=== PATIENT | male | born 1955 | race Caucasian/White ===

== ENCOUNTER 2022-12-26 17:45 | Inpatient (IN) | payer MEDICARE, OTHER, SELFPAY ==
[2022-12-26 19:06] VITALS: BP 142/88; PULSE 82; RESP 16; TEMP 36.4; O2SAT 94; O2SAT 96; BMI 27.5
--- NOTE | 2022-12-26 20:52 | HP.PCM_ITS ---
HPI - General General Date of Admission: 12/26/22 Date of Service: 12/26/22 Chief Complaint: Here for rehabilitation. HPI Narrative ADINA DAVID, is a 67 Male who presents with followin12/19/2022 Admit to [facility]. Shortness of breath, sepsis. Recently saw Dr. Pagan with increased shortness of breath, inability to sleep, productive cough with yellow/green sputum. Dr. Pagan planning bronchoscopy to evaluate for acute interstitial pneumonitis, rule out infection, in immunocompromised host. Pneumonitis since May or June and has ILD at the bases. Difficulty sleeping last night, seen in local ER. Fell due to fatigue, weakness. Increasing shortness of breath, productive cough. In ER, fever, increased shortness of breath, tachycardia, evaluated for sepsis, given 3 liters of IV fluid. Lactic acid 3.4. Troponin 144, WBC 52.1, Hemoglobin 7.3, Creatinine 2.2. CT head negative, CT cervical spine negative. CT chest showed groundglass opacities. Outpatient bronchoscopy tomorrow, check LDH. Vancomycin, Meropenem, Azithromycin, Bactrim, urinary antigens, sputum culture, for sepsis, pneumonia. Transfuse 1 unit PRBC for hemoglobin 7.3. LR 100ml per hour, urine studies for acute kidney injury, creatinine 2.2. Trend troponin for elevated troponin. Lovenox for DVT prophylaxis, history of pulmonary embolism. 12/19/2022 MRSA negative, Blood culture negative. 12/20/2022 Chest X-ray right middle lobe pneumonia. 12/23/2022 YAQUELIN negative for vegetations. 12/25/2022 4BM's this morning, C. diff negative. Productive cough of yellow, green sputum. Sputum culture showed excessive oral contamination. s/p Vancomycin x 4 days. Rocephin 2gm iv on day 6. Creatinine improved for 1.4, 2/2 prenal acute kidney injury. WBC 50 secondary to steroid, downtrending to 42. s/p 2 units PRBC transfusion. No anticoagulation for DVT/PE due to history of AVM, Doppler ultrasound shows chronic DVT. No anticoagulation for atrial fibrillation due to history of AVM, cardiology recommended EP. Lovenox 40mg daily for PE. Outside blood cultures growing pneumococcus. Respiratory panel positive rhinovirus. Rocephin 2gm, Solu-medrol 40mg bid, for pneumococcal pneumonia/bacteremia. Valtrex 1gm twice daily for orolabial herpes. Hemoglobin 8.8. Deescalate Rocephin to Cefdinir 300mg bid for total 2 weeks for sepsis, strep pneumo pneumonia/bacteremia. Valtrex 1gm bid for 1 week for orolabial herpes. Chronic Lovenox for right lower extremity superficial thrombophlebitis. 12/26/2022 Admit to TCU with debility, here for rehabilitation, strengthening, prior to discharge home with daughter who lives in [place], and works for [employer]. Patient used to live alone in [place], [place], and was not doing well. [facility], [facility] Medical History (Updated 12/26/22 @ 21:[address] Leighton Orozco MD) Rhodes esophagus CLL (chronic lymphocytic leukemia) COPD (chronic obstructive pulmonary disease) Coronary artery disease DVT (deep venous thrombosis) Hypercoagulable state Obstructive sleep apnea Pulmonary embolism Pulmonary fibrosis Home Medications Lactobacillus acidophilus PO DAILY PRN PRN diarrhea 12/26/22 [History Last Taken Unknown] acetaminophen 325 mg capsule (Tylenol) 650 mg PO Q4H Pain 12/26/22 [History Last Taken Unknown] albuterol sulfate 90 mcg/actuation aerosol inhaler 1 inh inhalation Q6H PRN shortness of breath or wheezing 12/26/22 [History Last Taken Unknown] amlodipine 2.5 mg tablet 2.5 mg PO DAILY BP 12/26/22 [History Last Taken 12/26/22 09:30] arginine 7 gram-glutamine 7 gram-calcium HMB 1.5 gram oral powder pack (Andrew) ea PO BID Wound Healing 12/26/22 [History Last Taken 12/26/22 09:30] aspirin 81 mg tablet,delayed release (Adult Aspirin Regimen) 81 mg PO DAILY Heart Health 12/26/22 [History Last Taken 12/26/22 09:30] calcitriol 0.25 mcg capsule 0.25 mcg PO DAILY Supplement 12/26/22 [History Last Taken 12/26/22 09:30] cefdinir 300 mg capsule 300 mg PO BID Antibiotic 12/26/22 [History Last Taken Unknown] enoxaparin 40 mg/0.4 mL subcutaneous syringe (Lovenox) 40 mg subcut DAILY anticoagulant 12/26/22 [History Last Taken Unknown] fluticasone fur. 200 mcg-umeclid 62.5 mcg-vilant 25 mcg inhalat.powder (Trelegy Ellipta) 1 inh inhalation DAILY Allergies 12/26/22 [History Last Taken Unknown] guaifenesin 600 mg tablet, extended release 12 hr (Mucinex) 600 mg PO BID Mucus 12/26/22 [History Last Taken 12/26/22 09:30] hydrochlorothiazide 25 mg tablet 25 mg PO DAILY BP 12/26/22 [History Last Taken 12/26/22 09:30] hydroxyurea 500 mg capsule 1,000 mg PO DAILY Check with primary doctor 12/26/22 [History Last Taken Unknown] ipratropium 0.5 mg-albuterol 3 mg (2.5 mg base)/3 mL nebulization soln 3 ml inhalation Q4H PRN shortness of breath or wheezing 12/26/22 [History Last Taken Unknown] magnesium oxide 400 mg (241.3 mg magnesium) tablet 400 mg PO DAILY Supplement 12/26/22 [History Last Taken Unknown] metoprolol tartrate 100 mg tablet 100 mg PO BID BP 12/26/22 [History Last Taken 12/26/22 09:30] multivitamin with minerals 1 cap PO DAILY Supple 12/26/22 [History Last Taken 12/26/22 09:30] omeprazole 40 mg capsule,delayed release 40 mg PO DAILY GERD 12/26/22 [History Last Taken Unknown] prednisone 20 mg tablet mg PO DAILY Check with primary Doctor 12/26/22 [History Last Taken 12/26/22 09:30] sodium bicarbonate 650 mg tablet 650 mg PO DAILY GERD 12/26/22 [History Last Taken 12/26/22 09:30] valacyclovir 1 gram tablet 1,000 mg PO Q12H Check with primary Doctor 12/26/22 [History Last Taken Unknown] zolpidem 5 mg tablet 5 mg PO QHS PRN PRN sleep 12/26/22 [History Last Taken Unknown] Allergy/AdvReac Type Severity Reaction Status Date / Time doxycycline Allergy Unknown Unknown Verified 12/26/22 19:08 Penicillin Allergy Unknown Unknown Uncoded 12/26/22 19:08 Social History (Updated 12/26/22 @ 21:[address] Leighton Orozco MD) household members: none Smoking Status: Never smoker alcohol intake: never substance use type: does not use ROS Constitutional Constitutional: Denies chills, fever(s) or weight gain ENT HEENT: Denies headache(s), nasal congestion or nasal discharge Cardiovascular Cardiovascular: Denies chest pain or palpitations Respiratory/Chest Respiratory/Chest: Denies cough, excessive phlegm production or shortness of breath with exertion Gastrointestinal Gastrointestinal: Denies abdominal pain, nausea or vomiting Genitourinary Genitourinary: Denies dysuria Musculoskeletal Musculoskeletal: Denies joint pain or joint swelling Integumentary Integumentary: Denies rash or wounds Neurologic Neurologic: Denies focal weakness, numbness or tingling Psychiatric Psychiatric: Denies anxiety, auditory hallucinations, depression, homicidal ideation or suicidal ideation Physical Exam Const alert General Appearance: cooperative HEENT normocephalic Eyes PERRL and EOMs intact bilaterally Neck supple, no JVD and no carotid bruits Resp normal respiratory effort and normal air movement Auscultation: rales, rhonchi and wheezes Cardio regular rate and regular rhythm GI normal to inspection, nondistended, normoactive bowel sounds, non-tender and non-distended Extremity normal capillary refill General Extremity: Negative for edema Skin no rashes or lesions noted General Skin Exam: no breakdown Psych affect normal Appearance: appropriate Assessment & Plan Assessment/Plan (1) COPD (chronic obstructive pulmonary disease): (2) Rhodes esophagus: (3) CLL (chronic lymphocytic leukemia): (4) Hypercoagulable state: (5) Coronary artery disease: (6) Obstructive sleep apnea: (7) DVT (deep venous thrombosis): (8) Pulmonary embolism: (9) Pulmonary fibrosis: (10) Debility: (11) Sepsis: (12) Streptococcal pneumonia: (13) Bacteremia due to Streptococcus pneumoniae: (14) Rhinovirus: (15) Herpes labialis: PLAN: Plan 67 year old male with below past medical history hospitalized for sepsis, strep pneumo pneumonia, strep pneumo bacteremia, rhinovirus, complicated by anemia requiring transfusion, orolabial herpes, admitted to TCU with debility, here for rehabilitation, strengthening, prior to discharge home with daughter. * Debility - PT/OT. * Pain - Tylenol 1000mg q6h prn pain (1-10). * Bowel - senna/colace 1 tablet bid prn, Magnesium citrate 300ml daily prn. * Adult immunization - Administer pneumonia vaccine, covid19 vaccine, flu vaccine as appropriate. * DVT prophylaxis - Lovenox 40mg sc daily. * COPD/Pulmonary fibrosis - Advair 1 puff Q12h, Incruse 1 puff daily, Duoneb 3ml q4h prn, Albuterol 1-2 puffs q6h prn, Prednisone 20mg daily. * Herpes labialis - Acyclovir 400mg tid x 7 days. * Hypertension - Metoprolol 100mg bid, Amlodipine 2.5mg daily, HCTZ 25mg daily. * Coronary artery disease - Metoprolol 100mg bid, Aspirin 81mg daily. * Hyperparathyroidism - Calcitriol 0.25mg daily. * Sepsis/S. Pneumo pneumonia/bacteremia - Cefdinir 300mg bid thru 01/09/2023. * Congestion - Mucinex 600mg bid. * CLL - Hydrea 1000mg daily. * Nutrition - Andrew 1 packet bid, MVI daily. * GI prophylaxis - Lactobacillus 1 daily prn. * Hypomagnesemia - Magnesium chloride 128mg daily. * GERD - Pantoprazole 40mg daily. * Metabolic acidosis - Sodium bicarb 650mg daily. * Insomnia - Zolpidem 5mg qhs prn, stable chronic residential use, GDR not recommended.
[2022-12-26] MEDS: Fluticasone/Salmeterol 232-14 Inhaler 1 PUFF INHALATION (22:22)
[2022-12-26] MEDS: Juven (unflavored) Packet 1 PACKET PO (22:23)
[2022-12-26] MEDS: guaiFENesin 600 MG Tablet PO (22:24)
[2022-12-26] MEDS: Cefdinir 300 MG Capsule PO (22:25)
[2022-12-26] MEDS: Acyclovir 200 MG Capsule 400 MG PO (22:25)
[2022-12-26 22:26] VITALS: BP 147/82; PULSE 88
[2022-12-26] MEDS: Metoprolol Tartrate 100 MG Tablet PO (22:26)
[2022-12-26] MEDS: Zolpidem Tartrate 5 MG Tablet PO (22:47)
[2022-12-27] MEDS: Acyclovir 200 MG Capsule 400 MG PO ×3 (05:46→21:35)
[2022-12-27 05:47] LABS: Basophil# 0.13 X10^3/uL; Basophil% 0.2 % (0-1); Eosinophil# 0.01 X10^3/uL; Hematocrit 34.4 % (40-54); Hemoglobin 9.9 g/dL (13.0-16.5); Lymphocyte % 81.3 % (19-41); Mean Corp Hgb Conc 28.8 g/dL (32-36); Mean Corpuscular Volume 111.3 fL (80-94); Mean Platelet Vol. 9.7 fl (6.2-12.0); Monocyte# 6.74 X10^3/uL; Monocyte% 10.3 % (0-10); NRBC Flagged by Analyzer 0 % (0-5); Neutrophil # 4.99 X10^3/uL (2.7-7.7); Neutrophil % 7.7 % (47-70); POSITIVE COUNT YES; POSITIVE DIFFERENTIAL YES; POSITIVE MORPHOLOGY YES; Platelet Count 517 K/mm3 (150-450); RBC Distribution Width SD 78.7 fl (35.1-43.9); Red Blood Count 3.09 M/mm3 (4.6-6.2)
[2022-12-27 05:52] LABS: Differential Indicated SCAN CRITERIA MET; White Blood Count 65.2 K/mm3 (4.4-11.0)
[2022-12-27 06:18] LABS: Differential Comment SCANNED; Reactive Lymphocyte 1+
[2022-12-27 06:47] LABS: Anion Gap 11 (5-15); BUN 44 mg/dL (7-18); BUN/Creat Ratio 28.9 RATIO (10-20); Calcium,Total 7.4 mg/dL (8.5-10.1); Chloride 109 mmol/L (98-107); Creatinine, Serum 1.52 mg/dL (0.70-1.30); EST Glomerular Filtration Rate 49 mL/min (>60); Est Glom Filt Rate - Afr Amer 59 mL/min (>60); Estimated Creatinine Clearance 44.38 ml/min; Glucose 75 mg/dL (74-106); Potassium 5.6 mmol/L (3.5-5.1); Sodium Level 140 mmol/L (136-145)
--- NOTE | 2022-12-27 06:49 | NURSING ---
Lab called to report critical WBC of 62.5. Dr. Orozco notified. Pt has CLL and is currently ordered prednisone. No new orders at this time.
[2022-12-27 09:21] VITALS: BP 127/76; PULSE 102
[2022-12-27] MEDS: predniSONE 20 MG Tablet PO (09:22)
[2022-12-27] MEDS: Sodium Polystyrene Sulfonate 15 GM/60 ML UDC 30 GM PO (09:22)
[2022-12-27] MEDS: Multivitamins,Ther W-Minerals Tablet 1 TABLET PO (09:22)
[2022-12-27] MEDS: Hydroxyurea 500 MG Capsule 1000 MG PO (09:23)
[2022-12-27] MEDS: Aspirin E.C. 81 MG Tablet PO (09:23)
[2022-12-27] MEDS: hydroCHLOROthiazide 25 MG Tablet PO (09:23)
[2022-12-27 09:24] VITALS: PULSE 102
[2022-12-27] MEDS: Enoxaparin 40 MG/0.4 ML Syringe SC (09:24)
[2022-12-27] MEDS: Magnesium Chloride 64 MG Delay Rel.Tablet 128 MG PO (09:24)
[2022-12-27] MEDS: Metoprolol Tartrate 100 MG Tablet PO ×2 (09:24→21:37)
[2022-12-27] MEDS: Calcitriol 0.25 MCG Capsule PO (09:25)
[2022-12-27] MEDS: Pantoprazole Sodium 40 MG Tablet PO (09:25)
[2022-12-27] MEDS: Cefdinir 300 MG Capsule PO ×2 (09:25→21:36)
[2022-12-27] MEDS: amLODIPine 2.5 MG Tablet PO (09:25)
[2022-12-27] MEDS: guaiFENesin 600 MG Tablet PO ×2 (09:25→21:36)
[2022-12-27] MEDS: Sodium Bicarbonate 650 MG Tablet PO (09:26)
[2022-12-27] MEDS: Umeclidinium Bromide Inhaler 1 PUFF INHALATION (09:26)
[2022-12-27] MEDS: Fluticasone/Salmeterol 232-14 Inhaler 1 PUFF INHALATION ×2 (09:27→21:33)
[2022-12-27] MEDS: Menthol/Lanolin/Calamine/Znox 113 GM Tube 1 APPLIC TOPICAL ×2 (09:28→21:45)
--- NOTE | 2022-12-27 10:38 | NURSING ---
Gold Layer Note; Activity Asset: Complete Siva is independent in his choice of daily activities. He has stated he is depressed and just needs to talk to people. He will benefit from 1.1 visits. He watches tv for his news and will read car, hunting and fishing magazines if available. At this time he would prefer independent activities over group. Staff will look for magazines for him remind him of daily activities and respect his right to say no.
--- NOTE | 2022-12-27 10:45 | NURSING ---
R' AGITATED DURING MED PASS THIS MORNING. R' COMPLAINED A LOT ABOUT THE CARE HE HAS RECEIVED AT OTHER HOSPITALS/OFFICES. R' WOULD THEN APOLOGIZE FOR HIS FRUSTRATION AND THEN GET ANGRY AND CLENCH HIS FISTS AND START YELLING ABOUT ALL HIS PAST CARE. 1:1 GIVEN. ANSWERED R' QUESTIONS AND OFFERED TO CALL ASSISTANT MANAGER OF OPERATIONS. HE AGREED. ASSISTANT MANAGER OF OPERATIONSKAYDEN NOTIFIED.
--- NOTE | 2022-12-27 10:52 | CASEMGMT ---
Social Work Met with patient to complete initial assessment. Introduced self and role. Verified contacts. Discussed code status and confirmed full code. Pt agreed to ask dtr to bring in copies of advanced directives. Educated to Medicare benefit. Encouraged to contact secondary insurance to ensure copay coverage. Pt's goal is to return home alone. However, pt may DC home with dtr initially. SW will continue to follow for DC planning. ZHANG SheridanW
--- NOTE | 2022-12-27 12:20 | NURSING ---
DR GARNICA AWARE OF AM LABS, K+ LEVEL-KAYEXELATE ORDERED. ALSO, AWARE OF WBC. HX CLL AND CURRENTLY ON PREDNISONE.
[2022-12-27] MEDS: Tuberculin,Purif.prot.deriv. 50 TU/ML Vial 0.1 ML ID (12:35)
[2022-12-27 15:26] VITALS: BP 139/68; PULSE 86; RESP 18; TEMP 36.2; O2SAT 96
--- NOTE | 2022-12-27 15:45 | NURSING ---
Updated family that staff members and patients tested covid positive.
[2022-12-27] MEDS: Juven (unflavored) Packet 1 PACKET PO (21:34)
[2022-12-27] MEDS: Zolpidem Tartrate 5 MG Tablet 10 MG PO (21:34)
[2022-12-27 21:37] VITALS: BP 141/76; PULSE 94
[2022-12-28] MEDS: Acyclovir 200 MG Capsule 400 MG PO ×3 (05:21→22:05)
[2022-12-28 05:30] VITALS: O2SAT 96
[2022-12-28 08:38] LABS: Absolute Lymphocyte Count 52.46 X10^3/uL (0.83-4.51); Absolute Neutrophil Count 5.8 X10^3/uL (2.0-7.7); Basophil# 0.16 X10^3/uL; Basophil% 0.3 % (0-1); Eosinophil# 0.01 X10^3/uL; Hematocrit 34.1 % (40-54); Hemoglobin 9.9 g/dL (13.0-16.5); Lymphocyte # 52.46 X10^3/ul (0.83-4.51); Lymphocyte % 82.1 % (19-41); Mean Corpuscular Hgb 32.7 pg (27.0-32.0); Mean Corpuscular Volume 112.5 fL (80-94); Mean Platelet Vol. 9.5 fl (6.2-12.0); Monocyte# 5.24 X10^3/uL; Monocyte% 8.2 % (0-10); NRBC Flagged by Analyzer 0 % (0-5); Neutrophil # 5.77 X10^3/uL (2.7-7.7); POSITIVE COUNT YES; POSITIVE DIFFERENTIAL YES; POSITIVE MORPHOLOGY YES; Platelet Count 507 K/mm3 (150-450); RBC Distribution Width CV 20.1 % (11.6-14.6); RBC Distribution Width SD 78.3 fl (35.1-43.9); Red Blood Count 3.03 M/mm3 (4.6-6.2); White Blood Count 63.9 K/mm3 (4.4-11.0)
[2022-12-28 08:40] LABS: Differential Indicated SCAN CRITERIA MET
[2022-12-28 08:51] LABS: Anion Gap 10 (5-15); BUN 32 mg/dL (7-18); BUN/Creat Ratio 21.1 RATIO (10-20); Calcium,Total 7.2 mg/dL (8.5-10.1); Chloride 110 mmol/L (98-107); Creatinine, Serum 1.52 mg/dL (0.70-1.30); EST Glomerular Filtration Rate 49 mL/min (>60); Est Glom Filt Rate - Afr Amer 59 mL/min (>60); Estimated Creatinine Clearance 44.38 ml/min; Glucose 66 mg/dL (74-106); Potassium 5.1 mmol/L (3.5-5.1); Sodium Level 140 mmol/L (136-145)
[2022-12-28 09:00] VITALS: BP 170/87; PULSE 101; RESP 16; TEMP 36.4; O2SAT 97
[2022-12-28 09:14] LABS: Anisocytosis 2+; Microcytosis 63.9; Smudge Cells 1+
[2022-12-28] MEDS: Enoxaparin 40 MG/0.4 ML Syringe SC (09:56)
[2022-12-28] MEDS: Pantoprazole Sodium 40 MG Tablet PO (09:56)
[2022-12-28] MEDS: Calcitriol 0.25 MCG Capsule PO (09:56)
[2022-12-28] MEDS: Fluticasone/Salmeterol 232-14 Inhaler 1 PUFF INHALATION ×2 (09:56→22:05)
[2022-12-28] MEDS: Umeclidinium Bromide Inhaler 1 PUFF INHALATION (09:56)
[2022-12-28] MEDS: hydroCHLOROthiazide 25 MG Tablet PO (09:57)
[2022-12-28] MEDS: guaiFENesin 600 MG Tablet PO ×2 (09:57→22:06)
[2022-12-28] MEDS: Multivitamins,Ther W-Minerals Tablet 1 TABLET PO (09:57)
[2022-12-28] MEDS: amLODIPine 2.5 MG Tablet PO (09:57)
[2022-12-28] MEDS: Aspirin E.C. 81 MG Tablet PO (09:57)
[2022-12-28] MEDS: Cefdinir 300 MG Capsule PO ×2 (09:57→22:06)
[2022-12-28] MEDS: Hydroxyurea 500 MG Capsule 1000 MG PO (09:57)
[2022-12-28] MEDS: Magnesium Chloride 64 MG Delay Rel.Tablet 128 MG PO (09:57)
[2022-12-28] MEDS: Sodium Bicarbonate 650 MG Tablet PO (09:57)
[2022-12-28] MEDS: predniSONE 20 MG Tablet PO (09:57)
[2022-12-28 09:59] VITALS: BP 170/87; PULSE 101
[2022-12-28] MEDS: Metoprolol Tartrate 100 MG Tablet PO ×2 (09:59→22:06)
[2022-12-28] MEDS: Menthol/Lanolin/Calamine/Znox 113 GM Tube 1 APPLIC TOPICAL ×2 (10:05→22:04)
[2022-12-28] MEDS: Sodium Polystyrene Sulfonate 15 GM/60 ML UDC 30 GM PO (12:22)
--- NOTE | 2022-12-28 14:17 | NS ---
MST score = 3 d/t decreased appetite and unknown usual body wt. Provided copy of daily specials/first choice menu w/ instructions on how to order. Food dislikes: potassium - requesting no potassium at meals
[2022-12-28 22:00] VITALS: PULSE 88; RESP 16; O2SAT 99
[2022-12-28] MEDS: Zolpidem Tartrate 5 MG Tablet 10 MG PO (22:04)
[2022-12-28 22:06] VITALS: BP 153/89; PULSE 88
--- NOTE | 2022-12-28 22:28 | NURSING ---
Patient observed ambulating in room, educated on importance of utilizing call light for staff assist with all ambulation in an effort to promote safety. Patient states I can walk around just fine, do you want me to shit all over the floor so you can clean it up? Patient educated on safety as priority and staff able to assist patient with any incontinence needs. Patient states On Friday we are supposed to get this situated so I can be up in my room. Patient educated on current therapy recommendation for Ax1 with transfers/ambulation, verbalizes understanding, verbalizes understanding of call light function and how to use. Patient observed with steady gait, and stand-by assist. Assisted to recliner per patient preference. Patient observed at times with flight of ideas, A&Ox3, reminiscing on [place]lew of misdiagnosis since the time I was [age], especially at the [facility]. Patient expresses preference not to be woken by staff prior to 0800. Preference relayed to staff. Patient states I don't want that lab coming in here either until 0800. Lab contacted and notified of patient preference. Snack offered and accepted. Denies further requests. Call light in reach./
[2022-12-29 09:52] VITALS: BP 147/79; PULSE 91; RESP 18; TEMP 36.2; O2SAT 97
[2022-12-29] MEDS: Umeclidinium Bromide Inhaler 1 PUFF INHALATION (09:59)
[2022-12-29] MEDS: Fluticasone/Salmeterol 232-14 Inhaler 1 PUFF INHALATION ×2 (09:59→21:46)
[2022-12-29] MEDS: Hydroxyurea 500 MG Capsule 1000 MG PO (09:59)
[2022-12-29] MEDS: Aspirin E.C. 81 MG Tablet PO (09:59)
[2022-12-29] MEDS: hydroCHLOROthiazide 25 MG Tablet PO (09:59)
[2022-12-29] MEDS: Multivitamins,Ther W-Minerals Tablet 1 TABLET PO (09:59)
[2022-12-29] MEDS: Menthol/Lanolin/Calamine/Znox 113 GM Tube 1 APPLIC TOPICAL ×2 (09:59→22:21)
[2022-12-29] MEDS: predniSONE 20 MG Tablet PO (09:59)
[2022-12-29 10:00] VITALS: BP 147/79; PULSE 91; RESP 16; O2SAT 97
[2022-12-29] MEDS: Pantoprazole Sodium 40 MG Tablet PO (10:00)
[2022-12-29] MEDS: guaiFENesin 600 MG Tablet PO ×2 (10:00→21:46)
[2022-12-29] MEDS: Enoxaparin 40 MG/0.4 ML Syringe SC (10:00)
[2022-12-29] MEDS: Metoprolol Tartrate 100 MG Tablet PO ×2 (10:00→21:46)
[2022-12-29] MEDS: Cefdinir 300 MG Capsule PO ×2 (10:00→21:46)
[2022-12-29] MEDS: Magnesium Chloride 64 MG Delay Rel.Tablet 128 MG PO (10:00)
[2022-12-29] MEDS: Sodium Bicarbonate 650 MG Tablet PO (10:00)
[2022-12-29] MEDS: Calcitriol 0.25 MCG Capsule PO (10:00)
[2022-12-29] MEDS: amLODIPine 2.5 MG Tablet PO (10:00)
[2022-12-29 10:54] LABS: Anion Gap 6 (5-15); BUN 33 mg/dL (7-18); BUN/Creat Ratio 20.9 RATIO (10-20); Chloride 108 mmol/L (98-107); Creatinine, Serum 1.58 mg/dL (0.70-1.30); EST Glomerular Filtration Rate 46 mL/min (>60); Est Glom Filt Rate - Afr Amer 56 mL/min (>60); Estimated Creatinine Clearance 42.69 ml/min; Glucose 129 mg/dL (74-106); Potassium 3.6 mmol/L (3.5-5.1); Sodium Level 140 mmol/L (136-145)
--- NOTE | 2022-12-29 12:43 | NURSING ---
pt aware of covid positive pts today on unit
--- NOTE | 2022-12-29 12:49 | NURSING ---
pt does a lot of rambling about knowing millionaires that are his friends, jumping subjects to having many doctors who have misdiagnosed him over the years, then jumping onto talking about his bleeding from his stomach and that its been going on for years and doctors can't seem to figure it out. very hard to follow pt. pt was tearful yesterday talking about several good friends of his that passed. asked to speak to mental health doctor. message left for dr juarez, pt aware. pt complains about dietary sending him a regular v8 and it needs to be low sodium. pt happy that he did get low sodium today.
--- NOTE | 2022-12-29 19:54 | NURSING ---
dr juarez updated on pt requesting to see mental health MD, new order to schedule appt with Dr Gomes
[2022-12-29 21:46] VITALS: BP 119/69; PULSE 90
[2022-12-29] MEDS: Zolpidem Tartrate 5 MG Tablet 10 MG PO (21:46)
[2022-12-30] MEDS: Pantoprazole Sodium 40 MG Tablet PO (09:14)
[2022-12-30] MEDS: predniSONE 20 MG Tablet PO (09:14)
[2022-12-30] MEDS: Calcitriol 0.25 MCG Capsule PO (09:15)
[2022-12-30] MEDS: guaiFENesin 600 MG Tablet PO (09:15)
[2022-12-30] MEDS: Magnesium Chloride 64 MG Delay Rel.Tablet 128 MG PO (09:15)
[2022-12-30] MEDS: hydroCHLOROthiazide 25 MG Tablet PO (09:15)
[2022-12-30] MEDS: Acyclovir 200 MG Capsule 400 MG PO ×3 (09:15→21:34)
[2022-12-30] MEDS: Cefdinir 300 MG Capsule PO ×2 (09:15→21:34)
[2022-12-30] MEDS: Sodium Bicarbonate 650 MG Tablet PO (09:15)
[2022-12-30 09:16] VITALS: PULSE 84
[2022-12-30] MEDS: Enoxaparin 40 MG/0.4 ML Syringe SC (09:16)
[2022-12-30] MEDS: Metoprolol Tartrate 100 MG Tablet PO ×2 (09:16→21:33)
[2022-12-30] MEDS: amLODIPine 2.5 MG Tablet PO (09:16)
[2022-12-30] MEDS: Aspirin E.C. 81 MG Tablet PO (09:16)
[2022-12-30] MEDS: Multivitamins,Ther W-Minerals Tablet 1 TABLET PO (09:16)
[2022-12-30] MEDS: Hydroxyurea 500 MG Capsule 1000 MG PO (09:17)
[2022-12-30] MEDS: Umeclidinium Bromide Inhaler 1 PUFF INHALATION (09:18)
[2022-12-30] MEDS: Fluticasone/Salmeterol 232-14 Inhaler 1 PUFF INHALATION ×2 (09:18→21:33)
[2022-12-30 10:01] LABS: Pathologist Review Reviewed
[2022-12-30 13:39] LABS: Pathologist Review Reviewed
[2022-12-30 15:02] VITALS: BP 115/73; PULSE 85; RESP 17; TEMP 36.1; O2SAT 95
--- NOTE | 2022-12-30 15:54 | PHA.CONS_ITS ---
Documented by User: Abebe Quinonez 12/30/22 17:04 TCU RX Drug Regimen Review Subjective/Objective Subjective/Objective: Subjective: 67 year old male with below past medical history hospitalized for sepsis, strep pneumo pneumonia, strep pneumo bacteremia, rhinovirus, complicated by anemia requiring transfusion, orolabial herpes, admitted to TCU with debility, here for rehabilitation, strengthening, prior to discharge home with daughter. Objective: Allergies doxycycline Allergy (Unknown, Verified 12/26/22 19:08) Unknown Penicillin Allergy (Unknown, Uncoded 12/26/22 19:08) Unknown Current Medications Generic Name Dose Route Start Last Admin Trade Name Freq PRN Reason Stop Dose Admin Acetaminophen 1,000 mg 12/26/22 21:32 Acetaminophen 500 Mg Tablet PO Q6H PRN PRN Pain Score 1-10 Acyclovir 400 mg 12/30/22 08:00 12/30/22 14:51 Acyclovir 200 Mg Capsule PO 400 mg TID@0800,1400,2200 FELICITY Administration Albuterol Sulfate 1 - 2 puff 12/26/22 19:18 Albuterol Ih (6.7 Gm) 1 Puff Inhaler INHALATION Q6H PRN shortness of breath or wheezing Albuterol/Ipratropium 3 ml 12/26/22 18:43 Ipratropium/Albuterol Sulfate 3 Ml Ampul.Neb INHALATION Q4H PRN shortness of breath or wheezing Amlodipine Besylate 2.5 mg 12/27/22 10:00 12/30/22 09:16 Amlodipine 2.5 Mg Tablet PO 2.5 mg DAILY FELICITY Administration Aspirin 81 mg 12/27/22 10:00 12/30/22 09:16 Aspirin E.C. 81 Mg Tablet PO 81 mg DAILY FELICITY Administration Calamine/Phenol 1 applic 12/27/22 10:00 12/30/22 09:19 Menthol/Lanolin/Calamine/Znox 113 Gm Tube TOPICAL Not Given BID FELICITY Protocol Calcitriol 0.25 mcg 12/27/22 10:00 12/30/22 09:15 Calcitriol 0.25 Mcg Capsule PO 0.25 mcg DAILY FLEICITY Administration Cefdinir 300 mg 12/26/22 22:00 12/30/22 09:15 Cefdinir 300 Mg Capsule PO 01/09/23 06:00 300 mg BID FELICITY Administration Enoxaparin Sodium 40 mg 12/27/22 10:00 12/30/22 09:16 Enoxaparin 40 Mg/0.4 Ml Syringe SC 40 mg DAILY FELICITY Administration Guaifenesin 600 mg 12/26/22 22:00 12/30/22 09:15 Guaifenesin 600 Mg Tablet PO 600 mg BID FELICITY Administration Hydrochlorothiazide 25 mg 12/27/22 10:00 12/30/22 09:15 Hydrochlorothiazide 25 Mg Tablet PO 25 mg DAILY FELICITY Administration Hydroxyurea 1,000 mg 12/27/22 10:00 12/30/22 09:17 Hydroxyurea 500 Mg Capsule PO 1,000 mg DAILY FELICITY Administration Lactobacillus Acidophilus 1 tablet 12/26/22 19:30 Lactobacillus Acidophilus PO DAILY PRN PRN DIARRHEA/LOOSE STOOLS Magnesium Chloride 128 mg 12/27/22 10:00 12/30/22 09:15 Magnesium Chloride 64 Mg Delay Rel.Tablet PO 128 mg DAILY FELICITY Administration Magnesium Citrate 300 ml 12/26/22 21:31 Magnesium Citrate 300 Ml PO DAILY PRN Constipation Metoprolol Tartrate 100 mg 12/26/22 22:00 12/30/22 09:16 Metoprolol Tartrate 100 Mg Tablet PO 100 mg BID FELICITY Administration Multivitamins/Minerals 1 tablet 12/27/22 08:00 12/30/22 09:16 Multivitamins,Ther W-Minerals Tablet PO 1 tablet DAILYCM FELICITY Administration Pantoprazole Sodium 40 mg 12/27/22 10:00 12/30/22 09:14 Pantoprazole Sodium 40 Mg Tablet PO 40 mg DAILY FELICITY Administration Prednisone 20 mg 12/27/22 08:00 12/30/22 09:14 Prednisone 20 Mg Tablet PO 20 mg DAILYCM FELICITY Administration Fluticasone/Salmeterol 1 puff 12/26/22 22:00 12/30/22 09:18 Fluticasone/Salmeterol 232-14 Inhaler INHALATION 1 puff Q12 FELICITY Administration Senna/Docusate Sodium 1 tablet 12/26/22 21:31 Senna/Docusate Sodium 1 Tablet PO BID PRN PRN Constipation Sodium Bicarbonate 650 mg 12/27/22 10:00 12/30/22 09:15 Sodium Bicarbonate 650 Mg Tablet PO 650 mg DAILY FELICITY Administration Tuberculin PPD 0.1 ml 01/03/23 10:00 Tuberculin,Purif.Prot.Deriv. 50 Tu/Ml Vial ID 01/03/23 10:01 X1 ONE Umeclidinium [place] 1 puff 12/27/22 10:00 12/30/22 09:18 Umeclidinium [place] Inhaler INHALATION 1 puff DAILY FELICITY Administration Zolpidem Tartrate 10 mg 12/27/22 22:00 12/29/22 21:46 Zolpidem Tartrate 5 Mg Tablet PO 10 mg QHS FELICITY Administration Problem List (Updated 12/26/22 @ 21:[address] Leighton Orozco MD) Herpes labialis (Acute) Rhinovirus (Acute) Bacteremia due to Streptococcus pneumoniae (Acute) Streptococcal pneumonia (Acute) Sepsis (Acute) Debility (Acute) Pulmonary fibrosis (Acute) Pulmonary embolism (Acute) DVT (deep venous thrombosis) (Acute) Obstructive sleep apnea (Acute) Coronary artery disease (Acute) Hypercoagulable state (Acute) CLL (chronic lymphocytic leukemia) (Chronic) Rhodes esophagus (Acute) COPD (chronic obstructive pulmonary disease) (Chronic) Vital Signs Temp Pulse Resp BP Pulse Ox O2 Del Method 96.9 F L 85 17 115/73 95 Room Air 12/30/22 15:02 12/30/22 15:02 12/30/22 15:02 12/30/22 15:02 12/30/22 15:02 12/30/22 15:02 Oxygen Delivery Method Room Air Weight: 82.1 kg Body Mass Index (BMI) 27.5 Sodium 140 mmol/L (136-145) 12/29/22 09:15 Potassium 3.6 mmol/L (3.5-5.1) 12/29/22 09:15 Chloride 108 mmol/L (98-107) H 12/29/22 09:15 Carbon Dioxide 26.0 mmol/L (21.0-32.0) 12/29/22 09:15 Anion Gap 6 (5-15) 12/29/22 09:15 BUN 33 mg/dL (7-18) H 12/29/22 09:15 Creatinine 1.58 mg/dL (0.70-1.30) H 12/29/22 09:15 Est GFR (MDRD) Af Amer 56 mL/min (>60) L 12/29/22 09:15 Est GFR (MDRD) Non-Af 46 mL/min (>60) L 12/29/22 09:15 BUN/Creatinine Ratio 20.9 RATIO (10-20) H 12/29/22 09:15 Glucose 129 mg/dL (74-106) H 12/29/22 09:15 Assessment/Plan: 1. Pain: acetaminophen 1000 mg PO Q6H PRN pain. The patient has not required any doses of PRN tylenol this admission. Please continue to monitor for PRN usage as well as LFTs (no LFTs documented this admission). 2. Bowel: senna/docusate 1 tablet PO BID PRN constipation, magnesium citrate 300 mL PO daily PRN constipation. The patient has not used any doses of either senna/docusate or magnesium citrate this admission. The patient does not have a documented bowel movement yet this admission. Please continue to monitor for constipation/diarrhea. As the patient has not had a documented bowel movement yet this admission consider changing senna/docusate to 2 tablets PO BID scheduled until patient has a bowel movement. 3. Sepsis/strep pneumonia bacteremia: cefdinir 300 mg PO BID through 01/09/23. Please continue to monitor for s/s of infection such as fever (temperature 96.9 F on 12/30/22), white blood cell count (WBC =63.9 K/mm3 on 12/28/22), as well as for chills, and diarrhea. 4. DVT prophylaxis: enoxaparin 40 mg SQ daily. Please continue to monitor for s/s of DVT such as redness/warmth/swelling, as well as hemoglobin (Hgb = 9.9 g/dL on 12/28/22), platelet count (Plt = 507 K/mm3 on 12/28/22), renal function (serum creatinine = 1.58 mg/dL with creatinine clearance ~ 43 on 12/29/22) and for s/s of bleeding. 5. COPD/pulmonary fibrosis: albuterol 1-2 puffs Q6H PRN shortness of breath, fluticasone/salmeterol 232-14 1 puff Q12H, ipratropium/albuterol 3 mL nebulized Q4H PRN shortness of breath, umeclidinium 1 puff daily, prednisone 20 mg PO daily. The patient has not used any PRN doses of ipratropium/albuterol, or albuterol this admission. Please continue to monitor for shortness of breath, PRN usage, pneumonia, oral thrush, oxygen saturation (recently 94-99% on room air), respiratory rate (recently 16-18 breaths/min), s/s of delirium/confusion (prednisone Beer's criteria), palpitations, heart rate (recently 82-102), anticholinergic side effects such as dry mouth, urinary retention, delirium and constipation, blood glucose (BG = 129 mg/dL on 12/29/22), blood pressure (recent range 115-170/69-89 mm Hg), GI distress that would indicate an ulcer, sodium (Na = 140 mmol on12/29/22), and potassium level (K=3.6 on 12/29/22). 6. Herpes labialis: acyclovir 400 mg PO TID x 7 days. Please continue to monitor for resolution of herpes labialis, as well as renal function (serum creatinine = 1.58 mg/dL with creatinine clearance ~ 43 on 12/29/22) and for malaise. Please consider adding a stop date to the acyclovir if this is to end after 7 days. 7. Hypertension/CAD: metoprolol tartrate 100 mg PO BID, amlodipine 2.5 mg PO daily, hydrochlorothiazide 25 mg PO daily, aspirin 81 mg PO daily. Please continue to monitor heart rate (recent range 82-102), blood pressure (recent range 115-170/69-89 mm Hg), lower extremity edema, tiredness, sodium level (Na = 140 mmol/L on 12/29/22), potassium level (K=3.6 mmol/L on 12/29/22), renal function (serum creatinine = 1.58 mg/dL with creatinine clearance ~ 43 on 12/29/22), hemoglobin (Hgb = 9.9 g/dL on 12/28/22), platelet count (Plt = 507 K/mm3 on 12/28/22), and for s/s of bleeding and GI distress that would indicate an ulcer. 8. Hyperparathyroidism: calcitriol 0.25 mg PO daily. Please continue to monitor for bone loss/resorption including fractures, calcium level (Ca = 9.0 mg/dL on 12/29/22), as well as parathyroid hormone level (no PTH level on chart). 9. Congestion: guaifenesin 600 mg PO BID. Please continue to monitor for congestion, as well as for dizziness. 10. Chronic lymphocytic leukemia: hydroxyurea 1000 mg PO daily. Please continue to monitor WBC count (WBC =63.9 K/mm3 on 12/28/22), ANC (ANC = 5.8 on 12/28/22), hemoglobin (Hgb = 9.9 g/dL on 12/28/22), platelet count (Plt = 507 K/mm3 on 12/28/22), renal function (serum creatinine = 1.58 mg/dL with creatinine clearance ~ 43 on 12/29/22) for eczema, xeroderma, s/s of infection, and headache. 11. GI prophylaxis: lactobacillus 1 tablet PO daily PRN. The patient has not used any PRN doses of lactobacillus this admission. Please continue to monitor PRN usage and for GI distress/diarrhea. 12. Hypomagnesemia: magnesium chloride 128 mg PO daily. Please continue to monitor magnesium level (no magnesium level this admission), and for diarrhea. Please consider ordering a magnesium level if clinically indicated. 13. GERD: pantoprazole 40 mg PO daily. Please continue to monitor for s/s of GERD, for diarrhea that would indicate clostridium difficile infection (Beer's criteria), as well as for s/s of bone/loss or resorption such as fractures. 14. Metabolic acidosis: sodium bicarbonate 650 mg PO daily. Please continue to monitor sodium bicarbonate levels (venous carbon dioxide = 26.0 on 01/08/23), as well as oxygen saturation (recently 94-99% on room air), respiratory rate (recently 16-18 breaths/min), and renal function (serum creatinine = 1.58 mg/dL with creatinine clearance ~ 43 on 12/29/22). The patients bicarb level is > 24.0 as of 12/29/22, consider a trial of discontinuing sodium bicarbonate if clinically indicated. 15. Skin protection: calmoseptine 1 application topically BID. Please continue to monitor skin for breakdown. 16. Nutrition: multivitamin 1 tablet PO daily. Please continue to monitor nutritional status. Assessment/Plan for indications treated with psychotropic medications: 1. Insomnia: zolpidem 5 mg PO QHS PRN insomnia. Please see provider notes regarding stable long-term dose, GDR not recommended. Please continue to monitor for delirium/falls (Beer's criteria), as well as for dizziness, drowsiness, hallucinations and SI. Medical chart and medication regimen reviewed. The following medication irregularities or issues were identified: 1. Bowel: senna/docusate 1 tablet PO BID PRN constipation, magnesium citrate 300 mL PO daily PRN constipation. The patient has not used any doses of either senna/docusate or magnesium citrate this admission. The patient does not have a documented bowel movement yet this admission. Please continue to monitor for constipation/diarrhea. As the patient has not had a documented bowel movement yet this admission consider changing senna/docusate to 2 tablets PO BID scheduled until patient has a bowel movement. 2. Herpes labialis: acyclovir 400 mg PO TID x 7 days. Please continue to monitor for resolution of herpes labialis, as well as renal function (serum creatinine = 1.58 mg/dL with creatinine clearance ~ 43 on 12/29/22) and for malaise. Please consider adding a stop date to the acyclovir if this is to end after 7 days. 3. Hypomagnesemia: magnesium chloride 128 mg PO daily. Please continue to monitor magnesium level (no magnesium level this admission), and for diarrhea. Please consider ordering a magnesium level if clinically indicated. 4. Metabolic acidosis: sodium bicarbonate 650 mg PO daily. Please continue to monitor sodium bicarbonate levels (venous carbon dioxide = 26.0 on 01/08/23), as well as oxygen saturation (recently 94-99% on room air), respiratory rate (recently 16-18 breaths/min), and renal function (serum creatinine = 1.58 mg/dL with creatinine clearance ~ 43 on 12/29/22). The patients bicarb level is > 24.0 as of 12/29/22, consider a trial of discontinuing sodium bicarbonate if clinically indicated. Date Date of Note:: 12/30/22 Documented by User: Dr. Leighton Orozco MD 12/30/22 18:45 TCU RX Drug Regimen Review Provider Comments Provider responsibility Provider Comments to Recommendations by Pharmacy: Agree
--- NOTE | 2022-12-30 16:25 | CHAPLAIN ---
Type of Pastoral Visit _x__ Initial Visit ___ Follow-up Visit ___ On-call Visit ___ General Patient Visit ___ Spiritual Assessment ___ Family Conference ___ Bereavement ___ Rapid Response ___ Code Blue ___ Other (describe below) Pastoral Care Referral From _x__ Patient _x__ Family _x__ Nurse ___ Physician ___ Car Hostler ___ Police Shift Commander ___ Other (describe below) Sacrament/Intervention _x__ Active listening ___ Anointing ___ Caodaism ___ Bereavement ___ Communion _x__ Ashlyn exploration ___ _x__ Life review _x__ Prayer ___ Reconciliation ___ Sacrament of Sick _x__ Supportive presence ___ Wedding ___ Other (describe below) Pastoral Comments RN gave referral that patient and his family think a spiritual care visit would be good; pt is welcoming and eager to talk; pt gives some whole life history of botched medical decisions and care but admits that he had some good doctors and care along the way too; pt's in recent years to cancer after a 14 year clancy that left him inspired by her determination and being tough; pt has a daughter, MARTÍN, and two grandchildren that are young for his support; pt admits to having strong feelings about his life story of difficulties and disappointments and leading in to bitterness; at one point pt admitted that I am not very scientologist but my was from a big Rastafari family and she had ashlyn; yet pt stated that he went to the jain to pray when I was discharged last from the hospital; when pressed about the meaning of this the pt stated that he went to pray for himself; pt is tearful and speaks of his grandmother who always took him to jain and to the classes every Friday; pt offers that opto mechanical technician can return if he wants to hear more of this long life story; this opto mechanical technician will remain available to patient for support and care; prayer given
--- NOTE | 2022-12-30 16:29 | NURSING ---
Family given update additional staff members have covid.
[2022-12-30] MEDS: Acetaminophen 500 MG Tablet 1000 MG PO (17:30)
[2022-12-30 21:33] VITALS: BP 129/76; PULSE 82
[2022-12-30] MEDS: Zolpidem Tartrate 5 MG Tablet 10 MG PO (21:33)
[2022-12-30 22:33] VITALS: PULSE 81; RESP 18; O2SAT 95
[2022-12-31] MEDS: Acyclovir 200 MG Capsule 400 MG PO ×3 (09:01→21:58)
[2022-12-31] MEDS: predniSONE 10 MG Tablet PO (09:01)
[2022-12-31] MEDS: Cefdinir 300 MG Capsule PO ×2 (09:02→21:56)
[2022-12-31] MEDS: hydroCHLOROthiazide 25 MG Tablet PO (09:02)
[2022-12-31] MEDS: Hydroxyurea 500 MG Capsule 1000 MG PO (09:02)
[2022-12-31] MEDS: Aspirin E.C. 81 MG Tablet PO (09:02)
[2022-12-31] MEDS: Pantoprazole Sodium 40 MG Tablet PO (09:03)
[2022-12-31] MEDS: Calcitriol 0.25 MCG Capsule PO (09:04)
[2022-12-31] MEDS: Fluticasone/Salmeterol 232-14 Inhaler 1 PUFF INHALATION ×2 (09:13→21:57)
[2022-12-31] MEDS: Umeclidinium Bromide Inhaler 1 PUFF INHALATION (09:13)
[2022-12-31 09:30] VITALS: BP 138/88; PULSE 97
[2022-12-31] MEDS: Metoprolol Tartrate 100 MG Tablet PO ×2 (09:30→21:55)
[2022-12-31 09:36] VITALS: PULSE 97
[2022-12-31 16:00] VITALS: BP 138/72; PULSE 87; RESP 16; TEMP 36.4; O2SAT 97
[2022-12-31 21:55] VITALS: BP 120/72; PULSE 88
[2022-12-31] MEDS: Menthol/Lanolin/Calamine/Znox 113 GM Tube 1 APPLIC TOPICAL (22:00)
[2022-12-31] MEDS: Zolpidem Tartrate 5 MG Tablet 10 MG PO (22:04)
[2023-01-01 06:44] LABS: Magnesium 1.4 mg/dL (1.6-2.6)
[2023-01-01] MEDS: Acyclovir 200 MG Capsule 400 MG PO ×3 (10:06→17:25)
[2023-01-01] MEDS: hydroCHLOROthiazide 25 MG Tablet PO (10:06)
[2023-01-01] MEDS: predniSONE 10 MG Tablet PO (10:06)
[2023-01-01] MEDS: Pantoprazole Sodium 40 MG Tablet PO (10:06)
[2023-01-01] MEDS: Aspirin E.C. 81 MG Tablet PO (10:06)
[2023-01-01] MEDS: Hydroxyurea 500 MG Capsule 1000 MG PO (10:07)
[2023-01-01] MEDS: Fluticasone/Salmeterol 232-14 Inhaler 1 PUFF INHALATION ×2 (10:08→22:22)
[2023-01-01] MEDS: Umeclidinium Bromide Inhaler 1 PUFF INHALATION (10:08)
[2023-01-01] MEDS: Cefdinir 300 MG Capsule PO ×2 (10:09→22:24)
[2023-01-01] MEDS: Calcitriol 0.25 MCG Capsule PO (10:10)
[2023-01-01] MEDS: Magnesium Chloride 64 MG Delay Rel.Tablet 128 MG PO (10:15)
[2023-01-01 10:17] VITALS: BP 133/75; PULSE 94
[2023-01-01] MEDS: Metoprolol Tartrate 100 MG Tablet PO ×2 (10:17→22:23)
--- NOTE | 2023-01-01 13:02 | CON.PCM.RE_ITS ---
Assessment & Plan Assessment/Plan (1) CKD (chronic kidney disease), stage III: (2) CLL (chronic lymphocytic leukemia): PLAN: Plan This is a 67-year-old male with past medical history significant for CLL, hypert ension, GERD, arthritis, BPH, AVM, right renal cell carcinoma status post right nephrectomy, CKD stage III (followed by Dr. Gruber) who was admitted to TCU unit for rehab after recent hospitalization for sepsis at [facility]. Nephrology consulted as patient has history of chronic kidney disease stage III. Patient reports his baseline EGFR is mid 30 range. When at [facility] according to documentation serum creatinine peaked around 2.2 mg/dL (on 12/19/2022) and it was felt that DENG was prerenal, secondary to ATN and sepsis. Patient did not require any renal replacement therapy. His creatinine was downtrending during hospitalization and had improved to 1.4 mg/dL by time of hospital discharge. Labs reviewed during this hospitalization, on 12/27 serum creatinine 1.52, estimated GFR 49 mL/min. Last labs drawn 12/29 serum creatinine 1.58 mg/dL, estimated GFR 46 mL/min. Overall renal function remaining stable and at baseline. Patient is nonoliguric. Volume status appears near euvolemic. Patient is not on any JUANITA-I or ARB's. He is on hydrochlorothiazide 25 mg daily and we will continue that for now. We will obtain a UA. Further orders forthcoming as hospitalization evolves, thank you for allowing us to participate in the care of Mr. David HPI Consult Data Date of Consult: 01/01/23 HPI Narrative HPI Narrative: ADINA DAVID, is a 67 M with past medical history significant for chronic lymphocytic leukemia, AVM, BPH, CKD stage III (followed by Dr. Gruber), sleep apnea, diverticulitis, iron deficiency anemia who is residing in TCU for therapy after recent hospitalization when patient was admitted on December 19 to [facility] for shortness of breath and sepsis. Nephrology consulted as patient has history of CKD. Patient also has a history of renal cell carcinoma status post right nephrectomy. Today patient denies any nausea, vomiting, diarrhea. Patient reports that he is diligent in maintaining good hydration by drinking water. He denies any NSAIDs. Reports good appetite. Patient reports he follows Dr. Gruber about every 3 months. PFSH Medical History (Updated 01/01/23 @ 13:05 by Kareen Koroma NP-C) Rhodes esophagus CLL (chronic lymphocytic leukemia) COPD (chronic obstructive pulmonary disease) Coronary artery disease DVT (deep venous thrombosis) Hypercoagulable state Obstructive sleep apnea Pulmonary embolism Pulmonary fibrosis Home Medications Lactobacillus acidophilus PO DAILY PRN PRN diarrhea 12/26/22 [History Last Taken Unknown] acetaminophen 325 mg capsule (Tylenol) 650 mg PO Q4H Pain 12/26/22 [History Last Taken Unknown] albuterol sulfate 90 mcg/actuation aerosol inhaler 1 inh inhalation Q6H PRN shortness of breath or wheezing 12/26/22 [History Last Taken Unknown] amlodipine 2.5 mg tablet 2.5 mg PO DAILY BP 12/26/22 [History Last Taken 12/26/22 09:30] arginine 7 gram-glutamine 7 gram-calcium HMB 1.5 gram oral powder pack (Andrew) ea PO BID Wound Healing 12/26/22 [History Last Taken 12/26/22 09:30] aspirin 81 mg tablet,delayed release (Adult Aspirin Regimen) 81 mg PO DAILY Heart Health 12/26/22 [History Last Taken 12/26/22 09:30] calcitriol 0.25 mcg capsule 0.25 mcg PO DAILY Supplement 12/26/22 [History Last Taken 12/26/22 09:30] cefdinir 300 mg capsule 300 mg PO BID Antibiotic 12/26/22 [History Last Taken Unknown] enoxaparin 40 mg/0.4 mL subcutaneous syringe (Lovenox) 40 mg subcut DAILY anticoagulant 12/26/22 [History Last Taken Unknown] fluticasone fur. 200 mcg-umeclid 62.5 mcg-vilant 25 mcg inhalat.powder (Trelegy Ellipta) 1 inh inhalation DAILY Allergies 12/26/22 [History Last Taken Unknown] guaifenesin 600 mg tablet, extended release 12 hr (Mucinex) 600 mg PO BID Mucus 12/26/22 [History Last Taken 12/26/22 09:30] hydrochlorothiazide 25 mg tablet 25 mg PO DAILY BP 12/26/22 [History Last Taken 12/26/22 09:30] hydroxyurea 500 mg capsule 1,000 mg PO DAILY Check with primary doctor 12/26/22 [History Last Taken Unknown] ipratropium 0.5 mg-albuterol 3 mg (2.5 mg base)/3 mL nebulization soln 3 ml inhalation Q4H PRN shortness of breath or wheezing 12/26/22 [History Last Taken Unknown] magnesium oxide 400 mg (241.3 mg magnesium) tablet 400 mg PO DAILY Supplement 12/26/22 [History Last Taken Unknown] metoprolol tartrate 100 mg tablet 100 mg PO BID BP 12/26/22 [History Last Taken 12/26/22 09:30] multivitamin with minerals 1 cap PO DAILY Supple 12/26/22 [History Last Taken 12/26/22 09:30] omeprazole 40 mg capsule,delayed release 40 mg PO DAILY GERD 12/26/22 [History Last Taken Unknown] prednisone 20 mg tablet mg PO DAILY Check with primary Doctor 12/26/22 [History Last Taken 12/26/22 09:30] sodium bicarbonate 650 mg tablet 650 mg PO DAILY GERD 12/26/22 [History Last Taken 12/26/22 09:30] valacyclovir 1 gram tablet 1,000 mg PO Q12H Check with primary Doctor 12/26/22 [History Last Taken Unknown] zolpidem 5 mg tablet 5 mg PO QHS PRN PRN sleep 12/26/22 [History Last Taken Unknown] Allergy/AdvReac Type Severity Reaction Status Date / Time doxycycline Allergy Unknown Unknown Verified 12/26/22 19:08 Penicillin Allergy Unknown Unknown Uncoded 12/26/22 19:08 Social History (Updated 12/26/22 @ 21:[address] Leighton Orozco MD) household members: none Smoking Status: Never smoker alcohol intake: never substance use type: does not use ROS ROS Narrative As in HPI and past medical history Physical Exam Narrative Alert and oriented x3, no apparent distress Lung sounds clear anteriorly and posteriorly. No wheezes rhonchi rales noted S1, S2, RRR Abdomen soft, nontender No edema to bilateral lower legs, feet or arms Lab / Micro Data 12/28/22 08:20 12/29/22 09:15 Labs: Laboratory Results - last 24 hr 01/01/23 05:17: Magnesium 1.4 L Micro: Microbiology 01/01/23 05:20 Nasal Secretion SARS-CoV-2 Antigen (Rapid) - Final
[2023-01-01 16:00] VITALS: BP 136/72; PULSE 87; RESP 16; TEMP 36.4; O2SAT 97
--- NOTE | 2023-01-01 16:23 | CASEMGMT ---
Social Work IDT met with patient and dtr for care plan meeting. Discussed patient's progress in PT/OT/SN. Educated to Medicare benefit. Therapy report pt is progressing well, and now adlib. Recommending transition to the community. SW offered to set DC date. Pt and dtr immediately upset with discussion of DC. Dtr lunged forward in chair toward this worker, stating he almost at my house two weeks ago; I don't think you understand ma'am!. Dtr continued, stating pt has been admitted for 6 days and she was anticipating a longer time for pt to regain strength and independence. Dtr explained pt's decline over the past 6-8 months, noting pt's the biggest decline was when he was staying with the dtr for 7 days prior to current admission. Dtr also shared dissatisfaction with care at [facility], noting pt was discharged to dtr's house without any services in place. Dtr explained pt was unable to participate in any of his ADL care at her house and concerned that pt has been fatigued and weak over the past months, and that he can be discharged from rehab in 6 days. SW acknowledged pt's and dtr's feelings and past history, however, reiterated pt's walking 300 ft, 18 steps, adlib for ADLs and ambulation, does not currently have fpc needs, thus no longer meets criteria for skilled stay under Medicare. SW educated to requiring 3 day DC notice, but offered 7 day DC notice for 01/08. Dtr viewed personal calendar and requested if the following Friday (01/10) would be an option as that works better for her schedule. SW agreed, reiterating IDT wanting success for DC and working around dtr's schedule, within reason. Dtr replied, well how much can I negotiate? I feel like I'm at a [employer] store. How about next Friday (01/17)? He's just not ready to go home. SW denied extending the DC date that much further, reiterating Medicare guidelines and confirmed setting the DC date for 01/10. Dtr and pt continued to repeat not feeling ready for pt to DC home and not agreeing with a short stay. Dtr stated she was told pt had 80 days of Medicare benefit and was expecting pt to be admitted for 2-3 months. SW educated to Medicare benefit of up to 100 days if pt continues to meet criteria, and currently, pt no longer meets criteria. Educated to average LOS of unit of about 14-18 days. Apologized for misinformation however, noted the Medicare benefit was explained to pt by this worker upon admission. Acknowledged receiving a lot of information at once and insurance information being complicated. SW educated to appeal rights and encouraged to file appeal if pt/dtr disagree with DC. Dtr interested in appealing. Dtr still voicing disbelief, stating pt cannot go home, and she is scared for him to go to her house, stating pt will need to go to a nursing facility instead. SW offered assistance with resources for SNFs or AL. Dtr agreed to lists. SW will obtain lists and return to provide them to dtr. Dtr appreciative. IDT exited room from POC meeting. -- SW returned to pt's room with printed listed of [facility] SNFs, per dtr request, with quality and resource data via [employer], along with [employer]. Dtr stopped this worker from entering room and requested she speak with this worker outside of pt's room and shut pt's door. SW agreed. Dtr reiterated disbelief of DC, continued to express concerns with pt's significant decline just prior to admission and difficulty understanding how after 6 days pt can be discharged. Dtr continued to express feelings, reiterating concerns from POC meeting. SW provided ongoing supportive listening, acknowledging dtr's feelings. SW attempted to provide verbal support and empathy to dtr for witnessing father's decline, but allowed time and space for dtr to express feelings and concerns. Dtr then began asking further questions about Medicare criteria and DC planning. SW acknowledged dtr's advocation for pt and validated concerns with pt's well-being living home alone. Dtr mentioned pt was not eating, taking medications or being active during the day. SW offered resources for assistance in those areas to support successful community living. Dtr requesting all the resources and help this worker can offer. SW acknowledged the DC process can be overwhelming and confusing, but continued to reiterate the role of this worker and the support/assistance this worker can provide to pt and dtr. SW apologized for being the spokesperson for Medicare guidelines, which can be conflicting with also providing assistance with DC planning, but continued to attempt to build rapport with dtr to allow SW assistance. After continued discussion, dtr agreeable to all resources offered by this worker and wanting to file Medicare appeal. SW agreed and will return with a folder of resources. However, when asked pt to sign [employer]OM[employer], pt adamantly and rudely refused. SW asked dtr, as POA, to sign NOMNC, dtr also refused, but stated she would accept the appeal information. SW provided copy of [employer]OM[employer] and noted appeal rights; encouraged to place appeal sooner than later. Dtr agreed. Dtr was taking pt outside and this worker agreed to provide folder of resources to pt's room as he returned. -- SW placed the following resources in the folder for pt/dtr: [place], nonskilled [employer], AL, SNF information, [facility], med dispenser, MOW. Dtr presented to worker's office with further questions. SW provided folder to dtr to review. Assisted in answering questions and explained in detail the differences between SNF and AL and the Medicare benefit applicable to each facility, i.e. potential to be skilled again in a SNF. Dtr inquiring about selling the pt's house and moving in with her, Medicaid eligibility and how that is applicable to a facility. SW provided detailed explanation of Medicaid. Offered to assist with application process. Dtr would like referral to [facility] for SNF and AL, stating pt has been on SNF waitlist. SW agreed to follow up. Dtr revisited dissatisfaction with past hospital systems, as [facility] did not complete therapy for the 10 days pt was admitted, then sent him home without anything. SW expressed concern with not having [facility] services or additional support. Dtr then corrected herself and stated [facility] did refer to HHC but dtr needed to call and follow up and did not receive a return phone call until dtr was taking him to the ED 7 days later. Dtr began getting overwhelmed and tearful, expressing difficulties navigating pt's health issues since mother two years ago, and balancing dtr's own work/life balance. SW provided emotional support, empathy and validated feelings. Dtr expressed pt and herself struggling with anxiety, explained pt just shuts down when things get hard, and wished pt would participate in therapy. Dtr stated she has benefited from therapy and knows her father would too. Dtr noted he had attempted to do telehealth visits from the [facility] prior but pt would get frustrated with using the cell phone. YUM[facility]KO offered mental health resources; dtr denied, but requested this worker or a colleague attempt to speak with pt and provide therapy while pt is admitted. SW educated to ongoing cognitive and mood assessments this worker completes throughout stay, and agreed to speak with pt as pt allows. Dtr also noted changes in pt's cognition and requested evaluation. SW educated to ST and offered to coordinate. Dtr expressed appreciation for this worker's time, support and assistance, despite frustration with discharge, and noted she and pt are very happy with the care on the unit received thus far. YUMIKO assured dtr this worker will continue to assist for a safe discharge plan. Acknowledged if pt has a change in condition between this date and DC date that meets Medicare criteria and can extend DC date. Dtr appreciative. YUMIKO sent referral to [facility] for SNF and AL via [facility]. -- [place] appeal filed. Janie Robb, ZHANG CHINCHILLA
--- NOTE | 2023-01-01 17:33 | NURSING ---
VM left for Dr Bluese [phone], pt wants to be consulted
--- NOTE | 2023-01-01 21:38 | DS.PCM_ITS ---
Providers Date of Admission: 12/26/22 Consultations 12/30/22 16:36 Consult: Nephrology Routine Consulting Provider: Phu Caraballo Reason for Consult: Chronic kidney disease EMERGENT Consult: No MD Notified: Yes Date Notified: 12/30/22 Time Notified: 16:36 Method of Notification: Verbal Reason For Visit: PNA, SOB, SEPSIS, RHINOVIRUS Diagnosis Discharge Diagnosis (1) CKD (chronic kidney disease), stage III: Status: Chronic Code(s): N18.30 - Chronic kidney disease, stage 3 unspecified (2) CLL (chronic lymphocytic leukemia): Status: Chronic Code(s): C91.10 - Chronic lymphocytic leukemia of B-cell type not having achieved remission Plan 67 year old male with below past medical history hospitalized for sepsis, strep pneumo pneumonia, strep pneumo bacteremia, rhinovirus, complicated by anemia requiring transfusion, orolabial herpes, admitted to TCU with debility, here for rehabilitation, strengthening, prior to discharge home with daughter. * Debility - PT/OT. * Pain - Tylenol 1000mg q6h prn pain (1-10). * Bowel - senna/colace 1 tablet bid prn, Magnesium citrate 300ml daily prn. * Adult immunization - Administer pneumonia vaccine, covid19 vaccine, flu vaccine as appropriate. * DVT prophylaxis - Lovenox 40mg sc daily. * COPD/Pulmonary fibrosis - Advair 1 puff Q12h, Incruse 1 puff daily, Duoneb 3ml q4h prn, Albuterol 1-2 puffs q6h prn, Prednisone 20mg daily. * Herpes labialis - Acyclovir 400mg tid x 7 days. * Hypertension - Metoprolol 100mg bid, Amlodipine 2.5mg daily, HCTZ 25mg daily. * Coronary artery disease - Metoprolol 100mg bid, Aspirin 81mg daily. * Hyperparathyroidism - Calcitriol 0.25mg daily. * Sepsis/S. Pneumo pneumonia/bacteremia - Cefdinir 300mg bid thru 01/09/2023. * Congestion - Mucinex 600mg bid. * CLL - Hydrea 1000mg daily. * Nutrition - Andrew 1 packet bid, MVI daily. * GI prophylaxis - Lactobacillus 1 daily prn. * Hypomagnesemia - Magnesium chloride 128mg daily. * GERD - Pantoprazole 40mg daily. * Metabolic acidosis - Sodium bicarb 650mg daily. 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 Medications at Discharge Home Medications Lactobacillus acidophilus PO DAILY PRN PRN diarrhea 12/26/22 acetaminophen 325 mg capsule (Tylenol) 650 mg PO Q4H Pain 12/26/22 albuterol sulfate 90 mcg/actuation aerosol inhaler 1 inh inhalation Q6H PRN shortness of breath or wheezing 12/26/22 amlodipine 2.5 mg tablet 2.5 mg PO DAILY BP 12/26/22 arginine 7 gram-glutamine 7 gram-calcium HMB 1.5 gram oral powder pack (Andrew) ea PO BID Wound Healing 12/26/22 aspirin 81 mg tablet,delayed release (Adult Aspirin Regimen) 81 mg PO DAILY Heart Health 12/26/22 calcitriol 0.25 mcg capsule 0.25 mcg PO DAILY Supplement 12/26/22 cefdinir 300 mg capsule 300 mg PO BID Antibiotic 12/26/22 enoxaparin 40 mg/0.4 mL subcutaneous syringe (Lovenox) 40 mg subcut DAILY anticoagulant 12/26/22 fluticasone fur. 200 mcg-umeclid 62.5 mcg-vilant 25 mcg inhalat.powder (Trelegy Ellipta) 1 inh inhalation DAILY Allergies 12/26/22 guaifenesin 600 mg tablet, extended release 12 hr (Mucinex) 600 mg PO BID Mucus 12/26/22 hydrochlorothiazide 25 mg tablet 25 mg PO DAILY BP 12/26/22 hydroxyurea 500 mg capsule 1,000 mg PO DAILY Check with primary doctor 12/26/22 ipratropium 0.5 mg-albuterol 3 mg (2.5 mg base)/3 mL nebulization soln 3 ml inhalation Q4H PRN shortness of breath or wheezing 12/26/22 magnesium oxide 400 mg (241.3 mg magnesium) tablet 400 mg PO DAILY Supplement 12/26/22 metoprolol tartrate 100 mg tablet 100 mg PO BID BP 12/26/22 multivitamin with minerals 1 cap PO DAILY Supple 12/26/22 omeprazole 40 mg capsule,delayed release 40 mg PO DAILY GERD 12/26/22 prednisone 20 mg tablet mg PO DAILY Check with primary Doctor 12/26/22 sodium bicarbonate 650 mg tablet 650 mg PO DAILY GERD 12/26/22 valacyclovir 1 gram tablet 1,000 mg PO Q12H Check with primary Doctor 12/26/22 zolpidem 5 mg tablet 5 mg PO QHS PRN PRN sleep 12/26/22 prednisone 10 mg tablet 10 mg PO DAILYCM #0 tabs 01/01/23 Hospital Course Operations None Procedures None Summary of Care Provided Minutes Spent on Discharge: 35 Hospital Course: 67 year old male with below past medical history hospitalized for sepsis, strep pneumo pneumonia, strep pneumo bacteremia, rhinovirus, complicated by anemia requiring transfusion, orolabial herpes, admitted to TCU with debility, here for rehabilitation, strengthening, prior to discharge home with daughter. Discharge home with daughter 01/10/2023, [facility] PT/OT. Physical Exam Const alert General Appearance: cooperative HEENT normocephalic Eyes PERRL and EOMs intact bilaterally Neck supple, no JVD and no carotid bruits Resp normal respiratory effort, normal air movement and clear to auscultation bilaterally Cardio regular rate and regular rhythm GI normal to inspection, nondistended, normoactive bowel sounds, non-tender and non-distended Extremity normal capillary refill General Extremity: Negative for edema Skin no rashes or lesions noted General Skin Exam: no breakdown Psych affect normal Appearance: appropriate Weight / BMI Weight Weight: 82.1 kg Body Mass Index (BMI) 27.5 ABG / Lab / Microbiology Data 12/28/22 08:20 12/29/22 09:15 Laboratory: Laboratory Results - last 24 hr 01/01/23 05:17: Magnesium 1.4 L Microbiology: Microbiology 01/01/23 05:20 Nasal Secretion SARS-CoV-2 Antigen (Rapid) - Final 12/29/22 08:00 Nasal Secretion SARS-CoV-2 Antigen (Rapid) - Final 12/27/22 05:50 Nasal Secretion SARS-CoV-2 Antigen (Rapid) - Final D/C Instructions Discharge Diet: No restrictions Discharge Activity: Return to Normal Activity, May Shower and Use Walker Weight Bearing Status: Weight bearing as tolerated Call your doctor if you observe: Fever of 101 or Higher, Inability to urinate, Inability to have a bowel movement, Shortness of breath, Dizziness, Fainting spells, Swelling in the ankles, Chest pain and Uncontrolled pain Additional Instructions: Discharge home with daughter 01/10/2023, [facility] PT/OT. Meaningful Use Info Meaningful Use Diagnoses (Choose all that apply): None applicable Discharge Plan Admission Admit Date/Time: 12/26/22 17:45 Primary Reason for Your Visit: Debility. Attending Provider: Leighton Orozco Chi Consulting Providers: Phu Caraballo Instructions Additional Instructions / Restrictions: Discharge home with daughter 01/10/2023, [facility] PT/OT. Discharge Orders/Prescriptions Prescriptions: New prednisone 10 mg Tablet 10 mg PO DAILYCM Qty: 0 0RF Continued hydrochlorothiazide 25 mg tablet 25 mg PO DAILY metoprolol tartrate 100 mg tablet 100 mg PO BID aspirin [Adult Aspirin Regimen] 81 mg tablet,delayed release (DR/EC) 81 mg PO DAILY calcitriol 0.25 mcg capsule 0.25 mcg PO DAILY Patient Comments: TAKE 1 CAPSULE BY MOUTH ONCE DAILY FOR 90 DAYS Trelegy Ellipta 200-62.5-25 mcg blister with device 1 inh INHALATION DAILY Patient Comments: INHALE 1 PUFF BY MOUTH ONCE DAILY FOR 30 DAYS hydroxyurea 500 mg capsule 1,000 mg PO DAILY Patient Comments: TAKE 2 CAPSULES BY MOUTH ONCE DAILY magnesium oxide 400 mg (241.3 mg magnesium) tablet 400 mg PO DAILY Patient Comments: TAKE 1/2 (ONE-HALF) TABLET BY MOUTH ONCE DAILY omeprazole 40 mg capsule,delayed release(DR/EC) 40 mg PO DAILY Patient Comments: TAKE 1 CAPSULE BY MOUTH ONCE DAILY zolpidem 5 mg tablet 5 mg PO QHS PRN PRN (Reason: sleep) No Action acetaminophen [Tylenol] 325 mg capsule 650 mg PO Q4H amlodipine 2.5 mg tablet 2.5 mg PO DAILY guaifenesin [Mucinex] 600 mg tablet extended release 12hr 600 mg PO BID ipratropium-albuterol 0.5 mg-3 mg(2.5 mg base)/3 mL solution for nebulization 3 ml inhalation Q4H PRN (Reason: shortness of breath or wheezing) Andrew 7-7-1.5 gram powder in packet PO BID multivitamin with minerals Capsule 1 cap PO DAILY prednisone 20 mg tablet PO DAILY Patient Comments: TAKE 1 TABLET BY MOUTH TWICE DAILY Lactobacillus acidophilus PO DAILY PRN PRN (Reason: diarrhea) sodium bicarbonate 650 mg tablet 650 mg PO DAILY albuterol sulfate 90 mcg/actuation HFA aerosol inhaler 1 inh INHALATION Q6H PRN (Reason: shortness of breath or wheezing) cefdinir 300 mg capsule 300 mg PO BID enoxaparin [Lovenox] 40 mg/0.4 mL syringe 40 mg subcut DAILY valacyclovir 1 gram tablet 1,000 mg PO Q12H Patient Comments: TAKE 1 TABLET BY MOUTH TWICE DAILY FOR 2 DAYS NEEDED FOR COLD SORES Disposition Disposition (needs filled in before D/C Order can be placed): Home, Self Care
[2023-01-01] MEDS: Zolpidem Tartrate 5 MG Tablet 10 MG PO (22:22)
[2023-01-01 22:23] VITALS: BP 124/67; PULSE 84
[2023-01-01] MEDS: Menthol/Lanolin/Calamine/Znox 113 GM Tube 1 APPLIC TOPICAL (22:23)
[2023-01-01 22:30] VITALS: O2SAT 97
[2023-01-02] MEDS: Acyclovir 200 MG Capsule 400 MG PO ×3 (08:06→17:56)
[2023-01-02] MEDS: predniSONE 10 MG Tablet PO (08:07)
[2023-01-02] MEDS: Umeclidinium Bromide Inhaler 1 PUFF INHALATION (10:21)
[2023-01-02] MEDS: Fluticasone/Salmeterol 232-14 Inhaler 1 PUFF INHALATION ×2 (10:21→21:45)
[2023-01-02] MEDS: Acetaminophen 500 MG Tablet 1000 MG PO (10:21)
[2023-01-02] MEDS: Hydroxyurea 500 MG Capsule 1000 MG PO (10:23)
[2023-01-02] MEDS: Aspirin E.C. 81 MG Tablet PO (10:23)
[2023-01-02] MEDS: Calcitriol 0.25 MCG Capsule PO (10:23)
[2023-01-02] MEDS: Magnesium Chloride 64 MG Delay Rel.Tablet 128 MG PO (10:23)
[2023-01-02] MEDS: Cefdinir 300 MG Capsule PO ×2 (10:24→21:45)
[2023-01-02] MEDS: hydroCHLOROthiazide 25 MG Tablet PO (10:24)
[2023-01-02] MEDS: Pantoprazole Sodium 40 MG Tablet PO (10:24)
[2023-01-02 10:30] VITALS: PULSE 107
[2023-01-02] MEDS: Metoprolol Tartrate 100 MG Tablet PO ×2 (10:30→21:45)
[2023-01-02 10:34] VITALS: PULSE 106; RESP 16; O2SAT 93
--- NOTE | 2023-01-02 11:23 | CASEMGMT ---
Addendum entered by Janie Robb 01/02/23 13:12: Maria Ines phoned this worker stating the initial referral was from [facility] on 12/23, but pt did not admit, and family did not complete an application to be placed on a waitlist. Maria Ines is reviewing the referral but currently there is no bed availability. Original Note: Social Work SW spoke with Maria Ines at [facility] for waitlist update. Maria Ines is not showing pt on her waitlist for either SNF or AL. YUM[facility]KO [facility]. Will continue to follow. Janie Robb. ARMATURE BALANCER CREDIT ADMINISTRATION MANAGER
[2023-01-02 14:57] VITALS: BP 142/75; PULSE 81; RESP 18; TEMP 36.3; O2SAT 95
[2023-01-02 21:45] VITALS: PULSE 79
[2023-01-02] MEDS: Zolpidem Tartrate 5 MG Tablet 10 MG PO (21:45)
[2023-01-02] MEDS: Menthol/Lanolin/Calamine/Znox 113 GM Tube 1 APPLIC TOPICAL (21:49)
[2023-01-03 05:50] LABS: Absolute Lymphocyte Count 42.69 X10^3/uL (0.83-4.51); Absolute Neutrophil Count 4.1 X10^3/uL (2.0-7.7); Basophil# 0.04 X10^3/uL; Basophil% 0.1 % (0-1); Eosinophil# 0.01 X10^3/uL; Hematocrit 31.1 % (40-54); Hemoglobin 9.1 g/dL (13.0-16.5); Lymphocyte # 42.69 X10^3/ul (0.83-4.51); Lymphocyte % 80.4 % (19-41); Mean Corp Hgb Conc 29.3 g/dL (32-36); Mean Corpuscular Hgb 33.6 pg (27.0-32.0); Mean Corpuscular Volume 114.8 fL (80-94); Mean Platelet Vol. 8.8 fl (6.2-12.0); Monocyte# 6.01 X10^3/uL; Monocyte% 11.3 % (0-10); NRBC Flagged by Analyzer 0 % (0-5); Neutrophil # 4.13 X10^3/uL (2.7-7.7); Neutrophil % 7.8 % (47-70); POSITIVE COUNT YES; POSITIVE DIFFERENTIAL YES; POSITIVE MORPHOLOGY YES; Platelet Count 456 K/mm3 (150-450); RBC Distribution Width CV 21.6 % (11.6-14.6); RBC Distribution Width SD 90.7 fl (35.1-43.9); Red Blood Count 2.71 M/mm3 (4.6-6.2); White Blood Count 53.1 K/mm3 (4.4-11.0)
[2023-01-03 05:59] LABS: Differential Indicated SCAN CRITERIA MET
[2023-01-03 06:35] LABS: Anisocytosis 2+; Macrocytosis 2+
[2023-01-03 06:36] LABS: Platelet Estimate SLT INC (ADEQ)
[2023-01-03 06:38] LABS: Anion Gap 5 (5-15); BUN 35 mg/dL (7-18); BUN/Creat Ratio 20.6 RATIO (10-20); Calcium,Total 9.3 mg/dL (8.5-10.1); Chloride 110 mmol/L (98-107); EST Glomerular Filtration Rate 43 mL/min (>60); Est Glom Filt Rate - Afr Amer 52 mL/min (>60); Estimated Creatinine Clearance 39.68 ml/min; Glucose 88 mg/dL (74-106); Potassium 3.7 mmol/L (3.5-5.1); Sodium Level 141 mmol/L (136-145)
--- NOTE | 2023-01-03 09:39 | NURSING ---
Propeller Tester Note; MDS for 01/02/2023 Complete
[2023-01-03] MEDS: Acyclovir 200 MG Capsule 400 MG PO ×2 (10:24→17:51)
[2023-01-03] MEDS: hydroCHLOROthiazide 25 MG Tablet PO (10:25)
[2023-01-03] MEDS: predniSONE 10 MG Tablet PO (10:25)
[2023-01-03] MEDS: Hydroxyurea 500 MG Capsule 1000 MG PO (10:25)
[2023-01-03] MEDS: Magnesium Chloride 64 MG Delay Rel.Tablet 128 MG PO (10:25)
[2023-01-03] MEDS: Aspirin E.C. 81 MG Tablet PO (10:25)
[2023-01-03 10:26] VITALS: PULSE 99
[2023-01-03] MEDS: Cefdinir 300 MG Capsule PO ×2 (10:26→21:44)
[2023-01-03] MEDS: Pantoprazole Sodium 40 MG Tablet PO (10:26)
[2023-01-03] MEDS: Metoprolol Tartrate 100 MG Tablet PO ×2 (10:26→21:44)
[2023-01-03] MEDS: Calcitriol 0.25 MCG Capsule PO (10:26)
[2023-01-03] MEDS: Menthol/Lanolin/Calamine/Znox 113 GM Tube 1 APPLIC TOPICAL ×2 (10:27→21:48)
[2023-01-03] MEDS: Fluticasone/Salmeterol 232-14 Inhaler 1 PUFF INHALATION ×2 (10:27→21:44)
[2023-01-03] MEDS: Umeclidinium Bromide Inhaler 1 PUFF INHALATION (10:27)
--- NOTE | 2023-01-03 11:20 | NURSING ---
am meds just now given d/t staffing. pt asking to take shower and to get weighed. pt wanting to take own valtrex d/t acolclovir not working.
[2023-01-03] MEDS: Acetaminophen 500 MG Tablet 1000 MG PO (12:30)
[2023-01-03] MEDS: Tuberculin,Purif.prot.deriv. 50 TU/ML Vial 0.1 ML ID (12:32)
[2023-01-03 15:51] VITALS: BP 148/69; PULSE 82; RESP 18; O2SAT 97
--- NOTE | 2023-01-03 17:25 | CASEMGMT ---
Social Work BIMS () and PHQ-9 (02/07) completed for MDS assessment. SW explored pt's responses and provided ongoing active listening. Although pt notes he is down, depressed and hopeless, he explained his motivation for improvement with therapy, and having positive self-talk. Pt enjoyed his visit with Biological Engineer, and overall expressed gratitude for [facility] [place] staff, stating 98% of the people are great, I love the food, this is the best hospital I've been in and the best hospital room I've had. This is a great place. Pt shared stories of disappointment with [facility] and past doctors/surgeons he's had, but spoke highly of Dr. Orozco. Pt also began sharing stories of his family and father. SW continue to provide supportive listening. At the end of the conversation, SW notified pt of him losing his appeal. Offered him fax from [employer] with determination explanation. Pt requested this worker read it aloud to him. SW read paragraph of explanation to pt, however, after each sentence of explanation, pt interrupted to refute it. SW paused and allowed time for pt to express his opinions. Once completed, pt asked if this worker could phone his dtr to update. SW agreed. SW phoned dtr to update on appeal outcome, notify of copy of determination in pt's room, and updated pt on conversation with [facility]. Offered assistance with DC planning- home vs SNF. Dtr still unsure which route at DC but aware of services at each location. Dtr to speak with pt and phone this worker Friday with an outcome. SW agreed. Will continue to follow. ZHANG Sheridan
[2023-01-03 21:44] VITALS: BP 141/76; PULSE 88
[2023-01-03] MEDS: Zolpidem Tartrate 5 MG Tablet 10 MG PO (21:44)
[2023-01-04] MEDS: Fluticasone/Salmeterol 232-14 Inhaler 1 PUFF INHALATION ×2 (08:45→22:06)
[2023-01-04] MEDS: Acyclovir 200 MG Capsule 400 MG PO ×3 (08:48→17:43)
[2023-01-04] MEDS: Magnesium Chloride 64 MG Delay Rel.Tablet 128 MG PO (08:48)
[2023-01-04] MEDS: Aspirin E.C. 81 MG Tablet PO (08:49)
[2023-01-04] MEDS: hydroCHLOROthiazide 25 MG Tablet PO (08:50)
[2023-01-04] MEDS: Hydroxyurea 500 MG Capsule 1000 MG PO (08:50)
[2023-01-04 08:51] VITALS: BP 141/76; PULSE 93
[2023-01-04] MEDS: Metoprolol Tartrate 100 MG Tablet PO ×2 (08:51→22:07)
[2023-01-04] MEDS: Cefdinir 300 MG Capsule PO ×2 (08:54→22:08)
[2023-01-04] MEDS: predniSONE 10 MG Tablet PO (08:54)
[2023-01-04] MEDS: Calcitriol 0.25 MCG Capsule PO (08:55)
[2023-01-04] MEDS: Pantoprazole Sodium 40 MG Tablet PO (08:55)
[2023-01-04 10:00] VITALS: PULSE 98; RESP 16
[2023-01-04 14:56] VITALS: BP 123/73; PULSE 83; RESP 16; TEMP 36.3; O2SAT 98
[2023-01-04] MEDS: Zolpidem Tartrate 5 MG Tablet 10 MG PO (22:06)
[2023-01-04 22:07] VITALS: BP 109/71; PULSE 90
[2023-01-04] MEDS: Menthol/Lanolin/Calamine/Znox 113 GM Tube 1 APPLIC TOPICAL (22:11)
--- NOTE | 2023-01-04 22:15 | NURSING ---
Pt belligerent when this nurse is administering HS meds. Informs this nurse he does not wish to be woke up by anyone until 0730. Will attempt to inform lab personnel as pt is scheduled to have BMP drawn in the am.
--- NOTE | 2023-01-05 06:56 | NURSING ---
Lab notified on unit pt does not want to be woke until after 0730 to have labs drawn.
[2023-01-05 08:58] LABS: Anion Gap 9 (5-15); BUN 36 mg/dL (7-18); BUN/Creat Ratio 21.6 RATIO (10-20); Calcium,Total 9.1 mg/dL (8.5-10.1); Chloride 108 mmol/L (98-107); Creatinine, Serum 1.67 mg/dL (0.70-1.30); EST Glomerular Filtration Rate 44 mL/min (>60); Est Glom Filt Rate - Afr Amer 53 mL/min (>60); Estimated Creatinine Clearance 40.39 ml/min; Glucose 93 mg/dL (74-106); Potassium 4.5 mmol/L (3.5-5.1); Sodium Level 142 mmol/L (136-145)
[2023-01-05] MEDS: predniSONE 10 MG Tablet PO (08:59)
[2023-01-05] MEDS: hydroCHLOROthiazide 25 MG Tablet PO (08:59)
[2023-01-05] MEDS: Acyclovir 200 MG Capsule 400 MG PO ×3 (08:59→16:44)
[2023-01-05] MEDS: Aspirin E.C. 81 MG Tablet PO (08:59)
[2023-01-05] MEDS: Pantoprazole Sodium 40 MG Tablet PO (09:00)
[2023-01-05] MEDS: Magnesium Chloride 64 MG Delay Rel.Tablet 128 MG PO (09:00)
[2023-01-05] MEDS: Calcitriol 0.25 MCG Capsule PO (09:00)
[2023-01-05] MEDS: Cefdinir 300 MG Capsule PO ×2 (09:01→21:02)
[2023-01-05] MEDS: Hydroxyurea 500 MG Capsule 1000 MG PO (09:01)
[2023-01-05] MEDS: Fluticasone/Salmeterol 232-14 Inhaler 1 PUFF INHALATION ×2 (09:02→21:02)
[2023-01-05] MEDS: Menthol/Lanolin/Calamine/Znox 113 GM Tube 1 APPLIC TOPICAL ×2 (09:02→09:03)
[2023-01-05 09:08] VITALS: BP 138/78; PULSE 93
[2023-01-05] MEDS: Metoprolol Tartrate 100 MG Tablet PO ×2 (09:08→21:02)
[2023-01-05 10:00] VITALS: PULSE 98; RESP 18; O2SAT 96
[2023-01-05] MEDS: Umeclidinium Bromide Inhaler 1 PUFF INHALATION (11:14)
[2023-01-05 15:36] VITALS: BP 128/64; PULSE 78; RESP 14; TEMP 36.7; O2SAT 94
[2023-01-05 21:02] VITALS: BP 141/80; PULSE 98
[2023-01-05] MEDS: Zolpidem Tartrate 5 MG Tablet 10 MG PO (21:05)
[2023-01-06 08:40] LABS: Pathologist Review Reviewed
[2023-01-06] MEDS: Acyclovir 200 MG Capsule 400 MG PO ×3 (09:09→16:49)
[2023-01-06] MEDS: Aspirin E.C. 81 MG Tablet PO (09:10)
[2023-01-06] MEDS: predniSONE 10 MG Tablet PO (09:10)
[2023-01-06 09:11] VITALS: BP 151/72; PULSE 107
[2023-01-06] MEDS: hydroCHLOROthiazide 25 MG Tablet PO (09:11)
[2023-01-06] MEDS: Metoprolol Tartrate 100 MG Tablet PO ×2 (09:11→21:49)
[2023-01-06] MEDS: Hydroxyurea 500 MG Capsule 1000 MG PO (09:11)
[2023-01-06] MEDS: Cefdinir 300 MG Capsule PO ×2 (09:12→21:47)
[2023-01-06] MEDS: Pantoprazole Sodium 40 MG Tablet PO (09:12)
[2023-01-06] MEDS: Magnesium Chloride 64 MG Delay Rel.Tablet 128 MG PO (09:12)
[2023-01-06] MEDS: Calcitriol 0.25 MCG Capsule PO (09:13)
[2023-01-06] MEDS: Umeclidinium Bromide Inhaler 1 PUFF INHALATION (09:15)
[2023-01-06] MEDS: Fluticasone/Salmeterol 232-14 Inhaler 1 PUFF INHALATION (09:16)
[2023-01-06] MEDS: Menthol/Lanolin/Calamine/Znox 113 GM Tube 1 APPLIC TOPICAL ×2 (09:19→21:46)
[2023-01-06 09:24] VITALS: BP 151/72; PULSE 107
--- NOTE | 2023-01-06 10:55 | NURSING ---
APPOINTMENT MADE WITH ON D/C DATE 01/10/23 AT 11 AM. DAUGHTER NOTIFIED AND ASKED TO BE ON SPEAKER PHONE AT APPOINTMENT. CALL MADE AGAIN TO OFFICE TO SCHEDULE APPOINTMENT FOR PT AND LEFT MESSAGE. DAUGHTER ASKED IF POSSIBLE TO SCHEDULE ON A FRIDAY AFTERNOON. RN AWARE.
--- NOTE | 2023-01-06 11:25 | CASEMGMT ---
Social Work Received call from dtr with DC plans. Dtr states pt will DC to dtr's home 01/10 and will return to his home independently 01/12. Dtr requesting [facility] PT/OT/SN with SOC 01/12 or 01/13, no DME, dtr to set up [employer] Meals, and would like a referral to a counselor. SW agreed to coordinate all needs. Offered HHC list and counseling list, but dtr requested this worker select agencies. SW agreed and will update dtr once all services are confirmed. Dtr appreciative. YUMIKO sent referral to [facility] via [employer] for PT/OT/SN/SW. SW phoned referral to [facility] - left voicemail requesting return call. Plan: DC home alone 01/10, [facility] PT/OT/SN/ZHANG Mancilla
--- NOTE | 2023-01-06 11:36 | NURSING ---
OFFICE CALLED BACK AND APPOINTMENT WAS SET UP. PT AND DAUGHTER NOTIFIED. FEB.06 @ 2;45.
[2023-01-06 13:20] VITALS: PULSE 95; RESP 18; O2SAT 98
[2023-01-06 16:00] VITALS: BP 146/70; PULSE 89; RESP 16; TEMP 36.7; O2SAT 95
--- NOTE | 2023-01-06 16:43 | CHAPLAIN ---
Type of Pastoral Visit ___ Initial Visit _x__ Follow-up Visit ___ On-call Visit ___ General Patient Visit ___ Spiritual Assessment ___ Family Conference ___ Bereavement ___ Rapid Response ___ Code Blue ___ Other (describe below) Pastoral Care Referral From _x__ Patient ___ Family ___ Nurse ___ Physician ___ Stove Installer ___ Epoxy Coatings Installer ___ Other (describe below) Sacrament/Intervention _x__ Active listening ___ Anointing ___ Mandaeism ___ Bereavement ___ Communion _x__ Ashlyn exploration ___ _x__ Life review _x__ Prayer ___ Reconciliation ___ Sacrament of Sick _x__ Supportive presence ___ Wedding ___ Other (describe below) Pastoral Comments patient stops shaving so he can talk to this supervisor mold yard; pt is welcoming and expresses gratitude that he doesn't have to wait to talk to the supervisor mold yard like I have to wait for the psychiatrist; pt gives much life review and speaks of his own issues with loss of loved ones, even while recognizing the good times and the blessings; pt considers his spiritual life and refers to his more recent discovery of ashlyn through TV preachers; pt has very supportive daughter and expects great help from her as she is able; pt is expressive of thanks for the time and listening given to him through this supervisor mold yard; pt desires a prayer and it is given
[2023-01-06] MEDS: Zolpidem Tartrate 5 MG Tablet 10 MG PO (21:46)
[2023-01-06 21:49] VITALS: BP 139/81; PULSE 89
[2023-01-07] MEDS: Acyclovir 200 MG Capsule 400 MG PO ×3 (08:50→17:52)
[2023-01-07] MEDS: Aspirin E.C. 81 MG Tablet PO (08:51)
[2023-01-07] MEDS: predniSONE 10 MG Tablet PO (08:51)
[2023-01-07] MEDS: hydroCHLOROthiazide 25 MG Tablet PO (08:51)
[2023-01-07] MEDS: Hydroxyurea 500 MG Capsule 1000 MG PO (08:52)
[2023-01-07] MEDS: Magnesium Chloride 64 MG Delay Rel.Tablet 128 MG PO (08:52)
[2023-01-07] MEDS: Pantoprazole Sodium 40 MG Tablet PO (08:53)
[2023-01-07] MEDS: Cefdinir 300 MG Capsule PO ×2 (08:53→21:47)
[2023-01-07] MEDS: Umeclidinium Bromide Inhaler 1 PUFF INHALATION (08:53)
[2023-01-07] MEDS: Calcitriol 0.25 MCG Capsule PO (08:53)
[2023-01-07] MEDS: Fluticasone/Salmeterol 232-14 Inhaler 1 PUFF INHALATION ×2 (08:54→21:47)
[2023-01-07 08:56] VITALS: BP 118/68; PULSE 101
[2023-01-07] MEDS: Metoprolol Tartrate 100 MG Tablet PO ×2 (08:56→21:48)
[2023-01-07] MEDS: Menthol/Lanolin/Calamine/Znox 113 GM Tube 1 APPLIC TOPICAL ×2 (08:58→21:48)
[2023-01-07 09:02] VITALS: BP 118/68; PULSE 101
--- NOTE | 2023-01-07 09:03 | MDS.RN ---
Information for the mds was obtained from review of the clinical record, interview of resident, staff, and direct observation of resident's care.
[2023-01-07 10:44] VITALS: BMI 26.8
[2023-01-07 10:50] VITALS: PULSE 91; RESP 18; O2SAT 97
[2023-01-07 13:32] VITALS: BP 130/66; PULSE 83; RESP 16; TEMP 36.2; O2SAT 97
[2023-01-07] MEDS: Zolpidem Tartrate 5 MG Tablet 10 MG PO (21:46)
[2023-01-07 21:48] VITALS: BP 126/65; PULSE 90
[2023-01-08] MEDS: Aspirin E.C. 81 MG Tablet PO (08:57)
[2023-01-08] MEDS: predniSONE 10 MG Tablet PO (08:57)
[2023-01-08] MEDS: Hydroxyurea 500 MG Capsule 1000 MG PO (08:57)
[2023-01-08] MEDS: hydroCHLOROthiazide 25 MG Tablet PO (08:57)
[2023-01-08] MEDS: Calcitriol 0.25 MCG Capsule PO (08:57)
[2023-01-08] MEDS: Magnesium Chloride 64 MG Delay Rel.Tablet 128 MG PO (08:57)
[2023-01-08] MEDS: Pantoprazole Sodium 40 MG Tablet PO (08:57)
[2023-01-08 08:58] VITALS: PULSE 67
[2023-01-08] MEDS: Acyclovir 200 MG Capsule 400 MG PO ×3 (08:58→17:39)
[2023-01-08] MEDS: Metoprolol Tartrate 100 MG Tablet PO ×2 (08:58→22:00)
[2023-01-08] MEDS: Cefdinir 300 MG Capsule PO ×2 (08:58→22:00)
[2023-01-08] MEDS: Menthol/Lanolin/Calamine/Znox 113 GM Tube 1 APPLIC TOPICAL ×2 (09:00→22:04)
[2023-01-08] MEDS: Fluticasone/Salmeterol 232-14 Inhaler 1 PUFF INHALATION (09:01)
[2023-01-08] MEDS: Umeclidinium Bromide Inhaler 1 PUFF INHALATION (09:01)
[2023-01-08 14:51] VITALS: BP 149/81; PULSE 92; RESP 16; TEMP 36.3; O2SAT 97
[2023-01-08 22:00] VITALS: BP 119/58; PULSE 82
[2023-01-08] MEDS: Zolpidem Tartrate 5 MG Tablet 10 MG PO (22:00)
[2023-01-09] MEDS: Acyclovir 200 MG Capsule 400 MG PO ×3 (08:48→17:58)
[2023-01-09] MEDS: Aspirin E.C. 81 MG Tablet PO (08:49)
[2023-01-09] MEDS: predniSONE 10 MG Tablet PO (08:49)
[2023-01-09] MEDS: Pantoprazole Sodium 40 MG Tablet PO (08:49)
[2023-01-09] MEDS: hydroCHLOROthiazide 25 MG Tablet PO (08:50)
[2023-01-09] MEDS: Magnesium Chloride 64 MG Delay Rel.Tablet 128 MG PO (08:51)
[2023-01-09] MEDS: Hydroxyurea 500 MG Capsule 1000 MG PO (08:51)
[2023-01-09] MEDS: Calcitriol 0.25 MCG Capsule PO (08:52)
[2023-01-09] MEDS: Fluticasone/Salmeterol 232-14 Inhaler 1 PUFF INHALATION ×2 (08:53→21:02)
[2023-01-09] MEDS: Umeclidinium Bromide Inhaler 1 PUFF INHALATION (08:53)
[2023-01-09 09:02] VITALS: BP 158/70; PULSE 80
[2023-01-09] MEDS: Metoprolol Tartrate 100 MG Tablet PO ×2 (09:02→21:02)
[2023-01-09 16:00] VITALS: BP 136/73; PULSE 87; RESP 14; TEMP 36.2; O2SAT 95
[2023-01-09 21:02] VITALS: PULSE 82
[2023-01-09] MEDS: Zolpidem Tartrate 5 MG Tablet 10 MG PO (21:06)
[2023-01-09 22:23] VITALS: RESP 18
[2023-01-10] MEDS: predniSONE 10 MG Tablet PO (08:24)
[2023-01-10] MEDS: Aspirin E.C. 81 MG Tablet PO (08:24)
[2023-01-10] MEDS: hydroCHLOROthiazide 25 MG Tablet PO (08:24)
[2023-01-10] MEDS: Acyclovir 200 MG Capsule 400 MG PO (08:24)
[2023-01-10 08:25] VITALS: BP 136/73; PULSE 84
[2023-01-10] MEDS: Metoprolol Tartrate 100 MG Tablet PO (08:25)
[2023-01-10] MEDS: Hydroxyurea 500 MG Capsule 1000 MG PO (08:25)
[2023-01-10] MEDS: Magnesium Chloride 64 MG Delay Rel.Tablet 128 MG PO (08:25)
[2023-01-10] MEDS: Pantoprazole Sodium 40 MG Tablet PO (08:25)
[2023-01-10] MEDS: Calcitriol 0.25 MCG Capsule PO (08:26)
[2023-01-10] MEDS: Umeclidinium Bromide Inhaler 1 PUFF INHALATION (08:28)
[2023-01-10] MEDS: Fluticasone/Salmeterol 232-14 Inhaler 1 PUFF INHALATION (08:29)
[2023-01-10 08:32] VITALS: BP 136/73; PULSE 84
[2023-01-10 09:23] LABS: Absolute Lymphocyte Count 44.25 X10^3/uL (0.83-4.51); Absolute Neutrophil Count 4.3 X10^3/uL (2.0-7.7); Basophil# 0.07 X10^3/uL; Basophil% 0.1 % (0-1); Eosinophil# 0.06 X10^3/uL; Eosinophils% 0.1 % (0-5); Hematocrit 34.1 % (40-54); Hemoglobin 10.5 g/dL (13.0-16.5); Lymphocyte # 44.25 X10^3/ul (0.83-4.51); Lymphocyte % 81.9 % (19-41); Mean Corp Hgb Conc 30.8 g/dL (32-36); Mean Corpuscular Hgb 35.6 pg (27.0-32.0); Mean Corpuscular Volume 115.6 fL (80-94); Mean Platelet Vol. 8.8 fl (6.2-12.0); Monocyte# 5.17 X10^3/uL; Monocyte% 9.6 % (0-10); NRBC Flagged by Analyzer 0 % (0-5); Neutrophil # 4.26 X10^3/uL (2.7-7.7); Neutrophil % 7.9 % (47-70); POSITIVE COUNT YES; POSITIVE DIFFERENTIAL YES; POSITIVE MORPHOLOGY YES; Platelet Count 430 K/mm3 (150-450); RBC Distribution Width CV 23.3 % (11.6-14.6); RBC Distribution Width SD 98.1 fl (35.1-43.9); Red Blood Count 2.95 M/mm3 (4.6-6.2)
[2023-01-10 09:29] LABS: Differential Indicated SCAN CRITERIA MET
[2023-01-10 10:02] LABS: Anion Gap 7 (5-15); BUN 42 mg/dL (7-18); BUN/Creat Ratio 22.5 RATIO (10-20); Chloride 110 mmol/L (98-107); Creatinine, Serum 1.87 mg/dL (0.70-1.30); EST Glomerular Filtration Rate 38 mL/min (>60); Est Glom Filt Rate - Afr Amer 46 mL/min (>60); Estimated Creatinine Clearance 36.07 ml/min; Glucose 124 mg/dL (74-106); Potassium 3.7 mmol/L (3.5-5.1); Sodium Level 142 mmol/L (136-145)
[2023-01-10 10:12] LABS: Anisocytosis 1+
--- NOTE | 2023-01-10 11:06 | NURSING ---
PT LEFT FLOOR AT 1050 AM WITH CHAIN REPAIRER FOR APPOINTMENT WITH .
--- NOTE | 2023-01-10 12:25 | CASEMGMT ---
Social Work BIMS and PHQ-9 completed for MDS assessment. Janie Robb, SUPERVISOR FILTER ASSEMBLY TORTILLA MAKER
[2023-01-10 13:15] VITALS: PULSE 79; RESP 18; O2SAT 98
[2023-01-10 13:25] VITALS: BP 137/66; PULSE 79; RESP 18; TEMP 36.1; O2SAT 98
[2023-01-10 13:39] LABS: ALB/GLOB Ratio 1.1 RATIO (0.9-2.4); AST(SGOT) 12 U/L (15-37); Alanine Aminotransfer ALT/SGPT 34 U/L (16-61); Albumin, Serum 3.3 g/dL (3.2-5.0); Alkaline Phosphatase 83 U/L (45-117); PSA,Total - Annual Screen 4.66 ng/mL (0.00-4.00); Protein, Total 6.3 g/dL (6.4-8.2); Thyroid Stim Hormone (TSH) 2.14 uIU/mL (0.358-3.74)
--- NOTE | 2023-01-10 13:57 | NURSING ---
PT RETURNED FROM APPOINTMENT AT 1330 WITH DAUGHTER.
[2023-01-10 14:08] LABS: Hepatitis C Antibody Non-Reactive (Nonreactive); Vitamin D,25 Hydroxy 30.3 ng/mL
[2023-01-13 13:15] LABS: Pathologist Review Reviewed
== END 2023-01-10 14:30 | disposition home health service (06) | DRG 194 ==
PROVIDERS: Admitting Provider Family Medicine Geriatric Medicine; Referring Provider Family Medicine Geriatric Medicine; Visit Provider Family Medicine Geriatric Medicine
DX: J13 Pneumonia due to Streptococcus pneumoniae (principal); J44.0 Chronic obstructive pulmonary disease with (acute) lower respiratory infection; D68.59 Other primary thrombophilia; E87.20 Acidosis, unspecified; C91.10 Chronic lymphocytic leukemia of B-cell type not having achieved remission; N18.30 Chronic kidney disease, stage 3 unspecified; J84.10 Pulmonary fibrosis, unspecified; E21.3 Hyperparathyroidism, unspecified; I12.9 Hypertensive chronic kidney disease with stage 1 through stage 4 chronic kidney disease, or unspecified chronic kidney disease; G47.33 Obstructive sleep apnea (adult) (pediatric); I25.10 Atherosclerotic heart disease of native coronary artery without angina pectoris; K22.70 Barrett's esophagus without dysplasia; K21.9 Gastro-esophageal reflux disease without esophagitis; Z79.82 Long term (current) use of aspirin; B95.3 Streptococcus pneumoniae as the cause of diseases classified elsewhere; B00.1 Herpesviral vesicular dermatitis; Z79.51 Long term (current) use of inhaled steroids; Z79.899 Other long term (current) drug therapy; Z86.718 Personal history of other venous thrombosis and embolism; Z86.711 Personal history of pulmonary embolism
CPT/HCPCS: 36415; 80048; 80053; 82306; 83735; 84153; 84443; 85025; 86803; 87811; 92523; 97110; 97116; 97162; 97166; 97530; 97535; 97802; G0103

== ENCOUNTER → 2023-01-15 | Outpatient (CLI) | payer MEDICARE, OTHER, SELFPAY ==
--- NOTE | 2023-01-15 13:56 | VDLE_ITS ---
Reason For Study: Edema RIGHT LEFT Portions of Rt GSV and SSV are dilated and CFV is compressible, spontaneous, phasic, NONCOMPRESSIBLE with bright intraluminal competent, and demonstrates normal echoes. augmentation. CFV is compressible, spontaneous, phasic, competent and demonstrates normal augmentation. FV is compressible, spontaneous, phasic, competent and demonstrates normal augmentation. POP V is compressible, spontaneous, phasic, competent and demonstrates normal augmentation. T/P Trunk is compressible. PTV is compressible. RT PerV is compressible. Procedure This is a venous duplex using B-mode, color flow and spectral Doppler. Exam performed in department. The exam was diagnostic. A preliminary report was called and/or faxed to Dr. Orozco's office. VL/Venous Duplex US, Unilateral Interpretation Summary There is no evidence of right lower extremity deep vein thrombosis. Superficial thrombophlebitis right great and small saphenous veins. Bright internal echoes suggest a more ch ronic component of disease. Normal flow patterns left common femoral vein Ordering Physician: Leighton Orozco Chi Referring Physician: Leighton Orozco Chi Performed By: Steve Harris RVT
== END | disposition home or self-care (01) ==
LOC: CVS 13:54
PROVIDERS: Referring Provider Family Medicine Geriatric Medicine; Visit Provider Family Medicine Geriatric Medicine
DX: R60.0 Localized edema (principal)
CPT/HCPCS: 93971

== ENCOUNTER → 2023-01-20 | Outpatient (CLI) | payer MEDICARE, OTHER, SELFPAY ==
[2023-01-20 15:59] LABS: Anion Gap 9 (5-15); BUN 22 mg/dL (7-18); BUN/Creat Ratio 13.8 RATIO (10-20); Calcium,Total 7.2 mg/dL (8.5-10.1); Chloride 112 mmol/L (98-107); EST Glomerular Filtration Rate 46 mL/min (>60); Est Glom Filt Rate - Afr Amer 55 mL/min (>60); Glucose 99 mg/dL (74-106); Potassium 3.8 mmol/L (3.5-5.1); Sodium Level 143 mmol/L (136-145)
== END | disposition home or self-care (01) ==
LOC: LAB 14:36
PROVIDERS: PCP Family Medicine Geriatric Medicine; Visit Provider Family Medicine Geriatric Medicine
DX: I10 Essential (primary) hypertension (principal)
CPT/HCPCS: 36415; 80048

== ENCOUNTER → 2023-03-03 | Outpatient (CLI) | payer MEDICARE, OTHER, SELFPAY ==
--- NOTE | 2023-03-03 08:30 | MRI_ITS ---
EXAMINATION: MR Prostate WO/W Contrast COMPARISON: None CLINICAL HISTORY: 67 yo M with elevated PSA Most recent PSA = 4.1 TECHNIQUE: Standard prostate MR protocol was used before and after administration of 18 cc of IV Clariscan. FINDINGS: Prostate volume: 50 cc PSA density: 0.08 ng/ml2 Length of membranous urethra: 22 mm Post-biopsy hemorrhage: None Multiparametric MR evaluation: Heterogeneous appearance of the central gland is consistent with benign prostatic hyperplasia. Lesion 1: LOCATION - 6 x 9 x 7 mm moderately T2 hypointense ill-defined lesion in the left posterior peripheral zone between apex and mid gland. It is slightly bright on DWI and moderately dark on ADC. T2 - 3 DWI - 3 DCE - inconclusive Overall PI-RADS v2 score = 3 Capsular margin and neurovascular bundle: Not involved Seminal vesicles: Not involved. Lymph nodes: There is bilateral external iliac and inguinal lymphadenopathy. For example, there is a 2.4 cm enlarged right external iliac node. Bones: No suspicious lesions in the field of view. MRI/Pelvis W/WO Contrast IMPRESSION: 9 mm PI-RADS 3 lesion in the left posterior PZ between mid gland and apex. - Bilateral external iliac and inguinal lymphadenopathy. - No evidence of macroscopic extracapsular extension. - No evidence of seminal vesicle invasion. - No suspicious bone lesions. Electronically Signed: David Newsome MD at 21:01 EST ,
== END | disposition home or self-care (01) ==
LOC: MRI 07:59
PROVIDERS: PCP Family Medicine Geriatric Medicine; Referring Provider Urology; Visit Provider Urology
DX: R97.20 Elevated prostate specific antigen [PSA] (principal)
CPT/HCPCS: 72197; A9575

== ENCOUNTER → 2023-03-14 | Outpatient (CLI) | payer MEDICARE, OTHER, SELFPAY ==
--- NOTE | 2023-03-14 12:48 | CT_ITS ---
STUDY: CT CHEST WITH CONTRAST REASON FOR EXAM: Male, 67 years old. F/U MULTIPLE LUNG NODULES -- COMPARE TO [facility] AUGUST AND NOVEMBER 2022 RADIATION DOSAGE (If Supplied By Facility): CTDIvol = ( 15.64 ) mGy, DLP = ( 550.49 ) mGycm TECHNIQUE: Transaxial imaging was performed following intravenous administration of IV 100mL Isovue-370. Individualized dose optimization techniques were used for this CT. COMPARISON: Comparison is made with prior outside examination dated December 01, 2022. FINDINGS: CHEST There are enlarged bilateral axillary lymph nodes more prominent on the left side. There is a 3.1 cm x 3.1 cm heterogeneous nodule in the posterior aspect of the right upper lobe laterally. This abuts the right minor fissure. There is also evidence of a 2.3 cm x 1.4 cm nodule in the anterior medial aspect of the right middle lobe. There is no demonstrated pleural abnormality. Normal heart and pericardium. Enlarged mediastinal lymph nodes. Enlarged right hilar lymph nodes. Intraluminal filling defects are seen in branches of the right lower lobe pulmonary artery in keeping with pulmonary emboli. Normal aorta arch and descending thoracic aorta. There are degenerative changes of the thoracic spine. Deformity of a right mid rib laterally most likely postsurgical in nature. There is no demonstrated abnormality of the visualized upper abdomen. CT/Chest WITH Contrast IMPRESSION: Progressive enlargement of the bilateral axillary lymph nodes worse on the left side as well as the mediastinal and right hilar lymph nodes. Pulmonary nodules in the right lung as described. Pulmonary emboli in branches of the right lower lobe pulmonary artery. Electronically Signed: Yayo Huizar MD at 15:05 EST ,
== END | disposition home or self-care (01) ==
PROVIDERS: PCP Family Medicine Geriatric Medicine; Referring Provider Internal Medicine Hematology & Oncology; Visit Provider Internal Medicine Hematology & Oncology
DX: C91.10 Chronic lymphocytic leukemia of B-cell type not having achieved remission (principal); R91.8 Other nonspecific abnormal finding of lung field
CPT/HCPCS: 71260; J7040; Q9967; A4216

== ENCOUNTER → 2023-03-21 | Outpatient (CLI) | payer MEDICARE, OTHER, SELFPAY ==
[2023-03-21] VITALS (17 sets, daily range): BP systolic 130–163; BP diastolic 69–92; PULSE 67–74; RESP 10–20; TEMP 36.6; O2SAT 92–97; BMI 27.6
--- NOTE | 2023-03-21 | IMM_PTH ---
PATIENT: ADINA DAVID LOC: CT U#:[id number] AGE/SX: 67/M ROOM: RE03/21/[address]: Dr. Lavinia Pascual MD : 1955 BED: DIS: 03/21/2023 SPEC #: [id number] RECD: 03/24/23 14:25 STATUS: KEELY REQ #: [id number] PEDRO: 03/21/23 00:[address]: Lavinia Pascual DEPT: IMMUNOHISTOCHEMISTRY RECD BY: Avis Deng ENTERED: 03/24/23 14:27 SP TYPE: IMMUNO OTHR DR: Dr. Leighton Orozco MD Tissues: Right lung, NOS Procedures: RCC (add) NAPSIN A (add) CD10 (add) CD20 (add) CD23 (add) CD3 (add) CD45 (add) CD5 (add) CD79A (add) CK7 (add) CK8 (add) CYCLIN (add) HEP PAR (add) TTF1 (add) Pankeratin (initial) PSAP (add) PHYSICIAN & [address] [address] SPECIMEN INFORMATION: Tissue Source: Right lung mass Clinical Info: Right lung mass Specimen Number: [id number] CPT code: 43339, 13237 x16 METHODOLOGY: Deparaffinized sections of prefer/formalin-fixed tissue or PAP/DQ stained slides are incubated with monoclonal/polyclonal antibodies/oligonucleotide probes. Localization is made via biotin free immunoperoxidase method. Appropriate controls are performed and reacted as expected. Results on target cell population are indicated in the following table: RESULTS: ANTIBODY / CLONE RESULT AE1-3 (AE1/AE3/PCK26) negative CK7 (OV-TL12/30) negative CK8 (69egysD65) negative CD3 (PS1) negative CD5 (SP10) positive CD20 (L26) positive CD45 (RP2/18) positive CD79a (11E3) positive CD10 (56C6) negative Vimentin (V9) positive TTF-1 (8G7G3/1) negative Napsin A (Rabbit Polyclonal) negative HepPar (OCh1E5) negative RCC (PN-15) negative PSAP (PASE/4LJ) negative CD23 (1B12) positive, focal Cyclin D1/BCL-1 (SP4) negative These tests were developed and their performance characteristics determined by [facility]. They may not have been cleared or approved by the U.S. Food and Drug Administration. The FDA has determined that such clearance or approval is not necessary. The above immunohistochemical/dualISH markers are ordered and reviewed by the Pathologist. 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 See comment. SJ:fransisco 03/25/2023 Comment: Areas of necrosis are also noted, further evaluation is not possible. Case has been reviewed in consultation with Dr. Sandy who concurs with the above diagnosis. IDC:AM
[2023-03-21 08:58] LABS: Partial Thromboplast Time 25.9 Seconds (24.1-36.2)
[2023-03-21 09:18] LABS: International Normalized Ratio 1.2; Prothrombin Time (Protime)PT. 14.9 SECONDS (11.7-14.9)
[2023-03-21] MEDS: 0.9% Normal Saline (250mL Bag) 250 ML 15 ML IV (09:38)
[2023-03-21] MEDS: Midazolam 2 MG/2 ML Syringe IV ×2 (09:39→09:53)
[2023-03-21] MEDS: fentaNYL 100 MCG/2 ML Ampul IV ×2 (09:42→09:56)
[2023-03-21] MEDS: Lidocaine 2% (20 ml mdv) 20 ML Vial INFILT (09:50)
--- NOTE | 2023-03-21 10:00 | ASPIGT_PTH ---
PATIENT: ADINA DAVID LOC: CT U#:[id number] AGE/SX: 67/M ROOM: RE03/21/[address]: Dr. Lavinia Pascual MD : 1955 BED: DIS: 03/21/2023 SPEC #: [id number] RECD: 03/21/23 10:20 STATUS: KEELY REQ #: [id number] PEDRO: 03/21/23 10:[address]: Lavinia Pascual DEPT: SURGICAL PATHOLOGY RECD BY: Michaela Jay ENTERED: 03/21/23 10:20 SP TYPE: ASP RAD OTHR DR: Dr. Leighton Orozco MD Tissues: Lung, NOS Procedures: FNA Specimen Adequacy Special Stain Group II Special Stain Group I Surgery Specimen Level IV AFB Stain (control) GMS Stain (control) Imprint (control) HEADER OPERATION: CT guided right lung biopsy PRE-OP DIAGNOSIS: Right lung mass, renal cancer TISSUE SUBMITTED: Right lung core biopsy MICROSCOPIC DIAGNOSIS Right lung, CT-guided core biopsy: Consistent with involvement by B-cell chronic lymphocytic leukemia/small lymphocytic lymphoma (CLL/SLLL). See comment. SJ:fransisco 03/25/2023 COMMENT The specimen is evaluated at the time of biopsy by Dr. Machado. Immediate Evaluation = Mildly atypical cells noted. Special stains for acid fast bacilli and fungi are negative for organisms; matched controls are appropriate. Immunohistochemistry ([id number]) supports the above diagnosis. Focal areas of necrosis are also noted, further evaluation is not possible. Correlation with clinical, radiologic findings and appropriate follow up are necessary. Please make reference to previous specimen from [facility] ([id number]), kidney, right radical nephrectomy with diagnosis of clear cell renal cell carcinoma, WHO/ISUP grade 2, with renal vein invasion and renal vein thrombus. This case is discussed with Dr. Pascual on 03/26/2023 Case has been reviewed in consultation with Dr. Sandy who concurs with the above diagnosis. IDC:AM MICROSCOPIC DESCRIPTION Slides are reviewed. GROSS DESCRIPTION Received in fixative is one container labeled with the patient's name and designated right lung. The specimen consists of multiple minute fragments of elongated price tissue that in aggregate measure 0.8 x 0.1 x 0.1 cm. The specimen is totally submitted in one cassette. / AM:fransisco 03/21/2023 TC:0 CPT: 78744, 34181, 62264 x2 ADDENDUM ADDENDUM ADDENDUM ADDENDUM ADDENDUM ADDENDUM ADDENDUM ADDENDUM ADDENDUM ADDENDUM 04/24/2023 12:16 ADDENDUM 04/24/2023 12:16 ADDENDUM 04/24/2023 12:16 ADDENDUM 04/24/2023 12:16 ADDENDUM 04/24/2023 12:16 This addendum is added to incorporate an outside pathology consultation report. The case was examined at [facility] (#[id number]) and the following diagnosis was rendered. 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 Please see complete above mentioned consultation report in EMR
--- NOTE | 2023-03-21 10:10 | RAD_ITS ---
STUDY: X-RAY CHEST REASON FOR EXAM: Male, 67 years old. Immediately post lung biopsy -- Immediately post lung biopsy TECHNIQUE: AP inspiration and expiration views. COMPARISON: None. FINDINGS: No evidence of pneumothorax on the immediate post right lung biopsy radiographs. RAD/Chest Insp/Exp 2 View IMPRESSION: No evidence of pneumothorax on the immediate post right lung biopsy radiographs. Electronically Signed: Yayo Huizar MD at 11:16 EST ,
--- NOTE | 2023-03-21 12:09 | RAD_ITS ---
STUDY: X-RAY CHEST REASON FOR EXAM: Male, 67 years old. 2 hours post lung biopsy -- 2 hours post lung biopsy TECHNIQUE: AP and inspiration expiration views. COMPARISON: Comparison is made with prior study done earlier today. FINDINGS: No evidence of pneumothorax on the 2 hour post right lung biopsy radiographs. RAD/Chest Insp/Exp 2 View IMPRESSION: No evidence of pneumothorax on the two-hour post right lung biopsy radiographs. Electronically Signed: Yayo Huizar MD at 13:55 EST ,
--- NOTE | 2023-03-21 13:41 | PRO.PCM_ITS ---
Procedure Report Date of Procedure: 03/21/23 Assessment & Plan Assessment/Plan (1) Multiple lung nodules: PLAN: PROCEDURE: CT GUIDED CORE NEEDLE LUNG BIOPSY ORDERING PROVIDER: Dr. Pascual INDICATION: Male, 67 years old. Multiple lung nodules. PROVIDER: DIANA Xavier CONSENT: Written informed consent was obtained having explained the risks, benefits and alternatives in detail with the patient and daughter who accepted the risks and agreed to proceed. Laboratory review and clinical assessment was performed. PRE-PROCEDURE SEDATION ASSESSMENT: Current history and physical dictated by referring physician and reviewed. No clinical changes since date of exam. Patient has an ASA Class of 2. PROCEDURAL SEDATION PROTOCOL: The Drugs used were: 2 mg Versed, IV, and 75 mcg Fentanyl, IV. The sedation time was: 23 minutes, starting at 9:39 AM and terminated at 10:02 AM. The procedural sedation protocol was independently monitored by the department nurse. RADIATION DOSAGE (If Supplied By Facility): CTDIvol = 24.84 mGy, DLP = 471.01 mGycm Individualized dose optimization techniques were used for this CT. TECHNIQUE: The patient was placed in a supine position. A noncontrast CT was performed to localize the lesion in the right upper lobe. The skin surface was prepped and draped in a sterile fashion. 2% lidocaine was used for local anesthesia. Using CT guidance, a 20-gauge coaxial biopsy device was advanced to the p eriphery of the lesion. A total of 5 core specimens were obtained. Specimens were microscopically reviewed by pathology in the CT suite and placed in formalin solution. BioSentry tract sealant system was deployed at the biopsy site, and the biopsy needle was removed. A sterile occlusive dressing was applied to the biopsy site. The patient tolerated the procedure well. An immediate chest xray was ordered, per protocol. A negative biopsy does not exclude malignancy. Further imaging or clinical followup based on patient condition and degree of clinical suspicion for malignancy. Suggest rebiopsy, if biopsy results do not match with clinical scenario. IMPRESSION: 1. CT directed core needle biopsy of right upper lobe nodule using CT image guidance with image documentation as described. Pathology results are pending. 2. Procedural Sedation protocol utilized with independent monitoring by the department nurse. Procedures Radiology Radiology CT Procedures: [id number] Biopsy Lung
== END | disposition home or self-care (01) ==
PROVIDERS: Nurse Practitioner Acute Care; PCP Family Medicine Geriatric Medicine; Referring Provider Internal Medicine Hematology & Oncology; Visit Provider Internal Medicine Hematology & Oncology
DX: C91.10 Chronic lymphocytic leukemia of B-cell type not having achieved remission (principal); C64.1 Malignant neoplasm of right kidney, except renal pelvis; D17.9 Benign lipomatous neoplasm, unspecified; R91.8 Other nonspecific abnormal finding of lung field; Z85.828 Personal history of other malignant neoplasm of skin
CPT/HCPCS: 32408; 36415; 71046; 77012; 85610; 85730; 88172; 88305; 88312; 88313; 88341; 88342; 99156; J7050; A4216; C2613

== ENCOUNTER → 2023-03-24 | Outpatient (CLI) | payer MEDICARE, OTHER, SELFPAY ==
[2023-03-24 17:17] LABS: Absolute Lymphocyte Count 27.74 X10^3/uL (0.83-4.51); Absolute Neutrophil Count 6.2 X10^3/uL (2.0-7.7); Basophil# 0.09 X10^3/uL; Basophil% 0.2 % (0-1); Eosinophil# 0.05 X10^3/uL; Eosinophils% 0.1 % (0-5); Hematocrit 36.8 % (40-54); Hemoglobin 11.9 g/dL (13.0-16.5); Lymphocyte # 27.74 X10^3/ul (0.83-4.51); Lymphocyte % 62.1 % (19-41); Mean Corp Hgb Conc 32.3 g/dL (32-36); Mean Corpuscular Hgb 40.5 pg (27.0-32.0); Mean Corpuscular Volume 125.2 fL (80-94); Mean Platelet Vol. 9.2 fl (6.2-12.0); Monocyte# 10.41 X10^3/uL; Monocyte% 23.3 % (0-10); NRBC Flagged by Analyzer 0 % (0-5); Neutrophil # 6.16 X10^3/uL (2.7-7.7); Neutrophil % 13.7 % (47-70); POSITIVE COUNT YES; POSITIVE DIFFERENTIAL YES; POSITIVE MORPHOLOGY YES; Platelet Count 456 K/mm3 (150-450); RBC Distribution Width CV 14.1 % (11.6-14.6); RBC Distribution Width SD 63.9 fl (35.1-43.9); Red Blood Count 2.94 M/mm3 (4.6-6.2); White Blood Count 44.7 K/mm3 (4.4-11.0)
[2023-03-24 17:45] LABS: Differential Indicated SCAN CRITERIA MET
[2023-03-24 18:25] LABS: Anion Gap 11 (5-15); BUN 24 mg/dL (7-18); BUN/Creat Ratio 12.9 RATIO (10-20); Calcium,Total 7.6 mg/dL (8.5-10.1); Chloride 107 mmol/L (98-107); Creatinine, Serum 1.86 mg/dL (0.70-1.30); EST Glomerular Filtration Rate 38 mL/min (>60); Est Glom Filt Rate - Afr Amer 47 mL/min (>60); Glucose 140 mg/dL (74-106); Potassium 3.5 mmol/L (3.5-5.1); Sodium Level 139 mmol/L (136-145)
[2023-03-25 12:57] LABS: Pathologist Review Reviewed
== END | disposition home or self-care (01) ==
LOC: POLAB3 16:47
PROVIDERS: PCP Family Medicine Geriatric Medicine; Visit Provider Family Medicine Geriatric Medicine
DX: N18.4 Chronic kidney disease, stage 4 (severe) (principal)
CPT/HCPCS: 36415; 80048; 85025

== ENCOUNTER → 2023-04-02 | Outpatient (CLI) | payer MEDICARE, OTHER, SELFPAY ==
--- NOTE | 2023-04-02 13:20 | RAD_ITS ---
STUDY: X-RAY CHEST REASON FOR EXAM: Male, 67 years old. COPD TECHNIQUE: PA and lateral views of the chest. COMPARISON: 03/21/2023. FINDINGS: There is a right midlung nodule measuring 3.3 cm, unchanged in the interval. Remainder of the lung morales are clear. There is no demonstrated pleural abnormality. Normal size heart. Normal mediastinum and gavin. Normal visualized pulmonary arteries. There is atherosclerotic calcification of the aortic arch with tortuosity. There are diffuse degenerative changes of the visualized thoracic spine. Normal visualized ribs, clavicles, and shoulders. There is no demonstrated abnormality of the visualized soft tissue structures of the upper abdomen. RAD/Chest PA and Lateral IMPRESSION: Unchanged right mid upper lung nodule, otherwise no acute cardiopulmonary disease. Electronically Signed: Marlena Apple MD at 21:59 EST ,
== END | disposition home or self-care (01) ==
PROVIDERS: PCP Family Medicine Geriatric Medicine; Referring Provider Family Medicine Geriatric Medicine; Visit Provider Family Medicine Geriatric Medicine
DX: R68.83 Chills (without fever) (principal); J44.9 Chronic obstructive pulmonary disease, unspecified
CPT/HCPCS: 71046; 87635; 87804; 87807; C9803

== ENCOUNTER → 2023-04-16 | Outpatient (CLI) | payer MEDICARE, OTHER, SELFPAY ==
[2023-04-16] VITALS (15 sets, daily range): BP systolic 116–150; BP diastolic 56–84; PULSE 74–79; RESP 14–20; TEMP 36; O2SAT 94–99; BMI 28.0
--- NOTE | 2023-04-16 | ASPIGT_PTH ---
PATHOLOGY RESULTS PATIENT: ADINA DAVID LOC: CT U#:[id number] AGE/SX: 67/M ROOM: RE04/16/[address]: Dr. Lavinia Pascual MD : 1955 BED: DIS: 04/16/2023 SPEC #: [id number] RECD: 04/16/23 12:17 STATUS: KEELY REQ #: [id number] PEDRO: 04/16/23 00:[address]: Lavinia Pascual DEPT: SURGICAL PATHOLOGY RECD BY: Elvie Resendiz ENTERED: 04/16/23 12:18 SP TYPE: ASP RAD OTHR DR: Dr. Leighton Orozco MD Tissues: Lung, NOS Procedures: FNA Specimen Adequacy Gen Path Consultation (on slides) Special Stain Group II Surgery Specimen Level IV Imprint (control) HEADER OPERATION: CT-guided right lung biopsy PRE-OP DIAGNOSIS: Lung nodules, CLL TISSUE SUBMITTED: Right lung 20-gauge x4 MICROSCOPIC DIAGNOSIS Right lung, CT-core biopsy: Minute fragments of fibroconnective tissue with mixed inflammatory background, foci of necrosis and tiny focus of lymphoid aggregate with immunophenotypic features suggestive of minimal involvement by patient's history of chronic lymphocytic leukemia/small lymphocytic lymphoma (CLL/SLL). See comment. SJ:rg 04/24/2023 COMMENT The specimen is evaluated at the time of biopsy by Dr. Machado. Immediate Evaluation = Negative for malignant cells. The specimen is sent to [facility] for expert opinion, reviewed by Dr. Butler and the above diagnosis is rendered. The complete report is viewable in the patient's EMR. Case has been reviewed in consultation with Dr. Sandy who concurs with the above diagnosis. IDC:AM MICROSCOPIC DESCRIPTION Slides are reviewed. GROSS DESCRIPTION Received in fixative is one container labeled with the patient's name and designated right lung. The specimen consists of multiple irregular fragments of price soft tissue that in aggregate measure 1.0 x 0.1 x 0.1 cm. The specimen is totally submitted in one cassette. Two touch imprints are prepared at the time of core biopsy. / DAVID:fransisco 04/16/2023 TC:0 CPT: 15939, 98821
[2023-04-16 09:50] LABS: Absolute Lymphocyte Count 40.79 X10^3/uL (0.83-4.51); Absolute Neutrophil Count 8.4 X10^3/uL (2.0-7.7); Basophil# 0.12 X10^3/uL; Basophil% 0.2 % (0-1); Eosinophil# 0.01 X10^3/uL; Hematocrit 37.1 % (40-54); Hemoglobin 11.7 g/dL (13.0-16.5); Lymphocyte # 40.79 X10^3/ul (0.83-4.51); Lymphocyte % 71.5 % (19-41); Mean Corp Hgb Conc 31.5 g/dL (32-36); Mean Corpuscular Hgb 38.7 pg (27.0-32.0); Mean Corpuscular Volume 122.8 fL (80-94); Mean Platelet Vol. 8.9 fl (6.2-12.0); Monocyte# 7.36 X10^3/uL; Monocyte% 12.9 % (0-10); NRBC Flagged by Analyzer 0 % (0-5); Neutrophil # 8.38 X10^3/uL (2.7-7.7); Neutrophil % 14.8 % (47-70); POSITIVE COUNT YES; POSITIVE DIFFERENTIAL YES; POSITIVE MORPHOLOGY YES; Platelet Count 590 K/mm3 (150-450); RBC Distribution Width CV 13.3 % (11.6-14.6); RBC Distribution Width SD 59.9 fl (35.1-43.9); Red Blood Count 3.02 M/mm3 (4.6-6.2)
[2023-04-16 09:55] LABS: Differential Indicated SCAN CRITERIA MET
[2023-04-16 10:04] LABS: Partial Thromboplast Time 27.7 Seconds (24.1-36.2); Prothrombin Time (Protime)PT. 13.5 SECONDS (11.7-14.9)
[2023-04-16] MEDS: 0.9% Saline Lock 10 ML Syringe IV (10:19)
[2023-04-16] MEDS: 0.9% Normal Saline (250mL Bag) 250 ML 15 ML IV (10:24)
[2023-04-16 10:26] LABS: Differential Comment SCANNED
[2023-04-16 10:27] LABS: Atypical Lymphocyte 1+ %; Reactive Lymphocyte 1+
--- NOTE | 2023-04-16 10:30 | RAD_ITS ---
EXAM: XR CHEST, 2 VIEWS CLINICAL INDICATION: post lung biopsy -- Immediately post lung biopsy TECHNIQUE: Frontal and lateral views of the chest. COMPARISON: 04/02/2023. FINDINGS: LUNGS AND PLEURAL SPACES: Right midlung nodule is unchanged. No effusion. No obvious pneumothorax. HEART: Unremarkable. Cardiac silhouette not enlarged. MEDIASTINUM: Central airways and mediastinal contour are unremarkable. BONES/JOINTS: Unremarkable. No acute fracture. SOFT TISSUES: Unremarkable. RAD/Chest Insp/Exp 2 View IMPRESSION: 1. Right midlung nodule is unchanged. 2. No obvious pneumothorax and no significant interval change when compared to 04/02/2023. Electronically Signed: Diego Reed MD at 11:19 EST ,
[2023-04-16] MEDS: Midazolam 2 MG/2 ML Syringe IV (10:31)
[2023-04-16] MEDS: fentaNYL 100 MCG/2 ML Ampul IV (10:33)
[2023-04-16] MEDS: Lidocaine 2% (20 ml mdv) 20 ML Vial INFILT (10:48)
--- NOTE | 2023-04-16 11:24 | PRO.PCM_ITS ---
Procedure Report Date of Procedure: 04/16/23 Assessment & Plan Assessment/Plan (1) Multiple lung nodules: PLAN: PROCEDURE: CT GUIDED CORE NEEDLE LUNG BIOPSY ORDERING PROVIDER: Dr. Pascual INDICATION: Male, 67 years old. Rebiopsy of second nodule, posterior aspect of the right upper lobe laterally. PROVIDER: DIANA Xavier CONSENT: Written informed consent was obtained having explained the risks, benefits and alternatives in detail with the patient and daughter who accepted the risks and agreed to proceed. Laboratory review and clinical assessment was performed. PRE-PROCEDURE SEDATION ASSESSMENT: Current history and physical dictated by referring physician and reviewed. No clinical changes since date of exam. Patient has an ASA Class of 2. PROCEDURAL SEDATION PROTOCOL: The Drugs used were: 2 mg Versed, IV, and 50 mcg Fentanyl, IV. The sedation time was: 29 minutes, starting at 1031 and terminated at 1100. The procedural sedation protocol was independently monitored by the department nurse. RADIATION DOSAGE (If Supplied By Facility): CTDIvol = 17.31 mGy, DLP = 308.02 mGycm Individualized dose optimization techniques were used for this CT. TECHNIQUE: The patient was placed in a prone position. A noncontrast CT was performed to localize the lesion in the right upper lobe. The skin surface was prepped and draped in a sterile fashion. 2% lidocaine was used for local anesthesia. Using CT guidance, a 20-gauge coaxial biopsy device was advanced to the periphery of the lesion. A total of 4 core specimens were obtained. Specimens were microscopically reviewed by pathology in the CT suite and placed in f ormalin solution. The biopsy needle was removed. A sterile occlusive dressing was applied to the biopsy site. The patient tolerated the procedure well, despite moderate hemoptysis. An immediate chest xray was ordered, per protocol. The patient did request an image review. This was completed in the recovery bay with the daughter present. A negative biopsy does not exclude malignancy. Further imaging or clinical followup based on patient condition and degree of clinical suspicion for malignancy. Suggest rebiopsy, if biopsy results do not match with clinical scenario. IMPRESSION: 1. CT directed core needle biopsy of right upper lobe nodule using CT image guidance with image documentation as described. Pathology results are pending. 2. Procedural Sedation protocol utilized with independent monitoring by the department nurse. Procedures Radiology Radiology CT Procedures: 14466 Biopsy Lung
--- NOTE | 2023-04-16 12:30 | RAD_ITS ---
INDICATION: 2 hr post lung biopsy -- 2 hours post lung biopsy EXAMINATION/TECHNIQUE: X-RAY - XR Chest 2 Views COMPARISON: April 16, 2023 11:06 AM FINDINGS: LINES/DEVICES: None. LUNGS: There is a stable nodular opacity within the right mid lung. No pneumothorax. MEDIASTINUM AND CARDIOVASCULAR STRUCTURES: Cardiac silhouette not enlarged. Central airways and mediastinal contour are unremarkable. BONES AND SOFT TISSUES: Unremarkable. RAD/Chest Insp/Exp 2 View IMPRESSION: Stable nodular opacity within the right midlung. No apparent pneumothorax. Electronically Signed: Amy Hummel MD at 13:50 EST ,
[2023-04-18 10:45] LABS: Pathologist Review Reviewed
== END | disposition home or self-care (01) ==
PROVIDERS: PCP Family Medicine Geriatric Medicine; Referring Provider Internal Medicine Hematology & Oncology; Visit Provider Internal Medicine Hematology & Oncology
DX: C91.10 Chronic lymphocytic leukemia of B-cell type not having achieved remission (principal)
CPT/HCPCS: 32408; 36415; 71046; 77012; 85025; 85610; 85730; 88172; 88305; 88313; 88325; 99156; J7050; A4216

== ENCOUNTER → 2023-04-18 | Outpatient (CLI) | payer MEDICARE, OTHER, SELFPAY ==
[2023-04-18 13:15] LABS: Absolute Lymphocyte Count 42.44 X10^3/uL (0.83-4.51); Absolute Neutrophil Count 7.1 X10^3/uL (2.0-7.7); Basophil# 0.21 X10^3/uL; Basophil% 0.4 % (0-1); Eosinophil# 0.05 X10^3/uL; Eosinophils% 0.1 % (0-5); Hematocrit 38.2 % (40-54); Hemoglobin 12.4 g/dL (13.0-16.5); Lymphocyte # 42.44 X10^3/ul (0.83-4.51); Lymphocyte % 73.9 % (19-41); Mean Corp Hgb Conc 32.5 g/dL (32-36); Mean Corpuscular Hgb 39.2 pg (27.0-32.0); Mean Corpuscular Volume 120.9 fL (80-94); Mean Platelet Vol. 8.8 fl (6.2-12.0); Monocyte% 12.5 % (0-10); NRBC Flagged by Analyzer 0 % (0-5); Neutrophil # 7.08 X10^3/uL (2.7-7.7); Neutrophil % 12.4 % (47-70); POSITIVE COUNT YES; POSITIVE DIFFERENTIAL YES; POSITIVE MORPHOLOGY YES; Platelet Count 588 K/mm3 (150-450); RBC Distribution Width CV 13.6 % (11.6-14.6); RBC Distribution Width SD 60.6 fl (35.1-43.9); Red Blood Count 3.16 M/mm3 (4.6-6.2); White Blood Count 57.4 K/mm3 (4.4-11.0)
[2023-04-18 13:28] LABS: Differential Indicated SCAN CRITERIA MET
[2023-04-18 13:58] LABS: Vitamin D,25 Hydroxy 38.9 ng/mL
[2023-04-18 14:07] LABS: ALB/GLOB Ratio 0.9 RATIO (0.9-2.4); AST(SGOT) 15 U/L (15-37); Alanine Aminotransfer ALT/SGPT 24 U/L (16-61); Albumin, Serum 3.4 g/dL (3.2-5.0); Alkaline Phosphatase 95 U/L (45-117); Anion Gap 7 (5-15); BUN 31 mg/dL (7-18); BUN/Creat Ratio 19.1 RATIO (10-20); Calcium,Total 8.4 mg/dL (8.5-10.1); Chloride 113 mmol/L (98-107); Creatinine, Serum 1.62 mg/dL (0.70-1.30); EST Glomerular Filtration Rate 45 mL/min (>60); Est Glom Filt Rate - Afr Amer 55 mL/min (>60); Globulin 3.6 g/dL (2.2-4.2); Glucose 97 mg/dL (74-106); Potassium 4.6 mmol/L (3.5-5.1); Sodium Level 140 mmol/L (136-145); Thyroid Stim Hormone (TSH) 1.02 uIU/mL (0.358-3.74)
[2023-04-22 10:22] LABS: Pathologist Review Reviewed
== END | disposition home or self-care (01) ==
PROVIDERS: PCP Family Medicine Geriatric Medicine; Referring Provider Family Medicine Geriatric Medicine; Visit Provider Family Medicine Geriatric Medicine
DX: I10 Essential (primary) hypertension (principal); E55.9 Vitamin D deficiency, unspecified
CPT/HCPCS: 36415; 80053; 82306; 84443; 85025

== ENCOUNTER → 2023-04-25 | Outpatient (CLI) | payer MEDICARE, OTHER, SELFPAY ==
[2023-04-25 15:02] LABS: PTHIN 30.6 pg/mL (18.4-80.1)
== END | disposition home or self-care (01) ==
LOC: LAB 04-30 08:12
PROVIDERS: PCP Family Medicine Geriatric Medicine; Visit Provider Internal Medicine Nephrology
DX: N18.32 Chronic kidney disease, stage 3b (principal); E83.51 Hypocalcemia
CPT/HCPCS: 36415; 83970

== ENCOUNTER → 2023-04-25 | Outpatient (CLI) | payer MEDICARE, OTHER, SELFPAY | END | disposition home or self-care (01) | PROVIDERS: PCP Family Medicine Geriatric Medicine; Referring Provider Internal Medicine Nephrology; Visit Provider Internal Medicine Nephrology | DX: N18.32 Chronic kidney disease, stage 3b (principal) ==

== ENCOUNTER → 2023-04-25 | Outpatient (CLI) | payer MEDICARE, OTHER, SELFPAY | END | disposition home or self-care (01) | LOC: PSN 13:17 | PROVIDERS: PCP Family Medicine Geriatric Medicine; Referring Provider Family Medicine Geriatric Medicine; Visit Provider Family Medicine Geriatric Medicine | DX: R68.83 Chills (without fever) (principal) | CPT/HCPCS: 87631 ==

== ENCOUNTER → 2023-05-29 | Outpatient (CLI) | payer MEDICARE, OTHER, SELFPAY ==
[2023-05-29 14:43] LABS: Anion Gap 4 (5-15); BUN 48 mg/dL (7-18); BUN/Creat Ratio 21.2 RATIO (10-20); Calcium,Total 9.2 mg/dL (8.5-10.1); Chloride 113 mmol/L (98-107); Creatinine, Serum 2.26 mg/dL (0.70-1.30); EST Glomerular Filtration Rate 31 mL/min (>60); Est Glom Filt Rate - Afr Amer 37 mL/min (>60); Glucose 119 mg/dL (74-106); Potassium 5.5 mmol/L (3.5-5.1); Sodium Level 141 mmol/L (136-145)
== END | disposition home or self-care (01) ==
LOC: LABSPEC 13:28
PROVIDERS: PCP Family Medicine Geriatric Medicine; Visit Provider Internal Medicine Nephrology
DX: N18.32 Chronic kidney disease, stage 3b (principal); E87.5 Hyperkalemia; E83.51 Hypocalcemia
CPT/HCPCS: 36415; 80048

== ENCOUNTER → 2023-06-04 | Outpatient (CLI) | payer MEDICARE, OTHER, SELFPAY | END | disposition home or self-care (01) | LOC: PSN 11:32 | PROVIDERS: PCP Family Medicine Geriatric Medicine; Referring Provider Family Medicine Geriatric Medicine; Visit Provider Family Medicine Geriatric Medicine | DX: R68.83 Chills (without fever) (principal) | CPT/HCPCS: 87631 ==

== ENCOUNTER → 2023-06-04 | Outpatient (CLI) | payer MEDICARE, OTHER, SELFPAY ==
[2023-06-04 13:34] LABS: Anion Gap 7 (5-15); BUN 28 mg/dL (7-18); BUN/Creat Ratio 14.7 RATIO (10-20); Chloride 114 mmol/L (98-107); EST Glomerular Filtration Rate 38 mL/min (>60); Est Glom Filt Rate - Afr Amer 45 mL/min (>60); Glucose 104 mg/dL (74-106); Potassium 3.8 mmol/L (3.5-5.1); Sodium Level 140 mmol/L (136-145)
== END | disposition home or self-care (01) ==
LOC: POLAB3 11:17
PROVIDERS: PCP Family Medicine Geriatric Medicine; Visit Provider Family Medicine Geriatric Medicine
DX: E87.5 Hyperkalemia (principal)
CPT/HCPCS: 36415; 80048

== ENCOUNTER → 2023-06-06 | Outpatient (CLI) | payer MEDICARE, OTHER, SELFPAY ==
[2023-06-06 16:20] LABS: Absolute Lymphocyte Count 56.08 X10^3/uL (0.83-4.51); Absolute Neutrophil Count 5.3 X10^3/uL (2.0-7.7); Basophil# 0.12 X10^3/uL; Basophil% 0.2 % (0-1); Hematocrit 34.8 % (40-54); Hemoglobin 11.8 g/dL (13.0-16.5); Lymphocyte # 56.08 X10^3/ul (0.83-4.51); Mean Corp Hgb Conc 33.9 g/dL (32-36); Mean Corpuscular Volume 123.8 fL (80-94); Mean Platelet Vol. 9.2 fl (6.2-12.0); Monocyte# 4.24 X10^3/uL; Monocyte% 6.4 % (0-10); NRBC Flagged by Analyzer 0 % (0-5); Neutrophil # 5.25 X10^3/uL (2.7-7.7); POSITIVE COUNT YES; POSITIVE DIFFERENTIAL YES; POSITIVE MORPHOLOGY YES; Platelet Count 480 K/mm3 (150-450); RBC Distribution Width CV 15.5 % (11.6-14.6); RBC Distribution Width SD 69.5 fl (35.1-43.9); Red Blood Count 2.81 M/mm3 (4.6-6.2)
[2023-06-06 16:32] LABS: Differential Indicated SCAN CRITERIA MET
[2023-06-06 16:51] LABS: Anion Gap 6 (5-15); BUN 32 mg/dL (7-18); BUN/Creat Ratio 17.8 RATIO (10-20); Calcium,Total 7.3 mg/dL (8.5-10.1); Chloride 117 mmol/L (98-107); EST Glomerular Filtration Rate 40 mL/min (>60); Est Glom Filt Rate - Afr Amer 48 mL/min (>60); Ferritin 29 ng/mL (26-388); Glucose 153 mg/dL (74-106); Iron 100 ug/dL (65-175); Iron Binding Capacity,Total 393 ug/dL (250-450); PERCENT IRON SATURATION 25.4 % (15.0-55.0); Potassium 4.2 mmol/L (3.5-5.1); Sodium Level 142 mmol/L (136-145)
[2023-06-06 17:00] LABS: Differential Comment SEE COMMENTS
[2023-06-06 17:01] LABS: Platelet Estimate MOD INC (ADEQ); Toxic Granulation RARE
[2023-06-06 17:02] LABS: Anisocytosis 2+; Macrocytosis 2+; Ovalocyte RARE; Red Cell Morphology N CHROM NORMAL (NORM C&C)
[2023-06-09 14:25] LABS: Pathologist Review Reviewed
[2023-06-10 11:59] LABS: Thyroid Stim Hormone (TSH) 0.55 uIU/mL (0.358-3.74)
== END | disposition home or self-care (01) ==
LOC: LAB 15:18
PROVIDERS: PCP Family Medicine Geriatric Medicine; Referring Provider Internal Medicine Hematology & Oncology; Visit Provider Internal Medicine Hematology & Oncology
DX: C91.10 Chronic lymphocytic leukemia of B-cell type not having achieved remission (principal); C64.1 Malignant neoplasm of right kidney, except renal pelvis; I10 Essential (primary) hypertension; D50.0 Iron deficiency anemia secondary to blood loss (chronic)
CPT/HCPCS: 36415; 80048; 82728; 83540; 83550; 84443; 85025

== ENCOUNTER → 2023-06-24 | Outpatient (CLI) | payer MEDICARE, OTHER, SELFPAY | END | disposition home or self-care (01) | LOC: PSN 11:59 | PROVIDERS: PCP Family Medicine Geriatric Medicine; Referring Provider Family Medicine Geriatric Medicine; Visit Provider Family Medicine Geriatric Medicine | DX: R68.83 Chills (without fever) (principal) | CPT/HCPCS: 87631 ==

== ENCOUNTER 2023-07-24 18:14 | Emergency (ER) | payer MEDICARE, OTHER, SELFPAY ==
[2023-07-24 18:18] VITALS: BP 144/89; PULSE 104; PULSE 107; RESP 16; RESP 17; TEMP 36.4; O2SAT 96; BMI 27.8
[2023-07-24 18:24] VITALS: BP 144/89; PULSE 107; RESP 16; TEMP 36.4; O2SAT 97
--- NOTE | 2023-07-24 18:28 | ED.RN ---
PTS DAUGHTER IS ADAMANT PT WILL BE ADMITTED AND IF HE IS NOT SHE WILL TAKE HIM TO [facility]. SHE IS NOT HAPPY PT HAS TO WAIT AND IS STATING SHE WILL TAKE HIM TO [facility] IF HE HAS TO WAIT TO LONG. WHEN ASKING PT QUESTIONS FOR TRIAGE DAUGHTER IS ANSWERING AND VERY AGGRESSIVE IN HER RESPONSES. UNABLE TO GET FULL INFORMATION FROM PT FOR THIS REASON.
--- NOTE | 2023-07-24 18:34 | ED.RN ---
PTS DAUGHTER INTERRUPTED THIS NURSE WITH ANOTHER PT REQUESTING TIME OF WAIT FOR HER FATHER. AGAIN EXPLAINED THAT A TIME CAN NOT BE GIVEN D/T THE NATURE OF OTHER PTS AN SUCH. DAUGHTER STATED OBVIOUSLY THE FACILITY NEEDS MORE STAFF. EXPLAINED THAT THE ROOMS ARE FULL AND MOST HOSPITALS ARE VERY BUSY THEY KNOW FROM OTHER RECENT HOSPITAL VISITS. SHE THEN STATED WE OBVIOUSLY NEED MORE BEDS THEN.
--- NOTE | 2023-07-24 19:04 | ED.RN ---
WHILE TRIAGING ANOTHER PT DAUGHTER MUST HAVE TAKEN PT TO ANOTHER FACILITY BECAUSE PT WAS NO LONGER WAITING TO BE SSEEN.
== END 2023-07-24 19:10 | disposition left against medical advice (07) ==
LOC: ED 19:14
PROVIDERS: PCP Family Medicine Geriatric Medicine
DX: R06.02 Shortness of breath (principal); Z53.21 Procedure and treatment not carried out due to patient leaving prior to being seen by health care provider

== ENCOUNTER → 2023-07-24 | Outpatient (CLI) | payer MEDICARE, OTHER, SELFPAY ==
--- NOTE | 2023-07-24 11:43 | VDLE_ITS ---
Reason For Study: Edema RIGHT LEFT GSV is normal. CFV is compressible, spontaneous, phasic, Acute deep vein thrombosis is noted in the competent, and demonstrates normal CFV, FV, POPV, T/P Trunk, PEROV, SoleusV. It augmentation. is dilated and NONCOMPRESSIBLE. Acute superficial vein thrombosis is noted in the SSV. It is dilated and NONCOMPRESSIBLE. PTV is compressible. Procedure Exam performed in department. This is a venous duplex using B-mode, color flow and spectral Doppler. A preliminary report was called and/or faxed to Dr. Orozco RN. VL/Venous Duplex US, Unilateral Interpretation Summary Acute deep vein thrombosis is noted in the right common femoral vein, femoral v ein, popliteal vein, tibioperoneal trunk vein, peroneal vein, soleus vein. Acute superficial vein thrombosis noted in the right small saphenous vein. Ordering Physician: Leighton Orozco Chi Referring Physician: Leighton Orozco Chi Performed By: Raine Cerna RVT and Student
--- NOTE | 2023-07-24 15:43 | CT_ITS ---
INDICATION: WHEEZING/CONGESTION OF RESP TRACT/COPD EXAMINATION: CT CHEST WITHOUT CONTRAST - CT Chest W/O Contrast Injection TECHNIQUE: Helically acquired images were obtained of the chest. A radiation dose optimization technique was used for this scan. IV Contrast dosage and agent: None. RADIATION DOSAGE (If Supplied By Facility): CTDIvol = ( 14.65 ) mGy, DLP = ( 520.54 ) mGycm COMPARISON: December 01, 2022 FINDINGS: LUNGS, PLEURA AND LARGE AIRWAYS: There is a 1.8 cm spiculated right upper lobe central density, new since the previous study. Patchy interstitial densities in the right lung. There are up to 5 mm pulmonary nodules in the lungs, some are new since the previous study. No pleural effusion or thickening. No pneumothorax. THYROID: No thyroid lesions. HEART AND PERICARDIUM: Heart size is normal. No pericardial effusion. CORONARY ARTERIES: Coronary artery calcifications are present VESSELS: Dilated ascending aorta measuring 4.2 cm. MEDIASTINUM AND EVEI: Mild mediastinal adenopathy. Esophagus is unremarkable. No hiatal hernia. UPPER ABDOMEN: No acute pathology. BONES: Old right rib fractures. CT/Chest without Contrast IMPRESSION: There is a spiculated right upper lobe central density. Patchy interstitial densities in the right lung. There are up to 5 mm pulmonary nodules in the lungs, some are new since the previous study. Dilated ascending aorta. Mild mediastinal adenopathy. Electronically Signed: [place] Michelle DO at 16:52 EDT Reading Location ID and State: [facility] / [place] Tel [phone], Service support ,
== END | disposition home or self-care (01) ==
PROVIDERS: PCP Family Medicine Geriatric Medicine; Referring Provider Family Medicine Geriatric Medicine; Visit Provider Family Medicine Geriatric Medicine
DX: R60.9 Edema, unspecified (principal); J44.9 Chronic obstructive pulmonary disease, unspecified; Z86.718 Personal history of other venous thrombosis and embolism; R68.83 Chills (without fever); R06.2 Wheezing; J98.8 Other specified respiratory disorders
CPT/HCPCS: 71250; 87631; 93971

== ENCOUNTER → 2023-07-25 | Outpatient (CLI) | payer MEDICARE, OTHER, SELFPAY ==
[2023-07-25 12:45] LABS: Absolute Lymphocyte Count 45.11 X10^3/uL (0.83-4.51); Absolute Neutrophil Count 4.7 X10^3/uL (2.0-7.7); Basophil# 0.06 X10^3/uL; Basophil% 0.1 % (0-1); Eosinophil# 0.01 X10^3/uL; Hematocrit 35.2 % (40-54); Hemoglobin 11.8 g/dL (13.0-16.5); Lymphocyte # 45.11 X10^3/ul (0.83-4.51); Lymphocyte % 77.5 % (19-41); Mean Corp Hgb Conc 33.5 g/dL (32-36); Mean Corpuscular Hgb 41.5 pg (27.0-32.0); Mean Corpuscular Volume 123.9 fL (80-94); Mean Platelet Vol. 9.3 fl (6.2-12.0); Monocyte# 7.96 X10^3/uL; Monocyte% 13.7 % (0-10); NRBC Flagged by Analyzer 0 % (0-5); Neutrophil # 4.72 X10^3/uL (2.7-7.7); POSITIVE COUNT YES; POSITIVE DIFFERENTIAL YES; POSITIVE MORPHOLOGY YES; Platelet Count 574 K/mm3 (150-450); RBC Distribution Width CV 14.7 % (11.6-14.6); RBC Distribution Width SD 67.1 fl (35.1-43.9); Red Blood Count 2.84 M/mm3 (4.6-6.2); White Blood Count 58.2 K/mm3 (4.4-11.0)
[2023-07-25 12:57] LABS: Differential Indicated SCAN CRITERIA MET
[2023-07-25 13:15] LABS: Differential Comment SCANNED
[2023-07-25 13:20] LABS: Anion Gap 9 (5-15); BUN 21 mg/dL (7-18); BUN/Creat Ratio 11.5 RATIO (10-20); Calcium,Total 7.2 mg/dL (8.5-10.1); Chloride 113 mmol/L (98-107); Creatinine, Serum 1.83 mg/dL (0.70-1.30); EST Glomerular Filtration Rate 39 mL/min (>60); Est Glom Filt Rate - Afr Amer 47 mL/min (>60); Glucose 121 mg/dL (74-106); Potassium 3.5 mmol/L (3.5-5.1); Sodium Level 141 mmol/L (136-145)
[2023-07-25 13:35] LABS: Color, Urine Yellow (Yellow); Glucose, Dipstick Normal (Normal); Ketone-Dipstick 5 mg/dl (Negative); Leukocyte Esterase-Dipstick 25 /ul (Negative); Nitrite-Dipstick Negative (Negative); Occult Blood-Urine 10 /ul (Negative); Protein-Dipstick 100 mg/dl (Negative); Urine Bilirubin Dipstick Negative (Negative); Urine Clarity Clear (Clear); Urine Urobilinogen 1 mg/dl (Normal)
[2023-07-28 13:44] LABS: Pathologist Review Reviewed
== END | disposition home or self-care (01) ==
PROVIDERS: PCP Family Medicine Geriatric Medicine; Referring Provider Family Medicine Geriatric Medicine; Visit Provider Family Medicine Geriatric Medicine
DX: I12.9 Hypertensive chronic kidney disease with stage 1 through stage 4 chronic kidney disease, or unspecified chronic kidney disease (principal); C85.10 Unspecified B-cell lymphoma, unspecified site; C91.10 Chronic lymphocytic leukemia of B-cell type not having achieved remission; N18.31 Chronic kidney disease, stage 3a; N39.0 Urinary tract infection, site not specified
CPT/HCPCS: 36415; 80048; 81002; 85025; 87040; 87070; 87077; 87086; 87088; 87186; 87205

== ENCOUNTER → 2023-08-08 | Outpatient (CLI) | payer MEDICARE, OTHER, SELFPAY ==
--- NOTE | 2023-08-08 12:17 | NM_ITS ---
CLINICAL: 7-year-old male with history of shortness of breath. VENTILATION-PERFUSION LUNG SCINTIGRAPHY COMPARISON: Plain film chest radiograph 08/08/2023 FINDINGS: The patient was administered 51.1 mCi 99m Tc DTPA aerosol. The aerosol ventilation study demonstrates heterogeneous ventilation in the bilateral lung morales without corresponding radiographic changes visualized on review of plain film chest x-ray dated 08/08/2023. Central clumping of the aerosol is bilateral hemithorax. Following the intravenous administration of 5.2 mCi of 99m Tc MAA, the pulmonary perfusion study reveals non-uniform perfusion in the right and left lung morales. There is a right lung stripe sign. No moderate subsegmental or large segmental ventilation-perfusion mismatches are noted. There are regions of retained normal perfusion visualized. NM/Lung Scan Vent/Perf IMPRESSION: 1. VERY LOW PROBABILITY FOR PULMONARY EMBOLUS (<10%) 99m Tc DTPA aerosol ventilation / 99m Tc MAA pulmonary perfusion imaging examination, according to PIOPED II interpretive criteria with regard given to the presence of a right lung stripe sign and mild heterogeneous lung perfusion. (Sotsman et al, Radiology 246: 941, 2008 Sotsman et al, J Nucl Med 49: 1741, 2008). 2. Central clumping of the aerosol may be secondary to obstructive airway mechanics and or clinical tachypnea. Electronically Signed: Jerry Whalen DO at 9:54 EDT ,
--- NOTE | 2023-08-08 12:57 | RAD_ITS ---
EXAM: XR CHEST, 2 VIEWS CLINICAL INDICATION: lung scan cxr TECHNIQUE: Frontal and lateral views of the chest. COMPARISON: CT chest 07/24/2023 FINDINGS: LUNGS AND PLEURAL SPACES: Prior dated 04/16/2023 right upper lobe pulmonary nodule is less apparent on the current exam. There is increasing interstitial thickening within the right lung which may represent acute or chronic inflammatory lung disease. Blunting of the right costophrenic angle may be due to a small amount of fluid or pleural thickening. HEART: Normal heart size. MEDIASTINUM: No mediastinal or hilar mass. BONES/JOINTS: No acute abnormality. RAD/Chest PA and Lateral IMPRESSION: conspicuity of the right upper lobe pulmonary nodule. Mild interstitial thickening of the right lung which may represent posttreatment/inflammatory change. Electronically Signed: Romie Carr MD at 15:06 EDT ,
== END | disposition home or self-care (01) ==
PROVIDERS: PCP Family Medicine Geriatric Medicine; Referring Provider Family Medicine Geriatric Medicine; Visit Provider Family Medicine Geriatric Medicine
DX: R06.02 Shortness of breath (principal); R91.8 Other nonspecific abnormal finding of lung field
CPT/HCPCS: 71046; 78582; A9540; A9567

== ENCOUNTER → 2023-08-22 | Outpatient (CLI) | payer MEDICARE, OTHER, SELFPAY ==
[2023-08-22 13:25] LABS: Absolute Lymphocyte Count 40.39 X10^3/uL (0.83-4.51); Absolute Neutrophil Count 3.2 X10^3/uL (2.0-7.7); Basophil# 0.09 X10^3/uL; Basophil% 0.2 % (0-1); Eosinophil# 0.02 X10^3/uL; Hematocrit 30.2 % (40-54); Hemoglobin 9.4 g/dL (13.0-16.5); Lymphocyte # 40.39 X10^3/ul (0.83-4.51); Lymphocyte % 84.3 % (19-41); Mean Corp Hgb Conc 31.1 g/dL (32-36); Mean Corpuscular Hgb 39.7 pg (27.0-32.0); Mean Corpuscular Volume 127.4 fL (80-94); Mean Platelet Vol. 9.6 fl (6.2-12.0); Monocyte# 3.79 X10^3/uL; Monocyte% 7.9 % (0-10); NRBC Flagged by Analyzer 0.1 % (0-5); Neutrophil % 6.8 % (47-70); POSITIVE COUNT YES; POSITIVE DIFFERENTIAL YES; POSITIVE MORPHOLOGY YES; Platelet Count 317 K/mm3 (150-450); RBC Distribution Width CV 15.8 % (11.6-14.6); RBC Distribution Width SD 71.2 fl (35.1-43.9); Red Blood Count 2.37 M/mm3 (4.6-6.2); White Blood Count 47.9 K/mm3 (4.4-11.0)
[2023-08-22 14:11] LABS: Differential Indicated SCAN CRITERIA MET
[2023-08-22 14:21] LABS: Hypersegmented Neutrophils 1+; Smudge Cells 1+
[2023-08-22 14:23] LABS: Anisocytosis 1+
[2023-08-26 10:35] LABS: Pathologist Review Reviewed
== END | disposition home or self-care (01) ==
LOC: LAB 12:31
PROVIDERS: PCP Family Medicine Geriatric Medicine; Referring Provider Family Medicine Geriatric Medicine; Visit Provider Family Medicine Geriatric Medicine
DX: E78.5 Hyperlipidemia, unspecified (principal)
CPT/HCPCS: 36415; 85025

== ENCOUNTER → 2023-08-29 | Outpatient (CLI) | payer MEDICARE, OTHER, SELFPAY ==
[2023-08-29 13:10] LABS: Absolute Lymphocyte Count 25.86 X10^3/uL (0.83-4.51); Absolute Neutrophil Count 3.9 X10^3/uL (2.0-7.7); Basophil# 0.04 X10^3/uL; Basophil% 0.1 % (0-1); Eosinophil# 0.02 X10^3/uL; Eosinophils% 0.1 % (0-5); Hematocrit 26.7 % (40-54); Hemoglobin 8.5 g/dL (13.0-16.5); Lymphocyte # 25.86 X10^3/ul (0.83-4.51); Lymphocyte % 76.6 % (19-41); Mean Corp Hgb Conc 31.8 g/dL (32-36); Mean Corpuscular Hgb 39.4 pg (27.0-32.0); Mean Corpuscular Volume 123.6 fL (80-94); Monocyte# 3.83 X10^3/uL; Monocyte% 11.3 % (0-10); NRBC Flagged by Analyzer 0.2 % (0-5); Neutrophil # 3.85 X10^3/uL (2.7-7.7); Neutrophil % 11.5 % (47-70); POSITIVE COUNT YES; POSITIVE DIFFERENTIAL YES; POSITIVE MORPHOLOGY YES; Platelet Count 396 K/mm3 (150-450); RBC Distribution Width CV 15.9 % (11.6-14.6); RBC Distribution Width SD 71.7 fl (35.1-43.9); Red Blood Count 2.16 M/mm3 (4.6-6.2)
[2023-08-29 13:49] LABS: Differential Indicated SCAN CRITERIA MET; White Blood Count 33.8 K/mm3 (4.4-11.0)
[2023-08-29 13:56] LABS: Anisocytosis 2+; Atypical Lymphocyte 1+ %; Differential Comment SCANNED; Macrocytosis 2+; Reactive Lymphocyte 1+; Smudge Cells 1+
[2023-09-01 13:25] LABS: Pathologist Review Reviewed
== END | disposition home or self-care (01) ==
LOC: LAB 11:54
PROVIDERS: PCP Family Medicine Geriatric Medicine; Referring Provider Family Medicine Geriatric Medicine; Visit Provider Family Medicine Geriatric Medicine
DX: I95.9 Hypotension, unspecified (principal)
CPT/HCPCS: 36415; 85025

== ENCOUNTER 2023-09-10 12:19 | Outpatient (CLI) | payer MEDICARE, OTHER, SELFPAY ==
[2023-09-10 13:00] VITALS: BP 133/77; PULSE 75; RESP 16; TEMP 36; O2SAT 97; BMI 27.6
[2023-09-10] MEDS: 0.9% NaCl Peripheral Flush Adult/Peds IV (13:10)
[2023-09-10] MEDS: 0.9% Normal Saline (1000mL) 1,000 ML 999 ML IV ×2 (13:11→14:17)
[2023-09-10 13:30] LABS: Absolute Lymphocyte Count 21.52 X10^3/uL (0.83-4.51); Absolute Neutrophil Count 2.4 X10^3/uL (2.0-7.7); Basophil# 0.05 X10^3/uL; Basophil% 0.2 % (0-1); Eosinophil# 0.07 X10^3/uL; Eosinophils% 0.2 % (0-5); Hematocrit 28.5 % (40-54); Hemoglobin 8.9 g/dL (13.0-16.5); Lymphocyte # 21.52 X10^3/ul (0.83-4.51); Lymphocyte % 69.2 % (19-41); Mean Corp Hgb Conc 31.2 g/dL (32-36); Mean Corpuscular Hgb 39.2 pg (27.0-32.0); Mean Corpuscular Volume 125.6 fL (80-94); Mean Platelet Vol. 10.1 fl (6.2-12.0); Monocyte# 6.85 X10^3/uL; NRBC Flagged by Analyzer 0.2 % (0-5); Neutrophil # 2.44 X10^3/uL (2.7-7.7); Neutrophil % 7.8 % (47-70); POSITIVE COUNT YES; POSITIVE DIFFERENTIAL YES; POSITIVE MORPHOLOGY YES; Platelet Count 383 K/mm3 (150-450); RBC Distribution Width CV 16.9 % (11.6-14.6); Red Blood Count 2.27 M/mm3 (4.6-6.2)
[2023-09-10 13:52] LABS: AST(SGOT) 22 U/L (15-37); Alanine Aminotransfer ALT/SGPT 16 U/L (16-61); Albumin, Serum 3.1 g/dL (3.2-5.0); Alkaline Phosphatase 82 U/L (45-117); Anion Gap 6 (5-15); BUN 19 mg/dL (7-18); BUN/Creat Ratio 10.7 RATIO (10-20); Calcium,Total 7.9 mg/dL (8.5-10.1); Chloride 110 mmol/L (98-107); Cholesterol 108 mg/dL (200); Creatinine, Serum 1.77 mg/dL (0.70-1.30); EST Glomerular Filtration Rate 41 mL/min (>60); Est Glom Filt Rate - Afr Amer 49 mL/min (>60); Estimated Creatinine Clearance 40.67 ml/min; Glucose 98 mg/dL (74-106); High Density Lipoprotein 39 mg/dL; PSA,Total- Diagnostic 3.86 ng/mL (0.0-4.0); Potassium 4.2 mmol/L (3.5-5.1); Protein, Total 6.1 g/dL (6.4-8.2); Sodium Level 141 mmol/L (136-145); Triglycerides 120 mg/dL; Very Low Density Lipoprotein 24 mg/dL (5-40)
[2023-09-10 14:14] LABS: White Blood Count 31.1 K/mm3 (4.4-11.0)
[2023-09-10 14:15] LABS: Differential Indicated SCAN CRITERIA MET
[2023-09-10 14:52] LABS: Anisocytosis 1+; Atypical Lymphocyte 1+ %
[2023-09-10 15:29] VITALS: BP 156/76; PULSE 82; RESP 16
[2023-09-11 09:20] LABS: Pathologist Review Reviewed
== END 2023-09-10 23:59 | disposition home or self-care (01) ==
LOC: MEDOUTP 12:20
PROVIDERS: PCP Family Medicine Geriatric Medicine; Referring Provider Family Medicine Geriatric Medicine; Visit Provider Family Medicine Geriatric Medicine
DX: E86.0 Dehydration (principal); R97.20 Elevated prostate specific antigen [PSA]; I10 Essential (primary) hypertension; E78.5 Hyperlipidemia, unspecified; E55.9 Vitamin D deficiency, unspecified
CPT/HCPCS: 96360; 96361; 80053; 80061; 82306; 84153; 84443; 85025; J7030; A4216

== ENCOUNTER → 2023-09-23 | Outpatient (CLI) | payer MEDICARE, OTHER, SELFPAY ==
--- NOTE | 2023-09-23 17:00 | RAD_ITS ---
EXAM: XR CHEST, 2 VIEWS CLINICAL INDICATION: RIGHT SIDED CHEST PAIN TECHNIQUE: Frontal and lateral views of the chest. COMPARISON: August 08, 2003 FINDINGS: LUNGS AND PLEURAL SPACES: Heterogeneous airspace disease involving the lower lungs. Consider atelectasis versus aspiration/pneumonia. No significant pleural effusion or pneumothorax. HEART: Unremarkable. Cardiac silhouette not enlarged. MEDIASTINUM: Fullness of the cardiac silhouette and mediastinum. BONES/JOINTS: Degenerative changes of the spine. No acute fracture. No unusual lytic or sclerotic lesions of bone. SOFT TISSUES: Unremarkable. RAD/Chest PA and Lateral IMPRESSION: Heterogeneous airspace disease involving the lower lungs. Consider atelectasis versus aspiration/pneumonia in the appropriate clinical setting. Electronically Signed: Gustavo Russ MD at 23:05 EDT ,
== END | disposition home or self-care (01) ==
LOC: RAD 16:57
PROVIDERS: PCP Family Medicine Geriatric Medicine; Referring Provider Family Medicine Geriatric Medicine; Visit Provider Family Medicine Geriatric Medicine
DX: R07.9 Chest pain, unspecified (principal)
CPT/HCPCS: 71046

== ENCOUNTER → 2023-09-30 | Outpatient (CLI) | payer MEDICARE, OTHER, SELFPAY | END | disposition home or self-care (01) | LOC: PSN 13:03 | PROVIDERS: PCP Family Medicine Geriatric Medicine; Referring Provider Family Medicine Geriatric Medicine; Visit Provider Family Medicine Geriatric Medicine | DX: R68.83 Chills (without fever) (principal) | CPT/HCPCS: 87631 ==

== ENCOUNTER 2023-10-13 06:46 | Day surgery (SDC) | payer MEDICARE, OTHER, SELFPAY ==
[2023-10-10 07:30] VITALS: BMI 28.3
--- NOTE | 2023-10-13 10:53 | OP.PCM_ITS ---
Report of Operation Date of Procedure: 10/13/23 Pre-Operative Diagnosis: DVT, contraindication to anticoagulation Post-Operative Diagnosis: same Surgery/Procedure Performed:: insertion IVC filter Surgeon: Quentin Boyer Type of Anesthesia: Local and Sedation,Conscious Estimated Blood Loss (mL): 3 Description of Procedure: HPI: Patient is a 67-year-old male with history of deep venous thrombosis and prior GI bleeding as well as chronic anemia. He is seen by hematology for chronic lymphocytic leukemia as well as for care for his prior thrombotic events. He is referred for evaluation for possible filter placement and felt to be appropriate so he is taken now for elective filter placement. Description of procedure: Upon obtaining form consent and verification correct patient procedure site patient taken to the [facility] [employer] where he was positioned prepped and draped in usual sterile fashion. Timeout was performed conscious sedation ministered Versed and fentanyl. Skin overlying the right internal jugular vein was anesthetized 1% lidocaine vessel accessed and ultrasound guidance with a micropuncture needle and wire. This then exchanged for micropuncture sheath through which a glide wire was advanced which was then used to navigate the superior vena cava, crossing the atrium and into the inferior vena cava. Micropuncture sheath was then exchanged for a pigtail catheter which was advanced and then the inferior vena cava and a digital subtraction venacavogram performed revealing normal caliber cava with no thrombus. This also revealed the position of the renal vein confluence is with the left being the lowest. A [employer] wire was then advanced through the pigtail catheter and the catheter exchange for the Cook filter delivery sheath which was advanced over the wire and positioned in the inferior vena cava. Dilator and wire were then withdrawn and a Cook Celect inferior vena cava filter was then advanced and deployed inferior to the left renal vein. Completion venacavogram was then performed with satisfactory positioning with no extravasation, dissection, or significant tilt. Sheath was then withdrawn and manual pressure held until hemostasis was obtained. Patient was then taken the recovery room for bedrest prior to discharge to home.
== END 2023-10-13 12:45 | disposition home or self-care (01) ==
PROVIDERS: PCP Family Medicine Geriatric Medicine; Referring Provider Surgery Trauma Surgery; Visit Provider Surgery Trauma Surgery
DX: I82.401 Acute embolism and thrombosis of unspecified deep veins of right lower extremity (principal); C91.10 Chronic lymphocytic leukemia of B-cell type not having achieved remission; N18.30 Chronic kidney disease, stage 3 unspecified; G47.33 Obstructive sleep apnea (adult) (pediatric); Z86.718 Personal history of other venous thrombosis and embolism; Z79.01 Long term (current) use of anticoagulants; Z79.899 Other long term (current) drug therapy; Z79.51 Long term (current) use of inhaled steroids; Z86.711 Personal history of pulmonary embolism; Z87.891 Personal history of nicotine dependence
CPT/HCPCS: 37191; 76937; 99152; 99153; C1769; C1880; C1894; J7040; Q9967

== ENCOUNTER → 2023-10-14 | Outpatient (CLI) | payer MEDICARE, OTHER, SELFPAY ==
--- NOTE | 2023-10-14 13:05 | CDU_ITS ---
Reason For Study: Carotid Artery Bruits Rt. Velocities/BP Lt. Velocities/BP Prox CCA 35.1/8.9 cm/sec. Prox CCA 62.9/15.7 cm/sec. Mid CCA 38.9/11.9 cm/sec. Mid CCA 61.3/18.3 cm/sec. Dist CCA 35.6/8.4 cm/sec. Dist CCA 45.3/11.3 cm/sec. Prox ICA 28.0/6.0 cm/sec. Prox ICA 34.6/9.7 cm/sec. Mid ICA 57.2/12.7 cm/sec. Mid ICA 63.3/21.5 cm/sec. Dist ICA 51.1/15.5 cm/sec. Dist ICA 44.9/15.7 cm/sec. Rt. ICA/CCA = 1.5. Lt. ICA/CCA = 1.0. Prox ECA 53.4/8.5 cm/sec. Prox ECA 55.2/10.4 cm/sec. Rt. Vert. 40.3/11.8 cm/sec. Lt. Vert. 56.3/22.3 cm/sec. Right Extracranial There is intimal thickening but no significant atherosclerotic plaque noted in the right common carotid artery. There is heterogeneous, irregular atherosclerotic plaque noted in the right internal carotid artery. There is heterogeneous, irregular atherosclerotic plaque noted in the right external carotid artery. Antegrade flow is noted in the right vertebral artery. Left Extracranial There is heterogeneous, irregular atherosclerotic plaque noted in the left common carotid artery. There is heterogeneous, irregular atherosclerotic plaque noted in the left internal carotid artery. There is heterogeneous, irregular atherosclerotic plaque noted in the left external carotid artery. Antegrade flow is noted in the left vertebral artery. Procedure Carotid Duplex [id number]. This is a Carotid Duplex examination using B-mode, color flow and specral Doppler. The exam was diagnostic. Exam performed in department. VL/Carotid Duplex Ultrasound Interpretation Summary Mild (<50%) stenosis right extracranial internal carotid. Mild (<50%) stenosis left extracranial internal carotid. Patent and antegrade vertebrals bilaterally. Ordering Physician: Monisha Edmonds Referring Physician: Leighton Orozco Chi Performed By: Steve Harris RVT
--- NOTE | 2023-10-14 13:05 | ART_ITS ---
Reason For Study: Claudication Procedure A bilateral lower extremity continuous wave Doppler with analog waveform analysis,segmental pressures,and ankle brachial indexes without exercise. Left Segmental Pressures Left brachial= 158mmHg. Left calf = 160mmHg. Left posterior tibial artery = 138mmHg. Left dorsalis pedis artery = 152mmHg. Left digit = 80 mmHg. The left posterior tibial artery waveforms are triphasic. The left dorsalis pedis waveforms are triphasic. Right Segmental Pressures Right brachial= 146mmHg. Right thigh = 97mmHg. Right calf = 106mmHg. Right posterior tibial artery = 126mmHg. Right dorsalis pedis artery = 116mmHg. Right digit = 52 mmHg. The right posterior tibial artery waveforms are biphasic. The right dorsalis pedis waveforms are biphasic. Indices The right ankle brachial index by the posterior tibial artery is 0.80. The right ankle brachial index by the dorsalis pedis is 0.73. The right digital-brachial index is 0.33. The left ankle brachial index by the posterior tibial artery is 0.87. The left ankle brachial index by the dorsalis pedis is 0.96. The left digital-brachial index is 0.51. VL/Lower Ext Art Exam w/ Exercise Interpretation Summary Right RAMIN 0.8, moderate arterial insufficiency. Doppler/PVR waveforms and segme ntal pressures reveal [id number] femoral disease. Left RAMIN 0.96, mild arterial insufficiency. Doppler/PVR waveforms and segmental pressures do not reveal focal level of disease. Ordering Physician: Monisha Edmonds Referring Physician: Leighton Orozco Chi Performed By: Steve Harris RVT
== END | disposition home or self-care (01) ==
LOC: CVS 13:03
PROVIDERS: PCP Family Medicine Geriatric Medicine; Referring Provider Physician Assistant; Visit Provider Physician Assistant
DX: R09.89 Other specified symptoms and signs involving the circulatory and respiratory systems (principal); I73.9 Peripheral vascular disease, unspecified
CPT/HCPCS: 93880; 93924

== ENCOUNTER → 2023-10-20 | Outpatient (CLI) | payer MEDICARE, OTHER, SELFPAY ==
--- NOTE | 2023-10-20 14:50 | RAD_ITS ---
STUDY: X-RAY CHEST REASON FOR EXAM: Male, 67 years old. WHEEZING, PNEUMONIA TECHNIQUE: PA and lateral views of the chest. COMPARISON: 09/23/2023 FINDINGS: The lungs are clear and expanded. No change in right-sided pleural thickening. Normal size heart. Normal mediastinum and gavin. Normal visualized pulmonary arteries. Normal visualized aortic arch and descending thoracic aorta. Normal visualized thoracic spine. Normal visualized ribs, clavicles, and shoulders. There is no demonstrated abnormality of the visualized soft tissue structures of the upper abdomen. RAD/Chest PA and Lateral IMPRESSION: No change from 09/23/2023. Electronically Signed: Jerry Brannon MD at 15:28 EDT ,
== END | disposition home or self-care (01) ==
LOC: RAD 14:43
PROVIDERS: PCP Family Medicine Geriatric Medicine; Referring Provider Family Medicine Geriatric Medicine; Visit Provider Family Medicine Geriatric Medicine
DX: J18.9 Pneumonia, unspecified organism (principal); R06.2 Wheezing
CPT/HCPCS: 71046

== ENCOUNTER 2023-10-23 11:51 | Outpatient (CLI) | payer MEDICARE, OTHER, SELFPAY ==
[2023-10-23] MEDS: 0.9% Normal Saline (1000mL) 1,000 ML 999 ML IV ×2 (12:19→13:44)
[2023-10-23] MEDS: 0.9% NaCl Peripheral Flush Adult/Peds IV (12:21)
[2023-10-23 12:22] VITALS: BP 131/84; PULSE 85; RESP 16; TEMP 36.1
== END 2023-10-23 23:59 | disposition home or self-care (01) ==
LOC: MEDOUTP 11:52
PROVIDERS: PCP Family Medicine Geriatric Medicine; Referring Provider Family Medicine Geriatric Medicine; Visit Provider Family Medicine Geriatric Medicine
DX: E86.0 Dehydration (principal)
CPT/HCPCS: 96360; 96361; J7030; A4216

== ENCOUNTER 2023-10-29 13:10 | Inpatient (IN) | payer MEDICARE, OTHER, SELFPAY ==
[2023-10-29] VITALS (13 sets, daily range): BP systolic 125–178; BP diastolic 51–116; PULSE 60–114; RESP 14–24; TEMP 36.5–37.2; O2SAT 95–99; BMI 25.4; BMI 27.0
--- NOTE | 2023-10-29 13:43 | EKG12_ITS ---
Test Reason : STROKE TEAM Blood Pressure : / mmHG Vent. Rate : 102 BPM Atrial Rate : 102 BPM P-R Int : 136 ms QRS Dur : 096 ms QT Int : 364 ms P-R-T Axes : 000 -57 054 degrees QTc Int : 474 ms Sinus tachycardia with Premature atrial complexes Left axis deviation Abnormal ECG Confirmed by DONTA COLINDRES, PETRONA ([id number]), editor house organ COSTA MILLARD ([id number]) on 10/30/2023 12:59:14 PM Referred By: Confirmed By:PETRONA LONGO MD
--- NOTE | 2023-10-29 13:43 | CT_ITS ---
We are attempting to reach an attending provider to discuss findings. An addendum with communication details will be sent when the communication is complete. STUDY: CT BRAIN WITHOUT CONTRAST REASON FOR EXAM: Male, 68 years old. Neuro deficit, acute, stroke suspected RADIATION DOSAGE (If Supplied By Facility): CTDIvol = ( ) mGy, DLP = ( ) mGycm TECHNIQUE: Transaxial CT imaging of the brain was performed without administration of intravenous contrast material. Individualized dose optimization techniques were used for this CT. COMPARISON: No relevant priors. FINDINGS: Normal soft tissue structures. Normal calvarium. There is mild cerebral atrophy with widening of the extra-axial spaces and ventricular dilatation. There are areas of decreased attenuation within the white matter tracts of the supratentorial brain, consistent with microvascular disease changes. There are small punctate calcifications of the basal ganglia which are seen in the aging brain as a normal variant. Normal brainstem. Normal cerebellum. There is no intracranial hemorrhage. There are no findings of an acute ischemic infarction. Mucosal thickening of the left maxillary sinus consistent with chronic sinusitis. CT/STROKE Brain/Head without Cont IMPRESSION: Chronic involutional changes of the brain. Electronically Signed: Jerry Brannon MD at 14:11 EDT ,
--- NOTE | 2023-10-29 13:47 | ED.RN ---
NO OLD EKGS
[2023-10-29 13:54] LABS: Absolute Lymphocyte Count 39.47 X10^3/uL (0.83-4.51); Basophil# 0.09 X10^3/uL; Basophil% 0.2 % (0-1); Eosinophil# 0.01 X10^3/uL; Hematocrit 31.9 % (40-54); Hemoglobin 10.2 g/dL (13.0-16.5); Lymphocyte # 39.47 X10^3/ul (0.83-4.51); Lymphocyte % 82.3 % (19-41); Mean Corpuscular Volume 134.6 fL (80-94); Mean Platelet Vol. 9.7 fl (6.2-12.0); Monocyte# 6.21 X10^3/uL; Monocyte% 12.9 % (0-10); NRBC Flagged by Analyzer 0.1 % (0-5); Neutrophil # 1.98 X10^3/uL (2.7-7.7); Neutrophil % 4.2 % (47-70); POSITIVE COUNT YES; POSITIVE DIFFERENTIAL YES; POSITIVE MORPHOLOGY YES; Platelet Count 300 K/mm3 (150-450); RBC Distribution Width CV 19.6 % (11.6-14.6); RBC Distribution Width SD 98.2 fl (35.1-43.9); Red Blood Count 2.37 M/mm3 (4.6-6.2)
[2023-10-29 13:58] LABS: Differential Indicated SCAN CRITERIA MET
[2023-10-29 14:02] LABS: International Normalized Ratio 1.4
[2023-10-29 14:03] LABS: Partial Thromboplast Time 25.3 Seconds (24.1-36.2)
--- NOTE | 2023-10-29 14:07 | CT_ITS ---
STUDY: CTA HEAD AND NECK WITH CONTRAST REASON FOR EXAM: Male, 68 years old. new stroke symptoms-expressive aphasia RADIATION DOSAGE (If Supplied By Facility): CTDIvol = ( 26.58 ) mGy, DLP = ( 791.55 ) mGycm TECHNIQUE: CT angiography was performed with a multi-detector CT scanner. Data acquisition was obtained from the skull base through the vertex following intravenous administration of IV 100mL [id number]-[id number]. MIP images were reconstructed from the axial data set. Post-processing of the angiographic images was performed, with multiplanar reformation and 3D reconstruction. Individualized dose optimization techniques were used for this CT. COMPARISON: No relevant priors. FINDINGS: Normal bilateral petrous carotid arteries. There is calcified plaque formation of the right cavernous carotid artery, without a cross-sectional luminal stenosis. There is calcified plaque formation of the left cavernous carotid artery, without a cross-sectional luminal stenosis. There is hypoplastic development of the right A1 segment of the anterior cerebral arteries with an atretic but intact artery. Normal left A1 segments of the anterior cerebral artery. Normal intact anterior communicating artery (ACOM). Normal bilateral A2 segments of the anterior cerebral arteries. Normal right M1 and M2 segments of the middle cerebral arteries, with a normal M1 bifurcation. Normal left M1 and M2 segments of the middle cerebral arteries, with a normal M1 bifurcation. There is a persistent origin of the right posterior cerebral artery with absence of the posterior communicating artery (PCOM). Normal left posterior communicating artery (PCOM). Normal bilateral vertebral arteries. Normal basilar artery with a normal basilar bifurcation. The visualized bilateral superior cerebellar (SCA) arteries are normal. Normal bilateral P1, P2 and visualized P3 segments of the posterior cerebral arteries. There is no demonstrated aneurysm of the [place]. There is no demonstrated abnormality of the visualized brain. AORTIC ARCH: Normal visualized aortic arch. Normal origins of the brachiocephalic, left common carotid, and left subclavian arteries. RIGHT CAROTID ARTERIES: Normal right common carotid artery (CCA). There is mild atherosclerotic plaque formation with minimal narrowing of the right carotid bulb. There is mild atherosclerotic plaque formation of the origin of the right internal carotid artery with less than 50% cross sectional diameter stenosis. There is atherosclerotic tortuous elongation of the cervical portion of the right internal carotid artery. Normal origin of the right external carotid artery (ECA). LEFT CAROTID ARTERIES: Normal left common carotid artery (CCA). There is moderate atherosclerotic plaque formation with moderate narrowing of the carotid bulb. There is moderate atherosclerotic plaque formation of the origin of the left internal carotid artery with an estimated stenosis of 50-69% stenosis. Normal visualized cervical portion of the left internal carotid artery. Normal origin of the left external carotid artery (ECA). VERTEBRAL ARTERIES: Normal bilateral vertebral arteries. CT/CTA Head AND Neck W/ Contrast IMPRESSION: Normal CTA Head with contrast. Mild (40%) stenosis right carotid stenosis. Moderate (60%) (left carotid stenosis. Patent vertebral arteries bilaterally. Electronically Signed: Jerry Brannon MD at 15:10 EDT ,
--- NOTE | 2023-10-29 14:10 | RAD_ITS ---
STUDY: X-RAY CHEST REASON FOR EXAM: Male, 68 years old. Neuro deficit, acute, stroke suspected TECHNIQUE: Single AP portable view of the chest. COMPARISON: 10/20/2023 FINDINGS: The lungs are clear and expanded. There is no demonstrated pleural abnormality. Normal size heart. Normal mediastinum and gavin. Normal visualized pulmonary arteries. Normal visualized aortic arch and descending thoracic aorta. Normal visualized thoracic spine. Normal visualized ribs, clavicles, and shoulders. There is no demonstrated abnormality of the visualized soft tissue structures of the upper abdomen. RAD/Chest 1 View IMPRESSION: Normal x-ray examination of the chest. Electronically Signed: Jerry Brannon MD at 14:22 EDT ,
[2023-10-29 14:21] LABS: Bedside Glucose 97 mg/dL (74-106)
[2023-10-29 14:29] LABS: Platelet Estimate ADEQUATE (ADEQ)
[2023-10-29 14:47] LABS: Anion Gap 12 (5-15); BUN 31 mg/dL (7-18); Calcium,Total 5.8 mg/dL (8.5-10.1); Chloride 108 mmol/L (98-107); Creatinine, Serum 1.72 mg/dL (0.70-1.30); EST Glomerular Filtration Rate 42 mL/min (>60); Est Glom Filt Rate - Afr Amer 51 mL/min (>60); Estimated Creatinine Clearance 41.26 ml/min; Glucose 96 mg/dL (74-106); Potassium 4.1 mmol/L (3.5-5.1); Sodium Level 141 mmol/L (136-145); Troponin-I HS 33 pg/mL (3.0-78.0)
--- NOTE | 2023-10-29 14:51 | CM.ED ---
Addendum entered by Janie Robb 10/29/23 16:48: Tying error: Discharged from TCU in January 2023 Original Note: Social Work SW responded to ED Stroke Alert. Pt present in the ED for another reason when stroke-like symptoms began. Dtr at bedside. Dr speaking with dtr and pt was in imaging when this worker arrived. SW introduced self and role to dtr, however, pt and dtr known to this worker. Dtr remembered this worker and immediately embraced this worker. Dtr became emotional. SW provided emotional support. Supportive listening provided to dtr as she explained pt's LKW. Dtr appeared distressed and overwhelmed. Dtr explained pt had been doing well since he had been DCd in January 2023 through May 2023. Pt went on vacation with dtr and that went well. Dtr stated recently pt has some medical changes, feeling unsteady, etc. Dtr checks in on patient almost daily. Dtr and pt were together celebrating pt's birthday two days ago and pt was fine. Pt has been seeing his Drs as ordered and taking medications as prescribed. Pt returned to room and medical staff joined pt. [facility] neurologist evaluated pt. [facility] explained to dtr the outcome of evaluation and testing thus far. YUMIKO remained at bedside with pt and dtr, assisting in providing explanation for pt/dtr to better understand information. Dtr remained emotional and expressed appreciation for this worker's support and assistance. Pt to receive more testing and will await results. After continued listening and support, dtr stabilized; pt requesting to rest. Dtr agreeable for SW to return once results are known. SW provided dtr with contact information if needed. Dtr appreciative. -- YUMIKO notified by nursing that pt's results have been received. YUMIKO returned to pt's room and provided support to dtr during Dr explanation. Dr will be admitting pt to acute hospital for continued testing and monitoring. YUMIKO educated to unit social media executive or child support case officer to follow through with care needs. Dtr and pt expressed appreciation. Janie Robb, [employer]PRES[employer]
--- NOTE | 2023-10-29 14:52 | EX.ED.DYSGE1 ---
HPI History of Present Illness Chief Complaint: General Illness Informant: patient and family Narrative Narrative: Patient is a 68-year-old male with significant past medical history including coronary artery disease with stents (follows with Dr. Guidry at [facility]), pulmonary fibrosis (follows with Dr. Milner at [facility]) CLL, 1 kidney, recent insertion IVC filter and recent pneumonia on antibiotics as well as PE on chronic Xarelto presenting with right-sided headache, right-sided numbness and then sudden onset of trouble speaking. Patient has been complaining of headache since at least this morning per his daughters at the bedside. He drove himself to his daughter's house today and then they went to palliative care meeting. She then started noticing intermittent speech changes. She decided bring him to the emergency room for further evaluation. In the emergency room patient suddenly had garbled and confused speech. Patient's daughter came out of the room and found me and I immediately went in to evaluate the patient. Patient currently has a hard time telling me how long symptoms are going on. She last saw him 2 days ago when he was normal. She states his speech was normal when she saw him earlier today but it has gotten worse progressively since then. [facility] Medical History Recurrent deep vein thrombosis (DVT) Depressive disorder due to another medical condition with depressive features History of pulmonary embolism History of DVT (deep vein thrombosis) Iron deficiency anemia due to chronic blood loss Emphysema lung Dyslipidemia Multiple lipomas History of elevated PSA BPH (benign prostatic hyperplasia) AVM (arteriovenous malformation) of colon Chronic GI bleeding Diverticular disease History of skin cancer Multiple lung nodules Cancer of kidney Essential thrombocythemia Hydrocele Femur fracture (~2020) Pulmonary fibrosis Pulmonary embolism DVT (deep venous thrombosis) Obstructive sleep apnea Coronary artery disease CLL (chronic lymphocytic leukemia) Rhodes esophagus COPD (chronic obstructive pulmonary disease) Home Medications ?Medication ?Instructions ?Recorded ?Last Taken ?Type acetaminophen 325 mg capsule 650 mg PO Q4H Pain 12/26/22 10/13/23 History (Tylenol) albuterol sulfate 90 mcg/actuation 1 inh inhalation Q6H PRN shortness 12/26/22 Unknown History aerosol inhaler of breath or wheezing fluticasone fur. 200 mcg-umeclid 1 inh inhalation DAILY Allergies 12/26/22 10/13/23 History 62.5 mcg-vilant 25 mcg inhalat.powder (Trelegy Ellipta) omeprazole 40 mg capsule,delayed 40 mg PO DAILY GERD 12/26/22 10/13/23 History release zolpidem 5 mg tablet 10 mg PO QHS PRN PRN sleep 12/26/22 Unknown History escitalopram oxalate 5 mg tablet 5 mg PO DAILY 01/30/23 10/13/23 History (Lexapro) ascorbic acid (vitamin C) 500 mg 500 mg PO DAILY 02/06/23 Unknown History tablet magnesium oxide 400 mg PO DAILY 02/06/23 Unknown History ergocalciferol (vitamin D2) 1,250 50,000 unit PO QMONTH 08/19/23 Unknown History mcg (50,000 unit) capsule evolocumab 140 mg/mL subcutaneous 140 mg subcut QMONTH 08/19/23 Unknown History pen injector (Kenji Hennessy) ondansetron HCl 8 mg tablet 8 mg PO Q8H PRN nausea and 08/19/23 10/13/23 Rx vomiting #30 tabs valacyclovir 1 gram tablet 1,000 mg PO DAILY PRN Check with 08/19/23 Unknown History primary Doctor hydroxyurea 500 mg capsule 1,500 mg PO DAILY 10/07/23 Unknown History metoprolol tartrate 100 mg tablet 150 mg PO DAILY BP 10/07/23 10/13/23 History rivaroxaban 20 mg tablet (Xarelto) 10 mg PO DAILY 10/07/23 Unknown History calcitriol 0.25 mcg capsule 0.25 mcg PO DAILY 10/23/23 Unknown History Allergy/AdvReac Type Severity Reaction Status Date / Time Penicillins Allergy PT UNSURE Verified 10/29/23 13:11 OF REACTION doxycycline AdvReac Unknown Upset Verified 10/29/23 13:11 Stomach Family History Father Myocardial infarction Mother Colon cancer Surgical History History of heart artery stent (~2018) History of hernia surgery (~2021) H/O kidney removal (~2017) History of bowel resection Hx of tonsillectomy Social History household members: none Smoking Status: Former smoker pack-years: 10 alcohol intake: never substance use type: does not use, former substance user and other details: marijuana ROS ROS ED Review of Systems ROS Unobtainable: due to mental status EXAM Physical Exam Const Vital Signs: 10/29/23 13:11 10/29/23 13:32 10/29/23 13:40 Temperature 97.7 F L Temperature Source Temporal Pulse Rate 87 101 H Respiratory Rate 20 H 20 H Respiratory Effort Labored Respiratory Pattern Tachypnea Blood Pressure 132/100 H 125/67 H Blood Pressure Mean 110 86 Pulse Ox 98 98 Oxygen Delivery Method Room Air 10/29/23 13:48 10/29/23 14:13 10/29/23 14:30 Temperature 98.9 F Temperature Source Temporal Pulse Rate 92 88 Respiratory Rate 16 16 Respiratory Effort Respiratory Pattern Blood Pressure 142/61 H 138/51 H Blood Pressure Mean 88 80 Pulse Ox 99 98 98 Oxygen Delivery Method Room Air Room Air Room Air 10/29/23 14:59 10/29/23 15:10 10/29/23 15:30 Temperature 98.1 F 98.1 F Temperature Source Oral Oral Pulse Rate 85 83 87 Respiratory Rate 16 18 18 Respiratory Effort Respiratory Pattern Blood Pressure 158/95 H 178/113 H 165/116 H Blood Pressure Mean 116 134 132 Pulse Ox 97 97 96 Oxygen Delivery Method Room Air Room Air Room Air 10/29/23 16:00 10/29/23 16:30 Temperature 98.0 F 97.8 F Temperature Source Oral Temporal Pulse Rate 92 83 Respiratory Rate 24 H 14 Respiratory Effort Respiratory Pattern Blood Pressure 157/103 H 153/83 H Blood Pressure Mean 121 106 Pulse Ox 98 97 Oxygen Delivery Method Room Air Room Air Positive well nourished and well developed General Appearance ED: well developed HEENT Reports TM's clear and moist mucous membranes Negative for trauma Tympanic Membrane ED: Yes TM's clear Eyes PERRL and EOMs intact bilaterally Neck supple Chest Wall inspection of chest normal Resp normal respiratory effort and clear to auscultation bilaterally Cardio regular rate and regular rhythm GI normal to inspection, nondistended, normoactive bowel sounds and non-tender Neuro no sensory deficits noted Neuro Narrative: Very subtle left facial droop present. Patient has expressive aphasia. See NIH below. Sensorium / Orientation: alert and orientation impaired Psych mental status grossly normal Skin no rashes or lesions noted and no wounds MDM MDM MDM Narrative Medical decision making narrative: Patient is evaluated for right-sided headache and while in the emergency room developed expressive aphasia. Stroke alert is called with this. He is not a TNK candidate as he is currently on Xarelto. CT of the brain does not show any acute intracranial hemorrhage. CTA of the head and neck does not show any large vessel occlusion. Patient does have multiple laboratory normalities but these are chronic and consistent with his CLL including significant leukocytosis (48,000), chronic and tightly improved anemia with a hemoglobin of 10.5 and normal platelets. Creatinine is at his baseline at 1.72. He is hypokalemic with a calcium of 5.8. Case is discussed with stroke teleneurology who will agrees with no TNK and as long as he does not have large vessel occlusion can be admitted to our hospital for further stroke workup. On repeat evaluation in the emergency room patient expressive aphasia has improved and his neurologic symptoms have resolved. He also notes his headache has improved. He did not receive treatment for this headache. Case is discussed with the patient's oncologist, Dr. Grimes, who states that his oncologic/hematologic issues are chronic and stable. He does not think they are contributing to his presentation today. He recommends continued oral calcium replacement for his hypocalcemia. Case to be discussed with main physician, Dr. Chapman. Patient and daughter agreeable and understand this plan of care. Only in the ER patient did have runs of PACs versus questionable A-fib however this was not captured on telemetry strip or EKG. Lab Data Attestation: I reviewed the patient's lab results. Labs: Laboratory Results - last 24 hr 10/29/23 10/29/23 13:30 13:40 WBC 48.0 H* RBC 2.37 L Hgb 10.2 L Hct 31.9 L MCV 134.6 H MCH 43.0 H MCHC 32.0 RDW Std Deviation 98.2 H RDW Coeff of Susan 19.6 H Plt Count 300 MPV 9.7 Immature Gran % (Auto) 0.400 Neut % (Auto) 4.2 L Lymph % (Auto) 82.3 H Harper % (Auto) 12.9 H Eos % (Auto) 0.0 Baso % (Auto) 0.2 Absolute Neuts (auto) 2.0 Absolute Lymphs (auto) 39.47 H Nucleated RBC % 0.1 Differential Comment Diff Path Review May foll Platelet Estimate ADEQUATE PT 17.0 H INR 1.4 APTT 25.3 Sodium 141 Potassium 4.1 Chloride 108 H Carbon Dioxide 21.0 Anion Gap 12 BUN 31 H Creatinine 1.72 H Estim Creat Clear Calc 41.26 Est GFR (MDRD) Af Amer 51 L Est GFR (MDRD) Non-Af 42 L BUN/Creatinine Ratio 18.0 Glucose 96 Calcium 5.8 L* Troponin I High Sens 33 POC Glucose 97 Radiography Chest X-Ray - ED: 1 View, Read by ED Physician, Read by Radiologist and No Acute Disease Diagnostic Testing: Clinical Impression(s) from Imaging Studies Brain CT 10/29/23 13:43 IMPRESSION: Chronic involutional changes of the brain. Electronically Signed: Jerry Brannon MD at 14:11 EDT Reading Location ID and State: [id number] Tel , Service support , ADDENDUM: 10/29/23 1419 IMPRESSION: Chronic involutional changes of the brain. N.B. : The above Results were Read Back by Jerry Brannon MD to Blessing Huff MD, and understanding confirmed on 10/29/2023 14:12:06 (ET). Electronically Signed: Jerry Brannon MD at 14:11 EDT Reading Location ID and State: [id number] / [employer] Tel , Service support , Head/Neck CTA 10/29/23 14:07 IMPRESSION: Normal CTA Head with contrast. Mild (40%) stenosis right carotid stenosis. Moderate (60%) (left carotid stenosis. Patent vertebral arteries bilaterally. Electronically Signed: Jerry Brannon MD at 15:10 EDT Reading Location ID and State: [id number] / [employer] Tel , Service support , Chest X-Ray 10/29/23 14:10 IMPRESSION: Normal x-ray examination of the chest. Electronically Signed: Jerry Brannon MD at 14:22 EDT , Rhythm Strip Rhythm Strip: Sinus Tach Rate: 102 Ectopy: None EKG Initial EKG: Attestation: I personally reviewed and interpreted this EKG as follows: Interpretation: Sinus Tachycardia Comments: Sinus tachycardia at a rate of 102 bpm with PACs Left axis deviation Normal intervals Normal ST segments Prior EKG tracings: not available for review Management Discussion w/another healthcare provider: Hospitalist, Area Coordinator and Radiologist Discharge Plan Triage Chief Complaint: General Illness ED Provider: Blessing Huff Dx/Rx/DC Orders Clinical Impression: Expressive aphasia, CLL (chronic lymphocytic leukemia), Stroke-like symptom, Hypocalcemia Prescriptions: No Action ascorbic acid (vitamin C) 500 mg tablet 500 mg PO DAILY escitalopram oxalate [Lexapro] 5 mg tablet 5 mg PO DAILY magnesium oxide 400 mg magnesium tablet 400 mg PO DAILY Xarelto 20 mg tablet 10 mg PO DAILY Rx Instructions: must administer with evening meal ondansetron HCl 8 mg tablet 8 mg PO Q8H PRN (Reason: nausea and vomiting) Qty: 30 4RF hydroxyurea 500 mg capsule 1,500 mg PO DAILY acetaminophen [Tylenol] 325 mg capsule 650 mg PO Q4H albuterol sulfate 90 mcg/actuation HFA aerosol inhaler 1 inh INHALATION Q6H PRN (Reason: shortness of breath or wheezing) Trelegy Ellipta 200-62.5-25 mcg blister with device 1 inh INHALATION DAILY Patient Comments: INHALE 1 PUFF BY MOUTH ONCE DAILY FOR 30 DAYS omeprazole 40 mg capsule,delayed release(DR/EC) 40 mg PO DAILY Patient Comments: TAKE 1 CAPSULE BY MOUTH ONCE DAILY zolpidem 5 mg tablet 10 mg PO QHS PRN PRN (Reason: sleep) valacyclovir 1 gram tablet 1,000 mg PO DAILY PRN (Reason: Check with primary Doctor) Patient Comments: TAKE 1 TABLET BY MOUTH TWICE DAILY FOR 2 DAYS NEEDED FOR COLD SORES metoprolol tartrate 100 mg tablet 150 mg PO DAILY ergocalciferol (vitamin D2) 1,250 mcg (50,000 unit) capsule 50,000 unit PO QMONTH Patient Comments: TAKE 1 CAPSULE BY MOUTH ONCE EVERY MONTH Repatha SureClick 140 mg/mL pen injector 140 mg SUBCUT QMONTH Patient Comments: INJECT 140 MG SUBCUTANEOUSLY ONCE EVERY MONTH calcitriol 0.25 mcg capsule 0.25 mcg PO DAILY Primary Care Provider: Leighton Orozco Chi Referrals: Leighton Orozco Chi, MD [Primary Care Provider] - Print Language: Citizen [place] Disposition Disposition: Acute Care Hospital [facility] NIHSS NIHSS 1a. Level of Consciousness: Alert; keenly responsive 1b. LOC Questions: Answers one question correctly. 1c. LOC Commands: Performs one task correctly. 2. Best Gaze: Normal 3. Visual: No visual loss 4. Facial Palsy: Minor paralysis (flattened nasolabial fold, asymmetry on smiling) 5a. Left Arm: No drift; arm holds 90 (or 45) degrees for full 10 seconds 5b. Right Arm: No drift; arm holds 90 (or 45) degrees for full 10 seconds 6a. Left Leg: No drift; leg holds 30-degree position for full 5 seconds 6b. Right Leg: No drift; leg holds 30-degree position for full 5 seconds 7. Limb Ataxia: Absent 8. Sensory: Normal; no sensory loss 9. Best Language: Warv-af-prjtdthl aphasia; 10. Dysarthria: Normal 11. Extinction and Inattention: No abnormality Total: 4 Stroke Questions Stroke Team Activated: Yes
--- NOTE | 2023-10-29 14:54 | CHAPLAIN ---
Type of Pastoral Visit ___ Initial Visit ___ Follow-up Visit ___ On-call Visit ___ General Patient Visit ___ Spiritual Assessment ___ Family Conference ___ Bereavement _x__ Rapid Response ___ Code Blue ___ Other (describe below) Pastoral Care Referral From ___ Patient ___ Family ___ Nurse ___ Physician ___ [employer]er ___ Manufacturing Business Analyst _x__ Other (describe below) Sacrament/Intervention ___ Active listening ___ Anointing ___ Druze ___ Bereavement ___ Communion ___ Ashlyn exploration ___ ___ Life review ___ Prayer ___ Reconciliation ___ Sacrament of Sick _x__ Supportive presence ___ Wedding ___ Other (describe below) Pastoral Comments responded to stroke alert in ED and patient was already in cat scan; daughter was in the room and our SW was intently listening and involved in giving support to her; introduced self to the daughter and offered support or care as desired to which there was no response; SW was continuing to give great care to the daughter
--- NOTE | 2023-10-29 18:05 | HP.PCM.HOS_ITS ---
HPI - General General Date of Admission: 10/29/23 Date of Service: 10/29/23 Chief Complaint: expressive aphasia. HPI Narrative ADINA DAVID, is a 68 M who presents with weakness. For the past 2 days, patient been having headache and just feeling weak. Presented to the emergency room and he had acute onset of expressive aphasia and feeling weak. Symptoms lasted anywhere from 20 to 40 minutes but completely resolved. Patient underwent a head CT and CTA of the head and neck showed no acute process. Though the head and neck CTA showed mild 40% stenosis of the right carotid and moderate 60% left carotid stenosis. Patient never had symptoms like that before. [facility] Medical History Recurrent deep vein thrombosis (DVT) Depressive disorder due to another medical condition with depressive features History of pulmonary embolism History of DVT (deep vein thrombosis) Iron deficiency anemia due to chronic blood loss Emphysema lung Dyslipidemia Multiple lipomas History of elevated PSA BPH (benign prostatic hyperplasia) AVM (arteriovenous malformation) of colon Chronic GI bleeding Diverticular disease History of skin cancer Multiple lung nodules Cancer of kidney Essential thrombocythemia Hydrocele Femur fracture (~2020) Pulmonary fibrosis Pulmonary embolism DVT (deep venous thrombosis) Obstructive sleep apnea Coronary artery disease CLL (chronic lymphocytic leukemia) Rhodes esophagus COPD (chronic obstructive pulmonary disease) Home Medications ?Medication ?Instructions ?Recorded ?Last Taken ?Type acetaminophen 325 mg capsule 650 mg PO Q4H Pain 12/26/22 10/13/23 History (Tylenol) albuterol sulfate 90 mcg/actuation 1 inh inhalation Q6H PRN shortness 12/26/22 Unknown History aerosol inhaler of breath or wheezing fluticasone fur. 200 mcg-umeclid 1 inh inhalation DAILY Allergies 12/26/22 10/13/23 History 62.5 mcg-vilant 25 mcg inhalat.powder (Trelegy Ellipta) omeprazole 40 mg capsule,delayed 40 mg PO DAILY GERD 12/26/22 10/13/23 History release zolpidem 5 mg tablet 10 mg PO QHS PRN PRN sleep 12/26/22 Unknown History escitalopram oxalate 5 mg tablet 5 mg PO DAILY 01/30/23 10/13/23 History (Lexapro) ascorbic acid (vitamin C) 500 mg 500 mg PO DAILY 02/06/23 Unknown History tablet magnesium oxide 400 mg PO DAILY 02/06/23 Unknown History ergocalciferol (vitamin D2) 1,250 50,000 unit PO QMONTH 08/19/23 Unknown History mcg (50,000 unit) capsule evolocumab 140 mg/mL subcutaneous 140 mg subcut QMONTH 08/19/23 Unknown History pen injector (tessyazan SchultzVinodbang) ondansetron HCl 8 mg tablet 8 mg PO Q8H PRN nausea and 08/19/23 10/13/23 Rx vomiting #30 tabs valacyclovir 1 gram tablet 1,000 mg PO DAILY PRN Check with 08/19/23 Unknown History primary Doctor hydroxyurea 500 mg capsule 1,500 mg PO DAILY 10/07/23 Unknown History metoprolol tartrate 100 mg tablet 150 mg PO DAILY BP 10/07/23 10/13/23 History rivaroxaban 20 mg tablet (Xarelto) 10 mg PO DAILY 10/07/23 Unknown History calcitriol 0.25 mcg capsule 0.25 mcg PO DAILY 10/23/23 Unknown History Allergy/AdvReac Type Severity Reaction Status Date / Time Penicillins Allergy PT UNSURE Verified 10/29/23 13:11 OF REACTION doxycycline AdvReac Unknown Upset Verified 10/29/23 13:11 Stomach Family History Father Myocardial infarction Mother Colon cancer Surgical History History of heart artery stent (~2018) History of hernia surgery (~2021) H/O kidney removal (~2017) History of bowel resection Hx of tonsillectomy Social History household members: none Smoking Status: Former smoker pack-years: 10 alcohol intake: never substance use type: does not use, former substance user and other details: marijuana ROS ROS Narrative Patient does get fullness in his right ear. Recently had a right ear infection and feels that he is cut to try to pop his eardrum. All review of systems were negative except as mentioned above in the history of present illness and the other review of systems. Vital Signs Vital Signs Vital Signs: 10/29/23 13:11 10/29/23 13:32 10/29/23 13:40 Temperature 36.5 C L Temperature Source Temporal Pulse Rate 87 101 H Respiratory Rate 20 H 20 H Respiratory Effort Labored Respiratory Pattern Tachypnea Blood Pressure 132/100 H 125/67 H Blood Pressure Mean 110 86 Blood Pressure Source Blood Pressure Position Blood Pressure Location Pulse Ox 98 98 Oxygen Delivery Method Room Air 10/29/23 13:48 10/29/23 14:13 10/29/23 14:30 Temperature 37.2 C Temperature Source Temporal Pulse Rate 92 88 Respiratory Rate 16 16 Respiratory Effort Respiratory Pattern Blood Pressure 142/61 H 138/51 H Blood Pressure Mean 88 80 Blood Pressure Source Blood Pressure Position Blood Pressure Location Pulse Ox 99 98 98 Oxygen Delivery Method Room Air Room Air Room Air 10/29/23 14:59 10/29/23 15:10 10/29/23 15:30 Temperature 36.7 C 36.7 C Temperature Source Oral Oral Pulse Rate 85 83 87 Respiratory Rate 16 18 18 Respiratory Effort Respiratory Pattern Blood Pressure 158/95 H 178/113 H 165/116 H Blood Pressure Mean 116 134 132 Blood Pressure Source Blood Pressure Position Blood Pressure Location Pulse Ox 97 97 96 Oxygen Delivery Method Room Air Room Air Room Air 10/29/23 16:00 10/29/23 16:30 10/29/23 17:00 Temperature 36.7 C 36.6 C Temperature Source Oral Temporal Pulse Rate 92 83 97 Respiratory Rate 24 H 14 24 H Respiratory Effort Respiratory Pattern Blood Pressure 157/103 H 153/83 H 146/83 H Blood Pressure Mean 121 106 104 Blood Pressure Source Blood Pressure Position Blood Pressure Location Pulse Ox 98 97 97 Oxygen Delivery Method Room Air Room Air Room Air 10/29/23 17:00 10/29/23 17:51 Temperature 36.6 C Temperature Source Temporal Pulse Rate 114 H 60 Respiratory Rate 20 H 18 Respiratory Effort Respiratory Pattern Blood Pressure 146/83 H 148/96 H Blood Pressure Mean 104 113 Blood Pressure Source Monitor Blood Pressure Position Semi-Fowlers Blood Pressure Location Left Arm Pulse Ox 98 95 Oxygen Delivery Method Room Air Room Air Weight Weight: 85.5 kg Body Mass Index (BMI) 27.0 Physical Exam Narrative - Physical Exam General: Alert, Oriented x3, Cooperative HEENT: Atraumatic, PERRLA, EOMI, Normocephalic. Eardrums evaluated and showed no evidence of any fluid nor any erythema involving the tympanic membrane. Appears to be may be some scarring of his right tympanic membrane but not visualized on the left. Oral: Moist Mucosa, No Gingival or Mucosal Lesions/ Ulcerations Neck: Supple, No JVD, Negative Carotid Bruits Lungs: Clear to auscultation, Normal air movement Cardiovascular: Regular rate, Normal S1, Normal S2, No murmurs Abdomen: Bowel Sounds Present, Soft, Non Tender, Non-Distended, No Hepato- splenomegaly Extremities: No clubbing, No cyanosis, No edema, Capillary Refill Less than 3 Seconds Skin: No rashes, No breakdown Musculoskeletal: No Tenderness to Palpation of Joints or Extremities Neurological: Neuro grossly intact Psych/Mental Status: Normal Affect, Appropriate Results Lab / Micro Data Attestation: I reviewed the patient's lab results. 10/29/23 13:30 10/29/23 13:30 Labs: Laboratory Results - last 24 hr 10/29/23 13:30: WBC 48.0 H*, RBC 2.37 L, Hgb 10.2 L, Hct 31.9 L, MCV 134.6 H, M CH 43.0 H, MCHC 32.0, RDW Std Deviation 98.2 H, RDW Coeff of Susan 19.6 H, Plt Count 300, MPV 9.7, Immature Gran % (Auto) 0.400, Neut % (Auto) 4.2 L, Lymph % (Auto) 82.3 H, Butler % (Auto) 12.9 H, Eos % (Auto) 0.0, Baso % (Auto) 0.2, Absolute Neuts (auto) 2.0, Absolute Lymphs (auto) 39.47 H, Nucleated RBC % 0.1, Differential Comment , Diff Path Review May foll, Platelet Estimate ADEQUATE, PT 17.0 H, INR 1.4, APTT 25.3, Sodium 141, Potassium 4.1, Chloride 108 H, Carbon Dioxide 21.0, Anion Gap 12, BUN 31 H, Creatinine 1.72 H, Estim Creat Clear Calc 41.26, Est GFR (MDRD) Af Amer 51 L, Est GFR (MDRD) Non-Af 42 L, BUN/Creatinine Ratio 18.0, Glucose 96, Calcium 5.8 L*, Troponin I High Sens 33 10/29/23 13:40: POC Glucose 97 Rhythm Strip Rhythm Strip: Sinus Tach (PACs) Rate: 102 Ectopy: None Imaging Radiology Impression Brain CT 10/29/23 13:43 IMPRESSION: Chronic involutional changes of the brain. Electronically Signed: Jerry Brannon MD at 14:11 EDT Reading Location ID and State: [id number] / [employer] Tel , Service support , ADDENDUM: 10/29/23 1419 IMPRESSION: Chronic involutional changes of the brain. N.B. : The above Results were Read Back by Jerry Brannon MD to Blessing Huff MD, and understanding confirmed on 10/29/2023 14:12:06 (ET). Electronically Signed: Jerry Brannon MD at 14:11 EDT Reading Location ID and State: [id number] / [employer] Tel , Service support , Head/Neck CTA 10/29/23 14:07 IMPRESSION: Normal CTA Head with contrast. Mild (40%) stenosis right carotid stenosis. Moderate (60%) (left carotid stenosis. Patent vertebral arteries bilaterally. Electronically Signed: Jerry Brannon MD at 15:10 EDT Reading Location ID and State: [id number] / [employer] Tel , Service support , Chest X-Ray 10/29/23 14:10 IMPRESSION: Normal x-ray examination of the chest. Electronically Signed: Jerry Brannon MD at 14:22 EDT Reading Location ID and State: [id number] / [employer] Tel , Service support , Assessment & Plan Assessment/Plan (1) TIA (transient ischemic attack): (2) Hypocalcemia: PLAN: Plan Transient ischemic attack * Patient had expressive aphasia as well as his generalized weakness. The symptoms have completely resolved at this time. * Plan is to continue with a stroke workup with an MRI of the brain, echocardiogram and therapy evaluations. Patient already on rivaroxaban for VTE. Telemetry showing very frequent PACs but no overt atrial fibrillation. * Will add aspirin Hypocalcemia * This has been a chronic problem for the patient. * Will give 1 g of calcium gluconate. Check magnesium. Chronic right ear pain * No active infection at this time. This seems to have started after recent right ear infection. * Supportive management at this time. Chronic conditions * VTE: Continue with rivaroxaban. Patient does have an IVC filter. Patient does have a history of GI bleeds which sometimes his anticoagulation does have to be discontinued. * Hypertension: Hold off on his metoprolol for now in light of the TIA. Resume tomorrow afternoon. * CLL: Follow-up with oncology as outpatient. VTE prophylaxis: Not indicated as patient is already anticoagulated. Charges/Coding Visit Charges Inpatient E&M: 44402 Init Hosp L3
--- NOTE | 2023-10-29 18:17 | ECHOD_ITS ---
Reason For Study: TIA/CVA Procedure This was a 2D Doppler, Color Flow transthoracic echocardiogram. Exam performed in department. Left Ventricle Normal left ventricle. Moderate concentric left ventricular hypertrophy. The left ventricular ejection fraction is 45 %. There is mild global hypokinesis of the left ventricle. Right Ventricle Normal RV size. Normal systolic function. Atria Normal left atrium. Normal right atrium. Mitral Valve Normal mitral valve. Tricuspid Valve Normal tricuspid valve. Aortic Valve Trisinus/trileaflet aortic valve. Pulmonic Valve The pulmonic valve is not well visualized. Great Vessels Normal aortic root. The pulmonary artery is normal size. Normal inferior vena cava. Pericardium/Pleural No pericardial effusion. MMode/2D Measurements & Calculations LVIDd: 5.1 cm IVSd: 1.4 cm Ao root diam: 3.9 cm LVIDs: 3.8 cm LVPWd: 1.6 cm FS: 25.9 % LAV(MOD-bp): 60.0 ml LVAd ap4: 35.9 cm2 SV(MOD-sp4): 60.4 ml LAV(MOD-bp) Indexed: 29.5 ml/m2 LVLd ap4: 8.9 cm LAV(MOD-sp2): 53.2 ml EDV(MOD-sp4): 122.3 ml LAV(MOD-sp4): 58.7 ml EDV(sp4-el): 122.8 ml LVAs ap4: 23.4 cm2 LVLs ap4: 7.4 cm ESV(MOD-sp4): 62.0 ml ESV(sp4-el): 62.6 ml EF(MOD-sp4): 49.3 % EF(sp4-el): 49.0 % SV(sp4-el): 60.2 ml LA A4 area: 20.8 cm2 LA dimension(2D): 4.2 cm RA A4 area: 19.3 cm2 TAPSE: 2.1 cm Doppler Measurements & Calculations MV E max hiram: 87.0 cm/sec Lat Peak E' Hiram: 6.0 cm/sec Med Peak E' Hiram: 9.0 cm/sec E/E' lat: 14.6 E/E' med: 9.7 Ao V2 max: 214.5 cm/sec LV V1 max: 148.8 cm/sec PA V2 max: 96.8 cm/sec Ao max P.6 mmHg LV V1 max P.9 mmHg PA V2 mean: 67.0 cm/sec Ao V2 mean: 153.3 cm/sec LV V1 mean P.1 mmHg Ao mean P.5 mmHg LV V1 mean: 108.4 cm/sec Ao V2 VTI: 39.1 cm LV V1 VTI: 29.3 cm AV (velocity ratio): 0.75 ECHO/Echo Complete Interpretation Summary Normal left ventricle. Moderate concentric left ventricular hypertrophy. The left ventricular ejection fraction is 45 %. There is mild global hypokinesis of the left ventricle. Ordering Physician: Quentin Chapman Referring Physician: Leighton Orozco Chi Performed By: Taina Pearson and Student
[2023-10-29] MEDS: Acetaminophen 325 MG Tablet 650 MG PO ×2 (18:35→22:08)
[2023-10-29] MEDS: Calcium Gluconate IV 1 GM in 0.9% Normal Saline (100mL Bag) 100 ML IV (19:23)
[2023-10-29] MEDS: Ensure Plus High Protein 120 ML LIQUID PO (22:08)
[2023-10-29] MEDS: dilTIAZem CD 120 MG Capsule PO (22:22)
[2023-10-29] MEDS: MELATONIN 3 MG TABLET 6 MG PO (23:18)
[2023-10-30] VITALS (12 sets, daily range): BP systolic 123–146; BP diastolic 58–94; PULSE 79–108; RESP 16–24; TEMP 36.2–36.9; O2SAT 93–100; BMI 27.0
[2023-10-30] MEDS: Acetaminophen 325 MG Tablet 650 MG PO ×6 (02:50→23:04)
[2023-10-30 05:55] LABS: Absolute Lymphocyte Count 28.23 X10^3/uL (0.83-4.51); Absolute Neutrophil Count 1.5 X10^3/uL (2.0-7.7); Basophil# 0.03 X10^3/uL; Basophil% 0.1 % (0-1); Eosinophil# 0.01 X10^3/uL; Hematocrit 29.9 % (40-54); Hemoglobin 9.9 g/dL (13.0-16.5); Lymphocyte # 28.23 X10^3/ul (0.83-4.51); Mean Corp Hgb Conc 33.1 g/dL (32-36); Mean Corpuscular Hgb 44.2 pg (27.0-32.0); Mean Corpuscular Volume 133.5 fL (80-94); Mean Platelet Vol. 9.6 fl (6.2-12.0); NRBC Flagged by Analyzer 0.2 % (0-5); Neutrophil % 4.6 % (47-70); POSITIVE COUNT YES; POSITIVE DIFFERENTIAL YES; POSITIVE MORPHOLOGY YES; Platelet Count 195 K/mm3 (150-450); RBC Distribution Width CV 19.3 % (11.6-14.6); RBC Distribution Width SD 96.1 fl (35.1-43.9); Red Blood Count 2.24 M/mm3 (4.6-6.2)
[2023-10-30 06:31] LABS: Anion Gap 9 (5-15); BUN 24 mg/dL (7-18); Calcium,Total 6.1 mg/dL (8.5-10.1); Chloride 112 mmol/L (98-107); Cholesterol 57 mg/dL (200); Creatinine, Serum 1.41 mg/dL (0.70-1.30); EST Glomerular Filtration Rate 53 mL/min (>60); Est Glom Filt Rate - Afr Amer 64 mL/min (>60); Estimated Creatinine Clearance 50.33 ml/min; Glucose 111 mg/dL (74-106); High Density Lipoprotein 38 mg/dL; Magnesium 0.3 mg/dL (1.6-2.6); Potassium 3.7 mmol/L (3.5-5.1); Sodium Level 144 mmol/L (136-145); Triglycerides 106 mg/dL; Very Low Density Lipoprotein 21 mg/dL (5-40)
[2023-10-30 06:33] LABS: Differential Indicated SCAN CRITERIA MET; White Blood Count 32.5 K/mm3 (4.4-11.0)
[2023-10-30] MEDS: Budesonide Respules 0.5 MG/2 ML AMPUL.NEB. INHALATION ×2 (06:51→19:43)
[2023-10-30] MEDS: Ipratropium/Albuterol Sulfate 3 ML AMPUL.NEB INHALATION ×3 (06:51→19:43)
[2023-10-30] MEDS: 0.9% Saline Lock 10 ML Syringe IV (06:59)
[2023-10-30] MEDS: 0.9% Normal Saline (250mL Bag) 250 ML 15 ML IV (06:59)
[2023-10-30] MEDS: Magnesium Sulfate 4gm/100mL 4 GM/100 ML IV.SOLN. IV (07:04)
[2023-10-30] MEDS: Calcium Gluconate IV 2 GM in 0.9% Normal Saline (100mL Bag) 100 ML IV (07:57)
[2023-10-30 08:17] LABS: Platelet Estimate ADEQUATE (ADEQ)
[2023-10-30 08:18] LABS: Anisocytosis RARE
[2023-10-30] MEDS: Calcitriol 0.25 MCG Capsule PO (08:46)
[2023-10-30] MEDS: Escitalopram Oxalate 10 MG Tablet 5 MG PO (08:46)
[2023-10-30] MEDS: Magnesium Chloride 64 MG Delay Rel.Tablet 128 MG PO (08:46)
[2023-10-30] MEDS: Aspirin 81 MG TAB.CHEW PO (08:46)
[2023-10-30] MEDS: dilTIAZem CD 120 MG Capsule PO (08:46)
[2023-10-30] MEDS: Pantoprazole Sodium 40 MG Tablet PO (08:46)
[2023-10-30] MEDS: Hydroxyurea 500 MG Capsule 1500 MG PO (08:47)
[2023-10-30] MEDS: Ascorbic Acid 500 MG Tablet PO (08:47)
[2023-10-30] MEDS: Ensure Plus High Protein 120 ML LIQUID PO (08:49)
[2023-10-30 08:58] LABS: Phosphorus 4.9 mg/dL (2.5-4.9)
--- NOTE | 2023-10-30 09:00 | MRI_ITS ---
STUDY: MRI BRAIN WITHOUT CONTRAST REASON FOR EXAM: Male, 68 years old. TIA, headache, weakness, acute expressive aphasia TECHNIQUE: Standardized multiplanar fat and water weighted pulse sequences were obtained. COMPARISON: Head CT dated October 29, 2023 FINDINGS: There is mild cerebral atrophy with widening of the extra-axial spaces and ventricular dilatation. Normal white matter tracts of the supratentorial brain. There is no evidence for recent intracranial ischemia or other cause of cytotoxic edema on diffusion weighted imaging (DWI). Normal T2* images of the brain without demonstrated susceptibility artifact. There is no demonstrated hemosiderin stain. There are no demyelinating plagues of the supratentorial brain, brainstem or cerebellum. There are no findings suspicious for multiple sclerosis (MS). Normal bilateral basal ganglia. Normal thalami. There is no extra-axial fluid accumulation. Normal flow voids within the major intracranial circulation suggesting patency by spin echo criteria. Normal sella turcica, pituitary gland, infundibular stalk, optic chiasm and hypothalamus. Normal tectal plate and pineal gland. Normal midbrain, marichuy and medulla. Normal cerebellum. Normal basal cisterns. Normal bilateral temporal bones. Normal bilateral internal auditory canals. No demonstrated orbital abnormality, within the constraints of a routine brain study. There is mucoperiosteal inflammatory disease of the paranasal sinuses consistent with mild chronic sinusitis. Normal calvarium and skull base. Normal visualized soft tissue structures. Normal visualized upper cervical spine. There are severe mucous opacification of the right mastoid air cells and middle ear cavity consistent with otomastoiditis. MRI/Brain without Contrast IMPRESSION: 1. Involutional changes of the brain, as described above. 2. Severe right otomastoiditis Electronically Signed: Reg Aquino MD at 10:57 EDT ,
--- NOTE | 2023-10-30 12:17 | STROKE.CONS ---
Assessment and Plan: Stroke Assessment/Plan ADINA DAVID is a 68 M with a history of HTN, CAD, recurrent DVT on Xarelto 10 mg, myeloproliferative disease, renal cancer CLL presents with slurred speech, right facial numbness and weakness.Likely had a TIA Neurological examination shows non focal examination. Neuroimaging shows CTA: mild 40% stenosis of the right carotid and moderate 60% left carotid stenosis. MRI Brain negative for stroke. Carotid duplex bilaterally on 10/14/2023: < 50% stenosis. Likely had a TIA. Plan 1. Continue ASA 2. F/up with vascular surgery as moderate stenosis left ICA on CTA and recent doppler less than 50% 3. Please obtain ECHO, HbA1c 4. 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 Right otomastoiditis . Management per primary team. Thanks for consult. Spent 40 min in management of this patient. HPI Consult Data Date of Consult: 10/30/23 HPI Narrative HPI Narrative: ADINA DAVID, is a 68 M with HTN, CAD, DVT on Xarelto 10 mg presents with slurred speech, right facial numbness and weakness. For the past 2 days, patient been having headache and just feeling weak. Presented to the emergency room and he had acute onset of expressive aphasia and feeling weak. Symptoms lasted for 20 to 40 minutes but completely resolved. Patient underwent a head CT and CTA of the head and neck showed no acute process. Though the head and neck CTA showed mild 40% stenosis of the right carotid and moderate 60% left carotid stenosis. Patient never had symptoms like that before. Stroke code called not a TNK candidate. No recurrent symptoms [facility] Medical History Recurrent deep vein thrombosis (DVT) Depressive disorder due to another medical condition with depressive features History of pulmonary embolism History of DVT (deep vein thrombosis) Iron deficiency anemia due to chronic blood loss Emphysema lung Dyslipidemia Multiple lipomas History of elevated PSA BPH (benign prostatic hyperplasia) AVM (arteriovenous malformation) of colon Chronic GI bleeding Diverticular disease History of skin cancer Multiple lung nodules Cancer of kidney Essential thrombocythemia Hydrocele Femur fracture (~2020) Pulmonary fibrosis Pulmonary embolism DVT (deep venous thrombosis) Obstructive sleep apnea Coronary artery disease CLL (chronic lymphocytic leukemia) Rhodes esophagus COPD (chronic obstructive pulmonary disease) Home Medications ?Medication ?Instructions ?Recorded ?Last Taken ?Type acetaminophen 325 mg capsule 650 mg PO Q4H Pain 12/26/22 10/13/23 History (Tylenol) albuterol sulfate 90 mcg/actuation 1 inh inhalation Q4H PRN shortness 12/26/22 Unknown History aerosol inhaler of breath or wheezing omeprazole 40 mg capsule,delayed 40 mg PO DAILY GERD 12/26/22 10/13/23 History release zolpidem 5 mg tablet 10 mg PO QHS PRN PRN sleep 12/26/22 Unknown History escitalopram oxalate 5 mg tablet 5 mg PO DAILY 01/30/23 10/13/23 History (Lexapro) ascorbic acid (vitamin C) 500 mg 500 mg PO DAILY 02/06/23 Unknown History tablet magnesium oxide 400 mg PO DAILY 02/06/23 Unknown History ergocalciferol (vitamin D2) 1,250 50,000 unit PO QMONTH 08/19/23 Unknown History mcg (50,000 unit) capsule evolocumab 140 mg/mL subcutaneous 140 mg subcut QMONTH 08/19/23 Unknown History pen injector (Kenji Hennessy) hydroxyurea 500 mg capsule 1,500 mg PO DAILY 10/07/23 Unknown History metoprolol tartrate 100 mg tablet 150 mg PO DAILY BP 10/07/23 10/13/23 History rivaroxaban 20 mg tablet (Xarelto) 10 mg PO DAILY 10/07/23 Unknown History calcitriol 0.25 mcg capsule 0.25 mcg PO DAILY 10/23/23 Unknown History amlodipine 5 mg tablet 5 mg PO DAILY 10/29/23 Unknown History diltiazem HCl 120 mg 120 mg PO Q24H 10/29/23 Unknown History capsule,extended release 24 hr, controlled (DILT-XR) ergocalciferol (vitamin D2) 1,000 50 mcg PO DAILY 10/29/23 Unknown History unit capsule fluticasone propionate 50 1 spray intranasal BID 10/29/23 Unknown History mcg/actuation nasal spray,suspension Allergy/AdvReac Type Severity Reaction Status Date / Time Penicillins Allergy PT UNSURE Verified 10/29/23 13:11 OF REACTION doxycycline AdvReac Unknown Upset Verified 10/29/23 13:11 Stomach Family History Father Myocardial infarction Mother Colon cancer Surgical History History of heart artery stent (~2018) History of hernia surgery (~2021) H/O kidney removal (~2017) History of bowel resection Hx of tonsillectomy Social History household members: none Smoking Status: Former smoker pack-years: 10 alcohol intake: never substance use type: does not use, former substance user and other details: marijuana Vital Signs Vital Signs Vital Signs: 10/29/23 13:11 10/29/23 13:32 10/29/23 13:40 Temperature 97.7 F L Temperature Source Temporal Pulse Rate 87 101 H Respiratory Rate 20 H 20 H Respiratory Effort Labored Respiratory Depth Respiratory Pattern Tachypnea Blood Pressure 132/100 H 125/67 H Blood Pressure Mean 110 86 Blood Pressure Source Blood Pressure Position Blood Pressure Location Pulse Ox 98 98 Oxygen Delivery Method Room Air 10/29/23 13:48 10/29/23 14:13 10/29/23 14:30 Temperature 98.9 F Temperature Source Temporal Pulse Rate 92 88 Respiratory Rate 16 16 Respiratory Effort Respiratory Depth Respiratory Pattern Blood Pressure 142/61 H 138/51 H Blood Pressure Mean 88 80 Blood Pressure Source Blood Pressure Position Blood Pressure Location Pulse Ox 99 98 98 Oxygen Delivery Method Room Air Room Air Room Air 10/29/23 14:59 10/29/23 15:10 10/29/23 15:30 Temperature 98.1 F 98.1 F Temperature Source Oral Oral Pulse Rate 85 83 87 Respiratory Rate 16 18 18 Respiratory Effort Respiratory Depth Respiratory Pattern Blood Pressure 158/95 H 178/113 H 165/116 H Blood Pressure Mean 116 134 132 Blood Pressure Source Blood Pressure Position Blood Pressure Location Pulse Ox 97 97 96 Oxygen Delivery Method Room Air Room Air Room Air 10/29/23 16:00 10/29/23 16:30 10/29/23 17:00 Temperature 98.0 F 97.8 F Temperature Source Oral Temporal Pulse Rate 92 83 97 Respiratory Rate 24 H 14 24 H Respiratory Effort Respiratory Depth Respiratory Pattern Blood Pressure 157/103 H 153/83 H 146/83 H Blood Pressure Mean 121 106 104 Blood Pressure Source Blood Pressure Position Blood Pressure Location Pulse Ox 98 97 97 Oxygen Delivery Method Room Air Room Air Room Air 10/29/23 17:00 10/29/23 17:51 10/29/23 18:03 Temperature 97.8 F Temperature Source Temporal Pulse Rate 114 H 60 Respiratory Rate 20 H 18 Respiratory Effort Normal Non-Labored Respiratory Depth Normal Respiratory Pattern Normal Blood Pressure 146/83 H 148/96 H Blood Pressure Mean 104 113 Blood Pressure Source Monitor Blood Pressure Position Semi-Fowlers Blood Pressure Location Left Arm Pulse Ox 98 95 Oxygen Delivery Method Room Air Room Air Room Air 10/29/23 21:26 10/30/23 03:00 10/30/23 07:00 Temperature 97.8 F 97.8 F Temperature Source Temporal Temporal Pulse Rate 84 87 Respiratory Rate 18 18 Respiratory Effort Respiratory Depth Respiratory Pattern Blood Pressure 138/94 H 140/92 H Blood Pressure Mean 108 108 Blood Pressure Source Blood Pressure Position Blood Pressure Location Pulse Ox 99 94 96 Oxygen Delivery Method Room Air Room Air Room Air 10/30/23 08:14 10/30/23 08:40 10/30/23 11:47 Temperature 97.2 F L 97.5 F L Temperature Source Temporal Temporal Pulse Rate 108 H 99 Respiratory Rate 18 18 Respiratory Effort Normal Non-Labored Respiratory Depth Normal Respiratory Pattern Normal Blood Pressure 146/94 H 131/79 H Blood Pressure Mean 111 96 Blood Pressure Source Blood Pressure Position Blood Pressure Location Pulse Ox 93 100 Oxygen Delivery Method Room Air Room Air Room Air Weight Weight: 85.5 kg Body Mass Index (BMI) 27.0 EEG Results Procedure Details EEG Procedure Details: ADINA DAVID is a 68 year old M with a past medical history of , who presents for evaluation of Electroencephalogram on DATE at TIME NIHSS NIHSS Nursing Documentation NIHSS Nursing Documentation: NIHSS: Ischemic Stroke/TIA Start: 10/29/23 18:17 Text: For PCU Patients: NIH and Neuro Check every 4 Status: Active hours, PRN and with change in RN caregiver. Freq: [id number] Protocol: Activity Type Activity Date Activity User E-sign Co-sign Detail Recorded Client Recorded Date Recorded By Document 10/30/23 11:47 MM desktop 10/30/23 11:48 MM 10/30/23 11:47 NIH Stroke Scale [NIHSS] A score of 0 is normal or asymptomatic . Total possible score is 42. Inpatient: RN or Physician to activate a stroke alert for onset of new stroke symptoms or with NIHSS increase >/= 3 points. Following change in neurological status, NIHSS will be performed per physician order or more frequently PRN. -1a. Level of Consciousness Alert; keenly responsive -1b. LOC Questions Answers BOTH questions correctly. -1c. LOC Commands Performs both tasks correctly . -2. Best Gaze Normal -3. Visual No visual loss -4. Facial Palsy Normal symmetrical movements -5a. Left Arm No drift; arm holds 90 (or 45 ) degrees for full 10 seconds -5b. Right Arm No drift; arm holds 90 (or 45 ) degrees for full 10 seconds -6a. Left Leg No drift; leg holds 30-degree position for full 5 seconds -6b. Right Leg No drift; leg holds 30-degree position for full 5 seconds -7. Limb Ataxia Absent -8. Sensory Normal; no sensory loss -9. Best Language No aphasia; normal -10. Dysarthria Normal -11. Extinction and Inattention No abnormality -Total 0 Query Text:A score of 0 is normal or asymptomatic. Total possible score is 42 . ED: Notify Physician for NIHSS increase by > / = 3 points. Inpatient: RN or Physician to activate a stroke alert for NIHSS increase of > / = 3 points. Coma Scale [Assess] -Eye Opening Spontaneous -Motor Obeys Commands -Verbal Oriented [Total] -Coma Scale Total 15 NIHSS 1a. Level of Consciousness: Alert; keenly responsive 1b. LOC Questions: Answers BOTH questions correctly. 1c. LOC Commands: Performs both tasks correctly. 2. Best Gaze: Normal 3. Visual: No visual loss 4. Facial Palsy: Normal symmetrical movements 5a. Left Arm: No drift; arm holds 90 (or 45) degrees for full 10 seconds 5b. Right Arm: No drift; arm holds 90 (or 45) degrees for full 10 seconds 6a. Left Leg: No drift; leg holds 30-degree position for full 5 seconds 6b. Right Leg: No drift; leg holds 30-degree position for full 5 seconds 7. Limb Ataxia: Absent 8. Sensory: Normal; no sensory loss 9. Best Language: No aphasia; normal 10. Dysarthria: Normal 11. Extinction and Inattention: No abnormality Total: 0 Physical Exam Const alert, oriented x3 and no apparent distress General Appearance: cooperative and comfortable Orientation / Consciousness: oriented to person, oriented to place and oriented to time Exam Limitations: no limitations HEENT normocephalic Face and Sinus: normal facial exam Eyes EOMs intact bilaterally Resp normal respiratory effort Neuro Neuro Narrative: Awake, alert, oriented X3 Cranial nerves intact Motor: 5/5 all over Sensation: intact No ataxia Lab / Micro Data 10/30/23 05:33 10/30/23 05:33 Labs: Laboratory Results - last 24 hr 10/29/23 13:30: WBC 48.0 H*, RBC 2.37 L, Hgb 10.2 L, Hct 31.9 L, MCV 134.6 H, MCH 43.0 H, MCHC 32.0, RDW Std Deviation 98.2 H, RDW Coeff of Susan 19.6 H, Plt Count 300, MPV 9.7, Immature Gran % (Auto) 0.400, Neut % (Auto) 4.2 L, Lymph % (Auto) 82.3 H, [place] % (Auto) 12.9 H, Eos % (Auto) 0.0, Baso % (Auto) 0.2, Absolute Neuts (auto) 2.0, Absolute Lymphs (auto) 39.47 H, Nucleated RBC % 0.1, Differential Comment , Diff Path Review August, Platelet Estimate ADEQUATE, PT 17.0 H, INR 1.4, APTT 25.3, Sodium 141, Potassium 4.1, Chloride 108 H, Carbon Dioxide 21.0, Anion Gap 12, BUN 31 H, Creatinine 1.72 H, Estim Creat Clear Calc 41.26, Est GFR (MDRD) Af Amer 51 L, Est GFR (MDRD) Non-Af 42 L, BUN/Creatinine Ratio 18.0, Glucose 96, Calcium 5.8 L*, Troponin I High Sens 33 10/29/23 13:40: POC Glucose 97 10/30/23 05:33: WBC 32.5 H*, RBC 2.24 L, Hgb 9.9 L, Hct 29.9 L, MCV 133.5 H, MCH 44.2 H, MCHC 33.1, RDW Std Deviation 96.1 H, RDW Coeff of Susan 19.3 H, Plt Count 195, MPV 9.6, Immature Gran % (Auto) 0.300, Neut % (Auto) 4.6 L, Lymph % (Auto) 87.0 H, [place] % (Auto) 8.0, Eos % (Auto) 0.0, Baso % (Auto) 0.1, Absolute Neuts (auto) 1.5 L, Absolute Lymphs (auto) 28.23 H, Nucleated RBC % 0.2, Differential Comment , Diff Path Review May foll, Platelet Estimate ADEQUATE, Anisocytosis RARE, Sodium 144, Potassium 3.7, Chloride 112 H, Carbon Dioxide 23.0, Anion Gap 9, BUN 24 H, Creatinine 1.41 H, Estim Creat Clear Calc 50.33, Est GFR (MDRD) Af Amer 64, Est GFR (MDRD) Non-Af 53 L, BUN/Creatinine Ratio 17.0, Glucose 111 H, Calcium 6.1 L*, Phosphorus 4.9, Magnesium 0.3 L*, Triglycerides 106, Cholesterol 57, LDL Cholesterol -2 L, VLDL Cholesterol 21, HDL Cholesterol 38 L Rhythm Strip Rhythm Strip: Sinus Tach (PACs) Rate: 102 Ectopy: None Imaging Radiology Impression Brain CT 10/29/23 13:43 IMPRESSION: Chronic involutional changes of the brain. Electronically Signed: Jerry Brannon MD at 14:11 EDT Reading Location ID and State: [id number] / [employer] , Service support , ADDENDUM: 10/29/23 1419 IMPRESSION: Chronic involutional changes of the brain. N.B. : The above Results were Read Back by Jerry Brannon MD to Blessing Huff MD, and understanding confirmed on 10/29/2023 14:12:06 (ET). Electronically Signed: Jerry Brannon MD at 14:11 EDT Reading Location ID and State: [id number] / [employer] , Service support , Head/Neck CTA 10/29/23 14:07 IMPRESSION: Normal CTA Head with contrast. Mild (40%) stenosis right carotid stenosis. Moderate (60%) (left carotid stenosis. Patent vertebral arteries bilaterally. Electronically Signed: Jerry Brannon MD at 15:10 EDT Reading Location ID and State: [id number] / [employer] , Service support , Chest X-Ray 10/29/23 14:10 IMPRESSION: Normal x-ray examination of the chest. Electronically Signed: Jerry Brannon MD at 14:22 EDT , Brain MRI 10/30/23 09:00 IMPRESSION: 1. Involutional changes of the brain, as described above. 2. Severe right otomastoiditis Electronically Signed: Reg Aquino MD at 10:57 EDT , Active Medications Active Medications Active Medications: Current Medications Generic Name Dose Route Start Last Admin Trade Name Zafarq PRN Reason Stop Dose Admin Acetaminophen 650 mg 10/29/23 19:00 10/30/23 11:49 Acetaminophen 325 Mg Tablet PO 650 mg Q4H FELICITY Administration Acyclovir 200 mg 10/29/23 18:40 Acyclovir 200 Mg Capsule PO BID PRN COLD SORES Albuterol Sulfate 2.5 mg 10/29/23 18:27 Albuterol 2.5 Mg/3 Ml Vial.Neb. INHALATION Q6H PRN shortness of breath or wheezing Albuterol/Ipratropium 3 ml 10/29/23 18:45 10/30/23 06:51 Ipratropium/Albuterol Sulfate 3 Ml Ampul.Neb INHALATION 3 ml Q6HWA.RT FELICITY Administration Ascorbic Acid 500 mg 10/30/23 10:00 10/30/23 08:47 Ascorbic Acid 500 Mg Tablet PO 500 mg DAILY FELICITY Administration Aspirin 81 mg 10/30/23 08:00 10/30/23 08:46 Aspirin 81 Mg Tab.Chew PO 81 mg BREAKFAST FELICITY Administration Budesonide 0.5 mg 10/29/23 18:45 10/30/23 06:51 Budesonide Respules 0.5 Mg/2 Ml Ampul.Neb. INHALATION 0.5 mg Q12H.RT FELICITY Administration Calcitriol 0.25 mcg 10/30/23 10:00 10/30/23 08:46 Calcitriol 0.25 Mcg Capsule PO 0.25 mcg DAILY FELICITY Administration Diltiazem HCl 120 mg 10/30/23 10:00 10/30/23 08:46 Diltiazem Cd 120 Mg Capsule PO 120 mg DAILY FELICITY Administration Protocol Escitalopram Oxalate 5 mg 10/30/23 10:00 10/30/23 08:46 Escitalopram Oxalate 10 Mg Tablet PO 5 mg DAILY FELICITY Administration Hydralazine HCl 5 mg 10/29/23 18:17 Hydralazine 20 Mg/Ml Vial IV 10/30/23 18:17 Q30M PRN maintain BP parameters with HR <60 Hydroxyurea 1,500 mg 10/30/23 10:00 10/30/23 08:47 Hydroxyurea 500 Mg Capsule PO 1,500 mg DAILY FELICITY Administration Sodium Chloride 500 mls @ 15 mls/hr 10/29/23 17:54 IV PRN PRN Blood Transfusion Sodium Chloride 250 mls @ 15 mls/hr 10/29/23 17:54 10/30/23 10:18 IV Infused .[id number] PRN Infusion Additional IVPB Infusion Sodium Chloride 250 mls @ 15 mls/hr 10/29/23 17:54 IV .[id number] PRN Saline Flush Labetalol HCl 20 mg 10/29/23 13:43 Labetalol (Prefilled) 20 Mg/4 Ml IV 10/30/23 13:43 X1 PRN Blood Pressure Magnesium Chloride 128 mg 10/30/23 10:00 10/30/23 08:46 Magnesium Chloride 64 Mg Delay Rel.Tablet PO 128 mg DAILY FELICITY Administration Metoprolol Tartrate 150 mg 10/30/23 14:00 Metoprolol Tartrate 50 Mg Tablet PO DAILY [facility] Protocol Nutritional Formula (Lactose Free) 120 ml 10/29/23 22:00 10/30/23 08:49 Ensure Plus High Protein 120 Ml Liquid PO 120 ml 4X/DAY FELICITY Administration Ondansetron HCl 8 mg 10/29/23 18:17 Ondansetron 8 Mg Tablet PO Q8H PRN nausea and vomiting Ondansetron HCl 4 mg 10/29/23 18:17 Ondansetron 4 Mg/2 Ml Vial IV Q8H PRN PRN NAUSEA/VOMITING Pantoprazole Sodium 40 mg 10/30/23 10:00 10/30/23 08:46 Pantoprazole Sodium 40 Mg Tablet PO 40 mg DAILY FELICITY Administration Rivaroxaban 10 mg 10/30/23 17:00 Rivaroxaban 10 Mg Tablet PO DINNER FELICITY Sodium Chloride 10 - 40 ml 10/29/23 17:54 10/30/23 06:59 0.9% Saline Lock 10 Ml Syringe IV 10 ml UD PRN Administration SALINE FLUSH
[2023-10-30 13:16] LABS: Pathologist Review Reviewed
--- NOTE | 2023-10-30 13:22 | CHAPLAIN ---
Type of Pastoral Visit ___ Initial Visit _x__ Follow-up Visit ___ On-call Visit ___ General Patient Visit ___ Spiritual Assessment ___ Family Conference ___ Bereavement ___ Rapid Response ___ Code Blue ___ Other (describe below) Pastoral Care Referral From _x__ Patient ___ Family ___ Nurse ___ Physician ___ Material Cutter ___ Seasonal Recruiter ___ Other (describe below) Sacrament/Intervention _x__ Active listening ___ Anointing ___ Adventism ___ Bereavement ___ Communion _x__ Ashlyn exploration ___ _x__ Life review ___ Prayer ___ Reconciliation ___ Sacrament of Sick _x__ Supportive presence ___ Wedding ___ Other (describe below) Pastoral Comments patient is resting in his room with daughter in the room; both recall events and health of last several months and especially about the episode yesterday; 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
[2023-10-30] MEDS: Metoprolol Tartrate 50 MG Tablet 150 MG PO (13:26)
[2023-10-30] MEDS: Ceftriaxone 1 GM/50 ML BAG IV (14:32)
--- NOTE | 2023-10-30 14:55 | PCM.PN.HOSP ---
Subjective Subjective Doing well, no issues overnight. Magnesium was extremely low and replaced we will recheck this afternoon Objective Data Objective Data Vital Signs: Vital Signs Temp Pulse Resp BP Pulse Ox O2 Del Method 97.5 F L 100 18 141/75 H 100 Room Air 10/30/23 11:47 10/30/23 13:28 10/30/23 12:32 10/30/23 13:28 10/30/23 11:47 10/30/23 13:38 Oxygen Delivery Method Room Air Weight: 188 lb 7.924 oz Body Mass Index (BMI) 27.0 Intake & Output: Intake and Output for Last 24 Hours 10/29/23 10/30/23 10/31/23 03:59 03:59 03:59 Intake Total 110 / 110 221.25 / 221.25 Output Total 350 / 350 Balance -240 / -240 221.25 / 221.25 Lab / Micro Data 10/30/23 05:33 10/30/23 05:33 Labs: Laboratory Results - last 24 hr 10/29/23 13:30: Diff Path Review Reviewed 10/30/23 05:33: WBC 32.5 H*, RBC 2.24 L, Hgb 9.9 L, Hct 29.9 L, MCV 133.5 H, MCH 44.2 H, MCHC 33.1, RDW Std Deviation 96.1 H, RDW Coeff of Susan 19.3 H, Plt Count 195, MPV 9.6, Immature Gran % (Auto) 0.300, Neut % (Auto) 4.6 L, Lymph % (Auto) 87.0 H, [place] % (Auto) 8.0, Eos % (Auto) 0.0, Baso % (Auto) 0.1, Absolute Neuts (auto) 1.5 L, Absolute Lymphs (auto) 28.23 H, Nucleated RBC % 0.2, Differential Comment , Diff Path Review May foll, Platelet Estimate ADEQUATE, Anisocytosis RARE, Sodium 144, Potassium 3.7, Chloride 112 H, Carbon Dioxide 23.0, Anion Gap 9, BUN 24 H, Creatinine 1.41 H, Estim Creat Clear Calc 50.33, Est GFR (MDRD) Af Amer 64, Est GFR (MDRD) Non-Af 53 L, BUN/Creatinine Ratio 17.0, Glucose 111 H, Calcium 6.1 L*, Phosphorus 4.9, Magnesium 0.3 L*, Triglycerides 106, Cholesterol 57, LDL Cholesterol -2 L, VLDL Cholesterol 21, HDL Cholesterol 38 L Radiography Diagnostic Testing: Radiology Impression Head/Neck CTA 10/29/23 14:07 IMPRESSION: Normal CTA Head with contrast. Mild (40%) stenosis right carotid stenosis. Moderate (60%) (left carotid stenosis. Patent vertebral arteries bilaterally. Electronically Signed: Jerry Brannon MD at 15:10 EDT , Brain MRI 10/30/23 09:00 IMPRESSION: 1. Involutional changes of the brain, as described above. 2. Severe right otomastoiditis Electronically Signed: Reg Aquino MD at 10:57 EDT , Rhythm Strip Rhythm Strip: Sinus Tach (PACs) Rate: 102 Ectopy: None Physical Exam Narrative General: Alert, Oriented x3, Cooperative, No apparent distress HEENT: Atraumatic, PERRLA, EOMI, Normocephalic Oral: Moist Mucosa Neck: Supple, No JVD Lungs: Diminished, Normal air movement, No rhonchi, No wheeze, No rales Cardiovascular: Regular rate, Regular Rhythm, Normal S1, Normal S2, No murmurs Abdomen: Soft, Non Tender, Non-Distended, No Hepato-splenomegaly Extremities: No edema, Capillary Refill Less than 3 Seconds Skin: No rashes, No breakdown Musculoskeletal: No Tenderness to Palpation of Joints or Extremities Neurological: No focal neurological deficits, Motor Exam 5/5 strength throughout, Sensory exam intact to light touch and pain, NIH of 0 Psych/Mental Status: Normal Affect, Appropriate Assessment & Plan Assessment/Plan (1) TIA (transient ischemic attack): (2) Hypocalcemia: PLAN: Plan 1. Expressive aphasia/hypomagnesemia and hypocalcemia/acute mastoiditis ? Unclear if this is TIA versus severe electrolyte derangement ? Calcium was low at 6.1 today his magnesium was 0.3 will recheck this afternoon ? MRI was negative for stroke but it did show severe right mastoiditis which is consistent with his history of CLL in the setting of ear infection for about 2 weeks recently, he denies any pain to palpation of his mastoid ? Continue with vancomycin and Rocephin and will consult infectious disease and may need inpatient versus outpatient ENT evaluation given his history of CLL 2. CLL with a history of DVT ? Continue follow-up with oncology as an outpatient, continue with his home meds ? Continue Xarelto, he does have an IVC filter placed he does have a history of GI bleeds 3. Essential HTN ? Blood pressure stable, can resume blood pressure medication tomorrow morning -Monitor make adjustments as necessary 4. GERD ? Stable ? Continue with PPI 5. Anxiety/depression ? Stable ? Continue with his home medications DVT: Lynda Charges/Coding Visit Charges Inpatient E&M: 50861 Subs Hosp L2
[2023-10-30 15:10] LABS: Anion Gap 17 (5-15); BUN 25 mg/dL (7-18); BUN/Creat Ratio 15.4 RATIO (10-20); Calcium,Total 5.6 mg/dL (8.5-10.1); Chloride 109 mmol/L (98-107); Creatinine, Serum 1.62 mg/dL (0.70-1.30); EST Glomerular Filtration Rate 45 mL/min (>60); Est Glom Filt Rate - Afr Amer 54 mL/min (>60); Estimated Creatinine Clearance 43.81 ml/min; Glucose 172 mg/dL (74-106); Magnesium 1.6 mg/dL (1.6-2.6); Potassium 3.8 mmol/L (3.5-5.1); Sodium Level 142 mmol/L (136-145)
--- NOTE | 2023-10-30 15:17 | CASEMGMT ---
Met with patient to complete RIBERA form. RIBERA form explained to patient who voiced understanding and signed form. Original form placed in pt?s chart and copy provided to patient. Aria Ortega, Discharge Planning Asst
[2023-10-30] MEDS: Vancomycin HCl 2,000 MG in 0.9% Normal Saline (500mL Bag) 500 ML 250 MG IV (15:22)
[2023-10-30] MEDS: Magnesium Sulfate 2 GM in Dextrose 5%-Water (100mL Bag) 100 ML IV (15:45)
[2023-10-30] MEDS: Calcium Carbonate 500 MG Tablet 1000 MG PO (15:45)
--- NOTE | 2023-10-30 15:47 | PHA.PHARE_ITS ---
Consult Antibiotic Management Pharmacy has been consulted to manage selected antibiotic: Vancomycin Type of Intervention Type of Consult: New start Suspected Infection Suspected Infection: Other (MASOIDITIS) Prior Doses of Antibiotics Prior Doses of Antibiotics Received/Current Regimen: Vancomycin 2000 mg IV x 1 given 10/30/23 @ 1522, patient is also receiving ceft riaxone 1 gram daily Labs Labs: Sodium 142 mmol/L (136-145) 10/30/23 14:11 Potassium 3.8 mmol/L (3.5-5.1) 10/30/23 14:11 Chloride 109 mmol/L (98-107) H 10/30/23 14:11 Carbon Dioxide 16.0 mmol/L (21.0-32.0) L 10/30/23 14:11 Anion Gap 17 (5-15) H 10/30/23 14:11 BUN 25 mg/dL (7-18) H 10/30/23 14:11 Creatinine 1.62 mg/dL (0.70-1.30) H 10/30/23 14:11 Est GFR (MDRD) Af Amer 54 mL/min (>60) L 10/30/23 14:11 Est GFR (MDRD) Non-Af 45 mL/min (>60) L 10/30/23 14:11 BUN/Creatinine Ratio 15.4 RATIO (10-20) 10/30/23 14:11 Glucose 172 mg/dL (74-106) H 10/30/23 14:11 Dosing Weight Weight used for dosin kg Estimated Creatinine Clearance Estimated Creatinine Clearance: ~50 Goal Trough Goal Trough: 15-20 mcg/mL Pharmacy Plan for Drug Dosing Pharmacy Plan for Drug Dosing: Vancomycin 2000 mg IV x 1 followed by 750 mg IV Q12H Pharmacy Service will continue to monitor and adjust dosing as required. Follow-Up Labs Follow-Up Labs: Trough: Vancomycin Date/Time Labs Ordered Labs to be done on [date and time ordered]: 11/01/23 @ 1964
[2023-10-30] MEDS: Rivaroxaban 10 MG Tablet PO (16:15)
[2023-10-30] MEDS: MELATONIN 3 MG TABLET 6 MG PO (23:04)
[2023-10-31] VITALS (10 sets, daily range): BP systolic 130–154; BP diastolic 62–77; PULSE 78–100; RESP 16–18; TEMP 36.6–36.9; O2SAT 93–97
[2023-10-31 00:02] LABS: Ionized Calcium Order ORDER TUBE
[2023-10-31] MEDS: Vancomycin HCl 750 MG in 0.9% Normal Saline (250mL Bag) 250 ML 250 MG IV ×2 (02:57→15:04)
[2023-10-31] MEDS: Acetaminophen 325 MG Tablet 650 MG PO ×4 (02:58→21:32)
[2023-10-31 07:19] LABS: Anion Gap 12 (5-15); BUN 32 mg/dL (7-18); BUN/Creat Ratio 23.4 RATIO (10-20); Calcium,Total 6.8 mg/dL (8.5-10.1); Chloride 110 mmol/L (98-107); Creatinine, Serum 1.37 mg/dL (0.70-1.30); EST Glomerular Filtration Rate 55 mL/min (>60); Est Glom Filt Rate - Afr Amer 66 mL/min (>60); Glucose 125 mg/dL (74-106); Sodium Level 144 mmol/L (136-145)
[2023-10-31] MEDS: Budesonide Respules 0.5 MG/2 ML AMPUL.NEB. INHALATION ×2 (07:23→19:24)
[2023-10-31] MEDS: Ipratropium/Albuterol Sulfate 3 ML AMPUL.NEB INHALATION ×2 (07:25→19:24)
[2023-10-31] MEDS: Pantoprazole Sodium 40 MG Tablet PO (09:14)
[2023-10-31] MEDS: Calcium Carbonate 500 MG Tablet 1000 MG PO ×3 (09:14→17:16)
[2023-10-31] MEDS: Magnesium Chloride 64 MG Delay Rel.Tablet 128 MG PO (09:14)
[2023-10-31] MEDS: Aspirin 81 MG TAB.CHEW PO (09:14)
[2023-10-31] MEDS: Escitalopram Oxalate 10 MG Tablet 5 MG PO (09:15)
[2023-10-31] MEDS: Ascorbic Acid 500 MG Tablet PO (09:15)
[2023-10-31] MEDS: Calcitriol 0.25 MCG Capsule PO (09:15)
[2023-10-31] MEDS: Hydroxyurea 500 MG Capsule 1500 MG PO (09:18)
[2023-10-31] MEDS: dilTIAZem CD 120 MG Capsule PO (09:18)
--- NOTE | 2023-10-31 09:35 | CASEMGMT ---
MEHUL CERDA Assessment: Face to Face with pt for initial transition planning/care coordination assessment. RN ZAIDA introduced self and role at [facility], pt voices understanding and consents to assessment. Pt is A&O x4 and answers all questions appropriately at this time. Pt sitting up in bed in no distress. Pt dtr present in room and pt agreeable to assessment with dtr present. Care providers, pharmacy, and demographics verified/updated. Admitting Dx: TIA PCP:Ernesto Specialists:Samara, onc; geovanna Boyer; Flory, pulm; Brea, cardio Preferred [facility]acy[facility] Insurance: [facility], MMO Prescription Benefit: yes LNOK: Raine Namrata, dtr Living Arrangements: Pt lives alone in a single story home with 1 step to enter. Pt reports he is I in ADL's and IADL's but his laundry is behind. Pt has been ill recently and is struggling to recover. Transportation: Pt drives self and denies concerns with transportation. DME:w/c, FWW, shower chair HHC/SNF: Pt has had [facility] in the past which he did not care for, TCU at [facility]. Pt and express concerns of going home as he has had pna since October 15 and now with mastoiditis and TIA. Pt states he has difficulty walking long distances d/t his R leg for which he sees for and actually had an appt on day of admission that he missed. Pt is currently going to outpt PT near his home and is active with [facility]. Dtr expresses concern for pt being at home and her limited availability to help pt. ID to consult. Pt states he was told he should've been on IV antibiotics previously by a [employer]EDULER. He states if he needs IV antibiotics, he would prefer to go to TCU for this. He would prefer TCU regardless. Pt is interested in a rollator for home. Discussed the 5 year rule and the coverage for the item. Provided pt with a local verbal in network list of DME companies, pt chose [employer]. RN ZAIDA to follow for this and [facility] if pt does not go to SNF. Pt dtr appears overwhelmed and requesting multiple different plans for dc. Pt states no further concerns/needs. CM to follow. Advised pt to ask CM if any further question/concerns/needs arise, voices understanding. Pt Goal: [facility] TCU Plan: TBD pending course of therapy, hospitalization, ID consult. SNF vs Home with HHC and rollator Handoff given to PCU CM. Email to Palliative Care to make aware pt is currently hospitalized. Angelo CARVER CM
[2023-10-31] MEDS: Metoprolol Tartrate 50 MG Tablet 150 MG PO (09:58)
[2023-10-31] MEDS: Ceftriaxone 1 GM/50 ML BAG IV (09:59)
--- NOTE | 2023-10-31 10:08 | PN.HOSP_ITS ---
Subjective Subjective Doing well, no issues overnight Objective Data Objective Data Vital Signs: Vital Signs Temp Pulse Resp BP Pulse Ox O2 Del Method 97.8 F 100 18 143/74 H 96 Room Air 10/31/23 09:11 10/31/23 09:11 10/31/23 09:11 10/31/23 09:11 10/31/23 09:11 10/31/23 09:11 Oxygen Delivery Method Room Air Weight: 188 lb 7.924 oz Body Mass Index (BMI) 27.0 Intake & Output: Intake and Output for Last 24 Hours 10/30/23 10/31/23 11/01/23 03:59 03:59 03:59 Intake Total 110 / 110 1275.25 / 1275.25 625 / 625 Output Total 350 / 350 300 / 300 550 / 550 Balance -240 / -240 975.25 / 975.25 75 / 75 Lab / Micro Data 10/30/23 05:33 10/31/23 06:13 Labs: Laboratory Results - last 24 hr 10/29/23 13:30: Diff Path Review Reviewed 10/30/23 14:11: Sodium 142, Potassium 3.8, Chloride 109 H, Carbon Dioxide 16.0 L , Anion Gap 17 H, BUN 25 H, Creatinine 1.62 H, Estim Creat Clear Calc 43.81, Est GFR (MDRD) Af Amer 54 L, Est GFR (MDRD) Non-Af 45 L, BUN/Creatinine Ratio 15.4, Glucose 172 H, Calcium 5.6 L*, Magnesium 1.6 10/30/23 16:06: Ionized Calcium 3.80 L 10/31/23 06:13: Sodium 144, Potassium 4.0, Chloride 110 H, Carbon Dioxide 22.0, Anion Gap 12, BUN 32 H, Creatinine 1.37 H, Estim Creat Clear Calc 51.80, Est GFR (MDRD) Af Amer 66, Est GFR (MDRD) Non-Af 55 L, BUN/Creatinine Ratio 23.4 H, G lucose 125 H, Calcium 6.8 L, Magnesium 2.0 Radiography Diagnostic Testing: Radiology Impression Echocardiogram 10/29/23 18:17 Interpretation Summary Normal left ventricle. Moderate concentric left ventricular hypertrophy. The left ventricular ejection fraction is 45 %. There is mild global hypokinesis of the left ventricle. Ordering Physician: Quentin Chapman Referring Physician: Leighton Orozco Chi Performed By: Taina Pearson and Student Brain MRI 10/30/23 09:00 IMPRESSION: 1. Involutional changes of the brain, as described above. 2. Severe right otomastoiditis Electronically Signed: Reg Aquino MD at 10:57 EDT Reading Location ID and State: [facility] / [place] , Service support , Rhythm Strip Rhythm Strip: Sinus Tach (PACs) Rate: 102 Ectopy: None Physical Exam Narrative General: Alert, Oriented x3, Cooperative, No apparent distress HEENT: Atraumatic, PERRLA, EOMI, Normocephalic Oral: Moist Mucosa Neck: Supple, No JVD Lungs: Diminished, Normal air movement, No rhonchi, No wheeze, No rales Cardiovascular: Regular rate, Regular Rhythm, Normal S1, Normal S2, No murmurs Abdomen: Soft, Non Tender, Non-Distended, No Hepato-splenomegaly Extremities: No edema, Capillary Refill Less than 3 Seconds Skin: No rashes, No breakdown Musculoskeletal: No Tenderness to Palpation of Joints or Extremities Neurological: No focal neurological deficits, Motor Exam 5/5 strength throughout, Sensory exam intact to light touch and pain, NIH of 0 Psych/Mental Status: Normal Affect, Appropriate Assessment & Plan Assessment/Plan (1) TIA (transient ischemic attack): (2) Hypocalcemia: PLAN: Plan 1. Expressive aphasia/hypomagnesemia and hypocalcemia/acute mastoiditis ? Unclear if this is TIA versus severe electrolyte derangement ? Ca is 6.8 this morning and magnesium and potassium are normal ? MRI was negative for stroke but it did show severe right mastoiditis which is consistent with his history of CLL in the setting of ear infection for about 2 weeks recently, he denies any pain to palpation of his mastoid ? Continue with vancomycin and Rocephin and will consult infectious disease and may need inpatient versus outpatient ENT evaluation given his history of CLL 2. CLL with a history of DVT ? Continue follow-up with oncology as an outpatient, continue with his home meds ? Continue Xarelto, he does have an IVC filter placed he does have a history of GI bleeds 3. Essential HTN ? Blood pressure stable, can resume blood pressure medication tomorrow morning -Monitor make adjustments as necessary 4. GERD ? Stable ? Continue with PPI 5. Anxiety/depression ? Stable ? Continue with his home medications DVT: Therapeutic lovenox Charges/Coding Visit Charges Inpatient E&M: 07338 Subs Hosp L2
--- NOTE | 2023-10-31 11:45 | STROKE.CONS ---
Assessment and Plan: Stroke Assessment/Plan ADINA DAVID is a 68 M with a history of HTN, CAD, recurrent DVT on Xarelto 10 mg, myeloproliferative disease, renal cancer CLL presents with slurred speech, right facial numbness and weakness.Likely had a TIA Neurological examination shows non focal examination. Neuroimaging shows CTA: mild 40% stenosis of the right carotid and moderate 60% left carotid stenosis. MRI Brain negative for stroke. Carotid duplex bilaterally on 10/14/2023: < 50% stenosis. ECHO: EF 45% Likely had a TIA. Plan 1. Continue ASA 2. F/up with vascular surgery as moderate stenosis left ICA on CTA and recent doppler less than 50% 3. 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 Right otomastoiditis . Management per primary team. Thanks for consult. Spent 35 min in management of this patient. HPI Consult Data Date of Consult: 10/31/23 HPI Narrative HPI Narrative: ADINA DAVID, is a 68 M with HTN, CAD, DVT on Xarelto 10 mg presents with slurred speech, right facial numbness and weakness. For the past 2 days, patient been having headache and just feeling weak. Presented to the emergency room and he had acute onset of expressive aphasia and feeling weak. Symptoms lasted for 20 to 40 minutes but completely resolved. Patient underwent a head CT and CTA of the head and neck showed no acute process. Though the head and neck CTA showed mild 40% stenosis of the right carotid and moderate 60% left carotid stenosis. Patient never had symptoms like that before. Stroke code called not a TNK candidate. No recurrent symptoms PFSH Medical History Recurrent deep vein thrombosis (DVT) Depressive disorder due to another medical condition with depressive features History of pulmonary embolism History of DVT (deep vein thrombosis) Iron deficiency anemia due to chronic blood loss Emphysema lung Dyslipidemia Multiple lipomas History of elevated PSA BPH (benign prostatic hyperplasia) AVM (arteriovenous malformation) of colon Chronic GI bleeding Diverticular disease History of skin cancer Multiple lung nodules Cancer of kidney Essential thrombocythemia Hydrocele Femur fracture (~2020) Pulmonary fibrosis Pulmonary embolism DVT (deep venous thrombosis) Obstructive sleep apnea Coronary artery disease CLL (chronic lymphocytic leukemia) Rhodes esophagus COPD (chronic obstructive pulmonary disease) Home Medications ?Medication ?Instructions ?Recorded ?Last Taken ?Type acetaminophen 325 mg capsule 650 mg PO Q4H Pain 12/26/22 10/13/23 History (Tylenol) albuterol sulfate 90 mcg/actuation 1 inh inhalation Q4H PRN shortness 12/26/22 Unknown History aerosol inhaler of breath or wheezing omeprazole 40 mg capsule,delayed 40 mg PO DAILY GERD 12/26/22 10/13/23 History release zolpidem 5 mg tablet 10 mg PO QHS PRN PRN sleep 12/26/22 Unknown History escitalopram oxalate 5 mg tablet 5 mg PO DAILY 01/30/23 10/13/23 History (Lexapro) ascorbic acid (vitamin C) 500 mg 500 mg PO DAILY 02/06/23 Unknown History tablet magnesium oxide 400 mg PO DAILY 02/06/23 Unknown History ergocalciferol (vitamin D2) 1,250 50,000 unit PO QMONTH 08/19/23 Unknown History mcg (50,000 unit) capsule evolocumab 140 mg/mL subcutaneous 140 mg subcut QMONTH 08/19/23 Unknown History pen injector (Kenji Hennessy) hydroxyurea 500 mg capsule 1,500 mg PO DAILY 10/07/23 Unknown History metoprolol tartrate 100 mg tablet 150 mg PO DAILY BP 10/07/23 10/13/23 History rivaroxaban 20 mg tablet (Xarelto) 10 mg PO DAILY 10/07/23 Unknown History calcitriol 0.25 mcg capsule 0.25 mcg PO DAILY 10/23/23 Unknown History amlodipine 5 mg tablet 5 mg PO DAILY 10/29/23 Unknown History diltiazem HCl 120 mg 120 mg PO Q24H 10/29/23 Unknown History capsule,extended release 24 hr, controlled (DILT-XR) ergocalciferol (vitamin D2) 1,000 50 mcg PO DAILY 10/29/23 Unknown History unit capsule fluticasone propionate 50 1 spray intranasal BID 10/29/23 Unknown History mcg/actuation nasal spray,suspension Allergy/AdvReac Type Severity Reaction Status Date / Time Penicillins Allergy PT UNSURE Verified 10/29/23 13:11 OF REACTION doxycycline AdvReac Unknown Upset Verified 10/29/23 13:11 Stomach Family History Father Myocardial infarction Mother Colon cancer Surgical History History of heart artery stent (~2018) History of hernia surgery (~2021) H/O kidney removal (~2017) History of bowel resection Hx of tonsillectomy Social History household members: none Smoking Status: Former smoker pack-years: 10 alcohol intake: never substance use type: does not use, former substance user and other details: marijuana Vital Signs Vital Signs Vital Signs: 10/30/23 11:47 10/30/23 12:32 10/30/23 13:26 Temperature 97.5 F L Temperature Source Temporal Pulse Rate 99 86 100 Pulse Strength Respiratory Rate 18 18 Respiratory Effort Respiratory Depth Respiratory Pattern Normal Blood Pressure 131/79 H Blood Pressure Mean 96 Blood Pressure Source Blood Pressure Position Blood Pressure Location Pulse Ox 100 Oxygen Delivery Method Room Air 10/30/23 13:28 10/30/23 13:38 10/30/23 15:25 Temperature 97.5 F L Temperature Source Temporal Pulse Rate 100 100 Pulse Strength Respiratory Rate 18 Respiratory Effort Normal Non-Labored Respiratory Depth Normal Respiratory Pattern Normal Blood Pressure 141/75 H 126/80 H Blood Pressure Mean 97 95 Blood Pressure Source Blood Pressure Position Blood Pressure Location Pulse Ox 94 Oxygen Delivery Method Room Air Room Air 10/30/23 19:47 10/30/23 19:47 10/30/23 21:30 Temperature 98.5 F Temperature Source Oral Pulse Rate 79 85 Pulse Strength Respiratory Rate 18 24 H Respiratory Effort Respiratory Depth Respiratory Pattern Normal Blood Pressure 123/58 H Blood Pressure Mean 79 Blood Pressure Source Monitor Blood Pressure Position Supine Blood Pressure Location Right Arm Pulse Ox 97 96 Oxygen Delivery Method Room Air Room Air 10/30/23 22:00 10/30/23 22:00 10/30/23 23:25 Temperature 98.5 F Temperature Source Oral Pulse Rate 85 Pulse Strength Normal (2+) Respiratory Rate 24 H Respiratory Effort Normal Respiratory Depth Normal Respiratory Pattern Tachypnea Blood Pressure 123/58 H Blood Pressure Mean 79 Blood Pressure Source Blood Pressure Position Blood Pressure Location Pulse Ox 96 Oxygen Delivery Method Room Air Room Air 10/31/23 04:00 10/31/23 04:00 10/31/23 05:25 Temperature 98.4 F 98.4 F Temperature Source Oral Oral Pulse Rate 80 80 Pulse Strength Respiratory Rate 18 18 Respiratory Effort Normal Respiratory Depth Normal Respiratory Pattern Normal Blood Pressure 130/77 H 130/77 H Blood Pressure Mean 94 94 Blood Pressure Source Monitor Blood Pressure Position Supine Blood Pressure Location Right Arm Pulse Ox 93 93 Oxygen Delivery Method Room Air Room Air Room Air 10/31/23 07:26 10/31/23 07:26 10/31/23 08:11 Temperature Temperature Source Pulse Rate 78 Pulse Strength Respiratory Rate 16 Respiratory Effort Normal Non-Labored Respiratory Depth Normal Respiratory Pattern Normal Normal Blood Pressure Blood Pressure Mean Blood Pressure Source Blood Pressure Position Blood Pressure Location Pulse Ox 96 Oxygen Delivery Method Room Air Room Air 10/31/23 09:11 10/31/23 09:58 Temperature 97.8 F Temperature Source Temporal Pulse Rate 100 100 Pulse Strength Respiratory Rate 18 Respiratory Effort Respiratory Depth Respiratory Pattern Blood Pressure 143/74 H Blood Pressure Mean 97 Blood Pressure Source Blood Pressure Position Blood Pressure Location Pulse Ox 96 Oxygen Delivery Method Room Air Weight Weight: 85.5 kg Body Mass Index (BMI) 27.0 EEG Results Procedure Details EEG Procedure Details: ADINA DAVID is a 68 year old M with a past medical history of , who presents for evaluation of Electroencephalogram on DATE at TIME NIHSS NIHSS Nursing Documentation NIHSS Nursing Documentation: NIHSS: Ischemic Stroke/TIA Start: 10/29/23 18:17 Text: For PCU Patients: NIH and Neuro Check every 4 Status: Complete hours, PRN and with change in RN caregiver. Freq: [id number] Protocol: Activity Type Activity Date Activity User E-sign Co-sign Detail Recorded Client Recorded Date Recorded By Document 10/30/23 15:25 MM desktop 10/30/23 15:28 MM 10/30/23 15:25 NIH Stroke Scale [NIHSS] A score of 0 is normal or asymptomatic . Total possible score is 42. Inpatient: RN or Physician to activate a stroke alert for onset of new stroke symptoms or with NIHSS increase >/= 3 points. Following change in neurological status, NIHSS will be performed per physician order or more frequently PRN. -1a. Level of Consciousness Alert; keenly responsive -1b. LOC Questions Answers BOTH questions correctly. -1c. LOC Commands Performs both tasks correctly . -2. Best Gaze Normal -3. Visual No visual loss -4. Facial Palsy Normal symmetrical movements -5a. Left Arm No drift; arm holds 90 (or 45 ) degrees for full 10 seconds -5b. Right Arm No drift; arm holds 90 (or 45 ) degrees for full 10 seconds -6a. Left Leg No drift; leg holds 30-degree position for full 5 seconds -6b. Right Leg No drift; leg holds 30-degree position for full 5 seconds -7. Limb Ataxia Absent -8. Sensory Normal; no sensory loss -9. Best Language No aphasia; normal -10. Dysarthria Normal -11. Extinction and Inattention No abnormality -Total 0 Query Text:A score of 0 is normal or asymptomatic. Total possible score is 42 . ED: Notify Physician for NIHSS increase by > / = 3 points. Inpatient: RN or Physician to activate a stroke alert for NIHSS increase of > / = 3 points. Coma Scale [Assess] -Eye Opening Spontaneous -Motor Obeys Commands -Verbal Oriented [Total] -Coma Scale Total 15 NIHSS 1a. Level of Consciousness: Alert; keenly responsive 1b. LOC Questions: Answers BOTH questions correctly. 1c. LOC Commands: Performs both tasks correctly. 2. Best Gaze: Normal 3. Visual: No visual loss 4. Facial Palsy: Normal symmetrical movements 5a. Left Arm: No drift; arm holds 90 (or 45) degrees for full 10 seconds 5b. Right Arm: No drift; arm holds 90 (or 45) degrees for full 10 seconds 6a. Left Leg: No drift; leg holds 30-degree position for full 5 seconds 6b. Right Leg: No drift; leg holds 30-degree position for full 5 seconds 7. Limb Ataxia: Absent 8. Sensory: Normal; no sensory loss 9. Best Language: No aphasia; normal 10. Dysarthria: Normal 11. Extinction and Inattention: No abnormality Total: 0 Physical Exam Const alert, oriented x3 and no apparent distress General Appearance: cooperative Orientation / Consciousness: awake, oriented to person and oriented to place HEENT normocephalic Neuro Neuro Narrative: Awake, alert, oriented X3 Cranial nerves intact Motor: 5/5 all over Sensation: intact No ataxia Lab / Micro Data 10/30/23 05:33 10/31/23 06:13 Labs: Laboratory Results - last 24 hr 10/29/23 13:30: Diff Path Review Reviewed 10/30/23 14:11: Sodium 142, Potassium 3.8, Chloride 109 H, Carbon Dioxide 16.0 L, Anion Gap 17 H, BUN 25 H, Creatinine 1.62 H, Estim Creat Clear Calc 43.81, Est GFR (MDRD) Af Amer 54 L, Est GFR (MDRD) Non-Af 45 L, BUN/Creatinine Ratio 15.4, Glucose 172 H, Calcium 5.6 L*, Magnesium 1.6 10/30/23 16:06: Ionized Calcium 3.80 L 10/31/23 06:13: Sodium 144, Potassium 4.0, Chloride 110 H, Carbon Dioxide 22.0, Anion Gap 12, BUN 32 H, Creatinine 1.37 H, Estim Creat Clear Calc 51.80, Est GFR (MDRD) Af Amer 66, Est GFR (MDRD) Non-Af 55 L, BUN/Creatinine Ratio 23.4 H, Glucose 125 H, Calcium 6.8 L, Magnesium 2.0 Rhythm Strip Rhythm Strip: Sinus Tach (PACs) Rate: 102 Ectopy: None Imaging Radiology Impression Echocardiogram 10/29/23 18:17 Interpretation Summary Normal left ventricle. Moderate concentric left ventricular hypertrophy. The left ventricular ejection fraction is 45 %. There is mild global hypokinesis of the left ventricle. Ordering Physician: Quentin Chapman Referring Physician: Leighton Orozco Chi Performed By: Taina Pearson and Student Active Medications Active Medications Active Medications: Current Medications Generic Name Dose Route Start Last Admin Trade Name Freq PRN Reason Stop Dose Admin Acetaminophen 650 mg 10/29/23 19:00 10/31/23 10:00 Acetaminophen 325 Mg Tablet PO Not Given Q4H FELICITY Acyclovir 200 mg 10/29/23 18:40 Acyclovir 200 Mg Capsule PO BID PRN COLD SORES Albuterol Sulfate 2.5 mg 10/29/23 18:27 Albuterol 2.5 Mg/3 Ml Vial.Neb. INHALATION Q6H PRN shortness of breath or wheezing Albuterol/Ipratropium 3 ml 10/29/23 18:45 10/31/23 07:25 Ipratropium/Albuterol Sulfate 3 Ml Ampul.Neb INHALATION 3 ml Q6HWA.RT FELICITY Administration Ascorbic Acid 500 mg 10/30/23 10:00 10/31/23 09:15 Ascorbic Acid 500 Mg Tablet PO 500 mg DAILY FELICITY Administration Aspirin 81 mg 10/30/23 08:00 10/31/23 09:14 Aspirin 81 Mg Tab.Chew PO 81 mg BREAKFAST FELICITY Administration Budesonide 0.5 mg 10/29/23 18:45 10/31/23 07:23 Budesonide Respules 0.5 Mg/2 Ml Ampul.Neb. INHALATION 0.5 mg Q12H.RT FELICITY Administration Calcitriol 0.25 mcg 10/30/23 10:00 10/31/23 09:15 Calcitriol 0.25 Mcg Capsule PO 0.25 mcg DAILY FELICITY Administration Calcium Carbonate 1,000 mg 10/30/23 15:15 10/31/23 09:14 Calcium Carbonate 500 Mg Tablet PO 1,000 mg TIDCM FELICITY Administration Diltiazem HCl 120 mg 10/30/23 10:00 10/31/23 09:18 Diltiazem Cd 120 Mg Capsule PO 120 mg DAILY FELICITY Administration Protocol Enoxaparin Sodium 80 mg 10/31/23 22:00 Enoxaparin 80 Mg/0.8 Ml Syringe SC Q12 FELICITY Escitalopram Oxalate 5 mg 10/30/23 10:00 10/31/23 09:15 Escitalopram Oxalate 10 Mg Tablet PO 5 mg DAILY FELICITY Administration Hydroxyurea 1,500 mg 10/30/23 10:00 10/31/23 09:18 Hydroxyurea 500 Mg Capsule PO 1,500 mg DAILY FELICITY Administration Sodium Chloride 500 mls @ 15 mls/hr 10/29/23 17:54 IV PRN PRN Blood Transfusion Sodium Chloride 250 mls @ 15 mls/hr 10/29/23 17:54 10/30/23 10:18 IV Infused .[id number] PRN Infusion Additional IVPB Infusion Sodium Chloride 250 mls @ 15 mls/hr 10/29/23 17:54 IV .[id number] PRN Saline Flush Vancomycin IV-PHARMACY TO DOSE 500 mls @ 250 mls/hr 10/30/23 14:01 1 each/ Sodium Chloride IV PRN PRN Rx to Dose Protocol Ceftriaxone Sodium 1 gm in 50 mls @ 100 mls/hr 10/30/23 14:05 10/31/23 09:59 Rocephin IV 100 mls/hr Q24 FELICITY Administration Vancomycin HCl 750 mg/ Sodium 265 mls @ 250 mls/hr 10/31/23 03:00 10/31/23 04:05 Chloride IV Infused Q12H FELICITY Infusion Magnesium Chloride 128 mg 10/30/23 10:00 10/31/23 09:14 Magnesium Chloride 64 Mg Delay Rel.Tablet PO 128 mg DAILY FELICITY Administration Melatonin 6 mg 10/30/23 22:29 10/30/23 23:04 Melatonin 3 Mg Tablet PO 6 mg QHS PRN Administration SLEEP Metoprolol Tartrate 150 mg 10/30/23 14:00 10/31/23 09:58 Metoprolol Tartrate 50 Mg Tablet PO 150 mg DAILY FELICITY Administration Protocol Ondansetron HCl 8 mg 10/29/23 18:17 Ondansetron 8 Mg Tablet PO Q8H PRN nausea and vomiting Ondansetron HCl 4 mg 10/29/23 18:17 Ondansetron 4 Mg/2 Ml Vial IV Q8H PRN PRN NAUSEA/VOMITING Pantoprazole Sodium 40 mg 10/30/23 10:00 10/31/23 09:14 Pantoprazole Sodium 40 Mg Tablet PO 40 mg DAILY FELICITY Administration Sodium Chloride 10 - 40 ml 10/29/23 17:54 10/30/23 06:59 0.9% Saline Lock 10 Ml Syringe IV 10 ml UD PRN Administration SALINE FLUSH Vancomycin Protocol 1 lab 11/01/23 00:30 Vancomycin Trough/Random Due 11/01/23 04:30 DAILY FELICITY
[2023-10-31 12:54] LABS: Pathologist Review Reviewed
--- NOTE | 2023-10-31 13:37 | CON.PCM.ID_ITS ---
Assessment & Plan Assessment/Plan (1) Mastoiditis of right side: PLAN: Failed outpt levaquin. He is unsure of PCN as a child. Will cover with vanc/cefepime/flagyl. Recommend ENT eval. Will follow, thank you (2) CLL (chronic lymphocytic leukemia): (3) CKD (chronic kidney disease), stage III: (4) Cancer of kidney: QUALIFIERS: Laterality: right Qualified Code(s): C64.1 - Malignant neoplasm of right kidney, except renal pelvis HPI Consult Data Date of Consult: 10/31/23 HPI Narrative Reason for Consultation: mastoiditis HPI Narrative: ADINA DAVID, is a 68 M with CLL, DVT, htn, presented 10/28 with weakness, altered speech. Started to have R ear pain about 2-3 weeks ago. Went to urgent care around the 15 of October, given azithro for otitis. Saw Dr. Orozco a few days after, changed to levaquin for 10 day course. No improvement with abx, pain was moderate, had progressive hearing loss. Mild headache, some nausea. No fever. Came to ED with acute changes, seen by neuro. Imaging show mastoiditis. On vanc/ceftriaxone, not feeling much better. Full ROS performed and neg except as noted above. [facility] Medical History Recurrent deep vein thrombosis (DVT) Depressive disorder due to another medical condition with depressive features History of pulmonary embolism History of DVT (deep vein thrombosis) Iron deficiency anemia due to chronic blood loss Emphysema lung Dyslipidemia Multiple lipomas History of elevated PSA BPH (benign prostatic hyperplasia) AVM (arteriovenous malformation) of colon Chronic GI bleeding Diverticular disease History of skin cancer Multiple lung nodules Cancer of kidney Essential thrombocythemia Hydrocele Femur fracture (~2020) Pulmonary fibrosis Pulmonary embolism DVT (deep venous thrombosis) Obstructive sleep apnea Coronary artery disease CLL (chronic lymphocytic leukemia) Rhodes esophagus COPD (chronic obstructive pulmonary disease) Home Medications ?Medication ?Instructions ?Recorded ?Last Taken ?Type acetaminophen 325 mg capsule 650 mg PO Q4H Pain 12/26/22 10/13/23 History (Tylenol) albuterol sulfate 90 mcg/actuation 1 inh inhalation Q4H PRN shortness 12/26/22 Unknown History aerosol inhaler of breath or wheezing omeprazole 40 mg capsule,delayed 40 mg PO DAILY GERD 12/26/22 10/13/23 History release zolpidem 5 mg tablet 10 mg PO QHS PRN PRN sleep 12/26/22 Unknown History escitalopram oxalate 5 mg tablet 5 mg PO DAILY 01/30/23 10/13/23 History (Lexapro) ascorbic acid (vitamin C) 500 mg 500 mg PO DAILY 02/06/23 Unknown History tablet magnesium oxide 400 mg PO DAILY 02/06/23 Unknown History ergocalciferol (vitamin D2) 1,250 50,000 unit PO QMONTH 08/19/23 Unknown History mcg (50,000 unit) capsule evolocumab 140 mg/mL subcutaneous 140 mg subcut QMONTH 08/19/23 Unknown History pen injector (sabrina AntoineNicole) hydroxyurea 500 mg capsule 1,500 mg PO DAILY 10/07/23 Unknown History metoprolol tartrate 100 mg tablet 150 mg PO DAILY BP 10/07/23 10/13/23 History rivaroxaban 20 mg tablet (Xarelto) 10 mg PO DAILY 10/07/23 Unknown History calcitriol 0.25 mcg capsule 0.25 mcg PO DAILY 10/23/23 Unknown History amlodipine 5 mg tablet 5 mg PO DAILY 10/29/23 Unknown History diltiazem HCl 120 mg 120 mg PO Q24H 10/29/23 Unknown History capsule,extended release 24 hr, controlled (DILT-XR) ergocalciferol (vitamin D2) 1,000 50 mcg PO DAILY 10/29/23 Unknown History unit capsule fluticasone propionate 50 1 spray intranasal BID 10/29/23 Unknown History mcg/actuation nasal spray,suspension Allergy/AdvReac Type Severity Reaction Status Date / Time Penicillins Allergy PT UNSURE Verified 10/29/23 13:11 OF REACTION doxycycline AdvReac Unknown Upset Verified 10/29/23 13:11 Stomach Family History Father Myocardial infarction Mother Colon cancer Surgical History History of heart artery stent (~2018) History of hernia surgery (~2021) H/O kidney removal (~2017) History of bowel resection Hx of tonsillectomy Social History household members: none Smoking Status: Former smoker pack-years: 10 alcohol intake: never substance use type: does not use, former substance user and other details: marijuana Physical Exam Const alert, oriented x3 and no apparent distress General Appearance: cooperative HEENT normocephalic and head/scalp atraumatic Eyes PERRL and EOMs intact bilaterally Neck supple and No nodes Resp normal air movement and clear to auscultation bilaterally Cardio regular rate and regular rhythm GI soft to palpation, non-tender and non-distended Extremity General Extremity: Negative for edema Skin no rashes or lesions noted Neuro CN's II-XII intact bilaterally Lab / Micro Data Attestation: I reviewed the patient's lab results. 10/30/23 05:33 10/31/23 06:13 Labs: Laboratory Results - last 24 hr 10/30/23 05:33: Diff Path Review Reviewed 10/30/23 14:11: Sodium 142, Potassium 3.8, Chloride 109 H, Carbon Dioxide 16.0 L , Anion Gap 17 H, BUN 25 H, Creatinine 1.62 H, Estim Creat Clear Calc 43.81, Est GFR (MDRD) Af Amer 54 L, Est GFR (MDRD) Non-Af 45 L, BUN/Creatinine Ratio 15.4, Glucose 172 H, Calcium 5.6 L*, Magnesium 1.6 10/30/23 16:06: Ionized Calcium 3.80 L 10/31/23 06:13: Sodium 144, Potassium 4.0, Chloride 110 H, Carbon Dioxide 22.0, Anion Gap 12, BUN 32 H, Creatinine 1.37 H, Estim Creat Clear Calc 51.80, Est GFR (MDRD) Af Amer 66, Est GFR (MDRD) Non-Af 55 L, BUN/Creatinine Ratio 23.4 H, G lucose 125 H, Calcium 6.8 L, Magnesium 2.0 Rhythm Strip Rhythm Strip: Sinus Tach (PACs) Rate: 102 Ectopy: None Imaging Radiology Impression Echocardiogram 10/29/23 18:17 Interpretation Summary Normal left ventricle. Moderate concentric left ventricular hypertrophy. The left ventricular ejection fraction is 45 %. There is mild global hypokinesis of the left ventricle. Ordering Physician: Quentin Chapman Referring Physician: Leighton Orozco Chi Performed By: Taina Pearson and Student
--- NOTE | 2023-10-31 14:08 | CHAPLAIN ---
Type of Pastoral Visit ___ Initial Visit ___ Follow-up Visit ___ On-call Visit ___ General Patient Visit ___ Spiritual Assessment ___ Family Conference ___ Bereavement ___ Rapid Response ___ Code Blue ___ Other (describe below) Pastoral Care Referral From ___ Patient ___ Family ___ Nurse ___ Physician ___ Vein Pumper ___ Loan Interviewer Mortgage ___ Other (describe below) Sacrament/Intervention ___ Active listening ___ Anointing ___ Judaism ___ Bereavement ___ Communion ___ Ashlyn exploration ___ ___ Life review ___ Prayer ___ Reconciliation ___ Sacrament of Sick ___ Supportive presence ___ Wedding ___ Other (describe below) Pastoral Comments attempted follow up visit but patient was out of the room
[2023-10-31] MEDS: Cefepime HCl 2 GM in 0.9% Normal Saline (100mL MB+) 100 ML IV ×2 (14:11→21:27)
[2023-10-31] MEDS: metroNIDAZOLE 500 MG Tablet PO ×2 (14:11→21:23)
--- NOTE | 2023-10-31 14:12 | CM.UR ---
SW spoke with patient and his daughter Raine. SW introduced self and role at [facility]. Patient does not have issues with paying for food. Patient's problem is that by the time he gets home from grocery shopping he does not have the energy to make a meal. SW provided them with information on [employer] meals as patient already tried [employer] and Meals on Wheels. SW also provided them with a private duty list. Patient and his daughter also discussed patient ordering groceries online and then going to pick them up. Both patient and Raine are concerned about patient going home and they would like for patient to go to TCU at discharge. SW let them know SW will make the referral and get back to them. SW made a referral to TCU. Liz FOOTE
--- NOTE | 2023-10-31 14:44 | CASEMGMT ---
SW spoke with patient and his daughter Raine. SW introduced self and role at [facility]. Patient does not have issues with paying for food. Patient's problem is that by the time he gets home from grocery shopping he does not have the energy to make a meal. SW provided them with information on [employer] meals as patient already tried [employer] and Meals on Wheels. SW also provided them with a private duty list. Patient and his daughter also discussed patient ordering groceries online and then going to pick them up. Both patient and Raine are concerned about patient going home and they would like for patient to go to TCU at discharge. SW let them know SW will make the referral and get back to them. SW made a referral to TCU. Liz FOOTE
--- NOTE | 2023-10-31 14:45 | CASEMGMT ---
SW spoke with patient and his daughter Raine. SW introduced self and role at [facility]. Patient does not have issues with paying for food. Patient's problem is that by the time he gets home from grocery shopping he does not have the energy to make a meal. SW provided them with information on [employer] meals as patient already tried [employer] and Meals on Wheels. SW also provided them with a private duty list. Patient and his daughter also discussed patient ordering groceries online and then going to pick them up. Both patient and Raine are concerned about patient going home and they would like for patient to go to TCU at discharge. SW let them know SW will make the referral and get back to them. SW made a referral to TCU. Liz FOOTE
[2023-10-31] MEDS: Enoxaparin 80 MG/0.8 ML Syringe SC (21:23)
[2023-10-31] MEDS: MELATONIN 3 MG TABLET 6 MG PO (21:25)
[2023-10-31] MEDS: 0.9% Saline Lock 10 ML Syringe IV (21:31)
[2023-11-01] VITALS (8 sets, daily range): BP systolic 146–159; BP diastolic 81–87; PULSE 88–119; RESP 18–20; TEMP 36.6–36.9; O2SAT 96–100
[2023-11-01 03:10] LABS: Vancomycin, Trough Level 14.5 ug/mL (5.0-15.0)
--- NOTE | 2023-11-01 03:28 | PCM.RX.CS ---
Consult Antibiotic Management Pharmacy has been consulted to manage selected antibiotic: Vancomycin Type of Intervention Type of Consult: Follow-up Suspected Infection Suspected Infection: Skin/Soft tissue Labs Labs: Sodium 144 mmol/L (136-145) 10/31/23 06:13 Potassium 4.0 mmol/L (3.5-5.1) 10/31/23 06:13 Chloride 110 mmol/L (98-107) H 10/31/23 06:13 Carbon Dioxide 22.0 mmol/L (21.0-32.0) 10/31/23 06:13 Anion Gap 12 (5-15) 10/31/23 06:13 BUN 32 mg/dL (7-18) H 10/31/23 06:13 Creatinine 1.37 mg/dL (0.70-1.30) H 10/31/23 06:13 Est GFR (MDRD) Af Amer 66 mL/min (>60) 10/31/23 06:13 Est GFR (MDRD) Non-Af 55 mL/min (>60) L 10/31/23 06:13 BUN/Creatinine Ratio 23.4 RATIO (10-20) H 10/31/23 06:13 Glucose 125 mg/dL (74-106) H 10/31/23 06:13 Vancomycin Trough 14.5 ug/mL (5.0-15.0) 11/01/23 02:45 Dosing Weight Weight used for dosin.5 kg Estimated Creatinine Clearance Estimated Creatinine Clearance: 52 Goal Trough Goal Trough: 15-20 mcg/mL Pharmacy Plan for Drug Dosing Pharmacy Plan for Drug Dosing: Vancomycin trough level of 14.5, drawn 11.75hrs post-dose, was slightly below the target range of 15-20. Will increase dose to 1000mg q12h, and will draw a trough prior to fourth dose of the new regimen. Pharmacy Service will continue to monitor and adjust dosing as required. Follow-Up Labs Follow-Up Labs: Trough: Vancomycin Date/Time Labs Ordered Labs to be done on [date and time ordered]: 11/02/23 @1500
[2023-11-01] MEDS: Vancomycin IV 1,000 MG/200 ML BAG 200 MG IV ×2 (03:34→14:46)
[2023-11-01] MEDS: Acetaminophen 325 MG Tablet 650 MG PO ×5 (03:36→22:26)
[2023-11-01] MEDS: metroNIDAZOLE 500 MG Tablet PO ×3 (05:51→21:23)
[2023-11-01 06:30] LABS: Basophil# 0.04 X10^3/uL; Basophil% 0.1 % (0-1); Eosinophil# 0.07 X10^3/uL; Eosinophils% 0.2 % (0-5); Hematocrit 28.2 % (40-54); Hemoglobin 8.9 g/dL (13.0-16.5); Lymphocyte % 81.3 % (19-41); Mean Corp Hgb Conc 31.6 g/dL (32-36); Mean Corpuscular Hgb 43.6 pg (27.0-32.0); Mean Corpuscular Volume 138.2 fL (80-94); Mean Platelet Vol. 9.8 fl (6.2-12.0); Monocyte# 3.46 X10^3/uL; Monocyte% 11.3 % (0-10); NRBC Flagged by Analyzer 0.1 % (0-5); Neutrophil # 1.97 X10^3/uL (2.7-7.7); Neutrophil % 6.5 % (47-70); POSITIVE COUNT YES; POSITIVE DIFFERENTIAL YES; POSITIVE MORPHOLOGY YES; Platelet Count 241 K/mm3 (150-450); RBC Distribution Width CV 18.6 % (11.6-14.6); RBC Distribution Width SD 96.2 fl (35.1-43.9); Red Blood Count 2.04 M/mm3 (4.6-6.2)
[2023-11-01] MEDS: Ipratropium/Albuterol Sulfate 3 ML AMPUL.NEB INHALATION ×3 (06:37→19:38)
[2023-11-01] MEDS: Budesonide Respules 0.5 MG/2 ML AMPUL.NEB. INHALATION ×2 (06:37→19:38)
[2023-11-01 06:38] LABS: Differential Indicated SCAN CRITERIA MET; White Blood Count 30.5 K/mm3 (4.4-11.0)
[2023-11-01 07:03] LABS: Anion Gap 5 (5-15); BUN 28 mg/dL (7-18); BUN/Creat Ratio 21.4 RATIO (10-20); Calcium,Total 7.4 mg/dL (8.5-10.1); Chloride 115 mmol/L (98-107); Creatinine, Serum 1.31 mg/dL (0.70-1.30); EST Glomerular Filtration Rate 58 mL/min (>60); Est Glom Filt Rate - Afr Amer 70 mL/min (>60); Estimated Creatinine Clearance 54.18 ml/min; Glucose 103 mg/dL (74-106); Potassium 4.8 mmol/L (3.5-5.1); Sodium Level 143 mmol/L (136-145)
[2023-11-01 07:18] LABS: Differential Comment SCANNED
[2023-11-01 07:19] LABS: Anisocytosis 1+; Smudge Cells 1+
--- NOTE | 2023-11-01 10:08 | PCM.PN.HOSP ---
Subjective Subjective Doing well, no issues overnight Objective Data Objective Data Vital Signs: Vital Signs Temp Pulse Resp BP Pulse Ox O2 Del Method 97.9 F 93 20 H 146/81 H 97 Room Air 11/01/23 03:46 11/01/23 06:38 11/01/23 06:38 11/01/23 03:46 11/01/23 06:38 11/01/23 06:38 Oxygen Delivery Method Room Air Weight: 188 lb 7.924 oz Body Mass Index (BMI) 27.0 Intake & Output: Intake and Output for Last 24 Hours 10/31/23 11/01/23 11/02/23 03:59 03:59 03:59 Intake Total 1275.25 / 1275.25 1500 / 1500 600 / 600 Output Total 300 / 300 550 / 550 Balance 975.25 / 975.25 950 / 950 600 / 600 Lab / Micro Data 11/01/23 05:48 11/01/23 05:48 Labs: Laboratory Results - last 24 hr 10/30/23 05:33: Diff Path Review Reviewed 11/01/23 02:45: Vancomycin Trough 14.5 11/01/23 05:48: WBC 30.5 H*, RBC 2.04 L, Hgb 8.9 L, Hct 28.2 L, MCV 138.2 H, MCH 43.6 H, MCHC 31.6 L, RDW Std Deviation 96.2 H, RDW Coeff of Susan 18.6 H, Plt Count 241, MPV 9.8, Immature Gran % (Auto) 0.600, Neut % (Auto) 6.5 L, Lymph % (Auto) 81.3 H, Reagan % (Auto) 11.3 H, Eos % (Auto) 0.2, Baso % (Auto) 0.1, Absolute Neuts (auto) 2.0, Absolute Lymphs (auto) 24.80 H, Nucleated RBC % 0.1, Differential Comment SCANNED, Diff Path Review May foll, Smudge Cells 1+ H, Anisocytosis 1+, Sodium 143, Potassium 4.8, Chloride 115 H, Carbon Dioxide 23.0, Anion Gap 5, BUN 28 H, Creatinine 1.31 H, Estim Creat Clear Calc 54.18, Est GFR (MDRD) Af Amer 70, Est GFR (MDRD) Non-Af 58 L, BUN/Creatinine Ratio 21.4 H, Glucose 103, Calcium 7.4 L Rhythm Strip Rhythm Strip: Sinus Tach (PACs) Rate: 102 Ectopy: None Physical Exam Narrative General: Alert, Oriented x3, Cooperative, No apparent distress HEENT: Atraumatic, PERRLA, EOMI, Normocephalic Oral: Moist Mucosa Neck: Supple, No JVD Lungs: Diminished, Normal air movement, No rhonchi, No wheeze, No rales Cardiovascular: Regular rate, Regular Rhythm, Normal S1, Normal S2, No murmurs Abdomen: Soft, Non Tender, Non-Distended, No Hepato-splenomegaly Extremities: No edema, Capillary Refill Less than 3 Seconds Skin: No rashes, No breakdown Musculoskeletal: No Tenderness to Palpation of Joints or Extremities Neurological: No focal neurological deficits, Motor Exam 5/5 strength throughout, Sensory exam intact to light touch and pain, NIH of 0 Psych/Mental Status: Normal Affect, Appropriate Assessment & Plan Assessment/Plan (1) TIA (transient ischemic attack): (2) Hypocalcemia: PLAN: Plan 1. Expressive aphasia/hypomagnesemia and hypocalcemia/acute mastoiditis ? Unclear if this is TIA versus severe electrolyte derangement ? Ca is 6.8 this morning and magnesium and potassium are normal ? MRI was negative for stroke but it did show severe right mastoiditis which is consistent with his history of CLL in the setting of ear infection for about 2 weeks recently, he denies any pain to palpation of his mastoid ? Appreciate infectious disease assistance, no on-call ENT this weekend if there is not one on Friday plan for for possible transfer 2. CLL with a history of DVT ? Continue follow-up with oncology as an outpatient, continue with his home meds ? Will hold Xarelto for the possibility of intervention and placed on therapeutic Lovenox, he does have an IVC filter placed he does have a history of GI bleeds 3. Essential HTN ? Blood pressure stable, can resume blood pressure medication tomorrow morning -Monitor make adjustments as necessary 4. GERD ? Stable ? Continue with PPI 5. Anxiety/depression ? Stable ? Continue with his home medications DVT: Therapeutic lovenox Charges/Coding Visit Charges Inpatient E&M: 88809 Subs Hosp L2
[2023-11-01] MEDS: Pantoprazole Sodium 40 MG Tablet PO (10:28)
[2023-11-01] MEDS: Calcitriol 0.25 MCG Capsule PO (10:28)
[2023-11-01] MEDS: Aspirin 81 MG TAB.CHEW PO (10:29)
[2023-11-01] MEDS: 0.9% Saline Lock 10 ML Syringe IV ×4 (10:29→21:22)
[2023-11-01] MEDS: dilTIAZem CD 120 MG Capsule PO (10:29)
[2023-11-01] MEDS: Enoxaparin 80 MG/0.8 ML Syringe SC ×2 (10:29→21:23)
[2023-11-01] MEDS: Magnesium Chloride 64 MG Delay Rel.Tablet 128 MG PO (10:29)
[2023-11-01] MEDS: Ascorbic Acid 500 MG Tablet PO (10:29)
[2023-11-01] MEDS: Hydroxyurea 500 MG Capsule 1500 MG PO (10:29)
[2023-11-01] MEDS: Metoprolol Tartrate 50 MG Tablet 150 MG PO (10:29)
[2023-11-01] MEDS: Escitalopram Oxalate 10 MG Tablet 5 MG PO (10:30)
[2023-11-01] MEDS: Cefepime HCl 2 GM in 0.9% Normal Saline (100mL MB+) 100 ML IV ×2 (10:39→21:22)
[2023-11-01] MEDS: Calcium Carbonate 500 MG Tablet 1000 MG PO ×2 (12:22→16:29)
[2023-11-01] MEDS: MELATONIN 3 MG TABLET 6 MG PO (22:29)
[2023-11-02] VITALS (9 sets, daily range): BP systolic 150–178; BP diastolic 81–90; PULSE 85–110; RESP 18–20; TEMP 36.5–36.9; O2SAT 98–99
[2023-11-02] MEDS: Acetaminophen 325 MG Tablet 650 MG PO ×6 (03:15→22:09)
[2023-11-02] MEDS: 0.9% Saline Lock 10 ML Syringe IV ×4 (03:15→22:08)
[2023-11-02] MEDS: Vancomycin IV 1,000 MG/200 ML BAG 200 MG IV (03:15)
[2023-11-02] MEDS: metroNIDAZOLE 500 MG Tablet PO ×3 (06:43→21:00)
[2023-11-02] MEDS: Budesonide Respules 0.5 MG/2 ML AMPUL.NEB. INHALATION ×2 (06:57→20:37)
[2023-11-02] MEDS: Ipratropium/Albuterol Sulfate 3 ML AMPUL.NEB INHALATION ×2 (06:57→20:37)
[2023-11-02] MEDS: Aspirin 81 MG TAB.CHEW PO (07:38)
[2023-11-02] MEDS: Escitalopram Oxalate 10 MG Tablet 5 MG PO (07:38)
[2023-11-02] MEDS: Hydroxyurea 500 MG Capsule 1500 MG PO (07:38)
[2023-11-02] MEDS: Calcitriol 0.25 MCG Capsule PO (07:38)
[2023-11-02] MEDS: Pantoprazole Sodium 40 MG Tablet PO (07:38)
[2023-11-02] MEDS: Calcium Carbonate 500 MG Tablet 1000 MG PO ×3 (07:38→17:03)
[2023-11-02] MEDS: Magnesium Chloride 64 MG Delay Rel.Tablet 128 MG PO (07:39)
[2023-11-02] MEDS: Metoprolol Tartrate 50 MG Tablet 150 MG PO (07:39)
[2023-11-02] MEDS: Ascorbic Acid 500 MG Tablet PO (07:39)
[2023-11-02] MEDS: dilTIAZem CD 120 MG Capsule PO (07:39)
[2023-11-02] MEDS: Enoxaparin 80 MG/0.8 ML Syringe SC ×2 (07:40→21:00)
[2023-11-02] MEDS: Cefepime HCl 2 GM in 0.9% Normal Saline (100mL MB+) 100 ML IV ×2 (09:14→20:59)
--- NOTE | 2023-11-02 11:25 | PCM.PN.HOSP ---
Subjective Subjective Doing well, no issues overnight Objective Data Objective Data Vital Signs: Vital Signs Temp Pulse Resp BP Pulse Ox O2 Del Method 98.5 F 87 18 150/87 H 99 Room Air 11/02/23 09:14 11/02/23 09:14 11/02/23 09:14 11/02/23 09:14 11/02/23 09:14 11/02/23 09:14 Oxygen Delivery Method Room Air Weight: 188 lb 7.924 oz Body Mass Index (BMI) 27.0 Intake & Output: Intake and Output for Last 24 Hours 11/01/23 11/02/23 11/03/23 03:59 03:59 03:59 Intake Total 1500 / 1500 2080 / 2080 500 / 500 Output Total 550 / 550 Balance 950 / 950 0 / 2080 500 / 500 Lab / Micro Data 11/01/23 05:48 11/01/23 05:48 Rhythm Strip Rhythm Strip: Sinus Tach (PACs) Rate: 102 Ectopy: None Physical Exam Narrative General: Alert, Oriented x3, Cooperative, No apparent distress HEENT: Atraumatic, PERRLA, EOMI, Normocephalic Oral: Moist Mucosa Neck: Supple, No JVD, no tenderness to palpation of right mastoid Lungs: Diminished, Normal air movement, No rhonchi, No wheeze, No rales Cardiovascular: Regular rate, Regular Rhythm, Normal S1, Normal S2, No murmurs Abdomen: Soft, Non Tender, Non-Distended, No Hepato-splenomegaly Extremities: No edema, Capillary Refill Less than 3 Seconds Skin: No rashes, No breakdown Musculoskeletal: No Tenderness to Palpation of Joints or Extremities Neurological: No focal neurological deficits, Motor Exam 5/5 strength throughout, Sensory exam intact to light touch and pain Psych/Mental Status: Normal Affect, Appropriate Assessment & Plan Assessment/Plan (1) TIA (transient ischemic attack): (2) Hypocalcemia: PLAN: Plan 1. Expressive aphasia/hypomagnesemia and hypocalcemia/acute mastoiditis ? Unclear if this is TIA versus severe electrolyte derangement ? MRI was negative for stroke but it did show severe right mastoiditis which is consistent with his history of CLL in the setting of ear infection for about 2 weeks recently, he denies any pain to palpation of his mastoid ? Appreciate infectious disease assistance, may need transfer versus outpatient follow-up with ENT 2. CLL with a history of DVT ? Continue follow-up with oncology as an outpatient, continue with his home meds ? Will hold Xarelto for the possibility of intervention and placed on therapeutic Lovenox, he does have an IVC filter placed as he does have a history of GI bleeds 3. Essential HTN ? Blood pressure stable, can resume blood pressure medication tomorrow morning -Monitor make adjustments as necessary 4. GERD ? Stable ? Continue with PPI 5. Anxiety/depression ? Stable ? Continue with his home medications DVT: Therapeutic lovenox Charges/Coding Visit Charges Inpatient E&M: 15999 Subs Hosp L2
[2023-11-02 15:53] LABS: Vancomycin, Trough Level 22.7 ug/mL (5.0-15.0)
--- NOTE | 2023-11-02 16:25 | PCM.RX.CS ---
Consult Type of Intervention Type of Consult: Follow-up Suspected Infection Suspected Infection: Other (MASTOIDITIS) Labs Labs: Sodium 143 mmol/L (136-145) 11/01/23 05:48 Potassium 4.8 mmol/L (3.5-5.1) 11/01/23 05:48 Chloride 115 mmol/L (98-107) H 11/01/23 05:48 Carbon Dioxide 23.0 mmol/L (21.0-32.0) 11/01/23 05:48 Anion Gap 5 (5-15) 11/01/23 05:48 BUN 28 mg/dL (7-18) H 11/01/23 05:48 Creatinine 1.31 mg/dL (0.70-1.30) H 11/01/23 05:48 Est GFR (MDRD) Af Amer 70 mL/min (>60) 11/01/23 05:48 Est GFR (MDRD) Non-Af 58 mL/min (>60) L 11/01/23 05:48 BUN/Creatinine Ratio 21.4 RATIO (10-20) H 11/01/23 05:48 Glucose 103 mg/dL (74-106) 11/01/23 05:48 Vancomycin Trough 22.7 ug/mL (5.0-15.0) H 11/02/23 14:50 Pharmacy Plan for Drug Dosing Pharmacy Plan for Drug Dosing: VANCOMYCIN LEVEL RECEIVED Current Vancomycin Dose: 1000MG Q12 Number of Doses Received: 6 Vancomycin Level: 22.7 mg/dL Hours Since Last Dose: 11.5 Renal Function: SCr 1.31 mg/dL (10/31), CrCl 54 mL/min Renal Function Trend: stable Lab/Micro: none Vancomycin Plan/Comments: 11.5 hour trough is supratherapeutic at 22.7 mg/dL (goal 15-20 mg/dL). Will hold dosing for now and get a random level in 8 hours since level is not that high above goal. Pending Level: 11/02/23 @ 2300 Pharmacy Service will continue to monitor and adjust dosing as required.
[2023-11-02] MEDS: MELATONIN 3 MG TABLET 6 MG PO (22:32)
[2023-11-02 23:20] LABS: Vancomycin, Random Level 17.8 ug/mL (0.0-15.0)
--- NOTE | 2023-11-02 23:45 | PCM.RX.CS ---
Consult Antibiotic Management Pharmacy has been consulted to manage selected antibiotic: Vancomycin Type of Intervention Type of Consult: Follow-up Labs Labs: Sodium 143 mmol/L (136-145) 11/01/23 05:48 Potassium 4.8 mmol/L (3.5-5.1) 11/01/23 05:48 Chloride 115 mmol/L (98-107) H 11/01/23 05:48 Carbon Dioxide 23.0 mmol/L (21.0-32.0) 11/01/23 05:48 Anion Gap 5 (5-15) 11/01/23 05:48 BUN 28 mg/dL (7-18) H 11/01/23 05:48 Creatinine 1.31 mg/dL (0.70-1.30) H 11/01/23 05:48 Est GFR (MDRD) Af Amer 70 mL/min (>60) 11/01/23 05:48 Est GFR (MDRD) Non-Af 58 mL/min (>60) L 11/01/23 05:48 BUN/Creatinine Ratio 21.4 RATIO (10-20) H 11/01/23 05:48 Glucose 103 mg/dL (74-106) 11/01/23 05:48 Vancomycin Trough 22.7 ug/mL (5.0-15.0) H 11/02/23 14:50 Random Vancomycin 17.8 ug/mL (0.0-15.0) H 11/02/23 22:54 Dosing Weight Weight used for dosin.5 kg Estimated Creatinine Clearance Estimated Creatinine Clearance: 54 Goal Trough Goal Trough: 15-20 mcg/mL Pharmacy Plan for Drug Dosing Pharmacy Plan for Drug Dosing: Random vancomycin level returned to below 20mcg/ml at 17.8, so will resume dosing. Dosing calculator estimates giving 750mg q12h will give an estimated trough of 18.6. Another level will be drawn prior to the fourth dose of the new regimen. Pharmacy Service will continue to monitor and adjust dosing as required. Follow-Up Labs Follow-Up Labs: Trough: Vancomycin Date/Time Labs Ordered Labs to be done on [date and time ordered]: 11/04/23 @4427
[2023-11-02] MEDS: Vancomycin HCl 750 MG in 0.9% Normal Saline (250mL Bag) 250 ML 250 MG IV (23:56)
[2023-11-03] VITALS (8 sets, daily range): BP systolic 127–159; BP diastolic 85–97; PULSE 95–125; RESP 18–20; TEMP 36.7–36.8; O2SAT 97–100
[2023-11-03 06:06] LABS: Absolute Lymphocyte Count 33.11 X10^3/uL (0.83-4.51); Absolute Neutrophil Count 2.1 X10^3/uL (2.0-7.7); Basophil# 0.05 X10^3/uL; Basophil% 0.1 % (0-1); Eosinophil# 0.01 X10^3/uL; Hematocrit 30.2 % (40-54); Hemoglobin 9.8 g/dL (13.0-16.5); Lymphocyte # 33.11 X10^3/ul (0.83-4.51); Lymphocyte % 87.1 % (19-41); Mean Corp Hgb Conc 32.5 g/dL (32-36); Mean Corpuscular Hgb 45.2 pg (27.0-32.0); Mean Corpuscular Volume 139.2 fL (80-94); Mean Platelet Vol. 9.3 fl (6.2-12.0); Monocyte# 2.64 X10^3/uL; Monocyte% 6.9 % (0-10); NRBC Flagged by Analyzer 0.3 % (0-5); Neutrophil # 2.09 X10^3/uL (2.7-7.7); Neutrophil % 5.6 % (47-70); POSITIVE COUNT YES; POSITIVE DIFFERENTIAL YES; POSITIVE MORPHOLOGY YES; Platelet Count 288 K/mm3 (150-450); RBC Distribution Width CV 18.4 % (11.6-14.6); RBC Distribution Width SD 94.9 fl (35.1-43.9); Red Blood Count 2.17 M/mm3 (4.6-6.2)
[2023-11-03 06:11] LABS: Differential Indicated SCAN CRITERIA MET
[2023-11-03] MEDS: Acetaminophen 325 MG Tablet 650 MG PO ×2 (06:26→10:55)
[2023-11-03] MEDS: metroNIDAZOLE 500 MG Tablet PO (06:26)
[2023-11-03 06:34] LABS: Anion Gap 6 (5-15); BUN 31 mg/dL (7-18); BUN/Creat Ratio 22.6 RATIO (10-20); Calcium,Total 9.3 mg/dL (8.5-10.1); Chloride 112 mmol/L (98-107); Creatinine, Serum 1.37 mg/dL (0.70-1.30); EST Glomerular Filtration Rate 55 mL/min (>60); Est Glom Filt Rate - Afr Amer 66 mL/min (>60); Glucose 112 mg/dL (74-106); Sodium Level 139 mmol/L (136-145)
[2023-11-03] MEDS: Ipratropium/Albuterol Sulfate 3 ML AMPUL.NEB INHALATION ×2 (07:18→12:39)
[2023-11-03] MEDS: Budesonide Respules 0.5 MG/2 ML AMPUL.NEB. INHALATION (07:19)
[2023-11-03 08:28] LABS: Anisocytosis 2+; Differential Comment SCANNED; Reactive Lymphocyte 2+
[2023-11-03] MEDS: Enoxaparin 80 MG/0.8 ML Syringe SC (08:54)
[2023-11-03] MEDS: Metoprolol Tartrate 50 MG Tablet 150 MG PO (08:54)
[2023-11-03] MEDS: Aspirin 81 MG TAB.CHEW PO (08:55)
[2023-11-03] MEDS: Magnesium Chloride 64 MG Delay Rel.Tablet 128 MG PO (08:55)
[2023-11-03] MEDS: Escitalopram Oxalate 10 MG Tablet 5 MG PO (08:55)
[2023-11-03] MEDS: Ascorbic Acid 500 MG Tablet PO (08:55)
[2023-11-03] MEDS: Calcitriol 0.25 MCG Capsule PO (08:55)
[2023-11-03] MEDS: Pantoprazole Sodium 40 MG Tablet PO (08:55)
[2023-11-03] MEDS: Calcium Carbonate 500 MG Tablet 1000 MG PO ×2 (08:55→12:22)
[2023-11-03] MEDS: dilTIAZem CD 120 MG Capsule PO (08:55)
--- NOTE | 2023-11-03 09:28 | PCM.PN.HOSP ---
Reason for Visit Reason for Visit: Diagnoses Malignant neoplasm of right kidney, except renal pelvis (10/30/23) Chronic lymphocytic leukemia of B-cell type not having achieved remission (10/30/23) Hypocalcemia (10/30/23) Transient cerebral ischemic attack, unspecified (10/30/23) Unspecified mastoiditis, right ear (10/30/23) Chronic kidney disease, stage 3 unspecified (10/30/23) Objective Data Objective Data Vital Signs: Vital Signs Temp Pulse Resp BP Pulse Ox O2 Del Method 98.2 F 125 H 18 152/85 H 97 Room Air 11/03/23 04:16 11/03/23 08:54 11/03/23 04:16 11/03/23 04:16 11/03/23 04:16 11/03/23 09:15 Oxygen Delivery Method Room Air Weight: 188 lb 7.924 oz Body Mass Index (BMI) 27.0 Intake & Output: Intake and Output for Last 24 Hours 11/01/23 11/02/23 11/03/23 23:59 23:59 23:59 Intake Total 2140 / 2440 2260 / 2260 265 / 265 Output Total 1000 / 1000 Balance 2140 / 2440 2260 / 2260 -735 / -735 Lab / Micro Data 11/03/23 05:58 11/03/23 05:58 Labs: Laboratory Results - last 24 hr 11/02/23 14:50: Vancomycin Trough 22.7 H 11/02/23 22:54: Random Vancomycin 17.8 H 11/03/23 05:58: WBC 38.0 H*, RBC 2.17 L, Hgb 9.8 L, Hct 30.2 L, MCV 139.2 H, MCH 45.2 H, MCHC 32.5, RDW Std Deviation 94.9 H, RDW Coeff of Susan 18.4 H, Plt Count 288, MPV 9.3, Immature Gran % (Auto) 0.300, Neut % (Auto) 5.6 L, Lymph % (Auto) 87.1 H, [place] % (Auto) 6.9, Eos % (Auto) 0.0, Baso % (Auto) 0.1, Absolute Neuts (auto) 2.1, Absolute Lymphs (auto) 33.11 H, Nucleated RBC % 0.3, Differential Comment SCANNED, Diff Path Review May foll, Reactive Lymphocytes 2+, Anisocytosis 2+, Sodium 139, Potassium 5.0, Chloride 112 H, Carbon Dioxide 21.0, Anion Gap 6, BUN 31 H, Creatinine 1.37 H, Estim Creat Clear Calc 51.80, Est GFR (MDRD) Af Amer 66, Est GFR (MDRD) Non-Af 55 L, BUN/Creatinine Ratio 22.6 H, Glucose 112 H, Calcium 9.3 Rhythm Strip Rhythm Strip: Sinus Tach (PACs) Rate: 102 Ectopy: None Assessment & Plan Assessment/Plan (1) TIA (transient ischemic attack): (2) Hypocalcemia: PLAN: Plan 1. Expressive aphasia/hypomagnesemia and hypocalcemia/acute mastoiditis ? Unclear if this is TIA versus severe electrolyte derangement ? MRI was negative for stroke but it did show severe right mastoiditis which is consistent with his history of CLL in the setting of ear infection for about 2 weeks recently, he denies any pain to palpation of his mastoid ? Appreciate infectious disease assistance, may need transfer versus outpatient follow-up with ENT 2. CLL with a history of DVT ? Continue follow-up with oncology as an outpatient, continue with his home meds ? Will hold Xarelto for the possibility of intervention and placed on therapeutic Lovenox, he does have an IVC filter placed as he does have a history of GI bleeds 3. Essential HTN ? Blood pressure stable, can resume blood pressure medication tomorrow morning -Monitor make adjustments as necessary 4. GERD ? Stable ? Continue with PPI 5. Anxiety/depression ? Stable ? Continue with his home medications DVT: Therapeutic lovenox
--- NOTE | 2023-11-03 10:02 | CASEMGMT ---
TCU has accepted patient. Await patient being medically ready. Liz Cardoso CALL CENTER OPERATIONS MANAGER QAMAR
[2023-11-03] MEDS: Cefepime HCl 2 GM in 0.9% Normal Saline (100mL MB+) 100 ML IV (10:51)
--- NOTE | 2023-11-03 11:38 | EKG12_ITS ---
Test Reason : Blood Pressure : / mmHG Vent. Rate : 104 BPM Atrial Rate : 104 BPM P-R Int : 134 ms QRS Dur : 094 ms QT Int : 328 ms P-R-T Axes : 052 -65 060 degrees QTc Int : 431 ms Sinus tachycardia with Premature atrial complexes and Premature ventricular complexes or Fusion compl exes Left axis deviation Abnormal ECG When compared with ECG of 29-OCT-2023 14:05, Fusion complexes are now Present Premature ventricular complexes are now Present Confirmed by DONTA COLINDRES, PETRONA ([id number]), website/blog editor TORI VARGAS ([id number]) on 11/04/2023 8:26:50 AM Referred By: BOOKER Confirmed By:PETRONA LONGO MD
[2023-11-03] MEDS: Vancomycin HCl 750 MG in 0.9% Normal Saline (250mL Bag) 250 ML 250 MG IV (12:22)
[2023-11-03] MEDS: 0.9% Saline Lock 10 ML Syringe IV ×2 (12:22→13:47)
--- NOTE | 2023-11-03 12:35 | DCINST_ITS ---
Discharge Instructions Diet Discharge Diet: 2000 mg Sodium Diet Activity Discharge Activity: Return to Normal Activity Weight Bearing Status: Weight bearing as tolerated Dressing / Incision Call your doctor if you observe: Fever of 101 or Higher, Coldness, Increased Pain, Numbness or Tingling, Change in Color, Inability to urinate, Inability to have a bowel movement, Shortness of breath, Dizziness, Fainting spells, Swelling in the ankles, Chest pain, Prolonged hiccupping, Increased palpitations (irregular heartbeat) and Calf discomfort Follow Up Care When: IN 2 WEEKS Test Results: Test results from this visit will be discussed in further detail at your follow- up appointment, if applicable. Discharge Plan Admission Admit Date/Time: 10/30/23 15:29 Primary Reason for Your Visit: Expressive aphasia, Right mastoiditis Attending Provider: Eric Oseguera Primary Care Provider: Leighton Orozco Chi Consulting Providers: Tripp Rodriguez; Malinda Escobar; Tiesha Phillip; Monisha Kuo; Marley Diaz; Abiodun Crabtree; Brigette Paul; Marek Beyer; Ulysses Torres; Albino Quiroz; Eloise Fraser; Ritesh Rojo; Elvie Otero; Ena Saunders; Alton Montilla; Deonte Valencia; Latrell Do; Chadd Rowland; Maribel Denis; Melquiades Elizabeth; Quentin Chapman; Gregg Mcdonnell; Manohar Au Discharge Orders/Prescriptions Prescriptions: No Action ascorbic acid (vitamin C) 500 mg tablet 500 mg PO DAILY escitalopram oxalate [Lexapro] 5 mg tablet 5 mg PO DAILY magnesium oxide 400 mg magnesium tablet 400 mg PO DAILY Xarelto 20 mg tablet 10 mg PO DAILY Rx Instructions: must administer with evening meal hydroxyurea 500 mg capsule 1,500 mg PO DAILY acetaminophen [Tylenol] 325 mg capsule 650 mg PO Q4H albuterol sulfate 90 mcg/actuation HFA aerosol inhaler 1 inh INHALATION Q4H PRN (Reason: shortness of breath or wheezing) omeprazole 40 mg capsule,delayed release(DR/EC) 40 mg PO DAILY Patient Comments: TAKE 1 CAPSULE BY MOUTH ONCE DAILY zolpidem 5 mg tablet 10 mg PO QHS PRN PRN (Reason: sleep) metoprolol tartrate 100 mg tablet 150 mg PO DAILY ergocalciferol (vitamin D2) 1,250 mcg (50,000 unit) capsule 50,000 unit PO QMONTH Patient Comments: TAKE 1 CAPSULE BY MOUTH ONCE EVERY MONTH Repatha SureClick 140 mg/mL pen injector 140 mg SUBCUT QMONTH Patient Comments: INJECT 140 MG SUBCUTANEOUSLY ONCE EVERY MONTH calcitriol 0.25 mcg capsule 0.25 mcg PO DAILY amlodipine 5 mg tablet 5 mg PO DAILY ergocalciferol (vitamin D2) 1,000 unit capsule 50 mcg PO DAILY diltiazem HCl [DILT-XR] 120 mg capsule,ext.rel 24h degradable 120 mg PO Q24H fluticasone propionate 50 mcg/actuation spray,suspension 1 spray INTRANASAL BID Referrals / Follow Up: Leighton Orozco Chi, MD [Primary Care Provider] -
--- NOTE | 2023-11-03 13:17 | TREXTCAR_ITS ---
Diet Diet Order/Speech Therapy: 10/29/23 18:17 Diet: Cardiac - Heart Healthy Food consistency:: Regular Liquid Consistency:: Regular/Thin Type of Dietary Supplement:: Ensure Plus High Protein Is pt able to select menu?: Yes Diet Comments: milkshake -120ml rome. EPHP mixed with rome. icecream at lunch Routine Orders/Code Status Suppository Type: Dulcolax 10mg Suppository Frequency: Daily PRN Wound(s) rt upper arm: Wound Type: Skin Tear Therapies Extremity Affected:: Bilateral Lower Physical Therapy: Eval and Treat Occupational Therapy: Eval and Treat Speech Therapy: Eval and Treat Problem/Diagnosis (1) TIA (transient ischemic attack): Status: Acute Code(s): G45.9 - Transient cerebral ischemic attack, unspecified (2) Hypocalcemia: Status: Acute Code(s): E83.51 - Hypocalcemia Plan 1. Expressive aphasia/hypomagnesemia and hypocalcemia/acute mastoiditis ? Unclear if this is TIA versus severe electrolyte derangement ? MRI was negative for stroke but it did show severe right mastoiditis which is consistent with his history of CLL in the setting of ear infection for about 2 weeks recently, he denies any pain to palpation of his mastoid ? Appreciate infectious disease assistance, may need transfer versus outpatient follow-up with ENT 2. CLL with a history of DVT ? Continue follow-up with oncology as an outpatient, continue with his home meds ? Will hold Xarelto for the possibility of intervention and placed on therapeutic Lovenox, he does have an IVC filter placed as he does have a history of GI bleeds 3. Essential HTN ? Blood pressure stable, can resume blood pressure medication tomorrow morning -Monitor make adjustments as necessary 4. GERD ? Stable ? Continue with PPI 5. Anxiety/depression ? Stable ? Continue with his home medications DVT: Therapeutic lovenox Allergies/Procedures Done in Hospital Allergies Penicillins Allergy (Verified 10/29/23 13:11) PT UNSURE OF REACTION Occurred in childhood ~ 8 y.o doxycycline Adverse Reaction (Unknown, Verified 10/29/23 13:11) Upset Stomach Type of Care/Length of Stay Estimated LOS: Convalescent Care Less Than 30 days Type of Care Needed: Skilled Rehab Potential: Good Prognosis: Good Additional Orders/Day of Discharge Day of Discharge: 07/22/24 Dietary and Speech Recommendations Dietitian Recommendations/Changes: Continue Cardiac diet to manage medical conditions. Will discontinue ensure with medpass. Will order chocolate ensure with chocolate ice cream milkshake at lunch to provide supplemental energy Discharge Plan Admission Admit Date/Time: 10/30/23 15:29 Primary Reason for Your Visit: Expressive aphasia, Right mastoiditis Attending Provider: Eric Oseguera Primary Care Provider: Leighton Orozco Chi Consulting Providers: Tripp Rodriguez; Malinda Escobar; Tiesha Phillip; Monisha Kuo; Marley Diaz; Abiodun Crabtree; Brigette Paul; Marek Beyer; Ulysses Torres; Albino Quiroz; Eloise Fraser; Ritesh Rojo; Elvie Otero; Ena Saunders; Alton Montilla; Deonte Valencia; Latrell Do; Chadd Rowland; Maribel Denis; Melquiades Elizabeth; Quentin Chapman; Gregg Mcdonnell; Manohar Au Instructions Additional Instructions / Restrictions: Hold Xarelto if platelet count drops less than 50,000 or hemoglobin less than 8 g% or significant bleeding Discharge Orders/Prescriptions Prescriptions: Continued ascorbic acid (vitamin C) 500 mg tablet 500 mg PO DAILY escitalopram oxalate [Lexapro] 5 mg tablet 5 mg PO DAILY magnesium oxide 400 mg magnesium tablet 400 mg PO DAILY Xarelto 20 mg tablet 10 mg PO DAILY Rx Instructions: must administer with evening meal hydroxyurea 500 mg capsule 1,500 mg PO DAILY acetaminophen [Tylenol] 325 mg capsule 650 mg PO Q4H albuterol sulfate 90 mcg/actuation HFA aerosol inhaler 1 inh INHALATION Q4H PRN (Reason: shortness of breath or wheezing) omeprazole 40 mg capsule,delayed release(DR/EC) 40 mg PO DAILY Patient Comments: TAKE 1 CAPSULE BY MOUTH ONCE DAILY zolpidem 5 mg tablet 10 mg PO QHS PRN PRN (Reason: sleep) metoprolol tartrate 100 mg tablet 150 mg PO DAILY ergocalciferol (vitamin D2) 1,250 mcg (50,000 unit) capsule 50,000 unit PO QMONTH Patient Comments: TAKE 1 CAPSULE BY MOUTH ONCE EVERY MONTH Repatha SureClick 140 mg/mL pen injector 140 mg SUBCUT QMONTH Patient Comments: INJECT 140 MG SUBCUTANEOUSLY ONCE EVERY MONTH calcitriol 0.25 mcg capsule 0.25 mcg PO DAILY amlodipine 5 mg tablet 5 mg PO DAILY ergocalciferol (vitamin D2) 1,000 unit capsule 50 mcg PO DAILY diltiazem HCl [DILT-XR] 120 mg capsule,ext.rel 24h degradable 120 mg PO Q24H fluticasone propionate 50 mcg/actuation spray,suspension 1 spray INTRANASAL BID Referrals / Follow Up: David Lainez MD [Med Staff - Active Staff] - Within 1 Week (right mastoiditis, MRI imaging ) Leighton Orozco Chi, MD [Primary Care Provider] - Disposition Disposition (needs filled in before D/C Order can be placed): Assisted Facility
--- NOTE | 2023-11-03 13:19 | PCM.DC.SUM ---
Providers Date of Admission: 10/30/23 Date of Discharge: 11/03/23 Primary Care Physician: Dr. Leighton Orozco MD Consultations 10/29/23 18:17 Consult: Tele-Neurology Routine Consulting Provider: [facility] Reason for Consult: Acute Ischemic Stroke/TIA EMERGENT Consult: No Notified: Yes Date Notified: 10/29/23 Time Notified: 17:56 Method of Notification: Text Nursing Unit Staff Notify [facility] of Tele-Neurology Consult: Yes 10/30/23 14:54 Consult: Infectious Disease Routine Consulting Provider: Gregg Mcdonnell Reason for Consult: Mastoiditis in pt with CLL EMERGENT Consult: No Notified: Yes Date Notified: 10/30/23 Time Notified: 15:03 Method of Notification: Answering Service Reason For Visit: TIA Diagnosis Discharge Diagnosis (1) TIA (transient ischemic attack): Status: Acute Code(s): G45.9 - Transient cerebral ischemic attack, unspecified (2) Hypocalcemia: Status: Acute Code(s): E83.51 - Hypocalcemia Plan 68-year-old gentleman was admitted with acute onset of expressive aphasia, feeling weak. Patient has been having headache for past 2 days. Expressive aphasia lasted for about 20 to 30 minutes. 1. Expressive aphasia/hypomagnesemia and hypocalcemia possible TIA/ electrolyte abnormality: Patient was admitted in PCU. Patient had CT head and CTA head and neck which does not show acute process. CTA head and neck showed mild 40% stenosis of right carotid stenosis and moderate 60% left carotid stenosis. Furthermore MRI was done which was negative for acute stroke 2. Concern for acute on chronic mastoiditis: MRI brain reported severe right mastoiditis. This images were reviewed by ENT surgeon Dr. David Lainez and does not agree with acute mastoiditis. Patient has chronic right ear pain and completed a course of Z-Mario and levofloxacin for 10 days as an outpatient without any benefit. Patient was started on IV antibiotics under consultation of Dr. Mcdonnell. Failed outpatient levofloxacin. Was started on vancomycin cefepime and Flagyl. Had ID follow-up today and recommended discharge on 10 days of linezolid, cefepime and Flagyl. Follow-up outpatient appointment with Dr. Hernandez was made on 11/06/2023 3. CLL with a history of DVT ? Continue follow-up with oncology as an outpatient, continue with his home meds. During inpatient, he was on therapeutic dose of enoxaparin. Patient on Xarelto continued. He does have an IVC filter placed as he does have a history of GI bleeds 3. Essential HTN ? Blood pressure 4. GERD\ ? Continue with PPI 5. Anxiety/depression ? Continue with his home medications DVT: Discharged on Xarelto. Discharge medication reconciliation done. Discharge follow-up instructions completed. Discharge process discussed with the patient and all questions were answered to patient's satisfaction. Follow with PCP in 1 to 2 weeks Total time spent, exact 35 minutes on discharge meds reconciliation, examination, coordination of care with nurses and ancillary staff, review of imaging and blood test and discussion with the patient on follow-up instructions. Medications at Discharge Home Medications acetaminophen 325 mg capsule (Tylenol) 650 mg PO Q4H Pain 12/26/22 albuterol sulfate 90 mcg/actuation aerosol inhaler 1 inh inhalation Q4H PRN shortness of breath or wheezing 12/26/22 omeprazole 40 mg capsule,delayed release 40 mg PO DAILY GERD 12/26/22 zolpidem 5 mg tablet 10 mg PO QHS PRN PRN sleep 12/26/22 escitalopram oxalate 5 mg tablet (Lexapro) 5 mg PO DAILY 01/30/23 ascorbic acid (vitamin C) 500 mg tablet 500 mg PO DAILY 02/06/23 magnesium oxide 400 mg PO DAILY 02/06/23 ergocalciferol (vitamin D2) 1,250 mcg (50,000 unit) capsule 50,000 unit PO QMONTH 08/19/23 evolocumab 140 mg/mL subcutaneous pen injector (Repatha SureClick) 140 mg subcut QMONTH 08/19/23 hydroxyurea 500 mg capsule 1,500 mg PO DAILY 10/07/23 metoprolol tartrate 100 mg tablet 150 mg PO DAILY BP 10/07/23 rivaroxaban 20 mg tablet (Xarelto) 10 mg PO DAILY 10/07/23 calcitriol 0.25 mcg capsule 0.25 mcg PO DAILY 10/23/23 amlodipine 5 mg tablet 5 mg PO DAILY 10/29/23 diltiazem HCl 120 mg capsule,extended release 24 hr, controlled (DILT-XR) 120 mg PO Q24H 10/29/23 ergocalciferol (vitamin D2) 1,000 unit capsule 50 mcg PO DAILY 10/29/23 fluticasone propionate 50 mcg/actuation nasal spray,suspension 1 spray intranasal BID 10/29/23 cefdinir 300 mg capsule 300 mg PO Q12H 10 days #20 caps 11/03/23 linezolid 600 mg tablet 600 mg PO Q12H 10 days #20 tabs 11/03/23 metronidazole 500 mg tablet 500 mg PO TID #30 tabs 11/03/23 Physical Exam Narrative Seen and examined. No fever. Heart rate and blood pressure is controlled. General: Alert, Oriented x3, Cooperative HEENT: No tenderness of right or left mastoid process. No otalgia or TM joint tenderness or pain on movement. Hard of hearing. Tinnitus. Atraumatic, PERRLA, EOMI, Normocephalic Oral: No Gingival or Mucosal Lesions/ Ulcerations Neck: Supple, No JVD, Negative Carotid Bruits Chest wall/Lungs: Air entry diminished in bilateral lung bases. No crepitation/rhonchi Cardiovascular: Regular rate, Regular Rhythm, Normal S1, Normal S2, No M/G/R Abdomen: Bowel Sounds Present, Soft, Non Tender, Non-Distended : No dysuria. No renal angle tenderness. No suprapubic tenderness. Extremities: No edema, Capillary Refill Less than 3 Seconds Skin: No rashes, No breakdown Musculoskeletal: No Tenderness to Palpation of Joints or Extremities Neurological: Cranial nerves II-XII grossly intact, DTR 2+/4. No acute focal neurological deficit. Psych/Mental Status: Normal Affect, Appropriate. Weight / BMI Weight Weight: 188 lb 7.924 oz Body Mass Index (BMI) 27.0 ABG / Lab / Microbiology Data 11/03/23 05:58 11/03/23 05:58 Laboratory: Laboratory Results - last 24 hr 11/02/23 14:50: Vancomycin Trough 22.7 H 11/02/23 22:54: Random Vancomycin 17.8 H 11/03/23 05:58: WBC 38.0 H*, RBC 2.17 L, Hgb 9.8 L, Hct 30.2 L, MCV 139.2 H, MCH 45.2 H, MCHC 32.5, RDW Std Deviation 94.9 H, RDW Coeff of Susan 18.4 H, Plt Count 288, MPV 9.3, Immature Gran % (Auto) 0.300, Neut % (Auto) 5.6 L, Lymph % (Auto) 87.1 H, Fallon % (Auto) 6.9, Eos % (Auto) 0.0, Baso % (Auto) 0.1, Absolute Neuts (auto) 2.1, Absolute Lymphs (auto) 33.11 H, Nucleated RBC % 0.3, Differential Comment SCANNED, Diff Path Review May foll, Reactive Lymphocytes 2+, Anisocytosis 2+, Sodium 139, Potassium 5.0, Chloride 112 H, Carbon Dioxide 21.0, Anion Gap 6, BUN 31 H, Creatinine 1.37 H, Estim Creat Clear Calc 51.80, Est GFR (MDRD) Af Amer 66, Est GFR (MDRD) Non-Af 55 L, BUN/Creatinine Ratio 22.6 H, Glucose 112 H, Calcium 9.3 Meaningful Use Info Meaningful Use Meaningful Use Diagnoses (Choose all that apply): None applicable Ischemic Stroke Statin Dosing Therapy Reference: STATIN DOSE THERAPY REFERENCE: * Patients > 75 years receive moderate or high dose statin therapy. * Patients 75 years or YOUNGER should receive HIGH intensity statin dose unless contraindicated. You will be required to document reason for non-treatment if statin daily dose does not meet guidelines. HIGH DOSE STATIN THERAPY DAILY Atorvastatin > than or = to 40 mg Rosuvastatin > than or = to 20 mg Amlodipine + Atorvastatin > than or = to 2.5/40 mg Ezetimibe + Simvastatin 10/80 mg Simvastatin 80mg Discharge Plan Admission Admit Date/Time: 10/30/23 15:29 Primary Reason for Your Visit: Expressive aphasia, Right mastoiditis Attending Provider: Eric Oseguera Primary Care Provider: Leighton Orozco Chi Consulting Providers: Tripp Rodriguez; Malinda Escobar; Tiesha Phillip; Monisha Kuo; Marley Diaz; Abiodun Crabtree; Brigette Paul; Marek Beyer; Ulysses Torres; Albino Quiroz; Eloise Fraser; Ritesh Rojo; Elvie Otero; Ena Saunders; Roldanelier Aggarwal; Deonte Valencia; Latrell Do; Chadd Rowland; Maribel Denis; Melquiades Elizabeth; Quentin Chapman; Gregg Mcdonnell; Manohar Au Instructions Additional Instructions / Restrictions: Hold Xarelto if platelet count drops less than 50,000 or hemoglobin less than 8 g% or significant bleeding Discharge Orders/Prescriptions Prescriptions: New linezolid 600 mg tablet 600 mg PO Q12H 10 Days Qty: 20 0RF cefdinir 300 mg capsule 300 mg PO Q12H 10 Days Qty: 20 0RF metronidazole 500 mg tablet 500 mg PO TID Qty: 30 0RF Continued ascorbic acid (vitamin C) 500 mg tablet 500 mg PO DAILY escitalopram oxalate [Lexapro] 5 mg tablet 5 mg PO DAILY magnesium oxide 400 mg magnesium tablet 400 mg PO DAILY Xarelto 20 mg tablet 10 mg PO DAILY Rx Instructions: must administer with evening meal hydroxyurea 500 mg capsule 1,500 mg PO DAILY acetaminophen [Tylenol] 325 mg capsule 650 mg PO Q4H albuterol sulfate 90 mcg/actuation HFA aerosol inhaler 1 inh INHALATION Q4H PRN (Reason: shortness of breath or wheezing) omeprazole 40 mg capsule,delayed release(DR/EC) 40 mg PO DAILY Patient Comments: TAKE 1 CAPSULE BY MOUTH ONCE DAILY zolpidem 5 mg tablet 10 mg PO QHS PRN PRN (Reason: sleep) metoprolol tartrate 100 mg tablet 150 mg PO DAILY ergocalciferol (vitamin D2) 1,250 mcg (50,000 unit) capsule 50,000 unit PO QMONTH Patient Comments: TAKE 1 CAPSULE BY MOUTH ONCE EVERY MONTH Repatha SureClick 140 mg/mL pen injector 140 mg SUBCUT QMONTH Patient Comments: INJECT 140 MG SUBCUTANEOUSLY ONCE EVERY MONTH calcitriol 0.25 mcg capsule 0.25 mcg PO DAILY amlodipine 5 mg tablet 5 mg PO DAILY ergocalciferol (vitamin D2) 1,000 unit capsule 50 mcg PO DAILY diltiazem HCl [DILT-XR] 120 mg capsule,ext.rel 24h degradable 120 mg PO Q24H fluticasone propionate 50 mcg/actuation spray,suspension 1 spray INTRANASAL BID Referrals / Follow Up: David Lainez MD [Med Staff - Active Staff] - 11/06/23 12:30 am (right mastoiditis, MRI imaging ) Leighton Orozco Chi, MD [Primary Care Provider] - Disposition Disposition (needs filled in before D/C Order can be placed): Assisted Facility Charges/Coding Visit Charges Inpatient E&M: 73336 Disch Hosp >30min
--- NOTE | 2023-11-03 13:29 | PHA.DC_ITS ---
Pharmacy MD Med Reconciliation Pharmacy Service has performed discharge medication reconciliation for this patient upon transfer to TCU. The patient's discharge medication list was reviewed for discrepancies and discrepancies were resolved. Medications at Discharge Home Medications acetaminophen 325 mg capsule (Tylenol) 650 mg PO Q4H Pain 12/26/22 albuterol sulfate 90 mcg/actuation aerosol inhaler 1 inh inhalation Q4H PRN shortness of breath or wheezing 12/26/22 omeprazole 40 mg capsule,delayed release 40 mg PO DAILY GERD 12/26/22 zolpidem 5 mg tablet 10 mg PO QHS PRN PRN sleep 12/26/22 escitalopram oxalate 5 mg tablet (Lexapro) 5 mg PO DAILY 01/30/23 ascorbic acid (vitamin C) 500 mg tablet 500 mg PO DAILY 02/06/23 magnesium oxide 400 mg PO DAILY 02/06/23 ergocalciferol (vitamin D2) 1,250 mcg (50,000 unit) capsule 50,000 unit PO QMONTH 08/19/23 evolocumab 140 mg/mL subcutaneous pen injector (Kenji Hennessy) 140 mg subcut QMONTH 08/19/23 hydroxyurea 500 mg capsule 1,500 mg PO DAILY 10/07/23 metoprolol tartrate 100 mg tablet 150 mg PO DAILY BP 10/07/23 rivaroxaban 20 mg tablet (Xarelto) 10 mg PO DAILY 10/07/23 calcitriol 0.25 mcg capsule 0.25 mcg PO DAILY 10/23/23 amlodipine 5 mg tablet 5 mg PO DAILY 10/29/23 diltiazem HCl 120 mg capsule,extended release 24 hr, controlled (DILT-XR) 120 mg PO Q24H 10/29/23 ergocalciferol (vitamin D2) 1,000 unit capsule 50 mcg PO DAILY 10/29/23 fluticasone propionate 50 mcg/actuation nasal spray,suspension 1 spray intranas al BID 10/29/23
[2023-11-03] MEDS: Metoprolol Tartrate 5 MG/5 ML Vial IV (13:46)
--- NOTE | 2023-11-03 14:16 | PCM.PN.ID ---
Physical Exam Narrative Feeling better, ear pain improved, no fever, some nausea and loose stool with abx. Const alert and no apparent distress General Appearance: cooperative HEENT HEENT Narrative: No tenderness over mastoids Resp normal air movement and clear to auscultation bilaterally Cardio regular rate and regular rhythm GI soft to palpation, non-tender and non-distended Skin no rashes or lesions noted ID ID: Route of nutrition/ use of supplements: [] Nutritional Intake: [] IV Site: [] Garibay Catheter: [] Assessment & Plan Assessment/Plan (1) Mastoiditis of right side: PLAN: Failed outpt levaquin. He is unsure of PCN as a child. Feeling better with vanc/cefepime/flagyl. Planned outpt ENT eval. Ok for discharge with 10 days po linezolid, omnicef, and flagyl. Will follow (2) CLL (chronic lymphocytic leukemia): (3) CKD (chronic kidney disease), stage III: (4) Cancer of kidney: QUALIFIERS: Laterality: right Qualified Code(s): C64.1 - Malignant neoplasm of right kidney, except renal pelvis
--- NOTE | 2023-11-03 14:46 | CASEMGMT ---
YUMIKO notified Madelanie that patient is ready for discharge to TCU today. Plan: d/c to [facility] TCU under skilled level of care. Liz FOOTE
[2023-11-03 15:21] LABS: Pathologist Review Reviewed
--- NOTE | 2023-11-03 15:34 | CASEMGMT ---
YUMIKO spoke with patient and he is aware he will be going to TCU today. YUMIKO called patient's daughter Raine and she was aware patient will be moving to TCU today. Plan: d/c to [facility] TCU under skilled level of care. Liz FOOTE
[2023-11-04 11:48] LABS: Pathologist Review Reviewed
== END 2023-11-03 15:42 | disposition skilled nursing facility (03) | DRG 68 ==
LOC: ED 17:03 → PCU 17:13
PROVIDERS: Family Medicine; Internal Medicine; Emergency Provider Emergency Medicine; PCP Family Medicine Geriatric Medicine; Visit Provider Internal Medicine
DX: I65.22 Occlusion and stenosis of left carotid artery (principal); C91.10 Chronic lymphocytic leukemia of B-cell type not having achieved remission; E83.51 Hypocalcemia; E78.5 Hyperlipidemia, unspecified; E83.42 Hypomagnesemia; H70.11 Chronic mastoiditis, right ear; N18.30 Chronic kidney disease, stage 3 unspecified; F32.A Depression, unspecified; I12.9 Hypertensive chronic kidney disease with stage 1 through stage 4 chronic kidney disease, or unspecified chronic kidney disease; K21.9 Gastro-esophageal reflux disease without esophagitis; I25.10 Atherosclerotic heart disease of native coronary artery without angina pectoris; F41.9 Anxiety disorder, unspecified; Z95.828 Presence of other vascular implants and grafts; G89.29 Other chronic pain; I49.1 Atrial premature depolarization; Z95.5 Presence of coronary angioplasty implant and graft; Z90.5 Acquired absence of kidney; Z79.01 Long term (current) use of anticoagulants; Z79.82 Long term (current) use of aspirin; Z79.899 Other long term (current) drug therapy; Z86.718 Personal history of other venous thrombosis and embolism; Z87.891 Personal history of nicotine dependence
CPT/HCPCS: 36415; 70450; 70496; 70498; 70551; 71045; 80048; 80061; 80202; 82330; 82962; 83735; 84100; 84484; 85025; 85610; 85730; 93005; 93306; 94640; 94762; 97110; 97162; 97166; 97530; 97535; 97802; 99284; J7040; J7050; Q9967; A4216; J0612

== ENCOUNTER 2023-11-03 16:04 | Inpatient (IN) | payer MEDICARE, OTHER, SELFPAY ==
[2023-11-03 16:14] VITALS: BP 147/86; PULSE 94; RESP 18; TEMP 36.6; O2SAT 98; BMI 27.6
[2023-11-03] MEDS: Rivaroxaban 10 MG Tablet PO (18:11)
[2023-11-03] MEDS: Acetaminophen 325 MG Tablet 650 MG PO (18:36)
[2023-11-03] MEDS: 0.9% Saline Lock 10 ML Syringe IV (19:59)
--- NOTE | 2023-11-03 20:15 | HP.PCM_ITS ---
HPI - General General Date of Admission: 11/03/23 Date of Service: 11/03/23 Chief Complaint: Here for rehabilitation. HPI Narrative 10/29/2023 ADINA DAVID, is a 68 Male who presents to [facility] ED with general illness. Right sided headache, right sided numbness, slurred speech. Palliative nurse noted speech changes, recommended going to ER. Garbled, confused speech. Stroke alert. CT brain okay, CTA head/neck negative, No TNK 2/2 to patient on Xarelto. Expressive aphasia, neurologic symptoms improved, headache improved. Calcium 5.8. Dr. Pascual felt CLL stable, not cause of symptoms. 10/29/2023 Admit [facility]. MRI brain, Echo, Xarelto, Aspirin, PT/OT/ST for TIA. Calcium gluconate 1gm iv, check magnesium for hypocalcemia. Monitor right ear pain. 10/29/2023 Echo Normal LV. LVEF 45%. Mild global hypokinesis LV. 10/30/2023 Doing well, replace magnesium. MRI brain negative for stroke, but showed severe right mastoiditis. Vancomycin, Ceftriaxone, ID, ENT right mastoiditis. 10/31/2023 Doing well. Severe right mastoiditis 2/2 CLL. Expressive aphasia maybe 2/2 hypocalcemia, hypomagnesemia, and/or right mastoiditis. 10/31/2023 Dr. Mcdonnell recommended Vancomycin, Cefepime, Flagyl, ENT consultation for right mastoiditis. 11/01/2023 Doing well, no overnight issues. Consider transfer for ENT consultation. Hold Xarelto, start Lovenox, has IVC filter for DVT/PE. PT/OT for TCU. 11/02/2023 Doing well. Pending ENT consultation. 11/03/2023 Dr. Mcdonnell recommended 10 days of Linezolid, Omnicef, Flagyl, outpatient ENT consultation for right mastoiditis. 11/03/2023 Admit to TCU with debility, here for rehabilitation, strengthening, prior to discharge home alone. Resident to see Dr. David Lainez 11/06/2023. [facility] Medical History Recurrent deep vein thrombosis (DVT) Depressive disorder due to another medical condition with depressive features History of pulmonary embolism History of DVT (deep vein thrombosis) Iron deficiency anemia due to chronic blood loss Emphysema lung Dyslipidemia Multiple lipomas History of elevated PSA BPH (benign prostatic hyperplasia) AVM (arteriovenous malformation) of colon Chronic GI bleeding Diverticular disease History of skin cancer Multiple lung nodules Cancer of kidney Essential thrombocythemia Hydrocele Femur fracture (~2020) Pulmonary fibrosis Pulmonary embolism DVT (deep venous thrombosis) Obstructive sleep apnea Coronary artery disease CLL (chronic lymphocytic leukemia) Rhodes esophagus COPD (chronic obstructive pulmonary disease) Home Medications ?Medication ?Instructions ?Recorded ?Last Taken ?Type acetaminophen 325 mg capsule 650 mg PO Q4H Pain 12/26/22 11/03/23 10:20 History (Tylenol) albuterol sulfate 90 mcg/actuation 1 inh inhalation Q4H PRN shortness 12/26/22 Unknown History aerosol inhaler of breath or wheezing omeprazole 40 mg capsule,delayed 40 mg PO DAILY GERD 12/26/22 11/03/23 08:55 History release zolpidem 5 mg tablet 10 mg PO QHS PRN PRN sleep 12/26/22 Unknown History escitalopram oxalate 5 mg tablet 5 mg PO DAILY Mood 01/30/23 11/03/23 08:55 History (Lexapro) ascorbic acid (vitamin C) 500 mg 500 mg PO DAILY Supplement 02/06/23 11/03/23 08:55 History tablet magnesium oxide 400 mg PO DAILY GERD 02/06/23 11/03/23 08:55 History ergocalciferol (vitamin D2) 1,250 50,000 unit PO QMONTH Supplement 08/19/23 Unknown History mcg (50,000 unit) capsule evolocumab 140 mg/mL subcutaneous 140 mg subcut QMONTH Heart Health 08/19/23 Unknown History pen injector (Kenji Hennessy) hydroxyurea 500 mg capsule 1,500 mg PO DAILY Chemo 10/07/23 11/02/23 07:30 History metoprolol tartrate 100 mg tablet 150 mg PO DAILY BP 10/07/23 11/03/23 08:55 History rivaroxaban 20 mg tablet (Xarelto) 10 mg PO DAILY Blood Thinner 10/07/23 10/30/23 History calcitriol 0.25 mcg capsule 0.25 mcg PO DAILY Supplement 10/23/23 11/03/23 08:55 History amlodipine 5 mg tablet 5 mg PO DAILY BP 10/29/23 Unknown History diltiazem HCl 120 mg 120 mg PO Q24H BP 10/29/23 Unknown History capsule,extended release 24 hr, controlled (DILT-XR) ergocalciferol (vitamin D2) 1,000 50 mcg PO DAILY Supplement 10/29/23 Unknown History unit capsule fluticasone propionate 50 1 spray intranasal BID Allergies 10/29/23 Unknown History mcg/actuation nasal spray,suspension cefdinir 300 mg capsule 300 mg PO Q12H Anitbiotic 10 days 11/03/23 Unknown Rx #20 caps linezolid 600 mg tablet 600 mg PO Q12H Antibiotic 10 days 11/03/23 Unknown Rx #20 tabs metronidazole 500 mg tablet 500 mg PO TID Antibiotic #30 tabs 11/03/23 Unknown Rx Allergy/AdvReac Type Severity Reaction Status Date / Time Penicillins Allergy PT UNSURE Verified 10/29/23 13:11 OF REACTION doxycycline AdvReac Unknown Upset Verified 10/29/23 13:11 Stomach Family History Father Myocardial infarction Mother Colon cancer Surgical History History of heart artery stent (~2018) History of hernia surgery (~2021) H/O kidney removal (~2017) History of bowel resection Hx of tonsillectomy Social History household members: none Smoking Status: Former smoker pack-years: 10 alcohol intake: never substance use type: does not use, former substance user and other details: marijuana ROS Constitutional Constitutional: Reports fatigue and weakness; Denies chills, fever(s) or weight gain ENT HEENT: Denies headache(s), nasal congestion or nasal discharge Cardiovascular Cardiovascular: Denies chest pain or palpitations Respiratory/Chest Respiratory/Chest: Denies cough, excessive phlegm production or shortness of breath with exertion Gastrointestinal Gastrointestinal: Denies abdominal pain, nausea or vomiting Genitourinary Genitourinary: Denies dysuria Musculoskeletal Musculoskeletal: Denies joint pain or joint swelling Integumentary Integumentary: Denies rash or wounds Neurologic Neurologic: Denies focal weakness, numbness or tingling Psychiatric Psychiatric: Denies anxiety, auditory hallucinations, depression, homicidal ideation or suicidal ideation Vital Signs Vital Signs Vital Signs: 11/03/23 16:14 11/03/23 16:14 Temperature 97.8 F Temperature Source Temporal Pulse Rate 94 Pulse Rhythm Regular Pulse Strength Normal (2+) Respiratory Rate 18 Respiratory Effort Normal Non-Labored Respiratory Pattern Normal Blood Pressure 147/86 H Blood Pressure Mean 106 Blood Pressure Source Monitor Blood Pressure Position Sitting Blood Pressure Location Left Arm Pulse Ox 98 Oxygen Delivery Method Room Air Room Air Weight Weight: 87.543 kg Body Mass Index (BMI) 27.6 Physical Exam Const alert General Appearance: cooperative HEENT normocephalic Eyes PERRL and EOMs intact bilaterally Neck supple, no JVD and no carotid bruits Resp normal respiratory effort, normal air movement and clear to auscultation bilaterally Cardio regular rate and regular rhythm GI normal to inspection, nondistended, normoactive bowel sounds, non-tender and non-distended Extremity normal capillary refill General Extremity: Negative for edema Skin no rashes or lesions noted General Skin Exam: no breakdown Psych affect normal Appearance: appropriate Assessment & Plan Assessment/Plan (1) Debility: (2) Expressive aphasia: (3) TIA (transient ischemic attack): (4) Hypocalcemia: (5) Hypomagnesemia: (6) Acute mastoiditis of right side: (7) COPD (chronic obstructive pulmonary disease): (8) Pulmonary fibrosis: (9) Essential (primary) hypertension: (10) Coronary artery disease: (11) CLL (chronic lymphocytic leukemia): (12) GERD (gastroesophageal reflux disease): (13) Insomnia: PLAN: Plan 68 year old male with below past medical history hospitalized for expressive aphasia, dysarthria, stroke ruled out, 2/2 right mastoiditis, complicated by TIA, hypocalcemia, hypomagnesemia, admitted to TCU with debility, here for rehabilitation, strengthening, prior to discharge home alone. * Debility - PT/OT. * Pain - Tylenol 1000mg q6. * Bowel - Senna/colace 1 tablet bid, Dulcolax 10mg pr daily prn. * Adult immunization - Administer pneumonia vaccine, covid vaccine, flu vaccine as appropriate. * DVT prophylaxis - Lovenox 40mg sc daily. * COPD - Albuterol 1 puf q4h prn. * Vitamin C deficiency - Vitamin C 500mg daily. * Hyperparathyroidism - Calcitriol 0.25mcg daily. * Right mastoiditis - Cefdinir 300mg q12 thru 11/13/2023, Linezolid 600mg q12 thru 11/13/2023, Flagyl 500mg tid thru 11/13/2023, Dr. Lainez appointment 11/06/2023. * Vitamin D deficiency - D3 50mcg daily. * Hypertension - Metoprolol 150mg daily, Diltiazem 120mg daily. * Allergic rhinitis - Fluticasone 1 spray nasal bid. * Thrombocythemia - Hydrea 1500mg daily. * Hypomagnesemia - Magnesium chloride 128mg daily. * GERD - Pantoprazole 40mg daily. * DVT/PE s/p IVC filter - Hold Xarelto 10mg daily, use Lovenox in case Dr. Lainez would like to do procedure. * Insomnia - Zolpidem 10mg qhs prn.
[2023-11-03] MEDS: metroNIDAZOLE 500 MG Tablet PO (21:43)
[2023-11-03] MEDS: Fluticasone 0.05% 1 SPRAY NASAL.SRY NASAL (21:43)
[2023-11-03] MEDS: Cefdinir 300 MG Capsule PO (21:44)
[2023-11-03] MEDS: Senna/Docusate Sodium 1 Tablet PO (21:45)
[2023-11-03] MEDS: Linezolid 600 MG Tablet PO (21:46)
[2023-11-03] MEDS: Zolpidem Tartrate 5 MG Tablet 10 MG PO (21:54)
[2023-11-04] MEDS: Acetaminophen 500 MG Tablet 1000 MG PO ×4 (00:51→18:07)
[2023-11-04] MEDS: metroNIDAZOLE 500 MG Tablet PO ×3 (05:30→21:05)
[2023-11-04] MEDS: Enoxaparin 40 MG/0.4 ML Syringe SC (05:31)
[2023-11-04 05:56] LABS: Absolute Lymphocyte Count 39.25 X10^3/uL (0.83-4.51); Absolute Neutrophil Count 2.2 X10^3/uL (2.0-7.7); Basophil% 0.2 % (0-1); Eosinophil# 0.01 X10^3/uL; Hematocrit 29.9 % (40-54); Hemoglobin 9.7 g/dL (13.0-16.5); Lymphocyte # 39.25 X10^3/ul (0.83-4.51); Lymphocyte % 85.1 % (19-41); Mean Corp Hgb Conc 32.4 g/dL (32-36); Mean Corpuscular Hgb 44.5 pg (27.0-32.0); Mean Corpuscular Volume 137.2 fL (80-94); Mean Platelet Vol. 9.5 fl (6.2-12.0); Monocyte# 4.36 X10^3/uL; Monocyte% 9.5 % (0-10); NRBC Flagged by Analyzer 0.3 % (0-5); Neutrophil # 2.21 X10^3/uL (2.7-7.7); Neutrophil % 4.8 % (47-70); POSITIVE COUNT YES; POSITIVE DIFFERENTIAL YES; POSITIVE MORPHOLOGY YES; Platelet Count 308 K/mm3 (150-450); RBC Distribution Width CV 18.3 % (11.6-14.6); RBC Distribution Width SD 92.5 fl (35.1-43.9); Red Blood Count 2.18 M/mm3 (4.6-6.2)
--- NOTE | 2023-11-04 06:04 | NURSING ---
Addendum entered by Gregg Worley 11/04/23 06:16: notified of lab value via communication board. Original Note: Lab called with critical lab value, primary nurse, Alfredito notified of results.
[2023-11-04 06:36] LABS: Differential Indicated SCAN CRITERIA MET; White Blood Count 46.1 K/mm3 (4.4-11.0)
[2023-11-04 06:47] LABS: Anion Gap 11 (5-15); BUN 35 mg/dL (7-18); BUN/Creat Ratio 24.5 RATIO (10-20); Calcium,Total 9.7 mg/dL (8.5-10.1); Chloride 107 mmol/L (98-107); Creatinine, Serum 1.43 mg/dL (0.70-1.30); EST Glomerular Filtration Rate 52 mL/min (>60); Est Glom Filt Rate - Afr Amer 63 mL/min (>60); Estimated Creatinine Clearance 49.63 ml/min; Glucose 102 mg/dL (74-106); Potassium 5.1 mmol/L (3.5-5.1); Sodium Level 141 mmol/L (136-145)
[2023-11-04 06:50] LABS: Differential Comment SCANNED
--- NOTE | 2023-11-04 07:42 | PCM.PN.DRR ---
Documented by User: Abebe Quinonez 11/04/23 08:10 TCU RX Drug Regimen Review Subjective/Objective Subjective/Objective: Subjective: TCU admission note. 68 year old male with below past medical history hospitalized for expressive aphasia, dysarthria, stroke ruled out, 2/2 right mastoiditis, complicated by TIA, hypocalcemia, hypomagnesemia, admitted to TCU with debility, here for rehabilitation, strengthening, prior to discharge home alone. Objective: Allergies Penicillins Allergy (Verified 10/29/23 13:11) PT UNSURE OF REACTION Occurred in childhood ~ 8 y.o doxycycline Adverse Reaction (Unknown, Verified 10/29/23 13:11) Upset Stomach Current Medications Generic Name Dose Route Start Last Admin Trade Name Freq PRN Reason Stop Dose Admin Acetaminophen 1,000 mg 11/04/23 00:00 11/04/23 05:30 Acetaminophen 500 Mg Tablet PO 1,000 mg Q6 FELICITY Administration Albuterol Sulfate 1 puff 11/03/23 16:22 Albuterol Ih (6.7 Gm) 1 Puff Inhaler INHALATION Q4H PRN shortness of breath or wheezing Ascorbic Acid 500 mg 11/04/23 10:00 Ascorbic Acid 500 Mg Tablet PO DAILY FELICITY Bisacodyl 10 mg 11/03/23 16:35 Bisacodyl 10 Mg Suppository RC DAILY PRN PRN Constipation Calcitriol 0.25 mcg 11/04/23 10:00 Calcitriol 0.25 Mcg Capsule PO DAILY FELICITY Cefdinir 300 mg 11/03/23 22:00 11/03/23 21:44 Cefdinir 300 Mg Capsule PO 11/13/23 10:01 300 mg Q12 FELICITY Administration Cholecalciferol 50 mcg 11/04/23 10:00 Cholecalciferol (Vit D3) 25 Mcg Tablet (1,000 Units) PO DAILY FELICITY Diltiazem HCl 120 mg 11/04/23 10:00 Diltiazem Cd 120 Mg Capsule PO DAILY [facility] Enoxaparin Sodium 40 mg 11/04/23 06:00 11/04/23 05:31 Enoxaparin 40 Mg/0.4 Ml Syringe SC 11/06/23 06:01 40 mg DAILY@0600 FELICITY Administration Fluticasone Propionate 1 spray 11/03/23 22:00 11/03/23 21:43 Fluticasone 0.05% 1 [place] Nasal.Sry NASAL 1 spray BID FELICITY Administration Hydroxyurea 1,500 mg 11/04/23 10:00 Hydroxyurea 500 Mg Capsule PO DAILY [facility] Linezolid 600 mg 11/03/23 22:00 11/03/23 21:46 Linezolid 600 Mg Tablet PO 11/13/23 10:01 600 mg Q12 FELICITY Administration Magnesium Chloride 128 mg 11/04/23 10:00 Magnesium Chloride 64 Mg Delay Rel.Tablet PO DAILY [facility] Metoprolol Tartrate 150 mg 11/04/23 10:00 Metoprolol Tartrate 50 Mg Tablet PO DAILY [facility] Protocol Metronidazole 500 mg 11/03/23 22:00 11/04/23 05:30 Metronidazole 500 Mg Tablet PO 11/13/23 14:01 500 mg TID [facility] Administration Pantoprazole Sodium 40 mg 11/04/23 10:00 Pantoprazole Sodium 40 Mg Tablet PO DAILY [facility] Rivaroxaban 10 mg 11/03/23 17:00 11/03/23 18:11 Rivaroxaban 10 Mg Tablet PO 10 mg DINNER [facility] Administration Senna/Docusate Sodium 1 tablet 11/03/23 22:00 11/03/23 21:45 Senna/Docusate Sodium 1 Tablet PO 1 tablet BID [facility] Administration Sodium Chloride 10 - 40 ml 11/03/23 16:48 11/03/23 19:59 0.9% Saline Lock 10 Ml Syringe IV 10 ml UD PRN Administration SALINE FLUSH Tuberculin PPD 0.1 ml 11/04/23 10:00 Tuberculin,Purif.Prot.Deriv. 50 Tu/Ml Vial ID 11/04/23 10:01 X1 ONE Tuberculin PPD 0.1 ml 11/11/23 10:00 Tuberculin,Purif.Prot.Deriv. 50 Tu/Ml Vial ID 11/11/23 10:01 X1 ONE Zolpidem Tartrate 10 mg 11/03/23 16:22 11/03/23 21:54 Zolpidem Tartrate 5 Mg Tablet PO 10 mg QHS PRN PRN Administration sleep Problem List Insomnia (Acute) GERD (gastroesophageal reflux disease) (Acute) Essential (primary) hypertension (Acute) Acute mastoiditis of right side (Acute) Hypomagnesemia (Acute) TIA (transient ischemic attack) (Acute) Hypocalcemia (Acute) Expressive aphasia (Acute) Debility (Acute) Pulmonary fibrosis (Acute) Coronary artery disease (Acute) CLL (chronic lymphocytic leukemia) (Chronic) COPD (chronic obstructive pulmonary disease) (Chronic) Vital Signs Temp Pulse Resp BP Pulse Ox O2 Del Method 97.8 F 94 18 147/86 H 98 Room Air 11/03/23 16:14 11/03/23 16:14 11/03/23 16:14 11/03/23 16:14 11/03/23 16:14 11/03/23 16:14 Oxygen Delivery Method Room Air Weight: 87.543 kg Body Mass Index (BMI) 27.6 Sodium 141 mmol/L (136-145) 11/04/23 05:10 Potassium 5.1 mmol/L (3.5-5.1) 11/04/23 05:10 Chloride 107 mmol/L (98-107) 11/04/23 05:10 Carbon Dioxide 23.0 mmol/L (21.0-32.0) 11/04/23 05:10 Anion Gap 11 (5-15) 11/04/23 05:10 BUN 35 mg/dL (7-18) H 11/04/23 05:10 Creatinine 1.43 mg/dL (0.70-1.30) H 11/04/23 05:10 Est GFR (MDRD) Af Amer 63 mL/min (>60) 11/04/23 05:10 Est GFR (MDRD) Non-Af 52 mL/min (>60) L 11/04/23 05:10 BUN/Creatinine Ratio 24.5 RATIO (10-20) H 11/04/23 05:10 Glucose 102 mg/dL (74-106) 11/04/23 05:10 Assessment/Plan: 1. Pain: acetaminophen 1000 mg PO Q6H. Please continue to monitor pain levels, and LFTs (AST/ALT = 14/19 on 10/23/23). 2. Bowel:senna/docusate 1 tablet PO BID, bisacodyl 10 mg RC daily PRN constipation. The patient has not required any PRN doses of bisacodyl and the patient's last bowel movement was documented as 11/03/23. Please continue to monitor for diarrhea, constipation, and PRN medication usage. 3. Right mastoiditis: cefdinir 300 mg PO Q12H through 11/13/23, linezolid 600 mg PO Q12H through 11/13/23, metronidazole 500 mg PO TID through 11/13/23. Please continue to monitor for jaw and facial pain, WBC count (WBC = 46.1 K/mm3 on 11/04/23), for fevers (last temp = 97.8 F on 11/03/23), for chills, renal function (serum creatinine = 1.43 mg/dlL with creatinine clearance ~ 50 mL/min on 11/04/23), for neuropathies, for thrombocytopenia (plt = 308 K/mm3 on 11/04/23), for nausea/vomiting, headache, diarrhea, and dizziness. 4. DVT prophylaxis: enoxaparin 40 mg SC daily through 11/06/23 (rivaroxaban 10 mg PO daily on hold). Please continue to monitor for s/s of a DVT such as pain/erythema and swelling in an extremity, for s/s of bleeding/excessive bruising, hemoglobin levels (Hgb = 9.7 g/dL on 11/04/23), platelet count (Plt = 308 K/mm3 on 11/04/23), and renal function (serum creatinine = 1.43 mg/dL with creatinine clearance ~ 50 mL/min on 11/04/23). 5. Thrombocythemia: hydroxyurea 1500 mg PO daily. Please continue to monitor WBC counts (WBC = 46.1 K/mm3 on 11/04/23), platelet counts (Plt = 308 K/mm3 on 11/04/23), for xeroderma, bacterial infections, headaches, and renal function (serum creatinine = 1.43 mg/dL with creatinine clearance ~ 50 mL/min on 11/04/23). 6. Hypertension: metoprolol tartrate 150 mg PO daily, diltiazem 120 mg PO daily. Please continue to monitor heart rates (recent range = 94-125 bpm), blood pressures (recent range = 127-169/84-97 mmHg), for fatigue and for constipation. The patient's blood pressures have remained high as well as his heart rates over the past several days. Please consider restarting the patient's amlodipine 5 mg PO daily to help with blood pressure control. 7. COPD: albuterol 1 puff Q4H PRN shortness of breath/wheezing. The patient has not required any PRN doses of albuterol so far this admission. Please continue to monitor for shortness of breath, for cough, increased sputum production and for PRN medication usage. 8. Hyperparathyroidism: calcitriol 0.25 mcg PO daily. Please continue to monitor vitamin D levels (vitamin D = 44.0 ng/mL on 09/10/23), calcium levels (Ca = 9.7 mg/dL on 11/04/23), and phosphorus levels (Phos = 4.9 mg/dL on 10/30/23). 9. GERD: pantoprazole 40 mg PO daily. Please continue to monitor for s/s of GERD, for diarrhea that could indicate clostridium difficile infection, magnesium levels (Mg = 2.0 mg/dL on 10/31/23), and for s/s of bone resorption such as fractures. 10. Insomnia: zolpidem 10 mg PO QHS PRN insomnia. The patient has received 1 dose of PRN zolpidem so far this admission. Please continue to monitor for PRN medication usage, for insomnia, and for oversedation. 11. Allergic rhinitis: fluticasone 0.05% nasal spray 1 spray in each nostril BID. Please continue to monitor for s/s of allergies, for headaches and for nose bleeds. 12. Vitamin C/Vitamin D deficiency: ascorbic acid 500 mg PO daily, vitamin D 50 mcg PO daily. Please continue to monitor vitamin D levels (vitamin D = 44.0 ng/mL on 09/10/23), and for s/s of vitamin C/Vitamin D deficiency. 13. Hypomagnesemia: magnesium chloride 128 mg PO daily. Please continue to monitor magnesium levels (Mg = 2.0 mg/dL on 10/31/23) and for diarrhea. Assessment/Plan for indications treated with psychotropic medications: NA Medical chart and medication regimen reviewed. The following medication irregularities or issues were identified: 1. Hypertension: metoprolol tartrate 150 mg PO daily, diltiazem 120 mg PO daily. The patient's blood pressures have remained high as well as his heart rates over the past several days. Please consider restarting the patient's amlodipine 5 mg PO daily to help with blood pressure control. Date Date of Note:: 11/04/23 Documented by User: Dr. Leighton Orozco MD 11/04/23 08:18 TCU RX Drug Regimen Review Provider Comments Provider responsibility Provider Comments to Recommendations by Pharmacy: Agree
[2023-11-04 09:30] VITALS: BMI 27.6
[2023-11-04 10:00] VITALS: BP 148/90; PULSE 117
[2023-11-04] MEDS: Fluticasone 0.05% 1 SPRAY NASAL.SRY NASAL ×2 (10:01→21:03)
[2023-11-04] MEDS: Cholecalciferol (VIT D3) 25 MCG TABLET (1,000 UNITS) 50 MCG PO (10:02)
[2023-11-04] MEDS: Ascorbic Acid 500 MG Tablet PO (10:02)
[2023-11-04] MEDS: Senna/Docusate Sodium 1 Tablet PO ×2 (10:03→21:04)
[2023-11-04] MEDS: Magnesium Chloride 64 MG Delay Rel.Tablet 128 MG PO (10:03)
[2023-11-04] MEDS: Calcitriol 0.25 MCG Capsule PO (10:03)
[2023-11-04] MEDS: Hydroxyurea 500 MG Capsule 1500 MG PO (10:03)
[2023-11-04] MEDS: Linezolid 600 MG Tablet PO ×2 (10:03→21:06)
[2023-11-04] MEDS: Pantoprazole Sodium 40 MG Tablet PO (10:04)
[2023-11-04] MEDS: Cefdinir 300 MG Capsule PO ×2 (10:04→21:04)
[2023-11-04] MEDS: dilTIAZem CD 180 MG Capsule PO (10:04)
[2023-11-04] MEDS: Tuberculin,Purif.prot.deriv. 50 TU/ML Vial 0.1 ML ID (10:06)
[2023-11-04 10:09] VITALS: BP 148/90; PULSE 117
[2023-11-04] MEDS: Metoprolol Tartrate 50 MG Tablet 150 MG PO (10:09)
[2023-11-04 11:51] LABS: Pathologist Review Reviewed
[2023-11-04 14:23] VITALS: BP 151/86; PULSE 68; RESP 14; TEMP 36.3; O2SAT 98
[2023-11-04] MEDS: 0.9% Saline Lock 10 ML Syringe IV (20:59)
[2023-11-04 21:00] VITALS: PULSE 88; O2SAT 96
[2023-11-04] MEDS: Zolpidem Tartrate 5 MG Tablet 10 MG PO (21:02)
[2023-11-05] MEDS: Acetaminophen 500 MG Tablet 1000 MG PO ×4 (00:01→18:07)
[2023-11-05] MEDS: metroNIDAZOLE 500 MG Tablet PO ×3 (05:27→21:02)
[2023-11-05] MEDS: Enoxaparin 40 MG/0.4 ML Syringe SC (05:29)
[2023-11-05] MEDS: Fluticasone 0.05% 1 SPRAY NASAL.SRY NASAL ×2 (09:15→21:03)
[2023-11-05 09:17] VITALS: BP 135/78; PULSE 86
[2023-11-05] MEDS: Hydroxyurea 500 MG Capsule 1500 MG PO (09:17)
[2023-11-05] MEDS: Metoprolol Tartrate 50 MG Tablet 150 MG PO (09:17)
[2023-11-05] MEDS: dilTIAZem CD 180 MG Capsule PO (09:17)
[2023-11-05] MEDS: Magnesium Chloride 64 MG Delay Rel.Tablet 128 MG PO (09:18)
[2023-11-05] MEDS: Cefdinir 300 MG Capsule PO ×2 (09:19→21:03)
[2023-11-05] MEDS: Ascorbic Acid 500 MG Tablet PO (09:19)
[2023-11-05] MEDS: Pantoprazole Sodium 40 MG Tablet PO (09:19)
[2023-11-05] MEDS: Calcitriol 0.25 MCG Capsule PO (09:19)
[2023-11-05] MEDS: Cholecalciferol (VIT D3) 25 MCG TABLET (1,000 UNITS) 50 MCG PO (09:19)
[2023-11-05] MEDS: Linezolid 600 MG Tablet PO ×2 (09:20→21:03)
[2023-11-05 09:38] VITALS: BP 135/78; PULSE 86
[2023-11-05] MEDS: 0.9% Saline Lock 10 ML Syringe IV (09:39)
[2023-11-05 10:00] VITALS: PULSE 97; RESP 18; O2SAT 97
--- NOTE | 2023-11-05 12:04 | NURSING ---
Rn Access Note; Activity Asset: Complete
--- NOTE | 2023-11-05 12:32 | NURSING ---
PT LEFT BY WHEEL CHAIR TO APPOINTMENT AT VASCULAR AT 1230.
--- NOTE | 2023-11-05 14:05 | NEURO_ITS ---
NCS and/or EMG Patient Report Ordering Doctor: Monisha Edmonds DATE OF SERVICE: 11/05/23 Clinical Summary: 68 year old male patient with symptoms of This EMG/NCS was performed to evaluate for Nerve Conduction Studies Summary: Nerve conduction studies were normal. Needle Examination Summary: Needle examination was normal. There was a higher proportion of motor unit action potentials with reduced recruitment, increased amplitude, increased duration, and polyphasia in the Impression: There is electrodiagnostic evidence of the following -
--- NOTE | 2023-11-05 14:05 | NEURO ---
NCS and/or EMG Patient Report Ordering Doctor: Monisha Edmonds DATE OF SERVICE: 11/05/23 Clinical Summary: 68 year old male patient with symptoms of numbness and tingling in from the ankles to the toes in both lower extremities. He is on anticogulation. Nerve Conduction Studies Summary: The sural distal latencies were prolonged bilaterally. The peroneal and tibial motor conduction velocities were reduced bilaterally. The bilateral tibial and peroneal F-wave onset latencies were prolonged. Needle Examination Summary: Needle examination of select muscles in the bilateral lower extremities demonstrated a higher proportion of motor unit action potentials with reduced recruitment, increased amplitude, increased duration, and polyphasia in the bilateral tibialis anterior and peroneus longus muscles. Impression: There is electrodiagnostic evidence of the following - 1) Predominantly axonal, length-dependent, peripheral polyneuropathy Multi Select Codes Neurology Neurology Interp Codes: 31502-72 Musc test done w/n test comp (interp) (2) and 24034-01 Nrv cndj test 7-8 studies (interp)
--- NOTE | 2023-11-05 14:11 | NURSING ---
PT RETURNED FROM VASCULAR BY WHEEL CHAIR AT 1405. SEE REPORT
[2023-11-05 16:00] VITALS: BP 127/69; PULSE 75; RESP 16; TEMP 36.3; O2SAT 97
--- NOTE | 2023-11-05 16:37 | CASEMGMT ---
Social Work SW met with patient to complete initial assessment. Pt known to this worker from previous stay. Verified contacts. Confirmed code status as full code. Requested dtr provide copies of pt's advanced directives. Educated to Medicare benefit and copay coverage. Pt's goal is to return home alone. SW discussed having improved medication management at home as dtr lives 40 minutes away. Pt agreed and stated he would call [facility] to see if they can prepackage his meds for him. SW agreed. Pt did note he and his dtr have discussed pt moving closer to dtr for her to assist more often. SW will continue to follow for support and DC planning. Janie Robb, ZHANG UPTONW
[2023-11-05] MEDS: Zolpidem Tartrate 5 MG Tablet 10 MG PO (21:11)
[2023-11-06] MEDS: Acetaminophen 500 MG Tablet 1000 MG PO ×4 (00:54→18:38)
[2023-11-06] MEDS: metroNIDAZOLE 500 MG Tablet PO ×3 (06:23→20:48)
[2023-11-06] MEDS: Enoxaparin 40 MG/0.4 ML Syringe SC (06:23)
[2023-11-06] MEDS: Fluticasone 0.05% 1 SPRAY NASAL.SRY NASAL ×2 (09:39→20:48)
[2023-11-06 09:40] VITALS: BP 129/86; PULSE 104
[2023-11-06] MEDS: Metoprolol Tartrate 50 MG Tablet 150 MG PO (09:40)
[2023-11-06] MEDS: Ascorbic Acid 500 MG Tablet PO (09:40)
[2023-11-06] MEDS: Magnesium Chloride 64 MG Delay Rel.Tablet 128 MG PO (09:40)
[2023-11-06] MEDS: Hydroxyurea 500 MG Capsule 1500 MG PO (09:42)
[2023-11-06] MEDS: Cholecalciferol (VIT D3) 25 MCG TABLET (1,000 UNITS) 50 MCG PO (09:43)
[2023-11-06] MEDS: dilTIAZem CD 180 MG Capsule PO (09:43)
[2023-11-06] MEDS: Cefdinir 300 MG Capsule PO ×2 (09:43→20:48)
[2023-11-06] MEDS: Pantoprazole Sodium 40 MG Tablet PO (09:43)
[2023-11-06] MEDS: Calcitriol 0.25 MCG Capsule PO (09:44)
[2023-11-06] MEDS: Linezolid 600 MG Tablet PO ×2 (09:44→20:49)
[2023-11-06 11:54] VITALS: PULSE 87; RESP 18; O2SAT 95
[2023-11-06 15:56] VITALS: BP 142/74; PULSE 77; RESP 12; TEMP 35.9; O2SAT 99
[2023-11-06] MEDS: Zolpidem Tartrate 5 MG Tablet 10 MG PO (20:54)
--- NOTE | 2023-11-06 22:20 | NURSING ---
Patient voiced c/o double vision this AM, states put glasses on and no c/o since, patient concerned due to sign of s/p stroke, Dr. Orozco updated via communication board.
[2023-11-07] MEDS: metroNIDAZOLE 500 MG Tablet PO ×3 (05:46→21:23)
[2023-11-07] MEDS: Acetaminophen 500 MG Tablet 1000 MG PO ×3 (05:46→17:21)
[2023-11-07 06:18] VITALS: PULSE 94; O2SAT 98
[2023-11-07] MEDS: Cefdinir 300 MG Capsule PO ×2 (09:37→21:24)
[2023-11-07] MEDS: Magnesium Chloride 64 MG Delay Rel.Tablet 128 MG PO (09:37)
[2023-11-07] MEDS: dilTIAZem CD 180 MG Capsule PO (09:38)
[2023-11-07] MEDS: Linezolid 600 MG Tablet PO ×2 (09:39→21:20)
[2023-11-07] MEDS: Calcitriol 0.25 MCG Capsule PO (09:39)
[2023-11-07] MEDS: Cholecalciferol (VIT D3) 25 MCG TABLET (1,000 UNITS) 50 MCG PO (09:39)
[2023-11-07] MEDS: Ascorbic Acid 500 MG Tablet PO (09:40)
[2023-11-07] MEDS: Fluticasone 0.05% 1 SPRAY NASAL.SRY NASAL ×2 (09:41→21:25)
[2023-11-07 09:44] VITALS: BP 130/67; PULSE 107
[2023-11-07] MEDS: Metoprolol Tartrate 50 MG Tablet 150 MG PO (09:44)
[2023-11-07] MEDS: Pantoprazole Sodium 40 MG Tablet PO (09:44)
--- NOTE | 2023-11-07 09:56 | NURSING ---
Addendum entered by Tiffani West 11/07/23 11:29: pt back to room Original Note: off floor for MRI of head for c/o db vision
[2023-11-07 15:18] VITALS: BP 145/80; PULSE 78; RESP 16; TEMP 36.5; O2SAT 99
--- NOTE | 2023-11-07 15:49 | CHAPLAIN ---
Type of Pastoral Visit ___ Initial Visit ___ Follow-up Visit ___ On-call Visit ___ General Patient Visit ___ Spiritual Assessment ___ Family Conference ___ Bereavement ___ Rapid Response ___ Code Blue ___ Other (describe below) Pastoral Care Referral From ___ Patient ___ Family ___ Nurse ___ Physician ___ Raw Scales Operator ___ Insurance Counselor ___ Other (describe below) Sacrament/Intervention ___ Active listening ___ Anointing ___ Alevism ___ Bereavement ___ Communion ___ Ashlyn exploration ___ ___ Life review ___ Prayer ___ Reconciliation ___ Sacrament of Sick ___ Supportive presence ___ Wedding ___ Other (describe below) Pastoral Comments patient was not in the room at time of attempted visit; left a calling card
[2023-11-07] MEDS: Rivaroxaban 10 MG Tablet PO (17:21)
[2023-11-07] MEDS: Hydroxyurea 500 MG Capsule 1500 MG PO (21:22)
[2023-11-08] MEDS: Zolpidem Tartrate 5 MG Tablet 10 MG PO ×2 (00:32→21:03)
[2023-11-08] MEDS: Acetaminophen 500 MG Tablet 1000 MG PO ×4 (00:32→18:16)
[2023-11-08] MEDS: metroNIDAZOLE 500 MG Tablet PO ×3 (06:30→21:05)
[2023-11-08] MEDS: Fluticasone 0.05% 1 SPRAY NASAL.SRY NASAL ×2 (09:28→21:05)
[2023-11-08] MEDS: Albuterol IH (6.7 GM) 1 PUFF INHALER INHALATION (09:30)
[2023-11-08 09:31] VITALS: BP 122/83; PULSE 119
[2023-11-08] MEDS: Metoprolol Tartrate 50 MG Tablet 150 MG PO (09:31)
[2023-11-08] MEDS: Pantoprazole Sodium 40 MG Tablet PO (09:32)
[2023-11-08] MEDS: Cholecalciferol (VIT D3) 25 MCG TABLET (1,000 UNITS) 50 MCG PO (09:32)
[2023-11-08] MEDS: Cefdinir 300 MG Capsule PO ×2 (09:32→21:05)
[2023-11-08] MEDS: Linezolid 600 MG Tablet PO ×2 (09:32→21:04)
[2023-11-08] MEDS: Magnesium Chloride 64 MG Delay Rel.Tablet 128 MG PO (09:32)
[2023-11-08] MEDS: Ascorbic Acid 500 MG Tablet PO (09:33)
[2023-11-08] MEDS: dilTIAZem CD 180 MG Capsule PO (09:33)
[2023-11-08] MEDS: Calcitriol 0.25 MCG Capsule PO (09:33)
[2023-11-08 09:40] VITALS: BP 122/83; PULSE 119
[2023-11-08 14:00] VITALS: PULSE 119; RESP 18; O2SAT 97
[2023-11-08 15:51] VITALS: BP 148/82; PULSE 82; RESP 20; TEMP 36.9; O2SAT 99
[2023-11-08] MEDS: Rivaroxaban 10 MG Tablet PO (18:16)
[2023-11-08] MEDS: Hydroxyurea 500 MG Capsule 1500 MG PO (21:05)
[2023-11-09] MEDS: Acetaminophen 500 MG Tablet 1000 MG PO ×4 (00:32→18:15)
[2023-11-09] MEDS: metroNIDAZOLE 500 MG Tablet PO ×3 (06:28→22:06)
[2023-11-09] MEDS: Fluticasone 0.05% 1 SPRAY NASAL.SRY NASAL ×2 (09:58→22:04)
[2023-11-09 09:59] VITALS: BP 160/83; PULSE 114
[2023-11-09] MEDS: Metoprolol Tartrate 50 MG Tablet 150 MG PO (09:59)
[2023-11-09] MEDS: Magnesium Chloride 64 MG Delay Rel.Tablet 128 MG PO (09:59)
[2023-11-09] MEDS: Cholecalciferol (VIT D3) 25 MCG TABLET (1,000 UNITS) 50 MCG PO (09:59)
[2023-11-09] MEDS: Linezolid 600 MG Tablet PO ×2 (10:03→22:06)
[2023-11-09] MEDS: Calcitriol 0.25 MCG Capsule PO (10:03)
[2023-11-09] MEDS: dilTIAZem CD 180 MG Capsule PO (10:03)
[2023-11-09] MEDS: Ascorbic Acid 500 MG Tablet PO (10:03)
[2023-11-09] MEDS: Cefdinir 300 MG Capsule PO ×2 (10:03→22:04)
[2023-11-09] MEDS: Pantoprazole Sodium 40 MG Tablet PO (10:03)
[2023-11-09 10:13] VITALS: BP 160/83; PULSE 114; O2SAT 98
[2023-11-09 14:15] VITALS: PULSE 114; RESP 18; O2SAT 98
[2023-11-09 16:00] VITALS: BP 141/81; PULSE 86; RESP 16; TEMP 36.4; O2SAT 97
[2023-11-09] MEDS: Rivaroxaban 10 MG Tablet PO (18:16)
[2023-11-09] MEDS: Zolpidem Tartrate 5 MG Tablet 10 MG PO (22:02)
[2023-11-09] MEDS: Hydroxyurea 500 MG Capsule 1500 MG PO (22:03)
[2023-11-09] MEDS: Senna/Docusate Sodium 1 Tablet PO (22:06)
[2023-11-10] MEDS: metroNIDAZOLE 500 MG Tablet PO ×3 (05:21→22:34)
[2023-11-10] MEDS: Acetaminophen 500 MG Tablet 1000 MG PO ×3 (05:21→17:02)
[2023-11-10 07:29] VITALS: PULSE 110
--- NOTE | 2023-11-10 08:39 | NURSING ---
Biology Intern Note; MDS for 11/10/2023 Complete
[2023-11-10 09:08] VITALS: BP 171/88; PULSE 100
[2023-11-10 09:10] VITALS: PULSE 100
[2023-11-10] MEDS: Acyclovir 200 MG Capsule 400 MG PO ×4 (09:10→22:35)
[2023-11-10] MEDS: Metoprolol Tartrate 50 MG Tablet 150 MG PO (09:10)
[2023-11-10] MEDS: Fluticasone 0.05% 1 SPRAY NASAL.SRY NASAL ×2 (09:11→22:34)
[2023-11-10] MEDS: Cefdinir 300 MG Capsule PO ×2 (09:11→22:35)
[2023-11-10] MEDS: Magnesium Chloride 64 MG Delay Rel.Tablet 128 MG PO (09:11)
[2023-11-10] MEDS: Calcitriol 0.25 MCG Capsule PO (09:12)
[2023-11-10] MEDS: Cholecalciferol (VIT D3) 25 MCG TABLET (1,000 UNITS) 50 MCG PO (09:12)
[2023-11-10] MEDS: Ascorbic Acid 500 MG Tablet PO (09:12)
[2023-11-10] MEDS: Pantoprazole Sodium 40 MG Tablet PO (09:12)
[2023-11-10] MEDS: Senna/Docusate Sodium 1 Tablet PO (09:12)
[2023-11-10] MEDS: Linezolid 600 MG Tablet PO ×2 (09:13→22:35)
[2023-11-10] MEDS: dilTIAZem CD 180 MG Capsule PO (09:13)
[2023-11-10 11:38] VITALS: BP 149/87; PULSE 82
--- NOTE | 2023-11-10 12:22 | NURSING ---
NOTIFIED R' THAT THERE IS NOT A SUBSTITUTE FOR LEXAPRO D/T THE INTERACTION WITH ZYVOX.
[2023-11-10 13:34] VITALS: BP 136/71; PULSE 86; RESP 20; TEMP 35.7; O2SAT 97
--- NOTE | 2023-11-10 14:57 | CASEMGMT ---
Social Work BIMS () and PHQ-2 () completed for MDS assessment. Pt did share today is the anniversary of his 's , but he was able to speak with Patient Flow Coordinator Bryon for while today. SW shared condolences and offered additional emotional support. Pt appreciative. Pt continues to mention how thankful he and his dtr were this worker assisted both in the ED during his stroke alert; repeating how shocked he was to see it was this worker, but was happy. SW appreciative. Janie Robb, RATER ASSOCIATE FELT COVERER
--- NOTE | 2023-11-10 15:39 | CHAPLAIN ---
Type of Pastoral Visit ___ Initial Visit _x__ Follow-up Visit ___ On-call Visit ___ General Patient Visit ___ Spiritual Assessment ___ Family Conference ___ Bereavement ___ Rapid Response ___ Code Blue ___ Other (describe below) Pastoral Care Referral From _x__ Patient ___ Family ___ Nurse ___ Physician ___ Rn Recruitment ___ Splicer Helper ___ Other (describe below) Sacrament/Intervention _x__ Active listening ___ Anointing ___ Anabaptist _x__ Bereavement ___ Communion _x__ Ashlyn exploration ___ _x__ Life review _x__ Prayer ___ Reconciliation ___ Sacrament of Sick _x__ Supportive presence ___ Wedding ___ Other (describe below) Pastoral Comments follow up visit to patient who was seen in PCU and in a previous admission; pt has asked for visits; today as this paint booth operator made this visit the patient acknowledges that 'today is the anniversary of my 's and I'm not doing so good'; explored with the patient his feelings and how he is thinking about his ; acknowledged that these moments were to be expected and normal; affirmed pt as he spoke about his care for his in illness and how he was strengthened by her courage and strength; pt also speaks of several friends who have in recently months and that life is short; pt is tearful at times during the conversation; lots of time to listen, to help process, and to pray
[2023-11-10] MEDS: Rivaroxaban 10 MG Tablet PO (17:02)
[2023-11-10] MEDS: Hydroxyurea 500 MG Capsule 1500 MG PO (22:34)
[2023-11-10] MEDS: Zolpidem Tartrate 5 MG Tablet 10 MG PO (22:35)
[2023-11-11 05:46] LABS: Absolute Lymphocyte Count 42.21 X10^3/uL (0.83-4.51); Absolute Neutrophil Count 1.8 X10^3/uL (2.0-7.7); Basophil# 0.08 X10^3/uL; Basophil% 0.2 % (0-1); Eosinophil# 0.01 X10^3/uL; Hematocrit 29.6 % (40-54); Hemoglobin 9.7 g/dL (13.0-16.5); Lymphocyte # 42.21 X10^3/ul (0.83-4.51); Lymphocyte % 84.5 % (19-41); Mean Corp Hgb Conc 32.8 g/dL (32-36); Mean Corpuscular Hgb 45.8 pg (27.0-32.0); Mean Corpuscular Volume 139.6 fL (80-94); Monocyte# 5.81 X10^3/uL; Monocyte% 11.6 % (0-10); NRBC Flagged by Analyzer 0.1 % (0-5); Neutrophil # 1.75 X10^3/uL (2.7-7.7); Neutrophil % 3.5 % (47-70); POSITIVE COUNT YES; POSITIVE DIFFERENTIAL YES; POSITIVE MORPHOLOGY YES; Platelet Count 220 K/mm3 (150-450); RBC Distribution Width CV 16.5 % (11.6-14.6); RBC Distribution Width SD 84.8 fl (35.1-43.9); Red Blood Count 2.12 M/mm3 (4.6-6.2)
[2023-11-11 06:07] LABS: Differential Indicated SCAN CRITERIA MET
[2023-11-11] MEDS: Acetaminophen 500 MG Tablet 1000 MG PO ×4 (06:08→23:04)
[2023-11-11] MEDS: Acyclovir 200 MG Capsule 400 MG PO ×5 (06:09→20:41)
[2023-11-11] MEDS: metroNIDAZOLE 500 MG Tablet PO ×3 (06:09→20:44)
[2023-11-11 06:33] LABS: Anion Gap 11 (5-15); BUN 50 mg/dL (7-18); BUN/Creat Ratio 27.8 RATIO (10-20); Calcium,Total 9.8 mg/dL (8.5-10.1); Chloride 109 mmol/L (98-107); EST Glomerular Filtration Rate 40 mL/min (>60); Est Glom Filt Rate - Afr Amer 48 mL/min (>60); Estimated Creatinine Clearance 39.43 ml/min; Glucose 110 mg/dL (74-106); Potassium 5.2 mmol/L (3.5-5.1); Sodium Level 140 mmol/L (136-145)
[2023-11-11 07:37] LABS: Anisocytosis 2+; Differential Comment SCANNED
[2023-11-11] MEDS: Sodium Polystyrene Sulfonate 15 GM/60 ML UDC 30 GM PO (08:20)
[2023-11-11] MEDS: Tuberculin,Purif.prot.deriv. 50 TU/ML Vial 0.1 ML ID (08:22)
[2023-11-11 08:27] VITALS: BP 143/89; PULSE 82; RESP 18; O2SAT 97
[2023-11-11] MEDS: Fluticasone 0.05% 1 SPRAY NASAL.SRY NASAL ×2 (11:43→20:43)
[2023-11-11 11:44] VITALS: PULSE 82
[2023-11-11] MEDS: Cholecalciferol (VIT D3) 25 MCG TABLET (1,000 UNITS) 50 MCG PO (11:44)
[2023-11-11] MEDS: Metoprolol Tartrate 50 MG Tablet 150 MG PO (11:44)
[2023-11-11] MEDS: Calcitriol 0.25 MCG Capsule PO (11:45)
[2023-11-11] MEDS: Magnesium Chloride 64 MG Delay Rel.Tablet 128 MG PO (11:45)
[2023-11-11] MEDS: dilTIAZem CD 180 MG Capsule PO (11:45)
[2023-11-11] MEDS: Cefdinir 300 MG Capsule PO ×2 (11:45→20:40)
[2023-11-11] MEDS: Linezolid 600 MG Tablet PO ×2 (11:45→20:42)
[2023-11-11] MEDS: Pantoprazole Sodium 40 MG Tablet PO (11:45)
[2023-11-11] MEDS: Ascorbic Acid 500 MG Tablet PO (11:45)
[2023-11-11 15:39] VITALS: BMI 26.0
[2023-11-11 16:00] VITALS: TEMP 36.4
--- NOTE | 2023-11-11 17:13 | NURSING ---
Dr. Orozco entered new order for Kayexalate this AM due to potassium level 5.2; senna discontinued per pt request. Pt in irritable mood today, mood improves with 1-on-1 time, active listening. No further complaints at this time.
[2023-11-11] MEDS: Rivaroxaban 10 MG Tablet PO (17:29)
[2023-11-11] MEDS: Hydroxyurea 500 MG Capsule 1500 MG PO (20:49)
[2023-11-11] MEDS: Zolpidem Tartrate 5 MG Tablet 10 MG PO (20:56)
[2023-11-11 21:00] VITALS: PULSE 99; O2SAT 96
[2023-11-12] MEDS: Acetaminophen 500 MG Tablet 1000 MG PO ×4 (05:26→23:01)
[2023-11-12] MEDS: metroNIDAZOLE 500 MG Tablet PO ×3 (05:26→21:07)
[2023-11-12] MEDS: Acyclovir 200 MG Capsule 400 MG PO ×5 (05:27→21:06)
[2023-11-12 05:44] VITALS: PULSE 108; O2SAT 98
[2023-11-12 06:04] LABS: Anion Gap 8 (5-15); BUN 57 mg/dL (7-18); BUN/Creat Ratio 25.9 RATIO (10-20); Calcium,Total 8.9 mg/dL (8.5-10.1); Chloride 110 mmol/L (98-107); EST Glomerular Filtration Rate 32 mL/min (>60); Est Glom Filt Rate - Afr Amer 38 mL/min (>60); Estimated Creatinine Clearance 32.26 ml/min; Glucose 104 mg/dL (74-106); Potassium 4.3 mmol/L (3.5-5.1); Sodium Level 139 mmol/L (136-145)
[2023-11-12] MEDS: dilTIAZem CD 180 MG Capsule PO (08:09)
[2023-11-12] MEDS: Ascorbic Acid 500 MG Tablet PO (08:10)
[2023-11-12] MEDS: Cholecalciferol (VIT D3) 25 MCG TABLET (1,000 UNITS) 50 MCG PO (08:10)
[2023-11-12] MEDS: Pantoprazole Sodium 40 MG Tablet PO (08:10)
[2023-11-12] MEDS: Linezolid 600 MG Tablet PO ×2 (08:10→21:06)
[2023-11-12] MEDS: Magnesium Chloride 64 MG Delay Rel.Tablet 128 MG PO (08:10)
[2023-11-12] MEDS: Calcitriol 0.25 MCG Capsule PO (08:10)
[2023-11-12] MEDS: Cefdinir 300 MG Capsule PO ×2 (08:10→21:07)
[2023-11-12 08:11] VITALS: PULSE 114
[2023-11-12] MEDS: Metoprolol Tartrate 50 MG Tablet 150 MG PO (08:11)
[2023-11-12] MEDS: Fluticasone 0.05% 1 SPRAY NASAL.SRY NASAL ×2 (08:11→21:01)
--- NOTE | 2023-11-12 09:32 | NURSING ---
Pt. and family notified on new positive covid case on the unit.
--- NOTE | 2023-11-12 10:04 | CASEMGMT ---
Social Work IDT met with patient and dtr for care plan meeting. Discussed patient's progress in PT/OT/SN. Educated to Medicare benefit. Pt has returned to PLOF/mod I. IDT set DC date for 11/14. Offered skilled HHC vs OP therapy. SW also provided cleaning resources, per hand off from Yara Marquez's SW visit. Pt/dtr also inquired about meal resources. SW provided MOW and educated to [facility] MOW. Pt/dtr are both agreeable to [place] home 11/14. Pt requesting to continue with outpatient therapy at [facility] for PT, and a rollator. SW to coordinate. Educated to $60/copay for rollator. Pt agreeable to pay. Dtr to transport at [place]. Plan: DC home alone 11/14, [facility] PT, rollator Janie Robb, LANDSCAPING AND GROUNDSKEEPING LABORER AD TAKER
[2023-11-12] MEDS: Petrolatum 33% Tube 1 APPLIC TOPICAL ×2 (10:32→21:04)
[2023-11-12] MEDS: Menthol/Lanolin/Calamine/Znox 113 GM Tube 1 APPLIC TOPICAL ×2 (10:33→21:04)
[2023-11-12 11:01] VITALS: BP 135/92; PULSE 114; RESP 16; TEMP 36.6; O2SAT 99
[2023-11-12 13:41] LABS: Pathologist Review Reviewed
--- NOTE | 2023-11-12 14:14 | NURSING ---
Entering pt. room this nurse noted blood on the floor. When this nurse asked pt. where the blood came from pt. stated his foot. This nurse assessed foot and it appeared to be dry skin that had cracked open and bleed. This nurse asked pt. if it was ok for this nurse to put a dressing on it, pt. refused. Following up with pt. this nurse once again asked to place a dressing on R foot, pt. stated his daughter placed a band-aid on it and didn't want anything else.
[2023-11-12] MEDS: Rivaroxaban 10 MG Tablet PO (17:35)
--- NOTE | 2023-11-12 20:47 | DS.PCM_ITS ---
Providers Date of Admission: 11/03/23 Primary Care Physician: Dr. Leighton Orozco MD Reason For Visit: TIA Diagnosis Discharge Diagnosis (1) Debility: Status: Acute Code(s): R53.81 - Other malaise (2) Expressive aphasia: Status: Acute Code(s): R47.01 - Aphasia (3) TIA (transient ischemic attack): Status: Acute Code(s): G45.9 - Transient cerebral ischemic attack, unspecified (4) Hypocalcemia: Status: Acute Code(s): E83.51 - Hypocalcemia (5) Hypomagnesemia: Status: Acute Code(s): E83.42 - Hypomagnesemia (6) Acute mastoiditis of right side: Status: Acute Code(s): H70.001 - Acute mastoiditis without complications, right ear (7) COPD (chronic obstructive pulmonary disease): Status: Chronic Code(s): J44.9 - Chronic obstructive pulmonary disease, unspecified (8) Pulmonary fibrosis: Status: Acute Code(s): J84.10 - Pulmonary fibrosis, unspecified (9) Essential (primary) hypertension: Status: Acute Code(s): I10 - Essential (primary) hypertension (10) Coronary artery disease: Status: Acute Code(s): I25.10 - Atherosclerotic heart disease of [place] coronary artery without angina pectoris (11) CLL (chronic lymphocytic leukemia): Status: Chronic Code(s): C91.10 - Chronic lymphocytic leukemia of B-cell type not having achieved remission (12) GERD (gastroesophageal reflux disease): Status: Acute Code(s): K21.9 - Gastro-esophageal reflux disease without esophagitis (13) Insomnia: Status: Acute Code(s): G47.00 - Insomnia, unspecified Plan 68 year old male with below past medical history hospitalized for expressive aphasia, dysarthria, stroke ruled out, 2/2 right mastoiditis, complicated by TIA, hypocalcemia, hypomagnesemia, admitted to TCU with debility, here for rehabilitation, strengthening, prior to discharge home alone. * Debility - PT/OT. * Pain - Tylenol 1000mg q6. * Bowel - Senna/colace 1 tablet bid, Dulcolax 10mg pr daily prn. * Adult immunization - Administer pneumonia vaccine, covid vaccine, flu vaccine as appropriate. * DVT prophylaxis - Lovenox 40mg sc daily. * COPD - Albuterol 1 puf q4h prn. * Vitamin C deficiency - Vitamin C 500mg daily. * Hyperparathyroidism - Calcitriol 0.25mcg daily. * Right mastoiditis - Cefdinir 300mg q12 thru 11/13/2023, Linezolid 600mg q12 thru 11/13/2023, Flagyl 500mg tid thru 11/13/2023, Dr. Lainez appointment 11/06/2023. * Vitamin D deficiency - D3 50mcg daily. * Hypertension - Metoprolol 150mg daily, Diltiazem 120mg daily. * Allergic rhinitis - Fluticasone 1 spray nasal bid. * Thrombocythemia - Hydrea 1500mg daily. * Hypomagnesemia - Magnesium chloride 128mg daily. * GERD - Pantoprazole 40mg daily. * DVT/PE s/p IVC filter - Hold Xarelto 10mg daily, use Lovenox in case Dr. Lainez would like to do procedure. * Insomnia - Zolpidem 10mg qhs prn. Medications at Discharge Home Medications albuterol sulfate 90 mcg/actuation aerosol inhaler 1 inh inhalation Q4H PRN shortness of breath or wheezing 12/26/22 omeprazole 40 mg capsule,delayed release 40 mg PO DAILY GERD 12/26/22 zolpidem 5 mg tablet 10 mg PO QHS PRN PRN sleep 12/26/22 escitalopram oxalate 5 mg tablet (Lexapro) 5 mg PO DAILY Mood 01/30/23 ascorbic acid (vitamin C) 500 mg tablet 500 mg PO DAILY Supplement 02/06/23 magnesium oxide 400 mg PO DAILY GERD 02/06/23 evolocumab 140 mg/mL subcutaneous pen injector (Repatha SureClick) 140 mg subcut QMONTH [facility] 08/19/23 hydroxyurea 500 mg capsule 1,500 mg PO DAILY Chemo 10/07/23 metoprolol tartrate 100 mg tablet 150 mg PO DAILY BP 10/07/23 rivaroxaban 20 mg tablet (Xarelto) 10 mg PO DAILY Blood Thinner 10/07/23 calcitriol 0.25 mcg capsule 0.25 mcg PO DAILY Supplement 10/23/23 ergocalciferol (vitamin D2) 1,000 unit capsule 50 mcg PO DAILY Supplement 10/29/23 fluticasone propionate 50 mcg/actuation nasal spray,suspension 1 spray intranasal BID Allergies 10/29/23 acetaminophen 500 mg tablet 1,000 mg (2 x 500 mg) PO Q6 #0 tabs 11/12/23 diltiazem HCl 180 mg capsule,extended release 24 hr 180 mg PO DAILY 30 days #30 caps 11/12/23 Hospital Course Operations None Procedures None Summary of Care Provided Minutes Spent on Discharge: 35 Hospital Course: 68 year old male with below past medical history hospitalized for expressive aphasia, dysarthria, stroke ruled out, 2/2 right mastoiditis, complicated by TIA, hypocalcemia, hypomagnesemia, admitted to TCU with debility, here for rehabilitation, strengthening, prior to discharge home alone. 11/05/2023 NCS showed peripheral polyneuropathy. 11/06/2023 Dr. Lainez thought severe right mastoiditis not likely. Discharge home alone 11/15/2023, [facility] PT, Rollator. Rollator: Patient unsafe to use a cane and requires a rollator for ambulation. Physical Exam Const alert General Appearance: cooperative HEENT normocephalic Eyes PERRL and EOMs intact bilaterally Neck supple, no JVD and no carotid bruits Resp normal respiratory effort, normal air movement and clear to auscultation bilaterally Cardio regular rate and regular rhythm GI normal to inspection, nondistended, normoactive bowel sounds, non-tender and non-distended Extremity normal capillary refill General Extremity: Negative for edema Skin no rashes or lesions noted General Skin Exam: no breakdown Psych affect normal Appearance: appropriate Weight / BMI Weight Weight: 82.242 kg Body Mass Index (BMI) 26.0 ABG / Lab / Microbiology Data 11/11/23 05:23 11/12/23 05:21 Laboratory: Laboratory Results - last 24 hr 11/11/23 05:23: Diff Path Review Reviewed 11/12/23 05:21: Sodium 139, Potassium 4.3, Chloride 110 H, Carbon Dioxide 21.0, Anion Gap 8, BUN 57 H, Creatinine 2.20 H, Estim Creat Clear Calc 32.26, Est GFR (MDRD) Af Amer 38 L, Est GFR (MDRD) Non-Af 32 L, BUN/Creatinine Ratio 25.9 H, Glucose 104, Calcium 8.9 D/C Instructions Discharge Diet: No restrictions Discharge Activity: Return to Normal Activity, May Shower and Use Walker Weight Bearing Status: Weight bearing as tolerated Call your doctor if you observe: Fever of 101 or Higher, Inability to urinate, Inability to have a bowel movement, Shortness of breath, Dizziness, Fainting spells, Swelling in the ankles, Chest pain and Uncontrolled pain Additional Instructions: Discharge home alone 11/15/2023, [facility] PT, Rollator. Rollator: Patient unsafe to use a cane and requires a rollator for ambulation. Please Follow Up With: David Lainez MD When: As scheduled. Meaningful Use Info Meaningful Use Meaningful Use Diagnoses (Choose all that apply): None applicable Ischemic Stroke Statin Dosing Therapy Reference: STATIN DOSE THERAPY REFERENCE: * Patients > 75 years receive moderate or high dose statin therapy. * Patients 75 years or YOUNGER should receive HIGH intensity statin dose unless contraindicated. You will be required to document reason for non-treatment if statin daily dose does not meet guidelines. HIGH DOSE STATIN THERAPY DAILY Atorvastatin > than or = to 40 mg Rosuvastatin > than or = to 20 mg Amlodipine + Atorvastatin > than or = to 2.5/40 mg Ezetimibe + Simvastatin 10/80 mg Simvastatin 80mg Discharge Plan Admission Admit Date/Time: 11/03/23 16:04 Primary Reason for Your Visit: Debility. Attending Provider: Leighton Orozco Chi Primary Care Provider: Leighton Orozco Chi Instructions Additional Instructions / Restrictions: Discharge home alone 11/15/2023, [facility] PT, Rollator. Rollator: Patient unsafe to use a cane and requires a rollator for ambulation. Discharge Orders/Prescriptions Prescriptions: New diltiazem HCl 180 mg Capsule,Extended Release 24hr 180 mg PO DAILY 30 Days Qty: 30 0RF acetaminophen 500 mg Tablet 1,000 mg PO Q6 Qty: 0 0RF Continued ascorbic acid (vitamin C) 500 mg tablet 500 mg PO DAILY escitalopram oxalate [Lexapro] 5 mg tablet 5 mg PO DAILY magnesium oxide 400 mg magnesium tablet 400 mg PO DAILY Xarelto 20 mg tablet 10 mg PO DAILY Rx Instructions: must administer with evening meal hydroxyurea 500 mg capsule 1,500 mg PO DAILY albuterol sulfate 90 mcg/actuation HFA aerosol inhaler 1 inh INHALATION Q4H PRN (Reason: shortness of breath or wheezing) omeprazole 40 mg capsule,delayed release(DR/EC) 40 mg PO DAILY Patient Comments: TAKE 1 CAPSULE BY MOUTH ONCE DAILY zolpidem 5 mg tablet 10 mg PO QHS PRN PRN (Reason: sleep) metoprolol tartrate 100 mg tablet 150 mg PO DAILY Repatha SureClick 140 mg/mL pen injector 140 mg SUBCUT QMONTH Patient Comments: INJECT 140 MG SUBCUTANEOUSLY ONCE EVERY MONTH calcitriol 0.25 mcg capsule 0.25 mcg PO DAILY ergocalciferol (vitamin D2) 1,000 unit capsule 50 mcg PO DAILY fluticasone propionate 50 mcg/actuation spray,suspension 1 spray INTRANASAL BID Discontinued acetaminophen [Tylenol] 325 mg capsule 650 mg PO Q4H ergocalciferol (vitamin D2) 1,250 mcg (50,000 unit) capsule 50,000 unit PO QMONTH Patient Comments: TAKE 1 CAPSULE BY MOUTH ONCE EVERY MONTH amlodipine 5 mg tablet 5 mg PO DAILY diltiazem HCl [DILT-XR] 120 mg capsule,ext.rel 24h degradable 120 mg PO Q24H linezolid 600 mg tablet 600 mg PO Q12H 10 Days Qty: 20 0RF cefdinir 300 mg capsule 300 mg PO Q12H 10 Days Qty: 20 0RF metronidazole 500 mg tablet 500 mg PO TID Qty: 30 0RF Referrals / Follow Up: Leighton Orozco Chi, MD [Primary Care Provider] - Within 1 Week (daughter will make appt) Disposition Disposition (needs filled in before D/C Order can be placed): Home, Self Care
[2023-11-12] MEDS: Zolpidem Tartrate 5 MG Tablet 10 MG PO (21:03)
[2023-11-12] MEDS: Hydroxyurea 500 MG Capsule 1500 MG PO (21:07)
[2023-11-12] MEDS: Albuterol IH (6.7 GM) 1 PUFF INHALER INHALATION (22:59)
[2023-11-13] MEDS: Acetaminophen 500 MG Tablet 1000 MG PO ×3 (06:20→18:16)
[2023-11-13] MEDS: Acyclovir 200 MG Capsule 400 MG PO ×5 (06:20→21:01)
[2023-11-13] MEDS: metroNIDAZOLE 500 MG Tablet PO ×2 (06:21→13:03)
--- NOTE | 2023-11-13 08:02 | MDS.RN ---
Information for the MDS was obtained from review of the clinical record, interview of resident, staff, and direct observation of resident?s care.
[2023-11-13] MEDS: Fluticasone 0.05% 1 SPRAY NASAL.SRY NASAL ×2 (10:22→20:56)
[2023-11-13] MEDS: dilTIAZem CD 180 MG Capsule PO (10:22)
[2023-11-13] MEDS: Pantoprazole Sodium 40 MG Tablet PO (10:22)
[2023-11-13] MEDS: Magnesium Chloride 64 MG Delay Rel.Tablet 128 MG PO (10:22)
[2023-11-13 10:23] VITALS: BP 142/86; PULSE 125
[2023-11-13] MEDS: Metoprolol Tartrate 50 MG Tablet 150 MG PO (10:23)
[2023-11-13] MEDS: Cholecalciferol (VIT D3) 25 MCG TABLET (1,000 UNITS) 50 MCG PO (10:27)
[2023-11-13] MEDS: Cefdinir 300 MG Capsule PO (10:27)
[2023-11-13] MEDS: Ascorbic Acid 500 MG Tablet PO (10:27)
[2023-11-13] MEDS: Calcitriol 0.25 MCG Capsule PO (10:27)
[2023-11-13] MEDS: Linezolid 600 MG Tablet PO (10:29)
[2023-11-13] MEDS: COVID VAC 23-24(12UP)(ANDU)/PF 50 MCG/0.5 ML SYR/VIAL IM (10:35)
--- NOTE | 2023-11-13 10:47 | NURSING ---
PT RECEIVED THE SPIKEVAX [id number] IN LEFT DELT. PT TOLERATED WELL. WILL CONTINUE TO MONITOR.
[2023-11-13] MEDS: Petrolatum 33% Tube 1 APPLIC TOPICAL ×2 (10:50→20:58)
[2023-11-13 10:54] VITALS: BP 142/86; PULSE 125
--- NOTE | 2023-11-13 14:43 | CASEMGMT ---
BIMS () and PHQ9() interviews completed on this date for MDS assessment. AMOR Dillard
[2023-11-13 16:00] VITALS: BP 136/72; PULSE 85; RESP 16; TEMP 36.6; O2SAT 99
[2023-11-13] MEDS: Rivaroxaban 10 MG Tablet PO (18:17)
[2023-11-13] MEDS: Albuterol IH (6.7 GM) 1 PUFF INHALER INHALATION (20:55)
[2023-11-13] MEDS: Menthol/Lanolin/Calamine/Znox 113 GM Tube 1 APPLIC TOPICAL (20:59)
[2023-11-13] MEDS: Zolpidem Tartrate 5 MG Tablet 10 MG PO (20:59)
[2023-11-13 21:00] VITALS: PULSE 94; O2SAT 98
[2023-11-13] MEDS: Hydroxyurea 500 MG Capsule 1500 MG PO (21:00)
[2023-11-14] MEDS: Acyclovir 200 MG Capsule 400 MG PO ×5 (05:19→21:32)
[2023-11-14] MEDS: Acetaminophen 500 MG Tablet 1000 MG PO ×3 (05:19→18:46)
[2023-11-14 07:11] LABS: Anion Gap 8 (5-15); BUN 53 mg/dL (7-18); Calcium,Total 9.2 mg/dL (8.5-10.1); Chloride 114 mmol/L (98-107); Creatinine, Serum 1.89 mg/dL (0.70-1.30); EST Glomerular Filtration Rate 38 mL/min (>60); Est Glom Filt Rate - Afr Amer 46 mL/min (>60); Estimated Creatinine Clearance 37.55 ml/min; Glucose 94 mg/dL (74-106); Potassium 4.2 mmol/L (3.5-5.1); Sodium Level 140 mmol/L (136-145)
[2023-11-14] MEDS: Albuterol IH (6.7 GM) 1 PUFF INHALER INHALATION ×2 (08:56→21:33)
[2023-11-14] MEDS: Fluticasone 0.05% 1 SPRAY NASAL.SRY NASAL ×2 (08:56→21:29)
[2023-11-14 08:57] VITALS: BP 127/66; PULSE 119
[2023-11-14] MEDS: Metoprolol Tartrate 50 MG Tablet 150 MG PO (08:57)
[2023-11-14] MEDS: Magnesium Chloride 64 MG Delay Rel.Tablet 128 MG PO (08:58)
[2023-11-14] MEDS: dilTIAZem CD 180 MG Capsule PO (08:58)
[2023-11-14] MEDS: Pantoprazole Sodium 40 MG Tablet PO (08:58)
[2023-11-14] MEDS: Calcitriol 0.25 MCG Capsule PO (08:59)
[2023-11-14] MEDS: Cholecalciferol (VIT D3) 25 MCG TABLET (1,000 UNITS) 50 MCG PO (08:59)
[2023-11-14] MEDS: Ascorbic Acid 500 MG Tablet PO (08:59)
[2023-11-14 09:04] VITALS: BP 127/66; PULSE 119
--- NOTE | 2023-11-14 10:47 | NURSING ---
PER GROCERY CLERK, OFFICE CALLED AND CANCELED PT APPOINTMENT TODAY. DAUGHTER WILL BE NOTIFIED AND WILL HAVE TO CALL AND RESCHEDULE PT APPOINTMENT DUE TO PT BEING D/C TOMORROW.11/15/23 RN AWARE
[2023-11-14] MEDS: Petrolatum 33% Tube 1 APPLIC TOPICAL ×2 (11:57→21:31)
[2023-11-14 15:19] VITALS: BP 126/74; PULSE 88; RESP 18; TEMP 36.5; O2SAT 100
[2023-11-14] MEDS: Rivaroxaban 10 MG Tablet PO (18:46)
[2023-11-14 20:55] VITALS: BP 141/85; PULSE 62; RESP 14; TEMP 36.8; O2SAT 98
[2023-11-14] MEDS: Zolpidem Tartrate 5 MG Tablet 10 MG PO (21:29)
[2023-11-14] MEDS: Hydroxyurea 500 MG Capsule 1500 MG PO (21:30)
[2023-11-14] MEDS: Menthol/Lanolin/Calamine/Znox 113 GM Tube 1 APPLIC TOPICAL (21:31)
[2023-11-15] MEDS: Acyclovir 200 MG Capsule 400 MG PO ×2 (05:50→09:28)
[2023-11-15] MEDS: Acetaminophen 500 MG Tablet 1000 MG PO (05:50)
[2023-11-15 05:53] VITALS: O2SAT 95
[2023-11-15] MEDS: dilTIAZem CD 180 MG Capsule PO (09:26)
[2023-11-15] MEDS: Escitalopram Oxalate 10 MG Tablet 5 MG PO (09:26)
[2023-11-15] MEDS: Magnesium Chloride 64 MG Delay Rel.Tablet 128 MG PO (09:27)
[2023-11-15] MEDS: Pantoprazole Sodium 40 MG Tablet PO (09:27)
[2023-11-15] MEDS: Cholecalciferol (VIT D3) 25 MCG TABLET (1,000 UNITS) 50 MCG PO (09:27)
[2023-11-15] MEDS: Calcitriol 0.25 MCG Capsule PO (09:27)
[2023-11-15] MEDS: Ascorbic Acid 500 MG Tablet PO (09:27)
[2023-11-15] MEDS: Petrolatum 33% Tube 1 APPLIC TOPICAL (09:28)
[2023-11-15] MEDS: Fluticasone 0.05% 1 SPRAY NASAL.SRY NASAL (09:28)
[2023-11-15 09:29] VITALS: PULSE 129
[2023-11-15] MEDS: Menthol/Lanolin/Calamine/Znox 113 GM Tube 1 APPLIC TOPICAL (09:29)
[2023-11-15] MEDS: Metoprolol Tartrate 50 MG Tablet 150 MG PO (09:29)
[2023-11-15 10:15] VITALS: BP 147/81; PULSE 129; RESP 18; TEMP 36.6; O2SAT 97
== END 2023-11-15 12:50 | disposition home or self-care (01) | DRG 74 ==
PROVIDERS: Admitting Provider Family Medicine Geriatric Medicine; PCP Family Medicine Geriatric Medicine; Visit Provider Family Medicine Geriatric Medicine
DX: G62.9 Polyneuropathy, unspecified (principal); R47.01 Aphasia; H70.001 Acute mastoiditis without complications, right ear; C91.10 Chronic lymphocytic leukemia of B-cell type not having achieved remission; K21.9 Gastro-esophageal reflux disease without esophagitis; B00.1 Herpesviral vesicular dermatitis; J84.10 Pulmonary fibrosis, unspecified; J43.9 Emphysema, unspecified; I10 Essential (primary) hypertension; E21.3 Hyperparathyroidism, unspecified; E55.9 Vitamin D deficiency, unspecified; J30.9 Allergic rhinitis, unspecified; E78.5 Hyperlipidemia, unspecified; I25.10 Atherosclerotic heart disease of native coronary artery without angina pectoris; G47.00 Insomnia, unspecified; Z86.718 Personal history of other venous thrombosis and embolism; Z79.01 Long term (current) use of anticoagulants; Z79.899 Other long term (current) drug therapy; Z79.51 Long term (current) use of inhaled steroids; Z86.711 Personal history of pulmonary embolism; N40.0 Benign prostatic hyperplasia without lower urinary tract symptoms; Z23 Encounter for immunization
CPT/HCPCS: 36415; 80048; 85025; 87811; 90480; 97110; 97162; 97166; 97530; 97535; 91322; A4216

== ENCOUNTER → 2023-11-05 | Outpatient (CLI) | payer MEDICARE, OTHER, SELFPAY | END | disposition home or self-care (01) | PROVIDERS: PCP Family Medicine Geriatric Medicine; Referring Provider Physician Assistant; Visit Provider Physician Assistant | DX: R20.2 Paresthesia of skin (principal) | CPT/HCPCS: 95886; 95910 ==

== ENCOUNTER → 2023-11-07 | Outpatient (CLI) | payer MEDICARE, OTHER, SELFPAY ==
--- NOTE | 2023-11-07 09:58 | MRI_ITS ---
EXAM: MR HEAD WITHOUT INTRAVENOUS CONTRAST CLINICAL INDICATION: Blurred vision for 1 minute yesterday. This has resolved now. TECHNIQUE: Multiplanar and multisequence MR images of the brain were obtained without intravenous contrast. COMPARISON: MRI brain without contrast 10/30/2023. FINDINGS: BRAIN AND EXTRA-AXIAL SPACES: Unremarkable. No intra- or extra-axial hemorrhage. No intracranial mass or mass effect. Posterior fossa structures are unremarkable. No diffusion restriction to suspect acute or subacute ischemic infarct. No focal signal abnormalities throughout the brain parenchyma in all pulse sequences. Normal ventricles and cisterns. No communicating or noncommunicating hydrocephalus. SELLA: Unremarkable. Normal sella turcica, pituitary gland, infundibular stalk, optic chiasm and hypothalamus. AUDITORY SYSTEM: Unremarkable. The internal auditory canals are patent. BONES/JOINTS: No significant abnormality. SINUSES: Mild mucosal thickening in the ethmoid sinuses and minimal mucosal thickening with retention cysts in the maxillary sinuses. MASTOID AIR CELLS: Pronounced mucosal edema of right temporal mastoid air cells is unchanged. The mucosal edema in the medial aspect of the right inferior temporal mastoid bones is coalescent. Normal left mastoid air cells. ORBITS: Unremarkable as visualized. Both globes, extraocular muscles, optic nerves and retrobulbar fat appear unremarkable. VASCULATURE: Unremarkable as visualized. Normal flow voids in the major intracranial circulation. SOFT TISSUES: No significant abnormality. MRI/Brain without Contrast IMPRESSION: 1. Normal MRI brain without contrast. 2. Pronounced mucosal edema of the right temporal mastoid air cells but coalescent mucosal edema in the medial aspect of the right inferior temporal mastoid air cells due to mastoiditis. This is unchanged when compared to 10/30/2023. 3. No significant interval change when compared to 10/30/2023. Electronically Signed: Diego Reed MD at 11:13 EDT ,
== END | disposition home or self-care (01) ==
PROVIDERS: PCP Family Medicine Geriatric Medicine; Visit Provider Family Medicine Geriatric Medicine
DX: H53.2 Diplopia (principal); I63.9 Cerebral infarction, unspecified
CPT/HCPCS: 70551

== ENCOUNTER → 2023-12-10 | Outpatient (CLI) | payer MEDICARE, OTHER, SELFPAY ==
--- NOTE | 2023-12-10 14:55 | CT_ITS ---
ACR Level 3 findings have been noted. An addendum which confirms receipt of the report will follow. STUDY: CTA OF THE ABDOMINAL AORTA AND BILATERAL LOWER EXTREMITIES REASON FOR EXAM: Male, 68 years old. PAOD with claudication RADIATION DOSAGE (If Supplied By Facility): CTDIvol = ( 8.62 ) mGy, DLP = ( 1330.94 ) mGycm TECHNIQUE: Axial CT angiography multi-detector data acquisition was obtained from the diaphragm to the ankles following intravenous administration of IV 100mL Isovue-370. Axial images and MIP images were reconstructed from the axial data set. Post-processing of the angiographic images was performed, with multiplanar reformation and 3D reconstruction. Individualized dose optimization techniques were used for this CT. The protocol utilizes one or more of the following dose reduction techniques: automated exposure control, adjustment of mA and/or kV according to patient size,and/or use of iterative reconstruction technique. TECHNICAL QUALITY: Good COMPARISON: None. Descriptors of Narrowing: None (0%) Mild (< 50%) Moderate (50-70%) Severe (70-90%) Subtotal/Total Occlusion (90-100%) Non-Evaluable (technically non-diagnostic FINDINGS: Cardiomegaly. Air-fluid levels noted throughout the small and large bowel. Colonic diverticulosis noted. IVC filter present. The renal veins. Intramedullary yeimy left femur. Solid and hollow viscus otherwise unremarkable. Abdominal aorta: No demonstrated narrowing. Celiac and superior mesenteric arteries: No demonstrated narrowing. Inferior mesenteric artery: No demonstrated narrowing. Right renal artery(arteries): Mild right renal artery stenosis due to calcified plaque. Left renal artery(arteries): Moderate left renal artery stenosis due to calcified renal plaque. Right common iliac artery: No demonstrated narrowing. Right external iliac artery: No demonstrated narrowing. Right internal iliac artery: No demonstrated narrowing. Left common iliac artery: No demonstrated narrowing. Left external iliac artery: No demonstrated narrowing. Left internal iliac artery: No demonstrated narrowing. RIGHT LOWER EXTREMITY Right common femoral artery: There is severe diffuse narrowing. Right profundus femoris: There is moderate diffuse narrowing. Right superficial femoral: There is severe diffuse narrowing. Right popliteal artery: There is severe diffuse narrowing. Right tibioperoneal trunk: There is severe diffuse narrowing. Right anterior tibial artery: No demonstrated narrowing. Right posterior tibial artery: No demonstrated narrowing. Right peroneal artery: No demonstrated narrowing. LEFT LOWER EXTREMITY Left common femoral artery: There is severe diffuse narrowing. Left profundus femoris: There is mild diffuse narrowing. Left superficial femoral: There is severe diffuse narrowing. Left popliteal artery: No demonstrated narrowing. Left tibioperoneal trunk: There is severe diffuse narrowing. Left anterior tibial artery: No demonstrated narrowing. Left posterior tibial artery: No demonstrated narrowing. Left peroneal artery: No demonstrated narrowing. CT/CTA Abd w/Runoff W/WO Contrast IMPRESSION: Left greater than right renal artery stenosis. Multiple severe bilateral stenoses including the common femoral arteries and superficial femoral arteries with occlusion or near occlusion with collateral flow and three-vessel runoff bilaterally. Vascular surgery consultation recommended. Electronically Signed: Alf Frederick MD at 0:22 EDT ,
== END | disposition home or self-care (01) ==
PROVIDERS: PCP Family Medicine Geriatric Medicine; Referring Provider Physician Assistant; Visit Provider Physician Assistant
DX: I77.9 Disorder of arteries and arterioles, unspecified (principal); I73.9 Peripheral vascular disease, unspecified; I70.1 Atherosclerosis of renal artery
CPT/HCPCS: 75635; J7040; Q9967

== ENCOUNTER → 2023-12-25 | Outpatient (CLI) | payer MEDICARE, OTHER, SELFPAY ==
[2023-12-25 12:41] LABS: PTHIN 69.5 pg/mL (18.4-80.1)
[2023-12-25 12:44] LABS: Albumin, Serum 3.6 g/dL (3.2-5.0); BUN 41 mg/dL (7-18); BUN/Creat Ratio 25.8 RATIO (10-20); Calcium,Total 8.1 mg/dL (8.5-10.1); Chloride 109 mmol/L (98-107); Creatinine, Serum 1.59 mg/dL (0.70-1.30); EST Glomerular Filtration Rate 46 mL/min (>60); Est Glom Filt Rate - Afr Amer 56 mL/min (>60); Glucose 110 mg/dL (74-106); Magnesium 1.1 mg/dL (1.6-2.6); Phosphorus 3.5 mg/dL (2.5-4.9); Potassium 4.6 mmol/L (3.5-5.1); Sodium Level 138 mmol/L (136-145)
[2023-12-25 12:45] LABS: Vitamin D,25 Hydroxy 36.6 ng/mL
== END | disposition home or self-care (01) ==
LOC: POLAB3 11:32
PROVIDERS: PCP Family Medicine Geriatric Medicine; Visit Provider Internal Medicine Nephrology
DX: E83.42 Hypomagnesemia (principal); N18.32 Chronic kidney disease, stage 3b; E83.51 Hypocalcemia
CPT/HCPCS: 36415; 80069; 82306; 83735; 83970

== ENCOUNTER 2024-01-12 12:15 | Outpatient (CLI) | payer MEDICARE, OTHER, SELFPAY ==
[2024-01-12] MEDS: 0.9% Normal Saline (1000mL) 1,000 ML 999 ML IV ×2 (12:50→13:59)
[2024-01-12] MEDS: 0.9% NaCl Peripheral Flush Adult/Peds IV (12:53)
[2024-01-12] MEDS: Ondansetron 8 MG Tablet PO (13:12)
[2024-01-12 15:16] VITALS: BP 173/70; PULSE 100; RESP 16; TEMP 36.8; O2SAT 98
== END 2024-01-12 23:59 | disposition home or self-care (01) ==
LOC: MEDOUTP 12:16
PROVIDERS: PCP Family Medicine Geriatric Medicine; Referring Provider Family Medicine Geriatric Medicine; Visit Provider Family Medicine Geriatric Medicine
DX: E86.0 Dehydration (principal)
CPT/HCPCS: 96360; 96361; J7030; J7050; A4216

== ENCOUNTER 2024-01-12 15:27 | Emergency (ER) | payer MEDICARE, OTHER, SELFPAY ==
[2024-01-12 15:29] VITALS: BP 158/95; PULSE 103; RESP 16; TEMP 36.8; O2SAT 98; BMI 27.8
--- NOTE | 2024-01-12 16:23 | EX.ED.DYSGE1 ---
HPI History of Present Illness Chief Complaint: Abn Labs Informant: patient Onset/Context/Timing Onset: Days Context: Gradual Onset Timing: Continuous Quality: Lightheaded, fatigue Location: Generalized Worsened by: Nothing Relieved by: Nothing Narrative Narrative: Patient presents with lightheadedness and fatigue that has been getting worse over the past few days. Patient saw his primary care physician today who did outpatient blood work. Patient was then referred to the infusion center for 2 L of IV fluids. While he was there, his primary care physician called him and told him that his magnesium level was very low and he should probably come to the emergency department. Patient states he has been having some diarrhea over the past few days. Patient admits to some nausea but denies any vomiting. Patient admits to some pain over the left lower lateral chest. Patient admits to some shortness of breath and cough. Patient admits to some subjective chills but denies any fevers. [facility] Medical History Mastoiditis of right side Recurrent deep vein thrombosis (DVT) Depressive disorder due to another medical condition with depressive features History of pulmonary embolism History of DVT (deep vein thrombosis) Iron deficiency anemia due to chronic blood loss Emphysema lung Dyslipidemia Multiple lipomas History of elevated PSA BPH (benign prostatic hyperplasia) AVM (arteriovenous malformation) of colon Chronic GI bleeding Diverticular disease History of skin cancer Multiple lung nodules Cancer of kidney Essential thrombocythemia Hydrocele Femur fracture (~2020) Pulmonary fibrosis Pulmonary embolism DVT (deep venous thrombosis) Obstructive sleep apnea Coronary artery disease CLL (chronic lymphocytic leukemia) Rhodes esophagus COPD (chronic obstructive pulmonary disease) Home Medications ?Medication ?Instructions ?Recorded ?Last Taken ?Type albuterol sulfate 90 mcg/actuation 1 inh inhalation Q4H PRN shortness 12/26/22 Unknown History aerosol inhaler of breath or wheezing omeprazole 40 mg capsule,delayed 40 mg PO DAILY GERD 12/26/22 11/03/23 08:55 History release zolpidem 5 mg tablet 10 mg PO QHS PRN PRN sleep 12/26/22 Unknown History escitalopram oxalate 5 mg tablet 5 mg PO DAILY Mood 01/30/23 11/03/23 08:55 History (Lexapro) ascorbic acid (vitamin C) 500 mg 500 mg PO DAILY Supplement 02/06/23 11/03/23 08:55 History tablet magnesium oxide 400 mg PO DAILY GERD 02/06/23 11/03/23 08:55 History evolocumab 140 mg/mL subcutaneous 140 mg subcut QMONTH [facility] 08/19/23 Unknown History pen injector (Kenji Hennessy) metoprolol tartrate 100 mg tablet 150 mg PO DAILY BP 10/07/23 11/03/23 08:55 History rivaroxaban 20 mg tablet (Xarelto) 10 mg PO DAILY Blood Thinner 10/07/23 10/30/23 History ergocalciferol (vitamin D2) 1,000 50 mcg PO DAILY Supplement 10/29/23 Unknown History unit capsule fluticasone propionate 50 1 spray intranasal BID Allergies 10/29/23 Unknown History mcg/actuation nasal spray,suspension acetaminophen 500 mg tablet 1,000 mg (2 x 500 mg) PO Q6 #0 tabs 11/12/23 Unknown Rx diltiazem HCl 180 mg 180 mg PO DAILY 30 days #30 caps 11/12/23 Unknown Rx capsule,extended release 24 hr fluticasone fur. 100 mcg-umeclid 1 inh inhalation Q24H 12/17/23 Unknown History 62.5 mcg-vilant 25 mcg inhalat.powder (Trelegy Ellipta) hydroxyurea 500 mg capsule 1,500 mg PO DAILY Chemo 12/17/23 Unknown History ondansetron HCl 8 mg tablet 8 mg PO Q12H PRN 01/01/24 Unknown History Allergy/AdvReac Type Severity Reaction Status Date / Time Penicillins Allergy PT UNSURE Verified 01/12/24 15:28 OF REACTION doxycycline AdvReac Unknown Upset Verified 01/12/24 15:28 Stomach Family History Father Myocardial infarction Mother Colon cancer Surgical History History of heart artery stent (~2018) History of hernia surgery (~2021) H/O kidney removal (~2017) History of bowel resection Hx of tonsillectomy Social History household members: none Smoking Status: Former smoker pack-years: 10 alcohol intake: never substance use type: does not use, former substance user and other details: marijuana ROS ROS ED Constitutional Constitutional ED: Reports chills and subjective; Denies fever(s) Eyes Eyes: Denies blurry vision or change in vision ENT ENT ED: Reports sore throat; Denies rhinorrhea Cardiovascular Cardiovascular: Reports chest pain; Denies palpitations Respiratory/Chest Respiratory/Chest: Reports cough and dyspnea Gastrointestinal Gastrointestinal: Reports diarrhea and nausea; Denies abdominal pain or vomiting Genitourinary Genitourinary ED: Denies dysuria or hematuria Musculoskeletal Musculoskeletal: Reports neck pain; Denies back pain Integumentary Denies abscess or rash Neurologic Neurologic: Reports headache(s); Denies weakness Allergic/Immunologic Allergic/Immunologic ED: Denies mouth swelling or urticaria EXAM Physical Exam Const Vital Signs: 01/12/24 15:28 01/12/24 15:29 01/12/24 16:28 Temperature 98.2 F Temperature Source Oral Pulse Rate 103 H 99 Respiratory Rate 16 18 Respiratory Effort Normal Non-Labored Respiratory Pattern Normal Blood Pressure 158/95 H 142/86 H Blood Pressure Mean 116 104 Pulse Ox 98 99 Oxygen Delivery Method Room Air 01/12/24 17:00 01/12/24 18:00 01/12/24 19:00 Temperature Temperature Source Pulse Rate 103 H 111 H 96 Respiratory Rate 16 26 H 20 H Respiratory Effort Respiratory Pattern Blood Pressure 151/81 H 145/83 H 143/79 H Blood Pressure Mean 104 103 100 Pulse Ox 99 95 99 Oxygen Delivery Method Room Air Positive well nourished and well developed General Appearance ED: well developed and NAD HEENT Reports moist mucous membranes Neck supple and no JVD Resp normal respiratory effort and clear to auscultation bilaterally Cardio regular rate and regular rhythm GI non-tender and non-distended Palpation: soft Neuro oriented x3, CN's II-XII intact bilaterally and no sensory deficits noted Sensorium / Orientation: alert Motor Exam: strength 5/5 throughout Psych mental status grossly normal MDM MDM MDM Narrative Medical decision making narrative: Differential diagnosis includes cardiac dysrhythmia, cardiac ischemia, hypophosphatemia, pneumonia, and congestive heart failure. Chest x-ray will be obtained to assess for pneumonia and congestive heart failure. EKG will be obtained to assess for cardiac dysrhythmia and cardiac ischemia. High-sensitivity troponin will be obtained to assess for cardiac ischemia. Serum phosphorus will be obtained to assess for hypophosphatemia. History & Record Review Additional record(s) reviewed:: Prior labs Lab Data Labs: Laboratory Results - last 24 hr 01/12/24 01/12/24 16:42 19:15 Phosphorus 2.5 Magnesium 1.0 L Troponin I High Sens 10 Radiography Chest X-Ray - ED: 2 View, Read by ED Physician, Read by Radiologist and No Acute Disease Diagnostic Testing: Clinical Impression(s) from Imaging Studies Chest X-Ray 01/12/24 16:51 IMPRESSION: No radiographic evidence of acute cardiopulmonary disease. Electronically Signed: Naif Navas MD at 17:08 EDT , PA and lateral chest x-ray was obtained. There are 2 views. On my independent interpretation, lung morales are clear. There is normal cardiac silhouette. Bony thorax is normal. There is no acute process noted. Radiologist also interpreted the x-ray and agrees. EKG Initial EKG: Attestation: I personally reviewed and interpreted this EKG as follows: Interpretation: No Acute Injury Pattern, Sinus Tachycardia (102) and LAFB Comments: EKG was obtained. On my independent interpretation, it showed a sinus tachycardia with premature atrial complexes with a rate of 102. CO interval, QRS interval, and QTc intervals were all normal. There is left axis deviation at -56. There is a left anterior fascicular block noted. There are no acute ST or T wave changes. Prior EKG tracings: available for review Prior: Unchanged (11/03/2023) Follow-up EKG: Attestation: I personally reviewed and interpreted this EKG as follows: Interpretation: Sinus Rhythm (97) and No Acute Injury Pattern Comments: EKG was obtained. On my independent interpretation, it showed a normal sinus rhythm with occasional PACs and fusion beats with a rate of 97. CO interval, QRS interval, and QTc intervals were all normal. There is left axis deviation at -51. There is a left anterior fascicular block pattern noted. There are no acute ST or T wave changes. Prior EKG tracings: available for review Prior: Unchanged Treatment and Re-Evaluation :: Patient was given 2 g of magnesium here. Patient did develop some pain in his chest. Because of this, repeat EKG was obtained. This was unchanged compared to previous EKG. Repeat magnesium level was obtained and was improved to 1.0. Patient is feeling better on reevaluation. Patient was advised of his findings. Patient was instructed to continue his magnesium regimen as previously prescribed. Patient was instructed to follow-up with his primary care physician in 3 to 5 days. Patient was instructed to return if worse in any way. Patient understood and was agreeable with the plan. All questions were answered. Discharge Plan Triage Chief Complaint: Abn Labs ED Provider: Quentin Montalvo Dx/Rx/DC Orders Clinical Impression: Hypomagnesemia, CLL (chronic lymphocytic leukemia), Weakness Instructions: Hypomagnesemia Dc, ED Weakness (Uncertain Cause) Prescriptions: No Action ascorbic acid (vitamin C) 500 mg tablet 500 mg PO DAILY escitalopram oxalate [Lexapro] 5 mg tablet 5 mg PO DAILY magnesium oxide 400 mg magnesium tablet 400 mg PO DAILY Xarelto 20 mg tablet 10 mg PO DAILY Rx Instructions: must administer with evening meal hydroxyurea 500 mg capsule 1,500 mg PO DAILY Rx Instructions: rest on Friday Trelegy Ellipta 100-62.5-25 mcg blister with device 1 inh inhalation Q24H albuterol sulfate 90 mcg/actuation HFA aerosol inhaler 1 inh INHALATION Q4H PRN (Reason: shortness of breath or wheezing) omeprazole 40 mg capsule,delayed release(DR/EC) 40 mg PO DAILY Patient Comments: TAKE 1 CAPSULE BY MOUTH ONCE DAILY zolpidem 5 mg tablet 10 mg PO QHS PRN PRN (Reason: sleep) metoprolol tartrate 100 mg tablet 150 mg PO DAILY Repatha SureClick 140 mg/mL pen injector 140 mg SUBCUT QMONTH Patient Comments: INJECT 140 MG SUBCUTANEOUSLY ONCE EVERY MONTH ergocalciferol (vitamin D2) 1,000 unit capsule 50 mcg PO DAILY fluticasone propionate 50 mcg/actuation spray,suspension 1 spray INTRANASAL BID diltiazem HCl 180 mg Capsule,Extended Release 24hr 180 mg PO DAILY 30 Days Qty: 30 0RF acetaminophen 500 mg Tablet 1,000 mg PO Q6 Qty: 0 0RF Primary Care Provider: Leighton Orozco Chi Referrals: Leighton Orozco Chi, MD [Primary Care Provider] - 3-5 Days Print Language: Hungarian Disposition Disposition: Home, Self Care
[2024-01-12 16:28] VITALS: BP 142/86; PULSE 99; RESP 18; O2SAT 99
--- NOTE | 2024-01-12 16:29 | EKG12_ITS ---
Test Reason : DYSRHYTHMIA Blood Pressure : / mmHG Vent. Rate : 097 BPM Atrial Rate : 097 BPM P-R Int : 148 ms QRS Dur : 104 ms QT Int : 366 ms P-R-T Axes : 064 -51 061 degrees QTc Int : 464 ms Sinus rhythm with Fusion complexes and Premature atrial complexes Left anterior fascicular block Abnormal ECG Confirmed by DONTA COLINDRES, PETRONA ([id number]), medical editor COSTA MILLARD ([id number]) on 01/13/2024 8:49:37 AM Referred By: REGINO Confirmed By:PETRONA LONGO MD
--- NOTE | 2024-01-12 16:51 | RAD_ITS ---
INDICATION: Cough EXAMINATION/TECHNIQUE: X-RAY - XR Chest 2 Views COMPARISON: 10/29/2023 FINDINGS: LINES/DEVICES: None. LUNGS: No consolidation, edema or effusion. No pneumothorax. MEDIASTINUM AND CARDIOVASCULAR STRUCTURES: Cardiac silhouette not enlarged. Central airways and mediastinal contour are unremarkable. BONES AND SOFT TISSUES: No acute changes. RAD/Chest PA and Lateral IMPRESSION: No radiographic evidence of acute cardiopulmonary disease. Electronically Signed: Naif Navas MD at 17:08 EDT ,
[2024-01-12 17:00] VITALS: BP 151/81; PULSE 103; RESP 16; O2SAT 99
[2024-01-12 17:18] LABS: Phosphorus 2.5 mg/dL (2.5-4.9); Troponin-I HS 10 pg/mL (3.0-78.0)
[2024-01-12] MEDS: Magnesium Sulfate 2 GM in Dextrose 5%-Water (100mL Bag) 100 ML IV (17:25)
[2024-01-12 18:00] VITALS: BP 145/83; PULSE 111; RESP 26; O2SAT 95
[2024-01-12 19:00] VITALS: BP 143/79; PULSE 96; RESP 20; O2SAT 99
--- NOTE | 2024-01-12 19:48 | EKG12_ITS ---
Test Reason : Blood Pressure : / mmHG Vent. Rate : 102 BPM Atrial Rate : 102 BPM P-R Int : 144 ms QRS Dur : 104 ms QT Int : 350 ms P-R-T Axes : 006 -56 082 degrees QTc Int : 456 ms Sinus tachycardia with Premature atrial complexes Left anterior fascicular block Abnormal ECG Confirmed by DONTA COLINDRES, PETRONA ([id number]), proposal editor COSTA MILLARD ([id number]) on 01/13/2024 8:49:56 AM Referred By: MIGUEL Confirmed By:PETRONA LONGO MD
[2024-01-12 20:00] VITALS: BP 141/78; PULSE 89; RESP 16; TEMP 36.6; O2SAT 97
== END 2024-01-12 20:26 | disposition home or self-care (01) ==
PROVIDERS: Emergency Provider Emergency Medicine; PCP Family Medicine Geriatric Medicine; Visit Provider Emergency Medicine
DX: E86.0 Dehydration (principal); C91.10 Chronic lymphocytic leukemia of B-cell type not having achieved remission; J43.9 Emphysema, unspecified; E78.5 Hyperlipidemia, unspecified; R11.0 Nausea; R53.1 Weakness; I25.10 Atherosclerotic heart disease of native coronary artery without angina pectoris; I10 Essential (primary) hypertension; R19.7 Diarrhea, unspecified; R07.9 Chest pain, unspecified; R06.02 Shortness of breath; E55.9 Vitamin D deficiency, unspecified; R05.9 Cough, unspecified; G47.33 Obstructive sleep apnea (adult) (pediatric); Z12.5 Encounter for screening for malignant neoplasm of prostate; Z86.711 Personal history of pulmonary embolism; Z86.718 Personal history of other venous thrombosis and embolism; Z87.891 Personal history of nicotine dependence
CPT/HCPCS: 96360; 96365; 36415; 71046; 80053; 82306; 83735; 84100; 84153; 84443; 84484; 85025; 93005; 96366; 99282; A4216; G0103

== ENCOUNTER → 2024-01-12 | Outpatient (CLI) | payer MEDICARE, OTHER, SELFPAY ==
[2024-01-12 11:11] LABS: Absolute Lymphocyte Count 16.41 X10^3/uL (0.83-4.51); Basophil# 0.03 X10^3/uL; Basophil% 0.1 % (0-1); Hematocrit 27.1 % (40-54); Hemoglobin 8.9 g/dL (13.0-16.5); Lymphocyte # 16.41 X10^3/ul (0.83-4.51); Lymphocyte % 60.9 % (19-41); Mean Corp Hgb Conc 32.8 g/dL (32-36); Mean Corpuscular Hgb 45.4 pg (27.0-32.0); Mean Corpuscular Volume 138.3 fL (80-94); Mean Platelet Vol. 9.6 fl (6.2-12.0); Monocyte# 8.45 X10^3/uL; Monocyte% 31.3 % (0-10); NRBC Flagged by Analyzer 0.3 % (0-5); Neutrophil # 1.96 X10^3/uL (2.7-7.7); Neutrophil % 7.3 % (47-70); POSITIVE DIFFERENTIAL YES; POSITIVE MORPHOLOGY YES; Platelet Count 414 K/mm3 (150-450); RBC Distribution Width CV 14.3 % (11.6-14.6); RBC Distribution Width SD 72.4 fl (35.1-43.9); Red Blood Count 1.96 M/mm3 (4.6-6.2)
[2024-01-12 11:16] LABS: Differential Indicated SCAN CRITERIA MET
[2024-01-12 11:45] LABS: Vitamin D,25 Hydroxy 50.6 ng/mL
[2024-01-12 11:51] LABS: ALB/GLOB Ratio 0.9 RATIO (0.9-2.4); AST(SGOT) 13 U/L (15-37); Alanine Aminotransfer ALT/SGPT 15 U/L (16-61); Albumin, Serum 3.2 g/dL (3.2-5.0); Alkaline Phosphatase 101 U/L (45-117); Anion Gap 12 (5-15); BUN 27 mg/dL (7-18); BUN/Creat Ratio 14.3 RATIO (10-20); Calcium,Total 7.2 mg/dL (8.5-10.1); Chloride 108 mmol/L (98-107); Creatinine, Serum 1.89 mg/dL (0.70-1.30); EST Glomerular Filtration Rate 38 mL/min (>60); Est Glom Filt Rate - Afr Amer 46 mL/min (>60); Globulin 3.4 g/dL (2.2-4.2); Glucose 104 mg/dL (74-106); Protein, Total 6.6 g/dL (6.4-8.2); Sodium Level 142 mmol/L (136-145); Thyroid Stim Hormone (TSH) 0.616 uIU/mL (0.358-3.740)
[2024-01-12 13:20] LABS: Anisocytosis 2+
[2024-01-12 14:53] LABS: Magnesium 0.6 mg/dL (1.6-2.6)
[2024-01-13 15:05] LABS: Pathologist Review Reviewed
== END | disposition home or self-care (01) ==
LOC: POLAB3 10:55
PROVIDERS: PCP Family Medicine Geriatric Medicine; Visit Provider Family Medicine Geriatric Medicine
DX: I10 Essential (primary) hypertension (principal); E55.9 Vitamin D deficiency, unspecified; Z12.5 Encounter for screening for malignant neoplasm of prostate
CPT/HCPCS: 36415; 80053; 82306; 83735; 84153; 84443; 85025; G0103

== ENCOUNTER 2024-01-16 16:12 | Emergency (ER) | payer MEDICARE, OTHER, SELFPAY ==
[2024-01-16 16:12] VITALS: BP 125/72; PULSE 80; RESP 16; TEMP 37; O2SAT 99
--- NOTE | 2024-01-16 16:49 | CT_ITS ---
INDICATION: left sided abd pain EXAMINATION: CT ABDOMEN AND PELVIS WITH CONTRAST - CT Abdomen And Pelvis W/ Contrast Injection TECHNIQUE: Helically acquired images were obtained of the abdomen and pelvis following IV contrast. A radiation dose optimization technique was used for this scan. IV Contrast dosage and agent: 100 cc [id number] Oral contrast: None. COMPARISON: 12/10/2023 FINDINGS: LOWER CHEST: No acute pulmonary findings. No cardiomegaly or pericardial effusion. LIVER: No concerning focal mass. GALLBLADDER AND BILIARY TREE: No calcified gallstones. No gallbladder distension or wall edema. No intra- or extrahepatic biliary ductal dilation. PANCREAS: No focal cystic or solid mass. SPLEEN: Normal size without focal cystic or solid mass. ADRENAL GLANDS: No nodules. KIDNEYS AND URETERS: Right kidney absent. No left hydronephrosis. PERITONEUM: No ascites or free air. BOWEL: No evidence of acute appendicitis. No stomach or bowel distension. No focal inflammatory change. LYMPH NODES: Shotty retroperitoneal lymph nodes without pathologic enlargement. Multiple enlarged mesenteric lymph nodes in the midabdomen, largest up to 1.9 cm. Right external iliac adenopathy. VESSELS: Aorta is non-dilated. IVC filter in place. URINARY BLADDER: Nondistended. REPRODUCTIVE ORGANS: No pelvic masses. ABDOMINAL WALL: Fat-containing umbilical and bilateral inguinal hernias. BONES: No acute or aggressive abnormality. Stable chronic fractures right L2, L3 and L4 transverse processes. CT/Abdomen/Pelvis W IV Cont ONLY IMPRESSION: No acute findings in the abdomen or pelvis. Mesenteric and right external iliac adenopathy with multiple shotty retroperitoneal lymph nodes. Correlate for possibility of lymphoproliferative disorder. Electronically Signed: Naif Navas MD at 19:15 EDT ,
--- NOTE | 2024-01-16 16:50 | ED.VIS.GI ---
HPI HPI - GI History of Present Illness Chief Complaint: Abd Pain Informant: patient and family Narrative Narrative: Severe abdominal pain that started several hours ago like mild gas pain initially, has progressively gotten worse. Mostly left upper quadrant, for a while was shooting across his upper abdomen without back or chest discomfort. He has had some nausea no vomiting. He is been having diarrhea for the past 3 weeks, it is still persistent. He was sent to the infusion center yesterday by his PCP to get some fluids and then his magnesium came back very low and he was sent here to the ER to get some replacement. The abdominal discomfort is new in the past 3 weeks. No fevers or chills. 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 [facility] Medical History Mastoiditis of right side Recurrent deep vein thrombosis (DVT) Depressive disorder due to another medical condition with depressive features History of pulmonary embolism History of DVT (deep vein thrombosis) Iron deficiency anemia due to chronic blood loss Emphysema lung Dyslipidemia Multiple lipomas History of elevated PSA BPH (benign prostatic hyperplasia) AVM (arteriovenous malformation) of colon Chronic GI bleeding Diverticular disease History of skin cancer Multiple lung nodules Cancer of kidney Essential thrombocythemia Hydrocele Femur fracture (~2020) Pulmonary fibrosis Pulmonary embolism DVT (deep venous thrombosis) Obstructive sleep apnea Coronary artery disease CLL (chronic lymphocytic leukemia) Rhodes esophagus COPD (chronic obstructive pulmonary disease) Home Medications ?Medication ?Instructions ?Recorded ?Last Taken ?Type albuterol sulfate 90 mcg/actuation 1 inh inhalation Q4H PRN shortness 12/26/22 Unknown History aerosol inhaler of breath or wheezing omeprazole 40 mg capsule,delayed 40 mg PO DAILY GERD 12/26/22 11/03/23 08:55 History release zolpidem 5 mg tablet 10 mg PO QHS PRN PRN sleep 12/26/22 Unknown History escitalopram oxalate 5 mg tablet 5 mg PO DAILY Mood 01/30/23 11/03/23 08:55 History (Lexapro) ascorbic acid (vitamin C) 500 mg 500 mg PO DAILY Supplement 02/06/23 11/03/23 08:55 History tablet [facility] 140 mg/mL [facility] [place] [facility] Unknown History pen injector (Repatha SureClick) metoprolol tartrate 100 mg tablet 150 mg PO DAILY BP 10/07/23 11/03/23 08:55 History rivaroxaban 20 mg tablet (Xarelto) 10 mg PO DAILY Blood Thinner 10/07/23 10/30/23 History acetaminophen 500 mg tablet 1,000 mg (2 x 500 mg) PO Q6 #0 tabs 11/12/23 Unknown Rx diltiazem HCl 180 mg 180 mg PO DAILY 30 days #30 caps 11/12/23 Unknown Rx capsule,extended release 24 hr fluticasone fur. 100 mcg-umeclid 1 inh inhalation Q24H 12/17/23 Unknown History 62.5 mcg-vilant 25 mcg inhalat.powder (Trelegy Ellipta) hydroxyurea 500 mg capsule 1,500 mg PO DAILY Chemo 12/17/23 Unknown History ondansetron HCl 8 mg tablet 8 mg PO Q12H PRN nausea and 01/01/24 Unknown History vomiting alprazolam 1 mg tablet 1 mg PO PRN prior to procedures 01/16/24 Unknown History calcitriol 0.25 mcg capsule 0.25 mcg PO DAILY 01/16/24 Unknown History ergocalciferol (vitamin D2) 1,250 1,250 mcg PO QMONTH 01/16/24 Unknown History mcg (50,000 unit) capsule magnesium oxide 400 mg (241.3 mg 400 mg PO DAILY 01/16/24 Unknown History magnesium) tablet Allergy/AdvReac Type Severity Reaction Status Date / Time Penicillins Allergy PT UNSURE Verified 01/12/24 15:28 OF REACTION doxycycline AdvReac Unknown Upset Verified 01/12/24 15:28 Stomach Family History Father Myocardial infarction Mother Colon cancer Surgical History History of heart artery stent (~2018) History of hernia surgery (~2021) H/O kidney removal (~2017) History of bowel resection Hx of tonsillectomy Social History household members: none Smoking Status: Former smoker pack-years: 10 alcohol intake: never substance use type: does not use, former substance user and other details: marijuana ROS ROS ED Constitutional Constitutional ED: Denies chills or fever(s) Eyes Eyes: Denies change in vision or diplopia ENT ENT ED: Denies rhinorrhea or sore throat Cardiovascular Cardiovascular: Denies chest pain or palpitations Respiratory/Chest Respiratory/Chest: Denies cough or dyspnea Gastrointestinal Gastrointestinal: Reports abdominal pain, diarrhea and nausea; Denies vomiting Genitourinary Genitourinary ED: Denies dysuria or hematuria Musculoskeletal Musculoskeletal: Denies back pain or neck pain Integumentary Denies abscess or rash Neurologic Neurologic: Denies headache(s), paresthesias or weakness Psychiatric Psychiatric: Denies anxiety or suicidal thoughts EXAM Physical Exam Const Vital Signs: 01/16/24 16:12 01/16/24 18:12 Temperature 98.6 F 100.1 F H Temperature Source Oral Oral Pulse Rate 80 87 Respiratory Rate 16 18 Blood Pressure 125/72 H 164/77 H Blood Pressure Mean 89 106 Pulse Ox 99 98 Oxygen Delivery Method Room Air Room Air Positive well nourished and well developed General Appearance ED: well developed and NAD HEENT Reports moist mucous membranes normocephalic and atraumatic Eyes PERRL and EOMs intact bilaterally Neck full ROM and supple Resp normal respiratory effort and clear to auscultation bilaterally Cardio regular rate, regular rhythm and no murmurs GI non-distended GI Narrative: Left upper quadrant and right lower quadrant tenderness no guarding or rebound. No distention. Bowel sounds present. No right upper quadrant tenderness/Natarajan's. Auscultation: normoactive bowel sounds Palpation: soft Back/Spine no CVA tenderness General Back: other FROM Extremity normal to inspection General Extremety ED: Negative for edema, pulses abnormal or tenderness General Extremity: Negative for edema or pulses abnormal Neuro oriented x3, CN's II-XII intact bilaterally and no sensory deficits noted Sensorium / Orientation: awake and alert Motor Exam: strength 5/5 throughout Skin no rashes or lesions noted and no wounds MDM MDM MDM Narrative Medical decision making narrative: Patient states he has had about obstruction in the past and he was nauseated had pain similar to this but without any vomiting. He is not tenderness right upper quadrant. I do think is reasonable to obtain a CT. This was done in addition to labs. I reviewed the results. I agree with the CT results and reviewed the images. There is nothing acute Except for inflamed lymph nodes and radiology suggest looking for lymphoproliferative disease which the patient is already aware that he has, CLL. His blood counts are abnormal because of his CLL and his white blood count is lower than it usually is. His renal function is stable. After giving the patient Zofran and morphine he states he feels much better and his pain is completely gone. He gave us a urine sample after urinating in the cup 3 times. He has no urinary symptoms, the urinalysis shows some bacteria positive nitrite, but just trace leukocyte esterase and no pyuria. Given that he has no symptoms, I do not think he needs to be put on antibiotics especially because he is having all of this diarrhea that the antibiotics could make worse, so I think the risk-benefit ratio is such that we should not prescribe him antibiotics empirically right now but I am sending urine for culture. He was not able to give us a diarrhea sample here in emergency department after trying 3 times, states he took Imodium earlier and maybe that really helped his diarrhea. He wants to go home. I think this is fine and I will send him home with a stool collection kit and prescriptions for stool studies. Lab Data Attestation: I reviewed the patient's lab results. Labs: Laboratory Results - last 24 hr 01/16/24 01/16/24 17:21 18:04 WBC 21.5 H RBC 1.92 L Hgb 8.4 L Hct 26.7 L MCV 139.1 H MCH 43.8 H MCHC 31.5 L RDW Std Deviation 73.9 H RDW Coeff of Susan 14.2 Plt Count 395 MPV 9.3 Immature Gran % (Auto) 0.300 Neut % (Auto) 5.4 L Lymph % (Auto) 67.2 H [place] % (Auto) 27.1 H Eos % (Auto) 0.0 Baso % (Auto) 0.0 Absolute Neuts (auto) 1.2 L Absolute Lymphs (auto) 14.46 H Nucleated RBC % 0 Differential Comment SCANNED Diff Path Review May foll Atypical Lymphocytes 1+ Smudge Cells 1+ H Polychromasia RARE Hypochromasia 1+ Anisocytosis 1+ Sodium 138 Potassium 4.1 Chloride 108 H Carbon Dioxide 24.0 Anion Gap 5 BUN 21 H Creatinine 1.53 H Estim Creat Clear Calc 50.42 Est GFR (MDRD) Af Amer 58 L Est GFR (MDRD) Non-Af 48 L BUN/Creatinine Ratio 13.7 Glucose 101 Calcium 8.1 L Total Bilirubin 0.40 AST 16 ALT 13 L Alkaline Phosphatase 94 Total Protein 6.0 L Albumin 3.0 L Globulin 3.0 Albumin/Globulin Ratio 1.0 Lipase 43 Urine Color Yellow Urine Clarity Sl. Cloudy Urine pH 6.5 Ur Specific [place] 1.010 Urine Protein 30 H Urine Glucose (UA) Normal Urine Ketones Negative Urine Occult Blood Negative Urine Nitrite Positive H Urine Bilirubin Negative Urine Urobilinogen 1 H Ur Leukocyte Esterase 25 H Urine RBC 0 SEEN Urine WBC 0-5 SEEN Ur Squamous Epith Cells 0 SEEN Urine Bacteria 2+ Urine Mucus 0 SEEN Radiography Diagnostic Testing: Clinical Impression(s) from Imaging Studies Abdomen/Pelvis CT 01/16/24 16:49 IMPRESSION: No acute findings in the abdomen or pelvis. Mesenteric and right external iliac adenopathy with multiple shotty retroperitoneal lymph nodes. Correlate for possibility of lymphoproliferative disorder. Electronically Signed: Naif Navas MD at 19:15 EDT Reading Location ID and State: [facility] / [place] Tel , Service support , Discharge Plan Triage Chief Complaint: Abd Pain ED Provider: Jerardo Tim Dx/Rx/DC Orders Clinical Impression: Left sided abdominal pain of unknown cause, CKD (chronic kidney disease), stage III, CLL (chronic lymphocytic leukemia), Acute diarrhea Instructions: ED Diarrhea, Unknown Cause Prescriptions: No Action ascorbic acid (vitamin C) 500 mg tablet 500 mg PO DAILY escitalopram oxalate [Lexapro] 5 mg tablet 5 mg PO DAILY Xarelto 20 mg tablet 10 mg PO DAILY Rx Instructions: must administer with evening meal hydroxyurea 500 mg capsule 1,500 mg PO DAILY Rx Instructions: rest on Friday Trelegy Ellipta 100-62.5-25 mcg blister with device 1 inh inhalation Q24H ondansetron HCl 8 mg tablet 8 mg PO Q12H PRN (Reason: nausea and vomiting) albuterol sulfate 90 mcg/actuation HFA aerosol inhaler 1 inh INHALATION Q4H PRN (Reason: shortness of breath or wheezing) omeprazole 40 mg capsule,delayed release(DR/EC) 40 mg PO DAILY Patient Comments: TAKE 1 CAPSULE BY MOUTH ONCE DAILY zolpidem 5 mg tablet 10 mg PO QHS PRN PRN (Reason: sleep) metoprolol tartrate 100 mg tablet 150 mg PO DAILY Repatha SureClick 140 mg/mL pen injector 140 mg SUBCUT QMONTH Patient Comments: INJECT 140 MG SUBCUTANEOUSLY ONCE EVERY MONTH alprazolam 1 mg tablet 1 mg PO PRN magnesium oxide 400 mg (241.3 mg magnesium) tablet 400 mg PO DAILY ergocalciferol (vitamin D2) 1,250 mcg (50,000 unit) capsule 1,250 mcg PO QMONTH calcitriol 0.25 mcg capsule 0.25 mcg PO DAILY diltiazem HCl 180 mg Capsule,Extended Release 24hr 180 mg PO DAILY 30 Days Qty: 30 0RF acetaminophen 500 mg Tablet 1,000 mg PO Q6 Qty: 0 0RF Other Ambulatory Orders: ENTERIC PATHOGEN PANEL STOOL (Routine) Timeframe: 3 Days Facility: [facility] - Location: Laboratory Ordered By: Dr. Jerardo Tim Stool Lactoferrin/WBC (Routine) Timeframe: 3 Days Facility: [facility] - Location: Laboratory Ordered By: Dr. Jerardo Tim CDIFF (PCR) (Routine) Timeframe: 3 Days Facility: [facility] - Location: Laboratory Ordered By: Dr. Jerardo Tim Primary Care Provider: Leighton Orozco Chi Referrals: Leighton Orozco Chi, MD [Primary Care Provider] - 3-5 Days if not improving Activity Restrictions/Additional Instructions: Your urine showed 1 indicator positive for infection but the rest were fairly unremarkable. We are sending a culture, but unlikely you have a urinary infection. If the culture comes back you will receive a phone call from us with instructions on new prescription if needed. With regards to your diarrhea, drink plenty of fluids. If you are able to collect a sample at home, take it to the hospital laboratory, there are orders entered there for tests to be sent to your doctor when they return. Print Language: Mongolian Disposition Disposition: Home, Self Care
[2024-01-16 17:46] LABS: Absolute Lymphocyte Count 14.46 X10^3/uL (0.83-4.51); Absolute Neutrophil Count 1.2 X10^3/uL (2.0-7.7); Basophil# 0.01 X10^3/uL; Hematocrit 26.7 % (40-54); Hemoglobin 8.4 g/dL (13.0-16.5); Lymphocyte # 14.46 X10^3/ul (0.83-4.51); Lymphocyte % 67.2 % (19-41); Mean Corp Hgb Conc 31.5 g/dL (32-36); Mean Corpuscular Hgb 43.8 pg (27.0-32.0); Mean Corpuscular Volume 139.1 fL (80-94); Mean Platelet Vol. 9.3 fl (6.2-12.0); Monocyte# 5.84 X10^3/uL; Monocyte% 27.1 % (0-10); NRBC Flagged by Analyzer 0 % (0-5); Neutrophil # 1.16 X10^3/uL (2.7-7.7); Neutrophil % 5.4 % (47-70); POSITIVE DIFFERENTIAL YES; POSITIVE MORPHOLOGY YES; Platelet Count 395 K/mm3 (150-450); RBC Distribution Width CV 14.2 % (11.6-14.6); RBC Distribution Width SD 73.9 fl (35.1-43.9); Red Blood Count 1.92 M/mm3 (4.6-6.2); White Blood Count 21.5 K/mm3 (4.4-11.0)
[2024-01-16 17:56] LABS: Differential Indicated SCAN CRITERIA MET
[2024-01-16 17:59] LABS: AST(SGOT) 16 U/L (15-37); Alanine Aminotransfer ALT/SGPT 13 U/L (16-61); Alkaline Phosphatase 94 U/L (45-117); Anion Gap 5 (5-15); BUN 21 mg/dL (7-18); BUN/Creat Ratio 13.7 RATIO (10-20); Calcium,Total 8.1 mg/dL (8.5-10.1); Chloride 108 mmol/L (98-107); Creatinine, Serum 1.53 mg/dL (0.70-1.30); EST Glomerular Filtration Rate 48 mL/min (>60); Est Glom Filt Rate - Afr Amer 58 mL/min (>60); Estimated Creatinine Clearance 50.42 ml/min; Glucose 101 mg/dL (74-106); Lipase 43 U/L (13-75); Potassium 4.1 mmol/L (3.5-5.1); Sodium Level 138 mmol/L (136-145)
[2024-01-16 18:09] LABS: Mucous, Urine 0 SEEN /hpf (<or=2+); Red Blood Cells-Urine 0 SEEN /hpf (0-5); Squamous Epithelial Cells - UA 0 SEEN /hpf (0-5)
[2024-01-16 18:12] VITALS: BP 164/77; PULSE 87; RESP 18; TEMP 37.8; O2SAT 98
[2024-01-16 18:14] LABS: Color, Urine Yellow (Yellow); Glucose, Dipstick Normal (Normal); Ketone-Dipstick Negative (Negative); Leukocyte Esterase-Dipstick 25 /ul (Negative); Nitrite-Dipstick Positive (Negative); Occult Blood-Urine Negative /ul (Negative); Protein-Dipstick 30 mg/dl (Negative); Urine Bilirubin Dipstick Negative (Negative); Urine Clarity Sl. Cloudy (Clear); Urine Urobilinogen 1 mg/dl (Normal); Urine pH 6.5 (5.0 - 8.0)
[2024-01-16 18:18] LABS: Atypical Lymphocyte 1+ %; Differential Comment SCANNED
[2024-01-16 18:19] LABS: Smudge Cells 1+
[2024-01-16 18:20] LABS: Anisocytosis 1+; Hypochromasia 1+; Polychromasia RARE
[2024-01-16 18:26] LABS: Bacteria 2+ /hpf (None Seen); White Blood Cells 0-5 SEEN /hpf (0-5)
[2024-01-16] MEDS: Acetaminophen 500 MG Tablet 1000 MG PO (20:29)
[2024-01-16 20:55] VITALS: BP 133/82; PULSE 81; RESP 16; TEMP 37.2; O2SAT 99
[2024-01-19 13:55] LABS: Pathologist Review Reviewed
== END 2024-01-16 20:56 | disposition home or self-care (01) ==
PROVIDERS: Emergency Provider Emergency Medicine; PCP Family Medicine Geriatric Medicine; Visit Provider Emergency Medicine
DX: R10.12 Left upper quadrant pain (principal); C91.10 Chronic lymphocytic leukemia of B-cell type not having achieved remission; J43.9 Emphysema, unspecified; N18.30 Chronic kidney disease, stage 3 unspecified; E78.5 Hyperlipidemia, unspecified; R19.7 Diarrhea, unspecified; I25.10 Atherosclerotic heart disease of native coronary artery without angina pectoris; Z79.01 Long term (current) use of anticoagulants; Z79.899 Other long term (current) drug therapy; Z87.891 Personal history of nicotine dependence; Z79.51 Long term (current) use of inhaled steroids; Z95.5 Presence of coronary angioplasty implant and graft
CPT/HCPCS: 74177; 80053; 81001; 83690; 85025; 87077; 87086; 87088; 87186; 99283; Q9967; A4216; J2405

== ENCOUNTER → 2024-01-17 | Outpatient (CLI) | payer MEDICARE, OTHER, SELFPAY | END | disposition home or self-care (01) | LOC: LABSPEC 11:54 | PROVIDERS: PCP Family Medicine Geriatric Medicine; Referring Provider Emergency Medicine; Visit Provider Emergency Medicine | DX: R19.7 Diarrhea, unspecified (principal) | CPT/HCPCS: 83630; 87070; 87205; 87493 ==

== ENCOUNTER → 2024-01-22 | Outpatient (CLI) | payer MEDICARE, OTHER, SELFPAY ==
[2024-01-22 17:43] LABS: Hematocrit 26.6 % (40-54); Hemoglobin 8.9 g/dL (13.0-16.5); Mean Corp Hgb Conc 33.5 g/dL (32-36); Mean Corpuscular Hgb 44.9 pg (27.0-32.0); Mean Corpuscular Volume 134.3 fL (80-94); Mean Platelet Vol. 9.4 fl (6.2-12.0); POSITIVE DIFFERENTIAL YES; POSITIVE MORPHOLOGY YES; Platelet Count 443 K/mm3 (150-450); RBC Distribution Width CV 14.3 % (11.6-14.6); Red Blood Count 1.98 M/mm3 (4.6-6.2); White Blood Count 22.2 K/mm3 (4.4-11.0)
[2024-01-22 17:49] LABS: International Normalized Ratio 1.8; Prothrombin Time (Protime)PT. 20.5 SECONDS (11.7-14.9)
[2024-01-22 17:50] LABS: Partial Thromboplast Time 38.2 Seconds (24.1-36.2)
[2024-01-22 18:09] LABS: ALB/GLOB Ratio 0.9 RATIO (0.9-2.4); AST(SGOT) 16 U/L (15-37); Alanine Aminotransfer ALT/SGPT 17 U/L (16-61); Albumin, Serum 3.2 g/dL (3.2-5.0); Alkaline Phosphatase 106 U/L (45-117); Anion Gap 10 (5-15); BUN 24 mg/dL (7-18); BUN/Creat Ratio 11.9 RATIO (10-20); Chloride 104 mmol/L (98-107); Creatinine, Serum 2.01 mg/dL (0.70-1.30); EST Glomerular Filtration Rate 35 mL/min (>60); Est Glom Filt Rate - Afr Amer 42 mL/min (>60); Globulin 3.7 g/dL (2.2-4.2); Glucose 108 mg/dL (74-106); Magnesium 1.5 mg/dL (1.6-2.6); Potassium 4.2 mmol/L (3.5-5.1); Protein, Total 6.9 g/dL (6.4-8.2); Sodium Level 136 mmol/L (136-145)
[2024-01-22 18:14] LABS: Differential Indicated MANUAL DIFF
[2024-01-22 18:21] LABS: Lymphocyte 88 % (19-41); Neutrophil-Segmented 12 % (47-70); Total Cells Counted 100 (MANUAL DIFF)
[2024-01-22 18:22] LABS: Atypical Lymphocyte 3+ %
[2024-01-22 18:25] LABS: Platelet Estimate SLT INC (ADEQ); Platelet Morphology LARGE
[2024-01-22 18:26] LABS: Anisocytosis 1+; Polychromasia RARE
[2024-01-22 18:30] LABS: Smudge Cells 1+
[2024-01-22 18:31] LABS: Absolute Neutrophil Count 2.7 X10^3/uL (2.0-7.7)
[2024-01-23 13:18] LABS: Pathologist Review Reviewed
== END | disposition home or self-care (01) ==
LOC: POLAB3 16:34
PROVIDERS: Anesthesiology; PCP Family Medicine Geriatric Medicine; Visit Provider Family Medicine Geriatric Medicine
DX: Z01.818 Encounter for other preprocedural examination (principal); I10 Essential (primary) hypertension; R53.83 Other fatigue; E83.42 Hypomagnesemia
CPT/HCPCS: 36415; 80053; 83735; 85025; 85610; 85730; 86850; 86900; 86901

== ENCOUNTER 2024-02-03 11:43 | Inpatient (IN) | payer MEDICARE, OTHER, SELFPAY ==
[2024-02-03] VITALS (25 sets, daily range): BP systolic 107–139; BP diastolic 54–87; PULSE 77–104; RESP 14–25; TEMP 36.4–37.1; O2SAT 89–98; BMI 26.5; BMI 26.6
--- NOTE | 2024-02-03 | PLAQ_PTH ---
PATHOLOGY RESULTS PATIENT: ADINA DAVID LOC: [facility] U#:[id number] AGE/SX: 68/M ROOM: [place] [address] RE02/03/[address]: Dr. Quentin Boyer MD : [id number] BED: 1 DIS: 02/06/2024 SPEC #: [id number] RECD: 02/03/24 13:16 STATUS: KEELY RECindy #: [id number] PEDRO: 02/03/24 00:[address]: Quentin Boyer DEPT: SURGICAL PATHOLOGY RECD BY: Taye Jesus ENTERED: 02/03/24 13:16 SP TYPE: PLAQUE OTHR DR: Dr. Leighton Orozco MD Tissues: PLAQUE Procedures: Decalcification bone/plaque Surgery Specimen Level III HEADER OPERATION: Right femoral endarterectomy sartorious flap PRE-OP DIAGNOSIS: Peripheral arterial occlusive disease TISSUE SUBMITTED: Right femoral artery plaque MICROSCOPIC DIAGNOSIS Right femoral artery plaque, endarterectomy: Atherosclerotic tissue with moderate to marked calcifications (plaque). 02/05/2024 GROSS DESCRIPTION Received in fixative is one container labeled with the patient's name and designated Right femoral artery plaque. The specimen consists of a tubular piece of price indurated yellow-white tissue measuring 6.0cm in length and up to 1.0cm in diameter. The specimen cuts with a gritty sensation. Lumen is almost completely blocked focally. Also present in the container is a detached piece of price indurated tissue measuring in aggregate 2.0 x 1.0 x 0.2cm. [facility] Consultant sections are submitted in one cassette after decalcification. DAVID 02/03/2024 TC:5 CPT:60463,07567
--- OUTSIDE RECORDS SUMMARY | 2024-02-03 05:47 | XMS RPT_ITS | CCD ---
Author Organization [facility] Care Team Providers Care Policy Service Coordinator Name Role Phone Efe Suarez Unavailable Unavailable Sandi Dutton Unavailable Unavailable Sandi Dutton Unavailable Unavailable Ulises Ramos DO Primary Care Provider [phone] Wilton CARVER, Louie Beltre Unavailable Unavailabl Ulises Morgan DO Primary Care Provider [phone] Louie Silva RN Unavailable Unavailabl Ulises Morgan DO Primary Care Provider [phone] Wilton CARVER, Louie Beltre Unavailable UnavailDr. Aleja Weaver Primary Care JAKOB Conway Attending Unavailable Segundo CARVER, Yuko Unavailable Unavailable Louie CARVER, Wilton Beltre Unavailable UnavailUlises Garcia DO Primary Care Provider [phone] Louie CARVER, Wilton Beltre Unavailable Unavailmarbin Raymond RN, Yuko Unavailable Unavailable Louie CARVER, Wilton Beltre Unavailable Unavailmarbin Dale MD, Halle Unavailable Maddie White RN Unavailable Unavailable Chito COLINDRES, Halle Unavailable Chito COLINDRES, Fanchantelle Unavailable Aleja Uribe MD Primary Care Provider MELINDA KRAFT Attending ALEJA Gonzalez Primary Care Unavailable ULISES RAMOS DO Primary Care Physician SANDI DUTTON Primary Care Unavailable ULISES RAMOS DO Primary Care Unavailable TRISHA COLINDRES, DR SAM Wang Attending Jeramy JOHNSON MD, DR PEREYRA Attending Unavailab ULISES Duvall DO Primary Care Unavailable Ulises Ramos DO Primary Care Provider [phone] SERENE DO~[id number], SERENE JUSTIN Atten ding Unavailable SAV COLINDRES, АНДРЕЙ Haro Consulting Unavailable MON DO, ARY Hernandez Procedure Practitioner Vita vailable MON DO~[id number], ELIESER Hernandez Admittin g Unavailable ULISES RAMOS Primary Care Unavailable SAV COLINDRES, АНДРЕЙ Haro Consulting Unavailable ZAHIDA COLINDRES, АНДРЕЙ Haro Consulting Unavailmarbin TEAGUE MD, АНДРЕЙ Haro Consulting Unavailmarbin e ALBANIA COLINDRES, NALDO Beltre Consulting Unavailable ALBANIA COLINDRES, NALDO Beltre Consulting Unavailable JAYDEN COLINDRES, ERNIE Consulting Unavailable JAYDEN COLINDRES, ERNIE Consulting Unavailable ULISES RAMOS Primary Care Unavailable ROBERT COLINDRES~[id number], ROBERT cannon Unavailable ROBERT COLINDRES~[id number], ROBERT horowitz Unavailable ULISES RAMOS Primary Care Unavailable ALBANIA COLINDRES~[id number], ALB[place]IA lockhart Unavailable [place]IA COLINDRES~[id number], [place]IA Beltre Attendin g Unavailable ULISES RAMOS Primary Care Unavailable LE DO~[id number], RAUDEL ARIZMENDI Admitting Jeramy moore LE DO~[id number], RAUDEL ARIZMENDI Attending Sandi Enamorado MD Primary Care Provider Richard SIERRA, Ulises Aguayo Primary Care Provider [phone] Louie CARVER, Wilton Beltre Unavailable Unavailmarbin Orozco, Leighton Fred Primary Care Provider HORTENCIA GALLARDO Attending Unavailable HORTENCIA GALLARDO Referring Unavailable ULISES RAMOS Primary Care Unavailable NAKUL GALLEGOS Attending Unavail able ULISES RAMOS Referring Unavailable ULISES RAMOS Primary Care Unavailable ULISES RAMOS Referring Unavailable ULISES RAMOS Primary Care Unavailable ULISES RAMOS Referring Unavailable ULISES RAMOS Primary Care Unavailable ULISES RAMOS Referring Unavailable ULISES RAMOS Primary Care Unavailable ULISES RAMOS Referring Unavailable ULISES RAMOS Primary Care Unavailable PANTERA STEINER Attending Unavailable ULISES RAMOS Referring Unavailable ULISES RAMOS Primary Care Unavailable ULISES RAMOS Referring Unavailable ULISES RAMOS Primary Care Unavailable ULISES RAMOS Referring Unavailable ULISES RAMOS OLIVIER Primary Care Unavailable ERNESTO, LEIGHTON CHI Primary Care Unavailable ULISES RAMOS Referring Unavailable PANTERA STEINER Attending Unavailable RICHARD, ULISES AGUAYO Referring Unavailable RICHARD, ULISES AGUAYO Primary Care Unavailable RICHARD, ULISES AGUAYO Referring Unavailable RICHARD, ULISES AGUAYO Primary Care Unavailable ERNESTO, LEIGHTON CHI Primary Care Unavailable ULISES RAMOS Referring Unavailable RICHARD, ULISES AGUAYO Referring Unavailable RICHARD, ULISES AGUAYO Primary Care Unavailable ULISES RAMOS Referring Unavailable RICHARD, ULISES AGUAYO Primary Care Unavailable ULISES RAMOS Referring Unavailable RICHARD, ULISES AGUAYO Primary Care Unavailable PANTERA STEINER Attending Unavailable RICHARD, ULISES AGUAYO Referring Unavailable RICHARD, ULISES AGUAYO Primary Care Unavailable LEISTER, PANTERA Attending Unavailable RICHARD, ULISES AGUAYO Referring Unavailable RICHARD, ULISES AGUAYO Primary Care Unavailable Allergies Allergy Classification Reported Allergen(s) Allergy Type Date of Onset Reaction(s) Facility (20 sources) Penicillin; Translations: [penicillin] Drug Allergy 7 Hives [facility] (20 sources) Doxycycline; Translations: [doxycycline] Drug Allergy 2 Intolerance, Other [facility] Work Phone: (20 sources) Penicillin V; Translations: [PENICILLIN V POTASSIUM] Drug Allergy 2 Other: See Comments [facility] (3 sources) levoFLOXacin; Translations: [LEVOFLOXACIN] Drug Allergy 3 Unknown [facility] Work Phone: (2 sources) Penicillins; Translations: [PENICILLINS] Drug Allergy 3 Unknown [facility] Work Phone: (1 source) Doxycycline Drug Allergy [facility] (1 source) Penicillins Drug Allergy 6 Hives, Other, Unknown [facility] Medications Current Medications Medication Drug Class(es) Dates Sig (Normalized) Sig (Original) acetaminophen 325 mg / HYDROcodone bitartrate 5 mg oral tablet (1 source) Opioid Agonist Start: 05-05-2023 End: 05-10-2023 take 1 tablet by mouth every six hours [place] 325- 5 mg oral tablet Dose = 1 tab(s), Oral, q6h, X 5 day(s), # 20 tab(s), 0 Refill(s), Fracture of transverse process of lumbar vertebra, 90.9 Start Date: 05/05/23 Stop Date: 05/10/23 Status: Ordered acetaminophen 325 mg / oxyCODONE hydrochloride 5 mg oral tablet (18 sources) Opioid Agonist Start: 01-21-2022 End: 03-27-2022 take 1 tablet by mouth every six hours as needed oxyCODONE-acetamin ophen (PERCOCET) 5-325 mg tablet Take 1 tablet by mouth every 6 hours as needed. 0 01/21/2022 03/27/2022 Discontinued (Course of therapy completed) Comment on above: Take 1 tablet by bear every 6 hours as needed. [id number] 200 actuat albuterol 0.09 mg/actuat metered dose inhaler (20 sources) beta2-Adrenergic Agonist Start: 07-22-2022 take 1 puff(s) by inhalation three times daily albuterol 90 mcg/actuation inhaler Inhale 1 puff 3 times a day. 0 07/22/2022 Active Start: 06-10-2022 End: 07-22-2022 take 1-2 puff(s) by mouth every six hours as needed for wheezing albuterol HFA (PROVENTIL HFA, VENTOLIN HFA) 90 mcg/actuation inhaler Indications: Wheeze INHALE 1 TO 2 PUFFS BY MOUTH EVERY 6 HOURS NEEDED FOR WHEEZING 9 g 0 07/22/2022 Active Start: 04-17-2022 End: 06-10-2022 take 2 puff(s) by inhalation every six hours as needed for wheezing albuterol HFA (PROAIR HFA) 90 mcg/actuation inhaler Indications: Wheeze Inhale 2 Puffs as instructed every 6 hours as needed for wheezing/shortness of breath. 8.5 g 0 04/17/2022 06/10/2022 Discontinued Start: 02-28-2021 End: 03-27-2022 take 1-2 puff(s) by inhalation every six hours as needed for wheezing albuterol HFA (PROVENTIL HFA, VENTOLIN HFA) 90 mcg/actuation inhaler INHALE 1-2 PUFFS EVERY 6 HOURS NEEDED FOR WHEEZING 8.5 g 11 02/28/2021 03/27/2022 Discontinued (Course of therapy completed) take 2 puff(s) by mo uth every four hours albuterol 108 (90 Base) MCG/ACT inhaler INHALE 2 PUFFS BY MOUTH EVERY 4 HOURS Active Comment on above: INHALE 1-2 PUFFS AUSTEN RY 6 HOURS NEEDED FOR WHEEZING Inhale 2 Puffs as in structed every 6 hours as needed for wheezing/shortness of breath. INHALE 1 TO 2 PUFFS BY MOUTH EVERY 6 HOURS NEEDED FOR WHEEZING allopurinol 100 mg oral tablet (1 source) Xanthine Oxidase Inhibitor Start: 08-02-19 take 1 tablet by mouth once daily allopurinol (Zyloprim) 100 mg tablet Take 1 tablet (100 mg) by mouth once daily. 0 08/01/2022 Active amLODIPine 5 mg oral tablet (20 sources) Dihydropyridine Calcium Channel Freda Start: 05-05-19 amLODIPine 5 mg oral tablet 0 Refill(s) Start Date: 05/05/23 Status: Ordered Start: 03-28-2022 [facility] amLOD[facility]ine (NORVASC) 10 mg tablet Take 1 tablet by mouth once daily. 90 tablet 3 03/28/2022 Active Start: 09-05-2020 End: 09-12-2021 take 1 tablet by mouth once daily amLODIPine (NORVASC) 10 mg tablet Take 1 tablet by mouth once daily. 90 tablet 3 09/05/2020 09/12/2021 Discontinued Comment on above: Take 1 tablet by [facility] once daily. atropine sulfate 0.025 mg / diphenoxylate hydrochloride 2.5 mg oral tablet (18 sources) Anticholinergic, Cholinergic Muscarinic Antagonist, Antidiarrheal Start: End: take 1 tablet by mouth every six hours as needed for diarrhea and diarrhea diphenoxylate-atropin e (LOMOTIL) 2.5-0.025 mg per tablet Indications: Diarrhea, unspecified type Take 1 tablet by mouth four times daily as needed for up to 5 days. 20 tablet 0 12/20/2021 03/27/2022 Discontinued (Course of therapy completed) Comment on above: Take 1 tablet by bear four times daily as needed for up to 5 days. azithromycin 250 mg oral tablet (2 sources) Macrolide Antimicrobial Start: azithromycin (Zithromax Z-Mario) 250 MG tablet Indications: Other non-recurrent acute nonsuppurative otitis media of right ear Take 500 mg on day 1. Take 250 mg on days 2 through 5. Take as directed 6 tablet 10/17/2023 Active Start: 05-05-2023 azithromycin 2 50 mg oral tablet 0 Refill(s), 90.9 Start Date: 05/05/23 Status: Ordered baclofen 10 mg oral tablet (20 sources) gamma-Aminobutyric Acid-ergic Agonist Start: 12-03-2021 End: 03-27-2022 take 1 tablet by mouth every eight hours as needed baclofen (LIORESAL) 10 mg tablet Take 1 tablet by mouth three times daily as needed. 90 tablet 2 12/03/2021 03/27/2022 Discontinued (Course of therapy completed) Comment on above: Take 1 tablet by mouth three times daily as needed. calcitriol 0.45651 mg oral capsule (20 sources) Vitamin D3 Analog Start: 05-05-2023 calcitriol 0.25 mcg oral capsule 0 Refill(s) Start Date: 05/05/23 Status: Ordered Start: 01-11-2023 calcitriol (Ro caltrol) 0.25 mcg capsule 1 capsule (0.25 mcg) 3 times a week. 0 01/11/2023 Active Start: 01-18-2021 take 1 capsule by mo [facility] once daily calcitriol (ROCALTROL) 0.25 mcg capsule Take 0.25 mcg by mouth once daily. 0 01/18/2021 Suspended Comment on above: Take 0.25 mcg by bear once daily. cefdinir 300 mg oral capsule (1 source) Cephalosporin Antibacterial Start: 05-05-19 cefdinir 300 mg oral capsule 0 Refill(s), 90.9 Start Date: 05/05/23 Status: Ordered clarithromycin 500 mg oral tablet (9 sources) Macrolide Antimicrobial Start: 06-05-19 End: 06-16-19 take 1 tablet by mouth every twelve hours clarithromycin (BIAXIN) 500 mg Take 1 tablet by mouth every 12 hours for 10 days. 20 tablet 0 06/05/2022 06/15/2022 Active Start: 05-06-2022 End: 05-16-2022 take 1 tablet by mouth every twelve hours clarithromycin (BIAXIN) 500 mg Take 1 tablet by mouth every 12 hours for 10 days. 20 tablet 0 05/06/2022 05/16/2022 Active Comment on above: Take 1 tablet by bear th every 12 hours for 10 days. codeine phosphate 2 mg/ml / guaiFENesin 20 mg/ml oral solution (1 source) Opioid Agonist Start: 05-05-2023 codeine-guaifenesin 10 mg-100 mg/5 mL oral syrup 0 Refill(s), 90.9 Start Date: 05/05/23 Status: Ordered CPAP (20 sources) CPAP Active CPAP 0.4 ml enoxaparin sodium 100 mg/ml prefilled syringe (20 sources) Low Molecular Weight Heparin Start: 12-11-2022 End: 02-20-2023 inject 40 mg by subcutaneous injection every twenty-four hours enoxaparin (LOVENOX) 40 mg/0.4 mL Inject 0.4 mL subcutaneously every 24 hours. 12 mL 12/11/2022 Active Comment on above: Inject 0.4 mL subcut aneously every 24 hours. ergocalciferol 1.25 mg oral capsule (20 sources) Provitamin D2 Compound Start: 02-12-2023 ergocalciferol (Vitamin D-2) 1.25 MG (05924 UT) capsule Start: 09-14-2020 ergocalciferol 50,000 unit capsule (VITAMIN D2, DRISDOL) once every month. 09/14/2020 Active End: 02-20-2023 ergocalciferol (Vitamin D-2) 50 MCG (2000 UT) capsule capsule Comment on above: once every month. escitalopram 5 mg oral tablet (3 sources) Serotonin Reuptake Inhibitor Start: 05-05-2023 escitalopram 5 mg oral tablet 0 Refill(s) Start Date: 05/05/23 Status: Ordered Start: 01-10-2023 take 1 tablet by bear th once daily escitalopram (Lexapro) 5 mg tablet Take 1 tablet (5 mg) by mouth once daily. 0 01/10/2023 Active 1 ml evolocumab 140 mg/ml auto-injector (20 sources) PCSK9 Inhibitor Start: 07-18-2023 End: 11-23-2023 inject 1 dose by subcutaneous injection every month REPATHA SURECLICK 140 mg/mL pen injector INJECT 1 DOSE SUBCUTANEOUSLY ONCE EVERY MONTH 2 mL 11/23/2023 Active Start: 07-15-2022 End: 07-18-2023 inject 140 mg by subcutaneous injection every other week evolocumab (REPATHA SURECLICK) 140 mg/mL pen injector Inject 140 mg subcutaneously every 2 weeks. 4 Each 5 07/15/2022 07/18/2023 Discontinued Start: 07-11-2022 End: 07-15-2022 inject 1 mL by subcutaneous injection once evolocumab (Repatha SureClick) 140 mg/mL injection Inject 1 mL (140 mg) under the skin every 14 (fourteen) days. 0 07/11/2022 Active Start: 04-10-2022 End: 07-11-2022 inject 1 mL by subcutaneous injection every other week REPATHA SURECLICK 140 mg/mL pen injector Indications: NSTEMI (non-ST elevated myocardial infarction) (HCC) INJECT 1 PEN SUBCUTANEOUSLY EVERY TWO WEEKS 2 mL 11 04/10/2022 07/11/2022 Discontinued Start: 04-03-2021 evolocumab (RE PATHA SURECLICK) 140 mg/mL pen injector Indications: NSTEMI (non-ST elevated myocardial infarction) (HCC) Inject 1 pen (140 mg) subcutaneously every 2 weeks. 2 Pen 11 04/03/2021 Active inject 140 mg by sub cutaneous injection every month evolocumab (Repatha) 140 MG/ML injection in leg Subcutaneous once a month Active Comment on above: Inject 1 pen (140 mg ) subcutaneously every 2 weeks. INJECT 1 PEN SUBCUTA NEOUSLY EVERY TWO WEEKS Inject 140 mg subcut aneously once every month. Inject 140 mg subcut aneously every 2 weeks. INJECT 140 MG SUBCUT ANEOUSLY ONCE EVERY MONTH ferrous sulfate 75 mg/ml oral solution (1 source) ferrous sulfate, as mg of FE, ([place]-In-Marianela) 75 (15 Fe) MG/ML drops Take 15 mg by mouth daily. Active fluticasone propionate 0.05 mg/actuat metered dose nasal spray (20 sources) Corticosteroid Start: 05-05-2023 fluticasone proprionate NASAL 50 mcg/ spray 0 Refill(s) Start Date: 05/05/23 Status: Ordered Start: 10-02-2022 take 1 spray(s) nasa l route twice daily fluticasone (Flonase) 50 MCG/ACT nasal spray 1 sprays Nasally Two times per day for 30 days 10/02/2022 Active Start: 10-02-2022 take 1 spray(s) nasa l route once daily fluticasone (Flonase) 50 mcg/actuation nasal spray Administer 1 spray into each nostril once daily. 0 10/02/2022 Active End: 02-20-2023 take 2 spray(s) nasal route once daily fluticasone (Veramyst) 27.5 mcg/actuation nasal spray Administer 2 sprays into each nostril once daily. 0 02/20/2023 Discontinued (Med List Cleanup) Comment on above: Use 2 Sprays in each nostril once daily. 30 actuat fluticasone furoate 0.1 mg/actuat / umeclidinium 0.0625 mg/actuat / vilanterol 0.025 mg/actuat dry powder inhaler (20 sources) Anticholinergic, Corticosteroid, beta2-Adrenergic Agonist Start: 023 take 1 puff(s) by inhalation once daily fluticasone-umeclidin -vilanter (TRELEGY ELLIPTA) 100-62.5-25 mcg inhalation powder Inhale 1 Puff as instructed once daily. 30 Each 1 12/11/2022 Active Comment on above: Inhale 1 Puff as ins tructed once daily. hydroxyurea 500 mg oral capsule (20 sources) Antimetabolite Start: 023 take 2 capsules by mouth once daily hydroxyurea (HYDREA) 500 mg capsule Indications: Essential thrombocythemia (HCC) Take 2 capsules by mouth once daily. 60 capsule 12/11/2022 Active Start: 10-28-2022 End: 11-22-2022 take 2 capsules by mouth once daily hydroxyurea (HYDREA) 500 mg capsule Indications: Essential thrombocythemia (HCC) Take 2 capsules by mouth once daily 60 capsule 0 11/22/2022 Suspended Start: 09-23-2022 take 2 capsules by m outh once daily hydroxyurea (HYDREA) 500 mg capsule Indications: Essential thrombocythemia (HCC) Take 2 capsules by mouth once daily 60 capsule 0 09/23/2022 Active Start: 06-21-2022 End: 09-19-2022 take 2 capsules by mouth once daily, then take 2 capsules by mouth once daily hydroxyurea (HYDREA) 500 mg capsule Indications: Essential thrombocythemia (HCC) Take 2 capsules by mouth once daily. 2 tablets once daily 60 capsule 2 06/21/2022 09/19/2022 Active Start: 03-22-2022 End: 06-21-2022 take 1 capsule by mouth twice daily hydroxyurea (HYDREA) 500 mg capsule Indications: Essential thrombocythemia (HCC) Take 1 capsule by mouth twice daily. 60 capsule 2 03/22/2022 06/21/2022 Discontinued Start: 03-18-2022 End: 09-14-2022 take 1 capsule by mouth once daily hydroxyurea (HYDREA) 500 mg capsule Indications: Essential thrombocythemia (HCC) Take 1 capsule by mouth once daily. 90 capsule 1 03/18/2022 03/22/2022 Discontinued Start: 06-20-2021 End: 01-24-2022 take 3 capsules by mouth once daily hydroxyurea (HYDREA) 500 mg capsule Indications: Essential thrombocythemia (HCC) TAKE 3 CAPSULES BY MOUTH ONCE DAILY 180 capsule 0 2021 Active Comment on above: Take 3 capsules by m outh once daily. TAKE 3 CAPSULES BY M OUTH ONCE DAILY Take 1 capsule by mo uth once daily. Take 1 capsule by mo uth twice daily. Take 2 capsules by m outh once daily. 2 tablets once daily Take 2 capsules by m outh once daily Take 2 capsules by m outh once daily. krill oil 1000 mg oral capsule (1 source) Krill Oil 1000 M G capsule Take by mouth daily. Active levoFLOXacin 500 mg oral tablet (5 sources) Quinolone Antimicrobial Start: 07-03-19 End: 07-13-19 take 1 tablet by mouth once daily levoFLOXacin (LEVAQUIN) 500 mg tablet Take 1 tablet by mouth once daily for 10 days. 10 tablet 0 07/02/2022 07/12/2022 Active Comment on above: Take 1 tablet by bear th once daily for 10 days. magnesium oxide 400 mg oral tablet (20 sources) Start: 04-18-19 End: 05-15-19 magnesium oxide (MAG-OX) 400 mg (241.3 mg magnesium) tablet Take 0.5 tablets by mouth once daily. 0.5 tablet 90 tablet 3 05/15/2022 Active Comment on above: Take 1 tablet by bear th once daily Take 0.5 tablets by mouth once daily. 0.5 tablet metoprolol tartrate 100 mg oral tablet (20 sources) beta-Adrenergic Freda Start: 05-05-19 Metoprolol Tartrate 100 mg oral tablet 0 Refill(s) Start Date: 05/05/23 Status: Ordered Start: 01-22-2023 take 1.5 tablets by mouth twice daily metoprolol tartrate (Lopressor) 100 MG tablet Take 1.5 tablets twice a day by oral route. 01/22/2023 Active Start: 01-22-2023 take 1 tablet by bear th twice daily metoprolol tartrate (Lopressor) 100 mg tablet Take 1 tablet (100 mg) by mouth 2 times a day. 0 01/22/2023 Active Start: 12-11-2022 metoprolol tar trate, short acting, (LOPRESSOR) 25 mg tablet Take half a tablet by mouth twice daily. 30 tablet 1 12/11/2022 Active Start: 12-11-2022 metoprolol tar trate (Lopressor) 25 MG tablet Take 12.5 mg by mouth in the morning and 12.5 mg in the evening. 12/11/2022 Active Start: 12-11-2022 End: 02-20-2023 take 0.5 tablet by mouth twice daily metoprolol tartrate (Lopressor) 25 mg tablet Take 0.5 tablets (12.5 mg) by mouth twice a day. 0 12/11/2022 02/20/2023 Discontinued (Med List Cleanup) Start: 09-19-2022 End: 02-20-2023 take 1 tablet by mouth twice daily metoprolol tartrate (Lopressor) 50 mg tablet Take 1 tablet by mouth 2 times a day. 0 09/19/2022 02/20/2023 Discontinued (Med List Cleanup) Start: 11-21-2020 End: 11-27-2021 take 1 tablet by mouth twice daily metoprolol tartrate, short acting, (LOPRESSOR) 50 mg tablet Take 1 tablet by mouth twice daily 180 tablet 3 11/27/2021 Suspended Comment on above: Take 1 tablet by bear th twice daily Take half a tablet b y mouth twice daily. modafinil 200 mg oral tablet (11 sources) Sympathomimetic-like Agent Start: 11-22-19 End: 12-22-19 take 1 tablet by mouth once daily modafinil (PROVIGIL) 200 mg tablet Indications: sleepiness due to obstructive sleep apnea Take 1 tablet by mouth once daily for 30 days. 30 tablet 0 11/21/2022 12/21/2022 Active Comment on above: Take 1 tablet by [facility] once daily for 30 days. Take 200 mg by mouth once daily. mupirocin 0.02 mg/mg topical ointment (1 source) RNA Synthetase Inhibitor Antibacterial Start: 09-21-19 mupirocin (Bactroban) 2 % ointment Apply topically once daily. 0 09/20/2022 Active octreotide 20 mg injection (20 sources) Somatostatin Analog Start: 04-04-20 End: 04-11-20 octreotide LAR 20 mg depot (monthly) injection (SandoSTATIN LAR) Comment on above: Inject 20 mg intramu scularly once every month. omeprazole 40 mg delayed release oral capsule (20 sources) Proton Pump Inhibitor Start: 08-02-19 End: 10-18-19 take 1 capsule by mouth once daily omeprazole (PRILOSEC) 40 mg capsule Take 1 capsule by mouth once daily 90 capsule 3 10/17/2022 Active Start: 01-29-2021 End: 08-01-2021 take 1 capsule by mouth twice daily omeprazole (PRILOSEC) 20 mg capsule Take 1 capsule by mouth twice daily 60 capsule 0 07/26/2021 08/01/2021 Discontinued take 1 capsule by [facility] once daily omeprazole (PriLOSEC) [address] capsule Take 20 mg by mouth daily. Active Comment on above: Take 1 capsule by [facility] twice daily Take 1 capsule by [facility] once daily. Take 1 capsule by [facility] once daily polyethylene glycol 3350 932014 mg / potassium chloride 2970 mg / sodium bicarbonate 6740 mg / sodium chloride 5860 mg / sodium sulfate 77590 mg powder for oral solution (18 sources) Osmotic Laxative Start: 11-28-19 End: 03-27-20 GAVILYTE-G 236-22.74-6.74 -5.86 gram suspension rivaroxaban 10 mg oral tablet (1 source) Factor Xa Inhibitor take 1 tablet by mouth once daily rivaroxaban (Xarelto) 10 MG tablet Take 1 tablet by mouth daily. Active sodium bicarbonate 650 mg oral tablet (20 sources) Start: 12-12-19 End: 02-21-20 take 1 tablet by mouth twice daily sodium bicarbonate 650 mg tablet Take 1 tablet by mouth twice daily. 60 tablet 1 12/11/2022 Active Comment on above: Take 1 tablet by bear twice daily. sulfamethoxazole 800 mg / trimethoprim 160 mg oral tablet (8 sources) Dihydrofolate Reductase Inhibitor Antibacterial, Sulfonamide Antimicrobial Start: 09-06-19 End: 09-23-19 take 1 tablet by mouth twice daily sulfamethoxazole-tr imethoprim (BACTRIM DS) 800-160 mg per tablet Take 1 tablet by mouth twice daily for 10 days. 20 tablet 0 09/12/2021 09/22/2021 Active Comment on above: Take 1 tablet by bear twice daily for 10 days. Trelegy Ellipta 200-62.5-25 mcg blister with device (1 source) Start: 01-12-20 Trelegy Ellipta 200-62.5-25 mcg blister with device valACYclovir 1000 mg oral tablet (20 sources) Herpesvirus Nucleoside Analog DNA Polymerase Inhibitor, Herpes Simplex Virus Nucleoside Analog DNA Polymerase Inhibitor, Herpes Zoster Virus Nucleoside Analog DNA Polymerase Inhibitor Start: 10-19-19 take 1 tablet by mouth twice daily as needed valACYclovir (Valtrex) 1 gram tablet Take 1 tablet (1,000 mg) by mouth 2 times a day. FOR 3 DAYS NEEDED FOR COLD SORES 0 10/18/2022 Active Start: 05-22-2021 End: 10-22-2021 take 1 tablet by mouth twice daily as needed valACYclovir (VALTREX) 1 gram One po bid for 3 days as needed for cold sores 30 tablet 11 10/22/2021 Suspended Comment on above: One po bid for 3 day s as needed for cold sores zolpidem tartrate 10 mg oral tablet (20 sources) gamma-Aminobutyric Acid-ergic Agonist Start: 01-24-2023 zolpidem 10 mg oral tablet 0 Refill(s), 90.9 Start Date: 05/05/23 Status: Ordered Start: 07-01-2022 End: 02-20-2023 take 1 tablet by mouth at bedtime as needed zolpidem (AMBIEN) 5 mg tablet Indications: Other insomnia , Renal cancer, right (HCC) , CLL (chronic lymphocytic leukemia) (HCC) Take 1 tablet by mouth at bedtime as needed for up to 90 days. 30 tablet 2 10/17/2022 Active Start: 03-04-2022 End: 06-21-2022 take 1 tablet by mouth every 30 days at bedtime as needed zolpidem (AMBIEN) 5 mg tablet Indications: Other insomnia , Renal cancer, right (HCC) , CLL (chronic lymphocytic leukemia) (HCC) Take 1 tablet by mouth at bedtime as needed for up to 30 days. 30 tablet 0 05/22/2022 Active Start: 09-19-2021 End: 01-17-2022 take 1 tablet by mouth every 30 days at bedtime as needed zolpidem (AMBIEN) 5 mg tablet Indications: Other insomnia , Renal cancer, right (HCC) , CLL (chronic lymphocytic leukemia) (HCC) TAKE 1 TABLET BY MOUTH AT BEDTIME NEEDED FOR UP TO 30 DAYS 30 tablet 0 12/18/2021 Active Start: 09-19-2021 End: 09-19-2021 take 1 tablet by mouth at bedtime as needed zolpidem (AMBIEN) 5 mg tablet Indications: Iron deficiency anemia due to chronic blood loss Take 1 tablet by mouth at bedtime as needed for up to 14 days. 14 tablet 0 09/19/2021 09/19/2021 Discontinued Comment on above: Take 1 tablet by bear th at bedtime as needed for up to 30 days. Take 1 tablet by bear th at bedtime as needed for up to 14 days. TAKE 1 TABLET BY BEAR TH AT BEDTIME NEEDED FOR UP TO 30 DAYS Take 1 tablet by bear th at bedtime as needed for up to 90 days. Completed/Discontinued Medications Medication Drug Class(es) Dates Sig (Normalized) Sig (Original) apixaban 2.5 mg oral tablet (20 sources) Factor Xa Inhibitor Start: 07-11-2022 End: 02-20-2023 take 1 tablet by mouth twice daily apixaban (Eliquis) 2.5 mg tablet Take 1 tablet (2.5 mg) by mouth twice a day. 0 07/11/2022 02/20/2023 Discontinued (Med List Cleanup) Start: 06-20-2021 End: 12-03-2021 take 0.5 tablet by mouth twice daily apixaban (ELIQUIS) 5 mg tab(s) Take 0.5 tablets by mouth twice daily. 60 tablet 5 06/20/2021 12/03/2021 Discontinued End: 02-20-2023 take 1 tablet by mouth twice daily apixaban (Eliquis) 5 mg tablet Take 1 tablet (5 mg) by mouth 2 times a day. 0 02/20/2023 Discontinued (Med List Cleanup) Comment on above: Take 0.5 tablets by mouth twice daily. Take 1 tablet by bear th twice daily. aspirin 325 mg delayed release oral tablet (20 sources) Platelet Aggregation Inhibitor, Nonsteroidal Anti-inflammatory Drug Start: 07-27-2020 End: 12-03-2021 take 1 tablet by mouth twice daily aspirin, enteric coated (ASPIRIN, ENTERIC COATED) 325 mg EC tablet Take 1 tablet by mouth twice daily for 21 days. 42 tablet 0 07/27/2020 12/03/2021 Discontinued take 81 mg by mouth once daily B LINA ASPIRIN ORAL Take 81 mg by mouth once daily. Active take 1 tablet by mouth once phuong y aspirin 81 mg EC tablet Take 1 tablet (81 mg) by mouth once daily. 0 Active Comment on above: Take 81 mg by mouth once daily. Take 1 tablet by bear th twice daily for 21 days. atenolol 50 mg oral tablet (1 source) beta-Adrenergic Freda Start: 5 End: 3 take 1 tablet by mouth once daily atenolol (Tenormin) 50 mg tablet Take 1 tablet (50 mg) by mouth once daily. 0 10/12/2014 02/20/2023 Discontinued (Med List Cleanup) atorvastatin 80 mg oral tablet (1 source) HMG-CoA Reductase Inhibitor Start: 4 End: 3 atorvastatin (Lipitor) 80 mg tablet Take by mouth once daily. 0 04/21/2013 02/20/2023 Discontinued (Med List Cleanup) calcium carbonate 500 mg chewable tablet (20 sources) Start: 1 take 1 tablet by mouth twice daily as needed calcium carbonate (CALCIUM ANTACID) 500 mg chew One po bid prn gastritis 60 tablet 5 09/13/2020 Suspended take 1 tablet by mouth in the mo rning calcium carbonate (Os-Kentrell) 600 MG tablet Take 1 tablet by mouth in the morning and 1 tablet in the evening. Take before meals. Active calcium carbonat e (Tums) 500 MG chewable tablet Chew 1 tablet daily. Active take 2 tablets by mouth once emily ly calcium carbonate (CALCIUM 600 ORAL) Take 2 tablets by mouth once daily. 0 Active Comment on above: One po bid prn gastr itis cholestyramine resin 4000 mg powder for oral suspension (20 sources) Bile Acid Sequestrant Start: End: take 1 dose by mouth three times daily at mealtime cholestyramine (QUESTRAN) 4 gram packet Take 1 Packet by mouth three times daily with meals. 90 Packet 11 12/10/2021 03/22/2022 Discontinued (Course of therapy completed) Comment on above: Take 1 Packet by bear th three times daily with meals. colesevelam hydrochloride 625 mg oral tablet (3 sources) Bile Acid Sequestrant Start: take 3 tablets by mouth twice daily before mealtime colesevelam (WELCHOL) 625 mg tablet Indications: Chronic diarrhea Take 3 tablets by mouth twice daily before meals. 360 tablet 3 12/03/2021 Active Comment on above: Take 3 tablets by mo ut twice daily before meals. docusate sodium 100 mg oral capsule (16 sources) Start: End: take 1 capsule by mouth twice daily docusate sodium (COLACE) 100 mg capsule TAKE 1 CAPSULE BY MOUTH 2 TIMES PER DAY 0 01/21/2022 03/22/2022 Discontinued (Course of therapy completed) Comment on above: TAKE 1 CAPSULE BY MO UTH 2 TIMES PER DAY doxepin 3 mg oral tablet (12 sources) Tricyclic Antidepressant Start: End: take 1 tablet by mouth once daily at bedtime doxepin 3 mg tablet Take 1 tablet (3 mg) by mouth once daily at bedtime. 0 12/13/2022 02/20/2023 Discontinued (Med List Cleanup) Comment on above: Take 1 tablet by bear th daily at bedtime. fenofibrate 145 mg oral tablet (20 sources) Peroxisome Proliferator Receptor alpha Agonist Start: 013 End: take 1 tablet by mouth once daily fenofibrate nanocrystallized (TRICOR) 145 mg tablet Take 1 tablet by mouth once daily 90 tablet 3 01/29/2021 12/03/2021 Discontinued Comment on above: Take 1 tablet by bear th once daily fluorouracil 50 mg/ml topical cream (20 sources) Nucleoside Metabolic Inhibitor Start: End: Fluorouracil 5 % cream Patient states she stopped this 2 days ago, but is going to ask his Seo Intern to see if he should continue. 0 07/14/2021 12/03/2021 Discontinued Start: 07-14-2021 Fluorouracil 5 % cream APPLY CREAM TOPICALLY TWICE DAILY TO FOREHEAD DIRECTED FOR 14 DAYS 0 07/14/2021 Active Comment on above: APPLY CREAM TOPICALL Y TWICE DAILY TO FOREHEAD DIRECTED FOR 14 DAYS Patient states she s topped this 2 days ago, but is going to ask his Seo Intern to see if he should continue. 30 actuat fluticasone furoate 0.2 mg/actuat / vilanterol 0.025 mg/actuat dry powder inhaler (20 sources) Corticosteroid, beta2-Adrenergic Agonist Start: 09-11-19 23 End: 02-21-20 23 take 1 puff(s) by inhalation once daily Breo Ellipta 200-25 mcg/dose inhaler Inhale 1 puff once daily. 0 09/10/2022 02/20/2023 Discontinued (Med List Cleanup) Start: 07-30-2022 End: 10-28-2022 fluticasone-vilanterol (BREO ELLIPTA) 200-25 mcg/dose inhaler Inhale 1 Inhalation as instructed once daily. 60 Each 2 07/30/2022 Active Comment on above: Inhale 1 Inhalation as instructed once daily. fluticasone/umeclidin/suraj nter (TRELEGY ELLIPTA INHALATION) (20 sources) fluticasone/umec lidin/vilan ter (TRELEGY ELLIPTA INHALATION) Inhale as instructed. 0 Suspended fluticasone/umec lidin/vilanter (TRELEGY ELLIPTA INHALATION) Inhale as instructed. 0 Active Comment on above: Inhale as instructed . hydroCHLOROthiazide 12.5 mg / lisinopril 20 mg oral tablet (1 source) Thiazide Diuretic, Angiotensin Converting Enzyme Inhibitor Start: 013 End: take 1 tablet by mouth once daily lisinopriL-hydrochl orothiazide 20-12.5 mg tablet Take 1 tablet by mouth once daily. 0 07/18/2012 02/20/2023 Discontinued (Med List Cleanup) mirtazapine 30 mg oral tablet (20 sources) Start: End: take 1 tablet by mouth once daily at bedtime mirtazapine (REMERON) 30 mg tablet Take 1 tablet by mouth daily at bedtime. 30 tablet 5 09/12/2021 12/03/2021 Discontinued Comment on above: Take 1 tablet by bear th daily at bedtime. oxybutynin chloride 5 mg oral tablet (20 sources) Cholinergic Muscarinic Antagonist Start: End: take 1 tablet by mouth three times daily oxybutynin (DITROPAN) 5 mg tablet Take 1 tablet by mouth three times daily. 90 tablet 3 07/18/2021 12/03/2021 Discontinued Comment on above: Take 1 tablet by bear th three times daily. predniSONE 20 mg oral tablet (20 sources) Start: End: take 1 tablet by mouth twice daily predniSONE (Deltasone) 20 mg tablet Take 1 tablet (20 mg) by mouth 2 times a day. 0 07/02/2022 02/20/2023 Discontinued (Med List Cleanup) Start: 04-17-2022 End: 04-22-2022 take 1 tablet by mouth twice daily predniSONE (DELTASONE) 20 mg tablet Indications: Wheeze Take 1 tablet by mouth twice daily for 5 days. 10 tablet 0 04/17/2022 04/22/2022 Active Comment on above: Take 1 tablet by bear th twice daily for 5 days. Take 1 tablet by bear th twice daily. roflumilast 0.5 mg oral tablet (20 sources) Phosphodiesterase 4 Inhibitor Start: End: take 1 tablet by mouth once roflumilast (DALIRESP) 500 mcg tab Take 1 tablet by mouth every afternoon. 0 11/23/2022 11/12/2023 Discontinued (Course of therapy completed) Comment on above: Take 1 tablet by bear th every afternoon. traZODone hydrochloride 50 mg oral tablet (3 sources) Serotonin Reuptake Inhibitor Start: take 1 tablet by mouth once daily at bedtime traZODone (DESYREL) 50 mg tablet Indications: Insomnia, unspecified type Take 1 tablet by mouth daily at bedtime. 30 tablet 0 05/28/2021 Active Comment on above: Take 1 tablet by bear th daily at bedtime. Problems Active Problems Problem Classification Problem Date Documented Da te Episodic/Chronic Acute myocardial infarction (20 sources) Myocardial infarction; Translations: [Non-ST elevation (NSTEMI) myocardial infarction] Onset: 9 03-31-2019 Chronic Allergic reactions (4 sources) Allergy status to penicillin; Translations: [Allergy status to other antibiotic agents status] Onset: 8 Episodic Cancer of kidney and renal pelvis (20 sources) Malignant tumor of kidney; Translations: [Malignant neoplasm of right kidney, except renal pelvis] Onset: 8 03-31-2019 Chronic Cancer; other and unspecified primary (2 sources) Personal history of malignant neoplasm, unspecified; Translations: [Personal history of malignant neoplasm, unspecified] Onset: 8 Episodic Cardiac and circulatory congenital anomalies (20 sources) Vascular disorder; Translations: [Arteriovenous malformation, site unspecified] Onset: 3 12-02-2022 Chronic Cardiac dysrhythmias (5 sources) Atrial fibrillation; Translations: [Unspecified atrial fibrillation] Onset: 3 02-20-2023 Chronic Chronic kidney disease (20 sources) Chronic kidney disease stage 2; Translations: [Chronic kidney disease, stage 2 (mild)] Onset: 9 11-10-2018 Chronic Chronic kidney disease (1 source) Chronic kidney disease; Translations: [CHRONIC KIDNEY DISEASE STAGE 3B] Onset: 3 Chronic obstructive pulmonary disease and bronchiectasis (20 sources) Chronic obstructive pulmonary disease, unspecified; Translations: [Acute exacerbation of chronic obstructive airways disease] Onset: 8 Chronic Chronic obstructive pulmonary disease and bronchiectasis (1 source) Bronchitis; Translations: [Bronchitis, not specified as acute or chronic] Episodic Coagulation and hemorrhagic disorders (1 source) Other primary thrombophilia; Translations: [OTHER PRIMARY THROMBOPHILIA] Onset: 3 Chronic Conduction disorders (1 source) Left anterior fascicular block; Translations: [LEFT ANTERIOR FASCICULAR BLOCK] Onset: 4 Chronic Coronary atherosclerosis and other heart disease (20 sources) Coronary arteriosclerosis; Translations: [Atherosclerotic heart disease of [place] coronary artery without angina pectoris] Onset: 3 12-02-2022 Chronic Deficiency and other anemia (20 sources) Iron deficiency anemia due to blood loss; Translations: [Iron deficiency anemia secondary to blood loss (chronic)] Onset: 2 Chronic Deficiency and other anemia (1 source) Anemia due to chronic blood loss; Translations: [Iron deficiency anemia secondary to blood loss (chronic)] Onset: 8 01-27-2022 Chronic Deficiency and other anemia (2 sources) Iron deficiency anemia, unspecified; Translations: [Iron deficiency anemia, unspecified] Onset: 8 Episodic Deficiency and other anemia (1 source) Nutritional anemia, unspecified; Translations: [NUTRITIONAL ANEMIA UNSPECIFIED] Onset: 4 Episodic Diabetes mellitus without complication (1 source) Hyperglycemia; Translations: [Impaired fasting glucose] Onset: 3 02-17-2023 Episodic Diseases of white blood cells (20 sources) Leukocytosis; Translations: [Elevated white blood cell count, unspecified] Onset: 9 03-31-2019 Chronic Disorders of lipid metabolism (20 sources) Mixed hyperlipidemia; Translations: [Hypertriglyceridemia] Onset: 8 01-11-2019 Chronic Diverticulosis and diverticulitis (1 source) Gastrointestinal hemorrhage; Translations: [Diverticulosis of intestine, part unspecified, without perforation or abscess with bleeding] Chronic Esophageal disorders (20 sources) Gastroesophageal reflux disease; Translations: [Gastro-esophageal reflux disease without esophagitis] Onset: 3 04-10-2021 Chronic Esophageal disorders (2 sources) Disease of esophagus, unspecified; Translations: [Disease of esophagus, unspecified] Onset: 8 Episodic Essential hypertension (20 sources) Essential (primary) hypertension; Translations: [Essential hypertension] Onset: 8 05-16-2021 Chronic Heart valve disorders (1 source) Rheumatic disorders of both mitral and aortic valves; Translations: [RHEUMATIC D/O MITRAL AORTIC VALVES] Onset: 3 Chronic Hyperplasia of prostate (20 sources) Benign prostatic hyperplasia; Translations: [Benign prostatic hyperplasia without lower urinary tract symptoms] Onset: 9 10-05-2018 Chronic Hypertension with complications and secondary hypertension (2 sources) Chronic kidney disease due to hypertension; Translations: [Hypertensive chronic kidney disease with stage 1 through stage 4 chronic kidney disease, or unspecified chronic kidney disease] Onset: 3 02-20-2023 Chronic Immunity disorders (1 source) Immunodeficiency, unspecified; Translations: [IMMUNODEFICIENCY UNSPECIFIED] Onset: 3 Chronic Leukemias (20 sources) Chronic lymphoid leukemia, disease; Translations: [Chronic lymphocytic leukemia of B-cell type not having achieved remission] Onset: 8 05-16-2021 Chronic Miscellaneous mental health disorders (20 sources) Primary insomnia; Translations: [Primary insomnia] Onset: 3 Chronic Nausea and vomiting (1 source) Nausea with vomiting, unspecified; Translations: [NAUSEA WITH VOMITING UNSPECIFIED] Onset: 4 Episodic Neoplasms of unspecified nature or uncertain behavior (20 sources) Essential thrombocythemia; Translations: [Essential (hemorrhagic) thrombocythemia] Onset: 9 05-25-2020 Chronic Noninfectious gastroenteritis (1 source) Chronic diarrhea; Translations: [Noninfective gastroenteritis and colitis, unspecified] Episodic Nutritional deficiencies (20 sources) Deficiency of macronutrients; Translations: [Unspecified severe protein-calorie malnutrition] Onset: 2 05-16-2021 Chronic Other aftercare (3 sources) [facility] (current) use of aspirin; Translations: [regional 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 (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) use of aspirin] Onset: 8 Episodic Other aftercare (1 source) regional 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 (current) use of inhaled steroids; Translations: [INFORMATION ASSURANCE ENGINEER USE OF INHALED STEROIDS] Onset: 4 Episodic Other aftercare (1 source) [facility] (current) use of systemic steroids; Translations: [INFORMATION ASSURANCE ENGINEER USE OF SYSTEMIC STEROIDS] Onset: 4 Episodic Other aftercare (1 source) Other senior care (current) drug therapy; Translations: [OTH INFORMATION ASSURANCE ENGINEER CURRENT DRUG THERAPY] Onset: 4 Episodic Other and unspecified benign neoplasm (2 sources) Benign lipomatous neoplasm of intra-abdominal organs; Translations: [Benign lipomatous neoplasm of intra-abdominal organs] Onset: 8 Episodic Other and unspecified benign neoplasm (20 sources) Lipoma (clinical); Translations: [Benign lipomatous neoplasm, unspecified] 03-20-2018 Episodic Other and unspecified benign neoplasm (1 source) History of polyp of colon; Translations: [Personal history of colonic polyps] Episodic Other and unspecified benign neoplasm (1 source) Lipoma of upper limb; Translations: [Benign lipomatous neoplasm of skin and subcutaneous tissue of unspecified limb] Onset: 3 02-17-2023 Episodic Other circulatory disease (1 source) Orthostatic hypotension; Translations: [ORTHOSTATIC HYPOTENSION] Onset: 4 Episodic Other connective tissue disease (7 sources) Disorder of skeletal muscle; Translations: [Other symptoms and signs involving the musculoskeletal system] Episodic Other connective tissue disease (3 sources) Pain of right calf; Translations: [Pain in right lower leg] Episodic Other connective tissue disease (1 source) Decreased muscle tone; Translations: [Other symptoms and signs involving the musculoskeletal system] 12-13-2022 Episodic Other connective tissue disease (2 sources) Other symptoms and signs involving the musculoskeletal system; Translations: [Severe muscle deconditioning] Onset: 3 Episodic Other fractures (1 source) Closed fracture lumbar vertebra; Translations: [Unspecified fracture of unspecified lumbar vertebra, initial encounter for closed fracture] Onset: 4 Episodic Other gastrointestinal disorders (2 sources) Intestinal bypass and anastomosis status; Translations: [Intestinal bypass and anastomosis status] Onset: 8 Chronic Other gastrointestinal disorders (6 sources) Heartburn; Translations: [Angiodysplasia of colon without hemorrhage] Onset: 8 Episodic Other gastrointestinal disorders (1 source) Diarrhea; Translations: [Diarrhea, unspecified] Episodic Other gastrointestinal disorders (2 sources) Acquired arteriovenous malformation; Translations: [Angiodysplasia of colon with hemorrhage] Episodic Other hematologic conditions (2 sources) Raised cardiac enzyme or marker; Translations: [Other specified abnormalities of plasma proteins] Onset: 3 12-03-2022 Episodic Other injuries and conditions due to external causes (1 source) Traumatic AND/OR non-traumatic injury; Translations: [Other injury of unspecified body region, initial encounter] Onset: 4 Episodic Other lower respiratory disease (1 source) Interstitial pulmonary disease, unspecified; Translations: [INTERSTITIAL PULMONARY DISEASE UNS] Onset: 4 Chronic Other lower respiratory disease (1 source) Pulmonary fibrosis, unspecified; Translations: [PULMONARY FIBROSIS UNSPECIFIED] Onset: 3 Chronic Other lower respiratory disease (1 source) Other specified interstitial pulmonary diseases; Translations: [OTH SPEC INTERSTITIAL PULMONARY DZ] Onset: 3 Chronic Other lower respiratory disease (6 sources) Wheezing; Translations: [Wheezing] Episodic Other lower respiratory disease (2 sources) Chronic cough; Translations: [Chronic cough] Onset: 3 Episodic Other lower respiratory disease (1 source) Solitary pulmonary nodule; Translations: [SOLITARY PULMONARY NODULE] Onset: 4 Episodic Other lower respiratory disease (1 source) Cough; Translations: [Acute cough] 10-17-2023 Episodic Other male genital disorders (2 sources) Adult hydrocele; Translations: [Hydrocele, unspecified] Episodic Other male genital disorders (2 sources) Atypical small acinar proliferation of prostate; Translations: [Atypical small acinar proliferation of prostate] Episodic Other non-traumatic joint disorders (14 sources) Pain in left knee; Translations: [Pain in joint, lower leg] Episodic Other non-traumatic joint disorders (20 sources) Hip pain; Translations: [Pain in left hip] Episodic Other nutritional; endocrine; and metabolic disorders (20 sources) Obese class I; Translations: [Obesity, unspecified] Onset: 2 05-28-2021 Chronic Other skin disorders (2 sources) Disorder of left upper extremity; Translations: [Localized swelling, mass and lump, left upper limb] Episodic Other upper respiratory disease (1 source) Allergic rhinitis; Translations: [Allergic rhinitis, unspecified] Onset: 3 02-20-2023 Chronic Other upper respiratory infections (2 sources) Upper respiratory infection; Translations: [Acute upper respiratory infection, unspecified] Episodic Otitis media and related conditions (1 source) Acute secretory otitis media; Translations: [Other acute nonsuppurative otitis media, right ear] 10-17-2023 Episodic Phlebitis; thrombophlebitis and thromboembolism (20 sources) Chronic deep venous thrombosis of thigh; Translations: [Chronic embolism and thrombosis of unspecified deep veins of left proximal lower extremity] Onset: 3 12-02-2022 Chronic Pulmonary heart disease (1 source) Chronic pulmonary embolism; Translations: [CHRONIC PULMONARY EMBOLISM] Onset: 3 Chronic Residual codes; unclassified (20 sources) Obstructive sleep apnea syndrome; Translations: [Obstructive sleep apnea (adult) (pediatric)] Onset: 2 05-01-2021 Chronic Residual codes; unclassified (14 sources) Insomnia; Translations: [Other insomnia] Chronic Residual codes; unclassified (2 sources) Obstructive sleep apnea (adult) (pediatric); Translations: [OBSTRUCTIVE SLEEP APNEA] Onset: 3 Chronic Residual codes; unclassified (2 sources) Edema of lower extremity; Translations: [Localized edema] Episodic Screening or history of mental health and substance abuse (2 sources) Personal history of nicotine dependence; Translations: [Personal history of nicotine dependence] Onset: 8 Episodic Spondylosis; intervertebral disc disorders; other back problems (8 sources) Neck pain; Translations: [Cervicalgia] Onset: 4 Episodic Unclassified (1 source) ACIDOSIS UNSPECIFIED; Translations: [ACIDOSIS UNSPECIFIED] Onset: 4 Unclassified (1 source) PERSONAL HISTORY OF COVID-19; Translations: [PERSONAL HISTORY OF COVID-19] Onset: 3 Unclassified (2 sources) SUBACUTE COUGH; Translations: [SUBACUTE COUGH] Onset: 3 Unclassified (1 source) Physical Therapy Onset: 4 Unclassified (1 source) Acute midline low back pain without sciatica; Translations: [Acute midline low back pain without sciatica] Onset: 4 Past or Other Problems Problem Classification Problem Date Documented Da te Episodic/Chronic Acute and unspecified renal failure (20 sources) Acute injury of kidney; Translations: [Acute kidney failure, unspecified] Onset: 9 05-16-2021 Episodic Acute posthemorrhagic anemia (20 sources) Acute posthemorrhagic anemia; Translations: [Acute posthemorrhagic anemia] Onset: 2 05-16-2021 Episodic Administrative/social admission (20 sources) Other reduced mobility; Translations: [Other specified conditions influencing health status] Onset: 4 Episodic Cancer of kidney and renal pelvis (2 sources) H/O: malignant neoplasm; Translations: [Personal history of other malignant neoplasm of kidney] Onset: 3 Episodic Cardiac dysrhythmias (20 sources) Tachycardia; Translations: [Tachycardia, unspecified] Onset: 3 12-03-2022 Episodic Conditions associated with dizziness or vertigo (20 sources) Lightheadedness; Translations: [Dizziness and giddiness] Onset: 3 11-27-2022 Episodic Coronary atherosclerosis and other heart disease (20 sources) Patient post percutaneous transluminal coronary angioplasty; Translations: [Coronary angioplasty status] Onset: 9 11-25-2018 Episodic Deficiency and other anemia (20 sources) Iron deficiency anemia; Translations: [Iron deficiency anemia, unspecified] Onset: 8 03-31-2019 Episodic Deficiency and other anemia (20 sources) Anemia; Translations: [Anemia, unspecified] Onset: 2 05-16-2021 Episodic E Codes: Adverse effects of medical drugs (20 sources) Iron adverse reaction; Translations: [Adverse effect of iron and its compounds, initial encounter] Onset: 8 10-24-2017 Episodic Fracture of neck of femur (hip) (12 sources) Closed subtrochanteric fracture of left femur; Translations: [Displaced subtrochanteric fracture of left femur, initial encounter for closed fracture] Onset: 1 Resolved: 1 07-27-2020 Episodic Gastrointestinal hemorrhage (14 sources) Gastrointestinal hemorrhage; Translations: [Gastrointestinal hemorrhage, unspecified] Onset: 9 Resolved: 9 Episodic Genitourinary symptoms and ill-defined conditions (20 sources) Nocturia; Translations: [Nocturia] Onset: 8 Resolved: 9 03-19-2018 Episodic Leukemias (1 source) Personal history of leukemia; Translations: [PERSONAL HISTORY OF LEUKEMIA] Onset: 3 Episodic Malaise and fatigue (20 sources) Physical deconditioning; Translations: [Other malaise] Onset: 4 Episodic Mood disorders (20 sources) 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 medical condition; Translations: [Mood disorder due to known physiological condition, unspecified] Onset: 3 12-09-2022 Episodic Other aftercare (20 sources) Patient encounter status; Translations: [Encounter for therapeutic drug level monitoring] Onset: 3 12-11-2022 Episodic Other connective tissue disease (20 sources) Swelling of lower limb; Translations: [Other specified soft tissue disorders] Onset: 1 03-14-2021 Episodic Other gastrointestinal disorders (20 sources) History of gastrointestinal bleed; Translations: [Personal history of other diseases of the digestive system] Onset: 3 12-02-2022 Episodic Other gastrointestinal disorders (12 sources) Arteriovenous malformation of large intestine; Translations: [Angiodysplasia of colon without hemorrhage] Resolved: 9 01-11-2019 Episodic Other gastrointestinal disorders (1 source) Diarrhea, unspecified; Translations: [DIARRHEA UNSPECIFIED] Onset: 3 Episodic Other hematologic conditions (1 source) Other specified abnormalities of plasma proteins; Translations: [OTH SPEC ABNORM PLASMA PROTEINS] Onset: 3 Episodic Other lower respiratory disease (20 sources) Dyspnea; Translations: [Shortness of breath] Onset: 3 11-27-2022 Episodic Other lower respiratory disease (20 sources) Multiple nodules of lung; Translations: [Other nonspecific abnormal finding of lung field] Onset: 3 12-05-2022 Episodic Other lower respiratory disease (1 source) Personal history of pneumonia (recurrent); Translations: [PERSONAL HX OF PNEUMONIA RECURRENT] Onset: 3 Episodic Other nervous system disorders (12 sources) Numbness of face; Translations: [Anesthesia of skin] Onset: 9 Resolved: 9 04-03-2019 Episodic Other screening for suspected conditions (not mental disorders or infectious disease) (17 sources) Raised prostate specific antigen; Translations: [Elevated prostate specific antigen [PSA]] Onset: 3 Resolved: 3 Episodic Phlebitis; thrombophlebitis and thromboembolism (20 sources) Deep venous thrombosis of lower extremity; Translations: [Acute embolism and thrombosis of left femoral vein] Onset: 1 03-14-2021 Episodic Pneumonia (except that caused by tuberculosis or sexually transmitted disease) (1 source) Other viral pneumonia; Translations: [OTHER VIRAL PNEUMONIA] Onset: 3 Episodic Pulmonary heart disease (20 sources) Pulmonary embolism; Translations: [Other pulmonary embolism without acute cor pulmonale] Onset: 3 12-01-2022 Episodic Residual codes; unclassified (20 sources) History of excision of intestinal structure; Translations: [Acquired absence of other specified parts of digestive tract] Onset: 5 02-26-2017 Episodic Residual codes; unclassified (20 sources) History of nephrectomy; Translations: [Acquired absence of kidney] Onset: 9 04-03-2019 Episodic Residual codes; unclassified (1 source) Acquired absence of other specified parts of digestive tract; Translations: [ACQ ABSENCE OTH PART DIGESTV TRACT] Onset: 3 Episodic Respiratory failure; insufficiency; arrest (adult) (1 source) Acute respiratory failure with hypoxia; Translations: [ACUTE RESPIRATORY FAIL W/HYPOXIA] Onset: 3 Episodic Septicemia (except in labor) (2 sources) Sepsis, unspecified organism; Translations: [Sepsis due to Streptococcus pneumoniae] Onset: 3 Episodic Unclassified (3 sources) Acquired absence of kidney; Translations: [Acquired absence of kidney] Onset: 8 Episodic Viral infection (20 sources) Disease caused by 2019-nCoV; Translations: [COVID-19] Onset: 2 05-16-2021 Episodic Results Test Name Value Interpretation Reference Range Facility [facility] 09-18-2023 ESTHER Telephone (GGENMN) ADINA DAVID ([id number]) 1955 M Date Time Provider Department 09/18/23 HORTENCIA GALLARDO [facility]GEN[facility] During your visit today, we recorded the following information about you: Tereza Sunshine 09/18/2023 11:52 AM Signed 09/18/23 Patient calling for sooner appt.ed nurse cannot help with sooner appts. She can see if she can recommend anything for his internal bleeding issue he is still having. Fidencio Fernandez RN 09/19/2023 3:16 PM Signed Discussed with Dr. You to add pt 09/24/23 at 1600. Called pt to notify of sooner appt-no answer. Left VM with appt info. Fidencio Mon RN Allergies As of Date: 09/18/2023 Noted Allergy Reaction DOXYCYCLINE 07/17/2021 5 - Intolerance Comments: Rash, diarrhea PENICILLIN 02/22/2017 4 - Hives PENICILLIN V POTASSIUM 12/20/2021 14 - Other: See Comments Date Reviewed: 12/19/2022 Reviewed by: Halle Dale MD - Fully Assessed Reason for Visit: Appointment [186] Prescriptions as of 09/19/2023 - REPATHA SURECLICK 140 mg/mL pen injector INJECT 1 DOSE SUBCUTANEOUSLY ONCE EVERY MONTH - xacsawckkvg-vbzfxjspu-i ilanter (TRELEGY ELLIPTA) 100-62.5-25 mcg inhalation powder Inhale 1 Puff as instructed once daily. - metoprolol tartrate, short acting, (LOPRESSOR) 25 mg tablet Take half a tablet by mouth twice daily. - enoxaparin (LOVENOX) 40 mg/0.4 mL Inject 0.4 mL subcutaneously every 24 hours. - hydroxyurea (HYDREA) 500 mg capsule Take 2 capsules by mouth once daily. - sodium bicarbonate 650 mg tablet Take 1 tablet by mouth twice daily. - roflumilast (DALIRESP) 500 mcg tab Take 1 tablet by mouth every afternoon. - omeprazole (PRILOSEC) 40 mg capsule Take 1 capsule by mouth once daily - zolpidem (AMBIEN) 5 mg tablet Take 1 tablet by mouth at bedtime as needed for up to 90 days. - magnesium oxide (MAG-OX) 400 mg (241.3 mg magnesium) tablet Take 0.5 tablets by mouth once daily. 0.5 tablet - CPAP - BABY ASPIRIN ORAL Take 81 mg by mouth once daily. - ergocalciferol 50,000 unit capsule (VITAMIN D2, DRISDOL) once every month. Problem List As Of Date 09/18/2023 Noted Resolved Multiple lipomas [D17.9] GERD (gastroesophageal reflux disease) [K21.9] H/O resection of large bowel [Z90.49] 04/14/2004 Essential hypertension [I10] Renal cancer, right (HCC) [C64.1] 04/29/2017 CLL (chronic lymphocytic leukemia) (HCC) [C91.1*06/13/2017 Iron deficiency anemia [D50.9] 06/13/2017 Iron adverse reaction [T45.4X5A] 10/24/2017 Frequency of urination [R35.0] 03/19/2018 02/11/2019 Nocturia [R35.1] 03/19/2018 BPH (benign prostatic hyperplasia) [N40.0] 10/05/2018 History of right nephrectomy [Z90.5] 10/05/2018 NSTEMI (non-ST elevated myocardial infarction) *10/24/2018 Stage 2 chronic kidney disease [N18.2] 11/10/2018 Post PTCA [Z98.61] 11/25/2018 S/P drug eluting coronary stent placement [Z95.*11/25/2018 GI bleed [K92.2] 12/31/2018 01/11/2019 Hypertriglyceridemia [E78.1] 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.* 01/11/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] DENG (acute kidney injury) (HCC) [N17.9] 01/07/2019 Facial numbness [R20.0] 03/31/2019 04/03/2019 Leukocytosis [D72.829] 03/31/2019 Essential thrombocythemia (HCC) [D47.3] 03/31/2019 CKD (chronic kidney disease) stage 3, GFR 30-59*03/31/2019 Closed left subtrochanteric femur fracture (HCC*07/22/2020 07/27/2020 Deep vein thrombosis (DVT) of femoral vein of l*03/14/2021 Leg swelling [M79.89] 03/14/2021 CIRA on CPAP [G47.33] 05/01/2021 Severe anemia [D64.9] 05/02/2021 Severe protein-calorie malnutrition (HCC) [E43] 05/09/2021 Acute blood loss anemia [D62] 05/16/2021 COVID-19 virus infection [U07.1] 05/16/2021 Obesity, Class I, BMI 30-34.9 [E66.9] 05/28/2021 Vitamin D deficiency [E55.9] 07/17/2021 Iron deficiency anemia due to chronic blood los*02/19/2022 SOB (shortness of breath) [R06.02] 11/27/2022 Lightheadedness [R42] 11/27/2022 Pulmonary embolism, unspecified chronicity, uns*12/01/2022 Coronary artery disease involving [place]*12/02/2022 Other emphysema (HCC) [J43.8] 12/02/2022 Chronic deep vein thrombosis (DVT) of proximal *12/02/2022 AVM (arteriovenous malformation) [Q27.30] 12/02/2022 History of gastrointestinal bleeding [Z87.19] 12/02/2022 Tachycardia [R00.0] 12/03/2022 Elevated troponin [R79.89] 12/03/2022 12/11/2022 Pulmonary nodules [R91.8] 12/05/2022 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 Examination title should read: EXAMINATION: CHEST RADIOGRAPH (2 VIEW AP AND LATERAL) Report Dictated on Authenticated by: JAIME ATKINS On: 08/26/2023 09:04 Read by: JAIME ATKINS MD, MD Date: 08/26/2023 09:04 ORIGINAL EXAMINATION: CHEST RADIOGRAPH (SINGLE VIEW AP OR PA) Clinical History: SHORTNESS OF BREATH, Respiratory crackles Comparison: Radiograph 12/22/2022 RESULT: See impression IMPRESSION: Lines, tubes, and devices: None. Lungs and pleura: Patchy opacity in the right midlung zone is nonspecific and could reflect residua of prior infectious/inflammatory process or new developing infectious/inflammatory process. Recommend follow-up two-view chest radiograph or chest CT on nonemergent basis to document resolution. There may be a mild patchy left midlung zone opacity as well. Mild streaky bibasilar opacities, likely atelectasis. No sizable pleural effusion or pneumothorax. No overt pulmonary edema. Cardiomediastinal silhouette: Stable cardiomediastinal silhouette. Other: Degenerative changes of the spine and acromioclavicular joints. Old right seventh rib fracture deformity. Report Dictated on Authenticated by: JAIME ATKINS On: 08/15/2023 17:49 Read by: JAIME ATKINS MD, MD Date: 08/15/2023 17:49 [facility] Comment on above: Order Comment: Rales right lower lobe posteriorly CT HEAD OR BRAIN W/O CONTRAS Ton 05-06-2023 CT HEAD OR BRAIN W/O CONTRAST ORIGINAL EXAMINATION: CT OF THE HEAD WITHOUT CONTRAST05/05/2023 11:00 pm TECHNIQUE: CT of the head was performed without the administration of intravenous contrast. Automated exposure control, iterative reconstruction, and/or weight based adjustment of the mA/kV was utilized to reduce the radiation dose to as low as reasonably achievable. Axial CT images from skull base to vertex without IV contrast. This exam was performed according to our COMPARISON: 12/19/2022 HISTORY: ORDERING SYSTEM PROVIDED HISTORY: Reason for Exam: pain Fall on ice FINDINGS: There is no intracranial hemorrhage, mass, mass effect or abnormal extra-axial fluid collection. No CT evidence for acute infarction. Mild parenchymal volume loss with commensurate ventricular enlargement. Mild scattered hypodense areas in the periventricular and subcortical white matter which is nonspecific however most consistent with chronic microvascular angiopathy. Mineralization noted in the bilateral basal ganglia. Atherosclerotic calcification of the vertebral and cavernous carotid arteries. The skull base and calvarium demonstrate no abnormality. Mucosal thickening of the paranasal sinuses as well as aerated secretions in the left maxillary sinus. The mastoid air cells are clear. Unchanged calcification noted over the left eyelid. IMPRESSION: No acute intracranial abnormalities. Aerated secretions in the left maxillary sinus, with mild mucosal thickening. I have reviewed the study and agree with the report. Gold Nolan M.D. Interpreted by: Gold Nolan Preliminary Report By: Eileen Roldan Electronically signed By Gold Nolan Dictated Date: 05/05/2023 11:03:45 PM Prelim Date: 05/05/2023 11:10:45 PM Sign Date: 05/06/2023 12:09:18 AM Ordering Provider: HAFSA JOHNSON [facility] ([place]) [place] SPINE CERVICAL W/O CONTRA STon 05-06-2023 CT SPINE CERVICAL W/O CONTRAST ORIGINAL EXAMINATION: CT OF THE CERVICAL SPINE WITHOUT CONTRAST05/05/2023 9:[address] CERVICAL SPINE WITHOUT CONTRAST TECHNIQUE: CT of the cervical spine was performed without the administration of intravenous contrast. Multiplanar reformatted images are provided for review. Automated exposure control, iterative reconstruction, and/or weight based adjustment of the mA/kV was utilized to reduce the radiation dose to as low as reasonably achievable. COMPARISON: CT cervical spine, December 19, 2022 HISTORY: ORDERING SYSTEM PROVIDED HISTORY: Reason for Exam: pain FINDINGS: The cervical vertebral bodies are in normal alignment without acute fracture or subluxation. Mild depression of the superior endplate of the C7 vertebral body stable from prior. The vertebral body heights are maintained. There is a decrease within the C3-C4, C5-C6 disc space heights. The paraspinal soft tissues are within normal limits. The lung apices are clear. IMPRESSION: 1. No acute osseous injury. 2. Mild degenerative changes worst at C5-C6. 3. Chronic appearing changes of the C7 superior endplate. Interpreted by: Olivier Craven MD Preliminary Report By: Olivier Craven MD Electronically signed By Olivier Craven MD Dictated Date: 05/05/2023 11:05:03 PM Prelim Date: 05/05/2023 11:06:53 PM Sign Date: 05/05/2023 11:06:53 PM Ordering Provider: HAFSA Iqbal [facility] ([place]) CT THORAX W/O CONTRASTon CT THORAX W/O CONTRAST ORIGINAL EXAMINATION: CT OF THE CHEST WITHOUT CONTRAST 05/05/2023 10:59 pm TECHNIQUE: CT of the chest was performed without the administration of intravenous contrast. Multiplanar reformatted images are provided for review. Automated exposure control, iterative reconstruction, and/or weight based adjustment of the mA/kV was utilized to reduce the radiation dose to as low as reasonably achievable. COMPARISON: 12/19/2022 HISTORY: ORDERING SYSTEM PROVIDED HISTORY: Reason for Exam: fall FINDINGS: Mediastinum: Aorta is normal in caliber without acute abnormality. Esophagus is normal in caliber. There are few small mediastinal nodes. Heart is normal in size without pericardial effusion. There are coronary arterial calcifications. Correlation with clinical findings may be useful. Pulmonary arteries are normal in caliber. Lungs/pleura: There is no consolidation or pleural effusion. There is no pneumothorax. There is mild bibasilar atelectasis. At the lateral right upper lobe, there is a pulmonary mass with irregular margins measuring 3 x 2.3 cm trans axial by 2.5 cm cc with small lateral extensions to the pleura. A primary or metastatic neoplastic process cannot be excluded. Follow-up PET-CT, and possibly tissue sampling may be useful for further evaluation. Upper Abdomen: There is no acute abnormality. Soft Tissues/Bones: There are subacute fractures of the medial left 11th and 12th ribs. There is chronic fracture again noted of the lateral right 7th rib. There are mildly displaced acute processes of the right transverse processes of L1 and L2. There are subacute/chronic fractures of the left transverse processes of L1 and L2. IMPRESSION: 1. There is no consolidation or pleural effusion. There is no pneumothorax. At the lateral right upper lobe, there is a pulmonary mass with irregular margins measuring 3 x 2.3 cm trans axial by 2.5 cm cc with small lateral extensions to the pleura. A primary or metastatic neoplastic process cannot be excluded. Follow-up PET-CT, and possibly tissue sampling may be useful for further evaluation. 2. There are mildly displaced acute processes of the right transverse processes of L1 and L2. 3. There are subacute fractures of the medial left 11th and 12th ribs. There is chronic fracture again noted of the lateral right 7th rib. There are subacute/chronic fractures of the left transverse processes of L1 and L2 Interpreted by: Gold Nolan Preliminary Report By: Gold Nolan Electronically signed By Gold Nolan Dictated Date: 05/05/2023 11:06:23 PM Prelim Date: 05/05/2023 11:20:44 PM Sign Date: 05/05/2023 11:20:44 PM Ordering Provider: HAFSA Iqbal [facility] ([place]) XR SPINE LUMBOSACRAL 2 OR 3 VIEWSon 05-06-2023 XR SPINE LUMBOSACRAL 2 OR 3 VIEWS ORIGINAL EXAMINATION: 3 XRAY VIEWS OF THE LUMBAR SPINE05/05/2023 9:03 pm LUMBAR SPINE 2 or 3 VIEWS COMPARISON: None available HISTORY: ORDERING SYSTEM PROVIDED HISTORY: Reason for Exam: fall FINDINGS: Vertebral body height and alignment are normal without evidence of fracture or listhesis. Mild decrease within each of the disc space heights with adjacent endplate hypertrophy. The posterior elements are intact and without significant degenerative change. Evaluation of the soft tissues is without radiographic abnormality. IMPRESSION: Mild degenerative changes throughout. No acute osseous injury. Interpreted by: Olivier Craven MD Preliminary Report By: Olivier Craven MD Electronically signed By Olivier Craven MD Dictated Date: 05/05/2023 11:14:36 PM Prelim Date: 05/05/2023 11:15:21 PM Sign Date: 05/05/2023 11:15:21 PM Ordering Provider: HAFSA Iqbal [facility] ([place]) ED Nursing Noteon 05-05-2023 ED Nursing Note Family [facility] stating they are taking him to another hospital Vida Owusu RN 05/05/23 193 Normal [facility] ECG 12 lead (Clinic Performe d)on 02-20-2023 [facility] Work Phone: See scanned report [facility] Work Phone: Patrick 01-21-2023 CNPN Telephone ([facility]) FRANKIEADINA Jiang ([id number]) 1955 M Date Time Provider Department 01/21/23 NAKUL GALLEGOS [facility] During your visit today, we recorded the following information about you: Lucio Juan MA 01/21/2023 2:58 PM Signed Fyi- called patient to schedule his follow up appt. Pt declined and states he is no longer following up with [facility] providers-jj Allergies As of Date: 01/21/2023 Noted Allergy Reaction DOXYCYCLINE 07/17/2021 5 - Intolerance Comments: Rash, diarrhea PENICILLIN 02/22/2017 4 - Hives PENICILLIN V POTASSIUM 12/20/2021 14 - Other: See Comments Date Reviewed: 12/19/2022 Reviewed by: Halle Dale MD - Fully Assessed Reason for Visit: Appointment [186] Cmt: Fyi- called patient to schedule his follow up appt. Pt declined and states he is no longer following up with [facility] providers-j Prescriptions as of 01/21/2023 - BABY ASPIRIN ORAL Take 81 mg by mouth once daily. - CPAP - enoxaparin (LOVENOX) 40 mg/0.4 mL Inject 0.4 mL subcutaneously every 24 hours. - ergocalciferol 50,000 unit capsule (VITAMIN D2, DRISDOL) once every month. - evolocumab (REPATHA SURECLICK) 140 mg/mL pen injector Inject 140 mg subcutaneously every 2 weeks. - yfobgnfqfzg-sixjhlctt-b ilanter (TRELEGY ELLIPTA) 100-62.5-25 mcg inhalation powder Inhale 1 Puff as instructed once daily. - hydroxyurea (HYDREA) 500 mg capsule Take 2 capsules by mouth once daily. - magnesium oxide (MAG-OX) 400 mg (241.3 mg magnesium) tablet Take 0.5 tablets by mouth once daily. 0.5 tablet - metoprolol tartrate, short acting, (LOPRESSOR) 25 mg tablet Take half a tablet by mouth twice daily. - omeprazole (PRILOSEC) 40 mg capsule Take 1 capsule by mouth once daily - roflumilast (DALIRESP) 500 mcg tab Take 1 tablet by mouth every afternoon. - sodium bicarbonate 650 mg tablet Take 1 tablet by mouth twice daily. - zolpidem (AMBIEN) 5 mg tablet Take 1 tablet by mouth at bedtime as needed for up to 90 days. Problem List As Of Date 01/21/2023 Noted Resolved Multiple lipomas [D17.9] GERD (gastroesophageal reflux disease) [K21.9] H/O resection of large bowel [Z90.49] 04/14/2004 Essential hypertension [I10] Renal cancer, right (HCC) [C64.1] 04/29/2017 CLL (chronic lymphocytic leukemia) (HCC) [C91.1*06/13/2017 Iron deficiency anemia [D50.9] 06/13/2017 Iron adverse reaction [T45.4X5A] 10/24/2017 Frequency of urination [R35.0] 03/19/2018 02/11/2019 Nocturia [R35.1] 03/19/2018 BPH (benign prostatic hyperplasia) [N40.0] 10/05/2018 History of right nephrectomy [Z90.5] 10/05/2018 NSTEMI (non-ST elevated myocardial infarction) *10/24/2018 Stage 2 chronic kidney disease [N18.2] 11/10/2018 Post PTCA [Z98.61] 11/25/2018 S/P drug eluting coronary stent placement [Z95.*11/25/2018 GI bleed [K92.2] 12/31/2018 01/11/2019 Hypertriglyceridemia [E78.1] 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.* 01/11/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] DENG (acute kidney injury) (HCC) [N17.9] 01/07/2019 Facial numbness [R20.0] 03/31/2019 04/03/2019 Leukocytosis [D72.829] 03/31/2019 Essential thrombocythemia (HCC) [D47.3] 03/31/2019 CKD (chronic kidney disease) stage 3, GFR 30-59*03/31/2019 Closed left subtrochanteric femur fracture (HCC*07/22/2020 07/27/2020 Deep vein thrombosis (DVT) of femoral vein of l*03/14/2021 Leg swelling [M79.89] 03/14/2021 CIRA on CPAP [G47.33] 05/01/2021 Severe anemia [D64.9] 05/02/2021 Severe protein-calorie malnutrition (HCC) [E43] 05/09/2021 Acute blood loss anemia [D62] 05/16/2021 COVID-19 virus infection [U07.1] 05/16/2021 Obesity, Class I, BMI 30-34.9 [E66.9] 05/28/2021 Vitamin D deficiency [E55.9] 07/17/2021 Iron deficiency anemia due to chronic blood los*02/19/2022 SOB (shortness of breath) [R06.02] 11/27/2022 Lightheadedness [R42] 11/27/2022 Pulmonary embolism, unspecified chronicity, uns*12/01/2022 Coronary artery disease involving [place]*12/02/2022 Other emphysema (HCC) [J43.8] 12/02/2022 Chronic deep vein thrombosis (DVT) of proximal *12/02/2022 AVM (arteriovenous malformation) [Q27.30] 12/02/2022 History of gastrointestinal bleeding [Z87.19] 12/02/2022 Tachycardia [R00.0] 12/03/2022 Elevated troponin [R79.89] 12/03/2022 12/11/2022 Pulmonary nodules [R91.8] 12/05/2022 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 medical conditio*12/09/2022 Personal history of DVT (deep vein thrombosis) *12/11/2022 Anticoagulation management encounter [Z51.81, Z*12/11/2022 Primary insomnia [F51.01] 12/13/2022 Encounter Status:Closed by LUCIO JUAN on 01/21/23 [facility] Patrick 01-17-2023 ALCIDESN Telephone ([facility]) ADINA DAVID ([id number]) 1955 M Date Time Provider Department 01/17/23 ULISES RAMOS During your visit today, we recorded the following information about you: Marielos Schwartz 01/17/2023 9:17 AM Signed MRO faxed and placed in scanned bin Allergies As of Date: 01/17/2023 Noted Allergy Reaction DOXYCYCLINE 07/17/2021 5 - Intolerance Comments: Rash, diarrhea PENICILLIN 02/22/2017 4 - Hives PENICILLIN V POTASSIUM 12/20/2021 14 - Other: See Comments Date Reviewed: 12/19/2022 Reviewed by: Halle Dale MD - Fully Assessed Reason for Visit: Release Of Medical Records [2017] Cmt: [facility] Prescriptions as of 01/17/2023 - nuzrmuxurrc-smenirmhw-a ilanter (TRELEGY ELLIPTA) 100-62.5-25 mcg inhalation powder Inhale 1 Puff as instructed once daily. - metoprolol tartrate, short acting, (LOPRESSOR) 25 mg tablet Take half a tablet by mouth twice daily. - enoxaparin (LOVENOX) 40 mg/0.4 mL Inject 0.4 mL subcutaneously every 24 hours. - hydroxyurea (HYDREA) 500 mg capsule Take 2 capsules by mouth once daily. - sodium bicarbonate 650 mg tablet Take 1 tablet by mouth twice daily. - roflumilast (DALIRESP) 500 mcg tab Take 1 tablet by mouth every afternoon. - omeprazole (PRILOSEC) 40 mg capsule Take 1 capsule by mouth once daily - zolpidem (AMBIEN) 5 mg tablet Take 1 tablet by mouth at bedtime as needed for up to 90 days. - evolocumab (REPATHA SURECLICK) 140 mg/mL pen injector Inject 140 mg subcutaneously every 2 weeks. - magnesium oxide (MAG-OX) 400 mg (241.3 mg magnesium) tablet Take 0.5 tablets by mouth once daily. 0.5 tablet - CPAP - BABY ASPIRIN ORAL Take 81 mg by mouth once daily. - ergocalciferol 50,000 unit capsule (VITAMIN D2, DRISDOL) once every month. Problem List As Of Date 01/17/2023 Noted Resolved Multiple lipomas [D17.9] GERD (gastroesophageal reflux disease) [K21.9] H/O resection of large bowel [Z90.49] 04/14/2004 Essential hypertension [I10] Renal cancer, right (HCC) [C64.1] 04/29/2017 CLL (chronic lymphocytic leukemia) (HCC) [C91.1*06/13/2017 Iron deficiency anemia [D50.9] 06/13/2017 Iron adverse reaction [T45.4X5A] 10/24/2017 Frequency of urination [R35.0] 03/19/2018 02/11/2019 Nocturia [R35.1] 03/19/2018 BPH (benign prostatic hyperplasia) [N40.0] 10/05/2018 History of right nephrectomy [Z90.5] 10/05/2018 NSTEMI (non-ST elevated myocardial infarction) *10/24/2018 Stage 2 chronic kidney disease [N18.2] 11/10/2018 Post PTCA [Z98.61] 11/25/2018 S/P drug eluting coronary stent placement [Z95.*11/25/2018 GI bleed [K92.2] 12/31/2018 01/11/2019 Hypertriglyceridemia [E78.1] 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.* 01/11/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] DENG (acute kidney injury) (HCC) [N17.9] 01/07/2019 Facial numbness [R20.0] 03/31/2019 04/03/2019 Leukocytosis [D72.829] 03/31/2019 Essential thrombocythemia (HCC) [D47.3] 03/31/2019 CKD (chronic kidney disease) stage 3, GFR 30-59*03/31/2019 Closed left subtrochanteric femur fracture (HCC*07/22/2020 07/27/2020 Deep vein thrombosis (DVT) of femoral vein of l*03/14/2021 Leg swelling [M79.89] 03/14/2021 CIRA on CPAP [G47.33] 05/01/2021 Severe anemia [D64.9] 05/02/2021 Severe protein-calorie malnutrition (HCC) [E43] 05/09/2021 Acute blood loss anemia [D62] 05/16/2021 COVID-19 virus infection [U07.1] 05/16/2021 Obesity, Class I, BMI 30-34.9 [E66.9] 05/28/2021 Vitamin D deficiency [E55.9] 07/17/2021 Iron deficiency anemia due to chronic blood los*02/19/2022 SOB (shortness of breath) [R06.02] 11/27/2022 Lightheadedness [R42] 11/27/2022 Pulmonary embolism, unspecified chronicity, uns*12/01/2022 Coronary artery disease involving [place]*12/02/2022 Other emphysema (HCC) [J43.8] 12/02/2022 Chronic deep vein thrombosis (DVT) of proximal *12/02/2022 AVM (arteriovenous malformation) [Q27.30] 12/02/2022 History of gastrointestinal bleeding [Z87.19] 12/02/2022 Tachycardia [R00.0] 12/03/2022 Elevated troponin [R79.89] 12/03/2022 12/11/2022 Pulmonary nodules [R91.8] 12/05/2022 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 medical conditio*12/09/2022 Personal history of DVT (deep vein thrombosis) *12/11/2022 Anticoagulation management encounter [Z51.81, Z*12/11/2022 Primary insomnia [F51.01] 12/13/2022 Encounter Status:Closed by MARIELOS SCHWARTZ on 01/17/23 [facility] Patrick 01-10-2023 ESTHER Telephone (HEMSTOW) ADINA DAVID ([id number]) 1955 M Date Time Provider Department 01/10/23 HALLE DALE HEMAGUIRRE During your visit today, we recorded the following information about you: Quentin Chavira RN 01/10/2023 3:33 PM Signed Call transfer received from Roland Ureña said pt needs handicap placard ordered on 12/19/22 (pending) to be sent to [facility] via fax at the request of the [employer] artist's representative on the line then transferred the call over. Messaged o and m supervisor TRAVON Cooney if ok to send Placard order to [facility] at pt's request. Ivet said ok. Placard sent to [facility] at their fax number as requested. 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 - dennuufvfyl-wzohkkcru-s ilanter (TRELEGY ELLIPTA) 100-62.5-25 mcg inhalation powder Inhale 1 Puff as instructed once daily. - metoprolol tartrate, short acting, (LOPRESSOR) 25 mg tablet Take half a tablet by mouth twice daily. - enoxaparin (LOVENOX) 40 mg/0.4 mL Inject 0.4 mL subcutaneously every 24 hours. - hydroxyurea (HYDREA) 500 mg capsule Take 2 capsules by mouth once daily. - sodium bicarbonate 650 mg tablet Take 1 tablet by mouth twice daily. - roflumilast (DALIRESP) 500 mcg tab Take 1 tablet by mouth every afternoon. - omeprazole (PRILOSEC) 40 mg capsule Take 1 capsule by mouth once daily - zolpidem (AMBIEN) 5 mg tablet Take 1 tablet by mouth at bedtime as needed for up to 90 days. - evolocumab (REPATHA SURECLICK) 140 mg/mL pen injector Inject 140 mg subcutaneously every 2 weeks. - magnesium oxide (MAG-OX) 400 mg (241.3 mg magnesium) tablet Take 0.5 tablets by mouth once daily. 0.5 tablet - CPAP - BABY ASPIRIN ORAL Take 81 mg by mouth once daily. - ergocalciferol 50,000 unit capsule (VITAMIN D2, DRISDOL) once every month. Problem List As Of Date 01/10/2023 Noted Resolved Multiple lipomas [D17.9] GERD (gastroesophageal reflux disease) [K21.9] H/O resection of large bowel [Z90.49] 04/14/2004 Essential hypertension [I10] Renal cancer, right (HCC) [C64.1] 04/29/2017 CLL (chronic lymphocytic leukemia) ([facility]) [C91.1*06/13/2017 Iron deficiency anemia [D50.9] 06/13/2017 Iron adverse reaction [T45.4X5A] 10/24/2017 Frequency of urination [R35.0] 03/19/2018 02/11/2019 Nocturia [R35.1] 03/19/2018 BPH (benign prostatic hyperplasia) [N40.0] 10/05/2018 History of right nephrectomy [Z90.5] 10/05/2018 NSTEMI (non-ST elevated myocardial infarction) *10/24/2018 Stage 2 chronic kidney disease [N18.2] 11/10/2018 Post PTCA [Z98.61] 11/25/2018 S/P drug eluting coronary stent placement [Z95.*11/25/2018 GI bleed [K92.2] 12/31/2018 01/11/2019 Hypertriglyceridemia [E78.1] 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.* 01/11/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] DENG (acute kidney injury) (HCC) [N17.9] 01/07/2019 Facial numbness [R20.0] 03/31/2019 04/03/2019 Leukocytosis [D72.829] 03/31/2019 Essential thrombocythemia (HCC) [D47.3] 03/31/2019 CKD (chronic kidney disease) stage 3, GFR 30-59*03/31/2019 Closed left subtrochanteric femur fracture (HCC*07/22/2020 07/27/2020 Deep vein thrombosis (DVT) of femoral vein of l*03/14/2021 Leg swelling [M79.89] 03/14/2021 CIRA on CPAP [G47.33] 05/01/2021 Severe anemia [D64.9] 05/02/2021 Severe protein-calorie malnutrition (HCC) [E43] 05/09/2021 Acute blood loss anemia [D62] 05/16/2021 COVID-19 virus infection [U07.1] 05/16/2021 Obesity, Class I, BMI 30-34.9 [E66.9] 05/28/2021 Vitamin D deficiency [E55.9] 07/17/2021 Iron deficiency anemia due to chronic blood los*02/19/2022 SOB (shortness of breath) [R06.02] 11/27/2022 Lightheadedness [R42] 11/27/2022 Pulmonary embolism, unspecified chronicity, uns*12/01/2022 Coronary artery disease involving [place]*12/02/2022 Other emphysema (HCC) [J43.8] 12/02/2022 Chronic deep vein thrombosis (DVT) of proximal *12/02/2022 AVM (arteriovenous malformation) [Q27.30] 12/02/2022 History of gastrointestinal bleeding [Z87.19] 12/02/2022 Tachycardia [R00.0] 12/03/2022 Elevated troponin [R77.8] 12/03/2022 12/11/2022 Pulmonary nodules [R91.8] 12/05/2022 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 medical conditio*12/09/2022 Personal history of DVT (deep vein thrombosis) *12/11/2022 Anticoagulation management encounter [Z51.81, Z*12/11/2022 Primary insomnia [F51.01] 12/13/2022 Encounter Status:Closed by QUENTIN CHAVIRA on 01/10/23 [facility] Patrick 01-03-2023 ESTHER Telephone (HEMSTOW) ADINA DAVID ([id number]) 1955 M Date Time Provider Department 01/03/23 [facility] During your visit today, we recorded the following information about you: Quentin Chavira, RN 01/03/2023 4:04 PM Signed Pt needs rescheduled (Appointment date 03/05/23) due to Dr Halle Dale schedule change. Pt unavailable at home phone. Left message on [facility] for return call. 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 - jbeikettelj-bvbhavajr-j ilanter (TRELEGY ELLIPTA) 100-62.5-25 mcg inhalation powder Inhale 1 Puff as instructed once daily. - metoprolol tartrate, short acting, (LOPRESSOR) 25 mg tablet Take half a tablet by mouth twice daily. - enoxaparin (LOVENOX) 40 mg/0.4 mL Inject 0.4 mL subcutaneously every 24 hours. - hydroxyurea (HYDREA) 500 mg capsule Take 2 capsules by mouth once daily. - sodium bicarbonate 650 mg tablet Take 1 tablet by mouth twice daily. - roflumilast (DALIRESP) 500 mcg tab Take 1 tablet by mouth every afternoon. - omeprazole (PRILOSEC) 40 mg capsule Take 1 capsule by mouth once daily - zolpidem (AMBIEN) 5 mg tablet Take 1 tablet by mouth at bedtime as needed for up to 90 days. - evolocumab (REPATHA SURECLICK) 140 mg/mL pen injector Inject 140 mg subcutaneously every 2 weeks. - magnesium oxide (MAG-OX) 400 mg (241.3 mg magnesium) tablet Take 0.5 tablets by mouth once daily. 0.5 tablet - CPAP - BABY ASPIRIN ORAL Take 81 mg by mouth once daily. - ergocalciferol 50,000 unit capsule (VITAMIN D2, DRISDOL) once every month. Problem List As Of Date 01/03/2023 Noted Resolved Multiple lipomas [D17.9] GERD (gastroesophageal reflux disease) [K21.9] H/O resection of large bowel [Z90.49] 04/14/2004 Essential hypertension [I10] Renal cancer, right (HCC) [C64.1] 04/29/2017 CLL (chronic lymphocytic leukemia) (HCC) [C91.1*06/13/2017 Iron deficiency anemia [D50.9] 06/13/2017 Iron adverse reaction [T45.4X5A] 10/24/2017 Frequency of urination [R35.0] 03/19/2018 02/11/2019 Nocturia [R35.1] 03/19/2018 BPH (benign prostatic hyperplasia) [N40.0] 10/05/2018 History of right nephrectomy [Z90.5] 10/05/2018 NSTEMI (non-ST elevated myocardial infarction) *10/24/2018 Stage 2 chronic kidney disease [N18.2] 11/10/2018 Post PTCA [Z98.61] 11/25/2018 S/P drug eluting coronary stent placement [Z95.*11/25/2018 GI bleed [K92.2] 12/31/2018 01/11/2019 Hypertriglyceridemia [E78.1] 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.* 01/11/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] DENG (acute kidney injury) (HCC) [N17.9] 01/07/2019 Facial numbness [R20.0] 03/31/2019 04/03/2019 Leukocytosis [D72.829] 03/31/2019 Essential thrombocythemia (HCC) [D47.3] 03/31/2019 CKD (chronic kidney disease) stage 3, GFR 30-59*03/31/2019 Closed left subtrochanteric femur fracture (HCC*07/22/2020 07/27/2020 Deep vein thrombosis (DVT) of femoral vein of l*03/14/2021 Leg swelling [M79.89] 03/14/2021 CIRA on CPAP [G47.33] 05/01/2021 Severe anemia [D64.9] 05/02/2021 Severe protein-calorie malnutrition (HCC) [E43] 05/09/2021 Acute blood loss anemia [D62] 05/16/2021 COVID-19 virus infection [U07.1] 05/16/2021 Obesity, Class I, BMI 30-34.9 [E66.9] 05/28/2021 Vitamin D deficiency [E55.9] 07/17/2021 Iron deficiency anemia due to chronic blood los*02/19/2022 SOB (shortness of breath) [R06.02] 11/27/2022 Lightheadedness [R42] 11/27/2022 Pulmonary embolism, unspecified chronicity, uns*12/01/2022 Coronary artery disease involving [place]*12/02/2022 Other emphysema (HCC) [J43.8] 12/02/2022 Chronic deep vein thrombosis (DVT) of proximal *12/02/2022 AVM (arteriovenous malformation) [Q27.30] 12/02/2022 History of gastrointestinal bleeding [Z87.19] 12/02/2022 Tachycardia [R00.0] 12/03/2022 Elevated troponin [R77.8] 12/03/2022 12/11/2022 Pulmonary nodules [R91.8] 12/05/2022 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 medical conditio*12/09/2022 Personal history of DVT (deep vein thrombosis) *12/11/2022 Anticoagulation management encounter [Z51.81, Z*12/11/2022 Primary insomnia [F51.01] 12/13/2022 Encounter Status:Closed by QUENTIN CHAVIRA on 01/03/23 Normal [facility] CNCEllie 12-30-2022 CNCO Letter Text Normal [facility] Patrick 12-30-2022 CNPN Telephone (HCSIND) ADINA DAVID ([id number]) 1955 M Date Time Provider Department 12/30/22 JENIFER LLOYDIND During your visit today, we recorded the following information about you: Jenifer Lloyd LPN 12/30/2022 11:29 AM Signed Halle Dale MD, [facility] received a referral for [facility] services. Frankie is currently inpatient at [facility]. At this time we will be canceling the referral. Thank you, Jenifer Lloyd LPN Central Admissions Intake Nurse Allergies As of Date: 12/30/2022 Noted Allergy Reaction DOXYCYCLINE 07/17/2021 5 - Intolerance Comments: Rash, diarrhea PENICILLIN 02/22/2017 4 - Hives PENICILLIN V POTASSIUM 12/20/2021 14 - Other: See Comments Date Reviewed: 12/19/2022 Reviewed by: Halle Dale MD - Fully Assessed Reason for Visit: Home Care [[id number]] Prescriptions as of 12/30/2022 - Doxepin (SILENOR) 3 mg tab Take 1 tablet by mouth daily at bedtime. - ppysapykxsr-ndgnlynlr-w ilanter (TRELEGY ELLIPTA) 100-62.5-25 mcg inhalation powder Inhale 1 Puff as instructed once daily. - metoprolol tartrate, short acting, (LOPRESSOR) 25 mg tablet Take half a tablet by mouth twice daily. - enoxaparin (LOVENOX) 40 mg/0.4 mL Inject 0.4 mL subcutaneously every 24 hours. - hydroxyurea (HYDREA) 500 mg capsule Take 2 capsules by mouth once daily. - sodium bicarbonate 650 mg tablet Take 1 tablet by mouth twice daily. - roflumilast (DALIRESP) 500 mcg tab Take 1 tablet by mouth every afternoon. - omeprazole (PRILOSEC) 40 mg capsule Take 1 capsule by mouth once daily - zolpidem (AMBIEN) 5 mg tablet Take 1 tablet by mouth at bedtime as needed for up to 90 days. - evolocumab (REPATHA SURECLICK) 140 mg/mL pen injector Inject 140 mg subcutaneously every 2 weeks. - magnesium oxide (MAG-OX) 400 mg (241.3 mg magnesium) tablet Take 0.5 tablets by mouth once daily. 0.5 tablet - CPAP - BABY ASPIRIN ORAL Take 81 mg by mouth once daily. - ergocalciferol 50,000 unit capsule (VITAMIN D2, DRISDOL) once every month. Problem List As Of Date 12/30/2022 Noted Resolved Multiple lipomas [D17.9] GERD (gastroesophageal reflux disease) [K21.9] H/O resection of large bowel [Z90.49] 04/14/2004 Essential hypertension [I10] Renal cancer, right (HCC) [C64.1] 04/29/2017 CLL (chronic lymphocytic leukemia) (HCC) [C91.1*06/13/2017 Iron deficiency anemia [D50.9] 06/13/2017 Iron adverse reaction [T45.4X5A] 10/24/2017 Frequency of urination [R35.0] 03/19/2018 02/11/2019 Nocturia [R35.1] 03/19/2018 BPH (benign prostatic hyperplasia) [N40.0] 10/05/2018 History of right nephrectomy [Z90.5] 10/05/2018 NSTEMI (non-ST elevated myocardial infarction) *10/24/2018 Stage 2 chronic kidney disease [N18.2] 11/10/2018 Post PTCA [Z98.61] 11/25/2018 S/P drug eluting coronary stent placement [Z95.*11/25/2018 GI bleed [K92.2] 12/31/2018 01/11/2019 Hypertriglyceridemia [E78.1] 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.* 01/11/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] DENG (acute kidney injury) (HCC) [N17.9] 01/07/2019 Facial numbness [R20.0] 03/31/2019 04/03/2019 Leukocytosis [D72.829] 03/31/2019 Essential thrombocythemia (HCC) [D47.3] 03/31/2019 CKD (chronic kidney disease) stage 3, GFR 30-59*03/31/2019 Closed left subtrochanteric femur fracture (HCC*07/22/2020 07/27/2020 Deep vein thrombosis (DVT) of femoral vein of l*03/14/2021 Leg swelling [M79.89] 03/14/2021 CIRA on CPAP [G47.33] 05/01/2021 Severe anemia [D64.9] 05/02/2021 Severe protein-calorie malnutrition (HCC) [E43] 05/09/2021 Acute blood loss anemia [D62] 05/16/2021 COVID-19 virus infection [U07.1] 05/16/2021 Obesity, Class I, BMI 30-34.9 [E66.9] 05/28/2021 Vitamin D deficiency [E55.9] 07/17/2021 Iron deficiency anemia due to chronic blood los*02/19/2022 SOB (shortness of breath) [R06.02] 11/27/2022 Lightheadedness [R42] 11/27/2022 Pulmonary embolism, unspecified chronicity, uns*12/01/2022 Coronary artery disease involving [place]*12/02/2022 Other emphysema (HCC) [J43.8] 12/02/2022 Chronic deep vein thrombosis (DVT) of proximal *12/02/2022 AVM (arteriovenous malformation) [Q27.30] 12/02/2022 History of gastrointestinal bleeding [Z87.19] 12/02/2022 Tachycardia [R00.0] 12/03/2022 Elevated troponin [R77.8] 12/03/2022 12/11/2022 Pulmonary nodules [R91.8] 12/05/2022 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 medical conditio*12/09/2022 Personal history of DVT (deep vein thrombosis) *12/11/2022 Anticoagulation management encounter [Z51.81, Z*12/11/2022 Primary insomnia [F51.01] 12/13/2022 Encounter Status:Closed by JENIFER LLOYD on 12/30/22 [facility] Patrick 12-27-2022 CNPN Telephone (HCSIND) ADINA DAVID ([id number]) 1955 M Date Time Provider Department 12/27/22 IONA LEYVA During your visit today, we recorded the following information about you: Jenifer Lloyd LPN 12/27/2022 4:56 PM Signed Called patient's cell; no answer and left message to call back. Jenifer Lloyd LPN [facility] Admissions Intake Nurse Jenifer Lloyd LPN 12/27/2022 5:05 PM Signed Called daughter's cell; no answer and left message to call back. Jenifer Lloyd LPN [facility]missions Intake Nurse Loraine Talbot LPN 12/28/2022 1:45 PM Signed Vm left at the following requesting call back to confirm [facility] [phone] PARTH Dawkins Lisa, LPN 12/29/2022 11:34 AM Signed Vm left at the following requesting call back to confirm [facility] [phone] Loraine Talbot LPN Allergies As of Date: 12/27/2022 Noted Allergy Reaction DOXYCYCLINE 07/17/2021 5 - Intolerance Comments: Rash, diarrhea PENICILLIN 02/22/2017 4 - Hives PENICILLIN V POTASSIUM 12/20/2021 14 - Other: See Comments Date Reviewed: 12/19/2022 Reviewed by: Halle Dale MD - Fully Assessed Reason for Visit: Home Care [[id number]] Cmt: Confirmation Call Prescriptions as of 12/30/2022 - Doxepin (SILENOR) 3 mg tab Take 1 tablet by mouth daily at bedtime. - urhobimfboc-risjiolgy-d ilanter (TRELEGY ELLIPTA) 100-62.5-25 mcg inhalation powder Inhale 1 Puff as instructed once daily. - metoprolol tartrate, short acting, (LOPRESSOR) 25 mg tablet Take half a tablet by mouth twice daily. - enoxaparin (LOVENOX) 40 mg/0.4 mL Inject 0.4 mL subcutaneously every 24 hours. - hydroxyurea (HYDREA) 500 mg capsule Take 2 capsules by mouth once daily. - sodium bicarbonate 650 mg tablet Take 1 tablet by mouth twice daily. - roflumilast (DALIRESP) 500 mcg tab Take 1 tablet by mouth every afternoon. - omeprazole (PRILOSEC) 40 mg capsule Take 1 capsule by mouth once daily - zolpidem (AMBIEN) 5 mg tablet Take 1 tablet by mouth at bedtime as needed for up to 90 days. - evolocumab (REPATHA SURECLICK) 140 mg/mL pen injector Inject 140 mg subcutaneously every 2 weeks. - magnesium oxide (MAG-OX) 400 mg (241.3 mg magnesium) tablet Take 0.5 tablets by mouth once daily. 0.5 tablet - CPAP - BABY ASPIRIN ORAL Take 81 mg by mouth once daily. - ergocalciferol 50,000 unit capsule (VITAMIN D2, DRISDOL) once every month. Problem List As Of Date 12/27/2022 Noted Resolved Multiple lipomas [D17.9] GERD (gastroesophageal reflux disease) [K21.9] H/O resection of large bowel [Z90.49] 04/14/2004 Essential hypertension [I10] Renal cancer, right (HCC) [C64.1] 04/29/2017 CLL (chronic lymphocytic leukemia) (HCC) [C91.1*06/13/2017 Iron deficiency anemia [D50.9] 06/13/2017 Iron adverse reaction [T45.4X5A] 10/24/2017 Frequency of urination [R35.0] 03/19/2018 02/11/2019 Nocturia [R35.1] 03/19/2018 BPH (benign prostatic hyperplasia) [N40.0] 10/05/2018 History of right nephrectomy [Z90.5] 10/05/2018 NSTEMI (non-ST elevated myocardial infarction) *10/24/2018 Stage 2 chronic kidney disease [N18.2] 11/10/2018 Post PTCA [Z98.61] 11/25/2018 S/P drug eluting coronary stent placement [Z95.*11/25/2018 GI bleed [K92.2] 12/31/2018 01/11/2019 Hypertriglyceridemia [E78.1] 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.* 01/11/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] DENG (acute kidney injury) (HCC) [N17.9] 01/07/2019 Facial numbness [R20.0] 03/31/2019 04/03/2019 Leukocytosis [D72.829] 03/31/2019 Essential thrombocythemia (HCC) [D47.3] 03/31/2019 CKD (chronic kidney disease) stage 3, GFR 30-59*03/31/2019 Closed left subtrochanteric femur fracture (HCC*07/22/2020 07/27/2020 Deep vein thrombosis (DVT) of femoral vein of l*03/14/2021 Leg swelling [M79.89] 03/14/2021 CIRA on CPAP [G47.33] 05/01/2021 Severe anemia [D64.9] 05/02/2021 Severe protein-calorie malnutrition (HCC) [E43] 05/09/2021 Acute blood loss anemia [D62] 05/16/2021 COVID-19 virus infection [U07.1] 05/16/2021 Obesity, Class I, BMI 30-34.9 [E66.9] 05/28/2021 Vitamin D deficiency [E55.9] 07/17/2021 Iron deficiency anemia due to chronic blood los*02/19/2022 SOB (shortness of breath) [R06.02] 11/27/2022 Lightheadedness [R42] 11/27/2022 Pulmonary embolism, unspecified chronicity, uns*12/01/2022 Coronary artery disease involving [place]*12/02/2022 Other emphysema (HCC) [J43.8] 12/02/2022 Chronic deep vein thrombosis (DVT) of proximal *12/02/2022 AVM (arteriovenous malformation) [Q27.30] 12/02/2022 History of gastrointestinal bleeding [Z87.19] 12/02/2022 Tachycardia [R00.0] 12/03/2022 Elevated troponin [R77.8] 12/03/2022 12/11/2022 Pulmonary nodules [R91.8] 12/05/2022 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 medical conditio*12/09/2022 Personal history of DVT (deep vein thrombosis) *12/11/2022 Anticoagulation management encounter [Z51.81, Z*12/11/2022 Vivi (more content not included)... Normal [facility] BioFire PCR Stool Pathogens (GI Panel)on 12-25-2022 Adenovirus F 40/41 Not detected Normal NOT DETECTED [facility] Comment on above: Order Comment: GI Pa yaneth for: Clostridium Difficile, Stool Culture , Ova/Parasite, Giardia/Crypto, Shiga Toxin Performed By: #### B IOGI #### [facility] [address] [place], [place] [id number] Antibiotic [facility] Comment on above: Order Comment: GI Pa yaneth for: Clostridium Difficile, Stool Culture , Ova/Parasite, Giardia/Crypto, Shiga Toxin Performed By: #### B IOGI #### [facility] [address] [place], [place] [id number] Astrovirus Not detected Normal NOT DETECTED [facility] Comment on above: Order Comment: GI Pa yaneth for: Clostridium Difficile, Stool Culture , Ova/Parasite, Giardia/Crypto, Shiga Toxin Performed By: #### B IOGI #### [facility] [address] [place] [address] Bacteria identified Cx Nom (Unsp spec) < BACTERIA > Normal [facility] Comment on above: Order Comment: GI Pa yaneth for: Clostridium Difficile, Stool Culture , Ova/Parasite, Giardia/Crypto, Shiga Toxin Performed By: #### B IOGI #### [facility] [address] [place], [place] [id number] C. difficile tox A/B Not detected Normal NOT DETECTED [facility] Comment on above: Order Comment: GI Pa yaneth for: Clostridium Difficile, Stool Culture , Ova/Parasite, Giardia/Crypto, Shiga Toxin Performed By: #### B IOGI #### [facility] [address] [place], [place] [id number] Campylobacter Not detected Normal NOT DETECTED [facility] Comment on above: Order Comment: GI Pa yaneth for: Clostridium Difficile, Stool Culture , Ova/Parasite, Giardia/Crypto, Shiga Toxin Performed By: #### B IOGI #### [facility] [address] [place], [place] [id number] Cryptosporidium Not detected Normal NOT DETECTED [facility] Comment on above: Order Comment: GI Pa yaneth for: Clostridium Difficile, Stool Culture , Ova/Parasite, Giardia/Crypto, Shiga Toxin Performed By: #### B IOGI #### [facility] [address] [place], [place] [id number] Cyclospora Not detected Normal NOT DETECTED [facility] Comment on above: Order Comment: GI Pa yaneth for: Clostridium Difficile, Stool Culture , Ova/Parasite, Giardia/Crypto, Shiga Toxin Performed By: #### B IOGI #### [facility] [address] [place] [address] Diar E. coli/Shig < DIARRHEAGENIC E. C TORRES / SHIGELLA > Normal [facility] Comment on above: Order Comment: GI Pa yaneth for: Clostridium Difficile, Stool Culture , Ova/Parasite, Giardia/Crypto, Shiga Toxin Performed By: #### B IOGI #### [facility] [address] [place] [address] E. coli (EAEC) Not detected Normal NOT DETECTED [facility] Comment on above: Order Comment: GI Pa yaneth for: Clostridium Difficile, Stool Culture , Ova/Parasite, Giardia/Crypto, Shiga Toxin Performed By: #### B IOGI #### [facility] [address] [place] [address] E. coli (EPEC) Not detected Normal NOT DETECTED [facility] Comment on above: Order Comment: GI Pa yaneth for: Clostridium Difficile, Stool Culture , Ova/Parasite, Giardia/Crypto, Shiga Toxin Performed By: #### B IOGI #### [facility] [address] [place] [address] E. coli (ETEC) Not detected Normal NOT DETECTED [facility] Comment on above: Order Comment: GI Pa yaneth for: Clostridium Difficile, Stool Culture , Ova/Parasite, Giardia/Crypto, Shiga Toxin Performed By: #### B IOGI #### [facility] [address] [place] [address] E. coli (STEC) Not detected Normal NOT DETECTED [facility] Comment on above: Order Comment: GI Pa yaneth for: Clostridium Difficile, Stool Culture , Ova/Parasite, Giardia/Crypto, Shiga Toxin Performed By: #### B IOGI #### [facility] [address] [place] [address] E. coli O157 N/A Normal NOT DETECTED [facility] Comment on above: Order Comment: GI Pa yaneth for: Clostridium Difficile, Stool Culture , Ova/Parasite, Giardia/Crypto, Shiga Toxin Performed By: #### B IOGI #### [facility] [address] [place] [address] E. histolytica Not detected Normal NOT DETECTED [facility] Comment on above: Order Comment: GI Pa yaneth for: Clostridium Difficile, Stool Culture , Ova/Parasite, Giardia/Crypto, Shiga Toxin Performed By: #### B IOGI #### [facility] [address] [place] [address] GI Pathogens Sum ----- GASTROINTESTIN AL PATHOGENS SUMMARY ----- [facility] Comment on above: Order Comment: GI Pa yaneth for: Clostridium Difficile, Stool Culture , Ova/Parasite, Giardia/Crypto, Shiga Toxin Performed By: #### B IOGI #### [facility] [address] [place] [address] Giardia lamblia Not detected Normal NOT DETECTED [facility] Comment on above: Order Comment: GI Pa yaneth for: Clostridium Difficile, Stool Culture , Ova/Parasite, Giardia/Crypto, Shiga Toxin Performed By: #### B IOGI #### [facility] [address] [place] [address] Indiv PCR Results ----- INDIVIDUAL PCR RESULTS ----- [facility] Comment on above: Order Comment: GI Pa yaneth for: Clostridium Difficile, Stool Culture , Ova/Parasite, Giardia/Crypto, Shiga Toxin Performed By: #### B IOGI #### [facility] [address] [place] [address] Norovirus GI/GII Not detected Normal NOT DETECTED [facility] Comment on above: Order Comment: GI Pa yaneth for: Clostridium Difficile, Stool Culture , Ova/Parasite, Giardia/Crypto, Shiga Toxin Performed By: #### B IOGI #### [facility] [address] [place] [address] P. shigelloides Not detected Normal NOT DETECTED [facility] Comment on above: Order Comment: GI Pa yaneth for: Clostridium Difficile, Stool Culture , Ova/Parasite, Giardia/Crypto, Shiga Toxin Performed By: #### B IOGI #### [facility] [address] [place], [place] [id number] Parasites < PARASITES > Normal [facility] Comment on above: Order Comment: GI Pa yaneth for: Clostridium Difficile, Stool Culture , Ova/Parasite, Giardia/Crypto, Shiga Toxin Performed By: #### B IOGI #### [facility] [address] [place] [address] Pathogens Detected Detected Normal NOT DETECTED [facility] Comment on above: Order Comment: GI Pa yaneth for: Clostridium Difficile, Stool Culture , Ova/Parasite, Giardia/Crypto, Shiga Toxin Performed By: #### B IOGI #### [facility] [address] [place] [address] Pathogens Detected Normal NOT DETECTED [facility] Comment on above: Order Comment: GI Pa yaneth for: Clostridium Difficile, Stool Culture , Ova/Parasite, Giardia/Crypto, Shiga Toxin Performed By: #### B IOGI #### [facility] [address] [place], [place] [id number] Rotavirus A Not detected Normal NOT DETECTED [facility] Comment on above: Order Comment: GI Pa yaneth for: Clostridium Difficile, Stool Culture , Ova/Parasite, Giardia/Crypto, Shiga Toxin Performed By: #### B IOGI #### [facility] [address] [place], [place] [id number] Salmonella Not detected Normal NOT DETECTED [facility] Comment on above: Order Comment: GI Pa yaneth for: Clostridium Difficile, Stool Culture , Ova/Parasite, Giardia/Crypto, Shiga Toxin Performed By: #### B IOGI #### [facility] [address] [place] [address] Sapovirus Not detected Normal NOT DETECTED [facility] Comment on above: Order Comment: GI Pa yaneth for: Clostridium Difficile, Stool Culture , Ova/Parasite, Giardia/Crypto, Shiga Toxin Performed By: #### B IOGI #### [facility] [address] [place] [address] Shig/E. coli (EIEC) Not detected Normal NOT DETECTED [facility] Comment on above: Order Comment: GI Pa yaneth for: Clostridium Difficile, Stool Culture , Ova/Parasite, Giardia/Crypto, Shiga Toxin Performed By: #### B IOGI #### [facility] [address] [place] [address] Vibrio Not detected Normal NOT DETECTED [facility] Comment on above: Order Comment: GI Pa yaneth for: Clostridium Difficile, Stool Culture , Ova/Parasite, Giardia/Crypto, Shiga Toxin Performed By: #### B IOGI #### [facility] [address] [place] [address] Vibrio cholerae Not detected Normal NOT DETECTED [facility] Comment on above: Order Comment: GI Pa yaneth for: Clostridium Difficile, Stool Culture , Ova/Parasite, Giardia/Crypto, Shiga Toxin Performed By: #### B IOGI #### [facility] [address] [place] [address] Viruses < VIRUSES > [facility] Comment on above: Order Comment: GI Pa yaneth for: Clostridium Difficile, Stool Culture , Ova/Parasite, Giardia/Crypto, Shiga Toxin Performed By: #### B IOGI #### [facility] [address] [place] [address] Yersinia Not detected Normal NOT DETECTED [facility] Comment on above: Order Comment: GI Pa yaneth for: Clostridium Difficile, Stool Culture , Ova/Parasite, Giardia/Crypto, Shiga Toxin Performed By: #### B IOGI #### [facility] [address] [place] [address] Pneumocystis jirovecii DFAon 12-25-2022 Result/Comment SEE BELOW [facility] Comment on above: Result Comment: Pneu mocystis jirovecii (P. carinii), DFA SOURCE : SPUTUM Result/Comment: Not Detected Reference Range: Not Detected Test Performed by Nadir Christy, [facility], [address] [place] [address] Bassam Light M.D., Ph.D., Director of Laboratories , CLIA [id number] Performed By: #### P CDFA #### [facility] [address], [place] [address] XR Chest 1 view-Mobileon XR Chest 1 view-Mobile PORTABLE CHEST: CLINICAL INDICATION: R06.02: SHORTNESS OF BREATH [id number]: Cough TECHNIQUE: Portable AP COMPARISON: 12/20/2022 FINDINGS: The cardiac and mediastinal silhouettes are normal. There is a 6.3 cm area of rounded consolidation in the right midlung zone. The costophrenic angles are sharp. Degenerative change of the thoracic spine is noted. IMPRESSION: Rounded consolidation in the right midlung zone, slightly decreased from the prior exam, and likely representing pneumonia. Recommend follow-up chest radiograph in 6-8 weeks to assess for resolution. Report Dictated on Authenticated by: Bismark Burton On: 12/22/2022 06:44 Read by: BISMARK BURTON MD, Date: 12/22/2022 06:44 [facility] .CBC Path Reviewon CBC Path Review Marked macrocytic anemia and marked leukocytosis with marked atypical absolute lymphocytosis and several smudge cells, suspicious for lymphoproliferative disorder. Myeloid left shift with some toxic changes also noted. Rule out infection. Rule out blood loss. Suggest further hematologic evaluation if clinically indicated. Normal [facility] ([place]) Comment on above: Result Comment: Elec tronically signed by: MAGNOLIA YANG 12.20.2022 17:10 EDT Performed By: #### C MP, TROPHS, GFR, CBC, CBCPR, LAC, PRO, DIFF, MDW ####[facility] [place] [id number]#### MORPH, APTT ####[facility] [address] [place], [place] [address] BCIDon 12-20-2022 Acinetobacter kentrell-baumanii complex Not detected Normal Not Detected [facility] ([place]) Comment on above: Performed By: #### B PIETER ####[facility] [address] [place] [address] Bacteroides fragilis Not detected Normal Not Detected [facility] ([place]) Comment on above: Performed By: #### B PIETER ####[facility] [address] [place], [place] [address] BCID Comment See Comment Normal [facility] ([place]) Comment on above: Result Comment: Anti microbial resistance can occur via multiple mechanisms. A Not Detected result for antimicrobial resistance gene(s) does not indicate antimicrobial susceptibility. Culture identification and susceptibility results to follow. If BCID panel was negative ( Not Detected ) for all targets, this does not exclude a blood stream infection. Our blood culture system detected growth. Culture identification and susceptibility testing (if appropriate) to follow. Performed By: #### B PIETER ####[facility] [address] [place], [place] [address] Barbara albicans Not detected Normal Not Detected [facility] ([place]) Comment on above: Performed By: #### B PIETER ####[facility] [address] [place], [place] [address] Barbara auris Not detected Normal Not Detected [facility] ([place]) Comment on above: Performed By: #### B PIETER ####[facility] [address] [place], [place] [address] Barbara glabrata Not detected Normal Not Detected [facility] ([place]) Comment on above: Performed By: #### B PIETER ####[facility] [address] [place], [place] [address] Barbara krusei Not detected Normal Not Detected [facility] ([place]) Comment on above: Performed By: #### B PIETER ####[facility] [address] [place], [place] [address] Barbara parapsilosis Not detected Normal Not Detected [facility] ([place]) Comment on above: Performed By: #### B PIETER ####[facility] [address] [place], [place] [address] Barbara tropicalis Not detected Normal Not Detected [facility] ([place]) Comment on above: Performed By: #### B PIETER ####[facility] [place], [place] [address] Cryptococcus neoformans-gattii Not detected Normal Not Detected [facility] ([place]) Comment on above: Performed By: #### B PIETER ####[facility] [place], [place] [address] CTX-M (ESBL) Not Applicable Normal Not Detected [facility] ([place]) Comment on above: Performed By: #### B PIETER ####[facility] [address] [place], [place] [address] E. Coli Not detected Normal Not Detected [facility] ([place]) Comment on above: Performed By: #### B PIETER ####[facility] [address] [place], [place] [address] Enterobacter cloacae Complex Not detected Normal Not Detected [facility] ([place]) Comment on above: Performed By: #### B PIETER ####[facility] [address] [place], [place] [address] Enterobacterales Not detected Normal Not Detected [facility] ([place]) Comment on above: Performed By: #### B PIETER ####[facility] [address] [place] [phone] Enterococcus faecalis Not detected Normal Not Detected [facility] ([place]) Comment on above: Performed By: #### B PIETER ####[facility] [address] [place], [place] [address] Enterococcus faecium Not detected Normal Not Detected [facility] ([place]) Comment on above: Performed By: #### B PIETER ####[facility]ains[address] [place] [phone] Haemophilus influenzae Not detected Normal Not Detected [facility] ([place]) Comment on above: Performed By: #### B PIETER ####[facility] [address] [place], [place] [address] IMP (Carbapenemase) Not Applicable Normal Not Detected [facility] ([place]) Comment on above: Performed By: #### B PIETER ####[facility] [address] [place], [place] [address] Klebsiella aerogenes Not detected Normal Not Detected [facility] ([place]) Comment on above: Performed By: #### B PIETER ####[facility] [address] [place], [place] [address] Klebsiella oxytoca Not detected Normal Not Detected [facility] ([place]) Comment on above: Performed By: #### B PIETER ####[facility] [address] [place], [place] [address] Klebsiella pneumoniae group Not detected Normal Not Detected [facility] ([place]) Comment on above: Performed By: #### B PIETER ####[facility] [address] [place] [address] KPC (Carbapenemase) Not Applicable Normal Not Detected [facility] ([place]) Comment on above: Performed By: #### B PIETER ####[facility] [address] [place] [address] Listeria monocytogenes Not detected Normal Not Detected [facility] ([place]) Comment on above: Performed By: #### B PIETER ####[facility] [address] [place] [address] MCR-1 (Colistin Resistance) Not Applicable Normal Not Detected [facility] ([place]) Comment on above: Performed By: #### B PIETER ####[facility] [address] [place] [address] Mec A/C Not Applicable Normal Not Detected [facility] ([place]) Comment on above: Performed By: #### B PIETER ####[facility] [address] [place] [phone] Mec A/C-MREJ (MRSA) Not Applicable Normal Not Detected [facility] ([place]) Comment on above: Performed By: #### B PIETER ####[facility] [address] [place] [phone] NDM (Carbapenemase) Not Applicable Normal Not Detected [facility] ([place]) Comment on above: Performed By: #### B PIETER ####[facility] [address] [place] [phone] Neisseria meningitidis (Encapsalated) Not detected Normal Not Detected [facility] ([place]) Comment on above: Performed By: #### B PIETER ####[facility] [address] [place] [address] OXA-48 like (Carbapenemase) Not Applicable Normal Not Detected [facility] ([place]) Comment on above: Performed By: #### B PIETER ####[facility] [place], [place] [address] Proteus Not detected Normal Not Detected [facility] ([place]) Comment on above: Performed By: #### B PIETER ####[facility] [address] [place] [phone] Pseudomonas aeruginosa Not detected Normal Not Detected [facility] ([place]) Comment on above: Performed By: #### B PIETER ####[facility] [place] [address] S. agalactiae Org specific cx Ql (Vag fld) Not detected Normal Not Detected [facility] ([place]) Comment on above: Performed By: #### B PIETER ####[facility] [place] [address] Salmonella species Not detected Normal Not Detected [facility] ([place]) Comment on above: Performed By: #### B PIETER ####[facility] [place] [phone] Serratia marcescens Not detected Normal Not Detected [facility] ([place]) Comment on above: Performed By: #### B PIETER ####[facility] [address] [place] [phone] Staphylococcus Not detected Normal Not Detected [facility] ([place]) Comment on above: Performed By: #### B PIETER ####[facility] [address] [place] [phone] Staphylococcus aureus Not detected Normal Not Detected [facility] ([place]) Comment on above: Result Comment: If S taphylococcus aureus is Detected , an Infectious Disease physician consult is required on identification. Performed By: #### B PIETER ####[facility] [address] [place] [phone] Staphylococcus epidermidis Not detected Normal Not Detected [facility] ([place]) Comment on above: Performed By: #### B PIETER ####[facility]ainisabelle [address] [place] [address] Staphylococcus lugdunensis Not detected Normal Not Detected [facility] ([place]) Comment on above: Performed By: #### B PIETER ####[facility] [address] [place] [address] Stenotrophomonas maltophilia Not detected Normal Not Detected [facility] ([place]) Comment on above: Performed By: #### B PIETER ####[facility] [address] [place] [address] Streptococcus Detected Abnormal Not Detected [facility] ([place]) Comment on above: Performed By: #### B PIETER ####[facility] [address] [place] [address] Streptococcus pneumoniae Detected Abnormal Not Detected [facility] ([place]) Comment on above: Performed By: #### B PIETER ####[facility] [address] [place] [address] Streptococcus pyogenes Not detected Normal Not Detected [facility] ([place]) Comment on above: Performed By: #### B PIETER ####[facility] [address] [place] [address] Van A/B Not Applicable Normal Not Detected [facility] ([place]) Comment on above: Performed By: #### B PIETER ####[facility] [address] [place] [address] VIM (Carbapenemase) Not Applicable Normal Not Detected [facility] ([place]) Comment on above: Performed By: #### B PIETER ####[facility] [address] [place] [address] CNPAraceli 12-20-2022 CNPN Telephone (HCSIND) ADINA DAVID ([id number]) 1955 Date Time Provider Department 12/20/22 HALLE DALE During your visit today, we recorded the following information about you: Sue Raygoza LPN 12/20/2022 6:[address] Dale, Thank you for the referral for Adina to [facility] with [facility]. In reviewing your office note, he is has respiratory symptoms that could use nursing intervention and on going assessment. Would you be agreeable to adding SN to the order as well as the diagnosis the CLL (chronic lymphocytic leukemia) (HCC)? Thank you, PARTH Navarro Theresa L, LPN 12/23/2022 5:[address] Dale, Thank you for the referral for Adina to [facility] with [facility]. In reviewing your office note, he is has respiratory symptoms that could use nursing intervention and on going assessment. Would you be agreeable to adding SN to the order as well as the diagnosis the CLL (chronic lymphocytic leukemia) (HCC)? Thank you, PARTH Navarro Fang, MD 12/24/2022 8:23 AM Signed Order for SN is added. Thank you Halle Dale MD 12/24/2022 8:23 AM Signed Addended by: HALLE DALE on: 12/24/2022 08:23 AM Modules accepted: Orders Sue Raygoza LPN 12/25/2022 7:[address] Dale, Thank you for adding the SN to the order. The order is now referring to an office visit that is taking place today. Can you please update to 12/18/22 and include SN and PT on that order? This will make it complaint and we can move forward with arrangements. Thank you, Halle Lange MD 12/26/2022 8:45 AM Signed completed Sue Raygoza LPN 12/26/2022 2:[address] Dale, The order that was placed today contains an incorrect date of your last office visit. It is using today's date not, 12/18/22. I corrected the order, can you please approve the new order? Thank you, PARTH Navarro Theresa L, LPN 12/26/2022 3:00 PM Signed Addended by: SUE RAYGOZA on: 12/26/2022 03:00 PM Modules accepted: Orders Halle Dale MD 12/26/2022 3:50 PM Signed It does now allow me to sign your order Halle Dale MD 12/26/2022 3:50 PM Signed Addended by: HALLE DALE on: 12/26/2022 03:50 PM Modules accepted: Orders Sue Raygoza LPN 12/26/2022 5:26 PM Signed Addended by: SUE RAYGOZA on: 12/26/2022 05:26 PM Modules accepted: Orders Sue Raygoza LPN 12/26/2022 5:30 PM Signed Addended by: SUE RAYGOZA on: 12/26/2022 05:30 PM Modules accepted: Orders Allergies As of Date: 12/20/2022 Noted Allergy Reaction DOXYCYCLINE 07/17/2021 5 - Intolerance Comments: Rash, diarrhea PENICILLIN 02/22/2017 4 - Hives PENICILLIN V POTASSIUM 12/20/2021 14 - Other: See Comments Date Reviewed: 12/19/2022 Reviewed by: Halle Dale MD - Fully Assessed Reason for Visit: Home Care [8073] Primary Visit Diagnosis:CLL (chronic lymphocytic leukemia) ([facility]) [C91.10] Order(s):CONSULT TO [facility] HOME [[id number]] Order #: [id number]: 1 Prescriptions as of 12/26/2022 - Doxepin (SILENOR) 3 mg tab Take 1 tablet by mouth daily at bedtime. - hevpnkuutnm-usxtiwrkt-r ilanter (TRELEGY ELLIPTA) 100-62.5-25 mcg inhalation powder Inhale 1 Puff as instructed once daily. - metoprolol tartrate, short acting, (LOPRESSOR) 25 mg tablet Take half a tablet by mouth twice daily. - enoxaparin (LOVENOX) 40 mg/0.4 mL Inject 0.4 mL subcutaneously every 24 hours. - hydroxyurea (HYDREA) 500 mg capsule Take 2 capsules by mouth once daily. - sodium bicarbonate 650 mg tablet Take 1 tablet by mouth twice daily. - roflumilast (DALIRESP) 500 mcg tab Take 1 tablet by mouth every afternoon. - omeprazole (PRILOSEC) 40 mg capsule Take 1 capsule by mouth once daily - zolpidem (AMBIEN) 5 mg tablet Take 1 tablet by mouth at bedtime as needed for up to 90 days. - evolocumab (REPATHA SURECLICK) 140 mg/mL pen injector Inject 140 mg subcutaneously every 2 weeks. - magnesium oxide (MAG-OX) 400 mg (241.3 mg magnesium) tablet Take 0.5 tablets by mouth once daily. 0.5 tablet - CPAP - BABY ASPIRIN ORAL Take 81 mg by mouth once daily. - ergocalciferol 50,000 unit capsule (VITAMIN D2, DRISDOL) once every month. 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 Normal [facility] XR Chest 1 view-Mobileon XR Chest 1 view-Mobile Examination: AP portable chest Clinical Indication: R06.02: SHORTNESS OF BREATH Comparison: None Findings: There is moderately dense consolidation within the right midlung consistent with pneumonia. No sizable pleural effusion. Left lung is clear. Heart size within normal limits. Degenerative changes within the shoulders and spine. There is fracture deformity within the lateral sixth and seventh ribs suggesting trauma likely more remote. Impression: Focal consolidation right mid lung most consistent with pneumonia. Report Dictated on Authenticated by: Ratna Lyons On: 12/20/2022 06:33 Read by: RATNA LYONS MD, Date: 12/20/2022 06:33 [facility] .GFRon 12-19-2022 GFR Non- 30 ml/min/1.73sqm [facility] ([place]) Comment on above: Result Comment: GFR Population mean for , Non- Americans Ages 20-29 = 116 mL/min/1.73 sq.m. Ages 30-39 = 107 mL/min/1.73 sq.m. Ages 40-49 = 99 mL/min/1.73 sq.m. Ages 50-59 = 93 mL/min/1.73 sq.m. Ages 60-69 = 85 mL/min/1.73 sq.m. Ages 70+ = 75 mL/min/1.73 sq.m. Chronic Kidney Disease: Less than 60 mL/min/1.73 square meters End Stage Renal Disease: Less than 15 mL/min/1.73 square meters Performed By: #### C MP, TROPHS, GFR, CBC, CBCPR, LAC, PRO, DIFF, MDW #### [facility] [address] [place] [address] #### MORPH, APTT #### [facility] [address] [place], [place] [address] GFR 36 ml/min/1.73sqm [facility] ([place]) Comment on above: Result Comment: GFR Population mean for , Non- Americans Ages 20-29 = 116 mL/min/1.73 sq.m. Ages 30-39 = 107 mL/min/1.73 sq.m. Ages 40-49 = 99 mL/min/1.73 sq.m. Ages 50-59 = 93 mL/min/1.73 sq.m. Ages 60-69 = 85 mL/min/1.73 sq.m. Ages 70+ = 75 mL/min/1.73 sq.m. Chronic Kidney Disease: Less than 60 mL/min/1.73 square meters End Stage Renal Disease: Less than 15 mL/min/1.73 square meters Performed By: #### C MP, TROPHS, GFR, CBC, CBCPR, LAC, PRO, DIFF, MDW #### [facility] [address] [place] [address] #### MORPH, APTT #### [facility] [address] [place] [phone] .MDWon 12-19-2022 Monocyte Distribution Width 46.30 High 0.00-20.00 [facility] ([place]) Comment on above: Result Comment: The predictive value of MDW for identifying sepsis in patients with hematological abnormalities has not been established Performed By: #### C MP, TROPHS, GFR, CBC, CBCPR, LAC, PRO, DIFF, MDW ####[place] [address]#### MORPH, APTT ####[facility] [place] [address] .Manual Diffon 12-19-2022 Basophil %, Manual 0.0 % Normal 0.0-2.5 [facility] ([place]) Comment on above: Performed By: #### C MP, TROPHS, GFR, CBC, CBCPR, LAC, PRO, DIFF, MDW ####[place] [address]#### MORPH, APTT ####[place] [facility]rn6658 [place] [address] Basophil, Abs Manual 0.0 10 3/mcL Normal 0.0-0.2 [facility] ([place]) Comment on above: Performed By: #### C MP, TROPHS, GFR, CBC, CBCPR, LAC, PRO, DIFF, MDW ####[place] [address]#### MORPH, APTT ####[facility] [place] [address] Eosinophil %, Manual 0.0 % Normal 0.0-7.0 [facility] ([place]) Comment on above: Performed By: #### C MP, TROPHS, GFR, CBC, CBCPR, LAC, PRO, DIFF, MDW ####[place] [address]#### MORPH, APTT ####Hussain [address] [place], [place] [address] Eosinophil, Abs Manual 0.0 10 3/mcL Normal 0.0-0.4 [facility] ([place]) Comment on above: Performed By: #### C MP, TROPHS, GFR, CBC, CBCPR, LAC, PRO, DIFF, MDW ####[place] [address]#### MORPH, APTT ####[place] [address] [place], [place] [address] Lymphocyte %, Manual 82.0 % High 10.0-50.0 [facility] ([place]) Comment on above: Performed By: #### C MP, TROPHS, GFR, CBC, CBCPR, LAC, PRO, DIFF, MDW ####[place] [address]#### MORPH, APTT ####[place] [address] [place], [place] [address] Lymphocyte, Abs Manual 42.7 10 3/mcL High 0.8-3.9 [facility] ([place]) Comment on above: Performed By: #### C MP, TROPHS, GFR, CBC, CBCPR, LAC, PRO, DIFF, MDW ####[place] [address]#### MORPH, APTT ####[place] [address] [place], [place] [address] Monocyte %, Manual 2.0 % Normal 1.7-13.0 [facility] ([place]) Comment on above: Performed By: #### C MP, TROPHS, GFR, CBC, CBCPR, LAC, PRO, DIFF, MDW ####[place] [address]#### MORPH, APTT ####[place] [address] [place], [place] [address] Monocyte, Abs Manual 1.1 10 3/mcL High 0.2-1.0 [facility] ([place]) Comment on above: Performed By: #### C MP, TROPHS, GFR, CBC, CBCPR, LAC, PRO, DIFF, MDW ####[place] [address]#### MORPH, APTT ####[facility] HospitalJmtnugmmu7655 [place] [phone] Neutrophil %, Manual 16.0 % Low 37.0-80.0 [facility] ([place]) Comment on above: Performed By: #### C MP, TROPHS, GFR, CBC, CBCPR, LAC, PRO, DIFF, MDW ####[place] [address]#### MORPH, APTT ####[facility]Rqzhclnns2929 [place], [place] [address] Neutrophil, Abs Manual 8.3 10 3/mcL High 2.9-6.2 [facility] ([place]) Comment on above: Performed By: #### C MP, TROPHS, GFR, CBC, CBCPR, LAC, PRO, DIFF, MDW ####[place] [address]#### MORPH, APTT ####[facility] [place], [place] [id number] Nucleated RBC 0.0 /100 WBC Normal [facility] ([place]) Comment on above: Performed By: #### C MP, TROPHS, GFR, CBC, CBCPR, LAC, PRO, DIFF, MDW ####[place] [address]#### MORPH, APTT ####[facility] HospitalZvxdkzqxu3605 [place], [place] [address] .Morphon 12-19-2022 Hypochrom 1+ Normal [facility] ([place]) Comment on above: Performed By: #### C MP, TROPHS, GFR, CBC, CBCPR, LAC, PRO, DIFF, MDW ####[place] [address]#### MORPH, APTT ####[facility]Rmnovdego4491 [place] [phone] Macrocytosis 1+ Normal [facility] ([place]) Comment on above: Performed By: #### C MP, TROPHS, GFR, CBC, CBCPR, LAC, PRO, DIFF, MDW ####[place] [address]#### MORPH, APTT ####[facility] [place] [address] Platelet Estimate Normal Normal [facility] ([place]) Comment on above: Performed By: #### C MP, TROPHS, GFR, CBC, CBCPR, LAC, PRO, DIFF, MDW ####[place] [address]#### MORPH, APTT ####[facility] HospitalOfxpfusxm5517 [place] [address] Smudge Cells 1+ Normal [facility] ([place]) Comment on above: Performed By: #### C MP, TROPHS, GFR, CBC, CBCPR, LAC, PRO, DIFF, MDW ####[place] [address]#### MORPH, APTT ####[facility] [address] [place] [address] .Urinalysis Microscopic (AO) on 12-19-2022 UA Amorphus 1+ /hpf Normal [facility] ([place]) Comment on above: Performed By: #### U A, UAMICAO #### [facility] [address] [place] [phone] UA Coarse Granular Casts 0-5 Abnormal [facility] ([place]) Comment on above: Performed By: #### U A, UAMICAO #### [facility] [place] [address] [place] [phone] UA RBC None Seen Normal None Seen [facility] ([place]) Comment on above: Performed By: #### U A, UAMICAO #### [facility] [place] [address] [place] [phone] UA Squam Epithelial 0-5 Abnormal None [facility]en [facility] ([place]) Comment on above: Performed By: #### U A, UAMICAO #### [facility] [place] [address] [place] [phone] UA WBC None Seen Normal None Seen [facility] ([place]) Comment on above: Performed By: #### U A, UAMICAO #### [facility] [address] [place], [place] [address] APTTon 12-19-2022 aPTT Coag (Bld) [Time] 25.2 s Normal 25.0-35.0 [facility] ([place]) Comment on above: Result Comment: For Heparin anticoagulation therapy, the recommended therapeutic range is: 50.6-87.4 seconds. Patients on heparin therapy may have an extreme result. Performed By: #### C MP, TROPHS, GFR, CBC, CBCPR, LAC, PRO, DIFF, MDW #### [place] [address] #### MORPH, APTT #### [facility] [address] [place], [place] [address] Heparin dose (APTT) LMW Heparin Normal [facility] ([place]) Comment on above: Performed By: #### C MP, TROPHS, GFR, CBC, CBCPR, LAC, PRO, DIFF, MDW #### [place] [address] #### MORPH, APTT #### [facility] [address] [place], [place] [address] CBCon 12-19-2022 Erythrocyte distribution width (RBC) [Ratio] 17.6 % High 11.5-14.5 [facility] ([place]) Comment on above: Performed By: #### C MP, TROPHS, GFR, CBC, CBCPR, LAC, PRO, DIFF, MDW #### [place] [address] #### MORPH, APTT #### [facility] [address] [place], [place] [address] Hematocrit (Bld) [Volume fraction] 24.3 % Low 42.0-52.0 [facility] ([place]) Comment on above: Performed By: #### C MP, TROPHS, GFR, CBC, CBCPR, LAC, PRO, DIFF, MDW #### [place] [address] #### MORPH, APTT #### [facility] [address] [place], [place] [address] Hgb 7.3 G/dL Low 14.0-18.0 [facility] ([place]) Comment on above: Performed By: #### C MP, TROPHS, GFR, CBC, CBCPR, LAC, PRO, DIFF, MDW #### [place] [address] #### MORPH, APTT #### [facility] [address] [place], [place] [address] MCH (RBC) [Entitic mass] 33.3 pg High 27.0-31.2 [facility] ([place]) Comment on above: Performed By: #### C MP, TROPHS, GFR, CBC, CBCPR, LAC, PRO, DIFF, MDW #### [place] [address] #### MORPH, APTT #### [facility] [address] [place], [place] [address] MCHC 30.2 G/dL Low 31.8-35.4 [facility] ([place]) Comment on above: Performed By: #### C MP, TROPHS, GFR, CBC, CBCPR, LAC, PRO, DIFF, MDW #### [place] [address] #### MORPH, APTT #### [facility] [address] [place], [place] [address] MCV (RBC) [Entitic vol] 110.1 fL High 80.0-94.0 [facility] ([place]) Comment on above: Performed By: #### C MP, TROPHS, GFR, CBC, CBCPR, LAC, PRO, DIFF, MDW #### [place] [address] #### MORPH, APTT #### [facility] [address] [place], [place] [address] Platelet 377 10 3/mcL Normal 130-400 [facility] ([place]) Comment on above: Performed By: #### C MP, TROPHS, GFR, CBC, CBCPR, LAC, PRO, DIFF, MDW #### [place] [address] #### MORPH, APTT #### [facility] [address] [place], [place] [address] Platelet mean volume (Bld) [Entitic vol] 8.6 fL Normal 7.4-10.4 [facility] ([place]) Comment on above: Performed By: #### C MP, TROPHS, GFR, CBC, CBCPR, LAC, PRO, DIFF, MDW #### [place] [address] #### MORPH, APTT #### [facility] [address] [place], [place] [address] RBC 2.21 10 6/mcL Low 4.04-6.13 [facility] ([place]) Comment on above: Performed By: #### C MP, TROPHS, GFR, CBC, CBCPR, LAC, PRO, DIFF, MDW #### [place] [address] #### MORPH, APTT #### [facility] [address] [place], [place] [address] WBC 52.1 10 3/mcL Critically abnormal 4.6-10.8 [facility] ([place]) Comment on above: Performed By: #### C MP, TROPHS, GFR, CBC, CBCPR, LAC, PRO, DIFF, MDW #### [place] [address] #### MORPH, APTT #### [facility] [address] [place], [place] [address] CMPon 12-19-2022 Albumin Level 2.4 G/dL Low 3.4-4.8 [facility] ([place]) Comment on above: Performed By: #### C MP, TROPHS, GFR, CBC, CBCPR, LAC, PRO, DIFF, MDW #### [place] [address] #### MORPH, APTT #### [facility] [address] [place], [place] [address] Albumin/Globulin [Mass ratio] 0.7 {ratio} Low 1.1-2.5 [facility] ([place]) Comment on above: Performed By: #### C MP, TROPHS, GFR, CBC, CBCPR, LAC, PRO, DIFF, W #### [place] [address] #### MORPH, APTT #### [facility] [address] [place], [place] [address] ALP [Catalytic activity/Vol] 144 U/L High 40-135 [facility] ([place]) Comment on above: Performed By: #### C MP, TROPHS, GFR, CBC, CBCPR, LAC, PRO, DIFF, PADMINI #### [place] [address] #### MORPH, APTT #### [facility] [address] [place], [place] [address] ALT [Catalytic activity/Vol] 45 U/L Normal 16-63 [facility] ([place]) Comment on above: Performed By: #### C MP, TROPHS, GFR, CBC, CBCPR, LAC, PRO, DIFF, PADMINI #### [place] [address] #### MORPH, APTT #### [facility] [address] [place], [place] [address] AST [Catalytic activity/Vol] 23 U/L Normal 10-40 [facility] ([place]) Comment on above: Performed By: #### C MP, TROPHS, GFR, CBC, CBCPR, LAC, PRO, DIFF, PADMINI #### [place] [address] #### MORPH, APTT #### [facility] [address] [place], [place] [address] Bili Total 0.7 mg/dL Normal 0.2-1.0 [facility] ([place]) Comment on above: Result Comment: Use of this assay is not recommended for patients undergoing treatment with eltrombopag due to the potential for falsely elevated results. Performed By: #### C MP, TROPHS, GFR, CBC, CBCPR, LAC, PRO, DIFFMDW #### [place] [address] #### MORPH, APTT #### [facility] [address] [place], [place] [address] BUN/Creatinine Ratio 13 ratio Normal 7-27 [facility] ([place]) Comment on above: Performed By: #### C MP, TROPHS, GFR, CBC, CBCPR, LAC, PRO, DIFF, MDW #### [place] [address] #### MORPH, APTT #### [facility] [address] [place], [place] [address] Calcium [Mass/Vol] 8.6 mg/dL Normal 8.4-10.2 [facility] ([place]) Comment on above: Performed By: #### C MP, TROPHS, GFR, CBC, CBCPR, LAC, PRO, DIFF, MDW #### [place] [address] #### MORPH, APTT #### [facility] [address] [place], [place] [address] Chloride [Moles/Vol] 98 mmol/L Normal 98-107 [facility] ([place]) Comment on above: Performed By: #### C MP, TROPHS, GFR, CBC, CBCPR, LAC, PRO, DIFF, MDW #### [place] [address] #### MORPH, APTT #### [facility] [address] [place], [place] [address] CO2 [Moles/Vol] 18 mmol/L Low 23-31 [facility] ([place]) Comment on above: Performed By: #### C MP, TROPHS, GFR, CBC, CBCPR, LAC, PRO, DIFF, MDW #### [place] [address] #### MORPH, APTT #### [facility] [address] [place], [place] [address] Creatinine [Mass/Vol] 2.22 mg/dL High 0.70-1.30 [facility] ([place]) Comment on above: Performed By: #### C MP, TROPHS, GFR, CBC, CBCPR, LAC, PRO, DIFF, MDW #### [place] [address] #### MORPH, APTT #### [facility] [address] [place], [place] [address] Electrolyte Balance 14.0 mEq/L Normal 4.0-15.0 [facility] ([place]) Comment on above: Performed By: #### C MP, TROPHS, GFR, CBC, CBCPR, LAC, PRO, DIFF, MDW #### [place] [address] #### MORPH, APTT #### [facility] [address] [place], [place] [address] Globulin 3.6 G/dL Normal [facility] ([place]) Comment on above: Performed By: #### C MP, TROPHS, GFR, CBC, CBCPR, LAC, PRO, DIFF, MDW #### [place] [address] #### MORPH, APTT #### [facility] [address] [place], [place] [address] Glucose [Mass/Vol] 151 mg/dL High 80-115 [facility] ([place]) Comment on above: Performed By: #### C MP, TROPHS, GFR, CBC, CBCPR, LAC, PRO, DIFF, MDW #### [place] [address] #### MORPH, APTT #### [facility] [address] [place], [place] [address] Potassium [Moles/Vol] 4.4 mmol/L Normal 3.5-5.1 [facility] ([place]) Comment on above: Performed By: #### C MP, TROPHS, GFR, CBC, CBCPR, LAC, PRO, DIFF, MDW #### [place] [address] #### MORPH, APTT #### [facility] [address] [place], [place] [address] Sodium [Moles/Vol] 130 mmol/L Low 136-145 [facility] ([place]) Comment on above: Performed By: #### C MP, TROPHS, GFR, CBC, CBCPR, LAC, PRO, DIFF, MDW #### [place] [address] #### MORPH, APTT #### [facility] [address] [place], [place] [address] Total Protein 6.0 G/dL Low 6.4-8.2 [facility] ([place]) Comment on above: Performed By: #### C MP, TROPHS, GFR, CBC, CBCPR, LAC, PRO, DIFF, MDW #### [place] [address] #### MORPH, APTT #### [facility] [address] [place], [place] [address] Urea nitrogen [Mass/Vol] 28 mg/dL High 7-18 [facility] ([place]) Comment on above: Performed By: #### C MP, TROPHS, GFR, CBC, CBCPR, LAC, PRO, DIFF, MDW #### [place] [address] #### MORPH, APTT #### [facility] [address] [place], [place] [address] [id number] 12-19-2022 SARS-CoV-2 (COVID-19) RNA MYA+probe Ql (Unsp spec) Negative Normal Negative [facility] ([place]) Comment on above: Performed By: #### F LURSV, COVD19 ####[facility]Zebjpudtn3978 [place], [place] [address] SARS-CoV-2 (COVID-19) RNA MYA+probe Ql (Unsp spec) Normal [facility] ([place]) Comment on above: Result Comment: Nega tive results do not preclude SARS-CoV-2 infection and should not be used as the sole basis for patient management decisions. Negative results must be combined with clinical observations, patient history, and epidemiological information. There is a risk of false negative values resulting from improperly collected, transported, or handled specimens. There is a risk of false negative values due to the presence of sequence variants in the pathogen targets of the assay, procedural errors, amplification inhibitors in specimens, or inadequate numbers of organisms for amplification. JUAN RAMON SARS-CoV-2 Assay is a Real-Time reverse-transcriptase polymerase chain reaction (RT-PCR) based qualitative in vitro diagnostic test intended for the qualitative detection of nucleic acid from the SARS-CoV-2 in nasopharyngeal swab specimens collected from individuals suspected of COVID-19 by their healthcare provider. Testing is limited to laboratories certified under the Clinical Laboratory Improvement Amendments of 1988 (CLIA), 42 U.S.C. ?263a, to perform moderate and high complexity tests. COVID-19 Int Performed By: #### F SHANTEL, COVD19 ####[facility] [address] [place], [place] [address] CT HEAD OR BRAIN W/O CONTRAS Jeffrey 12-19-2022 CT HEAD OR BRAIN W/O CONTRAST ORIGINAL HISTORY: Headache, fall COMPARISON: No TECHNIQUE: Routine non-contrast head CT with sagittal and coronal reconstructions This exam was performed according to our departmental dose optimization program, and includes the following measures where applicable: automated exposure control, adjustment of the mAs and/or kVp according to patient size and/or exam, and an iterative reconstruction algorithm. FINDINGS: The ventricles and sulci are mildly enlarged. There are no abnormal intra or extra-axial fluid collections. There is mild irregular decreased attenuation in the cerebral white matter. Bee-white matter differentiation is maintained. The calvaria and the bones of the base of the skull are intact. There is sinus disease. IMPRESSION: Mild volume loss and small vessel ischemic disease. Sinus disease. Interpreted by: Pantera Phillips MD Preliminary Report By: Pantera Phillips MD Electronically signed By Pantera Phillips MD Dictated Date: 12/19/2022 1:14:44 PM Prelim Date: 12/19/2022 1:15:57 PM Sign Date: 12/19/2022 1:15:57 PM Ordering Provider: SAM RICO [facility] ([place]) CT SPINE CERVICAL W/O CONTRA Omega 12-19-2022 CT SPINE CERVICAL W/O CONTRAST ORIGINAL HISTORY: Fall COMPARISON: No TECHNIQUE: Cervical spine CT with sagittal and coronal reconstructions. This exam was performed according to our departmental dose optimization program, and includes the following measures where applicable: automated exposure control, adjustment of the mAs and/or kVp according to patient size and/or exam, and an iterative reconstruction algorithm. FINDINGS: There are no acute fractures or dislocations. Alignment is within normal limits. The individual vertebral bodies are intact. The prevertebral soft tissues are unremarkable in appearance. IMPRESSION: No acute fracture. Interpreted by: Pantera Phillips MD Preliminary Report By: Pantera Phillips MD Electronically signed By Pantera Phillips MD Dictated Date: 12/19/2022 1:16:09 PM Prelim Date: 12/19/2022 1:17:30 PM Sign Date: 12/19/2022 1:17:30 PM Ordering Provider: SAMMOISES RICO [facility] ([place]) CT THORAX W/O CONTRASTon CT THORAX W/O CONTRAST ORIGINAL EXAMINATION: CT OF THE CHEST WITHOUT CONTRAST 12/19/2022 1:14 pm TECHNIQUE: CT of the chest was performed without the administration of intravenous contrast. Multiplanar reformatted images are provided for review. Automated exposure control, iterative reconstruction, and/or weight based adjustment of the mA/kV was utilized to reduce the radiation dose to as low as reasonably achievable. COMPARISON: None. HISTORY: ORDERING SYSTEM PROVIDED HISTORY: Reason for Exam: SOB FINDINGS: Subcentimeter tiny thyroid lobe nodules. [place]inner right and left lower paratracheal lymph nodes measures 1.1 cm, and 1 cm in short axis dimension respectively. 1.3 cm subcarinal lymph node. The heart is normal in size. Coronary artery calcifications and/or stents identified. Trace pericardial effusion. The aorta is normal in caliber and contains atherosclerotic calcifications. Mildly dilated pulmonary artery measuring 3.3 cm in diameter. The major airways are patent. There is no pneumothorax or left pleural fluid. Trace right pleural effusion with adjacent atelectasis. Multifocal areas of confluent consolidative and ground-glass in the right lung in keeping with pneumonia. Focal area of ground-glass opacity in the lingula (2:58). Punctate left upper lobe nodule (2:34). 5 mm juxtacortical right middle lobe pulmonary nodule. No acute or suspicious osseous lesions identified. Healing right 7,8 rib fractures with bony remodeling. Visualized portions of upper abdomen are unremarkable. Bilateral gynecomastia. IMPRESSION: Multifocal areas of confluent consolidative and ground-glass opacities in the right lung in keeping with pneumonia. Continued follow-up to resolution is recommended. Trace right pleural effusion with adjacent atelectasis. A few scattered lung nodules measuring up to 5 mm as detailed above do not require imaging follow-up per Fleischner criteria. Ununited/remote right 7, 8 rib fractures with bony remodeling. No acute fracture seen. I have personally reviewed the images of this examination and agree with the resident's finding and interpretation. RECOMMENDATIONS: Subcentimeter incidental thyroid nodule. No follow-up imaging is recommended. Reference: J Am Jodi Radiol. 2015 May;12(2): 143-50 Interpreted by: Андрей Krishnamurthy MD Preliminary Report By: Crispin Parker Electronically signed By Андрей Krishnamurthy MD Dictated Date: 12/19/2022 1:20:53 PM Prelim Date: 12/19/2022 1:46:03 PM Sign Date: 12/19/2022 1:46:03 PM Ordering Provider: SAM RICO Normal [facility] ([place]) FLUJaniya 12-19-2022 Flu A PCR (AO) Negative Normal Negative [facility] ([place]) Comment on above: Result Comment: Posi tive Results: Positive Flu A/B or RSV for by PCR. Positive test results do not rule out bacterial infection or co-infection with other pathogens. Test results should be interpreted in conjunction with other laboratory and clinical data. Negative Results: Negative for by PCR. Negative test results do not preclude influenza virus or RSV infection and should not be used as the sole basis for diagnosis, treatment, or other management decisions. There is a risk of false negative RSV results when at low concentration and in the presence of co-infection with high concentration of influenza A. Invalid Results: An Invalid result (INV) was obtained. The test was repeated with similar results. REPEAT COLLECTION AND TESTING IS RECOMMENDED. The [employer] Flu A/B & RSV Assay is a real-time polymerase chain reaction (PCR) based qualitative in vitro diagnostic test for the direct detection and differentiation of influenza A virus, influenza B virus, and respiratory syncytial virus (RSV) nucleic acid in nasopharyngeal swab (SKULL CHOPPER) specimens from patients with signs and symptoms of respiratory infection in conjunction with clinical and laboratory findings. The test is intended for use as an aid in the differential diagnosis of influenza A virus, influenza B virus, and RSV in humans and is not intended to detect influenza C. Performed By: #### F HERONRSV, COVD19 ####[facility] [address]arez[address] [place], [place] [address] Flu B PCR (AO) Negative Normal Negative [facility] ([place]) Comment on above: Result Comment: Posi tive Results: Positive Flu A/B or RSV for by PCR. Positive test results do not rule out bacterial infection or co-infection with other pathogens. Test results should be interpreted in conjunction with other laboratory and clinical data. Negative Results: Negative for by PCR. Negative test results do not preclude influenza virus or RSV infection and should not be used as the sole basis for diagnosis, treatment, or other management decisions. There is a risk of false negative RSV results when at low concentration and in the presence of co-infection with high concentration of influenza A. Invalid Results: An Invalid result (INV) was obtained. The test was repeated with similar results. REPEAT COLLECTION AND TESTING IS RECOMMENDED. The [employer] Flu A/B & RSV Assay is a real-time polymerase chain reaction (PCR) based qualitative in vitro diagnostic test for the direct detection and differentiation of influenza A virus, influenza B virus, and respiratory syncytial virus (RSV) nucleic acid in nasopharyngeal swab (SKULL CHOPPER) specimens from patients with signs and symptoms of respiratory infection in conjunction with clinical and laboratory findings. The test is intended for use as an aid in the differential diagnosis of influenza A virus, influenza B virus, and RSV in humans and is not intended to detect influenza C. Performed By: #### F HERONRSV, COVD19 ####[address] [place], [place] [address] RSV PCR (AO) Negative Normal Negative [facility] ([place]) Comment on above: Result Comment: Posi tive Results: Positive Flu A/B or RSV for by PCR. Positive test results do not rule out bacterial infection or co-infection with other pathogens. Test results should be interpreted in conjunction with other laboratory and clinical data. Negative Results: Negative for by PCR. Negative test results do not preclude influenza virus or RSV infection and should not be used as the sole basis for diagnosis, treatment, or other management decisions. There is a risk of false negative RSV results when at low concentration and in the presence of co-infection with high concentration of influenza A. Invalid Results: An Invalid result (INV) was obtained. The test was repeated with similar results. REPEAT COLLECTION AND TESTING IS RECOMMENDED. The [employer] Flu A/B & RSV Assay is a real-time polymerase chain reaction (PCR) based qualitative in vitro diagnostic test for the direct detection and differentiation of influenza A virus, influenza B virus, and respiratory syncytial virus (RSV) nucleic acid in nasopharyngeal swab (SKULL CHOPPER) specimens from patients with signs and symptoms of respiratory infection in conjunction with clinical and laboratory findings. The test is intended for use as an aid in the differential diagnosis of influenza A virus, influenza B virus, and RSV in humans and is not intended to detect influenza C. Performed By: #### F LURSV, COVD19 ####[facility] [address] [place], [place] [address] LACon 12-19-2022 Lactic Acid Lvl 1.5 mmol/L Normal 0.4-2.0 [facility] ([place]) Comment on above: Order Comment: Order ed secondary to Lactic Acid result greater than or equal to 2.0 Performed By: #### L AC ####[place] [address] Lactic Acid Lvl 3.4 mmol/L High 0.4-2.0 [facility] ([place]) Comment on above: Performed By: #### C MP, TROPHS, GFR, CBC, CBCPR, LAC, PRO, DIFF, MDW ####[place] [address]#### MORPH, APTT ####[place] [id number] [place] [address] Leukodepleted Red Cells Rele asedon 12-19-2022 Product Code [id number] [facility] [facility] Comment on above: Performed By: #### R LRC #### [place] [id number] Rel By [facility] Comment on above: Performed By: #### R LRC #### [address] [address] Rel Date 12/19/2022 [facility] Comment on above: Performed By: #### R LRC #### [address] [place] [address] Rel Time 2115 [facility] Comment on above: Performed By: #### R LRC #### [facility] [address] [place] [address] Rel To DB [facility] Comment on above: Performed By: #### R LRC #### [facility] [address] [place] [address] [id number] [facility] Comment on above: Performed By: #### R LRC #### [facility] [address] [place] [address] PROon 12-19-2022 PT Coag (PPP) [Time] 20.4 s High 9.0-14.2 [facility] ([place]) Comment on above: Performed By: #### C MP, TROPHS, GFR, CBC, CBCPR, LAC, PRO, DIFF, MDW #### [place] [address] #### MORPH, APTT #### [facility] [address] [place], [place] [address] PT International Ratio 1.8 [facility] ([place]) Comment on above: Result Comment: The [place] [employer] (CHEST, 1992, 102:312S-25S) recommended therapeutic range for oral anticoagulant therapy is: LOW RISK: Prophylaxis of venous thrombosis INR: 2.0-3.0 Treatment of pulmonary embolism 2.0-3.0 Prevention of systemic embolism 2.0-3.0 HIGH RISK: Mechanical prosthetic valves 2.5-3.5 Performed By: #### C MP, TROPHS, GFR, CBC, CBCPR, LAC, PRO, DIFF, MDW #### [place] [address] #### MORPH, APTT #### [facility] [address] [place], [place] [address] TROPHSon 12-19-2022 Troponin I High Sensitivity 428.3 ng/L High 0.0-76.2 [facility] ([place]) Comment on above: Performed By: #### T ROPHS ####[address] [address] Troponin I High Sensitivity 144.9 ng/L High 0.0-76.2 [facility] ([place]) Comment on above: Performed By: #### C MP, TROPHS, GFR, CBC, CBCPR, LAC, PRO, DIFF, MDW #### [place] [address] #### MORPH, APTT #### [facility] [address] [place], [place] [address] UAon 12-19-2022 Color (U) Yellow Normal [facility] ([place]) Comment on above: Performed By: #### U A, UAMICAO #### [facility] [address] [place], [place] [address] Glucose (U) [Mass/Vol] Negative Normal Negative [facility] ([place]) Comment on above: Performed By: #### U A, UAMICAO #### [facility] [address] [place], [place] [address] Ketones Ql (U) Negative Normal Negative [facility] ([place]) Comment on above: Performed By: #### U A, UAMICAO #### [facility] [address] [place], [place] [address] UA Appear Slightly Cloudy Abnormal Clear [facility] ([place]) Comment on above: Performed By: #### U A, UAMICAO #### [facility] [address] [place], [place] [address] UA Blood Negative Normal Negative [facility] ([place]) Comment on above: Performed By: #### U A, UAMICAO #### [facility] [address] [place], [place] [address] UA Leuk Est Negative Normal Negative [facility] ([place]) Comment on above: Performed By: #### U A, UAMICAO #### [facility] [address] [place], [place] [address] UA Nitrite Negative Normal Negative [facility] ([place]) Comment on above: Performed By: #### U A, UAMICAO #### [facility] [address] [place], [place] [address] UA pH 5.5 Normal 5.0 - 8.0 [facility] ([place]) Comment on above: Performed By: #### U A, UAMICAO #### [facility] [address] [place] [phone] UA Protein 100 mg/dL Abnormal Negative [facility] ([place]) Comment on above: Performed By: #### U A, UAMICAO #### [facility] [address] [place] [phone] UA Spec Grav 1.015 Normal 1.015-1.025 [facility] ([place]) Comment on above: Performed By: #### U A, UAMICAO #### [facility] [address] [place] [address] UA Specimen Type Catheter Normal [facility] ([place]) Comment on above: Performed By: #### U A, UAMICAO #### [facility] [address] [place] [address] UA Urobilinogen 0.2 E.U./dL Normal 0.2-1.0 [facility] ([place]) Comment on above: Performed By: #### U A, UAMICAO #### [facility] [address] [place] [phone] Urobilinogen (U) [Mass/Vol] Negative Normal Negative [facility] ([place]) Comment on above: Performed By: #### U A, UAMICAO #### [facility] [address] [place] [phone] CNOVolga lidia 12-13-2022 [facility] Office Visit (PULU ) ADINA DAVID ([id number]) 1955 M Date Time Provider Department 12/13/22 10:30 AM NAKUL GALLEGOS [facility] During your visit today, we recorded the following information about you: Temperature Pulse Respiration Blood pressure 96.7 degrees 107/minute 16/minute 134/76 Height 1.778 m Nakul Gallegos MD 12/13/2022 12:59 PM Signed [facility] DEPARTMENT OF PULMONARY MEDICINE Date: December 13, 2022 Patient Name: Adina David Adina David is a 67 year old yr old male, presents to the [facility] [place] for evaluation of CIRA and insomnia. Patient has a history of CIRA diagnosed in 2018. Patient has been on CPAP since that time, but he is having significantly difficulty using CPAP. Patient has a severe mask leak, and had to stop CPAP use recently. Patient has also recently developed insomnia symptoms, and is having difficulty withsleep at this time as well. When patient first started CPAP, he had difficulties for the first 6-8 months, but began wearing for periods of time during the day tize. After his first 8 months of treatment, he began to do better with it. Patient would still have occasional difficulties and take off during the night, but on most nights, he was able to use the entire night. Patient does use heated humidity, and feels it is helpful. Patient began first having difficulties in early 2022 - apr to May or so. This coincides with onset of a respiratory illness. The patient has developed chronic cough symptoms. He also developed an upper respiratory infection, and this lasted for several months. Patient had developed worsening cough after this. His cough symptoms worsened around this time, and have been so severe that he broke ribs in the past. Patient was treated with antibiotics and steroids, without much improvement. Patient had PFT done in 07/2022 which showed moderately severe Obstructive disease. Patient is an active marijuana smoker, for over 50 years. Patient did smoke cigarettes for approximately. Patient has also developed insomnia symptoms alsong the time that these symptoms have occurred. Patient currently reports that he is averaging 3 hours of sleep per night. Patient has noted that after a HS 11:00 PM; ESL on average 2-3 hours > During this time the patient will have coughing issues, and these tend to be worsened by positional changes > Patient will usually listen to talk radio while trying to fall asleep. > Patient does not watch TV, or interact with tablets or phones after HS Patient will usually wake up around 1:30, 3:00 and 4:30 to use bathroom. Patient is able to fall asleep usually within 30 min. The patient will usually watch you tube/read google while on the toilet Patient us usually up for the day around 6:30ish Patient does not take naps during the day PRIMARY CARE PHYSICIAN: Ulises Ramos DO REASON FOR CONSULT: Patient presents with: Sleep Apnea REQUESTING PHYSICIAN: Ulises Ramos DO My final recommendations will be communicated to the requesting health care provider by way of the shared medical record for internal providers or letter via the [employer] Postal Service for external providers. Patient Entered Questionnaires: PROMIS Global Health - (T-Scores - the mean of general population = 50. Five points is a clinically meaningful difference.) 05/31/2022 05/31/2022 12/05/2021 Physical T-Score 29.6 29.6 34.9 Mental T-Score 36.3 36.3 - Modified Medical Research [place] Dyspnea Scale (MMRC) I am too breathless to leave the house or I am breathless when dressing 4 Daily cough: Yes Daily Sputum: Yes IMMUNIZATIONS: Immunization History Administered Date(s) Administered COVID-19 original vaccine, age 12+ yr, monovalent (ikeGPS - GAYLE TOP) 07/24/2021 COVID-19 original vaccine, full dose, monovalent (MODERNA) 06/21/2020 07/19/2020 03/13/2021 COVID-19 vaccine, age 12+ yr, bivalent (MODERNA) 03/05/2022 influenza (HD-IIV3) vaccine, age 65+ yr, high dose, PF (FLUZONE HIGH-DOSE) 01/18/2019 influenza (HD-IIV4) vaccine, age 65+ yr, high dose, quadrivalent, PF (FLUZONE HIGH-DOSE) 01/18/2020 05/22/2021 influenza (IIV3) vaccine, age 3+ yr, trivalent (AFLURIA, FLULAVAL, FLUVIRIN, FLUZONE) 01/31/2017 influenza (IIV4) vaccine, age 6 mo - 64 yr, quadrivalent, PF (AFLURIA, FLUARIX, FLULAVAL, FLUZONE) 01/20/2018 influenza (ccIIV4) vaccine, age 6+ mo, quadrivalent, PF (FLUCELVAX) 02/09/2017 pneumococcal (PCV13) vaccine, 13 valent (PREVNAR 13) 01/19/2020 pneumococcal (PCV20) vaccine, 20 valent (PREVNAR 20) 03/15/2022 pneumococcal (PPV23) vaccine, 23 valent (PNEUMOVAX 23) 02/27/2017 tuberculin skin test, unspecified formulation 07/27/2020 08/06/2020 zoster (RZV) vaccine, recombinant (SHINGRIX) 07/12/2021 10/16/2021 zoster (ZVL) vaccine, live (ZOSTAVAX (more content not included)... Normal [facility] ADINA DAVID ([id number]) 1955 Date Time Provider Department 12/12/22 ULISES RAMOS [facility] During your visit today, we recorded the following information about you: Allergies As of Date: 12/12/2022 Noted Allergy Reaction DOXYCYCLINE 07/17/2021 5 - Intolerance Comments: Rash, diarrhea PENICILLIN 02/22/2017 4 - Hives PENICILLIN V POTASSIUM 12/20/2021 14 - Other: See Comments Date Reviewed: 12/05/2022 Reviewed by: Amy Bach, RN - Fully Assessed Prescriptions as of 12/12/2022 - hyionvwbaeh-dnnbmsgqf-i ilanter (TRELEGY ELLIPTA) 100-62.5-25 mcg inhalation powder Inhale 1 Puff as instructed once daily. - metoprolol tartrate, short acting, (LOPRESSOR) 25 mg tablet Take half a tablet by mouth twice daily. - enoxaparin (LOVENOX) 40 mg/0.4 mL Inject 0.4 mL subcutaneously every 24 hours. - hydroxyurea (HYDREA) 500 mg capsule Take 2 capsules by mouth once daily. - sodium bicarbonate 650 mg tablet Take 1 tablet by mouth twice daily. - roflumilast (DALIRESP) 500 mcg tab Take 1 tablet by mouth every afternoon. - omeprazole (PRILOSEC) 40 mg capsule Take 1 capsule by mouth once daily - zolpidem (AMBIEN) 5 mg tablet Take 1 tablet by mouth at bedtime as needed for up to 90 days. - evolocumab (REPATHA SURECLICK) 140 mg/mL pen injector Inject 140 mg subcutaneously every 2 weeks. - magnesium oxide (MAG-OX) 400 mg (241.3 mg magnesium) tablet Take 0.5 tablets by mouth once daily. 0.5 tablet - CPAP - BABY ASPIRIN ORAL Take 81 mg by mouth once daily. - ergocalciferol 50,000 unit capsule (VITAMIN D2, DRISDOL) once every month. Problem List As Of Date 12/12/2022 Noted Resolved Multiple lipomas [D17.9] GERD (gastroesophageal reflux disease) [K21.9] H/O resection of large bowel [Z90.49] 04/14/2004 Essential hypertension [I10] Renal cancer, right (HCC) [C64.1] 04/29/2017 CLL (chronic lymphocytic leukemia) (HCC) [C91.1*06/13/2017 Iron deficiency anemia [D50.9] 06/13/2017 Iron adverse reaction [T45.4X5A] 10/24/2017 Frequency of urination [R35.0] 03/19/2018 02/11/2019 Nocturia [R35.1] 03/19/2018 BPH (benign prostatic hyperplasia) [N40.0] 10/05/2018 History of right nephrectomy [Z90.5] 10/05/2018 NSTEMI (non-ST elevated myocardial infarction) *10/24/2018 Stage 2 chronic kidney disease [N18.2] 11/10/2018 Post PTCA [Z98.61] 11/25/2018 S/P drug eluting coronary stent placement [Z95.*11/25/2018 GI bleed [K92.2] 12/31/2018 01/11/2019 Hypertriglyceridemia [E78.1] 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.* 01/11/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] DENG (acute kidney injury) (HCC) [N17.9] 01/07/2019 Facial numbness [R20.0] 03/31/2019 04/03/2019 Leukocytosis [D72.829] 03/31/2019 Essential thrombocythemia (HCC) [D47.3] 03/31/2019 CKD (chronic kidney disease) stage 3, GFR 30-59*03/31/2019 Closed left subtrochanteric femur fracture (HCC*07/22/2020 07/27/2020 Deep vein thrombosis (DVT) of femoral vein of l*03/14/2021 Leg swelling [M79.89] 03/14/2021 CIRA (obstructive sleep apnea) [G47.33] 05/01/2021 Severe anemia [D64.9] 05/02/2021 Severe protein-calorie malnutrition (HCC) [E43] 05/09/2021 Acute blood loss anemia [D62] 05/16/2021 COVID-19 virus infection [U07.1] 05/16/2021 Obesity, Class I, BMI 30-34.9 [E66.9] 05/28/2021 Vitamin D deficiency [E55.9] 07/17/2021 Iron deficiency anemia due to chronic blood los*02/19/2022 SOB (shortness of breath) [R06.02] 11/27/2022 Lightheadedness [R42] 11/27/2022 Pulmonary embolism, unspecified chronicity, uns*12/01/2022 Coronary artery disease involving [place]*12/02/2022 Other emphysema (HCC) [J43.8] 12/02/2022 Chronic deep vein thrombosis (DVT) of proximal *12/02/2022 AVM (arteriovenous malformation) [Q27.30] 12/02/2022 History of gastrointestinal bleeding [Z87.19] 12/02/2022 Tachycardia [R00.0] 12/03/2022 Elevated troponin [R77.8] 12/03/2022 12/11/2022 Pulmonary nodules [R91.8] 12/05/2022 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 medical conditio*12/09/2022 Personal history of DVT (deep vein thrombosis) *12/11/2022 Anticoagulation management encounter [Z51.81, Z*12/11/2022 Encounter Status:Closed by DARRELL DOUGLAS on 12/12/22 Normal [facility] Basic metabolic 2000 panelon 12-11-2022 Anion gap [Moles/Vol] 15 mmol/L Normal 9-18 [facility] Comment on above: Order Comment: Speci men Type: BLOOD SPECIMENOrdering Facility: [facility] Address: [address] [place] [address] Performed By: #### 1 [address]1239, 95369-0 ####[facility] LABCLIA [id number] [place] [address] [place] Calcium [Mass/Vol] 10.4 mg/dL High 8.5-10.2 [facility] Comment on above: Order Comment: Speci men Type: BLOOD SPECIMENOrdering Facility: [facility] Address: [address] [place] [address] Performed By: #### 1 9, 61757-9 ####[facility] LABCLIA [id number] [place] [address] [place] Chloride [Moles/Vol] 102 mmol/L Normal 97-105 [facility] Comment on above: Order Comment: Speci men Type: BLOOD SPECIMENOrdering Facility: [facility] Address: [address] [place] [address] Performed By: #### 1 239, 08137-1 ####[facility] LABCLIA [id number] [facility] [place] [address] [place] CO2 [Moles/Vol] 20 mmol/L Low 22-30 [facility] Comment on above: Order Comment: Speci men Type: BLOOD SPECIMENOrdering Facility: [facility] Address: [address] [place], [place] [address] Performed By: #### 1 239, 34642-3 ####[facility] LABCLIA [id number] [facility] [place] [address] [place] Creatinine [Mass/Vol] 2.33 mg/dL High 0.73-1.22 [facility] Comment on above: Order Comment: Kaylee christianson Type: BLOOD SPECIMENOrdering Facility: [facility] Address: [address] [place] [address] Performed By: #### 1 9123-9, 38396-6 ####[facility] LABCLIA [id number] [address] [place] Creatinine and Glomerular filtration rate.predicted panel (S/P/Bld) 30 mL/min/1.73m??? Low >=60 [facility] Comment on above: Order Comment: Kaylee christianson Type: BLOOD SPECIMENOrdering Facility: [facility] Address: [address] [place] [address] Result Comment: Mady mated Glomerular Filtration Rate (eGFR) is calculated using the 2020 CKD-EPI creatinine equation. This equation utilizes serum creatinine, sex, and age as parameters. The creatinine assay has traceable calibration to isotope dilution-mass spectrometry. Refer to KDIGO guidelines for clinical interpretation. In patients with unstable renal function, e.g. those with acute kidney injury, the eGFR may not accurately reflect actual GFR. Performed By: #### 1 9123-9, 70983-4 ####[facility] LABCLIA [id number] [place] [address] [place] Glucose [Mass/Vol] 107 mg/dL High 74-99 [facility] Comment on above: Order Comment: Kaylee christianson Type: BLOOD SPECIMENOrdering Facility: [facility] Address: [address] [place] [address] Result Comment: The [place] Diabetes Association (ADA) provides guidance for cutoff values for fasting glucose and random glucose. The ADA defines fasting as no caloric intake for at least 8 hours. Fasting plasma glucose results between 100 to 125 mg/dL indicate increased risk for diabetes (prediabetes). Fasting plasma glucose results greater than or equal to 126 mg/dL meet the criteria for diagnosis of diabetes. In the absence of unequivocal hyperglycemia, results should be confirmed by repeat testing. In a patient with classic symptoms of hyperglycemia or hyperglycemic crisis, random plasma glucose results greater than or equal to 200 mg/dL meet the criteria for diagnosis of diabetes. Reference: Standards of Medical Care in Diabetes 2016, [place] [employer] Association. Diabetes Care. 2016.39(Suppl 1). Performed By: #### 1 9123-9, 41850-9 ####[facility] LABIA [id number] [place] [address] [place] Potassium [Moles/Vol] 4.6 mmol/L Normal 3.7-5.1 [facility] Comment on above: Order Comment: Speci men Type: BLOOD SPECIMENOrdering Facility: [facility] Address: [address] [place] [address] Performed By: #### 1 919, 94252-9 ####[facility] LABIA [id number] [address] [place] Sodium [Moles/Vol] 137 mmol/L Normal 136-144 [facility] Comment on above: Order Comment: Speci men Type: BLOOD SPECIMENOrdering Facility: [facility] Address: [address] [place] [address] Performed By: #### 1 [address]1239, 96017-2 ####[facility] [id number] [place] [address] [place] Urea nitrogen [Mass/Vol] 45 mg/dL High 9-24 [facility] Comment on above: Order Comment: Speci men Type: BLOOD SPECIMENOrdering Facility: [facility] Address: [address] [place] [address] Performed By: #### 1 [address]1239, 39834-5 ####[facility] LABIA [id number] [place] [address] [place] CBC panel Auto (Bld)on 12-11 Erythrocyte distribution width (RBC) [Ratio] 17.2 % High 11.5-15.0 [facility] Comment on above: Order Comment: Speci men Type: BLOOD SPECIMENOrdering Facility: [facility] Address: [address] Performed By: #### 5 8410-2 ####[facility] LABCLIA [id number] [address] [place] Hematocrit (Bld) [Volume fraction] 28.3 % Low 39.0-51.0 [facility] Comment on above: Order Comment: Speci men Type: BLOOD SPECIMENOrdering Facility: [facility] Address: [address] [address] Performed By: #### 5 8410-2 ####[facility] LABIA [id number] [place] [address] [place] Hemoglobin (Bld) [Mass/Vol] 8.4 g/dL Low 13.0-17.0 [facility] Comment on above: Order Comment: Speci men Type: BLOOD SPECIMENOrdering Facility: [facility] Address: [address] [address] Performed By: #### 5 8410-2 ####[facility] LABIA [id number] [place] [address] [place] MCH (RBC) [Entitic mass] 33.3 pg Normal 26.0-34.0 [facility] Comment on above: Order Comment: Speci men Type: BLOOD SPECIMENOrdering Facility: [facility] Address: [address] Performed By: #### 5 8410-2 ####[facility] LABCLIA [id number] [place] [address] [place] MCHC (RBC) [Mass/Vol] 29.7 g/dL Low 30.5-36.0 [facility] Comment on above: Order Comment: Speci men Type: BLOOD SPECIMENOrdering Facility: [facility] Address: [address] [place] [address] Performed By: #### 5 8410-2 ####[facility] LABCLIA [id number] [place] [address] [place] MCV (RBC) [Entitic vol] 112.3 fL High 80.0-100.0 [facility] Comment on above: Order Comment: Speci men Type: BLOOD SPECIMENOrdering Facility: [facility] Address: [address] [place], [place] [address] Performed By: #### 5 8410-2 ####[facility] [id number] [place] [address] [place] Nucleated RBC (Bld) [#/Vol] 10*3/uL Normal <0.01 [facility] Comment on above: Order Comment: Speci men Type: BLOOD SPECIMENOrdering Facility: [facility] Address: [address] [place], [place] [address] Performed By: #### 5 8410-2 ####[facility] [id number] [place] [address] [place] Platelet mean volume (Bld) [Entitic vol] 9.5 fL Normal 9.0-12.7 [facility] Comment on above: Order Comment: Speci men Type: BLOOD SPECIMENOrdering Facility: [facility] Address: [address] [place], [place] [address] Performed By: #### 5 8410-2 ####[facility] [id number] [place] [address] [place] Platelets (Bld) [#/Vol] 423 10*3/uL High 150-400 [facility] Comment on above: Order Comment: Speci men Type: BLOOD SPECIMENOrdering Facility: [facility] Address: [address] [place], [place] [address] Performed By: #### 5 8410-2 ####[facility] [id number] [place] [address] [place] RBC (Bld) [#/Vol] 2.52 10*6/uL Low 4.20-6.00 [facility] Comment on above: Order Comment: Speci men Type: BLOOD SPECIMENOrdering Facility: [facility] Address: [address] [place], [place] [address] Performed By: #### 5 8410-2 ####[facility] LABCLIA [id number] [place] [address] [facility] [place] WBC (Bld) [#/Vol] 37.75 10*3/uL High 3.70-11.00 [facility] Comment on above: Order Comment: Speci men Type: BLOOD SPECIMENOrdering Facility: [facility] Address: [address] [place] [address] Performed By: #### 5 8410-2 ####[facility] LABCLIA [id number] [address] OF [facility] CNDSon 12-11-2022 CNDS HNO ID: [id number] Author: Carole Pascal MD Service: General Internal Medicine Author Type: Physician Type: Discharge Summary Filed: 12/23/2022 10:47 AM Note Text: DISCHARGE SUMMARY PATIENT NAME: Adina David ADMISSION DATE: 12/01/2022 DISCHARGE DATE: 12/11/2022 ATTENDING PHYSICIAN: Carole Pascal MD Code Status: Full Code PCP: Ulises Ramos DO Highest Readmission Risk Score: 31 The 30 day readmissions risk score is derived from an internally validated risk model which evaluates patient level characteristics, utilization history, medication orders and lab results up until the day of discharge. Patients with a score of 40 or above are considered highest risk for readmission. Specific patient level drivers will be listed at the bottom of the summary. TRANSITIONS OF CARE CRITICAL ISSUES: BAUM MEDICATION CHANGES: - Start Subq Lovenox 40 mg daily - Decrease to metoprolol 12.5 mg BID LAB MONITORING NEEDED: Will need CBC/BMP to assess creatine clearance while on Lovenox. Labs ordered for 2 weeks. Has vascular follow-up on 01/10. IMAGING FOLLOW-UP: Will be scheduled by outpatient Oncologist, Dr. Halle Dale. LABS AND PROCEDURES PENDING AT DISCHARGE: Histoplasma urine antigen and fungal battery FOLLOW UP: Vascular Surgery on 01/10. Oncology appointment 03/05/23, will be rescheduled for sooner date. Follow-up with PCP, early date requested. REASON FOR HOSPITALIZATION: SOB, fatigue PRINCIPAL DIAGNOSIS: Viral URI SECONDARY DIAGNOSIS: Principal Problem: Pulmonary embolism, unspecified chronicity, unspecified pulmonary embolism type, unspecified whether acute cor pulmonale present (HCC) (POA: Yes) Active Problems: Coronary artery disease involving [place] coronary artery of [place] heart without angina pectoris (POA: Unknown) Other emphysema (HCC) (POA: Unknown) Chronic deep vein thrombosis (DVT) of proximal vein of left lower extremity (HCC) (POA: Unknown) AVM (arteriovenous malformation) (POA: Unknown) History of gastrointestinal bleeding (POA: Unknown) Tachycardia (POA: Unknown) Elevated troponin (POA: Unknown) Pulmonary nodules (POA: Unknown) Resolved Problems: * No resolved hospital problems. * HOSPITAL COURSE: Adina David is a 67 y/o M with pmhx renal carcinoma (2018) s/p R nephrectomy, CLL (2018), Essential thrombocythemia on hydrea, DVT previously on eliquis, multiple prior GIB, CAD s/p PCI, CKD III, BPH, COPD, CIRA who presented 12/01 for SOB and fatigue. He reported the SOB dating back to September 2022. O2 sat at home 90-94%. # Enlarging pulmonary nodules # Enlarging mediastinal and hilar lymphadenopathy CT PE significant for chronic right lower lobe segmental PE, also demonstrating interval worsening/enlargement of hilar mediastinal lymphadenopathy as well as enlarging pulmonary nodules. The increase in size of pulmonary nodules as well as worsening hilar and mediastinal lymphadenopathy raises questions whether his worsening and overall fatigue is due to worsening of CLL. PET CT was completed which was not definitive for malignancy. PET CT with low level FDG activity in [place], intrathoracic LAD low to mild FDG, with low level in the mild right basilar opacities. ID was consulted and infectious work-up was conducted which was only positive for rhinovirus. Fungal and bacterial work-up was negative. Symptoms thought to be unlikely infectious in etiology as it is extremely unlikely for patient to have had symptomatic rhinovirus for the past 3 months. Outpatient oncologist inquired about possibility of tissue biopsy. Pulmonology was consulted for EBUS with biopsy, but stated it was not possible given small size of nodules. Lymphoma service was contacted who recommended repeat imaging after infectious workup complete and follow-up with Primary Oncologist. He will likely require initiating treatment of CLL at some point, but not in the acute setting. Desaturation study was completed which showed patient did not require oxygen at rest or with ambulation. Plan: - F/u remaining infectious workup including fungal battery and Histoplasma. - Lymphoma service consulted; appreciate recs - pulmonary consulted, No indication for bronchoscopy or EBUS at this time, Difficult to biopsy at this time given small size of lymph nodes and nodules. Repeat imaging outpatient once infectious workup is complete - Outpatient follow-up with primary Oncologist Dr. Arias with possible initiation of treatment of CLL - Needs biopsy, likely to occur outpatient - ID following, signed off at this time # Chronic RLL segmental PE # Hypercoagulable state iso malignancy # Noncompliance with anticoagulation # Anticoagulation c/b GI bleeds Suspect PE likely originates from chronic DVT in a setting of active malignancy, essential thrombocythemia, and lack of compliance with therapeutic anticoagulation. PESI score of 119 put patient on Class IV high risk group. Antic (more content not included)... Normal [facility] CONSULT PROGon 12-11-2022 CONSULT PROG HNO ID: [id number] Author: Yolette Grajeda APRN.STUDIO PRODUCER Service: Vascular Medicine Author Type: Nurse Practitioner Type: Consult Progress Note Filed: 12/11/2022 12:15 PM Note Text: VASC MED CONSULT PROGRESS NOTE Subjective Follow Up Regarding: history of PE/DVT INTERVAL HPI : platelets 423 hg 8.4 S: sitting up in bed, gave himself his lovenox shot, ok w/plan to go home on lovenox Current Facility-Administered Medications Medication Dose Route Frequency enoxaparin 40 mg injection (LOVENOX) 40 mg SUBCUTANEOUS q 24 HR sodium bicarbonate 650 mg tab(s) 650 mg ORAL BID docosanol 10 % (ABREVA) TOPICAL 5X/DAY metoprolol tartrate (short acting) 12.5 mg tab(s) (LOPRESSOR) 12.5 mg ORAL BID arformoterol 15 mcg nebulizer solution (BROVANA) 15 mcg INHALATION q 12 H budesonide 0.25 mg/2 mL 0.25 mg (PULMICORT) 0.25 mg INHALATION BID ipratropium-albuterol 3 mL nebulizer solution (DUONEB) 3 mL INHALATION q 6 H PRN hydroxyurea 1,000 mg cap(s) (HYDREA) 1,000 mg ORAL DAILY iv contrast (radiology procedure) INTRAVENOUS DIRECTED PRN iv contrast (radiology procedure) INTRAVENOUS DIRECTED PRN NaCl 0.9% iv flush bag 20 mL INTRAVENOUS PRN acetaminophen 650 mg tab(s) (TYLENOL) 650 mg ORAL q 6 H PRN melatonin 1 mg tab(s) 1 mg ORAL DAILY (8 PM) aspirin 81 mg chewable tab(s) 81 mg ORAL/FEEDING TUBE DAILY pantoprazole DR 40 mg tab(s) (PROTONIX) 40 mg ORAL DAILY (6 AM) zolpidem 5 mg tab(s) (AMBIEN) 5 mg ORAL AT BEDTIME PRN Objective PHYSICAL EXAM: Vital Signs: BP 98/61 Pulse 110 Temp 36.8 ?C (98.2 ?F) (Oral) Resp 18 Ht 177.8 cm (5' 10 ) Wt 81.1 kg (178 lb 11.2 oz) SpO2 96% BMI 25.64 kg/m? General: alert and oriented x3 Neck: supple Cardiac: RRR, no murmur Respiratory: clear bilaterally Abdomen: soft, non-tender Skin: warm, dry Pulse/Vascular exam: bilateral +2 rad/DP/PT LE: no swelling DATA: Diagnostic tests reviewed for today's visit: Most recent labs and imaging results. CBC, Coags, BMP, Mg, Phos Recent Labs 12/11/22 0914 12/10/22 0606 12/09/22 0813 12/08/22 1858 12/08/22 1714 WBC 37.75* 43.34* 34.52* -- 36.26* HB 8.4* 8.7* 8.5* -- 8.2* HCT 28.3* 28.8* 27.9* -- 27.1* PLT 423* 446* 421* -- 436* NA -- 133* 133* 132* 133* K -- 5.3* 4.7 4.8 5.2* CHLOR -- 100 101 100 102 CO2 -- 19* 19* 19* 18* BUN -- 41* 35* 34* 34* CREAT -- 2.26* 2.10* 2.35* 2.37* GLUC -- 85 102* 111* 99 CA -- 10.9* 10.2 10.3* 10.0 MG -- 1.7 1.7 1.7 -- P -- -- -- 4.1 4.5 IMPRESSION/PLAN 67 y/o male w/ PmHx: -active CLL (2017) has received no treatment -renal cell carcinoma s/p R radical nephrectomy (2017) -ET (on hydroxyurea) -L femoral DVT (2020) in the setting of recent knee surgery treated w/ Eliquis x 6 months d/c'd d/t GIB - L occlusive popliteal DVT (06/2022) resumed on Eliquis 2.5mg BID, d'cd 10/2022 d/t GIB -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 CT PE revealed chronic RLL segmental PE. LE negative for acute DVT. He was found to have enlarging nodules and mediastinal/hilar LND. He is currently on prophylactic SQ heparin injections. Hemoglobin and platelets are stable with no clinical signs of bleeding. Reason for AC: high risk for recurrent VTE in the setting of active malignancy and ET. Per primary team discussion w/GI, risk of recurrent bleeding as AVM was treated w/APC Estimated Creatinine Clearance: 31.9 mL/min (A) (based on SCr of 2.26 mg/dL (H)). Plan discussed w/ Dr. Lund: Recommend discharge pt on Lovenox 40mg once daily w/f/u with vas med 1 month to consider escalation of AC (apt requested) low threshold to hold AC if any signs of bleeding Check daily CBC/PLTs and BMP Duration of treatment long-term Patient to f/u in one month>>currently being scheduled following. SIGNATURE: Yolette Grajeda APRN.ALCIDES PATIENT NAME: Adina David DATE: December 11, 2022 TIME: 12:07 PM pager: [phone] . Normal [facility] Magnesium SerPl-mCncon 12-11 Magnesium [Mass/Vol] 1.5 mg/dL Low 1.7-2.3 [facility] Comment on above: Order Comment: Speci men Type: BLOOD SPECIMENOrdering Facility: [facility] Address: [address] [place] [address] Performed By: #### 1 9123-9, 71583-2 ####[facility] LABCLIA [id number] [address] OF [facility] THERAPY NTon 12-11-2022 THERAPY NT HNO ID: [id number] Author: Eileen Maldonado, PT, DPT Service: Physical Therapy Author Type: Physical Therapist Type: Therapy (PT/OT/Speech/Resp) Filed: 12/11/2022 9:06 AM Note Text: PHYSICAL THERAPY COMMUNICATION NOTE SERVICE DATE: 12/11/2022 SERVICE TIME: 905 ROOM: [place] [address] Physical therapy consult received. Chart reviewed. No acute skilled physical therapy needs identified. Pt with a documented Nursing 6 Clicks score of 23-24 indicating that the patient is supervised or independent with all mobility. Will discontinue Physical Therapy Consult at this time. Please re-consult if the patient has a change of condition and develops mobility deficits that require skilled therapy, and add a comment in the new order as to why the patient needs seen. Thank you. SIGNATURE: Eileen Maldonado, PT, DPT PATIENT NAME: Adina David DATE: December 11, 2022 TIME: 9:06 AM Normal [facility] TYPE + SCREENon 12-11-2022 ABO B Normal [facility] Comment on above: Order Comment: Speci men Type: BLOOD SPECIMENOrdering Facility: [facility] Address: [address] [place] [address] Performed By: #### T SCR ####CC MAIN BLOOD BANKCLIA [id number] [address] OF [facility] HISTORICAL AB SCR STATUS Negative Normal [facility] Comment on above: Order Comment: Speci men Type: BLOOD SPECIMENOrdering Facility: [facility] Address: [address] [place] [address] Performed By: #### T SCR ####CC MAIN BLOOD BANKCLIA [id number] [place] [address] [place] Rh Nom (Bld) Positive Normal [facility] Comment on above: Order Comment: Speci men Type: BLOOD SPECIMENOrdering Facility: [facility] Address: [address] [place] [address] Performed By: #### T SCR ####CC MAIN BLOOD BANKCLIA [id number] [place] [address] [place] TYPE AND SCREEN EXPIRATION 12/14/2022 23:59 Normal [facility] Comment on above: Order Comment: Speci men Type: BLOOD SPECIMENOrdering Facility: [facility] Address: [address] [place] [address] Performed By: #### T SCR ####CC [facility] BLOOD BANKCLIA [id number] [place] [address] [place] Basic metabolic 2000 panelon 12-10-2022 Anion gap [Moles/Vol] 14 mmol/L Normal 9-18 [facility] Comment on above: Order Comment: Speci men Type: BLOOD SPECIMENOrdering Facility: [facility] Address: [address] [place] [address] Performed By: #### 1 9123-9, 67735-2 ####[facility] LABCLIA [id number] [place] [address] [place] Calcium [Mass/Vol] 10.9 mg/dL High 8.5-10.2 [facility] Comment on above: Order Comment: Speci men Type: BLOOD SPECIMENOrdering Facility: [facility] Address: [address] [place], [place] [id number] Performed By: #### 1 9123-9, 17244-1 ####[facility] LABCLIA [id number] [place] [address] [place] Chloride [Moles/Vol] 100 mmol/L Normal 97-105 [facility] Comment on above: Order Comment: Speci men Type: BLOOD SPECIMENOrdering Facility: [facility] Address: [address] [address] Performed By: #### 1 9123-9, 52760-8 ####[facility] LABIA [id number] [place] [address] [place] CO2 [Moles/Vol] 19 mmol/L Low 22-30 [facility] Comment on above: Order Comment: Speci men Type: BLOOD SPECIMENOrdering Facility: [facility] Address: [address] [place] [address] Performed By: #### 1 91239, 97899-2 ####[facility] LABIA [id number] [address] [place] Creatinine [Mass/Vol] 2.26 mg/dL High 0.73-1.22 [facility] Comment on above: Order Comment: Speci men Type: BLOOD SPECIMENOrdering Facility: [facility] Address: [address] [place] [address] Performed By: #### 1 91239, 91616-3 ####[facility] [id number] [address] OF [facility] Creatinine and Glomerular filtration rate.predicted panel (S/P/Bld) 31 mL/min/1.73m??? Low >=60 [facility] Comment on above: Order Comment: Speci men Type: BLOOD SPECIMENOrdering Facility: [facility] Address: [address] [place] [address] Result Comment: Mady mated Glomerular Filtration Rate (eGFR) is calculated using the 2020 CKD-EPI creatinine equation. This equation utilizes serum creatinine, sex, and age as parameters. The creatinine assay has traceable calibration to isotope dilution-mass spectrometry. Refer to KDIGO guidelines for clinical interpretation. In patients with unstable renal function, e.g. those with acute kidney injury, the eGFR may not accurately reflect actual GFR. Performed By: #### 1 9123-9, 94622-3 ####[facility] LABIA [id number] [place] [address] [place] Glucose [Mass/Vol] 85 mg/dL Normal 74-99 [facility] Comment on above: Order Comment: Speci men Type: BLOOD SPECIMENOrdering Facility: [facility] Address: [address] [place] [address] Result Comment: The [place] Diabetes Association (ADA) provides guidance for cutoff values for fasting glucose and random glucose. The ADA defines fasting as no caloric intake for at least 8 hours. Fasting plasma glucose results between 100 to 125 mg/dL indicate increased risk for diabetes (prediabetes). Fasting plasma glucose results greater than or equal to 126 mg/dL meet the criteria for diagnosis of diabetes. In the absence of unequivocal hyperglycemia, results should be confirmed by repeat testing. In a patient with classic symptoms of hyperglycemia or hyperglycemic crisis, random plasma glucose results greater than or equal to 200 mg/dL meet the criteria for diagnosis of diabetes. Reference: Standards of Medical Care in Diabetes 2016, [place] [employer] Association. Diabetes Care. 2016.39(Suppl 1). Performed By: #### 1 9123-9, 43153-2 ####[facility] LABIA [id number] [place] [address] [place] Potassium [Moles/Vol] 5.3 mmol/L High 3.7-5.1 [facility] Comment on above: Order Comment: Speci men Type: BLOOD SPECIMENOrdering Facility: [facility] Address: [address] [address] Performed By: #### 1 9123-9, 61372-1 ####[facility] LABIA [id number] [place] [address] [place] Sodium [Moles/Vol] 133 mmol/L Low 136-144 [facility] Comment on above: Order Comment: Speci men Type: BLOOD SPECIMENOrdering Facility: [facility] Address: [address] [place] [address] Performed By: #### 1 9123-9, 21317-2 ####[facility] LABCLIA [id number] [place] [address] [place] Urea nitrogen [Mass/Vol] 41 mg/dL High 9-24 [facility] Comment on above: Order Comment: Speci men Type: BLOOD SPECIMENOrdering Facility: [facility] Address: [address] [place] [address] Performed By: #### 1 9123-9, 80772-3 ####[facility] LABCLIA [id number] [place] [address] [place] CBC panel Auto (Bld)on 12-10 Erythrocyte distribution width (RBC) [Ratio] 17.2 % High 11.5-15.0 [facility] Comment on above: Order Comment: Speci men Type: BLOOD SPECIMENOrdering Facility: [facility] Address: [address] [place] [address] Performed By: #### 5 8410-2 ####[facility] LABIA [id number] [place] [address] [place] Hematocrit (Bld) [Volume fraction] 28.8 % Low 39.0-51.0 [facility] Comment on above: Order Comment: Speci men Type: BLOOD SPECIMENOrdering Facility: [facility] Address: [address] [place] [address] Performed By: #### 5 8410-2 ####[facility] LABCLIA [id number] [place] [address] [place] Hemoglobin (Bld) [Mass/Vol] 8.7 g/dL Low 13.0-17.0 [facility] Comment on above: Order Comment: Speci men Type: BLOOD SPECIMENOrdering Facility: [facility] Address: [address] [place] [address] Performed By: #### 5 8410-2 ####[facility] LABCLIA [id number] [address] [place] [facility] MCH (RBC) [Entitic mass] 33.6 pg Normal 26.0-34.0 [facility] Comment on above: Order Comment: Speci men Type: BLOOD SPECIMENOrdering Facility: [facility] Address: [address] [place] [address] Performed By: #### 5 8410-2 ####[facility] LABIA [id number] [address] [place] [facility] MCHC (RBC) [Mass/Vol] 30.2 g/dL Low 30.5-36.0 [facility] Comment on above: Order Comment: Speci men Type: BLOOD SPECIMENOrdering Facility: [facility] Address: [address] [place] [address] Performed By: #### 5 8410-2 ####[facility] LABCLIA [id number] [address] [place] MCV (RBC) [Entitic vol] 111.2 fL High 80.0-100.0 [facility] Comment on above: Order Comment: Speci men Type: BLOOD SPECIMENOrdering Facility: [facility] Address: [address] [place] [address] Performed By: #### 5 8410-2 ####[facility] LABIA [id number] [place] [address] [place] Nucleated RBC (Bld) [#/Vol] 10*3/uL Normal <0.01 [facility] Comment on above: Order Comment: Speci men Type: BLOOD SPECIMENOrdering Facility: [facility] Address: [address] [place], [place] [id number] Performed By: #### 5 8410-2 ####[facility] LABCLIA [id number] [address] [place] Platelet mean volume (Bld) [Entitic vol] 9.4 fL Normal 9.0-12.7 [facility] Comment on above: Order Comment: Speci men Type: BLOOD SPECIMENOrdering Facility: [facility] Address: [address] [place] [address] Performed By: #### 5 8410-2 ####[facility] LABCLIA [id number] [place] [address] [place] Platelets (Bld) [#/Vol] 446 10*3/uL High 150-400 [facility] Comment on above: Order Comment: Speci men Type: BLOOD SPECIMENOrdering Facility: [facility] Address: [address] [place] [address] Performed By: #### 5 8410-2 ####[facility] LABIA [id number] [place] [address] [place] RBC (Bld) [#/Vol] 2.59 10*6/uL Low 4.20-6.00 [facility] Comment on above: Order Comment: Speci men Type: BLOOD SPECIMENOrdering Facility: [facility] Address: [address] [place] [address] Performed By: #### 5 8410-2 ####[facility] LABIA [id number] [place] [address] [place] WBC (Bld) [#/Vol] 43.34 10*3/uL High 3.70-11.00 [facility] Comment on above: Order Comment: Speci men Type: BLOOD SPECIMENOrdering Facility: [facility] Address: [address] [place] [address] Performed By: #### 5 8410-2 ####[facility] LABIA [id number] [address] OF [facility] CONSULT PROGon 12-10-2022 CONSULT PROG HNO ID: [id number] Author: Sophie Avila APRN.STUDIO PRODUCER Service: Vascular Medicine Author Type: Nurse Practitioner Type: Consult Progress Note Filed: 12/10/2022 3:31 PM Note Text: VASC MED CONSULT PROGRESS NOTE Subjective Follow Up Regarding: history of PE/DVT INTERVAL HPI : Patient last seen on 12/[address] Gregorio for AC recommendations for history of PE/DVT in the setting of active CLL Recommendations at that time advised against the placement of IVC filter and aggressive DVT pharmacomechanical VTE prophylaxis while in house. We are asked to see patient today for recommendations for homegoing AC. He was seen by Hematology/Oncology for his active CLL. Recommendations were to treat as outpatient after he recovers from URI. Patient is planned for discharge to home in the next day or so. He is currently on heparin SQ prophylactic injections. He is denies any cp, sob or obvious signs of bleeding Hemoglobin 8.7 Platelets 446k Creatinine 2.26 Estimated Creatinine Clearance: 31.9 mL/min (A) (based on SCr of 2.26 mg/dL (H)). Current Facility-Administered Medications Medication Dose Route Frequency sodium polystyrene sulfonate (with sorbitol) 15 g liquid (SPS) 15 g ORAL ONCE sodium bicarbonate 650 mg tab(s) 650 mg ORAL BID docosanol 10 % (ABREVA) TOPICAL 5X/DAY metoprolol tartrate (short acting) 12.5 mg tab(s) (LOPRESSOR) 12.5 mg ORAL BID arformoterol 15 mcg nebulizer solution (BROVANA) 15 mcg INHALATION q 12 H budesonide 0.25 mg/2 mL 0.25 mg (PULMICORT) 0.25 mg INHALATION BID ipratropium-albuterol 3 mL nebulizer solution (DUONEB) 3 mL INHALATION q 6 H PRN hydroxyurea 1,000 mg cap(s) (HYDREA) 1,000 mg ORAL DAILY iv contrast (radiology procedure) INTRAVENOUS DIRECTED PRN iv contrast (radiology procedure) INTRAVENOUS DIRECTED PRN NaCl 0.9% iv flush bag 20 mL INTRAVENOUS PRN acetaminophen 650 mg tab(s) (TYLENOL) 650 mg ORAL q 6 H PRN melatonin 1 mg tab(s) 1 mg ORAL DAILY (8 PM) aspirin 81 mg chewable tab(s) 81 mg ORAL/FEEDING TUBE DAILY pantoprazole DR 40 mg tab(s) (PROTONIX) 40 mg ORAL DAILY (6 AM) zolpidem 5 mg tab(s) (AMBIEN) 5 mg ORAL AT BEDTIME PRN heparin 5,000 Units injection 5,000 Units SUBCUTANEOUS q 8 H Objective PHYSICAL EXAM: Vital Signs: BP 127/75 Pulse 106 Temp 37 ?C (98.6 ?F) (Oral) Resp 18 Wt 80 kg (176 lb 4.8 oz) SpO2 98% BMI 25.30 kg/m? General: alert AND oriented x3, NAD Neck: supple Cardiac: RRR, no murmur Respiratory: CTA bilaterally Abdomen: soft, non-tender Skin: warm, dry Pulse/Vascular exam: bilateral +2 radial/ulnar/DP/PT LE: no swelling DATA: Diagnostic tests reviewed for today's visit: Most recent labs and imaging results. CBC, Coags, BMP, Mg, Phos Recent Labs 12/10/22 0606 12/09/22 0813 12/08/22 1858 12/08/22 1714 WBC 43.34* 34.52* -- 36.26* HB 8.7* 8.5* -- 8.2* HCT 28.8* 27.9* -- 27.1* PLT 446* 421* -- 436* NA 133* 133* 132* 133* K 5.3* 4.7 4.8 5.2* CHLOR 100 101 100 102 CO2 19* 19* 19* 18* BUN 41* 35* 34* 34* CREAT 2.26* 2.10* 2.35* 2.37* GLUC 85 102* 111* 99 CA 10.9* 10.2 10.3* 10.0 MG 1.7 1.7 1.7 -- P -- -- 4.1 4.5 IMPRESSION/PLAN 67 year old male w/ PMH of: -active CLL (2017) has received no treatment -renal cell carcinoma s/p R radical nephrectomy (2017) -ET (on hydroxyurea) -L femoral DVT (2020) in the setting of recent knee surgery treated w/ Eliquis x 6 months d/c'd d/t GIB - L occlusive popliteal DVT (06/2022) resumed on Eliquis 2.5mg BID, d'cd 10/2022 d/t GIB -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 CT PE revealed chronic RLL segmental PE. LE negative for acute DVT. He was found to have enlarging nodules and mediastinal/hilar LND. He is currently on prophylactic SQ heparin injections. Hemoglobin and platelets are stable with no clinical signs of bleeding. Reason for AC: high risk for recurrent VTE in the setting of active malignancy and ET Estimated Creatinine Clearance: 31.9 mL/min (A) (based on SCr of 2.26 mg/dL (H)). Plan discussed w/ Dr. Lund: Recommend switching patient to Lovenox 40mg once daily Okay to use prophylactic w/ patient's borderline renal function Monitor patient closely for bleeding Check daily CBC/PLTs and BMP If tolerates, would consider discharging to home on this Monitor patient's renal closely, if CrCl falls below <30, consider another option for anticoagulation. Duration of treatment: for as patient can tolerate Patient to f/u in one month>>currently being scheduled following. SIGNATURE: Sophie Avila APRN.CNP PATIENT NAME: Adina David DATE: December 10, 2022 TIME: 12:46 PM pager: [phone] . Normal [facility] Magnesium SerPl-ncon 12-10 Magnesium [Mass/Vol] 1.7 mg/dL Normal 1.7-2.3 [facility] Comment on above: Order Comment: Speci men Type: BLOOD SPECIMENOrdering Facility: [facility] Address: [address] [place] [address] Performed By: #### 1 9123-9, 17353-1 ####[facility] LABCLIA [id number] [place] [address] [place] NUTRITIONon 12-10-2022 NUTRITION HNO ID: [id number] Author: Tony Powell RD Service: Nutrition Therapy Author Type: Registered Dietitian Type: Nutrition Filed: 12/10/2022 10:58 AM Note Text: NUTRITION THERAPY INITIAL ASSESSMENT SERVICE DATE: 12/10/2022 SERVICE TIME: 9:50am Nutrition Assessment: Recommended Malnutrition Diagnosis: Severe Protein-Calorie Malnutrition In the context of: Chronic Illness or Injury Based on: Insufficient Energy Intake, Unintentional Weight Loss Nutrition Diagnosis: Problem: Increased nutrient needs Related to: Chronic illness As evidenced by: Anorexia, Depletion of fat/muscle stores, Medical condition, Patient/family self-report, Weight loss, Imaging studies Estimated kilocalorie needs: 8928-6035 Calorie Calculation Method: 25-30 kcals/kg Estimated protein needs (grams): 80-96 Grams protein determined by: 1.0 - 1.2 g/kg Care Plan: Continue current diet Supplements: Boost Glucose Control Vitamins and Minerals: Renal vitamin Labs: Magnesium, Phosphorus, Potassium Monitor and Evaluation: Monitor labs, I/Os, vital signs, weight, Monitor fluid/electrolyte balance, Meet greater than 75% of estimated needs, Monitor bowel function Discharge Recommendations: Diet;Oral Supplements Diet: as tolerated Oral Supplements: high calorie, high protein oral nutrition supplements when PO is meeting <75% of estimated energy needs HPI: Per Timmy Pascal note on 12/01: This is a 67 year old male who presents to the ED with shortness of breath, fatigue, lightheadedness, present since 10/04. Relevant past medical history: - Clear-cell renal carcinoma: diagnosed in 2018, s/p right radical nephrectomy with no adjuvant treatment. CT chest 08/13/22 shows few pulmonary nodules < 1 cm, non specific finding, favors inflammatory or reactive process. - CLL: diagnosed in 2018. Mediastinal and abdominal adenopathy on CT Chest A/P. No treatment indicated as of yet. - Essential thrombocytopenia: on hydrea 500 mg BID since 04/2020 and baby ASA - DVT: 03/14/2021 DVT of indeterminate age in the common femoral vein possibly provoked by left femoral fracture s/p internal fixation 07/22/2020, treated with Eliquis but Dced due to major GI bleed 09/2021. 06/2022 found to have new occlusive DVT of the popliteal vein in LLE, chronic nonocclusive DVT in left femoral vein. Treated with Eliquis 2.5 mg BID c/b by GIB, colonoscopy shows: Multiple recently bleeding colonic angiodysplastic lesions. Treated with argon plasma coagulation (APC). 10/17/22 DVT US Positive study for chronic proximal DVT in the left lower extremity. Eliquis was stopped in early November. - GI bleed: 05/05 Bleeding AVMs in the distal duodenum/proximal jejunum on push enteroscopy requiring cautery and 7 pRBC units. Required pRBC transfusion on 08/16, 08/28, 10/10, with Multiple recently bleeding colonic angiodysplastic lesions. Treated with argon plasma coagulation (APC) on colonoscopy 10/09/22. Enteroscopy 10/09 recently bleeding angioectasia in the jejunum. Treated with argon plasma coagulation (APC). An area in the proximal ileum was tattooed near the point of maximal scope insertion. - CAD: 2018 80% occlusion of LAD, underwent PCI with drug-eluting stent - Chronic anemia : multifactorial, including CKDIII, GIB, iron deficiency, CLL, ET on hydrea. Baseline Hgb 8-10. - CKDIII - BPH - COPD - CIRA Intake History: Nutrition Intake Prior to Admission: Less than 75% estimated energy needs greater than or equal to 1 month Diet Orders (From admission, onward) Start Ordered 12/08/22 1215 SUPPLEMENT/SNACK PROVIDED START NOW Question Answer Comment Supplement 1 (19 years and up) BOOST GLUCOSE CONTROL CHOCOLATE Supplement 1 Frequency BREAKFAST Supplement 2 (19 years and up) BOOST GLUCOSE CONTROL CHOCOLATE Supplement 2 Frequency DINNER 12/08/22 1213 12/07/22 1415 DIET ELECTROLYTE CONTROLLED START NOW Question: Electrolytes Answer: 2 GM POTASSIUM 12/07/22 1404 Anthropometrics: Weight: 80 kg (176 lb 4.8 oz) Dosing Weight: 80 kg (176 lb 5.9 oz) Body mass index is 25.3 kg/m?. Weight change percentage over time: 15% weight loss X 6 months per epic records Physical Exam: Subcutaneous fat loss: Mild Muscle loss: Moderate Potential micronutrient deficiency: No deficiency identified Edema/Ascites: No edema GI Symptoms: Anorexia Functional Status: Not related to malnutrition status Potential Signs of Inflammation: Chronic condition, Leukocytosis, Imaging studies, Microbiologic cultures MNT Billing: $ Initial Assessment: 16-30 minutes SIGNATURE: Tony Powell RD PATIENT NAME: Adina David DATE: December 10, 2022 TIME: 10:57 AM Normal [facility] Basic metabolic 2000 panelon 12-09-2022 Anion gap [Moles/Vol] 13 mmol/L Normal 9-18 [facility] Comment on above: Order Comment: Speci men Type: BLOOD SPECIMENOrdering Facility: [facility] Address: [address] Performed By: #### 2 4320-2, ####[facility] LABCLIA [id number] [place] [address] [place] Calcium [Mass/Vol] 10.2 mg/dL Normal 8.5-10.2 [facility] Comment on above: Order Comment: Speci men Type: BLOOD SPECIMENOrdering Facility: [facility] Address: [address] Performed By: #### 2 4320-2, ####[facility] LABCLIA [id number] [place] [address] [place] Chloride [Moles/Vol] 101 mmol/L Normal 97-105 [facility] Comment on above: Order Comment: Speci men Type: BLOOD SPECIMENOrdering Facility: [facility] Address: [address] Performed By: #### 2 4320-2, ####[facility] LABCLIA [id number] [place] [address] [place] CO2 [Moles/Vol] 19 mmol/L Low 22-30 [facility] Comment on above: Order Comment: Speci men Type: BLOOD SPECIMENOrdering Facility: [facility] Address: [address] [place] [address] Performed By: #### 2 4320-2, ####[facility] LABCLIA [id number] [place] [address] [place] Creatinine [Mass/Vol] 2.10 mg/dL High 0.73-1.22 [facility] Comment on above: Order Comment: Speci men Type: BLOOD SPECIMENOrdering Facility: [facility] Address: [address] Performed By: #### 2 4320-2, ####[facility] LABCLIA [id number] [address] Creatinine and Glomerular filtration rate.predicted panel (S/P/Bld) 33 mL/min/1.73m??? Low >=60 [facility] Comment on above: Order Comment: Kaylee christianson Type: BLOOD SPECIMENOrdering Facility: [facility] Address: [address] [place] [address] Result Comment: Mady mated Glomerular Filtration Rate (eGFR) is calculated using the 2020 CKD-EPI creatinine equation. This equation utilizes serum creatinine, sex, and age as parameters. The creatinine assay has traceable calibration to isotope dilution-mass spectrometry. Refer to KDIGO guidelines for clinical interpretation. In patients with unstable renal function, e.g. those with acute kidney injury, the eGFR may not accurately reflect actual GFR. Performed By: #### 2 432-, ####[facility] LABCLIA [id number] [address] OF [facility] Glucose [Mass/Vol] 102 mg/dL High 74-99 [facility] Comment on above: Order Comment: Kaylee christianson Type: BLOOD SPECIMENOrdering Facility: [facility] Address: [address] [place] [address] Result Comment: The [place] Diabetes [employer] (ADA) provides guidance for cutoff values for fasting glucose and random glucose. The ADA defines fasting as no caloric intake for at least 8 hours. Fasting plasma glucose results between 100 to 125 mg/dL indicate increased risk for diabetes (prediabetes). Fasting plasma glucose results greater than or equal to 126 mg/dL meet the criteria for diagnosis of diabetes. In the absence of unequivocal hyperglycemia, results should be confirmed by repeat testing. In a patient with classic symptoms of hyperglycemia or hyperglycemic crisis, random plasma glucose results greater than or equal to 200 mg/dL meet the criteria for diagnosis of diabetes. Reference: Standards of Medical Care in Diabetes 2016, [place] [employer]. Diabetes Care. 2016.39(Suppl 1). Performed By: #### 2 432-, ####[facility] LABCLIA [id number] [place] [address] [place] Potassium [Moles/Vol] 4.7 mmol/L Normal 3.7-5.1 [facility] Comment on above: Order Comment: Speci men Type: BLOOD SPECIMENOrdering Facility: [facility] Address: [address] [place] [address] Performed By: #### 2 4321-2, ####[facility] LABCLIA [id number] [place] [address] [place] Sodium [Moles/Vol] 133 mmol/L Low 136-144 [facility] Comment on above: Order Comment: Speci men Type: BLOOD SPECIMENOrdering Facility: [facility] Address: [address] [place] [address] Performed By: #### 2 4321-2, ####[facility] LABIA [id number] [place] [address] [place] Urea nitrogen [Mass/Vol] 35 mg/dL High 9-24 [facility] Comment on above: Order Comment: Speci men Type: BLOOD SPECIMENOrdering Facility: [facility] Address: [address] [place] [address] Performed By: #### 2 4321-2, ####[facility] LABIA [id number] [place] [address] [place] CBC panel Auto (Bld)on 12-09 Erythrocyte distribution width (RBC) [Ratio] 17.1 % High 11.5-15.0 [facility] Comment on above: Order Comment: Speci men Type: BLOOD SPECIMENOrdering Facility: [facility] Address: [address] [place] [address] Performed By: #### 5 8410-2 ####[facility] LABIA [id number] [place] [address] [place] Hematocrit (Bld) [Volume fraction] 27.9 % Low 39.0-51.0 [facility] Comment on above: Order Comment: Speci men Type: BLOOD SPECIMENOrdering Facility: [facility] Address: [address] [place] [address] Performed By: #### 5 8410-2 ####[facility] LABCLIA [id number] [address] [place] Hemoglobin (Bld) [Mass/Vol] 8.5 g/dL Low 13.0-17.0 [facility] Comment on above: Order Comment: Speci men Type: BLOOD SPECIMENOrdering Facility: [facility] Address: [address] [place] [address] Performed By: #### 5 8410-2 ####[facility] LABCLIA [id number] [address] MCH (RBC) [Entitic mass] 33.9 pg Normal 26.0-34.0 [facility] Comment on above: Order Comment: Speci men Type: BLOOD SPECIMENOrdering Facility: [facility] Address: [address] [place], [place] [address] Performed By: #### 5 8410-2 ####[facility] LABIA [id number] [address] STATES OF [facility] MCHC (RBC) [Mass/Vol] 30.5 g/dL Normal 30.5-36.0 [facility] Comment on above: Order Comment: Speci men Type: BLOOD SPECIMENOrdering Facility: [facility] Address: [address] [place], [place] [address] Performed By: #### 5 8410-2 ####[facility] LABCLIA [id number] [address] [place] MCV (RBC) [Entitic vol] 111.2 fL High 80.0-100.0 [facility] Comment on above: Order Comment: Speci men Type: BLOOD SPECIMENOrdering Facility: [facility] Address: [address] Performed By: #### 5 8410-2 ####[facility] [id number] [place] [address] [place] Nucleated RBC (Bld) [#/Vol] 10*3/uL Normal <0.01 [facility] Comment on above: Order Comment: Speci men Type: BLOOD SPECIMENOrdering Facility: [facility] Address: [address] Performed By: #### 5 8410-2 ####[facility] LABIA [id number] [place] [address] [place] Platelet mean volume (Bld) [Entitic vol] 9.4 fL Normal 9.0-12.7 [facility] Comment on above: Order Comment: Speci men Type: BLOOD SPECIMENOrdering Facility: [facility] Address: [address] Performed By: #### 5 8410-2 ####[facility] LABIA [id number] [place] [address] [place] Platelets (Bld) [#/Vol] 421 10*3/uL High 150-400 [facility] Comment on above: Order Comment: Speci men Type: BLOOD SPECIMENOrdering Facility: [facility] Address: [address] [place] [address] Performed By: #### 5 8410-2 ####[facility] LABIA [id number] [place] [address] [place] RBC (Bld) [#/Vol] 2.51 10*6/uL Low 4.20-6.00 [facility] Comment on above: Order Comment: Speci men Type: BLOOD SPECIMENOrdering Facility: [facility] Address: [address] Performed By: #### 5 8410-2 ####[facility] LABCLIA [id number] [place] [address] [place] WBC (Bld) [#/Vol] 34.52 10*3/uL High 3.70-11.00 [facility] Comment on above: Order Comment: Speci men Type: BLOOD SPECIMENOrdering Facility: [facility] Address: [address] [place] [address] Performed By: #### 5 8410-2 ####[facility] LABCLIA [id number] [address] OF [place] CNCOon 12-09-2022 CNCO Letter Text Normal [facility] CONSULTon 12-09-2022 CONSULT HNO ID: [id number] Author: Kristi Humphreys MD Service: Hematology/Oncology Author Type: Fellow Type: Consults Filed: 12/09/2022 5:51 PM Note Text: Attestation signed by Ki Levin MD at 12/10/2022 10:52 PM Attending Note I have personally performed a face to face assessment of the patient and have reviewed the DOMENIC note. I performed a substantive portion of the visit including all aspects of the following. My baum findings include: Please see the excellent consult note above for a detailed rendering of the patient's past medical history and present recommendations. Briefly, Mr. 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 He noted an approximate 15 pound weight loss over the last 3 months as well as intermittent night sweats over 2 to 3 weeks prior to current visit. Shortness of breath has been longstanding since around June 2022 with acute worsening. Over the course of his hospitalization, he has been diagnosed with a chronic RLL PE as well as rhinovirus on respiratory panel. Currently, the patient is on room air. As part of his initial work-up, his primary team ordered a PET/CT scan that revealed diffuse bronchial wall thickening associated with low-level FDG activity, subcentimeter pulmonary nodules without increased FDG activity, and intrathoracic lymphadenopathy with low-level mild FDG activity with the largest visible node measuring 1.3 cm had an SUV of 3.6. His total WBC count and hemoglobin levels are very close to his baseline over the past several months. Pulmonology was consulted to perform a biopsy of his intrathoracic lymph nodes; however, that team feels like lymph nodes are not large enough to reliably biopsy via EBUS. With regard to his CLL, there is no immediate need for biopsy of these very small mediastinal lymph nodes at present. It is possible that his underlying CLL contributes to his weight loss and fatigue but, even in that setting, there is no indication for inpatient therapy while the patient is potentially infected. Unfortunately, I do not have cytogenetics, FISH, or IgHV mutational status available to me at this present time. 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 In the meantime, I would use a great deal of caution and reordering PET/CT scans for this patient has many patients with CLL will have FDG avid nodes and invasive biopsy is rarely indicated in these cases. My suspicion that these nodes or his metabolically inert pulmonary nodules represent recurrent RCC is extremely low. The lymphoma and myeloma team will sign off at this point please do not hesitate to contact us with further questions or concerns. Signature: Ki Levin MD Date: 12/10/2022 Time: 10:37 PM [facility] LYMPHOMA/MYELOMA SERVICE - INITIAL CONSULT DATE OF SERVICE: 12/09/2022 TIME OF SERVICE: 3:17 PM PRIMARY TEAM: Reason for consult: History of Present Illness: Mr. David is a 67 year old male with a past medical history significant for clear cell RCC s/p right nephrectomy in 2018, CLL (diagnosed in 2018, without requiring treatment till present), essential thrombocytosis on hydroxyurea, DVT not on anticoagulation due GI bleeding from AVMs, diverticulitis s/p bowel resection, CAD s/p PCI, COPD, former smoker (5 pack year) and CIRA who presented for evaluation for chronic dyspnea on exertion that was progressively worsening. Patient reports shortness of breath and cough since June 2022 but acutely worsened over the last week. Cough is currently not productive. No hemoptysis. Patient reports due to initial dyspnea on exertion, with progression to dyspnea at rest, he came in for further evaluation. He has been hospitalized for workup of his dyspnea. Today is hospital day 8. CTPE protocol showed a chronic RLL pulmonary embolism. Incidentally noted were enlarging sub centimeter pulmonary nodules and worsening hilar/mediastinal lymphadenopathy. Ground glass opacities were also among the findings seen and infectious diseases was consulted. Infectious work (more content not included)... Normal [facility] Magnesium SerPl-mCncon 12-09 Magnesium [Mass/Vol] 1.7 mg/dL Normal 1.7-2.3 [facility] Comment on above: Order Comment: Speci men Type: BLOOD SPECIMENOrdering Facility: [facility] Address: [address] [place] [address] Performed By: #### 2 4321-2, 14674-2 ####[facility] LABCLIA [id number] [facility] CENTEREstrellita [facility] [id number] [place] [address] [place] Albumin SerPl-mCncon 023 Albumin [Mass/Vol] 4.0 g/dL Normal 3.9-4.9 [facility] Comment on above: Order Comment: Speci men Type: BLOOD SPECIMENOrdering Facility: [facility] Address: [address] [place] [address] Performed By: #### 2 4321-2, 1750-10, 2776-04, ####[facility] LABCLIA [id number] [place] [id number] [place] Basic metabolic 2000 panelon 12-08-2022 Anion gap [Moles/Vol] 13 mmol/L Normal 9-18 [facility] Comment on above: Order Comment: Speci men Type: BLOOD SPECIMENOrdering Facility: [facility] Address: [address] [place] [address] Performed By: #### 2 4321-2, 1750-10, 2776-04, ####[facility] LABCLIA [id number] [place] [address] [place] Calcium [Mass/Vol] 10.3 mg/dL High 8.5-10.2 [facility] Comment on above: Order Comment: Speci men Type: BLOOD SPECIMENOrdering Facility: [facility] Address: [address] [place] [address] Performed By: #### 2 4321-2, 1750-10, 2776-04, ####[facility] LABCLIA [id number] [place] [id number] [place] Chloride [Moles/Vol] 100 mmol/L Normal 97-105 [facility] Comment on above: Order Comment: Speci men Type: BLOOD SPECIMENOrdering Facility: [facility] Address: [address] [place], [place] [address] Performed By: #### 2 4321-2, 1750-10, 2776-04, ####[facility] LABCLIA [id number] [place] [id number] [place] CO2 [Moles/Vol] 19 mmol/L Low 22-30 [facility] Comment on above: Order Comment: Speci men Type: BLOOD SPECIMENOrdering Facility: [facility] Address: [address] [place] [address] Performed By: #### 2 4321-2, 7, 2776-04, ####[facility] LABCLIA [id number] [place] [address] [place] Creatinine [Mass/Vol] 2.35 mg/dL High 0.73-1.22 [facility] Comment on above: Order Comment: Speci men Type: BLOOD SPECIMENOrdering Facility: [facility] Address: [address] [place] [address] Performed By: #### 2 4321-2, 1750-10, 2776-04, ####[facility] LABIA [id number] [address] STATES OF [facility] Creatinine and Glomerular filtration rate.predicted panel (S/P/Bld) 29 mL/min/1.73m??? Low >=60 [facility] Comment on above: Order Comment: Kaylee christianson Type: BLOOD SPECIMENOrdering Facility: [facility] Address: [address] [place] [address] Result Comment: Mady mated Glomerular Filtration Rate (eGFR) is calculated using the 2020 CKD-EPI creatinine equation. This equation utilizes serum creatinine, sex, and age as parameters. The creatinine assay has traceable calibration to isotope dilution-mass spectrometry. Refer to KDIGO guidelines for clinical interpretation. In patients with unstable renal function, e.g. those with acute kidney injury, the eGFR may not accurately reflect actual GFR. Performed By: #### 2 4321-2, 1750-10, 2776-04, ####[facility] LABCLIA [id number] [place] [id number] [place] Glucose [Mass/Vol] 111 mg/dL High 74-99 [facility] Comment on above: Order Comment: Speci men Type: BLOOD SPECIMENOrdering Facility: [facility] Address: [address] [place] [address] Result Comment: The [place] Diabetes [employer] (ADA) provides guidance for cutoff values for fasting glucose and random glucose. The ADA defines fasting as no caloric intake for at least 8 hours. Fasting plasma glucose results between 100 to 125 mg/dL indicate increased risk for diabetes (prediabetes). Fasting plasma glucose results greater than or equal to 126 mg/dL meet the criteria for diagnosis of diabetes. In the absence of unequivocal hyperglycemia, results should be confirmed by repeat testing. In a patient with classic symptoms of hyperglycemia or hyperglycemic crisis, random plasma glucose results greater than or equal to 200 mg/dL meet the criteria for diagnosis of diabetes. Reference: Standards of Medical Care in Diabetes 2016, [place] [employer]. Diabetes Care. 2016.39(Suppl 1). Performed By: #### 2 4321-2, 7, 2776-04, ####[facility] LABIA [id number] [place] [address] [place] Potassium [Moles/Vol] 4.8 mmol/L Normal 3.7-5.1 [facility] Comment on above: Order Comment: Kaylee christianson Type: BLOOD SPECIMENOrdering Facility: [facility] Address: [address] [place], [place] [address] Performed By: #### 2 4321-2, 1750-10, 2776-04, ####[facility] LABIA [id number] [place] [address] [place] Sodium [Moles/Vol] 132 mmol/L Low 136-144 [facility] Comment on above: Order Comment: Kaylee christianson Type: BLOOD SPECIMENOrdering Facility: [facility] Address: [address] [place], [place] [address] Performed By: #### 2 4321-2, 7, 2776-04, ####[facility] LABCLIA [id number] [place] [address] [place] Urea nitrogen [Mass/Vol] 34 mg/dL High 9-24 [facility] Comment on above: Order Comment: Speci men Type: BLOOD SPECIMENOrdering Facility: [facility] Address: [address] [place] [address] Performed By: #### 2 4321-2, 1751-7, 2777-1, 67029-5 ####[facility] LABCLIA [id number] [place] [address] [place] CBC panel Auto (Bld)on 12-08 Erythrocyte distribution width (RBC) [Ratio] 17.0 % High 11.5-15.0 [facility] Comment on above: Order Comment: Speci men Type: BLOOD SPECIMENOrdering Facility: [facility] Address: [address] [place] [address] Performed By: #### 5 8410-2 ####[facility] LABCLIA [id number] [place] [address] [place] Hematocrit (Bld) [Volume fraction] 27.1 % Low 39.0-51.0 [facility] Comment on above: Order Comment: Speci men Type: BLOOD SPECIMENOrdering Facility: [facility] Address: [address] [place] [address] Performed By: #### 5 8410-2 ####[facility] LABCLIA [id number] [place] [address] [place] Hemoglobin (Bld) [Mass/Vol] 8.2 g/dL Low 13.0-17.0 [facility] Comment on above: Order Comment: Speci men Type: BLOOD SPECIMENOrdering Facility: [facility] Address: [address] [place] [address] Performed By: #### 5 8410-2 ####[facility] LABCLIA [id number] [place] [address] [place] MCH (RBC) [Entitic mass] 33.9 pg Normal 26.0-34.0 [facility] Comment on above: Order Comment: Speci men Type: BLOOD SPECIMENOrdering Facility: [facility] Address: [address] [place], [place] [address] Performed By: #### 5 8410-2 ####[facility] LABIA [id number] [place] [address] [place] MCHC (RBC) [Mass/Vol] 30.3 g/dL Low 30.5-36.0 [facility] Comment on above: Order Comment: Speci men Type: BLOOD SPECIMENOrdering Facility: [facility] Address: [address] [place], [place] [address] Performed By: #### 5 8410-2 ####[facility] LABIA [id number] [place] [address] [place] MCV (RBC) [Entitic vol] 112.0 fL High 80.0-100.0 [facility] Comment on above: Order Comment: Speci men Type: BLOOD SPECIMENOrdering Facility: [facility] Address: [address] [place], [place] [address] Performed By: #### 5 8410-2 ####[facility] LABIA [id number] [place] [address] [place] Nucleated RBC (Bld) [#/Vol] 10*3/uL Normal <0.01 [facility] Comment on above: Order Comment: Speci men Type: BLOOD SPECIMENOrdering Facility: [facility] Address: [address] [place], [place] [address] Performed By: #### 5 8410-2 ####[facility] LABIA [id number] [place] [address] [place] Platelet mean volume (Bld) [Entitic vol] 9.2 fL Normal 9.0-12.7 [facility] Comment on above: Order Comment: Speci men Type: BLOOD SPECIMENOrdering Facility: [facility] Address: [address] [place] [address] Performed By: #### 5 8410-2 ####[facility] LABCLIA [id number] [place] [address] [facility] [place] Platelets (Bld) [#/Vol] 436 10*3/uL High 150-400 [facility] Comment on above: Order Comment: Speci men Type: BLOOD SPECIMENOrdering Facility: [facility] Address: [address] [place] [address] Performed By: #### 5 8410-2 ####[facility] LABIA [id number] [address] RBC (Bld) [#/Vol] 2.42 10*6/uL Low 4.20-6.00 [facility] Comment on above: Order Comment: Speci men Type: BLOOD SPECIMENOrdering Facility: [facility] Address: [address] [place] [address] Performed By: #### 5 8410-2 ####[facility] LABIA [id number] [place] [address] [facility] [place] WBC (Bld) [#/Vol] 36.26 10*3/uL High 3.70-11.00 [facility] Comment on above: Order Comment: Speci men Type: BLOOD SPECIMENOrdering Facility: [facility] Address: [address] [place] [address] Performed By: #### 5 8410-2 ####[facility] LABIA [id number] [address] OF [facility] CONSULT PROGon 12-08-2022 CONSULT PROG HNO ID: [id number] Author: Quintin Haywood MD Service: Infectious Disease Author Type: Physician Type: Consult Progress Note Filed: 12/08/2022 8:59 PM Note Text: PROGRESS NOTE INFECTIOUS DISEASE SERVICE DATE: 12/08/2022 Subjective Interval Events: No fever. More consistently on room air. No major change in how he feels subjectively. Medications: Current Facility-Administered Medications Medication Dose Route Frequency iv contrast (radiology procedure) INTRAVENOUS DIRECTED PRN iv contrast (radiology procedure) INTRAVENOUS DIRECTED PRN NaCl 0.9% iv flush bag 20 mL INTRAVENOUS PRN acetaminophen 650 mg tab(s) (TYLENOL) 650 mg ORAL q 6 H PRN melatonin 1 mg tab(s) 1 mg ORAL DAILY (8 PM) aspirin 81 mg chewable tab(s) 81 mg ORAL/FEEDING TUBE DAILY pantoprazole DR 40 mg tab(s) (PROTONIX) 40 mg ORAL DAILY (6 AM) zolpidem 5 mg tab(s) (AMBIEN) 5 mg ORAL AT BEDTIME PRN heparin 5,000 Units injection 5,000 Units SUBCUTANEOUS q 8 H ipratropium-albuterol 3 mL nebulizer solution (DUONEB) 3 mL INHALATION q 6 H PRN hydroxyurea 1,000 mg cap(s) (HYDREA) 1,000 mg ORAL DAILY arformoterol 15 mcg nebulizer solution (BROVANA) 15 mcg INHALATION q 12 H budesonide 0.25 mg/2 mL 0.25 mg (PULMICORT) 0.25 mg INHALATION BID docosanol 10 % (ABREVA) TOPICAL 5X/DAY metoprolol tartrate (short acting) 12.5 mg tab(s) (LOPRESSOR) 12.5 mg ORAL BID sodium bicarbonate 650 mg tab(s) 650 mg ORAL BID Objective Physical Exam: Temp (24hrs), Av.9 ?C (98.4 ?F), Min:36.5 ?C (97.7 ?F), Max:37.2 ?C (99 ?F) Temp (120hrs), Av.7 ?C (98.1 ?F), Min:36.3 ?C (97.3 ?F), Max:37.2 ?C (99 ?F) GENERAL APPEARANCE: Patient in no acute distress. LUNGS: Normal breath sounds, clear to auscultation, no wheezes, or crackles. HEART: Regular rate/rhythm, normal heart sounds, and no murmurs. ABDOMEN: Soft, non tender. EXTREMITIES: No edema or tenderness. NEURO: Awake, alert and oriented x3, no involuntary motions. Lab data: WBC Date Value 12/08/2022 36.26 k/uL 12/07/2022 34.46 k/uL 12/06/2022 41.53 k/uL 12/06/2022 33.24 k/uL 12/05/2022 40.77 k/uL 05/22/2021 59.56 k/uL 08/24/2020 20.17 k/uL 03/08/2020 28.21 k/uL 01/10/2020 25.83 thou/cmm 01/03/2020 33.4 thou/cmm Platelet Count Date Value 12/08/2022 436 k/uL 12/07/2022 429 k/uL 12/06/2022 459 k/uL 12/06/2022 453 k/uL 12/05/2022 568 k/uL 05/22/2021 1,867 k/uL 08/24/2020 745 k/uL 03/08/2020 1,501 k/uL 01/10/2020 1,677 thou/cmm 01/03/2020 1,841 thou/cmm Creatinine (mg/dL) Date Value 12/08/2022 2.35 12/08/2022 2.37 12/07/2022 2.14 12/06/2022 2.26 12/06/2022 2.22 05/22/2021 1.94 08/24/2020 2.02 03/08/2020 1.72 03/08/2020 1.66 01/10/2020 1.83 AST (U/L) Date Value 12/01/2022 13 08/24/2020 19 08/24/2020 21 ALT (U/L) Date Value 12/01/2022 14 08/24/2020 10 08/24/2020 8 Microbiology data: Reviewed DATA: Diagnostic Tests Reviewed for Today's Visit: Most recent labs Impression/Recommendati ons 67 yo gentleman with a h/o renal cell carcinoma 2018, CLL 2018 (untreated), essential thrombocythemia, DVT, CKD, anemia, bowel AVM's, diverticulitis s/p colon resection, and CAD. Admitted with respiratory symptoms, weight loss, and extreme fatigue and was found to have enlarging pulmonary nodules (all <1 cm), ground-glass in the bases, some consolidation on the left, and worsening mediastinal and hilar lymphadenopathy. RECOMMENDATIONS: Monitoring for signs and symptoms of new or recrudescent infection off antibiotics. Follow up histo testing. SIGNATURE: Quintin Haywood MD PATIENT NAME: Adina David DATE: December 08, 2022 TIME: 8:58 PM Normal [facility] Magnesium SerPl-mCncon 12-08 Magnesium [Mass/Vol] 1.7 mg/dL Normal 1.7-2.3 [facility] Comment on above: Order Comment: Speci men Type: BLOOD SPECIMENOrdering Facility: [facility] Address: [address] [place] [address] Performed By: #### 2 4321-2, 1751-7, 2777-1, 10538-6 ####[facility] LABCLIA [id number] [address] NUTRITIONon 12-08-2022 NUTRITION HNO ID: [id number] Author: Elysia Murillo DTR Service: Nutrition Therapy Author Type: Client Success Director Type: Nutrition Filed: 12/08/2022 12:09 PM Note Text: NUTRITION THERAPY [employer] NOTE SERVICE DATE: 12/08/2022 SERVICE TIME: 925 Visit Type: Length of Stay Evaluation Goals Met: Not Met Plan of Care: Supplements: Boost Glucose Control Follow-Up: Refer to Registered Dietitian Nursing Admission Assessment Malnutrition Score: 0 Nutrition Intake: Diet Orders (From admission, onward) Start Ordered 12/07/22 1415 DIET ELECTROLYTE CONTROLLED START NOW Question: Electrolytes Answer: 2 GM POTASSIUM 12/07/22 1404 Average Daily Calorie Intake (kcal): 1060 kcal Average Daily Protein Intake (gm): 47 gm Average intake over: 5 days (Intakes noted are from patient self reporting. Only 2 meals noted out of the last 5 days.) Appetite: Fair GI Symptoms: None Anthropometrics: Body mass index is 25.3 kg/m?. Loss of lean body mass/visual muscle wasting: No Weight Change: Decreased Food Preferences: Nutritional supplements have been requested. Allergies: No food allergies MNT Billing: $ Routine Care : 1-15 minutes SIGNATURE: Elysia Murillo DTR PATIENT NAME: Adina David DATE: December 08, 2022 TIME: 12:09 PM Normal [facility] Phosphate SerPl-mCncon 12-08 Phosphate [Mass/Vol] 4.1 mg/dL Normal 2.7-4.8 [facility] Comment on above: Order Comment: Speci men Type: BLOOD SPECIMENOrdering Facility: [facility] Address: [address] [place] [address] Performed By: #### 2 4321-2, 1751-7, 2777-1, 41378-5 ####[facility] LABCLIA [id number] [place] [address] [place] [facility] Albumin [Mass/Vol] 3.7 g/dL Low 3.9-4.9 [facility] Comment on above: Order Comment: Speci men Type: BLOOD SPECIMENOrdering Facility: [facility] Address: [address] [place] [address] Performed By: #### 2 4362-6 ####[facility] LABCLIA [id number] [place] [address] [place] Anion gap [Moles/Vol] 13 mmol/L Normal 9-18 [facility] Comment on above: Order Comment: Speci men Type: BLOOD SPECIMENOrdering Facility: [facility] Address: [address] [place] [address] Performed By: #### 2 4362-6 ####[facility] LABCLIA [id number] [place] [address] [place] Calcium [Mass/Vol] 10.0 mg/dL Normal 8.5-10.2 [facility] Comment on above: Order Comment: Speci men Type: BLOOD SPECIMENOrdering Facility: [facility] Address: [address] [place] [address] Performed By: #### 2 4362-6 ####[facility] LABCLIA [id number] [address] [place] Chloride [Moles/Vol] 102 mmol/L Normal 97-105 [facility] Comment on above: Order Comment: Speci men Type: BLOOD SPECIMENOrdering Facility: [facility] Address: [address] [place] [address] Performed By: #### 2 4362-6 ####[facility] LABCLIA [id number] [address] OF [place] CO2 [Moles/Vol] 18 mmol/L Low 22-30 [facility] Comment on above: Order Comment: Speci men Type: BLOOD SPECIMENOrdering Facility: [facility] Address: [address] [place] [address] Performed By: #### 2 4362-6 ####[facility] LABCLIA [id number] [address] OF [facility] Creatinine [Mass/Vol] 2.37 mg/dL High 0.73-1.22 [facility] Comment on above: Order Comment: Speci men Type: BLOOD SPECIMENOrdering Facility: [facility] Address: [address] [place] [address] Performed By: #### 2 4362-6 ####[facility] LABCLIA [id number] [address] Creatinine and Glomerular filtration rate.predicted panel (S/P/Bld) 29 mL/min/1.73m??? Low >=60 [facility] Comment on above: Order Comment: Speci men Type: BLOOD SPECIMENOrdering Facility: [facility] Address: [address] [place] [address] Result Comment: Mady mated Glomerular Filtration Rate (eGFR) is calculated using the 2020 CKD-EPI creatinine equation. This equation utilizes serum creatinine, sex, and age as parameters. The creatinine assay has traceable calibration to isotope dilution-mass spectrometry. Refer to KDIGO guidelines for clinical interpretation. In patients with unstable renal function, e.g. those with acute kidney injury, the eGFR may not accurately reflect actual GFR. Performed By: #### 2 4362-6 ####[facility] [id number] [place] [address] [place] Glucose [Mass/Vol] 99 mg/dL Normal 74-99 [facility] Comment on above: Order Comment: Speci men Type: BLOOD SPECIMENOrdering Facility: [facility] Address: [address] [place] [address] Result Comment: The [place] [employer] (ADA) provides guidance for cutoff values for fasting glucose and random glucose. The ADA defines fasting as no caloric intake for at least 8 hours. Fasting plasma glucose results between 100 to 125 mg/dL indicate increased risk for diabetes (prediabetes). Fasting plasma glucose results greater than or equal to 126 mg/dL meet the criteria for diagnosis of diabetes. In the absence of unequivocal hyperglycemia, results should be confirmed by repeat testing. In a patient with classic symptoms of hyperglycemia or hyperglycemic crisis, random plasma glucose results greater than or equal to 200 mg/dL meet the criteria for diagnosis of diabetes. Reference: Standards of Medical Care in Diabetes 2016, [place] [employer] Association. Diabetes Care. 2016.39(Suppl 1). Performed By: #### 2 4362-6 ####[facility] [id number] [place] [address] [place] Phosphate [Mass/Vol] 4.5 mg/dL Normal 2.7-4.8 [facility] Comment on above: Order Comment: Speci men Type: BLOOD SPECIMENOrdering Facility: [facility] Address: [address] [id number] Performed By: #### 2 4362-6 ####[facility] [id number] [place] [address] [place] Potassium [Moles/Vol] 5.2 mmol/L High 3.7-5.1 [facility] Comment on above: Order Comment: Speci men Type: BLOOD SPECIMENOrdering Facility: [facility] Address: [address] [place], [place] [address] Performed By: #### 2 4362-6 ####[facility] LABCLIA [id number] [place] [address] [place] Sodium [Moles/Vol] 133 mmol/L Low 136-144 [facility] Comment on above: Order Comment: Speci men Type: BLOOD SPECIMENOrdering Facility: [facility] Address: [address] [place] [address] Performed By: #### 2 4362-6 ####[facility] LABCLIA [id number] [place] [address] [place] Urea nitrogen [Mass/Vol] 34 mg/dL High 9-24 [facility] Comment on above: Order Comment: Speci men Type: BLOOD SPECIMENOrdering Facility: [facility] Address: [address] [place] [address] Performed By: #### 2 4362-6 ####[facility] LABCLIA [id number] [place] [address] [place] TYPE + SCREENon 12-08-2022 ABO B Normal [facility] Comment on above: Order Comment: Speci men Type: BLOOD SPECIMENOrdering Facility: [facility] Address: [address] [place] [address] Performed By: #### T SCR ####[facility] BLO[facility] BANKCLIA [id number] [place] [address] [place] HISTORICAL AB SCR STATUS Negative Normal [facility] Comment on above: Order Comment: Speci men Type: BLOOD SPECIMENOrdering Facility: [facility] Address: [address] [place] [address] Performed By: #### T SCR ####[facility] BLOOD BANKCLIA [id number] [place] [address] [place] Rh Nom (Bld) Positive Normal [facility] Comment on above: Order Comment: Speci men Type: BLOOD SPECIMENOrdering Facility: [facility] Address: [address] Performed By: #### T SCR ####[facility] BLOOD BANKCLIA [id number] [place] [address] [place] [facility] TYPE AND SCREEN EXPIRATION 12/11/2022 23:59 Normal [facility] Comment on above: Order Comment: Speci men Type: BLOOD SPECIMENOrdering Facility: [facility] Address: [address] Performed By: #### T SCR ####[facility] BLOOD BANKCLIA [id number] [place] [address] [place] [facility] OF [place] Basic metabolic 2000 panelon 12-07-2022 Anion gap [Moles/Vol] 13 mmol/L Normal 9-18 [facility] Comment on above: Order Comment: Speci men Type: BLOOD SPECIMENOrdering Facility: [facility] Address: [address] [place], [place] [address] Performed By: #### 1 9123-9, 63621-0 ####[facility] LABCLIA [id number] [place] [address] [place] Calcium [Mass/Vol] 10.0 mg/dL Normal 8.5-10.2 [facility] Comment on above: Order Comment: Speci men Type: BLOOD SPECIMENOrdering Facility: [facility] Address: [address] [place], [place] [address] Performed By: #### 1 9123-9, 63469-3 ####[facility] LABCLIA [id number] [place] [address] [place] Chloride [Moles/Vol] 104 mmol/L Normal 97-105 [facility] Comment on above: Order Comment: Speci men Type: BLOOD SPECIMENOrdering Facility: [facility] Address: [address] Performed By: #### 1 9123-9, 53817-5 ####[facility] LABIA [id number] [place] [address] [place] CO2 [Moles/Vol] 19 mmol/L Low 22-30 [facility] Comment on above: Order Comment: Speci men Type: BLOOD SPECIMENOrdering Facility: [facility] Address: [address] [place] [address] Performed By: #### 1 9123-9, 03423-2 ####[facility] LABIA [id number] [address] [place] Creatinine [Mass/Vol] 2.14 mg/dL High 0.73-1.22 [facility] Comment on above: Order Comment: Speci men Type: BLOOD SPECIMENOrdering Facility: [facility] Address: [address] [place] [address] Performed By: #### 1 91239, 62805-0 ####[facility] [id number] [place] [address] [place] Creatinine and Glomerular filtration rate.predicted panel (S/P/Bld) 33 mL/min/1.73m??? Low >=60 [facility] Comment on above: Order Comment: Speci men Type: BLOOD SPECIMENOrdering Facility: [facility] Address: [address] [place] [address] Result Comment: Mady mated Glomerular Filtration Rate (eGFR) is calculated using the 2020 CKD-EPI creatinine equation. This equation utilizes serum creatinine, sex, and age as parameters. The creatinine assay has traceable calibration to isotope dilution-mass spectrometry. Refer to KDIGO guidelines for clinical interpretation. In patients with unstable renal function, e.g. those with acute kidney injury, the eGFR may not accurately reflect actual GFR. Performed By: #### 1 9123-9, 96498-7 ####[facility] LABIA [id number] [place] [address] [place] Glucose [Mass/Vol] 96 mg/dL Normal 74-99 [facility] Comment on above: Order Comment: Kaylee christianson Type: BLOOD SPECIMENOrdering Facility: [facility] Address: [address] [phone] Result Comment: The [place] Diabetes [employer] (ADA) provides guidance for cutoff values for fasting glucose and random glucose. The ADA defines fasting as no caloric intake for at least 8 hours. Fasting plasma glucose results between 100 to 125 mg/dL indicate increased risk for diabetes (prediabetes). Fasting plasma glucose results greater than or equal to 126 mg/dL meet the criteria for diagnosis of diabetes. In the absence of unequivocal hyperglycemia, results should be confirmed by repeat testing. In a patient with classic symptoms of hyperglycemia or hyperglycemic crisis, random plasma glucose results greater than or equal to 200 mg/dL meet the criteria for diagnosis of diabetes. Reference: Standards of Medical Care in Diabetes 2016, [place] [employer]. Diabetes Care. 2016.39(Suppl 1). Performed By: #### 1 9123-9, 40614-3 ####[facility] LABCLIA [id number] [place] [address] [place] Potassium [Moles/Vol] 5.3 mmol/L High 3.7-5.1 [facility] Comment on above: Order Comment: Kaylee christianson Type: BLOOD SPECIMENOrdering Facility: [facility] Address: [address] [place], [place] [address] Performed By: #### 1 9123-9, 63198-2 ####[facility] LABCLIA [id number] [place] [address] [place] Sodium [Moles/Vol] 136 mmol/L Normal 136-144 [facility] Comment on above: Order Comment: Kaylee christianson Type: BLOOD SPECIMENOrdering Facility: [facility] Address: [address] [place] [address] Performed By: #### 1 9123-9, 44103-6 ####[facility] LABCLIA [id number] [place] [address] [place] Urea nitrogen [Mass/Vol] 31 mg/dL High 9-24 [facility] Comment on above: Order Comment: Speci men Type: BLOOD SPECIMENOrdering Facility: [facility] Address: [address] [address] Performed By: #### 1 9123-9, 58454-0 ####[facility] LABIA [id number] [place] [address] [place] CBC panel Auto (Bld)on 12-07 Erythrocyte distribution width (RBC) [Ratio] 17.1 % High 11.5-15.0 [facility] Comment on above: Order Comment: Speci men Type: BLOOD SPECIMENOrdering Facility: [facility] Address: [address] [place] [address] Performed By: #### 5 8410-2 ####[facility] LABIA [id number] [place] [address] [place] Hematocrit (Bld) [Volume fraction] 27.3 % Low 39.0-51.0 [facility] Comment on above: Order Comment: Speci men Type: BLOOD SPECIMENOrdering Facility: [facility] Address: [address] [place] [address] Performed By: #### 5 8410-2 ####[facility] LABIA [id number] [place] [address] [place] Hemoglobin (Bld) [Mass/Vol] 8.3 g/dL Low 13.0-17.0 [facility] Comment on above: Order Comment: Speci men Type: BLOOD SPECIMENOrdering Facility: [facility] Address: [address] [address] Performed By: #### 5 8410-2 ####[facility] LABIA [id number] [place] [address] [place] MCH (RBC) [Entitic mass] 34.4 pg High 26.0-34.0 [facility] Comment on above: Order Comment: Speci men Type: BLOOD SPECIMENOrdering Facility: [facility] Address: [address] Performed By: #### 5 8410-2 ####[facility] LABIA [id number] [address] [place] [facility] MCHC (RBC) [Mass/Vol] 30.4 g/dL Low 30.5-36.0 [facility] Comment on above: Order Comment: Speci men Type: BLOOD SPECIMENOrdering Facility: [facility] Address: [address] [place], [place] [address] Performed By: #### 5 8410-2 ####[facility] LABIA [id number] [place] [address] [place] MCV (RBC) [Entitic vol] 113.3 fL High 80.0-100.0 [facility] Comment on above: Order Comment: Speci men Type: BLOOD SPECIMENOrdering Facility: [facility] Address: [address] [place], [place] [address] Performed By: #### 5 8410-2 ####[facility] LABIA [id number] [place] [address] [place] Nucleated RBC (Bld) [#/Vol] 10*3/uL Normal <0.01 [facility] Comment on above: Order Comment: Speci men Type: BLOOD SPECIMENOrdering Facility: [facility] Address: [address] [place], [place] [address] Performed By: #### 5 8410-2 ####[facility] LABCLIA [id number] [place] [address] [place] Platelet mean volume (Bld) [Entitic vol] 9.2 fL Normal 9.0-12.7 [facility] Comment on above: Order Comment: Speci men Type: BLOOD SPECIMENOrdering Facility: [facility] Address: [address] [place], [place] [address] Performed By: #### 5 8410-2 ####[facility] LABCLIA [id number] [place] [address] [place] Platelets (Bld) [#/Vol] 429 10*3/uL High 150-400 [facility] Comment on above: Order Comment: Speci men Type: BLOOD SPECIMENOrdering Facility: [facility] Address: [address] [place] [address] Performed By: #### 5 8410-2 ####[facility] [id number] [place] [address] [place] RBC (Bld) [#/Vol] 2.41 10*6/uL Low 4.20-6.00 [facility] Comment on above: Order Comment: Speci men Type: BLOOD SPECIMENOrdering Facility: [facility] Address: [address] [place] [address] Performed By: #### 5 8410-2 ####[facility] [id number] [place] [address] [place] WBC (Bld) [#/Vol] 34.46 10*3/uL High 3.70-11.00 [facility] Comment on above: Order Comment: Speci men Type: BLOOD SPECIMENOrdering Facility: [facility] Address: [address] [place] [address] Performed By: #### 5 8410-2 ####[facility] [id number] [address] OF [place] CONSULT PROGon 12-07-2022 CONSULT PROG HNO ID: [id number] Author: Quintin Haywood MD Service: Infectious Disease Author Type: Physician Type: Consult Progress Note Filed: 12/07/2022 9:08 PM Note Text: PROGRESS NOTE INFECTIOUS DISEASE SERVICE DATE: 12/07/2022 Subjective Interval Events: PET/CT reviewed. No fever. Still requiring supplemental oxygen. No major change overall. No new positive microbiology. No urinary symptoms. No N/V. Medications: Current Facility-Administered Medications Medication Dose Route Frequency iv contrast (radiology procedure) INTRAVENOUS DIRECTED PRN iv contrast (radiology procedure) INTRAVENOUS DIRECTED PRN NaCl 0.9% iv flush bag 20 mL INTRAVENOUS PRN acetaminophen 650 mg tab(s) (TYLENOL) 650 mg ORAL q 6 H PRN melatonin 1 mg tab(s) 1 mg ORAL DAILY (8 PM) aspirin 81 mg chewable tab(s) 81 mg ORAL/FEEDING TUBE DAILY pantoprazole DR 40 mg tab(s) (PROTONIX) 40 mg ORAL DAILY (6 AM) zolpidem 5 mg tab(s) (AMBIEN) 5 mg ORAL AT BEDTIME PRN heparin 5,000 Units injection 5,000 Units SUBCUTANEOUS q 8 H ipratropium-albuterol 3 mL nebulizer solution (DUONEB) 3 mL INHALATION q 6 H PRN hydroxyurea 1,000 mg cap(s) (HYDREA) 1,000 mg ORAL DAILY arformoterol 15 mcg nebulizer solution (BROVANA) 15 mcg INHALATION q 12 H budesonide 0.25 mg/2 mL 0.25 mg (PULMICORT) 0.25 mg INHALATION BID docosanol 10 % (ABREVA) TOPICAL 5X/DAY metoprolol tartrate (short acting) 12.5 mg tab(s) (LOPRESSOR) 12.5 mg ORAL BID sodium bicarbonate 650 mg tab(s) 650 mg ORAL BID Objective Physical Exam: Temp (24hrs), Av.6 ?C (97.9 ?F), Min:36.5 ?C (97.7 ?F), Max:36.7 ?C (98.1 ?F) Temp (120hrs), Av.7 ?C (98 ?F), Min:36.3 ?C (97.3 ?F), Max:37 ?C (98.6 ?F) GENERAL APPEARANCE: lying in the bed. HEART: Regular rate/rhythm, normal heart sounds, and no murmurs. ABDOMEN: Soft, non tender, normal bowel sounds. EXTREMITIES: No edema or tenderness. NEURO: Awake, alert and oriented x3, no involuntary motions. Lab data: WBC Date Value 12/07/2022 34.46 k/uL 12/06/2022 41.53 k/uL 12/06/2022 33.24 k/uL 12/05/2022 40.77 k/uL 12/04/2022 34.79 k/uL 05/22/2021 59.56 k/uL 08/24/2020 20.17 k/uL 03/08/2020 28.21 k/uL 01/10/2020 25.83 thou/cmm 01/03/2020 33.4 thou/cmm Platelet Count Date Value 12/07/2022 429 k/uL 12/06/2022 459 k/uL 12/06/2022 453 k/uL 12/05/2022 568 k/uL 12/04/2022 481 k/uL 05/22/2021 1,867 k/uL 08/24/2020 745 k/uL 03/08/2020 1,501 k/uL 01/10/2020 1,677 thou/cmm 01/03/2020 1,841 thou/cmm Creatinine (mg/dL) Date Value 12/07/2022 2.14 12/06/2022 2.26 12/06/2022 2.22 12/05/2022 2.47 12/04/2022 2.34 05/22/2021 1.94 08/24/2020 2.02 03/08/2020 1.72 03/08/2020 1.66 01/10/2020 1.83 AST (U/L) Date Value 12/01/2022 13 08/24/2020 19 08/24/2020 21 ALT (U/L) Date Value 12/01/2022 14 08/24/2020 10 08/24/2020 8 Microbiology data: Reviewed DATA: Diagnostic Tests Reviewed for Today's Visit: Most recent labs and imaging results. Impression/Recommendati ons 67 yo gentleman with a h/o renal cell carcinoma 2018, CLL 2018 (untreated), essential thrombocythemia, DVT, CKD, anemia, bowel AVM's, diverticulitis s/p colon resection, and CAD. Admitted with respiratory symptoms, weight loss, and extreme fatigue and was found to have enlarging pulmonary nodules (all <1 cm), ground-glass in the bases, some consolidation on the left, and worsening mediastinal and hilar lymphadenopathy. RECOMMENDATIONS: Follow up Histoplasma testing. SIGNATURE: Quintin Haywood MD PATIENT NAME: Adina David DATE: December 07, 2022 TIME: 9:05 PM Normal [facility] HISTOPLASMA AG URINEon 12-07 H. capsulatum Ag (U) [Mass/Vol] <0.2 Normal <0.2 [facility] Comment on above: Order Comment: Speci men Type: URINE SPECIMENOrdering Facility: [facility] Address: [address] [place] [address] Performed By: #### U HISTO ####[facility] LABCLIA [id number] [address] [place] H. capsulatum Ag IA Ql (U) Negative Normal Negative [facility] Comment on above: Order Comment: Speci men Type: URINE SPECIMENOrdering Facility: [facility] Address: [address] [place] [address] Result Comment: Hist oplasma galactomannan antigen, urine test is used as an aid in diagnosing histoplasmosis. A negative result cannot rule out infection. Low positive results may at times be due to cross-reactivity with Blastomyces, Talaromyces marneffei, Paracoccidioides, and some Barbara species. Clinical radiological, and epidemiological correlation is required. Performed By: #### U HISTO ####[facility] LABCLIA [id number] [place] [address] [place] Magnesium SerPl-mCncon 12-07 Magnesium [Mass/Vol] 1.6 mg/dL Low 1.7-2.3 [facility] Comment on above: Order Comment: Speci men Type: BLOOD SPECIMENOrdering Facility: [facility] Address: [address] [place] [address] Performed By: #### 1 9123-9, 74745-6 ####[facility] LABCLIA [id number] [place] [address] [place] Culture Sputum w/ Gram Stain on 11-06-2022 Culture Sputum w/ Gram Stain Direct Exam: >25 WBC's per low power field >25 Epithelial Cells per low power field Gram stain indicates excessive oral contamination. Culture will not be interpreted. Please re-order and re-submit if clinically indicated. Susceptibility Data: ------- [facility] Comment on above: Order Comment: TODD stephensonformed at additional charge when indicated Performed By: #### C XSPUTM #### [facility] [address] [place] [address] CBC W Auto Differential pane l (Bld)on 10-16-2022 Anisocytosis Ql (Bld) Present [facility] Basophils (Bld) [#/Vol] 0.00 10*3/uL <0.11 k/uL [facility] Basophils/100 WBC (Bld) 0.0 % [facility] Differential cell count method Nom (Bld) Manual [facility] Eosinophils (Bld) [#/Vol] 0.00 10*3/uL <0.46 k/uL [facility] Eosinophils/100 WBC (Bld) 0.0 % [facility] Erythrocyte distribution width (RBC) [Ratio] 19.9 % High 11.5 - 15.0 % [facility] Hematocrit (Bld) [Volume fraction] 34.7 % Low 39.0 - 51.0 % [facility] Hemoglobin (Bld) [Mass/Vol] 10.2 g/dL Low 13.0 - 17.0 g/dL [facility] Lymphocytes (Bld) [#/Vol] 28.70 10*3/uL High 1.00 - 4.00 k/uL [facility] Lymphocytes/100 WBC (Bld) 76.0 % [facility] Lymphocytes/100 WBC (Bld) 6.0 % [facility] MCH (RBC) [Entitic mass] 31.4 pg 26.0 - 34.0 pg [facility] MCHC (RBC) [Mass/Vol] 29.4 g/dL Low 30.5 - 36.0 g/dL [facility] MCV (RBC) [Entitic vol] 106.8 fL High 80.0 - 100.0 fL [facility] Monocytes (Bld) [#/Vol] 0.38 10*3/uL <0.87 k/uL [facility] Monocytes/100 WBC (Bld) 1.0 % [facility] Neutrophils (Bld) [#/Vol] 6.42 10*3/uL 1.45 - 7.50 k/uL [facility] Neutrophils/100 WBC (Bld) 17.0 % [facility] Nucleated RBC (Bld) [#/Vol] <0.01 k/uL [facility] Nucleated RBC/100 WBC (Bld) [Ratio] 0.0 /100 WBC [facility] Ovalocytes LM Ql (Bld) Few [facility] Platelet mean volume (Bld) [Entitic vol] 9.7 fL 9.0 - 12.7 fL [facility] Platelets (Bld) [#/Vol] 615 10*3/uL High 150 - 400 k/uL [facility] Platelets Estimate (Bld) [#/Vol] Increased [facility] RBC (Bld) [#/Vol] 3.25 10*6/uL Low 4.20 - 6.0 0 m/uL [facility] Red Cell Morph Reviewed: see result s of individual morphologies [facility] WBC (Bld) [#/Vol] 37.76 10*3/uL High 3.70 - 11 .00 k/uL [facility] TYPE + SCREENon 10-16-2022 ABO B [facility] HIstorical Ab Scr Status Negative [facility] Rh Nom (Bld) Positive [facility] Type and Screen Expiration 10/19/2022 23:59 [facility] COLONOSCOPY DIAGNOSTICon [facility] ENTEROSCOPYon 10-09-2022 [facility] CT CHEST W IVCONon 05-02-202 3 Radiology Result ACTIONABLE Abnormal [facility] US DVT LOWER LTon 07-04-2022 [facility] Influenza virus A and B RNA and SARS-CoV-2 (COVID-19) N gene panel MYA+probe (Resp)on 04-17-2022 FLUAV RNA MYA+probe Ql (Unsp spec) Negative Negative for Influenza A by RT-PCR [facility] FLUBV RNA MYA+probe Ql (Unsp spec) Negative Negative for Influenza B by RT-PCR [facility] SARS-CoV-2 (COVID-19) RNA MYA+probe Ql (Resp) SARS-CoV-2 (Agent of COVID-19) Not Detected by RT-PCR or equivalent method. Not Detected [facility] No Panel Informationon 04-17 [facility] Surgical Pathology Depar tmenton 01-20-2022 [facility] Surgical Pathology Department Name ADINA DAVID Pathologist: AALIYAH MONSALVE MD Date of Procedure: 01/20/2022 Date Received: 01/21/2022 Date Reported 01/30/2022 Submitting Physician: JAKOB BLOCK Location: [facility] Other External # [id number] FINAL DIAGNOSIS A. HERNIA SAC: -- FIBROADIPOSE TISSUE CONSISTENT WITH HERNIA SAC. Electronically Signed Out By AALIYAH MONSALVE MD/CALOS By the signature on this report, the individual or group listed as making the Final Interpretation/Diagnosi s certifies that they have reviewed this case. Diagnostic interpretation performed at [place] [address] Clinical History: Incarcerated inguinal hernia Specimens Submitted As: A: HERNIA SAC Other Case Numbers [id number] Gross Description: Received in formalin, labeled with the patient's name and hospital number and hernia sac , is a membraneous segment of tissue measuring 1.0 x 6.5 x 2.0 cm. Areas of induration, nodularity, hemorrhage, necrosis are not seen. Bell Spinner sections are submitted in one cassette. WILLIAM hart/01/23/2022 [facility] Department of Pathology [address] [place] [address] Normal [facility] Comment on above: Performed By: #### U [facility] #### [facility] Surgical Pathology Department [address] [place] [address] [facility] [address] XR CHEST 2V FRONTAL/LATon XR CHEST 2V FRONTAL/LAT Final Report DATE OF EXAM: Mar 30 2020 1:18PM ANX [id number] - XR CHEST 2V FRONTAL/LAT / PROCEDURE REASON: Cough Physician Interpretation EXAMINATION: CHEST RADIOGRAPH (2 VIEW FRONTAL & LATERAL) CLINICAL HISTORY: Cough MQ: [id number] EXAM DATE/TIME: 03/30/2020 1:18 PM COMPARISON: 03/31/2019 RESULT: Lines, tubes, and devices: None. Lungs and pleura: No consolidation. No lung mass. No pleural effusion. No pneumothorax. Cardiomediastinal silhouette: Stable cardiomediastinal silhouette. Bones and soft tissues: Degenerative changes are present within the thoracic spine. IMPRESSION: No acute radiographic abnormality. Smoking Pipe Liner: ISABELLE Transcribe Date/Time: Mar 30 2020 2:14P Dictated by : EULALIO ADAMS MD This examination was interpreted and the report reviewed and electronically signed by: EULALIO ADAMS MD on Mar 30 2020 2:15PM EST Normal [facility] No Panel Information [facility] Vital Signs Date Time Vital Sign Value Performing Clinician Facility 01-01-2024 10:00-0400 Heart rate 108 /min Heaven Shelley [employer] LIFT SCOURER Work Phone: [facility] 01-01-2024 10:00-0400 SaO2% (BldA) [Mass fraction] 98 % Heaven Shleley [employer] LIFT SC[employer]ER Work Phone: [facility] 12-24-2023 12:00-0400 Diastolic blood pressure 91 mm[Hg] Андрей Mon PT Work Phone: [facility] 12-24-2023 12:00-0400 Systolic blood pressure 140 mm[Hg] Андрей Mon PT Work Phone: [facility] 10-17-2023 12:52-0400 Body temperature 97.81 [degF] Deysi Diop PHYSICIST NUCLEAR - STUDIO PRODUCER Work Phone: [facility] 10-17-2023 12:52-0400 Diastolic blood pressure 86 mm[Hg] Deysi Diop PHYSICIST NUCLEAR - STUDIO PRODUCER Work Phone: [facility] 10-17-2023 12:52-0400 Heart rate 89 /min Deysi Diop PHYSICIST NUCLEAR - STUDIO PRODUCER Work Phone: [facility] 10-17-2023 12:52-0400 SaO2% (BldA) [Mass fraction] 96 % Deysi Diop PHYSICIST NUCLEAR - STUDIO PRODUCER Work Phone: [facility] 10-17-2023 12:52-0400 Systolic blood pressure 124 mm[Hg] Deysi Diop PHYSICIST NUCLEAR - STUDIO PRODUCER Work Phone: [facility] 05-05-2023 23:50-0500 Body temperature 98.24 [degF] DR HAFSA JOHNSON MD [facility] 05-05-2023 23:50-0500 Diastolic blood pressure 80 mm[Hg] DR HAFSA JOHNSON MD [facility] 05-05-2023 23:50-0500 Heart rate 94 /min DR HAFSA JOHNSON MD [facility] 05-05-2023 23:50-0500 Respiratory rate 18 /min DR HAFSA JOHNSON MD [facility] 05-05-2023 23:50-0500 Systolic blood pressure 167 mm[Hg] DR HAFSA JOHNSON MD [facility] 05-05-2023 21:02-0500 Body height 177.[address] HAFSA JOHNSON MD [facility] 05-05-2023 21:02-0500 Body temperature 98.42 [degF] DR HAFSA JOHNSON MD [facility] 05-05-2023 21:02-0500 Body weight 90.[address] HAFSA JOHNSON MD [facility] 05-05-2023 21:02-0500 Diastolic Blood Pressure Non-Invasive 102 mm[Hg] DR HAFSA JOHNSON MD [facility] 05-05-2023 21:02-0500 Heart rate 99 /min DR HAFSA JOHNSON MD [facility] 05-05-2023 21:02-0500 Respiratory rate 18 /min DR HAFSA JOHNSON MD [facility] 05-05-2023 21:02-0500 Systolic Blood Pressure Non-Invasive 164 mm[Hg] DR HAFSA JOHNSON MD [facility] 02-20-2023 14:13-0500 Body height 177.8 cm Melinda Bradshaw MD Work Phone: [facility] 02-20-2023 14:13-0500 Body mass index (BMI) [Ratio] 26.83 kg/m2 Melinda Bradshaw MD Work Phone: [facility] 02-20-2023 14:13-0500 Body weight 84.82 kg Melinda Bradshaw MD Work Phone: [facility] 02-20-2023 14:13-0500 Diastolic blood pressure 88 mm[Hg] Melinda Bradshaw MD Work Phone: [facility] 02-20-2023 14:13-0500 Heart rate 69 /min Melinda Bradshaw MD Work Phone: [facility] 02-20-2023 14:13-0500 Systolic blood pressure 163 mm[Hg] Melinda Bradshaw MD Work Phone: [facility] 12-18-2022 15:50-0400 Body height 177.8 cm Halle Dale MD Work Phone: [facility] 12-18-2022 15:50-0400 Body temperature 98.1 [degF] Halle Dale MD Work Phone: [facility] 12-18-2022 15:50-0400 Body weight 81.6 kg Halle Dale MD Work Phone: [facility] 12-18-2022 15:50-0400 Diastolic blood pressure 64 mm[Hg] Halle Dale MD Work Phone: [facility] 12-18-2022 15:50-0400 Heart rate 118 /min Halle Dale MD Work Phone: [facility] 12-18-2022 15:50-0400 Respiratory rate 18 /min Halle Dale MD Work Phone: [facility] 12-18-2022 15:50-0400 SaO2% (BldA) [Mass fraction] 98 % Halle Dale MD Work Phone: [facility] 12-18-2022 15:50-0400 Systolic blood pressure 133 mm[Hg] Halle Dale MD Work Phone: [facility] 12-13-2022 10:39-0400 Body height 177.8 cm Nakul Gallegos MD Work Phone: [facility] 12-13-2022 10:39-0400 Body temperature 96.69 [degF] Nakul Gallegos MD Work Phone: [facility] 12-13-2022 10:39-0400 Diastolic blood pressure 76 mm[Hg] Nakul Gallegos MD Work Phone: [facility] 12-13-2022 10:39-0400 Heart rate 107 /min Nakul Gallegos MD Work Phone: [facility] 12-13-2022 10:39-0400 Respiratory rate 16 /min Nakul Gallegos MD Work Phone: [facility] 12-13-2022 10:39-0400 SaO2% (BldA) [Mass fraction] 88 % Nakul Gallegos MD Work Phone: [facility] 12-13-2022 10:39-0400 Systolic blood pressure 134 mm[Hg] Nakul Gallegos MD Work Phone: [facility] 11-26-2022 10:14-0400 Body height 177.8 cm Leslie Cruzim PHYSICIST NUCLEAR.STUDIO PRODUCER Work Phone: [facility] 11-26-2022 10:14-0400 Body temperature 97.3 [degF] Leslie Sarai PHYSICIST NUCLEAR.STUDIO PRODUCER Work Phone: [facility] 11-26-2022 10:14-0400 Body weight 84.01 kg Leslie Sarai PHYSICIST NUCLEAR.STUDIO PRODUCER Work Phone: [facility] 11-26-2022 10:14-0400 Diastolic blood pressure 71 mm[Hg] Leslie Sarai PHYSICIST NUCLEAR.STUDIO PRODUCER Work Phone: [facility] 11-26-2022 10:14-0400 Heart rate 106 /min Leslie Cruzim PHYSICIST NUCLEAR.STUDIO PRODUCER Work Phone: [facility] 11-26-2022 10:14-0400 Respiratory rate 18 /min Leslie Cruzim PHYSICIST NUCLEAR.STUDIO PRODUCER Work Phone: [facility] 11-26-2022 10:14-0400 SaO2% (BldA) [Mass fraction] 96 % Leslie Sarai PHYSICIST NUCLEAR.STUDIO PRODUCER Work Phone: [facility] 11-26-2022 10:14-0400 Systolic blood pressure 131 mm[Hg] Leslie Sarai PHYSICIST NUCLEAR.STUDIO PRODUCER Work Phone: [facility] 11-21-2022 08:38-0400 Body height 177.8 cm Ulises Ramos DO Work Phone: [facility] 11-21-2022 08:38-0400 Body temperature 98.2 [degF] Ulises Ramos DO Work Phone: [facility] 11-21-2022 08:38-0400 Body weight 84.37 kg Ulises Ramos DO Work Phone: [facility] 11-21-2022 08:38-0400 Diastolic blood pressure 72 mm[Hg] Ulises Richard DO Work Phone: [facility] 11-21-2022 08:38-0400 Heart rate 92 /min Ulises Richard DO Work Phone: [facility] 11-21-2022 08:38-0400 SaO2% (BldA) [Mass fraction] 95 % Ulises Richard DO Work Phone: [facility] 11-21-2022 08:38-0400 Systolic blood pressure 120 mm[Hg] Ulises Richard DO Work Phone: [facility] 11-19-2022 11:24-0400 Body height 177.8 cm Halle Dale MD Work Phone: [facility] 11-19-2022 11:24-0400 Body temperature 97.5 [degF] Halle Dale MD Work Phone: [facility] 11-19-2022 11:24-0400 Body weight 84.46 kg Halle Dale MD Work Phone: [facility] 11-19-2022 11:24-0400 Diastolic blood pressure 72 mm[Hg] Halle Dale MD Work Phone: [facility] 11-19-2022 11:24-0400 Heart rate 108 /min Halle Dale MD Work Phone: [facility] 11-19-2022 11:24-0400 Respiratory rate 18 /min Halle Dale MD Work Phone: [facility] 11-19-2022 11:24-0400 SaO2% (BldA) [Mass fraction] 96 % Halle Dale MD Work Phone: [facility] 11-19-2022 11:24-0400 Systolic blood pressure 144 mm[Hg] Halle Dale MD Work Phone: [facility] 10-17-2022 15:36-0400 Body temperature 98.1 [degF] Ulises Baileyley DO Work Phone: [facility] 10-17-2022 15:36-0400 Body weight 89.27 kg Ulises Richard DO Work Phone: [facility] 10-17-2022 15:36-0400 Diastolic blood pressure 90 mm[Hg] Ulises Richard DO Work Phone: [facility] 10-17-2022 15:36-0400 Heart rate 85 /min Ulises Richard DO Work Phone: [facility] 10-17-2022 15:36-0400 Respiratory rate 16 /min Ulises Richard DO Work Phone: [facility] 10-17-2022 15:36-0400 SaO2% (BldA) [Mass fraction] 98 % Ulises Richard DO Work Phone: [facility] 10-17-2022 15:36-0400 Systolic blood pressure 140 mm[Hg] Ulises Richard DO Work Phone: [facility] 10-16-2022 11:43-0400 Body height 177.8 cm Halle Dale MD Work Phone: [facility] 10-16-2022 11:43-0400 Body temperature 98.29 [degF] Halle Dale MD Work Phone: [facility] 10-16-2022 11:43-0400 Body weight 88.91 kg Halle Dale MD Work Phone: [facility] 10-16-2022 11:43-0400 Diastolic blood pressure 71 mm[Hg] Halle Dale MD Work Phone: [facility] 10-16-2022 11:43-0400 Heart rate 120 /min Halle Dale MD Work Phone: [facility] 10-16-2022 11:43-0400 Respiratory rate 16 /min Halle Dale MD Work Phone: [facility] 10-16-2022 11:43-0400 SaO2% (BldA) [Mass fraction] 99 % Halle Dale MD Work Phone: [facility] 10-16-2022 11:43-0400 Systolic blood pressure 145 mm[Hg] Halle Dale MD Work Phone: [facility] 10-10-2022 10:19-0400 Body temperature 97.9 [degF] Chair Leeds Work Phone: [facility] 10-10-2022 10:19-0400 Diastolic blood pressure 64 mm[Hg] Chair Leeds Work Phone: [facility] 10-10-2022 10:19-0400 Heart rate 97 /min Chair Leeds Work Phone: [facility] 10-10-2022 10:19-0400 Respiratory rate 18 /min Chair Leeds Work Phone: [facility] 10-10-2022 10:19-0400 Systolic blood pressure 159 mm[Hg] Chair Leeds Work Phone: [facility] 10-09-2022 19:50-0400 Diastolic blood pressure 100 mm[Hg] Q3r6 Work Phone: [facility] 10-09-2022 19:50-0400 Heart rate 79 /min Mc Q3r6 Work Phone: [facility] 10-09-2022 19:50-0400 Respiratory rate 16 /min Q3r6 Work Phone: [facility] 10-09-2022 19:50-0400 SaO2% (BldA) [Mass fraction] 97 % Q3r6 Work Phone: [facility] 10-09-2022 19:50-0400 Systolic blood pressure 179 mm[Hg] Q3r6 Work Phone: [facility] 10-09-2022 15:43-0400 Body height 177.8 cm Mc Q3r6 Work Phone: [facility] 10-09-2022 15:43-0400 Body temperature 96.8 [degF] Mc Q3r6 Work Phone: [facility] 10-09-2022 15:43-0400 Body weight 90.72 kg Q3r6 Work Phone: [facility] 08-28-2022 15:45-0400 Body temperature 98.1 [degF] Chair Bath Work Phone: [facility] 08-28-2022 15:45-0400 Diastolic blood pressure 82 mm[Hg] Chair Bath Work Phone: [facility] 08-28-2022 15:45-0400 Heart rate 68 /min Chair Bath Work Phone: [facility] 08-28-2022 15:45-0400 Respiratory rate 18 /min Chair Bath Work Phone: [facility] 08-28-2022 15:45-0400 Systolic blood pressure 163 mm[Hg] Chair Bath Work Phone: [facility] 08-20-2022 10:32-0400 Body height 177.8 cm Halle Dale MD Work Phone: [facility] 08-20-2022 10:32-0400 Body temperature 98.2 [degF] Halle Dale MD Work Phone: [facility] 08-20-2022 10:32-0400 Body weight 95.25 kg Halle Dale MD Work Phone: [facility] 08-20-2022 10:32-0400 Diastolic blood pressure 71 mm[Hg] Halle Dale MD Work Phone: [facility] 08-20-2022 10:32-0400 Heart rate 87 /min Halle Dale MD Work Phone: [facility] 08-20-2022 10:32-0400 Respiratory rate 18 /min Halle Dale MD Work Phone: [facility] 08-20-2022 10:32-0400 SaO2% (BldA) [Mass fraction] 98 % Halle Dale MD Work Phone: [facility] 08-20-2022 10:32-0400 Systolic blood pressure 154 mm[Hg] Halle Dale MD Work Phone: [facility] 07-15-2022 10:06-0400 Body height 177.8 cm Sean Mays MD Work Phone: [facility] 07-15-2022 10:06-0400 Body weight 90.72 kg Sean Mays MD Work Phone: [facility] 07-15-2022 10:06-0400 Diastolic blood pressure 74 mm[Hg] Sean Mays MD Work Phone: [facility] 07-15-2022 10:06-0400 Heart rate 118 /min Sean Mays MD Work Phone: [facility] 07-15-2022 10:06-0400 Respiratory rate 18 /min Sean Mays MD Work Phone: [facility] 07-15-2022 10:06-0400 SaO2% (BldA) [Mass fraction] 97 % Sean Mays MD Work Phone: [facility] 07-15-2022 10:06-0400 Systolic blood pressure 148 mm[Hg] Sean Mays MD Work Phone: [facility] 07-11-2022 09:56-0400 Body height 177.8 cm Ulises Ramos DO Work Phone: [facility] 07-11-2022 09:56-0400 Body temperature 97.81 [degF] Ulises Baileyley DO Work Phone: [facility] 07-11-2022 09:56-0400 Body weight 92.94 kg Ulises Richard DO Work Phone: [facility] 07-11-2022 09:56-0400 Diastolic blood pressure 93 mm[Hg] Ulises Richard DO Work Phone: [facility] 07-11-2022 09:56-0400 Heart rate 89 /min Ulises Ramos DO Work Phone: [facility] 07-11-2022 09:56-0400 SaO2% (BldA) [Mass fraction] 97 % Ulises Ramos DO Work Phone: [facility] 07-11-2022 09:56-0400 Systolic blood pressure 163 mm[Hg] Ulises Richard DO Work Phone: [facility] 07-02-2022 09:51-0400 Body temperature 97.5 [degF] Ulises Richard DO Work Phone: [facility] 07-02-2022 09:51-0400 Body weight 92.31 kg Ulises Richard DO Work Phone: [facility] 07-02-2022 09:51-0400 Diastolic blood pressure 90 mm[Hg] Ulises Richard DO Work Phone: [facility] 07-02-2022 09:51-0400 Heart rate 105 /min Uilses Richard DO Work Phone: [facility] 07-02-2022 09:51-0400 SaO2% (BldA) [Mass fraction] 93 % Ulises Baileyley DO Work Phone: [facility] 07-02-2022 09:51-0400 Systolic blood pressure 144 mm[Hg] Ulises Richard DO Work Phone: [facility] 06-21-2022 10:02-0500 Body temperature 97.9 [degF] Halle Dale MD Work Phone: [facility] 06-21-2022 10:02-0500 Body weight 94.35 kg Halle Dale MD Work Phone: [facility] 06-21-2022 10:02-0500 Diastolic blood pressure 82 mm[Hg] Halle Dale MD Work Phone: [facility] 06-21-2022 10:02-0500 Heart rate 87 /min Halle Dale MD Work Phone: [facility] 06-21-2022 10:02-0500 SaO2% (BldA) [Mass fraction] 96 % Halle Dale MD Work Phone: [facility] 06-21-2022 10:02-0500 Systolic blood pressure 174 mm[Hg] Halle Dale MD Work Phone: [facility] 06-11-2022 16:14-0500 Body height 177.8 cm Buffy Min MD Work Phone: [facility] 06-11-2022 16:14-0500 Body weight 90.72 kg Buffy Min MD Work Phone: [facility] 06-11-2022 16:14-0500 Diastolic blood pressure 97 mm[Hg] Buffy Min MD Work Phone: [facility] 06-11-2022 16:14-0500 Heart rate 92 /min Buffy Min MD Work Phone: [facility] 06-11-2022 16:14-0500 SaO2% (BldA) [Mass fraction] 95 % Buffy Min MD Work Phone: [facility] 06-11-2022 16:14-0500 Systolic blood pressure 187 mm[Hg] Buffy Min MD Work Phone: [facility] 06-05-2022 14:37-0500 Body height 177.8 cm Ulises Richard DO Work Phone: [facility] 06-05-2022 14:37-0500 Body temperature 97.7 [degF] Ulises Richard DO Work Phone: [facility] 06-05-2022 14:37-0500 Body weight 94.08 kg Ulises Richard DO Work Phone: [facility] 06-05-2022 14:37-0500 Diastolic blood pressure 80 mm[Hg] Ulises Richard DO Work Phone: [facility] 06-05-2022 14:37-0500 Heart rate 77 /min Ulises Richard DO Work Phone: [facility] 06-05-2022 14:37-0500 SaO2% (BldA) [Mass fraction] 94 % Ulises Richard DO Work Phone: [facility] 06-05-2022 14:37-0500 Systolic blood pressure 148 mm[Hg] Ulises Ramos DO Work Phone: [facility] 04-17-2022 11:19-0500 Diastolic blood pressure 78 mm[Hg] Annmarie Ronquillo PA-C Work Phone: [facility] 04-17-2022 11:19-0500 Systolic blood pressure 158 mm[Hg] Annmarie Ronquillo PA-C Work Phone: [facility] 04-17-2022 11:00-0500 Body weight 91.22 kg Annmarie Ronquillo PA-C Work Phone: [facility] 04-17-2022 11:00-0500 Heart rate 78 /min Annmarie Ronquillo PA-C Work Phone: [facility] 04-17-2022 11:00-0500 SaO2% (BldA) [Mass fraction] 97 % Annmarie Ronquillo PA-C Work Phone: [facility] 03-22-2022 09:42-0500 Body height 177.8 cm Halle Dale MD Work Phone: [facility] 03-22-2022 09:42-0500 Body temperature 96.91 [degF] Halle Dale MD Work Phone: [facility] 03-22-2022 09:42-0500 Body weight 91.63 kg Halle Dale MD Work Phone: [facility] 03-22-2022 09:42-0500 Diastolic blood pressure 100 mm[Hg] Halle Dale MD Work Phone: [facility] 03-22-2022 09:42-0500 Heart rate 88 /min Halle Dale MD Work Phone: [facility] 03-22-2022 09:42-0500 Respiratory rate 22 /min Halle Dale MD Work Phone: [facility] 03-22-2022 09:42-0500 SaO2% (BldA) [Mass fraction] 97 % Halle Dale MD Work Phone: [facility] 03-22-2022 09:42-0500 Systolic blood pressure 149 mm[Hg] Halle Dale MD Work Phone: [facility] 03-21-2022 15:07-0500 Diastolic blood pressure 63 mm[Hg] [facility] 03-21-2022 15:07-0500 Heart rate 78 /min [facility] 03-21-2022 15:07-0500 Systolic blood pressure 140 mm[Hg] [facility] 03-21-2022 15:06-0500 Respiratory rate 18 /min [facility] 03-18-2022 15:15-0500 Body temperature 97.3 [degF] [facility] 03-18-2022 15:15-0500 Diastolic blood pressure 80 mm[Hg] [facility] 03-18-2022 15:15-0500 Heart rate 78 /min [facility] 03-18-2022 15:15-0500 Respiratory rate 18 /min [facility] 03-18-2022 15:15-0500 Systolic blood pressure 142 mm[Hg] [facility] 03-13-2022 14:18-0500 Body weight 90.72 kg [facility] 03-13-2022 14:18-0500 Diastolic blood pressure 80 mm[Hg] [facility] 03-13-2022 14:18-0500 Heart rate 72 /min [facility] 03-13-2022 14:18-0500 Respiratory rate 18 /min [facility] 03-13-2022 14:18-0500 SaO2% (BldA) [Mass fraction] 96 % [facility] 03-13-2022 14:18-0500 Systolic blood pressure 163 mm[Hg] [facility] 03-04-2022 14:55-0500 Diastolic blood pressure 58 mm[Hg] [facility] 03-04-2022 14:55-0500 Heart rate 76 /min [facility] 03-04-2022 14:55-0500 Respiratory rate 18 /min [facility] 03-04-2022 14:55-0500 Systolic blood pressure 163 mm[Hg] [facility] 03-04-2022 13:51-0500 Body temperature 97.9 [degF] [facility] 02-26-2022 15:20-0500 Diastolic blood pressure 85 mm[Hg] [facility] 02-26-2022 15:20-0500 Heart rate 76 /min [facility] 02-26-2022 15:20-0500 Respiratory rate 18 /min [facility] 02-26-2022 15:20-0500 Systolic blood pressure 173 mm[Hg] [facility] 02-26-2022 14:11-0500 Body weight 88.95 kg [facility] 01-17-2022 14:58-0400 Body height 177.8 cm Loy Mcallister MD Work Phone: [facility] 01-17-2022 14:58-0400 Heart rate 97 /min Loy Mcallister MD Work Phone: [facility] 01-17-2022 14:58-0400 SaO2% (BldA) [Mass fraction] 98 % Loy Mcallister MD Work Phone: [facility] 12-03-2021 14:05-0400 Body temperature 97.5 [degF] Ulises Ramos DO Work Phone: [facility] 12-03-2021 14:05-0400 Body weight 91.67 kg Ulises Baileyley DO Work Phone: [facility] 12-03-2021 14:05-0400 Diastolic blood pressure 78 mm[Hg] Ulises Richard DO Work Phone: [facility] 12-03-2021 14:05-0400 Heart rate 86 /min Ulises Baileyley DO Work Phone: [facility] 12-03-2021 14:05-0400 SaO2% (BldA) [Mass fraction] 97 % Ulises Richard DO Work Phone: [facility] 12-03-2021 14:05-0400 Systolic blood pressure 136 mm[Hg] Ulises Richard DO Work Phone: [facility] 10-22-2021 14:17-0400 Body temperature 98.6 [degF] Ulises Richard DO Work Phone: [facility] 10-22-2021 14:17-0400 Body weight 92.49 kg Ulises Richard DO Work Phone: [facility] 10-22-2021 14:17-0400 Diastolic blood pressure 62 mm[Hg] Ulises Richard DO Work Phone: [facility] 10-22-2021 14:17-0400 Systolic blood pressure 118 mm[Hg] Ulises Richard DO Work Phone: [facility] 10-02-2021 13:12-0400 Body height 177.8 cm Melissa Raymond APRN.STUDIO PRODUCER Work Phone: [facility] 10-02-2021 13:12-0400 Body weight 91.49 kg Melissa Raymond APRN.STUDIO PRODUCER Work Phone: [facility] 10-02-2021 13:12-0400 Diastolic blood pressure 72 mm[Hg] Melissa Raymond APRN.STUDIO PRODUCER Work Phone: [facility] 10-02-2021 13:12-0400 Heart rate 83 /min Melissa Raymond APRN.STUDIO PRODUCER Work Phone: [facility] 10-02-2021 13:12-0400 Respiratory rate 18 /min Melissa Raymond APRN.STUDIO PRODUCER Work Phone: [facility] 10-02-2021 13:12-0400 SaO2% (BldA) [Mass fraction] 97 % Melissa Raymond APRN.STUDIO PRODUCER Work Phone: [facility] 10-02-2021 13:12-0400 Systolic blood pressure 116 mm[Hg] Melissa Raymond APRN.STUDIO PRODUCER Work Phone: [facility] 09-19-2021 10:59-0400 Body temperature 98.6 [degF] Halle Dale MD Work Phone: [facility] 09-19-2021 10:59-0400 Body weight 93.44 kg Halle Dale MD Work Phone: [facility] 09-19-2021 10:59-0400 Diastolic blood pressure 78 mm[Hg] Halle Dale MD Work Phone: [facility] 09-19-2021 10:59-0400 Heart rate 79 /min Halle Dale MD Work Phone: [facility] 09-19-2021 10:59-0400 SaO2% (BldA) [Mass fraction] 96 % Halle Dale MD Work Phone: [facility] 09-19-2021 10:59-0400 Systolic blood pressure 128 mm[Hg] Halle Dale MD Work Phone: [facility] 09-12-2021 10:47-0400 Body temperature 97.5 [degF] Ulises Richard DO Work Phone: [facility] 09-12-2021 10:47-0400 Body weight 94.8 kg Ulises Richard DO Work Phone: [facility] 09-12-2021 10:47-0400 Diastolic blood pressure 72 mm[Hg] Ulises Richard DO Work Phone: [facility] 09-12-2021 10:47-0400 Heart rate 87 /min Ulises Richard DO Work Phone: [facility] 09-12-2021 10:47-0400 SaO2% (BldA) [Mass fraction] 98 % Ulises Richard DO Work Phone: [facility] 09-12-2021 10:47-0400 Systolic blood pressure 118 mm[Hg] Ulises Richard DO Work Phone: [facility] 07-18-2021 13:51-0400 Diastolic blood pressure 90 mm[Hg] Loy Mcallister MD Work Phone: [facility] 07-18-2021 13:51-0400 Heart rate 90 /min Loy Mcallister MD Work Phone: [facility] 07-18-2021 13:51-0400 SaO2% (BldA) [Mass fraction] 95 % Loy Mcallister MD Work Phone: [facility] 07-18-2021 13:51-0400 Systolic blood pressure 140 mm[Hg] Loy Mcallister MD Work Phone: [facility] Encounters Encounter Date Encounter Type Care Provider Facility Start: 01-01-2024 End: 01-01-2024 ambulatory Heaven Shelley TOP LIFT SCOURER Work Phone: [facility] Comment on above: Impaired functional mobility, balance, gait, and endurance (Primary Dx); Acute midline low back pain without sciatica; Physical deconditioning; Muscular deconditioning Start: 12-24-2023 End: 12-24-2023 ambulatory Андрей Mon PT Work Phone: [facility] Comment on above: Impaired functional mobility, balance, gait, and endurance (Primary Dx) Start: 12-04-2023 End: 12-05-2023 ambulatory Wilton Palma RN [employer] Management Comment on above: Community Monitoring Outreach Start: 11-22-2023 Refill Jocelyne Mccullough APRN.STUDIO PRODUCER Work Phone: [facility] Comment on above: Refill Request Start: 11-20-2023 End: 11-20-2023 ambulatory Андрей Mon PT Work Phone: [facility] Comment on above: Impaired functional mobility, balance, gait, and endurance (Primary Dx) Start: 11-12-2023 End: 11-12-2023 ambulatory Hortencia Gallardo MD Work Phone: [facility] Comment on above: Iron deficiency anem ia due to chronic blood loss (Primary Dx) Start: 11-12-2023 End: 11-12-2023 Telemedicine consultation with patient Hortencia Gallardo MD Work Phone: [facility] Start: 10-24-2023 ambulatory Wilton dick technical laboratory asstChief Hydroelectric Station Operator Management Comment on above: Community Monitoring Outreach Start: 10-17-2023 End: 10-17-2023 Office outpatient new 30 minutes Deysi Diop PHYSICIST NUCLEAR - STUDIO PRODUCER Work Phone: [facility] Comment on above: Other non-recurrent acute nonsuppurative otitis media of right ear (Primary Dx); Wheezing; Acute cough Start: 09-24-2023 End: 09-24-2023 ambulatory Hortencia Gallardo MD Work Phone: [facility] Comment on above: Iron deficiency anem ia due to chronic blood loss (Primary Dx) Start: 09-24-2023 End: 09-24-2023 Telemedicine consultation with patient Hortencia Gallardo MD Work Phone: [facility] Start: 09-18-2023 Telephone encounter Hortencia fagan MD Work Phone: [facility] Comment on above: Appointment Start: 09-17-2023 ambulatory Wilton Beltre Staff ord technical laboratory asstChief [employer] Operator Management Comment on above: Community Monitoring Outreach Start: 09-08-2023 Refill Jocelyne Mccullough APRN.STUDIO PRODUCER Work Phone: [facility] Comment on above: Refill Request Start: 08-15-2023 End: 08-15-2023 Emergency department patient visit ULISES Estrellita [facility] Start: 08-11-2023 ambulatory Wilton Beltre Staff ord technical laboratory asstChief [employer] Operator Management Comment on above: Community Monitoring Outreach Start: 07-25-2023 Telephone encounter Barrett jackson MD Work Phone: [facility] [place] Start: 07-17-2023 Refill Ulises ortega DO Work Phone: [facility] Comment on above: Refill Request Start: 07-17-2023 End: 07-17-2023 ambulatory Андрей Mon PT Work Phone: [facility] Comment on above: Acute midline low ba ck pain without sciatica (Primary Dx) Start: 07-15-2023 End: 07-15-2023 ambulatory Kaleigh Mueller TOP LIFT SCOURER Work Phone: [facility] Comment on above: Physical decondition ing (Primary Dx) Start: 07-11-2023 End: 07-11-2023 ambulatory [facility] Facility:[facility] Start: 07-03-2023 End: 07-03-2023 ambulatory Pantera Steiner PT Work Phone: [facility] Comment on above: Physical decondition ing (Primary Dx); Acute midline low back pain without sciatica; Impaired functional mobility, balance, gait, and endurance Start: 07-01-2023 End: 07-01-2023 ambulatory Kaleigh Mueller TOP LIFT SCOURER Work Phone: [facility] Comment on above: Physical decondition ing (Primary Dx) Start: 06-26-2023 End: 06-26-2023 ambulatory Eileen Medrano TOP LIFT SCOURER Work Phone: [facility] Comment on above: Physical decondition ing (Primary Dx) Start: 06-20-2023 End: 06-20-2023 ambulatory Pantera Steiner PT Work Phone: [facility] Comment on above: Physical decondition ing (Primary Dx); Acute midline low back pain without sciatica Start: 06-09-2023 End: 06-09-2023 ambulatory ULISES BAILEYLEY Facility:[facility] Start: 06-05-2023 End: 06-05-2023 ambulatory Eileen Medrano TOP LIFT SCOURER Work Phone: [facility] Physical Therapy Comment on above: Physical decondition ing (Primary Dx) Start: 06-02-2023 End: 06-02-2023 ambulatory Eileen Medrano TOP LIFT SCOURER Work Phone: [facility] Comment on above: Physical decondition ing (Primary Dx) Start: 05-30-2023 End: 05-30-2023 ambulatory Heaven Shelley TOP LIFT SCOURER Work Phone: [facility] Comment on above: Physical decondition ing (Primary Dx); Acute midline low back pain without sciatica; Impaired functional mobility, balance, gait, and endurance Start: 05-28-2023 End: 05-28-2023 ambulatory Kaleigh Mueller TOP LIFT SCOURER Work Phone: [facility] Comment on above: Physical decondition ing (Primary Dx) Start: 05-27-2023 ambulatory Wilton M Staff ord technical laboratory asstChief [employer] Operator Management Comment on above: Community Monitoring Outreach Start: 05-16-2023 End: 05-16-2023 ambulatory Pantera Emilianodeion PT Work Phone: [facility] Comment on above: Acute midline low ba ck pain without sciatica (Primary Dx); Physical deconditioning Start: 05-05-2023 End: 05-06-2023 Emergency department patient visit DR HAFSA JOHNSON MD Facility:B Start: 05-05-2023 End: 05-05-2023 Emergency department patient visit DR HAFSA JOHNSON MD [facility] Start: 03-12-2023 ambulatory Wilton Chisholm ord technical laboratory asstChief [employer] Operator Management Comment on above: Community Monitoring Outreach Start: 02-20-2023 End: 02-20-2023 ambulatory [facility] Amb[facility] Start: 02-20-2023 End: 02-20-2023 Office outpatient new 45 minutes Melinad Barberlobladimir Bradshaw MD Work Phone: [facility] Comment on above: Atrial fibrillation, unspecified type (CMS/HCC) (Primary Dx) Start: 01-21-2023 Telephone encounter Nakul Khalil MD Work Phone: [facility] Gabriel Comment on above: Appointment (Fyi- lisseth lled patient to schedule his follow up appt. Pt declined and states he is no longer following up with [facility] providers-jj) Start: 01-17-2023 Telephone encounter Ulises Ramos DO Work Phone: [facility] [place] Comment on above: Release Of Medical R ecords ([facility]) Start: 01-15-2023 ambulatory Wilton Chisholm ord technical laboratory asstChief [employer] Operator Management Comment on above: Community Monitoring Outreach Start: 01-10-2023 Telephone encounter Halle Haro Work Phone: [facility] Hematology/Oncology Start: 01-03-2023 Telephone encounter Halle Haro Work Phone: [facility] Hematology/Oncology Start: 01-01-2023 ambulatory Maddie White RN [facility] Start: 01-01-2023 Follow-up encounter Maddie White RN Chief Hydroelectric Station Operator Management Comment on above: Transition Of Care ( TCM follow-up) Start: 12-30-2022 Telephone encounter Jenifer bell LPN Work Phone: [facility] Comment on above: Home Care Start: 12-27-2022 Telephone encounter Ionaian lockhart Work Phone: [facility] Comment on above: Home Care (Confirmat ion Call ) Start: 12-24-2022 Telephone encounter Marley galan RD Work Phone: Hematology/Oncology Comment on above: Nutrition Counseling (Weight Loss) Start: 12-20-2022 Telephone encounter Halle Haro Work Phone: [facility] Comment on above: Home Care Start: 12-19-2022 End: 12-26-2022 Evaluation and management of inpatient SERENE CAST DO~[id number] [facility] Start: 12-19-2022 Telephone encounter Loy Mcallister MD Work Phone: Urology Comment on above: Results Returning Patient's Call Orders Start: 12-19-2022 End: 12-19-2022 Emergency department patient visit ULISES RAMOS DO Facility:B Start: 12-18-2022 End: 12-18-2022 ambulatory Halle Dale MD Work Phone: [facility] Hematology/Oncology Comment on above: CLL (chronic lymphoc ytic leukemia) (HCC) (Primary Dx); Essential thrombocythemia (HCC) Start: 12-18-2022 End: 12-18-2022 Patient encounter procedure Halle Dale MD Work Phone: [facility] Start: 12-13-2022 End: 12-13-2022 Office outpatient new 60 minutes Nakul Gallegos MD Work Phone: Pulmonary Medicine Comment on above: CIRA on CPAP (Primary Dx); Primary insomnia; Severe muscle deconditioning Start: 12-13-2022 End: 12-13-2022 ambulatory NAKUL GALLEGOS Facility:[facility] Start: 12-12-2022 Telephone encounter Ulises Ramos DO Work Phone: [facility] [place] Start: 12-09-2022 End: 12-09-2022 [facility] Yoselin Dilia PhD Work Phone: [facility] Hematology & Oncology Comment on above: 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) Start: 12-03-2022 Telephone encounter Ulises Ramos DO Work Phone: [facility] Comment on above: Patient Update Start: 11-29-2022 Telephone encounter Halle Haro Work Phone: [facility] Hematology/Oncology Comment on above: Symptoms Start: 11-28-2022 ambulatory Ulises Olivier ortega DO Work Phone: [facility] Comment on above: Patient Question; Pa tient Update; Shortness of Breath Start: 11-27-2022 ambulatory Macie Payne Compa SOUSA.STUDIO PRODUCER Work Phone: Virtual Medicine Comment on above: Iron deficiency anem ia due to chronic blood loss (Primary Dx); SOB (shortness of breath); Lightheadedness Start: 11-27-2022 Telemedicine consult ation with patient Macie Chatman LARS.STUDIO PRODUCER Work Phone: [facility] Start: 11-27-2022 Telephone encounter Halle Haro Work Phone: [facility] Hematology/Oncology Comment on above: Results Start: 11-26-2022 End: 11-26-2022 ambulatory Leslie Moon APRN.STUDIO PRODUCER Work Phone: [facility] Hematology/Oncology Comment on above: CT chest Essential thrombocyt hemia (HCC) (Primary Dx); CLL (chronic lymphocytic leukemia) (HCC) Start: 11-26-2022 E-mail encounter fro m caregiver Leslie Moon APRN.STUDIO PRODUCER Work Phone: [facility] Start: 11-26-2022 End: 11-26-2022 Patient encounter procedure Leslie Moon APRN.STUDIO PRODUCER Work Phone: [facility] Start: 11-25-2022 Telephone encounter Halle Haro Work Phone: [facility] Hematology/Oncology Comment on above: Appointment (Psychol ogy (new patient exam) with Dr Yoselin Dobbs 12/09/22, CT Chest 02/24/23, Follow up OV 03/05. Pt notified) Start: 11-22-2022 Refill Halle Dale MD Work Phone: [facility] Hematology/Oncology Comment on above: Refill Request Start: 11-21-2022 Telephone encounter Ulises Ramos DO Work Phone: [facility] Comment on above: Insurance Authorizat ion (PROVIGIL) Start: 11-21-2022 End: 11-21-2022 Patient encounter procedure Ulises Ramos DO Work Phone: [facility] Comment on above: CIRA (obstructive sle ep apnea) (Primary Dx); Deep vein thrombosis (DVT) of femoral vein of left lower extremity, unspecified chronicity (HCC); Essential thrombocythemia (HCC); CLL (chronic lymphocytic leukemia) (HCC) Start: 11-19-2022 End: 11-19-2022 ambulatory Halle Dale MD Work Phone: [facility] Hematology/Oncology Comment on above: Essential thrombocyt hemia (HCC) (Primary Dx); Renal cancer, right (HCC) Start: 11-19-2022 End: 11-19-2022 Patient encounter procedure Halle Dale MD Work Phone: [facility] Start: 11-18-2022 End: 11-19-2022 ambulatory ULISES RAMOS [facility] Start: 11-18-2022 Telephone encounter Ulises Ramos DO Work Phone: [facility] Comment on above: Orders Start: 11-16-2022 Telephone encounter Bertha Chou MD Work Phone: [facility] Hematology/Oncology Comment on above: Patient Question Start: 11-15-2022 Telephone encounter Ulises Ramos DO Work Phone: [facility] Comment on above: Patient Request Refill Request Start: 11-12-2022 Telephone encounter Ulises Ramos DO Work Phone: [facility] Comment on above: Patient Update Results, Lab Start: 11-07-2022 Telephone encounter Ulises Ramos DO Work Phone: [facility] Comment on above: Patient Update; Resu lts, Lab Start: 11-06-2022 End: 11-07-2022 ambulatory ULISES RAMOS [facility] Start: 11-01-2022 Telephone encounter Bailey Hernandez Gastroenterology Comment on above: Results (labs) Start: 10-24-2022 Orders Only Leslie Moon PHYSICIST NUCLEAR.STUDIO PRODUCER Work Phone: [facility] Hematology/Oncology Comment on above: Essential thrombocyt hemia (HCC) (Primary Dx) Community Monitoring Outreach Start: 10-23-2022 Telephone encounter Halle Haro Work Phone: [facility] Hematology/Oncology Comment on above: Results Start: 10-22-2022 ambulatory Wilton Chisholm ord technical laboratory asstChief [employer] Operator Management Comment on above: Community Monitoring Outreach Start: 10-18-2022 Refill Halle Dale MD Work Phone: [facility] Hematology/Oncology Comment on above: Refill Request Start: 10-17-2022 End: 10-17-2022 Patient encounter procedure Ulises Ramos DO Work Phone: [facility] Comment on above: Deep vein thrombosis (DVT) of femoral vein of left lower extremity, unspecified chronicity (HCC) (Primary Dx) Start: 10-17-2022 End: 10-17-2022 Subsequent hospital visit by physician [place] 2 [facility] Comment on above: Leg edema [R60.0] Start: 10-16-2022 Refill Ulises ortega DO Work Phone: [facility] Comment on above: Refill Request Start: 10-16-2022 End: 10-16-2022 ambulatory Halle Dale MD Work Phone: [facility] Hematology/Oncology Comment on above: Essential thrombocyt hemia (HCC) (Primary Dx); Leg edema; Other insomnia; Renal cancer, right (HCC); CLL (chronic lymphocytic leukemia) (HCC) Start: 10-16-2022 End: 10-16-2022 Patient encounter procedure Halle Dale MD Work Phone: [facility] Start: 10-10-2022 Telephone encounter Halle Haro Work Phone: [facility] Hematology/Oncology Comment on above: Question Patient Question Start: 10-10-2022 End: 10-10-[address] [facility] [place] Work Phone: Hematology/Oncology Comment on above: Stage 3 chronic kidn ey disease, unspecified whether stage 3a or 3b CKD (HCC) (Primary Dx); Acute blood loss anemia; Severe anemia; Other iron deficiency anemia Start: 10-09-2022 End: 10-09-2022 Subsequent hospital visit by physician Hortencia Gallardo MD Work Phone: Gastroenterology Comment on above: Gastrointestinal hem orrhage, unspecified gastrointestinal hemorrhage type [K92.2] Start: 10-02-2022 Telephone encounter Deysi Licona RN G astroenterology Comment on above: Appointment Confirma tion Procedure (Prep inst ructions) Start: 09-25-2022 Telephone encounter Halle Haro Work Phone: [facility] Hematology/Oncology Comment on above: Results Start: 09-17-2022 Telephone encounter Halle Haro Work Phone: [facility] Hematology/Oncology Comment on above: Question Start: 09-16-2022 ambulatory Wilton dick technical laboratory asstChief [employer]electric Station Operator Management Comment on above: Community Monitoring Outreach Start: 08-28-2022 End: 08-28-[address] [facility] Work Phone: Hematology/Oncology Comment on above: Acute blood loss ane magali (Primary Dx); Severe anemia; Stage 3 chronic kidney disease, unspecified whether stage 3a or 3b CKD (HCC); Other iron deficiency anemia Start: 08-27-2022 Orders Only Halle Dale MD Work Phone: [facility] Hematology/Oncology Comment on above: Iron deficiency anem ia due to chronic blood loss (Primary Dx) Start: 08-20-2022 End: 08-20-2022 ambulatory Halle Dale MD Work Phone: [facility] Hematology/Oncology Comment on above: Iron deficiency anem ia due to chronic blood loss (Primary Dx) Start: 08-20-2022 End: 08-20-2022 Patient encounter procedure Halle Dale MD Work Phone: [facility] Start: 08-15-2022 ambulatory Wilton dick technical laboratory asstChief [employer] Station Operator Management Comment on above: Community Monitoring Outreach Start: 08-15-2022 Telephone encounter Ulises Ramos DO Work Phone: [facility] [employer] Comment on above: Results; Patient Upd ate Start: 08-13-2022 End: 08-13-2022 Subsequent hospital visit by physician [facility] [place] [facility] SCAN [facility] Comment on above: Chronic cough [R05.3 ] Start: 08-12-2022 Telephone encounter Halle Haro Work Phone: [facility] Hematology/Oncology Comment on above: Appointment Start: 08-07-2022 End: 08-07-2022 ambulatory Hortencia Gallardo MD Work Phone: Gastroenterology Comment on above: Gastrointestinal hem orrhage associated with angiodysplasia of stomach and duodenum (Primary Dx); Gastrointestinal hemorrhage, unspecified gastrointestinal hemorrhage type; Iron deficiency anemia due to chronic blood loss Start: 08-07-2022 End: 08-07-2022 Telemedicine consultation with patient Hortencia Gallardo MD Work Phone: [facility] Start: 08-05-2022 Telephone encounter Ulises Ramos DO Work Phone: [facility] [employer] Comment on above: Patient Question Start: 08-02-2022 Orders Only Halle Dale MD Work Phone: [facility] Hematology/Oncology Comment on above: Other insomnia (Prim erendira Dx); Renal cancer, right (HCC); Essential thrombocythemia (HCC) Start: 08-01-2022 Telephone encounter Ulises Ramos DO Work Phone: [facility] Comment on above: Consult Results Start: 07-26-2022 Telephone encounter Halle Haro Work Phone: [facility] Hematology/Oncology Comment on above: Refill Request Start: 07-25-2022 Telephone encounter Sean alston MD Work Phone: [facility] Cardiology [place] Comment on above: Loading Shovel Oiler - O ther (NIKOLAS Phillip) Referral Request Start: 07-22-2022 Refill Jocelyne Mccullough APRN.CNP Work Phone: [facility] Comment on above: Refill Request Start: 07-22-2022 Telephone encounter Ulises Ramos DO Work Phone: [facility] Comment on above: Results Start: 07-18-2022 End: 07-18-2022 ambulatory Pulm [place] [facility] Comment on above: COPD Start: 07-18-2022 End: 07-18-2022 Patient encounter procedure Pulm [facility] [place] [facility] Start: 07-18-2022 End: 07-18-2022 Subsequent hospital visit by physician [place] 1 [facility] ULTRA [facility] Comment on above: Iron deficiency anem ia due to chronic blood loss [D50.0] Start: 07-15-2022 End: 07-15-2022 Patient encounter procedure Sean Mays MD Work Phone: [facility] Cardiology [place] Comment on above: NSTEMI (non-ST eleva kali myocardial infarction) ([facility]) (Primary Dx); Post PTCA; Mixed hyperlipidemia; Essential hypertension; Chronic kidney disease, unspecified CKD stage; Gastrointestinal hemorrhage associated with intestinal diverticulosis; CLL (chronic lymphocytic leukemia) ([facility]); Personal history of DVT (deep vein thrombosis) Start: 07-11-2022 Telephone encounter [facility]ises [facility] DO [facility] Comment on above: Orders Medication Question (Repatha directions) Care Coordination Start: 07-11-2022 End: 07-11-2022 Patient encounter procedure Ulises Ramos DO Work Phone: [facility] Comment on above: Iron deficiency anem ia due to chronic blood loss (Primary Dx); Acute deep vein thrombosis (DVT) of popliteal vein of left lower extremity (HCC); Right calf pain Start: 07-04-2022 Telephone encounter Sean alston MD Work Phone: [facility] Cardiology [place] Comment on above: Results Patient Question Start: 07-04-2022 End: 07-04-2022 Subsequent hospital visit by physician [facility] 2 [facility] Comment on above: Deep vein thrombosis (DVT) of left lower extremity, unspecified chronicity, unspecified vein (HCC) [I82.402] Start: 07-02-2022 End: 07-02-2022 Patient encounter procedure Ulises Ramos DO Work Phone: [facility] [employer] Comment on above: Chronic obstructive pulmonary disease with acute exacerbation (HCC) (Primary Dx); Deep vein thrombosis (DVT) of left lower extremity, unspecified chronicity, unspecified vein (HCC); Localized swelling, mass and lump, left upper limb ; History of colonic polyps Start: 06-30-2022 Refill Halle Dale MD Work Phone: [facility] Hematology/Oncology Comment on above: Refill Request Start: 06-28-2022 Telephone encounter Ulises Ramos DO Work Phone: [facility] [employer] Comment on above: Appointment Start: 06-26-2022 End: 06-26-2022 ambulatory Sia Hodge PT Work Phone: [facility] Comment on above: Physical decondition ing (Primary Dx); Impaired functional mobility, balance, gait, and endurance Start: 06-24-2022 End: 06-24-2022 ambulatory Kaleigh Mueller TOP LIFT SCOURER Work Phone: [facility] Comment on above: Physical decondition ing (Primary Dx) Community Monitoring Outreach Start: 06-21-2022 End: 06-21-2022 ambulatory Halle Dale MD Work Phone: [facility] Hematology/Oncology Comment on above: Essential thrombocyt hemia (HCC) (Primary Dx) Start: 06-21-2022 End: 06-21-2022 Patient encounter procedure Halle Dale MD Work Phone: [facility] Start: 06-19-2022 End: 06-19-2022 ambulatory Sia Hodge PT Work Phone: [facility] Comment on above: Physical decondition ing (Primary Dx); Impaired functional mobility, balance, gait, and endurance; Muscular deconditioning Start: 06-14-2022 Telephone encounter Ulises Ramos DO Work Phone: [facility] [place] [employer] Comment on above: Forms (Mon's) Start: 06-14-2022 End: 06-14-2022 ambulatory Sia Hodge PT Work Phone: [facility] Comment on above: Physical decondition ing (Primary Dx); Impaired functional mobility, balance, gait, and endurance; Muscular deconditioning Start: 06-12-2022 End: 06-12-2022 ambulatory Sia Hodge PT Work Phone: [facility] Comment on above: Physical decondition ing (Primary Dx); Impaired functional mobility, balance, gait, and endurance; Muscular deconditioning Start: 06-11-2022 End: 06-11-2022 Patient encounter procedure Buffy Min MD Work Phone: Gastroenterology Comment on above: Iron deficiency anem ia due to chronic blood loss (Primary Dx); Stage 2 chronic kidney disease; AVM (arteriovenous malformation) of small bowel, acquired with hemorrhage; NSTEMI (non-ST elevated myocardial infarction) ([facility]) Start: 06-10-2022 Refill Ulises ortega DO Work Phone: [facility] [place] [employer] Comment on above: Refill Request Start: 06-07-2022 End: 06-07-2022 ambulatory Sia Hodge PT Work Phone: [facility] Comment on above: Physical decondition ing (Primary Dx); Impaired functional mobility, balance, gait, and endurance; Muscular deconditioning Start: 06-05-2022 End: 06-05-2022 Patient encounter procedure Ulises Ramos DO Work Phone: [facility] [place] Comment on above: Bronchitis (Primary Dx) Start: 06-03-2022 End: 06-03-2022 ambulatory Sia Hodge PT Work Phone: [facility] Comment on above: Physical decondition ing (Primary Dx); Impaired functional mobility, balance, gait, and endurance Start: 05-31-2022 End: 05-31-2022 ambulatory Sia Hodge PT Work Phone: [facility] Comment on above: Physical decondition ing (Primary Dx) Start: 05-23-2022 ambulatory Wilton M Staff ord technical laboratory asstChief [employer] Operator Management Comment on above: Community Monitoring Outreach Start: 05-22-2022 Refill Halle Dale MD Work Phone: [facility] Hematology/Oncology Comment on above: Refill Request Start: 05-14-2022 Refill Lucrecia baptiste APRN.STUDIO PRODUCER Work Phone: [facility] [place] Comment on above: Refill Request Start: 04-30-2022 Telephone encounter Hortencia fagan MD Work Phone: Gastroenterology Comment on above: Patient Question Start: 04-25-2022 Refill Halle Dale MD Work Phone: [facility] Hematology/Oncology Comment on above: Refill Request Start: 04-22-2022 Telephone encounter Vivian Galvin RN Work Phone: Gastroenterology Comment on above: voicemail Start: 04-18-2022 ambulatory Wilton M Staff ord technical laboratory asstChief [employer] Operator Management Comment on above: Community Monitoring Outreach Start: 04-17-2022 Telephone encounter Annmarie valdez PA-C Work Phone: [facility] [place] Comment on above: Orders; Results Start: 04-17-2022 End: 04-17-2022 Subsequent hospital visit by physician Kriss [place] [facility] Comment on above: URI with cough and c ongestion [J06.9] Start: 04-17-2022 End: 04-17-2022 Patient encounter procedure Annmarie Ronquillo PA-C Work Phone: [facility] [place] Comment on above: URI with cough and c ongestion (Primary Dx); Wheeze Start: 04-05-2022 Telephone encounter Hortencia fagan MD Work Phone: Gastroenterology Comment on above: PA for Octerotide-Sa ndostatin Start: 04-04-2022 Telephone encounter Halle Haro Work Phone: [facility] Hematology/Oncology Comment on above: Question Start: 04-03-2022 Refill Halle Dale MD Work Phone: [facility] Hematology/Oncology Comment on above: Refill Request Start: 04-03-2022 End: 04-03-2022 ambulatory Sia Hodge PT Work Phone: [facility] Comment on above: Impaired functional mobility, balance, gait, and endurance (Primary Dx); Muscular deconditioning Start: 03-27-2022 End: 03-27-2022 ambulatory Hortencia Gallardo MD Work Phone: Gastroenterology Comment on above: Iron deficiency anem ia due to chronic blood loss (Primary Dx) Start: 03-27-2022 End: 03-27-2022 Telemedicine consultation with patient Hortencia Gallardo MD Work Phone: [facility] Start: 03-25-2022 End: 03-25-2022 ambulatory Kaleigh Mueller TOP LIFT SCOURER Work Phone: [facility] Comment on above: Impaired functional mobility, balance, gait, and endurance (Primary Dx) Start: 03-22-2022 Refill Halle Dale MD Work Phone: [facility] Hematology/Oncology Comment on above: Refill Request Start: 03-22-2022 End: 03-22-2022 ambulatory Halle Dale MD Work Phone: [facility] Hematology/Oncology Comment on above: Essential thrombocyt hemia (HCC) Start: 03-22-2022 End: 03-22-2022 Patient encounter procedure Halle Dale MD Work Phone: [facility] Start: 03-21-2022 End: 03-21-2022 ambulatory Chair 2 [facility] [place] Hematology/Oncology Comment on above: Iron deficiency anem ia due to chronic blood loss (Primary Dx); Other iron deficiency anemia; Gastroesophageal reflux disease, unspecified whether esophagitis present Start: 03-21-2022 Telephone encounter Loy Mcallister MD Work Phone: [facility] Comment on above: Results Start: 03-18-2022 End: 03-18-2022 ambulatory Chair 4 [facility] Hematology/Oncology Comment on above: Iron deficiency anem ia due to chronic blood loss (Primary Dx); Other iron deficiency anemia; Gastroesophageal reflux disease, unspecified whether esophagitis present Start: 03-15-2022 Refill Halle Dale MD Work Phone: [facility] Hematology/Oncology Comment on above: Refill Request Start: 03-14-2022 ambulatory [facility] asstChief Hydroelectric Station Operator Management Comment on above: Community Monitoring Outreach Start: 03-13-2022 End: 03-13-2022 ambulatory Chair 6 [facility] Hematology/Oncology Comment on above: Iron deficiency anem ia due to chronic blood loss (Primary Dx); Other iron deficiency anemia; Gastroesophageal reflux disease, unspecified whether esophagitis present Start: 03-04-2022 End: 03-04-2022 ambulatory Bed 1 [facility] Hematology/Oncology Comment on above: Iron deficiency anem ia due to chronic blood loss (Primary Dx); Other iron deficiency anemia; Gastroesophageal reflux disease, unspecified whether esophagitis present Start: 02-26-2022 End: 02-26-2022 ambulatory Bed 1 [facility] Hematology/Oncology Comment on above: Iron deficiency anem ia due to chronic blood loss (Primary Dx); Other iron deficiency anemia; Gastroesophageal reflux disease, unspecified whether esophagitis present Start: 02-20-2022 Telephone encounter Ulises Ramos DO Work Phone: [facility] Comment on above: Orders; Referral Inf ormation (PT) Start: 02-15-2022 Telephone encounter Loy Mcallister MD Work Phone: [facility] Comment on above: Appointment Start: 02-13-2022 Telephone encounter Halle Haro Work Phone: [facility] Hematology/Oncology Comment on above: Question Start: 02-13-2022 End: 02-13-2022 Subsequent hospital visit by physician Us [place] [facility] Comment on above: N18.32 Start: 02-06-2022 ambulatory Louie Garg RN Chief Hydroelectric Station Operator Management Comment on above: Community Monitoring Outreach Start: 01-23-2022 Telephone encounter Ulises Ramos DO Work Phone: [facility] Comment on above: Patient Question; Me dication Problem Start: 01-20-[address] Aleja Pollock [facility] Facility[facility] Start: 01-17-2022 End: 01-17-2022 Patient encounter procedure Loy Mcallister MD Work Phone: Urology Comment on above: Renal cancer, right (HCC) (Primary Dx); Atypical small acinar proliferation of prostate; Elevated prostate specific antigen (PSA); Hydrocele in adult Start: 01-17-2022 Telephone encounter Loy Mcallister MD Work Phone: [facility] Comment on above: Additional Labs Start: 01-16-2022 ambulatory Ulises ortega DO Work Phone: [facility] Start: 01-16-2022 Follow-up encounter Ulises Ramos DO Work Phone: [facility] Comment on above: Visit Follow Up Ques tion Start: 12-26-2021 Telephone encounter Loy Mcallister MD Work Phone: [facility] Comment on above: Results (/) Start: 12-19-2021 ambulatory Louie Garg RN Chief Hydroelectric Station Operator Management Comment on above: Community Monitoring Outreach Start: 12-18-2021 Refill Halle Dale MD Work Phone: [facility] Hematology/Oncology Comment on above: Refill Request Start: 12-12-2021 End: 12-12-2021 ambulatory Wilbert Watkins MD Work Phone: Gastroenterology Comment on above: Iron deficiency anem ia due to chronic blood loss (Primary Dx) Start: 12-12-2021 End: 12-12-2021 Telemedicine consultation with patient Wilbert Watkins MD Work Phone: [facility] Start: 12-07-2021 End: 12-07-2021 ambulatory Sia Hodge PT Work Phone: [facility] Comment on above: Left hip pain (Prima ry Dx); Impaired functional mobility, balance, gait, and endurance Start: 12-04-2021 Telephone encounter Intestinal Trans Coord Main Work Phone: [facility] Comment on above: Referral - Liver Txp ; Referral Request Start: 12-03-2021 End: 12-03-2021 Patient encounter procedure Ulises Olivier Ramos DO Work Phone: [facility] [place] Comment on above: Chronic diarrhea (Pr imary Dx); Neck pain Start: 12-01-2021 End: 12-01-2021 ambulatory Sia Hodge PT Work Phone: [facility] Comment on above: Left hip pain (Prima ry Dx); Impaired functional mobility, balance, gait, and endurance Start: 11-22-2021 Refill Halle Dale MD Work Phone: [facility] Hematology/Oncology Comment on above: Refill Request Start: 11-19-2021 Telephone encounter Halle Haro Work Phone: [facility] Hematology/Oncology Comment on above: Question Start: 11-19-2021 End: 11-19-2021 ambulatory Kaleigh Mueller TOP LIFT SCOURER Work Phone: [facility] Comment on above: Left hip pain (Prima ry Dx) Start: 11-13-2021 ambulatory Louie Garg RN Ambulatory [facility] Comment on above: Community Monitoring Outreach (CKD Telephonic CDM Outreach) Start: 11-12-2021 End: 11-12-2021 ambulatory Heaven Shelley TOP LIFT SCOURER Work Phone: [facility] Comment on above: Impaired functional mobility, balance, gait, and endurance (Primary Dx); Left hip pain Start: 11-07-2021 Telephone encounter Jorge Roman MD Work Phone: [facility] [place] Comment on above: Patient Question Start: 2021 ambulatory [place] [facility] asst [employer] Comment on above: Community Monitoring Outreach Community Monitoring Outreach (CKD Telephnic CDM Outreach) Start: 2021 Refill Sean Mays MD Work Phone: [facility] Comment on above: Refill Request Start: 10-25-2021 Telephone encounter Ulises Ramos DO Work Phone: [facility] [employer] Comment on above: Results Start: 10-24-2021 Telephone encounter Halle Haro Work Phone: [facility] Hematology/Oncology Comment on above: Question Start: 10-24-2021 End: 10-24-2021 ambulatory Heaven Shelley TOP LIFT SCOURER Work Phone: [facility] Comment on above: Impaired functional mobility, balance, gait, and endurance (Primary Dx); Left hip pain; Chronic pain of left knee Start: 10-23-2021 Telephone encounter Ulises Ramos DO Work Phone: [facility] [employer] Comment on above: Medication Question; Referral Information (sleep medicine) Start: 10-22-2021 End: 10-22-2021 Patient encounter procedure Ulises Ramos DO Work Phone: [facility] [employer] Comment on above: Diarrhea, unspecifie d type (Primary Dx); Acute deep vein thrombosis (DVT) of left lower extremity, unspecified vein (HCC); Iron deficiency anemia due to chronic blood loss Start: 10-22-2021 End: 10-22-2021 ambulatory Heaven Shelley TOP LIFT SCOURER Work Phone: [facility] Comment on above: Impaired functional mobility, balance, gait, and endurance (Primary Dx); Left hip pain; Chronic pain of left knee Start: 10-21-2021 Refill Halle Dale MD Work Phone: [facility] Hematology/Oncology Comment on above: Refill Request Start: 10-18-2021 Refill Sean Mays MD Work Phone: [facility] Comment on above: Refill Request Start: 10-18-2021 Telephone encounter Halle Haro Work Phone: [facility] Hematology/Oncology Comment on above: Question Start: 10-17-2021 Telephone encounter Halle Haro Work Phone: [facility] Hematology/Oncology Comment on above: Appointment (Having blood transfusion tomorrow. Can you put in orders. ) Start: 10-16-2021 Orders Only Halle Dale MD Work Phone: [facility] Hematology/Oncology Comment on above: Iron deficiency anem ia due to chronic blood loss (Primary Dx) RE: Blood test Start: 10-11-2021 Refill Halle Dale MD Work Phone: [facility] Hematology/Oncology Comment on above: Refill Request Start: 10-10-2021 ambulatory Louie Garg RN Chief Hydroelectric Station Operator Management Comment on above: Community Monitoring Outreach (CKD Telephonic CDM Outreach) Start: 10-10-2021 Refill Sean Mays MD Work Phone: [facility] Comment on above: Refill Request Start: 10-09-2021 Telephone encounter Ulises Ramos DO Work Phone: [facility] [employer] Comment on above: Patient Question Question Start: 10-09-2021 End: 10-09-2021 ambulatory Sia Hodge PT Work Phone: [facility] Comment on above: Impaired functional mobility, balance, gait, and endurance (Primary Dx); Left hip pain Start: 10-04-2021 Telephone encounter Melissa hartman APRN.STUDIO PRODUCER Work Phone: [facility] Comment on above: Results Start: 10-03-2021 End: 10-03-2021 ambulatory Heaven Shelley TOP LIFT SCOURER Work Phone: [facility] Comment on above: Impaired functional mobility, balance, gait, and endurance (Primary Dx); Chronic pain of left knee; Left hip pain Start: 10-02-2021 End: 10-02-2021 Patient encounter procedure Melissa Raymond PHYSICIST NUCLEAR.STUDIO PRODUCER Work Phone: [facility] Comment on above: Post PTCA (Primary D x); Mixed hyperlipidemia Start: 09-28-2021 Telephone encounter Delaney Turk RPh [facility] Comment on above: Compliance Adherence (Adherence Packaging ) Start: 09-26-2021 Telephone encounter Halle Haro Work Phone: [facility] Hematology/Oncology Comment on above: Patient Question (Nikolas peacock wants to know if he has an altitude limit he has to stay under? He is traveling and will be flying over 8,000 feet. ) Start: 09-26-2021 End: 09-26-2021 ambulatory Heaven Shelley TOP LIFT SCOURER Work Phone: [facility] Comment on above: Impaired functional mobility, balance, gait, and endurance (Primary Dx); Chronic pain of left knee; Left hip pain Start: 09-25-2021 ambulatory Wilton Melchor [facility] Comment on above: Community Monitoring Outreach (CKD Telephonic CDM Outreach ) Start: 09-24-2021 End: 09-24-2021 ambulatory Heaven Shelley TOP LIFT SCOURER Work Phone: [facility] Comment on above: Impaired functional mobility, balance, gait, and endurance (Primary Dx) Start: 09-19-2021 End: 09-19-2021 ambulatory Halle Dale MD Work Phone: [facility] Hematology/Oncology Comment on above: Iron deficiency anem ia due to chronic blood loss (Primary Dx); Other insomnia Start: 09-19-2021 End: 09-19-2021 Patient encounter procedure Halle Dale MD Work Phone: [facility] Start: 09-13-2021 Telephone encounter Loy Mcallister MD Work Phone: Urology Comment on above: psa results Start: 09-13-2021 End: 09-13-2021 ambulatory Sierra Ortiz PT Work Phone: [facility] Comment on above: Impaired functional mobility, balance, gait, and endurance (Primary Dx); Chronic pain of left knee; Left hip pain Start: 09-12-2021 End: 09-12-2021 Patient encounter procedure Ulises Ramos DO Work Phone: [facility] [place] Comment on above: Elevated PSA (Primar y Dx); Primary insomnia Start: 09-11-2021 ambulatory Kristal De Leon RN Ambulator y Care Management Comment on above: ACM RITU RN ( [facility]) Start: 09-05-2021 End: 09-05-2021 ambulatory Heaven Shelley TOP LIFT SCOURER Work Phone: [facility] Comment on above: Impaired functional mobility, balance, gait, and endurance (Primary Dx); Chronic pain of left knee; Left hip pain Start: 09-04-2021 Telephone encounter Ulises Ramos DO Work Phone: [facility] [place] Comment on above: Nurse Triage Call Start: 08-29-2021 End: 08-29-2021 ambulatory Heaven Shelley TOP LIFT SCOURER Work Phone: [facility] Comment on above: Impaired functional mobility, balance, gait, and endurance (Primary Dx); Chronic pain of left knee; Left hip pain Community Monitoring Outreach (CKD Telephonic CDM Outreach) Start: 08-27-2021 End: 08-27-2021 ambulatory Sierra Ortiz PT Work Phone: [facility] Comment on above: Impaired functional mobility, balance, gait, and endurance (Primary Dx); Chronic pain of left knee; Left hip pain Start: 08-21-2021 Refill Jorge garcia MD Work Phone: [facility] [place] Comment on above: Refill Request Start: 08-15-2021 Orders Only Loy Mcallister MD Work Phone: Urology Comment on above: Elevated prostate sp ecific antigen (PSA) (Primary Dx) Results Start: 08-14-2021 Telephone encounter Halle Haro Work Phone: [facility] Comment on above: Orders CLL (chronic lymphoc ytic leukemia) (HCC) (Primary Dx) Start: 08-14-2021 End: 08-14-2021 ambulatory Heaven Espinosanot TOP LIFT SCOURER Work Phone: [facility] Comment on above: Impaired functional mobility, balance, gait, and endurance (Primary Dx); Chronic pain of left knee; Left hip pain Start: 08-13-2021 ambulatory Louie Garg RN Chief Hydroelectric Station Operator Management Comment on above: Community Monitoring Outreach (CKD Telephonic CDM Outreach) Start: 08-09-2021 Telephone encounter Ulises Ramos DO Work Phone: [facility] [place] Comment on above: Forms (Mon's) Start: 08-09-2021 End: 08-09-2021 ambulatory Sierra Ortiz PT Work Phone: [facility] Comment on above: Impaired functional mobility, balance, gait, and endurance (Primary Dx); Chronic pain of left knee; Left hip pain Start: 08-06-2021 ambulatory Louie Garg RN Chief Hydroelectric Station Operator Management Comment on above: Community Monitoring Outreach (CKD Telephonic CDM Outreach) Start: 08-01-2021 Telephone encounter Ulises Ramos DO Work Phone: [facility] [place] Comment on above: Medication Problem Start: 08-01-2021 End: 08-01-2021 ambulatory Heaven Shelely TOP LIFT SCOURER Work Phone: [facility] Comment on above: Impaired functional mobility, balance, gait, and endurance (Primary Dx); Chronic pain of left knee; Left hip pain Start: 07-30-2021 End: 07-30-2021 ambulatory Heaven Espinosanot TOP LIFT SCOURER Work Phone: [facility] Comment on above: Impaired functional mobility, balance, gait, and endurance (Primary Dx); Left hip pain; Chronic pain of left knee; Pain in left hip Start: 07-27-2021 Telephone encounter Jorge Roman MD Work Phone: [facility] [place] Comment on above: Initial Consult (Ini tiaminna consult [id number] ENT Right ear pain Nasal sore) Start: 07-27-2021 End: 07-27-2021 ambulatory Sierra Ortiz PT Work Phone: [facility] Comment on above: Impaired functional mobility, balance, gait, and endurance (Primary Dx); Left hip pain Start: 07-26-2021 ambulatory Louie Garg RN Chief Hydroelectric Station Operator Management Comment on above: Community Monitoring Outreach (CKD Telephonic CDM Outreach) Start: 07-26-2021 Refill Ulises ortega DO Work Phone: [facility] [place] Comment on above: Refill Request Start: 07-25-2021 Telephone encounter Ulises Ramos DO Work Phone: [facility] Comment on above: Forms (mon) Start: 07-25-2021 End: 07-25-2021 ambulatory Heaven Shelley TOP LIFT SCOURER Work Phone: [facility] Comment on above: Impaired functional mobility, balance, gait, and endurance (Primary Dx); Left hip pain; Chronic pain of left knee Start: 07-20-2021 Telephone encounter Halle Haro Work Phone: [facility] Comment on above: Question Start: 07-20-2021 End: 07-20-2021 ambulatory Eileen Medrano TOP LIFT SCOURER Work Phone: [facility] Comment on above: Impaired functional mobility, balance, gait, and endurance (Primary Dx) Start: 07-18-2021 End: 07-18-2021 Patient encounter procedure Loy Mcallister MD Work Phone: Urology Comment on above: Elevated prostate sp ecific antigen (PSA) (Primary Dx); Personal history of renal cancer; Hydrocele in adult; Renal cancer, right (HCC); Atypical small acinar proliferation of prostate Start: 07-16-2021 Telephone encounter Ulises Ramos DO Work Phone: [facility] Comment on above: Appointment (Resched asia appt-Provider out of office) Start: 07-11-2021 ambulatory Louie Garg RN Chief Hydroelectric Station Operator Management Comment on above: Community Monitoring Outreach (CKD CDM Enrollment) Start: 07-06-2021 End: 07-06-2021 ambulatory Sia Hodge PT Work Phone: [facility] Comment on above: Impaired functional mobility, balance, gait, and endurance (Primary Dx); Chronic pain of left knee; Left hip pain Start: 08-21-2017 Ambulatory [facility] Procedures Date Procedure Procedure Detail Performing Clinician Start: 02-20-2023 ECG 12-LEAD MELINDA BRADSHAW Start: 02-20-2023 Ecg routine ecg w/le ast 12 lds w/i&r Melinda Bradshaw MD Work Phone: Start: 12-19-2022 Transfusion of Nonautologous Red Blood Cells into Peripheral Vein, Percutaneous Approach SERENE CAST DO~[id number] Start: 12-11-2022 Antibody screen HORTENCIA GALLARDO Comment on above: Order Comment: Speci men Type: BLOOD SPECIMENOrdering Facility: [facility] Address: [address] [place] [address] Performed By: #### T SCR ####CC MAIN BLOOD BANKCLIA [id number] [address] Start: 12-08-2022 Antibody screen HORTENCIA GALLARDO Comment on above: Order Comment: Speci men Type: BLOOD SPECIMENOrdering Facility: [facility] Address: [address] [place] [address] Performed By: #### T SCR ####CC MAIN BLOOD BANKCLIA [id number] [address] Start: 10-16-2022 Antibody screen Halle schilling MD Work Phone: Start: 10-09-2022 Colonoscopy flx dx w /collj spec when pfrmd Hortencia Gallardo MD Work Phone: Start: 10-09-2022 Endoscopy upper smal l intestine Hortencia Gallardo MD Work Phone: Start: 10-09-2022 Colonoscopy Mc Q3r6 Work Phone: Start: 10-08-2022 Compatibility each u nit electronic Halle Dale MD Work Phone: Start: 08-28-2022 End: 08-28-2022 RBC TRANSFUSION INSTRUCTION ([place]) Halle Dale MD Work Phone: Start: 08-27-2022 Compatibility each u nit electronic Halle Dale MD Work Phone: Start: 08-13-2022 Ct thorax w/contrast material Ulises Ramos DO Work Phone: Start: 07-18-2022 Brncdilat rspse spmt ry pre&post-brncdilat admn Ulises Ramos DO Work Phone: Start: 07-15-2022 Ecg routine ecg w/le ast 12 lds w/i&r Sean Mays MD Work Phone: Start: 07-04-2022 Dup-scan xtr veins unilateral/limited study Ulises Ramos DO Work Phone: Start: 07-02-2022 Lipid 1996 panel - S scarlet or Plasma Marley Falk RD Work Phone: Start: 04-17-2022 Radiologic exam ches t 2 views Annmarie Ronquillo PA-C Work Phone: Start: 04-17-2022 COVID WITH FLUA+B, ROUTINE Annmarie CONNOR-C Work Phone: Start: 01-17-2022 Isai post-voiding re sidual urine&/bladder cap Loy Mcallister MD Work Phone: Start: 04-05-2021 Adult depression scr eening assessment Sia Hodge PT Work Phone: Start: 11-25-2018 History of placement of stent for coronary artery disease S/P drug eluting coronary stent placement Sia Hodge PT Work Phone: Start: 08-21-2017 Colonoscopy Sia Hodge PT Work Phone: Large intestinal str ucture (body structure) DR HAFSA JOHNSON MD Comment on above: resection Percutaneous translu chelsi coronary angioplasty DR HAFSA JOHNSON MD Stent, device (physi kentrell object) DR HAFSA JOHNSON MD Comment on above: coronary Total nephrectomy DR HAFSA JOHNSON MD Comment on above: right Plan of Treatment Date Care Activity Detail Author Start: 10-09-2032 Screening for malignant neoplasm of colon [facility] Start: 10-10-2027 Colonoscopy COLONOSCOPY [facility] Start: 10-10-2027 COLORECTAL CANCER SCREENING COLORECTAL CANCER SCREENING [facility] Start: 10-10-2027 Screening for malignant neoplasm of colon [facility] Start: 08-22-2027 Screening for malignant neoplasm of colon [facility] Start: 07-03-2027 Lipid 1996 panel - Serum or Plasma Lipid Screening [facility] Start: 07-03-2027 Lipid panel Lipid Screening [facility] Start: 07-03-2027 LIPID SCREEN LIPID SCREEN [facility] Start: 04-23-2027 LIPID SCREEN LIPID SCREEN [facility] Start: 03-18-2027 PROSTATE CANCER SCREENING DISCUSSION PROSTATE CANCER SCREENING DISCUSSION [facility] Start: 01-17-2027 LIPID SCREEN LIPID SCREEN [facility] Start: 12-13-2026 PROSTATE CANCER SCREENING DISCUSSION PROSTATE CANCER SCREENING DISCUSSION [facility] Start: 10-03-2026 LIPID SCREEN LIPID SCREEN [facility] Start: 09-27-2026 PROSTATE CANCER SCREENING DISCUSSION PROSTATE CANCER SCREENING DISCUSSION [facility] Start: 09-11-2026 PROSTATE CANCER SCREENING DISCUSSION PROSTATE CANCER SCREENING DISCUSSION [facility] Start: 08-14-2026 PROSTATE CANCER SCREENING DISCUSSION PROSTATE CANCER SCREENING DISCUSSION [facility] Start: 01-19-2026 LIPID SCREEN LIPID SCREEN [facility] Start: 01-19-2026 PROSTATE CANCER SCREENING DISCUSSION PROSTATE CANCER SCREENING DISCUSSION [facility] Start: 12-17-2025 DIABETES SCREEN DIABETES SCREEN [facility] Start: 12-17-2025 Diabetes Screening Diabetes Screening [facility] Start: 12-11-2025 DIABETES SCREEN DIABETES SCREEN [facility] Start: 12-10-2025 DIABETES SCREEN DIABETES SCREEN [facility] Start: 12-09-2025 DIABETES SCREEN DIABETES SCREEN [facility] Start: 11-26-2025 DIABETES SCREEN DIABETES SCREEN [facility] Start: 11-11-2025 DIABETES SCREEN DIABETES SCREEN [facility] Start: 10-30-2025 DIABETES SCREEN DIABETES SCREEN [facility] Start: 10-07-2025 DIABETES SCREEN DIABETES SCREEN [facility] Start: 09-23-2025 DIABETES SCREEN DIABETES SCREEN [facility] Start: 05-30-2026 DIABETES SCREEN DIABETES SCREEN [facility] Start: 08-26-2025 DIABETES SCREEN DIABETES SCREEN [facility] Start: 06-19-2025 DIABETES SCREEN DIABETES SCREEN [facility] Start: 06-19-2024 DIABETES SCREEN DIABETES SCREEN [facility] Start: 01-08-2024 Covid-19 Vaccine ( season) Covid-19 Vaccine () [facility] Start: 01-08-2024 End: 01-08-2024 ambulatory 01/08/2024 11:00 AM EDT OT/PT/Speech Visit [facility] [address] [place] [address] [phone] Андрей Mon, PT [address] [place], [place] [phone] TIA - requested acupuncture,would like dry needling if appropriate [facility] Comment on above: TIA - requested acupuncture,would like d ry needling if appropriate Start: 01-01-2024 End: 01-01-2024 ambulatory 01/01/2024 10:15 AM EDT OT/PT/Speech Visit [facility] [address] [place] [address] [phone] Heaven Shelley, TOP LIFT SCOURER [address] [place], [place] [phone] TIA - requested acupuncture,would like dry needling if appropriate [facility] Comment on above: TIA - requested acupuncture,would like d ry needling if appropriate Start: 12-25-2023 End: 12-25-2023 ambulatory 12/25/2023 9:30 AM EDT OT/PT/Speech Visit [facility] [address] [place] [address] [phone] Heaven Shelley, TOP LIFT SCOURER [address] [place], [place] [phone] TIA - requested acupuncture,would like dry needling if appropriate [facility] Comment on above: TIA - requested acupuncture,would like d ry needling if appropriate Start: 12-18-2023 Complete blood count Hemoglobin/Hematocrit [facility] Start: 12-18-2023 Creatinine measurement Serum Creatinine [facility] [facility] Start: 12-18-2023 HEMOGLOBIN/HEMATOCRIT HEMOGLOBIN/HEMATOCRIT [facility] Start: 12-18-2023 SERUM CREATININE SERUM CREATININE [facility] Start: 12-18-2023 End: 12-18-2023 ambulatory 12/18/2023 8:45 AM EDT OT/PT/Speech Visit [facility] [address] [phone] Lexie Valverde, PT [address] [address] TIA - requested acupuncture,would like dry needling if appropriate [facility] Comment on above: TIA - requested acupuncture,would like d ry needling if appropriate Start: 12-14-2023 Influenza vaccination Influenza Vaccine (#1) [facility] Start: 12-12-2023 HEMOGLOBIN/HEMATOCRIT HEMOGLOBIN/HEMATOCRIT [facility] Start: 12-12-2023 SERUM CREATININE SERUM CREATININE [facility] Start: 12-11-2023 HEMOGLOBIN/HEMATOCRIT HEMOGLOBIN/HEMATOCRIT [facility] Start: 12-11-2023 SERUM CREATININE SERUM CREATININE [facility] Start: 12-10-2023 HEMOGLOBIN/HEMATOCRIT HEMOGLOBIN/HEMATOCRIT [facility] Start: 12-10-2023 SERUM CREATININE SERUM CREATININE [facility] Start: 11-27-2023 HEMOGLOBIN/HEMATOCRIT HEMOGLOBIN/HEMATOCRIT [facility] Start: 11-27-2023 SERUM CREATININE SERUM CREATININE [facility] Start: 11-22-2023 ANNUAL PCP TEAM CHRONIC DISEASE VISIT ANNUAL PCP TEAM CHRONIC DISEASE VISIT [facility] Start: 11-22-2023 BP CONTROLLED (<130/80) BP CONTROLLED (<130/80) [facility] Start: 11-19-2023 SERUM CREATININE SERUM CREATININE [facility] Start: 11-12-2023 HEMOGLOBIN/HEMATOCRIT HEMOGLOBIN/HEMATOCRIT [facility] Start: 11-12-2023 SERUM CREATININE SERUM CREATININE [facility] Start: 11-12-2023 End: 11-12-2023 ambulatory 11/12/2023 11:00 AM EDT [facility] [address] [id number] Hortencia Gallardo MD [facility] [address] [address] F[facility] Comment on above: F/U- Bleeding Start: 10-31-2023 HEMOGLOBIN/HEMATOCRIT HEMOGLOBIN/HEMATOCRIT [facility] Start: 10-31-2023 SERUM CREATININE SERUM CREATININE [facility] Start: 10-18-2023 ANNUAL PCP TEAM CHRONIC DISEASE VISIT ANNUAL PCP TEAM CHRONIC DISEASE VISIT [facility] Start: 10-17-2023 HEMOGLOBIN/HEMATOCRIT HEMOGLOBIN/HEMATOCRIT [facility] Start: 10-08-2023 HEMOGLOBIN/HEMATOCRIT HEMOGLOBIN/HEMATOCRIT [facility] Start: 10-08-2023 SERUM CREATININE SERUM CREATININE [facility] Start: 09-24-2023 End: 09-24-2023 ambulatory 09/24/2023 4:00 PM EDT [facility] [address] [phone] Hortencia Gallardo MD [facility] [address] [place], [place] [id number] F/U Gastroenterology Comment on above: F/U Start: 09-24-2023 HEMOGLOBIN/HEMATOCRIT HEMOGLOBIN/HEMATOCRIT [facility] Start: 09-24-2023 SERUM CREATININE SERUM CREATININE [facility] Start: 09-11-2023 HEMOGLOBIN/HEMATOCRIT HEMOGLOBIN/HEMATOCRIT [facility] Start: 09-11-2023 SERUM CREATININE SERUM CREATININE [facility] Start: 08-27-2023 HEMOGLOBIN/HEMATOCRIT HEMOGLOBIN/HEMATOCRIT [facility] Start: 08-27-2023 SERUM CREATININE SERUM CREATININE [facility] Start: 08-15-2023 HEMOGLOBIN/HEMATOCRIT HEMOGLOBIN/HEMATOCRIT [facility] Start: 08-07-2023 HEMOGLOBIN/HEMATOCRIT HEMOGLOBIN/HEMATOCRIT [facility] Start: 08-07-2023 SERUM CREATININE SERUM CREATININE [facility] Start: 07-31-2023 ANNUAL PCP TEAM CHRONIC DISEASE VISIT ANNUAL PCP TEAM CHRONIC DISEASE VISIT [facility] Start: 07-31-2023 HEMOGLOBIN/HEMATOCRIT HEMOGLOBIN/HEMATOCRIT [facility] Start: 07-31-2023 SERUM CREATININE SERUM CREATININE [facility] Start: 07-19-2023 HEMOGLOBIN/HEMATOCRIT HEMOGLOBIN/HEMATOCRIT [facility] Start: 07-12-2023 ANNUAL PCP TEAM CHRONIC DISEASE VISIT ANNUAL PCP TEAM CHRONIC DISEASE VISIT [facility] Start: 07-03-2023 ANNUAL PCP TEAM CHRONIC DISEASE VISIT ANNUAL PCP TEAM CHRONIC DISEASE VISIT [facility] Start: 07-03-2023 Hepatitis B surface antibody level LDL CHOLESTEROL [facility] Start: 06-20-2023 HEMOGLOBIN/HEMATOCRIT HEMOGLOBIN/HEMATOCRIT [facility] Start: 06-20-2023 SERUM CREATININE SERUM CREATININE [facility] Start: 06-05-2023 ANNUAL PCP TEAM CHRONIC DISEASE VISIT ANNUAL PCP TEAM CHRONIC DISEASE VISIT [facility] Start: 05-29-2023 HEMOGLOBIN/HEMATOCRIT HEMOGLOBIN/HEMATOCRIT [facility] Start: 05-06-2023 ANNUAL PCP TEAM CHRONIC DISEASE VISIT ANNUAL PCP TEAM CHRONIC DISEASE VISIT [facility] Start: 04-23-2023 HEMOGLOBIN/HEMATOCRIT HEMOGLOBIN/HEMATOCRIT [facility] Start: 04-17-2023 ANNUAL PCP TEAM CHRONIC DISEASE VISIT ANNUAL PCP TEAM CHRONIC DISEASE VISIT [facility] Start: 04-14-2023 Advance Directive Discussion Advance Directive Discussion [facility] Start: 04-14-2023 Behavioral Health Screening Behavioral Health Screening [facility] Start: 04-14-2023 Depression Assessment Depression Assessment [facility] Start: 04-08-2023 COVID-19 Vaccine (4 - Moderna risk series) COVID-19 Vaccine (4 - Moderna risk series) [facility] Start: 04-08-2023 Covid-19 Vaccine () Covid-19 Vaccine () [facility] Start: 03-18-2023 HEMOGLOBIN/HEMATOCRIT HEMOGLOBIN/HEMATOCRIT [facility] Start: 03-18-2023 SERUM CREATININE SERUM CREATININE [facility] Start: 02-24-2023 End: 12-24-2023 Ct thorax w/o contrast material CT CHEST WO IVCON Radiology Routine Renal cancer, right (HCC) Expected: 02/24/2023 (Approximate), Expires: 12/24/2023 [facility] Work Phone: Comment on above: Expected: 02/24/2023 (Approximate), Expi res: 12/24/2023 Start: 02-18-2023 HEMOGLOBIN/HEMATOCRIT HEMOGLOBIN/HEMATOCRIT [facility] Start: 01-23-2023 ANNUAL PCP TEAM CHRONIC DISEASE VISIT ANNUAL PCP TEAM CHRONIC DISEASE VISIT [facility] Start: 01-17-2023 HEMOGLOBIN/HEMATOCRIT HEMOGLOBIN/HEMATOCRIT [facility] Start: 12-13-2022 Covid-19 Vaccine () Covid-19 Vaccine () [facility] Start: 12-13-2022 HEMOGLOBIN/HEMATOCRIT HEMOGLOBIN/HEMATOCRIT [facility] Start: 12-13-2022 Influenza vaccination [facility] Start: 12-04-2022 End: 02-03-2023 CBC W Auto Differential panel - Blood CBC + DIFF Lab Routine Essential thrombocythemia (HCC) Expected: 12/04/2022 (Approximate), Expires: 02/03/2023 [facility] Work Phone: Comment on above: Expected: 12/04/2022 (Approximate), Expi res: 02/03/2023 Start: 12-03-2022 ANNUAL PCP TEAM CHRONIC DISEASE VISIT ANNUAL PCP TEAM CHRONIC DISEASE VISIT [facility] Start: 11-12-2022 HEMOGLOBIN/HEMATOCRIT HEMOGLOBIN/HEMATOCRIT [facility] Start: 11-12-2022 SERUM CREATININE SERUM CREATININE [facility] Start: 10-24-2022 End: 12-24-2022 CBC W Auto Differential panel - Blood CBC + DIFF Lab Routine Essential thrombocythemia (HCC) Expected: 10/24/2022, Expires: 12/24/2022 [facility] Work Phone: Comment on above: Expected: 10/24/2022, Expires: 3 Start: 10-24-2022 End: 12-24-2022 TYPE + SCREEN TYPE + SCREEN Blood Bank Routine Essential thrombocythemia (HCC) Expected: 10/24/2022, Expires: 12/24/2022 [facility] Work Phone: Comment on above: Expected: 10/24/2022, Expires: 3 Start: 10-22-2022 ANNUAL PCP TEAM CHRONIC DISEASE VISIT ANNUAL PCP TEAM CHRONIC DISEASE VISIT [facility] Start: 10-22-2022 BP CONTROLLED (<130/80) BP CONTROLLED (<130/80) [facility] Start: 10-22-2022 HEMOGLOBIN/HEMATOCRIT HEMOGLOBIN/HEMATOCRIT [facility] Start: 10-16-2022 HEMOGLOBIN/HEMATOCRIT HEMOGLOBIN/HEMATOCRIT [facility] Start: 10-10-2022 End: 12-10-2022 CBC W Auto Differential panel - Blood CBC + DIFF Lab Routine Essential thrombocythemia (HCC) Expected: 10/10/2022, Expires: 12/10/2022 [facility] Work Phone: Comment on above: Expected: 10/10/2022, Expires: 3 Start: 10-02-2022 BP CONTROLLED (<130/80) BP CONTROLLED (<130/80) [facility] Start: 09-27-2022 HEMOGLOBIN/HEMATOCRIT HEMOGLOBIN/HEMATOCRIT [facility] Start: 09-21-2022 End: 11-21-2022 Comprehensive metabolic 2000 panel - Serum or Plasma COMP METABOLIC PANEL Lab Routine Essential thrombocythemia (HCC) Expected: 09/21/2022 (Approximate), Expires: 11/21/2022 [facility] Work Phone: Comment on above: Expected: 09/21/2022 (Approximate), Expi res: 11/21/2022 Start: 09-19-2022 BP CONTROLLED (<130/80) BP CONTROLLED (<130/80) [facility] Start: 09-12-2022 ANNUAL PCP TEAM CHRONIC DISEASE VISIT ANNUAL PCP TEAM CHRONIC DISEASE VISIT [facility] Start: 09-12-2022 BP CONTROLLED (<130/80) BP CONTROLLED (<130/80) [facility] Start: 09-11-2022 HEMOGLOBIN/HEMATOCRIT HEMOGLOBIN/HEMATOCRIT [facility] Start: 08-27-2022 End: 10-27-2022 TYPE + SCREEN [facility] Work Phone: Comment on above: Expected: 08/27/2022 (Approximate), Expi res: 10/27/2022 Start: 08-21-2022 Colonoscopy COLONOSCOPY [facility] Start: 08-21-2022 COLORECTAL CANCER SCREENING COLORECTAL CANCER SCREENING [facility] Start: 08-14-2022 HEMOGLOBIN/HEMATOCRIT HEMOGLOBIN/HEMATOCRIT [facility] Start: 08-12-2022 End: 10-12-2022 TYPE + SCREEN TYPE + SCREEN Blood Bank Routine Iron deficiency anemia due to chronic blood loss Expected: 08/12/2022 (Approximate), Expires: 10/12/2022 [facility] Work Phone: Comment on above: Expected: 08/12/2022 (Approximate), Expi res: 10/12/2022 Start: 07-25-2022 End: 09-24-2022 CBC W Auto Differential panel - Blood CBC + DIFF Lab Routine Iron deficiency anemia due to chronic blood loss Acute deep vein thrombosis (DVT) of popliteal vein of left lower extremity (HCC) Expected: 07/25/2022, Expires: 09/24/2022 [facility] Work Phone: Comment on above: Expected: 07/25/2022, Expires: 3 Start: 07-17-2022 ANNUAL PCP TEAM CHRONIC DISEASE VISIT ANNUAL PCP TEAM CHRONIC DISEASE VISIT [facility] Start: 07-17-2022 HEMOGLOBIN/HEMATOCRIT HEMOGLOBIN/HEMATOCRIT [facility] Start: 07-02-2022 End: 09-01-2022 Alpha 1 antitrypsin [Mass/volume] in Serum or Plasma [facility] Work Phone: Comment on above: Expected: 07/02/2022, Expires: 3 Start: 06-20-2022 BP CONTROLLED (<130/80) BP CONTROLLED (<130/80) [facility] Start: 06-19-2022 HEMOGLOBIN/HEMATOCRIT HEMOGLOBIN/HEMATOCRIT [facility] Start: 06-19-2022 SERUM CREATININE SERUM CREATININE [facility] Start: 05-28-2022 ANNUAL PCP TEAM CHRONIC DISEASE VISIT ANNUAL PCP TEAM CHRONIC DISEASE VISIT [facility] Start: 05-15-2022 FECAL OCCULT BLOOD FECAL OCCULT BLOOD [facility] Start: 05-15-2022 Screening for malignant neoplasm of colon Fecal Occult Blood [facility] Start: 05-13-2022 Diabetes mellitus screening Diabetes Screening [facility] Start: 04-30-2022 COVID-19 VACCINE (6 - Moderna risk series) COVID-19 VACCINE (6 - Moderna risk series) [facility] Start: 04-20-2022 DTaP/Tdap/Td Vaccines (2 - Td or Tdap) DTaP/Tdap/Td Vaccines (2 - Td or Tdap) [facility] Start: 04-20-2022 Urine microalbumin profile DTaP,Tdap,Td Vaccine (2 - Td or Tdap) [facility] Start: 04-14-2022 ADVANCE DIRECTIVE DISCUSSION ADVANCE DIRECTIVE DISCUSSION [facility] Start: 04-14-2022 DEPRESSION ASSESSMENT DEPRESSION ASSESSMENT [facility] Start: 04-05-2022 Adult depression screening assessment DEPRESSION SCREENING [facility] Start: 02-28-2022 SHINGRIX VACCINE (2 of 3) SHINGRIX VACCINE (2 of 3) [facility] Comment on above: Postponed from 11/12/2015 (Declined at t his time) Start: 02-28-2022 Urine microalbumin profile DTAP,TDAP,TD (1 - Tdap) [facility] Comment on above: Postponed from 1972 (Declined at t his time) Start: 02-27-2022 PNEUMOVAX AGE 65 AND OVER WITH 5YR LOOKBACK (#1) PNEUMOVAX AGE 65 AND OVER WITH 5YR LOOKBACK (#1) [facility] Start: 12-13-2021 Influenza vaccination INFLUENZA (#1) [facility] Start: 11-23-2021 COVID-19 VACCINE (5 - Booster for Moderna series) COVID-19 VACCINE (5 - Booster for Moderna series) [facility] Start: 10-24-2021 End: 12-24-2021 TYPE + SCREEN TYPE + SCREEN Blood Bank Routine Iron deficiency anemia due to chronic blood loss Expected: 10/24/2021 (Approximate), Expires: 12/24/2021 [facility] Work Phone: Comment on above: Expected: 10/24/2021 (Approximate), Expi res: 12/24/2021 Start: 10-22-2021 End: 12-22-2021 CBC W Auto Differential panel - Blood [facility] Work Phone: Comment on above: Expected: 10/22/2021, Expires: 2 Start: 10-22-2021 End: 12-22-2021 Iron and Iron binding capacity panel - Serum or Plasma [facility] Work Phone: Comment on above: Expected: 10/22/2021, Expires: 2 Start: 10-16-2021 End: 12-16-2021 TYPE + SCREEN TYPE + SCREEN Blood Bank Routine Iron deficiency anemia due to chronic blood loss Expected: 10/16/2021 (Approximate), Expires: 12/16/2021 [facility] Work Phone: Comment on above: Expected: 10/16/2021 (Approximate), Expi res: 12/16/2021 Start: 10-12-2021 End: 12-12-2021 Prostate Specific Ag Free [Mass/volume] in Serum or Plasma PSA FREE Lab Routine Elevated PSA Expected: 10/12/2021, Expires: 12/12/2021 [facility] Work Phone: Comment on above: Expected: 10/12/2021, Expires: 2 Start: 10-02-2021 End: 12-02-2021 Lipid 1996 panel - Serum or Plasma LIPID PANEL BASIC Lab Routine Post PTCA Mixed hyperlipidemia Expected: 10/02/2021, Expires: 12/02/2021 [facility] Work Phone: Comment on above: Expected: 10/02/2021, Expires: 2 Start: 09-18-2021 COVID-19 VACCINE (5 - Booster for Moderna series) COVID-19 VACCINE (5 - Booster for Moderna series) [facility] Start: 09-15-2021 End: 11-15-2021 Prostate specific Ag [Mass/volume] in Serum or Plasma PSA/PROSTSPECAG DIAG Lab Routine Elevated prostate specific antigen (PSA) Expected: 09/15/2021, Expires: 11/15/2021 [facility] Work Phone: Comment on above: Expected: 09/15/2021, Expires: 2 Start: 09-06-2021 SHINGRIX VACCINE (2 of 2) SHINGRIX VACCINE (2 of 2) [facility] Start: 09-06-2021 SHINGRIX VACCINE (3 of 3) SHINGRIX VACCINE (3 of 3) [facility] Start: 08-24-2021 BP CONTROLLED (<130/80) BP CONTROLLED (<130/80) [facility] Start: 06-11-2021 COVID-19 VACCINE (4 - Booster for Moderna series) COVID-19 VACCINE (4 - Booster for Moderna series) [facility] Start: 04-14-2021 ADVANCE DIRECTIVE DISCUSSION ADVANCE DIRECTIVE DISCUSSION [facility] Start: 04-14-2021 DEPRESSION ASSESSMENT DEPRESSION ASSESSMENT [facility] Start: 02-27-2018 PNEUMOCOCCAL: 65+ (2 - PCV) PNEUMOCOCCAL: 65+ (2 - PCV) [facility] Start: 2013 RSV Vaccine (1 - 1-dose 60+ series) RSV Vaccine (1 - 1-dose 60+ series) [facility] Start: 1998 COLOGUARD (FIT-DNA) COLOGUARD (FIT-DNA) [facility] Start: [address] COLONOGRAPHY [facility] Start: 1998 Screening for malignant neoplasm of colon [facility] Start: 1998 SIGMOIDOSCOPY SIGMOIDOSCOPY [facility] Start: 10-27-1983 Zoledronic acid therapy ALPHA-1 ANTITRYPSIN DEFICIENCY SCREENING [facility] Start: 1972 Urine microalbumin profile [facility] Start: 10-27-1971 Anxiety Screening Anxiety Screening [facility] Start: 10-27-1971 Depression Screening Depression Screening [facility] Start: 10-27-1971 Hepatitis C screening Hepatitis C Screening [facility] Start: 10-27-1971 SPIROMETRY SPIROMETRY [facility] Start: 1965 Depression Screening Depression Screening [facility] Start: 1955 Lipid panel Lipid Panel [facility] Start: 1955 Medicare Annual Wellness (AWV) Medicare Annual Wellness (AWV) [facility] Start: 1955 Medicare Annual Wellness Visit Medicare Annual Wellness Visit (AWV) [facility] Start: 1955 Screening for malignant neoplasm of colon [facility] End: 08-14-2022 CBC W Auto Differential panel - Blood CBC + DIFF Lab Routine CLL (chronic lymphocytic leukemia) (HCC) Once per month for 20 Occurrences starting 08/14/2021 until 08/14/2022 [facility] Work Phone: Comment on above: Once per month for 20 Occurrences starti 08/14/2021 until 08/14/2022 End: 03-22-2023 CBC W Auto Differential panel - Blood CBC + DIFF Lab Routine Essential thrombocythemia (HCC) Once per month for 20 Occurrences starting 03/22/2022 until 03/22/2023 [facility] Work Phone: Comment on above: Once per month for 20 Occurrences starti 03/22/2022 until 03/22/2023 End: 06-21-2023 CBC W Auto Differential panel - Blood CBC + DIFF Lab Routine Essential thrombocythemia (HCC) Once per month for 20 Occurrences starting 06/21/2022 until 06/21/2023 [facility] Work Phone: Comment on above: Once per month for 20 Occurrences starti ng 06/21/2022 until 06/21/2023 End: 08-02-2023 CBC W Auto Differential panel - Blood CBC + DIFF Lab Routine Essential thrombocythemia (HCC) Every other week for 10 Occurrences starting 08/02/2022 until 08/02/2023 [facility] Work Phone: Comment on above: Every other week for 10 Occurrences phil cannon 08/02/2022 until 08/02/2023 End: 08-20-2023 CBC W Auto Differential panel - Blood CBC + DIFF Lab Routine Iron deficiency anemia due to chronic blood loss Every other week for 10 Occurrences starting 08/20/2022 until 08/20/2023 [facility] Work Phone: Comment on above: Every other week for 10 Occurrences phil cannon 08/20/2022 until 08/20/2023 Clostridioides difficile toxin genes [Presence] in Stool by MYA with probe detection C. DIFFICILE PCR Lab Routine Diarrhea, unspecified type Acute deep vein thrombosis (DVT) of left lower extremity, unspecified vein (HCC) 10/22/2021 3:30 PM EDT [facility] Work Phone: End: 08-08-2023 COLONOSCOPY DIAGNOSTIC COLONOSCOPY DIAGNOSTIC Endoscopy Routine Gastrointestinal hemorrhage, unspecified gastrointestinal hemorrhage type 1 Occurrences starting 08/07/2022 until 08/08/2023 [facility] Work Phone: Comment on above: 1 Occurrences starting 08/07/2022 until 08/08/2023 End: 08-20-2023 Comprehensive metabolic 2000 panel - Serum or Plasma COMP METABOLIC PANEL Lab Routine Iron deficiency anemia due to chronic blood loss Every other week for 10 Occurrences starting 08/20/2022 until 08/20/2023 [facility] Work Phone: Comment on above: Every other week for 10 Occurrences phil cannon 08/20/2022 until 08/20/2023 End: 08-01-2023 Dup-scan xtr veins unilateral/limited study US DVT LOWER LT Radiology Routine Deep vein thrombosis (DVT) of left lower extremity, unspecified chronicity, unspecified vein (HCC) Localized swelling, mass and lump, left upper limb 1 Occurrences starting 07/02/2022 until 08/01/2023 [facility] Work Phone: Comment on above: 1 Occurrences starting 07/02/2022 until 08/01/2023 ENTERIC BACTERIAL PANEL BY PCR ENTERIC BACTERIAL PANEL BY PCR Lab Routine Diarrhea, unspecified type 10/22/2021 3:30 PM EDT [facility] Work Phone: End: 08-08-2023 ENTEROSCOPY ENTEROSCOPY Endoscopy Routine Gastrointestinal hemorrhage, unspecified gastrointestinal hemorrhage type 1 Occurrences starting 08/07/2022 until 08/08/2023 [facility] Work Phone: Comment on above: 1 Occurrences starting 08/07/2022 until 08/08/2023 End: 08-14-2022 FERRITIN BLD FERRITIN BLD Lab Routine CLL (chronic lymphocytic leukemia) (HCC) Once per month for 20 Occurrences starting 08/14/2021 until 08/14/2022 [facility] Work Phone: Comment on above: Once per month for 20 Occurrences starti ng 08/14/2021 until 08/14/2022 Influenza virus A an d B RNA and SARS-CoV-2 (COVID-19) N gene panel - Respiratory specimen by MYA with probe detection COVID WITH FLUA+B, ROUTINE Microbiology Routine Chronic obstructive pulmonary disease with acute exacerbation (HCC) 07/02/2022 10:20 AM EDT [facility] Work Phone: End: 09-19-2022 IRON + TIBC IRON + TIBC Lab Routine Iron deficiency anemia due to chronic blood loss Every 3 months for 20 Occurrences starting 09/19/2021 until 09/19/2022 [facility] Work Phone: Comment on above: Every 3 months for 20 Occurrences starti ng 09/19/2021 until 09/19/2022 OCCULT BLD EXAM-DIAG OCCULT BLD EXAM-DIAG Microbiology Routine Diarrhea, unspecified type Ordered: 10/22/2021 [facility] Work Phone: Comment on above: Ordered: 10/22/2021 End: 07-18-2022 Prostate specific Ag [Mass/volume] in Serum or Plasma PSA/PROSTSPECAG DIAG Lab Routine Elevated prostate specific antigen (PSA) 2 Occurrences starting 07/18/2021 until 07/18/2022 [facility] Work Phone: Comment on above: 2 Occurrences starting 07/18/2021 until 07/18/2022 End: 01-17-2023 Prostate specific Ag [Mass/volume] in Serum or Plasma PSA/PROSTSPECAG DIAG Lab Routine Elevated prostate specific antigen (PSA) Atypical small acinar proliferation of prostate Every 6 months for 2 Occurrences starting 01/17/2022 until 01/17/2023 [facility] Work Phone: Comment on above: Every 6 months for 2 Occurrences startin g 01/17/2022 until 01/17/2023 PT PLAN OF CARE CERTIFICATION PT PLAN OF CARE CERTIFICATION Procedures Routine Impaired functional mobility, balance, gait, and endurance Chronic pain of left knee Left hip pain Ordered: 07/09/2021 [facility] Work Phone: Comment on above: Ordered: 07/09/2021 PT PLAN OF CARE CERTIFICATION PT PLAN OF CARE CERTIFICATION Procedures Routine Impaired functional mobility, balance, gait, and endurance Chronic pain of left knee Left hip pain Ordered: 08/27/2021 [facility] Work Phone: Comment on above: Ordered: 08/27/2021 PT PLAN OF CARE CERTIFICATION PT PLAN OF CARE CERTIFICATION Procedures Routine Impaired functional mobility, balance, gait, and endurance Left hip pain Ordered: 10/09/2021 [facility] Work Phone: Comment on above: Ordered: 10/09/2021 PT PLAN OF CARE CERTIFICATION PT PLAN OF CARE CERTIFICATION Procedures Routine Physical deconditioning Ordered: 05/31/2022 [facility] Work Phone: Comment on above: Ordered: 05/31/2022 RED BLOOD CELLS, ADULT RED BLOOD CELLS, ADULT Blood Bank Routine Acute blood loss anemia Severe anemia Stage 3 chronic kidney disease, unspecified whether stage 3a or 3b CKD (HCC) Other iron deficiency anemia 08/27/2022 12:00 AM EDT [facility] Work Phone: RED BLOOD CELLS, ADULT RED BLOOD CELLS, ADULT Blood Bank Routine Stage 3 chronic kidney disease, unspecified whether stage 3a or 3b CKD (HCC) Acute blood loss anemia Severe anemia Other iron deficiency anemia 10/08/2022 12:00 AM EDT [facility] Work Phone: RSV B/O RSV B/O Lab Rout ine Chronic obstructive pulmonary disease with acute exacerbation (HCC) Ordered: 07/02/2022 [facility] Work Phone: Comment on above: Ordered: 07/02/2022 SARS-CoV-2 (COVID-19 ) RNA [Presence] in Respiratory specimen by MYA with probe detection 2019 CORONAVIRUS Microbiology Routine Malaise and fatigue Ordered: 11/12/2022 [facility] Work Phone: Comment on above: Ordered: 11/12/2022 End: 07-03-2023 Screening colonoscopy COLONOSCOPY SCREENING Endoscopy Routine History of colonic polyps 1 Occurrences starting 07/02/2022 until 07/03/2023 [facility] Work Phone: Comment on above: 1 Occurrences starting 07/02/2022 until 07/03/2023 End: 08-01-2023 SPIROMETRY - BASELINE AND POST DILATOR SPIROMETRY - BASELINE AND POST DILATOR PFT Routine Chronic obstructive pulmonary disease with acute exacerbation (HCC) 1 Occurrences starting 07/02/2022 until 08/01/2023 [facility] Work Phone: Comment on above: 1 Occurrences starting 07/02/2022 until 08/01/2023 SPIROMETRY - BASELIN E AND POST DILATOR SPIROMETRY - BASELINE AND POST DILATOR PFT Routine Chronic obstructive pulmonary disease with acute exacerbation (HCC) 07/18/2022 2:43 PM EDT [facility] Work Phone: End: 11-15-2023 US DVT LOWER BILATERAL US DVT LOWER BILATERAL Radiology Routine Leg edema 1 Occurrences starting 10/16/2022 until 11/15/2023 [facility] Work Phone: Comment on above: 1 Occurrences starting 10/16/2022 until 11/15/2023 End: 10-17-2022 US DVT LOWER BILATERAL [facility] Work Phone: Comment on above: 1 Occurrences starting 10/17/2022 until 10/17/2022 End: 08-10-2023 US DVT LOWER RIGHT US DVT LOWER RIGHT Radiology Routine Iron deficiency anemia due to chronic blood loss Acute deep vein thrombosis (DVT) of popliteal vein of left lower extremity (HCC) Right calf pain 1 Occurrences starting 07/11/2022 until 08/10/2023 [facility] Work Phone: Comment on above: 1 Occurrences starting 07/11/2022 until 08/10/2023 End: 07-18-2022 US DVT LOWER RIGHT [facility] Work Phone: Comment on above: 1 Occurrences starting 07/18/2022 until 07/18/2022 End: 08-10-2023 US EXTREMITY MASS/FLUID COLLECTION LEFT US EXTREMITY MASS/FLUID COLLECTION LEFT Radiology Routine Iron deficiency anemia due to chronic blood loss Acute deep vein thrombosis (DVT) of popliteal vein of left lower extremity (HCC) Right calf pain 1 Occurrences starting 07/11/2022 until 08/10/2023 [facility] Work Phone: Comment on above: 1 Occurrences starting 07/11/2022 until 08/10/2023 End: 07-18-2022 US EXTREMITY MASS/FLUID COLLECTION LEFT US EXTREMITY MASS/FLUID COLLECTION LEFT Radiology Routine Iron deficiency anemia due to chronic blood loss Acute deep vein thrombosis (DVT) of popliteal vein of left lower extremity (HCC) Right calf pain 1 Occurrences starting 07/18/2022 until 07/18/2022 [facility] Work Phone: Comment on above: 1 Occurrences starting 07/18/2022 until 07/18/2022 [facility] Immunizations Immunization Date Immunization Notes Care Provider Fa cili 02-11-2023 Moderna COVID-19 vaccine, Fall 2022, 12 yeasrs and older (50mcg/0.5mL) Melinda Bradshaw MD Work Phone: [facility] Work Phone: 01-20-2023 RSV, 60 Years And Ol vickie (AREXVY) Melinda Bradshaw MD Work Phone: [facility] Work Phone: 01-10-2023 influenza, injectabl e, quadrivalent, contains preservative Melinda Bradshaw MD Work Phone: [facility] Work Phone: 01-10-2023 influenza virus vaccine, unspecified formulation Deysi Diop PHYSICIST NUCLEAR - STUDIO PRODUCER Work Phone: [facility] 03-15-2022 pneumococcal (PCV20) vaccine, 20 valent (PREVNAR 20) Annmarie Ronquillo PA-C Work Phone: [facility] Work Phone: 03-05-2022 Moderna COVID-19 vaccine, bivalent, blue cap/bee label *Check age/dose* Melinda Bradshaw MD Work Phone: [facility] Work Phone: 10-16-2021 zoster vaccine recombinant Ulises Ramos DO Work Phone: [facility] 07-24-2021 Pfizer Bee Cap SARS-CoV-2 Melinda Bradshaw MD Work Phone: [facility] Work Phone: 07-12-2021 zoster vaccine recombinant Loy Mcallister MD Work Phone: [facility] Work Phone: 05-22-2021 influenza, high-dose , quadrivalent vaccine (FLUZONE HIGH DOSE QUADRIVALENT) Sia Hodge PT Work Phone: [facility] 05-22-2021 influenza virus vaccine, unspecified formulation Marley Falk RD Work Phone: [facility] 07-19-2020 COVID-19 vaccine, fu ll dose (MODERNA) Sia Hodge PT Work Phone: [facility] 06-21-2020 COVID-19 vaccine, fu ll dose (MODERNA) Sia Hodge PT Work Phone: [facility] 01-19-2020 pneumococcal conjuga te vaccine, 13 valent Ulises Ramos DO Work Phone: [facility] 01-18-2020 influenza, high-dose , quadrivalent vaccine (FLUZONE HIGH DOSE QUADRIVALENT) Sia Hodge PT Work Phone: [facility] 01-18-2019 influenza, high dose seasonal, preservative-free Sia Hodge PT Work Phone: [facility] 01-20-2018 influenza, injectabl e, quadrivalent, preservative free Sia Hodge PT Work Phone: [facility] 02-27-2017 pneumococcal polysaccharide vaccine, 23 valent Sia Hodge PT Work Phone: [facility] 02-09-2017 Influenza, injectabl e, Madin [place] Canine Kidney, preservative free, quadrivalent Sia Hodge PT Work Phone: [facility] 01-31-2017 influenza, seasonal, injectable Sia Hodge PT Work Phone: [facility] 09-17-2015 zoster vaccine, live Sia Po tts PT Work Phone: [facility] 04-20-2012 influenza virus vaccine, unspecified formulation Melinda Bradshaw MD Work Phone: [facility] Work Phone: 04-20-2012 tetanus toxoid, redu myra diphtheria toxoid, and acellular pertussis vaccine, adsorbed Melinda Bradshaw MD Work Phone: [facility] Work Phone: Payers Date Payer Category Payer Medicare [id number] 2020 Medicare MEDICARE SNF GEN QUENTIN [id number] 2020-Present [phone] [address] [place] [address] Medicare [id number] 2019 Unknown 2019 Unknown MMO MMO MEDICARE SUPPLEMENT [id number] 2019-Present [phone] [address] [place] [address] Indemnity [id number] 2018 Medicare MEDICARE MEDICAR E A AND B [id number] 2018-Present [phone] [address] [address] [place] [address] Medicare [id number] 2018 Medicare [id number] 1959 Medicare [id number] 1959 Unknown [id number] 1953 Unknown [id number] 1953 Unknown [id number] 1953 Unknown [id number] 1953 Unknown [id number] 1953 Unknown [id number] 1953 Unknown [id number] 1953 Unknown [id number] 1953 Unknown [id number] Social History Date Type Detail Facility Start: 12-22-2015 End: 12-03-2021 Tobacco smoking status NHIS Ex-smoker [facility] Start: 12-21-1980 End: 12-21-1990 History of tobacco use Current smoker [facility] Start: 12-21-1980 End: 12-21-1990 History of tobacco use Cigarette Smoker [facility] End: 12-21-1990 History of tobacco use Cigar Smoker [facility] Start: 12-22-2015 End: 12-03-2021 Tobacco use and exposure Smokeless tobacco non-user [facility] Start: 06-20-2021 End: 12-19-2022 Alcohol intake Current drinker of alcohol (finding) [facility] Start: 05-20-2021 End: 07-04-2022 History SDOH Alcohol Frequency 2 [facility] Start: 05-20-2021 End: 07-04-2022 History SDOH Alcohol Std Drinks 98 [facility] Start: 05-20-2021 End: 07-04-2022 History SDOH Alcohol Binge 1 [facility] Start: 01-17-2021 History SDOH Alcohol Comment very little [facility] Start: 05-20-2021 End: 07-04-2022 History SDOH Social Connections Phone 5 [facility] Start: 05-20-2021 End: 07-04-2022 History SDOH Social Connections Living 4 [facility] Start: 05-20-2021 History SDOH Physical Activity DPW 0 [facility] Start: 05-20-2021 End: 07-04-2022 History SDOH Stress 3 [facility] Start: 1955 Sex Assigned At Not on file [facility] Start: 06-26-2021 End: 02-20-2023 Exposure to SARS-CoV-2 (event) Not sure [facility] Start: 10-08-2021 End: 10-18-2021 Exposure to SARS-CoV-2 (event) Yes [facility] Start: 07-04-2022 End: 08-16-2022 History of Social function [facility] Start: 07-04-2022 End: 08-16-2022 Social connection and isolation panel [facility] How often do you att end restoration or christian services? Patient refused [facility] Do you belong to any clubs or organizations such as restoration groups, unions, fraternal or athletic groups, or school groups? No [facility] Are you now , , , , never or living with a partner? [facility] How often to you hav e a drink containing alcohol? Monthly or less [facility] How many standard dr inks containing alcohol do you have on a typical day? 3 or 4 [facility] How hard is it for y ou to pay for the very basics like food, housing, medical care, and heating Somewhat hard [facility] Do you feel stress - tense, restless, nervous, or anxious, or unable to sleep at night because your mind is troubled all the time - these days [OSQ] Only a little [facility] (I/We) worried louisa er (my/our) food would run out before (I/we) got money to buy more. DK or Refused [facility] Start: 02-20-2023 Tobacco smoking status NHIS Never smoked tobacco [facility] Work Phone: Start: 02-20-2023 Alcohol intake Ex-drinker (finding) [facility] Work Phone: Start: 12-19-2022 Tobacco smoking status Heavy tobacco smoker (finding) [facility] Start: 1955 Sex Assigned At Male [facility] Start: 05-05-2023 Gender identity Identifies as male gender (finding) [facility] [employer] Medical Equipment Procedure Code Equipment Code Equipment Original Text Equipment Identifier Dates Nail 11mm 400mm 125d Long Ti-15mo [id number] Cocr Intramedullary Green [id number] Start: 07-23-2020 5mm Ti Lck Scr W /[id number] Sdriv 50mm F/Im Nail-St [id number] Start: 07-23-2020 Screw Tfn-Advanc ed 10.35mm 3.5mm Bowen [id number] 90mm Bone Cannulated - [id number] Start: 07-23-2020 Stent-10/26/[id number]_[facility] Start: 2018 Goals Date Patient Goal Desired Activity /State Personal health goal Comment on above: Formatting of this n ote might be different from the original. Pt wants to be Healthy enough to do the things he wants to Personal health goal Comment on above: Formatting of this n ote might be different from the original. Well enough to travel Personal health goal Comment on above: Formatting of this n ote might be different from the original. Patient has the following general goals: Two PCP visits annually Patient Stated goal: Improve Health Patient will meet these goals by 08/16/23 (describe interventions done by PCC) Verbal instructions Comment on above: Formatting of this n ote might be different from the original. Pt wants to be Healthy enough to do the things he wants to Comment on above: Formatting of this n ote might be different from the original. Well enough to travel Comment on above: Formatting of this n ote might be different from the original. Patient has the following general goals: Two PCP visits annually Patient Stated goal: Improve Health Patient will meet these goals by 08/16/23 (describe interventions done by PCC) Verbal instructions Functional Status Date Assessment Result Facility 05-05-2023 Functional Status Room check performed [facility] 05-05-2023 Functional Status [facility] Mental Status Date Assessment Result Facility 05-05-2023 Mental Status Orientation Oriented x 4 [facility] 05-05-2023 Mental Status [facility] Clinical Notes 07-22-2020 to 01-01-2024 Heaven Shelley, [employer]ER - 01/01/2024 10:21 AM Андрей Thomson PT - 12/24/2023 1:24 PM Wilton Goldsmith RN - 12/05/2023 1:36 PM Wilton Goldsmith RN - 12/04/2023 12:00 PM EDT Note Date & Type Note Facility 01-01-2024 History of Present illness Narrative Episode Visit Count: 3 Therapist That Will Accept/Oversee The Plan Of Care: Alexsander Mon Start of Care Date: 11/20/23 Onset Date: 10/29/23 Plan of Care Certification Date: 11/20/23 Next Certification Due Date: 02/18/24 Patient Identified by Name and Date of : Yes REHABILITATION AND SPORTS THERAPY PHYSICAL THERAPY TREATMENT NOTE ASSESSMENT: Adina David tolerated the session with decreased activity tolerance due to fatigue and SOB. He demonstrated difficulty with strength and balance. Requires occasional rest reaks and dvitals monitored. The patient will continue to benefit from ongoing skilled physical therapy to progress toward set goals. PLAN FOR NEXT VISIT: Strength, Balance SUBJECTIVE: Was in the hospital for 17 days. Feels like back at square one. Going to see neurologist today for R calf. Ortho can't find an issue Pain: Pain Pain Level: 3 Pain Location: Calf - Right OBJECTIVE MEASURES WITH LEVEL OF FUNCTION: Vitals Pulse: 108 SpO2: 98 % Additional Vitals: Yes Intra Assessment 1: Heart Rate Intra 1, SpO2 Intra 1 Intra Heart Rate 1: 118 Intra SpO2 1: 97 Post Assessment: Heart Rate Post, SpO2 Post Post Heart Rate: 105 Post SpO2: 98 Vitals response to exercise: Yes TREATMENT: Therapeutic Exercise: 1: Nustep x 5 min concurrent with review of activity management 2: Bridging 5 x 2 3: Hooklying june 4: SL hip abd x 2 9: *Review of breathing techniques Skilled Intervention: Skilled judgment was used in selection of appropriate interventions. Neuromuscular Re-Education: 1: //bars: 2: -Step up to airex 3: -romberg EO/EC 4: -Head turns 5: -Alt toe taps to cones Skilled Intervention: Skilled judgment used to assess appropriate program for balance and coordination activity. Billing Therapeutic Exercise Treatment Minutes: 23 Neuromuscular Re-Education Treatment Minutes: 15 Skilled Treatment Time Minutes (timed and untimed codes): 38 Session Start Time : 1020 Heaven Shelley PTA documented in this encounter [facility] 12-24-2023 History of Present illness Narrative Images from the original note were not included. Episode Visit Count: 2 Therapist That Will Accept/Oversee The Plan Of Care: Alexsander oMn Start of Care Date: 11/20/23 Onset Date: 10/29/23 Plan of Care Certification Date: 11/20/23 Next Certification Due Date: 02/18/24 Patient Identified by Name and Date of : Yes REHABILITATION AND SPORTS THERAPY PHYSICAL THERAPY PROGRESS REPORT PLAN OF CARE UPDATE: Assessment: Adina David demonstrates no improvement due to no visits since eval. Patient continues to present with impairments in balance, flexibility, gait, independence in exercise, and strength that interfere with walking, physical activities, cooking, cleaning . Current prognosis is Good due to: current objective clinical presentation . He will benefit from continued skilled therapy services to meet the updated goals for this plan of care as noted below. Goals for Episode of Care: created on 11/20/23 through 01/15/24 Patient reported outcome of pain Interference will decrease T -score by a minimum of 5 points. [place] in home exercise program. Patient will demonstrate increase in hip strength to 4+/5 during manual muscle testing in order to improve function for prior functional tasks. Patient will Improve Timed Up and Go to <15 seconds to demonstrate decreased risk of falling. Patient will ascend and descend with rail with modified independence and safe technique demonstrating step over step pattern. Improve five time sit to stand by 2.3 seconds to meet MCID and decrease risk of falls. Improve DGI score to > or = to19/24 to decrease risk of falls based on MDC . Time Frame for Goals and Treatment : 01/15/24 Planned Interventions, Frequency, and Duration: 1x/week, 8 weeks Total Number of Visits Planned: 8 Patient to be seen for Therapeutic exercise (41906), Neuromuscular re-education (54397), Therapeutic activities (09821), Gait Training (64059), Patient/Family/Caregiver Education PLAN FOR NEXT VISIT: Strength, Balance SUBJECTIVE: . Sold house and will likely be moving to [place] in 1 month. Compliant with HEP. Functional Limitations: walking, physical activities, cooking, cleaning Pain: Pain Pain Level: 4 Pain Location: Calf - Right PROMIS Scales 12/24/2023 07/17/2023 06/05/2023 Higher is Better Phys Func - Score 32 (moderate dysfunction) 39 (moderate dysfunction) 38 (moderate dysfunction) Phys Func - Percentile 4 14 12 Self-Eff Symptom - Score 41 (Average) 41 (Average) 45 (Average) Self-Eff Symptom - Percentile 18 18 31 T-scores: mean of general population = 50. 5 points is clinically meaningfully difference Percentiles provide an indication of how the patient's score ranks in relation to the general population. Higher percentile rankings indicate better function/quality of life. 50th percentile is the average of the general population and indicates half of respondents had a worse score. OBJECTIVE MEASURES WITH LEVEL OF FUNCTION: Vitals BP: 140/91 TREATMENT: Therapeutic Exercise: 1: Nustep L3 x 7 min 2: Leg Press 70# 10x2 3: - Single LE 30# 10x1 B 4: Calf stretch Skilled Intervention: Skilled judgment was used in selection of appropriate interventions. Neuromuscular Re-Education: 1: // bars: AirEx - Narrow AMADA EO/EC 2: - Partial tandem 3: - 2x4 A/P static stand 4: Quadruped Alt/Dierks UE/LE Skilled Intervention: Skilled judgment used to assess appropriate program for balance and coordination activity. Billing Therapeutic Exercise Treatment Minutes: 25 Neuromuscular Re-Education Treatment Minutes: 15 Skilled Treatment Time Minutes (timed and untimed codes): 40 Total Session Time (minutes): 40 Session Start Time : 1235 Session Stop Time : 1315 Андрей Mon PT documented in this encounter [facility] 12-05-2023 Note HNO ID: [id number] Author: WILTON PALMA RN Service: ? Author Type: Registered Nurse Type: Progress Notes Filed: 12/05/2023 13:42 Note Text: [facility] Telephonic Outreach Provider Action/FYI Contacted for: Routine Telephonic Outreach Contact made with patient: No, unable to leave message. Wilton Palma RN December 05, 2023 1:36 PM [facility] 12-05-2023 History of Present illness Narrative [facility] Telephonic Outreach Provider Action/FYI Contacted for: Routine Telephonic Outreach Contact made with patient: No, unable to leave message. Wilton Palma RN December 05, 2023 1:36 PM [facility] Telephonic Outreach Provider Action/FYI 11/03/23-11/15/23 [facility] Contacted for: Routine Telephonic Outreach Contact made with patient: No, unable to leave message. Will reattempt call Wilton Palma RN December 04, 2023 12:15 PM documented in this encounter [facility] 12-04-2023 Note HNO ID: [id number] Author: WILTON PALMA RN Service: ? Author Type: Registered Nurse Type: Progress Notes Filed: 12/05/2023 13:42 Note Text: [facility] Telephonic Outreach Provider Action/FYI 11/03/23-11/15/23 [facility] Contacted for: Routine Telephonic Outreach Contact made with patient: No, unable to leave message. Will reattempt call Wilton Palma RN December 04, 2023 12:15 PM [facility] 12-04-2023 Note Patient Outreach (AM BC) ADINA DAVID Zachary ([id number]) 1955 Date Time Provider Department 12/04/23 WILTON PALMA [facility] During your visit today, we recorded the following information about you: Wilton Palma RN 12/05/2023 1:42 PM Signed [facility] Telephonic Outreach Provider Action/FYI 11/03/23-11/15/23 [facility] Contacted for: Routine Telephonic Outreach Contact made with patient: No, unable to leave message. Will reattempt call Wilton Palma RN December 04, 2023 12:15 PM Wilton Palma RN 12/05/2023 1:42 PM Signed [facility] Telephonic Outreach Provider Action/FYI Contacted for: Routine Telephonic Outreach Contact made with patient: No, unable to leave message. Wilton Palma RN December 05, 2023 1:36 PM Allergies As of Date: 12/04/2023 Noted Allergy Reaction DOXYCYCLINE 07/17/2021 5 - Intolerance Comments: Rash, diarrhea PENICILLIN 02/22/2017 4 - Hives PENICILLIN V POTASSIUM 12/20/2021 14 - Other: See Comments Date Reviewed: 12/19/2022 Reviewed by: Halle Dale MD - Fully Assessed Reason for Visit: Community Monitoring Outreach [Other] Prescriptions as of 12/05/2023 - REPATHA SURECLICK 140 mg/mL pen injector INJECT 1 DOSE SUBCUTANEOUSLY ONCE EVERY MONTH - tbwuucvurym-wcruwobso-tunjrfsq (TRELEGY ELLIPTA) 100-62.5-25 mcg inhalation powder Inhale 1 Puff as instructed once daily. - metoprolol tartrate, short acting, (LOPRESSOR) 25 mg tablet Take half a tablet by mouth twice daily. - enoxaparin (LOVENOX) 40 mg/0.4 mL Inject 0.4 mL subcutaneously every 24 hours. - hydroxyurea (HYDREA) 500 mg capsule Take 2 capsules by mouth once daily. - sodium bicarbonate 650 mg tablet Take 1 tablet by mouth twice daily. - omeprazole (PRILOSEC) 40 mg capsule Take 1 capsule by mouth once daily - zolpidem (AMBIEN) 5 mg tablet Take 1 tablet by mouth at bedtime as needed for up to 90 days. - magnesium oxide (MAG-OX) 400 mg (241.3 mg magnesium) tablet Take 0.5 tablets by mouth once daily. 0.5 tablet - CPAP - BABY ASPIRIN ORAL Take 81 mg by mouth once daily. - ergocalciferol 50,000 unit capsule (VITAMIN D2, DRISDOL) once every month. Problem List As Of Date 12/04/2023 Noted Resolved Multiple lipomas [D17.9] GERD (gastroesophageal reflux disease) [K21.9] H/O resection of large bowel [Z90.49] 04/14/2004 Essential hypertension [I10] Renal cancer, right (HCC) [C64.1] 04/29/2017 CLL (chronic lymphocytic leukemia) (HCC) [C91.1*06/13/2017 Iron deficiency anemia [D50.9] 06/13/2017 Iron adverse reaction [T45.4X5A] 10/24/2017 Frequency of urination [R35.0] 03/19/2018 02/11/2019 Nocturia [R35.1] 03/19/2018 BPH (benign prostatic hyperplasia) [N40.0] 10/05/2018 History of right nephrectomy [Z90.5] 10/05/2018 NSTEMI (non-ST elevated myocardial infarction) *10/24/2018 Stage 2 chronic kidney disease [N18.2] 11/10/2018 Post PTCA [Z98.61] 11/25/2018 S/P drug eluting coronary stent placement [Z95.*11/25/2018 GI bleed [K92.2] 12/31/2018 01/11/2019 Hypertriglyceridemia [E78.1] 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.* 01/11/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] DENG (acute kidney injury) (HCC) [N17.9] 01/07/2019 Facial numbness [R20.0] 03/31/2019 04/03/2019 Leukocytosis [D72.829] 03/31/2019 Essential thrombocythemia (HCC) [D47.3] 03/31/2019 CKD (chronic kidney disease) stage 3, GFR 30-59*03/31/2019 Closed left subtrochanteric femur fracture (HCC*07/22/2020 07/27/2020 Deep vein thrombosis (DVT) of femoral vein of l*03/14/2021 Leg swelling [M79.89] 03/14/2021 CIRA on CPAP [G47.33] 05/01/2021 Severe anemia [D64.9] 05/02/2021 Severe protein-calorie malnutrition (HCC) [E43] 05/09/2021 Acute blood loss anemia [D62] 05/16/2021 COVID-19 virus infection [U07.1] 05/16/2021 Obesity, Class I, BMI 30-34.9 [E66.9] 05/28/2021 Vitamin D deficiency [E55.9] 07/17/2021 Iron deficiency anemia due to chronic blood los*02/19/2022 SOB (shortness of breath) [R06.02] 11/27/2022 Lightheadedness [R42] 11/27/2022 Pulmonary embolism, unspecified chronicity, uns*12/01/2022 Coronary artery disease involving [place]*12/02/2022 Other emphysema (HCC) [J43.8] 12/02/2022 Chronic deep vein thrombosis (DVT) of proximal *12/02/2022 AVM (arteriovenous malformation) [Q27.30] 12/02/2022 History of gastrointestinal bleeding [Z87.19] 12/02/2022 Tachycardia [R00.0] 12/03/2022 Elevated troponin [R79.89] 12/03/2022 12/11/2022 Pulmonary nodules [R91.8] 12/05/2022 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 medical conditio*12/09/2022 Personal history of DVT (deep vein thrombosis) *12/11/2022 Anticoagulation management encounter [Z51.81, Z*12/11/2022 Primary insomnia [F51.01] 12/13/2022 Encounter Status:Closed by WILTON PALMA on 12/05/23 [facility] 11-20-2023 History of Present illness Narrative Program_ID:[id number] Access Code: [email or web address] URL: [email or web address] Date: 11-20-2023 Prepared By: Андрей Mon Program Notes Exercises - Supine Bridge - 1 x daily - 5 x weekly - 2-3 sets - 10 reps - Supine Active Straight Leg Raise - 1 x daily - 5 x weekly - 2-3 sets - 10 reps - Sidelying Hip Abduction - 1 x daily - 5 x weekly - 2-3 sets - 10 reps - Sit to Stand - 1 x daily - 5 x weekly - 2-3 sets - 10 reps - Standing Single Leg Stance with Unilateral Counter Support - 2-3 x daily - 5 x weekly - 1 sets - 5 reps - Standing Tandem Balance with Unilateral Counter Support - 2 x daily - 5 x weekly - 1 sets - 3 reps Images from the original note were not included. Episode Visit Count: 1 Therapist That Will Accept/Oversee The Plan Of Care: Alexsander Mon Start of Care Date: 11/20/23 Onset Date: 10/29/23 Plan of Care Certification Date: 11/20/23 Next Certification Due Date: 02/18/24 Patient Identified by Name and Date of : Yes REHABILITATION AND SPORTS THERAPY PHYSICAL THERAPY EVALUATION PLAN OF CARE: Assessment: Adina David presents with chief complaint of balance that interferes with walking, physical activities, cooking, cleaning . He presents with impairments in balance, gait, independence in exercise, and strength. PROMIS (Patient-Reported Outcomes Measurement Information System) scores were reviewed and identified as a rehabilitation concern. Prognosis for therapy is Good due to: current objective clinical presentation . He will benefit from skilled therapy services to meet the goals established for this plan of care as noted below. Goals for Episode of Care: created on 11/20/23 through 01/15/24 Patient reported outcome of pain Interference will decrease T -score by a minimum of 5 points. [place] in home exercise program. Patient will demonstrate increase in hip strength to 4+/5 during manual muscle testing in order to improve function for prior functional tasks. Patient will Improve Timed Up and Go to <15 seconds to demonstrate decreased risk of falling. Patient will ascend and descend with rail with modified independence and safe technique demonstrating step over step pattern. Improve five time sit to stand by 2.3 seconds to meet MCID and decrease risk of falls. Improve DGI score to > or = to19/24 to decrease risk of falls based on MDC . Planned Interventions, Frequency, and Duration: Current Frequency: 1x/week Duration: 8 weeks Total Number of Visits Planned: 8 Planned Treatment Interventions: Therapeutic exercise (76858), Neuromuscular re-education (31246), Therapeutic activities (91848), Gait Training (36575), Patient/Family/Caregiver Education PLAN FOR NEXT VISIT: Strength, Balance Patient demonstrates good understanding of plan of care and treatment. The above goals and plan of care were discussed and agreed upon by patient/family. SUBJECTIVE: Having right ear issues since 10/16/23. Originally dx w/ mastoiditis. Went to ER 10/28 and admitted w/ TIA. Functional Limitations: walking, physical activities, cooking, cleaning Prior Level of Function: Independent without limitations Relevant History Past Relevant Medical Conditions: Cancer, Hypertension, Falls, Blood Disorders, Covid, Neuropathy Home Environment Patient Lives With: Self/Alone Intake Information: Prescription present Previous Treatment: None Pain: PROMIS Scales 07/17/2023 06/05/2023 05/31/2022 Higher is Better Phys Func - Score 39 (moderate dysfunction) 38 (moderate dysfunction) 34 (moderate dysfunction) Phys Func - Percentile 14 12 5 Self-Eff Symptom - Score 41 (Average) 45 (Average) 35 (Low) Self-Eff Symptom - Percentile 18 31 7 T-scores: mean of general population = 50. 5 points is clinically meaningfully difference Percentiles provide an indication of how the patient's score ranks in relation to the general population. Higher percentile rankings indicate better function/quality of life. 50th percentile is the average of the general population and indicates half of respondents had a worse score. OBJECTIVE MEASURES WITH LEVEL OF FUNCTION: LE Strength R Hip Extension: 4/5 R Hip Flexion (L2): 4+/5 R Hip ABduction: 3+/5 L Hip Extension: 3-/5 L Hip Flexion (L2): 4+/5 L Hip ABduction: 4+/5 Gait Gait: Independent Gait Device: None Gait Deviations: General Deviations General Deviations/Observations: Lateral sway increased, Difficulty changing direction/turning, Step length decreased Stairs: Modified Independent Stairs: Step to w/ rail Functional Performance Test Results Assistive Device: None 10 Meter Walk Test Trial 1 (seconds): 8.9 10 Meter Walk Test Average (m/sec): 0.67 30 Second Chair Stand Test: 7 reps 5 Times Sit to Stand Test : 23 sec Timed Up and Go (sec): 14.6 sec Dynamic Gait Index Gait level surface : 2 - Mild impairment- walks 20' uses assist device, slower speed, mild gait deviation Change in gait speed: 2 - Mild impairment- is able to change speed but demonstrates mild gait deviations or no gait deviations but unable to achieve a significant change in velocity, or uses an assistive device Gait and horizontal head turns: 3 - Normal- performs R/L head turns smoothly with no change in gait Gait and vertical head turns: 3 - Normal- performs up/down head turns smoothly with no change in gait Gait and pivot: 3 - Normal- pivot turn safely within 3 sec, stops quickly, no loss of balance Step over obstacle: 1 - Moderate impairment- is able to step over box, but must stop then step over, may require verbal cueing Step around obstacle: 2 - Mild impairment- able to step around both cones, must slow down and adjust steps to clear cones Steps: 1 - Moderate impairment- 2 feet to a stair, must use rail Dynamic Gait Index Total: 17 Unilateral Stance Time R Unilateral Stance Time (sec): 2 sec L Unilateral Stance Time (sec): 2 sec Education: Education Learning Preferences: Printed Materials Barriers: None Learning/educational needs: Home exercise program, Plan of Care Education Provided: Yes, see treatment interventions for education provided Education Provided To: Patient Education Mode/Type: Demonstration, Explanation/Discussion, Literature/Printed Materials, Performance Response to Education/Teach Back: Requires Review/Additional Education TREATMENT: PT Treatment Interventions: Therapeutic Exercise Evaluation Therapeutic Exercise: 1: Provided and reviewed HEP* Access Code: [email or web address] URL: [email or web address] Date: 11/20/2023 Prepared by: Андрей Mon Exercises - Supine Bridge - 1 x daily - 5 x weekly - 2-3 sets - 10 reps - Supine Active Straight Leg Raise - 1 x daily - 5 x weekly - 2-3 sets - 10 reps - Sidelying Hip Abduction - 1 x daily - 5 x weekly - 2-3 sets - 10 reps - Sit to Stand - 1 x daily - 5 x weekly - 2-3 sets - 10 reps - Standing Single Leg Stance with Unilateral Counter Support - 2-3 x daily - 5 x weekly - 1 sets - 5 reps - 15 hold - Standing Tandem Balance with Unilateral Counter Support - 2 x daily - 5 x weekly - 1 sets - 3 reps - 30 hold Skilled Intervention: Patient was educated in proper exercise technique and purpose for exercises. Reviewed and educated patient on additions/changes for home exercise program as above (*). Skilled judgment was used in selection of appropriate interventions. Provided written instruction for home exercise program to facilitate proper performance and compliance. Billing * Evaluation Moderate Complexity: 1 Unit Therapeutic Exercise Treatment Minutes: 10 Skilled Treatment Time Minutes (timed and untimed codes): 45 Total Session Time (minutes): 45 Session Start Time : 1802 Session Stop Time : 1846 Андрей Mon PT documented in this encounter [facility] 11-12-2023 Instructions Hortencia Gallardo MD - 11/12/2023 11:26 AM EDT Magnesium supplement that doesn't cause diarrhea [email or web address] Phosphorus/[email or web address] D supplement [email or web address] documented in this encounter [facility] 11-12-2023 History of Present illness Narrative SMALL BOWEL DISEASES AND NUTRITION FOLLOW-UP VISIT Date of direct communication: 11/12/2023 ========= Assessment IMPRESSION: Adina David is a 66 year old male with 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 Also with: CLL on hydroxyurea; CAD s/p PTCA; CKD s/p R nephrectomy; GERD. DIAGNOSTIC ISSUES AND PLAN: #) Cecal and ascending colon AVM's #) Iron def anemia -Continue to monitor CBC and iron indices -Replace iron with IV/po iron as needed to maintain stores -If not effective, repeat colonoscopy with APC. Try to get RFA paddle (currently back ordered) for a more durable treatment. #) DVT #) On anticoagulation -Continues on Eliquis with IVC filter -No bleeding exacerbation at this time #) CLL -Leukocytosis and thrombocytosis -Per Dr Dale, CLL is not contributing to anemia at this time #) Hypomagnesemia #) Hypophosphatemia #) Hypocalcemia -A lot of Mg and phos supplements are cathartic and cause diarrhea -Will folllow up levels and use MgPlus Protein and Forbones Xtra for supplements that are going to be better tolerated from a GI perspective FOLLOW-UP: 3 months Hortencia Gallardo MD 11/12/2023 [employer] Line [employer] [facility] [place] ========= PRIMARY PROBLEM: iron def anemia, small bowel AVM's INTERVAL HISTORY: -Last seen -Ongoing iron deficiency anemia, ferritin 18 Hgb 9.5 last month -Received 3 iron infusions since then -No kori blood in the stool -Currently admitted to [facility] - Hgb 9.7 currently -Had pneumonia a few weeks ago, speech difficulties with TIA and expressive aphasia -They think the TIA was related to low Mg 0.3 off mag oxide, phos low too, calcium levels -Had another DVT s/p IVC placement, on Xarelto 10mg -Has had some diarrhea the whole time, on antibiotics currently Weight history: 11-12-2023 181-192 lbs Last Wt 12/18/22 : 81.6 kg (179 lb 14.4 oz) 12/10/22 : 81.1 kg (178 lb 11.2 oz) 11/26/22 : 84 kg (185 lb 3.2 oz) 11/21/22 : 84.4 kg (186 lb) 11/19/22 : 84.5 kg (186 lb 3.2 oz) CURRENT MEDICATIONS: Current Outpatient Medications Medication Sig Dispense Refill REPATHA SURECLICK 140 mg/mL pen injector INJECT 1 DOSE SUBCUTANEOUSLY ONCE EVERY MONTH 2 mL 0 bncctnkyrcc-ipnfmhzvd-whasvqyt (TRELEGY ELLIPTA) 100-62.5-25 mcg inhalation powder Inhale 1 Puff as instructed once daily. (Patient not taking: Reported on 12/13/2022) 30 Each 1 metoprolol tartrate, short acting, (LOPRESSOR) 25 mg tablet Take half a tablet by mouth twice daily. 30 tablet 1 enoxaparin (LOVENOX) 40 mg/0.4 mL Inject 0.4 mL subcutaneously every 24 hours. 12 mL 0 hydroxyurea (HYDREA) 500 mg capsule Take 2 capsules by mouth once daily. 60 capsule 0 sodium bicarbonate 650 mg tablet Take 1 tablet by mouth twice daily. 60 tablet 1 roflumilast (DALIRESP) 500 mcg tab Take 1 tablet by mouth every afternoon. omeprazole (PRILOSEC) 40 mg capsule Take 1 capsule by mouth once daily 90 capsule 3 zolpidem (AMBIEN) 5 mg tablet Take 1 tablet by mouth at bedtime as needed for up to 90 days. 30 tablet 2 magnesium oxide (MAG-OX) 400 mg (241.3 mg magnesium) tablet Take 0.5 tablets by mouth once daily. 0.5 tablet 90 tablet 3 CPAP (Patient not taking: Reported on 12/13/2022) BABY ASPIRIN ORAL Take 81 mg by mouth once daily. ergocalciferol 50,000 unit capsule (VITAMIN D2, DRISDOL) once every month. No current facility-administered medications for this visit. ALLERGIES: ALLERGIES Allergen Reactions Doxycycline Intolerance Rash, diarrhea Penicillin Hives Penicillin V Potass* Other: See Comments PAST MEDICAL/SURGICAL HISTORY, SOCIAL HISTORY, AND FAMILY HISTORY: Reviewed and is unchanged aside from the changes documented in HPI. REVIEW OF SYSTEMS: ROS completed and negative outside of the systems documented in the HPI. INVESTIGATIONS: All available pertinent interval investigations were reviewed and were notable for: Labs : WBC 47.2 Hgb 9.5 Plt 373 Iron 69 TIBC 413 16% Fe sat'n Ferritin 18 Labs : WBC 41.1 Hgb 9.9 MCV 125 RDW 18 Plt 463 Na 134, K 3.6, Cl 100, CO2 17, glucose 128, BUN 20, Creat 1.8, Ca 8.6, AG 17 Total protein 6.1, albumin 3.7, calcium 8.6, total bili 0.6, alk phos 96, AST 11, ALT 12, direct bili <0.2, lactic acid 1.8 Colonoscopy : Impression: - A single (solitary) ulcer in the terminal ileum. Clip (MR conditional) was placed. - Diverticulosis in the sigmoid colon, in the transverse colon and in the ascending colon. - Multiple recently bleeding colonic angiodysplastic lesions. Treated with argon plasma coagulation (APC). - One 2 mm polyp in the cecum. - Internal hemorrhoids. - The examination was otherwise normal on direct and retroflexion views. - No specimens collected. Recommendation: - Repeat colonoscopy PRN for retreatment. - Resume previous diet. - Continue present medications. - Resume Eliquis (apixaban) at prior dose. Refer to managing physician for further adjustment of therapy. Oral DBE : Impression: - Extensive diverticulae from the duodenum through to the mid-ileum. No high risk bleeding stigmata visualized. - A single recently bleeding angioectasia in the jejunum. Treated with argon plasma coagulation (APC). - The examined portion of the ileum was normal. - An area in the proximal ileum was tattooed near the point of maximal scope insertion. - Overall impression is that the cecal AVM's are the primary source of blood loss in comparison to small bowel findings. - No additional small bowel aphthous ulcers were seen on this oral double balloon enteroscopy. - No specimens collected. Recommendation: - Resume previous diet. - Resume Eliquis (apixaban) at prior dose. Refer to managing physician for further adjustment of therapy. - Patient has a contact number available for emergencies. The signs and symptoms of potential delayed complications were discussed with the patient. Return to normal activities tomorrow. Written discharge instructions were provided to the patient. - Perform a colonoscopy if iron deficiency does not correct after today's procedures to re-assess and re-treat the cecal AVM's. - Would also consider a lower device-assisted enteroscopy to evaluate the remainder of his small bowel given the finding of a single aphthous ulcer on today's exam. I favor this approach over another attempt at capsule endoscopy because the extensive jejunal diverticulosis is the reason for prolonged capsule retention on previous studies. Capsule study 2019: 1st gastric image:00 00 01 1st duodenal image: 17 36 1st cecal image:does not reach the cecum in 13 hours and 19 minutes GET:00 17 00 SBTT:n/a TTT: Prep: Fair Gastric images are limited. Small bowel: There is a large duodenal diverticulum. The capsule stays within the diverticulum for over 11 hours before exiting and moving distally. As it leaves the diverticulum, there is a small amount of fresh red blood, but I suspect this may be due to mucosal trauma related to the capsule passage. The visualized jejunum and ileum appear normal. However, the prep is somewhat poor at this point in the study. The capsule does not reach the cecum by the time image acquisition ceases. Impression: Duodenal diverticulum. Incomplete small bowel video capsule endoscopy. Video Capsule endoscopy 05-08-2021 First gastric image: 00:02:11 First Duodenal image: 00:33:46 First Cecal image: 05:55:52 Multiple AVMs and active oozing/bleeding noted in duodenum/jejunum areas. AVM also noted in distal small bowel with specs of blood floating. Recommendation: Withhold Eliquis - has been withheld since yesterday after speaking with Dr Marrero (Hospitalist). Plan for Push enteroscopy in the OR tomorrow. EGD and colonoscopy 2019: Both normal PHYSICAL EXAM: Limited with video visit. General: Appears healthy and well developed, in the hospital Total time spent on this patient encounter today was >35 mins including: preparation for the visit, review and interpretation of records, direct discussion with the patient, physical examination, documentation, and co-ordination of care. I have communicated my name and active licensure. The patient's identity and physical location were verified at the time of this visit. Either the patient or their legal artist's representative has been informed of the risks and benefits of -- and alternatives to -- treatment through a remote evaluation and consents to proceed with the evaluation remotely. Patient consented to video visit. documented in this encounter [facility] 11-12-2023 Note HNO ID: [id number] Author: HORTENCIA GALLARDO MD Service: ? Author Type: Physician Type: Progress Notes Filed: 11/12/2023 12:13 Note Text: SMALL BOWEL DISEASES AND NUTRITION FOLLOW-UP VISIT Date of direct communication: 11/12/2023 ========= Assessment IMPRESSION: Adina David is a 66 year old male with 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 Also with: CLL on hydroxyurea; CAD s/p PTCA; CKD s/p R nephrectomy; GERD. DIAGNOSTIC ISSUES AND PLAN: #) Cecal and ascending colon AVM's #) Iron def anemia -Continue to monitor CBC and iron indices -Replace iron with IV/po iron as needed to maintain stores -If not effective, repeat colonoscopy with APC. Try to get RFA paddle (currently back ordered) for a more durable treatment. #) DVT #) On anticoagulation -Continues on Eliquis with IVC filter -No bleeding exacerbation at this time #) CLL -Leukocytosis and thrombocytosis -Per Dr Dale, CLL is not contributing to anemia at this time #) Hypomagnesemia #) Hypophosphatemia #) Hypocalcemia -A lot of Mg and phos supplements are cathartic and cause diarrhea -Will folllow up levels and use MgPlus Protein and Forbones Xtra for supplements that are going to be better tolerated from a GI perspective FOLLOW-UP: 3 months Hortencia Gallardo MD 11/12/2023 Staff Line Prep [facility], [facility] [place] ========= PRIMARY PROBLEM: iron def anemia, small bowel AVM's INTERVAL HISTORY: -Last seen -Ongoing iron deficiency anemia, ferritin 18 Hgb 9.5 last month -Received 3 iron infusions since then -No kori blood in the stool -Currently admitted to [facility] - Hgb 9.7 currently -Had pneumonia a few weeks ago, speech difficulties with TIA and expressive aphasia -They think the TIA was related to low Mg 0.3 off mag oxide, phos low too, calcium levels -Had another DVT s/p IVC placement, on Xarelto 10mg -Has had some diarrhea the whole time, on antibiotics currently Weight history: 11-12-2023 181-192 lbs Last Wt 12/18/22 : 81.6 kg (179 lb 14.4 oz) 12/10/22 : 81.1 kg (178 lb 11.2 oz) 11/26/22 : 84 kg (185 lb 3.2 oz) 11/21/22 : 84.4 kg (186 lb) 11/19/22 : 84.5 kg (186 lb 3.2 oz) CURRENT MEDICATIONS: Current Outpatient Medications Medication Sig Dispense Refill REPATHA SURECLICK 140 mg/mL pen injector INJECT 1 DOSE SUBCUTANEOUSLY ONCE EVERY MONTH 2 mL 0 gswwcklwduj-rbzmqmnsn-gxmzhsev (TRELEGY ELLIPTA) 100-62.5-25 mcg inhalation powder Inhale 1 Puff as instructed once daily. (Patient not taking: Reported on 12/13/2022) 30 Each 1 metoprolol tartrate, short acting, (LOPRESSOR) 25 mg tablet Take half a tablet by mouth twice daily. 30 tablet 1 enoxaparin (LOVENOX) 40 mg/0.4 mL Inject 0.4 mL subcutaneously every 24 hours. 12 mL 0 hydroxyurea (HYDREA) 500 mg capsule Take 2 capsules by mouth once daily. 60 capsule 0 sodium bicarbonate 650 mg tablet Take 1 tablet by mouth twice daily. 60 tablet 1 roflumilast (DALIRESP) 500 mcg tab Take 1 tablet by mouth every afternoon. omeprazole (PRILOSEC) 40 mg capsule Take 1 capsule by mouth once daily 90 capsule 3 zolpidem (AMBIEN) 5 mg tablet Take 1 tablet by mouth at bedtime as needed for up to 90 days. 30 tablet 2 magnesium oxide (MAG-OX) 400 mg (241.3 mg magnesium) tablet Take 0.5 tablets by mouth once daily. 0.5 tablet 90 tablet 3 CPAP (Patient not taking: Reported on 12/13/2022) BABY ASPIRIN ORAL Take 81 mg by mouth once daily. ergocalciferol 50,000 unit capsule (VITAMIN D2, DRISDOL) once every month. No current facility-administered medications for this visit. ALLERGIES: ALLERGIES Allergen Reactions Doxycycline Intolerance Rash, diarrhea Penicillin Hives Penicillin V Potass* Other: See Comments PAST MEDICAL/SURGICAL HISTORY, SOCIAL HISTORY, AND FAMILY HISTORY: Reviewed and is unchanged aside from the changes documented in HPI. REVIEW OF SYSTEMS: ROS completed and negative outside of the systems documented in the HPI. INVESTIGATIONS: All available pertinent interval investigations were reviewed and were notable for: Labs : WBC 47.2 Hgb 9.5 Plt 373 Iron 69 TIBC 413 16% Fe sat'n Ferritin 18 Labs : WBC 41.1 Hgb 9.9 MCV 125 RDW 18 Plt 463 Na 134, K 3.6, Cl 100, CO2 17, glucose 128, BUN 20, Creat 1.8, Ca 8.6, AG 17 Total protein 6.1, albumin 3.7, calcium 8.6, total bili 0.6, alk phos 96, AST 11, ALT 12, direct bili <0.2, lactic acid 1.8 Colonoscopy : Impression: - A single (solitary) ulcer in the terminal ileum. Clip (MR conditional) was placed. - Diverticulosis in the sigmoid colon, in the transverse colon and in the ascending colon. - Multiple recently bleeding colonic angiodysplastic lesions. Treated with argon plasma coagulation (APC). - One 2 mm polyp in the cecum. - Internal hemorrhoids. - The examination was ot (more content not included)... [facility] 10-28-2023 Note HNO ID: [id number] Author: WILTON PALMA RN Service: ? Author Type: Registered Nurse Type: Progress Notes Filed: 10/28/2023 13:24 Note Text: CDM Telephonic Outreach Provider Action/FYI CDM: CKD Left a message to verify symptom status, instructed to contact PCP for condition changes and needs. Goals updated Contacted for: Routine Telephonic Outreach Contact made with patient: No, left message. Wilton Palma RN October 28, 2023 1:17 PM [facility] 10-28-2023 History of Present illness Narrative CDM Telephonic Outreach Provider Action/FYI CDM: CKD Left a message to verify symptom status, instructed to contact PCP for condition changes and needs. Goals updated Contacted for: Routine Telephonic Outreach Contact made with patient: No, left message. Wilton Palma RN October 28, 2023 1:17 PM CDM Telephonic Outreach Provider Action/FYI CDM: CKD Called Pt to verify symptoms and needs, line was busy, unable to leave a message, Mail box was full Contacted for: Routine Telephonic Outreach Contact made with patient: No, unable to leave message. Will reattempt call Wilton Palma RN October 27, 2023 11:32 AM CDM Telephonic Outreach Provider Action/FYI CDM: CKD Called Pt to verify symptoms and needs, line was busy, unable to leave a message, Mail box was full Goals updated Contacted for: Routine Telephonic Outreach Contact made with patient: No, unable to leave message. Will reattempt call Wilton Palma RN October 24, 2023 1:07 PM documented in this encounter [facility] 10-27-2023 Note HNO ID: [id number] Author: WILTON PALMA RN Service: ? Author Type: Registered Nurse Type: Progress Notes Filed: 10/28/2023 13:24 Note Text: CDM Telephonic Outreach Provider Action/FYI CDM: CKD Called Pt to verify symptoms and needs, line was busy, unable to leave a message, Mail box was full Contacted for: Routine Telephonic Outreach Contact made with patient: No, unable to leave message. Will reattempt call Wilton Palma RN October 27, 2023 11:32 AM [facility] 10-24-2023 Note HNO ID: [id number] Author: WILTON PALMA RN Service: ? Author Type: Registered Nurse Type: Progress Notes Filed: 10/28/2023 13:24 Note Text: CDM Telephonic Outreach Provider Action/FYI CDM: CKD Called Pt to verify symptoms and needs, line was busy, unable to leave a message, Mail box was full Goals updated Contacted for: Routine Telephonic Outreach Contact made with patient: No, unable to leave message. Will reattempt call Wilton Palma RN October 24, 2023 1:07 PM [facility] 10-24-2023 Note Patient Outreach (AM [facility]) FRANKIEADINA ([id number]) 1955 M Date Time Provider Department 10/24/23 WILTON PALMA [facility] During your visit today, we recorded the following information about you: Wilton Palma RN 10/28/2023 1:24 PM Signed CDM Telephonic Outreach Provider Action/FYI CDM: CKD Called Pt to verify symptoms and needs, line was busy, unable to leave a message, Mail box was full Goals updated Contacted for: Routine Telephonic Outreach Contact made with patient: No, unable to leave message. Will reattempt call Wilton Palma RN October 24, 2023 1:07 PM Wilton Palma RN 10/28/2023 1:24 PM Signed CDM Telephonic Outreach Provider Action/FYI CDM: CKD Called Pt to verify symptoms and needs, line was busy, unable to leave a message, Mail box was full Contacted for: Routine Telephonic Outreach Contact made with patient: No, unable to leave message. Will reattempt call Wilton Palma RN October 27, 2023 11:32 AM Wilton Palma RN 10/28/2023 1:24 PM Signed CDM Telephonic Outreach Provider Action/FYI CDM: CKD Left a message to verify symptom status, instructed to contact PCP for condition changes and needs. Goals updated Contacted for: Routine Telephonic Outreach Contact made with patient: No, left message. Wilton Palma RN October 28, 2023 1:17 PM Allergies As of Date: 10/24/2023 Noted Allergy Reaction DOXYCYCLINE 07/17/2021 5 - Intolerance Comments: Rash, diarrhea PENICILLIN 02/22/2017 4 - Hives PENICILLIN V POTASSIUM 12/20/2021 14 - Other: See Comments Date Reviewed: 12/19/2022 Reviewed by: Halle Dale MD - Fully Assessed Reason for Visit: Community Monitoring Outreach [Other] Prescriptions as of 10/28/2023 - REPATHA SURECLICK 140 mg/mL pen injector INJECT 1 DOSE SUBCUTANEOUSLY ONCE EVERY MONTH - yigfqgvmmfl-qlpxnfydw-lnookrsi (TRELEGY ELLIPTA) 100-62.5-25 mcg inhalation powder Inhale 1 Puff as instructed once daily. - metoprolol tartrate, short acting, (LOPRESSOR) 25 mg tablet Take half a tablet by mouth twice daily. - enoxaparin (LOVENOX) 40 mg/0.4 mL Inject 0.4 mL subcutaneously every 24 hours. - hydroxyurea (HYDREA) 500 mg capsule Take 2 capsules by mouth once daily. - sodium bicarbonate 650 mg tablet Take 1 tablet by mouth twice daily. - roflumilast (DALIRESP) 500 mcg tab Take 1 tablet by mouth every afternoon. - omeprazole (PRILOSEC) 40 mg capsule Take 1 capsule by mouth once daily - zolpidem (AMBIEN) 5 mg tablet Take 1 tablet by mouth at bedtime as needed for up to 90 days. - magnesium oxide (MAG-OX) 400 mg (241.3 mg magnesium) tablet Take 0.5 tablets by mouth once daily. 0.5 tablet - CPAP - BABY ASPIRIN ORAL Take 81 mg by mouth once daily. - ergocalciferol 50,000 unit capsule (VITAMIN D2, DRISDOL) once every month. Problem List As Of Date 10/24/2023 Noted Resolved Multiple lipomas [D17.9] GERD (gastroesophageal reflux disease) [K21.9] H/O resection of large bowel [Z90.49] 04/14/2004 Essential hypertension [I10] Renal cancer, right (HCC) [C64.1] 04/29/2017 CLL (chronic lymphocytic leukemia) (HCC) [C91.1*06/13/2017 Iron deficiency anemia [D50.9] 06/13/2017 Iron adverse reaction [T45.4X5A] 10/24/2017 Frequency of urination [R35.0] 03/19/2018 02/11/2019 Nocturia [R35.1] 03/19/2018 BPH (benign prostatic hyperplasia) [N40.0] 10/05/2018 History of right nephrectomy [Z90.5] 10/05/2018 NSTEMI (non-ST elevated myocardial infarction) *10/24/2018 Stage 2 chronic kidney disease [N18.2] 11/10/2018 Post PTCA [Z98.61] 11/25/2018 S/P drug eluting coronary stent placement [Z95.*11/25/2018 GI bleed [K92.2] 12/31/2018 01/11/2019 Hypertriglyceridemia [E78.1] 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.* 01/11/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] DENG (acute kidney injury) (HCC) [N17.9] 01/07/2019 Facial numbness [R20.0] 03/31/2019 04/03/2019 Leukocytosis [D72.829] 03/31/2019 Essential thrombocythemia (HCC) [D47.3] 03/31/2019 CKD (chronic kidney disease) stage 3, GFR 30-59*03/31/2019 Closed left subtrochanteric femur fracture (HCC*07/22/2020 07/27/2020 Deep vein thrombosis (DVT) of femoral vein of l*03/14/2021 Leg swelling [M79.89] 03/14/2021 CIRA on CPAP [G47.33] 05/01/2021 Severe anemia [D64.9] 05/02/2021 Severe protein-calorie malnutrition (HCC) [E43] 05/09/2021 Acute blood loss anemia [D62] 05/16/2021 COVID-19 virus infection [U07.1] 05/16/2021 Obesity, Class I, BMI 30-34.9 [E66.9] 05/28/2021 Vitamin D deficiency [E55.9] 07/17/2021 Iron deficiency anemia due to chronic blood los*02/19/2022 SOB (shortness of breath) [R06.02] 11/27/2022 Lightheadedness [R42] 11/27/2022 Pulmonary embolism, unspecified chronicity, uns*12/01/2022 Coronary artery disease involving [place]*12/02/2022 Other emphysema (HCC) [J43.8] 12/02/2022 Chronic deep vein thrombosis (DVT) of proximal *12/02/2022 AVM (a (more content not included)... [facility] 10-17-2023 History of Present illness Narrative Images from the original note were not included. Subjective: Patient: Adina David is a 67 y.o. male Patient presents to urgent care for complaints of right ear pain for the past 2 days. Patient has been dealing with nasal congestion, sinus pressure, productive cough and chest congestion for the past few weeks. States that he was diagnosed with pneumonia 2-1/2 weeks ago and finished course of Levaquin. He had symptom improvement, but productive cough did not completely resolved. States that he continues to have productive cough with green mucus. States that he has some shortness of breath and wheezing at baseline. Denies any increased shortness of breath, but he continues to have wheezing. He has not been using inhalers at home. Denies any fever/chills or bodyaches. Patient does have a history of leukemia as well. He had a vena cava filter placed 4 days ago due to DVT in lower extremity. Denies any complications from filter placement. Denies any neck swelling or neck pain. Review of Systems Constitutional: Negative for activity change, chills, fatigue and fever. HENT: Positive for congestion (nasal and chest), ear pain (right), postnasal drip and rhinorrhea. Negative for ear discharge, facial swelling, sinus pressure, sinus pain, sore throat, trouble swallowing and voice change. Eyes: Negative for discharge. Respiratory: Positive for cough, shortness of breath (at baseline, see HPI) and wheezing (intermittent, see HPI). Negative for chest tightness. Cardiovascular: Negative for chest pain. Gastrointestinal: Negative for abdominal pain, diarrhea, nausea and vomiting. Musculoskeletal: Negative for myalgias. Skin: Negative for color change, pallor, rash and wound. Allergic/Immunologic: Negative for environmental allergies, food allergies and immunocompromised state. Neurological: Negative for dizziness, weakness, light-headedness and headaches. Allergies Allergen Reactions Doxycycline Other Rash, diarrhea Levofloxacin Unknown Penicillins Hives, Other and Unknown unknown Current Outpatient Medications on File Prior to Visit Medication Sig Dispense Refill albuterol 108 (90 Base) MCG/ACT inhaler INHALE 2 PUFFS BY MOUTH EVERY 4 HOURS Ambien 10 MG tablet Take 1 tablet by mouth daily at bedtime. calcium carbonate (Os-Kentrell) 600 MG tablet Take 1 tablet by mouth in the morning and 1 tablet in the evening. Take before meals. calcium carbonate (Tums) 500 MG chewable tablet Chew 1 tablet daily. ergocalciferol (Vitamin D2) 1.25 MG (35961 UT) capsule TAKE 1 CAPSULE BY MOUTH ONCE EVERY MONTH escitalopram (Lexapro) 5 MG tablet Take 1 tablet by mouth daily. evolocumab (Repatha) 140 MG/ML injection in leg Subcutaneous once a month ferrous sulfate, as mg of FE, (Donavan-In-Marianela) 75 (15 Fe) MG/ML drops Take 15 mg by mouth daily. fluticasone (Flonase) 50 MCG/ACT nasal spray 1 sprays Nasally Two times per day for 30 days hydroxyurea (Hydrea) 500 MG capsule Take 1,000 mg by mouth in the morning. Krill Oil 1000 MG capsule Take by mouth daily. magnesium oxide (Mag-Ox) 400 MG tablet Take 1 tablet by mouth daily. metoprolol tartrate (Lopressor) 100 MG tablet Take 1.5 tablets twice a day by oral route. metoprolol tartrate (Lopressor) 25 MG tablet Take 12.5 mg by mouth in the morning and 12.5 mg in the evening. omeprazole (PriLOSEC) [address] capsule Take 20 mg by mouth daily. rivaroxaban (Xarelto) 10 MG tablet Take 1 tablet by mouth daily. Trelegy Ellipta 100-62.5-25 MCG/ACT aerosol powder Inhale 1 puff daily. No current facility-administered medications on file prior to visit. Past Medical History: Diagnosis Date Cancer (CMS/HCC) (HCC) 05/2017 kidney Right COPD (chronic obstructive pulmonary disease) (HCC) Diverticulitis Fractures back,left shoulder Heartburn Hemorrhoid High cholesterol High triglycerides Hypertension Social History Tobacco Use Smoking status: Former Smokeless tobacco: Never Tobacco comments: Quit smoking: quit 1980 Substance Use Topics Alcohol use: Yes Alcohol/week: 0.0 standard drinks of alcohol Objective: BP 124/86 Pulse 89 Temp 36.6 C (97.8 F) (Temporal) SpO2 96% Physical Exam Vitals and nursing note reviewed. Constitutional: General: He is not in acute distress. Appearance: Normal appearance. He is not ill-appearing or toxic-appearing. HENT: Head: Normocephalic. Right Ear: Ear canal and external ear normal. No drainage, swelling or tenderness. There is no impacted cerumen. Tympanic membrane is erythematous. Tympanic membrane is not perforated. Left Ear: Tympanic membrane, ear canal and external ear normal. No drainage, swelling or tenderness. There is no impacted cerumen. Tympanic membrane is not perforated or erythematous. Nose: Congestion and rhinorrhea present. Right Sinus: No maxillary sinus tenderness or frontal sinus tenderness. Left Sinus: No maxillary sinus tenderness or frontal sinus tenderness. Mouth/Throat: Mouth: Mucous membranes are moist. Pharynx: Uvula midline. No pharyngeal swelling, oropharyngeal exudate, posterior oropharyngeal erythema or uvula swelling. Tonsils: No tonsillar exudate or tonsillar abscesses. 1+ on the right. 1+ on the left. Comments: Patent airway. Swallowing without difficulty. Managing secretions. No trismus. No muffled voice. Clear PND noted. Neck: Cardiovascular: Rate and Rhythm: Normal rate and regular rhythm. Heart sounds: Normal heart sounds. No murmur heard. Pulmonary: Effort: Pulmonary effort is normal. No respiratory distress. Breath sounds: Wheezing (Wheezing throughout) present. Comments: Respirations even and unlabored. Patient speaking complete sentences without difficulty. Moist cough throughout visit. No accessory muscle use. Skin: General: Skin is warm and dry. Neurological: Mental Status: He is alert and oriented to person, place, and time. Gait: Gait normal. Psychiatric: Mood and Affect: Mood normal. Behavior: Behavior normal. Thought Content: Thought content normal. Judgment: Judgment normal. Assessment 1. Other non-recurrent acute nonsuppurative otitis media of right ear 2. Wheezing 3. Acute cough Plan Diagnoses and all orders for this visit: Other non-recurrent acute nonsuppurative otitis media of right ear - azithromycin (Zithromax Z-Mario) 250 MG tablet; Take 500 mg on day 1. Take 250 mg on days 2 through 5. Take as directed Wheezing Acute cough Right otitis media noted on exam. Patient continues to have productive cough and wheezing on exam. I recommended that he proceed to ER for further evaluation. Discussed that since he is not improving with oral antibiotics, he would likely benefit from IV antibiotics for pneumonia and further imaging. Patient declines ER visit at this time. States that he would like to wait until Friday to see if symptoms are improving. If not, he will call primary care provider for appointment and further instruction. I again recommended ER visit due to his wheezing on exam and continued productive cough. He continues to decline ER visit. Discussed that he could suffer from worsening condition without further evaluation/treatment. Patient verbalized understanding. I did recommend that he use inhalers at home as prescribed. Will treat for ear infection at this time. Will start azithromycin. Denies allergy to azithromycin. Educated on symptoms that warrant prompt ER visit such as increased/changing shortness of breath, increased wheezing, worsening cough, high fever, weakness, or any new/worsening symptoms. Vital signs stable, afebrile. Patient in no acute distress. Respirations even and unlabored. Patient educated on plan of care and verbalized understanding. LARS Parson CNP 10/17/23 1:19 PM If symptoms do not improve, worsen, or new symptoms develop, see PCP for further evaluation. documented in this encounter [facility] 09-24-2023 History of Present illness Narrative Patient was no-show for scheduled visit, sent links x2 and called to leave . He may reschedule his appointment. The following note was initiated in anticipation of his clinic visit. SMALL BOWEL DISEASES AND NUTRITION FOLLOW-UP VISIT Date of direct communication: 09/24/2023 ========= Assessment IMPRESSION: Adina David is a 66 year old male with 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 Also with: CLL on hydroxyurea; CAD s/p PTCA; CKD s/p R nephrectomy; GERD. DIAGNOSTIC ISSUES AND PLAN: #) Cecal and ascending colon AVM's -Oral iron and B complex supplements if OK with Dr Dale -If not effective, repeat colonoscopy with APC. Try to get RFA paddle for a more durable treatment. #) DVT #) On anticoagulation -Continues on Eliquis #) CLL -Leukocytosis and thrombocytosis -Per Dr Dale, CLL is not contributing to anemia at this time FOLLOW-UP: Hortencia Gallardo MD 09/24/2023 Staff Line Prep Cook, [facility] [place] ========= PRIMARY PROBLEM: iron def anemia, small bowel AVM's INTERVAL HISTORY: -Last seen - Weight history: Last Wt 12/18/22 : 81.6 kg (179 lb 14.4 oz) 12/10/22 : 81.1 kg (178 lb 11.2 oz) 11/26/22 : 84 kg (185 lb 3.2 oz) 11/21/22 : 84.4 kg (186 lb) 11/19/22 : 84.5 kg (186 lb 3.2 oz) CURRENT MEDICATIONS: Current Outpatient Medications Medication Sig Dispense Refill REPATHA SURECLICK 140 mg/mL pen injector INJECT 1 DOSE SUBCUTANEOUSLY ONCE EVERY MONTH 2 mL 0 ftiihohkypt-lgwynrgvv-oyvozrql (TRELEGY ELLIPTA) 100-62.5-25 mcg inhalation powder Inhale 1 Puff as instructed once daily. (Patient not taking: Reported on 12/13/2022) 30 Each 1 metoprolol tartrate, short acting, (LOPRESSOR) 25 mg tablet Take half a tablet by mouth twice daily. 30 tablet 1 enoxaparin (LOVENOX) 40 mg/0.4 mL Inject 0.4 mL subcutaneously every 24 hours. 12 mL 0 hydroxyurea (HYDREA) 500 mg capsule Take 2 capsules by mouth once daily. 60 capsule 0 sodium bicarbonate 650 mg tablet Take 1 tablet by mouth twice daily. 60 tablet 1 roflumilast (DALIRESP) 500 mcg tab Take 1 tablet by mouth every afternoon. omeprazole (PRILOSEC) 40 mg capsule Take 1 capsule by mouth once daily 90 capsule 3 zolpidem (AMBIEN) 5 mg tablet Take 1 tablet by mouth at bedtime as needed for up to 90 days. 30 tablet 2 magnesium oxide (MAG-OX) 400 mg (241.3 mg magnesium) tablet Take 0.5 tablets by mouth once daily. 0.5 tablet 90 tablet 3 CPAP (Patient not taking: Reported on 12/13/2022) BABY ASPIRIN ORAL Take 81 mg by mouth once daily. ergocalciferol 50,000 unit capsule (VITAMIN D2, DRISDOL) once every month. No current facility-administered medications for this visit. ALLERGIES: ALLERGIES Allergen Reactions Doxycycline Intolerance Rash, diarrhea Penicillin Hives Penicillin V Potass* Other: See Comments PAST MEDICAL/SURGICAL HISTORY, SOCIAL HISTORY, AND FAMILY HISTORY: Reviewed and is unchanged aside from the changes documented in HPI. REVIEW OF SYSTEMS: ROS completed and negative outside of the systems documented in the HPI. INVESTIGATIONS: All available pertinent interval investigations were reviewed and were notable for: Labs : WBC 41.1 Hgb 9.9 MCV 125 RDW 18 Plt 463 Na 134, K 3.6, Cl 100, CO2 17, glucose 128, BUN 20, Creat 1.8, Ca 8.6, AG 17 Total protein 6.1, albumin 3.7, calcium 8.6, total bili 0.6, alk phos 96, AST 11, ALT 12, direct bili <0.2, lactic acid 1.8 Colonoscopy : Impression: - A single (solitary) ulcer in the terminal ileum. Clip (MR conditional) was placed. - Diverticulosis in the sigmoid colon, in the transverse colon and in the ascending colon. - Multiple recently bleeding colonic angiodysplastic lesions. Treated with argon plasma coagulation (APC). - One 2 mm polyp in the cecum. - Internal hemorrhoids. - The examination was otherwise normal on direct and retroflexion views. - No specimens collected. Recommendation: - Repeat colonoscopy PRN for retreatment. - Resume previous diet. - Continue present medications. - Resume Eliquis (apixaban) at prior dose. Refer to managing physician for further adjustment of therapy. Oral DBE : Impression: - Extensive diverticulae from the duodenum through to the mid-ileum. No high risk bleeding stigmata visualized. - A single recently bleeding angioectasia in the jejunum. Treated with argon plasma coagulation (APC). - The examined portion of the ileum was normal. - An area in the proximal ileum was tattooed near the point of maximal scope insertion. - Overall impression is that the cecal AVM's are the primary source of blood loss in comparison to small bowel findings. - No additional small bowel aphthous ulcers were seen on this oral double balloon enteroscopy. - No specimens collected. Recommendation: - Resume previous diet. - Resume Eliquis (apixaban) at prior dose. Refer to managing physician for further adjustment of therapy. - Patient has a contact number available for emergencies. The signs and symptoms of potential delayed complications were discussed with the patient. Return to normal activities tomorrow. Written discharge instructions were provided to the patient. - Perform a colonoscopy if iron deficiency does not correct after today's procedures to re-assess and re-treat the cecal AVM's. - Would also consider a lower device-assisted enteroscopy to evaluate the remainder of his small bowel given the finding of a single aphthous ulcer on today's exam. I favor this approach over another attempt at capsule endoscopy because the extensive jejunal diverticulosis is the reason for prolonged capsule retention on previous studies. Capsule study 2019: 1st gastric image: 00 04 14 duodenal image: 17 36 cecal image:does not reach the cecum in 13 hours and 19 minutes GET: 00 SBTT:n/a TTT:13 19 17 Prep: Fair Gastric images are limited. Small bowel: There is a large duodenal diverticulum. The capsule stays within the diverticulum for over 11 hours before exiting and moving distally. As it leaves the diverticulum, there is a small amount of fresh red blood, but I suspect this may be due to mucosal trauma related to the capsule passage. The visualized jejunum and ileum appear normal. However, the prep is somewhat poor at this point in the study. The capsule does not reach the cecum by the time image acquisition ceases. Impression: Duodenal diverticulum. Incomplete small bowel video capsule endoscopy. Video Capsule endoscopy 05-08-2021 First gastric image: 00:02:11 First Duodenal image: 00:33:46 First Cecal image: 05:55:52 Multiple AVMs and active oozing/bleeding noted in duodenum/jejunum areas. AVM also noted in distal small bowel with specs of blood floating. Recommendation: Withhold Eliquis - has been withheld since yesterday after speaking with Dr Marrero (Hospitalist). Plan for Push enteroscopy in the OR tomorrow. EGD and colonoscopy 2019: Both normal PHYSICAL EXAM: Limited with video visit. General: Total time spent on this patient encounter today was > mins including: preparation for the visit, review and interpretation of records, direct discussion with the patient, physical examination, documentation, and co-ordination of care. I have communicated my name and active licensure. The patient's identity and physical location were verified at the time of this visit. Either the patient or their legal artist's representative has been informed of the risks and benefits of -- and alternatives to -- treatment through a remote evaluation and consents to proceed with the evaluation remotely. Patient consented to video visit. documented in this encounter [facility] 09-24-2023 Note HNO ID: [id number] Author: HORTENCIA GALLARDO MD Service: ? Author Type: Physician Type: Progress Notes Filed: 09/24/2023 16:32 Note Text: Patient was no-show for scheduled visit, sent links x2 and called to leave . He may reschedule his appointment. The following note was initiated in anticipation of his clinic visit. SMALL BOWEL DISEASES AND NUTRITION FOLLOW-UP VISIT Date of direct communication: 09/24/2023 ========= Assessment IMPRESSION: Adina David is a 66 year old male with 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 Also with: CLL on hydroxyurea; CAD s/p PTCA; CKD s/p R nephrectomy; GERD. DIAGNOSTIC ISSUES AND PLAN: #) Cecal and ascending colon AVM's -Oral iron and B complex supplements if OK with Dr Dale -If not effective, repeat colonoscopy with APC. Try to get RFA paddle for a more durable treatment. #) DVT #) On anticoagulation -Continues on Eliquis #) CLL -Leukocytosis and thrombocytosis -Per Dr Dale, CLL is not contributing to anemia at this time FOLLOW-UP: Hortencia Gallardo MD 09/24/2023 Staff Line Prep [facility], [facility] [place] ========= PRIMARY PROBLEM: iron def anemia, small bowel AVM's INTERVAL HISTORY: -Last seen - Weight history: Last Wt 12/18/22 : 81.6 kg (179 lb 14.4 oz) 12/10/22 : 81.1 kg (178 lb 11.2 oz) 11/26/22 : 84 kg (185 lb 3.2 oz) 11/21/22 : 84.4 kg (186 lb) 11/19/22 : 84.5 kg (186 lb 3.2 oz) CURRENT MEDICATIONS: Current Outpatient Medications Medication Sig Dispense Refill REPATHA SURECLICK 140 mg/mL pen injector INJECT 1 DOSE SUBCUTANEOUSLY ONCE EVERY MONTH 2 mL 0 xkulnynifjc-aufjerfaq-zqcotfxi (TRELEGY ELLIPTA) 100-62.5-25 mcg inhalation powder Inhale 1 Puff as instructed once daily. (Patient not taking: Reported on 12/13/2022) 30 Each 1 metoprolol tartrate, short acting, (LOPRESSOR) 25 mg tablet Take half a tablet by mouth twice daily. 30 tablet 1 enoxaparin (LOVENOX) 40 mg/0.4 mL Inject 0.4 mL subcutaneously every 24 hours. 12 mL 0 hydroxyurea (HYDREA) 500 mg capsule Take 2 capsules by mouth once daily. 60 capsule 0 sodium bicarbonate 650 mg tablet Take 1 tablet by mouth twice daily. 60 tablet 1 roflumilast (DALIRESP) 500 mcg tab Take 1 tablet by mouth every afternoon. omeprazole (PRILOSEC) 40 mg capsule Take 1 capsule by mouth once daily 90 capsule 3 zolpidem (AMBIEN) 5 mg tablet Take 1 tablet by mouth at bedtime as needed for up to 90 days. 30 tablet 2 magnesium oxide (MAG-OX) 400 mg (241.3 mg magnesium) tablet Take 0.5 tablets by mouth once daily. 0.5 tablet 90 tablet 3 CPAP (Patient not taking: Reported on 12/13/2022) BABY ASPIRIN ORAL Take 81 mg by mouth once daily. ergocalciferol 50,000 unit capsule (VITAMIN D2, DRISDOL) once every month. No current facility-administered medications for this visit. ALLERGIES: ALLERGIES Allergen Reactions Doxycycline Intolerance Rash, diarrhea Penicillin Hives Penicillin V Potass* Other: See Comments PAST MEDICAL/SURGICAL HISTORY, SOCIAL HISTORY, AND FAMILY HISTORY: Reviewed and is unchanged aside from the changes documented in HPI. REVIEW OF SYSTEMS: ROS completed and negative outside of the systems documented in the HPI. INVESTIGATIONS: All available pertinent interval investigations were reviewed and were notable for: Labs : WBC 41.1 Hgb 9.9 MCV 125 RDW 18 Plt 463 Na 134, K 3.6, Cl 100, CO2 17, glucose 128, BUN 20, Creat 1.8, Ca 8.6, AG 17 Total protein 6.1, albumin 3.7, calcium 8.6, total bili 0.6, alk phos 96, AST 11, ALT 12, direct bili <0.2, lactic acid 1.8 Colonoscopy : Impression: - A single (solitary) ulcer in the terminal ileum. Clip (MR conditional) was placed. - Diverticulosis in the sigmoid colon, in the transverse colon and in the ascending colon. - Multiple recently bleeding colonic angiodysplastic lesions. Treated with argon plasma coagulation (APC). - One 2 mm polyp in the cecum. - Internal hemorrhoids. - The examination was otherwise normal on direct and retroflexion views. - No specimens collected. Recommendation: - Repeat colonoscopy PRN for retreatment. - Resume previous diet. - Continue present medications. - Resume Eliquis (apixaban) at prior dose. Refer to managing physician for further adjustment of therapy. Oral DBE : Impression: - Extensive diverticulae from the duodenum through to the mid-ileum. No high risk bleeding stigmata visualized. - A single recently bleeding angioectasia in the jejunum. Treated with argon plasma coagulation (APC). - The examined portion of the ileum was normal. - An area in the proximal ileum was tattooed near the point of maximal scope insertion. - Overall impression is that the cecal AVM's are the primary source of blood loss in comparison to small bowel findings. - No additional small (more content not included)... [facility] 09-19-2023 Telephone encounter Note Discussed with Dr. You to add pt 09/24/23 at 1600. Called pt to notify of sooner appt-no answer. Left VM with appt info. Fidencio Mon RN [facility] 09-19-2023 Miscellaneous Notes Discussed with Dr. You to add pt 09/24/23 at 1600. Called pt to notify of sooner appt-no answer. Left VM with appt info. Fidencio Mon RN 09/18/23 Patient calling for sooner appt.ed nurse cannot help with sooner appts. She can see if she can recommend anything for his internal bleeding issue he is still having. Kip documented in this encounter [facility] 09-18-2023 Note HNO ID: [id number] Author: WILTON PALMA RN Service: ? Author Type: Registered Nurse Type: Progress Notes Filed: 09/18/2023 16:54 Note Text: CDM Telephonic Outreach Provider Action/FYI CDM: CKD Left a message to verify symptom status, instructed to contact PCP for condition changes and needs. Contacted for: Routine Telephonic Outreach Contact made with patient: No, left message. Wilton Palma RN September 18, 2023 4:53 PM [facility] 09-18-2023 History of Present illness Narrative CDM Telephonic Outreach Provider Action/FYI CDM: CKD Left a message to verify symptom status, instructed to contact PCP for condition changes and needs. Contacted for: Routine Telephonic Outreach Contact made with patient: No, left message. Wilton Palma RN September 18, 2023 4:53 PM CD Telephonic Outreach Provider Action/FYI CDM: CKD Left a message to verify symptom status, instructed to contact PCP for condition changes and needs. Contacted for: Routine Telephonic Outreach Contact made with patient: No, left message. Wilton Palma RN September 17, 2023 5:23 PM documented in this encounter [facility] 09-18-2023 Telephone encounter Note 09/18/23 Patient calling for sooner appt.ed nurse cannot help with sooner appts. She can see if she can recommend anything for his internal bleeding issue he is still having. Kip [facility] 09-17-2023 Note HNO ID: [id number] Author: WILTON PALMA RN Service: ? Author Type: Registered Nurse Type: Progress Notes Filed: 09/18/2023 16:49 Note Text: CDM Telephonic Outreach Provider Action/FYI CDM: CKD Left a message to verify symptom status, instructed to contact PCP for condition changes and needs. Contacted for: Routine Telephonic Outreach Contact made with patient: No, left message. Wilton Palma RN September 17, 2023 5:23 PM [facility] 09-17-2023 Note Patient Outreach (AM [facility]) ADINA DAVID ([id number]) 1955 Date Time Provider Department 09/17/23 WILTON PALMA [facility] During your visit today, we recorded the following information about you: Wilton Palma RN 09/18/2023 4:49 PM Signed CDM Telephonic Outreach Provider Action/FYI CDM: CKD Left a message to verify symptom status, instructed to contact PCP for condition changes and needs. Contacted for: Routine Telephonic Outreach Contact made with patient: No, left message. Wilton Palma RN September 17, 2023 5:23 PM Wilton Palma RN 09/18/2023 4:54 PM Signed CDM Telephonic Outreach Provider Action/FYI CDM: CKD Left a message to verify symptom status, instructed to contact PCP for condition changes and needs. Contacted for: Routine Telephonic Outreach Contact made with patient: No, left message. Wilton Palma RN September 18, 2023 4:53 PM Allergies As of Date: 09/17/2023 Noted Allergy Reaction DOXYCYCLINE 07/17/2021 5 - Intolerance Comments: Rash, diarrhea PENICILLIN 02/22/2017 4 - Hives PENICILLIN V POTASSIUM 12/20/2021 14 - Other: See Comments Date Reviewed: 12/19/2022 Reviewed by: Halle Dale MD - Fully Assessed Reason for Visit: Community Monitoring Outreach [Other] Prescriptions as of 09/18/2023 - REPATHA SURECLICK 140 mg/mL pen injector INJECT 1 DOSE SUBCUTANEOUSLY ONCE EVERY MONTH - vlljbcttgjs-srcultxwt-gelwrnyx (TRELEGY ELLIPTA) 100-62.5-25 mcg inhalation powder Inhale 1 Puff as instructed once daily. - metoprolol tartrate, short acting, (LOPRESSOR) 25 mg tablet Take half a tablet by mouth twice daily. - enoxaparin (LOVENOX) 40 mg/0.4 mL Inject 0.4 mL subcutaneously every 24 hours. - hydroxyurea (HYDREA) 500 mg capsule Take 2 capsules by mouth once daily. - sodium bicarbonate 650 mg tablet Take 1 tablet by mouth twice daily. - roflumilast (DALIRESP) 500 mcg tab Take 1 tablet by mouth every afternoon. - omeprazole (PRILOSEC) 40 mg capsule Take 1 capsule by mouth once daily - zolpidem (AMBIEN) 5 mg tablet Take 1 tablet by mouth at bedtime as needed for up to 90 days. - magnesium oxide (MAG-OX) 400 mg (241.3 mg magnesium) tablet Take 0.5 tablets by mouth once daily. 0.5 tablet - CPAP - BABY ASPIRIN ORAL Take 81 mg by mouth once daily. - ergocalciferol 50,000 unit capsule (VITAMIN D2, DRISDOL) once every month. Problem List As Of Date 09/17/2023 Noted Resolved Multiple lipomas [D17.9] GERD (gastroesophageal reflux disease) [K21.9] H/O resection of large bowel [Z90.49] 04/14/2004 Essential hypertension [I10] Renal cancer, right (HCC) [C64.1] 04/29/2017 CLL (chronic lymphocytic leukemia) (HCC) [C91.1*06/13/2017 Iron deficiency anemia [D50.9] 06/13/2017 Iron adverse reaction [T45.4X5A] 10/24/2017 Frequency of urination [R35.0] 03/19/2018 02/11/2019 Nocturia [R35.1] 03/19/2018 BPH (benign prostatic hyperplasia) [N40.0] 10/05/2018 History of right nephrectomy [Z90.5] 10/05/2018 NSTEMI (non-ST elevated myocardial infarction) *10/24/2018 Stage 2 chronic kidney disease [N18.2] 11/10/2018 Post PTCA [Z98.61] 11/25/2018 S/P drug eluting coronary stent placement [Z95.*11/25/2018 GI bleed [K92.2] 12/31/2018 01/11/2019 Hypertriglyceridemia [E78.1] 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.* 01/11/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] DENG (acute kidney injury) (HCC) [N17.9] 01/07/2019 Facial numbness [R20.0] 03/31/2019 04/03/2019 Leukocytosis [D72.829] 03/31/2019 Essential thrombocythemia (HCC) [D47.3] 03/31/2019 CKD (chronic kidney disease) stage 3, GFR 30-59*03/31/2019 Closed left subtrochanteric femur fracture (HCC*07/22/2020 07/27/2020 Deep vein thrombosis (DVT) of femoral vein of l*03/14/2021 Leg swelling [M79.89] 03/14/2021 CIRA on CPAP [G47.33] 05/01/2021 Severe anemia [D64.9] 05/02/2021 Severe protein-calorie malnutrition (HCC) [E43] 05/09/2021 Acute blood loss anemia [D62] 05/16/2021 COVID-19 virus infection [U07.1] 05/16/2021 Obesity, Class I, BMI 30-34.9 [E66.9] 05/28/2021 Vitamin D deficiency [E55.9] 07/17/2021 Iron deficiency anemia due to chronic blood los*02/19/2022 SOB (shortness of breath) [R06.02] 11/27/2022 Lightheadedness [R42] 11/27/2022 Pulmonary embolism, unspecified chronicity, uns*12/01/2022 Coronary artery disease involving [place]*12/02/2022 Other emphysema (HCC) [J43.8] 12/02/2022 Chronic deep vein thrombosis (DVT) of proximal *12/02/2022 AVM (arteriovenous malformation) [Q27.30] 12/02/2022 History of gastrointestinal bleeding [Z87.19] 12/02/2022 Tachycardia [R00.0] 12/03/2022 Elevated troponin [R79.89] 12/03/2022 12/11/2022 Pulmonary nodules [R91.8] 12/05/2022 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 [facility] 08-12-2023 Note HNO ID: [id number] Author: WILTON PALMA RN Service: ? Author Type: Registered Nurse Type: Progress Notes Filed: 08/12/2023 15:36 Note Text: CDM Telephonic Outreach Provider Action/FYI CDM: CKD Left a message to verify symptom status and needs. Instructed to call PCP with any symptom or condition changes. Contacted for: Routine Telephonic Outreach Contact made with patient: No, left message. Wilotn Palma RN August 12, 2023 3:33 PM [facility] 08-12-2023 History of Present illness Narrative CDM Telephonic Outreach Provider Action/FYI CDM: CKD Left a message to verify symptom status and needs. Instructed to call PCP with any symptom or condition changes. Contacted for: Routine Telephonic Outreach Contact made with patient: No, left message. Wilton Palma RN August 12, 2023 3:33 PM CDM Telephonic Outreach Provider Action/FYI CDM: CKD Left a message to verify symptom status and needs. Instructed to call PCP with any symptom or condition changes. Contacted for: Routine Telephonic Outreach Contact made with patient: No, left message. Wilton Palma RN August 11, 2023 12:02 PM documented in this encounter [facility] 08-11-2023 Note HNO ID: [id number] Author: WILTON PALMA RN Service: ? Author Type: Registered Nurse Type: Progress Notes Filed: 08/12/2023 15:36 Note Text: CDM Telephonic Outreach Provider Action/FYI CDM: CKD Left a message to verify symptom status and needs. Instructed to call PCP with any symptom or condition changes. Contacted for: Routine Telephonic Outreach Contact made with patient: No, left message. Wilton Palma RN August 11, 2023 12:02 PM [facility] 08-11-2023 Note Patient Outreach (AM [facility]) ADINA DAVID ([id number]) 1955 M Date Time Provider Department 08/11/23 WILTON PALMA During your visit today, we recorded the following information about you: Wilton Palma RN 08/12/2023 3:36 PM Signed CDM Telephonic Outreach Provider Action/FYI CDM: CKD Left a message to verify symptom status and needs. Instructed to call PCP with any symptom or condition changes. Contacted for: Routine Telephonic Outreach Contact made with patient: No, left message. Wilton Palma RN August 11, 2023 12:02 PM Wilton Palma RN 08/12/2023 3:36 PM Signed CDM Telephonic Outreach Provider Action/FYI CDM: CKD Left a message to verify symptom status and needs. Instructed to call PCP with any symptom or condition changes. Contacted for: Routine Telephonic Outreach Contact made with patient: No, left message. Wilton Palma RN August 12, 2023 3:33 PM Allergies As of Date: 08/11/2023 Noted Allergy Reaction DOXYCYCLINE 07/17/2021 5 - Intolerance Comments: Rash, diarrhea PENICILLIN 02/22/2017 4 - Hives PENICILLIN V POTASSIUM 12/20/2021 14 - Other: See Comments Date Reviewed: 12/19/2022 Reviewed by: Halle Dale MD - Fully Assessed Reason for Visit: Community Monitoring Outreach [Other] Prescriptions as of 08/12/2023 - REPATHA SURECLICK 140 mg/mL pen injector INJECT 140 MG SUBCUTANEOUSLY ONCE EVERY MONTH - iwqcnqxurjm-tfqpejqnk-udzqpeue (TRELEGY ELLIPTA) 100-62.5-25 mcg inhalation powder Inhale 1 Puff as instructed once daily. - metoprolol tartrate, short acting, (LOPRESSOR) 25 mg tablet Take half a tablet by mouth twice daily. - enoxaparin (LOVENOX) 40 mg/0.4 mL Inject 0.4 mL subcutaneously every 24 hours. - hydroxyurea (HYDREA) 500 mg capsule Take 2 capsules by mouth once daily. - sodium bicarbonate 650 mg tablet Take 1 tablet by mouth twice daily. - roflumilast (DALIRESP) 500 mcg tab Take 1 tablet by mouth every afternoon. - omeprazole (PRILOSEC) 40 mg capsule Take 1 capsule by mouth once daily - zolpidem (AMBIEN) 5 mg tablet Take 1 tablet by mouth at bedtime as needed for up to 90 days. - magnesium oxide (MAG-OX) 400 mg (241.3 mg magnesium) tablet Take 0.5 tablets by mouth once daily. 0.5 tablet - CPAP - BABY ASPIRIN ORAL Take 81 mg by mouth once daily. - ergocalciferol 50,000 unit capsule (VITAMIN D2, DRISDOL) once every month. Problem List As Of Date 08/11/2023 Noted Resolved Multiple lipomas [D17.9] GERD (gastroesophageal reflux disease) [K21.9] H/O resection of large bowel [Z90.49] 04/14/2004 Essential hypertension [I10] Renal cancer, right (HCC) [C64.1] 04/29/2017 CLL (chronic lymphocytic leukemia) (HCC) [C91.1*06/13/2017 Iron deficiency anemia [D50.9] 06/13/2017 Iron adverse reaction [T45.4X5A] 10/24/2017 Frequency of urination [R35.0] 03/19/2018 02/11/2019 Nocturia [R35.1] 03/19/2018 BPH (benign prostatic hyperplasia) [N40.0] 10/05/2018 History of right nephrectomy [Z90.5] 10/05/2018 NSTEMI (non-ST elevated myocardial infarction) *10/24/2018 Stage 2 chronic kidney disease [N18.2] 11/10/2018 Post PTCA [Z98.61] 11/25/2018 S/P drug eluting coronary stent placement [Z95.*11/25/2018 GI bleed [K92.2] 12/31/2018 01/11/2019 Hypertriglyceridemia [E78.1] 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.* 01/11/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] DENG (acute kidney injury) (HCC) [N17.9] 01/07/2019 Facial numbness [R20.0] 03/31/2019 04/03/2019 Leukocytosis [D72.829] 03/31/2019 Essential thrombocythemia (HCC) [D47.3] 03/31/2019 CKD (chronic kidney disease) stage 3, GFR 30-59*03/31/2019 Closed left subtrochanteric femur fracture (HCC*07/22/2020 07/27/2020 Deep vein thrombosis (DVT) of femoral vein of l*03/14/2021 Leg swelling [M79.89] 03/14/2021 CIRA on CPAP [G47.33] 05/01/2021 Severe anemia [D64.9] 05/02/2021 Severe protein-calorie malnutrition (HCC) [E43] 05/09/2021 Acute blood loss anemia [D62] 05/16/2021 COVID-19 virus infection [U07.1] 05/16/2021 Obesity, Class I, BMI 30-34.9 [E66.9] 05/28/2021 Vitamin D deficiency [E55.9] 07/17/2021 Iron deficiency anemia due to chronic blood los*02/19/2022 SOB (shortness of breath) [R06.02] 11/27/2022 Lightheadedness [R42] 11/27/2022 Pulmonary embolism, unspecified chronicity, uns*12/01/2022 Coronary artery disease involving [place]*12/02/2022 Other emphysema (HCC) [J43.8] 12/02/2022 Chronic deep vein thrombosis (DVT) of proximal *12/02/2022 AVM (arteriovenous malformation) [Q27.30] 12/02/2022 History of gastrointestinal bleeding [Z87.19] 12/02/2022 Tachycardia [R00.0] 12/03/2022 Elevated troponin [R79.89] 12/03/2022 12/11/2022 Pulmonary nodules [R91.8] 12/05/2022 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 [facility] 07-25-2023 Miscellaneous Notes Per [employer] response: Repatha Approval received and reviewed. Approval good from 04/14/2023 through 07/24/2024. Lm on pt vm of rx approval. Rowdy Asher LPN PA sent via [employer]. Rowdy Asher LPN documented in this encounter [facility] 07-17-2023 History of Present illness Narrative Episode Visit Count: 13 Therapist That Will Accept/Oversee The Plan Of Care: Rachelle Steiner Start of Care Date: 05/16/23 Onset Date: 05/05/23 Plan of Care Certification Date: 05/16/23 Next Certification Due Date: 08/14/23 Patient Identified by Name and Date of : Yes REHABILITATION AND SPORTS THERAPY PHYSICAL THERAPY TREATMENT NOTE ASSESSMENT: Adina David tolerated the session with no issues. The patient will continue to benefit from ongoing skilled physical therapy to progress toward set goals. PLAN FOR NEXT VISIT: assess benefit of DN SUBJECTIVE: Woke with right calf pain Pain: Pain Pain Level: 3 Pain Location: Calf - Right Post Treatment Pain Post Treatment Symptoms: About the same OBJECTIVE MEASURES WITH LEVEL OF FUNCTION: TREATMENT: Manual Therapy: 1: Lumbar PA oscillations Soft Tissue Mobilization: Lumbar Dry Needling: Prone: B Lumbar paraspinal x5, R: QL x1, Gr Cluneal N. x1, piriformis x1, M & L gastroc x1, Sural N x1 Skilled Intervention: Manual skills to improve joint mobility, ROM, and decrease pain. Utilized anatomy knowledge of the therapist, and assessment of patient's response to intervention. Modalities: E-Stim Attended/TENS Body Region Treated - E-Stim Attended/TENS: R L5 & Sural N needle placements Patient Position: prone Current: biphasic Channels: 1 Intensity: 1 Minutes: 10 Skilled Intervention: Proper administration and selection of modality based on clinical presentation, deficits, and needs. Patient response monitored throughout treatment. Billing Manual TherapyTreatment Minutes: 30 E- Stim Attended/TENS Treatment Minutes: 10 Skilled Treatment Time Minutes (timed and untimed codes): 40 Total Session Time (minutes): 40 Session Start Time : 844 Session Stop Time : 924 Андрей Mon PT documented in this encounter [facility] 07-15-2023 History of Present illness Narrative Episode Visit Count: 12 Therapist That Will Accept/Oversee The Plan Of Care: Rachelle Steiner Start of Care Date: 05/16/23 Onset Date: 05/05/23 Plan of Care Certification Date: 05/16/23 Next Certification Due Date: 08/14/23 Patient Identified by Name and Date of : Yes REHABILITATION AND SPORTS THERAPY PHYSICAL THERAPY TREATMENT NOTE ASSESSMENT: Adina David tolerated the session with no issues. He demonstrated difficulty with R calf pain unrelieved with stretch . Denies back pain The patient will continue to benefit from ongoing skilled physical therapy to progress toward set goals. PLAN FOR NEXT VISIT: Progress per plan of care as able SUBJECTIVE: Back is feeling good. Only pain is in R calf Pain: OBJECTIVE MEASURES WITH LEVEL OF FUNCTION: See flow sheet for progression of exs TREATMENT: Therapeutic Exercise: 4: TRX squats 10x2 5: HS stretch 30 x 3 6: diagonals 3.5 pl [id number] 7: Leg ext 20# 3x15 8: Nustep 6min L5 9: Stretchboard for calf and soleus [id number] 10: Leg press 80# 3x15 11: Mid row 4pl 3x15 12: Leg curl 35# [id number] 13: High row 5pl [id number] 14: Straight arm pull down 4pl 3x15 Skilled Intervention: Skilled judgment was used in selection of appropriate interventions. Billing Total Session Time (minutes): 45 Session Start Time : 1102 Session Stop Time : 1147 Kaleigh Mueller PTA documented in this encounter [facility] 07-10-2023 Note HNO ID: [id number] Author: WILTON PALMA RN Service: ? Author Type: Registered Nurse Type: Progress Notes Filed: 07/10/2023 15:48 Note Text: CDM Telephonic Outreach Provider Action/FYI CDM: CKD Left a message to verify symptom status, instructed to contact PCP for condition changes and needs. Contacted for: Routine Telephonic Outreach Contact made with patient: No, left message. Wilton Palma RN July 10, 2023 3:47 PM [facility] 07-09-2023 Note HNO ID: [id number] Author: WILTON PALMA RN Service: ? Author Type: Registered Nurse Type: Progress Notes Filed: 07/10/2023 15:48 Note Text: CDM Telephonic Outreach Provider Action/FYI CDM: CKD Left a message to verify symptom status, instructed to contact PCP for condition changes and needs. Contacted for: Routine Telephonic Outreach Contact made with patient: No, left message. Wilton Palma RN July 09, 2023 12:22 PM [facility] 07-09-2023 Note Patient Outreach [place] FRANKIEADINA ([id number]) 1955 Date Time Provider Department 07/09/23 WILTON PALMA During your visit today, we recorded the following information about you: Wilton Palma RN 07/10/2023 3:48 PM Signed CDM Telephonic Outreach Provider Action/FYI CDM: CKD Left a message to verify symptom status, instructed to contact PCP for condition changes and needs. Contacted for: Routine Telephonic Outreach Contact made with patient: No, left message. Wilton Palma RN July 09, 2023 12:22 PM Wilton Palma RN 07/10/2023 3:48 PM Signed CDM Telephonic Outreach Provider Action/FYI CDM: CKD Left a message to verify symptom status, instructed to contact PCP for condition changes and needs. Contacted for: Routine Telephonic Outreach Contact made with patient: No, left message. Wilton Palma RN July 10, 2023 3:47 PM Allergies As of Date: 07/09/2023 Noted Allergy Reaction DOXYCYCLINE 07/17/2021 5 - Intolerance Comments: Rash, diarrhea PENICILLIN 02/22/2017 4 - Hives PENICILLIN V POTASSIUM 12/20/2021 14 - Other: See Comments Date Reviewed: 12/19/2022 Reviewed by: Halle Dale MD - Fully Assessed Reason for Visit: Community Monitoring Outreach [Other] Prescriptions as of 07/10/2023 - hpsdjaxzwtf-teiertrlr-avrjhxsv (TRELEGY ELLIPTA) 100-62.5-25 mcg inhalation powder Inhale 1 Puff as instructed once daily. - metoprolol tartrate, short acting, (LOPRESSOR) 25 mg tablet Take half a tablet by mouth twice daily. - enoxaparin (LOVENOX) 40 mg/0.4 mL Inject 0.4 mL subcutaneously every 24 hours. - hydroxyurea (HYDREA) 500 mg capsule Take 2 capsules by mouth once daily. - sodium bicarbonate 650 mg tablet Take 1 tablet by mouth twice daily. - roflumilast (DALIRESP) 500 mcg tab Take 1 tablet by mouth every afternoon. - omeprazole (PRILOSEC) 40 mg capsule Take 1 capsule by mouth once daily - zolpidem (AMBIEN) 5 mg tablet Take 1 tablet by mouth at bedtime as needed for up to 90 days. - evolocumab (REPATHA SURECLICK) 140 mg/mL pen injector Inject 140 mg subcutaneously every 2 weeks. - magnesium oxide (MAG-OX) 400 mg (241.3 mg magnesium) tablet Take 0.5 tablets by mouth once daily. 0.5 tablet - CPAP - BABY ASPIRIN ORAL Take 81 mg by mouth once daily. - ergocalciferol 50,000 unit capsule (VITAMIN D2, DRISDOL) once every month. Problem List As Of Date 07/09/2023 Noted Resolved Multiple lipomas [D17.9] GERD (gastroesophageal reflux disease) [K21.9] H/O resection of large bowel [Z90.49] 04/14/2004 Essential hypertension [I10] Renal cancer, right (HCC) [C64.1] 04/29/2017 CLL (chronic lymphocytic leukemia) (HCC) [C91.1*06/13/2017 Iron deficiency anemia [D50.9] 06/13/2017 Iron adverse reaction [T45.4X5A] 10/24/2017 Frequency of urination [R35.0] 03/19/2018 02/11/2019 Nocturia [R35.1] 03/19/2018 BPH (benign prostatic hyperplasia) [N40.0] 10/05/2018 History of right nephrectomy [Z90.5] 10/05/2018 NSTEMI (non-ST elevated myocardial infarction) *10/24/2018 Stage 2 chronic kidney disease [N18.2] 11/10/2018 Post PTCA [Z98.61] 11/25/2018 S/P drug eluting coronary stent placement [Z95.*11/25/2018 GI bleed [K92.2] 12/31/2018 01/11/2019 Hypertriglyceridemia [E78.1] 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.* 01/11/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] DENG (acute kidney injury) (HCC) [N17.9] 01/07/2019 Facial numbness [R20.0] 03/31/2019 04/03/2019 Leukocytosis [D72.829] 03/31/2019 Essential thrombocythemia (HCC) [D47.3] 03/31/2019 CKD (chronic kidney disease) stage 3, GFR 30-59*03/31/2019 Closed left subtrochanteric femur fracture (HCC*07/22/2020 07/27/2020 Deep vein thrombosis (DVT) of femoral vein of l*03/14/2021 Leg swelling [M79.89] 03/14/2021 CIRA on CPAP [G47.33] 05/01/2021 Severe anemia [D64.9] 05/02/2021 Severe protein-calorie malnutrition (HCC) [E43] 05/09/2021 Acute blood loss anemia [D62] 05/16/2021 COVID-19 virus infection [U07.1] 05/16/2021 Obesity, Class I, BMI 30-34.9 [E66.9] 05/28/2021 Vitamin D deficiency [E55.9] 07/17/2021 Iron deficiency anemia due to chronic blood los*02/19/2022 SOB (shortness of breath) [R06.02] 11/27/2022 Lightheadedness [R42] 11/27/2022 Pulmonary embolism, unspecified chronicity, uns*12/01/2022 Coronary artery disease involving [place]*12/02/2022 Other emphysema (HCC) [J43.8] 12/02/2022 Chronic deep vein thrombosis (DVT) of proximal *12/02/2022 AVM (arteriovenous malformation) [Q27.30] 12/02/2022 History of gastrointestinal bleeding [Z87.19] 12/02/2022 Tachycardia [R00.0] 12/03/2022 Elevated troponin [R79.89] 12/03/2022 12/11/2022 Pulmonary nodules [R91.8] 12/05/2022 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 medical conditio*12/09/2022 Personal history of DVT (deep vein thrombosis) *12/11/2022 Anticoagulation management encounter [Z51.81, Z*12/11/2022 Primary insomnia [F51.01 (more content not included)... [facility] 07-03-2023 History of Present illness Narrative Images from the original note were not included. Episode Visit Count: 10 Therapist That Will Accept/Oversee The Plan Of Care: Rachelle Steiner Start of Care Date: 05/16/23 Onset Date: 05/05/23 Plan of Care Certification Date: 05/16/23 Next Certification Due Date: 08/14/23 Patient Identified by Name and Date of : Yes REHABILITATION AND SPORTS THERAPY PHYSICAL THERAPY PROGRESS REPORT PLAN OF CARE UPDATE: Assessment: Adina David demonstrates moderate improvement in standing and walking. He has progressed toward goals. Patient continues to present with impairments in overall function, strength, and symptom management that interfere with . Current prognosis is Good due to: current objective clinical presentation, positive past response to therapy . He will benefit from continued skilled therapy services to meet the updated goals for this plan of care as noted below. Goals for Episode of Care: created on 05/16/23 through 08/14/23 [place] in home exercise program. Patient will decrease pain rating by 2 points to meet minimal clinical important difference for numeric pain rating scale. Patient will increase active ROM of L spine to WFL to allow pt to to improve postural alignment and to improve performance of ADLs. Perform stand/walk 30 minutes without pain. Improve postural awareness. Patient Goals: resolve pain Planned Interventions, Frequency, and Duration: 2x/week, 6 weeks Total Number of Visits Planned: 12 Patient to be seen for Therapeutic exercise ([id number]), Manual therapy ([id number]), Self-intermediate management ([id number]), Aquatic PT ([id number]), Patient/Family/Caregiver Education, Group Therapy ([id number]) PLAN FOR NEXT VISIT: Continue land PT SUBJECTIVE: LBP/LE weakness. He thinks he is getting stronger and calf is hurting less. He is still limited in how long he can stand/walk overall. Pain: Pain Pain Level: 2 Pain Location: Back Description: Sore Frequency: Intermittent PROMIS Scales 06/05/2023 05/31/2022 Higher is Better Phys Func - Score 38 (moderate dysfunction) 34 (moderate dysfunction) Phys Func - Percentile 12 5 Self-Eff Symptom - Score 45 (Average) 35 (Low) Self-Eff Symptom - Percentile 31 7 T-scores: mean of general population = 50. 5 points is clinically meaningfully difference Percentiles provide an indication of how the patient's score ranks in relation to the general population. Higher percentile rankings indicate better function/quality of life. 50th percentile is the average of the general population and indicates half of respondents had a worse score. OBJECTIVE MEASURES WITH LEVEL OF FUNCTION: TREATMENT: Therapeutic Exercise: 5: HS stretch 30 x 3 6: diagonals 3.5 pl [id number] 7: Leg ext 20# 3x15 8: Nustep 7min L4 9: Stretchboard [id number] 10: Leg press 75# 3x15 11: Mid row 4pl 3x15 12: Leg curl 35# [id number] 13: High row 4pl [id number] 14: Straight arm pull down 4pl 3x15 Skilled Intervention: Patient was educated in proper exercise technique and purpose for exercises. Reviewed and educated patient on additions/changes for home exercise program as above (*). Skilled judgment was used in selection of appropriate interventions. Billing Therapeutic Exercise Treatment Minutes: 40 Skilled Treatment Time Minutes (timed and untimed codes): 40 Total Session Time (minutes): 45 Session Start Time : 1050 Session Stop Time : 1135 Pantera Steiner PT documented in this encounter [facility] 07-01-2023 History of Present illness Narrative Episode Visit Count: 9 Therapist That Will Accept/Oversee The Plan Of Care: Rachelle Steiner Start of Care Date: 05/16/23 Onset Date: 05/05/23 Plan of Care Certification Date: 05/16/23 Next Certification Due Date: 08/14/23 Patient Identified by Name and Date of : Yes REHABILITATION AND SPORTS THERAPY PHYSICAL THERAPY TREATMENT NOTE ASSESSMENT: Adina David tolerated the session with no issues. He demonstrated improvements in overall strength. . The patient will continue to benefit from ongoing skilled physical therapy to progress toward set goals. PLAN FOR NEXT VISIT: Continue land PT SUBJECTIVE: LBP/LE weakness getting a lot of cramping and fatigue in R calf Pain: Pain Pain Level: 2 Pain Location: Back OBJECTIVE MEASURES WITH LEVEL OF FUNCTION: See flow sheet for strength progression TREATMENT: Therapeutic Exercise: 5: HS stretch 30 x 3 6: diagonals 3 pl 20x celso 7: MH abd 1 pl 10x2 celso 8: Nustep 5min L4 9: Stretchboard [id number] 10: Leg press 70# 3x15 11: Mid row 4pl 3x10 12: Leg curl 30# [id number] 13: High row 4pl [id number] Skilled Intervention: Skilled judgment was used in selection of appropriate interventions. Billing Total Session Time (minutes): 45 Session Start Time : 1000 Session Stop Time : 1045 Kaleigh Mueller PTA documented in this encounter [facility] 06-26-2023 History of Present illness Narrative Episode Visit Count: 8 Therapist That Will Accept/Oversee The Plan Of Care: Rachelle Steiner Start of Care Date: 05/16/23 Onset Date: 05/05/23 Plan of Care Certification Date: 05/16/23 Next Certification Due Date: 08/14/23 Patient Identified by Name and Date of : Yes REHABILITATION AND SPORTS THERAPY PHYSICAL THERAPY TREATMENT NOTE ASSESSMENT: Adina David tolerated the session with fatigue and expected muscle soreness. He demonstrated improvements in continued progression of core and LE strengthening. Noted tightness in hamstrings with stretches The patient will continue to benefit from ongoing skilled physical therapy to progress toward set goals. PLAN FOR NEXT VISIT: Continue land PT SUBJECTIVE: LBP/LE weakness Patient doing ok - states he had a calf cramp last night. Can't figure out why that keeps tightening up. Would like to try some needling. Pain: Pain Pain Level: 3 Pain Location: Back OBJECTIVE MEASURES WITH LEVEL OF FUNCTION: Progressing strength per flowsheet TREATMENT: Therapeutic Exercise: 5: HS stretch 30 x 3 6: diagonals 3 pl 20x celso 7: MH abd 1 pl 10x2 celso 8: Nustep 5min L4 9: Stretchboard [id number] 10: Leg press 70# 3x15 11: Mid row 4pl 3x10 12: Leg curl 30# [id number] 13: High row 4pl [id number] Skilled Intervention: Patient was educated in proper exercise technique and purpose for exercises. Skilled judgment was used in selection of appropriate interventions. Correct performance of therapeutic exercises was facilitated with verbal and visual cuing. Billing Therapeutic Exercise Treatment Minutes: 40 Skilled Treatment Time Minutes (timed and untimed codes): 40 Total Session Time (minutes): 40 Session Start Time : 0830 Session Stop Time : 0910 Eileen Medrano PTA documented in this encounter [facility] 06-20-2023 History of Present illness Narrative Episode Visit Count: 7 Therapist That Will Accept/Oversee The Plan Of Care: Rachelle tSeiner Start of Care Date: 05/16/23 Onset Date: 05/05/23 Plan of Care Certification Date: 05/16/23 Next Certification Due Date: 08/14/23 Patient Identified by Name and Date of : Yes REHABILITATION AND SPORTS THERAPY PHYSICAL THERAPY PROGRESS REPORT PLAN OF CARE UPDATE: Assessment: Adina David demonstrates minimal improvement in standing and walking. He has progressed toward goals. Patient continues to present with impairments in gait, overall function, and symptom management that interfere with sitting, rising from a chair, standing, walking, physical activities, recreational activities, sleeping . Current prognosis is Good due to: current objective clinical presentation, positive past response to therapy . He will benefit from continued skilled therapy services to meet the updated goals for this plan of care as noted below. Goals for Episode of Care: created on 05/16/23 through 08/14/23 [place] in home exercise program. Patient will decrease pain rating by 2 points to meet minimal clinical important difference for numeric pain rating scale. Patient will increase active ROM of L spine to WFL to allow pt to to improve postural alignment and to improve performance of ADLs. Perform stand/walk 30 minutes without pain. Improve postural awareness. Patient Goals: resolve pain Patient Goals: resolve pain Planned Interventions, Frequency, and Duration: 2x/week, 6 weeks Total Number of Visits Planned: 12 Patient to be seen for Therapeutic exercise ([id number]), Manual therapy ([id number]), Self-intermediate management (60882), Aquatic PT ([id number]), Patient/Family/Caregiver Education, Group Therapy ([id number]) PLAN FOR NEXT VISIT: Continue land PT SUBJECTIVE: LBP/LE weakness. He is still having symptoms with short periods of standing or walking. Patient Goals: resolve pain Functional Limitations: sitting, rising from a chair, standing, walking, physical activities, recreational activities, sleeping Prior Level of Function: Independent without limitations Intake Information: Prescription present Previous Treatment: Pain meds , Heat Falls Interview: No positive findings with falls interview Pain: Pain Pain Level: 3 Pain Location: Back Description: Sore Frequency: Continuous Additional Pain Information : Location 2 Pain Level 2: 4 Pain Location 2: Calf - Right Description 2: Tightness Frequency 2: Standing, Walking PROMIS Scales Higher is Better 06/05/2023 05/31/2022 Phys Func - Score 38 (moderate dysfunction) 34 (moderate dysfunction) Phys Func - Percentile 12% 5% Self-Eff Symptom - Score 45 (Average) 35 (Low) Self-Eff Symptom - Percentile 31% 7% T-scores: mean of general population = 50. 5 points is clinically meaningfully difference Percentiles provide an indication of how the patient's score ranks in relation to the general population. Higher percentile rankings indicate better function/quality of life. 50th percentile is the average of the general population and indicates half of respondents had a worse score. OBJECTIVE MEASURES WITH LEVEL OF FUNCTION: Lumbar Spine AROM Lumbar Flexion: Moderate limitation Lumbar Extension: Moderate limitation LE Strength R LE Strength: 5/5 L LE Strength: 5/5 Gait Gait Observation: Normal; slight trunk flexion TREATMENT: Therapeutic Exercise: 1: *Reviewed current HEP and right fit exercise program 2: *Clams 3: *Leg lifts 4: *Sit to stand modified height 5: *Calf raises 6: *Single leg balance 7: *Bridges 8: Nustep 5min L4 9: Stretchboard [id number] 10: Leg press 70# 3x15 11: Mid row 4pl 3x10 12: Leg curl 30# [id number] 13: High row 4pl [id number] Skilled Intervention: Patient was educated in proper exercise technique and purpose for exercises. Reviewed and educated patient on additions/changes for home exercise program as above (*). Skilled judgment was used in selection of appropriate interventions. Billing Therapeutic Exercise Treatment Minutes: 40 Skilled Treatment Time Minutes (timed and untimed codes): 40 Total Session Time (minutes): 40 Session Start Time : 1050 Session Stop Time : 1130 Pantera Steiner PT documented in this encounter [facility] 06-05-2023 History of Present illness Narrative Episode Visit Count: 5 Therapist That Will Accept/Oversee The Plan Of Care: Rachelle Steiner Start of Care Date: 05/16/23 Onset Date: 05/05/23 Plan of Care Certification Date: 05/16/23 Next Certification Due Date: 08/14/23 Patient Identified by Name and Date of : Yes REHABILITATION AND SPORTS THERAPY PHYSICAL THERAPY TREATMENT NOTE ASSESSMENT: Adina David tolerated the session with fatigue and expected muscle soreness. He demonstrated good tolerance for aquatic therapy and reports no increase in pain in ribs throughout session. The patient will continue to benefit from ongoing skilled physical therapy to progress toward set goals. PLAN FOR NEXT VISIT: pool x 4 SUBJECTIVE: LBP Patient doing ok - had a lot of rib pain after last time because he overdid it after PT Pain: Pain Pain Level: 3 OBJECTIVE MEASURES WITH LEVEL OF FUNCTION: [place] good posture throughout ex TREATMENT: Aquatic Therapy: 1: Walk f/b/s 2: squats x 10 3: marching in place 4: UE N PD with small N x10 5: KBP 10x2 6: hip abd/add, flex/ext x 10 7: SL balance with N 8: Gastroc stretch at steps 9: step ups on box Abbreviation Baum: BA = buoyancy assisted BR = buoyancy resisted BS = buoyancy supported reps = repetitions HEP = home exercise program Skilled Intervention: Patient was educated in proper exercise technique and purpose for exercises. Skilled judgment was provided in selection of appropriate interventions. Group Therapy: 1: DW bike and hang Skilled Intervention: Aquatic Skilled judgment was provided in selection of appropriate progression. Billing Aquatic Therapy Treatment Minutes: 30 * Group Therapy: 1 unit Skilled Treatment Time Minutes (timed and untimed codes): 45 Total Session Time (minutes): 60 Session Start Time : 1330 Session Stop Time : 1430 Eileen Medrano PTA documented in this encounter [facility] 06-02-2023 History of Present illness Narrative Episode Visit Count: 4 Therapist That Will Accept/Oversee The Plan Of Care: Rachelle Steiner Start of Care Date: 05/16/23 Onset Date: 05/05/23 Plan of Care Certification Date: 05/16/23 Next Certification Due Date: 08/14/23 Patient Identified by Name and Date of : Yes REHABILITATION AND SPORTS THERAPY PHYSICAL THERAPY TREATMENT NOTE ASSESSMENT: Adina David tolerated the session with fatigue and expected muscle soreness. He demonstrated improvements in calf pain as he progressed through strengthening exercises. The patient will continue to benefit from ongoing skilled physical therapy to progress toward set goals. PLAN FOR NEXT VISIT: pool x 5 SUBJECTIVE: LBP Patient doing well - states he wouldn't be here if he felt like this didn't help Pain: Pain Pain Level: 3 Pain Location: Back Additional Pain Information : Location 2 Pain Level 2: 4 Pain Location 2: Calf - Right OBJECTIVE MEASURES WITH LEVEL OF FUNCTION: Progressing strength per flowsheet TREATMENT: Aquatic Therapy: Aquatic Therapy ([id number]): 10 1: Walk f/b/s 2: squats x 10 3: marching in place 4: UE N PD with small N x10 5: KBP 10x2 6: hip abd/add, flex/ext x 10 7: SL balance with N 8: Gastroc stretch at steps 9: step ups on box Abbreviation Baum: BA = buoyancy assisted BR = buoyancy resisted BS = buoyancy supported reps = repetitions HEP = home exercise program Skilled Intervention: Patient was educated in proper exercise technique and purpose for exercises. Skilled judgment was provided in selection of appropriate interventions. Group Therapy: 1: DW bike and hang Skilled Intervention: Aquatic Skilled judgment was provided in selection of appropriate progression. Billing Aquatic Therapy Treatment Minutes: 30 * Group Therapy: 1 unit Skilled Treatment Time Minutes (timed and untimed codes): 45 Total Session Time (minutes): 55 Session Start Time : 829 Session Stop Time : 924 Eileen Medrano PTA documented in this encounter [facility] 05-30-2023 History of Present illness Narrative Episode Visit Count: 3 Therapist That Will Accept/Oversee The Plan Of Care: Rachelle Steiner Start of Care Date: 05/16/23 Onset Date: 05/05/23 Plan of Care Certification Date: 05/16/23 Next Certification Due Date: 08/14/23 Patient Identified by Name and Date of : Yes REHABILITATION AND SPORTS THERAPY PHYSICAL THERAPY TREATMENT NOTE ASSESSMENT: Adina David tolerated the session with decreased symptoms and less fatigue. He demonstrated improvements in tolerance to aquatic exercise and strength progression and challenge with balance exercise. The patient will continue to benefit from ongoing skilled physical therapy to progress toward set goals. PLAN FOR NEXT VISIT: pool x 6 SUBJECTIVE: slip and fall on ice; fractured mid lumbar pedicle. He has LBP on lower R side. He used pain meds. He uses heat. He hurts no matter what position he is in. He plans to travel to [place] in a few weeks. He has performed aquatic PT before and thought it would be helpful to get him moving without hurting more. He would also like to return to [employer] class at gym. Patient reports fatigue after last visit but doing okay. Last visit was too early and didn't do as well. Goes to [employer] 2x/week. Has plans to go on vacation to [place] with dtr to visit friends Pain: Pain Pain Level: 3 Pain Location: Back Description: (R calf pain) OBJECTIVE MEASURES WITH LEVEL OF FUNCTION: TREATMENT: Aquatic Therapy: Footwear on pool deck pre-treatment: Yes, patient wearing appropriate footwear and appeared safe on pool deck Footwear on pool deck post-treatment: Yes, patient wearing appropriate footwear and appeared safe on pool deck Entered the pool: Forward on stairs Entered the pool assist level: With rail Entered the pool step pattern: Step to step 1: Walk f/b/s 2: squats x 10 3: marching in place 4: UE N PD with small N x10 5: KBP 10x2 6: hip abd/add, flex/ext x 10 7: SL balance with N 8: Gastroc stretch at steps Abbreviation Baum: BA = buoyancy assisted BR = buoyancy resisted BS = buoyancy supported reps = repetitions HEP = home exercise program Skilled Intervention: Skilled judgment was provided in selection of appropriate interventions. Correct performance of exercises was facilitated with verbal cueing. Group Therapy: 1: DW bike and hang Skilled Intervention: Aquatic Skilled judgment was provided in selection of appropriate progression. Billing Aquatic Therapy Treatment Minutes: 30 * Group Therapy: 1 unit Skilled Treatment Time Minutes (timed and untimed codes): 45 Total Session Time (minutes): 45 Session Start Time : 834 Session Stop Time : 919 Heaven Shelley PTA documented in this encounter [facility] 05-28-2023 History of Present illness Narrative Episode Visit Count: 2 Therapist That Will Accept/Oversee The Plan Of Care: Rachelle Steiner Start of Care Date: 05/16/23 Onset Date: 05/05/23 Plan of Care Certification Date: 05/16/23 Next Certification Due Date: 08/14/23 Patient Identified by Name and Date of : Yes REHABILITATION AND SPORTS THERAPY PHYSICAL THERAPY TREATMENT NOTE ASSESSMENT: Adina David tolerated the session with no issues. He demonstrated difficulty with spinal pain endurance is poor . The patient will continue to benefit from ongoing skilled physical therapy to progress toward set goals. PLAN FOR NEXT VISIT: pool x7 SUBJECTIVE: slip and fall on ice; fractured mid lumbar pedicle. He has LBP on lower R side. He used pain meds. He uses heat. He hurts no matter what position he is in. He plans to travel to [place] in a few weeks. He has performed aquatic PT before and thought it would be helpful to get him moving without hurting more. He would also like to return to right fit class at gym. Pain: Pain Pain Level: 5 Pain Location: Back OBJECTIVE MEASURES WITH LEVEL OF FUNCTION: Low stamina TREATMENT: Aquatic Therapy: Aquatic Therapy ([id number]): 8 1: walk 2: squats x10 3: marching in place 4: UE N PD with small N x10 5: KBP 10x2 6: bike in deep Abbreviation Baum: BA = buoyancy assisted BR = buoyancy resisted BS = buoyancy supported reps = repetitions HEP = home exercise program Skilled Intervention: Skilled judgment was provided in selection of appropriate interventions. Billing Therapeutic Exercise Treatment Minutes: 35 Skilled Treatment Time Minutes (timed and untimed codes): 35 Total Session Time (minutes): 35 Session Start Time : 739 Session Stop Time : 814 Kaleigh Mueller PTA documented in this encounter [facility] 05-27-2023 Note HNO ID: [id number] Author: WILTON PALMA RN Service: ? Author Type: Registered Nurse Type: Progress Notes Filed: 06/02/2023 13:53 Note Text: CDM Telephonic Outreach Provider Action/FYI CDM: CKD Left a message to verify symptom status and needs. Instructed to call PCP with any symptom or condition changes. Contacted for: Routine Telephonic Outreach Contact made with patient: No, left message. Wilton Palma RN May 27, 2023 1:21 PM [facility] 05-27-2023 History of Present illness Narrative CDM Telephonic Outreach Provider Action/FYI CDM: CKD Left a message to verify symptom status and needs. Instructed to call PCP with any symptom or condition changes. Contacted for: Routine Telephonic Outreach Contact made with patient: No, left message. Wilton Palma RN May 27, 2023 1:21 PM documented in this encounter [facility] 05-27-2023 Note Patient Outreach (AM [facility]) ADINA DAVID ([id number]) 1955 M Date Time Provider Department 05/27/23 WILTON PALMA [facility] During your visit today, we recorded the following information about you: Wilton Palma RN 06/02/2023 1:53 PM Signed CDM Telephonic Outreach Provider Action/FYI CDM: CKD Left a message to verify symptom status and needs. Instructed to call PCP with any symptom or condition changes. Contacted for: Routine Telephonic Outreach Contact made with patient: No, left message. Wilton Palma RN May 27, 2023 1:21 PM Allergies As of Date: 05/27/2023 Noted Allergy Reaction DOXYCYCLINE 07/17/2021 5 - Intolerance Comments: Rash, diarrhea PENICILLIN 02/22/2017 4 - Hives PENICILLIN V POTASSIUM 12/20/2021 14 - Other: See Comments Date Reviewed: 12/19/2022 Reviewed by: Halle Dale MD - Fully Assessed Reason for Visit: Community Monitoring Outreach [Other] Prescriptions as of 06/02/2023 - oibsrmtfypa-oknwwbasw-qomzctxl (TRELEGY ELLIPTA) 100-62.5-25 mcg inhalation powder Inhale 1 Puff as instructed once daily. - metoprolol tartrate, short acting, (LOPRESSOR) 25 mg tablet Take half a tablet by mouth twice daily. - enoxaparin (LOVENOX) 40 mg/0.4 mL Inject 0.4 mL subcutaneously every 24 hours. - hydroxyurea (HYDREA) 500 mg capsule Take 2 capsules by mouth once daily. - sodium bicarbonate 650 mg tablet Take 1 tablet by mouth twice daily. - roflumilast (DALIRESP) 500 mcg tab Take 1 tablet by mouth every afternoon. - omeprazole (PRILOSEC) 40 mg capsule Take 1 capsule by mouth once daily - zolpidem (AMBIEN) 5 mg tablet Take 1 tablet by mouth at bedtime as needed for up to 90 days. - evolocumab (REPATHA SURECLICK) 140 mg/mL pen injector Inject 140 mg subcutaneously every 2 weeks. - magnesium oxide (MAG-OX) 400 mg (241.3 mg magnesium) tablet Take 0.5 tablets by mouth once daily. 0.5 tablet - CPAP - BABY ASPIRIN ORAL Take 81 mg by mouth once daily. - ergocalciferol 50,000 unit capsule (VITAMIN D2, DRISDOL) once every month. Problem List As Of Date 05/27/2023 Noted Resolved Multiple lipomas [D17.9] GERD (gastroesophageal reflux disease) [K21.9] H/O resection of large bowel [Z90.49] 04/14/2004 Essential hypertension [I10] Renal cancer, right (HCC) [C64.1] 04/29/2017 CLL (chronic lymphocytic leukemia) (HCC) [C91.1*06/13/2017 Iron deficiency anemia [D50.9] 06/13/2017 Iron adverse reaction [T45.4X5A] 10/24/2017 Frequency of urination [R35.0] 03/19/2018 02/11/2019 Nocturia [R35.1] 03/19/2018 BPH (benign prostatic hyperplasia) [N40.0] 10/05/2018 History of right nephrectomy [Z90.5] 10/05/2018 NSTEMI (non-ST elevated myocardial infarction) *10/24/2018 Stage 2 chronic kidney disease [N18.2] 11/10/2018 Post PTCA [Z98.61] 11/25/2018 S/P drug eluting coronary stent placement [Z95.*11/25/2018 GI bleed [K92.2] 12/31/2018 01/11/2019 Hypertriglyceridemia [E78.1] 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.* 01/11/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] DENG (acute kidney injury) (HCC) [N17.9] 01/07/2019 Facial numbness [R20.0] 03/31/2019 04/03/2019 Leukocytosis [D72.829] 03/31/2019 Essential thrombocythemia (HCC) [D47.3] 03/31/2019 CKD (chronic kidney disease) stage 3, GFR 30-59*03/31/2019 Closed left subtrochanteric femur fracture (HCC*07/22/2020 07/27/2020 Deep vein thrombosis (DVT) of femoral vein of l*03/14/2021 Leg swelling [M79.89] 03/14/2021 CIRA on CPAP [G47.33] 05/01/2021 Severe anemia [D64.9] 05/02/2021 Severe protein-calorie malnutrition (HCC) [E43] 05/09/2021 Acute blood loss anemia [D62] 05/16/2021 COVID-19 virus infection [U07.1] 05/16/2021 Obesity, Class I, BMI 30-34.9 [E66.9] 05/28/2021 Vitamin D deficiency [E55.9] 07/17/2021 Iron deficiency anemia due to chronic blood los*02/19/2022 SOB (shortness of breath) [R06.02] 11/27/2022 Lightheadedness [R42] 11/27/2022 Pulmonary embolism, unspecified chronicity, uns*12/01/2022 Coronary artery disease involving [place]*12/02/2022 Other emphysema (HCC) [J43.8] 12/02/2022 Chronic deep vein thrombosis (DVT) of proximal *12/02/2022 AVM (arteriovenous malformation) [Q27.30] 12/02/2022 History of gastrointestinal bleeding [Z87.19] 12/02/2022 Tachycardia [R00.0] 12/03/2022 Elevated troponin [R79.89] 12/03/2022 12/11/2022 Pulmonary nodules [R91.8] 12/05/2022 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 medical conditio*12/09/2022 Personal history of DVT (deep vein thrombosis) *12/11/2022 Anticoagulation management encounter [Z51.81, Z*12/11/2022 Primary insomnia [F51.01] 12/13/2022 Encounter Status:Closed by WILTON PALMA on 06/02/23 [facility] 05-16-2023 History of Present illness Narrative Episode Visit Count: 1 Therapist That Will Accept/Oversee The Plan Of Care: Rachelle Steiner Start of Care Date: 05/16/23 Onset Date: 05/05/23 Plan of Care Certification Date: 05/16/23 Next Certification Due Date: 08/14/23 Patient Identified by Name and Date of : Yes REHABILITATION AND SPORTS THERAPY PHYSICAL THERAPY EVALUATION PLAN OF CARE: Assessment: Adina David presents with diagnosis of LBP that interferes with sitting, rising from a chair, standing, walking, physical activities, recreational activities, sleeping . He presents with impairments in ADL's, independence in exercise, overall function, posture, range of motion, and symptom management. PROMIS (Patient-Reported Outcomes Measurement Information System) scores were reviewed and physical function domain identified as a rehabilitation concern. Prognosis for therapy is Good due to: current objective clinical presentation, positive past response to therapy . He will benefit from skilled therapy services to meet the goals established for this plan of care as noted below. Goals for Episode of Care: created on 05/16/23 through 08/14/23 [place] in home exercise program. Patient will decrease pain rating by 2 points to meet minimal clinical important difference for numeric pain rating scale. Patient will increase active ROM of L spine to WFL to allow pt to to improve postural alignment and to improve performance of ADLs. Perform stand/walk 30 minutes without pain. Improve postural awareness. Patient Goals: resolve pain Planned Interventions, Frequency, and Duration: Current Frequency: 2x/week Duration: 6 weeks Total Number of Visits Planned: 12 Planned Treatment Interventions: Therapeutic exercise (53205), Manual therapy (35351), Self-intermediate management (26295), Aquatic PT (60663), Patient/Family/Caregiver Education, Group Therapy (20221) PLAN FOR NEXT VISIT: Initiate aquatic therapy Patient demonstrates good understanding of plan of care and treatment. The above goals and plan of care were discussed and agreed upon by patient/family. SUBJECTIVE: slip and fall on ice; fractured mid lumbar pedicle. He has LBP on lower R side. He used pain meds. He uses heat. He hurts no matter what position he is in. He plans to travel to [place] in a few weeks. He has performed aquatic PT before and thought it would be helpful to get him moving without hurting more. He would also like to return to right [place] class at gym. Patient Goals: resolve pain Functional Limitations: sitting, rising from a chair, standing, walking, physical activities, recreational activities, sleeping Prior Level of Function: Independent without limitations Relevant History Past Relevant Medical Conditions: Cancer, Hypertension, Falls, Blood Disorders, Covid Employment: Retired Recreation / Current Exercise: right fit class-2x per week Intake Information: Prescription present Previous Treatment: Pain meds , Heat Falls Interview: No positive findings with falls interview Spine History Pain is Better Always: No position Sleep Affected by Pain: Not affected by pain Pain: Pain Pain Level: 6 Pain Location: Back Description: Dull, Aching Frequency: Continuous PROMIS Scales Higher is Better 05/31/2022 Phys Func - Score 34 (moderate dysfunction) Phys Func - Percentile 5% Self-Eff Symptom - Score 35 (Low) Self-Eff Symptom - Percentile 7% T-scores: mean of general population = 50. 5 points is clinically meaningfully difference Percentiles provide an indication of how the patient's score ranks in relation to the general population. Higher percentile rankings indicate better function/quality of life. 50th percentile is the average of the general population and indicates half of respondents had a worse score. OBJECTIVE MEASURES WITH LEVEL OF FUNCTION: Posture / Alignment Posture: Forward head, Rounded shoulders Spine Observations R Lumbar Spine Palpation Tenderness: Paraspinals (slight) L Lumbar Spine Palpation Tenderness: No tenderness noted R Thoracic Spine Palpation Tenderness: Paraspinals Sensation - Lumbar Sensation: Grossly Intact Lumbar Spine AROM Lumbar Flexion: Moderate limitation Lumbar Extension: Moderate limitation Lumbar R Side-Bend: Minimal limitation Lumbar L Side-Bend: Minimal limitation Lumbar R Rotation: Moderate limitation Lumbar L Rotation: Moderate limitation LE Strength R LE Strength: 5/5 L LE Strength: 5/5 Functional Strength R Single Leg Heel Raise: 10 L Single Leg Heel Raise: 10 Gait Gait Observation: Normal; slight trunk flexion Education: Education Barriers: None Learning/educational needs: Safety, Home exercise program, Plan of Care Education Provided: Yes, see treatment interventions for education provided Education Provided To: Patient Education Mode/Type: Demonstration, Explanation/Discussion, Performance Response to Education/Teach Back: States/Identifies, Return Demonstration TREATMENT: PT Treatment Interventions: Therapeutic Exercise Evaluation Therapeutic Exercise: 1: *Bridges 2: *Clams 3: *Leg lifts 4: *Sit to stand modified height 5: *Calf raises 6: *Single leg balance 7: *Reviewed activity modification to avoid symptom provocation Skilled Intervention: Patient was educated in proper exercise technique and purpose for exercises. Reviewed and educated patient on additions/changes for home exercise program as above (*). Skilled judgment was used in selection of appropriate interventions. Billing * Evaluation Low Complexity: 1 Unit Therapeutic Exercise Treatment Minutes: 25 Skilled Treatment Time Minutes (timed and untimed codes): 40 Total Session Time (minutes): 40 Session Start Time : 0830 Session Stop Time : 909 Pantera Steiner PT documented in this encounter [facility] 05-06-2023 Hospital Discharge instructions Patient Education 05/05/2023 23:40:33 Back Fracture (Compression Fracture) Back Fracture (Compression Fracture) Your spine stretches from the base of your skull to your tailbone. It's composed of 33 bones (vertebrae) stacked on top of one another. These bones are strong enough to support the weight of your upper body. Certain injuries, however, can damage one or more of the vertebrae and cause them to collapse. A collapsed bone in your spine is known as a compression fracture. What to expect in the ER A healthcare provider will ask about your health history and examine you. In some cases, you may have X-rays. You also may have other tests, such as computed tomography (CT) scan or magnetic resonance imaging (MRI) scan. These tests can provide detailed images of your bones and spinal cord. Treatment Treatment will depend on the type and cause of the fracture. You will be given medicine for pain. Severe fractures or those that cause nerve problems may need surgery. Many compression fractures mend on their own. Follow-up As you improve, you may be given exercises to strengthen your bones. If you have osteoporosis, your healthcare provider may prescribe a medicine to treat it. Sometimes you may have pain even after the bone has healed. In that case, your healthcare provider will discuss your further options. Causes of compression fracture Many compression fractures result from osteoporosis. This disease thins your bones and weakens so they can't withstand normal pressure and are more likely to break. Trauma from a car accident or hard fall can fracture even healthy vertebrae. In rare cases, vertebrae may fracture for unknown reasons. When to go to the emergency room (ER) Call 911 if you've been in an accident or had a fall and have neck or back pain, especially when pain occurs with any of these symptoms: Loss of control over your bowels or bladder Numbness or weakness High fever Unexplained back pain in a person with cancer [id number] [employer]. [address] [place] [address]. All rights reserved. This information is not intended as a substitute for professional medical care. Always follow your healthcare professional's instructions. Follow Up Care 05/05/2023 20:55:19 With:ULISES RAMOS DO Address: [address] [place] [phone] When:2-4 days [facility] 05-05-2023 Note Discharge Instructions Thank you for allowing [facility] to assist you with your healthcare needs. The following is important discharge information regarding your hospital visit. Diagnosis from Today's Visit Fall Fracture of transverse process of lumbar vertebra Fracture of transverse process of vertebra What to Do Next Instructions from Your Care Team The computer instructions referred to a compression fracture of the back which you do not have but this was the closest instructions the computer would give me. You have a transverse process fracture L1 and L2 No qualifying data available. Post Acute Orders No qualifying data available. You Need to Schedule the Following Appointments Follow Up with ULISES RAMOS DO When Within 2-4 days Where: [address] [place] [phone]- [phone] Allergies doxycycline penicillin Medications Please ask your primary doctor or pharmacist before taking any other medication not listed, including over the counter drugs, herbal medications, vitamins and or supplements as they may interact with your home medications. What How Much When Why Instructions Last Dose New acetaminophen-hydrocodone ([place] 325- 5 mg oral tablet) 1 tab(s) by mouth Every 6 hours Fracture of transverse process of lumbar vertebra Duration: 5 Days Printed Prescription Unchanged amLODIPine (amLODIPine 5 mg oral tablet) Unchanged azithromycin (azithromycin 250 mg oral tablet) Unchanged calcitriol (calcitriol 0.25 mcg oral capsule) Unchanged cefdinir (cefdinir 300 mg oral capsule) Unchanged codeine-guaifenesin (codeine-guaifenesin 10 mg-100 mg/ 5 mL oral syrup) Unchanged escitalopram (escitalopram 5 mg oral tablet) Unchanged fluticasone nasal (fluticasone proprionate NASAL 50 mcg/ spray) Unchanged metoprolol (Metoprolol Tartrate 100 mg oral tablet) Unchanged zolpidem (zolpidem 10 mg oral tablet) Please take this list to your next doctor s visit. Bring all medications you take, including over the counter medications, herbals and other supplements with you to your doctor s visit. Patients and families are reminded to discard old lists and to update any records with all medication providers or retail pharmacies. Medication Leaflets acetaminophen and hydrocodone (a SEET a MIN [place] and dorota mateus TRINH done) Lortab Elixir, Verdrocet What is the most important information I should know about acetaminophen and hydrocodone? MISUSE OF OPIOID MEDICINE CAN CAUSE ADDICTION, OVERDOSE, OR . Keep the medication in a place where others cannot get to it. Taking opioid medicine during may cause life-threatening withdrawal symptoms in the . Fatal side effects can occur if you use opioid medicine with alcohol, or with other drugs that cause drowsiness or slow your breathing. Stop taking this medicine and call your doctor right away if you have skin redness or a rash that spreads and causes blistering and peeling. What is acetaminophen and hydrocodone? Acetaminophen and hydrocodone is a combination medicine used to relieve moderate to severe pain. Acetaminophen and hydrocodone contains an opioid medicine, and may be habit-forming. Acetaminophen and hydrocodone may also be used for purposes not listed in this medication guide. What should I discuss with my healthcare provider before taking acetaminophen and hydrocodone? You should not use this medicine if you are allergic to acetaminophen or hydrocodone, or if you have: severe asthma or breathing problems; or a blockage in your stomach or intestines. Tell your doctor if you have ever had: breathing problems, sleep apnea (breathing stops during sleep); liver disease; a drug or alcohol addiction; kidney disease; a head injury or seizures; urination problems; or problems with your thyroid, pancreas, or gallbladder. If you use opioid medicine while you are , your baby could become dependent on the drug. This can cause life-threatening withdrawal symptoms in the baby after it is born. Babies born dependent on opioids may need medical treatment for several weeks. Ask a doctor before using opioid medicine if you are . Tell your doctor if you notice severe drowsiness or slow breathing in the nursing baby. How should I take acetaminophen and hydrocodone? Follow all directions on your prescription label. Never take this medicine in larger amounts, or for longer than prescribed. An overdose can damage your liver or cause . Tell your doctor if you feel an increased urge to use more of this medicine. Never share this medicine with another person, especially someone with a history of drug abuse or addiction. MISUSE CAN CAUSE ADDICTION, OVERDOSE, OR . Keep the medicine in a place where others cannot get to it. Selling or giving away this medicine is against the law. Measure liquid medicine carefully. Use the dosing syringe provided, or use a medicine dose-measuring device (not a kitchen spoon). If you need surgery or medical tests, tell the doctor ahead of time that you are using this medicine. You should not stop using this medicine suddenly. Follow your doctor's instructions about tapering your dose. Store at room temperature away from moisture and heat. Keep track of your medicine. You should be aware if anyone is using it improperly or without a prescription. Do not keep leftover opioid medication. Just one dose can cause in someone using this medicine accidentally or improperly. Ask your pharmacist where to locate a drug take-back disposal program. If there is no take-back program, flush the unused medicine down the toilet. What happens if I miss a dose? Since this medicine is used for pain, you are not likely to miss a dose. Skip any missed dose if it is almost time for your next dose. Do not use two doses at one time. What happens if I overdose? Seek emergency medical attention or call the Poison Help line at . An overdose of this medicine can be fatal, especially in a child or other person using the medicine without a prescription. Overdose symptoms may include nausea, vomiting, sweating, severe drowsiness, pinpoint pupils, slow breathing, or no breathing. Your doctor may recommend you get naloxone (a medicine to reverse an opioid overdose) and keep it with you at all times. A person caring for you can give the naloxone if you stop breathing or don't wake up. Your caregiver must still get emergency medical help and may need to perform CPR (cardiopulmonary resuscitation) on you while waiting for help to arrive. Anyone can buy naloxone from a pharmacy or local health department. Make sure any person caring for you knows where you keep naloxone and how to use it. What should I avoid while taking acetaminophen and hydrocodone? Avoid driving or operating machinery until you know how this medicine will affect you. Dizziness or drowsiness can cause falls, accidents, or severe injuries. Do not drink alcohol. Dangerous side effects or could occur. Ask a doctor or pharmacist before using any other medicine that may contain acetaminophen (sometimes abbreviated as APAP). Taking certain medications together can lead to a fatal overdose. What are the possible side effects of acetaminophen and hydrocodone? Get emergency medical help if you have signs of an allergic reaction: hives; difficulty breathing; swelling of your face, lips, tongue, or throat. Opioid medicine can slow or stop your breathing, and may occur. A person caring for you should give naloxone and/or seek emergency medical attention if you have slow breathing with long pauses, blue colored lips, or if you are hard to wake up. In rare cases, acetaminophen may cause a severe skin reaction that can be fatal. This could occur even if you have taken acetaminophen in the past and had no reaction. Stop taking this medicine and call your doctor right away if you have skin redness or a rash that spreads and causes blistering and peeling. Call your doctor at once if you have: noisy breathing, sighing, shallow breathing, breathing that stops; a light-headed feeling, like you might pass out; liver problems--nausea, upper stomach pain, tiredness, loss of appetite, dark urine, carlene-colored stools, jaundice (yellowing of the skin or eyes); low cortisol levels-- nausea, vomiting, loss of appetite, dizziness, worsening tiredness or weakness; o high levels of serotonin in the body--agitation, hallucinations, fever, sweating, shivering, fast heart rate, muscle stiffness, twitching, loss of coordination, nausea, vomiting, diarrhea. Serious breathing problems may be more likely in older adults and in those who are debilitated or have wasting syndrome or chronic breathing disorders. Common side effects include: dizziness, drowsiness, feeling tired; nausea, vomiting, stomach pain; constipation; or headache. This is not a complete list of side effects and others may occur. Call your doctor for medical advice about side effects. You may report side effects to FDA at 7-649-BHK-7168. What other drugs will affect acetaminophen and hydrocodone? You may have breathing problems or withdrawal symptoms if you start or stop taking certain other medicines. Tell your doctor if you also use an antibiotic, antifungal medication, heart or blood pressure medication, seizure medication, or medicine to treat HIV or hepatitis C. Opioid medication can interact with many other drugs and cause dangerous side effects or . Be sure your doctor knows if you also use: cold or allergy medicines, bronchodilator asthma/COPD medication, or a diuretic ('water pill'); medicines for motion sickness, irritable bowel syndrome, or overactive bladder; other opioids--opioid pain medicine or prescription cough medicine; a sedative like Valium--diazepam, alprazolam, lorazepam, Xanax, Klonopin, Versed, and others; drugs that make you sleepy or slow your breathing--a sleeping pill, muscle relaxer, medicine to treat mood disorders or mental illness; drugs that affect serotonin levels in your body--a stimulant, or medicine for depression, Parkinson's disease, migraine headaches, serious infections, or nausea and vomiting. This list is not complete. Other drugs may affect acetaminophen and hydrocodone, including prescription and vkkf-rpi-nblueyl medicines, vitamins, and herbal products. Not all possible interactions are listed here. Where can I get more information? Your doctor or pharmacist can provide more information about acetaminophen and hydrocodone. Remember, keep this and all other medicines out of the reach of children, never share your medicines with others, and use this medication only for the indication prescribed. Every effort has been made to ensure that the information provided by [employer]. ('[employer]') is accurate, up-to-date, and complete, but no guarantee is made to that effect. Drug information contained herein may be time sensitive. [employer] information has been compiled for use by healthcare practitioners and consumers in the [place] and therefore [employer] does not warrant that uses outside of the [place] are appropriate, unless specifically indicated otherwise. [employer] drug information does not endorse drugs, diagnose patients or recommend therapy. [employer] drug information is an informational resource designed to assist licensed healthcare practitioners in caring for their patients and/or to serve consumers viewing this service as a supplement to, and not a substitute for, the expertise, skill, knowledge and judgment of healthcare practitioners. The absence of a warning for a given drug or drug combination in no way should be construed to indicate that the drug or drug combination is safe, effective or appropriate for any given patient. [employer] does not assume any responsibility for any aspect of healthcare administered with the aid of information [employer] provides. The information contained herein is not intended to cover all possible uses, directions, precautions, warnings, drug interactions, allergic reactions, or adverse effects. If you have questions about the drugs you are taking, check with your doctor, nurse or pharmacist. Copyright 8822-9268 [employer]. Version: 19.. Revision Date: 12/02/2022. Education Materials Back Fracture (Compression Fracture) Your spine stretches from the base of your skull to your tailbone. It's composed of 33 bones (vertebrae) stacked on top of one another. These bones are strong enough to support the weight of your upper body. Certain injuries, however, can damage one or more of the vertebrae and cause them to collapse. A collapsed bone in your spine is known as a compression fracture. What to expect in the ER A healthcare provider will ask about your health history and examine you. In some cases, you may have X-rays. You also may have other tests, such as computed tomography (CT) scan or magnetic resonance imaging (MRI) scan. These tests can provide detailed images of your bones and spinal cord. Treatment Treatment will depend on the type and cause of the fracture. You will be given medicine for pain. Severe fractures or those that cause nerve problems may need surgery. Many compression fractures mend on their own. Follow-up As you improve, you may be given exercises to strengthen your bones. If you have osteoporosis, your healthcare provider may prescribe a medicine to treat it. Sometimes you may have pain even after the bone has healed. In that case, your healthcare provider will discuss your further options. Causes of compression fracture Many compression fractures result from osteoporosis. This disease thins your bones and weakens so they can't withstand normal pressure and are more likely to break. Trauma from a car accident or hard fall can fracture even healthy vertebrae. In rare cases, vertebrae may fracture for unknown reasons. When to go to the emergency room (ER) Call 911 if you've been in an accident or had a fall and have neck or back pain, especially when pain occurs with any of these symptoms: Loss of control over your bowels or bladder Numbness or weakness High fever Unexplained back pain in a person with cancer 2081-0638 [employer]. [address] [place] [address]. All rights reserved. This information is not intended as a substitute for professional medical care. Always follow your healthcare professional's instructions. Additional Information VACCINATE! IT SAVES LIVES! Members of the community who have not yet received the COVID-19 vaccine and would like to receive it can visit one of [facility] vaccine clinics. There are many vaccine clinic locations within the [facility]. For locations and available times, please visit [email or web address] It is important to note that some COVID mobile vaccine clinics are held outdoors and may be canceled in rainy or stormy conditions. To learn more about pediatric vaccinations (ages 5-11), we invite you to visit the [facility] webpage. [email or web address] To learn more about the COVID-19 vaccine, we invite you to visit the CDC website for a list of frequently asked questions. https://www.cdc.gov/coronavirus/2 019-ncov/vaccines/faq.html [facility] Patient Portal Access Instructions: Stay connected with your healthcare team and access your personal medical information anytime with the [facility] Patient Portal. If you would like a full copy of your medical records please contact the [facility] Medical Records Department Friday through Friday between 8a.m. and 4:30p.m. Please follow the directions below to access the portal: 1.Access the email account you provided upon registration to the [facility].2.Look for an invitation email from [facility].3.Open the email and access the invitation link: Accept Invitation to [facility]4.Fill in the required morales to create your account. Sign into [email or web address] with your username and password that you created in the above steps to stay up to date. You can then view a summary of results, a summary of your visits, and the ability to download your summaries to your computer or send the information securely to a physician. Remember that your healthcare information is confidential, so carefully consider who you will allow to register on the [facility] Patient Portal for access to your information. You can also access the [facility] Patient Portal on the [employer]. Simply click on Health Records under Health Data and then click on the [facility] logo. HOW TO SAFELY DISPOSE OF PRESCRIPTION MEDICATIONS Please use one of the following methods to safely dispose of your unused medications. 1.Use a drug disposal kit: the drug disposal pouch allows you to safely discard your old and unused drugs. Ask your nurse to give you one when you are discharged.2.Visit a local take-back location: Many local pharmacies and police departments have programs that collect old and unwanted prescription drugs. Call your local pharmacy or go to http://bit.New Body MD/0E8Ta7a to find one close to you.3.Make use of household items: Use cat litter or old coffee grounds to dispose medications if other options are not available. Mix your drugs with these household products, seal them in an airtight container and throw it into the garbage. Call [facility]: [phone] to be sure your drugs can be disposed of in this way. Some medicines may require a different approach.4.Never flush your medications down the toilet. IF YOU HAVE BEEN PRESCRIBED AN OPIOIDS FOR PAIN If you have been prescribed an opioid (such as hydrocodone, oxycodone or morphine), it is critical to understand the possible side effects and risks of opioid pain medications. Even when taken as directed, opioids can have several side effects including: Tolerance, meaning you might need to take more of a medication for the same pain relief. Nausea, vomiting and/or constipation. Sleepiness, dizziness, dry mouth, confusion, depression or itching. Physical dependence, meaning you have withdrawal symptoms when a medication is stopped ? this can develop within a few days. KNOW YOUR RESPONSIBILITIES It is important to know exactly how much and how often to take the opioid pain medications you are prescribed. Never take opioids in higher amounts or more often than prescribed. Do not combine opioids with alcohol or other drugs that cause drowsiness, such as benzodiazepines, also known as benzos, including diazepam and alprazolam, muscle relaxants or sleep aids. Never sell or share prescription opioids. This is illegal. Store opioids in a secure place and out of reach of others (including children, family, friends and visitors). The last page(s) of this document has been signed and retained as a CHART COPY Signatures Patient Education Materials Back Fracture (Compression Fracture) Medication Leaflets acetaminophen and hydrocodone My discharge plan and instructions have been reviewed and explained to me and IFRANKIE TIM E understand my current condition and have read and understand these discharge instructions. I have received a written copy of the plan/instructions. If I have questions, I am aware that I should contact my doctor. Patient/Bell Spinner Signature: Date/Time: Relationship to Patient: ____ Witness Name/Signature: Date/Time: [facility] 05-05-2023 Note ORIGINAL EXAMINATION: 3 XRAY VIEWS OF THE LUMBAR SPINE05/05/2023 9:03 pm LUMBAR SPINE 2 or 3 VIEWS COMPARISON: None available HISTORY: ORDERING SYSTEM PROVIDED HISTORY: Reason for Exam: fall FINDINGS: Vertebral body height and alignment are normal without evidence of fracture or listhesis. Mild decrease within each of the disc space heights with adjacent endplate hypertrophy. The posterior elements are intact and without significant degenerative change. Evaluation of the soft tissues is without radiographic abnormality. IMPRESSION: Mild degenerative changes throughout. No acute osseous injury. Interpreted by: Olivier Craven MD Preliminary Report By: Olivier Craven MD Electronically signed By Olivier Craven MD Dictated Date: 05/05/2023 11:14:36 PM Prelim Date: 05/05/2023 11:15:21 PM Sign Date: 05/05/2023 11:15:21 PM [facility] Note ORIGINAL EXAMINATION: CT OF THE CERVICAL SPINE WITHOUT CONTRAST05/05/2023 9:[address] CERVICAL SPINE WITHOUT CONTRAST TECHNIQUE: CT of the cervical spine was performed without the administration of intravenous contrast. Multiplanar reformatted images are provided for review. Automated exposure control, iterative reconstruction, and/or weight based adjustment of the mA/kV was utilized to reduce the radiation dose to as low as reasonably achievable. COMPARISON: CT cervical spine, December 19, 2022 HISTORY: ORDERING SYSTEM PROVIDED HISTORY: Reason for Exam: pain FINDINGS: The cervical vertebral bodies are in normal alignment without acute fracture or subluxation. Mild depression of the superior endplate of the C7 vertebral body stable from prior. The vertebral body heights are maintained. There is a decrease within the C3-C4, C5-C6 disc space heights. The paraspinal soft tissues are within normal limits. The lung apices are clear. IMPRESSION: 1. No acute osseous injury. 2. Mild degenerative changes worst at C5-C6. 3. Chronic appearing changes of the C7 superior endplate. Interpreted by: Olivier Craven MD Preliminary Report By: Olivier Craven MD Electronically signed By Olivier Craven MD Dictated Date: 05/05/2023 11:05:03 PM Prelim Date: 05/05/2023 11:06:53 PM Sign Date: 05/05/2023 11:06:53 PM [facility] Note ORIGINAL EXAMINATION: CT OF THE HEAD WITHOUT CONTRAST05/05/2023 11:00 pm TECHNIQUE: CT of the head was performed without the administration of intravenous contrast. Automated exposure control, iterative reconstruction, and/or weight based adjustment of the mA/kV was utilized to reduce the radiation dose to as low as reasonably achievable. Axial CT images from skull base to vertex without IV contrast. This exam was performed according to our COMPARISON: 12/19/2022 HISTORY: ORDERING SYSTEM PROVIDED HISTORY: Reason for Exam: pain Fall on ice FINDINGS: There is no intracranial hemorrhage, mass, mass effect or abnormal extra-axial fluid collection. No CT evidence for acute infarction. Mild parenchymal volume loss with commensurate ventricular enlargement. Mild scattered hypodense areas in the periventricular and subcortical white matter which is nonspecific however most consistent with chronic microvascular angiopathy. Mineralization noted in the bilateral basal ganglia. Atherosclerotic calcification of the vertebral and cavernous carotid arteries. The skull base and calvarium demonstrate no abnormality. Mucosal thickening of the paranasal sinuses as well as aerated secretions in the left maxillary sinus. The mastoid air cells are clear. Unchanged calcification noted over the left eyelid. IMPRESSION: No acute intracranial abnormalities. Aerated secretions in the left maxillary sinus, with mild mucosal thickening. I have reviewed the study and agree with the report. Gold Nolan M.D. Interpreted by: Gold Nolan Preliminary Report By: Eileen Roldan Electronically signed By Gold Nolan Dictated Date: 05/05/2023 11:03:45 PM Prelim Date: 05/05/2023 11:10:45 PM Sign Date: 05/06/2023 12:09:18 AM Ordering Provider: HAFSA JOHNSON [facility] 05-05-2023 Note ORIGINAL EXAMINATION: CT OF THE CHEST WITHOUT CONTRAST 05/05/2023 10:59 pm TECHNIQUE: CT of the chest was performed without the administration of intravenous contrast. Multiplanar reformatted images are provided for review. Automated exposure control, iterative reconstruction, and/or weight based adjustment of the mA/kV was utilized to reduce the radiation dose to as low as reasonably achievable. COMPARISON: 12/19/2022 HISTORY: ORDERING SYSTEM PROVIDED HISTORY: Reason for Exam: fall FINDINGS: Mediastinum: Aorta is normal in caliber without acute abnormality. Esophagus is normal in caliber. There are few small mediastinal nodes. Heart is normal in size without pericardial effusion. There are coronary arterial calcifications. Correlation with clinical findings may be useful. Pulmonary arteries are normal in caliber. Lungs/pleura: There is no consolidation or pleural effusion. There is no pneumothorax. There is mild bibasilar atelectasis. At the lateral right upper lobe, there is a pulmonary mass with irregular margins measuring 3 x 2.3 cm trans axial by 2.5 cm cc with small lateral extensions to the pleura. A primary or metastatic neoplastic process cannot be excluded. Follow-up PET-CT, and possibly tissue sampling may be useful for further evaluation. Upper Abdomen: There is no acute abnormality. Soft Tissues/Bones: There are subacute fractures of the medial left 11th and 12th ribs. There is chronic fracture again noted of the lateral right 7th rib. There are mildly displaced acute processes of the right transverse processes of L1 and L2. There are subacute/chronic fractures of the left transverse processes of L1 and L2. IMPRESSION: 1. There is no consolidation or pleural effusion. There is no pneumothorax. At the lateral right upper lobe, there is a pulmonary mass with irregular margins measuring 3 x 2.3 cm trans axial by 2.5 cm cc with small lateral extensions to the pleura. A primary or metastatic neoplastic process cannot be excluded. Follow-up PET-CT, and possibly tissue sampling may be useful for further evaluation. 2. There are mildly displaced acute processes of the right transverse processes of L1 and L2. 3. There are subacute fractures of the medial left 11th and 12th ribs. There is chronic fracture again noted of the lateral right 7th rib. There are subacute/chronic fractures of the left transverse processes of L1 and L2 Interpreted by: Gold Nolan Preliminary Report By: Gold Nolan Electronically signed By Gold Nolan Dictated Date: 05/05/2023 11:06:23 PM Prelim Date: 05/05/2023 11:20:44 PM Sign Date: 05/05/2023 11:20:44 PM [facility]ing Provider[facility] Note HNO ID: [id number] Author: WILTON PALMA RN Service: ? Author Type: Registered Nurse Type: Progress Notes Filed: 04/25/2023 15:43 Note Text: CDM Telephonic Outreach Provider Action/FYI CDM: CKD Left a message to verify symptom status, instructed to call PCP with any changes in condition?or needs. Contacted for: Routine Telephonic Outreach Contact made with patient: No, left message. Wilton Palma RN April 25, 2023 3:42 PM [facility] 04-23-2023 Note HNO ID: [id number] Author: WILTON PALMA RN Service: ? Author Type: Registered Nurse Type: Progress Notes Filed: 04/25/2023 15:43 Note Text: CDM Telephonic Outreach Provider Action/FYI CDM: CKD Left a message to verify symptom status, instructed to call PCP with any changes in condition?or needs. Contacted for: Routine Telephonic Outreach Contact made with patient: No, left message. Wilton Palma RN April 23, 2023 5:21 PM [facility] 04-23-2023 Note Patient Outreach (AM [facility]) ADINA DAVID ([id number]) 1955 Date Time Provider Department 04/23/23 WILTON PALMA [facility] During your visit today, we recorded the following information about you: Wilton Palma RN 04/25/2023 3:43 PM Signed CDM Telephonic Outreach Provider Action/FYI CDM: CKD Left a message to verify symptom status, instructed to call PCP with any changes in condition?or needs. Contacted for: Routine Telephonic Outreach Contact made with patient: No, left message. Wilton Palma RN April 23, 2023 5:21 PM Wilton Palma RN 04/25/2023 3:43 PM Signed CDM Telephonic Outreach Provider Action/FYI CDM: CKD Left a message to verify symptom status, instructed to call PCP with any changes in condition?or needs. Contacted for: Routine Telephonic Outreach Contact made with patient: No, left message. Wilton Palma RN April 25, 2023 3:42 PM Allergies As of Date: 04/23/2023 Noted Allergy Reaction DOXYCYCLINE 07/17/2021 5 - Intolerance Comments: Rash, diarrhea PENICILLIN 02/22/2017 4 - Hives PENICILLIN V POTASSIUM 12/20/2021 14 - Other: See Comments Date Reviewed: 12/19/2022 Reviewed by: Halle Dale MD - Fully Assessed Reason for Visit: Community Monitoring Outreach [Other] Prescriptions as of 04/25/2023 - bodjttbhndx-xljjcuafu-vfanpfik (TRELEGY ELLIPTA) 100-62.5-25 mcg inhalation powder Inhale 1 Puff as instructed once daily. - metoprolol tartrate, short acting, (LOPRESSOR) 25 mg tablet Take half a tablet by mouth twice daily. - enoxaparin (LOVENOX) 40 mg/0.4 mL Inject 0.4 mL subcutaneously every 24 hours. - hydroxyurea (HYDREA) 500 mg capsule Take 2 capsules by mouth once daily. - sodium bicarbonate 650 mg tablet Take 1 tablet by mouth twice daily. - roflumilast (DALIRESP) 500 mcg tab Take 1 tablet by mouth every afternoon. - omeprazole (PRILOSEC) 40 mg capsule Take 1 capsule by mouth once daily - zolpidem (AMBIEN) 5 mg tablet Take 1 tablet by mouth at bedtime as needed for up to 90 days. - evolocumab (REPATHA SURECLICK) 140 mg/mL pen injector Inject 140 mg subcutaneously every 2 weeks. - magnesium oxide (MAG-OX) 400 mg (241.3 mg magnesium) tablet Take 0.5 tablets by mouth once daily. 0.5 tablet - CPAP - BABY ASPIRIN ORAL Take 81 mg by mouth once daily. - ergocalciferol 50,000 unit capsule (VITAMIN D2, DRISDOL) once every month. Problem List As Of Date 04/23/2023 Noted Resolved Multiple lipomas [D17.9] GERD (gastroesophageal reflux disease) [K21.9] H/O resection of large bowel [Z90.49] 04/14/2004 Essential hypertension [I10] Renal cancer, right (HCC) [C64.1] 04/29/2017 CLL (chronic lymphocytic leukemia) (HCC) [C91.1*06/13/2017 Iron deficiency anemia [D50.9] 06/13/2017 Iron adverse reaction [T45.4X5A] 10/24/2017 Frequency of urination [R35.0] 03/19/2018 02/11/2019 Nocturia [R35.1] 03/19/2018 BPH (benign prostatic hyperplasia) [N40.0] 10/05/2018 History of right nephrectomy [Z90.5] 10/05/2018 NSTEMI (non-ST elevated myocardial infarction) *10/24/2018 Stage 2 chronic kidney disease [N18.2] 11/10/2018 Post PTCA [Z98.61] 11/25/2018 S/P drug eluting coronary stent placement [Z95.*11/25/2018 GI bleed [K92.2] 12/31/2018 01/11/2019 Hypertriglyceridemia [E78.1] 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.* 01/11/2019 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] DENG (acute kidney injury) (HCC) [N17.9] 01/07/2019 Facial numbness [R20.0] 03/31/2019 04/03/2019 Leukocytosis [D72.829] 03/31/2019 Essential thrombocythemia (HCC) [D47.3] 03/31/2019 CKD (chronic kidney disease) stage 3, GFR 30-59*03/31/2019 Closed left subtrochanteric femur fracture (HCC*07/22/2020 07/27/2020 Deep vein thrombosis (DVT) of femoral vein of l*03/14/2021 Leg swelling [M79.89] 03/14/2021 CIRA on CPAP [G47.33] 05/01/2021 Severe anemia [D64.9] 05/02/2021 Severe protein-calorie malnutrition (HCC) [E43] 05/09/2021 Acute blood loss anemia [D62] 05/16/2021 COVID-19 virus infection [U07.1] 05/16/2021 Obesity, Class I, BMI 30-34.9 [E66.9] 05/28/2021 Vitamin D deficiency [E55.9] 07/17/2021 Iron deficiency anemia due to chronic blood los*02/19/2022 SOB (shortness of breath) [R06.02] 11/27/2022 Lightheadedness [R42] 11/27/2022 Pulmonary embolism, unspecified chronicity, uns*12/01/2022 Coronary artery disease involving [place]*12/02/2022 Other emphysema (HCC) [J43.8] 12/02/2022 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 [facility] 03-17-2023 Note HNO ID: [id number] Author: Wilton Palma RN Service: ? Author Type: Registered Nurse Type: Progress Notes Filed: 03/17/2023 12:39 PM Note Text: [facility] Telephonic Outreach Provider Action/FYI CDM: CKD Left a message to verify symptom status, instructed to call PCP with any changes in condition?or needs. Contacted for: Routine Telephonic Outreach Contact made with patient: No, left message. Wilton Palma RN March 17, 2023 12:35 PM [facility] 03-17-2023 History of Present illness Narrative CD Telephonic Outreach Provider Action/FYI CDM: CKD Left a message to verify symptom status, instructed to call PCP with any changes in condition?or needs. Contacted for: Routine Telephonic Outreach Contact made with patient: No, left message. Wilton Palma RN March 17, 2023 12:35 PM [facility] Telephonic Outreach Provider Action/FYI CDM: CKD Left a message to verify symptom status, instructed to call PCP with any changes in condition?or needs. Contacted for: Routine Telephonic Outreach Contact made with patient: No, left message. Wilton Palma RN March 12, 2023 9:14 AM documented in this encounter [facility] 03-12-2023 Note HNO ID: [id number] Author: Wilton Palma RN Service: ? Author Type: Registered Nurse Type: Progress Notes Filed: 03/17/2023 12:39 PM Note Text: CDM Telephonic Outreach Provider Action/FYI CDM: CKD Left a message to verify symptom status, instructed to call PCP with any changes in condition?or needs. Contacted for: Routine Telephonic Outreach Contact made with patient: No, left message. Wilton Palma RN March 12, 2023 9:14 AM [facility] 03-12-2023 Note Patient Outreach (AM [facility]) ADINA DAVID ([id number]) 1955 Date Time Provider Department 03/12/23 WILTON PALMA [facility] During your visit today, we recorded the following information about you: Wilton Palma RN 03/17/2023 12:39 PM Signed CDM Telephonic Outreach Provider Action/FYI CDM: CKD Left a message to verify symptom status, instructed to call PCP with any changes in condition?or needs. Contacted for: Routine Telephonic Outreach Contact made with patient: No, left message. Wilton Palma RN March 12, 2023 9:14 AM Wilton Palma RN 03/17/2023 12:39 PM Signed CDM Telephonic Outreach Provider Action/FYI CDM: CKD Left a message to verify symptom status, instructed to call PCP with any changes in condition?or needs. Contacted for: Routine Telephonic Outreach Contact made with patient: No, left message. Wilton Palma RN March 17, 2023 12:35 PM Allergies As of Date: 03/12/2023 Noted Allergy Reaction DOXYCYCLINE 07/17/2021 5 - Intolerance Comments: Rash, diarrhea PENICILLIN 02/22/2017 4 - Hives PENICILLIN V POTASSIUM 12/20/2021 14 - Other: See Comments Date Reviewed: 12/19/2022 Reviewed by: Halle Dale MD - Fully Assessed Reason for Visit: Community Monitoring Outreach [Other] Prescriptions as of 03/17/2023 - ctxfroxfsyu-xhpyjzanp-pmmhzzrr (TRELEGY ELLIPTA) 100-62.5-25 mcg inhalation powder Inhale 1 Puff as instructed once daily. - metoprolol tartrate, short acting, (LOPRESSOR) 25 mg tablet Take half a tablet by mouth twice daily. - enoxaparin (LOVENOX) 40 mg/0.4 mL Inject 0.4 mL subcutaneously every 24 hours. - hydroxyurea (HYDREA) 500 mg capsule Take 2 capsules by mouth once daily. - sodium bicarbonate 650 mg tablet Take 1 tablet by mouth twice daily. - roflumilast (DALIRESP) 500 mcg tab Take 1 tablet by mouth every afternoon. - omeprazole (PRILOSEC) 40 mg capsule Take 1 capsule by mouth once daily - zolpidem (AMBIEN) 5 mg tablet Take 1 tablet by mouth at bedtime as needed for up to 90 days. - evolocumab (REPATHA SURECLICK) 140 mg/mL pen injector Inject 140 mg subcutaneously every 2 weeks. - magnesium oxide (MAG-OX) 400 mg (241.3 mg magnesium) tablet Take 0.5 tablets by mouth once daily. 0.5 tablet - CPAP - BABY ASPIRIN ORAL Take 81 mg by mouth once daily. - ergocalciferol 50,000 unit capsule (VITAMIN D2, DRISDOL) once every month. Problem List As Of Date 03/12/2023 Noted Resolved Multiple lipomas [D17.9] GERD (gastroesophageal reflux disease) [K21.9] H/O resection of large bowel [Z90.49] 04/14/2004 Essential hypertension [I10] Renal cancer, right (HCC) [C64.1] 04/29/2017 CLL (chronic lymphocytic leukemia) (HCC) [C91.1*06/13/2017 Iron deficiency anemia [D50.9] 06/13/2017 Iron adverse reaction [T45.4X5A] 10/24/2017 Frequency of urination [R35.0] 03/19/2018 02/11/2019 Nocturia [R35.1] 03/19/2018 BPH (benign prostatic hyperplasia) [N40.0] 10/05/2018 History of right nephrectomy [Z90.5] 10/05/2018 NSTEMI (non-ST elevated myocardial infarction) *10/24/2018 Stage 2 chronic kidney disease [N18.2] 11/10/2018 Post PTCA [Z98.61] 11/25/2018 S/P drug eluting coronary stent placement [Z95.*11/25/2018 GI bleed [K92.2] 12/31/2018 01/11/2019 Hypertriglyceridemia [E78.1] 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.* 01/11/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] DENG (acute kidney injury) (HCC) [N17.9] 01/07/2019 Facial numbness [R20.0] 03/31/2019 04/03/2019 Leukocytosis [D72.829] 03/31/2019 Essential thrombocythemia (HCC) [D47.3] 03/31/2019 CKD (chronic kidney disease) stage 3, GFR 30-59*03/31/2019 Closed left subtrochanteric femur fracture (HCC*07/22/2020 07/27/2020 Deep vein thrombosis (DVT) of femoral vein of l*03/14/2021 Leg swelling [M79.89] 03/14/2021 CIRA on CPAP [G47.33] 05/01/2021 Severe anemia [D64.9] 05/02/2021 Severe protein-calorie malnutrition (HCC) [E43] 05/09/2021 Acute blood loss anemia [D62] 05/16/2021 COVID-19 virus infection [U07.1] 05/16/2021 Obesity, Class I, BMI 30-34.9 [E66.9] 05/28/2021 Vitamin D deficiency [E55.9] 07/17/2021 Iron deficiency anemia due to chronic blood los*02/19/2022 SOB (shortness of breath) [R06.02] 11/27/2022 Lightheadedness [R42] 11/27/2022 Pulmonary embolism, unspecified chronicity, uns*12/01/2022 Coronary artery disease involving [place]*12/02/2022 Other emphysema (HCC) [J43.8] 12/02/2022 Chronic deep vein thrombosis (DVT) of proximal *12/02/2022 AVM (arteriovenous malformation) [Q27.30] 12/02/2022 History of gastrointestinal bleeding [Z87.19] 12/02/2022 Tachycardia [R00.0] 12/03/2022 Elevated troponin [R79.89] 12/03/2022 12/11/2022 Pulmonary nodules [R91.8] 12/05/2022 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 [facility] 02-20-2023 History of Present illness Narrative Electrophysiology Initial Visit Adina David is a 67 y.o. year old male patient with CAD s/p NV in 2019 with PCI to LAD Hypertension CKD stage III s/p nephrectomy GI bleed with arteriovenous malformation of colon CLL 6. CIRA 7. DVT/PE?: did not take anticoagulation: hospitalized on 11/2022 at [facility] for this, back in 12/2022 with pneumonia. Bacteremic at that point. 8. Abnormal event monitor: referred to us for this. Occasional palpitations. Patient referred to us for abnormal holter monitor. 48 hour Monitor November 2022 showed sinus rhythm with average heart rate of 98 bpm with less than 1% PVC and 2% SVE with 16 brief episodes of SVT. Patient's symptoms correlated with sinus tachycardia. Echocardiogram November 2022 showed normal LV function of 55%. No AF detected. PMHx/PSHx: Past Medical History: Diagnosis Date Cough, unspecified 03/17/2015 Cough Essential (primary) hypertension 03/17/2013 Benign essential hypertension Hemoptysis Hemoptysis Meralgia paresthetica, unspecified lower limb Meralgia paresthetica Other chest pain Pain, chest wall Other specified joint disorders, unspecified shoulder Shoulder impingement Personal history of other diseases of the respiratory system 03/06/2015 History of acute bacterial sinusitis Tobacco Denies, Alcohol 1-2 bottle wine a week / day, Caffeine use 6-7 cups of coffee /day, Drug use Denies FamHx: 6-7 Family History Problem Relation Name Age of Onset Cancer Mother Diabetes Father Heart failure Father Allergies Allergen Reactions Levofloxacin Unknown Penicillins Unknown Outpatient Medications: Current Outpatient Medications Medication Instructions albuterol 90 mcg/actuation inhaler 1 puff, inhalation, 3 times daily RT allopurinol (ZYLOPRIM) 100 mg, oral, Daily aspirin 81 mg EC tablet 1 tablet, oral, Daily calcitriol (Rocaltrol) 0.25 mcg capsule 1 capsule (0.25 mcg) 3 times a week. calcium carbonate (CALCIUM 600 ORAL) 2 tablets, oral, Daily ergocalciferol (Vitamin D-2) 1.25 MG (53970 UT) capsule escitalopram (LEXAPRO) 5 mg, oral, Daily fluticasone (Flonase) 50 mcg/actuation nasal spray 1 spray, Each Nostril, Daily bfodlxryalr-ochpitmex-ywdbcjec (Trelegy Ellipta) 100-62.5-25 mcg blister with device 1 puff, inhalation, Daily RT hydroxyurea (Hydrea) 500 mg capsule 1 capsule, oral, Daily magnesium oxide (MAG-OX) 400 mg, oral, Daily metoprolol tartrate (LOPRESSOR) 100 mg, oral, 2 times daily mupirocin (Bactroban) 2 % ointment Topical, Daily omeprazole (PRILOSEC) 40 mg, oral, Daily RT Repatha SureClick 140 mg, subcutaneous, Every 14 days Trelegy Ellipta 200-62.5-25 mcg blister with device valACYclovir (VALTREX) 1,000 mg, oral, 2 times daily, FOR 3 DAYS NEEDED FOR COLD SORES zolpidem (AMBIEN) 10 mg, oral, Nightly Last Recorded Vitals: .vital 02/20/2023 2:13 PM Vitals Systolic 163 Diastolic 88 Heart Rate 69 Height (in) 1.778 m (5' 10 ) Weight (lb) 187 BMI 26.83 kg/m2 BSA (m2) 2.05 m2 Visit Report Report Visit Vitals BP 163/88 Pulse 69 Ht 1.778 m (5' 10 ) Wt 84.8 kg (187 lb) BMI 26.83 kg/m Smoking Status Never BSA 2.05 m Physical Exam Constitutional: General: He is not in acute distress. Appearance: Normal appearance. Cardiovascular: Rate and Rhythm: Normal rate and regular rhythm. Musculoskeletal: General: No swelling. Skin: General: Skin is warm and dry. Neurological: Mental Status: He is alert. My Interpretation of Reviewed Study(s): Echo(December/2022): EF 50% Mild STEVEN,LAE Assessment Patient referred to our service due to abnormal event monitor and concern for atrial fibrillation. This was around 11/2022 when patient was quite sick suffering from possible PE and pneumonia. Due to this, he did not make appointment to see me until now. Patient seen today. Overall he claims to be doing 99% better. Denies any SOB or palpitations. Holter monitor reviewed. No AF detected. Some non sustained SVT (likely AT) in addition to PAC's and PVC's noted. Patient already on beta blockers, given his lack of symptoms I would not add any further treatment. With regards to anticoagulation, no need to anticoagulate at this time from an EP point of view. Anticoagulation for his PE/DVT is held due to history of GI bleeding requiring blood transfusions. If AF is detected down the line, he may be a candidate for a Watchman procedure. documented in this encounter [facility] Work Phone: 01-25-2023 Note HNO ID: [id number] Author: Note, Interface Service: ? Author Type: ? Type: Progress Notes Filed: 01/25/2023 2:22 AM Note Text: Epic Scheduled Downtime: 01/25/2023 1:00:00 AM to 01/25/2023 1:28:00 AM [facility] 01-21-2023 Miscellaneous Notes Fyi- called patient to schedule his follow up appt. Pt declined and states he is no longer following up with [facility] providers-mir documented in this encounter [facility] 01-17-2023 Miscellaneous Notes MRO faxed and placed in scanned bin documented in this encounter [facility] 01-15-2023 Note HNO ID: [id number] Author: Wilton Palma RN Service: ? Author Type: Registered Nurse Type: Progress Notes Filed: 02/03/2023 6:20 PM Note Text: M Telephonic Outreach Provider Action/KIMO Spk with Pt he noted was Admitted to [facility] 12/01/22-12/11/22 he noted was not happy with care. he reported is firing all [facility] providers. Pt noted will have an ultrasound of his right leg today, attempted to assess for symptoms and care needs, but was unable, Pt states he is not unhappy or upset with [employer].but with the other providers. Contacted for: Routine Telephonic Outreach Contact made with patient: Yes Patient identified by name and date of . Discussed care with patient Are you experiencing any new or worsening symptoms you need to talk about today? Yes Wilton Palma RN January 15, 2023 11:51 AM [facility] 01-15-2023 History of Present illness Narrative [facility] Telephonic Outreach Provider Samia/KIMO Spk with Pt he noted was Admitted to [facility] 12/01/22-12/11/22 he noted was not happy with care. he reported is firing all [facility] providers. Pt noted will have an ultrasound of his right leg today, attempted to assess for symptoms and care needs, but was unable, Pt states he is not unhappy or upset with [facility] [employer].but with the other providers. Contacted for: Routine Telephonic Outreach Contact made with patient: Yes Patient identified by name and date of . Discussed care with patient Are you experiencing any new or worsening symptoms you need to talk about today? Yes Wilton Palma RN January 15, 2023 11:51 AM documented in this encounter [facility] 01-15-2023 Note Patient Outreach (AM [facility] ADINA DAVID ([id number]) 1955 M Date Time Provider Department 01/15/23 WILTON PALMA [facility] During your visit today, we recorded the following information about you: Wilton Palma RN 02/03/2023 6:20 PM Signed [facility] Telephonic Outreach Provider Samia/KIMO Peacock with Pt he noted was Admitted to [facility] 12/01/22-12/11/22 he noted was not happy with care. he reported is firing all [facility] providers. Pt noted will have an ultrasound of his right leg today, attempted to assess for symptoms and care needs, but was unable, Pt states he is not unhappy or upset with [facility] [employer].but with the other providers. Contacted for: Routine Telephonic Outreach Contact made with patient: Yes Patient identified by name and date of . Discussed care with patient Are you experiencing any new or worsening symptoms you need to talk about today? Yes Wilton Palma RN January 15, 2023 11:51 AM Allergies As of Date: 01/15/2023 Noted Allergy Reaction DOXYCYCLINE 07/17/2021 5 - Intolerance Comments: Rash, diarrhea PENICILLIN 02/22/2017 4 - Hives PENICILLIN V POTASSIUM 12/20/2021 14 - Other: See Comments Date Reviewed: 12/19/2022 Reviewed by: Halle Dale MD - Fully Assessed Reason for Visit: Community Monitoring Outreach [Other] Prescriptions as of 02/03/2023 - fdytcmgatfj-qboylhzvl-vdhvughm (TRELEGY ELLIPTA) 100-62.5-25 mcg inhalation powder Inhale 1 Puff as instructed once daily. - metoprolol tartrate, short acting, (LOPRESSOR) 25 mg tablet Take half a tablet by mouth twice daily. - enoxaparin (LOVENOX) 40 mg/0.4 mL Inject 0.4 mL subcutaneously every 24 hours. - hydroxyurea (HYDREA) 500 mg capsule Take 2 capsules by mouth once daily. - sodium bicarbonate 650 mg tablet Take 1 tablet by mouth twice daily. - roflumilast (DALIRESP) 500 mcg tab Take 1 tablet by mouth every afternoon. - omeprazole (PRILOSEC) 40 mg capsule Take 1 capsule by mouth once daily - zolpidem (AMBIEN) 5 mg tablet Take 1 tablet by mouth at bedtime as needed for up to 90 days. - evolocumab (REPATHA SURECLICK) 140 mg/mL pen injector Inject 140 mg subcutaneously every 2 weeks. - magnesium oxide (MAG-OX) 400 mg (241.3 mg magnesium) tablet Take 0.5 tablets by mouth once daily. 0.5 tablet - CPAP - BABY ASPIRIN ORAL Take 81 mg by mouth once daily. - ergocalciferol 50,000 unit capsule (VITAMIN D2, DRISDOL) once every month. Problem List As Of Date 01/15/2023 Noted Resolved Multiple lipomas [D17.9] GERD (gastroesophageal reflux disease) [K21.9] H/O resection of large bowel [Z90.49] 04/14/2004 Essential hypertension [I10] Renal cancer, right (HCC) [C64.1] 04/29/2017 CLL (chronic lymphocytic leukemia) (HCC) [C91.1*06/13/2017 Iron deficiency anemia [D50.9] 06/13/2017 Iron adverse reaction [T45.4X5A] 10/24/2017 Frequency of urination [R35.0] 03/19/2018 02/11/2019 Nocturia [R35.1] 03/19/2018 BPH (benign prostatic hyperplasia) [N40.0] 10/05/2018 History of right nephrectomy [Z90.5] 10/05/2018 NSTEMI (non-ST elevated myocardial infarction) *10/24/2018 Stage 2 chronic kidney disease [N18.2] 11/10/2018 Post PTCA [Z98.61] 11/25/2018 S/P drug eluting coronary stent placement [Z95.*11/25/2018 GI bleed [K92.2] 12/31/2018 01/11/2019 Hypertriglyceridemia [E78.1] 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.* 01/11/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] DENG (acute kidney injury) (HCC) [N17.9] 01/07/2019 Facial numbness [R20.0] 03/31/2019 04/03/2019 Leukocytosis [D72.829] 03/31/2019 Essential thrombocythemia (HCC) [D47.3] 03/31/2019 CKD (chronic kidney disease) stage 3, GFR 30-59*03/31/2019 Closed left subtrochanteric femur fracture (HCC*07/22/2020 07/27/2020 Deep vein thrombosis (DVT) of femoral vein of l*03/14/2021 Leg swelling [M79.89] 03/14/2021 CIRA on CPAP [G47.33] 05/01/2021 Severe anemia [D64.9] 05/02/2021 Severe protein-calorie malnutrition (HCC) [E43] 05/09/2021 Acute blood loss anemia [D62] 05/16/2021 COVID-19 virus infection [U07.1] 05/16/2021 Obesity, Class I, BMI 30-34.9 [E66.9] 05/28/2021 Vitamin D deficiency [E55.9] 07/17/2021 Iron deficiency anemia due to chronic blood los*02/19/2022 SOB (shortness of breath) [R06.02] 11/27/2022 Lightheadedness [R42] 11/27/2022 Pulmonary embolism, unspecified chronicity, uns*12/01/2022 Coronary artery disease involving [place]*12/02/2022 Other emphysema (HCC) [J43.8] 12/02/2022 Chronic deep vein thrombosis (DVT) of proximal *12/02/2022 AVM (arteriovenous malformation) [Q27.30] 12/02/2022 History of gastrointestinal bleeding [Z87.19] 12/02/2022 Tachycardia [R00.0] 12/03/2022 Elevated troponin [R79.89] 12/03/2022 12/11/2022 Pulmonary nodules [R91.8] 12/05/2022 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 [facility] 01-10-2023 Miscellaneous Notes Call transfer received from Roland Ureña said pt needs handicap placard ordered on 12/19/22 (pending) to be sent to [facility] via fax at the request of the [facility] artist's representative on the line then transferred the call over. Messaged o and m supervisor TRAVON Conoey if ok to send Placard order to [facility] at pt's request. Ivet said ok. Placard sent to [facility] at their fax number as requested. Quentin Chavira LPN documented in this encounter [facility] 01-03-2023 Miscellaneous Notes Pt needs rescheduled (Appointment date 03/05/23) due to Dr Halle Dale schedule change. Pt unavailable at home phone. Left message on voicemail for return call. Quentin Chavira LPN documented in this encounter [facility] 01-01-2023 Note HNO ID: [id number] Author: Maddie White RN Service: ? Author Type: Registered Nurse Type: Progress Notes Filed: 01/01/2023 2:18 PM Note Text: TRANSITION CARE MANAGEMENT (TCM) FOLLOW-UP NOTE Provider Action/FYI Chart reviewed. Per chart notes for [facility], [facility]. No further follow-up at this time. Summary: Pt discharged from [facility] on 12/11/22. Admitted for: SOB, fatigue-Chronic pulmonary embolism Signature Maddie White RN January 01, 2023 [facility] 01-01-2023 History of Present illness Narrative TRANSITION CARE MANAGEMENT (TCM) FOLLOW-UP NOTE Provider Action/FYI Chart reviewed. Per chart notes for [facility], pt [facility]. No further follow-up at this time. Summary: Pt discharged from [facility] on 12/11/22. Admitted for: SOB, fatigue-Chronic pulmonary embolism Signature Maddie White RN January 01, 2023 documented in this encounter [facility] 01-01-2023 Note Patient Outreach (AM [facility] ADINA DAVID ([id number]) 1955 M Date Time Provider Department 01/01/23 MADDIE WHITE [facility] During your visit today, we recorded the following information about you: Maddie White RN 01/01/2023 2:18 PM Signed TRANSITION CARE MANAGEMENT (TCM) FOLLOW-UP NOTE Provider Action/FYI Chart reviewed. Per chart notes for [facility], pt has been admitted to inpatient at [facility]. No further follow-up at this time. Summary: Pt discharged from [facility] on 12/11/22. Admitted for: SOB, fatigue-Chronic pulmonary embolism Signature Maddie White RN January 01, 2023 Allergies As of Date: 01/01/2023 Noted Allergy Reaction DOXYCYCLINE 07/17/2021 5 - Intolerance Comments: Rash, diarrhea PENICILLIN 02/22/2017 4 - Hives PENICILLIN V POTASSIUM 12/20/2021 14 - Other: See Comments Date Reviewed: 12/19/2022 Reviewed by: Halle Dale MD - Fully Assessed Reason for Visit: Transition Of Care [4074] Cmt: TCM follow-up Prescriptions as of 01/01/2023 - Doxepin (SILENOR) 3 mg tab Take 1 tablet by mouth daily at bedtime. - oloqzrcnfje-tmjnxmasv-khrmfgdx (TRELEGY ELLIPTA) 100-62.5-25 mcg inhalation powder Inhale 1 Puff as instructed once daily. - metoprolol tartrate, short acting, (LOPRESSOR) 25 mg tablet Take half a tablet by mouth twice daily. - enoxaparin (LOVENOX) 40 mg/0.4 mL Inject 0.4 mL subcutaneously every 24 hours. - hydroxyurea (HYDREA) 500 mg capsule Take 2 capsules by mouth once daily. - sodium bicarbonate 650 mg tablet Take 1 tablet by mouth twice daily. - roflumilast (DALIRESP) 500 mcg tab Take 1 tablet by mouth every afternoon. - omeprazole (PRILOSEC) 40 mg capsule Take 1 capsule by mouth once daily - zolpidem (AMBIEN) 5 mg tablet Take 1 tablet by mouth at bedtime as needed for up to 90 days. - evolocumab (REPATHA SURECLICK) 140 mg/mL pen injector Inject 140 mg subcutaneously every 2 weeks. - magnesium oxide (MAG-OX) 400 mg (241.3 mg magnesium) tablet Take 0.5 tablets by mouth once daily. 0.5 tablet - CPAP - BABY ASPIRIN ORAL Take 81 mg by mouth once daily. - ergocalciferol 50,000 unit capsule (VITAMIN D2, DRISDOL) once every month. Problem List As Of Date 01/01/2023 Noted Resolved Multiple lipomas [D17.9] GERD (gastroesophageal reflux disease) [K21.9] H/O resection of large bowel [Z90.49] 04/14/2004 Essential hypertension [I10] Renal cancer, right (HCC) [C64.1] 04/29/2017 CLL (chronic lymphocytic leukemia) (HCC) [C91.1*06/13/2017 Iron deficiency anemia [D50.9] 06/13/2017 Iron adverse reaction [T45.4X5A] 10/24/2017 Frequency of urination [R35.0] 03/19/2018 02/11/2019 Nocturia [R35.1] 03/19/2018 BPH (benign prostatic hyperplasia) [N40.0] 10/05/2018 History of right nephrectomy [Z90.5] 10/05/2018 NSTEMI (non-ST elevated myocardial infarction) *10/24/2018 Stage 2 chronic kidney disease [N18.2] 11/10/2018 Post PTCA [Z98.61] 11/25/2018 S/P drug eluting coronary stent placement [Z95.*11/25/2018 GI bleed [K92.2] 12/31/2018 01/11/2019 Hypertriglyceridemia [E78.1] 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.* 01/11/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] DENG (acute kidney injury) (HCC) [N17.9] 01/07/2019 Facial numbness [R20.0] 03/31/2019 04/03/2019 Leukocytosis [D72.829] 03/31/2019 Essential thrombocythemia (HCC) [D47.3] 03/31/2019 CKD (chronic kidney disease) stage 3, GFR 30-59*03/31/2019 Closed left subtrochanteric femur fracture (HCC*07/22/2020 07/27/2020 Deep vein thrombosis (DVT) of femoral vein of l*03/14/2021 Leg swelling [M79.89] 03/14/2021 CIRA on CPAP [G47.33] 05/01/2021 Severe anemia [D64.9] 05/02/2021 Severe protein-calorie malnutrition (HCC) [E43] 05/09/2021 Acute blood loss anemia [D62] 05/16/2021 COVID-19 virus infection [U07.1] 05/16/2021 Obesity, Class I, BMI 30-34.9 [E66.9] 05/28/2021 Vitamin D deficiency [E55.9] 07/17/2021 Iron deficiency anemia due to chronic blood los*02/19/2022 SOB (shortness of breath) [R06.02] 11/27/2022 Lightheadedness [R42] 11/27/2022 Pulmonary embolism, unspecified chronicity, uns*12/01/2022 Coronary artery disease involving [place]*12/02/2022 Other emphysema (HCC) [J43.8] 12/02/2022 Chronic deep vein thrombosis (DVT) of proximal *12/02/2022 AVM (arteriovenous malformation) [Q27.30] 12/02/2022 History of gastrointestinal bleeding [Z87.19] 12/02/2022 Tachycardia [R00.0] 12/03/2022 Elevated troponin [R77.8] 12/03/2022 12/11/2022 Pulmonary nodules [R91.8] 12/05/2022 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 medical conditio*12/09/2022 Personal history of DVT (deep vein thrombosis) *12/11/2022 Anticoagulation management encounter [Z51.81, Z*12/11/2022 Primary insomnia [F51.01] 12/13/2022 Encounter Status:Closed by MADDIE WHITE on 01/01/23 [facility] 12-30-2022 Miscellaneous Notes Halle Dale MD, [facility] received a referral for [facility] services. Frankie is currently inpatient at [facility]. At this time we will be canceling the referral. Thank you, Jenifer Lloyd LPN [facility]missions Intake Nurse documented in this encounter [facility] 12-24-2022 Miscellaneous Notes Received consult from Dr. Dale regarding patient's weight loss and poor appetite. Called and spoke to patient's daughter, who states patient is currently admitted to [facility] with the potential of being discharged to a rehab facility. I explained patient would be followed by an RD at rehab. Family is interested hot meal delivery if patient is able to go back home. Provided my contact information for daughter to follow up once patient is d/c from rehab. Marley Falk RD documented in this encounter [facility] 12-23-[address] Dale, Thank you for the referral for Adina to [facility] home care services with [facility]. In reviewing your office note, he is has respiratory symptoms that could use nursing intervention and on going assessment. Would you be agreeable to adding SN to the order as well as the diagnosis the CLL (chronic lymphocytic leukemia) (HCC)? Thank you, Sue Raygoza LPN Dr. Dale, Thank you for the referral for Adina to [facility] care services with [facility]. In reviewing your office note, he is has respiratory symptoms that could use nursing intervention and on going assessment. Would you be agreeable to adding SN to the order as well as the diagnosis the CLL (chronic lymphocytic leukemia) (HCC)? Thank you, Sue Raygoza LPN documented in this encounter [facility] 12-23-2022 Note . MICRO - Microbiology PROCEDURE: Blood Culture (bacterial) [*1] SOURCE: Blood BODY SITE: COLLECTED DATE/TIME: 12/19/2022 11:32 EDT RECEIVED DATE/TIME: 12/19/2022 15:07 EDT START DATE/TIME: 12/19/2022 15:07 EDT FREE TEXT SOURCE: FINAL REPORTS Final Report [] Verified Date/Time/Personnel: 12/23/2022 09:19 EDT Streptococcus pneumoniae Isolated from aerobe and anaerobe bottles. Unable to perform sensitivity testing due to the fastidious nature of the organism. This organism causes a reportable disease. Infection Control has been notified. PRELIMINARY REPORTS Preliminary Report [] Verified Date/Time/Personnel: 12/21/2022 08:05 EDT Streptococcus pneumoniae Isolated from aerobe and anaerobe bottles. Final report to follow. This organism causes a reportable disease. Infection Control has been notified. Preliminary Report [] Verified Date/Time/Personnel: 12/19/2022 15:59 EDT Culture has been received in lab and is no growth to date. Routine cultures are held for 5 days. STAINS GSANA [] Verified Date/Time/Personnel: 12/20/2022 08:26 EDT Gram Positive Cocci in pairs GSAER [] Verified Date/Time/Personnel: 12/20/2022 04:31 EDT Gram Positive Cocci in pairs Performing Locations *1: This test was performed at: [facility], [address] [place] [address], [id number] , [facility] ([place]) 12-23-2022 Note . MICRO - Microbiology PROCEDURE: Blood Culture (bacterial) [*1] SOURCE: Blood BODY SITE: COLLECTED DATE/TIME: 12/19/2022 11:32 EDT RECEIVED DATE/TIME: 12/19/2022 15:07 EDT START DATE/TIME: 12/19/2022 15:07 EDT FREE TEXT SOURCE: FINAL REPORTS Final Report [] Verified Date/Time/Personnel: 12/23/2022 09:19 EDT Streptococcus pneumoniae Isolated from aerobe and anaerobe bottles. Unable to perform sensitivity testing due to the fastidious nature of the organism. This organism causes a reportable disease. Infection Control has been notified. PRELIMINARY REPORTS Preliminary Report [] Verified Date/Time/Personnel: 12/21/2022 08:03 EDT Streptococcus pneumoniae Isolated from aerobe and anaerobe bottles. TODD to follow This organism causes a reportable disease. Infection Control has been notified. Preliminary Report [] Verified Date/Time/Personnel: 12/19/2022 15:59 EDT Culture has been received in lab and is no growth to date. Routine cultures are held for 5 days. STAINS GSANA [] Verified Date/Time/Personnel: 12/20/2022 05:57 EDT Gram Positive Cocci in pairs GSAER [] Verified Date/Time/Personnel: 12/20/2022 04:31 EDT Gram Positive Cocci in pairs Performing Locations *1: This test was performed at: [facility], [address] [place] [address], [facility] , [facility] ([place]) 12-21-2022 Note . MICRO - Microbiology PROCEDURE: Urine Culture [*1] SOURCE: Urine, Clean Catch BODY SITE: COLLECTED DATE/TIME: 12/19/2022 14:31 EDT RECEIVED DATE/TIME: 12/19/2022 19:07 EDT START DATE/TIME: 12/19/2022 19:07 EDT FREE TEXT SOURCE: FINAL REPORTS Final Report [] Verified Date/Time/Personnel: 12/21/2022 07:34 EDT No growth at 48 hours. PRELIMINARY REPORTS Preliminary Report [] Verified Date/Time/Personnel: 12/20/2022 08:53 EDT No growth to date Performing Locations *1: This test was performed at: [facility], [address] [place] [address], [place], [id number] , [facility] ([place]) 12-19-2022 History of Present illness Narrative PROGRESS NOTE 12/18/2022 Chief Complaint: Mr. Adina David is here to follow up his hematological conditions (CLL, MPN, VTE, bleeding) Interval History: Here to follow up. Accompanied by daughter. He was recently hospitalized at [facility] due to acute respiratory failure. PET CT with low level FDG activity in [place], intrathoracic LAD low to mild FDG, with low level in the mild right basilar opacities. ID was consulted and infectious work-up was conducted which was only positive for rhinovirus. Fungal and bacterial work-up was negative. Symptoms thought to be unlikely infectious in etiology as it is extremely unlikely for patient to have had symptomatic rhinovirus for the past 3 months. Outpatient oncologist inquired about possibility of tissue biopsy. Pulmonology was consulted for EBUS with biopsy, but stated it was not possible given small size of nodules. Lymphoma service was contacted who recommended repeat imaging after infectious workup complete and follow-up with Primary Oncologist. He will likely require initiating treatment of his CLL, but not in the acute setting. He is discharged home, moved in with daughter. He's doing poorly, struggle with breathing. Daughter reports that he spiked fever up to 104 over the weekend. Scheduled for bronchoscopy with his primary autopsy pathologist at [facility] tomorrow. He's barely eating, loosing weight, failure to thrive. Review of Systems Constitutional: Positive for fatigue and unexpected weight change. Negative for activity change, appetite change, chills, diaphoresis and fever. HENT: Negative for mouth sores, sore throat, trouble swallowing and voice change. Eyes: Negative for photophobia and visual disturbance. Respiratory: Positive for cough and shortness of breath. Negative for chest tightness, wheezing and stridor. Cardiovascular: Negative for chest pain, palpitations and leg swelling. Gastrointestinal: Positive for nausea. Negative for abdominal distention, abdominal pain, anal bleeding, blood in stool, constipation, diarrhea, rectal pain and vomiting. Endocrine: Negative for cold intolerance and heat intolerance. Genitourinary: Negative for decreased urine volume, difficulty urinating, dysuria, enuresis, flank pain, frequency, genital sores, hematuria and urgency. Nocturia and incontinence Musculoskeletal: Negative for arthralgias, back pain, gait problem, joint swelling, myalgias, neck pain and neck stiffness. Skin: Negative for color change, pallor, rash and wound. Neurological: Positive for numbness. Negative for dizziness, tremors, seizures, syncope, facial asymmetry, speech difficulty, light-headedness and headaches. Hematological: Negative for adenopathy. Does not bruise/bleed easily. Psychiatric/Behavioral: Positive for agitation, behavioral problems, dysphoric mood and sleep disturbance. 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 glover Diverticulitis of intestine with perforation 2004 WITH FISTULA Essential hypertension FHx: colon cancer Mother GERD (gastroesophageal reflux disease) HAS GI - SLEZAK History of chickenpox History of scarlet fever History of spinal fracture 1973 L3-4 Hx of squamous cell carcinoma Hydrocele in adult Hypertriglyceridemia Hypokalemia 03/31/2019 Hypomagnesemia 03/31/2019 Leukocytosis 03/31/2019 Lipoma of back NSTEMI (non-ST elevated myocardial infarction) (HCC) Other emphysema (HCC) 12/02/2022 Personal history of skin cancer bcc (r shoulder) 2015, scc (l lateral lower leg) 2018 Renal cancer (HCC) Stage 3 Sleep apnea CPAP ALLERGIES Allergen Reactions Doxycycline Intolerance Rash, diarrhea Penicillin Hives Penicillin V Potass* Other: See Comments Current Outpatient Medications Medication Sig Dispense Refill Doxepin (SILENOR) 3 mg tab Take 1 tablet by mouth daily at bedtime. 30 tablet 0 metoprolol tartrate, short acting, (LOPRESSOR) 25 mg tablet Take half a tablet by mouth twice daily. 30 tablet 1 enoxaparin (LOVENOX) 40 mg/0.4 mL Inject 0.4 mL subcutaneously every 24 hours. 12 mL 0 hydroxyurea (HYDREA) 500 mg capsule Take 2 capsules by mouth once daily. 60 capsule 0 sodium bicarbonate 650 mg tablet Take 1 tablet by mouth twice daily. 60 tablet 1 roflumilast (DALIRESP) 500 mcg tab Take 1 tablet by mouth every afternoon. omeprazole (PRILOSEC) 40 mg capsule Take 1 capsule by mouth once daily 90 capsule 3 zolpidem (AMBIEN) 5 mg tablet Take 1 tablet by mouth at bedtime as needed for up to 90 days. 30 tablet 2 evolocumab (REPATHA SURECLICK) 140 mg/mL pen injector Inject 140 mg subcutaneously every 2 weeks. 4 Each 5 magnesium oxide (MAG-OX) 400 mg (241.3 mg magnesium) tablet Take 0.5 tablets by mouth once daily. 0.5 tablet 90 tablet 3 BABY ASPIRIN ORAL Take 81 mg by mouth once daily. ergocalciferol 50,000 unit capsule (VITAMIN D2, DRISDOL) once every month. abzjmbdqdpt-qsitmules-suozvvlb (TRELEGY ELLIPTA) 100-62.5-25 mcg inhalation powder Inhale 1 Puff as instructed once daily. (Patient not taking: Reported on 12/13/2022) 30 Each 1 CPAP (Patient not taking: Reported on 12/13/2022) No current facility-administered medications for this visit. Social History: in 11/2020 from breast cancer. He lives by himself. Daughter is around, 2 grandchildren. Retired. Former smoker, quit in 1990. Family History: Mother of colon cancer at age 85. No siblings, 1 daughter, w/o malignancy. I have confirmed and edited as necessary, the PFSH and ROS obtained by myself BP 133/64 Pulse 118 Temp (Src) 98.1 (Temporal) Resp 18 Ht 5' 10 (1.78m) Wt 179 lb 14.4 oz (81.6kg) SpO2 98% BMI 25.81 kg/(m^2). Physical Exam Constitutional: General: He is not in acute distress. Appearance: He is not ill-appearing, toxic-appearing or diaphoretic. Comments: In wheelchair, disheveled, frail HENT: Head: Normocephalic and atraumatic. Mouth/Throat: Mouth: Mucous membranes are moist. Eyes: General: No scleral icterus. Conjunctiva/sclera: Conjunctivae normal. Cardiovascular: Rate and Rhythm: Normal rate and regular rhythm. Pulses: Normal pulses. Heart sounds: No murmur heard. No friction rub. No gallop. Pulmonary: Comments: Coarse breath sounds bilaterally Abdominal: General: Abdomen is flat. Bowel sounds are normal. There is no distension. Palpations: Abdomen is soft. There is no mass. Tenderness: There is no abdominal tenderness. There is no guarding or rebound. Musculoskeletal: General: No swelling or deformity. Normal range of motion. Cervical back: Normal range of motion and neck supple. Right lower leg: No edema. Left lower leg: No edema. Lymphadenopathy: Cervical: No cervical adenopathy. Skin: General: Skin is warm and dry. Coloration: Skin is not jaundiced. Findings: No bruising or rash. Neurological: General: No focal deficit present. Mental Status: He is alert and oriented to person, place, and time. Psychiatric: Mood and Affect: Mood normal. Behavior: Behavior normal. Labs: Component Latest Ref Rng & Units 12/17/2022 WBC 3.70 - 11.00 k/uL 54.79 (H) RBC 4.20 - 6.00 m/uL 2.24 (L) Hemoglobin 13.0 - 17.0 g/dL 7.6 (L) Hematocrit 39.0 - 51.0 % 25.6 (L) MCV 80.0 - 100.0 fL 114.3 (H) MCH 26.0 - 34.0 pg 33.9 MCHC 30.5 - 36.0 g/dL 29.7 (L) RDW-CV 11.5 - 15.0 % 16.8 (H) Platelet Count 150 - 400 k/uL 508 (H) MPV 9.0 - 12.7 fL 10.2 Neut% % 6.0 Abs Neut (ANC) 1.45 - 7.50 k/uL 3.29 Lymph% % 81.0 Abs Lymph 1.00 - 4.00 k/uL 44.38 (H) [place]% % 4.0 Abs [place] <0.87 k/uL 2.19 (H) Eosin% % 0.0 Abs Eosin <0.46 k/uL 0.00 Baso% % 0.0 Abs Baso <0.11 k/uL 0.00 Component Latest Ref Rng & Units 12/17/2022 Protein, Total 6.3 - 8.0 g/dL 6.7 Albumin 3.9 - 4.9 g/dL 3.6 (L) Calcium 8.5 - 10.2 mg/dL 9.5 Bilirubin, Total 0.2 - 1.3 mg/dL 0.4 Alkaline Phosphatase 38 - 113 U/L 153 (H) AST 14 - 40 U/L 39 ALT 10 - 54 U/L 37 Glucose 74 - 99 mg/dL 101 (H) BUN 9 - 24 mg/dL 26 (H) Creatinine 0.73 - 1.22 mg/dL 1.98 (H) Sodium 136 - 144 mmol/L 130 (L) Potassium 3.7 - 5.1 mmol/L 3.7 Chloride 97 - 105 mmol/L 96 (L) CO2 22 - 30 mmol/L 17 (L) Anion Gap 9 - 18 mmol/L 17 eGFR >=60 mL/min/1.73m 36 (L) Imaging: NM PET/CT on 12/06/2022 HEAD/NECK: * No FDG avid neoplastic process. CHEST: * Diffuse bronchial wall thickening associated with low-level FDG activity and heterogeneous mild right basilar opacities. Constellation of findings are probably related to a combination of atelectasis and airway inflammation. * Low level FDG activity in the region of a 6 mm central left upper lobe pulmonary nodule is difficult to distinguish from adjacent airway/vascular activity. Advise continued CT surveillance. * Additional subcentimeter pulmonary nodules without increased FDG activity may be below resolution of PET. * Intrathoracic lymphadenopathy with low level and mild FDG activity may in part be reactive and/or related to known CLL. * Previous left lung base consolidative opacities have resolved. ABDOMEN/PELVIS: * Subcentimeter mildly FDG avid left inguinal lymph node may be reactive. * Mildly enlarged mesenteric root lymph nodes with FDG activity below blood pool levels. * Splenomegaly without hypersplenism. BONES/EXTREMITIES: * No suspicious FDG avid osseous lesion. Bilateral leg venous duplex on 12/02/2022 RIGHT SIDE - DEEP VEINS Negative for acute deep vein thrombosis. RIGHT SIDE - SUPERFICIAL VEINS Chronic post-thrombotic change in the small saphenous vein. LEFT SIDE - DEEP VEINS Negative for acute deep vein thrombosis. Chronic post-thrombotic change in the common femoral vein, femoral vein and popliteal vein. Only segments visualized of the posterior tibial veins and peroneal veins. CT C/A/P w/ IV contrast on 12/01/2022 Likely chronic right lower lobe segmental pulmonary embolism. Development of mild basilar and dependent groundglass opacities with some volume loss, suggesting atelectasis, although superimposed edema, inflammation or hemorrhage is not excluded. Additional new consolidative opacities in the left lung base suspicious for confluent involvement of the same process versus infectious/inflammatory process such as aspiration pneumonitis. Radiographic follow-up is recommended.. Overall increased size of multiple pulmonary nodules as described. Worsening mediastinal and hilar lymphadenopathy. These could be related to prior history of CLL or renal carcinoma. No acute process. Enlarged mesenteric root lymph nodes, as described, similar to 01/23/2021. No local recurrence status post right nephrectomy. Pathology: none Assessment and Plan: Mr. Adina David is a pleasant 67 yo M with multiple comorbidity including clear cell RCC, CLL, MPN, DVT, CAD, CKD III and chronic anemia, who presents to follow up. 1. Chronic macrocytic anemia - Hb baseline 8-10. Causes of chronic anemia is multifactorial, including CKDIII, GIB, iron deficiency, CLL, MPN on hydrea - drop in H/H since 06/2022 when he resumed Eliquis 2.5 mg BID for new DVT. Required pRBC transfusion on 08/16, 08/28, and 10/10. He underwent endoscope at [facility] on 10/09/2022, found bleeders s/p endoscopic hemastatic treatment. Monitor blood counts monthly, transfusion support as needed. Avoid iron infusion due to MPN. Hb 7.6 on 12/17/2022, arrange 1 unit pRBC tranfusion 2. ccRCC - diagnosed in 05/2017 - s/p right radical nephrectomy, clear cell RCC, WHO/ISUP grade 2, with renal vein invasion and renal vein thrombosis, 9 cm in size, pT3a pNx - no adjuvant treatment - CT C/A/P from 12/01/2022 showed no local recurrence status post right nephrectomy. Enlarged mesenteric lymph nodes, mediastinal/hilar lymph nodes, and lung opacities are unlikely to be from recurrent ccRCC. Continue surveillance. 3. Acute hypoxemic respiratory failure - CT chest on 12/01/2022 showed ground glass changes likely secondary to TRALI or infection. Chronic RLL PE - scheduled for outpatient bronch at [facility] tomorrow. 4. CLL - diagnosed in 04/2017, peripheral blood flow showed a CD5-positive B-cell lymphoproliferative disorder. The immunophenotype is consistent with CLL/SLL. Su stage I, on watchful waiting - he does have increasing constitutional B symptoms lately, which could be from infection or other etiology. PET/CT from 12/06/2022 was reviewed showing intrathoracic lymphadenopathy with low level FDG uptake, subcentimeter inguinal nodes with mild FDG uptake which might be reactive, splenomegaly measuring 14.9 cm. Labs are overall stable, WBC 54.79, Hb 7.6, platelet 508, lymphocyte 44.38 - he has signs and symptoms concerning for active infection (productive cough, spiking fever of 104 2 days ago). He should completes bronch and have acute infection addressed before initiating CLL treatment. 5. Essential thrombocythemia - platelet count over 1000K, without clear secondary causes - CALR no variant detected; JAK2 V617F not detected; BCR-ABL not detected. MPL-a sequence change of c.1502T>C in exon 10 was detected at approximately 18% allelic proportion; a sequence change of c. 1514G>A ([id number]) in exon 10 was detected at approximately 16% allelic proportion - he was started on hydrea since 04/2020, 500 mg BID - labs from 12/17/2022 was reviewed WBC 54.79, Hb 7.6, Hct 25.6, MCV 114.3, platelet 508 K, ANC 3.29, lymphocyte 44.38. Continue hydrea at the same dose, along with baby ASA and lovenox 40 mg daily 6. DVT - 03/14/2021, DVT of indeterminate age in the common femoral vein throughout. Possibly provoked, as he had left femur subtrochanteric fracture s/p internal fixation with persistent swelling postop - on Eliquis 5 mg BID since 03/2021. Dose reduce to 2.5 mg BID in 05/2021 due to renal dysfunction and major GIB. D/C Eliquis in 09/2021. 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 He's back on Eliquis 2.5 mg BID since 06/3022, compliant but with new GIB s/p endoscopic hemostatic treatment. - Repeat b/l LE DVT scan on 12/04/2022 showed chronic post-thrombotic changes. CT PE on 12/01/2022 showed chronic RLL segmental PE. He is now on lovenox 40 mg daily 7. BPH - LUTS from BPH. - PSA 8.67. - prior prostate biopsy showed no evidence of cancer. - Being followed and managed by urology 8. GIB - admitted to [facility] in 04/2021 with Hb 4.8, transfused 7 units pRBC He underwent EGD and colonoscopy were normal. Capsule endoscopy reviewed bleeding lesions. Push enteroscopy done April 2021 which showed bleeding AVMs - Currently no active bleeding. He follows GI. Octreotide was denied by insurance. If bleed again will need double balloon scope. - dropping H/H since 06/2022 when he resumed Eliquis 2.5 mg BID. He denied overt bleeding but required pRBC transfusion on 08/16, 08/28, 10/10. He underwent endoscope at [facility] on 10/09/2022, found bleeders s/p endoscopic hemostatic treatment. Count check monthly, transfusion as needed. - Avoid further iron supplement due to his MPN. Mild iron deficiency is expected and allowed. 9. Insomnia and behavior problem - I declined his request to double the dose of ambien, placed referral to sleep medicine, also encourage him to discuss insomnia management with PCP - depressed, agitated, frustrated about his health issues. Encourage him to see psychology - I offered to arrange second opinion. He refused RTC in 1 month. Some elements copied from my notes 11/19/2022, including the physical exam completed in entirety today, have been updated where appropriate. All reflect current medical decision making from today, 12/19/2022 Medical Decision Making: Problems: High: Illness/injury w/ threat to life/body function Data: Unique test result(s) reviewed: 3+ Unique test(s) ordered: 3+ Risk: Moderate: Moderate risk from testing/treatment and Drug management Medical Decision Making Level: 4 - Moderate documented in this encounter [facility] 12-19-2022 Miscellaneous Notes Patient has been notified of recent PSA results and has verbalized his understanding. Pratibha De La Rosa MA documented in this encounter [facility] 12-19-2022 Miscellaneous Notes Left message for pt to call back office Pantera Irwin MA ----- Message from Loy Mcallister MD sent at 12/18/2022 6:30 PM EDT ----- Notify patient PSA has come down to 3.18. documented in this encounter [facility] 12-13-2022 Miscellaneous Notes Addended by: NAKUL GALLEGOS on: 12/13/2022 01:05 PM Modules accepted: Orders documented in this encounter [facility] 12-13-2022 Note HNO ID: [id number] Author: Nakul Gallegos MD Service: ? Author Type: Physician Type: Progress Notes Filed: 12/13/2022 12:59 PM Note Text: [facility] Date: December 13, 2022 Patient Name: Adina David Adina David is a 67 year old yr old male, presents to the [facility] for evaluation of CIRA and insomnia. Patient has a history of CIRA diagnosed in 2018. Patient has been on CPAP since that time, but he is having significantly difficulty using CPAP. Patient has a severe mask leak, and had to stop CPAP use recently. Patient has also recently developed insomnia symptoms, and is having difficulty withsleep at this time as well. When patient first started CPAP, he had difficulties for the first 6-8 months, but began wearing for periods of time during the day tize. After his first 8 months of treatment, he began to do better with it. Patient would still have occasional difficulties and take off during the night, but on most nights, he was able to use the entire night. Patient does use heated humidity, and feels it is helpful. Patient began first having difficulties in early 2022 - apr to May or so. This coincides with onset of a respiratory illness. The patient has developed chronic cough symptoms. He also developed an upper respiratory infection, and this lasted for several months. Patient had developed worsening cough after this. His cough symptoms worsened around this time, and have been so severe that he broke ribs in the past. Patient was treated with antibiotics and steroids, without much improvement. Patient had PFT done in 07/2022 which showed moderately severe Obstructive disease. Patient is an active marijuana smoker, for over 50 years. Patient did smoke cigarettes for approximately. Patient has also developed insomnia symptoms alsong the time that these symptoms have occurred. Patient currently reports that he is averaging 3 hours of sleep per night. Patient has noted that after a HS 11:00 PM; ESL on average 2-3 hours > During this time the patient will have coughing issues, and these tend to be worsened by positional changes > Patient will usually listen to talk radio while trying to fall asleep. > Patient does not watch TV, or interact with tablets or phones after HS Patient will usually wake up around 1:30, 3:00 and 4:30 to use bathroom. Patient is able to fall asleep usually within 30 min. The patient will usually watch you tube/read google while on the toilet Patient us usually up for the day around 6:30ish Patient does not take naps during the day PRIMARY CARE PHYSICIAN: Ulises Ramos DO REASON FOR CONSULT: Patient presents with: Sleep Apnea REQUESTING PHYSICIAN: Ulises Ramos, My final recommendations will be communicated to the requesting health care provider by way of the shared medical record for internal providers or letter via the [employer] Postal Service for external providers. Patient Entered Questionnaires: PROMIS Global Health - (T-Scores - the mean of general population = 50. Five points is a clinically meaningful difference.) 05/31/2022 05/31/2022 12/05/2021 Physical T-Score 29.6 29.6 34.9 Mental T-Score 36.3 36.3 - Modified Medical Research [place] Dyspnea Scale (MMRC) I am too breathless to leave the house or I am breathless when dressing 4 Daily cough: Yes Daily Sputum: Yes IMMUNIZATIONS: Immunization History Administered Date(s) Administered COVID-19 original vaccine, age 12+ yr, monovalent (ikeGPS - GAYLE TOP) 07/24/2021 COVID-19 original vaccine, full dose, monovalent (MODERNA) 06/21/2020 07/19/2020 03/13/2021 COVID-19 vaccine, age 12+ yr, bivalent (MODERNA) 03/05/2022 influenza (HD-IIV3) vaccine, age 65+ yr, high dose, PF (FLUZONE HIGH-DOSE) 01/18/2019 influenza (HD-IIV4) vaccine, age 65+ yr, high dose, quadrivalent, PF (FLUZONE HIGH-DOSE) 01/18/2020 05/22/2021 influenza (IIV3) vaccine, age 3+ yr, trivalent (AFLURIA, FLULAVAL, FLUVIRIN, FLUZONE) 01/31/2017 influenza (IIV4) vaccine, age 6 mo - 64 yr, quadrivalent, PF (AFLURIA, FLUARIX, FLULAVAL, FLUZONE) 01/20/2018 influenza (ccIIV4) vaccine, age 6+ mo, quadrivalent, PF (FLUCELVAX) 02/09/2017 pneumococcal (PCV13) vaccine, 13 valent (PREVNAR 13) 01/19/2020 pneumococcal (PCV20) vaccine, 20 valent (PREVNAR 20) 03/15/2022 pneumococcal (PPV23) vaccine, 23 valent (PNEUMOVAX 23) 02/27/2017 tuberculin skin test, unspecified formulation 07/27/2020 08/06/2020 zoster (RZV) vaccine, recombinant (SHINGRIX) 07/12/2021 10/16/2021 zoster (ZVL) vaccine, live (ZOSTAVAX) 09/17/2015 REVIEW OF SYSTEMS: GEN: Weight loss Yes - Patient having some difficulty after cancer diagnosis, Night sweats chronic since treatment for leukemia, Fever no. NEURO: Syncope no, Seizure no. EYES: [place], Cataracts no. NOSE: Nasal congestionno, epistaxis no. GI: (more content not included)... [facility] 12-13-2022 History of Present illness Narrative Images from the original note were not included. [facility] Date: December 13, 2022 Patient Name: Adina David Adina David is a 67 year old yr old male, presents to the [facility] for evaluation of CIRA and insomnia. Patient has a history of CIRA diagnosed in 2018. Patient has been on CPAP since that time, but he is having significantly difficulty using CPAP. Patient has a severe mask leak, and had to stop CPAP use recently. Patient has also recently developed insomnia symptoms, and is having difficulty withsleep at this time as well. When patient first started CPAP, he had difficulties for the first 6-8 months, but began wearing for periods of time during the day tize. After his first 8 months of treatment, he began to do better with it. Patient would still have occasional difficulties and take off during the night, but on most nights, he was able to use the entire night. Patient does use heated humidity, and feels it is helpful. Patient began first having difficulties in early 2022 - apr to May or so. This coincides with onset of a respiratory illness. The patient has developed chronic cough symptoms. He also developed an upper respiratory infection, and this lasted for several months. Patient had developed worsening cough after this. His cough symptoms worsened around this time, and have been so severe that he broke ribs in the past. Patient was treated with antibiotics and steroids, without much improvement. Patient had PFT done in 07/2022 which showed moderately severe Obstructive disease. Patient is an active marijuana smoker, for over 50 years. Patient did smoke cigarettes for approximately. Patient has also developed insomnia symptoms alsong the time that these symptoms have occurred. Patient currently reports that he is averaging 3 hours of sleep per night. Patient has noted that after a HS 11:00 PM; ESL on average 2-3 hours > During this time the patient will have coughing issues, and these tend to be worsened by positional changes > Patient will usually listen to talk radio while trying to fall asleep. > Patient does not watch TV, or interact with tablets or phones after HS Patient will usually wake up around 1:30, 3:00 and 4:30 to use bathroom. Patient is able to fall asleep usually within 30 min. The patient will usually watch you tube/read google while on the toilet Patient us usually up for the day around 6:30ish Patient does not take naps during the day PRIMARY CARE PHYSICIAN: Ulises Ramos DO REASON FOR CONSULT: Patient presents with: Sleep Apnea REQUESTING PHYSICIAN: Ulises Ramos DO My final recommendations will be communicated to the requesting health care provider by way of the shared medical record for internal providers or letter via the [employer] Postal Service for external providers. Patient Entered Questionnaires: PROMIS Global Health - (T-Scores - the mean of general population = 50. Five points is a clinically meaningful difference.) 05/31/2022 05/31/2022 12/05/2021 Physical T-Score 29.6 29.6 34.9 Mental T-Score 36.3 36.3 - Modified Medical Research [place] Dyspnea Scale (MMRC) I am too breathless to leave the house or I am breathless when dressing 4 Daily cough: Yes Daily Sputum: Yes IMMUNIZATIONS: Immunization History Administered Date(s) Administered COVID-19 original vaccine, age 12+ yr, monovalent (ikeGPS - GAYLE TOP) 07/24/2021 COVID-19 original vaccine, full dose, monovalent (MODERNA) 06/21/2020 07/19/2020 03/13/2021 COVID-19 vaccine, age 12+ yr, bivalent (MODERNA) 03/05/2022 influenza (HD-IIV3) vaccine, age 65+ yr, high dose, PF (FLUZONE HIGH-DOSE) 01/18/2019 influenza (HD-IIV4) vaccine, age 65+ yr, high dose, quadrivalent, PF (FLUZONE HIGH-DOSE) 01/18/2020 05/22/2021 influenza (IIV3) vaccine, age 3+ yr, trivalent (AFLURIA, FLULAVAL, FLUVIRIN, FLUZONE) 01/31/2017 influenza (IIV4) vaccine, age 6 mo - 64 yr, quadrivalent, PF (AFLURIA, FLUARIX, FLULAVAL, FLUZONE) 01/20/2018 influenza (ccIIV4) vaccine, age 6+ mo, quadrivalent, PF (FLUCELVAX) 02/09/2017 pneumococcal (PCV13) vaccine, 13 valent (PREVNAR 13) 01/19/2020 pneumococcal (PCV20) vaccine, 20 valent (PREVNAR 20) 03/15/2022 pneumococcal (PPV23) vaccine, 23 valent (PNEUMOVAX 23) 02/27/2017 tuberculin skin test, unspecified formulation 07/27/2020 08/06/2020 zoster (RZV) vaccine, recombinant (SHINGRIX) 07/12/2021 10/16/2021 zoster (ZVL) vaccine, live (ZOSTAVAX) 09/17/2015 REVIEW OF SYSTEMS: GEN: Weight loss Yes - Patient having some difficulty after cancer diagnosis, Night sweats chronic since treatment for leukemia, Fever no. NEURO: Syncope no, Seizure no. EYES: [place], Cataracts no. NOSE: Nasal congestionno, epistaxis no. GI: Constipation no, Heartburn no, malnutrition (<80% of predicted body weight) not present. ENDO: Polyuria no, but patient does have frequent nocturia, heat/cold intolerance no. CARD: Chest pain No : Urinary retention Yes DERM: Skin rash or lesions History of skin Ca. MSK: Joint swelling no. ARTURO: Easy bruising no. KYM INDEX: A . FEV1 >64% : 0 pts B. Six Minute Walk Test NA C. MRC Dyspnea Index Index 4-5: 3 pts D. 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 glover Diverticulitis of intestine with perforation 2004 WITH FISTULA Essential hypertension FHx: colon cancer Mother GERD (gastroesophageal reflux disease) HAS GI - SLEZAK History of chickenpox History of scarlet fever History of spinal fracture 1973 L3-4 Hx of squamous cell carcinoma Hydrocele in adult Hypertriglyceridemia Hypokalemia 03/31/2019 Hypomagnesemia 03/31/2019 Leukocytosis 03/31/2019 Lipoma of back NSTEMI (non-ST elevated myocardial infarction) (HCC) Other emphysema (HCC) 12/02/2022 Personal history of skin cancer bcc (r shoulder) 2015, scc (l lateral lower leg) 2018 Renal cancer (HCC) Stage 3 Sleep apnea CPAP PAST SURGICAL HISTORY Procedure Laterality Date BOWEL RESECTION HX 2004 Partial COLONOSCOPY 01/07/2019 hemorrhoids and diverticulosis CYSTOSCOPY 2004 2004 EGD 11/2019 x3 EGD 12/31/2018 Rhodes's, Duodenal erosions. Dr. Enio Degroot. HEMORRHOID SURGERY HX 1999 LAP NEPHRECTOMY Right 2018 DR. MCDONALD PAST SURGICAL HISTORY OF hydrocel PAST SURGICAL HISTORY OF 07/23/2020 left femur REPAIR EPIGASTRIC HERNIA,REDUC STENT PLACEMENT 2018 MARTIN LAD TONSILLECTOMY AND ADENOIDECTOMY HX ads a child Social History Tobacco Use Smoking status: Former Years: 10 Types: Cigars, Cigarettes Quit date: 12/21/1990 Years since quittin.0 Smokeless tobacco: Never Vaping Use Vaping Use: Never used Substance Use Topics Alcohol use: Yes Comment: very little Drug use: Never FAMILY HISTORY Problem Relation Age of Onset Cancer Mother BOWEL Heart Father Hyperlipidemia Father Diabetes Father Hypertension Father Colon Cancer No Family History PHYSICAL EXAMINATION: VITALS:BP 134/76 Pulse 107 Temp 96.7 Resp 16 Ht 5' 10 (1.78m) SpO2 88% [email or web address] GEN: Breathingnonlabored, Cachexia not present . HEENT: Oropharynx clear and Nares patent CHEST: Breath sounds normal, Crackles not present, Wheezing not present. HEART: Rhythm regular,Heart sounds normal, Added sounds not present, Murmur not present . ABD: Soft and Bowel Sounds: not present EXT: Clubbing no, edema no . SKIN: Rashes no, lesions no. NEURO: Global strength normal, gait unsteady Uses rollator. 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 PSP - Spirometry results were repeatable. Aerosol Albuterol 0.83% used as bronchodilator IMPRESSION: Spirometry indicates moderate obstruction. There is no significant bronchodilator response. Electronically Signed On 07-19-2022 8:02:07 EDT by Albino Hardy MD ID: [id number] Name: ADINA DAVID Race: White Ht: 70.00 in Wt: 199.00 lbs Age: 66 Gender: Male : 1955 Dx: Chronic obstructive pulmonary disease with (acute) exacerbation Smoking Hx: Non-smoker Doctor: ULISES RAMOS Test Date: 07/18/2022 Site: [facility] Tech: Mike Olivier PRE-BRONCH POST-BRONCH Pre LLN Pred ULN %Pred Post %Pred %Chg SPIROMETRY FVC (L) 4.16 3.20 4.30 5.41 96 4.15 96 0 FEV1 (L) 2.25 2.37 3.26 4.10 69 2.15 65 -3 FEV1/FVC 0.54 0.63 0.76 0.88 71 0.52 68 -4 PEF L/s (L/sec) 4.93 6.17 8.48 10.80 58 5.00 58 1 FEF50 (L/sec) 1.18 1.98 4.11 6.23 28 0.88 21 -25 FIF50 (L/sec) 2.89 1.71 -40 FEF50/FIF50 0.41 90-100 0.50 23 FIVC (L) 4.36 4.22 -3 SAG45-02 (L/sec) 0.90 1.11 2.51 4.47 36 0.77 30 -14 Time (sec) 11.56 11.71 1 FET PEF (sec) 0.08 0.06 -27 ALBAN (L) 0.07 0.06 -24 Vol Extrap % (%) 2 1 -24 Comments: PT ID checked birthdate/ last name PSP - Spirometry results were repeatable. PSP - Spirometry results were repeatable. Aerosol Albuterol 0.83% used as bronchodilator Arterial blood gas: Lactate (POCT) Date Value Ref Range Status 12/01/2022 1.5 0.5 - 2.0 mmol/L Final CT scan of the chest: 11/2022 Reviewed with patient. PET/CT 11/[address] Chest other findings: Last CT Chest - Impression Only CT CHEST W IVCON PE Exam End: 12/01/2022 4:23 PM (Final result) Impression: IMPRESSION: Likely chronic right lower lobe segmental pulmonary embolism. Development of mild basilar and dependent groundglass opacities with some volume loss, suggesting atelectasis, although superimposed edema, inflammation or hemorrhage is not excluded. Additional new consolidative opacities in the left lung base suspicious for confluent involvement of the same process versus infectious/inflammatory process such as aspiration pneumonitis. Radiographic follow-up is recommended..... Last XR Chest - Impression Only XR CHEST 1V FRONTAL PORT Exam End: 12/04/2022 1:20 PM (Final result) Impression: IMPRESSION: See result ... Recent Results (from the past 4464 hour(s)) ECHO Collection Time: 12/02/22 8:28 AM Impression CONCLUSIONS: - Technically difficult exam due to body habitus and suboptimal positioning. - Exam indication: Respiratory failure with established non-cardiac etiology - There is a resting wall motion abnormality in the territory of the LCX. - The left ventricle is normal in size. There is left ventricular hypertrophy. Left ventricular systolic function is mildly decreased. EF = 45 5% (visual est.) Left ventricular diastolic function was not evaluated due to inconsistent or technically suboptimal data. difficult parasternal and apical imaging due to body habitus, imaging obtained medial/subcostally. - The right ventricle is dilated. Right ventricular systolic function is low normal. - The left atrial cavity is mildly dilated. - AV morphology best seen in clip #[id number]. - Exam was compared with the prior echocardiographic exam performed on 2018. ([place]) * * * Final * * * Pulmonary hypertension on echocardiogram: no. Other data: None ASSESSMENT and PLAN: 1. CIRA on CPAP - ICD9: 327.23, V46.8, ICD10: G47.33 (primary diagnosis) Prolonged discussion regarding diagnosis and treatment of CIRA Patient is interested in re-establishing disgnosis, because ihe is concrned about his initial test. Patient had a very poor experience at the time of his initial diagnosis. CPAP machine downloaded today, and it is currently set a 7-14 CWP, and has a severe mask leak Options discussed, and we will make adjustments to AutoPAP in a effort to optimize CPAP. We will reset device to 4-13 CWP, and and maximize EPR. Patient underwent Mask fitting today, and patient was given a RESMED N30i M mask today. Given history of recent naso-chantel HSV, we will avoid nasal pillows mask We will follow response to treatment adjustments, and make further recommendations based on patient progress. Given PFT findings of Moderate COPD, I suspect that if the patient is intolerant of CPAP after our adjustments, he may need to be converted to BiPAP If intolerant of nocturnal PAP, patient may be a candidate for Inspire device, and this was discussed today, and the patient is willing to consider this 2. Insomnia - ICD9: 307.42, ICD10: F51.01 Patient with multifactorial insomnia, that will likely require a multi-modality approach to address Given severity of symptoms, we will begin insomnia medication today. Due to age and history of COPD, THC consumption, sedative related sleep aids such as Ambien should be avoided, given potential health risks Will begin Silenor (doxepin) 3 mg tablet 30 min prior to HS. Patient encouraged not to eat 3 hours prior to taking medication, and should minimize fluid intake 90 min prior to bedtime due to nocturia Patient instructed to follow up with urologist ROQUE to determine if any interventions are possible for the patient's frequent nocturia. It is possible that nocturia may improve some once CIRA is adequately treated Smoking cessation strongly encouraged, and the patient is encouraged to make a follow up appointment with Dr. Rios regarding his ongoing pulmonary issues, which were discussed, and will need close follow up First step in management of insomnia will be optimizing treatment of CIRA, and then optimizing other medical conditions contributing to insomnia, including pulmonary disease, and Urologic disease Sleep hygiene issues discussed at length, patient instructed to change from talk radio to white noise/relaxing music. Patien t instructed not to use phone/tablet while going to the bathroom to avoid light exposures during sleep period. Establish a regular sleep schedule Once these have been addressed, if patient still ahs persistent symptoms, will coordinate referral to behavioral sleep medicine for initiation of CBT-I regimen 3) Other health issues: CT imaging and PFTs reviewed with patient today Cough symptoms discussed, and smoking cessation strongly encouraged (reinforced multiple times) Patient is currently established with Dr. Rios, and will be following with him for his pulmonary issues. Patent's daughter has requested a referral to PT due to deconditioning, and patient has requested a referral to urology, as he would like to establish with a new provider. Orders have been placed Patient instructed to contact office with any questions or concerns, or if symptoms worsen Today's office visit represents a prolonged patient encounter of over 120 min involving direct patient care, record review and documentation. Over 50% of this time was dedicated to counseling Nakul Gallegos MD documented in this encounter [facility] 12-12-2022 Note HNO ID: [id number] Author: Maddie White RN Service: ? Author Type: Registered Nurse Type: Progress Notes Filed: 12/12/2022 11:50 AM Note Text: TCM Home Visit Referral Source of Stratification: TCM [facility] Hospital Admission Status: Discharged Readmission Risk Score: 32 VIVI Score: 17 Patient meets program referral criteria: No Patient does not qualify for High Risk TCM Home Visit program due to: Discharged home, does not meet program criteria Maddie White RN December 12, 2022 11:49 AM TRANSITIONAL CARE MANAGEMENT (TCM) COMMUNITY MONITORING PROGRAM Provider Action/FYI: [facility] MEDICATION CHANGES: - Start Subq Lovenox 40 mg daily - Decrease to metoprolol 12.5 mg BID Spoke with patient, denies pain, no sob, no N/V, no fever/chills, tolerating diet, has not weighed himself today, feels better, lives with his dtr and son-in-law on a farm SUMMARY: Discharge Network Status: In-Network Discharge Pt discharged from [facility] on 12/11/22. Admitted for: SOB, fatigue-Chronic pulmonary embolism Contact made with patient: Yes Hi my name is Maddie White RN and I am calling from the [facility] on behalf of your PCP, Ulises Ramos, DO I understand you were recently in the hospital so I am calling to check in with you to ensure you are feeling well now that you're home. May I ask you a few questions related to your hospital stay and well-being? Yes Contact with patient post discharge, spoke to patient. Patient identified by name and . Do you feel your health is BETTER, WORSE, or the SAME since leaving the hospital? Better ACTION TAKEN: Patient indicated symptoms are better or same, no action required. Continue outreach. MEDICATIONS: Many patients have questions or concerns about their medications once they are home. Do you have any questions about taking your medications or which medication you should be on? No Do you need any medication refills at this time, including any of the medications you might take only when needed? No ACTION TAKEN: No action required For RNs or Pharmacy completing outreach ONLY, was a medication review completed? Yes SOCIAL: We would like to make sure you have what you need so that your basics needs are met - including your personal safety, food, housing and medications. Would you like to speak with a social work support team assoc to help give you support for any of these needs? No It can be normal to feel anxious or down during a time like this. Would you like to talk to a mental health professional about how you have been feeling? No ACTION TAKEN: No action taken DISCHARGE INTRUCTIONS: Your discharge instructions / After Visit Summary (AVS) are important in guiding you through the recovery process. Do you have any questions related to your discharge instructions? No Do you have all the necessary equipment and supplies at home? Yes ACTION TAKEN: No action required I would like to help you schedule a hospital follow-up virtual or telephone visit with your PCP. This is a great way for you to connect with your provider to ensure you have safely transitioned home. If you are agreeable, I will send your request to a material scheduler who will contact and assist you with that appointment. This will give you an opportunity to ask any questions or address any concerns you may have with your PCP. Inform the patient that if they have any questions or concerns prior to that appointment, to call their PCP's office right away. ACTION TAKEN: No action required, patient already has an appointment scheduled. Your doctor would like us to remind you of the recommendations regarding the coronavirus (Covid19) outbreak: Avoid public places as much as possible. Avoid close contact (within 6 feet) with others you don?t live with, especially if they are sick. Stay home if you are sick. Wash your hands regularly for at least 20 seconds with soap and water. Wear a cloth mask in public places to help reduce community spread. Do not go to your Doctor?s office unless instructed to do so. For any non-emergency symptoms, call your Doctor?s office to get instructions on how to manage (we might recommend a telephone or virtual visit). For emergency symptoms, proceed to Emergency Department as usual but inform them of cough and fever symptoms ROQUE if present (or call on the way if possible). NYDIA Education Ordered -: No [facility] 12-12-2022 Note Patient Outreach ([facility] ADINA DAVID ([id number]) 1955 M Date Time Provider Department 12/12/22 MADDIE WHITEG During your visit today, we recorded the following information about you: Maddie White RN 12/12/2022 11:50 AM Signed TCM Home Visit Referral Source of Stratification: [facility] Hospital Admission Status: Discharged Readmission Risk Score: 32 VIVI Score: 17 Patient meets program referral criteria: No Patient does not qualify for High Risk TCM Home Visit program due to: Discharged home, does not meet program criteria Maddie White RN December 12, 2022 11:49 AM TRANSITIONAL CARE MANAGEMENT (TCM) COMMUNITY MONITORING PROGRAM Provider Action/FYI: [facility] MEDICATION CHANGES: - Start Subq Lovenox 40 mg daily - Decrease to metoprolol 12.5 mg BID Spoke with patient, denies pain, no sob, no N/V, no fever/chills, tolerating diet, has not weighed himself today, feels better, lives with his dtr and son-in-law on a farm SUMMARY: Discharge Network Status: In-Network Discharge Pt discharged from [facility] on 12/11/22. Admitted for: SOB, fatigue-Chronic pulmonary embolism Contact made with patient: Yes Hi my name is Maddie White RN and I am calling from the [facility] on behalf of your PCP, Ulises Ramos, DO I understand you were recently in the hospital so I am calling to check in with you to ensure you are feeling well now that you're home. May I ask you a few questions related to your hospital stay and well-being? Yes Contact with patient post discharge, spoke to patient. Patient identified by name and . Do you feel your health is BETTER, WORSE, or the SAME since leaving the hospital? Better ACTION TAKEN: Patient indicated symptoms are better or same, no action required. Continue outreach. MEDICATIONS: Many patients have questions or concerns about their medications once they are home. Do you have any questions about taking your medications or which medication you should be on? No Do you need any medication refills at this time, including any of the medications you might take only when needed? No ACTION TAKEN: No action required For RNs or Pharmacy completing outreach ONLY, was a medication review completed? Yes SOCIAL: We would like to make sure you have what you need so that your basics needs are met - including your personal safety, food, housing and medications. Would you like to speak with a social work support team assoc to help give you support for any of these needs? No It can be normal to feel anxious or down during a time like this. Would you like to talk to a mental health professional about how you have been feeling? No ACTION TAKEN: No action taken DISCHARGE INTRUCTIONS: Your discharge instructions / After Visit Summary (AVS) are important in guiding you through the recovery process. Do you have any questions related to your discharge instructions? No Do you have all the necessary equipment and supplies at home? Yes ACTION TAKEN: No action required I would like to help you schedule a hospital follow-up virtual or telephone visit with your PCP. This is a great way for you to connect with your provider to ensure you have safely transitioned home. If you are agreeable, I will send your request to a material scheduler who will contact and assist you with that appointment. This will give you an opportunity to ask any questions or address any concerns you may have with your PCP. Inform the patient that if they have any questions or concerns prior to that appointment, to call their PCP's office right away. ACTION TAKEN: No action required, patient already has an appointment scheduled. Your doctor would like us to remind you of the recommendations regarding the coronavirus (Covid19) outbreak: Avoid public places as much as possible. Avoid close contact (within 6 feet) with others you don?t live with, especially if they are sick. Stay home if you are sick. Wash your hands regularly for at least 20 seconds with soap and water. Wear a cloth mask in public places to help reduce community spread. Do not go to your Doctor?s office unless instructed to do so. For any non-emergency symptoms, call your Doctor?s office to get instructions on how to manage (we might recommend a telephone or virtual visit). For emergency symptoms, proceed to Emergency Department as usual but inform them of cough and fever symptoms ROQUE if present (or call on the way if possible). NYDIA Education Ordered -: No Allergies As of Date: 12/12/2022 Noted Allergy Reaction DOXYCYCLINE 07/17/2021 5 - Intolerance Comments: Rash, diarrhea PENICILLIN 02/22/2017 4 - Hives PENICILLIN V POTASSIUM 12/20/2021 14 - Other: See Comments Date Reviewed: 12/05/2022 Reviewed by: Amy Bach RN - Fully Assessed Reason for Visit: Transition Of Care [4964] Cmt: TCM initia (more content not included)... [facility] 12-11-2022 Note HNO ID: [id number] Author: Kirill Palacio RPh Service: Pharmacy Author Type: Pharmacist Type: Plan of Care Filed: 12/12/2022 7:27 AM Note Text: DISCHARGE MEDICATION REVIEW BY PHARMACY Patient Name: Adina David Account #: Data Unavailable Admission Date: 12/01/2022 Date of Contact: December 11, 2022 Time of Contact: 4:12 PM Medication list was reviewed by a Pharmacist for drug interactions or drug related problems:Yes Below is a summary of pharmacist recommendations discussed with LIP: No Recommendations at this time from Discharge Medication List. Nabil Matias RPh December 11, 2022 4:12 PM Pager: [phone] 12/11/2022 4:12 PM Medication List START taking these medications enoxaparin 40 mg/0.4 mL Commonly known as: LOVENOX Inject 0.4 mL subcutaneously every 24 hours. sodium bicarbonate 650 mg tablet Take 1 tablet by mouth twice daily. CHANGE how you take these medications metoprolol tartrate (short acting) 25 mg tablet Commonly known as: LOPRESSOR Take half a tablet by mouth twice daily. What changed: medication strength how much to take REPATHA SURECLICK 140 mg/mL pen injector Generic drug: evolocumab Inject 140 mg subcutaneously every 2 weeks. What changed: when to take this TRELEGY ELLIPTA 100-62.5-25 mcg inhalation powder Generic drug: dvxaolmdprq-mbenaufzb-fcabnwnp Inhale 1 Puff as instructed once daily. What changed: medication strength how much to take when to take this CONTINUE taking these medications BABY ASPIRIN ORAL CPAP ergocalciferol (vitamin D2) 50,000 unit capsule Commonly known as: DRISDOL hydroxyurea 500 mg capsule Commonly known as: HYDREA Take 2 capsules by mouth once daily. magnesium oxide 400 mg (241.3 mg magnesium) tablet Commonly known as: MAG-OX Take 0.5 tablets by mouth once daily. 0.5 tablet omeprazole 40 mg capsule Commonly known as: PriLOSEC Take 1 capsule by mouth once daily roflumilast 500 mcg Tab Commonly known as: DALIRESP zolpidem 5 mg tablet Commonly known as: AMBIEN Take 1 tablet by mouth at bedtime as needed for up to 90 days. STOP taking these medications calcitriol 0.25 mcg capsule Commonly known as: ROCALTROL calcium carbonate 500 mg Chew Commonly known as: CALCIUM ANTACID Fluticasone Furoate 27.5 mcg/actuation nasal spray modafinil 200 mg tablet Commonly known as: PROVIGIL valACYclovir 1 gram Commonly known as: VALTREX Where to Get Your Medications These medications were sent to [facility] [address] [place], [place] [id number] Hours: Friday-Friday 7am-8pm, Friday, Friday and Holidays 9am-5pm enoxaparin 40 mg/0.4 mL metoprolol tartrate (short acting) 25 mg tablet sodium bicarbonate 650 mg tablet These medications were sent to [facility] [address] [place] [address] - [phone] [place] [id number] hydroxyurea 500 mg capsule TRELEGY ELLIPTA 100-62.5-25 mcg inhalation powder [facility] 12-11-2022 Note HNO ID: [id number] Author: Vahe Cancino Service: ? Author Type: Security Advisor Type: Plan of Care Filed: 12/11/2022 4:06 PM Note Text: PHARMACY BEDSIDE DELIVERY SERVICE Patient Name: Adina David The marked outpatient [facility] and delivered to the patient's bedside to patient Medication List START taking these medications enoxaparin 40 mg/0.4 mL Commonly known as: LOVENOX Inject 0.4 mL subcutaneously every 24 hours. DELIVERED TO PATIENT sodium bicarbonate 650 mg tablet Take 1 tablet by mouth twice daily. DELIVERED TO PATIENT CHANGE how you take these medications metoprolol tartrate (short acting) 25 mg tablet Commonly known as: LOPRESSOR Take half a tablet by mouth twice daily. What changed: medication strength how much to take DELIVERED TO PATIENT KATHI ONEILCLICK 140 mg/mL pen injector Generic drug: evolocumab Inject 140 mg subcutaneously every 2 weeks. What changed: when to take this JOSELETHOMAS ELLIPTA 100-62.5-25 mcg inhalation powder Generic drug: ziqidshdgrs-dldyvqjgc-ekmpxpii Inhale 1 Puff as instructed once daily. What changed: medication strength how much to take when to take this SENT TO HOME PHARMACY CONTINUE taking these medications BABY ASPIRIN ORAL CPAP ergocalciferol (vitamin D2) 50,000 unit capsule Commonly known as: DRISDOL hydroxyurea 500 mg capsule Commonly known as: HYDREA Take 2 capsules by mouth once daily. magnesium oxide 400 mg (241.3 mg magnesium) tablet Commonly known as: MAG-OX Take 0.5 tablets by mouth once daily. 0.5 tablet omeprazole 40 mg capsule Commonly known as: PriLOSEC Take 1 capsule by mouth once daily roflumilast 500 mcg Tab Commonly known as: DALIRESP zolpidem 5 mg tablet Commonly known as: AMBIEN Take 1 tablet by mouth at bedtime as needed for up to 90 days. You might also be taking other medications not listed above. If you have questions about any of your other medications, talk to the person who prescribed them or your Primary Care Provider. STOP taking these medications calcitriol 0.25 mcg capsule Commonly known as: ROCALTROL calcium carbonate 500 mg Chew Commonly known as: CALCIUM ANTACID Fluticasone Furoate 27.5 mcg/actuation nasal spray modafinil 200 mg tablet Commonly known as: PROVIGIL valACYclovir 1 gram Commonly known as: VALTREX Vahegarry Thomass PAGER: [phone] December 11, 2022 4:05 PM [facility] 12-10-2022 Note HNO ID: [id number] Author: Ki Levin MD Service: Hematology/Oncology Author Type: Physician Type: Plan of Care Filed: 01/01/2023 5:52 PM Note Text: This note was created in error. [facility] 12-10-2022 Note HNO ID: [id number] Author: Bassam Qureshi Service: Pharmacy Author Type: Security Advisor Type: Plan of Care Filed: 12/10/2022 11:26 AM Note Text: Reason for test claim: General Medication: apixaban 2.5 mg tabs Qty: 60 Day supply: 30 Cost on insurance: $151.46 Requires Prior Authorization: No Copay card/voucher available: Yes, voucher Cost of medication on copay card/voucher: $0.00 for the first 30 days, one time use only Medication: enoxaparin 40 mg/ 0.4 mL Qty: 12 mL Day supply: 30 Cost on insurance: $26.55 Requires Prior Authorization: No Copay card/voucher available: No Total number of hayward checks: 2 If medication(s) needs to be filled or a prior authorization initiated by pharmacy, please send new prescription(s) over to [facility]. Any questions, [place] [phone]. Thank you (Prices may vary at different pharmacy locations, this is the cost at [facility]) [facility] 12-10-2022 Note HNO ID: [id number] Author: Gilbert Garcia LSW Service: Care Management Author Type: Fullerette Type: Care Mgt Progress Note Filed: 12/11/2022 3:41 PM Note Text: CARE MANAGEMENT PROGRESS NOTE SERVICE DATE: 12/10/2022 SERVICE TIME: 11:15 AM LOS: 9 days Needs Prior to Discharge: To Be Determined;Other: See Comment (ID recommendations, Medical Clearance) DISCHARGE PLAN Anticipated Discharge Plan: TBD pending medical clearance Anticipated Discharge Date: TBD Per documented desat performed today, pt does not qualify for home going oxygen. Awaiting ID recommendations. Final needs TBD. SW/CM will continue to follow for transitional care needs. ADDENDUM 3:40 PM Per chart review, ID has not recommended a CoPAT. No other needs identified. This patient has been screened for Care Management Transitional Planning Services. At this time, it does not appear this patient will require transition planning services. Should this change, and the patient require transition planning services during this admission, please contact Case Management. SIGNATURE: AMOR Parker PATIENT NAME: Adina David DATE: December 10, 2022 TIME: 11:15 AM PAGER/CONTACT #: [phone] [facility] 12-10-2022 Note HNO ID: [id number] Author: Carole Pascal MD Service: General Internal Medicine Author Type: Physician Type: Progress Notes Filed: 12/10/2022 4:44 PM Note Text: General Internal Medicine - Service Max Haro Progress Note From 7am to 5pm: Please page [phone] After hours 5pm to 7am: Please page on-call [phone] SERVICE DATE: 12/10/2022 SERVICE TIME: 9:05 AM Patient Summary Interval History: - RON, currently on RA - Kidney fxn improving, hold off on any additional diuresis - Awaiting Infectious disease workup (Histoplasma and fungal battery pending) - Lymphoma service evaluated patient yesterday. Will complete outpatient work-up for enlarging lymph nodes and LAD insetting of CLL and history of RCC. - Await ID workup (fungal battery, aspergillus, histo, Beta glucan); appreciate ID recommendations - Desaturation study completed today, did not require O2 at rest or with ambulaton Physical Exam Patient Vitals for the past 24 hrs: BP: 111/50 Temp: 37.4 ?C (99.3 ?F) Temp src: Oral Pulse: 96 Resp: 19 O2 Therapy: Room Air SpO2: 95 % GENERAL: Alert, no distress, cooperative SKIN: Skin color, texture, turgor normal. OROPHARYNX: No exudates or erythema NECK: No JVD, No carotid bruits, No lymphadenopathy LUNGS: Faint inspiratory crackles at L base, no wheezes or ronchi, normal respiratory effort CARDIAC: Regular rate and rhythm. Normal S1 and S2; no rubs, murmurs, or gallops ABDOMEN: Abdomen soft, non-tender, non-distended, BS normal, No masses or organomegaly. Multiple surgical scars at nephrectomy and hernia repair sites EXTREMITIES: No edema, clubbing or skin discoloration. No ulcers NEURO: Alert, oriented X 3, No involuntary motions PULSES: 2+ radial, 2+ carotid Labs CBC, Coags, BMP, Mg, Phos Recent Labs 12/10/22 0606 12/09/22 0813 12/08/22 1858 12/08/22 1714 WBC 43.34* 34.52* -- 36.26* HB 8.7* 8.5* -- 8.2* HCT 28.8* 27.9* -- 27.1* PLT 446* 421* -- 436* NA -- 133* 132* 133* K -- 4.7 4.8 5.2* CHLOR -- 101 100 102 CO2 -- 19* 19* 18* BUN -- 35* 34* 34* CREAT -- 2.10* 2.35* 2.37* GLUC -- 102* 111* 99 CA -- 10.2 10.3* 10.0 MG -- 1.7 1.7 -- P -- -- 4.1 4.5 Liver Function, Amylase, AND Lipase Recent Labs 12/08/22 1858 12/08/22 1714 ALB 4.0 3.7* Cardiac Enzymes ABGs Procalcitonin <0.09 ng/mL 0.08 Urine pH, Urine Date Value Ref Range Status 12/04/2022 5.5 5.0 - 8.0 Final Specific Jennings, Ur Date Value Ref Range Status 12/04/2022 1.017 1.005 - 1.030 Final Glucose, Urine Date Value Ref Range Status 12/04/2022 Negative Trace, Negative Final Bilirubin, Urine Date Value Ref Range Status 12/04/2022 Negative Negative Final Ketones, Urine Date Value Ref Range Status 12/04/2022 Negative Trace, Negative Final Hemoglobin/Blood,Ur Date Value Ref Range Status 12/04/2022 Negative Negative, Trace Final Protein, Urine Date Value Ref Range Status 12/04/2022 Trace Trace, Negative Final Urobilinogen Date Value Ref Range Status 12/04/2022 Negative Negative Final Nitrites Date Value Ref Range Status 12/04/2022 Negative Negative Final WBC, Urine Date Value Ref Range Status 12/04/2022 0-5 /HPF 0-5 /HPF Final Latest Reference Range AND Units 12/04/22 12:30 Sodium, Urine Random 14 - 216 mmol/L 26 Creatinine, Ur Random (UCRR) 20.0 - 300.0 mg/dL 149.9 Osmolality, Urine 50 - 1,200 mOsm/kg 416 Micro -MRSA nares negative -Urine strep negative -Sputum cx with few oral keo, no PMNs -Blood cx Ngx1 day -RVP +ve for rhinovirus - Cryptococcus negative - Legionella negative - 1,3 B-D-Glucan negative - Histo in process - Fungal battery pending Imaging PET CT 12/06 IMPRESSION: HEAD/NECK: * No FDG avid neoplastic process. CHEST: * Diffuse bronchial wall thickening associated with low-level FDG activity and heterogeneous mild right basilar opacities. Constellation of findings are probably related to a combination of atelectasis and airway inflammation. * Low level FDG activity in the region of a 6 mm central left upper lobe pulmonary nodule is difficult to distinguish from adjacent airway/vascular activity. Advise continued CT surveillance. * Additional subcentimeter pulmonary nodules without increased FDG activity may be below resolution of PET. * Intrathoracic lymphadenopathy with low level and mild FDG activity may in part be reactive and/or related to known CLL. * Previous left lung base consolidative opacities have resolved. ABDOMEN/PELVIS: * Subcentimeter mildly FDG avid left inguinal lymph node may be reactive. * Mildly enlarged mesenteric root lymph nodes with FDG activity below blood pool levels. * Splenomegaly without hypersplenism. BONES/EXTREMITIES: * No suspicious FDG avid osseous lesion. DVT US 12/02 RIGHT SIDE - DEEP VEINS Negative for acute deep vein thrombosis. 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 [facility] 12-09-2022 History of Present illness Narrative [facility] Psycho-Oncology Program CONFIDENTIAL INITIAL PSYCHOLOGICAL EVALUATION DATE OF SERVICE: December 09, 2022, Virtual Initial Diagnostic Evaluation, 8:15pm to 9:00am PRESENT: Patient REFERRAL SOURCE: Dr. Dale Due to the [facility] and [facility] and the need for ongoing mental health services, the following visit was completed virtually to reduce the risk of COVID-19 exposure. Consent related to virtual visits was provided verbally after information was sent via [employer] or read to patient if [employer] not available. The session was completed virtually. Consent related to virtual visits was granted verbally by the patient. IDENTIFYING INFORMATION Adina David is a 67 year old male, , with multiple hematological conditions that were diagnosed in 2018. Her oncologist is Dr. Dale. Mental health history is significant for depression. Referred by Dr. Dale. INITIAL IMPRESSION and SUMMARY Adina David is a 67 year old male who presented with multiple hematological conditions, who was refer to oncology psychology for evaluation and support. Mr. David described a premorbid history of mood problems that were resolved many years ago. He currently presented with frustration and sadness with his medical treatment and functional limitations. He also conveyed difficulties with accepting multiple losses (his , several good friends). No SI/HI. Mr. David is very frustrated with the medical care he has received. He feel no one cares and nothing makes sense. He doesn't perceive his treatment as helpful and doesn't think his treatment will improve his condition. Mr. David describes himself as a happy person and stated if he felt better, he would be able to cope with losing his and two life-long friends. PRESENTING PROBLEMS/SYMPTOMS Mr. David reported presenting problems as no one will help me. Current psychotropic medications: none DISEASE RELATED SYMPTOMS THAT HAVE HINDERED FUNCTIONING Physical limitations ( can't breathe, can't move ) Will assess PHQ and GABRIELLA next session. MDD: history of depression over 50 years ago Hypomania/jim: denied H/o inpatient psychiatric hospitalization: denied H/o suicidality: denied Will assess anxiety, trauma, and psychosis in next session. PRIOR HISTORY OF PSYCHIATRIC/MENTAL HEALTH TREATMENT A few couple's therapy sessions over 10 years ago. FAMILY HISTORY OF PSYCHIATRIC DISORDERS Will assess in future sessions. 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 glover Diverticulitis of intestine with perforation 2004 WITH FISTULA Essential hypertension FHx: colon cancer Mother GERD (gastroesophageal reflux disease) HAS GI - [place] History of chickenpox History of scarlet fever History of spinal fracture 1973 L3-4 Hx of squamous cell carcinoma Hydrocele in adult Hypertriglyceridemia Hypokalemia 03/31/2019 Hypomagnesemia 03/31/2019 Leukocytosis 03/31/2019 Lipoma of back NSTEMI (non-ST elevated myocardial infarction) (HCC) Other emphysema (HCC) 12/02/2022 Personal history of skin cancer bcc (r shoulder) 2015, scc (l lateral lower leg) 2018 Renal cancer (HCC) Stage 3 Sleep apnea CPAP CURRENT MEDICATIONS/MEDICATION HISTORY No current facility-administered medications for this visit. No current outpatient medications on file. Facility-Administered Medications Ordered in Other Visits Medication Dose Route Frequency Provider Last Rate Last Admin sodium bicarbonate 650 mg tab(s) 650 mg ORAL BID Roger Guerrier MD 650 mg at 12/08/222205 docosanol 10 % (ABREVA) TOPICAL 5X/DAY Elian Madrigal MD Given at 12/08/222215 metoprolol tartrate (short acting) 12.5 mg tab(s) (LOPRESSOR) 12.5 mg ORAL BID Carole Pascal MD 12.5 mg at 12/08/222205 arformoterol 15 mcg nebulizer solution (BROVANA) 15 mcg INHALATION q 12 H Nimco Gibson MD 15 mcg at 12/08/222049 budesonide 0.25 mg/2 mL 0.25 mg (PULMICORT) 0.25 mg INHALATION BID Nimco Gibson MD 0.25 mg at 12/08/222047 ipratropium-albuterol 3 mL nebulizer solution (DUONEB) 3 mL INHALATION q 6 H PRN Андрей Klein MD 3 mL at 12/08/222048 hydroxyurea 1,000 mg cap(s) (HYDREA) 1,000 mg ORAL DAILY Carole Pascal MD 1,000 mg at 12/08/22 1037 iv contrast (radiology procedure) INTRAVENOUS DIRECTED PRN Silvino Barcenas DO iv contrast (radiology procedure) INTRAVENOUS DIRECTED PRN Silvino Barcenas DO NaCl 0.9% iv flush bag 20 mL INTRAVENOUS PRN David Petersen MD acetaminophen 650 mg tab(s) (TYLENOL) 650 mg ORAL q 6 H PRN Umesh Pierre MD 650 mg at 12/08/222205 melatonin 1 mg tab(s) 1 mg ORAL DAILY (8 PM) Umesh Pierre MD 1 mg at 12/08/222205 aspirin 81 mg chewable tab(s) 81 mg ORAL/FEEDING TUBE DAILY Umesh Pierre MD 81 mg at 12/08/[address] 40 mg tab(s) (PROTONIX) 40 mg ORAL DAILY (6 AM) Umesh Pierre MD 40 mg at 12/09/22 0647 zolpidem 5 mg tab(s) (AMBIEN) 5 mg ORAL AT BEDTIME PRN Umesh Pierre MD 5 mg at 12/08/22 2206 heparin 5,000 Units injection 5,000 Units SUBCUTANEOUS q 8 H Umesh Pierre MD 5,000 Units at 12/09/22 0647 ALLERGIES ALLERGIES Allergen Reactions Doxycycline Intolerance Rash, diarrhea Penicillin Hives Penicillin V Potass* Other: See Comments SUBSTANCE USE Will assess in future session. MENTAL STATUS Appearance: Appears stated age, Ill appearing, and In hospital gown Behavior: Behaves appropriately during the encounter Social relatedness: Irritable Orientation: Person, Place, Time and Situation Speech/Language:The patient demonstrates appropriate tone, prosody, donte, phonetics, and syntax Cognition: Grossly Intact Mood: Euthymic Affect: Full and appropriate to topic Associations: Intact and linear Hallucinations: None Delusions: None Suicidal Ideation: No suicidal ideation, intent or plan. Homicidal Ideation: No homicidal ideation, intent or plan. 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 Follow up scheduled. Plan to outline goals and interventions with patient at next appt. -Provided initial guidance on the role of psychology services for medically ill people. -Will communicate with oncology team members as needed for treatment planning purposes. Reviewed treatment agreement with patient. Reviewed credentials, confidentiality guidelines and limitations, EMR access, emergency procedures, and financial responsibility. Discussed initial treatment recommendations. Patient acknowledged understanding of treatment agreement/informed consent and signed form. Thank you for referring this patient. Please do not hesitate to call with any questions or concerns. Yoselin Dobbs, Ph.D. Staff Clinical Psychologist Hem/Medical Onc [facility] [id number] This note was partially generated using [employer] voice recognition system. documented in this encounter [facility] 12-09-2022 Note HNO ID: [id number] Author: Carole Pascal MD Service: General Internal Medicine Author Type: Physician Type: Progress Notes Filed: 12/09/2022 4:35 PM Note Text: General Internal Medicine - Service Max Haro Progress Note From 7am to 5pm: Please page [phone] After hours 5pm to 7am: Please page on-call [phone] SERVICE DATE: 12/07/2022 SERVICE TIME: 9:05 AM Patient Summary Interval History: - RON, currently on RA - Kidney fxn improving, hold off on any additional diuresis - Awaiting Infectious disease workup (Histoplasma and fungal battery pending) - PET results show low level FDG activity in [place], intrathoracic LAD low to mild FDG, with low level in the mild right basilar opacities- not very specific for any malignant process but will await oncology input - Await ID workup (fungal battery, aspergillus, histo, Beta glucan); appreciate ID recommendations Physical Exam Patient Vitals for the past 24 hrs: BP: 108/50 Temp: 37.2 ?C (99 ?F) Temp src: Oral Pulse: 95 Resp: 18 O2 Therapy: Room Air SpO2: 94 % GENERAL: Alert, no distress, cooperative SKIN: Skin color, texture, turgor normal. OROPHARYNX: No exudates or erythema NECK: No JVD, No carotid bruits, No lymphadenopathy LUNGS: Faint inspiratory crackles at L base, no wheezes or ronchi, normal respiratory effort CARDIAC: Regular rate and rhythm. Normal S1 and S2; no rubs, murmurs, or gallops ABDOMEN: Abdomen soft, non-tender, non-distended, BS normal, No masses or organomegaly. Multiple surgical scars at nephrectomy and hernia repair sites EXTREMITIES: No edema, clubbing or skin discoloration. No ulcers NEURO: Alert, oriented X 3, No involuntary motions PULSES: 2+ radial, 2+ carotid Labs CBC, Coags, BMP, Mg, Phos Recent Labs 12/08/22 1858 12/08/22 1714 12/07/22 0702 12/06/22 1700 12/06/22 1255 WBC -- 36.26* 34.46* 41.53* 33.24* HB -- 8.2* 8.3* 8.9* 8.0* HCT -- 27.1* 27.3* 29.7* 26.5* PLT -- 436* 429* 459* 453* NA 132* 133* 136 135* 135* K 4.8 5.2* 5.3* 5.4* 4.6 CHLOR 100 102 104 103 104 CO2 19* 18* 19* 17* 19* BUN 34* 34* 31* 35* 35* CREAT 2.35* 2.37* 2.14* 2.26* 2.22* GLUC 111* 99 96 104* 105* CA 10.3* 10.0 10.0 9.9 9.6 MG 1.7 -- 1.6* 1.7 -- P 4.1 4.5 -- -- 4.1 Liver Function, Amylase, AND Lipase Recent Labs 12/08/22 1858 12/08/22 1714 12/06/22 1255 ALB 4.0 3.7* 3.5* Cardiac Enzymes ABGs Procalcitonin <0.09 ng/mL 0.08 Urine pH, Urine Date Value Ref Range Status 12/04/2022 5.5 5.0 - 8.0 Final Specific Jennings, Ur Date Value Ref Range Status 12/04/2022 1.017 1.005 - 1.030 Final Glucose, Urine Date Value Ref Range Status 12/04/2022 Negative Trace, Negative Final Bilirubin, Urine Date Value Ref Range Status 12/04/2022 Negative Negative Final Ketones, Urine Date Value Ref Range Status 12/04/2022 Negative Trace, Negative Final Hemoglobin/Blood,Ur Date Value Ref Range Status 12/04/2022 Negative Negative, Trace Final Protein, Urine Date Value Ref Range Status 12/04/2022 Trace Trace, Negative Final Urobilinogen Date Value Ref Range Status 12/04/2022 Negative Negative Final Nitrites Date Value Ref Range Status 12/04/2022 Negative Negative Final WBC, Urine Date Value Ref Range Status 12/04/2022 0-5 /HPF 0-5 /HPF Final Latest Reference Range AND Units 12/04/22 12:30 Sodium, Urine Random 14 - 216 mmol/L 26 Creatinine, Ur Random (UCRR) 20.0 - 300.0 mg/dL 149.9 Osmolality, Urine 50 - 1,200 mOsm/kg 416 Micro -MRSA nares negative -Urine strep negative -Sputum cx with few oral keo, no PMNs -Blood cx Ngx1 day -RVP +ve for rhinovirus - Cryptococcus negative - Legionella negative - 1,3 B-D-Glucan negative - Histo in process - Fungal battery pending Imaging PET CT 12/06 IMPRESSION: HEAD/NECK: * No FDG avid neoplastic process. CHEST: * Diffuse bronchial wall thickening associated with low-level FDG activity and heterogeneous mild right basilar opacities. Constellation of findings are probably related to a combination of atelectasis and airway inflammation. * Low level FDG activity in the region of a 6 mm central left upper lobe pulmonary nodule is difficult to distinguish from adjacent airway/vascular activity. Advise continued CT surveillance. * Additional subcentimeter pulmonary nodules without increased FDG activity may be below resolution of PET. * Intrathoracic lymphadenopathy with low level and mild FDG activity may in part be reactive and/or related to known CLL. * Previous left lung base consolidative opacities have resolved. ABDOMEN/PELVIS: * Subcentimeter mildly FDG avid left inguinal lymph node may be reactive. * Mildly enlarged mesenteric root lymph nodes with FDG activity below blood pool levels. * Splenomegaly without hypersplenism. BONES/EXTREMITIES: * No suspicious FDG avid osseous lesion. DVT US 12/02 RIGHT SIDE - DEEP VEINS Negative for acute deep vein thrombosis. RI (more content not included)... [facility] 12-08-2022 Note HNO ID: [id number] Author: Roger Guerrier MD Service: General Internal Medicine Author Type: Physician Type: Progress Notes Filed: 12/08/2022 10:48 AM Note Text: General Internal Medicine - Service Max Haro Progress Note From 7am to 5pm: Please page [phone] After hours 5pm to 7am: Please page on-call [phone] SERVICE DATE: 12/07/2022 SERVICE TIME: 9:05 AM Patient Summary Interval History: - RON, currently on RA - Kidney fxn improving, hold off on any additional diuresis - Awaiting Infectious disease workup - PET results show low level FDG activity in BALBIR, intrathoracic LAD low to mild FDG, with low level in the mild right basilar opacities- not very specific for any malignant process but will await oncology input - await ID workup (fungal battery, aspergillus, histo, Beta glucan); appreciate ID recommendations - Elevation in K+ appreciated, will CTM and reduce K in diet. - Encouraged to drink fluids Physical Exam Patient Vitals for the past 24 hrs: BP: 145/71 Temp: 36.7 ?C (98 ?F) Temp src: Oral Pulse: 107 Resp: 18 O2 Therapy: Nasal Cannula SpO2: 99 % GENERAL: Alert, no distress, cooperative SKIN: Skin color, texture, turgor normal. Slight erythema around L PIV site OROPHARYNX: No exudates or erythema NECK: No JVD, No carotid bruits, No lymphadenopathy LUNGS: Faint inspiratory crackles at bilateral bases, no wheezes or ronchi, normal respiratory effort CARDIAC: Regular rate and rhythm. Normal S1 and S2; no rubs, murmurs, or gallops ABDOMEN: Abdomen soft, non-tender, non-distended, BS normal, No masses or organomegaly. Multiple surgical scars at nephrectomy and hernia repair sites EXTREMITIES: No edema, clubbing or skin discoloration. No ulcers NEURO: Alert, oriented X 3, No involuntary motions PULSES: 2+ radial, 2+ carotid Labs CBC, Coags, BMP, Mg, Phos Recent Labs 12/07/22 0702 12/06/22 1700 12/06/22 1255 12/05/22 1411 WBC 34.46* 41.53* 33.24* 40.77* HB 8.3* 8.9* 8.0* 8.8* HCT 27.3* 29.7* 26.5* 29.1* PLT 429* 459* 453* 568* NA 136 135* 135* 133* K 5.3* 5.4* 4.6 4.6 CHLOR 104 103 104 101 CO2 19* 17* 19* 19* BUN 31* 35* 35* 39* CREAT 2.14* 2.26* 2.22* 2.47* GLUC 96 104* 105* 93 CA 10.0 9.9 9.6 10.2 MG 1.6* 1.7 -- 1.7 P -- -- 4.1 4.6 Liver Function, Amylase, AND Lipase Recent Labs 12/06/22 1255 12/05/22 1411 ALB 3.5* 4.1 Cardiac Enzymes ABGs Procalcitonin <0.09 ng/mL 0.08 Urine pH, Urine Date Value Ref Range Status 12/04/2022 5.5 5.0 - 8.0 Final Specific Jennings, Ur Date Value Ref Range Status 12/04/2022 1.017 1.005 - 1.030 Final Glucose, Urine Date Value Ref Range Status 12/04/2022 Negative Trace, Negative Final Bilirubin, Urine Date Value Ref Range Status 12/04/2022 Negative Negative Final Ketones, Urine Date Value Ref Range Status 12/04/2022 Negative Trace, Negative Final Hemoglobin/Blood,Ur Date Value Ref Range Status 12/04/2022 Negative Negative, Trace Final Protein, Urine Date Value Ref Range Status 12/04/2022 Trace Trace, Negative Final Urobilinogen Date Value Ref Range Status 12/04/2022 Negative Negative Final Nitrites Date Value Ref Range Status 12/04/2022 Negative Negative Final WBC, Urine Date Value Ref Range Status 12/04/2022 0-5 /HPF 0-5 /HPF Final Latest Reference Range AND Units 12/04/22 12:30 Sodium, Urine Random 14 - 216 mmol/L 26 Creatinine, Ur Random (UCRR) 20.0 - 300.0 mg/dL 149.9 Osmolality, Urine 50 - 1,200 mOsm/kg 416 Micro -MRSA nares negative -Urine strep negative -Sputum cx with few oral keo, no PMNs -Blood cx Ngx1 day -RVP +ve for rhinovirus - Cryptococcus negative - Legionella negative - 1,3 B-D-Glucan negative - Histo in process Imaging PET CT 12/06 IMPRESSION: HEAD/NECK: * No FDG avid neoplastic process. CHEST: * Diffuse bronchial wall thickening associated with low-level FDG activity and heterogeneous mild right basilar opacities. Constellation of findings are probably related to a combination of atelectasis and airway inflammation. * Low level FDG activity in the region of a 6 mm central left upper lobe pulmonary nodule is difficult to distinguish from adjacent airway/vascular activity. Advise continued CT surveillance. * Additional subcentimeter pulmonary nodules without increased FDG activity may be below resolution of PET. * Intrathoracic lymphadenopathy with low level and mild FDG activity may in part be reactive and/or related to known CLL. * Previous left lung base consolidative opacities have resolved. ABDOMEN/PELVIS: * Subcentimeter mildly FDG avid left inguinal lymph node may be reactive. * Mildly enlarged mesenteric root lymph nodes with FDG activity below blood pool levels. * Splenomegaly without hypersplenism. BONES/EXTREMITIES: * No suspicious FDG avid osseous lesion. DVT US 12/02 RIGHT SIDE - DEEP VEINS Negative for acute deep vein thrombosis. RIGHT SIDE - SUPER (more content not included)... [facility] 12-07-2022 Note HNO ID: [id number] Author: Roger Guerrier MD Service: General Internal Medicine Author Type: Physician Type: Progress Notes Filed: 12/07/2022 2:12 PM Note Text: General Internal Medicine - Service Max Haro Progress Note From 7am to 5pm: Please page [phone] After hours 5pm to 7am: Please page on-call [id number] SERVICE DATE: 12/07/2022 SERVICE TIME: 9:05 AM Patient Summary Interval History: - RON, currently on RA - Kidney fxn improving, hold off on any additional diuresis - Awaiting Infectious disease workup - PET results show low level FDG activity in BALBIR, intrathoracic LAD low to mild FDG, with low level in the mild right basilar opacities- not very specific for any malignant process but will await oncology input - await ID workup (fungal battery, aspergillus, histo, Beta glucan); appreciate ID recommendations - Elevation in K+ appreciated, will CTM and reduce K in diet. - Encouraged to drink fluids Physical Exam Patient Vitals for the past 24 hrs: BP: 137/66 Temp: 36.7 ?C (98.1 ?F) Temp src: Oral Pulse: 108 Resp: 17 O2 Therapy: Nasal Cannula SpO2: 95 % GENERAL: Alert, no distress, cooperative SKIN: Skin color, texture, turgor normal. Slight erythema around L PIV site OROPHARYNX: No exudates or erythema NECK: No JVD, No carotid bruits, No lymphadenopathy LUNGS: Faint inspiratory crackles at bilateral bases, no wheezes or ronchi, normal respiratory effort CARDIAC: Regular rate and rhythm. Normal S1 and S2; no rubs, murmurs, or gallops ABDOMEN: Abdomen soft, non-tender, non-distended, BS normal, No masses or organomegaly. Multiple surgical scars at nephrectomy and hernia repair sites EXTREMITIES: No edema, clubbing or skin discoloration. No ulcers NEURO: Alert, oriented X 3, No involuntary motions PULSES: 2+ radial, 2+ carotid Labs CBC, Coags, BMP, Mg, Phos Recent Labs 12/07/22 0702 12/06/22 1700 12/06/22 1255 12/05/22 1411 WBC 34.46* 41.53* 33.24* 40.77* HB 8.3* 8.9* 8.0* 8.8* HCT 27.3* 29.7* 26.5* 29.1* PLT 429* 459* 453* 568* NA 136 135* 135* 133* K 5.3* 5.4* 4.6 4.6 CHLOR 104 103 104 101 CO2 19* 17* 19* 19* BUN 31* 35* 35* 39* CREAT 2.14* 2.26* 2.22* 2.47* GLUC 96 104* 105* 93 CA 10.0 9.9 9.6 10.2 MG 1.6* 1.7 -- 1.7 P -- -- 4.1 4.6 Liver Function, Amylase, AND Lipase Recent Labs 12/06/22 1255 12/05/22 1411 ALB 3.5* 4.1 Cardiac Enzymes ABGs Procalcitonin <0.09 ng/mL 0.08 Urine pH, Urine Date Value Ref Range Status 12/04/2022 5.5 5.0 - 8.0 Final Specific Jennings, Ur Date Value Ref Range Status 12/04/2022 1.017 1.005 - 1.030 Final Glucose, Urine Date Value Ref Range Status 12/04/2022 Negative Trace, Negative Final Bilirubin, Urine Date Value Ref Range Status 12/04/2022 Negative Negative Final Ketones, Urine Date Value Ref Range Status 12/04/2022 Negative Trace, Negative Final Hemoglobin/Blood,Ur Date Value Ref Range Status 12/04/2022 Negative Negative, Trace Final Protein, Urine Date Value Ref Range Status 12/04/2022 Trace Trace, Negative Final Urobilinogen Date Value Ref Range Status 12/04/2022 Negative Negative Final Nitrites Date Value Ref Range Status 12/04/2022 Negative Negative Final WBC, Urine Date Value Ref Range Status 12/04/2022 0-5 /HPF 0-5 /HPF Final Latest Reference Range AND Units 12/04/22 12:30 Sodium, Urine Random 14 - 216 mmol/L 26 Creatinine, Ur Random (UCRR) 20.0 - 300.0 mg/dL 149.9 Osmolality, Urine 50 - 1,200 mOsm/kg 416 Micro -MRSA nares negative -Urine strep negative -Sputum cx with few oral keo, no PMNs -Blood cx Ngx1 day -RVP +ve for rhinovirus - Cryptococcus negative -Legionella negative - Histo to be collected - 1,3 B-D-Glucan to be collected Imaging DVT US 12/02 RIGHT SIDE - DEEP VEINS Negative for acute deep vein thrombosis. RIGHT SIDE - SUPERFICIAL VEINS Chronic post-thrombotic change in the small saphenous vein. LEFT SIDE - DEEP VEINS Negative for acute deep vein thrombosis. Chronic post-thrombotic change in the common femoral vein, femoral vein and popliteal vein. Only segments visualized of the posterior tibial veins and peroneal veins. 12/01 CT PE IMPRESSION: Likely chronic right lower lobe segmental pulmonary embolism. Development of mild basilar and dependent groundglass opacities with some volume loss, suggesting atelectasis, although superimposed edema, inflammation or hemorrhage is not excluded. Additional new consolidative opacities in the left lung base suspicious for confluent involvement of the same process versus infectious/inflammatory process such as aspiration pneumonitis. Radiographic follow-up is recommended.. Overall increased size of multiple pulmonary nodules as described. Worsening mediastinal and hilar lymphadenopathy. These could be related to prior history of CLL or renal carcinoma. 12/04 Kidney US IMPRESSION: No hydronephrosis. Assessment and Plan Acti (more content not included)... [facility] 12-03-2022 History of Past i llness Narrative Problem Noted Date Diagnosed Date Resolved Date Elevated troponin 12/03/2022 12/11/2022 Closed left subtrochanteric femur fracture 07/22/2020 07/27/2020 Facial numbness 03/31/2019 04/03/2019 GI bleed 12/31/2018 01/11/2019 Frequency of urination 03/19/201802/11 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 documented as of this encounter (statuses as of 12/13/2022) [facility]08-22-2023 History of Past illness Narrative* Problem Noted Date Diagnosed Date Resolved Date Elevated troponin 12/03/2022 12/11/2022 Closed left subtrochanteric femur fracture 07/22/2020 07/27/2020 Facial numbness 03/31/2019 04/03/2019 GI bleed 12/31/2018 01/11/2019 Frequency of urination 03/19/201802/11 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 documented as of this encounter (statuses as of 12/13/2022) [facility]-2023 History of Past illness Narrative* Problem Noted Date Diagnosed Date Resolved Date Elevated troponin 12/03/2022 12/11/2022 Closed left subtrochanteric femur fracture 07/22/2020 07/27/2020 Facial numbness 03/31/2019 04/03/2019 GI bleed 12/31/2018 01/11/2019 Frequency of urination 03/19/201802/11 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 documented as of this encounter (statuses as of 12/19/2022) [facility]-2023 History of Past illness Narrative* Problem Noted Date Diagnosed Date Resolved Date Elevated troponin 12/03/2022 12/11/2022 Closed left subtrochanteric femur fracture 07/22/2020 07/27/2020 Facial numbness 03/31/2019 04/03/2019 GI bleed 12/31/2018 01/11/2019 Frequency of urination 03/19/201802/11 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 documented as of this encounter (statuses as of 12/20/2022) [facility]20[facility] History of Past illness Narrative* Problem Noted Date Diagnosed Date Resolved Date Elevated troponin 12/03/2022 12/11/2022 Closed left subtrochanteric femur fracture 07/22/2020 07/27/2020 Facial numbness 03/31/2019 04/03/2019 GI bleed 12/31/2018 01/11/2019 Frequency of urination 03/19/201802/11 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 documented as of this encounter (statuses as of 12/20/2022) [facility]20[facility] History of Past illness Narrative* Problem Noted Date Diagnosed Date Resolved Date Elevated troponin 12/03/2022 12/11/2022 Closed left subtrochanteric femur fracture 07/22/2020 07/27/2020 Facial numbness 03/31/2019 04/03/2019 GI bleed 12/31/2018 01/11/2019 Frequency of urination 03/19/201802/11 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 documented as of this encounter (statuses as of 12/24/2022) [facility]20[facility] History of Past illness Narrative* Problem Noted Date Diagnosed Date Resolved Date Elevated troponin 12/03/2022 12/11/2022 Closed left subtrochanteric femur fracture 07/22/2020 07/27/2020 Facial numbness 03/31/2019 04/03/2019 GI bleed 12/31/2018 01/11/2019 Frequency of urination 03/19/201802/11 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 documented as of this encounter (statuses as of 12/25/2022) [facility] History of Past illness Narrative* Problem Noted Date Diagnosed Date Resolved Date Elevated troponin 12/03/2022 12/11/2022 Closed left subtrochanteric femur fracture 07/22/2020 07/27/2020 Facial numbness 03/31/2019 04/03/2019 GI bleed 12/31/2018 01/11/2019 Frequency of urination 03/19/201802/11 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 documented as of this encounter (statuses as of 12/27/2022) [facility] History of Past illness Narrative* Problem Noted Date Diagnosed Date Resolved Date Elevated troponin 12/03/2022 12/11/2022 Closed left subtrochanteric femur fracture 07/22/2020 07/27/2020 Facial numbness 03/31/2019 04/03/2019 GI bleed 12/31/2018 01/11/2019 Frequency of urination 03/19/201802/11 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 documented as of this encounter (statuses as of 12/30/2022) [facility] History of Past illness Narrative* Problem Noted Date Diagnosed Date Resolved Date Elevated troponin 12/03/2022 12/11/2022 Closed left subtrochanteric femur fracture 07/22/2020 07/27/2020 Facial numbness 03/31/2019 04/03/2019 GI bleed 12/31/2018 01/11/2019 Frequency of urination 03/19/201802/11 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 documented as of this encounter (statuses as of 01/01/2023) [facility] History of Past illness Narrative* Problem Noted Date Diagnosed Date Resolved Date Elevated troponin 12/03/2022 12/11/2022 Closed left subtrochanteric femur fracture 07/22/2020 07/27/2020 Facial numbness 03/31/2019 04/03/2019 GI bleed 12/31/2018 01/11/2019 Frequency of urination 03/19/201802/11 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 documented as of this encounter (statuses as of 01/04/2023) [facility] History of Past illness Narrative* Problem Noted Date Diagnosed Date Resolved Date Elevated troponin 12/03/2022 12/11/2022 Closed left subtrochanteric femur fracture 07/22/2020 07/27/2020 Facial numbness 03/31/2019 04/03/2019 GI bleed 12/31/2018 01/11/2019 Frequency of urination 03/19/201802/11 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 documented as of this encounter (statuses as of 01/11/2023) [facility] History of Past illness Narrative* Problem Noted Date Diagnosed Date Resolved Date Elevated troponin 12/03/2022 12/11/2022 Closed left subtrochanteric femur fracture 07/22/2020 07/27/2020 Facial numbness 03/31/2019 04/03/2019 GI bleed 12/31/2018 01/11/2019 Frequency of urination 03/19/201802/11 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 documented as of this encounter (statuses as of 01/18/2023) [facility] History of Past illness Narrative* Problem Noted Date Diagnosed Date Resolved Date Elevated troponin 12/03/2022 12/11/2022 Closed left subtrochanteric femur fracture 07/22/2020 07/27/2020 Facial numbness 03/31/2019 04/03/2019 GI bleed 12/31/2018 01/11/2019 Frequency of urination 03/19/201802/11 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 documented as of this encounter (statuses as of 01/18/2023) [facility] History of Past illness Narrative* Problem Noted Date Diagnosed Date Resolved Date Elevated troponin 12/03/2022 12/11/2022 Closed left subtrochanteric femur fracture 07/22/2020 07/27/2020 Facial numbness 03/31/2019 04/03/2019 GI bleed 12/31/2018 01/11/2019 Frequency of urination 03/19/201802/11 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 documented as of this encounter (statuses as of 01/22/2023) [facility] History of Past illness Narrative* Problem Noted Date Diagnosed Date Resolved Date Elevated troponin 12/03/2022 12/11/2022 Closed left subtrochanteric femur fracture 07/22/2020 07/27/2020 Facial numbness 03/31/2019 04/03/2019 GI bleed 12/31/2018 01/11/2019 Frequency of urination 03/19/201802/11 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 documented as of this encounter (statuses as of 01/31/2023) [facility] History of Past illness Narrative* Problem Noted Date Diagnosed Date Resolved Date Elevated troponin 12/03/2022 12/11/2022 Closed left subtrochanteric femur fracture 07/22/2020 07/27/2020 Facial numbness 03/31/2019 04/03/2019 GI bleed 12/31/2018 01/11/2019 Frequency of urination 03/19/201802/11 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 documented as of this encounter (statuses as of 02/04/2023) [facility] History of Past illness Narrative* Problem Noted Date Diagnosed Date Resolved Date Elevated troponin 12/03/2022 12/11/2022 Closed left subtrochanteric femur fracture 07/22/2020 07/27/2020 Facial numbness 03/31/2019 04/03/2019 GI bleed 12/31/2018 01/11/2019 Frequency of urination 03/19/201802/11 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 documented as of this encounter (statuses as of 03/17/2023) [facility] History of Past illness Narrative* Problem Noted Date Diagnosed Date Resolved Date Elevated troponin 12/03/2022 12/11/2022 Closed left subtrochanteric femur fracture 07/22/2020 07/27/2020 Facial numbness 03/31/2019 04/03/2019 GI bleed 12/31/2018 01/11/2019 Frequency of urination 03/19/201802/11 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 documented as of this encounter (statuses as of 05/19/2023) [facility] History of Past illness Narrative* Problem Noted Date Diagnosed Date Resolved Date Elevated troponin 12/03/2022 12/11/2022 Closed left subtrochanteric femur fracture 07/22/2020 07/27/2020 Facial numbness 03/31/2019 04/03/2019 GI bleed 12/31/2018 01/11/2019 Frequency of urination 03/19/201802/11 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 documented as of this encounter (statuses as of 05/28/2023) [facility] History of Past illness Narrative* Problem Noted Date Diagnosed Date Resolved Date Elevated troponin 12/03/2022 12/11/2022 Closed left subtrochanteric femur fracture 07/22/2020 07/27/2020 Facial numbness 03/31/2019 04/03/2019 GI bleed 12/31/2018 01/11/2019 Frequency of urination 03/19/201802/11 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 documented as of this encounter (statuses as of 05/30/2023) [facility] History of Past illness Narrative* Problem Noted Date Diagnosed Date Resolved Date Elevated troponin 12/03/2022 12/11/2022 Closed left subtrochanteric femur fracture 07/22/2020 07/27/2020 Facial numbness 03/31/2019 04/03/2019 GI bleed 12/31/2018 01/11/2019 Frequency of urination 03/19/201802/11 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 documented as of this encounter (statuses as of 06/02/2023) [facility] History of Past illness Narrative* Problem Noted Date Diagnosed Date Resolved Date Elevated troponin 12/03/2022 12/11/2022 Closed left subtrochanteric femur fracture 07/22/2020 07/27/2020 Facial numbness 03/31/2019 04/03/2019 GI bleed 12/31/2018 01/11/2019 Frequency of urination 03/19/201802/11 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 documented as of this encounter (statuses as of 06/02/2023) [facility] History of Past illness Narrative* Problem Noted Date Diagnosed Date Resolved Date Elevated troponin 12/03/2022 12/11/2022 Closed left subtrochanteric femur fracture 07/22/2020 07/27/2020 Facial numbness 03/31/2019 04/03/2019 GI bleed 12/31/2018 01/11/2019 Frequency of urination 03/19/201802/11 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 documented as of this encounter (statuses as of 06/05/2023) [facility] History of Past illness Narrative* Problem Noted Date Diagnosed Date Resolved Date Elevated troponin 12/03/2022 12/11/2022 Closed left subtrochanteric femur fracture 07/22/2020 07/27/2020 Facial numbness 03/31/2019 04/03/2019 GI bleed 12/31/2018 01/11/2019 Frequency of urination 03/19/201802/11 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 documented as of this encounter (statuses as of 06/23/2023) [facility] History of Past illness Narrative* Problem Noted Date Diagnosed Date Resolved Date Elevated troponin 12/03/2022 12/11/2022 Closed left subtrochanteric femur fracture 07/22/2020 07/27/2020 Facial numbness 03/31/2019 04/03/2019 GI bleed 12/31/2018 01/11/2019 Frequency of urination 03/19/201802/11 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 documented as of this encounter (statuses as of 06/26/2023) [facility] History of Past illness Narrative* Problem Noted Date Diagnosed Date Resolved Date Elevated troponin 12/03/2022 12/11/2022 Closed left subtrochanteric femur fracture 07/22/2020 07/27/2020 Facial numbness 03/31/2019 04/03/2019 GI bleed 12/31/2018 01/11/2019 Frequency of urination 03/19/201802/11 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 documented as of this encounter (statuses as of 07/01/2023) [facility] History of Past illness Narrative* Problem Noted Date Diagnosed Date Resolved Date Elevated troponin 12/03/2022 12/11/2022 Closed left subtrochanteric femur fracture 07/22/2020 07/27/2020 Facial numbness 03/31/2019 04/03/2019 GI bleed 12/31/2018 01/11/2019 Frequency of urination 03/19/201802/11 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 documented as of this encounter (statuses as of 07/03/2023) [facility] History of Past illness Narrative* Problem Noted Date Diagnosed Date Resolved Date Elevated troponin 12/03/2022 12/11/2022 Closed left subtrochanteric femur fracture 07/22/2020 07/27/2020 Facial numbness 03/31/2019 04/03/2019 GI bleed 12/31/2018 01/11/2019 Frequency of urination 03/19/201802/11 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 documented as of this encounter (statuses as of 07/15/2023) [facility] History of Past illness Narrative* Problem Noted Date Diagnosed Date Resolved Date Elevated troponin 12/03/2022 12/11/2022 Closed left subtrochanteric femur fracture 07/22/2020 07/27/2020 Facial numbness 03/31/2019 04/03/2019 GI bleed 12/31/2018 01/11/2019 Frequency of urination 03/19/201802/11 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 documented as of this encounter (statuses as of 07/17/2023) [facility] History of Past illness Narrative* Problem Noted Date Diagnosed Date Resolved Date Elevated troponin 12/03/2022 12/11/2022 Closed left subtrochanteric femur fracture 07/22/2020 07/27/2020 Facial numbness 03/31/2019 04/03/2019 GI bleed 12/31/2018 01/11/2019 Frequency of urination 03/19/201802/11 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 documented as of this encounter (statuses as of 07/18/2023) [facility] History of Past illness Narrative* Problem Noted Date Diagnosed Date Resolved Date Elevated troponin 12/03/2022 12/11/2022 Closed left subtrochanteric femur fracture 07/22/2020 07/27/2020 Facial numbness 03/31/2019 04/03/2019 GI bleed 12/31/2018 01/11/2019 Frequency of urination 03/19/201802/11 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 documented as of this encounter (statuses as of 07/31/2023) [facility]-2023 Miscellaneous Notes* Telephone Encounter - Alyse Quinn - 12/03/2022 10:54 AM EDT Pt currently admitted to [facility] for blood clots in right lung. They did another US of his legs and they were cleared. documented [facility] this [facility] Miscellaneous Notes* Telephone Encounter - Bijal Rowan - 11/29/2022 11:46 AM EDT Daughter called today. Patient could barely get out of bed. He is not sleeping well. He has had a gradual decline with fatigue. They will go to main [facility] ER. Spoke with patient at length. (>25 minutes discussing his medical history and multiple issues with each specialty). He has no SOB within the conversation. He questions what Hgb level will you transfuse? Tried to explain 8.6, although low, transfusion not medically required. documented in this [facility] Miscellaneous Notes* Telephone Encounter - Ary Santoro RN - 11/28/2022 4:49 PM EDT Patient notified * Telephone Encounter - Ary Santoro RN - 11/28/2022 2:04 PM EDT Pt states the Breo and Trillegy didn't help at all with his SOB- States he is physically exhausted constantly since the end of September when he got some blood- Pt is asking if there is any way for him to get a blood transfusion for a hgb at 8.6 instead of thenormal 7? States he is this tired because of his low hgb States he can't sleep, he can't eat and has lost weight- States the narcolepsy drug isn't helping either I asked him if he's wheezing and he didn't really answer me- states there is some sound from his lungs when he breathes Please advise * Telephone Encounter - Pratibha Haque MA - 11/28/2022 1:56 PM EDT Sent chat to clinical team to advise to triage. * Telephone Encounter - Alyse Quinn - 11/28/2022 12:13 PM EDT Pt calling in stating that he is totally exhausted and WAY short on breath. The medications are nothelping him at all. Pt is desperate for answers and wants to know where to go from here. Please advise pt documented [facility] Miscellaneous Notes* Telephone Encounter - Quentin Chavira RN - 11/27/2022 3:39 PM EDT Called pt and informed Dr Dale's response below, pt verbalized understanding. Quentin Chavira LPN * Telephone Encounter - Halle Dale MD - 11/27/2022 12:33 PM EDT Hb 8.6. No blood, please let him know. We can repeat blood count in a week, order is in. * Telephone Encounter - Derek Horne MA - 11/27/2022 12:27 PM EDT Pt left a message he got his labs drawn and believes he is eligible to receive a unit of pRBC, please advise Derek Horne MA documented in this [facility] History of Present illness Narrative* Macie Thacker APRN.STUDIO PRODUCER - 11/27/2022 12:54 PM EDT Virtualist Distance Health Note (CDM/TCM//CC HC/H@[facility] escalations) I have communicated my name and active licensure. The patient's identity and physical location wereverified at the time of this visit. Either the patient or their legal artist's representative has been informed of the risks and benefits of -- and alternatives to -- treatment through a remote evaluation andconsents to proceed with the evaluation remotely. Triage source: Chronic Disease Management Contacted by: Telephone History of present illness: Hx CLL, anemia, CKD Hgb yesterday 8.6 PAtient reporting worsening SOB and lightheadedness Usually Oncologist calls him when Hgb is low but he hasn't heard from them yet. Denies CP, dizziness Past medical history, past surgical history, family history and social history reviewed and updatedas indicated in EMR. REVIEW OF SYSTEMS: Review of Systems VITAL SIGNS: (if available) There were no vitals taken for this visit. Physical Exam (if video visit was performed) Physical Exam Assessment/Plan: ASSESSMENT/PLAN: 1. Iron deficiency anemia due to chronic blood loss - ICD9: 280.0, ICD10: D50.0 (primary diagnosis) 2. SOB (shortness of breath) - ICD9: 786.05, ICD10: R06.02 3. Lightheadedness - ICD9: 780.4, ICD10: R42 -Go to ER with worsening associated anemia symptoms -Or call Oncologist to see what their recommendations are Disposition: Patient instructed to go to the ED A total of 20 minutes was spent providing medical care using telemedicine. Signed in as Primary Virtualist, Secondary Virtualist, or [facility] Telehealth provider: Primary SIGNATURE: Macie Chatman APRN.CNP PATIENT NAME: Adina David DATE: November 27, 2022 documented [facility] History of Present illness Narrative* Leslie Moon APRN.CNP - 11/26/2022 10:46 AM EDT PROGRESS NOTE 11/26/2022 Chief Complaint: Mr. Adina David is here to follow up his hematological conditions (CLL, MPN, VTE, bleeding) Interval History: He comes in today to see me about all of his health problems. He has SOB, insomnia and feels like no one is helping him. We discussed his blood related issues as well. No new symptoms of CLL progression. He does feel like his blood counts are a little low. Very tearful and frustrated. ACTIVE PROBLEM LIST Multiple Lipomas Gerd (Gastroesophageal Reflux Disease) H/O Resection of Large Bowel Essential Hypertension Renal Cancer, Right (Hcc) Cll (Chronic Lymphocytic Leukemia) (Hcc) Iron Deficiency Anemia Iron Adverse Reaction Nocturia Bph (Benign Prostatic Hyperplasia) History of Right Nephrectomy Nstemi (Non-St Elevated Myocardial Infarction) (Hcc) Stage 2 Chronic Kidney Disease Post Ptca S/P Drug Eluting Coronary Stent Placement Hypertriglyceridemia Rhodes Esophagus Deng (Acute Kidney Injury) (Hcc) Leukocytosis Essential Thrombocythemia (Hcc) Ckd (Chronic Kidney Disease) Stage 3, Gfr 30-59 Ml/Min (Hcc) 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) Leg Swelling Cira (Obstructive Sleep Apnea) Severe Anemia Severe Protein-Calorie Malnutrition (Hcc) Acute Blood Loss Anemia Covid-19 Virus Infection Obesity, Class I, Bmi 30-34.9 Vitamin D Deficiency Iron Deficiency Anemia Due to Chronic Blood Loss PAST SURGICAL HISTORY Procedure Laterality Date BOWEL RESECTION HX 2005 Partial COLONOSCOPY 01/07/2019 hemorrhoids and diverticulosis CYSTOSCOPY 2004 2004 EGD 11/2019 x3 EGD 12/31/2018 Rhodes's, Duodenal erosions. Dr. Enio Degroot. HEMORRHOID SURGERY HX 1999 LAP NEPHRECTOMY Right 2018 DR. MCDONALD PAST SURGICAL HISTORY OF hydrocel PAST SURGICAL HISTORY OF 07/23/2020 left femur REPAIR EPIGASTRIC HERNIA,REDUC STENT PLACEMENT 2018 MARTIN LAD TONSILLECTOMY AND ADENOIDECTOMY HX ads a child Social History Tobacco Use Smoking status: Former Years: 10 Types: Cigars, Cigarettes Quit date: 12/21/1990 Years since quittin.9 Smokeless tobacco: Never Vaping Use Vaping Use: Never used Substance Use Topics Alcohol use: Yes Comment: very little Drug use: Never Review of Systems Constitutional: Positive for fatigue. Negative for chills and fever. HENT: Negative. Respiratory: Positive for cough and shortness of breath. Cardiovascular: Positive for leg swelling. Gastrointestinal: Positive for abdominal distention. Musculoskeletal: Positive for arthralgias. Skin: Negative. Neurological: Negative. Psychiatric/Behavioral: Positive for sleep disturbance. Past Treatment Plans NON-CHEMO 1 Plan Name Cycles Start Date Discontinue Date Discontinue Reason Discontinue User AMB IRON SUCROSE 200 X 5 DOSES - Q14D 1 of 1 cycle started 02/26/2022 08/14/2022 Treatment Complete Shahla Walker, MEHUL FERRIC DERISOMALTOSE D1 3 of 3 cycles started 02/02/2021 11/16/2021 Other (=) Amoline, Bismark, RPh FERRIC CARBOXYMALTOSE 15 D1,8 4 of 4 cycles started 10/05/2019 02/02/2021 Other (non-formulary item)Yehuda Garrison, RPh FERRIC CARBOXYMALTOSE 15 D1,8 1 of 1 cycle started 07/27/2019 09/27/2019 Other Rehmus, Sheela Hoogland FERRIC CARBOXYMALTOSE 15 D1,8 3 of 3 cycles started 01/27/2019 07/27/2019 Other Rehmus, Sheela Hoogland FERRIC CARBOXYMALTOSE 15 D1,8 1 of 1 cycle started 10/22/2017 12/28/2018 Other Amoline (Pharmacist)Bismark NON-CHEMO 2 Plan Name Cycles Start Date Discontinue Date Discontinue Reason Discontinue User REGIONAL - TRANSFUSION, PRBC AND PLTS of 1 cycle started 04/04/2021 06/09/2021 Other (D7 cutover) Elisa Ocampo, RN Current Outpatient Medications Medication Sig Dispense Refill hydroxyurea (HYDREA) 500 mg capsule Take 2 capsules by mouth once daily 60 capsule 0 modafinil (PROVIGIL) 200 mg tablet Take 1 tablet by mouth once daily for 30 days. 30 tablet 0 omeprazole (PRILOSEC) 40 mg capsule Take 1 capsule by mouth once daily 90 capsule 3 zolpidem (AMBIEN) 5 mg tablet Take 1 tablet by mouth at bedtime as needed for up to 90 days. 30 tablet 2 fluticasone/umeclidin/vilanter (TRELEGY ELLIPTA INHALATION) Inhale as instructed. Fluticasone Furoate 27.5 mcg/actuation nasal spray Use 2 Sprays in each nostril once daily. albuterol HFA (PROVENTIL HFA, VENTOLIN HFA) 90 mcg/actuation inhaler INHALE 1 TO 2 PUFFS BY MOUTH EVERY 6 HOURS NEEDED FOR WHEEZING 9 g 0 evolocumab (REPATHA SURECLICK) 140 mg/mL pen injector Inject 140 mg subcutaneously every 2 weeks. (Patient taking differently: Inject 140 mg subcutaneously once every month. Every 1 month) 4 Each 5 magnesium oxide (MAG-OX) 400 mg (241.3 mg magnesium) tablet Take 0.5 tablets by mouth once daily. 0.5 tablet 90 tablet 3 metoprolol tartrate, short acting, (LOPRESSOR) 50 mg tablet Take 1 tablet by mouth twice daily 180 tablet 3 CPAP valACYclovir (VALTREX) 1 gram One po bid for 3 days as needed for cold sores 30 tablet 11 BABY ASPIRIN ORAL Take 81 mg by mouth once daily. calcitriol (ROCALTROL) 0.25 mcg capsule Take 0.25 mcg by mouth once daily. ergocalciferol 50,000 unit capsule (VITAMIN D2, DRISDOL) once every month. calcium carbonate (CALCIUM ANTACID) 500 mg chew One po bid prn gastritis 60 tablet 5 fluticasone-vilanterol (BREO ELLIPTA) 200-25 mcg/dose inhaler Inhale 1 Inhalation as instructed once daily. 60 Each 2 Current Facility-Administered Medications Medication Dose Route Frequency Provider Last Rate Last Admin octreotide LAR 20 mg depot (monthly) injection (SandoSTATIN LAR) 20 mg INTRAMUSCULAR q 1 MONTH Hortencia Gallardo MD ALLERGIES Allergen Reactions Doxycycline Intolerance Rash, diarrhea Penicillin Hives Penicillin V Potass* Other: See Comments Hemoglobin (g/dL) Date Value 11/11/2022 9.8 05/22/2021 9.6 Hematocrit (%) Date Value 11/11/2022 33.4 05/22/2021 34.1 WBC (k/uL) Date Value 11/11/2022 35.72 05/22/2021 59.56 Platelet Count (k/uL) Date Value 11/11/2022 686 05/22/2021 1,867 BP 131/71 Pulse 106 Temp 36.3 C (97.3 F) (Temporal) Resp 18 Ht 177.8 cm (5' 10 ) Wt 84 kg(185 lb 3.2 oz) SpO2 96% BMI 26.57 kg/m Last 3 Encounter BP Readings: Date: BP: 11/26/2022 131/71 11/21/2022 120/72 11/19/2022 144/72 Physical Exam Vitals and nursing note reviewed. Constitutional: General: He is not in acute distress. Appearance: Normal appearance. He is not ill-appearing. HENT: Head: Normocephalic and atraumatic. Cardiovascular: Rate and Rhythm: Normal rate and regular rhythm. Pulses: Normal pulses. Heart sounds: Normal heart sounds. Pulmonary: Effort: Pulmonary effort is normal. Breath sounds: Normal breath sounds. Abdominal: General: Bowel sounds are normal. There is no distension. Palpations: Abdomen is soft. Tenderness: There is no abdominal tenderness. Musculoskeletal: General: No swelling. Normal range of motion. Cervical back: Normal range of motion and neck supple. Lymphadenopathy: Head: Right side of head: No submental, submandibular, tonsillar or occipital adenopathy. Left side of head: No submental, submandibular, tonsillar or occipital adenopathy. Cervical: Right cervical: No superficial cervical adenopathy. Left cervical: No superficial cervical adenopathy. Upper Body: Right upper body: No supraclavicular, axillary or pectoral adenopathy. Left upper body: No supraclavicular, axillary or pectoral adenopathy. Skin: General: Skin is warm and dry. Coloration: Skin is pale. Skin is not jaundiced. Neurological: General: No focal deficit present. Mental Status: He is alert and oriented to person, place, and time. Cranial Nerves: No cranial nerve deficit. Psychiatric: Mood and Affect: Mood normal. Behavior: Behavior normal. Thought Content: Thought content normal. Imaging: DVT scan 10/17/2022 Positive study for chronic proximal DVT in the left lower extremity. No evidence of proximal DVT inthe right lower extremity. Nondiagnostic study for calf DVT in the left lower extremity. No evidence of calf DVT in the right lower extremity. Positive study for chronic superficial thrombophlebitis in the imaged segments of the left and right lower extremities as detailed above. CT chest w/ IV contrast on 08/13/2022 1. No consolidation or pleural effusion. Mild peribronchial thickening. 2. Few pulmonary nodules are new since 2020, possibly inflammatory however given the history of malignancy consider CT abdomen and pelvis with contrast for further evaluation and possible follow-up CT of the chest in 3 months to assess for stability. 3. Several lymph nodes in the chest are mildly decreased in size compared to 2020. Partially imagedlymph nodes in the upper abdomen as well. US kidney/bladder on 02/13/2022 Unremarkable left kidney. Right nephrectomy. CT A/P w/ IV contrast on 01/19/2022 ([facility]) Right inguinal hernia containing loops of bowel. Early small bowel obstruction is suspected, with source of obstruction at the right inguinal hernia. Follow up is recommended. Numerous borderline to slightly enlarged mesenteric lymph nodes with the right mid to lower abdomen. Follow up is recommended. Mild hydronephrosis of the left kidney with moderate to large amount of perinephritic fat stranding. There is hydroureter on the left with question caliber change of the ureter near the level of the iliac vessels versus obstruction at the level of the UVJ. No obvious renal stone demonstrated. Follow up urologic consultation suggested. CT C/A/P w/o contrast 01/23/2021 1. Enlarged lymph node paraesophageal region of the posterior mediastinum stable since prior exam. Of unclear etiology. Metastatic disease not excluded. 2. Increase in size of ovoid nodule along left hemidiaphragm. Metastatic disease is a consideration. This nodule would be difficult to percutaneously biopsy given its size and location. Follow-up is recommended. 3. New ovoid density posteriorly at the left lung base. It may represent new very small pleural effusion. Recommend attention to this on follow-up scans. 4. Extensive lymph node enlargement throughout the periportal region and throughout the mesenteric fat in the right abdomen. Not significantly changed since prior CT scan 07/19/2020. Stable pelvic and inguinal lymph node prominence. 5. Status post open reduction internal fixation proximal left femur fracture. Fracture line still visible. Pathology: none Assessment and Plan: Mr. Adina David is a pleasant 67 yo M with multiple comorbidity including clear cell RCC, CLL, MPN, DVT, CAD, CKD III and chronic anemia, who presents to follow up. 1. Chronic macrocytic anemia - Hb baseline 8-10. Causes of chronic anemia is multifactorial, including CKDIII, GIB, iron deficiency, CLL, MPN on hydrea - drop in H/H since 06/2022 when he resumed Eliquis 2.5 mg BID for new DVT. Required pRBC transfusion on 08/16, 08/28, and 10/10. He underwent endoscope at [facility] on 10/09/2022, found bleeders s/p endoscopic hemastatic treatment. Monitor blood counts monthly, transfusion support as needed. Avoid iron infusion due to MPN, getting blood drawn today 2. ccRCC - diagnosed in 05/2017 - s/p right radical nephrectomy, clear cell RCC, WHO/ISUP grade 2, with renal vein invasion and renal vein thrombosis, 9 cm in size, pT3a pNx - no adjuvant treatment - CT A/P from 01/19/2022 and US kidney/bladder from 02/13/2022 were reviewed showing BARNEY. - recent CT chest from 08/13/2022 was reviewed showing few pulmonary nodules <1 cm in size, nonspecific, favor inflammatory or reactive process. CT chest set up for February. 3. CLL - diagnosed in 04/2017, peripheral blood flow showed a CD5-positive B-cell lymphoproliferative disorder. The immunophenotype is consistent with CLL/SLL - CT C/A/P showed mediastinal and abdominal adenopathy, stable compared scan in 07/2020, likely fromCLL/SLL process. - Su stage I. No indication to initiate treatment, no new sx 4. Essential thrombocythemia - platelet count over 1000K, without clear secondary causes - CALR no variant detected; JAK2 V617F not detected; BCR-ABL not detected. MPL-a sequence change ofc.1502T>C in exon 10 was detected at approximately 18% allelic proportion; a sequence change of c. 1514G>A (p.Nsi226Wle) in exon 10 was detected at approximately 16% allelic proportion - he was started on hydrea since 04/2020, 500 mg BID - labs from 10/16/2022 was reviewed WBC 37.76, Hb 10.2, Hct 34.7, MCV 106.8, platelet 615K, ANC 6.42,lymphocyte 28.70. Continue hydrea at the same dose, along with baby ASA . Eliquis was stopped 5. DVT - 03/14/2021, DVT of indeterminate age in the common femoral vein throughout. Possibly provoked, as he had left femur subtrochanteric fracture s/p internal fixation with persistent swelling postop - on Eliquis 5 mg BID since 03/2021. Dose reduce to 2.5 mg BID in 05/2021 due to renal dysfunction and major GIB. D/C Eliquis in 09/2021. 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 He's back on Eliquis 2.5 mg BID since 06/3022, compliant but with new GIB s/p endoscopic hemostatic treatment. Repeat b/l LE DVT scan on 10/17/2022 showed chronic proximal DVT in LLE. He was taken off of Eliquis I assume due to his blood counts. Recent US DVT shows chronic DVT in hisLLE. 6. BPH - LUTS from BPH. - PSA 8.67. - prior prostate biopsy showed no evidence of cancer. - Being followed and managed by urology, no change 7. GIB - admitted to [facility] in 04/2021 with Hb 4.8, transfused 7 units pRBC He underwent EGD and colonoscopy were normal. Capsule endoscopy reviewed bleeding lesions. Push enteroscopy done April 2021 which showed bleeding AVMs - Currently no active bleeding. He follows GI. Octreotide was denied by insurance. If bleed again will need double balloon scope. - dropping H/H since 06/2022 when he resumed Eliquis 2.5 mg BID. He denied overt bleeding but required pRBC transfusion on 08/16, 08/28, 10/10. He underwent endoscope at [facility] on 10/09/2022, found bleeders s/p endoscopic hemostatic treatment. Count check monthly, transfusion as needed. - Avoid further iron supplement due to his MPN. Mild iron deficiency is expected and allowed. Getting blood counts done today 8. Insomnia and behavior problem - I declined his request to double the dose of ambien, placed referral to sleep medicine, also encourage him to discuss insomnia management with PCP - depressed, agitated, frustrated about his health issues. Encourage him to see psychology - He has recently been placed on Provigil by pulmonary. This has a half life of 15 hours and is used for narcolepsy, which could be counteracting the effects of sleeping medication. Given his labile emotions of late, and inability to sleep, (his sleep domenic states he is likely only sleeping around 4 hours daily) I asked him to discuss getting off this medication quickly if it does not seem to be eff ective for his breathing. He may even benefit from changing from zolpidem to Remeron or similar medication at bedtime. Will defer to his PCP for this. Already scheduled for future appointment for CT scan and follow up with Dr. Dale. I would be happy to see him again sooner if he would like and I let him know that. >50% of this visit was spent in discussion and counseling. I spent approximately 60 minutes in consultation with him. Leslie Moon APRN.STUDIO PRODUCER documented in this encounterSelect [facility] Miscellaneous Notes* Telephone Encounter - Quentin Chavira RN - 11/25/2022 2:[address] Dale's request, Psychology (new patient exam) with Dr Yoselin Dobbs setup for 12/09/22, CT Chest scheduled for 02/24/23, Follow up OV scheduled for 03/05. Called pt to notify, pt verbalized understanding. Quentin Chavira LPN documented in this encounterSelect [facility]23 Miscellaneous Notes* Telephone Encounter - Emilee Lake Ma - 11/21/2022 5:29 PM EDT Lmom. Tried to initiate auth through covermymeds but pt is not being found under insurance we have listed. Please verify pts insurance info. * Telephone Encounter - Emilee Lake Ma - 11/21/2022 11:13 AM EDT Auth for Sleepiness Due To Obstructive Sleep Apnea? * Telephone Encounter - Kaylynn Hoover - 11/21/2022 9:32 AM EDT The New medication PROVIGIL is needing a Prior Auth Pharmacy say the insurance is wanting to know what is the NEED for this medications. documented in this encounterSelect [facility] History of Present illness Narrative* Ulises Ramos, - 11/21/2022 9:24 AM EDT Here to discuss his chronic fatigue. The cpap does not seem to help this. He has stopped eliquis asper hematology due to bleeding and cost. His abd pain is his usual discomfort and his real issue ishe would like something to get him some energy ans he struggles to do things due to extreme tiredness. 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 glover Diverticulitis of intestine with perforation 2004 WITH FISTULA Essential hypertension FHx: colon cancer Mother GERD (gastroesophageal reflux disease) HAS GI - SLEZAK History of chickenpox History of scarlet fever History of spinal fracture 1973 L3-4 Hx of squamous cell carcinoma Hydrocele in adult Hypertriglyceridemia Hypokalemia 03/31/2019 Hypomagnesemia 03/31/2019 Leukocytosis 03/31/2019 Lipoma of back NSTEMI (non-ST elevated myocardial infarction) (HCC) Personal history of skin cancer bcc (r shoulder) 2015, scc (l lateral lower leg) 2018 Renal cancer (HCC) Stage 3 Sleep apnea CPAP PAST SURGICAL HISTORY Procedure Laterality Date BOWEL RESECTION HX 2005 Partial COLONOSCOPY 01/07/2019 hemorrhoids and diverticulosis CYSTOSCOPY 2004 2004 EGD 11/2019 x3 EGD 12/31/2018 Rhodes's, Duodenal erosions. Dr. Enio Degroot. HEMORRHOID SURGERY HX 1999 LAP NEPHRECTOMY Right 2018 DR. 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 6 CUPS/DAY LIVES AT HOME WITH NO PETS NOREEN DAUGHTER = NO GRANDKIDS YET RIDE HORSES Allergies: ALLERGIES Allergen Reactions Doxycycline Intolerance Rash, diarrhea Penicillin Hives Penicillin V Potass* Other: See Comments Medications: modafinil (PROVIGIL) 200 mg tablet^Take 1 tablet by mouth once daily for 30 days.^Disp: 30 tablet^Rfl: 0 hydroxyurea (HYDREA) 500 mg capsule^Take 2 capsules by mouth once daily^Disp: 60 capsule^Rfl: 0 omeprazole (PRILOSEC) 40 mg capsule^Take 1 capsule by mouth once daily^Disp: 90 capsule^Rfl: 3 zolpidem (AMBIEN) 5 mg tablet^Take 1 tablet by mouth at bedtime as needed for up to 90 days.^Disp: 30 tablet^Rfl: 2 fluticasone/umeclidin/vilanter (TRELEGY ELLIPTA INHALATION)^Inhale as instructed.^Disp: ^Rfl: Fluticasone Furoate 27.5 mcg/actuation nasal spray^Use 2 Sprays in each nostril once daily.^Disp: ^Rfl: fluticasone-vilanterol (BREO ELLIPTA) 200-25 mcg/dose inhaler^Inhale 1 Inhalation as instructed once daily.^Disp: 60 Each^Rfl: 2 albuterol HFA (PROVENTIL HFA, VENTOLIN HFA) 90 mcg/actuation inhaler^INHALE 1 TO 2 PUFFS BY MOUTH EVERY 6 HOURS NEEDED FOR WHEEZING^Disp: 9 g^Rfl: 0 evolocumab (REPATHA SURECLICK) 140 mg/mL pen injector^Inject 140 mg subcutaneously every 2 weeks.^Disp: 4 Each^Rfl: 5 (Patient taking differently: Inject 140 mg subcutaneously once every month. Every1 month) apixaban (ELIQUIS) 2.5 mg tab(s)^Take 1 tablet by mouth twice daily.^Disp: 60 tablet^Rfl: 4 magnesium oxide (MAG-OX) 400 mg (241.3 mg magnesium) tablet^Take 0.5 tablets by mouth once daily. 0.5 tablet^Disp: 90 tablet^Rfl: 3 metoprolol tartrate, short acting, (LOPRESSOR) 50 mg tablet^Take 1 tablet by mouth twice daily^Disp: 180 tablet^Rfl: 3 CPAP^^Disp: ^Rfl: valACYclovir (VALTREX) 1 gram^One po bid for 3 days as needed for cold sores^Disp: 30 tablet^Rfl: 11 BABY ASPIRIN ORAL^Take 81 mg by mouth once daily.^Disp: ^Rfl: calcitriol (ROCALTROL) 0.25 mcg capsule^Take 0.25 mcg by mouth once daily.^Disp: ^Rfl: ergocalciferol 50,000 unit capsule (VITAMIN D2, DRISDOL)^once every month. ^Disp: ^Rfl: calcium carbonate (CALCIUM ANTACID) 500 mg chew^One po bid prn gastritis^Disp: 60 tablet^Rfl: 5 Problem List: ACTIVE PROBLEM LIST Deng (Acute Kidney Injury) ([facility]) - 01/07/2019 (D priority) Iron Deficiency Anemia Due to Chronic Blood Loss - 02/19/2022 Vitamin D Deficiency - 07/17/2021 Obesity, Class I, Bmi 30-34.9 - 05/28/2021 Acute Blood Loss Anemia - 05/16/2021 Covid-19 Virus Infection - 05/16/2021 Severe Protein-Calorie Malnutrition (Hcc) - 05/09/2021 Severe Anemia - 05/02/2021 Cira (Obstructive Sleep Apnea) - 05/01/2021 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) - 03/14/2021 Leg Swelling - 03/14/2021 Leukocytosis - 03/31/2019 Essential Thrombocythemia (Hcc) - 03/31/2019 Ckd (Chronic Kidney Disease) Stage 3, Gfr 30-59 Ml/Min ([facility]) - 03/31/2019 Hypertriglyceridemia 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 S/P Drug Eluting Coronary Stent Placement - 11/25/2018 Stage 2 Chronic Kidney Disease - 11/10/2018 Nstemi (Non-St Elevated Myocardial Infarction) ([facility]) - 10/24/2018 Bph (Benign Prostatic Hyperplasia) - 10/05/2018 History of Right Nephrectomy - 10/05/2018 Nocturia - 03/19/2018 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 Cll (Chronic Lymphocytic Leukemia) ([facility]) - 06/13/2017 Iron Deficiency Anemia - 06/13/2017 Renal Cancer, Right ([facility]) - 04/29/2017 Essential Hypertension Multiple Lipomas Gerd (Gastroesophageal Reflux Disease) Comment: HAS GI - TRACE H/O Resection of Large Bowel - 04/14/2004 Comment: DR. SUAREZ Review of Systems Constitutional: Positive for fatigue. Respiratory: Negative. Cardiovascular: Negative. Physical Exam Cardiovascular: Rate and Rhythm: Regular rhythm. Heart sounds: Normal heart sounds. Pulmonary: Breath sounds: Rhonchi present. Musculoskeletal: Right lower leg: No edema. Left lower leg: No edema. Neurological: Mental Status: He is alert. BP 120/72 Pulse 92 Temp 36.8 C (98.2 F) Ht 177.8 cm (5' 10 ) Wt 84.4 kg (186 lb) SpO2 95% BMI 26.69 kg/m ASSESSMENT/PLAN:ASSESSMENT/PLAN: 1. CIRA (obstructive sleep apnea) - ICD9: 327.23, ICD10: G47.33 (primary diagnosis) - MODAFINIL 200 MG TABLET 2. Deep vein thrombosis (DVT) of femoral vein of left lower extremity, unspecified chronicity (HCC)- ICD9: 453.41, ICD10: I82.412 Ok to stop eliquis as cost and bleeding a factor. But if he gets more leg swelling call as he is a risk for another dvt. Cont to regine w gi for tx of his AVL 3. Essential thrombocythemia (HCC) - ICD9: 238.71, ICD10: D47.3 Defer to heme 4. CLL (chronic lymphocytic leukemia) (HCC) - ICD9: 204.10, ICD10: C91.10 Cont to fu w heme Ulises Ramos DO 1. CIRA (obstructive sleep apnea) - ICD9: 327.23, ICD10: G47.33 Trial of provigil - MODAFINIL 200 MG TABLET Ulises Ramos DO documented [facility] History of Present illness Narrative* Halle Dale MD - 11/19/2022 11:28 AM EDT PROGRESS NOTE 11/19/2022 Chief Complaint: Mr. Adina David is here to follow up his hematological conditions (CLL, MPN, VTE, bleeding) Interval History: He was agitated over the weekend due to unable to have early refill of zolpidem. His main concern is unable to sleep at night. Loosing weight, down to 186 lbs. Remains on hydrea and eliquis. Additionally he has numerous complaints about his GI procedure, cardiology, breathing treatment, etc etc. Frustrated about everything. Review of Systems Constitutional: Positive for fatigue and unexpected weight change. Negative for activity change, appetite change, chills, diaphoresis and fever. HENT: Negative for mouth sores, sore throat, trouble swallowing and voice change. Eyes: Negative for photophobia and visual disturbance. Respiratory: Negative for cough, chest tightness, shortness of breath, wheezing and stridor. Cardiovascular: Negative for chest pain, palpitations and leg swelling. Gastrointestinal: Negative for abdominal distention, abdominal pain, anal bleeding, blood in stool,constipation, diarrhea, nausea, rectal pain and vomiting. Endocrine: Negative for cold intolerance and heat intolerance. Genitourinary: Negative for decreased urine volume, difficulty urinating, dysuria, enuresis, flank pain, frequency, genital sores, hematuria and urgency. Nocturia and incontinence Musculoskeletal: Negative for arthralgias, back pain, gait problem, joint swelling, myalgias, neck pain and neck stiffness. Skin: Negative for color change, pallor, rash and wound. Neurological: Positive for numbness. Negative for dizziness, tremors, seizures, syncope, facial asymmetry, speech difficulty, light-headedness and headaches. Hematological: Negative for adenopathy. Does not bruise/bleed easily. Psychiatric/Behavioral: Positive for agitation, behavioral problems, dysphoric mood and sleep disturbance. 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 glover Diverticulitis of intestine with perforation 2004 WITH FISTULA Essential hypertension FHx: colon cancer Mother GERD (gastroesophageal reflux disease) HAS GI - SLEZAK History of chickenpox History of scarlet fever History of spinal fracture 1972 L3-4 Hx of squamous cell carcinoma Hydrocele in adult Hypertriglyceridemia Hypokalemia 03/31/2019 Hypomagnesemia 03/31/2019 Leukocytosis 03/31/2019 Lipoma of back NSTEMI (non-ST elevated myocardial infarction) (HCC) Personal history of skin cancer bcc (r shoulder) 2015, scc (l lateral lower leg) 2018 Renal cancer (HCC) Stage 3 Sleep apnea CPAP ALLERGIES Allergen Reactions Doxycycline Intolerance Rash, diarrhea Penicillin Hives Penicillin V Potass* Other: See Comments Current Outpatient Medications Medication Sig Dispense Refill hydroxyurea (HYDREA) 500 mg capsule Take 2 capsules by mouth once daily 60 capsule 0 omeprazole (PRILOSEC) 40 mg capsule Take 1 capsule by mouth once daily 90 capsule 3 zolpidem (AMBIEN) 5 mg tablet Take 1 tablet by mouth at bedtime as needed for up to 90 days. 30 tablet 2 fluticasone/umeclidin/vilanter (TRELEGY ELLIPTA INHALATION) Inhale as instructed. Fluticasone Furoate 27.5 mcg/actuation nasal spray Use 2 Sprays in each nostril once daily. albuterol HFA (PROVENTIL HFA, VENTOLIN HFA) 90 mcg/actuation inhaler INHALE 1 TO 2 PUFFS BY MOUTH EVERY 6 HOURS NEEDED FOR WHEEZING 9 g 0 evolocumab (REPATHA SURECLICK) 140 mg/mL pen injector Inject 140 mg subcutaneously every 2 weeks. (Patient taking differently: Inject 140 mg subcutaneously once every month. Every 1 month) 4 Each 5 apixaban (ELIQUIS) 2.5 mg tab(s) Take 1 tablet by mouth twice daily. 60 tablet 4 magnesium oxide (MAG-OX) 400 mg (241.3 mg magnesium) tablet Take 0.5 tablets by mouth once daily. 0.5 tablet 90 tablet 3 metoprolol tartrate, short acting, (LOPRESSOR) 50 mg tablet Take 1 tablet by mouth twice daily 180 tablet 3 CPAP valACYclovir (VALTREX) 1 gram One po bid for 3 days as needed for cold sores 30 tablet 11 BABY ASPIRIN ORAL Take 81 mg by mouth once daily. calcitriol (ROCALTROL) 0.25 mcg capsule Take 0.25 mcg by mouth once daily. ergocalciferol 50,000 unit capsule (VITAMIN D2, DRISDOL) once every month. calcium carbonate (CALCIUM ANTACID) 500 mg chew One po bid prn gastritis 60 tablet 5 fluticasone-vilanterol (BREO ELLIPTA) 200-25 mcg/dose inhaler Inhale 1 Inhalation as instructed once daily. 60 Each 2 Current Facility-Administered Medications Medication Dose Route Frequency Provider Last Rate Last Admin octreotide LAR 20 mg depot (monthly) injection (SandoSTATIN LAR) 20 mg INTRAMUSCULAR q 1 MONTH Hortencia Gallardo MD Social History: in 11/2020 from breast cancer. He lives by himself. Daughter is around, 2 grandchildren. Retired. Former smoker, quit in 1990. Family History: Mother of colon cancer at age 85. No siblings, 1 daughter, w/o malignancy. I have confirmed and edited as necessary, the PFSH and ROS obtained by myself BP 144/72 Pulse 108 Temp (Src) 97.5 (Temporal) Resp 18 Ht 5' 10 (1.78m) Wt 186 lb 3.2 oz(84.5kg) SpO2 96% BMI 26.72 kg/(m^2). Physical Exam Constitutional: General: He is not in acute distress. Appearance: Normal appearance. He is not ill-appearing, toxic-appearing or diaphoretic. HENT: Head: Normocephalic and atraumatic. Mouth/Throat: Mouth: Mucous membranes are moist. Eyes: General: No scleral icterus. Conjunctiva/sclera: Conjunctivae normal. Cardiovascular: Rate and Rhythm: Normal rate and regular rhythm. Pulses: Normal pulses. Heart sounds: No murmur heard. No friction rub. No gallop. Pulmonary: Effort: Pulmonary effort is normal. No respiratory distress. Breath sounds: No stridor. No wheezing, rhonchi or rales. Abdominal: General: Abdomen is flat. Bowel sounds are normal. There is no distension. Palpations: Abdomen is soft. There is no mass. Tenderness: There is no abdominal tenderness. There is no guarding or rebound. Musculoskeletal: General: No swelling or deformity. Normal range of motion. Cervical back: Normal range of motion and neck supple. Right lower leg: No edema. Left lower leg: No edema. Lymphadenopathy: Cervical: No cervical adenopathy. Skin: General: Skin is warm and dry. Coloration: Skin is not jaundiced. Findings: No bruising or rash. Neurological: General: No focal deficit present. Mental Status: He is alert and oriented to person, place, and time. Psychiatric: Mood and Affect: Mood normal. Behavior: Behavior normal. Labs: Component Latest Ref Rng & Units 11/11/2022 WBC 3.70 - 11.00 k/uL 35.72 (H) RBC 4.20 - 6.00 m/uL 2.93 (L) HGB 13.7 - 17.5 g/dL Hematocrit 39.0 - 51.0 % 33.4 (L) MCV 80.0 - 100.0 fL 114.0 (H) MCH 26.0 - 34.0 pg 33.4 MCHC 30.5 - 36.0 g/dL 29.3 (L) RDW 11.6 - 14.4 % RDW-SD 36.1 - 45.8 fl Platelet Count 150 - 400 k/uL 686 (H) MPV 9.0 - 12.7 fL 9.6 Nucleated RBC % 0.0 - 0.2 % Nucleated RBC Absolute 0.00 - 0.01 thou/cmm Seg Neutrophil % Lymphocyte % Monocyte % Eosinophil % Basophil % Atypical Lymph % Metamyelocytes % Myelocyte % Abs. Neut(Anc) 1.78 - 5.38 thou/cmm Immat Grans Abs Calc 0.00 - 0.05 thou/cmm Abs. Lymph 0.84 - 2.85 thou/cmm Abs. [place] 0.30 - 0.82 thou/cmm Abs. Eosin 0.04 - 0.54 thou/cmm Abs. Baso 0.01 - 0.08 thou/cmm Smudge Cells RBC Morphology Anisocytosis Present Hypochromasia Polychromasia Other Immatures % Blast and Bl # thou/cmm Macro-Ovalocyte Spherocytosis CBC Interp. Pathologist Hemoglobin 13.0 - 17.0 g/dL 9.8 (L) RDW-CV 11.5 - 15.0 % 19.4 (H) NRBC /100 WBC 0.0 Absolute nRBC <0.01 k/uL <0.01 Neut% % 15.0 Abs Neut (ANC) 1.45 - 7.50 k/uL 5.36 Lymph% % 71.0 Abs Lymph 1.00 - 4.00 k/uL 25.36 (H) [place]% % 1.0 Abs [place] <0.87 k/uL 0.36 Eosin% % 3.0 Abs Eosin <0.46 k/uL 1.07 (H) Baso% % 0.0 Abs Baso <0.11 k/uL 0.00 Prolymph % % 10.0 Platelet Estimate Increased Giant Platelets Red Cell Morph Reviewed: see results of individual morphologies Ovalocytes Few Component Latest Ref Rng & Units 11/11/2022 11/18/2022 Protein, Total 6.3 - 8.0 g/dL 7.3 Albumin 3.9 - 4.9 g/dL 4.4 3.8 (L) Calcium 8.5 - 10.2 mg/dL 10.1 10.5 (H) Bilirubin, Total 0.2 - 1.3 mg/dL 0.6 Alkaline Phosphatase 38 - 113 U/L 114 (H) AST 14 - 40 U/L 18 ALT 10 - 54 U/L <5 (L) Glucose 74 - 99 mg/dL 150 (H) 123 (H) BUN 9 - 24 mg/dL 18 21 Creatinine 0.73 - 1.22 mg/dL 1.92 (H) 1.81 (H) Sodium 136 - 144 mmol/L 138 135 (L) Potassium 3.7 - 5.1 mmol/L 3.5 (L) 4.6 Chloride 97 - 105 mmol/L 102 102 CO2 22 - 30 mmol/L 20 (L) 20 (L) Anion Gap 9 - 18 mmol/L 16 13 eGFR >=60 mL/min/1.73m 37 (L) 40 (L) Component Latest Ref Rng & Units 11/11/2022 TSH 0.270 - 4.200 mIU/L 0.601 Imaging: DVT scan 10/17/2022 Positive study for chronic proximal DVT in the left lower extremity. No evidence of proximal DVT inthe right lower extremity. Nondiagnostic study for calf DVT in the left lower extremity. No evidence of calf DVT in the right lower extremity. Positive study for chronic superficial thrombophlebitis in the imaged segments of the left and right lower extremities as detailed above. CT chest w/ IV contrast on 08/13/2022 1. No consolidation or pleural effusion. Mild peribronchial thickening. 2. Few pulmonary nodules are new since 2020, possibly inflammatory however given the history of malignancy consider CT abdomen and pelvis with contrast for further evaluation and possible follow-up CT of the chest in 3 months to assess for stability. 3. Several lymph nodes in the chest are mildly decreased in size compared to 2020. Partially imagedlymph nodes in the upper abdomen as well. US kidney/bladder on 02/13/2022 Unremarkable left kidney. Right nephrectomy. CT A/P w/ IV contrast on 01/19/2022 ([facility]) Right inguinal hernia containing loops of bowel. Early small bowel obstruction is suspected, with source of obstruction at the right inguinal hernia. Follow up is recommended. Numerous borderline to slightly enlarged mesenteric lymph nodes with the right mid to lower abdomen. Follow up is recommended. Mild hydronephrosis of the left kidney with moderate to large amount of perinephritic fat stranding. There is hydroureter on the left with question caliber change of the ureter near the level of the iliac vessels versus obstruction at the level of the UVJ. No obvious renal stone demonstrated. Follow up urologic consultation suggested. CT C/A/P w/o contrast 01/23/2021 1. Enlarged lymph node paraesophageal region of the posterior mediastinum stable since prior exam. Of unclear etiology. Metastatic disease not excluded. 2. Increase in size of ovoid nodule along left hemidiaphragm. Metastatic disease is a consideration. This nodule would be difficult to percutaneously biopsy given its size and location. Follow-up is recommended. 3. New ovoid density posteriorly at the left lung base. It may represent new very small pleural effusion. Recommend attention to this on follow-up scans. 4. Extensive lymph node enlargement throughout the periportal region and throughout the mesenteric fat in the right abdomen. Not significantly changed since prior CT scan 07/19/2020. Stable pelvic and inguinal lymph node prominence. 5. Status post open reduction internal fixation proximal left femur fracture. Fracture line still visible. Pathology: none Assessment and Plan: Mr. Adina David is a pleasant 67 yo M with multiple comorbidity including clear cell RCC, CLL, MPN, DVT, CAD, CKD III and chronic anemia, who presents to follow up. 1. Chronic macrocytic anemia - Hb baseline 8-10. Causes of chronic anemia is multifactorial, including CKDIII, GIB, iron deficiency, CLL, MPN on hydrea - drop in H/H since 06/2022 when he resumed Eliquis 2.5 mg BID for new DVT. Required pRBC transfusion on 08/16, 08/28, and 10/10. He underwent endoscope at [facility] on 10/09/2022, found bleeders s/p endoscopic hemastatic treatment. Monitor blood counts monthly, transfusion support as needed. Avoid iron infusion due to MPN 2. ccRCC - diagnosed in 05/2017 - s/p right radical nephrectomy, clear cell RCC, WHO/ISUP grade 2, with renal vein invasion and renal vein thrombosis, 9 cm in size, pT3a pNx - no adjuvant treatment - CT A/P from 01/19/2022 and US kidney/bladder from 02/13/2022 were reviewed showing BARNEY. - recent CT chest from 08/13/2022 was reviewed showing few pulmonary nodules <1 cm in size, nonspecific, favor inflammatory or reactive process. Arrange follow up CT chest in 6 months 3. CLL - diagnosed in 04/2017, peripheral blood flow showed a CD5-positive B-cell lymphoproliferative disorder. The immunophenotype is consistent with CLL/SLL - CT C/A/P showed mediastinal and abdominal adenopathy, stable compared scan in 07/2020, likely fromCLL/SLL process. - Su stage I. No indication to initiate treatment 4. Essential thrombocythemia - platelet count over 1000K, without clear secondary causes - CALR no variant detected; JAK2 V617F not detected; BCR-ABL not detected. MPL-a sequence change ofc.1502T>C in exon 10 was detected at approximately 18% allelic proportion; a sequence change of c. 1514G>A ([id number]) in exon 10 was detected at approximately 16% allelic proportion - he was started on hydrea since 04/2020, 500 mg BID - labs from 10/16/2022 was reviewed WBC 37.76, Hb 10.2, Hct 34.7, MCV 106.8, platelet 615K, ANC 6.42,lymphocyte 28.70. Continue hydrea at the same dose, along with baby ASA and Eliquis 2.5 mg BID 5. DVT - 03/14/2021, DVT of indeterminate age in the common femoral vein throughout. Possibly provoked, as he had left femur subtrochanteric fracture s/p internal fixation with persistent swelling postop - on Eliquis 5 mg BID since 03/2021. Dose reduce to 2.5 mg BID in 05/2021 due to renal dysfunction and major GIB. D/C Eliquis in 09/2021. 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 He's back on Eliquis 2.5 mg BID since 06/3022, compliant but with new GIB s/p endoscopic hemostatic treatment. Repeat b/l LE DVT scan on 10/17/2022 showed chronic proximal DVT in LLE. He should remain on Eliquis 2.5 mg BID as long as he tolerates. 6. BPH - LUTS from BPH. - PSA 8.67. - prior prostate biopsy showed no evidence of cancer. - Being followed and managed by urology 7. GIB - admitted to [facility] in 04/2021 with Hb 4.8, transfused 7 units pRBC He underwent EGD and colonoscopy were normal. Capsule endoscopy reviewed bleeding lesions. Push enteroscopy done April 2021 which showed bleeding AVMs - Currently no active bleeding. He follows GI. Octreotide was denied by insurance. If bleed again will need double balloon scope. - dropping H/H since 06/2022 when he resumed Eliquis 2.5 mg BID. He denied overt bleeding but required pRBC transfusion on 08/16, 08/28, 10/10. He underwent endoscope at [facility] on 10/09/2022, found bleeders s/p endoscopic hemostatic treatment. Count check monthly, transfusion as needed. - Avoid further iron supplement due to his MPN. Mild iron deficiency is expected and allowed. 8. Insomnia and behavior problem - I declined his request to double the dose of ambien, placed referral to sleep medicine, also encourage him to discuss insomnia management with PCP - depressed, agitated, frustrated about his health issues. Encourage him to see psychology - I offered to arrange second opinion. He asked to see Leslie Moon ALCIDES who used to care for his . RTC in 3 months. Some elements copied from my notes 10/16/2022, including the physical exam completed in entirety today, have been updated where appropriate. All reflect current medical decision making from today, 11/19/2022 Medical Decision Making: Problems: High: Illness/injury w/ threat to life/body function Data: Unique test result(s) reviewed: 3+ Unique test(s) ordered: 3+ Risk: Moderate: Moderate risk from testing/treatment and Drug management Medical Decision Making Level: 4 - Moderate documented in this [facility] Miscellaneous Notes* Telephone Encounter - Yuko Raymond RN - 11/18/2022 11:36 AM EDT Pt calling to see if orders were in for covid testing. Pt has been seen by multiple providers for current symptoms. No new or worse symptoms, but patient is not getting better per his report. Pt says he's been having these symptoms for four years. Pt advised to go to the ER with any new or worsening symptoms. Orders for covid testing previously placed. documented [facility] Miscellaneous Notes* Telephone Encounter - Trya-Bertha Andrae MD - 11/16/2022 9:51 AM EDT Pt called this am asking to have his Zolpidem released early from pharmacy. Explained to pt that there is a call from pharmacy to Dr. Dale that she would not release the rx early on 11/15/22. Reviewed with pt policy that controlled substances will not be refilled or handled on the weekend but that Dr. Dale already handled this on Friday with the pharmacist. Pt then became belligerent with me and started yelling at me. He asked if there was an order for a COVID test in his chart from Dr. Ramos, to which I explained to him that I was not sure as I am not in his office but I don't see anything in his chart ordered. Pt stated that Dr. Dale can GFY . Pt then proceeded to yell at me and hang up. documented in this encounterSelect [facility]08-04-2023 Miscellaneous Notes* Telephone Encounter - Halle Dale MD - 11/15/2022 12:06 PM EDT I've refused multiple times to prescribe higher dose of zolpidem. Plus I've asked him to go to PCP for such request. Signs of violent behavior that our administration staff need to know. Why do we let patients walk in without appointment? * Telephone Encounter - Derek Horne MA - 11/15/2022 9:52 AM EDT We received a call from [facility] in [place], pt is requesting an early refill on Zolpidem thepharmacist calculated that the pt must be taking 2 tabs at night instead of one which the pt has admitted to. He states the pt first made a gun threat [pharmacist didn't go into detail but doesn't sound like he pulled one out] and then backtracked and said that he would contact our office (pt normally walks in) Derek Horne MA documented in this encounterSelect Medical [facility]ty [facility]08-04-2023 Miscellaneous Notes* Telephone Encounter - Peter Land DO - 11/15/2022 9:36 AM EDT Will have to address w pcp * Telephone Encounter - Maureen Avelar RN - 11/15/2022 9:16 AM EDT Patient has ambien 5mg prescribed. States the 5 mg doesn't do anything for him and has been taking 10mg. Dr. Dale prescribed the 5mg and recommended he see a sleep specialist but his appointment was cancelled. He is scheduled for 12/11 now. Patient requesting a prescription to cover him until his appointment. documented in this encounterSelect [facility]08-01-2023 Miscellaneous Notes* Telephone Encounter - Ary Araujo Ma - 11/12/2022 2:05 PM EDT Spoke to patient. He verified faxing lab results to [facility], Michelle. Richard placed Covid test order for patient. Informed patient he can schedule an appointment through [facility] to have his Covid test done.He might wait till his appointment with Richard. Faxed lab results to [phone]. * Telephone Encounter - Guerline Alex - 11/12/2022 11:22 AM EDT Patient is requesting Dr. Ramos review his recent lab results. Patient is asking if he is cured? Patient states that his hemoglobin increased. Patient states due to the fatigue he'd like a COVID test ordered. Patient does have an upcoming appointment on 11/[address] Ramos. Patient is also wanting his lab results faxed to MICHELLE at [facility], fax number: [phone] attn: Dr. Milner documented in this encounterSelect Medical [facility]07-27-2023 Miscellaneous Notes* Telephone Encounter - Thi Pavon CMA - 11/07/2022 1:26 PM EDT Items addressed in this encounter: Telephone Encounter Thi Pavon CMA November 07, 2022 1:26 PM * Telephone Encounter - Justyna Chanel - 11/07/2022 1:07 PM EDT Called pt and scheduled him for a medicare wellness visit, and he asked that I send PCP a message to let him know that he did recent labs ordered by Dr. Dale, and will get another blood draw again on Friday to recheck his hemoglobin because he keeps losing blood. Pt wants to give PCP a heads up and to review his results and also his visit yesterday w/Dr. Guidry. Justyna [facility] Patient Outreach Team documented in this encounterSelect Medical [facility]07-26-2023 Miscellaneous Notes* Telephone Encounter - Fidencio Mon RN - 11/06/2022 11:49 AM EDT Pt had a visit with provider today. Fidencio Mon RN documented in this encounterSelect Medical [facility]07-13-2023 Miscellaneous Notes* Telephone Encounter - Derek Horne MA - 10/24/2022 10:44 AM EDT Pt informed of results provided by Leslie Gomez, and of the lab orders. Derek Horne MA * Telephone Encounter - Derek Horne MA - 10/23/2022 2:08 PM EDT Pt came by for his US results, he also wanted to know when to have his blood checked again as he doesn't feel well Derek Horne MA documented in this encounterSelect Medical Specialty [facility]07-13-2023 History of Present illness Narrative* Wilton Palma RN - 10/24/2022 10:35 AM EDT CDM Telephonic Outreach Provider Action/FYI CDM: CKD Left a message, Instructed to call PCP with any symptom or condition changes. Contacted for: Routine Telephonic Outreach Contact made with patient: No, left message. Wilton Palma RN October 24, 2022 10:36 AM documented in this encounterSelect Medical [facility]07-12-2023 History of Present illness Narrative* Wilton Palma RN - 10/23/2022 1:13 PM EDT CDM Telephonic Outreach Provider Action/FYI CDM: CKD Left a message, Instructed to call PCP with any symptom or condition changes Contacted for: Routine Telephonic Outreach Contact made with patient: No, left message. Wilton Plama RN October 23, 2022 1:34 PM * Wilton Palma RN - 10/22/2022 5:07 PM EDT CDM Telephonic Outreach Provider Action/FYI CDM: CKD Called home number, unable to leave a message to verify symptom status and needs. Contacted for: Routine Telephonic Outreach Contact made with patient: No, unable to leave message. Will reattempt call Wilton Palma RN October 22, 2022 5:07 PM documented in this encounterSelect Medical [facility]07-07-2023 Miscellaneous Notes* Telephone Encounter - Halle Dale MD - 10/18/2022 4:54 PM EDT I would not increase the dose of ambien. Encourage him to see PCP or sleep specialist for insomnia treatment. Ambien 10 mg is above recommended dose, may cause adverse events. * Telephone Encounter - Derek Horne MA - 10/18/2022 10:17 AM EDT Pt called as his pharmacy still hasn't received the increased zolpidem script. Pt states it is supposed to be 10mg and to [facility] in [place]. Derek Horne MA documented in this encounterSelect Medical [facility]07-06-2023 History of Present illness Narrative* Ulises Ramos, - 10/17/2022 4:08 PM EDT Here for fu. Just had us and awaiting results. 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 glover Diverticulitis of intestine with perforation 2004 WITH FISTULA Essential hypertension FHx: colon cancer Mother GERD (gastroesophageal reflux disease) HAS GI - SLEZAK History of chickenpox History of scarlet fever History of spinal fracture 1973 L3-4 Hx of squamous cell carcinoma Hydrocele in adult Hypertriglyceridemia Hypokalemia 03/31/2019 Hypomagnesemia 03/31/2019 Leukocytosis 03/31/2019 Lipoma of back NSTEMI (non-ST elevated myocardial infarction) (HCC) Personal history of skin cancer bcc (r shoulder) 2015, scc (l lateral lower leg) 2018 Renal cancer (HCC) Stage 3 Sleep apnea CPAP PAST SURGICAL HISTORY Procedure Laterality Date BOWEL RESECTION HX 2004 Partial COLONOSCOPY 01/07/2019 hemorrhoids and diverticulosis CYSTOSCOPY 2004 2005 EGD 11/2019 x3 EGD 12/31/2018 Rhodes's, Duodenal erosions. Dr. Enio Degroot. HEMORRHOID SURGERY HX 1999 LAP NEPHRECTOMY Right 2018 DR. 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 6 CUPS/DAY LIVES AT HOME WITH NO PETS NOREEN DAUGHTER = NO GRANDKIDS YET RIDE HORSES Allergies: ALLERGIES Allergen Reactions Doxycycline Intolerance Rash, diarrhea Penicillin Hives Penicillin V Potass* Other: See Comments Medications: omeprazole (PRILOSEC) 40 mg capsule^Take 1 capsule by mouth once daily^Disp: 90 capsule^Rfl: 3 zolpidem (AMBIEN) 5 mg tablet^Take 1 tablet by mouth at bedtime as needed for up to 90 days.^Disp: 30 tablet^Rfl: 2 fluticasone/umeclidin/vilanter (TRELEGY ELLIPTA INHALATION)^Inhale as instructed.^Disp: ^Rfl: Fluticasone Furoate 27.5 mcg/actuation nasal spray^Use 2 Sprays in each nostril once daily.^Disp: ^Rfl: hydroxyurea (HYDREA) 500 mg capsule^Take 2 capsules by mouth once daily^Disp: 60 capsule^Rfl: 0 evolocumab (REPATHA SURECLICK) 140 mg/mL pen injector^Inject 140 mg subcutaneously every 2 weeks.^Disp: 4 Each^Rfl: 5 (Patient taking differently: Inject 140 mg subcutaneously once every month. Every1 month) apixaban (ELIQUIS) 2.5 mg tab(s)^Take 1 tablet by mouth twice daily.^Disp: 60 tablet^Rfl: 4 magnesium oxide (MAG-OX) 400 mg (241.3 mg magnesium) tablet^Take 0.5 tablets by mouth once daily. 0.5 tablet^Disp: 90 tablet^Rfl: 3 metoprolol tartrate, short acting, (LOPRESSOR) 50 mg tablet^Take 1 tablet by mouth twice daily^Disp: 180 tablet^Rfl: 3 valACYclovir (VALTREX) 1 gram^One po bid for 3 days as needed for cold sores^Disp: 30 tablet^Rfl: 11 BABY ASPIRIN ORAL^Take 81 mg by mouth once daily.^Disp: ^Rfl: calcitriol (ROCALTROL) 0.25 mcg capsule^Take 0.25 mcg by mouth once daily.^Disp: ^Rfl: fluticasone-vilanterol (BREO ELLIPTA) 200-25 mcg/dose inhaler^Inhale 1 Inhalation as instructed once daily.^Disp: 60 Each^Rfl: 2 albuterol HFA (PROVENTIL HFA, VENTOLIN HFA) 90 mcg/actuation inhaler^INHALE 1 TO 2 PUFFS BY MOUTH EVERY 6 HOURS NEEDED FOR WHEEZING^Disp: 9 g^Rfl: 0 CPAP^^Disp: ^Rfl: ergocalciferol 50,000 unit capsule (VITAMIN D2, DRISDOL)^once every month. ^Disp: ^Rfl: calcium carbonate (CALCIUM ANTACID) 500 mg chew^One po bid prn gastritis^Disp: 60 tablet^Rfl: 5 Problem List: ACTIVE PROBLEM LIST Deng (Acute Kidney Injury) ([facility]) - 01/07/2019 (D priority) Iron Deficiency Anemia Due to Chronic Blood Loss - 02/19/2022 Vitamin D Deficiency - 07/17/2021 Obesity, Class I, Bmi 30-34.9 - 05/28/2021 Acute Blood Loss Anemia - 05/16/2021 Covid-19 Virus Infection - 05/16/2021 Severe Protein-Calorie Malnutrition ([facility]) - 05/09/2021 Severe Anemia - 05/02/2021 Cira (Obstructive Sleep Apnea) - 05/01/2021 Deep Vein Thrombosis (Dvt) of Femoral Vein of Left Lower Extremity ([facility]) - 03/14/2021 Leg Swelling - 03/14/2021 Leukocytosis - 03/31/2019 Essential Thrombocythemia ([facility]) - 03/31/2019 Ckd (Chronic Kidney Disease) Stage 3, Gfr 30-59 Ml/Min ([facility]) - 03/31/2019 Hypertriglyceridemia 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 S/P Drug Eluting Coronary Stent Placement - 11/25/2018 Stage 2 Chronic Kidney Disease - 11/10/2018 Nstemi (Non-St Elevated Myocardial Infarction) ([facility]) - 10/24/2018 Bph (Benign Prostatic Hyperplasia) - 10/05/2018 History of Right Nephrectomy - 10/05/2018 Nocturia - 03/19/2018 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 Cll (Chronic Lymphocytic Leukemia) ([facility]) - 06/13/2017 Iron Deficiency Anemia - 06/13/2017 Renal Cancer, Right ([facility]) - 04/29/2017 Essential Hypertension Multiple Lipomas Gerd (Gastroesophageal Reflux Disease) Comment: HAS GI - TRACE H/O Resection of Large Bowel - 04/14/2004 Comment: DR. SUAREZ Review of Systems Constitutional: Positive for fatigue. Respiratory: Positive for cough. Cardiovascular: Negative. Physical Exam Cardiovascular: Rate and Rhythm: Regular rhythm. Heart sounds: Normal heart sounds. Pulmonary: Breath sounds: Rhonchi present. Musculoskeletal: Right lower leg: No edema. Left lower leg: No edema. Neurological: Mental Status: He is alert. BP 140/90 (BP Site: Right Arm, BP Position: Sitting, BP Cuff Size: Regular Adult) Pulse 85 Temp36.7 C (98.1 F) (Temporal) Resp 16 Wt 89.3 kg (196 lb 12.8 oz) SpO2 98% BMI 28.24 kg/m ASSESSMENT/PLAN: 1. Deep vein thrombosis (DVT) of femoral vein of left lower extremity, unspecified chronicity (HCC)- ICD9: 453.41, ICD10: I82.412 Await testing. DO Ulises Larson DO documented in this encounterSelect Medical [facility]ty [facility]07-06-2023 Miscellaneous Notes* Telephone Encounter - Emilee Lake Ma - 10/17/2022 2:19 PM EDT Pt contacted * Telephone Encounter - Ulises Ramos DO - 10/14/2022 11:01 AM EDT I am deferring to the doc who did the scope on when they want to see him again. They cauterized a few areas that were bleeding. With him the follow ups may be as needed if he bleeds again or on a more routine schedule based on what they think he needs * Telephone Encounter - Jenn Alcala Ma - 10/10/2022 10:35 AM EDT Normal? Repeat in 5 years? * Telephone Encounter - Ary Fountain - 10/10/2022 9:36 AM EDT Pt asking pcp for a callback to discuss results of colonoscopy done 10/09/22. Pt can be reached at [phone]. Please review. documented in this encounterSelect Medical [facility]ty [facility]07-06-2023 History of Present illness Narrative* RT Anthony(R) - 10/17/2022 2:00 PM EDT Radiology Service Progress Note PATIENT NAME: Adina David DATE OF SERVICE: October 17, 2022 TIME: 2:46 PM PATIENT IDENTITY VERIFICATION COMPLETED USING TWO (2) IDENTIFIERS: Name and Date of confirmedby patient verbally. FALL SCREENING: Has the patient had 2 falls in the last year or 1 fall with injury or currently using an Ambulatory Assistive Device (Walker, Cane, Wheelchair, Crutches, etc.)? No PATIENT GENDER DATA: Male PATIENT RELEVANT IMPLANT DATA REVIEWED: Not Applicable RADIOLOGY DEPARTMENT: Ultrasound PERIPHERAL IV DATA: Not applicable SIGNED BY: RT Anthony(R) October 17, 2022 2:46 PM documented in this encounterSelect Medical [facility]07-06-2023 History of Present illness Narrative* Halle Dale MD - 10/17/2022 10:48 AM EDT PROGRESS NOTE 10/17/2022 Chief Complaint: Mr. Adina David is here to follow up his hematological conditions (CLL, MPN, VTE, bleeding) Interval History: He remains on hydrea 1000 mg daily. Remains on Eliquis 2.5 mg BID. He underwent endoscope at [facility] main last week, found bleeding source s/p endoscopic hemostatic treatment. He received 1 unit pRBC transfusion on 10/10. Reports fatigue and insomnia. Left leg residual swelling. Denied melena, hematochezia, or other active bleeding. Review of Systems Constitutional: Positive for fatigue. Negative for activity change, appetite change, chills, diaphoresis, fever and unexpected weight change. HENT: Negative for mouth sores, sore throat, trouble swallowing and voice change. Eyes: Negative for photophobia and visual disturbance. Respiratory: Negative for cough, chest tightness, shortness of breath, wheezing and stridor. Cardiovascular: Negative for chest pain, palpitations and leg swelling. Gastrointestinal: Negative for abdominal distention, abdominal pain, anal bleeding, blood in stool,constipation, diarrhea, nausea, rectal pain and vomiting. Endocrine: Negative for cold intolerance and heat intolerance. Genitourinary: Negative for decreased urine volume, difficulty urinating, dysuria, enuresis, flank pain, frequency, genital sores, hematuria and urgency. Nocturia and incontinence Musculoskeletal: Negative for arthralgias, back pain, gait problem, joint swelling, myalgias, neck pain and neck stiffness. Skin: Negative for color change, pallor, rash and wound. Neurological: Positive for numbness. Negative for dizziness, tremors, seizures, syncope, facial asymmetry, speech difficulty, light-headedness and headaches. Hematological: Negative for adenopathy. Does not bruise/bleed easily. Psychiatric/Behavioral: Negative for sleep disturbance. 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 glover Diverticulitis of intestine with perforation 2004 WITH FISTULA Essential hypertension FHx: colon cancer Mother GERD (gastroesophageal reflux disease) HAS GI - SLEZAK History of chickenpox History of scarlet fever History of spinal fracture 1973 L3-4 Hx of squamous cell carcinoma Hydrocele in adult Hypertriglyceridemia Hypokalemia 03/31/2019 Hypomagnesemia 03/31/2019 Leukocytosis 03/31/2019 Lipoma of back NSTEMI (non-ST elevated myocardial infarction) (HCC) Personal history of skin cancer bcc (r shoulder) 2015, scc (l lateral lower leg) 2018 Renal cancer (HCC) Stage 3 Sleep apnea CPAP ALLERGIES Allergen Reactions Doxycycline Intolerance Rash, diarrhea Penicillin Hives Penicillin V Potass* Other: See Comments Current Outpatient Medications Medication Sig Dispense Refill fluticasone/umeclidin/vilanter (TRELEGY ELLIPTA INHALATION) Inhale as instructed. Fluticasone Furoate 27.5 mcg/actuation nasal spray Use 2 Sprays in each nostril once daily. hydroxyurea (HYDREA) 500 mg capsule Take 2 capsules by mouth once daily 60 capsule 0 fluticasone-vilanterol (BREO ELLIPTA) 200-25 mcg/dose inhaler Inhale 1 Inhalation as instructed once daily. 60 Each 2 zolpidem (AMBIEN) 5 mg tablet Take 1 tablet by mouth at bedtime as needed for up to 90 days. 30 tablet 2 albuterol HFA (PROVENTIL HFA, VENTOLIN HFA) 90 mcg/actuation inhaler INHALE 1 TO 2 PUFFS BY MOUTH EVERY 6 HOURS NEEDED FOR WHEEZING 9 g 0 evolocumab (REPATHA SURECLICK) 140 mg/mL pen injector Inject 140 mg subcutaneously every 2 weeks. (Patient taking differently: Inject 140 mg subcutaneously once every month. Every 1 month) 4 Each 5 apixaban (ELIQUIS) 2.5 mg tab(s) Take 1 tablet by mouth twice daily. 60 tablet 4 magnesium oxide (MAG-OX) 400 mg (241.3 mg magnesium) tablet Take 0.5 tablets by mouth once daily. 0.5 tablet 90 tablet 3 metoprolol tartrate, short acting, (LOPRESSOR) 50 mg tablet Take 1 tablet by mouth twice daily 180 tablet 3 CPAP valACYclovir (VALTREX) 1 gram One po bid for 3 days as needed for cold sores 30 tablet 11 BABY ASPIRIN ORAL Take 81 mg by mouth once daily. calcitriol (ROCALTROL) 0.25 mcg capsule Take 0.25 mcg by mouth once daily. ergocalciferol 50,000 unit capsule (VITAMIN D2, DRISDOL) once every month. calcium carbonate (CALCIUM ANTACID) 500 mg chew One po bid prn gastritis 60 tablet 5 omeprazole (PRILOSEC) 40 mg capsule Take 1 capsule by mouth once daily 90 capsule 3 Current Facility-Administered Medications Medication Dose Route Frequency Provider Last Rate Last Admin octreotide LAR 20 mg depot (monthly) injection (SandoSTATIN LAR) 20 mg INTRAMUSCULAR q 1 MONTH Hortencia Gallardo MD Social History: in 11/2020 from breast cancer. He lives by himself. Daughter is around, 2 grandchildren. Retired. Former smoker, quit in 1990. Family History: Mother of colon cancer at age 85. No siblings, 1 daughter, w/o malignancy. I have confirmed and edited as necessary, the PFSH and ROS obtained by myself BP 145/71 Pulse 120 Temp (Src) 98.3 (Temporal) Resp 16 Ht 5' 10 (1.78m) Wt 196 lb (88.9kg) SpO2 99% BMI 28.12 kg/(m^2). Physical Exam Constitutional: General: He is not in acute distress. Appearance: Normal appearance. He is not ill-appearing, toxic-appearing or diaphoretic. HENT: Head: Normocephalic and atraumatic. Mouth/Throat: Mouth: Mucous membranes are moist. Eyes: General: No scleral icterus. Conjunctiva/sclera: Conjunctivae normal. Cardiovascular: Rate and Rhythm: Normal rate and regular rhythm. Pulses: Normal pulses. Heart sounds: No murmur heard. No friction rub. No gallop. Pulmonary: Effort: Pulmonary effort is normal. No respiratory distress. Breath sounds: No stridor. No wheezing, rhonchi or rales. Abdominal: General: Abdomen is flat. Bowel sounds are normal. There is no distension. Palpations: Abdomen is soft. There is no mass. Tenderness: There is no abdominal tenderness. There is no guarding or rebound. Musculoskeletal: General: No swelling or deformity. Normal range of motion. Cervical back: Normal range of motion and neck supple. Right lower leg: No edema. Left lower leg: No edema. Lymphadenopathy: Cervical: No cervical adenopathy. Skin: General: Skin is warm and dry. Coloration: Skin is not jaundiced. Findings: No bruising or rash. Neurological: General: No focal deficit present. Mental Status: He is alert and oriented to person, place, and time. Psychiatric: Mood and Affect: Mood normal. Behavior: Behavior normal. Labs: Component Latest Ref Rng & Units 10/16/2022 WBC 3.70 - 11.00 k/uL 37.76 (H) RBC 4.20 - 6.00 m/uL 3.25 (L) HGB 13.7 - 17.5 g/dL Hematocrit 39.0 - 51.0 % 34.7 (L) MCV 80.0 - 100.0 fL 106.8 (H) MCH 26.0 - 34.0 pg 31.4 MCHC 30.5 - 36.0 g/dL 29.4 (L) RDW 11.6 - 14.4 % RDW-SD 36.1 - 45.8 fl Platelet Count 150 - 400 k/uL 615 (H) MPV 9.0 - 12.7 fL 9.7 Nucleated RBC % 0.0 - 0.2 % Nucleated RBC Absolute 0.00 - 0.01 thou/cmm Seg Neutrophil % Lymphocyte % Monocyte % Eosinophil % Basophil % Atypical Lymph % Metamyelocytes % Myelocyte % Abs. Neut(Anc) 1.78 - 5.38 thou/cmm Immat Grans Abs Calc 0.00 - 0.05 thou/cmm Abs. Lymph 0.84 - 2.85 thou/cmm Abs. [place] 0.30 - 0.82 thou/cmm Abs. Eosin 0.04 - 0.54 thou/cmm Abs. Baso 0.01 - 0.08 thou/cmm Smudge Cells RBC Morphology Anisocytosis Present Hypochromasia Polychromasia Other Immatures % Blast and Bl # thou/cmm Macro-Ovalocyte Spherocytosis CBC Interp. Pathologist Hemoglobin 13.0 - 17.0 g/dL 10.2 (L) RDW-CV 11.5 - 15.0 % 19.9 (H) NRBC /100 WBC 0.0 Absolute nRBC <0.01 k/uL <0.01 Neut% % 17.0 Abs Neut (ANC) 1.45 - 7.50 k/uL 6.42 Lymph% % 76.0 Abs Lymph 1.00 - 4.00 k/uL 28.70 (H) [place]% % 1.0 Abs [place] <0.87 k/uL 0.38 Eosin% % 0.0 Abs Eosin <0.46 k/uL 0.00 Baso% % 0.0 Abs Baso <0.11 k/uL 0.00 Prolymph % % 6.0 Platelet Estimate Increased Giant Platelets Red Cell Morph Reviewed: see results of individual morphologies Ovalocytes Few RBC Fragments None Seen Tear Drop DTYPE Manual Component Latest Ref Rng & Units 10/07/2022 Protein, Total 6.3 - 8.0 g/dL 6.3 Albumin 3.9 - 4.9 g/dL 4.5 Calcium 8.5 - 10.2 mg/dL 7.2 (L) Bilirubin, Total 0.2 - 1.3 mg/dL 0.3 Alkaline Phosphatase 38 - 113 U/L 77 AST 14 - 40 U/L 19 ALT 10 - 54 U/L 8 (L) Glucose 74 - 99 mg/dL 102 (H) BUN 9 - 24 mg/dL 19 Creatinine 0.73 - 1.22 mg/dL 1.80 (H) Sodium 136 - 144 mmol/L 141 Potassium 3.7 - 5.1 mmol/L 4.1 Chloride 97 - 105 mmol/L 106 (H) CO2 22 - 30 mmol/L 21 (L) Anion Gap 9 - 18 mmol/L 14 eGFR >=60 mL/min/1.73m 40 (L) Imaging: CT chest w/ IV contrast on 08/13/2022 1. No consolidation or pleural effusion. Mild peribronchial thickening. 2. Few pulmonary nodules are new since 2020, possibly inflammatory however given the history of malignancy consider CT abdomen and pelvis with contrast for further evaluation and possible follow-up CT of the chest in 3 months to assess for stability. 3. Several lymph nodes in the chest are mildly decreased in size compared to 202. Partially imagedlymph nodes in the upper abdomen as well. RLE venous duplex on 07/18/2022 Negative study for proximal DVT in the right lower extremity. Negative study for calf DVT in the right lower extremity. Positive study for superficial thrombophlebitis in the imaged segments of the right lower extremity. Superficial thrombophlebitis involving the right lesser saphenous vein. There is peripheral echogenic material in the left common femoral vein which is not fully compressible the appearance is suggestive of chronic DVT. LLE venous duplex on 07/04/2022 Occlusive deep venous thrombosis of the popliteal vein that is new since the prior exam. Chronic nonocclusive deep venous thrombosis is again noted in the left femoral vein. No other evidence of proximal DVT in the left lower extremity. Negative study for calf DVT in the left lower extremity. Negative study for superficial thrombophlebitis in the imaged segments of the left lower extremity. US kidney/bladder on 02/13/2022 Unremarkable left kidney. Right nephrectomy. CT A/P w/ IV contrast on 01/19/2022 ([facility]) Right inguinal hernia containing loops of bowel. Early small bowel obstruction is suspected, with source of obstruction at the right inguinal hernia. Follow up is recommended. Numerous borderline to slightly enlarged mesenteric lymph nodes with the right mid to lower abdomen. Follow up is recommended. Mild hydronephrosis of the left kidney with moderate to large amount of perinephritic fat stranding. There is hydroureter on the left with question caliber change of the ureter near the level of the iliac vessels versus obstruction at the level of the UVJ. No obvious renal stone demonstrated. Follow up urologic consultation suggested. CT C/A/P w/o contrast 01/23/2021 1. Enlarged lymph node paraesophageal region of the posterior mediastinum stable since prior exam. Of unclear etiology. Metastatic disease not excluded. 2. Increase in size of ovoid nodule along left hemidiaphragm. Metastatic disease is a consideration. This nodule would be difficult to percutaneously biopsy given its size and location. Follow-up is recommended. 3. New ovoid density posteriorly at the left lung base. It may represent new very small pleural effusion. Recommend attention to this on follow-up scans. 4. Extensive lymph node enlargement throughout the periportal region and throughout the mesenteric fat in the right abdomen. Not significantly changed since prior CT scan 07/19/2020. Stable pelvic and inguinal lymph node prominence. 5. Status post open reduction internal fixation proximal left femur fracture. Fracture line still visible. RLE venous duplex on 10/18/2021 Interval improvement in left lower extremity DVT, now with long segment eccentric non-occlusive thrombus involving femoral and popliteal veins. Negative study for calf DVT in the left lower extremity. Negative study for superficial thrombophlebitis in the imaged segments of the left lower extremity. Pathology: none Assessment and Plan: Mr. Adina David is a pleasant 66 yo M with multiple comorbidity including clear cell RCC, CLL, MPN, DVT, CAD, CKD III and chronic anemia, who presents to follow up. 1. Chronic macrocytic anemia - Hb baseline 8-10. Causes of chronic anemia is multifactorial, including CKDIII, GIB, iron deficiency, CLL, MPN on hydrea - drop in H/H since 06/2022 when he resumed Eliquis 2.5 mg BID for new DVT. Required pRBC transfusion on 08/16, 08/28, and 10/10. He underwent endoscope at [facility] on 10/09/2022, found bleeders s/p endoscopic hemastatic treatment. Monitor blood counts monthly, transfusion support as needed. Avoid iron infusion due to MPN 2. ccRCC - diagnosed in 05/2017 - s/p right radical nephrectomy, clear cell RCC, WHO/ISUP grade 2, with renal vein invasion and renal vein thrombosis, 9 cm in size, pT3a pNx - no adjuvant treatment - CT A/P from 01/19/2022 and US kidney/bladder from 02/13/2022 were reviewed showing BARNEY. - recent CT chest from 08/13/2022 was reviewed showing few pulmonary nodules <1 cm in size, nonspecific, favor inflammatory or reactive process. Arrange follow up CT chest in 3-6 months 3. CLL - diagnosed in 04/2017, peripheral blood flow showed a CD5-positive B-cell lymphoproliferative disorder. The immunophenotype is consistent with CLL/SLL - CT C/A/P showed mediastinal and abdominal adenopathy, stable compared scan in 07/2020, likely fromCLL/SLL process. - Su stage I. No indication to initiate treatment 4. Essential thrombocythemia - platelet count over 1000K, without clear secondary causes - CALR no variant detected; JAK2 V617F not detected; BCR-ABL not detected. MPL-a sequence change ofc.1502T>C in exon 10 was detected at approximately 18% allelic proportion; a sequence change of c. 1514G>A (p.[id number]) in exon 10 was detected at approximately 16% allelic proportion - he was started on hydrea since 04/2020, 500 mg BID - labs from 10/16/2022 was reviewed WBC 37.76, Hb 10.2, Hct 34.7, MCV 106.8, platelet 615K, ANC 6.42,lymphocyte 28.70. Continue hydrea at the same dose, along with baby ASA and Eliquis 2.5 mg BID 5. DVT - 03/14/2021, DVT of indeterminate age in the common femoral vein throughout. Possibly provoked, as he had left femur subtrochanteric fracture s/p internal fixation with persistent swelling postop - on Eliquis 5 mg BID since 03/2021. Dose reduce to 2.5 mg BID in 05/2021 due to renal dysfunction and major GIB. D/C Eliquis in 09/2021. 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 He's back on Eliquis 2.5 mg BID since 06/3022, compliant but with new GIB s/p endoscopic hemostatic treatment. Repeat b/l LE DVT scan, if clear, consider d/c Elqiuis. 6. BPH - LUTS from BPH. - PSA 8.67. - prior prostate biopsy showed no evidence of cancer. - Being followed and managed by urology 7. GIB - admitted to [facility] in 04/2021 with Hb 4.8, transfused 7 units pRBC He underwent EGD and colonoscopy were normal. Capsule endoscopy reviewed bleeding lesions. Push enteroscopy done April 2021 which showed bleeding AVMs - Currently no active bleeding. He follows GI. Octreotide was denied by insurance. If bleed again will need double balloon scope. - dropping H/H since 06/2022 when he resumed Eliquis 2.5 mg BID. He denied overt bleeding but required pRBC transfusion on 08/16, 08/28, 10/10. He underwent endoscope at [facility] on 10/09/2022, found bleeders s/p endoscopic hemostatic treatment. Count check monthly, transfusion as needed. - Avoid further iron supplement due to his MPN. Mild iron deficiency is expected and allowed. RTC in 3 months. Some elements copied from my notes 08/20/2022, including the physical exam completed in entirety today, have been updated where appropriate. All reflect current medical decision making from today, 10/16/2022 Medical Decision Making: Problems: Moderate: 1+ chronic illnesses with change Data: Unique test result(s) reviewed: 3+ Unique test(s) ordered: 3+ Risk: Moderate: Moderate risk from testing/treatment and Drug management Medical Decision Making Level: 4 - Moderate [facility] Miscellaneous Notes* Telephone Encounter - Jenn Alcala Ma - 10/16/2022 4:57 PM EDT Pt has appt tomorrow, 10/17 Requested Prescriptions Pending Prescriptions Disp Refills omeprazole (PRILOSEC) 40 mg capsule [Pharmacy Med Name: Omeprazole 40 MG Oral Capsule Delayed Release] 90 capsule 3 Sig: Take 1 capsule by mouth once daily Please review and advise. Jenn Alcala Ma documented in this encounterSelect [facility]29-2023 Miscellaneous Notes* Telephone Encounter - Derek [place], MA - 10/10/2022 10:32 AM EDT Pt came by saying he feels great, they found bleeding in his colon and got it with argon gas, whilehe feels great hes concerned his blood wont be at the low end of nornal, do you want another CBC tocheck? He also has an appoint ment on Friday. Derek Horne MA documented in this encounterSelect [facility]-29-2023 Evaluation note* Diagnosis Stage 3 chronic kidney disease, unspecified whether stage 3a or 3b CKD (HCC)- Primary Acute blood loss anemia Acute posthemorrhagic anemia Severe anemia Other iron deficiency anemia documented in this encounter [facility] Nurse Note* Desire Croft LPN - 10/09/2022 7:33 PM EDT AMBULATORY PATIENT EDUCATION NOTE TOPIC: GI PROCEDURES: Colonoscopy with or without biopsies based on clinical findings Esophagogastroduodenoscopy(EGD) for control of bleeding,dilation(any means),imaging,tube placement READINESS TO LEARN INSTRUCTION PROVIDED TO: Patient, readness to learn accessed prior to procedure COGNITIVE ABILITY: Alert and oriented PTED MOTIVATION TO LEARN: Interested FAMILY SUPPORT: High - Very involved in pt care IPATIENT LEARNS BEST BY: Individual Instruction FACTORS AFFECTING LEARNING: None PHYSICAL LIMITATIONS AFFECTING LEARNING: None LEARNING RESPONSE METHOD OF INSTRUCTION: Individual instruction PATIENT / FAMILY RESPONSE: Verbalizes understanding of: WORSENING CONDITION- Signs and symptoms of aworsening condition that warrant a call to the physician FOLLOW-UP PLAN: Complete - No need for follow-up SUPPLEMENTAL MATERIAL: Procedure Discharge Instructions REFERRAL (RECOMMENDATION): None documented in this encounterSelect [facility]-2023 History and physical note * Hortencia Gallardo MD - 10/09/2022 3:00 PM EDT GI PROCEDURAL HISTORY AND PHYSICAL EXAM PLANNED PROCEDURE Oral DBE and colonoscopy ASSESSMENT GI bleeding SUBJECTIVE HPI: This is a 66 year old male who presents with recurrent GI bleeding and transfusion dependent anemia. On Eliquis for DVT. Last oral intake: No solids within 8 hours. No clear liquids within 2 hours. 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 glover Diverticulitis of intestine with perforation 2004 WITH FISTULA Essential hypertension FHx: colon cancer Mother GERD (gastroesophageal reflux disease) HAS GI - SLEZAK History of chickenpox History of scarlet fever History of spinal fracture 1972 L3-4 Hx of squamous cell carcinoma Hydrocele in adult Hypertriglyceridemia Hypokalemia 03/31/2019 Hypomagnesemia 03/31/2019 Leukocytosis 03/31/2019 Lipoma of back NSTEMI (non-ST elevated myocardial infarction) (HCC) Personal history of skin cancer bcc (r shoulder) 2015, scc (l lateral lower leg) 2018 Renal cancer (HCC) Stage 3 Sleep apnea CPAP PAST SURGICAL HISTORY: PAST SURGICAL HISTORY Procedure Laterality Date BOWEL RESECTION HX 2005 Partial COLONOSCOPY 01/07/2019 hemorrhoids and diverticulosis CYSTOSCOPY 2004 2004 EGD 11/2019 x3 EGD 12/31/2018 Rhodes's, Duodenal erosions. Dr. Enio Degroot. HEMORRHOID SURGERY HX 1999 LAP NEPHRECTOMY Right 2018 DR. MCDONALD PAST SURGICAL HISTORY OF hydrocel PAST SURGICAL HISTORY OF 07/23/2020 left femur REPAIR EPIGASTRIC HERNIA,REDUC STENT PLACEMENT 2018 MARTIN LAD TONSILLECTOMY AND ADENOIDECTOMY HX ads a child CURRENT MEDICATIONS: Prior to Admission medications as of 08/28/22 1522 Medication Sig Last Dose Taking hydroxyurea (HYDREA) 500 mg capsule Take 2 capsules by mouth once daily fluticasone-vilanterol (BREO ELLIPTA) 200-25 mcg/dose inhaler Inhale 1 Inhalation as instructed once daily. zolpidem (AMBIEN) 5 mg tablet Take 1 tablet by mouth at bedtime as needed for up to 90 days. albuterol HFA (PROVENTIL HFA, VENTOLIN HFA) 90 mcg/actuation inhaler INHALE 1 TO 2 PUFFS BY MOUTH EVERY 6 HOURS NEEDED FOR WHEEZING evolocumab (REPATHA SURECLICK) 140 mg/mL pen injector Inject 140 mg subcutaneously every 2 weeks. Patient taking differently: Inject 140 mg subcutaneously once every month. apixaban (ELIQUIS) 2.5 mg tab(s) Take 1 tablet by mouth twice daily. 10/07/2022 at 7a magnesium oxide (MAG-OX) 400 mg (241.3 mg magnesium) tablet Take 0.5 tablets by mouth once daily. 0.5 tablet metoprolol tartrate, short acting, (LOPRESSOR) 50 mg tablet Take 1 tablet by mouth twice daily CPAP valACYclovir (VALTREX) 1 gram One po bid for 3 days as needed for cold sores omeprazole (PRILOSEC) 40 mg capsule Take 1 capsule by mouth once daily. BABY ASPIRIN ORAL Take 81 mg by mouth once daily. calcitriol (ROCALTROL) 0.25 mcg capsule Take 0.25 mcg by mouth once daily. ergocalciferol 50,000 unit capsule (VITAMIN D2, DRISDOL) once every month. calcium carbonate (CALCIUM ANTACID) 500 mg chew One po bid prn gastritis ALLERGIES: ALLERGIES Allergen Reactions Doxycycline Intolerance Rash, diarrhea Penicillin Hives Penicillin V Potass* Other: See Comments OBJECTIVE PHYSICAL EXAM: BP: 182/86 Temp: 36 C (96.8 F) Temp src: Temporal Resp: 16 O2 Therapy: Room Air SpO2: 99 % AIRWAY: Patent, Full neck flexion and extension, Mallampati 1. LUNGS: Normal respiratory effort CARDIAC: PPP, normal HS, no murmur ABDOMEN: Soft, non-tender, no masses SIGNATURE: Hortencia Gallardo MD PATIENT NAME: Adina David DATE: 10/09/2022 TIME: 1701 documented in this encounterSelect [facility]-2023 Miscellaneous Notes* Telephone Encounter - Bailey Fox MA - 10/03/2022 10:25 AM EDT Spoke with pt informed him of Dr. Gallardo's message, sent instructions via . Pt verbalized understanding. documented in this encounterSelect [facility]-21-2023 Miscellaneous Notes* Telephone Encounter - Deysi Licona RN - 10/02/2022 4:31 PM EDT GI Pre-Procedure Spoke with patient: Yes Confirmed date scheduled and patient report time: Yes Procedure Planned:Colonoscopy with or without biopsies based on clinical findings Esophagogastroduodenoscopy(EGD) for control of bleeding,dilation(any means),imaging,tube placement Esophagogastroduodenoscopy(EGD) with or without biopies based on clinical findings, removal of polyps or lesions Is the patient on blood thinners?yes Contact PCP for instructions regarding stopping anticoagulant medication pre-procedure Patient contacted their PCP for instructions Procedure Instructions given to patient: Yes, and they verbalized their understanding of instructions given Patient instructed to take prescribed preparation prior to procedure:Yes, and they verbalized theirunderstanding of instructions given Patient instructed to have family/friend present for procedure transport home:Patient/patient artist's representative was told that if they do not have a responsible adult accompany them to their procedure; and remain in the endoscopy area until they are discharged; that their procedure cannot be done with s edation or anesthesia and may be cancelled. and They verbalized their understanding and agree to have a responsible adult accompany the patient to their procedure and remain in the endoscopy area. Any barriers to Patient learning: Patient/Patient Bell Spinner responded appropriately on phone. Type of instruction given: Verbal by telephone contact. DEYSI Licona RN documented in this encounterSelect [facility]06-15-2023 Miscellaneous Notes* Telephone Encounter - Halle Dale MD - 09/26/2022 8:34 AM EDT Spoke with Mr. David. No need for blood transfusion for now. I will follow up on endoscope finding. * Telephone Encounter - Derek Horne MA - 09/25/2022 2:05 PM EDT Pt came by to see what you thought in regards to his lab results given that he is going in for his procedure soon. Derek Horne MA documented in this encounterSelect [facility]-06-2023 Miscellaneous Notes* Telephone Encounter - Halle Dale MD - 09/17/2022 5:14 PM EDT We will transfuse if Hb<8. Please let him know. * Telephone Encounter - Derek Horne MA - 09/17/2022 11:38 AM EDT Pt wanted to know if he could get more blood since after his second unit he was only up to 8.5 Derek Horne MA documented in this encounterSelect [facility]-2023 History of Present illness Narrative* Wilton Palma RN - 09/16/2022 10:30 AM EDT CDM Telephonic Outreach Provider Action/FYI CDM: CKD 08/26/22 H/H 7.7 / 26.3, 08/28/22 RBC Infusion, 09/10/22 H/H 8.5/ 28.8 Scheduled 10/09/22 for Balloon Antegrade, Dx: Gastrointestinal hemorrhage Pt denies feeling lightheaded or dizziness, feels tired frequently, denies needs Contacted for: Routine Telephonic Outreach Contact made with patient: Yes Patient identified by name and date of . Discussed care with patient Are you experiencing any new or worsening symptoms you need to talk about today? No Disease Specific Do you check your blood pressure at home? Yes, Enter readings: 123/68 Do you have new or worsening shortness of breath with activity? No Do you feel like you are dehydrated for any reason, including not being able to eat or drink normally, or having less urine/much darker urine than normal for you? No Do you check your daily weight at home? Yes, Have you noticed a sudden gain in weight greater than three pounds in a day or three pounds in a week? No Based on color checker roving or yarn, the following disposition is advised: No symptoms or symptoms present, not severe. Routed to: No Action Needed NYDIA Education Provided this Outreach: No Wilton Palma RN September 16, 2022 10:34 AM documented in this encounterSelect [facility]-2023 History of Present illness Narrative* Halle Dale MD - 08/20/2022 4:26 PM EDT PROGRESS NOTE 08/20/2022 Chief Complaint: Mr. Adina David is here to follow up his hematological conditions (CLL, MPN, VTE, bleeding) Interval History: He remains on hydrea 1000 mg daily. Found to have LLE DVT on 07/04/2022. Started back on Eliquis 2.5 mg BID since then. Hb has been dropping, Hb 7.8, received 1 unit pRBC on 08/16/2022. Denied any overt bleeding. Scheduled to see GI in September 2022. Review of Systems Constitutional: Positive for fatigue. Negative for activity change, appetite change, chills, diaphoresis, fever and unexpected weight change. HENT: Negative for mouth sores, sore throat, trouble swallowing and voice change. Eyes: Negative for photophobia and visual disturbance. Respiratory: Negative for cough, chest tightness, shortness of breath, wheezing and stridor. Cardiovascular: Negative for chest pain, palpitations and leg swelling. Gastrointestinal: Negative for abdominal distention, abdominal pain, anal bleeding, blood in stool,constipation, diarrhea, nausea, rectal pain and vomiting. Endocrine: Negative for cold intolerance and heat intolerance. Genitourinary: Negative for decreased urine volume, difficulty urinating, dysuria, enuresis, flank pain, frequency, genital sores, hematuria and urgency. Nocturia and incontinence Musculoskeletal: Negative for arthralgias, back pain, gait problem, joint swelling, myalgias, neck pain and neck stiffness. Skin: Negative for color change, pallor, rash and wound. Neurological: Positive for numbness. Negative for dizziness, tremors, seizures, syncope, facial asymmetry, speech difficulty, light-headedness and headaches. Hematological: Negative for adenopathy. Does not bruise/bleed easily. Psychiatric/Behavioral: Negative for sleep disturbance. 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 glover Diverticulitis of intestine with perforation 2004 WITH FISTULA Essential hypertension FHx: colon cancer Mother GERD (gastroesophageal reflux disease) HAS GI - SLEZAK History of chickenpox History of scarlet fever History of spinal fracture 1972 L3-4 Hx of squamous cell carcinoma Hydrocele in adult Hypertriglyceridemia Hypokalemia 03/31/2019 Hypomagnesemia 03/31/2019 Leukocytosis 03/31/2019 Lipoma of back NSTEMI (non-ST elevated myocardial infarction) (HCC) Personal history of skin cancer bcc (r shoulder) 2015, scc (l lateral lower leg) 2018 Renal cancer (HCC) Stage 3 Sleep apnea CPAP ALLERGIES Allergen Reactions Doxycycline Intolerance Rash, diarrhea Penicillin Hives Penicillin V Potass* Other: See Comments Current Outpatient Medications Medication Sig Dispense Refill fluticasone-vilanterol (BREO ELLIPTA) 200-25 mcg/dose inhaler Inhale 1 Inhalation as instructed once daily. 60 Each 2 zolpidem (AMBIEN) 5 mg tablet Take 1 tablet by mouth at bedtime as needed for up to 90 days. 30 tablet 2 albuterol HFA (PROVENTIL HFA, VENTOLIN HFA) 90 mcg/actuation inhaler INHALE 1 TO 2 PUFFS BY MOUTH EVERY 6 HOURS NEEDED FOR WHEEZING 9 g 0 evolocumab (REPATHA SURECLICK) 140 mg/mL pen injector Inject 140 mg subcutaneously every 2 weeks. (Patient taking differently: Inject 140 mg subcutaneously once every month.) 4 Each 5 apixaban (ELIQUIS) 2.5 mg tab(s) Take 1 tablet by mouth twice daily. 60 tablet 4 hydroxyurea (HYDREA) 500 mg capsule Take 2 capsules by mouth once daily. 2 tablets once daily 60 capsule 2 magnesium oxide (MAG-OX) 400 mg (241.3 mg magnesium) tablet Take 0.5 tablets by mouth once daily. 0.5 tablet 90 tablet 3 metoprolol tartrate, short acting, (LOPRESSOR) 50 mg tablet Take 1 tablet by mouth twice daily 180 tablet 3 CPAP valACYclovir (VALTREX) 1 gram One po bid for 3 days as needed for cold sores 30 tablet 11 omeprazole (PRILOSEC) 40 mg capsule Take 1 capsule by mouth once daily. 90 capsule 3 BABY ASPIRIN ORAL Take 81 mg by mouth once daily. calcitriol (ROCALTROL) 0.25 mcg capsule Take 0.25 mcg by mouth once daily. ergocalciferol 50,000 unit capsule (VITAMIN D2, DRISDOL) once every month. calcium carbonate (CALCIUM ANTACID) 500 mg chew One po bid prn gastritis 60 tablet 5 Current Facility-Administered Medications Medication Dose Route Frequency Provider Last Rate Last Admin octreotide LAR 20 mg depot (monthly) injection (SandoSTATIN LAR) 20 mg INTRAMUSCULAR q 1 MONTH Hortencia Gallardo MD Social History: in 11/2020 from breast cancer. He lives by himself. Daughter is around, 2 grandchildren. Retired. Former smoker, quit in 1990. Family History: Mother of colon cancer at age 85. No siblings, 1 daughter, w/o malignancy. I have confirmed and edited as necessary, the PFSH and ROS obtained by myself BP 154/71 Pulse 87 Temp (Src) 98.2 (Temporal) Resp 18 Ht 5' 10 (1.78m) Wt 210 lb (95.3kg) SpO2 98% BMI 30.13 kg/(m^2). Physical Exam Constitutional: General: He is not in acute distress. Appearance: Normal appearance. He is not ill-appearing, toxic-appearing or diaphoretic. HENT: Head: Normocephalic and atraumatic. Mouth/Throat: Mouth: Mucous membranes are moist. Eyes: General: No scleral icterus. Conjunctiva/sclera: Conjunctivae normal. Cardiovascular: Rate and Rhythm: Normal rate and regular rhythm. Pulses: Normal pulses. Heart sounds: No murmur heard. No friction rub. No gallop. Pulmonary: Effort: Pulmonary effort is normal. No respiratory distress. Breath sounds: No stridor. No wheezing, rhonchi or rales. Abdominal: General: Abdomen is flat. Bowel sounds are normal. There is no distension. Palpations: Abdomen is soft. There is no mass. Tenderness: There is no abdominal tenderness. There is no guarding or rebound. Musculoskeletal: General: No swelling or deformity. Normal range of motion. Cervical back: Normal range of motion and neck supple. Right lower leg: No edema. Left lower leg: No edema. Lymphadenopathy: Cervical: No cervical adenopathy. Skin: General: Skin is warm and dry. Coloration: Skin is not jaundiced. Findings: No bruising or rash. Neurological: General: No focal deficit present. Mental Status: He is alert and oriented to person, place, and time. Psychiatric: Mood and Affect: Mood normal. Behavior: Behavior normal. Labs: Component Latest Ref Rng & Units 08/14/2022 WBC 3.70 - 11.00 k/uL 42.50 (H) RBC 4.20 - 6.00 m/uL 2.30 (L) HGB 13.7 - 17.5 g/dL Hematocrit 39.0 - 51.0 % 26.6 (L) MCV 80.0 - 100.0 fL 115.7 (H) MCH 26.0 - 34.0 pg 33.9 MCHC 30.5 - 36.0 g/dL 29.3 (L) RDW 11.6 - 14.4 % RDW-SD 36.1 - 45.8 fl Platelet Count 150 - 400 k/uL 662 (H) MPV 9.0 - 12.7 fL 9.7 Nucleated RBC % 0.0 - 0.2 % Nucleated RBC Absolute 0.00 - 0.01 thou/cmm Seg Neutrophil % Lymphocyte % Monocyte % Eosinophil % Basophil % Atypical Lymph % Metamyelocytes % Myelocyte % Abs. Neut(Anc) 1.78 - 5.38 thou/cmm Immat Grans Abs Calc 0.00 - 0.05 thou/cmm Abs. Lymph 0.84 - 2.85 thou/cmm Abs. [place] 0.30 - 0.82 thou/cmm Abs. Eosin 0.04 - 0.54 thou/cmm Abs. Baso 0.01 - 0.08 thou/cmm Smudge Cells RBC Morphology Anisocytosis Present Hypochromasia Polychromasia Slight Other Immatures % Blast and Bl # thou/cmm Macro-Ovalocyte Spherocytosis CBC Interp. Pathologist Hemoglobin 13.0 - 17.0 g/dL 7.8 (L) RDW-CV 11.5 - 15.0 % 15.6 (H) NRBC /100 WBC 0.0 Absolute nRBC <0.01 k/uL <0.01 Neut% % 13.0 Abs Neut (ANC) 1.45 - 7.50 k/uL 5.53 Lymph% % 77.0 Abs Lymph 1.00 - 4.00 k/uL 31.03 (H) [place]% % 1.0 Abs [place] <0.87 k/uL 0.43 Eosin% % 0.0 Abs Eosin <0.46 k/uL 0.00 Baso% % 0.0 Abs Baso <0.11 k/uL 0.00 Prolymph % % 9.0 Platelet Estimate Increased Giant Platelets Red Cell Morph Reviewed: see results of individual morphologies Ovalocytes Few RBC Fragments None Seen Tear Drop Few DTYPE Manual Component Latest Ref Rng & Units 08/06/2022 Albumin 3.9 - 4.9 g/dL 4.5 Calcium 8.5 - 10.2 mg/dL 8.9 Phosphorus 2.7 - 4.8 mg/dL 3.5 Glucose 74 - 99 mg/dL 99 BUN 9 - 24 mg/dL 20 Creatinine 0.73 - 1.22 mg/dL 1.73 (H) Sodium 136 - 144 mmol/L 136 Potassium 3.7 - 5.1 mmol/L 4.5 Chloride 97 - 105 mmol/L 101 CO2 22 - 30 mmol/L 22 Anion Gap 9 - 18 mmol/L 13 eGFR >=60 mL/min/1.73m 42 (L) Imaging: CT chest w/ IV contrast on 08/13/2022 1. No consolidation or pleural effusion. Mild peribronchial thickening. 2. Few pulmonary nodules are new since 2020, possibly inflammatory however given the history of malignancy consider CT abdomen and pelvis with contrast for further evaluation and possible follow-up CT of the chest in 3 months to assess for stability. 3. Several lymph nodes in the chest are mildly decreased in size compared to 202. Partially imagedlymph nodes in the upper abdomen as well. RLE venous duplex on 07/18/2022 Negative study for proximal DVT in the right lower extremity. Negative study for calf DVT in the right lower extremity. Positive study for superficial thrombophlebitis in the imaged segments of the right lower extremity. Superficial thrombophlebitis involving the right lesser saphenous vein. There is peripheral echogenic material in the left common femoral vein which is not fully compressible the appearance is suggestive of chronic DVT. LLE venous duplex on 07/04/2022 Occlusive deep venous thrombosis of the popliteal vein that is new since the prior exam. Chronic nonocclusive deep venous thrombosis is again noted in the left femoral vein. No other evidence of proximal DVT in the left lower extremity. Negative study for calf DVT in the left lower extremity. Negative study for superficial thrombophlebitis in the imaged segments of the left lower extremity. US kidney/bladder on 02/13/2022 Unremarkable left kidney. Right nephrectomy. CT A/P w/ IV contrast on 01/19/2022 ([facility]) Right inguinal hernia containing loops of bowel. Early small bowel obstruction is suspected, with source of obstruction at the right inguinal hernia. Follow up is recommended. Numerous borderline to slightly enlarged mesenteric lymph nodes with the right mid to lower abdomen. Follow up is recommended. Mild hydronephrosis of the left kidney with moderate to large amount of perinephritic fat stranding. There is hydroureter on the left with question caliber change of the ureter near the level of the iliac vessels versus obstruction at the level of the UVJ. No obvious renal stone demonstrated. Follow up urologic consultation suggested. CT C/A/P w/o contrast 01/23/2021 1. Enlarged lymph node paraesophageal region of the posterior mediastinum stable since prior exam. Of unclear etiology. Metastatic disease not excluded. 2. Increase in size of ovoid nodule along left hemidiaphragm. Metastatic disease is a consideration. This nodule would be difficult to percutaneously biopsy given its size and location. Follow-up is recommended. 3. New ovoid density posteriorly at the left lung base. It may represent new very small pleural effusion. Recommend attention to this on follow-up scans. 4. Extensive lymph node enlargement throughout the periportal region and throughout the mesenteric fat in the right abdomen. Not significantly changed since prior CT scan 07/19/2020. Stable pelvic and inguinal lymph node prominence. 5. Status post open reduction internal fixation proximal left femur fracture. Fracture line still visible. RLE venous duplex on 10/18/2021 Interval improvement in left lower extremity DVT, now with long segment eccentric non-occlusive thrombus involving femoral and popliteal veins. Negative study for calf DVT in the left lower extremity. Negative study for superficial thrombophlebitis in the imaged segments of the left lower extremity. Pathology: none Assessment and Plan: Mr. Adina David is a pleasant 66 yo M with multiple comorbidity including clear cell RCC, CLL, MPN, DVT, CAD, CKD III and chronic anemia, who presents to follow up. 1. Chronic macrocytic anemia - Hb baseline 8-10. Causes of chronic anemia is multifactorial, including CKDIII, GIB, iron deficiency, CLL, MPN on hydrea - drop in H/H since 06/2022 when he resumed Eliquis 2.5 mg BID for new DVT. Hb dropped to 7.8, macrocytosis is due to hydrea. He is symptomatic with fatigue and CALVILLO. He received 1 unit pRBC on 08/16/2022. Denied overt bleeding. Scheduled to follow up with GI in 09/2022. Count check every other week. Transfusion support as needed. Avoid iron infusion due to MPN 2. ccRCC - diagnosed in 05/2017 - s/p right radical nephrectomy, clear cell RCC, WHO/ISUP grade 2, with renal vein invasion and renal vein thrombosis, 9 cm in size, pT3a pNx - no adjuvant treatment - CT A/P from 01/19/2022 and US kidney/bladder from 02/13/2022 were reviewed showing BARNEY. - recent CT chest from 08/13/2022 was reviewed showing few pulmonary nodules <1 cm in size, nonspecific, favor inflammatory or reactive process. Arrange follow up CT chest in 3-6 months 3. CLL - diagnosed in 04/2017, peripheral blood flow showed a CD5-positive B-cell lymphoproliferative disorder. The immunophenotype is consistent with CLL/SLL - CT C/A/P showed mediastinal and abdominal adenopathy, stable compared scan in 07/2020, likely fromCLL/SLL process. - Su stage I. No indication to initiate treatment 4. Essential thrombocythemia - platelet count over 1000K, without clear secondary causes - CALR no variant detected; JAK2 V617F not detected; BCR-ABL not detected. MPL-a sequence change ofc.1502T>C in exon 10 was detected at approximately 18% allelic proportion; a sequence change of c. 1514G>A ([id number]) in exon 10 was detected at approximately 16% allelic proportion - he was started on hydrea since 04/2020, 500 mg BID - labs from 08/14/2022 was reviewed WBC 42.50, Hb 7.8, Hct 26.6, MCV 115.7, platelet 662K, ANC 5.53, lymphocyte 31.03. Continue hydrea at the same dose, along with baby ASA and Eliquis 2.5 mg BID 5. DVT - 03/14/2021, DVT of indeterminate age in the common femoral vein throughout. Possibly provoked, as he had left femur subtrochanteric fracture s/p internal fixation with persistent swelling postop - on Eliquis 5 mg BID since 03/2021. Dose reduce to 2.5 mg BID in 05/2021 due to renal dysfunction and major GIB. D/C Eliquis in 09/2021. 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 He's back on Eliquis 2.5 mg BID, plan for 3 months till end of September 2022, possibly longer if he's able to tolerate. 6. BPH - LUTS from BPH. - PSA 8.67. - prior prostate biopsy showed no evidence of cancer. - Being followed and managed by urology 7. GIB - admitted to [facility] in 04/2021 with Hb 4.8, transfused 7 units pRBC He underwent EGD and colonoscopy were normal. Capsule endoscopy reviewed bleeding lesions. Push enteroscopy done April 2021 which showed bleeding AVMs - Currently no active bleeding. He follows GI. Octreotide was denied by insurance. If bleed again will need double balloon scope. - dropping H/H since 06/2022 when he resumed Eliquis 2.5 mg BID. He denied overt bleeding. Scheduledto see GI in 09/2022. Count check every other week, transfusion as needed. - Avoid further iron supplement due to his MPN. Mild iron deficiency is expected and allowed. RTC in 2 months. Some elements copied from my notes 06/21/2022, including the physical exam completed in entirety today, have been updated where appropriate. All reflect current medical decision making from today, 08/20/2022 Medical Decision Making: Problems: High: Illness/injury w/ threat to life/body function Data: Unique test result(s) reviewed: 3+ Unique test(s) ordered: 3+ Risk: Moderate: Moderate risk from testing/treatment and Drug management Medical Decision Making Level: 4 - Moderate documented in this [facility]Select [facility] Miscellaneous Notes* Telephone Encounter - Derek Horne MA - 08/19/2022 9:12 AM EDT Pt scheduled to come in tomorrow at 10:30 Derek Horne MA * Telephone Encounter - Halle Dale MD - 08/19/2022 8:50 AM EDT I need to see him sooner. Please schedule, thanks * Telephone Encounter - Halle Dale MD - 08/19/2022 8:[address] Ramos, thank you for your message. I reviewed his CT scan. Lung nodules are small and non-specific. Given the size is < 1cm, PET scan won't be helpful. I would monitor these nodules on subsequent scan. He's a tough case to manage, given his history of MPN, thrombosis, and GIB. Given that he has acuteDVT, I agree that he needs anticoagulation, meanwhile we also need to address his GIB. I will have my office to schedule a sooner visit to see him. Thanks for touching base. * Telephone Encounter - Ulises Ramos DO - 08/15/2022 9:[address] Dale's office and let her know there are some new nodules on his CT. I am deferring to her on whether we need to get a PET scan for him. I also would like her input on the eliquis. His dvt wasextending so I put him back on this, but with his bleeding issues I am not sure if this is the our best option or not documented in this encounterSelect [facility]-04-[facility]23 History of Present illness Narrative* Wilton Palma RN - 08/15/2022 11:58 AM EDT CDM Telephonic Outreach Provider Action/FYI : Routed updates to Dr. Richard BOONEM: CKD Spk with Pt he denies new or worsening Urinary/ CKD symptoms Pt has Appt with Dr.Charles Sorensen Pulmonology with [facility], Pt is in process of scheduling a sleep study at [facility]. Pt reports will have a blood transfusion for H/H 7.8 / 26.6, Pt reports an episode of feeling lightheaded when getting up too fast, denies falls, Instructed on fall prevention, Pt verbalized understanding. Instructed to notify PCP of new or worsening symptoms or concerns, he verbalized understanding. ADL, Falls, Goals completed Contacted for: Routine Telephonic Outreach Contact made with patient: Yes Patient identified by name and date of . Discussed care with patient Are you experiencing any new or worsening symptoms you need to talk about today? Yes Based on color checker roving or yarn, the following disposition is advised: Symptoms present, not severe. Routed to: No Action Needed NYDIA Education Provided this Outreach: No Wilton Palma RN August 15, 2022 12:27 PM documented in this encounterSelect [facility]-02-[facility]23 History of Present illness Narrative* Deysi Melchor RT(R) - 08/13/2022 9:00 AM EDT Radiology Service Progress Note DATE OF SERVICE: August 13, 2022 TIME: 9:06 AM PATIENT IDENTITY VERIFICATION COMPLETED USING TWO (2) STANDARD IDENTIFIERS: Name and Date of confirmed by patient verbally. FALL SCREENING: Has the patient had 2 falls in the last year or 1 fall with injury or currently using an Ambulatory Assistive Device (Walker, Cane, Wheelchair, Crutches, etc.)? No PATIENT GENDER DATA: Male PATIENT RELEVANT IMPLANT DATA REVIEWED: Not Applicable ALLERGIES: Reviewed and unchanged CONTRAST ALLERGY: NO. EXAM: CT -CONTRAST INDUCED NEPHROPATHY RISK FACTORS: Patient age > 60 years CREATININE: Creatinine Date Value Ref Range Status 08/06/2022 1.73 (H) 0.73 - 1.22 mg/dL Final 07/30/2022 1.71 (H) 0.73 - 1.22 mg/dL Final 06/19/2022 1.62 (H) 0.73 - 1.22 mg/dL Final Estimated Glomerular Filtration Rate Date Value Ref Range Status 08/06/2022 42 (L) >=60 mL/min/1.73m Final Comment: Estimated Glomerular Filtration Rate (eGFR) is calculated using the 2020 CKD-EPI creatinine equation. This equation utilizes serum creatinine, sex, and age as parameters. The creatinine assay has traceable calibration to isotope dilution- mass spectrometry. Refer to KDIGO guidelines for clinical interpretation. In patients with unstable renal function, e.g. those with acute kidney injury, the eGFRmay not accurately reflect actual GFR. eGFR- Date Value Ref Range Status 05/28/2021 41 Final P.O.C.T. RESULTS: POC done: Yes, See Lab Tab August 13, 2022 TREATMENT: N/A and visipaque used, OP water recommendation given PERIPHERAL IV DATA: Ambulatory: A peripheral IV was started in the Right antecubital site with a Butterfly: 22 gauge and diffusics. RADIOLOGY DEPARTMENT: CT; Exam(s) Completed: Chest SIGNATURE: RT Jacob(R) PATIENT NAME: Adina David DATE: August 13, 2022 TIME: 9:06 AM documented in this encounterSelect Medical [facility]05-01-2023 Miscellaneous Notes* Telephone Encounter - Derek Horne MA - 08/12/2022 4:28 PM EDT Message has been sent to the infusion centers Derek Horne MA * Telephone Encounter - Halle Dale MD - 08/12/2022 12:18 PM EDT OK to transfuse 1 unit pRBC. Type and screen order is in. Please let him know, also remind him to get in contact with GI as we are concerned that he's bleeding again. * Telephone Encounter - Derek Horne MA - 08/12/2022 11:58 AM EDT Pt called wanting to know about getting blood, at his last count he states it was 8.1 Derek Horne MA documented in this encounterSelect Medical [facility]04-26-2023 Instructions* Patient Instructions* Hortencia Gallardo MD - 08/07/2022 12:55 PM EDT Images from the original note were not included. Bowel Preparation Instructions for: Miralax-Gatorade Preparations IF YOU DO NOT FOLLOW THESE DIRECTIONS, YOUR COLONOSCOPY WILL BE CANCELLED. Baum Instructions: Your bowel must be empty so that your doctor can clearly view your colon. Follow all of the instructions in this handout EXACTLY as they are written. Do NOT eat any solid food the ENTIRE day before your colonoscopy. Buy your bowel preparation at least 5 days before your colonoscopy. Four (4) Dulcolax laxative tablets containing 5mg of bisacodyl each (NOT Dulcolax stool softener) One (1) 8.3oz. bottle Miralax (238 grams) or generic equivalent 2 x 32oz. Bottles of Gatorade (NOT RED) Diabetic Patients: Use G2 (Gatorade 2) TRANSPORTATION on the Day of Your Exam A responsible adult MUST be present with you at Check In prior to your colonoscopy and REMAIN in the endoscopy area until you are discharged. You are NOT ALLOWED to drive, take a taxi or bus, or leave the Endoscopy Center ALONE. If you do not have a responsible local driver (family member or friend) withyou to take you home, your exam cannot be done with sedation and will be cancelled. Please bring a list of all of your current medications, including any [id number] medications with you. Medications If you take insulin, diabetic medications or blood thinners such as Coumadin (warfarin), Plavix (clopidogrel), Ticlid (ticlopidine hydrochloride), Agrylin (anagrelide), Xarelto (Rivaroxaban), Pradaxa(Dabigatran), Eliquis (Apixaban), and Effient (Prasugrel). You MUST call the doctors who orders those medicines for instructions on altering the dosage before your colonoscopy. All other medications should be taken the day of the exam with a sip of water including ASPIRIN. Five (5) Days Before Your Colonoscopy Do NOT take medicines that stop diarrhea - such as Imodium, Kaopectate, or Pepto Bismol. Do NOT take fiber supplements - such as Metamucil, Citrucel, or Perdiem. Do NOT take products that contain iron - such as multi-vitamins (the label lists what is in the products). Three (3) Days Before Your Colonoscopy Do NOT eat high-fiber foods - such as popcorn, beans, seeds (flax, sunflower, quinoa), multigrain bread, nuts, salad/vegetables, or fresh and dried fruit. 1 Bowel Preparation Instructions for: Miralax-Gatorade Preparations One (1) Day Before Your Colonoscopy Only drink clear liquids the ENTIRE DAY before your colonoscopy. Do NOT eat any solid foods. Drink at least 8 ounces of clear liquids every hour after waking up. The clear liquids you can drink include: Clear Liquid (NO RED LIQUIDS) DO NOT DRINK Gatorade, Pedialyte or Powerade Clear broth or bouillon Coffee or tea (no milk or non-dairy creamer) Carbonated and non-carbonated soft drinks Ortega-Aid or other fruit flavored drinks Strained fruit juices (no pulp) Jell-O, popsicles, hard candy Water Alcohol Milk or non-dairy creamers Noodles or vegetables in soup Juice with pulp Liquid you cannot see through Do not use tobacco/vaping products Mix 1/2 of Miralax bottle (119 grams) in each 32 ounces of Gatorade bottle until dissolved. Keep cool in the refrigerator. DO NOT ADD ICE. The bowel preparation solution will be consumed in two parts. Part 1 5:00 PM - Evening before your colonoscopy Take 4 Dulcolax tablets. 6 PM - Evening before your colonoscopy Drink 32 oz. of the mixed solution. Drink an 8 oz. glass of bowel preparation every 15 minutes for a total of 4 glasses. Fifteen (15) minutes later, drink an 8 oz. glass of of clear liquids every 15 minutes for a total of 2 glasses. You may continue to drink clear liquids till midnight. Part 2 On the day of your colonoscopy you may drink clear liquids up to (three) 3 hours prior to procedure. 4 1/2 hours before your colonoscopy Take another 32 oz. bottle of mixed solution. Drink an 8 oz. glass of bowel prep every 15 minutes for a total of 4 glasses. Fifteen (15) minutes later, drink an 8 oz. glass of clear liquids every 15 minutes for a total of 2glasses. You may continue to drink clear liquids up to (three) 3 hours before your exam. 2 03/2019 documented in this encounterSelect Medical [facility]04-26-2023 History of Present illness Narrative* Hortencia Gallardo MD - 08/07/2022 10:00 AM EDT SMALL BOWEL DISEASES AND NUTRITION FOLLOW-UP VISIT Date of direct communication: 08/07/2022 [x] I have communicated my name and active licensure. The patient's identity and physical location were verified at the time of this visit. Either the patientor their legal artist's representative has been informed of the risks and benefits of -- and alternatives to-- treatment through a remote evaluation and consents to proceed with the evaluation remotely. Patient consented to video visit. 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 Also with: CLL on hydroxyurea; CAD s/p PTCA; CKD s/p R nephrectomy; GERD. He has required iron infusions. DIAGNOSTIC ISSUES AND PLAN: #) Obscure GI bleeding -Oral DBE + colonoscopy -Continue to monitor CBC, iron indices with replacement as needed (Heme following) #) On anticoagulation -Hold Eliquis starting the day before the procedures FOLLOW-UP: Post-procedure Hortencia Gallardo MD 08/07/2022 Staff Line [facility] [place] PRIMARY PROBLEM: iron def anemia, small bowel AVM's INTERVAL HISTORY: -Since his last appointment, he was re-started on low-dose Eliquis for DVT -Hgb slowly drifting down since re-starting anticoagulation 10 --> 8 -Currently having issues with chronic cough since April this year -Iron def with ferritin 14, TIBC 452, 8% transferrin saturation -Has not visualized any overt GI bleeding Anticoagulation: Eliquis NSAID: ASA Abdominal surgery: Incarcerated hernia reduction without bowel resection; sigmoidectomy for diverticulitis Weight history: Last Wt 07/30/22 : 93.4 kg (206 lb) 07/15/22 : 90.7 kg (200 lb) 07/11/22 : 92.9 kg (204 lb 14.4 oz) 07/02/22 : 92.3 kg (203 lb 8 oz) 06/21/22 : 94.3 kg (208 lb) CURRENT MEDICATIONS: Current Outpatient Medications Medication Sig Dispense Refill fluticasone-vilanterol (BREO ELLIPTA) 200-25 mcg/dose inhaler Inhale 1 Inhalation as instructed once daily. 60 Each 2 zolpidem (AMBIEN) 5 mg tablet Take 1 tablet by mouth at bedtime as needed for up to 90 days. 30 tablet 2 albuterol HFA (PROVENTIL HFA, VENTOLIN HFA) 90 mcg/actuation inhaler INHALE 1 TO 2 PUFFS BY MOUTH EVERY 6 HOURS NEEDED FOR WHEEZING 9 g 0 evolocumab (REPATHA SURECLICK) 140 mg/mL pen injector Inject 140 mg subcutaneously every 2 weeks. (Patient taking differently: Inject 140 mg subcutaneously once every month.) 4 Each 5 apixaban (ELIQUIS) 2.5 mg tab(s) Take 1 tablet by mouth twice daily. 60 tablet 4 hydroxyurea (HYDREA) 500 mg capsule Take 2 capsules by mouth once daily. 2 tablets once daily 60 capsule 2 magnesium oxide (MAG-OX) 400 mg (241.3 mg magnesium) tablet Take 0.5 tablets by mouth once daily. 0.5 tablet 90 tablet 3 metoprolol tartrate, short acting, (LOPRESSOR) 50 mg tablet Take 1 tablet by mouth twice daily 180 tablet 3 CPAP valACYclovir (VALTREX) 1 gram One po bid for 3 days as needed for cold sores 30 tablet 11 omeprazole (PRILOSEC) 40 mg capsule Take 1 capsule by mouth once daily. 90 capsule 3 BABY ASPIRIN ORAL Take 81 mg by mouth once daily. calcitriol (ROCALTROL) 0.25 mcg capsule Take 0.25 mcg by mouth once daily. ergocalciferol 50,000 unit capsule (VITAMIN D2, DRISDOL) once every month. calcium carbonate (CALCIUM ANTACID) 500 mg chew One po bid prn gastritis 60 tablet 5 Current Facility-Administered Medications Medication Dose Route Frequency Provider Last Rate Last Admin octreotide LAR 20 mg depot (monthly) injection (SandoSTATIN LAR) 20 mg INTRAMUSCULAR q 1 MONTH Hortencia Gallardo MD ALLERGIES: ALLERGIES Allergen Reactions Doxycycline Intolerance Rash, diarrhea Penicillin Hives Penicillin V Potass* Other: See Comments PAST MEDICAL/SURGICAL HISTORY, SOCIAL HISTORY, AND FAMILY HISTORY: Reviewed and is unchanged aside from the changes documented in HPI. REVIEW OF SYSTEMS: ROS completed and negative outside of the systems documented in the HPI. INVESTIGATIONS: All available pertinent interval investigations were reviewed and were notable for: CBC Latest Ref Rng & Units 07/18/2022 07/30/2022 08/06/2022 WBC 3.70 - 11.00 k/uL 61.47(H) 37.71(H) 51.71(H) RBC 4.20 - 6.00 m/uL 2.81(L) 2.45(L) 2.34(L) HGB 13.7 - 17.5 g/dL - - - HEMOGLOBIN 13.0 - 17.0 g/dL 10.3(L) 8.7(L) 8.1(L) HEMATOCRIT 39.0 - 51.0 % 33.7(L) 29.5(L) 27.7(L) MCV 80.0 - 100.0 fL 119.9(H) 120.4(H) 118.4(H) MCH 26.0 - 34.0 pg 36.7(H) 35.5(H) 34.6(H) MCHC 30.5 - 36.0 g/dL 30.6 29.5(L) 29.2(L) RDW 11.6 - 14.4 % - - - RDW-CV 11.5 - 15.0 % 15.7(H) 16.2(H) 15.9(H) PLATELETS 150 - 400 k/uL 755(H) 635(H) 915(H) MPV 9.0 - 12.7 fL 9.1 9.7 9.3 NEUT % (MANUAL DIFF) % - - - LYMPH % (MANUAL DIFF) % - - - MONO % (MANUAL DIFF) % - - - BASO % (MANUAL DIFF) % - - - BASO% % 0.0 1.0 0.2 ABS NEUT (ANC) 1.45 - 7.50 k/uL 6.15 5.28 4.72 ABS LYM 1.00 - 4.00 k/uL - - - ABS LYMPH 1.00 - 4.00 k/uL 48.56(H) 31.30(H) 28.38(H) ABS MONO <0.87 k/uL 0.61 0.38 18.29(H) ABS MONO (MANUAL DIFF) <0.87 k/uL - - - ABS EOS (MANUAL DIFF) <0.46 k/uL - - - ABS EOSIN <0.46 k/uL 0.00 0.00 0.05 ABS BASO <0.11 k/uL 0.00 0.38(H) 0.08 ABS BASO (MANUAL DIFF) <0.11 k/uL - - - NRBC /100 WBC 0.0 0.0 0.1 META% % - - - MYELO% % - - - ANISOCYTOSIS - Present Present - OVALOCYTES - - - - POLYCHROMASIA - Slight Slight - RBC FRAGMENTS None Seen - - - TARGET CELLS - - - - PLATELET ESTIMATE - Increased Increased - DIFF TYPE - - - - Capsule study 2019: 1st gastric image:00 00 01 1st duodenal image: 17 36 1st cecal image:does not reach the cecum in 13 hours and 19 minutes GET: 00 SBTT:n/a TTT: Prep: Fair Gastric images are limited. Small bowel: There is a large duodenal diverticulum. The capsule stays within the diverticulum for over 11 hours before exiting and moving distally. As it leaves the diverticulum, there is a small amount of fresh red blood, but I suspect this may be due to mucosal trauma related to the capsule passage. The visualized jejunum and ileum appear normal. However, the prep is somewhat poor at this point inthe study. The capsule does not reach the cecum by the time image acquisition ceases. Impression: Duodenal diverticulum. Incomplete small bowel video capsule endoscopy. Video Capsule endoscopy 05-08-2021 First gastric image: 00:02:11 First Duodenal image: 00:33:46 First Cecal image: 05:55:52 Multiple AVMs and active oozing/bleeding noted in duodenum/jejunum areas. AVM also noted in distal small bowel with specs of blood floating. Recommendation: Withhold Eliquis - has been withheld since yesterday after speaking with Dr Marrero (Hospitalist). Plan for Push enteroscopy in the OR tomorrow. EGD and colonoscopy 2019: Both normal PHYSICAL EXAM: Limited with video visit. General: Appears comfortable, relaxed Total time spent on this patient encounter today was >40 mins including: preparation for the visit, review and interpretation of records, direct discussion with the patient, physical examination, documentation, and co- ordination of care. documented in this encounterSelect [facility]04[facility]23 Miscellaneous Notes* Telephone Encounter - Jana Mackey LPN - 08/05/2022 2:40 PM EDT Patient notified. States his CT is scheduled for 08/13/22. Calls he will also ask nephrology. He is awaiting CT for Pulmonary/Dr Rios appointment. Please review and advise further. Patient is awarethe [facility] is out of office this week and returning 08/12/22. * Telephone Encounter - Peter Land DO - 08/05/2022 12:58 PM EDT With one kidney and decreased gfr on lab I'd avoid contrast if possible. Not sure what all testing is for so run it by pcp. May have a reason for this specific test * Telephone Encounter - Loraine Ibarra RN - 08/05/2022 10:23 AM EDT Sent to covering. Patient calling in regards to his CT WITH contrast. He said that he has ONE kidney and wants to know if the contrast is necessary and a good idea. Please advise. documented in this encounterSelect [facility]04-21-2023 Miscellaneous Notes* Telephone Encounter - Halle Dale MD - 08/02/2022 9:13 AM EDT I spoke to him. He's back on Eliquis recently due to a new DVT. Now H/H is dropping compared to 2 weeks ago. He denied overt GIB. He has follow up appointment with GI next week. Encourage him to discuss the concern of GIB and if further workup/intervention is needed. For now will keep him on hydrea as the same dose. Avoid iron infusion for now. 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 All his questions were addressed. * Telephone Encounter - Derek Horne MA - 08/01/2022 3:18 PM EDT Pt called or lab results. Derek Horne MA documented in this encounterSelect [facility]04-20-2023 Miscellaneous Notes* Telephone Encounter - Marlene Blanco Pss - 08/01/2022 10:23 AM EDT Sleep Medicine Referral information submitted to [facility]. Ref# [id number]. [facility] office will call the patient within 7-10 business days to set this appointment up. documented in this encounterSelect [facility]04-17-2023 Miscellaneous Notes* Telephone Encounter - Halle Dale MD - 07/29/2022 9:07 AM EDT Prescription is sent in today. Going forward, he needs to ask his PCP Dr. Ramos about refill and dose adjustment. Please let him know. * Telephone Encounter - Derek Horne MA - 07/26/2022 10:55 AM EDT Pt called to see if Dr Chito can have his zolpidem released earlier as he is out and he would like itincreased to 10 mg. Derek Horne MA documented in this encounterSelect [facility]04-13-2023 Miscellaneous Notes* Telephone Encounter - Darrell Cabezas - 07/25/2022 1:41 PM EDT Order, last office note, and demographics were faxed to Dr Rios as requested * Telephone Encounter - Bernarda Sarah RN - 07/25/2022 12:25 PM EDT Patient requests a referral to pulmonology Dr. Pagan at [phone]. documented in this encounterSelect [facility]04-13-2023 Miscellaneous Notes* Telephone Encounter - Yuko Lauren RN - 07/25/2022 11:08 AM EDT Updated message on cover my meds: Your request has been approved Yuko Lauren RN * Telephone Encounter - Yuko Lauren RN - 07/25/2022 11:04 AM EDT Prior auth for Repatha submitted on cover my meds website. End message as follows: Your information has been submitted to [employer]. [employer] will review the request and will issue a decision, typically within 1-3 days from your submission. You can check the updated outcome later by reopening this request. If [employer] has not responded in 1-3 days or if you have any questions about your ePA request, please contact [employer] at [phone]. If you think there may be a problem with your PA request, use our live chat feature at the bottom right Yuko Lauren RN documented in this encounterSelect [facility]04-10-2023 Miscellaneous Notes* Telephone Encounter - Pratibha Haque MA - 07/22/2022 9:05 AM EDT Patient scheduled 07/30. * Telephone Encounter - Ulises Ramos DO - 07/22/2022 7:37 AM EDT Get him a fu next week to review the pft and discuss all his other stuff as well documented in this encounterSelect [facility]04-07-2023 Miscellaneous Notes* Telephone Encounter - Fidencio Mon RN - 07/19/2022 10:16 AM EDT Pt scheduled for virtual visit on 08/07/22 to discuss POC. Fidencio Mon RN * Telephone Encounter - Tereza Sunshine - 07/11/2022 10:46 AM EDT 07/11/[address] Gallardo, Jeison Hare MD put patient back on Eliquis for DVT Tereza documented in this encounterSelect [facility]04-03-2023 History of Present illness Narrative* Sean Mays MD - 07/15/2022 10:17 AM EDT PRIMARY CARE PHYSICIAN: Ulises Ramos DO REFERRING PHYSICIAN PCP CHIEF COMPLAINT: Patient presents with: CARD Follow Up 3 Month: NSTEMI HISTORY OF PRESENT ILLNESS: Mr. David is a 66 year old male who is seen today for follow-up. Patient has a history significant for LAD, s/p PTCA, CLL followed by Dr. Anguiano, CK D status post right nephrectomy, hypertension, hyperlipidemia, CK D and GERD. Patient was previously established with Dr. Cee and underwent stress testing which showed EF 52% with small reversible defect in inferior apical wall. He underwent cardiac catheterization in March 2018 which showed 60% LAD disease with an insignificant FFR of 0.96. Medical treatment was advised. He was admitted to [facility] in October 2018 with chest tightness with radiation to the jaw and his arms. His troponin was elevated at 3.74. Cardiac catheterization revealed 80% LAD lesion. He underwent successful PTCA with drug-eluting stent to LAD. He complained of shortness of breath with Brilinta and that was transitioned to Plavix. Patient started cardiac rehabilitation and complained of shortness of breath with dizziness and lightheadedness. He was found to be anemic. [facility] with [facility]oscopy and colonoscopy. Colonoscopy identified colonic AV malformation and internal hemorrhoid bleeding. His Plavix was interrupted for a month. He had completed 3 months of dual antiplatelet therapy prior to this GI bleed. Was hospitalized again in March 2019 with electrolyte issues including hypocalcemia hypo kalemiaand hypomagnesemia. He sees Dr. Gruber Patient transitioned his care to tn in March 2019. Patient had a mechanical fall and broke his femur in July 2020. He went to the rehab. He had been complaining of muscle aches and joint pains with statins including Lipitor and Crestor. He is now onRepatha. Patient had an ER visit on December 01, 2020 with chest discomfort which he described as flutter. He also had associated lightheadedness, shortness of breath, nausea. His high sensitivity troponins were unremarkable around 20. His EKG was unchanged. He was discharged home. He was not happy with his care there because of prolonged wait times. Few days ago he also had diffuse body aches including back pain and chest pain which he thinks was due to hypomagnesemia as he had run out of his magnesium oxide and once he restarted taking it symptoms improved. He was seen by Melissa Gottlieb, cardiology nurse practitioner in September 2021. Patient was admitted to the hospital on May 01, 2021, and was discharged on May 16, 2021, was admitted for anemia withsyncope, hemoglobin was found to be 4.8. Received a total of 6 units of packed cells. He was also found to have COVID-19 infection and received monoclonal antibodies and developed hypoxia required remdesivir also dexamethasone. He was complaining of generalized weakness and was undergoing physical therapy at that time. He was offered a stress test which he deferred. Patient continues to have shortness of breath with wheezing and has been treated with steroids and antibiotics and is scheduled for lung function test next week. He is frustrated with this. He has a history of DVT for which she is on Eliquis Last visit, I had restarted him on amlodipine given high blood pressure. He still does not take amlodipine. He is currently on 50 mg twice daily of metoprolol and mentions that his home blood pressure readings have been 140s over 80s in the morning and 100/70 in the evening. He also skips his metoprolol and did not take it last night. Patient is doing well from cardiac standpoint and denies having any chest pain, resting shortness of breath, orthopnea, PND, edema, palpitations, lightheadedness, dizziness, near syncope or syncope. He has been seeing Dr. Warren for CLL and has elevated platelet count. 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 glover Diverticulitis of intestine with perforation 2004 WITH FISTULA Essential hypertension FHx: colon cancer Mother GERD (gastroesophageal reflux disease) HAS GI - SLEZAK History of chickenpox History of scarlet fever History of spinal fracture 1972 L3-4 Hx of squamous cell carcinoma Hydrocele in adult Hypertriglyceridemia Hypokalemia 03/31/2019 Hypomagnesemia 03/31/2019 Leukocytosis 03/31/2019 Lipoma of back NSTEMI (non-ST elevated myocardial infarction) (HCC) Personal history of skin cancer bcc (r shoulder) 2015, scc (l lateral lower leg) 2018 Renal cancer (HCC) Stage 3 Sleep apnea CPAP PAST SURGICAL HISTORY Procedure Laterality Date BOWEL RESECTION HX 2005 Partial COLONOSCOPY 01/07/2019 hemorrhoids and diverticulosis CYSTOSCOPY 2005 2005 EGD 11/2019 x3 EGD 12/31/2018 Rhodes's, Duodenal erosions. Dr. Enio Degroot. HEMORRHOID SURGERY HX 2000 LAP NEPHRECTOMY Right 2018 DR. MCDONALD PAST SURGICAL HISTORY OF hydrocel PAST SURGICAL HISTORY OF 07/23/2020 left femur REPAIR EPIGASTRIC HERNIA,REDUC STENT PLACEMENT 2018 MARTIN LAD TONSILLECTOMY AND ADENOIDECTOMY HX ads a child SOCIAL HISTORY Social History Tobacco Use Smoking status: Former Years: 10.00 Types: Cigars, Cigarettes Quit date: 12/21/1990 Years since quittin.5 Smokeless tobacco: Never Vaping Use Vaping Use: Never used Substance Use Topics Alcohol use: Yes Comment: very little Drug use: Never FAMILY HISTORY Problem Relation Age of Onset Cancer Mother BOWEL Heart Father Hyperlipidemia Father Diabetes Father Hypertension Father Colon Cancer No Family History ALLERGIES: ALLERGIES Allergen Reactions Doxycycline Intolerance Rash, diarrhea Penicillin Hives Penicillin V Potass* Other: See Comments MEDICATIONS: evolocumab (REPATHA SURECLICK) 140 mg/mL pen injector^Inject 140 mg subcutaneously every 2 weeks.^Disp: 4 Each^Rfl: 5 apixaban (ELIQUIS) 2.5 mg tab(s)^Take 1 tablet by mouth twice daily.^Disp: 60 tablet^Rfl: 4 zolpidem (AMBIEN) 5 mg tablet^Take 1 tablet by mouth at bedtime as needed for up to 90 days.^Disp: 30 tablet^Rfl: 2 hydroxyurea (HYDREA) 500 mg capsule^Take 2 capsules by mouth once daily. 2 tablets once daily^Disp:60 capsule^Rfl: 2 albuterol HFA (PROVENTIL HFA, VENTOLIN HFA) 90 mcg/actuation inhaler^INHALE 1 TO 2 PUFFS BY MOUTH EVERY 6 HOURS NEEDED FOR WHEEZING^Disp: 9 g^Rfl: 0 magnesium oxide (MAG-OX) 400 mg (241.3 mg magnesium) tablet^Take 0.5 tablets by mouth once daily. 0.5 tablet^Disp: 90 tablet^Rfl: 3 metoprolol tartrate, short acting, (LOPRESSOR) 50 mg tablet^Take 1 tablet by mouth twice daily^Disp: 180 tablet^Rfl: 3 CPAP^^Disp: ^Rfl: valACYclovir (VALTREX) 1 gram^One po bid for 3 days as needed for cold sores^Disp: 30 tablet^Rfl: 11 omeprazole (PRILOSEC) 40 mg capsule^Take 1 capsule by mouth once daily.^Disp: 90 capsule^Rfl: 3 BABY ASPIRIN ORAL^Take 81 mg by mouth once daily.^Disp: ^Rfl: calcitriol (ROCALTROL) 0.25 mcg capsule^Take 0.25 mcg by mouth once daily.^Disp: ^Rfl: ergocalciferol 50,000 unit capsule (VITAMIN D2, DRISDOL)^once every month. ^Disp: ^Rfl: calcium carbonate (CALCIUM ANTACID) 500 mg chew^One po bid prn gastritis^Disp: 60 tablet^Rfl: 5 predniSONE (DELTASONE) 20 mg tablet^Take 1 tablet by mouth twice daily.^Disp: 14 tablet^Rfl: 0 (Patient not taking: Reported on 07/15/2022) REVIEW OF SYSTEMS: GENERAL: Negative for: Weight loss or gain, Fever or Chills, Weakness and Sleep difficulties and Fatigue. HEENT: Negative for: Headache, Impaired Vision, Glasses, Hearing Impairment, Ringing in Ears, Nosebleeds, Poor dental care, Bleeding Gums, Dentures NECK: Negative for: Swelling, Pain, Stiffness RESPIRATORY: Positive for cough, wheezing and shortness of breath CARDIOVASCULAR: As noted in history of present illness GASTROINTESTINAL: Positive for GI bleed and chronic esophagitis MUSCULOSKELETAL: Positive for left hip pain NEUROLOGIC/PSYCHIATRIC: Negative for: Weakness, Paralysis, Numbness, Tingling, Tremor, Nervousness,Depressed mood, Memory loss SKIN: Negative for: Rashes, Itching HEMATOLOGICAL/LYMPHATIC: Positive for CLL and DVT on hydroxyurea and Eliquis ENDOCRINE: Negative for: Heat or cold intolerance, Excessive sweating, Frequent urination, Frequentthirst I have confirmed and edited as necessary, the PFSH and ROS obtained by me during the previous visit. PHYSICAL EXAMINATION: BP 148/74 (BP Site: Right Arm, BP Position: Sitting, BP Cuff Size: Regular Adult) Pulse 118 Resp 18 Ht 5' 10 (1.778 m) Wt 200 lb (90.7 kg) SpO2 97% BMI 28.70 kg/m General: Well appearing, in no acute distress. Skin: No clubbing, no cyanosis. Eyes: No conjunctival pallor or scleral icterus Oropharynx: Moist mucous membrane Neck: No jugular venous distention, no carotid bruits, carotids have a normal upstroke, no palpablethyromegaly. Lungs: Fair air entry, no crackles, no wheezing at present Heart: Mildly tachycardic, regular rhythm, PMI not displaced, S1, S2 normal, no S3, no S4, no heaves, no rub and no murmur. Abdomen: Soft, nontender, bowel sounds normal, no palpable organomegaly, no bruits. Extremities: No peripheral edema . Grade 2/4 distal pulses bilaterally. Neuro: Oriented to person, place and time, alert, cooperative, gait coordinated. Physical exam listed above was completed in entirety today and is unchanged from 03/28/22, except where noted. CARDIOVASCULAR MEDICINE TESTING: EKG 05/17/2022: Sinus tachycardia with PACs, 118 bpm, left axis deviation/left anterior fascicular block Cardiac catheterization October/2018-80% mid LAD lesion at bifurcation of diagonal 2, status post PTCA drug-eluting stent to the LAD March/2018-60% mid LAD FFR 0.96 insignificant Stress testing February/2018-EF 52%, small reversible defect inferior apical wall Echocardiogram October/2018-EF 54% Last Lab Drawn: Triglyceride 229 10/25/2018 HDL Cholesterol 27 10/25/2018 LDL Calculated 29 10/25/2018 Cholesterol, Total 102 10/25/2018 Component Latest Ref Rng & Units 06/19/2022 WBC 3.70 - 11.00 k/uL 42.17 (H) RBC 4.20 - 6.00 m/uL 2.97 (L) Hemoglobin 13.0 - 17.0 g/dL 10.6 (L) Hematocrit 39.0 - 51.0 % 33.2 (L) MCV 80.0 - 100.0 fL 111.8 (H) MCH 26.0 - 34.0 pg 35.7 (H) MCHC 30.5 - 36.0 g/dL 31.9 RDW-CV 11.5 - 15.0 % 16.3 (H) Platelet Count 150 - 400 k/uL 503 (H) MPV 9.0 - 12.7 fL 9.1 NRBC /100 WBC 0.0 Absolute nRBC <0.01 k/uL <0.01 Neut% % 9.0 Abs Neut (ANC) 1.45 - 7.50 k/uL 3.80 Lymph% % 89.0 Abs Lymph 1.00 - 4.00 k/uL 37.53 (H) [place]% % 2.0 Abs [place] <0.87 k/uL 0.84 Eosin% % 0.0 Abs Eosin <0.46 k/uL 0.00 Baso% % 0.0 Abs Baso <0.11 k/uL 0.00 Platelet Estimate Increased Red Cell Morph Reviewed: see results of individual morphologies Anisocytosis Present DTYPE Manual Protein, Total 6.3 - 8.0 g/dL 6.7 Albumin 3.9 - 4.9 g/dL 4.7 Calcium 8.5 - 10.2 mg/dL 9.1 Bilirubin, Total 0.2 - 1.3 mg/dL 0.3 Alkaline Phosphatase 38 - 113 U/L 90 AST 14 - 40 U/L 18 ALT 10 - 54 U/L 11 Glucose 74 - 99 mg/dL 102 (H) BUN 9 - 24 mg/dL 23 Creatinine 0.73 - 1.22 mg/dL 1.62 (H) Sodium 136 - 144 mmol/L 138 Potassium 3.7 - 5.1 mmol/L 4.6 Chloride 97 - 105 mmol/L 103 CO2 22 - 30 mmol/L 22 Anion Gap 9 - 18 mmol/L 13 eGFR >=60 mL/min/1.73m 46 (L) Cholesterol, Total (mg/dL) Date Value 07/02/2022 91 04/23/2022 94 08/24/2020 98 03/08/2020 113 HDL Cholesterol (mg/dL) Date Value 07/02/2022 29 04/23/2022 50 08/24/2020 31 03/08/2020 32 LDL Cholesterol (mg/dL) Date Value 07/02/2022 40 04/23/2022 25 08/24/2020 35 03/08/2020 50 Triglyceride (mg/dL) Date Value 07/02/2022 110 04/23/2022 97 08/24/2020 162 03/08/2020 155 IMPRESSION: Mr. David is a 66 year old male with the following cardiac issues PLAN AND RECOMMENDATIONS: 1. NSTEMI (non-ST elevated myocardial infarction) (HCC) - ICD9: 410.70, ICD10: I21.4 (primary diagnosis) Was in October 2018, status post drug-eluting stent to LAD Patient had received 3 mm x 22 mm everolimus eluting [place] chromium stent to his LAD. S/p plavix for 1 year. Continue with the baby aspirin He is currently on low-dose Eliquis for DVT 2. Post PTCA - ICD9: V45.82, ICD10: Z98.61 As mentioned above Status post dual antiplatelet therapy for 1 year, now on aspirin 3. Chronic kidney disease, unspecified CKD stage - ICD9: 585.9, ICD10: N18.9 Followed by renal Creatinine 1.6 4. Mixed hyperlipidemia - ICD9: 272.2, ICD10: E78.2 -Excellent control. He is intolerant to Crestor and Lipitor. He is now on Repatha every 3 weeks as his LDL was 16, now 41. - Continue current medication. 5. Essential hypertension - ICD9: 401.9, ICD10: I10 - Suboptimal control, due to noncompliance - Continue with metoprolol 50 mg twice a day. Asked him to start taking his amlodipine 10 mg a day.We will continue with home blood pressure monitoring and will adjust the medications accordingly. - Recommended regular aerobic exercise. - Recommend home blood pressure monitoring, to bring results in on next visit - Goal of BP <130/80 6. Gastrointestinal hemorrhage associated with intestinal diverticulosis - ICD9: 562.12, ICD10: K57.91 7. CLL (chronic lymphocytic leukemia) (HCC) - ICD9: 204.10, ICD10: C91.10 Followed by Heme/Onc 8. DVT He is currently on low-dose Eliquis, managed by Dr. Ramos Some elements were copied from my note dated 03/28/22 , which have been updated where appropriate, and all reflect current medical decision making from TODAY Sean Mays MD, [facility] documented in this encounterSelect Medical [facility]04-03-2023 Nurse Note* Gayle Ramires MA - 07/15/2022 10:11 AM EDT Patient has no cardiac complaints today. Gayle Ramires CMA documented in this encounterSelect Medical [facility]04-03-2023 Miscellaneous Notes* Addendum Note - Ulises Ramos DO - 07/15/2022 9:35 AM EDTAddended by: ULISES RAMOS DO on: 07/15/2022 09:35 AM Modules accepted: Orders * Telephone Encounter - Ary Santoro RN - 07/11/2022 2:34 PM EDT Repatha directions from today are not typical directions- is usually one injection every 2 weeks, comes in a pack of 2 pens for 1 mos supply documented in this encounterSelect Medical [facility]03-30-2023 Miscellaneous Notes* Telephone Encounter - Thi Pavon Ma - 07/11/2022 10:[address] Gallardo office notified and sent message to her. Items addressed in this encounter: Telephone Encounter Thi Pavon Ma July 11, 2022 10:47 AM 10:47 AM * Telephone Encounter - Darrell Cabezas - 07/11/2022 10:[address] Gallardo and let her know I have to put him back on eliquis for a new dvt. I am checking his hemoglobin in two weeks. documented in this encounterSelect Medical [facility]03-30-2023 History of Present illness Narrative* Ulises Ramos DO - 07/11/2022 10:00 AM EDT Here to follow up. Has new clot in the popliteal vein. Now has pain in right calf and behind knee..has fu call out to Dr Gallardo about the hist GI bleed. 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 ghandi Diverticulitis of intestine with perforation 2004 WITH FISTULA Essential hypertension FHx: colon cancer Mother GERD (gastroesophageal reflux disease) HAS GI - SLEZAK History of chickenpox History of scarlet fever History of spinal fracture 1973 L3-4 Hx of squamous cell carcinoma Hydrocele in adult Hypertriglyceridemia Hypokalemia 03/31/2019 Hypomagnesemia 03/31/2019 Leukocytosis 03/31/2019 Lipoma of back NSTEMI (non-ST elevated myocardial infarction) (HCC) Personal history of skin cancer bcc (r shoulder) 2015, scc (l lateral lower leg) 2018 Renal cancer (HCC) Stage 3 Sleep apnea CPAP PAST SURGICAL HISTORY Procedure Laterality Date BOWEL RESECTION HX 2004 Partial COLONOSCOPY 01/07/2019 hemorrhoids and diverticulosis CYSTOSCOPY 2004 2005 EGD 11/2019 x3 EGD 12/31/2018 Rhodes's, Duodenal erosions. Dr. Enio Degroot. HEMORRHOID SURGERY HX 1999 LAP NEPHRECTOMY Right 2018 DR. 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 6 CUPS/DAY LIVES AT HOME WITH NO PETS NOREEN DAUGHTER = NO GRANDKIDS YET RIDE HORSES Allergies: ALLERGIES Allergen Reactions Doxycycline Intolerance Rash, diarrhea Penicillin Hives Penicillin V Potass* Other: See Comments Medications: levoFLOXacin (LEVAQUIN) 500 mg tablet^Take 1 tablet by mouth once daily for 10 days.^Disp: 10 tablet^Rfl: 0 predniSONE (DELTASONE) 20 mg tablet^Take 1 tablet by mouth twice daily.^Disp: 14 tablet^Rfl: 0 zolpidem (AMBIEN) 5 mg tablet^Take 1 tablet by mouth at bedtime as needed for up to 90 days.^Disp: 30 tablet^Rfl: 2 hydroxyurea (HYDREA) 500 mg capsule^Take 2 capsules by mouth once daily. 2 tablets once daily^Disp:60 capsule^Rfl: 2 albuterol HFA (PROVENTIL HFA, VENTOLIN HFA) 90 mcg/actuation inhaler^INHALE 1 TO 2 PUFFS BY MOUTH EVERY 6 HOURS NEEDED FOR WHEEZING^Disp: 9 g^Rfl: 0 magnesium oxide (MAG-OX) 400 mg (241.3 mg magnesium) tablet^Take 0.5 tablets by mouth once daily. 0.5 tablet^Disp: 90 tablet^Rfl: 3 REPATHA SURECLICK 140 mg/mL pen injector^INJECT 1 PEN SUBCUTANEOUSLY EVERY TWO WEEKS^Disp: 2 mL^Rfl: 11 (Patient taking differently: once every month.) metoprolol tartrate, short acting, (LOPRESSOR) 50 mg tablet^Take 1 tablet by mouth twice daily^Disp: 180 tablet^Rfl: 3 CPAP^^Disp: ^Rfl: valACYclovir (VALTREX) 1 gram^One po bid for 3 days as needed for cold sores^Disp: 30 tablet^Rfl: 11 omeprazole (PRILOSEC) 40 mg capsule^Take 1 capsule by mouth once daily.^Disp: 90 capsule^Rfl: 3 BABY ASPIRIN ORAL^Take 81 mg by mouth once daily.^Disp: ^Rfl: calcitriol (ROCALTROL) 0.25 mcg capsule^Take 0.25 mcg by mouth once daily.^Disp: ^Rfl: ergocalciferol 50,000 unit capsule (VITAMIN D2, DRISDOL)^once every month. ^Disp: ^Rfl: calcium carbonate (CALCIUM ANTACID) 500 mg chew^One po bid prn gastritis^Disp: 60 tablet^Rfl: 5 apixaban (ELIQUIS) 2.5 mg tab(s)^Take 1 tablet by mouth twice daily.^Disp: 60 tablet^Rfl: 4 Problem List: ACTIVE PROBLEM LIST Deng (Acute Kidney Injury) ([facility]) - 01/07/2019 (D priority) Iron Deficiency Anemia Due to Chronic Blood Loss - 02/19/2022 Vitamin D Deficiency - 07/17/2021 Obesity, Class I, Bmi 30-34.9 - 05/28/2021 Acute Blood Loss Anemia - 05/16/2021 Covid-19 Virus Infection - 05/16/2021 Severe Protein-Calorie Malnutrition (Hcc) - 05/09/2021 Severe Anemia - 05/02/2021 Cira (Obstructive Sleep Apnea) - 05/01/2021 Deep Vein Thrombosis (Dvt) of Femoral Vein of Left Lower Extremity ([facility]) - 03/14/2021 Leg Swelling - 03/14/2021 Leukocytosis - 03/31/2019 Essential Thrombocythemia (Hcc) - 03/31/2019 Ckd (Chronic Kidney Disease) Stage 3, Gfr 30-59 Ml/Min ([facility]) - 03/31/2019 Hypertriglyceridemia 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 S/P Drug Eluting Coronary Stent Placement - 11/25/2018 Stage 2 Chronic Kidney Disease - 11/10/2018 Nstemi (Non-St Elevated Myocardial Infarction) ([facility]) - 10/24/2018 Bph (Benign Prostatic Hyperplasia) - 10/05/2018 History of Right Nephrectomy - 10/05/2018 Nocturia - 03/19/2018 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 Cll (Chronic Lymphocytic Leukemia) ([facility]) - 06/13/2017 Iron Deficiency Anemia - 06/13/2017 Renal Cancer, Right ([facility]) - 04/29/2017 Essential Hypertension Multiple Lipomas Gerd (Gastroesophageal Reflux Disease) Comment: HAS GI - TRACE H/O Resection of Large Bowel - 04/14/2004 Comment: DR. SUAREZ Review of Systems Constitutional: Negative. Respiratory: Negative. Cardiovascular: Negative. Musculoskeletal: Positive for arthralgias. Physical Exam Cardiovascular: Rate and Rhythm: Regular rhythm. Heart sounds: Normal heart sounds. Musculoskeletal: Right lower leg: Edema present. Left lower leg: Edema present. Neurological: Mental Status: He is alert. BP 163/93 Pulse 89 Temp 36.6 C (97.8 F) Ht 177.8 cm (5' 10 ) Wt 92.9 kg (204 lb 14.4 oz) SpO2 97% BMI 29.40 kg/m ASSESSMENT/PLAN:ASSESSMENT/PLAN: 1. Iron deficiency anemia due to chronic blood loss - ICD9: 280.0, ICD10: D50.0 (primary diagnosis) - CBC + DIFF - US DVT LOWER RIGHT - US EXTREMITY MASS/FLUID COLLECTION LEFT 2. Acute deep vein thrombosis (DVT) of popliteal vein of left lower extremity ([facility]) - ICD9: 453.41,ICD10: I82.432 Clot extending, rough spot to be in as hx gi bleed. Will start low dos and get labs in 2 weeks. Fu w specialists - CBC + DIFF - US DVT LOWER RIGHT - US EXTREMITY MASS/FLUID COLLECTION LEFT 3. Right calf pain - ICD9: 729.5, ICD10: M79.661 - US DVT LOWER RIGHT - US EXTREMITY MASS/FLUID COLLECTION LEFT Ulises Ramos DO - REPATHA SURECLICK 140 MG/ML SUBCUTANEOUS PEN INJECTOR Ulises Ramos DO documented in this encounter[facility]23 Miscellaneous Notes* Telephone Encounter - Yuko Lauren RN - 07/04/2022 11:13 AM EDT Spoke with pt. Notified of test results and Dr Mays's recommendations. Pt voices understanding. Yuko Lauren RN * Telephone Encounter - Sean Mays MD - 07/04/2022 11:02 AM EDT Excellent lipid panel with LDL of 40. Continue with Repatha. Thanks documented in this encounterSelect [facility]03-23-2023 Miscellaneous Notes* Telephone Encounter - Tereza Sunshine - 07/04/2022 9:44 AM EDT 07/04/22 Patient calling to talk to Dr Gallardo if she has communicated with with him PCP to find out what the next step is going to be. Would like a call back, Tereza documented in this encounterSelect [facility]23 History of Present illness Narrative* Ulises Ramos DO - 07/02/2022 10:00 AM EDT Here for productive sputum for months and just not improving. Using inhalers. 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 glover Diverticulitis of intestine with perforation 2004 WITH FISTULA Essential hypertension FHx: colon cancer Mother GERD (gastroesophageal reflux disease) HAS GI - SLEZAK History of chickenpox History of scarlet fever History of spinal fracture 1973 L3-4 Hx of squamous cell carcinoma Hydrocele in adult Hypertriglyceridemia Hypokalemia 03/31/2019 Hypomagnesemia 03/31/2019 Leukocytosis 03/31/2019 Lipoma of back NSTEMI (non-ST elevated myocardial infarction) (HCC) Personal history of skin cancer bcc (r shoulder) 2015, scc (l lateral lower leg) 2018 Renal cancer (HCC) Stage 3 Sleep apnea CPAP PAST SURGICAL HISTORY Procedure Laterality Date BOWEL RESECTION HX 2005 Partial COLONOSCOPY 01/07/2019 hemorrhoids and diverticulosis CYSTOSCOPY 2004 2004 EGD 11/2019 x3 EGD 12/31/2018 Rhodes's, Duodenal erosions. Dr. nEio Degroot. HEMORRHOID SURGERY HX 1999 LAP NEPHRECTOMY Right 2018 DR. 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 2 tablets once daily^Disp:60 capsule^Rfl: 2 albuterol HFA (PROVENTIL HFA, VENTOLIN HFA) 90 mcg/actuation inhaler^INHALE 1 TO 2 PUFFS BY MOUTH EVERY 6 HOURS NEEDED FOR WHEEZING^Disp: 9 g^Rfl: 0 magnesium oxide (MAG-OX) 400 mg (241.3 mg magnesium) tablet^Take 0.5 tablets by mouth once daily. 0.5 tablet^Disp: 90 tablet^Rfl: 3 REPATHA SURECLICK 140 mg/mL pen injector^INJECT 1 PEN SUBCUTANEOUSLY EVERY TWO WEEKS^Disp: 2 mL^Rfl: 11 (Patient taking differently: once every month.) metoprolol tartrate, short acting, (LOPRESSOR) 50 mg tablet^Take 1 tablet by mouth twice daily^Disp: 180 tablet^Rfl: 3 CPAP^^Disp: ^Rfl: valACYclovir (VALTREX) 1 gram^One po bid for 3 days as needed for cold sores^Disp: 30 tablet^Rfl: 11 omeprazole (PRILOSEC) 40 mg capsule^Take 1 capsule by mouth once daily.^Disp: 90 capsule^Rfl: 3 BABY ASPIRIN ORAL^Take 81 mg by mouth once daily.^Disp: ^Rfl: ergocalciferol 50,000 unit capsule (VITAMIN D2, DRISDOL)^once every month. ^Disp: ^Rfl: calcium carbonate (CALCIUM ANTACID) 500 mg chew^One po bid prn gastritis^Disp: 60 tablet^Rfl: 5 levoFLOXacin (LEVAQUIN) 500 mg tablet^Take 1 tablet by mouth once daily for 10 days.^Disp: 10 tablet^Rfl: 0 predniSONE (DELTASONE) 20 mg tablet^Take 1 tablet by mouth twice daily.^Disp: 14 tablet^Rfl: 0 calcitriol (ROCALTROL) 0.25 mcg capsule^Take 0.25 mcg by mouth once daily.^Disp: ^Rfl: Problem List: ACTIVE PROBLEM LIST Deng (Acute Kidney Injury) ([facility]) - 01/07/2019 (D priority) Iron Deficiency Anemia Due to Chronic Blood Loss - 02/19/2022 Vitamin D Deficiency - 07/17/2021 Obesity, Class I, Bmi 30-34.9 - 05/28/2021 Acute Blood Loss Anemia - 05/16/2021 Covid-19 Virus Infection - 05/16/2021 Severe Protein-Calorie Malnutrition (Hcc) - 05/09/2021 Severe Anemia - 05/02/2021 Cira (Obstructive Sleep Apnea) - 05/01/2021 Deep Vein Thrombosis (Dvt) of Femoral Vein of Left Lower Extremity ([facility]) - 03/14/2021 Leg Swelling - 03/14/2021 Leukocytosis - 03/31/2019 Essential Thrombocythemia ([facility]) - 03/31/2019 Ckd (Chronic Kidney Disease) Stage 3, Gfr 30-59 Ml/Min ([facility]) - 03/31/2019 Hypertriglyceridemia 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 S/P Drug Eluting Coronary Stent Placement - 11/25/2018 Stage 2 Chronic Kidney Disease - 11/10/2018 Nstemi (Non-St Elevated Myocardial Infarction) ([facility]) - 10/24/2018 Bph (Benign Prostatic Hyperplasia) - 10/05/2018 History of Right Nephrectomy - 10/05/2018 Nocturia - 03/19/2018 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 Cll (Chronic Lymphocytic Leukemia) ([facility]) - 06/13/2017 Iron Deficiency Anemia - 06/13/2017 Renal Cancer, Right ([facility]) - 04/29/2017 Essential Hypertension Multiple Lipomas Gerd (Gastroesophageal Reflux Disease) Comment: HAS GI - TRACE H/O Resection of Large Bowel - 04/14/2004 Comment: DR. SUAREZ Review of Systems Constitutional: Negative. Respiratory: Positive for cough and shortness of breath. Cardiovascular: Negative. Gastrointestinal: Negative. Physical Exam Cardiovascular: Rate and Rhythm: Normal rate and regular rhythm. Pulses: Normal pulses. Pulmonary: Effort: Pulmonary effort is normal. Breath sounds: Normal breath sounds. Neurological: Mental Status: He is alert. BP 144/90 (BP Site: Left Arm, BP Position: Sitting, BP Cuff Size: Large Adult) Pulse 105 Temp 36.4 C (97.5 F) (Left Tympanic) Wt 92.3 kg (203 lb 8 oz) SpO2 93% BMI 29.20 kg/m ASSESSMENT/PLAN: 1. Chronic obstructive pulmonary disease with acute exacerbation (HCC) - ICD9: 491.21, ICD10: J44.1(primary diagnosis) - SPIROMETRY - BASELINE AND POST DILATOR - [id number] BL - COVID WITH FLUA+B, ROUTINE - RSV B/O 2. Deep vein thrombosis (DVT) of left lower extremity, unspecified chronicity, unspecified vein (HCC) - ICD9: 453.40, ICD10: I82.402 - [id number] BL - US DVT LOWER LT 3. Localized swelling, mass and lump, left upper limb - ICD9: 782.2, ICD10: R22.32 - US DVT LOWER LT 4. History of colonic polyps - ICD9: V12.72, ICD10: Z86.010 - COLONOSCOPY SCREENING Ulises Ramos DO documented in this encounterSelect [facility]03-20-2023 Miscellaneous Notes* Telephone Encounter - Essie Rivera LPN - 07/01/2022 11:29 AM EDT Pharmacy [facility] message requesting the following refill Refill(s) Requested: Requested Prescriptions Pending Prescriptions Disp Refills zolpidem (AMBIEN) 5 mg tablet [Pharmacy Med Name: Zolpidem Tartrate 5 MG Oral Tablet] 30 tablet 0 Sig: TAKE 1 TABLET BY MOUTH ONCE DAILY AT BEDTIME NEEDED FOR UP TO 30 DAYS ALLERGIES Allergen Reactions Doxycycline Intolerance Rash, diarrhea Penicillin Hives Penicillin V Potass* Other: See Comments (home) [phone] (cell) Last Office Visit Date: 06/21/2022 Last [facility] Visit: Visit date not found Future Appointment: 09/17/2022 The patients preferred pharmacy has been captured for this encounter? yes Request is for script(s) to be escript to pharmacy. Essie Rivera LPN documented in this encounterSelect [facility]03-17-2023 Miscellaneous Notes* Telephone Encounter - Alexia Mariscal - 06/28/2022 12:07 PM EDT Pt called in advised he is sick and wanted to schedule an appointment with the first available .advised of first available 07/04/2022 @ 6:45 am with Khushbu Pt stated He dose not like him and hung up before Hearing any other Option for scheduling or transfer to nurse Pt only wants to see Dr's Pt does not want a TRANSPLANT CASE MANAGER or PA Please advise, Notify Pt documented in this encounterSelect [facility]03-15-2023 History of Present illness Narrative* Sia Hodge, PT - 06/26/2022 7:47 PM EDT Episode Visit Count: 13 Therapist That Will Accept/Oversee The Plan Of Care: Zachary Hodge Start of Care Date: 03/18/22 Onset Date: 02/19/22 Plan of Care Certification Date: 05/31/22 Next Certification Due Date: 07/30/22 Patient Identified by Name and Date of : Yes REHABILITATION AND SPORTS THERAPY PHYSICAL THERAPY DISCONTINUANCE OF CARE PLAN OF CARE UPDATE: Assessment: Adina David is discontinued from Physical Therapy services due to maximal benefit.. Patient was seen for 13 visits from Start of Care Date: 03/18/22 to 06/26/2022 and treatment included: Therapeutic exercise. Goals for Episode of Care: created on 03/18/22 through 05/17/22-extended through 07/30/22 [place] in home exercise program.-Progressing Patient will decrease pain rating by 2 points to meet minimal clinical important difference for numeric pain rating scale.-Not Met Patient will demonstrate increase in bilateral hip extensors strength to 4/5 in order to improve function for moderate to heavy functional tasks.-Progressing Patient will increase flexibility of bilateral hamstrings to WNL to improve ability to maintain proper posture, improve mechanics, and decrease pain.-Porgressing Patient will Improve Timed Up and Go to <10 seconds to demonstrate decreased risk of falling.-Progressing Patient will improve 5 time sit to stand to demonstrate improvement in functional lower extremity strength.-Not Met Patient will complete >12 reps on 30 second chair stand test to decrease risk of falls.-Not Met Improve tandem stance on 4 stage balance test to = or >10 seconds to decrease risk for falls. -MET Patient Goals: improve endurance and strength SUBJECTIVE: Patient Reason for Visit: General Deconditioning. States left shoulder has been bothering him, nothing new has been going on for years. Pain: Pain Pain Location: Calf - Left PROMIS Scales Higher is Better 05/31/2022 Phys Func - Score 34 (moderate dysfunction) Phys Func - Percentile 5 % Self-Eff Symptom - Score 35 (Low) Self-Eff Symptom - Percentile 7 % T-scores: mean of general population = 50. 5 points is clinically meaningfully difference Percentiles provide an indication of how the patient's score ranks in relation to the general population. Higher percentile rankings indicate better function/quality of life. 50th percentile is the average of the general population and indicates half of respondents had a worse score. OBJECTIVE MEASURES WITH LEVEL OF FUNCTION: No objective measures taken this date. See response to exercise within assessment and flowsheet. TREATMENT: Therapeutic Exercise: 1: recumbent bike x 5 min 2: incline board 3x30 3: leg press 65# 3x15 4: MH abd. 1.5pl 3x10 5: calf raises 10x2 6: HS curls 40# 3x10 7: TRX squats 3x10 8: PKF 3x30 11: standing HS stretch 3x30 12: multifidus reach 2pl 5x10 Skilled Intervention: Patient was educated in proper exercise technique and purpose for exercises. Skilled judgment was provided in selection of appropriate interventions. Correct performance of therapeutic exercises was facilitated with verbal, visual, and tactile cuing. Billing Therapeutic Exercise Treatment Minutes: 40 Total Treatment Time Minutes (timed/untimed): 45 Sia Hodge PT documented in this encounterSelect Medical [facility]03-14-2023 History of Present illness Narrative* Wilton Palma RN - 06/25/2022 9:40 AM EDT [facility] [employer] OUTREACH Provider Action/FYI: CDM: CKD 2nd Call, left a message to verify symptom status, instructed to call PCP with any changes in condition or needs. Contact made with patient: No - Left message Heldiogo my name is Wilton Palma RN your Loading Shovel Oiler [facility] I am callingtoday for your bi-weekly check in. I am sorry I missed your call. I will reach out to you again tomorrow. (if the third call I will reach out to you again next week) Enter next patient outreach date for the following business day using the Track Pt Outreach. End outreach. Wilton Palma RN June 25, 2022 9:40 AM * Wilton Palma RN - 06/24/2022 9:20 AM EDT SRINI PERERA TELEPH[employer]IC OUTREACH Provider Action/FYI: CDM: CKD Left a message to verify symptom status, instructed to call PCP with any changes in condition or needs. Contact made with patient: No - Left message Hello my name is Wilton Palma RN your Loading Shovel Oiler [facility] I am callingtoday for your bi-weekly check in. I am sorry I missed your call. I will reach out to you again tomorrow. (if the third call I will reach out to you again next week) Enter next patient outreach date for the following day using the Track Pt Outreach. End outreach. Wilton Palma RN June 24, 2022 9:20 AM documented in this encounterSelect [facility]03-13-2023 History of Present illness Narrative* Kaleigh Mueller PTA - 06/24/2022 10:56 AM EDT Episode Visit Count: 12 Therapist That Will Accept/Oversee The Plan Of Care: Zachary Hodge Start of Care Date: 03/18/22 Onset Date: 02/19/22 Plan of Care Certification Date: 05/31/22 Next Certification Due Date: 07/30/22 Patient Identified by Name and Date of : Yes REHABILITATION AND SPORTS THERAPY PHYSICAL THERAPY TREATMENT NOTE ASSESSMENT: Adina David tolerated the session with no issues. He demonstrated improvements in overallstrength no complaints of calf pain todayv. The patient will continue to benefit from ongoing skilled physical therapy to progress toward set goals. pLAN FOR NEXT VISIT: general LE strengthening, balance and endurance SUBJECTIVE: Calf/ rene a lot better. Thinks his calf pain was 'rene splints Pain: Pain Pain Level: 2 Pain Location: Calf - Left OBJECTIVE MEASURES WITH LEVEL OF FUNCTION: TREATMENT: Therapeutic Exercise: 1: recumbent bike x 5 min 2: incline board 3x30 3: leg press 65# 3x15 4: MH abd. 1.5pl 3x10 5: calf raises 10x2 6: HS curls 40# 3x10 7: TRX squats 3x10 11: standing HS stretch 3x30 12: multifidus reach 2pl 5x10 Skilled Intervention: Skilled judgment was provided in selection of appropriate interventions. Billing Therapeutic Exercise Treatment Minutes: 45 Total Treatment Time Minutes (timed/untimed): 45 Kaleigh Mueller PTA documented in this encounterSelect [facility]03-10-2023 History of Present illness Narrative* Halle Dale MD - 06/21/2022 10:20 AM EST PROGRESS NOTE 06/21/2022 Chief Complaint: Mr. Adina David is here to follow up his hematological conditions (CLL, MPN, VTE, bleeding) Interval History: He is on hydrea 500 mg twice daily. Reports doing well overall. He follows GI at main campus. No further GIB. Supposed to start octreotide but insurance declined. Will need double balloon scope if bleed again. Review of Systems Constitutional: Positive for fatigue. Negative for activity change, appetite change, chills, diaphoresis, fever and unexpected weight change. HENT: Negative for mouth sores, sore throat, trouble swallowing and voice change. Eyes: Negative for photophobia and visual disturbance. Respiratory: Negative for cough, chest tightness, shortness of breath, wheezing and stridor. Cardiovascular: Negative for chest pain, palpitations and leg swelling. Gastrointestinal: Negative for abdominal distention, abdominal pain, anal bleeding, blood in stool,constipation, diarrhea, nausea, rectal pain and vomiting. Endocrine: Negative for cold intolerance and heat intolerance. Genitourinary: Negative for decreased urine volume, difficulty urinating, dysuria, enuresis, flank pain, frequency, genital sores, hematuria and urgency. Nocturia and incontinence Musculoskeletal: Negative for arthralgias, back pain, gait problem, joint swelling, myalgias, neck pain and neck stiffness. Skin: Negative for color change, pallor, rash and wound. Neurological: Positive for numbness. Negative for dizziness, tremors, seizures, syncope, facial asymmetry, speech difficulty, light-headedness and headaches. Hematological: Negative for adenopathy. Does not bruise/bleed easily. Psychiatric/Behavioral: Negative for sleep disturbance. 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 glover Diverticulitis of intestine with perforation 2004 WITH FISTULA Essential hypertension FHx: colon cancer Mother GERD (gastroesophageal reflux disease) HAS GI - SLEZAK History of chickenpox History of scarlet fever History of spinal fracture 1973 L3-4 Hx of squamous cell carcinoma Hydrocele in adult Hypertriglyceridemia Hypokalemia 03/31/2019 Hypomagnesemia 03/31/2019 Leukocytosis 03/31/2019 Lipoma of back NSTEMI (non-ST elevated myocardial infarction) (HCC) Personal history of skin cancer bcc (r shoulder) 2015, scc (l lateral lower leg) 2018 Renal cancer (HCC) Stage 3 Sleep apnea CPAP ALLERGIES Allergen Reactions Doxycycline Intolerance Rash, diarrhea Penicillin Hives Penicillin V Potass* Other: See Comments Current Outpatient Medications Medication Sig Dispense Refill albuterol HFA (PROVENTIL HFA, VENTOLIN HFA) 90 mcg/actuation inhaler INHALE 1 TO 2 PUFFS BY MOUTH EVERY 6 HOURS NEEDED FOR WHEEZING 9 g 0 zolpidem (AMBIEN) 5 mg tablet Take 1 tablet by mouth at bedtime as needed for up to 30 days. 30 tablet 0 magnesium oxide (MAG-OX) 400 mg (241.3 mg magnesium) tablet Take 0.5 tablets by mouth once daily. 0.5 tablet 90 tablet 3 REPATHA SURECLICK 140 mg/mL pen injector INJECT 1 PEN SUBCUTANEOUSLY EVERY TWO WEEKS (Patient taking differently: once every month.) 2 mL 11 hydroxyurea (HYDREA) 500 mg capsule Take 1 capsule by mouth twice daily. (Patient taking differently: Take 1,000 mg by mouth once daily. 2 tablets once daily) 60 capsule 2 metoprolol tartrate, short acting, (LOPRESSOR) 50 mg tablet Take 1 tablet by mouth twice daily 180 tablet 3 CPAP valACYclovir (VALTREX) 1 gram One po bid for 3 days as needed for cold sores 30 tablet 11 omeprazole (PRILOSEC) 40 mg capsule Take 1 capsule by mouth once daily. 90 capsule 3 BABY ASPIRIN ORAL Take 81 mg by mouth once daily. calcitriol (ROCALTROL) 0.25 mcg capsule Take 0.25 mcg by mouth once daily. ergocalciferol 50,000 unit capsule (VITAMIN D2, DRISDOL) once every month. calcium carbonate (CALCIUM ANTACID) 500 mg chew One po bid prn gastritis 60 tablet 5 predniSONE (DELTASONE) 20 mg tablet Take 1 tablet by mouth twice daily. (Patient not taking: No sigreported) 14 tablet 0 Current Facility-Administered Medications Medication Dose Route Frequency Provider Last Rate Last Admin octreotide LAR 20 mg depot (monthly) injection (SandoSTATIN LAR) 20 mg INTRAMUSCULAR q 1 MONTH Hortencia Gallardo MD Social History: in 11/2020 from breast cancer. He lives by himself. Daughter is around, 2 grandchildren. Retired. Former smoker, quit in 1990. Family History: Mother of colon cancer at age 85. No siblings, 1 daughter, w/o malignancy. I have confirmed and edited as necessary, the PFSH and ROS obtained by myself BP 174/82 Pulse 87 Temp (Src) 97.9 (Temporal) Wt 208 lb (94.3kg) SpO2 96% Physical Exam Constitutional: General: He is not in acute distress. Appearance: Normal appearance. He is not ill-appearing, toxic-appearing or diaphoretic. HENT: Head: Normocephalic and atraumatic. Mouth/Throat: Mouth: Mucous membranes are moist. Eyes: General: No scleral icterus. Conjunctiva/sclera: Conjunctivae normal. Cardiovascular: Rate and Rhythm: Normal rate and regular rhythm. Pulses: Normal pulses. Heart sounds: No murmur heard. No friction rub. No gallop. Pulmonary: Effort: Pulmonary effort is normal. No respiratory distress. Breath sounds: No stridor. No wheezing, rhonchi or rales. Abdominal: General: Abdomen is flat. Bowel sounds are normal. There is no distension. Palpations: Abdomen is soft. There is no mass. Tenderness: There is no abdominal tenderness. There is no guarding or rebound. Musculoskeletal: General: No swelling or deformity. Normal range of motion. Cervical back: Normal range of motion and neck supple. Right lower leg: No edema. Left lower leg: No edema. Lymphadenopathy: Cervical: No cervical adenopathy. Skin: General: Skin is warm and dry. Coloration: Skin is not jaundiced. Findings: No bruising or rash. Neurological: General: No focal deficit present. Mental Status: He is alert and oriented to person, place, and time. Psychiatric: Mood and Affect: Mood normal. Behavior: Behavior normal. Labs: Component Latest Ref Rng & Units 06/19/2022 WBC 3.70 - 11.00 k/uL 42.17 (H) RBC 4.20 - 6.00 m/uL 2.97 (L) HGB 13.7 - 17.5 g/dL Hematocrit 39.0 - 51.0 % 33.2 (L) MCV 80.0 - 100.0 fL 111.8 (H) MCH 26.0 - 34.0 pg 35.7 (H) MCHC 30.5 - 36.0 g/dL 31.9 RDW 11.6 - 14.4 % RDW-SD 36.1 - 45.8 fl Platelet Count 150 - 400 k/uL 503 (H) MPV 9.0 - 12.7 fL 9.1 Nucleated RBC % 0.0 - 0.2 % Nucleated RBC Absolute 0.00 - 0.01 thou/cmm Seg Neutrophil % Lymphocyte % Monocyte % Eosinophil % Basophil % Atypical Lymph % Metamyelocytes % Myelocyte % Abs. Neut(Anc) 1.78 - 5.38 thou/cmm Immat Grans Abs Calc 0.00 - 0.05 thou/cmm Abs. Lymph 0.84 - 2.85 thou/cmm Abs. [place] 0.30 - 0.82 thou/cmm Abs. Eosin 0.04 - 0.54 thou/cmm Abs. Baso 0.01 - 0.08 thou/cmm Smudge Cells RBC Morphology Anisocytosis Present Hypochromasia Polychromasia Other Immatures % Blast and Bl # thou/cmm Macro-Ovalocyte Spherocytosis CBC Interp. Pathologist Hemoglobin 13.0 - 17.0 g/dL 10.6 (L) RDW-CV 11.5 - 15.0 % 16.3 (H) NRBC /100 WBC 0.0 Absolute nRBC <0.01 k/uL <0.01 Neut% % 9.0 Abs Neut (ANC) 1.45 - 7.50 k/uL 3.80 Lymph% % 89.0 Abs Lymph 1.00 - 4.00 k/uL 37.53 (H) [place]% % 2.0 Abs [place] <0.87 k/uL 0.84 Eosin% % 0.0 Abs Eosin <0.46 k/uL 0.00 Baso% % 0.0 Abs Baso <0.11 k/uL 0.00 Component Latest Ref Rng & Units 06/19/2022 Protein, Total 6.3 - 8.0 g/dL 6.7 Albumin 3.9 - 4.9 g/dL 4.7 Calcium 8.5 - 10.2 mg/dL 9.1 Bilirubin, Total 0.2 - 1.3 mg/dL 0.3 Alkaline Phosphatase 38 - 113 U/L 90 AST 14 - 40 U/L 18 ALT 10 - 54 U/L 11 Glucose 74 - 99 mg/dL 102 (H) BUN 9 - 24 mg/dL 23 Creatinine 0.73 - 1.22 mg/dL 1.62 (H) Sodium 136 - 144 mmol/L 138 Potassium 3.7 - 5.1 mmol/L 4.6 Chloride 97 - 105 mmol/L 103 CO2 22 - 30 mmol/L 22 Anion Gap 9 - 18 mmol/L 13 eGFR >=60 mL/min/1.73m 46 (L) Imaging: US kidney/bladder on 02/13/2022 Unremarkable left kidney. Right nephrectomy. CT A/P w/ IV contrast on 01/19/2022 ([facility]) Right inguinal hernia containing loops of bowel. Early small bowel obstruction is suspected, with source of obstruction at the right inguinal hernia. Follow up is recommended. Numerous borderline to slightly enlarged mesenteric lymph nodes with the right mid to lower abdomen. Follow up is recommended. Mild hydronephrosis of the left kidney with moderate to large amount of perinephritic fat stranding. There is hydroureter on the left with question caliber change of the ureter near the level of the iliac vessels versus obstruction at the level of the UVJ. No obvious renal stone demonstrated. Follow up urologic consultation suggested. CT C/A/P w/o contrast 01/23/2021 1. Enlarged lymph node paraesophageal region of the posterior mediastinum stable since prior exam. Of unclear etiology. Metastatic disease not excluded. 2. Increase in size of ovoid nodule along left hemidiaphragm. Metastatic disease is a consideration. This nodule would be difficult to percutaneously biopsy given its size and location. Follow-up is recommended. 3. New ovoid density posteriorly at the left lung base. It may represent new very small pleural effusion. Recommend attention to this on follow-up scans. 4. Extensive lymph node enlargement throughout the periportal region and throughout the mesenteric fat in the right abdomen. Not significantly changed since prior CT scan 07/19/2020. Stable pelvic and inguinal lymph node prominence. 5. Status post open reduction internal fixation proximal left femur fracture. Fracture line still visible. RLE venous duplex on 10/18/2021 Interval improvement in left lower extremity DVT, now with long segment eccentric non-occlusive thrombus involving femoral and popliteal veins. Negative study for calf DVT in the left lower extremity. Negative study for superficial thrombophlebitis in the imaged segments of the left lower extremity. Pathology: none Assessment and Plan: Mr. Adina David is a pleasant 66 yo M with multiple comorbidity including clear cell RCC, CLL, MPN, DVT, CAD, CKD III and chronic anemia, who presents to establish care. 1. Chronic macrocytic anemia - Hb baseline 8-10. Causes of chronic anemia is multifactorial, including CKDIII, GIB, iron deficiency, CLL, MPN on hydrea - following major GIB, he received multiple units of pRBC and 1 dose of 1000 mg ferric derisomaltose in 05/2021. Took ferrous sulfate BID till end of 08/2021 when self-discontinued. - Current Hb 10.6, WBC 42.17, platelet 503 - continue hydrea 500 mg twice daily - macrocytosis is likely due to hydrea. Renal function stable. - continue monthly count check. RTC in 3 months. 2. ccRCC - diagnosed in 05/2017 - s/p right radical nephrectomy, clear cell RCC, WHO/ISUP grade 2, with renal vein invasion and renal vein thrombosis, 9 cm in size, pT3a pNx - no adjuvant treatment - CT A/P from 01/19/2022 and US kidney/bladder from 02/13/2022 were reviewed showing BARNEY. - CKDIII, renal function stable, Cr 1.51, GFR 50 3. CLL - diagnosed in 04/2017, peripheral blood flow showed a CD5-positive B-cell lymphoproliferative disorder. The immunophenotype is consistent with CLL/SLL - CT C/A/P showed mediastinal and abdominal adenopathy, stable compared scan in 07/2020, likely fromCLL/SLL process. - Su stage I. No indication to initiate treatment 4. Essential thrombocythemia - platelet count over 1000K, without clear secondary causes - CALR no variant detected; JAK2 V617F not detected; BCR-ABL not detected. MPL-a sequence change ofc.1502T>C in exon 10 was detected at approximately 18% allelic proportion; a sequence change of c. 1514G>A ([id number]) in exon 10 was detected at approximately 16% allelic proportion - he was started on hydrea since 04/2020, 500 mg BID - in the setting of major GIB, he had severe thrombocytosis (plt > 1000 k) put him at risk of thrombosis and bleeding due to acquired VWD. - current platelet 503K. Continue hydrea 500 mg twice daily. Continue baby ASA. Off Eliquis. Monthly count check. RTC in 3 months. 5. DVT - 03/14/2021, DVT of indeterminate age in the common femoral vein throughout - possibly provoked, as he had left femur subtrochanteric fracture s/p internal fixation with persistent swelling postop - on Eliquis 5 mg BID since 03/2021. Dose reduce to 2.5 mg BID in 05/2021 due to renal dysfunction and GIB - d/c Eliquis in 09/2021. Doing well 6. BPH - LUTS from BPH. - PSA 8.67. - prior prostate biopsy showed no evidence of cancer. - Being followed and managed by urology 7. GIB - admitted to [facility] in 04/2021 with Hb 4.8, transfused 7 units pRBC He underwent EGD and colonoscopy were normal. Capsule endoscopy reviewed bleeding lesions. Push enteroscopy done April 2021 which showed bleeding AVMs - Currently no active bleeding. He follows GI. Octreotide was denied by insurance. If bleed again will need double balloon scope. - Avoid further iron supplement due to his MPN. Mild iron deficiency is expected and allowed. RTC in 3 months. Some elements copied from my notes 03/22/2022, including the physical exam completed in entirety today, have been updated where appropriate. All reflect current medical decision making from today, 06/21/2022 Medical Decision Making: Problems: Moderate: 1+ chronic illnesses with change Data: Unique test result(s) reviewed: 3+ Unique test(s) ordered: 3+ Risk: Moderate: Moderate risk from testing/treatment and Drug management Medical Decision Making Level: 4 - Moderate documented [facility] History of Present illness Narrative* Sia Hodge PT - 06/19/2022 2:52 PM EST Episode Visit Count: 11 Therapist That Will Accept/Oversee The Plan Of Care: Zachary Hodge Start of Care Date: 03/18/22 Onset Date: 02/19/22 Plan of Care Certification Date: 05/31/22 Next Certification Due Date: 07/30/22 Patient Identified by Name and Date of : Yes REHABILITATION AND SPORTS THERAPY PHYSICAL THERAPY TREATMENT NOTE ASSESSMENT: Adina David tolerated the session with decreased activity tolerance due to left calf pain. No signs or symptoms of a DVT and achilles tendon is intact. He demonstrated improvements in pain post incline board stretching. Advised him to avoid calf strengthening for a few days and encouragedcontinued icing and gentle stretching. The patient will continue to benefit from ongoing skilled physical therapy to progress toward set goals. PLAN FOR NEXT VISIT: general LE strengthening, balance and endurance SUBJECTIVE: States he blew out his calf when walking in today. Pain: Pain Pain Level: 6 Pain Location: Calf - Left OBJECTIVE MEASURES WITH LEVEL OF FUNCTION: No objective measures taken this date. See response to exercise within assessment and flowsheet. TREATMENT: Therapeutic Exercise: 1: recumbent bike x 5 min 2: incline board 3x30 3: leg press 60# 3x15 4: MH abd. 1pl 3x10 6: HS curls 40# 3x10 7: TRX squats 3x10 10: cp x 5 min L calf (no charge) 11: standing HS stretch 3x30 12: multifidus reach 2pl 5x10 Skilled Intervention: Patient was educated in proper exercise technique and purpose for exercises. Skilled judgment was provided in selection of appropriate interventions. Correct performance of therapeutic exercises was facilitated with verbal, visual, and tactile cuing. Billing Therapeutic Exercise Treatment Minutes: 40 Total Treatment Time Minutes (timed/untimed): 45 Sia Hodge PT documented in this encounterSelect [facility] History of Present illness Narrative* Sia Hodge PT - 06/14/2022 2:36 PM EST Episode Visit Count: 9 Therapist That Will Accept/Oversee The Plan Of Care: Zachary Hodge Start of Care Date: 03/18/22 Onset Date: 02/19/22 Plan of Care Certification Date: 05/31/22 Next Certification Due Date: 07/30/22 Patient Identified by Name and Date of : Yes REHABILITATION AND SPORTS THERAPY PHYSICAL THERAPY TREATMENT NOTE ASSESSMENT: Adina David tolerated the session with fatigue and expected muscle soreness. He demonstrated good tolerance to progression of core and lower extremity strengthening without complaints of pain. Will continue to progress to tolerance. The patient will continue to benefit from ongoing skilled physical therapy to progress toward set goals. PLAN FOR NEXT VISIT: general LE strengthening, balance and endurance SUBJECTIVE: Patient Reason for Visit: General Deconditioning States that he feels like his groin is getting better. Pain: Pain Pain Level: 1 Pain Location: Groin - Right OBJECTIVE MEASURES WITH LEVEL OF FUNCTION: LE Flexibility R Quadriceps Flexibility: moderate limitation L Quadriceps Flexibility: moderate limitation TREATMENT: Therapeutic Exercise: 1: nustep x 5 min 2: incline board 3x30 3: leg press 60# 3x15 4: MH abd. 1pl 3x10 5: calf raises 3x10 6: HS curls 40# 3x10 7: TRX squats 3x10 8: leg extension 20# 3x10 9: foam pads x 3 w/poles 10: PKF 3x30 11: standing HS stretch 3x30 12: multifidus reach 2pl 5x10 Skilled Intervention: Patient was educated in proper exercise technique and purpose for exercises. Skilled judgment was provided in selection of appropriate interventions. Correct performance of therapeutic exercises was facilitated with verbal, visual, and tactile cuing. Billing Therapeutic Exercise Treatment Minutes: 45 Total Treatment Time Minutes (timed/untimed): 50 Sia Hodge PT documented in this encounterSelect [facility]23 Miscellaneous Notes* Telephone Encounter - Bernarda Sarah RN - 06/14/2022 12:20 PM EST Elieser's requests chart notes discussing the use and benefit of CPAP. Can you addend this in his last office visit? Please fax to [phone]. documented in this encounterSelect [facility]-01-[facility]23 History of Present illness Narrative* Sia Hodge PT - 06/12/2022 3:15 PM EST Episode Visit Count: 8 Therapist That Will Accept/Oversee The Plan Of Care: Zachary Hodge Start of Care Date: 03/18/22 Onset Date: 02/19/22 Plan of Care Certification Date: 05/31/22 Next Certification Due Date: 07/30/22 Patient Identified by Name and Date of : Yes REHABILITATION AND SPORTS THERAPY PHYSICAL THERAPY TREATMENT NOTE ASSESSMENT: Adina David tolerated the session with fatigue and expected muscle soreness. He demonstrated improvements in quad flexibility during prone knee flexion. Slight groin pain noted with exercises but was able to increase in both weights and set today. The patient will continue to benefit fromongoing skilled physical therapy to progress toward set goals. PLAN FOR NEXT VISIT: general LE strengthening, balance and endurance SUBJECTIVE: Patient Reason for Visit: General Deconditioning Just went to right fit so he is a little bit tired and quads feel tight. Pain: Pain Pain Level: 1 Pain Location: Groin - Right OBJECTIVE MEASURES WITH LEVEL OF FUNCTION: No objective measurements taken today TREATMENT: Therapeutic Exercise: 1: nustep x 5 min 2: incline board 3x30 3: leg press 60# 3x15 4: MH abd. 1pl 3x10 5: calf raises 3x10 6: HS curls 40# 3x10 7: TRX squats 3x10 8: leg extension 20# 3x10 9: foam pads x 3 w/poles 10: PKF 3x30 11: standing HS stretch 3x30 12: multifidus reach 1.5pl 5x10 Skilled Intervention: Patient was educated in proper exercise technique and purpose for exercises. Skilled judgment was provided in selection of appropriate interventions. Correct performance of therapeutic exercises was facilitated with verbal, visual, and tactile cuing. Billing Therapeutic Exercise Treatment Minutes: 40 Total Treatment Time Minutes (timed/untimed): 45 Sia Hodge PT documented in this encounterSelect [facility]-28-2023 Instructions* Patient Instructions* Destin Jacinto - 06/11/2022 5:00 PM EST - Continue to monitor blood counts and iron studies with regular labs - Continue to monitor stools for signs of blood - Continue to follow up with hematology - Will send copy of note to Dr. Gallardo - Likely next step would be double balloon if bleeding restarts - Welcome to see me in clinic as needed documented in this encounterSelect [facility]-28-2023 History of Present illness Narrative* Buffy Min MD - 06/11/2022 4:00 PM EST Images from the original note were not included. NEW GENERAL GI PATIENT HISTORY & PHYSICAL Adina David 06/11/2022 Subjective This is a 66 year old male with a history of CAD, anemia who presents for evaluation of small bowelAVMs. Currently being followed by Dr. Gallardo. Recommendations will be communicated back to referring physician via fax, mail, or sharing of EMR. CC Patient presents with: New Patient: Internal bleeding History of Present Illness Mr. 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 Patient had an admission in 04/2021 with acute anemia, hemoglobin found to be 4.8 status post 6 PRBC, Capsule endoscopy that admit showed bleeding with proximal small bowel. 05/09/21- Push enteroscopy-active bleeding in distal duodenum/proximal jejunum, successfully treated with APC. Of note was on eliquis and was held that time. Per chart review (reportedly not in our system) colonoscopy in 2018 showed AVMs nonbleeding in the cecum, 2019 had another episode of GI bleed and was on Plavix at that time, colonoscopy per chart review was done and showed AVMs and internal hemorrhoid bleed. Patient was seen by Dr. Espana in 03/2022 and plan was to start octreotide but insurance declined twice. Today patient denied any hematemesis, red blood per rectum, black stool, nausea, vomiting. He reported to 2 soft bowel movements every day which is normal for him. He reported that last blood transfusion was 1PRBC in October/2021 otherwise he is on IV iron with monthly check of his iron studies. He follow-up with hematology regarding anemia and his CLL. Today he denied abdominal pain but reported pain over R groin since his hernia surgery gave it 04/23. He is interested in discussing what can be done for AVMs now with octreotide has been declined by his insurance. Of note he is off Plavix, takes baby aspirin and off Eliquis - was on for DVT around the time of femur fracture -Hernia incarcerated --> emergency repair Jan 2022. Notable finding was a twist in the bowel that was untwisted and did not require a resection. Had diarrhea for about 4 months before hernia repair that has resolved following surgery. Review of Systems A comprehensive 14-point review of systems was performed and found to be negative except as noted in the HPI. Answers submitted by the patient for this visit: Review of Systems Gastroenterology (Submitted on 06/10/2022) Fever: No Chills: No Night Sweats: Yes Unitentional Weight Change: No A Cough: Yes Belly pain: Yes A feeling of fullness or have belly pain after eating: No Food getting stuck in your throat or chest after eating: Yes Nausea - that is, a feeling like you could vomit: No Regurgitation - that is, food or liquid coming back up into your throat or mouth without vomiting, or feel burning behind your breast bone: No Loss of appetite: No To throw up or vomit: No Blood in your stools: No Black tarry stools: No Loose or watery stools: Yes The feeling like you need to empty your bowels right away - that is, feel as if you would have an accident: Yes Bowel incontinence - that is, have an accident because you cannot make it to the bathroom in time: Yes Problems with straining while having bowel movements , hard or lumpy stools, or feel unfinished (that you have not passed all your stool): No Pain in rectum or anus during bowel movements: No Problems with jaundice - that is, yellow discoloration of your skin or eyes, now or in the past: No Problems with having to flush the toilet more than two times due to oily stool, or see stool floating with oil: No Past Medical History PAST MEDICAL HISTORY Diagnosis Date Adenomatous duodenal polyp Anemia Arthritis 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 glover Diverticulitis of intestine with perforation 2004 WITH FISTULA Essential hypertension FHx: colon cancer Mother GERD (gastroesophageal reflux disease) HAS GI - [place] History of chickenpox History of scarlet fever History of spinal fracture 1973 L3-4 Hx of squamous cell carcinoma Hydrocele in adult Hypertriglyceridemia Hypokalemia 03/31/2019 Hypomagnesemia 03/31/2019 Leukocytosis 03/31/2019 Lipoma of back NSTEMI (non-ST elevated myocardial infarction) (HCC) Personal history of skin cancer bcc (r shoulder) 2015, scc (l lateral lower leg) 2018 Renal cancer (HCC) Stage 3 Sleep apnea CPAP Past Surgical History PAST SURGICAL HISTORY Procedure Laterality Date BOWEL RESECTION HX 2005 Partial COLONOSCOPY 01/07/2019 hemorrhoids and diverticulosis CYSTOSCOPY 2004 2005 EGD 11/2019 x3 EGD 12/31/2018 Rhodes's, Duodenal erosions. Dr. Enio Degroot. HEMORRHOID SURGERY HX 1999 LAP NEPHRECTOMY Right 2018 DR. MCDONALD PAST SURGICAL HISTORY OF hydrocel PAST SURGICAL HISTORY OF 07/23/2020 left femur REPAIR EPIGASTRIC HERNIA,REDUC STENT PLACEMENT 2018 MARTIN LAD TONSILLECTOMY AND ADENOIDECTOMY HX ads a child Family History No family history of celiac disease. Social History No tobacco, alcohol, or drugs. Medications Current Outpatient Medications Medication Sig Dispense Refill albuterol HFA (PROVENTIL HFA, VENTOLIN HFA) 90 mcg/actuation inhaler INHALE 1 TO 2 PUFFS BY MOUTH EVERY 6 HOURS NEEDED FOR WHEEZING 9 g 0 clarithromycin (BIAXIN) 500 mg Take 1 tablet by mouth every 12 hours for 10 days. 20 tablet 0 zolpidem (AMBIEN) 5 mg tablet Take 1 tablet by mouth at bedtime as needed for up to 30 days. 30 tablet 0 magnesium oxide (MAG-OX) 400 mg (241.3 mg magnesium) tablet Take 0.5 tablets by mouth once daily. 0.5 tablet 90 tablet 3 REPATHA SURECLICK 140 mg/mL pen injector INJECT 1 PEN SUBCUTANEOUSLY EVERY TWO WEEKS (Patient taking differently: once every month.) 2 mL 11 hydroxyurea (HYDREA) 500 mg capsule Take 1 capsule by mouth twice daily. (Patient taking differently: Take 1,000 mg by mouth once daily. 2 tablets once daily) 60 capsule 2 metoprolol tartrate, short acting, (LOPRESSOR) 50 mg tablet Take 1 tablet by mouth twice daily 180 tablet 3 CPAP valACYclovir (VALTREX) 1 gram One po bid for 3 days as needed for cold sores 30 tablet 11 omeprazole (PRILOSEC) 40 mg capsule Take 1 capsule by mouth once daily. 90 capsule 3 BABY ASPIRIN ORAL Take 81 mg by mouth once daily. calcitriol (ROCALTROL) 0.25 mcg capsule Take 0.25 mcg by mouth once daily. ergocalciferol 50,000 unit capsule (VITAMIN D2, DRISDOL) once every month. calcium carbonate (CALCIUM ANTACID) 500 mg chew One po bid prn gastritis 60 tablet 5 predniSONE (DELTASONE) 20 mg tablet Take 1 tablet by mouth twice daily. (Patient not taking: No sigreported) 14 tablet 0 Current Facility-Administered Medications Medication Dose Route Frequency Provider Last Rate Last Admin octreotide LAR 20 mg depot (monthly) injection (SandoSTATIN LAR) 20 mg INTRAMUSCULAR q 1 MONTH Hortencia Gallardo MD Allergies ALLERGIES Allergen Reactions Doxycycline Intolerance Rash, diarrhea Penicillin Hives Penicillin V Potass* Other: See Comments Objective Physical Exam BP 187/97 (BP Site: Left Arm, BP Position: Sitting, BP Cuff Size: Regular Adult) Pulse 92 Ht 177.8 cm (5' 10 ) Wt 90.7 kg (200 lb) SpO2 95% BMI 28.70 kg/m PHYSICAL EXAMINATION: General appearance: Well appearing, alert, in no acute distress, well-hydrated, well nourished. Skin: Skin color, texture, turgor normal, no suspicious rashes or lesions Head: Normocephalic, no masses, lesions, tenderness or abnormalities Lungs: Lungs clear to auscultation. No wheezing, rhonchi, rales. Heart: RRR without murmur, gallop, or rubs. No ectopy Abdomen: Normal abdominal exam, Abdomen soft, non-tender. Bowel sounds normal. No masses, organomegaly Extremities: Large right forearm lipoma, edema, skin discoloration, clubbing or cyanosis. Good capillary refill. Musculoskeletal: No joint swelling, deformity, or tenderness Peripheral pulses: Normal Neuro: Gait normal. Reflexes normal and symmetric. Sensation grossly intact. Labs Labs reviewed. Hemoglobin (g/dL) Date Value 05/29/2022 11.1 05/22/2021 9.6 Hematocrit (%) Date Value 05/29/2022 35.1 05/22/2021 34.1 WBC (k/uL) Date Value 05/29/2022 54.00 05/22/2021 59.56 Platelet Count (k/uL) Date Value 05/29/2022 561 05/22/2021 1,867 Glucose 89 03/18/2022 BUN 25 03/18/2022 Creatinine 1.51 03/18/2022 Sodium 139 03/18/2022 Potassium 4.7 03/18/2022 Chloride 102 03/18/2022 CO2 25 03/18/2022 Protein, Total 6.4 06/19/2021 Albumin 5.0 03/18/2022 Calcium 10.0 03/18/2022 Alkaline Phosphatase 68 06/19/2021 Bilirubin, Total 0.2 06/19/2021 AST 21 06/19/2021 ALT 14 06/19/2021 Imaging Imaging reviewed including outside records. CT Abd/pelvis 01/23/21: 1. Extensive lymph node enlargement throughout the periportal region and throughout the mesenteric fat in the right abdomen. Not significantly changed since prior CT scan 07/19/2020. Stable pelvic and inguinal lymph node prominence. 2. Status post open reduction internal fixation proximal left femur fracture. Fracture line still visible. Prior Endoscopy Colonoscopy 08/21/17: - A few non-bleeding colonic angiodysplastic lesions. - Patent end-to-end colo-colonic anastomosis, characterized by healthy appearing mucosa. - The examination was otherwise normal on direct and retroflexion views. - No specimens collected. Colonoscopy (OR) 2019: moderate burton-diverticulosis EGD (OR) 2019: No obvious peptic ulcer disease Small duodenal erosions 1.5 cm pedunculated polyp in D2, appears hyperplastic Rhodes's esophagus, Continental class C0M2. Biopsies taken to rule out H. Pylori and intestinal metaplasia CONVERTED FINAL DIAGNOSIS FINAL DIAGNOSIS: A) STOMACH, BIOPSY - GASTRIC ANTRAL AND OXYNTIC TYPE MUCOSA WITH MILD CHRONIC INACTIVE GASTRITIS. NO MORPHOLOGIC EVIDENCE OF HELICOBACTER PYLORI ORGANISMS. B) GASTROESOPHAGEAL JUNCTION, BIOPSY - SQUAMOCOLUMNAR JUNCTION WITH INTESTINAL METAPLASIA. NEGATIVEFOR DYSPLASIA. EGD (OR) 11/23/2019: 2cm duodenal lipoma in D2, just proximal to ampulla - not removed No evidence of papilloma Short segment Rhodes's esophagus Biopsies taken to rule out H. Pylori, adenoma, Hrodes's. CONVERTED FINAL DIAGNOSIS FINAL DIAGNOSIS: A) STOMACH, BIOPSY - GASTRIC BODY TYPE MUCOSA WITH MINIMAL REACTIVE FEATURES. NO MORPHOLOGIC EVIDENCE OF HELICOBACTER PYLORI. B) GASTROESOPHAGEAL JUNCTION, BIOPSY - CHRONICALLY INFLAMED SQUAMOUS AND GLANDULAR MUCOSA WITH NO DEFINITE INTESTINAL METAPLASIA. NEGATIVE FOR DYSPLASIA. C) SMALL INTESTINE, DUODENUM, BIOPSY - NO SIGNIFICANT HISTOPATHOLOGIC DIAGNOSIS. SEE COMMENT. COMMENT: If a submucosal lesion is present, it was not adequately sampled in this biopsy. Video capsule 04/2021 (inpatient): Multiple AVMs and active oozing/bleeding noted in duodenum/jejunum areas. AVM also noted in distal small bowel with specs of blood floating. Video capsule 02/2019: Small bowel: There is a large duodenal diverticulum. The capsule stays within the diverticulum for over 11 hours before exiting and moving distally. As it leaves the diverticulum, there is a small amount of fresh red blood, but I suspect this may be due to mucosal trauma related to the capsule passage. Assessment and Plan Mr. 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 He denied any red blood per rectum or melena. His CBC 05/29 stable, last blood transfusion 10/2021 with 1 unit of PRBC. He had virtual visit 03/[address] Gallardo plan was to start octreotide for hx of AVM bleed but insurance declined. Plan: -continue to monitor stool for any sign of bleed -continue with checking iron studies and cbc -continue to follow with hematology -most likely will need double balloon if bleed again. Cynthia Oro MD Attending Note I evaluated the patient and personally participated in the baum components. I agree with Dr. Yonas Oro's assessment and plan. 66 yo M with CKD, prior GI bleeds with significant transfusion burden, CLL, CAD s/p CABG on baby aspirin who presents with anemia and concern for management of small bowel AVMs. No current signs of GI bleeding, octreotide was not approved by insurance. No longer on AC or AP agent other than 81 mg aspirin. Continue to monitor CBC, iron and follow stools for any signs of bleeding, anticipatory guidance given. Next step likely push enteroscopy with capsule placement to direct double balloon enteroscopy during active bleeding to provide targeted treatment for small bowel AVMs (CKD and advanced age are his risk factors for this) and complete investigation for alternative source. Signature: Buffy Min MD A total of 45 minutes were spent preparing for the encounter in chart review including available outside records, performing the [id number] history and physical exam, and documenting the encounter in the EMR including the time spent by Dr. Yonas Oro. documented in this encounter[facility] History of Present illness Narrative* Sia Hodge PT - 06/07/2022 1:01 PM EST Episode Visit Count: 7 Therapist That Will Accept/Oversee The Plan Of Care: Zachary Hodge Start of Care Date: 03/18/22 Onset Date: 02/19/22 Plan of Care Certification Date: 05/31/22 Next Certification Due Date: 07/30/22 Patient Identified by Name and Date of : Yes REHABILITATION AND SPORTS THERAPY PHYSICAL THERAPY TREATMENT NOTE ASSESSMENT: Adina David tolerated the session with fatigue and expected muscle soreness. He demonstrated improvements in lower extremity flexibility, especially quads with prone knee flexion. Will planto progress into core stability next treatment session. The patient will continue to benefit from on going skilled physical therapy to progress toward set goals. PLAN FOR NEXT VISIT: general LE strengthening, balance and endurance SUBJECTIVE: Patient Reason for Visit: General Deconditioning Is back on antibiotics for bronchitis. Pain: Pain Pain Level: 0 Pain Location: Groin - Right OBJECTIVE MEASURES WITH LEVEL OF FUNCTION: No objective measures taken today TREATMENT: Therapeutic Exercise: 1: nustep x 5 min 2: incline board 3x30 3: leg press 60# 3x15 4: MH abd. 1pl 3x10 5: calf raises 3x10 6: HS curls 30# 3x10 7: TRX squats 3x10 8: leg extension 15# 3x10 9: foam pads x 3 w/poles 10: PKF 3x30 11: standing HS stretch 3x30 Skilled Intervention: Patient was educated in proper exercise technique and purpose for exercises. Skilled judgment was provided in selection of appropriate interventions. Correct performance of therapeutic exercises was facilitated with verbal, visual, and tactile cuing. Billing Therapeutic Exercise Treatment Minutes: 40 Total Treatment Time Minutes (timed/untimed): 45 Sia Hodge PT documented in this encounterSelect [facility] History of Present illness Narrative* Ulises Ramos, DO - 06/05/2022 2:41 PM EST Here for continued cough w prod sputum. Still working on his rehab and making progress. 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 glover Diverticulitis of intestine with perforation 2004 WITH FISTULA Essential hypertension FHx: colon cancer Mother GERD (gastroesophageal reflux disease) HAS GI - SLEZAK History of chickenpox History of scarlet fever History of spinal fracture 1973 L3-4 Hx of squamous cell carcinoma Hydrocele in adult Hypertriglyceridemia Hypokalemia 03/31/2019 Hypomagnesemia 03/31/2019 Leukocytosis 03/31/2019 Lipoma of back NSTEMI (non-ST elevated myocardial infarction) (HCC) Personal history of skin cancer bcc (r shoulder) 2015, scc (l lateral lower leg) 2018 Renal cancer (HCC) Stage 3 Sleep apnea CPAP PAST SURGICAL HISTORY Procedure Laterality Date BOWEL RESECTION HX 2004 Partial COLONOSCOPY 01/07/2019 hemorrhoids and diverticulosis CYSTOSCOPY 2004 2005 EGD 11/2019 x3 EGD 12/31/2018 Rhodes's, Duodenal erosions. Dr. Enio Degroot. HEMORRHOID SURGERY HX 1999 LAP NEPHRECTOMY Right 2018 DR. 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 0.5 tablet^Disp: 90 tablet^Rfl: 3 albuterol HFA (PROAIR HFA) 90 mcg/actuation inhaler^Inhale 2 Puffs as instructed every 6 hours as needed for wheezing/shortness of breath.^Disp: 8.5 g^Rfl: 0 REPATHA SURECLICK 140 mg/mL pen injector^INJECT 1 PEN SUBCUTANEOUSLY EVERY TWO WEEKS^Disp: 2 mL^Rfl: 11 (Patient taking differently: once every month.) hydroxyurea (HYDREA) 500 mg capsule^Take 1 capsule by mouth twice daily.^Disp: 60 capsule^Rfl: 2 (Patient taking differently: Take 1,000 mg by mouth once daily. 2 tablets once daily) metoprolol tartrate, short acting, (LOPRESSOR) 50 mg tablet^Take 1 tablet by mouth twice daily^Disp: 180 tablet^Rfl: 3 CPAP^^Disp: ^Rfl: valACYclovir (VALTREX) 1 gram^One po bid for 3 days as needed for cold sores^Disp: 30 tablet^Rfl: 11 omeprazole (PRILOSEC) 40 mg capsule^Take 1 capsule by mouth once daily.^Disp: 90 capsule^Rfl: 3 BABY ASPIRIN ORAL^Take 81 mg by mouth once daily.^Disp: ^Rfl: calcitriol (ROCALTROL) 0.25 mcg capsule^Take 0.25 mcg by mouth once daily.^Disp: ^Rfl: ergocalciferol 50,000 unit capsule (VITAMIN D2, DRISDOL)^once every month. ^Disp: ^Rfl: calcium carbonate (CALCIUM ANTACID) 500 mg chew^One po bid prn gastritis^Disp: 60 tablet^Rfl: 5 predniSONE (DELTASONE) 20 mg tablet^Take 1 tablet by mouth twice daily.^Disp: 14 tablet^Rfl: 0 (Patient not taking: Reported on 06/05/2022) Problem List: ACTIVE PROBLEM LIST Deng (Acute Kidney Injury) (Hcc) - 01/07/2019 (D priority) Iron Deficiency Anemia Due to Chronic Blood Loss - 02/19/2022 Vitamin D Deficiency - 07/17/2021 Obesity, Class I, Bmi 30-34.9 - 05/28/2021 Acute Blood Loss Anemia - 05/16/2021 Covid-19 Virus Infection - 05/16/2021 Severe Protein-Calorie Malnutrition (Hcc) - 05/09/2021 Severe Anemia - 05/02/2021 Cira (Obstructive Sleep Apnea) - 05/01/2021 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) - 03/14/2021 Leg Swelling - 03/14/2021 Leukocytosis - 03/31/2019 Essential Thrombocythemia ([facility]) - 03/31/2019 Ckd (Chronic Kidney Disease) Stage 3, Gfr 30-59 Ml/Min ([facility]) - 03/31/2019 Hypertriglyceridemia 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 S/P Drug Eluting Coronary Stent Placement - 11/25/2018 Stage 2 Chronic Kidney Disease - 11/10/2018 Nstemi (Non-St Elevated Myocardial Infarction) ([facility]) - 10/24/2018 Bph (Benign Prostatic Hyperplasia) - 10/05/2018 History of Right Nephrectomy - 10/05/2018 Nocturia - 03/19/2018 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 Cll (Chronic Lymphocytic Leukemia) ([facility]) - 06/13/2017 Iron Deficiency Anemia - 06/13/2017 Renal Cancer, Right ([facility]) - 04/29/2017 Essential Hypertension Multiple Lipomas Gerd (Gastroesophageal Reflux Disease) Comment: HAS GI - TRACE H/O Resection of Large Bowel - 04/14/2004 Comment: DR. SUAREZ Review of Systems Constitutional: Negative. Respiratory: Positive for cough and shortness of breath. Physical Exam Cardiovascular: Rate and Rhythm: Normal rate and regular rhythm. Pulses: Normal pulses. Heart sounds: Normal heart sounds. Pulmonary: Breath sounds: Wheezing and rhonchi (rll) present. Neurological: Mental Status: He is alert. BP 148/80 (BP Site: Left Arm, BP Position: Sitting, BP Cuff Size: Large Adult) Pulse 77 Temp 36.5 C (97.7 F) (Left Tympanic) Ht 177.8 cm (5' 10 ) Wt 94.1 kg (207 lb 6.4 oz) SpO2 94% BMI 29.76 kg/m ASSESSMENT/PLAN: 1. Bronchitis - ICD9: 490, ICD10: J40 Will tx w antibiotic Ulises Ramos DO documented in this encounterSelect [facility]23 History of Present illness Narrative* Sia Hodge PT - 06/03/2022 4:46 PM EST Episode Visit Count: 6 Therapist That Will Accept/Oversee The Plan Of Care: Zachary Hodge Start of Care Date: 03/18/22 Onset Date: 02/19/22 Plan of Care Certification Date: 05/31/22 Next Certification Due Date: 07/30/22 Patient Identified by Name and Date of : Yes REHABILITATION AND SPORTS THERAPY PHYSICAL THERAPY TREATMENT NOTE ASSESSMENT: Adina David tolerated the session with fatigue and expected muscle soreness. He demonstrated good tolerance to re-initiation of lower extremity strength. He demonstrates difficulty with lower extremity flexibility especially quads. The patient will continue to benefit from ongoing skilledphysical therapy to progress toward set goals. PLAN FOR NEXT VISIT: general LE strengthening, balance and endurance SUBJECTIVE: Patient Reason for Visit: General Deconditioning Has been feeling pretty good the last few days. Pain: Pain Pain Level: 0 Pain Location: Groin - Right OBJECTIVE MEASURES WITH LEVEL OF FUNCTION: LE Flexibility R Quadriceps Flexibility: moderate limitation L Quadriceps Flexibility: moderate limitation TREATMENT: Therapeutic Exercise: 1: nustep x 5 min 2: incline board 3x30 3: leg press 60# 3x10 4: MH abd. 1pl 2x10 5: calf raises 2x10 6: HS curls 30# 3x10 7: TRX squats 3x10 8: leg extension 15# 3x10 9: foam pads x 3 w/poles 10: PKF 3x30 11: standing HS stretch 3x30 Skilled Intervention: Patient was educated in proper exercise technique and purpose for exercises. Skilled judgment was provided in selection of appropriate interventions. Correct performance of therapeutic exercises was facilitated with verbal, visual, and tactile cuing. Billing Therapeutic Exercise Treatment Minutes: 40 Total Treatment Time Minutes (timed/untimed): 45 Sia Hodge PT documented in this encounterSelect [facility]23 History of Present illness Narrative* Sia Hodge PT - 05/31/2022 1:13 PM EST Episode Visit Count: 5 Therapist That Will Accept/Oversee The Plan Of Care: Zachary Hodge Start of Care Date: 03/18/22 Onset Date: 02/19/22 Plan of Care Certification Date: 05/31/22 Next Certification Due Date: 07/30/22 Patient Identified by Name and Date of : Yes REHABILITATION AND SPORTS THERAPY PHYSICAL THERAPY PROGRESS REPORT PLAN OF CARE UPDATE: Assessment: Adina David demonstrates improvements in lower extremity strength and balance. He hasmet 1 goals and new goals added to address lower extremity flexibility . Patient continues to present with impairments in flexibility, joint mobility, overall function, strength, and tissue tenderness that interfere with physical activities, recreational activities . Current prognosis is Good due to: current objective clinical presentation, positive past response to therapy . He will benefit from continued skilled therapy services to meet the updated goals for this plan of care as noted below. Goals for Episode of Care: created on 03/18/22 through 05/17/22-extended through 07/30/22 [place] in home exercise program.-Progressing Patient will decrease pain rating by 2 points to meet minimal clinical important difference for numeric pain rating scale.-Not Met Patient will demonstrate increase in bilateral hip extensors strength to 4/5 in order to improve function for moderate to heavy functional tasks.-Progressing Patient will increase flexibility of bilateral hamstrings to WNL to improve ability to maintain proper posture, improve mechanics, and decrease pain.-Porgressing Patient will Improve Timed Up and Go to <10 seconds to demonstrate decreased risk of falling.-Progressing Patient will improve 5 time sit to stand to demonstrate improvement in functional lower extremity strength.-Not Met Patient will complete >12 reps on 30 second chair stand test to decrease risk of falls.-Not Met Improve tandem stance on 4 stage balance test to = or >10 seconds to decrease risk for falls. -MET Patient Goals: improve endurance and strength New goal 05/31/22 Patient will increase flexibility of bilateral quads to WNL to improve ability to maintain proper posture, improve mechanics, and decrease pain. Planned Interventions, Frequency, and Duration: 2x/week, 4 weeks Total Number of Visits Planned: 8 Patient to be seen for Therapeutic exercise (65530), Neuromuscular re-education (75111), Manual therapy (64370), Therapeutic activities (36838), Self-intermediate management (33964), Gait Training (76379), Patient/Family/Caregiver Education PLAN FOR NEXT VISIT: general LE strengthening, balance and endurance SUBJECTIVE: Patient Reason for Visit: General Deconditioning. States that he was sick the whole month of April so he wasn't able to attend PT. Thought he did something to the incision of his herniarepair but he saw the surgeon and it was ok, surgeon states he may always have that pain. Functional Limitations: physical activities, recreational activities Pain: Pain Pain Level: 2 Pain Location: Groin - Right PROMIS Scales Higher is Better 12/05/2021 05/31/2022 05/31/2022 Phys Func - Score - - 34 (moderate dysfunction) Phys Func - Percentile - - 5 % GH Physical - Score 34.9 (Poor) - 29.6 (Poor) GH Physical - Percentile 7 % 2 % 2 % GH Mental - Score Incomplete - 36.3 (Fair) GH Mental - Percentile - 9 % 9 % Self-Eff Symptom - Score - - 35 (Low) Self-Eff Symptom - Percentile - - 7 % T-scores: mean of general population = 50. 5 points is clinically meaningfully difference Percentiles provide an indication of how the patient's score ranks in relation to the general population. Higher percentile rankings indicate better function/quality of life. 50th percentile is the average of the general population and indicates half of respondents had a worse score. T-scores: mean of general population = 50. 5 points is clinically meaningfully difference Percentiles provide an indication of how the patient's score ranks in relation to the general population. Higher percentile rankings indicate better function/quality of life. 50th percentile is the average of the general population and indicates half of respondents had a worse score. OBJECTIVE MEASURES WITH LEVEL OF FUNCTION: LE PROM R Hip Flexion: 110 Degrees R Hip Internal Rotation: 20 Degrees R Hip External Rotation: 45 Degrees L Hip Flexion: 115 Degrees L Hip Internal Rotation: 10 Degrees L Hip External Rotation: 30 Degrees LE Flexibility Flexibility: Quadriceps Flexibility R Quadriceps Flexibility: moderate limitation L Quadriceps Flexibility: moderate limitation R Ankle Dorsiflexion Flexibility: moderate limitation L Ankle Dorsiflexion Flexibility: moderate limitation LE Strength R Hip Extension: 4+/5 R Hip ABduction: 4+/5 R Knee Extension (L3): 5/5 R Knee Flexion: 5/5 R Ankle Dorsiflexion (L4): 5/5 L Hip Extension: 4-/5 L Hip ABduction: 4/5 L Knee Extension (L3): 5/5 L Knee Flexion: 5/5 L Ankle Dorsiflexion (L4): 5/5 Functional Performance Test Results Assistive Device: None 30 Second Chair Stand Test: 8 reps 5 Times Sit to Stand Test : 18 sec Timed Up and Go (sec): 10.35 sec Timed Up and Go - Condition 2 (sec) : 10.56 4 Stage Balance Test Single leg stance - right (sec): 10 sec Single leg stance - left (sec): 10 sec TREATMENT: Therapeutic Exercise: 1: nustep x 5 min 2: incline board 3x30 3: ROM/strength assessment 4: TUG/5x STS/30 second chair stand 5: *prone lying 6: *standing HS stretch 3x30 Skilled Intervention: Patient was educated in proper exercise technique and purpose for exercises. Skilled judgment was provided in selection of appropriate interventions. Correct performance of therapeutic exercises was facilitated with verbal, visual, and tactile cuing. Billing Therapeutic Exercise Treatment Minutes: 40 Total Treatment Time Minutes (timed/untimed): 45 Sia Hodge PT documented in this encounterSelect Medical [facility]02-09-2023 History of Present illness Narrative* Wilton Palma RN - 05/23/2022 10:11 AM EST [facility]IGHT [facility] TELEPHONIC OUTREACH Provider Action/FYI: CKD: CKD Spk with Pt he noted Hx: Right Hernia surgery, he noted site has healed well, no signs of infection, denies fever or chills Pt noted chronic cough, denies Sob, intermittent wheezing, had a virus / cold noting gradual improvement after taking ATB and Prednisone, using Albuterol 4x daily if needed Pt completed Appt with Dr. Ramos 05/06/22, follow up Appt 06/05/22 , is on the wait list for a sooner Appt Denies current needs Contact made with patient: Yes Patient identified by name and . Discussed care with patient It s nice talking to you again. As a reminder, this is our bi-weekly check-in where I will be asking you questions about your health. This will only take a few minutes of your time. Is this a good time? Yes Symptoms What Chronic Disease(s) does the patient have: CKD Do you check your blood pressures at home? Yes, Enter readings: 122/68 Do you have new or worse shortness of breath with activity? No Do you feel like you are dehydrated for any reason, including not being able to eat or drink normally, or having less urine/much darker urine than normal for you? No Do you check your daily weight at home? Yes, Have you noticed a sudden gain in weight greater than three pounds in a day or three pounds in a week? No Are you having any other symptoms that your PCP needs to know about? No Symptoms: Symptom Escalation NYDIA Education Ordered -: No The patient required an escalation for symptom(s)? No Medications Do you have any questions about taking your medication or which medications you should be on? No Do you need any medication refills at this time, including any of the medications you might take only when needed? No Social We would like to make sure you have what you need so that your basic needs are met- including your personal safety, food, housing, transportation and medications? Would you like to speak with a social work support team assoc to help give you support for any of these needs? No It can be normal to feel anxious or down during a time like this. Would you like to talk to a mental health professional about how you have been feeling? No Closing Thank you for taking the time to talk with me today. We want to work with you to ensure that we arekeeping your medical condition(s) well-controlled and to keep you healthy and out of the doctor's office or hospital. It s also not too late for me to sign you up for automated weekly questionnaires through [employer]. This is an easy way for us to stay connected each week. Are you interested? No, I understand. We can always sign you up in the future if you change your mind. Just as a reminder, will continue to call you every other week to check in on your health. Our calls should take 10-15 minutes or less. Remember, if you have concerns in between our calls, please call your PCP's office right away. Thank you. Enter next patient outreach date for two weeks on the same day of the week as today in the Track PtOutreach and End outreach. Wilton Palma RN May 23, 2022 10:11 AM documented in this encounterSelect Medical [facility]02-08-2023 Miscellaneous Notes* Telephone Encounter - Essie Rivera LPN - 05/22/2022 3:20 PM EST Pharmacy [facility] message requesting the following refill Refill(s) Requested: Requested Prescriptions Pending Prescriptions Disp Refills zolpidem (AMBIEN) 5 mg tablet [Pharmacy Med Name: Zolpidem Tartrate 5 MG Oral Tablet] 30 tablet 0 Sig: TAKE 1 TABLET BY MOUTH ONCE DAILY AT BEDTIME NEEDED FOR UP TO 30 DAYS ALLERGIES Allergen Reactions Doxycycline Intolerance Rash, diarrhea Penicillin Hives Penicillin V Potass* Other: See Comments (home) [phone] (cell) Last Office Visit Date: 03/22/2022 Last [facility] Visit: Visit date not found Future Appointment: 06/21/2022 The patients preferred pharmacy has been captured for this encounter? yes Request is for script(s) to be escript to pharmacy. Essie Rivera LPN documented in this encounterSelect Medical [facility]01-31-2023 Miscellaneous Notes* Telephone Encounter - aPri Pickett Ma - 05/14/2022 5:04 PM EST Patient phones requesting refills as follows: Last visit 05/06/2022 Requested Prescriptions Pending Prescriptions Disp Refills magnesium oxide (MAG-OX) 400 mg (241.3 mg magnesium) tablet [Pharmacy Med Name: Magnesium Oxide 400(241.3 Mg) MG Oral Tablet] 30 tablet 0 Sig: Take 1 tablet by mouth once daily Please review and advise. Pari Pickett Ma documented in this encounterSelect Medical Specialty [facility]01-17-2023 Miscellaneous Notes* Telephone Encounter - Vivian Galvin RN - 04/30/2022 1:22 PM EST PT wanted to know if Dr. Gallardo had reviewed his most recent blood work results from 04/23/22 to see if he is doing better and his bleeding is improving. Has had several iron infusions. Let him know would ask MD. Vivian Galvin RN documented in this encounterSelect Medical [facility]01-10-2023 Miscellaneous Notes* Telephone Encounter - Vivian Galvin RN - 04/23/2022 8:37 AM EST Details for this will be documented in other encounter, where trying to continue to work on PA for med. Vivian Galvin RN * Telephone Encounter - Kristie Fatima Adm - 04/22/2022 11:08 AM EST Patient left a voicemail with cgrt admin regarding a prescription they are trying to get from Dr. Gallardo called [facility], patient stated that there has been trouble getting that but per insurance provider if medication is billed under Part B instead of Part D, then that should work and cost less money. 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 I am sorry I missed your call. I will reach out to you again tomorrow. (if the third call I will reach out to you again next week) Enter next patient outreach date for the following business day using the Track Pt Outreach. End outreach. Wilton Palma RN April 18, 2022 1:06 PM documented in this encounterSelect [facility]23 Miscellaneous Notes* Telephone Encounter - Annmarie Ronquillo PA-C - 04/17/2022 4:17 PM EST I called and spoke with patient regarding xray results. Negative for pneumonia. Wheezing on exam, suspect viral bronchitis. Will send prednisone and inhaler. Patient states he was told to be careful with prednisone in the past due to having only one kidney. Creatinine clearance is calculated as 49 adjusted for body weight. According to UpToDate no dosage adjustment needed for prednisone in renally impaired patients. The following approved medication requests have been transmitted electronically. Requested Prescriptions Signed Prescriptions Disp Refills albuterol HFA (PROAIR HFA) 90 mcg/actuation inhaler 8.5 g 0 Sig: Inhale 2 Puffs as instructed every 6 hours as needed for wheezing/shortness of breath. Authorizing Provider: ANNMARIE RONQUILLO predniSONE (DELTASONE) 20 mg tablet 10 tablet 0 Sig: Take 1 tablet by mouth twice daily for 5 days. Authorizing Provider: ANNMARIE RONQUILLO PA-C documented in this encounterSelect Medical Specialty [facility]01-04-2023 History of Present illness Narrative* AMRITA Ross) - 04/17/2022 1:10 PM EST Radiology Service Progress Note PATIENT NAME: Adina David DATE OF SERVICE: April 17, 2022 TIME: 1:16 PM PATIENT IDENTITY VERIFICATION COMPLETED USING TWO (2) IDENTIFIERS: Name and Date of confirmedby patient verbally and Name and Date of confirmed by identification band. FALL SCREENING: Has the patient had 2 falls in the last year or 1 fall with injury or currently using an Ambulatory Assistive Device (Walker, Cane, Wheelchair, Crutches, etc.)? No PATIENT GENDER DATA: Male PATIENT RELEVANT IMPLANT DATA REVIEWED: Not Applicable RADIOLOGY DEPARTMENT: General X-ray: Exam(s) Completed: Chest X-Ray PERIPHERAL IV DATA: Not applicable SIGNED BY: RT Vandana(Placido) April 17, 2022 1:16 PM documented in this encounterSelect Medical [facility]ty [facility]01-04-2023 Instructions* Patient Instructions* Annmarie Ronquillo PA-C - 04/17/2022 11:19 AM EST For X-rays, go to: [facility] [place] [facility], [address] [place] [address] Call [phone] Imaging Friday: Closed Friday: 7 a.m. - 6:30 p.m. Friday: 7 a.m. - 6:30 p.m. Friday: 7 a.m. - 6:30 p.m. : 7 a.m. - 6:30 p.m. Friday: 7 a.m. - 6:30 p.m. Friday: 8 a.m. - Noon documented in this encounterSelect Medical [facility]ty [facility]01-04-2023 History of Present illness Narrative* Annmarie Ronquillo PA-C - 04/17/2022 11:08 AM EST This note was created using NoteWriter. Subjective Adina David is a 66 year old male known to practice. New to me. Established patient of Ulises Ramos DO. 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 glover Diverticulitis of intestine with perforation 2004 WITH FISTULA Essential hypertension FHx: colon cancer Mother GERD (gastroesophageal reflux disease) HAS GI - SLEZAK History of chickenpox History of scarlet fever History of spinal fracture 1973 L3-4 Hx of squamous cell carcinoma Hydrocele in adult Hypertriglyceridemia Hypokalemia 03/31/2019 Hypomagnesemia 03/31/2019 Leukocytosis 03/31/2019 Lipoma of back NSTEMI (non-ST elevated myocardial infarction) (HCC) Personal history of skin cancer bcc (r shoulder) 2015, scc (l lateral lower leg) 2018 Renal cancer (HCC) Stage 3 Sleep apnea CPAP PAST SURGICAL HISTORY Procedure Laterality Date BOWEL RESECTION HX 2005 Partial COLONOSCOPY 01/07/2019 hemorrhoids and diverticulosis CYSTOSCOPY 2004 2004 EGD 11/2019 x3 EGD 12/31/2018 Rhodes's, Duodenal erosions. Dr. Enio Degroot. HEMORRHOID SURGERY HX 1999 LAP NEPHRECTOMY Right 2018 DR. 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 hydroxyurea (HYDREA) 500 mg capsule Take 1 capsule by mouth twice daily. metoprolol tartrate, short acting, (LOPRESSOR) 50 mg tablet Take 1 tablet by mouth twice daily valACYclovir (VALTREX) 1 gram One po bid for 3 days as needed for cold sores omeprazole (PRILOSEC) 40 mg capsule Take 1 capsule by mouth once daily. BABY ASPIRIN ORAL Take 81 mg by mouth once daily. magnesium oxide (MAG-OX) 400 mg (241.3 mg magnesium) tablet Take 1 tablet by mouth once daily calcitriol (ROCALTROL) 0.25 mcg capsule Take 0.25 mcg by mouth once daily. ergocalciferol 50,000 unit capsule (VITAMIN D2, DRISDOL) once every month. calcium carbonate (CALCIUM ANTACID) 500 mg chew One po bid prn gastritis albuterol HFA (PROAIR HFA) 90 mcg/actuation inhaler Inhale 2 Puffs as instructed every 6 hours as needed for wheezing/shortness of breath. predniSONE (DELTASONE) 20 mg tablet Take 1 tablet by mouth twice daily for 5 days. octreotide LAR (SANDOSTATIN LAR DEPOT) 20 mg Depot INJ Inject 20 mg intramuscularly once every month. amLODIPine (NORVASC) 10 mg tablet Take 1 tablet by mouth once daily. (Patient not taking: Reported on 04/17/2022) CPAP Current Facility-Administered Medications Medication Dose Route Frequency octreotide LAR 20 mg depot (monthly) injection (SandoSTATIN LAR) 20 mg INTRAMUSCULAR q 1 MONTH The history is provided by the patient. Flu Like Symptoms This is a new problem. The current episode started 1 to 4 weeks ago. The problem has been graduallyimproving. Associated symptoms include congestion, coughing, fatigue, myalgias and swollen glands. Pertinent negatives include no chest pain, diaphoresis, fever, sore throat or vomiting. Patient presents with 8 days of illness, states symptoms began as a bad head cold but progressed tomore flu-like symptoms including body aches. Continues to have cough and nasal congestion. Slight improvement today over yesterday. Review of Systems Constitutional: Positive for fatigue. Negative for diaphoresis and fever. HENT: Positive for congestion. Negative for sore throat. Respiratory: Positive for cough. Cardiovascular: Negative for chest pain. Gastrointestinal: Negative for vomiting. Musculoskeletal: Positive for myalgias. Objective BP 158/78 (BP Site: Left Arm, BP Position: Sitting, BP Cuff Size: Regular Adult) Pulse 78 Wt 91.2 kg (201 lb 1.6 oz) SpO2 97% BMI 28.85 kg/m Physical Exam Vitals and nursing note reviewed. Constitutional: General: He is not in acute distress. Appearance: He is well-developed and well-groomed. He is ill-appearing. He is not toxic-appearing or diaphoretic. HENT: Head: Normocephalic and atraumatic. Right Ear: Ear canal and external ear normal. A middle ear effusion is present. Left Ear: Ear canal and external ear normal. A middle ear effusion is present. Nose: Congestion and rhinorrhea present. Right Sinus: No maxillary sinus tenderness or frontal sinus tenderness. Left Sinus: No maxillary sinus tenderness or frontal sinus tenderness. Comments: Dried blood left nostril. Mouth/Throat: Mouth: Mucous membranes are moist. Pharynx: Oropharynx is clear. Uvula midline. No oropharyngeal exudate or posterior oropharyngeal erythema. Comments: Postnasal drip Eyes: General: Right eye: No discharge. Left eye: No discharge. Conjunctiva/sclera: Conjunctivae normal. Cardiovascular: Rate and Rhythm: Normal rate and regular rhythm. Heart sounds: Normal heart sounds. No murmur heard. Pulmonary: Effort: Pulmonary effort is normal. No tachypnea, accessory muscle usage, respiratory distress or retractions. Breath sounds: Decreased breath sounds, wheezing and rhonchi present. No rales. Musculoskeletal: Cervical back: Normal range of motion and neck supple. No tenderness. Lymphadenopathy: Cervical: Cervical adenopathy present. Right cervical: Superficial cervical adenopathy present. Left cervical: Superficial cervical adenopathy present. Skin: General: Skin is warm and dry. Neurological: General: No focal deficit present. Mental Status: He is alert and oriented to person, place, and time. Psychiatric: Mood and Affect: Mood normal. Behavior: Behavior normal. Behavior is cooperative. Assessment and Plan ASSESSMENT/PLAN: 1. URI with cough and congestion - ICD9: 465.9, ICD10: J06.9 (primary diagnosis) - DDX Viral URI, bronchitis, pneumonia, sinusitis - Day 8 of symptoms, sent COVID/flu swab - Chest xray today, will call with results. - Discussed viral etiology and rationale for treatment. - Symptomatic treatment with prn analgesia - Supportive care with fluids and rest - Follow up in 5-7 days if symptoms persist or sooner if worsening of symptoms - COVID WITH FLUA+B, ROUTINE - XR CHEST 2V FRONTAL/LAT 2. Wheeze - ICD9: 786.07, ICD10: R06.2 - Chest xray today, will call with results - Will send albuterol and either antibiotic for pneumonia or prednisone for bronchitis - XR CHEST 2V FRONTAL/LAT Annmarie Ronquillo PA-C Medical Decision Making: Problems: Low: Acute, uncomplicated illness or injury Data: Unique test(s) ordered: 2 Risk: Moderate: Drug management Medical Decision Making Level: 3 - Low documented in this encounterSelect Medical [facility]12-23-2022 Miscellaneous Notes* Telephone Encounter - Vivian Galvin RN - 04/05/2022 9:59 AM EST PA needed for med. Completed questions in [employer] system and sent to insurance, will await next steps. Vivian M. Glenis, RN documented in this encounterSelect Medical [facility]12-22-2022 Miscellaneous Notes* Telephone Encounter - Derek Horne MA - 04/04/2022 4:39 PM EST Pt informed. Derek Horne MA * Telephone Encounter - Halle Dale MD - 04/04/2022 12:19 PM EST I wrote back to his GI doc. Waiting for her to put in the orders for sandostatin LAR, then we can schedule monthly injection at [facility]. Please let him know. Thanks * Telephone Encounter - Derek Horne MA - 04/04/2022 11:09 AM EST Pt called to see if Dr Dale heard from his doctor recently about switching medications to Sandostatin to help with the bleeding in his intestines. Derek Horne MA documented in this encounterSelect Medical Special[facility]12-21-2022 History of Present illness Narrative* Sia Hodge, PT - 04/03/2022 2:58 PM EST Episode Visit Count: 3 Therapist That Will Accept/Oversee The Plan Of Care: Zachary Hodge Start of Care Date: 03/18/22 Onset Date: 02/19/22 Plan of Care Certification Date: 03/18/22 Next Certification Due Date: 05/17/22 Patient Identified by Name and Date of : Yes REHABILITATION AND SPORTS THERAPY PHYSICAL THERAPY TREATMENT NOTE ASSESSMENT: Adina David tolerated the session with fatigue and expected muscle soreness. He demonstrated improvements in glute strength with ability to perform a modified single leg bridge. He tolerated progression of core strengthening without complaints of pain. The patient will continue to benefitfrom ongoing skilled physical therapy to progress toward set goals. PLAN FOR NEXT VISIT: general LE strengthening, balance and endurance SUBJECTIVE: Patient Reason for Visit: General Deconditioning; Bilateral Foot numbness (Right>Left); recent hernia repair States that he is doing well, notes some soreness in the left hamstring and right groin. Pain: Pain Pain Level: 1 Pain Location: Groin - Right OBJECTIVE MEASURES WITH LEVEL OF FUNCTION: No objective measures taken today TREATMENT: Therapeutic Exercise: 1: Recumbent bike x 5 min 2: incline board 3x30 3: leg press 60# 3x15 4: MH abd. 1pl 3x10 5: multifidus reach 1.5pl 5x10 6: piriformis stretch 3x30 7: modified SL bridge 3x10 8: TRX squats 2x10 9: HS curls 30# 3x10 10: butterfly stretch 3x30 Skilled Intervention: Patient was educated in proper exercise technique and purpose for exercises. Skilled judgment was provided in selection of appropriate interventions. Correct performance of therapeutic exercises was facilitated with verbal, visual, and tactile cuing. Billing KX Modifier : Therapist attests that services rendered are medically necessary. Therapeutic Exercise Treatment Minutes: 40 Total Treatment Time Minutes (timed/untimed): 45 Sia Hodge PT documented in this encounterSelect Medical Specialty [facility]12-21-2022 Miscellaneous Notes* Telephone Encounter - Essie Rivera LPN - 04/03/2022 10:52 AM EST Pharmacy [email or web address] message requesting the following refill Refill(s) Requested: Requested Prescriptions Pending Prescriptions Disp Refills zolpidem (AMBIEN) 5 mg tablet [Pharmacy Med Name: Zolpidem Tartrate 5 MG Oral Tablet] 30 tablet 0 Sig: TAKE 1 TABLET BY MOUTH ONCE DAILY AT BEDTIME FOR UP TO 30 DAYS ALLERGIES Allergen Reactions Doxycycline Intolerance Rash, diarrhea Penicillin Hives Penicillin V Potass* Other: See Comments (home) [phone] (cell) Last Office Visit Date: 03/22/2022 Last Distance Health Visit: Visit date not found Future Appointment: 06/21/2022 The patients preferred pharmacy has been captured for this encounter? yes Request is for script(s) to be escript to pharmacy. Essie Rivera LPN documented in this encounterSelect Medical Specialty [facility]12-14-2022 History of Present illness Narrative* Hortencia Gallardo MD - 03/27/2022 8:00 AM EST SMALL BOWEL DISEASES AND NUTRITION NEW ENCOUNTER Date of direct communication: 03/27/22 [x] Patient consented to video visit. 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 Also with CLL on hydroxyurea. He has improved since coming off Plavix and Eliquis. He continues to require periodic iron infusion, but has not needed a blood transfusion for several months now. Recommending Sandostatin LAR 20mg monthly to reduce bleeding related to small bowel AVM's, and continue to monitor closely. 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 FOLLOW-UP: if he needs a blood transfusion for anemia secondary to GI blood loss Hortencia Gallardo MD 03/27/22 0800 Staff Line [facility] [place] [facility] , REFERRING PROVIDER: Aly Tadeo [facility] [id number] REASON FOR REFERRAL: Small bowel bleeding HISTORY: -Long history of anemia for several years now -CAD s/p stent 3 years ago -CLL on hydroxyurea with WBC 40's, Plt 900's -CKD with solitary kidney after nephrectomy for renal cancer; baseline creat ~1.5 -Had COVID and severe anemia Hgb 4 around 04/2021 -Off Plavix, takes baby aspirin -Off Eliquis - was on for DVT around the time of femur fracture -No NSAIDs. Has gout, but doesn't take NSAIDs anymore, previously on indomethacin. -Receiving IV iron, 5 Iron infusions; 2 blood transfusions over the past year -Hgb checked monthly, most recently 03-18-2022 - ferritin 122, Hgb 11.6 -No overt bleeding visualized -Hernia incarcerated --> emergency repair Jan 2022. Notable finding was a twist in the bowel that was untwisted and did not require a resection. Had diarrhea for about 4 months before hernia repair that has resolved following surgery. -Feeling good from heart and resp perspective. Off albuterol for COPD now for several years now. Nodyspnea. No chest pain. Can walk up and down stairs without any problems when he goes to appointments. Attends [facility] [employer] [facility] class twice a week. Doing PT. -10 sigmoid resection in the past. No history of intestinal bypass or bariatric surgery. Current Outpatient Medications Medication Sig hydroxyurea (HYDREA) 500 mg capsule Take 1 capsule by mouth twice daily. zolpidem (AMBIEN) 5 mg tablet TAKE 1 TABLET BY MOUTH AT BEDTIME NEEDED FOR UP TO 30 DAYS oxyCODONE-acetaminophen (PERCOCET) 5-325 mg tablet Take 1 tablet by mouth every 6 hours as needed. GAVILYTE-G [id number] -5.86 gram suspension diphenoxylate-atropine (LOMOTIL) 2.5-0.025 mg per tablet Take 1 tablet by mouth four times daily asneeded for up to 5 days. baclofen (LIORESAL) 10 mg tablet Take 1 tablet by mouth three times daily as needed. metoprolol tartrate, short acting, (LOPRESSOR) 50 mg tablet Take 1 tablet by mouth twice daily CPAP valACYclovir (VALTREX) 1 gram One po bid for 3 days as needed for cold sores omeprazole (PRILOSEC) 40 mg capsule Take 1 capsule by mouth once daily. BABY ASPIRIN ORAL Take 81 mg by mouth once daily. magnesium oxide (MAG-OX) 400 mg (241.3 mg magnesium) tablet Take 1 tablet by mouth once daily evolocumab (REPATHA SURECLICK) 140 mg/mL pen injector Inject 1 pen (140 mg) subcutaneously every 2 weeks. albuterol HFA (PROVENTIL HFA, VENTOLIN HFA) 90 mcg/actuation inhaler INHALE 1-2 PUFFS EVERY 6 HOURSAS NEEDED FOR WHEEZING calcitriol (ROCALTROL) 0.25 mcg capsule Take 0.25 mcg by mouth once daily. ergocalciferol 50,000 unit capsule (VITAMIN D2, DRISDOL) once every month. calcium carbonate (CALCIUM ANTACID) 500 mg chew One po bid prn gastritis No current facility-administered medications for this visit. 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 glover Diverticulitis of intestine with perforation 2004 WITH FISTULA Essential hypertension FHx: colon cancer Mother GERD (gastroesophageal reflux disease) HAS GI - SLEZAK History of chickenpox History of scarlet fever History of spinal fracture 1973 L3-4 Hx of squamous cell carcinoma Hydrocele in adult Hypertriglyceridemia Hypokalemia 03/31/2019 Hypomagnesemia 03/31/2019 Leukocytosis 03/31/2019 Lipoma of back NSTEMI (non-ST elevated myocardial infarction) (HCC) Personal history of skin cancer bcc (r shoulder) 2015, scc (l lateral lower leg) 2018 Renal cancer (HCC) Stage 3 Sleep apnea CPAP PAST SURGICAL HISTORY Procedure Laterality Date BOWEL RESECTION HX 2005 Partial COLONOSCOPY 01/07/2019 hemorrhoids and diverticulosis CYSTOSCOPY 2004 2004 EGD 11/2019 x3 EGD 12/31/2018 Rhodes's, Duodenal erosions. Dr. Enio Degroot. HEMORRHOID SURGERY HX 1999 LAP NEPHRECTOMY Right 2018 DR. MCDONALD PAST SURGICAL HISTORY OF hydrocel PAST SURGICAL HISTORY OF 07/23/2020 left femur STENT PLACEMENT 2018 MARTIN LAD TONSILLECTOMY AND ADENOIDECTOMY HX ads a child Social History Tobacco Use Smoking status: Former Years: 10.00 Types: Cigars, Cigarettes Quit date: 12/21/1990 Years since quittin.2 Smokeless tobacco: Never Vaping Use Vaping Use: Never used Substance Use Topics Alcohol use: Yes Comment: very little Drug use: Never FAMILY HISTORY Problem Relation Age of Onset Cancer Mother BOWEL Heart Father Hyperlipidemia Father Diabetes Father Hypertension Father Colon Cancer No Family History REVIEW OF SYSTEMS: Complete ROS performed and negative outside of the systems documented in the HPI. INVESTIGATIONS: All available pertinent interval investigations were reviewed and were notable for: CBC Latest Ref Rng & Units 01/17/2022 02/18/2022 03/18/2022 WBC 3.70 - 11.00 k/uL 44.74(H) 35.35(H) 46.24(H) RBC 4.20 - 6.00 m/uL 3.66(L) 2.68(L) 3.54(L) HGB 13.7 - 17.5 g/dL - - - HEMOGLOBIN 13.0 - 17.0 g/dL 13.1 8.7(L) 11.6(L) HEMATOCRIT 39.0 - 51.0 % 41.1 29.0(L) 37.4(L) MCV 80.0 - 100.0 fL 112.3(H) 108.2(H) 105.6(H) MCH 26.0 - 34.0 pg 35.8(H) 32.5 32.8 MCHC 30.5 - 36.0 g/dL 31.9 30.0(L) 31.0 RDW 11.6 - 14.4 % - - - RDW-CV 11.5 - 15.0 % 14.7 14.7 17.4(H) PLATELETS 150 - 400 k/uL 926(H) 875(H) 901(H) MPV 9.0 - 12.7 fL 9.3 9.5 9.0 NEUT % (MANUAL DIFF) % - - - LYMPH % (MANUAL DIFF) % - - - MONO % (MANUAL DIFF) % - - - BASO % (MANUAL DIFF) % - - - BASO% % 0.0 0.3 0.5 ABS NEUT (ANC) 1.45 - 7.50 k/uL 8.50(H) 5.25 6.53 ABS LYM 1.00 - 4.00 k/uL - - - ABS LYMPH 1.00 - 4.00 k/uL 26.84(H) 20.92(H) 31.18(H) ABS MONO <0.87 k/uL 0.89(H) 8.76(H) 7.96(H) ABS MONO (MANUAL DIFF) <0.87 k/uL - - - ABS EOS (MANUAL DIFF) <0.46 k/uL - - - ABS EOSIN <0.46 k/uL 0.00 0.18 0.10 ABS BASO <0.11 k/uL 0.00 0.11(H) 0.22(H) ABS BASO (MANUAL DIFF) <0.11 k/uL - - - NRBC /100 WBC 0.0 0.1 0.0 META% % - - - MYELO% % - - - ANISOCYTOSIS - - - - OVALOCYTES - Few - - POLYCHROMASIA - - - - RBC FRAGMENTS None Seen - - - TARGET CELLS - - - - PLATELET ESTIMATE - Increased - - DIFF TYPE - - - - Labs 03-18-2022: Ferritin 122 CTAP : No small bowel tumor visualized. Incarcerated hernia noted. PHYSICAL EXAM: Limited with video visit. Looks comfortable, healthy and well developed. Total time of this patient encounter today was >45 mins, including: preparation for visit, direct time with the patient, examination, orders, review of records, and documentation. documented in this encounterSelect Medical [facility]ty [facility]12-12-2022 History of Present illness Narrative* Kaleigh Mueller PTA - 03/25/2022 10:14 AM EST Episode Visit Count: 2 Therapist That Will Accept/Oversee The Plan Of Care: Zachary Hodge Start of Care Date: 03/18/22 Onset Date: 02/19/22 Plan of Care Certification Date: 03/18/22 Next Certification Due Date: 05/17/22 Patient Identified by Name and Date of : Yes REHABILITATION AND SPORTS THERAPY PHYSICAL THERAPY TREATMENT NOTE ASSESSMENT: Adina David tolerated the session with no issues. He demonstrated improvements in R groinpain . The patient will continue to benefit from ongoing skilled physical therapy to progress toward set goals. PLAN FOR NEXT VISIT: general LE strengthening, balance and endurance SUBJECTIVE: Feeling pretty good very little groin pain Pain: Pain Pain Level: 1 Pain Location: Groin - Right OBJECTIVE MEASURES WITH LEVEL OF FUNCTION: TREATMENT: Therapeutic Exercise: 1: nu step L6 5 mins 2: HS stretch 3: bridges 10x3 4: standing hip ext 10x2 5: leg press60# 10x3 6: butterfuly stretch 7: hip abd [address] 10x3 8: trx squats Skilled Intervention: Skilled judgment was provided in selection of appropriate interventions. Billing KX Modifier : Therapist attests that services rendered are medically necessary. Therapeutic Exercise Treatment Minutes: 45 Total Treatment Time Minutes (timed/untimed): 45 Kaleigh Mueller PTA documented in this encounterSelect Medical Specialty [facility]12-09-2022 History of Present illness Narrative* Halle Dale MD - 03/22/2022 9:51 AM EST PROGRESS NOTE Adina David 1955 Mar 22, 2022 Chief Complaint: Mr. Adina David is here to follow up his hematological conditions (CLL, MPN, VTE, bleeding) Interval History: He is on hydrea 500 mg daily. Completed 5 doses of IV iron. No further melena, hematochezia, or other bleeding. He had US kidney and CT abdomen at [facility] to monitor his kidney cancer with negative finding. Reports bilateral toes feel numb, cold and tingling. Review of Systems Constitutional: Positive for fatigue. Negative for activity change, appetite change, chills, diaphoresis, fever and unexpected weight change. HENT: Negative for mouth sores, sore throat, trouble swallowing and voice change. Eyes: Negative for photophobia and visual disturbance. Respiratory: Negative for cough, chest tightness, shortness of breath, wheezing and stridor. Cardiovascular: Negative for chest pain, palpitations and leg swelling. Gastrointestinal: Negative for abdominal distention, abdominal pain, anal bleeding, blood in stool,constipation, diarrhea, nausea, rectal pain and vomiting. Endocrine: Negative for cold intolerance and heat intolerance. Genitourinary: Negative for decreased urine volume, difficulty urinating, dysuria, enuresis, flank pain, frequency, genital sores, hematuria and urgency. Nocturia and incontinence Musculoskeletal: Negative for arthralgias, back pain, gait problem, joint swelling, myalgias, neck pain and neck stiffness. Skin: Negative for color change, pallor, rash and wound. Neurological: Positive for numbness. Negative for dizziness, tremors, seizures, syncope, facial asymmetry, speech difficulty, light-headedness and headaches. Hematological: Negative for adenopathy. Does not bruise/bleed easily. Psychiatric/Behavioral: Negative for sleep disturbance. 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 glover Diverticulitis of intestine with perforation 2004 WITH FISTULA Essential hypertension FHx: colon cancer Mother GERD (gastroesophageal reflux disease) HAS GI - SLEZ[facility] History of chickenpox History of scarlet fever History of spinal fracture 1973 L3-4 Hx of squamous cell carcinoma Hydrocele in adult Hypertriglyceridemia Hypokalemia 03/31/2019 Hypomagnesemia 03/31/2019 Leukocytosis 03/31/2019 Lipoma of back NSTEMI (non-ST elevated myocardial infarction) (HCC) Personal history of skin cancer bcc (r shoulder) 2015, scc (l lateral lower leg) 2018 Renal cancer (HCC) Stage 3 Sleep apnea CPAP ALLERGIES Allergen Reactions Doxycycline Intolerance Rash, diarrhea Penicillin Hives Penicillin V Potass* Other: See Comments Current Outpatient Medications Medication Sig Dispense Refill hydroxyurea (HYDREA) 500 mg capsule Take 1 capsule by mouth once daily. 90 capsule 1 zolpidem (AMBIEN) 5 mg tablet TAKE 1 TABLET BY MOUTH AT BEDTIME NEEDED FOR UP TO 30 DAYS 30 tablet 0 oxyCODONE-acetaminophen (PERCOCET) 5-325 mg tablet Take 1 tablet by mouth every 6 hours as needed. GAVILYTE-G [id number] -5.86 gram suspension baclofen (LIORESAL) 10 mg tablet Take 1 tablet by mouth three times daily as needed. 90 tablet 2 metoprolol tartrate, short acting, (LOPRESSOR) 50 mg tablet Take 1 tablet by mouth twice daily 180 tablet 3 CPAP valACYclovir (VALTREX) 1 gram One po bid for 3 days as needed for cold sores 30 tablet 11 omeprazole (PRILOSEC) 40 mg capsule Take 1 capsule by mouth once daily. 90 capsule 3 BABY ASPIRIN ORAL Take 81 mg by mouth once daily. magnesium oxide (MAG-OX) 400 mg (241.3 mg magnesium) tablet Take 1 tablet by mouth once daily 90 tablet 3 evolocumab (REPATHA SURECLICK) 140 mg/mL pen injector Inject 1 pen (140 mg) subcutaneously every 2 weeks. 2 Pen 11 albuterol HFA (PROVENTIL HFA, VENTOLIN HFA) 90 mcg/actuation inhaler INHALE 1-2 PUFFS EVERY 6 HOURSAS NEEDED FOR WHEEZING 8.5 g 11 calcitriol (ROCALTROL) 0.25 mcg capsule Take 0.25 mcg by mouth once daily. ergocalciferol 50,000 unit capsule (VITAMIN D2, DRISDOL) once every month. calcium carbonate (CALCIUM ANTACID) 500 mg chew One po bid prn gastritis 60 tablet 5 docusate sodium (COLACE) 100 mg capsule TAKE 1 CAPSULE BY MOUTH 2 TIMES PER DAY diphenoxylate-atropine (LOMOTIL) 2.5-0.025 mg per tablet Take 1 tablet by mouth four times daily asneeded for up to 5 days. 20 tablet 0 cholestyramine (QUESTRAN) 4 gram packet Take 1 Packet by mouth three times daily with meals. 90 Packet 11 No current facility-administered medications for this visit. Social History: in 11/2020 from breast cancer. He lives by himself. Daughter is around, 2 grandchildren. Retired. Former smoker, quit in 1990. Family History: Mother of colon cancer at age 85. No siblings, 1 daughter, w/o malignancy. I have confirmed and edited as necessary, the PFSH and ROS obtained by myself BP 149/100 Pulse 88 Temp (Src) 96.9 (Temporal) Resp 22 Ht 5' 10 (1.78m) Wt 202 lb (91.6kg) SpO2 97% BMI 28.98 kg/(m^2). Physical Exam Constitutional: General: He is not in acute distress. Appearance: Normal appearance. He is not ill-appearing, toxic-appearing or diaphoretic. HENT: Head: Normocephalic and atraumatic. Mouth/Throat: Mouth: Mucous membranes are moist. Eyes: General: No scleral icterus. Conjunctiva/sclera: Conjunctivae normal. Cardiovascular: Rate and Rhythm: Normal rate and regular rhythm. Pulses: Normal pulses. Heart sounds: No murmur heard. No friction rub. No gallop. Pulmonary: Effort: Pulmonary effort is normal. No respiratory distress. Breath sounds: No stridor. No wheezing, rhonchi or rales. Abdominal: General: Abdomen is flat. Bowel sounds are normal. There is no distension. Palpations: Abdomen is soft. There is no mass. Tenderness: There is no abdominal tenderness. There is no guarding or rebound. Musculoskeletal: General: No swelling or deformity. Normal range of motion. Cervical back: Normal range of motion and neck supple. Right lower leg: No edema. Left lower leg: No edema. Lymphadenopathy: Cervical: No cervical adenopathy. Skin: General: Skin is warm and dry. Coloration: Skin is not jaundiced. Findings: No bruising or rash. Neurological: General: No focal deficit present. Mental Status: He is alert and oriented to person, place, and time. Psychiatric: Mood and Affect: Mood normal. Behavior: Behavior normal. Labs: Component Latest Ref Rng & Units 03/18/2022 WBC 3.70 - 11.00 k/uL 46.24 (H) RBC 4.20 - 6.00 m/uL 3.54 (L) HGB 13.7 - 17.5 g/dL Hematocrit 39.0 - 51.0 % 37.4 (L) MCV 80.0 - 100.0 fL 105.6 (H) MCH 26.0 - 34.0 pg 32.8 MCHC 30.5 - 36.0 g/dL 31.0 RDW 11.6 - 14.4 % RDW-SD 36.1 - 45.8 fl Platelet Count 150 - 400 k/uL 901 (H) MPV 9.0 - 12.7 fL 9.0 Nucleated RBC % 0.0 - 0.2 % Nucleated RBC Absolute 0.00 - 0.01 thou/cmm Seg Neutrophil % Lymphocyte % Monocyte % Eosinophil % Basophil % Atypical Lymph % Metamyelocytes % Myelocyte % Abs. Neut(Anc) 1.78 - 5.38 thou/cmm Immat Grans Abs Calc 0.00 - 0.05 thou/cmm Abs. Lymph 0.84 - 2.85 thou/cmm Abs. [place] 0.30 - 0.82 thou/cmm Abs. Eosin 0.04 - 0.54 thou/cmm Abs. Baso 0.01 - 0.08 thou/cmm Smudge Cells RBC Morphology Anisocytosis Hypochromasia Polychromasia Other Immatures % Blast and Bl # thou/cmm Macro-Ovalocyte Spherocytosis CBC Interp. Pathologist Hemoglobin 13.0 - 17.0 g/dL 11.6 (L) RDW-CV 11.5 - 15.0 % 17.4 (H) NRBC /100 WBC 0.0 Absolute nRBC <0.01 k/uL 0.02 (H) Neut% % 14.2 Abs Neut (ANC) 1.45 - 7.50 k/uL 6.53 Lymph% % 67.4 Abs Lymph 1.00 - 4.00 k/uL 31.18 (H) [place]% % 17.2 Abs [place] <0.87 k/uL 7.96 (H) Eosin% % 0.2 Abs Eosin <0.46 k/uL 0.10 Baso% % 0.5 Abs Baso <0.11 k/uL 0.22 (H) Component Latest Ref Rng & Units 02/18/2022 03/18/2022 Ferritin 30.3 - 565.7 ng/mL 13.8 (L) 122.6 Component Latest Ref Rng & Units 12/13/2021 02/18/2022 03/18/2022 Iron 41 - 186 ug/dL 46 26 (L) 64 TIBC 232 - 386 ug/dL 364 396 (H) 395 (H) Transferrin Saturation 15.0 - 57.0 % 12.6 (L) 6.6 (L) 16.2 Imaging: US kidney/bladder on 02/13/2022 Unremarkable left kidney. Right nephrectomy. CT A/P w/ IV contrast on 01/19/2022 ([facility]) Right inguinal hernia containing loops of bowel. Early small bowel obstruction is suspected, with source of obstruction at the right inguinal hernia. Follow up is recommended. Numerous borderline to slightly enlarged mesenteric lymph nodes with the right mid to lower abdomen. Follow up is recommended. Mild hydronephrosis of the left kidney with moderate to large amount of perinephritic fat stranding. There is hydroureter on the left with question caliber change of the ureter near the level of the iliac vessels versus obstruction at the level of the UVJ. No obvious renal stone demonstrated. Follow up urologic consultation suggested. CT C/A/P w/o contrast 01/23/2021 1. Enlarged lymph node paraesophageal region of the posterior mediastinum stable since prior exam. Of unclear etiology. Metastatic disease not excluded. 2. Increase in size of ovoid nodule along left hemidiaphragm. Metastatic disease is a consideration. This nodule would be difficult to percutaneously biopsy given its size and location. Follow-up is recommended. 3. New ovoid density posteriorly at the left lung base. It may represent new very small pleural effusion. Recommend attention to this on follow-up scans. 4. Extensive lymph node enlargement throughout the periportal region and throughout the mesenteric fat in the right abdomen. Not significantly changed since prior CT scan 07/19/2020. Stable pelvic and inguinal lymph node prominence. 5. Status post open reduction internal fixation proximal left femur fracture. Fracture line still visible. RLE venous duplex on 10/18/2021 Interval improvement in left lower extremity DVT, now with long segment eccentric non-occlusive thrombus involving femoral and popliteal veins. Negative study for calf DVT in the left lower extremity. Negative study for superficial thrombophlebitis in the imaged segments of the left lower extremity. Pathology: none Assessment and Plan: Mr. Adina David is a pleasant 66 yo M with multiple comorbidity including clear cell RCC, CLL, MPN, DVT, CAD, CKD III and chronic anemia, who presents to establish care. 1. Chronic macrocytic anemia - Hb baseline 8-10. Causes of chronic anemia is multifactorial, including CKDIII, GIB, iron deficiency, CLL, MPN on hydrea - following major GIB, he received multiple units of pRBC and 1 dose of 1000 mg ferric derisomaltose in 05/2021. Took ferrous sulfate BID till end of 08/2021 when self-discontinued. - Current Hb 11.6, WBC 46.24, platelet 901 - increase hydrea 500 mg once daily -> twice daily - macrocytosis is likely due to hydrea. Renal function stable. - continue monthly labs. RTC in 3 months. 2. ccRCC - diagnosed in 05/2017 - s/p right radical nephrectomy, clear cell RCC, WHO/ISUP grade 2, with renal vein invasion and renal vein thrombosis, 9 cm in size, pT3a pNx - no adjuvant treatment - CT A/P from 01/19/2022 and US kidney/bladder from 02/13/2022 were reviewed showing BARNEY. - CKDIII, renal function stable, Cr 1.51, GFR 50 3. CLL - diagnosed in 04/2017, peripheral blood flow showed a CD5-positive B-cell lymphoproliferative disorder. The immunophenotype is consistent with CLL/SLL - CT C/A/P showed mediastinal and abdominal adenopathy, stable compared scan in 07/2020, likely fromCLL/SLL process. - Su stage I. No indication to initiate treatment 4. Essential thrombocythemia - platelet count over 1000K, without clear secondary causes - CALR no variant detected; JAK2 V617F not detected; BCR-ABL not detected. MPL-a sequence change ofc.1502T>C in exon 10 was detected at approximately 18% allelic proportion; a sequence change of c. 1514G>A (p.Pem191Rdj) in exon 10 was detected at approximately 16% allelic proportion - he was started on hydrea since 04/2020, 500 mg BID - in the setting of major GIB, he had severe thrombocytosis (plt > 1000 k) put him at risk of thrombosis and bleeding due to acquired VWD. - current platelet 901K. Increase hydrea dose to 500 mg BID. Continue baby ASA. Off Eliquis. Monthly count check. RTC in 3 months. 5. DVT - 03/14/2021, DVT of indeterminate age in the common femoral vein throughout - possibly provoked, as he had left femur subtrochanteric fracture s/p internal fixation with persistent swelling postop - on Eliquis 5 mg BID since 03/2021. Dose reduce to 2.5 mg BID in 05/2021 due to renal dysfunction and GIB - d/c Eliquis in 09/2021. Doing well 6. BPH - LUTS from BPH. - PSA 8.67. - prior prostate biopsy showed no evidence of cancer. - Being followed and managed by urology 7. GIB - admitted to [facility] in 04/2021 with Hb 4.8, transfused 7 units pRBC He underwent EGD and colonoscopy were normal. Capsule endoscopy reviewed bleeding lesions. Push enteroscopy done April 2021 which showed bleeding AVMs - no active bleeding. He follows GI. - Avoid further iron supplement due to his MPN. Mild iron deficiency is expected and allowed. Some elements copied from my notes 12/20/2021, including the physical exam completed in entirety today, have been updated where appropriate. All reflect current medical decision making from today, 03/22/2022 Medical Decision Making: Problems: High: Illness/injury w/ threat to life/body function Data: Unique test result(s) reviewed: 3+ Unique test(s) ordered: 3+ Risk: Moderate: Moderate risk from testing/treatment and Drug management Medical Decision Making Level: 4 - Moderate [facility] Miscellaneous Notes* Telephone Encounter - Roland Borges Ma - 03/21/2022 9:04 AM EST Called patient and left message that their test results are viewable on [email or web address], if they have any questions to call the office. Roland Borges MA * Telephone Encounter - Roland Borges Ma - 03/21/2022 9:04 AM EST ----- Message from Loy Mcallister MD sent at 03/21/2022 9:02 AM EST ----- Notify patient PSA remains stable at 5.28. documented in this encounterSelect [facility]2022 History of Present illness Narrative* Wilton Palma RN - 03/18/2022 11:34 AM EST INSIGHT CDM TELEPHONIC OUTREACH Provider Action/FYI: CDM: CKD Spk with Pt, He denies symptoms or needs. BP 138/71, wt 195-197 lbs Contact made with patient: Yes Patient identified by name and . Discussed care with patient It s nice talking to you again. As a reminder, this is our bi-weekly check-in where I will be asking you questions about your health. This will only take a few minutes of your time. Is this a good time? Yes Symptoms What Chronic Disease(s) does the patient have: CKD Do you check your blood pressures at home? Yes, Enter readings: 138/71 Do you have new or worse shortness of breath with activity? No Do you feel like you are dehydrated for any reason, including not being able to eat or drink normally, or having less urine/much darker urine than normal for you? No Do you check your daily weight at home? Yes, Have you noticed a sudden gain in weight greater than three pounds in a day or three pounds in a week? No Are you having any other symptoms that your PCP needs to know about? No Symptom Escalation The patient required an escalation for symptom(s)? No Medications Do you have any questions about taking your medication or which medications you should be on? No Do you need any medication refills at this time, including any of the medications you might take only when needed? No Social We would like to make sure you have what you need so that your basic needs are met- including your personal safety, food, housing and medications? Would you like to speak with a social work support team assoc to help give you support for any of these needs? No It can be normal to feel anxious or down during a time like this. Would you like to talk to a mental health professional about how you have been feeling? No Closing Thank you for taking the time to talk with me today. We want to work with you to ensure that we arekeeping your medical condition(s) well-controlled and to keep you healthy and out of the doctor's office or hospital. It s also not too late for me to sign you up for automated weekly questionnaires through [employer]. This is an easy way for us to stay connected each week. Are you interested? No, I understand. We can always sign you up in the future if you change your mind. Just as a reminder, will continue to call you every other week to check in on your health. Our calls should take 10-15 minutes or less. Remember, if you have concerns in between our calls, please call your PCP's office right away. Thank you. Enter next patient outreach date for two weeks on the same day of the week as today in the Track PtOutreach and End outreach. Wilton Palma RN March 18, 2022 11:34 AM * Wilton Palma RN - 03/14/2022 10:52 AM EST INSIGHT CDM TELEPHONIC OUTREACH Provider Action/FYI: CDM: CKD Called Pt left a message to verify CKD or other symptoms or needs. 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 I am sorry I missed your call. I will reach out to you again tomorrow. (if the third call I will reach out to you again next week) Enter next patient outreach date for the following business day using the Track Pt Outreach. End outreach. Wilton Palma, RN Wilton Palma RN March 14, 2022 11:10 AM documented in this encounterSelect [facility]12-05-2022 Miscellaneous Notes* Telephone Encounter - Alison Ibarra RN - 03/18/2022 9:23 AM EST Pharmacy requesting the following refill Refill(s) Requested: Requested Prescriptions Pending Prescriptions Disp Refills hydroxyurea (HYDREA) 500 mg capsule [Pharmacy Med Name: Hydroxyurea 500 MG Oral Capsule] 66 capsule0 Sig: TAKE 3 CAPSULES BY MOUTH ONCE DAILY ALLERGIES Allergen Reactions Doxycycline Intolerance Rash, diarrhea Penicillin Hives Penicillin V Potass* Other: See Comments (home) [phone] (cell) Last Office Visit Date: 12/20/2021 Last [facility] Visit: Visit date not found Future Appointment: 03/22/2022 The patients preferred pharmacy has been captured for this encounter? yes Request is for script(s) to be escript to pharmacy. Alison Ibarra RN documented in this encounterSelect [facility]11-09-2022 Miscellaneous Notes* Telephone Encounter - Courtney Montana Pss - 02/20/2022 5:14 PM EST Referral information submitted to [facility]. Ref# [id number]. [facility] Special[facility] office will call the patient within 7-10 business days to set this appointment up. * Telephone Encounter - Juana Guerra RN - 02/20/2022 2:23 PM EST Patient requesting order for physical therapy following hernia repair surgery. documented in this encounterSelect [facility]11-04-2022 Miscellaneous Notes* Telephone Encounter - Cherri Contreras - 02/15/2022 12:24 PM EDT Andie from Dr[facility] called and wanted you to look at pt's CT. He has swollen kidney. Would like pt to see you roque. Jossy, Mari documented in this encounterSelect [facility]11-02-2022 Miscellaneous Notes* Telephone Encounter - Derek Horne MA - 02/13/2022 2:16 PM EDT Pt came in to let us know he had emergency hernia surgery 01/20/22 and blood work he stated the US showed something on his L Ureter. He wanted to keep Dr Dale in the loop. Derek Horne MA documented in this encounterSelect [facility]11-02-2022 History of Present illness Narrative* RT Arvin(R) - 02/13/2022 10:15 AM EDT Radiology Service Progress Note PATIENT NAME: Adina David DATE OF SERVICE: February 13, 2022 TIME: 10:10 AM PATIENT IDENTITY VERIFICATION COMPLETED USING TWO (2) IDENTIFIERS: Name and Date of confirmedby patient verbally. FALL SCREENING: Has the patient had 2 falls in the last year or 1 fall with injury or currently using an Ambulatory Assistive Device (Walker, Cane, Wheelchair, Crutches, etc.)? No PATIENT GENDER DATA: Male PATIENT RELEVANT IMPLANT DATA REVIEWED: Not Applicable RADIOLOGY DEPARTMENT: Ultrasound PERIPHERAL IV DATA: Not applicable SIGNED BY: RT Arvin(R) February 13, 2022 10:10 AM documented in this encounterSelect [facility]2022 History of Present illness Narrative* Louie Silva RN - 02/06/2022 10:25 AM EDT INSIGHT CDM TELEPHONIC OUTREACH Provider Action/FYI: Routed updates to Dr. Ramos- No action required Spk with Pt he reports 01/19/22 had severe Right Abd/ groin pain, squad called Pt was transported [facility]. Pt reports underwent Hernia repair on 01/20/22, Pt completed follow up Appt 02/05/[address] Dias Surgeon, completed 01/23/[address] Ramos. Pt is taking a diet well, urinating and BM without difficulty, has mild intermittent Abd pain, taking one Oxycodone 5-325 mg only at night to sleep. denies nausea and vomiting, denies fever or chills. Pt had a CT while at [facility] and is has contacted his Notch Grinder for a follow up Appt related to CT findings. Contact made with patient: Yes Patient identified by name and . Discussed care with patient It s nice talking to you again. As a reminder, this is our bi-weekly check-in where I will be asking you questions about your health. This will only take a few minutes of your time. Is this a good time? Yes Symptoms What Chronic Disease(s) does the patient have: CKD Do you check your blood pressures at home? Yes, Enter readings: 140/70 Do you have new or worse shortness of breath with activity? No Do you feel like you are dehydrated for any reason, including not being able to eat or drink normally, or having less urine/much darker urine than normal for you? No Do you check your daily weight at home? Yes, Have you noticed a sudden gain in weight greater than three pounds in a day or three pounds in a week? No Are you having any other symptoms that your PCP needs to know about? Yes Symptom Escalation The patient required an escalation for symptom(s)? No Medications Do you have any questions about taking your medication or which medications you should be on? No Do you need any medication refills at this time, including any of the medications you might take only when needed? No Social We would like to make sure you have what you need so that your basic needs are met- including your personal safety, food, housing and medications? Would you like to speak with a social work support team assoc to help give you support for any of these needs? No It can be normal to feel anxious or down during a time like this. Would you like to talk to a mental health professional about how you have been feeling? No Closing Thank you for taking the time to talk with me today. We want to work with you to ensure that we arekeeping your medical condition(s) well-controlled and to keep you healthy and out of the doctor's office or hospital. It s also not too late for me to sign you up for automated weekly questionnaires through [employer]. This is an easy way for us to stay connected each week. Are you interested? No, I understand. We can always sign you up in the future if you change your mind. Just as a reminder, will continue to call you every other week to check in on your health. Our calls should take 10-15 minutes or less. Remember, if you have concerns in between our calls, please call your PCP's office right away. Thank you. Enter next patient outreach date for two weeks on the same day of the week as today in the Track PtOutreach and End outreach. Wilton Palma RN February 06, 2022 10:25 AM documented in this encounterSelect [facility]10-13-2022 Miscellaneous Notes* Telephone Encounter - Emilee Lake Ma - 01/24/2022 2:33 PM EDT Pt contacted. Has cuff at home. Will call in next week with some numbers * Telephone Encounter - Kaylynn Hoover - 01/23/2022 11:[address] Chapa is telling the patient to go back on the Amlodipine because his 220/180 He this was due to being in too much pain from his hernia. Wants to know what Dr Ramos wants him to do? documented in this encounterSelect [facility]10-06-2022 Instructions* Patient Instructions* Loy Mcallister MD - 01/17/2022 3:33 PM EDT Its good to see you today. Please continue with a PSA every 6 months. I'll see you annually provided your symptoms are stable. documented in this encounterSelect [facility]10-[facility]-2022 History of Present illness Narrative* Loy Mcallister MD - 01/17/2022 2:57 PM EDT Images from the original note were not included. [facility] [facility] ESTABLISHED PATIENT OFFICE VISIT HISTORY OF PRESENT ILLNESS Adina David is a 66 year old male who presents with hx RCC. Elelvated PSA,ROQUE on prostate biopsy. Hydrocele. Did not tolerate oxybutynin. Caused food to taste like chalk. Urinary symptoms are actually better. Has been more compliant w/ CPAP. Creatinine remains stable. PSA 6.95 12/13/21. Patient Entered Questionnaires PROMIS Global Health PROMIS Global Health Scale 12/05/2021 12/05/2021 Physical Health Percentile 7 % 7 % Percentiles provide an indication of how the patient's score ranks in relation to the general population. Higher percentile rankings indicate better function/quality of life. 50th percentile is the average of the general population and indicates half of respondents had a worse score. Review of Systems Constitutional: Negative. HENT: Negative. Eyes: Negative. Respiratory: Negative. Cardiovascular: Negative. Gastrointestinal: Negative. Endocrine: Negative. Genitourinary: Negative. Musculoskeletal: Negative. Skin: Negative. Allergic/Immunologic: Negative. Neurological: Negative. Hematological: Negative. Psychiatric/Behavioral: Negative. The remainder of the ROS was reviewed and is negative. LAB Creatinine Date Value Ref Range Status 11/12/2021 1.82 (H) 0.73 - 1.22 mg/dL Final PSA (ng/mL) Date Value 12/13/2021 6.95 09/27/2021 6.97 09/11/2021 8.67 08/14/2021 10.35 01/19/2021 5.65 03/08/2020 4.68 06/18/2019 5.08 03/04/2019 4.51 10/12/2018 3.72 05/14/2018 5.1 07/29/2016 4.25 GLUCOSE UA (POCT) Negative 07/18/2021 BILIRUBIN UA (POCT) Negative 07/18/2021 KETONE UA (POCT) Negative 07/18/2021 SPECIFIC GRAVITY UA (POCT) 1.020 07/18/2021 HEMOGLOBIN/BLOOD UA (POCT) Negative 07/18/2021 PH UA (POCT) 7.0 07/18/2021 PROTEIN UA (POCT) Negative 07/18/2021 UROBILINOGEN UA (POCT) 0.2 07/18/2021 NITRITE UA (POCT) Negative 07/18/2021 LEUKOCYTES UA (POCT) Negative 07/18/2021 COLOR UA (POCT) Yellow 07/18/2021 CLARITY UA (POCT) Clear 07/18/2021 MEDICATIONS diphenoxylate-atropine (LOMOTIL) 2.5-0.025 mg per tablet Take 1 tablet by mouth four times daily asneeded for up to 5 days. zolpidem (AMBIEN) 5 mg tablet TAKE 1 TABLET BY MOUTH AT BEDTIME NEEDED FOR UP TO 30 DAYS cholestyramine (QUESTRAN) 4 gram packet Take 1 Packet by mouth three times daily with meals. (Patient not taking: Reported on 12/20/2021) baclofen (LIORESAL) 10 mg tablet Take 1 tablet by mouth three times daily as needed. metoprolol tartrate, short acting, (LOPRESSOR) 50 mg tablet Take 1 tablet by mouth twice daily hydroxyurea (HYDREA) 500 mg capsule TAKE 3 CAPSULES BY MOUTH ONCE DAILY CPAP valACYclovir (VALTREX) 1 gram One po bid for 3 days as needed for cold sores omeprazole (PRILOSEC) 40 mg capsule Take 1 capsule by mouth once daily. BABY ASPIRIN ORAL Take 81 mg by mouth once daily. magnesium oxide (MAG-OX) 400 mg (241.3 mg magnesium) tablet Take 1 tablet by mouth once daily evolocumab (REPATHA SURECLICK) 140 mg/mL pen injector Inject 1 pen (140 mg) subcutaneously every 2 weeks. albuterol HFA (PROVENTIL HFA, VENTOLIN HFA) 90 mcg/actuation inhaler INHALE 1-2 PUFFS EVERY 6 HOURSAS NEEDED FOR WHEEZING calcitriol (ROCALTROL) 0.25 mcg capsule Take 0.25 mcg by mouth once daily. ergocalciferol 50,000 unit capsule (VITAMIN D2, DRISDOL) once every month. 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 glover Diverticulitis of intestine with perforation 2004 WITH FISTULA Essential hypertension FHx: colon cancer Mother GERD (gastroesophageal reflux disease) HAS GI - SLEZAK History of chickenpox History of scarlet fever History of spinal fracture 1973 L3-4 Hx of squamous cell carcinoma Hydrocele in adult Hypertriglyceridemia Hypokalemia 03/31/2019 Hypomagnesemia 03/31/2019 Leukocytosis 03/31/2019 Lipoma of back NSTEMI (non-ST elevated myocardial infarction) (HCC) Personal history of skin cancer bcc (r shoulder) 2015, scc (l lateral lower leg) 2018 Renal cancer (HCC) Stage 3 Sleep apnea CPAP PAST SURGICAL HISTORY Procedure Laterality Date BOWEL RESECTION HX 2005 Partial COLONOSCOPY 01/07/2019 hemorrhoids and diverticulosis CYSTOSCOPY 2004 2004 EGD 11/2019 x3 EGD 12/31/2018 Rhodes's, Duodenal erosions. Dr. Enio Degroot. HEMORRHOID SURGERY HX 1999 LAP NEPHRECTOMY Right 2018 DR. MCDONALD PAST SURGICAL HISTORY OF hydrocel PAST SURGICAL HISTORY OF 07/23/2020 left femur STENT PLACEMENT 2018 MARTIN LAD TONSILLECTOMY AND ADENOIDECTOMY HX ads a child FAMILY HISTORY Problem Relation Age of Onset Cancer Mother BOWEL Heart Father Hyperlipidemia Father Diabetes Father Hypertension Father Colon Cancer No Family History SOCIAL HISTORY Social History Tobacco Use Smoking status: Former Years: 10.00 Types: Cigars, Cigarettes Quit date: 12/21/1990 Years since quittin.0 Smokeless tobacco: Never Vaping Use Vaping Use: Never used Substance Use Topics Alcohol use: Yes Comment: very little Drug use: Never Pulse 97 Ht 177.8 cm (5' 10 ) SpO2 98% BMI 29.27 kg/m Physical Exam Vitals and nursing note reviewed. Constitutional: Appearance: He is well-developed. HENT: Head: Normocephalic. Pulmonary: Effort: Pulmonary effort is normal. Skin: General: Skin is warm and dry. Neurological: Mental Status: He is alert and oriented to person, place, and time. Psychiatric: Behavior: Behavior normal. Thought Content: Thought content normal. Judgment: Judgment normal. IMAGING ASSESSMENT/PLAN: 1. Renal cancer, right (HCC) - ICD9: 189.0, ICD10: C64.1 (primary diagnosis) 2. Atypical small acinar proliferation of prostate - ICD9: 236.5, ICD10: N42.32 3. Elevated prostate specific antigen (PSA) - ICD9: 790.93, ICD10: R97.20 - US MSR POST-VOID RESID URINE 4. Hydrocele in adult - ICD9: 603.9, ICD10: N43.3 Battling GI bleeding recurring diarrhea. Urinary symptoms are much improved. PSA has normalized. Hold on MRI at this time. Continue the PSA for 6 months. Hydroceles largely resolved. Rectal exam reveals a large 50 to 60 g prostate the right side being more prominent than the left, no nodules. Follow-up in a year as long as he is doing well. Loy Mcallister Medical Decision Making: Problems: Moderate: 2+ stable chronic illnesses Data: Unique test result(s) reviewed: 2 Unique test(s) ordered: 1 Risk: Moderate: Moderate risk from testing/treatment Medical Decision Making Level: 4 - Moderate This note was partially created using voice recognition software and is inherently subject to errors including those of syntax and sound-alike substitutions which may escape proofreading. In such instances, original meaning may be extrapolated by contextual derivation. documented in [facility] Miscellaneous Notes* Telephone Encounter - Ashley Li Cma - 01/17/2022 9:44 AM EDT Patient called stated he was planning on having labs done and was wondering if you wanted another PSA done any time soon.Please advise. Ashley Li Cma documented in this encounterSelect [facility]-05-2022 Miscellaneous Notes* Telephone Encounter - Pratibha Haque MA - 01/16/2022 9:27 AM EDT Separate [employer] Line message sent to [facility]. Added in other message that this picture was sent in. documented in this encounterSelect [facility]09-15-2022 Miscellaneous Notes* Telephone Encounter - Quyen Thomason Cma - 12/27/2021 2:50 PM EDT Called patient and left a voicemail notifying patient that I would send him a message in [employer] with results. Quyen Thomason Cma * Telephone Encounter - Ashley Li Cma - 12/26/2021 3:21 PM EDT Called patient to advise of psa results, no answer, I have left message for return call. Ashley Li Cma * Telephone Encounter - Ashley Li Cma - 12/26/2021 3:21 PM EDT ----- Message from Loy Mcallister MD sent at 12/26/2021 12:50 PM EDT ----- Notify patient PSA stable at 6.95 documented in this encounterSelect [facility]-07-2022 History of Present illness Narrative* Louie Silva RN - 12/19/2021 3:50 PM EDT INSIGHT CDM TELEPHONIC OUTREACH Provider Action/FYI: Spk with Pt he reports intermittent diarrhea for 1 mth, he has been ordered Questran. Pt instructedto drink adequate water/ fluid intake, he verbalized understanding. Pt noted he feels he is hydrating well. Contact made with patient: Yes Patient identified by name and . Discussed care with patient It s nice talking to you again. As a reminder, this is our bi-weekly check-in where I will be asking you questions about your health. This will only take a few minutes of your time. Is this a good time? Yes Symptoms What Chronic Disease(s) does the patient have: CKD Do you check your blood pressures at home? No Do you have new or worse shortness of breath with activity? No Do you feel like you are dehydrated for any reason, including not being able to eat or drink normally, or having less urine/much darker urine than normal for you? No Do you check your daily weight at home? No Are you having any other symptoms that your PCP needs to know about? No Symptom Escalation The patient required an escalation for symptom(s)? No Medications Do you have any questions about taking your medication or which medications you should be on? No Do you need any medication refills at this time, including any of the medications you might take only when needed? No Social We would like to make sure you have what you need so that your basic needs are met- including your personal safety, food, housing and medications? Would you like to speak with a social work support team assoc to help give you support for any of these needs? No It can be normal to feel anxious or down during a time like this. Would you like to talk to a mental health professional about how you have been feeling? No Closing Thank you for taking the time to talk with me today. We want to work with you to ensure that we arekeeping your medical condition(s) well-controlled and to keep you healthy and out of the doctor's office or hospital. It s also not too late for me to sign you up for automated weekly questionnaires through [employer]. This is an easy way for us to stay connected each week. Are you interested? No, I understand. We can always sign you up in the future if you change your mind. Just as a reminder, will continue to call you every other week to check in on your health. Our calls should take 10-15 minutes or less. Remember, if you have concerns in between our calls, please call your PCP's office right away. Thank you. Enter next patient outreach date for two weeks on the same day of the week as today in the Track PtOutreach and End outreach. Wilton Palma RN December 19, 2021 3:50 PM documented in this encounterSelect Medical [facility]08-31-2022 History of Present illness Narrative* Wilbert Watkins MD - 12/12/2021 4:00 PM EDT VIRTUAL VISIT PROGRESS NOTE This is a virtual visit using [employer] video visit. It required patient-provider interaction for themedical decision making as documented below. Adina David is a 66 year old male seen for 66-year-old male who is referred for an enteroscopy. Review of records indicates that an upper endoscopy was performed in August 2017 with a indication being anemia. A soft pedunculated lesion was noted in the third portion of the duodenum which was felt to be a lipoma. The colonoscopy revealed a suspected AVM of the cecal base which was nonbleeding. Additionally mention was made of a anastomosis at the rectosigmoid junction. Admitted to the hospital with presyncope. Admitted to [facility], transfused 7 units pRBC, Hgb of 4 By his report, underwent EGD and colonoscopy were normal. Capsule endoscopy, thought they saw bleeding lesions Push enteroscopy done April: bleeding AVMs Still requiring transfusions: two units in October No melena or hematochezia There is no chest pain or shortness of breath. He does experience some throat discomfort and his cardiology advanced practitioner wishes to have a stress test performed. Past medical history: Iron deficiency anemia, angiodysplasia of colon without hemorrhage, benign lipomatous neoplasm of duodenum, hypertension, COPD, hyperlipidemia, gastroesophageal reflux disease, nicotine dependence, diverticulitis, obstructive sleep apnea, acute posthemorrhagic anemia, unspecified iron deficiency anemia, history of myocardial infarction, chronic lymphocytic leukemiaof B-cell type, benign prostatic hyperplasia, obesity Past surgical history: History of intestinal bypass, status post right nephrectomy for neoplasm, status post sigmoid colectomy for colovesical fistula, Medications: Eliquis, Lipitor, valacyclovir, Drisdol, metoprolol, Plavix, aspirin 81 mg, magnesium oxide, Hydrea, Repatha, ProAir, Tricor, amlodipine, omeprazole, Allergy: Penicillin, Statins Family history: Heart attack, colon cancer, Social history: 1 standard drink twice a week, no tobacco use HISTORY REVIEWED (electronic chart updated): PAST MEDICAL HISTORY Diagnosis Date Adenomatous duodenal polyp Anemia Arthritis 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 glover Diverticulitis of intestine with perforation 2004 WITH FISTULA Essential hypertension FHx: colon cancer Mother GERD (gastroesophageal reflux disease) HAS GI - SLEZAK History of chickenpox History of scarlet fever History of spinal fracture 1973 L3-4 Hx of squamous cell carcinoma Hydrocele in adult Hypertriglyceridemia Hypokalemia 03/31/2019 Hypomagnesemia 03/31/2019 Leukocytosis 03/31/2019 Lipoma of back NSTEMI (non-ST elevated myocardial infarction) (HCC) Personal history of skin cancer bcc (r shoulder) 2015, scc (l lateral lower leg) 2018 Renal cancer (HCC) Stage 3 Sleep apnea CPAP PAST SURGICAL HISTORY Procedure Laterality Date BOWEL RESECTION HX 2004 Partial COLONOSCOPY 01/07/2019 hemorrhoids and diverticulosis CYSTOSCOPY 2004 2005 EGD 11/2019 x3 EGD 12/31/2018 Rhodes's, Duodenal erosions. Dr. Enio Degroot. HEMORRHOID SURGERY HX 1999 LAP NEPHRECTOMY Right 2018 DR. MCDONALD PAST SURGICAL HISTORY OF hydrocel PAST SURGICAL HISTORY OF 07/23/2020 left femur STENT PLACEMENT 2018 MARTIN LAD TONSILLECTOMY AND ADENOIDECTOMY HX ads a child FAMILY HISTORY Problem Relation Age of Onset Cancer Mother BOWEL Heart Father Hyperlipidemia Father Diabetes Father Hypertension Father Colon Cancer No Family History Social History Tobacco Use Smoking status: Former Years: 10.00 Types: Cigars, Cigarettes Quit date: 12/21/1990 Years since quittin.9 Smokeless tobacco: Never Vaping Use Vaping Use: Never used Substance Use Topics Alcohol use: Yes Comment: very little Drug use: Never Current Outpatient Medications Medication Sig cholestyramine (QUESTRAN) 4 gram packet Take 1 Packet by mouth three times daily with meals. baclofen (LIORESAL) 10 mg tablet Take 1 tablet by mouth three times daily as needed. metoprolol tartrate, short acting, (LOPRESSOR) 50 mg tablet Take 1 tablet by mouth twice daily zolpidem (AMBIEN) 5 mg tablet TAKE 1 TABLET BY MOUTH AT BEDTIME NEEDED FOR UP TO 30 DAYS hydroxyurea (HYDREA) 500 mg capsule TAKE 3 CAPSULES BY MOUTH ONCE DAILY CPAP valACYclovir (VALTREX) 1 gram One po bid for 3 days as needed for cold sores omeprazole (PRILOSEC) 40 mg capsule Take 1 capsule by mouth once daily. BABY ASPIRIN ORAL Take 81 mg by mouth once daily. magnesium oxide (MAG-OX) 400 mg (241.3 mg magnesium) tablet Take 1 tablet by mouth once daily evolocumab (REPATHA PAZICK) 140 mg/mL pen injector Inject 1 pen (140 mg) subcutaneously every 2 weeks. albuterol HFA (PROVENTIL HFA, VENTOLIN HFA) 90 mcg/actuation inhaler INHALE 1-2 PUFFS EVERY 6 HOURSAS NEEDED FOR WHEEZING calcitriol (ROCALTROL) 0.25 mcg capsule Take 0.25 mcg by mouth once daily. ergocalciferol 50,000 unit capsule (VITAMIN D2, DRISDOL) once every month. calcium carbonate (CALCIUM ANTACID) 500 mg chew One po bid prn gastritis No current facility-administered medications for this visit. ALLERGIES Allergen Reactions Doxycycline Intolerance Rash, diarrhea Penicillin Hives ASSESSMENT PLAN: 66-year-old male with a history of chronic GI bleeding. From what we can gather from the electronicmedical records as well as from Mr. David, a capsule endoscopy performed at [facility] revealed small bowel angioectasias. Some of these were treated with a push enteroscopy. However there still is a transfusion requirement. We discussed utilizing either a single balloon enteroscope whichis currently available or double-balloon platform which will become available in late December / early January. Our decision will be the upcoming blood count which will be obtained tomorrow. If he is still requiring transfusions we may push ahead with the single balloon platform. He will need PACCevaluation as well as clearance from his employee communications coordinator particularly if the stress test is indicated. Mr. David I will discuss this further early next week. I spent a total of 40 minutes on the date of the service which included preparing to see the patient and [id number] patient care documented in this encounterSelect [facility]08-26-2022 History of Present illness Narrative* Sia Hodge, PT - 12/07/2021 2:43 PM EDT Episode Visit Count: 26 Therapist That Will Oversee The Plan Of Care: Zachary Hodge Start of Care Date: 07/06/21 Plan of Care Certification Date: 10/09/21 Next Certification Due Date: 12/08/21 Patient Identified by Name and Date of : Yes REHABILITATION AND SPORTS THERAPY PHYSICAL THERAPY TREATMENT NOTE ASSESSMENT: Adina David tolerated the session with fatigue and expected muscle soreness. He demonstrated improvements in endurance tolerating increased reps per set. Mild fatigue noted but required only minimal rest breaks. The patient will continue to benefit from ongoing skilled physical therapy toprogress toward set goals. PLAN FOR NEXT VISIT: Follow up with PT SUBJECTIVE: Overall is doing well. Neck has been hurting but Dr. Ramos gave him baclofen which has seemed to help. Pain: Pain Pain Level: 0 Pain Location: Hip - Left Additional Pain Information : Location 2 Pain Level 2: 3 Pain Location 2: Neck - Right OBJECTIVE MEASURES WITH LEVEL OF FUNCTION: TREATMENT: Therapeutic Exercise: 1: Recumbent bike x 7 min (concurrent w/info gathering) 2: incline stretch 3 x 30 sec-gastroc and soleus 3: MH abd 2pl 2x15 4: --flex 2pl 2x15 6: DL leg press 100# 2x15 7: SL heel raise 2x10, DBL x 10 8: HS curls 40# 3x10 9: STS x 10 on black pads Skilled Intervention: Patient was educated in proper exercise technique and purpose for exercises. Skilled judgment was provided in selection of appropriate interventions. Correct performance of therapeutic exercises was facilitated with verbal, visual, and tactile cuing. Billing KX Modifier : Therapist attests that services rendered are medically necessary. Therapeutic Exercise Treatment Minutes: 40 Total Treatment Time Minutes (timed/untimed): 45 Sia Hodge PT documented in this encounterSelect Medical [facility]08-23-2022 Miscellaneous Notes* Telephone Encounter - Karina Pina - 12/04/2021 12:35 PM EDT Patient called our office today as he said that he was [facility] a scope forhis bleeding lesions. I asked him more information on if he needs to see a surgeon or a GI doctor. He wasn't sure. He will call Dr. Morrow's office to find out. I provided him our office number if heneeds surgery evaluation and provided him the GI Scheduling line if he needs GI. documented in this encounterSelect Medical [facility]08-22-2022 History of Present illness Narrative* Ulises Ramos DO - 12/03/2021 2:16 PM EDT Here for chronic diarrhea, GI doc going to get him scope at [facility] but the diarrhea persists. 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 glover Diverticulitis of intestine with perforation 2004 WITH FISTULA Essential hypertension FHx: colon cancer Mother GERD (gastroesophageal reflux disease) HAS GI - SLEZAK History of chickenpox History of scarlet fever History of spinal fracture 1972 L3-4 Hx of squamous cell carcinoma Hydrocele in adult Hypertriglyceridemia Hypokalemia 03/31/2019 Hypomagnesemia 03/31/2019 Leukocytosis 03/31/2019 Lipoma of back NSTEMI (non-ST elevated myocardial infarction) (HCC) Personal history of skin cancer bcc (r shoulder) 2015, scc (l lateral lower leg) 2018 Renal cancer (HCC) Stage 3 Sleep apnea CPAP PAST SURGICAL HISTORY Procedure Laterality Date BOWEL RESECTION HX 2005 Partial COLONOSCOPY 01/07/2019 hemorrhoids and diverticulosis CYSTOSCOPY 2004 2004 EGD 11/2019 x3 EGD 12/31/2018 Rhodes's, Duodenal erosions. Dr. Enio Degroot. HEMORRHOID SURGERY HX 1999 LAP NEPHRECTOMY Right 2018 DR. 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 MON - FRI DRINKS 6 CUPS/DAY LIVES AT HOME WITH NO PETS NOREEN DAUGHTER = NO GRANDKIDS YET RIDE HORSES Allergies: ALLERGIES Allergen Reactions Doxycycline Intolerance Rash, diarrhea Penicillin Hives Medications: metoprolol tartrate, short acting, (LOPRESSOR) 50 mg tablet Take 1 tablet by mouth twice daily zolpidem (AMBIEN) 5 mg tablet TAKE 1 TABLET BY MOUTH AT BEDTIME NEEDED FOR UP TO 30 DAYS hydroxyurea (HYDREA) 500 mg capsule TAKE 3 CAPSULES BY MOUTH ONCE DAILY CPAP valACYclovir (VALTREX) 1 gram One po bid for 3 days as needed for cold sores omeprazole (PRILOSEC) 40 mg capsule Take 1 capsule by mouth once daily. BABY ASPIRIN ORAL Take 81 mg by mouth once daily. magnesium oxide (MAG-OX) 400 mg (241.3 mg magnesium) tablet Take 1 tablet by mouth once daily evolocumab (REPATHA SURECLICK) 140 mg/mL pen injector Inject 1 pen (140 mg) subcutaneously every 2 weeks. albuterol HFA (PROVENTIL HFA, VENTOLIN HFA) 90 mcg/actuation inhaler INHALE 1-2 PUFFS EVERY 6 HOURSAS NEEDED FOR WHEEZING fenofibrate nanocrystallized (TRICOR) 145 mg tablet Take 1 tablet by mouth once daily calcitriol (ROCALTROL) 0.25 mcg capsule Take 0.25 mcg by mouth once daily. ergocalciferol 50,000 unit capsule (VITAMIN D2, DRISDOL) once every month. calcium carbonate (CALCIUM ANTACID) 500 mg chew One po bid prn gastritis colesevelam (WELCHOL) 625 mg tablet Take 3 tablets by mouth twice daily before meals. apixaban (ELIQUIS) 5 mg tab(s) Take 0.5 tablets by mouth twice daily. (Patient not taking: Reportedon 10/22/2021 ) aspirin, enteric coated (ASPIRIN, ENTERIC COATED) 325 mg EC tablet Take 1 tablet by mouth twice daily for 21 days. Problem List: ACTIVE PROBLEM LIST Deng (Acute Kidney Injury) ([facility]) - 01/07/2019 (D priority) Vitamin D Deficiency - 07/17/2021 Obesity, Class I, Bmi 30-34.9 - 05/28/2021 Acute Blood Loss Anemia - 05/16/2021 Covid-19 Virus Infection - 05/16/2021 Severe Protein-Calorie Malnutrition ([facility]) - 05/09/2021 Severe Anemia - 05/02/2021 Cira (Obstructive Sleep Apnea) - 05/01/2021 Deep Vein Thrombosis (Dvt) of Femoral Vein of Left Lower Extremity ([facility]) - 03/14/2021 Leg Swelling - 03/14/2021 Leukocytosis - 03/31/2019 Essential Thrombocythemia ([facility]) - 03/31/2019 Ckd (Chronic Kidney Disease) Stage 3, Gfr 30-59 Ml/Min ([facility]) - 03/31/2019 Hypertriglyceridemia 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 S/P Drug Eluting Coronary Stent Placement - 11/25/2018 Stage 2 Chronic Kidney Disease - 11/10/2018 Nstemi (Non-St Elevated Myocardial Infarction) ([facility]) - 10/24/2018 Bph (Benign Prostatic Hyperplasia) - 10/05/2018 History of Right Nephrectomy - 10/05/2018 Nocturia - 03/19/2018 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 Cll (Chronic Lymphocytic Leukemia) ([facility]) - 06/13/2017 Iron Deficiency Anemia - 06/13/2017 Renal Cancer, Right ([facility]) - 04/29/2017 Essential Hypertension Multiple Lipomas Gerd (Gastroesophageal Reflux Disease) Comment: HAS GI - TRACE H/O Resection of Large Bowel - 04/14/2004 Comment: DR. SUAREZ Review of Systems Physical Exam Cardiovascular: Rate and Rhythm: Normal rate and regular rhythm. Pulses: Normal pulses. Heart sounds: Normal heart sounds. Pulmonary: Effort: Pulmonary effort is normal. Breath sounds: Normal breath sounds. Musculoskeletal: General: Tenderness: spasm cervical. Neurological: Mental Status: He is alert. BP 136/78 (BP Site: Right Arm, BP Position: Sitting, BP Cuff Size: Large Adult) Pulse 86 Temp 36.4 C (97.5 F) (Tympanic) Wt 91.7 kg (202 lb 1.6 oz) SpO2 97% BMI 29.00 kg/m ASSESSMENT/PLAN:ASSESSMENT/PLAN: 1. Chronic diarrhea - ICD9: 787.91, ICD10: K52.9 (primary diagnosis) - COLESEVELAM 625 MG TABLET 2. Neck pain - ICD9: 723.1, ICD10: M54.2 Ulises Ramos DO 1. Chronic diarrhea - ICD9: 787.91, ICD10: K52.9 - COLESEVELAM 625 MG TABLET Ulises Ramos DO documented in this encounterSelect [facility] History of Present illness Narrative* Sia Hodge PT - 12/01/2021 10:58 AM EDT Episode Visit Count: 25 Therapist That Will Oversee The Plan Of Care: Zachary Hodge Start of Care Date: 07/06/21 Plan of Care Certification Date: 10/09/21 Next Certification Due Date: 12/08/21 Patient Identified by Name and Date of : Yes REHABILITATION AND SPORTS THERAPY PHYSICAL THERAPY TREATMENT NOTE ASSESSMENT: Adina David tolerated the session with fatigue and expected muscle soreness. He demonstrated difficulty with overall endurance requiring 1-2 seated rest breaks throughout. Notes he is now able to walk 1/2 of a mile with one rest break. Will plan to transition patient to an independent strengthening program next treatment session. The patient will continue to benefit from ongoing skilledphysical therapy to progress toward set goals. PLAN FOR NEXT VISIT: Follow up with PT SUBJECTIVE: Patient Reason for Visit: L LE and deconditioning Doing ok, endurance is most of the issue. Pain: Pain Pain Level: 0 Pain Location: Hip - Left OBJECTIVE MEASURES WITH LEVEL OF FUNCTION: TREATMENT: Therapeutic Exercise: 1: Recumbent bike x 7 min (concurrent w/info gathering) 2: incline stretch 3 x 30 sec-gastroc and soleus 3: MH abd 2pl 2x15 4: --flex 2pl 2x15 6: SL leg press 50# 3x10 7: SL heel raise 2x10, DBL x 10 8: HS curls 40# 3x10 9: STS x 10 on black pads Skilled Intervention: Patient was educated in proper exercise technique and purpose for exercises. Skilled judgment was provided in selection of appropriate interventions. Correct performance of therapeutic exercises was facilitated with verbal, visual, and tactile cuing. Billing KX Modifier : Therapist attests that services rendered are medically necessary. Therapeutic Exercise Treatment Minutes: 40 Total Treatment Time Minutes (timed/untimed): 45 Sia Hodge PT documented in this encounterSelect Medical [facility]ty [facility]08-11-2022 Miscellaneous Notes* Telephone Encounter - Alison Ibarra RN - 11/22/2021 10:21 AM EDT Pharmacy requesting the following refill Refill(s) Requested: Requested Prescriptions Pending Prescriptions Disp Refills zolpidem (AMBIEN) 5 mg tablet [Pharmacy Med Name: Zolpidem Tartrate 5 MG Oral Tablet] 30 tablet 0 Sig: TAKE 1 TABLET BY MOUTH AT BEDTIME NEEDED FOR UP TO 30 DAYS ALLERGIES Allergen Reactions Doxycycline Intolerance Rash, diarrhea Penicillin Hives (home) [phone] (cell) Last Office Visit Date: 09/19/2021 Last Distance Health Visit: Visit date not found Future Appointment: 12/20/2021 The patients preferred pharmacy has been captured for this encounter? yes Request is for script(s) to be escript to pharmacy. Alison Ibarra RN documented in this encounterSelect Medical [facility]ty [facility]08-08-2022 Miscellaneous Notes* Telephone Encounter - Derek Horne MA - 11/19/2021 2:22 PM EDT Pt informed. Derek Horne MA * Telephone Encounter - Halle Dale MD - 11/19/2021 12:22 PM EDT Ok to keep taking B12 * Telephone Encounter - Derek Horne MA - 11/19/2021 10:56 AM EDT Pt was wanting to know if he should keep taking vitamin B-12 pills, and what can he expect when trying to get to a normal hemoglobin range he states he's currently at 9 which is good for him. Derek Horne MA documented in this encounterSelect Medical Specialty [facility]08-08-2022 History of Present illness Narrative* Kaleigh Mueller PTA - 11/19/2021 10:09 AM EDT Episode Visit Count: 23 Therapist That Will Oversee The Plan Of Care: Zachary Hodge Start of Care Date: 07/06/21 Plan of Care Certification Date: 10/09/21 Next Certification Due Date: 12/08/21 Patient Identified by Name and Date of : Yes REHABILITATION AND SPORTS THERAPY PHYSICAL THERAPY TREATMENT NOTE ASSESSMENT: Adina David tolerated the session with fatigue. He demonstrated difficulty with some tailnbone pain due to a slip in hot tubover weekend. . The patient will continue to benefit from ongoingskilled physical therapy to progress toward set goals. PLAN FOR NEXT VISIT: strength and conditioning, balance SUBJECTIVE: Tired sore slipped in hot tub this Pain: Pain Pain Level: 0 Pain Location: Hip - Left OBJECTIVE MEASURES WITH LEVEL OF FUNCTION: Soresness in back today as well as tailbone did well with the side bridges TREATMENT: Therapeutic Exercise: 1: Recumbent bike x 7 min 2: incline stretch 3 x 30 sec (gastroc/soleus) 3: MH abd 2pl 3x 10 4: --flex 2pl 3x 10 5: side planks 10x2 celso. 6: SL leg press 50# 3x10 (R/L) 7: SL heel raise 3x10 8: HS curls 40# 3x10 9: STS x 10 (on black pads) 10: bridges 10x2 Skilled Intervention: Skilled judgment was provided in selection of appropriate interventions. Billing Therapeutic Exercise Treatment Minutes: 45 Total Treatment Time Minutes (timed/untimed): 45 Kaleigh Mueller PTA documented in this encounterSelect Medical Specialty [facility]08-04-2022 History of Present illness Narrative* Louie Silva RN - 11/15/2021 3:14 PM EDT INSIGHT CDM TELEPHONIC OUTREACH Provider Action/FYI: Call to Pt left a message to verify CKD or other symptoms or concerns. Contact made with patient: No - Left message Hello my name is Wilton Palma RN your Loading Shovel Oiler [facility] the [facility] I am callingtoday for your bi-weekly check in. I am sorry I missed your call. I will reach out to you again. (if the third call I will reach out to you again next week) Enter next patient outreach date for the following business day using the Track Pt Outreach. End outreach. Wilton Palma RN November 15, 2021 3:14 PM * Louie Silva RN - 11/13/2021 4:08 PM EDT INSIGHT CDM TELEPHONIC OUTREACH Provider Action/FYI: Call to Pt left a message to verify CKD or other symptoms or concerns. 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 I am sorry I missed your call. I will reach out to you again tomorrow. (if the third call I will reach out to you again next week) Enter next patient outreach date for the following day using the Track Pt Outreach. End outreach. Wilton Palma RN November 13, 2021 4:08 PM documented in this encounterSelect Medical Specialty [facility]08-01-2022 History of Present illness Narrative* Heaven Espinosashruti, TOP LIFT SCOURER - 11/12/2021 10:54 AM EDT Episode Visit Count: 21 Therapist That Will Oversee The Plan Of Care: Zachary Hodge Start of Care Date: 07/06/21 Plan of Care Certification Date: 10/09/21 Next Certification Due Date: 12/08/21 Patient Identified by Name and Date of : Yes REHABILITATION AND SPORTS THERAPY PHYSICAL THERAPY TREATMENT NOTE ASSESSMENT: Adina David tolerated the session with some shortness of breath, decreased endurance and fatigue. He demonstrated difficulty with strength, endurance and SLS. The patient will continue to benefit from ongoing skilled physical therapy to progress toward set goals. PLAN FOR NEXT VISIT: strength and conditioning, balance SUBJECTIVE: Patient reports balance was good over trip. He did well on trip. Swelling in B ankles while there. Pain in R ankle after issue with compression hose. Pain: Pain Pain Level: 0 Pain Location: Hip - Left OBJECTIVE MEASURES WITH LEVEL OF FUNCTION: Requires occasional rest breaks. TREATMENT: Therapeutic Exercise: 1: Nustep L4 x 10 min concurrent with information gathering 2: incline stretch 3 x 30 sec 3: MH abd 2pl 2x 10 4: --flex 2pl 2x 10 6: Leg press 85# 10 x 3 7: MH heel raises 10 x3 9: STS x 10 Skilled Intervention: Skilled judgment was provided in selection of appropriate interventions. Neuromuscular Re-Education: 1: // bars: amb over lg river stones 2: -SLS > 10 sec with min sway 3: -tandem stance 4: -alt toe taps to 6 step Skilled Intervention: Skilled judgment used to assess appropriate program for balance and coordination activity. Billing KX Modifier : Therapist attests that services rendered are medically necessary. Therapeutic Exercise Treatment Minutes: 25 Neuromuscular Re-Education Treatment Minutes: 15 Total Treatment Time Minutes (timed/untimed): 45 Heaven Shelley PTA documented in this encounterSelect Medical Specialty [facility]07-27-2022 Miscellaneous Notes* Telephone Encounter - Kendy Burns MA - 11/07/2021 1:49 PM EDT I called patient regarding message. He has seen new PCP regarding issue and has an appt with GI andPCP within the next few weeks. I advised with the issue and possibility of dehydration along with his other medical issues he should be evaluated for possible dehydration as well at ER. Patient states he isn't even in [place] at the present time. * Telephone Encounter - Kendy Burns MA - 11/07/2021 1:48 PM EDT ----- Message from Sierra Concepcion sent at 11/07/2021 12:31 PM EDT ----- Regarding: Medicine/Richard/Diarrhea daily for 3 weeks Subject Line Format: Medicine / [Provider Name] / [Issue] Patient has been identified by name and Date of (Y/N): Y Patient: Adina David Date of : 1955 Provider for this encounter: Ulises Ramos DO Reason for the call/escalation: Pt is established with Dr. Ramos as his pcp. Pt states he is established at [place] with Dr. Roman and that Dr. Roman is his back up because Dr. Ramos is booked [facility] out. Pt wants to see Dr. Roman for chronic diarrhea for 3 weeks. Was Patient Referred to 911/Seek Emergency Treatment (Y/N): NA Did Patient Agree (Y/N): NA Was An Attempt Made To Transfer The Patient To The Office (Y/N): NA Were You Able To Reach Someone At The Office (Y/N): NA If Yes - Patient Was Transferred To (Caregivers Name): NA If No - Which [facility] Leadership Policy Service Coordinator Did You Speak With Regarding This Patient: NA Was an appointment scheduled (Y/N): [id number] denied due to symptoms Reason patient was requesting visit (RFV/signs and symptoms/diagnosis) : Chronic diarrhea Person calling if other than patient: patient Return call to if other than patient: patient Best contact number: [phone] Thank you, Sierra Concepcion November 07, 2021 12:32 PM documented in this encounterSelect Medical [facility]07-15-2022 History of Present illness Narrative* Louie Silva RN - 2021 12:18 PM EDT PRIMARY CARE COORDINATION QUICK NOTE Provider Action/FYI Opened in error Patient identified by name and date . Wilton Palma RN 2021 12:18 PM documented in this encounterSelect Medical [facility]07-15-2022 History of Present illness Narrative* Louie Silva RN - 2021 12:14 PM EDT INSIGHT CDM TELEPHONIC OUTREACH Provider Action/FYI: Call to Pt left a message to verify CKD or other symptoms or concerns. 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 I am sorry I missed your call. I will reach out to you again tomorrow. (if the third call I will reach out to you again next week) Enter next patient outreach date for the following business day using the Track Pt Outreach. End outreach. Wilton Palma RN 2021 12:14 PM documented in this encounterSelect Medical [facility]07-15-2022 Miscellaneous Notes* Telephone Encounter - Alison Ibarra RN - 2021 8:27 AM EDT Pharmacy requesting the following refill Refill(s) Requested: Pending Prescriptions Disp Refills HYDROXYUREA 500 MG CAPSULE 180 capsule 0 Sig: TAKE 3 CAPSULES BY MOUTH ONCE DAILY JEOVANNY: Yes ALLERGIES Allergen Reactions Doxycycline Intolerance Rash, diarrhea Penicillin Hives (home) [phone] (cell) Last Office Visit Date: 09/19/2021 Last [facility] Visit: Visit date not found Future Appointment: 12/20/2021 The patients preferred pharmacy has been captured for this encounter? yes Request is for script(s) to be escript to pharmacy. Alison Ibarra RN documented in this encounterSelect Medical [facility]07-15-2022 Miscellaneous Notes* Telephone Encounter - Pratibha Barba LPN - 2021 7:00 AM EDT Patient's request for medication is as follows: Refused Prescriptions Disp Refills amLODIPine (NORVASC) 10 mg tablet [Pharmacy Med Name: amLODIPine Besylate 10 MG Oral Tablet] 90 tablet 0 Sig: Take 1 tablet by mouth once daily JEOVANNY: No Refused By: PRATIBHA BARBA Reason for Refusal: A Refill not appropriate Reason for Refusal Comment: Discontinued 09/12/2021 by (PCP). Prescription(s) as above. Please process accordingly. Pratibha Barba LPN documented in this encounterSelect Medical [facility]07-14-2022 Miscellaneous Notes* Telephone Encounter - Courtney Cabezas - 10/25/2021 1:24 PM EDT Referral information submitted to [facility]. Ref# [id number]. [facility] office will call the patient within 7-10 business days to set this appointment up. * Addendum Note - Ulises Ramos DO - 10/25/2021 11:46 AM EDT Addended by: ULISES RAMOS on: 10/25/2021 11:46 AM Modules accepted: Orders * Telephone Encounter - Bernarda Sarah RN - 10/25/2021 11:01 AM EDT He would like a referral to a sleep specialist. Please order and send to schedulers. FYI also wanted to let you know he will be having a blood transfusion tomorrow. * Telephone Encounter - Tamika Garcia LPN - 10/25/2021 10:40 AM EDT Attempted to reach patient no answer. * Telephone Encounter - Ulises Ramos DO - 10/24/2021 12:32 PM EDT Ask if he as ever tried remeron? I can try that one if he has not. I dont write ambien at all so ifhe needs that I can send him to sleep specialist. * Telephone Encounter - Thi Pavon Ma - 10/23/2021 5:10 PM EDT Pt said stable is one thing but feeling better and having enough blood is better. Also, said that Trazadone does not work and since pcp does not prescribe Ambien how is he supposed to sleep? He was asking about zolpidem but I advised that it was just the generic form of ambien. * Telephone Encounter - Ulises Ramos DO - 10/23/2021 1:34 PM EDT I dont prescribe ambien at all. I can try him on trazodone if he likes. The hemoglobin is stable and the rest of the labs look good so far * Telephone Encounter - Ulises Ramos DO - 10/23/2021 1:33 PM EDT Stop the fenofibrate * Telephone Encounter - Guerline Cabezas - 10/23/2021 8:30 AM EDT Per patient, he takes the 145 of the Fenofibrate. Patient states that his triglycerides are down to 20 or less. Patient is taking a RX called, [facility]. Patient states he has less cholesterol then what you are born with right now. Patient is asking if Dr. Ramos thinks he can cut back on the Fenofibrate? Patient also states he is having trouble sleeping. Patient is requesting Zolpidem. Per patient, he looked into his insurance and Medicare does pay for RX. Patient states that he previously have been prescribed RX by his oncologist. Patient states the oncologist would not increase RX to 10mg, patient states that he previously took 5mg. Patient states that his oncologist told patient to discuss hisinsomnia with his PCP. Patient also requesting lab results. Patient states he forgot to discuss these concerns/questions at his appointment yesterday. documented in this encounterSelect Medical [facility]07-14-2022 Miscellaneous Notes* Telephone Encounter - Bernarda Sarah RN - 10/25/2021 11:03 AM EDT Patient notified. * Telephone Encounter - Ary Arauoj Ma - 10/25/2021 10:57 AM EDT ----- Message from Ulises Ramos, sent at 10/24/2021 7:56 AM EDT ----- All labs are normal, notify patient documented in this encounterSelect Medical [facility]07-13-2022 Miscellaneous Notes* Telephone Encounter - Derek Horne MA - 10/24/2021 2:46 PM EDT Pt scheduled on Friday and accepted the date and time. He will get the type and screen tomorrow morning. Derek Horne MA * Telephone Encounter - Halle Dale MD - 10/24/2021 1:25 PM EDT Ok to arrange 1 unit pRBC. Orders are placed. Please schedule. Thank you * Telephone Encounter - Derek Horne MA - 10/24/2021 12:22 PM EDT Pt came in today at 12 he wants you to take a look at the blood draw his PCP drawn he didn't go up much after his transfusion and thinks he needs another. His trip is also rescheduled 1 week (goes the .) Derek Horne MA documented in this encounterSelect Medical [facility]07-13-2022 History of Present illness Narrative* Heaven Shelley PTA - 10/24/2021 11:35 AM EDT Episode Visit Count: 20 Therapist That Will Oversee The Plan Of Care: Zachary Hodge Start of Care Date: 07/06/21 Plan of Care Certification Date: 10/09/21 Next Certification Due Date: 12/08/21 Patient Identified by Name and Date of : Yes REHABILITATION AND SPORTS THERAPY PHYSICAL THERAPY TREATMENT NOTE ASSESSMENT: Adina E Frankie tolerated the session with decreased endurance. He demonstrated difficulty with balance and activity tolerance . The patient will continue to benefit from ongoing skilled physical therapy to progress toward set goals. PLAN FOR NEXT VISIT: strength and conditioning, balance SUBJECTIVE: Patient reports talked to Dr about stopping Eliquis and blood clot precautions with flying. Had blood transfusion and arm sore. Pain: Pain Pain Level: 0 Pain Location: Hip - Left Additional Pain Information : Location 2 Pain Level 2: 3 Pain Location 2: Shoulder - Right OBJECTIVE MEASURES WITH LEVEL OF FUNCTION: TREATMENT: Therapeutic Exercise: 1: Nustep L4 x 10 min concurrent with information gathering 2: incline stretch 3 x 30 sec 3: MH abd 2pl 2x 10 4: --flex 2pl 2x 10 6: Leg press 85# 10 x 3 7: MH heel raises 10 x3 Skilled Intervention: Skilled judgment was provided in selection of appropriate interventions. Correct performance of therapeutic exercises was facilitated with verbal and visual cuing. Neuromuscular Re-Education: 1: Step ups lateral -no UE 2: --forward 3: Standing on airex with alt toe taps to 6 step 4: Airex: partial tandem 5: --head turns Skilled Intervention: Skilled judgment used to assess appropriate program for balance and coordination activity. Billing KX Modifier : Therapist attests that services rendered are medically necessary. Therapeutic Exercise Treatment Minutes: 30 Neuromuscular Re-Education Treatment Minutes: 10 Total Treatment Time Minutes (timed/untimed): 40 Heaven Shelley PTA documented in this encounterSelect Medical [facility]ty [facility]07-11-2022 History of Present illness Narrative* Ulises Ramos DO - 10/22/2021 2:21 PM EDT Here to discuss things. Having some diarrhea for about 10 days. Cholesterol is maybe too good.. 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 glover Diverticulitis of intestine with perforation 2004 WITH FISTULA Essential hypertension FHx: colon cancer Mother GERD (gastroesophageal reflux disease) HAS GI - [place] History of chickenpox History of scarlet fever History of spinal fracture 1973 L3-4 Hx of squamous cell carcinoma Hydrocele in adult Hypertriglyceridemia Hypokalemia 03/31/2019 Hypomagnesemia 03/31/2019 Leukocytosis 03/31/2019 Lipoma of back NSTEMI (non-ST elevated myocardial infarction) (HCC) Personal history of skin cancer bcc (r shoulder) 2015, scc (l lateral lower leg) 2018 Renal cancer (HCC) Stage 3 Sleep apnea CPAP PAST SURGICAL HISTORY Procedure Laterality Date BOWEL RESECTION HX 2005 Partial COLONOSCOPY 01/07/2019 hemorrhoids and diverticulosis CYSTOSCOPY 2004 2005 EGD 11/2019 x3 EGD 12/31/2018 Rhodes's, Duodenal erosions. Dr. Enio Degroot. HEMORRHOID SURGERY HX 1999 LAP NEPHRECTOMY Right 2018 DR. 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 omeprazole (PRILOSEC) 40 mg capsule Take 1 capsule by mouth once daily. BABY ASPIRIN ORAL Take 81 mg by mouth once daily. valACYclovir (VALTREX) 1 gram One po bid for 3 days as needed for cold sores magnesium oxide (MAG-OX) 400 mg (241.3 mg magnesium) tablet Take 1 tablet by mouth once daily evolocumab (REPATHA SURECLICK) 140 mg/mL pen injector Inject 1 pen (140 mg) subcutaneously every 2 weeks. albuterol HFA (PROVENTIL HFA, VENTOLIN HFA) 90 mcg/actuation inhaler INHALE 1-2 PUFFS EVERY 6 HOURSAS NEEDED FOR WHEEZING fenofibrate nanocrystallized (TRICOR) 145 mg tablet Take 1 tablet by mouth once daily calcitriol (ROCALTROL) 0.25 mcg capsule Take 0.25 mcg by mouth once daily. metoprolol tartrate, short acting, (LOPRESSOR) 50 mg tablet Take 1 tablet by mouth twice daily ergocalciferol 50,000 unit capsule (VITAMIN D2, DRISDOL) once every month. calcium carbonate (CALCIUM ANTACID) 500 mg chew One po bid prn gastritis mirtazapine (REMERON) 30 mg tablet Take 1 tablet by mouth daily at bedtime. oxybutynin (DITROPAN) 5 mg tablet Take 1 tablet by mouth three times daily. Fluorouracil 5 % cream Patient states she stopped this 2 days ago, but is going to ask his Seo Intern to see if he should continue. hydroxyurea (HYDREA) 500 mg capsule Take 3 capsules by mouth once daily. apixaban (ELIQUIS) 5 mg tab(s) Take 0.5 tablets by mouth twice daily. aspirin, enteric coated (ASPIRIN, ENTERIC COATED) 325 mg EC tablet Take 1 tablet by mouth twice daily for 21 days. Problem List: ACTIVE PROBLEM LIST Deng (Acute Kidney Injury) ([facility]) - 01/07/2019 (D priority) Vitamin D Deficiency - 07/17/2021 Obesity, Class I, Bmi 30-34.9 - 05/28/2021 Acute Blood Loss Anemia - 05/16/2021 Covid-19 Virus Infection - 05/16/2021 Severe Protein-Calorie Malnutrition ([facility]) - 05/09/2021 Severe Anemia - 05/02/2021 Cira (Obstructive Sleep Apnea) - 05/01/2021 Deep Vein Thrombosis (Dvt) of Femoral Vein of Left Lower Extremity ([facility]) - 03/14/2021 Leg Swelling - 03/14/2021 Leukocytosis - 03/31/2019 Essential Thrombocythemia ([facility]) - 03/31/2019 Ckd (Chronic Kidney Disease) Stage 3, Gfr 30-59 Ml/Min ([facility]) - 03/31/2019 Hypertriglyceridemia 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 S/P Drug Eluting Coronary Stent Placement - 11/25/2018 Stage 2 Chronic Kidney Disease - 11/10/2018 Nstemi (Non-St Elevated Myocardial Infarction) ([facility]) - 10/24/2018 Bph (Benign Prostatic Hyperplasia) - 10/05/2018 History of Right Nephrectomy - 10/05/2018 Nocturia - 03/19/2018 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 SUAREZ Review of Systems Constitutional: Negative. Respiratory: Negative. Cardiovascular: Negative. Gastrointestinal: Positive for diarrhea. Physical Exam Cardiovascular: Rate and Rhythm: Normal rate and regular rhythm. Pulses: Normal pulses. Heart sounds: Normal heart sounds. Pulmonary: Effort: Pulmonary effort is normal. Breath sounds: Normal breath sounds. Neurological: Mental Status: He is alert. BP 118/62 (BP Site: Right Arm, BP Position: Sitting, BP Cuff Size: Large Adult) Temp 37 C (98.6 F) (Tympanic) Wt 92.5 kg (203 lb 14.4 oz) BMI 29.26 kg/m ASSESSMENT/PLAN: 1. Diarrhea, unspecified type - ICD9: 787.91, ICD10: R19.7 (primary diagnosis) - ENTERIC BACTERIAL PANEL BY PCR - C. DIFFICILE PCR - OCCULT BLD EXAM-DIAG 2. Acute deep vein thrombosis (DVT) of left lower extremity, unspecified vein (HCC) - ICD9: 453.40,ICD10: I82.402 - C. DIFFICILE PCR 3. Iron deficiency anemia due to chronic blood loss - ICD9: 280.0, ICD10: D50.0 - CBC + DIFF - IRON + TIBC DO Ulises Perdomo DO documented in this encounterSelect [facility] History of Present illness Narrative* Heaven Shelley PTA - 10/22/2021 10:11 AM EDT Episode Visit Count: 19 Therapist That Will Oversee The Plan Of Care: Zachary Hodge Start of Care Date: 07/06/21 Plan of Care Certification Date: 10/09/21 Next Certification Due Date: 12/08/21 Patient Identified by Name and Date of : Yes REHABILITATION AND SPORTS THERAPY PHYSICAL THERAPY TREATMENT NOTE ASSESSMENT: Adina David tolerated the session with some fatigue. He demonstrated difficulty with decreased endurance, strength and compliance with HEP. Discussed increasing activity at home. And following up with MD regarding medications. The patient willcontinue to benefit from ongoing skilled physical therapy to progress toward set goals. PLAN FOR NEXT VISIT: strength and conditioning, balance SUBJECTIVE: Was low on blood and didn't attend therapy for a week. Got blood last week but still endurance still down. So far plan is to fly out November 01. Pain: Pain Pain Level: (.5) Pain Location: Hip - Left OBJECTIVE MEASURES WITH LEVEL OF FUNCTION: TREATMENT: Therapeutic Exercise: 1: Nustep L4 x 10 min concurrent with information gathering 2: incline stretch 3 x 30 sec 3: MH abd 2pl 2x 10 4: --flex 2pl 2x 10 6: Leg press 85# 10 x 3 7: MH heel raises 10 x3 8: Step ups 4 step- no UE support 9: STS x 10 Skilled Intervention: Skilled judgment was provided in selection of appropriate interventions. Correct performance of therapeutic exercises was facilitated with verbal and visual cuing. Additional time necessary for seated breaks due to fatigue.. Billing KX Modifier : Therapist attests that services rendered are medically necessary. Therapeutic Exercise Treatment Minutes: 40 Total Treatment Time Minutes (timed/untimed): 40 Heaven Shelley PTA documented in this encounterSelect Medical Specialty [facility]07-07-2022 Miscellaneous Notes* Telephone Encounter - Derek Horne MA - 10/18/2021 4:35 PM EDT Pt informed and understands, he sees his PCP next week, he also thanks you for getting him in quickfor the transfusion. Derek Horne MA * Telephone Encounter - Halle Dale MD - 10/18/2021 3:18 PM EDT Encourage him to look for alternative cause of insomnia. Encourage him to discuss with PCP about insomnia management. I'm reluctant to increase the dose as it put him at risk of complex sleep behavior, fall, injury, even . * Telephone Encounter - Derek Horne MA - 10/18/2021 1:[address] [facility] pharmacy in [place] called they received the zolpidem 5mg prescription the pt states 5mg doesn't work and he needs 10mg do you want to send a new script for 10mg? Derek Horne MA documented in this encounterSelect Medical [facility]07-07-2022 Miscellaneous Notes* Telephone Encounter - Lolis Lazaro LPN - 10/18/2021 10:45 AM EDT Patient's request for medication is as follows: Refused Prescriptions Disp Refills amLODIPine (NORVASC) 10 mg tablet [Pharmacy Med Name: amLODIPine Besylate 10 MG Oral Tablet] 12 tablet 0 Sig: Take 1 tablet by mouth once daily. JEOVANNY: No This medication was d/c'd. Prescription(s) as above. Please process accordingly. Lolis Lazaro LPN documented in this encounterSelect Medical [facility]07-07-2022 Miscellaneous Notes* Telephone Encounter - Halle Dale MD - 10/18/2021 8:59 AM EDT Orders are placed. documented in this encounterSelect Medical [facility]07-06-2022 Miscellaneous Notes* Telephone Encounter - Annmarie Ronquillo PA-C - 10/17/2021 8:31 AM EDT Message sent to patient via [employer]: Dear Mr. DavidAnderson, my name is Annmarie Ronquillo and I am covering for Ulises Ramos DO. I saw your message from yesterday. Yes your hemoglobin was only 7.2. 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 Dale? Please let me know if you need anything from family medicine. I hope you are feeling better soon. Regards, Annmarie Ronquillo PA-C * Telephone Encounter - Angy Avelar - 10/17/2021 8:14 AM EDT Regarding recent labs. Angy Avelar documented in this encounterSelect Medical [facility]07-05-2022 History of Present illness Narrative* Halle Dale MD - 10/16/2021 10:14 PM EDT Derek, please schedule 1 unit pRBC transfusion. Orders are in. Thank you documented in this encounterSelect Medical [facility]06-30-2022 Miscellaneous Notes* Telephone Encounter - Alison Ibarra RN - 10/11/2021 1:05 PM EDT Pharmacy requesting the following refill Refill(s) Requested: Pending Prescriptions Disp Refills ZOLPIDEM 5 MG TABLET 30 tablet 0 Sig: TAKE 1 TABLET BY MOUTH ONCE DAILY AT BEDTIME NEEDED FOR UP TO 30 DAYS WENDY Class: C-IV JEOVANNY: Yes ALLERGIES Allergen Reactions Doxycycline Intolerance Rash, diarrhea Penicillin Hives (home) [phone] (cell) Last Office Visit Date: 09/19/2021 Last [facility] Visit: Visit date not found Future Appointment: 12/20/2021 The patients preferred pharmacy has been captured for this encounter? yes Request is for script(s) to be escript to pharmacy. Alison Ibarra RN documented in this encounterSelect Medical Specialty [facility]06-30-2022 Miscellaneous Notes* Telephone Encounter - Bernarda Sarah RN - 10/11/2021 11:49 AM EDT Patient has been off Eliquis for about 1 week. He has an US scheduled for Friday to re-assess the DVT. He is scheduled to follow up with PCP on 10/22 and is not flying until 10/25. * Telephone Encounter - Yamel Riggins - 10/09/2021 12:09 PM EDT Patient is asking to speak to Dr. Ramos about the blood clot in his leg. States he is no longer taking blood thinners. He will be flying out to [place] on 10/25. Made an appointment for him with Dr. Ramos on 10/22. However, if possible he would still like to speak to a nurse or Dr. Ramos before the appointment. Please advise. Thank you! documented in this encounterSelect Medical [facility]ty [facility]06-29-2022 Miscellaneous Notes* Telephone Encounter - Shahla Prakash LPN - 10/10/2021 3:27 PM EDT Patient's pharmacy requesting new refill. Refused Prescriptions Disp Refills amLODIPine (NORVASC) 10 mg tablet [Pharmacy Med Name: amLODIPine Besylate 10 MG Oral Tablet] 20 tablet 0 Sig: Take 1 tablet by mouth once daily JEOVANNY: No Refused By: SHAHLA PRAKASH Reason for Refusal: A Refill not appropriate Reason for Refusal Comment: patient no longer on amlodipine. Shahla Parkash LPN documented in this encounterSelect Medical Specialty [facility]06-29-2022 History of Present illness Narrative* Louie Silva RN - 10/10/2021 1:13 PM EDT INSIGHT CD[facility] TELEPHONIC OUTREACH Provider Action/FYI: Spk with Pt, he noted completed a Lipid panel and his numbers were greatly improved he noted due totaking Repatha biweekly Pt denies new or worsening CKD or other symptoms, is hydrating well. Contact made with patient: Yes Patient identified by name and . Discussed care with patient It s nice talking to you again. As a reminder, this is our bi-weekly check-in where I will be asking you questions about your health. This will only take a few minutes of your time. Is this a good time? Yes Symptoms What Chronic Disease(s) does the patient have: CKD Do you check your blood pressures at home? No Do you have new or worse shortness of breath with activity? No Do you feel like you are dehydrated for any reason, including not being able to eat or drink normally, or having less urine/much darker urine than normal for you? No Do you check your daily weight at home? No Are you having any other symptoms that your PCP needs to know about? No Symptom Escalation The patient required an escalation for symptom(s)? No Medications Do you have any questions about taking your medication or which medications you should be on? No Do you need any medication refills at this time, including any of the medications you might take only when needed? No Social We would like to make sure you have what you need so that your basic needs are met- including your personal safety, food, housing and medications? Would you like to speak with a social work support team assoc to help give you support for any of these needs? No It can be normal to feel anxious or down during a time like this. Would you like to talk to a mental health professional about how you have been feeling? No Closing Thank you for taking the time to talk with me today. We want to work with you to ensure that we arekeeping your medical condition(s) well-controlled and to keep you healthy and out of the doctor's office or hospital. It s also not too late for me to sign you up for automated weekly questionnaires through [employer]. This is an easy way for us to stay connected each week. Are you interested? No, I understand. We can always sign you up in the future if you change your mind. Just as a reminder, will continue to call you every other week to check in on your health. Our calls should take 10-15 minutes or less. Remember, if you have concerns in between our calls, please call your PCP's office right away. Thank you. Enter next patient outreach date for two weeks on the same day of the week as today in the Track PtOutreach and End outreach. Wilton Palma RN October 10, 2021 1:13 PM documented in this encounterSelect Medical Specialty [facility]06-28-2022 Miscellaneous Notes* Telephone Encounter - Halle Dale MD - 10/09/2021 1:38 PM EDT Alison, can you please verify about his Eliquis dose. He's not off it but at a lower dose, 2.5 mg BID. If this is what's he's been taking, he should be fine going on the travel. Frequent ambulation is needed. Please let him know. Thanks * Telephone Encounter - Derek Horne MA - 10/09/2021 12:45 PM EDT Pt came in after PT today (I was at lunch rheumatology took the message) he is off his eliquis and he was told being on a plane can increase risk of a blood clot he wanted to see you or be advised onif he should be on anything, his trip is 10/25. Derek Horne MA documented in this encounterSelect Medical [facility]06-28-2022 History of Present illness Narrative* Sia Hodge PT - 10/09/2021 11:49 AM EDT Episode Visit Count: 18 Therapist That Will Oversee The Plan Of Care: Zachary Hodge Start of Care Date: 07/06/21 Plan of Care Certification Date: 10/09/21 Next Certification Due Date: 12/08/21 Patient Identified by Name and Date of : Yes REHABILITATION AND SPORTS THERAPY PHYSICAL THERAPY PROGRESS REPORT PLAN OF CARE UPDATE: Assessment: Adina David demonstrates difficulty with walking, heavy exertion, physical activities andrecreational activities. He lee smet 2 goals. Patient continues to present with impairments in balance, flexibility, gait, overall function, posture, strength and functional performance testing indicates decreased endurance and lower extremity strength that interfere with walking in the community;heavy exertion;physical activities;recreational activities;running . Current prognosis is Good due to:current objective clinical presentation;good overall health status . He will benefit from continuedskilled therapy services to meet the updated goals for this plan of care as noted below. UPDATED 10/09/21 UPDATED 08/27/21 UPDATED 08/09/21 Goals for Episode of Care: created on 07/06/21 through 09/03/21-extended through 12/08/21 [place] in home exercise program. ONGOING Patient will decrease pain rating by 2 points to meet minimal clinical important difference for numeric pain rating scale. PROGRESSING Patient will increase passive ROM of left hip to equal that of the right hip to allow pt to to improve gait mechanics / gait pattern and to decrease falls risks .-NOT ASSESSED Patient will demonstrate increase in left lower extremity strength to >=4+/5 in order to improvefunction for basic self-care tasks, home management tasks, light functional tasks and prior functional tasks. MET Patient will Improve Timed Up and Go to <6 seconds to demonstrate decreased risk of falling. PROGRESSING Patient will improve 5 time sit to stand to demonstrate improvement in functional lower extremity strength. MET Normal gait. PROGRESSING Patient will increase balance to 15 seconds for single limb stance on RLE and 15 seconds for singlelimb stance on LLE. REGRESSED Patient Goals: decrease pain; improve function Planned Interventions, Frequency, and Duration: 2x/week, 4 weeks Total Number of Visits Planned: 8 Patient to be seen for Neuromuscular re-education (77116);Therapeutic exercise (05787);Manual therapy (53021);Therapeutic activities (76250);Gait Training (16515);Patient/Family/Caregiver Education;E-Stim Unattended ([id number]) PLAN FOR NEXT VISIT: strength and conditioning, balance SUBJECTIVE: Patient Reason for Visit: L LE and deconditioning. States that he is doing better, but is still unable to balance on the left lower extremity and notes decreased strength throughout the left lower extremity. He also states that he took himself off of his eliquis and has a planned flightin October to [place]. I discussed the importance of letting his physicians know that he is no longeron a blood thinner as air travel increases clot risk. Functional Limitations: walking in the community;heavy exertion;physical activities;recreational activities;running Pain: Pain Pain Level: 1 Pain Location: Hip - Left PROMIS Scales T-scores: mean of general population = 50. 5 points is clinically meaningfully difference Percentiles provide an indication of how the patient's score ranks in relation to the general population. Higher percentile rankings indicate better function/quality of life. 50th percentile is the average of the general population and indicates half of respondents had a worse score. T-scores: mean of general population = 50. 5 points is clinically meaningfully difference Percentiles provide an indication of how the patient's score ranks in relation to the general population. Higher percentile rankings indicate better function/quality of life. 50th percentile is the average of the general population and indicates half of respondents had a worse score. OBJECTIVE MEASURES WITH LEVEL OF FUNCTION: Posture / Alignment Posture: Forward head;Rounded shoulders LE Flexibility R Hamstring Flexibility: minimal limitation-150 degrees L Hamstring Flexibility: minimal limitation-145 degrees LE Strength R Hip Extension: 4+/5 R Hip Flexion (L2): 5/5 R Hip ABduction: 4/5 R Knee Extension (L3): 5/5 R Knee Flexion: 4+/5 R Ankle Dorsiflexion (L4): 5/5 L Hip Extension: 4/5 L Hip Flexion (L2): 4/5 L Hip ABduction: 4/5 L Knee Extension (L3): 5/5 L Knee Flexion: 4/5 L Ankle Dorsiflexion (L4): 5/5 Functional Strength R Single Leg Heel Raise: 10 L Single Leg Heel Raise: 8 Functional Performance Test Results Assistive Device: None 5 Times Sit to Stand Test : 9.37 sec Timed Up and Go (sec): 8.7 sec Timed Up and Go - Condition 2 (sec) : 7.52 Unilateral Stance Time R Unilateral Stance Time (sec): 6 sec L Unilateral Stance Time (sec): 4 sec TREATMENT: Therapeutic Exercise: 1: -ROM/strength/functional assessment 2: incline stretch 3 x 30 sec 6: Leg press 85# 10 x 3 7: calf raises on leg press 30# 2x10 Skilled Intervention: Patient was educated in proper exercise technique and purpose for exercises. Skilled judgment was provided in selection of appropriate interventions. Correct performance of therapeutic exercises was facilitated with verbal, visual and tactile cuing. Billing Therapeutic Exercise Treatment Minutes: 45 Total Treatment Time Minutes (timed/untimed): 45 Sia Hodge PT documented in this encounterSelect Medical Specialty [facility]06-23-2022 Miscellaneous Notes* Telephone Encounter - Pratibha Barba LPN - 10/04/2021 8:50 AM EDT I called and spoke to and informed him of Melissa's response to lab results and recommendations. Patient voiced understanding. Pratibha Braba LPN * Telephone Encounter - Pratibha Barba LPN - 10/04/2021 8:46 AM EDT ----- Message from Melissa Raymond APRN.STUDIO PRODUCER sent at 10/04/2021 8:40 AM EDT ----- Please call the patient, and let them know the results of the blood work is amazing with repatha injection No change in medical treatment at this time. Please keep all appointments as scheduled. documented in this encounterSelect Medical [facility]06-22-2022 History of Present illness Narrative* Heaven Shelley PTA - 10/03/2021 10:47 AM EDT Episode Visit Count: 17 Therapist That Will Oversee The Plan Of Care: Neena Start of Care Date: 07/06/21 Plan of Care Certification Date: 09/04/21 Next Certification Due Date: 10/05/21 Patient Identified by Name and Date of : Yes REHABILITATION AND SPORTS THERAPY PHYSICAL THERAPY TREATMENT NOTE ASSESSMENT: Adina David tolerated the session with fatigue. He demonstrated improvements in strength progression. Added TB strengthening for ankle to HEP.. The patient will continue to benefit from ongoing skilled physical therapy to progress toward set goals. PLAN FOR NEXT VISIT: strength and conditioning, balance SUBJECTIVE: Patient admits partial complying with HEP. Wants to strength calves. Pain: Pain Pain Level: 1 Pain Location: Hip - Left OBJECTIVE MEASURES WITH LEVEL OF FUNCTION: TREATMENT: Therapeutic Exercise: 1: Nustep L6 x 8min - discussing HEP and body mechanics 2: incline stretch 3 x 30 sec 3: MH abd 2pl 2x 10 4: --flex 2pl 2x 10 5: --extn 3pl 2 x 10 6: Leg press 85# 10 x 3 7: MH heel raises 10 x3 8: 4 way ankle TB 10 x 3 Skilled Intervention: Skilled judgment was provided in selection of appropriate interventions. Correct performance of therapeutic exercises was facilitated with verbal and visual cuing. Billing KX Modifier : Therapist attests that services rendered are medically necessary. Therapeutic Exercise Treatment Minutes: 40 Total Treatment Time Minutes (timed/untimed): 45 Heaven Shelley PTA documented in this encounterSelect Medical Specialty [facility]06-21-2022 History of Present illness Narrative* Melissa Raymond APRN.STUDIO PRODUCER - 10/02/2021 1:30 PM EDT PRIMARY CARE PHYSICIAN: Ulises Ramos [address] [place] [address] Chief Complaint Patient presents with: CARD Follow Up 6 Month: HTN HISTORY OF PRESENT ILLNESS: Mr. David is a 65 year old male who is known to Dr. Mays last seen him in the office in January 2021. Patient has a known history of coronary artery disease status post coronary artery PTCA to the LAD, CLL followed by hematology oncology, CKD status post right nephrectomy, hyperlipidemia, GERD and h ypertension. Patient initially underwent a stress test that demonstrated ejection fraction 52% with small reversible deficit in the inferior apical wall underwent a heart catheterization in March 2018 showed 60% LAD with insignificant FFR 0.96, medical treatment was recommended. Patient then returned to the hospital in October 2018 for chest tightness with radiation to the jaw onthe arms, troponin was elevated to 3.74, catheterization revealed 80% LAD lesion, he underwent successful PTCA and drug-eluting stent placement to the left anterior descending. He was initially placed on Brilinta therapy unfortunately developed shortness of breath with medications, then was converted to Plavix therapy. Post catheterization, in cardiac rehab he developed shortness of breath with dizziness and lightheadedness was found to be anemic, was admitted to [facility] and underwent GI evaluation with endoscopic and colonoscopy, colonoscopy identified colonic AV malformation and internal hem orrhoid bleeding. His Plavix was interrupted for a month, he completed 3 months of dual antiplatelet therapy prior to his bleed. He then was readmitted to the hospital in March 2019, was found to have hypokalemia, hypokalemiaand hypomagnesia him, and was established with nephrology. In July 2020, he had a mechanical fall and broke his femur, unfortunately developed muscle aches joint pain with statins including Lipitor and Crestor. Patient was admitted to the hospital on May 01, 2021, and was discharged on May 16, 2021, was admitted for anemia with syncope, hemoglobin was found to be 4.8. Received a total of 6 units of packed cells. He was also found to have COVID-19 infection and received monoclonal antibodies and developed hypoxia required remdesivir also dexamethasone. He still has generalized weakness he is working up his exercise regiment utilizing also an iWatch, he also is attending physical therapy and does daily stretching. He has no chest discomfort with this exercise/activity, however he has noticed some pressure in his neck, which they felt was from swollen glands. I did review with him this could be anginal equivalent and should obtain a stress test, patient would like to defer stress test at this time. 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 glover Diverticulitis of intestine with perforation 2004 WITH FISTULA Essential hypertension FHx: colon cancer Mother GERD (gastroesophageal reflux disease) HAS GI - [place] History of chickenpox History of scarlet fever History of spinal fracture 1973 L3-4 Hx of squamous cell carcinoma Hydrocele in adult Hypertriglyceridemia Hypokalemia 03/31/2019 Hypomagnesemia 03/31/2019 Leukocytosis 03/31/2019 Lipoma of back NSTEMI (non-ST elevated myocardial infarction) (HCC) Personal history of skin cancer bcc (r shoulder) 2015, scc (l lateral lower leg) 2018 Renal cancer (HCC) Stage 3 Sleep apnea CPAP PAST SURGICAL HISTORY Procedure Laterality Date BOWEL RESECTION HX 2004 Partial COLONOSCOPY 01/07/2019 hemorrhoids and diverticulosis CYSTOSCOPY 2004 2004 EGD 11/2019 x3 EGD 12/31/2018 Rhodes's, Duodenal erosions. Dr. Enio Degroot. HEMORRHOID SURGERY HX 1999 LAP NEPHRECTOMY Right 2018 DR. MCDONALD PAST SURGICAL HISTORY OF hydrocel PAST SURGICAL HISTORY OF 07/23/2020 left femur STENT PLACEMENT 2018 MARTIN LAD TONSILLECTOMY AND ADENOIDECTOMY HX ads a child FAMILY HISTORY Problem Relation Age of Onset Cancer Mother BOWEL Heart Father Hyperlipidemia Father Diabetes Father Hypertension Father Colon Cancer No Family History Social History Tobacco Use Smoking status: Former Smoker Years: 10.00 Types: Cigars, Cigarettes Quit date: 12/21/1990 Years since quittin.8 Smokeless tobacco: Never Used Vaping Use Vaping Use: Never used Substance Use Topics Alcohol use: Yes Comment: very little Drug use: Never ALLERGIES Allergen Reactions Doxycycline Intolerance Rash, diarrhea Penicillin Hives Medications: Current Outpatient Medications Medication Sig Dispense Refill zolpidem (AMBIEN) 5 mg tablet Take 1 tablet by mouth at bedtime as needed for up to 30 days. 30 tablet 0 omeprazole (PRILOSEC) 40 mg capsule Take 1 capsule by mouth once daily. 90 capsule 3 BABY ASPIRIN ORAL Take 81 mg by mouth once daily. hydroxyurea (HYDREA) 500 mg capsule Take 3 capsules by mouth once daily. 90 capsule 2 magnesium oxide (MAG-OX) 400 mg (241.3 mg magnesium) tablet Take 1 tablet by mouth once daily 90 tablet 3 evolocumab (REPATHA SURECLICK) 140 mg/mL pen injector Inject 1 pen (140 mg) subcutaneously every 2 weeks. 2 Pen 11 albuterol HFA (PROVENTIL HFA, VENTOLIN HFA) 90 mcg/actuation inhaler INHALE 1-2 PUFFS EVERY 6 HOURSAS NEEDED FOR WHEEZING 8.5 g 11 fenofibrate nanocrystallized (TRICOR) 145 mg tablet Take 1 tablet by mouth once daily 90 tablet 3 calcitriol (ROCALTROL) 0.25 mcg capsule Take 0.25 mcg by mouth once daily. metoprolol tartrate, short acting, (LOPRESSOR) 50 mg tablet Take 1 tablet by mouth twice daily 180 tablet 3 ergocalciferol 50,000 unit capsule (VITAMIN D2, DRISDOL) once every month. calcium carbonate (CALCIUM ANTACID) 500 mg chew One po bid prn gastritis 60 tablet 5 mirtazapine (REMERON) 30 mg tablet Take 1 tablet by mouth daily at bedtime. 30 tablet 5 oxybutynin (DITROPAN) 5 mg tablet Take 1 tablet by mouth three times daily. 90 tablet 3 Fluorouracil 5 % cream Patient states she stopped this 2 days ago, but is going to ask his Seo Intern to see if he should continue. apixaban (ELIQUIS) 5 mg tab(s) Take 0.5 tablets by mouth twice daily. 60 tablet 5 valACYclovir (VALTREX) 1 gram One po bid for 3 days as needed for cold sores (Patient not taking: Reported on 06/20/2021 ) 30 tablet 11 aspirin, enteric coated (ASPIRIN, ENTERIC COATED) 325 mg EC tablet Take 1 tablet by mouth twice daily for 21 days. (Patient not taking: Reported on 06/20/2021 ) 42 tablet 0 No current facility-administered medications for this visit. Review of Systems Constitutional: Negative for malaise/fatigue. HENT: Negative for congestion. Eyes: Negative for blurred vision. Respiratory: Negative for shortness of breath. Cardiovascular: Negative for chest pain, palpitations, orthopnea and leg swelling. Gastrointestinal: Negative for blood in stool and nausea. Musculoskeletal: Negative for back pain and falls. Neurological: Negative for dizziness, tingling, speech change, loss of consciousness and weakness. Endo/Heme/Allergies: Does not bruise/bleed easily. Psychiatric/Behavioral: The patient does not have insomnia. Physical Examination: Vitals:BP 116/72 Pulse 83 Resp 18 Ht 5' 10 (1.78m) Wt 201 lb 11.2 oz (91.5kg) SpO2 97[room air]% BMI 28.94 kg/(m^2). Last 2 Encounter Wt Readings: Date: Wt: 09/19/2021 206 lb (93.4 kg) 09/12/2021 209 lb (94.8 kg) Physical Exam Vitals and nursing note reviewed. Constitutional: Appearance: He is not diaphoretic. HENT: Head: Atraumatic. Right Ear: Hearing normal. Left Ear: Hearing normal. Nose: No nasal deformity, mucosal edema or rhinorrhea. Eyes: Extraocular Movements: Right eye: No nystagmus. Left eye: No nystagmus. Pupils: Pupils are equal, round, and reactive to light. Neck: Vascular: No carotid bruit, hepatojugular reflux or JVD. Trachea: No tracheal deviation. Cardiovascular: Rate and Rhythm: Normal rate and regular rhythm. Chest Wall: PMI is not displaced. Pulses: Normal pulses. Heart sounds: Normal heart sounds. No murmur heard. Pulmonary: Effort: Pulmonary effort is normal. Breath sounds: Normal breath sounds. No stridor. Abdominal: General: Bowel sounds are normal. Palpations: Abdomen is soft. Tenderness: There is no abdominal tenderness. Musculoskeletal: General: Normal range of motion. Cervical back: Normal range of motion and neck supple. Skin: General: Skin is warm and dry. Coloration: Skin is not pale. Nails: There is no clubbing. Neurological: Mental Status: He is alert and oriented to person, place, and time. Cranial Nerves: No facial asymmetry. Motor: No weakness or abnormal muscle tone. Coordination: Coordination normal. Gait: Gait is intact. Gait normal. Psychiatric: Mood and Affect: Mood and affect normal. Cognition and Memory: Memory normal. Judgment: Judgment normal. Prior Cardiac Testing Cardiac catheterization October/2018-80% mid LAD lesion at bifurcation of diagonal 2, status post PTCA drug-eluting stent to the LAD March/2018-60% mid LAD FFR 0.96 insignificant Stress testing February/2018-EF 52%, small reversible defect inferior apical wall Echocardiogram October/2018-EF 54% Assessment and Plan: ASSESSMENT/PLAN: 1. Post PTCA - ICD9: V45.82, ICD10: Z98.61 Status post NSTEMI. October/2018-80% mid LAD lesion at bifurcation of diagonal 2, status post PTCA drug-eluting stent to the LAD. He remains on aspirin 81 mg daily, Lopressor 25 mg twice a day he is also on injectable Repatha therapy. If you elect to have stress test please call our office and I will order you a stress test at that time. 2. History of CKD: Follows with nephrology Last creatinine June 2021 1.78 3. Mixed hyperlipidemia: He is on Repatha therapy prior to being intolerant to Crestor and Lipitor therapy. Will obtain fasting lipid panel for review, with a goal LDL of less than 70 4. History of CLL: Currently following with 5. Gastrointestinal hemorrhage: colonoscopy identified colonic AV malformation and internal hemorrhoid bleeding. 6. COVID: Hospitalization May 2021 7. Obstructive sleep apnea: Patient states he has not utilized his sleep device for some time, I encouraged him to utilize this, I reviewed the worsening risks involved with nontreatment. I also reviewed with him to use cautionwith sleeping medications/pain medications for they can worsen apneic events. Melissa Raymond APRN.ALCIDES Follow up planning: Return in [address] Mays Electronically signed by Melissa Raymond APRN.ALCIDES The above note was partially created using a dictation recognition software. A reasonable attempt has been made to correct any errors. I spent >20 minutes in the visit, which included a review of the patients pertinent past medicalhistory, history of present health status, review of systems, assessment & planning, counseling, and further coordination of care. [facility] Nurse Note* Pratibha Barba LPN - 10/02/2021 1:17 PM EDT Patient c/o SOB with activity and increased fatigue. documented in this [facility] Miscellaneous Notes* Telephone Encounter - Delaney Turk RPh - 09/28/2021 3:40 PM EDT Pharmacy-Reviewed Medication History Patient Name:Linda David : 1955 Patient Contact Attempt: First attempt Adherence Packing Program Accepted? No, patient does not wish to participate. Patient is not interested at the time wants to stay at [facility] and decrease his meds. Gave him our phone number to reach out in case he is ever interested, thank you! Delaney Turk, PharmD, [facility] [phone] documented in this encounterSelect [facility] Miscellaneous Notes* Telephone Encounter - Halle Dale MD - 09/26/2021 2:54 PM EDT I'm not aware of such limit. Please let him know. Thanks for double checking. * Telephone Encounter - Elsie Gallo MA - 09/26/2021 11:55 AM EDT Patient wants to know if he has an altitude limit he has to stay under? He is traveling and will beflying over 8,000 feet. [phone]. Elsie Glalo MA documented in this encounterSelect [facility] History of Present illness Narrative* Louie Silva RN - 09/26/2021 11:22 AM EDT INSIGHT CDM TELEPHONIC OUTREACH Provider Action/FYI: Call to Pt left a message to verify CKD or other symptoms or needs. Encouraged adequate hydration with hot / humid weather. Contact made with patient: No - Left message Hello my name is Wilton Palma RN your Loading Shovel Oiler [facility] I am callingtoday for your bi-weekly check in. I am sorry I missed your call. I will reach out to you again tomorrow. (if the third call I will reach out to you again next week) Enter next patient outreach date for the following using the Track Pt Outreach. End outreach. Wilton Palma RN September 27, 2021 10:32 AM documented in this encounterSelect [facility] History of Present illness Narrative* Heaven Shelley, RAZIA - 09/26/2021 10:48 AM EDT Episode Visit Count: 16 Therapist That Will Oversee The Plan Of Care: Neena Start of Care Date: 07/06/21 Plan of Care Certification Date: 09/04/21 Next Certification Due Date: 10/05/21 Patient Identified by Name and Date of : Yes REHABILITATION AND SPORTS THERAPY PHYSICAL THERAPY TREATMENT NOTE ASSESSMENT: Adina David tolerated the session with some fatigue. He demonstrated difficulty with hip strength and improvements in STS. The patient will continue to benefit from ongoing skilled physicaltherapy to progress toward set goals. PLAN FOR NEXT VISIT: strength and conditioning, balance SUBJECTIVE: Calf fatigue getting better. Noticed hip discomfort getting in/out of car. Balance has been alright. Pain: Pain Pain Level: 2 Pain Location: Hip - Left OBJECTIVE MEASURES WITH LEVEL OF FUNCTION: TREATMENT: Therapeutic Exercise: 1: Nustep L6 x 8min - discussing HEP and body mechanics (mild SOB post) 2: incline stretch 3 x 30 sec 3: MH abd 2pl 3x 10 4: --flex 2pl 2x 10 5: --extn 3pl 2 x 10 6: Leg press 80# 10 x 4 7: MH heel raises 10 x3 8: Step ups 4 step 9: STS 2 x 10 Skilled Intervention: Skilled judgment was provided in selection of appropriate interventions. Correct performance of therapeutic exercises was facilitated with verbal and visual cuing. Billing KX Modifier : Therapist attests that services rendered are medically necessary. Therapeutic Exercise Treatment Minutes: 40 Total Treatment Time Minutes (timed/untimed): 40 Heaven Shelley PTA documented in this encounterSelect [facility] History of Present illness Narrative* Heaven Shelley PTA - 09/24/2021 10:48 AM EDT Episode Visit Count: 15 Therapist That Will Oversee The Plan Of Care: Neena Start of Care Date: 07/06/21 Plan of Care Certification Date: 09/04/21 Next Certification Due Date: 10/05/21 Patient Identified by Name and Date of : Yes REHABILITATION AND SPORTS THERAPY PHYSICAL THERAPY TREATMENT NOTE ASSESSMENT: Adina David tolerated the session with some fatigue. He demonstrated difficulty with balance on uneven surface and activity tolerance. Requires rest breaks. .. The patient will continue to benefit from ongoing skilled physical therapy to progress toward set goals. PLAN FOR NEXT VISIT: strength and conditioning, balance SUBJECTIVE: Patient reports blood work numbers were pretty good. Just energy level is low. Has not been complying with HEP but trying to walk more and without dog. Got sleep meds and able to sleep 3 hours at a time. Pain: Pain Pain Level: 1 Pain Location: Back OBJECTIVE MEASURES WITH LEVEL OF FUNCTION: Poor postural awareness. TREATMENT: Therapeutic Exercise: 1: Nustep L6 x 8min - discussing 2: incline stretch 3 x 30 sec 3: HS stretch seated 4: Standing hip abd green TB 10 x 3 6: Leg press 80# 10 x 4 7: MH heel raises 10 x3 8: Step ups 4 step Skilled Intervention: Skilled judgment was provided in selection of appropriate interventions. Correct performance of therapeutic exercises was facilitated with verbal and visual cuing. Neuromuscular Re-Education: 1: 2x4: tandem stance 2: --tandem walking 3: --sidestepping 4: --minisquats 5: foam pads -poles as needed Skilled Intervention: Skilled judgment used to assess appropriate program for balance and coordination activity. Billing Therapeutic Exercise Treatment Minutes: 30 Neuromuscular Re-Education Treatment Minutes: 10 Total Treatment Time Minutes (timed/untimed): 40 Heaven Shelley PTA documented in this encounterSelect [facility] History of Present illness Narrative* Halle Dale MD - 09/19/2021 11:32 AM EDT PROGRESS NOTE Adina David 1955 September 19, 2021 SYNOPSIS 1. ccRCC - diagnosed in 05/2017 from right nephrectomy - s/p right radical nephrectomy, clear cell RCC, WHO/ISUP grade 2, with renal vein invasion and renal vein thrombosis, 9 cm in size, pT3a pNx - no adjuvant treatment, BARNEY on surveillance 2. CLL - diagnosed in 04/2017, peripheral blood flow showed a CD5-positive B-cell lymphoproliferative disorder. The immunophenotype is consistent with CLL/SLL - stage 0, counts stable, have not required any treament 3. Essential thrombocythemia - platelet count over 1000K, without clear secondary causes - CALR no variant detected; JAK2 V617F not detected; BCR-ABL not detected - MPL-a sequence change of c.1502T>C in exon 10 was detected at approximately 18% allelic proportion; a sequence change of c. 1514G>A ([id number]) in exon 10 was detected at approximately 16% allelic proportion - he was started on hydrea since 04/2020, 500 mg BID. Also takes aspirin and Eliquis - 06/2021, hydrea dose was increased to 1500 mg daily 4. DVT - 03/14/2021, DVT of indeterminate age in the common femoral vein throughout - possibly provoked, as he had left femur subtrochanteric fracture s/p internal fixation with persistent swelling postop - on Eliquis anticoagulation since 03/2021 - 04/2021, his Eliquis dose was reduced to 2.5 mg BID due to GIB 5. Chronic anemia - chronic macrocytic anemia, Hb baseline 8-10 - anemia workup consistent with combination of iron deficiency and ACD. CKDIII (Cr>2, GFR<30) - admitted in 12/2018 with significant drop in H/H. EGD 2018 showed duodenal erosions polyp. Follow up EGD in 11/2019 showed this polyp to be a duodenal lipoma. C-scope in 12/2018 showed diverticulosis.Capsule endo showed poor prep and no obvious abnormality. - 04/2021, Hb down to 4.8. Push enteroscopy found multiple AVM's treated with APC. He received multiple units of pRBC and 1 dose of 1000 mg ferric derisomaltose in 05/2021. He took ferrous sulfate BID till end of 08/2021 when self-discotinued. Other comorbidity: CKDIII, CAD, HTN, COVID Patient inherited from: Dr. Sheela Bray Chief Complaint: Mr. Adina David is here to follow up his hematological conditions Interval History: He has increasing LUTS with nocturia and urinary incontinence. Saw urology, on a course of abx for possible UTI. He felt tired in the past 5 days because he did not sleep well at night, often wakes up every 2 hours. No appetite as things taste like chalk ever since COVID infection. Weight is down to 206 lbs. Review of Systems Constitutional: Positive for fatigue and unexpected weight change. Negative for activity change, appetite change, chills, diaphoresis and fever. HENT: Negative for mouth sores, sore throat, trouble swallowing and voice change. Eyes: Negative for photophobia and visual disturbance. Respiratory: Negative for cough, chest tightness, shortness of breath, wheezing and stridor. Cardiovascular: Negative for chest pain, palpitations and leg swelling. Gastrointestinal: Negative for abdominal distention, abdominal pain, anal bleeding, blood in stool,constipation, diarrhea, nausea, rectal pain and vomiting. Endocrine: Negative for cold intolerance and heat intolerance. Genitourinary: Positive for urgency. Negative for decreased urine volume, difficulty urinating, dysuria, enuresis, flank pain, frequency, genital sores and hematuria. Nocturia and incontinence Musculoskeletal: Negative for arthralgias, back pain, gait problem, joint swelling, myalgias, neck pain and neck stiffness. Skin: Negative for color change, pallor, rash and wound. Neurological: Negative for dizziness, tremors, seizures, syncope, facial asymmetry, speech difficulty, light-headedness, numbness and headaches. Hematological: Negative for adenopathy. Does not bruise/bleed easily. Psychiatric/Behavioral: Negative for sleep disturbance. 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 glover Diverticulitis of intestine with perforation 2004 WITH FISTULA Essential hypertension FHx: colon cancer Mother GERD (gastroesophageal reflux disease) HAS GI - SLEZAK History of chickenpox History of scarlet fever History of spinal fracture 1972 L3-4 Hx of squamous cell carcinoma Hydrocele in adult Hypertriglyceridemia Hypokalemia 03/31/2019 Hypomagnesemia 03/31/2019 Leukocytosis 03/31/2019 Lipoma of back NSTEMI (non-ST elevated myocardial infarction) (HCC) Personal history of skin cancer bcc (r shoulder) 2015, scc (l lateral lower leg) 2018 Renal cancer (HCC) Stage 3 Sleep apnea CPAP ALLERGIES Allergen Reactions Doxycycline Intolerance Rash, diarrhea Penicillin Hives Current Outpatient Medications Medication Sig Dispense Refill sulfamethoxazole-trimethoprim (BACTRIM DS) 800-160 mg per tablet Take 1 tablet by mouth twice dailyfor 10 days. 20 tablet 0 mirtazapine (REMERON) 30 mg tablet Take 1 tablet by mouth daily at bedtime. 30 tablet 5 omeprazole (PRILOSEC) 40 mg capsule Take 1 capsule by mouth once daily. 90 capsule 3 oxybutynin (DITROPAN) 5 mg tablet Take 1 tablet by mouth three times daily. 90 tablet 3 Fluorouracil 5 % cream Patient states she stopped this 2 days ago, but is going to ask his Seo Intern to see if he should continue. BABY ASPIRIN ORAL Take 81 mg by mouth once daily. hydroxyurea (HYDREA) 500 mg capsule Take 3 capsules by mouth once daily. 90 capsule 2 apixaban (ELIQUIS) 5 mg tab(s) Take 0.5 tablets by mouth twice daily. 60 tablet 5 magnesium oxide (MAG-OX) 400 mg (241.3 mg magnesium) tablet Take 1 tablet by mouth once daily 90 tablet 3 evolocumab (REPATHA SURECLICK) 140 mg/mL pen injector Inject 1 pen (140 mg) subcutaneously every 2 weeks. 2 Pen 11 albuterol HFA (PROVENTIL HFA, VENTOLIN HFA) 90 mcg/actuation inhaler INHALE 1-2 PUFFS EVERY 6 HOURSAS NEEDED FOR WHEEZING 8.5 g 11 fenofibrate nanocrystallized (TRICOR) 145 mg tablet Take 1 tablet by mouth once daily 90 tablet 3 calcitriol (ROCALTROL) 0.25 mcg capsule Take 0.25 mcg by mouth once daily. metoprolol tartrate, short acting, (LOPRESSOR) 50 mg tablet Take 1 tablet by mouth twice daily 180 tablet 3 ergocalciferol 50,000 unit capsule (VITAMIN D2, DRISDOL) once every month. calcium carbonate (CALCIUM ANTACID) 500 mg chew One po bid prn gastritis 60 tablet 5 valACYclovir (VALTREX) 1 gram One po bid for 3 days as needed for cold sores (Patient not taking: Reported on 06/20/2021 ) 30 tablet 11 aspirin, enteric coated (ASPIRIN, ENTERIC COATED) 325 mg EC tablet Take 1 tablet by mouth twice daily for 21 days. (Patient not taking: Reported on 06/20/2021 ) 42 tablet 0 No current facility-administered medications for this visit. Social History: in 11/2020 from breast cancer. He lives by himself. Daughter is around, 2 grandchildren. Retired. Former smoker, quit in 1990. Family History: Mother of colon cancer at age 85. No siblings, 1 daughter, w/o malignancy. I have confirmed and edited as necessary, the PFSH and ROS obtained by myself. BP 128/78 Pulse 79 Temp (Src) 98.6 (Temporal) Wt 206 lb (93.4kg) SpO2 96% Physical Exam Constitutional: General: He is not in acute distress. Appearance: Normal appearance. He is not ill-appearing, toxic-appearing or diaphoretic. HENT: Head: Normocephalic and atraumatic. Mouth/Throat: Mouth: Mucous membranes are moist. Eyes: General: No scleral icterus. Conjunctiva/sclera: Conjunctivae normal. Cardiovascular: Rate and Rhythm: Normal rate and regular rhythm. Pulses: Normal pulses. Heart sounds: No murmur heard. No friction rub. No gallop. Pulmonary: Effort: Pulmonary effort is normal. No respiratory distress. Breath sounds: No stridor. No wheezing, rhonchi or rales. Abdominal: General: Abdomen is flat. Bowel sounds are normal. There is no distension. Palpations: Abdomen is soft. There is no mass. Tenderness: There is no abdominal tenderness. There is no guarding or rebound. Musculoskeletal: General: No swelling or deformity. Normal range of motion. Cervical back: Normal range of motion and neck supple. Right lower leg: No edema. Left lower leg: Edema present. Comments: Left more swollen than the right, overall improved than before Lymphadenopathy: Cervical: No cervical adenopathy. Skin: General: Skin is warm and dry. Coloration: Skin is not jaundiced. Findings: No bruising or rash. Neurological: General: No focal deficit present. Mental Status: He is alert and oriented to person, place, and time. Psychiatric: Mood and Affect: Mood normal. Behavior: Behavior normal. Labs: Component Latest Ref Rng & Units 07/17/2021 08/14/2021 09/11/2021 WBC 3.70 - 11.00 k/uL 13.52 (H) 24.80 (H) 15.43 (H) RBC 4.20 - 6.00 m/uL 2.77 (L) 2.74 (L) 2.20 (L) HGB 13.7 - 17.5 g/dL Hematocrit 39.0 - 51.0 % 33.6 (L) 35.1 (L) 30.6 (L) MCV 80.0 - 100.0 fL 121.3 (H) 128.1 (H) 139.1 (H) MCH 26.0 - 34.0 pg 39.4 (H) 43.8 (H) 46.8 (H) MCHC 30.5 - 36.0 g/dL 32.4 34.2 33.7 RDW 11.6 - 14.4 % RDW-SD 36.1 - 45.8 fl Platelet Count 150 - 400 k/uL 497 (H) 407 (H) 252 MPV 9.0 - 12.7 fL 9.1 9.3 9.7 Nucleated RBC % 0.0 - 0.2 % Nucleated RBC Absolute 0.00 - 0.01 thou/cmm Seg Neutrophil % Lymphocyte % Monocyte % Eosinophil % Basophil % Atypical Lymph % Metamyelocytes % Myelocyte % Abs. Neut(Anc) 1.78 - 5.38 thou/cmm Immat Grans Abs Calc 0.00 - 0.05 thou/cmm Abs. Lymph 0.84 - 2.85 thou/cmm Abs. [place] 0.30 - 0.82 thou/cmm Abs. Eosin 0.04 - 0.54 thou/cmm Abs. Baso 0.01 - 0.08 thou/cmm Smudge Cells RBC Morphology Anisocytosis Present Hypochromasia Polychromasia Slight Other Immatures % Blast and Bl # thou/cmm Macro-Ovalocyte Spherocytosis CBC Interp. Pathologist Hemoglobin 13.0 - 17.0 g/dL 10.9 (L) 12.0 (L) 10.3 (L) RDW-CV 11.5 - 15.0 % 22.8 (H) 18.9 (H) 18.8 (H) NRBC /100 WBC 0.0 0.0 0.2 Absolute nRBC <0.01 k/uL <0.01 <0.01 0.03 (H) Neut% % 19.8 18.0 15.9 Abs Neut (ANC) 1.45 - 7.50 k/uL 2.68 4.46 2.46 Lymph% % 43.9 71.0 52.0 Abs Lymph 1.00 - 4.00 k/uL 5.93 (H) 17.61 (H) 8.02 (H) [place]% % 35.2 1.0 31.6 Abs [place] <0.87 k/uL 4.76 (H) 0.25 4.88 (H) Eosin% % 0.3 0.0 0.1 Abs Eosin <0.46 k/uL 0.04 0.00 <0.03 Baso% % 0.3 0.0 0.1 Abs Baso <0.11 k/uL 0.04 0.00 <0.03 [place]% % Component Latest Ref Rng & Units 05/28/2021 06/19/2021 Protein, Total 6.3 - 8.0 g/dL 6.4 Albumin 3.9 - 4.9 g/dL 4.6 Calcium 8.5 - 10.2 mg/dL 8.8 9.2 Bilirubin, Total 0.2 - 1.3 mg/dL 0.2 Alkaline Phosphatase 38 - 113 U/L 68 AST 14 - 40 U/L 21 ALT 10 - 54 U/L 14 Glucose 74 - 99 mg/dL 104 (H) 139 (H) BUN 9 - 24 mg/dL 28 (H) 23 Creatinine 0.73 - 1.22 mg/dL 1.99 (H) 1.78 (H) Sodium 136 - 144 mmol/L 140 139 Potassium 3.7 - 5.1 mmol/L 4.7 4.4 Chloride 97 - 105 mmol/L 105 102 CO2 22 - 30 mmol/L 21 (L) 21 (L) Anion Gap 9 - 18 mmol/L 14 16 eGFR >=60 mL/min/1.73m 41 (L) Component Latest Ref Rng & Units 09/11/2021 Ferritin 30.3 - 565.7 ng/mL 75.1 Imaging: CT C/A/P w/o contrast 01/23/2021 1. Enlarged lymph node paraesophageal region of the posterior mediastinum stable since prior exam. Of unclear etiology. Metastatic disease not excluded. 2. Increase in size of ovoid nodule along left hemidiaphragm. Metastatic disease is a consideration. This nodule would be difficult to percutaneously biopsy given its size and location. Follow-up is recommended. 3. New ovoid density posteriorly at the left lung base. It may represent new very small pleural effusion. Recommend attention to this on follow-up scans. 4. Extensive lymph node enlargement throughout the periportal region and throughout the mesenteric fat in the right abdomen. Not significantly changed since prior CT scan 07/19/2020. Stable pelvic and inguinal lymph node prominence. 5. Status post open reduction internal fixation proximal left femur fracture. Fracture line still visible. Pathology: none Assessment and Plan: Mr. Adina David is a pleasant 65 yo M with multiple comorbidity including clear cell RCC, CLL, MPN, DVT, CAD, CKD III and chronic anemia, who presents to establish care. 1. Chronic macrocytic anemia - Hb baseline 8-10. Causes of chronic anemia is multifactorial, including CKDIII, GIB, iron deficiency, CLL/MPN on hydrea - following major GIB, he received multiple units of pRBC and 1 dose of 1000 mg ferric derisomaltose in 05/2021. Took ferrous sulfate BID till end of 08/2021 when self-discontinued. Current ferritin 75.1 - continue hydrea 1500 mg - current Hb 10.3 (at baseline) - macrocytosis is likely due to hydrea. Renal function stable. - low suspicion of CLL or MPN progression, defer repeating BMX while on anticoagulation 2. ccRCC - diagnosed in 05/2017 - s/p right radical nephrectomy, clear cell RCC, WHO/ISUP grade 2, with renal vein invasion and renal vein thrombosis, 9 cm in size, pT3a pNx - no adjuvant treatment, BARNEY on surveillance. CKDIII 3. CLL - diagnosed in 04/2017, peripheral blood flow showed a CD5-positive B-cell lymphoproliferative disorder. The immunophenotype is consistent with CLL/SLL - CT C/A/P showed mediastinal and abdominal adenopathy, stable compared scan in 07/2020, likely fromCLL/SLL process. - Su stage I. No indication to initiate treatment 4. Essential thrombocythemia - platelet count over 1000K, without clear secondary causes - CALR no variant detected; JAK2 V617F not detected; BCR-ABL not detected - MPL-a sequence change of c.[id number]>C in exon 10 was detected at approximately 18% allelic proportion; a sequence change of c. 1514G>A (p.[id number]) in exon 10 was detected at approximately 16% allelic proportion - he was started on hydrea since 04/2020, 500 mg BID - in the setting of major GIB, he had severe thrombocytosis (plt > 1000 k) put him at risk of thrombosis and bleeding due to acquired VWD. Increase hydrea dose to 1500 mg daily, with monthly countcheck. - continue ASA and Eliquis 2.5 mg BID 5. DVT - 03/14/2021, DVT of indeterminate age in the common femoral vein throughout - possibly provoked, as he had left femur subtrochanteric fracture s/p internal fixation with persistent swelling postop - on Eliquis 5 mg BID since 03/2021. Dose reduce to 2.5 mg BID in 05/2021 due to renal dysfunction and GIB 6. BPH - LUTS from BPH. - PSA 8.67. - prior prostate biopsy showed no evidence of cancer. - Being followed and managed by urology Plan: - hydrea to 1500 mg daily - continue ASA and Eliquis 2.5 mg BID - off ferrous sulfate 325 mg BID - monthly count check - nutrition consult - RTC in 3 months. Call sooner if any questions or concerns. Some elements copied from my notes 06/20/2021, including the physical exam completed in entirety today, have been updated where appropriate. All reflect current medical decision making from today, 09/19/2021 Medical Decision Making: Problems: Moderate: 2+ stable chronic illnesses Data: Unique test result(s) reviewed: 3+ Unique test(s) ordered: 3+ Risk: High: High risk from testing/treatment Medical Decision Making Level: 4 - Moderate documented [facility] History of Present illness Narrative* Sierra Ortiz, PT - 09/13/2021 10:46 AM EDT Episode Visit Count: 14 Therapist That Will Oversee The Plan Of Care: Neena Start of Care Date: 07/06/21 Plan of Care Certification Date: 09/04/21 Next Certification Due Date: 10/05/21 REHABILITATION AND SPORTS THERAPY PHYSICAL THERAPY TREATMENT NOTE ASSESSMENT: Adina David tolerated the session with expected muscle soreness and no issues. He demonstrated difficulty with SL balance and improvements in decreased reports of LLE pain. The patient willcontinue to benefit from ongoing skilled physical therapy to progress toward set goals. PLAN FOR NEXT VISIT: strength and conditioning, balance SUBJECTIVE: Trying to do HEP at home. Walked a mile and half the other day. Going to reschedule and appointmentfrom next week and then go from there. Saw PCP. Prescribed medication for sleep. Pain: Pain Pain Level: 3 Pain Location: Back OBJECTIVE MEASURES WITH LEVEL OF FUNCTION: TREATMENT: Therapeutic Exercise: 1: Nustep L7 x 8min - discussing 2: incline stretch 3 x 30 sec 3: HS stretch 3 x 30 sec seated 4: MH abd 2pl 3x 10 6: Leg press 80# 10 x 4 7: MH heel raises 10 x3 Skilled Intervention: Patient was educated in proper exercise technique and purpose for exercises. Reviewed and educated patient on additions/changes for home exercise program as above (*). Educated patient on rationale for performing exercises in regards to ROM and function . Patient education as noted. Neuromuscular Re-Education: 1: Fwd/back blue<> black pads 2: SLS Skilled Intervention: Skilled judgment used to assess appropriate program for balance and coordination activity. Patient education as noted. Billing Therapeutic Exercise Treatment Minutes: 30 Neuromuscular Re-Education Treatment Minutes: 10 Total Treatment Time Minutes (timed/untimed): 40 Sierra Ortiz PT documented in this encounterSelect [facility] Miscellaneous Notes* Telephone Encounter - Love Mon COORD - 09/13/2021 10:11 AM EDT Spoke with patient and he understood the psa in October and possible mri He said that his urinary symptoms have subsided about 50% and I informed him that if they didn't get better to call us and we can have him come in for a urine check * Telephone Encounter - Love PINA - 09/13/2021 10:11 AM EDT ----- Message from Loy Mcallister MD sent at 09/12/2021 7:02 PM EDT ----- I left a message on his machine. Asked that he obtain a PSA in October. If it is still high or higher we would plan on an MRI. He is also having urinary symptoms per a call from a nurse somewhere. Please check on him and if his symptoms are still bothering him lets get him in to be seen and get his urine checked. documented in this encounterSelect [facility] History of Present illness Narrative* Ulises Ramos DO - 09/12/2021 10:57 AM EDT Here to fu on the prostate. Feels some improvement in the urination. Feels like he is tired all thetime and cant seem to get to sleep. Here to fu on prostate. Low energy. Missed amlodipine and bp seems ok off it. Would like to get offwhat he can. 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 glover Diverticulitis of intestine with perforation 2004 WITH FISTULA Essential hypertension FHx: colon cancer Mother GERD (gastroesophageal reflux disease) HAS GI - SLEZAK History of chickenpox History of scarlet fever History of spinal fracture 1973 L3-4 Hx of squamous cell carcinoma Hydrocele in adult Hypertriglyceridemia Hypokalemia 03/31/2019 Hypomagnesemia 03/31/2019 Leukocytosis 03/31/2019 Lipoma of back NSTEMI (non-ST elevated myocardial infarction) (HCC) Personal history of skin cancer bcc (r shoulder) 2015, scc (l lateral lower leg) 2018 Renal cancer (HCC) Stage 3 Sleep apnea CPAP PAST SURGICAL HISTORY Procedure Laterality Date BOWEL RESECTION HX 2004 Partial COLONOSCOPY 01/07/2019 hemorrhoids and diverticulosis CYSTOSCOPY 2004 2004 EGD 11/2019 x3 EGD 12/31/2018 Rhodes's, Duodenal erosions. Dr. Enio Degroot. HEMORRHOID SURGERY HX 1999 LAP NEPHRECTOMY Right 2018 DR. 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 omeprazole (PRILOSEC) 40 mg capsule Take 1 capsule by mouth once daily. oxybutynin (DITROPAN) 5 mg tablet Take 1 tablet by mouth three times daily. Fluorouracil 5 % cream Patient states she stopped this 2 days ago, but is going to ask his Seo Intern to see if he should continue. BABY ASPIRIN ORAL Take 81 mg by mouth once daily. hydroxyurea (HYDREA) 500 mg capsule Take 3 capsules by mouth once daily. apixaban (ELIQUIS) 5 mg tab(s) Take 0.5 tablets by mouth twice daily. magnesium oxide (MAG-OX) 400 mg (241.3 mg magnesium) tablet Take 1 tablet by mouth once daily evolocumab (REPATHA SURECLICK) 140 mg/mL pen injector Inject 1 pen (140 mg) subcutaneously every 2 weeks. albuterol HFA (PROVENTIL HFA, VENTOLIN HFA) 90 mcg/actuation inhaler INHALE 1-2 PUFFS EVERY 6 HOURSAS NEEDED FOR WHEEZING fenofibrate nanocrystallized (TRICOR) 145 mg tablet Take 1 tablet by mouth once daily calcitriol (ROCALTROL) 0.25 mcg capsule Take 0.25 mcg by mouth once daily. metoprolol tartrate, short acting, (LOPRESSOR) 50 mg tablet Take 1 tablet by mouth twice daily ergocalciferol 50,000 unit capsule (VITAMIN D2, DRISDOL) once every month. calcium carbonate (CALCIUM ANTACID) 500 mg chew One po bid prn gastritis valACYclovir (VALTREX) 1 gram One po bid for 3 days as needed for cold sores aspirin, enteric coated (ASPIRIN, ENTERIC COATED) 325 mg EC tablet Take 1 tablet by mouth twice daily for 21 days. Problem List: ACTIVE PROBLEM LIST Deng (Acute Kidney Injury) ([facility]) - 01/07/2019 (D priority) Vitamin D Deficiency - 07/17/2021 Obesity, Class I, Bmi 30-34.9 - 05/28/2021 Acute Blood Loss Anemia - 05/16/2021 Covid-19 Virus Infection - 05/16/2021 Severe Protein-Calorie Malnutrition ([facility]) - 05/09/2021 Severe Anemia - 05/02/2021 Cira (Obstructive Sleep Apnea) - 05/01/2021 Deep Vein Thrombosis (Dvt) of Femoral Vein of Left Lower Extremity ([facility]) - 03/14/2021 Leg Swelling - 03/14/2021 Leukocytosis - 03/31/2019 Essential Thrombocythemia ([facility]) - 03/31/2019 Ckd (Chronic Kidney Disease) Stage 3, Gfr 30-59 Ml/Min ([facility]) - 03/31/2019 Hypertriglyceridemia Rhodes Esophagus S/P Ptca (Percutaneous Transluminal Coronary Angioplasty) - 11/25/2018 S/P Drug Eluting Coronary Stent Placement - 11/25/2018 Stage 2 Chronic Kidney Disease - 11/10/2018 Nstemi (Non-St Elevated Myocardial Infarction) ([facility]) - 10/24/2018 Bph (Benign Prostatic Hyperplasia) - 10/05/2018 History of Right Nephrectomy - 10/05/2018 Nocturia - 03/19/2018 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 Cll (Chronic Lymphocytic Leukemia) (Hcc) - 06/13/2017 Iron Deficiency Anemia - 06/13/2017 Renal Cancer, Right (Hcc) - 04/29/2017 Essential Hypertension Multiple Lipomas Gerd (Gastroesophageal Reflux Disease) Comment: HAS GI - TRACE H/O Resection of Large Bowel - 04/14/2004 Comment: DR. SUAREZ Review of Systems Physical Exam Eyes: General: Scleral icterus: remero. Cardiovascular: Rate and Rhythm: Normal rate and regular rhythm. Pulses: Normal pulses. Heart sounds: Normal heart sounds. Pulmonary: Effort: Pulmonary effort is normal. Breath sounds: Normal breath sounds. Neurological: Mental Status: He is alert. BP 118/72 (BP Site: Right Arm, BP Position: Sitting, BP Cuff Size: Large Adult) Pulse 87 Temp 36.4 C (97.5 F) (Tympanic) Wt 94.8 kg (209 lb) SpO2 98% BMI 29.99 kg/m ASSESSMENT/PLAN:ASSESSMENT/PLAN: 1. Elevated PSA - ICD9: 790.93, ICD10: R97.20 (primary diagnosis) - PSA FREE 2. 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 Elevated PSA - ICD9: 790.93, ICD10: R97.20 - PSA FREE Ulises Ramos DO documented in this encounterSelect [facility] History of Present illness Narrative* Kristal De Leon RN - 09/11/2021 10:39 AM EDT ACM RITU RN Action/FYI: PCP follow up tomorrow 09/12/21 - Patient thinks the antibiotic is working a little bit, the urgency and sensation has let up. - Feeling very fatigued today. Not sleeping well although this is not a new issue.Had about 1000 mlof urine output overnight. Encouraged him to stay hydrated, check his BP (and educated on low BP readings). Plans to have his CBC checked today. Standing lab. Consult to outpatient pharmacy for [facility] outreach placed: - Concerns about medication cost. Eliquis is very expensive for him and Repatha is as well. He has tried other cholesterol medications but they cause him to have muscle spasms. - He would like to decrease the number of medications he takes, feel slike he is taking too many. Routing to ECoaching team for Clarity program: - Patient living alone, stressed about finances, health management. Not sleeping well. His last year as well. - Registration link sent to: [email or web address] Patient identified by name and date of . Patient Attributed To: QAE Payer: ACO ([facility]) Reason for review or outreach: Contract Priority Patient qualifies for ACO Ecosystem outreach Contact made with Patient: Yes Spoke to patient. Patient identified by name and . Hi my name is Kristal De Leon RN and I am calling from the [facility]. Because you receive care from Ulises Ramos DO, one of our Primary Care Providers who is a participant in our Accountable Care Organization, you qualify for some additional resources and information at no cost that may helpyou better manage your care from home. An ACO is a group of doctors, hospitals, and other health care providers, who come together voluntarily to provide coordinated high- quality care to their Medicare patients. Are you available to discuss some of these options now? Yes Primary Care Provider First: First, please know that care is available 04/11 through your PCP's office. Unless you are experiencing a life-threatening emergency, contact your primary care provider first. They will assess for the appropriate place for care, schedule appointments, and connect you to a provider if appropriate. PCP office number provided to the patient- [phone]. For non-urgent requests, you or a family member can also message your PCP on [employer]. Do you have access to your [employer] account? Y For life-threatening emergencies, go to the [facility] emergency department or call 911. PCP/Specialist Follow up: Date of last PCP visit: Visit date not found Date of next PCP follow up: Visit date not found PNEUMOCOCCAL: 63+(2 - PCV) due on 02/27/2018 ADVANCE DIRECTIVE DISCUSSION Never done BP CONTROLLED (<130/80) due on 08/24/2021 SHINGRIX VACCINE(3 of 3) due on 09/06/2021 Patient is due for a PCP appointment to be scheduled: No Does the patient have any other scheduling needs? No Pharmacy for Life: Recently, your Primary Care Provider, in coordination with our Pharmacy team, has developed a program to help patients with complex medical conditions. This is a program that I believe you would benefit from. The program focus is to help optimize your medication regimens, ensure that they are as affordable to you as possible, and make sure that there are no lapses in delivery of care to you. Our pharmacists will be reaching out to you by phone or [employer] message to set up a time to review your medications. If you already see someone from our pharmacy team, that person will reach out to you. They will also request that you have your prescriptions filled by a [facility]. The reason for this is to allow us to more fully help you manage your medications and your disease conditions in the most comprehensive way. It also allows Ulises Ramos DO to have the most up to date access to your medication information. To learn more about [facility] locations and services, visit our website at [email or web address] or call [phone]). RX Consult to outpatient pharmacy placed- Reason for consult: ACO patient Comment: any relevant notes for pharmacy team Include Primary Diagnoses (CKD, CHF, COPD, DM, etc.) SMA/vSMA: Does patient qualify for CDM vSMA? No E-Coaching: Does patient have email access Yes Most people know what to do to become healthier, yet struggle to put it into action on their own.Itcan be hard to maintain a healthy lifestyle, especially when life is so stressful. Wellness coaching is a valuable resource for people who are looking to improve in a broad variety of areas such as stress reduction, management of chronic disease and conditions, as well as improving their nutrition and exercise routines. Can we connect you with a [facility] Case Manager to find a program that could help you meet your goals? No Clarity- Managing your health can be stressful, and to support you in your wellness journey the [facility] offers an emotional health and well-being program at no cost to you. This 4-month program is delivered primarily through email and focuses on participants' overall emotional health and well-beingto help increase happiness, calm and a peaceful mindset. E-Coaches use proven modalities like Cognitive Behavioral Therapy (CBT) techniques, Mindfulness, and Motivational Interviewing along with providing homework assignments, articles, videos, and other resources to assist you in meeting your personalized goals. This program is not a counseling program and is not intended to be used in place of c ounseling. If you are interested in participating, I will send you the registration form now and ensure you receive it. Once you complete it, the eCoaching team will contact you directly. Would you like to participate in this program? Patient agreeable to [place] Y E-mail confirmed: [email or web address] Registration link sent to Patient: [email or web address] to : P Wellness ECoaching - Indicate ACO Patient & which program they are interested in ([place]) Add comment to Action/FYI PCSW- We would like to make sure you have what you need so that your basics needs are met - including your personal safety, food, housing and medications. Would you like to speak with a social work support team assoc to help give you support for any of these needs? No BHSW- It can be normal to feel anxious or down during a time like this. Would you like to talk to amental health professional about how you have been feeling? No Action Taken: No action taken Kristal De Leon RN September 11, 2021 10:41 AM documented in this encounterSelect [facility] Evaluation note* Diagnosis Stage 3 chronic kidney disease, unspecified whether stage 3a or 3b CKD (HCC)- Primary documented in this encounter [facility] Miscellaneous Notes* Telephone Encounter - Loraine Ibarra RN - 09/05/2021 1:25 PM EDT Notified and scheduled. * Telephone Encounter - Ulises Ramos DO - 09/05/2021 12:23 PM EDT Get him apt w me next week but tell him I sent over antibiotic to start treating prostatitis. Get this now and we will discuss it all next week * Telephone Encounter - Loraine Ibarra RN - 09/04/2021 2:17 PM EDT Patient has symptoms of UTI. His prostate level is 10.35, he is getting that redrawn at the beginning of September per Dr. Mcallister. He said that he has been having these symptoms for a couple weeks. Please advise. Do you want him to come into express care to be seen or something else because of his PSA? * Telephone Encounter - Guerline Cabezas - 09/04/2021 2:04 PM EDT Patient transferred to nurse line per patient's request in regards to urine frequency. documented in this encounterSelect [facility] History of Present illness Narrative* Heaven Shelley PTA - 09/05/2021 10:06 AM EDT Episode Visit Count: 13 Therapist That Will Oversee The Plan Of Care: Neena Start of Care Date: 07/06/21 Plan of Care Certification Date: 09/04/21 Next Certification Due Date: 10/05/21 Patient Identified by Name and Date of : Yes REHABILITATION AND SPORTS THERAPY PHYSICAL THERAPY TREATMENT NOTE ASSESSMENT: Adina David tolerated the session with no issues. He demonstrated improvements in strength progression and balance. . The patient will continue to benefit from ongoing skilled physical therapy to progress toward set goals. PLAN FOR NEXT VISIT: strength and conditioning, balance SUBJECTIVE: Patient reports feeling okay today. Took dog for walk a little over 1/2 mile and did okay. Has beendoing HEP more. Pain: Pain Pain Level: 1 Pain Location: Hip - Left OBJECTIVE MEASURES WITH LEVEL OF FUNCTION: TREATMENT: Therapeutic Exercise: 1: Nustep L6 x 8min - discussing 2: incline stretch 3 x 30 sec 3: HS stretch 3 x 30 sec seated 4: MH abd 2pl 2x 10 5: --flex 2pl 2x 10 6: Leg press 75# 10 x 4 7: MH heel raises 10 x2 8: HS curl 30# 10 x 3 9: STS x 10 Skilled Intervention: Skilled judgment was provided in selection of appropriate interventions. Correct performance of therapeutic exercises was facilitated with verbal and visual cuing. Neuromuscular Re-Education: 1: Fwd/back blue<> black pads 2: static on black pads: EO/EC 3: --head turns 4: SLS Skilled Intervention: Skilled judgment used to assess appropriate program for balance and coordination activity. Billing Therapeutic Exercise Treatment Minutes: 30 Neuromuscular Re-Education Treatment Minutes: 10 Total Treatment Time Minutes (timed/untimed): 40 Heaven Shelley PTA documented in this encounterSelect [facility]22 History of Present illness Narrative* Loy Mcallister MD - 08/30/2021 5:28 PM EDT What is CDM? Why are you calling my patients and then sending me calls like this? * Louie Silva RN - 08/30/2021 3:39 PM EDT INSIGHT CDM TELEPHONIC OUTREACH Provider Action/FYI: Routed update and Pt concerns to Dr. Loy Mcallister Urology and Dr. Ramos- Please contact Pt directly with recommendations. Spk with Pt he reported significant Urgency and Frequency that he has concerns about since startingOxybutynin. Pt denies fever or chills, denies burning on urination or foul smelling urine, light yellow color. Contact made with patient: Yes Patient identified by name and . Discussed care with patient It s nice talking to you again. As a reminder, this is our bi-weekly check-in where I will be asking you questions about your health. This will only take a few minutes of your time. Is this a good time? Yes Symptoms What Chronic Disease(s) does the patient have: CKD Do you check your blood pressures at home? No Do you have new or worse shortness of breath with activity? No Do you feel like you are dehydrated for any reason, including not being able to eat or drink normally, or having less urine/much darker urine than normal for you? No Do you check your daily weight at home? No Are you having any other symptoms that your PCP needs to know about? Yes Symptom Escalation The patient required an escalation for symptom(s)? No Medications Do you have any questions about taking your medication or which medications you should be on? No Do you need any medication refills at this time, including any of the medications you might take only when needed? No Social We would like to make sure you have what you need so that your basic needs are met- including your personal safety, food, housing and medications? Would you like to speak with a social work support team assoc to help give you support for any of these needs? No It can be normal to feel anxious or down during a time like this. Would you like to talk to a mental health professional about how you have been feeling? No Closing Thank you for taking the time to talk with me today. We want to work with you to ensure that we arekeeping your medical condition(s) well-controlled and to keep you healthy and out of the doctor's office or hospital. It s also not too late for me to sign you up for automated weekly questionnaires through [employer]. This is an easy way for us to stay connected each week. Are you interested? No, I understand. We can always sign you up in the future if you change your mind. Just as a reminder, will continue to call you every other week to check in on your health. Our calls should take 10-15 minutes or less. Remember, if you have concerns in between our calls, please call your PCP's office right away. Thank you. Enter next patient outreach date for two weeks on the same day of the week as today in the Track PtOutreach and End outreach. Wilton Palma RN August 30, 2021 3:44 PM * Louie Silva RN - 08/29/2021 10:37 AM EDT INSIGHT CDM TELEPHONIC OUTREACH Provider Action/FYI: Call to Pt left a message to verify CKD or other symptom status and needs. Contact made with patient: No - Left message Anderson my name is Wilton Palma RN your Loading Shovel Oiler from the [facility] I am calling today for your bi-weekly check in. I am sorry I missed your call. I will reach out to you again tomorrow. (if the third call I will reach out to you again next week) Enter next patient outreach date forthe using the Track Pt Outreach. End outreach. Wilton Palma RN August 29, 2021 10:37 AM documented in this encounter[facility] History of Present illness Narrative* Heaven Shelley, [employer] LIFT SCOURER - 08/29/2021 10:04 AM EDT Episode Visit Count: 11 Therapist That Will Oversee The Plan Of Care: Neena Start of Care Date: 07/06/21 Plan of Care Certification Date: 09/04/21 Next Certification Due Date: 10/05/21 Patient Identified by Name and Date of : Yes REHABILITATION AND SPORTS THERAPY PHYSICAL THERAPY TREATMENT NOTE ASSESSMENT: Adina David tolerated the session with decreased endurance. He demonstrated difficulty with LE strength and improving balance. Reviewed balance HEP for compliance.Encouraged patient to incorporate HEP between ADLs. . The patient will continue to benefit from ongoing skilled physical therapy to progress toward set goals. PLAN FOR NEXT VISIT: strength and conditioning, balance SUBJECTIVE: Patient reports having issues with kidneys. Fatigue interfering with HEP. Balance been okay but admits should practice SLS more. Pain: Pain Pain Level: 1 Pain Location: Knee - Left;Hip - Left OBJECTIVE MEASURES WITH LEVEL OF FUNCTION: TREATMENT: Therapeutic Exercise: 1: Nustep L6 x 8min - rev HEP, POC, 2: incline stretch 3 x 30 sec 3: HS stretch 3 x 30 sec seated 6: leg press 75# 10 x 3 7: MH heel raises 10 x3 8: HS curl 30# 10 x 3 9: STS x 10 Skilled Intervention: Skilled judgment was provided in selection of appropriate interventions. Correct performance of therapeutic exercises was facilitated with verbal and visual cuing. Neuromuscular Re-Education: 1: SLS 2: Tandem stance 3: SL step fwd/back over aristides 4: mid rows 3pl staggered on airex 15 x 2 Skilled Intervention: Skilled judgment used to assess appropriate program for balance and coordination activity. Billing Therapeutic Exercise Treatment Minutes: 30 Neuromuscular Re-Education Treatment Minutes: 10 Total Treatment Time Minutes (timed/untimed): 45 Heaven Shelley PTA documented in this encounterSelect [facility] History of Present illness Narrative* Sierra Ortiz, PT - 08/27/2021 1:22 PM EDT Episode Visit Count: 10 Therapist That Will Oversee The Plan Of Care: Neena Start of Care Date: 07/06/21 Plan of Care Certification Date: 09/04/21 Next Certification Due Date: 10/05/21 REHABILITATION AND SPORTS THERAPY PHYSICAL THERAPY PROGRESS REPORT PLAN OF CARE UPDATE: Assessment: Adina David demonstrates difficulty with walking in the community, stair negotiation, heavy exertion, lifting and physical activities. He hasmet 2 goals. Patient continues to present with impairments in ADL's, balance, gait, overall function, range of motion and strength that interfere with walking in the community;walking . Current prognosis is Good due to: current objective clinical presentation;good overall health status . He will benefit from continued skilled therapy services to meet the updated goals for this plan of care as noted below. UPDATED 08/27/21 UPDATED 08/09/21 Goals for Episode of Care: created on 07/06/21 through 09/03/21 [place] in home exercise program. ONGOING Patient will decrease pain rating by 2 points to meet minimal clinical important difference for numeric pain rating scale. PROGRESSING Patient will increase passive ROM of left hip to equal that of the right hip to allow pt to to improve gait mechanics / gait pattern and to decrease falls risks . PROGRESSING Patient will demonstrate increase in left lower extremity strength to >=4+/5 in order to improvefunction for basic self-care tasks, home management tasks, light functional tasks and prior functional tasks. MET Patient will Improve Timed Up and Go to <6 seconds to demonstrate decreased risk of falling. PROGRESSING Patient will improve 5 time sit to stand to demonstrate improvement in functional lower extremity strength. MET Normal gait. PROGRESSING Patient will increase balance to 15 seconds for single limb stance on RLE and 15 seconds for singlelimb stance on LLE. REGRESSED Patient Goals: decrease pain; improve function Planned Interventions, Frequency, and Duration: 2x/week, 3 weeks Total Number of Visits Planned: 6 Patient to be seen for Neuromuscular re-education (41536);Therapeutic exercise (37828);Manual therapy (59820);Therapeutic activities (16959);Gait Training (76421);Patient/Family/Caregiver Education;E-Stim Unattended (90090) PLAN FOR NEXT VISIT: strength and conditioning, balance SUBJECTIVE: . Feels like has made progress since starting PT but has had a lot of set backs. Feels 25% better since starting PT. HEP going okay - hasnt been able to keep up with it too well. Feels really fatigued - only getting an hour of sleep a night - keeps having urge to go to the bathroom. Seeing a urologist. Functional Limitations: walking in the community;walking Pain: Pain Pain Level: 1 PROMIS Scales T-scores: mean of general population = 50. 5 points is clinically meaningfully difference Percentiles provide an indication of how the patient's score ranks in relation to the general population. Higher percentile rankings indicate better function/quality of life. 50th percentile is the average of the general population and indicates half of respondents had a worse score. T-scores: mean of general population = 50. 5 points is clinically meaningfully difference Percentiles provide an indication of how the patient's score ranks in relation to the general population. Higher percentile rankings indicate better function/quality of life. 50th percentile is the average of the general population and indicates half of respondents had a worse score. OBJECTIVE MEASURES WITH LEVEL OF FUNCTION: LE Strength L Hip Extension: 5/5 L Hip Flexion (L2): 4+/5 L Hip ABduction: 4+/5 L Knee Extension (L3): 5/5 L Knee Flexion: 5/5 Functional Performance Test Results 5 Times Sit to Stand Test : 14.52 sec Timed Up and Go (sec): 9.36 sec Unilateral Stance Time R Unilateral Stance Time (sec): 12 sec L Unilateral Stance Time (sec): 4 sec TREATMENT: Therapeutic Exercise: 1: Nustep L6 x 7min - rev HEP, POC, 2: incline stretch 3 x 30 sec 3: HS stretch 3 x 30 sec seated 4: progress note tests and measures 5: SL leg press 45# 10x3 6: leg press 80# 10 x 3 7: Heel raises 3x10 Skilled Intervention: Patient was educated in proper exercise technique and purpose for exercises. Reviewed and educated patient on additions/changes for home exercise program as above (*). Educated patient on rationale for performing exercises in regards to ROM and function . Patient education as noted. Billing Therapeutic Exercise Treatment Minutes: 40 Total Treatment Time Minutes (timed/untimed): 40 Sierra Ortiz PT documented in this encounterSelect [facility] Miscellaneous Notes* Telephone Encounter - Rosalinda Melchor LPN - 08/21/2021 8:44 AM EDT Pharmacy faxed requesting the following refill Refill(s) Requested: Pending Prescriptions Disp Refills DOXYCYCLINE HYCLATE 100 MG CAPSULE 60 capsule 0 Sig: Take 1 capsule by mouth twice daily for 7 days JEOVANNY: Yes ALLERGIES Allergen Reactions Doxycycline Intolerance Rash, diarrhea Penicillin Hives (home) [phone] (cell) Last Office Visit Date: 07/17/2021 Last [facility] Visit: Visit date not found Future Appointment: Visit date not found The patients preferred pharmacy has been captured for this encounter? yes Request is for script(s) to be escript to pharmacy. Rosalinda Melchor LPN documented in this encounterSelect [facility]-04-2022 Miscellaneous Notes* Telephone Encounter - Lani Ochoa - 08/15/2021 1:18 PM EDT Patient informed of elevated PSA 10.35 and to get repeat PSA in 4 - 6 weeks. Patient verbalized understanding. * Telephone Encounter - Yris Hahn Cma - 08/15/2021 1:09 PM EDT Left message for patient to return call to office. Yris Hahn Cma * Telephone Encounter - Yris Hahn Cma - 08/15/2021 1:08 PM EDT ----- Message from Loy Mcallister MD sent at 08/15/2021 11:18 AM EDT ----- Inform patient that PSA has jumped to 10.35. This is essentially double what it was 6 months ago. Iwant him to repeat a PSA in 4 to [address] the order. If it is still this high we will get an MRI of his prostate. documented in this encounterSelect [facility]22 Miscellaneous Notes* Telephone Encounter - Alison Ibarra RN - 08/14/2021 9:03 AM EDT Order for CBC/D placed by Dr. Dale at 0848 for lab collect/routine. Alison Ibarra RN * Telephone Encounter - Derek Horne MA - 08/14/2021 8:47 AM EDT Pt came in today for lab work while already here the lab stated they couldn't find his order I found and printed it and gave him a post it note with where they could find it. The lab called up the order was placed as a office visit note and needs to be input differently so they can draw it. Derek Horne MA documented in this encounterSelect [facility]-2022 History of Present illness Narrative* Heaven Shelley PTA - 08/14/2021 7:34 AM EDT Episode Visit Count: 9 Therapist That Will Oversee The Plan Of Care: Neena Start of Care Date: 07/06/21 Plan of Care Certification Date: 07/06/21 Next Certification Due Date: 09/03/21 Patient Identified by Name and Date of : Yes REHABILITATION AND SPORTS THERAPY PHYSICAL THERAPY TREATMENT NOTE ASSESSMENT: Adina David tolerated the session with fatigue. He demonstrated difficulty with balance on uneven surfaces and improvements in strength progression. The patient will continue to benefit from ongoing skilled physical therapy to progress toward set goals. PLAN FOR NEXT VISIT: strength and conditioning, balance SUBJECTIVE: Patient reports complying with HEP and balance has been good. Pain: Pain Pain Level: 2 Pain Location: Knee - Left OBJECTIVE MEASURES WITH LEVEL OF FUNCTION: TREATMENT: Therapeutic Exercise: 1: Nustep L6 x 7min - rev HEP, POC, 2: incline stretch 3 x 30 sec 3: HS stretch 3 x 30 sec seated 5: SL leg press 45# 10x3 6: leg press 75# 10 x 3 7: mid row - tandem stance 4pl 15 x 2 8: HS curl 30# 10 x 3 11: STS x 10 Skilled Intervention: Skilled judgment was provided in selection of appropriate interventions. Neuromuscular Re-Education: 1: Alt toe taps to cones 2: walk along foam with walking sticks 3x CGA 3: 2x4: tandem walking 4: --sidestepping 5: --minisquats Skilled Intervention: Skilled judgment used to assess appropriate program for balance and coordination activity. Billing Therapeutic Exercise Treatment Minutes: 25 Neuromuscular Re-Education Treatment Minutes: 15 Total Treatment Time Minutes (timed/untimed): 45 Heaven Shelley PTA documented in this encounterSelect [facility] History of Present illness Narrative* Louie Silva RN - 08/13/2021 12:48 PM EDT INSIGHT CDM TELEPHONIC OUTREACH Provider Action/FYI: Spk with Pt who denies new or worsening CKD or other symptoms Pt notes he urinates often, is taking Ditropan follows with Urology Dr. Mcallister Contact made with patient: Yes Patient identified by name and . Discussed care with patient It s nice talking to you again. As a reminder, this is our bi-weekly check-in where I will be asking you questions about your health. This will only take a few minutes of your time. Is this a good time? Yes Symptoms What Chronic Disease(s) does the patient have: CKD Do you check your blood pressures at home? No Do you have new or worse shortness of breath with activity? No Do you feel like you are dehydrated for any reason, including not being able to eat or drink normally, or having less urine/much darker urine than normal for you? No Do you check your daily weight at home? No Are you having any other symptoms that your PCP needs to know about? No Symptom Escalation The patient required an escalation for symptom(s)? No Medications Do you have any questions about taking your medication or which medications you should be on? No Do you need any medication refills at this time, including any of the medications you might take only when needed? No Social We would like to make sure you have what you need so that your basic needs are met- including your personal safety, food, housing and medications? Would you like to speak with a social work support team assoc to help give you support for any of these needs? No It can be normal to feel anxious or down during a time like this. Would you like to talk to a mental health professional about how you have been feeling? No Closing Thank you for taking the time to talk with me today. We want to work with you to ensure that we arekeeping your medical condition(s) well-controlled and to keep you healthy and out of the doctor's office or hospital. It s also not too late for me to sign you up for automated weekly questionnaires through [employer]. This is an easy way for us to stay connected each week. Are you interested? No, I understand. We can always sign you up in the future if you change your mind. Just as a reminder, will continue to call you every other week to check in on your health. Our calls should take 10-15 minutes or less. Remember, if you have concerns in between our calls, please call your PCP's office right away. Thank you. Enter next patient outreach date for two weeks on the same day of the week as today in the Track PtOutreach and End outreach. Wilton Palma RN August 13, 2021 12:48 PM documented in this encounterSelect [facility]04[facility]28-2022 Miscellaneous Notes* Telephone Encounter - Ary Araujo Travon - 08/09/2021 2:47 PM EDT Medical supplies and equipment form placed on Richard's desk. documented in this encounterSelect [facility]04-28-2022 History of Present illness Narrative* Sierra Turazia, PT - 08/09/2021 1:10 PM EDT Episode Visit Count: 8 Therapist That Will Oversee The Plan Of Care: Neena Start of Care Date: 07/06/21 Plan of Care Certification Date: 07/06/21 Next Certification Due Date: 09/03/21 REHABILITATION AND SPORTS THERAPY PHYSICAL THERAPY PROGRESS REPORT PLAN OF CARE UPDATE: Assessment: Adina David demonstrates improvements in rising from a chair, standing and walking and difficulty with walking in the community, heavy lifting, and recreational activities. He hasprogressedtoward goals. Patient continues to present with impairments in ADL's, balance, flexibility, gait, overall function, range of motion and strength that interfere with walking in the community;walking .Current prognosis is Good due to: current objective clinical presentation;good overall health status . He will benefit from continued skilled therapy services to meet the updated goals for this plan of care as noted below. UPDATED 08/09/21 Goals for Episode of Care: created on 07/06/21 through 09/03/21 [place] in home exercise program. ONGOING Patient will decrease pain rating by 2 points to meet minimal clinical important difference for numeric pain rating scale. PROGRESSING Patient will increase passive ROM of left hip to equal that of the right hip to allow pt to to improve gait mechanics / gait pattern and to decrease falls risks . PROGRESSING Patient will demonstrate increase in left lower extremity strength to >=4+/5 in order to improvefunction for basic self-care tasks, home management tasks, light functional tasks and prior functional tasks. PROGRESSING Patient will Improve Timed Up and Go to <6 seconds to demonstrate decreased risk of falling. NT Patient will improve 5 time sit to stand to demonstrate improvement in functional lower extremity strength. PROGRESSING Normal gait. PROGRESSING Patient will increase balance to 15 seconds for single limb stance on RLE and 15 seconds for singlelimb stance on LLE. REGRESSED Patient Goals: decrease pain; improve function Planned Interventions, Frequency, and Duration: 2x/week, 4 weeks Total Number of Visits Planned: 8 Patient to be seen for Neuromuscular re-education (92457);Therapeutic exercise (17003);Manual therapy (78422);Therapeutic activities (75402);Gait Training (61355);Patient/Family/Caregiver Education;E-Stim Unattended (89350) PLAN FOR NEXT VISIT: strength and conditioning, balance SUBJECTIVE: Patient Reason for Visit: L LE and deconditioning. Feels like had made progress since starting PT. Feels 65% better since starting. Still having SOB and fatigue in legs. Functional Limitations: walking in the community;walking Pain: Pain Pain Level: 0 PROMIS Scales T-scores: mean of general population = 50. 5 points is clinically meaningfully difference Percentiles provide an indication of how the patient's score ranks in relation to the general population. Higher percentile rankings indicate better function/quality of life. 50th percentile is the average of the general population and indicates half of respondents had a worse score. T-scores: mean of general population = 50. 5 points is clinically meaningfully difference Percentiles provide an indication of how the patient's score ranks in relation to the general population. Higher percentile rankings indicate better function/quality of life. 50th percentile is the average of the general population and indicates half of respondents had a worse score. OBJECTIVE MEASURES WITH LEVEL OF FUNCTION: LE AROM L Hip Flexion: 90 Degrees L Hip Internal Rotation: 10 Degrees L Hip External Rotation: 30 Degrees LE Strength L Hip Extension: 4/5 L Hip Flexion (L2): 4+/5 L Hip ABduction: 4/5 L Knee Extension (L3): 5/5 L Knee Flexion: 5/5 L Ankle Dorsiflexion (L4): 5/5 Balance Static Standing Balance: Single Leg Stance Single Leg Stance: R: 3 sec; L: 0 sec Functional Performance Test Results 5 Times Sit to Stand Test : 15.73 sec TREATMENT: Therapeutic Exercise: 1: Nustep L6 x6 min - rev HEP, POC, 2: progress note Skilled Intervention: Patient was educated in proper exercise technique and purpose for exercises. Reviewed and educated patient on additions/changes for home exercise program as above (*). Educated patient on rationale for performing exercises in regards to ROM and function . Patient education as noted. Neuromuscular Re-Education: 1: walk along foam with walking sticks 3x CGA 2: SL tapping to cones with no UE support 3: side stepping over hurdles with no UE support 4: fwd stepping over hurdles with no UE support Skilled Intervention: Skilled judgment used to assess appropriate program for balance and coordination activity. Insured patient safety with use of gait belt Patient education as noted. Billing Therapeutic Exercise Treatment Minutes: 15 Neuromuscular Re-Education Treatment Minutes: 25 Total Treatment Time Minutes (timed/untimed): 40 Sierra Ortiz PT documented in this encounterSelect [facility] History of Present illness Narrative* Louie Silva RN - 08/06/2021 12:50 PM EDT INSIGHT CD TELEPHONIC OUTREACH Provider Action/FYI: Call to Pt left a message to verify CKD or other symptom concerns. Contact made with patient: No - Left message Anderson my name is Wilton Palma RN your Loading Shovel Oiler [facility] the [facility] I am calling today for your bi-weekly check in. I am sorry I missed your call. I will reach out to you again tomorrow. (if the third call I will reach out to you again next week) Enter next patient outreach date forthe following using the Track Pt Outreach. End outreach. Wilton Palma RN August 06, 2021 12:50 PM documented in this encounterSelect Medical [facility]ty [facility]04-20-2022 Miscellaneous Notes* Telephone Encounter - Ulises Ramos DO - 08/01/2021 4:08 PM EDT Will do * Telephone Encounter - Bernarda Sarah RN - 08/01/2021 3:24 PM EDT Insurance will not pay for omeprazole 20 mg BID. They prefer to pay for once daily dosing. Would 40mg once daily be appropriate? If so, please send in a new rx. documented in this encounterSelect [facility]04[facility]-2022 History of Present illness Narrative* Heaven Shelley PTA - 08/01/2021 11:25 AM EDT Episode Visit Count: 7 Therapist That Will Oversee The Plan Of Care: Ayesha/Angel Start of Care Date: 07/06/21 Plan of Care Certification Date: 07/06/21 Next Certification Due Date: 09/03/21 Patient Identified by Name and Date of : Yes REHABILITATION AND SPORTS THERAPY PHYSICAL THERAPY TREATMENT NOTE ASSESSMENT: Adina David tolerated the session with no issues. He demonstrated improvements in strength progression. Cues for posture. The patient will continue to benefit from ongoing skilled physical therapy to progress toward set goals. PLAN FOR NEXT VISIT: Progress note due SUBJECTIVE: Patient reports R shoulder bothered him last visit. Complying with HEP. Pain: Pain Additional Pain Information : Specific pain level not discussed in order to focus on movement/functional goals OBJECTIVE MEASURES WITH LEVEL OF FUNCTION: TREATMENT: Therapeutic Exercise: 1: Nustep L 6 x 6 min concurrent with pt re-ed on HEP and fall prevention-mild SOB 2: incline stretch 3 x 30 sec 3: HS stretch 3 x 30 sec seated 4: SKTC 20 x 2 5: SL leg press 35# 10x3 6: leg press 75# 10 x 3 7: mid row - tandem stance 4pl 15 x 2 8: HS curl 30# 10 x 3 9: SLR 10 x 2 10: Bridging 10 x 2 Skilled Intervention: Skilled judgment was provided in selection of appropriate interventions. Correct performance of therapeutic exercises was facilitated with verbal and visual cuing. Billing Therapeutic Exercise Treatment Minutes: 40 Total Treatment Time Minutes (timed/untimed): 40 Heaven Shelley PTA documented in this encounterSelect [facility] History of Present illness Narrative* Heaven Shelley PTA - 07/30/2021 10:47 AM EDT Episode Visit Count: 6 Therapist That Will Oversee The Plan Of Care: Ayesha/Angel Start of Care Date: 07/06/21 Plan of Care Certification Date: 07/06/21 Next Certification Due Date: 09/03/21 Patient Identified by Name and Date of : Yes REHABILITATION AND SPORTS THERAPY PHYSICAL THERAPY TREATMENT NOTE ASSESSMENT: Adina David tolerated the session with some fatigue and min SOB.. He demonstrated difficulty with hip strength and flexibility. The patient will continue to benefit from ongoing skilled physical therapy to progress toward set goals. PLAN FOR NEXT VISIT: proximal hip strengthening/LE flexibility/balance and gait training SUBJECTIVE: Patient to dept at wrong time but able to accommodate. Partially complying with HEP. No AD. Balancehas been good. Has been walking on path with inclines and only able to do half of what he used to before having COVID. Pain: Pain Pain Level: 2 Pain Location: Knee - Left OBJECTIVE MEASURES WITH LEVEL OF FUNCTION: TREATMENT: Therapeutic Exercise: 1: Nustep L 6 x 6 min concurrent with pt re-ed on HEP and fall prevention-mild SOB 2: incline stretch 3 x 30 sec 3: HS stretch 3 x 30 sec seated 5: SL leg press 35# 10x3 6: leg press 75# 10 x 3 7: mid row - tandem stance 4pl 15 x 2 8: HS curl 30# 10 x 3 10: high row with bar 4 pl 10 x 3 11: Monster walk forward/backward and lateral with pink band 12: Standing 3 way hip with pink band x 10 each CELSO Skilled Intervention: Skilled judgment was provided in selection of appropriate interventions. Correct performance of therapeutic exercises was facilitated with verbal and visual cuing. Billing Therapeutic Exercise Treatment Minutes: 45 Total Treatment Time Minutes (timed/untimed): 45 Heaven Shelley PTA documented in this encounter[facility] Miscellaneous Notes* Telephone Encounter - Symone Paiz - 07/27/2021 5:41 PM EDT Referral submitted to [facility] Contact Center ([phone]). They will contact the patient to schedule.Confirmation number: [id number] Initial consult ENT H92.01 Right ear pain J34.89 Nasal sore Medicare Sandra documented in this encounterSelect [facility]04-15-2022 History of Present illness Narrative* Sierra Ortiz, PT - 07/27/2021 10:51 AM EDT Episode Visit Count: 5 Therapist That Will Oversee The Plan Of Care: Miriam Hodge Start of Care Date: 07/06/21 Plan of Care Certification Date: 07/06/21 Next Certification Due Date: 09/03/21 REHABILITATION AND SPORTS THERAPY PHYSICAL THERAPY TREATMENT NOTE ASSESSMENT: Adina David tolerated the session with expected muscle soreness and no issues. He demonstrated difficulty with SL leg press and improvements in exercise tolerance. The patient will continueto benefit from ongoing skilled physical therapy to progress toward set goals. PLAN FOR NEXT VISIT: proximal hip strengthening/LE flexibility/balance and gait training SUBJECTIVE: Feels good today. [place] pretty worn out after last PT session - hasnt done exercises since except stretches and walking. Pain: Pain Pain Level: 1 Pain Location: Hip - Left OBJECTIVE MEASURES WITH LEVEL OF FUNCTION: TREATMENT: Therapeutic Exercise: 1: Nustep L 6 x 6 min concurrent with pt re-ed on HEP and fall prevention-mild SOB 2: incline stretch 3 x 30 sec 5: SL leg press 35# 10x3 6: leg press 75# 10 x 3 7: mid row - tandem stance 3 pl 10 x 4 8: HS curl 30# 10 x 3 9: SKTC 3x30 Skilled Intervention: Patient was educated in proper exercise technique and purpose for exercises. Reviewed and educated patient on additions/changes for home exercise program as above (*). Educated patient on rationale for performing exercises in regards to ROM and function . Patient education as noted. Billing Therapeutic Exercise Treatment Minutes: 40 Total Treatment Time Minutes (timed/untimed): 40 Sierra Ortiz PT documented in this encounterSelect [facility]04-14-2022 History of Present illness Narrative* Louie Silva RN - 07/26/2021 10:10 AM EDT INSIGHT CDM TELEPHONIC OUTREACH Provider Action/FYI: Call to Pt left a message to verify CKD or other symptom status or needs. Contact made with patient: No - Left message Anderson my name is Wilton Palma RN your Loading Shovel Oiler [facility] the [facility] I am calling today for your bi-weekly check in. I am sorry I missed your call. I will reach out to you again tomorrow. (if the third call I will reach out to you again next week) Enter next patient outreach date forthe following using the Track Pt Outreach. End outreach. Wilton Palma RN July 26, 2021 10:10 AM documented in this encounterSelect Medical [facility]04-13-2022 Miscellaneous Notes* Telephone Encounter - Odilon Puentes - 07/25/2021 1:40 PM EDT Mon form on pcp desks for review and sign documented in this encounterSelect Medical [facility]04-13-2022 History of Present illness Narrative* Heaven Shelley PTA - 07/25/2021 12:49 PM EDT Episode Visit Count: 4 Therapist That Will Oversee The Plan Of Care: Miriam Hodge Start of Care Date: 07/06/21 Plan of Care Certification Date: 07/06/21 Next Certification Due Date: 09/03/21 Patient Identified by Name and Date of : Yes REHABILITATION AND SPORTS THERAPY PHYSICAL THERAPY TREATMENT NOTE ASSESSMENT: Adina David tolerated the session with shortness of breath. He demonstrated difficulty with activity tolerance requiring occasional rest breaks. Able to progress strengthening for leg presswith cues for breathing techniques. . The patient will continue to benefit from ongoing skilled physical therapy to progress toward set goals. PLAN FOR NEXT VISIT: proximal hip strengthening/LE flexibility/balance and gait training SUBJECTIVE: Patient Reason for Visit: L LE and deconditioning Patient reports felt ok after last visit. Got his 4th Covid vaccine today and arm a little sore. Pain: Pain Pain Level: 3 Pain Location: Hip - Left OBJECTIVE MEASURES WITH LEVEL OF FUNCTION: TREATMENT: Therapeutic Exercise: 1: Nustep L 6 x 6 min concurrent with pt re-ed on HEP and fall prevention-mild SOB 2: incline stretch 3 x 30 sec 3: HS stretch 3 x 30 sec seated 5: SKTC 20 x 2 6: leg press 70# 10 x 3 7: mid row - tandem stance 3 pl 10 x 4 8: HS curl 30# 10 x 3 9: high row with bar 4 pl 10 x 3 10: Bridging 10 x 2 Skilled Intervention: Skilled judgment was provided in selection of appropriate interventions. Correct performance of therapeutic exercises was facilitated with verbal and visual cuing. Billing Therapeutic Exercise Treatment Minutes: 40 Total Treatment Time Minutes (timed/untimed): 40 Heaven Shelley PTA documented in this encounterSelect [facility]04-08-2022 Miscellaneous Notes* Telephone Encounter - Halle Dale MD - 07/20/2021 2:59 PM EDT I called Mr. David. No need for iron infusion. Continue oral iron and hydrea as prescribed. * Telephone Encounter - Derek Horne MA - 07/20/2021 10:58 AM EDT Pt stopped by his grazing aide thinks he needs an iron transfusion but wanted to see what Dr Dale thought. Derek Horne MA documented in this encounterSelect Medical [facility]04-08-2022 History of Present illness Narrative* Eileen Medrano PTA - 07/20/2021 10:06 AM EDT Episode Visit Count: 3 Therapist That Will Oversee The Plan Of Care: Zachary Hodge Start of Care Date: 07/06/21 Plan of Care Certification Date: 07/06/21 Next Certification Due Date: 09/03/21 Patient Identified by Name and Date of : Yes REHABILITATION AND SPORTS THERAPY PHYSICAL THERAPY TREATMENT NOTE ASSESSMENT: Adina David tolerated the session with fatigue and expected muscle soreness. He demonstrated improvements in progression of strengthening exercises without increasing complaints of pain. The patient will continue to benefit from ongoing skilled physical therapy to progress toward set goals. PLAN FOR NEXT VISIT: proximal hip strengthening/LE flexibility/balance and gait training SUBJECTIVE: Patient Reason for Visit: L LE and deconditioning Patient doing well - feels like he is improved. Got a good workout last visit, but feels like he can do more now. Thinks he could possibly walk about a mile without consequence. Pain: Pain Pain Level: 1 Pain Location: Hip - Left OBJECTIVE MEASURES WITH LEVEL OF FUNCTION: progressing strength per flowsheet TREATMENT: Therapeutic Exercise: 1: Nustep L 6 x 6 min concurrent with pt re-ed on HEP and fall prevention-mild SOB 2: incline stretch 3 x 30 sec 3: HS stretch 3 x 30 sec 4: Hip flexor stretch at stairs x 20 sec 5: SKTC 20 x 2 6: leg press 70# 10 x 3 7: mid row - tandem stance 3 pl 10 x 3 8: HS curl 30# 10 x 3 9: high row with bar 4 pl 10 x 3 10: supine trunk rotation 20 x 3 celso Skilled Intervention: Patient was educated in proper exercise technique and purpose for exercises. Skilled judgment was provided in selection of appropriate interventions. Correct performance of therapeutic exercises was facilitated with verbal and visual cuing. Billing Therapeutic Exercise Treatment Minutes: 40 Total Treatment Time Minutes (timed and untimed codes) : 45 Eileen Medrano PTA documented in this encounterSelect Medical [facility]04-06-2022 Instructions* Patient Instructions* Loy Mcallister MD - 07/18/2021 2:20 PM EDT It was great to see you today! Please get a PSA prior to seeing me in 6 months. Lets try some oxybutynin at night. documented in this encounterSelect [facility]04-06-2022 History of Present illness Narrative* Loy Mcallister MD - 07/18/2021 2:05 PM EDT Images from the original note were not included. [facility] ESTABLISHED PATIENT OFFICE VISIT HISTORY OF PRESENT ILLNESS Adina David is a 65 year old male who presents with hx RCC T3a s/p right nx, ROQUE in prostate and hydrocele. Doing well urologically. Stream is weak. Nocturia 4-5x/night. Hasn't been able to wear CPAP. Was not better when was wearing it. PSA was 5.65. Patient Entered Questionnaires PROMIS Global Health Percentiles provide an indication of how the patient's score ranks in relation to the general population. Higher percentile rankings indicate better function/quality of life. 50th percentile is the average of the general population and indicates half of respondents had a worse score. Review of Systems The remainder of the ROS was reviewed and is negative. LAB Creatinine Date Value Ref Range Status 06/19/2021 1.78 (H) 0.73 - 1.22 mg/dL Final PSA (ng/mL) Date Value 01/19/2021 5.65 03/08/2020 4.68 06/18/2019 5.08 03/04/2019 4.51 10/12/2018 3.72 05/14/2018 5.1 07/29/2016 4.25 GLUCOSE UA (POCT) Negative 07/18/2021 BILIRUBIN UA (POCT) Negative 07/18/2021 KETONE UA (POCT) Negative 07/18/2021 SPECIFIC GRAVITY UA (POCT) 1.020 07/18/2021 HEMOGLOBIN/BLOOD UA (POCT) Negative 07/18/2021 PH UA (POCT) 7.0 07/18/2021 PROTEIN UA (POCT) Negative 07/18/2021 UROBILINOGEN UA (POCT) 0.2 07/18/2021 NITRITE UA (POCT) Negative 07/18/2021 LEUKOCYTES UA (POCT) Negative 07/18/2021 COLOR UA (POCT) Yellow 07/18/2021 CLARITY UA (POCT) Clear 07/18/2021 MEDICATIONS oxybutynin (DITROPAN) 5 mg tablet, Take 1 tablet by mouth three times daily. Fluorouracil 5 % cream, APPLY CREAM TOPICALLY TWICE DAILY TO FOREHEAD DIRECTED FOR 14 DAYS BABY ASPIRIN ORAL, Take 81 mg by mouth once daily. hydroxyurea (HYDREA) 500 mg capsule, Take 3 capsules by mouth once daily. apixaban (ELIQUIS) 5 mg tab(s), Take 0.5 tablets by mouth twice daily. valACYclovir (VALTREX) 1 gram, One po bid for 3 days as needed for cold sores magnesium oxide (MAG-OX) 400 mg (241.3 mg magnesium) tablet, Take 1 tablet by mouth once daily evolocumab (REPATHA SURECLICK) 140 mg/mL pen injector, Inject 1 pen (140 mg) subcutaneously every 2weeks. albuterol HFA (PROVENTIL HFA, VENTOLIN HFA) 90 mcg/actuation inhaler, INHALE 1-2 PUFFS EVERY 6 HOURS NEEDED FOR WHEEZING fenofibrate nanocrystallized (TRICOR) 145 mg tablet, Take 1 tablet by mouth once daily omeprazole (PRILOSEC) 20 mg capsule, Take 1 capsule by mouth twice daily calcitriol (ROCALTROL) 0.25 mcg capsule, Take 0.25 mcg by mouth once daily. metoprolol tartrate, short acting, (LOPRESSOR) 50 mg tablet, Take 1 tablet by mouth twice daily ergocalciferol 50,000 unit capsule (VITAMIN D2, DRISDOL), once every month. calcium carbonate (CALCIUM ANTACID) 500 mg chew, One po bid prn gastritis amLODIPine (NORVASC) 10 mg tablet, Take 1 tablet by mouth once daily. aspirin, enteric coated (ASPIRIN, ENTERIC COATED) 325 mg EC tablet, Take 1 tablet by mouth twice daily for 21 days. 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 glover Diverticulitis of intestine with perforation 2004 WITH FISTULA Essential hypertension FHx: colon cancer Mother GERD (gastroesophageal reflux disease) HAS GI - [place] History of chickenpox History of scarlet fever History of spinal fracture 1973 L3-4 Hx of squamous cell carcinoma Hydrocele in adult Hypertriglyceridemia Hypokalemia 03/31/2019 Hypomagnesemia 03/31/2019 Leukocytosis 03/31/2019 Lipoma of back NSTEMI (non-ST elevated myocardial infarction) (HCC) Personal history of skin cancer bcc (r shoulder) 2015, scc (l lateral lower leg) 2018 Renal cancer (HCC) Stage 3 Sleep apnea CPAP PAST SURGICAL HISTORY Procedure Laterality Date BOWEL RESECTION HX 2005 Partial COLONOSCOPY 01/07/2019 hemorrhoids and diverticulosis CYSTOSCOPY 2004 2005 EGD 11/2019 x3 EGD 12/31/2018 Rhodes's, Duodenal erosions. Dr. Enio Degroot. HEMORRHOID SURGERY HX 1999 LAP NEPHRECTOMY Right 2018 DR. MCDONALD PAST SURGICAL HISTORY OF hydrocel PAST SURGICAL HISTORY OF 07/23/2020 left femur STENT PLACEMENT 2018 MARTIN LAD TONSILLECTOMY AND ADENOIDECTOMY HX ads a child FAMILY HISTORY Problem Relation Age of Onset Cancer Mother BOWEL Heart Father Hyperlipidemia Father Diabetes Father Hypertension Father Colon Cancer No Family History SOCIAL HISTORY Social History Tobacco Use Smoking status: Former Smoker Years: 10.00 Types: Cigars, Cigarettes Quit date: 12/21/1990 Years since quittin.5 Smokeless tobacco: Never Used Vaping Use Vaping Use: Never used Substance Use Topics Alcohol use: Yes Comment: very little Drug use: Never BP 140/90 Pulse 90 SpO2 95% Physical Exam Genitourinary: Comments: Right hydrocele well healed. IMAGING ASSESSMENT/PLAN: 1. Elevated prostate specific antigen (PSA) - ICD9: 790.93, ICD10: R97.20 (primary diagnosis) - PSA/PROSTSPECAG DIAG 2. Personal history of renal cancer - ICD9: V10.52, ICD10: Z85.528 3. Hydrocele in adult - ICD9: 603.9, ICD10: N43.3 4. Renal cancer, right (HCC) - ICD9: 189.0, ICD10: C64.1 5. Atypical small acinar proliferation of prostate - ICD9: 236.5, ICD10: N42.32 Reviewed imaging from January. Seems stable c/w CLL - sees onc for. Always need to keep in mind t3 RCC and potential for recurrence. Reviewed psa, repeat in January. Start oxybutynin for nocturia, may need desmopressin if no better. Loy Mcallister Medical Decision Making: Problems: Moderate: 2+ stable chronic illnesses Data: Unique test result(s) reviewed: 2 Unique test(s) ordered: 1 Risk: Moderate: Drug management Medical Decision Making Level: 4 - Moderate This note was partially created using voice recognition software and is inherently subject to errors including those of syntax and sound-alike substitutions which may escape proofreading. In such instances, original meaning may be extrapolated by contextual derivation. documented in this encounterSelect [facility]04-04-2022 Miscellaneous Notes* Telephone Encounter - Love Bowens - 07/16/2021 7:31 AM EDT Spoke w/pt to reschedule today's appt. Pt wanted me to schedule him w/dr. West at . I advised pt I was unable to. Pt hung up, I called back and lvm to call w/any quest and reschedule appt at our office. Love Bowens MA documented in this encounterSelect Medical [facility]03-30-2022 History of Present illness Narrative* Louie Silva RN - 07/11/2021 1:31 PM EDT [facility] CDM Enrollment Provider Action/FYI: Spk with Pt who is in agreement with Telephonic CKD CDM Program, Pt uses a Smart phone, does not think he would answer questionnaires Pt is on Eliquis for recent DVT, Pt denies bleeding from any site. Fell last July Fx his left Femur, was using a cane, No current ambulatory DME utilized Receiving PT 2x week Patient referred by: C Ritu Contact made with patient: Yes - Patient identified by name and . Discussed care with patient Anderson this is Wilton Palma RN and I am calling from Ulises Ramos DO office at the [facility]. I am a RN Loading Shovel Oiler with our [facility] Chronic Disease Management program. Ulises Ramos DO wanted me to reach out to help you manage your health at home. Our goal is to keep you well at home. We want to help you manage your chronic disease by providing a safety net of resources around you, getting you the care you need in a timely manner, and hopefully keep you out of the ED and hospital. I will send you a few questions once a week through your [employer] account. It will automatically show up for you to complete. There are simple questions that will help us identify if you have any concerns or symptoms and I will call you to help get what you need. We will be able to connect you, review your symptoms, do an on demand visit, or communicate with Ulsies Ramos DO if needed. I am going to sign you up for the program now. Enrollment Questions: Let's get you enrolled in the program. No, reason: Other: No Reason Closing: Patient accepts telephonic outreach Thank you for your time today. I am excited to work together inmanaging your health! I will check back within in two weeks to see how things are going. If questions or concerns arise between phone calls, please reach out to your PCP s office. (Place in active status for [facility] and place name in care team and update next patient outreach data to next business d ay two weeks from today s date) Wilton Palma RN July 11, 2021 1:31 PM documented in this encounterSelect Medical [facility]03-30-2022 Evaluation note* Diagnosis Stage 3 chronic kidney disease, unspecified whether stage 3a or 3b CKD (HCC)- Primary documented in this encounter [facility]03[facility] History of Present illness Narrative* Sia Hodge PT - 07/09/2021 10:54 AM EDT Episode Visit Count: 1 Therapist That Will Oversee The Plan Of Care: Zachary Hodge Start of Care Date: 07/06/21 Plan of Care Certification Date: 07/06/21 Next Certification Due Date: 09/03/21 Patient Identified by Name and Date of : Yes REHABILITATION AND SPORTS THERAPY PHYSICAL THERAPY EVALUATION PLAN OF CARE: Assessment: Adina David presents with chief complaint of deconditioning and lower extremity weakness that interferes with walking in the community;walking . He presents with impairments in balance, flexibility, gait, joint mobility, overall function, range of motion, strength and tissue tenderness. Prognosis for therapy is Good due to: current objective clinical presentation;good overall health stat us .He will benefit from skilled therapy services to meet the goals established for this plan of care as noted below. Goals for Episode of Care: created on 07/06/21 through 09/03/21 [place] in home exercise program. Patient will decrease pain rating by 2 points to meet minimal clinical important difference for numeric pain rating scale. Patient will increase passive ROM of left hip to equal that of the right hip to allow pt to to improve gait mechanics / gait pattern and to decrease falls risks . Patient will demonstrate increase in left lower extremity strength to >=4+/5 in order to improvefunction for basic self-care tasks, home management tasks, light functional tasks and prior functional tasks. Patient will Improve Timed Up and Go to <6 seconds to demonstrate decreased risk of falling. Patient will improve 5 time sit to stand to demonstrate improvement in functional lower extremity strength. Normal gait. Patient will increase balance to 15 seconds for single limb stance on RLE and 15 seconds for singlelimb stance on LLE. Patient Goals: decrease pain; improve function Planned Interventions, Frequency, and Duration: Current Frequency: 2x/week Duration: 8 weeks Total Number of Visits Planned: 16 Planned Treatment Interventions: Neuromuscular re-education (22233);Therapeutic exercise (35165);Manual therapy (84019);Therapeutic activities (35417);Gait Training (26982);Patient/Family/Caregiver Education;E-Stim Unattended (46417) PLAN FOR NEXT VISIT: proximal hip strengthening/LE flexibility/balance and gait training Patient demonstrates good understanding of plan of care and treatment. The above goals and plan of care were discussed and agreed upon by patient/family. SUBJECTIVE: Adina David is a 65 year old male seen today for Deconditioning and left LE Pain. Was in PT here at [facility] last fall and early Winter. We had to stop PT in Apr/May due to significant drop in hemoglobin and then he was admitted to [facility] for COVID and a GI bleed. Spent 16 days inpatient and then was discharged home with home PT. He has been doing well since home and hemoglobin is checked once a month. He is now off the cane and has been walking with friends on trails, states his glutes andhamstrings are tired from his last walk. No falls at home since discharge. Patient Goals: decrease pain; improve function Functional Limitations: walking in the community;walking Prior Level of Function: Independent without limitations Relevant History Past Relevant Medical Conditions: Cancer;Complicated Pregnancies/Deliveries;Hypertension;Falls;Blood Disorders Past Relevant Surgical Conditions: Comments Relevant Surgical Conditions Comments: left femur ORIF July/2020 Intake Information: Prescription present Previous Treatment: Physical Therapy ;Surgery Falls Interview: No positive findings with falls interview Aquatic Screen: No Pain: Pain Pain Level: 3 Pain Location: Knee - Left Description: Aching PROMIS Scales T-scores: mean of general population = 50. 5 points is clinically meaningfully difference Percentiles provide an indication of how the patient's score ranks in relation to the general population. Higher percentile rankings indicate better function/quality of life. 50th percentile is the average of the general population and indicates half of respondents had a worse score. T-scores: mean of general population = 50. 5 points is clinically meaningfully difference Percentiles provide an indication of how the patient's score ranks in relation to the general population. Higher percentile rankings indicate better function/quality of life. 50th percentile is the average of the general population and indicates half of respondents had a worse score. OBJECTIVE MEASURES WITH LEVEL OF FUNCTION: LE PROM R Hip Flexion: 110 Degrees R Hip Internal Rotation: 30 Degrees R Hip External Rotation: 35 Degrees L Hip Flexion: 100 Degrees L Hip Internal Rotation: 19 Degrees L Hip External Rotation: 30 Degrees LE Flexibility Flexibility: Hamstring Flexibility;Quadriceps Flexibility R Hamstring Flexibility: minimal limitation L Hamstring Flexibility: minimal limitation R Quadriceps Flexibility: moderate limitation L Quadriceps Flexibility: moderate limitation LE Strength R Hip Extension: 4/5 R Hip Flexion (L2): 5/5 R Hip ABduction: 4/5 R Knee Extension (L3): 5/5 R Knee Flexion: 4+/5 R Ankle Dorsiflexion (L4): 5/5 L Hip Extension: 3+/5 L Hip Flexion (L2): 4/5 L Hip ABduction: 3+/5 L Knee Extension (L3): 5/5 L Ankle Dorsiflexion (L4): 5/5 Functional Performance Test Results Assistive Device: None 5 Times Sit to Stand Test : 15.25 sec Timed Up and Go (sec): 10.17 sec Timed Up and Go - Condition 2 (sec) : 9.02 Unilateral Stance Time R Unilateral Stance Time (sec): 11 sec L Unilateral Stance Time (sec): 9 sec Education: Education Learning Preferences: Demonstration;Explanation Barriers: None Learning/educational needs: Home exercise program;Plan of Care Education Provided: Yes, see treatment interventions for education provided Education Provided To: Patient Education Mode/Type: Explanation/Discussion Response to Education/Teach Back: States/Identifies TREATMENT: PT Treatment Interventions: Therapeutic Exercise Evaluation Therapeutic Exercise: 1: *standing HS stretch 3x30 2: *standing gastroc stretch 3x30 3: *supine bridges 3x10 4: *SKTC 3x20 Skilled Intervention: Patient was educated in proper exercise technique and purpose for exercises. Reviewed and educated patient on additions/changes for home exercise program as above (*). Skilled judgment was provided in selection of appropriate interventions. Provided written instruction for home exercise program to facilitate proper performance and compliance. Correct performance of therapeutic exercises was facilitated with verbal, visual and tactile cuing. Billing * Evaluation Low Complexity: 1 Unit Therapeutic Exercise Treatment Minutes: 10 Total Treatment Time Minutes (timed and untimed codes) : 45 Sia Hodge PT [facility] History of Past illness Narrative* Problem Noted Date Resolved Date Closed left subtrochanteric femur fracture 07/2207/27/2020 Facial numbness 03/31/2019 04/03/2019 GI bleed 12/31/2018 01/11/2019 Frequency of urination 03/19/2018 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 documented as of this encounter (statuses as of 07/09/2021) [address]10-2021 History of Past illness Narrative* Problem Noted Date Resolved Date Closed left subtrochanteric femur fracture 07/2207/27/2020 Facial numbness 03/31/2019 04/03/2019 GI bleed 12/31/2018 01/11/2019 Frequency of urination 03/19/2018 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 documented as of this encounter (statuses as of 07/11/2021) [address]10-2021 History of Past illness Narrative* Problem Noted Date Resolved Date Closed left subtrochanteric femur fracture 07/2207/27/2020 Facial numbness 03/31/2019 04/03/2019 GI bleed 12/31/2018 01/11/2019 Frequency of urination 03/19/2018 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 documented as of this encounter (statuses as of 07/16/2021) [address]10-2021 History of Past illness Narrative* Problem Noted Date Resolved Date Closed left subtrochanteric femur fracture 07/2207/27/2020 Facial numbness 03/31/2019 04/03/2019 GI bleed 12/31/2018 01/11/2019 Frequency of urination 03/19/2018 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 documented as of this encounter (statuses as of 07/18/2021) [address]10-2021 History of Past illness Narrative* Problem Noted Date Resolved Date Closed left subtrochanteric femur fracture 07/2207/27/2020 Facial numbness 03/31/2019 04/03/2019 GI bleed 12/31/2018 01/11/2019 Frequency of urination 03/19/2018 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 documented as of this encounter (statuses as of 07/20/2021) [address]10-2021 History of Past illness Narrative* Problem Noted Date Resolved Date Closed left subtrochanteric femur fracture 07/2207/27/2020 Facial numbness 03/31/2019 04/03/2019 GI bleed 12/31/2018 01/11/2019 Frequency of urination 03/19/2018 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 documented as of this encounter (statuses as of 07/20/2021) [address]10-2021 History of Past illness Narrative* Problem Noted Date Resolved Date Closed left subtrochanteric femur fracture 07/2207/27/2020 Facial numbness 03/31/2019 04/03/2019 GI bleed 12/31/2018 01/11/2019 Frequency of urination 03/19/2018 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 documented as of this encounter (statuses as of 07/25/2021) [address]10-2021 History of Past illness Narrative* Problem Noted Date Resolved Date Closed left subtrochanteric femur fracture 07/2207/27/2020 Facial numbness 03/31/2019 04/03/2019 GI bleed 12/31/2018 01/11/2019 Frequency of urination 03/19/2018 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 documented as of this encounter (statuses as of 07/25/2021) [address]10-2021 History of Past illness Narrative* Problem Noted Date Resolved Date Closed left subtrochanteric femur fracture 07/2207/27/2020 Facial numbness 03/31/2019 04/03/2019 GI bleed 12/31/2018 01/11/2019 Frequency of urination 03/19/2018 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 documented as of this encounter (statuses as of 07/26/2021) [address]10-2021 History of Past illness Narrative* Problem Noted Date Resolved Date Closed left subtrochanteric femur fracture 07/2207/27/2020 Facial numbness 03/31/2019 04/03/2019 GI bleed 12/31/2018 01/11/2019 Frequency of urination 03/19/2018 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 documented as of this encounter (statuses as of 07/26/2021) [address]10-2021 History of Past illness Narrative* Problem Noted Date Resolved Date Closed left subtrochanteric femur fracture 07/2207/27/2020 Facial numbness 03/31/2019 04/03/2019 GI bleed 12/31/2018 01/11/2019 Frequency of urination 03/19/2018 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 documented as of this encounter (statuses as of 07/27/2021) [address]10-2021 History of Past illness Narrative* Problem Noted Date Resolved Date Closed left subtrochanteric femur fracture 07/2207/27/2020 Facial numbness 03/31/2019 04/03/2019 GI bleed 12/31/2018 01/11/2019 Frequency of urination 03/19/2018 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 documented as of this encounter (statuses as of 07/27/2021) [address]10-2021 History of Past illness Narrative* Problem Noted Date Resolved Date Closed left subtrochanteric femur fracture 07/2207/27/2020 Facial numbness 03/31/2019 04/03/2019 GI bleed 12/31/2018 01/11/2019 Frequency of urination 03/19/2018 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 documented as of this encounter (statuses as of 07/30/2021) [address]10-2021 History of Past illness Narrative* Problem Noted Date Resolved Date Closed left subtrochanteric femur fracture 07/2207/27/2020 Facial numbness 03/31/2019 04/03/2019 GI bleed 12/31/2018 01/11/2019 Frequency of urination 03/19/2018 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 documented as of this encounter (statuses as of 08/01/2021) [address]10-2021 History of Past illness Narrative* Problem Noted Date Resolved Date Closed left subtrochanteric femur fracture 07/2207/27/2020 Facial numbness 03/31/2019 04/03/2019 GI bleed 12/31/2018 01/11/2019 Frequency of urination 03/19/2018 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 documented as of this encounter (statuses as of 08/02/2021) [address]10-2021 History of Past illness Narrative* Problem Noted Date Resolved Date Closed left subtrochanteric femur fracture 07/2207/27/2020 Facial numbness 03/31/2019 04/03/2019 GI bleed 12/31/2018 01/11/2019 Frequency of urination 03/19/2018 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 documented as of this encounter (statuses as of 08/07/2021) [address]10-2021 History of Past illness Narrative* Problem Noted Date Resolved Date Closed left subtrochanteric femur fracture 07/2207/27/2020 Facial numbness 03/31/2019 04/03/2019 GI bleed 12/31/2018 01/11/2019 Frequency of urination 03/19/2018 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 documented as of this encounter (statuses as of 08/09/2021) [address]10-2021 History of Past illness Narrative* Problem Noted Date Resolved Date Closed left subtrochanteric femur fracture 07/2207/27/2020 Facial numbness 03/31/2019 04/03/2019 GI bleed 12/31/2018 01/11/2019 Frequency of urination 03/19/2018 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 documented as of this encounter (statuses as of 08/09/2021) [address]10-2021 History of Past illness Narrative* Problem Noted Date Resolved Date Closed left subtrochanteric femur fracture 07/2207/27/2020 Facial numbness 03/31/2019 04/03/2019 GI bleed 12/31/2018 01/11/2019 Frequency of urination 03/19/2018 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 documented as of this encounter (statuses as of 08/13/2021) [address]10-2021 History of Past illness Narrative* Problem Noted Date Resolved Date Closed left subtrochanteric femur fracture 07/2207/27/2020 Facial numbness 03/31/2019 04/03/2019 GI bleed 12/31/2018 01/11/2019 Frequency of urination 03/19/2018 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 documented as of this encounter (statuses as of 08/14/2021) [address]10-2021 History of Past illness Narrative* Problem Noted Date Resolved Date Closed left subtrochanteric femur fracture 07/2207/27/2020 Facial numbness 03/31/2019 04/03/2019 GI bleed 12/31/2018 01/11/2019 Frequency of urination 03/19/2018 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 documented as of this encounter (statuses as of 08/14/2021) [address]10-2021 History of Past illness Narrative* Problem Noted Date Resolved Date Closed left subtrochanteric femur fracture 07/2207/27/2020 Facial numbness 03/31/2019 04/03/2019 GI bleed 12/31/2018 01/11/2019 Frequency of urination 03/19/2018 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 documented as of this encounter (statuses as of 08/14/2021) [address]10-2021 History of Past illness Narrative* Problem Noted Date Resolved Date Closed left subtrochanteric femur fracture 07/2207/27/2020 Facial numbness 03/31/2019 04/03/2019 GI bleed 12/31/2018 01/11/2019 Frequency of urination 03/19/2018 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 documented as of this encounter (statuses as of 08/15/2021) [address]10-2021 History of Past illness Narrative* Problem Noted Date Resolved Date Closed left subtrochanteric femur fracture 07/2207/27/2020 Facial numbness 03/31/2019 04/03/2019 GI bleed 12/31/2018 01/11/2019 Frequency of urination 03/19/2018 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 documented as of this encounter (statuses as of 08/15/2021) [address]10-2021 History of Past illness Narrative* Problem Noted Date Resolved Date Closed left subtrochanteric femur fracture 07/2207/27/2020 Facial numbness 03/31/2019 04/03/2019 GI bleed 12/31/2018 01/11/2019 Frequency of urination 03/19/2018 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 documented as of this encounter (statuses as of 08/21/2021) [address]10-2021 History of Past illness Narrative* Problem Noted Date Resolved Date Closed left subtrochanteric femur fracture 07/2207/27/2020 Facial numbness 03/31/2019 04/03/2019 GI bleed 12/31/2018 01/11/2019 Frequency of urination 03/19/2018 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 documented as of this encounter (statuses as of 08/27/2021) [address]10-2021 History of Past illness Narrative* Problem Noted Date Resolved Date Closed left subtrochanteric femur fracture 07/2207/27/2020 Facial numbness 03/31/2019 04/03/2019 GI bleed 12/31/2018 01/11/2019 Frequency of urination 03/19/2018 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 documented as of this encounter (statuses as of 08/29/2021) [address]10-2021 History of Past illness Narrative* Problem Noted Date Resolved Date Closed left subtrochanteric femur fracture 07/2207/27/2020 Facial numbness 03/31/2019 04/03/2019 GI bleed 12/31/2018 01/11/2019 Frequency of urination 03/19/2018 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 documented as of this encounter (statuses as of 08/30/2021) [address]10-2021 History of Past illness Narrative* Problem Noted Date Resolved Date Closed left subtrochanteric femur fracture 07/2207/27/2020 Facial numbness 03/31/2019 04/03/2019 GI bleed 12/31/2018 01/11/2019 Frequency of urination 03/19/2018 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 documented as of this encounter (statuses as of 09/05/2021) [address]10-2021 History of Past illness Narrative* Problem Noted Date Resolved Date Closed left subtrochanteric femur fracture 07/2207/27/2020 Facial numbness 03/31/2019 04/03/2019 GI bleed 12/31/2018 01/11/2019 Frequency of urination 03/19/2018 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 documented as of this encounter (statuses as of 09/05/2021) [address]10-2021 History of Past illness Narrative* Problem Noted Date Resolved Date Closed left subtrochanteric femur fracture 07/2207/27/2020 Facial numbness 03/31/2019 04/03/2019 GI bleed 12/31/2018 01/11/2019 Frequency of urination 03/19/2018 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 documented as of this encounter (statuses as of 09/11/2021) [address]10-2021 History of Past illness Narrative* Problem Noted Date Resolved Date Closed left subtrochanteric femur fracture 07/2207/27/2020 Facial numbness 03/31/2019 04/03/2019 GI bleed 12/31/2018 01/11/2019 Frequency of urination 03/19/2018 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 documented as of this encounter (statuses as of 09/12/2021) [address]10-2021 History of Past illness Narrative* Problem Noted Date Resolved Date Closed left subtrochanteric femur fracture 07/2207/27/2020 Facial numbness 03/31/2019 04/03/2019 GI bleed 12/31/2018 01/11/2019 Frequency of urination 03/19/2018 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 documented as of this encounter (statuses as of 09/13/2021) [address]10-2021 History of Past illness Narrative* Problem Noted Date Resolved Date Closed left subtrochanteric femur fracture 07/2207/27/2020 Facial numbness 03/31/2019 04/03/2019 GI bleed 12/31/2018 01/11/2019 Frequency of urination 03/19/2018 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 documented as of this encounter (statuses as of 09/13/2021) [address]10-2021 History of Past illness Narrative* Problem Noted Date Resolved Date Closed left subtrochanteric femur fracture 07/2207/27/2020 Facial numbness 03/31/2019 04/03/2019 GI bleed 12/31/2018 01/11/2019 Frequency of urination 03/19/2018 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 documented as of this encounter (statuses as of 09/19/2021) [address]10-2021 History of Past illness Narrative* Problem Noted Date Resolved Date Closed left subtrochanteric femur fracture 07/2207/27/2020 Facial numbness 03/31/2019 04/03/2019 GI bleed 12/31/2018 01/11/2019 Frequency of urination 03/19/2018 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 documented as of this encounter (statuses as of 09/24/2021) [address]10-2021 History of Past illness Narrative* Problem Noted Date Resolved Date Closed left subtrochanteric femur fracture 07/2207/27/2020 Facial numbness 03/31/2019 04/03/2019 GI bleed 12/31/2018 01/11/2019 Frequency of urination 03/19/2018 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 documented as of this encounter (statuses as of 09/26/2021) [address]10-2021 History of Past illness Narrative* Problem Noted Date Resolved Date Closed left subtrochanteric femur fracture 07/2207/27/2020 Facial numbness 03/31/2019 04/03/2019 GI bleed 12/31/2018 01/11/2019 Frequency of urination 03/19/2018 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 documented as of this encounter (statuses as of 09/26/2021) [address]10-2021 History of Past illness Narrative* Problem Noted Date Resolved Date Closed left subtrochanteric femur fracture 07/2207/27/2020 Facial numbness 03/31/2019 04/03/2019 GI bleed 12/31/2018 01/11/2019 Frequency of urination 03/19/2018 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 documented as of this encounter (statuses as of 09/28/2021) [address]10-2021 History of Past illness Narrative* Problem Noted Date Resolved Date Closed left subtrochanteric femur fracture 07/2207/27/2020 Facial numbness 03/31/2019 04/03/2019 GI bleed 12/31/2018 01/11/2019 Frequency of urination 03/19/2018 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 documented as of this encounter (statuses as of 09/28/2021) [address]10-2021 History of Past illness Narrative* Problem Noted Date Resolved Date Closed left subtrochanteric femur fracture 07/2207/27/2020 Facial numbness 03/31/2019 04/03/2019 GI bleed 12/31/2018 01/11/2019 Frequency of urination 03/19/2018 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 documented as of this encounter (statuses as of 10/02/2021) [address]10-2021 History of Past illness Narrative* Problem Noted Date Resolved Date Closed left subtrochanteric femur fracture 07/2207/27/2020 Facial numbness 03/31/2019 04/03/2019 GI bleed 12/31/2018 01/11/2019 Frequency of urination 03/19/2018 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 documented as of this encounter (statuses as of 10/03/2021) [address]10-2021 History of Past illness Narrative* Problem Noted Date Resolved Date Closed left subtrochanteric femur fracture 07/2207/27/2020 Facial numbness 03/31/2019 04/03/2019 GI bleed 12/31/2018 01/11/2019 Frequency of urination 03/19/2018 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 documented as of this encounter (statuses as of 10/04/2021) [address]-2021 History of Past illness Narrative* Problem Noted Date Resolved Date Closed left subtrochanteric femur fracture 07/2207/27/2020 Facial numbness 03/31/2019 04/03/2019 GI bleed 12/31/2018 01/11/2019 Frequency of urination 03/19/2018 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 documented as of this encounter (statuses as of 10/09/2021) [address]-2021 History of Past illness Narrative* Problem Noted Date Resolved Date Closed left subtrochanteric femur fracture 07/2207/27/2020 Facial numbness 03/31/2019 04/03/2019 GI bleed 12/31/2018 01/11/2019 Frequency of urination 03/19/2018 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 documented as of this encounter (statuses as of 10/10/2021) [address]-2021 History of Past illness Narrative* Problem Noted Date Resolved Date Closed left subtrochanteric femur fracture 07/2207/27/2020 Facial numbness 03/31/2019 04/03/2019 GI bleed 12/31/2018 01/11/2019 Frequency of urination 03/19/2018 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 documented as of this encounter (statuses as of 10/11/2021) [address]-2021 History of Past illness Narrative* Problem Noted Date Resolved Date Closed left subtrochanteric femur fracture 07/2207/27/2020 Facial numbness 03/31/2019 04/03/2019 GI bleed 12/31/2018 01/11/2019 Frequency of urination 03/19/2018 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 documented as of this encounter (statuses as of 10/17/2021) [address]-2021 History of Past illness Narrative* Problem Noted Date Resolved Date Closed left subtrochanteric femur fracture 07/2207/27/2020 Facial numbness 03/31/2019 04/03/2019 GI bleed 12/31/2018 01/11/2019 Frequency of urination 03/19/2018 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 documented as of this encounter (statuses as of 10/17/2021) [address]-2021 History of Past illness Narrative* Problem Noted Date Resolved Date Closed left subtrochanteric femur fracture 07/2207/27/2020 Facial numbness 03/31/2019 04/03/2019 GI bleed 12/31/2018 01/11/2019 Frequency of urination 03/19/2018 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 documented as of this encounter (statuses as of 10/18/2021) [address]10-2021 History of Past illness Narrative* Problem Noted Date Resolved Date Closed left subtrochanteric femur fracture 07/2207/27/2020 Facial numbness 03/31/2019 04/03/2019 GI bleed 12/31/2018 01/11/2019 Frequency of urination 03/19/2018 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 documented as of this encounter (statuses as of 10/18/2021) [address]-2021 History of Past illness Narrative* Problem Noted Date Resolved Date Closed left subtrochanteric femur fracture 07/2207/27/2020 Facial numbness 03/31/2019 04/03/2019 GI bleed 12/31/2018 01/11/2019 Frequency of urination 03/19/2018 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 documented as of this encounter (statuses as of 10/22/2021) [address]-2021 History of Past illness Narrative* Problem Noted Date Resolved Date Closed left subtrochanteric femur fracture 07/2207/27/2020 Facial numbness 03/31/2019 04/03/2019 GI bleed 12/31/2018 01/11/2019 Frequency of urination 03/19/2018 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 documented as of this encounter (statuses as of 10/22/2021) [address]-2021 History of Past illness Narrative* Problem Noted Date Resolved Date Closed left subtrochanteric femur fracture 07/2207/27/2020 Facial numbness 03/31/2019 04/03/2019 GI bleed 12/31/2018 01/11/2019 Frequency of urination 03/19/2018 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 documented as of this encounter (statuses as of 10/22/2021) [address]-2021 History of Past illness Narrative* Problem Noted Date Resolved Date Closed left subtrochanteric femur fracture 07/2207/27/2020 Facial numbness 03/31/2019 04/03/2019 GI bleed 12/31/2018 01/11/2019 Frequency of urination 03/19/2018 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 documented as of this encounter (statuses as of 10/24/2021) [address]-2021 History of Past illness Narrative* Problem Noted Date Resolved Date Closed left subtrochanteric femur fracture 07/2207/27/2020 Facial numbness 03/31/2019 04/03/2019 GI bleed 12/31/2018 01/11/2019 Frequency of urination 03/19/2018 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 documented as of this encounter (statuses as of 10/24/2021) [address]-2021 History of Past illness Narrative* Problem Noted Date Resolved Date Closed left subtrochanteric femur fracture 07/2207/27/2020 Facial numbness 03/31/2019 04/03/2019 GI bleed 12/31/2018 01/11/2019 Frequency of urination 03/19/2018 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 documented as of this encounter (statuses as of 10/25/2021) [address]-2021 History of Past illness Narrative* Problem Noted Date Resolved Date Closed left subtrochanteric femur fracture 07/2207/27/2020 Facial numbness 03/31/2019 04/03/2019 GI bleed 12/31/2018 01/11/2019 Frequency of urination 03/19/2018 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 documented as of this encounter (statuses as of 10/25/2021) [address]-2021 History of Past illness Narrative* Problem Noted Date Resolved Date Closed left subtrochanteric femur fracture 07/2207/27/2020 Facial numbness 03/31/2019 04/03/2019 GI bleed 12/31/2018 01/11/2019 Frequency of urination 03/19/2018 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 documented as of this encounter (statuses as of 2021) [address]-2021 History of Past illness Narrative* Problem Noted Date Resolved Date Closed left subtrochanteric femur fracture 07/2207/27/2020 Facial numbness 03/31/2019 04/03/2019 GI bleed 12/31/2018 01/11/2019 Frequency of urination 03/19/2018 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 documented as of this encounter (statuses as of 2021) [address]-2021 History of Past illness Narrative* Problem Noted Date Resolved Date Closed left subtrochanteric femur fracture 07/2207/27/2020 Facial numbness 03/31/2019 04/03/2019 GI bleed 12/31/2018 01/11/2019 Frequency of urination 03/19/2018 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 documented as of this encounter (statuses as of 2021) [address]-2021 History of Past illness Narrative* Problem Noted Date Resolved Date Closed left subtrochanteric femur fracture 07/2207/27/2020 Facial numbness 03/31/2019 04/03/2019 GI bleed 12/31/2018 01/11/2019 Frequency of urination 03/19/2018 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 documented as of this encounter (statuses as of 10/31/2021) [address]-2021 History of Past illness Narrative* Problem Noted Date Resolved Date Closed left subtrochanteric femur fracture 07/2207/27/2020 Facial numbness 03/31/2019 04/03/2019 GI bleed 12/31/2018 01/11/2019 Frequency of urination 03/19/2018 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 documented as of this encounter (statuses as of 11/07/2021) [address]-2021 History of Past illness Narrative* Problem Noted Date Resolved Date Closed left subtrochanteric femur fracture 07/2207/27/2020 Facial numbness 03/31/2019 04/03/2019 GI bleed 12/31/2018 01/11/2019 Frequency of urination 03/19/2018 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 documented as of this encounter (statuses as of 11/12/2021) [address]-2021 History of Past illness Narrative* Problem Noted Date Resolved Date Closed left subtrochanteric femur fracture 07/2207/27/2020 Facial numbness 03/31/2019 04/03/2019 GI bleed 12/31/2018 01/11/2019 Frequency of urination 03/19/2018 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 documented as of this encounter (statuses as of 11/15/2021) [address]10-2021 History of Past illness Narrative* Problem Noted Date Resolved Date Closed left subtrochanteric femur fracture 07/2207/27/2020 Facial numbness 03/31/2019 04/03/2019 GI bleed 12/31/2018 01/11/2019 Frequency of urination 03/19/2018 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 documented as of this encounter (statuses as of 11/19/2021) [address]10-2021 History of Past illness Narrative* Problem Noted Date Resolved Date Closed left subtrochanteric femur fracture 07/2207/27/2020 Facial numbness 03/31/2019 04/03/2019 GI bleed 12/31/2018 01/11/2019 Frequency of urination 03/19/2018 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 documented as of this encounter (statuses as of 11/19/2021) [address]-2021 History of Past illness Narrative* Problem Noted Date Resolved Date Closed left subtrochanteric femur fracture 07/2207/27/2020 Facial numbness 03/31/2019 04/03/2019 GI bleed 12/31/2018 01/11/2019 Frequency of urination 03/19/2018 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 documented as of this encounter (statuses as of 11/22/2021) [address]-2021 History of Past illness Narrative* Problem Noted Date Resolved Date Closed left subtrochanteric femur fracture 07/2207/27/2020 Facial numbness 03/31/2019 04/03/2019 GI bleed 12/31/2018 01/11/2019 Frequency of urination 03/19/2018 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 documented as of this encounter (statuses as of 12/01/2021) [address]-2021 History of Past illness Narrative* Problem Noted Date Resolved Date Closed left subtrochanteric femur fracture 07/2207/27/2020 Facial numbness 03/31/2019 04/03/2019 GI bleed 12/31/2018 01/11/2019 Frequency of urination 03/19/2018 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 documented as of this encounter (statuses as of 12/03/2021) [address]10-2021 History of Past illness Narrative* Problem Noted Date Resolved Date Closed left subtrochanteric femur fracture 07/2207/27/2020 Facial numbness 03/31/2019 04/03/2019 GI bleed 12/31/2018 01/11/2019 Frequency of urination 03/19/2018 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 documented as of this encounter (statuses as of 12/04/2021) [address]-2021 History of Past illness Narrative* Problem Noted Date Resolved Date Closed left subtrochanteric femur fracture 07/2207/27/2020 Facial numbness 03/31/2019 04/03/2019 GI bleed 12/31/2018 01/11/2019 Frequency of urination 03/19/2018 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 documented as of this encounter (statuses as of 12/07/2021) [address]10-2021 History of Past illness Narrative* Problem Noted Date Resolved Date Closed left subtrochanteric femur fracture 07/2207/27/2020 Facial numbness 03/31/2019 04/03/2019 GI bleed 12/31/2018 01/11/2019 Frequency of urination 03/19/2018 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 documented as of this encounter (statuses as of 12/12/2021) [address]10-2021 History of Past illness Narrative* Problem Noted Date Resolved Date Closed left subtrochanteric femur fracture 07/2207/27/2020 Facial numbness 03/31/2019 04/03/2019 GI bleed 12/31/2018 01/11/2019 Frequency of urination 03/19/2018 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 documented as of this encounter (statuses as of 12/18/2021) [address]10-2021 History of Past illness Narrative* Problem Noted Date Resolved Date Closed left subtrochanteric femur fracture 07/2207/27/2020 Facial numbness 03/31/2019 04/03/2019 GI bleed 12/31/2018 01/11/2019 Frequency of urination 03/19/2018 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 documented as of this encounter (statuses as of 12/19/2021) [address]10-2021 History of Past illness Narrative* Problem Noted Date Resolved Date Closed left subtrochanteric femur fracture 07/2207/27/2020 Facial numbness 03/31/2019 04/03/2019 GI bleed 12/31/2018 01/11/2019 Frequency of urination 03/19/2018 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 documented as of this encounter (statuses as of 12/27/2021) [address]10-2021 History of Past illness Narrative* Problem Noted Date Resolved Date Closed left subtrochanteric femur fracture 07/2207/27/2020 Facial numbness 03/31/2019 04/03/2019 GI bleed 12/31/2018 01/11/2019 Frequency of urination 03/19/2018 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 documented as of this encounter (statuses as of 01/16/2022) [address]10-2021 History of Past illness Narrative* Problem Noted Date Resolved Date Closed left subtrochanteric femur fracture 07/2207/27/2020 Facial numbness 03/31/2019 04/03/2019 GI bleed 12/31/2018 01/11/2019 Frequency of urination 03/19/2018 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 documented as of this encounter (statuses as of 01/17/2022) [address]10-2021 History of Past illness Narrative* Problem Noted Date Resolved Date Closed left subtrochanteric femur fracture 07/2207/27/2020 Facial numbness 03/31/2019 04/03/2019 GI bleed 12/31/2018 01/11/2019 Frequency of urination 03/19/2018 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 documented as of this encounter (statuses as of 01/17/2022) [address]10-2021 History of Past illness Narrative* Problem Noted Date Resolved Date Closed left subtrochanteric femur fracture 07/2207/27/2020 Facial numbness 03/31/2019 04/03/2019 GI bleed 12/31/2018 01/11/2019 Frequency of urination 03/19/2018 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 documented as of this encounter (statuses as of 01/21/2022) [address]10-2021 History of Past illness Narrative* Problem Noted Date Resolved Date Closed left subtrochanteric femur fracture 07/2207/27/2020 Facial numbness 03/31/2019 04/03/2019 GI bleed 12/31/2018 01/11/2019 Frequency of urination 03/19/2018 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 documented as of this encounter (statuses as of 01/24/2022) [address]10-2021 History of Past illness Narrative* Problem Noted Date Resolved Date Closed left subtrochanteric femur fracture 07/2207/27/2020 Facial numbness 03/31/2019 04/03/2019 GI bleed 12/31/2018 01/11/2019 Frequency of urination 03/19/2018 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 documented as of this encounter (statuses as of 02/06/2022) [address]10-2021 History of Past illness Narrative* Problem Noted Date Resolved Date Closed left subtrochanteric femur fracture 07/2207/27/2020 Facial numbness 03/31/2019 04/03/2019 GI bleed 12/31/2018 01/11/2019 Frequency of urination 03/19/2018 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 documented as of this encounter (statuses as of 02/14/2022) [address]10-2021 History of Past illness Narrative* Problem Noted Date Resolved Date Closed left subtrochanteric femur fracture 07/2207/27/2020 Facial numbness 03/31/2019 04/03/2019 GI bleed 12/31/2018 01/11/2019 Frequency of urination 03/19/2018 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 documented as of this encounter (statuses as of 02/15/2022) [address]10-2021 History of Past illness Narrative* Problem Noted Date Resolved Date Closed left subtrochanteric femur fracture 07/2207/27/2020 Facial numbness 03/31/2019 04/03/2019 GI bleed 12/31/2018 01/11/2019 Frequency of urination 03/19/2018 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 documented as of this encounter (statuses as of 02/19/2022) [address]10-2021 History of Past illness Narrative* Problem Noted Date Resolved Date Closed left subtrochanteric femur fracture 07/2207/27/2020 Facial numbness 03/31/2019 04/03/2019 GI bleed 12/31/2018 01/11/2019 Frequency of urination 03/19/2018 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 documented as of this encounter (statuses as of 02/20/2022) [address]10-2021 History of Past illness Narrative* Problem Noted Date Resolved Date Closed left subtrochanteric femur fracture 07/2207/27/2020 Facial numbness 03/31/2019 04/03/2019 GI bleed 12/31/2018 01/11/2019 Frequency of urination 03/19/2018 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 documented as of this encounter (statuses as of 02/26/2022) [address]10-2021 History of Past illness Narrative* Problem Noted Date Resolved Date Closed left subtrochanteric femur fracture 07/2207/27/2020 Facial numbness 03/31/2019 04/03/2019 GI bleed 12/31/2018 01/11/2019 Frequency of urination 03/19/2018 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 documented as of this encounter (statuses as of 03/04/2022) [address]10-2021 History of Past illness Narrative* Problem Noted Date Resolved Date Closed left subtrochanteric femur fracture 07/2207/27/2020 Facial numbness 03/31/2019 04/03/2019 GI bleed 12/31/2018 01/11/2019 Frequency of urination 03/19/2018 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 documented as of this encounter (statuses as of 03/13/2022) [address]10-2021 History of Past illness Narrative* Problem Noted Date Resolved Date Closed left subtrochanteric femur fracture 07/2207/27/2020 Facial numbness 03/31/2019 04/03/2019 GI bleed 12/31/2018 01/11/2019 Frequency of urination 03/19/2018 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 documented as of this encounter (statuses as of 03/18/2022) [address]10-2021 History of Past illness Narrative* Problem Noted Date Resolved Date Closed left subtrochanteric femur fracture 07/2207/27/2020 Facial numbness 03/31/2019 04/03/2019 GI bleed 12/31/2018 01/11/2019 Frequency of urination 03/19/2018 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 documented as of this encounter (statuses as of 03/18/2022) [address]10-2021 History of Past illness Narrative* Problem Noted Date Resolved Date Closed left subtrochanteric femur fracture 07/2207/27/2020 Facial numbness 03/31/2019 04/03/2019 GI bleed 12/31/2018 01/11/2019 Frequency of urination 03/19/2018 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 documented as of this encounter (statuses as of 03/18/2022) [address]10-2021 History of Past illness Narrative* Problem Noted Date Resolved Date Closed left subtrochanteric femur fracture 07/2207/27/2020 Facial numbness 03/31/2019 04/03/2019 GI bleed 12/31/2018 01/11/2019 Frequency of urination 03/19/2018 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 documented as of this encounter (statuses as of 03/21/2022) [address]10-2021 History of Past illness Narrative* Problem Noted Date Resolved Date Closed left subtrochanteric femur fracture 07/2207/27/2020 Facial numbness 03/31/2019 04/03/2019 GI bleed 12/31/2018 01/11/2019 Frequency of urination 03/19/2018 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 documented as of this encounter (statuses as of 03/21/2022) [address]10-2021 History of Past illness Narrative* Problem Noted Date Resolved Date Closed left subtrochanteric femur fracture 07/2207/27/2020 Facial numbness 03/31/2019 04/03/2019 GI bleed 12/31/2018 01/11/2019 Frequency of urination 03/19/2018 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 documented as of this encounter (statuses as of 03/22/2022) [address]10-2021 History of Past illness Narrative* Problem Noted Date Resolved Date Closed left subtrochanteric femur fracture 07/2207/27/2020 Facial numbness 03/31/2019 04/03/2019 GI bleed 12/31/2018 01/11/2019 Frequency of urination 03/19/2018 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 documented as of this encounter (statuses as of 03/25/2022) [address]10-2021 History of Past illness Narrative* Problem Noted Date Resolved Date Closed left subtrochanteric femur fracture 07/2207/27/2020 Facial numbness 03/31/2019 04/03/2019 GI bleed 12/31/2018 01/11/2019 Frequency of urination 03/19/2018 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 documented as of this encounter (statuses as of 03/27/2022) [address]10-2021 History of Past illness Narrative* Problem Noted Date Resolved Date Closed left subtrochanteric femur fracture 07/2207/27/2020 Facial numbness 03/31/2019 04/03/2019 GI bleed 12/31/2018 01/11/2019 Frequency of urination 03/19/2018 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 documented as of this encounter (statuses as of 04/03/2022) [address]10-2021 History of Past illness Narrative* Problem Noted Date Resolved Date Closed left subtrochanteric femur fracture 07/2207/27/2020 Facial numbness 03/31/2019 04/03/2019 GI bleed 12/31/2018 01/11/2019 Frequency of urination 03/19/2018 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 documented as of this encounter (statuses as of 04/03/2022) [address]10-2021 History of Past illness Narrative* Problem Noted Date Resolved Date Closed left subtrochanteric femur fracture 07/2207/27/2020 Facial numbness 03/31/2019 04/03/2019 GI bleed 12/31/2018 01/11/2019 Frequency of urination 03/19/2018 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 documented as of this encounter (statuses as of 04/05/2022) [address]10-2021 History of Past illness Narrative* Problem Noted Date Resolved Date Closed left subtrochanteric femur fracture 07/2207/27/2020 Facial numbness 03/31/2019 04/03/2019 GI bleed 12/31/2018 01/11/2019 Frequency of urination 03/19/2018 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 documented as of this encounter (statuses as of 04/06/2022) [address]10-2021 History of Past illness Narrative* Problem Noted Date Resolved Date Closed left subtrochanteric femur fracture 07/2207/27/2020 Facial numbness 03/31/2019 04/03/2019 GI bleed 12/31/2018 01/11/2019 Frequency of urination 03/19/2018 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 documented as of this encounter (statuses as of 04/19/2022) [address]10-2021 History of Past illness Narrative* Problem Noted Date Resolved Date Closed left subtrochanteric femur fracture 07/2207/27/2020 Facial numbness 03/31/2019 04/03/2019 GI bleed 12/31/2018 01/11/2019 Frequency of urination 03/19/2018 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 documented as of this encounter (statuses as of 04/19/2022) [address]10-2021 History of Past illness Narrative* Problem Noted Date Resolved Date Closed left subtrochanteric femur fracture 07/2207/27/2020 Facial numbness 03/31/2019 04/03/2019 GI bleed 12/31/2018 01/11/2019 Frequency of urination 03/19/2018 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 documented as of this encounter (statuses as of 04/19/2022) [address]10-2021 History of Past illness Narrative* Problem Noted Date Resolved Date Closed left subtrochanteric femur fracture 07/2207/27/2020 Facial numbness 03/31/2019 04/03/2019 GI bleed 12/31/2018 01/11/2019 Frequency of urination 03/19/2018 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 documented as of this encounter (statuses as of 04/20/2022) [address]10-2021 History of Past illness Narrative* Problem Noted Date Resolved Date Closed left subtrochanteric femur fracture 07/2207/27/2020 Facial numbness 03/31/2019 04/03/2019 GI bleed 12/31/2018 01/11/2019 Frequency of urination 03/19/2018 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 documented as of this encounter (statuses as of 04/23/2022) [address]10-2021 History of Past illness Narrative* Problem Noted Date Resolved Date Closed left subtrochanteric femur fracture 07/2207/27/2020 Facial numbness 03/31/2019 04/03/2019 GI bleed 12/31/2018 01/11/2019 Frequency of urination 03/19/2018 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 documented as of this encounter (statuses as of 04/25/2022) [address]10-2021 History of Past illness Narrative* Problem Noted Date Resolved Date Closed left subtrochanteric femur fracture 07/2207/27/2020 Facial numbness 03/31/2019 04/03/2019 GI bleed 12/31/2018 01/11/2019 Frequency of urination 03/19/2018 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 documented as of this encounter (statuses as of 04/30/2022) [address]10-2021 History of Past illness Narrative* Problem Noted Date Resolved Date Closed left subtrochanteric femur fracture 07/2207/27/2020 Facial numbness 03/31/2019 04/03/2019 GI bleed 12/31/2018 01/11/2019 Frequency of urination 03/19/2018 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 documented as of this encounter (statuses as of 05/15/2022) [address]10-2021 History of Past illness Narrative* Problem Noted Date Resolved Date Closed left subtrochanteric femur fracture 07/2207/27/2020 Facial numbness 03/31/2019 04/03/2019 GI bleed 12/31/2018 01/11/2019 Frequency of urination 03/19/2018 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 documented as of this encounter (statuses as of 05/22/2022) [address]10-2021 History of Past illness Narrative* Problem Noted Date Resolved Date Closed left subtrochanteric femur fracture 07/2207/27/2020 Facial numbness 03/31/2019 04/03/2019 GI bleed 12/31/2018 01/11/2019 Frequency of urination 03/19/2018 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 documented as of this encounter (statuses as of 05/23/2022) [address]10-2021 History of Past illness Narrative* Problem Noted Date Resolved Date Closed left subtrochanteric femur fracture 07/2207/27/2020 Facial numbness 03/31/2019 04/03/2019 GI bleed 12/31/2018 01/11/2019 Frequency of urination 03/19/2018 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 documented as of this encounter (statuses as of 05/31/2022) [address]10-2021 History of Past illness Narrative* Problem Noted Date Resolved Date Closed left subtrochanteric femur fracture 07/2207/27/2020 Facial numbness 03/31/2019 04/03/2019 GI bleed 12/31/2018 01/11/2019 Frequency of urination 03/19/2018 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 documented as of this encounter (statuses as of 06/04/2022) [address]10-2021 History of Past illness Narrative* Problem Noted Date Resolved Date Closed left subtrochanteric femur fracture 07/2207/27/2020 Facial numbness 03/31/2019 04/03/2019 GI bleed 12/31/2018 01/11/2019 Frequency of urination 03/19/2018 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 documented as of this encounter (statuses as of 06/05/2022) [address]-2021 History of Past illness Narrative* Problem Noted Date Resolved Date Closed left subtrochanteric femur fracture 07/2207/27/2020 Facial numbness 03/31/2019 04/03/2019 GI bleed 12/31/2018 01/11/2019 Frequency of urination 03/19/2018 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 documented as of this encounter (statuses as of 06/07/2022) [address]-2021 History of Past illness Narrative* Problem Noted Date Resolved Date Closed left subtrochanteric femur fracture 07/2207/27/2020 Facial numbness 03/31/2019 04/03/2019 GI bleed 12/31/2018 01/11/2019 Frequency of urination 03/19/2018 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 documented as of this encounter (statuses as of 06/10/2022) [address]10-2021 History of Past illness Narrative* Problem Noted Date Resolved Date Closed left subtrochanteric femur fracture 07/2207/27/2020 Facial numbness 03/31/2019 04/03/2019 GI bleed 12/31/2018 01/11/2019 Frequency of urination 03/19/2018 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 documented as of this encounter (statuses as of 06/12/2022) [address]10-2021 History of Past illness Narrative* Problem Noted Date Resolved Date Closed left subtrochanteric femur fracture 07/2207/27/2020 Facial numbness 03/31/2019 04/03/2019 GI bleed 12/31/2018 01/11/2019 Frequency of urination 03/19/2018 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 documented as of this encounter (statuses as of 06/14/2022) [address]-2021 History of Past illness Narrative* Problem Noted Date Resolved Date Closed left subtrochanteric femur fracture 07/2207/27/2020 Facial numbness 03/31/2019 04/03/2019 GI bleed 12/31/2018 01/11/2019 Frequency of urination 03/19/2018 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 documented as of this encounter (statuses as of 06/14/2022) [address]-2021 History of Past illness Narrative* Problem Noted Date Resolved Date Closed left subtrochanteric femur fracture 07/2207/27/2020 Facial numbness 03/31/2019 04/03/2019 GI bleed 12/31/2018 01/11/2019 Frequency of urination 03/19/2018 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 documented as of this encounter (statuses as of 06/19/2022) [address]-2021 History of Past illness Narrative* Problem Noted Date Resolved Date Closed left subtrochanteric femur fracture 07/2207/27/2020 Facial numbness 03/31/2019 04/03/2019 GI bleed 12/31/2018 01/11/2019 Frequency of urination 03/19/2018 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 documented as of this encounter (statuses as of 06/21/2022) [address]-2021 History of Past illness Narrative* Problem Noted Date Resolved Date Closed left subtrochanteric femur fracture 07/2207/27/2020 Facial numbness 03/31/2019 04/03/2019 GI bleed 12/31/2018 01/11/2019 Frequency of urination 03/19/2018 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 documented as of this encounter (statuses as of 06/24/2022) [address]-2021 History of Past illness Narrative* Problem Noted Date Resolved Date Closed left subtrochanteric femur fracture 07/2207/27/2020 Facial numbness 03/31/2019 04/03/2019 GI bleed 12/31/2018 01/11/2019 Frequency of urination 03/19/2018 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 documented as of this encounter (statuses as of 06/25/2022) [address]-2021 History of Past illness Narrative* Problem Noted Date Resolved Date Closed left subtrochanteric femur fracture 07/2207/27/2020 Facial numbness 03/31/2019 04/03/2019 GI bleed 12/31/2018 01/11/2019 Frequency of urination 03/19/2018 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 documented as of this encounter (statuses as of 06/27/2022) [address]-2021 History of Past illness Narrative* Problem Noted Date Resolved Date Closed left subtrochanteric femur fracture 07/2207/27/2020 Facial numbness 03/31/2019 04/03/2019 GI bleed 12/31/2018 01/11/2019 Frequency of urination 03/19/2018 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 documented as of this encounter (statuses as of 06/28/2022) [address]-2021 History of Past illness Narrative* Problem Noted Date Resolved Date Closed left subtrochanteric femur fracture 07/2207/27/2020 Facial numbness 03/31/2019 04/03/2019 GI bleed 12/31/2018 01/11/2019 Frequency of urination 03/19/2018 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 documented as of this encounter (statuses as of 07/01/2022) [address]-2021 History of Past illness Narrative* Problem Noted Date Resolved Date Closed left subtrochanteric femur fracture 07/2207/27/2020 Facial numbness 03/31/2019 04/03/2019 GI bleed 12/31/2018 01/11/2019 Frequency of urination 03/19/2018 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 documented as of this encounter (statuses as of 07/02/2022) [address]-2021 History of Past illness Narrative* Problem Noted Date Resolved Date Closed left subtrochanteric femur fracture 07/2207/27/2020 Facial numbness 03/31/2019 04/03/2019 GI bleed 12/31/2018 01/11/2019 Frequency of urination 03/19/2018 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 documented as of this encounter (statuses as of 07/04/2022) [address]-2021 History of Past illness Narrative* Problem Noted Date Resolved Date Closed left subtrochanteric femur fracture 07/2207/27/2020 Facial numbness 03/31/2019 04/03/2019 GI bleed 12/31/2018 01/11/2019 Frequency of urination 03/19/2018 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 documented as of this encounter (statuses as of 07/05/2022) [address]-2021 History of Past illness Narrative* Problem Noted Date Resolved Date Closed left subtrochanteric femur fracture 07/2207/27/2020 Facial numbness 03/31/2019 04/03/2019 GI bleed 12/31/2018 01/11/2019 Frequency of urination 03/19/2018 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 documented as of this encounter (statuses as of 07/11/2022) [address]10-2021 History of Past illness Narrative* Problem Noted Date Resolved Date Closed left subtrochanteric femur fracture 07/2207/27/2020 Facial numbness 03/31/2019 04/03/2019 GI bleed 12/31/2018 01/11/2019 Frequency of urination 03/19/2018 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 documented as of this encounter (statuses as of 07/11/2022) [address]10-2021 History of Past illness Narrative* Problem Noted Date Resolved Date Closed left subtrochanteric femur fracture 07/2207/27/2020 Facial numbness 03/31/2019 04/03/2019 GI bleed 12/31/2018 01/11/2019 Frequency of urination 03/19/2018 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 documented as of this encounter (statuses as of 07/15/2022) [address]10-2021 History of Past illness Narrative* Problem Noted Date Resolved Date Closed left subtrochanteric femur fracture 07/2207/27/2020 Facial numbness 03/31/2019 04/03/2019 GI bleed 12/31/2018 01/11/2019 Frequency of urination 03/19/2018 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 documented as of this encounter (statuses as of 07/15/2022) [address]10-2021 History of Past illness Narrative* Problem Noted Date Resolved Date Closed left subtrochanteric femur fracture 07/2207/27/2020 Facial numbness 03/31/2019 04/03/2019 GI bleed 12/31/2018 01/11/2019 Frequency of urination 03/19/2018 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 documented as of this encounter (statuses as of 07/18/2022) [address]10-2021 History of Past illness Narrative* Problem Noted Date Resolved Date Closed left subtrochanteric femur fracture 07/2207/27/2020 Facial numbness 03/31/2019 04/03/2019 GI bleed 12/31/2018 01/11/2019 Frequency of urination 03/19/2018 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 documented as of this encounter (statuses as of 07/19/2022) [address]10-2021 History of Past illness Narrative* Problem Noted Date Resolved Date Closed left subtrochanteric femur fracture 07/2207/27/2020 Facial numbness 03/31/2019 04/03/2019 GI bleed 12/31/2018 01/11/2019 Frequency of urination 03/19/2018 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 documented as of this encounter (statuses as of 07/19/2022) [address]10-2021 History of Past illness Narrative* Problem Noted Date Resolved Date Closed left subtrochanteric femur fracture 07/2207/27/2020 Facial numbness 03/31/2019 04/03/2019 GI bleed 12/31/2018 01/11/2019 Frequency of urination 03/19/2018 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 documented as of this encounter (statuses as of 07/19/2022) [address]10-2021 History of Past illness Narrative* Problem Noted Date Resolved Date Closed left subtrochanteric femur fracture 07/2207/27/2020 Facial numbness 03/31/2019 04/03/2019 GI bleed 12/31/2018 01/11/2019 Frequency of urination 03/19/2018 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 documented as of this encounter (statuses as of 07/22/2022) [address]10-2021 History of Past illness Narrative* Problem Noted Date Resolved Date Closed left subtrochanteric femur fracture 07/2207/27/2020 Facial numbness 03/31/2019 04/03/2019 GI bleed 12/31/2018 01/11/2019 Frequency of urination 03/19/2018 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 documented as of this encounter (statuses as of 07/23/2022) [address]10-2021 History of Past illness Narrative* Problem Noted Date Resolved Date Closed left subtrochanteric femur fracture 07/2207/27/2020 Facial numbness 03/31/2019 04/03/2019 GI bleed 12/31/2018 01/11/2019 Frequency of urination 03/19/2018 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 documented as of this encounter (statuses as of 07/26/2022) [address]10-2021 History of Past illness Narrative* Problem Noted Date Resolved Date Closed left subtrochanteric femur fracture 07/2207/27/2020 Facial numbness 03/31/2019 04/03/2019 GI bleed 12/31/2018 01/11/2019 Frequency of urination 03/19/2018 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 documented as of this encounter (statuses as of 07/26/2022) [address]10-2021 History of Past illness Narrative* Problem Noted Date Resolved Date Closed left subtrochanteric femur fracture 07/2207/27/2020 Facial numbness 03/31/2019 04/03/2019 GI bleed 12/31/2018 01/11/2019 Frequency of urination 03/19/2018 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 documented as of this encounter (statuses as of 07/29/2022) [address]10-2021 History of Past illness Narrative* Problem Noted Date Resolved Date Closed left subtrochanteric femur fracture 07/2207/27/2020 Facial numbness 03/31/2019 04/03/2019 GI bleed 12/31/2018 01/11/2019 Frequency of urination 03/19/2018 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 documented as of this encounter (statuses as of 08/01/2022) [address]10-2021 History of Past illness Narrative* Problem Noted Date Resolved Date Closed left subtrochanteric femur fracture 07/2207/27/2020 Facial numbness 03/31/2019 04/03/2019 GI bleed 12/31/2018 01/11/2019 Frequency of urination 03/19/2018 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 documented as of this encounter (statuses as of 08/02/2022) [address]10-2021 History of Past illness Narrative* Problem Noted Date Resolved Date Closed left subtrochanteric femur fracture 07/2207/27/2020 Facial numbness 03/31/2019 04/03/2019 GI bleed 12/31/2018 01/11/2019 Frequency of urination 03/19/2018 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 documented as of this encounter (statuses as of 08/02/2022) [address]10-2021 History of Past illness Narrative* Problem Noted Date Resolved Date Closed left subtrochanteric femur fracture 07/2207/27/2020 Facial numbness 03/31/2019 04/03/2019 GI bleed 12/31/2018 01/11/2019 Frequency of urination 03/19/2018 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 documented as of this encounter (statuses as of 08/07/2022) [address]10-2021 History of Past illness Narrative* Problem Noted Date Resolved Date Closed left subtrochanteric femur fracture 07/2207/27/2020 Facial numbness 03/31/2019 04/03/2019 GI bleed 12/31/2018 01/11/2019 Frequency of urination 03/19/2018 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 documented as of this encounter (statuses as of 08/08/2022) [address]10-2021 History of Past illness Narrative* Problem Noted Date Resolved Date Closed left subtrochanteric femur fracture 07/2207/27/2020 Facial numbness 03/31/2019 04/03/2019 GI bleed 12/31/2018 01/11/2019 Frequency of urination 03/19/2018 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 documented as of this encounter (statuses as of 08/12/2022) [address]10-2021 History of Past illness Narrative* Problem Noted Date Resolved Date Closed left subtrochanteric femur fracture 07/2207/27/2020 Facial numbness 03/31/2019 04/03/2019 GI bleed 12/31/2018 01/11/2019 Frequency of urination 03/19/2018 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 documented as of this encounter (statuses as of 08/14/2022) [address]10-2021 History of Past illness Narrative* Problem Noted Date Resolved Date Closed left subtrochanteric femur fracture 07/2207/27/2020 Facial numbness 03/31/2019 04/03/2019 GI bleed 12/31/2018 01/11/2019 Frequency of urination 03/19/2018 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 documented as of this encounter (statuses as of 08/15/2022) [address]10-2021 History of Past illness Narrative* Problem Noted Date Resolved Date Closed left subtrochanteric femur fracture 07/2207/27/2020 Facial numbness 03/31/2019 04/03/2019 GI bleed 12/31/2018 01/11/2019 Frequency of urination 03/19/2018 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 documented as of this encounter (statuses as of 08/19/2022) [facility]-10[facility]2021 History of Past illness Narrative* Problem Noted Date Resolved Date Closed left subtrochanteric femur fracture 07/2207/27/2020 Facial numbness 03/31/2019 04/03/2019 GI bleed 12/31/2018 01/11/2019 Frequency of urination 03/19/2018 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 documented as of this encounter (statuses as of 08/21/2022) [address]10-2021 History of Past illness Narrative* Problem Noted Date Resolved Date Closed left subtrochanteric femur fracture 07/2207/27/2020 Facial numbness 03/31/2019 04/03/2019 GI bleed 12/31/2018 01/11/2019 Frequency of urination 03/19/2018 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 documented as of this encounter (statuses as of 08/27/2022) [address]10-2021 History of Past illness Narrative* Problem Noted Date Resolved Date Closed left subtrochanteric femur fracture 07/2207/27/2020 Facial numbness 03/31/2019 04/03/2019 GI bleed 12/31/2018 01/11/2019 Frequency of urination 03/19/2018 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 documented as of this encounter (statuses as of 08/29/2022) [address]10-2021 History of Past illness Narrative* Problem Noted Date Resolved Date Closed left subtrochanteric femur fracture 07/2207/27/2020 Facial numbness 03/31/2019 04/03/2019 GI bleed 12/31/2018 01/11/2019 Frequency of urination 03/19/2018 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 documented as of this encounter (statuses as of 09/16/2022) [address]10-2021 History of Past illness Narrative* Problem Noted Date Resolved Date Closed left subtrochanteric femur fracture 07/2207/27/2020 Facial numbness 03/31/2019 04/03/2019 GI bleed 12/31/2018 01/11/2019 Frequency of urination 03/19/2018 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 documented as of this encounter (statuses as of 09/18/2022) [address]10-2021 History of Past illness Narrative* Problem Noted Date Resolved Date Closed left subtrochanteric femur fracture 07/2207/27/2020 Facial numbness 03/31/2019 04/03/2019 GI bleed 12/31/2018 01/11/2019 Frequency of urination 03/19/2018 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 documented as of this encounter (statuses as of 09/26/2022) [address]10-2021 History of Past illness Narrative* Problem Noted Date Resolved Date Closed left subtrochanteric femur fracture 07/2207/27/2020 Facial numbness 03/31/2019 04/03/2019 GI bleed 12/31/2018 01/11/2019 Frequency of urination 03/19/2018 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 documented as of this encounter (statuses as of 10/03/2022) [address]10-2021 History of Past illness Narrative* Problem Noted Date Resolved Date Closed left subtrochanteric femur fracture 07/2207/27/2020 Facial numbness 03/31/2019 04/03/2019 GI bleed 12/31/2018 01/11/2019 Frequency of urination 03/19/2018 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 documented as of this encounter (statuses as of 10/10/2022) [address]10-2021 History of Past illness Narrative* Problem Noted Date Resolved Date Closed left subtrochanteric femur fracture 07/2207/27/2020 Facial numbness 03/31/2019 04/03/2019 GI bleed 12/31/2018 01/11/2019 Frequency of urination 03/19/2018 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 documented as of this encounter (statuses as of 10/10/2022) [address]10-2021 History of Past illness Narrative* Problem Noted Date Resolved Date Closed left subtrochanteric femur fracture 07/2207/27/2020 Facial numbness 03/31/2019 04/03/2019 GI bleed 12/31/2018 01/11/2019 Frequency of urination 03/19/2018 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 documented as of this encounter (statuses as of 10/10/2022) [address]10-2021 History of Past illness Narrative* Problem Noted Date Resolved Date Closed left subtrochanteric femur fracture 07/2207/27/2020 Facial numbness 03/31/2019 04/03/2019 GI bleed 12/31/2018 01/11/2019 Frequency of urination 03/19/2018 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 documented as of this encounter (statuses as of 10/17/2022) [address]10-2021 History of Past illness Narrative* Problem Noted Date Resolved Date Closed left subtrochanteric femur fracture 07/2207/27/2020 Facial numbness 03/31/2019 04/03/2019 GI bleed 12/31/2018 01/11/2019 Frequency of urination 03/19/2018 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 documented as of this encounter (statuses as of 10/17/2022) [address]10-2021 History of Past illness Narrative* Problem Noted Date Resolved Date Closed left subtrochanteric femur fracture 07/2207/27/2020 Facial numbness 03/31/2019 04/03/2019 GI bleed 12/31/2018 01/11/2019 Frequency of urination 03/19/2018 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 documented as of this encounter (statuses as of 10/18/2022) [address]10-2021 History of Past illness Narrative* Problem Noted Date Resolved Date Closed left subtrochanteric femur fracture 07/2207/27/2020 Facial numbness 03/31/2019 04/03/2019 GI bleed 12/31/2018 01/11/2019 Frequency of urination 03/19/2018 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 documented as of this encounter (statuses as of 10/18/2022) [address]10-2021 History of Past illness Narrative* Problem Noted Date Diagnosed Date Resolved Date Closed left subtrochanteric femur fracture 07/22/2020 07/27/2020 Facial numbness 03/31/2019 04/03/2019 GI bleed 12/31/2018 01/11/2019 Frequency of urination 03/19/201802/11 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 documented as of this encounter (statuses as of 10/19/2022) [address]10-2021 History of Past illness Narrative* Problem Noted Date Diagnosed Date Resolved Date Closed left subtrochanteric femur fracture 07/22/2020 07/27/2020 Facial numbness 03/31/2019 04/03/2019 GI bleed 12/31/2018 01/11/2019 Frequency of urination 03/19/201802/11 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 documented as of this encounter (statuses as of 10/22/2022) [address]10-2021 History of Past illness Narrative* Problem Noted Date Diagnosed Date Resolved Date Closed left subtrochanteric femur fracture 07/22/2020 07/27/2020 Facial numbness 03/31/2019 04/03/2019 GI bleed 12/31/2018 01/11/2019 Frequency of urination 03/19/201802/11 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 documented as of this encounter (statuses as of 10/24/2022) [address]10-2021 History of Past illness Narrative* Problem Noted Date Diagnosed Date Resolved Date Closed left subtrochanteric femur fracture 07/22/2020 07/27/2020 Facial numbness 03/31/2019 04/03/2019 GI bleed 12/31/2018 01/11/2019 Frequency of urination 03/19/201802/11 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 documented as of this encounter (statuses as of 10/24/2022) [address]10-2021 History of Past illness Narrative* Problem Noted Date Diagnosed Date Resolved Date Closed left subtrochanteric femur fracture 07/22/2020 07/27/2020 Facial numbness 03/31/2019 04/03/2019 GI bleed 12/31/2018 01/11/2019 Frequency of urination 03/19/201802/11 AVM (arteriovenous malformation) of colon 01/11/2019 documented as of this encounter (statuses as of 11/04/2022) [address]10-2021 History of Past illness Narrative* Problem Noted Date Diagnosed Date Resolved Date Closed left subtrochanteric femur fracture 07/22/2020 07/27/2020 Facial numbness 03/31/2019 04/03/2019 GI bleed 12/31/2018 01/11/2019 Frequency of urination 03/19/201802/11 AVM (arteriovenous malformation) of colon 01/11/2019 documented as of this encounter (statuses as of 11/06/2022) [address]10-2021 History of Past illness Narrative* Problem Noted Date Diagnosed Date Resolved Date Closed left subtrochanteric femur fracture 07/22/2020 07/27/2020 Facial numbness 03/31/2019 04/03/2019 GI bleed 12/31/2018 01/11/2019 Frequency of urination 03/19/201802/11 AVM (arteriovenous malformation) of colon 01/11/2019 documented as of this encounter (statuses as of 11/07/2022) [address]10-2021 History of Past illness Narrative* Problem Noted Date Diagnosed Date Resolved Date Closed left subtrochanteric femur fracture 07/22/2020 07/27/2020 Facial numbness 03/31/2019 04/03/2019 GI bleed 12/31/2018 01/11/2019 Frequency of urination 03/19/201802/11 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/11/2019 documented as of this encounter (statuses as of 11/12/2022) [address]10-2021 History of Past illness Narrative* Problem Noted Date Diagnosed Date Resolved Date Closed left subtrochanteric femur fracture 07/22/2020 07/27/2020 Facial numbness 03/31/2019 04/03/2019 GI bleed 12/31/2018 01/11/2019 Frequency of urination 03/19/201802/11 AVM (arteriovenous malformation) of colon 01/11/2019 documented as of this encounter (statuses as of 11/13/2022) [address]10-2021 History of Past illness Narrative* Problem Noted Date Diagnosed Date Resolved Date Closed left subtrochanteric femur fracture 07/22/2020 07/27/2020 Facial numbness 03/31/2019 04/03/2019 GI bleed 12/31/2018 01/11/2019 Frequency of urination 03/19/201802/11 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/11/2019 documented as of this encounter (statuses as of 11/15/2022) [address]10-2021 History of Past illness Narrative* Problem Noted Date Diagnosed Date Resolved Date Closed left subtrochanteric femur fracture 07/22/2020 07/27/2020 Facial numbness 03/31/2019 04/03/2019 GI bleed 12/31/2018 01/11/2019 Frequency of urination 03/19/201802/11 AVM (arteriovenous malformation) of colon 01/11/2019 documented as of this encounter (statuses as of 11/16/2022) [address]10-2021 History of Past illness Narrative* Problem Noted Date Diagnosed Date Resolved Date Closed left subtrochanteric femur fracture 07/22/2020 07/27/2020 Facial numbness 03/31/2019 04/03/2019 GI bleed 12/31/2018 01/11/2019 Frequency of urination 03/19/201802/11 AVM (arteriovenous malformation) of colon 01/11/2019 documented as of this encounter (statuses as of 11/18/2022) [address]10-2021 History of Past illness Narrative* Problem Noted Date Diagnosed Date Resolved Date Closed left subtrochanteric femur fracture 07/22/2020 07/27/2020 Facial numbness 03/31/2019 04/03/2019 GI bleed 12/31/2018 01/11/2019 Frequency of urination 03/19/201802/11 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/11/2019 documented as of this encounter (statuses as of 11/21/2022) [address]10-2021 History of Past illness Narrative* Problem Noted Date Diagnosed Date Resolved Date Closed left subtrochanteric femur fracture 07/22/2020 07/27/2020 Facial numbness 03/31/2019 04/03/2019 GI bleed 12/31/2018 01/11/2019 Frequency of urination 03/19/201802/11 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/11/2019 documented as of this encounter (statuses as of 11/22/2022) [address]10-2021 History of Past illness Narrative* Problem Noted Date Diagnosed Date Resolved Date Closed left subtrochanteric femur fracture 07/22/2020 07/27/2020 Facial numbness 03/31/2019 04/03/2019 GI bleed 12/31/2018 01/11/2019 Frequency of urination 03/19/201802/11 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/11/2019 documented as of this encounter (statuses as of 11/23/2022) [address]10-2021 History of Past illness Narrative* Problem Noted Date Diagnosed Date Resolved Date Closed left subtrochanteric femur fracture 07/22/2020 07/27/2020 Facial numbness 03/31/2019 04/03/2019 GI bleed 12/31/2018 01/11/2019 Frequency of urination 03/19/201802/11 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 documented as of this encounter (statuses as of 11/24/2022) [address]10-2021 History of Past illness Narrative* Problem Noted Date Diagnosed Date Resolved Date Closed left subtrochanteric femur fracture 07/22/2020 07/27/2020 Facial numbness 03/31/2019 04/03/2019 GI bleed 12/31/2018 01/11/2019 Frequency of urination 03/19/201802/11 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/11/2019 documented as of this encounter (statuses as of 11/26/2022) [address]10-2021 History of Past illness Narrative* Problem Noted Date Diagnosed Date Resolved Date Closed left subtrochanteric femur fracture 07/22/2020 07/27/2020 Facial numbness 03/31/2019 04/03/2019 GI bleed 12/31/2018 01/11/2019 Frequency of urination 03/19/201802/11 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/11/2019 documented as of this encounter (statuses as of 11/27/2022) [address]10-2021 History of Past illness Narrative* Problem Noted Date Diagnosed Date Resolved Date Closed left subtrochanteric femur fracture 07/22/2020 07/27/2020 Facial numbness 03/31/2019 04/03/2019 GI bleed 12/31/2018 01/11/2019 Frequency of urination 03/19/201802/11 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 documented as of this encounter (statuses as of 11/27/2022) [address]10-2021 History of Past illness Narrative* Problem Noted Date Diagnosed Date Resolved Date Closed left subtrochanteric femur fracture 07/22/2020 07/27/2020 Facial numbness 03/31/2019 04/03/2019 GI bleed 12/31/2018 01/11/2019 Frequency of urination 03/19/201802/11 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 documented as of this encounter (statuses as of 11/28/2022) [address]10-2021 History of Past illness Narrative* Problem Noted Date Diagnosed Date Resolved Date Closed left subtrochanteric femur fracture 07/22/2020 07/27/2020 Facial numbness 03/31/2019 04/03/2019 GI bleed 12/31/2018 01/11/2019 Frequency of urination 03/19/201802/11 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 documented as of this encounter (statuses as of 11/28/2022) [address]10-2021 History of Past illness Narrative* Problem Noted Date Diagnosed Date Resolved Date Closed left subtrochanteric femur fracture 07/22/2020 07/27/2020 Facial numbness 03/31/2019 04/03/2019 GI bleed 12/31/2018 01/11/2019 Frequency of urination 03/19/201802/11 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 documented as of this encounter (statuses as of 11/29/2022) [place] [address]-10-2021 History of Past illness Narrative* Problem Noted Date Diagnosed Date Resolved Date Closed left subtrochanteric femur fracture 07/22/2020 07/27/2020 Facial numbness 03/31/2019 04/03/2019 GI bleed 12/31/2018 01/11/2019 Frequency of urination 03/19/201802/11 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 documented as of this encounter (statuses as of 12/09/2022) [place] [address]-10-2021 History of Past illness Narrative* Problem Noted Date Diagnosed Date Resolved Date Closed left subtrochanteric femur fracture 07/22/2020 07/27/2020 Facial numbness 03/31/2019 04/03/2019 GI bleed 12/31/2018 01/11/2019 Frequency of urination 03/19/201802/11 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/2019 documented as of this encounter (statuses as of 12/10/2022) [facility] No data available for this section [facility] Evaluation note* Diagnosis Impaired functional mobility, balance, gait, and endurance- Primary Chronic pain of left knee Pain in joint, lower leg Left hip pain Pain in joint, pelvic region and thigh [facility] Elevated prostate specific antigen (PSA)- Primary Personal history of renal cancer Personal history of malignant neoplasm of kidney Hydrocele in adult Renal cancer, right (HCC) 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 [facility] Impaired functional mobility, balance, gait, and endurance- Primary [facility] Impaired functional mobility, balance, gait, and endurance- Primary Left hip pain Pain in joint, pelvic region and thigh Chronic pain of left knee Pain in joint, lower leg [facility] Diagnosis Impaired functional mobility, balance, gait, and endurance- Primary Left hip pain Pain in joint, pelvic region and thigh [facility] Impaired functional mobility, balance, gait, and endurance- Primary Left hip pain Pain in joint, pelvic region and thigh Chronic pain of left knee Pain in joint, lower leg Pain in left hip Pain in joint, pelvic region and thigh [facility] Diagnosis Impaired functional mobility, balance, gait, and endurance- Primary Chronic pain of left knee Pain in joint, lower leg Left hip pain Pain in joint, pelvic region and thigh [facility] Diagnosis Impaired functional mobility, balance, gait, and endurance- Primary Chronic pain of left knee Pain in joint, lower leg Left hip pain Pain in joint, pelvic region and thigh [facility] Diagnosis Impaired functional mobility, balance, gait, and endurance- Primary Chronic pain of left knee Pain in joint, lower leg Left hip pain Pain in joint, pelvic region and thigh [facility]* Diagnosis CLL (chronic lymphocytic leukemia) (HCC)- Primary Chronic lymphoid leukemia, without mention of having achieved remission [facility] Diagnosis Elevated prostate specific antigen (PSA)- Primary [facility]* Diagnosis Impaired functional mobility, balance, gait, and endurance- Primary Chronic pain of left knee Pain in joint, lower leg Left hip pain Pain in joint, pelvic region and thigh [facility] Diagnosis Elevated PSA- Primary Elevated prostate specific antigen (PSA) Primary insomnia Persistent disorder of initiating or maintaining sleep [facility] Diagnosis Impaired functional mobility, balance, gait, and endurance- Primary Chronic pain of left knee Pain in joint, lower leg Left hip pain Pain in joint, pelvic region and thigh [facility]* Diagnosis Iron deficiency anemia due to chronic blood loss- Primary Iron deficiency anemia secondary to blood loss (chronic) Other insomnia [facility]* Diagnosis Impaired functional mobility, balance, gait, and endurance- Primary [facility]* Diagnosis Post PTCA- Primary Postsurgical percutaneous transluminal coronary angioplasty status Mixed hyperlipidemia [facility]* Diagnosis Impaired functional mobility, balance, gait, and endurance- Primary Left hip pain Pain in joint, pelvic region and thigh [facility]* Diagnosis Renal cancer, right (HCC)- Primary Other insomnia CLL (chronic lymphocytic leukemia) (HCC) Chronic lymphoid leukemia, without mention of having achieved remission [facility]* Diagnosis Iron deficiency anemia due to chronic blood loss- Primary Iron deficiency anemia secondary to blood loss (chronic) [facility]* Diagnosis Other insomnia Renal cancer, right (HCC) CLL (chronic lymphocytic leukemia) (HCC) Chronic lymphoid leukemia, without mention of having achieved remission [facility]* Diagnosis Other insomnia Renal cancer, right (HCC) CLL (chronic lymphocytic leukemia) (HCC) Chronic lymphoid leukemia, without mention of having achieved remission [facility]* Diagnosis Impaired functional mobility, balance, gait, and endurance- Primary Left hip pain Pain in joint, pelvic region and thigh Chronic pain of left knee Pain in joint, lower leg [facility]* Diagnosis Diarrhea, unspecified type- Primary Acute deep vein thrombosis (DVT) of left lower extremity, unspecified vein (HCC) Iron deficiency anemia due to chronic blood loss Iron deficiency anemia secondary to blood loss (chronic) [facility]* Diagnosis Impaired functional mobility, balance, gait, and endurance- Primary Left hip pain Pain in joint, pelvic region and thigh Chronic pain of left knee Pain in joint, lower leg [facility]* Diagnosis Iron deficiency anemia due to chronic blood loss- Primary Iron deficiency anemia secondary to blood loss (chronic) [facility]* Diagnosis Chronic insomnia- Primary Insomnia, unspecified Acute blood loss anemia- Primary Acute posthemorrhagic anemia [facility]* Diagnosis Essential thrombocythemia (HCC)- Primary Essential thrombocythemia [facility]* Diagnosis Left hip pain- Primary Pain in joint, pelvic region and thigh [facility]* Diagnosis Other insomnia Renal cancer, right (HCC) CLL (chronic lymphocytic leukemia) (HCC) Chronic lymphoid leukemia, without mention of having achieved remission [facility]* Diagnosis Left hip pain- Primary Pain in joint, pelvic region and thigh Impaired functional mobility, balance, gait, and endurance [facility]* Diagnosis Chronic diarrhea- Primary Diarrhea Neck pain Cervicalgia [facility]* Diagnosis Left hip pain- Primary Pain in joint, pelvic region and thigh Impaired functional mobility, balance, gait, and endurance [facility]* Diagnosis Iron deficiency anemia due to chronic blood loss- Primary Iron deficiency anemia secondary to blood loss (chronic) [facility]* Diagnosis Other insomnia Renal cancer, right (HCC) CLL (chronic lymphocytic leukemia) (HCC) Chronic lymphoid leukemia, without mention of having achieved remission [facility]* Diagnosis Renal cancer, right (HCC)- Primary 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 Elevated prostate specific antigen (PSA) Hydrocele in adult [facility]* Diagnosis Iron deficiency anemia due to chronic blood loss Iron deficiency anemia secondary to blood loss (chronic) [facility]* Diagnosis Muscular deconditioning- Primary Muscular wasting and disuse atrophy, not elsewhere classified [facility]* Diagnosis Iron deficiency anemia due to chronic blood loss- Primary Iron deficiency anemia secondary to blood loss (chronic) Other iron deficiency anemia Gastroesophageal reflux disease, unspecified whether esophagitis present [facility]* Diagnosis Iron deficiency anemia due to chronic blood loss- Primary Iron deficiency anemia secondary to blood loss (chronic) Other iron deficiency anemia Gastroesophageal reflux disease, unspecified whether esophagitis present [facility]* Diagnosis Essential thrombocythemia (HCC) Essential thrombocythemia [facility]* Diagnosis Iron deficiency anemia due to chronic blood loss- Primary Iron deficiency anemia secondary to blood loss (chronic) Other iron deficiency anemia Gastroesophageal reflux disease, unspecified whether esophagitis present [facility]* Diagnosis Essential thrombocythemia (HCC) Essential thrombocythemia [facility]* Diagnosis Impaired functional mobility, balance, gait, and endurance- Primary [facility]* Diagnosis Iron deficiency anemia due to chronic blood loss- Primary Iron deficiency anemia secondary to blood loss (chronic) [facility]* Diagnosis Other insomnia Renal cancer, right (HCC) CLL (chronic lymphocytic leukemia) (HCC) Chronic lymphoid leukemia, without mention of having achieved remission [facility]* Diagnosis Impaired functional mobility, balance, gait, and endurance- Primary Muscular deconditioning Muscular wasting and disuse atrophy, not elsewhere classified [facility]* Diagnosis Wheeze- Primary Wheezing [facility]* Diagnosis URI with cough and congestion- Primary Wheeze Wheezing [facility]* Diagnosis URI with cough and congestion Wheeze Wheezing [facility]* Diagnosis Other insomnia Renal cancer, right (HCC) CLL (chronic lymphocytic leukemia) (HCC) Chronic lymphoid leukemia, without mention of having achieved remission [facility]* Diagnosis Other insomnia Renal cancer, right (HCC) CLL (chronic lymphocytic leukemia) (HCC) Chronic lymphoid leukemia, without mention of having achieved remission [facility]* Diagnosis Physical deconditioning- Primary Debility, unspecified [facility]* Diagnosis Physical deconditioning- Primary Debility, unspecified Impaired functional mobility, balance, gait, and endurance [facility]* Diagnosis Bronchitis- Primary Bronchitis, not specified as acute or chronic [facility]* Diagnosis Physical deconditioning- Primary Debility, unspecified Impaired functional mobility, balance, gait, and endurance Muscular deconditioning Muscular wasting and disuse atrophy, not elsewhere classified [facility] [place] [facility] Diagnosis Wheeze Wheezing [facility] Diagnosis Iron deficiency anemia due to chronic blood loss- Primary Iron deficiency anemia secondary to blood loss (chronic) Stage 2 chronic kidney disease AVM (arteriovenous malformation) of small bowel, acquired with hemorrhage Angiodysplasia of intestine with hemorrhage NSTEMI (non-ST elevated myocardial infarction) ([facility]) Acute myocardial infarction, subendocardial infarction, episode of care unspecified [facility] this [facility] [place] [facility]* Diagnosis Physical deconditioning- Primary Debility, unspecified Impaired functional mobility, balance, gait, and endurance Muscular deconditioning Muscular wasting and disuse atrophy, not elsewhere classified [facility] [place] [facility]* Diagnosis Physical deconditioning- Primary Debility, unspecified Impaired functional mobility, balance, gait, and endurance Muscular deconditioning Muscular wasting and disuse atrophy, not elsewhere classified [facility] [place] [facility]* Diagnosis Physical deconditioning- Primary Debility, unspecified Impaired functional mobility, balance, gait, and endurance Muscular deconditioning Muscular wasting and disuse atrophy, not elsewhere classified [facility] [place] [facility]* Diagnosis Essential thrombocythemia (HCC)- Primary Essential thrombocythemia documented [facility] [place] [facility]* Diagnosis Physical deconditioning- Primary Debility, unspecified [facility] [place] [facility]* Diagnosis Physical deconditioning- Primary Debility, unspecified Impaired functional mobility, balance, gait, and endurance documented [facility] this [facility] [place] [facility]* Diagnosis Other insomnia Renal cancer, right (HCC) CLL (chronic lymphocytic leukemia) (HCC) Chronic lymphoid leukemia, without mention of having achieved remission documented [facility] [place] [facility]* Diagnosis Chronic obstructive pulmonary disease with acute exacerbation (HCC)- Primary Obstructive chronic bronchitis with exacerbation Deep vein thrombosis (DVT) of left lower extremity, unspecified chronicity, unspecified vein (HCC) Localized swelling, mass and lump, left upper limb History of colonic polyps Personal history of colonic polyps documented [facility] [place] [facility]* Diagnosis Deep vein thrombosis (DVT) of left lower extremity, unspecified chronicity, unspecified vein (HCC) Localized swelling, mass and lump, left upper limb [facility] Diagnosis Iron deficiency anemia due to chronic blood loss- Primary Iron deficiency anemia secondary to blood loss (chronic) Acute deep vein thrombosis (DVT) of popliteal vein of left lower extremity (HCC) Right calf pain [facility] Diagnosis NSTEMI (non-ST elevated myocardial infarction) ([facility])- Primary Acute myocardial infarction, subendocardial infarction, episode of care unspecified Post PTCA Postsurgical percutaneous transluminal coronary angioplasty status Mixed hyperlipidemia Essential hypertension Unspecified essential hypertension Chronic kidney disease, unspecified CKD stage Gastrointestinal hemorrhage associated with intestinal diverticulosis CLL (chronic lymphocytic leukemia) (HCC) Chronic lymphoid leukemia, without mention of having achieved remission Personal history of DVT (deep vein thrombosis) Personal history of venous thrombosis and embolism [facility] Diagnosis Chronic obstructive pulmonary disease with acute exacerbation (HCC) Obstructive chronic bronchitis with exacerbation [facility]* Diagnosis Iron deficiency anemia due to chronic blood loss Iron deficiency anemia secondary to blood loss (chronic) Acute deep vein thrombosis (DVT) of popliteal vein of left lower extremity (HCC) Right calf pain [facility]* Diagnosis Iron deficiency anemia due to chronic blood loss Iron deficiency anemia secondary to blood loss (chronic) Acute deep vein thrombosis (DVT) of popliteal vein of left lower extremity (HCC) Right calf pain [facility]* Diagnosis Wheeze Wheezing [facility]* Diagnosis Chronic obstructive pulmonary disease with acute exacerbation (HCC)- Primary Obstructive chronic bronchitis with exacerbation [facility]* Diagnosis Other insomnia Renal cancer, right (HCC) CLL (chronic lymphocytic leukemia) (HCC) Chronic lymphoid leukemia, without mention of having achieved remission [facility]* Diagnosis Other insomnia- Primary Renal cancer, right (HCC) Essential thrombocythemia (HCC) Essential thrombocythemia [facility]* Diagnosis Gastrointestinal hemorrhage, unspecified gastrointestinal hemorrhage type Iron deficiency anemia due to chronic blood loss Iron deficiency anemia secondary to blood loss (chronic) [facility] Diagnosis Iron deficiency anemia due to chronic blood loss- Primary Iron deficiency anemia secondary to blood loss (chronic) [facility]* Diagnosis Chronic cough Cough [facility]* Diagnosis Iron deficiency anemia due to chronic blood loss- Primary Iron deficiency anemia secondary to blood loss (chronic) Acute blood loss anemia- Primary Acute posthemorrhagic anemia Severe anemia Stage 3 chronic kidney disease, unspecified whether stage 3a or 3b CKD (HCC) Other iron deficiency anemia [facility]* Diagnosis Acute blood loss anemia- Primary Acute posthemorrhagic anemia Severe anemia Stage 3 chronic kidney disease, unspecified whether stage 3a or 3b CKD (HCC) Other iron deficiency anemia [facility]* Diagnosis Iron deficiency anemia due to chronic blood loss- Primary Iron deficiency anemia secondary to blood loss (chronic) Gastrointestinal hemorrhage, unspecified gastrointestinal hemorrhage type Stage 3 chronic kidney disease, unspecified whether stage 3a or 3b CKD (HCC)- Primary Acute blood loss anemia Acute posthemorrhagic anemia Severe anemia Other iron deficiency anemia [facility]* Diagnosis Essential thrombocythemia (HCC)- Primary Essential thrombocythemia [facility]* Diagnosis Essential thrombocythemia (HCC)- Primary Essential thrombocythemia Leg edema Edema Other insomnia Renal cancer, right (HCC) CLL (chronic lymphocytic leukemia) (HCC) Chronic lymphoid leukemia, without mention of having achieved remission [facility]* Diagnosis Leg edema Edema [facility]* Diagnosis Other insomnia Renal cancer, right (HCC) CLL (chronic lymphocytic leukemia) (HCC) Chronic lymphoid leukemia, without mention of having achieved remission [facility]* Diagnosis Deep vein thrombosis (DVT) of femoral vein of left lower extremity, unspecified chronicity (HCC)- Primary [facility]* Diagnosis Essential thrombocythemia (HCC)- Primary Essential thrombocythemia [facility]* Diagnosis Malaise and fatigue- Primary Other malaise and fatigue [facility]* Diagnosis CIRA (obstructive sleep apnea)- Primary Obstructive sleep apnea (adult) (pediatric) Deep vein thrombosis (DVT) of femoral vein of left lower extremity, unspecified chronicity (HCC) Essential thrombocythemia (HCC) Essential thrombocythemia CLL (chronic lymphocytic leukemia) (HCC) Chronic lymphoid leukemia, without mention of having achieved remission [facility] Diagnosis Essential thrombocythemia (HCC) Essential thrombocythemia [facility] Diagnosis Essential thrombocythemia (HCC)- Primary Essential thrombocythemia Renal cancer, right (HCC) [facility] Diagnosis Essential thrombocythemia (HCC)- Primary Essential thrombocythemia CLL (chronic lymphocytic leukemia) (HCC) Chronic lymphoid leukemia, without mention of having achieved remission [facility]* Diagnosis Iron deficiency anemia due to chronic blood loss- Primary Iron deficiency anemia secondary to blood loss (chronic) SOB (shortness of breath) Shortness of breath Lightheadedness Dizziness and giddiness [facility]* Diagnosis Essential thrombocythemia (HCC)- Primary Essential thrombocythemia [facility] [place] [facility]* Diagnosis 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 medical condition- Primary Mood disorder in conditions classified elsewhere [facility] [place] [facility]* Diagnosis CIRA on CPAP- Primary Obstructive sleep apnea (adult) (pediatric) Primary insomnia Persistent disorder of initiating or maintaining sleep Severe muscle deconditioning Other specific muscle disorders [facility]* Diagnosis CLL (chronic lymphocytic leukemia) (HCC)- Primary Chronic lymphoid leukemia, without mention of having achieved remission Essential thrombocythemia (HCC) Essential thrombocythemia Acute blood loss anemia- Primary Acute posthemorrhagic anemia Severe anemia Stage 3 chronic kidney disease, unspecified whether stage 3a or 3b CKD (HCC) Other iron deficiency anemia [facility]* Diagnosis Pulmonary embolism, unspecified chronicity, unspecified pulmonary embolism type, unspecified whether acute cor pulmonale present (HCC)- Primary Renal cancer, right (HCC) Deep vein thrombosis (DVT) of femoral vein of left lower extremity, unspecified chronicity (HCC) [facility]* Diagnosis Atrial fibrillation, unspecified type (CMS/HCC)- Primary documented in this encounter [facility] Work Phone: Evaluation note* Diagnosis Acute midline low back pain without sciatica- Primary Physical deconditioning Debility, unspecified documented in this encounter [facility]* Diagnosis Physical deconditioning- Primary Debility, unspecified documented in this encounter [facility] note* Diagnosis Physical deconditioning- Primary Debility, unspecified Acute midline low back pain without sciatica Impaired functional mobility, balance, gait, and endurance documented in this encounter [facility] note* Diagnosis Physical deconditioning- Primary Debility, unspecified documented in this encounter [facility] note* Diagnosis Physical deconditioning- Primary Debility, unspecified documented in this encounter [facility] note* Diagnosis Physical deconditioning- Primary Debility, unspecified Acute midline low back pain without sciatica documented in this encounter [facility] note* Diagnosis Physical deconditioning- Primary Debility, unspecified documented in this encounter [facility] note* Diagnosis Physical deconditioning- Primary Debility, unspecified documented in this encounter [facility] note* Diagnosis Physical deconditioning- Primary Debility, unspecified Acute midline low back pain without sciatica Impaired functional mobility, balance, gait, and endurance documented in this encounter [facility] note* Diagnosis Acute midline low back pain without sciatica- Primary documented in this encounter [facility] note* Diagnosis Iron deficiency anemia due to chronic blood loss- Primary Iron deficiency anemia secondary to blood loss (chronic) documented in this encounter [facility] note* Diagnosis Other non-recurrent acute nonsuppurative otitis media of right ear- Primary Wheezing Acute cough documented in this encounter [facility] note* Diagnosis Iron deficiency anemia due to chronic blood loss- Primary Iron deficiency anemia secondary to blood loss (chronic) documented in this encounter [facility] note* Diagnosis Impaired functional mobility, balance, gait, and endurance- Primary documented in this encounter [facility] note* Diagnosis Impaired functional mobility, balance, gait, and endurance- Primary documented in this encounter [facility] note* Diagnosis Impaired functional mobility, balance, gait, and endurance- Primary Acute midline low back pain without sciatica Physical deconditioning Debility, unspecified Muscular deconditioning Muscular wasting and disuse atrophy, not elsewhere classified documented in this encounter [facility] Attachments The following attachments cannot be sent through Care Everywhere. * Ear Infection ED ([place]) * Azithromycin (Systemic), ADULT ([place]) documented in this [facility] for referral (narrative)* Outpatient Procedure (Routine) - Pending Review Specialty Diagnoses / Procedures Referred By Contac t Referred To Contact [facility] Diagnoses History of colonic polyps Procedures COLONOSCOPY SCREENING COLONOSCOPY FLX DX W/COLLJ SPEC WHEN PFRMD Ulises Ramos DO [address] [place] [address] [facility] [address] [place] [address] Referral ID Status Reason Start Date Expiration Date Visits Requested Visits Authorized [id number] Pending Review Auto-Generat ed Referral 07/02/2022 07/03/2023 1 1 * Diagnostic Procedure Only (Routine) - Pending Review Specialty Diagnoses / Procedures Referred By Contac t Referred To Contact US IMAGING Diagnoses Deep vein thrombosis (DVT) of left lower extremity, unspecified chronicity, unspecified vein (HCC) Localized swelling, mass and lump, left upper limb Procedures US DVT LOWER LT DUP-SCAN XTR VEINS UNILATERAL/LIMITED STUDY Ulises Ramos DO [address] [place] [address] Us Imaging Referral ID Status Reason Start Date Expiration Date Visits Requested Visits Authorized [id number] Pending Review Auto-Generat ed Referral 07/02/2022 08/01/2023 1 1 * Outpatient Procedure (Routine) - Pending Review Specialty Diagnoses / Procedures Referred By Contac t Referred To Contact [facility] Diagnoses Chronic obstructive pulmonary disease with acute exacerbation (HCC) Procedures SPIROMETRY - BASELINE AND POST DILATOR BRNCDILAT RSPSE SPMTRY PRE&POST-BRNCDILAT ADMN Ulises Ramos DO [address] [place] [address] [facility] [place] [address] [place] [address] Referral ID Status Reason Start Date Expiration Date Visits Requested Visits Authorized [id number] Pending Review Auto-Generat ed Referral 07/02/2022 08/01/2023 1 1 [facility] for referral (narrative)* Diagnostic Procedure Only (Routine) - Closed Specialty Diagnoses / Procedures Referred By Contac t Referred To Contact US IMAGING Diagnoses Deep vein thrombosis (DVT) of left lower extremity, unspecified chronicity, unspecified vein (HCC) Localized swelling, mass and lump, left upper limb Procedures US DVT LOWER LT DUP-SCAN XTR VEINS UNILATERAL/LIMITED STUDY Ulises Ramos, DO [address] [place] [address] Us Imaging Referral ID Status Reason Start Date Expiration Date V isits Requested Visits Authorized [id number] Closed Auto-Generate d Referral 07/02/2022 08/01/2023 1 1 [facility] for referral (narrative)* Diagnostic Procedure Only (Routine) - Authorized Specialty Diagnoses / Procedures Referred By Contac t Referred To Contact US IMAGING Diagnoses Iron deficiency anemia due to chronic blood loss Acute deep vein thrombosis (DVT) of popliteal vein of left lower extremity (HCC) Right calf pain Procedures US EXTREMITY MASS/FLUID COLLECTION LEFT Ulises Ramos, DO [address] [place] [address] Us Imaging Referral ID Status Reason Start Date Expiration Date Visits Requested Visits Authorized [id number] Authorized Auto-Generat ed Referral 07/11/2022 08/10/2023 1 1 * Diagnostic Procedure Only (Routine) - Authorized Specialty Diagnoses / Procedures Referred By Contac t Referred To Contact US IMAGING Diagnoses Iron deficiency anemia due to chronic blood loss Acute deep vein thrombosis (DVT) of popliteal vein of left lower extremity (HCC) Right calf pain Procedures US DVT LOWER RIGHT DUP-SCAN XTR VEINS UNILATERAL/LIMITED STUDY Ulises Ramos, DO [address] [place] [address] Us Imaging Referral ID Status Reason Start Date Expiration Date Visits Requested Visits Authorized [id number] Authorized Auto-Generat ed Referral 07/11/2022 08/10/2023 1 1 [facility] for referral (narrative)* Diagnostic Procedure Only (Routine) - Closed Specialty Diagnoses / Procedures Referred By Contac t Referred To Contact US IMAGING Diagnoses Iron deficiency anemia due to chronic blood loss Acute deep vein thrombosis (DVT) of popliteal vein of left lower extremity (HCC) Right calf pain Procedures US DVT LOWER RIGHT DUP-SCAN XTR VEINS UNILATERAL/LIMITED STUDY Ulises Ramos, [address] [place] [address] Us Imaging Referral ID Status Reason Start Date Expiration Date V isits Requested Visits Authorized [id number] Closed Auto-Generate d Referral 07/11/2022 08/10/2023 1 1 [facility] for referral (narrative)* Diagnostic Procedure Only (Routine) - Closed Specialty Diagnoses / Procedures Referred By Contac t Referred To Contact US IMAGING Diagnoses Iron deficiency anemia due to chronic blood loss Acute deep vein thrombosis (DVT) of popliteal vein of left lower extremity (HCC) Right calf pain Procedures US EXTREMITY MASS/FLUID COLLECTION LEFT Ulises Ramos, DO [address] [place] [address] Us Imaging Referral ID Status Reason Start Date Expiration Date V isits Requested Visits Authorized [id number] Closed Auto-Generate d Referral 07/11/2022 08/10/2023 1 1 [facility] for referral (narrative)* Outpatient Procedure (Routine) - Pending Review Specialty Diagnoses / Procedures Referred By Contac t Referred To Contact [facility] Diagnoses Gastrointestinal hemorrhage, unspecified gastrointestinal hemorrhage type Procedures COLONOSCOPY DIAGNOSTIC COLONOSCOPY FLX DX W/COLLJ SPEC WHEN Hortencia Henderson MD [address] [place] [address] [address] Referral ID Status Reason Start Date Expiration Date Visits Requested Visits Authorized [id number] Pending Review Auto-Generat ed Referral 08/07/2022 08/08/2023 1 1 * Outpatient Procedure (Routine) - Pending Review Specialty Diagnoses / Procedures Referred By Contac t Referred To Contact [facility] Diagnoses Gastrointestinal hemorrhage, unspecified gastrointestinal hemorrhage type Procedures ENTEROSCOPY ENDOSCOPY UPPER SMALL INTESTINE Hortencia Gallardo MD [address] [place] [address] [address] Referral ID Status Reason Start Date Expiration Date Visits Requested Visits Authorized [id number] Pending Review Auto-Generat ed Referral 08/07/2022 08/08/2023 1 1 [facility] for referral (narrative)* Outpatient Procedure (Routine) - Closed Specialty Diagnoses / Procedures Referred By Contac t Referred To [facility] Diagnoses Gastrointestinal hemorrhage, unspecified gastrointestinal hemorrhage type Procedures COLONOSCOPY DIAGNOSTIC COLONOSCOPY FLX DX W/COLLJ SPEC WHEN Hortencia Henderson MD [address] [place] [address] [address] Referral ID Status Reason Start Date Expiration Date V isits Requested Visits Authorized [id number] Closed Auto-Generate d Referral 08/07/2022 08/08/2023 1 1 * Outpatient Procedure (Routine) - Closed Specialty Diagnoses / Procedures Referred By Contac t Referred To Contact [facility] Diagnoses Gastrointestinal hemorrhage, unspecified gastrointestinal hemorrhage type Procedures ENTEROSCOPY ENDOSCOPY UPPER SMALL INTESTINE Hortencia Gallardo MD [address] [place] [address] [facility] [place] [address] [place] [address] Referral ID Status Reason Start Date Expiration Date V isits Requested Visits Authorized [id number] Closed Auto-Generate d Referral 08/07/2022 08/08/2023 1 1 [facility] for referral (narrative)* Diagnostic Procedure Only (Routine) - Closed Specialty Diagnoses / Procedures Referred By Contac t Referred To Contact US IMAGING Diagnoses Leg edema Procedures US DVT LOWER BILATERAL DUP-SCAN XTR VEINS COMPLETE BILATERAL STUDY Halle Dale MD [address] [place] [address] Us Imaging Referral ID Status Reason Start Date Expiration Date V isits Requested Visits Authorized [id number] Closed Auto-Generate d Referral 10/16/2022 11/15/2023 1 1 [facility] for referral (narrative)* Diagnostic Procedure Only (Routine) - Closed Specialty Diagnoses / Procedures Referred By Contac t Referred To Contact US IMAGING Diagnoses Leg edema Procedures US DVT LOWER BILATERAL DUP-SCAN XTR VEINS COMPLETE BILATERAL STUDY Halle Dale MD [address] [place] [address] Us Imaging Referral ID Status Reason Start Date Expiration Date V isits Requested Visits Authorized [id number] Closed Auto-Generate d Referral 10/16/2022 11/15/2023 1 1 [facility] for visit Narrative* Diagnostic Procedure Only (Routine) - Closed Specialty Diagnoses / Procedures Referred By Contac t Referred To Contact US IMAGING Diagnoses Deep vein thrombosis (DVT) of left lower extremity, unspecified chronicity, unspecified vein (HCC) Localized swelling, mass and lump, left upper limb Procedures US DVT LOWER LT DUP-SCAN XTR VEINS UNILATERAL/LIMITED STUDY Ulises Ramos, [place] [address] Us Imaging Referral ID Status Reason Start Date Expiration Date V isits Requested Visits Authorized [id number] Closed Auto-Generate d Referral 07/02/2022 08/01/2023 1 1 [facility] for visit Narrative* Diagnostic Procedure Only (Routine) - Closed Specialty Diagnoses / Procedures Referred By Contac t Referred To Contact US IMAGING Diagnoses Iron deficiency anemia due to chronic blood loss Acute deep vein thrombosis (DVT) of popliteal vein of left lower extremity (HCC) Right calf pain Procedures US DVT LOWER RIGHT DUP-SCAN XTR VEINS UNILATERAL/LIMITED STUDY Ulises Ramos, DO [address] [place] [address] Us Imaging Referral ID Status Reason Start Date Expiration Date V isits Requested Visits Authorized [id number] Closed Auto-Generate d Referral 07/11/2022 08/10/2023 1 1 [facility] for visit Narrative* Diagnostic Procedure Only (Routine) - Closed Specialty Diagnoses / Procedures Referred By Contac t Referred To Contact US IMAGING Diagnoses Iron deficiency anemia due to chronic blood loss Acute deep vein thrombosis (DVT) of popliteal vein of left lower extremity (HCC) Right calf pain Procedures US EXTREMITY MASS/FLUID COLLECTION LEFT Ulises Ramos, DO [address] [place] [address] Us Imaging Referral ID Status Reason Start Date Expiration Date V isits Requested Visits Authorized [id number] Closed Auto-Generate d Referral 07/11/2022 08/10/2023 1 1 [facility] for visit Narrative* Outpatient Procedure (Routine) - Closed Specialty Diagnoses / Procedures Referred By Contac t Referred To Contact [facility] Diagnoses Gastrointestinal hemorrhage, unspecified gastrointestinal hemorrhage type Procedures COLONOSCOPY DIAGNOSTIC COLONOSCOPY FLX DX W/COLLJ SPEC WHEN Hortencia Henderson MD [address] [place] [address] [facility] [address] [place] [address] Referral ID Status Reason Start Date Expiration Date V isits Requested Visits Authorized [id number] Closed Auto-Generate d Referral 08/07/2022 08/08/2023 1 1 [facility]* Diagnostic Procedure Only (Routine) - Closed Specialty Diagnoses / Procedures Referred By Yasmin t Referred To Contact US IMAGING Diagnoses Leg edema Procedures US DVT LOWER BILATERAL DUP-SCAN XTR VEINS COMPLETE BILATERAL STUDY Halle Dale MD [address] [place] [address] Us Imaging Referral ID Status Reason Start Date Expiration Date V isits Requested Visits Authorized [id number] Closed Auto-Generate d Referral 10/16/2022 11/15/2023 1 1 [facility] Summary Purpose Family History No Family History Records FoundNo Family History Records FoundNo Family History Records FoundNo Family History Records FoundNo Family History Records Found No data available for this section No Family History Records FoundNo Family History Records FoundNo Family History Records FoundNo Family History Records FoundNo Family History Records Found Advance Directives No Advanced Directives Records FoundDocuments on File Type Date Recorded Patient Bell Spinner Expl anation Advance Directive(s) 06/02/2017 1:46 PM Date Activated Date Inactivated Comments 12/02/2022 12:45 AM 12/11/2022 7:03 PM Question Answer Comments Full Code Order Discussed With: Patient Date Activated Date Inactivated Comments 05/16/2021 1:19 PM 05/16/2021 5:57 PM Question Answer Comments Full Code Order Discussed With: Patient Date Activated Date Inactivated Comments 03/31/2019 5:24 PM 04/03/2019 2:13 PM Question Answer Comments Full Code Order Discussed With: Patient Latest Code Status on File Code Status Date Activated Date Inactivated Comments Full Code 05/16/2021 1:19 PM 05/16/2021 5:57 PM Full Code Order Discussed With: Patient Full Code 03/31/2019 5:24 PM 04/03/2019 2:13 PM Documents on File Type Date Recorded Patient Bell Spinner Expl anation Advance Directive(s) 05/01/2021 6:25 PM Advance Directive(s) 12/01/2020 3:57 AM Advance Directive(s) 07/22/2020 6:16 PM Advance Directive(s) 01/24/2020 6:17 AM Advance Directive(s) 11/29/2019 10:46 AM Advance Directive(s) 11/23/2019 11:49 AM Advance Directive(s) 03/31/2019 1:56 PM Advance Directive(s) 01/07/2019 11:56 AM Advance Directive(s) 12/31/2018 11:08 AM Advance Directive(s) 10/24/2018 6:53 PM Advance Directive(s) 03/20/2018 6:31 AM Advance Directive(s) 06/02/2017 1:46 PM Documents on File Type Date Recorded Patient Bell Spinner Expl anation Advance Directive(s) 05/01/2021 6:25 PM Advance Directive(s) 12/01/2020 3:57 AM Advance Directive(s) 07/22/2020 6:16 PM Advance Directive(s) 01/24/2020 6:17 AM Advance Directive(s) 11/29/2019 10:46 AM Advance Directive(s) 11/23/2019 11:49 AM Advance Directive(s) 03/31/2019 1:56 PM Advance Directive(s) 01/07/2019 11:56 AM Advance Directive(s) 12/31/2018 11:08 AM Advance Directive(s) 10/24/2018 6:53 PM Advance Directive(s) 03/20/2018 6:31 AM Advance Directive(s) 06/02/2017 1:46 PM Latest Code Status on File Code Status Date Activated Date Inactivated Comments Full Code 05/16/2021 1:19 PM 05/16/2021 5:57 PM Full Code 03/31/2019 5:24 PM 04/03/2019 2:13 PM Documents on File Type Date Recorded Patient Bell Spinner Expl anation Advance Directive(s) 06/02/2017 1:46 PM Latest Code Status on File Code Status Date Activated Date Inactivated Comments Full Code 05/16/2021 1:19 PM 05/16/2021 5:57 PM Question Answer Comments Full Code Order Discussed With: Patient Code Status History Code Status Date Activated Date Inactivated Comments Full Code 03/31/2019 5:24 PM 04/03/2019 2:13 PM Question Answer Comments Full Code Order Discussed With: Patient Latest Code Status on File Code Status Date Activated Date Inactivated Comments Full Code 05/16/2021 1:19 PM 05/16/2021 5:57 PM Question Answer Comments Full Code Order Discussed With: Patient Code Status History Code Status Date Activated Date Inactivated Comments Full Code 03/31/2019 5:24 PM 04/03/2019 2:13 PM Question Answer Comments Full Code Order Discussed With: Patient Latest Code Status on File Code Status Date Activated Date Inactivated Comments Full Code 12/02/2022 12:45 AM Question Answer Comments Full Code Order Discussed With: Patient Code Status History Code Status Date Activated Date Inactivated Comments Full Code 05/16/2021 1:19 PM 05/16/2021 5:57 PM Question Answer Comments Full Code Order Discussed With: Patient Full Code 03/31/2019 5:24 PM 04/03/2019 2:13 PM Question Answer Comments Full Code Order Discussed With: Patient Latest Code Status on File Code Status Date Activated Date Inactivated Comments Full Code 12/02/2022 12:45 AM 12/11/2022 7:03 PM Question Answer Comments Full Code Order Discussed With: Patient Latest Code Status on File Code Status Date Activated Date Inactivated Comments Full Code 12/02/2022 12:45 AM 12/11/2022 7:03 PM Question Answer Comments Full Code Order Discussed With: Patient Code Status History Code Status Date Activated Date Inactivated Comments Full Code 05/16/2021 1:19 PM 05/16/2021 5:57 PM Question Answer Comments Full Code Order Discussed With: Patient Full Code 03/31/2019 5:24 PM 04/03/2019 2:13 PM Question Answer Comments Full Code Order Discussed With: Patient Reason for Referral Specialty Diagnoses / Procedures Referred By Contac t Referred To Contact Diagnoses Chronic insomnia Procedures CONSULT TO SLEEP MEDICINE - ADULT OFFICE/OUTPATIENT [facility] 60-74 MINUTES Ulises Ramos, [address] [place] [address] Referral ID Status Reason Start Date Expiration Date Visits Requested Visits Authorized [id number] Authorized PCP Requested Referral 10/25/2021 10/25/2022 1 1 Specialty Diagnoses / Procedures Referred By Contac t Referred To Contact Diagnoses Chronic diarrhea Ulises Ramos DO [address] [place] [address] Referral ID Status Reason Start Date Expiration Date V isits Requested Visits Authorized [id number] Pending Review 1 1 Specialty Diagnoses / Procedures Referred By Contac t Referred To Contact [facility] Diagnoses Muscular deconditioning Procedures CONSULT TO PHYSICAL THERAPY PHYSICAL THERAPY [facility] 45 MINS Ulises Ramos, [address] [place] [address] [facility] [address] [address] Referral ID Status Reason Start Date Expiration Date Visits Requested Visits Authorized [id number] Authorized PCP Requested Referral Auto-Generate d Referral 02/20/2022 02/20/2023 99 99 Specialty Diagnoses / Procedures Referred By Contac t Referred To Contact Hortencia Gallardo MD [address] [place], [place] [id number] Referral ID Status Reason Start Date Expiration Date V isits Requested Visits Authorized [id number] Pending Review 1 1 Specialty Diagnoses / Procedures Referred By Contac t Referred To Contact [facility] Diagnoses Physical deconditioning Procedures PT REHAB FOLLOW UP ORDER THERAPEUTIC EXERCISES RE, EA [address] [address] [facility] [address] [address] Referral ID Status Reason Start Date Expiration Date Visits Requested Visits Authorized [id number] Pending Review PCP Requested Referral Auto-Generate d Referral 05/31/2022 08/29/2022 1 1 Specialty Diagnoses / Procedures Referred By Contac t Referred To Contact [facility] Diagnoses Chronic obstructive pulmonary disease with acute exacerbation (HCC) Procedures CONSULT TO PULM/CRITICAL CARE OFFICE/OUTPATIENT [facility] MDM 60-74 MINUTES Ulises Ramos, [address] [place] [address] Referral ID Status Reason Start Date Expiration Date Visits Requested Visits Authorized [id number] Authorized PCP Requested Referral 07/25/2022 07/25/2023 1 1 Specialty Diagnoses / Procedures Referred By Contac t Referred To Contact CT IMAGING Diagnoses Chronic cough Procedures CT CHEST W IVCON DIAGNOSTIC COMPUTED TOMOGRAPHY THORAX W/CONTRAST Ulises Ramos, [address] [address] Ct Imaging Referral ID Status Reason Start Date Expiration Date V isits Requested Visits Authorized [id number] Closed Auto-Generate d Referral 07/30/2022 08/29/2023 1 1 Specialty Diagnoses / Procedures Referred By Contac t Referred To Contact Diagnoses CIRA (obstructive sleep apnea) Ulises Ramos, [address] [place] [address] Referral ID Status Reason Start Date Expiration Date V isits Requested Visits Authorized [id number] Pending Review 1 1 Specialty Diagnoses / Procedures Referred By Contac t Referred To Contact Psychology Diagnoses Renal cancer, right (HCC) Essential thrombocythemia (HCC) Procedures CONSULT TO PSYCHOLOGY OFFICE/OUTPATIENT [facility] MDM 60-74 MINUTES Halle Dale MD [address] [place] [address] Referral ID Status Reason Start Date Expiration Date Visits Requested Visits Authorized [id number] Pending Review PCP Requested Referral 11/24/2022 11/24/2023 1 1 Specialty Diagnoses / Procedures Referred By Contac t Referred To Contact CT IMAGING Diagnoses Renal cancer, right (HCC) Procedures CT CHEST WO IVCON DIAGNOSTIC COMPUTED TOMOGRAPHY THORAX W/O CNTRST Halle Dale MD [address] [place] [address] Ct Imaging Referral ID Status Reason Start Date Expiration Date Visits Requested Visits Authorized [id number] Pending Review Auto-Generat ed Referral 3 12/24/2023 1 1 Specialty Diagnoses / Procedures Referred By Contac t Referred To Contact [facility] Diagnoses Severe muscle deconditioning Procedures CONSULT TO PHYSICAL THERAPY PHYSICAL THERAPY [facility]AL[facility] COM[facility]X 45 MINS Nakul Gallegos MD [address] [facility] [address] [place] [address] [facility] [place] [address] [place] [address] Referral ID Status Reason Start Date Expiration Date Visits Requested Visits Authorized [id number] Authorized PCP Requested Referral Auto-Generate d Referral 12/13/2022 12/13/2023 99 99 Specialty Diagnoses / Procedures Referred By Contac t Referred To Contact Urology Diagnoses Primary insomnia Procedures CONSULT TO UROLOGY OFFICE/OUTPATIENT [facility] 60-74 MINUTES Deo Hyatt MD [address] [place] [address] Referral ID Status Reason Start Date Expiration Date Visits Requested Visits Authorized [id number] Authorized PCP Requested Referral 12/13/2022 12/13/2023 1 1 Specialty Diagnoses / Procedures Referred By Contac t Referred To Contact Diagnoses Essential thrombocythemia (HCC) Procedures CONSULT TO [facility] Halle Dale MD [address] [address] [facility] [address] [place] [address] Referral ID Status Reason Start Date Expiration Date Visits Requested Visits Authorized [id number] Pending Review PCP Requested Referral 12/18/2022 03/18/2023 1 1 Specialty Diagnoses / Procedures Referred By Contac t Referred To Contact Diagnoses Atrial fibrillation, unspecified type (CMS/HCC) Procedures ECG 12 lead (Clinic Performed) Melinda Kraft MD [address] [place] [address] Referral ID Status Reason Start Date Expiration Date V isits Requested Visits Authorized [id number] Pending Review 02/20/2023 02/20/2024 1 1 Medications Administered Section Inactive Administered Medications - up to 3 most recent administrations Medication Order MAR Action Action Date Dose Rate Site iron sucrose 200 mg in NaCl 0.9% 100ml (VENOFER) 200 mg, INTRAVENOUS, at 400 mL/hr, Administer over 15 Minutes, ONCE, 1 dose, On Fri02/26/22 at 1430, Please conduct a 30 minute post dose observation. New Bag/Syringe/Bottle 02/26/2022 2:16 PM EST 200 mg 400 mL/hr Inactive Administered Medications - up to 3 most recent administrations Medication Order MAR Action Action Date Dose Rate Site iron sucrose 200 mg in NaCl 0.9% 100ml (VENOFER) 200 mg, INTRAVENOUS, at 400 mL/hr, Administer over 15 Minutes, ONCE, 1 dose, On Fri03/04/22 at 1400, Please conduct a 30 minute post dose observation. Vol 120mL EXP 03/11/22 1500 New Bag/Syringe/Bottle 03/04/2022 2:05 PM EST 200 mg 400 mL/hr Inactive Administered Medications - up to 3 most recent administrations Medication Order MAR Action Action Date Dose Rate Site iron sucrose 200 mg in NaCl 0.9% 100ml (VENOFER) 200 mg, INTRAVENOUS, at 400 mL/hr, Administer over 15 Minutes, ONCE, 1 dose, On Fri03/13/22 at 1430, Please conduct a 30 minute post dose observation. New Bag/Syringe/Bottle 03/13/2022 2:24 PM EST 200 mg 400 mL/hr Inactive Administered Medications - up to 3 most recent administrations Medication Order MAR Action Action Date Dose Rate Site iron sucrose 200 mg in NaCl 0.9% 100ml (VENOFER) 200 mg, INTRAVENOUS, at 400 mL/hr, Administer over 15 Minutes, ONCE, 1 dose, On Fri03/18/22 at 1430, Please conduct a 30 minute post dose observation. New Bag/Syringe/Bottle 03/18/2022 2:30 PM EST 200 mg 400 mL/hr Inactive Administered Medications - up to 3 most recent administrations Medication Order MAR Action Action Date Dose Rate Site iron sucrose 200 mg in NaCl 0.9% 100ml (VENOFER) 200 mg, INTRAVENOUS, at 400 mL/hr, Administer over 15 Minutes, ONCE, 1 dose, On [place] 03/21/22 at 1430, Please conduct a 30 minute post dose observation. New Bag/Syringe/Bottle 03/21/2022 2:22 PM EST 200 mg 400 mL/hr Inactive Administered Medications - up to 3 most recent administrations Medication Order MAR Action Action Date Dose Rate Site NaCl 0.9% iv infusion 30 mL/hr, INTRAVENOUS, CONTINUOUS, Starting on Fri10/09/22 at 1600, Until Fri10/10/22 at 0433, Preprocedure New Bag/Syringe/Bottle 10/09/2022 4:00 PM EDT 30 mL/hr 30 mL/hr Administered Medications Medication Order MAR Action Action Date Dose Rate Site tuberculin skin test, unspecified formulation Given 07/27/2020 0.1 ml tuberculin skin test, unspecified formulation Given 08/06/2020 Health Concerns Infection Onset Date Last Indicated Resolved Time Rhinovirus 12/04/2022 12/04/2022 Infection Onset Date Last Indicated Resolved Time Respiratory Rule-Out 12/04/2022 12/04/2022 023 12:57 PM EDT Rhinovirus 12/04/2022 12/04/2022 Infection Onset Date Last Indicated Resolved Time Rhinovirus 12/04/2022 12/04/2022 Infection Onset Date Last Indicated Resolved Time COVID-19 Rule-Out 12/01/2022 12/01/2022 12/01/2022 1:31 PM EDT Respiratory Rule-Out 12/04/2022 12/04/2022 023 12:57 PM EDT Rhinovirus 12/04/2022 12/04/2022 12/15/2022 8:51 PM EDT Additional Source Comments (unrecognized sect ion and content) No Status Records FoundNo Status Records FoundNo Status Records FoundNo Status Records FoundNo Status Records FoundNo Status Records FoundNo Status Records FoundNo Status Records FoundNo Status Records FoundNo Status Records Found INFORMATION SOURCE (unrecogn ized section and content) DATE CREATED AUTHOR [facility] DATE CREATED AUTHOR AUTHOR'S ORGANIZ ATION 02/03/2021 [facility] DATE CREATED AUTHOR AUTHOR'S ORGANIZ ATION 02/04/2022 [facility] DATE CREATED AUTHOR AUTHOR'S ORGANIZ ATION 01/23/2023 [facility] DATE CREATED AUTHOR AUTHOR'S ORGANIZ ATION 02/22/2023 [facility] DATE CREATED AUTHOR AUTHOR'S ORGANIZ ATION 05/06/2023 [facility] [employer] [facility] DATE CREATED AUTHOR AUTHOR'S ORGANIZ ATION 05/10/2023 [facility] ([place]) DATE CREATED AUTHOR AUTHOR'S ORGANIZ ATION 08/27/2023 [facility] DATE CREATED AUTHOR AUTHOR'S ORGANIZ ATION 12/07/2023 [facility] DATE CREATED AUTHOR AUTHOR'S ORGANIZ ATION 01/03/2024 [facility] Source Comments (unrecognize d section and content) In the event this informatio n is protected by the Federal Confidentiality of Alcohol and Drug Abuse Patient Records regulations: The Federal rules restrict any use of the information to criminally investigate or prosecute any alcohol or drug abuse patient.[facility] the event this information is protected by the Federal Confidentiality of Alcohol and Drug Abuse Patient Records regulations: The Federal rules restrict any use of the information to criminally investigate or prosecute any alcohol or drug abuse patient.[facility]In the event this information is protected by the Federal Confidentiality of Alcohol and Drug Abuse Patient Records regulations: The Federal rules restrict any use of the information to criminally investigate or prosecute any alcohol or drug abuse patient.[facility]In the event this information is protected by the Federal Confidentiality of Alcohol and Drug Abuse Patient Records regulations: The Federal rules restrict any use of the information to criminally investigate or prosecute any alcohol or drug abuse patient.[facility] the event this information is protected by the Federal Confidentiality of Alcohol and Drug Abuse Patient Records regulations: The Federal rules restrict any use of the information to criminally investigate or prosecute any alcohol or drug abuse patient.[facility]In the event this information is protected by the Federal Confidentiality of Alcohol and Drug Abuse Patient Records regulations: The Federal rules restrict any use of the information to criminally investigate or prosecute any alcohol or drug abuse patient.[facility]In the event this information is protected by the Federal Confidentiality of Alcohol and Drug Abuse Patient Records regulations: The Federal rules restrict any use of the information to criminally investigate or prosecute any alcohol or drug abuse patient.[facility]In the event this information is protected by the Federal Confidentiality of Alcohol and Drug Abuse Patient Records regulations: The Federal rules restrict any use of the information to criminally investigate or prosecute any alcohol or drug abuse patient.[facility]In the event this information is protected by the Federal Confidentiality of Alcohol and Drug Abuse Patient Records regulations: The Federal rules restrict any use of the information to criminally investigate or prosecute any alcohol or drug abuse patient.[facility]In the event this information is protected by the Federal Confidentiality of Alcohol and Drug Abuse Patient Records regulations: The Federal rules restrict any use of the information to criminally investigate or prosecute any alcohol or drug abuse patient.[facility]In the event this information is protected by the Federal Confidentiality of Alcohol and Drug Abuse Patient Records regulations: The Federal rules restrict any use of the information to criminally investigate or prosecute any alcohol or drug abuse patient.[facility]In the event this information is protected by the Federal Confidentiality of Alcohol and Drug Abuse Patient Records regulations: The Federal rules restrict any use of the information to criminally investigate or prosecute any alcohol or drug abuse patient.[facility]In the event this information is protected by the Federal Confidentiality of Alcohol and Drug Abuse Patient Records regulations: The Federal rules restrict any use of the information to criminally investigate or prosecute any alcohol or drug abuse patient.[facility]hillIn the event this information is protected by the Federal Confidentiality of Alcohol and Drug Abuse Patient Records regulations: The Federal rules restrict any use of the information to criminally investigate or prosecute any alcohol or drug abuse patient.[facility]hillIn the event this information is protected by the Federal Confidentiality of Alcohol and Drug Abuse Patient Records regulations: The Federal rules restrict any use of the information to criminally investigate or prosecute any alcohol or drug abuse patient.[facility]hillIn the event this information is protected by the Federal Confidentiality of Alcohol and Drug Abuse Patient Records regulations: The Federal rules restrict any use of the information to criminally investigate or prosecute any alcohol or drug abuse patient.[facility]hillIn the event this information is protected by the Federal Confidentiality of Alcohol and Drug Abuse Patient Records regulations: The Federal rules restrict any use of the information to criminally investigate or prosecute any alcohol or drug abuse patient.[facility]hillIn the event this information is protected by the Federal Confidentiality of Alcohol and Drug Abuse Patient Records regulations: The Federal rules restrict any use of the information to criminally investigate or prosecute any alcohol or drug abuse patient.[facility]hillIn the event this information is protected by the Federal Confidentiality of Alcohol and Drug Abuse Patient Records regulations: The Federal rules restrict any use of the information to criminally investigate or prosecute any alcohol or drug abuse patient.[facility]hillIn the event this information is protected by the Federal Confidentiality of Alcohol and Drug Abuse Patient Records regulations: The Federal rules restrict any use of the information to criminally investigate or prosecute any alcohol or drug abuse patient.[facility]hillIn the event this information is protected by the Federal Confidentiality of Alcohol and Drug Abuse Patient Records regulations: The Federal rules restrict any use of the information to criminally investigate or prosecute any alcohol or drug abuse patient.[facility]hillIn the event this information is protected by the Federal Confidentiality of Alcohol and Drug Abuse Patient Records regulations: The Federal rules restrict any use of the information to criminally investigate or prosecute any alcohol or drug abuse patient.[facility]hillIn the event this information is protected by the Federal Confidentiality of Alcohol and Drug Abuse Patient Records regulations: The Federal rules restrict any use of the information to criminally investigate or prosecute any alcohol or drug abuse patient.[facility]hillIn the event this information is protected by the Federal Confidentiality of Alcohol and Drug Abuse Patient Records regulations: The Federal rules restrict any use of the information to criminally investigate or prosecute any alcohol or drug abuse patient.[facility]hillIn the event this information is protected by the Federal Confidentiality of Alcohol and Drug Abuse Patient Records regulations: The Federal rules restrict any use of the information to criminally investigate or prosecute any alcohol or drug abuse patient.[facility]hillIn the event this information is protected by the Federal Confidentiality of Alcohol and Drug Abuse Patient Records regulations: The Federal rules restrict any use of the information to criminally investigate or prosecute any alcohol or drug abuse patient.[facility]hillIn the event this information is protected by the Federal Confidentiality of Alcohol and Drug Abuse Patient Records regulations: The Federal rules restrict any use of the information to criminally investigate or prosecute any alcohol or drug abuse patient.[facility]hillIn the event this information is protected by the Federal Confidentiality of Alcohol and Drug Abuse Patient Records regulations: The Federal rules restrict any use of the information to criminally investigate or prosecute any alcohol or drug abuse patient.[facility]hillIn the event this information is protected by the Federal Confidentiality of Alcohol and Drug Abuse Patient Records regulations: The Federal rules restrict any use of the information to criminally investigate or prosecute any alcohol or drug abuse patient.[facility]hillIn the event this information is protected by the Federal Confidentiality of Alcohol and Drug Abuse Patient Records regulations: The Federal rules restrict any use of the information to criminally investigate or prosecute any alcohol or drug abuse patient.[facility]hillIn the event this information is protected by the Federal Confidentiality of Alcohol and Drug Abuse Patient Records regulations: The Federal rules restrict any use of the information to criminally investigate or prosecute any alcohol or drug abuse patient.[facility]hillIn the event this information is protected by the Federal Confidentiality of Alcohol and Drug Abuse Patient Records regulations: The Federal rules restrict any use of the information to criminally investigate or prosecute any alcohol or drug abuse patient.[facility]hillIn the event this information is protected by the Federal Confidentiality of Alcohol and Drug Abuse Patient Records regulations: The Federal rules restrict any use of the information to criminally investigate or prosecute any alcohol or drug abuse patient.[facility]hillIn the event this information is protected by the Federal Confidentiality of Alcohol and Drug Abuse Patient Records regulations: The Federal rules restrict any use of the information to criminally investigate or prosecute any alcohol or drug abuse patient.[facility]hillIn the event this information is protected by the Federal Confidentiality of Alcohol and Drug Abuse Patient Records regulations: The Federal rules restrict any use of the information to criminally investigate or prosecute any alcohol or drug abuse patient.[facility]hillIn the event this information is protected by the Federal Confidentiality of Alcohol and Drug Abuse Patient Records regulations: The Federal rules restrict any use of the information to criminally investigate or prosecute any alcohol or drug abuse patient.[facility]hillIn the event this information is protected by the Federal Confidentiality of Alcohol and Drug Abuse Patient Records regulations: The Federal rules restrict any use of the information to criminally investigate or prosecute any alcohol or drug abuse patient.[facility]hillIn the event this information is protected by the Federal Confidentiality of Alcohol and Drug Abuse Patient Records regulations: The Federal rules restrict any use of the information to criminally investigate or prosecute any alcohol or drug abuse patient.[facility]hillIn the event this information is protected by the Federal Confidentiality of Alcohol and Drug Abuse Patient Records regulations: The Federal rules restrict any use of the information to criminally investigate or prosecute any alcohol or drug abuse patient.[facility]hillIn the event this information is protected by the Federal Confidentiality of Alcohol and Drug Abuse Patient Records regulations: The Federal rules restrict any use of the information to criminally investigate or prosecute any alcohol or drug abuse patient.[facility]hillIn the event this information is protected by the Federal Confidentiality of Alcohol and Drug Abuse Patient Records regulations: The Federal rules restrict any use of the information to criminally investigate or prosecute any alcohol or drug abuse patient.[facility]hillIn the event this information is protected by the Federal Confidentiality of Alcohol and Drug Abuse Patient Records regulations: The Federal rules restrict any use of the information to criminally investigate or prosecute any alcohol or drug abuse patient.[facility]hillIn the event this information is protected by the Federal Confidentiality of Alcohol and Drug Abuse Patient Records regulations: The Federal rules restrict any use of the information to criminally investigate or prosecute any alcohol or drug abuse patient.[facility]hillIn the event this information is protected by the Federal Confidentiality of Alcohol and Drug Abuse Patient Records regulations: The Federal rules restrict any use of the information to criminally investigate or prosecute any alcohol or drug abuse patient.[facility]hillIn the event this information is protected by the Federal Confidentiality of Alcohol and Drug Abuse Patient Records regulations: The Federal rules restrict any use of the information to criminally investigate or prosecute any alcohol or drug abuse patient.[facility]hillIn the event this information is protected by the Federal Confidentiality of Alcohol and Drug Abuse Patient Records regulations: The Federal rules restrict any use of the information to criminally investigate or prosecute any alcohol or drug abuse patient.[facility]hillIn the event this information is protected by the Federal Confidentiality of Alcohol and Drug Abuse Patient Records regulations: The Federal rules restrict any use of the information to criminally investigate or prosecute any alcohol or drug abuse patient.[facility]hillIn the event this information is protected by the Federal Confidentiality of Alcohol and Drug Abuse Patient Records regulations: The Federal rules restrict any use of the information to criminally investigate or prosecute any alcohol or drug abuse patient.[facility]hillIn the event this information is protected by the Federal Confidentiality of Alcohol and Drug Abuse Patient Records regulations: The Federal rules restrict any use of the information to criminally investigate or prosecute any alcohol or drug abuse patient.[facility]hillIn the event this information is protected by the Federal Confidentiality of Alcohol and Drug Abuse Patient Records regulations: The Federal rules restrict any use of the information to criminally investigate or prosecute any alcohol or drug abuse patient.[facility]hillIn the event this information is protected by the Federal Confidentiality of Alcohol and Drug Abuse Patient Records regulations: The Federal rules restrict any use of the information to criminally investigate or prosecute any alcohol or drug abuse patient.[facility]hillIn the event this information is protected by the Federal Confidentiality of Alcohol and Drug Abuse Patient Records regulations: The Federal rules restrict any use of the information to criminally investigate or prosecute any alcohol or drug abuse patient.[facility]hillIn the event this information is protected by the Federal Confidentiality of Alcohol and Drug Abuse Patient Records regulations: The Federal rules restrict any use of the information to criminally investigate or prosecute any alcohol or drug abuse patient.[facility]hillIn the event this information is protected by the Federal Confidentiality of Alcohol and Drug Abuse Patient Records regulations: The Federal rules restrict any use of the information to criminally investigate or prosecute any alcohol or drug abuse patient.[facility] ClinicIn the event this information is protected by the Federal Confidentiality of Alcohol and Drug Abuse Patient Records regulations: The Federal rules restrict any use of the information to criminally investigate or prosecute any alcohol or drug abuse patient.[facility]In the event this information is protected by the Federal Confidentiality of Alcohol and Drug Abuse Patient Records regulations: The Federal rules restrict any use of the information to criminally investigate or prosecute any alcohol or drug abuse patient.[facility]hillIn the event this information is protected by the Federal Confidentiality of Alcohol and Drug Abuse Patient Records regulations: The Federal rules restrict any use of the information to criminally investigate or prosecute any alcohol or drug abuse patient.[facility]hillIn the event this information is protected by the Federal Confidentiality of Alcohol and Drug Abuse Patient Records regulations: The Federal rules restrict any use of the information to criminally investigate or prosecute any alcohol or drug abuse patient.[facility]hillIn the event this information is protected by the Federal Confidentiality of Alcohol and Drug Abuse Patient Records regulations: The Federal rules restrict any use of the information to criminally investigate or prosecute any alcohol or drug abuse patient.[facility]hillIn the event this information is protected by the Federal Confidentiality of Alcohol and Drug Abuse Patient Records regulations: The Federal rules restrict any use of the information to criminally investigate or prosecute any alcohol or drug abuse patient.[facility]hillIn the event this information is protected by the Federal Confidentiality of Alcohol and Drug Abuse Patient Records regulations: The Federal rules restrict any use of the information to criminally investigate or prosecute any alcohol or drug abuse patient.[facility]hillIn the event this information is protected by the Federal Confidentiality of Alcohol and Drug Abuse Patient Records regulations: The Federal rules restrict any use of the information to criminally investigate or prosecute any alcohol or drug abuse patient.[facility]hillIn the event this information is protected by the Federal Confidentiality of Alcohol and Drug Abuse Patient Records regulations: The Federal rules restrict any use of the information to criminally investigate or prosecute any alcohol or drug abuse patient.[facility]hillIn the event this information is protected by the Federal Confidentiality of Alcohol and Drug Abuse Patient Records regulations: The Federal rules restrict any use of the information to criminally investigate or prosecute any alcohol or drug abuse patient.[facility]hillIn the event this information is protected by the Federal Confidentiality of Alcohol and Drug Abuse Patient Records regulations: The Federal rules restrict any use of the information to criminally investigate or prosecute any alcohol or drug abuse patient.[facility]In the event this information is protected by the Federal Confidentiality of Alcohol and Drug Abuse Patient Records regulations: The Federal rules restrict any use of the information to criminally investigate or prosecute any alcohol or drug abuse patient.[facility]In the event this information is protected by the Federal Confidentiality of Alcohol and Drug Abuse Patient Records regulations: The Federal rules restrict any use of the information to criminally investigate or prosecute any alcohol or drug abuse patient.[facility]hillIn the event this information is protected by the Federal Confidentiality of Alcohol and Drug Abuse Patient Records regulations: The Federal rules restrict any use of the information to criminally investigate or prosecute any alcohol or drug abuse patient.[facility]hillIn the event this information is protected by the Federal Confidentiality of Alcohol and Drug Abuse Patient Records regulations: The Federal rules restrict any use of the information to criminally investigate or prosecute any alcohol or drug abuse patient.[facility]hillIn the event this information is protected by the Federal Confidentiality of Alcohol and Drug Abuse Patient Records regulations: The Federal rules restrict any use of the information to criminally investigate or prosecute any alcohol or drug abuse patient.[facility] the event this information is protected by the Federal Confidentiality of Alcohol and Drug Abuse Patient Records regulations: The Federal rules restrict any use of the information to criminally investigate or prosecute any alcohol or drug abuse patient.[facility] [place]In the event this information is protected by the Federal Confidentiality of Alcohol and Drug Abuse Patient Records regulations: The Federal rules restrict any use of the information to criminally investigate or prosecute any alcohol or drug abuse patient.[facility] [place]In the event this information is protected by the Federal Confidentiality of Alcohol and Drug Abuse Patient Records regulations: The Federal rules restrict any use of the information to criminally investigate or prosecute any alcohol or drug abuse patient.[facility] [place]In the event this information is protected by the Federal Confidentiality of Alcohol and Drug Abuse Patient Records regulations: The Federal rules restrict any use of the information to criminally investigate or prosecute any alcohol or drug abuse patient.[facility] [place]In the event this information is protected by the Federal Confidentiality of Alcohol and Drug Abuse Patient Records regulations: The Federal rules restrict any use of the information to criminally investigate or prosecute any alcohol or drug abuse patient.[facility] [place]In the event this information is protected by the Federal Confidentiality of Alcohol and Drug Abuse Patient Records regulations: The Federal rules restrict any use of the information to criminally investigate or prosecute any alcohol or drug abuse patient.[facility] [place]In the event this information is protected by the Federal Confidentiality of Alcohol and Drug Abuse Patient Records regulations: The Federal rules restrict any use of the information to criminally investigate or prosecute any alcohol or drug abuse patient.[facility] [place]In the event this information is protected by the Federal Confidentiality of Alcohol and Drug Abuse Patient Records regulations: The Federal rules restrict any use of the information to criminally investigate or prosecute any alcohol or drug abuse patient.[facility] [place]In the event this information is protected by the Federal Confidentiality of Alcohol and Drug Abuse Patient Records regulations: The Federal rules restrict any use of the information to criminally investigate or prosecute any alcohol or drug abuse patient.[facility] [place]In the event this information is protected by the Federal Confidentiality of Alcohol and Drug Abuse Patient Records regulations: The Federal rules restrict any use of the information to criminally investigate or prosecute any alcohol or drug abuse patient.[facility] [place]In the event this information is protected by the Federal Confidentiality of Alcohol and Drug Abuse Patient Records regulations: The Federal rules restrict any use of the information to criminally investigate or prosecute any alcohol or drug abuse patient.[facility] [place]In the event this information is protected by the Federal Confidentiality of Alcohol and Drug Abuse Patient Records regulations: The Federal rules restrict any use of the information to criminally investigate or prosecute any alcohol or drug abuse patient.[facility] [place]In the event this information is protected by the Federal Confidentiality of Alcohol and Drug Abuse Patient Records regulations: The Federal rules restrict any use of the information to criminally investigate or prosecute any alcohol or drug abuse patient.[facility] [place]In the event this information is protected by the Federal Confidentiality of Alcohol and Drug Abuse Patient Records regulations: The Federal rules restrict any use of the information to criminally investigate or prosecute any alcohol or drug abuse patient.[facility] [place]In the event this information is protected by the Federal Confidentiality of Alcohol and Drug Abuse Patient Records regulations: The Federal rules restrict any use of the information to criminally investigate or prosecute any alcohol or drug abuse patient.[facility] [place]In the event this information is protected by the Federal Confidentiality of Alcohol and Drug Abuse Patient Records regulations: The Federal rules restrict any use of the information to criminally investigate or prosecute any alcohol or drug abuse patient.[facility] [place]In the event this information is protected by the Federal Confidentiality of Alcohol and Drug Abuse Patient Records regulations: The Federal rules restrict any use of the information to criminally investigate or prosecute any alcohol or drug abuse patient.[facility] [place]In the event this information is protected by the Federal Confidentiality of Alcohol and Drug Abuse Patient Records regulations: The Federal rules restrict any use of the information to criminally investigate or prosecute any alcohol or drug abuse patient.[facility] [place]In the event this information is protected by the Federal Confidentiality of Alcohol and Drug Abuse Patient Records regulations: The Federal rules restrict any use of the information to criminally investigate or prosecute any alcohol or drug abuse patient.[facility] [place]In the event this information is protected by the Federal Confidentiality of Alcohol and Drug Abuse Patient Records regulations: The Federal rules restrict any use of the information to criminally investigate or prosecute any alcohol or drug abuse patient.[facility] [place]In the event this information is protected by the Federal Confidentiality of Alcohol and Drug Abuse Patient Records regulations: The Federal rules restrict any use of the information to criminally investigate or prosecute any alcohol or drug abuse patient.[facility] [place]In the event this information is protected by the Federal Confidentiality of Alcohol and Drug Abuse Patient Records regulations: The Federal rules restrict any use of the information to criminally investigate or prosecute any alcohol or drug abuse patient.[facility] [place]In the event this information is protected by the Federal Confidentiality of Alcohol and Drug Abuse Patient Records regulations: The Federal rules restrict any use of the information to criminally investigate or prosecute any alcohol or drug abuse patient.[facility] [place]In the event this information is protected by the Federal Confidentiality of Alcohol and Drug Abuse Patient Records regulations: The Federal rules restrict any use of the information to criminally investigate or prosecute any alcohol or drug abuse patient.[facility] [place]In the event this information is protected by the Federal Confidentiality of Alcohol and Drug Abuse Patient Records regulations: The Federal rules restrict any use of the information to criminally investigate or prosecute any alcohol or drug abuse patient.[facility] [place]In the event this information is protected by the Federal Confidentiality of Alcohol and Drug Abuse Patient Records regulations: The Federal rules restrict any use of the information to criminally investigate or prosecute any alcohol or drug abuse patient.[facility] [place]In the event this information is protected by the Federal Confidentiality of Alcohol and Drug Abuse Patient Records regulations: The Federal rules restrict any use of the information to criminally investigate or prosecute any alcohol or drug abuse patient.[facility] [place]In the event this information is protected by the Federal Confidentiality of Alcohol and Drug Abuse Patient Records regulations: The Federal rules restrict any use of the information to criminally investigate or prosecute any alcohol or drug abuse patient.[facility] [place]In the event this information is protected by the Federal Confidentiality of Alcohol and Drug Abuse Patient Records regulations: The Federal rules restrict any use of the information to criminally investigate or prosecute any alcohol or drug abuse patient.[facility] [place]In the event this information is protected by the Federal Confidentiality of Alcohol and Drug Abuse Patient Records regulations: The Federal rules restrict any use of the information to criminally investigate or prosecute any alcohol or drug abuse patient.[facility] [place]In the event this information is protected by the Federal Confidentiality of Alcohol and Drug Abuse Patient Records regulations: The Federal rules restrict any use of the information to criminally investigate or prosecute any alcohol or drug abuse patient.[facility] [place]In the event this information is protected by the Federal Confidentiality of Alcohol and Drug Abuse Patient Records regulations: The Federal rules restrict any use of the information to criminally investigate or prosecute any alcohol or drug abuse patient.[facility] [place]In the event this information is protected by the Federal Confidentiality of Alcohol and Drug Abuse Patient Records regulations: The Federal rules restrict any use of the information to criminally investigate or prosecute any alcohol or drug abuse patient.[facility] [place]In the event this information is protected by the Federal Confidentiality of Alcohol and Drug Abuse Patient Records regulations: The Federal rules restrict any use of the information to criminally investigate or prosecute any alcohol or drug abuse patient.[facility]In the event this information is protected by the Federal Confidentiality of Alcohol and Drug Abuse Patient Records regulations: The Federal rules restrict any use of the information to criminally investigate or prosecute any alcohol or drug abuse patient.[facility] [place]In the event this information is protected by the Federal Confidentiality of Alcohol and Drug Abuse Patient Records regulations: The Federal rules restrict any use of the information to criminally investigate or prosecute any alcohol or drug abuse patient.[facility] [place]In the event this information is protected by the Federal Confidentiality of Alcohol and Drug Abuse Patient Records regulations: The Federal rules restrict any use of the information to criminally investigate or prosecute any alcohol or drug abuse patient.[facility] [place]In the event this information is protected by the Federal Confidentiality of Alcohol and Drug Abuse Patient Records regulations: The Federal rules restrict any use of the information to criminally investigate or prosecute any alcohol or drug abuse patient.[facility] [place]In the event this information is protected by the Federal Confidentiality of Alcohol and Drug Abuse Patient Records regulations: The Federal rules restrict any use of the information to criminally investigate or prosecute any alcohol or drug abuse patient.[facility] [place]In the event this information is protected by the Federal Confidentiality of Alcohol and Drug Abuse Patient Records regulations: The Federal rules restrict any use of the information to criminally investigate or prosecute any alcohol or drug abuse patient.[facility] [place]In the event this information is protected by the Federal Confidentiality of Alcohol and Drug Abuse Patient Records regulations: The Federal rules restrict any use of the information to criminally investigate or prosecute any alcohol or drug abuse patient.[facility] [place]In the event this information is protected by the Federal Confidentiality of Alcohol and Drug Abuse Patient Records regulations: The Federal rules restrict any use of the information to criminally investigate or prosecute any alcohol or drug abuse patient.[facility] [place]In the event this information is protected by the Federal Confidentiality of Alcohol and Drug Abuse Patient Records regulations: The Federal rules restrict any use of the information to criminally investigate or prosecute any alcohol or drug abuse patient.[facility] [place]In the event this information is protected by the Federal Confidentiality of Alcohol and Drug Abuse Patient Records regulations: The Federal rules restrict any use of the information to criminally investigate or prosecute any alcohol or drug abuse patient.[facility] [place]In the event this information is protected by the Federal Confidentiality of Alcohol and Drug Abuse Patient Records regulations: The Federal rules restrict any use of the information to criminally investigate or prosecute any alcohol or drug abuse patient.[facility] [place]In the event this information is protected by the Federal Confidentiality of Alcohol and Drug Abuse Patient Records regulations: The Federal rules restrict any use of the information to criminally investigate or prosecute any alcohol or drug abuse patient.[facility] [place]In the event this information is protected by the Federal Confidentiality of Alcohol and Drug Abuse Patient Records regulations: The Federal rules restrict any use of the information to criminally investigate or prosecute any alcohol or drug abuse patient.[facility] [place]In the event this information is protected by the Federal Confidentiality of Alcohol and Drug Abuse Patient Records regulations: The Federal rules restrict any use of the information to criminally investigate or prosecute any alcohol or drug abuse patient.[facility] [place]In the event this information is protected by the Federal Confidentiality of Alcohol and Drug Abuse Patient Records regulations: The Federal rules restrict any use of the information to criminally investigate or prosecute any alcohol or drug abuse patient.[facility] [place]In the event this information is protected by the Federal Confidentiality of Alcohol and Drug Abuse Patient Records regulations: The Federal rules restrict any use of the information to criminally investigate or prosecute any alcohol or drug abuse patient.[facility] [place]In the event this information is protected by the Federal Confidentiality of Alcohol and Drug Abuse Patient Records regulations: The Federal rules restrict any use of the information to criminally investigate or prosecute any alcohol or drug abuse patient.[facility] [place]In the event this information is protected by the Federal Confidentiality of Alcohol and Drug Abuse Patient Records regulations: The Federal rules restrict any use of the information to criminally investigate or prosecute any alcohol or drug abuse patient.[facility] [place]In the event this information is protected by the Federal Confidentiality of Alcohol and Drug Abuse Patient Records regulations: The Federal rules restrict any use of the information to criminally investigate or prosecute any alcohol or drug abuse patient.[facility] [place]In the event this information is protected by the Federal Confidentiality of Alcohol and Drug Abuse Patient Records regulations: The Federal rules restrict any use of the information to criminally investigate or prosecute any alcohol or drug abuse patient.[facility] [place]In the event this information is protected by the Federal Confidentiality of Alcohol and Drug Abuse Patient Records regulations: The Federal rules restrict any use of the information to criminally investigate or prosecute any alcohol or drug abuse patient.[facility] [place]In the event this information is protected by the Federal Confidentiality of Alcohol and Drug Abuse Patient Records regulations: The Federal rules restrict any use of the information to criminally investigate or prosecute any alcohol or drug abuse patient.[facility] [place]In the event this information is protected by the Federal Confidentiality of Alcohol and Drug Abuse Patient Records regulations: The Federal rules restrict any use of the information to criminally investigate or prosecute any alcohol or drug abuse patient.[facility] [place]In the event this information is protected by the Federal Confidentiality of Alcohol and Drug Abuse Patient Records regulations: The Federal rules restrict any use of the information to criminally investigate or prosecute any alcohol or drug abuse patient.[facility] [place]In the event this information is protected by the Federal Confidentiality of Alcohol and Drug Abuse Patient Records regulations: The Federal rules restrict any use of the information to criminally investigate or prosecute any alcohol or drug abuse patient.[facility] [place]In the event this information is protected by the Federal Confidentiality of Alcohol and Drug Abuse Patient Records regulations: The Federal rules restrict any use of the information to criminally investigate or prosecute any alcohol or drug abuse patient.[facility] [place]In the event this information is protected by the Federal Confidentiality of Alcohol and Drug Abuse Patient Records regulations: The Federal rules restrict any use of the information to criminally investigate or prosecute any alcohol or drug abuse patient.[facility] [place]In the event this information is protected by the Federal Confidentiality of Alcohol and Drug Abuse Patient Records regulations: The Federal rules restrict any use of the information to criminally investigate or prosecute any alcohol or drug abuse patient.[facility] [place]In the event this information is protected by the Federal Confidentiality of Alcohol and Drug Abuse Patient Records regulations: The Federal rules restrict any use of the information to criminally investigate or prosecute any alcohol or drug abuse patient.[facility] [place]In the event this information is protected by the Federal Confidentiality of Alcohol and Drug Abuse Patient Records regulations: The Federal rules restrict any use of the information to criminally investigate or prosecute any alcohol or drug abuse patient.[facility] [place]In the event this information is protected by the Federal Confidentiality of Alcohol and Drug Abuse Patient Records regulations: The Federal rules restrict any use of the information to criminally investigate or prosecute any alcohol or drug abuse patient.[facility] [place]In the event this information is protected by the Federal Confidentiality of Alcohol and Drug Abuse Patient Records regulations: The Federal rules restrict any use of the information to criminally investigate or prosecute any alcohol or drug abuse patient.[facility] [place]In the event this information is protected by the Federal Confidentiality of Alcohol and Drug Abuse Patient Records regulations: The Federal rules restrict any use of the information to criminally investigate or prosecute any alcohol or drug abuse patient.[facility] [place]In the event this information is protected by the Federal Confidentiality of Alcohol and Drug Abuse Patient Records regulations: The Federal rules restrict any use of the information to criminally investigate or prosecute any alcohol or drug abuse patient.[facility] [place]In the event this information is protected by the Federal Confidentiality of Alcohol and Drug Abuse Patient Records regulations: The Federal rules restrict any use of the information to criminally investigate or prosecute any alcohol or drug abuse patient.[facility] [place]In the event this information is protected by the Federal Confidentiality of Alcohol and Drug Abuse Patient Records regulations: The Federal rules restrict any use of the information to criminally investigate or prosecute any alcohol or drug abuse patient.[facility] [place]In the event this information is protected by the Federal Confidentiality of Alcohol and Drug Abuse Patient Records regulations: The Federal rules restrict any use of the information to criminally investigate or prosecute any alcohol or drug abuse patient.[facility] [place]In the event this information is protected by the Federal Confidentiality of Alcohol and Drug Abuse Patient Records regulations: The Federal rules restrict any use of the information to criminally investigate or prosecute any alcohol or drug abuse patient.[facility] [place]In the event this information is protected by the Federal Confidentiality of Alcohol and Drug Abuse Patient Records regulations: The Federal rules restrict any use of the information to criminally investigate or prosecute any alcohol or drug abuse patient.[facility] [place]In the event this information is protected by the Federal Confidentiality of Alcohol and Drug Abuse Patient Records regulations: The Federal rules restrict any use of the information to criminally investigate or prosecute any alcohol or drug abuse patient.[facility] [place]In the event this information is protected by the Federal Confidentiality of Alcohol and Drug Abuse Patient Records regulations: The Federal rules restrict any use of the information to criminally investigate or prosecute any alcohol or drug abuse patient.[facility] [place]In the event this information is protected by the Federal Confidentiality of Alcohol and Drug Abuse Patient Records regulations: The Federal rules restrict any use of the information to criminally investigate or prosecute any alcohol or drug abuse patient.[facility] [place]In the event this information is protected by the Federal Confidentiality of Alcohol and Drug Abuse Patient Records regulations: The Federal rules restrict any use of the information to criminally investigate or prosecute any alcohol or drug abuse patient.[facility] [place]In the event this information is protected by the Federal Confidentiality of Alcohol and Drug Abuse Patient Records regulations: The Federal rules restrict any use of the information to criminally investigate or prosecute any alcohol or drug abuse patient.[facility] [place]In the event this information is protected by the Federal Confidentiality of Alcohol and Drug Abuse Patient Records regulations: The Federal rules restrict any use of the information to criminally investigate or prosecute any alcohol or drug abuse patient.[facility] [place]In the event this information is protected by the Federal Confidentiality of Alcohol and Drug Abuse Patient Records regulations: The Federal rules restrict any use of the information to criminally investigate or prosecute any alcohol or drug abuse patient.[facility] [place]In the event this information is protected by the Federal Confidentiality of Alcohol and Drug Abuse Patient Records regulations: The Federal rules restrict any use of the information to criminally investigate or prosecute any alcohol or drug abuse patient.[facility] [place]In the event this information is protected by the Federal Confidentiality of Alcohol and Drug Abuse Patient Records regulations: The Federal rules restrict any use of the information to criminally investigate or prosecute any alcohol or drug abuse patient.[facility] [place]In the event this information is protected by the Federal Confidentiality of Alcohol and Drug Abuse Patient Records regulations: The Federal rules restrict any use of the information to criminally investigate or prosecute any alcohol or drug abuse patient.[facility] [place]In the event this information is protected by the Federal Confidentiality of Alcohol and Drug Abuse Patient Records regulations: The Federal rules restrict any use of the information to criminally investigate or prosecute any alcohol or drug abuse patient.[facility] the event this information is protected by the Federal Confidentiality of Alcohol and Drug Abuse Patient Records regulations: The Federal rules restrict any use of the information to criminally investigate or prosecute any alcohol or drug abuse patient.[facility] [place]In the event this information is protected by the Federal Confidentiality of Alcohol and Drug Abuse Patient Records regulations: The Federal rules restrict any use of the information to criminally investigate or prosecute any alcohol or drug abuse patient.[facility] [place]In the event this information is protected by the Federal Confidentiality of Alcohol and Drug Abuse Patient Records regulations: The Federal rules restrict any use of the information to criminally investigate or prosecute any alcohol or drug abuse patient.[facility] [place]In the event this information is protected by the Federal Confidentiality of Alcohol and Drug Abuse Patient Records regulations: The Federal rules restrict any use of the information to criminally investigate or prosecute any alcohol or drug abuse patient.[facility] [place]In the event this information is protected by the Federal Confidentiality of Alcohol and Drug Abuse Patient Records regulations: The Federal rules restrict any use of the information to criminally investigate or prosecute any alcohol or drug abuse patient.[facility] [place]In the event this information is protected by the Federal Confidentiality of Alcohol and Drug Abuse Patient Records regulations: The Federal rules restrict any use of the information to criminally investigate or prosecute any alcohol or drug abuse patient.[facility] [place]In the event this information is protected by the Federal Confidentiality of Alcohol and Drug Abuse Patient Records regulations: The Federal rules restrict any use of the information to criminally investigate or prosecute any alcohol or drug abuse patient.[facility] [place]In the event this information is protected by the Federal Confidentiality of Alcohol and Drug Abuse Patient Records regulations: The Federal rules restrict any use of the information to criminally investigate or prosecute any alcohol or drug abuse patient.[facility] [place]In the event this information is protected by the Federal Confidentiality of Alcohol and Drug Abuse Patient Records regulations: The Federal rules restrict any use of the information to criminally investigate or prosecute any alcohol or drug abuse patient.[facility] [place]In the event this information is protected by the Federal Confidentiality of Alcohol and Drug Abuse Patient Records regulations: The Federal rules restrict any use of the information to criminally investigate or prosecute any alcohol or drug abuse patient.[facility] [place]In the event this information is protected by the Federal Confidentiality of Alcohol and Drug Abuse Patient Records regulations: The Federal rules restrict any use of the information to criminally investigate or prosecute any alcohol or drug abuse patient.[facility] [place]In the event this information is protected by the Federal Confidentiality of Alcohol and Drug Abuse Patient Records regulations: The Federal rules restrict any use of the information to criminally investigate or prosecute any alcohol or drug abuse patient.[facility] [place]In the event this information is protected by the Federal Confidentiality of Alcohol and Drug Abuse Patient Records regulations: The Federal rules restrict any use of the information to criminally investigate or prosecute any alcohol or drug abuse patient.[facility] [place]In the event this information is protected by the Federal Confidentiality of Alcohol and Drug Abuse Patient Records regulations: The Federal rules restrict any use of the information to criminally investigate or prosecute any alcohol or drug abuse patient.[facility] [place]In the event this information is protected by the Federal Confidentiality of Alcohol and Drug Abuse Patient Records regulations: The Federal rules restrict any use of the information to criminally investigate or prosecute any alcohol or drug abuse patient.[facility] [place]In the event this information is protected by the Federal Confidentiality of Alcohol and Drug Abuse Patient Records regulations: The Federal rules restrict any use of the information to criminally investigate or prosecute any alcohol or drug abuse patient.[facility] [place]In the event this information is protected by the Federal Confidentiality of Alcohol and Drug Abuse Patient Records regulations: The Federal rules restrict any use of the information to criminally investigate or prosecute any alcohol or drug abuse patient.[facility] [place]In the event this information is protected by the Federal Confidentiality of Alcohol and Drug Abuse Patient Records regulations: The Federal rules restrict any use of the information to criminally investigate or prosecute any alcohol or drug abuse patient.[facility] [place]In the event this information is protected by the Federal Confidentiality of Alcohol and Drug Abuse Patient Records regulations: The Federal rules restrict any use of the information to criminally investigate or prosecute any alcohol or drug abuse patient.[facility] [place]In the event this information is protected by the Federal Confidentiality of Alcohol and Drug Abuse Patient Records regulations: The Federal rules restrict any use of the information to criminally investigate or prosecute any alcohol or drug abuse patient.[facility] [place]In the event this information is protected by the Federal Confidentiality of Alcohol and Drug Abuse Patient Records regulations: The Federal rules restrict any use of the information to criminally investigate or prosecute any alcohol or drug abuse patient.[facility] [place]In the event this information is protected by the Federal Confidentiality of Alcohol and Drug Abuse Patient Records regulations: The Federal rules restrict any use of the information to criminally investigate or prosecute any alcohol or drug abuse patient.[facility] [place]In the event this information is protected by the Federal Confidentiality of Alcohol and Drug Abuse Patient Records regulations: The Federal rules restrict any use of the information to criminally investigate or prosecute any alcohol or drug abuse patient.[facility] [place]In the event this information is protected by the Federal Confidentiality of Alcohol and Drug Abuse Patient Records regulations: The Federal rules restrict any use of the information to criminally investigate or prosecute any alcohol or drug abuse patient.[facility] [place]In the event this information is protected by the Federal Confidentiality of Alcohol and Drug Abuse Patient Records regulations: The Federal rules restrict any use of the information to criminally investigate or prosecute any alcohol or drug abuse patient.[facility] [place]In the event this information is protected by the Federal Confidentiality of Alcohol and Drug Abuse Patient Records regulations: The Federal rules restrict any use of the information to criminally investigate or prosecute any alcohol or drug abuse patient.[facility] [place]In the event this information is protected by the Federal Confidentiality of Alcohol and Drug Abuse Patient Records regulations: The Federal rules restrict any use of the information to criminally investigate or prosecute any alcohol or drug abuse patient.[facility] [place]In the event this information is protected by the Federal Confidentiality of Alcohol and Drug Abuse Patient Records regulations: The Federal rules restrict any use of the information to criminally investigate or prosecute any alcohol or drug abuse patient.[facility] [place]In the event this information is protected by the Federal Confidentiality of Alcohol and Drug Abuse Patient Records regulations: The Federal rules restrict any use of the information to criminally investigate or prosecute any alcohol or drug abuse patient.[facility] [place]In the event this information is protected by the Federal Confidentiality of Alcohol and Drug Abuse Patient Records regulations: The Federal rules restrict any use of the information to criminally investigate or prosecute any alcohol or drug abuse patient.[facility] [place]In the event this information is protected by the Federal Confidentiality of Alcohol and Drug Abuse Patient Records regulations: The Federal rules restrict any use of the information to criminally investigate or prosecute any alcohol or drug abuse patient.[facility] [place]In the event this information is protected by the Federal Confidentiality of Alcohol and Drug Abuse Patient Records regulations: The Federal rules restrict any use of the information to criminally investigate or prosecute any alcohol or drug abuse patient.[facility] [place]In the event this information is protected by the Federal Confidentiality of Alcohol and Drug Abuse Patient Records regulations: The Federal rules restrict any use of the information to criminally investigate or prosecute any alcohol or drug abuse patient.[facility] [place]In the event this information is protected by the Federal Confidentiality of Alcohol and Drug Abuse Patient Records regulations: The Federal rules restrict any use of the information to criminally investigate or prosecute any alcohol or drug abuse patient.[facility] [place]In the event this information is protected by the Federal Confidentiality of Alcohol and Drug Abuse Patient Records regulations: The Federal rules restrict any use of the information to criminally investigate or prosecute any alcohol or drug abuse patient.[facility] [place]In the event this information is protected by the Federal Confidentiality of Alcohol and Drug Abuse Patient Records regulations: The Federal rules restrict any use of the information to criminally investigate or prosecute any alcohol or drug abuse patient.[facility] [place]In the event this information is protected by the Federal Confidentiality of Alcohol and Drug Abuse Patient Records regulations: The Federal rules restrict any use of the information to criminally investigate or prosecute any alcohol or drug abuse patient.[facility] [place]In the event this information is protected by the Federal Confidentiality of Alcohol and Drug Abuse Patient Records regulations: The Federal rules restrict any use of the information to criminally investigate or prosecute any alcohol or drug abuse patient.[facility] [place]In the event this information is protected by the Federal Confidentiality of Alcohol and Drug Abuse Patient Records regulations: The Federal rules restrict any use of the information to criminally investigate or prosecute any alcohol or drug abuse patient.[facility] [place]In the event this information is protected by the Federal Confidentiality of Alcohol and Drug Abuse Patient Records regulations: The Federal rules restrict any use of the information to criminally investigate or prosecute any alcohol or drug abuse patient.[facility] [place]In the event this information is protected by the Federal Confidentiality of Alcohol and Drug Abuse Patient Records regulations: The Federal rules restrict any use of the information to criminally investigate or prosecute any alcohol or drug abuse patient.[facility] [place]In the event this information is protected by the Federal Confidentiality of Alcohol and Drug Abuse Patient Records regulations: The Federal rules restrict any use of the information to criminally investigate or prosecute any alcohol or drug abuse patient.[facility] [place]In the event this information is protected by the Federal Confidentiality of Alcohol and Drug Abuse Patient Records regulations: The Federal rules restrict any use of the information to criminally investigate or prosecute any alcohol or drug abuse patient.[facility] [place]In the event this information is protected by the Federal Confidentiality of Alcohol and Drug Abuse Patient Records regulations: The Federal rules restrict any use of the information to criminally investigate or prosecute any alcohol or drug abuse patient.[facility] [place]In the event this information is protected by the Federal Confidentiality of Alcohol and Drug Abuse Patient Records regulations: The Federal rules restrict any use of the information to criminally investigate or prosecute any alcohol or drug abuse patient.[facility] [place]In the event this information is protected by the Federal Confidentiality of Alcohol and Drug Abuse Patient Records regulations: The Federal rules restrict any use of the information to criminally investigate or prosecute any alcohol or drug abuse patient.[facility] [place]In the event this information is protected by the Federal Confidentiality of Alcohol and Drug Abuse Patient Records regulations: The Federal rules restrict any use of the information to criminally investigate or prosecute any alcohol or drug abuse patient.[facility] [place]In the event this information is protected by the Federal Confidentiality of Alcohol and Drug Abuse Patient Records regulations: The Federal rules restrict any use of the information to criminally investigate or prosecute any alcohol or drug abuse patient.[facility] [place]In the event this information is protected by the Federal Confidentiality of Alcohol and Drug Abuse Patient Records regulations: The Federal rules restrict any use of the information to criminally investigate or prosecute any alcohol or drug abuse patient.[facility] [place]In the event this information is protected by the Federal Confidentiality of Alcohol and Drug Abuse Patient Records regulations: The Federal rules restrict any use of the information to criminally investigate or prosecute any alcohol or drug abuse patient.[facility]In the event this information is protected by the Federal Confidentiality of Alcohol and Drug Abuse Patient Records regulations: The Federal rules restrict any use of the information to criminally investigate or prosecute any alcohol or drug abuse patient.[facility] [place]In the event this information is protected by the Federal Confidentiality of Alcohol and Drug Abuse Patient Records regulations: The Federal rules restrict any use of the information to criminally investigate or prosecute any alcohol or drug abuse patient.[facility] [place]In the event this information is protected by the Federal Confidentiality of Alcohol and Drug Abuse Patient Records regulations: The Federal rules restrict any use of the information to criminally investigate or prosecute any alcohol or drug abuse patient.[facility] [place]In the event this information is protected by the Federal Confidentiality of Alcohol and Drug Abuse Patient Records regulations: The Federal rules restrict any use of the information to criminally investigate or prosecute any alcohol or drug abuse patient.[facility] [place]In the event this information is protected by the Federal Confidentiality of Alcohol and Drug Abuse Patient Records regulations: The Federal rules restrict any use of the information to criminally investigate or prosecute any alcohol or drug abuse patient.[facility] [place]In the event this information is protected by the Federal Confidentiality of Alcohol and Drug Abuse Patient Records regulations: The Federal rules restrict any use of the information to criminally investigate or prosecute any alcohol or drug abuse patient.[facility] [place]In the event this information is protected by the Federal Confidentiality of Alcohol and Drug Abuse Patient Records regulations: The Federal rules restrict any use of the information to criminally investigate or prosecute any alcohol or drug abuse patient.[facility] [place]In the event this information is protected by the Federal Confidentiality of Alcohol and Drug Abuse Patient Records regulations: The Federal rules restrict any use of the information to criminally investigate or prosecute any alcohol or drug abuse patient.[facility] [place]In the event this information is protected by the Federal Confidentiality of Alcohol and Drug Abuse Patient Records regulations: The Federal rules restrict any use of the information to criminally investigate or prosecute any alcohol or drug abuse patient.[facility] [place]In the event this information is protected by the Federal Confidentiality of Alcohol and Drug Abuse Patient Records regulations: The Federal rules restrict any use of the information to criminally investigate or prosecute any alcohol or drug abuse patient.[facility] [place]In the event this information is protected by the Federal Confidentiality of Alcohol and Drug Abuse Patient Records regulations: The Federal rules restrict any use of the information to criminally investigate or prosecute any alcohol or drug abuse patient.[facility] [place]In the event this information is protected by the Federal Confidentiality of Alcohol and Drug Abuse Patient Records regulations: The Federal rules restrict any use of the information to criminally investigate or prosecute any alcohol or drug abuse patient.[facility] [place]In the event this information is protected by the Federal Confidentiality of Alcohol and Drug Abuse Patient Records regulations: The Federal rules restrict any use of the information to criminally investigate or prosecute any alcohol or drug abuse patient.[facility] [place]In the event this information is protected by the Federal Confidentiality of Alcohol and Drug Abuse Patient Records regulations: The Federal rules restrict any use of the information to criminally investigate or prosecute any alcohol or drug abuse patient.[facility] [place]In the event this information is protected by the Federal Confidentiality of Alcohol and Drug Abuse Patient Records regulations: The Federal rules restrict any use of the information to criminally investigate or prosecute any alcohol or drug abuse patient.[facility] [place]In the event this information is protected by the Federal Confidentiality of Alcohol and Drug Abuse Patient Records regulations: The Federal rules restrict any use of the information to criminally investigate or prosecute any alcohol or drug abuse patient.[facility] [place]In the event this information is protected by the Federal Confidentiality of Alcohol and Drug Abuse Patient Records regulations: The Federal rules restrict any use of the information to criminally investigate or prosecute any alcohol or drug abuse patient.[facility] [place]In the event this information is protected by the Federal Confidentiality of Alcohol and Drug Abuse Patient Records regulations: The Federal rules restrict any use of the information to criminally investigate or prosecute any alcohol or drug abuse patient.[facility] [place]In the event this information is protected by the Federal Confidentiality of Alcohol and Drug Abuse Patient Records regulations: The Federal rules restrict any use of the information to criminally investigate or prosecute any alcohol or drug abuse patient.[facility] [place]In the event this information is protected by the Federal Confidentiality of Alcohol and Drug Abuse Patient Records regulations: The Federal rules restrict any use of the information to criminally investigate or prosecute any alcohol or drug abuse patient.[facility] [place]In the event this information is protected by the Federal Confidentiality of Alcohol and Drug Abuse Patient Records regulations: The Federal rules restrict any use of the information to criminally investigate or prosecute any alcohol or drug abuse patient.[facility] the event this information is protected by the Federal Confidentiality of Alcohol and Drug Abuse Patient Records regulations: The Federal rules restrict any use of the information to criminally investigate or prosecute any alcohol or drug abuse patient.[facility]In the event this information is protected by the Federal Confidentiality of Alcohol and Drug Abuse Patient Records regulations: The Federal rules restrict any use of the information to criminally investigate or prosecute any alcohol or drug abuse patient.[facility]In the event this information is protected by the Federal Confidentiality of Alcohol and Drug Abuse Patient Records regulations: The Federal rules restrict any use of the information to criminally investigate or prosecute any alcohol or drug abuse patient.[facility]In the event this information is protected by the Federal Confidentiality of Alcohol and Drug Abuse Patient Records regulations: The Federal rules restrict any use of the information to criminally investigate or prosecute any alcohol or drug abuse patient.[facility]In the event this information is protected by the Federal Confidentiality of Alcohol and Drug Abuse Patient Records regulations: The Federal rules restrict any use of the information to criminally investigate or prosecute any alcohol or drug abuse patient.[facility]In the event this information is protected by the Federal Confidentiality of Alcohol and Drug Abuse Patient Records regulations: The Federal rules restrict any use of the information to criminally investigate or prosecute any alcohol or drug abuse patient.[facility]In the event this information is protected by the Federal Confidentiality of Alcohol and Drug Abuse Patient Records regulations: The Federal rules restrict any use of the information to criminally investigate or prosecute any alcohol or drug abuse patient.[facility]In the event this information is protected by the Federal Confidentiality of Alcohol and Drug Abuse Patient Records regulations: The Federal rules restrict any use of the information to criminally investigate or prosecute any alcohol or drug abuse patient.[facility]In the event this information is protected by the Federal Confidentiality of Alcohol and Drug Abuse Patient Records regulations: The Federal rules restrict any use of the information to criminally investigate or prosecute any alcohol or drug abuse patient.[facility]In the event this information is protected by the Federal Confidentiality of Alcohol and Drug Abuse Patient Records regulations: The Federal rules restrict any use of the information to criminally investigate or prosecute any alcohol or drug abuse patient.[facility]hillIn the event this information is protected by the Federal Confidentiality of Alcohol and Drug Abuse Patient Records regulations: The Federal rules restrict any use of the information to criminally investigate or prosecute any alcohol or drug abuse patient.[facility]hillIn the event this information is protected by the Federal Confidentiality of Alcohol and Drug Abuse Patient Records regulations: The Federal rules restrict any use of the information to criminally investigate or prosecute any alcohol or drug abuse patient.[facility]hillIn the event this information is protected by the Federal Confidentiality of Alcohol and Drug Abuse Patient Records regulations: The Federal rules restrict any use of the information to criminally investigate or prosecute any alcohol or drug abuse patient.[facility]hillIn the event this information is protected by the Federal Confidentiality of Alcohol and Drug Abuse Patient Records regulations: The Federal rules restrict any use of the information to criminally investigate or prosecute any alcohol or drug abuse patient.[facility]hillIn the event this information is protected by the Federal Confidentiality of Alcohol and Drug Abuse Patient Records regulations: The Federal rules restrict any use of the information to criminally investigate or prosecute any alcohol or drug abuse patient.[facility]hillIn the event this information is protected by the Federal Confidentiality of Alcohol and Drug Abuse Patient Records regulations: The Federal rules restrict any use of the information to criminally investigate or prosecute any alcohol or drug abuse patient.[facility]hillIn the event this information is protected by the Federal Confidentiality of Alcohol and Drug Abuse Patient Records regulations: The Federal rules restrict any use of the information to criminally investigate or prosecute any alcohol or drug abuse patient.[facility]hillIn the event this information is protected by the Federal Confidentiality of Alcohol and Drug Abuse Patient Records regulations: The Federal rules restrict any use of the information to criminally investigate or prosecute any alcohol or drug abuse patient.[facility] Reason for Visit (unrecogniz ed section and content) Reason Comments PT Eval Specialty Diagnoses / Procedures Referred By Contac t Referred To Contact PHYSICAL THERAPY Diagnoses Physical deconditioning Procedures CONSULT TO PHYSICAL THERAPY PHYSICAL THERAPY EVALUATION HIGH COMPLEX 45 MINS Ernesto, Leighton Chi [address] [address] Referral ID Status Reason Start Date Expiration Date Visits Requested Visits Authorized [id number] Authorized PCP Requested Referral Auto-Generate d Referral 04/14/2023 04/13/2024 99 99 Reason Comments Physical Therapy Specialty Diagnoses / Procedures Referred By Contac t Referred To Contact PHYSICAL THERAPY Diagnoses Physical deconditioning Procedures CONSULT TO PHYSICAL THERAPY PHYSICAL THERAPY EVALUATION HIGH COMPLEX 45 MINS Ulises Ramos, [address] [place] [address] [address] Specialty Diagnoses / Procedures Referred By Contac t Referred To Contact [facility] Diagnoses Physical deconditioning Procedures CONSULT TO PHYSICAL THERAPY PHYSICAL THERAPY EVALUATION HIGH COMPLEX 45 MINS Ulises Ramos, [address] [place] [address] [facility] [address] [place] [address] Referral ID Status Reason Start Date Expiration Date Visits Requested Visits Authorized [id number] Authorized PCP Requested Referral Auto-Generate d Referral 12/19/2022 12/19/2023 99 99 Reason Comments PT Discharge Specialty Diagnoses / Procedures Referred By Contac t Referred To Contact Physical Therapy / PHYSICAL THERAPY Diagnoses Muscular deconditioning [R29.898] Procedures EST RS PT ORTH MSK lUises Ramos, DO [address] [place] [address] Sia Hodge, PT [address] [place] [address] Referral ID Status Reason Start Date Expiration Date V isits Requested Visits Authorized [id number] Authorized 04/14/2022 04/13/2023 20 20 Specialty Diagnoses / Procedures Referred By Contac t Referred To Contact [facility] Diagnoses History of left hip replacement Procedures CONSULT TO PHYSICAL THERAPY PHYSICAL THERAPY EVALUATION HIGH COMPLEX 45 MINS Ulises Ramos, DO [address] [place] [address] [facility] [address] [place] [address] Referral ID Status Reason Start Date Expiration Date V isits Requested Visits Authorized [id number] Authorized 04/14/2021 04/13/2022 20 20 Reason Comments PT Progress Note Reason Onset Date Comments Community Monitoring Outreach 07/11/2021 [facility] D CDM Enrollment Reason Comments Appointment Reschedule appt-Prov ider out of office Reason Comments Renal Cancer Reason Comments Question Reason Comments Forms mon Reason Onset Date Comments Community Monitoring Outreach 07/26/2021 [facility] D Telephonic CDM Outreach Reason Comments Refill Request Reason Comments Initial Consult Initial consult 2341 11 ENT Right ear pain Nasal sore Reason Comments Medication Problem Reason Onset Date Comments Community Monitoring Outreach 08/06/2021 [facility] Telephonic CDM Outreach Reason Comments Forms Mon's Reason Onset Date Comments Community Monitoring Outreach 08/13/2021 [facility] Telephonic CDM Outreach Reason Comments Orders Reason Comments Results Reason Onset Date Comments Community Monitoring Outreach 08/29/2021 [facility] Telephonic CDM Outreach Reason Comments Nurse Triage Call Reason Onset Date Comments ACM RITU RN 09/11/2021 [facility] Reason Comments Follow Up prostatitis follow u p Reason Comments psa results Reason Comments Patient Question Patient wants to kno w if he has an altitude limit he has to stay under? He is traveling and will be flying over 8,000 feet. Reason Onset Date Comments Community Monitoring Outreach 09/25/2021 [facility] Telephonic CDM Outreach Reason Comments Adherence Packaging Reason Comments CARD Follow Up 6 Month HTN Referral ID Status Reason Start Date Expiration Date V isits Requested Visits Authorized [id number] Authorized 04/14/2021 04/13/2022 99 99 Reason Onset Date Comments Community Monitoring Outreach 10/10/2021 [facility] Telephonic CDM Outreach Reason Comments Appointment Having blood transfu prasad tomorrow. Can you put in orders. Reason Onset Date Comments Refill Request 10/21/2021 Reason Comments Follow Up blood clot Phlebotomy follow up Diarrhea 7-10 days Medication Request valtrex Reason Comments Medication Question Referral Information sleep medicine Reason Onset Date Comments Community Monitoring Outreach 2021 Reason Onset Date Comments Community Monitoring Outreach 2021 CK D Telephnic CDM Outreach Reason Comments Patient Question Reason Onset Date Comments Community Monitoring Outreach 11/13/2021 [facility] D Telephonic CDM Outreach Reason Comments Diarrhea Since October Reason Comments Referral - Liver Txp Referral Request Reason Comments anemia due to GI blood loss Reason Onset Date Comments Community Monitoring Outreach 12/19/2021 Reason Comments Results Reason Comments Additional Labs Reason Comments Elevated PSA Reason Comments Patient Question Medication Problem Reason Onset Date Comments Community Monitoring Outreach 02/06/2022 Reason Comments Appointment Reason Comments Orders Referral Information PT Reason Comments Infusion Specialty Diagnoses / Procedures Referred By Contac t Referred To Contact Diagnoses Gastroesophageal reflux disease, unspecified whether esophagitis present Other iron deficiency anemia Iron deficiency anemia due to chronic blood loss Halle Dale MD [address] [facility] [address] [place] [address] Arturo Treat [facility] [address] [place] [address] Referral ID Status Reason Start Date Expiration Date V isits Requested Visits Authorized [id number] Authorized 02/19/2022 05/20/2022 99 99 Reason Onset Date Comments Community Monitoring Outreach 03/14/2022 Specialty Diagnoses / Procedures Referred By Contac t Referred To Contact [facility] Diagnoses Muscular deconditioning Procedures CONSULT TO PHYSICAL THERAPY PHYSICAL THERAPY EVALUATION HIGH COMPLEX 45 MINS Ulises Ramos, [address] [place] [address] [facility] [place] [address] [place] [address] Referral ID Status Reason Start Date Expiration Date Visits Requested Visits Authorized [id number] Authorized PCP Requested Referral Auto-Generate d Referral 02/20/2022 04/13/2022 99 99 Reason Comments Anemia Reason Comments PA for Octerotide-Sandostatin Reason Comments Orders Results Reason Comments Cough Nasal Congestion Reason Onset Date Comments Community Monitoring Outreach 04/18/2022 Reason Comments voicemail Reason Onset Date Comments Community Monitoring Outreach 05/23/2022 Reason Comments PT Progress Note Specialty Diagnoses / Procedures Referred By Contac t Referred To Contact Physical Therapy / PHYSICAL THERAPY Diagnoses Muscular deconditioning [R29.898] Procedures EST RS PT ORTH Ulises Branch, DO [address] [place] [address] Sia Hodge, PT [address] [place] [address] Reason Comments Cough Since April/greeni sh bee sputum Reason Comments New Patient Internal bleeding Reason Onset Date Comments Community Monitoring Outreach 06/24/2022 Reason Comments Cough Greenish-yellow sput um Shortness of Breath With exertion Reason Comments Radiology US F/u US L leg. Edema L leg. Having pain in R leg today - not L Reason Comments Medication Question Repatha directions Reason Comments CARD Follow Up 3 Month NSTEMI Reason Comments COPD Specialty Diagnoses / Procedures Referred By Contac t Referred To Contact [facility] Diagnoses Chronic obstructive pulmonary disease with acute exacerbation (HCC) Procedures SPIROMETRY - BASELINE AND POST DILATOR BRNCDILAT RSPSE SPMTRY PRE&POST-BRNCDILAT ADMN Ulises Ramos, DO [address] [place] [address] [facility] [address] [place] [address] Referral ID Status Reason Start Date Expiration Date V isits Requested Visits Authorized [id number] Closed Auto-Generate d Referral 07/02/2022 08/01/2023 1 1 Reason Comments Care Coordination Reason Comments Loading Shovel Oiler - Other NIKOLAS Phillip Reason Comments Referral Request Reason Comments Consult Reason Comments Rectal Bleeding Specialty Diagnoses / Procedures Referred By Contac t Referred To Contact CT IMAGING Diagnoses Chronic cough Procedures CT CHEST W IVCON DIAGNOSTIC COMPUTED TOMOGRAPHY THORAX W/CONTRAST Ulises Ramos, DO [address] [place] [address] Ct Imaging Referral ID Status Reason Start Date Expiration Date V isits Requested Visits Authorized [id number] Closed Auto-Generate d Referral 07/30/2022 08/29/2023 1 1 Reason Onset Date Comments Community Monitoring Outreach 08/15/2022 Reason Comments Results Patient Update Reason Comments Established Patient Reason Comments Transfusion Reason Onset Date Comments Community Monitoring Outreach 09/16/2022 Reason Comments Appointment Confirmation Reason Comments Procedure Prep instructions Reason Comments Established Patient Reason Comments Follow Up Reason Onset Date Comments Community Monitoring Outreach 10/22/2022 Reason Onset Date Comments Community Monitoring Outreach 10/24/2022 Reason Comments Results labs Reason Comments Patient Update Results, Lab Reason Comments Patient Update Reason Comments Results, Lab Reason Comments Patient Request Reason Comments Fatigue Patient Is Here For F/U Fatigue Abdominal Pain Lower Abd pain, it s tart this morning as per patient Reason Comments Insurance Authorization PROVIGIL Reason Comments Established Patient Reason Comments Appointment Psychology ([facility] ent exam) with Dr Yoselin Dobbs 12/09/22, CT Chest 02/24/23, Follow up OV 03/05. Pt notified Reason Comments Escalation of Care Reason Comments Patient Question Patient Update Shortness of Breath Reason Comments Depression Reason Comments Sleep Apnea Specialty Diagnoses / Procedures Referred By Contac t Referred To Contact Diagnoses Chronic insomnia Procedures CONSULT TO SLEEP MEDICINE - ADULT OFFICE/OUTPATIENT [facility] MDM 60-74 MINUTES Ulises Ramos, [address] [place] [address] Referral ID Status Reason Start Date Expiration Date V isits Requested Visits Authorized [id number] Closed PCP Requested Referral 07/30/2022 07/30/2023 1 1 Reason Comments Returning Patient's Call Reason Comments Home Care Reason Comments Nutrition Counseling Weight Loss Reason Comments Home Care Confirmation Call Reason Onset Date Comments Transition Of Care 01/01/2023 TCM follow-up Reason Comments Symptoms Reason Comments Release Of Medical Records Adult geriatr ics of [facility]ana Reason Comments Appointment Fyi- called patient to schedule his follow up appt. Pt declined and states he is no longer following up with [facility] Reason Onset Date Comments Community Monitoring Outreach 01/15/2023 Reason Comments New Patient Visit Specialty Diagnoses / Procedures Referred By Contac t Referred To Contact Diagnoses Atrial fibrillation, unspecified type (CMS/HCC) Procedures ECG 12 lead (Clinic Performed) Melinda Kraft MD [address] [place] [address] Referral ID Status Reason Start Date Expiration Date V isits Requested Visits Authorized [id number] Pending Review 02/20/2023 02/20/2024 1 1 Reason Onset Date Comments Community Monitoring Outreach 03/12/2023 Reason Comments Aquatic Therapy Reason Onset Date Comments Community Monitoring Outreach 05/27/2023 Reason Onset Date Comments Community Monitoring Outreach 08/11/2023 Reason Onset Date Comments Community Monitoring Outreach 09/17/2023 Reason Comments Earache Possible ear infecti on in right ear, wants incision checked on chest Reason Onset Date Comments Community Monitoring Outreach 10/24/2023 Reason Onset Date Comments Community Monitoring Outreach 12/04/2023 Care Teams (unrecognized sec tion and content) Policy Service Coordinator Relationship Specialty Start Date End Date Ulises Ramos DO [address] [place] [address] PCP - General Family Practice 03/02/19 Policy Service Coordinator Relationship Specialty Start Date End Date Ulises Ramos DO [address] [place] [address] PCP - General Family Practice 03/02/19 Louie Silva, sheet metal duct installer apprenticeRoller Skates Assembler [facility] Practice 07/11/21 Policy Service Coordinator Relationship Specialty Start Date End Date Ulises Ramos DO [address] [place] [address] PCP - General Family Practice 03/02/19 Louie Silva RN Roller Skates Assembler Family Practice 07/11/21 Policy Service Coordinator Relationship Specialty Start Date End Date Ulises Ramos, DO [address] [place] [address] PCP - General Family Practice 03/02/19 Louie Silva, sheet metal duct installer apprenticeRoller Skates Assembler [facility] 07/11/21 Policy Service Coordinator Relationship Specialty Start Date End Date Ulises Ramos, DO [address] [place] [address] PCP - General Family Practice 03/02/19 Louie Silva, sheet metal duct installer apprenticeRoller Skates Assembler [facility] 07/11/21 Policy Service Coordinator Relationship Specialty Start Date End Date Ulises Ramos, DO [address] [place] [address] PCP - General Family Practice 03/02/19 Louie Silva, sheet metal duct installer apprenticeRoller Skates Assembler [facility] 07/11/21 Policy Service Coordinator Relationship Specialty Start Date End Date Ulises Ramos, DO [address] [place] [address] PCP - General Family Practice 03/02/19 Louie Silva, sheet metal duct installer apprenticeRoller Skates Assembler [facility] 07/11/21 Policy Service Coordinator Relationship Specialty Start Date End Date Ulises Ramos, DO [address] [place] [address] PCP - General Family Practice 03/02/19 Louie Silva, sheet metal duct installer apprenticeRoller Skates Assembler [facility] 07/11/21 Policy Service Coordinator Relationship Specialty Start Date End Date Ulises Ramos, DO [address] [place] [address] PCP - General Family Practice 03/02/19 Louie Silva, sheet metal duct installer apprenticeRoller Skates Assembler [facility] 07/11/21 Policy Service Coordinator Relationship Specialty Start Date End Date Ulises Ramos, DO [address] [place] [address] PCP - General Family Practice 03/02/19 Louie Silva, sheet metal duct installer apprenticeRoller Skates Assembler [facility] 07/11/21 Policy Service Coordinator Relationship Specialty Start Date End Date Ulises Ramos, DO [address] [place] [address] PCP - General Family Practice 03/02/19 Louie Silva, sheet metal duct installer apprenticeRoller Skates Assembler [facility] 07/11/21 Policy Service Coordinator Relationship Specialty Start Date End Date Ulises Ramos, DO [address] [place] [address] PCP - General Family Practice 03/02/19 Louie Silva, sheet metal duct installer apprenticeRoller Skates Assembler [facility] 07/11/21 Policy Service Coordinator Relationship Specialty Start Date End Date Ulises Ramos, DO [address] [place] [address] PCP - General Family Practice 03/02/19 Louie Silva, sheet metal duct installer apprenticeRoller Skates Assembler [facility] 07/11/21 Policy Service Coordinator Relationship Specialty Start Date End Date Ulises Ramos, DO [address] [place] [address] PCP - General Family Practice 03/02/19 Louie Silva, sheet metal duct installer apprenticeRoller Skates Assembler [facility] 07/11/21 Policy Service Coordinator Relationship Specialty Start Date End Date Ulises Ramos, DO [address] [place] [address] PCP - General Family Practice 03/02/19 Louie Silva, sheet metal duct installer apprenticeRoller Skates Assembler [facility] 07/11/21 Policy Service Coordinator Relationship Specialty Start Date End Date Ulises Ramos, DO [address] [place] [address] PCP - General Family Practice 03/02/19 Louie Silva, sheet metal duct installer apprenticeRoller Skates Assembler [facility] 07/11/21 Policy Service Coordinator Relationship Specialty Start Date End Date Ulises Ramos, DO [address] [place] [address] PCP - General Family Practice 03/02/19 Louie Silva, sheet metal duct installer apprenticeRoller Skates Assembler [facility] 07/11/21 Policy Service Coordinator Relationship Specialty Start Date End Date Ulises Ramos, DO [address] [place] [address] PCP - General Family Practice 03/02/19 Louie Silva, sheet metal duct installer apprenticeRoller Skates Assembler [facility] 07/11/21 Policy Service Coordinator Relationship Specialty Start Date End Date Ulises Ramos, DO [address] [place] [address] PCP - General Family Practice 03/02/19 Louie Silva, sheet metal duct installer apprenticeRoller Skates Assembler [facility] 07/11/21 Policy Service Coordinator Relationship Specialty Start Date End Date Ulises Ramos, DO [address] [place] [address] PCP - General Family Practice 03/02/19 Louie Silva, sheet metal duct installer apprenticeRoller Skates Assembler [facility] 07/11/21 Policy Service Coordinator Relationship Specialty Start Date End Date Ulises Ramos, DO [address] [place] [address] PCP - General Family Practice 03/02/19 Louie Silva, sheet metal duct installer apprenticeRoller Skates Assembler [facility] 07/11/21 Policy Service Coordinator Relationship Specialty Start Date End Date Ulises Ramos, DO [address] [place] [address] PCP - General Family Medicine 03/02/19 Louie Silva, sheet metal duct installer apprenticeRoller Skates Assembler [facility] 07/11/21 Policy Service Coordinator Relationship Specialty Start Date End Date Ulises Ramos, DO [address] [place] [place] [address] PCP - General Family Medicine 03/02/19 Louie Silva, sheet metal duct installer apprenticeRoller Skates Assembler [facility] 07/11/21 Policy Service Coordinator Relationship Specialty Start Date End Date Ulises Ramos, DO [address] [place] [address] PCP - General Family Medicine 03/02/19 Louie Silva, sheet metal duct installer apprenticeRoller Skates Assembler [facility] 07/11/21 Policy Service Coordinator Relationship Specialty Start Date End Date Ulises Ramos, DO [address] [place] [address] PCP - General Family Medicine 03/02/19 Louie Silva, sheet metal duct installer apprenticeRoller Skates Assembler [facility] 07/11/21 Policy Service Coordinator Relationship Specialty Start Date End Date Ulises Ramos, DO [address] [place] [address] PCP - General Family Medicine 03/02/19 Louie Silva, sheet metal duct installer apprenticeRoller Skates Assembler [facility] 07/11/21 Yuko Raymond, MEHUL Registered Nurse Primary Care 02/08/22 Policy Service Coordinator Relationship Specialty Start Date End Date Ulises Ramos, DO [address] [place] [address] PCP - General Family Medicine 03/02/19 Louie Silva, sheet metal duct installer apprenticeRoller Skates Assembler Family Medicine 07/11/21 Yuko Raymond, RN Registered Nurse Primary Care 02/08/22 Policy Service Coordinator Relationship Specialty Start Date End Date Ulises Ramos, DO [address] [place] [address] PCP - General Family Medicine 03/02/19 oLuie Silva, sheet metal duct installer apprenticeRoller Skates Assembler Family Medicine 07/11/21 Yuko Raymond, MEHUL Registered Nurse Primary Care 02/08/22 Policy Service Coordinator Relationship Specialty Start Date End Date Ulises Ramos, DO [address] [place] [address] PCP - General Family Medicine 03/02/19 Louie Silva, sheet metal duct installer apprenticeRoller Skates Assembler Family [facility] 07/11/21 Yuko Raymond, RN Registered Nurse Primary Care 02/08/22 Policy Service Coordinator Relationship Specialty Start Date End Date Ulises Ramos, DO [address] [place] [address] PCP - General Family Medicine 03/02/19 Wilton Palma, sheet metal duct installer apprenticeRoller Skates Assembler Family Medicine 07/11/21 Yuko Raymond, RN Registered Nurse Primary Care 02/08/22 Policy Service Coordinator Relationship Specialty Start Date End Date Ulises Ramos, DO [address] [place] [address] PCP - General Family Medicine 03/02/19 Wilton Palma, sheet metal duct installer apprenticeRoller Skates Assembler Family [facility] 07/11/21 Yuko Raymond, RN Registered Nurse Primary Care 02/08/22 Policy Service Coordinator Relationship Specialty Start Date End Date Ulises Ramos, DO [address] [place] [address] PCP - General Family Medicine 03/02/19 Wilton Palma, sheet metal duct installer apprenticeRoller Skates Assembler Family Medicine 07/11/21 Yuko Raymond, RN Registered Nurse Primary Care 02/08/22 Policy Service Coordinator Relationship Specialty Start Date End Date Ulises Ramos, DO [address] [place] [address] PCP - General Family Medicine 03/02/19 Wilton Palma, sheet metal duct installer apprenticeRoller Skates Assembler Family [facility] 07/11/21 Yuko Raymond, MEHUL Registered Nurse Primary Care 02/08/22 Policy Service Coordinator Relationship Specialty Start Date End Date Ulises Ramos, DO [address] [place] [address] PCP - General Family Medicine 03/02/19 Wilton Palma, sheet metal duct installer apprenticeRoller Skates Assembler Family [facility] 07/11/21 Yuko Raymond, RN Registered Nurse Primary Care 02/08/22 Policy Service Coordinator Relationship Specialty Start Date End Date Ulises Ramos, DO [address] [place] [address] PCP - General Family Medicine 03/02/19 Wilton Palma, sheet metal duct installer apprenticeRoller Skates Assembler Family Medicine 07/11/21 Yuko Raymond, RN Registered Nurse Primary Care 02/08/22 Policy Service Coordinator Relationship Specialty Start Date End Date Ulises Ramos, DO [address] [place] [address] PCP - General Family Medicine 03/02/19 Wilton Palma, sheet metal duct installer apprenticeRoller Skates Assembler Family Medicine 07/11/21 Yuko Raymond, RN Registered Nurse Primary Care 02/08/22 Policy Service Coordinator Relationship Specialty Start Date End Date Ulises Ramos, DO [address] [place] [address] PCP - General Family Medicine 03/02/19 Wilton Palma, sheet metal duct installer apprenticeRoller Skates Assembler Family Medicine 07/11/21 Yuko Raymond, RN Registered Nurse Primary Care 02/08/22 Policy Service Coordinator Relationship Specialty Start Date End Date Ulises Ramos, DO [address] [place] [address] PCP - General Family Medicine 03/02/19 Wilton Palma, sheet metal duct installer apprenticeRoller Skates Assembler Family [facility] 07/11/21 Yuko Raymond, RN Registered Nurse Primary Care 02/08/22 Policy Service Coordinator Relationship Specialty Start Date End Date Ulises Ramos, DO [address] [place] [address] PCP - General Family Medicine 03/02/19 Wilton Palma, sheet metal duct installer apprenticeRoller Skates Assembler Family [facility] 07/11/21 Yuko Raymond, RN Registered Nurse Primary Care 02/08/22 Policy Service Coordinator Relationship Specialty Start Date End Date Ulises Ramos, DO [address] [place] [address] PCP - General Family Medicine 03/02/19 Wilton Palma, sheet metal duct installer apprenticeRoller Skates Assembler [facility] 07/11/21 Yuko Raymond, RN Registered Nurse Primary Care 02/08/22 Policy Service Coordinator Relationship Specialty Start Date End Date Ulises Ramos, DO [address] [place] [address] PCP - General Family Medicine 03/02/19 Wilton Palma, sheet metal duct installer apprenticeRoller Skates Assembler [facility] 07/11/21 Yuko Raymond, RN Registered Nurse Primary Care 02/08/22 Policy Service Coordinator Relationship Specialty Start Date End Date Ulises Ramos, DO [address] [place] [address] PCP - General Family Medicine 03/02/19 Wilton Palma, sheet metal duct installer apprenticeRoller Skates Assembler Family Medicine 07/11/21 Yuko Raymond, RN Registered Nurse Primary Care 02/08/22 Policy Service Coordinator Relationship Specialty Start Date End Date Ulises Ramos, DO [address] [place] [address] PCP - General Family Medicine 03/02/19 Wilton Palma, sheet metal duct installer apprenticeRoller Skates Assembler Family Medicine 07/11/21 Yuko Raymond, RN Registered Nurse Primary Care 02/08/22 Policy Service Coordinator Relationship Specialty Start Date End Date Ulises Ramos, DO [address] [place] [address] PCP - General Family Medicine 03/02/19 Wilton Palma, sheet metal duct installer apprenticeRoller Skates Assembler Family [facility] 07/11/21 Yuko Raymond, RN Registered Nurse Primary Care 02/08/22 Policy Service Coordinator Relationship Specialty Start Date End Date Ulises Ramos, DO [address] [place] [address] PCP - General Family Medicine 03/02/19 Wilton Palma, sheet metal duct installer apprenticeRoller Skates Assembler Family Medicine 07/11/21 Yuko Raymond, RN Registered Nurse Primary Care 02/08/22 Policy Service Coordinator Relationship Specialty Start Date End Date Ulises Ramos, DO [address] [place] [address] PCP - General Family Medicine 03/02/19 Wilton Palma, sheet metal duct installer apprenticeRoller Skates Assembler Family Medicine 07/11/21 Yuko Raymond, RN Registered Nurse Primary Care 02/08/22 Policy Service Coordinator Relationship Specialty Start Date End Date Ulises Ramos, DO [address] [place] [address] PCP - General Family Medicine 03/02/19 Wilton Palma, sheet metal duct installer apprenticeRoller Skates Assembler Family Medicine 07/11/21 Yuko Raymond, RN Registered Nurse Primary Care 02/08/22 Policy Service Coordinator Relationship Specialty Start Date End Date Ulises Ramos, DO [address] [place] [address] PCP - General Family Medicine 03/02/19 Wilton Palma, sheet metal duct installer apprenticeRoller Skates Assembler Family [facility] 07/11/21 Yuko Raymond, RN Registered Nurse Primary Care 02/08/22 Policy Service Coordinator Relationship Specialty Start Date End Date Ulises Ramos, DO [address] [place] [address] PCP - General Family Medicine 03/02/19 Wilton Palma, sheet metal duct installer apprenticeRoller Skates Assembler Family Medicine 07/11/21 Yuko Raymond, RN Registered Nurse Primary Care 02/08/22 Policy Service Coordinator Relationship Specialty Start Date End Date Ulises Ramos, DO [address] [place] [address] PCP - General Family Medicine 03/02/19 Wilton Palma, sheet metal duct installer apprenticeRoller Skates Assembler [facility] 07/11/21 Yuko Raymond, RN Registered Nurse Primary Care 02/08/22 Policy Service Coordinator Relationship Specialty Start Date End Date Ulises Ramos, DO [address] [place] [address] PCP - General Family Medicine 03/02/19 Wilton Palma, sheet metal duct installer apprenticeRoller Skates Assembler Family [facility] 07/11/21 Yuko Raymond, RN Registered Nurse Primary Care 02/08/22 Policy Service Coordinator Relationship Specialty Start Date End Date Ulises Ramos, DO [address] [place] [address] PCP - General Family Medicine 03/02/19 Wilton Palma, sheet metal duct installer apprenticeRoller Skates Assembler Family Medicine 07/11/21 Yuko Raymond, RN Registered Nurse Primary Care 02/08/22 Policy Service Coordinator Relationship Specialty Start Date End Date Ulises Ramos, DO [address] [place] [address] PCP - General Family Medicine 03/02/19 Wilton Palma, sheet metal duct installer apprenticeRoller Skates Assembler [facility] 07/11/21 Yuko Raymond, RN Registered Nurse Primary Care 02/08/22 Policy Service Coordinator Relationship Specialty Start Date End Date Ulises Ramos, DO [address] [place] [address] PCP - General Family Medicine 03/02/19 Wilton Palma, sheet metal duct installer apprenticeRoller Skates Assembler Family [facility] 07/11/21 Yuko Raymond, RN Registered Nurse Primary Care 02/08/22 Policy Service Coordinator Relationship Specialty Start Date End Date Ulises Ramos, DO [address] [place] [address] PCP - General Family Medicine 03/02/19 Wilton Palma, sheet metal duct installer apprenticeRoller Skates Assembler Family [facility] 07/11/21 Yuko Raymond, RN Registered Nurse Primary Care 02/08/22 Policy Service Coordinator Relationship Specialty Start Date End Date Ulises Ramos, DO [address] [place] [address] PCP - General Family Medicine 03/02/19 Wilton Palma, sheet metal duct installer apprenticeRoller Skates Assembler Family [facility] 07/11/21 Yuko Raymond, RN Registered Nurse Primary Care 02/08/22 Policy Service Coordinator Relationship Specialty Start Date End Date Ulises Ramos, DO [address] [place] [address] PCP - General Family Medicine 03/02/19 Wilton Palma, sheet metal duct installer apprenticeRoller Skates Assembler Family Medicine 07/11/21 Yuko Raymodn, RN Registered Nurse Primary Care 02/08/22 Policy Service Coordinator Relationship Specialty Start Date End Date Ulises Ramos, DO [address] [place] [address] PCP - General Family Medicine 03/02/19 Wilton Palma, sheet metal duct installer apprenticeRoller Skates Assembler [facility] 07/11/21 Yuko Raymond, MEHUL Registered Nurse Primary Care 02/08/22 Policy Service Coordinator Relationship Specialty Start Date End Date Ulises Ramos, [address] [place] [address] PCP - General Family Medicine 03/02/19 Wilton Palma, sheet metal duct installer apprenticeRoller Skates Assembler Family [facility] 07/11/21 Yuko Raymond, MEHUL Registered Nurse Primary Care 02/08/22 Policy Service Coordinator Relationship Specialty Start Date End Date Ulises Ramos, [address] [place] [address] PCP - General Family Medicine 03/02/19 Wilton Palma, sheet metal duct installer apprenticeRoller Skates Assembler Family [facility] 07/11/21 Yuko Raymond, MEHUL Registered Nurse Primary Care 02/08/22 Policy Service Coordinator Relationship Specialty Start Date End Date Ulises Ramos, [address] [place] [address] PCP - General Family Medicine 03/02/19 Wilton Palma, sheet metal duct installer apprenticeRoller Skates Assembler Family [facility] 07/11/21 Yuko Raymond, MEHUL Registered Nurse Primary Care 02/08/22 Policy Service Coordinator Relationship Specialty Start Date End Date Ulises Ramos, [address] [place] [address] PCP - General Family Medicine 03/02/19 Wilton Palma, sheet metal duct installer apprenticeRoller Skates Assembler Family Medicine 07/11/21 Yuko Raymond, RN Registered Nurse Primary Care 02/08/22 Policy Service Coordinator Relationship Specialty Start Date End Date Ulises Ramos, DO [address] [place] [address] PCP - General Family Medicine 03/02/19 Wilton Palma, sheet metal duct installer apprenticeRoller Skates Assembler Family Medicine 07/11/21 Yuko Raymond, RN Registered Nurse Primary Care 02/08/22 Policy Service Coordinator Relationship Specialty Start Date End Date Ulises Ramos, DO [address] [place] [address] PCP - General Family Medicine 03/02/19 Wilton Palma, sheet metal duct installer apprenticeRoller Skates Assembler Family Medicine 07/11/21 Yuko Raymond, RN Registered Nurse Primary Care 02/08/22 Policy Service Coordinator Relationship Specialty Start Date End Date Ulises Ramos, DO [address] [place] [address] PCP - General Family Medicine 03/02/19 Wilton Palma, sheet metal duct installer apprenticeRoller Skates Assembler [facility] 07/11/21 Yuko Raymond, RN Registered Nurse Primary Care 02/08/22 Policy Service Coordinator Relationship Specialty Start Date End Date Ulises Ramos, DO [address] [place] [address] PCP - General Family Medicine 03/02/19 Wilton Palma, sheet metal duct installer apprenticeRoller Skates Assembler Family Medicine 07/11/21 Yuko Raymond, RN Registered Nurse Primary Care 02/08/22 Policy Service Coordinator Relationship Specialty Start Date End Date Ulises Ramos, DO [address] [place] [address] PCP - General Family Medicine 03/02/19 Wilton Palma, sheet metal duct installer apprenticeRoller Skates Assembler [facility] 07/11/21 Yuko Raymond, MEHUL Registered Nurse Primary Care 02/08/22 Policy Service Coordinator Relationship Specialty Start Date End Date Ulises Ramos, DO [address] [place] [address] PCP - General Family Medicine 03/02/19 Wilton Palma, sheet metal duct installer apprenticeRoller Skates Assembler [facility] 07/11/21 Yuko Raymond, RN Registered Nurse Primary Care 02/08/22 Policy Service Coordinator Relationship Specialty Start Date End Date Ulises Ramos, [address] [place] [address] PCP - General [facility] Medicine 03/02/19 Wilton Palma sheet metal duct installer apprenticeRoller Skates Assembler [facility] 07/11/21 Yuko Raymond, RN Registered Nurse Primary Care 02/08/22 Policy Service Coordinator Relationship Specialty Start Date End Date Ulises Ramos, DO [address] [place] [address] PCP - General Family Medicine 03/02/19 Wilton Palma sheet metal duct installer apprenticeRoller Skates Assembler [facility] 07/11/21 Yuko Raymond, RN Registered Nurse Primary Care 02/08/22 Halle Dale MD [address] [address] Hematology/Oncology 11/29/22 Policy Service Coordinator Relationship Specialty Start Date End Date Ulises Ramos, [address] [place] [address] PCP - General Family Medicine 03/02/19 Wilton Palma sheet metal duct installer apprenticeRoller Skates Assembler [facility] 07/11/21 Yuko Raymond, RN Registered Nurse Primary Care 02/08/22 Halle Dale MD [address] [place] [address] Hematology/Oncology 11/29/22 Policy Service Coordinator Relationship Specialty Start Date End Date Ulises Ramos DO [address] [place] [address] PCP - General Family Medicine 03/02/19 Wilton Palma, sheet metal duct installer apprenticeRoller Skates Assembler Family Medicine 07/11/21 Yuko Raymond, MEHUL Registered Nurse Primary Care 02/08/22 Halle Dale MD [address] [place] [address] Hematology/Oncology 11/29/22 Maddie White, sheet metal duct installer apprentice Program Facilitator 12/11/22 01/10/23 Policy Service Coordinator Relationship Specialty Start Date End Date Ulises Ramos DO [address] [place] [address] PCP - General Family Medicine 03/02/19 Wilton Palma sheet metal duct installer apprenticeRoller Skates Assembler Family Medicine 07/11/21 Yuko Raymond, RN Registered Nurse Primary Care 02/08/22 Halle Dale MD [address] [place] [address] Hematology/Oncology 11/29/22 Maddie White RN Primary Care Program Facilitator 12/11/22 01/10/23 Policy Service Coordinator Relationship Specialty Start Date End Date Ulises Ramos DO [address] [place] [address] PCP - General Family Medicine 03/02/19 Wilton Palma, sheet metal duct installer apprenticeRoller Skates Assembler Family Medicine 07/11/21 Yuko Raymond, RN Registered Nurse Primary Care 02/08/22 Halle Dale MD [address] [place] [address] Hematology/Oncology 11/29/22 Maddie White, sheet metal duct installer apprentice Program Facilitator 12/11/22 01/10/23 Policy Service Coordinator Relationship Specialty Start Date End Date Ulises Ramos DO [address] [place] [address] PCP - General Family Medicine 03/02/19 Wilton Palma RN Roller Skates Assembler Family Medicine 07/11/21 Yuko Raymond, RN Registered Nurse Primary Care 02/08/22 Halle Dale MD [address] [address] Hematology/Oncology 11/29/22 Maddie White, sheet metal duct installer apprentice Program Facilitator 12/11/22 01/10/23 Policy Service Coordinator Relationship Specialty Start Date End Date Ulises Ramos DO [address] [place] [address] PCP - General Family Medicine 03/02/19 Wilton Palma RN Roller Skates Assembler Family Medicine 07/11/21 Yuko Raymond, RN Registered Nurse Primary Care 02/08/22 Halle Dale MD [address] [address] Hematology/Oncology 11/29/22 Maddie White, sheet metal duct installer apprentice Program Facilitator 12/11/22 01/10/23 Policy Service Coordinator Relationship Specialty Start Date End Date Ulises Ramos DO [address] [place] [address] PCP - General Family Medicine 03/02/19 Wilton Palma, sheet metal duct installer apprenticeRoller Skates Assembler Family Medicine 07/11/21 Yuko Raymond, RN Registered Nurse Primary Care 02/08/22 Halle Dale MD [address] [place] [address] Hematology/Oncology 11/29/22 Maddie White, sheet metal duct installer apprentice Program Facilitator 12/11/22 01/10/23 Policy Service Coordinator Relationship Specialty Start Date End Date Ulises Ramos DO [address] [place] [address] PCP - General Family Medicine 03/02/19 Wilton Palma sheet metal duct installer apprenticeRoller Skates Assembler Family Medicine 07/11/21 Yuko Raymond, RN Registered Nurse Primary Care 02/08/22 Halle Dale MD [address] [place] [address] Hematology/Oncology 11/29/22 Maddie White, sheet metal duct installer apprentice Program Facilitator 12/11/22 01/10/23 Halle Dale MD [address] [place] [address] Referring Hematology/Oncology 12/26/22 Halle Dale MD [address] [place] [address] Home Care Provider Hematology/Oncology 12/26/22 Policy Service Coordinator Relationship Specialty Start Date End Date Ulises Ramos DO [address] [place] [address] PCP - General Family Medicine 03/02/19 Wilton Palma RN Roller Skates Assembler Family Medicine 07/11/21 Yuko Raymond, RN Registered Nurse Primary Care 02/08/22 Halle Dale MD [address] [place] [address] Hematology/Oncology 11/29/22 Halle Dale MD [address] [place] [address] Referring Hematology/Oncology 12/26/22 Halle Dale MD [address] [place] [address] Home Care Provider Hematology/Oncology 12/26/22 Policy Service Coordinator Relationship Specialty Start Date End Date Ulises Ramos DO [address] [place] [address] PCP - General Family Medicine 03/02/19 Wilton Palma RN Roller Skates Assembler Family Medicine 07/11/21 Yuko Raymond, RN Registered Nurse Primary Care 02/08/22 Halle Dale MD [address] [place] [address] Hematology/Oncology 11/29/22 Halle Dale MD [address] [place] [address] Referring Hematology/Oncology 12/26/22 Halle Dale MD [address] [place] [address] Home Care Provider Hematology/Oncology 12/26/22 Policy Service Coordinator Relationship Specialty Start Date End Date Ulises Rmaos DO [address] [place] [address] PCP - General Family Medicine 03/02/19 Wilton Palma, sheet metal duct installer apprenticeRoller Skates Assembler Family Medicine 07/11/21 Yuko Raymond, RN Registered Nurse Primary Care 02/08/22 Halle Dale MD [address] [place] [address] Hematology/Oncology 11/29/22 Halle Dale MD [address] [place] [address] Referring Hematology/Oncology 12/26/22 Halle Dale MD [address] [place] [address] Home Care Provider Hematology/Oncology 12/26/22 Policy Service Coordinator Relationship Specialty Start Date End Date Ulises Ramos DO [address] [place] [address] PCP - General Family Medicine 03/02/19 Wilton Palma, sheet metal duct installer apprenticeRoller Skates Assembler Family Medicine 07/11/21 Yuko Raymond, RN Registered Nurse Primary Care 02/08/22 Halle Dale MD [address] [place] [address] Hematology/Oncology 11/29/22 Halle Dale MD [address] [place] [address] Referring Hematology/Oncology 12/26/22 Halle Dale MD [address] [place] [address] Home Care Provider Hematology/Oncology 12/26/22 Policy Service Coordinator Relationship Specialty Start Date End Date Ulises Ramos DO [address] [place] [address] PCP - General Family Medicine 03/02/19 Wilton Palma, sheet metal duct installer apprenticeRoller Skates Assembler Family Medicine 07/11/21 Yuko Raymond, RN Registered Nurse Primary Care 02/08/22 Halle Dael MD [address] [place] [address] Hematology/Oncology 11/29/22 Halle Dale MD [address] [place] [address] Referring Hematology/Oncology 12/26/22 Halle Dale MD [address] [place] [address] Home Care Provider Hematology/Oncology 12/26/22 Policy Service Coordinator Relationship Specialty Start Date End Date Ulises Ramos, [address] [place] [address] PCP - General Family Medicine 03/02/19 Wilton Palma, sheet metal duct installer apprenticeRoller Skates Assembler Family Medicine 07/11/21 Yuko Raymond, RN Registered Nurse Primary Care 02/08/22 Halle Dale MD [address] [place] [address] Hematology/Oncology 11/29/22 Halle Dale MD [address] [place] [address] Referring Hematology/Oncology 12/26/22 Halle Dale MD [address] [place] [address] Home Care Provider Hematology/Oncology 12/26/22 Policy Service Coordinator Relationship Specialty Start Date End Date Ulises Ramos DO [address] [place] [address] PCP - General Family Medicine 03/02/19 Wilton Palma, sheet metal duct installer apprenticeRoller Skates Assembler Family Medicine 07/11/21 Yuko Raymond, RN Registered Nurse Primary Care 02/08/22 Halle Dale MD [address] [place] [address] Hematology/Oncology 11/29/22 Halle Dale MD [address] [place] [address] Referring Hematology/Oncology 12/26/22 Halle Dale MD [address] [place] [address] Home Care Provider Hematology/Oncology 12/26/22 Policy Service Coordinator Relationship Specialty Start Date End Date Aleja Uribe MD [address] [facility], [address] [place] [address] PCP - General 08/07/09 Policy Service Coordinator Relationship Specialty Start Date End Date Ulises Ramos DO [address] [place] [address] PCP - General Family Medicine 03/02/19 Wilton Palma, sheet metal duct installer apprenticeRoller Skates Assembler Family Medicine 07/11/21 Yuko Raymond, RN Registered Nurse Primary Care 02/08/22 Halle Dale MD [address] [place] [address] Hematology/Oncology 11/29/22 Halle Dale MD [address] [place] [address] Referring Hematology/Oncology 12/26/22 Halle Dale MD [address] [place] [address] Home Care Provider Hematology/Oncology 12/26/22 Policy Service Coordinator Relationship Specialty Start Date End Date Ulises Ramos DO [address] [place] [phone] PCP - General Family Medicine 03/02/19 Wilton Palma RN Roller Skates Assembler Family Medicine 07/11/21 Yuko Raymond, MEHUL Registered Nurse Primary Care 02/08/22 Halle Dale MD [address] [place] [address] Hematology/Oncology 11/29/22 Halle Dale MD [address] [place] [address] Referring Hematology/Oncology 12/26/22 Halle Dale MD [address] [place] [address] Home Care Provider Hematology/Oncology 12/26/22 Policy Service Coordinator Relationship Specialty Start Date End Date Ulises Ramos DO [address] [place] [phone] PCP - General Family Medicine 03/02/19 Wilton Palma RN Roller Skates Assembler Family Medicine 07/11/21 Yuko Raymond, RN Registered Nurse Primary Care 02/08/22 Halle Dale MD [address] [place] [address] Hematology/Oncology 11/29/22 Halle Dale MD [address] [place] [address] Referring Hematology/Oncology 12/26/22 Halle Dale MD [address] [place] [address] Home Care Provider Hematology/Oncology 12/26/22 Policy Service Coordinator Relationship Specialty Start Date End Date Ulises Ramos DO [address] [place] [address] PCP - General Family Medicine 03/02/19 Wilton Palma, sheet metal duct installer apprenticeRoller Skates Assembler Family Medicine 07/11/21 Yuko Raymond, MEHUL Registered Nurse Primary Care 02/08/22 Halle Dale MD [address] [place] [address] Hematology/Oncology 11/29/22 Halle Dale MD [address] [place] [address] Referring Hematology/Oncology 12/26/22 Halle Dale MD [address] [place] [address] Home Care Provider Hematology/Oncology 12/26/22 Policy Service Coordinator Relationship Specialty Start Date End Date Ulises Ramos DO [address] [place] [phone] PCP - General Family Medicine 03/02/19 Wilton Palma RN Roller Skates Assembler Family Medicine 07/11/21 Yuko Raymond, RN Registered Nurse Primary Care 02/08/22 Halle Dale MD [address] [place] [address] Hematology/Oncology 11/29/22 Halle Dale MD [address] [place] [address] Referring Hematology/Oncology 12/26/22 Halle Dale MD [address] [place] [address] Home Care Provider Hematology/Oncology 12/26/22 Policy Service Coordinator Relationship Specialty Start Date End Date Ulises Ramos DO [address] [place] [phone] PCP - General Family Medicine 03/02/19 Wilton Palma RN Roller Skates Assembler Family Medicine 07/11/21 Yuko Raymond, RN Registered Nurse Primary Care 02/08/22 Halle Dale MD [address] [place] [address] Hematology/Oncology 11/29/22 Halle Dale MD [address] [place] [address] Referring Hematology/Oncology 12/26/22 Halle Dale MD [address] [place] [address] Home Care Provider Hematology/Oncology 12/26/22 Policy Service Coordinator Relationship Specialty Start Date End Date Ulises Ramos DO [address] [place] [phone] PCP - General Family Medicine 03/02/19 Wilton Palma, sheet metal duct installer apprenticeRoller Skates Assembler Family Medicine 07/11/21 Yuko Raymond, RN Registered Nurse Primary Care 02/08/22 Halle Dale MD [address] [place] [address] Hematology/Oncology 11/29/22 Halle Dale MD [address] [place] [address] Referring Hematology/Oncology 12/26/22 Halle Dale MD [address] [place] [address] Home Care Provider Hematology/Oncology 12/26/22 Policy Service Coordinator Relationship Specialty Start Date End Date Sandi Dutton MD [address] [place] [phone] PCP - General 08/19/17 Policy Service Coordinator Relationship Specialty Start Date End Date Ulises Ramos DO [address] [place] [phone] PCP - General Family Medicine 03/02/19 12/04/23 Leighton Orozco Chi [address] [facility] [address] [place] [address] PCP - General Gerontology 12/05/23 Wilton Palma, sheet metal duct installer apprenticeRoller Skates Assembler Family Medicine 07/11/21 12/04/23 Yuko Raymond, RN Registered Nurse Primary Care 02/08/22 Halle Dale MD [address] [place] [address] Hematology/Oncology 11/29/22 Halle Dale MD [address] [place] [address] Referring Hematology/Oncology 12/26/22 Halle Dale MD [address] [place] [address] Home Care Provider Hematology/Oncology 12/26/22 Policy Service Coordinator Relationship Specialty Start Date End Date Leighton Orozco Chi [address] [place] [address] PCP - General Gerontology 12/05/23 Yuko Raymond, RN Registered Nurse Primary Care 02/08/22 Halle Dale MD [address] [place] [address] Hematology/Oncology 11/29/22 Halle Dale MD [address] [place] [address] Referring Hematology/Oncology 12/26/22 Halle Dale MD [address] [place] [address] Home Care Provider Hematology/Oncology 12/26/22 Policy Service Coordinator Relationship Specialty Start Date End Date Leighton Orozco Chi [address] [place] [address] PCP - General Gerontology 12/05/23 Yuko Raymond, RN Registered Nurse Primary Care 02/08/22 Halle Dale MD [address] [place] [address] Hematology/Oncology 11/29/22 Halle Dale MD [address] [place] [address] Referring Hematology/Oncology 12/26/22 Halle Dale MD [address] [place] [address] Home Care Provider Hematology/Oncology 12/26/22 FOR RECORDS PERTAINING TO PATIENTS WHO ARE OR HAVE BEEN ENROLLED IN A CHEMICAL DEPENDENCY/SUBSTANCEABUSE PROGRAM, SOME INFORMATION MAY BE OMITTED. This clinical summary was aggregated from multiple sources. Caution should be exercised in using it in the provision of clinical care. This summary normalizes information from multiple sources, and as a consequence, information in this document may materially change the coding, format and clinical context of patient data. In addition, data may be omitted in some cases. CLINICAL DECISIONS SHOULD BE BASED ON THE PRIMARY CLINICAL RECORDS. [employer] [facility] provides no warranty or guarantee of the accuracy or completeness of information in this document.
[2024-02-03] MEDS: Lactated Ringers 1,000 ML 15 ML IV (06:20)
--- NOTE | 2024-02-03 06:59 | PCM.PRE.AN2 ---
ASA Classification* ASA Classification ASA Classification: 3 Assessment & Plan Anesthesia* Anesthesia Assessment Anesthesia Assessment: Discussed sedation and/or anesthesia options, risks, benefits, and alternatives with patient/parents/legal guardian/POA. Questions invited. The patient/parents/legal guardian/POA seems to understand and agrees to proceed with anesthesia plan. Reviewed the physical assessment, medical history, allergy history and patient home medications list prior to surgery/procedure/anesthetic and documented any changes. Performed airway and anesthesia risk assessments. Anesthesia Type Anesthesia Type: General (see written pre anestesia record for full assessment) Anesthesia Focused Assessment* Temperature: 97.8 F Pulse Rate: 80 Blood Pressure: 107/68 Respiratory Rate: 16 Pulse Ox: 94 Airway Assessment Mouth opens: >3 cm Mallampati Score: II Focused Labs Anesthesia Preop lab: CBC WBC 22.2 K/mm3 (4.4-11.0) H 01/22/24 16:35 RBC 1.98 M/mm3 (4.6-6.2) L 01/22/24 16:35 Hgb 8.9 g/dL (13.0-16.5) L 01/22/24 16:35 Hct 26.6 % (40-54) L 01/22/24 16:35 Plt Count 443 K/mm3 (150-450) 01/22/24 16:35 CHEMISTRY Potassium 4.2 mmol/L (3.5-5.1) 01/22/24 16:35 Sodium 136 mmol/L (136-145) 01/22/24 16:35 Magnesium 1.5 mg/dL (1.6-2.6) L 01/22/24 16:35 Phosphorus 2.5 mg/dL (2.5-4.9) 01/12/24 16:42 BUN 24 mg/dL (7-18) H 01/22/24 16:35 Creatinine 2.01 mg/dL (0.70-1.30) H 01/22/24 16:35 Glucose 108 mg/dL (74-106) H 01/22/24 16:35 POC Glucose 97 mg/dL (74-106) 10/29/23 13:40 TSH 0.616 uIU/mL (0.358-3.740) 01/12/24 10:55 COAG PT 20.5 SECONDS (11.7-14.9) H 01/22/24 16:37 Pre-Assessment Diagnosis/Proposed Procedure Planned Operative Procedure(s): RIGHT FEMORAL ENDARTERECTOMY Anesthesia History Anesthesia History - competitive intelligence manager: Anesthesia History - competitive intelligence manager Hx Hospitalization Yes: MALNUTRITION/PNEUMONIA 01/22/24 14:59 12/2023 Any Problems With Anesthesia No 01/22/24 14:59 Cholinesterase deficiency No 01/22/24 14:59 You/Your Family Experience No 01/22/24 14:59 fever (hyperthermia) with Relationship Recent Exposure to Contagious No 02/03/24 06:20 Disease Does patient have nerve No 01/22/24 14:59 stimulator Patient instructed to have device shut off --Does patient have Pacemaker No 02/03/24 06:20 or ICD? When Was Last Pacemaker Check QUESTION #4 FULL TEXT: You/Your Family Experience fever (hyperthermia) with Anesthesia Last Oral Intake Last Oral intake: Last Oral Intake NPO since 05:00 02/03/24 06:20 Meds taken in AM with sips of Yes 02/03/24 06:20 water? Meds patient instructed to SEE MED REC 02/03/24 06:20 take am of surgery PONV PONV - competitive intelligence manager: PONV - competitive intelligence manager Female No 01/22/24 14:59 HX of Motion Sickness No 01/22/24 14:59 HX of N/V After Surgery No 01/22/24 14:59 Non-Smoker No 01/22/24 14:59 Duration of Surgery greater Yes 01/22/24 14:59 than 60 minutes Number of Risk Factors 1 01/22/24 14:59 PONV Score Low Risk 01/22/24 14:59 Height & Weight Height & Weight: Anesthesia: Height & Weight Height 5 ft 10 in 02/03/24 06:20 Weight: 84 kg 02/03/24 06:20 Body Mass Index (BMI) 26.5 02/03/24 06:20 Respiratory Assessment Respiratory Assessment - competitive intelligence manager: Respiratory Tract Infection Hx - competitive intelligence manager Hx Respiratory Tract Infection No 01/22/24 14:59 STOP Sleep Apnea STOP Sleep Apnea - competitive intelligence manager: STOP Sleep Apnea - competitive intelligence manager Hx Hypertension Yes: CONTROLLED WITH MED 01/22/24 14:59 Hx Sleep Apnea Yes 01/22/24 14:59 CPAP Yes: NON COMPLIANT 01/22/24 14:59 BIPAP No 01/22/24 14:59 Do you snore loudly (louder than talking or can be heard Do you often feel tired/ fatigued/ sleepy during daytime? Has anyone observed you stop breathing during sleep? STOP Results Positive 01/22/24 14:59 QUESTION #5 FULL TEXT : Do you snore loudly (louder than talking or can be heard through closed doors)? Tobacco Use History Tobacco Use History - competitive intelligence manager: Tobacco Use History - competitive intelligence manager Tobacco Use Smoking Status Current some day smoker 01/22/24 14:59 Hx Tobacco Use No 01/22/24 14:59 Years Smoking Packs Smoked per Day Smoking Cessation Date was within the last 15 years Hx Smoking Cessation Date Hx Smoking Cessation No 01/22/24 14:59 Counseling Hematologic Medial History Hematologic Hx - competitive intelligence manager: Hematologic Medical Hx - autobody technician Hx of Blood Transfusion Yes 01/22/24 14:59 Hx of Transfusion in last 3 No 01/22/24 14:59 Months Date of Last Transfusion (if within last 3 months) Ever experience any problems No 01/22/24 14:59 with transfusion(s)? Specify any problems Hx of Preganancy in last 3 N/A 01/22/24 14:59 Months Nurse Filling Out Transfusion NBUCHER 01/22/24 14:59 & Questions: Date: 01/22/24 01/22/24 14:59 Time: 15:03 01/22/24 14:59 Patient unable to answer at this time (ie. confused, unrespo /Reproduction History /Reproductive History - competitive intelligence manager: /Reproductive Hx- competitive intelligence manager Hx Now Gestational Age (in weeks): EDC: Hx Hx Para Hx Section SAB Active Medications Active Medications: Current Medications Generic Name Dose Route Start Last Admin Trade Name Freq PRN Reason Stop Dose Admin Lactated Ringer's 1,000 mls @ 15 mls/hr 02/03/24 06:00 02/03/24 06:20 IV 02/08/24 19:19 15 mls/hr .Q48H FELICITY Administration Protocol PFSH Medical History Loss of hearing Wears glasses History of renal disease Cancer Former smoker Chronic cough Shortness of breath on exertion History of edema History of stress test Cardiology follow-up encounter History of heart attack (~2018) History of echocardiogram Tia filter in place Mastoiditis of right side Recurrent deep vein thrombosis (DVT) Depressive disorder due to another medical condition with depressive features History of pulmonary embolism History of DVT (deep vein thrombosis) Iron deficiency anemia due to chronic blood loss Emphysema lung Dyslipidemia Multiple lipomas History of elevated PSA BPH (benign prostatic hyperplasia) AVM (arteriovenous malformation) of colon Chronic GI bleeding Diverticular disease History of skin cancer Multiple lung nodules Cancer of kidney Essential thrombocythemia Hydrocele Femur fracture (~2020) Pulmonary fibrosis Pulmonary embolism DVT (deep venous thrombosis) Obstructive sleep apnea Coronary artery disease CLL (chronic lymphocytic leukemia) Rhodes esophagus COPD (chronic obstructive pulmonary disease) Home Medications ?Medication ?Instructions ?Recorded ?Last Taken ?Type albuterol sulfate 90 mcg/actuation 1 inh inhalation Q4H PRN shortness 12/26/22 02/03/24 05:00 History aerosol inhaler of breath or wheezing omeprazole 40 mg capsule,delayed 40 mg PO DAILY GERD 12/26/22 02/03/24 05:00 History release zolpidem 5 mg tablet 10 mg PO QHS PRN PRN sleep 12/26/22 02/02/24 21:30 History escitalopram oxalate 5 mg tablet 5 mg PO DAILY Mood 01/30/23 02/03/24 05:00 History (Lexapro) ascorbic acid (vitamin C) 500 mg 500 mg PO DAILY Supplement 02/06/23 02/02/24 21:30 History tablet evolocumab 140 mg/mL subcutaneous 140 mg subcut QMONTH Heart Health 08/19/23 12/27/23 History pen injector (Repathyazan Hennessy) metoprolol tartrate 100 mg tablet 150 mg PO DAILY BP 10/07/23 02/03/24 05:00 History rivaroxaban 20 mg tablet (Xarelto) 10 mg PO DAILY Blood Thinner 10/07/23 01/30/24 History acetaminophen 500 mg tablet 1,000 mg (2 x 500 mg) PO Q6 COPD 11/12/23 02/03/24 05:00 Rx #0 tabs fluticasone fur. 100 mcg-umeclid 1 inh inhalation Q24H COPD 12/17/23 02/02/24 History 62.5 mcg-vilant 25 mcg inhalat.powder (Trelegy Ellipta) hydroxyurea 500 mg capsule 1,500 mg PO DAILY Chemo 12/17/23 02/01/24 History ondansetron HCl 8 mg tablet 8 mg PO Q12H PRN nausea and 01/01/24 02/02/24 08:00 History vomiting magnesium oxide 400 mg (241.3 mg 400 mg PO TID SUPPLEMENT 01/16/24 02/03/24 05:00 History magnesium) tablet ferrous sulfate 325 mg (65 mg 325 mg PO DAILY SUPPLEMENT 01/22/24 02/02/24 21:30 History iron) tablet (Feosol) alprazolam 1 mg tablet 1 mg PO QODAY PRN anxiety 02/03/24 02/03/24 05:00 History calcium carbonate (Calcium 600) 600 mg PO DAILY Supplement 02/03/24 02/02/24 21:30 History cholecalciferol (vitamin D3) 50 50 mcg PO DAILY Nutrition 02/03/24 02/02/24 21:30 History mcg (2,000 unit) capsule (Vitamin D3) colestipol 1 gram tablet 1 g PO BID diarrhea 02/03/24 02/03/24 05:00 History Allergy/AdvReac Type Severity Reaction Status Date / Time Penicillins Allergy PT UNSURE Verified 02/03/24 06:22 OF REACTION doxycycline AdvReac Unknown Upset Verified 02/03/24 06:22 Stomach Family History Father Myocardial infarction Mother Colon cancer Surgical History (Updated 01/22/24 @ 15:34 by Rose Childress) History of cardiac catheterization (~2018) History of heart artery stent (~2018) History of hernia surgery (~2021) H/O kidney removal (~2017) History of bowel resection Hx of tonsillectomy Social History household members: none Smoking Status: Current some day smoker tobacco type: cigarettes alcohol intake: never substance use type: does not use, former substance user and other details: marijuana Review of Systems (Anesthesia) ROS Narrative System reviewed and no additional complaints, except as documented.
--- NOTE | 2024-02-03 07:36 | HP.PCM_ITS ---
[facility] - General General Date of Admission: 02/03/24 HPI Narrative ADINA DAVID, is a 68 M who presents for lifestyle limiting right lower extremity claudication. He has a right calf claudication that limits his walking distance to approximately 100 feet before has to stop and rest. This does not improve with walking with a shopping cart. He does have history of prior spine injury whenever he was a teenager however he was evaluated by spine and surgery and felt that no significant pathology existed to explain his symptomatology. He had a CT angiography which revealed right common femoral near or total occlusion with a highly calcified plaque with otherwise very minimal atherosclerotic burden. He is interested in surgical options to improve his ambulatory status. [facility] Medical History Loss of hearing Wears glasses History of renal disease Cancer Former smoker Chronic cough Shortness of breath on exertion History of edema History of stress test Cardiology follow-up encounter History of heart attack (~2018) History of echocardiogram Jacobson filter in place Mastoiditis of right side Recurrent deep vein thrombosis (DVT) Depressive disorder due to another medical condition with depressive features History of pulmonary embolism History of DVT (deep vein thrombosis) Iron deficiency anemia due to chronic blood loss Emphysema lung Dyslipidemia Multiple lipomas History of elevated PSA BPH (benign prostatic hyperplasia) AVM (arteriovenous malformation) of colon Chronic GI bleeding Diverticular disease History of skin cancer Multiple lung nodules Cancer of kidney Essential thrombocythemia Hydrocele Femur fracture (~2020) Pulmonary fibrosis Pulmonary embolism DVT (deep venous thrombosis) Obstructive sleep apnea Coronary artery disease CLL (chronic lymphocytic leukemia) Rhodes esophagus COPD (chronic obstructive pulmonary disease) Home Medications ?Medication ?Instructions ?Recorded ?Last Taken ?Type albuterol sulfate 90 mcg/actuation 1 inh inhalation Q4H PRN shortness 12/26/22 02/03/24 05:00 History aerosol inhaler of breath or wheezing omeprazole 40 mg capsule,delayed 40 mg PO DAILY GERD 12/26/22 02/03/24 05:00 History release zolpidem 5 mg tablet 10 mg PO QHS PRN PRN sleep 12/26/22 02/02/24 21:30 History escitalopram oxalate 5 mg tablet 5 mg PO DAILY Mood 01/30/23 02/03/24 05:00 Hist ory (Lexapro) ascorbic acid (vitamin C) 500 mg 500 mg PO DAILY Supplement 02/06/23 02/02/24 21:30 History tablet evolocumab 140 mg/mL subcutaneous 140 mg subcut QMONTH Heart Health 08/19/23 12/27/23 History pen injector (Kenji Hennessy) metoprolol tartrate 100 mg tablet 150 mg PO DAILY BP 10/07/23 02/03/24 05:00 History rivaroxaban 20 mg tablet (Xarelto) 10 mg PO DAILY Blood Thinner 10/07/23 01/30/24 History acetaminophen 500 mg tablet 1,000 mg (2 x 500 mg) PO Q6 COPD 11/12/23 02/03/24 05:00 Rx #0 tabs fluticasone fur. 100 mcg-umeclid 1 inh inhalation Q24H COPD 12/17/23 02/02/24 History 62.5 mcg-vilant 25 mcg inhalat.powder (Trelegy Ellipta) hydroxyurea 500 mg capsule 1,500 mg PO DAILY Chemo 12/17/23 02/01/24 History ondansetron HCl 8 mg tablet 8 mg PO Q12H PRN nausea and 01/01/24 02/02/24 08:00 History vomiting magnesium oxide 400 mg (241.3 mg 400 mg PO TID SUPPLEMENT 01/16/24 02/03/24 05:00 History magnesium) tablet ferrous sulfate 325 mg (65 mg 325 mg PO DAILY SUPPLEMENT 01/22/24 02/02/24 21:30 History iron) tablet (Feosol) alprazolam 1 mg tablet 1 mg PO QODAY PRN anxiety 02/03/24 02/03/24 05:00 History calcium carbonate (Calcium 600) 600 mg PO DAILY Supplement 02/03/24 02/02/24 21:30 History cholecalciferol (vitamin D3) 50 50 mcg PO DAILY Nutrition 02/03/24 02/02/24 21:30 History mcg (2,000 unit) capsule (Vitamin D3) colestipol 1 gram tablet 1 g PO BID diarrhea 02/03/24 02/03/24 05:00 History Allergy/AdvReac Type Severity Reaction Status Date / Time Penicillins Allergy PT UNSURE Verified 02/03/24 06:22 OF REACTION doxycycline AdvReac Unknown Upset Verified 02/03/24 06:22 Stomach Family History Father Myocardial infarction Mother Colon cancer Surgical History (Updated 01/22/24 @ 15:34 by Rose Childress) History of cardiac catheterization (~2018) History of heart artery stent (~2018) History of hernia surgery (~2021) H/O kidney removal (~2017) History of bowel resection Hx of tonsillectomy Social History household members: none Smoking Status: Current some day smoker tobacco type: cigarettes alcohol intake: never substance use type: does not use, former substance user and other details: marijuana ROS Constitutional Constitutional: Denies chills, fever(s), frequent falls, lethargy or weakness Eyes Eyes: Denies blind spots, change in vision or loss of vision ENT HEENT: Denies bleeding gums, hoarseness or sore throat Cardiovascular Cardiovascular: Denies abdominal pain, bluish discoloration of hand/feet, chest pain with activity, claudication, cold extremities, cyanosis, dyspnea on exertion, erythema on extremities, irregular heart rhythm, leg edema, leg ulcers, numbness in extremities or weakness in extremities Respiratory/Chest Respiratory/Chest: Denies cough, excessive phlegm production, shortness of breath at rest, shortness of breath with exertion or wheezing Gastrointestinal Gastrointestinal: Reports diarrhea; Denies anorexia, change in stool character, constipation, melena or rectal bleeding Genitourinary Genitourinary: Denies dysuria or hematuria Musculoskeletal Musculoskeletal: Denies abnormal gait Integumentary Integumentary: Reports other Details: ; Denies erythema, non-healing lesions or wounds Neurologic Neurologic: Denies abnormal speech, focal weakness, headache(s), loss of vision, numbness, paresthesias or sensory deficit Hematologic/Lymphatic Hematologic/Lymphatic: Denies easy bleeding, easy bruising or lymphadenopathy Vital Signs Vital Signs Vital Signs: 02/03/24 06:20 02/03/24 06:20 02/03/24 06:59 Temperature 97.8 F 97.8 F Temperature Source Temporal Pulse Rate 80 80 Respiratory Rate 16 16 Respiratory Pattern Normal Blood Pressure 107/68 107/68 Blood Pressure Mean 81 Blood Pressure Source Monitor Blood Pressure Position Sitting Blood Pressure Location Left Arm Pulse Ox 94 94 Oxygen Delivery Method Room Air Weight Weight: 185 lb 3.013 oz Body Mass Index (BMI) 26.5 Physical Exam Const alert, oriented x3, no apparent distress and healthy appearing General Appearance: cooperative; Negative for combative or lethargic Orientation / Consciousness: awake Exam Limitations: no limitations HEENT Head and Scalp: normocephalic and atraumatic Eyes EOMs intact bilaterally General Eye: normal appearance of both eyes Neck full ROM, no lymphadenopathy, thyroid normal and No no carotid bruits General: trachea midline; Negative for lymphadenopathy or tenderness Thyroid: thyroid normal Lymph Lymphatic: Negative for no lymphadenopathy noted Resp normal respiratory effort, no use of accessory muscles and clear to auscultation bilaterally Effort and Inspection: Negative for labored, stridor or audible wheezes Cardio regular rate and regular rhythm Back/Spine Cervical Spine: cervical ROM normal Extremity full ROM, normal capillary refill and no clubbing, cyanosis or edema Skin no rashes or lesions noted and no wounds Neuro oriented x3, CN's II-XII intact bilaterally, no focal motor deficits and no sensory deficits noted Psych thought process normal, cooperative, affect normal, speech normal and activity/motor behavior normal Assessment & Plan Assessment/Plan (1) PAOD (peripheral arterial occlusive disease): PLAN: -right femoral endart, sartorius
[2024-02-03] MEDS: Clindamycin 900 MG/50 ML BAG 75 MG IV ×3 (08:15→23:42)
[2024-02-03] MEDS: Heparin 10,000 UNITS/10 ML Vial 10000 UNITS (08:48)
--- NOTE | 2024-02-03 11:52 | OP.PCM_ITS ---
Report of Operation Date of Procedure: 02/03/24 Pre-Operative Diagnosis: atherosclerosis with claudication right lower extremity Post-Operative Diagnosis: same Surgery/Procedure Performed:: right common femoral/profunda femoral/superficial femoral endarterectomy sartorius flap Surgeon: Quentin Boyer Assistant: Hannah Aparicio Type of Anesthesia: General Estimated Blood Loss (mL): 25 Description of Procedure: HPI: Patient is a 68-year-old male with lifestyle limiting claudication of the right lower extremity which has been refractory to conservative management. He was found to have total occlusion of the common femoral artery extending into the profundofemoral artery and proximal superficial femoral artery with otherwise minimal atherosclerotic burden. He is taken now for femoral endarterectomy with plan sartorius flap given the extensive dissection required and his history of impaired immune function due to his CLL diagnosis. Description of procedure: Upon obtaining form consent and verification correct patient procedure site patient was taken to the operating was placed under general anesthesia. He was then positioned prepped and draped in usual sterile fashion a time was performed. Ultrasound was used to locate the position of the femoral bifurcation and oblique incision was made centered over this inferior to the inguinal ligament. Bovie electrocautery was dissect down through subcutaneous tissue and self-retaining retractors were put in position. Further dissection was carried on the femoral sheath which was then incised vertically exposing the femoral vessels. Self-retaining retractors were moved deeper in the wound and sharp dissection was utilized to dissect free proximally to the inguinal ligament. This was then freed along its inferior border allowing it to be retracted cephalad exposing the distal external iliac artery which was found to be soft and free of significant plaque. A right angle was used to place Vesseloops on the distal external iliac artery and the medial lateral circumflex vessels. Next dissection was carried down to the femoral bifurcation ultimately onto the superficial femoral artery to beyond any significant plaque burden or a right angle was then used to place a vessel loop. The profundofemoral artery was dissected free onto the secondary branches in order to find vessel that was free of significant plaque. A right angle was replaced vessel loop around each these individually and the patient was then heparinized allowed to circulate for 3 minutes. Vessels then occluded with Vesseloops and longitudinal arteriotomy was created with an 11 blade extended with Hodge scissors proximally up to the distal external iliac artery and distally down onto the superficial femoral artery for approximately 4 cm. Next the arteriotomy was extended down with the profundofemoral artery primary trunk for approximately 2 cm until there was no further plaque encountered. We then performed her endarterectomy with a freer elevator with satisfactory endpoint distally onto the superficial femoral artery and profundofemoral arteries. Given the extent of endarterectomy performed was felt that patch angioplasty of the profunda and the superficial femoral arteries in addition to the common femoral artery was required. A bovine pericardial patch was then secured onto the superficial femoral artery extending her suture line proximally up to the bifurcation at which point a second pericardial patch was secured onto the profundofemoral artery up to the femoral bifurcation. This point of the patch that initiated on the superficial femoral artery was secured onto the common femoral artery up to the proximal extent of the arteriotomy. The profunda patch was then cut to length to match the lateral edge of the common femoral/SFA patch. Vessels were then back flushed and the suture line connecting the 2 patches completed after which clamps were removed and satisfac tory stasis was noted. There is palpable pulse in the common femoral artery, superficial femoral artery, profundofemoral artery throughout the patch segment and onto the vessels beyond the endarterectomy. Given the extensive endarterectomy required to completely treat the lesion a modifier 22 was applied given approximately 1 hour of additional endarterectomy and patch suture line required. The incision was then inspected for hemostasis and heparin reversed with protamine. We then turned attention to the sartorius muscle and dissected laterally with Bovie electrocautery to the fascia overlying the muscle. This was then incised vertically and the sartorius muscle dissected along its lateral edge up to the ASIS. The insertion was then divided with the Bovie and the muscle mobilized and transposed medially to cover the patches. This was then secured in position overlying the vessels with 2-0 Vicryl interrupted suture. The incision was then closed with 3-0 Vicryl, 4 Monocryl and Dermabond for the skin. The patient was then awakened anesthesia taken to the recovery room with anticipated admission to the intensive care for hemodynamic and vascular monitoring.
--- NOTE | 2024-02-03 12:00 | PCM.POST.ANE ---
Anesthesia: Postop Eval I Current Vital Signs Temperature: 98.7 F Pulse Rate: 82 Blood Pressure: 128/67 Respiratory Rate: 16 Pulse Ox: 93 Oxygen Delivery Method: Nasal Cannula Oxygen Flow Rate (L/min): 2 Assessment Airway patent: Yes Spontaneous unlabored respirations: Yes Mental status: Awake and Calm nausea: No Vomiting: No Anesthesia Complication: No Fluid Hydration Crystalloid volume administer (ml): 100 Total IV fluid infused: 100 Progress Note Anesthesia document: Postop Eval 1 completed: Yes
[2024-02-03] MEDS: oxyCODONE 5 MG Tablet PO ×2 (13:41→20:53)
[2024-02-03] MEDS: Acetaminophen 500 MG Tablet 1000 MG PO ×2 (13:48→23:42)
--- NOTE | 2024-02-03 17:13 | POSTOPAN2_ITS ---
Anesthesia Postop Eval I Sum Postop Eval Completion status Anesthesia document: Postop Eval 1 completed: Yes Anesthesia Postop Eval I Summary Anesthesia Postop Eval I Summary: Anesthesia Postop Eval I: Assessment Summary Airway patent Yes 02/03/24 12:01 CAR CLEANING [email or web address] Spontaneous unlabored Yes 02/03/24 12:01 CAR CLEANING [email or web address] respirations Mental status Awake,Calm 02/03/24 12:01 CAR CLEANING [email or web address] nausea No 02/03/24 12:01 CAR CLEANING [email or web address] Vomiting No 02/03/24 12:01 CAR CLEANING [email or web address] Anesthesia Postop Eval I: Fluid Summary Crystalloid volume administer 100 02/03/24 12:01 CAR CLEANING [email or web address] (ml) Colloids volume administered ( ml) Blood Product volume administered (ml) Total IV fluid infused 100 02/03/24 12:01 CAR CLEANING [email or web address] Anesthesia Postop Eval I: Summary Notes Anesthesia Complication No 02/03/24 12:01 CAR CLEANING [email or web address] Anesthesia Complication Comment: Post-operative progress note Anesthesia: Postop Eval II Evaluation Mental status: Awake Pain Level: 0 nausea: No Vomiting: No
--- NOTE | 2024-02-03 17:13 | PCM.POSTANE2 ---
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[email or web address] Spontaneous unlabored Yes 02/03/24 12:01 FINISHER [email or web address] respirations Mental status Awake,Calm 02/03/24 12:01 FIN[employer]ER [email or web address] nausea No 02/03/24 12:01 FIN[employer]ER [email or web address] Vomiting No 02/03/24 12:01 FINISHER [email or web address] Anesthesia Postop Eval I: Fluid Summary Crystalloid volume administer 100 02/03/24 12:01 FINISHER [email or web address] (ml) Colloids volume administered ( ml) Blood Product volume administered (ml) Total IV fluid infused 100 02/03/24 12:01 FINISHER [email or web address] Anesthesia Postop Eval I: Summary Notes Anesthesia Complication No 02/03/24 12:01 FIN[employer]ER [email or web address] Anesthesia Complication Comment: Post-operative progress note Anesthesia: Postop Eval II Evaluation Mental status: Awake Pain Level: 0 nausea: No Vomiting: No
[2024-02-03] MEDS: Ipratropium/Albuterol Sulfate 3 ML AMPUL.NEB INHALATION (19:12)
[2024-02-03] MEDS: Budesonide Respules 0.5 MG/2 ML AMPUL.NEB. INHALATION (19:12)
[2024-02-03] MEDS: Magnesium Chloride 64 MG Delay Rel.Tablet 128 MG PO (20:52)
[2024-02-03] MEDS: Zolpidem Tartrate 5 MG Tablet 10 MG PO (20:52)
[2024-02-03] MEDS: Colestipol 1 GM TABLET PO (20:52)
[2024-02-03] MEDS: 0.9% Saline Lock 10 ML Syringe IV (23:43)
[2024-02-04] VITALS (19 sets, daily range): BP systolic 109–145; BP diastolic 58–85; PULSE 76–120; RESP 12–26; TEMP 36.4–36.6; O2SAT 92–100; BMI 26.7
[2024-02-04 03:52] LABS: Absolute Lymphocyte Count 11.13 X10^3/uL (0.83-4.51); Absolute Neutrophil Count 3.4 X10^3/uL (2.0-7.7); Basophil# 0.01 X10^3/uL; Hematocrit 22.1 % (40-54); Hemoglobin 6.9 g/dL (13.0-16.5); Lymphocyte # 11.13 X10^3/ul (0.83-4.51); Lymphocyte % 51.4 % (19-41); Mean Corp Hgb Conc 31.2 g/dL (32-36); Mean Corpuscular Hgb 41.8 pg (27.0-32.0); Mean Corpuscular Volume 133.9 fL (80-94); Mean Platelet Vol. 10.1 fl (6.2-12.0); Monocyte# 7.07 X10^3/uL; Monocyte% 32.7 % (0-10); NRBC Flagged by Analyzer 0 % (0-5); Neutrophil # 3.35 X10^3/uL (2.7-7.7); Neutrophil % 15.5 % (47-70); POSITIVE DIFFERENTIAL YES; POSITIVE MORPHOLOGY YES; Platelet Count 287 K/mm3 (150-450); RBC Distribution Width CV 15.2 % (11.6-14.6); RBC Distribution Width SD 74.3 fl (35.1-43.9); Red Blood Count 1.65 M/mm3 (4.6-6.2); White Blood Count 21.7 K/mm3 (4.4-11.0)
[2024-02-04 04:05] LABS: Anion Gap 5 (5-15); BUN 28 mg/dL (7-18); BUN/Creat Ratio 13.3 RATIO (10-20); Calcium,Total 9.4 mg/dL (8.5-10.1); Chloride 106 mmol/L (98-107); EST Glomerular Filtration Rate 33 mL/min (>60); Est Glom Filt Rate - Afr Amer 40 mL/min (>60); Estimated Creatinine Clearance 32.73 ml/min; Glucose 122 mg/dL (74-106); Potassium 4.8 mmol/L (3.5-5.1); Sodium Level 137 mmol/L (136-145)
[2024-02-04 04:08] LABS: Differential Indicated SCAN CRITERIA MET
[2024-02-04 05:15] LABS: Atypical Lymphocyte 2+ %; Differential Comment SCANNED; Reactive Lymphocyte 1+; Smudge Cells 1+
[2024-02-04] MEDS: Colestipol 1 GM TABLET PO ×2 (05:54→20:44)
[2024-02-04] MEDS: Magnesium Chloride 64 MG Delay Rel.Tablet 128 MG PO ×3 (05:54→20:44)
[2024-02-04] MEDS: 0.9% Saline Lock 10 ML Syringe IV (05:54)
[2024-02-04] MEDS: Acetaminophen 500 MG Tablet 1000 MG PO ×3 (07:14→18:09)
[2024-02-04] MEDS: Ipratropium/Albuterol Sulfate 3 ML AMPUL.NEB INHALATION ×3 (07:18→19:15)
[2024-02-04] MEDS: Budesonide Respules 0.5 MG/2 ML AMPUL.NEB. INHALATION ×2 (07:18→19:15)
--- NOTE | 2024-02-04 08:16 | PN.SURG_ITS ---
Subjective Subjective Patient was seen resting comfortably in bed this morning. Reports expected discomfort at the R groin incision site. No new or worsened pain in his lower extremities. He tolerated a normal dinner last night. Garibay was removed this morning, had not yet voided at the time of my exam. His Hgb was noted to be 6.9 early this morning, receiving 1 unit PRBC. Cr is slightly elevated at 2.1, his usual baseline appears to be ~ 1.9. He and his daughter both feel that he would benefit from TCU or rehab at discharge for additional therapy/strengthening prior to going home. Objective Data Objective Data Vital Signs: Vital Signs Temp Pulse Resp BP Pulse Ox O2 Del Method O2 Flow Rate 97.5 F L 101 H 16 125/77 H 94 Nasal Cannula 2 02/04/24 07:11 02/04/24 07:20 02/04/24 07:20 02/04/24 07:11 02/04/24 07:20 02/04/24 07:20 02/04/24 07:20 Oxygen Flow Rate (L/min) 2 Oxygen Delivery Method Nasal Cannula Weight: 180 lb 8.937 oz Body Mass Index (BMI) 26.7 Intake & Output: Intake and Output for Last 24 Hours 02/02/24 02/03/24 02/04/24 23:59 23:59 23:59 Intake Total 1100 / 1100 50 / 50 Output Total 400 / 400 350 / 350 Balance 700 / 700 -300 / -300 Lab / Micro Data 02/04/24 03:41 02/04/24 03:41 Labs: Laboratory Results - last 24 hr 02/04/24 03:41: WBC 21.7 H, RBC 1.65 L, Hgb 6.9 L, Hct 22.1 L, MCV 133.9 H, MCH 41.8 H, MCHC 31.2 L, RDW Std Deviation 74.3 H, RDW Coeff of Susan 15.2 H, Plt Count 287, MPV 10.1, Immature Gran % (Auto) 0.400, Neut % (Auto) 15.5 L, Lymph % (Auto) 51.4 H, [place] % (Auto) 32.7 H, Eos % (Auto) 0.0, Baso % (Auto) 0.0, Absolute Neuts (auto) 3.4, Absolute Lymphs (auto) 11.13 H, Nucleated RBC % 0, Differential Comment SCANNED, Diff Path Review May foll, Atypical Lymphocytes 2+, Reactive Lymphocytes 1+, Smudge Cells 1+ H, Sodium 137, Potassium 4.8, Chloride 106, Carbon Dioxide 26.0, Anion Gap 5, BUN 28 H, Creatinine 2.10 H, Estim Creat Clear Calc 32.73, Est GFR (MDRD) Af Amer 40 L, Est GFR (MDRD) Non-Af 33 L, BUN/Creatinine Ratio 13.3, Glucose 122 H, Calcium 9.4 02/04/24 05:51: Blood Type B POSITIVE, Antibody Screen NEGATIVE, Crossmatch See Detail Physical Exam Const alert, oriented x3 and no apparent distress General Appearance: cooperative and comfortable HEENT normocephalic, head/scalp atraumatic, hearing grossly normal bilaterally, external ears normal and external nose normal Eyes EOMs intact bilaterally General Eye: normal appearance of both eyes Neck General: normal visual inspection and trachea midline Resp normal respiratory effort, normal air movement, no retractions and no use of accessory muscles Effort and Inspection: able to speak in complete sentences Cardio regular rate and regular rhythm Extremity Extremity Narrative: R groin incision site with Prevena vac dressing in place and maintaining seal. Mild edema, soft to palpation. No significant ecchymosis. R DP pulse faintly palpable, DP and PT with triphasic doppler signals Skin no rashes or lesions noted Neuro oriented x3, CN's II-XII intact bilaterally, moves all extremities and no focal motor deficits Assessment & Plan Assessment/Plan (1) PAOD (peripheral arterial occlusive disease): PLAN: He is s/p R common femoral/profunda femoral/SFA endarterectomy with sartorius flap 02/03/24. Incision site is satisfactory in appearance without evidence of hematoma. RLE vascular exam is improved with triphasic doppler signals. Pain is currently well controlled. Hgb was decreased to 6.9 this morning, he is receiving 1 unit PRBC this morning. Will recheck Hgb this afternoon. His baseline Hgb prior to surgery was 8.9, he seems to run ~9-10 over the last few months. Will have PT/OT evaluate today and plan for TCU or rehab at discharge per their recommendations.
--- NOTE | 2024-02-04 10:52 | CASEMGMT ---
Addendum entered by Vanessa Otero 02/04/24 11:36: Spoke with therapy regarding pt session. RN ZAIDA into pt room, pt sitting up in chair eating lunch. Discussed with pt the 3 MN rule and options for therapy if this was met or not met. Pt would like to keep his care at [facility] regardless of which level of care he dc's to. Original Note: MEHUL CERDA Assessment: Face to Face with pt for initial transition planning/care coordination assessment. MEHUL CERDA introduced self and role at [facility], pt voices understanding and consents to assessment. Pt is A&O x4 and answers all questions appropriately at this time. Pt lying in bed in no distress. Care providers, pharmacy, and demographics verified/updated. Admitting Dx: R femoral endarterectomy Strata Score: 2 PCP:Ernesto Specialists:geovanna Boyer; Samara, onc; Brea, cardio; shirin Denis Preferred Pharmacy: [facility] Insurance: [facility], MMO Prescription Benefit: yes LNOK: Raine Ott, dtr Living Arrangements: Pt lives with dtr, son in law and grandchildren in the basement with 11 steps to enter with a rail. Pt reports he is I in ADLs but dtr assists with meals or he does take out delivery. Pt dtr does laundry and pt gets groceries. Transportation: Pt drives self and denies concerns with transportation. DME:rollator, shower chair, walker cane HHC/SNF: Pt has had HHC in the past but does not recall the name of the agency. Pt has been to [facility] and [facility]. Pt states he would like to go to [facility] TCU upon dc. Pt denies need for a list of other options. Therapy in to room to eval at end of assessment. Pt aware RN CM or SW will touch base with him post therapy eval. Pt states no further concerns/needs. CM to follow. Advised pt to ask CM if any further question/concerns/needs arise, voices understanding. Pt Goal: [facility] TCU Plan: TBD pending therapy evals and course of hospitalization. Angelo CARVER CM
[2024-02-04] MEDS: Escitalopram Oxalate 10 MG Tablet 5 MG PO (10:56)
[2024-02-04] MEDS: Pantoprazole Sodium 40 MG Tablet PO (10:57)
[2024-02-04] MEDS: Calcium (Elemental) 500 MG Tablet PO (10:57)
[2024-02-04] MEDS: Ferrous Sulfate 325 MG Tablet PO (10:57)
[2024-02-04] MEDS: Ascorbic Acid 500 MG Tablet PO (10:58)
[2024-02-04] MEDS: Metoprolol Tartrate 50 MG Tablet 150 MG PO (10:59)
[2024-02-04] MEDS: Cholecalciferol (VIT D3) 25 MCG TABLET (1,000 UNITS) 50 MCG PO (11:00)
[2024-02-04] MEDS: Hydroxyurea 500 MG Capsule 1500 MG PO (11:01)
[2024-02-04] MEDS: oxyCODONE 5 MG Tablet PO ×3 (11:13→20:46)
--- NOTE | 2024-02-04 12:10 | CASEMGMT ---
Social Work Per RNCM, pt requesting placement at TCU. Referral made to Madelaine in TCU. Madelaine to review case. Plan: TCU, pending acceptance [facility]
[2024-02-04 13:27] LABS: Hemoglobin 8.3 g/dL (13.0-16.5)
[2024-02-04 14:07] LABS: Pathologist Review Reviewed
--- NOTE | 2024-02-04 15:23 | CASEMGMT ---
Social Work SW met with pt and pt called dgt Raine on speaker phone. SW informed that TCU can accept pt, however pt's med Repatha will need to be held. Pt and dgt understanding and agreeable to admission to TCU. Plan: TCU, bed will be available on Friday or Friday [facility]
[2024-02-04] MEDS: Rivaroxaban 10 MG Tablet PO (15:49)
[2024-02-04] MEDS: Mag Hydrox/Al Hydrox/Simeth 30 ML UDC PO (20:44)
[2024-02-04] MEDS: Zolpidem Tartrate 5 MG Tablet 10 MG PO (20:47)
[2024-02-05] MEDS: Acetaminophen 500 MG Tablet 1000 MG PO ×3 (00:36→17:39)
[2024-02-05 02:00] VITALS: BP 146/81; PULSE 100; RESP 18; TEMP 36.6; O2SAT 97
[2024-02-05] MEDS: oxyCODONE 5 MG Tablet PO (02:18)
[2024-02-05 04:33] LABS: Absolute Lymphocyte Count 12.72 X10^3/uL (0.83-4.51); Basophil# 0.03 X10^3/uL; Basophil% 0.1 % (0-1); Eosinophil# 0.03 X10^3/uL; Eosinophils% 0.1 % (0-5); Hemoglobin 8.5 g/dL (13.0-16.5); Lymphocyte # 12.72 X10^3/ul (0.83-4.51); Lymphocyte % 46.6 % (19-41); Mean Corp Hgb Conc 31.5 g/dL (32-36); Mean Corpuscular Hgb 39.9 pg (27.0-32.0); Mean Corpuscular Volume 126.8 fL (80-94); Mean Platelet Vol. 9.9 fl (6.2-12.0); Monocyte% 41.7 % (0-10); NRBC Flagged by Analyzer 0.1 % (0-5); Neutrophil # 3.02 X10^3/uL (2.7-7.7); Neutrophil % 11.1 % (47-70); POSITIVE DIFFERENTIAL YES; POSITIVE MORPHOLOGY YES; Platelet Count 303 K/mm3 (150-450); RBC Distribution Width CV 21.6 % (11.6-14.6); RBC Distribution Width SD 99.8 fl (35.1-43.9); Red Blood Count 2.13 M/mm3 (4.6-6.2); White Blood Count 27.3 K/mm3 (4.4-11.0)
[2024-02-05 04:58] LABS: Anion Gap 4 (5-15); BUN 36 mg/dL (7-18); BUN/Creat Ratio 17.8 RATIO (10-20); Calcium,Total 9.9 mg/dL (8.5-10.1); Chloride 104 mmol/L (98-107); Creatinine, Serum 2.02 mg/dL (0.70-1.30); EST Glomerular Filtration Rate 35 mL/min (>60); Est Glom Filt Rate - Afr Amer 42 mL/min (>60); Estimated Creatinine Clearance 34.03 ml/min; Glucose 97 mg/dL (74-106); Potassium 4.6 mmol/L (3.5-5.1); Sodium Level 137 mmol/L (136-145)
[2024-02-05 05:36] LABS: Differential Indicated SCAN CRITERIA MET
[2024-02-05 05:39] LABS: Differential Comment SCANNED
[2024-02-05] MEDS: proCHLORPERazine 10 MG/2 ML Vial 5 MG IV (05:59)
[2024-02-05] MEDS: 0.9% Saline Lock 10 ML Syringe IV (05:59)
[2024-02-05 06:00] VITALS: BMI 26.8
[2024-02-05 08:00] VITALS: BP 132/74; PULSE 110; RESP 17; TEMP 36.6; O2SAT 97
[2024-02-05] MEDS: Ondansetron 8 MG Tablet PO (08:54)
[2024-02-05 08:55] VITALS: BP 132/74; PULSE 110
[2024-02-05] MEDS: Calcium (Elemental) 500 MG Tablet PO (08:55)
[2024-02-05] MEDS: Cholecalciferol (VIT D3) 25 MCG TABLET (1,000 UNITS) 50 MCG PO (08:55)
[2024-02-05] MEDS: Pantoprazole Sodium 40 MG Tablet PO (08:55)
[2024-02-05] MEDS: Metoprolol Tartrate 50 MG Tablet 150 MG PO (08:55)
[2024-02-05] MEDS: Escitalopram Oxalate 10 MG Tablet 5 MG PO (08:56)
[2024-02-05] MEDS: Ascorbic Acid 500 MG Tablet PO (08:56)
[2024-02-05] MEDS: Hydroxyurea 500 MG Capsule 1500 MG PO (08:56)
--- NOTE | 2024-02-05 09:19 | PN.SURG_ITS ---
Subjective Subjective Patient seen resting in bed this morning. Reports that overall with mild pain at the surgery site, this is well controlled. He had an episode of heartburn and nausea/vomiting this morning, this improved fairly quickly with pantoprazole and zofran administration. He has since been able to tolerate a cup of coffee. He has no other complaints this morning. He was supposed to have an outpatient CT scan this morning and was frustrated that he was not able to have this done while inpatient. Objective Data Objective Data Vital Signs: Vital Signs Temp Pulse Resp BP Pulse Ox O2 Del Method O2 Flow Rate 97.8 F 110 H 17 132/74 H 97 Room Air 2 02/05/24 08:00 02/05/24 08:55 02/05/24 08:00 02/05/24 08:55 02/05/24 08:00 02/05/24 08:00 02/04/24 07:20 Oxygen Flow Rate (L/min) 2 Oxygen Delivery Method Room Air Weight: 181 lb 7.047 oz Body Mass Index (BMI) 26.8 Intake & Output: Intake and Output for Last 24 Hours 02/03/24 02/04/24 02/05/24 23:59 23:59 23:59 Intake Total 1100 / 1100 550 / 550 Output Total 400 / 400 1100 / 1400 350 / 350 Balance 700 / 700 -550 / -850 -350 / -350 Lab / Micro Data 02/05/24 04:09 02/05/24 04:09 Labs: Laboratory Results - last 24 hr 02/04/24 03:41: Diff Path Review Reviewed 02/04/24 05:51: Crossmatch See Detail 02/04/24 13:15: Hgb 8.3 L 02/05/24 04:09: WBC 27.3 H, RBC 2.13 L, Hgb 8.5 L, Hct 27.0 L, MCV 126.8 H D, M CH 39.9 H, MCHC 31.5 L, RDW Std Deviation 99.8 H, RDW Coeff of Susan 21.6 H, Plt Count 303, MPV 9.9, Immature Gran % (Auto) 0.400, Neut % (Auto) 11.1 L, Lymph % (Auto) 46.6 H, [place] % (Auto) 41.7 H, Eos % (Auto) 0.1, Baso % (Auto) 0.1, Absolute Neuts (auto) 3.0, Absolute Lymphs (auto) 12.72 H, Nucleated RBC % 0.1, Differential Comment SCANNED, Sodium 137, Potassium 4.6, Chloride 104, Carbon Dioxide 29.0, Anion Gap 4 L, BUN 36 H, Creatinine 2.02 H, Estim Creat Clear Calc 34.03, Est GFR (MDRD) Af Amer 42 L, Est GFR (MDRD) Non-Af 35 L, BUN/Creatinine Ratio 17.8, Glucose 97, Calcium 9.9 Physical Exam Const alert, oriented x3 and no apparent distress General Appearance: cooperative and comfortable HEENT normocephalic, head/scalp atraumatic, hearing grossly normal bilaterally, external ears normal and external nose normal Eyes EOMs intact bilaterally General Eye: normal appearance of both eyes Neck General: normal visual inspection and trachea midline Resp normal respiratory effort, normal air movement, no retractions and no use of accessory muscles Effort and Inspection: able to speak in complete sentences Cardio regular rate and regular rhythm Extremity Extremity Narrative: R groin incision site with Prevena vac dressing in place and maintaining seal. Mild edema, soft to palpation. No significant ecchymosis. R DP pulse faintly palpable, DP and PT with triphasic doppler signals Skin no rashes or lesions noted Neuro oriented x3, CN's II-XII intact bilaterally, moves all extremities and no focal motor deficits Assessment & Plan Assessment/Plan (1) PAOD (peripheral arterial occlusive disease): PLAN: He is s/p R common femoral/profunda femoral/SFA endarterectomy with sartorius flap 02/03/24. Incision site remains satisfactory in appearance, wound vac maintaining seal. Hgb improved to 8.5 this morning after receiving 1 unit PRBC yesterday. Kidney function improved today with Cr. 2.02 and GFR 35 which was his baseline prior to surgery. Plan is for TCU at discharge, they are able to accept him tomorrow.
[2024-02-05] MEDS: Magnesium Chloride 64 MG Delay Rel.Tablet 128 MG PO ×2 (11:50→20:25)
[2024-02-05] MEDS: Ferrous Sulfate 325 MG Tablet PO (11:50)
[2024-02-05 14:29] VITALS: BP 132/73; PULSE 80; RESP 12; TEMP 36.7; O2SAT 93
[2024-02-05] MEDS: Rivaroxaban 10 MG Tablet PO (17:00)
[2024-02-05 19:03] VITALS: PULSE 92; RESP 16
[2024-02-05] MEDS: Budesonide Respules 0.5 MG/2 ML AMPUL.NEB. INHALATION (19:03)
[2024-02-05] MEDS: Ipratropium/Albuterol Sulfate 3 ML AMPUL.NEB INHALATION (19:03)
[2024-02-05] MEDS: Zolpidem Tartrate 5 MG Tablet 10 MG PO (20:25)
[2024-02-05] MEDS: Colestipol 1 GM TABLET PO (20:25)
[2024-02-05 20:30] VITALS: BP 120/68; PULSE 103; RESP 16; TEMP 36.2; O2SAT 92
[2024-02-06 02:30] VITALS: BP 135/72; PULSE 104; RESP 18; TEMP 36.7; O2SAT 93
[2024-02-06] MEDS: Magnesium Chloride 64 MG Delay Rel.Tablet 128 MG PO (05:21)
[2024-02-06] MEDS: Acetaminophen 500 MG Tablet 1000 MG PO (05:21)
[2024-02-06] MEDS: Colestipol 1 GM TABLET PO (05:21)
[2024-02-06 05:41] LABS: Absolute Lymphocyte Count 18.06 X10^3/uL (0.83-4.51); Absolute Neutrophil Count 3.6 X10^3/uL (2.0-7.7); Basophil# 0.02 X10^3/uL; Basophil% 0.1 % (0-1); Eosinophil# 0.04 X10^3/uL; Eosinophils% 0.1 % (0-5); Hematocrit 27.1 % (40-54); Hemoglobin 8.4 g/dL (13.0-16.5); Lymphocyte # 18.06 X10^3/ul (0.83-4.51); Mean Corpuscular Hgb 39.3 pg (27.0-32.0); Mean Corpuscular Volume 126.6 fL (80-94); Mean Platelet Vol. 9.7 fl (6.2-12.0); Monocyte# 10.98 X10^3/uL; Monocyte% 33.5 % (0-10); NRBC Flagged by Analyzer 0 % (0-5); Neutrophil # 3.64 X10^3/uL (2.7-7.7); Neutrophil % 11.1 % (47-70); POSITIVE COUNT YES; POSITIVE DIFFERENTIAL YES; POSITIVE MORPHOLOGY YES; Platelet Count 324 K/mm3 (150-450); RBC Distribution Width SD 97.1 fl (35.1-43.9); Red Blood Count 2.14 M/mm3 (4.6-6.2)
[2024-02-06 06:01] LABS: White Blood Count 32.8 K/mm3 (4.4-11.0)
[2024-02-06 06:07] LABS: Anion Gap 7 (5-15); BUN 26 mg/dL (7-18); Calcium,Total 9.8 mg/dL (8.5-10.1); Chloride 106 mmol/L (98-107); Creatinine, Serum 1.86 mg/dL (0.70-1.30); EST Glomerular Filtration Rate 38 mL/min (>60); Est Glom Filt Rate - Afr Amer 46 mL/min (>60); Estimated Creatinine Clearance 36.95 ml/min; Glucose 105 mg/dL (74-106); Potassium 4.4 mmol/L (3.5-5.1); Sodium Level 137 mmol/L (136-145)
[2024-02-06 06:56] LABS: Anisocytosis 2+; Differential Comment SCANNED; Hypochromasia RARE; Macrocytosis 1+; Microcytosis 1+; Ovalocyte 1+; Platelet Estimate ADEQUATE (ADEQ); Polychromasia 1+; Stomatocyte 1+
--- NOTE | 2024-02-06 08:20 | PCM.DC.SUM ---
Providers Date of Admission: 02/03/24 Primary Care Physician: Dr. Leighton Orozco MD Reason For Visit: right Femoral Endarterectomy sartor Diagnosis Discharge Diagnosis (1) PAOD (peripheral arterial occlusive disease): Status: Chronic Code(s): I77.9 - Disorder of arteries and arterioles, unspecified Plan: He is s/p R common femoral/profunda femoral/SFA endarterectomy with sartorius flap 02/03/24. Incision site remains satisfactory in appearance, wound vac maintaining seal. Hgb improved to 8.5 this morning after receiving 1 unit PRBC yesterday. Kidney function improved today with Cr. 2.02 and GFR 35 which was his baseline prior to surgery. Plan is for TCU at discharge, they are able to accept him tomorrow. Medications at Discharge Home Medications albuterol sulfate 90 mcg/actuation aerosol inhaler 1 inh inhalation Q4H PRN shortness of breath or wheezing 12/26/22 omeprazole 40 mg capsule,delayed release 40 mg PO DAILY GERD 12/26/22 zolpidem 5 mg tablet 10 mg PO QHS PRN PRN sleep 12/26/22 escitalopram oxalate 5 mg tablet (Lexapro) 5 mg PO DAILY Mood 01/30/23 ascorbic acid (vitamin C) 500 mg tablet 500 mg PO DAILY Supplement 02/06/23 evolocumab 140 mg/mL subcutaneous pen injector (Repatha SureClick) 140 mg subcut QMONTH [facility] [place] 08/19/23 metoprolol tartrate 100 mg tablet 150 mg PO DAILY BP 10/07/23 rivaroxaban 20 mg tablet (Xarelto) 10 mg PO DAILY Blood Thinner 10/07/23 acetaminophen 500 mg tablet 1,000 mg (2 x 500 mg) PO Q6 COPD #0 tabs 11/12/23 fluticasone fur. 100 mcg-umeclid 62.5 mcg-vilant 25 mcg inhalat.powder (Trelegy Ellipta) 1 inh inhalation Q24H COPD 12/17/23 hydroxyurea 500 mg capsule 1,500 mg PO DAILY Chemo 12/17/23 ondansetron HCl 8 mg tablet 8 mg PO Q12H PRN nausea and vomiting 01/01/24 magnesium oxide 400 mg (241.3 mg magnesium) tablet 400 mg PO TID SUPPLEMENT 01/16/24 ferrous sulfate 325 mg (65 mg iron) tablet (Feosol) 325 mg PO DAILY SUPPLEMENT 01/22/24 alprazolam 1 mg tablet 1 mg PO QODAY PRN anxiety 02/03/24 calcium carbonate (Calcium 600) 600 mg PO DAILY Supplement 02/03/24 cholecalciferol (vitamin D3) 50 mcg (2,000 unit) capsule (Vitamin D3) 50 mcg PO DAILY Nutrition 02/03/24 colestipol 1 gram tablet 1 g PO BID diarrhea 02/03/24 oxycodone 5 mg tablet 5 mg PO Q8H PRN PRN Pain Score 4-10 5 days #15 tabs 02/06/24 Hospital Course Summary of Care Provided Hospital Course: Siva Luke is a 68-year-old male who underwent right common femoral/profunda femoral/superficial femoral endarterectomy with sartorius flap secondary to lifestyle limiting right lower extremity claudication. The procedure was without complication and he tolerated it well. Postoperatively, he was routinely admitted to the ICU for ongoing hemodynamic monitoring. There is a Prevena vacuum dressing in place to the right groin which has been maintaining good seal. The right groin incision site is without any signs of infection. He has only expected postoperative discomfort. He reports that he has already noticed an improvement in his right lower extremity pain just with ambulating about the room and with physical therapy. On postop day #1 he was noted to have acute on chronic anemia secondary to blood loss from surgery with hemoglobin 6.9. He received 1 unit of PRBC and his hemoglobin improved to 8.5 and was stable at 8.4 on this morning at discharge, his baseline is around 9. He did have 1 episode of heartburn/nausea/vomiting on 1024 but this resolved with pantoprazole and Zofran administration and has not recurred. His white count is within his usual baseline range given his known CLL. His kidney function was initially slightly decreased postoperatively and is returned to his baseline function with today's creatinine 1.86 and GFR 38. He has been voiding without difficulty, his pain has been well-controlled, and he has been tolerating a normal diet. He was evaluated by PT/OT who recommended further therapy and the patient was agreeable to placement in TCU who were able to accept. Physical Exam Const alert, oriented x3 and no apparent distress General Appearance: cooperative and comfortable HEENT normocephalic, head/scalp atraumatic, hearing grossly normal bilaterally, external ears normal and external nose normal Eyes EOMs intact bilaterally General Eye: normal appearance of both eyes Neck General: normal visual inspection and trachea midline Resp normal respiratory effort, normal air movement, no retractions and no use of accessory muscles Effort and Inspection: able to speak in complete sentences Cardio regular rate and regular rhythm Extremity Extremity Narrative: R groin incision site with Prevena vac dressing in place and maintaining seal. Mild edema, soft to palpation. No significant ecchymosis. R DP palpable, DP and PT with triphasic doppler signals Left DP pulse palpable Skin no rashes or lesions noted Neuro oriented x3, CN's II-XII intact bilaterally, moves all extremities and no focal motor deficits Weight / BMI Weight Weight: 181 lb 7.047 oz Body Mass Index (BMI) 26.8 ABG / Lab / Microbiology Data 02/06/24 05:10 02/06/24 05:10 Laboratory: Laboratory Results - last 24 hr 02/06/24 05:10: WBC 32.8 H*, RBC 2.14 L, Hgb 8.4 L, Hct 27.1 L, MCV 126.6 H, MCH 39.3 H, MCHC 31.0 L, RDW Std Deviation 97.1 H, RDW Coeff of Susan 21.0 H, Plt Count 324, MPV 9.7, Immature Gran % (Auto) 0.200, Neut % (Auto) 11.1 L, Lymph % (Auto) 55.0 H, [place] % (Auto) 33.5 H, Eos % (Auto) 0.1, Baso % (Auto) 0.1, Absolute Neuts (auto) 3.6, Absolute Lymphs (auto) 18.06 H, Nucleated RBC % 0, Differential Comment SCANNED, Diff Path Review May foll, Platelet Estimate ADEQUATE, Polychromasia 1+, Hypochromasia RARE, Anisocytosis 2+, Microcytosis 1+, Macrocytosis 1+, Ovalocytes 1+, Stomatocytes 1+, Sodium 137, Potassium 4.4, Chloride 106, Carbon Dioxide 24.0, Anion Gap 7, BUN 26 H, Creatinine 1.86 H, Estim Creat Clear Calc 36.95, Est GFR (MDRD) Af Amer 46 L, Est GFR (MDRD) Non-Af 38 L, BUN/Creatinine Ratio 14.0, Glucose 105, Calcium 9.8 D/C Instructions Discharge Diet: No restrictions May shower in (days): 1 Weight Bearing Status: Weight bearing as tolerated Lifting Restricted to (Lbs): 20 Lifting Restrictions: Do not lift greater than 20 pounds for 3 weeks Call your doctor if your incision/area has: Sudden Increased Bleeding, Increased Pain/ Swelling and Foul Smelling Discharge Call your doctor if you observe: Fever of 101 or Higher and Uncontrolled pain Remove Dressing in: 4 days Additional Instructions: There is a Prevena wound VAC dressing in place to the right groin incision site. This is to remain in place for 7 days postoperatively so can be removed on 02/10/2024. If the device malfunctions or seal is not able to be maintained then okay to remove sooner as needed. The right groin incision site is closed with skin glue. Once the Prevena VAC dressing is removed, the site may be left open to air. May shower, soap and water may rinse over the incision site. Pat gently to dry. Do not submerge the incision site such as to take a bath or go swimming etc. for 3 weeks or until the site is fully healed. Do not lift greater than 20 pounds for 3 weeks. Otherwise please proceed with activity and physical therapy as tolerated. Please Follow Up With: Monisha Edmonds PA When: 02/25/2024 Meaningful Use Info Meaningful Use Meaningful Use Diagnoses (Choose all that apply): None applicable Ischemic Stroke Statin Dosing Therapy Reference: STATIN DOSE THERAPY REFERENCE: * Patients > 75 years receive moderate or high dose statin therapy. * Patients 75 years or YOUNGER should receive HIGH intensity statin dose unless contraindicated. You will be required to document reason for non-treatment if statin daily dose does not meet guidelines. HIGH DOSE STATIN THERAPY DAILY Atorvastatin > than or = to 40 mg Rosuvastatin > than or = to 20 mg Amlodipine + Atorvastatin > than or = to 2.5/40 mg Ezetimibe + Simvastatin 10/80 mg Simvastatin 80mg Discharge Plan Admission Admit Date/Time: 02/03/24 11:43 Attending Provider: Quentin Boyer Primary Care Provider: Leighton Orozco Chi Instructions Additional Instructions / Restrictions: There is a Prevena wound VAC dressing in place to the right groin incision site. This is to remain in place for 7 days postoperatively so can be removed on 02/10/2024. If the device malfunctions or seal is not able to be maintained then okay to remove sooner as needed. The right groin incision site is closed with skin glue. Once the Prevena VAC dressing is removed, the site may be left open to air. May shower, soap and water may rinse over the incision site. Pat gently to dry. Do not submerge the incision site such as to take a bath or go swimming etc. for 3 weeks or until the site is fully healed. Do not lift greater than 20 pounds for 3 weeks. Otherwise please proceed with activity and physical therapy as tolerated. Discharge Orders/Prescriptions Prescriptions: New oxycodone 5 mg Tablet 5 mg PO Q8H PRN PRN (Reason: Pain Score 4-10) 5 Days Qty: 15 0RF Continued ascorbic acid (vitamin C) 500 mg tablet 500 mg PO DAILY escitalopram oxalate [Lexapro] 5 mg tablet 5 mg PO DAILY Xarelto 20 mg tablet 10 mg PO DAILY Rx Instructions: must administer with evening meal hydroxyurea 500 mg capsule 1,500 mg PO DAILY Rx Instructions: rest on Friday [facility] Ellipta 100-62.5-25 mcg blister with device 1 inh inhalation Q24H ondansetron HCl 8 mg tablet 8 mg PO Q12H PRN (Reason: nausea and vomiting) albuterol sulfate 90 mcg/actuation HFA aerosol inhaler 1 inh INHALATION Q4H PRN (Reason: shortness of breath or wheezing) omeprazole 40 mg capsule,delayed release(DR/EC) 40 mg PO DAILY Patient Comments: TAKE 1 CAPSULE BY MOUTH ONCE DAILY zolpidem 5 mg tablet 10 mg PO QHS PRN PRN (Reason: sleep) metoprolol tartrate 100 mg tablet 150 mg PO DAILY ferrous sulfate [Feosol] 325 mg (65 mg iron) tablet 325 mg PO DAILY cholecalciferol (vitamin D3) [Vitamin D3] 50 mcg (2,000 unit) capsule 50 mcg PO DAILY calcium carbonate [Calcium 600] 600 mg calcium (1,500 mg) tablet 600 mg PO DAILY alprazolam 1 mg tablet 1 mg PO QODAY PRN (Reason: anxiety) colestipol 1 gram tablet 1 g PO BID magnesium oxide 400 mg (241.3 mg magnesium) tablet 400 mg PO TID acetaminophen 500 mg Tablet 1,000 mg PO Q6 Qty: 0 0RF Held Repatha SureClick 140 mg/mL pen injector 140 mg SUBCUT QMONTH Hold Instructions: Resume on 02/13/24. Patient Comments: INJECT 140 MG SUBCUTANEOUSLY ONCE EVERY MONTH Referrals / Follow Up: Leighton Orozco Chi, MD [Primary Care Provider] - Disposition Disposition (needs filled in before D/C Order can be placed): Custodial Facility
[2024-02-06 08:22] VITALS: BP 124/90; PULSE 120; RESP 18; TEMP 36.3; O2SAT 92
[2024-02-06] MEDS: Cholecalciferol (VIT D3) 25 MCG TABLET (1,000 UNITS) 50 MCG PO (08:39)
[2024-02-06] MEDS: Ascorbic Acid 500 MG Tablet PO (08:40)
[2024-02-06] MEDS: Calcium (Elemental) 500 MG Tablet PO (08:40)
[2024-02-06] MEDS: Ipratropium/Albuterol Sulfate 3 ML AMPUL.NEB INHALATION (09:16)
[2024-02-06] MEDS: Budesonide Respules 0.5 MG/2 ML AMPUL.NEB. INHALATION (09:16)
[2024-02-06 09:18] VITALS: PULSE 111; RESP 16; O2SAT 97
--- NOTE | 2024-02-06 09:28 | PCM.TXEXTCAR ---
Diet Diet Order/Speech Therapy: 02/03/24 16:27 Diet: Regular - General Type of Dietary Supplement:: Ensure Plus High Protein Diet Comments: 120mL ensure plus HP w/ all meals Routine Orders/Code Status Routine Lab Work: CBC and BMP Code Status: Full Code Wound(s) right groin: Wound Type: Surgical Incision (Prevena VAC in place, may remove on 02/10/2024; incision closed with skin glue) Therapies Weight Bearing: Full weight bearing Physical Therapy: Eval and Treat Occupational Therapy: Eval and Treat Problem/Diagnosis (1) PAOD (peripheral arterial occlusive disease): Status: Chronic Code(s): I77.9 - Disorder of arteries and arterioles, unspecified Allergies/Procedures Done in Hospital Allergies Penicillins Allergy (Verified 02/03/24 06:22) PT UNSURE OF REACTION Occurred in childhood ~ 8 y.o doxycycline Adverse Reaction (Unknown, Verified 02/03/24 06:22) Upset Stomach Type of Care/Length of Stay Estimated LOS: Convalescent Care Less Than 30 days Type of Care Needed: Skilled Rehab Potential: Good Prognosis: Good Additional Orders/Day of Discharge Day of Discharge: 02/06/24 Dietary and Speech Recommendations Dietitian Recommendations/Changes: Continue liberal regular diet. Will order 120ml ensure plus high protein TID with meals. Will adjust ONS, as needed. Reviewed and approved by Hanna Espana, , RD, LD. Follow Up Care Please Follow Up With: Monisha Edmonds PA Discharge Plan Admission Admit Date/Time: 02/03/24 11:43 Attending Provider: Quentin Boyer Primary Care Provider: Leighton Orozco Chi Instructions Additional Instructions / Restrictions: There is a Prevena wound VAC dressing in place to the right groin incision site. This is to remain in place for 7 days postoperatively so can be removed on 02/10/2024. If the device malfunctions or seal is not able to be maintained then okay to remove sooner as needed. The right groin incision site is closed with skin glue. Once the Prevena VAC dressing is removed, the site may be left open to air. May shower, soap and water may rinse over the incision site. Pat gently to dry. Do not submerge the incision site such as to take a bath or go swimming etc. for 3 weeks or until the site is fully healed. Do not lift greater than 20 pounds for 3 weeks. Otherwise please proceed with activity and physical therapy as tolerated. Discharge Orders/Prescriptions Prescriptions: New oxycodone 5 mg Tablet 5 mg PO Q8H PRN PRN (Reason: Pain Score 4-10) 5 Days Qty: 15 0RF Continued ascorbic acid (vitamin C) 500 mg tablet 500 mg PO DAILY escitalopram oxalate [Lexapro] 5 mg tablet 5 mg PO DAILY Xarelto 20 mg tablet 10 mg PO DAILY Rx Instructions: must administer with evening meal hydroxyurea 500 mg capsule 1,500 mg PO DAILY Rx Instructions: [facility] Ell[facility]a 100-62.5-25 mcg blister with device 1 inh inhalation Q24H ondansetron HCl 8 mg tablet 8 mg PO Q12H PRN (Reason: nausea and vomiting) albuterol sulfate 90 mcg/actuation HFA aerosol inhaler 1 inh INHALATION Q4H PRN (Reason: shortness of breath or wheezing) omeprazole 40 mg capsule,delayed release(DR/EC) 40 mg PO DAILY Patient Comments: TAKE 1 CAPSULE BY MOUTH ONCE DAILY zolpidem 5 mg tablet 10 mg PO QHS PRN PRN (Reason: sleep) metoprolol tartrate 100 mg tablet 150 mg PO DAILY ferrous sulfate [Feosol] 325 mg (65 mg iron) tablet 325 mg PO DAILY cholecalciferol (vitamin D3) [Vitamin D3] 50 mcg (2,000 unit) capsule 50 mcg PO DAILY calcium carbonate [Calcium 600] 600 mg calcium (1,500 mg) tablet 600 mg PO DAILY alprazolam 1 mg tablet 1 mg PO QODAY PRN (Reason: anxiety) colestipol 1 gram tablet 1 g PO BID magnesium oxide 400 mg (241.3 mg magnesium) tablet 400 mg PO TID acetaminophen 500 mg Tablet 1,000 mg PO Q6 Qty: 0 0RF Held Repatha SureClick 140 mg/mL pen injector 140 mg SUBCUT QMONTH Hold Instructions: Resume on 02/13/24. Patient Comments: INJECT 140 MG SUBCUTANEOUSLY ONCE EVERY MONTH Referrals / Follow Up: Leighton Orozco Chi, MD [Primary Care Provider] - Disposition Disposition (needs filled in before D/C Order can be placed): [facility] Facility
--- NOTE | 2024-02-06 09:55 | CASEMGMT ---
Social Work TCU is able to accept pt today. Per physician, pt is ready for dc. DC orders faxed to TCU. SW met with pt and informed of discharge to TCU today. Pt is agreeable and states he will call his daughter and let her know. Nursing updated. Disposition: TCU, skilled level of care [facility]
[2024-02-06 10:16] VITALS: PULSE 120
[2024-02-06] MEDS: Pantoprazole Sodium 40 MG Tablet PO (10:16)
[2024-02-06] MEDS: Hydroxyurea 500 MG Capsule 1500 MG PO (10:16)
[2024-02-06] MEDS: Escitalopram Oxalate 10 MG Tablet 5 MG PO (10:16)
[2024-02-06] MEDS: Metoprolol Tartrate 50 MG Tablet 150 MG PO (10:16)
[2024-02-06 15:50] LABS: Pathologist Review Reviewed
== END 2024-02-06 10:50 | disposition skilled nursing facility (03) | DRG 253 ==
LOC: ICU 13:23
PROVIDERS: Physician Assistant; Admitting Provider Surgery Trauma Surgery; PCP Family Medicine Geriatric Medicine; Referring Provider Surgery Trauma Surgery; Visit Provider Surgery Trauma Surgery
PROC: 04CK0ZZ Extirpation of Matter from Right Femoral Artery, Open Approach (ICD-10-PCS; principal; 2024-02-03 07:10)
DX: I70.211 Atherosclerosis of native arteries of extremities with intermittent claudication, right leg (principal); D62 Acute posthemorrhagic anemia; C91.10 Chronic lymphocytic leukemia of B-cell type not having achieved remission; I70.92 Chronic total occlusion of artery of the extremities; E78.5 Hyperlipidemia, unspecified; I25.2 Old myocardial infarction; R11.2 Nausea with vomiting, unspecified; J43.9 Emphysema, unspecified; Z79.01 Long term (current) use of anticoagulants; Z79.899 Other long term (current) drug therapy; Z87.891 Personal history of nicotine dependence; Z86.711 Personal history of pulmonary embolism; Z86.718 Personal history of other venous thrombosis and embolism
CPT/HCPCS: 36415; 80048; 85018; 85025; 86850; 86900; 86901; 86920; 88304; 88311; 94640; 94668; 97162; 97166; 99252; A4648; J7040; J7120; P9016; A4216; G0463; J2405

== ENCOUNTER 2024-02-06 11:19 | Inpatient (IN) | payer MEDICARE, OTHER, SELFPAY ==
[2024-02-06 11:26] VITALS: BP 130/67; PULSE 114; RESP 16; TEMP 36.6; O2SAT 94
[2024-02-06 11:28] VITALS: BMI 27.1
[2024-02-06 12:45] VITALS: PULSE 83; RESP 18; O2SAT 94
[2024-02-06] MEDS: Acetaminophen 500 MG Tablet 1000 MG PO ×2 (13:15→19:00)
--- NOTE | 2024-02-06 14:12 | PCM.HP.STD ---
HPI - General General Date of Admission: 02/06/24 Date of Service: 02/06/24 Chief Complaint: Here for rehabilitation. HPI Narrative ADINA DAVID, is a 68 Male who presents with followin02/03/2024 Admit [facility]. 02/03/2024 Dr. Boyer performed right common femoral/profunda femoral/superficial femoral endarterectomy sartorius flap. 02/04/2024 Resting comfortably. Right groin incision discomfort. Tolerated dinner, cameron out, Hemoglobin 6.9. Transfuse 1 unit PRBC. PT/OT for TCU. 02/05/2024 Mild pain right groin. Heartburn improved with pantoprazole. nausea/vomiting improved with zofran. Hemoglobin improved to 8.5. Creatinine 2.02, back to baseline. 02/06/2024 Admit to TCU with debility, here for rehabilitation, strengthening, prior to discharge home with daughter. [facility] Medical History (Updated 02/06/24 @ 14:[address] Leighton Orozco MD) Pulmonary embolism Debility Loss of hearing Wears glasses History of renal disease Cancer Former smoker Chronic cough Shortness of breath on exertion History of edema History of stress test Cardiology follow-up encounter History of heart attack (~2018) History of echocardiogram [place] filter in place Mastoiditis of right side Recurrent deep vein thrombosis (DVT) Depressive disorder due to another medical condition with depressive features History of pulmonary embolism History of DVT (deep vein thrombosis) Iron deficiency anemia due to chronic blood loss Emphysema lung Dyslipidemia Multiple lipomas History of elevated PSA BPH (benign prostatic hyperplasia) AVM (arteriovenous malformation) of colon Chronic GI bleeding Diverticular disease History of skin cancer Multiple lung nodules Cancer of kidney Essential thrombocythemia Hydrocele Femur fracture (~2020) Pulmonary fibrosis DVT (deep venous thrombosis) Obstructive sleep apnea Coronary artery disease CLL (chronic lymphocytic leukemia) [place] esophagus COPD (chronic obstructive pulmonary disease) Home Medications ?Medication ?Instructions ?Recorded ?Last Taken ?Type albuterol sulfate 90 mcg/actuation 1 inh inhalation Q4H PRN shortness 12/26/22 02/03/24 05:00 History aerosol inhaler of breath or wheezing omeprazole 40 mg capsule,delayed 40 mg PO DAILY GERD 12/26/22 02/03/24 05:00 History release zolpidem 5 mg tablet 10 mg PO QHS PRN PRN sleep 12/26/22 02/02/24 21:30 History escitalopram oxalate 5 mg tablet 5 mg PO DAILY Mood 01/30/23 02/03/24 05:00 History (Lexapro) ascorbic acid (vitamin C) 500 mg 500 mg PO DAILY Supplement 02/06/23 02/02/24 21:30 History tablet evolocumab 140 mg/mL subcutaneous 140 mg subcut QMONTH [facility] 08/19/23 12/27/23 History pen injector (Kenji Hennessy) metoprolol tartrate 100 mg tablet 150 mg PO DAILY BP 10/07/23 02/03/24 05:00 History rivaroxaban 20 mg tablet (Xarelto) 10 mg PO DAILY Blood Thinner 10/07/23 01/30/24 History acetaminophen 500 mg tablet 1,000 mg (2 x 500 mg) PO Q6 COPD 11/12/23 02/03/24 05:00 Rx #0 tabs fluticasone fur. 100 mcg-umeclid 1 inh inhalation Q24H COPD 12/17/23 02/02/24 History 62.5 mcg-vilant 25 mcg inhalat.powder (Trelegy Ellipta) hydroxyurea 500 mg capsule 1,500 mg PO DAILY Chemo 12/17/23 02/01/24 History ondansetron HCl 8 mg tablet 8 mg PO Q12H PRN nausea and 01/01/24 02/02/24 08:00 History vomiting magnesium oxide 400 mg (241.3 mg 400 mg PO TID SUPPLEMENT 01/16/24 02/03/24 05:00 History magnesium) tablet ferrous sulfate 325 mg (65 mg 325 mg PO DAILY SUPPLEMENT 01/22/24 02/02/24 21:30 History iron) tablet (Feosol) alprazolam 1 mg tablet 1 mg PO QODAY PRN anxiety 02/03/24 02/03/24 05:00 History calcium carbonate (Calcium 600) 600 mg PO DAILY Supplement 02/03/24 02/02/24 21:30 History cholecalciferol (vitamin D3) 50 50 mcg PO DAILY Nutrition 02/03/24 02/02/24 21:30 History mcg (2,000 unit) capsule (Vitamin D3) colestipol 1 gram tablet 1 g PO BID diarrhea 02/03/24 02/03/24 05:00 History oxycodone 5 mg tablet 5 mg PO Q8H PRN PRN Pain Score 02/06/24 Unknown Rx 4-10 5 days #15 tabs Allergy/AdvReac Type Severity Reaction Status Date / Time Penicillins Allergy PT UNSURE Verified 02/03/24 06:22 OF REACTION doxycycline AdvReac Unknown Upset Verified 02/03/24 06:22 Stomach Family History Father Myocardial infarction Mother Colon cancer Surgical History History of cardiac catheterization (~2018) History of heart artery stent (~2018) History of hernia surgery (~2021) H/O kidney removal (~2017) History of bowel resection Hx of tonsillectomy Social History (Updated 02/06/24 @ 14:[address] Leighton Orozco MD) household members: children and other details: Lives with daughter Haydee, who has a , 2 children. Smoking Status: Current some day smoker tobacco type: cigarettes alcohol intake: never substance use type: does not use, former substance user and other details: marijuana ROS Constitutional Constitutional: Reports weakness; Denies chills, fever(s) or weight gain ENT HEENT: Denies headache(s), nasal congestion or nasal discharge Cardiovascular Cardiovascular: Denies chest pain or palpitations Respiratory/Chest Respiratory/Chest: Denies cough, excessive phlegm production or shortness of breath with exertion Gastrointestinal Gastrointestinal: Denies abdominal pain, nausea or vomiting Genitourinary Genitourinary: Denies dysuria Musculoskeletal Musculoskeletal: Denies joint pain or joint swelling Integumentary Integumentary: Denies rash or wounds Neurologic Neurologic: Denies focal weakness, numbness or tingling Psychiatric Psychiatric: Denies anxiety, auditory hallucinations, depression, homicidal ideation or suicidal ideation Vital Signs Vital Signs Vital Signs: 02/06/24 11:26 Temperature 97.8 F Temperature Source Oral Pulse Rate 114 H Respiratory Rate 16 Blood Pressure 130/67 H Blood Pressure Mean 88 Blood Pressure Source Monitor Blood Pressure Position Semi-Fowlers Blood Pressure Location Left Arm Pulse Ox 94 Oxygen Delivery Method Room Air Weight Weight: 83.234 kg Body Mass Index (BMI) 27.1 Physical Exam Const alert General Appearance: cooperative HEENT normocephalic Eyes PERRL and EOMs intact bilaterally Neck supple, no JVD and no carotid bruits Resp normal respiratory effort, normal air movement and clear to auscultation bilaterally Cardio regular rate and regular rhythm GI normal to inspection, nondistended, normoactive bowel sounds, non-tender and non-distended Extremity normal capillary refill General Extremity: Negative for edema Skin no rashes or lesions noted Skin Narrative: Right groin wound VAC. General Skin Exam: no breakdown Psych affect normal Appearance: appropriate Assessment & Plan Assessment/Plan (1) Debility: (2) PAOD (peripheral arterial occlusive disease): (3) Essential (primary) hypertension: (4) Pulmonary embolism: (5) CLL (chronic lymphocytic leukemia): (6) COPD (chronic obstructive pulmonary disease): (7) Depression: (8) GERD (gastroesophageal reflux disease): (9) Hyperlipidemia: PLAN: Plan 68 year old male with below past medical history significant for paod, underwent right common femoral/profunda femoral/superficial femoral endarterectomy sartorius flap 02/03/[address] Boyer, admitted to TCU with debility, here for rehabilitation, strengthening, prior to discharge home with daughter. Debility - PT/OT. Pain - Tylenol 1000mg q6, Oxycodone 5mg q4 prn. Bowel - senna/colace 2 tablets bid prn, Magnesium citrate 300mL po daily prn. Adult immunization - Administer pneumonia vaccine, covid vaccine, flu vaccine as appropriate. DVT prophylaxis - on Xarelto. COPD - Fluticasone/Salmeterol 232-21 1 puff bid, Incruse 1 puff daily, Albuterol 1 puff q4 prn. Anxiety - Xanax 1mg daily prn, stable chronic nursing home use, GDR not recommended. Iron deficiency anemia - Ferrous sulfate 325mg daily, Vitamin C 500mg daily. Calcium deficiency - Calcium 500mg daily. Vitamin D deficiency - D3 50mcg daily. Chronic diarrhea - Colestipol 1gm bid. 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 Hypomagnesemia - Magnesium oxide 400mg tid. Hypertension - Metoprolol 150mg daily. Nausea - Zofran 8mg q12 prn. GERD - Pantoprazole 40mg daily DVT/PE - s/p IVC filter, Xarelto 10mg daily. 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
--- NOTE | 2024-02-06 15:45 | CHAPLAIN ---
Type of Pastoral Visit _x__ Initial Visit ___ Follow-up Visit ___ On-call Visit ___ General Patient Visit ___ Spiritual Assessment ___ Family Conference ___ Bereavement ___ Rapid Response ___ Code Blue ___ Other (describe below) Pastoral Care Referral From _x__ Patient ___ Family _x__ Nurse ___ Physician ___ Screed Person ___ Head Of Ethics And Compliance ___ Other (describe below) Sacrament/Intervention _x__ Active listening ___ Anointing ___ Religion ___ Bereavement ___ Communion _x__ Ashlyn exploration ___ _x__ Life review _x__ Prayer ___ Reconciliation ___ Sacrament of Sick _x__ Supportive presence ___ Wedding ___ Other (describe below) Pastoral Comments phone call referral from staff for this patient that requested visit of this compounding technician; pt has been seen before in previous admissions; pt is welcoming and immediately gives update on his health and recent surgery; pt is encouraged that this surgery will benefit him for walking and life activities; pt also gives more history about past 'failures of doctors' and bad experiences in hospitals; pt does give praise to current medical team and prospects for the future; pt talks about a friend that has come close to and I just can't take another of a friend. 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
--- NOTE | 2024-02-06 15:46 | CASEMGMT ---
Social Work SW met with patient to complete initial assessment. Pt known to this worker from previous stays and remembered this worker by name. Pt immediately expressed gratitude for previous assistance to pt and dtr. SW verified contacts. Pt confirmed code status as full code. Pt has recently moved into dtr's home's basement with a kitchenette, full bathroom with walk-in shower and bedroom. Pt is very grateful for dtr and MARTÍN for opening her home to him. Pt's goal is to return with improved LOF. SW educated to Medicare benefit. Will continue to follow for DC planning. ZHANG SheridanW
[2024-02-06] MEDS: Rivaroxaban 10 MG Tablet PO (17:37)
[2024-02-06 19:20] VITALS: PULSE 80; RESP 18; O2SAT 98
[2024-02-06] MEDS: Ipratropium/Albuterol Sulfate 3 ML AMPUL.NEB INHALATION (19:20)
[2024-02-06] MEDS: Budesonide Respules 0.5 MG/2 ML AMPUL.NEB. INHALATION (19:20)
[2024-02-06] MEDS: Menthol/Lanolin/Calamine/Znox 113 GM Tube 1 APPLIC TOPICAL (20:58)
[2024-02-06] MEDS: Zolpidem Tartrate 5 MG Tablet 10 MG PO (21:01)
[2024-02-06] MEDS: Magnesium Chloride 64 MG Delay Rel.Tablet 128 MG PO (21:04)
[2024-02-06] MEDS: Colestipol 1 GM TABLET PO (21:04)
[2024-02-07] MEDS: ALPRAZolam 0.5 MG Tablet 1 MG PO (00:11)
[2024-02-07] MEDS: Acetaminophen 500 MG Tablet 1000 MG PO ×4 (00:14→18:38)
--- NOTE | 2024-02-07 01:37 | NURSING ---
Patient requests PRN Xanax, educated on risk for sedation due to recent ambien, patient A&OX3, reports ambien as ineffective for sleep, states I've been taking it for years and it doesn't do anything for me, I want my xanax now. PRN Xanax administered as ordered per request
[2024-02-07] MEDS: Magnesium Chloride 64 MG Delay Rel.Tablet 128 MG PO ×3 (06:06→20:51)
[2024-02-07] MEDS: Colestipol 1 GM TABLET PO ×2 (06:06→20:48)
[2024-02-07 06:42] LABS: Absolute Lymphocyte Count 15.04 X10^3/uL (0.83-4.51); Absolute Neutrophil Count 3.9 X10^3/uL (2.0-7.7); Basophil# 0.03 X10^3/uL; Basophil% 0.1 % (0-1); Eosinophil# 0.06 X10^3/uL; Eosinophils% 0.2 % (0-5); Hematocrit 26.2 % (40-54); Hemoglobin 8.2 g/dL (13.0-16.5); Lymphocyte # 15.04 X10^3/ul (0.83-4.51); Lymphocyte % 49.9 % (19-41); Mean Corp Hgb Conc 31.3 g/dL (32-36); Mean Corpuscular Hgb 39.8 pg (27.0-32.0); Mean Corpuscular Volume 127.2 fL (80-94); Mean Platelet Vol. 9.9 fl (6.2-12.0); Monocyte# 11.01 X10^3/uL; Monocyte% 36.6 % (0-10); NRBC Flagged by Analyzer 0 % (0-5); Neutrophil # 3.88 X10^3/uL (2.7-7.7); Neutrophil % 12.9 % (47-70); POSITIVE COUNT YES; POSITIVE DIFFERENTIAL YES; POSITIVE MORPHOLOGY YES; Platelet Count 289 K/mm3 (150-450); RBC Distribution Width CV 20.4 % (11.6-14.6); RBC Distribution Width SD 95.6 fl (35.1-43.9); Red Blood Count 2.06 M/mm3 (4.6-6.2)
[2024-02-07 07:03] LABS: Differential Indicated SCAN CRITERIA MET; White Blood Count 30.1 K/mm3 (4.4-11.0)
--- NOTE | 2024-02-07 07:07 | NURSING ---
Received critical result WBC 30.1 from lab, notified via telephone,WBC improved from 32.8 on 02/06/24. Per Dr. Orozco patient has leukemia.
[2024-02-07 07:17] LABS: Anion Gap 6 (5-15); BUN 27 mg/dL (7-18); BUN/Creat Ratio 15.5 RATIO (10-20); Calcium,Total 10.1 mg/dL (8.5-10.1); Chloride 108 mmol/L (98-107); Creatinine, Serum 1.74 mg/dL (0.70-1.30); EST Glomerular Filtration Rate 41 mL/min (>60); Est Glom Filt Rate - Afr Amer 50 mL/min (>60); Glucose 109 mg/dL (74-106); Potassium 4.1 mmol/L (3.5-5.1); Sodium Level 138 mmol/L (136-145)
--- NOTE | 2024-02-07 08:17 | CPS ---
pt already completed IS and PEP when he was on the floor, does not want to do it again
[2024-02-07] MEDS: Calcium (Elemental) 500 MG Tablet PO (08:19)
[2024-02-07 08:20] VITALS: PULSE 100
[2024-02-07] MEDS: Menthol/Lanolin/Calamine/Znox 113 GM Tube 1 APPLIC TOPICAL ×2 (08:20→20:48)
[2024-02-07] MEDS: Pantoprazole Sodium 40 MG Tablet PO (08:20)
[2024-02-07] MEDS: Metoprolol Tartrate 50 MG Tablet 150 MG PO (08:20)
[2024-02-07] MEDS: Cholecalciferol (VIT D3) 25 MCG TABLET (1,000 UNITS) 50 MCG PO (08:20)
[2024-02-07] MEDS: Ascorbic Acid 500 MG Tablet PO (08:20)
[2024-02-07] MEDS: Escitalopram Oxalate 10 MG Tablet 5 MG PO (08:20)
[2024-02-07 09:36] LABS: Differential Comment SCANNED; Platelet Estimate ADEQUATE (ADEQ); Smudge Cells 2+
[2024-02-07 09:37] LABS: Anisocytosis 3+; Macrocytosis 3+; Ovalocyte 2+; Polychromasia 1+; Tear Drop Cell 2+
[2024-02-07] MEDS: Tuberculin,Purif.prot.deriv. 50 TU/ML Vial 0.1 ML ID (11:14)
[2024-02-07 13:14] VITALS: BP 120/78; PULSE 100; RESP 18; TEMP 36.3; O2SAT 95
[2024-02-07] MEDS: Ferrous Sulfate 325 MG Tablet PO (13:29)
[2024-02-07] MEDS: oxyCODONE 5 MG Tablet PO (14:07)
--- NOTE | 2024-02-07 14:16 | NURSING ---
New orders per Dr. Orozco to recheck HH on 02/08 due to Hemoglobin of 8.2 on 02/06.
--- NOTE | 2024-02-07 17:23 | NURSING ---
Addendum entered by Parker Gamble 02/07/24 17:25: New orders for Levaquin 750mg Daily for 7 days Original Note: New orders per Dr. Orozco for MRI or Head and Neck due too R ear pain and history of mastoiditis.
[2024-02-07] MEDS: Rivaroxaban 10 MG Tablet PO (18:37)
[2024-02-07] MEDS: metroNIDAZOLE 500 MG Tablet PO ×2 (18:38→20:49)
[2024-02-07] MEDS: Cefdinir 300 MG Capsule PO (20:51)
[2024-02-08] MEDS: oxyCODONE 5 MG Tablet PO ×3 (02:04→20:45)
[2024-02-08] MEDS: Magnesium Chloride 64 MG Delay Rel.Tablet 128 MG PO ×3 (06:25→20:40)
[2024-02-08] MEDS: Acetaminophen 500 MG Tablet 1000 MG PO ×3 (06:25→18:09)
[2024-02-08] MEDS: Colestipol 1 GM TABLET PO ×2 (06:26→20:40)
[2024-02-08] MEDS: metroNIDAZOLE 500 MG Tablet PO ×3 (06:26→20:39)
[2024-02-08] MEDS: Albuterol IH (6.7 GM) 1 PUFF INHALER INHALATION (08:39)
[2024-02-08] MEDS: Menthol/Lanolin/Calamine/Znox 113 GM Tube 1 APPLIC TOPICAL ×2 (08:39→20:45)
[2024-02-08] MEDS: Cholecalciferol (VIT D3) 25 MCG TABLET (1,000 UNITS) 50 MCG PO (08:41)
[2024-02-08] MEDS: Pantoprazole Sodium 40 MG Tablet PO (08:41)
[2024-02-08] MEDS: Calcium (Elemental) 500 MG Tablet PO (08:41)
[2024-02-08] MEDS: Ascorbic Acid 500 MG Tablet PO (08:42)
[2024-02-08 08:43] VITALS: BP 139/77; PULSE 99
[2024-02-08] MEDS: Metoprolol Tartrate 50 MG Tablet 150 MG PO (08:43)
[2024-02-08] MEDS: Escitalopram Oxalate 10 MG Tablet 5 MG PO (08:43)
[2024-02-08] MEDS: Cefdinir 300 MG Capsule PO ×2 (08:49→20:40)
[2024-02-08 10:00] VITALS: RESP 18
[2024-02-08] MEDS: Ferrous Sulfate 325 MG Tablet PO (11:46)
[2024-02-08] MEDS: ALPRAZolam 0.5 MG Tablet 1 MG PO (12:21)
[2024-02-08 13:11] VITALS: PULSE 85; RESP 16
[2024-02-08] MEDS: Budesonide Respules 0.5 MG/2 ML AMPUL.NEB. INHALATION (13:11)
[2024-02-08] MEDS: Ipratropium/Albuterol Sulfate 3 ML AMPUL.NEB INHALATION ×2 (13:11→19:15)
[2024-02-08 14:22] VITALS: BP 111/67; PULSE 73; RESP 18; TEMP 36.2; O2SAT 97
[2024-02-08 14:47] VITALS: BP 111/67; PULSE 73; RESP 18; TEMP 36.2; O2SAT 97
[2024-02-08] MEDS: Ensure Plus High Protein 120 ML LIQUID PO (18:09)
[2024-02-08] MEDS: Rivaroxaban 10 MG Tablet PO (18:09)
[2024-02-08 19:15] VITALS: PULSE 86; RESP 18
[2024-02-08] MEDS: Zolpidem Tartrate 5 MG Tablet 10 MG PO (20:44)
[2024-02-09 06:07] LABS: Hematocrit 26.5 % (40-54); Hemoglobin 8.3 g/dL (13.0-16.5)
[2024-02-09] MEDS: Colestipol 1 GM TABLET PO ×2 (06:23→20:48)
[2024-02-09] MEDS: Magnesium Chloride 64 MG Delay Rel.Tablet 128 MG PO ×3 (06:24→20:48)
[2024-02-09] MEDS: metroNIDAZOLE 500 MG Tablet PO ×3 (06:24→20:49)
[2024-02-09] MEDS: Acetaminophen 500 MG Tablet 1000 MG PO ×4 (06:24→23:01)
[2024-02-09] MEDS: Ipratropium/Albuterol Sulfate 3 ML AMPUL.NEB INHALATION (07:34)
[2024-02-09 07:35] VITALS: PULSE 110; RESP 18
[2024-02-09] MEDS: Budesonide Respules 0.5 MG/2 ML AMPUL.NEB. INHALATION (07:35)
--- NOTE | 2024-02-09 08:41 | NURSING ---
Customer Training Specialist Note; Activity Asset: Complete Siva has returned to TCU for continued therapy and remains independent in his choice of daily activities. He continues to read, Watch tv, use his smartphone, visits w/family and friends. He welcomes visits w/the plant utilities engineer and therapy dog when available. He prefers in room independent activities over group however enjoys talking w/staff. Staff will continue to remind him of weekly activities and respect his right to say no.
[2024-02-09] MEDS: Ascorbic Acid 500 MG Tablet PO (08:54)
[2024-02-09] MEDS: Menthol/Lanolin/Calamine/Znox 113 GM Tube 1 APPLIC TOPICAL ×2 (08:54→20:45)
[2024-02-09] MEDS: Calcium (Elemental) 500 MG Tablet PO (08:54)
[2024-02-09] MEDS: Escitalopram Oxalate 10 MG Tablet 5 MG PO (08:55)
[2024-02-09 08:56] VITALS: BP 107/78; PULSE 120
[2024-02-09] MEDS: Cefdinir 300 MG Capsule PO ×2 (08:56→20:49)
[2024-02-09] MEDS: Pantoprazole Sodium 40 MG Tablet PO (08:56)
[2024-02-09] MEDS: Metoprolol Tartrate 50 MG Tablet 150 MG PO (08:56)
[2024-02-09] MEDS: Cholecalciferol (VIT D3) 25 MCG TABLET (1,000 UNITS) 50 MCG PO (08:56)
[2024-02-09 09:00] VITALS: BP 107/78; PULSE 120; O2SAT 93
--- NOTE | 2024-02-09 09:32 | NURSING ---
PATIENT REQUESTING DOPPLER ON FEET. REFUSED STAFF TO APPLY DENNIS TO BUTTOCKS- STATES HE WILL DO IT HIMSELF. PATIENT ALSO NOTED TO BE UP WITHOUT WALKER IN ROOM-EDUCATION PROVIDED. PATIENT VERBALLY AGITATED AND SHORT WITH STAFF. PERSONAL SPACE PROVIDED.
[2024-02-09 10:00] VITALS: PULSE 85; RESP 18; O2SAT 96
[2024-02-09] MEDS: Ferrous Sulfate 325 MG Tablet PO (11:23)
--- NOTE | 2024-02-09 11:24 | NURSING ---
Resident requesting nursing use doppler to let him hear pedal pulses. Pulses heard on both feet using doppler, less audible on right compared to left. He denies any sensation changes to RLE. Both legs pink and warm with slightly cool toes. Resident immediately frustrated after hearing doppler, said meseret Edmonds up here. Reports it took 2 years for a doctor to do anything. RN asked about follow-up with vascular, he wasn't sure. Reviewed Monisha Edmonds's note then went back to discuss with resident. He said he'd called the vascular office and asked for the PA or physician to come see him tomorrow. This RN called office, spoke with staff that confirmed she had received call from resident, and clarified follow-up appt on 02/25/24 at 1000.
--- NOTE | 2024-02-09 12:00 | NURSING ---
Offered covid vaccine, VIS provided. Resident refuses at this time.
[2024-02-09 14:19] LABS: Pathologist Review Reviewed
[2024-02-09 15:20] VITALS: RESP 16; TEMP 36.7
[2024-02-09] MEDS: Rivaroxaban 10 MG Tablet PO (17:22)
--- NOTE | 2024-02-09 17:38 | NURSING ---
PATIENT TAKEN FOR A MRI AT 1735 VIA WHEELCHAIR.
--- NOTE | 2024-02-09 18:21 | NURSING ---
PATIENT RETURNED FROM MRI AT 1818.
--- NOTE | 2024-02-09 18:22 | NURSING ---
PATIENT VERBALLY UPSET R/G MRI. STATES I WAS LIED TO AGAIN. PATIENT STATED MRI STAFF TOLD HIM DR GARNICA ORDERED A DIFFERENT MRI. PATIENT STATED WHEN I SEE DR GARNICA, IM GOING TO KICK HIM IN THE BALLS. PATIENT REQUESTED PERSONAL SPACE.
--- NOTE | 2024-02-09 18:37 | NURSING ---
CT CALLED AND STATED PT CALLED THEM AND STATED I SEE I HAVE A APPOINTMENT TOMORROW THAT I KNOW NOTHING ABOUT. CT STATED TO THIS NURSE THAT PUT THE ORDER IN FOR A CT OF THE CHEST W/O CONTRAST AND HANS GO OUT TO PT TO REMIND THE PT OF APPOINTMENTS AND DID NOT REALIZE THAT THE PT WAS HERE AT THE HOSPITAL AND STATED THEY COULD DO IT TONIGHT. THIS NURSE WENT TO PT ROOM AND ASKED IF HE CALLED CT,PT STATED YES AND I WANT TO KNOW WHY AND WHO ORDERED THIS TEST. THIS NURSE EXPLAINED TO PT EXACTLY WHAT CT SAID AND THAT THEY COULD DO IT TONIGHT OR HE COULD WAIT TILL TOMORROW. PT STATED I WILL DO IT TOMORROW AND CALL MY DAUGHTER TO FIND OUT WHAT TOLD HER. NOW LEAVE MY ROOM AND SHUT THE DOOR. CALLED CT AND STATED PT SAID HE WOULD DO IT TOMORROW. RN AWARE
[2024-02-09] MEDS: ALPRAZolam 0.5 MG Tablet 1 MG PO (20:59)
[2024-02-09] MEDS: Zolpidem Tartrate 5 MG Tablet 10 MG PO (21:00)
--- NOTE | 2024-02-09 21:07 | NURSING ---
Patient pleasant, took HS meds with out issues. Had complaints about exams he had today.
[2024-02-10] MEDS: Magnesium Chloride 64 MG Delay Rel.Tablet 128 MG PO ×3 (05:44→20:57)
[2024-02-10] MEDS: Acetaminophen 500 MG Tablet 1000 MG PO ×3 (05:44→17:08)
[2024-02-10] MEDS: Colestipol 1 GM TABLET PO ×2 (05:44→20:58)
[2024-02-10] MEDS: metroNIDAZOLE 500 MG Tablet PO ×3 (05:44→20:58)
--- NOTE | 2024-02-10 06:50 | CPS ---
Pt continues to refused aerosols, doesn't want bothered.
--- NOTE | 2024-02-10 07:52 | PCM.PN.DRR ---
Documented by User: Delaney Frank 02/10/24 09:26 TCU RX Drug Regimen Review Subjective/Objective Subjective/Objective: Subjective: TCU Admission. 68 YOM underwent right common femoral/profunda femoral/superficial femoral endarterectomy sartorius flap 02/03/[address] Boyer. Admitted to TCU with debility for strengthening and rehabilitation. Objective: Allergies Penicillins Allergy (Verified 02/03/24 06:22) PT UNSURE OF REACTION Occurred in childhood ~ 8 y.o doxycycline Adverse Reaction (Unknown, Verified 02/03/24 06:22) Upset Stomach Current Medications Generic Name Dose Route Start Last Admin Trade Name Freq PRN Reason Stop Dose Admin Acetaminophen 1,000 mg 02/06/24 13:30 02/10/24 05:44 Acetaminophen 500 Mg Tablet PO 1,000 mg Q6 FELICITY Administration Albuterol Sulfate 1 puff 02/06/24 15:02 02/08/24 08:39 Albuterol Ih (6.7 Gm) 1 Puff Inhaler INHALATION 1 puff Q4H PRN Administration shortness of breath or wheezing Albuterol/Ipratropium 3 ml 02/09/24 17:15 Ipratropium/Albuterol Sulfate 3 Ml Ampul.Neb INHALATION BID.RT FELICITY Alprazolam 1 mg 02/06/24 14:34 02/09/24 20:59 Alprazolam 0.5 Mg Tablet PO 1 mg DAILY PRN Administration ANXIETY/RESTLESSNESS/SLEEP Ascorbic Acid 500 mg 02/07/24 08:00 02/09/24 08:54 Ascorbic Acid 500 Mg Tablet PO 500 mg BREAKFAST FELICITY Administration Budesonide 0.5 mg 02/06/24 15:05 02/09/24 07:35 Budesonide Respules 0.5 Mg/2 Ml Ampul.Neb. INHALATION 0.5 mg Q12H.RT FELICITY Administration Calamine/Phenol 1 applic 02/06/24 22:00 02/09/24 20:45 Menthol/Lanolin/Calamine/Znox 113 Gm Tube TOPICAL 1 applic BID FELICITY Administration Protocol Calcium Carbonate 500 mg 02/07/24 08:00 02/09/24 08:54 Calcium (Elemental) 500 Mg Tablet PO 500 mg BREAKFAST FELICITY Administration Cefdinir 300 mg 02/07/24 22:00 02/09/24 20:49 Cefdinir 300 Mg Capsule PO 02/21/24 22:01 300 mg Q12 [facility] Administration Cholecalciferol 50 mcg 02/07/24 10:00 02/09/24 08:56 Cholecalciferol (Vit D3) 25 Mcg Tablet (1,000 Units) PO 50 mcg DAILY [facility] Administration Colestipol HCl 1 gm 02/06/24 22:00 02/10/24 05:44 Colestipol 1 Gm Tablet PO 1 gm 0600,2200 [facility] Administration Escitalopram Oxalate 5 mg 02/07/24 10:00 02/09/24 08:55 Escitalopram Oxalate 10 Mg Tablet PO 5 mg DAILY [facility] Administration Ferrous Sulfate 325 mg 02/07/24 12:00 02/09/24 11:23 Ferrous Sulfate 325 Mg Tablet PO 325 mg LUNCH [facility] Administration Hydroxyurea 1,500 mg 02/10/24 10:00 Hydroxyurea 500 Mg Capsule PO DAILY [facility] Magnesium Chloride 128 mg 02/06/24 22:00 02/10/24 05:44 Magnesium Chloride 64 Mg Delay Rel.Tablet PO 128 mg TID [facility] Administration Magnesium Citrate 300 ml 02/06/24 14:34 Magnesium Citrate 300 Ml PO DAILY PRN Constipation Metoprolol Tartrate 150 mg 02/07/24 10:00 02/09/24 08:56 Metoprolol Tartrate 50 Mg Tablet PO 150 mg DAILY [facility] Administration Protocol Metronidazole 500 mg 02/07/24 18:15 02/10/24 05:44 Metronidazole 500 Mg Tablet PO 02/21/24 18:16 500 mg TID [facility] Administration Nutritional Formula (Lactose Free) 120 ml 02/08/24 17:45 02/09/24 17:21 Ensure Plus High Protein 120 Ml Liquid PO Not Given TIDCM [facility] Ondansetron HCl 8 mg 02/06/24 11:45 Ondansetron 8 Mg Tablet PO BID PRN PRN nausea and vomiting Oxycodone HCl 5 mg 02/06/24 14:34 02/08/24 20:45 Oxycodone 5 Mg Tablet PO 5 mg Q4H PRN PRN Administration Pain Score 4-10 Pantoprazole Sodium 40 mg 02/07/24 10:00 02/09/24 08:56 Pantoprazole Sodium 40 Mg Tablet PO 40 mg DAILY [facility] Administration Rivaroxaban 10 mg 02/06/24 17:00 02/09/24 17:22 Rivaroxaban 10 Mg Tablet PO 10 mg DINNER FELICITY Administration Senna/Docusate Sodium 2 tablet 02/06/24 14:34 Senna/Docusate Sodium 1 Tablet PO BID PRN PRN Constipation Tuberculin PPD 0.1 ml 02/14/24 10:00 Tuberculin,Purif.Prot.Deriv. 50 Tu/Ml Vial ID 02/14/24 10:01 X1 ONE Zolpidem Tartrate 10 mg 02/06/24 11:45 02/09/24 21:00 Zolpidem Tartrate 5 Mg Tablet PO 10 mg QHS PRN PRN Administration sleep Problem List Hyperlipidemia (Acute) Depression (Acute) Pulmonary embolism (Acute) PAOD (peripheral arterial occlusive disease) (Chronic) GERD (gastroesophageal reflux disease) (Acute) Essential (primary) hypertension (Acute) Debility (Acute) CLL (chronic lymphocytic leukemia) (Chronic) COPD (chronic obstructive pulmonary disease) (Chronic) Vital Signs Temp Pulse Resp BP Pulse Ox O2 Del Method 98.1 F 85 16 107/78 96 Room Air 02/09/24 15:20 02/09/24 10:00 02/09/24 15:20 02/09/24 09:00 02/09/24 10:00 02/09/24 10:00 Oxygen Delivery Method Room Air Weight: 83.234 kg Body Mass Index (BMI) 27.1 Sodium 138 mmol/L (136-145) 02/07/24 06:03 Potassium 4.1 mmol/L (3.5-5.1) 02/07/24 06:03 Chloride 108 mmol/L (98-107) H 02/07/24 06:03 Carbon Dioxide 24.0 mmol/L (21.0-32.0) 02/07/24 06:03 Anion Gap 6 (5-15) 02/07/24 06:03 BUN 27 mg/dL (7-18) H 02/07/24 06:03 Creatinine 1.74 mg/dL (0.70-1.30) H 02/07/24 06:03 Est GFR (MDRD) Af Amer 50 mL/min (>60) L 02/07/24 06:03 Est GFR (MDRD) Non-Af 41 mL/min (>60) L 02/07/24 06:03 BUN/Creatinine Ratio 15.5 RATIO (10-20) 02/07/24 06:03 Glucose 109 mg/dL (74-106) H 02/07/24 06:03 Assessment/Plan: 1. Pain: acetaminophen 1000mg PO Q6 and oxycodone 5mg PO Q4H PRN pain 4-10. Resident has had 4 doses of oxycodone for pain scores of 4-6 in the ear. Please continue to monitor for increased pain, PRN usage, constipation and respiratory depression. 2. Bowel: senna/docusate 2T PO BID PRN constipation, magnesium citrate 300mL PO daily PRN constipation and colestipol 1gm PO BID. No PRN doses have been given. Please continue to monitor for constipation, diarrhea and PRN usage. Last documented bowel movement was 02/08. 3. Hypertension: metoprolol tartrate 150mg PO daily. Please continue to monitor BP (last 107/78) and HR (last 85). 4. DVT/PE: rivaroxaban 10mg PO daily. Please continue to monitor for S/S of bleeding/VTE and hemoglobin (last 8.3g/dL). 5. GERD: pantoprazole 40mg PO daily. Please continue to monitor for S/S of GERD, diarrhea (BEERs medication) and magnesium. 6. COPD: Duoneb 3mL inhalation BID, budesonide 0.5mg inhalation BID and albuterol MDI 1puff inhalation Q4H PRN shortness of breath/wheezing. Please continue to monitor for SOB, wheezing, PRN usage, thrush and HR. Resident has had 1 dose of albuterol. 7. Iron deficiency anemia: ferrous sulfate 325mg PO daily and ascorbic acid 500mg PO daily. Please continue to monitor hemoglobin (last 8.3g/dL), constipation, dark stools and iron studies (last 12/17/23). 8. Nausea: ondansetron 8mg PO Q12 PRN nausea and vomiting. Resident has not used on PRN doses. Please continue to monitor for nausea and PRN usage. 9. Calcium/vitamin D deficiencies and hypomagnesemia: calcium carbonate 500mg PO daily, cholecalciferol 50mcg PO daily, magnesium chloride 128mg PO TID. Please continue to monitor calcium (last 10.1mg/dL), vitamin D (last 01/12/24) and magnesium (last 1.5mg/dL 01/22/24). 10. CLL: hydroxyurea 1500mg PO daily. Please continue to monitor for secondary malignancy (black box warning), CBC, GI upset, and dizziness. 11. Mastoiditis: cefdinir 300mg PO BID thru 02/21/24 and metronidazole 500mg PO TID thru 02/21/24. Please continue to monitor for S/S of infection, stool discoloration, WBC, renal function, diarrhea and metallic taste. Assessment/Plan for indications treated with psychotropic medications: 1. Anxiety/restlessness/sleep: alprazolam 1mg PO daily PRN anxiety/restlessness/sleep. Please see physician note regarding GDR. Resident has had 3 doses. Please continue to monitor for PRN usage, anxiety, restlessness, sleep, falls/fractures (BEERs), confusion, dementia/delirium (BEERs). 2. Depression: escitalopram 5mg PO daily. Please see physician note regarding GDR. Please continue to monitor for suicidal ideation (black box warning), falls/fractures (BEERs), confusion and sodium (last 138mmol/L). 3. Insomnia: zolpidem 10mg PO QHS PRN insomnia. Please see physician note regarding GDR. Resident has had 3 doses. Please continue to monitor for PRN usage, excessive daytime drowsiness, complex sleep-related behaviors (black box, e.g. eating while sleeping), dementia/delirium (BEERs) and falls/fractures (BEERs). Medical chart and medication regimen reviewed. The following medication irregularities or issues were identified: 1. Alprazolam and zolpidem have duplications for PRN sleep. Please consider adding instructions for which to give first line insomnia versus second line. Thanks. Date Date of Note:: 02/10/24 Documented by User: Dr. Leighton Orozco MD 02/10/24 08:07 TCU RX Drug Regimen Review Provider Comments Provider responsibility Provider Comments to Recommendations by Pharmacy: Agree
[2024-02-10] MEDS: Menthol/Lanolin/Calamine/Znox 113 GM Tube 1 APPLIC TOPICAL ×2 (09:30→21:01)
[2024-02-10] MEDS: Ascorbic Acid 500 MG Tablet PO (09:30)
[2024-02-10] MEDS: Calcium (Elemental) 500 MG Tablet PO (09:30)
[2024-02-10] MEDS: Cefdinir 300 MG Capsule PO ×2 (09:31→20:57)
[2024-02-10] MEDS: Pantoprazole Sodium 40 MG Tablet PO (09:31)
[2024-02-10] MEDS: Escitalopram Oxalate 10 MG Tablet 5 MG PO (09:31)
[2024-02-10] MEDS: Cholecalciferol (VIT D3) 25 MCG TABLET (1,000 UNITS) 50 MCG PO (09:31)
[2024-02-10 09:35] VITALS: PULSE 109
[2024-02-10] MEDS: Metoprolol Tartrate 50 MG Tablet 150 MG PO (09:35)
--- NOTE | 2024-02-10 09:41 | MDS.RN ---
Discussed MRI with resident, he wants Dr. Lainez to see MRI before scheduling an appt. Called [facility], updated them on MRI and they asked it be faxed to #[phone]. MRI report faxed.
--- NOTE | 2024-02-10 10:29 | NURSING ---
Verbal order from Dr. Orozco to complete neck MRI no contrast. Order faxed to MRI.
[2024-02-10 10:48] VITALS: BP 148/87; PULSE 109; RESP 18; TEMP 36.5; O2SAT 99
[2024-02-10 11:12] VITALS: BMI 26.6
--- NOTE | 2024-02-10 11:55 | NURSING ---
Wound vac removed today per order. Minimal drainage noted at the distal end of incision, DSD applied.
[2024-02-10] MEDS: Ferrous Sulfate 325 MG Tablet PO (12:07)
[2024-02-10] MEDS: Rivaroxaban 10 MG Tablet PO (17:08)
[2024-02-10] MEDS: Zolpidem Tartrate 5 MG Tablet 10 MG PO (20:57)
[2024-02-10] MEDS: Hydroxyurea 500 MG Capsule 1500 MG PO (20:58)
[2024-02-10] MEDS: cycloBENZAPRine HCl 10 MG Tablet PO (20:58)
[2024-02-11] MEDS: Acetaminophen 500 MG Tablet 1000 MG PO ×3 (06:46→17:32)
[2024-02-11] MEDS: cycloBENZAPRine HCl 10 MG Tablet PO ×3 (06:47→20:18)
[2024-02-11] MEDS: Colestipol 1 GM TABLET PO ×2 (06:47→20:16)
[2024-02-11] MEDS: Magnesium Chloride 64 MG Delay Rel.Tablet 128 MG PO ×3 (06:47→20:14)
[2024-02-11] MEDS: metroNIDAZOLE 500 MG Tablet PO ×3 (06:47→20:18)
--- NOTE | 2024-02-11 08:36 | NURSING ---
Spoke with Dr. Lainez's staff, they will have him look at both MRI results then his nurse will call TCU. Cervical spine MRI results faxed to office at [phone].
[2024-02-11] MEDS: Ascorbic Acid 500 MG Tablet PO (09:47)
[2024-02-11] MEDS: Calcium (Elemental) 500 MG Tablet PO (09:47)
[2024-02-11] MEDS: Escitalopram Oxalate 10 MG Tablet 5 MG PO (09:48)
[2024-02-11 09:49] VITALS: BP 104/72; PULSE 101
[2024-02-11] MEDS: Metoprolol Tartrate 50 MG Tablet 150 MG PO (09:49)
[2024-02-11] MEDS: Cefdinir 300 MG Capsule PO ×2 (09:49→20:17)
[2024-02-11] MEDS: Cholecalciferol (VIT D3) 25 MCG TABLET (1,000 UNITS) 50 MCG PO (09:50)
[2024-02-11] MEDS: Pantoprazole Sodium 40 MG Tablet PO (09:50)
[2024-02-11] MEDS: Menthol/Lanolin/Calamine/Znox 113 GM Tube 1 APPLIC TOPICAL ×2 (09:55→20:12)
[2024-02-11 09:59] VITALS: BP 104/72; PULSE 101; O2SAT 96
[2024-02-11 10:00] VITALS: PULSE 74; RESP 18; O2SAT 94
[2024-02-11] MEDS: Ferrous Sulfate 325 MG Tablet PO (11:45)
[2024-02-11 13:17] VITALS: RESP 19; TEMP 36.2
--- NOTE | 2024-02-11 14:08 | NURSING ---
Addendum entered by Kayley Yu 02/11/24 14:47: Call back from Padmaja that per Dr. Lainez he doesn't need to see resident now, can wait til after DC for his previously scheduled appt. Original Note: Call from Padmaja from Dr. Lainez's office. She called to clarify why RN had called. Discussed 2 new MRI's and that resident was insistent that he didn't want appointment made until Dr. Lainez reviewed MRIs and thought an appt was necessary. She will have Dr. Lainez review scans and call back if he wants to see resident before his next scheduled appt in April.
--- NOTE | 2024-02-11 16:07 | NURSING ---
PT CALLED [facility] AND ASKED ABOUT HIS STITCHES ON TOP OF HEAD. THIS NURSE HEARD MESSAGE LEFT ON PT PHONE FROM [facility] THAT IT WAS OK FOR STAFF TO TAKE OUT PT STITCHES. THIS NURSE TOOK STITCHES OUT. AREA WELL APPROXIMATED,CLEAN AND DRY. PT TOLERATED WELL. RN AWARE
[2024-02-11] MEDS: Rivaroxaban 10 MG Tablet PO (17:32)
[2024-02-11] MEDS: Nystatin Powder 15gm Bottle 1 APPLIC TOPICAL (20:11)
[2024-02-11] MEDS: Hydroxyurea 500 MG Capsule 1500 MG PO (20:15)
[2024-02-11] MEDS: Zolpidem Tartrate 5 MG Tablet 10 MG PO (20:29)
[2024-02-12] MEDS: Magnesium Chloride 64 MG Delay Rel.Tablet 128 MG PO ×3 (06:31→21:29)
[2024-02-12] MEDS: cycloBENZAPRine HCl 10 MG Tablet PO ×3 (06:32→21:28)
[2024-02-12] MEDS: Acetaminophen 500 MG Tablet 1000 MG PO ×3 (06:32→17:32)
[2024-02-12] MEDS: metroNIDAZOLE 500 MG Tablet PO ×3 (06:32→21:28)
[2024-02-12] MEDS: Colestipol 1 GM TABLET PO ×2 (06:32→21:27)
[2024-02-12] MEDS: Albuterol IH (6.7 GM) 1 PUFF INHALER INHALATION (07:39)
[2024-02-12] MEDS: Calcium (Elemental) 500 MG Tablet PO (10:41)
[2024-02-12] MEDS: Ascorbic Acid 500 MG Tablet PO (10:41)
[2024-02-12] MEDS: Menthol/Lanolin/Calamine/Znox 113 GM Tube 1 APPLIC TOPICAL ×2 (10:42→21:25)
[2024-02-12] MEDS: Nystatin Powder 15gm Bottle 1 APPLIC TOPICAL ×2 (10:42→21:26)
[2024-02-12] MEDS: Escitalopram Oxalate 10 MG Tablet 5 MG PO (10:43)
[2024-02-12 10:44] VITALS: BP 130/84; PULSE 120
[2024-02-12] MEDS: Metoprolol Tartrate 50 MG Tablet 150 MG PO (10:44)
[2024-02-12 10:45] VITALS: PULSE 120; RESP 18; O2SAT 97
[2024-02-12] MEDS: Cefdinir 300 MG Capsule PO ×2 (10:46→21:30)
[2024-02-12] MEDS: Pantoprazole Sodium 40 MG Tablet PO (10:46)
[2024-02-12] MEDS: Cholecalciferol (VIT D3) 25 MCG TABLET (1,000 UNITS) 50 MCG PO (10:47)
[2024-02-12 10:56] VITALS: BP 130/84; PULSE 120; O2SAT 97
[2024-02-12] MEDS: Ferrous Sulfate 325 MG Tablet PO (11:33)
--- NOTE | 2024-02-12 11:40 | CASEMGMT ---
Social Work Plan of care meeting held today with pt and pt's daughter Raine present. Pt is progressing well with PT/OT. Pt will need to complete flight of stairs efficiently prior to return home where he lives with his daughter in a basement apartment. Pt would like out patient therapy at [facility] at time of discharge and information regarding the hospital van provided to pt. Pt has all needed DME. SW provided pt/family written communication on insurance process and copay coverage during stay. YUMIKO will continue to follow for dc planning. AMOR Putnam
--- NOTE | 2024-02-12 12:03 | MDS.RN ---
Pain interview for MDS complete.
--- NOTE | 2024-02-12 13:45 | NURSING ---
PT LEFT FLOOR AT 1325 BY WHEEL CHAIR WITH DAUGHTER TO APPOINTMENT WITH AT 1345.
--- NOTE | 2024-02-12 15:25 | NURSING ---
PT RETURNED FROM APPOINTMENT WITH AT 1500 WITH DAUGHTER. NO NEW ORDERS AT THIS TIME.
[2024-02-12 15:39] VITALS: RESP 18; TEMP 36
--- NOTE | 2024-02-12 15:47 | CHAPLAIN ---
Type of Pastoral Visit ___ Initial Visit ___ Follow-up Visit ___ On-call Visit ___ General Patient Visit ___ Spiritual Assessment ___ Family Conference ___ Bereavement ___ Rapid Response ___ Code Blue ___ Other (describe below) Pastoral Care Referral From ___ Patient ___ Family ___ Nurse ___ Physician ___ Name Plate Stamping Machine Operator ___ Cardiac Monitor Technician ___ Other (describe below) Sacrament/Intervention ___ Active listening ___ Anointing ___ Scientology ___ Bereavement ___ Communion ___ Ashlyn exploration ___ ___ Life review ___ Prayer ___ Reconciliation ___ Sacrament of Sick ___ Supportive presence ___ Wedding ___ Other (describe below) Pastoral Comments attempted a visit twice today but patient was out of the room
[2024-02-12] MEDS: Budesonide Respules 0.5 MG/2 ML AMPUL.NEB. INHALATION (15:52)
[2024-02-12] MEDS: Ipratropium/Albuterol Sulfate 3 ML AMPUL.NEB INHALATION (15:52)
[2024-02-12 16:04] VITALS: PULSE 78; RESP 18; O2SAT 98
--- NOTE | 2024-02-12 16:17 | CASEMGMT ---
BIMS (03/28) and PHQ9 () interviews completed on this date for MDS assessment. AMOR Putnam
[2024-02-12] MEDS: Rivaroxaban 10 MG Tablet PO (17:31)
[2024-02-12] MEDS: Hydroxyurea 500 MG Capsule 1500 MG PO (21:29)
[2024-02-12] MEDS: Zolpidem Tartrate 5 MG Tablet 10 MG PO (21:31)
[2024-02-13] MEDS: Acetaminophen 500 MG Tablet 1000 MG PO ×4 (00:57→17:14)
[2024-02-13] MEDS: Colestipol 1 GM TABLET PO ×2 (06:19→21:28)
[2024-02-13] MEDS: Magnesium Chloride 64 MG Delay Rel.Tablet 128 MG PO ×3 (06:19→21:28)
[2024-02-13] MEDS: cycloBENZAPRine HCl 10 MG Tablet PO ×3 (06:21→21:29)
[2024-02-13] MEDS: metroNIDAZOLE 500 MG Tablet PO ×3 (06:21→21:28)
[2024-02-13 07:44] LABS: Absolute Lymphocyte Count 21.22 X10^3/uL (0.83-4.51); Absolute Neutrophil Count 4.1 X10^3/uL (2.0-7.7); Basophil# 0.03 X10^3/uL; Basophil% 0.1 % (0-1); Eosinophil# 0.04 X10^3/uL; Eosinophils% 0.1 % (0-5); Hematocrit 26.9 % (40-54); Hemoglobin 8.3 g/dL (13.0-16.5); Lymphocyte # 21.22 X10^3/ul (0.83-4.51); Mean Corp Hgb Conc 30.9 g/dL (32-36); Mean Corpuscular Hgb 39.2 pg (27.0-32.0); Mean Corpuscular Volume 126.9 fL (80-94); Mean Platelet Vol. 9.4 fl (6.2-12.0); Monocyte# 9.85 X10^3/uL; Monocyte% 27.9 % (0-10); NRBC Flagged by Analyzer 0.1 % (0-5); Neutrophil # 4.08 X10^3/uL (2.7-7.7); Neutrophil % 11.5 % (47-70); POSITIVE COUNT YES; POSITIVE DIFFERENTIAL YES; POSITIVE MORPHOLOGY YES; Platelet Count 345 K/mm3 (150-450); RBC Distribution Width CV 19.9 % (11.6-14.6); RBC Distribution Width SD 91.6 fl (35.1-43.9); Red Blood Count 2.12 M/mm3 (4.6-6.2)
[2024-02-13] MEDS: Cholecalciferol (VIT D3) 25 MCG TABLET (1,000 UNITS) 50 MCG PO (07:58)
[2024-02-13 08:00] LABS: Differential Indicated SCAN CRITERIA MET; White Blood Count 35.4 K/mm3 (4.4-11.0)
[2024-02-13] MEDS: Calcium (Elemental) 500 MG Tablet PO (08:02)
[2024-02-13] MEDS: Escitalopram Oxalate 10 MG Tablet 5 MG PO (08:02)
[2024-02-13] MEDS: Ascorbic Acid 500 MG Tablet PO (08:02)
[2024-02-13] MEDS: Pantoprazole Sodium 40 MG Tablet PO (08:02)
[2024-02-13 08:03] VITALS: BP 132/85; PULSE 94
[2024-02-13] MEDS: Nystatin Powder 15gm Bottle 1 APPLIC TOPICAL ×2 (08:03→21:27)
[2024-02-13] MEDS: Metoprolol Tartrate 50 MG Tablet 150 MG PO (08:03)
[2024-02-13] MEDS: Cefdinir 300 MG Capsule PO ×2 (08:05→21:26)
[2024-02-13] MEDS: Menthol/Lanolin/Calamine/Znox 113 GM Tube 1 APPLIC TOPICAL ×2 (08:06→21:35)
[2024-02-13 08:29] LABS: Anion Gap 7 (5-15); BUN 34 mg/dL (7-18); BUN/Creat Ratio 18.7 RATIO (10-20); Calcium,Total 9.4 mg/dL (8.5-10.1); Chloride 113 mmol/L (98-107); Cholesterol 102 mg/dL (200); Creatinine, Serum 1.82 mg/dL (0.70-1.30); EST Glomerular Filtration Rate 39 mL/min (>60); Est Glom Filt Rate - Afr Amer 48 mL/min (>60); Estimated Creatinine Clearance 37.77 ml/min; Glucose 98 mg/dL (74-106); High Density Lipoprotein 43 mg/dL; Potassium 4.5 mmol/L (3.5-5.1); Sodium Level 140 mmol/L (136-145); Triglycerides 144 mg/dL; Very Low Density Lipoprotein 29 mg/dL (5-40)
--- NOTE | 2024-02-13 09:54 | NURSING ---
Supervisor [employer] Note; MDS for 02/13/2024 Complete
[2024-02-13 10:20] LABS: Platelet Estimate ADEQUATE (ADEQ); Platelet Morphology LARGE; Smudge Cells 2+
[2024-02-13 10:21] LABS: Anisocytosis 3+; Macrocytosis 3+; Ovalocyte 1+; Stomatocyte 1+; Tear Drop Cell 1+
[2024-02-13] MEDS: Ferrous Sulfate 325 MG Tablet PO (11:29)
[2024-02-13 16:00] VITALS: BP 139/50; PULSE 61; RESP 16; TEMP 36.1; O2SAT 100
[2024-02-13] MEDS: Rivaroxaban 10 MG Tablet PO (17:14)
[2024-02-13] MEDS: Hydroxyurea 500 MG Capsule 1500 MG PO (21:30)
[2024-02-13] MEDS: Albuterol IH (6.7 GM) 1 PUFF INHALER INHALATION (21:31)
[2024-02-13] MEDS: Zolpidem Tartrate 5 MG Tablet 10 MG PO (21:36)
[2024-02-13] MEDS: ALPRAZolam 0.5 MG Tablet 1 MG PO (21:36)
[2024-02-14] MEDS: Acetaminophen 500 MG Tablet 1000 MG PO ×4 (06:03→23:43)
[2024-02-14] MEDS: metroNIDAZOLE 500 MG Tablet PO ×3 (06:03→21:25)
[2024-02-14] MEDS: Colestipol 1 GM TABLET PO ×2 (06:03→21:25)
[2024-02-14] MEDS: cycloBENZAPRine HCl 10 MG Tablet PO ×3 (06:03→21:25)
[2024-02-14] MEDS: Magnesium Chloride 64 MG Delay Rel.Tablet 128 MG PO ×3 (06:03→21:25)
[2024-02-14] MEDS: Ascorbic Acid 500 MG Tablet PO (09:10)
[2024-02-14] MEDS: Menthol/Lanolin/Calamine/Znox 113 GM Tube 1 APPLIC TOPICAL ×2 (09:10→21:24)
[2024-02-14] MEDS: Calcium (Elemental) 500 MG Tablet PO (09:10)
[2024-02-14] MEDS: Escitalopram Oxalate 10 MG Tablet 5 MG PO (09:11)
[2024-02-14 09:12] VITALS: BP 111/68; PULSE 88
[2024-02-14] MEDS: Nystatin Powder 15gm Bottle 1 APPLIC TOPICAL ×2 (09:12→21:32)
[2024-02-14] MEDS: Cefdinir 300 MG Capsule PO ×2 (09:12→21:26)
[2024-02-14] MEDS: Metoprolol Tartrate 50 MG Tablet 150 MG PO (09:12)
[2024-02-14] MEDS: Cholecalciferol (VIT D3) 25 MCG TABLET (1,000 UNITS) 50 MCG PO (09:13)
[2024-02-14] MEDS: Pantoprazole Sodium 40 MG Tablet PO (09:13)
[2024-02-14 09:41] VITALS: BP 111/68; PULSE 88; RESP 16; TEMP 36.3; O2SAT 97
[2024-02-14] MEDS: Tuberculin,Purif.prot.deriv. 50 TU/ML Vial 0.1 ML ID (10:51)
[2024-02-14] MEDS: Ferrous Sulfate 325 MG Tablet PO (12:31)
[2024-02-14] MEDS: Rivaroxaban 10 MG Tablet PO (17:31)
[2024-02-14 21:25] VITALS: PULSE 86; O2SAT 98
[2024-02-14] MEDS: Hydroxyurea 500 MG Capsule 1500 MG PO (21:25)
[2024-02-14] MEDS: Zolpidem Tartrate 5 MG Tablet 10 MG PO (21:27)
[2024-02-14] MEDS: ALPRAZolam 0.5 MG Tablet 1 MG PO (21:27)
[2024-02-14] MEDS: Albuterol IH (6.7 GM) 1 PUFF INHALER INHALATION (23:43)
--- NOTE | 2024-02-15 03:34 | NURSING ---
Pt called out to this nurse and stated his leg was bleeding, upon assessment a small open scabbed area was noted to be bleeding. Pt states he had a band aid on the area and he pulled it off and the adhesive was stuck to the scab and opened up the scab. Area cleansed and DSD applied. Pt denies further needs at this time.
[2024-02-15] MEDS: Magnesium Chloride 64 MG Delay Rel.Tablet 128 MG PO ×3 (06:28→21:23)
[2024-02-15] MEDS: Colestipol 1 GM TABLET PO ×2 (06:28→21:23)
[2024-02-15] MEDS: Acetaminophen 500 MG Tablet 1000 MG PO ×3 (06:28→17:42)
[2024-02-15] MEDS: cycloBENZAPRine HCl 10 MG Tablet PO ×3 (06:28→21:23)
[2024-02-15] MEDS: metroNIDAZOLE 500 MG Tablet PO ×3 (06:28→21:23)
[2024-02-15 08:08] VITALS: BP 132/84; PULSE 101; RESP 17; TEMP 35.8; O2SAT 92
[2024-02-15] MEDS: Ascorbic Acid 500 MG Tablet PO (08:12)
[2024-02-15] MEDS: Calcium (Elemental) 500 MG Tablet PO (08:12)
[2024-02-15] MEDS: Escitalopram Oxalate 10 MG Tablet 5 MG PO (08:13)
[2024-02-15] MEDS: Menthol/Lanolin/Calamine/Znox 113 GM Tube 1 APPLIC TOPICAL ×2 (08:13→21:24)
[2024-02-15 08:14] VITALS: PULSE 105
[2024-02-15] MEDS: Metoprolol Tartrate 50 MG Tablet 150 MG PO (08:14)
[2024-02-15] MEDS: Nystatin Powder 15gm Bottle 1 APPLIC TOPICAL ×2 (08:14→21:25)
[2024-02-15] MEDS: Cefdinir 300 MG Capsule PO ×2 (08:15→21:23)
[2024-02-15] MEDS: Pantoprazole Sodium 40 MG Tablet PO (08:16)
[2024-02-15] MEDS: Cholecalciferol (VIT D3) 25 MCG TABLET (1,000 UNITS) 50 MCG PO (08:16)
[2024-02-15] MEDS: Ferrous Sulfate 325 MG Tablet PO (13:06)
[2024-02-15] MEDS: oxyCODONE 5 MG Tablet PO (17:42)
[2024-02-15] MEDS: Rivaroxaban 10 MG Tablet PO (17:42)
[2024-02-15] MEDS: Hydroxyurea 500 MG Capsule 1500 MG PO (21:23)
[2024-02-15] MEDS: Zolpidem Tartrate 5 MG Tablet 10 MG PO (21:24)
[2024-02-15] MEDS: ALPRAZolam 0.5 MG Tablet 1 MG PO (21:24)
[2024-02-16] MEDS: metroNIDAZOLE 500 MG Tablet PO ×3 (05:53→20:32)
[2024-02-16] MEDS: cycloBENZAPRine HCl 10 MG Tablet PO ×3 (05:53→20:32)
[2024-02-16] MEDS: Magnesium Chloride 64 MG Delay Rel.Tablet 128 MG PO ×3 (05:53→20:33)
[2024-02-16] MEDS: Colestipol 1 GM TABLET PO ×2 (05:53→20:31)
[2024-02-16] MEDS: Acetaminophen 500 MG Tablet 1000 MG PO ×3 (05:54→17:14)
[2024-02-16] MEDS: Cholecalciferol (VIT D3) 25 MCG TABLET (1,000 UNITS) 50 MCG PO (09:07)
[2024-02-16] MEDS: Pantoprazole Sodium 40 MG Tablet PO (09:07)
[2024-02-16] MEDS: Calcium (Elemental) 500 MG Tablet PO (09:07)
[2024-02-16] MEDS: Escitalopram Oxalate 10 MG Tablet 5 MG PO (09:07)
[2024-02-16] MEDS: Ascorbic Acid 500 MG Tablet PO (09:07)
[2024-02-16 09:08] VITALS: BP 125/84; PULSE 111
[2024-02-16] MEDS: Cefdinir 300 MG Capsule PO ×2 (09:08→20:33)
[2024-02-16] MEDS: Metoprolol Tartrate 50 MG Tablet 150 MG PO (09:08)
[2024-02-16] MEDS: Nystatin Powder 15gm Bottle 1 APPLIC TOPICAL ×2 (09:08→20:34)
[2024-02-16] MEDS: Menthol/Lanolin/Calamine/Znox 113 GM Tube 1 APPLIC TOPICAL ×2 (09:09→20:30)
[2024-02-16] MEDS: Albuterol IH (6.7 GM) 1 PUFF INHALER INHALATION ×2 (09:11→20:28)
[2024-02-16 09:12] VITALS: BP 125/84; PULSE 111; RESP 20; O2SAT 94
[2024-02-16] MEDS: Ferrous Sulfate 325 MG Tablet PO (11:13)
[2024-02-16 14:19] LABS: Pathologist Review Reviewed
[2024-02-16 15:45] VITALS: RESP 18; TEMP 35.7
[2024-02-16] MEDS: Rivaroxaban 10 MG Tablet PO (17:15)
[2024-02-16 20:00] VITALS: PULSE 66; O2SAT 96
[2024-02-16] MEDS: Hydroxyurea 500 MG Capsule 1500 MG PO (20:32)
[2024-02-16] MEDS: Zolpidem Tartrate 5 MG Tablet 10 MG PO (20:42)
[2024-02-16] MEDS: ALPRAZolam 0.5 MG Tablet 1 MG PO (20:43)
[2024-02-17] MEDS: Magnesium Chloride 64 MG Delay Rel.Tablet 128 MG PO ×3 (06:37→20:34)
[2024-02-17] MEDS: metroNIDAZOLE 500 MG Tablet PO ×3 (06:37→20:34)
[2024-02-17] MEDS: Colestipol 1 GM TABLET PO ×2 (06:37→20:34)
[2024-02-17] MEDS: cycloBENZAPRine HCl 10 MG Tablet PO ×3 (06:37→20:34)
[2024-02-17] MEDS: Acetaminophen 500 MG Tablet 1000 MG PO ×3 (06:38→17:05)
[2024-02-17] MEDS: Menthol/Lanolin/Calamine/Znox 113 GM Tube 1 APPLIC TOPICAL ×2 (09:10→20:35)
[2024-02-17] MEDS: Calcium (Elemental) 500 MG Tablet PO (09:10)
[2024-02-17] MEDS: Ascorbic Acid 500 MG Tablet PO (09:10)
[2024-02-17] MEDS: Nystatin Powder 15gm Bottle 1 APPLIC TOPICAL ×2 (09:11→20:35)
[2024-02-17] MEDS: Cholecalciferol (VIT D3) 25 MCG TABLET (1,000 UNITS) 50 MCG PO (09:11)
[2024-02-17] MEDS: Escitalopram Oxalate 10 MG Tablet 5 MG PO (09:11)
[2024-02-17] MEDS: Pantoprazole Sodium 40 MG Tablet PO (09:11)
[2024-02-17 09:14] VITALS: PULSE 100
[2024-02-17] MEDS: Metoprolol Tartrate 50 MG Tablet 150 MG PO (09:14)
[2024-02-17] MEDS: Cefdinir 300 MG Capsule PO ×2 (09:19→20:34)
[2024-02-17 09:47] VITALS: BP 120/68; PULSE 100; TEMP 36.3
--- NOTE | 2024-02-17 09:48 | MDS.RN ---
Information for the MDS was obtained from review of the clinical record, interview of resident, staff, and direct observation of resident?s care.
[2024-02-17 10:48] VITALS: BMI 26.9
[2024-02-17] MEDS: Ferrous Sulfate 325 MG Tablet PO (11:11)
--- NOTE | 2024-02-17 15:25 | CASEMGMT ---
Social Work SW spoke with pt to discuss setting DC date. Pt stated dtr is out of town for work this week and requesting this worker contact her for her preference on DC. SW phoned dtr and dtr requesting DC 02/21. IDT agreeable. Dtr to transport SW returned to speak with pt to notify of 02/21. Pt agreeable. SW offered [facility]. Pt agreed. SW provided [facility] resources for future appt scheduling. SW to coordinate appt with van for the eval. Pt appreciative. No DME needs. Plan: DC home with dtr 02/21, [facility] Janie Robb, [employer]
[2024-02-17] MEDS: Rivaroxaban 10 MG Tablet PO (17:05)
--- NOTE | 2024-02-17 19:03 | DS.PCM_ITS ---
Providers Date of Admission: 02/06/24 Primary Care Physician: Dr. Leighton Orozco MD Reason For Visit: RIGHT FEMORAL ENDARTERECTOMY Diagnosis Discharge Diagnosis (1) Debility: Status: Acute Code(s): R53.81 - Other malaise (2) PAOD (peripheral arterial occlusive disease): Status: Chronic Code(s): I77.9 - Disorder of arteries and arterioles, unspecified (3) Essential (primary) hypertension: Status: Acute Code(s): I10 - Essential (primary) hypertension (4) Pulmonary embolism: Status: Acute Code(s): I26.99 - Other pulmonary embolism without acute cor pulmonale (5) CLL (chronic lymphocytic leukemia): Status: Chronic Code(s): C91.10 - Chronic lymphocytic leukemia of B-cell type not having achieved remission (6) COPD (chronic obstructive pulmonary disease): Status: Chronic Code(s): J44.9 - Chronic obstructive pulmonary disease, unspecified (7) Depression: Status: Acute Code(s): F32.A - Depression, unspecified (8) GERD (gastroesophageal reflux disease): Status: Acute Code(s): K21.9 - Gastro-esophageal reflux disease without esophagitis (9) Hyperlipidemia: Status: Acute Code(s): E78.5 - Hyperlipidemia, unspecified Plan 68 year old male with below past medical history significant for paod, underwent right common femoral/profunda femoral/superficial femoral endarterectomy sartorius flap 02/03/[address] Boyer, admitted to TCU with debility, here for rehabilitation, strengthening, prior to discharge home with daughter. * Debility - PT/OT. * Pain - Tylenol 1000mg q6, Oxycodone 5mg q4 prn. * Bowel - senna/colace 2 tablets bid prn, Magnesium citrate 300mL po daily prn. * Adult immunization - Administer pneumonia vaccine, covid vaccine, flu vaccine as appropriate. * DVT prophylaxis - on Xarelto. * COPD - Fluticasone/Salmeterol 232-21 1 puff bid, Incruse 1 puff daily, Albuterol 1 puff q4 prn. * Anxiety - Xanax 1mg daily prn, stable chronic mcc use, GDR not recommended. * Iron deficiency anemia - Ferrous sulfate 325mg daily, Vitamin C 500mg daily. * Calcium deficiency - Calcium 500mg daily. * Vitamin D deficiency - D3 50mcg daily. * Chronic diarrhea - Colestipol 1gm bid. 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 * Hypomagnesemia - Magnesium oxide 400mg tid. * Hypertension - Metoprolol 150mg daily. * Nausea - Zofran 8mg q12 prn. * GERD - Pantoprazole 40mg daily * DVT/PE - s/p IVC filter, Xarelto 10mg daily. * Insomnia - Zolpidem 10mg qhs prn, stable chronic mcc use, GDR not recommended. Medications at Discharge Home Medications albuterol sulfate 90 mcg/actuation aerosol inhaler 1 inh inhalation Q4H PRN shortness of breath or wheezing 12/26/22 omeprazole 40 mg capsule,delayed release 40 mg PO DAILY GERD 12/26/22 zolpidem 5 mg tablet 10 mg PO QHS PRN PRN sleep 12/26/22 escitalopram oxalate 5 mg tablet (Lexapro) 5 mg PO DAILY Mood 01/30/23 ascorbic acid (vitamin C) 500 mg tablet 500 mg PO DAILY Supplement 02/06/23 evolocumab 140 mg/mL subcutaneous pen injector (Repatha SureClick) 140 mg subcut QMONTH [facility] 08/19/23 metoprolol tartrate 100 mg tablet 150 mg PO DAILY BP 10/07/23 rivaroxaban 20 mg tablet (Xarelto) 10 mg PO DAILY Blood Thinner 10/07/23 fluticasone fur. 100 mcg-umeclid 62.5 mcg-vilant 25 mcg inhalat.powder (Trelegy Ellipta) 1 inh inhalation Q24H COPD 12/17/23 hydroxyurea 500 mg capsule 1,500 mg PO DAILY Chemo 12/17/23 magnesium oxide 400 mg (241.3 mg magnesium) tablet 400 mg PO TID SUPPLEMENT 01/16/24 ferrous sulfate 325 mg (65 mg iron) tablet (Feosol) 325 mg PO DAILY SUPPLEMENT 01/22/24 alprazolam 1 mg tablet 1 mg PO QODAY PRN anxiety 02/03/24 calcium carbonate (Calcium 600) 600 mg PO DAILY Supplement 02/03/24 cholecalciferol (vitamin D3) 50 mcg (2,000 unit) capsule (Vitamin D3) 50 mcg PO DAILY Nutrition 02/03/24 colestipol 1 gram tablet 1 g PO BID diarrhea 02/03/24 acetaminophen 500 mg tablet 1,000 mg (2 x 500 mg) PO Q6 #0 tabs 02/17/24 cyclobenzaprine 10 mg tablet 10 mg PO TID 30 days #90 tabs 02/17/24 Hospital Course Operations - (See below.) Procedures None Summary of Care Provided Minutes Spent on Discharge: 35 Hospital Course: 68 year old male with below past medical history significant for paod, underwent right common femoral/profunda femoral/superficial femoral endarterectomy sartorius flap 02/03/[address] Boyer, admitted to TCU with debility, here for rehabilitation, strengthening, prior to discharge home with daughter. 02/10/2024 Neck pain - MRI C spine shows chronic changes, no significant stenosis, try Flexeril 10mg tid. 02/10/2024 MRI brain: IMPRESSION: Persistent right mastoiditis or mastoid effusion. Paranasal sinus inflammatory disease. Chronic involutional changes of the brain. Mastoiditis treated with Cefdinir/Flagyl PO. Follow up with Dr. Lainez 02/26/2024. 02/17/2024 Resident coughing up purulent sputum, send for gram stain, c+s. Discharge home with daughter 02/22/2024, [facility]. Physical Exam Const alert General Appearance: cooperative HEENT normocephalic Eyes PERRL and EOMs intact bilaterally Neck supple, no JVD and no carotid bruits Resp normal respiratory effort, normal air movement and clear to auscultation bilaterally Cardio regular rate and regular rhythm GI normal to inspection, nondistended, normoactive bowel sounds, non-tender and non-distended Extremity normal capillary refill General Extremity: Negative for edema Skin no rashes or lesions noted General Skin Exam: no breakdown Psych affect normal Appearance: appropriate Weight / BMI Weight Weight: 82.781 kg Body Mass Index (BMI) 26.9 ABG / Lab / Microbiology Data 02/13/24 07:35 02/13/24 07:35 D/C Instructions Discharge Diet: No restrictions Discharge Activity: Return to Normal Activity, May Shower and Use Walker Weight Bearing Status: Weight bearing as tolerated Call your doctor if you observe: Fever of 101 or Higher, Inability to urinate, Inability to have a bowel movement, Shortness of breath, Dizziness, Fainting spells, Swelling in the ankles, Chest pain and Uncontrolled pain Additional Instructions: Discharge home with daughter 02/22/2024, [facility]. Please Follow Up With: Quentin Boyer MD When: 02/25/2024. Meaningful Use Info Meaningful Use Meaningful Use Diagnoses (Choose all that apply): None applicable Ischemic Stroke Statin Dosing Therapy Reference: STATIN DOSE THERAPY REFERENCE: * Patients > 75 years receive moderate or high dose statin therapy. * Patients 75 years or YOUNGER should receive HIGH intensity statin dose unless contraindicated. You will be required to document reason for non-treatment if statin daily dose does not meet guidelines. HIGH DOSE STATIN THERAPY DAILY Atorvastatin > than or = to 40 mg Rosuvastatin > than or = to 20 mg Amlodipine + Atorvastatin > than or = to 2.5/40 mg Ezetimibe + Simvastatin 10/80 mg Simvastatin 80mg Discharge Plan Admission Admit Date/Time: 02/06/24 11:19 Primary Reason for Your Visit: Debility. Attending Provider: Leighton Orozco Chi Primary Care Provider: Leighton Orozco Chi Instructions Additional Instructions / Restrictions: Discharge home with daughter 02/22/2024, [facility]. Discharge Orders/Prescriptions Prescriptions: New cyclobenzaprine 10 mg Tablet 10 mg PO TID 30 Days Qty: 90 0RF acetaminophen 500 mg Tablet 1,000 mg PO Q6 Qty: 0 0RF Continued ascorbic acid (vitamin C) 500 mg tablet 500 mg PO DAILY escitalopram oxalate [Lexapro] 5 mg tablet 5 mg PO DAILY Xarelto 20 mg tablet 10 mg PO DAILY Rx Instructions: must administer with evening meal hydroxyurea 500 mg capsule 1,500 mg PO DAILY Rx Instructions: rest on Friday [facility] Ellipta 100-62.5-25 mcg blister with device 1 inh inhalation Q24H albuterol sulfate 90 mcg/actuation HFA aerosol inhaler 1 inh INHALATION Q4H PRN (Reason: shortness of breath or wheezing) omeprazole 40 mg capsule,delayed release(DR/EC) 40 mg PO DAILY Patient Comments: TAKE 1 CAPSULE BY MOUTH ONCE DAILY zolpidem 5 mg tablet 10 mg PO QHS PRN PRN (Reason: sleep) metoprolol tartrate 100 mg tablet 150 mg PO DAILY Repatha SureClick 140 mg/mL pen injector 140 mg SUBCUT QMONTH Patient Comments: INJECT 140 MG SUBCUTANEOUSLY ONCE EVERY MONTH ferrous sulfate [Feosol] 325 mg (65 mg iron) tablet 325 mg PO DAILY cholecalciferol (vitamin D3) [Vitamin D3] 50 mcg (2,000 unit) capsule 50 mcg PO DAILY calcium carbonate [Calcium 600] 600 mg calcium (1,500 mg) tablet 600 mg PO DAILY alprazolam 1 mg tablet 1 mg PO QODAY PRN (Reason: anxiety) colestipol 1 gram tablet 1 g PO BID magnesium oxide 400 mg (241.3 mg magnesium) tablet 400 mg PO TID Discontinued ondansetron HCl 8 mg tablet 8 mg PO Q12H PRN (Reason: nausea and vomiting) oxycodone 5 mg Tablet 5 mg PO Q8H PRN PRN (Reason: Pain Score 4-10) 5 Days Qty: 15 0RF acetaminophen 500 mg Tablet 1,000 mg PO Q6 Qty: 0 0RF Referrals / Follow Up: Leighton Orozco Chi, MD [Primary Care Provider] - Disposition Disposition (needs filled in before D/C Order can be placed): Home, Self Care
[2024-02-17] MEDS: Zolpidem Tartrate 5 MG Tablet 10 MG PO (20:37)
[2024-02-17] MEDS: ALPRAZolam 0.5 MG Tablet 1 MG PO (20:37)
[2024-02-17] MEDS: Hydroxyurea 500 MG Capsule 1500 MG PO (20:40)
[2024-02-17 20:52] VITALS: PULSE 74; RESP 14; O2SAT 95
[2024-02-18] MEDS: Colestipol 1 GM TABLET PO ×2 (05:05→20:37)
[2024-02-18] MEDS: Acetaminophen 500 MG Tablet 1000 MG PO ×3 (05:05→17:00)
[2024-02-18] MEDS: Magnesium Chloride 64 MG Delay Rel.Tablet 128 MG PO ×3 (05:05→20:38)
[2024-02-18] MEDS: metroNIDAZOLE 500 MG Tablet PO ×3 (05:05→20:37)
[2024-02-18] MEDS: cycloBENZAPRine HCl 10 MG Tablet PO ×3 (05:05→20:39)
[2024-02-18 07:30] VITALS: PULSE 96; RESP 16; O2SAT 87
[2024-02-18] MEDS: Budesonide Respules 0.5 MG/2 ML AMPUL.NEB. INHALATION (07:30)
[2024-02-18] MEDS: Ipratropium/Albuterol Sulfate 3 ML AMPUL.NEB INHALATION ×2 (07:30→19:18)
[2024-02-18] MEDS: Calcium (Elemental) 500 MG Tablet PO (09:29)
[2024-02-18 09:30] VITALS: PULSE 102
[2024-02-18] MEDS: Ascorbic Acid 500 MG Tablet PO (09:30)
[2024-02-18] MEDS: Cefdinir 300 MG Capsule PO ×2 (09:30→20:37)
[2024-02-18] MEDS: Cholecalciferol (VIT D3) 25 MCG TABLET (1,000 UNITS) 50 MCG PO (09:30)
[2024-02-18] MEDS: Pantoprazole Sodium 40 MG Tablet PO (09:30)
[2024-02-18] MEDS: Metoprolol Tartrate 50 MG Tablet 150 MG PO (09:30)
[2024-02-18] MEDS: Escitalopram Oxalate 10 MG Tablet 5 MG PO (09:30)
[2024-02-18] MEDS: Nystatin Powder 15gm Bottle 1 APPLIC TOPICAL ×2 (09:31→20:35)
[2024-02-18] MEDS: Menthol/Lanolin/Calamine/Znox 113 GM Tube 1 APPLIC TOPICAL ×2 (09:31→20:33)
[2024-02-18 10:31] VITALS: BP 100/76; PULSE 102; RESP 18; TEMP 36.4; O2SAT 99
[2024-02-18] MEDS: Ferrous Sulfate 325 MG Tablet PO (11:59)
[2024-02-18] MEDS: Rivaroxaban 10 MG Tablet PO (17:00)
[2024-02-18 19:18] VITALS: PULSE 92; RESP 20
[2024-02-18] MEDS: Hydroxyurea 500 MG Capsule 1500 MG PO (20:36)
[2024-02-18] MEDS: Albuterol IH (6.7 GM) 1 PUFF INHALER INHALATION (20:39)
[2024-02-18] MEDS: Zolpidem Tartrate 5 MG Tablet 10 MG PO (20:46)
[2024-02-18] MEDS: ALPRAZolam 0.5 MG Tablet 1 MG PO (20:47)
[2024-02-19] MEDS: metroNIDAZOLE 500 MG Tablet PO ×3 (06:20→20:28)
[2024-02-19] MEDS: Colestipol 1 GM TABLET PO ×2 (06:20→20:31)
[2024-02-19] MEDS: Magnesium Chloride 64 MG Delay Rel.Tablet 128 MG PO ×3 (06:21→20:28)
[2024-02-19] MEDS: cycloBENZAPRine HCl 10 MG Tablet PO ×3 (06:21→20:28)
[2024-02-19] MEDS: Acetaminophen 500 MG Tablet 1000 MG PO ×3 (06:21→17:05)
[2024-02-19] MEDS: Calcium (Elemental) 500 MG Tablet PO (10:05)
[2024-02-19] MEDS: Escitalopram Oxalate 10 MG Tablet 5 MG PO (10:06)
[2024-02-19] MEDS: Ascorbic Acid 500 MG Tablet PO (10:06)
[2024-02-19 10:07] VITALS: BP 104/64; PULSE 113
[2024-02-19] MEDS: Nystatin Powder 15gm Bottle 1 APPLIC TOPICAL ×2 (10:07→20:37)
[2024-02-19] MEDS: Metoprolol Tartrate 50 MG Tablet 150 MG PO (10:07)
[2024-02-19] MEDS: Cholecalciferol (VIT D3) 25 MCG TABLET (1,000 UNITS) 50 MCG PO (10:08)
[2024-02-19] MEDS: Cefdinir 300 MG Capsule PO ×2 (10:08→20:28)
[2024-02-19] MEDS: Pantoprazole Sodium 40 MG Tablet PO (10:08)
[2024-02-19] MEDS: oxyCODONE 5 MG Tablet PO (10:11)
[2024-02-19 10:14] VITALS: BP 104/64; PULSE 113; O2SAT 97
[2024-02-19] MEDS: Ferrous Sulfate 325 MG Tablet PO (11:36)
[2024-02-19 13:32] VITALS: RESP 18; TEMP 36.2
[2024-02-19] MEDS: Rivaroxaban 10 MG Tablet PO (17:05)
[2024-02-19] MEDS: Hydroxyurea 500 MG Capsule 1500 MG PO (20:28)
[2024-02-19] MEDS: Menthol/Lanolin/Calamine/Znox 113 GM Tube 1 APPLIC TOPICAL (20:38)
[2024-02-19] MEDS: ALPRAZolam 0.5 MG Tablet 1 MG PO (20:45)
[2024-02-19] MEDS: Zolpidem Tartrate 5 MG Tablet 10 MG PO (20:46)
[2024-02-20 06:00] LABS: Absolute Lymphocyte Count 15.01 X10^3/uL (0.83-4.51); Absolute Neutrophil Count 2.9 X10^3/uL (2.0-7.7); Basophil# 0.03 X10^3/uL; Basophil% 0.1 % (0-1); Eosinophil# 0.04 X10^3/uL; Eosinophils% 0.1 % (0-5); Hematocrit 28.6 % (40-54); Hemoglobin 8.8 g/dL (13.0-16.5); Lymphocyte # 15.01 X10^3/ul (0.83-4.51); Lymphocyte % 49.8 % (19-41); Mean Corp Hgb Conc 30.8 g/dL (32-36); Mean Corpuscular Hgb 39.6 pg (27.0-32.0); Mean Corpuscular Volume 128.8 fL (80-94); Mean Platelet Vol. 9.6 fl (6.2-12.0); Monocyte% 40.1 % (0-10); NRBC Flagged by Analyzer 0 % (0-5); Neutrophil # 2.86 X10^3/uL (2.7-7.7); Neutrophil % 9.5 % (47-70); POSITIVE COUNT YES; POSITIVE DIFFERENTIAL YES; POSITIVE MORPHOLOGY YES; Platelet Count 282 K/mm3 (150-450); RBC Distribution Width CV 20.5 % (11.6-14.6); RBC Distribution Width SD 95.6 fl (35.1-43.9); Red Blood Count 2.22 M/mm3 (4.6-6.2)
[2024-02-20 06:06] LABS: Differential Indicated SCAN CRITERIA MET; White Blood Count 30.2 K/mm3 (4.4-11.0)
[2024-02-20] MEDS: Magnesium Chloride 64 MG Delay Rel.Tablet 128 MG PO ×3 (06:39→20:02)
[2024-02-20] MEDS: Acetaminophen 500 MG Tablet 1000 MG PO ×3 (06:39→17:14)
[2024-02-20] MEDS: cycloBENZAPRine HCl 10 MG Tablet PO ×3 (06:39→19:59)
[2024-02-20] MEDS: metroNIDAZOLE 500 MG Tablet PO ×3 (06:39→20:02)
[2024-02-20] MEDS: Colestipol 1 GM TABLET PO ×2 (06:40→19:59)
[2024-02-20 06:50] LABS: Anion Gap 7 (5-15); BUN 34 mg/dL (7-18); BUN/Creat Ratio 20.4 RATIO (10-20); Calcium,Total 9.1 mg/dL (8.5-10.1); Chloride 116 mmol/L (98-107); Creatinine, Serum 1.67 mg/dL (0.70-1.30); EST Glomerular Filtration Rate 43 mL/min (>60); Est Glom Filt Rate - Afr Amer 53 mL/min (>60); Estimated Creatinine Clearance 41.16 ml/min; Glucose 92 mg/dL (74-106); Potassium 4.6 mmol/L (3.5-5.1); Sodium Level 142 mmol/L (136-145)
[2024-02-20 07:20] LABS: Differential Comment SCANNED
[2024-02-20 07:21] LABS: Anisocytosis 2+; Macrocytosis 2+; Platelet Estimate ADEQUATE (ADEQ); Polychromasia 1+
[2024-02-20 07:22] LABS: Bite Cell RARE; Ovalocyte 2+
[2024-02-20 10:02] VITALS: BP 123/63; PULSE 108
[2024-02-20] MEDS: Metoprolol Tartrate 50 MG Tablet 150 MG PO (10:02)
[2024-02-20] MEDS: Ascorbic Acid 500 MG Tablet PO (10:02)
[2024-02-20] MEDS: Calcium (Elemental) 500 MG Tablet PO (10:02)
[2024-02-20] MEDS: Cefdinir 300 MG Capsule PO ×2 (10:03→20:03)
[2024-02-20] MEDS: Escitalopram Oxalate 10 MG Tablet 5 MG PO (10:03)
[2024-02-20] MEDS: Pantoprazole Sodium 40 MG Tablet PO (10:04)
[2024-02-20] MEDS: Nystatin Powder 15gm Bottle 1 APPLIC TOPICAL ×2 (10:04→20:02)
[2024-02-20] MEDS: Cholecalciferol (VIT D3) 25 MCG TABLET (1,000 UNITS) 50 MCG PO (10:04)
[2024-02-20 10:08] VITALS: BP 123/63; PULSE 108; O2SAT 95
--- NOTE | 2024-02-20 11:03 | CASEMGMT ---
BIMS () and PHQ9 (0) interviews completed on this date for MDS assessment. AMOR Dillard
[2024-02-20] MEDS: Ferrous Sulfate 325 MG Tablet PO (11:21)
[2024-02-20 13:29] VITALS: RESP 18; TEMP 36.3
[2024-02-20 14:46] LABS: Pathologist Review Reviewed
[2024-02-20] MEDS: Rivaroxaban 10 MG Tablet PO (17:14)
[2024-02-20] MEDS: Menthol/Lanolin/Calamine/Znox 113 GM Tube 1 APPLIC TOPICAL (19:58)
[2024-02-20] MEDS: Hydroxyurea 500 MG Capsule 1500 MG PO (20:00)
[2024-02-20] MEDS: ALPRAZolam 0.5 MG Tablet 1 MG PO (20:06)
[2024-02-20] MEDS: Zolpidem Tartrate 5 MG Tablet 10 MG PO (20:06)
[2024-02-20 20:40] VITALS: PULSE 70; RESP 18; O2SAT 95
[2024-02-21] MEDS: cycloBENZAPRine HCl 10 MG Tablet PO ×3 (06:14→20:49)
[2024-02-21] MEDS: metroNIDAZOLE 500 MG Tablet PO ×2 (06:15→13:55)
[2024-02-21] MEDS: Acetaminophen 500 MG Tablet 1000 MG PO ×3 (06:15→17:50)
[2024-02-21] MEDS: Magnesium Chloride 64 MG Delay Rel.Tablet 128 MG PO ×3 (06:15→20:51)
[2024-02-21] MEDS: Colestipol 1 GM TABLET PO ×2 (09:41→21:59)
[2024-02-21 11:36] VITALS: BP 120/69; PULSE 107; RESP 18; TEMP 36.3; O2SAT 95
[2024-02-21] MEDS: Calcium (Elemental) 500 MG Tablet PO (11:41)
[2024-02-21 11:42] VITALS: PULSE 105
[2024-02-21] MEDS: Metoprolol Tartrate 50 MG Tablet 150 MG PO (11:42)
[2024-02-21] MEDS: Pantoprazole Sodium 40 MG Tablet PO (11:42)
[2024-02-21] MEDS: Cholecalciferol (VIT D3) 25 MCG TABLET (1,000 UNITS) 50 MCG PO (11:42)
[2024-02-21] MEDS: Ascorbic Acid 500 MG Tablet PO (11:42)
[2024-02-21] MEDS: Escitalopram Oxalate 10 MG Tablet 5 MG PO (11:42)
[2024-02-21] MEDS: Ferrous Sulfate 325 MG Tablet PO (11:42)
[2024-02-21] MEDS: Cefdinir 300 MG Capsule PO ×2 (11:42→20:52)
[2024-02-21] MEDS: Menthol/Lanolin/Calamine/Znox 113 GM Tube 1 APPLIC TOPICAL (11:45)
[2024-02-21] MEDS: Nystatin Powder 15gm Bottle 1 APPLIC TOPICAL ×2 (11:45→20:52)
[2024-02-21] MEDS: Rivaroxaban 10 MG Tablet PO (17:50)
[2024-02-21] MEDS: ALPRAZolam 0.5 MG Tablet 1 MG PO (20:49)
[2024-02-21] MEDS: Zolpidem Tartrate 5 MG Tablet 10 MG PO (20:50)
[2024-02-21] MEDS: Hydroxyurea 500 MG Capsule 1500 MG PO (20:54)
[2024-02-21] MEDS: Albuterol IH (6.7 GM) 1 PUFF INHALER INHALATION (20:56)
--- NOTE | 2024-02-21 21:00 | NURSING ---
Resident reports he does not want to be woke at midnight for scheduled dose of Tylenol.
[2024-02-22] MEDS: cycloBENZAPRine HCl 10 MG Tablet PO (06:42)
[2024-02-22] MEDS: Magnesium Chloride 64 MG Delay Rel.Tablet 128 MG PO (06:42)
[2024-02-22] MEDS: Acetaminophen 500 MG Tablet 1000 MG PO (06:43)
[2024-02-22] MEDS: Colestipol 1 GM TABLET PO (06:43)
[2024-02-22 10:00] VITALS: RESP 18
[2024-02-22 10:34] VITALS: BP 124/79; PULSE 95; RESP 16; TEMP 36.1
[2024-02-22] MEDS: Calcium (Elemental) 500 MG Tablet PO (10:34)
[2024-02-22 10:35] VITALS: PULSE 95
[2024-02-22] MEDS: Cholecalciferol (VIT D3) 25 MCG TABLET (1,000 UNITS) 50 MCG PO (10:35)
[2024-02-22] MEDS: Ferrous Sulfate 325 MG Tablet PO (10:35)
[2024-02-22] MEDS: Ascorbic Acid 500 MG Tablet PO (10:35)
[2024-02-22] MEDS: Metoprolol Tartrate 50 MG Tablet 150 MG PO (10:35)
[2024-02-22] MEDS: Escitalopram Oxalate 10 MG Tablet 5 MG PO (10:35)
[2024-02-22] MEDS: Pantoprazole Sodium 40 MG Tablet PO (10:35)
[2024-02-22] MEDS: Menthol/Lanolin/Calamine/Znox 113 GM Tube 1 APPLIC TOPICAL (10:36)
[2024-02-22] MEDS: Nystatin Powder 15gm Bottle 1 APPLIC TOPICAL (10:36)
== END 2024-02-22 12:10 | disposition home or self-care (01) | DRG 949 ==
PROVIDERS: Admitting Provider Family Medicine Geriatric Medicine; PCP Family Medicine Geriatric Medicine; Referring Provider Family Medicine Geriatric Medicine; Visit Provider Family Medicine Geriatric Medicine
DX: Z48.812 Encounter for surgical aftercare following surgery on the circulatory system (principal); C91.10 Chronic lymphocytic leukemia of B-cell type not having achieved remission; D50.9 Iron deficiency anemia, unspecified; E55.9 Vitamin D deficiency, unspecified; J32.9 Chronic sinusitis, unspecified; J43.9 Emphysema, unspecified; F32.A Depression, unspecified; I10 Essential (primary) hypertension; I73.9 Peripheral vascular disease, unspecified; K21.9 Gastro-esophageal reflux disease without esophagitis; K52.9 Noninfective gastroenteritis and colitis, unspecified; E78.5 Hyperlipidemia, unspecified; F17.210 Nicotine dependence, cigarettes, uncomplicated; F41.9 Anxiety disorder, unspecified; E83.42 Hypomagnesemia; Z86.711 Personal history of pulmonary embolism; G47.00 Insomnia, unspecified; Z79.01 Long term (current) use of anticoagulants; Z79.899 Other long term (current) drug therapy; Z86.718 Personal history of other venous thrombosis and embolism
CPT/HCPCS: 36415; 80048; 80061; 85014; 85018; 85025; 87070; 87077; 87184; 87186; 87205; 94640; 97110; 97116; 97162; 97165; 97530; 97535; 97802

== ENCOUNTER → 2024-02-09 | Outpatient (CLI) | payer MEDICARE, OTHER, SELFPAY ==
--- NOTE | 2024-02-09 16:48 | MRI_ITS ---
HISTORY: MASTOIDITIS. TECHNIQUE: Multiplanar and multisequence MR images of the brain were obtained without contrast. 279 images. COMPARISON: 11/07/2023, 10/30/2023. FINDINGS: BRAIN PARENCHYMA: No significant signal abnormality in the brain parenchyma. No abnormal focus of restricted diffusion to suggest acute infarct. No acute intracranial hemorrhage identified. CSF SPACES: Chronic mild volume loss. No significant midline shift or other mass effect.No extra-axial fluid collection. VASCULAR SYSTEM: Major intracranial flow voids are maintained. PARANASAL SINUSES AND MASTOID AIR CELLS: Large amount of fluid and mucosal thickening in the maxillary sinuses. Moderate mucosal thickening of the sphenoid sinus and ethmoid air cells. Persistent fluid in the right mastoid air cells. ORBITS: Symmetric contents. MRI/Brain without Contrast IMPRESSION: Persistent right mastoiditis or mastoid effusion. Paranasal sinus inflammatory disease. Chronic involutional changes of the brain. Electronically Signed: Angelique Velazquez MD at 8:11 EDT ,
== END | disposition home or self-care (01) ==
LOC: MRI 16:44
PROVIDERS: PCP Family Medicine Geriatric Medicine; Referring Provider Family Medicine Geriatric Medicine; Visit Provider Family Medicine Geriatric Medicine
DX: H70.91 Unspecified mastoiditis, right ear (principal)
CPT/HCPCS: 70551

== ENCOUNTER → 2024-02-10 | Outpatient (CLI) | payer MEDICARE, OTHER, SELFPAY ==
--- NOTE | 2024-02-10 09:16 | CT_ITS ---
INDICATION: F/U MULTIPLE LUNG NODULES EXAMINATION: CT CHEST WITHOUT CONTRAST - CT Chest W/O Contrast Injection TECHNIQUE: Helically acquired images were obtained of the chest. The protocol utilizes one or more of the following dose reduction techniques: automated exposure control, adjustment of mA and/or kV according to patient size,and/or use of iterative reconstruction technique. IV Contrast dosage and agent: None. RADIATION DOSAGE (If Supplied By Facility): CTDIvol = ( 15.83 ) mGy, DLP = ( 621.17 ) mGycm COMPARISON: Prior study dated: 07/24/2023 FINDINGS: LUNGS, PLEURA AND LARGE AIRWAYS: Previously noted spiculated right upper lobe nodule abutting the minor fissure has decreased in size. Measures now about 1.8 cm in maximum diameter. Previously measured 2.2 cm when measured at this same level. Left upper lobe nodular density has resolved. Patchy opacities/infiltrates in right upper lobe have resolved as well. New mild stranding/atelectasis in the right lower lobe and lingula. No pleural effusion or thickening. No pneumothorax. THYROID: No thyroid lesions. HEART AND PERICARDIUM: Heart size is normal. No pericardial effusion. CORONARY ARTERIES: Coronary artery calcification is seen. VESSELS: Thoracic aorta is not dilated. MEDIASTINUM AND EVIE: Persistent mediastinal adenopathy unchanged. Few left hilar nodes. Mild thickening of the of the mid esophagus inferior to the bhaskar. No hiatal hernia. UPPER ABDOMEN: No acute pathology. BONES: No suspicious lytic or blastic abnormality. CT/Chest without Contrast IMPRESSION: 1. Spiculated right upper lobe nodule slightly decreased in size since previous exam likely inflammatory. Further follow-up exam in a few months is recommended to ensure resolution and to exclude underlying tumor. 2. Persistent mediastinal and left hilar adenopathy. 3. Mild thickening of the mid thoracic esophagus could reflect esophagitis which can be further evaluated by esophagram or endoscopy. Electronically Signed: Logan Henriquez MD at 14:26 EDT ,
--- NOTE | 2024-02-10 14:32 | MRI_ITS ---
HISTORY: NECK PAIN. TECHNIQUE: Multiplanar and multisequence MR images of the cervical spine were obtained without contrast. 279 images. COMPARISON: [facility] 10/29/2023. FINDINGS: VERTEBRAE: Chronic mild anterior wedging of C7. Mild degenerative endplate changes. No other significant bone marrow signal abnormality. VERTEBRAL ALIGNMENT: Chronic 2 mm retrolisthesis of C5-6. SPINAL CORD: Cervical cord signal and morphology within normal limits. SOFT TISSUES: No prevertebral fluid collection. INTERVERTEBRAL DISCS: C2-3: No significant posterior disc protrusion, central canal stenosis, or foraminal narrowing. C3-4: Minimal disc bulge with uncovertebral and facet arthropathy. No significant central canal stenosis or foraminal narrowing. C4-5: Mild disc bulge with uncovertebral and facet arthropathy resulting in very mild central canal stenosis and bilateral foraminal narrowing. C5-6, C6-7: Mild posterior disc bulge osteophyte complex with uncovertebral and facet arthropathy resulting in mild central canal stenosis and mild-moderate bilateral foraminal narrowing. C7-T1: No significant posterior disc protrusion, central canal stenosis, or foraminal narrowing. MRI/Spine Cervical (Routine) IMPRESSION: Mild multilevel degenerative disc disease of the cervical spine as above. Electronically Signed: Angelique Velazquez MD at 16:03 EDT ,
== END | disposition home or self-care (01) ==
PROVIDERS: PCP Family Medicine Geriatric Medicine; Referring Provider Internal Medicine Hematology & Oncology; Visit Provider Internal Medicine Hematology & Oncology
DX: R91.8 Other nonspecific abnormal finding of lung field (principal); D47.3 Essential (hemorrhagic) thrombocythemia; M54.2 Cervicalgia
CPT/HCPCS: 71250; 72141

== ENCOUNTER → 2024-02-27 | Outpatient (CLI) | payer MEDICARE, OTHER, SELFPAY | END | disposition home or self-care (01) | LOC: RAD 12:07 | PROVIDERS: PCP Family Medicine Geriatric Medicine; Referring Provider Family Medicine Geriatric Medicine; Visit Provider Family Medicine Geriatric Medicine | DX: M54.50 Low back pain, unspecified (principal); M79.601 Pain in right arm | CPT/HCPCS: 72110; 73090 ==

== ENCOUNTER 2024-03-17 09:52 | Inpatient (IN) | payer MEDICARE, OTHER, SELFPAY ==
[2024-03-17] VITALS (26 sets, daily range): BP systolic 82–161; BP diastolic 51–100; PULSE 80–100; RESP 15–30; TEMP 36.2–37.2; O2SAT 90–100; BMI 28.1; BMI 25.7
--- NOTE | 2024-03-17 09:57 | EDS_ITS ---
HPI History of Present Illness Chief Complaint: Fever Narrative Narrative: Chief complaint and HPI: Fever. 68-year-old male with past medical history of CLL, HTN, recent surgery for PAD, DVT on Xarelto presents for evaluation of fever and cough. Patient states that he has had a chronic cough for the past several months. On chart review, he had a sputum culture in February that grew out Pseudomonas. Patient states at that time he was not having a fever so they did not treat. They assumed he was colonized. Patient states over the past month his cough has worsened with green sputum. Last night he had rigors in the shower and shortly later had a temperature of 101 ?F. Patient received Tylenol yesterday and this morning. Patient was seen in the vascular office and found to have a low blood pressure and recommended ED evaluation. Patient denies any headache, chest pain, shortness of breath, abdominal pain, nausea, vomiting, dysuria. Does endorse nasal congestion. Review of systems: See HPI Medications: As listed on the chart Allergies: As listed on the chart PFSH: Per chart Vital signs: As listed on the chart. Reviewed. Physical exam: Gen: A&O x3, NAD Head: Normocephalic, atraumatic Eyes: No sclera icterus, conjunctiva clear, PERRL, EOMI ENT: Mildly dry mucous membranes Neck: Trachea midline, No JVD CV: RRR, no murmurs, no peripheral edema Resp: Lungs diminished in the bilateral bases mildly coarse, no wheezing, + productive cough GI: Abd soft, non-distended, non-tender, no r/r/g Musc: Full ROM, no deformity Skin: Warm, dry, inguinal incision healing well on the right Neuro: Alert, oriented, grossly intact, sensation intact Psych: Cooperative, appropriate mood and affect [facility] Medical History Pulmonary embolism Debility Loss of hearing Wears glasses History of renal disease Cancer Former smoker Chronic cough Shortness of breath on exertion History of edema History of stress test Cardiology follow-up encounter History of heart attack (~2019) History of echocardiogram [place] filter in place Mastoiditis of right side Recurrent deep vein thrombosis (DVT) Depressive disorder due to another medical condition with depressive features History of pulmonary embolism History of DVT (deep vein thrombosis) Iron deficiency anemia due to chronic blood loss Emphysema lung Dyslipidemia Multiple lipomas History of elevated PSA BPH (benign prostatic hyperplasia) AVM (arteriovenous malformation) of colon Chronic GI bleeding Diverticular disease History of skin cancer Multiple lung nodules Cancer of kidney Essential thrombocythemia Hydrocele Femur fracture (~2020) Pulmonary fibrosis DVT (deep venous thrombosis) Obstructive sleep apnea Coronary artery disease CLL (chronic lymphocytic leukemia) [place] esophagus COPD (chronic obstructive pulmonary disease) Home Medications ?Medication ?Instructions ?Recorded ?Last Taken ?Type albuterol sulfate 90 mcg/actuation 1 inh inhalation Q4H PRN shortness 12/26/22 02/03/24 05:00 History aerosol inhaler of breath or wheezing omeprazole 40 mg capsule,delayed 40 mg PO DAILY GERD 12/26/22 02/03/24 05:00 History release zolpidem 5 mg tablet 10 mg PO QHS PRN PRN sleep 12/26/22 02/02/24 21:30 History escitalopram oxalate 5 mg tablet 5 mg PO DAILY Mood 01/30/23 02/03/24 05:00 History (Lexapro) evolocumab 140 mg/mL subcutaneous 140 mg subcut QMONTH [facility] 08/19/23 12/27/23 History pen injector (Kenji Hennessy) metoprolol tartrate 100 mg tablet 150 mg PO DAILY BP 10/07/23 02/03/24 05:00 History rivaroxaban 20 mg tablet (Xarelto) 10 mg PO DAILY Blood Thinner 10/07/23 01/30/24 History fluticasone fur. 100 mcg-umeclid 1 inh inhalation Q24H COPD 12/17/23 02/02/24 History 62.5 mcg-vilant 25 mcg inhalat.powder (Trelegy Ellipta) hydroxyurea 500 mg capsule 1,500 mg PO DAILY Chemo 12/17/23 02/01/24 History magnesium oxide 400 mg (241.3 mg 400 mg PO TID SUPPLEMENT 01/16/24 02/03/24 05:00 History magnesium) tablet ferrous sulfate 325 mg (65 mg 325 mg PO DAILY SUPPLEMENT 01/22/24 02/02/24 21:30 History iron) tablet (Feosol) calcium carbonate (Calcium 600) 600 mg PO DAILY Supplement 02/03/24 02/02/24 21:30 History cholecalciferol (vitamin D3) 50 50 mcg PO DAILY Nutrition 02/03/24 02/02/24 21:30 History mcg (2,000 unit) capsule (Vitamin D3) acetaminophen 500 mg tablet 1,000 mg (2 x 500 mg) PO Q6 #0 tabs 02/17/24 Unknown Rx cyclobenzaprine 10 mg tablet 10 mg PO TID 30 days #90 tabs 02/17/24 Unknown Rx ascorbic acid (vitamin C) 500 mg 1 g PO DAILY Supplement 03/17/24 Unknown History tablet metoprolol succinate 100 mg 100 mg PO Q12H 03/17/24 Unknown History tablet,extended release 24 hr Allergy/AdvReac Type Severity Reaction Status Date / Time Penicillins Allergy PT UNSURE Verified 03/17/24 09:55 OF REACTION doxycycline AdvReac Unknown Upset Verified 03/17/24 09:55 Stomach Family History Father Myocardial infarction Mother Colon cancer Surgical History History of surgery on lower extremity History of cardiac catheterization (~2018) History of heart artery stent (~2018) History of hernia surgery (~2021) H/O kidney removal (~2017) History of bowel resection Hx of tonsillectomy Social History household members: children and other details: Lives with daughter Haydee, who has a , 2 children. Smoking Status: Former smoker pack-years: 10 alcohol intake: never substance use type: does not use, former substance user and other details: marijuana EXAM Physical Exam Const Vital Signs: 03/17/24 09:53 03/17/24 09:55 03/17/24 10:32 Temperature 97.1 F L Temperature Source Oral Pulse Rate 97 Respiratory Rate 16 Respiratory Effort Blood Pressure 93/61 82/56 L Blood Pressure Mean 71 64 Pulse Ox 100 95 Oxygen Delivery Method Room Air Room Air 03/17/24 10:34 03/17/24 10:46 03/17/24 11:00 Temperature 97.1 F L 97.5 F L Temperature Source Oral Oral Pulse Rate 88 84 Respiratory Rate 17 23 H Respiratory Effort Short of Breath Blood Pressure 98/51 L 88/54 L Blood Pressure Mean 66 65 Pulse Ox 95 94 Oxygen Delivery Method Room Air Room Air 03/17/24 12:00 03/17/24 12:23 Temperature 97.3 F L 97.3 F L Temperature Source Oral Pulse Rate 80 80 Respiratory Rate 16 16 Respiratory Effort Blood Pressure 111/62 111/62 Blood Pressure Mean 78 78 Pulse Ox 95 95 Oxygen Delivery Method Room Air MDM MDM MDM Narrative Medical decision making narrative: 68-year-old male with past medical history of CLL, HTN, recent surgery for PAD, DVT on Xarelto presents for evaluation of fever and cough. Has a positive sputum culture from February that grew out Pseudomonas. On presentation, patient is afebrile but is hypotensive with a blood pressure of 82/56. On chart review, he usually has a normal blood pressure. Not hypoxic. Differential diagnosis includes but is not limited to pneumonia, viral illness, UTI, bacteremia, electrolyte abnormality, DENG. Given patient is immunocompromised with his CLL, history of positive Pseudomonas sputum culture, and hypotension patient was made a sepsis alert. NS bolus ordered. Will hold off on 30 cc/kg bolus at this time given concern for respiratory status. Sensitivities of the Pseudomonas was reviewed. Patient has penicillin allergy. Tobramycin ordered as well as Levaquin for empiric coverage. I did speak with pharmacy on the phone for correct tobramycin dose. EKG and chest x-ray reviewed, see below. CBC with a leukocytosis of 23.5, patient has CLL and this appears to be his baseline. Baseline anemia of 8.7. CMP with baseline CKD. No transaminitis. Troponin unremarkable. UA positive for UTI. Patient did receive Levaquin which will cover. Lactic acid unremarkable. On reevaluation, patient's blood pressure has improved. COVID, flu, RSV negative. Patient will warrant admission. Patient was updated of all his results and the plan. He confirmed understanding. Hospitalist accepted admission. EKG shows normal sinus rhythm without any acute ischemic changes. Heart rate 86. Diagnostic: Interpreted by me/EM physician: Chest x-ray with questionable right lower lobe pneumonia due to infiltrate but no obvious consolidation. There seems to be more infiltrate compared to previous chest x-ray in November. 30 minutes of critical care time utilized in managing the patient. This is due to high probability of and deterioration of the patient based on the patient's condition and excludes any separately billable procedures. Impression: 1. Sepsis secondary to suspected right lower lobe pneumonia with known positive Pseudomonas sputum culture 2. UTI 3. Chronic anemia 4. CKD 5. History of CLL Lab Data Labs: Laboratory Results - last 24 hr 03/17/24 03/17/24 10:17 11:55 WBC 23.5 H RBC 2.11 L Hgb 8.7 L Hct 27.5 L MCV 130.3 H MCH 41.2 H MCHC 31.6 L RDW Std Deviation 107.7 H RDW Coeff of Susan 22.2 H Plt Count 245 MPV 9.8 Immature Gran % (Auto) 0.300 Neut % (Auto) 7.2 L Lymph % (Auto) 53.1 H [place] % (Auto) 39.3 H Eos % (Auto) 0.0 Baso % (Auto) 0.1 Absolute Neuts (auto) 1.7 L Absolute Lymphs (auto) 12.47 H Nucleated RBC % 0 Differential Comment COMMENT Diff Path Review May foll Anisocytosis 1+ PT 20.3 H INR 1.7 APTT 35.3 Sodium 136 Potassium 3.9 Chloride 105 Carbon Dioxide 23.0 Anion Gap 8 BUN 28 H Creatinine 1.94 H Estim Creat Clear Calc 38.60 Est GFR (MDRD) Af Amer 44 L Est GFR (MDRD) Non-Af 37 L BUN/Creatinine Ratio 14.4 Glucose 120 H Lactic Acid 2.5 H* Calcium 9.3 Total Bilirubin 1.30 H AST 6 L ALT 11 L Alkaline Phosphatase 78 Troponin I High Sens 9 Total Protein 6.2 L Albumin 3.4 Globulin 2.8 Albumin/Globulin Ratio 1.2 Urine Color Yellow Urine Clarity Sl. Cloudy Urine pH 6.5 Ur Specific [place] 1.010 Urine Protein 30 H Urine Glucose (UA) Normal Urine Ketones 5 H Urine Occult Blood Negative Urine Nitrite Negative Urine Bilirubin Negative Urine Urobilinogen 1 H Ur Leukocyte Esterase 25 H Urine RBC 0 SEEN Urine WBC 0-5 SEEN Ur Squamous Epith Cells 0-5 SEEN Urine Bacteria 2+ Hyaline Casts 0-5 SEEN Urine Mucus 0 SEEN Radiography Diagnostic Testing: Clinical Impression(s) from Imaging Studies Chest X-Ray 03/17/24 10:13 IMPRESSION: No acute cardiopulmonary process identified. Electronically Signed: Angelique Velazquez MD at 11:10 EST , Discharge Plan Disposition Disposition: Acute Care Hospital [facility] Discharge Date/Time: 03/17/24 17:22
--- NOTE | 2024-03-17 10:13 | RAD_ITS ---
HISTORY: Cough. TECHNIQUE: XR Chest 2 Views. COMPARISON: 01/12/2024. FINDINGS: CARDIOMEDIASTINAL BORDERS: Cardiac silhouette within normal limits in size. Mediastinal contour also unchanged with calcification of the aortic knob. LUNGS: Right apical calcified granulomas. PLEURA: No pleural effusion or pneumothorax seen. OSSEOUS STRUCTURES: Degenerative change. RAD/Chest PA and Lateral IMPRESSION: No acute cardiopulmonary process identified. Electronically Signed: Angelique Velazquez MD at 11:10 EST ,
--- NOTE | 2024-03-17 10:14 | EKG12_ITS ---
Test Reason : Blood Pressure : */* mmHG Vent. Rate : 86 BPM Atrial Rate : 86 BPM P-R Int : 152 ms QRS Dur : 100 ms QT Int : 372 ms P-R-T Axes : 61 -65 20 degrees QTcB Int : 445 ms Normal sinus rhythm Left axis deviation Abnormal ECG Confirmed by Americo Carranza ([id number]), photographic editor COSTA MILLARD ([id number]) on 03/18/2024 1:04:05 PM Referred By: Confirmed By: Americo Carranza
[2024-03-17 10:35] LABS: Absolute Lymphocyte Count 12.47 X10^3/uL (0.83-4.51); Absolute Neutrophil Count 1.7 X10^3/uL (2.0-7.7); Basophil# 0.02 X10^3/uL; Basophil% 0.1 % (0-1); Eosinophil# 0.01 X10^3/uL; Hematocrit 27.5 % (40-54); Hemoglobin 8.7 g/dL (13.0-16.5); Lymphocyte # 12.47 X10^3/ul (0.83-4.51); Lymphocyte % 53.1 % (19-41); Mean Corp Hgb Conc 31.6 g/dL (32-36); Mean Corpuscular Hgb 41.2 pg (27.0-32.0); Mean Corpuscular Volume 130.3 fL (80-94); Mean Platelet Vol. 9.8 fl (6.2-12.0); Monocyte# 9.23 X10^3/uL; Monocyte% 39.3 % (0-10); NRBC Flagged by Analyzer 0 % (0-5); Neutrophil # 1.67 X10^3/uL (2.7-7.7); Neutrophil % 7.2 % (47-70); POSITIVE DIFFERENTIAL YES; POSITIVE MORPHOLOGY YES; Platelet Count 245 K/mm3 (150-450); RBC Distribution Width CV 22.2 % (11.6-14.6); Red Blood Count 2.11 M/mm3 (4.6-6.2); White Blood Count 23.5 K/mm3 (4.4-11.0)
[2024-03-17 10:43] LABS: International Normalized Ratio 1.7; Prothrombin Time (Protime)PT. 20.3 SECONDS (11.7-14.9)
[2024-03-17 10:44] LABS: Partial Thromboplast Time 35.3 Seconds (24.1-36.2)
[2024-03-17 10:55] LABS: Differential Indicated SCAN CRITERIA MET; RBC Distribution Width SD 107.7 fl (35.1-43.9)
[2024-03-17 10:58] LABS: ALB/GLOB Ratio 1.2 RATIO (0.9-2.4); AST(SGOT) 6 U/L (15-37); Alanine Aminotransfer ALT/SGPT 11 U/L (16-61); Albumin, Serum 3.4 g/dL (3.2-5.0); Alkaline Phosphatase 78 U/L (45-117); Anion Gap 8 (5-15); BUN 28 mg/dL (7-18); BUN/Creat Ratio 14.4 RATIO (10-20); Calcium,Total 9.3 mg/dL (8.5-10.1); Chloride 105 mmol/L (98-107); Creatinine, Serum 1.94 mg/dL (0.70-1.30); EST Glomerular Filtration Rate 37 mL/min (>60); Est Glom Filt Rate - Afr Amer 44 mL/min (>60); Globulin 2.8 g/dL (2.2-4.2); Glucose 120 mg/dL (74-106); Potassium 3.9 mmol/L (3.5-5.1); Protein, Total 6.2 g/dL (6.4-8.2); Sodium Level 136 mmol/L (136-145); Troponin-I HS 9 pg/mL (3.0-78.0)
[2024-03-17] MEDS: 0.9% Normal Saline (1000mL) 1,000 ML 999 ML IV ×4 (11:18→17:10)
[2024-03-17 11:20] LABS: Lactic Acid 2.5 mmol/L (0.4-1.9)
[2024-03-17] MEDS: DEXTROSE 5% IV (11:34)
[2024-03-17] MEDS: TOBRAMYCIN IV (11:34)
[2024-03-17] MEDS: WATER IV (11:34)
[2024-03-17 11:56] LABS: Anisocytosis 1+
[2024-03-17 12:07] LABS: Mucous, Urine 0 SEEN /hpf (<or=2+); Red Blood Cells-Urine 0 SEEN /hpf (0-5)
[2024-03-17] MEDS: levoFLOXacin IV 750 MG/150 ML BAG 100 MG IV (12:21)
[2024-03-17 12:47] LABS: Color, Urine Yellow (Yellow); Glucose, Dipstick Normal (Normal); Ketone-Dipstick 5 mg/dl (Negative); Leukocyte Esterase-Dipstick 25 /ul (Negative); Nitrite-Dipstick Negative (Negative); Occult Blood-Urine Negative /ul (Negative); Protein-Dipstick 30 mg/dl (Negative); Urine Bilirubin Dipstick Negative (Negative); Urine Clarity Sl. Cloudy (Clear); Urine Urobilinogen 1 mg/dl (Normal); Urine pH 6.5 (5.0 - 8.0)
--- NOTE | 2024-03-17 12:48 | PCM.HP.STD ---
HPI - General General Date of Service: 03/17/24 Chief Complaint: Shortness of breath, productive cough for 3 weeks HPI Narrative ADINA DAVID, is a 68 M came to ED today for cough which is productive greenish-yellow for 2 to 3 weeks. Patient has chronic cough for last several months and had right mastoiditis and completed several courses of antibiotics including Z-Mario, Levaquin, IV cefepime in the past several months. Recently completed 12 days course of clindamycin 6 days ago. He also saw ENT DrYecenia And recommended ear tube which is going to have in April. Patient also short of breath at rest which gets worse on exertion gradually worsening for 2 to 3 weeks. Patient has chronic hearing loss on both ears right worse than left. He has sinus and nasal congestion. At home, patient had fever last night 101 Fahrenheit and went to regular vascular surgery follow-up milligrams found low blood pressure therefore sent to ED. Patient denies headache, chest pain, or palpitation. Vitals reviewed and patient had hypotension in ED with tachypnea. Chest x-ray newly reviewed and shows mild infiltrate on right lung base although reported no acute cardiopulmonary process. Patient was given IV antibiotic Levaquin 750 mg IV and tobramycin and further admitted with diagnosis of sepsis. [facility]LY [facility] Medical History Pulmonary embolism Debility Loss of hearing Wears glasses History of renal disease Cancer Former smoker Chronic cough Shortness of breath on exertion History of edema History of stress test Cardiology follow-up encounter History of heart attack (~2018) History of echocardiogram Tia filter in place Mastoiditis of right side Recurrent deep vein thrombosis (DVT) Depressive disorder due to another medical condition with depressive features History of pulmonary embolism History of DVT (deep vein thrombosis) Iron deficiency anemia due to chronic blood loss Emphysema lung Dyslipidemia Multiple lipomas History of elevated PSA BPH (benign prostatic hyperplasia) AVM (arteriovenous malformation) of colon Chronic GI bleeding Diverticular disease History of skin cancer Multiple lung nodules Cancer of kidney Essential thrombocythemia Hydrocele Femur fracture (~2020) Pulmonary fibrosis DVT (deep venous thrombosis) Obstructive sleep apnea Coronary artery disease CLL (chronic lymphocytic leukemia) Rhodes esophagus COPD (chronic obstructive pulmonary disease) Home Medications ?Medication ?Instructions ?Recorded ?Last Taken ?Type albuterol sulfate 90 mcg/actuation 1 inh inhalation Q4H PRN shortness 12/26/22 02/03/24 05:00 History aerosol inhaler of breath or wheezing omeprazole 40 mg capsule,delayed 40 mg PO DAILY GERD 12/26/22 02/03/24 05:00 History release zolpidem 5 mg tablet 10 mg PO QHS PRN PRN sleep 12/26/22 02/02/24 21:30 History escitalopram oxalate 5 mg tablet 5 mg PO DAILY Mood 01/30/23 02/03/24 05:00 History (Lexapro) evolocumab 140 mg/mL subcutaneous 140 mg subcut QMONTH [facility] 08/19/23 12/27/23 History pen injector (Kenji Hennessy) metoprolol tartrate 100 mg tablet 150 mg PO DAILY BP 10/07/23 02/03/24 05:00 History rivaroxaban 20 mg tablet (Xarelto) 10 mg PO DAILY Blood Thinner 10/07/23 01/30/24 History fluticasone fur. 100 mcg-umeclid 1 inh inhalation Q24H COPD 12/17/23 02/02/24 History 62.5 mcg-vilant 25 mcg inhalat.powder (Trelegy Ellipta) hydroxyurea 500 mg capsule 1,500 mg PO DAILY Chemo 12/17/23 02/01/24 History magnesium oxide 400 mg (241.3 mg 400 mg PO TID SUPPLEMENT 01/16/24 02/03/24 05:00 History magnesium) tablet ferrous sulfate 325 mg (65 mg 325 mg PO DAILY SUPPLEMENT 01/22/24 02/02/24 21:30 History iron) tablet (Feosol) calcium carbonate (Calcium 600) 600 mg PO DAILY Supplement 02/03/24 02/02/24 21:30 History cholecalciferol (vitamin D3) 50 50 mcg PO DAILY Nutrition 02/03/24 02/02/24 21:30 History mcg (2,000 unit) capsule (Vitamin D3) acetaminophen 500 mg tablet 1,000 mg (2 x 500 mg) PO Q6 #0 tabs 02/17/24 Unknown Rx cyclobenzaprine 10 mg tablet 10 mg PO TID 30 days #90 tabs 02/17/24 Unknown Rx ascorbic acid (vitamin C) 500 mg 1 g PO DAILY Supplement 03/17/24 Unknown History tablet metoprolol succinate 100 mg 100 mg PO Q12H 03/17/24 Unknown History tablet,extended release 24 hr Allergy/AdvReac Type Severity Reaction Status Date / Time Penicillins Allergy PT UNSURE Verified 03/17/24 09:55 OF REACTION doxycycline AdvReac Unknown Upset Verified 03/17/24 09:55 Stomach Family History Father Myocardial infarction Mother Colon cancer Surgical History History of surgery on lower extremity History of cardiac catheterization (~2018) History of heart artery stent (~2018) History of hernia surgery (~2021) H/O kidney removal (~2017) History of bowel resection Hx of tonsillectomy Social History household members: children and other details: Lives with daughter Haydee, who has a , 2 children. Smoking Status: Former smoker pack-years: 10 alcohol intake: never substance use type: does not use, former substance user and other details: marijuana ROS ROS Narrative Constitutional: Reports fatigue and weakness. fever with chills. HEENT: Bilateral hearing loss. Reports systems reviewed and no addt'l complaints, except as documented Respiratory/Chest: Acute on chronic shortness of breath. Dyspnea on exertion CVS: No chest pain. RLE angiogram recently. PAD Gastrointestinal: Mild nausea and dry heaving. One-time small vomiting. But no coffee ground emesis, hematemesis or melena. No abdominal pain Genitourinary: Denies burning urination or new urinary tract symptoms Musculoskeletal: Denies acute joint pain or limited range of motion. No acute injury Neurologic: Denies seizure-like symptoms. skin: Recently had a skin tumor/cancer excision. Chronic small psoriatic patches. Endocrinology: Reports systems reviewed and no addt'l complaints, except as documented Hematologic/Lymphatic: CLL. Reports systems reviewed and no addt'l complaints, except as documented Rest 14 ROS are negative except as mentioned in HPI Vital Signs Vital Signs Vital Signs: 03/17/24 09:53 03/17/24 09:55 03/17/24 10:32 Temperature 97.1 F L Temperature Source Oral Pulse Rate 97 Respiratory Rate 16 Respiratory Effort Blood Pressure 93/61 82/56 L Blood Pressure Mean 71 64 Pulse Ox 100 95 Oxygen Delivery Method Room Air Room Air 03/17/24 10:34 03/17/24 10:46 03/17/24 11:00 Temperature 97.1 F L 97.5 F L Temperature Source Oral Oral Pulse Rate 88 84 Respiratory Rate 17 23 H Respiratory Effort Short of Breath Blood Pressure 98/51 L 88/54 L Blood Pressure Mean 66 65 Pulse Ox 95 94 Oxygen Delivery Method Room Air Room Air 03/17/24 12:00 03/17/24 12:23 Temperature 97.3 F L 97.3 F L Temperature Source Oral Pulse Rate 80 80 Respiratory Rate 16 16 Respiratory Effort Blood Pressure 111/62 111/62 Blood Pressure Mean 78 78 Pulse Ox 95 95 Oxygen Delivery Method Room Air Weight Weight: 190 lb 11.198 oz Body Mass Index (BMI) 28.1 Physical Exam Narrative General: Alert, Oriented x3, Cooperative HEENT: Atraumatic, PERRLA, EOMI, Normocephalic Oral: Oral mucosa dry. no Gingival or Mucosal Lesions/ Ulcerations Neck: Supple, No JVD, Negative Carotid Bruits Chest wall/Lungs: Air entry diminished in bilateral lung bases. Right lung base coarse crepitations. [place] Cardiovascular: Regular rate, Regular Rhythm, Normal S1, Normal S2, No M/G/R Abdomen: Bowel Sounds Present, Soft, Non Tender, Non-Distended : No dysuria. No renal angle tenderness. No suprapubic tenderness. Extremities: No edema, Capillary Refill Less than 3 Seconds Skin: Psoriatic patches. Left forearm skin cancer excision recently done. Musculoskeletal: No Tenderness to Palpation of Joints or Extremities Neurological: Cranial nerves II-XII grossly intact, DTR 2+/4. No acute focal neurological deficit. Psych/Mental Status: Flat affect Results Lab / Micro Data 03/17/24 10:17 03/17/24 10:17 Labs: Laboratory Results - last 24 hr 03/17/24 10:17: WBC 23.5 H, RBC 2.11 L, Hgb 8.7 L, Hct 27.5 L, MCV 130.3 H, MCH 41.2 H, MCHC 31.6 L, RDW Std Deviation 107.7 H, RDW Coeff of Susan 22.2 H, Plt Count 245, MPV 9.8, Immature Gran % (Auto) 0.300, Neut % (Auto) 7.2 L, Lymph % (Auto) 53.1 H, Rush % (Auto) 39.3 H, Eos % (Auto) 0.0, Baso % (Auto) 0.1, Absolute Neuts (auto) 1.7 L, Absolute Lymphs (auto) 12.47 H, Nucleated RBC % 0, Differential Comment COMMENT, Diff Path Review May foll, Anisocytosis 1+, PT 20.3 H, INR 1.7, APTT 35.3, Sodium 136, Potassium 3.9, Chloride 105, Carbon Dioxide 23.0, Anion Gap 8, BUN 28 H, Creatinine 1.94 H, Estim Creat Clear Calc 38.60, Est GFR (MDRD) Af Amer 44 L, Est GFR (MDRD) Non-Af 37 L, BUN/Creatinine Ratio 14.4, Glucose 120 H, Lactic Acid 2.5 H*, Calcium 9.3, Total Bilirubin 1.30 H, AST 6 L, ALT 11 L, Alkaline Phosphatase 78, Troponin I High Sens 9, Total Protein 6.2 L, Albumin 3.4, Globulin 2.8, Albumin/Globulin Ratio 1.2 Micro: Microbiology 03/17/24 10:42 Mucosa - Nose SARS-CoV-2, Influenza & RSV (PCR) - Final Imaging Radiology Impression Chest X-Ray 03/17/24 10:13 IMPRESSION: No acute cardiopulmonary process identified. Electronically Signed: Angelique Velazquez MD at 11:10 EST , Assessment & Plan Assessment/Plan (1) Sepsis: QUALIFIERS: Sepsis type: sepsis due to unspecified organism Sepsis acute organ dysfunction status: with acute organ dysfunction PLAN: Plan 68-year-old gentleman was admitted with fever, acute on chronic shortness of breath, hypotension, and productive cough and clinical features suggestive of sepsis 1. Sepsis most likely due to right lower lobe pneumonia probably secondary to Pseudomonas: Patient being admitted in ICU. The patient presented with sepsis with clinical indicators of fever, tachypnea, leukocytosis of probably due to pneumonia from Pseudomonas with acute sepsis-related organ dysfunction as evidenced by hypotension, SBP less than 90 mmHg x 2, lactic acidosis in immunocompromised host of CLL and chronic right ear mastoiditis. Discussed with ID Dr. Mcdonnell. Started on broad-spectrum IV antibiotic meropenem. Geriatric Social Work Professor consulted. DuoNeb as needed. Supportive management for cough, incentive spirometry, PEP and Mucinex D 2. Chronic right ear mastoiditis/URI: During last admission in October 2023, MRI brain was done which showed severe right mastoiditis. Patient saw ENT doctor, Dr. Lainez as an outpatient and impression was chronic mastoiditis. He completed several courses of antibiotics including Z-Mario, Levaquin and IV antibiotics vancomycin, cefepime and during that hospitalization and discharged on oral antibiotic. Plan for ear tube in May 07 3. 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 Isaacs on 02/03/2024. Incision is well-healed over right groin. He went to for follow-up from where he was sent to ED. 4. Carotid stenosis: Patient had CTA head and neck in October 2023 as workup for expressive aphasia in October 2023 which showed mild 40% stenosis of right carotid stenosis and moderate 60% left carotid stenosis. MRI was done which was negative for acute stroke 5. CLL with a history of DVT: Follows Dr. Pascual. Patient on Xarelto continued. He does have an IVC filter placed as he does have a history of GI bleeds 6. Essential HTN: Recovering from hypotension therefore would hold antihypertensive medication 7 GERD? Continue with PPI 5. Anxiety/depression Continue with his home medications DVT:on Xarelto. Microbiology Past 72 Hours 03/17/24 10:42 Mucosa - Nose SARS-CoV-2, Influenza & RSV (PCR) - Final Laboratory Results 03/17/24 10:17: WBC 23.5 H, RBC 2.11 L, Hgb 8.7 L, Hct 27.5 L, MCV 130.3 H, MCH 41.2 H, MCHC 31.6 L, RDW Std Deviation 107.7 H, RDW Coeff of Susan 22.2 H, Plt Count 245, MPV 9.8, Immature Gran % (Auto) 0.300, Neut % (Auto) 7.2 L, Lymph % (Auto) 53.1 H, Rush % (Auto) 39.3 H, Eos % (Auto) 0.0, Baso % (Auto) 0.1, Absolute Neuts (auto) 1.7 L, Absolute Lymphs (auto) 12.47 H, Nucleated RBC % 0, Differential Comment COMMENT, Diff Path Review May foll, Anisocytosis 1+, PT 20.3 H, INR 1.7, APTT 35.3, Sodium 136, Potassium 3.9, Chloride 105, Carbon Dioxide 23.0, Anion Gap 8, BUN 28 H, Creatinine 1.94 H, Estim Creat Clear Calc 38.60, Est GFR (MDRD) Af Amer 44 L, Est GFR (MDRD) Non-Af 37 L, BUN/Creatinine Ratio 14.4, Glucose 120 H, Lactic Acid 2.5 H*, Calcium 9.3, Total Bilirubin 1.30 H, AST 6 L, ALT 11 L, Alkaline Phosphatase 78, Troponin I High Sens 9, Total Protein 6.2 L, Albumin 3.4, Globulin 2.8, Albumin/Globulin Ratio 1.2 03/17/24 11:55: Urine Color Yellow, Urine Clarity Sl. Cloudy, Urine pH 6.5, Ur Specific [place] 1.010, Urine Protein 30 H, Urine Glucose (UA) Normal, Urine Ketones 5 H, Urine Occult Blood Negative, Urine Nitrite Negative, Urine Bilirubin Negative, Urine Urobilinogen 1 H, Ur Leukocyte Esterase 25 H, Urine RBC 0 SEEN, Urine WBC 0-5 SEEN, Ur Squamous Epith Cells 0-5 SEEN, Urine Bacteria 2+, Hyaline Casts 0-5 SEEN, Urine Mucus 0 SEEN 03/17/24 14:30: Sodium Pending, Potassium Pending, Chloride Pending, Carbon Dioxide Pending, Anion Gap Pending, BUN Pending, Creatinine Pending, Est GFR (MDRD) Af Amer Pending, Est GFR (MDRD) Non-Af Pending, BUN/Creatinine Ratio Pending, Glucose Pending, Calcium Pending, Total Bilirubin Pending, AST Pending, ALT Pending, Alkaline Phosphatase Pending, Total Creatine Kinase Pending, Total Protein Pending, Albumin Pending Clinical Impression(s) from Imaging Studies Chest X-Ray 03/17/24 10:13 IMPRESSION: No acute cardiopulmonary process identified. Electronically Signed: Angelique Velazquez MD at 11:10 EST Reading Location ID and State: [facility] / [place] Tel , Service support , Living will/advanced directive/end of life care: Patient does have living will or advanced directive. His daughter present in ED is power of employee benefits attorney for health. After discussion of benefits/risks procedures involved with full code, DNR CC arrest and DNR CC, the patient and her daughter opted for full code. Patient does want artificial life support including intubation, tube feed, ventilator and/chest compression, central venous catheter, vasopressor and DC shock if needed Total time spent in [id number] encounter in discussion of advanced directive 17 minutes. Sepsis Attestation Sepsis Alert: Yes Sepsis Attestation: Agree w/Sepsis Date exam was performed: 03/17/24 Time exam was performed: 13:05 Possible Source of Sepsis: Pulmonary and Other (CLL, IC host) Sepsis Organ Dysfunction Criteria Present: SBP < 90 mmHg or MAP < 65 mmHg, SBP decrease of more than 40 mmHg, INR > 1.5 or aPTT > 60 sec and Lactic Acid > 2 mmol/L Fluid Resuscitation Fluid resuscitation indicated?: Yes Fluid Resuscitation ordered: 30 ml/kg fluid bolus ordered Amount of fluid ordered: 3,000 Charges/Coding Visit Charges Inpatient E&M: 73696 Init Hosp L3 Procedures Hospitalists Procedures: 77247 Advncd Care Plan 30 Min
[2024-03-17 13:10] LABS: White Blood Cells 0-5 SEEN /hpf (0-5)
[2024-03-17 13:11] LABS: Bacteria 2+ /hpf (None Seen); Hyaline Cast 0-5 SEEN /lpf (0-5); Squamous Epithelial Cells - UA 0-5 SEEN /hpf (0-5)
[2024-03-17 14:25] LABS: Reflex Lactate? Y
[2024-03-17 14:51] LABS: ALB/GLOB Ratio 1.1 RATIO (0.9-2.4); AST(SGOT) 9 U/L (15-37); Alanine Aminotransfer ALT/SGPT 8 U/L (16-61); Albumin, Serum 3.2 g/dL (3.2-5.0); Alkaline Phosphatase 77 U/L (45-117); Anion Gap 7 (5-15); BUN 27 mg/dL (7-18); BUN/Creat Ratio 14.6 RATIO (10-20); CPK Total, Creatine Kinase 18 U/L (39-308); Chloride 107 mmol/L (98-107); Creatinine, Serum 1.85 mg/dL (0.70-1.30); EST Glomerular Filtration Rate 39 mL/min (>60); Est Glom Filt Rate - Afr Amer 47 mL/min (>60); Estimated Creatinine Clearance 40.48 ml/min; Glucose 147 mg/dL (74-106); Protein, Total 6.2 g/dL (6.4-8.2); Sodium Level 138 mmol/L (136-145)
--- NOTE | 2024-03-17 16:50 | SEPSISATNOTE ---
Sepsis Attestation Sepsis Alert: Yes Sepsis Attestation: Agree w/Sepsis Date exam was performed: 03/17/24 Time exam was performed: 12:45 Possible Source of Sepsis: Pulmonary Sepsis Organ Dysfunction Criteria Present: SBP < 90 mmHg or MAP < 65 mmHg, SBP decrease of more than 40 mmHg, INR > 1.5 or aPTT > 60 sec and Lactic Acid > 2 mmol/L Fluid Resuscitation Fluid resuscitation indicated?: Yes Fluid Resuscitation ordered: 30 ml/kg fluid bolus ordered Amount of fluid ordered: 3,000 Sepsis Note Date exam was performed: 03/17/24 Time exam was performed: 16:45 Sepsis Attestation: Sepsis re-evaluation was performed Response to fluids: Fluid responsive hypotension
[2024-03-17] MEDS: Acetaminophen 500 MG Tablet 1000 MG PO (18:42)
[2024-03-17] MEDS: Meropenem 1 GM in 0.9% Normal Saline (100mL MB+) 100 ML IV (18:42)
[2024-03-17] MEDS: Rivaroxaban 10 MG Tablet PO (18:59)
[2024-03-17] MEDS: Budesonide Respules 0.5 MG/2 ML AMPUL.NEB. INHALATION (19:50)
[2024-03-17] MEDS: Ipratropium/Albuterol Sulfate 3 ML AMPUL.NEB INHALATION (19:50)
[2024-03-17] MEDS: Ensure Plus High Protein 120 ML LIQUID PO (20:50)
[2024-03-17] MEDS: Magnesium Chloride 64 MG Delay Rel.Tablet 128 MG PO (20:51)
[2024-03-17] MEDS: Zolpidem Tartrate 5 MG Tablet 10 MG PO (23:04)
[2024-03-18] VITALS (28 sets, daily range): BP systolic 99–143; BP diastolic 53–88; PULSE 83–116; RESP 16–29; TEMP 36.2–36.9; O2SAT 86–99; BMI 25.7
[2024-03-18] MEDS: guaiFENesin Dm 10 ML UDC 5 ML PO (00:18)
[2024-03-18] MEDS: Acetaminophen 500 MG Tablet 1000 MG PO ×3 (03:44→18:23)
[2024-03-18 06:03] LABS: Hematocrit 23.7 % (40-54); Hemoglobin 7.4 g/dL (13.0-16.5); Mean Corp Hgb Conc 31.2 g/dL (32-36); Mean Corpuscular Hgb 41.3 pg (27.0-32.0); Mean Corpuscular Volume 132.4 fL (80-94); Mean Platelet Vol. 9.8 fl (6.2-12.0); POSITIVE DIFFERENTIAL YES; POSITIVE MORPHOLOGY YES; Platelet Count 181 K/mm3 (150-450); RBC Distribution Width CV 22.1 % (11.6-14.6); Red Blood Count 1.79 M/mm3 (4.6-6.2); White Blood Count 16.6 K/mm3 (4.4-11.0)
[2024-03-18] MEDS: Magnesium Chloride 64 MG Delay Rel.Tablet 128 MG PO ×3 (06:36→22:50)
[2024-03-18 06:44] LABS: AST(SGOT) 8 U/L (15-37); Alanine Aminotransfer ALT/SGPT 8 U/L (16-61); Albumin, Serum 2.7 g/dL (3.2-5.0); Alkaline Phosphatase 66 U/L (45-117); Anion Gap 6 (5-15); BUN 22 mg/dL (7-18); BUN/Creat Ratio 14.5 RATIO (10-20); Calcium,Total 8.5 mg/dL (8.5-10.1); Chloride 114 mmol/L (98-107); Creatinine, Serum 1.52 mg/dL (0.70-1.30); EST Glomerular Filtration Rate 48 mL/min (>60); Est Glom Filt Rate - Afr Amer 59 mL/min (>60); Estimated Creatinine Clearance 46.69 ml/min; Globulin 2.7 g/dL (2.2-4.2); Glucose 105 mg/dL (74-106); Potassium 3.9 mmol/L (3.5-5.1); Protein, Total 5.4 g/dL (6.4-8.2); Sodium Level 143 mmol/L (136-145)
[2024-03-18] MEDS: Ipratropium/Albuterol Sulfate 3 ML AMPUL.NEB INHALATION ×3 (06:51→20:07)
[2024-03-18] MEDS: Budesonide Respules 0.5 MG/2 ML AMPUL.NEB. INHALATION ×2 (06:51→20:07)
[2024-03-18 08:21] LABS: Differential Indicated MANUAL DIFF; RBC Distribution Width SD 106.8 fl (35.1-43.9)
[2024-03-18 08:23] LABS: Lymphocyte 96 % (19-41); Monocyte 1 % (0-10); Neutrophil-Segmented 3 % (47-70); Total Cells Counted 100 (MANUAL DIFF)
[2024-03-18 08:24] LABS: Anisocytosis 1+; Platelet Estimate ADEQUATE (ADEQ); Red Cell Morphology N CHROM NORMAL (NORM C&C)
[2024-03-18 08:25] LABS: Absolute Lymphocyte Count 15.89 X10^3/uL (0.83-4.51); Absolute Neutrophil Count 0.5 X10^3/uL (2.0-7.7)
[2024-03-18 08:26] LABS: Smudge Cells 2+
[2024-03-18] MEDS: Ferrous Sulfate 325 MG Tablet PO (08:45)
[2024-03-18] MEDS: Escitalopram Oxalate 10 MG Tablet 5 MG PO (08:45)
[2024-03-18] MEDS: Pantoprazole Sodium 40 MG Tablet PO (08:45)
[2024-03-18] MEDS: Ascorbic Acid 500 MG Tablet 1000 MG PO (08:45)
--- NOTE | 2024-03-18 08:45 | PCM.PN.HOSP ---
Reason for Visit Reason for Visit: Diagnoses Sepsis, unspecified organism (03/17/24) Objective Data Objective Data Vital Signs: Vital Signs Temp Pulse Resp BP Pulse Ox O2 Del Method O2 Flow Rate 97.3 F L 105 H 19 H 113/72 90 Nasal Cannula 4 03/18/24 04:00 03/18/24 07:00 03/18/24 07:00 03/18/24 07:00 03/18/24 07:57 03/18/24 07:57 03/18/24 07:57 Oxygen Flow Rate (L/min) 4 Oxygen Delivery Method Nasal Cannula Weight: 179 lb 10.828 oz Body Mass Index (BMI) 25.7 Intake & Output: Intake and Output for Last 24 Hours 03/16/24 03/17/24 03/18/24 23:59 23:59 23:59 Intake Total 4328.75 / 4328.75 Output Total 300 / 300 600 / 600 Balance 4028.75 / 4028.75 -600 / -600 Lab / Micro Data 03/18/24 05:37 03/18/24 05:37 Labs: Laboratory Results - last 24 hr 03/17/24 10:17: WBC 23.5 H, RBC 2.11 L, Hgb 8.7 L, Hct 27.5 L, MCV 130.3 H, MCH 41.2 H, MCHC 31.6 L, RDW Std Deviation 107.7 H, RDW Coeff of Susan 22.2 H, Plt Count 245, MPV 9.8, Immature Gran % (Auto) 0.300, Neut % (Auto) 7.2 L, Lymph % (Auto) 53.1 H, [place] % (Auto) 39.3 H, Eos % (Auto) 0.0, Baso % (Auto) 0.1, Absolute Neuts (auto) 1.7 L, Absolute Lymphs (auto) 12.47 H, Nucleated RBC % 0, Differential Comment COMMENT, Diff Path Review May foll, Anisocytosis 1+, PT 20.3 H, INR 1.7, APTT 35.3, Sodium 136, Potassium 3.9, Chloride 105, Carbon Dioxide 23.0, Anion Gap 8, BUN 28 H, Creatinine 1.94 H, Estim Creat Clear Calc 38.60, Est GFR (MDRD) Af Amer 44 L, Est GFR (MDRD) Non-Af 37 L, BUN/Creatinine Ratio 14.4, Glucose 120 H, Lactic Acid 2.5 H*, Calcium 9.3, Total Bilirubin 1.30 H, AST 6 L, ALT 11 L, Alkaline Phosphatase 78, Troponin I High Sens 9, Total Protein 6.2 L, Albumin 3.4, Globulin 2.8, Albumin/Globulin Ratio 1.2 03/17/24 11:55: Urine Color Yellow, Urine Clarity Sl. Cloudy, Urine pH 6.5, Ur Specific [place] 1.010, Urine Protein 30 H, Urine Glucose (UA) Normal, Urine Ketones 5 H, Urine Occult Blood Negative, Urine Nitrite Negative, Urine Bilirubin Negative, Urine Urobilinogen 1 H, Ur Leukocyte Esterase 25 H, Urine RBC 0 SEEN, Urine WBC 0-5 SEEN, Ur Squamous Epith Cells 0-5 SEEN, Urine Bacteria 2+, Hyaline Casts 0-5 SEEN, Urine Mucus 0 SEEN 03/17/24 14:30: Sodium 138, Potassium 4.0, Chloride 107, Carbon Dioxide 24.0, Anion Gap 7, BUN 27 H, Creatinine 1.85 H, Estim Creat Clear Calc 40.48, Est GFR (MDRD) Af Amer 47 L, Est GFR (MDRD) Non-Af 39 L, BUN/Creatinine Ratio 14.6, Glucose 147 H, Calcium 9.0, Total Bilirubin 0.80, AST 9 L, ALT 8 L, Alkaline Phosphatase 77, Total Creatine Kinase 18 L, Total Protein 6.2 L, Albumin 3.2, Globulin 3.0, Albumin/Globulin Ratio 1.1 03/17/24 15:28: Lactic Acid 2.0 03/18/24 05:37: WBC 16.6 H, RBC 1.79 L, Hgb 7.4 L, Hct 23.7 L, MCV 132.4 H, MCH 41.3 H, MCHC 31.2 L, RDW Std Deviation 106.8 H, RDW Coeff of Susan 22.1 H, Plt Count 181, MPV 9.8, Neut % (Auto) Not Reportable, Absolute Neuts (auto) 0.5 L, Absolute Lymphs (auto) 15.89 H, Total Counted 100, Neutrophils % (Manual) 3 L, Lymphocytes % (Manual) 96 H*, Monocytes % (Manual) 1, Diff Path Review May foll, Smudge Cells 2+, Platelet Estimate ADEQUATE, RBC Morphology N CHROM, Anisocytosis 1+, Sodium 143, Potassium 3.9, Chloride 114 H, Carbon Dioxide 23.0, Anion Gap 6, BUN 22 H, Creatinine 1.52 H, Estim Creat Clear Calc 46.69, Est GFR (MDRD) Af Amer 59 L, Est GFR (MDRD) Non-Af 48 L, BUN/Creatinine Ratio 14.5, Glucose 105, Calcium 8.5, Total Bilirubin 0.40, AST 8 L, ALT 8 L, Alkaline Phosphatase 66, Total Protein 5.4 L, Albumin 2.7 L, Globulin 2.7, Albumin/Globulin Ratio 1.0 Micro: Microbiology 03/17/24 11:55 Urine, Random Legionella Antigen - Final 03/17/24 11:55 Urine, Random Streptococcus pneumoniae Antigen (M - Final 03/17/24 10:42 Sputum, Expectorated/Coughed Gram Stain - Final 03/17/24 10:42 Mucosa - Nose SARS-CoV-2, Influenza & RSV (PCR) - Final Radiography Diagnostic Testing: Radiology Impression Chest X-Ray 03/17/24 10:13 IMPRESSION: No acute cardiopulmonary process identified. Electronically Signed: Angelique Velazquez MD at 11:10 EST Reading Location ID and State: [facility] / [place] Tel , Service support , Physical Exam Narrative Seen and examined. Patient heart rate in 94 pulmonary BP 132/71 Pulse ox 96% on room air. No fever. Physical exam General: Alert, Oriented x3, Cooperative HEENT: Atraumatic, PERRLA, EOMI, Normocephalic Oral: Oral mucosa dry. no Gingival or Mucosal Lesions/ Ulcerations Neck: Supple, No JVD, Negative Carotid Bruits Chest wall/Lungs: Air entry diminished in bilateral lung bases. Right lung base coarse crepitations. CALVILLO present Cardiovascular: Regular rate, Regular Rhythm, Normal S1, Normal S2, No M/G/R Abdomen: Bowel Sounds Present, Soft, Non Tender, Non-Distended : No dysuria. No renal angle tenderness. No suprapubic tenderness. Extremities: No edema, Capillary Refill Less than 3 Seconds Skin: Psoriatic patches. Left forearm skin cancer excision recently done. Musculoskeletal: No Tenderness to Palpation of Joints or Extremities Neurological: Cranial nerves II-XII grossly intact, DTR 2+/4. No acute focal neurological deficit. Psych/Mental Status: Flat affect Assessment & Plan Assessment/Plan (1) Sepsis: QUALIFIERS: Sepsis acute organ dysfunction status: with acute organ dysfunction Sepsis type: sepsis due to unspecified organism PLAN: Plan 68-year-old gentleman was admitted with fever, acute on chronic shortness of breath, hypotension, and productive cough and clinical features suggestive of sepsis 1. Sepsis most likely due to right lower lobe pneumonia probably secondary to rhinovirus with history of recent Pseudomonas pneumonia: Patient being admitted in ICU. The patient presented with sepsis with clinical indicators of fever, tachypnea, leukocytosis of probably due to pneumonia from Pseudomonas with acute sepsis-related organ dysfunction as evidenced by hypotension, SBP less than 90 mmHg x 2, lactic acidosis in immunocompromised host of CLL and chronic right ear mastoiditis. Discussed with ID Dr. Mcdonnell. Started on broad-spectrum IV antibiotic meropenem. [employer] Practitioner consulted. DuoNeb as needed. Supportive management for cough, incentive spirometry, PEP and Mucinex D 03/18: Urinary antigens are negative. Blood culture pending. Respiratory panel positive for rhinovirus triple PCR for SARS-CoV-2, flu and RSV are negative. 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 Mild tachycardia. Patient was seen by ID. Continue meropenem. Patient was evaluated by morphology teacher and advised to follow with primary machine technician and side off. 2. Chronic right ear mastoiditis/URI: During last admission in October 2023, MRI brain was done which showed severe right mastoiditis. Patient saw ENT doctor, Dr. Lainez as an outpatient and impression was chronic mastoiditis. He completed several courses of antibiotics including Z-Mario, Levaquin and IV antibiotics vancomycin, cefepime and during that hospitalization and discharged on oral antibiotic. Plan for ear tube in May 07 3. RLE claudication and atherosclerosis/PAD: Patient had right AFFIRMATIVE ACTION OFFICER/profunda femoral/SFA endarterectomy with sartorius flap by Dr. Isaacs on 02/03/2024. Incision is well-healed over right groin. He went to for follow-up from where he was sent to ED. 4. Carotid stenosis: Patient had CTA head and neck in October 2023 as workup for expressive aphasia in October 2023 which showed mild 40% stenosis of right carotid stenosis and moderate 60% left carotid stenosis. MRI was done which was negative for acute stroke 5. CLL with a history of DVT: Follows Dr. Pascual. Patient on Xarelto continued. He does have an IVC filter placed as he does have a history of GI bleeds 6. Essential HTN: Recovering from hypotension therefore would hold antihypertensive medication 7 GERD? Continue with PPI 5. Anxiety/depression Continue with his home medications DVT:on Xarelto. 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 golf course architect 03/17/24 10:42 Sputum, Expectorated/Coughed Gram Stain - Final 03/17/24 10:42 Sputum, Expectorated/Coughed Respiratory Culture - Preliminary 03/17/24 11:55 Urine, Random Legionella Antigen - Final 03/17/24 11:55 Urine, Random Streptococcus pneumoniae Antigen (M - Final 03/17/24 10:42 Mucosa - Nose SARS-CoV-2, Influenza & RSV (PCR) - Final Laboratory Results 03/17/24 10:17: Diff Path Review Reviewed 03/18/24 05:37: WBC 16.6 H, RBC 1.79 L, Hgb 7.4 L, Hct 23.7 L, MCV 132.4 H, MCH 41.3 H, MCHC 31.2 L, RDW Std Deviation 106.8 H, RDW Coeff of Susan 22.1 H, Plt Count 181, MPV 9.8, Neut % (Auto) Not Reportable, Absolute Neuts (auto) 0.5 L, Absolute Lymphs (auto) 15.89 H, Total Counted 100, Neutrophils % (Manual) 3 L, Lymphocytes % (Manual) 96 H*, Monocytes % (Manual) 1, Diff Path Review May foll, Smudge Cells 2+, Platelet Estimate ADEQUATE, RBC Morphology N CHROM, Anisocytosis 1+, Sodium 143, Potassium 3.9, Chloride 114 H, Carbon Dioxide 23.0, Anion Gap 6, BUN 22 H, Creatinine 1.52 H, Estim Creat Clear Calc 46.69, Est GFR (MDRD) Af Amer 59 L, Est GFR (MDRD) Non-Af 48 L, BUN/Creatinine Ratio 14.5, Glucose 105, Calcium 8.5, Total Bilirubin 0.40, AST 8 L, ALT 8 L, Alkaline Phosphatase 66, Total Protein 5.4 L, Albumin 2.7 L, Globulin 2.7, Albumin/Globulin Ratio 1.0 Clinical Impression(s) from Imaging Studies Chest X-Ray 03/17/24 10:13 IMPRESSION: No acute cardiopulmonary process identified. Electronically Signed: Angelique Velazquez MD at 11:10 EST , Living will/advanced directive/end of life care: Patient does have living will or advanced directive. His daughter present in ED is power of eligibility supervisor for health. After discussion of benefits/risks procedures involved with full code, DNR CC arrest and DNR CC, the patient and her daughter opted for full code. Patient does want artificial life support including intubation, tube feed, ventilator and/chest compression, central venous catheter, vasopressor and DC shock if needed Total time spent in [id number] encounter in discussion of advanced directive 17 minutes. Charges/Coding Visit Charges Inpatient E&M: 60090 Subs Hosp L2
[2024-03-18] MEDS: Metoprolol Tartrate 50 MG Tablet 150 MG PO (08:46)
[2024-03-18] MEDS: Ensure Plus High Protein 120 ML LIQUID PO (09:05)
--- NOTE | 2024-03-18 10:24 | CON.PCM.ID_ITS ---
Assessment & Plan Assessment/Plan (1) Sepsis: QUALIFIERS: Sepsis type: sepsis due to unspecified organism S epsis acute organ dysfunction status: with acute organ dysfunction PLAN: CXR was clear. Feeling better this AM. Sputum cx 02/2024 with PsA. Sputum cx and bcx pending here. Cont meropenem. Will follow, thank you, d/w Dr. Oseguera yesterday HPI Consult Data Date of Consult: 03/18/24 HPI Narrative Reason for Consultation: pneumonia HPI Narrative: ADINA DAVID, is a 68 M with h/o CLL, treated for chronic mastoiditis with several courses of abx over summer and fall. Over past 3 weeks increased cough with dyspnea and green sputum. Developed fever for 2-3 days, came to ED 03/17, given tobra and levaquin in ED, admitted on meropenem. Feeling better this AM. Full ROS performed and neg except as noted above. FOR[facility]LY [facility], [facility] Medical History Pulmonary embolism Debility Loss of hearing Wears glasses History of renal disease Cancer Former smoker Chronic cough Shortness of breath on exertion History of edema History of stress test Cardiology follow-up encounter History of heart attack (~2018) History of echocardiogram Tia filter in place Mastoiditis of right side Recurrent deep vein thrombosis (DVT) Depressive disorder due to another medical condition with depressive features History of pulmonary embolism History of DVT (deep vein thrombosis) Iron deficiency anemia due to chronic blood loss Emphysema lung Dyslipidemia Multiple lipomas History of elevated PSA BPH (benign prostatic hyperplasia) AVM (arteriovenous malformation) of colon Chronic GI bleeding Diverticular disease History of skin cancer Multiple lung nodules Cancer of kidney Essential thrombocythemia Hydrocele Femur fracture (~2020) Pulmonary fibrosis DVT (deep venous thrombosis) Obstructive sleep apnea Coronary artery disease CLL (chronic lymphocytic leukemia) [place] esophagus COPD (chronic obstructive pulmonary disease) Home Medications ?Medication ?Instructions ?Recorded ?Last Taken ?Type albuterol sulfate 90 mcg/actuation 1 inh inhalation Q4H PRN shortness 12/26/22 02/03/24 05:00 History aerosol inhaler of breath or wheezing omeprazole 40 mg capsule,delayed 40 mg PO DAILY GERD 12/26/22 03/17/24 History release zolpidem 5 mg tablet 10 mg PO QHS PRN PRN sleep 12/26/22 03/15/24 History escitalopram oxalate 5 mg tablet 5 mg PO DAILY Mood 01/30/23 03/17/24 History (Lexapro) evolocumab 140 mg/mL subcutaneous 140 mg subcut QMONTH Heart Health 08/19/23 03/15/24 History pen injector (Kenji Hennessy) rivaroxaban 20 mg tablet (Xarelto) 10 mg PO DAILY Blood Thinner 10/07/23 03/16/24 History fluticasone fur. 100 mcg-umeclid 1 inh inhalation Q24H COPD 12/17/23 02/02/24 History 62.5 mcg-vilant 25 mcg inhalat.powder (Trelegy Ellipta) hydroxyurea 500 mg capsule 1,500 mg PO DAILY Chemo 12/17/23 03/16/24 History magnesium oxide 400 mg (241.3 mg 400 mg PO TID SUPPLEMENT 01/16/24 03/17/24 History magnesium) tablet ferrous sulfate 325 mg (65 mg 325 mg PO DAILY SUPPLEMENT 01/22/24 03/16/24 History iron) tablet (Feosol) calcium carbonate (Calcium 600) 600 mg PO DAILY Supplement 02/03/24 03/16/24 History cholecalciferol (vitamin D3) 50 50 mcg PO DAILY Nutrition 02/03/24 03/16/24 History mcg (2,000 unit) capsule (Vitamin D3) acetaminophen 500 mg tablet 1,000 mg (2 x 500 mg) PO Q6 #0 tabs 02/17/24 03/17/24 Rx ascorbic acid (vitamin C) 500 mg 1 g PO DAILY Supplement 03/17/24 03/16/24 History tablet cyclobenzaprine 10 mg tablet 10 mg PO TID PRN muscle spasm 03/17/24 03/16/24 History metoprolol succinate 100 mg 100 mg PO DAILY BP 03/17/24 03/17/24 History tablet,extended release 24 hr Allergy/AdvReac Type Severity Reaction Status Date / Time Penicillins Allergy PT UNSURE Verified 03/17/24 09:55 OF REACTION doxycycline AdvReac Unknown Upset Verified 03/17/24 09:55 Stomach Family History Father Myocardial infarction Mother Colon cancer Surgical History History of surgery on lower extremity History of cardiac catheterization (~2018) History of heart artery stent (~2018) History of hernia surgery (~2021) H/O kidney removal (~2017) History of bowel resection Hx of tonsillectomy Social History household members: children and other details: Lives with daughter Haydee, who has a , 2 children. Smoking Status: Former smoker pack-years: 10 alcohol intake: never substance use type: does not use, former substance user and other details: marijuana Physical Exam Const alert, oriented x3 and no apparent distress General Appearance: cooperative HEENT normocephalic and head/scalp atraumatic Eyes PERRL and EOMs intact bilaterally Neck supple and No nodes Resp Auscultation: diminished lung sounds Cardio regular rate and regular rhythm GI soft to palpation, non-tender and non-distended Extremity General Extremity: Negative for edema Skin no rashes or lesions noted Neuro CN's II-XII intact bilaterally Lab / Micro Data Attestation: I reviewed the patient's lab results. 03/18/24 05:37 03/18/24 05:37 Labs: Laboratory Results - last 24 hr 03/17/24 10:17: WBC 23.5 H, RBC 2.11 L, Hgb 8.7 L, Hct 27.5 L, MCV 130.3 H, MCH 41.2 H, MCHC 31.6 L, RDW Std Deviation 107.7 H, RDW Coeff of Susan 22.2 H, Plt Count 245, MPV 9.8, Immature Gran % (Auto) 0.300, Neut % (Auto) 7.2 L, Lymph % (Auto) 53.1 H, [place] % (Auto) 39.3 H, Eos % (Auto) 0.0, Baso % (Auto) 0.1, A bsolute Neuts (auto) 1.7 L, Absolute Lymphs (auto) 12.47 H, Nucleated RBC % 0, Differential Comment COMMENT, Diff Path Review May foll, Anisocytosis 1+, PT 20.3 H, INR 1.7, APTT 35.3, Sodium 136, Potassium 3.9, Chloride 105, Carbon Dioxide 23.0, Anion Gap 8, BUN 28 H, Creatinine 1.94 H, Estim Creat Clear Calc 38.60, Est GFR (MDRD) Af Amer 44 L, Est GFR (MDRD) Non-Af 37 L, BUN/Creatinine Ratio 14.4, Glucose 120 H, Lactic Acid 2.5 H*, Calcium 9.3, Total Bilirubin 1.30 H, AST 6 L, ALT 11 L, Alkaline Phosphatase 78, Troponin I High Sens 9, Total Protein 6.2 L, Albumin 3.4, Globulin 2.8, Albumin/Globulin Ratio 1.2 03/17/24 11:55: Urine Color Yellow, Urine Clarity Sl. Cloudy, Urine pH 6.5, Ur Specific [place] 1.010, Urine Protein 30 H, Urine Glucose (UA) Normal, Urine Ketones 5 H, Urine Occult Blood Negative, Urine Nitrite Negative, Urine Bilirubin Negative, Urine Urobilinogen 1 H, Ur Leukocyte Esterase 25 H, Urine RBC 0 SEEN, Urine WBC 0-5 SEEN, Ur Squamous Epith Cells 0-5 SEEN, Urine Bacteria 2+, Hyaline Casts 0-5 SEEN, Urine Mucus 0 SEEN 03/17/24 14:30: Sodium 138, Potassium 4.0, Chloride 107, Carbon Dioxide 24.0, Anion Gap 7, BUN 27 H, Creatinine 1.85 H, Estim Creat Clear Calc 40.48, Est GFR (MDRD) Af Amer 47 L, Est GFR (MDRD) Non-Af 39 L, BUN/Creatinine Ratio 14.6, G lucose 147 H, Calcium 9.0, Total Bilirubin 0.80, AST 9 L, ALT 8 L, Alkaline Phosphatase 77, Total Creatine Kinase 18 L, Total Protein 6.2 L, Albumin 3.2, Globulin 3.0, Albumin/Globulin Ratio 1.1 03/17/24 15:28: Lactic Acid 2.0 03/18/24 05:37: WBC 16.6 H, RBC 1.79 L, Hgb 7.4 L, Hct 23.7 L, MCV 132.4 H, MCH 41.3 H, MCHC 31.2 L, RDW Std Deviation 106.8 H, RDW Coeff of Susan 22.1 H, Plt Count 181, MPV 9.8, Neut % (Auto) Not Reportable, Absolute Neuts (auto) 0.5 L, A bsolute Lymphs (auto) 15.89 H, Total Counted 100, Neutrophils % (Manual) 3 L, L ymphocytes % (Manual) 96 H*, Monocytes % (Manual) 1, Diff Path Review August foll, Smudge Cells 2+, Platelet Estimate ADEQUATE, RBC Morphology N CHROM, Anisocytosis 1+, Sodium 143, Potassium 3.9, Chloride 114 H, Carbon Dioxide 23.0, Anion Gap 6, BUN 22 H, Creatinine 1.52 H, Estim Creat Clear Calc 46.69, Est GFR (MDRD) Af Amer 59 L, Est GFR (MDRD) Non-Af 48 L, BUN/Creatinine Ratio 14.5, Glucose 105, Calcium 8.5, Total Bilirubin 0.40, AST 8 L, ALT 8 L, Alkaline Phosphatase 66, Total Protein 5.4 L, Albumin 2.7 L, Globulin 2.7, Albumin/Globulin Ratio 1.0 Micro: Microbiology 03/17/24 11:55 Urine, Random Legionella Antigen - Final 03/17/24 11:55 Urine, Random Streptococcus pneumoniae Antigen (M - Final 03/17/24 10:42 Sputum, Expectorated/Coughed Gram Stain - Final 03/17/24 10:42 Mucosa - Nose SARS-CoV-2, Influenza & RSV (PCR) - Final Imaging Radiology Impression Chest X-Ray 03/17/24 10:13 IMPRESSION: No acute cardiopulmonary process identified. Electronically Signed: Angelique Velazquez MD at 11:10 EST ,
[2024-03-18] MEDS: Meropenem 1 GM in 0.9% Normal Saline (100mL MB+) 100 ML IV ×2 (11:09→23:20)
--- NOTE | 2024-03-18 11:50 | CASEMGMT ---
MEHUL CERDA Assessment Face to Face with patient for initial transition planning/care coordination assessment. MEHUL CERDA introduced self and role at [facility], pt voices understanding. Pt is A&Ox4 and is resting comfortably in bed and is calm. Care providers, pharmacy, and demographics verified. Admitting dx: Sepsis LACE Strata: 3 PCP: Ernesto Specialists: Merlin (vascular), Adeel (Nephro), Samara (Onc), Brea (Cardio) Preferred Pharmacy: [facility] Insurance: [facility] [employer], [employer] [facility] Prescription Benefit: Yes LNOK: Raine Ott (JOHANNA) Living Arrangements: Pt lives with his daughter, MARTÍN, and 2 Grandchildren (Ages 3 & 5) in a single story home with a basement with either 2 steps to enter from the front or 4 steps to enter from the garage. ADLs/IADLs: Ind with ADLs. Pt has assistance for IADLs from the pt family as well as Private Duty Aids through [employer] that come 2x/week. Transportation: Pt drives at times, pt family also drives. Denies concerns DME: Rollator, Walker, Cane, shower chair, W/C, BP Monitor, Pulse Ox. CM will follow for oxygen needs. HHC/SNF: Recent history at [facility]. Pt states that he has had skilled HHC in the past but does not recall the name of the agency. Pt was also recently discharged from for OP PT. Pt?s goal: Stay out of the hospital. Plan: TBD. Anticipate SNF vs home with HHC vs Home with OP therapy. 6-click is 6. Therapy is ordered and pending. At this time, the pt is unsure of what he will need or want to do at time of DC. Pt states that is is too early to tell. Pt denies further questions at this time. Care management to continue to follow. Willem Mon RN, CM
--- NOTE | 2024-03-18 12:12 | EX.PCM.CONCC ---
Assessment & Plan Assessment/Plan (1) Sepsis: QUALIFIERS: Sepsis acute organ dysfunction status: with acute organ dysfunction Sepsis type: sepsis due to unspecified organism PLAN: Plan RECOMMENDATIONS: 1. Antimicrobials per ID recommendations. 2. Continue bronchodilators per outpatient regimen. 3. Encourage incentive spirometer use and mobilize patient as tolerated. 4. The patient is medically stable for transfer out of the intensive care unit. 5. The patient should follow-up with his primary pulmonary provider after discharge. 6. Will sign off from a pulmonary/critical care perspective. Please call with any additional questions. IMPRESSIONS: 1. Sepsis The patient presented to the hospital with sepsis due to suspected urinary tract source of infection with acute sepsis related organ dysfunction as evidenced by hypotension and lactic acidemia. The patient did respond to IV fluids and has remained hemodynamically stable. I have a low clinical index of suspicion that the patient has an occult pulmonary infectious process. The urine is another potential source of infection. However, cultures are currently pending. Infectious diseases is currently following to assist with antimicrobial management. The patient is clinically stable on room air. I have no new additional recommendations from a critical care perspective. 2. History of CLL/peripheral artery disease/history of DVT/hypertension/GERD Complicates care, management, recovery and prognosis. Continue home medications as indicated. This note was generated with [employer] dictation software. It may contain incorrect words, spelling, and punctuation that were not noted in checking the note before signing. HPI Consult Data Date of Consult: 03/18/24 HPI Narrative Reason for Consultation: Sepsis HPI Narrative: The patient is a 68-year-old male, with a history as outlined below, who presented to the emergency department on March with shortness of breath and productive cough. The patient reported that he is currently being followed by a pulmonologist/intensivist at [facility] and has been on treatment with antimicrobials for a multidrug-resistant Pseudomonas infection. He was advised by his provider that if he developed fevers that he should present to the emergency department for evaluation. He stated that he has an established history of mild COPD. The patient does not utilize supplemental oxygen at his baseline. He did report decreased p.o. intake over the days leading up to his hospitalization. The patient does have a history of CLL, along with a history of lung nodules and history of DVT and PE, with systemic anticoagulation being eventually discontinued due to recurrent GI bleeds. On presentation to the emergency department, the patient was documented to be afebrile with a presenting blood pressure of 93/61 mmHg. He was maintaining appropriate oxygen saturations on room air. Laboratory evaluation revealed a white blood cell count of 23,000. Hemoglobin was stable at 8.7 g/dL. Chemistry profile was notable for a creatinine of 1.94. Lactate was elevated at 2.5. Urine analysis was positive for leukocyte esterase and 2+ urine bacteria. Chest imaging demonstrated no acute cardiopulmonary process. No infiltrate or consolidation was identified. The patient received supplemental IV fluid hydration and was initiated on antimicrobials. He was admitted to the medical intensive care unit for further management. Overnight, the patient has remained clinically stable. He is hemodynamically stable and maintaining appropriate oxygen saturations on room air. [facility] Medical History Pulmonary embolism Debility Loss of hearing Wears glasses History of renal disease Cancer Former smoker Chronic cough Shortness of breath on exertion History of edema History of stress test Cardiology follow-up encounter History of heart attack (~2018) History of echocardiogram Tia filter in place Mastoiditis of right side Recurrent deep vein thrombosis (DVT) Depressive disorder due to another medical condition with depressive features History of pulmonary embolism History of DVT (deep vein thrombosis) Iron deficiency anemia due to chronic blood loss Emphysema lung Dyslipidemia Multiple lipomas History of elevated PSA BPH (benign prostatic hyperplasia) AVM (arteriovenous malformation) of colon Chronic GI bleeding Diverticular disease History of skin cancer Multiple lung nodules Cancer of kidney Essential thrombocythemia Hydrocele Femur fracture (~2020) Pulmonary fibrosis DVT (deep venous thrombosis) Obstructive sleep apnea Coronary artery disease CLL (chronic lymphocytic leukemia) Rhodes esophagus COPD (chronic obstructive pulmonary disease) Home Medications ?Medication ?Instructions ?Recorded ?Last Taken ?Type albuterol sulfate 90 mcg/actuation 1 inh inhalation Q4H PRN shortness 12/26/22 02/03/24 05:00 History aerosol inhaler of breath or wheezing omeprazole 40 mg capsule,delayed 40 mg PO DAILY GERD 12/26/22 03/17/24 History release zolpidem 5 mg tablet 10 mg PO QHS PRN PRN sleep 12/26/22 03/15/24 History escitalopram oxalate 5 mg tablet 5 mg PO DAILY Mood 01/30/23 03/17/24 History (Lexapro) evolocumab 140 mg/mL subcutaneous [facility] 03/15/24 History pen injector (Repatha SureClick) rivaroxaban 20 mg tablet (Xarelto) 10 mg PO DAILY Blood Thinner 10/07/23 03/16/24 History fluticasone fur. 100 mcg-umeclid 1 inh inhalation Q24H COPD 12/17/23 02/02/24 History 62.5 mcg-vilant 25 mcg inhalat.powder (Trelegy Ellipta) hydroxyurea 500 mg capsule 1,500 mg PO DAILY Chemo 12/17/23 03/16/24 History magnesium oxide 400 mg (241.3 mg 400 mg PO TID SUPPLEMENT 01/16/24 03/17/24 History magnesium) tablet ferrous sulfate 325 mg (65 mg 325 mg PO DAILY SUPPLEMENT 01/22/24 03/16/24 History iron) tablet (Feosol) calcium carbonate (Calcium 600) 600 mg PO DAILY Supplement 02/03/24 03/16/24 History cholecalciferol (vitamin D3) 50 50 mcg PO DAILY Nutrition 02/03/24 03/16/24 History mcg (2,000 unit) capsule (Vitamin D3) acetaminophen 500 mg tablet 1,000 mg (2 x 500 mg) PO Q6 #0 tabs 02/17/24 03/17/24 Rx ascorbic acid (vitamin C) 500 mg 1 g PO DAILY Supplement 03/17/24 03/16/24 History tablet cyclobenzaprine 10 mg tablet 10 mg PO TID PRN muscle spasm 03/17/24 03/16/24 History metoprolol succinate 100 mg 100 mg PO DAILY BP 03/17/24 03/17/24 History tablet,extended release 24 hr Allergy/AdvReac Type Severity Reaction Status Date / Time Penicillins Allergy PT UNSURE Verified 03/17/24 09:55 OF REACTION doxycycline AdvReac Unknown Upset Verified 03/17/24 09:55 Stomach Family History Father Myocardial infarction Mother Colon cancer Surgical History History of surgery on lower extremity History of cardiac catheterization (~2018) History of heart artery stent (~2018) History of hernia surgery (~2021) H/O kidney removal (~2018) History of bowel resection Hx of tonsillectomy Social History household members: children and other details: Lives with daughter Haydee, who has a , 2 children. Smoking Status: Former smoker pack-years: 10 alcohol intake: never substance use type: does not use, former substance user and other details: marijuana ROS ROS Narrative 10 systems were reviewed with pertinent positives as noted in the HPI above. Physical Exam Const alert and no apparent distress General Appearance: cooperative HEENT normocephalic and head/scalp atraumatic Eyes PERRL, EOMs intact bilaterally and conjunctivae normal Neck supple General: trachea midline Chest inspection of chest normal Resp normal respiratory effort Auscultation: Negative for rales, rhonchi or wheezes Cardio regular rate and regular rhythm GI normal to inspection, nondistended, normoactive bowel sounds Extremity no clubbing, cyanosis or edema Skin no rashes or lesions noted Neuro CN's II-XII intact bilaterally, moves all extremities and no focal motor deficits Psych cooperative and affect normal Lab / Micro Data 03/18/24 05:37 03/18/24 05:37 Labs: Laboratory Results - last 24 hr 03/17/24 11:55: Urine Color Yellow, Urine Clarity Sl. Cloudy, Urine pH 6.5, Ur Specific [place] 1.010, Urine Protein 30 H, Urine Glucose (UA) Normal, Urine Ketones 5 H, Urine Occult Blood Negative, Urine Nitrite Negative, Urine Bilirubin Negative, Urine Urobilinogen 1 H, Ur Leukocyte Esterase 25 H, Urine RBC 0 SEEN, Urine WBC 0-5 SEEN, Ur Squamous Epith Cells 0-5 SEEN, Urine Bacteria 2+, Hyaline Casts 0-5 SEEN, Urine Mucus 0 SEEN 03/17/24 14:30: Sodium 138, Potassium 4.0, Chloride 107, Carbon Dioxide 24.0, Anion Gap 7, BUN 27 H, Creatinine 1.85 H, Estim Creat Clear Calc 40.48, Est GFR (MDRD) Af Amer 47 L, Est GFR (MDRD) Non-Af 39 L, BUN/Creatinine Ratio 14.6, Glucose 147 H, Calcium 9.0, Total Bilirubin 0.80, AST 9 L, ALT 8 L, Alkaline Phosphatase 77, Total Creatine Kinase 18 L, Total Protein 6.2 L, Albumin 3.2, Globulin 3.0, Albumin/Globulin Ratio 1.1 03/17/24 15:28: Lactic Acid 2.0 03/18/24 05:37: WBC 16.6 H, RBC 1.79 L, Hgb 7.4 L, Hct 23.7 L, MCV 132.4 H, MCH 41.3 H, MCHC 31.2 L, RDW Std Deviation 106.8 H, RDW Coeff of Susan 22.1 H, Plt Count 181, MPV 9.8, Neut % (Auto) Not Reportable, Absolute Neuts (auto) 0.5 L, Absolute Lymphs (auto) 15.89 H, Total Counted 100, Neutrophils % (Manual) 3 L, Lymphocytes % (Manual) 96 H*, Monocytes % (Manual) 1, Diff Path Review August foll, Smudge Cells 2+, Platelet Estimate ADEQUATE, RBC Morphology N CHROM, Anisocytosis 1+, Sodium 143, Potassium 3.9, Chloride 114 H, Carbon Dioxide 23.0, Anion Gap 6, BUN 22 H, Creatinine 1.52 H, Estim Creat Clear Calc 46.69, Est GFR (MDRD) Af Amer 59 L, Est GFR (MDRD) Non-Af 48 L, BUN/Creatinine Ratio 14.5, Glucose 105, Calcium 8.5, Total Bilirubin 0.40, AST 8 L, ALT 8 L, Alkaline Phosphatase 66, Total Protein 5.4 L, Albumin 2.7 L, Globulin 2.7, Albumin/Globulin Ratio 1.0 Micro: Microbiology 03/17/24 11:55 Urine, Clean Catch Urine Culture - Preliminary 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
[2024-03-18 14:41] LABS: Pathologist Review Reviewed
[2024-03-18] MEDS: guaiFENesin/D-Methorphan TAB.SR.12H 2 TABLET PO ×2 (15:43→22:50)
[2024-03-18] MEDS: Rivaroxaban 10 MG Tablet PO (18:23)
[2024-03-18] MEDS: Zolpidem Tartrate 5 MG Tablet 10 MG PO (22:50)
[2024-03-19] VITALS (7 sets, daily range): BP systolic 133–144; BP diastolic 68–79; PULSE 77–110; RESP 16–18; TEMP 36.1–36.7; O2SAT 92–97; BMI 27.0
[2024-03-19] MEDS: Magnesium Chloride 64 MG Delay Rel.Tablet 128 MG PO ×3 (06:29→20:37)
[2024-03-19 08:11] LABS: Absolute Lymphocyte Count 6.95 X10^3/uL (0.83-4.51); Absolute Neutrophil Count 1.6 X10^3/uL (2.0-7.7); Basophil# 0.01 X10^3/uL; Basophil% 0.1 % (0-1); Eosinophil# 0.01 X10^3/uL; Eosinophils% 0.1 % (0-5); Hematocrit 24.8 % (40-54); Hemoglobin 7.9 g/dL (13.0-16.5); Lymphocyte # 6.95 X10^3/ul (0.83-4.51); Lymphocyte % 41.3 % (19-41); Mean Corp Hgb Conc 31.9 g/dL (32-36); Mean Corpuscular Hgb 42.2 pg (27.0-32.0); Mean Corpuscular Volume 132.6 fL (80-94); Mean Platelet Vol. 9.8 fl (6.2-12.0); Monocyte# 8.23 X10^3/uL; Monocyte% 48.9 % (0-10); NRBC Flagged by Analyzer 0.2 % (0-5); Neutrophil # 1.55 X10^3/uL (2.7-7.7); Neutrophil % 9.1 % (47-70); POSITIVE DIFFERENTIAL YES; POSITIVE MORPHOLOGY YES; Platelet Count 205 K/mm3 (150-450); RBC Distribution Width CV 21.3 % (11.6-14.6); Red Blood Count 1.87 M/mm3 (4.6-6.2); White Blood Count 16.8 K/mm3 (4.4-11.0)
[2024-03-19 08:14] LABS: Differential Indicated SCAN CRITERIA MET; RBC Distribution Width SD 103.5 fl (35.1-43.9)
[2024-03-19 08:51] LABS: Anisocytosis 1+; Smudge Cells 1+
[2024-03-19] MEDS: Acetaminophen 500 MG Tablet 1000 MG PO ×2 (11:06→19:52)
[2024-03-19] MEDS: guaiFENesin/D-Methorphan TAB.SR.12H 2 TABLET PO ×2 (11:07→20:45)
[2024-03-19] MEDS: Escitalopram Oxalate 10 MG Tablet 5 MG PO (11:08)
[2024-03-19] MEDS: Pantoprazole Sodium 40 MG Tablet PO (11:08)
[2024-03-19] MEDS: Ferrous Sulfate 325 MG Tablet PO (11:08)
[2024-03-19] MEDS: Ascorbic Acid 500 MG Tablet 1000 MG PO (11:09)
[2024-03-19] MEDS: Metoprolol Tartrate 50 MG Tablet 150 MG PO (11:09)
[2024-03-19] MEDS: Meropenem 1 GM in 0.9% Normal Saline (100mL MB+) 100 ML IV ×2 (11:19→20:37)
--- NOTE | 2024-03-19 12:57 | PCM.PN.ID ---
Physical Exam Narrative Feeling a little better, still cough and congestion, no fever Const alert and no apparent distress General Appearance: cooperative Resp Auscultation: rhonchi and wheezes Cardio regular rate and regular rhythm GI soft to palpation, non-tender and non-distended Skin no rashes or lesions noted ID ID: Route of nutrition/ use of supplements: [] Nutritional Intake: [] IV Site: [] Garibay Catheter: [] Assessment & Plan Assessment/Plan (1) Sepsis: QUALIFIERS: Sepsis type: sepsis due to unspecified organism Sepsis acute organ dysfunction status: with acute organ dysfunction PLAN: CXR was clear. Feeling better. Sputum cx 02/2024 with PsA. Sputum cx and bcx ngtd here. Rhinovirus (+). Ucx with some klebs, but neg UA. Cont meropenem for now. Will follow
[2024-03-19 14:14] LABS: Pathologist Review Reviewed
[2024-03-19 14:19] LABS: Pathologist Review Reviewed
--- NOTE | 2024-03-19 16:01 | PN.HOSP_ITS ---
Reason for Visit Reason for Visit: Diagnoses Sepsis, unspecified organism (03/17/24) Objective Data Objective Data Vital Signs: Vital Signs Temp Pulse Resp BP Pulse Ox O2 Del Method O2 Flow Rate 97.0 F L 110 H 18 144/79 H 96 Room Air 2 03/19/24 09:30 03/19/24 11:09 03/19/24 09:30 03/19/24 09:30 03/19/24 09:30 03/19/24 09:30 03/18/24 08:50 Oxygen Flow Rate (L/min) 2 Oxygen Delivery Method Room Air Weight: 188 lb 14.978 oz Body Mass Index (BMI) 27.0 Intake & Output: Intake and Output for Last 24 Hours 03/17/24 03/18/24 03/19/24 23:59 23:59 23:59 Intake Total 4328.75 / 4328.75 1080 / 1080 600 / 600 Output Total 300 / 300 1300 / 1300 1075 / 1075 Balance 4028.75 / 4028.75 -220 / -220 -475 / -475 Lab / Micro Data 03/19/24 07:45 03/18/24 05:37 Labs: Laboratory Results - last 24 hr 03/18/24 05:37: Diff Path Review Reviewed 03/19/24 07:45: WBC 16.8 H, RBC 1.87 L, Hgb 7.9 L, Hct 24.8 L, MCV 132.6 H, MCH 42.2 H, MCHC 31.9 L, RDW Std Deviation 103.5 H, RDW Coeff of Susan 21.3 H, Plt Count 205, MPV 9.8, Immature Gran % (Auto) 0.500, Neut % (Auto) 9.1 L, Lymph % (Auto) 41.3 H, [place] % (Auto) 48.9 H, Eos % (Auto) 0.1, Baso % (Auto) 0.1, A bsolute Neuts (auto) 1.6 L, Absolute Lymphs (auto) 6.95 H, Nucleated RBC % 0.2, Differential Comment COMMENT, Diff Path Review Reviewed, Smudge Cells 1+ H, Anisocytosis 1+ Micro: Microbiology 03/17/24 10:42 Sputum, Expectorated/Coughed Gram Stain - Final 03/17/24 10:42 Sputum, Expectorated/Coughed Respiratory Culture - Final Haemophilus influenzae 03/17/24 10:17 Blood Culture (Wb) - Anticubital Left Blood Culture - Preliminary No growth in 48 hours. 03/17/24 10:46 Blood Culture (Wb) - Right Forearm Blood Culture - Preliminary No growth in 48 hours. 03/17/24 11:55 Urine, Clean Catch Urine Culture - Final Klebsiella pneumoniae sp pneum 03/18/24 08:48 Mucosa - Nasopharyngeal Respiratory Panel (PCR) - Final Rhinovirus 03/17/24 11:55 Urine, Random Legionella Antigen - Final 03/17/24 11:55 Urine, Random Streptococcus pneumoniae Antigen (M - Final 03/17/24 10:42 Mucosa - Nose SARS-CoV-2, Influenza & RSV (PCR) - Final Physical Exam Narrative Seen and examined. Patient has mild tachycardia even on metoprolol to tartrate from 150 mg daily. Blood pressure in normal range. Patient was upset that he could not get antibiotic in the morning yesterday. Pulse ox 96% on room air. No fever. Physical exam General: Alert, Oriented x3, Cooperative HEENT: Atraumatic, PERRLA, EOMI, Normocephalic Oral: Oral mucosa dry. no Gingival or Mucosal Lesions/ Ulcerations Neck: Supple, No JVD, Negative Carotid Bruits Chest wall/Lungs: Air entry diminished in bilateral lung bases. Right lung base coarse crepitations. CALVILLO present Cardiovascular: Regular rate, Regular Rhythm, Normal S1, Normal S2, No M/G/R Abdomen: Bowel Sounds Present, Soft, Non Tender, Non-Distended : No dysuria. No renal angle tenderness. No suprapubic tenderness. Extremities: No edema, Capillary Refill Less than 3 Seconds Skin: Psoriatic patches. Left forearm skin cancer excision recently done. Musculoskeletal: No Tenderness to Palpation of Joints or Extremities Neurological: Cranial nerves II-XII grossly intact, DTR 2+/4. No acute focal neurological deficit. Psych/Mental Status: Flat affect Assessment & Plan Assessment/Plan (1) Sepsis: QUALIFIERS: Sepsis type: sepsis due to unspecified organism S epsis acute organ dysfunction status: with acute organ dysfunction PLAN: Plan 68-year-old gentleman was admitted with fever, acute on chronic shortness of breath, hypotension, and productive cough and clinical features suggestive of sepsis 1. Sepsis most likely due to right lower lobe pneumonia probably secondary to rhinovirus with history of recent Pseudomonas pneumonia COPD exacerbation due to sepsis and pneumonia and: Patient being admitted in ICU. The patient presented with sepsis with clinical indicators of fever, tachypnea, leukocytosis of probably due to pneumonia from Pseudomonas with acute sepsis-related organ dysfunction as evidenced by hypotension, SBP less than 90 mmHg x 2, lactic acidosis in immunocompromised host of CLL and chronic right ear mastoiditis. Discussed with ID Dr. Mcdonnell. Started on broad-spectrum IV antibiotic meropenem. Home Manager consulted. DuoNeb Supportive management for cough, incentive spirometry, PEP and Mucinex D 03/18: Urinary antigens are negative. Blood culture pending. Respiratory panel positive for rhinovirus triple PCR for SARS-CoV-2, flu and RSV are negative. 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 Mild tachycardia. Patient was seen by ID. Continue meropenem. Patient was evaluated by cinnamon grinder and advised to follow with primary electron beam welding machine operator and signed off. 03/19: ID follow-up reviewed. Continue IV meropenem. Patient has mild tachycardia. Overall he does not feel well to go home today. On DuoNeb and IV Solu-Medrol. 2. Chronic right ear mastoiditis/URI: During last admission in October 2023, MRI brain was done which showed severe right mastoiditis. Patient saw ENT doctor, Dr. Lainez as an outpatient and impression was chronic mastoiditis. He completed several courses of antibiotics including Z-Mario, Levaquin and IV antibiotics vancomycin, cefepime and during that hospitalization and discharged on oral antibiotic. Plan for ear tube in May 07 3. RLE claudication and atherosclerosis/PAD: Patient had right UX SPECIALIST/profunda femoral/SFA endarterectomy with sartorius flap by Dr. Isaacs on 02/03/2024. Incision is well-healed over right groin. He went to for follow-up from where he was sent to ED. 4. Carotid stenosis: Patient had CTA head and neck in October 2023 as workup for expressive aphasia in October 2023 which showed mild 40% stenosis of right carotid stenosis and moderate 60% left carotid stenosis. MRI was done which was negative for acute stroke 5. CLL with a history of DVT: Follows Dr. Pascual. Patient on Xarelto continued. He does have an IVC filter placed as he does have a history of GI bleeds 6. Essential HTN: Recovering from hypotension therefore would hold antihypertensive medication 7 GERD? Continue with PPI 5. Anxiety/depression Continue with his home medications DVT:on Xarelto. 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 03/17/24 10:42 Sputum, Expectorated/Coughed Gram Stain - Final 03/17/24 10:42 Sputum, Expectorated/Coughed Respiratory Culture - Preliminary 03/17/24 11:55 Urine, Random Legionella Antigen - Final 03/17/24 11:55 Urine, Random Streptococcus pneumoniae Antigen (M - Final 03/17/24 10:42 Mucosa - Nose SARS-CoV-2, Influenza & RSV (PCR) - Final Laboratory Results 03/17/24 10:17: Diff Path Review Reviewed 03/18/24 05:37: WBC 16.6 H, RBC 1.79 L, Hgb 7.4 L, Hct 23.7 L, MCV 132.4 H, MCH 41.3 H, MCHC 31.2 L, RDW Std Deviation 106.8 H, RDW Coeff of Susan 22.1 H, Plt Count 181, MPV 9.8, Neut % (Auto) Not Reportable, Absolute Neuts (auto) 0.5 L, A bsolute Lymphs (auto) 15.89 H, Total Counted 100, Neutrophils % (Manual) 3 L, L ymphocytes % (Manual) 96 H*, Monocytes % (Manual) 1, Diff Path Review May foll, Smudge Cells 2+, Platelet Estimate ADEQUATE, RBC Morphology N CHROM, Anisocytosis 1+, Sodium 143, Potassium 3.9, Chloride 114 H, Carbon Dioxide 23.0, Anion Gap 6, BUN 22 H, Creatinine 1.52 H, Estim Creat Clear Calc 46.69, Est GFR (MDRD) Af Amer 59 L, Est GFR (MDRD) Non-Af 48 L, BUN/Creatinine Ratio 14.5, Glucose 105, Calcium 8.5, Total Bilirubin 0.40, AST 8 L, ALT 8 L, Alkaline Phosphatase 66, Total Protein 5.4 L, Albumin 2.7 L, Globulin 2.7, Albumin/Globulin Ratio 1.0 Clinical Impression(s) from Imaging Studies Chest X-Ray 03/17/24 10:13 IMPRESSION: No acute cardiopulmonary process identified. Electronically Signed: Angelique Velazquez MD at 11:10 EST , Living will/advanced directive/end of life care: Patient does have living will or advanced directive. His daughter present in ED is power of state's attorney for health. After discussion of benefits/risks procedures involved with full code, DNR CC arrest and DNR CC, the patient and her daughter opted for full code. Patient does want artificial life support including intubation, tube feed, ventilator and/chest compression, central venous catheter, vasopressor and DC shock if needed Total time spent in [id number] encounter in discussion of advanced directive 17 minutes. Charges/Coding Visit Charges Inpatient E&M: 20949 Subs Hosp L2
[2024-03-19] MEDS: Metoprolol Tartrate 50 MG Tablet PO (18:36)
[2024-03-19] MEDS: guaiFENesin 1,200 MG Tablet 1200 MG PO (18:37)
[2024-03-19] MEDS: Ipratropium/Albuterol Sulfate 3 ML AMPUL.NEB INHALATION (19:05)
[2024-03-19] MEDS: Budesonide Respules 0.5 MG/2 ML AMPUL.NEB. INHALATION (19:05)
[2024-03-19] MEDS: Benzonatate 100 MG Capsule PO (19:52)
[2024-03-19] MEDS: Rivaroxaban 10 MG Tablet PO (20:36)
[2024-03-20 03:00] VITALS: BP 116/59; PULSE 84; RESP 17; TEMP 36.4; O2SAT 92
[2024-03-20] MEDS: Magnesium Chloride 64 MG Delay Rel.Tablet 128 MG PO (05:32)
[2024-03-20 05:35] VITALS: BMI 26.5
[2024-03-20 06:42] LABS: Absolute Lymphocyte Count 11.23 X10^3/uL (0.83-4.51); Absolute Neutrophil Count 1.5 X10^3/uL (2.0-7.7); Basophil# 0.01 X10^3/uL; Basophil% 0.1 % (0-1); Eosinophil# 0.02 X10^3/uL; Eosinophils% 0.1 % (0-5); Hematocrit 27.2 % (40-54); Hemoglobin 8.4 g/dL (13.0-16.5); Lymphocyte # 11.23 X10^3/ul (0.83-4.51); Lymphocyte % 58.3 % (19-41); Mean Corp Hgb Conc 30.9 g/dL (32-36); Mean Corpuscular Hgb 41.4 pg (27.0-32.0); Mean Platelet Vol. 9.5 fl (6.2-12.0); Monocyte# 6.34 X10^3/uL; Monocyte% 32.9 % (0-10); NRBC Flagged by Analyzer 0 % (0-5); Neutrophil # 1.53 X10^3/uL (2.7-7.7); Neutrophil % 7.9 % (47-70); POSITIVE DIFFERENTIAL YES; POSITIVE MORPHOLOGY YES; Platelet Count 249 K/mm3 (150-450); RBC Distribution Width CV 21.2 % (11.6-14.6); Red Blood Count 2.03 M/mm3 (4.6-6.2); White Blood Count 19.3 K/mm3 (4.4-11.0)
[2024-03-20 06:51] LABS: Differential Indicated SCAN CRITERIA MET; RBC Distribution Width SD 106.8 fl (35.1-43.9)
[2024-03-20 07:21] LABS: Anion Gap 7 (5-15); BUN 20 mg/dL (7-18); BUN/Creat Ratio 11.8 RATIO (10-20); Calcium,Total 9.4 mg/dL (8.5-10.1); Chloride 112 mmol/L (98-107); EST Glomerular Filtration Rate 43 mL/min (>60); Est Glom Filt Rate - Afr Amer 51 mL/min (>60); Estimated Creatinine Clearance 41.75 ml/min; Glucose 95 mg/dL (74-106); Potassium 4.2 mmol/L (3.5-5.1); Sodium Level 142 mmol/L (136-145)
--- NOTE | 2024-03-20 07:30 | CPS ---
pt refused breathing treatment because he claims they cause him to have coughing fits so bad that make him vomit
[2024-03-20 08:16] LABS: Smudge Cells 2+
[2024-03-20 08:17] LABS: Atypical Lymphocyte 3+ %; Platelet Estimate ADEQUATE (ADEQ)
[2024-03-20 08:19] LABS: Anisocytosis 2+; Macrocytosis 3+; Polychromasia 1+; Schistocytes RARE
[2024-03-20 08:20] LABS: Ovalocyte 3+; Tear Drop Cell 2+
[2024-03-20 09:41] VITALS: BP 135/79; PULSE 110; RESP 18; TEMP 36.2; O2SAT 93
[2024-03-20 09:45] VITALS: PULSE 110
[2024-03-20] MEDS: Metoprolol(XL)Succ 200 MG Tablet PO (09:45)
[2024-03-20] MEDS: Meropenem 1 GM in 0.9% Normal Saline (100mL MB+) 100 ML IV (09:46)
--- NOTE | 2024-03-20 09:48 | DCINST_ITS ---
Discharge Instructions Diet Discharge Diet: 2000 mg Sodium Diet DC O2, CPAP, BIPAP needs Additional Home O2 Discharge instructions: No Dressing / Incision Discharge Activity: Return to Normal Activity Weight Bearing Status: Weight bearing as tolerated Dressing / Incision Call your doctor if you observe: Fever of 101 or Higher, Coldness, Increased Pain, Numbness or Tingling, Change in Color, Inability to urinate, Inability to have a bowel movement, Shortness of breath, Dizziness, Fainting spells, Swelling in the ankles, Chest pain, Prolonged hiccupping, Increased palpitations (irregular heartbeat) and Calf discomfort Follow Up Care When: IN 2 WEEKS Test Results: Test results from this visit will be discussed in further detail at your follow- up appointment, if applicable. Discharge Plan Admission Admit Date/Time: 03/17/24 12:30 Primary Reason for Your Visit: Rhinovirus. Chronic right ear mastoiditis Attending Provider: Eric Oseguera Primary Care Provider: Leighton Orozco [employer] Providers: Gregg Mcdonnell Discharge Orders/Prescriptions Prescriptions: New benzonatate 100 mg Capsule 200 mg PO TID PRN PRN (Reason: Cough) 7 Days Qty: 30 0RF Rx Instructions: [id number] dextromethorphan-guaifenesin 60-1,200 mg tablet extended release 12 hr 1 tab PO BID 7 Days Qty: 14 0RF Continued ascorbic acid (vitamin C) 500 mg tablet 1 g PO DAILY escitalopram oxalate [Lexapro] 5 mg tablet 5 mg PO DAILY Xarelto 20 mg tablet 10 mg PO DAILY Rx Instructions: must administer with evening meal hydroxyurea 500 mg capsule 1,500 mg PO DAILY Rx Instructions: rest on Friday Trelegy Ellipta 100-62.5-25 mcg blister with device 1 inh inhalation Q24H albuterol sulfate 90 mcg/actuation HFA aerosol inhaler 1 inh INHALATION Q4H PRN (Reason: shortness of breath or wheezing) omeprazole 40 mg capsule,delayed release(DR/EC) 40 mg PO DAILY Patient Comments: TAKE 1 CAPSULE BY MOUTH ONCE DAILY zolpidem 5 mg tablet 10 mg PO QHS PRN PRN (Reason: sleep) Repatha SureClick 140 mg/mL pen injector 140 mg SUBCUT QMONTH Patient Comments: INJECT 140 MG SUBCUTANEOUSLY ONCE EVERY MONTH ferrous sulfate [Feosol] 325 mg (65 mg iron) tablet 325 mg PO DAILY cholecalciferol (vitamin D3) [Vitamin D3] 50 mcg (2,000 unit) capsule 50 mcg PO DAILY calcium carbonate [Calcium 600] 600 mg calcium (1,500 mg) tablet 600 mg PO DAILY magnesium oxide 400 mg (241.3 mg magnesium) tablet 400 mg PO TID acetaminophen 500 mg Tablet 1,000 mg PO Q6 Qty: 0 0RF metoprolol succinate 100 mg tablet extended release 24 hr 100 mg PO DAILY cyclobenzaprine 10 mg Tablet 10 mg PO TID PRN (Reason: muscle spasm) Referrals / Follow Up: Gregg Mcdonnell MD [Med Staff - Active Staff] - Within 1 Month Leighton Orozco Chi, MD [Primary Care Provider] - Within 2 Weeks David Lainez MD [Med Staff - Active Staff] - Within 1 Month Disposition Disposition (needs filled in before D/C Order can be placed): Home, Self Care
[2024-03-20] MEDS: Acetaminophen 500 MG Tablet 1000 MG PO (09:54)
[2024-03-20] MEDS: Escitalopram Oxalate 10 MG Tablet 5 MG PO (09:54)
[2024-03-20] MEDS: Ferrous Sulfate 325 MG Tablet PO (09:54)
[2024-03-20] MEDS: Pantoprazole Sodium 40 MG Tablet PO (09:54)
--- NOTE | 2024-03-20 10:22 | PCM.DC.SUM ---
Providers Date of Admission: 03/17/24 Date of Discharge: 03/20/24 Primary Care Physician: Dr. Leighton Orozco MD Consultations 03/17/24 13:44 Consult: Infectious Disease Routine Consulting Provider: Gregg Mcdonnell Reason for Consult: Psuedomonas Pneumonia, sepsis, IC host, CLL EMERGENT Consult: No Notified: Yes Date Notified: 03/17/24 Time Notified: 13:00 Method of Notification: Verbal 03/17/24 17:28 Consult: Neurology Physician Assistant / Pulmonary Medicine Routine Consulting Provider: Intensivists/Pulmonary Med Reason for Consult: Sepsis from pneumonia, IC host EMERGENT Consult: No Notified: Yes Date Notified: 03/17/24 Time Notified: 12:36 Method of Notification: Text Reason For Visit: SEPSIS Diagnosis Discharge Diagnosis (1) Sepsis: Status: Acute Code(s): A41.9 - Sepsis, unspecified organism Qualifiers: Sepsis acute organ dysfunction status: with acute organ dysfunction Sepsis type: sepsis due to unspecified organism Plan 68-year-old gentleman was admitted with fever, acute on chronic shortness of breath, hypotension, and productive cough and clinical features suggestive of sepsis 1. Sepsis most likely due to acute bronchitis probably secondary to rhinovirus with history of recent Pseudomonas pneumonia COPD exacerbation due to sepsis and pneumonia and: Patient being admitted in ICU. The patient presented with sepsis with clinical indicators of fever, tachypnea, leukocytosis of probably due to pneumonia from Pseudomonas with acute sepsis-related organ dysfunction as evidenced by hypotension, SBP less than 90 mmHg x 2, lactic acidosis in immunocompromised host of CLL and chronic right ear mastoiditis. Discussed with ID Dr. Mcdonnell. Started on broad-spectrum IV antibiotic meropenem. Neurology Physician Assistant consulted. DuoNeb Supportive management for cough, incentive spirometry, PEP and Mucinex D 03/18: Urinary antigens are negative. Blood culture pending. Respiratory panel positive for rhinovirus triple PCR for SARS-CoV-2, flu and RSV are negative. 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 Mild tachycardia. Patient was seen by ID. Continue meropenem. Patient was evaluated by medication coordinator and advised to follow with primary snuff container inspector and signed off. 03/19: ID follow-up reviewed. Continue IV meropenem. Patient has mild tachycardia. Overall he does not feel well to go home today. On DuoNeb and IV Solu-Medrol. 03/20: Discussed with ID. Patient does not have pneumonia. Patient had sufficient antibiotic and does not need anymore. Patient was sick from acute rhinovirus bronchitis. Pneumonia ruled out. 2. Chronic right ear mastoiditis/URI: During last admission in October 2023, MRI brain was done which showed severe right mastoiditis. Patient saw ENT doctor, Dr. Lainez as an outpatient and impression was chronic mastoiditis. He completed several courses of antibiotics including Z-Mario, Levaquin and IV antibiotics vancomycin, cefepime and during that hospitalization and discharged on oral antibiotic. Plan for ear tube in May 07: Advised follow-up with ENT Dr. Lainez 3. 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 Isaacs on 02/03/2024. Incision is well-healed over right groin. He went to for follow-up from where he was sent to ED. 4. Carotid stenosis: Patient had CTA head and neck in October 2023 as workup for expressive aphasia in October 2023 which showed mild 40% stenosis of right carotid stenosis and moderate 60% left carotid stenosis. MRI was done which was negative for acute stroke 5. CLL with a history of DVT: Follows Dr. Pascual. Patient on Xarelto continued. He does have an IVC filter placed as he does have a history of GI bleeds 6. Essential HTN: Recovering from hypotension therefore would hold antihypertensive medication 7 GERD? Continue with PPI 5. Anxiety/depression Continue with his home medications 6. Sinus tachycardia: Metoprolol succinate dose increased to 200 mg daily. Follow-up with cardiology office DVT:on Xarelto. Discharge medication reconciliation done. Discharge follow-up instructions completed. Discharge process discussed with the patient and all questions were answered to patient's satisfaction. Follow with PCP in 1 to 2 weeks Total time spent, exact 35 minutes on discharge meds reconciliation, examination, coordination of care with nurses and ancillary staff, review of imaging and blood test and discussion with the patient on follow-up instructions. 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 director of strategic sales 03/17/24 10:42 Sputum, Expectorated/Coughed Gram Stain - Final 03/17/24 10:42 Sputum, Expectorated/Coughed Respiratory Culture - Preliminary 03/17/24 11:55 Urine, Random Legionella Antigen - Final 03/17/24 11:55 Urine, Random Streptococcus pneumoniae Antigen (M - Final 03/17/24 10:42 Mucosa - Nose SARS-CoV-2, Influenza & RSV (PCR) - Final Clinical Impression(s) from Imaging Studies Chest X-Ray 03/17/24 10:13 IMPRESSION: No acute cardiopulmonary process identified. Electronically Signed: Angelique Velazquez MD at 11:10 EST , Living will/advanced directive/end of life care: Patient does have living will or advanced directive. His daughter present in ED is power of state's attorney for health. After discussion of benefits/risks procedures involved with full code, DNR CC arrest and DNR CC, the patient and her daughter opted for full code. Patient does want artificial life support including intubation, tube feed, ventilator and/chest compression, central venous catheter, vasopressor and DC shock if needed Total time spent in [id number] encounter in discussion of advanced directive 17 minutes. Medications at Discharge Home Medications albuterol sulfate 90 mcg/actuation aerosol inhaler 1 inh inhalation Q4H PRN shortness of breath or wheezing 12/26/22 omeprazole 40 mg capsule,delayed release 40 mg PO DAILY GERD 12/26/22 zolpidem 5 mg tablet 10 mg PO QHS PRN PRN sleep 12/26/22 escitalopram oxalate 5 mg tablet (Lexapro) 5 mg PO DAILY Mood 01/30/23 evolocumab 140 mg/mL subcutaneous pen injector (Repatha SureClick) 140 mg subcut QMONTH Heart Health 08/19/23 rivaroxaban 20 mg tablet (Xarelto) 10 mg PO DAILY Blood Thinner 10/07/23 fluticasone fur. 100 mcg-umeclid 62.5 mcg-vilant 25 mcg inhalat.powder (Trelegy Ellipta) 1 inh inhalation Q24H COPD 12/17/23 hydroxyurea 500 mg capsule 1,500 mg PO DAILY Chemo 12/17/23 magnesium oxide 400 mg (241.3 mg magnesium) tablet 400 mg PO TID SUPPLEMENT 01/16/24 ferrous sulfate 325 mg (65 mg iron) tablet (Feosol) 325 mg PO DAILY SUPPLEMENT 01/22/24 calcium carbonate (Calcium 600) 600 mg PO DAILY Supplement 02/03/24 cholecalciferol (vitamin D3) 50 mcg (2,000 unit) capsule (Vitamin D3) 50 mcg PO DAILY Nutrition 02/03/24 acetaminophen 500 mg tablet 1,000 mg (2 x 500 mg) PO Q6 pain #0 tabs 02/17/24 ascorbic acid (vitamin C) 500 mg tablet 1 g PO DAILY Supplement 03/17/24 cyclobenzaprine 10 mg tablet 10 mg PO TID PRN muscle spasm 03/17/24 benzonatate 100 mg capsule 200 mg (2 x 100 mg) PO TID PRN PRN Cough 7 days #30 caps 03/20/24 dextromethorphan-guaifenesin ER 60 mg-1,200 mg tab,extend release,12hr 1 tab PO BID 7 days #14 tabs 03/20/24 metoprolol succinate 100 mg tablet,extended release 24 hr 200 mg (2 x 100 mg) PO DAILY BP 30 days #0 tabs 03/20/24 Physical Exam Narrative Seen and examined. Blood pressure in normal range. Heart rate elevated therefore metoprolol tartrate 150 mg changed to metoprolol succinate 200 mg daily. Discussed with ID. Pulse ox 96% on room air. No fever. Physical exam General: Alert, Oriented x3, Cooperative HEENT: Atraumatic, PERRLA, EOMI, Normocephalic Oral: Oral mucosa dry. no Gingival or Mucosal Lesions/ Ulcerations Neck: Supple, No JVD, Negative Carotid Bruits Chest wall/Lungs: Air entry diminished in bilateral lung bases. Right lung base coarse crepitations. CALVILLO present Cardiovascular: Regular rate, Regular Rhythm, Normal S1, Normal S2, No M/G/R Abdomen: Bowel Sounds Present, Soft, Non Tender, Non-Distended : No dysuria. No renal angle tenderness. No suprapubic tenderness. Extremities: No edema, Capillary Refill Less than 3 Seconds Skin: Psoriatic patches. Left forearm skin cancer excision recently done. Musculoskeletal: No Tenderness to Palpation of Joints or Extremities Neurological: Cranial nerves II-XII grossly intact, DTR 2+/4. No acute focal neurological deficit. Psych/Mental Status: Flat affect Weight / BMI Weight Weight: 185 lb 3.013 oz Body Mass Index (BMI) 26.5 ABG / Lab / Microbiology Data 03/20/24 05:57 03/20/24 05:57 Laboratory: Laboratory Results - last 24 hr 03/18/24 05:37: Diff Path Review Reviewed 03/19/24 07:45: Diff Path Review Reviewed 03/20/24 05:57: WBC 19.3 H, RBC 2.03 L, Hgb 8.4 L, Hct 27.2 L, MCV 134.0 H, MCH 41.4 H, MCHC 30.9 L, RDW Std Deviation 106.8 H, RDW Coeff of Susan 21.2 H, Plt Count 249, MPV 9.5, Immature Gran % (Auto) 0.700, Neut % (Auto) 7.9 L, Lymph % (Auto) 58.3 H, [place] % (Auto) 32.9 H, Eos % (Auto) 0.1, Baso % (Auto) 0.1, Absolute Neuts (auto) 1.5 L, Absolute Lymphs (auto) 11.23 H, Nucleated RBC % 0, Diff Path Review May foll, Atypical Lymphocytes 3+, Smudge Cells 2+, Platelet Estimate ADEQUATE, Polychromasia 1+, Anisocytosis 2+, Macrocytosis 3+, Tear Drop Cells 2+, Ovalocytes 3+, Schistocytes RARE, Sodium 142, Potassium 4.2, Chloride 112 H, Carbon Dioxide 23.0, Anion Gap 7, BUN 20 H, Creatinine 1.70 H, Estim Creat Clear Calc 41.75, Est GFR (MDRD) Af Amer 51 L, Est GFR (MDRD) Non-Af 43 L, BUN/Creatinine Ratio 11.8, Glucose 95, Calcium 9.4 Microbiology: Microbiology 03/17/24 10:42 Sputum, Expectorated/Coughed Gram Stain - Final 03/17/24 10:42 Sputum, Expectorated/Coughed Respiratory Culture - Final Haemophilus influenzae 03/17/24 10:17 Blood Culture (Wb) - Anticubital Left Blood Culture - Preliminary No growth in 48 hours. 03/17/24 10:46 Blood Culture (Wb) - Right Forearm Blood Culture - Preliminary No growth in 48 hours. 03/17/24 11:55 Urine, Clean Catch Urine Culture - Final Klebsiella pneumoniae sp pneum 03/18/24 08:48 Mucosa - Nasopharyngeal Respiratory Panel (PCR) - Final Rhinovirus 03/17/24 11:55 Urine, Random Legionella Antigen - Final 03/17/24 11:55 Urine, Random Streptococcus pneumoniae Antigen (M - Final 03/17/24 10:42 Mucosa - Nose SARS-CoV-2, Influenza & RSV (PCR) - Final D/C Instructions Discharge Diet: 2000 mg Sodium Diet Weight Bearing Status: Weight bearing as tolerated Call your doctor if you observe: Fever of 101 or Higher, Coldness, Increased Pain, Numbness or Tingling, Change in Color, Inability to urinate, Inability to have a bowel movement, Shortness of breath, Dizziness, Fainting spells, Swelling in the ankles, Chest pain, Prolonged hiccupping, Increased palpitations (irregular heartbeat) and Calf discomfort DC O2, CPAP, BIPAP Needs RN Home O2 Qualification: Home O2 Qualification: Is the patient on home oxygen No 03/20/24 10:57 Home O2 Qualification: AT REST 1- Pulse Ox at rest 96 03/20/24 10:57 Home O2 Qualification: WITH AMBULATION 1- Pulse Ox with ambulation 92 03/20/24 10:57 1- Oxygen Flow Rate with 0 03/20/24 10:57 ambulation Additional Home O2 Discharge instructions: No DC home with Oxygen: No When: IN 2 WEEKS Meaningful Use Info Meaningful Use Meaningful Use Diagnoses (Choose all that apply): None applicable Ischemic Stroke Statin Dosing Therapy Reference: STATIN DOSE THERAPY REFERENCE: * Patients > 75 years receive moderate or high dose statin therapy. * Patients 75 years or YOUNGER should receive HIGH intensity statin dose unless contraindicated. You will be required to document reason for non-treatment if statin daily dose does not meet guidelines. HIGH DOSE STATIN THERAPY DAILY Atorvastatin > than or = to 40 mg Rosuvastatin > than or = to 20 mg Amlodipine + Atorvastatin > than or = to 2.5/40 mg Ezetimibe + Simvastatin 10/80 mg Simvastatin 80mg Discharge Plan Admission Admit Date/Time: 03/17/24 12:30 Primary Reason for Your Visit: Rhinovirus. Chronic right ear mastoiditis Attending Provider: Eric Oseguera Primary Care Provider: Leighton Orozco Chi Consulting Providers: Gregg Mcdonnell Discharge Orders/Prescriptions Prescriptions: New benzonatate 100 mg Capsule 200 mg PO TID PRN PRN (Reason: Cough) 7 Days Qty: 30 0RF Rx Instructions: [id number] dextromethorphan-guaifenesin 60-1,200 mg tablet extended release 12 hr 1 tab PO BID 7 Days Qty: 14 0RF Continued ascorbic acid (vitamin C) 500 mg tablet 1 g PO DAILY escitalopram oxalate [Lexapro] 5 mg tablet 5 mg PO DAILY Xarelto 20 mg tablet 10 mg PO DAILY Rx Instructions: must administer with evening meal hydroxyurea 500 mg capsule 1,500 mg PO DAILY Rx Instructions: rest on Friday Tregy Ellipta 100-62.5-25 mcg blister with device 1 inh inhalation Q24H albuterol sulfate 90 mcg/actuation HFA aerosol inhaler 1 inh INHALATION Q4H PRN (Reason: shortness of breath or wheezing) omeprazole 40 mg capsule,delayed release(DR/EC) 40 mg PO DAILY Patient Comments: TAKE 1 CAPSULE BY MOUTH ONCE DAILY zolpidem 5 mg tablet 10 mg PO QHS PRN PRN (Reason: sleep) Repatha SureClick 140 mg/mL pen injector 140 mg SUBCUT QMONTH Patient Comments: INJECT 140 MG SUBCUTANEOUSLY ONCE EVERY MONTH ferrous sulfate [Feosol] 325 mg (65 mg iron) tablet 325 mg PO DAILY cholecalciferol (vitamin D3) [Vitamin D3] 50 mcg (2,000 unit) capsule 50 mcg PO DAILY calcium carbonate [Calcium 600] 600 mg calcium (1,500 mg) tablet 600 mg PO DAILY magnesium oxide 400 mg (241.3 mg magnesium) tablet 400 mg PO TID acetaminophen 500 mg Tablet 1,000 mg PO Q6 Qty: 0 0RF cyclobenzaprine 10 mg Tablet 10 mg PO TID PRN (Reason: muscle spasm) Changed metoprolol succinate 100 mg tablet extended release 24 hr 200 mg PO DAILY 30 Days Qty: 0 0RF Rx Instructions: Hold for heart less than 50 or systolic blood pressure less than 100 mmHg. Referrals / Follow Up: David Lainez MD [Med Staff - Active Staff] - Within 1 Month Gregg Mcdonnell MD [Med Staff - Active Staff] - Within 1 Month Leighton Orozco Chi, MD [Primary Care Provider] - Within 2 Weeks Tawanna Ha, PA [Med Staff - Adv Practice Prof] - Within 1 Month (For tachycardia) Disposition Disposition (needs filled in before D/C Order can be placed): Home, Self Care Charges/Coding Visit Charges Inpatient E&M: 86524 Disch Hosp >30min
[2024-03-20] MEDS: guaiFENesin/D-Methorphan TAB.SR.12H 2 TABLET PO (10:54)
[2024-03-20] MEDS: Ascorbic Acid 500 MG Tablet 1000 MG PO (10:54)
[2024-03-20 10:57] VITALS: O2SAT 92; O2SAT 96
[2024-03-22 14:38] LABS: Pathologist Review Reviewed
== END 2024-03-20 15:11 | disposition home or self-care (01) | DRG 872 ==
LOC: ED 12:42 → ICU 15:39 → PCU 03-18 13:37
PROVIDERS: Admitting Provider Internal Medicine; Emergency Provider Surgery; PCP Family Medicine Geriatric Medicine; Visit Provider Internal Medicine
DX: A41.89 Other specified sepsis (principal); C91.10 Chronic lymphocytic leukemia of B-cell type not having achieved remission; J44.0 Chronic obstructive pulmonary disease with (acute) lower respiratory infection; D64.9 Anemia, unspecified; H70.11 Chronic mastoiditis, right ear; N18.9 Chronic kidney disease, unspecified; I73.9 Peripheral vascular disease, unspecified; I12.9 Hypertensive chronic kidney disease with stage 1 through stage 4 chronic kidney disease, or unspecified chronic kidney disease; I65.23 Occlusion and stenosis of bilateral carotid arteries; F32.A Depression, unspecified; J43.9 Emphysema, unspecified; E78.5 Hyperlipidemia, unspecified; I25.10 Atherosclerotic heart disease of native coronary artery without angina pectoris; I95.9 Hypotension, unspecified; F41.9 Anxiety disorder, unspecified; K21.9 Gastro-esophageal reflux disease without esophagitis; J20.6 Acute bronchitis due to rhinovirus; Z11.52 Encounter for screening for COVID-19; Z88.0 Allergy status to penicillin; Z79.01 Long term (current) use of anticoagulants; Z79.51 Long term (current) use of inhaled steroids; Z79.899 Other long term (current) drug therapy; Z87.891 Personal history of nicotine dependence; Z86.718 Personal history of other venous thrombosis and embolism; Z86.711 Personal history of pulmonary embolism
CPT/HCPCS: 36415; 71046; 80048; 80053; 81001; 82550; 83605; 84484; 85025; 85610; 85730; 87040; 87070; 87077; 87086; 87088; 87186; 87205; 87449; 87631; 87633; 93005; 94640; 94668; 94762; 97162; 97165; 97530; 97802; 99285; J2185; J7030; A4216

== ENCOUNTER → 2024-03-26 | Outpatient (CLI) | payer MEDICARE, OTHER, SELFPAY ==
--- NOTE | 2024-03-26 12:24 | MRI_ITS ---
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 CONTRAST: IV 17CC CLARISCAN COMPARISON: Forearm radiograph, 02/27/2024. FINDINGS: BONES/JOINTS: No marrow space signal abnormality. No fracture. No joint effusion. MUSCLES: No muscular signal abnormality or atrophy. Normal muscular bulk. OTHER SOFT TISSUES: In the volar aspect of the forearm extending from the antecubital region and superficial to the proximal radius, there is a mass following the signal intensity of coronal sequences. No solid or enhancing components are identified and there are no infiltrative changes. The lesion appears well encapsulated and measures approximately 6.8 x 2.9 x 13.8 cm. It appears to be at least bounded by the muscular fascia or perhaps superficially intramuscular of the flexor compartment. 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 It appears to be at least deep to the investing fascia of the flexor compartment, perhaps superficially intramuscular. No suspicious features. Electronically Signed: Kwame Mccullough DO at 11:52 EST ,
== END | disposition home or self-care (01) ==
LOC: MRI 12:14
PROVIDERS: PCP Family Medicine Geriatric Medicine; Referring Provider Family Medicine Geriatric Medicine; Visit Provider Family Medicine Geriatric Medicine
DX: D17.21 Benign lipomatous neoplasm of skin and subcutaneous tissue of right arm (principal)
CPT/HCPCS: 73220; A9575

== ENCOUNTER → 2024-04-16 | Outpatient (CLI) | payer MEDICARE, OTHER, SELFPAY ==
[2024-04-16 13:19] LABS: Absolute Lymphocyte Count 18.91 X10^3/uL (0.83-4.51); Basophil# 0.02 X10^3/uL; Basophil% 0.1 % (0-1); Eosinophil# 0.01 X10^3/uL; Hemoglobin 9.9 g/dL (13.0-16.5); Lymphocyte # 18.91 X10^3/ul (0.83-4.51); Lymphocyte % 57.4 % (19-41); Mean Corp Hgb Conc 31.9 g/dL (32-36); Mean Corpuscular Hgb 43.4 pg (27.0-32.0); Mean Platelet Vol. 9.6 fl (6.2-12.0); Monocyte# 11.93 X10^3/uL; Monocyte% 36.2 % (0-10); NRBC Flagged by Analyzer 0.1 % (0-5); Neutrophil # 1.97 X10^3/uL (2.7-7.7); POSITIVE COUNT YES; POSITIVE DIFFERENTIAL YES; POSITIVE MORPHOLOGY YES; Platelet Count 306 K/mm3 (150-450); RBC Distribution Width CV 19.2 % (11.6-14.6); Red Blood Count 2.28 M/mm3 (4.6-6.2)
[2024-04-16 13:57] LABS: RBC Distribution Width SD 100.6 fl (35.1-43.9)
[2024-04-16 13:59] LABS: Differential Indicated SCAN CRITERIA MET
[2024-04-16 14:03] LABS: Vitamin D,25 Hydroxy 41.2 ng/mL
[2024-04-16 14:15] LABS: ALB/GLOB Ratio 1.2 RATIO (0.9-2.4); AST(SGOT) 7 U/L (15-37); Alanine Aminotransfer ALT/SGPT 14 U/L (16-61); Albumin, Serum 3.8 g/dL (3.2-5.0); Alkaline Phosphatase 93 U/L (45-117); Anion Gap 7 (5-15); BUN 44 mg/dL (7-18); BUN/Creat Ratio 22.1 RATIO (10-20); Calcium,Total 9.2 mg/dL (8.5-10.1); Chloride 109 mmol/L (98-107); Creatinine, Serum 1.99 mg/dL (0.70-1.30); EST Glomerular Filtration Rate 35 mL/min (>60); Est Glom Filt Rate - Afr Amer 43 mL/min (>60); Globulin 3.1 g/dL (2.2-4.2); Glucose 119 mg/dL (74-106); Potassium 4.6 mmol/L (3.5-5.1); Protein, Total 6.9 g/dL (6.4-8.2); Sodium Level 139 mmol/L (136-145); Thyroid Stim Hormone (TSH) 0.799 uIU/mL (0.358-3.740)
[2024-04-16 14:20] LABS: Atypical Lymphocyte 2+ %
[2024-04-16 14:21] LABS: Anisocytosis 1+; Ovalocyte 1+; Tear Drop Cell 1+
[2024-04-19 13:20] LABS: Pathologist Review Reviewed
== END | disposition home or self-care (01) ==
LOC: LAB 12:40
PROVIDERS: PCP Family Medicine Geriatric Medicine; Referring Provider Family Medicine Geriatric Medicine; Visit Provider Family Medicine Geriatric Medicine
DX: I10 Essential (primary) hypertension (principal); E55.9 Vitamin D deficiency, unspecified
CPT/HCPCS: 36415; 80053; 82306; 84443; 85025

== ENCOUNTER → 2024-05-11 | Outpatient (CLI) | payer MEDICARE, OTHER, SELFPAY ==
--- NOTE | 2024-05-11 12:13 | RAD_ITS ---
PROCEDURE: CHEST PA AND LATERAL REASON FOR EXAM: COPD. Shortness of breath. Cough. TECHNIQUE: Frontal and lateral views of the chest. COMPARISON: 03/17/2024 FINDINGS: Mild hyperinflation. Suspect scarring within the right mid lung, laterally. Minimal atelectasis wit hin the lung bases. No new focal airspace consolidation, pneumothorax or pleural effusion is seen. Heart size is within normal limits. Tortuosity involving the thoracic aorta. Osseous thorax appears intact. Mild spondylotic change involving the thoracic spine. Partially imaged IVC filter is noted. RAD/Chest PA and Lateral IMPRESSION: Mild hyperinflation, without focal airspace consolidation. [facility]
[2024-05-11 13:36] LABS: Albumin, Serum 3.7 g/dL (3.2-5.0); BUN 33 mg/dL (7-18); BUN/Creat Ratio 16.3 RATIO (10-20); Calcium,Total 9.2 mg/dL (8.5-10.1); Chloride 107 mmol/L (98-107); Creatinine, Serum 2.02 mg/dL (0.70-1.30); EST Glomerular Filtration Rate 35 mL/min (>60); Est Glom Filt Rate - Afr Amer 42 mL/min (>60); Ferritin 79 ng/mL (26-388); Glucose 104 mg/dL (74-106); Iron 78 ug/dL (65-175); Iron Binding Capacity,Total 367 ug/dL (250-450); Phosphorus 4.2 mg/dL (2.5-4.9); Potassium 4.7 mmol/L (3.5-5.1); Sodium Level 136 mmol/L (136-145)
== END | disposition home or self-care (01) ==
PROVIDERS: PCP Family Medicine Geriatric Medicine; Referring Provider Family Medicine Geriatric Medicine; Visit Provider Family Medicine Geriatric Medicine
DX: R06.2 Wheezing (principal); N18.32 Chronic kidney disease, stage 3b; R68.83 Chills (without fever); D50.9 Iron deficiency anemia, unspecified
CPT/HCPCS: 36415; 71046; 80069; 82728; 83540; 83550; 87631

== ENCOUNTER → 2024-05-19 | Outpatient (CLI) | payer MEDICARE, OTHER, SELFPAY ==
[2024-05-19 18:55] LABS: CRP < 2.90 mg/L (0.0-3.0)
[2024-05-22 14:08] LABS: Endomysial Antibody IgA Negative (Negative); Immunoglobulin A 15 mg/dL (61-437); t-Transglutaminase IgA <2 U/mL (0-3)
== END | disposition home or self-care (01) ==
LOC: MTLAB 15:41
PROVIDERS: PCP Family Medicine Geriatric Medicine; Referring Provider Internal Medicine Gastroenterology; Visit Provider Internal Medicine Gastroenterology
DX: R19.7 Diarrhea, unspecified (principal)
CPT/HCPCS: 36415; 82784; 83516; 86140; 86255

== ENCOUNTER 2024-05-20 13:00 | Outpatient (RCR) | payer MEDICARE, OTHER, SELFPAY ==
--- NOTE | 2024-02-24 15:58 | HP.PTEVAL ---
Patient's Visit Information Visit Information Visit Information: ADINA DAVID is a 68 year old M referred to Physical Therapy by Dr. Leighton Orozco MD with a diagnosis of R endarterectomy, weakness post. 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 Start gentle and work to I.(think sink to start) Subjective Subjective: Has skin CA on hand and had it cut off today. Was at [facility] for fatigue and broken femur(2.5 yrs ago), also blew a hernia at that time. Recently has R calf pain with walking distances. Needed filter in vena cava due to blood clots in legs and told Merlin about calf pain and put on zpac and then seen Dr. Orozco. 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 Sold house and move closer to r. Bottom line is he could not walk > 50 feet without extreme pain in R leg, Dr. Boyer opened up blood vessel in groin and that feels better after that endarterectomy which was 02/03/24. Was in hospital for 15 days due to that procedure and difficulty mobility and then was on TCU. Out on Feb 21 2 days ago. Lives with dtr in basement. with steps with railing and can do them OK and no pain. Mobioity is weak from last two years not being able to move. Cannot walk a block before procedure but feels he could if he wasn't so fatigued. Spends day on TV and getting in hot tub now and then. No regular exercises. Employed. Hobbies: Mar 30 2018 had CA and coughed and broike a rib. No work since then. Had kidney Ca and leukemia. Kidney CA is under control and see Dr. Denis, skin Ca is being treated. No falls, No cane or walker needed but has them. Multiple jabs at [facility] doctors doing the wrong thing and trying to kill him Objective Objective: Walks slow with short steps and wide AMADA I back to PT room 250 feet and suprprised he made it as he has not walked that far since getting out of hospital. Tired and SOB slightly but able. transfer chair I with UE and steps with rail pull I. LE strength hips 3, knees 4- and ankles 4. sensation LE WNL to gross light touch. reflexes 1/3 B patella and achilles. Lots of verbosity but no c/o pain today. Balance/Special Test Scores Functional Gait Assessment Score: 21 % Disability: 30.0000 Lower Extremity Functional Score: 18 TUG Test Time Seconds: 15 30 Second Chair Rise Test Seconds: 7 Goals Goal 1:: FGA 25/30 to diiminish fall risk Goal Time Frame: 4-6 Weeks Goal 2:: I appropriate HEP to limit future problems(possibly gym) Goal Time Frame: 4-6 Weeks Goal 3:: TUG 12 seconds and 30 ssts at 12 Goal Time Frame: 4-6 Weeks Goal 4:: Pt feel 50% better in overall mobility adn activity at home. Goal 5:: 38 LEFS Goal Time Frame: 4-6 Weeks Rehabilitation Potential Physical Therapy Diagnosis: decreased mobility after sedentarism Rehabilitation Potential: Fair Anticipated Interventions Patient/Client Instruction: Educate patient on: Condition For the Purpose of:: To improve nutrient delivery to tissue, To improve muscle performance and motor function and To improve gait and locomotor functions Therapeutic Exercise to Include: Strength training and Gait and locomotor training For the Purpose of:: To improve muscle performance and motor function, To increase tolerance to activity/condition/position and To improve gait and locomotor functions Text: Thank you for the opportunity to evaluate your patient. For Medicare and Medicare HMO plans, please review the plan of care and approve it. It will need to be FAXED BACK to us at [phone] for Medicare purposes. For Medicare only, by signing this I certify the plan of care. Please let me know if there are questions or concerns regarding this plan of care. Physician Signature: Date:
--- NOTE | 2024-04-08 11:08 | HP.PTREVAL ---
Re-Evaluation Intro: Dr. Leighton Orozco MD, It has been my pleasure to treat ADINA DAVID over the last 7 visits for R endarterectomy, weakness post. Please see the progress note below for an update on the physical therapy plan of care! Subjective Subjective: Pt. is here today for his reassessment of how he is doing. Pt. reports being 30% better overall. He reports last week he was going up/down the stairs better, but his R hip has been bothering me a little bit for the past few days. Pt. reports doing his HEP on occasion. He reports he would like to get back to the point where he can drive him self around. Objective Objective/Function: sit to stand 6 without use of UEs, TUG 14.44 without use of AD FGA 18/ Pt. has been having increased R hip pain, posterior laterally. Pt. reports getting up and down stairs at home better, but the past few days have been a little bit more difficult secondary to his R hip pain. No specific cause. He is progressing towards his goals, but slowly. Still pretty functional weak in his quads. I added a 6 min walk goal to increase his overall functional mobility. Plan Plan Plan: Cont. with current POC. I extended him x2 per week for 4 weeks. 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 3) progressive endurance exercises to increase ability to ambulate for longer distances, allowing for increased community mobility. Balance/Gait/Functional tests Balance/Special Test Scores Functional Gait Assessment Score: 18 % Disability: 40.0000 Lower Extremity Functional Score: 24 TUG Test Time Seconds: 14.44 Tug Test: <20 sec.=mostly independent 30 Second Chair Rise Test Seconds: 6 6 Minute Walk Test: Pt. walked 4:03sec. he was able to ambulate 415feet. Required seated rest period secondary to fatigue Goals Goals Goal 1:: FGA 25/30 to diiminish fall risk Goal Time Frame: 4-6 Weeks Goal Progress: Progressing Goal 2:: I appropriate HEP to limit future problems(possibly gym) Goal Time Frame: 4-6 Weeks Goal Progress: Progressing Goal 3:: TUG 12 seconds and 30 ssts at 12 (sit to stand 6 without use of UEs, TUG 14.44 without use of AD) Goal Time Frame: 4-6 Weeks Goal Progress: Progressing Goal 4:: Pt feel 50% better in overall mobility and activity at home. Goal Progress: Progressing Goal 5:: 38 LEFS Goal Time Frame: 4-6 Weeks Goal Progress: Progressing Goal 6:: Pt. to complete 6 min walk test with distances of at least 900 feet indicating increased functional mobility. Anticipated Interventions Anticipated Interventions Patient/Client Instruction: Educate patient on: Condition For the Purpose of:: To improve nutrient delivery to tissue, To improve muscle performance and motor function and To improve gait and locomotor functions Therapeutic Exercise to Include: Strength training and Gait and locomotor training For the Purpose of:: To improve muscle performance and motor function, To increase tolerance to activity/condition/position and To improve gait and locomotor functions Re-Evaluation Ending Re-evaluation ending: Please do not hesitate to contact me at [phone] by phone or if you have questions or concerns regarding this new plan of care! Sincerely, Yehuda Bowens DPT
--- NOTE | 2024-05-25 11:15 | HP.PT.NRP ---
Patient Information Patient Information: ADINA DAVID was seen in my office for initial evaluation on 02/24/24. The following Plan of Care was established for this patient: POC Established Initial Frequency: 2x /Week Initial Duration: 4-6 Weeks Anticipated Interventions Patient/Client Instruction: Educate patient on: Condition For the Purpose of:: To improve nutrient delivery to tissue, To improve muscle performance and motor function and To improve gait and locomotor functions Therapeutic Exercise to Include: Strength training and Gait and locomotor training For the Purpose of:: To improve muscle performance and motor function, To increase tolerance to activity/condition/position and To improve gait and locomotor functions Last Seen Last Seen: This patient was last seen in our office 05/17/24. Pertinent comments regarding their Physical therapy will appear below: Pt seen 10 visits of POC and was slowly improving at 40% better. he called to cancel the rest of his visits due to breaking his r femur. At this point I will be discontinuing this patient from physical therapy. I would be happy to see this patient again in the future if found appropriate by the physician. Thank you! Quentin Weaver, DPT, OCS, CSCS Balance/Gait/Functional tests Balance/Special Test Scores Functional Gait Assessment Score: 18 % Disability: 40.0000 Lower Extremity Functional Score: 24 TUG Test Time Seconds: 14.44 Tug Test: <20 sec.=mostly independent 30 Second Chair Rise Test Seconds: 6 6 Minute Walk Test: Pt. walked 4:03sec. he was able to ambulate 415feet. Required seated rest period secondary to fatigue
== END 2024-05-20 19:00 | disposition home or self-care (01) ==
LOC: PT 13:00
PROVIDERS: PCP Family Medicine Geriatric Medicine; Referring Provider Family Medicine Geriatric Medicine; Visit Provider Family Medicine Geriatric Medicine
DX: R53.81 Other malaise (principal); Z98.890 Other specified postprocedural states
CPT/HCPCS: 97110; 97161; 97530

== ENCOUNTER → 2024-05-20 | Outpatient (CLI) | payer MEDICARE, OTHER, SELFPAY ==
[2024-05-26 07:07] LABS: Calprotectin, Stool 30 ug/g (0-120); Fats, Neutral Normal (.); Fats, Total Normal (.)
[2024-05-28 00:07] LABS: Pancreatic Elastase, Fecal 315 (>200)
== END | disposition home or self-care (01) ==
LOC: LABSPEC 13:02
PROVIDERS: PCP Family Medicine Geriatric Medicine; Referring Provider Internal Medicine Gastroenterology; Visit Provider Internal Medicine Gastroenterology
DX: R19.7 Diarrhea, unspecified (principal)
CPT/HCPCS: 82653; 82705; 83993

== ENCOUNTER 2024-05-26 16:25 | Inpatient (IN) | payer MEDICARE, OTHER, SELFPAY ==
[2024-05-26 16:44] VITALS: BP 166/87; PULSE 101; RESP 21; TEMP 36.7; O2SAT 96
[2024-05-26 18:00] VITALS: BMI 27.4
--- NOTE | 2024-05-26 18:58 | PCM.HP.STD ---
HPI - General General Date of Admission: 05/26/24 Date of Service: 05/26/24 Chief Complaint: Here for rehabilitation. HPI Narrative ADINA DAVID, is a 68 Male who presents with followin05/23/2024 [facility] ED with fall. Fell at top of stairs at friend's house, injured right hip. Carried down, placed in bed, no head injury, on Xarelto for DVT/PE. EMS called. WBC 35.2 (Hx CLL), Creatinine 1.5, Troponin negative, alcohol negative. CT head negative, CT cervical spine negative. X-ray showed right hip fracture. EKG okay. 05/23/2024 Admit to [facility]. Right hip fracture with surrounding hematoma. Tylenol, Tramadol, Percocet, Morphine, Dilaudid for pain. Prepare for surgery. Hold Xarelto. 05/24/2024 Dr. Ramsey performed right hip cephalomedullary nailing. 05/25/2024 Hemoglobin 7.0, no acute events overnight. Oxygen 1 liter per nasal cannula. Transfuse 1 unit PRBC, resume Xarelto tomorrow. D/C IV fluids. PT/OT. 05/26/2024 PT went well, walked few feet with walker, but painful. PT/OT, WBAT RLE, resume Xarelto. PT/OT recommended SNF. 05/26/2024 Admit to TCU with debility, here for rehabilitation, strengthening, prior to discharge home with daughter Haydee. [facility] Medical History (Updated 05/26/24 @ 19:[address] Leighton Orozco MD) History of reduction of closed fracture Anxiety Bladder disease Prostate disease Low iron Pulmonary embolism History of diverticulitis History of GI bleed Former smoker CPAP (continuous positive airway pressure) dependence COPD (chronic obstructive pulmonary disease) Hypertension History of stress test History of echocardiogram Cardiology follow-up encounter Paroxysmal atrial fibrillation Tachycardia LAFB (left anterior fascicular block) PAD (peripheral artery disease) Hyperlipidemia Depression Loss of hearing Cancer Chronic cough Shortness of breath on exertion History of edema History of heart attack (~2019) [place] filter in place Peripheral neuropathy Insomnia GERD (gastroesophageal reflux disease) Essential (primary) hypertension Hypomagnesemia Mastoiditis of right side TIA (transient ischemic attack) Recurrent deep vein thrombosis (DVT) Depressive disorder due to another medical condition with depressive features History of pulmonary embolism History of DVT (deep vein thrombosis) Iron deficiency anemia due to chronic blood loss Emphysema lung Multiple lipomas History of elevated PSA BPH (benign prostatic hyperplasia) AVM (arteriovenous malformation) of colon Chronic GI bleeding Diverticular disease History of skin cancer Multiple lung nodules Cancer of kidney Essential thrombocythemia Femur fracture (~2020) CKD (chronic kidney disease), stage III Debility Pulmonary fibrosis Pulmonary embolism DVT (deep venous thrombosis) Obstructive sleep apnea Coronary artery disease CLL (chronic lymphocytic leukemia) Rhodes esophagus COPD (chronic obstructive pulmonary disease) Home Medications ?Medication ?Instructions ?Recorded ?Last Taken ?Type albuterol sulfate 90 mcg/actuation 1 inh inhalation Q4H PRN shortness 12/26/22 02/03/24 05:00 History aerosol inhaler of breath or wheezing omeprazole 40 mg capsule,delayed 40 mg PO DAILY GERD 12/26/22 04/27/24 07:15 History release zolpidem 5 mg tablet 10 mg PO QHS PRN PRN sleep 12/26/22 03/15/24 History escitalopram oxalate 5 mg tablet 5 mg PO DAILY Mood 01/30/23 04/27/24 History (Lexapro) evolocumab 140 mg/mL subcutaneous 140 mg subcut QMONTH [facility] 08/19/23 03/15/24 History pen injector (Repatha SureVinodick) rivaroxaban 20 mg tablet (Xarelto) 10 mg PO DAILY Blood Thinner 10/07/23 04/21/24 History hydroxyurea 500 mg capsule 1,500 mg PO [id number] Chemo 12/17/23 03/16/24 History ferrous sulfate 325 mg (65 mg 325 mg PO DAILY SUPPLEMENT 01/22/24 03/16/24 History iron) tablet (Feosol) calcium carbonate (Calcium 600) 600 mg PO DAILY Supplement 02/03/24 03/16/24 History ascorbic acid (vitamin C) 500 mg 2 g PO DAILY Supplement 03/17/24 03/16/24 History tablet cyclobenzaprine 10 mg tablet 10 mg PO TID PRN muscle spasm 03/17/24 03/16/24 History cholecalciferol (vitamin D3) 50 400 unit PO DAILY Nutrition 04/06/24 Unknown History mcg (2,000 unit) capsule (Vitamin D3) acetaminophen 500 mg tablet 1,000 mg PO BID pain 04/23/24 04/27/24 History magnesium oxide 800 mg PO QHS Supplement 05/05/24 Unknown History metoprolol succinate 100 mg 100 mg PO DAILY BP #90 tabs 05/05/24 Unknown Rx tablet,extended release 24 hr fluticasone fur. 100 mcg-umeclid 1 inh inhalation Q24H SOB/Wheezing 05/13/24 Unknown History 62.5 mcg-vilant 25 mcg inhalat.powder (Trelegy Ellipta) lactobacillus combination no.4 3 3,000 mmu cells PO QDAY 05/13/24 Unknown History billion cell capsule (Probiotic) magnesium aspart,citrate,oxide 400 mg PO QHS 05/13/24 Unknown History psyllium husk 0.4 gram capsule 0.4 g PO ONCE 05/13/24 Unknown History (Metamucil) budesonide 160 mcg-glycopyr 9 2 inh inhalation BID COPD 05/26/24 Unknown History mcg-formot 4.8 mcg/actuation HFA inhaler (Breztri Aerosphere) calcitriol 0.25 mcg capsule 0.25 mcg PO DAILY Supplement 05/26/24 Unknown History multivitamin with minerals 1 cap PO DAILY Supplement 05/26/24 Unknown History ondansetron HCl 8 mg tablet 8 mg PO DAILY PRN nausea/vomiting 05/26/24 Unknown History oxycodone-acetaminophen 5 mg-325 1 tab PO Q4H Pain 05/26/24 Unknown History mg tablet (Endocet) Allergy/AdvReac Type Severity Reaction Status Date / Time Penicillins Allergy PT UNSURE Verified 05/13/24 14:16 OF REACTION doxycycline AdvReac Unknown Upset Verified 05/13/24 14:16 Stomach Family History Father Myocardial infarction Heart disease CVA (cerebral vascular accident) Mother Colon cancer Surgical History History of hydrocelectomy (~12/2019) History of surgery on lower extremity (02/03/24) History of cardiac catheterization (~2018) S/P IVC filter (~2023) History of heart artery stent (~2018) History of hernia surgery (~2021) H/O kidney removal (~05/2017) History of bowel resection (~2005) Hx of tonsillectomy Social History household members: children and other details: Lives with daughter Haydee, who has a , 2 children. Smoking Status: Former smoker pack-years: 10 alcohol intake: never substance use type: does not use, former substance user and other details: marijuana ROS Constitutional Constitutional: Reports weakness; Denies chills, fever(s) or weight gain ENT HEENT: Denies headache(s), nasal congestion or nasal discharge Cardiovascular Cardiovascular: Denies chest pain or palpitations Respiratory/Chest Respiratory/Chest: Denies cough, excessive phlegm production or shortness of breath with exertion Gastrointestinal Gastrointestinal: Denies abdominal pain, nausea or vomiting Genitourinary Genitourinary: Denies dysuria Musculoskeletal Musculoskeletal: Reports joint pain and other Details: Right hip pain. ; Denies joint swelling Integumentary Integumentary: Denies rash or wounds Neurologic Neurologic: Denies focal weakness, numbness or tingling Psychiatric Psychiatric: Denies anxiety, auditory hallucinations, depression, homicidal ideation or suicidal ideation Vital Signs Vital Signs Vital Signs: 05/26/24 16:44 Temperature 98.1 F Temperature Source Oral Pulse Rate 101 H Respiratory Rate 21 H Blood Pressure 166/87 H Blood Pressure Mean 113 Pulse Ox 96 Oxygen Delivery Method Room Air Physical Exam Const alert General Appearance: cooperative HEENT normocephalic Eyes PERRL and EOMs intact bilaterally Neck supple, no JVD and no carotid bruits Resp normal respiratory effort, normal air movement and clear to auscultation bilaterally Cardio regular rate and regular rhythm GI normal to inspection, nondistended, normoactive bowel sounds, non-tender and non-distended Extremity normal capillary refill Extremity Narrative: Right hip dressings clean, dry, intact. General Extremity: Negative for edema Skin no rashes or lesions noted General Skin Exam: no breakdown Psych affect normal Appearance: appropriate Assessment & Plan Assessment/Plan (1) Debility: (2) Closed right hip fracture: (3) CLL (chronic lymphocytic leukemia): (4) PAOD (peripheral arterial occlusive disease): (5) COPD (chronic obstructive pulmonary disease): (6) Anxiety: (7) Iron deficiency anemia: (8) Chronic diarrhea: (9) Depression: QUALIFIERS: Depression Type: unspecified Qualified Code(s): F32.A - Depression, unspecified (10) Hypomagnesemia: (11) Essential (primary) hypertension: (12) Insomnia: PLAN: Plan 68 year old male with below past medical history hospitalized for right hip fracture, underwent right hip cephalomedullary nail fixation 05/24/[address] Ramsey, postoperative course complicated by acute blood loss anemia requiring 1 unit PRBC transfusion, admitted to TCU with debility, here for rehabilitation, strengthening, prior to discharge home with daughter. Debility - PT/OT. Pain - Tylenol 1000mg q8, Oxycodone 5mg q4 prn pain (1-10). Bowel - senna/colace 2 tablets bid, Magnesium citrate 300mL daily prn. Adult immunization - Administer pneumonia vaccine, covid vaccine, flu vaccine as appropriate. DVT prophylaxis - Xarelto 10mg daily. COPD - Fluticasone/Salmeterol 232-21 1 puff bid, Incruse 1 puff daily, Albuterol 1 puff q4 prn. Iron deficiency anemia - Ferrous sulfate 325m daily, Vitamin C 2000mg daily. Secondary hyperparathyroidism - Calcitriol 0.25mg daily. Calcium deficiency - Calcium 600mg daily. Muscle spasm - Flexeril 10mg tid prn. 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 Thrombocythemia - Hydrea 1500mg 6 days/week. Hypomagnesemia - Magnesium oxide 800mg qhs. Hypertension - Metoprolol succinate 100mg daily. Nutrition - MVI 1 tablet daily. Nausea - Zofran 8mg daily prn. GERD - Pantoprazole 40mg daily. DVT/PE - Xarelto 10mg daily. 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
[2024-05-26] MEDS: cycloBENZAPRine HCl 10 MG Tablet PO (20:07)
[2024-05-26] MEDS: oxyCODONE 5 MG Tablet PO (20:07)
[2024-05-26] MEDS: Magnesium Chloride 64 MG Delay Rel.Tablet 128 MG PO (20:45)
[2024-05-26] MEDS: Acetaminophen 500 MG Tablet 1000 MG PO (20:45)
[2024-05-26] MEDS: Zolpidem Tartrate 5 MG Tablet 10 MG PO (20:46)
[2024-05-26] MEDS: 0.9% Saline Lock 10 ML Syringe IV (21:01)
[2024-05-27] MEDS: Acetaminophen 500 MG Tablet 1000 MG PO ×3 (05:15→20:56)
[2024-05-27] MEDS: cycloBENZAPRine HCl 10 MG Tablet PO (05:16)
[2024-05-27] MEDS: oxyCODONE 5 MG Tablet PO ×3 (05:16→21:02)
[2024-05-27 05:50] LABS: Absolute Lymphocyte Count 15.02 X10^3/uL (0.83-4.51); Absolute Neutrophil Count 1.3 X10^3/uL (2.0-7.7); Basophil# 0.01 X10^3/uL; Eosinophil# 0.02 X10^3/uL; Eosinophils% 0.1 % (0-5); Hematocrit 24.5 % (40-54); Hemoglobin 7.9 g/dL (13.0-16.5); Lymphocyte # 15.02 X10^3/ul (0.83-4.51); Lymphocyte % 69.3 % (19-41); Mean Corp Hgb Conc 32.2 g/dL (32-36); Mean Corpuscular Hgb 40.3 pg (27.0-32.0); Mean Platelet Vol. 9.4 fl (6.2-12.0); Monocyte# 5.31 X10^3/uL; Monocyte% 24.5 % (0-10); NRBC Flagged by Analyzer 0 % (0-5); Neutrophil # 1.25 X10^3/uL (2.7-7.7); Neutrophil % 5.8 % (47-70); POSITIVE DIFFERENTIAL YES; POSITIVE MORPHOLOGY YES; Platelet Count 199 K/mm3 (150-450); Red Blood Count 1.96 M/mm3 (4.6-6.2); White Blood Count 21.7 K/mm3 (4.4-11.0)
[2024-05-27 06:16] LABS: Anion Gap 8 (5-15); BUN 33 mg/dL (7-18); BUN/Creat Ratio 22.3 RATIO (10-20); Calcium,Total 8.7 mg/dL (8.5-10.1); Chloride 108 mmol/L (98-107); Creatinine, Serum 1.48 mg/dL (0.70-1.30); EST Glomerular Filtration Rate 50 mL/min (>60); Est Glom Filt Rate - Afr Amer 60 mL/min (>60); Glucose 89 mg/dL (74-106); Potassium 4.1 mmol/L (3.5-5.1); Sodium Level 139 mmol/L (136-145)
[2024-05-27 07:32] LABS: Differential Indicated SCAN CRITERIA MET
[2024-05-27 07:36] LABS: Anisocytosis 2+; Atypical Lymphocyte 1+ %; Hypochromasia 1+; Smudge Cells 1+
[2024-05-27 07:59] VITALS: BMI 27.4
[2024-05-27] MEDS: Calcium (Elemental) 500 MG Tablet PO (08:11)
[2024-05-27] MEDS: Multivitamins,Ther W-Minerals Tablet 1 TABLET PO (08:11)
[2024-05-27] MEDS: Hydroxyurea 500 MG Capsule 1500 MG PO (08:12)
[2024-05-27] MEDS: Fluticasone/Salmeterol 232-14 Inhaler 1 PUFF INHALATION ×2 (08:12→20:56)
[2024-05-27] MEDS: Umeclidinium Bromide Inhaler 1 PUFF INHALATION (08:13)
[2024-05-27] MEDS: Escitalopram Oxalate 10 MG Tablet 5 MG PO (08:13)
[2024-05-27] MEDS: Pantoprazole Sodium 40 MG Tablet PO (08:14)
[2024-05-27] MEDS: Senna/Docusate Sodium 1 Tablet 2 TABLET PO (08:14)
[2024-05-27] MEDS: Calcitriol 0.25 MCG Capsule PO (08:14)
[2024-05-27 08:15] VITALS: BP 122/88; PULSE 109
[2024-05-27] MEDS: Ascorbic Acid 500 MG Tablet 2000 MG PO (08:15)
[2024-05-27] MEDS: Metoprolol(XL)Succ 100 MG Tablet PO (08:15)
[2024-05-27 08:27] VITALS: BP 122/88; PULSE 109; RESP 18; O2SAT 93
[2024-05-27] MEDS: Tuberculin,Purif.prot.deriv. 50 TU/ML Vial 0.1 ML ID (11:46)
[2024-05-27] MEDS: Ferrous Sulfate 325 MG Tablet PO (11:47)
[2024-05-27] MEDS: 0.9% Saline Lock 10 ML Syringe IV ×2 (11:49→20:59)
[2024-05-27 13:20] VITALS: PULSE 100; RESP 18; O2SAT 95
[2024-05-27 15:04] LABS: Pathologist Review Reviewed
--- NOTE | 2024-05-27 15:37 | PHA.CONS_ITS ---
TCU RX Drug Regimen Review Subjective/Objective Subjective/Objective Subjective: 68 YOM admitted to TCU s/p hospitalization at an outside facility due to a right hip fracture requiring surgical intervention. Patient admitted to TCU 05/26/24 for strengthening and rehabilitation prior to discharge home with his daughter. Objective: Allergies Penicillins Allergy (Verified 05/13/24 14:16) PT UNSURE OF REACTION Occurred in childhood ~ 8 y.o doxycycline Adverse Reaction (Unknown, Verified 05/13/24 14:16) Upset Stomach Current Medications Generic Name Dose Route Start Last Admin Trade Name Freq PRN Reason Stop Dose Admin Acetaminophen 1,000 mg 05/26/24 22:00 05/27/24 13:01 Acetaminophen 500 Mg Tablet PO 1,000 mg Q8 FELICITY Administration Albuterol Sulfate 1 puff 05/26/24 19:51 Albuterol Ih (6.7 Gm) 1 Puff Inhaler INHALATION Q4H PRN shortness of breath or wheezing Ascorbic Acid 2,000 mg 05/27/24 10:00 05/27/24 08:15 Ascorbic Acid 500 Mg Tablet PO 2,000 mg DAILY FELICITY Administration Calcitriol 0.25 mcg 05/27/24 10:00 05/27/24 08:14 Calcitriol 0.25 Mcg Capsule PO 0.25 mcg DAILY FELICITY Administration Calcium Carbonate 500 mg 05/27/24 08:00 05/27/24 08:11 Calcium (Elemental) 500 Mg Tablet PO 500 mg DAILYCM FELICITY Administration Cyclobenzaprine HCl 10 mg 05/26/24 17:12 05/27/24 05:16 Cyclobenzaprine Hcl 10 Mg Tablet PO 10 mg TID PRN Administration muscle spasm Escitalopram Oxalate 5 mg 05/27/24 10:00 05/27/24 08:13 Escitalopram Oxalate 10 Mg Tablet PO 5 mg DAILY FELICITY Administration Ferrous Sulfate 325 mg 05/27/24 12:00 05/27/24 11:47 Ferrous Sulfate 325 Mg Tablet PO 325 mg DAILY@1200 [facility] Administration Hydroxyurea 1,500 mg 05/27/24 10:00 05/27/24 08:12 Hydroxyurea 500 Mg Capsule PO 1,500 mg [id number]@1000 FELICITY Administration Magnesium Chloride 128 mg 05/26/24 22:00 05/26/24 20:45 Magnesium Chloride 64 Mg Delay Rel.Tablet PO 128 mg QHS FELICITY Administration Magnesium Citrate 300 ml 05/26/24 19:17 Magnesium Citrate 300 Ml PO DAILY PRN Constipation Metoprolol Succinate 100 mg 05/27/24 10:00 05/27/24 08:15 Metoprolol(Xl)Succ 100 Mg Tablet PO 100 mg DAILY FELICITY Administration Protocol Multivitamins/Minerals 1 tablet 05/27/24 08:00 05/27/24 08:11 Multivitamins,Ther W-Minerals Tablet PO 1 tablet BREAKFAST FELICITY Administration Ondansetron HCl 8 mg 05/26/24 17:12 Ondansetron 8 Mg Tablet PO DAILY PRN nausea/vomiting Oxycodone HCl 5 mg 05/26/24 19:17 05/27/24 13:04 Oxycodone 5 Mg Tablet PO 5 mg Q4H PRN PRN Administration Pain Score 1-10 or Pre PT/OT Pantoprazole Sodium 40 mg 05/27/24 10:00 05/27/24 08:14 Pantoprazole Sodium 40 Mg Tablet PO 40 mg DAILY FELICITY Administration Rivaroxaban 10 mg 05/27/24 17:00 Rivaroxaban 10 Mg Tablet PO [facility] Fluticasone/Salmeterol 1 puff 05/26/24 22:00 05/27/24 08:12 Fluticasone/Salmeterol 232-14 Inhaler INHALATION 1 puff Q12 FELICITY Administration Senna/Docusate Sodium 2 tablet 05/26/24 22:00 05/27/24 08:14 Senna/Docusate Sodium 1 Tablet PO 2 tablet BID FELICITY Administration Sodium Chloride 10 - 40 ml 05/26/24 17:47 05/27/24 11:49 0.9% Saline Lock 10 Ml Syringe IV 10 ml UD PRN Administration SALINE FLUSH Tuberculin PPD 0.1 ml 06/03/24 10:00 Tuberculin,Purif.Prot.Deriv. 50 Tu/Ml Vial ID 06/03/24 10:01 X1 ONE Umeclidinium [place] 1 puff 05/27/24 10:00 05/27/24 08:13 Umeclidinium [place] Inhaler INHALATION 1 puff DAILY FELICITY Administration Zolpidem Tartrate 10 mg 05/26/24 17:12 05/26/24 20:46 Zolpidem Tartrate 5 Mg Tablet PO 10 mg QHS PRN PRN Administration sleep Problem List Chronic diarrhea (Chronic) Iron deficiency anemia (Acute) Anxiety (Acute) Closed right hip fracture (Acute) Depression (Acute) Insomnia (Acute) Essential (primary) hypertension (Acute) Hypomagnesemia (Acute) Debility (Acute) CLL (chronic lymphocytic leukemia) (Chronic) COPD (chronic obstructive pulmonary disease) (Chronic) Vital Signs Temp Pulse Resp BP Pulse Ox O2 Del Method 98.1 F 109 H 18 122/88 H 93 Room Air 05/26/24 16:44 05/27/24 08:27 05/27/24 08:27 05/27/24 08:27 05/27/24 08:27 05/27/24 08:27 Oxygen Delivery Method Room Air Weight: 84.368 kg Body Mass Index (BMI) 27.4 Sodium 139 mmol/L (136-145) 05/27/24 05:05 Potassium 4.1 mmol/L (3.5-5.1) 05/27/24 05:05 Chloride 108 mmol/L (98-107) H 05/27/24 05:05 Carbon Dioxide 24.0 mmol/L (21.0-32.0) 05/27/24 05:05 Anion Gap 8 (5-15) 05/27/24 05:05 BUN 33 mg/dL (7-18) H 05/27/24 05:05 Creatinine 1.48 mg/dL (0.70-1.30) H 05/27/24 05:05 Est GFR (MDRD) Af Amer 60 mL/min (>60) 05/27/24 05:05 Est GFR (MDRD) Non-Af 50 mL/min (>60) L 05/27/24 05:05 BUN/Creatinine Ratio 22.3 RATIO (10-20) H 05/27/24 05:05 Glucose 89 mg/dL (74-106) 05/27/24 05:05 Assessment/Plan: 1. Pain: Tylenol 1000mg PO Q8h, Oxycodone 5mg PO Q4h PRN Pain 1-10. Please continue to monitor for increased/decreased S/S pain, PRN medication usage, respiratory depression/constipation/oversedation with narcotic usage. - The patient has utilized 3 doses of PRN oxycodone since admission for hip pain rated 7-10/10. Post-med pain assessment rated 0-8/10. 2. Post-OP DVT Prophylaxis: Xarelto 10mg PO daily.Please continue to monitor for S/S bleeding/bruising, S/S blood clot formation, H/H (hgb 7.9, hct 24.5 on 05/27). 3. Hypertension: Toprol XL 100mg PO Daily. Please continue to monitor BP (last 122/88), pulse (last 109 BPM). 4. COPD: Airduo inhalation 1 puff Q12h, Incruse 1 puff daily, albuterol inhaler 1 puff Q4h PRN. Please continue to monitor for increased SOB, HR (last 109), proper inhaler usage techniques, S/S developing thrush infection. 5. Thrombocythemia: Hydroxyurea 1500mg Mo-Sa. Please continue to monitor for headache, infection development, neutropenia, anemia. 6. Secondary Hyperparathyroidism: Calcitriol 0.25mg PO Daily. Please continue to monitor calcium levels (8.7 on 05/27). 7. Muscle Spasm: Flexeril 10mg PO TID PRN. Please continue to monitor for PRN medication usage, drowsiness, dizziness. This is a Beer's Criteria medication which can increase the risk of falls in patients >65 years of age. Please evaluate risk v. benefit of use, especially since pt fell and had a hip fracture. 8. GERD: Protonix 40mg PO Daily. Please continue to monitor for abdominal pain, gas, headache. Please also encourage nonpharmacologic treatments to help minimize GERD flareups, also. 9. Nausea: Zofran 8mg PO daily PRN. Please continue to monitor for headache, medication effectiveness, PRN medication usage. 10. General Wellness: Ascorbic acid 2000mg PO daily, Calcium 500mg PO daily, Ferrous sulfate 325mg PO daily, MVI 1 tab PO daily, magnesium chloride 128mg PO Daily. 11. Bowel: Senna/docusate 2 tab PO BID, Magnesium Citrate 300mL PO Daily PRN. Please continue to monitor for S/S constipation and/or diarrhea. - The patient has had 2 documented bowel movements today, 05/27/24. Assessment/Plan for indications treated with psychotropic medications: 1. Depression: Lexapro 5mg PO daily. Please consider a GDR if clinically indicated, thank you. This is a Beer's Criteria medication which can increase the risk of falls in patients >65 years of age. Please evaluate use given pt history of falls resulting in fractures. 2. Insomnia: Ambien 10mg PO QHS PRN. Please consider a GDR or discontinuation of medication if clinically indicated. This medication can cause oversedation resulting in falls, which patient is at high risk of, thank you. Medical chart and medication regimen reviewed. The following medication irregularities or issues were identified: 1. Depression: Lexapro 5mg PO daily. Please consider a GDR if clinically indicated, thank you. Date Date of Note: 05/27/24
--- NOTE | 2024-05-27 16:36 | CASEMGMT ---
Social Work SW met with patient to complete initial assessment. Pt known to this worker from previous stay. Verified contacts and code status as full code. Educated to Medicare benefit and copay coverage. Pt's goal is to return home living with dtr in basement. SW will continue to follow for DC planning. Janie Robb MSW NURSING SECRETARY
[2024-05-27] MEDS: Rivaroxaban 10 MG Tablet PO (17:47)
[2024-05-27] MEDS: Magnesium Chloride 64 MG Delay Rel.Tablet 128 MG PO (20:56)
[2024-05-27] MEDS: Zolpidem Tartrate 5 MG Tablet 10 MG PO (20:57)
[2024-05-28] MEDS: Acetaminophen 500 MG Tablet 1000 MG PO ×3 (06:30→21:53)
[2024-05-28] MEDS: oxyCODONE 5 MG Tablet PO ×4 (06:30→21:59)
[2024-05-28 08:25] LABS: Hematocrit 27.5 % (40-54); Hemoglobin 8.9 g/dL (13.0-16.5)
[2024-05-28 08:27] VITALS: BP 127/92; PULSE 109; RESP 16; TEMP 36.8; O2SAT 95
[2024-05-28] MEDS: Multivitamins,Ther W-Minerals Tablet 1 TABLET PO (08:29)
[2024-05-28] MEDS: Calcium (Elemental) 500 MG Tablet PO (08:29)
[2024-05-28] MEDS: Escitalopram Oxalate 10 MG Tablet 5 MG PO (08:30)
[2024-05-28] MEDS: Pantoprazole Sodium 40 MG Tablet PO (08:30)
[2024-05-28] MEDS: Calcitriol 0.25 MCG Capsule PO (08:30)
[2024-05-28] MEDS: Hydroxyurea 500 MG Capsule 1500 MG PO (08:32)
[2024-05-28] MEDS: Ascorbic Acid 500 MG Tablet 2000 MG PO (08:32)
[2024-05-28 08:33] VITALS: PULSE 109
[2024-05-28] MEDS: Metoprolol(XL)Succ 100 MG Tablet PO (08:33)
[2024-05-28] MEDS: 0.9% Saline Lock 10 ML Syringe IV ×2 (08:45→20:44)
[2024-05-28 10:34] VITALS: RESP 16; O2SAT 95
--- NOTE | 2024-05-28 13:10 | NURSING ---
Die Press Operator Note; Activity Asset: Complete Siva is a past resident of [facility] and is independent in his choice of daily activities. He prefers independent activities in his room, tv, reading, talking w/others and using his smartphone. Staff will remind him of weekly activities and respect his right to say no.
[2024-05-28] MEDS: Ferrous Sulfate 325 MG Tablet PO (13:29)
--- NOTE | 2024-05-28 14:44 | WOUNDNOTE ---
wound photo: sacrum
--- NOTE | 2024-05-28 14:53 | CHAPLAIN ---
Type of Pastoral Visit _x__ Initial Visit ___ Follow-up Visit ___ On-call Visit ___ General Patient Visit ___ Spiritual Assessment ___ Family Conference ___ Bereavement ___ Rapid Response ___ Code Blue ___ Other (describe below) Pastoral Care Referral From _x__ Patient ___ Family ___ Nurse ___ Physician ___ Viscosity Inspector ___ Working Foreman ___ Other (describe below) Sacrament/Intervention _x__ Active listening ___ Anointing ___ Druze ___ Bereavement ___ Communion ___ Ashlyn exploration ___ _x__ Life review _x__ Prayer ___ Reconciliation ___ Sacrament of Sick _x__ Supportive presence ___ Wedding ___ Other (describe below) Pastoral Comments patient has been seen on numerous admissions and has always had a desire for spiritual care support and personal visits; pt is welcoming again today and gives details on his injury, hospitalizations, and transfers; pt expresses skepticism with medical interventions as he normally does but also admits that he had good care overall in this last episode of injury; pt is talkative and carries the conversation well; when offered a prayer the pt reports on his own developing awareness of God and prayer in his life
[2024-05-28] MEDS: Rivaroxaban 10 MG Tablet PO (16:52)
[2024-05-28] MEDS: Acyclovir 5% Tube 1 APPLIC TOPICAL ×2 (16:54→21:54)
[2024-05-28] MEDS: cycloBENZAPRine HCl 10 MG Tablet PO (20:43)
[2024-05-28] MEDS: Magnesium Chloride 64 MG Delay Rel.Tablet 128 MG PO (21:53)
[2024-05-28] MEDS: Zolpidem Tartrate 5 MG Tablet 10 MG PO (21:58)
[2024-05-29] MEDS: Acetaminophen 500 MG Tablet 1000 MG PO ×3 (05:13→21:28)
[2024-05-29] MEDS: Acyclovir 5% Tube 1 APPLIC TOPICAL ×4 (05:14→21:29)
[2024-05-29 06:54] LABS: Hematocrit 25.2 % (40-54); Hemoglobin 8.3 g/dL (13.0-16.5)
[2024-05-29 08:51] VITALS: BP 129/72; PULSE 115; RESP 20; TEMP 36.7; O2SAT 97
[2024-05-29 08:55] VITALS: PULSE 115
[2024-05-29] MEDS: Calcitriol 0.25 MCG Capsule PO (08:55)
[2024-05-29] MEDS: Metoprolol(XL)Succ 100 MG Tablet PO (08:55)
[2024-05-29] MEDS: Multivitamins,Ther W-Minerals Tablet 1 TABLET PO (08:56)
[2024-05-29] MEDS: Pantoprazole Sodium 40 MG Tablet PO (08:56)
[2024-05-29] MEDS: Escitalopram Oxalate 10 MG Tablet 5 MG PO (08:56)
[2024-05-29] MEDS: Calcium (Elemental) 500 MG Tablet PO (08:57)
[2024-05-29] MEDS: Hydroxyurea 500 MG Capsule 1500 MG PO (08:58)
[2024-05-29] MEDS: Albuterol IH (6.7 GM) 1 PUFF INHALER INHALATION ×2 (09:02→20:08)
[2024-05-29] MEDS: oxyCODONE 5 MG Tablet PO ×3 (09:09→18:20)
[2024-05-29 09:28] LABS: Iron 29 ug/dL (65-175); Iron Binding Capacity,Total 283 ug/dL (250-450); PERCENT IRON SATURATION 10.2 % (15.0-55.0)
[2024-05-29] MEDS: Ascorbic Acid 500 MG Tablet 2000 MG PO (11:54)
[2024-05-29] MEDS: Ferrous Sulfate 325 MG Tablet PO (11:54)
[2024-05-29] MEDS: cycloBENZAPRine HCl 10 MG Tablet PO (12:13)
[2024-05-29 16:00] VITALS: RESP 18
--- NOTE | 2024-05-29 18:30 | NURSING ---
Pt reports he heard a loud popping sound from right hip during coughing episode. Pedal pulses +2, cap refill BLE <3sec. Pt states pain is 10/10, is unable to flex knee, lift right leg. Pt also states he needs Tums for indigestion. Vitals: bp 152/86, p-114, r-20, sp02-94% RA, t-100.3 temporal, 99.5 oral. Called and notified Dr. Orozco, received and read-back orders for XR of right hip and PRN Tums.
--- NOTE | 2024-05-29 18:30 | RAD_ITS ---
PROCEDURE: HIP, UNI W/ PELVIS 2-3 VIEWS REASON FOR EXAM: Popping sound to right hip, 01/21 pain TECHNIQUE: Three views of the right hip COMPARISON: None. FINDINGS: There is a area of lucency at the lesser trochanter of the proximal right femur, which may represent a subacute fracture deformity. Intramedullary rods and hip screws are present in bilateral femurs. Mild degenerative changes are present in bilateral hips and sacroiliac joints. A bowel anastomosis is present in the pelvis. There are surgical clips in the right upper thigh/groin region. Vascular calcifications are present. There are eder present at the skin surface of the right hip with a few foci of gas noted in the soft tissues, possibly due to the recent postoperative status. RAD/HIP, UNI W/ Pelvis 2-3 Views IMPRESSION: 1. Lucency in the region of the lesser trochanter of the proximal right femur, possibly representing an acute or subacute fracture. The fracture fragments are in good alignment. 2. Recent postoperative changes of the right hip with an intramedullary yeimy and hip screw present. 3. Subcutaneous gas and surgical eder at the skin surface noted at the right hip, likely due to the recent postoperative status. If the postoperative status is greater than 1 week, subcutaneous gas m ay be due to an infectious etiology. 4. Intramedullary yeimy and hip screw also present in the left femur. Reading Location: [facility]
--- NOTE | 2024-05-29 18:46 | NURSING ---
Pt post-op day 5 today, shadowing noted to surgical dressing. Current order to remove dressing to surgical incision post-op day 5-7 (surgery 05/24 Dr. Ramsey). Pt states that he talked with Dr. Ramsey's office yesterday, and was instructed not to remove dressing until scheduled follow-up appt (06/08). Placed communication to follow-up with Dr. Ramsey on friday.
[2024-05-29] MEDS: Calcium Carbonate 500 MG Tablet PO (18:59)
[2024-05-29] MEDS: Rivaroxaban 10 MG Tablet PO (19:00)
[2024-05-29] MEDS: Ondansetron 8 MG Tablet PO (19:58)
[2024-05-29] MEDS: Fluticasone/Salmeterol 232-14 Inhaler 1 PUFF INHALATION (20:10)
[2024-05-29 21:00] VITALS: RESP 28; O2SAT 91
--- NOTE | 2024-05-29 21:00 | NURSING ---
notified of hip x-ray results. Staff to follow up with Dr. Ramsey on 05/31/24.
--- NOTE | 2024-05-29 21:10 | RAD_ITS ---
PROCEDURE: CHEST PA AND LATERAL REASON FOR EXAM: Cough, congestion TECHNIQUE: Frontal and lateral views of the chest. COMPARISON: 05/03/2024 FINDINGS: Interstitial prominence is present, in a similar pattern of the previous exam, likely due to chronic interstitial lung disease. There is a focal area of bandlike scarring in the right mid lung field. No pleural effusion or pneumothorax. The cardiomediastinal silhouette is unremarkable. No acute osseous or soft tissue abnormality. Chronic right rib fracture deformity noted at the lateral 7th rib. RAD/Chest PA and Lateral IMPRESSION: 1. No acute cardiopulmonary process. 2. Chronic interstitial prominence with a band of parenchymal scarring in the r ight midlung Reading Location: [facility]
[2024-05-29 21:13] LABS: Basophil# 0.04 X10^3/uL; Basophil% 0.1 % (0-1); Eosinophil# 0.01 X10^3/uL; Hematocrit 24.9 % (40-54); Hemoglobin 8.1 g/dL (13.0-16.5); Lymphocyte % 66.9 % (19-41); Mean Corp Hgb Conc 32.5 g/dL (32-36); Mean Corpuscular Hgb 40.3 pg (27.0-32.0); Mean Corpuscular Volume 123.9 fL (80-94); Mean Platelet Vol. 9.6 fl (6.2-12.0); Monocyte# 5.93 X10^3/uL; Monocyte% 21.4 % (0-10); NRBC Flagged by Analyzer 0.1 % (0-5); Neutrophil # 3.03 X10^3/uL (2.7-7.7); POSITIVE DIFFERENTIAL YES; POSITIVE MORPHOLOGY YES; Platelet Count 217 K/mm3 (150-450); Red Blood Count 2.01 M/mm3 (4.6-6.2); White Blood Count 27.7 K/mm3 (4.4-11.0)
[2024-05-29 21:23] LABS: Differential Indicated SCAN CRITERIA MET
[2024-05-29 21:26] LABS: Anion Gap 9 (5-15); BUN 33 mg/dL (7-18); BUN/Creat Ratio 21.9 RATIO (10-20); Calcium,Total 9.3 mg/dL (8.5-10.1); Chloride 105 mmol/L (98-107); Creatinine, Serum 1.51 mg/dL (0.70-1.30); EST Glomerular Filtration Rate 49 mL/min (>60); Est Glom Filt Rate - Afr Amer 59 mL/min (>60); Estimated Creatinine Clearance 45.52 ml/min; Glucose 132 mg/dL (74-106); Potassium 4.3 mmol/L (3.5-5.1); Sodium Level 134 mmol/L (136-145)
[2024-05-29] MEDS: Magnesium Chloride 64 MG Delay Rel.Tablet 128 MG PO (21:29)
[2024-05-29] MEDS: 0.9% Saline Lock 10 ML Syringe IV (21:32)
[2024-05-29 21:46] LABS: Anisocytosis 3+; Differential Comment SCANNED; Polychromasia RARE
[2024-05-29 21:47] LABS: Atypical Lymphocyte 1+ %; Hypochromasia 2+; Microcytosis 2+
[2024-05-29] MEDS: Cefdinir 300 MG Capsule PO (22:55)
[2024-05-29] MEDS: Azithromycin 250 MG Tablet 500 MG PO (22:55)
[2024-05-29] MEDS: MethylPREDNISolone DosePak 4 MG BOX PO (22:57)
[2024-05-29] MEDS: Zolpidem Tartrate 5 MG Tablet 10 MG PO (23:11)
--- NOTE | 2024-05-30 01:33 | NURSING ---
Patient positive for rhinovirus, influenza A. Dr. Orozco notified of results. New orders for Tamiflu 30mg bid x 5 days.
--- NOTE | 2024-05-30 01:38 | NURSING ---
Late entry; 215 2100; Pt coughing, wheezes inspiratory and expiratory anterior and posterior. Pt refusing inhalers earlier today. He did take them this khoi with good results. Pt has productive cough this khoi with price/brown/blood tinge sputum. Low grade temp 100.3. RR 22-28. SPo2 91% on RA. Notified Dr. Orozco. Orders received. Chest xray, covid and renal panel done, cbc and bmp completed, sputum sent. Placed on droplet precautions. Pt to be started on cefdinir, z nicanor and prednisone. Follow up with surgeon on Friday for hip xray and verification of removal of r hip dressing.
[2024-05-30] MEDS: Oseltamivir Phosphate 30 MG Capsule PO ×3 (02:05→22:10)
[2024-05-30] MEDS: Acyclovir 5% Tube 1 APPLIC TOPICAL ×5 (06:05→22:13)
[2024-05-30] MEDS: Acetaminophen 500 MG Tablet 1000 MG PO ×3 (06:05→22:09)
[2024-05-30] MEDS: oxyCODONE 5 MG Tablet PO ×3 (06:11→18:09)
[2024-05-30 06:36] LABS: Hematocrit 26.2 % (40-54); Hemoglobin 8.5 g/dL (13.0-16.5)
[2024-05-30] MEDS: MethylPREDNISolone DosePak 4 MG BOX PO ×4 (10:25→22:08)
[2024-05-30] MEDS: Cefdinir 300 MG Capsule PO ×2 (10:27→22:09)
[2024-05-30] MEDS: Azithromycin 250 MG Tablet PO (10:27)
[2024-05-30] MEDS: Calcitriol 0.25 MCG Capsule PO (10:28)
[2024-05-30] MEDS: Pantoprazole Sodium 40 MG Tablet PO (10:28)
[2024-05-30] MEDS: Calcium (Elemental) 500 MG Tablet PO (10:28)
[2024-05-30] MEDS: Multivitamins,Ther W-Minerals Tablet 1 TABLET PO (10:28)
[2024-05-30] MEDS: Escitalopram Oxalate 10 MG Tablet 5 MG PO (10:29)
[2024-05-30] MEDS: Ascorbic Acid 500 MG Tablet 2000 MG PO (10:30)
[2024-05-30] MEDS: Albuterol IH (6.7 GM) 1 PUFF INHALER INHALATION ×3 (10:33→22:17)
[2024-05-30 10:38] VITALS: BP 124/66; PULSE 107
[2024-05-30] MEDS: Metoprolol(XL)Succ 100 MG Tablet PO (10:38)
[2024-05-30] MEDS: Ferrous Sulfate 325 MG Tablet PO (12:21)
[2024-05-30] MEDS: guaiFENesin 10 ML UDC (200MG/10ML) PO ×3 (13:28→22:21)
[2024-05-30 14:00] VITALS: RESP 24; O2SAT 93
[2024-05-30 15:14] VITALS: BP 124/66; PULSE 107; RESP 20; TEMP 36.7; O2SAT 96
[2024-05-30] MEDS: Rivaroxaban 10 MG Tablet PO (18:09)
[2024-05-30] MEDS: Zolpidem Tartrate 5 MG Tablet 10 MG PO (22:21)
[2024-05-30] MEDS: Magnesium Chloride 64 MG Delay Rel.Tablet 128 MG PO (22:21)
[2024-05-31] MEDS: Albuterol IH (6.7 GM) 1 PUFF INHALER INHALATION ×2 (05:27→10:00)
[2024-05-31] MEDS: Acyclovir 5% Tube 1 APPLIC TOPICAL ×5 (05:27→22:25)
[2024-05-31] MEDS: Acetaminophen 500 MG Tablet 1000 MG PO ×3 (05:27→22:12)
[2024-05-31] MEDS: guaiFENesin 10 ML UDC (200MG/10ML) PO ×4 (05:27→22:16)
[2024-05-31] MEDS: oxyCODONE 5 MG Tablet PO ×2 (05:33→22:17)
[2024-05-31 05:36] VITALS: O2SAT 93
[2024-05-31 06:15] LABS: Hematocrit 25.3 % (40-54); Hemoglobin 8.2 g/dL (13.0-16.5)
--- NOTE | 2024-05-31 07:12 | RAD_ITS ---
PROCEDURE: Pelvis and left hip/femur radiographs, five views REASON FOR EXAM: Left groin pain after coughing TECHNIQUE: Five views of the pelvis/left hip/left femur were obtained. COMPARISON: Pelvis radiograph 05/29/2024. FINDINGS: Five views of the pelvis and left hip/femur were obtained. The bones are osteopenic. Degenerative changes in the lower lumbar spine. No displaced pelvic fracture. Moderate stool projects over the lower central pelvis. Metallic surgical hardware of the femur/hip joints appearance intact. Intact left femoral intramedullary yeimy. No displaced acute fracture of the left hip/femur. Chronic appearing deformity proximal left meta diaphyseal junction. Mild degenerative changes in the hip joints. RAD/HIP, UNI W/ Pelvis 2-3 Views IMPRESSION: Osteopenia. No acute bony abnormality of the pelvis/left hip/left femur. Intact surgical hardware of the hips/femurs. Mild degenerative changes of the hip joints. Reading Location: [facility]
[2024-05-31] MEDS: MethylPREDNISolone DosePak 4 MG BOX PO ×4 (09:52→22:20)
[2024-05-31] MEDS: Multivitamins,Ther W-Minerals Tablet 1 TABLET PO (09:54)
[2024-05-31] MEDS: Calcium (Elemental) 500 MG Tablet PO (09:54)
[2024-05-31] MEDS: Escitalopram Oxalate 10 MG Tablet 5 MG PO (09:55)
[2024-05-31] MEDS: Cefdinir 300 MG Capsule PO ×2 (09:56→22:11)
[2024-05-31] MEDS: Calcitriol 0.25 MCG Capsule PO (09:56)
[2024-05-31] MEDS: Pantoprazole Sodium 40 MG Tablet PO (09:56)
[2024-05-31] MEDS: Oseltamivir Phosphate 30 MG Capsule PO ×2 (09:56→22:24)
[2024-05-31] MEDS: Azithromycin 250 MG Tablet PO (09:57)
[2024-05-31] MEDS: Ascorbic Acid 500 MG Tablet 2000 MG PO (09:57)
[2024-05-31 09:58] VITALS: BP 141/72; PULSE 92
[2024-05-31] MEDS: Metoprolol(XL)Succ 100 MG Tablet PO (09:58)
[2024-05-31] MEDS: Hydroxyurea 500 MG Capsule 1500 MG PO (09:59)
--- NOTE | 2024-05-31 11:20 | NURSING ---
Offered covid vaccine, VIS provided. Resident declines at a time.
[2024-05-31] MEDS: Ferrous Sulfate 325 MG Tablet PO (13:34)
[2024-05-31 16:00] VITALS: BP 123/71; PULSE 88; RESP 20; TEMP 37.3; O2SAT 94
[2024-05-31 16:08] LABS: Pathologist Review Reviewed
--- NOTE | 2024-05-31 16:11 | NURSING ---
Addendum entered by Kathryn Garcias 05/31/24 16:23: Elvie from Dr. Ramsey's office calls back and states she spoke with Dr. Ramsey and that hip dressing can be changed daily if patient allows or they will change it at appt. She also states Dr. Ramsey will be in office on 06/01 and will review x-ray results. She states she did not need images and to just send x-ray report as long as there was nothing emergent wrong with hip. Made her aware we were waiting on x-ray results from 05/31, but that patient had little pain in hip after episode last night and was able to participate in therapy. X-ray report faxed to office. Original Note: Contacted Dr. Ramsey's office and talked to clinical staff Elvie. She states dressing to right hip is to remain in place until f/u appt on 06/08. She is also made aware of patient pain to groin and of x-ray results and asked if she wanted us to send results to compare. She states she will speak with Dr. Ramsey and call back.
[2024-05-31] MEDS: Rivaroxaban 10 MG Tablet PO (18:13)
[2024-05-31 22:00] VITALS: PULSE 94; O2SAT 95
[2024-05-31] MEDS: Magnesium Chloride 64 MG Delay Rel.Tablet 128 MG PO (22:11)
[2024-05-31] MEDS: Zolpidem Tartrate 5 MG Tablet 10 MG PO (22:16)
--- NOTE | 2024-06-01 04:46 | NURSING ---
All patient care provided in room due to droplet isolation precautions.
[2024-06-01] MEDS: Acyclovir 5% Tube 1 APPLIC TOPICAL ×5 (05:22→22:34)
[2024-06-01] MEDS: Acetaminophen 500 MG Tablet 1000 MG PO ×3 (05:22→22:31)
[2024-06-01] MEDS: oxyCODONE 5 MG Tablet PO ×4 (05:33→22:29)
[2024-06-01] MEDS: guaiFENesin 10 ML UDC (200MG/10ML) PO ×4 (05:33→22:50)
[2024-06-01 06:00] LABS: Hematocrit 24.2 % (40-54); Hemoglobin 7.7 g/dL (13.0-16.5)
[2024-06-01] MEDS: Multivitamins,Ther W-Minerals Tablet 1 TABLET PO (09:55)
[2024-06-01] MEDS: Calcium (Elemental) 500 MG Tablet PO (09:55)
[2024-06-01] MEDS: Escitalopram Oxalate 10 MG Tablet 5 MG PO (09:57)
[2024-06-01] MEDS: Cefdinir 300 MG Capsule PO ×2 (09:57→22:31)
[2024-06-01] MEDS: Pantoprazole Sodium 40 MG Tablet PO (09:58)
[2024-06-01] MEDS: Calcitriol 0.25 MCG Capsule PO (09:58)
[2024-06-01] MEDS: Oseltamivir Phosphate 30 MG Capsule PO ×2 (09:58→22:30)
[2024-06-01] MEDS: Ascorbic Acid 500 MG Tablet 2000 MG PO (09:58)
[2024-06-01] MEDS: Azithromycin 250 MG Tablet PO (09:59)
[2024-06-01] MEDS: MethylPREDNISolone DosePak 4 MG BOX PO ×3 (10:13→22:40)
[2024-06-01] MEDS: Albuterol IH (6.7 GM) 1 PUFF INHALER INHALATION (10:16)
[2024-06-01] MEDS: Hydroxyurea 500 MG Capsule 1500 MG PO (10:20)
[2024-06-01 10:25] VITALS: BP 153/83; PULSE 111
[2024-06-01] MEDS: Metoprolol(XL)Succ 100 MG Tablet PO (10:25)
[2024-06-01 10:35] VITALS: PULSE 111; RESP 20; O2SAT 93
[2024-06-01] MEDS: Ferrous Sulfate 325 MG Tablet PO (10:59)
[2024-06-01 11:06] VITALS: BP 153/83; PULSE 111; RESP 20; O2SAT 93
[2024-06-01 11:38] VITALS: BMI 26.3
--- NOTE | 2024-06-01 14:10 | NURSING ---
ALL CARE GIVEN IN ROOM DUE TO PT IN DROPLET PRECAUTIONS.
--- NOTE | 2024-06-01 14:40 | NURSING ---
Spoke with nursing supervisor brake repair regarding transfusion, plan for now is to have a nurse from the acute side come administer blood around 2pm tomorrow 06/02/24.
--- NOTE | 2024-06-01 15:50 | NURSING ---
PT LET THIS NURSE REMOVE OLD DRESSINGS AND HAD OLD DRY DRAINAGE TO RT HIP,PER ORDER THIS NURSE CLEANED SITES AND APPLIED NEW DRY DRESSINGS TO AREAS. RT HIP HAS 10 KARMEN,MID HIP HAS 4 KARMEN,LOWER THIGH 4 KARMEN. NO S/S OF INFECTION,NON PITTING SWELLING,BRUISES. APPROXIMATED WELL. PT TOLERATED WELL. PT CONTINUES TO HAVE MOIST COUGH AND BRINGS UP THICK BLOOD TINGE/BROWN SPUTUM. DR Ratliff AND RN IS AWARE.
[2024-06-01 16:00] VITALS: TEMP 36.6
--- NOTE | 2024-06-01 17:39 | CON.PCM.GI_ITS ---
HPI Consult Data Date of Consult: 06/01/24 HPI Narrative Reason for Consultation: Anemia HPI Narrative: ADINA DAVID, is a 68 M who present to TCU for strengthening prior to going homeed. He has a past medical history of myeloproliferative neoplasm, right kidney cancer status post radical nephrectomy in 2018, CLL with lung involvement, recent right hip fracture status postrepair. He has history of chronic iron deficiency anemia not on iron therapy. Patricia garcia also has a history of multiple DVTs and PEs currently with multiple clots in his right leg status post IVC filter. He was recently diagnosed with influenza A. He has had multiple GI bleeds in the past secondary to angiodysplastic lesions in his small bowel status post deep enteroscopy and EGD and colonoscopy. Currently is being taken care of by Dr. Jorge Carias. I was called to see him due to a continued decrease in hemoglobin and dark stools admitted by the patient. [facility] Medical History History of reduction of closed fracture Anxiety Bladder disease Prostate disease Low iron Pulmonary embolism History of diverticulitis History of GI bleed Former smoker CPAP (continuous positive airway pressure) dependence COPD (chronic obstructive pulmonary disease) Hypertension History of stress test History of echocardiogram Cardiology follow-up encounter Paroxysmal atrial fibrillation Tachycardia LAFB (left anterior fascicular block) PAD (peripheral artery disease) Hyperlipidemia Depression Loss of hearing Cancer Chronic cough Shortness of breath on exertion History of edema History of heart attack (~2018) Tia filter in place Peripheral neuropathy Insomnia GERD (gastroesophageal reflux disease) Essential (primary) hypertension Hypomagnesemia Mastoiditis of right side TIA (transient ischemic attack) Recurrent deep vein thrombosis (DVT) Depressive disorder due to another medical condition with depressive features History of pulmonary embolism History of DVT (deep vein thrombosis) Iron deficiency anemia due to chronic blood loss Emphysema lung Multiple lipomas History of elevated PSA BPH (benign prostatic hyperplasia) AVM (arteriovenous malformation) of colon Chronic GI bleeding Diverticular disease History of skin cancer Multiple lung nodules Cancer of kidney Essential thrombocythemia Femur fracture (~2020) CKD (chronic kidney disease), stage III Debility Pulmonary fibrosis Pulmonary embolism DVT (deep venous thrombosis) Obstructive sleep apnea Coronary artery disease CLL (chronic lymphocytic leukemia) Rhodes esophagus COPD (chronic obstructive pulmonary disease) Home Medications ?Medication ?Instructions ?Recorded ?Last Taken ?Type albuterol sulfate 90 mcg/actuation 1 inh inhalation Q4 H PRN shortness 12/26/22 02/03/24 05:00 History aerosol inhaler of breath or wheezing omeprazole 40 mg capsule,delayed 40 mg PO DAILY GERD 0 12/26/22 04/27/24 07:15 History release zolpidem 5 mg tablet 10 mg PO QHS PRN PRN sleep 0 12/26/22 03/15/24 History escitalopram oxalate 5 mg tablet 5 mg PO DAILY Mood 04/27/24 History (Lexapro) evolocumab 140 mg/mL [facility] 08/19/23 03/15/24 History pen injector (Repatha SureClick) rivaroxaban 20 mg tablet (Xarelto) 10 mg PO DAILY Bloo d Thinner 10/07/23 04/21/24 History hydroxyurea 500 mg capsule 1,500 mg PO MOTUWETHFRSA Ch emo 12/17/23 03/16/24 History ferrous sulfate 325 mg (65 mg 325 mg PO DAILY SUPPLEME NT 01/22/24 03/16/24 History iron) tablet (Feosol) calcium carbonate (Calcium 600) 600 mg PO DAILY Supple ment 02/03/24 03/16/24 History ascorbic acid (vitamin C) 500 mg 2 g PO DAILY Suppleme nt 03/17/24 03/16/24 History tablet cyclobenzaprine 10 mg tablet 10 mg PO TID PRN muscle s pasm 03/17/24 03/16/24 History cholecalciferol (vitamin D3) 50 400 unit PO DAILY Nutr ition 04/06/24 Unknown History mcg (2,000 unit) capsule (Vitamin D3) acetaminophen 500 mg tablet 1,000 mg PO BID pain 04/2304/27/24 History magnesium oxide 800 mg PO QHS Supplement Unknown History metoprolol succinate 100 mg 100 mg PO DAILY BP #90 tab s 05/05/24 Unknown Rx tablet,extended release 24 hr fluticasone fur. 100 mcg-umeclid 1 inh inhalation Q24H SOB/Wheezing 05/13/24 Unknown History 62.5 mcg-vilant 25 mcg inhalat.powder (Trelegy Ellipta) lactobacillus combination no.4 3 3,000 mmu cells PO QD AY 05/13/24 Unknown History billion cell capsule (Probiotic) magnesium aspart,citrate,oxide 400 mg PO QHS 05/13/24 Unknown History psyllium husk 0.4 gram capsule 0.4 g PO ONCE 05/13/24 Unknown History (Metamucil) budesonide 160 mcg-glycopyr 9 2 inh inhalation BID QUALITY CONTROL TESTER D 05/26/24 Unknown History mcg-formot 4.8 mcg/actuation HFA inhaler (Breztri Aerosphere) calcitriol 0.25 mcg capsule 0.25 mcg PO DAILY Suppleme nt 05/26/24 Unknown History multivitamin with minerals 1 cap PO DAILY Supplement 0 05/26/24 Unknown History ondansetron HCl 8 mg tablet 8 mg PO DAILY PRN nausea/v omiting 05/26/24 Unknown History oxycodone-acetaminophen 5 mg-325 1 tab PO Q4H Pain 04/07 Unknown History mg tablet (Endocet) Allergy/AdvReac Type Severity Reaction Status Date / Time Penicillins Allergy PT UNSURE Verified 05/13/24 14:16 OF REACTION doxycycline AdvReac Unknown Upset Verified 05/13/24 14:16 Stomach Family History Father Myocardial infarction Heart disease CVA (cerebral vascular accident) Mother Colon cancer Surgical History History of hydrocelectomy (~12/2019) History of surgery on lower extremity (02/03/24) History of cardiac catheterization (~2018) S/P IVC filter (~2023) History of heart artery stent (~2018) History of hernia surgery (~2021) H/O kidney removal (~05/2017) History of bowel resection (~2005) Hx of tonsillectomy Social History household members: children and other details: Lives with daughter Haydee, who has a , 2 children. Smoking Status: Former smoker pack-years: 10 alcohol intake: never substance use type: does not use, former substance user and other details: marijuana ROS Constitutional Constitutional: Reports weakness; Denies chills, fever(s) or weight gain ENT HEENT: Denies headache(s), nasal congestion or nasal discharge Cardiovascular Cardiovascular: Denies chest pain or palpitations Respiratory/Chest Respiratory/Chest: Denies cough, excessive phlegm production or shortness of breath with exertion Gastrointestinal Gastrointestinal: Denies abdominal pain, nausea or vomiting Genitourinary Genitourinary: Denies dysuria Musculoskeletal Musculoskeletal: Reports joint pain and other Details: Right hip pain. ; Denies joint swelling Integumentary Integumentary: Denies rash or wounds Neurologic Neurologic: Denies focal weakness, numbness or tingling Psychiatric Psychiatric: Denies anxiety, auditory hallucinations, depression, homicidal ideation or suicidal ideation Physical Exam Const alert, oriented x3, no apparent distress and healthy appearing General Appearance: cooperative GI normal to inspection, nondistended, normoactive bowel sounds, soft to palpation, non-tender and non-distended Percussion: normal to percussion Rectal Exam: deferred Lab / Micro Data 06/01/24 05:06 05/29/24 21:05 Labs: Laboratory Results - last 24 hr 06/01/24 05:06: Hgb 7.7 L, Hct 24.2 L 06/01/24 07:52: Blood Type B POSITIVE, Antibody Screen NEGATIVE, Crossmatch See Detail Micro: Microbiology 05/29/24 21:25 Sputum, Expectorated/Coughed Gram Stain - Final 05/29/24 21:25 Sputum, Expectorated/Coughed Respiratory Culture - Preliminary GNR Poss Pseudomonas sp Gram negative yeimy Imaging Radiology Impression Hip/Pelvis X-Ray 05/31/24 07:12 IMPRESSION: Osteopenia. No acute bony abnormality of the pelvis/left hip/left femur. Intact surgical hardware of the hips/femurs. Mild degenerative changes of the hip joints. [facility] Assessment & Plan Assessment/Plan (1) Debility: (2) Closed right hip fracture: (3) CLL (chronic lymphocytic leukemia): (4) PAOD (peripheral arterial occlusive disease): (5) COPD (chronic obstructive pulmonary disease): (6) Chronic diarrhea: (7) Pulmonary embolism: (8) Chronic GI bleeding: (9) AVM (arteriovenous malformation) of colon: PLAN: Plan 68 year old male with a complicated below past medical history who was recently hospitalized for right hip fracture, underwent right hip cephalomedullary nail fixation 05/24/[address] Ramsey. His postoperative course complicated by acute blood loss anemia requiring 1 unit PRBC transfusion, and influenza. Currently is experiencing signs of upper GI bleed. I had a long talk with him regarding the need for intervention due to his already low hemoglobin and history of GI bleeds. However he would like Dr. Carias to do an EGD colonoscopy on him because he has seen him in the past. He still remains on Xarelto therapy due to his history of multiple DVTs and PEs. I told him that I will be glad to take care of him while he is here but he would like to pursue further care with Dr. Carias. Please notify me if the patient changes his mind. Charges/Coding Visit Charges Inpatient E&M: 43828 [facility] Init L2
[2024-06-01] MEDS: Magnesium Chloride 64 MG Delay Rel.Tablet 128 MG PO (22:30)
[2024-06-01] MEDS: Zolpidem Tartrate 5 MG Tablet 10 MG PO (22:50)
[2024-06-02] VITALS (12 sets, daily range): BP systolic 115–142; BP diastolic 68–91; PULSE 73–111; RESP 20–22; TEMP 36.3–37.6; O2SAT 92–96
[2024-06-02] MEDS: Acyclovir 5% Tube 1 APPLIC TOPICAL ×5 (05:09→20:57)
[2024-06-02] MEDS: Acetaminophen 500 MG Tablet 1000 MG PO ×3 (05:11→20:57)
--- NOTE | 2024-06-02 08:33 | NURSING ---
Mallet Cutter Note; MDS for 06/02/2024 Complete
--- NOTE | 2024-06-02 09:04 | CASEMGMT ---
Social Work IDT met with patient and dtr for care plan meeting. Discussed patient's progress in PT/OT/SN. Educated to Medicare benefit. Provided family with written communication on insurance process and copay coverage during stay. Pt's DC goal is to return home living with dtr. Pt is experiencing pain, and needing minimal assistance with tasks. Pt is currently in room isolation. Pt will continue with therapy and this worker will assist with DC planning. Questions answered. Completed BIMS () and PHQ-2 () for MDS assessment Janie Robb [employer]
[2024-06-02] MEDS: Multivitamins,Ther W-Minerals Tablet 1 TABLET PO (09:52)
[2024-06-02] MEDS: Calcium (Elemental) 500 MG Tablet PO (09:53)
[2024-06-02] MEDS: Hydroxyurea 500 MG Capsule 1500 MG PO (09:53)
[2024-06-02] MEDS: Cefdinir 300 MG Capsule PO ×2 (09:54→20:56)
[2024-06-02] MEDS: Calcitriol 0.25 MCG Capsule PO (09:54)
[2024-06-02] MEDS: Pantoprazole Sodium 40 MG Tablet PO (09:54)
[2024-06-02] MEDS: Oseltamivir Phosphate 30 MG Capsule PO ×2 (09:54→20:57)
[2024-06-02] MEDS: Ascorbic Acid 500 MG Tablet 2000 MG PO (09:54)
[2024-06-02] MEDS: Escitalopram Oxalate 10 MG Tablet 5 MG PO (09:54)
[2024-06-02] MEDS: Azithromycin 250 MG Tablet PO (09:55)
[2024-06-02] MEDS: MethylPREDNISolone DosePak 4 MG BOX PO ×2 (10:16→20:54)
[2024-06-02] MEDS: guaiFENesin 10 ML UDC (200MG/10ML) PO ×3 (10:24→21:05)
[2024-06-02] MEDS: Metoprolol(XL)Succ 100 MG Tablet PO (10:30)
[2024-06-02] MEDS: Ferrous Sulfate 325 MG Tablet PO (13:19)
[2024-06-02] MEDS: Furosemide 20 MG/2 ML VIAL IV (15:12)
[2024-06-02] MEDS: 0.9% Saline Lock 10 ML Syringe IV ×3 (15:12→20:59)
--- NOTE | 2024-06-02 16:49 | PCM.CONS.U ---
HPI Consult Data Date of Consult: 06/02/24 HPI Narrative Reason for Consultation: Groin discomfort HPI Narrative: ADINA DAVID, is a 68 M who presents to rehab after a fracture of his right hip, patient was concerned about a hernia on the left side did not expect today and I do not see any evidence of hernia he does have a history of BPH and he does see me in the outpatient for just BPH management last checkup in the office he was doing well. Also history of a hydrocele in the past but currently he does not have any exam that is consistent with a hernia on the left side recommend his observation he is complaining of pain in that side. For now do not think there is any intervention from urology that is necessary for the patient. Reassurance was given he has been urinating okay without any problems no gross hematuria UTIs etc. [facility] Medical History History of reduction of closed fracture Anxiety Bladder disease Prostate disease Low iron Pulmonary embolism History of diverticulitis History of GI bleed Former smoker CPAP (continuous positive airway pressure) dependence COPD (chronic obstructive pulmonary disease) Hypertension History of stress test History of echocardiogram Cardiology follow-up encounter Paroxysmal atrial fibrillation Tachycardia LAFB (left anterior fascicular block) PAD (peripheral artery disease) Hyperlipidemia Depression Loss of hearing Cancer Chronic cough Shortness of breath on exertion History of edema History of heart attack (~2018) [place] filter in place Peripheral neuropathy Insomnia GERD (gastroesophageal reflux disease) Essential (primary) hypertension Hypomagnesemia Mastoiditis of right side TIA (transient ischemic attack) Recurrent deep vein thrombosis (DVT) Depressive disorder due to another medical condition with depressive features History of pulmonary embolism History of DVT (deep vein thrombosis) Iron deficiency anemia due to chronic blood loss Emphysema lung Multiple lipomas History of elevated PSA BPH (benign prostatic hyperplasia) AVM (arteriovenous malformation) of colon Chronic GI bleeding Diverticular disease History of skin cancer Multiple lung nodules Cancer of kidney Essential thrombocythemia Femur fracture (~2020) CKD (chronic kidney disease), stage III Debility Pulmonary fibrosis Pulmonary embolism DVT (deep venous thrombosis) Obstructive sleep apnea Coronary artery disease CLL (chronic lymphocytic leukemia) Rhodes esophagus COPD (chronic obstructive pulmonary disease) Home Medications ?Medication ?Instructions ?Recorded ?Last Taken ?Type albuterol sulfate 90 mcg/actuation 1 inh inhalation Q4H PRN shortness 12/26/22 02/03/24 05:00 History aerosol inhaler of breath or wheezing omeprazole 40 mg capsule,delayed 40 mg PO DAILY GERD 12/26/22 04/27/24 07:15 History release zolpidem 5 mg tablet 10 mg PO QHS PRN PRN sleep 12/26/22 03/15/24 History escitalopram oxalate 5 mg tablet 5 mg PO DAILY Mood 01/30/23 04/27/24 History (Lexapro) evolocumab 140 mg/mL subcutaneous 140 mg subcut QMONTH Heart Health 08/19/23 03/15/24 History pen injector (Repatha SureClick) rivaroxaban 20 mg tablet (Xarelto) 10 mg PO DAILY Blood Thinner 10/07/23 04/21/24 History hydroxyurea 500 mg capsule 1,500 mg PO MOTUWETHFRSA Chemo 12/17/23 03/16/24 History ferrous sulfate 325 mg (65 mg 325 mg PO DAILY SUPPLEMENT 01/22/24 03/16/24 History iron) tablet (Feosol) calcium carbonate (Calcium 600) 600 mg PO DAILY Supplement 02/03/24 03/16/24 History ascorbic acid (vitamin C) 500 mg 2 g PO DAILY Supplement 03/17/24 03/16/24 History tablet cyclobenzaprine 10 mg tablet 10 mg PO TID PRN muscle spasm 03/17/24 03/16/24 History cholecalciferol (vitamin D3) 50 400 unit PO DAILY Nutrition 04/06/24 Unknown History mcg (2,000 unit) capsule (Vitamin D3) acetaminophen 500 mg tablet 1,000 mg PO BID pain 04/23/24 04/27/24 History magnesium oxide 800 mg PO QHS Supplement 05/05/24 Unknown History metoprolol succinate 100 mg 100 mg PO DAILY BP #90 tabs 05/05/24 Unknown Rx tablet,extended release 24 hr fluticasone fur. 100 mcg-umeclid 1 inh inhalation Q24H SOB/Wheezing 05/13/24 Unknown History 62.5 mcg-vilant 25 mcg inhalat.powder (Trelegy Ellipta) lactobacillus combination no.4 3 3,000 mmu cells PO QDAY 05/13/24 Unknown History billion cell capsule (Probiotic) magnesium aspart,citrate,oxide 400 mg PO QHS 05/13/24 Unknown History psyllium husk 0.4 gram capsule 0.4 g PO ONCE 05/13/24 Unknown History (Metamucil) budesonide 160 mcg-glycopyr 9 2 inh inhalation BID COPD 05/26/24 Unknown History mcg-formot 4.8 mcg/actuation HFA inhaler (Breztri Aerosphere) calcitriol 0.25 mcg capsule 0.25 mcg PO DAILY Supplement 05/26/24 Unknown History multivitamin with minerals 1 cap PO DAILY Supplement 05/26/24 Unknown History ondansetron HCl 8 mg tablet 8 mg PO DAILY PRN nausea/vomiting 05/26/24 Unknown History oxycodone-acetaminophen 5 mg-325 1 tab PO Q4H Pain 05/26/24 Unknown History mg tablet (Endocet) Allergy/AdvReac Type Severity Reaction Status Date / Time Penicillins Allergy PT UNSURE Verified 05/13/24 14:16 OF REACTION doxycycline AdvReac Unknown Upset Verified 05/13/24 14:16 Stomach Family History Father Myocardial infarction Heart disease CVA (cerebral vascular accident) Mother Colon cancer Surgical History History of hydrocelectomy (~12/2019) History of surgery on lower extremity (02/03/24) History of cardiac catheterization (~2018) S/P IVC filter (~2023) History of heart artery stent (~2018) History of hernia surgery (~2021) H/O kidney removal (~05/2017) History of bowel resection (~2005) Hx of tonsillectomy Social History household members: children and other details: Lives with daughter Haydee, who has a , 2 children. Smoking Status: Former smoker pack-years: 10 alcohol intake: never substance use type: does not use, former substance user and other details: marijuana Lab / Micro Data 06/01/24 05:06 05/29/24 21:05 Labs: Laboratory Results - last 24 hr 06/01/24 07:52: Blood Type B POSITIVE, Antibody Screen NEGATIVE, Crossmatch See Detail Micro: Microbiology 05/29/24 21:25 Sputum, Expectorated/Coughed Gram Stain - Final 05/29/24 21:25 Sputum, Expectorated/Coughed Respiratory Culture - Final Pseudomonas aeruginosa Pseudomonas aeruginosa#2 06/02/24 05:15 Nasal Secretion SARS-CoV-2 Antigen (Rapid) - Final
[2024-06-02] MEDS: Magnesium Chloride 64 MG Delay Rel.Tablet 128 MG PO (20:56)
[2024-06-02] MEDS: oxyCODONE 5 MG Tablet PO (20:58)
[2024-06-02] MEDS: Zolpidem Tartrate 5 MG Tablet 10 MG PO (21:54)
--- NOTE | 2024-06-03 00:32 | NURSING ---
Dr. Orozco updated of abdominal/pelvic CT results via telephone. New orders received to consult vascular surgery in the AM for possible DVT in L femoral vein and consult general surgery in the AM for L inguinal hernia. Pt is resting in bed with no complaints at this time.
[2024-06-03] MEDS: guaiFENesin 10 ML UDC (200MG/10ML) PO ×2 (03:34→22:21)
[2024-06-03 05:45] LABS: Absolute Lymphocyte Count 20.62 X10^3/uL (0.83-4.51); Absolute Neutrophil Count 3.2 X10^3/uL (2.0-7.7); Basophil# 0.03 X10^3/uL; Basophil% 0.1 % (0-1); Hematocrit 30.6 % (40-54); Hemoglobin 9.7 g/dL (13.0-16.5); Lymphocyte # 20.62 X10^3/ul (0.83-4.51); Lymphocyte % 70.7 % (19-41); Mean Corp Hgb Conc 31.7 g/dL (32-36); Mean Corpuscular Hgb 34.8 pg (27.0-32.0); Mean Corpuscular Volume 109.7 fL (80-94); Mean Platelet Vol. 9.7 fl (6.2-12.0); Monocyte# 5.06 X10^3/uL; Monocyte% 17.3 % (0-10); NRBC Flagged by Analyzer 0.1 % (0-5); Neutrophil # 3.19 X10^3/uL (2.7-7.7); POSITIVE DIFFERENTIAL YES; POSITIVE MORPHOLOGY YES; Platelet Count 278 K/mm3 (150-450); Red Blood Count 2.79 M/mm3 (4.6-6.2); White Blood Count 29.2 K/mm3 (4.4-11.0)
[2024-06-03 06:11] LABS: Anion Gap 9 (5-15); BUN 45 mg/dL (7-18); BUN/Creat Ratio 26.5 RATIO (10-20); Calcium,Total 9.5 mg/dL (8.5-10.1); Chloride 103 mmol/L (98-107); EST Glomerular Filtration Rate 43 mL/min (>60); Est Glom Filt Rate - Afr Amer 51 mL/min (>60); Estimated Creatinine Clearance 40.43 ml/min; Glucose 120 mg/dL (74-106); Potassium 4.6 mmol/L (3.5-5.1); Sodium Level 137 mmol/L (136-145)
[2024-06-03] MEDS: Acyclovir 5% Tube 1 APPLIC TOPICAL ×5 (06:20→22:29)
[2024-06-03] MEDS: Acetaminophen 500 MG Tablet 1000 MG PO ×3 (06:20→22:25)
[2024-06-03 06:45] LABS: Differential Indicated SCAN CRITERIA MET
[2024-06-03 06:48] VITALS: PULSE 88; O2SAT 93
[2024-06-03 09:13] LABS: Atypical Lymphocyte 1+ %; Smudge Cells 1+
[2024-06-03] MEDS: Hydroxyurea 500 MG Capsule 1500 MG PO (09:45)
[2024-06-03] MEDS: Pantoprazole Sodium 40 MG Tablet PO (09:46)
[2024-06-03] MEDS: Ascorbic Acid 500 MG Tablet 2000 MG PO (09:46)
[2024-06-03] MEDS: Escitalopram Oxalate 10 MG Tablet 5 MG PO (09:46)
[2024-06-03] MEDS: Calcitriol 0.25 MCG Capsule PO (09:47)
[2024-06-03] MEDS: Multivitamins,Ther W-Minerals Tablet 1 TABLET PO (09:47)
[2024-06-03] MEDS: Oseltamivir Phosphate 30 MG Capsule PO (09:48)
[2024-06-03] MEDS: Calcium (Elemental) 500 MG Tablet PO (09:48)
[2024-06-03 09:55] VITALS: PULSE 86
[2024-06-03] MEDS: Metoprolol(XL)Succ 100 MG Tablet PO (09:55)
[2024-06-03] MEDS: MethylPREDNISolone DosePak 4 MG BOX PO (10:27)
--- NOTE | 2024-06-03 10:43 | NURSING ---
Messaged Dr. Cary about surgical consult. Says he's been out for a week and wouldn't be able to see him soon. He will pass the consult along to Dr. Macias, asked that nursing update the order to reflect that.
[2024-06-03] MEDS: Meropenem 1 GM in 0.9% Normal Saline (100mL MB+) 100 ML IV ×2 (10:55→23:04)
[2024-06-03] MEDS: oxyCODONE 5 MG Tablet PO ×3 (11:05→22:22)
[2024-06-03] MEDS: Morphine 4 MG/ML Syringe IV (11:21)
--- NOTE | 2024-06-03 11:21 | PCM.CONS.GEN ---
Assessment & Plan Assessment/Plan (1) Flu: (2) Pneumonia due to Pseudomonas: PLAN: Flu on tamiflu, also rhinovirus (+). Sputum with pseudomonas x2, will start meropenem. Will follow, thank you HPI Consult Data Date of Consult: 06/03/24 HPI Narrative Reason for Consultation: pneumonia HPI Narrative: ADINA DAVID, is a 68 M with h/o CLL, PAD, CKD, presented to TCU from [place] after fall with fracture requiring IM nail placement in R hip on 05/24/24. Had been admitted with pneumonia 05/03/24, sent home with cefdinir. Now in TCU, several days of cough with green/brown sputum, dyspnea, body aches, not feeling well. Flu (+), rhinovirus (+). Now sputum cx also (+). Full ROS performed and neg except as noted above. [facility] Medical History History of reduction of closed fracture Anxiety Bladder disease Prostate disease Low iron Pulmonary embolism History of diverticulitis History of GI bleed Former smoker CPAP (continuous positive airway pressure) dependence COPD (chronic obstructive pulmonary disease) Hypertension History of stress test History of echocardiogram Cardiology follow-up encounter Paroxysmal atrial fibrillation Tachycardia LAFB (left anterior fascicular block) PAD (peripheral artery disease) Hyperlipidemia Depression Loss of hearing Cancer Chronic cough Shortness of breath on exertion History of edema History of heart attack (~2018) Tia filter in place Peripheral neuropathy Insomnia GERD (gastroesophageal reflux disease) Essential (primary) hypertension Hypomagnesemia Mastoiditis of right side TIA (transient ischemic attack) Recurrent deep vein thrombosis (DVT) Depressive disorder due to another medical condition with depressive features History of pulmonary embolism History of DVT (deep vein thrombosis) Iron deficiency anemia due to chronic blood loss Emphysema lung Multiple lipomas History of elevated PSA BPH (benign prostatic hyperplasia) AVM (arteriovenous malformation) of colon Chronic GI bleeding Diverticular disease History of skin cancer Multiple lung nodules Cancer of kidney Essential thrombocythemia Femur fracture (~2020) CKD (chronic kidney disease), stage III Debility Pulmonary fibrosis Pulmonary embolism DVT (deep venous thrombosis) Obstructive sleep apnea Coronary artery disease CLL (chronic lymphocytic leukemia) Rhodes esophagus COPD (chronic obstructive pulmonary disease) Home Medications ?Medication ?Instructions ?Recorded ?Last Taken ?Type albuterol sulfate 90 mcg/actuation 1 inh inhalation Q4H PRN shortness 09/14/23 10/22/24 05:00 History aerosol inhaler of breath or wheezing omeprazole 40 mg capsule,delayed 40 mg PO DAILY GERD 12/26/22 04/27/24 07:15 History release zolpidem 5 mg tablet 10 mg PO QHS PRN PRN sleep 12/26/22 03/15/24 History escitalopram oxalate 5 mg tablet 5 mg PO DAILY Mood 01/30/23 04/27/24 History (Lexapro) evolocumab 140 mg/mL subcutaneous 140 mg subcut QMONTH Heart Health 08/19/23 03/15/24 History pen injector (Repatha SureClick) rivaroxaban 20 mg tablet (Xarelto) 10 mg PO DAILY Blood Thinner 10/07/23 04/21/24 History hydroxyurea 500 mg capsule 1,500 mg PO MOTUWETHFRSA Chemo 12/17/23 03/16/24 History ferrous sulfate 325 mg (65 mg 325 mg PO DAILY SUPPLEMENT 01/22/24 03/16/24 History iron) tablet (Feosol) calcium carbonate (Calcium 600) 600 mg PO DAILY Supplement 02/03/24 03/16/24 History ascorbic acid (vitamin C) 500 mg 2 g PO DAILY Supplement 03/17/24 03/16/24 History tablet cyclobenzaprine 10 mg tablet 10 mg PO TID PRN muscle spasm 03/17/24 03/16/24 History cholecalciferol (vitamin D3) 50 400 unit PO DAILY Nutrition 04/06/24 Unknown History mcg (2,000 unit) capsule (Vitamin D3) acetaminophen 500 mg tablet 1,000 mg PO BID pain 04/23/24 04/27/24 History magnesium oxide 800 mg PO QHS Supplement 05/05/24 Unknown History metoprolol succinate 100 mg 100 mg PO DAILY BP #90 tabs 05/05/24 Unknown Rx tablet,extended release 24 hr fluticasone fur. 100 mcg-umeclid 1 inh inhalation Q24H SOB/Wheezing 05/13/24 Unknown History 62.5 mcg-vilant 25 mcg inhalat.powder (Trelegy Ellipta) lactobacillus combination no.4 3 3,000 mmu cells PO QDAY 05/13/24 Unknown History billion cell capsule (Probiotic) magnesium aspart,citrate,oxide 400 mg PO QHS 05/13/24 Unknown History psyllium husk 0.4 gram capsule 0.4 g PO ONCE 05/13/24 Unknown History (Metamucil) budesonide 160 mcg-glycopyr 9 2 inh inhalation BID COPD 05/26/24 Unknown History mcg-formot 4.8 mcg/actuation HFA inhaler (Breztri Aerosphere) calcitriol 0.25 mcg capsule 0.25 mcg PO DAILY Supplement 05/26/24 Unknown History multivitamin with minerals 1 cap PO DAILY Supplement 05/26/24 Unknown History ondansetron HCl 8 mg tablet 8 mg PO DAILY PRN nausea/vomiting 05/26/24 Unknown History oxycodone-acetaminophen 5 mg-325 1 tab PO Q4H Pain 05/26/24 Unknown History mg tablet (Endocet) Allergy/AdvReac Type Severity Reaction Status Date / Time Penicillins Allergy PT UNSURE Verified 05/13/24 14:16 OF REACTION doxycycline AdvReac Unknown Upset Verified 05/13/24 14:16 Stomach Family History Father Myocardial infarction Heart disease CVA (cerebral vascular accident) Mother Colon cancer Surgical History History of hydrocelectomy (~12/2019) History of surgery on lower extremity (02/03/24) History of cardiac catheterization (~2018) S/P IVC filter (~2023) History of heart artery stent (~2018) History of hernia surgery (~2021) H/O kidney removal (~05/2017) History of bowel resection (~2005) Hx of tonsillectomy Social History household members: children and other details: Lives with daughter Haydee, who has a , 2 children. Smoking Status: Former smoker pack-years: 10 alcohol intake: never substance use type: does not use, former substance user and other details: marijuana Physical Exam Const alert, oriented x3 and no apparent distress General Appearance: cooperative HEENT normocephalic and head/scalp atraumatic Eyes PERRL and EOMs intact bilaterally Neck supple and No nodes Resp Auscultation: rhonchi Cardio regular rate and regular rhythm GI soft to palpation, non-tender and non-distended Extremity General Extremity: Negative for edema Skin no rashes or lesions noted Neuro CN's II-XII intact bilaterally Lab / Micro Data Attestation: I reviewed the patient's lab results. 06/03/24 05:07 06/03/24 05:07 Labs: Laboratory Results - last 24 hr 06/01/24 07:52: Blood Type B POSITIVE, Antibody Screen NEGATIVE, Crossmatch See Detail 06/03/24 05:07: WBC 29.2 H, RBC 2.79 L, Hgb 9.7 L, Hct 30.6 L, MCV 109.7 H D, MCH 34.8 H, MCHC 31.7 L, RDW Std Deviation TNP, RDW Coeff of Susan TNP, Plt Count 278, MPV 9.7, Immature Gran % (Auto) 0.900, Neut % (Auto) 11.0 L, Lymph % (Auto) 70.7 H, [place] % (Auto) 17.3 H, Eos % (Auto) 0.0, Baso % (Auto) 0.1, Absolute Neuts (auto) 3.2, Absolute Lymphs (auto) 20.62 H, Nucleated RBC % 0.1, Differential Comment COMMENT, Diff Path Review May foll, Atypical Lymphocytes 1+, Smudge Cells 1+ H, Sodium 137, Potassium 4.6, Chloride 103, Carbon Dioxide 25.0, Anion Gap 9, BUN 45 H, Creatinine 1.70 H, Estim Creat Clear Calc 40.43, Est GFR (MDRD) Af Amer 51 L, Est GFR (MDRD) Non-Af 43 L, BUN/Creatinine Ratio 26.5 H, Glucose 120 H, Calcium 9.5 Micro: Microbiology 05/29/24 21:25 Sputum, Expectorated/Coughed Gram Stain - Final 05/29/24 21:25 Sputum, Expectorated/Coughed Respiratory Culture - Final Pseudomonas aeruginosa Pseudomonas aeruginosa#2 06/02/24 05:15 Nasal Secretion SARS-CoV-2 Antigen (Rapid) - Final
[2024-06-03] MEDS: Ferrous Sulfate 325 MG Tablet PO (11:22)
--- NOTE | 2024-06-03 11:44 | CON.PCM.SX_ITS ---
Assessment & Plan Assessment/Plan (1) Pneumonia due to Pseudomonas: PLAN: Patient has Pseudomonas and influenza A. Patient is coughing considerably. (2) Left inguinal hernia: PLAN: Patient has a left inguinal hernia containing fat on CT scan. I was unable to reduce it due to pain. I also do not believe I can take him to surgery due to the plethora of comorbidities and other issues acutely being treated. The patient has a possible DVT in the left femoral vein as well and he has an IVC filter in place due to past history of PE. The patient is recovering from right hip surgery with fractures. I would like to repair this inguinal hernia after the patient is over his influenza and Pseudomonas pneumonia. It may wait as an outpatient if he can tolerate it but if he is still having a lot of pain after his pneumonia has been treated then I will take him for repair. I will see him again in the morning and continue to follow. Ye Macias MD Pager: [facility] [address] [place] [address], [address] [place] [address] Office: HPI Consult Data Date of Consult: 06/03/24 HPI Narrative HPI Narrative: ADINA DAVID, is a 68 M who is admitted to the hospital after right hip surgery. The patient was coughing and started having left groin pain. He has a history of a right inguinal hernia repair. He reports that the left drain hurts worse than his right pelvis when he coughs. He denies nausea or vomiting or fevers or chills. [facility] Medical History History of reduction of closed fracture Anxiety Bladder disease Prostate disease Low iron Pulmonary embolism History of diverticulitis History of GI bleed Former smoker CPAP (continuous positive airway pressure) dependence COPD (chronic obstructive pulmonary disease) Hypertension History of stress test History of echocardiogram Cardiology follow-up encounter Paroxysmal atrial fibrillation Tachycardia LAFB (left anterior fascicular block) PAD (peripheral artery disease) Hyperlipidemia Depression Loss of hearing Cancer Chronic cough Shortness of breath on exertion History of edema History of heart attack (~2019) Calvin filter in place Peripheral neuropathy Insomnia GERD (gastroesophageal reflux disease) Essential (primary) hypertension Hypomagnesemia Mastoiditis of right side TIA (transient ischemic attack) Recurrent deep vein thrombosis (DVT) Depressive disorder due to another medical condition with depressive features History of pulmonary embolism History of DVT (deep vein thrombosis) Iron deficiency anemia due to chronic blood loss Emphysema lung Multiple lipomas History of elevated PSA BPH (benign prostatic hyperplasia) AVM (arteriovenous malformation) of colon Chronic GI bleeding Diverticular disease History of skin cancer Multiple lung nodules Cancer of kidney Essential thrombocythemia Femur fracture (~2020) CKD (chronic kidney disease), stage III Debility Pulmonary fibrosis Pulmonary embolism DVT (deep venous thrombosis) Obstructive sleep apnea Coronary artery disease CLL (chronic lymphocytic leukemia) Rhodes esophagus COPD (chronic obstructive pulmonary disease) Home Medications ?Medication ?Instructions ?Recorded ?Last Taken ?Type albuterol sulfate 90 mcg/actuation 1 inh inhalation Q4 H PRN shortness 12/26/22 02/03/24 05:00 History aerosol inhaler of breath or wheezing omeprazole 40 mg capsule,delayed 40 mg PO DAILY GERD 0 12/26/22 04/27/24 07:15 History release zolpidem 5 mg tablet 10 mg PO QHS PRN PRN sleep 0 12/26/22 03/15/24 History escitalopram oxalate 5 mg tablet 5 mg PO DAILY Mood 04/27/24 History (Lexapro) evolocumab 140 mg/mL subcutaneous 140 mg subcut QMONTH Heart Health 08/19/23 03/15/24 History pen injector (Repatha SureClick) rivaroxaban 20 mg tablet (Xarelto) 10 mg PO DAILY Bloo d Thinner 10/07/23 04/21/24 History hydroxyurea 500 mg capsule 1,500 mg PO MOTUWETHFRSA Ch emo 12/17/23 03/16/24 History ferrous sulfate 325 mg (65 mg 325 mg PO DAILY SUPPLEME NT 01/22/24 03/16/24 History iron) tablet (Feosol) calcium carbonate (Calcium 600) 600 mg PO DAILY Supple ment 02/03/24 03/16/24 History ascorbic acid (vitamin C) 500 mg 2 g PO DAILY Suppleme nt 03/17/24 03/16/24 History tablet cyclobenzaprine 10 mg tablet 10 mg PO TID PRN muscle s pasm 03/17/24 03/16/24 History cholecalciferol (vitamin D3) 50 400 unit PO DAILY Nutr ition 04/06/24 Unknown History mcg (2,000 unit) capsule (Vitamin D3) acetaminophen 500 mg tablet 1,000 mg PO BID pain 04/2304/27/24 History magnesium oxide 800 mg PO QHS Supplement Unknown History metoprolol succinate 100 mg 100 mg PO DAILY BP #90 tab s 05/05/24 Unknown Rx tablet,extended release 24 hr fluticasone fur. 100 mcg-umeclid 1 inh inhalation Q24H SOB/Wheezing 05/13/24 Unknown History 62.5 mcg-vilant 25 mcg inhalat.powder (Trelegy Ellipta) lactobacillus combination no.4 3 3,000 mmu cells PO QD AY 05/13/24 Unknown History billion cell capsule (Probiotic) magnesium aspart,citrate,oxide 400 mg PO QHS 05/13/24 Unknown History psyllium husk 0.4 gram capsule 0.4 g PO ONCE 05/13/24 Unknown History (Metamucil) budesonide 160 mcg-glycopyr 9 2 inh inhalation BID LIBRARY AIDE D 05/26/24 Unknown History mcg-formot 4.8 mcg/actuation HFA inhaler (Breztri Aerosphere) calcitriol 0.25 mcg capsule 0.25 mcg PO DAILY Suppleme nt 05/26/24 Unknown History multivitamin with minerals 1 cap PO DAILY Supplement 0 05/26/24 Unknown History ondansetron HCl 8 mg tablet 8 mg PO DAILY PRN nausea/v omiting 05/26/24 Unknown History oxycodone-acetaminophen 5 mg-325 1 tab PO Q4H Pain 04/07 Unknown History mg tablet (Endocet) Allergy/AdvReac Type Severity Reaction Status Date / Time Penicillins Allergy PT UNSURE Verified 05/13/24 14:16 OF REACTION doxycycline AdvReac Unknown Upset Verified 05/13/24 14:16 Stomach Family History Father Myocardial infarction Heart disease CVA (cerebral vascular accident) Mother Colon cancer Surgical History History of hydrocelectomy (~12/2019) History of surgery on lower extremity (02/03/24) History of cardiac catheterization (~2018) S/P IVC filter (~2023) History of heart artery stent (~2018) History of hernia surgery (~2021) H/O kidney removal (~05/2017) History of bowel resection (~2005) Hx of tonsillectomy Social History household members: children and other details: Lives with daughter Haydee, who has a , 2 children. Smoking Status: Former smoker pack-years: 10 alcohol intake: never substance use type: does not use, former substance user and other details: marijuana Physical Exam Const alert and oriented x3 HEENT normocephalic Eyes PERRL Lymph Lymphatic: no lymphadenopathy noted Resp Auscultation: rhonchi Cardio Rate: regular rate Rhythm: regular rhythm GI soft to palpation and non-tender Palpation: hernia indirect inguinal left Extremity normal to inspection Neuro CN's II-XII intact bilaterally Lab / Micro Data 06/03/24 05:07 06/03/24 05:07 Labs: Laboratory Results - last 24 hr 06/01/24 07:52: Blood Type B POSITIVE, Antibody Screen NEGATIVE, Crossmatch See Detail 06/03/24 05:07: WBC 29.2 H, RBC 2.79 L, Hgb 9.7 L, Hct 30.6 L, MCV 109.7 H D, M CH 34.8 H, MCHC 31.7 L, RDW Std Deviation TNP, RDW Coeff of Susan TNP, Plt Count 278, MPV 9.7, Immature Gran % (Auto) 0.900, Neut % (Auto) 11.0 L, Lymph % (Auto) 70.7 H, [place] % (Auto) 17.3 H, Eos % (Auto) 0.0, Baso % (Auto) 0.1, Absolute Neuts (auto) 3.2, Absolute Lymphs (auto) 20.62 H, Nucleated RBC % 0.1, Differential Comment COMMENT, Diff Path Review May foll, Atypical Lymphocytes 1+, Smudge Cells 1+ H, Sodium 137, Potassium 4.6, Chloride 103, Carbon Dioxide 25.0, Anion Gap 9, BUN 45 H, Creatinine 1.70 H, Estim Creat Clear Calc 40.43, E st GFR (MDRD) Af Amer 51 L, Est GFR (MDRD) Non-Af 43 L, BUN/Creatinine Ratio 26.5 H, Glucose 120 H, Calcium 9.5 Micro: Microbiology 05/29/24 21:25 Sputum, Expectorated/Coughed Gram Stain - Final 05/29/24 21:25 Sputum, Expectorated/Coughed Respiratory Culture - Final Pseudomonas aeruginosa Pseudomonas aeruginosa#2 06/02/24 05:15 Nasal Secretion SARS-CoV-2 Antigen (Rapid) - Final
[2024-06-03] MEDS: Tuberculin,Purif.prot.deriv. 50 TU/ML Vial 0.1 ML ID (12:44)
[2024-06-03 14:23] LABS: Pathologist Review Reviewed
[2024-06-03 16:00] VITALS: BP 138/84; PULSE 89; TEMP 37.1; O2SAT 96
[2024-06-03] MEDS: Rivaroxaban 10 MG Tablet PO (16:56)
[2024-06-03 18:36] LABS: Hematocrit 31.5 % (40-54); Hemoglobin 10.5 g/dL (13.0-16.5)
[2024-06-03] MEDS: Zolpidem Tartrate 5 MG Tablet 10 MG PO (22:21)
[2024-06-03] MEDS: 0.9% Saline Lock 10 ML Syringe IV (22:23)
[2024-06-03] MEDS: Magnesium Chloride 64 MG Delay Rel.Tablet 128 MG PO (22:25)
[2024-06-03] MEDS: Albuterol IH (6.7 GM) 1 PUFF INHALER INHALATION (22:41)
[2024-06-03] MEDS: Ondansetron 8 MG Tablet PO (22:41)
[2024-06-03] MEDS: cycloBENZAPRine HCl 10 MG Tablet PO (22:43)
[2024-06-03] MEDS: 0.9% Normal Saline (100mL Bag) 100 ML 15 ML IV (22:44)
--- NOTE | 2024-06-04 02:02 | NURSING ---
All care provided in room due to droplet isolation precautions.
[2024-06-04] MEDS: Acyclovir 5% Tube 1 APPLIC TOPICAL ×3 (05:28→13:19)
[2024-06-04] MEDS: Acetaminophen 500 MG Tablet 1000 MG PO ×3 (05:28→22:17)
[2024-06-04 09:00] VITALS: BP 134/74; PULSE 91; RESP 18; TEMP 36.2; O2SAT 94
[2024-06-04] MEDS: Hydroxyurea 500 MG Capsule 1500 MG PO (09:25)
[2024-06-04] MEDS: Pantoprazole Sodium 40 MG Tablet PO (09:25)
[2024-06-04] MEDS: Multivitamins,Ther W-Minerals Tablet 1 TABLET PO (09:25)
[2024-06-04] MEDS: Calcitriol 0.25 MCG Capsule PO (09:25)
[2024-06-04] MEDS: Escitalopram Oxalate 10 MG Tablet 5 MG PO (09:25)
[2024-06-04] MEDS: Calcium (Elemental) 500 MG Tablet PO (09:25)
[2024-06-04] MEDS: Ascorbic Acid 500 MG Tablet 2000 MG PO (09:25)
[2024-06-04 09:32] VITALS: BP 134/74; PULSE 91
[2024-06-04] MEDS: Metoprolol(XL)Succ 100 MG Tablet PO (09:32)
[2024-06-04] MEDS: Albuterol IH (6.7 GM) 1 PUFF INHALER INHALATION (09:33)
--- NOTE | 2024-06-04 10:21 | PCM.PN.ID ---
Physical Exam Narrative Still some cough, dyspnea. No fever Const alert and no apparent distress General Appearance: cooperative Resp Auscultation: rhonchi and diminished lung sounds Cardio regular rate and regular rhythm GI soft to palpation, non-tender and non-distended Skin no rashes or lesions noted ID ID: Route of nutrition/ use of supplements: [] Nutritional Intake: [] IV Site: [] Garibay Catheter: [] Assessment & Plan Assessment/Plan (1) Flu: (2) Pneumonia due to Pseudomonas: PLAN: Flu and completed tamiflu, also rhinovirus (+). Sputum with pseudomonas x2, cont meropenem. Will follow
[2024-06-04] MEDS: Meropenem 1 GM in 0.9% Normal Saline (100mL MB+) 100 ML IV ×2 (11:12→22:42)
[2024-06-04] MEDS: 0.9% Saline Lock 10 ML Syringe IV ×2 (11:16→22:16)
--- NOTE | 2024-06-04 12:20 | NURSING ---
All care provided in room due to droplet isolation precautions.
--- NOTE | 2024-06-04 13:14 | NURSING ---
Patient back on floor
[2024-06-04] MEDS: Ferrous Sulfate 325 MG Tablet PO (13:19)
--- NOTE | 2024-06-04 13:22 | ST.MBS ---
Modified Barium Swallow Patient Information Study Date: 06/04/24 Study Time: 12:30 Direct Billable Minutes: 120 Total Minutes procedure & reportin Diagnosis: Dysphagia, unspecified R13.10 Referring Physician: Leighton Orozco Chi Medical History: Pt with PMH of HTN, A-fib, CAD, COPD, pulmonary fibrosis, CKD III, Hx of NC (~2018), recurrent DVT, TIA, PAD, GERD, Rhodes?s, Hx of GI bleed, JEANNINE 2/2 chronic blood loss, CLL, Hx of kidney & skin CA, multiple lung nodules, anxiety, depression, peripheral neuropathy, debility, and Hx of femur fx (~2020). Former smoker. On 05/23/2024, pt presented to [facility] ED s/p fall down stairs at friend?s house, sustaining R hip fx. CT head & C-spine negative, EKG WNL. Admitted for surgical repair; on 05/24/2024, Dr. Ramsey performed R hip CMN. On 05/26/2024, pt transferred to TCU for rehab prior to d/c home w/ daughter Haydee. ST consult requested for choking episode, Hx of PNA, chronic cough, flu, and GI Hx (Rhodes?s, GI bleeds, GERD). Pt initially declined MBSS on 06/03/2024 but agreed on 06/04/2024. Current Diet Ordered: Regular Textures / Thin Liquids Mental Status: WNL Respiratory Status: Oxygenating on Room Air Penetration-Aspiration Scale Penetration-Aspiration Scale: OBJECTIVE ASSESSMENT OF SWALLOW FUNCTION (QUANTITATIVE ? PER TRIAL): PENETRATION / ASPIRATION SCALE (STEWART): 1 = does not enter airway 2 = enters airway/above vocal folds/ejected 3 = enters airway/above vocal folds/not ejected 4 = enters airway/contacts vocal folds/ejected 5 = enters airway/contacts vocal folds/not ejected 6 = enters airway/below vocal folds/ejected 7 = enters airway/below vocal folds/not ejected despite effort 8 = enters airway/below vocal folds/no effort VIDEOFLOROSCOPIC SCALE SCORE (STEWART): Grade I = aspiration of material that has penetrated into the laryngeal vestibule, intact cough reflex Grade II = aspiration < 10 % of the bolus, intact cough reflex Grade III = aspiration of < 10 % of the bolus, reduced cough reflex or aspiration of > 10 % of the bolus, intact cough reflex Grade IV = aspiration of > 10 % of the bolus, reduced cough reflex Penetration-Aspiration Scale Score Thin Liquid via teaspoon: Result: 1= does not enter airway Thin Liquid via small single sip: cup: Result: 1= does not enter airway Thin Liquid via sequential sips: cup: Result: 1= does not enter airway Pudding: Result: 1= does not enter airway Cookie: Result: 1= does not enter airway Barium Tablet: Result: 1= does not enter airway Oral Phase Labial Seal: No Labial Escape Tongue Control During Bolus Hold: Cohesive bolus between tongue to palatal seal Bolus Preparation/Mastication: Slow prolonged chewing/mashing with complete recollection Bolus Transport/Lingual Motion: Brisk tongue motion Oral Residue: Trace residue lining oral structures Pharyngeal Phase Initiation of Pharyngeal Swallow: Bolus head in valleculae Soft Palate Elevation: No bolus between soft palate and pharyngeal wall Laryngeal Elevation: Comp. Superior move thyroid cart w/comp. apprx arytenoid cart-epig pet Anterior Hyoid Excursion: Complete anterior movement Epiglottic Movement: Complete inversion Laryngeal Vestibule Closure at Height of Swallow: Complete; no air/contrast in laryngeal vestibule Pharyngeal Stripping Wave: Present - complete Pharyngoesophageal Segment Opening: Parital distension and partial duration; parital obstruction of flow Tongue Base Retraction: No contrast between tongue base and posterior pharyngeal wall Pharyngeal Residue: Collection of residue within or on pharyngeal structures Esophageal Phase Esophageal Clearance: Complete clearance Diagnosis/Impression Diagnosis: Swallow Function WNL Impression: The swallow function was WNL. No penetration or aspiration occurred during the study with thin liquids (both single and sequential sips). Disorganized mastication and incomplete bolus formation were noted, likely due to the patient talking while attempting to chew and swallow a Nelly Doone cookie coated in pudding. Pharyngeal residue was observed, with the patient needing multiple swallows to clear. No esophageal retention was noted. Recommendations Diet: Regular Textures and Thin Liquids Compensatory Strategies: Small Bites, Small Sips, Slow Rate, Multiple Swallows, Alternate bites/solids and sips/liquids, Sitting upright and Remain sitting upright for 30 minutes after PO intake Recommend Repeat Modified Barium Swallow: No Need for Skilled Speech Therapy Services: No Education Completed: 1. Described result of evaluation. and 2. Pt understands evaluation & agrees with goals and treatment plan. Status Active ST Patient: Active Contact Information [facility] Speech Therapy:: Bonnie Webster M.A., [facility] EDUCATIONAL AIDE Speech Language Pathologist [address] [address] [email or web address] [phone]
[2024-06-04] MEDS: oxyCODONE 5 MG Tablet PO ×2 (13:29→19:20)
[2024-06-04] MEDS: Rivaroxaban 10 MG Tablet PO (17:19)
[2024-06-04 22:00] VITALS: PULSE 86; O2SAT 96
[2024-06-04] MEDS: Magnesium Chloride 64 MG Delay Rel.Tablet 128 MG PO (22:17)
[2024-06-04] MEDS: guaiFENesin 10 ML UDC (200MG/10ML) PO (22:18)
[2024-06-04] MEDS: cycloBENZAPRine HCl 10 MG Tablet PO (22:19)
[2024-06-04] MEDS: Zolpidem Tartrate 5 MG Tablet 10 MG PO (22:19)
[2024-06-04] MEDS: 0.9% Normal Saline (100mL Bag) 100 ML 15 ML IV (22:22)
--- NOTE | 2024-06-05 02:08 | NURSING ---
All care provided in room due to droplet isolation.
[2024-06-05] MEDS: oxyCODONE 5 MG Tablet PO ×2 (04:16→20:07)
[2024-06-05] MEDS: Acetaminophen 500 MG Tablet 1000 MG PO ×3 (05:25→20:08)
[2024-06-05 06:42] VITALS: PULSE 84; O2SAT 95
[2024-06-05] MEDS: Meropenem 1 GM in 0.9% Normal Saline (100mL MB+) 100 ML IV ×2 (10:51→21:07)
[2024-06-05] MEDS: Calcium (Elemental) 500 MG Tablet PO (10:52)
[2024-06-05] MEDS: Multivitamins,Ther W-Minerals Tablet 1 TABLET PO (10:52)
[2024-06-05] MEDS: Hydroxyurea 500 MG Capsule 1500 MG PO (10:53)
[2024-06-05] MEDS: Escitalopram Oxalate 10 MG Tablet 5 MG PO (10:54)
[2024-06-05] MEDS: Calcitriol 0.25 MCG Capsule PO (10:55)
[2024-06-05] MEDS: Ascorbic Acid 500 MG Tablet 2000 MG PO (10:55)
[2024-06-05] MEDS: Pantoprazole Sodium 40 MG Tablet PO (10:55)
[2024-06-05 10:56] VITALS: BP 115/82; PULSE 95
[2024-06-05] MEDS: Metoprolol(XL)Succ 100 MG Tablet PO (10:56)
--- NOTE | 2024-06-05 13:19 | PCM.PN.SRG ---
Subjective Subjective No new issues or complaints. Still having pain in the left inguinal hernia region. Patient currently applying ice packs to the area with improvement to the pain Objective Data Objective Data Vital Signs: Vital Signs Temp Pulse Resp BP Pulse Ox O2 Del Method 97.2 F L 95 18 115/82 H 95 Room Air 06/04/24 09:00 06/05/24 10:56 06/04/24 09:00 06/05/24 10:56 06/05/24 06:42 06/05/24 06:42 Oxygen Delivery Method Room Air Weight: 178 lb 3.2 oz Body Mass Index (BMI) 26.3 Intake & Output: Intake and Output for Last 24 Hours 06/03/24 06/04/24 06/05/24 23:59 23:59 23:59 Intake Total 1080.25 / 1080.25 1540.00 / 1540.00 646.25 / 646.25 Balance 1080.25 / 1080.25 1540.00 / 1540.00 646.25 / 646.25 Lab / Micro Data 06/03/24 18:17 06/03/24 05:07 Micro: Microbiology 05/29/24 21:25 Sputum, Expectorated/Coughed Gram Stain - Final 05/29/24 21:25 Sputum, Expectorated/Coughed Respiratory Culture - Final Pseudomonas aeruginosa Pseudomonas aeruginosa#2 06/02/24 05:15 Nasal Secretion SARS-CoV-2 Antigen (Rapid) - Final 05/31/24 09:00 Stool Stool Occult Blood (TODD) - Final Occult Blood Positive 05/29/24 20:30 Mucosa - Nasopharyngeal Respiratory Panel (PCR) - Final Influenza A (Subtype H3) Rhinovirus 05/29/24 20:47 Nasal Secretion SARS-CoV-2 Antigen (Rapid) - Final Physical Exam Narrative He is alert and oriented x 3. He is in no acute distress. Examination of the left groin reveals a left inguinal hernia. No overlying skin changes. This is not readily reducible. No evidence of strangulation. This seems to be chronically incarcerated Assessment & Plan Assessment/Plan (1) Left inguinal hernia: PLAN: Plan Patient is a 68-year-old male with a left inguinal hernia which seems to be exacerbated by recent coughing secondary to pneumonia. Also patient is recovering from a recent right hip surgery secondary to fracture. Ideally would recommend repair of this left inguinal hernia Once patient is more medically optimized and has since recovered from pneumonia and hip fracture. Will continue to follow peripherally. Please contact us if any acute exacerbation to his symptoms Ideally recommend follow-up with Dr. Macias as an outpatient
[2024-06-05] MEDS: Ferrous Sulfate 325 MG Tablet PO (13:54)
--- NOTE | 2024-06-05 15:36 | NURSING ---
All nursing care provided in patient's room due to droplet precautions.
[2024-06-05 16:00] VITALS: BP 157/79; PULSE 79; RESP 16; TEMP 36.1; O2SAT 94
[2024-06-05] MEDS: Rivaroxaban 10 MG Tablet PO (17:00)
[2024-06-05] MEDS: Magnesium Chloride 64 MG Delay Rel.Tablet 128 MG PO (20:09)
[2024-06-05] MEDS: guaiFENesin 10 ML UDC (200MG/10ML) PO (21:00)
[2024-06-05] MEDS: Zolpidem Tartrate 5 MG Tablet 10 MG PO (21:00)
[2024-06-05] MEDS: 0.9% Normal Saline (100mL Bag) 100 ML 15 ML IV (21:01)
[2024-06-05] MEDS: cycloBENZAPRine HCl 10 MG Tablet PO (21:01)
[2024-06-05] MEDS: 0.9% Saline Lock 10 ML Syringe IV (21:01)
[2024-06-06] MEDS: oxyCODONE 5 MG Tablet PO ×2 (05:48→21:34)
[2024-06-06] MEDS: Acetaminophen 500 MG Tablet 1000 MG PO ×3 (05:48→21:35)
[2024-06-06] MEDS: Multivitamins,Ther W-Minerals Tablet 1 TABLET PO (10:20)
[2024-06-06] MEDS: Calcium (Elemental) 500 MG Tablet PO (10:20)
[2024-06-06] MEDS: Escitalopram Oxalate 10 MG Tablet 5 MG PO (10:21)
[2024-06-06] MEDS: Pantoprazole Sodium 40 MG Tablet PO (10:22)
[2024-06-06] MEDS: Calcitriol 0.25 MCG Capsule PO (10:23)
[2024-06-06] MEDS: Ascorbic Acid 500 MG Tablet 2000 MG PO (10:23)
[2024-06-06 10:37] VITALS: BP 110/68; PULSE 101
[2024-06-06] MEDS: Metoprolol(XL)Succ 100 MG Tablet PO (10:37)
[2024-06-06] MEDS: 0.9% Saline Lock 10 ML Syringe IV ×2 (10:45→21:34)
[2024-06-06] MEDS: Meropenem 1 GM in 0.9% Normal Saline (100mL MB+) 100 ML IV ×2 (10:48→21:35)
[2024-06-06 10:59] VITALS: BP 110/68; PULSE 101; RESP 18; O2SAT 93
[2024-06-06] MEDS: Ferrous Sulfate 325 MG Tablet PO (11:42)
--- NOTE | 2024-06-06 11:54 | NURSING ---
ALL CARE GIVEN IN ROOM DUE TO PT IN PRECAUTIONS
[2024-06-06 15:22] VITALS: TEMP 36.1
[2024-06-06] MEDS: Rivaroxaban 10 MG Tablet PO (17:46)
[2024-06-06] MEDS: cycloBENZAPRine HCl 10 MG Tablet PO (21:33)
[2024-06-06] MEDS: guaiFENesin 10 ML UDC (200MG/10ML) PO (21:34)
[2024-06-06] MEDS: Zolpidem Tartrate 5 MG Tablet 10 MG PO (21:34)
[2024-06-06] MEDS: Magnesium Chloride 64 MG Delay Rel.Tablet 128 MG PO (21:35)
--- NOTE | 2024-06-07 03:19 | NURSING ---
Patient curious as to when IV merrem will be discontinued and what determines when he can come off of it. This nurse explained he is being followed up by infectious disease d/t a positive gram stain from his sputum culture. There is currently no stop date for the IV merrem on the eMAR. Nursing communication written to call infectious disease 06/07/24 to follow-up on these questions and concerns. Patient appreciative to this nurse for voicing his concerns.
[2024-06-07] MEDS: Acetaminophen 500 MG Tablet 1000 MG PO ×3 (06:35→22:42)
[2024-06-07] MEDS: guaiFENesin 10 ML UDC (200MG/10ML) PO ×2 (06:36→22:45)
[2024-06-07] MEDS: oxyCODONE 5 MG Tablet PO ×3 (06:36→22:39)
[2024-06-07] MEDS: Hydroxyurea 500 MG Capsule 1500 MG PO (09:21)
[2024-06-07] MEDS: Calcium (Elemental) 500 MG Tablet PO (09:21)
[2024-06-07] MEDS: Multivitamins,Ther W-Minerals Tablet 1 TABLET PO (09:21)
[2024-06-07] MEDS: Ascorbic Acid 500 MG Tablet 2000 MG PO (09:22)
[2024-06-07] MEDS: Calcitriol 0.25 MCG Capsule PO (09:22)
[2024-06-07] MEDS: Pantoprazole Sodium 40 MG Tablet PO (09:22)
[2024-06-07] MEDS: Escitalopram Oxalate 10 MG Tablet 5 MG PO (09:22)
[2024-06-07] MEDS: Meropenem 1 GM in 0.9% Normal Saline (100mL MB+) 100 ML IV ×2 (09:24→22:52)
[2024-06-07 09:42] VITALS: BP 136/73; PULSE 102
[2024-06-07] MEDS: Metoprolol(XL)Succ 100 MG Tablet PO (09:42)
[2024-06-07] MEDS: 0.9% Saline Lock 10 ML Syringe IV ×2 (14:10→22:39)
[2024-06-07] MEDS: Ferrous Sulfate 325 MG Tablet PO (14:10)
[2024-06-07 15:25] VITALS: BP 136/73; PULSE 70; RESP 18; TEMP 36.6; O2SAT 93
[2024-06-07] MEDS: Ondansetron 8 MG Tablet PO (17:12)
[2024-06-07] MEDS: Rivaroxaban 10 MG Tablet PO (17:13)
--- NOTE | 2024-06-07 18:10 | NURSING ---
This nurse enters room and patient is visibly upset and agitated. After discussion, patient states daughter is unable to take him to f/u appt on 06/[address] Ramsey. This nurse reassures that we can call DR. Ramsey's office in the AM and either reschedule or get orders to remove eder here on TCU and that patient will not need to worry about taking care of appt. Patient calms down and apologizes for being upset and states he would prefer to get any F/U care here rather that go out for an appt.
[2024-06-07] MEDS: cycloBENZAPRine HCl 10 MG Tablet PO (22:40)
[2024-06-07] MEDS: Zolpidem Tartrate 5 MG Tablet 10 MG PO (22:40)
[2024-06-07] MEDS: Magnesium Chloride 64 MG Delay Rel.Tablet 128 MG PO (22:43)
[2024-06-07] MEDS: 0.9% Normal Saline (100mL Bag) 100 ML 15 ML IV (22:53)
[2024-06-08] MEDS: Acetaminophen 500 MG Tablet 1000 MG PO ×3 (05:10→22:19)
--- NOTE | 2024-06-08 08:09 | NURSING ---
Addendum entered by Kathryn Garcias 06/08/24 11:37: Hear back from Dr. Ramsey office with orders to remove eder in 3 weeks post-op, but they also want to reschedule with patient ROQUE in office to do x-rays. Offered to do x-rays here, but clinical staff states they are unable to see our x-ray images and they want to do them at their office. New appt scheduled for 06/15 at 1030 and patient made aware and he states he will make daughter aware to make sure she can transport him to appt. Original Note: Called Dr. Falk's office, appt cancelled as dtr can't trasport. Asked to then speak to clinical staff to ask about xrays and eder, sent to . Left , await return call.
[2024-06-08 09:10] LABS: Hematocrit 34.2 % (40-54); Hemoglobin 10.7 g/dL (13.0-16.5); Mean Corp Hgb Conc 31.3 g/dL (32-36); Mean Corpuscular Hgb 35.9 pg (27.0-32.0); Mean Corpuscular Volume 114.8 fL (80-94); Mean Platelet Vol. 9.2 fl (6.2-12.0); POSITIVE MORPHOLOGY YES; Platelet Count 344 K/mm3 (150-450); Red Blood Count 2.98 M/mm3 (4.6-6.2); White Blood Count 28.7 K/mm3 (4.4-11.0)
[2024-06-08 09:15] LABS: Scan Indicated on CBC? Y/N YES- FLAGS NOTED
[2024-06-08] MEDS: Calcium (Elemental) 500 MG Tablet PO (09:25)
[2024-06-08] MEDS: Hydroxyurea 500 MG Capsule 1500 MG PO (09:25)
[2024-06-08] MEDS: Multivitamins,Ther W-Minerals Tablet 1 TABLET PO (09:25)
[2024-06-08] MEDS: Escitalopram Oxalate 10 MG Tablet 5 MG PO (09:26)
[2024-06-08] MEDS: Pantoprazole Sodium 40 MG Tablet PO (09:28)
[2024-06-08] MEDS: Calcitriol 0.25 MCG Capsule PO (09:28)
[2024-06-08 09:29] VITALS: BP 110/67; PULSE 91
[2024-06-08] MEDS: Metoprolol(XL)Succ 100 MG Tablet PO (09:29)
[2024-06-08] MEDS: Ascorbic Acid 500 MG Tablet 2000 MG PO (09:29)
[2024-06-08] MEDS: Meropenem 1 GM in 0.9% Normal Saline (100mL MB+) 100 ML IV ×2 (09:42→22:17)
[2024-06-08 10:00] VITALS: BP 110/67; PULSE 98; RESP 20; TEMP 36.3; O2SAT 91
--- NOTE | 2024-06-08 10:27 | PCM.PN.ID ---
Physical Exam Narrative Feeling better, less cough, less dyspnea, sputum less purulent. No fever. Const alert and no apparent distress Resp Auscultation: wheezes Cardio regular rate and regular rhythm GI soft to palpation, non-tender and non-distended Skin no rashes or lesions noted ID ID: Route of nutrition/ use of supplements: [] Nutritional Intake: [] IV Site: [] Garibay Catheter: [] Assessment & Plan Assessment/Plan (1) Flu: (2) Pneumonia due to Pseudomonas: PLAN: Flu and completed tamiflu, also rhinovirus (+). Sputum with pseudomonas x2, cont meropenem for 6 days total, last dose tonight. Sx improved. Will follow prn
--- NOTE | 2024-06-08 10:38 | MDS.RN ---
Information for the MDS was obtained from review of the clinical record, interview of resident, staff, and direct observation of resident?s care.
[2024-06-08] MEDS: oxyCODONE 5 MG Tablet PO ×2 (14:20→22:29)
[2024-06-08] MEDS: cycloBENZAPRine HCl 10 MG Tablet PO (14:20)
[2024-06-08] MEDS: Ferrous Sulfate 325 MG Tablet PO (14:22)
[2024-06-08 16:41] VITALS: BMI 26.1
[2024-06-08] MEDS: Rivaroxaban 10 MG Tablet PO (17:57)
[2024-06-08 19:06] LABS: Anion Gap 12 (5-15); BUN 28 mg/dL (4-19); Calcium 9.8 mg/dL (7.6-11.0); Chloride 103 mmol/L (96-108); Creatinine, Serum 1.6 mg/dL (0.8-1.3); EST Glomerular Filtration Rate 47 (>60); Estimated Creatinine Clearance 42.96 ml/min; Glucose 80 mg/dL (70-99); Potassium 4.9 mmol/L (3.3-5.1); Sodium Level 137 mmol/L (133-145)
[2024-06-08] MEDS: Magnesium Chloride 64 MG Delay Rel.Tablet 128 MG PO (22:19)
[2024-06-08] MEDS: 0.9% Saline Lock 10 ML Syringe IV (22:20)
[2024-06-08] MEDS: Zolpidem Tartrate 5 MG Tablet 10 MG PO (22:23)
[2024-06-09] MEDS: Acetaminophen 500 MG Tablet 1000 MG PO ×3 (06:04→22:30)
[2024-06-09 10:15] VITALS: BP 131/74; PULSE 112; RESP 16; TEMP 36.3; O2SAT 95
[2024-06-09 10:19] VITALS: PULSE 112
[2024-06-09] MEDS: Escitalopram Oxalate 10 MG Tablet 5 MG PO (10:19)
[2024-06-09] MEDS: Metoprolol(XL)Succ 100 MG Tablet PO (10:19)
[2024-06-09] MEDS: Calcitriol 0.25 MCG Capsule PO (10:19)
[2024-06-09] MEDS: Calcium (Elemental) 500 MG Tablet PO (10:19)
[2024-06-09] MEDS: Multivitamins,Ther W-Minerals Tablet 1 TABLET PO (10:19)
[2024-06-09] MEDS: Pantoprazole Sodium 40 MG Tablet PO (10:19)
[2024-06-09] MEDS: Ascorbic Acid 500 MG Tablet 2000 MG PO (10:19)
[2024-06-09] MEDS: Hydroxyurea 500 MG Capsule 1500 MG PO (10:20)
[2024-06-09] MEDS: Albuterol IH (6.7 GM) 1 PUFF INHALER INHALATION (10:24)
[2024-06-09] MEDS: oxyCODONE 5 MG Tablet PO ×3 (10:27→22:26)
[2024-06-09] MEDS: Ferrous Sulfate 325 MG Tablet PO (13:17)
[2024-06-09] MEDS: guaiFENesin 10 ML UDC (200MG/10ML) PO ×2 (13:19→22:28)
[2024-06-09 13:23] VITALS: PULSE 96; O2SAT 93
[2024-06-09] MEDS: Rivaroxaban 10 MG Tablet PO (17:40)
[2024-06-09 20:00] VITALS: PULSE 80; O2SAT 94
[2024-06-09] MEDS: cycloBENZAPRine HCl 10 MG Tablet PO (22:27)
[2024-06-09] MEDS: Zolpidem Tartrate 5 MG Tablet 10 MG PO (22:28)
[2024-06-09] MEDS: Magnesium Chloride 64 MG Delay Rel.Tablet 128 MG PO (22:29)
[2024-06-10] MEDS: Acetaminophen 500 MG Tablet 1000 MG PO ×3 (05:37→21:50)
[2024-06-10 05:46] LABS: Absolute Lymphocyte Count 17.11 X10^3/uL (0.83-4.51); Absolute Neutrophil Count 2.4 X10^3/uL (2.0-7.7); Basophil# 0.03 X10^3/uL; Basophil% 0.1 % (0-1); Eosinophil# 0.01 X10^3/uL; Hematocrit 30.9 % (40-54); Hemoglobin 9.8 g/dL (13.0-16.5); Lymphocyte # 17.11 X10^3/ul (0.83-4.51); Lymphocyte % 66.1 % (19-41); Mean Corp Hgb Conc 31.7 g/dL (32-36); Mean Corpuscular Volume 113.6 fL (80-94); Mean Platelet Vol. 9.4 fl (6.2-12.0); Monocyte# 6.16 X10^3/uL; Monocyte% 23.8 % (0-10); NRBC Flagged by Analyzer 0 % (0-5); Neutrophil # 2.44 X10^3/uL (2.7-7.7); Neutrophil % 9.5 % (47-70); POSITIVE DIFFERENTIAL YES; POSITIVE MORPHOLOGY YES; Platelet Count 339 K/mm3 (150-450); Red Blood Count 2.72 M/mm3 (4.6-6.2); White Blood Count 25.9 K/mm3 (4.4-11.0)
[2024-06-10 05:54] LABS: Differential Indicated SCAN CRITERIA MET
[2024-06-10 06:45] LABS: EST Glomerular Filtration Rate 49 (>60)
[2024-06-10 07:31] LABS: Anisocytosis 2+; Smudge Cells 2+; Toxic Granulation 1+
[2024-06-10 10:38] VITALS: BP 125/68; PULSE 98; RESP 16; TEMP 35.8; O2SAT 94
[2024-06-10 10:39] VITALS: PULSE 98
[2024-06-10] MEDS: Ascorbic Acid 500 MG Tablet 2000 MG PO (10:39)
[2024-06-10] MEDS: Escitalopram Oxalate 10 MG Tablet 5 MG PO (10:39)
[2024-06-10] MEDS: Ferrous Sulfate 325 MG Tablet PO (10:39)
[2024-06-10] MEDS: Metoprolol(XL)Succ 100 MG Tablet PO (10:39)
[2024-06-10] MEDS: Hydroxyurea 500 MG Capsule 1500 MG PO (10:39)
[2024-06-10] MEDS: Calcitriol 0.25 MCG Capsule PO (10:39)
[2024-06-10] MEDS: Calcium (Elemental) 500 MG Tablet PO (10:39)
[2024-06-10] MEDS: Pantoprazole Sodium 40 MG Tablet PO (10:39)
[2024-06-10] MEDS: Multivitamins,Ther W-Minerals Tablet 1 TABLET PO (10:40)
[2024-06-10] MEDS: Albuterol IH (6.7 GM) 1 PUFF INHALER INHALATION (10:40)
[2024-06-10] MEDS: oxyCODONE 5 MG Tablet PO ×3 (10:44→21:53)
[2024-06-10] MEDS: guaiFENesin 10 ML UDC (200MG/10ML) PO ×2 (10:44→21:53)
[2024-06-10 12:21] LABS: BUN 34 mg/dL (4-19); Creatinine, Serum 1.6 mg/dL (0.8-1.3); Estimated Creatinine Clearance 42.96 ml/min; Glucose 94 mg/dL (70-99)
[2024-06-10 13:37] LABS: Calcium,Total 9.5 mg/dL (7.6-11.0); Potassium 4.9 mmol/L (3.5-5.1); Sodium Level 139 mmol/L (136-145)
[2024-06-10 13:38] LABS: Anion Gap 14 (5-15); Carbon Dioxide 21.2 mmol/L (21.0-32.0); Chloride 104 mmol/L (98-107)
[2024-06-10 16:49] VITALS: PULSE 98; RESP 17; O2SAT 96
[2024-06-10] MEDS: Rivaroxaban 10 MG Tablet PO (17:44)
[2024-06-10] MEDS: Magnesium Chloride 64 MG Delay Rel.Tablet 128 MG PO (21:50)
[2024-06-10] MEDS: cycloBENZAPRine HCl 10 MG Tablet PO (21:52)
[2024-06-10] MEDS: Zolpidem Tartrate 5 MG Tablet 10 MG PO (21:52)
[2024-06-11] MEDS: oxyCODONE 5 MG Tablet PO ×4 (05:17→22:04)
[2024-06-11] MEDS: guaiFENesin 10 ML UDC (200MG/10ML) PO ×3 (05:17→22:02)
[2024-06-11] MEDS: Acetaminophen 500 MG Tablet 1000 MG PO ×3 (05:17→22:03)
[2024-06-11 08:48] VITALS: BP 131/69; PULSE 89
[2024-06-11] MEDS: Metoprolol(XL)Succ 100 MG Tablet PO (08:48)
[2024-06-11] MEDS: Calcitriol 0.25 MCG Capsule PO (08:48)
[2024-06-11] MEDS: Multivitamins,Ther W-Minerals Tablet 1 TABLET PO (08:49)
[2024-06-11] MEDS: Escitalopram Oxalate 10 MG Tablet 5 MG PO (08:49)
[2024-06-11] MEDS: Calcium (Elemental) 500 MG Tablet PO (08:49)
[2024-06-11] MEDS: Pantoprazole Sodium 40 MG Tablet PO (08:49)
[2024-06-11] MEDS: Hydroxyurea 500 MG Capsule 1500 MG PO (08:49)
[2024-06-11] MEDS: Ascorbic Acid 500 MG Tablet 2000 MG PO (08:49)
[2024-06-11] MEDS: Albuterol IH (6.7 GM) 1 PUFF INHALER INHALATION ×2 (08:50→22:05)
[2024-06-11 10:00] VITALS: BP 131/69; PULSE 89; RESP 18; O2SAT 96
[2024-06-11] MEDS: Ferrous Sulfate 325 MG Tablet PO (11:31)
[2024-06-11 11:45] VITALS: PULSE 89; RESP 18; O2SAT 96
[2024-06-11] MEDS: Rivaroxaban 10 MG Tablet PO (17:33)
[2024-06-11] MEDS: cycloBENZAPRine HCl 10 MG Tablet PO (22:02)
[2024-06-11] MEDS: Zolpidem Tartrate 5 MG Tablet 10 MG PO (22:02)
[2024-06-11] MEDS: Magnesium Chloride 64 MG Delay Rel.Tablet 128 MG PO (22:04)
[2024-06-12] MEDS: guaiFENesin 10 ML UDC (200MG/10ML) PO ×2 (06:50→22:22)
[2024-06-12] MEDS: Acetaminophen 500 MG Tablet 1000 MG PO ×3 (06:50→22:15)
[2024-06-12] MEDS: oxyCODONE 5 MG Tablet PO ×2 (06:51→22:23)
[2024-06-12 10:16] VITALS: BP 119/73; PULSE 103; RESP 16; O2SAT 95
[2024-06-12] MEDS: Albuterol IH (6.7 GM) 1 PUFF INHALER INHALATION ×2 (10:18→22:17)
[2024-06-12 10:19] VITALS: PULSE 103
[2024-06-12] MEDS: Ascorbic Acid 500 MG Tablet 2000 MG PO (10:19)
[2024-06-12] MEDS: Metoprolol(XL)Succ 100 MG Tablet PO (10:19)
[2024-06-12] MEDS: Escitalopram Oxalate 10 MG Tablet 5 MG PO (10:20)
[2024-06-12] MEDS: Multivitamins,Ther W-Minerals Tablet 1 TABLET PO (10:20)
[2024-06-12] MEDS: Calcium (Elemental) 500 MG Tablet PO (10:20)
[2024-06-12] MEDS: Pantoprazole Sodium 40 MG Tablet PO (10:20)
[2024-06-12] MEDS: Calcitriol 0.25 MCG Capsule PO (10:20)
[2024-06-12] MEDS: Hydroxyurea 500 MG Capsule 1500 MG PO (10:21)
[2024-06-12] MEDS: Ferrous Sulfate 325 MG Tablet PO (12:39)
[2024-06-12 14:24] VITALS: TEMP 37.2
[2024-06-12] MEDS: Rivaroxaban 10 MG Tablet PO (17:33)
[2024-06-12 22:00] VITALS: PULSE 82; O2SAT 96
[2024-06-12] MEDS: Magnesium Chloride 64 MG Delay Rel.Tablet 128 MG PO (22:15)
[2024-06-12] MEDS: cycloBENZAPRine HCl 10 MG Tablet PO (22:22)
[2024-06-12] MEDS: Zolpidem Tartrate 5 MG Tablet 10 MG PO (22:23)
[2024-06-13] MEDS: Acetaminophen 500 MG Tablet 1000 MG PO ×3 (05:35→21:59)
[2024-06-13] MEDS: oxyCODONE 5 MG Tablet PO ×3 (05:46→21:58)
[2024-06-13] MEDS: guaiFENesin 10 ML UDC (200MG/10ML) PO ×2 (05:46→21:57)
[2024-06-13] MEDS: Multivitamins,Ther W-Minerals Tablet 1 TABLET PO (09:13)
[2024-06-13] MEDS: Calcium (Elemental) 500 MG Tablet PO (09:13)
[2024-06-13] MEDS: Escitalopram Oxalate 10 MG Tablet 5 MG PO (09:14)
[2024-06-13 09:15] VITALS: BP 111/66; PULSE 89
[2024-06-13] MEDS: Metoprolol(XL)Succ 100 MG Tablet PO (09:15)
[2024-06-13] MEDS: Calcitriol 0.25 MCG Capsule PO (09:15)
[2024-06-13] MEDS: Pantoprazole Sodium 40 MG Tablet PO (09:15)
[2024-06-13] MEDS: Ascorbic Acid 500 MG Tablet 2000 MG PO (09:16)
[2024-06-13 10:00] VITALS: BP 111/66; PULSE 88; RESP 20; TEMP 36.7; O2SAT 94
[2024-06-13] MEDS: Ferrous Sulfate 325 MG Tablet PO (11:43)
[2024-06-13] MEDS: cycloBENZAPRine HCl 10 MG Tablet PO ×2 (11:47→21:57)
[2024-06-13 14:48] VITALS: BP 111/66; PULSE 88; RESP 20; TEMP 36.7; O2SAT 94
[2024-06-13] MEDS: Rivaroxaban 10 MG Tablet PO (17:32)
[2024-06-13] MEDS: Albuterol IH (6.7 GM) 1 PUFF INHALER INHALATION (21:54)
[2024-06-13] MEDS: Zolpidem Tartrate 5 MG Tablet 10 MG PO (21:56)
[2024-06-13] MEDS: Magnesium Chloride 64 MG Delay Rel.Tablet 128 MG PO (21:59)
[2024-06-14] MEDS: Acetaminophen 500 MG Tablet 1000 MG PO ×3 (06:18→22:41)
[2024-06-14] MEDS: cycloBENZAPRine HCl 10 MG Tablet PO ×2 (09:22→18:35)
[2024-06-14] MEDS: oxyCODONE 5 MG Tablet PO ×4 (09:23→22:40)
[2024-06-14] MEDS: Calcium (Elemental) 500 MG Tablet PO (09:23)
[2024-06-14] MEDS: Multivitamins,Ther W-Minerals Tablet 1 TABLET PO (09:23)
[2024-06-14] MEDS: Hydroxyurea 500 MG Capsule 1500 MG PO (09:24)
[2024-06-14] MEDS: Escitalopram Oxalate 10 MG Tablet 5 MG PO (09:24)
[2024-06-14 09:25] VITALS: BP 140/83; PULSE 107
[2024-06-14] MEDS: Metoprolol(XL)Succ 100 MG Tablet PO (09:25)
[2024-06-14] MEDS: Calcitriol 0.25 MCG Capsule PO (09:25)
[2024-06-14] MEDS: Pantoprazole Sodium 40 MG Tablet PO (09:25)
[2024-06-14] MEDS: Ascorbic Acid 500 MG Tablet 2000 MG PO (09:25)
[2024-06-14 10:00] VITALS: BP 140/83; PULSE 107; RESP 18; RESP 20; TEMP 36.4; O2SAT 93
[2024-06-14] MEDS: Ferrous Sulfate 325 MG Tablet PO (13:57)
[2024-06-14] MEDS: guaiFENesin 10 ML UDC (200MG/10ML) PO ×2 (14:00→22:40)
[2024-06-14] MEDS: Rivaroxaban 10 MG Tablet PO (18:06)
--- NOTE | 2024-06-14 18:40 | NURSING ---
[place] removed from right hip tonight. Patient tolerated well and 18 eder removed. No redness, or drainage noted to site. Steri-strips placed over larger incision.
[2024-06-14] MEDS: Zolpidem Tartrate 5 MG Tablet 10 MG PO (22:40)
[2024-06-14] MEDS: Magnesium Chloride 64 MG Delay Rel.Tablet 128 MG PO (22:41)
[2024-06-15] MEDS: Acetaminophen 500 MG Tablet 1000 MG PO ×3 (06:36→22:08)
[2024-06-15] MEDS: guaiFENesin 10 ML UDC (200MG/10ML) PO ×3 (06:36→22:16)
[2024-06-15] MEDS: oxyCODONE 5 MG Tablet PO ×4 (06:36→22:16)
[2024-06-15 09:30] VITALS: BP 115/80; PULSE 91; RESP 16; TEMP 35.9; O2SAT 97
[2024-06-15] MEDS: Calcium (Elemental) 500 MG Tablet PO (09:31)
[2024-06-15] MEDS: Hydroxyurea 500 MG Capsule 1500 MG PO (09:32)
[2024-06-15] MEDS: Multivitamins,Ther W-Minerals Tablet 1 TABLET PO (09:32)
[2024-06-15] MEDS: Escitalopram Oxalate 10 MG Tablet 5 MG PO (09:32)
[2024-06-15] MEDS: Calcitriol 0.25 MCG Capsule PO (09:33)
[2024-06-15] MEDS: Ascorbic Acid 500 MG Tablet 2000 MG PO (09:33)
[2024-06-15] MEDS: Pantoprazole Sodium 40 MG Tablet PO (09:33)
[2024-06-15 09:34] VITALS: PULSE 91
[2024-06-15] MEDS: Metoprolol(XL)Succ 100 MG Tablet PO (09:34)
[2024-06-15] MEDS: Albuterol IH (6.7 GM) 1 PUFF INHALER INHALATION ×2 (09:35→22:10)
[2024-06-15] MEDS: cycloBENZAPRine HCl 10 MG Tablet PO ×3 (09:37→22:15)
--- NOTE | 2024-06-15 09:54 | NURSING ---
Addendum entered by Parker Gamble 06/15/24 12:43: Pt returned to unit via wheelchair. Original Note: pt off unit via WC with daughter at this time.
[2024-06-15] MEDS: Ferrous Sulfate 325 MG Tablet PO (13:02)
[2024-06-15 13:21] VITALS: RESP 18
[2024-06-15 15:14] VITALS: BMI 25.9
[2024-06-15] MEDS: Rivaroxaban 10 MG Tablet PO (17:02)
--- NOTE | 2024-06-15 17:20 | NURSING ---
pt off unit to xray
--- NOTE | 2024-06-15 17:20 | RAD_ITS ---
PROCEDURE: CHEST PA AND LATERAL REASON FOR EXAM: Harsh cough. TECHNIQUE: PA and lateral views of the chest. COMPARISON: Radiographs 05/29/[address] 02/10/2024 FINDINGS: Heart: Coronary stent.. Mediastinum: Atherosclerosis. Tortuous aorta. Hilar prominence on the lateral view probably reflecting lymphadenopathy seen on previous CT. Lungs/pleura: Similar vague/mild interstitial densities. Nodules better seen on 02/10/2024. No new focal consolidation identified. No sizeable pleural effusion or visible pneumothorax. Bones: Old right rib fracture.. Lines and support devices: None. RAD/Chest PA and Lateral IMPRESSION: 1. Similar vague/mild interstitial densities compared with 05/29/2024, potentia lly chronic. No new focal consolidation identified. Follow-up CT again recommended to ensure resolution of nodules and lymphadenopathy seen on previous CT 02/10/2024. 2. Additional description as above. Reading Location: [id number]
--- NOTE | 2024-06-15 17:24 | NURSING ---
pt requesting sputum to be sent to lab & wanting resp panel done. dr juarez updated, new orders for chest xray, covid, resp panel & sputum culture. pt continues with harsh moist productive cough intermittently, thick brown/price sputum. pt was admitted to TCU with pneumonia d/t pseudomonas, + influenza and treated appropriately by I.D.
--- NOTE | 2024-06-15 18:41 | NURSING ---
chest xray results texted to Dr Orozco, viewed, no new orders at this time.
--- NOTE | 2024-06-15 21:38 | NURSING ---
Dr. Orozco paged and updated via phone call on respiratory panel results, rhinovirus positive, Dr. Orozco responded to update patient on results, no treatment needed, it is like a cold, Dr. Orozco responded thank you for the update.
[2024-06-15] MEDS: Magnesium Chloride 64 MG Delay Rel.Tablet 128 MG PO (22:07)
[2024-06-15] MEDS: Zolpidem Tartrate 5 MG Tablet 10 MG PO (22:15)
--- NOTE | 2024-06-15 22:15 | NURSING ---
Patient updated on respiratory panel results of rhinovirus positive. no concerns voiced, states I have had that before.
[2024-06-16] MEDS: Acetaminophen 500 MG Tablet 1000 MG PO ×3 (06:43→22:06)
--- NOTE | 2024-06-16 07:30 | NURSING ---
dr juarez aware of resp panel + rhinovirus. ordered CT of chest today. pt updated. pt does have history of CLL. pt has been placed in droplet precautions again. all treatments/care provided in pt room
[2024-06-16 09:45] VITALS: BP 117/64; PULSE 97; RESP 18; TEMP 36.8; O2SAT 92
[2024-06-16] MEDS: Umeclidinium Bromide Inhaler 1 PUFF INHALATION (09:48)
[2024-06-16] MEDS: Fluticasone/Salmeterol 232-14 Inhaler 1 PUFF INHALATION ×2 (09:48→22:06)
[2024-06-16] MEDS: Hydroxyurea 500 MG Capsule 1500 MG PO (09:48)
[2024-06-16] MEDS: Multivitamins,Ther W-Minerals Tablet 1 TABLET PO (09:48)
[2024-06-16] MEDS: Calcitriol 0.25 MCG Capsule PO (09:49)
[2024-06-16] MEDS: Pantoprazole Sodium 40 MG Tablet PO (09:49)
[2024-06-16] MEDS: Escitalopram Oxalate 10 MG Tablet 5 MG PO (09:49)
[2024-06-16] MEDS: Calcium (Elemental) 500 MG Tablet PO (09:49)
[2024-06-16 09:50] VITALS: PULSE 97
[2024-06-16] MEDS: Ascorbic Acid 500 MG Tablet 2000 MG PO (09:50)
[2024-06-16] MEDS: Metoprolol(XL)Succ 100 MG Tablet PO (09:50)
[2024-06-16] MEDS: guaiFENesin 10 ML UDC (200MG/10ML) PO ×2 (09:55→22:05)
[2024-06-16] MEDS: oxyCODONE 5 MG Tablet PO ×3 (09:55→22:06)
[2024-06-16] MEDS: Ferrous Sulfate 325 MG Tablet PO (13:35)
[2024-06-16] MEDS: Rivaroxaban 10 MG Tablet PO (16:02)
--- NOTE | 2024-06-16 17:56 | NURSING ---
dr juarez reviewd CT scan results, no new orders. stabel examination, 6 month follow up recommended
[2024-06-16] MEDS: Magnesium Chloride 64 MG Delay Rel.Tablet 128 MG PO (22:06)
[2024-06-16] MEDS: cycloBENZAPRine HCl 10 MG Tablet PO (22:06)
[2024-06-16] MEDS: Zolpidem Tartrate 5 MG Tablet 10 MG PO (22:06)
[2024-06-16] MEDS: Albuterol IH (6.7 GM) 1 PUFF INHALER INHALATION (22:07)
[2024-06-16 22:25] VITALS: PULSE 79; RESP 18
[2024-06-17 05:47] LABS: Absolute Lymphocyte Count 15.42 X10^3/uL (0.83-4.51); Absolute Neutrophil Count 2.2 X10^3/uL (2.0-7.7); Basophil# 0.03 X10^3/uL; Basophil% 0.1 % (0-1); Eosinophil# 0.02 X10^3/uL; Eosinophils% 0.1 % (0-5); Hemoglobin 9.4 g/dL (13.0-16.5); Lymphocyte # 15.42 X10^3/ul (0.83-4.51); Mean Corp Hgb Conc 32.4 g/dL (32-36); Mean Corpuscular Volume 114.2 fL (80-94); Mean Platelet Vol. 9.2 fl (6.2-12.0); Monocyte# 8.36 X10^3/uL; NRBC Flagged by Analyzer 0.1 % (0-5); Neutrophil # 2.21 X10^3/uL (2.7-7.7); Neutrophil % 8.5 % (47-70); POSITIVE DIFFERENTIAL YES; POSITIVE MORPHOLOGY YES; Platelet Count 364 K/mm3 (150-450); Red Blood Count 2.54 M/mm3 (4.6-6.2); White Blood Count 26.1 K/mm3 (4.4-11.0)
[2024-06-17] MEDS: Acetaminophen 500 MG Tablet 1000 MG PO ×3 (06:26→22:30)
[2024-06-17] MEDS: guaiFENesin 10 ML UDC (200MG/10ML) PO ×3 (06:26→22:30)
[2024-06-17] MEDS: oxyCODONE 5 MG Tablet PO ×3 (06:27→22:31)
[2024-06-17 06:54] LABS: Differential Indicated SCAN CRITERIA MET
[2024-06-17 07:34] LABS: Anion Gap 15 (5-15); Anisocytosis 2+; BUN 33 mg/dL (4-19); Calcium,Total 9.8 mg/dL (7.6-11.0); Carbon Dioxide 20.4 mmol/L (21.0-32.0); Chloride 104 mmol/L (98-108); Creatinine, Serum 1.55 mg/dL (0.70-1.20); EST Glomerular Filtration Rate 48 (>60); Estimated Creatinine Clearance 44.35 ml/min (50-250); Glucose 100 mg/dL (70-99); Potassium 4.7 mmol/L (3.3-5.1); Smudge Cells 2+; Sodium Level 139 mmol/L (133-145)
[2024-06-17] MEDS: Ascorbic Acid 500 MG Tablet 2000 MG PO (09:01)
[2024-06-17] MEDS: Hydroxyurea 500 MG Capsule 1500 MG PO (09:01)
[2024-06-17] MEDS: Escitalopram Oxalate 10 MG Tablet 5 MG PO (09:02)
[2024-06-17] MEDS: Calcitriol 0.25 MCG Capsule PO (09:02)
[2024-06-17] MEDS: Multivitamins,Ther W-Minerals Tablet 1 TABLET PO (09:02)
[2024-06-17] MEDS: Pantoprazole Sodium 40 MG Tablet PO (09:02)
[2024-06-17] MEDS: Calcium (Elemental) 500 MG Tablet PO (09:02)
[2024-06-17] MEDS: Umeclidinium Bromide Inhaler 1 PUFF INHALATION (09:08)
[2024-06-17] MEDS: Fluticasone/Salmeterol 232-14 Inhaler 1 PUFF INHALATION (09:08)
[2024-06-17 09:10] VITALS: BP 121/76; PULSE 89; RESP 16; TEMP 36.7; O2SAT 94
[2024-06-17] MEDS: Metoprolol(XL)Succ 100 MG Tablet PO (09:10)
[2024-06-17] MEDS: Ferrous Sulfate 325 MG Tablet PO (13:44)
[2024-06-17] MEDS: Rivaroxaban 10 MG Tablet PO (16:56)
[2024-06-17] MEDS: Magnesium Chloride 64 MG Delay Rel.Tablet 128 MG PO (22:29)
[2024-06-17] MEDS: Albuterol IH (6.7 GM) 1 PUFF INHALER INHALATION (22:31)
[2024-06-17] MEDS: cycloBENZAPRine HCl 10 MG Tablet PO (22:31)
[2024-06-17] MEDS: Zolpidem Tartrate 5 MG Tablet 10 MG PO (22:31)
[2024-06-18] MEDS: guaiFENesin 10 ML UDC (200MG/10ML) PO ×3 (06:32→20:14)
[2024-06-18] MEDS: oxyCODONE 5 MG Tablet PO ×3 (06:32→20:14)
[2024-06-18] MEDS: Acetaminophen 500 MG Tablet 1000 MG PO ×3 (06:33→20:13)
[2024-06-18] MEDS: Multivitamins,Ther W-Minerals Tablet 1 TABLET PO (09:42)
[2024-06-18] MEDS: Calcium (Elemental) 500 MG Tablet PO (09:42)
[2024-06-18] MEDS: Hydroxyurea 500 MG Capsule 1500 MG PO (09:43)
[2024-06-18] MEDS: Escitalopram Oxalate 10 MG Tablet 5 MG PO (09:43)
[2024-06-18 09:44] VITALS: PULSE 98
[2024-06-18] MEDS: Pantoprazole Sodium 40 MG Tablet PO (09:44)
[2024-06-18] MEDS: Ascorbic Acid 500 MG Tablet 2000 MG PO (09:44)
[2024-06-18] MEDS: Metoprolol(XL)Succ 100 MG Tablet PO (09:44)
[2024-06-18] MEDS: Calcitriol 0.25 MCG Capsule PO (09:44)
[2024-06-18 10:04] VITALS: BP 92/54; PULSE 99
[2024-06-18 10:05] VITALS: BP 114/70; PULSE 99; RESP 16; RESP 18; TEMP 36.4; O2SAT 91
[2024-06-18] MEDS: Albuterol IH (6.7 GM) 1 PUFF INHALER INHALATION ×2 (10:18→20:17)
--- NOTE | 2024-06-18 10:30 | NURSING ---
DR GARNICA UPDATED ON SPUTUM GRAM STAIN AND PRELIM CULTURE, NO NEW ORDERS AT THIS TIME, WAIT FOR FINAL.
[2024-06-18] MEDS: Ferrous Sulfate 325 MG Tablet PO (13:43)
[2024-06-18] MEDS: Rivaroxaban 10 MG Tablet PO (16:15)
[2024-06-18] MEDS: cycloBENZAPRine HCl 10 MG Tablet PO (16:20)
[2024-06-18 16:37] VITALS: O2SAT 95
[2024-06-18] MEDS: Magnesium Chloride 64 MG Delay Rel.Tablet 128 MG PO (20:14)
[2024-06-18] MEDS: Nystatin Powder 15gm Bottle 1 APPLIC TOPICAL (20:15)
[2024-06-19] MEDS: oxyCODONE 5 MG Tablet PO ×3 (03:54→20:45)
[2024-06-19] MEDS: Acetaminophen 500 MG Tablet 1000 MG PO ×3 (06:18→20:45)
[2024-06-19] MEDS: Calcitriol 0.25 MCG Capsule PO (09:24)
[2024-06-19] MEDS: Hydroxyurea 500 MG Capsule 1500 MG PO (09:24)
[2024-06-19] MEDS: Pantoprazole Sodium 40 MG Tablet PO (09:24)
[2024-06-19] MEDS: Escitalopram Oxalate 10 MG Tablet 5 MG PO (09:24)
[2024-06-19] MEDS: Calcium (Elemental) 500 MG Tablet PO (09:24)
[2024-06-19] MEDS: Multivitamins,Ther W-Minerals Tablet 1 TABLET PO (09:24)
[2024-06-19] MEDS: Ascorbic Acid 500 MG Tablet 2000 MG PO (09:25)
[2024-06-19] MEDS: cycloBENZAPRine HCl 10 MG Tablet PO (09:30)
[2024-06-19 09:36] VITALS: BP 120/74; PULSE 89
[2024-06-19] MEDS: Metoprolol(XL)Succ 100 MG Tablet PO (09:36)
[2024-06-19] MEDS: Fluticasone/Salmeterol 232-14 Inhaler 1 PUFF INHALATION (09:37)
[2024-06-19] MEDS: Umeclidinium Bromide Inhaler 1 PUFF INHALATION (09:37)
[2024-06-19] MEDS: Nystatin Powder 15gm Bottle 1 APPLIC TOPICAL ×2 (09:39→22:21)
[2024-06-19 11:08] VITALS: BP 120/74; PULSE 89; RESP 17; TEMP 36.3; O2SAT 98
[2024-06-19] MEDS: Ferrous Sulfate 325 MG Tablet PO (11:52)
[2024-06-19] MEDS: 0.9% Saline Lock 10 ML Syringe IV ×2 (13:40→22:18)
[2024-06-19] MEDS: Meropenem 1 GM in 0.9% Normal Saline (100mL MB+) 100 ML IV ×2 (14:18→22:20)
[2024-06-19] MEDS: 0.9% Normal Saline (100mL Bag) 100 ML 15 ML IV (14:20)
--- NOTE | 2024-06-19 14:39 | NURSING ---
Sputum culture results called to Dr. Orozco, new order for meropenem 1g IV Q8H x 10 days, order entered and renal dosed per pharmacy.
[2024-06-19] MEDS: Rivaroxaban 10 MG Tablet PO (17:25)
[2024-06-19] MEDS: guaiFENesin 10 ML UDC (200MG/10ML) PO (20:44)
[2024-06-19] MEDS: Magnesium Chloride 64 MG Delay Rel.Tablet 128 MG PO (20:44)
[2024-06-19] MEDS: Albuterol IH (6.7 GM) 1 PUFF INHALER INHALATION (21:00)
[2024-06-19] MEDS: Zolpidem Tartrate 5 MG Tablet 10 MG PO (22:15)
[2024-06-20] MEDS: Acetaminophen 500 MG Tablet 1000 MG PO ×3 (06:54→21:54)
[2024-06-20] MEDS: Multivitamins,Ther W-Minerals Tablet 1 TABLET PO (09:41)
[2024-06-20] MEDS: Calcium (Elemental) 500 MG Tablet PO (09:43)
[2024-06-20] MEDS: Calcitriol 0.25 MCG Capsule PO (09:44)
[2024-06-20] MEDS: Escitalopram Oxalate 10 MG Tablet 5 MG PO (09:44)
[2024-06-20] MEDS: Ascorbic Acid 500 MG Tablet 2000 MG PO (09:44)
[2024-06-20] MEDS: Pantoprazole Sodium 40 MG Tablet PO (09:44)
[2024-06-20] MEDS: cycloBENZAPRine HCl 10 MG Tablet PO (09:47)
[2024-06-20] MEDS: oxyCODONE 5 MG Tablet PO (09:47)
[2024-06-20] MEDS: 0.9% Saline Lock 10 ML Syringe IV (09:48)
[2024-06-20] MEDS: Meropenem 1 GM in 0.9% Normal Saline (100mL MB+) 100 ML IV ×2 (09:48→21:53)
[2024-06-20] MEDS: Nystatin Powder 15gm Bottle 1 APPLIC TOPICAL (09:48)
[2024-06-20] MEDS: Umeclidinium Bromide Inhaler 1 PUFF INHALATION (09:51)
[2024-06-20 09:53] VITALS: BP 119/67; PULSE 102
[2024-06-20] MEDS: Metoprolol(XL)Succ 100 MG Tablet PO (09:53)
[2024-06-20] MEDS: Fluticasone/Salmeterol 232-14 Inhaler 1 PUFF INHALATION (09:53)
[2024-06-20] MEDS: guaiFENesin 10 ML UDC (200MG/10ML) PO ×2 (11:02→22:04)
[2024-06-20] MEDS: Ferrous Sulfate 325 MG Tablet PO (11:02)
[2024-06-20 11:56] VITALS: BP 119/67; PULSE 102; RESP 16; TEMP 36.3; O2SAT 91
--- NOTE | 2024-06-20 13:50 | NURSING ---
Addendum entered by Natalia Melchor 06/20/24 13:57: Clarification lotrisone topical BID until healed Original Note: Resident has red raw area in groin and c/o itchiness, Dr. Orozco updated and N.O. fluconazole 100mg PO QD x 10 days and apply lotrisone to groin QD until healed
[2024-06-20] MEDS: Fluconazole 100 MG Tablet PO (14:27)
[2024-06-20] MEDS: Rivaroxaban 10 MG Tablet PO (18:00)
[2024-06-20] MEDS: Clotrimazole/Betamethasone 1 Tube 1 APPLIC TOPICAL (21:49)
[2024-06-20] MEDS: Magnesium Chloride 64 MG Delay Rel.Tablet 128 MG PO (21:55)
[2024-06-20] MEDS: Albuterol IH (6.7 GM) 1 PUFF INHALER INHALATION (22:01)
[2024-06-20] MEDS: Zolpidem Tartrate 5 MG Tablet 10 MG PO (22:04)
--- NOTE | 2024-06-21 00:05 | NURSING ---
All care provided in room due to droplet precautions.
[2024-06-21] MEDS: 0.9% Saline Lock 10 ML Syringe IV ×3 (01:35→22:48)
[2024-06-21] MEDS: Acetaminophen 500 MG Tablet 1000 MG PO ×3 (06:32→22:43)
[2024-06-21] MEDS: Multivitamins,Ther W-Minerals Tablet 1 TABLET PO (09:06)
[2024-06-21] MEDS: Calcium (Elemental) 500 MG Tablet PO (09:07)
[2024-06-21] MEDS: Hydroxyurea 500 MG Capsule 1500 MG PO (09:08)
[2024-06-21] MEDS: Fluconazole 100 MG Tablet PO (09:08)
[2024-06-21] MEDS: Escitalopram Oxalate 10 MG Tablet 5 MG PO (09:08)
[2024-06-21 09:09] VITALS: BP 127/77; PULSE 98
[2024-06-21] MEDS: Metoprolol(XL)Succ 100 MG Tablet PO (09:09)
[2024-06-21] MEDS: Calcitriol 0.25 MCG Capsule PO (09:09)
[2024-06-21] MEDS: Pantoprazole Sodium 40 MG Tablet PO (09:09)
[2024-06-21] MEDS: Ascorbic Acid 500 MG Tablet 2000 MG PO (09:10)
[2024-06-21] MEDS: Albuterol IH (6.7 GM) 1 PUFF INHALER INHALATION (09:28)
[2024-06-21] MEDS: Clotrimazole/Betamethasone 1 Tube 1 APPLIC TOPICAL ×2 (09:29→22:44)
[2024-06-21] MEDS: Nystatin Powder 15gm Bottle 1 APPLIC TOPICAL ×2 (09:33→22:46)
[2024-06-21] MEDS: Meropenem 1 GM in 0.9% Normal Saline (100mL MB+) 100 ML IV ×2 (09:42→22:47)
[2024-06-21 09:51] VITALS: BP 127/77; PULSE 98; RESP 18; TEMP 36.3; O2SAT 94
--- NOTE | 2024-06-21 10:20 | NURSING ---
ALL CARE GIVEN IN ROOM DUE TO PT IN PRECAUTIONS FOR MAYDA VIRUS.
[2024-06-21] MEDS: Ferrous Sulfate 325 MG Tablet PO (11:20)
[2024-06-21] MEDS: Ondansetron 8 MG Tablet PO (11:41)
[2024-06-21] MEDS: Rivaroxaban 10 MG Tablet PO (17:18)
--- NOTE | 2024-06-21 19:48 | PN.TCU_ITS ---
Subjective Subjective Resident seen, examined for regulatory visit. His bronchitis recurred, sputum growing drug resistant pseudomonas aeruginosa, treat again with Meropenem. He also has tinea cruris, failed Nystatin powder, add Lotrisone cream, fluconazole. Dr. Pascual has told him in the past he needs a total body transplant. Siva only stays well for 10 to 14 days before he has another current infection. His rhinovirus is persistently positive on respiratory panel. Resident is not ready for hospice. Objective Data Objective Data Vital Signs: Vital Signs Temp Pulse Resp BP Pulse Ox O2 Del Method 97.4 F L 98 18 127/77 H 94 Room Air 06/21/24 09:51 06/21/24 09:51 06/21/24 09:51 06/21/24 09:51 06/21/24 09:51 06/21/24 09:51 Oxygen Delivery Method Room Air Weight: 79.832 kg Body Mass Index (BMI) 25.9 Intake & Output: Intake and Output for Last 24 Hours 06/19/24 06/21/24 06/21/24 23:59 00:59 23:59 Intake Total 1387 / 1387 1080 / 1080 1320 / 1320 Output Total 1400 / 1400 800 / 800 Balance -13 / -13 1080 / 1080 520 / 520 Lab / Micro Data 06/17/24 05:15 06/17/24 05:15 Micro: Microbiology 06/15/24 17:05 Sputum, Expectorated/Coughed Gram Stain - Final 06/15/24 17:05 Sputum, Expectorated/Coughed Respiratory Culture - Final Pseudomonas aeruginosa 06/15/24 17:37 Mucosa - Nasopharyngeal Respiratory Panel (PCR) - Final Rhinovirus 06/15/24 17:10 Nasal Secretion SARS-CoV-2 Antigen (Rapid) - Final 05/29/24 21:25 Sputum, Expectorated/Coughed Gram Stain - Final 05/29/24 21:25 Sputum, Expectorated/Coughed Respiratory Culture - Final Pseudomonas aeruginosa Pseudomonas aeruginosa#2 06/02/24 05:15 Nasal Secretion SARS-CoV-2 Antigen (Rapid) - Final 05/31/24 09:00 Stool Stool Occult Blood (TODD) - Final Occult Blood Positive 05/29/24 20:30 Mucosa - Nasopharyngeal Respiratory Panel (PCR) - Final Influenza A (Subtype H3) Rhinovirus 05/29/24 20:47 Nasal Secretion SARS-CoV-2 Antigen (Rapid) - Final Physical Exam Const alert General Appearance: cooperative HEENT normocephalic Eyes PERRL and EOMs intact bilaterally Neck supple, no JVD and no carotid bruits Resp normal respiratory effort, normal air movement and clear to auscultation bilaterally Cardio regular rate and regular rhythm GI normal to inspection, nondistended, normoactive bowel sounds, non-tender and non-distended Extremity normal capillary refill Extremity Narrative: Right hip dressings clean, dry, intact. General Extremity: Negative for edema Skin no rashes or lesions noted General Skin Exam: no breakdown Psych affect normal Appearance: appropriate Assessment & Plan Assessment/Plan (1) Debility: (2) Closed right hip fracture: (3) CLL (chronic lymphocytic leukemia): (4) PAOD (peripheral arterial occlusive disease): (5) COPD (chronic obstructive pulmonary disease): (6) Anxiety: (7) Iron deficiency anemia: (8) Chronic diarrhea: (9) Depression: QUALIFIERS: Depression Type: unspecified Qualified Code(s): F32.A - Depression, unspecified (10) Hypomagnesemia: (11) Essential (primary) hypertension: (12) Insomnia: PLAN: Plan 68 year old male with below past medical history hospitalized for right hip fracture, underwent right hip cephalomedullary nail fixation 05/24/[address] Ramsey, postoperative course complicated by acute blood loss anemia requiring 1 unit PRBC transfusion, admitted to TCU with debility, here for rehabilitation, strengthening, prior to discharge home with daughter. * Debility - PT/OT. * Dysphagia- ST. * Pain - Tylenol 1000mg q8, Oxycodone 5mg q4 prn pain (1-10). * Bowel - Magnesium citrate 300mL daily prn. * Adult immunization - Administer pneumonia vaccine, covid vaccine, flu vaccine as appropriate. * DVT prophylaxis - Xarelto 10mg daily. * Pseudomonas aeruginosa bronchitis - Meropenem 1gm iv 12 thru 06/29/2024. * Cough - Robitussin 10ML q4 prn. * COPD - Fluticasone/Salmeterol 232-21 1 puff bid, Incruse 1 puff daily, Albuterol 1 puff q4 prn. * Iron deficiency anemia - Ferrous sulfate 325m daily, Vitamin C 2000mg daily. * Secondary hyperparathyroidism - Calcitriol 0.25mg daily. * Calcium deficiency - Calcium 600mg daily. * Muscle spasm - Flexeril 10mg tid prn. * Depression - Lexapro 5mg daily, increase to 10mg daily for depression. * Thrombocythemia - Hydrea 1500mg 6 days/week. * Hypomagnesemia - Magnesium chloride 128mg qhs. * Hypertension - Metoprolol succinate 100mg daily. * Nutrition - MVI 1 tablet daily. * Nausea - Zofran 8mg daily prn. * GERD - Pantoprazole 40mg daily, Calcium 500mg daily. * DVT/PE - Xarelto 10mg daily. * Insomnia - Zolpidem 10mg qhs prn, stable chronic detention use, GDR not recommended. * Tinea cruris - Nystatin powder topical bid, Lotrisone cream topical bid, Fluconazole 100mg daily thru 06/25/2024.
[2024-06-21] MEDS: guaiFENesin 10 ML UDC (200MG/10ML) PO (22:43)
[2024-06-21] MEDS: Magnesium Chloride 64 MG Delay Rel.Tablet 128 MG PO (22:44)
[2024-06-21 22:45] VITALS: RESP 18
[2024-06-21] MEDS: oxyCODONE 5 MG Tablet PO (22:48)
[2024-06-21] MEDS: cycloBENZAPRine HCl 10 MG Tablet PO (22:48)
[2024-06-21] MEDS: Zolpidem Tartrate 5 MG Tablet 10 MG PO (22:48)
[2024-06-22] MEDS: Acetaminophen 500 MG Tablet 1000 MG PO ×3 (06:33→21:30)
[2024-06-22] MEDS: guaiFENesin 10 ML UDC (200MG/10ML) PO ×2 (06:33→21:30)
[2024-06-22 06:46] VITALS: RESP 18
[2024-06-22] MEDS: 0.9% Normal Saline (100mL Bag) 100 ML 15 ML IV (10:01)
[2024-06-22 10:02] VITALS: BP 137/74; PULSE 90
[2024-06-22] MEDS: oxyCODONE 5 MG Tablet PO ×2 (10:02→21:31)
[2024-06-22] MEDS: Ascorbic Acid 500 MG Tablet 2000 MG PO (10:02)
[2024-06-22] MEDS: Escitalopram Oxalate 10 MG Tablet PO (10:02)
[2024-06-22] MEDS: Hydroxyurea 500 MG Capsule 1500 MG PO (10:02)
[2024-06-22] MEDS: Metoprolol(XL)Succ 100 MG Tablet PO (10:02)
[2024-06-22] MEDS: Calcitriol 0.25 MCG Capsule PO (10:02)
[2024-06-22] MEDS: Multivitamins,Ther W-Minerals Tablet 1 TABLET PO (10:03)
[2024-06-22] MEDS: Fluconazole 100 MG Tablet PO (10:03)
[2024-06-22] MEDS: Calcium (Elemental) 500 MG Tablet PO (10:03)
[2024-06-22] MEDS: Pantoprazole Sodium 40 MG Tablet PO (10:03)
[2024-06-22] MEDS: Meropenem 1 GM in 0.9% Normal Saline (100mL MB+) 100 ML IV ×2 (10:05→21:35)
[2024-06-22] MEDS: Clotrimazole/Betamethasone 1 Tube 1 APPLIC TOPICAL ×2 (10:06→21:31)
[2024-06-22] MEDS: 0.9% Saline Lock 10 ML Syringe IV ×2 (10:13→21:33)
[2024-06-22] MEDS: Albuterol IH (6.7 GM) 1 PUFF INHALER INHALATION ×2 (10:13→21:34)
[2024-06-22] MEDS: Nystatin Powder 15gm Bottle 1 APPLIC TOPICAL ×2 (10:16→21:32)
[2024-06-22 10:37] VITALS: BP 137/74; PULSE 90; RESP 16; TEMP 36.2; O2SAT 93
--- NOTE | 2024-06-22 11:12 | NURSING ---
pt remains in droplet precautions, all therapy/care done in pt room
[2024-06-22] MEDS: Ferrous Sulfate 325 MG Tablet PO (12:57)
--- NOTE | 2024-06-22 14:37 | CASEMGMT ---
Social Work LOPEZ noted pt speaking about being active with palliative care prior to admission. SW inquired to [facility]. Confirmed pt is active on a PRN basis. Janie Robb MANAGER ACUTE ENGRAVINGS POLISHER
--- NOTE | 2024-06-22 15:55 | NURSING ---
another RN reported pt saline lock leaking when flushing after IV ATB infusion. This nurse removed dressing, flushed IV with blood return. scant amt of leaking noted at insertion site. New dressing placed, will monitor area. pt denies pain or irritation.
--- NOTE | 2024-06-22 16:32 | CHAPLAIN ---
Type of Pastoral Visit ___ Initial Visit _x__ Follow-up Visit ___ On-call Visit ___ General Patient Visit ___ Spiritual Assessment ___ Family Conference ___ Bereavement ___ Rapid Response ___ Code Blue ___ Other (describe below) Pastoral Care Referral From _x__ Patient ___ Family ___ Nurse ___ Physician ___ Studio Producer ___ Stockroom Attendant ___ Other (describe below) Sacrament/Intervention _x__ Active listening ___ Anointing ___ Mormon ___ Bereavement ___ Communion ___ Ashlyn exploration ___ _x__ Life review _x__ Prayer ___ Reconciliation ___ Sacrament of Sick _x__ Supportive presence ___ Wedding ___ Other (describe below) Pastoral Comments patient desires time for visits and prayer support; opportunity was taken today to sit with the patient and let him talk and express his thoughts and feelings; prayer and presence
[2024-06-22] MEDS: Rivaroxaban 10 MG Tablet PO (17:58)
[2024-06-22] MEDS: Zolpidem Tartrate 5 MG Tablet 10 MG PO (21:31)
[2024-06-22] MEDS: cycloBENZAPRine HCl 10 MG Tablet PO (21:31)
[2024-06-22] MEDS: Magnesium Chloride 64 MG Delay Rel.Tablet 128 MG PO (21:32)
[2024-06-22] MEDS: 0.9% Normal Saline (100mL Bag) 100 ML 33 ML IV (21:34)
[2024-06-23] MEDS: Acetaminophen 500 MG Tablet 1000 MG PO ×3 (06:48→22:09)
[2024-06-23] MEDS: guaiFENesin 10 ML UDC (200MG/10ML) PO ×3 (06:48→22:06)
[2024-06-23] MEDS: Multivitamins,Ther W-Minerals Tablet 1 TABLET PO (09:23)
[2024-06-23] MEDS: Calcium (Elemental) 500 MG Tablet PO (09:23)
[2024-06-23] MEDS: Hydroxyurea 500 MG Capsule 1500 MG PO (09:24)
[2024-06-23] MEDS: Fluconazole 100 MG Tablet PO (09:24)
[2024-06-23] MEDS: Calcitriol 0.25 MCG Capsule PO (09:25)
[2024-06-23] MEDS: Escitalopram Oxalate 10 MG Tablet PO (09:25)
[2024-06-23] MEDS: Pantoprazole Sodium 40 MG Tablet PO (09:25)
[2024-06-23] MEDS: Ascorbic Acid 500 MG Tablet 2000 MG PO (09:25)
[2024-06-23 09:31] VITALS: BP 130/85; PULSE 86
[2024-06-23] MEDS: Metoprolol(XL)Succ 100 MG Tablet PO (09:31)
[2024-06-23] MEDS: Clotrimazole/Betamethasone 1 Tube 1 APPLIC TOPICAL ×2 (09:34→22:10)
[2024-06-23] MEDS: Nystatin Powder 15gm Bottle 1 APPLIC TOPICAL ×2 (09:34→22:11)
[2024-06-23] MEDS: 0.9% Saline Lock 10 ML Syringe IV ×2 (09:48→22:12)
[2024-06-23] MEDS: Meropenem 1 GM in 0.9% Normal Saline (100mL MB+) 100 ML IV ×2 (09:55→22:16)
[2024-06-23 09:59] VITALS: BP 130/85; PULSE 86; RESP 18; TEMP 36.3; O2SAT 95
[2024-06-23] MEDS: Ferrous Sulfate 325 MG Tablet PO (11:06)
[2024-06-23] MEDS: 0.9% Normal Saline (100mL Bag) 100 ML 33 ML IV (13:16)
[2024-06-23] MEDS: Rivaroxaban 10 MG Tablet PO (17:54)
[2024-06-23] MEDS: Albuterol IH (6.7 GM) 1 PUFF INHALER INHALATION (22:06)
[2024-06-23] MEDS: Zolpidem Tartrate 5 MG Tablet 10 MG PO (22:07)
[2024-06-23] MEDS: cycloBENZAPRine HCl 10 MG Tablet PO (22:07)
[2024-06-23] MEDS: oxyCODONE 5 MG Tablet PO (22:07)
[2024-06-23] MEDS: Magnesium Chloride 64 MG Delay Rel.Tablet 128 MG PO (22:08)
[2024-06-23 22:15] VITALS: RESP 18
[2024-06-24 06:05] LABS: Absolute Lymphocyte Count 17.97 X10^3/uL (0.83-4.51); Absolute Neutrophil Count 3.4 X10^3/uL (2.0-7.7); Basophil# 0.02 X10^3/uL; Basophil% 0.1 % (0-1); Eosinophil# 0.02 X10^3/uL; Eosinophils% 0.1 % (0-5); Hemoglobin 9.8 g/dL (13.0-16.5); Lymphocyte # 17.97 X10^3/ul (0.83-4.51); Lymphocyte % 64.6 % (19-41); Mean Corp Hgb Conc 32.7 g/dL (32-36); Mean Corpuscular Hgb 38.1 pg (27.0-32.0); Mean Corpuscular Volume 116.7 fL (80-94); Mean Platelet Vol. 9.3 fl (6.2-12.0); Monocyte# 6.18 X10^3/uL; Monocyte% 22.2 % (0-10); NRBC Flagged by Analyzer 0.1 % (0-5); Neutrophil # 3.39 X10^3/uL (2.7-7.7); Neutrophil % 12.2 % (47-70); POSITIVE DIFFERENTIAL YES; POSITIVE MORPHOLOGY YES; Platelet Count 283 K/mm3 (150-450); Red Blood Count 2.57 M/mm3 (4.6-6.2); White Blood Count 27.8 K/mm3 (4.4-11.0)
[2024-06-24] MEDS: guaiFENesin 10 ML UDC (200MG/10ML) PO ×2 (06:34→22:41)
[2024-06-24] MEDS: Acetaminophen 500 MG Tablet 1000 MG PO ×3 (06:35→22:33)
[2024-06-24 06:46] LABS: Anion Gap 13 (5-15); BUN 30 mg/dL (4-19); BUN/Creat Ratio 18.9 RATIO (10-20); Calcium,Total 9.9 mg/dL (7.6-11.0); Carbon Dioxide 20.6 mmol/L (21.0-32.0); Chloride 106 mmol/L (98-108); Creatinine, Serum 1.57 mg/dL (0.70-1.20); EST Glomerular Filtration Rate 47 (>60); Estimated Creatinine Clearance 43.78 ml/min (50-250); Glucose 93 mg/dL (70-99); Potassium 4.9 mmol/L (3.3-5.1); Sodium Level 140 mmol/L (133-145)
[2024-06-24 06:48] VITALS: PULSE 78; RESP 18
[2024-06-24 07:07] LABS: Differential Indicated SCAN CRITERIA MET
[2024-06-24 07:10] LABS: Acanthocytes RARE; Anisocytosis 3+; Atypical Lymphocyte 3+ %; Macrocytosis 3+; Ovalocyte 1+; Platelet Estimate ADEQUATE (ADEQ); Polychromasia 1+
[2024-06-24 07:11] LABS: Schistocytes RARE; Tear Drop Cell RARE
[2024-06-24] MEDS: Clotrimazole/Betamethasone 1 Tube 1 APPLIC TOPICAL ×2 (09:53→22:24)
[2024-06-24] MEDS: Ascorbic Acid 500 MG Tablet 2000 MG PO (09:54)
[2024-06-24] MEDS: Multivitamins,Ther W-Minerals Tablet 1 TABLET PO (09:55)
[2024-06-24] MEDS: Pantoprazole Sodium 40 MG Tablet PO (09:55)
[2024-06-24] MEDS: Calcium (Elemental) 500 MG Tablet PO (09:55)
[2024-06-24 09:56] VITALS: BP 109/63; PULSE 81
[2024-06-24] MEDS: Metoprolol(XL)Succ 100 MG Tablet PO (09:56)
[2024-06-24] MEDS: Calcitriol 0.25 MCG Capsule PO (09:57)
[2024-06-24] MEDS: Fluconazole 100 MG Tablet PO (09:57)
[2024-06-24] MEDS: Hydroxyurea 500 MG Capsule 1500 MG PO (09:58)
[2024-06-24] MEDS: Escitalopram Oxalate 10 MG Tablet PO (09:58)
[2024-06-24] MEDS: 0.9% Saline Lock 10 ML Syringe IV ×2 (10:03→22:19)
[2024-06-24] MEDS: Meropenem 1 GM in 0.9% Normal Saline (100mL MB+) 100 ML IV ×2 (10:07→22:49)
[2024-06-24 10:14] VITALS: BP 109/63; PULSE 81; RESP 18; TEMP 36.3; O2SAT 92
[2024-06-24] MEDS: Ferrous Sulfate 325 MG Tablet PO (11:26)
[2024-06-24] MEDS: Rivaroxaban 10 MG Tablet PO (17:22)
[2024-06-24] MEDS: 0.9% Normal Saline (100mL Bag) 100 ML 15 ML IV (22:17)
[2024-06-24] MEDS: Magnesium Chloride 64 MG Delay Rel.Tablet 128 MG PO (22:32)
[2024-06-24] MEDS: Albuterol IH (6.7 GM) 1 PUFF INHALER INHALATION (22:34)
[2024-06-24] MEDS: cycloBENZAPRine HCl 10 MG Tablet PO (22:40)
[2024-06-24] MEDS: Zolpidem Tartrate 5 MG Tablet 10 MG PO (22:40)
[2024-06-24] MEDS: oxyCODONE 5 MG Tablet PO (22:41)
[2024-06-25] MEDS: Acetaminophen 500 MG Tablet 1000 MG PO ×3 (06:12→21:49)
[2024-06-25 09:00] VITALS: BP 139/64; PULSE 90; RESP 18; TEMP 36.9; O2SAT 92
[2024-06-25 09:14] VITALS: BP 139/64; PULSE 90
[2024-06-25] MEDS: Metoprolol(XL)Succ 100 MG Tablet PO (09:14)
[2024-06-25] MEDS: Ascorbic Acid 500 MG Tablet 2000 MG PO (09:14)
[2024-06-25] MEDS: Calcium (Elemental) 500 MG Tablet PO (09:14)
[2024-06-25] MEDS: Escitalopram Oxalate 10 MG Tablet PO (09:14)
[2024-06-25] MEDS: Multivitamins,Ther W-Minerals Tablet 1 TABLET PO (09:14)
[2024-06-25] MEDS: Pantoprazole Sodium 40 MG Tablet PO (09:14)
[2024-06-25] MEDS: Fluconazole 100 MG Tablet PO (09:14)
[2024-06-25] MEDS: Calcitriol 0.25 MCG Capsule PO (09:14)
[2024-06-25] MEDS: Hydroxyurea 500 MG Capsule 1500 MG PO (09:14)
[2024-06-25] MEDS: Clotrimazole/Betamethasone 1 Tube 1 APPLIC TOPICAL ×2 (09:15→21:47)
[2024-06-25] MEDS: Albuterol IH (6.7 GM) 1 PUFF INHALER INHALATION ×2 (09:15→21:46)
[2024-06-25] MEDS: Meropenem 1 GM in 0.9% Normal Saline (100mL MB+) 100 ML IV ×2 (09:23→22:08)
[2024-06-25 09:30] VITALS: PULSE 90; RESP 18; O2SAT 92
[2024-06-25] MEDS: Ferrous Sulfate 325 MG Tablet PO (13:14)
[2024-06-25] MEDS: Rivaroxaban 10 MG Tablet PO (17:21)
[2024-06-25] MEDS: 0.9% Saline Lock 10 ML Syringe IV (21:45)
[2024-06-25] MEDS: Nystatin Powder 15gm Bottle 1 APPLIC TOPICAL (21:48)
[2024-06-25] MEDS: Magnesium Chloride 64 MG Delay Rel.Tablet 128 MG PO (21:49)
[2024-06-25] MEDS: Zolpidem Tartrate 5 MG Tablet 10 MG PO (21:57)
[2024-06-25] MEDS: cycloBENZAPRine HCl 10 MG Tablet PO (21:57)
[2024-06-25] MEDS: guaiFENesin 10 ML UDC (200MG/10ML) PO (21:57)
[2024-06-25] MEDS: oxyCODONE 5 MG Tablet PO (21:58)
[2024-06-26] MEDS: Acetaminophen 500 MG Tablet 1000 MG PO ×3 (06:20→22:40)
[2024-06-26] MEDS: Meropenem 1 GM in 0.9% Normal Saline (100mL MB+) 100 ML IV ×2 (10:12→22:39)
[2024-06-26] MEDS: 0.9% Saline Lock 10 ML Syringe IV ×2 (10:12→22:39)
[2024-06-26] MEDS: 0.9% Normal Saline (100mL Bag) 100 ML 15 ML IV (10:13)
[2024-06-26] MEDS: Calcium (Elemental) 500 MG Tablet PO (10:14)
[2024-06-26] MEDS: Multivitamins,Ther W-Minerals Tablet 1 TABLET PO (10:14)
[2024-06-26] MEDS: Pantoprazole Sodium 40 MG Tablet PO (10:15)
[2024-06-26] MEDS: Hydroxyurea 500 MG Capsule 1500 MG PO (10:15)
[2024-06-26] MEDS: Escitalopram Oxalate 10 MG Tablet PO (10:15)
[2024-06-26] MEDS: Fluconazole 100 MG Tablet PO (10:15)
[2024-06-26] MEDS: Calcitriol 0.25 MCG Capsule PO (10:16)
[2024-06-26] MEDS: Ascorbic Acid 500 MG Tablet 2000 MG PO (10:16)
[2024-06-26] MEDS: Albuterol IH (6.7 GM) 1 PUFF INHALER INHALATION ×2 (10:16→22:41)
[2024-06-26 10:17] VITALS: PULSE 85
[2024-06-26] MEDS: Clotrimazole/Betamethasone 1 Tube 1 APPLIC TOPICAL ×2 (10:17→22:41)
[2024-06-26] MEDS: Metoprolol(XL)Succ 100 MG Tablet PO (10:17)
[2024-06-26 10:26] VITALS: BP 116/73; PULSE 85; RESP 16; TEMP 36.2; O2SAT 94
[2024-06-26] MEDS: Ferrous Sulfate 325 MG Tablet PO (13:16)
[2024-06-26] MEDS: oxyCODONE 5 MG Tablet PO ×2 (16:33→22:50)
[2024-06-26] MEDS: Rivaroxaban 10 MG Tablet PO (16:33)
[2024-06-26] MEDS: Zolpidem Tartrate 5 MG Tablet 10 MG PO (22:39)
[2024-06-26] MEDS: Magnesium Chloride 64 MG Delay Rel.Tablet 128 MG PO (22:40)
[2024-06-27] MEDS: Acetaminophen 500 MG Tablet 1000 MG PO ×3 (06:04→21:59)
[2024-06-27] MEDS: Albuterol IH (6.7 GM) 1 PUFF INHALER INHALATION (09:32)
[2024-06-27] MEDS: Clotrimazole/Betamethasone 1 Tube 1 APPLIC TOPICAL (09:33)
[2024-06-27] MEDS: oxyCODONE 5 MG Tablet PO ×2 (09:35→22:04)
[2024-06-27] MEDS: Calcium (Elemental) 500 MG Tablet PO (09:37)
[2024-06-27] MEDS: Multivitamins,Ther W-Minerals Tablet 1 TABLET PO (09:37)
[2024-06-27] MEDS: Fluconazole 100 MG Tablet PO (09:38)
[2024-06-27] MEDS: Escitalopram Oxalate 10 MG Tablet PO (09:39)
[2024-06-27 09:40] VITALS: BP 143/86; PULSE 85
[2024-06-27] MEDS: Pantoprazole Sodium 40 MG Tablet PO (09:40)
[2024-06-27] MEDS: Calcitriol 0.25 MCG Capsule PO (09:40)
[2024-06-27] MEDS: Metoprolol(XL)Succ 100 MG Tablet PO (09:40)
[2024-06-27] MEDS: Ascorbic Acid 500 MG Tablet 2000 MG PO (09:41)
[2024-06-27 09:45] VITALS: BP 143/86; PULSE 85; RESP 16; TEMP 36.1; O2SAT 93
[2024-06-27] MEDS: 0.9% Saline Lock 10 ML Syringe IV ×2 (09:51→21:57)
[2024-06-27] MEDS: Meropenem 1 GM in 0.9% Normal Saline (100mL MB+) 100 ML IV ×2 (09:54→22:02)
[2024-06-27] MEDS: Ferrous Sulfate 325 MG Tablet PO (11:36)
[2024-06-27] MEDS: Rivaroxaban 10 MG Tablet PO (16:39)
[2024-06-27] MEDS: cycloBENZAPRine HCl 10 MG Tablet PO (21:57)
[2024-06-27] MEDS: Zolpidem Tartrate 5 MG Tablet 10 MG PO (21:58)
[2024-06-27] MEDS: Magnesium Chloride 64 MG Delay Rel.Tablet 128 MG PO (21:58)
[2024-06-27] MEDS: Nystatin Powder 15gm Bottle 1 APPLIC TOPICAL (22:05)
[2024-06-27 22:06] VITALS: RESP 18
[2024-06-27] MEDS: guaiFENesin 10 ML UDC (200MG/10ML) PO (22:10)
[2024-06-28 02:58] VITALS: RESP 18
[2024-06-28] MEDS: Acetaminophen 500 MG Tablet 1000 MG PO ×3 (06:27→21:32)
[2024-06-28 09:21] VITALS: BP 103/55; PULSE 80
[2024-06-28] MEDS: Escitalopram Oxalate 10 MG Tablet PO (09:21)
[2024-06-28] MEDS: Calcitriol 0.25 MCG Capsule PO (09:21)
[2024-06-28] MEDS: Metoprolol(XL)Succ 100 MG Tablet PO (09:21)
[2024-06-28] MEDS: Ascorbic Acid 500 MG Tablet 2000 MG PO (09:21)
[2024-06-28] MEDS: Multivitamins,Ther W-Minerals Tablet 1 TABLET PO (09:21)
[2024-06-28] MEDS: Albuterol IH (6.7 GM) 1 PUFF INHALER INHALATION ×2 (09:21→21:33)
[2024-06-28] MEDS: Hydroxyurea 500 MG Capsule 1500 MG PO (09:21)
[2024-06-28] MEDS: Pantoprazole Sodium 40 MG Tablet PO (09:21)
[2024-06-28] MEDS: Calcium (Elemental) 500 MG Tablet PO (09:21)
[2024-06-28] MEDS: Clotrimazole/Betamethasone 1 Tube 1 APPLIC TOPICAL (09:22)
[2024-06-28] MEDS: Fluconazole 100 MG Tablet PO (09:22)
[2024-06-28] MEDS: 0.9% Saline Lock 10 ML Syringe IV ×2 (09:26→21:36)
[2024-06-28] MEDS: oxyCODONE 5 MG Tablet PO ×2 (09:26→21:35)
[2024-06-28 09:30] VITALS: BP 103/55; PULSE 80; RESP 16; TEMP 37.1; O2SAT 92
[2024-06-28] MEDS: Meropenem 1 GM in 0.9% Normal Saline (100mL MB+) 100 ML IV ×2 (09:32→21:37)
[2024-06-28] MEDS: 0.9% Normal Saline (100mL Bag) 100 ML 15 ML IV (09:34)
--- NOTE | 2024-06-28 10:24 | NURSING ---
Lotrisone cream applied to groin per orders. Right side of groin slightly red. Left side of groin pink. Denies pain/discomfort. No C/O's voiced.
[2024-06-28] MEDS: Ferrous Sulfate 325 MG Tablet PO (11:40)
[2024-06-28] MEDS: guaiFENesin 10 ML UDC (200MG/10ML) PO ×2 (11:42→21:33)
[2024-06-28] MEDS: Rivaroxaban 10 MG Tablet PO (17:12)
[2024-06-28] MEDS: Magnesium Chloride 64 MG Delay Rel.Tablet 128 MG PO (21:29)
[2024-06-28] MEDS: Nystatin Powder 15gm Bottle 1 APPLIC TOPICAL (21:29)
[2024-06-28] MEDS: cycloBENZAPRine HCl 10 MG Tablet PO (21:33)
[2024-06-28] MEDS: Zolpidem Tartrate 5 MG Tablet 10 MG PO (21:34)
[2024-06-29] MEDS: Acetaminophen 500 MG Tablet 1000 MG PO ×3 (06:24→21:49)
[2024-06-29 09:46] VITALS: BP 116/71; PULSE 88; RESP 16; TEMP 36.5; O2SAT 94
[2024-06-29] MEDS: 0.9% Saline Lock 10 ML Syringe IV ×2 (09:57→21:44)
[2024-06-29] MEDS: Meropenem 1 GM in 0.9% Normal Saline (100mL MB+) 100 ML IV (09:59)
[2024-06-29] MEDS: 0.9% Normal Saline (100mL Bag) 100 ML 15 ML IV (10:00)
[2024-06-29] MEDS: Calcium (Elemental) 500 MG Tablet PO (10:02)
[2024-06-29] MEDS: Hydroxyurea 500 MG Capsule 1500 MG PO (10:02)
[2024-06-29] MEDS: Multivitamins,Ther W-Minerals Tablet 1 TABLET PO (10:02)
[2024-06-29] MEDS: Nystatin Powder 15gm Bottle 1 APPLIC TOPICAL (10:03)
[2024-06-29] MEDS: Escitalopram Oxalate 10 MG Tablet PO (10:03)
[2024-06-29 10:04] VITALS: PULSE 88
[2024-06-29] MEDS: Pantoprazole Sodium 40 MG Tablet PO (10:04)
[2024-06-29] MEDS: Ascorbic Acid 500 MG Tablet 2000 MG PO (10:04)
[2024-06-29] MEDS: Metoprolol(XL)Succ 100 MG Tablet PO (10:04)
[2024-06-29] MEDS: Calcitriol 0.25 MCG Capsule PO (10:04)
[2024-06-29] MEDS: Fluconazole 100 MG Tablet PO (10:05)
[2024-06-29] MEDS: Albuterol IH (6.7 GM) 1 PUFF INHALER INHALATION ×2 (10:09→21:50)
[2024-06-29] MEDS: guaiFENesin 10 ML UDC (200MG/10ML) PO ×2 (10:13→21:55)
[2024-06-29] MEDS: Ferrous Sulfate 325 MG Tablet PO (11:16)
[2024-06-29 15:25] VITALS: BMI 25.5
[2024-06-29] MEDS: Rivaroxaban 10 MG Tablet PO (16:56)
[2024-06-29] MEDS: Clotrimazole/Betamethasone 1 Tube 1 APPLIC TOPICAL (21:46)
[2024-06-29] MEDS: Magnesium Chloride 64 MG Delay Rel.Tablet 128 MG PO (21:49)
[2024-06-29] MEDS: Zolpidem Tartrate 5 MG Tablet 10 MG PO (21:54)
[2024-06-29] MEDS: cycloBENZAPRine HCl 10 MG Tablet PO (21:55)
[2024-06-29] MEDS: oxyCODONE 5 MG Tablet PO (21:55)
[2024-06-29 22:00] VITALS: PULSE 78; RESP 18; O2SAT 93
[2024-06-30] MEDS: Acetaminophen 500 MG Tablet 1000 MG PO ×3 (06:19→22:24)
[2024-06-30 06:47] VITALS: PULSE 72; RESP 18; O2SAT 94
[2024-06-30] MEDS: Albuterol IH (6.7 GM) 1 PUFF INHALER INHALATION ×2 (10:45→22:24)
[2024-06-30] MEDS: Clotrimazole/Betamethasone 1 Tube 1 APPLIC TOPICAL (10:45)
[2024-06-30] MEDS: Fluconazole 100 MG Tablet PO (10:46)
[2024-06-30] MEDS: Calcium (Elemental) 500 MG Tablet PO (10:46)
[2024-06-30] MEDS: Multivitamins,Ther W-Minerals Tablet 1 TABLET PO (10:46)
[2024-06-30] MEDS: Hydroxyurea 500 MG Capsule 1500 MG PO (10:47)
[2024-06-30 10:48] VITALS: BP 113/75; PULSE 83
[2024-06-30] MEDS: Pantoprazole Sodium 40 MG Tablet PO (10:48)
[2024-06-30] MEDS: Escitalopram Oxalate 10 MG Tablet PO (10:48)
[2024-06-30] MEDS: Metoprolol(XL)Succ 100 MG Tablet PO (10:48)
[2024-06-30] MEDS: Calcitriol 0.25 MCG Capsule PO (10:48)
[2024-06-30] MEDS: Ascorbic Acid 500 MG Tablet 2000 MG PO (10:49)
[2024-06-30] MEDS: Ferrous Sulfate 325 MG Tablet PO (10:59)
[2024-06-30 11:12] VITALS: BP 113/75; PULSE 83; RESP 18; TEMP 36.2; O2SAT 96
[2024-06-30] MEDS: 0.9% Saline Lock 10 ML Syringe IV ×2 (13:11→22:46)
[2024-06-30] MEDS: Rivaroxaban 10 MG Tablet PO (17:26)
[2024-06-30] MEDS: Nystatin Powder 15gm Bottle 1 APPLIC TOPICAL (22:23)
[2024-06-30] MEDS: Magnesium Chloride 64 MG Delay Rel.Tablet 128 MG PO (22:24)
[2024-06-30] MEDS: guaiFENesin 10 ML UDC (200MG/10ML) PO (22:29)
[2024-06-30] MEDS: Zolpidem Tartrate 5 MG Tablet 10 MG PO (22:29)
[2024-07-01] MEDS: Acetaminophen 500 MG Tablet 1000 MG PO ×3 (05:37→22:24)
--- NOTE | 2024-07-01 09:23 | CASEMGMT ---
Addendum entered by Janie Robb 07/01/24 13:40: Dtr phoned this worker inquiring about MC coverage at [facility]. SW educated that pt will be cut from skilled services on TCU, and would admit to the next SNF intermediate care, thus it would be OOP. SW offered to make referral to [facility] to inquire about availability. Dtr agreed. SW sent to review for SNF and AL via [facility]. Addendum entered by Janie Robb 07/01/24 11:19: Received return call from dtr. SW inquired about DC planning, as pt is having difficulty with endurance and strength on flight of steps, which he needs to do to return home. Inquired about a stair lift. Dtr stated they have not considered a stair lift, but have been asked about it. The dtr explained she was considering AL after TCU, continue building strength and endurance for steps, and if he could complete the steps, to return home or remain in AL or go to SNF LTP, likely at [facility] as pt's palliative care nurse works at [facility]. SW educated to OOP cost for AL and SNF, and since Medicare will be done with coverage, pt will receive the same, decreased amount of therapy at home, AL or SNF. Dtr expressed understanding and stated she has been working with an elder law collections attorney to assist with protecting assets and planning for [facility]. SW educated to AL not accepting [facility]. Dtr unclear with [facility] acceptance as her collections attorney explained something different, but will clarify with collections attorney if that is the route. Regardless, the pt can pay privately initially and can start in AL. SW agreed AL would be appropriate for pt, if they do not elect home at DC. SW suggested speaking with pt on plans, offered to attend therapy training to see how pt does with steps, prior to making a decision. Team discusses pt's progress 07/06 and will goal is to set a DC date for the week of July 12. Dtr expressed understanding agreeable to therapy training this weekend n 07/03. SW to update therapy and coordinate scheduling. Dtr appreciative. SW will continue to follow. Notified therapy. Original Note: Social Work SW left VM with dtr to discuss steps and DC planning. Janie Robb HAT AND CAP OPENER REGIONAL SALES REPRESENTATIVE
[2024-07-01 09:49] VITALS: BP 123/70; PULSE 78; RESP 16; TEMP 36.2; O2SAT 95
[2024-07-01] MEDS: Hydroxyurea 500 MG Capsule 1500 MG PO (09:52)
[2024-07-01] MEDS: Albuterol IH (6.7 GM) 1 PUFF INHALER INHALATION ×2 (09:52→22:26)
[2024-07-01] MEDS: Calcium (Elemental) 500 MG Tablet PO (09:52)
[2024-07-01] MEDS: Ascorbic Acid 500 MG Tablet 2000 MG PO (09:52)
[2024-07-01] MEDS: Clotrimazole/Betamethasone 1 Tube 1 APPLIC TOPICAL ×2 (09:52→22:26)
[2024-07-01] MEDS: Multivitamins,Ther W-Minerals Tablet 1 TABLET PO (09:52)
[2024-07-01 09:53] VITALS: PULSE 78
[2024-07-01] MEDS: Metoprolol(XL)Succ 100 MG Tablet PO (09:53)
[2024-07-01] MEDS: Calcitriol 0.25 MCG Capsule PO (09:53)
[2024-07-01] MEDS: Pantoprazole Sodium 40 MG Tablet PO (09:53)
[2024-07-01] MEDS: Escitalopram Oxalate 10 MG Tablet PO (09:53)
[2024-07-01] MEDS: 0.9% Saline Lock 10 ML Syringe IV ×2 (09:55→22:24)
[2024-07-01] MEDS: oxyCODONE 5 MG Tablet PO ×3 (09:57→22:24)
[2024-07-01] MEDS: guaiFENesin 10 ML UDC (200MG/10ML) PO (09:57)
[2024-07-01] MEDS: Ferrous Sulfate 325 MG Tablet PO (14:36)
[2024-07-01] MEDS: Rivaroxaban 10 MG Tablet PO (17:51)
[2024-07-01] MEDS: Zolpidem Tartrate 5 MG Tablet 10 MG PO (22:23)
[2024-07-01] MEDS: Magnesium Chloride 64 MG Delay Rel.Tablet 128 MG PO (22:25)
[2024-07-01] MEDS: Nystatin Powder 15gm Bottle 1 APPLIC TOPICAL (22:26)
[2024-07-02 06:25] VITALS: O2SAT 96
[2024-07-02] MEDS: Acetaminophen 500 MG Tablet 1000 MG PO ×3 (06:34→22:06)
[2024-07-02] MEDS: guaiFENesin 10 ML UDC (200MG/10ML) PO ×2 (06:37→13:49)
[2024-07-02 07:10] LABS: Absolute Lymphocyte Count 19.69 X10^3/uL (0.83-4.51); Absolute Neutrophil Count 2.6 X10^3/uL (2.0-7.7); Basophil# 0.04 X10^3/uL; Basophil% 0.1 % (0-1); Eosinophil# 0.05 X10^3/uL; Eosinophils% 0.2 % (0-5); Hematocrit 31.1 % (40-54); Hemoglobin 10.2 g/dL (13.0-16.5); Lymphocyte # 19.69 X10^3/ul (0.83-4.51); Lymphocyte % 63.1 % (19-41); Mean Corp Hgb Conc 32.8 g/dL (32-36); Mean Corpuscular Hgb 39.2 pg (27.0-32.0); Mean Corpuscular Volume 119.6 fL (80-94); Mean Platelet Vol. 9.8 fl (6.2-12.0); Monocyte% 27.9 % (0-10); NRBC Flagged by Analyzer 0.3 % (0-5); Neutrophil % 8.3 % (47-70); POSITIVE COUNT YES; POSITIVE DIFFERENTIAL YES; POSITIVE MORPHOLOGY YES; Platelet Count 194 K/mm3 (150-450)
[2024-07-02 07:14] LABS: White Blood Count 31.2 K/mm3 (4.4-11.0)
[2024-07-02 07:31] LABS: Anion Gap 14 (5-15); BUN 44 mg/dL (4-19); BUN/Creat Ratio 28.5 RATIO (10-20); Calcium,Total 9.9 mg/dL (7.6-11.0); Carbon Dioxide 21.1 mmol/L (21.0-32.0); Chloride 105 mmol/L (98-108); Creatinine, Serum 1.55 mg/dL (0.70-1.20); EST Glomerular Filtration Rate 48 (>60); Estimated Creatinine Clearance 44.35 ml/min (50-250); Glucose 85 mg/dL (70-99); Potassium 5.1 mmol/L (3.3-5.1); Sodium Level 139 mmol/L (133-145)
[2024-07-02 09:15] LABS: Blast 2 % (0-0); Lymphocyte 95 % (19-41); Monocyte 1 % (0-10); Neutrophil-Segmented 2 % (47-70); Total Cells Counted 100 (MANUAL DIFF)
[2024-07-02 09:17] LABS: Anisocytosis 2+; Polychromasia 1+
[2024-07-02 09:18] LABS: Atypical Lymphocyte 1+ %; Pathologist Review May foll; Platelet Estimate A (ADEQ)
[2024-07-02] MEDS: 0.9% Saline Lock 10 ML Syringe IV (09:47)
[2024-07-02] MEDS: Clotrimazole/Betamethasone 1 Tube 1 APPLIC TOPICAL (09:49)
[2024-07-02 09:50] VITALS: PULSE 85
[2024-07-02] MEDS: Albuterol IH (6.7 GM) 1 PUFF INHALER INHALATION ×2 (09:50→22:06)
[2024-07-02] MEDS: Metoprolol(XL)Succ 100 MG Tablet PO (09:50)
[2024-07-02] MEDS: Calcium (Elemental) 500 MG Tablet PO (09:50)
[2024-07-02] MEDS: Pantoprazole Sodium 40 MG Tablet PO (09:50)
[2024-07-02] MEDS: Ascorbic Acid 500 MG Tablet 2000 MG PO (09:50)
[2024-07-02] MEDS: Escitalopram Oxalate 10 MG Tablet PO (09:51)
[2024-07-02] MEDS: Multivitamins,Ther W-Minerals Tablet 1 TABLET PO (09:51)
[2024-07-02] MEDS: Hydroxyurea 500 MG Capsule 1500 MG PO (09:51)
[2024-07-02] MEDS: Calcitriol 0.25 MCG Capsule PO (09:51)
[2024-07-02] MEDS: oxyCODONE 5 MG Tablet PO (09:54)
[2024-07-02] MEDS: Nystatin Powder 15gm Bottle 1 APPLIC TOPICAL ×2 (09:56→22:06)
[2024-07-02 09:59] VITALS: BP 115/65; PULSE 85; RESP 16; TEMP 36.2; O2SAT 97
[2024-07-02] MEDS: Ferrous Sulfate 325 MG Tablet PO (13:44)
[2024-07-02 14:53] VITALS: PULSE 85; RESP 16; O2SAT 92
--- NOTE | 2024-07-02 16:21 | CASEMGMT ---
Social Work [facility] can accept for their SNF, not AL given pt will need Medicaid in the future. Janie Robb SKIMMER AUDIO VISUAL PRODUCTION SPECIALIST
[2024-07-02] MEDS: Rivaroxaban 10 MG Tablet PO (16:33)
[2024-07-02] MEDS: Zolpidem Tartrate 5 MG Tablet 10 MG PO (22:06)
[2024-07-02] MEDS: Magnesium Chloride 64 MG Delay Rel.Tablet 128 MG PO (22:06)
[2024-07-03] MEDS: Acetaminophen 500 MG Tablet 1000 MG PO ×3 (06:32→22:52)
[2024-07-03] MEDS: Albuterol IH (6.7 GM) 1 PUFF INHALER INHALATION ×2 (10:24→22:54)
[2024-07-03] MEDS: Clotrimazole/Betamethasone 1 Tube 1 APPLIC TOPICAL (10:24)
[2024-07-03 10:25] VITALS: PULSE 87
[2024-07-03] MEDS: Multivitamins,Ther W-Minerals Tablet 1 TABLET PO (10:25)
[2024-07-03] MEDS: Calcium (Elemental) 500 MG Tablet PO (10:25)
[2024-07-03] MEDS: Hydroxyurea 500 MG Capsule 1500 MG PO (10:25)
[2024-07-03] MEDS: Calcitriol 0.25 MCG Capsule PO (10:25)
[2024-07-03] MEDS: Escitalopram Oxalate 10 MG Tablet PO (10:25)
[2024-07-03] MEDS: Metoprolol(XL)Succ 100 MG Tablet PO (10:25)
[2024-07-03] MEDS: Pantoprazole Sodium 40 MG Tablet PO (10:25)
[2024-07-03] MEDS: Ascorbic Acid 500 MG Tablet 2000 MG PO (10:26)
[2024-07-03 11:17] VITALS: BP 118/77; PULSE 87; RESP 17; TEMP 36.2; O2SAT 95
[2024-07-03] MEDS: Ondansetron 8 MG Tablet PO (12:26)
[2024-07-03] MEDS: Ferrous Sulfate 325 MG Tablet PO (13:42)
[2024-07-03] MEDS: Rivaroxaban 10 MG Tablet PO (17:44)
[2024-07-03 20:00] VITALS: PULSE 84; RESP 16; O2SAT 95
[2024-07-03] MEDS: Magnesium Chloride 64 MG Delay Rel.Tablet 128 MG PO (22:51)
[2024-07-03] MEDS: Nystatin Powder 15gm Bottle 1 APPLIC TOPICAL (22:53)
[2024-07-03] MEDS: 0.9% Saline Lock 10 ML Syringe IV (22:54)
[2024-07-03] MEDS: cycloBENZAPRine HCl 10 MG Tablet PO (23:02)
[2024-07-03] MEDS: Zolpidem Tartrate 5 MG Tablet 10 MG PO (23:02)
[2024-07-03] MEDS: oxyCODONE 5 MG Tablet PO (23:03)
[2024-07-03] MEDS: guaiFENesin 10 ML UDC (200MG/10ML) PO (23:03)
[2024-07-04] MEDS: Acetaminophen 500 MG Tablet 1000 MG PO ×3 (06:22→22:21)
[2024-07-04 06:45] VITALS: PULSE 88; RESP 16; O2SAT 94
[2024-07-04] MEDS: Calcium (Elemental) 500 MG Tablet PO (10:00)
[2024-07-04] MEDS: Escitalopram Oxalate 10 MG Tablet PO (10:00)
[2024-07-04] MEDS: Multivitamins,Ther W-Minerals Tablet 1 TABLET PO (10:00)
[2024-07-04] MEDS: Pantoprazole Sodium 40 MG Tablet PO (10:00)
[2024-07-04] MEDS: Clotrimazole/Betamethasone 1 Tube 1 APPLIC TOPICAL (10:00)
[2024-07-04 10:01] VITALS: PULSE 84
[2024-07-04] MEDS: Metoprolol(XL)Succ 100 MG Tablet PO (10:01)
[2024-07-04] MEDS: Albuterol IH (6.7 GM) 1 PUFF INHALER INHALATION ×2 (10:01→22:31)
[2024-07-04] MEDS: Ascorbic Acid 500 MG Tablet 2000 MG PO (10:01)
[2024-07-04] MEDS: Calcitriol 0.25 MCG Capsule PO (10:01)
[2024-07-04 10:40] VITALS: BP 109/70; PULSE 84; RESP 18; TEMP 36.2; O2SAT 96
[2024-07-04] MEDS: Ferrous Sulfate 325 MG Tablet PO (13:04)
[2024-07-04] MEDS: 0.9% Saline Lock 10 ML Syringe IV ×2 (13:05→22:19)
[2024-07-04] MEDS: Rivaroxaban 10 MG Tablet PO (17:24)
[2024-07-04] MEDS: Magnesium Chloride 64 MG Delay Rel.Tablet 128 MG PO (22:22)
[2024-07-04] MEDS: Nystatin Powder 15gm Bottle 1 APPLIC TOPICAL (22:25)
[2024-07-04] MEDS: Zolpidem Tartrate 5 MG Tablet 10 MG PO (22:32)
[2024-07-04] MEDS: guaiFENesin 10 ML UDC (200MG/10ML) PO (22:32)
[2024-07-04] MEDS: cycloBENZAPRine HCl 10 MG Tablet PO (22:32)
[2024-07-04] MEDS: oxyCODONE 5 MG Tablet PO (22:33)
[2024-07-05] MEDS: Acetaminophen 500 MG Tablet 1000 MG PO ×3 (06:18→21:37)
--- NOTE | 2024-07-05 09:49 | NURSING ---
Addendum entered by Ira Bryant 07/05/24 09:57: Dr Mcdonnell returned call, IV merrem is not intermodal dispatcher option, pt could then develop resistance. He stated he will review pts chart. will update pt on his request being denied at this time. Original Note: dr mcdonnell paged regarding pt requesting IV merrem prophylactically for pseudomonas in lungs, awaiting return call.
[2024-07-05 10:02] VITALS: BP 114/70; PULSE 84; RESP 16; TEMP 36.1; O2SAT 92
[2024-07-05] MEDS: Multivitamins,Ther W-Minerals Tablet 1 TABLET PO (10:03)
[2024-07-05] MEDS: Calcium (Elemental) 500 MG Tablet PO (10:03)
[2024-07-05] MEDS: Pantoprazole Sodium 40 MG Tablet PO (10:04)
[2024-07-05] MEDS: Escitalopram Oxalate 10 MG Tablet PO (10:04)
[2024-07-05] MEDS: Hydroxyurea 500 MG Capsule 1500 MG PO (10:04)
[2024-07-05] MEDS: Calcitriol 0.25 MCG Capsule PO (10:04)
[2024-07-05 10:05] VITALS: PULSE 84
[2024-07-05] MEDS: Albuterol IH (6.7 GM) 1 PUFF INHALER INHALATION (10:05)
[2024-07-05] MEDS: Nystatin Powder 15gm Bottle 1 APPLIC TOPICAL (10:05)
[2024-07-05] MEDS: Ascorbic Acid 500 MG Tablet 2000 MG PO (10:05)
[2024-07-05] MEDS: Metoprolol(XL)Succ 100 MG Tablet PO (10:05)
[2024-07-05] MEDS: 0.9% Saline Lock 10 ML Syringe IV ×2 (10:19→21:51)
[2024-07-05] MEDS: Clotrimazole/Betamethasone 1 Tube 1 APPLIC TOPICAL ×2 (10:19→21:39)
[2024-07-05] MEDS: Ferrous Sulfate 325 MG Tablet PO (13:24)
[2024-07-05] MEDS: oxyCODONE 5 MG Tablet PO ×3 (13:28→21:37)
[2024-07-05] MEDS: Rivaroxaban 10 MG Tablet PO (16:51)
[2024-07-05] MEDS: guaiFENesin 10 ML UDC (200MG/10ML) PO ×2 (16:54→21:36)
[2024-07-05] MEDS: cycloBENZAPRine HCl 10 MG Tablet PO (21:36)
[2024-07-05] MEDS: Zolpidem Tartrate 5 MG Tablet 10 MG PO (21:36)
[2024-07-05] MEDS: Magnesium Chloride 64 MG Delay Rel.Tablet 128 MG PO (21:37)
[2024-07-05 21:55] VITALS: PULSE 84; RESP 16; O2SAT 96
[2024-07-06] MEDS: guaiFENesin 10 ML UDC (200MG/10ML) PO (06:13)
[2024-07-06] MEDS: Acetaminophen 500 MG Tablet 1000 MG PO ×3 (06:13→21:27)
[2024-07-06] MEDS: Albuterol IH (6.7 GM) 1 PUFF INHALER INHALATION ×2 (09:54→21:26)
[2024-07-06] MEDS: Nystatin Powder 15gm Bottle 1 APPLIC TOPICAL (09:55)
[2024-07-06] MEDS: Hydroxyurea 500 MG Capsule 1500 MG PO (09:56)
[2024-07-06] MEDS: Multivitamins,Ther W-Minerals Tablet 1 TABLET PO (09:56)
[2024-07-06] MEDS: Calcium (Elemental) 500 MG Tablet PO (09:56)
[2024-07-06] MEDS: Escitalopram Oxalate 10 MG Tablet PO (09:57)
[2024-07-06] MEDS: Pantoprazole Sodium 40 MG Tablet PO (09:57)
[2024-07-06 09:58] VITALS: BP 102/66; PULSE 96
[2024-07-06] MEDS: Metoprolol(XL)Succ 100 MG Tablet PO (09:58)
[2024-07-06] MEDS: Calcitriol 0.25 MCG Capsule PO (09:58)
[2024-07-06] MEDS: Ascorbic Acid 500 MG Tablet 2000 MG PO (09:58)
[2024-07-06 10:05] VITALS: BP 102/66; PULSE 96; RESP 18; TEMP 36.9; O2SAT 93
[2024-07-06] MEDS: Ferrous Sulfate 325 MG Tablet PO (11:14)
[2024-07-06] MEDS: 0.9% Saline Lock 10 ML Syringe IV (11:17)
[2024-07-06 11:49] VITALS: BMI 25.3
--- NOTE | 2024-07-06 14:22 | CASEMGMT ---
Addendum entered by Janie Robb 07/06/24 15:20: Received return call from dtr. SW updated dtr that pt completed flight of steps without a seated rest break this date, which shows ongoing improvement. Informed dtr that [facility] SN[facility] can accept, but not AL d/t needing Medicaid. Dtr unsure which DC plan to pursue. Dtr acknowledged pt does want to come home, but dtr expressed not wanting to campos it. SW validated. Dtr requested to sleep on it and to notify this worker tomorrow of decision. Dtr did state she is already off work for pt's appt on 07/15 and prefers DC be that date. SW agreed. Will continue to follow to finalize DC plans. Original Note: Social Work SW left with dtr to follow up and set DC date. Janie Robb TENDER COORDINATOR LANDING MAN
[2024-07-06] MEDS: Ondansetron 8 MG Tablet PO (15:44)
[2024-07-06] MEDS: Rivaroxaban 10 MG Tablet PO (17:27)
[2024-07-06] MEDS: Magnesium Chloride 64 MG Delay Rel.Tablet 128 MG PO (21:27)
[2024-07-06] MEDS: Clotrimazole/Betamethasone 1 Tube 1 APPLIC TOPICAL (21:27)
[2024-07-06] MEDS: Zolpidem Tartrate 5 MG Tablet 10 MG PO (21:31)
[2024-07-06] MEDS: cycloBENZAPRine HCl 10 MG Tablet PO (21:32)
[2024-07-06] MEDS: oxyCODONE 5 MG Tablet PO (21:32)
[2024-07-07] MEDS: Acetaminophen 500 MG Tablet 1000 MG PO ×3 (06:35→22:36)
[2024-07-07] MEDS: Clotrimazole/Betamethasone 1 Tube 1 APPLIC TOPICAL (10:03)
[2024-07-07] MEDS: Hydroxyurea 500 MG Capsule 1500 MG PO (10:04)
[2024-07-07] MEDS: Multivitamins,Ther W-Minerals Tablet 1 TABLET PO (10:04)
[2024-07-07] MEDS: Calcium (Elemental) 500 MG Tablet PO (10:04)
[2024-07-07 10:05] VITALS: BP 103/55; PULSE 92
[2024-07-07] MEDS: Calcitriol 0.25 MCG Capsule PO (10:05)
[2024-07-07] MEDS: Pantoprazole Sodium 40 MG Tablet PO (10:05)
[2024-07-07] MEDS: Escitalopram Oxalate 10 MG Tablet PO (10:05)
[2024-07-07] MEDS: Metoprolol(XL)Succ 100 MG Tablet PO (10:05)
[2024-07-07] MEDS: Ascorbic Acid 500 MG Tablet 2000 MG PO (10:06)
[2024-07-07] MEDS: Albuterol IH (6.7 GM) 1 PUFF INHALER INHALATION (10:06)
[2024-07-07 10:12] VITALS: BP 103/55; PULSE 92; RESP 20; TEMP 36.8; O2SAT 95
[2024-07-07] MEDS: Ferrous Sulfate 325 MG Tablet PO (11:51)
[2024-07-07] MEDS: Ondansetron 8 MG Tablet PO (13:17)
[2024-07-07 14:40] VITALS: PULSE 83; RESP 18; O2SAT 94
--- NOTE | 2024-07-07 15:41 | CASEMGMT ---
Addendum entered by Janie Robb 07/09/24 15:18: Pt needs a second FWW for home. SW sent referral to [employer] via [employer]. Addendum entered by Janie Robb 07/08/24 11:35: SW sent [facility] notification of pt's DC and DC summary. Addendum entered by Janie Robb 07/07/24 15:49: SW notified [facility] via [facility]. Original Note: Social Work SW received call from dtr stating pt/dtr opted for DC home. Dtr agreed to try it. Dtr would prefer HHC first, then OP therapy. SW agreed. SW offered list of skilled HHC agencies within geographical area, INN with insurance, that include quality and resource data via [employer] guide. Dtr denied, agreeable to [facility]. SW educated HHC agency will contact pt for SOC date date, but typically 2-3 days after DC, pending PCP signing orders. Dtr expressed understanding. Dtr requesting DC 07/15, prior to pt's appt. SW agreed. Dtr to transport. - YUMIKO spoke with pt. SW provided [facility] to pt and educated to appeal rights. Pt verbalized understanding and denied appeal. Pt is agreeable to DC, home with [facility]. Denied DME needs. - YUMIKO phoned referral to [facility] for PT/OT/SN/SW. Plan: DC home with dtr 07/15, [facility] PT/OT/SN/SW Janie Robb NURSING UNIT MANAGER PROFESSOR OF VOICE
--- NOTE | 2024-07-07 16:14 | PCM.PN.DRR ---
Documented by User: Delaney Frank 07/07/24 16:39 TCU RX Drug Regimen Review Subjective/Objective Subjective/Objective Subjective: TCU June note. 68 YOM admitted to TCU s/p hospitalization at an outside facility due to a right hip fracture requiring surgical intervention. Patient admitted to TCU 05/26/24 for strengthening and rehabilitation prior to discharge home with his daughter. Objective: Allergies Penicillins Allergy (Verified 05/13/24 14:16) PT UNSURE OF REACTION Occurred in childhood ~ 8 y.o doxycycline Adverse Reaction (Unknown, Verified 05/13/24 14:16) Upset Stomach Current Medications Generic Name Dose Route Start Last Admin Trade Name Freq PRN Reason Stop Dose Admin Acetaminophen 1,000 mg 05/26/24 22:00 07/07/24 13:15 Acetaminophen 500 Mg Tablet PO 1,000 mg Q8 FELICITY Administration Albuterol Sulfate 1 puff 05/26/24 19:51 07/07/24 10:06 Albuterol Ih (6.7 Gm) 1 Puff Inhaler INHALATION 1 puff Q4H PRN Administration shortness of breath or wheezing Ascorbic Acid 2,000 mg 05/27/24 10:00 07/07/24 10:06 Ascorbic Acid 500 Mg Tablet PO 2,000 mg DAILY FELICITY Administration Calcitriol 0.25 mcg 05/27/24 10:00 07/07/24 10:05 Calcitriol 0.25 Mcg Capsule PO 0.25 mcg DAILY FELICITY Administration Calcium Carbonate 500 mg 05/27/24 08:00 07/07/24 10:04 Calcium (Elemental) 500 Mg Tablet PO 500 mg DAILYCM FELICITY Administration Calcium Carbonate 500 mg 05/29/24 17:59 05/29/24 18:59 Calcium Carbonate 500 Mg Tablet PO 500 mg Q6H PRN PRN Administration INDIGESTION Clotrimazole 1 applic 06/20/24 22:00 07/07/24 10:03 Clotrimazole/Betamethasone 1 Tube TOPICAL 1 applic BID FELICITY Administration Protocol Cyclobenzaprine HCl 10 mg 05/26/24 17:12 07/06/24 21:32 Cyclobenzaprine Hcl 10 Mg Tablet PO 10 mg TID PRN Administration muscle spasm Escitalopram Oxalate 10 mg 06/22/24 10:00 07/07/24 10:05 Escitalopram Oxalate 10 Mg Tablet PO 10 mg DAILY FELICITY Administration Ferrous Sulfate 325 mg 05/27/24 12:00 07/07/24 11:51 Ferrous Sulfate 325 Mg Tablet PO 325 mg DAILY@1200 FELICITY Administration Guaifenesin 10 ml 05/30/24 01:32 07/06/24 06:13 Guaifenesin 10 Ml Udc (200mg/10ml) PO 10 ml Q4H PRN PRN Administration CONGESTION Hydroxyurea 1,500 mg 07/08/24 22:00 Hydroxyurea 500 Mg Capsule PO [id number]@1000 FELICITY Sodium Chloride 500 mls @ 0 mls/hr 06/02/24 11:45 IV .Q0M FELICITY KVO Sodium Chloride 100 mls @ 15 mls/hr 06/03/24 22:14 06/29/24 16:23 IV 0 mls/hr .Q6H40M PRN Infusion Saline Flush Sodium Chloride 100 mls @ 15 mls/hr 06/03/24 22:14 06/20/24 14:39 IV Infused .Q6H40M PRN Infusion Additional IVPB Infusion Magnesium Chloride 128 mg 05/26/24 22:00 07/06/24 21:27 Magnesium Chloride 64 Mg Delay Rel.Tablet PO 128 mg QHS FELICITY Administration Magnesium Citrate 300 ml 05/26/24 19:17 Magnesium Citrate 300 Ml PO DAILY PRN Constipation Metoprolol Succinate 100 mg 05/27/24 10:00 07/07/24 10:05 Metoprolol(Xl)Succ 100 Mg Tablet PO 100 mg DAILY FELICITY Administration Protocol Multivitamins/Minerals 1 tablet 05/27/24 08:00 07/07/24 10:04 Multivitamins,Ther W-Minerals Tablet PO 1 tablet BREAKFAST [facility] Administration Nystatin 1 applic 06/18/24 22:00 07/07/24 10:05 Nystatin Powder 15gm Bottle TOPICAL Not Given BID [facility] Protocol Ondansetron HCl 8 mg 05/26/24 17:12 07/07/24 13:17 Ondansetron 8 Mg Tablet PO 8 mg DAILY PRN Administration nausea/vomiting Oxycodone HCl 5 mg 05/26/24 19:17 07/06/24 21:32 Oxycodone 5 Mg Tablet PO 5 mg Q4H PRN PRN Administration Pain Score 1-10 or Pre PT/OT Pantoprazole Sodium 40 mg 05/27/24 10:00 07/07/24 10:05 Pantoprazole Sodium 40 Mg Tablet PO 40 mg DAILY FELICITY Administration Rivaroxaban 10 mg 05/27/24 17:00 07/06/24 17:27 Rivaroxaban 10 Mg Tablet PO 10 mg DINNER FELICITY Administration Fluticasone/Salmeterol 1 puff 05/26/24 22:00 07/07/24 10:04 Fluticasone/Salmeterol 232-14 Inhaler INHALATION Not Given Q12 FELICITY Sodium Chloride 10 - 40 ml 05/26/24 17:47 07/06/24 11:17 0.9% Saline Lock 10 Ml Syringe IV 10 ml UD PRN Administration SALINE FLUSH Umeclidinium [place] 1 puff 05/27/24 10:00 07/07/24 10:04 Umeclidinium [place] Inhaler INHALATION Not Given DAILY FELICITY Zolpidem Tartrate 10 mg 05/26/24 17:12 07/06/24 21:31 Zolpidem Tartrate 5 Mg Tablet PO 10 mg QHS PRN PRN Administration sleep Problem List Left inguinal hernia (Acute) Pneumonia due to Pseudomonas (Acute) Flu (Acute) Pulmonary embolism (Acute) Chronic diarrhea (Chronic) Iron deficiency anemia (Acute) Anxiety (Acute) Closed right hip fracture (Acute) Depression (Acute) Insomnia (Acute) Essential (primary) hypertension (Acute) Hypomagnesemia (Acute) Debility (Acute) AVM (arteriovenous malformation) of colon (Chronic) Chronic GI bleeding (Chronic) CLL (chronic lymphocytic leukemia) (Chronic) COPD (chronic obstructive pulmonary disease) (Chronic) Vital Signs Temp Pulse Resp BP Pulse Ox O2 Del Method 98.3 F 83 18 103/55 L 94 Room Air 07/07/24 10:12 07/07/24 14:40 07/07/24 14:40 07/07/24 10:12 07/07/24 14:40 07/07/24 14:40 Oxygen Delivery Method Room Air Weight: 77.61 kg Body Mass Index (BMI) 25.3 Sodium 139 mmol/L (133-145) 07/02/24 06:21 Potassium 5.1 mmol/L (3.3-5.1) 07/02/24 06:21 Chloride 105 mmol/L (98-108) 07/02/24 06:21 Carbon Dioxide 21.1 mmol/L (21.0-32.0) 07/02/24 06:21 Anion Gap 14 (5-15) 07/02/24 06:21 BUN 44 mg/dL (4-19) H 07/02/24 06:21 Creatinine 1.55 mg/dL (0.70-1.20) H 07/02/24 06:21 Est GFR (MDRD) Af Amer TNP 06/24/24 05:13 Est GFR (MDRD) Non-Af 48 (>60) L 07/02/24 06:21 BUN/Creatinine Ratio 28.5 RATIO (10-20) H 07/02/24 06:21 Glucose 85 mg/dL (70-99) 07/02/24 06:21 Assessment/Plan: 1. Pain: Tylenol 1000mg PO Q8h, Oxycodone 5mg PO Q4h PRN Pain 1-10. In the past week, resident has had 10 doses of oxycodone for pain scores of 3-6 in the right hip/back. Please continue to monitor for increased/decreased S/S pain, PRN medication usage, falls (BEERs), respiratory depression/constipation/oversedation with narcotic usage. 2. DVT/PE: rivaroxaban 10mg PO daily. Please continue to monitor for S/S bleeding/bruising, S/S blood clot formation, hemoglobin (last 10.2g/dL). 3. Hypertension: metoprolol succinate 100mg PO Daily. Please continue to monitor BP (last 103/55), pulse (last 83 BPM). 4. COPD: Airduo inhalation 1 puff Q12h, Incruse 1 puff daily, albuterol inhaler 1 puff Q4h PRN. Resident has been using PRN albuterol. Please continue to monitor for increased SOB, HR (last 83), proper inhaler usage techniques, S/S developing thrush infection and PRN usage. Please rinse mouth with water and spit following AirDuo administration to prevent thrush. 5. Thrombocythemia: hydroxyurea 1500mg Mo-Sa. Please continue to monitor for headache, infection development, neutropenia, anemia, platelets (last 194,000). 6. Secondary Hyperparathyroidism: calcitriol 0.25mg PO Daily. Please continue to monitor calcium levels (last 9.9mg/dL). 7. Muscle Spasm: cyclobenzaprine 10mg PO TID PRN. Resident is taking regularly, last dose 07/06/24. Please continue to monitor for PRN medication usage, drowsiness, dizziness. This is a Beer's Criteria medication which can increase the risk of falls in patients >65 years of age. Please evaluate risk v. benefit of use, especially since pt fell and had a hip fracture. 8. GERD: pantoprazole 40mg PO daily and calcium carbonate 500mg PO Q6H PRN indigestion. Please continue to monitor for PRN usage, calcium, abdominal pain, gas, headache, diarrhea (BEERs). Please also encourage nonpharmacologic treatments to help minimize GERD flareups, also. 9. Nausea: Zofran 8mg PO daily PRN nausea/vomiting. Last dose today. Please continue to monitor for headache, medication effectiveness, PRN medication usage. 10. General Wellness: calcium 500mg PO daily, MVI with minerals 1 tab PO daily, magnesium chloride 128mg PO Daily. Please continue to monitor magnesium (last 01/22/24). 11. Bowel: senna/docusate 2 tab PO BID, Magnesium Citrate 300mL PO Daily PRN constipation. No PRN usage. Please continue to monitor for S/S constipation and/or diarrhea. Last documented bowel movement was 07/06/24. 12. Iron deficiency anemia: ferrous sulfate 325mg PO daily and ascorbic acid 2000mg PO daily. Please continue to monitor hemoglobin, dark stools, constipation and iron studies (last 05/13/24). 13. Tinea cruris: Nystatin powder topical bid, Lotrisone cream topical bid. Please continue to monitor. 14. Cough: Robitussin 10ML q4 prn congestion. Please continue to monitor for PRN usage and congestion. Assessment/Plan for indications treated with psychotropic medications: 1. Depression: escitalopram 10mg PO daily. Please see previous note regarding GDR, dose increased. This is a Beer's Criteria medication which can increase the risk of falls in patients >65 years of age. Please evaluate use given pt history of falls resulting in fractures. Please continue to monitor sodium (last 139mmol/L) and suicidal ideation (black box warning). 2. Insomnia: zolpidem 10mg PO QHS PRN. This medication can cause oversedation resulting in falls (BEERs), which patient is at high risk of. Please see previous note regarding GDR. Resident is taking almost nightly. Please continue to monitor for complex sleep-related behaviors (such as eating while sleeping, black box warning) and dementia/delirium (BEERs). Medical chart and medication regimen reviewed. The following medication irregularities or issues were identified: None Date Date of Note: 07/07/24 Documented by User: Dr. Leighton Orozco MD 07/07/24 17:31 TCU RX Drug Regimen Review Provider Comments Provider responsibility Provider Comments to Recommendations by Pharmacy Agree
[2024-07-07] MEDS: Rivaroxaban 10 MG Tablet PO (17:27)
--- NOTE | 2024-07-07 18:11 | NURSING ---
PT REQUESTED HIS HYDROXYUREA BE CHANGED TO 2200 DUE TO PT STATED IT MAKES HIM NAUSEATED AND WORKS BETTER FOR HIM IN THE EVENINGS. MESSAGE SENT TO PHARMACY.
--- NOTE | 2024-07-07 19:42 | DS.PCM_ITS ---
Providers Date of Admission: 05/26/24 Primary Care Physician: Dr. Leighton Orozco MD Consultations 06/01/24 07:29 Consult: Gastroenterology Routine Consulting Provider: [facility] Reason for Consult: Anemia, +hemoccult. EMERGENT Consult: No Notified: Yes Date Notified: 06/01/24 Time Notified: 07:43 Method of Notification: Text 06/03/24 07:16 Consult: Infectious Disease Routine Consulting Provider: Gregg Mcdonnell Reason for Consult: PsA pneumonia (PCN, Doxy allergy), drug interactions. EMERGENT Consult: No Notified: Yes Date Notified: 06/03/24 Time Notified: 07:16 Method of Notification: Text 06/03/24 07:19 Consult: General Surgery Routine Consulting Provider: Ye Macias Reason for Consult: Left inguinal hernia. EMERGENT Consult: No Notified: Yes Date Notified: 06/03/24 Time Notified: 07:58 Method of Notification: Text Reason For Visit: RIGHT HIP FX Diagnosis Discharge Diagnosis (1) Debility: Status: Acute Code(s): R53.81 - Other malaise (2) Closed right hip fracture: Status: Acute Code(s): S72.001A - Fracture of unspecified part of neck of right femur, initial encounter for closed fracture (3) CLL (chronic lymphocytic leukemia): Status: Chronic Code(s): C91.10 - Chronic lymphocytic leukemia of B-cell type not having achieved remission (4) PAOD (peripheral arterial occlusive disease): Status: Resolved Code(s): I77.9 - Disorder of arteries and arterioles, unspecified (5) COPD (chronic obstructive pulmonary disease): Status: Chronic Code(s): J44.9 - Chronic obstructive pulmonary disease, unspecified (6) Anxiety: Status: Acute Code(s): F41.9 - Anxiety disorder, unspecified (7) Iron deficiency anemia: Status: Acute Code(s): D50.9 - Iron deficiency anemia, unspecified (8) Chronic diarrhea: Status: Chronic Code(s): K52.9 - Noninfective gastroenteritis and colitis, unspecified (9) Depression: Status: Acute Code(s): F32.A - Depression, unspecified Qualifiers: Depression Type: unspecified Qualified Code(s): F32.A - Depression, unspecified (10) Hypomagnesemia: Status: Acute Code(s): E83.42 - Hypomagnesemia (11) Essential (primary) hypertension: Status: Acute Code(s): I10 - Essential (primary) hypertension (12) Insomnia: Status: Acute Code(s): G47.00 - Insomnia, unspecified Plan 68 year old male with below past medical history hospitalized for right hip fracture, underwent right hip cephalomedullary nail fixation 05/24/[address] Romero, postoperative course complicated by acute blood loss anemia requiring 1 unit PRBC transfusion, admitted to TCU with debility, here for rehabilitation, strengthening, prior to discharge home with daughter. * Debility - PT/OT. * Dysphagia- ST. * Pain - Tylenol 1000mg q8, Oxycodone 5mg q4 prn pain (1-10). * Bowel - Magnesium citrate 300mL daily prn. * Adult immunization - Administer pneumonia vaccine, covid vaccine, flu vaccine as appropriate. * DVT prophylaxis - Xarelto 10mg daily. * Pseudomonas aeruginosa bronchitis - Meropenem 1gm iv 12 thru 06/29/2024. * Cough - Robitussin 10ML q4 prn. * COPD - Fluticasone/Salmeterol 232-21 1 puff bid, Incruse 1 puff daily, Albuterol 1 puff q4 prn. * Iron deficiency anemia - Ferrous sulfate 325m daily, Vitamin C 2000mg daily. * Secondary hyperparathyroidism - Calcitriol 0.25mg daily. * Calcium deficiency - Calcium 600mg daily. * Muscle spasm - Flexeril 10mg tid prn. * Depression - Lexapro 5mg daily, increase to 10mg daily for depression. * Thrombocythemia - Hydrea 1500mg 6 days/week. * Hypomagnesemia - Magnesium chloride 128mg qhs. * Hypertension - Metoprolol succinate 100mg daily. * Nutrition - MVI 1 tablet daily. * Nausea - Zofran 8mg daily prn. * GERD - Pantoprazole 40mg daily, Calcium 500mg daily. * DVT/PE - Xarelto 10mg daily. * Insomnia - Zolpidem 10mg qhs prn, stable chronic skilled nursing use, GDR not recommended. * Tinea cruris - Nystatin powder topical bid, Lotrisone cream topical bid, Fluconazole 100mg daily thru 06/25/2024. Medications at Discharge Home Medications albuterol sulfate 90 mcg/actuation aerosol inhaler 1 inh inhalation Q4H PRN shortness of breath or wheezing 12/26/22 omeprazole 40 mg capsule,delayed release 40 mg PO DAILY GERD 12/26/22 zolpidem 5 mg tablet 10 mg PO QHS PRN PRN sleep 12/26/22 evolocumab 140 mg/mL subcutaneous pen injector (Repatha SureClick) 140 mg subcut QMONTH [facility] 08/19/23 rivaroxaban 20 mg tablet (Xarelto) 10 mg PO DAILY Blood Thinner 10/07/23 hydroxyurea 500 mg capsule 1,500 mg PO MOTUWETHFRSA Chemo 12/17/23 ferrous sulfate 325 mg (65 mg iron) tablet (Feosol) 325 mg PO DAILY SUPPLEMENT 01/22/24 calcium carbonate (Calcium 600) 600 mg PO DAILY Supplement 02/03/24 ascorbic acid (vitamin C) 500 mg tablet 2 g PO DAILY Supplement 03/17/24 cyclobenzaprine 10 mg tablet 10 mg PO TID PRN muscle spasm 03/17/24 cholecalciferol (vitamin D3) 50 mcg (2,000 unit) capsule (Vitamin D3) 400 unit PO DAILY Nutrition 04/06/24 magnesium oxide 800 mg PO QHS Supplement 05/05/24 metoprolol succinate 100 mg tablet,extended release 24 hr 100 mg PO DAILY BP #90 tabs 05/05/24 lactobacillus combination no.4 3 billion cell capsule (Probiotic) 3,000 mmu cells PO QDAY 05/13/24 budesonide 160 mcg-glycopyr 9 mcg-formot 4.8 mcg/actuation HFA inhaler (Breztri Aerosphere) 2 inh inhalation BID COPD 05/26/24 calcitriol 0.25 mcg capsule 0.25 mcg PO DAILY Supplement 05/26/24 multivitamin with minerals 1 cap PO DAILY Supplement 05/26/24 acetaminophen 500 mg tablet 1,000 mg (2 x 500 mg) PO Q8 #0 tabs 07/07/24 escitalopram oxalate 10 mg tablet 10 mg PO DAILY 30 days #30 tabs 07/07/24 oxycodone 5 mg tablet 5 mg PO Q4H PRN PRN Pain Score 1-10 Or Pre Pt/Ot 7 days #42 tabs 07/07/24 Hospital Course Operations - (See below.) Procedures None Summary of Care Provided Minutes Spent on Discharge: 35 Hospital Course: 68 year old male with below past medical history hospitalized for right hip fracture, underwent right hip cephalomedullary nail fixation 05/24/[address] Romero, postoperative course complicated by acute blood loss anemia requiring 1 unit PRBC transfusion, admitted to TCU with debility, here for rehabilitation, strengthening, prior to discharge home with daughter. Resident treated for PsA pneumonia/bronchitis with Meropenem iv x 2 courses. Resident has left inguinal hernia which will need repair with Dr. Macias once he is recovered. Discharge home with daughter 07/15/2024, [facility] PT/OT/SN/SW. Physical Exam Const alert General Appearance: cooperative HEENT normocephalic Eyes PERRL and EOMs intact bilaterally Neck supple, no JVD and no carotid bruits Resp normal respiratory effort, normal air movement and clear to auscultation bilaterally Cardio regular rate and regular rhythm GI normal to inspection, nondistended, normoactive bowel sounds, non-tender and non-distended Extremity normal capillary refill General Extremity: Negative for edema Skin no rashes or lesions noted General Skin Exam: no breakdown Psych affect normal Appearance: appropriate Weight / BMI Weight Weight: 77.61 kg Body Mass Index (BMI) 25.3 ABG / Lab / Microbiology Data 07/02/24 06:21 07/02/24 06:21 Microbiology: Microbiology 06/15/24 17:05 Sputum, Expectorated/Coughed Gram Stain - Final 06/15/24 17:05 Sputum, Expectorated/Coughed Respiratory Culture - Final Pseudomonas aeruginosa 06/15/24 17:37 Mucosa - Nasopharyngeal Respiratory Panel (PCR) - Final Rhinovirus 06/15/24 17:10 Nasal Secretion SARS-CoV-2 Antigen (Rapid) - Final 05/29/24 21:25 Sputum, Expectorated/Coughed Gram Stain - Final 05/29/24 21:25 Sputum, Expectorated/Coughed Respiratory Culture - Final Pseudomonas aeruginosa Pseudomonas aeruginosa#2 06/02/24 05:15 Nasal Secretion SARS-CoV-2 Antigen (Rapid) - Final 05/31/24 09:00 Stool Stool Occult Blood (TODD) - Final Occult Blood Positive 05/29/24 20:30 Mucosa - Nasopharyngeal Respiratory Panel (PCR) - Final Influenza A (Subtype H3) Rhinovirus 05/29/24 20:47 Nasal Secretion SARS-CoV-2 Antigen (Rapid) - Final D/C Instructions Discharge Diet: No restrictions Discharge Activity: Return to Normal Activity, May Shower and Use Walker Weight Bearing Status: Weight bearing as tolerated Call your doctor if you observe: Fever of 101 or Higher, Inability to urinate, Inability to have a bowel movement, Shortness of breath, Dizziness, Fainting spells, Swelling in the ankles, Chest pain and Uncontrolled pain DC O2, CPAP, BIPAP Needs Home O2 Discharge instructions: No Please Follow Up With: MATT ROMERO DO When: As scheduled. Meaningful Use Info Meaningful Use Meaningful Use Diagnoses (Choose all that apply): None applicable Ischemic Stroke Statin Dosing Therapy Reference: STATIN DOSE THERAPY REFERENCE: * Patients > 75 years receive moderate or high dose statin therapy. * Patients 75 years or YOUNGER should receive HIGH intensity statin dose unless contraindicated. You will be required to document reason for non-treatment if statin daily dose does not meet guidelines. HIGH DOSE STATIN THERAPY DAILY Atorvastatin > than or = to 40 mg Rosuvastatin > than or = to 20 mg Amlodipine + Atorvastatin > than or = to 2.5/40 mg Ezetimibe + Simvastatin 10/80 mg Simvastatin 80mg Discharge Plan Admission Admit Date/Time: 05/26/24 16:25 Primary Reason for Your Visit: Debility. Attending Provider: Leighton Orozco Chi Primary Care Provider: Leighton Orozco Chi Consulting Providers: Gregg Mcdonnell; Ye Macias Instructions Additional Instructions / Restrictions: Discharge home with daughter 07/15/2024, [facility] PT/OT/SN/SW. Discharge Orders/Prescriptions Prescriptions: New acetaminophen 500 mg Tablet 1,000 mg PO Q8 Qty: 0 0RF oxycodone 5 mg Tablet 5 mg PO Q4H PRN PRN (Reason: Pain Score 1-10 Or Pre Pt/Ot) 7 Days Qty: 42 0RF escitalopram oxalate 10 mg Tablet 10 mg PO DAILY 30 Days Qty: 30 0RF Continued ascorbic acid (vitamin C) 500 mg tablet 2 g PO DAILY Xarelto 20 mg tablet 10 mg PO DAILY Rx Instructions: must administer with evening meal hydroxyurea 500 mg capsule 1,500 mg PO MOTUWETHFRSA Rx Instructions: rest on Friday Probiotic 3 billion cell capsule 3,000 mmu cells PO QDAY Rx Instructions: administer with a meal metoprolol succinate 100 mg tablet extended release 24 hr 100 mg PO DAILY Qty: 90 3RF Rx Instructions: Hold for heart less than 50 or systolic blood pressure less than 100 mmHg. albuterol sulfate 90 mcg/actuation HFA aerosol inhaler 1 inh INHALATION Q4H PRN (Reason: shortness of breath or wheezing) omeprazole 40 mg capsule,delayed release(DR/EC) 40 mg PO DAILY Patient Comments: TAKE 1 CAPSULE BY MOUTH ONCE DAILY zolpidem 5 mg tablet 10 mg PO QHS PRN PRN (Reason: sleep) Repatha SureClick 140 mg/mL pen injector 140 mg SUBCUT QMONTH Patient Comments: INJECT 140 MG SUBCUTANEOUSLY ONCE EVERY MONTH ferrous sulfate [Feosol] 325 mg (65 mg iron) tablet 325 mg PO DAILY calcium carbonate [Calcium 600] 600 mg calcium (1,500 mg) tablet 600 mg PO DAILY cholecalciferol (vitamin D3) [Vitamin D3] 50 mcg (2,000 unit) capsule 400 unit PO DAILY magnesium oxide 400 mg magnesium tablet 800 mg PO QHS cyclobenzaprine 10 mg Tablet 10 mg PO TID PRN (Reason: muscle spasm) calcitriol 0.25 mcg capsule 0.25 mcg PO DAILY multivitamin with minerals Capsule 1 cap PO DAILY Breztri Aerosphere 160-9-4.8 mcg/actuation HFA aerosol inhaler 2 inh inhalation BID Discontinued escitalopram oxalate [Lexapro] 5 mg tablet 5 mg PO DAILY Trelegy Ellipta 100-62.5-25 mcg blister with device 1 inh inhalation Q24H psyllium husk [Metamucil] 0.4 gram capsule 0.4 g PO ONCE magnesium aspart,citrate,oxide 400 mg magnesium capsule 400 mg PO QHS acetaminophen 500 mg Tablet 1,000 mg PO BID oxycodone-acetaminophen [Endocet] 5-325 mg tablet 1 tab PO Q4H ondansetron HCl 8 mg tablet 8 mg PO DAILY PRN (Reason: nausea/vomiting) Referrals / Follow Up: Leighton Orozco Chi, MD [Primary Care Provider] - (Patient already has appt scheduled on 07/20. ) Disposition Disposition (needs filled in before D/C Order can be placed): Home Health Service
[2024-07-07] MEDS: Nystatin Powder 15gm Bottle 1 APPLIC TOPICAL (22:34)
[2024-07-07] MEDS: oxyCODONE 5 MG Tablet PO (22:34)
[2024-07-07] MEDS: guaiFENesin 10 ML UDC (200MG/10ML) PO (22:34)
[2024-07-07] MEDS: Magnesium Chloride 64 MG Delay Rel.Tablet 128 MG PO (22:35)
[2024-07-07] MEDS: cycloBENZAPRine HCl 10 MG Tablet PO (22:35)
[2024-07-07] MEDS: Zolpidem Tartrate 5 MG Tablet 10 MG PO (22:35)
[2024-07-08] MEDS: Acetaminophen 500 MG Tablet 1000 MG PO ×3 (06:14→20:00)
[2024-07-08 06:25] VITALS: RESP 16
[2024-07-08 09:34] VITALS: BP 109/65; PULSE 85; RESP 18; TEMP 36.3; O2SAT 93
[2024-07-08] MEDS: Calcium (Elemental) 500 MG Tablet PO (09:41)
[2024-07-08] MEDS: Multivitamins,Ther W-Minerals Tablet 1 TABLET PO (09:41)
[2024-07-08] MEDS: Escitalopram Oxalate 10 MG Tablet PO (09:41)
[2024-07-08] MEDS: Albuterol IH (6.7 GM) 1 PUFF INHALER INHALATION ×2 (09:41→20:01)
[2024-07-08 09:42] VITALS: PULSE 85
[2024-07-08] MEDS: Clotrimazole/Betamethasone 1 Tube 1 APPLIC TOPICAL (09:42)
[2024-07-08] MEDS: Calcitriol 0.25 MCG Capsule PO (09:42)
[2024-07-08] MEDS: Metoprolol(XL)Succ 100 MG Tablet PO (09:42)
[2024-07-08] MEDS: Pantoprazole Sodium 40 MG Tablet PO (09:42)
[2024-07-08] MEDS: Ascorbic Acid 500 MG Tablet 2000 MG PO (09:43)
[2024-07-08] MEDS: Ferrous Sulfate 325 MG Tablet PO (12:51)
--- NOTE | 2024-07-08 15:50 | CHAPLAIN ---
Type of Pastoral Visit ___ Initial Visit _x__ Follow-up Visit ___ On-call Visit ___ General Patient Visit ___ Spiritual Assessment ___ Family Conference ___ Bereavement ___ Rapid Response ___ Code Blue ___ Other (describe below) Pastoral Care Referral From _x__ Patient ___ Family ___ Nurse ___ Physician ___ Licensing Specialist ___ Program Professional ___ Other (describe below) Sacrament/Intervention _x__ Active listening ___ Anointing ___ Advent ___ Bereavement ___ Communion ___ Ashlyn exploration ___ _x__ Life review _x__ Prayer ___ Reconciliation ___ Sacrament of Sick _x__ Supportive presence ___ Wedding ___ Other (describe below) Pastoral Comments took a walk with the patient as he was doing therapy with the staff; listened to patient talk about his experience and that he is going to be released next ; pt admits to being half excited and half not excited because of wondering if he can do the stairs; PT reminds him that he will have home health for awhile to assist and help his progress; pt is talkative and invites this supervisor cutting and sewing room into his room for more discussion and a prayer
[2024-07-08] MEDS: Rivaroxaban 10 MG Tablet PO (16:52)
[2024-07-08] MEDS: Hydroxyurea 500 MG Capsule 1500 MG PO (19:59)
[2024-07-08] MEDS: Nystatin Powder 15gm Bottle 1 APPLIC TOPICAL (20:00)
[2024-07-08] MEDS: Magnesium Chloride 64 MG Delay Rel.Tablet 128 MG PO (20:00)
[2024-07-08] MEDS: guaiFENesin 10 ML UDC (200MG/10ML) PO (23:32)
[2024-07-08] MEDS: Zolpidem Tartrate 5 MG Tablet 10 MG PO (23:32)
[2024-07-09] MEDS: Acetaminophen 500 MG Tablet 1000 MG PO ×3 (05:34→21:35)
[2024-07-09] MEDS: oxyCODONE 5 MG Tablet PO (05:36)
[2024-07-09 07:02] LABS: ALB/GLOB Ratio 1.5 RATIO (0.9-2.4); AST(SGOT) 17 U/L (<=37); Alanine Aminotransfer ALT/SGPT 17 U/L (<=46); Albumin, Serum 3.5 g/dL (3.4-4.8); Alkaline Phosphatase 98 U/L (40-129); Anion Gap 11 (5-15); BUN 26 mg/dL (4-19); Calcium,Total 9.7 mg/dL (7.6-11.0); Carbon Dioxide 20.9 mmol/L (21.0-32.0); Chloride 107 mmol/L (98-108); Creatinine, Serum 1.75 mg/dL (0.70-1.20); EST Glomerular Filtration Rate 41 (>60); Estimated Creatinine Clearance 39.28 ml/min (50-250); Globulin 2.3 g/dL (2.2-4.2); Glucose 110 mg/dL (70-99); Potassium 5.1 mmol/L (3.3-5.1); Protein, Total 5.8 g/dL (5.9-8.4); Sodium Level 140 mmol/L (133-145)
[2024-07-09 07:25] LABS: Absolute Lymphocyte Count 14.38 X10^3/uL (0.83-4.51); Absolute Neutrophil Count 1.9 X10^3/uL (2.0-7.7); Basophil# 0.01 X10^3/uL; Basophil% 0.1 % (0-1); Eosinophil# 0.01 X10^3/uL; Eosinophils% 0.1 % (0-5); Hematocrit 25.4 % (40-54); Hemoglobin 8.1 g/dL (13.0-16.5); Lymphocyte # 14.38 X10^3/ul (0.83-4.51); Lymphocyte % 74.2 % (19-41); Mean Corp Hgb Conc 31.9 g/dL (32-36); Mean Corpuscular Hgb 39.5 pg (27.0-32.0); Mean Corpuscular Volume 123.9 fL (80-94); Mean Platelet Vol. 9.6 fl (6.2-12.0); Monocyte# 2.97 X10^3/uL; Monocyte% 15.3 % (0-10); NRBC Flagged by Analyzer 0 % (0-5); Neutrophil % 9.8 % (47-70); POSITIVE DIFFERENTIAL YES; POSITIVE MORPHOLOGY YES; Platelet Count 143 K/mm3 (150-450); Red Blood Count 2.05 M/mm3 (4.6-6.2); White Blood Count 19.4 K/mm3 (4.4-11.0)
[2024-07-09] MEDS: Albuterol IH (6.7 GM) 1 PUFF INHALER INHALATION ×2 (09:56→21:36)
[2024-07-09] MEDS: Clotrimazole/Betamethasone 1 Tube 1 APPLIC TOPICAL (09:56)
[2024-07-09] MEDS: Calcium (Elemental) 500 MG Tablet PO (09:58)
[2024-07-09] MEDS: Multivitamins,Ther W-Minerals Tablet 1 TABLET PO (09:58)
[2024-07-09] MEDS: Calcitriol 0.25 MCG Capsule PO (10:00)
[2024-07-09] MEDS: Escitalopram Oxalate 10 MG Tablet PO (10:00)
[2024-07-09] MEDS: Pantoprazole Sodium 40 MG Tablet PO (10:00)
[2024-07-09 10:01] VITALS: BP 122/69; PULSE 107
[2024-07-09] MEDS: Metoprolol(XL)Succ 100 MG Tablet PO (10:01)
[2024-07-09] MEDS: Ascorbic Acid 500 MG Tablet 2000 MG PO (10:02)
[2024-07-09 10:06] VITALS: BP 122/69; PULSE 107; RESP 18; TEMP 36.8; O2SAT 92
[2024-07-09 10:45] LABS: Differential Indicated SCAN CRITERIA MET
[2024-07-09] MEDS: Ferrous Sulfate 325 MG Tablet PO (11:12)
[2024-07-09 11:32] LABS: Anisocytosis 3+; Platelet Estimate SLT DEC (ADEQ)
[2024-07-09] MEDS: guaiFENesin 10 ML UDC (200MG/10ML) PO (12:03)
[2024-07-09 13:45] VITALS: PULSE 94; RESP 18; O2SAT 94
[2024-07-09] MEDS: Rivaroxaban 10 MG Tablet PO (17:24)
[2024-07-09] MEDS: Magnesium Chloride 64 MG Delay Rel.Tablet 128 MG PO (21:34)
[2024-07-09] MEDS: Hydroxyurea 500 MG Capsule 1500 MG PO (21:35)
[2024-07-09] MEDS: Nystatin Powder 15gm Bottle 1 APPLIC TOPICAL (21:35)
[2024-07-09] MEDS: Zolpidem Tartrate 5 MG Tablet 10 MG PO (21:40)
[2024-07-10] MEDS: Acetaminophen 500 MG Tablet 1000 MG PO ×3 (06:00→22:42)
[2024-07-10 07:35] LABS: Hematocrit 22.7 % (40-54); Hemoglobin 7.6 g/dL (13.0-16.5)
--- NOTE | 2024-07-10 08:09 | NURSING ---
Pt. Hgb this morning was 7.6. Dr. Orozco notified via secure text line. Dr. Orozco ordered for pt. Xeralto to be placed on hold, to type and cross pt. for 2 units of PRBC, transfuse pt. with 2 units of PRBC, and recheck H&H 24 hours after infusion. Orders confirmed with Dr. Orozco via secure text back. Infusion form faxed to infusion center.
[2024-07-10] MEDS: Calcium (Elemental) 500 MG Tablet PO (09:36)
[2024-07-10] MEDS: Escitalopram Oxalate 10 MG Tablet PO (09:36)
[2024-07-10] MEDS: Multivitamins,Ther W-Minerals Tablet 1 TABLET PO (09:36)
[2024-07-10] MEDS: Calcitriol 0.25 MCG Capsule PO (09:36)
[2024-07-10] MEDS: Clotrimazole/Betamethasone 1 Tube 1 APPLIC TOPICAL (09:36)
[2024-07-10] MEDS: Ascorbic Acid 500 MG Tablet 2000 MG PO (09:36)
[2024-07-10] MEDS: Pantoprazole Sodium 40 MG Tablet PO (09:36)
[2024-07-10] MEDS: Albuterol IH (6.7 GM) 1 PUFF INHALER INHALATION (09:36)
[2024-07-10 09:37] VITALS: PULSE 107
[2024-07-10] MEDS: Metoprolol(XL)Succ 100 MG Tablet PO (09:37)
[2024-07-10 10:54] VITALS: BP 114/63; PULSE 107; RESP 18; TEMP 36.7; O2SAT 95
[2024-07-10] MEDS: Ondansetron 8 MG Tablet PO ×2 (13:15→22:53)
[2024-07-10] MEDS: Ferrous Sulfate 325 MG Tablet PO (13:15)
[2024-07-10] MEDS: Magnesium Chloride 64 MG Delay Rel.Tablet 128 MG PO (22:43)
[2024-07-10] MEDS: Hydroxyurea 500 MG Capsule 1500 MG PO (22:43)
[2024-07-10] MEDS: oxyCODONE 5 MG Tablet PO (22:44)
[2024-07-10] MEDS: cycloBENZAPRine HCl 10 MG Tablet PO (22:45)
[2024-07-10] MEDS: Zolpidem Tartrate 5 MG Tablet 10 MG PO (22:45)
[2024-07-10] MEDS: Nystatin Powder 15gm Bottle 1 APPLIC TOPICAL (22:46)
[2024-07-10] MEDS: guaiFENesin 10 ML UDC (200MG/10ML) PO (22:53)
[2024-07-11] MEDS: Acetaminophen 500 MG Tablet 1000 MG PO ×3 (06:08→21:31)
[2024-07-11] MEDS: Pantoprazole Sodium 40 MG Tablet PO (09:37)
[2024-07-11] MEDS: Multivitamins,Ther W-Minerals Tablet 1 TABLET PO (09:37)
[2024-07-11] MEDS: Clotrimazole/Betamethasone 1 Tube 1 APPLIC TOPICAL (09:37)
[2024-07-11] MEDS: Albuterol IH (6.7 GM) 1 PUFF INHALER INHALATION ×2 (09:37→21:30)
[2024-07-11] MEDS: Calcium (Elemental) 500 MG Tablet PO (09:37)
[2024-07-11] MEDS: Ascorbic Acid 500 MG Tablet 2000 MG PO (09:37)
[2024-07-11 09:38] VITALS: PULSE 102
[2024-07-11] MEDS: Calcitriol 0.25 MCG Capsule PO (09:38)
[2024-07-11] MEDS: Metoprolol(XL)Succ 100 MG Tablet PO (09:38)
[2024-07-11] MEDS: Escitalopram Oxalate 10 MG Tablet PO (09:38)
[2024-07-11 10:36] VITALS: BP 112/64; PULSE 102; RESP 17; TEMP 36.7; O2SAT 94
[2024-07-11] MEDS: Ferrous Sulfate 325 MG Tablet PO (13:16)
[2024-07-11] MEDS: Magnesium Chloride 64 MG Delay Rel.Tablet 128 MG PO (21:30)
[2024-07-11] MEDS: Nystatin Powder 15gm Bottle 1 APPLIC TOPICAL (21:31)
[2024-07-11] MEDS: cycloBENZAPRine HCl 10 MG Tablet PO (21:41)
[2024-07-11] MEDS: oxyCODONE 5 MG Tablet PO (21:41)
[2024-07-11] MEDS: Zolpidem Tartrate 5 MG Tablet 10 MG PO (21:41)
[2024-07-11] MEDS: guaiFENesin 10 ML UDC (200MG/10ML) PO (21:42)
[2024-07-12] MEDS: guaiFENesin 10 ML UDC (200MG/10ML) PO ×2 (05:34→21:17)
[2024-07-12] MEDS: Acetaminophen 500 MG Tablet 1000 MG PO ×3 (05:34→21:08)
[2024-07-12 07:37] LABS: Hematocrit 24.1 % (40-54); Hemoglobin 8.1 g/dL (13.0-16.5)
--- NOTE | 2024-07-12 08:27 | PCM.PN.BLA ---
Progress Note His bronchitis recurred, sputum growing drug resistant pseudomonas aeruginosa, treat again with Meropenem. He also has tinea cruris, failed Nystatin powder, add Lotrisone cream, fluconazole. Dr. Pascual has told him in the past he needs a total body transplant. Siva only stays well for 10 to 14 days before he has another current infection. His rhinovirus is persistently positive on respiratory panel. Resident is not ready for hospice.
--- NOTE | 2024-07-12 08:29 | CON.PCM.GI_ITS ---
HPI Consult Data Date of Consult: 07/12/24 HPI Narrative Reason for Consultation: Anemia HPI Narrative: ADINA DAVID, is a 68 M who originally presented to TCU for strengthening prior to going homeed. He has a past medical history of myeloproliferative neoplasm, right kidney cancer status post radical nephrectomy in 2018, CLL with lung involvement, recent right hip fracture status postrepair. He has history of chronic iron deficiency anemia not on iron therapy. He also has a history of multiple DVTs and PEs currently with multiple clots in his right leg status post IVC filter. He was recently diagnosed with influenza A. He has had multiple GI bleeds in the past secondary to angiodysplastic lesions in his small bowel status post deep enteroscopy and EGD and colonoscopy. Currently is being taken care of by Dr. Jorge Carias. I was called to see him due to a continued decrease in hemoglobin and dark stools admitted by the patient. He stated that he did not want intervention done. I was asked to see him again due to decreasing hemoglobin and a continued requirement for blood transfusion. Patient is scheduled to get blood transfusion today. At this time he is still does not want any endoscopic interventions. [facility] Medical History History of reduction of closed fracture Anxiety Bladder disease Prostate disease Low iron Pulmonary embolism History of diverticulitis History of GI bleed Former smoker CPAP (continuous positive airway pressure) dependence COPD (chronic obstructive pulmonary disease) Hypertension History of stress test History of echocardiogram Cardiology follow-up encounter Paroxysmal atrial fibrillation Tachycardia LAFB (left anterior fascicular block) PAD (peripheral artery disease) Hyperlipidemia Depression Loss of hearing Cancer Chronic cough Shortness of breath on exertion History of edema History of heart attack (~2018) [place] filter in place Peripheral neuropathy Insomnia GERD (gastroesophageal reflux disease) Essential (primary) hypertension Hypomagnesemia Mastoiditis of right side TIA (transient ischemic attack) Recurrent deep vein thrombosis (DVT) Depressive disorder due to another medical condition with depressive features History of pulmonary embolism History of DVT (deep vein thrombosis) Iron deficiency anemia due to chronic blood loss Emphysema lung Multiple lipomas History of elevated PSA BPH (benign prostatic hyperplasia) AVM (arteriovenous malformation) of colon Chronic GI bleeding Diverticular disease History of skin cancer Multiple lung nodules Cancer of kidney Essential thrombocythemia Femur fracture (~2020) CKD (chronic kidney disease), stage III Debility Pulmonary fibrosis Pulmonary embolism DVT (deep venous thrombosis) Obstructive sleep apnea Coronary artery disease CLL (chronic lymphocytic leukemia) Rhodes esophagus COPD (chronic obstructive pulmonary disease) Home Medications ?Medication ?Instructions ?Recorded ?Last Taken ?Type albuterol sulfate 90 mcg/actuation 1 inh inhalation Q4 H PRN shortness 12/26/22 02/03/24 05:00 History aerosol inhaler of breath or wheezing omeprazole 40 mg capsule,delayed 40 mg PO DAILY GERD 0 12/26/22 04/27/24 07:15 History release zolpidem 5 mg tablet 10 mg PO QHS PRN PRN sleep 0 12/26/22 03/15/24 History evolocumab 140 mg/mL subcutaneous 140 mg subcut QMONTH [facility] 08/19/23 03/15/24 History pen injector (Repatha SureClick) rivaroxaban 20 mg tablet (Xarelto) 10 mg PO DAILY Bloo d Thinner 10/07/23 04/21/24 History hydroxyurea 500 mg capsule 1,500 mg PO MOTUWETHFRSA Ch emo 12/17/23 03/16/24 History ferrous sulfate 325 mg (65 mg 325 mg PO DAILY SUPPLEME NT 01/22/24 03/16/24 History iron) tablet (Feosol) calcium carbonate (Calcium 600) 600 mg PO DAILY Supple ment 02/03/24 03/16/24 History ascorbic acid (vitamin C) 500 mg 2 g PO DAILY Suppleme nt 03/17/24 03/16/24 History tablet cyclobenzaprine 10 mg tablet 10 mg PO TID PRN muscle s pasm 03/17/24 03/16/24 History cholecalciferol (vitamin D3) 50 400 unit PO DAILY Nutr ition 04/06/24 Unknown History mcg (2,000 unit) capsule (Vitamin D3) magnesium oxide 800 mg PO QHS Supplement Unknown History metoprolol succinate 100 mg 100 mg PO DAILY BP #90 tab s 05/05/24 Unknown Rx tablet,extended release 24 hr lactobacillus combination no.4 3 3,000 mmu cells PO QD AY 05/13/24 Unknown History billion cell capsule (Probiotic) budesonide 160 mcg-glycopyr 9 2 inh inhalation BID ASSISTANT DIRECTOR OF NURSING D 05/26/24 Unknown History mcg-formot 4.8 mcg/actuation HFA inhaler (Breztri Aerosphere) calcitriol 0.25 mcg capsule 0.25 mcg PO DAILY Suppleme nt 05/26/24 Unknown History multivitamin with minerals 1 cap PO DAILY Supplement 0 05/26/24 Unknown History acetaminophen 500 mg tablet 1,000 mg (2 x 500 mg) PO Q 8 #0 tabs 07/07/24 Unknown Rx escitalopram oxalate 10 mg tablet 10 mg PO DAILY 30 da ys #30 tabs 07/07/24 Unknown Rx oxycodone 5 mg tablet 5 mg PO Q4H PRN PRN Pain Sco re 07/07/24 Unknown Rx 1-10 Or Pre Pt/Ot 7 days #42 tabs Allergy/AdvReac Type Severity Reaction Status Date / Time Penicillins Allergy PT UNSURE Verified 05/13/24 14:16 OF REACTION doxycycline AdvReac Unknown Upset Verified 05/13/24 14:16 Stomach Family History Father Myocardial infarction Heart disease CVA (cerebral vascular accident) Mother Colon cancer Surgical History History of hydrocelectomy (~12/2019) History of surgery on lower extremity (02/03/24) History of cardiac catheterization (~2018) S/P IVC filter (~2023) History of heart artery stent (~2018) History of hernia surgery (~2021) H/O kidney removal (~05/2017) History of bowel resection (~2005) Hx of tonsillectomy Social History household members: children and other details: Lives with daughter Haydee, who has a , 2 children. Smoking Status: Former smoker pack-years: 10 alcohol intake: never substance use type: does not use, former substance user and other details: marijuana ROS Constitutional Constitutional: Reports weakness; Denies chills, fever(s) or weight gain ENT HEENT: Denies headache(s), nasal congestion or nasal discharge Cardiovascular Cardiovascular: Denies chest pain or palpitations Respiratory/Chest Respiratory/Chest: Denies cough, excessive phlegm production or shortness of breath with exertion Gastrointestinal Gastrointestinal: Denies abdominal pain, nausea or vomiting Genitourinary Genitourinary: Denies dysuria Musculoskeletal Musculoskeletal: Reports joint pain and other Details: Right hip pain. ; Denies joint swelling Integumentary Integumentary: Denies rash or wounds Neurologic Neurologic: Denies focal weakness, numbness or tingling Psychiatric Psychiatric: Denies anxiety, auditory hallucinations, depression, homicidal ideation or suicidal ideation Physical Exam Const alert General Appearance: cooperative HEENT normocephalic Eyes PERRL and EOMs intact bilaterally Neck supple, no JVD and no carotid bruits Resp normal respiratory effort, normal air movement and clear to auscultation bilaterally Cardio regular rate and regular rhythm GI normal to inspection, nondistended, normoactive bowel sounds, non-tender and non-distended Percussion: normal to percussion Rectal Exam: deferred Extremity normal capillary refill General Extremity: Negative for edema Skin no rashes or lesions noted General Skin Exam: no breakdown Psych affect normal Appearance: appropriate Lab / Micro Data 07/12/24 07:30 07/09/24 05:13 Labs: Laboratory Results - last 24 hr 07/11/24 08:35: Blood Type B POSITIVE, Antibody Screen NEGATIVE, Crossmatch See Detail 07/12/24 07:30: Hgb 8.1 L, Hct 24.1 L Assessment & Plan Assessment/Plan (1) Iron deficiency anemia: (2) Debility: (3) Closed right hip fracture: (4) CLL (chronic lymphocytic leukemia): (5) PAOD (peripheral arterial occlusive disease): (6) COPD (chronic obstructive pulmonary disease): (7) Chronic diarrhea: (8) Pulmonary embolism: (9) Chronic GI bleeding: (10) AVM (arteriovenous malformation) of colon: PLAN: Plan 68 year old male with a complicated below past medical history who was recently hospitalized for right hip fracture, underwent right hip cephalomedullary nail fixation 05/24/[address] Ramsey. His postoperative course complicated by acute blood loss anemia requiring recurrent blood transfusion, bronchitis, Pseudomonas pneumonia and influenza. He is still i experiencing signs of upper GI bleed. I another had a long talk with him regarding the need for intervention due to his already low hemoglobin and history of GI bleeds. However, he does not want intervention at this time. Please notify me if the patient changes his mind. Charges/Coding Visit Charges Inpatient E&M: 10252 SNF Init L2
[2024-07-12] MEDS: Multivitamins,Ther W-Minerals Tablet 1 TABLET PO (08:47)
[2024-07-12] MEDS: Calcium (Elemental) 500 MG Tablet PO (08:47)
--- NOTE | 2024-07-12 09:18 | NURSING ---
Addendum entered by Kayley Yu 07/12/24 09:38: New order faxed to infusion center. Updated resident. Original Note: Clarified w/ Dr. Orozco about blood transfusion as hgb up to 8.1 today. Order to give 1 unit PRBCs, no lasix. Updated infusion center, they will transfuse tomorrow 07/13/24 @10:30.
[2024-07-12] MEDS: Escitalopram Oxalate 10 MG Tablet PO (09:55)
[2024-07-12] MEDS: Calcitriol 0.25 MCG Capsule PO (09:56)
[2024-07-12] MEDS: Pantoprazole Sodium 40 MG Tablet PO (09:56)
[2024-07-12] MEDS: Ascorbic Acid 500 MG Tablet 2000 MG PO (09:56)
[2024-07-12 09:57] VITALS: PULSE 88
[2024-07-12] MEDS: Metoprolol(XL)Succ 100 MG Tablet PO (09:57)
[2024-07-12] MEDS: Albuterol IH (6.7 GM) 1 PUFF INHALER INHALATION ×2 (10:00→21:16)
[2024-07-12] MEDS: Nystatin Powder 15gm Bottle 1 APPLIC TOPICAL (10:01)
[2024-07-12] MEDS: Clotrimazole/Betamethasone 1 Tube 1 APPLIC TOPICAL ×2 (10:01→21:06)
[2024-07-12] MEDS: Ferrous Sulfate 325 MG Tablet PO (11:44)
[2024-07-12 14:07] VITALS: BP 110/70; PULSE 87; RESP 16; TEMP 37.8; O2SAT 90
--- NOTE | 2024-07-12 17:59 | PN.TCU_ITS ---
Subjective Subjective Resident seen, examined for regulatory visit. His hemoglobin has been trending down, transfuse 1 unit PRBC, hemoccult +, Dr. Friend consulted, but resident declined EGD. Resident stated he would rather have double balloon enteroscopy which he will pursue thru [facility]. Objective Data Objective Data Vital Signs: Vital Signs Temp Pulse Resp BP Pulse Ox O2 Del Method 100.1 F H 87 16 110/70 90 Room Air 07/12/24 14:07 07/12/24 14:07 07/12/24 14:07 07/12/24 14:07 07/12/24 14:07 07/12/24 14:07 Oxygen Delivery Method Room Air Weight: 77.61 kg Body Mass Index (BMI) 25.3 Intake & Output: Intake and Output for Last 24 Hours 07/10/24 07/11/24 07/12/24 23:59 23:59 23:59 Intake Total 720 / 720 1200 / 1200 600 / 600 Balance 720 / 720 1200 / 1200 600 / 600 Lab / Micro Data 07/12/24 07:30 07/09/24 05:13 Labs: Laboratory Results - last 24 hr 07/12/24 07:30: Hgb 8.1 L, Hct 24.1 L Micro: Microbiology 07/10/24 20:30 Stool Stool Occult Blood (TODD) - Final Occult Blood Positive 06/15/24 17:05 Sputum, Expectorated/Coughed Gram Stain - Final 06/15/24 17:05 Sputum, Expectorated/Coughed Respiratory Culture - Final Pseudomonas aeruginosa 06/15/24 17:37 Mucosa - Nasopharyngeal Respiratory Panel (PCR) - Final Rhinovirus 06/15/24 17:10 Nasal Secretion SARS-CoV-2 Antigen (Rapid) - Final 05/29/24 21:25 Sputum, Expectorated/Coughed Gram Stain - Final 05/29/24 21:25 Sputum, Expectorated/Coughed Respiratory Culture - Final Pseudomonas aeruginosa Pseudomonas aeruginosa#2 06/02/24 05:15 Nasal Secretion SARS-CoV-2 Antigen (Rapid) - Final 05/31/24 09:00 Stool Stool Occult Blood (TODD) - Final Occult Blood Positive 05/29/24 20:30 Mucosa - Nasopharyngeal Respiratory Panel (PCR) - Final Influenza A (Subtype H3) Rhinovirus 05/29/24 20:47 Nasal Secretion SARS-CoV-2 Antigen (Rapid) - Final Physical Exam Const alert General Appearance: cooperative HEENT normocephalic Eyes PERRL and EOMs intact bilaterally Neck supple, no JVD and no carotid bruits Resp normal respiratory effort, normal air movement and clear to auscultation bilaterally Cardio regular rate and regular rhythm GI normal to inspection, nondistended, normoactive bowel sounds, non-tender and non-distended Extremity normal capillary refill Extremity Narrative: Right hip dressings clean, dry, intact. General Extremity: Negative for edema Skin no rashes or lesions noted General Skin Exam: no breakdown Psych affect normal Appearance: appropriate Assessment & Plan Assessment/Plan (1) Debility: (2) Closed right hip fracture: (3) CLL (chronic lymphocytic leukemia): (4) PAOD (peripheral arterial occlusive disease): (5) COPD (chronic obstructive pulmonary disease): (6) Anxiety: (7) Iron deficiency anemia: (8) Chronic diarrhea: (9) Depression: QUALIFIERS: Depression Type: unspecified Qualified Code(s): F32.A - Depression, unspecified (10) Hypomagnesemia: (11) Essential (primary) hypertension: (12) Insomnia: PLAN: Plan 68 year old male with below past medical history hospitalized for right hip fracture, underwent right hip cephalomedullary nail fixation 05/24/[address] Ramsey, postoperative course complicated by acute blood loss anemia requiring 1 unit PRBC transfusion, admitted to TCU with debility, here for rehabilitation, strengthening, prior to discharge home with daughter. * Debility - PT/OT. * Dysphagia- ST. * Pain - Tylenol 1000mg q8. * Bowel - Magnesium citrate 300mL daily prn. * Adult immunization - Administer pneumonia vaccine, covid vaccine, flu vaccine as appropriate. * DVT prophylaxis - Xarelto 10mg daily. * Cough - Robitussin 10ML q4 prn. * COPD - Fluticasone/Salmeterol 232-21 1 puff bid, Incruse 1 puff daily, Albuterol 1 puff q4 prn. * Iron deficiency anemia - Ferrous sulfate 325m daily, Vitamin C 2000mg daily. * Secondary hyperparathyroidism - Calcitriol 0.25mg daily. * Calcium deficiency - Calcium 600mg daily. * Muscle spasm - Flexeril 10mg tid prn. * Depression - Lexapro 10mg daily. * Thrombocythemia - Hydrea 1500mg 6 days/week. * Hypomagnesemia - Magnesium chloride 128mg qhs. * Hypertension - Metoprolol succinate 100mg daily. * Nutrition - MVI 1 tablet daily. * Nausea - Zofran 8mg daily prn. * GERD - Pantoprazole 40mg daily. * DVT/PE - Xarelto 10mg daily. * Insomnia - Zolpidem 10mg qhs prn, stable chronic manager intermediate use, GDR not recommended. * Tinea cruris - Nystatin powder topical bid, Lotrisone cream topical bid. * Muscle spasm - Flexeril 10mg tid prn.
[2024-07-12] MEDS: Hydroxyurea 500 MG Capsule 1500 MG PO (21:06)
[2024-07-12] MEDS: Magnesium Chloride 64 MG Delay Rel.Tablet 128 MG PO (21:07)
[2024-07-12] MEDS: Zolpidem Tartrate 5 MG Tablet 10 MG PO (21:17)
[2024-07-12] MEDS: cycloBENZAPRine HCl 10 MG Tablet PO (21:17)
[2024-07-12] MEDS: oxyCODONE 5 MG Tablet PO (21:18)
[2024-07-13] MEDS: Acetaminophen 500 MG Tablet 1000 MG PO ×3 (06:25→22:16)
[2024-07-13 07:24] VITALS: BP 113/72; PULSE 100; RESP 18; TEMP 37.5; O2SAT 94
[2024-07-13] MEDS: Multivitamins,Ther W-Minerals Tablet 1 TABLET PO (07:27)
[2024-07-13] MEDS: Calcium (Elemental) 500 MG Tablet PO (07:28)
[2024-07-13] MEDS: Escitalopram Oxalate 10 MG Tablet PO (07:28)
[2024-07-13 07:29] VITALS: PULSE 100
[2024-07-13] MEDS: Metoprolol(XL)Succ 100 MG Tablet PO (07:29)
[2024-07-13] MEDS: Calcitriol 0.25 MCG Capsule PO (07:29)
[2024-07-13] MEDS: Ascorbic Acid 500 MG Tablet 2000 MG PO (07:29)
[2024-07-13] MEDS: Pantoprazole Sodium 40 MG Tablet PO (07:30)
[2024-07-13] MEDS: Nystatin Powder 15gm Bottle 1 APPLIC TOPICAL ×2 (07:30→22:28)
[2024-07-13] MEDS: Ferrous Sulfate 325 MG Tablet PO (10:02)
[2024-07-13] MEDS: guaiFENesin 10 ML UDC (200MG/10ML) PO ×2 (10:06→22:16)
[2024-07-13] MEDS: Albuterol IH (6.7 GM) 1 PUFF INHALER INHALATION ×2 (10:07→22:16)
--- NOTE | 2024-07-13 10:29 | NURSING ---
Addendum entered by Parker Gamble 07/13/24 13:18: Pt. returned to unit from infusion center at this time. Original Note: R' TRANSFERRED OFF UNIT FOR BLOOD TRANSFUSION AT THIS TIME.
[2024-07-13 10:58] VITALS: BP 111/61; PULSE 92; RESP 14; TEMP 35.9; O2SAT 95; BMI 25.2
[2024-07-13 11:00] VITALS: BMI 25.2
[2024-07-13 11:20] VITALS: BP 98/66; PULSE 88; RESP 16; TEMP 36.1; O2SAT 96
[2024-07-13 13:00] VITALS: BP 96/54; PULSE 59; RESP 16; TEMP 36.3; O2SAT 93
[2024-07-13] MEDS: Rivaroxaban 10 MG Tablet PO (17:47)
[2024-07-13 22:15] VITALS: PULSE 70; O2SAT 92
[2024-07-13] MEDS: Magnesium Chloride 64 MG Delay Rel.Tablet 128 MG PO (22:15)
[2024-07-13] MEDS: Hydroxyurea 500 MG Capsule 1500 MG PO (22:15)
[2024-07-13] MEDS: Zolpidem Tartrate 5 MG Tablet 10 MG PO (22:16)
[2024-07-13] MEDS: cycloBENZAPRine HCl 10 MG Tablet PO (22:16)
[2024-07-14] MEDS: Acetaminophen 500 MG Tablet 1000 MG PO ×3 (06:12→21:22)
[2024-07-14] MEDS: Clotrimazole/Betamethasone 1 Tube 1 APPLIC TOPICAL (10:02)
[2024-07-14] MEDS: Albuterol IH (6.7 GM) 1 PUFF INHALER INHALATION ×2 (10:03→21:30)
[2024-07-14] MEDS: Calcium (Elemental) 500 MG Tablet PO (10:04)
[2024-07-14] MEDS: Multivitamins,Ther W-Minerals Tablet 1 TABLET PO (10:04)
[2024-07-14 10:05] VITALS: BP 125/76; PULSE 108
[2024-07-14] MEDS: Metoprolol(XL)Succ 100 MG Tablet PO (10:05)
[2024-07-14] MEDS: Pantoprazole Sodium 40 MG Tablet PO (10:05)
[2024-07-14] MEDS: Escitalopram Oxalate 10 MG Tablet PO (10:05)
[2024-07-14] MEDS: Ascorbic Acid 500 MG Tablet 2000 MG PO (10:05)
[2024-07-14] MEDS: Calcitriol 0.25 MCG Capsule PO (10:06)
[2024-07-14 10:27] VITALS: BP 125/76; PULSE 108; RESP 18; O2SAT 95
[2024-07-14] MEDS: guaiFENesin 10 ML UDC (200MG/10ML) PO ×2 (10:59→21:30)
[2024-07-14] MEDS: Ferrous Sulfate 325 MG Tablet PO (11:00)
[2024-07-14] MEDS: oxyCODONE 5 MG Tablet PO ×2 (11:03→21:31)
[2024-07-14] MEDS: Ondansetron 8 MG Tablet PO (11:04)
[2024-07-14 11:10] VITALS: PULSE 108; RESP 24; O2SAT 94
[2024-07-14 13:07] VITALS: TEMP 36.3
[2024-07-14 14:18] LABS: Hematocrit 30.6 % (40-54); Hemoglobin 10.2 g/dL (13.0-16.5)
[2024-07-14] MEDS: Rivaroxaban 10 MG Tablet PO (17:09)
[2024-07-14] MEDS: Hydroxyurea 500 MG Capsule 1500 MG PO (21:21)
[2024-07-14] MEDS: Magnesium Chloride 64 MG Delay Rel.Tablet 128 MG PO (21:23)
[2024-07-14] MEDS: Nystatin Powder 15gm Bottle 1 APPLIC TOPICAL (21:27)
[2024-07-14] MEDS: cycloBENZAPRine HCl 10 MG Tablet PO (21:30)
[2024-07-14] MEDS: Zolpidem Tartrate 5 MG Tablet 10 MG PO (21:30)
[2024-07-15 01:39] VITALS: PULSE 84; O2SAT 94
[2024-07-15] MEDS: Acetaminophen 500 MG Tablet 1000 MG PO (06:17)
[2024-07-15] MEDS: Multivitamins,Ther W-Minerals Tablet 1 TABLET PO (08:27)
[2024-07-15] MEDS: Calcium (Elemental) 500 MG Tablet PO (08:27)
[2024-07-15] MEDS: Escitalopram Oxalate 10 MG Tablet PO (08:30)
[2024-07-15] MEDS: Nystatin Powder 15gm Bottle 1 APPLIC TOPICAL (08:30)
[2024-07-15] MEDS: Albuterol IH (6.7 GM) 1 PUFF INHALER INHALATION (08:31)
[2024-07-15 08:32] VITALS: BP 93/62; PULSE 106
[2024-07-15] MEDS: Calcitriol 0.25 MCG Capsule PO (08:32)
[2024-07-15] MEDS: Pantoprazole Sodium 40 MG Tablet PO (08:32)
[2024-07-15] MEDS: Ascorbic Acid 500 MG Tablet 2000 MG PO (08:33)
[2024-07-15 08:38] VITALS: BP 93/62; PULSE 106; RESP 18; TEMP 36.9; O2SAT 92
--- NOTE | 2024-07-15 09:15 | CASEMGMT ---
Social Work SW completed BIMS () and PHQ-2 () for MDS assessment. Janie Robb PRODUCT MARKETING CONSULTANT INFORMATICA DEVELOPER
== END 2024-07-15 10:50 | disposition home health service (06) | DRG 559 ==
PROVIDERS: Internal Medicine Infectious Disease; Admitting Provider Family Medicine Geriatric Medicine; PCP Family Medicine Geriatric Medicine; Visit Provider Family Medicine Geriatric Medicine
DX: S72.001D Fracture of unspecified part of neck of right femur, subsequent encounter for closed fracture with routine healing (principal); J15.1 Pneumonia due to Pseudomonas; I82.412 Acute embolism and thrombosis of left femoral vein; C94.6 Myelodysplastic disease, not elsewhere classified; D62 Acute posthemorrhagic anemia; N25.81 Secondary hyperparathyroidism of renal origin; C91.10 Chronic lymphocytic leukemia of B-cell type not having achieved remission; I48.0 Paroxysmal atrial fibrillation; B35.6 Tinea cruris; J43.9 Emphysema, unspecified; N18.30 Chronic kidney disease, stage 3 unspecified; D50.9 Iron deficiency anemia, unspecified; I12.9 Hypertensive chronic kidney disease with stage 1 through stage 4 chronic kidney disease, or unspecified chronic kidney disease; I73.9 Peripheral vascular disease, unspecified; F32.A Depression, unspecified; E78.5 Hyperlipidemia, unspecified; K52.9 Noninfective gastroenteritis and colitis, unspecified; E83.42 Hypomagnesemia; F41.9 Anxiety disorder, unspecified; W19.XXXD Unspecified fall, subsequent encounter; K40.90 Unilateral inguinal hernia, without obstruction or gangrene, not specified as recurrent; J20.9 Acute bronchitis, unspecified; K21.9 Gastro-esophageal reflux disease without esophagitis; I25.10 Atherosclerotic heart disease of native coronary artery without angina pectoris; Z86.711 Personal history of pulmonary embolism; Z87.891 Personal history of nicotine dependence; G47.00 Insomnia, unspecified; Z79.899 Other long term (current) drug therapy; Z79.51 Long term (current) use of inhaled steroids; Z79.01 Long term (current) use of anticoagulants; K55.20 Angiodysplasia of colon without hemorrhage; B00.1 Herpesviral vesicular dermatitis; B97.89 Other viral agents as the cause of diseases classified elsewhere
CPT/HCPCS: 36415; 36430; 71046; 73502; 74230; 80048; 80053; 82274; 83540; 83550; 85014; 85018; 85025; 85027; 86644; 86850; 86900; 86901; 87070; 87077; 87184; 87186; 87205; 87633; 87811; 92526; 92610; 92611; 97110; 97116; 97162; 97166; 97530; 97535; 97802; 97803; J2185; P9016; A4216; J1940

== ENCOUNTER → 2024-06-02 | Outpatient (CLI) | payer MEDICARE, OTHER, SELFPAY ==
--- NOTE | 2024-06-02 17:58 | CT_ITS ---
PROCEDURE: CT abdomen and pelvis with IV contrast REASON FOR EXAM: Left lower quadrant pain TECHNIQUE: Multiple contiguous axial images of the abdomen and pelvis were obtained after the administration of intravenous contrast. Two-dimensional coronal and sagittal reformatted images were reconstructed. Low-dose imaging technique was utilized. COMPARISON: 01/16/2024 FINDINGS: Bibasilar bronchial wall thickening and scattered reticulonodular opacities in the posterior lower lobes. Liver, spleen, pancreas and adrenal glands are intact. Gallbladder is satisfactory. No significant biliary ductal dilation. Right kidney is surgically absent. Left kidney is intact. No renal calculi or hydronephrosis. Urinary bladder is within normal limits. Postsurgical changes at the rectosigmoid junction. No bowel obstruction, focal bowel wall thickening or significant perienteric inflammation. Jejunal diverticulosis. Several distal colonic diverticula also noted. No pelvic free fluid. No free air. Calcified nonaneurysmal abdominal aorta. No bulky adenopathy. IVC filter in place. Moderate size fat containing left inguinal hernia. Scarring in the right inguinal region. Possible thrombus in the left common femoral vein. Fluid in the right iliopsoas bursa. Subcutaneous edema about the right hip. Acute/subacute right trochanteric fracture with intact fixation hardware. Chronic left trochanteric fracture with gamma nail fixation. Degenerative changes of the spine. CT/Abdomen/Pelvis WITH Contrast IMPRESSION: 1. Bibasilar reticulonodular opacities and bronchial wall thickening, likely in fectious/inflammatory. 2. No bowel obstruction or acute inflammatory process in the abdomen/pelvis. 3. Moderate size fat containing left inguinal hernia. 4. Possible deep vein thrombosis in the left common femoral vein. IVC filter i n place. 5. Recent right trochanteric fracture status post gamma nail fixation and overl charly subcutaneous edema. One or more dose reduction techniques were used (e.g., Automated exposure contr ol, adjustment of the mA and/or kV according to patient size, use of iterative reconstruction technique). Reading Location: [facility]
== END | disposition home or self-care (01) ==
LOC: CT 17:55
PROVIDERS: PCP Family Medicine Geriatric Medicine; Visit Provider Family Medicine Geriatric Medicine
DX: R10.32 Left lower quadrant pain (principal)
CPT/HCPCS: 74177; Q9967

== ENCOUNTER → 2024-06-03 | Outpatient (CLI) | payer MEDICARE, OTHER, SELFPAY ==
--- NOTE | 2024-06-03 08:38 | VDLE_ITS ---
Reason For Study Reason For Study: LLE Pain / HX DVT RIGHT LEFT CFV is PARTIALLY COMPRESSIBLE with hypoechoic GSV is compressible with vein wall thickening noted intraluminal echoes. throughout. FV is NONCOMPRESSIBLE with intraluminal echoes. CFV is compressible, spontaneous, phasic, competent, Unable to visualize flow in Pulsed wave or Color and demonstrates normal augmentation. Doppler. FV is PARTIALLY COMPRESSIBLE with hypoechoic POP V is PARTIALLY COMPRESSIBLE with continuous flow intraluminal echoes and vein wall thickening noted noted in pulsed wave and color doppler. throughout. Procedure Acute deep vein thrombosis is noted in the POP V. It This is a venous duplex using B-mode, color flow and is dilated and NONCOMPRESSIBLE. spectral Doppler. Acute deep vein thrombosis is noted in the T/P Trunk. Exam performed portable in patient room. It is dilated and NONCOMPRESSIBLE. The exam was diagnostic. PTV is compressible. A preliminary report was called and/or faxed to TCU LT PerV is compressible. RN. VL/Venous Duplex US, Unilateral Interpretation Summary Acute deep vein thrombosis noted in left popliteal vein, tibioperoneal trunk ve in. Chronic deep vein thrombosis noted in left femoral vein. Chronic deep vein thrombosis noted in right common femoral vein, femoral vein, popliteal vein. Ordering Physician: Leighton Orozco Chi Referring Physician: Leighton Orozco Chi Performed By: Steve Harris, RVT
== END | disposition home or self-care (01) ==
PROVIDERS: PCP Family Medicine Geriatric Medicine; Referring Provider Family Medicine Geriatric Medicine; Visit Provider Family Medicine Geriatric Medicine
DX: M79.604 Pain in right leg (principal)
CPT/HCPCS: 93971

== ENCOUNTER → 2024-06-16 | Outpatient (CLI) | payer MEDICARE, OTHER, SELFPAY ==
--- NOTE | 2024-06-16 10:54 | CT_ITS ---
PROCEDURE: CHEST WITHOUT CONTRAST REASON FOR EXAM: History of lung nodules. TECHNIQUE: Chest CT without contrast. COMPARISON: Comparison is made with prior study dated February 10, 2024. FINDINGS: Hardware: None. Lymph nodes: No mediastinal hilar or axillary lymphadenopathy. Heart and Vasculature: Normal heart size. No pericardial effusion. Thoracic aorta and pulmonary arteries have normal contours; noncontrast technique limits evaluation. Coronary Artery Calcifications: Present Lungs and Airways: Stable 1.8 cm nodular density in the right upper lobe abutting the minor fissure with increased markings in the surrounding area suggestive of scarring. No new nodules are seen. Scarring and bronchiectasis in the lower lobes more prominent on the right side. Pleura: No pleural effusion. No pneumothorax. Upper Abdomen: Visualized portions of the upper abdominal viscera are unremarkable. Bones: Degenerative changes of the thoracic spine. CT/Chest without Contrast IMPRESSION: Stable examination. Six-month follow-up recommended. One or more dose reduction techniques were used (e.g., Automated exposure contr ol, adjustment of the mA and/or kV according to patient size, use of iterative reconstruction technique). Reading Location: [id number]
== END | disposition home or self-care (01) ==
LOC: CT 10:52
PROVIDERS: PCP Family Medicine Geriatric Medicine; Referring Provider Family Medicine Geriatric Medicine; Visit Provider Family Medicine Geriatric Medicine
DX: R91.8 Other nonspecific abnormal finding of lung field (principal); R59.9 Enlarged lymph nodes, unspecified
CPT/HCPCS: 71250

== ENCOUNTER → 2024-07-20 | Outpatient (CLI) | payer MEDICARE, OTHER, SELFPAY ==
[2024-07-20 13:38] LABS: Absolute Lymphocyte Count 13.62 X10^3/uL (0.83-4.51); Absolute Neutrophil Count 2.8 X10^3/uL (2.0-7.7); Basophil# 0.05 X10^3/uL; Basophil% 0.2 % (0-1); Eosinophil# 0.01 X10^3/uL; Hematocrit 26.8 % (40-54); Hemoglobin 8.5 g/dL (13.0-16.5); Lymphocyte # 13.62 X10^3/ul (0.83-4.51); Lymphocyte % 59.9 % (19-41); Mean Corp Hgb Conc 31.7 g/dL (32-36); Mean Corpuscular Hgb 37.8 pg (27.0-32.0); Mean Corpuscular Volume 119.1 fL (80-94); Mean Platelet Vol. 10.1 fl (6.2-12.0); Monocyte% 27.3 % (0-10); NRBC Flagged by Analyzer 0.1 % (0-5); Neutrophil # 2.79 X10^3/uL (2.7-7.7); Neutrophil % 12.3 % (47-70); POSITIVE DIFFERENTIAL YES; POSITIVE MORPHOLOGY YES; Platelet Count 270 K/mm3 (150-450); Red Blood Count 2.25 M/mm3 (4.6-6.2); White Blood Count 22.7 K/mm3 (4.4-11.0)
[2024-07-20 14:08] LABS: Differential Indicated SCAN CRITERIA MET
[2024-07-20 14:09] LABS: Anisocytosis 2+; Atypical Lymphocyte 2+ %; Differential Comment SCANNED
[2024-07-20 14:26] LABS: ALB/GLOB Ratio 1.3 RATIO (0.9-2.4); AST(SGOT) 17 U/L (<=37); Alanine Aminotransfer ALT/SGPT 27 U/L (<=46); Albumin, Serum 3.5 g/dL (3.4-4.8); Alkaline Phosphatase 118 U/L (40-129); Anion Gap 14 (5-15); BUN 25 mg/dL (4-19); Calcium,Total 9.1 mg/dL (7.6-11.0); Carbon Dioxide 22.7 mmol/L (21.0-32.0); Chloride 101 mmol/L (98-108); Creatinine, Serum 1.82 mg/dL (0.70-1.20); EST Glomerular Filtration Rate 39 (>60); Globulin 2.7 g/dL (2.2-4.2); Glucose 117 mg/dL (70-99); Potassium 4.3 mmol/L (3.3-5.1); Protein, Total 6.2 g/dL (5.9-8.4); Sodium Level 138 mmol/L (133-145); Thyroid Stim Hormone (TSH) 0.371 uIU/mL (0.300-4.200); Total Bilirubin 0.33 mg/dL (0.00-1.30); Vitamin D,25 Hydroxy 31.4 ng/mL (30-100)
== END | disposition home or self-care (01) ==
LOC: LAB 12:30
PROVIDERS: PCP Family Medicine Geriatric Medicine; Referring Provider Family Medicine Geriatric Medicine; Visit Provider Family Medicine Geriatric Medicine
DX: I10 Essential (primary) hypertension (principal); E55.9 Vitamin D deficiency, unspecified
CPT/HCPCS: 36415; 80053; 82306; 84443; 85025

== ENCOUNTER → 2024-07-26 | Outpatient (CLI) | payer MEDICARE, OTHER, SELFPAY | END | disposition home or self-care (01) | LOC: LABSPEC 12:38 | PROVIDERS: PCP Family Medicine Geriatric Medicine | DX: J44.1 Chronic obstructive pulmonary disease with (acute) exacerbation (principal) | CPT/HCPCS: 87015; 87070; 87077; 87101; 87116; 87186; 87205; 87206 ==

== ENCOUNTER → 2024-10-07 | Outpatient (CLI) | payer MEDICARE, OTHER, SELFPAY ==
[2024-10-07 14:32] LABS: Absolute Lymphocyte Count 16.58 X10^3/uL (0.83-4.51); Absolute Neutrophil Count 2.2 X10^3/uL (2.0-7.7); Basophil# 0.03 X10^3/uL; Basophil% 0.1 % (0-1); Eosinophil# 0.03 X10^3/uL; Eosinophils% 0.1 % (0-5); Hematocrit 28.7 % (40-54); Hemoglobin 9.1 g/dL (13.0-16.5); Lymphocyte # 16.58 X10^3/ul (0.83-4.51); Lymphocyte % 45.8 % (19-41); Mean Corp Hgb Conc 31.7 g/dL (32-36); Mean Corpuscular Hgb 45.3 pg (27.0-32.0); Mean Corpuscular Volume 142.8 fL (80-94); Mean Platelet Vol. 9.9 fl (6.2-12.0); Monocyte# 17.32 X10^3/uL; Monocyte% 47.8 % (0-10); NRBC Flagged by Analyzer 0.1 % (0-5); Neutrophil # 2.18 X10^3/uL (2.7-7.7); POSITIVE COUNT YES; POSITIVE DIFFERENTIAL YES; POSITIVE MORPHOLOGY YES; Platelet Count 223 K/mm3 (150-450); RBC Distribution Width CV 16.1 % (11.6-14.6); RBC Distribution Width SD 81.8 fl (35.1-43.9); Red Blood Count 2.01 M/mm3 (4.6-6.2)
[2024-10-07 15:06] LABS: Anisocytosis 1+; Atypical Lymphocyte 1+ %
[2024-10-07 15:07] LABS: Pathologist Review May foll
[2024-10-07 15:20] LABS: AST(SGOT) 20 U/L (<=37); Alanine Aminotransfer ALT/SGPT 13 U/L (<=46); Albumin, Serum 4.3 g/dL (3.4-4.8); Alkaline Phosphatase 98 U/L (40-129); Anion Gap 15 (5-15); BUN 32 mg/dL (4-19); BUN/Creat Ratio 16.1 RATIO (10-20); Calcium,Total 9.7 mg/dL (7.6-11.0); Carbon Dioxide 20.7 mmol/L (21.0-32.0); Chloride 104 mmol/L (98-108); Creatinine, Serum 2.01 mg/dL (0.70-1.20); EST Glomerular Filtration Rate 35 (>60); Ferritin 196 ng/mL (37-417); Globulin 2.1 g/dL (2.2-4.2); Glucose 103 mg/dL (70-99); Iron 112 ug/dL (65-175); Iron Binding Capacity,Total 283 ug/dL (250-450); Iron Binding Capacity,Unsat 171 ug/dL (228-428); Potassium 5.5 mmol/L (3.3-5.1); Protein, Total 6.4 g/dL (5.9-8.4); Sodium Level 140 mmol/L (133-145); Total Bilirubin 0.28 mg/dL (0.00-1.30); Vitamin D,25 Hydroxy 38.1 ng/mL (30-100)
[2024-10-07 15:52] LABS: White Blood Count 36.2 K/mm3 (4.4-11.0)
== END | disposition home or self-care (01) ==
LOC: LAB 12:39
PROVIDERS: PCP Family Medicine Geriatric Medicine; Referring Provider Family Medicine Geriatric Medicine; Visit Provider Family Medicine Geriatric Medicine
DX: I10 Essential (primary) hypertension (principal); E55.9 Vitamin D deficiency, unspecified; D64.9 Anemia, unspecified
CPT/HCPCS: 36415; 80053; 82306; 82728; 83540; 83550; 84443; 85025

== ENCOUNTER → 2024-10-13 | Outpatient (CLI) | payer MEDICARE, OTHER, SELFPAY ==
[2024-10-13 18:00] LABS: Anion Gap 14 (5-15); BUN 32 mg/dL (4-19); BUN/Creat Ratio 14.8 RATIO (10-20); Calcium,Total 9.1 mg/dL (7.6-11.0); Carbon Dioxide 21.1 mmol/L (21.0-32.0); Chloride 106 mmol/L (98-108); Glucose 84 mg/dL (70-99); Potassium 4.7 mmol/L (3.3-5.1)
== END | disposition home or self-care (01) ==
LOC: LAB 15:29
PROVIDERS: PCP Family Medicine Geriatric Medicine; Referring Provider Family Medicine Geriatric Medicine; Visit Provider Family Medicine Geriatric Medicine
DX: I10 Essential (primary) hypertension (principal)
CPT/HCPCS: 36415; 80048

== ENCOUNTER → 2024-10-13 | Outpatient (CLI) | payer MEDICARE, OTHER, SELFPAY ==
--- NOTE | 2024-10-13 14:50 | ART_ITS ---
Reason For Study Reason For Study: PVD Procedure A bilateral lower extremity continuous wave Doppler with analog waveform analysis,segmental pressures,and ankle brachial indexes without exercise. Left Segmental Pressures Left brachial= 124mmHg. Left posterior tibial artery = 189mmHg. Left dorsalis pedis artery = >254mmHg. Left digit = 72 mmHg. The left posterior tibial artery waveforms are biphasic. The left dorsalis pedis waveforms are triphasic. Right Segmental Pressures Right brachial= 121mmHg. Right posterior tibial artery = 170mmHg. Right dorsalis pedis artery = 82mmHg. Right digit = 58 mmHg. The right posterior tibial artery waveforms are monophasic. The right dorsalis pedis waveforms are monophasic. Indices The right ankle brachial index by the posterior tibial artery is 1.37. The right ankle brachial index by the dorsalis pedis is 0.66. The right digital-brachial index is 0.47. The left ankle brachial index by the posterior tibial artery is 1.52. The left ankle brachial index by the dorsalis pedis is N/C. The left digital-brachial index is 0.58. VL/Lower Ext Art Exam w/o Exercis Interpretation Summary Right RAMIN 1.37, likely artificially elevated. Doppler/PVR waveforms of the righ t ankle moderately diminished at rest. Left RAMIN 1.52, normal. Doppler/PVR waveforms of the left leg normal at rest. TB I diminished, pedal/digit disease vs spasm. Ordering Physician: Monisha Edmonds Referring Physician: Leighton Orozco Chi Performed By: Steve Harris RVT
--- OUTSIDE RECORDS SUMMARY | 2024-10-13 22:51 | XMS RPT_ITS | CCD ---
Author Organization [facility] Care Team Providers Care Instrumentation Engineering Technician Name Role Phone Efe Suarez Unavailable Unavailable Sandi Duttno Unavailable Unavailable Sandi Dutton Unavailable Unavailable Ulises Ramos DO Primary Care Provider [phone] Wilton CARVER, Louie Beltre Unavailable UnavailUlises Garcia DO Primary Care Provider [phone] Louie Silva RN Unavailable UnavailUlises Garcia DO Primary Care Provider [phone] Louie Silva RN Unavailable UnavailDr. Aleja Weaver Primary Care JAKOB Conway Attending Unavailable Segundo CARVER, Yuko Unavailable Unavailable Louie CARVER, Wilton Beltre Unavailable UnavailUlises Garcia DO Primary Care Provider [phone] Louie CARVER, Wilton Beltre Unavailable Unavailmarbin Raymond RN, Yuko Unavailable Unavailable Louie CARVER, Wilton Beltre Unavailable Unavailmarbin Dale MD, Fanchantelle Unavailable Maddie White RN Unavailable Unavailable Chito COLINDRES, Fanchantelle Unavailable Chito COLINDRES, Fang Unavailable Aleja Uribe MD Primary Care Provider MELINDA KRAFT Attending ALEJA Gonzalez Primary Care Unavailable ULISES RAMOS DO Primary Care Physician SANDI DUTTON Primary Care Unavailable ULISES RAMOS DO Primary Care Unavailable TRISHA COLINDRES, DR SAM Wang Attending Jeramy JOHNSON MD, DR PEREYRA Attending Unavailab le RICHARD DO, ULISES Primary Care Unavailable Richard DO, Ulises Aguayo Primary Care Provider SERENE DO~[id number], SERENE NHAN Atten carlos manuel Unavailable SAV COLINDRES, АНДРЕЙ Haro Consulting Unavailable MON DO, ARY Hernandez Procedure Practitioner Vita vailable MON DO~[id number], MEG Hernandez Admittin g Unavailable ULISES RAMOS Primary Care Unavailable SAV COLINDRES, АНДРЕЙ Haro Consulting Unavailable ZAHIDA COLINDRES, АНДРЕЙ Haro Consulting Unavailmarbin TEAGUE MD, АНДРЕЙ Haro Consulting Unavailmarbin LOVELACE MD, NALDO Beltre Consulting Unavailable ALBANIA COLINDRES, NALDO Beltre Consulting Unavailable JAYDEN COLINDRES, ERNIE Consulting Unavailable JAYDEN COLINDRES, ERNIE Consulting Unavailable ULISES RAMOS Primary Care Unavailable ROBERT COLINDRES~[id number], ROBERT cannon Unavailable ROBERT COLINDRES~[id number], ROBERT horowitz Unavailable ULISES RAMOS Primary Care Unavailable ALBANIA COLINDRES~[id number], [place] Andersonittnisreen lockhart Unavailable [place] COLINDRES~[id number], [place] Beltre Attendin g Unavailable ULISES RAMOS Primary Care Unavailable LE DO~[id number], RAUDEL ARIZMENDI Admitting Jeramy moore LE DO~[id number], RAUDEL ARIZMENDI Attending Sandi Enamorado MD Primary Care Provider Richard SIERRA, Ulises Aguayo Primary Care Provider [phone] Louie CARVER, Wilton Beltre Unavailable UnavailLeighton Justin Chi Primary Care Provider HORTENCIA GALLARDO Attending Unavailable [...] Care Unavailable RICHARD, ULISES AGUAYO Referring Unavailable ERNESTO, LEIGHTON CHI Primary Care Unavailable PANTERA STEINER Attending Unavailable RICHARD, ULISES AGUAYO Referring Unavailable RICHARD, ULISES AGUAYO Primary Care Unavailable RICHARD, ULISES GAUAYO Referring Unavailable RICHARD, ULISES AGUAYO Primary Care Unavailable RICHARD, ULISES AGUAYO Referring Unavailable ERNESTO, LEIGHTON CHI Primary Care Unavailable RICHARD, ULISES AGUAYO Referring [...] Unavailable RICHARD, ULISES AGUAYO Primary Care Unavailable ERNESTO COLINDRES, DR NAVA Primary Care Physician ERNESTO COLINDRES, DR NAVA Primary Care Unavailable YUDY COLINDRES, DIMITRY Sharma Attending Unavail able ENIO COLINDRES, REJI Consulting Unavailable ERNESTO COLINDRES, DR NAVA Primary Care Unavailable ERNESTO COLINDRES, DR NAVA Consulting Unavailable FLORENCIO COLINDRES, ANS Attending Unavailable ENIO COLINDRES, REJI Admitting Unavailable MATT RAMSEY DO Consulting Unavailable HOLDEN ALEJANDRO DO Consulting Unavailable АНДРЕЙ MOON MD Consulting Unavailable ERNESTO COLINDRES, DR NAVA Primary Care Unavailable COSME COLINDRES, JEYSON Consulting Unavailable KRISTIN MAC MD Attending Unavailable THERESA KENNEDY DO Admitting Unavailable CARLOS MENDOZA MD Consulting Unavailable Ernesto, Leighton Chi Primary Care Unavailable Ernesto, Leighton Chi Attending Unavailable Ernesto, Leighton Chi Referring Unavailable Ernesto, Leighton Chi Primary Care Unavailable Oumar, Eric Attending Unavailable Oumar, Eric Admitting Unavailable Gregg Mcdonnell Consulting Unavailable Ernesto, Leighton Chi Primary Care Unavailable David Lainez Attending Unavailmarbin e David Lainez Referring Unavailabl e Ernesto, Leighton Chi Primary Care Unavailable Ernesto, Leighton Chi Attending Unavailable Ernesto, Leighton Chi Admitting Unavailable Ernesto, Leighton Chi Primary Care Unavailable Ernesto, Leighton Chi Attending Unavailable Lavinia Pascual Referring Unavailable Lavinia Pascual Attending Unavailable Ernesto, Leighton Chi Primary Care Unavailable Zaira Denis Consulting Unavailable Kathy, Nhan S Consulting Unavailable Ernesto, Leighton Chi Primary Care Unavailable Ernesto, Leighton Chi Attending Unavailable Ernesto, Leighton Chi Referring Unavailable Ernesto, Leighton Chi Primary Care Unavailable Ernesto, Leighton Chi Attending Unavailable Ernesto, Leighton Chi Referring Unavailable Ernesto, Leighton Chi Primary Care Unavailable Zaira Denis Attending Unavailable Ernesto, Leighton Chi Primary Care Unavailable David Lainez Attending Unavailabl e Wartmann, Christopher Referring Unavailabl e Ernesto, Leighton Chi Primary Care Unavailable Ernesto, Leighton Chi Attending Unavailable Ernesto, Leighton Chi Referring Unavailable Ernesto, Leighton Chi Primary Care Unavailable Ernesto, Leighton Chi Attending Unavailable Ernesto, Leighton Chi Referring Unavailable Ernesto, Leighton Chi Primary Care Unavailable Ernesto, Leighton Chi Attending Unavailable Ernesto, Leighton Chi Primary Care Unavailable Isckarus, Mansour Referring Unavailable IsckarusLavinia Attending Unavailable Ernesto, Leighton Chi Primary Care Unavailable Ernesto, Leighton Chi Attending Unavailable Ernesto, Leighton Chi Referring Unavailable Jabour Vincent Referring Unavailable Ernesto, Leighton Chi Primary Care Unavailable LelabourLinaent Attending Unavailable Ernesto, Leighton Chi Primary Care Unavailable Saxton, Quentin Referring Unavailable Saxton, Quentin Admitting Unavailable Edmonds, Monisha Attending Unavailable Merlin, Quentin Consulting Unavailable Ernesto, Leighton Chi Primary Care Unavailable Ernesto, Leighton Chi Admitting Unavailable Carmelo Daly Attending Unavailable Gregg Mcdonnell Consulting Unavailable Ernesto, Leighton Chi Referring Unavailable Ratna Macias Consulting Unavailable Ernesto, Leighton Chi Consulting Unavailable Edmonds, Monisha Referring Unavailable Ernesto, Leighton Chi Primary Care Unavailable Ernesto, Leighton Chi Consulting Unavailable Ernesto, Leighton Chi Admitting Unavailable Florencio Decker Attending Unavailable Ratna Macias Attending Unavailable Ernesto, Leighton Chi Primary Care Unavailable JuliocesarkarusNaiour Attending Unavailable Ernesto, Leighton Chi Referring Unavailable Ernesto, Leighton Chi Primary Care Unavailable Saxton Quentin Attending Unavailable Ernesto, Leighton Chi Referring Unavailable Ernesto, Leighton Chi Primary Care Unavailable IsckarusNaiour Attending Unavailable Ernesto, Leighton Chi Referring Unavailable Ernesto, Leighton Chi Primary Care Unavailable Ernesto, Leighton Chi Attending Unavailable Ernesto, Leihgton Chi Primary Care Unavailable Ernesto, Leighton Chi Attending Unavailable Ernesto, Leighton Chi Primary Care Unavailable Ernesto, Leighton Chi Attending Unavailable Ernesto, Leighton Chi Referring Unavailable Edmonds, Monisha Referring Unavailable Edmonds, Monisha Attending Unavailable Ernesto, Leighton Chi Primary Care Unavailable Ernesto, Leighton Chi Primary Care Unavailable Ernesto, Leighton Chi Attending Unavailable Ernesto, Leighton Chi Referring Unavailable Ernesto, Leighton Chi Primary Care Unavailable Edmonds, Monisha Attending Unavailable Edmonds, Monisha Referring Unavailable Ernesto, Leighton Chi Primary Care Unavailable Ernesto, Leighton Chi Attending Unavailable Ernesto, Leighton Chi Referring Unavailable Ernesto, Leighton Chi Primary Care Unavailable Ernesto, Leighton Chi Attending Unavailable Ernesto, Leighton Chi Referring Unavailable Ernesto, Leighton Chi Primary Care Unavailable Meeta, Jerardo Attending Unavailable Ernesto, Leighton Chi Primary Care Unavailable Quentin Montalvo Attending Unavailable Ernesto, Leighton Chi Primary Care Unavailable Ernesto, Leighton Chi Referring Unavailable Ernesto, Leighton Chi Attending Unavailable Ernesto, Leighton Chi Primary Care Unavailable Meeta, Jerardo Attending Unavailable Meeta, Jerardo Referring Unavailable Ernesto, Leighton Chi Primary Care Unavailable Zaira Denis Attending Unavailable Zaira Denis Consulting Unavailable Ernesto, Leighton Chi Primary Care Unavailable Ernesto, Leighton Chi Attending Unavailable Ernesto, Leighton Chi Referring Unavailable Jabour, Vincent Attending Unavailable Jabour, Vincent Referring Unavailable Ernesto, Leighton Chi Primary Care Unavailable Ernesto, Leighton Chi Primary Care Unavailable Ernesto, Leighton Chi Attending Unavailable Ernesto, Leighton Chi Primary Care Unavailable Edmonds, Monisha Attending Unavailable Edmonds, Monisha Referring Unavailable Ernesto, Leighton Chi Primary Care Unavailable Edmonds, Monisha Attending Unavailable Edmonds, Monisha Referring Unavailable Ernesto, Leighton Chi Primary Care Unavailable Ernesto, Leighton Chi Attending Unavailable Ernesto, Leighton Chi Admitting Unavailable Ernesto, Leighton Chi Referring Unavailable Eric Oseguera Attending Unavailable Ernesto, Leighton Chi Primary Care Unavailable Tripp Rodriguez Consulting Unavailable Jopperi, Quentin Admitting Unavailable Adeli, Amir Consulting Unavailable Hindulela, Tiesha Consulting Unavailable Ayaan, Monisha Consulting Unavailable Zha, Marley Consulting Unavailable Bro, Abiodun Consulting Unavailable Beverly, Brigette Consulting Unavailable GorgetaMarek aguilar Consulting Unavailable Pantera Torres Consulting Unavailable Albino Quiroz Consulting Unavailable Eloise Fraser Consulting Unavailable Nakul Rojo Consulting Unavailable Elvie Otero Consulting Unavailable Ena Saunders Consulting Unavailable Alton Montilla Consulting UnavailDeonte Bess Consulting Unavailable Latrell Do Consulting Unavailable Chadd Rowland Consulting Unavailable Maribel Denis Consulting Unavailable Melquiades Elizabeth Consulting Unavailable Ari Quentin Consulting Unavailable Gregg Mcdonnell Consulting Unavailable Manohar Au Consulting Unavailable Ernesto, Leighton Chi Primary Care Unavailable Ernesto, Leighton Chi Attending Unavailable Ernesto, Leighton Chi Referring Unavailable Ernesto, Leighton Chi Primary Care Unavailable Kathy, Nhan S Attending Unavailable Kathy, Nhan S Referring Unavailable Ernesto, Leighton Chi Primary Care Unavailable Saxton, Quentin Attending Unavailable Saxton, Quentin Referring Unavailable Saxton, Quentin Admitting Unavailable Ernesto, Leighton Chi Admitting Unavailable Ernesto, Leighton Chi Primary Care Unavailable Ernesto, Elighton Chi Attending Unavailable Gregg Mcdonnell Consulting Unavailable Ratna Macias Consulting Unavailable Lavinia Pascual Attending Unavailable Ernesto, Leighton Chi Primary Care Unavailable Ernesto, Leighton Chi Referring Unavailable Ernesto, Leighton Chi Primary Care Unavailable Ernesto, Leighton Chi Attending Unavailable Ernesto, Leighton Chi Referring Unavailable Deo Cui Attending Unavailable Ernesto, Leighton Chi Primary Care Unavailable Ratna Macias Attending Unavailable Ernesto, Leighton Chi Referring Unavailable Ernesto, Leighton Chi Primary Care Unavailable Jocelyne Rodriguez Attending Unavailable Ernesto, Leighton Chi Primary Care Unavailable Monisha Edmonds Attending Unavailable Ernesto, Leighton Chi Referring Unavailable ThomasKalinIdris Attending Unavailable Ernesto, Leighton Chi Primary Care Unavailable Oumar, Eric Referring Unavailable Ernesto, Leighton Chi Primary Care Unavailable ThomasFavian mirelesl Attending Unavailable Ernesto, Leighton Chi Primary Care Unavailable Quentin Boyer Attending Unavailable Ernesto, Leighton Chi Referring Unavailable Tripp Rodriguez Consulting Unavailable Ernesto, Leighton Chi Primary Care Unavailable Manohar Au Attending Unavailable Ari Quentin Admitting Unavailable Adeli, Amir Consulting Unavailable Hinduja, Tiesha Consulting Unavailable Ayaan Monisha Consulting Unavailable Zha, Marley Consulting Unavailable Bro, Abiodun Consulting Unavailable Beverly, Brigette Consulting Unavailable Bittar Marek Consulting Unavailable Pantera Torres Consulting Unavailable Albino Quiroz Consulting Unavailable Eloise Fraser Consulting Unavailable Nakul Rojo Consulting Unavailable Elvie Otero Consulting Unavailable Ena Saunders Consulting Unavailable Alton Montilla Consulting UnavailDeonte Bess Consulting Unavailable Latrell Do Consulting Unavailable Chadd Rowland Consulting Unavailable Maribel Denis Consulting Unavailable Melquiades Elizabeth Consulting Unavailable Quentin Chapman Consulting Unavailable aMnohar Au Consulting Unavailable Ernesto, Leighton Chi Primary Care Unavailable Oumar, Eric Attending Unavailable Gregg Mcdonnell Consulting Unavailable Ernesto, Leighton Chi Primary Care Unavailable Oumar, Eric Referring Unavailable Oumar, Eric Admitting Unavailable Alexander Manjarrez Attending Unavailable Gregg Mcdonnell Consulting Unavailable Oumar, Eric Consulting Unavailable Oumar, Eric Attending Unavailable Manohar Au Attending Unavailable Tripp Rodriguez Consulting Unavailable Ernesto, Leighton Chi Primary Care Unavailable Jopperi, Quentin Admitting Unavailable Adeli, Amir Consulting Unavailable Hinduja, Tiesha Consulting Unavailable Ayaan, Monisha Consulting Unavailable Zha, Marley Consulting Unavailable Bro, Abiodun Consulting Unavailable Beverly, Brigette Consulting Unavailable Marek Beyer Consulting Unavailable Pantera Torres Consulting Unavailable Albino Quiroz Consulting Unavailable Eloise Fraser Consulting Unavailable Nakul Rojo Consulting Unavailable Elvie Otero Consulting Unavailable Ena Saunders Consulting Unavailable Alton Montilla Jasen Consulting UnavailDeonte Bess Consulting Unavailable Latrell Do Consulting Unavailable Chadd Rowland Consulting Unavailable Maribel Denis Consulting Unavailable Melquiades Elizabeth Consulting Unavailable Jopperi, Quentin Consulting Unavailable Gregg Mcdonnell Consulting Unavailable Manohar Au Consulting Unavailable Oumar, Eric Attending Unavailable Oumar, Eric Consulting Unavailable Ernesto, Leighton Chi Primary Care Unavailable Jopperi, Quentin Admitting Unavailable Jopperi, Quentin Consulting Unavailable Jopperi, Quentin Attending Unavailable ThomasKalinIdris Attending Unavailable Ernesto, Leighton Chi Primary Care Unavailable Ernesto, Leighton Chi Referring Unavailable Ernesto, Leighton Chi Primary Care Unavailable Jocelyne Rodriguez Attending Unavailable Ernesto, Leighton Chi Primary Care Unavailable Monisha Edmonds Attending Unavailable Ernesto, Leighton Chi Referring Unavailable Ernesto, Leighton Chi Primary Care Unavailable ThomasIdris mireles Attending Unavailable Ernesto, Leighton Chi Primary Care Unavailable Yvette Shnie Attending Unavailable Ernesto, Leighton Chi Referring Unavailable Jocelyne Rodriguez Attending Unavailable Ernesto, Leighton Chi Primary Care Unavailable ThomasKalinIdris Attending Unavailable Ernesto, Leighton Chi Primary Care Unavailable Ernesto, Leighton Chi Primary Care Unavailable Lavinia Pascual Attending Unavailable Ernesto, Leighton Chi Referring Unavailable Ernesto, Leighton Chi Primary Care Unavailable Jocelyne Rodriguez Attending Unavailable Ernesto, Leighton Chi Primary Care Unavailable Lavinia Pascual Attending Unavailable Ernesto, Leighton Chi Referring Unavailable Ernesto, Leighton Chi Primary Care Unavailable Annmarie Moralez Attending Unavailable Ernesto, Leighton Chi Referring Unavailable Ernesto, Leighton Chi Primary Care Unavailable Jocelyne Rodriguez Attending Unavailable Ernesto, Leighton Chi Primary Care Unavailable Jocelyne Rodriguez Attending Unavailable Monisha Edmonds Attending Unavailable Ernesto, Leighton Chi Primary Care Unavailable Ernesto, Leighton Chi Referring Unavailable Ernesto, Leighton Chi Primary Care Unavailable Ernesto, Leighton Chi Referring Unavailable Blade Terrazas Attending Unavailable Ernesto, Leighton Chi Primary Care Unavailable Saxton, Quentin Consulting Unavailable Saxton, Quentin Attending Unavailable Saxton, Quentin Referring Unavailable Merlin, Quentin Admitting Unavailable Ernesto, Leighton Chi Attending Unavailable Ernesto, Leighton Chi Primary Care Unavailable Ernesto, Leighton Chi Primary Care Unavailable Ernesto, Leighton Chi Attending Unavailable Ernesto, Leighton Chi Referring Unavailable Allergies Allergy Classification Reported Allergen(s) Allergy Type Date of Onset Reaction(s) Facility (20 sources) Penicillin; Translations: [penicillin] Drug Allergy 7 Hives [facility] (20 sources) Doxycycline; Translations: [doxycycline] Drug Allergy 2 Intolerance, Other [facility] Work Phone: (20 sources) Penicillin V; Translations: [PENICILLIN V POTASSIUM] Drug Allergy 2 Other: See Comments [facility] (3 sources) levoFLOXacin; Translations: [LEVOFLOXACIN] Drug Allergy 3 Unknown [facility] Work Phone: (2 sources) Penicillins; Translations: [PENICILLINS] Drug Allergy 3 Unknown [facility] Work Phone: (1 source) Doxycycline Drug Allergy [facility] Repository (1 source) Penicillins Drug Allergy 6 Hives, Other, Unknown [facility] (1 source) Doxycycline Drug Allergy 5 [facility] Repository (1 source) Penicillins Drug allergy (disorder) 5 [facility] Repository Medications Current Medications Medication Drug Class(es) Dates Sig (Normalized) Sig (Original) acetaminophen 325 mg / HYDROcodone bitartrate 5 mg oral tablet (1 source) Opioid Agonist Start: 05-05-2023 End: 05-10-2023 take 1 tablet by mouth every six hours [place] 325- 5 mg oral tablet Dose = 1 tab(s), Oral, q6h, X 5 day(s), # 20 tab(s), 0 Refill(s), Fracture of transverse process of lumbar vertebra, 90.9 Start Date: 05/05/23 Stop Date: 05/10/23 Status: Ordered acetaminophen 325 mg / oxyCODONE hydrochloride 5 mg oral tablet (19 sources) Opioid Agonist Start: 05-23-2024 End: 05-30-2024 take 1 tablet by mouth every four hours as needed for pain Percocet 5 mg-325 mg oral tablet Dose = 1 tab(s), Oral, q4h, PRN as needed for pain, X 7 day(s), # 28 tab(s), 0 Refill(s), Pharmacy: [facility]/pharmacy #[id number], Intertrochanteric fracture of right hip, 177.8, cm, 05/02/24 0:37:00 EST, Height, 81.8, kg, 05/23/24 10:25:00 EST, Dosing Weight Start Date: 05/23/24 Stop Date: 05/30/24 Status: Ordered Quantity: 28.0 Unit: tab(s) Repeat number: 1 Indication: Displaced intertrochanteric fracture of right femur, initial encounter for closed fracture Start: 01-21-2022 End: 03-27-2022 take 1 tablet by mouth every six hours as needed oxyCODONE-acetaminophen (PERCOCET) 5-325 mg tablet Take 1 tablet by mouth every 6 hours as needed. 0 01/21/2022 03/27/2022 Discontinued (Course of therapy completed) Comment on above: Take 1 tablet by bear th every 6 hours as needed. [id number] actuat albuterol 0.09 mg/actuat metered dose [...] MOUTH EVERY 6 HOURS NEEDED FOR WHEEZING albuterol MDI (90 mcg/inh) CFC free inhalation aerosol (3 sources) Start: take 1 puff(s) by inhalation every four hours as needed for wheezing albuterol MDI (90 mcg/inh) CFC free inhalation aerosol 1 puff(s), Inhalation, q4h, PRN as needed for shortness of breath or wheezing, # 6.7 gram(s), 0 Refill(s) Start Date: 05/23/24 Status: Ordered Quantity: 6.7 Unit: g Repeat number: 1 Start: 05-03-2024 End: 06-02-2024 take 2 doses by inhalation every six hours as needed for wheezing albuterol MDI (90 mcg/inh) CFC free inhalation aerosol Dose : 180 mcg = 2 inh, Inhalation, q6h, PRN as needed for wheezing, # 18 gram(s), 0 Refill(s) Start Date: 05/03/24 Stop Date: 06/02/24 Status: Ordered Quantity: 18.0 Unit: g Repeat number: 1 allopurinol 100 mg oral tablet (1 source) Xanthine Oxidase Inhibitor Start: 08-01-2022 take 1 tablet by mouth once daily allopurinol (Zyloprim) 100 mg tablet Take 1 tablet (100 mg) by mouth once daily. 0 08/01/2022 Active amLODIPine 5 mg oral tablet (20 sources) Dihydropyridine Calcium Channel Freda Start: 05-05-2023 amLODIPine 5 mg oral tablet 0 Refill(s) Start Date: 05/05/23 Status: Ordered Start: 03-28-2022 take 1 tablet by bear th once daily amLODIPine (NORVASC) 10 mg tablet Take 1 tablet by mouth once daily. 90 tablet 3 03/28/2022 Active Start: 09-05-2020 End: 09-12-2021 take 1 tablet by mouth once daily amLODIPine (NORVASC) 10 mg tablet Take 1 tablet by mouth once daily. 90 tablet 3 09/05/2020 09/12/2021 Discontinued Comment on above: Take 1 tablet by bear th once daily. ascorbic acid 2000 mg oral tablet (3 sources) Vitamin C Start: take 1 dose by mouth once daily Vitamin C Dose : 2,000 mg =, Oral, qDay, 0 Refill(s) Start Date: 05/02/24 Status: Ordered Repeat number: 1 atropine sulfate 0.025 mg / diphenoxylate hydrochloride [...] above: Take 1 tablet by bear th four times daily as needed for up [...] by mouth three times daily as needed. Breztri Aerosphere 160 mcg-9 mcg-4.8 mcg/inh inhalation aerosol (2 sources) Start: 05-03-2024 take 1 dose by mouth twice daily Breztri Aerosphere 160 mcg-9 mcg-4.8 mcg/inh inhalation aerosol Dose = 2 puff(s), Inhalation, BID, rinse mouth and throat after use, # 10.7 gram(s), 0 Refill(s) Start Date: 05/03/24 Status: Ordered Quantity: 10.7 Unit: g Repeat number: 1 calcitriol 0.80659 mg oral capsule (20 sources) Vitamin D3 Analog Start: 05-05-2023 take 1 capsule by mouth once daily calcitriol 0.25 mcg oral capsule Dose : 50 mcg =, Oral, qDay, 0 Refill(s) Start Date: 05/05/23 Status: Ordered Repeat number: 1 Start: 01-11-2023 calcitriol (Ro caltrol) 0.25 mcg capsule 1 capsule (0.25 mcg) 3 times a week. 0 01/11/2023 Active Start: 01-18-2021 take 1 capsule by [facility] once daily calcitriol (ROCALTROL) 0.25 mcg capsule Take 0.25 mcg by mouth once daily. 0 01/18/2021 Suspended Comment on above: Take 0.25 mcg by bear th once daily. calcium carbonate 1500 mg oral tablet (20 sources) Start: 05-02-2024 calcium (as carbonate) 600 mg oral tablet Dose : 600 mg = 1 tab(s), Oral, qDay, 0 Refill(s) Start Date: 05/02/24 Status: Ordered Repeat number: 1 Start: 09-13-2020 take 1 tablet by bera th twice daily as needed calcium carbonate (CALCIUM ANTACID) 500 mg chew One po bid prn gastritis 60 tablet 5 09/13/2020 Suspended take 1 tablet by bear th in the morning calcium carbonate (Os-Kentrell) 600 MG tablet Take 1 tablet by mouth in the morning and 1 tablet in the evening. Take before meals. Active calcium carbonat e (Tums) 500 MG chewable tablet Chew 1 tablet daily. Active take 2 tablets by mo uth once daily calcium carbonate (CALCIUM 600 ORAL) Take 2 tablets by mouth once daily. 0 Active Comment on above: One po bid prn gastr itis cefdinir 300 mg oral capsule (2 sources) Cephalosporin Antibacterial Start: 05-03-2024 End: 05-06-2024 cefdinir 300 mg oral capsule Dose : 300 mg = 1 cap(s), Oral, q12h, X 3 day(s), # 6 cap(s), 0 Refill(s), 05/06/24 9:29:00 AM EST, 85.9 Start Date: 05/03/24 Stop Date: 05/06/24 Status: Ordered Quantity: 6.0 Unit: cap(s) Repeat number: 1 Start: 05-05-2023 cefdinir 300 m g oral capsule 0 Refill(s), 90.9 Start Date: 05/05/23 Status: Ordered clarithromycin 500 mg oral tablet (9 sources) Macrolide Antimicrobial Start: 06-05-2022 End: 06-15-2022 take 1 tablet by mouth every twelve [...] Ordered CPAP (20 sources) CPAP Active CPAP cyclobenzaprine hydrochloride 10 mg oral tablet (3 sources) Muscle Relaxant Start: 05-02-2024 cyclobenzaprine 10 mg oral tablet Dose : 10 mg = 1 tab(s), Oral, TID, PRN Muscle spasm, TAKE 1 TABLET BY MOUTH THREE TIMES DAILY Start Date: 05/02/24 Status: Ordered Repeat number: 1 0.4 ml enoxaparin sodium 100 mg/ml prefilled [...] Start: 02-12-2023 ergocalciferol (Vitamin D-2) 1.25 MG (70116 UT) capsule Start: 09-14-2020 ergocalciferol 50,000 unit capsule (VITAMIN D2, DRISDOL) once every month. 09/14/2020 Active End: 02-20-2023 ergocalciferol (Vitamin D-2) 50 MCG (2000 UT) capsule capsule Comment on above: once every month. escitalopram 5 mg oral tablet (6 sources) Serotonin Reuptake Inhibitor Start: 05-05-2023 escitalopram 5 mg oral tablet Dose : 5 mg = 1 tab(s), Oral, qDay, 0 Refill(s) Start Date: 05/05/23 Status: Ordered Repeat number: 1 Start: 01-10-2023 take 1 tablet by bear th once daily escitalopram (Lexapro) 5 mg tablet Take 1 tablet (5 mg) by mouth once daily. 0 01/10/2023 Active 1 ml evolocumab 140 mg/ml auto-injector (20 sources) PCSK9 Inhibitor Start: 05-23-2024 inject 1 dose by subcutaneous injection every month Repatha SureClick 140 mg/mL subcutaneous solution Dose : 140 mg =, Subcutaneous, qmonth, rotate injection sites Start Date: 05/23/24 Status: Ordered Repeat number: 1 Start: 07-18-2023 End: 11-23-2023 inject 1 dose [...] PEN SUBCUTANEOUSLY EVERY TWO WEEKS 2 mL 04/10/2022 07/11/2022 Discontinued Start: 04-03-2021 evolocumab (RE [...] SUBCUT ANEOUSLY ONCE EVERY MONTH ferrous sulfate 200 mg oral tablet (3 sources) Start: 05-23-2024 ferrous sulfate 200 mg (65 mg elemental iron) oral tablet Dose : 200 mg = 1 tab(s), Oral, Daily, # 30 tab(s), 0 Refill(s) Start Date: 05/23/24 Status: Ordered Quantity: 30.0 Unit: tab(s) Repeat number: 1 Start: 05-02-2024 ferrous sulfate, as mg of FE, ([place]-In-Marianela) 75 (15 Fe) MG/ML drops Take 15 mg by mouth daily. Active fluticasone propionate 0.05 mg/actuat metered dose nasal spray (20 sources) Corticosteroid Start: 05-05-2023 fluticasone pr oprionate NASAL 50 mcg/ spray 0 Refill(s) Start [...] (20 sources) Anticholinergic, Corticosteroid, beta2-Adrenergic Agonist Start: 12-12-19 take 1 puff(s) by inhalation once daily fluticasone-umecli din-vilanter (TRELEGY ELLIPTA) 100-62.5-25 mcg inhalation powder Inhale 1 Puff as instructed once daily. 30 Each 1 12/11/2022 Active Comment on above: Inhale 1 Puff as ins tructed once daily. 12 hr guaiFENesin 600 mg extended release oral tablet (1 source) Start: 05-03-19 End: 05-13-19 guaiFENesin 600 mg oral tablet, extended release Dose : 600 mg = 1 tab(s), Oral, BID, X 10 day(s), # 20 tab(s), 0 Refill(s), 05/13/24 9:29:00 AM EST Start Date: 05/03/24 Stop Date: 05/13/24 Status: Ordered Quantity: 20.0 Unit: tab(s) Repeat number: 1 hydroxyurea 500 mg oral capsule (20 sources) Antimetabolite Start: 05-02-19 hydroxyurea 500 mg oral capsule Dose : 1,500 mg = 3 cap(s), Oral, Fri//Fri//Fri/ Fri, EXCEPT FOR SUNDAYS Start Date: 05/02/24 Status: Ordered Repeat number: 1 Start: 12-11-2022 take 2 capsules by m outh once [...] 400 mg oral tablet (20 sources) Start: 05-02-19 magnesium oxide 400 mg oral tablet Dose : 800 mg = 2 tab(s), Oral, qDay Start Date: 05/02/24 Status: Ordered Repeat number: 1 Start: 04-18-2021 End: 05-15-2022 magnesium oxide (MAG-OX) 400 mg (241.3 mg magnesium) tablet Take 0.5 tablets by mouth once daily. 0.5 tablet 90 tablet 3 05/15/2022 Active Comment on above: Take 1 tablet by bear th once daily Take 0.5 tablets by mouth once daily. 0.5 tablet modafinil 200 mg oral tablet (11 sources) Sympathomimetic-like Agent Start: 3 End: 3 take 1 tablet by mouth once daily modafinil (PROVIGIL) 200 mg tablet Indications: sleepiness due to obstructive sleep apnea Take 1 tablet by mouth once daily for 30 days. 30 tablet 0 11/21/2022 12/21/2022 Active Comment on above: Take 1 tablet by bear once daily for 30 days. Take 200 mg by mouth once daily. mupirocin 0.02 mg/mg topical ointment (1 source) RNA Synthetase Inhibitor Antibacterial Start: 3 mupirocin (Bactroban) 2 % ointment Apply topically once daily. 0 09/20/2022 Active octreotide 20 mg injection (20 sources) Somatostatin Analog Start: 2 End: 3 octreotide LAR 20 mg depot (monthly) injection (SandoSTATIN LAR) Comment on above: Inject 20 mg intramu scularly once every month. omeprazole 40 mg delayed release oral capsule (20 sources) Proton Pump Inhibitor Start: 5 omeprazole 40 mg oral delayed release capsule Dose : 40 mg = 1 cap(s), Oral, qDay, TAKE 1 CAPSULE BY MOUTH ONCE DAILY Start Date: 05/02/24 Status: Ordered Repeat number: 1 Start: 08-01-2021 End: 10-17-2022 take 1 capsule by mouth once daily omeprazole (PRILOSEC) 40 mg capsule Take 1 capsule by mouth once daily 90 capsule 3 10/17/2022 Active Start: 01-29-2021 End: 08-01-2021 take 1 capsule by mouth twice daily omeprazole (PRILOSEC) 20 mg capsule Take 1 capsule by mouth twice daily 60 capsule 0 07/26/2021 08/01/2021 Discontinued take 1 capsule by mo ut once daily omeprazole (PriLOSEC) [address] capsule Take 20 mg by mouth daily. Active Comment on above: Take 1 capsule by mo ut twice daily Take 1 capsule by mo ut once daily. Take 1 capsule by mo uth once daily ondansetron 8 mg oral tablet (1 source) Serotonin-3 Receptor Antagonist Start: 05-23-2024 ondansetron 8 mg oral tablet Dose : 8 mg = 1 tab(s), Oral, Once, PRN Nausea, mild, # 10 tab(s), 0 Refill(s) Start Date: 05/23/24 Status: Ordered Quantity: 10.0 Unit: tab(s) Repeat number: 1 polyethylene glycol 3350 340407 mg / potassium chloride 2970 mg / sodium bicarbonate 6740 mg / sodium chloride 5860 mg / sodium sulfate 51796 mg powder for oral solution (18 sources) Osmotic Laxative Start: 11-27-2021 End: 03-27-2022 GAVILYTE-G 236-22.74-6.74 -5.86 gram suspension predniSONE 20 mg oral tablet (20 sources) Start: 05-03-2024 End: 05-06-2024 predniSONE 20 mg oral tablet Dose : 40 mg = 2 tab(s), Oral, qDayM, X 3 day(s), # 6 tab(s), 0 Refill(s), 05/06/24 9:29:00 AM EST Start Date: 05/03/24 Stop Date: 05/06/24 Status: Ordered Quantity: 6.0 Unit: tab(s) Repeat number: 1 Start: 05-06-2022 End: 02-20-2023 take 1 tablet by mouth [...] 1 tablet by bear th twice daily. Repatha Prefilled Syringe (1 source) Start: 05-23-2024 Repatha Prefilled Syringe qmonth, 0 Refill(s) Start Date: 05/23/24 Status: Ordered Repeat number: 1 rivaroxaban 10 mg oral tablet (4 sources) Factor Xa Inhibitor Start: 05-02-2024 Xarelto 10 mg oral tablet Dose : 10 mg = 1 tab(s), Oral, qHS, # 90 tab(s), 0 Refill(s), 85.9 Start Date: 05/02/24 Status: Ordered Quantity: 90.0 Unit: tab(s) Repeat number: 1 take 1 tablet by mouth once phuong y rivaroxaban (Xarelto) 10 MG tablet Take 1 tablet by mouth daily. Active sodium bicarbonate 650 mg oral tablet (20 sources) Start: 12-11-2022 End: 02-20-2023 take 1 tablet by mouth twice daily sodium bicarbonate 650 mg tablet Take 1 tablet by mouth twice daily. 60 tablet 1 12/11/2022 Active Comment on above: Take 1 tablet by bear twice daily. sulfamethoxazole 800 mg / trimethoprim 160 mg oral tablet (8 sources) Dihydrofolate Reductase Inhibitor Antibacterial, Sulfonamide Antimicrobial Start: 09-05-2021 End: 09-22-2021 take 1 tablet by mouth twice daily sulfamethoxazole -trimethoprim (BACTRIM DS) 800-160 mg per tablet Take 1 tablet by mouth twice daily for 10 days. 20 tablet 0 09/12/2021 09/22/2021 Active Comment on above: Take 1 tablet by [facility] twice daily for 10 days. Trelegy Ellipta 200 mcg-62.5 mcg-25 mcg/inh inhalation powder (1 source) Start: 05-23-2024 take 1 dose by inhalation once daily as needed for wheezing Trelegy Ellipta 200 mcg-62.5 mcg-25 mcg/inh inhalation powder Dose = 1 puff(s), Inhalation, qDay, PRN Shortness of breath or wheezing, at the same time every day, 0 Refill(s) Start Date: 05/23/24 Status: Ordered Repeat number: 1 Trelegy Ellipta 200-62.5-25 mcg blister with device (1 source) Start: 01-11-2023 Trelegy Ellipta 200-62.5-25 mcg blister with device valACYclovir 1000 mg oral tablet (20 sources) Herpesvirus Nucleoside Analog DNA Polymerase Inhibitor, Herpes Simplex Virus Nucleoside Analog DNA Polymerase Inhibitor, Herpes Zoster Virus Nucleoside Analog DNA Polymerase Inhibitor Start: 10-18-2022 take 1 tablet by mouth twice daily [...] day s as needed for cold sores Vitamin D with Minerals oral tablet, chewable (1 source) Start: 05-23-2024 take 1 tablet by mouth once daily Vitamin D with Minerals oral tablet, chewable Dose = 1 tab(s), Chewed, qDay, # 30 tab(s), 0 Refill(s) Start Date: 05/23/24 Status: Ordered Quantity: 30.0 Unit: tab(s) Repeat number: 1 Completed/Discontinued Medications Medication Drug Class(es) Dates Sig [...] once daily. Take 1 tablet by bear twice daily for 21 days. atenolol 50 mg oral tablet (1 source) beta-Adrenergic Freda Start: 015 End: take 1 tablet by mouth once daily atenolol (Tenormin) 50 mg tablet Take 1 tablet (50 mg) by mouth once daily. 0 10/12/2014 02/20/2023 Discontinued (Med List Cleanup) atorvastatin 80 mg oral tablet (1 source) HMG-CoA Reductase Inhibitor Start: End: atorvastatin (Lipitor) 80 mg tablet Take by mouth once daily. 0 04/21/2013 02/20/2023 Discontinued (Med List Cleanup) cholestyramine resin 4000 mg powder for oral suspension (20 sources) Bile Acid Sequestrant Start: End: take 1 dose by mouth three times daily at mealtime cholestyramine (QUESTRAN) 4 gram packet Take 1 Packet by mouth three times daily with meals. 90 Packet 11 12/10/2021 03/22/2022 Discontinued (Course of therapy completed) Comment on above: Take 1 Packet by bear three times daily with meals. colesevelam hydrochloride 625 mg oral tablet (3 sources) Bile Acid Sequestrant Start: take 3 tablets by mouth twice daily before mealtime colesevelam (WELCHOL) 625 mg tablet Indications: Chronic diarrhea Take 3 tablets by mouth twice daily before meals. 360 tablet 3 12/03/2021 Active Comment on above: Take 3 tablets by mo [facility] twice daily before meals. docusate sodium 100 mg oral capsule (16 sources) Start: End: take 1 capsule by mouth twice daily docusate sodium (COLACE) 100 mg capsule TAKE 1 CAPSULE BY MOUTH 2 TIMES PER DAY 0 01/21/2022 03/22/2022 Discontinued (Course of therapy completed) Comment on above: TAKE 1 CAPSULE BY MO [facility] 2 TIMES PER DAY doxepin 3 mg [...] ago, but is going to ask his Drawbench Operator to see if he should continue. 0 07/14/2021 12/03/2021 Discontinued Start: 07-14-2021 Fluorouracil 5 % cream APPLY CREAM TOPICALLY TWICE DAILY TO FOREHEAD DIRECTED FOR 14 DAYS 0 07/14/2021 Active Comment on above: APPLY CREAM TOPICALL Y TWICE DAILY TO FOREHEAD DIRECTED FOR 14 DAYS Patient states she s topped this 2 days ago, but is going to ask his Drawbench Operator to see if he should continue. 30 actuat fluticasone furoate 0.2 mg/actuat / vilanterol 0.025 mg/actuat dry powder inhaler (20 sources) Corticosteroid, beta2-Adrenergic Agonist Start: 09-11-19 23 End: 02-21-20 take 1 puff(s) by inhalation once daily [...] Angiotensin Converting Enzyme Inhibitor Start: 013 End: 023 take 1 tablet by mouth once daily lisinopriL-hydrochl orothiazide 20-12.5 mg tablet Take 1 tablet by mouth once daily. 0 07/18/2012 02/20/2023 Discontinued (Med List Cleanup) 24 hr metoprolol succinate 100 mg extended release oral tablet (20 sources) beta-Adrenergic Freda Start: 025 End: 025 take 1 tablet by mouth in the morning metoprolol succinate 100 mg oral TABLET extended release Start: 05/26/24 8:00:00 AM EST, Dose = 100 mg, = 1 tab(s), Oral, 0, 05/23/24 14:41:00 EST Start Date: 05/26/24 Stop Date: 05/26/24 Status: Completed Repeat number: 1 Start: 05-02-2024 End: 05-03-2024 take 1 tablet by mouth in the morning metoprolol succinate 100 mg oral TABLET extended release Start: 05/03/24 8:00:00 AM EST, Dose = 100 mg, = 1 tab(s), Oral, 0, 05/02/24 2:52:00 EST Start Date: 05/03/24 Stop Date: 05/03/24 Status: Completed Repeat number: 1 Start: 05-02-2024 Metoprolol Suc cinate ER 100 mg oral TABLET extended release Dose : 100 mg = 1 tab(s), Oral, qDay Start Date: 05/02/24 Status: Ordered Repeat number: 1 Start: 05-05-2023 Metoprolol Tar trate 100 mg oral tablet 0 Refill(s) Start [...] a tablet b y mouth twice daily. mirtazapine 30 mg oral tablet (20 sources) [...] tablet by bear th three times daily. roflumilast 0.5 mg oral tablet (20 sources) Phosphodiesterase 4 Inhibitor Start: 023 End: take 1 tablet by mouth once [...] tablet by bear th daily at bedtime. zolpidem tartrate 10 mg oral tablet (20 sources) gamma-Aminobutyric Acid-ergic Agonist Start: zolpidem 10 mg oral tablet Dose : 10 mg = 1 tab(s), Oral, qHS, PRN as needed for sleep, 0 Refill(s), 90.9 Start Date: 05/05/23 Status: Ordered Repeat number: 1 Start: 07-01-2022 End: 02-20-2023 take 1 tablet [...] as needed for up to 90 days. Problems Active Problems Problem Classification Problem Date Documented Da te Episodic/Chronic Abdominal hernia (1 source) Unilateral inguinal hernia, without obstruction or gangrene, not specified as recurrent; Translations: [Unilateral inguinal hernia, without obstruction or gangrene, not specified as recurrent] Onset: 5 Episodic Acute myocardial infarction (20 sources) Myocardial infarction; Translations: [Non-ST elevation (NSTEMI) myocardial infarction] Onset: 9 03-31-2019 Chronic Acute posthemorrhagic anemia (20 sources) Acute posthemorrhagic anemia; Translations: [Acute posthemorrhagic anemia] Onset: 2 05-16-2021 Episodic Allergic reactions (4 sources) Allergy status to penicillin; Translations: [Allergy status to other antibiotic agents status] Onset: 8 Episodic Anxiety disorders (1 source) Anxiety disorder, unspecified; Translations: [Anxiety disorder, unspecified] Onset: 5 Chronic Cancer of kidney and renal pelvis (20 [...] unspecified] Onset: 3 12-02-2022 Chronic Cardiac dysrhythmias (7 sources) Atrial fibrillation; Translations: [Unspecified atrial fibrillation] Onset: 3 02-20-2023 Chronic Chronic kidney disease (20 sources) Chronic kidney disease stage 2; Translations: [Chronic kidney disease, stage 2 (mild)] Onset: 9 11-10-2018 Chronic Chronic kidney disease (3 sources) Chronic kidney disease; Translations: [CHRONIC KIDNEY DISEASE [...] Coronary arteriosclerosis; Translations: [Atherosclerotic heart disease of [place] coronary artery without angina pectoris] Onset: 3 [...] and other anemia (2 sources) Iron deficiency anemia secondary to blood loss (chronic); Translations: [Iron deficiency anemia secondary to blood loss (chronic)] Onset: 5 Chronic Deficiency and other anemia (4 sources) Iron deficiency anemia, unspecified; Translations: [Iron [...] Translations: [Essential hypertension] Onset: 8 05-16-2021 Chronic Fracture of neck of femur (hip) (4 sources) Closed intertrochanteric fracture of right femur; Translations: [Displaced intertrochanteric fracture of right femur, initial encounter for closed fracture] Onset: 5 Episodic Gastrointestinal hemorrhage (15 sources) Gastrointestinal hemorrhage; Translations: [Gastrointestinal hemorrhage, unspecified] Onset: 9 Resolved: 9 Episodic Heart valve disorders (1 source) Rheumatic disorders of both mitral and aortic valves; Translations: [RHEUMATIC D/O MITRAL AORTIC VALVES] Onset: 3 Chronic Hyperplasia of prostate (20 sources) Benign prostatic hyperplasia; Translations: [Benign prostatic hyperplasia without lower urinary tract symptoms] Onset: 9 10-05-2018 Chronic Hypertension with complications and secondary hypertension (3 sources) Chronic kidney disease due to hypertension; Translations: [Hypertensive chronic kidney disease with stage 1 through stage 4 chronic kidney disease, or unspecified chronic kidney disease] Onset: 3 02-20-2023 Chronic Immunity disorders (1 source) Immunodeficiency, unspecified; Translations: [IMMUNODEFICIENCY UNSPECIFIED] Onset: 3 Chronic Influenza (1 source) Influenza due to unidentified influenza virus with other respiratory manifestations; Translations: [Influenza due to unidentified influenza virus with other respiratory manifestations] Onset: 5 Episodic Leukemias (20 sources) Chronic lymphoid leukemia, disease; Translations: [Chronic lymphocytic leukemia of B-cell type not having achieved remission] Onset: 8 05-16-2021 Chronic Leukemias (2 sources) Personal history of leukemia; Translations: [History of leukemia] Onset: 3 Episodic Malaise and fatigue (20 sources) Physical deconditioning; Translations: [Other malaise] Onset: 4 Episodic Miscellaneous mental health disorders (20 sources) Primary insomnia; Translations: [Primary insomnia] Onset: 3 Chronic Mood disorders (1 source) Mood disorders; Translations: [Depression, unspecified] Onset: 5 Nausea and vomiting (1 source) Nausea with vomiting, unspecified; Translations: [NAUSEA WITH VOMITING UNSPECIFIED] Onset: 4 Episodic Neoplasms of unspecified nature or uncertain behavior (20 sources) Essential thrombocythemia; Translations: [Essential (hemorrhagic) thrombocythemia] Onset: 9 05-25-2020 Chronic Noninfectious gastroenteritis (2 sources) Chronic diarrhea; Translations: [Noninfective gastroenteritis and colitis, unspecified] Onset: 5 Episodic Nutritional deficiencies (20 sources) Deficiency of macronutrients; Translations: [Unspecified severe protein-calorie malnutrition] Onset: 2 05-16-2021 Chronic Other aftercare (3 sources) care home (current) use of aspirin; Translations: [care home (current) use of aspirin] Onset: 8 Episodic Other aftercare (1 source) technician terminal and repeater (current) use of inhaled steroids; Translations: [SPECIAL [employer]LECTIONS LIBRARIAN USE OF INHALED STEROIDS] Onset: 4 Episodic Other aftercare (1 source) care home (current) use of systemic steroids; Translations: [SPECIAL [employer]LE[employer] LIBRARIAN USE OF SYSTEMIC STEROIDS] Onset: 4 Episodic Other aftercare (1 source) Other intermediate (current) drug therapy; Translations: [OTH [facility] CURRENT DRUG THERAPY] Onset: 4 Episodic Other [...] unspecified limb] Onset: 3 02-17-2023 Episodic Other bone disease and musculoskeletal deformities (1 source) Segmental and somatic dysfunction of cervical region; Translations: [Segmental and somatic dysfunction of cervical region] Onset: 5 Episodic Other circulatory disease (2 sources) Disorder of arteries and arterioles, unspecified; Translations: [Disorder of arteries and arterioles, unspecified] Onset: 4 Chronic Other circulatory disease (1 source) Orthostatic hypotension; [...] [Angiodysplasia of colon with hemorrhage] Episodic Other gastrointestinal disorders (1 source) Angiodysplasia of colon without hemorrhage; Translations: [Angiodysplasia of colon without hemorrhage] Onset: 5 Episodic Other hematologic conditions (2 sources) Raised [...] small acinar proliferation of prostate] Episodic Other nervous system disorders (1 source) Polyneuropathy, unspecified; Translations: [Polyneuropathy, unspecified] Onset: 4 Chronic Other nervous system disorders (1 source) Aphasia; Translations: [Aphasia] Onset: 4 Chronic Other non-traumatic joint disorders (14 sources) Pain in left knee; Translations: [Pain in joint, lower leg] Episodic Other non-traumatic joint disorders (20 sources) Hip pain; Translations: [Pain in left hip] Episodic Other nutritional; endocrine; and metabolic disorders (20 sources) Obese class I; Translations: [Obesity, unspecified] Onset: 2 05-28-2021 Chronic Other nutritional; endocrine; and metabolic disorders (1 source) Hypocalcemia; Translations: [Hypocalcemia] Onset: 5 Chronic Other nutritional; endocrine; and metabolic disorders (2 sources) Hypomagnesemia; Translations: [Hypomagnesemia] Onset: 4 Chronic Other skin disorders (2 sources) Disorder of left upper extremity; Translations: [Localized swelling, mass and lump, left upper limb] Episodic Other upper respiratory disease (1 source) Allergic rhinitis; Translations: [Allergic rhinitis, unspecified] Onset: 3 02-20-2023 Chronic Other upper respiratory infections (2 sources) Upper respiratory infection; Translations: [Acute upper respiratory infection, unspecified] Episodic Peripheral and visceral atherosclerosis (2 sources) Peripheral vascular disease, unspecified; Translations: [Peripheral vascular disease, unspecified] Onset: 4 Chronic Phlebitis; thrombophlebitis and thromboembolism (20 sources) Chronic deep venous thrombosis of thigh; Translations: [Chronic embolism and thrombosis of unspecified deep veins of left proximal lower extremity] Onset: 3 12-02-2022 Chronic Pneumonia (except that caused by tuberculosis or sexually transmitted disease) (3 sources) Other viral pneumonia; Translations: [Pneumonia due to Pseudomonas] Onset: 3 Episodic Pulmonary heart disease (1 source) Chronic pulmonary embolism; Translations: [CHRONIC PULMONARY EMBOLISM] Onset: 3 Chronic Pulmonary heart disease (20 sources) Pulmonary embolism; Translations: [Other pulmonary embolism without acute cor pulmonale] Onset: 3 12-01-2022 Episodic Residual codes; unclassified (20 sources) Obstructive sleep apnea syndrome; Translations: [Obstructive sleep apnea (adult) (pediatric)] Onset: 2 05-01-2021 Chronic Residual codes; unclassified (14 sources) Insomnia; Translations: [Other insomnia] Chronic Residual codes; unclassified (2 sources) Obstructive sleep apnea (adult) (pediatric); Translations: [OBSTRUCTIVE SLEEP APNEA] Onset: 3 Chronic Residual codes; unclassified (2 sources) Edema of lower extremity; Translations: [Localized edema] Episodic Residual codes; unclassified (1 source) Insomnia, unspecified; Translations: [Insomnia, unspecified] Onset: 5 Episodic Screening or history of mental health and substance abuse (2 sources) Personal history of nicotine dependence; Translations: [Personal history of nicotine dependence] Onset: 8 Episodic Spondylosis; intervertebral disc disorders; other back problems (1 source) Other cervical disc degeneration, unspecified cervical region; Translations: [Other cervical disc degeneration, unspecified cervical region] Onset: 5 Chronic Transient cerebral ischemia (1 source) Transient cerebral ischemic attack, unspecified; Translations: [Transient cerebral ischemic attack, unspecified] Onset: 4 Chronic Unclassified (1 source) ACIDOSIS UNSPECIFIED; Translations: [ACIDOSIS UNSPECIFIED] Onset: 4 Unclassified (1 source) PERSONAL HISTORY OF COVID-19; Translations: [PERSONAL HISTORY OF COVID-19] Onset: 3 Unclassified (2 sources) SUBACUTE COUGH; Translations: [SUBACUTE COUGH] Onset: 3 Unclassified (1 source) Physical Therapy Onset: 4 Unclassified (1 source) Acute midline low back pain without sciatica; Translations: [Acute midline low back pain without sciatica] Onset: 4 Unclassified (1 source) Low back pain, unspecified; Translations: [Low back pain, unspecified] Onset: 4 Past or Other Problems Problem Classification Problem Date Documented Da te Episodic/Chronic Abdominal pain (2 sources) Left lower quadrant pain; Translations: [Unspecified abdominal pain] Onset: 4 Episodic Acute and unspecified renal failure (20 sources) Acute injury of kidney; Translations: [Acute kidney failure, unspecified] Onset: 9 05-16-2021 Episodic Administrative/social admission (20 sources) Other reduced mobility; Translations: [Other specified conditions influencing health status] Onset: 4 Episodic Blindness and vision defects (1 source) Diplopia; Translations: [Diplopia] Onset: 4 Episodic Cancer of kidney and [...] compounds, initial encounter] Onset: 8 10-24-2017 Episodic Fluid and electrolyte disorders (1 source) Dehydration; Translations: [Dehydration] Onset: 4 Episodic Fracture of neck of femur (hip) (12 sources) Closed subtrochanteric fracture of left femur; Translations: [Displaced subtrochanteric fracture of left femur, initial encounter for closed fracture] Onset: 1 Resolved: 1 07-27-2020 Episodic Genitourinary symptoms and ill-defined conditions (20 sources) Nocturia; Translations: [Nocturia] Onset: 8 Resolved: 9 03-19-2018 Episodic Mood disorders (20 sources) 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 medical condition; Translations: [Mood disorder due to known physiological condition, unspecified] Onset: 3 12-09-2022 Episodic Other aftercare (20 sources) Patient encounter status; Translations: [Encounter for therapeutic drug level monitoring] Onset: 3 12-11-2022 Episodic Other aftercare (1 source) Encounter for surgical aftercare following surgery on the circulatory system; Translations: [Encounter for surgical aftercare following surgery on the circulatory system] Onset: 4 Episodic Other and unspecified benign neoplasm (1 source) Benign lipomatous neoplasm of skin and subcutaneous tissue of right arm; Translations: [Benign lipomatous neoplasm of skin and subcutaneous tissue of right arm] Onset: 5 Episodic Other connective tissue disease (20 sources) Swelling of lower limb; Translations: [Other specified soft tissue disorders] Onset: 1 03-14-2021 Episodic Other connective tissue disease (1 source) Pain in right leg; Translations: [Pain in right leg] Onset: 5 Episodic Other ear and sense organ disorders (1 source) Otalgia, bilateral; Translations: [Otalgia, bilateral] Onset: 5 Episodic Other gastrointestinal disorders (20 sources) History of gastrointestinal bleed; Translations: [Personal history of other diseases of the digestive system] Onset: 3 12-02-2022 Episodic Other gastrointestinal disorders (12 sources) Arteriovenous malformation of large intestine; Translations: [Angiodysplasia of colon without hemorrhage] Resolved: 9 01-11-2019 Episodic Other gastrointestinal disorders (2 sources) Diarrhea, unspecified; Translations: [DIARRHEA UNSPECIFIED] Onset: 3 [...] OF PNEUMONIA RECURRENT] Onset: 3 Episodic Other lower respiratory disease (1 source) Other nonspecific abnormal finding of lung field; Translations: [Other nonspecific abnormal finding of lung field] Onset: 5 Episodic Other lower respiratory disease (1 source) Wheezing; Translations: [Wheezing] Onset: 5 Episodic Other nervous system disorders (12 sources) Numbness of face; Translations: [Anesthesia of skin] Onset: 9 Resolved: 9 04-03-2019 Episodic Other nervous system disorders (1 source) Other acute postprocedural pain; Translations: [Other acute postprocedural pain] Onset: 4 Episodic Other nervous system disorders (1 source) Paresthesia of skin; Translations: [Paresthesia of skin] Onset: 4 Episodic Other non-epithelial cancer of skin (1 source) Personal history of other malignant neoplasm of skin; Translations: [Personal history of other malignant neoplasm of skin] Onset: 4 Episodic Other screening for suspected conditions (not mental disorders or infectious disease) (18 sources) Raised prostate specific antigen; Translations: [Elevated prostate specific antigen [PSA]] Onset: 3 Resolved: 3 Episodic Otitis media and related conditions (4 sources) Acute secretory otitis media; Translations: [Other acute nonsuppurative otitis media, right ear] Onset: 4 10-17-2023 Episodic Phlebitis; thrombophlebitis and thromboembolism (20 sources) Deep venous thrombosis of lower extremity; Translations: [Acute embolism and thrombosis of left femoral vein] Onset: 1 03-14-2021 Episodic Residual codes; unclassified (20 sources) History [...] Onset: 3 Episodic Septicemia (except in labor) (4 sources) Sepsis, unspecified organism; Translations: [Sepsis due to Streptococcus pneumoniae] Onset: 3 Episodic Spondylosis; intervertebral disc disorders; other back problems (9 sources) Neck pain; Translations: [Cervicalgia] Onset: 4 Episodic Unclassified (3 sources) Acquired absence of kidney; Translations: [Acquired absence of kidney] Onset: 8 Episodic Viral infection (20 sources) Disease caused by 2019-nCoV; Translations: [COVID-19] Onset: 2 05-16-2021 Episodic Results Test Name Value Interpretation Reference Range Facility CBC W/Diff, Automatedon 09-13 WBC (Bld) [#/Vol] 36.2 10*3/uL Invalid Interpretation Code 4.4-11.0 [facility] Comment on above: Result Comment: CRIT ICAL VALUE CALLED TO CASEY REYNA10/07/24 1551 Agnieszka Jules.RESULTS READ BACK BY SAME. AMENDED REPORT 10/07/24 1552 WBC previously reported as: 36.2 *H K/mm3 Performed By: #### L 100.0100, L503.6550, L503.6030, L500.4050, L501.9520, L506.1001 ####[facility] [address] [place], [place], [id number] Comprehensive Metabolic Prof aron 10-07-2024 Albumin [Mass/Vol] 4.3 g/dL Normal 3.4-4.8 [facility] Comment on above: Performed By: #### L 100.0100, L503.6550, L503.6030, L500.4050, L501.9520, L506.1001 ####[facility] [address] [place], [place], [id number] Albumin/Globulin [Mass ratio] 2.0 {ratio} Normal 0.9-2.4 [facility] Comment on above: Performed By: #### L 100.0100, L503.6550, L503.6030, L500.4050, L501.9520, L506.1001 ####[facility] [address] [place], [address] ALK PHOS 98 U/L Normal 40-129 [facility] Comment on above: Performed By: #### L 100.0100, L503.6550, L503.6030, L500.4050, L501.9520, L506.1001 ####[facility] [address] [place], [address] ALT [Catalytic activity/Vol] 13 U/L Normal <=46 [facility] Comment on above: Performed By: #### L 100.0100, L503.6550, L503.6030, L500.4050, L501.9520, L506.1001 ####[facility] [address] [place], [address] AST [Catalytic activity/Vol] 20 U/L Normal <=37 [facility] Comment on above: Performed By: #### L 100.0100, L503.6550, L503.6030, L500.4050, L501.9520, L506.1001 ####[facility] [address] [place], [address] Bilirubin [Mass/Vol] 0.28 mg/dL Normal 0.00-1.30 [facility] Comment on above: Performed By: #### L 100.0100, L503.6550, L503.6030, L500.4050, L501.9520, L506.1001 ####[facility] [address] [place], [address] BUN/CRE 16.1 RATIO Normal 10-20 [facility] Comment on above: Performed By: #### L 100.0100, L503.6550, L503.6030, L500.4050, L501.9520, L506.1001 ####[facility] [address] [place], [address] Calcium [Mass/Vol] 9.7 mg/dL Normal 7.6-11.0 [facility] Comment on above: Performed By: #### L 100.0100, L503.6550, L503.6030, L500.4050, L501.9520, L506.1001 ####[facility] [address] [place], [address] Chloride [Moles/Vol] 104 mmol/L Normal 98-108 [facility] Comment on above: Performed By: #### L 100.0100, L503.6550, L503.6030, L500.4050, L501.9520, L506.1001 ####[facility] [address] [place], [address] CO2 [Moles/Vol] 20.7 mmol/L Low 21.0-32.0 [facility] Comment on above: Performed By: #### L 100.0100, L503.6550, L503.6030, L500.4050, L501.9520, L506.1001 ####[facility] [address] [place], [address] Creatinine [Mass/Vol] 2.01 mg/dL High 0.70-1.20 [facility] Comment on above: Performed By: #### L 100.0100, L503.6550, L503.6030, L500.4050, L501.9520, L506.1001 ####[facility] [address] [place], [address] GAP 15 Normal 5-15 [facility] Comment on above: Performed By: #### L 100.0100, L503.6550, L503.6030, L500.4050, L501.9520, L506.1001 ####[facility] [address] [place], [address] GFR/1.73 sq M.predicted among non-blacks MDRD (S/P/Bld) [Vol rate/Area] 35 mL/min/{1.73_m2} Low >60 [facility] Comment on above: Result Comment: mL/m in/1.73m2 CKD-EPI Creatinine Equation (2020) Performed By: #### L 100.0100, L503.6550, L503.6030, L500.4050, L501.9520, L506.1001 ####[facility] [address] [place], [address] Globulin (S) [Mass/Vol] 2.1 g/dL Low 2.2-4.2 [facility] Comment on above: Performed By: #### L 100.0100, L503.6550, L503.6030, L500.4050, L501.9520, L506.1001 ####[facility] [address] [place], [address] Glucose [Mass/Vol] 103 mg/dL High 70-99 [facility] Comment on above: Performed By: #### L 100.0100, L503.6550, L503.6030, L500.4050, L501.9520, L506.1001 ####[facility] [address] [place], [address] Potassium [Moles/Vol] 5.5 mmol/L High 3.3-5.1 [facility] Comment on above: Performed By: #### L 100.0100, L503.6550, L503.6030, L500.4050, L501.9520, L506.1001 ####[facility] [address] [place], [address] Sodium [Moles/Vol] 140 mmol/L Normal 133-145 [facility] Comment on above: Performed By: #### L 100.0100, L503.6550, L503.6030, L500.4050, L501.9520, L506.1001 ####[facility] [address] [place], [address] T PROT 6.4 g/dL Normal 5.9-8.4 [facility] Comment on above: Performed By: #### L 100.0100, L503.6550, L503.6030, L500.4050, L501.9520, L506.1001 ####[facility] [address] [place], [address] Urea nitrogen [Mass/Vol] 32 mg/dL High 4-19 [facility] Comment on above: Performed By: #### L 100.0100, L503.6550, L503.6030, L500.4050, L501.9520, L506.1001 ####[facility] [address] [place], [address] Ferritinon 10-07-2024 Ferritin [Mass/Vol] 196 ng/mL Normal 37-417 [facility] Comment on above: Performed By: #### L 100.0100, L503.6550, L503.6030, L500.4050, L501.9520, L506.1001 ####[facility] [address] [place], [address] Iron+Iron Binding Capacityon 10-07-2024 Iron [Mass/Vol] 112 ug/dL Normal 65-175 [facility] Comment on above: Performed By: #### L 100.0100, L503.6550, L503.6030, L500.4050, L501.9520, L506.1001 ####[facility] [address] [place], [address] IRON SATURATION 40.0 Normal 9-55 [facility] Comment on above: Performed By: #### L 100.0100, L503.6550, L503.6030, L500.4050, L501.9520, L506.1001 ####[facility] [address] [place], [address] TIBC 283 ug/dL Normal 250-450 [facility] Comment on above: Performed By: #### L 100.0100, L503.6550, L503.6030, L500.4050, L501.9520, L506.1001 ####[facility] [address] [place], [address] UIBC 171 ug/dL Low 228-428 [facility] Comment on above: Performed By: #### L 100.0100, L503.6550, L503.6030, L500.4050, L501.9520, L506.1001 ####[facility] [address] [place], [address] Thyroid Stim Hormone (TSH)on 10-07-2024 TSH 1.480 uIU/mL Normal 0.300-4.200 [facility] Comment on above: Performed By: #### L 100.0100, L503.6550, L503.6030, L500.4050, L501.9520, L506.1001 ####[facility] [address] [place], [address] Vitamin D,25 Hydroxyon 10-07 Vitamin D 25-OH 38.1 ng/mL Normal 30-100 [facility] Comment on above: Result Comment: Mila min D StatusDeficiency: <20 ng/mL (50nmol/L)Insufficiency: 20-30 ng/mL (50-75 nmol/L)Sufficiency: 30-100 ng/mL (75-250 nmol/L)Toxicity: >100 ng/mL (>250 nmol/L) Performed By: #### L 100.0100, L503.6550, L503.6030, L500.4050, L501.9520, L506.1001 ####[facility] [address] [place], [address] Inital Evaluation (1) - PTon 10-06-2024 Inital Evaluation (1) - PT Normal [facility] MR/BMS.BPon 09-19-2024 MR/BMS.BP Normal [facility] Acid Fast Bacillus Cultureon 09-13-2024 tAFBC Normal [facility] Comment on above: Performed By: #### M 100.2000, M600.2000, M300.2000, M300.3000, M100.2400 ####[facility] [address] [place], [address] Acid Fast Bacillus Smear/Flu oron 09-13-2024 tafb Normal [facility] Comment on above: Performed By: #### M 100.2000, M600.2000, M300.2000, M300.3000, M100.2400 ####[facility] [address] [place], [address] Culture, Fungus 8482on 09-13 CUF Normal [facility] Comment on above: Performed By: #### M 100.2000, M600.2000, M300.2000, M300.3000, M100.2400 ####[facility] [address] [place], [address] MR/BMS.BPon 08-27-2024 MR/BMS.BP Normal [facility] CBC W/Diff, Automatedon 04- PATH REV Reviewed Normal [facility] Comment on above: Order Comment: CRITI KENTRELL VALUE CALLED TO BRIDGET07/29/24 Tiffany Santoyo.RESULTS READ BACK BY ELROY. 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, [address] PATH REV Reviewed Normal [facility] Comment on above: Result Comment: SEE REPORT IN PATIENT'S EMR AMENDED REPORT 08/06/24 0857 PATH REV previously reported as: August foll Performed By: #### L 500.2500, L100.0100 ####[facility] [address] [place], [address] Chiropractic Reporton 2024 Chiropractic Report Normal [facility] Immunoglobulin Yosef 5 IMMUNOGLOB G QN 411 mg/dL Low 603-1613 [facility] Comment on above: Result Comment: Perf ormed at: - [facility] [address] [id number] Director: Jorge Chatterjee PhD, Phone: [phone] Performed By: #### L 4625.0202 ####[facility] [address] [place], [place], [id number] Ferritinon 07-29-2024 Ferritin [Mass/Vol] 321 ng/mL Normal 37-417 [facility] Comment on above: Order Comment: ADD O N FROM EARLIER TODAY, THANKS Performed By: #### L 503.6030, L503.9250 ####[facility] [address] [place], [address] Iron+Iron Binding Capacityon 07-29-2024 Iron [Mass/Vol] 33 ug/dL Low 65-175 [facility] Comment on above: Order Comment: ADD O N FROM EARLIER TODAY, THANKS Performed By: #### L 503.6030, L503.6550 ####[facility] [address] [place], [address] IRON SATURATION 13.0 Normal 9-55 [facility] Comment on above: Order Comment: ADD O N FROM EARLIER TODAY, THANKS Performed By: #### L 503.6030, L503.6550 ####[facility] [address] [place], [address] TIBC 245 ug/dL Low 250-450 [facility] Comment on above: Order Comment: ADD O N FROM EARLIER TODAY, THANKS Performed By: #### L 503.6030, L503.6550 ####[facility] [address] [place], [address] UIBC 212 ug/dL Low 228-428 [facility] Comment on above: Order Comment: ADD O N FROM EARLIER TODAY, THANKS Performed By: #### L 503.6030, L503.6550 ####[facility] [address] [place], [address] Oncology Visit Reporton 07-13 Oncology Visit Report Normal [facility] Respiratory Cultureon 2024 RESPC Normal [facility] Comment on above: Performed By: #### M 100.2000, M600.2000, M300.2000, M300.3000, M100.2400 ####[facility] [address] [place], [address] Gram Stainon 07-26-2024 GS Acceptable Specimen? Yes (<25 Epithelial cells per/lpf) Gram Stain 3+ Gram positive cocci 3+ Gram negative rods 2+ Gram positive rods 3+ White Blood Cells 1+ Epithelial cells Normal [facility] Comment on above: Performed By: #### M 100.2000, M600.2000, M300.2000, M300.3000, M100.2400 ####[facility] [address] [place], [address] CBC W/Diff, Automatedon 04-0 PATH REV N/A Normal [facility] Comment on above: Result Comment: AMENDED REPORT 07/21/242157 PATH REV previously reported as: May foll Performed By: #### L 100.0100, L500.4050, L501.9520, L506.1001 ####[facility] [address] [place], [address] Comprehensive Metabolic Prof ilon 07-20-2024 Albumin [Mass/Vol] 3.5 g/dL Normal 3.4-4.8 [facility] Comment on above: Performed By: #### L 100.0100, L500.4050, L501.9520, L506.1001 ####[facility] [address] [place], [address] Albumin/Globulin [Mass ratio] 1.3 {ratio} Normal 0.9-2.4 [facility] Comment on above: Performed By: #### L 100.0100, L500.4050, L501.9520, L506.1001 ####[facility] [address] [place], [address] ALK PHOS 118 U/L Normal 40-129 [facility] Comment on above: Performed By: #### L 100.0100, L500.4050, L501.9520, L506.1001 ####[facility] [address] [place], [address] ALT [Catalytic activity/Vol] 27 U/L Normal <=46 [facility] Comment on above: Performed By: #### L 100.0100, L500.4050, L501.9520, L506.1001 ####[facility] [address] [place], [address] AST [Catalytic activity/Vol] 17 U/L Normal <=37 [facility] Comment on above: Performed By: #### L 100.0100, L500.4050, L501.9520, L506.1001 ####[facility] [address] [place], [address] Bilirubin [Mass/Vol] 0.33 mg/dL Normal 0.00-1.30 [facility] Comment on above: Performed By: #### L 100.0100, L500.4050, L501.9520, L506.1001 ####[facility] [address] [place], [address] BUN/CRE 14.0 RATIO Normal 10-20 [facility] Comment on above: Performed By: #### L 100.0100, L500.4050, L501.9520, L506.1001 ####[facility] [address] [place], [address] Calcium [Mass/Vol] 9.1 mg/dL Normal 7.6-11.0 [facility] Comment on above: Performed By: #### L 100.0100, L500.4050, L501.9520, L506.1001 ####[facility] [address] [place], [address] Chloride [Moles/Vol] 101 mmol/L Normal 98-108 [facility] Comment on above: Performed By: #### L 100.0100, L500.4050, L501.9520, L506.1001 ####[facility] [address] [place], [address] CO2 [Moles/Vol] 22.7 mmol/L Normal 21.0-32.0 [facility] Comment on above: Performed By: #### L 100.0100, L500.4050, L501.9520, L506.1001 ####[facility] [address] [place], [address] Creatinine [Mass/Vol] 1.82 mg/dL High 0.70-1.20 [facility] Comment on above: Performed By: #### L 100.0100, L500.4050, L501.9520, L506.1001 ####[facility] [address] [place], [address] GAP 14 Normal 5-15 [facility] Comment on above: Performed By: #### L 100.0100, L500.4050, L501.9520, L506.1001 ####[facility] [address] [place], [address] GFR/1.73 sq M.predicted among non-blacks MDRD (S/P/Bld) [Vol rate/Area] 39 mL/min/{1.73_m2} Low >60 [facility] Comment on above: Result Comment: mL/m in/1.73m2 CKD-EPI Creatinine Equation (2020) Performed By: #### L 100.0100, L500.4050, L501.9520, L506.1001 ####[facility] [address] [place], [address] Globulin (S) [Mass/Vol] 2.7 g/dL Normal 2.2-4.2 [facility] Comment on above: Performed By: #### L 100.0100, L500.4050, L501.9520, L506.1001 ####[facility] [address] [place], [address] Glucose [Mass/Vol] 117 mg/dL High 70-99 [facility] Comment on above: Performed By: #### L 100.0100, L500.4050, L501.9520, L506.1001 ####[facility] [address] [place], [address] Potassium [Moles/Vol] 4.3 mmol/L Normal 3.3-5.1 [facility] Comment on above: Performed By: #### L 100.0100, L500.4050, L501.9520, L506.1001 ####[facility] [address] [place], [address] Sodium [Moles/Vol] 138 mmol/L Normal 133-145 [facility] Comment on above: Performed By: #### L 100.0100, L500.4050, L501.9520, L506.1001 ####[facility] [address] [place], [address] T PROT 6.2 g/dL Normal 5.9-8.4 [facility] Comment on above: Performed By: #### L 100.0100, L500.4050, L501.9520, L506.1001 ####[facility] [address] [place], [address] Urea nitrogen [Mass/Vol] 25 mg/dL High 4-19 [facility] Comment on above: Performed By: #### L 100.0100, L500.4050, L501.9520, L506.1001 ####[facility] [address] [place], [address] Thyroid Stim Hormone (TSH)on 07-20-2024 TSH 0.371 uIU/mL Normal 0.300-4.200 [facility] Comment on above: Performed By: #### L 100.0100, L500.4050, L501.9520, L506.1001 ####[facility] [address] [place], [address] Vitamin D,25 Hydroxyon 07-20 Vitamin D 25-OH 31.4 ng/mL Normal 30-100 [facility] Comment on above: Result Comment: Mila min D StatusDeficiency: <20 ng/mL (50nmol/L)Insufficiency: 20-30 ng/mL (50-75 nmol/L)Sufficiency: 30-100 ng/mL (75-250 nmol/L)Toxicity: >100 ng/mL (>250 nmol/L) Performed By: #### L 100.0100, L500.4050, L501.9520, L506.1001 ####[facility] [address] [place], [address] CBC W/Diff, Automatedon 04-0 PATH REV N/A Normal [facility] Comment on above: Result Comment: AMENDED REPORT 07/18/24 1800 PATH REV previously reported as: August Performed By: #### L 500.2500, L100.0100 ####[facility] [address] [place], [address] HH, Hemoglobin AND Hematocri ton 07-14-2024 Hematocrit (Bld) [Volume fraction] 30.6 % Low 40-54 [facility] Comment on above: Order Comment: 24 HO URS POST TRANFUSION Performed By: #### L 100.0600 ####[facility] [address] [place], [address] Hemoglobin (Bld) [Mass/Vol] 10.2 g/dL Low 13.0-16.5 [facility] Comment on above: Order Comment: 24 HO URS POST TRANFUSION Performed By: #### L 100.0600 ####[facility] [address] [place], [address] HH, Hemoglobin AND Hematocri ton 07-12-2024 Hematocrit (Bld) [Volume fraction] 24.1 % Low 40-54 [facility] Comment on above: Performed By: #### L 100.0600 ####[facility] [address] [place], [address] Hemoglobin (Bld) [Mass/Vol] 8.1 g/dL Low 13.0-16.5 [facility] Comment on above: Performed By: #### L 100.0600 ####[facility] [address] [place], [address] MR/CON.PCM.GIon 07-12-2024 MR/CON.PCM.GI Normal [facility] BRCon 07-11-2024 RC Normal [facility] Comment on above: Result Comment: [id number] BN RC TRANSFUSED 07/13/24 [id number] BN RC NOT AVAILABLE Performed By: #### B RC, BTS ####[facility] [address] [place], [address] Type AND Screenon 07-11-2024 ABO and Rh group Nom (Bld) Blood group B Rh(D) positive Normal [facility] Comment on above: Order Comment: CMV N EG? NNumber of units to transfuse: 2Reason for Ordering Blood: AcuteAre the blood/blood products to be transfused? YIs the patient having/had surgery? YWhen ReadyNYA Performed By: #### B RC, BTS ####[facility] [address] [place], [address] HH, Hemoglobin AND Hematocri ton 07-10-2024 Hematocrit (Bld) [Volume fraction] 22.7 % Low 40-54 [facility] Comment on above: Performed By: #### L 100.0600 ####[facility] [address] [place], [address] Hemoglobin (Bld) [Mass/Vol] 7.6 g/dL Low 13.0-16.5 [facility] Comment on above: Performed By: #### L 100.0600 ####[facility] [address] [place], [address] Stool Occult Blood iFOBon STOB Normal [facility] Comment on above: Performed By: #### M 100.7900 ####[facility] [address] [place], [address] CBC W/Diff, Automatedon 06-13 Anisocytosis Ql (Bld) 3+ Normal [facility] Comment on above: Performed By: #### L 100.0100, L500.4050 ####[facility] [address] [place], [address] PLT EST SLT DEC Normal ADEQ [facility] Comment on above: Performed By: #### L 100.0100, L500.4050 ####[facility] [address] [place], [address] Comprehensive Metabolic Prof ilon 07-09-2024 Albumin [Mass/Vol] 3.5 g/dL Normal 3.4-4.8 [facility] Comment on above: Performed By: #### L 100.0100, L500.4050 ####[facility] [address] [place], [address] Albumin/Globulin [Mass ratio] 1.5 {ratio} Normal 0.9-2.4 [facility] Comment on above: Performed By: #### L 100.0100, L500.4050 ####[facility] [address] [place], [address] ALK PHOS 98 U/L Normal 40-129 [facility] Comment on above: Performed By: #### L 100.0100, L500.4050 ####[facility] [address] [place], [address] ALT [Catalytic activity/Vol] 17 U/L Normal <=46 [facility] Comment on above: Performed By: #### L 100.0100, L500.4050 ####[facility] [address] [place], [address] AST [Catalytic activity/Vol] 17 U/L Normal <=37 [facility] Comment on above: Performed By: #### L 100.0100, L500.4050 ####[facility] [address] [place], [address] Bilirubin [Mass/Vol] 0.50 mg/dL Normal 0.00-1.30 [facility] Comment on above: Performed By: #### L 100.0100, L500.4050 ####[facility] [address] [place], [address] BUN/CRE 15.0 RATIO Normal 10-20 [facility] Comment on above: Performed By: #### L 100.0100, L500.4050 ####[facility] [address] [place], [address] Calcium [Mass/Vol] 9.7 mg/dL Normal 7.6-11.0 [facility] Comment on above: Performed By: #### L 100.0100, L500.4050 ####[facility] [address] [place], [address] Chloride [Moles/Vol] 107 mmol/L Normal 98-108 [facility] Comment on above: Performed By: #### L 100.0100, L500.4050 ####[facility] [address] [place], [address] CO2 [Moles/Vol] 20.9 mmol/L Low 21.0-32.0 [facility] Comment on above: Performed By: #### L 100.0100, L500.4050 ####[facility] [address] [place], [address] Creatinine [Mass/Vol] 1.75 mg/dL High 0.70-1.20 [facility] Comment on above: Performed By: #### L 100.0100, L500.4050 ####[facility] [address] [place], [address] ECRCL 39.28 ml/min Low 50-250 [facility] Comment on above: Performed By: #### L 100.0100, L500.4050 ####[facility] [address] [place], [address] GAP 11 Normal 5-15 [facility] Comment on above: Performed By: #### L 100.0100, L500.4050 ####[facility] [address] [place], [address] GFR/1.73 sq M.predicted among non-blacks MDRD (S/P/Bld) [Vol rate/Area] 41 mL/min/{1.73_m2} Low >60 [facility] Comment on above: Result Comment: mL/m in/1.73m2 CKD-EPI Creatinine Equation (2020) Performed By: #### L 100.0100, L500.4050 ####[facility] [address] [place], [address] Globulin (S) [Mass/Vol] 2.3 g/dL Normal 2.2-4.2 [facility] Comment on above: Performed By: #### L 100.0100, L500.4050 ####[facility] [address] [place], [address] Glucose [Mass/Vol] 110 mg/dL High 70-99 [facility] Comment on above: Performed By: #### L 100.0100, L500.4050 ####[facility] [address] [place], [address] Potassium [Moles/Vol] 5.1 mmol/L Normal 3.3-5.1 [facility] Comment on above: Performed By: #### L 100.0100, L500.4050 ####[facility] [address] [place], [address] Sodium [Moles/Vol] 140 mmol/L Normal 133-145 [facility] Comment on above: Performed By: #### L 100.0100, L500.4050 ####[facility] [address] [place], [address] T PROT 5.8 g/dL Low 5.9-8.4 [facility] Comment on above: Performed By: #### L 100.0100, L500.4050 ####[facility] [address] [place], [address] Urea nitrogen [Mass/Vol] 26 mg/dL High 4-19 [facility] Comment on above: Performed By: #### L 100.0100, L500.4050 ####[facility] [address] [place], [address] CBC W/Diff, Automatedon 03- PATH REV N/A Normal [facility] Comment on above: Result Comment: AMENDED REPORT 07/06/24 1049 PATH REV previously reported as: August Performed By: #### L 500.2500, L100.0100 ####[facility] [address] [place], [address] Basic Metabolic Profile (BMP )on 07-02-2024 BUN/CRE 28.5 RATIO High 10-20 [facility] Comment on above: Performed By: #### L 500.2500, L100.0100 ####[facility] [address] [place], [address] Calcium [Mass/Vol] 9.9 mg/dL Normal 7.6-11.0 [facility] Comment on above: Performed By: #### L 500.2500, L100.0100 ####[facility] [address] [place], [address] Chloride [Moles/Vol] 105 mmol/L Normal 98-108 [facility] Comment on above: Performed By: #### L 500.2500, L100.0100 ####[facility] [address] [place], [address] CO2 [Moles/Vol] 21.1 mmol/L Normal 21.0-32.0 [facility] Comment on above: Performed By: #### L 500.2500, L100.0100 ####[facility] [address] [place], [address] Creatinine [Mass/Vol] 1.55 mg/dL High 0.70-1.20 [facility] Comment on above: Performed By: #### L 500.2500, L100.0100 ####[facility] [address] [place], [address] ECRCL 44.35 ml/min Low 50-250 [facility] Comment on above: Performed By: #### L 500.2500, L100.0100 ####[facility] [address] [place], [address] GAP 14 Normal 5-15 [facility] Comment on above: Performed By: #### L 500.2500, L100.0100 ####[facility] [address] [place], [address] GFR/1.73 sq M.predicted among non-blacks MDRD (S/P/Bld) [Vol rate/Area] 48 mL/min/{1.73_m2} Low >60 [facility] Comment on above: Result Comment: mL/m in/1.73m2 CKD-EPI Creatinine Equation (2020) Performed By: #### L 500.2500, L100.0100 ####[facility] [address] [place], [address] Glucose [Mass/Vol] 85 mg/dL Normal 70-99 [facility] Comment on above: Performed By: #### L 500.2500, L100.0100 ####[facility] [address] [place], [address] Potassium [Moles/Vol] 5.1 mmol/L Normal 3.3-5.1 [facility] Comment on above: Performed By: #### L 500.2500, L100.0100 ####[facility] [address] [place], [address] Sodium [Moles/Vol] 139 mmol/L Normal 133-145 [facility] Comment on above: Performed By: #### L 500.2500, L100.0100 ####[facility] [address] [place], [address] Urea nitrogen [Mass/Vol] 44 mg/dL High 4-19 [facility] Comment on above: Performed By: #### L 500.2500, L100.0100 ####[facility] [address] [place], [address] Basic Metabolic Profile (BMP )on 06-24-2024 EST GFR - AA TNP Normal >60 [facility] Comment on above: Performed By: #### L 500.2500, L100.0100 ####[facility] [address] [place], [address] Respiratory Cultureon 2024 RESPC Normal [facility] Comment on above: Performed By: #### M 100.1999, M100.2400 ####[facility] [address] [place], [address] Basic Metabolic Profile (BMP )on 06-17-2024 EST GFR - AA TNP Normal >60 [facility] Comment on above: Performed By: #### L 500.2499, L100.0100 ####[facility] [address] [place], [address] Chest without Contraston Chest without Contrast Normal [facility] Gram Stainon 06-16-2024 GS Acceptable Specimen? Yes (<25 Epithelial cells per/lpf) Gram Stain 1+ Gram negative rods 2+ Gram positive cocci Rare White Blood Cells Rare Epithelial cells Normal [facility] Comment on above: Performed By: #### M 100.1999, M100.2400 ####[facility] [address] [place], [address] COVID 19 AG RAPID (RN COLLEC T)on 06-15-2024 SARS-CoV-2 (COVID-19) RNA MYA+probe Ql (Unsp spec) Normal [facility] Comment on above: Performed By: #### M 100.505 ####[facility] [address] [place], [address] Chest PA and Lateralon 06-15 Chest PA and Lateral Normal [facility] MR/BMS.BPon 06-15-2024 MR/BMS.BP Normal [facility] RESPIRATORY PANEL MOLECULARo n 06-15-2024 RP PANEL Normal [facility] Comment on above: Performed By: #### M 100.638 ####[facility] [address] [place], [address] Basic Metabolic Profile (BMP )on 06-10-2024 Chloride [Moles/Vol] 104 mmol/L Normal 98-107 [facility] Comment on above: Performed By: #### L 100.0100, L500.2500 ####[facility] [address] [place], [address] CO2 [Moles/Vol] 21.2 mmol/L Normal 21.0-32.0 [facility] Comment on above: Performed By: #### L 100.0100, L500.2500 ####[facility] [address] [place], [address] GAP 14 Normal 5-15 [facility] Comment on above: Performed By: #### L 100.0100, L500.2500 ####[facility] [address] [place], [address] Calcium [Mass/Vol] 9.5 mg/dL Normal 7.6-11.0 [facility] Comment on above: Performed By: #### L 100.0100, L500.2500 ####[facility] [address] [place], [address] EST GFR - AA TNP Normal >60 [facility] Comment on above: Performed By: #### L 100.0100, L500.2500 ####[facility] [address] [place], [address] Potassium [Moles/Vol] 4.9 mmol/L Normal 3.5-5.1 [facility] Comment on above: Performed By: #### L 100.0100, L500.2500 ####[facility] [address] [place], [address] Sodium [Moles/Vol] 139 mmol/L Normal 136-145 [facility] Comment on above: Performed By: #### L 100.0100, L500.2500 ####[facility] [address] [place], [address] CBC W/Diff, Automatedon 05-16 Anisocytosis Ql (Bld) 2+ Normal [facility] Comment on above: Performed By: #### L 100.0100, L500.2500 ####[facility] [address] [place], [address] SMUDGE CELLS 2+ Normal [facility] Comment on above: Performed By: #### L 100.0100, L500.2500 ####[facility] [address] [place], [address] TOXIC GRAN 1+ Normal [facility] Comment on above: Performed By: #### L 100.0100, L500.2500 ####[facility] [address] [place], [address] Basic Metabolic Profile (BMP )on 06-08-2024 Anion gap [Moles/Vol] 12 mmol/L Normal 5-15 [facility] Comment on above: Performed By: #### L 500.2500 ####[facility] [address] [place], [address] BUN/CRE 18.0 RATIO Normal 10-20 [facility] Comment on above: Performed By: #### L 500.2500 ####[facility] [address] [place], [address] Calcium [Mass/Vol] 9.8 mg/dL Normal 7.6-11.0 [facility] Comment on above: Performed By: #### L 500.2500 ####[facility] [address] [place], [address] Chloride [Moles/Vol] 103 mmol/L Normal 96-108 [facility] Comment on above: Performed By: #### L 500.2500 ####[facility] [address] [place], [address] CO2 [Moles/Vol] 22.0 mmol/L Normal 22.0-29.0 [facility] Comment on above: Performed By: #### L 500.2500 ####[facility] [address] [place], [address] Creatinine [Mass/Vol] 1.6 mg/dL High 0.8-1.3 [facility] Comment on above: Performed By: #### L 500.2500 ####[facility] [address] [place], [address] ECRCL 42.96 ml/min Normal [facility] Comment on above: Performed By: #### L 500.2500 ####[facility] [address] [place], [address] GFR/1.73 sq M.predicted among non-blacks MDRD (S/P/Bld) [Vol rate/Area] 47 mL/min/{1.73_m2} Low >60 [facility] Comment on above: Result Comment: mL/m in/1.73m2 CKD-EPI Creatinine Equation (2020) Performed By: #### L 500.2500 ####[facility] [address] [place], [address] Glucose [Mass/Vol] 80 mg/dL Normal 70-99 [facility] Comment on above: Performed By: #### L 500.2500 ####[facility] [address] [place], [address] Potassium [Moles/Vol] 4.9 mmol/L Normal 3.3-5.1 [facility] Comment on above: Performed By: #### L 500.2500 ####[facility] [address] [place], [address] Sodium [Moles/Vol] 137 mmol/L Normal 133-145 [facility] Comment on above: Performed By: #### L 500.2500 ####[facility] [address] [place], [address] Urea nitrogen [Mass/Vol] 28 mg/dL High 4-19 [facility] Comment on above: Performed By: #### L 500.2500 ####[facility] [address] [place], [address] BUN Normal 7-18 [facility] Comment on above: Result Comment: PUTT ING UNDER DIFFERENT REQ Performed By: #### L 500.2500, L100.0500, L100.4500 ####[facility] [address] [place], [address] BUN/CRE Normal 10-20 [facility] Comment on above: Result Comment: PUTT ING UNDER DIFFERENT REQ Performed By: #### L 500.2500, L100.0500, L100.4500 ####[facility] [address] [place], [address] Calcium Normal 8.5-10.1 [facility] Comment on above: Result Comment: PUTT ING UNDER DIFFERENT REQ Performed By: #### L 500.2500, L100.0500, L100.4500 ####[facility] [address] [place], [address] CL Normal 98-107 [facility] Comment on above: Result Comment: PUTT ING UNDER DIFFERENT REQ Performed By: #### L 500.2500, L100.0500, L100.4500 ####[facility] [address] [place], [address] CO2 Normal 21.0-32.0 [facility] Comment on above: Result Comment: PUTT ING UNDER DIFFERENT REQ Performed By: #### L 500.2500, L100.0500, L100.4500 ####[facility] [address] [place], [address] CREAT,SERUM Normal 0.70-1.30 [facility] Comment on above: Result Comment: PUTT ING UNDER DIFFERENT REQ Performed By: #### L 500.2500, L100.0500, L100.4500 ####[facility] [address] [place], [address] eGFR Normal >60 [facility] Comment on above: Result Comment: PUTT ING UNDER DIFFERENT REQ Performed By: #### L 500.2500, L100.0500, L100.4500 ####[facility] [address] [place], [address] EST GFR - AA Normal >60 [facility] Comment on above: Result Comment: PUTT ING UNDER DIFFERENT REQ Performed By: #### L 500.2500, L100.0500, L100.4500 ####[facility] [address] [place], [address] GAP Normal 5-15 [facility] Comment on above: Result Comment: PUTT ING UNDER DIFFERENT REQ Performed By: #### L 500.2500, L100.0500, L100.4500 ####[facility] [address] [place], [address] GLU Normal 74-106 [facility] Comment on above: Result Comment: PUTT ING UNDER DIFFERENT REQ Performed By: #### L 500.2500, L100.0500, L100.4500 ####[facility] [address] [place], [address] Potassium Normal 3.5-5.1 [facility] Comment on above: Result Comment: PUTT ING UNDER DIFFERENT REQ Performed By: #### L 500.2500, L100.0500, L100.4500 ####[facility] [address] [place], [address] Basic Metabolic Profile (BMP) Normal 136-145 [facility] Comment on above: Result Comment: PUTT ING UNDER DIFFERENT REQ Performed By: #### L 500.2500, L100.0500, L100.4500 ####[facility] [address] [place], [address] CBC-Complete Blood Cnt No Di ffon 06-08-2024 Hematocrit (Bld) [Volume fraction] 34.2 % Low 40-54 [facility] Comment on above: Performed By: #### L 500.2500, L100.0500, L100.4500 ####[facility] [address] [place], [address] Hemoglobin (Bld) [Mass/Vol] 10.7 g/dL Low 13.0-16.5 [facility] Comment on above: Performed By: #### L 500.2500, L100.0500, L100.4500 ####[facility] [address] [place], [address] MCH (RBC) [Entitic mass] 35.9 pg High 27.0-32.0 [facility] Comment on above: Performed By: #### L 500.2500, L100.0500, L100.4500 ####[facility] [address] [place], [address] MCHC (RBC) [Mass/Vol] 31.3 g/dL Low 32-36 [facility] Comment on above: Performed By: #### L 500.2500, L100.0500, L100.4500 ####[facility] [address] [place], [address] MCV (RBC) [Entitic vol] 114.8 fL High 80-94 [facility] Comment on above: Performed By: #### L 500.2500, L100.0500, L100.4500 ####[facility] [address] [place], [address] Platelet mean volume (Bld) [Entitic vol] 9.2 fL Normal 6.2-12.0 [facility] Comment on above: Performed By: #### L 500.2500, L100.0500, L100.4500 ####[facility] [address] [place], [address] Platelets (Bld) [#/Vol] 344 10*3/uL Normal 150-450 [facility] Comment on above: Performed By: #### L 500.2500, L100.0500, L100.4500 ####[facility] [address] [place], [address] RBC (Bld) [#/Vol] 2.98 10*6/uL Low 4.6-6.2 [facility] Comment on above: Performed By: #### L 500.2500, L100.0500, L100.4500 ####[facility] [address] [place], [address] WBC (Bld) [#/Vol] 28.7 10*3/uL High 4.4-11.0 [facility] Comment on above: Performed By: #### L 500.2500, L100.0500, L100.4500 ####[facility] [address] [place], [address] Differential Commenton 06-08 SMEAR COMMENT COMMENT Normal [facility] Comment on above: Result Comment: DIMO RPHIC RBC POPULATION SEEN ON SLIDE REVIEW. Performed By: #### L 500.2500, L100.0500, L100.4500 ####[facility] [address] [place], [address] Modified Barium Swallow Stud yon 06-04-2024 Modified Barium Swallow Study Normal [facility] Basic Metabolic Profile (BMP )on 06-03-2024 BUN/CRE 26.5 RATIO High 10-20 [facility] Comment on above: Performed By: #### L 100.0100, L500.2500 ####[facility] [address] [place], [address] CA,Total 9.5 mg/dL Normal 8.5-10.1 [facility] Comment on above: Performed By: #### L 100.0100, L500.2500 ####[facility] [address] [place], [address] Chloride [Moles/Vol] 103 mmol/L Normal 98-107 [facility] Comment on above: Performed By: #### L 100.0100, L500.2500 ####[facility] [address] [place], [address] CO2 [Moles/Vol] 25.0 mmol/L Normal 21.0-32.0 [facility] Comment on above: Performed By: #### L 100.0100, L500.2500 ####[facility] [address] [place], [address] Creatinine [Mass/Vol] 1.70 mg/dL High 0.70-1.30 [facility] Comment on above: Result Comment: The validity of the calculated GFR GFRAA in patients over70 years has not been determined. Clinical correlation isessential. Performed By: #### L 100.0100, L500.2500 ####[facility] [address] [place], [address] ECRCL 40.43 ml/min Normal [facility] Comment on above: Performed By: #### L 100.0100, L500.2500 ####[facility] [address] [place], [address] EST GFR - AA 51 mL/min Low >60 [facility] Comment on above: Result Comment: Afri can Italian GFR Calc Performed By: #### L 100.0100, L500.2500 ####[facility] [address] [place], [address] GAP 9 Normal 5-15 [facility] Comment on above: Performed By: #### L 100.0100, L500.2500 ####[facility] [address] [place], [address] GFR/1.73 sq M.predicted among non-blacks MDRD (S/P/Bld) [Vol rate/Area] 43 mL/min/{1.73_m2} Low >60 [facility] Comment on above: Result Comment: Non- GFR Calc Performed By: #### L 100.0100, L500.2500 ####[facility] [address] [place], [address] Glucose [Mass/Vol] 120 mg/dL High 74-106 [facility] Comment on above: Result Comment: Fast ing Glucose result from 100 to 125 mg/dLsuggests IMPAIRED HOMEOSTASIS per A.D.A. criteria. Performed By: #### L 100.0100, L500.2500 ####[facility] [address] [place], [address] Potassium [Moles/Vol] 4.6 mmol/L Normal 3.5-5.1 [facility] Comment on above: Performed By: #### L 100.0100, L500.2500 ####[facility] [address] [place], [address] Sodium [Moles/Vol] 137 mmol/L Normal 136-145 [facility] [facility] Comment on above: Performed By: #### L 100.0100, L500.2500 ####[facility] [address] [place], [address] Urea nitrogen [Mass/Vol] 45 mg/dL High 7-18 [facility] Comment on above: Performed By: #### L 100.0100, L500.2500 ####[facility] [address] [place], [address] CBC W/Diff, Automatedon 05-16 PATH REV Reviewed Normal [facility] Comment on above: Result Comment: Abso lute lymphocytosis suggestive of low grade lympho-proliferative disorder.Macrocytic anemia.Clinical correlation is necessary.Prashanth Machado M.D. 06/03/24 AMENDED REPORT 06/03/24 1423 PATH REV previously reported as: August Performed By: #### L 100.0100, L500.2500 ####[facility] [address] [place], [address] Consultation - Infectious Dx on 06-03-2024 Consultation - Infectious Dx Normal [facility] Consultation - Surgicalon Consultation - Surgical Normal [facility] HH, Hemoglobin AND Hematocri ton 06-03-2024 Hematocrit (Bld) [Volume fraction] 31.5 % Low 40-54 [facility] Comment on above: Performed By: #### L 100.0600 ####[facility] [address] [place], [address] Hemoglobin (Bld) [Mass/Vol] 10.5 g/dL Low 13.0-16.5 [facility] Comment on above: Performed By: #### L 100.0600 ####[facility] [address] [place], [address] Venous Duplex US, Unilateral on 06-03-2024 Venous Duplex US, Unilateral Normal [facility] Abdomen/Pelvis WITH Contrast on 06-02-2024 Abdomen/Pelvis WITH Contrast Normal [facility] COVID 19 AG RAPID (RN COLLEKarsten T)on 06-02-2024 SARS-CoV-2 (COVID-19) RNA MYA+probe Ql (Unsp spec) Normal [facility] Comment on above: Performed By: #### M 100.505 ####[facility] [address] [place], [address] Consultation - Urologyon Consultation - Urology Normal [facility] Respiratory Cultureon 2024 RESPC Normal [facility] Comment on above: Performed By: #### M 100.2400, M100.2000 ####[facility] [address] [place], [address] BRCon 06-01-2024 RC Normal [facility] Comment on above: Result Comment: [id number] BN RC TRANSFUSED 06/02/24 [id number] BN RC TRANSFUSED 06/02/24 1507 Performed By: #### B RC, BTS ####[facility] [address] [place], [address] HH, Hemoglobin AND Hematocri ton 06-01-2024 Hematocrit (Bld) [Volume fraction] 24.2 % Low 40-54 [facility] Comment on above: Performed By: #### L 100.0600 ####[facility] [address] [place], [address] Hemoglobin (Bld) [Mass/Vol] 7.7 g/dL Low 13.0-16.5 [facility] Comment on above: Performed By: #### L 100.0600 ####[facility] [address] [place], [address] MR/CON.PCM.GIon 06-01-2024 MR/CON.PCM.GI Normal [facility] Type AND Screenon 06-01-2024 Ab SCREEN GEL Negative Normal [facility] Comment on above: Order Comment: CMV N EG? NNumber of units to transfuse: 2Reason for Ordering Blood: AcuteAre the blood/blood products to be transfused? YIs the patient having/had surgery? YWhen ReadyNYFRACTURED HIP Performed By: #### B RC, BTS ####[facility] [address] [place], [address] CBC W/Diff, Automatedon 05-15 PATH REV Reviewed Normal [facility] Comment on above: Result Comment: Abso lute lymphocytosis suggestive of low grade lympho-proliferative disorder.Macrocytic anemia.Clinical correlation is necessary.Prashanth Machado M.D. 05/31/24 AMENDED REPORT 05/31/24 1608 PATH REV previously reported as: August Performed By: #### L 100.0100 ####[facility] [address] [place], [address] HH, Hemoglobin AND Hematocri ton 05-31-2024 Hematocrit (Bld) [Volume fraction] 25.3 % Low 40-54 [facility] Comment on above: Performed By: #### L 100.0600 ####[facility] [address] [place], [address] Hemoglobin (Bld) [Mass/Vol] 8.2 g/dL Low 13.0-16.5 [facility] Comment on above: Performed By: #### L 100.0600 ####[facility] [address] [place], [address] HIP, UNI W/ Pelvis 2-3 Views on 05-31-2024 HIP, UNI W/ Pelvis 2-3 Views Normal [facility] Stool Occult Blood iFOBon STOB Normal [facility] Comment on above: Performed By: #### M 100.7900 ####[facility] [address] [place], [address] Gram Stainon 05-30-2024 GS List Antibiotics [place] 48 Hours? none List Antibiotics to be Started? cefdinir, zithromax Acceptable Specimen? Yes (<25 Epithelial cells per/lpf) Gram Stain 2+ White Blood Cells 2+ Gram negative rods Rare Yeast Like Organisms Rare Epithelial cells Normal [facility] Comment on above: Performed By: #### M 100.2400, M100.2000 ####[facility] [address] [place], [address] HH, Hemoglobin AND Hematocri ton 05-30-2024 Hematocrit (Bld) [Volume fraction] 26.2 % Low 40-54 [facility] Comment on above: Performed By: #### L 100.0600 ####[facility] [address] [place], [address] Hemoglobin (Bld) [Mass/Vol] 8.5 g/dL Low 13.0-16.5 [facility] Comment on above: Performed By: #### L 100.0600 ####[facility] [address] [place], [address] RESPIRATORY PANEL MOLECULARo n 05-30-2024 RP PANEL Normal [facility] Comment on above: Performed By: #### M 100.638 ####[facility] [address] [place], [address] Basic Metabolic Profile (BMP )on 05-29-2024 BUN/CRE 21.9 RATIO High 10-20 [facility] Comment on above: Performed By: #### L 500.2500 ####[facility] [address] [place], [address] CA,Total 9.3 mg/dL Normal 8.5-10.1 [facility] Comment on above: Performed By: #### L 500.2500 ####[facility] [address] [place], [address] Chloride [Moles/Vol] 105 mmol/L Normal 98-107 [facility] Comment on above: Performed By: #### L 500.2500 ####[facility] [address] [place], [address] CO2 [Moles/Vol] 20.0 mmol/L Low 21.0-32.0 [facility] Comment on above: Performed By: #### L 500.2500 ####[facility] [address] [place], [address] Creatinine [Mass/Vol] 1.51 mg/dL High 0.70-1.30 [facility] Comment on above: Result Comment: The validity of the calculated GFR GFRAA in patients over70 years has not been determined. Clinical correlation isessential. Performed By: #### L 500.2500 ####[facility] [address] [place], [address] ECRCL 45.52 ml/min Normal [facility] Comment on above: Performed By: #### L 500.2500 ####[facility] [address] [place], [address] EST GFR - AA 59 mL/min Low >60 [facility] Comment on above: Result Comment: Afri can Italian GFR Calc Performed By: #### L 500.2500 ####[facility] [address] [place], [address] GAP 9 Normal 5-15 [facility] Comment on above: Performed By: #### L 500.2500 ####[facility] [address] [place], [address] GFR/1.73 sq M.predicted among non-blacks MDRD (S/P/Bld) [Vol rate/Area] 49 mL/min/{1.73_m2} Low >60 [facility] Comment on above: Result Comment: Non- GFR Calc Performed By: #### L 500.2500 ####[facility] [address] [place], [address] Glucose [Mass/Vol] 132 mg/dL High 74-106 [facility] Comment on above: Result Comment: Fast ing Glucose result greater than or equal to 126 mg/dLsuggests DIABETES MELLITUS per A.D.A. criteria. Performed By: #### L 500.2500 ####[facility] [address] [place], [address] Potassium [Moles/Vol] 4.3 mmol/L Normal 3.5-5.1 [facility] Comment on above: Performed By: #### L 500.2500 ####[facility] [address] [place], [address] Sodium [Moles/Vol] 134 mmol/L Low 136-145 [facility] Comment on above: Performed By: #### L 500.2500 ####[facility] [address] [place], [address] Urea nitrogen [Mass/Vol] 33 mg/dL High 7-18 [facility] Comment on above: Performed By: #### L 500.2500 ####[facility] [address] [place], [address] CBC W/Diff, Automatedon 05-15 Absolute Neut Normal 2.0-7.7 [facility] Comment on above: Result Comment: Canc elled via OM: Duplicate Order Performed By: #### L 100.0100 ####[facility] [address] [place], [address] HCT Normal 40-54 [facility] Comment on above: Result Comment: Canc elled via OM: Duplicate Order Performed By: #### L 100.0100 ####[facility] [address] [place], [address] HGB Normal 13.0-16.5 [facility] Comment on above: Result Comment: Canc elled via OM: Duplicate Order Performed By: #### L 100.0100 ####[facility] [address] [place], [address] MCH Normal 27.0-32.0 [facility] Comment on above: Result Comment: Canc elled via OM: Duplicate Order Performed By: #### L 100.0100 ####[facility] [address] [place], [address] MCHC Normal 32-36 [facility] Comment on above: Result Comment: Canc elled via OM: Duplicate Order Performed By: #### L 100.0100 ####[facility] [address] [place], [address] MCV Normal 80-94 [facility] Comment on above: Result Comment: Canc elled via OM: Duplicate Order Performed By: #### L 100.0100 ####[facility] [address] [place], [address] NEUT% Normal 47-70 [facility] Comment on above: Result Comment: Canc elled via OM: Duplicate Order Performed By: #### L 100.0100 ####[facility] [address] [place], [address] PLT Normal 150-450 [facility] Comment on above: Result Comment: Canc elled via OM: Duplicate Order Performed By: #### L 100.0100 ####[facility] [address] [place], [address] RBC Normal 4.6-6.2 [facility] Comment on above: Result Comment: Canc elled via OM: Duplicate Order Performed By: #### L 100.0100 ####[facility] [address] [place], [address] RDW CV Normal 11.6-14.6 [facility] Comment on above: Result Comment: Canc elled via OM: Duplicate Order Performed By: #### L 100.0100 ####[facility] [address] [place], [address] RDW SD Normal 35.1-43.9 [facility] Comment on above: Result Comment: Canc elled via OM: Duplicate Order Performed By: #### L 100.0100 ####[facility] [address] [place], [address] WBC Normal 4.4-11.0 [facility] Comment on above: Result Comment: Bettina naranjo via OM: Duplicate Order Performed By: #### L 100.0100 ####[facility] [address] [place], [address] COVID 19 AG RAPID (RN PATRICIO Carey)on 05-29-2024 SARS-CoV-2 (COVID-19) RNA MYA+probe Ql (Unsp spec) Normal [facility] Comment on above: Performed By: #### M 100.505 ####[facility] [address] [place], [address] Chest PA and Lateralon 05-29 Chest PA and Lateral Normal [facility] HH, Hemoglobin AND Hematocri ton 05-29-2024 Hematocrit (Bld) [Volume fraction] 25.2 % Low 40-54 [facility] Comment on above: Performed By: #### L 100.0600 ####[facility] [address] [place], [address] Hemoglobin (Bld) [Mass/Vol] 8.3 g/dL Low 13.0-16.5 [facility] Comment on above: Performed By: #### L 100.0600 ####[facility] [address] [place], [address] HIP, UNI W/ Pelvis 2-3 Views on 05-29-2024 HIP, UNI W/ Pelvis 2-3 Views Normal [facility] Iron+Iron Binding Capacityon 05-29-2024 Iron [Mass/Vol] 29 ug/dL Low 65-175 [facility] Comment on above: Performed By: #### L 503.6030 ####[facility] [address] [place], [address] IRON SATURATION 10.2 Low 15.0-55.0 [facility] Comment on above: Performed By: #### L 503.6030 ####[facility] [address] [place], [address] TIBC 283 ug/dL Normal 250-450 [facility] Comment on above: Performed By: #### L 503.6030 ####[facility] [address] [place], [address] HH, Hemoglobin AND Hematocri ton 05-28-2024 Hematocrit (Bld) [Volume fraction] 27.5 % Low 40-54 [facility] Comment on above: Performed By: #### L 100.0600 ####[facility] [address] [place], [address] Hemoglobin (Bld) [Mass/Vol] 8.9 g/dL Low 13.0-16.5 [facility] Comment on above: Performed By: #### L 100.0600 ####[facility] [address] [place], [address] L7000.0750on 05-28-2024 P ELASTASE,FECA 315 Normal >200 [facility] Comment on above: Result Comment: Resu lt Units: ug Elast./g Severe Pancreatic Insufficiency: <100 Moderate Pancreatic Insufficiency: 100 - 200 Normal: >200 Performed By: #### L 7000.0750, L7000.0300, L7000.0700 ####[facility] [address] [place], [address] Basic Metabolic Profile (BMP )on 05-27-2024 BUN/CRE 22.3 RATIO High 10-20 [facility] Comment on above: Performed By: #### L 500.2500, L100.0100 ####[facility] [address] [place], [address] CA,Total 8.7 mg/dL Normal 8.5-10.1 [facility] Comment on above: Performed By: #### L 500.2500, L100.0100 ####[facility] [address] [place], [address] Chloride [Moles/Vol] 108 mmol/L High 98-107 [facility] Comment on above: Performed By: #### L 500.2500, L100.0100 ####[facility] [address] [place], [address] CO2 [Moles/Vol] 24.0 mmol/L Normal 21.0-32.0 [facility] Comment on above: Performed By: #### L 500.2500, L100.0100 ####[facility] [address] [place], [address] Creatinine [Mass/Vol] 1.48 mg/dL High 0.70-1.30 [facility] Comment on above: Result Comment: The validity of the calculated GFR GFRAA in patients over70 years has not been determined. Clinical correlation isessential. Performed By: #### L 500.2500, L100.0100 ####[facility] [address] [place], [address] EST GFR - AA 60 mL/min Normal >60 [facility] Comment on above: Result Comment: Afri can Italian GFR Calc Performed By: #### L 500.2500, L100.0100 ####[facility] [address] [place], [address] GAP 8 Normal 5-15 [facility] Comment on above: Performed By: #### L 500.2500, L100.0100 ####[facility] [address] [place], [address] GFR/1.73 sq M.predicted among non-blacks MDRD (S/P/Bld) [Vol rate/Area] 50 mL/min/{1.73_m2} Low >60 [facility] Comment on above: Result Comment: Non- GFR Calc Performed By: #### L 500.2500, L100.0100 ####[facility] [address] [place], [address] Glucose [Mass/Vol] 89 mg/dL Normal 74-106 [facility] Comment on above: Performed By: #### L 500.2500, L100.0100 ####[facility] [address] [place], [address] Potassium [Moles/Vol] 4.1 mmol/L Normal 3.5-5.1 [facility] Comment on above: Performed By: #### L 500.2500, L100.0100 ####[facility] [address] [place], [address] Sodium [Moles/Vol] 139 mmol/L Normal 136-145 [facility] Comment on above: Performed By: #### L 500.2500, L100.0100 ####[facility] [address] [place], [address] Urea nitrogen [Mass/Vol] 33 mg/dL High 7-18 [facility] Comment on above: Performed By: #### L 500.2500, L100.0100 ####[facility] [address] [place], [address] CBC W/Diff, Automatedon 05-15 PATH REV Reviewed Normal [facility] Comment on above: Result Comment: Abso lute lymphocytosis suggestive of low grade lympho-proliferative disorder.Macrocytic anemia.Clinical correlation is necessary.Prashanth Machado M.D. 05/27/24 AMENDED REPORT 05/27/24 1504 PATH REV previously reported as: August kathe Performed By: #### L 500.2500, L100.0100 ####[facility] [address] [place], [address] .GFRon 05-26-2024 Estimated Glomerular Filtration Rate 52 ml/min/1.73sqm Normal [facility] Comment on above: Result Comment: Stages of Chronic Kidney Disease (CKD) Stage Description eGFR(ml/min/1.73 sq.m.) CKD 1 Normal kidney function or >=90 normal kindney function with possible kidney damage (ex. Proteinuria) CKD 2 Kidney damage with mild loss 60-89 of kidney function CKD 3a Mild to moderate loss of kidney 45-59 function CKD 3b Moderate to severe loss of 30-44 of kindey function CKD 4 Severe loss of kidney function 15-29 CKD 5 Kidney failure <15 Note: (go live 2024) the eGFR calculation was updated to the 2020 CKD-EPI creatinine equation without a race factor to calculate the eGFR results. Performed By: #### D IFF, GFR, BMP, MORPH, CBC #### [place] [address] .Manual Diffon 05-26-2024 Basophil %, Manual 0.0 % Normal 0.0-2.5 [facility] Comment on above: Performed By: #### D IFF, GFR, BMP, MORPH, CBC #### [place] [address] Basophil, Abs Manual 0.0 10 3/mcL Normal 0.0-0.3 [facility] Comment on above: Performed By: #### D IFF, GFR, BMP, MORPH, CBC #### [place] [address] Eosinophil %, Manual 0.0 % Normal 0.0-6.0 [facility] Comment on above: Performed By: #### D IFF, GFR, BMP, MORPH, CBC #### [place] [address] Eosinophil, Abs Manual 0.0 10 3/mcL Normal 0.0-0.7 [facility] Comment on above: Performed By: #### D IFF, GFR, BMP, MORPH, CBC #### [place] [address] Lymphocyte %, Manual 90.0 % High 20.0-40.0 [facility] Comment on above: Performed By: #### D IFF, GFR, BMP, MORPH, CBC #### [place] [address] Lymphocyte, Abs Manual 15.9 10 3/mcL High 0.9-4.3 [facility] Comment on above: Performed By: #### D IFF, GFR, BMP, MORPH, CBC #### [place] [address] Monocyte %, Manual 0.0 % Low 2.0-13.0 [facility] Comment on above: Performed By: #### D IFF, GFR, BMP, MORPH, CBC #### [place] [address] Monocyte, Abs Manual 0.0 10 3/mcL Low 0.1-1.4 [facility] Comment on above: Performed By: #### D IFF, GFR, BMP, MORPH, CBC #### [place] [address] Neutrophil %, Manual 10.0 % Low 50.0-75.0 [facility] Comment on above: Performed By: #### D IFF, GFR, BMP, MORPH, CBC #### [place] [address] Neutrophil, Abs Manual 1.8 10 3/mcL Low 2.3-8.1 [facility] Comment on above: Performed By: #### D IFF, GFR, BMP, MORPH, CBC #### [place] [address] Nucleated RBC 0.0 /100 WBC Normal [facility] Comment on above: Performed By: #### D IFF, GFR, BMP, MORPH, CBC #### [place] [address] .Morphon 05-26-2024 Anisocytosis Ql (Bld) 2+ Normal [facility] Comment on above: Performed By: #### D IFF, GFR, BMP, MORPH, CBC #### [place] [address] Hypochrom 1+ Normal [facility] Comment on above: Performed By: #### D IFF, GFR, BMP, MORPH, CBC #### [place] [address] Macrocytosis 3+ Normal [facility] Comment on above: Performed By: #### D IFF, GFR, BMP, MORPH, CBC #### [address] [address] Ovalocytes 1+ Normal [facility] Comment on above: Performed By: #### D IFF, GFR, BMP, MORPH, CBC #### [address] [address] Platelet Estimate Normal Normal [facility] Comment on above: Performed By: #### D IFF, GFR, BMP, MORPH, CBC #### [address] [address] Poik 2+ Normal [facility] Comment on above: Performed By: #### D IFF, GFR, BMP, MORPH, CBC #### [address] [address] BMPon 05-26-2024 BUN/Creatinine Ratio 20.1 ratio Normal 10.0-22.0 [facility] Comment on above: Performed By: #### D IFF, GFR, BMP, MORPH, CBC #### [address] [address] Calcium [Mass/Vol] 9.1 mg/dL Normal 8.7-10.4 [facility] Comment on above: Performed By: #### D IFF, GFR, BMP, MORPH, CBC #### [place] [id number] Chloride [Moles/Vol] 108 mmol/L Normal 98-110 [facility] Comment on above: Performed By: #### D IFF, GFR, BMP, MORPH, CBC #### [address] [address] CO2 [Moles/Vol] 25 mmol/L Normal 22-32 [facility] Comment on above: Performed By: #### D IFF, GFR, BMP, MORPH, CBC #### [address] [address] Creatinine [Mass/Vol] 1.44 mg/dL High 0.60-1.40 [facility] Comment on above: Result Comment: Test ing performed on [employer] analyzer using enzymatic creatinine methodology. Performed By: #### D IFF, GFR, BMP, MORPH, CBC #### [address] [address] Electrolyte Balance 9.0 mEq/L Normal 4.0-15.0 [facility] Comment on above: Performed By: #### D IFF, GFR, BMP, MORPH, CBC #### [address] [address] Glucose [Mass/Vol] 97 mg/dL Normal 82-115 [facility] Comment on above: Performed By: #### D IFF, GFR, BMP, MORPH, CBC #### [place] [address] Potassium [Moles/Vol] 3.9 mmol/L Normal 3.5-5.0 [facility] Comment on above: Performed By: #### D IFF, GFR, BMP, MORPH, CBC #### [place] [id number] Sodium [Moles/Vol] 142 mmol/L Normal 136-145 [facility] Comment on above: Performed By: #### D IFF, GFR, BMP, MORPH, CBC #### [place] [address] Urea nitrogen [Mass/Vol] 29.0 mg/dL High 8.0-22.0 [facility] Comment on above: Performed By: #### D IFF, GFR, BMP, MORPH, CBC #### [address] [address] CBCon 05-26-2024 Erythrocyte distribution width (RBC) [Ratio] 31.3 % High 11.5-15.5 [facility] Comment on above: Performed By: #### D IFF, GFR, BMP, MORPH, CBC #### [address] [address] Hematocrit (Bld) [Volume fraction] 24.3 % Low 40.0-52.0 [facility] Comment on above: Performed By: #### D IFF, GFR, BMP, MORPH, CBC #### [place] [id number] Hgb 8.1 G/dL Low 13.0-17.5 [facility] Comment on above: Performed By: #### D IFF, GFR, BMP, MORPH, CBC #### [place] [address] MCH (RBC) [Entitic mass] 40.6 pg High 27.0-33.0 [facility] Comment on above: Performed By: #### D IFF, GFR, BMP, MORPH, CBC #### [place] [address] MCHC 33.4 G/dL Normal 32.0-36.0 [facility] Comment on above: Performed By: #### D IFF, GFR, BMP, MORPH, CBC #### [place] [address] MCV (RBC) [Entitic vol] 121.5 fL High 81.0-100.0 [facility] Comment on above: Performed By: #### D IFF, GFR, BMP, MORPH, CBC #### [place] [address] Platelet 188 10 3/mcL Normal 150-450 [facility] Comment on above: Performed By: #### D IFF, GFR, BMP, MORPH, CBC #### [place] [address] Platelet mean volume (Bld) [Entitic vol] 7.2 fL Normal 6.4-10.5 [facility] Comment on above: Performed By: #### D IFF, GFR, BMP, MORPH, CBC #### [place] [address] RBC 2.00 10 6/mcL Low 4.50-6.00 [facility] Comment on above: Performed By: #### D IFF, GFR, BMP, MORPH, CBC #### [place] [address] WBC 17.7 10 3/mcL High 4.5-10.8 [facility] Comment on above: Performed By: #### D IFF, GFR, BMP, MORPH, CBC #### [place] [address] Calprotectin, Stoolon [address] 30 ug/g Normal 0-120 [facility] Comment on above: Order Comment: Test( s) [id number], Neutral; [id number], Totalwas developed and its performance characteristicsdetermined by [employer]. It has not been cleared or approvedby the Food and Drug Administration. Result Comment: Conc entration Interpretation Follow-Up< 5 - 50 ug/g Normal None>50 -120 ug/g Borderline Re-evaluate in 4-6 weeks >120 ug/g Abnormal Repeat as clinically indicatedPerformed at: [facility] [address] [id number] Director: Jorge Chatterjee PhD, Phone: [phone] at: [facility] [address] [id number] Director: Danny Shea MD, Phone: [phone] Performed By: #### L 7000.0750, L7000.0300, L7000.0700 ####[facility] [address] [place], [place], [id number] Fecal Fat, Qualitativeon FATS, NEUTRAL Normal Normal . [facility] Comment on above: Order Comment: Test( s) [id number], Neutral; [id number], Totalwas developed and its performance characteristicsdetermined by [employer] It has not been cleared or approvedby the Food and Drug Administration. Result Comment: Norm al (<60 Droplets/HPF) Performed By: #### L 7000.0750, L7000.0300, L7000.0700 ####[facility] [address] [place], [place], [id number] FATS, TOTAL Normal Normal . [facility] Comment on above: Order Comment: Test( s) [id number], Neutral; [id number], Totalwas developed and its performance characteristicsdetermined by [facility]. It has not been cleared or approvedby the Food and Drug Administration. Result Comment: Norm al (<100 Droplets/HPF) Performed By: #### L 7000.0750, L7000.0300, L7000.0700 ####[facility] [address] [place], [address] LABORATORYOrdered By: SYSTEM SYSTEM on 05-26-2024 Anisocytosis Ql (Bld) 2+ *NA* (05/26/24 7:09 AM) Invalid Interpretation Code Workflow SS Basophils (Bld) [#/Vol] 0.0 103/mcL Normal 0.0 - 0.3 10^3/mcL Workflow SS Basophils/100 WBC (Bld) 0.0 % Normal 0.0 - 2.5 % AH Workflow SS Calcium [Mass/Vol] 9.1 mg/dL Normal 8.7 - 10. 4 mg/dL ADM SS Chloride [Moles/Vol] 108 mmol/L Normal 98 - 11 0 mEq/L ADM SS CO2 [Moles/Vol] 25 mmol/L Normal 22 - 32 mEq/L ADM SS Creatinine [Mass/Vol] 1.44 mg/dL High 0.60 - 1.40 mg/dL ADM SS Comment on above: Interpretive Data: T esting performed on [employer] analyzer using enzymatic creatinine methodology. Electrolyte Balance 9.0 mEq/L Normal 4.0 - 15 .0 mEq/L ADM SS Eosinophils (Bld) [#/Vol] 0.0 103/mcL Normal 0.0 - 0.7 10^3/mcL AH Workflow SS Eosinophils/100 WBC (Bld) 0.0 % Normal 0.0 - 6.0 % Workflow SS Erythrocyte distribution width (RBC) [Ratio] 31.3 % High 11.5 - 15.5 % Workflow SS Estimated Glomerular Filtration Rate 52 ml/min/1.73sqm Invalid Interpretation Code Chemistry S Comment on above: Interpretive Data: Stages of Chronic Kidney Disease (CKD) Stage Description eGFR(ml/min/1.73 sq.m.) CKD 1 Normal kidney function or >=90 normal kindney function with possible kidney damage (ex. Proteinuria) CKD 2 Kidney damage with mild loss 60-89 of kidney function CKD 3a Mild to moderate loss of kidney 45-59 function CKD 3b Moderate to severe loss of 30-44 of kindey function CKD 4 Severe loss of kidney function 15-29 CKD 5 Kidney failure <15 Note: (go live 2024) the eGFR calculation was updated to the 2020 CKD-EPI creatinine equation without a race factor to calculate the eGFR results. Glucose [Mass/Vol] 97 mg/dL Normal 82 - 115 mg/dL AH ADM SS Hematocrit (Bld) [Volume fraction] 24.3 % Low 40.0 - 52.0 % AH Workflow SS Hemoglobin (Bld) [Mass/Vol] 8.1 G/dL Low 13.0 - 17.5 G/dL AH Workflow SS Hypochromia Ql (Bld) 1+ *NA* (05/26/24 7:09 AM) Invalid Interpretation Code AH Workflow SS Lymphocytes (Bld) [#/Vol] 15.9 103/mcL High 0.9 - 4.3 10^3/mcL AH Workflow SS Lymphocytes/100 WBC (Bld) 90.0 % High 20.0 - 40.0 % AH Workflow SS Macrocytes Ql (Bld) 3+ *NA* (05/26/24 7:09 AM) Invalid Interpretation Code AH Workflow SS MCH (RBC) [Entitic mass] 40.6 pg High 27.0 - 33.0 pg AH Workflow SS MCHC 33.4 G/dL Normal 32.0 - 36.0 G/dL AH Workflow SS MCV (RBC) [Entitic vol] 121.5 fL High 81.0 - 100.0 fL AH Workflow SS Monocytes (Bld) [#/Vol] 0.0 103/mcL Low 0.1 - 1.4 10^3/mcL AH Workflow SS Monocytes/100 WBC (Bld) 0.0 % Low 2.0 - 13.0 % AH Workflow SS Neutrophils (Bld) [#/Vol] 1.8 103/mcL Low 2.3 - 8.1 10^3/mcL AH Workflow SS Neutrophils/100 WBC (Bld) 10.0 % Low 50.0 - 75.0 % AH Workflow SS Nucleated RBC 0.0 /100 WBC Invalid Interpretation Code AH Workflow SS Ovalocytes LM Ql (Bld) 1+ *NA* (05/26/24 7:09 AM) Invalid Interpretation Code AH Workflow SS Platelet mean volume (Bld) [Entitic vol] 7.2 fL Normal 6.4 - 10.5 fL AH Workflow SS Platelets (Bld) [#/Vol] 188 103/mcL Normal 150 - 450 10^3/mcL AH Workflow SS Platelets LM Ql (Bld) Normal *NA* (05/26/24 7:09 AM) Invalid Interpretation Code AH Workflow SS Poikilocytosis LM Ql (Bld) 2+ *NA* (05/26/24 7:09 AM) Invalid Interpretation Code AH Workflow SS Potassium [Moles/Vol] 3.9 mmol/L Normal 3.5 - 5.0 mEq/L AH ADM SS RBC (Bld) [#/Vol] 2.00 106/mcL Low 4.50 - 6.0 0 10^6/mcL AH Workflow SS Sodium [Moles/Vol] 142 mmol/L Normal 136 - 145 mEq/L AH ADM SS Urea nitrogen [Mass/Vol] 29.0 mg/dL High 8.0 - 22.0 mg/dL ADM SS Urea nitrogen/Creatinine [Mass ratio] 20.1 ratio Normal 10.0 - 22.0 ratio AH ADM SS WBC (Bld) [#/Vol] 17.7 103/mcL High 4.5 - 10.8 10^3/mcL AH Workflow SS .GFRon 05-25-2024 Estimated Glomerular Filtration Rate 58 ml/min/1.73sqm Normal [facility] Comment on above: Result Comment: Stages of Chronic Kidney Disease (CKD) Stage Description eGFR(ml/min/1.73 sq.m.) CKD 1 Normal kidney function or >=90 normal kindney function with possible kidney damage (ex. Proteinuria) CKD 2 Kidney damage with mild loss 60-89 of kidney function CKD 3a Mild to moderate loss of kidney 45-59 function CKD 3b Moderate to severe loss of 30-44 of kindey function CKD 4 Severe loss of kidney function 15-29 CKD 5 Kidney failure <15 Note: (go live 2024) the eGFR calculation was updated to the 2020 CKD-EPI creatinine equation without a race factor to calculate the eGFR results. Performed By: #### D IFF, BMP, CBC, GFR, MORPH #### [place] [address] .Manual Diffon 05-25-2024 Basophil %, Manual 0.0 % Normal 0.0-2.5 [facility] Comment on above: Performed By: #### D IFF, BMP, CBC, GFR, MORPH #### [address] [address] Basophil, Abs Manual 0.0 10 3/mcL Normal 0.0-0.3 [facility] Comment on above: Performed By: #### D IFF, BMP, CBC, GFR, MORPH #### [address] [address] Eosinophil %, Manual 0.0 % Normal 0.0-6.0 [facility] Comment on above: Performed By: #### D IFF, BMP, CBC, GFR, MORPH #### [address] [address] Eosinophil, Abs Manual 0.0 10 3/mcL Normal 0.0-0.7 [facility] Comment on above: Performed By: #### D IFF, BMP, CBC, GFR, MORPH #### [address] [address] Lymphocyte %, Manual 92.0 % High 20.0-40.0 [facility] Comment on above: Performed By: #### D IFF, BMP, CBC, GFR, MORPH #### [address] [address] Lymphocyte, Abs Manual 18.3 10 3/mcL High 0.9-4.3 [facility] Comment on above: Performed By: #### D IFF, BMP, CBC, GFR, MORPH #### [address] [address] Monocyte %, Manual 0.0 % Low 2.0-13.0 [facility] Comment on above: Performed By: #### D IFF, BMP, CBC, GFR, MORPH #### [address] [address] Monocyte, Abs Manual 0.0 10 3/mcL Low 0.1-1.4 [facility] Comment on above: Performed By: #### D IFF, BMP, CBC, GFR, MORPH #### [address] [address] Neutrophil %, Manual 8.0 % Low 50.0-75.0 [facility] Comment on above: Performed By: #### D IFF, BMP, CBC, GFR, MORPH #### [place] [address] Neutrophil, Abs Manual 1.6 10 3/mcL Low 2.3-8.1 [facility] Comment on above: Performed By: #### D IFF, BMP, CBC, GFR, MORPH #### [place] [address] Nucleated RBC 0.0 /100 WBC Normal [facility] Comment on above: Performed By: #### D IFF, BMP, CBC, GFR, MORPH #### [place] [address] .Morphon 05-25-2024 Anisocytosis Ql (Bld) 2+ Normal [facility] Comment on above: Performed By: #### D IFF, BMP, CBC, GFR, MORPH #### [place] [address] Hypochrom 1+ Normal [facility] Comment on above: Performed By: #### D IFF, BMP, CBC, GFR, MORPH #### [place] [address] Macrocytosis 3+ Normal [facility] Comment on above: Performed By: #### D IFF, BMP, CBC, GFR, MORPH #### [place] [address] Platelet Estimate Normal [facility] Comment on above: Performed By: #### D IFF, BMP, CBC, GFR, MORPH #### [place] [address] Poik 1+ Normal [facility] Comment on above: Performed By: #### D IFF, BMP, CBC, GFR, MORPH #### [place] [address] Polychrom 1+ [facility] Comment on above: Performed By: #### D IFF, BMP, CBC, GFR, MORPH #### [place] [address] Smudge Cells 1+ Normal [facility] Comment on above: Performed By: #### D IFF, BMP, CBC, GFR, MORPH #### [address] [address] Stomatocytes 1+ Normal [facility] Comment on above: Performed By: #### D IFF, BMP, CBC, GFR, MORPH #### [address] [address] Tear Cell 1+ Normal [facility] Comment on above: Performed By: #### D IFF, BMP, CBC, GFR, MORPH #### [address] [address] Differential Comment See Below Normal [facility] Comment on above: Result Comment: Diff erential performed on albumin smear Performed By: #### D IFF, BMP, CBC, GFR, MORPH #### [address] [address] BMPon 05-25-2024 BUN/Creatinine Ratio 17.3 ratio Normal 10.0-22.0 [facility] Comment on above: Performed By: #### D IFF, BMP, CBC, GFR, MORPH #### [address] [address] Calcium [Mass/Vol] 9.1 mg/dL Normal 8.7-10.4 [facility] Comment on above: Performed By: #### D IFF, BMP, CBC, GFR, MORPH #### [address] [address] Chloride [Moles/Vol] 108 mmol/L Normal 98-110 [facility] Comment on above: Performed By: #### D IFF, BMP, CBC, GFR, MORPH #### [address] [address] CO2 [Moles/Vol] 23 mmol/L Normal 22-32 [facility] Comment on above: Performed By: #### D IFF, BMP, CBC, GFR, MORPH #### [address] [address] Creatinine [Mass/Vol] 1.33 mg/dL Normal 0.60-1.40 [facility] Comment on above: Result Comment: Test ing performed on [employer] analyzer using enzymatic creatinine methodology. Performed By: #### D IFF, BMP, CBC, GFR, MORPH #### [address] [address] Electrolyte Balance 9.0 mEq/L Normal 4.0-15.0 [facility] Comment on above: Performed By: #### D IFF, BMP, CBC, GFR, MORPH #### [address] [address] Glucose [Mass/Vol] 131 mg/dL High 82-115 [facility] Comment on above: Performed By: #### D IFF, BMP, CBC, GFR, MORPH #### [place] [id number] Potassium [Moles/Vol] 4.4 mmol/L Normal 3.5-5.0 [facility] Comment on above: Performed By: #### D IFF, BMP, CBC, GFR, MORPH #### [place] [id number] Sodium [Moles/Vol] 140 mmol/L Normal 136-145 [facility] Comment on above: Performed By: #### D IFF, BMP, CBC, GFR, MORPH #### [place] [id number] Urea nitrogen [Mass/Vol] 23.0 mg/dL High 8.0-22.0 [facility] Comment on above: Performed By: #### D IFF, BMP, CBC, GFR, MORPH #### [address] [address] CBCon 05-25-2024 Erythrocyte distribution width (RBC) [Ratio] 16.2 % High 11.5-15.5 [facility] Comment on above: Performed By: #### D IFF, BMP, CBC, GFR, MORPH #### [address] [address] Hematocrit (Bld) [Volume fraction] 21.1 % Low 40.0-52.0 [facility] Comment on above: Performed By: #### D IFF, BMP, CBC, GFR, MORPH #### [place] [id number] Hgb 7.0 G/dL Low 13.0-17.5 [facility] Comment on above: Performed By: #### D IFF, BMP, CBC, GFR, MORPH #### [place] [address] MCH (RBC) [Entitic mass] 44.7 pg High 27.0-33.0 [facility] Comment on above: Performed By: #### D IFF, BMP, CBC, GFR, MORPH #### [place] [address] MCHC 32.9 G/dL Normal 32.0-36.0 [facility] Comment on above: Performed By: #### D IFF, BMP, CBC, GFR, MORPH #### [place] [address] MCV (RBC) [Entitic vol] 135.8 fL High 81.0-100.0 [facility] Comment on above: Performed By: #### D IFF, BMP, CBC, GFR, MORPH #### [place] [address] Platelet 192 10 3/mcL Normal 150-450 [facility] Comment on above: Performed By: #### D IFF, BMP, CBC, GFR, MORPH #### [place] [address] Platelet mean volume (Bld) [Entitic vol] 7.2 fL Normal 6.4-10.5 [facility] Comment on above: Performed By: #### D IFF, BMP, CBC, GFR, MORPH #### [place] [address] RBC 1.56 10 6/mcL Low 4.50-6.00 [facility] Comment on above: Performed By: #### D IFF, BMP, CBC, GFR, MORPH #### [place] [address] WBC 19.9 10 3/mcL High 4.5-10.8 [facility] Comment on above: Performed By: #### D IFF, BMP, CBC, GFR, MORPH #### [place] [address] HHon 05-25-2024 Hematocrit (Bld) [Volume fraction] 26.8 % Low 40.0-52.0 [facility] Comment on above: Performed By: #### D IFF, GFR, BMP, MORPH, CBC #### [facility] [address] [place] [address] Hgb 8.7 G/dL Low 13.0-17.5 [facility] Comment on above: Performed By: #### D IFF, GFR, BMP, MORPH, CBC #### [facility] [address] [place] [address] LABORATORYOrdered By: SYSTEM SYSTEM on 05-25-2024 Hematocrit (Bld) [Volume fraction] 26.8 % Low 40.0 - 52.0 % AH Workflow SS Hemoglobin (Bld) [Mass/Vol] 8.7 G/dL Low 13.0 - 17.5 G/dL AH Workflow SS Anisocytosis Ql (Bld) 2+ *NA* (05/25/24 6:48 AM) Invalid Interpretation Code AH Workflow SS Basophils (Bld) [#/Vol] 0.0 103/mcL Normal 0.0 - 0.3 10^3/mcL AH Workflow SS Basophils/100 WBC (Bld) 0.0 % Normal 0.0 - 2.5 % AH Workflow SS Calcium [Mass/Vol] 9.1 mg/dL Normal 8.7 - 10. 4 mg/dL ADM SS Chloride [Moles/Vol] 108 mmol/L Normal 98 - 11 0 mEq/L ADM SS CO2 [Moles/Vol] 23 mmol/L Normal 22 - 32 mEq/L ADM SS Creatinine [Mass/Vol] 1.33 mg/dL Normal 0.60 - 1.40 mg/dL ADM SS Comment on above: Interpretive Data: T esting performed on [employer] analyzer using enzymatic creatinine methodology. Dacrocytes LM Ql (Bld) 1+ *NA* (05/25/24 6:48 AM) Invalid Interpretation Code AH Workflow SS Differential Comment See Below 13 *NA* (05/25/24 6:48 AM) Invalid Interpretation Code Workflow SS Comment on above: Result Comment: Diff erential performed on albumin smear Electrolyte Balance 9.0 mEq/L Normal 4.0 - 15 .0 mEq/L AH ADM SS Eosinophils (Bld) [#/Vol] 0.0 103/mcL Normal 0.0 - 0.7 10^3/mcL AH Workflow SS Eosinophils/100 WBC (Bld) 0.0 % Normal 0.0 - 6.0 % AH Workflow SS Erythrocyte distribution width (RBC) [Ratio] 16.2 % High 11.5 - 15.5 % AH Workflow SS Estimated Glomerular Filtration Rate 58 ml/min/1.73sqm Invalid Interpretation Code Chemistry S Comment on above: Interpretive Data: Stages of Chronic Kidney Disease (CKD) Stage Description eGFR(ml/min/1.73 sq.m.) CKD 1 Normal kidney function or >=90 normal kindney function with possible kidney damage (ex. Proteinuria) CKD 2 Kidney damage with mild loss 60-89 of kidney function CKD 3a Mild to moderate loss of kidney 45-59 function CKD 3b Moderate to severe loss of 30-44 of kindey function CKD 4 Severe loss of kidney function 15-29 CKD 5 Kidney failure <15 Note: (go live 2024) the eGFR calculation was updated to the 2020 CKD-EPI creatinine equation without a race factor to calculate the eGFR results. Glucose [Mass/Vol] 131 mg/dL High 82 - 115 mg/dL ADM SS Hematocrit (Bld) [Volume fraction] 21.1 % Low 40.0 - 52.0 % AH Workflow SS Hemoglobin (Bld) [Mass/Vol] 7.0 G/dL Low 13.0 - 17.5 G/dL AH Workflow SS Hypochromia Ql (Bld) 1+ *NA* (05/25/24 6:48 AM) Invalid Interpretation Code Workflow SS Lymphocytes (Bld) [#/Vol] 18.3 103/mcL High 0.9 - 4.3 10^3/mcL AH Workflow SS Lymphocytes/100 WBC (Bld) 92.0 % High 20.0 - 40.0 % AH Workflow SS Macrocytes Ql (Bld) 3+ *NA* (05/25/24 6:48 AM) Invalid Interpretation Code Workflow SS MCH (RBC) [Entitic mass] 44.7 pg High 27.0 - 33.0 pg AH Workflow SS MCHC 32.9 G/dL Normal 32.0 - 36.0 G/dL AH Workflow SS MCV (RBC) [Entitic vol] 135.8 fL High 81.0 - 100.0 fL AH Workflow SS Monocytes (Bld) [#/Vol] 0.0 103/mcL Low 0.1 - 1.4 10^3/mcL AH Workflow SS Monocytes/100 WBC (Bld) 0.0 % Low 2.0 - 13.0 % AH Workflow SS Neutrophils (Bld) [#/Vol] 1.6 103/mcL Low 2.3 - 8.1 10^3/mcL AH Workflow SS Neutrophils/100 WBC (Bld) 8.0 % Low 50.0 - 75.0 % AH Workflow SS Nucleated RBC 0.0 /100 WBC Invalid Interpretation Code Workflow SS Platelet mean volume (Bld) [Entitic vol] 7.2 fL Normal 6.4 - 10.5 fL AH Workflow SS Platelets (Bld) [#/Vol] 192 103/mcL Normal 150 - 450 10^3/mcL AH Workflow SS Platelets LM Ql (Bld) Normal *NA* (05/25/24 6:48 AM) Invalid Interpretation Code Workflow SS Poikilocytosis LM Ql (Bld) 1+ *NA* (05/25/24 6:48 AM) Invalid Interpretation Code Workflow SS Polychromasia LM Ql (Bld) 1+ *NA* (05/25/24 6:48 AM) Invalid Interpretation Code Workflow SS Potassium [Moles/Vol] 4.4 mmol/L Normal 3.5 - 5.0 mEq/L ADM SS RBC (Bld) [#/Vol] 1.56 106/mcL Low 4.50 - 6.0 0 10^6/mcL AH Workflow SS Smudge cells LM Ql (Bld) 1+ *NA* (05/25/24 6:48 AM) Invalid Interpretation Code Workflow SS Sodium [Moles/Vol] 140 mmol/L Normal 136 - 145 mEq/L ADM SS Stomatocytes LM Ql (Bld) 1+ *NA* (05/25/24 6:48 AM) Invalid Interpretation Code AH Workflow SS Urea nitrogen [Mass/Vol] 23.0 mg/dL High 8.0 - 22.0 mg/dL ADM SS Urea nitrogen/Creatinine [Mass ratio] 17.3 ratio Normal 10.0 - 22.0 ratio ADM SS WBC (Bld) [#/Vol] 19.9 103/mcL High 4.5 - 10.8 10^3/mcL AH Workflow SS LABORATORYOrdered By: Brittani Manuelk on 05-25-2024 RBC Product Ready RBC Ready for Pickup (05/25/24 9:12 AM) Normal AH BB Manual SS RBC (Product)on 05-25-2024 RBC Product Ready RBC Ready for Pickup Normal [facility] Comment on above: Performed By: #### D IFF, GFR, BMP, MORPH, CBC #### [place] [address] .GFRon 05-24-2024 Estimated Glomerular Filtration Rate 56 ml/min/1.73sqm Normal [facility] Comment on above: Result Comment: Stages of Chronic Kidney Disease (CKD) Stage Description eGFR(ml/min/1.73 sq.m.) CKD 1 Normal kidney function or >=90 normal kindney function with possible kidney damage (ex. Proteinuria) CKD 2 Kidney damage with mild loss 60-89 of kidney function CKD 3a Mild to moderate loss of kidney 45-59 function CKD 3b Moderate to severe loss of 30-44 of kindey function CKD 4 Severe loss of kidney function 15-29 CKD 5 Kidney failure <15 Note: (go live 2024) the eGFR calculation was updated to the 2020 CKD-EPI creatinine equation without a race factor to calculate the eGFR results. Performed By: #### D IFF, BMP, CBC, GFR, MORPH #### [place] [address] .Manual Diffon 05-24-2024 Basophil %, Manual 0.0 % Normal 0.0-2.5 [facility] Comment on above: Performed By: #### D IFF, GFR, BMP, MORPH, CBC #### [place] [address] Basophil, Abs Manual 0.0 10 3/mcL Normal 0.0-0.3 [facility] Comment on above: Performed By: #### D IFF, GFR, BMP, MORPH, CBC #### [place] [address] Eosinophil %, Manual 0.0 % Normal 0.0-6.0 [facility] Comment on above: Performed By: #### D IFF, GFR, BMP, MORPH, CBC #### [address] [address] Eosinophil, Abs Manual 0.0 10 3/mcL Normal 0.0-0.7 [facility] Comment on above: Performed By: #### D IFF, GFR, BMP, MORPH, CBC #### [address] [address] Lymphocyte %, Manual 90.0 % High 20.0-40.0 [facility] Comment on above: Performed By: #### D IFF, GFR, BMP, MORPH, CBC #### [address] [address] Lymphocyte, Abs Manual 21.7 10 3/mcL High 0.9-4.3 [facility] Comment on above: Performed By: #### D IFF, GFR, BMP, MORPH, CBC #### [address] [address] Monocyte %, Manual 2.0 % Normal 2.0-13.0 [facility] Comment on above: Performed By: #### D IFF, GFR, BMP, MORPH, CBC #### [address] [address] Monocyte, Abs Manual 0.5 10 3/mcL Normal 0.1-1.4 [facility] Comment on above: Performed By: #### D IFF, GFR, BMP, MORPH, CBC #### [address] [address] Neutrophil %, Manual 8.0 % Low 50.0-75.0 [facility] Comment on above: Performed By: #### D IFF, GFR, BMP, MORPH, CBC #### [address] [address] Neutrophil, Abs Manual 1.9 10 3/mcL Low 2.3-8.1 [facility] Comment on above: Performed By: #### D IFF, GFR, BMP, MORPH, CBC #### [address] [address] Nucleated RBC 0.0 /100 WBC Normal [facility] Comment on above: Performed By: #### D IFF, GFR, BMP, MORPH, CBC #### [address] [address] .Morphon 05-24-2024 Anisocytosis Ql (Bld) 1+ Normal [facility] Comment on above: Performed By: #### D IFF, GFR, BMP, MORPH, CBC #### [place] [address] Macrocytosis 3+ Normal [facility] Comment on above: Performed By: #### D IFF, GFR, BMP, MORPH, CBC #### [place] [address] Platelet Estimate Normal [facility] Comment on above: Performed By: #### D IFF, GFR, BMP, MORPH, CBC #### [place] [address] Polychrom 1+ Normal [facility] Comment on above: Performed By: #### D IFF, GFR, BMP, MORPH, CBC #### [place] [address] Smudge Cells 2+ Normal [facility] Comment on above: Performed By: #### D IFF, GFR, BMP, MORPH, CBC #### [place] [address] Differential Comment See Below [facility] Comment on above: Result Comment: Diff erential performed on albumin smear Performed By: #### D IFF, GFR, BMP, MORPH, CBC #### [place] [address] BMPon 05-24-2024 BUN/Creatinine Ratio 17.0 ratio Normal 10.0-22.0 [facility] Comment on above: Performed By: #### D IFF, BMP, CBC, GFR, MORPH #### [place] [address] Calcium [Mass/Vol] 8.9 mg/dL Normal 8.7-10.4 [facility] Comment on above: Performed By: #### D IFF, BMP, CBC, GFR, MORPH #### [place] [address] Chloride [Moles/Vol] 108 mmol/L Normal 98-110 [facility] Comment on above: Performed By: #### D IFF, BMP, CBC, GFR, MORPH #### [address] [address] CO2 [Moles/Vol] 20 mmol/L Low 22-32 [facility] Comment on above: Performed By: #### D IFF, BMP, CBC, GFR, MORPH #### [address] [address] Creatinine [Mass/Vol] 1.35 mg/dL Normal 0.60-1.40 [facility] Comment on above: Result Comment: Test ing performed on [employer] analyzer using enzymatic creatinine methodology. Performed By: #### D IFF, BMP, CBC, GFR, MORPH #### [address] [address] Electrolyte Balance 11.0 mEq/L Normal 4.0-15.0 [facility] [facility] Comment on above: Performed By: #### D IFF, BMP, CBC, GFR, MORPH #### [address] [address] Glucose [Mass/Vol] 111 mg/dL Normal 82-115 [facility] Comment on above: Performed By: #### D IFF, BMP, CBC, GFR, MORPH #### [address] [address] Potassium [Moles/Vol] 4.4 mmol/L Normal 3.5-5.0 [facility] Comment on above: Performed By: #### D IFF, BMP, CBC, GFR, MORPH #### [address] [address] Sodium [Moles/Vol] 139 mmol/L Normal 136-145 [facility] Comment on above: Performed By: #### D IFF, BMP, CBC, GFR, MORPH #### [address] [address] Urea nitrogen [Mass/Vol] 23.0 mg/dL High 8.0-22.0 [facility] Comment on above: Performed By: #### D IFF, BMP, CBC, GFR, MORPH #### [place] [address] CBCon 05-24-2024 Erythrocyte distribution width (RBC) [Ratio] 16.6 % High 11.5-15.5 [facility] Comment on above: Performed By: #### D IFF, GFR, BMP, MORPH, CBC #### [place] [address] Hematocrit (Bld) [Volume fraction] 25.9 % Low 40.0-52.0 [facility] Comment on above: Performed By: #### D IFF, GFR, BMP, MORPH, CBC #### [place] [address] Hgb 8.8 G/dL Low 13.0-17.5 [facility] Comment on above: Performed By: #### D IFF, GFR, BMP, MORPH, CBC #### [place] [address] MCH (RBC) [Entitic mass] 45.6 pg High 27.0-33.0 [facility] Comment on above: Performed By: #### D IFF, GFR, BMP, MORPH, CBC #### [place] [address] MCHC 34.0 G/dL Normal 32.0-36.0 [facility] Comment on above: Performed By: #### D IFF, GFR, BMP, MORPH, CBC #### [place] [address] MCV (RBC) [Entitic vol] 134.2 fL High 81.0-100.0 [facility] Comment on above: Performed By: #### D IFF, GFR, BMP, MORPH, CBC #### [place] [address] Platelet 202 10 3/mcL Normal 150-450 [facility] Comment on above: Performed By: #### D IFF, GFR, BMP, MORPH, CBC #### [place] [address] Platelet mean volume (Bld) [Entitic vol] 7.3 fL Normal 6.4-10.5 [facility] Comment on above: Performed By: #### D IFF, GFR, BMP, MORPH, CBC #### [address] [address] RBC 1.93 10 6/mcL Low 4.50-6.00 [facility] Comment on above: Performed By: #### D IFF, GFR, BMP, MORPH, CBC #### [place] [address] WBC 24.1 10 3/mcL High 4.5-10.8 [facility] Comment on above: Performed By: #### D IFF, GFR, BMP, MORPH, CBC #### [place] [address] CMPon 05-24-2024 Albumin Level 3.2 G/dL Normal 3.2-4.8 [facility] Comment on above: Performed By: #### D IFF, GFR, BMP, MORPH, CBC #### [place] [address] Albumin/Globulin [Mass ratio] 1.4 {ratio} Normal 0.9-1.6 [facility] Comment on above: Performed By: #### D IFF, GFR, BMP, MORPH, CBC #### [place] [address] ALP [Catalytic activity/Vol] 62 U/L Normal 38-126 [facility] Comment on above: Performed By: #### D IFF, GFR, BMP, MORPH, CBC #### [place] [address] ALT [Catalytic activity/Vol] 13 U/L Normal 12-55 [facility] Comment on above: Performed By: #### D IFF, GFR, BMP, MORPH, CBC #### [place] [address] AST [Catalytic activity/Vol] 18 U/L Normal 8-34 [facility] Comment on above: Performed By: #### D IFF, GFR, BMP, MORPH, CBC #### [place] [address] Bili Total 0.90 mg/dL Normal 0.20-1.20 [facility] Comment on above: Result Comment: Use of this assay is not recommended for patients undergoing treatment with eltrombopag due to the potential for falsely elevated results. Performed By: #### D IFF, GFR, BMP, MORPH, CBC #### [address] [address] BUN/Creatinine Ratio 17.4 ratio Normal 10.0-22.0 [facility] Comment on above: Performed By: #### D IFF, GFR, BMP, MORPH, CBC #### [address] [address] Calcium [Mass/Vol] 9.1 mg/dL Normal 8.7-10.4 [facility] Comment on above: Performed By: #### D IFF, GFR, BMP, MORPH, CBC #### [address] [address] Chloride [Moles/Vol] 107 mmol/L Normal 98-110 [facility] Comment on above: Performed By: #### D IFF, GFR, BMP, MORPH, CBC #### [address] [address] CO2 [Moles/Vol] 21 mmol/L Low 22-32 [facility] Comment on above: Performed By: #### D IFF, GFR, BMP, MORPH, CBC #### [address] [address] Creatinine [Mass/Vol] 1.32 mg/dL Normal 0.60-1.40 [facility] Comment on above: Result Comment: Test ing performed on [employer] analyzer using enzymatic creatinine methodology. Performed By: #### D IFF, GFR, BMP, MORPH, CBC #### [address] [address] Electrolyte Balance 9.0 mEq/L Normal 4.0-15.0 [facility] Comment on above: Performed By: #### D IFF, GFR, BMP, MORPH, CBC #### [address] [address] Globulin 2.3 G/dL Normal 1.5-3.8 [facility] Comment on above: Performed By: #### D IFF, GFR, BMP, MORPH, CBC #### [address] [address] Glucose [Mass/Vol] 111 mg/dL Normal 82-115 [facility] Comment on above: Performed By: #### D IFF, GFR, BMP, MORPH, CBC #### [address] [address] Potassium [Moles/Vol] 4.4 mmol/L Normal 3.5-5.0 [facility] Comment on above: Performed By: #### D IFF, GFR, BMP, MORPH, CBC #### [address] [address] Sodium [Moles/Vol] 137 mmol/L Normal 136-145 [facility] Comment on above: Performed By: #### D IFF, GFR, BMP, MORPH, CBC #### [address] [address] Total Protein 5.5 G/dL Low 5.7-8.2 [facility] Comment on above: Performed By: #### D IFF, GFR, BMP, MORPH, CBC #### [address] [address] Urea nitrogen [Mass/Vol] 23.0 mg/dL High 8.0-22.0 [facility] Comment on above: Performed By: #### D IFF, GFR, BMP, MORPH, CBC #### [address] [address] [address] PELVIS W/O CONTRASTon CT PELVIS W/O CONTRAST ADDENDUM ADDENDUM: Report should say intertrochanteric rather than intra-articular. Interpreted by: Olivier Chicas DO Preliminary Report By: Olivier Chicas DO Electronically signed By Olivier Chicas DO Dictated Date: 05/24/2024 2:26:28 PM Prelim Date: 05/24/2024 2:26:37 PM Sign Date: 05/24/2024 2:26:37 PM Ordering Provider: VILMA MARTINEZ ORIGINAL EXAMINATION: CT OF THE PELVIS WITHOUT CONTRAST05/23/2024 11:24 am TECHNIQUE: CT of the pelvis was performed without the administration of intravenous contrast. Multiplanar reformatted images are provided for review. Adjustment of mA and/or kV according to patient size was utilized. Automated exposure control, iterative reconstruction, and/or weight based adjustment of the mA/kV was utilized to reduce the radiation dose to as low as reasonably achievable. COMPARISON: Same day radiograph HISTORY: ORDERING SYSTEM PROVIDED HISTORY: Reason for Exam: pt fell. complains about right hip pain FINDINGS: Redemonstrated comminuted right intra-articular hip fracture with angulation and multiple fracture fragments. There is surrounding right hip hematoma. No hip dislocation. No sacral or iliac fracture. There is left hip fixation hardware in place. There are advanced calcifications, particularly at the left SFA and CLIENT PROJECT COORDINATOR. Large amount of rectal stool with distension and presacral stranding is evident. This measures 9 cm in diameter. There are postsurgical changes of the sigmoid colon. There is diverticulosis. There is an increased number of mesenteric and perirectal lymph nodes, although none appear pathologic in size. There is aortic calcification. The visualized portion of the left kidney is unremarkable. No small bowel dilatation. Urinary bladder and prostate are within normal limits. There is small fat containing left inguinal hernia. IMPRESSION: 1. Comminuted right intra-articular hip fracture with surrounding hematoma. 2. Large amount of rectal stool with distension and presacral stranding. Correlate for fecal impaction. 3. Diverticulosis. 4. Increased number of mesenteric and perirectal lymph nodes, although none appear pathologic in size. These may be reactive in nature. Is there a history of malignancy or lymphoproliferative disorder? 5. Advanced vascular calcifications, particularly at the left SFA and CLIENT PROJECT COORDINATOR. Correlate with any history of claudication. 6. Small fat-containing left inguinal hernia. Interpreted by: Olivier Chicas DO Preliminary Report By: Olivier Chicas DO Electronically signed By Olivier Chicas DO Dictated Date: 05/23/2024 11:25:33 AM Prelim Date: 05/23/2024 11:30:00 AM Sign Date: 05/23/2024 11:30:00 AM Ordering Provider: VILMA MARTINEZ [facility] MAIN LABORATORYOrdered By: SYSTEM SYSTEM on 05-24-2024 Albumin BCP dye [Mass/Vol] 3.2 G/dL Normal 3.2 - 4.8 G/dL AH ADM SS Albumin/Globulin [Mass ratio] 1.4 {ratio} Normal 0.9 - 1.6 ratio AH ADM SS ALP [Catalytic activity/Vol] 62 U/L Normal 38 - 126 U/L AH ADM SS ALT No additional P-5'-P [Catalytic activity/Vol] 13 U/L Normal 12 - 55 U/L AH ADM SS Anisocytosis Ql (Bld) 1+ *NA* (05/24/24 6:59 AM) Invalid Interpretation Code AH Workflow SS AST [Catalytic activity/Vol] 18 U/L Normal 8 - 34 U/L AH ADM SS Basophils (Bld) [#/Vol] 0.0 103/mcL Normal 0.0 - 0.3 10^3/mcL AH Workflow SS Basophils/100 WBC (Bld) 0.0 % Normal 0.0 - 2.5 % Workflow SS Bilirubin [Mass/Vol] 0.90 mg/dL Normal 0.20 - 1.20 mg/dL AH ADM SS Comment on above: Interpretive Data: U se of this assay is not recommended for patients undergoing treatment with eltrombopag due to the potential for falsely elevated results. Calcium [Mass/Vol] 9.1 mg/dL Normal 8.7 - 10. 4 mg/dL AH ADM SS Calcium [Mass/Vol] 8.9 mg/dL Normal 8.7 - 10. 4 mg/dL AH ADM SS Chloride [Moles/Vol] 107 mmol/L Normal 98 - 11 0 mEq/L AH ADM SS Chloride [Moles/Vol] 108 mmol/L Normal 98 - 11 0 mEq/L AH ADM SS CO2 [Moles/Vol] 21 mmol/L Low 22 - 32 mEq/L AH ADM SS CO2 [Moles/Vol] 20 mmol/L Low 22 - 32 mEq/L AH ADM SS Creatinine [Mass/Vol] 1.32 mg/dL Normal 0.60 - 1.40 mg/dL AH ADM SS Comment on above: Interpretive Data: T esting performed on [employer] analyzer using enzymatic creatinine methodology. Creatinine [Mass/Vol] 1.35 mg/dL Normal 0.60 - 1.40 mg/dL AH ADM SS Comment on above: Interpretive Data: T esting performed on [employer] analyzer using enzymatic creatinine methodology. Differential Comment See Below 14 *NA* (05/24/24 6:59 AM) Invalid Interpretation Code AH Workflow SS Comment on above: Result Comment: Diff erential performed on albumin smear Electrolyte Balance 9.0 mEq/L Normal 4.0 - 15 .0 mEq/L ADM SS Electrolyte Balance 11.0 mEq/L Normal 4.0 - 15 .0 mEq/L ADM SS Eosinophils (Bld) [#/Vol] 0.0 103/mcL Normal 0.0 - 0.7 10^3/mcL Workflow SS Eosinophils/100 WBC (Bld) 0.0 % Normal 0.0 - 6.0 % Workflow SS Erythrocyte distribution width (RBC) [Ratio] 16.6 % High 11.5 - 15.5 % Workflow SS Estimated Glomerular Filtration Rate 56 ml/min/1.73sqm Invalid Interpretation Code [facility] SS Comment on above: Interpretive Data: Stages of Chronic Kidney Disease (CKD) Stage Description eGFR(ml/min/1.73 sq.m.) CKD 1 Normal kidney function or >=90 normal kindney function with possible kidney damage (ex. Proteinuria) CKD 2 Kidney damage with mild loss 60-89 of kidney function CKD 3a Mild to moderate loss of kidney 45-59 function CKD 3b Moderate to severe loss of 30-44 of kindey function CKD 4 Severe loss of kidney function 15-29 CKD 5 Kidney failure <15 Note: (go live 2024) the eGFR calculation was updated to the 2020 CKD-EPI creatinine equation without a race factor to calculate the eGFR results. Globulin 2.3 G/dL Normal 1.5 - 3.8 G/dL [facility] SS Lymphocytes (Bld) [#/Vol] 21.7 103/mcL High 0.9 - 4.3 10^3/mcL Workflow SS Lymphocytes/100 WBC (Bld) 90.0 % High 20.0 - 40.0 % Workflow SS Macrocytes Ql (Bld) 3+ *NA* (05/24/24 6:59 AM) Invalid Interpretation Code Workflow SS MCH (RBC) [Entitic mass] 45.6 pg High 27.0 - 33.0 pg Workflow SS MCHC 34.0 G/dL Normal 32.0 - 36.0 G/dL Workflow SS MCV (RBC) [Entitic vol] 134.2 fL High 81.0 - 100.0 fL Workflow SS Monocytes (Bld) [#/Vol] 0.5 103/mcL Normal 0.1 - 1.4 10^3/mcL AH Workflow SS Monocytes/100 WBC (Bld) 2.0 % Normal 2.0 - 13.0 % AH Workflow SS Neutrophils (Bld) [#/Vol] 1.9 103/mcL Low 2.3 - 8.1 10^3/mcL AH Workflow SS Neutrophils/100 WBC (Bld) 8.0 % Low 50.0 - 75.0 % AH Workflow SS Nucleated RBC 0.0 /100 WBC Invalid Interpretation Code Workflow SS Platelet mean volume (Bld) [Entitic vol] 7.3 fL Normal 6.4 - 10.5 fL AH Workflow SS Platelets (Bld) [#/Vol] 202 103/mcL Normal 150 - 450 10^3/mcL Workflow SS Platelets LM Ql (Bld) Normal *NA* (05/24/24 6:59 AM) Invalid Interpretation Code Workflow SS Polychromasia LM Ql (Bld) 1+ *NA* (05/24/24 6:59 AM) Invalid Interpretation Code Workflow SS Protein [Mass/Vol] 5.5 G/dL Low 5.7 - 8.2 G/dL ADM SS RBC (Bld) [#/Vol] 1.93 106/mcL Low 4.50 - 6.0 0 10^6/mcL AH Workflow SS Smudge cells LM Ql (Bld) 2+ *NA* (05/24/24 6:59 AM) Invalid Interpretation Code Workflow SS Sodium [Moles/Vol] 137 mmol/L Normal 136 - 145 mEq/L ADM SS Sodium [Moles/Vol] 139 mmol/L Normal 136 - 145 mEq/L ADM SS Urea nitrogen/Creatinine [Mass ratio] 17.4 ratio Normal 10.0 - 22.0 ratio ADM SS Urea nitrogen/Creatinine [Mass ratio] 17.0 ratio Normal 10.0 - 22.0 ratio AH ADM SS WBC (Bld) [#/Vol] 24.1 103/mcL High 4.5 - 10.8 10^3/mcL AH Workflow SS Laboratory - Chemistry and C hemistry - challengeOrdered By: SYSTEM SYSTEM on 05-24-2024 Glucose [Mass/Vol] 111 mg/dL Normal 82 - 115 mg/dL ADM SS Potassium [Moles/Vol] 4.4 mmol/L Normal 3.5 - 5.0 mEq/L AH ADM SS Urea nitrogen [Mass/Vol] 23.0 mg/dL High 8.0 - 22.0 mg/dL AH ADM SS TROPHSon 05-24-2024 High Sensitivity Troponin I 9 ng/L Normal 0-54 [facility] MAIN Comment on above: Result Comment: High Sensitive Troponin I Reference Ranges: Female: 0-34 ng/L Male: 0-54 ng/L Testing performed on [employer] IM analyzer using direct chemiluminescent technology. Performed By: #### D IFF, GFR, BMP, MORPH, CBC #### [facility] [address] [place] [address] XR FLUORO 1-2 HRS TECH TIMEo n 05-24-2024 XR FLUORO 1-2 HRS TECH TIME ORIGINAL EXAMINATION: FLUORO MD - > 1 HR05/24/2024 2:11 pm COMPARISON: None. HISTORY: ORDERING SYSTEM PROVIDED HISTORY: Reason for Exam: rt intertrochanteric hip fx FLUOROSCOPY DOSE AND TYPE: Radiation Exposure Index: Kerma mGy, 16.935 FINDINGS: Intraoperative fluoroscopy utilized for right hip fracture. Images demonstrate interval placement of intramedullary yeimy and fixation screw with improved anatomic alignment. IMPRESSION: Please see procedure note for further detail. Interpreted by: Olivier Chicas DO Preliminary Report By: Olivier Chicas DO Electronically signed By Olivier Chicas DO Dictated Date: 05/24/2024 2:24:07 PM Prelim Date: 05/24/2024 2:25:34 PM Sign Date: 05/24/2024 2:25:34 PM Ordering Provider: MATT Iqbal [facility] XR HIP RIGHT W/PELVIS 4 VIEW Son 05-24-2024 XR HIP RIGHT W/PELVIS 4 VIEWS ADDENDUM ADDENDUM: Report should say intertrochanteric rather than intra-articular. Interpreted by: Olivier Chicas DO Preliminary Report By: Olivier Chicas DO Electronically signed By Olivier Chicas DO Dictated Date: 05/24/2024 2:25:56 PM Prelim Date: 05/24/2024 2:26:18 PM Sign Date: 05/24/2024 2:26:18 PM Ordering Provider: VILMA MARTINEZ ORIGINAL EXAMINATION: 2 XRAY VIEWS OF THE RIGHT HIP, 2 VIEWS OF THE PELVIS2/12/2024 11:18 am COMPARISON: None HISTORY: ORDERING SYSTEM PROVIDED HISTORY: Reason for Exam: pain FINDINGS: Left hip fixation hardware is in place. The pelvic ring is intact. There is a comminuted and angulated right intra-articular hip fracture. There are vascular calcifications. There is large rectal stool volume. IMPRESSION: 1. Comminuted and angulated right intra-articular hip fracture. 2. Large rectal stool volume. Interpreted by: Oliveir Chicas DO Preliminary Report By: Olivier Chicas DO Electronically signed By Olivier Chicas DO Dictated Date: 05/23/2024 11:24:16 AM Prelim Date: 05/23/2024 11:25:20 AM Sign Date: 05/23/2024 11:25:20 AM Ordering Provider: VILMA MARTINEZ [facility] MAIN .GFRon 05-23-2024 Estimated Glomerular Filtration Rate 49 ml/min/1.73sqm [facility] MAIN Comment on above: Result Comment: Stages of Chronic Kidney Disease (CKD) Stage Description eGFR(ml/min/1.73 sq.m.) CKD 1 Normal kidney function or >=90 normal kindney function with possible kidney damage (ex. Proteinuria) CKD 2 Kidney damage with mild loss 60-89 of kidney function CKD 3a Mild to moderate loss of kidney 45-59 function CKD 3b Moderate to severe loss of 30-44 of kindey function CKD 4 Severe loss of kidney function 15-29 CKD 5 Kidney failure <15 Note: (go live 2024) the eGFR calculation was updated to the 2020 CKD-EPI creatinine equation without a race factor to calculate the eGFR results. Performed By: #### D IFF, BMP, CBC, GFR, MORPH #### [place] [address] Estimated Glomerular Filtration Rate 48 ml/min/1.73sqm [facility] MAIN Comment on above: Result Comment: Stages of Chronic Kidney Disease (CKD) Stage Description eGFR(ml/min/1.73 sq.m.) CKD 1 Normal kidney function or >=90 normal kindney function with possible kidney damage (ex. Proteinuria) CKD 2 Kidney damage with mild loss 60-89 of kidney function CKD 3a Mild to moderate loss of kidney 45-59 function CKD 3b Moderate to severe loss of 30-44 of kindey function CKD 4 Severe loss of kidney function 15-29 CKD 5 Kidney failure <15 Note: (go live 2024) the eGFR calculation was updated to the 2020 CKD-EPI creatinine equation without a race factor to calculate the eGFR results. Performed By: #### D IFF, GFR, BMP, MORPH, CBC #### [place] [address] .MDWon 05-23-2024 Monocyte Distribution Width See Comment Normal 0.00-20.00 [facility] Comment on above: Result Comment: The MDW result could not be reported due to a sample abnormality that prevents the MDW from being calculated. Performed By: #### D IFF, GFR, BMP, MORPH, CBC #### [place] [address] .Manual Diffon 05-23-2024 Atypical Lymphs 20.0 % High 0.0-5.0 [facility] Comment on above: Performed By: #### D IFF, BMP, CBC, GFR, MORPH #### [place] [address] Basophil %, Manual 0.0 % Normal 0.0-2.5 [facility] Comment on above: Performed By: #### D IFF, BMP, CBC, GFR, MORPH #### [place] [address] Basophil, Abs Manual 0.0 10 3/mcL Normal 0.0-0.3 [facility] Comment on above: Performed By: #### D IFF, BMP, CBC, GFR, MORPH #### [place] [address] Eosinophil %, Manual 0.0 % Normal 0.0-6.0 [facility] Comment on above: Performed By: #### D IFF, BMP, CBC, GFR, MORPH #### [place] [address] Eosinophil, Abs Manual 0.0 10 3/mcL Normal 0.0-0.7 [facility] Comment on above: Performed By: #### D IFF, BMP, CBC, GFR, MORPH #### [place] [address] Lymphocyte %, Manual 73.0 % High 20.0-40.0 [facility] Comment on above: Performed By: #### D IFF, BMP, CBC, GFR, MORPH #### [address] [address] Lymphocyte, Abs Manual 21.7 10 3/mcL High 0.9-4.3 [facility] Comment on above: Performed By: #### D IFF, BMP, CBC, GFR, MORPH #### [address] [address] Monocyte %, Manual 1.0 % Low 2.0-13.0 [facility] Comment on above: Performed By: #### D IFF, BMP, CBC, GFR, MORPH #### [address] [address] Monocyte, Abs Manual 0.3 10 3/mcL Normal 0.1-1.4 [facility] Comment on above: Performed By: #### D IFF, BMP, CBC, GFR, MORPH #### [address] [address] Neutrophil %, Manual 6.0 % Low 50.0-75.0 [facility] Comment on above: Performed By: #### D IFF, BMP, CBC, GFR, MORPH #### [address] [address] Neutrophil, Abs Manual 1.8 10 3/mcL Low 2.3-8.1 [facility] Comment on above: Performed By: #### D IFF, BMP, CBC, GFR, MORPH #### [address] [address] Nucleated RBC 0.0 /100 WBC Normal [facility] Comment on above: Performed By: #### D IFF, BMP, CBC, GFR, MORPH #### [address] [address] Basophil %, Manual 0.0 % Normal 0.0-2.5 [facility] Comment on above: Performed By: #### D IFF, GFR, BMP, MORPH, CBC #### [address] [address] Basophil, Abs Manual 0.0 10 3/mcL Normal 0.0-0.3 [facility] Comment on above: Performed By: #### D IFF, GFR, BMP, MORPH, CBC #### [address] [address] Eosinophil %, Manual 0.0 % Normal 0.0-6.0 [facility] Comment on above: Performed By: #### D IFF, GFR, BMP, MORPH, CBC #### [address] [address] Eosinophil, Abs Manual 0.0 10 3/mcL Normal 0.0-0.7 [facility] Comment on above: Performed By: #### D IFF, GFR, BMP, MORPH, CBC #### [address] [address] Lymphocyte %, Manual 90.0 % High 20.0-40.0 [facility] Comment on above: Performed By: #### D IFF, GFR, BMP, MORPH, CBC #### [address] [address] Lymphocyte, Abs Manual 31.7 10 3/mcL High 0.9-4.3 [facility] Comment on above: Performed By: #### D IFF, GFR, BMP, MORPH, CBC #### [address] [address] Monocyte %, Manual 0.0 % Low 2.0-13.0 [facility] Comment on above: Performed By: #### D IFF, GFR, BMP, MORPH, CBC #### [address] [address] Monocyte, Abs Manual 0.0 10 3/mcL Low 0.1-1.4 [facility] Comment on above: Performed By: #### D IFF, GFR, BMP, MORPH, CBC #### [address] [address] Neutrophil %, Manual 10.0 % Low 50.0-75.0 [facility] Comment on above: Performed By: #### D IFF, GFR, BMP, MORPH, CBC #### [place] [address] Neutrophil, Abs Manual 3.5 10 3/mcL Normal 2.3-8.1 [facility] Comment on above: Performed By: #### D IFF, GFR, BMP, MORPH, CBC #### [place] [address] Nucleated RBC 0.0 /100 WBC Normal [facility] Comment on above: Performed By: #### D IFF, GFR, BMP, MORPH, CBC #### [place] [address] .Manual DiffOrdered By: SYST EM SYSTEM on 05-23-2024 Aytpical Lymph, Abs Manual 5.9 103/mcL High 0.0-0.5 AH Workflow SS Comment on above: Performed By: #### D IFF, BMP, CBC, GFR, MORPH #### [place] [address] .Morphon 05-23-2024 Anisocytosis Ql (Bld) 1+ Normal [facility] Comment on above: Performed By: #### D IFF, BMP, CBC, GFR, MORPH #### [place] [address] Macrocytosis 3+ Normal [facility] Comment on above: Performed By: #### D IFF, BMP, CBC, GFR, MORPH #### [place] [address] Ovalocytes 1+ Normal [facility] Comment on above: Performed By: #### D IFF, BMP, CBC, GFR, MORPH #### [place] [address] Platelet Estimate Normal [facility]IN Comment on above: Performed By: #### D IFF, BMP, CBC, GFR, MORPH #### [place] [address] Poik 1+ [facility]IN Comment on above: Performed By: #### D IFF, BMP, CBC, GFR, MORPH #### [place] [address] Polychrom 1+ Normal [facility] Comment on above: Performed By: #### D IFF, BMP, CBC, GFR, MORPH #### [address] [address] Tear Cell 1+ Normal [facility] Comment on above: Performed By: #### D IFF, BMP, CBC, GFR, MORPH #### [address] [address] Anisocytosis Ql (Bld) 1+ Normal [facility] Comment on above: Performed By: #### D IFF, GFR, BMP, MORPH, CBC #### [address] [address] Differential Comment See Below [facility] MAIN Comment on above: Result Comment: Diff erential performed on albumin smear Performed By: #### D IFF, GFR, BMP, MORPH, CBC #### [place] [address] Macrocytosis 3+ Normal [facility] Comment on above: Performed By: #### D IFF, GFR, BMP, MORPH, CBC #### [place] [address] Ovalocytes 1+ Normal [facility] Comment on above: Performed By: #### D IFF, GFR, BMP, MORPH, CBC #### [place] [address] Platelet Estimate Normal [facility]IN Comment on above: Performed By: #### D IFF, GFR, BMP, MORPH, CBC #### [place] [address] Poik 2+ [facility]IN Comment on above: Performed By: #### D IFF, GFR, BMP, MORPH, CBC #### [place] [address] Stomatocytes 2+ [facility] MAIN Comment on above: Performed By: #### D IFF, GFR, BMP, MORPH, CBC #### [place] [address] ABO/Rh (Gel)on 05-23-2024 ABO/Rh Interp Positive Invalid Interpretation Code [facility] Comment on above: Performed By: #### D IFF, GFR, BMP, MORPH, CBC #### [address] [address] ABS (Gel)on 05-23-2024 ABSC Interp (Gel) Negative Normal [facility] Comment on above: Performed By: #### D IFF, GFR, BMP, MORPH, CBC #### [address] [address] Jose 05-23-2024 Ethanol Level <10.0 Normal [facility] Comment on above: Performed By: #### D IFF, GFR, BMP, MORPH, CBC #### [address] [address] BMPon 05-23-2024 BUN/Creatinine Ratio 21.9 ratio Normal 10.0-22.0 [facility] Comment on above: Performed By: #### D IFF, BMP, CBC, GFR, MORPH #### [address] [address] Calcium [Mass/Vol] 9.8 mg/dL Normal 8.7-10.4 [facility] Comment on above: Performed By: #### D IFF, BMP, CBC, GFR, MORPH #### [address] [address] Chloride [Moles/Vol] 107 mmol/L Normal 98-110 [facility] Comment on above: Performed By: #### D IFF, BMP, CBC, GFR, MORPH #### [address] [address] CO2 [Moles/Vol] 21 mmol/L Low 22-32 [facility] Comment on above: Performed By: #### D IFF, BMP, CBC, GFR, MORPH #### [address] [address] Creatinine [Mass/Vol] 1.51 mg/dL High 0.60-1.40 [facility] Comment on above: Result Comment: Test ing performed on [employer] analyzer using enzymatic creatinine methodology. Performed By: #### D IFF, BMP, CBC, GFR, MORPH #### [address] [address] Electrolyte Balance 10.0 mEq/L Normal 4.0-15.0 [facility] Comment on above: Performed By: #### D IFF, BMP, CBC, GFR, MORPH #### [address] [address] Glucose [Mass/Vol] 99 mg/dL Normal 82-115 [facility] Comment on above: Performed By: #### D IFF, BMP, CBC, GFR, MORPH #### [address] [address] Potassium [Moles/Vol] 4.3 mmol/L Normal 3.5-5.0 [facility] Comment on above: Performed By: #### D IFF, BMP, CBC, GFR, MORPH #### [address] [address] Sodium [Moles/Vol] 138 mmol/L Normal 136-145 [facility] Comment on above: Performed By: #### D IFF, BMP, CBC, GFR, MORPH #### [address] [address] Urea nitrogen [Mass/Vol] 33.0 mg/dL High 8.0-22.0 [facility] Comment on above: Performed By: #### D IFF, BMP, CBC, GFR, MORPH #### [address] [address] BUN/Creatinine Ratio 22.6 ratio High 10.0-22.0 [facility] Comment on above: Performed By: #### D IFF, GFR, BMP, MORPH, CBC #### [address] [address] Calcium [Mass/Vol] 9.6 mg/dL Normal 8.7-10.4 [facility] Comment on above: Performed By: #### D IFF, GFR, BMP, MORPH, CBC #### [address] [address] Chloride [Moles/Vol] 105 mmol/L Normal 98-110 [facility] Comment on above: Performed By: #### D IFF, GFR, BMP, MORPH, CBC #### [address] [address] CO2 [Moles/Vol] 22 mmol/L Normal 22-32 [facility] Comment on above: Performed By: #### D IFF, GFR, BMP, MORPH, CBC #### [address] [address] Creatinine [Mass/Vol] 1.55 mg/dL High 0.60-1.40 [facility] Comment on above: Result Comment: Test ing performed on [employer] analyzer using enzymatic creatinine methodology. Performed By: #### D IFF, GFR, BMP, MORPH, CBC #### [address] [address] Electrolyte Balance 12.0 mEq/L Normal 4.0-15.0 [facility] Comment on above: Performed By: #### D IFF, GFR, BMP, MORPH, CBC #### [address] [address] Glucose [Mass/Vol] 96 mg/dL Normal 82-115 [facility] Comment on above: Performed By: #### D IFF, GFR, BMP, MORPH, CBC #### [address] [address] Potassium [Moles/Vol] 4.4 mmol/L Normal 3.5-5.0 [facility] Comment on above: Performed By: #### D IFF, GFR, BMP, MORPH, CBC #### [address] [address] Sodium [Moles/Vol] 139 mmol/L Normal 136-145 [facility] Comment on above: Performed By: #### D IFF, GFR, BMP, MORPH, CBC #### [address] [address] Urea nitrogen [Mass/Vol] 35.0 mg/dL High 8.0-22.0 [facility] Comment on above: Performed By: #### D IFF, GFR, BMP, MORPH, CBC #### [address] [address] CBCon 05-23-2024 Erythrocyte distribution width (RBC) [Ratio] 16.8 % High 11.5-15.5 [facility] Comment on above: Performed By: #### D IFF, BMP, CBC, GFR, MORPH #### [place] [address] Hematocrit (Bld) [Volume fraction] 28.3 % Low 40.0-52.0 [facility] Comment on above: Performed By: #### D IFF, BMP, CBC, GFR, MORPH #### [place] [address] Hgb 9.3 G/dL Low 13.0-17.5 [facility] Comment on above: Performed By: #### D IFF, BMP, CBC, GFR, MORPH #### [place] [address] MCH (RBC) [Entitic mass] 44.2 pg High 27.0-33.0 [facility] Comment on above: Performed By: #### D IFF, BMP, CBC, GFR, MORPH #### [place] [address] MCHC 32.8 G/dL Normal 32.0-36.0 [facility] Comment on above: Performed By: #### D IFF, BMP, CBC, GFR, MORPH #### [place] [address] MCV (RBC) [Entitic vol] 134.7 fL High 81.0-100.0 [facility] Comment on above: Performed By: #### D IFF, BMP, CBC, GFR, MORPH #### [place] [id number] Platelet 212 10 3/mcL Normal 150-450 [facility] Comment on above: Performed By: #### D IFF, BMP, CBC, GFR, MORPH #### [place] [address] Platelet mean volume (Bld) [Entitic vol] 7.2 fL Normal 6.4-10.5 [facility] Comment on above: Performed By: #### D IFF, BMP, CBC, GFR, MORPH #### [place] [address] RBC 2.10 10 6/mcL Low 4.50-6.00 [facility] Comment on above: Performed By: #### D IFF, BMP, CBC, GFR, MORPH #### [place] [address] WBC 29.7 10 3/mcL High 4.5-10.8 [facility] Comment on above: Performed By: #### D IFF, BMP, CBC, GFR, MORPH #### [place] [address] Erythrocyte distribution width (RBC) [Ratio] 16.9 % High 11.5-15.5 [facility] Comment on above: Performed By: #### D IFF, GFR, BMP, MORPH, CBC #### [place] [address] Hematocrit (Bld) [Volume fraction] 30.3 % Low 40.0-52.0 [facility] Comment on above: Performed By: #### D IFF, GFR, BMP, MORPH, CBC #### [place] [address] Hgb 10.0 G/dL Low 13.0-17.5 [facility] Comment on above: Performed By: #### D IFF, GFR, BMP, MORPH, CBC #### [place] [address] MCH (RBC) [Entitic mass] 44.4 pg High 27.0-33.0 [facility] Comment on above: Performed By: #### D IFF, GFR, BMP, MORPH, CBC #### [place] [address] MCHC 32.8 G/dL Normal 32.0-36.0 [facility] Comment on above: Performed By: #### D IFF, GFR, BMP, MORPH, CBC #### [place] [address] MCV (RBC) [Entitic vol] 135.1 fL High 81.0-100.0 [facility] Comment on above: Performed By: #### D IFF, GFR, BMP, MORPH, CBC #### [address] [address] Platelet 239 10 3/mcL Normal 150-450 [facility] Comment on above: Performed By: #### D IFF, GFR, BMP, MORPH, CBC #### [place] [address] Platelet mean volume (Bld) [Entitic vol] 7.0 fL Normal 6.4-10.5 [facility] Comment on above: Performed By: #### D IFF, GFR, BMP, MORPH, CBC #### [place] [address] RBC 2.24 10 6/mcL Low 4.50-6.00 [facility] Comment on above: Performed By: #### D IFF, GFR, BMP, MORPH, CBC #### [place] [address] WBC 35.2 10 3/mcL High 4.5-10.8 [facility] Comment on above: Performed By: #### D IFF, GFR, BMP, MORPH, CBC #### [place] [address] CKOrdered By: SYSTEM SYSTEM on 05-23-2024 CK [Catalytic activity/Vol] 47 U/L Normal 7-185 [facility] Comment on above: Performed By: #### D IFF, GFR, BMP, MORPH, CBC #### [place] [address] CKon 05-23-2024 CK [Catalytic activity/Vol] 63 U/L Normal 7-185 [facility] Comment on above: Performed By: #### D IFF, GFR, BMP, MORPH, CBC #### [place] [address] CT HEAD OR BRAIN W/O CONTRAS Ton 05-23-2024 CT HEAD OR BRAIN W/O CONTRAST ORIGINAL EXAMINATION: CT OF THE HEAD WITHOUT CONTRAST 05/23/2024 11:17 am TECHNIQUE: CT of the head was performed without the administration of intravenous contrast. Automated exposure control, iterative reconstruction, and/or weight based adjustment of the mA/kV was utilized to reduce the radiation dose to as low as reasonably achievable. COMPARISON: 05/05/2023 HISTORY: ORDERING SYSTEM PROVIDED HISTORY: Reason for Exam: fall on Xarelto. negative loc. pain FINDINGS: There is no intracranial hemorrhage, mass, mass effect or abnormal extra-axial fluid collection. No evidence of an acute territorial infarct is identified. Periventricular and subcortical white matter hypoattenuation is nonspecific but most commonly reflects microvascular angiopathy. There is cerebral parenchymal loss, with associated enlargement of the ventricles and sulci. Calcifications of the larger arteries are noted. There are senescent calcifications within the basal ganglia. The skull base and calvarium demonstrate no acute abnormality. There is minor left maxillary sinus and ethmoid air cell mucosal disease. Remaining paranasal sinuses are clear. There is new fluid within bilateral mastoid air cells. IMPRESSION: 1. No acute intracranial abnormality. 2. New fluid within bilateral mastoid air cells. Correlate for mastoiditis. Interpreted by: Olivier Chicas DO Preliminary Report By: Olivier Chicas DO Electronically signed By Olivier Chicas DO Dictated Date: 05/23/2024 11:19:44 AM Prelim Date: 05/23/2024 11:24:05 AM Sign Date: 05/23/2024 11:24:05 AM Ordering Provider: VILMA MARTINEZ [facility] MAIN CT SPINE CERVICAL W/O CONTRA STon 05-23-2024 CT SPINE CERVICAL W/O CONTRAST ORIGINAL EXAMINATION: CT OF THE CERVICAL SPINE WITHOUT CONTRAST 05/23/2024 11:18 am TECHNIQUE: CT of the cervical spine was performed without the administration of intravenous contrast. Multiplanar reformatted images are provided for review. Automated exposure control, iterative reconstruction, and/or weight based adjustment of the mA/kV was utilized to reduce the radiation dose to as low as reasonably achievable. COMPARISON: CT cervical spine 05/05/2023. HISTORY: ORDERING SYSTEM PROVIDED HISTORY: Reason for Exam: neck pain after fall. pain FINDINGS: BONES/ALIGNMENT: There is no acute fracture or traumatic malalignment. Unchanged mild depression of the superior endplate of C7 vertebral body. Unchanged degenerative minimal anterolisthesis of C3 on C4 and minimal retrolisthesis of C5 on C6. DEGENERATIVE CHANGES: Moderate to severe multilevel degenerative changes with disc space narrowing greatest at C5-C6, C6-C7 and C7-T1. No significant spinal canal stenosis. There is variable neural foraminal stenoses greatest at C5-C6 bilaterally. SOFT TISSUES: There is no prevertebral soft tissue swelling. OTHER: Bilateral nonspecific mastoid effusions. Aerated secretions within the visualized sphenoid sinuses. IMPRESSION: No acute abnormality of the cervical spine. Aerated secretions within the visualized sphenoid sinuses with bilateral mastoid effusions. Findings may represent acute sinusitis in appropriate clinical setting. Interpreted by: Maxi Palomo Preliminary Report By: Maxi Palomo Electronically signed By Maxi Palomo Dictated Date: 05/23/2024 11:31:13 AM Prelim Date: 05/23/2024 11:39:01 AM Sign Date: 05/23/2024 11:39:01 AM Ordering Provider: VILMA MARTINEZ [facility] MAIN LABORATORYOrdered By: SYSTEM SYSTEM on 05-23-2024 Troponin I.cardiac DL <= 0.01 ng/mL [Mass/Vol] 9 ng/L Normal 0 - 54 ng/L AH ADM SS Comment on above: Interpretive Data: High Sensitive Troponin I Reference Ranges: Female: 0-34 ng/L Male: 0-54 ng/L Testing performed on [employer] analyzer using direct chemiluminescent technology. Dacrocytes LM Ql (Bld) 1+ *NA* (05/23/24 5:00 PM) Invalid Interpretation Code Workflow SS Ovalocytes LM Ql (Bld) 1+ *NA* (05/23/24 5:00 PM) Invalid Interpretation Code Workflow SS Poikilocytosis LM Ql (Bld) 1+ *NA* (05/23/24 5:00 PM) Invalid Interpretation Code AH Workflow SS Polychromasia LM Ql (Bld) 1+ *NA* (05/23/24 5:00 PM) Invalid Interpretation Code AH Workflow SS PT International Ratio 1.2 ratio Invalid Interpretation Code AH [employer] SS Comment on above: Interpretive Data: Joan cruz [employer] (CHEST, 1992, 102:312S-25S) recommended therapeutic range for oral anticoagulant therapy is: LOW RISK: Prophylaxis of venous thrombosis INR: 2.0-3.0 Treatment of pulmonary embolism 2.0-3.0 Prevention of systemic embolism 2.0-3.0 HIGH RISK: Mechanical prosthetic valves 2.5-3.5 Variant lymphocytes/100 WBC (Bld) 20.0 % High 0.0 - 5.0 % AH Workflow SS CK [Catalytic activity/Vol] 63 U/L Normal 7 - 185 U/L AH ADM SS Differential Comment See Below 15 *NA* (05/23/24 10:16 AM) Invalid Interpretation Code AH Workflow SS Comment on above: Result Comment: Diff erential performed on albumin smear Ethanol [Mass/Vol] mg/dL Invalid Interpretation Code AH ADM SS Monocyte distribution width Auto (Bld) [Entitic vol] See Comment Invalid Interpretation Code 0.00 - 20.00 AH Hematology S Comment on above: Result Comment: The MDW result could not be reported due to a sample abnormality that prevents the MDW from being calculated. Ovalocytes LM Ql (Bld) 1+ *NA* (05/23/24 10:16 AM) Invalid Interpretation Code Workflow SS Stomatocytes LM Ql (Bld) 2+ *NA* (05/23/24 10:16 AM) Invalid Interpretation Code AH Workflow SS LABORATORYOrdered By: Nilam Galindo on 05-23-2024 Appearance (U) Clear (05/23/24 5:08 PM) Normal Clear AH Auto Urine SS Bilirubin Ql (U) Negative (05/23/24 5:08 PM) Normal Neg-Trace AH Auto Urine SS Color (U) Yellow (05/23/24 5:08 PM) Normal AH Auto Urine SS Glucose Test strip (U) [Mass/Vol] Negative Normal Negative AH Auto Urine SS Hemoglobin Auto test strip (U) [Mass/Vol] Negative (05/23/24 5:08 PM) Normal Neg-Trace AH Auto Urine SS Ketones Ql (U) Negative Normal Neg-Trace AH Auto Urine SS UA Leuk Est Trace *NA* (05/23/24 5:08 PM) Invalid Interpretation Code Negative AH Auto Urine SS UA Nitrite Negative (05/23/24 5:08 PM) Normal Negative AH Auto Urine SS UA pH 7.0 (05/23/24 5:08 PM) Normal 5.0 - 8.0 AH Auto Urine SS UA Protein Trace mg/dL Normal Negative AH Auto Urine SS UA Spec Grav 1.015 (05/23/24 5:08 PM) Normal 1.006-1.029 AH Auto Urine SS UA Specimen Type Clean Catch (05/23/24 5:08 PM) Normal AH Auto Urine SS UA Urobilinogen 0.2 E.U./dL Normal 0.2-1.0 AH Auto Urine SS LABORATORYOrdered By: Aria rod on 05-23-2024 ABO and Rh group Nom (Bld) Blood group B Rh(D) positive Invalid Interpretation Code AH BB Auto SS Blood group antibody screen Ql Negative ABSC (05/23/24 5:00 PM) Normal AH BB Auto SS Laboratory - Chemistry and C hemistry - challengeOrdered By: SYSTEM SYSTEM on 05-23-2024 Troponin I.cardiac DL <= 0.01 ng/mL [Mass/Vol] 10 ng/L Normal 0 - 54 ng/L ADM SS Comment on above: Interpretive Data: High Sensitive Troponin I Reference Ranges: Female: 0-34 ng/L Male: 0-54 ng/L Testing performed on [employer] IM analyzer using direct chemiluminescent technology. MGOrdered By: SYSTEM SYSTEM on 05-23-2024 Magnesium [Mass/Vol] 1.6 mg/dL Normal 1.6-2.4 A DM SS Comment on above: Performed By: #### D IFF, GFR, BMP, MORPH, CBC #### [place] [address] PHOSOrdered By: SYSTEM [employer] on 05-23-2024 Phosphate [Mass/Vol] 4.5 mg/dL Normal 2.4-5.1 A DM SS Comment on above: Interpretive Data: * *Note - New Reference Range in effect 19 Result Comment: No te - New Reference Range in effect 19 Performed By: #### D IFF, GFR, BMP, MORPH, CBC #### [place] [address] PROon 05-23-2024 INR Coag (PPP) [Relative time] 1.2 {INR} Normal [facility] Comment on above: Result Comment: [employer] (CHEST, 1992, 102:312S-25S) recommended therapeutic range for oral anticoagulant therapy is: LOW RISK: Prophylaxis of venous thrombosis INR: 2.0-3.0 Treatment of pulmonary embolism 2.0-3.0 Prevention of systemic embolism 2.0-3.0 HIGH RISK: Mechanical prosthetic valves 2.5-3.5 Performed By: #### D IFF, GFR, BMP, MORPH, CBC #### [place] [id number] PROOrdered By: SYSTEM SYSTEM on 05-23-2024 PT Coag (PPP) [Time] 13.2 s Normal 9.0-14.4 AH H emoHub SS Comment on above: Interpretive Data: E ffective 10/27/07, Protime results may be affected by some antibiotics (i.e. Ciprofloxacin, Azithromycin, Bactrim) which may potentiate the action of oral anticoagulants, with further increases in Protime/INR. Result Comment: Effe ctive 10/27/07, Protime results may be affected by some antibiotics (i.e. Ciprofloxacin, Azithromycin, Bactrim) which may potentiate the action of oral anticoagulants, with further increases in Protime/INR. Performed By: #### D IFF, GFR, BMP, MORPH, CBC #### [address] 05-23-2024 High Sensitivity Troponin I 10 ng/L Normal 0-54 [facility] Comment on above: Result Comment: High Sensitive Troponin I Reference Ranges: Female: 0-34 ng/L Male: 0-54 ng/L Testing performed on [employer] IM analyzer using direct chemiluminescent technology. Performed By: #### D IFF, GFR, BMP, MORPH, CBC #### [place] [address] High Sensitivity Troponin I 10 ng/L Normal 0-[address] [place] [address] MAIN Comment on above: Result Comment: High Sensitive Troponin I Reference Ranges: Female: 0-34 ng/L Male: 0-54 ng/L Testing performed on [employer] IM analyzer using direct chemiluminescent technology. Performed By: #### D IFF, GFR, BMP, MORPH, CBC #### [place] [address] High Sensitivity Troponin I 9 ng/L Normal 0-54 [facility] Comment on above: Result Comment: High Sensitive Troponin I Reference Ranges: Female: 0-34 ng/L Male: 0-54 ng/L Testing performed on [employer] IM analyzer using direct chemiluminescent technology. Performed By: #### D IFF, GFR, BMP, MORPH, CBC #### [place] [address] UAon 05-23-2024 Color (U) Yellow Normal [facility] Comment on above: Performed By: #### D IFF, GFR, BMP, MORPH, CBC #### [address] [address] Glucose (U) [Mass/Vol] Negative Normal Negative [facility] Comment on above: Performed By: #### D IFF, GFR, BMP, MORPH, CBC #### [place] [address] Ketones Ql (U) Negative Normal Neg-Trace [facility] Comment on above: Performed By: #### D IFF, GFR, BMP, MORPH, CBC #### [place] [address] UA Appear Clear Normal Clear [facility] Comment on above: Performed By: #### D IFF, GFR, BMP, MORPH, CBC #### [place] [address] UA Blood Negative Normal Neg-Trace [facility] Comment on above: Performed By: #### D IFF, GFR, BMP, MORPH, CBC #### [address] [address] UA Leuk Est Trace Normal Negative [facility] Comment on above: Performed By: #### D IFF, GFR, BMP, MORPH, CBC #### [address] [address] UA Nitrite Negative Normal Negative [facility] Comment on above: Performed By: #### D IFF, GFR, BMP, MORPH, CBC #### [place] [address] UA pH 7.0 Normal 5.0 - 8.0 [facility] Comment on above: Performed By: #### D IFF, GFR, BMP, MORPH, CBC #### [place] [id number] UA Protein Trace Normal Negative [facility] Comment on above: Performed By: #### D IFF, GFR, BMP, MORPH, CBC #### [place] [id number] UA Spec Grav 1.015 Normal 1.006-1.029 [facility] Comment on above: Performed By: #### D IFF, GFR, BMP, MORPH, CBC #### [facility] [address] [place] [address] UA Specimen Type Clean Catch Normal [facility] Comment on above: Performed By: #### D IFF, GFR, BMP, MORPH, CBC #### [facility] [address] [place] [address] UA Urobilinogen 0.2 E.U./dL Normal 0.2-1.0 [facility] Comment on above: Performed By: #### D IFF, GFR, BMP, MORPH, CBC #### [address] [address] Urobilinogen (U) [Mass/Vol] Negative Normal Neg-Trace [facility] Comment on above: Performed By: #### D IFF, GFR, BMP, MORPH, CBC #### [place] [id number] XR CHEST 1 VIEWon 05-23-2024 XR CHEST 1 VIEW ORIGINAL EXAMINATION: ONE XRAY VIEW OF THE CHEST 05/23/2024 11:17 am COMPARISON: CT chest 05/02/2024, chest x-ray 05/01/2024. HISTORY: ORDERING SYSTEM PROVIDED HISTORY: Reason for Exam: pain FINDINGS: Cardiomediastinal silhouette is stable. No focal consolidation, large pleural effusion or pneumothorax. Osseous structures appear intact. IMPRESSION: No acute radiographic findings. Interpreted by: Maxi Palomo Preliminary Report By: Maxi Palomo Electronically signed By Maxi Palomo Dictated Date: 05/23/2024 11:26:57 AM Prelim Date: 05/23/2024 11:28:54 AM Sign Date: 05/23/2024 11:28:54 AM Ordering Provider: VILMA MARTINEZ [facility] MAIN Celiac Disease Profileon ENDOMYSIAL IGA Negative Normal Negative [facility] Comment on above: Performed By: #### L 3410.2400, L501.6710 ####[facility] [id number] [place], [address] IMMUNOGLOB A QN 15 mg/dL Low 61-437 [facility] Comment on above: Result Comment: Resu lt confirmed on concentration. Performed By: #### L 3410.2400, L501.6710 ####[facility] [id number] [place], [address] tTG IGA <2 Normal 0-3 [facility] Comment on above: Result Comment: Nega tive 0 - 3 Weak Positive 4 - 10 Positive >10 Tissue Transglutaminase (tTG) has been identified as the endomysial antigen. Studies have demonstr- ated that endomysial IgA antibodies have over 99% specificity for gluten sensitive enteropathy. Performed By: #### L 3410.2400, L501.6710 ####[facility] [address] [place], [address] tTG IGG <2 Normal 0-5 [facility] Comment on above: Result Comment: Nega tive 0 - 5 Weak Positive 6 - 9 Positive >9Performed at: [facility] Director: Jorge Chatterjee PhD, Phone: [phone] Performed By: #### L 3410.2400, L501.6710 ####[facility] [address] [place], [address] CRPon 05-19-2024 C-REACTIVE PROT < 2.90 Normal 0.0-3.0 [facility] Comment on above: Result Comment: C-Re active Protein (CRP) provides useful information for thediagnosis, therapy and monitoring of inflammatory processesand associated diseases. For the evaluation of Relative Riskfor Cardiovascular Disease, a High Sensitivity CRP (HSCRP)should be ordered. Performed By: #### L 3410.2400, L501.6710 ####[facility] [id number] [place], [address] MR/BMS.BPon 05-15-2024 MR/BMS.BP Normal [facility] CBC W/Diff, Automatedon - PATH REV Reviewed Normal [facility] Comment on above: Order Comment: CRITI KENTRELL VALUE CALLED TO [id number]/25 1507 Preeti Natanael.RESULTS READ BACK BY SAME. Result Comment: Abso lute lymphocytosis suggestive of low grade lympho-proliferative disorder.Macrocytic anemia.Clinical correlation is necessary.Prashanth Machado M.D. 05/14/24 AMENDED REPORT 05/14/24 1504 PATH REV previously reported as: August Performed By: #### L 100.0100, L500.4050, L503.6550, L504.2610, L503.6030 ####[facility] [address] [place], [address] Comprehensive Metabolic Prof ilon 05-13-2024 Albumin [Mass/Vol] 3.5 g/dL Normal 3.2-5.0 [facility] Comment on above: Performed By: #### L 100.0100, L500.4050, L503.6550, L504.2610, L503.6030 ####[facility] [address] [place], [address] Albumin/Globulin [Mass ratio] 1.3 {ratio} Normal 0.9-2.4 [facility] Comment on above: Performed By: #### L 100.0100, L500.4050, L503.6550, L504.2610, L503.6030 ####[facility] [address] [place], [address] ALK P 65 U/L Normal 45-117 [facility] Comment on above: Performed By: #### L 100.0100, L500.4050, L503.6550, L504.2610, L503.6030 ####[facility] [address] [place], [address] ALT [Catalytic activity/Vol] 19 U/L Normal 16-61 [facility] Comment on above: Performed By: #### L 100.0100, L500.4050, L503.6550, L504.2610, L503.6030 ####[facility] [address] [place], [address] AST [Catalytic activity/Vol] 13 U/L Low 15-37 [facility] Comment on above: Performed By: #### L 100.0100, L500.4050, L503.6550, L504.2610, L503.6030 ####[facility] [address] [place], [address] Bilirubin [Mass/Vol] 0.40 mg/dL Normal 0.20-1.00 [facility] Comment on above: Result Comment: For patients on eltrombopag therapy, use of Dimension Lamar TBIL is not recommended. Performed By: #### L 100.0100, L500.4050, L503.6550, L504.2610, L503.6030 ####[facility] [address] [place], [address] BUN/CRE 22.2 RATIO High 10-20 [facility] Comment on above: Performed By: #### L 100.0100, L500.4050, L503.6550, L504.2610, L503.6030 ####[facility] [address] [place], [address] CA,Total 9.4 mg/dL Normal 8.5-10.1 [facility] Comment on above: Performed By: #### L 100.0100, L500.4050, L503.6550, L504.2610, L503.6030 ####[facility] [address] [place], [address] Chloride [Moles/Vol] 109 mmol/L High 98-107 [facility] Comment on above: Performed By: #### L 100.0100, L500.4050, L503.6550, L504.2610, L503.6030 ####[facility] [address] [place], [address] CO2 [Moles/Vol] 20.0 mmol/L Low 21.0-32.0 [facility] Comment on above: Performed By: #### L 100.0100, L500.4050, L503.6550, L504.2610, L503.6030 ####[facility] [address] [place], [address] Creatinine [Mass/Vol] 2.07 mg/dL High 0.70-1.30 [facility] Comment on above: Result Comment: The validity of the calculated GFR GFRAA in patients over70 years has not been determined. Clinical correlation isessential. Performed By: #### L 100.0100, L500.4050, L503.6550, L504.2610, L503.6030 ####[facility] [address] [place], [address] ECRCL 35.88 ml/min Normal [facility] Comment on above: Performed By: #### L 100.0100, L500.4050, L503.6550, L504.2610, L503.6030 ####[facility] [address] [place], [address] EST GFR - AA 41 mL/min Low >60 [facility] Comment on above: Result Comment: Afri can Italian GFR Calc Performed By: #### L 100.0100, L500.4050, L503.6550, L504.2610, L503.6030 ####[facility] [address] [place], [address] GAP 9 Normal 5-15 [facility] Comment on above: Performed By: #### L 100.0100, L500.4050, L503.6550, L504.2610, L503.6030 ####[facility] [address] [place], [address] GFR/1.73 sq M.predicted among non-blacks MDRD (S/P/Bld) [Vol rate/Area] 34 mL/min/{1.73_m2} Low >60 [facility] Comment on above: Result Comment: Non- GFR Calc Performed By: #### L 100.0100, L500.4050, L503.6550, L504.2610, L503.6030 ####[facility] [address] [place], [address] Globulin (S) [Mass/Vol] 2.7 g/dL Normal 2.2-4.2 [facility] Comment on above: Performed By: #### L 100.0100, L500.4050, L503.6550, L504.2610, L503.6030 ####[facility] [address] [place], [address] Glucose [Mass/Vol] 127 mg/dL High 74-106 [facility] Comment on above: Result Comment: Fast ing Glucose result greater than or equal to 126 mg/dLsuggests DIABETES MELLITUS per A.D.A. criteria. Performed By: #### L 100.0100, L500.4050, L503.6550, L504.2610, L503.6030 ####[facility] [address] [place], [address] Potassium [Moles/Vol] 4.8 mmol/L Normal 3.5-5.1 [facility] Comment on above: Performed By: #### L 100.0100, L500.4050, L503.6550, L504.2610, L503.6030 ####[facility] [address] [place], [address] Sodium [Moles/Vol] 138 mmol/L Normal 136-145 [facility] Comment on above: Performed By: #### L 100.0100, L500.4050, L503.6550, L504.2610, L503.6030 ####[facility] [address] [place], [address] T PROT 6.2 g/dL Low 6.4-8.2 [facility] Comment on above: Performed By: #### L 100.0100, L500.4050, L503.6550, L504.2610, L503.6030 ####[facility] [address] [place], [address] Urea nitrogen [Mass/Vol] 46 mg/dL High 7-18 [facility] Comment on above: Performed By: #### L 100.0100, L500.4050, L503.6550, L504.2610, L503.6030 ####[facility] [address] [place], [address] Ferritinon 05-13-2024 Ferritin [Mass/Vol] 64 ng/mL Normal 26-388 [facility] Comment on above: Performed By: #### L 100.0100, L500.4050, L503.6550, L504.2610, L503.6030 ####[facility] [address] [place], [address] Iron+Iron Binding Capacityon 05-13-2024 Iron [Mass/Vol] 122 ug/dL Normal 65-175 [facility] Comment on above: Performed By: #### L 100.0100, L500.4050, L503.6550, L504.2610, L503.6030 ####[facility] [address] [place], [address] IRON SATURATION 33.2 Normal 15.0-55.0 [facility] Comment on above: Performed By: #### L 100.0100, L500.4050, L503.6550, L504.2610, L503.6030 ####[facility] [address] [place], [address] TIBC 367 ug/dL Normal 250-450 [facility] Comment on above: Performed By: #### L 100.0100, L500.4050, L503.6550, L504.2610, L503.6030 ####[facility] [address] [place], [address] LDHon 05-13-2024 LDH 187 U/L Normal 87-241 [facility] Comment on above: Order Comment: 1 Performed By: #### L 100.0100, L500.4050, L503.6550, L504.2610, L503.6030 ####[facility] [address] [place], [address] Oncology Visit Reporton 04-16 Oncology Visit Report Normal [facility] Chest PA and Lateralon 05-11 Chest PA and Lateral Normal [facility] Ferritinon 05-11-2024 Ferritin [Mass/Vol] 79 ng/mL Normal 26-388 [facility] Comment on above: Performed By: #### L 503.6150, L503.6075, L503.6550, L500.3600 ####[facility] [address] [place], [address] Ironon 05-11-2024 Iron [Mass/Vol] 78 ug/dL Normal 65-175 [facility] Comment on above: Performed By: #### L 503.6150, L503.6075, L503.6550, L500.3600 ####[facility] [address] [place], [address] Iron Binding Capacity,Totalo n 05-11-2024 TIBC 367 ug/dL Normal 250-450 [facility] Comment on above: Performed By: #### L 503.6150, L503.6075, L503.6550, L500.3600 ####[facility] [address] [place], [address] M100.678on 05-11-2024 M100.678 SARS-CoV-2 (COVID 19 ) Negative INFLUENZA A Negative INFLUENZA B Negative RSV PCR Negative Normal [facility] Comment on above: Performed By: #### M 100.678 ####[facility] [address] [place], [address] Renal Profileon 05-11-2024 Albumin [Mass/Vol] 3.7 g/dL Normal 3.2-5.0 [facility] Comment on above: Performed By: #### L 503.6150, L503.6075, L503.6550, L500.3600 ####[facility] [address] [place], [address] BUN/CRE 16.3 RATIO Normal 10-20 [facility] Comment on above: Performed By: #### L 503.6150, L503.6075, L503.6550, L500.3600 ####[facility] [address] [place], [address] CA,Total 9.2 mg/dL Normal 8.5-10.1 [facility] Comment on above: Performed By: #### L 503.6150, L503.6075, L503.6550, L500.3600 ####[facility] [address] [place], [address] Chloride [Moles/Vol] 107 mmol/L Normal 98-107 [facility] Comment on above: Performed By: #### L 503.6150, L503.6075, L503.6550, L500.3600 ####[facility] [address] [place], [address] CO2 [Moles/Vol] 22.0 mmol/L Normal 21.0-32.0 [facility] Comment on above: Performed By: #### L 503.6150, L503.6075, L503.6550, L500.3600 ####[facility] [address] [place], [address] Creatinine [Mass/Vol] 2.02 mg/dL High 0.70-1.30 [facility] Comment on above: Result Comment: The validity of the calculated GFR GFRAA in patients over70 years has not been determined. Clinical correlation isessential. Performed By: #### L 503.6150, L503.6075, L503.6550, L500.3600 ####[facility] [address] [place], [address] EST GFR - AA 42 mL/min Low >60 [facility] Comment on above: Result Comment: Afri can Italian GFR Calc Performed By: #### L 503.6150, L503.6075, L503.6550, L500.3600 ####[facility] [address] [place], [address] GFR/1.73 sq M.predicted among non-blacks MDRD (S/P/Bld) [Vol rate/Area] 35 mL/min/{1.73_m2} Low >60 [facility] Comment on above: Result Comment: Non- GFR Calc Performed By: #### L 503.6150, L503.6075, L503.6550, L500.3600 ####[facility] [address] [place], [address] Glucose [Mass/Vol] 104 mg/dL Normal 74-106 [facility] Comment on above: Result Comment: Fast ing Glucose result from 100 to 125 mg/dLsuggests IMPAIRED HOMEOSTASIS per A.D.A. criteria. Performed By: #### L 503.6150, L503.6075, L503.6550, L500.3600 ####[facility] [address] [place], [address] Phosphate [Mass/Vol] 4.2 mg/dL Normal 2.5-4.9 [facility] Comment on above: Performed By: #### L 503.6150, L503.6075, L503.6550, L500.3600 ####[facility] [address] [place], [address] Potassium [Moles/Vol] 4.7 mmol/L Normal 3.5-5.1 [facility] Comment on above: Performed By: #### L 503.6150, L503.6075, L503.6550, L500.3600 ####[facility] [address] [place], [address] Sodium [Moles/Vol] 136 mmol/L Normal 136-145 [facility] Comment on above: Performed By: #### L 503.6150, L503.6075, L503.6550, L500.3600 ####[facility] [address] [place], [address] Urea nitrogen [Mass/Vol] 33 mg/dL High 7-18 [facility] Comment on above: Performed By: #### L 503.6150, L503.6075, L503.6550, L500.3600 ####[facility] [address] [place], [address] Cerv Spine 4 or 5 Viewson Cerv Spine 4 or 5 Views [facility] Orthopedic Visit Reporton Orthopedic Visit Report Normal [facility] 12 Lead EKG performed by [facility] on 05-05-2024 12 Lead EKG performed by [facility] Normal [facility] Cardiology Visit Reporton Cardiology Visit Report Normal [facility] .GFRon 05-03-2024 GFR 54 ml/min/1.73sqm [facility] Comment on above: Result Comment: GFR Population [...] 15 mL/min/1.73 square meters Performed By: #### D IFF, BMP, CBC, GFR, MORPH #### [place] [address] GFR Non- 45 ml/min/1.73sqm Normal [facility] Comment on above: Result Comment: GFR Population [...] 15 mL/min/1.73 square meters Performed By: #### D IFF, BMP, CBC, GFR, MORPH #### [address] [address] .Manual Diffon 05-03-2024 Basophil %, Manual 0.0 % Normal 0.0-2.5 [facility] Comment on above: Performed By: #### D IFF, BMP, CBC, GFR, MORPH #### [address] [address] Basophil, Abs Manual 0.0 10 3/mcL Normal 0.0-0.3 [facility] Comment on above: Performed By: #### D IFF, BMP, CBC, GFR, MORPH #### [address] [address] Eosinophil %, Manual 0.0 % Normal 0.0-6.0 [facility] Comment on above: Performed By: #### D IFF, BMP, CBC, GFR, MORPH #### [address] [address] Eosinophil, Abs Manual 0.0 10 3/mcL Normal 0.0-0.7 [facility] Comment on above: Performed By: #### D IFF, BMP, CBC, GFR, MORPH #### [address] [address] Lymphocyte %, Manual 82.0 % High 20.0-40.0 [facility] Comment on above: Performed By: #### D IFF, BMP, CBC, GFR, MORPH #### [address] [address] Lymphocyte, Abs Manual 17.4 10 3/mcL High 0.9-4.3 [facility] Comment on above: Performed By: #### D IFF, BMP, CBC, GFR, MORPH #### [address] [address] Monocyte %, Manual 0.0 % Low 2.0-13.0 [facility] Comment on above: Performed By: #### D IFF, BMP, CBC, GFR, MORPH #### [address] [address] Monocyte, Abs Manual 0.0 10 3/mcL Low 0.1-1.4 [facility] Comment on above: Performed By: #### D IFF, BMP, CBC, GFR, MORPH #### [address] [address] Neutrophil %, Manual 18.0 % Low 50.0-75.0 [facility] Comment on above: Performed By: #### D IFF, BMP, CBC, GFR, MORPH #### [address] [address] Neutrophil, Abs Manual 3.8 10 3/mcL Normal 2.3-8.1 [facility] Comment on above: Performed By: #### D IFF, BMP, CBC, GFR, MORPH #### [address] [address] Nucleated RBC 0.0 /100 WBC Normal [facility] Comment on above: Performed By: #### D IFF, BMP, CBC, GFR, MORPH #### [address] [address] .Morphon 05-03-2024 Anisocytosis Ql (Bld) 2+ Normal [facility] Comment on above: Performed By: #### D IFF, BMP, CBC, GFR, MORPH #### [place] [address] Differential Comment See Below Normal [facility] Comment on above: Result Comment: Diff erential performed on albumin smear Performed By: #### D IFF, BMP, CBC, GFR, MORPH #### [place] [address] Hypochrom 1+ Normal [facility] Comment on above: Performed By: #### D IFF, BMP, CBC, GFR, MORPH #### [place] [address] Macrocytosis 3+ Normal [facility] Comment on above: Performed By: #### D IFF, BMP, CBC, GFR, MORPH #### [place] [address] Platelet Estimate Normal [facility] Comment on above: Performed By: #### D IFF, BMP, CBC, GFR, MORPH #### [place] [address] Poik 1+ Normal [facility] Comment on above: Performed By: #### D IFF, BMP, CBC, GFR, MORPH #### [place] [address] Tear Cell 1+ Normal [facility] Comment on above: Performed By: #### D IFF, BMP, CBC, GFR, MORPH #### [place] [address] BMPon 05-03-2024 BUN/Creatinine Ratio 20.0 ratio Normal 10.0-22.0 [facility] Comment on above: Performed By: #### D IFF, GFR, BMP, MORPH, CBC #### [place] [address] Calcium [Mass/Vol] 9.8 mg/dL Normal 8.7-10.4 [facility] Comment on above: Performed By: #### D IFF, GFR, BMP, MORPH, CBC #### [address] [address] Chloride [Moles/Vol] 108 mmol/L Normal 98-110 [facility] Comment on above: Performed By: #### D IFF, GFR, BMP, MORPH, CBC #### [address] [address] CO2 [Moles/Vol] 24 mmol/L Normal 22-32 [facility] Comment on above: Performed By: #### D IFF, GFR, BMP, MORPH, CBC #### [address] [address] Creatinine [Mass/Vol] 1.55 mg/dL High 0.60-1.40 [facility] Comment on above: Result Comment: Test ing performed on [employer] analyzer using enzymatic creatinine methodology. Performed By: #### D IFF, GFR, BMP, MORPH, CBC #### [address] [address] Electrolyte Balance 8.0 mEq/L Normal 4.0-15.0 [facility] Comment on above: Performed By: #### D IFF, GFR, BMP, MORPH, CBC #### [address] [address] Glucose [Mass/Vol] 128 mg/dL High 82-115 [facility] Comment on above: Performed By: #### D IFF, GFR, BMP, MORPH, CBC #### [address] [address] Potassium [Moles/Vol] 4.4 mmol/L Normal 3.5-5.0 [facility] Comment on above: Performed By: #### D IFF, GFR, BMP, MORPH, CBC #### [address] [address] Sodium [Moles/Vol] 140 mmol/L Normal 136-145 [facility] Comment on above: Performed By: #### D IFF, GFR, BMP, MORPH, CBC #### [address] [address] Urea nitrogen [Mass/Vol] 31.0 mg/dL High 8.0-22.0 [facility] Comment on above: Performed By: #### D IFF, GFR, BMP, MORPH, CBC #### [place] [address] CBCon 05-03-2024 Erythrocyte distribution width (RBC) [Ratio] 16.1 % High 11.5-15.5 [facility] Comment on above: Performed By: #### D IFF, GFR, BMP, MORPH, CBC #### [place] [address] Hematocrit (Bld) [Volume fraction] 26.1 % Low 40.0-52.0 [facility] Comment on above: Performed By: #### D IFF, GFR, BMP, MORPH, CBC #### [place] [address] Hgb 8.6 G/dL Low 13.0-17.5 [facility] Comment on above: Performed By: #### D IFF, GFR, BMP, MORPH, CBC #### [place] [address] MCH (RBC) [Entitic mass] 43.8 pg High 27.0-33.0 [facility] Comment on above: Performed By: #### D IFF, GFR, BMP, MORPH, CBC #### [place] [address] MCHC 32.8 G/dL Normal 32.0-36.0 [facility] Comment on above: Performed By: #### D IFF, GFR, BMP, MORPH, CBC #### [place] [address] MCV (RBC) [Entitic vol] 133.7 fL High 81.0-100.0 [facility] Comment on above: Performed By: #### D IFF, GFR, BMP, MORPH, CBC #### [place] [address] Platelet 324 10 3/mcL Normal 150-450 [facility] Comment on above: Performed By: #### D IFF, GFR, BMP, MORPH, CBC #### [facility] [address] [place] [address] Platelet mean volume (Bld) [Entitic vol] 7.6 fL Normal 6.4-10.5 [facility] Comment on above: Performed By: #### D IFF, GFR, BMP, MORPH, CBC #### [facility] [address] [place] [address] RBC 1.95 10 6/mcL Low 4.50-6.00 [facility] Comment on above: Performed By: #### D IFF, GFR, BMP, MORPH, CBC #### [facility] [address] [place] [address] WBC 21.2 10 3/mcL High 4.5-10.8 [facility] Comment on above: Performed By: #### D IFF, GFR, BMP, MORPH, CBC #### [place] [id number] [place] [id number] LABORATORYOrdered By: Kodi Guadalupe on 05-03-2024 Blood Glucose Testing Reason Routine (05/03/24 8:22 AM) [facility] Work Phone: Glucose [Mass/Vol] 118 mg/dL High 82 - 115 mg/dL [facility] Work Phone: LABORATORYOrdered By: SYSTEM SYSTEM on 05-03-2024 Anisocytosis Ql (Bld) 2+ *NA* (05/03/24 5:50 AM) Invalid Interpretation Code Workflow SS Basophils (Bld) [#/Vol] 0.0 103/mcL Normal 0.0 - 0.3 10^3/mcL AH Workflow SS Basophils/100 WBC (Bld) 0.0 % Normal 0.0 - 2.5 % AH Workflow SS Calcium [Mass/Vol] 9.8 mg/dL Normal 8.7 - 10. 4 mg/dL ADM SS Chloride [Moles/Vol] 108 mmol/L Normal 98 - 11 0 mEq/L ADM SS CO2 [Moles/Vol] 24 mmol/L Normal 22 - 32 mEq/L ADM SS Creatinine [Mass/Vol] 1.55 mg/dL High 0.60 - 1.40 mg/dL ADM SS Comment on above: Interpretive Data: T esting performed on [employer] CH analyzer using enzymatic creatinine methodology. Dacrocytes LM Ql (Bld) 1+ *NA* (05/03/24 5:50 AM) Invalid Interpretation Code Workflow SS Differential Comment See Below 4 *NA* (05/03/24 5:50 AM) Invalid Interpretation Code Workflow SS Comment on above: Result Comment: Diff erential performed on albumin smear Electrolyte Balance 8.0 mEq/L Normal 4.0 - 15 .0 mEq/L AH ADM SS Eosinophils (Bld) [#/Vol] 0.0 103/mcL Normal 0.0 - 0.7 10^3/mcL AH Workflow SS Eosinophils/100 WBC (Bld) 0.0 % Normal 0.0 - 6.0 % AH Workflow SS Erythrocyte distribution width (RBC) [Ratio] 16.1 % High 11.5 - 15.5 % AH Workflow SS GFR/1.73 sq M.predicted among blacks MDRD (S/P/Bld) [Vol rate/Area] 54 ml/min/1.73sqm Invalid Interpretation Code Anyone Home Chemistry S Comment on above: Interpretive Data: GFR Population mean for , Non- Americans Ages 20-29 = 116 mL/min/1.73 sq.m. Ages 30-39 = 107 mL/min/1.73 sq.m. Ages 40-49 = 99 mL/min/1.73 sq.m. Ages 50-59 = 93 mL/min/1.73 sq.m. Ages 60-69 = 85 mL/min/1.73 sq.m. Ages 70+ = 75 mL/min/1.73 sq.m. Chronic Kidney Disease: Less than 60 mL/min/1.73 square meters End Stage Renal Disease: Less than 15 mL/min/1.73 square meters GFR/1.73 sq M.predicted among non-blacks MDRD (S/P/Bld) [Vol rate/Area] 45 ml/min/1.73sqm Invalid Interpretation Code Anyone Home Chemistry S Comment on above: Interpretive Data: GFR Population mean for , Non- Americans Ages 20-29 = 116 mL/min/1.73 sq.m. Ages 30-39 = 107 mL/min/1.73 sq.m. Ages 40-49 = 99 mL/min/1.73 sq.m. Ages 50-59 = 93 mL/min/1.73 sq.m. Ages 60-69 = 85 mL/min/1.73 sq.m. Ages 70+ = 75 mL/min/1.73 sq.m. Chronic Kidney Disease: Less than 60 mL/min/1.73 square meters End Stage Renal Disease: Less than 15 mL/min/1.73 square meters Glucose [Mass/Vol] 128 mg/dL High 82 - 115 mg/dL AH ADM SS Hematocrit (Bld) [Volume fraction] 26.1 % Low 40.0 - 52.0 % AH Workflow SS Hemoglobin (Bld) [Mass/Vol] 8.6 G/dL Low 13.0 - 17.5 G/dL AH Workflow SS Hypochromia Ql (Bld) 1+ *NA* (05/03/24 5:50 AM) Invalid Interpretation Code AH Workflow SS Lymphocytes (Bld) [#/Vol] 17.4 103/mcL High 0.9 - 4.3 10^3/mcL AH Workflow SS Lymphocytes/100 WBC (Bld) 82.0 % High 20.0 - 40.0 % AH Workflow SS Macrocytes Ql (Bld) 3+ *NA* (05/03/24 5:50 AM) Invalid Interpretation Code AH Workflow SS MCH (RBC) [Entitic mass] 43.8 pg High 27.0 - 33.0 pg AH Workflow SS MCHC 32.8 G/dL Normal 32.0 - 36.0 G/dL AH Workflow SS MCV (RBC) [Entitic vol] 133.7 fL High 81.0 - 100.0 fL AH Workflow SS Monocytes (Bld) [#/Vol] 0.0 103/mcL Low 0.1 - 1.4 10^3/mcL AH Workflow SS Monocytes/100 WBC (Bld) 0.0 % Low 2.0 - 13.0 % AH Workflow SS Neutrophils (Bld) [#/Vol] 3.8 103/mcL Normal 2.3 - 8.1 10^3/mcL AH Workflow SS Neutrophils/100 WBC (Bld) 18.0 % Low 50.0 - 75.0 % AH Workflow SS Nucleated RBC 0.0 /100 WBC Invalid Interpretation Code AH Workflow SS Platelet mean volume (Bld) [Entitic vol] 7.6 fL Normal 6.4 - 10.5 fL AH Workflow SS Platelets (Bld) [#/Vol] 324 103/mcL Normal 150 - 450 10^3/mcL AH Workflow SS Platelets LM Ql (Bld) Normal *NA* (05/03/24 5:50 AM) Invalid Interpretation Code AH Workflow SS Poikilocytosis LM Ql (Bld) 1+ *NA* (05/03/24 5:50 AM) Invalid Interpretation Code AH Workflow SS Potassium [Moles/Vol] 4.4 mmol/L Normal 3.5 - 5.0 mEq/L AH ADM SS RBC (Bld) [#/Vol] 1.95 106/mcL Low 4.50 - 6.0 0 10^6/mcL AH Workflow SS Sodium [Moles/Vol] 140 mmol/L Normal 136 - 145 mEq/L ADM SS Urea nitrogen [Mass/Vol] 31.0 mg/dL High 8.0 - 22.0 mg/dL ADM SS Urea nitrogen/Creatinine [Mass ratio] 20.0 ratio Normal 10.0 - 22.0 ratio AH ADM SS WBC (Bld) [#/Vol] 21.2 103/mcL High 4.5 - 10.8 10^3/mcL AH Workflow SS MYCOon 05-03-2024 Mycoplasma IgG Negative Normal [facility] Comment on above: Result Comment: INTE RPRETATION OF MYCOPLASMA IgG BY EIA: Negative: No detectable M. pneumoniae IgG antibody. Positive: Mycoplasma pneumoniae IgG antibody Detected. Equivocal: Equivocal for IgG antibodies to Mycoplasma pneumoniae. Suggest repeat testing in 10-14 days. Performed By: #### D IFF, GFR, BMP, MORPH, CBC #### [place] [address] .GFRon 05-02-2024 GFR 52 ml/min/1.73sqm Normal [facility] Comment on above: Result Comment: GFR Population [...] 15 mL/min/1.73 square meters Performed By: #### D IFF, GFR, BMP, MORPH, CBC #### [address] [address] GFR Non- 43 ml/min/1.73sqm Normal [facility] Comment on above: Result Comment: GFR Population [...] 15 mL/min/1.73 square meters Performed By: #### D IFF, GFR, BMP, MORPH, CBC #### [address] [address] .Manual Diffon 05-02-2024 Bands 2.0 % Normal 0.0-5.0 [facility] Comment on above: Performed By: #### D IFF, GFR, BMP, MORPH, CBC #### [address] [address] Basophil %, Manual 0.0 % Normal 0.0-2.5 [facility] Comment on above: Performed By: #### D IFF, GFR, BMP, MORPH, CBC #### [address] [address] Basophil, Abs Manual 0.0 10 3/mcL Normal 0.0-0.3 [facility] Comment on above: Performed By: #### D IFF, GFR, BMP, MORPH, CBC #### [address] [address] Eosinophil %, Manual 0.0 % Normal 0.0-6.0 [facility] Comment on above: Performed By: #### D IFF, GFR, BMP, MORPH, CBC #### [address] [address] Eosinophil, Abs Manual 0.0 10 3/mcL Normal 0.0-0.7 [facility] Comment on above: Performed By: #### D IFF, GFR, BMP, MORPH, CBC #### [address] [address] Lymphocyte %, Manual 79.0 % High 20.0-40.0 [facility] Comment on above: Performed By: #### D IFF, GFR, BMP, MORPH, CBC #### [address] [address] Lymphocyte, Abs Manual 18.9 10 3/mcL High 0.9-4.3 [facility] Comment on above: Performed By: #### D IFF, GFR, BMP, MORPH, CBC #### [address] [address] Monocyte %, Manual 5.0 % Normal 2.0-13.0 [facility] Comment on above: Performed By: #### D IFF, GFR, BMP, MORPH, CBC #### [address] [address] Monocyte, Abs Manual 1.2 10 3/mcL Normal 0.1-1.4 [facility] Comment on above: Performed By: #### D IFF, GFR, BMP, MORPH, CBC #### [address] [address] Neutrophil %, Manual 14.0 % Low 50.0-75.0 [facility] Comment on above: Performed By: #### D IFF, GFR, BMP, MORPH, CBC #### [address] [address] Neutrophil, Abs Manual 3.9 10 3/mcL Normal 2.3-8.1 [facility] Comment on above: Performed By: #### D IFF, GFR, BMP, MORPH, CBC #### [address] [address] Nucleated RBC 0.0 /100 WBC Normal [facility] Comment on above: Performed By: #### D IFF, GFR, BMP, MORPH, CBC #### [address] [address] .Morphon 05-02-2024 Anisocytosis Ql (Bld) 1+ Normal [facility] Comment on above: Performed By: #### D IFF, GFR, BMP, MORPH, CBC #### [place] [address] Macrocytosis 1+ Normal [facility] Comment on above: Performed By: #### D IFF, GFR, BMP, MORPH, CBC #### [place] [address] Ovalocytes 1+ [facility] Comment on above: Performed By: #### D IFF, GFR, BMP, MORPH, CBC #### [place] [address] Platelet Estimate Normal [facility] Comment on above: Performed By: #### D IFF, GFR, BMP, MORPH, CBC #### [place] [address] Polychrom 1+ [facility] Comment on above: Performed By: #### D IFF, GFR, BMP, MORPH, CBC #### [place] [address] Smudge Cells 2+ [facility] Comment on above: Performed By: #### D IFF, GFR, BMP, MORPH, CBC #### [place] [address] Stomatocytes 1+ [facility] Comment on above: Performed By: #### D IFF, GFR, BMP, MORPH, CBC #### [place] [address] Tear Cell 1+ [facility] Comment on above: Performed By: #### D IFF, GFR, BMP, MORPH, CBC #### [place] [address] BMPon 05-02-2024 BUN/Creatinine Ratio 17.5 ratio Normal 10.0-22.0 [facility] Comment on above: Performed By: #### D IFF, GFR, BMP, MORPH, CBC #### [address] [address] Calcium [Mass/Vol] 9.4 mg/dL Normal 8.7-10.4 [facility] Comment on above: Performed By: #### D IFF, GFR, BMP, MORPH, CBC #### [address] [address] Chloride [Moles/Vol] 108 mmol/L Normal 98-110 [facility] Comment on above: Performed By: #### D IFF, GFR, BMP, MORPH, CBC #### [address] [address] CO2 [Moles/Vol] 22 mmol/L Normal 22-32 [facility] Comment on above: Performed By: #### D IFF, GFR, BMP, MORPH, CBC #### [place] [id number] Creatinine [Mass/Vol] 1.60 mg/dL High 0.60-1.40 [facility] Comment on above: Result Comment: Test ing performed on [employer] analyzer using enzymatic creatinine methodology. Performed By: #### D IFF, GFR, BMP, MORPH, CBC #### [place] [address] Electrolyte Balance 9.0 mEq/L Normal 4.0-15.0 [facility] Comment on above: Performed By: #### D IFF, GFR, BMP, MORPH, CBC #### [address] [address] Glucose [Mass/Vol] 127 mg/dL High 82-115 [facility] Comment on above: Performed By: #### D IFF, GFR, BMP, MORPH, CBC #### [place] [id number] Potassium [Moles/Vol] 3.9 mmol/L Normal 3.5-5.0 [facility] Comment on above: Performed By: #### D IFF, GFR, BMP, MORPH, CBC #### [address] [address] Sodium [Moles/Vol] 139 mmol/L Normal 136-145 [facility] Comment on above: Performed By: #### D IFF, GFR, BMP, MORPH, CBC #### [place] [address] Urea nitrogen [Mass/Vol] 28.0 mg/dL High 8.0-22.0 [facility] Comment on above: Performed By: #### D IFF, GFR, BMP, MORPH, CBC #### [place] [address] CBCon 05-02-2024 Erythrocyte distribution width (RBC) [Ratio] 16.6 % High 11.5-15.5 [facility] Comment on above: Performed By: #### D IFF, GFR, BMP, MORPH, CBC #### [place] [address] Hematocrit (Bld) [Volume fraction] 26.0 % Low 40.0-52.0 [facility] Comment on above: Performed By: #### D IFF, GFR, BMP, MORPH, CBC #### [place] [address] Hgb 8.6 G/dL Low 13.0-17.5 [facility] Comment on above: Performed By: #### D IFF, GFR, BMP, MORPH, CBC #### [place] [address] MCH (RBC) [Entitic mass] 44.5 pg High 27.0-33.0 [facility] Comment on above: Performed By: #### D IFF, GFR, BMP, MORPH, CBC #### [place] [address] MCHC 33.2 G/dL Normal 32.0-36.0 [facility] Comment on above: Performed By: #### D IFF, GFR, BMP, MORPH, CBC #### [place] [address] MCV (RBC) [Entitic vol] 134.1 fL High 81.0-100.0 [facility] Comment on above: Performed By: #### D IFF, GFR, BMP, MORPH, CBC #### [facility] [address] [place] [address] Platelet 260 10 3/mcL Normal 150-450 [facility] Comment on above: Performed By: #### D IFF, GFR, BMP, MORPH, CBC #### [facility] [address] [place] [address] Platelet mean volume (Bld) [Entitic vol] 7.0 fL Normal 6.4-10.5 [facility] Comment on above: Performed By: #### D IFF, GFR, BMP, MORPH, CBC #### [facility] [address] [place] [address] RBC 1.94 10 6/mcL Low 4.50-6.00 [facility] Comment on above: Performed By: #### D IFF, GFR, BMP, MORPH, CBC #### [facility] [address] [place] [address] WBC 24.0 10 3/mcL High 4.5-10.8 [facility] Comment on above: Performed By: #### D IFF, GFR, BMP, MORPH, CBC #### [facility] [address] [place] [address] THORAX W/O CONTRASTon CT THORAX W/O CONTRAST ORIGINAL HISTORY: Cough, nodules COMPARISON: 05 May 2023 TECHNIQUE: Chest CT with sagittal and coronal reconstructions. This exam was performed according to our departmental dose optimization program, and includes the following measures where applicable: automated exposure control, adjustment of the mAs and/or kVp according to patient size and/or exam, and an iterative reconstruction algorithm. FINDINGS: There is irregular patchy consolidation in the right mid lung, with small scattered areas ground-glass opacification throughout much of the right upper lobe, and denser consolidation adjacent to the major fissures. In the right base, there is extensive small airway disease in the lower lobes along with mild bronchiectasis and bronchial wall thickening. There is milder bronchiectasis and scattered small airway disease on the left. There is mild axillary lymphadenopathy on both sides with nodes ranging in size up to about 10 mm. There is more prominent mediastinal lymphadenopathy, with nodes ranging in size up to a 15 mm right paratracheal node. 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 Chest wall structures are otherwise unremarkable. IMPRESSION: Mild to moderate right and minimal left consolidation. This should be followed to radiographic resolution. Mild lymphadenopathy. Interpreted by: Pantera Phillips MD Preliminary Report By: Pantera Phillips MD Electronically signed By Pantera Phillips MD Dictated Date: 05/02/2024 1:24:13 PM Prelim Date: 05/02/2024 1:27:50 PM Sign Date: 05/02/2024 1:27:50 PM Ordering Provider: JEYSON AGUIAR Normal [facility] LABORATORYOrdered By: Bianca Fajardo on 05-02-2024 Glucose [Mass/Vol] 194 mg/dL High 82 - 115 mg/dL [facility] Work Phone: LABORATORYOrdered By: Jeroem houston on 05-02-2024 Blood Glucose Testing Reason Routine (05/02/24 4:50 PM) [facility] Work Phone: Glucose [Mass/Vol] 130 mg/dL High 82 - 115 mg/dL [facility] Work Phone: LABORATORYOrdered By: Eveline fam on 05-02-2024 Blood Glucose Testing Reason Routine (05/02/24 11:50 AM) [facility] Work Phone: LABORATORYOrdered By: Aleja Gamble on 05-02-2024 MRSA (PCR) Not Detected 1 (05/02/24 5:15 AM) Normal Not Detected [facility] SS Comment on above: Result Comment: [place] s [id number] MRSA PCR Int MRSA DNA not detecte d by Real-Time Polymerase Chain Reaction (PCR). A negative result may be due to intermittent colonization. Colonization may vary depending on patient treatment, patient status, or exposure to high-risk environments.As with all PCR based in vitro diagnostic tests, extremely low levels of target below the limit of detection of the assay may be detected, but results may not be reproducible. Invalid Interpretation Code AH [facility] SS M. pneumoniae IgM IA Ql (S) Negative 5 (05/02/24 12:55 AM) Normal AH Man [facility] SS Comment on above: Interpretive Data: I NTERPRETATION OF MYCOPLASMA IgM: Negative: IgM to M. pneumoniae Absent, or at levels below the assay limit of detection. Positive: IgM to M. pneumoniae Present. Invalid: Test results are invalid due to invalid internal control. Assay was performed in duplicate. Repeat testing is suggested if clinically indicated. LABORATORYOrdered By: SYSTEM SYSTEM on 05-02-2024 Anisocytosis Ql (Bld) 1+ *NA* (05/02/24 12:55 AM) Invalid Interpretation Code Workflow SS Band form neutrophils/100 WBC (Bld) 2.0 % Normal 0.0 - 5.0 % AH Workflow SS Basophils (Bld) [#/Vol] 0.0 103/mcL Normal 0.0 - 0.3 10^3/mcL AH Workflow SS Basophils/100 WBC (Bld) 0.0 % Normal 0.0 - 2.5 % AH Workflow SS Calcium [Mass/Vol] 9.4 mg/dL Normal 8.7 - 10. 4 mg/dL ADM SS Chloride [Moles/Vol] 108 mmol/L Normal 98 - 11 0 mEq/L ADM SS CO2 [Moles/Vol] 22 mmol/L Normal 22 - 32 mEq/L ADM SS Creatinine [Mass/Vol] 1.60 mg/dL High 0.60 - 1.40 mg/dL ADM SS Comment on above: Interpretive Data: T esting performed on [employer] analyzer using enzymatic creatinine methodology. Dacrocytes LM Ql (Bld) 1+ *NA* (05/02/24 12:55 AM) Invalid Interpretation Code Workflow SS Electrolyte Balance 9.0 mEq/L Normal 4.0 - 15 .0 mEq/L ADM SS Eosinophils (Bld) [#/Vol] 0.0 103/mcL Normal 0.0 - 0.7 10^3/mcL Workflow SS Eosinophils/100 WBC (Bld) 0.0 % Normal 0.0 - 6.0 % Workflow SS Erythrocyte distribution width (RBC) [Ratio] 16.6 % High 11.5 - 15.5 % Workflow SS GFR/1.73 sq M.predicted among blacks MDRD (S/P/Bld) [Vol rate/Area] 52 ml/min/1.73sqm Invalid Interpretation Code Chemistry S Comment on above: Interpretive Data: GFR Population mean for , Non- Americans Ages 20-29 = 116 mL/min/1.73 sq.m. Ages 30-39 = 107 mL/min/1.73 sq.m. Ages 40-49 = 99 mL/min/1.73 sq.m. Ages 50-59 = 93 mL/min/1.73 sq.m. Ages 60-69 = 85 mL/min/1.73 sq.m. Ages 70+ = 75 mL/min/1.73 sq.m. Chronic Kidney Disease: Less than 60 mL/min/1.73 square meters End Stage Renal Disease: Less than 15 mL/min/1.73 square meters GFR/1.73 sq M.predicted among non-blacks MDRD (S/P/Bld) [Vol rate/Area] 43 ml/min/1.73sqm Invalid Interpretation Code Chemistry S Comment on above: Interpretive Data: GFR Population mean for , Non- Americans Ages 20-29 = 116 mL/min/1.73 sq.m. Ages 30-39 = 107 mL/min/1.73 sq.m. Ages 40-49 = 99 mL/min/1.73 sq.m. Ages 50-59 = 93 mL/min/1.73 sq.m. Ages 60-69 = 85 mL/min/1.73 sq.m. Ages 70+ = 75 mL/min/1.73 sq.m. Chronic Kidney Disease: Less than 60 mL/min/1.73 square meters End Stage Renal Disease: Less than 15 mL/min/1.73 square meters Glucose [Mass/Vol] 127 mg/dL High 82 - 115 mg/dL ADM SS Hematocrit (Bld) [Volume fraction] 26.0 % Low 40.0 - 52.0 % Workflow SS Hemoglobin (Bld) [Mass/Vol] 8.6 G/dL Low 13.0 - 17.5 G/dL Workflow SS Lymphocytes (Bld) [#/Vol] 18.9 103/mcL High 0.9 - 4.3 10^3/mcL Workflow SS Lymphocytes/100 WBC (Bld) 79.0 % High 20.0 - 40.0 % Workflow SS Macrocytes Ql (Bld) 1+ *NA* (05/02/24 12:55 AM) Invalid Interpretation Code Workflow SS Magnesium [Mass/Vol] 1.6 mg/dL Normal 1.6 - 2 .4 mg/dL AH ADM SS MCH (RBC) [Entitic mass] 44.5 pg High 27.0 - 33.0 pg AH Workflow SS MCHC 33.2 G/dL Normal 32.0 - 36.0 G/dL AH Workflow SS MCV (RBC) [Entitic vol] 134.1 fL High 81.0 - 100.0 fL AH Workflow SS Monocytes (Bld) [#/Vol] 1.2 103/mcL Normal 0.1 - 1.4 10^3/mcL AH Workflow SS Monocytes/100 WBC (Bld) 5.0 % Normal 2.0 - 13.0 % AH Workflow SS Neutrophils (Bld) [#/Vol] 3.9 103/mcL Normal 2.3 - 8.1 10^3/mcL AH Workflow SS Neutrophils/100 WBC (Bld) 14.0 % Low 50.0 - 75.0 % AH Workflow SS Nucleated RBC 0.0 /100 WBC Invalid Interpretation Code AH Workflow SS Ovalocytes LM Ql (Bld) 1+ *NA* (05/02/24 12:55 AM) Invalid Interpretation Code AH Workflow SS Platelet mean volume (Bld) [Entitic vol] 7.0 fL Normal 6.4 - 10.5 fL AH Workflow SS Platelets (Bld) [#/Vol] 260 103/mcL Normal 150 - 450 10^3/mcL AH Workflow SS Platelets LM Ql (Bld) Normal *NA* (05/02/24 12:55 AM) Invalid Interpretation Code AH Workflow SS Polychromasia LM Ql (Bld) 1+ *NA* (05/02/24 12:55 AM) Invalid Interpretation Code AH Workflow SS Potassium [Moles/Vol] 3.9 mmol/L Normal 3.5 - 5.0 mEq/L ADM SS RBC (Bld) [#/Vol] 1.94 106/mcL Low 4.50 - 6.0 0 10^6/mcL AH Workflow SS Smudge cells LM Ql (Bld) 2+ *NA* (05/02/24 12:55 AM) Invalid Interpretation Code AH Workflow SS Sodium [Moles/Vol] 139 mmol/L Normal 136 - 145 mEq/L ADM SS Stomatocytes LM Ql (Bld) 1+ *NA* (05/02/24 12:55 AM) Invalid Interpretation Code AH Workflow SS Urea nitrogen [Mass/Vol] 28.0 mg/dL High 8.0 - 22.0 mg/dL AH ADM SS Urea nitrogen/Creatinine [Mass ratio] 17.5 ratio Normal 10.0 - 22.0 ratio AH ADM SS WBC (Bld) [#/Vol] 24.0 103/mcL High 4.5 - 10.8 10^3/mcL Workflow SS LABORATORYOrdered By: Marv stephenson Jesse on 05-02-2024 M. pneumoniae IgG IA Ql (S) Negative Invalid Interpretation Code Auto [facility]iro[facility]Sero SS Comment on above: Interpretive Data: I NTERPRETATION OF MYCOPLASMA IgG BY EIA: Negative: No detectable M. pneumoniae IgG antibody. Positive: Mycoplasma pneumoniae IgG antibody Detected. Equivocal: Equivocal for IgG antibodies to Mycoplasma pneumoniae. Suggest repeat testing in 10-14 days. MGon 05-02-2024 Magnesium [Mass/Vol] 1.6 mg/dL Normal 1.6-2.4 [facility] Comment on above: Performed By: #### D IFF, GFR, BMP, MORPH, CBC #### [place] [address] MRSAPCRon 05-02-2024 MRSA (PCR) Not detected Normal Not Detected [facility] Comment on above: Result Comment: [place] [id number] Performed By: #### D IFF, GFR, BMP, MORPH, CBC #### [place] [address] MRSA PCR Int Normal [facility] Comment on above: Result Comment: MRSA DNA not detected by Real-Time Polymerase Chain Reaction (PCR). A negative result may be due to intermittent colonization. Colonization may vary depending on patient treatment, patient status, or exposure to high-risk environments. As with all PCR based in vitro diagnostic tests, extremely low levels of target below the limit of detection of the assay may be detected, but results may not be reproducible. See Below Performed By: #### D IFF, GFR, BMP, MORPH, CBC #### [place] [address] MYCOon 05-02-2024 Mycoplasma IgM Negative Normal [facility] Comment on above: Result Comment: INTE RPRETATION OF MYCOPLASMA IgM: Negative: IgM to M. pneumoniae Absent, or at levels below the assay limit of detection. Positive: IgM to M. pneumoniae Present. Invalid: Test results are invalid due to invalid internal control. Assay was performed in duplicate. Repeat testing is suggested if clinically indicated. Performed By: #### D IFF, GFR, BMP, MORPH, CBC #### [facility] [address] [place] [address] No Panel InformationOrdered By: Pavel Solomon on 05-02-2024 Culture Respiratory with Gram Stain Culture results pending. [facility] Comment on above: Requests for Mycopla sma, Legionella, Fungi, Mycobacteria, Chlamydia, and Viruses require ordering of those individual tests. GS 1+ Epithelial cells 3+ Polymorphonuclear cells 3+ Gram Negative Rods 3+ Gram Positive Cocci Rare Yeast [facility] Comment on above: Requests for Mycopla sma, Legionella, Fungi, Mycobacteria, Chlamydia, and Viruses require ordering of those individual tests. No Panel Informationon 05-02 Legionella Urine Ag Presumptive negative for L. pneumophila serogroup 1 antigen in urine, suggesting no recent or current infection. Legionnaire's disease cannot be ruled out since other serogroups and species may also cause disease. [facility] Work Phone: Streptococcus Pneumoniae Urine Antig Presumptive negative for pneumococcal pneumonia, suggesting no current or recent pneumococcal infection. Infection due to Strep pneumoniae cannot be ruled out since the antigen present in the sample may be below the detection limit of the test. [facility] Work Phone: Comment on above: This test has not be en evaluated on patients taking antibiotics for greater than 24 hours or on patients who have recently completed an antibiotic regimen. The accuracy of this test has not been proven in young children. .GFRon 05-01-2024 GFR Non- 33 ml/min/1.73sqm Normal [facility] Comment on above: Result Comment: GFR Population [...] 15 mL/min/1.73 square meters Performed By: #### L AC, GFR, APTT, TROPHS, MORPH, DIFF, CMP, MDW, CBC, PRO ####[address] [place], [place] [address] GFR 40 ml/min/1.73sqm Normal [facility] Comment on above: Result Comment: GFR Population [...] 15 mL/min/1.73 square meters Performed By: #### L AC, GFR, APTT, TROPHS, MORPH, DIFF, CMP, MDW, CBC, PRO ####[address] [place], [place] [address] .MDWon 05-01-2024 Monocyte Distribution Width 34.55 High 0.00-20.00 [facility] Comment on above: Result Comment: The predictive value of MDW for identifying sepsis in patients with hematological abnormalities has not been established Performed By: #### L AC, GFR, APTT, TROPHS, MORPH, DIFF, CMP, MDW, CBC, PRO ####[address] [place], [place] [address] .Manual Diffon 05-01-2024 Bands 4.0 % Normal 0.0-5.0 [facility] Comment on above: Performed By: #### L AC, GFR, APTT, TROPHS, MORPH, DIFF, CMP, MDW, CBC, PRO ####[address] [place], [place] [address] Basophil %, Manual 0.0 % Normal 0.0-2.5 [facility] Comment on above: Performed By: #### L AC, GFR, APTT, TROPHS, MORPH, DIFF, CMP, MDW, CBC, PRO ####[address] [place], [place] [address] Basophil, Abs Manual 0.0 10 3/mcL Normal 0.0-0.[address] [facility] Comment on above: Performed By: #### L AC, GFR, APTT, TROPHS, MORPH, DIFF, CMP, MDW, CBC, PRO ####[address] [place], [place] [address] Eosinophil %, Manual 0.0 % Normal 0.0-7.0 [facility] Comment on above: Performed By: #### L AC, GFR, APTT, TROPHS, MORPH, DIFF, CMP, MDW, CBC, PRO ####[address] [place], [place] [address] Eosinophil, Abs Manual 0.0 10 3/mcL Normal 0.0-0.7 [facility] Comment on above: Performed By: #### L AC, GFR, APTT, TROPHS, MORPH, DIFF, CMP, MDW, CBC, PRO ####[address] [place], [place] [address] Lymphocyte %, Manual 80.0 % High 20.0-40.0 [facility] Comment on above: Performed By: #### L AC, GFR, APTT, TROPHS, MORPH, DIFF, CMP, MDW, CBC, PRO ####[address] [place], [place] [address] Lymphocyte, Abs Manual 14.1 10 3/mcL High 0.9-4.3 [facility] Comment on above: Performed By: #### L AC, GFR, APTT, TROPHS, MORPH, DIFF, CMP, MDW, CBC, PRO ####[address] [place], [place] [address] Monocyte %, Manual 1.0 % Low 2.0-13.0 [facility] Comment on above: Performed By: #### L AC, GFR, APTT, TROPHS, MORPH, DIFF, CMP, MDW, CBC, PRO ####[facility] [place], [place] [address] Monocyte, Abs Manual 0.2 10 3/mcL Normal 0.1-1.[address] [facility] Comment on above: Performed By: #### L AC, GFR, APTT, TROPHS, MORPH, DIFF, CMP, MDW, CBC, PRO ####[place] [address] [place], [place] [address] Neutrophil %, Manual 15.0 % Low 50.0-75.0 [facility] Comment on above: Performed By: #### L AC, GFR, APTT, TROPHS, MORPH, DIFF, CMP, MDW, CBC, PRO ####[place] [address] [place], [place] [address] Neutrophil, Abs Manual 3.3 10 3/mcL Normal 2.3-8.1 [facility] Comment on above: Performed By: #### L AC, GFR, APTT, TROPHS, MORPH, DIFF, CMP, MDW, CBC, PRO ####[address] [address] Nucleated RBC 0.0 /100 WBC Normal [facility] Comment on above: Performed By: #### L AC, GFR, APTT, TROPHS, MORPH, DIFF, CMP, MDW, CBC, PRO ####[facility] [place], [place] [address] .Morphon 05-01-2024 Anisocytosis Ql (Bld) 1+ Normal [facility] Comment on above: Performed By: #### L AC, GFR, APTT, TROPHS, MORPH, DIFF, CMP, MDW, CBC, PRO ####[facility] [place] [address] Macrocytosis 1+ Normal [facility] Comment on above: Performed By: #### L AC, GFR, APTT, TROPHS, MORPH, DIFF, CMP, MDW, CBC, PRO ####[address] [place], [place] [address] Ovalocytes 1+ Normal [facility] Comment on above: Performed By: #### L AC, GFR, APTT, TROPHS, MORPH, DIFF, CMP, MDW, CBC, PRO ####[address] [place], [place] [address] Platelet Estimate Normal Normal [facility] Comment on above: Performed By: #### L AC, GFR, APTT, TROPHS, MORPH, DIFF, CMP, MDW, CBC, PRO ####[address] [place], [place] [address] Smudge Cells 2+ Normal [facility] Comment on above: Performed By: #### L AC, GFR, APTT, TROPHS, MORPH, DIFF, CMP, MDW, CBC, PRO ####[address] [place] [address] Tear Cell 1+ Normal [facility] Comment on above: Performed By: #### L AC, GFR, APTT, TROPHS, MORPH, DIFF, CMP, MDW, CBC, PRO ####[address] [place], [place] [address] .Urinalysis Microscopic (AO) on 05-01-2024 UA Bacteria 3+ /hpf Abnormal [facility] Comment on above: Performed By: #### U A, UAMICAO ####[address] [place], [place] [address] UA RBC None Seen Normal None Seen [facility] Comment on above: Performed By: #### U A, UAMICAO ####[address] [place], [place] [address] UA Squam Epithelial None Seen Normal None Seen [facility] Comment on above: Performed By: #### U A, UAMICAO ####[address] [place], [place] [address] UA WBC 10-15 Abnormal None Seen [facility] Comment on above: Performed By: #### U A, UAMICAO ####[address] [address] APTTon 05-01-2024 aPTT Coag (Bld) [Time] 33.0 s Normal 25.0-35.0 [facility] Comment on above: Result Comment: For Heparin anticoagulation therapy, the recommended therapeutic range is: 45.4-75.9 seconds. Patients on heparin therapy may have an extreme result. Performed By: #### L AC, GFR, APTT, TROPHS, MORPH, DIFF, CMP, MDW, CBC, PRO #### [address] [address] CBCon 05-01-2024 Erythrocyte distribution width (RBC) [Ratio] 16.5 % High 11.5-15.5 [facility] Comment on above: Performed By: #### L AC, GFR, APTT, TROPHS, MORPH, DIFF, CMP, MDW, CBC, PRO #### [address] [address] Hematocrit (Bld) [Volume fraction] 28.0 % Low 40.0-52.0 [facility] Comment on above: Performed By: #### L AC, GFR, APTT, TROPHS, MORPH, DIFF, CMP, MDW, CBC, PRO #### [address] [address] Hgb 9.5 G/dL Low 13.0-17.5 [facility] Comment on above: Performed By: #### L AC, GFR, APTT, TROPHS, MORPH, DIFF, CMP, MDW, CBC, PRO #### [address] [address] MCH (RBC) [Entitic mass] 44.5 pg High 27.0-33.0 [facility] Comment on above: Performed By: #### L AC, GFR, APTT, TROPHS, MORPH, DIFF, CMP, MDW, CBC, PRO #### [address] [address] MCHC 34.0 G/dL Normal 32.0-36.0 [facility] Comment on above: Performed By: #### L AC, GFR, APTT, TROPHS, MORPH, DIFF, CMP, MDW, CBC, PRO #### [address] [address] MCV (RBC) [Entitic vol] 131.0 fL High 81.0-100.0 [facility] Comment on above: Performed By: #### L AC, GFR, APTT, TROPHS, MORPH, DIFF, CMP, MDW, CBC, PRO #### [address] [address] Platelet 270 10 3/mcL Normal 150-450 [facility] Comment on above: Performed By: #### L AC, GFR, APTT, TROPHS, MORPH, DIFF, CMP, MDW, CBC, PRO #### [address] [address] Platelet mean volume (Bld) [Entitic vol] 7.6 fL Normal 6.4-10.5 [facility] Comment on above: Performed By: #### L AC, GFR, APTT, TROPHS, MORPH, DIFF, CMP, MDW, CBC, PRO #### [address] [address] RBC 2.14 10 6/mcL Low 4.50-6.00 [facility] Comment on above: Performed By: #### L AC, GFR, APTT, TROPHS, MORPH, DIFF, CMP, MDW, CBC, PRO #### [address] [address] WBC 17.6 10 3/mcL High 4.5-10.8 [facility] Comment on above: Performed By: #### L AC, GFR, APTT, TROPHS, MORPH, DIFF, CMP, MDW, CBC, PRO #### [address] [address] CMPon 05-01-2024 Albumin Level 3.6 G/dL Normal 3.4-4.8 [facility] Comment on above: Performed By: #### L AC, GFR, APTT, TROPHS, MORPH, DIFF, CMP, MDW, CBC, PRO ####[address] [place], [place] [address] Albumin/Globulin [Mass ratio] 1.1 {ratio} Normal 1.1-2.5 [facility] Comment on above: Performed By: #### L AC, GFR, APTT, TROPHS, MORPH, DIFF, CMP, MDW, CBC, PRO ####[address] [place], [place] [address] ALP [Catalytic activity/Vol] 93 U/L Normal 40-135 [facility] Comment on above: Performed By: #### L AC, GFR, APTT, TROPHS, MORPH, DIFF, CMP, MDW, CBC, PRO ####[address] [address] ALT [Catalytic activity/Vol] 13 U/L Low 16-63 [facility] Comment on above: Performed By: #### L AC, GFR, APTT, TROPHS, MORPH, DIFF, CMP, MDW, CBC, PRO ####[address] [place] [id number] AST [Catalytic activity/Vol] 46 U/L High 10-40 [facility] Comment on above: Performed By: #### L AC, GFR, APTT, TROPHS, MORPH, DIFF, CMP, MDW, CBC, PRO ####[address] [place], [place] [address] Bili Total 1.0 mg/dL Normal 0.2-1.0 [facility] Comment on above: Result Comment: Use of this assay is not recommended for patients undergoing treatment with eltrombopag due to the potential for falsely elevated results. Performed By: #### L AC, GFR, APTT, TROPHS, MORPH, DIFF, CMP, MDW, CBC, PRO ####[address] [place] [id number] BUN/Creatinine Ratio 18 ratio Normal 7-27 [facility] Comment on above: Performed By: #### L AC, GFR, APTT, TROPHS, MORPH, DIFF, CMP, MDW, CBC, PRO ####[address] [place], [place] [address] Calcium [Mass/Vol] 9.8 mg/dL Normal 8.4-10.2 [facility] Comment on above: Performed By: #### L AC, GFR, APTT, TROPHS, MORPH, DIFF, CMP, MDW, CBC, PRO ####[facility] [place], [place] [address] Chloride [Moles/Vol] 100 mmol/L Normal 98-107 [facility] Comment on above: Performed By: #### L AC, GFR, APTT, TROPHS, MORPH, DIFF, CMP, MDW, CBC, PRO ####[place] [address] [place] [id number] CO2 [Moles/Vol] 24 mmol/L Normal 23-31 [facility] Comment on above: Performed By: #### L AC, GFR, APTT, TROPHS, MORPH, DIFF, CMP, MDW, CBC, PRO ####[place] [address] [place], [place] [address] Creatinine [Mass/Vol] 2.01 mg/dL High 0.70-1.30 [facility] Comment on above: Result Comment: Test ing performed on Siemens Dimension EXL analyzer using a modified kinetic Becca technique. Performed By: #### L AC, GFR, APTT, TROPHS, MORPH, DIFF, CMP, MDW, CBC, PRO ####[place] [address] [place], [place] [address] Electrolyte Balance 13.0 mEq/L Normal 4.0-15.0 [facility] Comment on above: Performed By: #### L AC, GFR, APTT, TROPHS, MORPH, DIFF, CMP, MDW, CBC, PRO ####[place] [address] [address] [place], [place] [address] Globulin 3.3 G/dL Normal [facility] Comment on above: Performed By: #### L AC, GFR, APTT, TROPHS, MORPH, DIFF, CMP, MDW, CBC, PRO ####[place] [address] [place] [phone] Glucose [Mass/Vol] 134 mg/dL High 83-110 [facility] Comment on above: Performed By: #### L AC, GFR, APTT, TROPHS, MORPH, DIFF, CMP, MDW, CBC, PRO ####[address] [place], [place] [address] Potassium [Moles/Vol] 5.3 mmol/L High 3.5-5.1 [facility] Comment on above: Performed By: #### L AC, GFR, APTT, TROPHS, MORPH, DIFF, CMP, MDW, CBC, PRO ####[address] [place], [place] [address] Sodium [Moles/Vol] 137 mmol/L Normal 136-145 [facility] Comment on above: Performed By: #### L AC, GFR, APTT, TROPHS, MORPH, DIFF, CMP, MDW, CBC, PRO ####[address] [place], [place] [address] Total Protein 6.9 G/dL Normal 6.4-8.2 [facility] Comment on above: Performed By: #### L AC, GFR, APTT, TROPHS, MORPH, DIFF, CMP, MDW, CBC, PRO ####[place] [address] [place], [place] [address] Urea nitrogen [Mass/Vol] 36 mg/dL High 7-18 [facility] Comment on above: Performed By: #### L AC, GFR, APTT, TROPHS, MORPH, DIFF, CMP, MDW, CBC, PRO ####[address] [place], [place] [address] CVFLURVon 05-01-2024 FLU A PCR Negative Normal Negative [facility] Comment on above: Performed By: #### C VFLURV #### [address] [address] FLU B PCR Negative Normal Negative [facility] Comment on above: Performed By: #### C VFLURV #### [address] [address] RSV PCR Negative Normal Negative [facility] Comment on above: Performed By: #### C VFLURV #### [address] [place], [place] [address] SARS-CoV-2 (COVID-19) RNA MYA+probe Ql (Unsp spec) Negative Normal Negative [facility] Comment on above: Result Comment: Resu lts from the Xpert Xpress CoV-2/Flu/RSV plus test should be correlated with the clinical history, epidemiological data, and other data available to the clinical evaluating the patient. Performance of the Xpert Xpress CoV-2/Flu/RSV plus test has only been established in nasopharyngeal swab specimen. Erroneous test results might occur from improper specimen collection, failure to follow the recommended sample collection, handling and storage procedures, technical error, or sample mix-up. False negative results may occur if a virus is present at a level below the analytical limit of detection. Viral nucleic acid may persist in vivo, independent of virus viability. Detection of analyte target(s) does not imply that the corresponding virus(es) are infectious or are the causative agents for clinical symptoms. Recent patient exposure to FluMist or other live attenuated influenza vaccines may cause inaccurate positive results. Performed By: #### C VFLURV #### [place] [address] [place], [place] [address] LABORATORYOrdered By: Marjorie Natarajan on 05-01-2024 Appearance (U) Clear (05/01/24 4:12 PM) Normal Clear AO Auto Urine SS Bacteria LM.HPF (Urine sed) [#/Area] 3 /[HPF] Invalid Interpretation Code AO Auto Urine SS Bilirubin Ql (U) Negative (05/01/24 4:12 PM) Normal Negative AO Auto Urine SS Color (U) Yellow (05/01/24 4:12 PM) Normal AO Auto Urine SS Glucose Test strip (U) [Mass/Vol] Negative Normal Negative AO Auto Urine SS Hemoglobin Auto test strip (U) [Mass/Vol] Negative (05/01/24 4:12 PM) Normal Negative AO Auto Urine SS Ketones Ql (U) Negative Normal Negative AO Auto Urine SS UA Leuk Est Negative (05/01/24 4:12 PM) Normal Negative AO Auto Urine SS UA Nitrite Positive *ABN* (05/01/24 4:12 PM) Invalid Interpretation Code Negative AO Auto Urine SS UA pH 5.5 (05/01/24 4:12 PM) Normal 5.0 - 8.0 AO Auto Urine SS UA Protein Trace mg/dL Normal Negative AO Auto Urine SS UA RBC None Seen /HPF Normal None Seen AO Auto Urine SS UA Spec Grav 1.015 (05/01/24 4:12 PM) Normal 1.015-1.025 AO Auto Urine SS UA Specimen Type Clean Catch (05/01/24 4:12 PM) Normal AO Auto Urine SS UA Squam Epithelial None Seen /HPF Normal None Seen A O Auto Urine SS UA Urobilinogen 0.2 E.U./dL Normal 0.2-1.0 AO Auto Urine SS WBC LM.HPF (Urine sed) [#/Area] 10-15 /HPF Invalid Interpretation Code None Seen AO Auto Urine SS FLUAV RNA MYA+probe Ql (Resp) Negative (05/01/24 2:01 PM) Normal Negative AO Auto Urine SS FLUBV RNA MYA+probe Ql (Resp) Negative (05/01/24 2:01 PM) Normal Negative AO Auto Urine SS RSV RNA MYA+probe Ql (Resp) Negative (05/01/24 2:01 PM) Normal Negative AO Auto Urine SS SARS-CoV-2 (COVID-19) RNA MYA+probe Ql (Resp) Negative 7 (05/01/24 2:01 PM) Normal Negative AO Auto Urine SS Comment on above: Interpretive Data: R esults from the Xpert Xpress CoV-2/Flu/RSV plus test should be correlated with the clinical history, epidemiological data, and other data available to the clinical evaluating the patient. Performance of the Xpert Xpress CoV-2/Flu/RSV plus test has only been established in nasopharyngeal swab specimen. Erroneous test results might occur from improper specimen collection, failure to follow the recommended sample collection, handling and storage procedures, technical error, or sample mix-up. False negative results may occur if a virus is present at a level below the analytical limit of detection. Viral nucleic acid may persist in vivo, independent of virus viability. Detection of analyte target(s) does not imply that the corresponding virus(es) are infectious or are the causative agents for clinical symptoms. Recent patient exposure to FluMist or other live attenuated influenza vaccines may cause inaccurate positive results. LABORATORYOrdered By: SYSTEM SYSTEM on 05-01-2024 Albumin BCP dye [Mass/Vol] 3.6 G/dL Normal 3.4 - 4.8 G/dL AO ADM SS Albumin/Globulin [Mass ratio] 1.1 {ratio} Normal 1.1 - 2.5 ratio AO ADM SS ALP [Catalytic activity/Vol] 93 U/L Normal 40 - 135 U/L AO ADM SS ALT With P-5'-P [Catalytic activity/Vol] 13 U/L Low 16 - 63 U/L AO ADM SS Anisocytosis Ql (Bld) 1+ *NA* (05/01/24 2:01 PM) Invalid Interpretation Code AO Workflow SS aPTT Coag (PPP) [Time] 33.0 s Normal 25.0 - 35.0 seconds AO HemoHub SS Comment on above: Interpretive Data: F or Heparin anticoagulation therapy, the recommended therapeutic range is: 45.4-75.9 seconds. Patients on heparin therapy may have an extreme result. AST With P-5'-P [Catalytic activity/Vol] 46 U/L High 10 - 40 U/L AO ADM SS Band form neutrophils/100 WBC (Bld) 4.0 % Normal 0.0 - 5.0 % AO Workflow SS Basophil %, Manual 0.0 % Normal 0.0 - 2.5 % AO Wo rkflow SS Basophils (Bld) [#/Vol] 0.0 103/mcL Normal 0.0 - 0.2 10^3/mcL AO Workflow SS Bilirubin [Mass/Vol] 1.0 mg/dL Normal 0.2 - 1 .0 mg/dL AO ADM SS Comment on above: Interpretive Data: U se of this assay is not recommended for patients undergoing treatment with eltrombopag due to the potential for falsely elevated results. Calcium [Mass/Vol] 9.8 mg/dL Normal 8.4 - 10. 2 mg/dL AO ADM SS Chloride [Moles/Vol] 100 mmol/L Normal 98 - 10 7 mmol/L AO ADM SS CO2 [Moles/Vol] 24 mmol/L Normal 23 - 31 mmol/L AO ADM SS Creatinine [Mass/Vol] 2.01 mg/dL High 0.70 - 1.30 mg/dL AO ADM SS Comment on above: Interpretive Data: T esting performed on Siemens Dimension EXL analyzer using a modified kinetic Becca technique. Dacrocytes LM Ql (Bld) 1+ *NA* (05/01/24 2:01 PM) Invalid Interpretation Code AO Workflow SS Electrolyte Balance 13.0 mEq/L Normal 4.0 - 15 .0 mEq/L AO ADM SS Eosinophil %, Manual 0.0 % Normal 0.0 - 7.0 % AO Workflow SS Eosinophils (Bld) [#/Vol] 0.0 103/mcL Normal 0.0 - 0.7 10^3/mcL AO Workflow SS Erythrocyte distribution width (RBC) [Ratio] 16.5 % High 11.5 - 15.5 % AO Workflow SS GFR/1.73 sq M.predicted among blacks MDRD (S/P/Bld) [Vol rate/Area] 40 ml/min/1.73sqm Invalid Interpretation Code AO Chemistry S Comment on above: Interpretive Data: GFR Population mean for , Non- Americans Ages 20-29 = 116 mL/min/1.73 sq.m. Ages 30-39 = 107 mL/min/1.73 sq.m. Ages 40-49 = 99 mL/min/1.73 sq.m. Ages 50-59 = 93 mL/min/1.73 sq.m. Ages 60-69 = 85 mL/min/1.73 sq.m. Ages 70+ = 75 mL/min/1.73 sq.m. Chronic Kidney Disease: Less than 60 mL/min/1.73 square meters End Stage Renal Disease: Less than 15 mL/min/1.73 square meters GFR/1.73 sq M.predicted among non-blacks MDRD (S/P/Bld) [Vol rate/Area] 33 ml/min/1.73sqm Invalid Interpretation Code AO Chemistry S Comment on above: Interpretive Data: GFR Population mean for , Non- Americans Ages 20-29 = 116 mL/min/1.73 sq.m. Ages 30-39 = 107 mL/min/1.73 sq.m. Ages 40-49 = 99 mL/min/1.73 sq.m. Ages 50-59 = 93 mL/min/1.73 sq.m. Ages 60-69 = 85 mL/min/1.73 sq.m. Ages 70+ = 75 mL/min/1.73 sq.m. Chronic Kidney Disease: Less than 60 mL/min/1.73 square meters End Stage Renal Disease: Less than 15 mL/min/1.73 square meters Globulin 3.3 G/dL Invalid Interpretation Code AO ADM SS Glucose [Mass/Vol] 134 mg/dL High 83 - 110 mg/dL AO ADM SS Hematocrit (Bld) [Volume fraction] 28.0 % Low 40.0 - 52.0 % AO Workflow SS Hemoglobin (Bld) [Mass/Vol] 9.5 G/dL Low 13.0 - 17.5 G/dL AO Workflow SS INR Coag (PPP) [Relative time] 1.5 {INR} Invalid Interpretation Code AO HemoHub SS Comment on above: Interpretive Data: [employer] (CHEST, 1991, 102:312S-25S) recommended therapeutic range for oral anticoagulant therapy is: LOW RISK: Prophylaxis of venous thrombosis INR: 2.0-3.0 Treatment of pulmonary embolism 2.0-3.0 Prevention of systemic embolism 2.0-3.0 HIGH RISK: Mechanical prosthetic valves 2.5-3.5 Lactate [Moles/Vol] 1.4 mmol/L Normal 0.4 - 2. 0 mmol/L AO ADM SS Lymphocytes (Bld) [#/Vol] 14.1 103/mcL High 0.9 - 4.3 10^3/mcL AO Workflow SS Lymphocytes/100 WBC (Bld) 80.0 % High 20.0 - 40.0 % AO Workflow SS Macrocytes Ql (Bld) 1+ *NA* (05/01/24 2:01 PM) Invalid Interpretation Code AO Workflow SS MCH (RBC) [Entitic mass] 44.5 pg High 27.0 - 33.0 pg AO Workflow SS MCHC 34.0 G/dL Normal 32.0 - 36.0 G/dL AO Workflow SS MCV (RBC) [Entitic vol] 131.0 fL High 81.0 - 100.0 fL AO Workflow SS Monocyte distribution width Auto (Bld) [Entitic vol] 34.55 1 High 0.00 - 20.00 AO Workflow SS Comment on above: Result Comment: The predictive value of MDW for identifying sepsis in patients with hematological abnormalities has not been established Monocytes (Bld) [#/Vol] 0.2 103/mcL Normal 0.1 - 1.4 10^3/mcL AO Workflow SS Monocytes/100 WBC (Bld) 1.0 % Low 2.0 - 13.0 % AO Workflow SS Neutrophils (Bld) [#/Vol] 3.3 103/mcL Normal 2.3 - 8.1 10^3/mcL AO Workflow SS Neutrophils/100 WBC (Bld) 15.0 % Low 50.0 - 75.0 % AO Workflow SS Nucleated RBC 0.0 /100 WBC Invalid Interpretation Code AO Workflow SS Ovalocytes LM Ql (Bld) 1+ *NA* (05/01/24 2:01 PM) Invalid Interpretation Code AO Workflow SS Platelet mean volume (Bld) [Entitic vol] 7.6 fL Normal 6.4 - 10.5 fL AO Workflow SS Platelets (Bld) [#/Vol] 270 103/mcL Normal 150 - 450 10^3/mcL AO Workflow SS Platelets LM Ql (Bld) Normal *NA* (05/01/24 2:01 PM) Invalid Interpretation Code AO Workflow SS Potassium [Moles/Vol] 5.3 mmol/L High 3.5 - 5.1 mmol/L AO ADM SS Protein [Mass/Vol] 6.9 G/dL Normal 6.4 - 8.2 G/dL AO ADM SS PT Coag (PPP) [Time] 17.5 s High 9.0 - 1 4.4 seconds AO HemoHub SS RBC (Bld) [#/Vol] 2.14 106/mcL Low 4.50 - 6.0 0 10^6/mcL AO Workflow SS Smudge cells LM Ql (Bld) 2+ *NA* (05/01/24 2:01 PM) Invalid Interpretation Code AO Workflow SS Sodium [Moles/Vol] 137 mmol/L Normal 136 - 145 mmol/L AO ADM SS Troponin I.cardiac DL <= 0.01 ng/mL [Mass/Vol] 9 ng/L Normal 0 - 76 ng/L AO ADM SS Comment on above: Interpretive Data: H igh Sensitive Troponin I Reference Ranges: Female: 0-51 ng/L Male: 0-76 ng/L Testing performed on [employer] using a homogeneous sandwich chemiluminescent immunoassay based on Zerve technology. Urea nitrogen [Mass/Vol] 36 mg/dL High 7 - 18 mg/dL AO ADM SS Urea nitrogen/Creatinine [Mass ratio] 18 ratio Normal 7 - 27 ratio AO ADM SS WBC (Bld) [#/Vol] 17.6 103/mcL High 4.5 - 10.8 10^3/mcL AO Workflow SS LACon 05-01-2024 Lactic Acid Lvl 1.4 mmol/L Normal 0.4-2.0 [facility] Comment on above: Performed By: #### L AC, GFR, APTT, TROPHS, MORPH, DIFF, CMP, MDW, CBC, PRO #### [address] [place] [place], [place] [address] No Panel Informationon 05-01 Microscopic examination of blood, culture Culture has been received in lab and is no growth to date. Routine cultures are held for 5 days. [facility] Work Phone: PROon 05-01-2024 PT Coag (PPP) [Time] 17.5 s High 9.0-14.4 [facility] Comment on above: Performed By: #### L AC, GFR, APTT, TROPHS, MORPH, DIFF, CMP, MDW, CBC, PRO #### [address] [address] PT International Ratio 1.5 Normal [facility] Comment on above: Result Comment: [employer] (CHEST, 1992, 102:312S-25S) recommended therapeutic range for oral anticoagulant therapy is: LOW RISK: Prophylaxis of venous thrombosis INR: 2.0-3.0 Treatment of pulmonary embolism 2.0-3.0 Prevention of systemic embolism 2.0-3.0 HIGH RISK: Mechanical prosthetic valves 2.5-3.5 Performed By: #### L AC, GFR, APTT, TROPHS, MORPH, DIFF, CMP, MDW, CBC, PRO #### [place] [address] [place], [place] [address] TROPHSon 05-01-2024 High Sensitivity Troponin I 9 ng/L Normal 0-76 [facility] Comment on above: Result Comment: High Sensitive Troponin I Reference Ranges: Female: 0-51 ng/L Male: 0-76 ng/L Testing performed on Dimension EXL using a homogeneous sandwich chemiluminescent immunoassay based on Zerve technology. Performed By: #### L AC, GFR, APTT, TROPHS, MORPH, DIFF, CMP, MDW, CBC, PRO #### [address] [address] UAon 05-01-2024 Color (U) Yellow Normal [facility] Comment on above: Performed By: #### U A, UAMICAO ####[address] [place] [address] Glucose (U) [Mass/Vol] Negative Normal Negative [facility] Comment on above: Performed By: #### U A, UAMICAO ####[address] [address] [place] [address] Ketones Ql (U) Negative Normal Negative [facility] Comment on above: Performed By: #### U A, UAMICAO ####[place] [address] [place] [address] UA Appear Clear Normal Clear [facility] Comment on above: Performed By: #### U A, UAMICAO ####[address] [address] UA Blood Negative Normal Negative [facility] Comment on above: Performed By: #### U A, UAMICAO ####[address] [address] UA Leuk Est Negative Normal Negative [facility] Comment on above: Performed By: #### U A, UAMICAO ####[address] [address] UA Nitrite Positive Abnormal Negative [facility] Comment on above: Performed By: #### U A, UAMICAO ####[address] [address] UA pH 5.5 Normal 5.0 - 8.0 [facility] Comment on above: Performed By: #### U A, UAMICAO ####[address] [place] [address] UA Protein Trace Normal Negative [facility] Comment on above: Performed By: #### U A, UAMICAO ####[address] [address] [place] [address] UA Spec Grav 1.015 Normal 1.015-1.025 [facility] Comment on above: Performed By: #### U A, UAMICAO ####[place] [address] [place], [place] [address] UA Specimen Type Clean Catch Normal [facility] Comment on above: Performed By: #### U A, UAMICAO ####[place] [address] [place], [place] [address] UA Urobilinogen 0.2 E.U./dL Normal 0.2-1.0 [facility] Comment on above: Performed By: #### U A, UAMICAO ####[place] [address] [place], [place] [address] Urobilinogen (U) [Mass/Vol] Negative Normal Negative [facility] Comment on above: Performed By: #### U Mary UAMICAO ####[place] [address] [place], [place] [address] XR CHEST 1 VIEWon 05-01-2024 XR CHEST 1 VIEW ORIGINAL EXAMINATION: ONE XRAY VIEW OF THE CHEST05/01/2024 2:57 pm COMPARISON: Chest CT 05/05/2023, no comparison chest radiograph HISTORY: ORDERING SYSTEM PROVIDED HISTORY: Reason for Exam: fever, pain or tachypnea, FINDINGS: Heart size and mediastinal contours are probably normal accounting for projection and rotation. There is no vascular congestion, pleural effusion or pneumothorax. Some deformities of the right lower ribs appear to be chronic. There is some asymmetric airspace type of opacity in the right mid and lower lung that is concerning for pneumonia or other pathology. The left lung seems to be clear. IMPRESSION: Some asymmetric right mid and lower lung infiltrates will require further evaluation. Previous CT also showed a right mid lung mass. If there is no interval surgery, CT of the chest may be appropriate to evaluate for that mass also. Interpreted by: Parris Mae MD Preliminary Report By: Parris Mae MD Electronically signed By Parris Mae MD Dictated Date: 05/01/2024 3:05:26 PM Prelim Date: 05/01/2024 3:07:49 PM Sign Date: 05/01/2024 3:07:49 PM Ordering Provider: NATASHA BERRY Normal [facility] Discharge Instructionon 04-14 Discharge Instruction Normal [facility] MR/POSTOP.ANEon 04-27-2024 MR/POSTOP.ANE Normal [facility] MR/NVAFARVI2xa 04-27-2024 MR/POSTOPAN2 Normal [facility] Operative Reporton Operative Report Normal [facility] MR/PAT.ANEon 04-23-2024 MR/PAT.ANE Normal [facility] CBC W/Diff, Automatedon PATH REV Reviewed Normal [facility] Comment on above: Result Comment: Abso lute lymphocytosis suggestive of low grade lympho-proliferative disorder.Clinical correlation is necessary.Macrocytic anemia.Prashanth Machado M.D. 04/19/24 AMENDED REPORT 04/19/24 1320 PATH REV previously reported as: August Performed By: #### L 506.1000, L501.9520, L100.0100, L500.4050 ####[facility] [address] [place], [address] Comprehensive Metabolic Prof ilon 04-16-2024 Albumin [Mass/Vol] 3.8 g/dL Normal 3.2-5.0 [facility] Comment on above: Performed By: #### L 506.1000, L501.9520, L100.0100, L500.4050 ####[facility] [address] [place], [address] Albumin/Globulin [Mass ratio] 1.2 {ratio} Normal 0.9-2.4 [facility] Comment on above: Performed By: #### L 506.1000, L501.9520, L100.0100, L500.4050 ####[facility] [address] [place], [address] ALK P 93 U/L Normal 45-117 [facility] Comment on above: Performed By: #### L 506.1000, L501.9520, L100.0100, L500.4050 ####[facility] [address] [place], [address] ALT [Catalytic activity/Vol] 14 U/L Low 16-61 [facility] Comment on above: Performed By: #### L 506.1000, L501.9520, L100.0100, L500.4050 ####[facility] [address] [place], [address] AST [Catalytic activity/Vol] 7 U/L Low 15-37 [facility] Comment on above: Performed By: #### L 506.1000, L501.9520, L100.0100, L500.4050 ####[facility] [address] [place], [address] Bilirubin [Mass/Vol] 0.40 mg/dL Normal 0.20-1.00 [facility] Comment on above: Result Comment: For patients on eltrombopag therapy, use of Dimension Lamar TBIL is not recommended. Performed By: #### L 506.1000, L501.9520, L100.0100, L500.4050 ####[facility] [address] [place], [address] BUN/CRE 22.1 RATIO High 10-20 [facility] Comment on above: Performed By: #### L 506.1000, L501.9520, L100.0100, L500.4050 ####[facility] [address] [place], [address] CA,Total 9.2 mg/dL Normal 8.5-10.1 [facility] Comment on above: Performed By: #### L 506.1000, L501.9520, L100.0100, L500.4050 ####[facility] [address] [place], [address] Chloride [Moles/Vol] 109 mmol/L High 98-107 [facility] Comment on above: Performed By: #### L 506.1000, L501.9520, L100.0100, L500.4050 ####[facility] [address] [place], [address] CO2 [Moles/Vol] 23.0 mmol/L Normal 21.0-32.0 [facility] Comment on above: Performed By: #### L 506.1000, L501.9520, L100.0100, L500.4050 ####[facility] [address] [place], [address] Creatinine [Mass/Vol] 1.99 mg/dL High 0.70-1.30 [facility] Comment on above: Result Comment: The validity of the calculated GFR GFRAA in patients over70 years has not been determined. Clinical correlation isessential. Performed By: #### L 506.1000, L501.9520, L100.0100, L500.4050 ####[facility] [address] [place], [address] EST GFR - AA 43 mL/min Low >60 [facility] Comment on above: Result Comment: Afri can Italian GFR Calc Performed By: #### L 506.1000, L501.9520, L100.0100, L500.4050 ####[facility] [address] [place], [address] GAP 7 Normal 5-15 [facility] Comment on above: Performed By: #### L 506.1000, L501.9520, L100.0100, L500.4050 ####[facility] [address] [place], [address] GFR/1.73 sq M.predicted among non-blacks MDRD (S/P/Bld) [Vol rate/Area] 35 mL/min/{1.73_m2} Low >60 [facility] Comment on above: Result Comment: Non- GFR Calc Performed By: #### L 506.1000, L501.9520, L100.0100, L500.4050 ####[facility] [address] [place], [address] Globulin (S) [Mass/Vol] 3.1 g/dL Normal 2.2-4.2 [facility] Comment on above: Performed By: #### L 506.1000, L501.9520, L100.0100, L500.4050 ####[facility] [address] [place], [address] Glucose [Mass/Vol] 119 mg/dL High 74-106 [facility] Comment on above: Result Comment: Fast ing Glucose result from 100 to 125 mg/dLsuggests IMPAIRED HOMEOSTASIS per A.D.A. criteria. Performed By: #### L 506.1000, L501.9520, L100.0100, L500.4050 ####[facility] [address] [place], [address] Potassium [Moles/Vol] 4.6 mmol/L Normal 3.5-5.1 [facility] Comment on above: Performed By: #### L 506.1000, L501.9520, L100.0100, L500.4050 ####[facility] [address] [place], [address] Sodium [Moles/Vol] 139 mmol/L Normal 136-145 [facility] Comment on above: Performed By: #### L 506.1000, L501.9520, L100.0100, L500.4050 ####[facility] [address] [place], [address] T PROT 6.9 g/dL Normal 6.4-8.2 [facility] Comment on above: Performed By: #### L 506.1000, L501.9520, L100.0100, L500.4050 ####[facility] [address] [place], [address] Urea nitrogen [Mass/Vol] 44 mg/dL High 7-18 [facility] Comment on above: Performed By: #### L 506.1000, L501.9520, L100.0100, L500.4050 ####[facility] [address], [address] MR/BMS.BPon 04-16-2024 MR/BMS.BP Normal [facility] Thyroid Stim Hormone (TSH)on 04-16-2024 TSH 0.799 uIU/mL Normal 0.358-3.740 [facility] Comment on above: Performed By: #### L 506.1000, L501.9520, L100.0100, L500.4050 ####[facility] [address] [place], [address] Vitamin D,25 Hydroxyon 04-16 Vitamin D 25-OH 41.2 ng/mL Normal [facility] Comment on above: Result Comment: Mila min D 25(OH) Status Range Deficiency <20 ng/mL (50nmol/L) Insufficiency 20 - 30 ng/mL (50 - 75 nmol/L) Sufficiency 30 - 100 ng/mL (75 - 250 nmol/L) Toxicity >100 ng/mL (>250 nmol/L) Performed By: #### L 506.1000, L501.9520, L100.0100, L500.4050 ####[facility] [address] [place], [address] Re-Evaluation - PT (1)on Re-Evaluation - PT (1) Normal [facility] Upper Ext No Joint W/WO Cont on 03-26-2024 Upper Ext No Joint W/WO Cont Normal [facility] CBC W/Diff, Automatedon 12-0 PATH REV Reviewed Normal [facility] Comment on above: Result Comment: LYMP HOCYTOSIS SUGGESTIVE OF PROLIFERATIVE PROCESSMacrocytic anemia.Clinical correlation necessary.Daniele Sandy D.O. 03/22/24 AMENDED REPORT 03/22/24 1438 PATH REV previously reported as: August kathe Performed By: #### L 100.0100 ####[facility] [address] [place], [address] Culture, Blood (WB)on 2023 CUB Blood cultures x2, f rom two different sites No growth in 5 days. Normal [facility] Comment on above: Performed By: #### M 200.1000 ####[facility] [address] [place], [address] Basic Metabolic Profile (BMP )on 03-20-2024 BUN/CRE 11.8 RATIO Normal 10-20 [facility] Comment on above: Performed By: #### L 500.2500 ####[facility] [address] [place], [address] CA,Total 9.4 mg/dL Normal 8.5-10.1 [facility] Comment on above: Performed By: #### L 500.2500 ####[facility] [address] [place], [address] Chloride [Moles/Vol] 112 mmol/L High 98-107 [facility] Comment on above: Performed By: #### L 500.2500 ####[facility] [address] [place], [address] CO2 [Moles/Vol] 23.0 mmol/L Normal 21.0-32.0 [facility] Comment on above: Performed By: #### L 500.2500 ####[facility] [address] [place], [address] Creatinine [Mass/Vol] 1.70 mg/dL High 0.70-1.30 [facility] Comment on above: Result Comment: The validity of the calculated GFR GFRAA in patients over70 years has not been determined. Clinical correlation isessential. Performed By: #### L 500.2500 ####[facility] [address] [place], [address] ECRCL 41.75 ml/min Normal [facility] Comment on above: Performed By: #### L 500.2500 ####[facility] [address] [place], [address] EST GFR - AA 51 mL/min Low >60 [facility] Comment on above: Result Comment: Afri can Italian GFR Calc Performed By: #### L 500.2500 ####[facility] [address] [place], [address] GAP 7 Normal 5-15 [facility] Comment on above: Performed By: #### L 500.2500 ####[facility] [address] [place], [address] GFR/1.73 sq M.predicted among non-blacks MDRD (S/P/Bld) [Vol rate/Area] 43 mL/min/{1.73_m2} Low >60 [facility] Comment on above: Result Comment: Non- GFR Calc Performed By: #### L 500.2500 ####[facility] [address] [place], [address] Glucose [Mass/Vol] 95 mg/dL Normal 74-106 [facility] Comment on above: Performed By: #### L 500.2500 ####[facility] [address] [place], [address] Potassium [Moles/Vol] 4.2 mmol/L Normal 3.5-5.1 [facility] Comment on above: Performed By: #### L 500.2500 ####[facility] [address] [place], [address] Sodium [Moles/Vol] 142 mmol/L Normal 136-145 [facility] Comment on above: Performed By: #### L 500.2500 ####[facility] [address] [place], [address] Urea nitrogen [Mass/Vol] 20 mg/dL High 7-18 [facility] Comment on above: Performed By: #### L 500.2500 ####[facility] [address] [place], [address] Discharge Instructionon Discharge Instruction Normal [facility] CBC W/Diff, Automatedon PATH REV Reviewed Normal [facility] Comment on above: Result Comment: Neut rophilic leukocytosis.Macrocytic anemia.Clinical correlation suggested.Daniele Sandy D.O. 03/19/24 AMENDED REPORT 03/19/24 1419 PATH REV previously reported as: August foll Performed By: #### L 100.0100 ####[facility] [address] [place], [address] PATH REV Reviewed Normal [facility] Comment on above: Result Comment: LYMP HOCYTOSIS CONSISTENT WITH CLLMacrocytic anemia.Clinical correlation necessary.Daniele Sandy D.O. 03/19/24 AMENDED REPORT 03/19/24 1414 PATH REV previously reported as: August foll Performed By: #### L 100.0100, L500.4050 ####[facility] [address] [place], [address] Respiratory Cultureon 2023 RESPC Normal [facility] Comment on above: Performed By: #### M 100.678, M100.2400, M100.2000 ####[facility] [address] [place], [address] Urine Cultureon 03-19-2024 URC Normal [facility] Comment on above: Performed By: #### L 400.0001, M100.2200 ####[facility] [address] [place], [address] CBC W/Diff, Automatedon 0 PATH REV Reviewed Normal [facility] Comment on above: Result Comment: ABSO LUTE LYMPHOCYTOSIS SUGGESTIVE OF PROLIFERATIVE DISORDERMacrocytic anemia.Clinical correlation necessary.Daniele Sandy D.O. 03/18/24 AMENDED REPORT 03/18/24 1441 PATH REV previously reported as: August Performed By: #### L 300.4310, L500.4050, L503.6005, L100.0100, L300.3900, L501.4020 ####[facility] [address] [place], [address] Comprehensive Metabolic Prof ilon 03-18-2024 Albumin [Mass/Vol] 2.7 g/dL Low 3.2-5.0 [facility] Comment on above: Performed By: #### L 100.0100, L500.4050 ####[facility] [address] [place], [address] Albumin/Globulin [Mass ratio] 1.0 {ratio} Normal 0.9-2.4 [facility] Comment on above: Performed By: #### L 100.0100, L500.4050 ####[facility] [address] [place], [address] ALK P 66 U/L Normal 45-117 [facility] Comment on above: Performed By: #### L 100.0100, L500.4050 ####[facility] [address] [place], [address] ALT [Catalytic activity/Vol] 8 U/L Low 16-61 [facility] Comment on above: Performed By: #### L 100.0100, L500.4050 ####[facility] [address] [place], [address] AST [Catalytic activity/Vol] 8 U/L Low 15-37 [facility] Comment on above: Performed By: #### L 100.0100, L500.4050 ####[facility] [address] [place], [address] Bilirubin [Mass/Vol] 0.40 mg/dL Normal 0.20-1.00 [facility] Comment on above: Result Comment: For patients on eltrombopag therapy, use of Dimension Lamar TBIL is not recommended. Performed By: #### L 100.0100, L500.4050 ####[facility] [address] [place], [address] BUN/CRE 14.5 RATIO Normal 10-20 [facility] Comment on above: Performed By: #### L 100.0100, L500.4050 ####[facility] [address] [place], [address] CA,Total 8.5 mg/dL Normal 8.5-10.1 [facility] Comment on above: Performed By: #### L 100.0100, L500.4050 ####[facility] [address] [place], [address] Chloride [Moles/Vol] 114 mmol/L High 98-107 [facility] Comment on above: Performed By: #### L 100.0100, L500.4050 ####[facility] [address] [place], [address] CO2 [Moles/Vol] 23.0 mmol/L Normal 21.0-32.0 [facility] Comment on above: Performed By: #### L 100.0100, L500.4050 ####[facility] [address] [place], [address] Creatinine [Mass/Vol] 1.52 mg/dL High 0.70-1.30 [facility] Comment on above: Result Comment: The validity of the calculated GFR GFRAA in patients over70 years has not been determined. Clinical correlation isessential. Performed By: #### L 100.0100, L500.4050 ####[facility] [address] [place], [address] ECRCL 46.69 ml/min Normal [facility] Comment on above: Performed By: #### L 100.0100, L500.4050 ####[facility] [address] [place], [address] EST GFR - AA 59 mL/min Low >60 [facility] Comment on above: Result Comment: Afri can Italian GFR Calc Performed By: #### L 100.0100, L500.4050 ####[facility] [address] [place], [address] GAP 6 Normal 5-15 [facility] Comment on above: Performed By: #### L 100.0100, L500.4050 ####[facility] [address] [place], [address] GFR/1.73 sq M.predicted among non-blacks MDRD (S/P/Bld) [Vol rate/Area] 48 mL/min/{1.73_m2} Low >60 [facility] Comment on above: Result Comment: Non- GFR Calc Performed By: #### L 100.0100, L500.4050 ####[facility] [address] [place], [address] Globulin (S) [Mass/Vol] 2.7 g/dL Normal 2.2-4.2 [facility] Comment on above: Performed By: #### L 100.0100, L500.4050 ####[facility] [address] [place], [address] Glucose [Mass/Vol] 105 mg/dL Normal 74-106 [facility] Comment on above: Result Comment: Fast ing Glucose result from 100 to 125 mg/dLsuggests IMPAIRED HOMEOSTASIS per A.D.A. criteria. Performed By: #### L 100.0100, L500.4050 ####[facility] [address] [place], [address] Potassium [Moles/Vol] 3.9 mmol/L Normal 3.5-5.1 [facility] Comment on above: Performed By: #### L 100.0100, L500.4050 ####[facility] [address] [place], [address] Sodium [Moles/Vol] 143 mmol/L Normal 136-145 [facility] Comment on above: Performed By: #### L 100.0100, L500.4050 ####[facility] [address] [place], [address] T PROT 5.4 g/dL Low 6.4-8.2 [facility] Comment on above: Performed By: #### L 100.0100, L500.4050 ####[facility] [address] [place], [address] Urea nitrogen [Mass/Vol] 22 mg/dL High 7-18 [facility] Comment on above: Performed By: #### L 100.0100, L500.4050 ####[facility] [address] [place], [address] Consultation - Infectious Dx on 03-18-2024 Consultation - Infectious Dx Normal [facility] Consultation - Intensiviston 03-18-2024 Consultation - Graphic Design Specialist Normal [facility] RESPIRATORY PANEL MOLECULARo n 03-18-2024 RP PANEL Normal [facility] Comment on above: Performed By: #### M 100.638 ####[facility] [address] [place], [address] 12 Lead EKGon 03-17-2024 12 Lead EKG Normal [facility] CPK Total, Creatine Kinaseon 03-17-2024 CPK TOTAL 18 U/L Low 39-308 [facility] Comment on above: Performed By: #### L 501.3620, L500.4050 ####[facility] [address] [place], [address] Chest PA and Lateralon 03-17 Chest PA and Lateral Normal [facility] Comprehensive Metabolic Prof ilon 12-04-2024 Albumin [Mass/Vol] 3.2 g/dL Normal 3.2-5.0 [facility] Comment on above: Performed By: #### L 501.3620, L500.4050 ####[facility] [address] [place], [address] Albumin/Globulin [Mass ratio] 1.1 {ratio} Normal 0.9-2.4 [facility] Comment on above: Performed By: #### L 501.3620, L500.4050 ####[facility] [address] [place], [address] ALK P 77 U/L Normal 45-117 [facility] Comment on above: Performed By: #### L 501.3620, L500.4050 ####[facility] [address] [place], [address] ALT [Catalytic activity/Vol] 8 U/L Low 16-61 [facility] Comment on above: Performed By: #### L 501.3620, L500.4050 ####[facility] [address] [place], [address] AST [Catalytic activity/Vol] 9 U/L Low 15-37 [facility] Comment on above: Performed By: #### L 501.3620, L500.4050 ####[facility] [address] [place], [address] Bilirubin [Mass/Vol] 0.80 mg/dL Normal 0.20-1.00 [facility] Comment on above: Result Comment: For patients on eltrombopag therapy, use of Dimension Lamar TBIL is not recommended. Performed By: #### L 501.3620, L500.4050 ####[facility] [address] [place], [address] BUN/CRE 14.6 RATIO Normal 10-20 [facility] Comment on above: Performed By: #### L 501.3620, L500.4050 ####[facility] [address] [place], [address] CA,Total 9.0 mg/dL Normal 8.5-10.1 [facility] Comment on above: Performed By: #### L 501.3620, L500.4050 ####[facility] [address] [place], [address] Chloride [Moles/Vol] 107 mmol/L Normal 98-107 [facility] Comment on above: Performed By: #### L 501.3620, L500.4050 ####[facility] [address] [place], [address] CO2 [Moles/Vol] 24.0 mmol/L Normal 21.0-32.0 [facility] Comment on above: Performed By: #### L 501.3620, L500.4050 ####[facility] [address] [place], [address] Creatinine [Mass/Vol] 1.85 mg/dL High 0.70-1.30 [facility] Comment on above: Result Comment: The validity of the calculated GFR GFRAA in patients over70 years has not been determined. Clinical correlation isessential. Performed By: #### L 501.3620, L500.4050 ####[facility] [address] [place], [address] ECRCL 40.48 ml/min Normal [facility] Comment on above: Performed By: #### L 501.3620, L500.4050 ####[facility] [address] [place], [address] EST GFR - AA 47 mL/min Low >60 [facility] Comment on above: Result Comment: Afri can Italian GFR Calc Performed By: #### L 501.3620, L500.4050 ####[facility] [address] [place], [address] GAP 7 Normal 5-15 [facility] Comment on above: Performed By: #### L 501.3620, L500.4050 ####[facility] [address] [place], [address] GFR/1.73 sq M.predicted among non-blacks MDRD (S/P/Bld) [Vol rate/Area] 39 mL/min/{1.73_m2} Low >60 [facility] Comment on above: Result Comment: Non- GFR Calc Performed By: #### L 501.3620, L500.4050 ####[facility] [address] [place], [address] Globulin (S) [Mass/Vol] 3.0 g/dL Normal 2.2-4.2 [facility] Comment on above: Performed By: #### L 501.3620, L500.4050 ####[facility] [address] [place], [address] Glucose [Mass/Vol] 147 mg/dL High 74-106 [facility] Comment on above: Result Comment: Fast ing Glucose result greater than or equal to 126 mg/dLsuggests DIABETES MELLITUS per A.D.A. criteria. Performed By: #### L 501.3620, L500.4050 ####[facility] [address] [place], [address] Potassium [Moles/Vol] 4.0 mmol/L Normal 3.5-5.1 [facility] Comment on above: Performed By: #### L 501.3620, L500.4050 ####[facility] [address] [place], [address] Sodium [Moles/Vol] 138 mmol/L Normal 136-145 [facility] Comment on above: Performed By: #### L 501.3620, L500.4050 ####[facility] [address] [place], [address] T PROT 6.2 g/dL Low 6.4-8.2 [facility] Comment on above: Performed By: #### L 501.3620, L500.4050 ####[facility] [address] [place], [address] Urea nitrogen [Mass/Vol] 27 mg/dL High 7-18 [facility] Comment on above: Performed By: #### L 501.3620, L500.4050 ####[facility] [address] [place], [address] Albumin [Mass/Vol] 3.4 g/dL Normal 3.2-5.0 [facility] Comment on above: Order Comment: 'TROP ' Serial specimen #1, #2 or #3: 1 Performed By: #### L 300.4310, L500.4050, L503.6005, L100.0100, L300.3900, L501.4020 ####[facility] [address] [place], [address] Albumin/Globulin [Mass ratio] 1.2 {ratio} Normal 0.9-2.4 [facility] Comment on above: Order Comment: 'TROP ' Serial specimen #1, #2 or #3: 1 Performed By: #### L 300.4310, L500.4050, L503.6005, L100.0100, L300.3900, L501.4020 ####[facility] [address] [place], [address] ALK P 78 U/L Normal 45-117 [facility] Comment on above: Order Comment: 'TROP ' Serial specimen #1, #2 or #3: 1 Performed By: #### L 300.4310, L500.4050, L503.6005, L100.0100, L300.3900, L501.4020 ####[facility] [address] [place], [address] ALT [Catalytic activity/Vol] 11 U/L Low 16-61 [facility] Comment on above: Order Comment: 'TROP ' Serial specimen #1, #2 or #3: 1 Performed By: #### L 300.4310, L500.4050, L503.6005, L100.0100, L300.3900, L501.4020 ####[facility] [address] [place], [address] AST [Catalytic activity/Vol] 6 U/L Low 15-37 [facility] Comment on above: Order Comment: 'TROP ' Serial specimen #1, #2 or #3: 1 Performed By: #### L 300.4310, L500.4050, L503.6005, L100.0100, L300.3900, L501.4020 ####[facility] [address] [place], [address] Bilirubin [Mass/Vol] 1.30 mg/dL High 0.20-1.00 [facility] Comment on above: Order Comment: 'TROP ' Serial specimen #1, #2 or #3: 1 Result Comment: For patients on eltrombopag therapy, use of Dimension Lamar TBIL is not recommended. Performed By: #### L 300.4310, L500.4050, L503.6005, L100.0100, L300.3900, L501.4020 ####[facility] [address] [place], [address] BUN/CRE 14.4 RATIO Normal 10-20 [facility] Comment on above: Order Comment: 'TROP ' Serial specimen #1, #2 or #3: 1 Performed By: #### L 300.4310, L500.4050, L503.6005, L100.0100, L300.3900, L501.4020 ####[facility] [address] [place], [address] CA,Total 9.3 mg/dL Normal 8.5-10.1 [facility] Comment on above: Order Comment: 'TROP ' Serial specimen #1, #2 or #3: 1 Performed By: #### L 300.4310, L500.4050, L503.6005, L100.0100, L300.3900, L501.4020 ####[facility] [address] [place], [address] Chloride [Moles/Vol] 105 mmol/L Normal 98-107 [facility] Comment on above: Order Comment: 'TROP ' Serial specimen #1, #2 or #3: 1 Performed By: #### L 300.4310, L500.4050, L503.6005, L100.0100, L300.3900, L501.4020 ####[facility] [address] [place], [address] CO2 [Moles/Vol] 23.0 mmol/L Normal 21.0-32.0 [facility] Comment on above: Order Comment: 'TROP ' Serial specimen #1, #2 or #3: 1 Performed By: #### L 300.4310, L500.4050, L503.6005, L100.0100, L300.3900, L501.4020 ####[facility] [address] [place], [address] Creatinine [Mass/Vol] 1.94 mg/dL High 0.70-1.30 [facility] Comment on above: Order Comment: 'TROP ' Serial specimen #1, #2 or #3: 1 Result Comment: The validity of the calculated GFR GFRAA in patients over70 years has not been determined. Clinical correlation isessential. Performed By: #### L 300.4310, L500.4050, L503.6005, L100.0100, L300.3900, L501.4020 ####[facility] [address] [place], [address] ECRCL 38.60 ml/min Normal [facility] Comment on above: Order Comment: 'TROP ' Serial specimen #1, #2 or #3: 1 Performed By: #### L 300.4310, L500.4050, L503.6005, L100.0100, L300.3900, L501.4020 ####[facility] [address] [place], [address] EST GFR - AA 44 mL/min Low >60 [facility] Comment on above: Order Comment: 'TROP ' Serial specimen #1, #2 or #3: 1 Result Comment: Afri can Italian GFR Calc Performed By: #### L 300.4310, L500.4050, L503.6005, L100.0100, L300.3900, L501.4020 ####[facility] [address] [place], [address] GAP 8 Normal 5-15 [facility] Comment on above: Order Comment: 'TROP ' Serial specimen #1, #2 or #3: 1 Performed By: #### L 300.4310, L500.4050, L503.6005, L100.0100, L300.3900, L501.4020 ####[facility] [address] [place], [address] GFR/1.73 sq M.predicted among non-blacks MDRD (S/P/Bld) [Vol rate/Area] 37 mL/min/{1.73_m2} Low >60 [facility] Comment on above: Order Comment: 'TROP ' Serial specimen #1, #2 or #3: 1 Result Comment: Non- GFR Calc Performed By: #### L 300.4310, L500.4050, L503.6005, L100.0100, L300.3900, L501.4020 ####[facility] [address] [place], [address] Globulin (S) [Mass/Vol] 2.8 g/dL Normal 2.2-4.2 [facility] Comment on above: Order Comment: 'TROP ' Serial specimen #1, #2 or #3: 1 Performed By: #### L 300.4310, L500.4050, L503.6005, L100.0100, L300.3900, L501.4020 ####[facility] [address] [place], [address] Glucose [Mass/Vol] 120 mg/dL High 74-106 [facility] Comment on above: Order Comment: 'TROP ' Serial specimen #1, #2 or #3: 1 Result Comment: Fast ing Glucose result from 100 to 125 mg/dLsuggests IMPAIRED HOMEOSTASIS per A.D.A. criteria. Performed By: #### L 300.4310, L500.4050, L503.6005, L100.0100, L300.3900, L501.4020 ####[facility] [address] [place], [address] Potassium [Moles/Vol] 3.9 mmol/L Normal 3.5-5.1 [facility] Comment on above: Order Comment: 'TROP ' Serial specimen #1, #2 or #3: 1 Performed By: #### L 300.4310, L500.4050, L503.6005, L100.0100, L300.3900, L501.4020 ####[facility] [address] [place], [address] Sodium [Moles/Vol] 136 mmol/L Normal 136-145 [facility] Comment on above: Order Comment: 'TROP ' Serial specimen #1, #2 or #3: 1 Performed By: #### L 300.4310, L500.4050, L503.6005, L100.0100, L300.3900, L501.4020 ####[facility] [address] [place], [address] T PROT 6.2 g/dL Low 6.4-8.2 [facility] Comment on above: Order Comment: 'TROP ' Serial specimen #1, #2 or #3: 1 Performed By: #### L 300.4310, L500.4050, L503.6005, L100.0100, L300.3900, L501.4020 ####[facility] [address] [place], [address] Urea nitrogen [Mass/Vol] 28 mg/dL High 7-18 [facility] Comment on above: Order Comment: 'TROP ' Serial specimen #1, #2 or #3: 1 Performed By: #### L 300.4310, L500.4050, L503.6005, L100.0100, L300.3900, L501.4020 ####[facility] [address] [place], [address] Emergency Department Summary on 03-17-2024 Emergency Department Summary Normal [facility] Gram Stainon 03-17-2024 GS Acceptable Specimen? Yes (<25 Epithelial cells per/lpf) Gram Stain 2+ White Blood Cells 3+ Gram negative cocco bacillus Rare Gram positive cocci Normal [facility] Comment on above: Performed By: #### M 100.678, M100.2400, M100.2000 ####[facility] [address] [place], [address] H AND P Exam - Hospitaliston 03-17-2024 H&P Exam - Hospitalist Normal [facility] L501.4020on 03-17-2024 TROPONIN-I HS 9 pg/mL Normal 3.0-78.0 [facility] Comment on above: Order Comment: 'TROP ' Serial specimen #1, #2 or #3: 1 Result Comment: Plea se Note: New Test Units and Gender Specific Reference Ranges. For more information see Policy Stat Procedure Lamar High Sensitivity Troponin (TNIH) and attachments. Performed By: #### L 300.4310, L500.4050, L503.6005, L100.0100, L300.3900, L501.4020 ####[facility] [address] [place], [address] Lactic Acidon 03-17-2024 Lactate [Moles/Vol] 2.0 mmol/L Normal 0.4-1.9 [facility] Comment on above: Result Comment: Crit ical Result(s) Called at: 16:12:47 03/17/2024 by:CAROLEE CHAVEZ TO WES NIELSEN. Results read back by same. Performed By: #### L 503.6005 ####[facility] [address] [place], [address] Lactate [Moles/Vol] 2.5 mmol/L Invalid Interpretation Code 0.4-1.9 [facility] Comment on above: Order Comment: Y Result Comment: Crit ical Result(s) Called at: 11:17:55 03/17/2024 by:CAROLEE CHAVEZ TO MEHUL VALENTINE. Results read back bysame. Performed By: #### L 300.4310, L500.4050, L503.6005, L100.0100, L300.3900, L501.4020 ####[facility] [address] [place], [address] Legionella Antigen Urineon 1 05-18-2023 LEGU Normal [facility] Comment on above: Performed By: #### M 300.4500, M300.4600 ####[facility] [address] [place], [address] M100.678on 03-17-2024 M100.678 Pending SARS-CoV-2 (COVID 19) Negative INFLUENZA A Negative INFLUENZA B Negative RSV PCR Negative Normal [facility] Comment on above: Performed By: #### M 100.678, M100.2400, M100.2000 ####[facility] [address] [place], [address] Partial Thromboplast Timeon 03-17-2024 aPTT Coag (Bld) [Time] 35.3 s Normal 24.1-36.2 [facility] Comment on above: Performed By: #### L 300.4310, L500.4050, L503.6005, L100.0100, L300.3900, L501.4020 ####[facility] [address] [place], [address] Prothrombin Time w/INRon INR Coag (PPP) [Relative time] 1.7 {INR} Normal [facility] Comment on above: Performed By: #### L 300.4310, L500.4050, L503.6005, L100.0100, L300.3900, L501.4020 ####[facility] [address] [place], [address] PT Coag (PPP) [Time] 20.3 s High 11.7-14.9 [facility] Comment on above: Performed By: #### L 300.4310, L500.4050, L503.6005, L100.0100, L300.3900, L501.4020 ####[facility] [address] [place], [address] Strep pneumoniae Antig(UR,CS F)on 03-17-2024 STPAG Normal [facility] Comment on above: Performed By: #### M 300.4500, M300.4600 ####[facility] [address] [place], [address] Surgery Visit Reporton 03-17 Surgery Visit Report Normal [facility] Urinalysis, Completeon 03-17 BACTERIA 2+ /hpf Normal None Seen [facility] Comment on above: Order Comment: COLLE CTOR TO SPECIFY Performed By: #### L 400.0001, M100.2200 ####[facility] [address] [place], [address] CAST,HYALINE 0-5 SEEN Normal 0-5 [facility] Comment on above: Order Comment: COLLE CTOR TO SPECIFY Performed By: #### L 400.0001, ####[facility] [address] [place], [address] EPI,SQUAMOUS 0-5 SEEN Normal 0-5 [facility] Comment on above: Order Comment: LUIS ALFREDO CTOR TO SPECIFY Performed By: #### L 400.0001, .2199 ####[facility] [address] [place], [address] WBC 0-5 SEEN Normal 0-5 [facility] Comment on above: Order Comment: LUIS ALFREDO CTOR TO SPECIFY Performed By: #### L 400.0001, ####[facility] [address] [place], [address] BILIRUBIN URINE Negative Normal Negative [facility] Comment on above: Order Comment: LUIS ALFREDO CTOR TO SPECIFY Performed By: #### L 400.0001, ####[facility] [address] [place], [address] Clarity (U) Sl. Cloudy Normal Clear [facility] Comment on above: Order Comment: LUIS ALFREDO CTOR TO SPECIFY Performed By: #### L 400.0001, ####[facility] [address] [place], [address] Color (U) Yellow Normal Yellow [facility] Comment on above: Order Comment: LUIS ALFREDO CTOR TO SPECIFY Performed By: #### L 400.0001, ####[facility] [address] [place], [address] GLUCOSE, UR Normal Normal Normal [facility] Comment on above: Order Comment: LUIS ALFREDO CTOR TO SPECIFY Performed By: #### L 400.0001, ####[facility] [address] [place], [address] KETONE UR 5 mg/dl Abnormal Negative [facility] Comment on above: Order Comment: LUIS ALFREDO CTOR TO SPECIFY Performed By: #### L 400.0001, ####[facility] [address] [place], [address] LEUK ESTERASE 25 /ul Abnormal Negative [facility] Comment on above: Order Comment: LUIS ALFREDO CTOR TO SPECIFY Performed By: #### L 400.0001, ####[facility] [address] [place], [address] Nitrite Ql (U) Negative Normal Negative [facility] Comment on above: Order Comment: LUIS ALFREDO CTOR TO SPECIFY Performed By: #### L 400.0001, ####[facility] [address] [place], [address] OCCULT BLOOD-UR Negative Normal Negative [facility] Comment on above: Order Comment: LUIS ALFREDO CTOR TO SPECIFY Performed By: #### L 400.0001, ####[facility] [address] [place], [address] pH UR 6.5 Normal 5.0 - 8.0 [facility] Comment on above: Order Comment: LUIS ALFREDO CTOR TO SPECIFY Performed By: #### L 400.0001, ####[facility] [address] [place], [address] PROT DIPSTX 30 mg/dl Abnormal Negative [facility] Comment on above: Order Comment: LUIS ALFREDO CTOR TO SPECIFY Performed By: #### L 400.0001, ####[facility] [address] [place], [address] SP.GR. DIPSTX 1.010 Normal 1.002-1.030 [facility] Comment on above: Order Comment: LUIS ALFREDO CTOR TO SPECIFY Performed By: #### L 400.0001, ####[facility] [address] [place], [address] UROBILI 1 mg/dl Abnormal Normal [facility] Comment on above: Order Comment: COLLE CTOR TO SPECIFY Performed By: #### L 400.0001, M100.2200 ####[facility] [address] [place], [address] Mucus Ql (Urine sed) 0 SEEN Normal [facility] Comment on above: Order Comment: COLLE CTOR TO SPECIFY Performed By: #### L 400.0001, M100.2200 ####[facility] [address] [place], [address] RBC 0 SEEN Normal 0-5 [facility] Comment on above: Order Comment: COLLE CTOR TO SPECIFY Performed By: #### L 400.0001, M100.2200 ####[facility] [address] [place], [address] Basic Metabolic Profile (BMP )on 03-12-2024 BUN Normal 7-18 [facility] Comment on above: Result Comment: Canc elled via OM: Order cancelled - Patient discharged Performed By: #### L 500.2500, L100.0100 ####[facility] [address] [place], [address] BUN/CRE Normal 10-20 [facility] Comment on above: Result Comment: Canc elled via OM: Order cancelled - Patient discharged Performed By: #### L 500.2500, L100.0100 ####[facility] [address] [place], [address] CA,Total Normal 8.5-10.1 [facility] Comment on above: Result Comment: Canc elled via OM: Order cancelled - Patient discharged Performed By: #### L 500.2500, L100.0100 ####[facility] [address] [place], [address] CL Normal 98-107 [facility] Comment on above: Result Comment: Canc elled via OM: Order cancelled - Patient discharged Performed By: #### L 500.2500, L100.0100 ####[facility] [address] [place], [address] CO2 Normal 21.0-32.0 [facility] Comment on above: Result Comment: Canc elled via OM: Order cancelled - Patient discharged Performed By: #### L 500.2500, L100.0100 ####[facility] [address] [place], [address] CREAT,SERUM Normal 0.70-1.30 [facility] Comment on above: Result Comment: Canc elled via OM: Order cancelled - Patient discharged Performed By: #### L 500.2500, L100.0100 ####[facility] [address] [place], [address] EST GFR Normal >60 [facility] Comment on above: Result Comment: Canc elled via OM: Order cancelled - Patient discharged Performed By: #### L 500.2500, L100.0100 ####[facility] [address] [place], [address] EST GFR - AA Normal >60 [facility] Comment on above: Result Comment: Canc elled via OM: Order cancelled - Patient discharged Performed By: #### L 500.2500, L100.0100 ####[facility] [address] [place], [address] GAP Normal 5-15 [facility] Comment on above: Result Comment: Canc elled via OM: Order cancelled - Patient discharged Performed By: #### L 500.2500, L100.0100 ####[facility] [address] [place], [address] GLU Normal 74-106 [facility] Comment on above: Result Comment: Canc elled via OM: Order cancelled - Patient discharged Performed By: #### L 500.2500, L100.0100 ####[facility] [address] [place], [address] Potassium Normal 3.5-5.1 [facility] Comment on above: Result Comment: Canc elled via OM: Order cancelled - Patient discharged Performed By: #### L 500.2500, L100.0100 ####[facility] [address] [place], [address] Basic Metabolic Profile (BMP) Normal 136-145 [facility] Comment on above: Result Comment: Canc elled via OM: Order cancelled - Patient discharged Performed By: #### L 500.2500, L100.0100 ####[facility] [address] [place], [address] CBC W/Diff, Automatedon 11-2 Absolute Neut Normal 2.0-7.7 [facility] Comment on above: Result Comment: Canc elled via OM: Order cancelled - Patient discharged Performed By: #### L 500.2500, L100.0100 ####[facility] [address] [place], [address] HCT Normal 40-54 [facility] Comment on above: Result Comment: Canc elled via OM: Order cancelled - Patient discharged Performed By: #### L 500.2500, L100.0100 ####[facility] [address] [place], [address] HGB Normal 13.0-16.5 [facility] Comment on above: Result Comment: Canc elled via OM: Order cancelled - Patient discharged Performed By: #### L 500.2500, L100.0100 ####[facility] [address] [place], [address] MCH Normal 27.0-32.0 [facility] Comment on above: Result Comment: Canc elled via OM: Order cancelled - Patient discharged Performed By: #### L 500.2500, L100.0100 ####[facility] [address] [place], [address] MCHC Normal 32-36 [facility] Comment on above: Result Comment: Canc elled via OM: Order cancelled - Patient discharged Performed By: #### L 500.2500, L100.0100 ####[facility] [address] [place], [address] MCV Normal 80-94 [facility] Comment on above: Result Comment: Canc elled via OM: Order cancelled - Patient discharged Performed By: #### L 500.2500, L100.0100 ####[facility] [address] [place], [address] NEUT% Normal 47-70 [facility] Comment on above: Result Comment: Canc elled via OM: Order cancelled - Patient discharged Performed By: #### L 500.2500, L100.0100 ####[facility] [address] [place], [address] PLT Normal 150-450 [facility] Comment on above: Result Comment: Canc elled via OM: Order cancelled - Patient discharged Performed By: #### L 500.2500, L100.0100 ####[facility] [address] [place], [address] RBC Normal 4.6-6.2 [facility] Comment on above: Result Comment: Canc elled via OM: Order cancelled - Patient discharged Performed By: #### L 500.2500, L100.0100 ####[facility] [address] [place], [address] RDW CV Normal 11.6-14.6 [facility] Comment on above: Result Comment: Canc elled via OM: Order cancelled - Patient discharged Performed By: #### L 500.2500, L100.0100 ####[facility] [address] [place], [address] RDW SD Normal 35.1-43.9 [facility] Comment on above: Result Comment: Canc elled via OM: Order cancelled - Patient discharged Performed By: #### L 500.2500, L100.0100 ####[facility] [address] [place], [address] WBC Normal 4.4-11.0 [facility] Comment on above: Result Comment: Canc elled via OM: Order cancelled - Patient discharged Performed By: #### L 500.2500, L100.0100 ####[facility] [address] [place], [address] Basic Metabolic Profile (BMP )on 03-05-2024 BUN Normal 7-18 [facility] Comment on above: Result Comment: Canc elled via OM: Order cancelled - Patient discharged Performed By: #### L 100.0100, L500.2500 ####[facility] [address] [place], [address] BUN/CRE Normal 10-20 [facility] Comment on above: Result Comment: Canc elled via OM: Order cancelled - Patient discharged Performed By: #### L 100.0100, L500.2500 ####[facility] [address] [place], [address] CA,Total Normal 8.5-10.1 [facility] Comment on above: Result Comment: Canc elled via OM: Order cancelled - Patient discharged Performed By: #### L 100.0100, L500.2500 ####[facility] [address] [place], [address] CL Normal 98-107 [facility] Comment on above: Result Comment: Canc elled via OM: Order cancelled - Patient discharged Performed By: #### L 100.0100, L500.2500 ####[facility] [address] [place], [address] CO2 Normal 21.0-32.0 [facility] Comment on above: Result Comment: Canc elled via OM: Order cancelled - Patient discharged Performed By: #### L 100.0100, L500.2500 ####[facility] [address] [place], [address] CREAT,SERUM Normal 0.70-1.30 [facility] Comment on above: Result Comment: Canc elled via OM: Order cancelled - Patient discharged Performed By: #### L 100.0100, L500.2500 ####[facility] [address] [place], [address] EST GFR Normal >60 [facility] Comment on above: Result Comment: Canc elled via OM: Order cancelled - Patient discharged Performed By: #### L 100.0100, L500.2500 ####[facility] [address] [place], [address] EST GFR - AA Normal >60 [facility] Comment on above: Result Comment: Canc elled via OM: Order cancelled - Patient discharged Performed By: #### L 100.0100, L500.2500 ####[facility] [address] [place], [address] GAP Normal 5-15 [facility] Comment on above: Result Comment: Canc elled via OM: Order cancelled - Patient discharged Performed By: #### L 100.0100, L500.2500 ####[facility] [address] [place], [address] GLU Normal 74-106 [facility] Comment on above: Result Comment: Canc elled via OM: Order cancelled - Patient discharged Performed By: #### L 100.0100, L500.2500 ####[facility] [address] [place], [address] Potassium Normal 3.5-5.1 [facility] Comment on above: Result Comment: Canc elled via OM: Order cancelled - Patient discharged Performed By: #### L 100.0100, L500.2500 ####[facility] [address] [place], [address] Basic Metabolic Profile (BMP) Normal 136-145 [facility] Comment on above: Result Comment: Canc elled via OM: Order cancelled - Patient discharged Performed By: #### L 100.0100, L500.2500 ####[facility] [address] [place], [address] CBC W/Diff, Automatedon 11-2 Absolute Neut Normal 2.0-7.7 [facility] Comment on above: Result Comment: Canc elled via OM: Order cancelled - Patient discharged Performed By: #### L 100.0100, L500.2500 ####[facility] [address] [place], [address] HCT Normal 40-54 [facility] Comment on above: Result Comment: Canc elled via OM: Order cancelled - Patient discharged Performed By: #### L 100.0100, L500.2500 ####[facility] [address] [place], [address] HGB Normal 13.0-16.5 [facility] Comment on above: Result Comment: Canc elled via OM: Order cancelled - Patient discharged Performed By: #### L 100.0100, L500.2500 ####[facility] [address] [place], [address] MCH Normal 27.0-32.0 [facility] Comment on above: Result Comment: Canc elled via OM: Order cancelled - Patient discharged Performed By: #### L 100.0100, L500.2500 ####[facility] [address] [place], [address] MCHC Normal 32-36 [facility] Comment on above: Result Comment: Canc elled via OM: Order cancelled - Patient discharged Performed By: #### L 100.0100, L500.2500 ####[facility] [address] [place], [address] MCV Normal 80-94 [facility] Comment on above: Result Comment: Canc elled via OM: Order cancelled - Patient discharged Performed By: #### L 100.0100, L500.2500 ####[facility] [address] [place], [address] NEUT% Normal 47-70 [facility] Comment on above: Result Comment: Canc elled via OM: Order cancelled - Patient discharged Performed By: #### L 100.0100, L500.2500 ####[facility] [address] [place], [address] PLT Normal 150-450 [facility] Comment on above: Result Comment: Canc elled via OM: Order cancelled - Patient discharged Performed By: #### L 100.0100, L500.2500 ####[facility] [address] [place], [address] RBC Normal 4.6-6.2 [facility] Comment on above: Result Comment: Canc elled via OM: Order cancelled - Patient discharged Performed By: #### L 100.0100, L500.2500 ####[facility] [address] [place], [address] RDW CV Normal 11.6-14.6 [facility] Comment on above: Result Comment: Canc elled via OM: Order cancelled - Patient discharged Performed By: #### L 100.0100, L500.2500 ####[facility] [address] [place], [address] RDW SD Normal 35.1-43.9 [facility] Comment on above: Result Comment: Canc elled via OM: Order cancelled - Patient discharged Performed By: #### L 100.0100, L500.2500 ####[facility] [address] [place], [address] WBC Normal 4.4-11.0 [facility] Comment on above: Result Comment: Canc elled via OM: Order cancelled - Patient discharged Performed By: #### L 100.0100, L500.2500 ####[facility] [address] [place], [address] Basic Metabolic Profile (BMP )on 02-27-2024 BUN Normal 7-18 [facility] Comment on above: Result Comment: Canc elled via OM: Order cancelled - Patient discharged Performed By: #### L 100.0100, L500.2500 ####[facility] [address] [place], [address] BUN/CRE Normal 10-20 [facility] Comment on above: Result Comment: Canc elled via OM: Order cancelled - Patient discharged Performed By: #### L 100.0100, L500.2500 ####[facility] [address] [place], [address] CA,Total Normal 8.5-10.1 [facility] Comment on above: Result Comment: Canc elled via OM: Order cancelled - Patient discharged Performed By: #### L 100.0100, L500.2500 ####[facility] [address] [place], [address] CL Normal 98-107 [facility] Comment on above: Result Comment: Canc elled via OM: Order cancelled - Patient discharged Performed By: #### L 100.0100, L500.2500 ####[facility] [address] [place], [address] CO2 Normal 21.0-32.0 [facility] Comment on above: Result Comment: Canc elled via OM: Order cancelled - Patient discharged Performed By: #### L 100.0100, L500.2500 ####[facility] [address] [place], [address] CREAT,SERUM Normal 0.70-1.30 [facility] Comment on above: Result Comment: Canc elled via OM: Order cancelled - Patient discharged Performed By: #### L 100.0100, L500.2500 ####[facility] [address] [place], [address] EST GFR Normal >60 [facility] Comment on above: Result Comment: Canc elled via OM: Order cancelled - Patient discharged Performed By: #### L 100.0100, L500.2500 ####[facility] [address] [place], [address] EST GFR - AA Normal >60 [facility] Comment on above: Result Comment: Canc elled via OM: Order cancelled - Patient discharged Performed By: #### L 100.0100, L500.2500 ####[facility] [address] [place], [address] GAP Normal 5-15 [facility] Comment on above: Result Comment: Canc elled via OM: Order cancelled - Patient discharged Performed By: #### L 100.0100, L500.2500 ####[facility] [address] [place], [address] GLU Normal 74-106 [facility] Comment on above: Result Comment: Canc elled via OM: Order cancelled - Patient discharged Performed By: #### L 100.0100, L500.2500 ####[facility] [address] [place], [address] Potassium Normal 3.5-5.1 [facility] Comment on above: Result Comment: Canc elled via OM: Order cancelled - Patient discharged Performed By: #### L 100.0100, L500.2500 ####[facility] [address] [place], [address] Basic Metabolic Profile (BMP) Normal 136-145 [facility] Comment on above: Result Comment: Canc elled via OM: Order cancelled - Patient discharged Performed By: #### L 100.0100, L500.2500 ####[facility] [address] [place], [address] CBC W/Diff, Automatedon 11- Absolute Neut Normal 2.0-7.7 [facility] Comment on above: Result Comment: Canc elled via OM: Order cancelled - Patient discharged Performed By: #### L 100.0100, L500.2500 ####[facility] [address] [place], [address] HCT Normal 40-54 [facility] Comment on above: Result Comment: Canc elled via OM: Order cancelled - Patient discharged Performed By: #### L 100.0100, L500.2500 ####[facility] [address] [place], [address] HGB Normal 13.0-16.5 [facility] Comment on above: Result Comment: Canc elled via OM: Order cancelled - Patient discharged Performed By: #### L 100.0100, L500.2500 ####[facility] [address] [place], [address] MCH Normal 27.0-32.0 [facility] Comment on above: Result Comment: Canc elled via OM: Order cancelled - Patient discharged Performed By: #### L 100.0100, L500.2500 ####[facility] [address] [place], [address] MCHC Normal 32-36 [facility] Comment on above: Result Comment: Canc elled via OM: Order cancelled - Patient discharged Performed By: #### L 100.0100, L500.2500 ####[facility] [address] [place], [address] MCV Normal 80-94 [facility] Comment on above: Result Comment: Canc elled via OM: Order cancelled - Patient discharged Performed By: #### L 100.0100, L500.2500 ####[facility] [address] [place], [address] NEUT% Normal 47-70 [facility] Comment on above: Result Comment: Canc elled via OM: Order cancelled - Patient discharged Performed By: #### L 100.0100, L500.2500 ####[facility] [address] [place], [address] PLT Normal 150-450 [facility] Comment on above: Result Comment: Canc elled via OM: Order cancelled - Patient discharged Performed By: #### L 100.0100, L500.2500 ####[facility] [address] [place], [address] RBC Normal 4.6-6.2 [facility] Comment on above: Result Comment: Canc elled via OM: Order cancelled - Patient discharged Performed By: #### L 100.0100, L500.2500 ####[facility] [address] [place], [address] RDW CV Normal 11.6-14.6 [facility] Comment on above: Result Comment: Canc elled via OM: Order cancelled - Patient discharged Performed By: #### L 100.0100, L500.2500 ####[facility] [address] [place], [address] RDW SD Normal 35.1-43.9 [facility] Comment on above: Result Comment: Canc elled via OM: Order cancelled - Patient discharged Performed By: #### L 100.0100, L500.2500 ####[facility] [address] [place], [address] WBC Normal 4.4-11.0 [facility] Comment on above: Result Comment: Canc elled via OM: Order cancelled - Patient discharged Performed By: #### L 100.0100, L500.2500 ####[facility] [address] [place], [address] Forearm 2 Viewson 02-27-2024 Forearm 2 Views Normal [facility] L/S Spine Min 4 Viewson 02-12 L/S Spine Min 4 Views Normal [facility] Inital Evaluation (1) - PTon 02-24-2024 Inital Evaluation (1) - PT Normal [facility] Respiratory Cultureon 2023 RESPC Normal [facility] Comment on above: Performed By: #### M 100.2000, M100.2400 ####[facility] [address] [place], [address] Basic Metabolic Profile (BMP )on 02-20-2024 BUN/CRE 20.4 RATIO High 10-20 [facility] Comment on above: Performed By: #### L 500.2500, L100.0100 ####[facility] [address] [place], [address] CA,Total 9.1 mg/dL Normal 8.5-10.1 [facility] Comment on above: Performed By: #### L 500.2500, L100.0100 ####[facility] [address] [place], [address] Chloride [Moles/Vol] 116 mmol/L High 98-107 [facility] Comment on above: Performed By: #### L 500.2500, L100.0100 ####[facility] [address] [place], [address] CO2 [Moles/Vol] 19.0 mmol/L Low 21.0-32.0 [facility] Comment on above: Performed By: #### L 500.2500, L100.0100 ####[facility] [address] [place], [address] Creatinine [Mass/Vol] 1.67 mg/dL High 0.70-1.30 [facility] Comment on above: Result Comment: The validity of the calculated GFR GFRAA in patients over70 years has not been determined. Clinical correlation isessential. Performed By: #### L 500.2500, L100.0100 ####[facility] [address] [place], [address] ECRCL 41.16 ml/min Normal [facility] Comment on above: Performed By: #### L 500.2500, L100.0100 ####[facility] [address] [place], [address] EST GFR - AA 53 mL/min Low >60 [facility] Comment on above: Result Comment: Afri can Italian GFR Calc Performed By: #### L 500.2500, L100.0100 ####[facility] [address] [place], [address] GAP 7 Normal 5-15 [facility] Comment on above: Performed By: #### L 500.2500, L100.0100 ####[facility] [address] [place], [address] GFR/1.73 sq M.predicted among non-blacks MDRD (S/P/Bld) [Vol rate/Area] 43 mL/min/{1.73_m2} Low >60 [facility] Comment on above: Result Comment: Non- GFR Calc Performed By: #### L 500.2500, L100.0100 ####[facility] [address] [place], [address] Glucose [Mass/Vol] 92 mg/dL Normal 74-106 [facility] Comment on above: Performed By: #### L 500.2500, L100.0100 ####[facility] [address] [place], [address] Potassium [Moles/Vol] 4.6 mmol/L Normal 3.5-5.1 [facility] Comment on above: Performed By: #### L 500.2500, L100.0100 ####[facility] [address] [place], [address] Sodium [Moles/Vol] 142 mmol/L Normal 136-145 [facility] Comment on above: Performed By: #### L 500.2500, L100.0100 ####[facility] [address] [place], [address] Urea nitrogen [Mass/Vol] 34 mg/dL High 7-18 [facility] Comment on above: Performed By: #### L 500.2500, L100.0100 ####[facility] [address] [place], [address] CBC W/Diff, Automatedon 11-0 PATH REV Reviewed Normal [facility] Comment on above: Result Comment: Abso lute lymphocytosis suggestive of low grade lympho-proliferative disorder.Clinical correlation is necessary.Macrocytic anemia.Clinical correlation necessary.Prashanth Machado M.D. 02/20/24 AMENDED REPORT 02/20/24 1446 PATH REV previously reported as: August Performed By: #### L 500.2500, L100.0100 ####[facility] [address] [place], [address] Gram Stainon 02-18-2024 GS List Antibiotics [place] t 48 Hours? Flagyl, Omnicef Acceptable Specimen? Yes (<25 Epithelial cells per/lpf) Gram Stain 3+ Red Blood Cells Rare White Blood Cells 2+ Gram positive cocci in clusters Normal [facility] Comment on above: Performed By: #### M 100.2000, M100.2400 ####[facility] [address] [place], [address] CBC W/Diff, Automatedon 11-0 PATH REV Reviewed Normal [facility] Comment on above: Result Comment: Abso lute lymphocytosis suggestive of low grade lympho-proliferative disorder.Clinical correlation is necessary.Macrocytic anemia.Prashanth Machado M.D. 02/16/24 AMENDED REPORT 02/16/24 1419 PATH REV previously reported as: August Performed By: #### L 500.4100, L500.2500, L100.0100 ####[facility] [address] [place], [address] Basic Metabolic Profile (BMP )on 02-13-2024 BUN/CRE 18.7 RATIO Normal 10-20 [facility] Comment on above: Performed By: #### L 500.4100, L500.2500, L100.0100 ####[facility] [address] [place], [address] CA,Total 9.4 mg/dL Normal 8.5-10.1 [facility] Comment on above: Performed By: #### L 500.4100, L500.2500, L100.0100 ####[facility] [address] [place], [address] Chloride [Moles/Vol] 113 mmol/L High 98-107 [facility] Comment on above: Performed By: #### L 500.4100, L500.2500, L100.0100 ####[facility] [address] [place], [address] CO2 [Moles/Vol] 20.0 mmol/L Low 21.0-32.0 [facility] Comment on above: Performed By: #### L 500.4100, L500.2500, L100.0100 ####[facility] [address] [place], [address] Creatinine [Mass/Vol] 1.82 mg/dL High 0.70-1.30 [facility] Comment on above: Result Comment: The validity of the calculated GFR GFRAA in patients over70 years has not been determined. Clinical correlation isessential. Performed By: #### L 500.4100, L500.2500, L100.0100 ####[facility] [address] [place], [address] ECRCL 37.77 ml/min Normal [facility] Comment on above: Performed By: #### L 500.4100, L500.2500, L100.0100 ####[facility] [address] [place], [address] EST GFR - AA 48 mL/min Low >60 [facility] Comment on above: Result Comment: Afri can Italian GFR Calc Performed By: #### L 500.4100, L500.2500, L100.0100 ####[facility] [address] [place], [address] GAP 7 Normal 5-15 [facility] Comment on above: Performed By: #### L 500.4100, L500.2500, L100.0100 ####[facility] [address] [place], [address] GFR/1.73 sq M.predicted among non-blacks MDRD (S/P/Bld) [Vol rate/Area] 39 mL/min/{1.73_m2} Low >60 [facility] Comment on above: Result Comment: Non- GFR Calc Performed By: #### L 500.4100, L500.2500, L100.0100 ####[facility] [address] [place], [address] Glucose [Mass/Vol] 98 mg/dL Normal 74-106 [facility] Comment on above: Performed By: #### L 500.4100, L500.2500, L100.0100 ####[facility] [address] [place], [address] Potassium [Moles/Vol] 4.5 mmol/L Normal 3.5-5.1 [facility] Comment on above: Performed By: #### L 500.4100, L500.2500, L100.0100 ####[facility] [address] [place], [address] Sodium [Moles/Vol] 140 mmol/L Normal 136-145 [facility] Comment on above: Performed By: #### L 500.4100, L500.2500, L100.0100 ####[facility] [address] [place], [address] Urea nitrogen [Mass/Vol] 34 mg/dL High 7-18 [facility] Comment on above: Performed By: #### L 500.4100, L500.2500, L100.0100 ####[facility] [address] [place], [address] CBC W/Diff, Automatedon PATH REV Reviewed Normal [facility] Comment on above: Result Comment: Abso lute lymphocytosis suggestive of low grade lympho-proliferative disorder.Clinical correlation is necessary.Macrocytic anemia.Thrombocytosis.Prashanth Machado M.D. 02/13/24 AMENDED REPORT 02/13/24 1440 PATH REV previously reported as: Skye archuleta Performed By: #### L 100.0100, L100.9950, L500.4050, L503.6550, L503.6030 ####[facility] [address] [place], [address] Lipid Profileon 02-13-2024 Cholesterol [Mass/Vol] 102 mg/dL Normal 200 [facility] Comment on above: Result Comment: <200 mg/dL Desirable 200-240 mg/dL Borderline >240 mg/dL High Risk Performed By: #### L 500.4100, L500.2500, L100.0100 ####[facility] [address] [place], [address] Cholesterol in HDL [Mass/Vol] 43 mg/dL Normal [facility] Comment on above: Result Comment: The drugs N-Acetylcysteine and Metamizole may falselydepress this assay. Reference Range HDL <40 mg/dL Low HDL Cholesterol HDL >or= 60 mg/dL High HDL Cholesterol Performed By: #### L 500.4100, L500.2500, L100.0100 ####[facility] [address] [place], [address] Cholesterol in LDL [Mass/Vol] 30 mg/dL Normal 0-130 [facility] Comment on above: Performed By: #### L 500.4100, L500.2500, L100.0100 ####[facility] [address] [place], [address] Cholesterol in VLDL [Mass/Vol] 29 mg/dL Normal 5-40 [facility] Comment on above: Performed By: #### L 500.4100, L500.2500, L100.0100 ####[facility] [address] [place], [address] Triglyceride [Mass/Vol] 144 mg/dL Normal [facility] Comment on above: Result Comment: The drugs N-Acetylcysteine and Metamizole may falselydepress this assay.Serum Triglycerides Reference Interval Normal <150 mg/dL Borderline high 150 - 199 mg/dL High 200 - 499 mg/dL Very High > or = 500 mg/dL Performed By: #### L 500.4100, L500.2500, L100.0100 ####[facility] [address] [place], [address] Comprehensive Metabolic Prof [facility] 02-12-2024 Albumin [Mass/Vol] 3.1 g/dL Low 3.2-5.0 [facility] Comment on above: Performed By: #### L 100.0100, L100.9950, L500.4050, L503.6550, L503.6030 ####[facility] [address] [place], [address] Albumin/Globulin [Mass ratio] 0.9 {ratio} Normal 0.9-2.4 [facility] Comment on above: Performed By: #### L 100.0100, L100.9950, L500.4050, L503.6550, L503.6030 ####[facility] [address] [place], [address] ALK P 119 U/L High 45-117 [facility] Comment on above: Performed By: #### L 100.0100, L100.9950, L500.4050, L503.6550, L503.6030 ####[facility] [address] [place], [address] ALT [Catalytic activity/Vol] 15 U/L Low 16-61 [facility] Comment on above: Performed By: #### L 100.0100, L100.9950, L500.4050, L503.6550, L503.6030 ####[facility] [address] [place], [address] AST [Catalytic activity/Vol] 10 U/L Low 15-37 [facility] Comment on above: Performed By: #### L 100.0100, L100.9950, L500.4050, L503.6550, L503.6030 ####[facility] [address] [place], [address] Bilirubin [Mass/Vol] 0.30 mg/dL Normal 0.20-1.00 [facility] Comment on above: Result Comment: For patients on eltrombopag therapy, use of Dimension Lamar TBIL is not recommended. Performed By: #### L 100.0100, L100.9950, L500.4050, L503.6550, L503.6030 ####[facility] [address] [place], [address] BUN/CRE 15.9 RATIO Normal 10-20 [facility] Comment on above: Performed By: #### L 100.0100, L100.9950, L500.4050, L503.6550, L503.6030 ####[facility] [address] [place], [address] CA,Total 9.7 mg/dL Normal 8.5-10.1 [facility] Comment on above: Performed By: #### L 100.0100, L100.9950, L500.4050, L503.6550, L503.6030 ####[facility] [address] [place], [address] Chloride [Moles/Vol] 109 mmol/L High 98-107 [facility] Comment on above: Performed By: #### L 100.0100, L100.9950, L500.4050, L503.6550, L503.6030 ####[facility] [address] [place], [address] CO2 [Moles/Vol] 20.0 mmol/L Low 21.0-32.0 [facility] Comment on above: Performed By: #### L 100.0100, L100.9950, L500.4050, L503.6550, L503.6030 ####[facility] [address] [place], [address] Creatinine [Mass/Vol] 1.95 mg/dL High 0.70-1.30 [facility] Comment on above: Result Comment: The validity of the calculated GFR GFRAA in patients over70 years has not been determined. Clinical correlation isessential. Performed By: #### L 100.0100, L100.9950, L500.4050, L503.6550, L503.6030 ####[facility] [address] [place], [address] ECRCL 39.43 ml/min Normal [facility] Comment on above: Performed By: #### L 100.0100, L100.9950, L500.4050, L503.6550, L503.6030 ####[facility] [address] [place], [address] EST GFR - AA 44 mL/min Low >60 [facility] Comment on above: Result Comment: Afri can Italian GFR Calc Performed By: #### L 100.0100, L100.9950, L500.4050, L503.6550, L503.6030 ####[facility] [address] [place], [address] GAP 8 Normal 5-15 [facility] Comment on above: Performed By: #### L 100.0100, L100.9950, L500.4050, L503.6550, L503.6030 ####[facility] [address] [place], [address] GFR/1.73 sq M.predicted among non-blacks MDRD (S/P/Bld) [Vol rate/Area] 36 mL/min/{1.73_m2} Low >60 [facility] Comment on above: Result Comment: Non- GFR Calc Performed By: #### L 100.0100, L100.9950, L500.4050, L503.6550, L503.6030 ####[facility] [address] [place], [address] Globulin (S) [Mass/Vol] 3.5 g/dL Normal 2.2-4.2 [facility] Comment on above: Performed By: #### L 100.0100, L100.9950, L500.4050, L503.6550, L503.6030 ####[facility] [address] [place], [address] Glucose [Mass/Vol] 113 mg/dL High 74-106 [facility] Comment on above: Result Comment: Fast ing Glucose result from 100 to 125 mg/dLsuggests IMPAIRED HOMEOSTASIS per A.D.A. criteria. Performed By: #### L 100.0100, L100.9950, L500.4050, L503.6550, L503.6030 ####[facility] [address] [place], [address] Potassium [Moles/Vol] 4.2 mmol/L Normal 3.5-5.1 [facility] Comment on above: Performed By: #### L 100.0100, L100.9950, L500.4050, L503.6550, L503.6030 ####[facility] [address] [place], [address] Sodium [Moles/Vol] 137 mmol/L Normal 136-145 [facility] Comment on above: Performed By: #### L 100.0100, L100.9950, L500.4050, L503.6550, L503.6030 ####[facility] [address] [place], [address] T PROT 6.6 g/dL Normal 6.4-8.2 [facility] Comment on above: Performed By: #### L 100.0100, L100.9950, L500.4050, L503.6550, L503.6030 ####[facility] [address] [place], [address] Urea nitrogen [Mass/Vol] 31 mg/dL High 7-18 [facility] Comment on above: Performed By: #### L 100.0100, L100.9950, L500.4050, L503.6550, L503.6030 ####[facility] [address] [place], [address] Ferritinon 02-12-2024 Ferritin [Mass/Vol] 238 ng/mL Normal 26-388 [facility] Comment on above: Performed By: #### L 100.0100, L100.9950, L500.4050, L503.6550, L503.6030 ####[facility] [address] [place], [address] Iron+Iron Binding Capacityon 02-12-2024 Iron [Mass/Vol] 106 ug/dL Normal 65-175 [facility] Comment on above: Performed By: #### L 100.0100, L100.9950, L500.4050, L503.6550, L503.6030 ####[facility] [address] [place], [address] IRON SATURATION 36.8 Normal 15.0-55.0 [facility] Comment on above: Performed By: #### L 100.0100, L100.9950, L500.4050, L503.6550, L503.6030 ####[facility] [address] [place], [address] TIBC 288 ug/dL Normal 250-450 [facility] Comment on above: Performed By: #### L 100.0100, L100.9950, L500.4050, L503.6550, L503.6030 ####[facility] [address] [place], [address] Oncology Visit Reporton 01-14 Oncology Visit Report Normal [facility] Retic Panelon 02-12-2024 IM RET FRACTION 29.40 High 3.00-15.90 [facility] Comment on above: Performed By: #### L 100.0100, L100.9950, L500.4050, L503.6550, L503.6030 ####[facility] [address] [place], [address] RET-HE 30.0 pg Normal 30-35 [facility] Comment on above: Performed By: #### L 100.0100, L100.9950, L500.4050, L503.6550, L503.6030 ####[facility] [address] [place], [address] Retic Count 3.24 High 0.5-1.5 [facility] Comment on above: Performed By: #### L 100.0100, L100.9950, L500.4050, L503.6550, L503.6030 ####[facility] [address] [place], [address] Chest without Contraston Chest without Contrast Normal [facility] Spine Cervical (Routine)on 1 Spine Cervical (Routine) Normal [facility] Brain without Contraston Brain without Contrast Normal [facility] CBC W/Diff, Automatedon 01-13 PATH REV Reviewed Normal [facility] Comment on above: Result Comment: Abso lute lymphocytosis suggestive of low grade lympho-proliferative disorder.Clinical correlation is necessary.Macrocytic anemia.Clinical correlation necessary.Prashanth Machado M.D. 02/09/24Prashanth Machado M.D. 02/09/24 AMENDED REPORT 02/09/24 1418 PATH REV previously reported as: August Performed By: #### L 500.2500, L100.0100 ####[facility] [address] [place], [address] HH, Hemoglobin AND Hematocri ton 02-09-2024 Hematocrit (Bld) [Volume fraction] 26.5 % Low 40-54 [facility] Comment on above: Performed By: #### L 100.0600 ####[facility] [address] [place], [address] Hemoglobin (Bld) [Mass/Vol] 8.3 g/dL Low 13.0-16.5 [facility] Comment on above: Performed By: #### L 100.0600 ####[facility] [address] [place], [address] Basic Metabolic Profile (BMP )on 02-07-2024 BUN/CRE 15.5 RATIO Normal 01-31 [facility] Comment on above: Performed By: #### L 500.2500, L100.0100 ####[facility] [address] [place], [address] CA,Total 10.1 mg/dL Normal 8.5-10.1 [facility] Comment on above: Performed By: #### L 500.2500, L100.0100 ####[facility] [address] [place], [address] Chloride [Moles/Vol] 108 mmol/L High 98-107 [facility] Comment on above: Performed By: #### L 500.2500, L100.0100 ####[facility] [address] [place], [address] CO2 [Moles/Vol] 24.0 mmol/L Normal 21.0-32.0 [facility] Comment on above: Performed By: #### L 500.2500, L100.0100 ####[facility] [address] [place], [address] Creatinine [Mass/Vol] 1.74 mg/dL High 0.70-1.30 [facility] Comment on above: Result Comment: The validity of the calculated GFR GFRAA in patients over70 years has not been determined. Clinical correlation isessential. Performed By: #### L 500.2500, L100.0100 ####[facility] [address] [place], [address] ECRCL 39.50 ml/min Normal [facility] Comment on above: Performed By: #### L 500.2500, L100.0100 ####[facility] [address] [place], [address] EST GFR - AA 50 mL/min Low >60 [facility] Comment on above: Result Comment: Afri can Italian GFR Calc Performed By: #### L 500.2500, L100.0100 ####[facility] [address] [place], [address] GAP 6 Normal 5-15 [facility] Comment on above: Performed By: #### L 500.2500, L100.0100 ####[facility] [address] [place], [address] GFR/1.73 sq M.predicted among non-blacks MDRD (S/P/Bld) [Vol rate/Area] 41 mL/min/{1.73_m2} Low >60 [facility] Comment on above: Result Comment: Non- GFR Calc Performed By: #### L 500.2500, L100.0100 ####[facility] [address] [place], [address] Glucose [Mass/Vol] 109 mg/dL High 74-106 [facility] Comment on above: Result Comment: Fast ing Glucose result from 100 to 125 mg/dLsuggests IMPAIRED HOMEOSTASIS per A.D.A. criteria. Performed By: #### L 500.2500, L100.0100 ####[facility] [address] [place], [address] Potassium [Moles/Vol] 4.1 mmol/L Normal 3.5-5.1 [facility] Comment on above: Performed By: #### L 500.2500, L100.0100 ####[facility] [address] [place], [address] Sodium [Moles/Vol] 138 mmol/L Normal 136-145 [facility] Comment on above: Performed By: #### L 500.2500, L100.0100 ####[facility] [address] [place], [address] Urea nitrogen [Mass/Vol] 27 mg/dL High 7-18 [facility] Comment on above: Performed By: #### L 500.2500, L100.0100 ####[facility] [address] [place], [address] Basic Metabolic Profile (BMP )on 02-06-2024 BUN/CRE 14.0 RATIO Normal - [facility] Comment on above: Performed By: #### L 100.0100, L500.2500 ####[facility] [address] [place], [address] CA,Total 9.8 mg/dL Normal 8.5-10.1 [facility] Comment on above: Performed By: #### L 100.0100, L500.2500 ####[facility] [address] [place], [address] Chloride [Moles/Vol] 106 mmol/L Normal 98-107 [facility] Comment on above: Performed By: #### L 100.0100, L500.2500 ####[facility] [address] [place], [address] CO2 [Moles/Vol] 24.0 mmol/L Normal 21.0-32.0 [facility] Comment on above: Performed By: #### L 100.0100, L500.2500 ####[facility] [address] [place], [address] Creatinine [Mass/Vol] 1.86 mg/dL High 0.70-1.30 [facility] Comment on above: Result Comment: The validity of the calculated GFR GFRAA in patients over70 years has not been determined. Clinical correlation isessential. Performed By: #### L 100.0100, L500.2500 ####[facility] [address] [place], [address] ECRCL 36.95 ml/min Normal [facility] Comment on above: Performed By: #### L 100.0100, L500.2500 ####[facility] [address] [place], [address] EST GFR - AA 46 mL/min Low >60 [facility] Comment on above: Result Comment: Afri can Italian GFR Calc Performed By: #### L 100.0100, L500.2500 ####[facility] [address] [place], [address] GAP 7 Normal 5-15 [facility] Comment on above: Performed By: #### L 100.0100, L500.2500 ####[facility] [address] [place], [address] GFR/1.73 sq M.predicted among non-blacks MDRD (S/P/Bld) [Vol rate/Area] 38 mL/min/{1.73_m2} Low >60 [facility] Comment on above: Result Comment: Non- GFR Calc Performed By: #### L 100.0100, L500.2500 ####[facility] [address] [place], [address] Glucose [Mass/Vol] 105 mg/dL Normal 74-106 [facility] Comment on above: Result Comment: Fast ing Glucose result from 100 to 125 mg/dLsuggests IMPAIRED HOMEOSTASIS per A.D.A. criteria. Performed By: #### L 100.0100, L500.2500 ####[facility] [address] [place], [address] Potassium [Moles/Vol] 4.4 mmol/L Normal 3.5-5.1 [facility] Comment on above: Performed By: #### L 100.0100, L500.2500 ####[facility] [address] [place], [address] Sodium [Moles/Vol] 137 mmol/L Normal 136-145 [facility] Comment on above: Performed By: #### L 100.0100, L500.2500 ####[facility] [address] [place], [address] Urea nitrogen [Mass/Vol] 26 mg/dL High 7-18 [facility] Comment on above: Performed By: #### L 100.0100, L500.2500 ####[facility] [address] [place], [address] CBC W/Diff, Automatedon 10-2 5-2024 PATH REV Reviewed Normal [facility] Comment on above: Result Comment: Abso lute lymphocytosis suggestive of low grade lympho-proliferative disorder.Clinical correlation is necessary.Macrocytic anemia.Prashanth Machado M.D. 02/06/24 AMENDED REPORT 02/06/24 1549 PATH REV previously reported as: August Performed By: #### L 100.0100, L500.2500 ####[facility] [address] [place], [address] Basic Metabolic Profile (BMP )on 02-05-2024 BUN/CRE 17.8 RATIO Normal 01-31 [facility] Comment on above: Performed By: #### L 500.2500, L100.0100 ####[facility] [address] [place], [address] CA,Total 9.9 mg/dL Normal 8.5-10.1 [facility] Comment on above: Performed By: #### L 500.2500, L100.0100 ####[facility] [address] [place], [address] Chloride [Moles/Vol] 104 mmol/L Normal 98-107 [facility] Comment on above: Performed By: #### L 500.2500, L100.0100 ####[facility] [address] [place], [address] CO2 [Moles/Vol] 29.0 mmol/L Normal 21.0-32.0 [facility] Comment on above: Performed By: #### L 500.2500, L100.0100 ####[facility] [address] [place], [address] Creatinine [Mass/Vol] 2.02 mg/dL High 0.70-1.30 [facility] Comment on above: Result Comment: The validity of the calculated GFR GFRAA in patients over70 years has not been determined. Clinical correlation isessential. Performed By: #### L 500.2500, L100.0100 ####[facility] [address] [place], [address] ECRCL 34.03 ml/min Normal [facility] Comment on above: Performed By: #### L 500.2500, L100.0100 ####[facility] [address] [place], [address] EST GFR - AA 42 mL/min Low >60 [facility] Comment on above: Result Comment: Afri can Italian GFR Calc Performed By: #### L 500.2500, L100.0100 ####[facility] [address] [place], [address] GAP 4 Low 5-15 [facility] Comment on above: Performed By: #### L 500.2500, L100.0100 ####[facility] [address] [place], [address] GFR/1.73 sq M.predicted among non-blacks MDRD (S/P/Bld) [Vol rate/Area] 35 mL/min/{1.73_m2} Low >60 [facility] Comment on above: Result Comment: Non- GFR Calc Performed By: #### L 500.2500, L100.0100 ####[facility] [address] [place], [address] Glucose [Mass/Vol] 97 mg/dL Normal 74-106 [facility] Comment on above: Performed By: #### L 500.2500, L100.0100 ####[facility] [address] [place], [address] Potassium [Moles/Vol] 4.6 mmol/L Normal 3.5-5.1 [facility] Comment on above: Performed By: #### L 500.2500, L100.0100 ####[facility] [address] [place], [address] Sodium [Moles/Vol] 137 mmol/L Normal 136-145 [facility] Comment on above: Performed By: #### L 500.2500, L100.0100 ####[facility] [address] [place], [address] Urea nitrogen [Mass/Vol] 36 mg/dL High 7-18 [facility] Comment on above: Performed By: #### L 500.2500, L100.0100 ####[facility] [address] [place], [address] CBC W/Diff, Automatedon 10- SMEAR COMMENT SCANNED Normal [facility] Comment on above: Performed By: #### L 500.2500, L100.0100 ####[facility] [address] [place], [address] BRCon 02-04-2024 RC Normal [facility] Comment on above: Result Comment: [id number] BP RC TRANSFUSED 02/04/24 0656 Performed By: #### B TS, BR ####[facility] [address] [place], [address] Basic Metabolic Profile (BMP )on 02-04-2024 BUN/CRE 13.3 RATIO Normal 10-20 [facility] Comment on above: Performed By: #### L 100.0100, L500.2500 ####[facility] [address] [place], [address] CA,Total 9.4 mg/dL Normal 8.5-10.1 [facility] Comment on above: Performed By: #### L 100.0100, L500.2500 ####[facility] [address] [place], [address] Chloride [Moles/Vol] 106 mmol/L Normal 98-107 [facility] Comment on above: Performed By: #### L 100.0100, L500.2500 ####[facility] [address] [place], [address] CO2 [Moles/Vol] 26.0 mmol/L Normal 21.0-32.0 [facility] Comment on above: Performed By: #### L 100.0100, L500.2500 ####[facility] [address] [place], [address] Creatinine [Mass/Vol] 2.10 mg/dL High 0.70-1.30 [facility] Comment on above: Result Comment: The validity of the calculated GFR GFRAA in patients over70 years has not been determined. Clinical correlation isessential. Performed By: #### L 100.0100, L500.2500 ####[facility] [address] [place], [address] ECRCL 32.73 ml/min Normal [facility] Comment on above: Performed By: #### L 100.0100, L500.2500 ####[facility] [address] [place], [address] EST GFR - AA 40 mL/min Low >60 [facility] Comment on above: Result Comment: Afri can Italian GFR Calc Performed By: #### L 100.0100, L500.2500 ####[facility] [address] [place], [address] GAP 5 Normal 5-15 [facility] Comment on above: Performed By: #### L 100.0100, L500.2500 ####[facility] [address] [place], [address] GFR/1.73 sq M.predicted among non-blacks MDRD (S/P/Bld) [Vol rate/Area] 33 mL/min/{1.73_m2} Low >60 [facility] Comment on above: Result Comment: Non- GFR Calc Performed By: #### L 100.0100, L500.2500 ####[facility] [address] [place], [address] Glucose [Mass/Vol] 122 mg/dL High 74-106 [facility] Comment on above: Result Comment: Fast ing Glucose result from 100 to 125 mg/dLsuggests IMPAIRED HOMEOSTASIS per A.D.A. criteria. Performed By: #### L 100.0100, L500.2500 ####[facility] [address] [place], [address] Potassium [Moles/Vol] 4.8 mmol/L Normal 3.5-5.1 [facility] Comment on above: Result Comment: Slig ht Hemolysis, Result may be falsely increased. Performed By: #### L 100.0100, L500.2500 ####[facility] [address] [place], [address] Sodium [Moles/Vol] 137 mmol/L Normal 136-145 [facility] Comment on above: Performed By: #### L 100.0100, L500.2500 ####[facility] [address] [place], [address] Urea nitrogen [Mass/Vol] 28 mg/dL High 7-18 [facility] Comment on above: Performed By: #### L 100.0100, L500.2500 ####[facility] [address] [place], [address] CBC W/Diff, Automatedon 01-13 PATH REV Reviewed Normal [facility] Comment on above: Result Comment: Abso lute lymphocytosis suggestive of low grade lympho-proliferative disorder.Clinical correlation is necessary.SEVERE Macrocytic anemia.Prashanth Machado M.D. 02/04/24 AMENDED REPORT 02/04/24 1407 PATH REV previously reported as: August kathe Performed By: #### L 100.0100, L500.2500 ####[facility] [address] [place], [address] Hemoglobinon 02-04-2024 Hemoglobin (Bld) [Mass/Vol] 8.3 g/dL Low 13.0-16.5 [facility] Comment on above: Performed By: #### L 100.1300 ####[facility] [address] [place], [place], [address] Type AND Screenon 02-04-2024 ABO and Rh group Nom (Bld) Blood group B Rh(D) positive Normal [facility] Comment on above: Order Comment: CMV N EG? NNumber of units to transfuse: 1Reason for Ordering Blood: AcuteAre the blood/blood products to be transfused? YIs the patient having/had surgery? YWhen ReadyNY Performed By: #### B , [facility] ####[facility] [address] [place], [place], [address] Decalcification bone/plaqueo n 02-03-2024 Decalcification bone/plaque Normal [facility] Comment on above: Performed By: #### P DEC ####[facility] [address] [place], [place], [address] MR/POSTOP.ANEon 02-03-2024 MR/POSTOP.ANE Normal [facility] MR/[id number] 02-03-2024 MR/POSTOPAN2 Normal [facility] Operative Reporton Operative Report Normal [facility] Miscellaneous Lab Procedureo n 01-27-2024 [facility] [place] TEST Normal [facility] Comment on above: Order Comment: STOOL CX [id number] CX [id number] Result Comment: Stoo l Culture Final ReportSalmonella/Shigella Screen No Salmonella/Shigella isolated.Campylobacter Culture No Campylobacter isolated.E coli Shiga Toxin EIA Negative [facility] ORIGINAL REPORT ON FILE IN LAB CONTAINS ADDITIONAL TEST SITE INFORMATION. ____ Performed By: #### M 100.6796, L801.1541, M100.2000, M100.0605, M100.6795 ####[facility] [address] [place], [address] CBC W/Diff, Automatedon 10-1 PATH REV Reviewed Normal [facility] Comment on above: Order Comment: cc: c mp and cbc to and dr. boyer Result Comment: ABSO LUTE LYMPHOCYTOSIS CONSISTENT WITH CLLMacrocytic anemia.Clinical correlation necessary.Prashanth Machado M.D. 01/23/24 AMENDED REPORT 01/23/24 1318 PATH REV previously reported as: August Performed By: #### L 500.4050, L100.0100, L501.5200 ####[facility] [address] [place], [address] CBC W/Diff, Automatedon 10-1 Absolute Neut Normal 2.0-7.7 [facility] Comment on above: Result Comment: DR. OROZCO ORDERED CMP AND CBCD Performed By: #### L 500.4050, L100.0100 ####[facility] [address] [place], [address] HCT Normal 40-54 [facility] Comment on above: Result Comment: DR. OROZCO ORDERED CMP AND CBCD Performed By: #### L 500.4050, L100.0100 ####[facility] [address] [place], [address] HGB Normal 13.0-16.5 [facility] Comment on above: Result Comment: DR. OROZCO ORDERED CMP AND CBCD Performed By: #### L 500.4050, L100.0100 ####[facility] [address] [place], [address] MCH Normal 27.0-32.0 [facility] Comment on above: Result Comment: DR. OROZCO ORDERED CMP AND CBCD Performed By: #### L 500.4050, L100.0100 ####[facility] [address] [place], [address] MCHC Normal 32-36 [facility] Comment on above: Result Comment: DR. OROZCO ORDERED CMP AND CBCD Performed By: #### L 500.4050, L100.0100 ####[facility] [address] [place], [address] MCV Normal 80-94 [facility] Comment on above: Result Comment: DR. OROZCO ORDERED CMP AND CBCD Performed By: #### L 500.4050, L100.0100 ####[facility] [address] [place], [address] NEUT% Normal 47-70 [facility] Comment on above: Result Comment: DR. OROZCO ORDERED CMP AND CBCD Performed By: #### L 500.4050, L100.0100 ####[facility] [address] [place], [address] PLT Normal 150-450 [facility] Comment on above: Result Comment: DR. OROZCO ORDERED CMP AND CBCD Performed By: #### L 500.4050, L100.0100 ####[facility] [address] [place], [address] RBC Normal 4.6-6.2 [facility] Comment on above: Result Comment: DR. OROZCO ORDERED CMP AND CBCD Performed By: #### L 500.4050, L100.0100 ####[facility] [address] [place], [address] RDW CV Normal 11.6-14.6 [facility] Comment on above: Result Comment: DR. OROZCO ORDERED CMP AND CBCD Performed By: #### L 500.4050, L100.0100 ####[facility] [address] [place], [address] RDW SD Normal 35.1-43.9 [facility] Comment on above: Result Comment: DR. OROZCO ORDERED CMP AND CBCD Performed By: #### L 500.4050, L100.0100 ####[facility] [address] [place], [address] WBC Normal 4.4-11.0 [facility] Comment on above: Result Comment: DR. OROZCO ORDERED CMP AND CBCD Performed By: #### L 500.4050, L100.0100 ####[facility] [address] [place], [address] Comprehensive Metabolic Prof ilon 01-22-2024 Albumin [Mass/Vol] 3.2 g/dL Normal 3.2-5.0 [facility] Comment on above: Order Comment: cc: c mp and cbc to and dr. boyer Performed By: #### L 500.4050, L100.0100, L501.5200 ####[facility] [address] [place], [address] Albumin/Globulin [Mass ratio] 0.9 {ratio} Normal 0.9-2.4 [facility] Comment on above: Order Comment: cc: c mp and cbc to and dr. boyer Performed By: #### L 500.4050, L100.0100, L501.5200 ####[facility] [address] [place], [address] ALK P 106 U/L Normal 45-117 [facility] Comment on above: Order Comment: cc: c mp and cbc to and dr. boyer Performed By: #### L 500.4050, L100.0100, L501.5200 ####[facility] [address] [place], [address] ALT [Catalytic activity/Vol] 17 U/L Normal 16-61 [facility] Comment on above: Order Comment: cc: c mp and cbc to and dr. boyer Performed By: #### L 500.4050, L100.0100, L501.5200 ####[facility] [address] [place], [address] AST [Catalytic activity/Vol] 16 U/L Normal 15-37 [facility] Comment on above: Order Comment: cc: c mp and cbc to and dr. boyer Performed By: #### L 500.4050, L100.0100, L501.5200 ####[facility] [address] [place], [address] Bilirubin [Mass/Vol] 0.40 mg/dL Normal 0.20-1.00 [facility] Comment on above: Order Comment: cc: c mp and cbc to and dr. boyer Result Comment: For patients on eltrombopag therapy, use of Dimension Lamar TBIL is not recommended. Performed By: #### L 500.4050, L100.0100, L501.5200 ####[facility] [address] [place], [address] BUN/CRE 11.9 RATIO Normal 10-20 [facility] Comment on above: Order Comment: cc: c mp and cbc to and dr. boyer Performed By: #### L 500.4050, L100.0100, L501.5200 ####[facility] [address] [place], [address] CA,Total 9.0 mg/dL Normal 8.5-10.1 [facility] Comment on above: Order Comment: cc: c mp and cbc to and dr. boyer Performed By: #### L 500.4050, L100.0100, L501.5200 ####[facility] [address] [place], [address] Chloride [Moles/Vol] 104 mmol/L Normal 98-107 [facility] Comment on above: Order Comment: cc: c mp and cbc to and dr. boyer Performed By: #### L 500.4050, L100.0100, L501.5200 ####[facility] [address] [place], [address] CO2 [Moles/Vol] 23.0 mmol/L Normal 21.0-32.0 [facility] Comment on above: Order Comment: cc: c mp and cbc to and dr. boyer Performed By: #### L 500.4050, L100.0100, L501.5200 ####[facility] [address] [place], [address] Creatinine [Mass/Vol] 2.01 mg/dL High 0.70-1.30 [facility] Comment on above: Order Comment: cc: c mp and cbc to and dr. boyer Result Comment: The validity of the calculated GFR GFRAA in patients over70 years has not been determined. Clinical correlation isessential. Performed By: #### L 500.4050, L100.0100, L501.5200 ####[facility] [address] [place], [address] EST GFR - AA 42 mL/min Low >60 [facility] Comment on above: Order Comment: cc: c mp and cbc to and dr. boyer Result Comment: Afri can Italian GFR Calc Performed By: #### L 500.4050, L100.0100, L501.5200 ####[facility] [address] [place], [address] GAP 10 Normal 5-15 [facility] Comment on above: Order Comment: cc: c mp and cbc to and dr. boyer Performed By: #### L 500.4050, L100.0100, L501.5200 ####[facility] [address] [place], [address] GFR/1.73 sq M.predicted among non-blacks MDRD (S/P/Bld) [Vol rate/Area] 35 mL/min/{1.73_m2} Low >60 [facility] Comment on above: Order Comment: cc: c mp and cbc to and dr. boyer Result Comment: Non- GFR Calc Performed By: #### L 500.4050, L100.0100, L501.5200 ####[facility] [address] [place], [address] Globulin (S) [Mass/Vol] 3.7 g/dL Normal 2.2-4.2 [facility] Comment on above: Order Comment: cc: c mp and cbc to and dr. boyer Performed By: #### L 500.4050, L100.0100, L501.5200 ####[facility] [address] [place], [address] Glucose [Mass/Vol] 108 mg/dL High 74-106 [facility] Comment on above: Order Comment: cc: c mp and cbc to and dr. boyer Result Comment: Fast ing Glucose result from 100 to 125 mg/dLsuggests IMPAIRED HOMEOSTASIS per A.D.A. criteria. Performed By: #### L 500.4050, L100.0100, L501.5200 ####[facility] [address] [place], [address] Potassium [Moles/Vol] 4.2 mmol/L Normal 3.5-5.1 [facility] Comment on above: Order Comment: cc: c mp and cbc to and dr. boyer Performed By: #### L 500.4050, L100.0100, L501.5200 ####[facility] [address] [place], [address] Sodium [Moles/Vol] 136 mmol/L Normal 136-145 [facility] Comment on above: Order Comment: cc: c mp and cbc to and dr. boyer Performed By: #### L 500.4050, L100.0100, L501.5200 ####[facility] [address] [place], [address] T PROT 6.9 g/dL Normal 6.4-8.2 [facility] Comment on above: Order Comment: cc: c mp and cbc to and dr. boyer Performed By: #### L 500.4050, L100.0100, L501.5200 ####[facility] [address] [place], [address] Urea nitrogen [Mass/Vol] 24 mg/dL High 7-18 [facility] Comment on above: Order Comment: cc: c mp and cbc to and dr. boyer Performed By: #### L 500.4050, L100.0100, L501.5200 ####[facility] [address] [place], [address] ALB Normal 3.2-5.0 [facility] Comment on above: Result Comment: DR. OROZCO ORDERED CMP AND CBCD Performed By: #### L 500.4050, L100.0100 ####[facility] [address] [place], [address] ALK P Normal 45-117 [facility] Comment on above: Result Comment: DR. OROZCO ORDERED CMP AND CBCD Performed By: #### L 500.4050, L100.0100 ####[facility] [address] [place], [address] ALT Normal 16-61 [facility] Comment on above: Result Comment: DR. OROZCO ORDERED CMP AND CBCD Performed By: #### L 500.4050, L100.0100 ####[facility] [address] [place], [address] AST Normal 15-37 [facility] Comment on above: Result Comment: DR. OROZCO ORDERED CMP AND CBCD Performed By: #### L 500.4050, L100.0100 ####[facility] [address] [place], [address] BUN Normal 7-18 [facility] Comment on above: Result Comment: DR. OROZCO ORDERED CMP AND CBCD Performed By: #### L 500.4050, L100.0100 ####[facility] [address] [place], [address] BUN/CRE Normal 10-20 [facility] Comment on above: Result Comment: DR. OROZCO ORDERED CMP AND CBCD Performed By: #### L 500.4050, L100.0100 ####[facility] [address] [place], [address] CA,Total Normal 8.5-10.1 [facility] Comment on above: Result Comment: DR. OROZCO ORDERED CMP AND CBCD Performed By: #### L 500.4050, L100.0100 ####[facility] [address] [place], [address] CL Normal 98-107 [facility] Comment on above: Result Comment: DR. OROZCO ORDERED CMP AND CBCD Performed By: #### L 500.4050, L100.0100 ####[facility] [address] [place], [address] CO2 Normal 21.0-32.0 [facility] Comment on above: Result Comment: DR. OROZCO ORDERED CMP AND CBCD Performed By: #### L 500.4050, L100.0100 ####[facility] [address] [place], [address] CREAT,SERUM Normal 0.70-1.30 [facility] Comment on above: Result Comment: DR. OROZCO ORDERED CMP AND CBCD Performed By: #### L 500.4050, L100.0100 ####[facility] [address] [place], [address] EST GFR Normal >60 [facility] Comment on above: Result Comment: DR. OROZCO ORDERED CMP AND CBCD Performed By: #### L 500.4050, L100.0100 ####[facility] [address] [place], [address] EST GFR - AA Normal >60 [facility] Comment on above: Result Comment: DR. OROZCO ORDERED CMP AND CBCD Performed By: #### L 500.4050, L100.0100 ####[facility] [address] [place], [address] GAP Normal 5-15 [facility] Comment on above: Result Comment: DR. OROZCO ORDERED CMP AND CBCD Performed By: #### L 500.4050, L100.0100 ####[facility] [address] [place], [address] GLU Normal 74-106 [facility] Comment on above: Result Comment: DR. OROZCO ORDERED CMP AND CBCD Performed By: #### L 500.4050, L100.0100 ####[facility] [address] [place], [address] Potassium Normal 3.5-5.1 [facility] Comment on above: Result Comment: DR. OROZCO ORDERED CMP AND CBCD Performed By: #### L 500.4050, L100.0100 ####[facility] [address] [place], [address] T BILI Normal 0.20-1.00 [facility] Comment on above: Result Comment: DR. OROZCO ORDERED CMP AND CBCD Performed By: #### L 500.4050, L100.0100 ####[facility] [address] [place], [address] T PROT Normal 6.4-8.2 [facility] Comment on above: Result Comment: DR. OROZCO ORDERED CMP AND CBCD Performed By: #### L 500.4050, L100.0100 ####[facility] [address] [place], [address] Comprehensive Metabolic Profil Normal 136-145 [facility] Comment on above: Result Comment: DR. OROZCO ORDERED CMP AND CBCD Performed By: #### L 500.4050, L100.0100 ####[facility] [address] [place], [address] Magnesiumon 01-22-2024 Magnesium [Mass/Vol] 1.5 mg/dL Low 1.6-2.6 [facility] Comment on above: Order Comment: cc: c mp and cbc to and dr. boyer Performed By: #### L 500.4050, L100.0100, L501.5200 ####[facility] [address] [place], [address] Partial Thromboplast Timeon 01-22-2024 aPTT Coag (Bld) [Time] 38.2 s High 24.1-36.2 [facility] Comment on above: Performed By: #### L 300.3900, L300.4310 ####[facility] [address] [place], [address] Prothrombin Time w/INRon INR Coag (PPP) [Relative time] 1.8 {INR} Normal [facility] Comment on above: Performed By: #### L 300.3900, L300.4310 ####[facility] [address] [place], [address] PT Coag (PPP) [Time] 20.5 s High 11.7-14.9 [facility] Comment on above: Performed By: #### L 300.3900, L300.4310 ####[facility] [address] [place], [address] Type AND Screen - PAT ONLYon 01-22-2024 ABO and Rh group Nom (Bld) Blood group B Rh(D) positive Normal [facility] Comment on above: Order Comment: Reaso n for Laboratory Test [id number]/ANNSFEMORAL ENDARTECECTOMY Performed By: #### B TSPAT ####[facility] [address] [place], [address] CBC W/Diff, Automatedon 10-0 PATH REV Reviewed Normal [facility] Comment on above: Result Comment: Abso lute lymphocytosis suggestive of low grade lympho-proliferative disorder.Clinical correlation is necessary.Macrocytic anemia.Prashanth Machado M.D. 01/19/24 AMENDED REPORT 01/19/24 1355 PATH REV previously reported as: August Performed By: #### L 500.4050, L501.2450, L100.0100 ####[facility] [address] [place], [address] Gram Stainon 01-18-2024 GS ORDERED INCORRECTLY STOOL CULTURE IS EP PANEL results to Dr. Orozco/ EP PANEL Gram Stn Spec Normal [facility] Comment on above: Performed By: #### M 100.6796, L801.1541, M100.2000, M100.0605, M100.6795 ####[facility] [address] [place], [address] Urine Cultureon 01-18-2024 URC Normal [facility] Comment on above: Performed By: #### M 100.2200 ####[facility] [address] [place], [address] CDIFF (PCR)on 01-17-2024 CDIFF Normal [facility] Comment on above: Performed By: #### M 100.6796, L801.1541, M100.1999, M100.0605, M100.6795 ####[facility] [address] [place], [address] Clostridium Diff Toxin/Agon 01-17-2024 CDIFF (EIA) Normal [facility] Comment on above: Performed By: #### M 100.6796, L801.1541, M100.1999, M100.0605, M100.6795 ####[facility] [address] [place], [address] Stool Lactoferrin/WBCon WBCST Normal [facility] Comment on above: Performed By: #### M 100.6796, L801.1541, M100.1999, M100.0605, M100.6795 ####[facility] [address] [place], [address] Abdomen/Pelvis W IV Cont ONL Yon 01-16-2024 Abdomen/Pelvis W IV Cont ONLY Normal [facility] Comprehensive Metabolic Prof ilon 01-16-2024 Albumin [Mass/Vol] 3.0 g/dL Low 3.2-5.0 [facility] Comment on above: Performed By: #### L 500.4050, L501.2450, L100.0100 ####[facility] [address] [place], [address] Albumin/Globulin [Mass ratio] 1.0 {ratio} Normal 0.9-2.4 [facility] Comment on above: Performed By: #### L 500.4050, L501.2450, L100.0100 ####[facility] [address] [place], [address] ALK P 94 U/L Normal 45-117 [facility] Comment on above: Performed By: #### L 500.4050, L501.2450, L100.0100 ####[facility] [address] [place], [address] ALT [Catalytic activity/Vol] 13 U/L Low 16-61 [facility] Comment on above: Performed By: #### L 500.4050, L501.2450, L100.0100 ####[facility] [address] [place], [address] AST [Catalytic activity/Vol] 16 U/L Normal 15-37 [facility] Comment on above: Performed By: #### L 500.4050, L501.2450, L100.0100 ####[facility] [address] [place], [address] Bilirubin [Mass/Vol] 0.40 mg/dL Normal 0.20-1.00 [facility] Comment on above: Result Comment: For patients on eltrombopag therapy, use of Dimension Lamar TBIL is not recommended. Performed By: #### L 500.4050, L501.2450, L100.0100 ####[facility] [address] [place], [address] BUN/CRE 13.7 RATIO Normal 10-20 [facility] Comment on above: Performed By: #### L 500.4050, L501.2450, L100.0100 ####[facility] [address] [place], [address] CA,Total 8.1 mg/dL Low 8.5-10.1 [facility] Comment on above: Performed By: #### L 500.4050, L501.2450, L100.0100 ####[facility] [address] [place], [address] Chloride [Moles/Vol] 108 mmol/L High 98-107 [facility] Comment on above: Performed By: #### L 500.4050, L501.2450, L100.0100 ####[facility] [address] [place], [address] CO2 [Moles/Vol] 24.0 mmol/L Normal 21.0-32.0 [facility] Comment on above: Performed By: #### L 500.4050, L501.2450, L100.0100 ####[facility] [address] [place], [address] Creatinine [Mass/Vol] 1.53 mg/dL High 0.70-1.30 [facility] Comment on above: Result Comment: The validity of the calculated GFR GFRAA in patients over70 years has not been determined. Clinical correlation isessential. Performed By: #### L 500.4050, L501.2450, L100.0100 ####[facility] [address] [place], [address] ECRCL 50.42 ml/min Normal [facility] Comment on above: Performed By: #### L 500.4050, L501.2450, L100.0100 ####[facility] [address] [place], [address] EST GFR - AA 58 mL/min Low >60 [facility] Comment on above: Result Comment: Afri can Italian GFR Calc Performed By: #### L 500.4050, L501.2450, L100.0100 ####[facility] [address] [place], [address] GAP 5 Normal 5-15 [facility] Comment on above: Performed By: #### L 500.4050, L501.2450, L100.0100 ####[facility] [address] [place], [address] GFR/1.73 sq M.predicted among non-blacks MDRD (S/P/Bld) [Vol rate/Area] 48 mL/min/{1.73_m2} Low >60 [facility] Comment on above: Result Comment: Non- GFR Calc Performed By: #### L 500.4050, L501.2450, L100.0100 ####[facility] [address] [place], [address] Globulin (S) [Mass/Vol] 3.0 g/dL Normal 2.2-4.2 [facility] Comment on above: Performed By: #### L 500.4050, L501.2450, L100.0100 ####[facility] [address] [place], [address] Glucose [Mass/Vol] 101 mg/dL Normal 74-106 [facility] Comment on above: Result Comment: Fast ing Glucose result from 100 to 125 mg/dLsuggests IMPAIRED HOMEOSTASIS per A.D.A. criteria. Performed By: #### L 500.4050, L501.2450, L100.0100 ####[facility] [address] [place], [address] Potassium [Moles/Vol] 4.1 mmol/L Normal 3.5-5.1 [facility] Comment on above: Performed By: #### L 500.4050, L501.2450, L100.0100 ####[facility] [address] [place], [address] Sodium [Moles/Vol] 138 mmol/L Normal 136-145 [facility] Comment on above: Performed By: #### L 500.4050, L501.2450, L100.0100 ####[facility] [address] [place], [address] T PROT 6.0 g/dL Low 6.4-8.2 [facility] Comment on above: Performed By: #### L 500.4050, L501.2450, L100.0100 ####[facility] [address] [place], [address] Urea nitrogen [Mass/Vol] 21 mg/dL High 7-18 [facility] Comment on above: Performed By: #### L 500.4050, L501.2450, L100.0100 ####[facility] [address] [place], [address] Emergency Department Summary on 01-16-2024 Emergency Department Summary Normal [facility] Lipaseon 01-16-2024 Lipase [Catalytic activity/Vol] 43 U/L Normal 13-75 [facility] Comment on above: Result Comment: Susan conway note:LIPASE revised reference range effective 22.New Lipase methodology. Expected to produce lower valuesthan the previous assay method.NEW Reference Range: 13 - 75 U/L Performed By: #### L 500.4050, L501.2450, L100.0100 ####[facility] [address] [place], [address] Urinalysis, Completeon 01-15 BACTERIA 2+ /hpf Normal None Seen [facility] Comment on above: Order Comment: CLEAN CATCH Performed By: #### L 400.0001 ####[facility] [address] [place], [address] WBC 0-5 SEEN Normal 0-5 [facility] Comment on above: Order Comment: CLEAN CATCH Performed By: #### L 400.0001 ####[facility] [address] [place], [address] EPI,SQUAMOUS 0 SEEN Normal 0-5 [facility] Comment on above: Order Comment: CLEAN CATCH Performed By: #### L 400.0001 ####[facility] [address] [place], [address] Mucus Ql (Urine sed) 0 SEEN Normal [facility] Comment on above: Order Comment: CLEAN CATCH Performed By: #### L 400.0001 ####[facility] [address] [place], [address] RBC 0 SEEN Normal 0-5 [facility] Comment on above: Order Comment: CLEAN CATCH Performed By: #### L 400.0001 ####[facility] [address] [place], [address] CBC W/Diff, Automatedon 10-0 PATH REV Reviewed Normal [facility] Comment on above: Result Comment: Abso lute lymphocytosis suggestive of low grade lympho-proliferative disorder.Clinical correlation is necessary.Macrocytic anemia.Prashanth Machado M.D. 01/13/24 AMENDED REPORT 01/13/24 1505 PATH REV previously reported as: August Performed By: #### L 501.9520, L506.1000, L501.5200, L500.4050, L501.9910, L100.0100 ####[facility] [address] [place], [address] 12 Lead EKGon 01-12-2024 12 Lead EKG Normal [facility] 12 Lead EKG Normal [facility] Chest PA and Lateralon 01-11 Chest PA and Lateral Normal [facility] Comprehensive Metabolic Prof ilon 01-12-2024 Albumin [Mass/Vol] 3.2 g/dL Normal 3.2-5.0 [facility] Comment on above: Performed By: #### L 501.9520, L506.1000, L501.5200, L500.4050, L501.9910, L100.0100 ####[facility] [address] [place], [address] Albumin/Globulin [Mass ratio] 0.9 {ratio} Normal 0.9-2.4 [facility] Comment on above: Performed By: #### L 501.9520, L506.1000, L501.5200, L500.4050, L501.9910, L100.0100 ####[facility] [address] [place], [address] ALK P 101 U/L Normal 45-117 [facility] Comment on above: Performed By: #### L 501.9520, L506.1000, L501.5200, L500.4050, L501.9910, L100.0100 ####[facility] [address] [place], [address] ALT [Catalytic activity/Vol] 15 U/L Low 16-61 [facility] Comment on above: Performed By: #### L 501.9520, L506.1000, L501.5200, L500.4050, L501.9910, L100.0100 ####[facility] [address] [place], [address] AST [Catalytic activity/Vol] 13 U/L Low 15-37 [facility] Comment on above: Performed By: #### L 501.9520, L506.1000, L501.5200, L500.4050, L501.9910, L100.0100 ####[facility] [address] [place], [address] Bilirubin [Mass/Vol] 0.50 mg/dL Normal 0.20-1.00 [facility] Comment on above: Result Comment: For patients on eltrombopag therapy, use of Dimension Lamar TBIL is not recommended. Performed By: #### L 501.9520, L506.1000, L501.5200, L500.4050, L501.9910, L100.0100 ####[facility] [address] [place], [address] BUN/CRE 14.3 RATIO Normal 10-20 [facility] Comment on above: Performed By: #### L 501.9520, L506.1000, L501.5200, L500.4050, L501.9910, L100.0100 ####[facility] [address] [place], [address] CA,Total 7.2 mg/dL Low 8.5-10.1 [facility] Comment on above: Performed By: #### L 501.9520, L506.1000, L501.5200, L500.4050, L501.9910, L100.0100 ####[facility] [address] [place], [address] Chloride [Moles/Vol] 108 mmol/L High 98-107 [facility] Comment on above: Performed By: #### L 501.9520, L506.1000, L501.5200, L500.4050, L501.9910, L100.0100 ####[facility] [address] [place], [address] CO2 [Moles/Vol] 22.0 mmol/L Normal 21.0-32.0 [facility] Comment on above: Performed By: #### L 501.9520, L506.1000, L501.5200, L500.4050, L501.9910, L100.0100 ####[facility] [address] [place], [address] Creatinine [Mass/Vol] 1.89 mg/dL High 0.70-1.30 [facility] Comment on above: Result Comment: The validity of the calculated GFR GFRAA in patients over70 years has not been determined. Clinical correlation isessential. Performed By: #### L 501.9520, L506.1000, L501.5200, L500.4050, L501.9910, L100.0100 ####[facility] [address] [place], [address] EST GFR - AA 46 mL/min Low >60 [facility] Comment on above: Result Comment: Afri can Italian GFR Calc Performed By: #### L 501.9520, L506.1000, L501.5200, L500.4050, L501.9910, L100.0100 ####[facility] [address] [place], [address] GAP 12 Normal 5-15 [facility] Comment on above: Performed By: #### L 501.9520, L506.1000, L501.5200, L500.4050, L501.9910, L100.0100 ####[facility] [address] [place], [address] GFR/1.73 sq M.predicted among non-blacks MDRD (S/P/Bld) [Vol rate/Area] 38 mL/min/{1.73_m2} Low >60 [facility] Comment on above: Result Comment: Non- GFR Calc Performed By: #### L 501.9520, L506.1000, L501.5200, L500.4050, L501.9910, L100.0100 ####[facility] [address] [place], [address] Globulin (S) [Mass/Vol] 3.4 g/dL Normal 2.2-4.2 [facility] Comment on above: Performed By: #### L 501.9520, L506.1000, L501.5200, L500.4050, L501.9910, L100.0100 ####[facility] [address] [place], [address] Glucose [Mass/Vol] 104 mg/dL Normal 74-106 [facility] Comment on above: Result Comment: Fast ing Glucose result from 100 to 125 mg/dLsuggests IMPAIRED HOMEOSTASIS per A.D.A. criteria. Performed By: #### L 501.9520, L506.1000, L501.5200, L500.4050, L501.9910, L100.0100 ####[facility] [address] [place], [address] Potassium [Moles/Vol] 4.0 mmol/L Normal 3.5-5.1 [facility] Comment on above: Performed By: #### L 501.9520, L506.1000, L501.5200, L500.4050, L501.9910, L100.0100 ####[facility] [address] [place], [address] Sodium [Moles/Vol] 142 mmol/L Normal 136-145 [facility] Comment on above: Performed By: #### L 501.9520, L506.1000, L501.5200, L500.4050, L501.9910, L100.0100 ####[facility] [address] [place], [address] T PROT 6.6 g/dL Normal 6.4-8.2 [facility] Comment on above: Performed By: #### L 501.9520, L506.1000, L501.5200, L500.4050, L501.9910, L100.0100 ####[facility] [address] [place], [address] Urea nitrogen [Mass/Vol] 27 mg/dL High 7-18 [facility] Comment on above: Performed By: #### L 501.9520, L506.1000, L501.5200, L500.4050, L501.9910, L100.0100 ####[facility] [address] [place], [address] Emergency Department Summary on 01-12-2024 Emergency Department Summary Normal [facility] L501.4020on 01-12-2024 TROPONIN-I HS 10 pg/mL Normal 3.0-78.0 [facility] Comment on above: Order Comment: 'TROP ' Serial specimen #1, #2 or #3: 1 Result Comment: Plea se Note: New Test Units and Gender Specific Reference Ranges. For more information see Policy Stat Procedure Lamar High Sensitivity Troponin (TNIH) and attachments. Performed By: #### L 501.4020, L501.2300 ####[facility] [address] [place], [address] Magnesiumon 01-12-2024 Magnesium [Mass/Vol] 1.0 mg/dL Low 1.6-2.6 [facility] Comment on above: Performed By: #### L 501.5200 ####[facility] [address] [place], [address] Magnesium [Mass/Vol] 0.6 mg/dL Invalid Interpretation Code 1.6-2.6 [facility] Comment on above: Result Comment: Crit ical Result(s) Called at: 14:51:21 01/12/2024 by: CAIN Cooper. Results read back by same. Performed By: #### L 501.9520, L506.1000, L501.5200, L500.4050, L501.9910, L100.0100 ####[facility] [address] [place], [address] PSA,Total - Annual Screenon 01-12-2024 PSA,TOT SCREEN 5.50 ng/mL High 0.00-4.00 [facility] Comment on above: Result Comment: This test was performed using the TPSA assay method for [employer] chemistry system. Values obtained with differentassay methods cannot be used interchangably.When changing PSA assays in the course of monitoring apatient, additional sequential testing should be carriedout to confirm baseline values. Performed By: #### L 501.9520, L506.1000, L501.5200, L500.4050, L501.9910, L100.0100 ####[facility] [address] [place], [address] Phosphoruson 01-12-2024 Phosphate [Mass/Vol] 2.5 mg/dL Normal 2.5-4.9 [facility] Comment on above: Order Comment: 'TROP ' Serial specimen #1, #2 or #3: 1 Performed By: #### L 501.4020, L501.2300 ####[facility] [address] [place], [address] Thyroid Stim Hormone (TSH)on 01-12-2024 TSH 0.616 uIU/mL Normal 0.358-3.740 [facility] Comment on above: Performed By: #### L 501.9520, L506.1000, L501.5200, L500.4050, L501.9910, L100.0100 ####[facility] [address] [place], [address] Vitamin D,25 Hydroxyon 01-11 Vitamin D 25-OH 50.6 ng/mL Normal [facility] Comment on above: Result Comment: Mila min D 25(OH) Status Range Deficiency <20 ng/mL (50nmol/L) Insufficiency 20 - 30 ng/mL (50 - 75 nmol/L) Sufficiency 30 - 100 ng/mL (75 - 250 nmol/L) Toxicity >100 ng/mL (>250 nmol/L) Performed By: #### L 501.9520, L506.1000, L501.5200, L500.4050, L501.9910, L100.0100 ####[facility] [address] [place], [address] MR/BMS.BVSon 01-01-2024 MR/BMS.BVS Normal [facility] Magnesiumon 12-25-2023 Magnesium [Mass/Vol] 1.1 mg/dL Low 1.6-2.6 [facility] Comment on above: Performed By: #### L 500.3600, L506.1000, L501.5200, L509.1000 ####[facility] [address] [place], [address] PTHINon 12-25-2023 PTH 69.5 pg/mL Normal 18.4-80.1 [facility] Comment on above: Performed By: #### L 500.3600, L506.1000, L501.5200, L509.1000 ####[facility] [address] [place], [address] Renal Profileon 12-25-2023 Albumin [Mass/Vol] 3.6 g/dL Normal 3.2-5.0 [facility] Comment on above: Performed By: #### L 500.3600, L506.1000, L501.5200, L509.1000 ####[facility] [address] [place], [address] BUN/CRE 25.8 RATIO High 10-20 [facility] Comment on above: Performed By: #### L 500.3600, L506.1000, L501.5200, L509.1000 ####[facility] [address] [place], [address] CA,Total 8.1 mg/dL Low 8.5-10.1 [facility] Comment on above: Performed By: #### L 500.3600, L506.1000, L501.5200, L509.1000 ####[facility] [address] [place], [address] Chloride [Moles/Vol] 109 mmol/L High 98-107 [facility] Comment on above: Performed By: #### L 500.3600, L506.1000, L501.5200, L509.1000 ####[facility] [address] [place], [address] CO2 [Moles/Vol] 20.0 mmol/L Low 21.0-32.0 [facility] Comment on above: Performed By: #### L 500.3600, L506.1000, L501.5200, L509.1000 ####[facility] [address] [place], [address] Creatinine [Mass/Vol] 1.59 mg/dL High 0.70-1.30 [facility] Comment on above: Result Comment: The validity of the calculated GFR GFRAA in patients over70 years has not been determined. Clinical correlation isessential. Performed By: #### L 500.3600, L506.1000, L501.5200, L509.1000 ####[facility] [address] [place], [address] EST GFR - AA 56 mL/min Low >60 [facility] Comment on above: Result Comment: Afri can Italian GFR Calc Performed By: #### L 500.3600, L506.1000, L501.5200, L509.1000 ####[facility] [address] [place], [address] GFR/1.73 sq M.predicted among non-blacks MDRD (S/P/Bld) [Vol rate/Area] 46 mL/min/{1.73_m2} Low >60 [facility] Comment on above: Result Comment: Non- GFR Calc Performed By: #### L 500.3600, L506.1000, L501.5200, L509.1000 ####[facility] [address] [place], [address] Glucose [Mass/Vol] 110 mg/dL High 74-106 [facility] Comment on above: Result Comment: Fast ing Glucose result from 100 to 125 mg/dLsuggests IMPAIRED HOMEOSTASIS per A.D.A. criteria. Performed By: #### L 500.3600, L506.1000, L501.5200, L509.1000 ####[facility] [address] [place], [address] Phosphate [Mass/Vol] 3.5 mg/dL Normal 2.5-4.9 [facility] Comment on above: Performed By: #### L 500.3600, L506.1000, L501.5200, L509.1000 ####[facility] [address] [place], [address] Potassium [Moles/Vol] 4.6 mmol/L Normal 3.5-5.1 [facility] Comment on above: Performed By: #### L 500.3600, L506.1000, L501.5200, L509.1000 ####[facility] [address] [place], [address] Sodium [Moles/Vol] 138 mmol/L Normal 136-145 [facility] Comment on above: Performed By: #### L 500.3600, L506.1000, L501.5200, L509.1000 ####[facility] [address] [place], [address] Urea nitrogen [Mass/Vol] 41 mg/dL High 7-18 [facility] Comment on above: Performed By: #### L 500.3600, L506.1000, L501.5200, L509.1000 ####[facility] [address] [place], [address] Vitamin D,25 Hydroxyon 12-24 Vitamin D 25-OH 36.6 ng/mL Normal [facility] Comment on above: Result Comment: Mila min D 25(OH) Status Range Deficiency <20 ng/mL (50nmol/L) Insufficiency 20 - 30 ng/mL (50 - 75 nmol/L) Sufficiency 30 - 100 ng/mL (75 - 250 nmol/L) Toxicity >100 ng/mL (>250 nmol/L) Performed By: #### L 500.3600, L506.1000, L501.5200, L509.1000 ####[facility] [address] [place], [address] CBC W/Diff, Automatedon - PATH REV Reviewed Normal [facility] Comment on above: Result Comment: Abso lute lymphocytosis suggestive of low grade lympho-proliferative disorder.Clinical correlation is necessary.Macrocytic anemia.Prashanth Machado M.D. 12/18/23 AMENDED REPORT 12/18/23 1015 PATH REV previously reported as: August kathe Performed By: #### L 503.6550, L100.0100, L500.4050, L503.6030 ####[facility] [address] [place], [address] Comprehensive Metabolic Prof ilon 12-17-2023 Albumin [Mass/Vol] 3.6 g/dL Normal 3.2-5.0 [facility] Comment on above: Performed By: #### L 503.6550, L100.0100, L500.4050, L503.6030 ####[facility] [address] [place], [address] Albumin/Globulin [Mass ratio] 1.3 {ratio} Normal 0.9-2.4 [facility] Comment on above: Performed By: #### L 503.6550, L100.0100, L500.4050, L503.6030 ####[facility] [address] [place], [address] ALK P 60 U/L Normal 45-117 [facility] Comment on above: Performed By: #### L 503.6550, L100.0100, L500.4050, L503.6030 ####[facility] [address] [place], [address] ALT [Catalytic activity/Vol] 39 U/L Normal 16-61 [facility] Comment on above: Performed By: #### L 503.6550, L100.0100, L500.4050, L503.6030 ####[facility] [address] [place], [address] AST [Catalytic activity/Vol] 23 U/L Normal 15-37 [facility] Comment on above: Performed By: #### L 503.6550, L100.0100, L500.4050, L503.6030 ####[facility] [address] [place], [address] Bilirubin [Mass/Vol] 0.50 mg/dL Normal 0.20-1.00 [facility] Comment on above: Result Comment: For patients on eltrombopag therapy, use of Dimension Lamar TBIL is not recommended. Performed By: #### L 503.6550, L100.0100, L500.4050, L503.6030 ####[facility] [address] [place], [address] BUN/CRE 21.7 RATIO High 10-20 [facility] Comment on above: Performed By: #### L 503.6550, L100.0100, L500.4050, L503.6030 ####[facility] [address] [place], [address] CA,Total 6.5 mg/dL Invalid Interpretation Code 8.5-10.1 [facility] Comment on above: Performed By: #### L 503.6550, L100.0100, L500.4050, L503.6030 ####[facility] [address] [place], [address] Chloride [Moles/Vol] 107 mmol/L Normal 98-107 [facility] Comment on above: Performed By: #### L 503.6550, L100.0100, L500.4050, L503.6030 ####[facility] [address] [place], [address] CO2 [Moles/Vol] 27.0 mmol/L Normal 21.0-32.0 [facility] Comment on above: Performed By: #### L 503.6550, L100.0100, L500.4050, L503.6030 ####[facility] [address] [place], [address] Creatinine [Mass/Vol] 1.98 mg/dL High 0.70-1.30 [facility] Comment on above: Result Comment: The validity of the calculated GFR GFRAA in patients over70 years has not been determined. Clinical correlation isessential. Performed By: #### L 503.6550, L100.0100, L500.4050, L503.6030 ####[facility] [address] [place], [address] ECRCL 39.54 ml/min Normal [facility] Comment on above: Performed By: #### L 503.6550, L100.0100, L500.4050, L503.6030 ####[facility] [address] [place], [address] EST GFR - AA 43 mL/min Low >60 [facility] Comment on above: Result Comment: Afri can Italian GFR Calc Performed By: #### L 503.6550, L100.0100, L500.4050, L503.6030 ####[facility] [address] [place], [address] GAP 6 Normal 5-15 [facility] Comment on above: Performed By: #### L 503.6550, L100.0100, L500.4050, L503.6030 ####[facility] [address] [place], [address] GFR/1.73 sq M.predicted among non-blacks MDRD (S/P/Bld) [Vol rate/Area] 36 mL/min/{1.73_m2} Low >60 [facility] Comment on above: Result Comment: Non- GFR Calc Performed By: #### L 503.6550, L100.0100, L500.4050, L503.6030 ####[facility] [address] [place], [address] Globulin (S) [Mass/Vol] 2.8 g/dL Normal 2.2-4.2 [facility] Comment on above: Performed By: #### L 503.6550, L100.0100, L500.4050, L503.6030 ####[facility] [address] [place], [address] Glucose [Mass/Vol] 95 mg/dL Normal 74-106 [facility] Comment on above: Performed By: #### L 503.6550, L100.0100, L500.4050, L503.6030 ####[facility] [address] [place], [address] Potassium [Moles/Vol] 4.7 mmol/L Normal 3.5-5.1 [facility] Comment on above: Performed By: #### L 503.6550, L100.0100, L500.4050, L503.6030 ####[facility] [address] [place], [address] Sodium [Moles/Vol] 140 mmol/L Normal 136-145 [facility] Comment on above: Performed By: #### L 503.6550, L100.0100, L500.4050, L503.6030 ####[facility] [address] [place], [address] T PROT 6.4 g/dL Normal 6.4-8.2 [facility] Comment on above: Performed By: #### L 503.6550, L100.0100, L500.4050, L503.6030 ####[facility] [address] [place], [address] Urea nitrogen [Mass/Vol] 43 mg/dL High 7-18 [facility] Comment on above: Performed By: #### L 503.6550, L100.0100, L500.4050, L503.6030 ####[facility] [address] [place], [address] Ferritinon 12-17-2023 Ferritin [Mass/Vol] 72 ng/mL Normal 26-388 [facility] Comment on above: Performed By: #### L 503.6550, L100.0100, L500.4050, L503.6030 ####[facility] [address] [place], [address] Iron+Iron Binding Capacityon 09-04-2024 Iron [Mass/Vol] 156 ug/dL Normal 65-175 [facility] Comment on above: Performed By: #### L 503.6550, L100.0100, L500.4050, L503.6030 ####[facility] [address] [place], [address] IRON SATURATION 47.3 Normal 15.0-55.0 [facility] Comment on above: Performed By: #### L 503.6550, L100.0100, L500.4050, L503.6030 ####[facility] [address] [place], [address] TIBC 330 ug/dL Normal 250-450 [facility] Comment on above: Performed By: #### L 503.6550, L100.0100, L500.4050, L503.6030 ####[facility] [address] [place], [address] Oncology Visit Reporton Oncology Visit Report Normal [facility] CTA Abd w/Runoff W/WO Contra ston 12-10-2023 CTA Abd w/Runoff W/WO Contrast Normal [facility] Basic Metabolic Profile (BMP )on 12-02-2023 BUN Normal -18 [facility] Comment on above: Result Comment: Canc elled via OM: Order cancelled - Patient discharged Performed By: #### L 500.2500, L100.0100 ####[facility] [address] [place], [address] BUN/CRE Normal 10-20 [facility] Comment on above: Result Comment: Canc elled via OM: Order cancelled - Patient discharged Performed By: #### L 500.2500, L100.0100 ####[facility] [address] [place], [address] CA,Total Normal 8.5-10.1 [facility] Comment on above: Result Comment: Canc elled via OM: Order cancelled - Patient discharged Performed By: #### L 500.2500, L100.0100 ####[facility] [address] [place], [address] CL Normal 98-107 [facility] Comment on above: Result Comment: Canc elled via OM: Order cancelled - Patient discharged Performed By: #### L 500.2500, L100.0100 ####[facility] [address] [place], [address] CO2 Normal 21.0-32.0 [facility] Comment on above: Result Comment: Canc elled via OM: Order cancelled - Patient discharged Performed By: #### L 500.2500, L100.0100 ####[facility] [address] [place], [address] CREAT,SERUM Normal 0.70-1.30 [facility] Comment on above: Result Comment: Canc elled via OM: Order cancelled - Patient discharged Performed By: #### L 500.2500, L100.0100 ####[facility] [address] [place], [address] EST GFR Normal >60 [facility] Comment on above: Result Comment: Canc elled via OM: Order cancelled - Patient discharged Performed By: #### L 500.2500, L100.0100 ####[facility] [address] [place], [address] EST GFR - AA Normal >60 [facility] Comment on above: Result Comment: Canc elled via OM: Order cancelled - Patient discharged Performed By: #### L 500.2500, L100.0100 ####[facility] [address] [place], [address] GAP Normal 5-15 [facility] Comment on above: Result Comment: Canc elled via OM: Order cancelled - Patient discharged Performed By: #### L 500.2500, L100.0100 ####[facility] [address] [place], [address] GLU Normal 74-106 [facility] Comment on above: Result Comment: Canc elled via OM: Order cancelled - Patient discharged Performed By: #### L 500.2500, L100.0100 ####[facility] [address] [place], [address] Potassium Normal 3.5-5.1 [facility] Comment on above: Result Comment: Canc elled via OM: Order cancelled - Patient discharged Performed By: #### L 500.2500, L100.0100 ####[facility] [address] [place], [address] Basic Metabolic Profile (BMP) Normal 136-145 [facility] Comment on above: Result Comment: Canc elled via OM: Order cancelled - Patient discharged Performed By: #### L 500.2500, L100.0100 ####[facility] [address] [place], [address] CBC W/Diff, Automatedon 08-2 0-2023 Absolute Neut Normal 2.0-7.7 [facility] Comment on above: Result Comment: Canc elled via OM: Order cancelled - Patient discharged Performed By: #### L 500.2500, L100.0100 ####[facility] [address] [place], [address] HCT Normal 40-54 [facility] Comment on above: Result Comment: Canc elled via OM: Order cancelled - Patient discharged Performed By: #### L 500.2500, L100.0100 ####[facility] [address] [place], [address] HGB Normal 13.0-16.5 [facility] Comment on above: Result Comment: Canc elled via OM: Order cancelled - Patient discharged Performed By: #### L 500.2500, L100.0100 ####[facility] [address] [place], [address] MCH Normal 27.0-32.0 [facility] Comment on above: Result Comment: Canc elled via OM: Order cancelled - Patient discharged Performed By: #### L 500.2500, L100.0100 ####[facility] [address] [place], [address] MCHC Normal 32-36 [facility] Comment on above: Result Comment: Canc elled via OM: Order cancelled - Patient discharged Performed By: #### L 500.2500, L100.0100 ####[facility] [address] [place], [address] MCV Normal 80-94 [facility] Comment on above: Result Comment: Canc elled via OM: Order cancelled - Patient discharged Performed By: #### L 500.2500, L100.0100 ####[facility] [address] [place], [address] NEUT% Normal 47-70 [facility] Comment on above: Result Comment: Canc elled via OM: Order cancelled - Patient discharged Performed By: #### L 500.2500, L100.0100 ####[facility] [address] [place], [address] PLT Normal 150-450 [facility] Comment on above: Result Comment: Canc elled via OM: Order cancelled - Patient discharged Performed By: #### L 500.2500, L100.0100 ####[facility] [address] [place], [address] RBC Normal 4.6-6.2 [facility] Comment on above: Result Comment: Canc elled via OM: Order cancelled - Patient discharged Performed By: #### L 500.2500, L100.0100 ####[facility] [address] [place], [address] RDW CV Normal 11.6-14.6 [facility] Comment on above: Result Comment: Canc elled via OM: Order cancelled - Patient discharged Performed By: #### L 500.2500, L100.0100 ####[facility] [address] [place], [address] RDW SD Normal 35.1-43.9 [facility] Comment on above: Result Comment: Canc elled via OM: Order cancelled - Patient discharged Performed By: #### L 500.2500, L100.0100 ####[facility] [address] [place], [address] WBC Normal 4.4-11.0 [facility] Comment on above: Result Comment: Canc elled via OM: Order cancelled - Patient discharged Performed By: #### L 500.2500, L100.0100 ####[facility] [address] [place], [address] Basic Metabolic Profile (BMP )on 11-25-2023 BUN Normal 7-18 [facility] Comment on above: Result Comment: Canc elled via OM: Order cancelled - Patient discharged Performed By: #### L 100.0100, L500.2500 ####[facility] [address] [place], [address] BUN/CRE Normal 10-20 [facility] Comment on above: Result Comment: Canc elled via OM: Order cancelled - Patient discharged Performed By: #### L 100.0100, L500.2500 ####[facility] [address] [place], [address] CA,Total Normal 8.5-10.1 [facility] Comment on above: Result Comment: Canc elled via OM: Order cancelled - Patient discharged Performed By: #### L 100.0100, L500.2500 ####[facility] [address] [place], [address] CL Normal 98-107 [facility] Comment on above: Result Comment: Canc elled via OM: Order cancelled - Patient discharged Performed By: #### L 100.0100, L500.2500 ####[facility] [address] [place], [address] CO2 Normal 21.0-32.0 [facility] Comment on above: Result Comment: Canc elled via OM: Order cancelled - Patient discharged Performed By: #### L 100.0100, L500.2500 ####[facility] [address] [place], [address] CREAT,SERUM Normal 0.70-1.30 [facility] Comment on above: Result Comment: Canc elled via OM: Order cancelled - Patient discharged Performed By: #### L 100.0100, L500.2500 ####[facility] [address] [place], [address] EST GFR Normal >60 [facility] Comment on above: Result Comment: Canc elled via OM: Order cancelled - Patient discharged Performed By: #### L 100.0100, L500.2500 ####[facility] [address] [place], [address] EST GFR - AA Normal >60 [facility] Comment on above: Result Comment: Canc elled via OM: Order cancelled - Patient discharged Performed By: #### L 100.0100, L500.2500 ####[facility] [address] [place], [address] GAP Normal 5-15 [facility] Comment on above: Result Comment: Canc elled via OM: Order cancelled - Patient discharged Performed By: #### L 100.0100, L500.2500 ####[facility] [address] [place], [address] GLU Normal 74-106 [facility] Comment on above: Result Comment: Canc elled via OM: Order cancelled - Patient discharged Performed By: #### L 100.0100, L500.2500 ####[facility] [address] [place], [address] Potassium Normal 3.5-5.1 [facility] Comment on above: Result Comment: Canc elled via OM: Order cancelled - Patient discharged Performed By: #### L 100.0100, L500.2500 ####[facility] [address] [place], [address] Basic Metabolic Profile (BMP) Normal 136-145 [facility] Comment on above: Result Comment: Canc elled via OM: Order cancelled - Patient discharged Performed By: #### L 100.0100, L500.2500 ####[facility] [address] [place], [address] CBC W/Diff, Automatedon 08- Absolute Neut Normal 2.0-7.7 [facility] Comment on above: Result Comment: Canc elled via OM: Order cancelled - Patient discharged Performed By: #### L 100.0100, L500.2500 ####[facility] [address] [place], [address] HCT Normal 40-54 [facility] Comment on above: Result Comment: Canc elled via OM: Order cancelled - Patient discharged Performed By: #### L 100.0100, L500.2500 ####[facility] [address] [place], [address] HGB Normal 13.0-16.5 [facility] Comment on above: Result Comment: Canc elled via OM: Order cancelled - Patient discharged Performed By: #### L 100.0100, L500.2500 ####[facility] [address] [place], [address] MCH Normal 27.0-32.0 [facility] Comment on above: Result Comment: Canc elled via OM: Order cancelled - Patient discharged Performed By: #### L 100.0100, L500.2500 ####[facility] [address] [place], [address] MCHC Normal 32-36 [facility] Comment on above: Result Comment: Canc elled via OM: Order cancelled - Patient discharged Performed By: #### L 100.0100, L500.2500 ####[facility] [address] [place], [address] MCV Normal 80-94 [facility] Comment on above: Result Comment: Canc elled via OM: Order cancelled - Patient discharged Performed By: #### L 100.0100, L500.2500 ####[facility] [address] [place], [address] NEUT% Normal 47-70 [facility] Comment on above: Result Comment: Canc elled via OM: Order cancelled - Patient discharged Performed By: #### L 100.0100, L500.2500 ####[facility] [address] [place], [address] PLT Normal 150-450 [facility] Comment on above: Result Comment: Canc elled via OM: Order cancelled - Patient discharged Performed By: #### L 100.0100, L500.2500 ####[facility] [address] [place], [address] RBC Normal 4.6-6.2 [facility] Comment on above: Result Comment: Canc elled via OM: Order cancelled - Patient discharged Performed By: #### L 100.0100, L500.2500 ####[facility] [address] [place], [address] RDW CV Normal 11.6-14.6 [facility] Comment on above: Result Comment: Canc elled via OM: Order cancelled - Patient discharged Performed By: #### L 100.0100, L500.2500 ####[facility] [address] [place], [address] RDW SD Normal 35.1-43.9 [facility] Comment on above: Result Comment: Canc elled via OM: Order cancelled - Patient discharged Performed By: #### L 100.0100, L500.2500 ####[facility] [address] [place], [address] WBC Normal 4.4-11.0 [facility] Comment on above: Result Comment: Canc elled via OM: Order cancelled - Patient discharged Performed By: #### L 100.0100, L500.2500 ####[facility] [address] [place], [address] L/S Spine Min 4 Viewson 08-0 -2023 L/S Spine Min 4 Views Normal [facility] Orthopedic Visit Reporton Orthopedic Visit Report Normal [facility] Basic Metabolic Profile (BMP )on 11-18-2023 BUN Normal 7-18 [facility] Comment on above: Result Comment: Canc elled via OM: Order cancelled - Patient discharged Performed By: #### L 500.2500, L100.0100 ####[facility] [address] [place], [address] BUN/CRE Normal 10-20 [facility] Comment on above: Result Comment: Canc elled via OM: Order cancelled - Patient discharged Performed By: #### L 500.2500, L100.0100 ####[facility] [address] [place], [address] CA,Total Normal 8.5-10.1 [facility] Comment on above: Result Comment: Canc elled via OM: Order cancelled - Patient discharged Performed By: #### L 500.2500, L100.0100 ####[facility] [address] [place], [address] CL Normal 98-107 [facility] Comment on above: Result Comment: Canc elled via OM: Order cancelled - Patient discharged Performed By: #### L 500.2500, L100.0100 ####[facility] [address] [place], [address] CO2 Normal 21.0-32.0 [facility] Comment on above: Result Comment: Canc elled via OM: Order cancelled - Patient discharged Performed By: #### L 500.2500, L100.0100 ####[facility] [address] [place], [address] CREAT,SERUM Normal 0.70-1.30 [facility] Comment on above: Result Comment: Canc elled via OM: Order cancelled - Patient discharged Performed By: #### L 500.2500, L100.0100 ####[facility] [address] [place], [address] EST GFR Normal >60 [facility] Comment on above: Result Comment: Canc elled via OM: Order cancelled - Patient discharged Performed By: #### L 500.2500, L100.0100 ####[facility] [address] [place], [address] EST GFR - AA Normal >60 [facility] Comment on above: Result Comment: Canc elled via OM: Order cancelled - Patient discharged Performed By: #### L 500.2500, L100.0100 ####[facility] [address] [place], [address] GAP Normal 5-15 [facility] Comment on above: Result Comment: Canc elled via OM: Order cancelled - Patient discharged Performed By: #### L 500.2500, L100.0100 ####[facility] [address] [place], [address] GLU Normal 74-106 [facility] Comment on above: Result Comment: Canc elled via OM: Order cancelled - Patient discharged Performed By: #### L 500.2500, L100.0100 ####[facility] [address] [place], [address] Potassium Normal 3.5-5.1 [facility] Comment on above: Result Comment: Canc elled via OM: Order cancelled - Patient discharged Performed By: #### L 500.2500, L100.0100 ####[facility] [address] [place], [address] Basic Metabolic Profile (BMP) Normal 136-145 [facility] Comment on above: Result Comment: Canc elled via OM: Order cancelled - Patient discharged Performed By: #### L 500.2500, L100.0100 ####[facility] [address] [place], [address] CBC W/Diff, Automatedon 08-0 -2023 Absolute Neut Normal 2.0-7.7 [facility] Comment on above: Result Comment: Canc elled via OM: Order cancelled - Patient discharged Performed By: #### L 500.2500, L100.0100 ####[facility] [address] [place], [address] HCT Normal 40-54 [facility] Comment on above: Result Comment: Canc elled via OM: Order cancelled - Patient discharged Performed By: #### L 500.2500, L100.0100 ####[facility] [address] [place], [address] HGB Normal 13.0-16.5 [facility] Comment on above: Result Comment: Canc elled via OM: Order cancelled - Patient discharged Performed By: #### L 500.2500, L100.0100 ####[facility] [address] [place], [address] MCH Normal 27.0-32.0 [facility] Comment on above: Result Comment: Canc elled via OM: Order cancelled - Patient discharged Performed By: #### L 500.2500, L100.0100 ####[facility] [address] [place], [address] MCHC Normal 32-36 [facility] Comment on above: Result Comment: Canc elled via OM: Order cancelled - Patient discharged Performed By: #### L 500.2500, L100.0100 ####[facility] [address] [place], [address] MCV Normal 80-94 [facility] Comment on above: Result Comment: Canc elled via OM: Order cancelled - Patient discharged Performed By: #### L 500.2500, L100.0100 ####[facility] [address] [place], [address] NEUT% Normal 47-70 [facility] Comment on above: Result Comment: Canc elled via OM: Order cancelled - Patient discharged Performed By: #### L 500.2500, L100.0100 ####[facility] [address] [place], [address] PLT Normal 150-450 [facility] Comment on above: Result Comment: Canc elled via OM: Order cancelled - Patient discharged Performed By: #### L 500.2500, L100.0100 ####[facility] [address] [place], [address] RBC Normal 4.6-6.2 [facility] Comment on above: Result Comment: Canc elled via OM: Order cancelled - Patient discharged Performed By: #### L 500.2500, L100.0100 ####[facility] [address] [place], [address] RDW CV Normal 11.6-14.6 [facility] Comment on above: Result Comment: Canc elled via OM: Order cancelled - Patient discharged Performed By: #### L 500.2500, L100.0100 ####[facility] [address] [place], [address] RDW SD Normal 35.1-43.9 [facility] Comment on above: Result Comment: Canc elled via OM: Order cancelled - Patient discharged Performed By: #### L 500.2500, L100.0100 ####[facility] [address] [place], [address] WBC Normal 4.4-11.0 [facility] Comment on above: Result Comment: Canc elled via OM: Order cancelled - Patient discharged Performed By: #### L 500.2500, L100.0100 ####[facility] [address] [place], [address] Basic Metabolic Profile (BMP )on 11-14-2023 BUN/CRE 28.0 RATIO High 10-20 [facility] Comment on above: Performed By: #### L 500.2500 ####[facility] [address] [place], [address] CA,Total 9.2 mg/dL Normal 8.5-10.1 [facility] Comment on above: Performed By: #### L 500.2500 ####[facility] [address] [place], [address] Chloride [Moles/Vol] 114 mmol/L High 98-107 [facility] Comment on above: Performed By: #### L 500.2500 ####[facility] [address] [place], [address] CO2 [Moles/Vol] 18.0 mmol/L Low 21.0-32.0 [facility] Comment on above: Performed By: #### L 500.2500 ####[facility] [address] [place], [address] Creatinine [Mass/Vol] 1.89 mg/dL High 0.70-1.30 [facility] Comment on above: Result Comment: The validity of the calculated GFR GFRAA in patients over70 years has not been determined. Clinical correlation isessential. Performed By: #### L 500.2500 ####[facility] [address] [place], [address] ECRCL 37.55 ml/min Normal [facility] Comment on above: Performed By: #### L 500.2500 ####[facility] [address] [place], [address] EST GFR - AA 46 mL/min Low >60 [facility] Comment on above: Result Comment: Afri can Italian GFR Calc Performed By: #### L 500.2500 ####[facility] [address] [place], [address] GAP 8 Normal 5-15 [facility] Comment on above: Performed By: #### L 500.2500 ####[facility] [address] [place], [address] GFR/1.73 sq M.predicted among non-blacks MDRD (S/P/Bld) [Vol rate/Area] 38 mL/min/{1.73_m2} Low >60 [facility] Comment on above: Result Comment: Non- GFR Calc Performed By: #### L 500.2500 ####[facility] [address] [place], [address] Glucose [Mass/Vol] 94 mg/dL Normal 74-106 [facility] Comment on above: Performed By: #### L 500.2500 ####[facility] [address] [place], [address] Potassium [Moles/Vol] 4.2 mmol/L Normal 3.5-5.1 [facility] Comment on above: Performed By: #### L 500.2500 ####[facility] [address] [place], [address] Sodium [Moles/Vol] 140 mmol/L Normal 136-145 [facility] Comment on above: Performed By: #### L 500.2500 ####[facility] [address] [place], [address] Urea nitrogen [Mass/Vol] 53 mg/dL High 7-18 [facility] Comment on above: Performed By: #### L 500.2500 ####[facility] [address] [place], [address] COVID 19 AG RAPID (RN PATRICIO Carey)on 11-13-2023 SARS-CoV-2 (COVID-19) RNA MYA+probe Ql (Unsp spec) Normal [facility] Comment on above: Performed By: #### M 100.505 ####[facility] [address] [place], [address] Basic Metabolic Profile (BMP )on 11-12-2023 BUN/CRE 25.9 RATIO High 10-20 [facility] Comment on above: Performed By: #### L 500.2500 ####[facility] [address] [place], [address] CA,Total 8.9 mg/dL Normal 8.5-10.1 [facility] Comment on above: Performed By: #### L 500.2500 ####[facility] [address] [place], [address] Chloride [Moles/Vol] 110 mmol/L High 98-107 [facility] Comment on above: Performed By: #### L 500.2500 ####[facility] [address] [place], [address] CO2 [Moles/Vol] 21.0 mmol/L Normal 21.0-32.0 [facility] Comment on above: Performed By: #### L 500.2500 ####[facility] [address] [place], [address] Creatinine [Mass/Vol] 2.20 mg/dL High 0.70-1.30 [facility] Comment on above: Result Comment: The validity of the calculated GFR GFRAA in patients over70 years has not been determined. Clinical correlation isessential. Performed By: #### L 500.2500 ####[facility] [address] [place], [address] ECRCL 32.26 ml/min Normal [facility] Comment on above: Performed By: #### L 500.2500 ####[facility] [address] [place], [address] EST GFR - AA 38 mL/min Low >60 [facility] Comment on above: Result Comment: Afri can Italian GFR Calc Performed By: #### L 500.2500 ####[facility] [address] [place], [address] GAP 8 Normal 5-15 [facility] Comment on above: Performed By: #### L 500.2500 ####[facility] [address] [place], [address] GFR/1.73 sq M.predicted among non-blacks MDRD (S/P/Bld) [Vol rate/Area] 32 mL/min/{1.73_m2} Low >60 [facility] Comment on above: Result Comment: Non- GFR Calc Performed By: #### L 500.2500 ####[facility] [address] [place], [address] Glucose [Mass/Vol] 104 mg/dL Normal 74-106 [facility] Comment on above: Result Comment: Fast ing Glucose result from 100 to 125 mg/dLsuggests IMPAIRED HOMEOSTASIS per A.D.A. criteria. Performed By: #### L 500.2500 ####[facility] [address] [place], [address] Potassium [Moles/Vol] 4.3 mmol/L Normal 3.5-5.1 [facility] Comment on above: Performed By: #### L 500.2500 ####[facility] [address] [place], [address] Sodium [Moles/Vol] 139 mmol/L Normal 136-145 [facility] Comment on above: Performed By: #### L 500.2500 ####[facility] [address] [place], [address] Urea nitrogen [Mass/Vol] 57 mg/dL High 7-18 [facility] Comment on above: Performed By: #### L 500.2500 ####[facility] [address] [place], [address] CBC W/Diff, Automatedon 07-3 PATH REV Reviewed Normal [facility] Comment on above: Result Comment: Abso lute lymphocytosis suggestive of low grade lympho-proliferative disorder.Clinical correlation is necessary.Macrocytic anemia.Prashanth Machado M.D. 11/12/23 AMENDED REPORT 11/12/23 1341 PATH REV previously reported as: August kathe Performed By: #### L 500.2500, L100.0100 ####[facility] [address] [place], [address] Basic Metabolic Profile (BMP )on 11-11-2023 BUN/CRE 27.8 RATIO High 10-20 [facility] Comment on above: Performed By: #### L 500.2500, L100.0100 ####[facility] [address] [place], [address] CA,Total 9.8 mg/dL Normal 8.5-10.1 [facility] Comment on above: Performed By: #### L 500.2500, L100.0100 ####[facility] [address] [place], [address] Chloride [Moles/Vol] 109 mmol/L High 98-107 [facility] Comment on above: Performed By: #### L 500.2500, L100.0100 ####[facility] [address] [place], [address] CO2 [Moles/Vol] 20.0 mmol/L Low 21.0-32.0 [facility] Comment on above: Performed By: #### L 500.2500, L100.0100 ####[facility] [address] [place], [address] Creatinine [Mass/Vol] 1.80 mg/dL High 0.70-1.30 [facility] Comment on above: Result Comment: The validity of the calculated GFR GFRAA in patients over70 years has not been determined. Clinical correlation isessential. Performed By: #### L 500.2500, L100.0100 ####[facility] [address] [place], [address] ECRCL 39.43 ml/min Normal [facility] Comment on above: Performed By: #### L 500.2500, L100.0100 ####[facility] [address] [place], [address] EST GFR - AA 48 mL/min Low >60 [facility] Comment on above: Result Comment: Afri can Italian GFR Calc Performed By: #### L 500.2500, L100.0100 ####[facility] [address] [place], [address] GAP 11 Normal 5-15 [facility] Comment on above: Performed By: #### L 500.2500, L100.0100 ####[facility] [address] [place], [address] GFR/1.73 sq M.predicted among non-blacks MDRD (S/P/Bld) [Vol rate/Area] 40 mL/min/{1.73_m2} Low >60 [facility] Comment on above: Result Comment: Non- GFR Calc Performed By: #### L 500.2500, L100.0100 ####[facility] [address] [place], [address] Glucose [Mass/Vol] 110 mg/dL High 74-106 [facility] Comment on above: Result Comment: Fast ing Glucose result from 100 to 125 mg/dLsuggests IMPAIRED HOMEOSTASIS per A.D.A. criteria. Performed By: #### L 500.2500, L100.0100 ####[facility] [address] [place], [address] Potassium [Moles/Vol] 5.2 mmol/L High 3.5-5.1 [facility] Comment on above: Performed By: #### L 500.2500, L100.0100 ####[facility] [address] [place], [address] Sodium [Moles/Vol] 140 mmol/L Normal 136-145 [facility] Comment on above: Performed By: #### L 500.2500, L100.0100 ####[facility] [address] [place], [address] Urea nitrogen [Mass/Vol] 50 mg/dL High 7-18 [facility] Comment on above: Performed By: #### L 500.2500, L100.0100 ####[facility] [address] [place], [address] Brain without Contraston Brain without Contrast Normal [facility] MR/BMS.BVSon 11-07-2023 MR/BMS.BVS Normal [facility] NCS and/or EMG Patienton NCS and/or EMG Patient Normal [facility] Basic Metabolic Profile (BMP )on 11-04-2023 BUN/CRE 24.5 RATIO High 10-20 [facility] Comment on above: Performed By: #### L 100.0100, L500.2500 ####[facility] [address] [place], [address] [place],Total 9.7 mg/dL Normal 8.5-10.1 [facility] Comment on above: Performed By: #### L 100.0100, L500.2500 ####[facility] [address] [place], [address] Chloride [Moles/Vol] 107 mmol/L Normal 98-107 [facility] Comment on above: Performed By: #### L 100.0100, L500.2500 ####[facility] [address] [place], [address] CO2 [Moles/Vol] 23.0 mmol/L Normal 21.0-32.0 [facility] Comment on above: Performed By: #### L 100.0100, L500.2500 ####[facility] [address] [place], [address] Creatinine [Mass/Vol] 1.43 mg/dL High 0.70-1.30 [facility] Comment on above: Result Comment: The validity of the calculated GFR GFRAA in patients over70 years has not been determined. Clinical correlation isessential. Performed By: #### L 100.0100, L500.2500 ####[facility] [address] [place], [address] ECRCL 49.63 ml/min Normal [facility] Comment on above: Performed By: #### L 100.0100, L500.2500 ####[facility] [address] [place], [address] EST GFR - AA 63 mL/min Normal >60 [facility] Comment on above: Result Comment: Afri can Italian GFR Calc Performed By: #### L 100.0100, L500.2500 ####[facility] [address] [place], [address] GAP 11 Normal 5-15 [facility] Comment on above: Performed By: #### L 100.0100, L500.2500 ####[facility] [address] [place], [address] GFR/1.73 sq M.predicted among non-blacks MDRD (S/P/Bld) [Vol rate/Area] 52 mL/min/{1.73_m2} Low >60 [facility] Comment on above: Result Comment: Non- GFR Calc Performed By: #### L 100.0100, L500.2500 ####[facility] [address] [place], [address] Glucose [Mass/Vol] 102 mg/dL Normal 74-106 [facility] Comment on above: Result Comment: Fast ing Glucose result from 100 to 125 mg/dLsuggests IMPAIRED HOMEOSTASIS per A.D.A. criteria. Performed By: #### L 100.0100, L500.2500 ####[facility] [address] [place], [address] Potassium [Moles/Vol] 5.1 mmol/L Normal 3.5-5.1 [facility] Comment on above: Performed By: #### L 100.0100, L500.2500 ####[facility] [address] [place], [address] Sodium [Moles/Vol] 141 mmol/L Normal 136-145 [facility] Comment on above: Performed By: #### L 100.0100, L500.2500 ####[facility] [address] [place], [address] Urea nitrogen [Mass/Vol] 35 mg/dL High 7-18 [facility] Comment on above: Performed By: #### L 100.0100, L500.2500 ####[facility] [address] [place], [address] CBC W/Diff, Automatedon - PATH REV Reviewed Normal [facility] Comment on above: Result Comment: Abso lute lymphocytosis suggestive of low grade lympho-proliferative disorder.Clinical correlation is necessary.Macrocytic anemia.Prashanth Machado M.D. 11/04/23 AMENDED REPORT 11/04/23 1151 PATH REV previously reported as: August Performed By: #### L 100.0100, L500.2500 ####[facility] [address] [place], [address] PATH REV Reviewed Normal [facility] Comment on above: Result Comment: Abso lute lymphocytosis suggestive of low grade lympho-proliferative disorder.Clinical correlation is necessary.Macrocytic anemia.Prashanth Macahdo M.D. 11/04/23 AMENDED REPORT 11/04/23 1148 PATH REV previously reported as: August Performed By: #### L 500.2500, L100.0100 ####[facility] [address] [place], [address] 12 Lead EKGon 11-03-2023 12 Lead EKG Normal [facility] Basic Metabolic Profile (BMP )on 11-03-2023 BUN/CRE 22.6 RATIO High 10-20 [facility] Comment on above: Performed By: #### L 500.2500, L100.0100 ####[facility] [address] [place], [address] [place],Total 9.3 mg/dL Normal 8.5-10.1 [facility] Comment on above: Performed By: #### L 500.2500, L100.0100 ####[facility] [address] [place], [address] Chloride [Moles/Vol] 112 mmol/L High 98-107 [facility] Comment on above: Performed By: #### L 500.2500, L100.0100 ####[facility] [address] [place], [address] CO2 [Moles/Vol] 21.0 mmol/L Normal 21.0-32.0 [facility] Comment on above: Performed By: #### L 500.2500, L100.0100 ####[facility] [address] [place], [address] Creatinine [Mass/Vol] 1.37 mg/dL High 0.70-1.30 [facility] Comment on above: Result Comment: The validity of the calculated GFR GFRAA in patients over70 years has not been determined. Clinical correlation isessential. Performed By: #### L 500.2500, L100.0100 ####[facility] [address] [place], [address] ECRCL 51.80 ml/min Normal [facility] Comment on above: Performed By: #### L 500.2500, L100.0100 ####[facility] [address] [place], [address] EST GFR - AA 66 mL/min Normal >60 [facility] Comment on above: Result Comment: Afri can Italian GFR Calc Performed By: #### L 500.2500, L100.0100 ####[facility] [address] [place], [address] GAP 6 Normal 5-15 [facility] Comment on above: Performed By: #### L 500.2500, L100.0100 ####[facility] [address] [place], [address] GFR/1.73 sq M.predicted among non-blacks MDRD (S/P/Bld) [Vol rate/Area] 55 mL/min/{1.73_m2} Low >60 [facility] Comment on above: Result Comment: Non- GFR Calc Performed By: #### L 500.2500, L100.0100 ####[facility] [address] [place], [address] Glucose [Mass/Vol] 112 mg/dL High 74-106 [facility] Comment on above: Result Comment: Fast ing Glucose result from 100 to 125 mg/dLsuggests IMPAIRED HOMEOSTASIS per A.D.A. criteria. Performed By: #### L 500.2500, L100.0100 ####[facility] [address] [place], [address] Potassium [Moles/Vol] 5.0 mmol/L Normal 3.5-5.1 [facility] Comment on above: Performed By: #### L 500.2500, L100.0100 ####[facility] [address] [place], [address] Sodium [Moles/Vol] 139 mmol/L Normal 136-145 [facility] Comment on above: Performed By: #### L 500.2500, L100.0100 ####[facility] [address] [place], [address] Urea nitrogen [Mass/Vol] 31 mg/dL High 10-29 [facility] Comment on above: Performed By: #### L 500.2500, L100.0100 ####[facility] [address] [place], [address] CBC W/Diff, Automatedon 10-13 PATH REV Reviewed Normal [facility] Comment on above: Result Comment: Abso lute lymphocytosis suggestive of low grade lympho-proliferative disorder.Clinical correlation is necessary.Macrocytic anemia.Prashanth Machado M.D. 11/03/23 AMENDED REPORT 11/03/23 1521 PATH REV previously reported as: August Performed By: #### L 100.0100, L500.2500 ####[facility] [address] [place], [address] Vancomycin, Random Levelon 0 11-02-2023 VANCO, RANDOM 17.8 ug/mL High 0.0-15.0 [facility] Comment on above: Result Comment: VANC OMYCIN STANDARD DRUG THERAPY: CRITICAL VALUE IS > 15.0 mg/LVANCOMYCIN HIGH INTENSITY THERAPY: CRITICAL VALUE IS > 20.0 mg/LPLEASE CONTACT PHARMACY SERVICES (#2397) FOR INTERPRETATIONOF RESULTS. THIS RESULT DOES NOT REPRESENT A PEAK OR TROUGHLEVEL FOR THIS DRUG. Performed By: #### L 501.8850 ####[facility] [address] [place], [address] Vancomycin, Trough Levelon 0 - VANCO, TROUGH 22.7 ug/mL High 5.0-15.0 [facility] Comment on above: Order Comment: Comme nts: Trough to be drawn 30 mins prior to scheduled [id number] Result Comment: VANC OMYCIN STANDARED DRUG THERAPY TROUGH LEVEL: 5.0 - 15.0 mg/LVANCOMYCIN HIGH INTENSITY THERAPY TROUGH LEVEL: 15.0 - 20.0 mg/LHigh Intensity therapy recommended for serious lifethreatening infections include:- Jodzbtfghd-Mcfruozwxjns-Btmqhignc (Ventilator/Healtcare Associated)-SepsisPLEASE CONTACT PHARMACY SERVICES (#7715) FOR INTERPRETATIONOF RESULTS. Performed By: #### L 501.8820 ####[facility] [address] [place], [address] Basic Metabolic Profile (BMP )on 11-01-2023 BUN/CRE 21.4 RATIO High 10-20 [facility] Comment on above: Performed By: #### L 100.0100, L500.2500 ####[facility] [address] [place], [address] [place],Total 7.4 mg/dL Low 8.5-10.1 [facility] Comment on above: Performed By: #### L 100.0100, L500.2500 ####[facility] [address] [place], [address] Chloride [Moles/Vol] 115 mmol/L High 98-107 [facility] Comment on above: Performed By: #### L 100.0100, L500.2500 ####[facility] [address] [place], [address] CO2 [Moles/Vol] 23.0 mmol/L Normal 21.0-32.0 [facility] Comment on above: Performed By: #### L 100.0100, L500.2500 ####[facility] [address] [place], [address] Creatinine [Mass/Vol] 1.31 mg/dL High 0.70-1.30 [facility] Comment on above: Result Comment: The validity of the calculated GFR GFRAA in patients over70 years has not been determined. Clinical correlation isessential. Performed By: #### L 100.0100, L500.2500 ####[facility] [address] [place], [address] ECRCL 54.18 ml/min Normal [facility] Comment on above: Performed By: #### L 100.0100, L500.2500 ####[facility] [address] [place], [address] EST GFR - AA 70 mL/min Normal >60 [facility] Comment on above: Result Comment: Afri can Italian GFR Calc Performed By: #### L 100.0100, L500.2500 ####[facility] [address] [place], [address] GAP 5 Normal 5-15 [facility] Comment on above: Performed By: #### L 100.0100, L500.2500 ####[facility] [address] [place], [address] GFR/1.73 sq M.predicted among non-blacks MDRD (S/P/Bld) [Vol rate/Area] 58 mL/min/{1.73_m2} Low >60 [facility] Comment on above: Result Comment: Non- GFR Calc Performed By: #### L 100.0100, L500.2500 ####[facility] [address] [place], [address] Glucose [Mass/Vol] 103 mg/dL Normal 74-106 [facility] Comment on above: Result Comment: Fast ing Glucose result from 100 to 125 mg/dLsuggests IMPAIRED HOMEOSTASIS per A.D.A. criteria. Performed By: #### L 100.0100, L500.2500 ####[facility] [address] [place], [address] Potassium [Moles/Vol] 4.8 mmol/L Normal 3.5-5.1 [facility] Comment on above: Performed By: #### L 100.0100, L500.2500 ####[facility] [address] [place], [address] Sodium [Moles/Vol] 143 mmol/L Normal 136-145 [facility] Comment on above: Performed By: #### L 100.0100, L500.2500 ####[facility] [address] [place], [address] Urea nitrogen [Mass/Vol] 28 mg/dL High 10-29 [facility] Comment on above: Performed By: #### L 100.0100, L500.2500 ####[facility] [address] [place], [address] Vancomycin, Trough Levelon 0 11-01-2023 VANCO, TROUGH 14.5 ug/mL Normal 5.0-15.0 [facility] Comment on above: Order Comment: Comme nts: DRAW 30 MIN PRIOR TO [id number] Result Comment: VANC OMYCIN STANDARED DRUG THERAPY TROUGH LEVEL: 5.0 - 15.0 mg/LVANCOMYCIN HIGH INTENSITY THERAPY TROUGH LEVEL: 15.0 - 20.0 mg/LHigh Intensity therapy recommended for serious lifethreatening infections include:- Vhbluiqrtt-Zrxrsjpthmew-Rzrhiwgwt (Ventilator/Healtcare Associated)-SepsisPLEASE CONTACT PHARMACY SERVICES (#4405) FOR INTERPRETATIONOF RESULTS. Performed By: #### L 501.8820 ####[facility] [address] [place], [address] Basic Metabolic Profile (BMP )on 10-31-2023 BUN/CRE 23.4 RATIO High 01-31 [facility] Comment on above: Performed By: #### L 501.5200, L500.2500 ####[facility] [address] [place], [address] CA,Total 6.8 mg/dL Low 8.5-10.1 [facility] Comment on above: Result Comment: Crit ical Result(s) Called at: 07:17:18 10/31/2023 by: CAIN to Ashia Quinonez. Results read back by same. Performed By: #### L 501.5200, L500.2500 ####[facility] [address] [place], [address] Chloride [Moles/Vol] 110 mmol/L High 98-107 [facility] Comment on above: Performed By: #### L 501.5200, L500.2500 ####[facility] [address] [place], [address] CO2 [Moles/Vol] 22.0 mmol/L Normal 21.0-32.0 [facility] Comment on above: Performed By: #### L 501.5200, L500.2500 ####[facility] [address] [place], [address] Creatinine [Mass/Vol] 1.37 mg/dL High 0.70-1.30 [facility] Comment on above: Result Comment: The validity of the calculated GFR GFRAA in patients over70 years has not been determined. Clinical correlation isessential. Performed By: #### L 501.5200, L500.2500 ####[facility] [address] [place], [address] ECRCL 51.80 ml/min Normal [facility] Comment on above: Performed By: #### L 501.5200, L500.2500 ####[facility] [address] [place], [address] EST GFR - AA 66 mL/min Normal >60 [facility] Comment on above: Result Comment: Afri can Italian GFR Calc Performed By: #### L 501.5200, L500.2500 ####[facility] [address] [place], [address] GAP 12 Normal 5-15 [facility] Comment on above: Performed By: #### L 501.5200, L500.2500 ####[facility] [address] [place], [address] GFR/1.73 sq M.predicted among non-blacks MDRD (S/P/Bld) [Vol rate/Area] 55 mL/min/{1.73_m2} Low >60 [facility] Comment on above: Result Comment: Non- GFR Calc Performed By: #### L 501.5200, L500.2500 ####[facility] [address] [place], [address] Glucose [Mass/Vol] 125 mg/dL High 74-106 [facility] Comment on above: Result Comment: Fast ing Glucose result from 100 to 125 mg/dLsuggests IMPAIRED HOMEOSTASIS per A.D.A. criteria. Performed By: #### L 501.5200, L500.2500 ####[facility] [address] [place], [address] Potassium [Moles/Vol] 4.0 mmol/L Normal 3.5-5.1 [facility] Comment on above: Performed By: #### L 501.5200, L500.2500 ####[facility] [address] [place], [address] Sodium [Moles/Vol] 144 mmol/L Normal 136-145 [facility] Comment on above: Performed By: #### L 501.5200, L500.2500 ####[facility] [address] [place], [address] Urea nitrogen [Mass/Vol] 32 mg/dL High 7-18 [facility] Comment on above: Performed By: #### L 501.5200, L500.2500 ####[facility] [address] [place], [address] CBC W/Diff, Automatedon 07-1 9-2024 PATH REV Reviewed Normal [facility] Comment on above: Result Comment: Abso lute lymphocytosis suggestive of low grade lympho-proliferative disorder.Clinical correlation is necessary.Macrocytic anemia.Prashanth Machado M.D. 10/31/23 AMENDED REPORT 10/31/23 1254 PATH REV previously reported as: August kathe Performed By: #### L 501.5200, L500.4100, L500.2500, L100.0100 ####[facility] [address] [place], [address] Consultation - Infectious Dx on 10-31-2023 Consultation - Infectious Dx Normal [facility] MR/CON.PCM.NEon 10-31-2023 MR/CON.PCM.NE Normal [facility] Magnesiumon 10-31-2023 Magnesium [Mass/Vol] 2.0 mg/dL Normal 1.6-2.6 [facility] Comment on above: Performed By: #### L 501.5200, L500.2500 ####[facility] [address] [place], [address] Basic Metabolic Profile (BMP )on 10-30-2023 BUN/CRE 15.4 RATIO Normal 10-20 [facility] Comment on above: Performed By: #### L 501.5200, L500.2500 ####[facility] [address] [place], [address] CA,Total 5.6 mg/dL Invalid Interpretation Code 8.5-10.1 [facility] Comment on above: Result Comment: Crit ical Result(s) Called at: 15:09:05 10/30/2023 by: CAIN Malone. Results read back by same. Performed By: #### L 501.5200, L500.2500 ####[facility] [address] [place], [address] Chloride [Moles/Vol] 109 mmol/L High 98-107 [facility] Comment on above: Performed By: #### L 501.5200, L500.2500 ####[facility] [address] [place], [address] CO2 [Moles/Vol] 16.0 mmol/L Low 21.0-32.0 [facility] Comment on above: Performed By: #### L 501.5200, L500.2500 ####[facility] [address] [place], [address] Creatinine [Mass/Vol] 1.62 mg/dL High 0.70-1.30 [facility] Comment on above: Result Comment: The validity of the calculated GFR GFRAA in patients over70 years has not been determined. Clinical correlation isessential. Performed By: #### L 501.5200, L500.2500 ####[facility] [address] [place], [address] ECRCL 43.81 ml/min Normal [facility] Comment on above: Performed By: #### L 501.5200, L500.2500 ####[facility] [address] [place], [address] EST GFR - AA 54 mL/min Low >60 [facility] Comment on above: Result Comment: Afri can Italian GFR Calc Performed By: #### L 501.5200, L500.2500 ####[facility] [address] [place], [address] GAP 17 High 5-15 [facility] Comment on above: Performed By: #### L 501.5200, L500.2500 ####[facility] [address] [place], [address] GFR/1.73 sq M.predicted among non-blacks MDRD (S/P/Bld) [Vol rate/Area] 45 mL/min/{1.73_m2} Low >60 [facility] Comment on above: Result Comment: Non- GFR Calc Performed By: #### L 501.5200, L500.2500 ####[facility] [address] [place], [address] Glucose [Mass/Vol] 172 mg/dL High 74-106 [facility] Comment on above: Result Comment: Fast ing Glucose result greater than or equal to 126 mg/dLsuggests DIABETES MELLITUS per A.D.A. criteria. Performed By: #### L 501.5200, L500.2500 ####[facility] [address] [place] [place], [address] Potassium [Moles/Vol] 3.8 mmol/L Normal 3.5-5.1 [facility] Comment on above: Performed By: #### L 501.5200, L500.2500 ####[facility] [address] [place], [address] Sodium [Moles/Vol] 142 mmol/L Normal 136-145 [facility] Comment on above: Performed By: #### L 501.5200, L500.2500 ####[facility] [address] [place], [address] Urea nitrogen [Mass/Vol] 25 mg/dL High 7-18 [facility] Comment on above: Performed By: #### L 501.5200, L500.2500 ####[facility] [address] [place], [address] BUN/CRE 17.0 RATIO Normal 10-20 [facility] Comment on above: Order Comment: Comme nts: NPO at [place] prior to lipid panel Performed By: #### L 501.5200, L500.4100, L500.2500, L100.0100 ####[facility] [address] [place], [address] CA,Total 6.1 mg/dL Invalid Interpretation Code 8.5-10.1 [facility] Comment on above: Order Comment: Comme nts: NPO at [place] prior to lipid panel Result Comment: Crit ical Result(s) Called at: 06:30:30 10/30/2023 by:Kareen Lorenzo. Results read back by same. Performed By: #### L 501.5200, L500.4100, L500.2500, L100.0100 ####[facility] [address] [place], [address] Chloride [Moles/Vol] 112 mmol/L High 98-107 [facility] Comment on above: Order Comment: Comme nts: NPO at [place] prior to lipid panel Performed By: #### L 501.5200, L500.4100, L500.2500, L100.0100 ####[facility] [address] [place], [address] CO2 [Moles/Vol] 23.0 mmol/L Normal 21.0-32.0 [facility] Comment on above: Order Comment: Comme nts: NPO at [place] prior to lipid panel Performed By: #### L 501.5200, L500.4100, L500.2500, L100.0100 ####[facility] [address] [place], [address] Creatinine [Mass/Vol] 1.41 mg/dL High 0.70-1.30 [facility] Comment on above: Order Comment: Comme nts: NPO at [place] prior to lipid panel Result Comment: The validity of the calculated GFR GFRAA in patients over70 years has not been determined. Clinical correlation isessential. Performed By: #### L 501.5200, L500.4100, L500.2500, L100.0100 ####[facility] [address] [place], [address] ECRCL 50.33 ml/min Normal [facility] Comment on above: Order Comment: Comme nts: NPO at [place] prior to lipid panel Performed By: #### L 501.5200, L500.4100, L500.2500, L100.0100 ####[facility] [address] [place], [address] EST GFR - AA 64 mL/min Normal >60 [facility] Comment on above: Order Comment: Comme nts: NPO at [place] prior to lipid panel Result Comment: Afri can Italian GFR Calc Performed By: #### L 501.5200, L500.4100, L500.2500, L100.0100 ####[facility] [address] [place], [address] GAP 9 Normal 5-15 [facility] Comment on above: Order Comment: Comme nts: NPO at [place] prior to lipid panel Performed By: #### L 501.5200, L500.4100, L500.2500, L100.0100 ####[facility] [address] [place], [address] GFR/1.73 sq M.predicted among non-blacks MDRD (S/P/Bld) [Vol rate/Area] 53 mL/min/{1.73_m2} Low >60 [facility] Comment on above: Order Comment: Comme nts: NPO at [place] prior to lipid panel Result Comment: Non- GFR Calc Performed By: #### L 501.5200, L500.4100, L500.2500, L100.0100 ####[facility] [address] [place], [address] Glucose [Mass/Vol] 111 mg/dL High 74-106 [facility] Comment on above: Order Comment: Comme nts: NPO at [place] prior to lipid panel Result Comment: Fast ing Glucose result from 100 to 125 mg/dLsuggests IMPAIRED HOMEOSTASIS per A.D.A. criteria. Performed By: #### L 501.5200, L500.4100, L500.2500, L100.0100 ####[facility] [address] [place], [address] Potassium [Moles/Vol] 3.7 mmol/L Normal 3.5-5.1 [facility] Comment on above: Order Comment: Comme nts: NPO at [place] prior to lipid panel Performed By: #### L 501.5200, L500.4100, L500.2500, L100.0100 ####[facility] [address] [place], [address] Sodium [Moles/Vol] 144 mmol/L Normal 136-145 [facility] Comment on above: Order Comment: Comme nts: NPO at [place] prior to lipid panel Performed By: #### L 501.5200, L500.4100, L500.2500, L100.0100 ####[facility] [address] [place], [address] Urea nitrogen [Mass/Vol] 24 mg/dL High 10-29 [facility] Comment on above: Order Comment: Comme nts: NPO at [place] prior to lipid panel Performed By: #### L 501.5200, L500.4100, L500.2500, L100.0100 ####[facility] [address] [place], [address] Brain without Contraston Brain without Contrast Normal [facility] CBC W/Diff, Automatedon 10-12 PATH REV Reviewed Normal [facility] Comment on above: Result Comment: Abso lute lymphocytosis suggestive of low grade lympho-proliferative disorder.Clinical correlation is necessary.Macrocytic anemia.Clinical correlation necessary.Prashanth Machado M.D. 10/30/23 AMENDED REPORT 10/30/23 1316 PATH REV previously reported as: August Performed By: #### L 300.3900, L300.4310, L100.0100, L501.4020, L500.2500 ####[facility] [address] [place], [address] L501.2276on 10-30-2023 Ionized Calcium 3.80 mg/dL Low 4.36-5.20 [facility] Comment on above: Performed By: #### L 501.2276 ####[facility] [address] [place], [address] Lipid Profileon 10-30-2023 Cholesterol [Mass/Vol] 57 mg/dL Normal 200 [facility] Comment on above: Order Comment: Comme nts: NPO at [place] prior to lipid panel Result Comment: <200 mg/dL Desirable 200-240 mg/dL Borderline >240 mg/dL High Risk Performed By: #### L 501.5200, L500.4100, L500.2500, L100.0100 ####[facility] [address] [place], [address] Cholesterol in HDL [Mass/Vol] 38 mg/dL Low [facility] Comment on above: Order Comment: Comme nts: NPO at [place] prior to lipid panel Result Comment: The drugs N-Acetylcysteine and Metamizole may falselydepress this assay. Reference Range HDL <40 mg/dL Low HDL Cholesterol HDL >or= 60 mg/dL High HDL Cholesterol Performed By: #### L 501.5200, L500.4100, L500.2500, L100.0100 ####[facility] [address] [place], [address] Cholesterol in LDL [Mass/Vol] -2 mg/dL Low 0-130 [facility] Comment on above: Order Comment: Comme nts: NPO at [place] prior to lipid panel Performed By: #### L 501.5200, L500.4100, L500.2500, L100.0100 ####[facility] [address] [place], [address] Cholesterol in VLDL [Mass/Vol] 21 mg/dL Normal 5-40 [facility] Comment on above: Order Comment: Comme nts: NPO at [place] prior to lipid panel Performed By: #### L 501.5200, L500.4100, L500.2500, L100.0100 ####[facility] [address] [place], [address] Triglyceride [Mass/Vol] 106 mg/dL Normal [facility] Comment on above: Order Comment: Comme nts: NPO at [place] prior to lipid panel Result Comment: The drugs N-Acetylcysteine and Metamizole may falselydepress this assay.Serum Triglycerides Reference Interval Normal <150 mg/dL Borderline high 150 - 199 mg/dL High 200 - 499 mg/dL Very High > or = 500 mg/dL Performed By: #### L 501.5200, L500.4100, L500.2500, L100.0100 ####[facility] [address] [place], [address] MR/CON.PCM.NEon 10-30-2023 MR/CON.PCM.NE Normal [facility] Magnesiumon 10-30-2023 Magnesium [Mass/Vol] 1.6 mg/dL Normal 1.6-2.6 [facility] Comment on above: Performed By: #### L 501.5200, L500.2500 ####[facility] [address] [place], [address] Magnesium [Mass/Vol] 0.3 mg/dL Invalid Interpretation Code 1.6-2.6 [facility] Comment on above: Order Comment: Comme nts: NPO at [place] prior to lipid panel Result Comment: Crit ical Result(s) Called at: 06:30:30 10/30/2023 by:Kareen Lorenzo. Results read back by same. Performed By: #### L 501.5200, L500.4100, L500.2500, L100.0100 ####[facility] [address] [place], [address] Phosphoruson 10-30-2023 Phosphate [Mass/Vol] 4.9 mg/dL Normal 2.5-4.9 [facility] Comment on above: Performed By: #### L 501.2300 ####[facility] [address] [place], [address] 12 Lead EKGon 10-29-2023 12 Lead EKG Normal [facility] Basic Metabolic Profile (BMP )on 10-29-2023 BUN/CRE 18.0 RATIO Normal 10-20 [facility] Comment on above: Order Comment: 'TROP ' Serial specimen #1, #2 or #3: 1 Performed By: #### L 300.3900, L300.4310, L100.0100, L501.4020, L500.2500 ####[facility] [address] [place], [address] CA,Total 5.8 mg/dL Invalid Interpretation Code 8.5-10.1 [facility] Comment on above: Order Comment: 'TROP ' Serial specimen #1, #2 or #3: 1 Result Comment: Crit ical Result(s) Called at: 14:45:15 10/29/2023 by: Cain Gar. Results read back by same. Performed By: #### L 300.3900, L300.4310, L100.0100, L501.4020, L500.2500 ####[facility] [address] [place], [address] Chloride [Moles/Vol] 108 mmol/L High 98-107 [facility] Comment on above: Order Comment: 'TROP ' Serial specimen #1, #2 or #3: 1 Performed By: #### L 300.3900, L300.4310, L100.0100, L501.4020, L500.2500 ####[facility] [address] [place], [address] CO2 [Moles/Vol] 21.0 mmol/L Normal 21.0-32.0 [facility] Comment on above: Order Comment: 'TROP ' Serial specimen #1, #2 or #3: 1 Performed By: #### L 300.3900, L300.4310, L100.0100, L501.4020, L500.2500 ####[facility] [address] [place], [address] Creatinine [Mass/Vol] 1.72 mg/dL High 0.70-1.30 [facility] Comment on above: Order Comment: 'TROP ' Serial specimen #1, #2 or #3: 1 Result Comment: The validity of the calculated GFR GFRAA in patients over70 years has not been determined. Clinical correlation isessential. Performed By: #### L 300.3900, L300.4310, L100.0100, L501.4020, L500.2500 ####[facility] [address] [facility] [address] ECRCL 41.26 ml/min Normal [facility] Comment on above: Order Comment: 'TROP ' Serial specimen #1, #2 or #3: 1 Performed By: #### L 300.3900, L300.4310, L100.0100, L501.4020, L500.2500 ####[facility] [address] [place], [address] EST GFR - AA 51 mL/min Low >60 [facility] Comment on above: Order Comment: 'TROP ' Serial specimen #1, #2 or #3: 1 Result Comment: Afri can Italian GFR Calc Performed By: #### L 300.3900, L300.4310, L100.0100, L501.4020, L500.2500 ####[facility] [address] [place], [address] GAP 12 Normal 5-15 [facility] Comment on above: Order Comment: 'TROP ' Serial specimen #1, #2 or #3: 1 Performed By: #### L 300.3900, L300.4310, L100.0100, L501.4020, L500.2500 ####[facility] [address] [place], [address] GFR/1.73 sq M.predicted among non-blacks MDRD (S/P/Bld) [Vol rate/Area] 42 mL/min/{1.73_m2} Low >60 [facility] Comment on above: Order Comment: 'TROP ' Serial specimen #1, #2 or #3: 1 Result Comment: Non- GFR Calc Performed By: #### L 300.3900, L300.4310, L100.0100, L501.4020, L500.2500 ####[facility] [address] [place], [address] Glucose [Mass/Vol] 96 mg/dL Normal 74-106 [facility] Comment on above: Order Comment: 'TROP ' Serial specimen #1, #2 or #3: 1 Performed By: #### L 300.3900, L300.4310, L100.0100, L501.4020, L500.2500 ####[facility] [address] [place], [address] Potassium [Moles/Vol] 4.1 mmol/L Normal 3.5-5.1 [facility] Comment on above: Order Comment: 'TROP ' Serial specimen #1, #2 or #3: 1 Performed By: #### L 300.3900, L300.4310, L100.0100, L501.4020, L500.2500 ####[facility] [address] [place], [address] Sodium [Moles/Vol] 141 mmol/L Normal 136-145 [facility] Comment on above: Order Comment: 'TROP ' Serial specimen #1, #2 or #3: 1 Performed By: #### L 300.3900, L300.4310, L100.0100, L501.4020, L500.2500 ####[facility] [address] [place], [address] Urea nitrogen [Mass/Vol] 31 mg/dL High 7-18 [facility] Comment on above: Order Comment: 'TROP ' Serial specimen #1, #2 or #3: 1 Performed By: #### L 300.3900, L300.4310, L100.0100, L501.4020, L500.2500 ####[facility] [address] [place], [address] Bedside Glucoseon 10-29-2023 FINGERSTICK GLU 97 mg/dL Normal 74-106 [facility] Comment on above: Result Comment: TRACE LEON OF PATIENT CARE PER NURSING PROTOCOL Performed By: #### L 501.080 ####[facility] [address] [place], [address] CTA Head AND Neck W/ Contras ton 10-29-2023 CTA Head AND Neck W/ Contrast Normal [facility] Chest 1 Viewon 10-29-2023 Chest 1 View Normal [facility] Echo Completeon 10-29-2023 Echo Complete Normal [facility] Emergency Department Summary on 10-29-2023 Emergency Department Summary Normal [facility] H AND P Exam - Hospitaliston 10-29-2023 H&P Exam - Hospitalist Normal [facility] L501.4020on 10-29-2023 TROPONIN-I HS 33 pg/mL Normal 3.0-78.0 [facility] Comment on above: Order Comment: 'TROP ' Serial specimen #1, #2 or #3: 1 Result Comment: Plea se Note: New Test Units and Gender Specific Reference Ranges. For more information see Policy Stat Procedure Lamar High Sensitivity Troponin (TNIH) and attachments. Performed By: #### L 300.3900, L300.4310, L100.0100, L501.4020, L500.2500 ####[facility] [address] [place], [address] Partial Thromboplast Timeon 10-29-2023 aPTT Coag (Bld) [Time] 25.3 s Normal 24.1-36.2 [facility] Comment on above: Performed By: #### L 300.3900, L300.4310, L100.0100, L501.4020, L500.2500 ####[facility] [address] [place], [address] Prothrombin Time w/INRon INR Coag (PPP) [Relative time] 1.4 {INR} Normal [facility] Comment on above: Performed By: #### L 300.3900, L300.4310, L100.0100, L501.4020, L500.2500 ####[facility] [address] [place], [address] PT Coag (PPP) [Time] 17.0 s High 11.7-14.9 [facility] Comment on above: Performed By: #### L 300.3900, L300.4310, L100.0100, L501.4020, L500.2500 ####[facility] [address] [place], [address] STROKE Brain/Head without Co nton 10-29-2023 STROKE Brain/Head without Cont Normal [facility] CBC W/Diff, Automatedon 10-12 PATH REV Reviewed Normal [facility] Comment on above: Result Comment: Abso lute lymphocytosis suggestive of low grade lympho-proliferative disorder.Clinical correlation is necessary.Macrocytic anemia.Prashanth Machado M.D. 10/27/23 Performed By: #### L 503.6030, L503.6550, L100.0100, L504.2610, L500.4050 ####[facility] [address] [place], [address] Comprehensive Metabolic Prof ilon 10-23-2023 Albumin [Mass/Vol] 3.3 g/dL Normal 3.2-5.0 [facility] Comment on above: Order Comment: 1 Performed By: #### L 503.6030, L503.6550, L100.0100, L504.2610, L500.4050 ####[facility] [address] [place], [address] Albumin/Globulin [Mass ratio] 1.3 {ratio} Normal 0.9-2.4 [facility] Comment on above: Order Comment: 1 Performed By: #### L 503.6030, L503.6550, L100.0100, L504.2610, L500.4050 ####[facility] [address] [place], [address] ALK P 71 U/L Normal 45-117 [facility] Comment on above: Order Comment: 1 Performed By: #### L 503.6030, L503.6550, L100.0100, L504.2610, L500.4050 ####[facility] [address] [place], [address] ALT [Catalytic activity/Vol] 19 U/L Normal 16-61 [facility] Comment on above: Order Comment: 1 Performed By: #### L 503.6030, L503.6550, L100.0100, L504.2610, L500.4050 ####[facility] [address] [place], [address] AST [Catalytic activity/Vol] 14 U/L Low 15-37 [facility] Comment on above: Order Comment: 1 Performed By: #### L 503.6030, L503.6550, L100.0100, L504.2610, L500.4050 ####[facility] [address] [place], [address] Bilirubin [Mass/Vol] 0.30 mg/dL Normal 0.20-1.00 [facility] Comment on above: Order Comment: 1 Result Comment: For patients on eltrombopag therapy, use of Dimension Lamar TBIL is not recommended. Performed By: #### L 503.6030, L503.6550, L100.0100, L504.2610, L500.4050 ####[facility] [address] [place], [address] BUN/CRE 18.4 RATIO Normal 10-20 [facility] Comment on above: Order Comment: 1 Performed By: #### L 503.6030, L503.6550, L100.0100, L504.2610, L500.4050 ####[facility] [address] [place], [address] CA,Total 5.4 mg/dL Invalid Interpretation Code 8.5-10.1 [facility] Comment on above: Order Comment: 1 Result Comment: Crit ical Result(s) Called at: 13:04:08 10/23/2023 by: Sharri. Results read back by Elvie Lynn Performed By: #### L 503.6030, L503.6550, L100.0100, L504.2610, L500.4050 ####[facility] [address] [place], [address] Chloride [Moles/Vol] 110 mmol/L High 98-107 [facility] Comment on above: Order Comment: 1 Performed By: #### L 503.6030, L503.6550, L100.0100, L504.2610, L500.4050 ####[facility] [address] [place], [address] CO2 [Moles/Vol] 21.0 mmol/L Normal 21.0-32.0 [facility] Comment on above: Order Comment: 1 Performed By: #### L 503.6030, L503.6550, L100.0100, L504.2610, L500.4050 ####[facility] [address] [place], [address] Creatinine [Mass/Vol] 1.74 mg/dL High 0.70-1.30 [facility] Comment on above: Order Comment: 1 Result Comment: The validity of the calculated GFR GFRAA in patients over70 years has not been determined. Clinical correlation isessential. Performed By: #### L 503.6030, L503.6550, L100.0100, L504.2610, L500.4050 ####[facility] [address] [place], [address] ECRCL 45.20 ml/min Normal [facility] Comment on above: Order Comment: 1 Performed By: #### L 503.6030, L503.6550, L100.0100, L504.2610, L500.4050 ####[facility] [address] [place], [address] EST GFR - AA 50 mL/min Low >60 [facility] Comment on above: Order Comment: 1 Result Comment: Afri can Italian GFR Calc Performed By: #### L 503.6030, L503.6550, L100.0100, L504.2610, L500.4050 ####[facility] [address] [place], [address] GAP 10 Normal 5-15 [facility] Comment on above: Order Comment: 1 Performed By: #### L 503.6030, L503.6550, L100.0100, L504.2610, L500.4050 ####[facility] [address] [place], [address] GFR/1.73 sq M.predicted among non-blacks MDRD (S/P/Bld) [Vol rate/Area] 41 mL/min/{1.73_m2} Low >60 [facility] Comment on above: Order Comment: 1 Result Comment: Non- GFR Calc Performed By: #### L 503.6030, L503.6550, L100.0100, L504.2610, L500.4050 ####[facility] [address] [place], [address] Globulin (S) [Mass/Vol] 2.6 g/dL Normal 2.2-4.2 [facility] Comment on above: Order Comment: 1 Performed By: #### L 503.6030, L503.6550, L100.0100, L504.2610, L500.4050 ####[facility] [address] [place], [address] Glucose [Mass/Vol] 119 mg/dL High 74-106 [facility] Comment on above: Order Comment: 1 Result Comment: Fast ing Glucose result from 100 to 125 mg/dLsuggests IMPAIRED HOMEOSTASIS per A.D.A. criteria. Performed By: #### L 503.6030, L503.6550, L100.0100, L504.2610, L500.4050 ####[facility] [address] [place], [address] Potassium [Moles/Vol] 3.5 mmol/L Normal 3.5-5.1 [facility] Comment on above: Order Comment: 1 Performed By: #### L 503.6030, L503.6550, L100.0100, L504.2610, L500.4050 ####[facility] [address] [place], [address] Sodium [Moles/Vol] 141 mmol/L Normal 136-145 [facility] Comment on above: Order Comment: 1 Performed By: #### L 503.6030, L503.6550, L100.0100, L504.2610, L500.4050 ####[facility] [address] [place], [address] T PROT 5.9 g/dL Low 6.4-8.2 [facility] Comment on above: Order Comment: 1 Performed By: #### L 503.6030, L503.6550, L100.0100, L504.2610, L500.4050 ####[facility] [address] [place], [address] Urea nitrogen [Mass/Vol] 32 mg/dL High 7-18 [facility] Comment on above: Order Comment: 1 Performed By: #### L 503.6030, L503.6550, L100.0100, L504.2610, L500.4050 ####[facility] [address] [place], [address] Ferritinon 10-23-2023 Ferritin [Mass/Vol] 178 ng/mL Normal 26-388 [facility] Comment on above: Order Comment: 1 Performed By: #### L 503.6030, L503.6550, L100.0100, L504.2610, L500.4050 ####[facility] [address] [place], [address] Iron+Iron Binding Capacityon 10-23-2023 Iron [Mass/Vol] 139 ug/dL Normal 65-175 [facility] Comment on above: Order Comment: 1 Performed By: #### L 503.6030, L503.6550, L100.0100, L504.2610, L500.4050 ####[facility] [address] [place], [address] IRON SATURATION 50.9 Normal 15.0-55.0 [facility] Comment on above: Order Comment: 1 Performed By: #### L 503.6030, L503.6550, L100.0100, L504.2610, L500.4050 ####[facility] [address] [place], [address] TIBC 273 ug/dL Normal 250-450 [facility] Comment on above: Order Comment: 1 Performed By: #### L 503.6030, L503.6550, L100.0100, L504.2610, L500.4050 ####[facility] [id number] [place], [address] LDHon 10-23-2023 LDH 349 U/L High 87-241 [facility] Comment on above: Order Comment: 1 Performed By: #### L 503.6030, L503.6550, L100.0100, L504.2610, L500.4050 ####[facility] [address] [place], [address] Oncology Visit Reporton 10-12 Oncology Visit Report Normal [facility] Chest PA and Lateralon 10-19 Chest PA and Lateral Normal [facility] CNPNon 09-18-2023 CNPN Telephone (GGENMN) ADINA DAVID ([id number]) 1955 M Date Time Provider Department 09/18/23 HORTENCIA GALLARDO GGENMN During your visit today, we recorded the following information about you: Tereza Sunshine 09/18/2023 11:52 AM Signed 09/18/23 Patient calling for sooner appt.ed nurse cannot help with sooner appts. She can see if she can recommend anything for his internal bleeding issue he is still having. Fidencio Fernandez, MEHUL 09/19/2023 3:16 PM Signed Discussed with Dr. [...] See Comments Date Reviewed: 12/19/2022 Reviewed by: Halel Dale MD - Fully Assessed Reason for Visit: Appointment [186] Prescriptions as of 09/19/2023 - REPATHA SURECLICK 140 mg/mL pen injector INJECT 1 DOSE SUBCUTANEOUSLY ONCE EVERY MONTH - gtxtnfjeatn-pvngadefy-bvlzs ter (TRELEGY ELLIPTA) 100-62.5-25 mcg inhalation powder Inhale [...] unspecified chronicity, uns*12/01/2022 Coronary artery disease involving [place] falcon*12/02/2022 Other emphysema (HCC) [J43.8] 12/02/2022 Chronic [...] Encounter Status:Closed by FIDENCIO MON on 09/19/23 [facility] XR Chest 2 view-PA & LATon 0 08-15-2023 XR Chest 2 view-PA & LAT *ADDENDUM Two-view chest radiograph. Examination title should read: EXAMINATION: CHEST RADIOGRAPH (2 VIEW AP AND LATERAL) Report Dictated on Authenticated by: JAIME ATKINS On: 08/26/2023 09:04 Read by: JAIME ATKINS MD, MD Date: 08/26/2023 09:04 *ORIGINAL EXAMINATION: CHEST RADIOGRAPH (SINGLE VIEW AP OR [...] JAIME ATKINS MD, MD Date: 08/15/2023 17:49 [facility] Comment on above: Order Comment: Rales right [...] 05/06/2023 12:09:18 AM Ordering Provider: HAFSA JOHNSON [facility] ([place]) [place] SPINE CERVICAL W/O NORMAA Omega 05-06-2023 CT SPINE CERVICAL W/O CONTRAST ORIGINAL [...] Date: 05/05/2023 11:06:53 PM Ordering Provider: HAFSA JOHNSON [facility] ([place]) CT THORAX W/O CONTRASTon CT THORAX W/O [...] Date: 05/05/2023 11:20:44 PM Ordering Provider: HAFSA JOHNSON [facility] ([place] XR SPINE LUMBOSACRAL 2 OR 3 VIEWSon [...] Date: 05/05/2023 11:15:21 PM Ordering Provider: HAFSA JOHNSON Normal [facility] ([place]) ED Nursing Noteon 05-05-2023 ED Nursing Note Family came to [facility] stating they are taking him to another hospital Vida Owusu, MEHUL 05/05/231938 Normal [facility] ECG 12 lead (Clinic Performe d)on 02-20-2023 [facility] Work Phone: See scanned report [facility] Work Phone: CNPNon 01-21-2023 [facility] ([id number]) 1955 M Date Time Provider Department 01/21/23 NAKUL GALLEGOS [facility] During your visit today, we recorded the following information about you: Lucio Juan MA 01/21/2023 2:58 PM Signed Fyi- called patient to schedule his follow up appt. Pt declined and states he is no longer following up with [facility] providers-jj Allergies As of Date: 01/21/2023 Noted [...] he is no longer following up with [facility] providers-jj Prescriptions as of 01/21/2023 - BABY ASPIRIN ORAL Take 81 mg by mouth once daily. - CPAP - enoxaparin (LOVENOX) 40 mg/0.4 mL Inject 0.4 mL subcutaneously every 24 hours. - ergocalciferol 50,000 unit capsule (VITAMIN D2, DRISDOL) once every month. - evolocumab (REPATHA SURECLICK) 140 mg/mL pen injector Inject 140 mg subcutaneously every 2 weeks. - rhezaanmlqx-obhaacyht-qulwi ter (TRELEGY ELLIPTA) 100-62.5-25 mcg inhalation powder Inhale [...] unspecified chronicity, uns*12/01/2022 Coronary artery disease involving [place] fal[place]*12/02/2022 Other emphysema (HCC) [J43.8] 12/02/2022 Chronic [...] Encounter Status:Closed by LUCIO JUAN on 01/21/23 [facility] Patrick 01-17-2023 CNPN Telephone ([facility]) ADINA DAVID ([id number]) 1955 M Date Time Provider Department 01/17/23 ULISES RAMOS [facility] During your visit today, we recorded the [...] Of Medical Records [2017] Cmt: [facility] Prescriptions as of 01/17/2023 - covrgprydaa-dklaiwgfb-claww ter (TRELEGY ELLIPTA) 100-62.5-25 mcg inhalation powder Inhale [...] unspecified chronicity, uns*12/01/2022 Coronary artery disease involving [place] falcon*12/02/2022 Other emphysema (HCC) [J43.8] 12/02/2022 Chronic [...] Encounter Status:Closed by MARIELOS SCHWARTZ on 01/17/23 [facility] CNCOon 12-30-2022 CNCO Letter Text [facility] CNPNon 12-30-2022 CNPN Telephone (HCSIND) ADINA DAVID ([id number]) 1955 M Date Time Provider Department 12/30/22 JENIFER LLOYD During your visit today, we recorded the following information about you: Jenifer Lloyd LPN 12/30/2022 11:29 AM Signed Halle Dale MD, [facility] received a referral for [facility] services. Frankie is currently inpatient at [facility] [place]. At this time we will be canceling [...] tablet by mouth daily at bedtime. - zfuiusyycjb-xoopcuxdb-pxtmd ter (TRELEGY ELLIPTA) 100-62.5-25 mcg inhalation powder Inhale [...] unspecified chronicity, uns*12/01/2022 Coronary artery disease involving [place] fal[place]*12/02/2022 Other emphysema (HCC) [J43.8] 12/02/2022 Chronic [...] Encounter Status:Closed by JENIFER LLOYD on 12/30/22 [facility] Patrick 12-27-2022 [facility] Telephone (HCSIND) ADINA DAVID ([id number]) 1955 M Date Time Provider Department 12/27/22 [...] the following requesting call back to confirm [facility] [phone] PARTH Dawkins Lisa, LPN 12/29/2022 11:34 AM Signed Vm left at the following requesting call back to confirm [facility] [phone] Loraine Talbot LPN Allergies As of Date: [...] tablet by mouth daily at bedtime. - qgpeqxrgjxk-rylfddzim-gjsuc ter (TRELEGY ELLIPTA) 100-62.5-25 mcg inhalation powder Inhale [...] unspecified chronicity, uns*12/01/2022 Coronary artery disease involving [place] falcon*12/02/2022 Other emphysema (HCC) [J43.8] 12/02/2022 Chronic [...] Z*12/11/2022 Vivi (more content not included)... Normal [facility] BioFire PCR Stool Pathogens (GI Panel)on 12-25-2022 Adenovirus F 40/41 Not detected Normal NOT DETECTED [facility] Comment on above: Order Comment: GI Pa yaneth for: Clostridium Difficile, Stool Culture , Ova/Parasite, Giardia/Crypto, Shiga Toxin Performed By: #### B IOGI #### [facility] [address] [place], [place] [id number] Antibiotic Normal [facility] Comment on above: Order Comment: GI Pa yaneth for: Clostridium Difficile, Stool Culture , Ova/Parasite, Giardia/Crypto, Shiga Toxin Performed By: #### B IOGI #### [facility] [address] [place] [address] Astrovirus Not detected Normal NOT DETECTED [facility] Comment on above: Order Comment: GI Pa yaneth for: Clostridium Difficile, Stool Culture , Ova/Parasite, Giardia/Crypto, Shiga Toxin Performed By: #### B IOGI #### [facility] [address] [place], [place] [address] Bacteria identified Cx Nom (Unsp spec) < BACTERIA > Normal [facility] Comment on above: Order Comment: GI Pa yaneth for: Clostridium Difficile, Stool Culture , Ova/Parasite, Giardia/Crypto, Shiga Toxin Performed By: #### B IOGI #### [facility] [address] [place], [place] [address] C. difficile tox A/B Not detected Normal NOT DETECTED [facility] Comment on above: Order Comment: GI Pa yaneth for: Clostridium Difficile, Stool Culture , Ova/Parasite, Giardia/Crypto, Shiga Toxin Performed By: #### B IOGI #### [address] [place], [place] [address] Campylobacter Not detected Normal NOT DETECTED [facility] Comment on above: Order Comment: GI Pa yaneth for: Clostridium Difficile, Stool Culture , Ova/Parasite, Giardia/Crypto, Shiga Toxin Performed By: #### B IOGI #### [facility] [address] [place], [place] [id number] Cryptosporidium Not detected Normal NOT DETECTED [facility] Comment on above: Order Comment: GI Pa yaneth for: Clostridium Difficile, Stool Culture , Ova/Parasite, Giardia/Crypto, Shiga Toxin Performed By: #### B IOGI #### [facility] [address] [place] [address] Cyclospora Not detected Normal NOT DETECTED [facility] Comment on above: Order Comment: GI Pa yaneth for: Clostridium Difficile, Stool Culture , Ova/Parasite, Giardia/Crypto, Shiga Toxin Performed By: #### B IOGI #### [facility] [address] [place] [address] Diar E. coli/Shig < DIARRHEAGENIC E. C TORRES / SHIGELLA > Normal [facility] Comment on above: Order Comment: GI Pa yaneth for: Clostridium Difficile, Stool Culture , Ova/Parasite, Giardia/Crypto, Shiga Toxin Performed By: #### B IOGI #### [facility] [address] [place], [place] [address] E. coli (EAEC) Not detected Normal NOT DETECTED [facility] Comment on above: Order Comment: GI Pa yaneth for: Clostridium Difficile, Stool Culture , Ova/Parasite, Giardia/Crypto, Shiga Toxin Performed By: #### B IOGI #### [facility] [address] [place], [place] [address] E. coli (EPEC) Not detected Normal NOT DETECTED [facility] Comment on above: Order Comment: GI Pa yaneth for: Clostridium Difficile, Stool Culture , Ova/Parasite, Giardia/Crypto, Shiga Toxin Performed By: #### B IOGI #### [facility] [address] [place], [place] [address] E. coli (ETEC) Not detected Normal NOT DETECTED [facility] Comment on above: Order Comment: GI Pa yaneth for: Clostridium Difficile, Stool Culture , Ova/Parasite, Giardia/Crypto, Shiga Toxin Performed By: #### B IOGI #### [facility] [address] [place] [address] E. coli (STEC) Not detected Normal NOT DETECTED [facility] Comment on above: Order Comment: GI Pa yaneth for: Clostridium Difficile, Stool Culture , Ova/Parasite, Giardia/Crypto, Shiga Toxin Performed By: #### B IOGI #### [facility] [address] [place] [address] E. coli O157 N/A Normal NOT DETECTED [facility] Comment on above: Order Comment: GI Pa yaneth for: Clostridium Difficile, Stool Culture , Ova/Parasite, Giardia/Crypto, Shiga Toxin Performed By: #### B IOGI #### [facility] [address] [place] [address] E. histolytica Not detected Normal NOT DETECTED [facility] Comment on above: Order Comment: GI Pa yaneth for: Clostridium Difficile, Stool Culture , Ova/Parasite, Giardia/Crypto, Shiga Toxin Performed By: #### B IOGI #### [facility] [address] [place] [address] GI Pathogens Sum ----- GASTROINTESTIN AL PATHOGENS SUMMARY ----- Normal [facility] Comment on above: Order Comment: GI Pa yaneth for: Clostridium Difficile, Stool Culture , Ova/Parasite, Giardia/Crypto, Shiga Toxin Performed By: #### B IOGI #### [facility] [address] [place] [address] Giardia lamblia Not detected Normal NOT DETECTED [facility] Comment on above: Order Comment: GI Pa yaneth for: Clostridium Difficile, Stool Culture , Ova/Parasite, Giardia/Crypto, Shiga Toxin Performed By: #### B IOGI #### [facility] [address] [place] [address] Indiv PCR Results ----- INDIVIDUAL PCR RESULTS ----- Normal [facility] Comment on above: Order Comment: GI Pa yaneth for: Clostridium Difficile, Stool Culture , Ova/Parasite, Giardia/Crypto, Shiga Toxin Performed By: #### B IOGI #### [facility] [address] [place], [place] [id number] Norovirus GI/GII Not detected Normal NOT DETECTED [facility] Comment on above: Order Comment: GI Pa yaneth for: Clostridium Difficile, Stool Culture , Ova/Parasite, Giardia/Crypto, Shiga Toxin Performed By: #### B IOGI #### [facility] [address] [place], [place] [address] P. shigelloides Not detected Normal NOT DETECTED [facility] Comment on above: Order Comment: GI Pa yaneth for: Clostridium Difficile, Stool Culture , Ova/Parasite, Giardia/Crypto, Shiga Toxin Performed By: #### B IOGI #### [facility] [address] [place] [address] Parasites < PARASITES > Normal [facility] Comment on above: Order Comment: GI Pa yaneth for: Clostridium Difficile, Stool Culture , Ova/Parasite, Giardia/Crypto, Shiga Toxin Performed By: #### B IOGI #### [facility] [address] [place], [place] [address] Pathogens Detected Detected Normal NOT DETECTED [facility] Comment on above: Order Comment: GI Pa yaneth for: Clostridium Difficile, Stool Culture , Ova/Parasite, Giardia/Crypto, Shiga Toxin Performed By: #### B IOGI #### [facility] [address] [place], [place] [address] Pathogens Detected Normal NOT DETECTED [facility] Comment on above: Order Comment: GI Pa yaneth for: Clostridium Difficile, Stool Culture , Ova/Parasite, Giardia/Crypto, Shiga Toxin Performed By: #### B IOGI #### [facility] [address] [place], [place] [address] Rotavirus A Not detected Normal NOT DETECTED [facility] Comment on above: Order Comment: GI Pa yaneth for: Clostridium Difficile, Stool Culture , Ova/Parasite, Giardia/Crypto, Shiga Toxin Performed By: #### B IOGI #### [facility] [address] [place], [place] [address] Salmonella Not detected Normal NOT DETECTED [facility] Comment on above: Order Comment: GI Pa yaneth for: Clostridium Difficile, Stool Culture , Ova/Parasite, Giardia/Crypto, Shiga Toxin Performed By: #### B IOGI #### [facility] [address] [place] [address] Sapovirus Not detected Normal NOT DETECTED [facility] Comment on above: Order Comment: GI Pa yaneth for: Clostridium Difficile, Stool Culture , Ova/Parasite, Giardia/Crypto, Shiga Toxin Performed By: #### B IOGI #### [facility] [address] [place] [address] Shig/E. coli (EIEC) Not detected Normal NOT DETECTED [facility] Comment on above: Order Comment: GI Pa yaneth for: Clostridium Difficile, Stool Culture , Ova/Parasite, Giardia/Crypto, Shiga Toxin Performed By: #### B IOGI #### [facility] [address] [place] [address] Vibrio Not detected Normal NOT DETECTED [facility] Comment on above: Order Comment: GI Pa yaneth for: Clostridium Difficile, Stool Culture , Ova/Parasite, Giardia/Crypto, Shiga Toxin Performed By: #### B IOGI #### [facility] [address] [place] [address] Vibrio cholerae Not detected Normal NOT DETECTED [facility] Comment on above: Order Comment: GI Pa yaneth for: Clostridium Difficile, Stool Culture , Ova/Parasite, Giardia/Crypto, Shiga Toxin Performed By: #### B IOGI #### [facility] [address] [place] [address] Viruses < VIRUSES > Normal [facility] Comment on above: Order Comment: GI Pa yaneth for: Clostridium Difficile, Stool Culture , Ova/Parasite, Giardia/Crypto, Shiga Toxin Performed By: #### B IOGI #### [facility] [address] [place] [address] Yersinia Not detected Normal NOT DETECTED [facility] Comment on above: Order Comment: GI Pa yaneth for: Clostridium Difficile, Stool Culture , Ova/Parasite, Giardia/Crypto, Shiga Toxin Performed By: #### B IOGI #### [facility] [address] [place] [address] Pneumocystis jirovecii DFAon 12-25-2022 Result/Comment SEE BELOW [facility] Comment on above: Result Comment: Pneu mocystis jirovecii (P. carinii), DFA SOURCE : SPUTUM Result/Comment: Not Detected Reference Range: Not Detected Test Performed by [facility], [employer] [facility], [address] [place] [address] Nhan Light M.D., Ph.D., Director of Laboratories , CLIA [id number] Performed By: #### P CDFA #### [facility] [address] [place] [address] XR Chest 1 view-Mobileon XR Chest 1 view-Mobile PORTABLE CHEST: CLINICAL INDICATION: R06.02: SHORTNESS OF BREATH [id number]: Cough TECHNIQUE: Portable AP COMPARISON: 12/20/2022 FINDINGS: [...] 12/22/2022 06:44 Read by: BISMARK BURTON MD, MD Date: 12/22/2022 06:44 [facility] .CBC Path Reviewon CBC Path Review Marked macrocytic an emia and marked leukocytosis with marked atypical absolute lymphocytosis and several smudge cells, suspicious for lymphoproliferative disorder. Myeloid left shift with some toxic changes also noted. Rule out infection. Rule out blood loss. Suggest further hematologic evaluation if clinically indicated. Normal [facility] ([place]) Comment on above: Result Comment: Elec tronically signed by: MAGNOLIA YANG 12.20.2022 17:10 EDT Performed By: #### C MP, TROPHS, GFR, CBC, CBCPR, LAC, PRO, DIFF, MDW ####[place] [id number]#### MORPH, APTT ####[address] [place] [address] BCIDon 12-20-2022 Acinetobacter kentrell-baumanii complex Not detected Normal Not Detected [facility] ([place]) Comment on above: Performed By: #### B PIETER ####[address] [place] [address] Bacteroides fragilis Not detected Normal Not Detected [facility] ([place]) Comment on above: Performed By: #### B PIETER ####[address] [place] [address] BCID Comment See Comment Normal [facility] ([place]) Comment on above: Result Comment: Anti microbial resistance can occur via multiple mechanisms. A Not Detected result for antimicrobial resistance gene(s) does not indicate antimicrobial susceptibility. Culture identification and susceptibility results to follow. If BCID panel was negative (Not Detected) for all targets, this does not exclude a blood stream infection. Our blood culture system detected growth. Culture identification and susceptibility testing (if appropriate) to follow. Performed By: #### B PIETER ####[address] [place] [address] Barbara albicans Not detected Normal Not Detected [facility] ([place]) Comment on above: Performed By: #### B PIETER ####[address] [place] [address] Barbara auris Not detected Normal Not Detected [facility] ([place]) Comment on above: Performed By: #### B PIETER ####[facility] [place] [address] Barbara glabrata Not detected Normal Not Detected [facility] ([place]) Comment on above: Performed By: #### B PIETER ####[address] [place] [address] Barbara krusei Not detected Normal Not Detected [facility] ([place] Comment on above: Performed By: #### B PIETER ####[address] [place], [place] [address] Barbara parapsilosis Not detected Normal Not Detected [facility] ([place] Comment on above: Performed By: #### B PIETER ####[address] [place], [place] [address] Barbara tropicalis Not detected Normal Not Detected [facility] ([place] Comment on above: Performed By: #### B PIETER ####[address] [place] [phone] Cryptococcus neoformans-gattii Not detected Normal Not Detected [facility] ([place] Comment on above: Performed By: #### B PIETER ####Hussains[address] [place] [address] CTX-M (ESBL) Not Applicable Normal Not Detected [facility] ([place] Comment on above: Performed By: #### B PIETER ####[address]ain [address] [place] [phone] E. Coli Not detected Normal Not Detected [facility] ([place]) Comment on above: Performed By: #### B PIETER ####[address] [place] [phone] Enterobacter cloacae Complex Not detected Normal Not Detected [facility] ([place] Comment on above: Performed By: #### B PIETER ####[address] [place] [phone] Enterobacterales Not detected Normal Not Detected [facility] ([place] Comment on above: Performed By: #### B PIETER ####[address] [place] [phone] Enterococcus faecalis Not detected Normal Not Detected [facility] ([place] Comment on above: Performed By: #### B PIETER ####[address] [place] [phone] Enterococcus faecium Not detected Normal Not Detected [facility] [place] Comment on above: Performed By: #### B PIETER ####[address]ains[address] [place] [address] Haemophilus influenzae Not detected Normal Not Detected [facility] [place] Comment on above: Performed By: #### B PIETER ####[address] [place] [phone] IMP (Carbapenemase) Not Applicable Normal Not Detected [facility] [place] Comment on above: Performed By: #### B PIETER ####[address] [place] [address] Klebsiella aerogenes Not detected Normal Not Detected [facility] ([place] Comment on above: Performed By: #### B PIETER ####[address] [place] [address] Klebsiella oxytoca Not detected Normal Not Detected [facility] ([place] Comment on above: Performed By: #### B PIETER ####[address] [place] [phone] Klebsiella pneumoniae group Not detected Normal Not Detected [facility] ([place] Comment on above: Performed By: #### B PIETER ####[address] [place] [address] KPC (Carbapenemase) Not Applicable Normal Not Detected [facility] ([place] Comment on above: Performed By: #### B PIETER ####[address] [place] [phone] Listeria monocytogenes Not detected Normal Not Detected [facility] ([place] Comment on above: Performed By: #### B PIETER ####[address] [place] [address] MCR-1 (Colistin Resistance) Not Applicable Normal Not Detected [facility] ([place] Comment on above: Performed By: #### B PIETER ####[address] [place] [address] Mec A/C Not Applicable Normal Not Detected [facility] ([place] Comment on above: Performed By: #### B PIETER ####[address] [place] [address] Mec A/C-MREJ (MRSA) Not Applicable Normal Not Detected [facility] ([place]) Comment on above: Performed By: #### B PIETER ####[address] [place], [place] [address] NDM (Carbapenemase) Not Applicable Normal Not Detected [facility] ([place]) Comment on above: Performed By: #### B PIETER ####[address] [place], [place] [address] Neisseria meningitidis (Encapsalated) Not detected Normal Not Detected [facility] ([place]) Comment on above: Performed By: #### B PIETER ####[address] [place] [phone] OXA-48 like (Carbapenemase) Not Applicable Normal Not Detected [facility] ([place]) Comment on above: Performed By: #### B PIETER ####[facility] [place] [phone] Proteus Not detected Normal Not Detected [facility] ([place] Comment on above: Performed By: #### B PIETER ####[address] [place] [phone] Pseudomonas aeruginosa Not detected Normal Not Detected [facility] ([place]) Comment on above: Performed By: #### B PIETER ####[facility] [place], [place] [address] S. agalactiae Org specific cx Ql (Vag fld) Not detected Normal Not Detected [facility] ([place]) Comment on above: Performed By: #### B PIETER ####[facility] [place] [phone] Salmonella species Not detected Normal Not Detected [facility] ([place]) Comment on above: Performed By: #### B PIETER ####Hussain Apxfmxabi70[address] [place] [phone] Serratia marcescens Not detected Normal Not Detected [facility] ([place]) Comment on above: Performed By: #### B PIETER ####Hussain Ywgxjjkax39[address] [place] [phone] Staphylococcus Not detected Normal Not Detected [facility] ([place]) Comment on above: Performed By: #### B PIETER ####Hussain OlivarezWwjskoybo0632 [place], [place] [address] Staphylococcus aureus Not detected Normal Not Detected [facility] ([place]) Comment on above: Result Comment: If S taphylococcus aureus is Detected, an Infectious Disease physician consult is required on identification. Performed By: #### B PIETER ####Hussain OlivarezHyplcjuzc6229 [place], [place] [address] Staphylococcus epidermidis Not detected Normal Not Detected [facility] ([place]) Comment on above: Performed By: #### B PIETER ####Hussain OlivarezTzedmzewx4863 [place], [place] [address] Staphylococcus lugdunensis Not detected Normal Not Detected [facility] ([place]) Comment on above: Performed By: #### B PIETER ####Hussain Lanen[address] [place], [place] [address] Stenotrophomonas maltophilia Not detected Normal Not Detected [facility] ([place]) Comment on above: Performed By: #### B PIETER ####Hussain OlivarezAqdutulya0265 [place], [place] [address] Streptococcus Detected Abnormal Not Detected [facility] ([place]) Comment on above: Performed By: #### B PIETER ####Hussain OlivarezUyebvecpe2298 [place], [place] [address] Streptococcus pneumoniae Detected Abnormal Not Detected [facility] ([place]) Comment on above: Performed By: #### B PIETER ####Hussain OlivarezFhfqcpfsl4218 [place], [place] [address] Streptococcus pyogenes Not detected Normal Not Detected [facility] ([place]) Comment on above: Performed By: #### B PIETER ####Hussain OlivarezWwsknmbti2607 [place], [place] [address] Van A/B Not Applicable Normal Not Detected [facility] ([place]) Comment on above: Performed By: #### B PIETER ####Hussain OlivarezCjvvvkhpi0417 [place], [place] [address] VIM (Carbapenemase) Not Applicable Normal Not Detected [facility] ([place]) Comment on above: Performed By: #### B PIETER ####Hussain Txoqcscjy7907 [place], [place] [address] [facility] 12-20-2022 CNPN Telephone (HCSIND) ADINA DAVID ([id number]) 1955 M Date Time Provider Department 12/20/22 HALLE DALE HCSIND During your visit today, we recorded the following information about you: Sue Raygoza LPN 12/20/2022 6:[address] Dale, Thank you for the referral for Adina to [facility]. In [...] Dale, Thank you for the referral for Adnia to [facility]. In [...] DALE on: 12/24/2022 08:23 AM Modules accepted: Sue Meehan LPN 12/25/2022 7:13 PM Signed Good Morning [...] Assessed Reason for Visit: Home Care [4073] Primary Visit Diagnosis:CLL (chronic lymphocytic leukemia) ([facility]) [C91.10] Order(s):CONSULT TO [facility] [[id number]] Order #: [id number]: 1 Prescriptions as of 12/26/2022 - Doxepin (SILENOR) 3 mg tab Take 1 tablet by mouth daily at bedtime. - jxwfwqwjxqc-ymlfqqfmg-wcmjs ter (TRELEGY ELLIPTA) 100-62.5-25 mcg inhalation powder Inhale [...] *10/24/2018 Stag (more content not included)... Normal [facility] XR Chest 1 view-Mobileon XR Chest 1 [...] 12/20/2022 06:33 Read by: RATNA LYONS MD, MD Date: 12/20/2022 06:33 [facility] .GFRon 12-19-2022 GFR Non- 30 ml/min/1.73sqm Normal [facility] ([place]) Comment on above: Result Comment: GFR Population [...] CBC, CBCPR, LAC, PRO, DIFF, MDW #### [facility] [address] [place] [address] #### MORPH, APTT #### [facility] [address] [place], [place] [address] GFR 36 ml/min/1.73sqm Normal [facility] ([place]) Comment on above: Result Comment: GFR Population [...] CBC, CBCPR, LAC, PRO, DIFF, MDW #### [place] [address] #### BOBBI, APTT #### [facility] [address] [place] [address] .MDWon 12-19-2022 Monocyte Distribution Width 46.30 High 0.00-20.00 [facility] ([place]) Comment on above: Result Comment: The predictive value of MDW for identifying sepsis in patients with hematological abnormalities has not been established Performed By: #### C MP, TROPHS, GFR, CBC, CBCPR, LAC, PRO, DIFF, MDW ####[place] [address]#### BOBBI, APTT ####[place] [phone] [place] [address] .Manual Diffon 12-19-2022 Basophil %, Manual 0.0 % Normal 0.0-2.5 [facility] ([place]) Comment on above: Performed By: #### C MP, TROPHS, GFR, CBC, CBCPR, LAC, PRO, DIFF, MDW ####[place] [address]#### MORPH, APTT ####[place] [address] Basophil, Abs Manual 0.0 10 3/mcL Normal 0.0-0.2 [facility] ([place]) Comment on above: Performed By: #### C MP, TROPHS, GFR, CBC, CBCPR, LAC, PRO, DIFF, MDW ####[place] [address]#### MORPH, APTT ####Hussain Jpwxoukpk6096 [place], [place] [address] Eosinophil %, Manual 0.0 % Normal 0.0-7.0 [facility] ([place]) Comment on above: Performed By: #### C MP, TROPHS, GFR, CBC, CBCPR, LAC, PRO, DIFF, MDW ####[place] [address]#### MORPH, APTT ####[place] Iwpgqxexd7650 [place], [place] [address] Eosinophil, Abs Manual 0.0 10 3/mcL Normal 0.0-0.4 [facility] ([place]) Comment on above: Performed By: #### C MP, TROPHS, GFR, CBC, CBCPR, LAC, PRO, DIFF, MDW ####[place] [address]#### MORPH, APTT ####[place] Qmkiivsqt0119 [place], [place] [address] Lymphocyte %, Manual 82.0 % High 10.0-50.0 [facility] ([place]) Comment on above: Performed By: #### C MP, TROPHS, GFR, CBC, CBCPR, LAC, PRO, DIFF, MDW ####[place] [address]#### MORPH, APTT ####[place] Eyjwgxrjl1999 [place], [place] [address] Lymphocyte, Abs Manual 42.7 10 3/mcL High 0.8-3.9 [facility] ([place]) Comment on above: Performed By: #### C MP, TROPHS, GFR, CBC, CBCPR, LAC, PRO, DIFF, MDW ####[place] [address]#### MORPH, APTT ####Hussainsabi LaneOwjpcblnu2483 [place], [place] [address] Monocyte %, Manual 2.0 % Normal 1.7-13.0 [facility] ([place]) Comment on above: Performed By: #### C MP, TROPHS, GFR, CBC, CBCPR, LAC, PRO, DIFF, MDW ####[place] [address]#### MORPH, APTT ####[place] Rtaaznzmj3612 [place], [place] [address] Monocyte, Abs Manual 1.1 10 3/mcL High 0.2-1.0 [facility] ([place]) Comment on above: Performed By: #### C MP, TROPHS, GFR, CBC, CBCPR, LAC, PRO, DIFF, MDW ####[place] [address]#### MORPH, APTT ####[facility]xy[facility]ss9444 [place], [place] [address] Neutrophil %, Manual 16.0 % Low 37.0-80.0 [facility] ([place]) Comment on above: Performed By: #### C MP, TROPHS, GFR, CBC, CBCPR, LAC, PRO, DIFF, MDW ####[place] [address]#### MORPH, APTT ####[facility] WestEciempadh7330 [place], [place] [address] Neutrophil, Abs Manual 8.3 10 3/mcL High 2.9-6.2 [facility] ([place]) Comment on above: Performed By: #### C MP, TROPHS, GFR, CBC, CBCPR, LAC, PRO, DIFF, MDW ####[place] [address]#### MORPH, APTT ####[facility] WestRosbehpwd7659 [place], [place] [address] Nucleated RBC 0.0 /100 WBC Normal [facility] ([place]) Comment on above: Performed By: #### C MP, TROPHS, GFR, CBC, CBCPR, LAC, PRO, DIFF, MDW ####[place] [address]#### MORPH, APTT ####[place] [address] [place] [address] .Morphon 12-19-2022 Hypochrom 1+ Normal [facility] ([place]) Comment on above: Performed By: #### C MP, TROPHS, GFR, CBC, CBCPR, LAC, PRO, DIFF, MDW ####[place] [address]#### MORPH, APTT ####[facility] WestXinrayhjv[address] [place] [address] Macrocytosis 1+ Normal [facility] ([place]) Comment on above: Performed By: #### C MP, TROPHS, GFR, CBC, CBCPR, LAC, PRO, DIFF, MDW ####[place] [address]#### MORPH, APTT ####[facility] [place] [address] Platelet Estimate Normal Normal [facility] ([place]) Comment on above: Performed By: #### C MP, TROPHS, GFR, CBC, CBCPR, LAC, PRO, DIFF, MDW ####[place] [address]#### MORPH, APTT ####[place] [address] Smudge Cells 1+ Normal [facility] ([place]) Comment on above: Performed By: #### C MP, TROPHS, GFR, CBC, CBCPR, LAC, PRO, DIFF, MDW ####[place] [address]#### MORPH, APTT ####[facility] WestTyipiknuh2790 [place] [address] .Urinalysis Microscopic (AO) on 12-19-2022 UA Amorphus 1+ /hpf Normal [facility] ([place]) Comment on above: Performed By: #### U A, UAMICAO #### [facility] [address] [place] [address] UA Coarse Granular Casts 0-5 Abnormal [facility] ([place]) Comment on above: Performed By: #### U A, UAMICAO #### [facility] [address] [place], [place] [address] UA RBC None Seen Normal None Seen [facility] ([place]) Comment on above: Performed By: #### U A, UAMICAO #### [facility] [address] [place], [place] [address] UA Squam Epithelial 0-5 Abnormal None Seen [facility] ([place]) Comment on above: Performed By: #### U A, UAMICAO #### [facility] [address] [place], [place] [address] UA WBC None Seen Normal None Seen [facility] ([place]) Comment on above: Performed By: #### U A, UAMICAO #### [facility] [address] [place], [place] [address] APTTon 12-19-2022 aPTT Coag (Bld) [Time] 25.2 s Normal 25.0-35.0 [facility] ([place]) Comment on above: Result Comment: For Heparin anticoagulation therapy, the recommended therapeutic range is: 50.6-87.4 seconds. Patients on heparin therapy may have an extreme result. Performed By: #### C MP, TROPHS, GFR, CBC, CBCPR, LAC, PRO, DIFF, MDW #### [place] [address] #### MORPH, APTT #### [facility] [address] [place] [address] Heparin dose (APTT) LMW Heparin Normal [facility] ([place]) Comment on above: Performed By: #### C MP, TROPHS, GFR, CBC, CBCPR, LAC, PRO, DIFF, MDW #### [place] [address] #### MORPH, APTT #### [facility] [address] [place] [address] CBCon 12-19-2022 Erythrocyte distribution width (RBC) [Ratio] 17.6 % High 11.5-14.5 [facility] ([place]) Comment on above: Performed By: #### C MP, TROPHS, GFR, CBC, CBCPR, LAC, PRO, DIFF, MDW #### [place] [address] #### MORPH, APTT #### [facility] [address] [place], [place] [address] Hematocrit (Bld) [Volume fraction] 24.3 % Low 42.0-52.0 [facility] ([place]) Comment on above: Performed By: #### C MP, TROPHS, GFR, CBC, CBCPR, LAC, PRO, DIFF, MDW #### [place] [address] #### MORPH, APTT #### [facility] [address] [place], [place] [address] Hgb 7.3 G/dL Low 14.0-18.0 [facility] ([place]) Comment on above: Performed By: #### C MP, TROPHS, GFR, CBC, CBCPR, LAC, PRO, DIFF, MDW #### [place] [address] #### MORPH, APTT #### [facility] [address] [place], [place] [address] MCH (RBC) [Entitic mass] 33.3 pg High 27.0-31.2 [facility] ([place]) Comment on above: Performed By: #### C MP, TROPHS, GFR, CBC, CBCPR, LAC, PRO, DIFF, MDW #### [place] [address] #### MORPH, APTT #### [facility] [address] [place], [place] [address] MCHC 30.2 G/dL Low 31.8-35.4 [facility] ([place]) Comment on above: Performed By: #### C MP, TROPHS, GFR, CBC, CBCPR, LAC, PRO, DIFF, MDW #### [place] [address] #### MORPH, APTT #### [facility] [address] [place], [place] [address] MCV (RBC) [Entitic vol] 110.1 fL High 80.0-94.0 [facility] ([place]) Comment on above: Performed By: #### C MP, TROPHS, GFR, CBC, CBCPR, LAC, PRO, DIFF, MDW #### [place] [address] #### MORPH, APTT #### [facility] [address] [place], [place] [address] Platelet 377 10 3/mcL Normal 130-400 [facility] ([place]) Comment on above: Performed By: #### C MP, TROPHS, GFR, CBC, CBCPR, LAC, PRO, DIFF, W #### [place] [address] #### MORPH, APTT #### [facility] [address] [place], [place] [address] Platelet mean volume (Bld) [Entitic vol] 8.6 fL Normal 7.4-10.4 [facility] ([place]) Comment on above: Performed By: #### C MP, TROPHS, GFR, CBC, CBCPR, LAC, PRO, DIFF, MDW #### [place] [address] #### MORPH, APTT #### [facility] [address] [place], [place] [address] RBC 2.21 10 6/mcL Low 4.04-6.13 [facility] ([place]) Comment on above: Performed By: #### C MP, TROPHS, GFR, CBC, CBCPR, LAC, PRO, DIFF, W #### [place] [address] #### MORPH, APTT #### [facility] [address] [place], [place] [address] WBC 52.1 10 3/mcL Critically abnormal 4.6-10.8 [facility] ([place]) Comment on above: Performed By: #### C MP, TROPHS, GFR, CBC, CBCPR, LAC, PRO, DIFF, MDW #### [place] [address] #### MORPH, APTT #### [place] [address] [place], [place] [address] CMPon 12-19-2022 Albumin Level 2.4 G/dL Low 3.4-4.8 [facility] ([place]) Comment on above: Performed By: #### C MP, TROPHS, GFR, CBC, CBCPR, LAC, PRO, DIFF, MDW #### [place] [address] #### MORPH, APTT #### [facility] [address] [place], [place] [address] Albumin/Globulin [Mass ratio] 0.7 {ratio} Low 1.1-2.5 [facility] ([place]) Comment on above: Performed By: #### C MP, TROPHS, GFR, CBC, CBCPR, LAC, PRO, DIFF, MDW #### [place] [address] #### MORPH, APTT #### [facility] [address] [place], [place] [address] ALP [Catalytic activity/Vol] 144 U/L High 40-135 [facility] ([place]) Comment on above: Performed By: #### C MP, TROPHS, GFR, CBC, CBCPR, LAC, PRO, DIFF, MDW #### [place] [address] #### MORPH, APTT #### [facility] [address] [place], [place] [address] ALT [Catalytic activity/Vol] 45 U/L Normal 16-63 [facility] ([place]) Comment on above: Performed By: #### C MP, TROPHS, GFR, CBC, CBCPR, LAC, PRO, DIFF, MDW #### [place] [address] #### MORPH, APTT #### [facility] [address] [place], [place] [address] AST [Catalytic activity/Vol] 23 U/L Normal 10-40 [facility] ([place]) Comment on above: Performed By: #### C MP, TROPHS, GFR, CBC, CBCPR, LAC, PRO, DIFF, MDW #### [place] [address] #### MORPH, APTT #### [facility] [address] [place], [place] [address] Bili Total 0.7 mg/dL Normal 0.2-1.0 [facility] ([place]) Comment on above: Result Comment: Use of this assay is not recommended for patients undergoing treatment with eltrombopag due to the potential for falsely elevated results. Performed By: #### C MP, TROPHS, GFR, CBC, CBCPR, LAC, PRO, DIFF, MDW #### [place] [address] #### MORPH, APTT #### [facility] [address] [place], [place] [address] BUN/Creatinine Ratio 13 ratio Normal 7-27 [facility] ([place]) Comment on above: Performed By: #### C MP, TROPHS, GFR, CBC, CBCPR, LAC, PRO, DIFF, MDW #### [place] [address] #### MORPH, APTT #### [facility] [address] [place], [place] [address] Calcium [Mass/Vol] 8.6 mg/dL Normal 8.4-10.2 [facility] ([place]) Comment on above: Performed By: #### C MP, TROPHS, GFR, CBC, CBCPR, LAC, PRO, DIFF, MDW #### [place] [address] #### MORPH, APTT #### [facility] [address] [place], [place] [address] Chloride [Moles/Vol] 98 mmol/L Normal 98-107 [facility] ([place]) Comment on above: Performed By: #### C MP, TROPHS, GFR, CBC, CBCPR, LAC, PRO, DIFF, MDW #### [place] [address] #### MORPH, APTT #### [facility] [address] [place], [place] [address] CO2 [Moles/Vol] 18 mmol/L Low 23-31 [facility] ([place]) Comment on above: Performed By: #### C MP, TROPHS, GFR, CBC, CBCPR, LAC, PRO, DIFF, MDW #### [place] [address] #### MORPH, APTT #### [facility] [address] [place], [place] [address] Creatinine [Mass/Vol] 2.22 mg/dL High 0.70-1.30 [facility] ([place]) Comment on above: Performed By: #### C MP, TROPHS, GFR, CBC, CBCPR, LAC, PRO, DIFF, W #### [place] [address] #### MORPH, APTT #### [facility] [address] [place], [place] [address] Electrolyte Balance 14.0 mEq/L Normal 4.0-15.0 [facility] ([place]) Comment on above: Performed By: #### C MP, TROPHS, GFR, CBC, CBCPR, LAC, PRO, DIFF, W #### [place] [address] #### MORPH, APTT #### [facility] [address] [place], [place] [address] Globulin 3.6 G/dL Normal [facility] ([place]) Comment on above: Performed By: #### C MP, TROPHS, GFR, CBC, CBCPR, LAC, PRO, DIFF, MDW #### [place] [address] #### MORPH, APTT #### [facility] [address] [place], [place] [address] Glucose [Mass/Vol] 151 mg/dL High 80-115 [facility] ([place]) Comment on above: Performed By: #### C MP, TROPHS, GFR, CBC, CBCPR, LAC, PRO, DIFF, MDW #### [place] [address] #### MORPH, APTT #### [facility] [address] [place], [place] [address] Potassium [Moles/Vol] 4.4 mmol/L Normal 3.5-5.1 [facility] ([place]) Comment on above: Performed By: #### C MP, TROPHS, GFR, CBC, CBCPR, LAC, PRO, DIFF, MDW #### [place] [address] #### MORPH, APTT #### [facility] [address] [place], [place] [address] Sodium [Moles/Vol] 130 mmol/L Low 136-145 [facility] ([place]) Comment on above: Performed By: #### C MP, TROPHS, GFR, CBC, CBCPR, LAC, PRO, DIFF, PADMINI #### [place] [address] #### MORPH, APTT #### [facility] [address] [place], [place] [address] Total Protein 6.0 G/dL Low 6.4-8.2 [facility] ([place]) Comment on above: Performed By: #### C MP, TROPHS, GFR, CBC, CBCPR, LAC, PRO, DIFF, PADMINI #### [place] [address] #### MORPH, APTT #### [facility] [address] [place], [place] [address] Urea nitrogen [Mass/Vol] 28 mg/dL High 7-18 [facility] ([place]) Comment on above: Performed By: #### C MP, TROPHS, GFR, CBC, CBCPR, LAC, PRO, DIFF, W #### [place] [address] #### MORPH, APTT #### [facility] [address] [place], [place] [address] [id number] 12-19-2022 SARS-CoV-2 (COVID-19) RNA MYA+probe Ql (Unsp spec) Negative Normal Negative [facility] ([place]) Comment on above: Performed By: #### Ira SHANTEL COVMarco9 ####[facility] [address]en[address] [place], [place] [address] SARS-CoV-2 (COVID-19) RNA MYA+probe Ql (Unsp spec) Normal [facility] ([place]) Comment on above: Result Comment: Nega tive [...] complexity tests. COVID-19 Int Performed By: #### Ira SHANTEL COVD19 ####[facility] Lanen[address] [place], [place] [address] CT HEAD OR BRAIN W/O CONTRAS Ton 12-19-2022 CT HEAD OR BRAIN W/O CONTRAST [...] Date: 12/19/2022 1:15:57 PM Ordering Provider: [facility] CT SPINE CERVICAL W/O CONTRA STon 12-19-2022 CT SPINE CERVICAL W/O CONTRAST ORIGINAL [...] Sign Date: 12/19/2022 1:17:30 PM Ordering Provider: SAM RICO [facility] CT THORAX W/O CONTRASTon CT THORAX W/O [...] SOB FINDINGS: Subcentimeter tiny thyroid lobe nodules. 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 The test is intended for use as an aid in the differential diagnosis of influenza A virus, influenza B virus, and RSV in humans and is not intended to detect influenza C. Performed By: #### F SHANTEL COVD19 ####H[address] [place], [place] [address] Flu B PCR (AO) Negative Normal Negative [facility] ([place]) Comment on above: Result Comment: Posi tive [...] virus (RSV) nucleic acid in nasopharyngeal swab (DECISION ANALYST) specimens from patients with signs and symptoms of respiratory infection in conjunction with clinical and laboratory findings. The test is intended for use as an aid in the differential diagnosis of influenza A virus, influenza B virus, and RSV in humans and is not intended to detect influenza C. Performed By: #### F SHANTEL, COVD19 ####H[place]ain [address] [place], [place] [address] RSV PCR (AO) Negative Normal Negative [facility] ([place]) Comment on above: Result Comment: Posi tive [...] REPEAT COLLECTION AND TESTING IS RECOMMENDED. [employer] Flu A/B & RSV Assay is a real-time polymerase chain reaction (PCR) based qualitative in vitro diagnostic test for the direct detection and differentiation of influenza A virus, influenza B virus, and respiratory syncytial virus (RSV) nucleic acid in nasopharyngeal swab (DECISION ANALYST) specimens from patients with signs and symptoms of respiratory infection in conjunction with clinical and laboratory findings. The test is intended for use as an aid in the differential diagnosis of influenza A virus, influenza B virus, and RSV in humans and is not intended to detect influenza C. Performed By: #### F LURSV, COVD19 ####[address] [place] [address] LACon 12-19-2022 Lactic Acid Lvl 1.5 mmol/L Normal 0.4-2.0 [facility] ([place]) Comment on above: Order Comment: Order ed secondary to Lactic Acid result greater than or equal to 2.0 Performed By: #### L AC ####[place] [address] Lactic Acid Lvl 3.4 mmol/L High 0.4-2.0 [facility] ([place]) Comment on above: Performed By: #### C MP, TROPHS, GFR, CBC, CBCPR, LAC, PRO, DIFF, MDW ####[place] [address]#### MORPH, APTT ####Hussain [address] [place] [address] Leukodepleted Red Cells Rele asedon 12-19-2022 Product Code [id number] [facility] Comment on above: Performed By: #### R LRC #### [facility] [address] [place] [address] Rel By DG [facility] Comment on above: Performed By: #### R LRC #### [facility] [address] [place] [address] Rel Date 12/19/2022 [facility] Comment on above: Performed By: #### R LRC #### [facility] [address] [place] [address] Rel Time 2115 [facility] Comment on above: Performed By: #### R LRC #### [facility] [address] [place] [address] Rel To DB [facility] Comment on above: Performed By: #### R LRC #### [facility] [address] [place] [address] [id number] [facility] Comment on above: Performed By: #### R LRC #### [facility] [address] [place] [address] PROon 12-19-2022 PT Coag (PPP) [Time] 20.4 s High 9.0-14.2 [facility] ([place]) Comment on above: Performed By: #### C MP, TROPHS, GFR, CBC, CBCPR, LAC, PRO, DIFF, MDW #### [facility] [address] [place] [address] #### MORPH, APTT #### [facility] [address] [place], [place] [address] PT International Ratio 1.8 [facility] ([place]) Comment on above: Result Comment: [employer] (CHEST, 1992, 102:312S-25S) recommended therapeutic range for oral anticoagulant therapy is: LOW RISK: Prophylaxis of venous thrombosis INR: 2.0-3.0 Treatment of pulmonary embolism 2.0-3.0 Prevention of systemic embolism 2.0-3.0 HIGH RISK: Mechanical prosthetic valves 2.5-3.5 Performed By: #### C MP, TROPHS, GFR, CBC, CBCPR, LAC, PRO, DIFF, MDW #### [place] [address] #### MORPH, APTT #### [facility] [address] [place], [place] [address] TROPHSon 12-19-2022 Troponin I High Sensitivity 428.3 ng/L High 0.0-76.2 [facility] ([place]) Comment on above: Performed By: #### T ROPHS ####[place] [address] Troponin I High Sensitivity 144.9 ng/L High 0.0-76.2 [facility] ([place]) Comment on above: Performed By: #### C MP, TROPHS, GFR, CBC, CBCPR, LAC, PRO, DIFF, MDW #### [place] [address] #### MORPH, APTT #### [address] [place], [place] [address] UAon 12-19-2022 Color (U) Yellow Normal [facility] ([place]) Comment on above: Performed By: #### U A, UAMICAO #### [address] [place], [place] [address] Glucose (U) [Mass/Vol] Negative Normal Negative [facility] ([place]) Comment on above: Performed By: #### U A, UAMICAO #### [address] [place], [place] [address] Ketones Ql (U) Negative Normal Negative [facility] ([place]) Comment on above: Performed By: #### U A, UAMICAO #### [address] [place], [place] [address] UA Appear Slightly Cloudy Abnormal Clear [facility] ([place]) Comment on above: Performed By: #### U A, UAMICAO #### [address] [place], [place] [address] UA Blood Negative Normal Negative [facility] ([place]) Comment on above: Performed By: #### U A, UAMICAO #### Hussain[address]abelle [address] [place], [place] [address] UA Leuk Est Negative Normal Negative [facility] ([place]) Comment on above: Performed By: #### U A, UAMICAO #### [address] [place], [place] [address] UA Nitrite Negative Normal Negative [facility] ([place]) Comment on above: Performed By: #### U A, UAMICAO #### [address] [place], [place] [address] UA pH 5.5 Normal 5.0 - 8.0 [facility] ([place]) Comment on above: Performed By: #### U A, UAMICAO #### [address] [place] [phone] UA Protein 100 mg/dL Abnormal Negative [facility] ([place]) Comment on above: Performed By: #### U A, UAMICAO #### [address] [place] [phone] UA Spec Grav 1.015 Normal 1.015-1.025 [facility] ([place]) Comment on above: Performed By: #### U A, UAMICAO #### [address] [place] [phone] UA Specimen Type Catheter Normal [facility] ([place]) Comment on above: Performed By: #### U A, UAMICAO #### [address] [place], [place] [address] UA Urobilinogen 0.2 E.U./dL Normal 0.2-1.0 [facility] ([place]) Comment on above: Performed By: #### U A, UAMICAO #### [address] [place] [phone] Urobilinogen (U) [Mass/Vol] Negative Normal Negative [facility] ([place]) Comment on above: Performed By: #### U A, UAMICAO #### [address] [place] [phone] CNOVon 12-13-2022 [facility] Office Visit (PULU ) ADINA DAVID ([id number]) 1955 M Date Time Provider Department 12/13/22 10:30 AM NAKUL GALLEGOS [facility] During your visit today, we recorded the following information about you: Temperature Pulse Respiration Blood pressure 96.7 degrees 107/minute 16/minute 134/76 Height 1.778 m Nakul Gallegos MD 12/13/2022 12:59 PM Signed [facility] DEPARTMENT OF PULMONARY MEDICINE Date: December 13, 2022 Patient Name: Adina David Adina David is a 67 year old yr old male, presents to the [facility] for evaluation of CIRA and insomnia. Patient [...] for internal providers or letter via the [employer] Postal Service for external providers. Patient Entered Questionnaires: PROMIS Global Health - (T-Scores - the mean of general population = 50. Five points is a clinically meaningful difference.) 05/31/2022 05/31/2022 12/05/2021 Physical T-Score 29.6 29.6 34.9 Mental T-Score 36.3 36.3 - Modified Medical Research [place] Dyspnea Scale (MMRC) I am too breathless to leave the house or I am breathless when dressing 4 Daily cough: Yes Daily Sputum: Yes IMMUNIZATIONS: Immunization History Administered Date(s) Administered COVID-19 original vaccine, age 12+ yr, monovalent ([employer] - [place] [employer]) 07/24/2021 COVID-19 original vaccine, [...] live (ZOSTAVAX (more content not included)... Normal [facility] ADINA DAVID ([id number]) 1955 Date Time Provider Department 12/12/22 ULISES RAMOS [facility] During your visit today, we recorded the following information about you: Allergies As of Date: 12/12/2022 Noted Allergy Reaction DOXYCYCLINE 07/17/2021 5 - Intolerance Comments: Rash, diarrhea PENICILLIN 02/22/2017 4 - Hives PENICILLIN V POTASSIUM 12/20/2021 14 - Other: See Comments Date Reviewed: 12/05/2022 Reviewed by: Amy Bach, RN - Fully Assessed Prescriptions as of 12/12/2022 - dzfhdhpktei-rxmnjaott-vnlki ter (TRELEGY ELLIPTA) 100-62.5-25 mcg inhalation powder Inhale [...] unspecified chronicity, uns*12/01/2022 Coronary artery disease involving [place] falcon*12/02/2022 Other emphysema (HCC) [J43.8] 12/02/2022 Chronic [...] Status:Closed by DARRELL DOUGLAS on 12/12/22 Normal [facility] Basic metabolic 2000 panelon 12-11-2022 Anion gap [Moles/Vol] 15 mmol/L Normal 9-18 [facility] Comment on above: Order Comment: Speci men Type: BLOOD SPECIMENOrdering Facility: [facility] Address: [address] [place] [address] Performed By: #### 1 9123-9, 17071-7 ####[facility] LABCLIA [id number] [place] [address] [place] Calcium [Mass/Vol] 10.4 mg/dL High 8.5-10.2 [facility] Comment on above: Order Comment: Speci men Type: BLOOD SPECIMENOrdering Facility: [facility] Address: [address] [address] Performed By: #### 1 91239, 77751-2 ####[facility] LABCLIA [id number] [place] [address] [place] Chloride [Moles/Vol] 102 mmol/L Normal 97-105 [facility] Comment on above: Order Comment: Speci men Type: BLOOD SPECIMENOrdering Facility: [facility] Address: [address] [address] Performed By: #### 1 9123-9, 53415-2 ####[facility] LABCLIA [id number] [place] [address] [place] CO2 [Moles/Vol] 20 mmol/L Low 22-30 [facility] Comment on above: Order Comment: Speci men Type: BLOOD SPECIMENOrdering Facility: [facility] Address: [address] [place] [address] Performed By: #### 1 9123-9, 60653-5 ####[facility] LABCLIA [id number] [address] Creatinine [Mass/Vol] 2.33 mg/dL High 0.73-1.22 [facility] Comment on above: Order Comment: Speci men Type: BLOOD SPECIMENOrdering Facility: [facility] Address: [address] [place] [address] Performed By: #### 1 9123-9, 42538-4 ####[facility] LABIA [id number] [address] Creatinine and Glomerular filtration rate.predicted panel (S/P/Bld) 30 mL/min/1.73m??? Low >=60 [facility] Comment on above: Order Comment: Speci men Type: BLOOD SPECIMENOrdering Facility: [facility] Address: [address] [place] [address] Result Comment: Mady mated Glomerular Filtration Rate [...] actual GFR. Performed By: #### 1 9123-9, 87424-6 ####[facility] LABCLIA [id number] [place] [address] [place] Glucose [Mass/Vol] 107 mg/dL High 74-99 [facility] Comment on above: Order Comment: Speci men Type: BLOOD SPECIMENOrdering Facility: [facility] Address: [address] [place], [place] [address] Result Comment: The Italian Diabetes Association (ADA) provides guidance for cutoff [...] Standards of Medical Care in Diabetes 2016, Italian Diabetes Association. Diabetes Care. 2016.39(Suppl 1). Performed By: #### 1 9123-9, 27865-8 ####[facility] LABCLIA [id number] [place] [address] [place] Potassium [Moles/Vol] 4.6 mmol/L Normal 3.7-5.1 [facility] Comment on above: Order Comment: Speci men Type: BLOOD SPECIMENOrdering Facility: [facility] Address: [address] [place], [place] [address] Performed By: #### 1 9123-9, ####[facility] LABIA [id number] [place] [address] [place] Sodium [Moles/Vol] 137 mmol/L Normal 136-144 [facility] Comment on above: Order Comment: Speci men Type: BLOOD SPECIMENOrdering Facility: [facility] Address: [address] [place], [place] [address] Performed By: #### 1 9123, ####[facility] LABCLIA [id number] [place] [address] [place] Urea nitrogen [Mass/Vol] 45 mg/dL High 9-24 [facility] Comment on above: Order Comment: Speci men Type: BLOOD SPECIMENOrdering Facility: [facility] Address: [address] [address] Performed By: #### 1 9123-9, 46379-5 ####[facility] LABIA [id number] [address] [place] CBC panel Auto (Bld)on 12-11 Erythrocyte distribution width (RBC) [Ratio] 17.2 % High 11.5-15.0 [facility] Comment on above: Order Comment: Speci men Type: BLOOD SPECIMENOrdering Facility: [facility] Address: [address] [place] [address] Performed By: #### 5 8410-2 ####[facility] LABIA [id number] [address] [place] Hematocrit (Bld) [Volume fraction] 28.3 % Low 39.0-51.0 [facility] Comment on above: Order Comment: Speci men Type: BLOOD SPECIMENOrdering Facility: [facility] Address: [address] [place] [address] Performed By: #### 5 8410-2 ####[facility] LABIA [id number] [address] [place] Hemoglobin (Bld) [Mass/Vol] 8.4 g/dL Low 13.0-17.0 [facility] Comment on above: Order Comment: Speci men Type: BLOOD SPECIMENOrdering Facility: [facility] Address: [address] [place] [address] Performed By: #### 5 8410-2 ####[facility] LABIA [id number] [address] [place] MCH (RBC) [Entitic mass] 33.3 pg Normal 26.0-34.0 [facility] Comment on above: Order Comment: Speci men Type: BLOOD SPECIMENOrdering Facility: [facility] Address: [address] [place] [address] Performed By: #### 5 8410-2 ####[facility] LABIA [id number] [address] STATES [facility] MCHC (RBC) [Mass/Vol] 29.7 g/dL Low 30.5-36.0 [facility] Comment on above: Order Comment: Speci men Type: BLOOD SPECIMENOrdering Facility: [facility] Address: [address] [place] [address] Performed By: #### 5 8410-2 ####[facility] LABIA [id number] [place] [address] [place] MCV (RBC) [Entitic vol] 112.3 fL High 80.0-100.0 [facility] Comment on above: Order Comment: Speci men Type: BLOOD SPECIMENOrdering Facility: [facility] Address: [address] [place] [address] Performed By: #### 5 8410-2 ####[facility] [id number] [place] [address] [place] Nucleated RBC (Bld) [#/Vol] 10*3/uL Normal <0.01 [facility] Comment on above: Order Comment: Speci men Type: BLOOD SPECIMENOrdering Facility: [facility] Address: [address] [place] [address] Performed By: #### 5 8410-2 ####[facility] LABIA [id number] [address] [place] Platelet mean volume (Bld) [Entitic vol] 9.5 fL Normal 9.0-12.7 [facility] Comment on above: Order Comment: Speci men Type: BLOOD SPECIMENOrdering Facility: [facility] Address: [address] [place] [address] Performed By: #### 5 8410-2 ####[facility] [id number] [place] [id number] [place] Platelets (Bld) [#/Vol] 423 10*3/uL High 150-400 [facility] Comment on above: Order Comment: Speci men Type: BLOOD SPECIMENOrdering Facility: [facility] Address: [address] [place] [address] Performed By: #### 5 8410-2 ####[facility] LABCLIA [id number] [place] [address] [place] RBC (Bld) [#/Vol] 2.52 10*6/uL Low 4.20-6.00 [facility] Comment on above: Order Comment: Speci men Type: BLOOD SPECIMENOrdering Facility: [facility] Address: [address] [place] [address] Performed By: #### 5 8410-2 ####[facility] LABCLIA [id number] [place] [address] [place] WBC (Bld) [#/Vol] 37.75 10*3/uL High 3.70-11.00 [facility] Comment on above: Order Comment: Speci men Type: BLOOD SPECIMENOrdering Facility: [facility] Address: [address] [place] [address] Performed By: #### 5 8410-2 ####[facility] LABCLIA [id number] [place] [address] [facility] [place] CNDSon 12-11-2022 CNDS HNO ID: [id number] Author: Carole Pascal MD Service: General Internal Medicine Author Type: Physician Type: Discharge Summary Filed: 12/23/2022 10:47 AM Note Text: DISCHARGE SUMMARY PATIENT NAME: Adina David ADMISSION DATE: 12/01/2022 DISCHARGE DATE: 12/11/2022 ATTENDING PHYSICIAN: Carole Pascal MD Code Status: Full Code PCP: Ulises aRmos DO Highest Readmission Risk Score: 31 The [...] Yes) Active Problems: Coronary artery disease involving [place] coronary artery of [place] heart without angina pectoris (POA: Unknown) Other [...] group. Antic (more content not included)... Normal [facility] CONSULT PROGon 12-11-2022 CONSULT PROG HNO ID: [id number] Author: Yolette Grajeda APRN.STERNMAN Service: Vascular Medicine Author Type: Nurse Practitioner [...] (Oral) Resp 18 Ht 177.8 cm (5' 10) Wt 81.1 kg (178 lb 11.2 oz) [...] December 11, 2022 TIME: 12:07 PM pager: [phone] . Normal [facility] Magnesium SerPl-mCncon 12-11 Magnesium [Mass/Vol] 1.5 mg/dL Low 1.7-2.3 [facility] Comment on above: Order Comment: Kaylee christianson Type: BLOOD SPECIMENOrdering Facility: [facility] Address: [address] [place] [address] Performed By: #### 1 9123-9, 64029-1 ####[facility] LABCLIA [id number] [address] THERAPY NTon 12-11-2022 THERAPY NT HNO ID: [id number] Author: Eileen Maldonado, PT, DPT Service: Physical Therapy Author Type: Physical Therapist Type: Therapy (PT/OT/Speech/Resp) Filed: 12/11/2022 9:06 AM Note Text: PHYSICAL THERAPY COMMUNICATION NOTE SERVICE DATE: 12/11/2022 SERVICE TIME: 06 ROOM: [place] [address] Physical therapy consult received. Chart reviewed. No [...] December 11, 2022 TIME: 9:06 AM Normal [facility] TYPE + SCREENon 12-11-2022 ABO B Normal [facility] Comment on above: Order Comment: Speci men Type: BLOOD SPECIMENOrdering Facility: [facility] Address: [address] [address] Performed By: #### T SCR ####CC MAIN BLOOD BANKCLIA [id number] [address] STATES [facility] HISTORICAL AB SCR STATUS Negative Normal [facility] Comment on above: Order Comment: Speci men Type: BLOOD SPECIMENOrdering Facility: [facility] Address: [address] [address] Performed By: #### T SCR ####CC MAIN BLOOD BANKCLIA [id number] [place] [address] [place] Rh Nom (Bld) Positive Normal [facility] Comment on above: Order Comment: Speci men Type: BLOOD SPECIMENOrdering Facility: [facility] Address: [address] [place] [address] Performed By: #### T SCR ####CC MAIN BLOOD BANKCLIA [id number] [address] [place] TYPE AND SCREEN EXPIRATION 12/14/2022 23:59 Normal [facility] Comment on above: Order Comment: Speci men Type: BLOOD SPECIMENOrdering Facility: [facility] Address: [address] [place] [address] Performed By: #### T SCR ####CC MAIN BLOOD BANKCLIA [id number] [place] [address] [place] Basic metabolic 2000 panelon 12-10-2022 Anion gap [Moles/Vol] 14 mmol/L Normal 9-18 [facility] Comment on above: Order Comment: Speci men Type: BLOOD SPECIMENOrdering Facility: [facility] Address: [address] [place] [address] Performed By: #### 1 9123-9, 55356-9 ####[facility] LABCLIA [id number] [place] [address] [place] Calcium [Mass/Vol] 10.9 mg/dL High 8.5-10.2 [facility] Comment on above: Order Comment: Speci men Type: BLOOD SPECIMENOrdering Facility: [facility] Address: [address] [place], [place] [address] Performed By: #### 1 9123-9, 06222-1 ####[facility] LABCLIA [id number] [place] [address] [place] Chloride [Moles/Vol] 100 mmol/L Normal 97-105 [facility] Comment on above: Order Comment: Speci men Type: BLOOD SPECIMENOrdering Facility: [facility] Address: [address] [place], [place] [address] Performed By: #### 1 [address], ####[facility] LABCLIA [id number] [address] [place] CO2 [Moles/Vol] 19 mmol/L Low 22-30 [facility] Comment on above: Order Comment: Speci men Type: BLOOD SPECIMENOrdering Facility: [facility] Address: [address] [place], [place] [address] Performed By: #### 1 912[address], ####[facility] LABCLIA [id number] [place] [address] [place] Creatinine [Mass/Vol] 2.26 mg/dL High 0.73-1.22 [facility] Comment on above: Order Comment: Speci men Type: BLOOD SPECIMENOrdering Facility: [facility] Address: [address] [place] [address] Performed By: #### 1 91239, 15609-0 ####[facility] LABCLIA [id number] [place] [address] [place] Creatinine and Glomerular filtration rate.predicted panel (S/P/Bld) 31 mL/min/1.73m??? Low >=60 [facility] Comment on above: Order Comment: Kaylee christianson Type: BLOOD SPECIMENOrdering Facility: [facility] Address: [address] [place] [address] Result Comment: Mady mated Glomerular Filtration Rate [...] actual GFR. Performed By: #### 1 9123-9, 68301-9 ####[facility] [id number] [place] [address] [place] Glucose [Mass/Vol] 85 mg/dL Normal 74-99 [facility] Comment on above: Order Comment: Kaylee christianson Type: BLOOD SPECIMENOrdering Facility: [facility] Address: [address] [place] [address] Result Comment: The [employer] Diabetes Association (ADA) provides guidance for cutoff [...] Standards of Medical Care in Diabetes 2016, [place] Diabetes Association. Diabetes Care. 2016.39(Suppl 1). Performed By: #### 1 9123-9, 83050-7 ####[facility] [id number] [place] [address] [place] Potassium [Moles/Vol] 5.3 mmol/L High 3.7-5.1 [facility] Comment on above: Order Comment: Kaylee christianson Type: BLOOD SPECIMENOrdering Facility: [facility] Address: [address] Performed By: #### 1 9123-9, 73092-7 ####[facility] LABCLIA [id number] [place] [address] [place] Sodium [Moles/Vol] 133 mmol/L Low 136-144 [facility] Comment on above: Order Comment: Speci men Type: BLOOD SPECIMENOrdering Facility: [facility] Address: [address] [place] [address] Performed By: #### 1 9123-9, 80695-4 ####[facility] LABIA [id number] [place] [address] [place] Urea nitrogen [Mass/Vol] 41 mg/dL High 9-24 [facility] Comment on above: Order Comment: Speci men Type: BLOOD SPECIMENOrdering Facility: [facility] Address: [address] [address] Performed By: #### 1 9123-9, 54190-9 ####[facility] LABIA [id number] [place] [address] [place] CBC panel Auto (Bld)on 12-10 Erythrocyte distribution width (RBC) [Ratio] 17.2 % High 11.5-15.0 [facility] Comment on above: Order Comment: Speci men Type: BLOOD SPECIMENOrdering Facility: [facility] Address: [address] [place], [place] [address] Performed By: #### 5 8410-2 ####[facility] LABIA [id number] [place] [address] [place] Hematocrit (Bld) [Volume fraction] 28.8 % Low 39.0-51.0 [facility] Comment on above: Order Comment: Speci men Type: BLOOD SPECIMENOrdering Facility: [facility] Address: [address] [place], [place] [address] Performed By: #### 5 8410-2 ####[facility] LABIA [id number] [place] [address] [place] Hemoglobin (Bld) [Mass/Vol] 8.7 g/dL Low 13.0-17.0 [facility] Comment on above: Order Comment: Speci men Type: BLOOD SPECIMENOrdering Facility: [facility] Address: [address] [place] [address] Performed By: #### 5 8410-2 ####[facility] LABIA [id number] [place] [address] [place] MCH (RBC) [Entitic mass] 33.6 pg Normal 26.0-34.0 [facility] Comment on above: Order Comment: Speci men Type: BLOOD SPECIMENOrdering Facility: [facility] Address: [address] [place] [address] Performed By: #### 5 8410-2 ####[facility] [id number] [address] [place] MCHC (RBC) [Mass/Vol] 30.2 g/dL Low 30.5-36.0 [facility] Comment on above: Order Comment: Speci men Type: BLOOD SPECIMENOrdering Facility: [facility] Address: [address] [place] [address] Performed By: #### 5 8410-2 ####[facility] [id number] [place] [address] [place] MCV (RBC) [Entitic vol] 111.2 fL High 80.0-100.0 [facility] Comment on above: Order Comment: Speci men Type: BLOOD SPECIMENOrdering Facility: [facility] Address: [address] [place] [address] Performed By: #### 5 8410-2 ####[facility] [id number] [place] [id number] [address] [place] Nucleated RBC (Bld) [#/Vol] 10*3/uL Normal <0.01 [facility] Comment on above: Order Comment: Speci men Type: BLOOD SPECIMENOrdering Facility: [facility] Address: [address] [place], [place] [address] Performed By: #### 5 8410-2 ####[facility] LABCLIA [id number] [place] [address] [place] Platelet mean volume (Bld) [Entitic vol] 9.4 fL Normal 9.0-12.7 [facility] Comment on above: Order Comment: Speci men Type: BLOOD SPECIMENOrdering Facility: [facility] Address: [address] [place], [place] [address] Performed By: #### 5 8410-2 ####[facility] LABCLIA [id number] [place] [address] [place] Platelets (Bld) [#/Vol] 446 10*3/uL High 150-400 [facility] Comment on above: Order Comment: Speci men Type: BLOOD SPECIMENOrdering Facility: [facility] Address: [address] [place], [place] [address] Performed By: #### 5 8410-2 ####[facility] LABCLIA [id number] [place] [address] [place] RBC (Bld) [#/Vol] 2.59 10*6/uL Low 4.20-6.00 [facility] Comment on above: Order Comment: Speci men Type: BLOOD SPECIMENOrdering Facility: [facility] Address: [address] [place] [address] Performed By: #### 5 8410-2 ####[facility] LABCLIA [id number] [place] [address] [place] WBC (Bld) [#/Vol] 43.34 10*3/uL High 3.70-11.00 [facility] Comment on above: Order Comment: Speci men Type: BLOOD SPECIMENOrdering Facility: [facility] Address: [address] [place] [address] Performed By: #### 5 8410-2 ####[facility] LABCLIA [id number] SOMMER ZUNIGA [id number] [place], [place] [address] [place] CONSULT PROGon 12-10-2022 CONSULT PROG HNO ID: [id number] Author: Sophie Avila APRN.STERNMAN Service: Vascular Medicine Author Type: Nurse Practitioner [...] December 10, 2022 TIME: 12:46 PM pager: [phone] . Normal [facility] Magnesium SerPl-Amadouon 12-10 Magnesium [Mass/Vol] 1.7 mg/dL Normal 1.7-2.3 [facility] Comment on above: Order Comment: Speci men Type: BLOOD SPECIMENOrdering Facility: [facility] Address: [address] [place] [address] [place] [address] Performed By: #### 1 9123-9, 15552-2 ####[facility] LABCLIA [id number] [address] OF [facility] NUTRITIONon 12-10-2022 NUTRITION HNO ID: [id number] Author: Tony Powell RD Service: Nutrition Therapy [...] Weight loss, Imaging studies Estimated kilocalorie needs: 3768-5319 Calorie Calculation Method: 25-30 kcals/kg Estimated protein [...] December 10, 2022 TIME: 10:57 AM Normal [facility] Basic metabolic 2000 panelon 12-09-2022 Anion gap [Moles/Vol] 13 mmol/L Normal 9-18 [facility] Comment on above: Order Comment: Speci men Type: BLOOD SPECIMENOrdering Facility: [facility] Address: [address] [place] [address] Performed By: #### 2 2, ####[facility] LABCLIA [id number] [place] [address] [place] Calcium [Mass/Vol] 10.2 mg/dL Normal 8.5-10.2 [facility] Comment on above: Order Comment: Speci men Type: BLOOD SPECIMENOrdering Facility: [facility] Address: [address] [address] Performed By: #### 2 4320-05, ####[facility] LABCLIA [id number] [place] [address] [place] Chloride [Moles/Vol] 101 mmol/L Normal 97-105 [facility] Comment on above: Order Comment: Speci men Type: BLOOD SPECIMENOrdering Facility: [facility] Address: [address] Performed By: #### 2 4320-05, ####[facility] LABCLIA [id number] [place] [address] [place] CO2 [Moles/Vol] 19 mmol/L Low 22-30 [facility] Comment on above: Order Comment: Speci men Type: BLOOD SPECIMENOrdering Facility: [facility] Address: [address] Performed By: #### 2 43204-15, ####[facility] LABIA [id number] [place] [address] [place] Creatinine [Mass/Vol] 2.10 mg/dL High 0.73-1.22 [facility] Comment on above: Order Comment: Speci men Type: BLOOD SPECIMENOrdering Facility: [facility] Address: [address] Performed By: #### 2 4322, ####[facility] [id number] [address] OF [facility] Creatinine and Glomerular filtration rate.predicted panel (S/P/Bld) 33 mL/min/1.73m??? Low >=60 [facility] Comment on above: Order Comment: Kaylee men Type: BLOOD SPECIMENOrdering Facility: [facility] Address: [address] [address] Result Comment: Mady mated Glomerular Filtration Rate [...] reflect actual GFR. Performed By: #### 2 43204-15, ####[facility] LABIA [id number] [place] [address] [place] Glucose [Mass/Vol] 102 mg/dL High 74-99 [facility] Comment on above: Order Comment: Speci men Type: BLOOD SPECIMENOrdering Facility: [facility] Address: [address] [address] Result Comment: The [employer] Diabetes Association (ADA) provides guidance for cutoff [...] Standards of Medical Care in Diabetes 2016, [place] Diabetes Association. Diabetes Care. 2016.39(Suppl 1). Performed By: #### 2 4320-05, ####[facility] LABCLIA [id number] [place] [address] [place] Potassium [Moles/Vol] 4.7 mmol/L Normal 3.7-5.1 [facility] Comment on above: Order Comment: Speci men Type: BLOOD SPECIMENOrdering Facility: [facility] Address: [address] [place], [place] [address] Performed By: #### 2 4320-05, ####[facility] LABIA [id number] [place] [address] [place] Sodium [Moles/Vol] 133 mmol/L Low 136-144 [facility] Comment on above: Order Comment: Noyi men Type: BLOOD SPECIMENOrdering Facility: [facility] Address: [address] [place], [place] [address] Performed By: #### 2 4320-05, ####[facility] LABCLIA [id number] [place] [address] [place] Urea nitrogen [Mass/Vol] 35 mg/dL High 9-24 [facility] Comment on above: Order Comment: Speci men Type: BLOOD SPECIMENOrdering Facility: [facility] Address: [address] Performed By: #### 2 4320-05, ####[facility] LABCLIA [id number] [address] [place] CBC panel Auto (Bld)on 12-09 Erythrocyte distribution width (RBC) [Ratio] 17.1 % High 11.5-15.0 [facility] Comment on above: Order Comment: Speci men Type: BLOOD SPECIMENOrdering Facility: [facility] Address: [address] [place] [address] Performed By: #### 5 8410-2 ####[facility] [id number] [address] [place] Hematocrit (Bld) [Volume fraction] 27.9 % Low 39.0-51.0 [facility] Comment on above: Order Comment: Speci men Type: BLOOD SPECIMENOrdering Facility: [facility] Address: [address] [place] [address] Performed By: #### 5 8410-2 ####[facility] LABIA [id number] [address] [place] Hemoglobin (Bld) [Mass/Vol] 8.5 g/dL Low 13.0-17.0 [facility] Comment on above: Order Comment: Speci men Type: BLOOD SPECIMENOrdering Facility: [facility] Address: [address] [place], [place] [address] Performed By: #### 5 8410-2 ####[facility] LABIA [id number] [place] [address] [place] MCH (RBC) [Entitic mass] 33.9 pg Normal 26.0-34.0 [facility] Comment on above: Order Comment: Speci men Type: BLOOD SPECIMENOrdering Facility: [facility] Address: [address] [place], [place] [address] Performed By: #### 5 8410-2 ####[facility] LABIA [id number] [address] [place] MCHC (RBC) [Mass/Vol] 30.5 g/dL Normal 30.5-36.0 [facility] Comment on above: Order Comment: Speci men Type: BLOOD SPECIMENOrdering Facility: [facility] Address: [address] Performed By: #### 5 8410-2 ####[facility] LABIA [id number] [address] [place] MCV (RBC) [Entitic vol] 111.2 fL High 80.0-100.0 [facility] Comment on above: Order Comment: Speci men Type: BLOOD SPECIMENOrdering Facility: [facility] Address: [address] [place], [place] [address] Performed By: #### 5 8410-2 ####[facility] LABIA [id number] [place] [address] [place] Nucleated RBC (Bld) [#/Vol] 10*3/uL Normal <0.01 [facility] Comment on above: Order Comment: Speci men Type: BLOOD SPECIMENOrdering Facility: [facility] Address: [address] [place], [place] [address] Performed By: #### 5 8410-2 ####[facility] LABIA [id number] [place] [address] [place] Platelet mean volume (Bld) [Entitic vol] 9.4 fL Normal 9.0-12.7 [facility] Comment on above: Order Comment: Speci men Type: BLOOD SPECIMENOrdering Facility: [facility] Address: [address] [place] [address] Performed By: #### 5 8410-2 ####[facility] LABIA [id number] [place] [address] [place] Platelets (Bld) [#/Vol] 421 10*3/uL High 150-400 [facility] Comment on above: Order Comment: Speci men Type: BLOOD SPECIMENOrdering Facility: [facility] Address: [address] [address] Performed By: #### 5 8410-2 ####[facility] LABCLIA [id number] [place] [address] [place] RBC (Bld) [#/Vol] 2.51 10*6/uL Low 4.20-6.00 [facility] Comment on above: Order Comment: Speci men Type: BLOOD SPECIMENOrdering Facility: [facility] Address: [address] [address] Performed By: #### 5 8410-2 ####[facility] LABIA [id number] [place] [address] [place] WBC (Bld) [#/Vol] 34.52 10*3/uL High 3.70-11.00 [facility] Comment on above: Order Comment: Speci men Type: BLOOD SPECIMENOrdering Facility: [facility] Address: [address] [address] Performed By: #### 5 8410-2 ####[facility] LABIA [id number] [place] [address] [place] CNCOon 12-09-2022 CNCO Letter Text [facility] CONSULTon 12-09-2022 CONSULT HNO ID: [id number] Author: Kristi Humphreys MD Service: Hematology/Oncology Author [...] recommend close follow-up with the patient's outpatient police officer once his current clinical picture improves enough [...] Levin MD Date: 12/10/2022 Time: 10:37 PM [facility] LYMPHOMA/MYELOMA SERVICE - INITIAL CONSULT DATE OF [...] Infectious work (more content not included)... Normal [facility] Magnesium SerPl-mCncon 12-09 Magnesium [Mass/Vol] 1.7 mg/dL Normal 1.7-2.3 [facility] Comment on above: Order Comment: Speci men Type: BLOOD SPECIMENOrdering Facility: [facility] Address: [address] [place] [address] Performed By: #### 2 4321-2, ####[facility] LABCLIA [id number] [facility] [place] [id number] [place] Albumin SerPl-mCncon 023 Albumin [Mass/Vol] 4.0 g/dL Normal 3.9-4.9 [facility] Comment on above: Order Comment: Speci men Type: BLOOD SPECIMENOrdering Facility: [facility] Address: [address] [place] [address] Performed By: #### 2 4321-2, 7, 2776-04, ####[facility] LABCLIA [id number] [facility] [place] [address] [place] Basic metabolic 2000 panelon 12-08-2022 Anion gap [Moles/Vol] 13 mmol/L Normal 9-18 [facility] Comment on above: Order Comment: Speci men Type: BLOOD SPECIMENOrdering Facility: [facility] Address: [address] [place] [address] Performed By: #### 2 4321-2, 1750-7, 2776-04, ####[facility] LABCLIA [id number] [facility] [place] [address] [place] Calcium [Mass/Vol] 10.3 mg/dL High 8.5-10.2 [facility] Comment on above: Order Comment: Speci men Type: BLOOD SPECIMENOrdering Facility: [facility] Address: [address] [place] [address] Performed By: #### 2 4321-2, 1750-7, 2776-, ####[facility] LABCLIA [id number] [place] [address] [place] Chloride [Moles/Vol] 100 mmol/L Normal 97-105 [facility] Comment on above: Order Comment: Speci men Type: BLOOD SPECIMENOrdering Facility: [facility] Address: [address] [place] [address] Performed By: #### 2 4321-2, 1750-7, 27710-12, ####[facility] LABCLIA [id number] [place] [address] [place] CO2 [Moles/Vol] 19 mmol/L Low 22-30 [facility] Comment on above: Order Comment: Speci men Type: BLOOD SPECIMENOrdering Facility: [facility] Address: [address] [place] [address] Performed By: #### 2 4321-2, 1750-7, 27710-12, ####[facility] LABCLIA [id number] [place] [address] [place] Creatinine [Mass/Vol] 2.35 mg/dL High 0.73-1.22 [facility] Comment on above: Order Comment: Speci men Type: BLOOD SPECIMENOrdering Facility: [facility] Address: [address] [place] [address] Performed By: #### 2 4321-2, 175-7, 27710-12, ####[facility] LABCLIA [id number] [place] [address] [place] Creatinine and Glomerular filtration rate.predicted panel (S/P/Bld) 29 mL/min/1.73m??? Low >=60 [facility] Comment on above: Order Comment: Speci men Type: BLOOD SPECIMENOrdering Facility: [facility] Address: [address] [place] [address] Result Comment: Mady mated Glomerular Filtration Rate [...] Performed By: #### 2 4321-2, 1750-10, 2776-04, ####[facility] LABCLIA [id number] [address] [address] [place] Glucose [Mass/Vol] 111 mg/dL High 74-99 [facility] Comment on above: Order Comment: Kaylee christianson Type: BLOOD SPECIMENOrdering Facility: [facility] Address: [address] [address] Result Comment: The [place] Diabetes Association (ADA) provides guidance for cutoff [...] Standards of Medical Care in Diabetes 2016, [place] Diabetes Association. Diabetes Care. 2016.39(Suppl 1). Performed By: #### 2 4321-2, 1750-10, 2776-04, ####[facility] LABCLIA [id number] [place] [id number] [place] Potassium [Moles/Vol] 4.8 mmol/L Normal 3.7-5.1 [facility] Comment on above: Order Comment: Kaylee christianson Type: BLOOD SPECIMENOrdering Facility: [facility] Address: [address] [id number] Performed By: #### 2 4321-2, 1750-10, 2776-04, ####[facility] LABCLIA [id number] [place] [address] [place] Sodium [Moles/Vol] 132 mmol/L Low 136-144 [facility] Comment on above: Order Comment: Speci men Type: BLOOD SPECIMENOrdering Facility: [facility] Address: [address] [place] [address] Performed By: #### 2 4321-2, 1750-7, 277-, ####[facility] LABIA [id number] [place] [address] [place] Urea nitrogen [Mass/Vol] 34 mg/dL High 9-24 [facility] Comment on above: Order Comment: Speci men Type: BLOOD SPECIMENOrdering Facility: [facility] Address: [address] [place] [address] Performed By: #### 2 4321-2, 7, 27710-12, ####[facility] LABIA [id number] [place] [address] [place] CBC panel Auto (Bld)on 12-08 Erythrocyte distribution width (RBC) [Ratio] 17.0 % High 11.5-15.0 [facility] Comment on above: Order Comment: Speci men Type: BLOOD SPECIMENOrdering Facility: [facility] Address: [address] [place] [address] Performed By: #### 5 8410-2 ####[facility] LABIA [id number] [place] [address] [place] Hematocrit (Bld) [Volume fraction] 27.1 % Low 39.0-51.0 [facility] Comment on above: Order Comment: Speci men Type: BLOOD SPECIMENOrdering Facility: [facility] Address: [address] [place] [address] Performed By: #### 5 8410-2 ####[facility] LABIA [id number] [place] Hemoglobin (Bld) [Mass/Vol] 8.2 g/dL Low 13.0-17.0 [facility] Comment on above: Order Comment: Speci men Type: BLOOD SPECIMENOrdering Facility: [facility] Address: [address] [place] [address] Performed By: #### 5 8410-2 ####[facility] LABIA [id number] [address] MCH (RBC) [Entitic mass] 33.9 pg Normal 26.0-34.0 [facility] Comment on above: Order Comment: Speci men Type: BLOOD SPECIMENOrdering Facility: [facility] Address: [address] [place] [address] Performed By: #### 5 8410-2 ####[facility] LABIA [id number] [address] STATES [facility] MCHC (RBC) [Mass/Vol] 30.3 g/dL Low 30.5-36.0 [facility] Comment on above: Order Comment: Speci men Type: BLOOD SPECIMENOrdering Facility: [facility] Address: [address] [place], [place] [address] Performed By: #### 5 8410-2 ####[facility] LABIA [id number] [address] [place] MCV (RBC) [Entitic vol] 112.0 fL High 80.0-100.0 [facility] Comment on above: Order Comment: Speci men Type: BLOOD SPECIMENOrdering Facility: [facility] Address: [address] [place], [place] [address] Performed By: #### 5 8410-2 ####[facility] LABIA [id number] [address] [place] Nucleated RBC (Bld) [#/Vol] 10*3/uL Normal <0.01 [facility] Comment on above: Order Comment: Speci men Type: BLOOD SPECIMENOrdering Facility: [facility] Address: [address] Performed By: #### 5 8410-2 ####[facility] LABCLIA [id number] [place] [address] [place] Platelet mean volume (Bld) [Entitic vol] 9.2 fL Normal 9.0-12.7 [facility] Comment on above: Order Comment: Speci men Type: BLOOD SPECIMENOrdering Facility: [facility] Address: [address] [place], [place] [address] Performed By: #### 5 8410-2 ####[facility] LABCLIA [id number] [place] [address] [place] Platelets (Bld) [#/Vol] 436 10*3/uL High 150-400 [facility] Comment on above: Order Comment: Speci men Type: BLOOD SPECIMENOrdering Facility: [facility] Address: [address] [place], [place] [address] Performed By: #### 5 8410-2 ####[facility] LABIA [id number] [place] [address] [place] RBC (Bld) [#/Vol] 2.42 10*6/uL Low 4.20-6.00 [facility] Comment on above: Order Comment: Speci men Type: BLOOD SPECIMENOrdering Facility: [facility] Address: [address] [place], [place] [address] Performed By: #### 5 8410-2 ####[facility] LABCLIA [id number] [place] [address] [place] WBC (Bld) [#/Vol] 36.26 10*3/uL High 3.70-11.00 [facility] Comment on above: Order Comment: Speci men Type: BLOOD SPECIMENOrdering Facility: [facility] Address: [address] [place] [address] Performed By: #### 5 8410-2 ####[facility] LABCLIA [id number] LILLIANAEstrellita EFRAIN [id number] [address] [place] CONSULT PROGon 12-08-2022 CONSULT PROG HNO ID: [id number] Author: Quintin Haywood MD Service: Infectious Disease [...] Reviewed for Today's Visit: Most recent labs Impression/Recommendations 67 yo gentleman with a h/o renal [...] December 08, 2022 TIME: 8:58 PM Normal [facility] Magnesium SerPl-mCncon 12-08 Magnesium [Mass/Vol] 1.7 mg/dL Normal 1.7-2.3 [facility] Comment on above: Order Comment: Speci men Type: BLOOD SPECIMENOrdering Facility: [facility] Address: [address] [place] [address] Performed By: #### 2 4321-2, 1751-7, 2777-1, 66407-5 ####[facility] LABCLIA [id number] [address] [place] NUTRITIONon 12-08-2022 NUTRITION HNO ID: [id number] Author: Elysia Murillo DTR Service: Nutrition Therapy Author Type: Section Chief Type: Nutrition Filed: 12/08/2022 12:09 PM Note Text: NUTRITION THERAPY BINDING CUTTER NOTE SERVICE DATE: 12/08/2022 SERVICE TIME: 925 [...] December 08, 2022 TIME: 12:09 PM Normal [facility] Phosphate SerPl-mCncon 12-08 Phosphate [Mass/Vol] 4.1 mg/dL Normal 2.7-4.8 [facility] Comment on above: Order Comment: Speci men Type: BLOOD SPECIMENOrdering Facility: [facility] Address: [address] [place] [address] Performed By: #### 2 4321-2, 1751-7, 2777-1, 14210-4 ####[facility] [id number] [place] [address] [place] Renal function 2000 panelon 12-08-2022 Albumin [Mass/Vol] 3.7 g/dL Low 3.9-4.9 [facility] Comment on above: Order Comment: Speci men Type: BLOOD SPECIMENOrdering Facility: [facility] Address: [address] [address] Performed By: #### 2 4362-6 ####[facility] [id number] [place] [address] [place] Anion gap [Moles/Vol] 13 mmol/L Normal 9-18 [facility] Comment on above: Order Comment: Speci men Type: BLOOD SPECIMENOrdering Facility: [facility] Address: [address] [address] Performed By: #### 2 4362-6 ####[facility] LABCLIA [id number] [place] [address] [place] Calcium [Mass/Vol] 10.0 mg/dL Normal 8.5-10.2 [facility] Comment on above: Order Comment: Speci men Type: BLOOD SPECIMENOrdering Facility: [facility] Address: [address] [place], [place] [address] Performed By: #### 2 4362-6 ####[facility] LABCLIA [id number] [place] [address] [place] Chloride [Moles/Vol] 102 mmol/L Normal 97-105 [facility] Comment on above: Order Comment: Speci men Type: BLOOD SPECIMENOrdering Facility: [facility] Address: [address] [place] [address] Performed By: #### 2 4362-6 ####[facility] LABCLIA [id number] [place] [address] [place] CO2 [Moles/Vol] 18 mmol/L Low 22-30 [facility] Comment on above: Order Comment: Speci men Type: BLOOD SPECIMENOrdering Facility: [facility] Address: [address] [place], [place] [address] Performed By: #### 2 4362-6 ####[facility] LABCLIA [id number] [place] [address] [place] Creatinine [Mass/Vol] 2.37 mg/dL High 0.73-1.22 [facility] Comment on above: Order Comment: Speci men Type: BLOOD SPECIMENOrdering Facility: [facility] Address: [address] [place], [place] [address] Performed By: #### 2 4362-6 ####[facility] LABCLIA [id number] [place] [address] [place] Creatinine and Glomerular filtration rate.predicted panel (S/P/Bld) 29 mL/min/1.73m??? Low >=60 [facility] Comment on above: Order Comment: Kaylee christianson Type: BLOOD SPECIMENOrdering Facility: [facility] Address: [address] [place] [address] Result Comment: Mady mated Glomerular Filtration Rate [...] actual GFR. Performed By: #### 2 4362-6 ####[facility] LABCLIA [id number] [place] [address] [place] Glucose [Mass/Vol] 99 mg/dL Normal 74-99 [facility] Comment on above: Order Comment: Kaylee christianson Type: BLOOD SPECIMENOrdering Facility: [facility] Address: [address] [place] [address] Result Comment: The [place] Diabetes Association (ADA) provides guidance for cutoff [...] Standards of Medical Care in Diabetes 2016, [place] Diabetes Association. Diabetes Care. 2016.39(Suppl 1). Performed By: #### 2 4362-6 ####[facility] LABCLIA [id number] [place] [id number] [place] Phosphate [Mass/Vol] 4.5 mg/dL Normal 2.7-4.8 [facility] Comment on above: Order Comment: Speci men Type: BLOOD SPECIMENOrdering Facility: [facility] Address: [address] [address] Performed By: #### 2 4362-6 ####[facility] LABCLIA [id number] [place] [address] [place] Potassium [Moles/Vol] 5.2 mmol/L High 3.7-5.1 [facility] Comment on above: Order Comment: Speci men Type: BLOOD SPECIMENOrdering Facility: [facility] Address: [address] [address] Performed By: #### 2 4362-6 ####[facility] LABCLIA [id number] [place] [address] [place] Sodium [Moles/Vol] 133 mmol/L Low 136-144 [facility] Comment on above: Order Comment: Speci men Type: BLOOD SPECIMENOrdering Facility: [facility] Address: [address] [address] Performed By: #### 2 4362-6 ####[facility] LABCLIA [id number] [place] [address] [place] Urea nitrogen [Mass/Vol] 34 mg/dL High 9-24 [facility] Comment on above: Order Comment: Speci men Type: BLOOD SPECIMENOrdering Facility: [facility] Address: [address] [address] Performed By: #### 2 4362-6 ####[facility] LABCLIA [id number] [place] [address] [place] TYPE + SCREENon 12-08-2022 ABO B Normal [facility] Comment on above: Order Comment: Speci men Type: BLOOD SPECIMENOrdering Facility: [facility] Address: [address] [place] [address] Performed By: #### T SCR ####CC [facility] BLOOD BANKCLIA [id number] [address] STATES [facility] HISTORICAL AB SCR STATUS Negative Normal [facility] Comment on above: Order Comment: Speci men Type: BLOOD SPECIMENOrdering Facility: [facility] Address: [address] [address] Performed By: #### T SCR ####CC [facility] BLOOD BANKCLIA [id number] [address] [place] Rh Nom (Bld) Positive Normal [facility] Comment on above: Order Comment: Speci men Type: BLOOD SPECIMENOrdering Facility: [facility] Address: [address] [address] Performed By: #### T SCR ####CC [facility] BLOOD BANKCLIA [id number] [address] OF [facility] TYPE AND SCREEN EXPIRATION 12/11/2022 23:59 Normal [facility] Comment on above: Order Comment: Speci men Type: BLOOD SPECIMENOrdering Facility: [facility] Address: [address] [address] Performed By: #### T SCR ####CC [facility] BLOOD BANKCLIA [id number] [place] [address] [place] Basic metabolic 2000 panelon 12-07-2022 Anion gap [Moles/Vol] 13 mmol/L Normal 9-18 [facility] Comment on above: Order Comment: Speci men Type: BLOOD SPECIMENOrdering Facility: [facility] Address: [address] Performed By: #### 1 9123-9, 39461-4 ####[facility] LABCLIA [id number] [place] [address] [place] Calcium [Mass/Vol] 10.0 mg/dL Normal 8.5-10.2 [facility] Comment on above: Order Comment: Speci men Type: BLOOD SPECIMENOrdering Facility: [facility] Address: [address] Performed By: #### 1 9123-9, 34694-0 ####[facility] LABCLIA [id number] [place] [address] [place] Chloride [Moles/Vol] 104 mmol/L Normal 97-105 [facility] Comment on above: Order Comment: Speci men Type: BLOOD SPECIMENOrdering Facility: [facility] Address: [address] [place], [place] [address] Performed By: #### 1 9123-9, 19049-7 ####[facility] LABIA [id number] [place] [address] [place] CO2 [Moles/Vol] 19 mmol/L Low 22-30 [facility] Comment on above: Order Comment: Speci men Type: BLOOD SPECIMENOrdering Facility: [facility] Address: [address] [place] [address] Performed By: #### 1 9123-9, 90675-7 ####[facility] LABIA [id number] [place] [address] [place] Creatinine [Mass/Vol] 2.14 mg/dL High 0.73-1.22 [facility] Comment on above: Order Comment: Speci men Type: BLOOD SPECIMENOrdering Facility: [facility] Address: [address] [place] [address] Performed By: #### 1 9123-9, 16170-1 ####[facility] LABIA [id number] [place] [address] [place] Creatinine and Glomerular filtration rate.predicted panel (S/P/Bld) 33 mL/min/1.73m??? Low >=60 [facility] Comment on above: Order Comment: Speci men Type: BLOOD SPECIMENOrdering Facility: [facility] Address: [address] [place] [address] Result Comment: Mady mated Glomerular Filtration Rate [...] actual GFR. Performed By: #### 1 9123-9, 33768-7 ####[facility] LABCLIA [id number] [place] [address] [place] Glucose [Mass/Vol] 96 mg/dL Normal 74-99 [facility] Comment on above: Order Comment: Kaylee christianson Type: BLOOD SPECIMENOrdering Facility: [facility] Address: [address] [address] Result Comment: The [place] Diabetes Association (ADA) provides guidance for cutoff [...] Standards of Medical Care in Diabetes 2016, [place] Diabetes Association. Diabetes Care. 2016.39(Suppl 1). Performed By: #### 1 9123-9, 89251-5 ####[facility] LABCLIA [id number] [place] [id number] [place] Potassium [Moles/Vol] 5.3 mmol/L High 3.7-5.1 [facility] Comment on above: Order Comment: Kaylee christianson Type: BLOOD SPECIMENOrdering Facility: [facility] Address: [address] [id number] Performed By: #### 1 9123-9, 69111-9 ####[facility] LABCLIA [id number] [place] [address] [place] Sodium [Moles/Vol] 136 mmol/L Normal 136-144 [facility] Comment on above: Order Comment: Speci men Type: BLOOD SPECIMENOrdering Facility: [facility] Address: [address] [place], [place] [address] Performed By: #### 1 9123-9, 25414-7 ####[facility] LABCLIA [id number] [place] [address] [place] Urea nitrogen [Mass/Vol] 31 mg/dL High 9-24 [facility] Comment on above: Order Comment: Speci men Type: BLOOD SPECIMENOrdering Facility: [facility] Address: [address] [place] [address] Performed By: #### 1 9123-9, 46878-5 ####[facility] LABCLIA [id number] [place] [address] [place] CBC panel Auto (Bld)on 12-07 Erythrocyte distribution width (RBC) [Ratio] 17.1 % High 11.5-15.0 [facility] Comment on above: Order Comment: Speci men Type: BLOOD SPECIMENOrdering Facility: [facility] Address: [address] [place], [place] [address] Performed By: #### 5 8410-2 ####[facility] LABCLIA [id number] [place] [address] [place] Hematocrit (Bld) [Volume fraction] 27.3 % Low 39.0-51.0 [facility] Comment on above: Order Comment: Speci men Type: BLOOD SPECIMENOrdering Facility: [facility] Address: [address] [place], [place] [address] Performed By: #### 5 8410-2 ####[facility] LABCLIA [id number] [place] [address] [place] Hemoglobin (Bld) [Mass/Vol] 8.3 g/dL Low 13.0-17.0 [facility] Comment on above: Order Comment: Speci men Type: BLOOD SPECIMENOrdering Facility: [facility] Address: [address] Performed By: #### 5 8410-2 ####[facility] LABIA [id number] [address] [place] MCH (RBC) [Entitic mass] 34.4 pg High 26.0-34.0 [facility] Comment on above: Order Comment: Speci men Type: BLOOD SPECIMENOrdering Facility: [facility] Address: [address] Performed By: #### 5 8410-2 ####[facility] LABIA [id number] [address] [place] MCHC (RBC) [Mass/Vol] 30.4 g/dL Low 30.5-36.0 [facility] Comment on above: Order Comment: Speci men Type: BLOOD SPECIMENOrdering Facility: [facility] Address: [address] Performed By: #### 5 8410-2 ####[facility] LABIA [id number] [address] [place] MCV (RBC) [Entitic vol] 113.3 fL High 80.0-100.0 [facility] Comment on above: Order Comment: Speci men Type: BLOOD SPECIMENOrdering Facility: [facility] Address: [address] Performed By: #### 5 8410-2 ####[facility] LABIA [id number] [address] [place] Nucleated RBC (Bld) [#/Vol] 10*3/uL Normal <0.01 [facility] Comment on above: Order Comment: Speci men Type: BLOOD SPECIMENOrdering Facility: [facility] Address: [address] Performed By: #### 5 8410-2 ####[facility] LABCLIA [id number] [place] [address] [place] Platelet mean volume (Bld) [Entitic vol] 9.2 fL Normal 9.0-12.7 [facility] Comment on above: Order Comment: Speci men Type: BLOOD SPECIMENOrdering Facility: [facility] Address: [address] [place], [place] [address] Performed By: #### 5 8410-2 ####[facility] LABCLIA [id number] [place] [address] [place] Platelets (Bld) [#/Vol] 429 10*3/uL High 150-400 [facility] Comment on above: Order Comment: Speci men Type: BLOOD SPECIMENOrdering Facility: [facility] Address: [address] [place], [place] [address] Performed By: #### 5 8410-2 ####[facility] LABCLIA [id number] [place] [address] [place] RBC (Bld) [#/Vol] 2.41 10*6/uL Low 4.20-6.00 [facility] Comment on above: Order Comment: Speci men Type: BLOOD SPECIMENOrdering Facility: [facility] Address: [address] [place] [address] Performed By: #### 5 8410-2 ####[facility] LABCLIA [id number] [place] [address] [place] WBC (Bld) [#/Vol] 34.46 10*3/uL High 3.70-11.00 [facility] Comment on above: Order Comment: Speci men Type: BLOOD SPECIMENOrdering Facility: [facility] Address: [address] [place], [place] [address] Performed By: #### 5 8410-2 ####[facility] LABCLIA [id number] [place] [id number] [facility] [place] CONSULT PROGon 12-07-2022 CONSULT PROG HNO ID: [id number] Author: Quintin Haywood MD Service: Infectious Disease [...] Visit: Most recent labs and imaging results. Impression/Recommendations 67 yo gentleman with a h/o renal [...] December 07, 2022 TIME: 9:05 PM Normal [facility] HISTOPLASMA AG URINEon 12-07 H. capsulatum Ag (U) [Mass/Vol] <0.2 Normal <0.2 [facility] Comment on above: Order Comment: Speci men Type: URINE SPECIMENOrdering Facility: [facility] Address: [address] [place] [address] Performed By: #### U HISTO ####[facility] LABCLIA [id number] [place] [address] [place] H. capsulatum Ag IA Ql (U) Negative Normal Negative [facility] Comment on above: Order Comment: Speci men Type: URINE SPECIMENOrdering Facility: [facility] Address: [address] [place] [address] Result Comment: Hist oplasma galactomannan antigen, urine test is used as an aid in diagnosing histoplasmosis. A negative result cannot rule out infection. Low positive results may at times be due to cross-reactivity with Blastomyces, Talaromyces marneffei, Paracoccidioides, and some Barbara species. Clinical radiological, and epidemiological correlation is required. Performed By: #### U HISTO ####[facility] LABCLIA [id number] [place] [address] [place] Magnesium SerPl-mCncon 12-07 Magnesium [Mass/Vol] 1.6 mg/dL Low 1.7-2.3 [facility] Comment on above: Order Comment: Speci men Type: BLOOD SPECIMENOrdering Facility: [facility] Address: [address] [place] [address] Performed By: #### 1 9123-9, 27729-8 ####[facility] LABCLIA [id number] [address] [id number] [address] [facility] Culture Sputum w/ Gram Stain on 11-06-2022 Culture Sputum w/ Gram Stain Direct Exam: >25 WBC's per low power field >25 Epithelial Cells per low power field Gram stain indicates excessive oral contamination. Culture will not be interpreted. Please re-order and re-submit if clinically indicated. Susceptibility Data: [facility] Comment on above: Order Comment: TODD p erformed at additional charge when indicated Performed By: #### C XSPUTM #### [facility] [address] [place], [place] [id number] CBC W Auto Differential pane l (Bld)on 10-16-2022 Anisocytosis Ql (Bld) Present [facility] Basophils (Bld) [#/Vol] 0.00 10*3/uL <0.11 k/uL [facility] Basophils/100 WBC (Bld) 0.0 % [facility] Differential cell count method Nom (Bld) Manual [facility] Eosinophils (Bld) [#/Vol] 0.00 10*3/uL <0.46 k/uL [facility] Eosinophils/100 WBC (Bld) 0.0 % [facility] Erythrocyte distribution width (RBC) [Ratio] 19.9 % High 11.5 - 15.0 % [facility] Hematocrit (Bld) [Volume fraction] 34.7 % Low 39.0 - 51.0 % [facility] Hemoglobin (Bld) [Mass/Vol] 10.2 g/dL Low 13.0 - 17.0 g/dL [facility] Lymphocytes (Bld) [#/Vol] 28.70 10*3/uL High 1.00 - 4.00 k/uL [facility] Lymphocytes/100 WBC (Bld) 76.0 % [facility] Lymphocytes/100 WBC (Bld) 6.0 % [facility] MCH (RBC) [Entitic mass] 31.4 pg 26.0 - 34.0 pg [facility] MCHC (RBC) [Mass/Vol] 29.4 g/dL Low 30.5 - 36.0 g/dL [facility] MCV (RBC) [Entitic vol] 106.8 fL High 80.0 - 100.0 fL [facility] Monocytes (Bld) [#/Vol] 0.38 10*3/uL <0.87 k/uL [facility] Monocytes/100 WBC (Bld) 1.0 % [facility] Neutrophils (Bld) [#/Vol] 6.42 10*3/uL 1.45 - 7.50 k/uL [facility] Neutrophils/100 WBC (Bld) 17.0 % [facility] Nucleated RBC (Bld) [#/Vol] <0.01 k/uL [facility] Nucleated RBC/100 WBC (Bld) [Ratio] 0.0 /100 WBC [facility] Ovalocytes LM Ql (Bld) Few [facility] Platelet mean volume (Bld) [Entitic vol] 9.7 fL 9.0 - 12.7 fL [facility] Platelets (Bld) [#/Vol] 615 10*3/uL High 150 - 400 k/uL [facility] Platelets Estimate (Bld) [#/Vol] Increased [facility] RBC (Bld) [#/Vol] 3.25 10*6/uL Low 4.20 - 6.0 0 m/uL [facility] Red Cell Morph Reviewed: see result s of individual morphologies [facility] WBC (Bld) [#/Vol] 37.76 10*3/uL High 3.70 - 11.00 k/uL [facility] TYPE + SCREENon 10-16-2022 ABO B [facility] HIstorical Ab Scr Status Negative [facility] Rh Nom (Bld) Positive [facility] Type and Screen Expiration 10/19/2022 23:59 [facility] COLONOSCOPY DIAGNOSTICon [facility] ENTEROSCOPYon 10-09-[address] [facility] [address] CHEST W IVCONon Radiology Result ACTIONABLE Abnormal [facility] US DVT LOWER LTon 07-04-2022 [facility] Influenza virus A and B RNA and SARS-CoV-2 (COVID-19) N gene panel MYA+probe (Resp)on 04-17-2022 [facility] RNA MYA+probe Ql (Unsp spec) Negative Negative for Influenza A by RT-PCR [facility] FLUBV RNA MYA+probe Ql (Unsp spec) Negative Negative for Influenza B by RT-PCR [facility] SARS-CoV-2 (COVID-19) RNA MYA+probe Ql (Resp) SARS-CoV-2 (Agent of COVID-19) Not Detected by RT-PCR or equivalent method. Not Detected [facility] No Panel Informationon 04-17 [facility] Surgical Pathology Depar tmenton 01-20-2022 [facility] Surgical Pathology Department Name ADINA DAVID Pathologist: AALIYAH MONSALVE MD Date of Procedure: 01/20/2022 Date Received: 01/21/2022 Date Reported 01/30/2022 Submitting Physician: JAKOB BLOKC Location: [facility] Other External # [id number] FINAL DIAGNOSIS A. HERNIA SAC: -- FIBROADIPOSE TISSUE CONSISTENT WITH HERNIA SAC. Electronically Signed Out By AALIYAH MONSALVE MD/CALOS By the signature on this report, the individual or group listed as making the Final Interpretation/Diagnosis certifies that they have reviewed this case. Diagnostic interpretation performed at [facility] [address] [facility] [address] Clinical History: Incarcerated inguinal hernia Specimens Submitted As: A: HERNIA SAC Other Case Numbers [id number] Gross Description: Received in formalin, labeled with the patient's name and hospital number and hernia sac, is a membraneous segment of tissue measuring 1.0 x 6.5 x 2.0 cm. Areas of induration, nodularity, hemorrhage, necrosis are not seen. Traffic Reporter sections are submitted in one cassette. WILLIAM hart/01/23/2022 [facility] Department of Pathology [address] [place] [address] Normal [facility] Comment on above: Performed By: #### U [facility] #### [facility] Surgical Pathology Department [address] [facility] [address] XR CHEST 2V FRONTAL/LATon XR CHEST 2V [...] thoracic spine. IMPRESSION: No acute radiographic abnormality. Juice Tester: ISABELLE Transcribe Date/Time: Mar 30 2020 2:14P Dictated by : EULALIO ADAMS MD This examination was interpreted and the report reviewed and electronically signed by: EULALIO ADAMS MD on Mar 30 2020 2:15PM EST Normal [facility] No Panel Information [facility] Vital Signs Date Time Vital Sign Value Performing Clinician Facility 05-26-2024 10:11-0500 Heart rate 100 /min REJI STEEN MD [facility] 05-26-2024 07:58-0500 Heart rate 95 /min REJI STEEN MD [facility] 05-26-2024 07:58-0500 Respiratory rate 16 /min REJI STEEN MD [facility] 05-26-2024 07:56-0500 Blood Pressure Cuff Size REJI STEEN MD [facility] 05-26-2024 07:56-0500 Blood Pressure Location REJI STEEN MD [address] [place] [address] 05-26-2024 07:56-0500 Blood Pressure Method REJI STEEN MD [address] [place] [address] 05-26-2024 07:56-0500 Body temperature 97.88 [degF] REJI STEEN MD [address] 05-26-2024 07:56-0500 Diastolic Blood Pressure Non-Invasive 83 mm[Hg] REJI STEEN MD [address] 05-26-2024 07:56-0500 Heart rate 81 /min REJI STEEN MD [address] 05-26-2024 07:56-0500 Reason For Taking VItal Signs REJI STEEN MD [address] 05-26-2024 07:56-0500 Respiratory rate 16 /min REJI STEEN MD [address] [place] [address] 05-26-2024 07:56-0500 Systolic Blood Pressure Non-Invasive 158 mm[Hg] REJI STEEN MD [address] [place] [address] 05-25-2024 21:58-0500 Blood Pressure Cuff Size REJI STEEN MD [address] [place] [address] 05-25-2024 21:58-0500 Blood Pressure Location REJI STEEN MD [address] [place] [address] 05-25-2024 21:58-0500 Blood Pressure Method REJI STEEN MD [address] [place] [address] 05-25-2024 21:58-0500 Body temperature 97.88 [degF] REJI STEEN MD [facility] 05-25-2024 21:58-0500 Diastolic Blood Pressure Non-Invasive 76 mm[Hg] REIJ STEEN MD [address] [place] [address] 05-25-2024 21:58-0500 Heart rate 99 /min REJI STEEN MD [address] [place] [address] 05-25-2024 21:58-0500 Respiratory rate 16 /min REJI STEEN MD [address] [place] [address] 05-25-2024 21:58-0500 Systolic Blood Pressure Non-Invasive 135 mm[Hg] REJI STEEN MD [address] 05-25-2024 15:07-0500 Body temperature 97.88 [degF] REJI STEEN MD [address] 05-25-2024 15:07-0500 Diastolic Blood Pressure Non-Invasive 74 mm[Hg] REJI STEEN MD [address] [place] [address] 05-25-2024 15:07-0500 Reason For Taking VItal Signs REJI STEEN MD [address] [place] [address] 05-25-2024 15:07-0500 Signs/Symptoms Transfusion Reaction REJI STEEN MD [address] [place] [address] 05-25-2024 15:07-0500 Systolic Blood Pressure Non-Invasive 112 mm[Hg] REJI STEEN MD [address] [place] [address] 05-25-2024 14:32-0500 Heart rate 106 /min REJI STEEN MD [address] [place] [address] 05-25-2024 14:32-0500 Reason For Taking VItal Signs REJI STEEN MD [address] [place] [address] 05-25-2024 14:07-0500 Diastolic blood pressure 75 mm[Hg] REJI STEEN MD [address] [place] [address] 05-25-2024 14:07-0500 Signs/Symptoms Transfusion Reaction REJI STEEN MD [facility] 05-25-2024 14:07-0500 Systolic blood pressure 118 mm[Hg] REJI STEEN MD [address] [place] [address] 05-25-2024 14:01-0500 Signs/Symptoms Transfusion Reaction No REJI STEEN MD [address] [place] [address] 05-25-2024 10:19-0500 Heart rate 90 /min REJI STEEN MD [address] [place] [address] 05-25-2024 10:10-0500 Heart rate 92 /min REJI STEEN MD [address] [place] [address] 05-25-2024 07:52-0500 Blood Pressure Cuff Size REJI STEEN MD [address] [place] [address] 05-25-2024 07:52-0500 Blood Pressure Location REJI STEEN MD [address] [place] [address] 05-25-2024 07:52-0500 Blood Pressure Method REJI STEEN MD [address] [place] [address] 05-25-2024 07:52-0500 Body temperature 98.78 [degF] REJI STEEN MD [address] [place] [address] 05-24-2024 16:21-0500 Body temperature 97.7 [degF] REJI STEEN MD [address] [place] [address] 05-24-2024 16:21-0500 Heart rate 80 /min REJI STEEN MD [address] [place] [address] 05-24-2024 15:45-0500 Body temperature 97.88 [degF] REJI STEEN MD [address] [place] [address] 05-24-2024 15:45-0500 Heart rate 82 /min REJI STEEN MD [address] [place] [address] 05-24-2024 15:45-0500 Mean blood pressure 82 mm[Hg] REJI STEEN MD [address] [place] [address] 05-24-2024 15:15-0500 Mean blood pressure 83 mm[Hg] REJI STEEN MD [address] [place] [address] 05-24-2024 15:04-0500 Mean blood pressure 82 mm[Hg] REJI STEEN MD [address] [place] [address] 05-24-2024 14:17-0500 Body temperature 97.88 [degF] REJI STEEN MD [address] [place] [address] 05-24-2024 14:15-0500 Respiratory Rate - Anes 0 br/min REJI STEEN MD [address] [place] [address] 05-24-2024 14:10-0500 Respiratory Rate - Anes 21 br/min REJI STEEN MD [address] [place] [address] 05-24-2024 14:05-0500 Respiratory Rate - Anes 22 br/min REJI STEEN MD [address] [place] [address] 05-24-2024 13:10-0500 Body temperature 97.7 [degF] REJI STEEN MD [address] [place] [address] 05-23-2024 15:38-0500 Body height 175.3 cm REJI STEEN MD [address] [place] [address] 05-23-2024 15:38-0500 Body weight 81.8 kg REJI STEEN MD [address] [place] [address] 05-23-2024 15:38-0500 Body weight 26.62 kg/m2 REJI STEEN MD [address] [place] [address] 05-23-2024 09:50-0500 Body weight 81.8 kg REJI STEEN MD [address] [place] [address] 05-03-2024 11:08-0500 Heart rate 88 /min THERESA KENNEDY DO [address] [place] [address] 05-03-2024 11:08-0500 Respiratory rate 20 /min THERESA KENNEDY DO [address] [place] [address] 05-03-2024 08:00-0500 Heart rate 101 /min THERESA KENNEDY DO [address] [place] [address] 05-03-2024 06:33-0500 Heart rate 85 /min THERESA MARIA D DO [address] [place] [address] 05-03-2024 06:33-0500 Respiratory rate 18 /min THERESA KENNEDY DO [address] 05-03-2024 04:30-0500 Reason For Taking VItal Signs THERESA KENNEDY DO [address] [place] [address] 05-03-2024 03:17-0500 Blood Pressure Cuff Size THERESA KENNEDY DO [address] [place] [address] 05-03-2024 03:17-0500 Blood Pressure Location THERESA KENNEDY DO [address] [place] [address] 05-03-2024 03:17-0500 Blood Pressure Method THERESA KENNEDY DO [address] [place] [address] 05-03-2024 03:17-0500 Body temperature 97.88 [degF] THERESA KENNEDY DO [address] [place] [address] 05-03-2024 03:17-0500 Diastolic Blood Pressure Non-Invasive 60 mm[Hg] THERESA KENNEDY DO [address] [place] [address] 05-03-2024 03:17-0500 Respiratory rate 18 /min THERESA KENNEDY DO [address] [place] [address] 05-03-2024 03:17-0500 Systolic Blood Pressure Non-Invasive 103 mm[Hg] THERESA KENNEDY DO [address] [place] [address] 05-02-2024 23:27-0500 Body temperature 98.42 [degF] THERESA KENNEDY DO [facility] 05-02-2024 23:27-0500 Diastolic Blood Pressure Non-Invasive 55 mm[Hg] THERESA MARIA D [facility] 05-02-2024 23:27-0500 Heart rate 86 /min THERESA MARIA D [facility] 05-02-2024 23:27-0500 Systolic Blood Pressure Non-Invasive 110 mm[Hg] THERESA MARIA D [facility] 05-02-2024 19:51-0500 Diastolic Blood Pressure Non-Invasive 65 mm[Hg] THERESA MARIA D [facility] 05-02-2024 19:51-0500 Systolic Blood Pressure Non-Invasive 127 mm[Hg] THERESA MARIA D [facility] 05-02-2024 19:45-0500 Body temperature 98.24 [degF] THERESA MARIA D [facility] 05-02-2024 11:50-0500 Blood Pressure Cuff Size THERESA MARIA D [facility] 05-02-2024 11:50-0500 Blood Pressure Location THERESA MARIA D [facility] 05-02-2024 11:50-0500 Blood Pressure Method THERESA MARIA DLILLIAM SIERRA [facility] 05-02-2024 08:06-0500 Heart rate 91 /min THERESA MARIA D [facility] 05-02-2024 07:54-0500 Blood Pressure Cuff Size THERESA MARIA D [facility] 05-02-2024 07:54-0500 Blood Pressure Location THERESA MARIA D [facility] 05-02-2024 07:54-0500 Blood Pressure Method THERESA MARIA D [facility] 05-02-2024 03:10-0500 Heart rate 95 /min THERESA KENNEDY DO [facility] 05-02-2024 00:37-0500 Body height 177.8 cm THERESA KENNEDY DO [facility] 05-02-2024 00:37-0500 Body weight 85.9 kg THERESA KENNEDY DO [facility] 05-02-2024 00:37-0500 Body weight 27.17 kg/m2 THERESA KENNEDY DO [facility] 05-01-2024 23:00-0500 Diastolic Blood Pressure Non-Invasive 67 mm[Hg] DIMITRY JIMENES MD [facility] 05-01-2024 23:00-0500 Heart rate 100 /min DIMITRY JIMENES MD [facility] 05-01-2024 23:00-0500 Systolic Blood Pressure Non-Invasive 109 mm[Hg] DIMITRY JIMENES MD [facility] 05-01-2024 22:21-0500 Diastolic Blood Pressure Non-Invasive 66 mm[Hg] DIMITRY JIMENES MD [facility] 05-01-2024 22:21-0500 Heart rate 103 /min DIMITRY JIMENES MD [facility] 05-01-2024 22:21-0500 Respiratory rate 16 /min DIMITRY JIMENES MD [facility] 05-01-2024 22:21-0500 Systolic Blood Pressure Non-Invasive 118 mm[Hg] DIMITRY JIMENES MD [facility] 05-01-2024 21:14-0500 Diastolic Blood Pressure Non-Invasive 71 mm[Hg] DIMITRY JIMENES MD [facility] 05-01-2024 21:14-0500 Heart rate 104 /min DIMITRY JIMENES MD [facility] 05-01-2024 21:14-0500 Respiratory rate 20 /min DIMITRY JIMENES MD [facility] 05-01-2024 21:14-0500 Systolic Blood Pressure Non-Invasive 104 mm[Hg] DIMITRY JIMENES MD [facility] 05-01-2024 15:46-0500 Mean blood pressure 58 mm[Hg] DIMITRY JIMENES MD [facility] 05-01-2024 15:21-0500 Mean blood pressure 80 mm[Hg] DIMITRY JIMENES MD [facility] 05-01-2024 15:21-0500 Reason For Taking VItal Signs DIMITRY JIMENES MD [facility] 05-01-2024 15:00-0500 Mean blood pressure 67 mm[Hg] DIMITRY JIMENES MD [facility] 05-01-2024 14:46-0500 Reason For Taking VItal Signs DIMITRY JIMENES MD [facility] 05-01-2024 13:38-0500 Blood Pressure Location DIMIRTY JIMENES MD [facility] 05-01-2024 13:38-0500 Body temperature 98.6 [degF] DIMITRY JIMENES MD [facility] 01-01-2024 10:00-0400 Heart rate 108 /min Heaven Shelley CERTIFIED [employer] FACILITY OPERATOR Work Phone: [facility] 01-01-2024 10:00-0400 SaO2% (BldA) [Mass fraction] 98 % Heaven Shelley CERTIFIED [employer] FACILITY OPERATOR Work Phone: [facility] 12-24-2023 12:00-0400 Diastolic blood pressure 91 mm[Hg] Андрей Mon PT Work Phone: [facility] 12-24-2023 12:00-0400 Systolic blood pressure 140 mm[Hg] Андрей Mon PT Work Phone: [facility] 10-17-2023 12:52-0400 Body temperature 97.81 [degF] Deysi Chikis PROPAGATION MANAGER - [employer] Work Phone: [facility] 10-17-2023 12:52-0400 Diastolic blood pressure 86 mm[Hg] Deysi Chikis PROPAGATION MANAGER - [employer] Work Phone: [facility] 10-17-2023 12:52-0400 Heart rate 89 /min Deysibelkis Robertsargenis PROPAGATION MANAGER - [employer] Work Phone: [facility] 10-17-2023 12:52-0400 SaO2% (BldA) [Mass fraction] 96 % Deysi Robertsargenis PROPAGATION MANAGER - [employer] Work Phone: [facility] 10-17-2023 12:52-0400 Systolic blood pressure 124 mm[Hg] Deysi Chikis PROPAGATION MANAGER - [employer] Work Phone: [facility] 05-05-2023 23:50-0500 Body temperature 98.24 [degF] DR HAFSA JOHNSON MD [facility] 05-05-2023 23:50-0500 Diastolic blood pressure 80 mm[Hg] DR HAFSA JOHNSON MD [facility] 05-05-2023 23:50-0500 Heart rate 94 /min DR HAFSA JOHNSON MD [facility] 05-05-2023 23:50-0500 Respiratory rate 18 /min DR HAFSA JOHNSON MD [facility] 05-05-2023 23:50-0500 Systolic blood pressure 167 mm[Hg] DR HAFSA JOHNSON MD [facility] 05-05-2023 21:02-0500 Body height 177.[address] HAFSA JOHNSON MD [facility] 05-05-2023 21:02-0500 Body temperature 98.42 [degF] DR HAFSA JOHNSON MD [facility] 05-05-2023 21:02-0500 Body weight 90.[address] HAFSA JOHNSON MD [facility] 05-05-2023 21:02-0500 Diastolic Blood Pressure Non-Invasive 102 mm[Hg] DR HAFSA JOHNSON MD [facility] 05-05-2023 21:02-0500 Heart rate 99 /min DR HAFSA JOHNSON MD [facility] 05-05-2023 21:02-0500 Respiratory rate 18 /min DR HAFSA JOHNSON MD [facility] 05-05-2023 21:02-0500 Systolic Blood Pressure Non-Invasive 164 mm[Hg] DR HAFSA JOHNSON MD [facility] 02-20-2023 14:13-0500 Body height 177.8 cm Melinda Bradshaw MD Work Phone: [facility] 02-20-2023 14:13-0500 Body mass index (BMI) [Ratio] 26.83 kg/m2 Melinda Bradshaw MD Work Phone: [facility] 02-20-2023 14:13-0500 Body weight 84.82 kg Melinda Bradshaw MD Work Phone: [facility] 02-20-2023 14:13-0500 Diastolic blood pressure 88 mm[Hg] Melinda Bradshaw MD Work Phone: [facility] 02-20-2023 14:13-0500 Heart rate 69 /min Melinda Bradshaw MD Work Phone: [facility] 02-20-2023 14:13-0500 Systolic blood pressure 163 mm[Hg] Melinda Bradshaw MD Work Phone: [facility] 12-18-2022 15:50-0400 Body height 177.8 cm Halle Dale MD Work Phone: [facility] 12-18-2022 15:50-0400 Body temperature 98.1 [degF] Halle Dale MD Work Phone: [facility] 12-18-2022 15:50-0400 Body weight 81.6 kg Halle Dale MD Work Phone: [facility] 12-18-2022 15:50-0400 Diastolic blood pressure 64 mm[Hg] Halle Dale MD Work Phone: [facility] 12-18-2022 15:50-0400 Heart rate 118 /min Halle Dale MD Work Phone: [facility] 12-18-2022 15:50-0400 Respiratory rate 18 /min Halle Dale MD Work Phone: [facility] 12-18-2022 15:50-0400 SaO2% (BldA) [Mass fraction] 98 % Halle Dale MD Work Phone: [facility] 12-18-2022 15:50-0400 Systolic blood pressure 133 mm[Hg] Halle Dale MD Work Phone: [facility] 12-13-2022 10:39-0400 Body height 177.8 cm Nakul Gallegos MD Work Phone: [facility] 12-13-2022 10:39-0400 Body temperature 96.69 [degF] Nakul Gallegos MD Work Phone: [facility] 12-13-2022 10:39-0400 Diastolic blood pressure 76 mm[Hg] Nakul Gallegos MD Work Phone: [facility] 12-13-2022 10:39-0400 Heart rate 107 /min Nakul Gallegos MD Work Phone: [facility] 12-13-2022 10:39-0400 Respiratory rate 16 /min Nakul Gallegos MD Work Phone: [facility] 12-13-2022 10:39-0400 SaO2% (BldA) [Mass fraction] 88 % Nakul Gallegos MD Work Phone: [facility] 12-13-2022 10:39-0400 Systolic blood pressure 134 mm[Hg] Nakul Gallegos MD Work Phone: [facility] 11-26-2022 10:14-0400 Body height 177.8 cm Leslie Moon PROPAGATION MANAGER.[employer] Work Phone: [facility] 11-26-2022 10:14-0400 Body temperature 97.3 [degF] Leslie Cruzim PROPAGATION MANAGER.[employer] Work Phone: [facility] 11-26-2022 10:14-0400 Body weight 84.01 kg Leslie Sarai PROPAGATION MANAGER.[employer] Work Phone: [facility] 11-26-2022 10:14-0400 Diastolic blood pressure 71 mm[Hg] Leslie Sarai PROPAGATION MANAGER.[employer] Work Phone: [facility] 11-26-2022 10:14-0400 Heart rate 106 /min Leslie Cruzim PROPAGATION MANAGER.[employer] Work Phone: [facility] 11-26-2022 10:14-0400 Respiratory rate 18 /min Leslie Sarai PROPAGATION MANAGER.[employer]ERNMAN Work Phone: [facility] 11-26-2022 10:14-0400 SaO2% (BldA) [Mass fraction] 96 % Leslie Moon PROPAGATION MANAGER.[employer]ERNMAN Work Phone: [facility] 11-26-2022 10:14-0400 Systolic blood pressure 131 mm[Hg] Leslie Moon PROPAGATION MANAGER.STERNMAN Work Phone: [facility] 11-21-2022 08:38-0400 Body height 177.8 cm Ulises Richard DO Work Phone: [facility] 11-21-2022 08:38-0400 Body temperature 98.2 [degF] Ulises Richard DO Work Phone: [facility] 11-21-2022 08:38-0400 Body weight 84.37 kg Ulises Richard DO Work Phone: [facility] 11-21-2022 08:38-0400 Diastolic blood pressure 72 mm[Hg] Ulises Richard DO Work Phone: [facility] 11-21-2022 08:38-0400 Heart rate 92 /min Ulises Richard DO Work Phone: [facility] 11-21-2022 08:38-0400 SaO2% (BldA) [Mass fraction] 95 % Ulises Richard DO Work Phone: [facility] 11-21-2022 08:38-0400 Systolic blood pressure 120 mm[Hg] Ulises Richard DO Work Phone: [facility] 11-19-2022 11:24-0400 Body height 177.8 cm Halle Dale MD Work Phone: [facility] 11-19-2022 11:24-0400 Body temperature 97.5 [degF] Halle Dale MD Work Phone: [facility] 11-19-2022 11:24-0400 Body weight 84.46 kg Halle Dale MD Work Phone: [facility] 11-19-2022 11:24-0400 Diastolic blood pressure 72 mm[Hg] Halle Dale MD Work Phone: [facility] 11-19-2022 11:24-0400 Heart rate 108 /min Halle Dale MD Work Phone: [facility] 11-19-2022 11:24-0400 Respiratory rate 18 /min Halle Dale MD Work Phone: [facility] 11-19-2022 11:24-0400 SaO2% (BldA) [Mass fraction] 96 % Halle Dale MD Work Phone: [facility] 11-19-2022 11:24-0400 Systolic blood pressure 144 mm[Hg] Halle Dale MD Work Phone: [facility] 10-17-2022 15:36-0400 Body temperature 98.1 [degF] Ulises Richard DO Work Phone: [facility] 10-17-2022 15:36-0400 Body weight 89.27 kg Ulises Richard DO Work Phone: [facility] 10-17-2022 15:36-0400 Diastolic blood pressure 90 mm[Hg] Ulises Richard DO Work Phone: [facility] 10-17-2022 15:36-0400 Heart rate 85 /min Ulises Richard DO Work Phone: [facility] 10-17-2022 15:36-0400 Respiratory rate 16 /min Ulises Richard DO Work Phone: [facility] 10-17-2022 15:36-0400 SaO2% (BldA) [Mass fraction] 98 % Ulises Richard DO Work Phone: [facility] 10-17-2022 15:36-0400 Systolic blood pressure 140 mm[Hg] Ulises Richard DO Work Phone: [facility] 10-16-2022 11:43-0400 Body height 177.8 cm Halle Dale MD Work Phone: [facility] 10-16-2022 11:43-0400 Body temperature 98.29 [degF] Halle Dale MD Work Phone: [facility] 10-16-2022 11:43-0400 Body weight 88.91 kg Halle aDle MD Work Phone: [facility] 10-16-2022 11:43-0400 Diastolic blood pressure 71 mm[Hg] Halle Dale MD Work Phone: [facility] 10-16-2022 11:43-0400 Heart rate 120 /min Halle Dale MD Work Phone: [facility] 10-16-2022 11:43-0400 Respiratory rate 16 /min Halle Dale MD Work Phone: [facility] 10-16-2022 11:43-0400 SaO2% (BldA) [Mass fraction] 99 % Halle Dale MD Work Phone: [facility] 10-16-2022 11:43-0400 Systolic blood pressure 145 mm[Hg] Halle Dale MD Work Phone: [facility] 10-10-2022 10:19-0400 Body temperature 97.9 [degF] Chair Laona Work Phone: [facility] 10-10-2022 10:19-0400 Diastolic blood pressure 64 mm[Hg] Chair Laona Work Phone: [facility] 10-10-2022 10:19-0400 Heart rate 97 /min Chair Laona Work Phone: [facility] 10-10-2022 10:19-0400 Respiratory rate 18 /min Chair Laona Work Phone: [facility] 10-10-2022 10:19-0400 Systolic blood pressure 159 mm[Hg] Chair Laona Work Phone: [facility] 10-09-2022 19:50-0400 Diastolic blood pressure 100 mm[Hg] Q3r6 Work Phone: [facility] 10-09-2022 19:50-0400 Heart rate 79 /min Q3r6 Work Phone: [facility] 10-09-2022 19:50-0400 Respiratory rate 16 /min Q3r6 Work Phone: [facility] 10-09-2022 19:50-0400 SaO2% (BldA) [Mass fraction] 97 % Q3r6 Work Phone: [facility] 10-09-2022 19:50-0400 Systolic blood pressure 179 mm[Hg] Q3r6 Work Phone: [facility] 10-09-2022 15:43-0400 Body height 177.8 cm Q3r6 Work Phone: [facility] 10-09-2022 15:43-0400 Body temperature 96.8 [degF] Q3r6 Work Phone: [facility] 10-09-2022 15:43-0400 Body weight 90.72 kg Q3r6 Work Phone: [facility] 08-28-2022 15:45-0400 Body temperature 98.1 [degF] Chair Bath Work Phone: [facility] 08-28-2022 15:45-0400 Diastolic blood pressure 82 mm[Hg] Chair Bath Work Phone: [facility] 08-28-2022 15:45-0400 Heart rate 68 /min Chair Bath Work Phone: [facility] 08-28-2022 15:45-0400 Respiratory rate 18 /min Chair Bath Work Phone: [facility] 08-28-2022 15:45-0400 Systolic blood pressure 163 mm[Hg] Chair Bath Work Phone: [facility] 08-20-2022 10:32-0400 Body height 177.8 cm Halle Dale MD Work Phone: [facility] 08-20-2022 10:32-0400 Body temperature 98.2 [degF] Halle Dale MD Work Phone: [facility] 08-20-2022 10:32-0400 Body weight 95.25 kg Halle Dale MD Work Phone: [facility] 08-20-2022 10:32-0400 Diastolic blood pressure 71 mm[Hg] Halle Dale MD Work Phone: [facility] 08-20-2022 10:32-0400 Heart rate 87 /min Halle Dale MD Work Phone: [facility] 08-20-2022 10:32-0400 Respiratory rate 18 /min Halle Dale MD Work Phone: [facility] 08-20-2022 10:32-0400 SaO2% (BldA) [Mass fraction] 98 % Halle Dale MD Work Phone: [facility] 08-20-2022 10:32-0400 Systolic blood pressure 154 mm[Hg] Halle Dale MD Work Phone: [facility] 07-15-2022 10:06-0400 Body height 177.8 cm Sean Mays MD Work Phone: [facility] 07-15-2022 10:06-0400 Body weight 90.72 kg Sean Mays MD Work Phone: [facility] 07-15-2022 10:06-0400 Diastolic blood pressure 74 mm[Hg] Sean Mays MD Work Phone: [facility] 07-15-2022 10:06-0400 Heart rate 118 /min Sean Mays MD Work Phone: [facility] 07-15-2022 10:06-0400 Respiratory rate 18 /min Sean Mays MD Work Phone: [facility] 07-15-2022 10:06-0400 SaO2% (BldA) [Mass fraction] 97 % Sean Mays MD Work Phone: [facility] 07-15-2022 10:06-0400 Systolic blood pressure 148 mm[Hg] Sean Mays MD Work Phone: [facility] 07-11-2022 09:56-0400 Body height 177.8 cm Ulises Ramos DO Work Phone: [facility] 07-11-2022 09:56-0400 Body temperature 97.81 [degF] Ulises Richard DO Work Phone: [facility] 07-11-2022 09:56-0400 Body weight 92.94 kg Ulises Richard DO Work Phone: [facility] 07-11-2022 09:56-0400 Diastolic blood pressure 93 mm[Hg] Ulises Richard DO Work Phone: [facility] 07-11-2022 09:56-0400 Heart rate 89 /min Ulises Henryley DO Work Phone: [facility] 07-11-2022 09:56-0400 SaO2% (BldA) [Mass fraction] 97 % Ulises Henryley DO Work Phone: [facility] 07-11-2022 09:56-0400 Systolic blood pressure 163 mm[Hg] Ulises Henryley DO Work Phone: [facility] 07-02-2022 09:51-0400 Body temperature 97.5 [degF] Ulises Henryley DO Work Phone: [facility] 07-02-2022 09:51-0400 Body weight 92.31 kg Ulises Henryley DO Work Phone: [facility] 07-02-2022 09:51-0400 Diastolic blood pressure 90 mm[Hg] Ulises Henryley DO Work Phone: [facility] 07-02-2022 09:51-0400 Heart rate 105 /min Ulises Henryley DO Work Phone: [facility] 07-02-2022 09:51-0400 SaO2% (BldA) [Mass fraction] 93 % Ulises Henryley DO Work Phone: [facility] 07-02-2022 09:51-0400 Systolic blood pressure 144 mm[Hg] Ulises Ramos Work Phone: [facility] 06-21-2022 10:02-0500 Body temperature 97.9 [degF] Halle Dale MD Work Phone: [facility] 06-21-2022 10:02-0500 Body weight 94.35 kg Halle Dale MD Work Phone: [facility] 06-21-2022 10:02-0500 Diastolic blood pressure 82 mm[Hg] Halle Dale MD Work Phone: [facility] 06-21-2022 10:02-0500 Heart rate 87 /min Halle Dale MD Work Phone: [facility] 06-21-2022 10:02-0500 SaO2% (BldA) [Mass fraction] 96 % Halle Dale MD Work Phone: [facility] 06-21-2022 10:02-0500 Systolic blood pressure 174 mm[Hg] Halle Dale MD Work Phone: [facility] 06-11-2022 16:14-0500 Body height 177.8 cm Buffy Min MD Work Phone: [facility] 06-11-2022 16:14-0500 Body weight 90.72 kg Buffy Min MD Work Phone: [facility] 06-11-2022 16:14-0500 Diastolic blood pressure 97 mm[Hg] Buffy Min MD Work Phone: [facility] 06-11-2022 16:14-0500 Heart rate 92 /min Buffy Min MD Work Phone: [facility] 06-11-2022 16:14-0500 SaO2% (BldA) [Mass fraction] 95 % Buffy Min MD Work Phone: [facility] 06-11-2022 16:14-0500 Systolic blood pressure 187 mm[Hg] Buffy Min MD Work Phone: [facility] 06-05-2022 14:37-0500 Body height 177.8 cm Ulises Ramos DO Work Phone: [facility] 06-05-2022 14:37-0500 Body temperature 97.7 [degF] Ulises Ramos DO Work Phone: [facility] 06-05-2022 14:37-0500 Body weight 94.08 kg Ulises Ramos DO Work Phone: [facility] 06-05-2022 14:37-0500 Diastolic blood pressure 80 mm[Hg] Ulises Ramos DO Work Phone: [facility] 06-05-2022 14:37-0500 Heart rate 77 /min Ulises Ramos DO Work Phone: [facility] 06-05-2022 14:37-0500 SaO2% (BldA) [Mass fraction] 94 % Ulises Ramos DO Work Phone: [facility] 06-05-2022 14:37-0500 Systolic blood pressure 148 mm[Hg] Ulises Ramos DO Work Phone: [facility] 04-17-2022 11:19-0500 Diastolic blood pressure 78 mm[Hg] Annmarie Ronquillo PA-C Work Phone: [facility] 04-17-2022 11:19-0500 Systolic blood pressure 158 mm[Hg] Annmarie Ronquillo PA-C Work Phone: [facility] 04-17-2022 11:00-0500 Body weight 91.22 kg Annmarie Ronquillo PA-C Work Phone: [facility] 04-17-2022 11:00-0500 Heart rate 78 /min Annmarie Ronquillo PA-C Work Phone: [facility] 04-17-2022 11:00-0500 SaO2% (BldA) [Mass fraction] 97 % Annmarie Ronquillo PA-C Work Phone: [facility] 03-22-2022 09:42-0500 Body height 177.8 cm Halle Dale MD Work Phone: [facility] 03-22-2022 09:42-0500 Body temperature 96.91 [degF] Halle Dale MD Work Phone: [facility] 03-22-2022 09:42-0500 Body weight 91.63 kg Halle Dale MD Work Phone: [facility] 03-22-2022 09:42-0500 Diastolic blood pressure 100 mm[Hg] Halle Dale MD Work Phone: [facility] 03-22-2022 09:42-0500 Heart rate 88 /min Halle Dale MD Work Phone: [facility] 03-22-2022 09:42-0500 Respiratory rate 22 /min Halle Dale MD Work Phone: [facility] 03-22-2022 09:42-0500 SaO2% (BldA) [Mass fraction] 97 % Halle Dale MD Work Phone: [facility] 03-22-2022 09:42-0500 Systolic blood pressure 149 mm[Hg] Halle Dale MD Work Phone: [facility] 03-21-2022 15:07-0500 Diastolic blood pressure 63 mm[Hg] [facility] 03-21-2022 15:07-0500 Heart rate 78 /min [facility] 03-21-2022 15:07-0500 Systolic blood pressure 140 mm[Hg] [facility] 03-21-2022 15:06-0500 Respiratory rate 18 /min [facility] 03-18-2022 15:15-0500 Body temperature 97.3 [degF] [facility] 03-18-2022 15:15-0500 Diastolic blood pressure 80 mm[Hg] [facility] 03-18-2022 15:15-0500 Heart rate 78 /min [facility] 03-18-2022 15:15-0500 Respiratory rate 18 /min [facility] 03-18-2022 15:15-0500 Systolic blood pressure 142 mm[Hg] [facility] 03-13-2022 14:18-0500 Body weight 90.72 kg [facility] 03-13-2022 14:18-0500 Diastolic blood pressure 80 mm[Hg] [facility] 03-13-2022 14:18-0500 Heart rate 72 /min [facility] 03-13-2022 14:18-0500 Respiratory rate 18 /min [facility] 03-13-2022 14:18-0500 SaO2% (BldA) [Mass fraction] 96 % [facility] 03-13-2022 14:18-0500 Systolic blood pressure 163 mm[Hg] [facility] 03-04-2022 14:55-0500 Diastolic blood pressure 58 mm[Hg] [facility] 03-04-2022 14:55-0500 Heart rate 76 /min [facility] 03-04-2022 14:55-0500 Respiratory rate 18 /min [facility] 03-04-2022 14:55-0500 Systolic blood pressure 163 mm[Hg] [facility] 03-04-2022 13:51-0500 Body temperature 97.9 [degF] [facility] 02-26-2022 15:20-0500 Diastolic blood pressure 85 mm[Hg] [facility] 02-26-2022 15:20-0500 Heart rate 76 /min [facility] 02-26-2022 15:20-0500 Respiratory rate 18 /min [facility] 02-26-2022 15:20-0500 Systolic blood pressure 173 mm[Hg] [facility] 02-26-2022 14:11-0500 Body weight 88.95 kg [facility] 01-17-2022 14:58-0400 Body height 177.8 cm Loy Mcallister MD Work Phone: [facility] 01-17-2022 14:58-0400 Heart rate 97 /min Loy Mcallister MD Work Phone: [facility] 01-17-2022 14:58-0400 SaO2% (BldA) [Mass fraction] 98 % Loy Mcallister MD Work Phone: [facility] 12-03-2021 14:05-0400 Body temperature 97.5 [degF] Ulises Richard DO Work Phone: [facility] 12-03-2021 14:05-0400 Body weight 91.67 kg Ulises Richard DO Work Phone: [facility] 12-03-2021 14:05-0400 Diastolic blood pressure 78 mm[Hg] Ulises Richard DO Work Phone: [facility] 12-03-2021 14:05-0400 Heart rate 86 /min Ulises Richard DO Work Phone: [facility] 12-03-2021 14:05-0400 SaO2% (BldA) [Mass fraction] 97 % Ulises Richard DO Work Phone: [facility] 12-03-2021 14:05-0400 Systolic blood pressure 136 mm[Hg] Ulises Richard DO Work Phone: [facility] 10-22-2021 14:17-0400 Body temperature 98.6 [degF] Ulises Richard DO Work Phone: [facility] 10-22-2021 14:17-0400 Body weight 92.49 kg Ulises Richard DO Work Phone: [facility] 10-22-2021 14:17-0400 Diastolic blood pressure 62 mm[Hg] Ulises Richard DO Work Phone: [facility] 10-22-2021 14:17-0400 Systolic blood pressure 118 mm[Hg] Ulises Richard DO Work Phone: [facility] 10-02-2021 13:12-0400 Body height 177.8 cm Melissa Raymond PROPAGATION MANAGER.STERNMAN Work Phone: [facility] 10-02-2021 13:12-0400 Body weight 91.49 kg Melissa Raymond PROPAGATION MANAGER.STERNMAN Work Phone: [facility] 10-02-2021 13:12-0400 Diastolic blood pressure 72 mm[Hg] Melissa Raymond PROPAGATION MANAGER.STERNMAN Work Phone: [facility] 10-02-2021 13:12-0400 Heart rate 83 /min Melissa Raymond PROPAGATION MANAGER.STERNMAN Work Phone: [facility] 10-02-2021 13:12-0400 Respiratory rate 18 /min Melissa Raymond PROPAGATION MANAGER.STERNMAN Work Phone: [facility] 10-02-2021 13:12-0400 SaO2% (BldA) [Mass fraction] 97 % Melissa Raymond PROPAGATION MANAGER.STERNMAN Work Phone: [facility] 10-02-2021 13:12-0400 Systolic blood pressure 116 mm[Hg] Melissa Raymond PROPAGATION MANAGER.STERNMAN Work Phone: [facility] 09-19-2021 10:59-0400 Body temperature 98.6 [degF] Halle Dale MD Work Phone: [facility] 09-19-2021 10:59-0400 Body weight 93.44 kg Halle Dale MD Work Phone: [facility] 09-19-2021 10:59-0400 Diastolic blood pressure 78 mm[Hg] Halle Dale MD Work Phone: [facility] 09-19-2021 10:59-0400 Heart rate 79 /min Halle Dale MD Work Phone: [facility] 09-19-2021 10:59-0400 SaO2% (BldA) [Mass fraction] 96 % Halle Dale MD Work Phone: [facility] 09-19-2021 10:59-0400 Systolic blood pressure 128 mm[Hg] Halle Dale MD Work Phone: [facility] 09-12-2021 10:47-0400 Body temperature 97.5 [degF] Ulises Ramos DO Work Phone: [facility] 09-12-2021 10:47-0400 Body weight 94.8 kg Ulises Ramos DO Work Phone: [facility] 09-12-2021 10:47-0400 Diastolic blood pressure 72 mm[Hg] Ulises Henryley DO Work Phone: [facility] 09-12-2021 10:47-0400 Heart rate 87 /min Ulises Henryley DO Work Phone: [facility] 09-12-2021 10:47-0400 SaO2% (BldA) [Mass fraction] 98 % Ulises Ramos DO Work Phone: [facility] 09-12-2021 10:47-0400 Systolic blood pressure 118 mm[Hg] Ulises Ramos DO Work Phone: [facility] 07-18-2021 13:51-0400 Diastolic blood pressure 90 mm[Hg] Loy Mcallister MD Work Phone: [facility] 07-18-2021 13:51-0400 Heart rate 90 /min Loy Mcallister MD Work Phone: [facility] 07-18-2021 13:51-0400 SaO2% (BldA) [Mass fraction] 95 % Loy Mcallister MD Work Phone: [facility] 07-18-2021 13:51-0400 Systolic blood pressure 140 mm[Hg] Loy Mcallister MD Work Phone: [facility] Encounters Encounter Date Encounter Type Care Provider Facility Start: 10-18-2024 ambulatory Leighton Chi Ernesto Facility:[facility] Start: 10-13-2024 ambulatory Leighton Chi Ernesto Facility:[facility] Start: 10-12-2024 ambulatory Leighton Chi Ernesto Facility:[facility] Start: 10-06-2024 End: 10-07-2024 ambulatory Leighton Chi Ernesto Facility:[facility] Start: 09-24-2024 ambulatory Leighton Chi Ernesto [facility] Start: 09-17-2024 End: 09-17-2024 ambulatory Leighton Chi Ernesto [facility] Start: 08-27-2024 End: 08-27-2024 ambulatory Leighton Chi Ernesto [facility] Start: 08-05-2024 End: 08-05-2024 ambulatory Leighton Chi Ernesto [facility] Start: 07-29-2024 End: 07-29-2024 ambulatory Leighton Chi Ernesto [facility] Start: 07-26-2024 End: 07-26-2024 ambulatory Leighton Chi Ernesto Facility:[facility] Start: 07-20-2024 End: 07-20-2024 ambulatory Leighton Chi Ernesto Facility:[facility] Start: 07-13-2024 ambulatory Leighton Chi Ernesto Facility:[facility] Start: 06-16-2024 End: 06-16-2024 ambulatory Leighton Chi Ernesto Facility:[facility] Start: 06-14-2024 End: 06-14-2024 ambulatory Leighton Chi Ernesto [facility] Start: 06-03-2024 ambulatory Leighton Chi Ernesto [facility] Start: 06-03-2024 End: 06-03-2024 ambulatory Leighton Chi Ernesto Facility:[facility] Start: 06-02-2024 End: 06-02-2024 ambulatory Leighton Chi Ernesto Facility:[facility] Start: 05-26-2024 ambulatory Leighton Chi Ernesto [facility] Start: 05-26-2024 End: 07-15-2024 Evaluation and management of inpatient Leighton Chi Ernesto Facility:[facility] Start: 05-23-2024 End: 05-26-2024 Evaluation and management of inpatient REJI STEEN MD [facility] Start: 05-20-2024 End: 05-20-2024 ambulatory Leighton Chi Ernesto Facility:[facility] Start: 05-20-2024 End: 05-20-2024 ambulatory Vincent Jabour Facility:[facility] Start: 05-19-2024 End: 05-19-2024 ambulatory Vincent bour Facility:[facility] Start: 05-13-2024 End: 05-13-2024 ambulatory Leighton Chi Ernesto [facility] Start: 05-11-2024 End: 05-11-2024 ambulatory Zaira Denis Facility:[facility] Start: 05-07-2024 End: 05-07-2024 ambulatory Leighton Chi Ernesto [facility] Start: 05-06-2024 End: 05-06-2024 ambulatory Jocelyne Rodriguez [facility] Start: 05-05-2024 End: 05-05-2024 ambulatory Idris Guzman [facility] Start: 05-02-2024 End: 05-03-2024 Evaluation and management of inpatient THERESA MARIA D SIERRA [facility] Start: 05-01-2024 End: 05-02-2024 Emergency department patient visit DIMITRY JIMENES MD [facility] Start: 04-27-2024 End: 04-27-2024 ambulatory Leighton Chi Ernesto Facility:[facility] Start: 04-19-2024 ambulatory Leighton Chi Ernesto Facility:[facility] Start: 04-16-2024 End: 04-16-2024 ambulatory Leighton Chi Ernesto [facility] Start: 04-16-2024 End: 04-16-2024 ambulatory Leighton Chi Ernesto Facility:[facility] Start: 03-26-2024 End: 03-26-2024 ambulatory Leighton Chi Ernesto Facility:[facility] Start: 03-19-2024 ambulatory Leighton Chi Ernesto [facility] Start: 03-17-2024 ambulatory Leighton Chi Ernesto Facility:[facility] Start: 03-17-2024 ambulatory Leighton Chi Ernesto [facility] Start: 03-17-2024 End: 03-20-2024 Evaluation and management of inpatient Leighton Chi Ernesto Facility:[facility] Start: 03-17-2024 End: 03-17-2024 ambulatory Leighton Chi Ernesto [facility] Start: 02-27-2024 End: 02-27-2024 ambulatory Leighton Chi Ernesto Facility:[facility] Start: 02-25-2024 Encounter for other preprocedural examination Quentin Boyer [facility] Start: 02-25-2024 ambulatory Leighton Chi Ernesto [facility] Start: 02-12-2024 End: 02-12-2024 ambulatory Leighton Chi Ernesto [facility] Start: 02-10-2024 End: 02-10-2024 ambulatory Leighton Chi Ernesto Facility:[facility] Start: 02-09-2024 End: 02-09-2024 ambulatory Leighton Chi Ernesto Facility:[facility] Start: 02-06-2024 End: 02-22-2024 Evaluation and management of inpatient Leighton Chi Ernesto Facility:[facility] Start: 02-03-2024 ambulatory Leighton Chi Ernesto [facility] Start: 02-03-2024 End: 02-06-2024 Evaluation and management of inpatient Leighton Chi Ernesto Facility:[facility] Start: 02-03-2024 ambulatory Leighton Chi Ernesto [facility] Start: 01-28-2024 ambulatory Leighton Chi Ernesto Facility:[facility] Start: 01-22-2024 End: 01-22-2024 ambulatory Leighton Chi Ernesto Facility:[facility] Start: 01-17-2024 End: 01-17-2024 ambulatory Leighton Chi Ernesto Facility:[facility] Start: 01-16-2024 End: 01-16-2024 Emergency department patient visit Leighton Chi Ernesot Facility:[facility] Start: 01-12-2024 End: 01-12-2024 Emergency department patient visit Leighton Chi Ernesto Facility:[facility] Start: 01-12-2024 End: 01-12-2024 ambulatory Leighton Chi Ernesto Facility:[facility] Start: 01-12-2024 End: 01-12-2024 ambulatory Leighton Chi Ernesto Facility:[facility] Start: 01-01-2024 End: 01-01-2024 ambulatory Leighton Chi Ernesto [facility] Start: 01-01-2024 End: 01-01-2024 ambulatory Heaven Shelley CERTIFIED SOLID WASTE FACILITY OPERATOR Work Phone: [facility] Comment on above: Impaired functional mobility, balance, gait, and endurance (Primary Dx); Acute midline low back pain without sciatica; Physical deconditioning; Muscular deconditioning Start: 12-24-2023 End: 12-25-2023 ambulatory Андрей Mon PT Work Phone: [facility] Comment on above: Impaired functional mobility, balance, gait, and endurance (Primary Dx) Start: 12-17-2023 End: 12-17-2023 ambulatory Leighton Chi Ernesto Facility[facility] Start: 12-10-2023 End: 12-10-2023 ambulatory Leighton Chi Ernesto Facility:[facility] Start: 12-04-2023 End: 12-05-2023 ambulatory Wilton Palma RN [employer] Comment on above: Community Monitoring Outreach Start: 11-22-2023 Refill Jocelyne Jamel DARDENSTERNMAN Work Phone: [facility] Comment on above: Refill Request Start: 11-21-2023 End: 11-21-2023 ambulatory Leighton Chi Ernesto [facility] Start: 11-20-2023 End: 11-20-2023 ambulatory Андрей Mon PT Work Phone: [facility] Comment on above: Impaired functional mobility, balance, gait, and endurance (Primary Dx) Start: 11-12-2023 End: 11-12-2023 ambulatory Hortencia Gallardo MD Work Phone: Gastroenterology Comment on above: Iron deficiency anem ia due to chronic blood loss (Primary Dx) Start: 11-12-2023 End: 11-12-2023 Telemedicine consultation with patient Hortencia Gallardo MD Work Phone: Gastroenterology Start: 11-07-2023 End: 11-07-2023 ambulatory Monisha Edmonds [facility] Start: 11-07-2023 End: 11-07-2023 ambulatory Leighton Chi Ernesto Facility:[facility] Start: 11-05-2023 End: 11-05-2023 ambulatory Monisha Edmonds Facility:[facility] Start: 11-03-2023 ambulatory Monisha Edmonds [facility] Start: 11-03-2023 End: 11-15-2023 Evaluation and management of inpatient Leighton Chi Ernesto Facility:[facility] Start: 11-03-2023 End: 11-03-2023 ambulatory Eric Oumar [facility] Start: 10-30-2023 End: 11-03-2023 Evaluation and management of inpatient Eric Oumar Facility:[facility] Start: 10-30-2023 ambulatory Manohar Au [facility] Start: 10-29-2023 ambulatory Tripp Rodriguez [facility] Start: 10-24-2023 ambulatory Wilton Beltre Staff ord sheet fed [employer] Comment on above: Community Monitoring Outreach Start: 10-23-2023 End: 10-23-[address] 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[employer] Comment on above: Community Monitoring Outreach Start: 09-08-2023 Refill Jocelyne Mccullough APRN.STERNMAN Work Phone: [facility] Comment on above: Refill Request Start: 08-15-2023 End: 08-15-2023 Emergency department patient visit ULISES Estrellita [facility] Start: 08-11-2023 ambulatory Wilton Beltre Staff ord sheet fed printerInter[employer] Comment on above: Community Monitoring Outreach Start: 07-25-2023 Telephone encounter Barrett jackson MD Work Phone: [facility] Cardiology [place] Start: 07-17-2023 Refill Ulises ortega DO Work Phone: [facility] Comment on above: Refill Request Start: 07-17-2023 End: 07-17-2023 ambulatory Андрей Mon PT Work Phone: [facility] Comment on above: Acute midline low ba ck pain without sciatica (Primary Dx) Start: 07-15-2023 End: 07-15-2023 ambulatory Kaleigh Mueller CERTIFIED [employer] W[employer]E FACILITY OPERATOR Work Phone: [facility] Comment on above: Physical decondition ing (Primary Dx) Start: 07-11-2023 End: 07-11-2023 ambulatory PANTERA STEINER [facility] Start: 07-03-2023 End: 07-03-2023 ambulatory Pantera Steiner PT Work Phone: [facility] Comment on above: Physical decondition ing (Primary Dx); Acute midline low back pain without sciatica; Impaired functional mobility, balance, gait, and endurance Start: 07-01-2023 End: 07-01-2023 ambulatory Kaleigh Mueller CERTIFIED SOL[employer] W[employer]E FACILITY OPERATOR Work Phone: [facility] Comment on above: Physical decondition ing (Primary Dx) Start: 06-26-2023 End: 06-26-2023 ambulatory Eileen Medrano CERTIFIED SOLID WASTE FACILITY OPERATOR Work Phone: [facility] Comment on above: Physical decondition ing (Primary Dx) Start: 06-20-2023 End: 06-20-2023 ambulatory Pantera Steiner PT Work Phone: [facility] Comment on above: Physical decondition ing (Primary Dx); Acute midline low back pain without sciatica Start: 06-09-2023 End: 06-09-2023 ambulatory ULISES RAMOS [facility] Start: 06-05-2023 End: 06-05-2023 ambulatory Eileen Medrano CERTIFIED SOL[employer] WASTE FACILITY OPERATOR Work Phone: [facility] Comment on above: Physical decondition ing (Primary Dx) Start: 06-02-2023 End: 06-02-2023 ambulatory Eileen Medrano CERTIFIED SOL[employer] WASTE FACILITY OPERATOR Work Phone: [facility] Comment on above: Physical decondition ing (Primary Dx) Start: 05-30-2023 End: 05-30-2023 ambulatory Heaven Shelley CERTIFIED SOL[employer] WASTE FACILITY OPERATOR Work Phone: [facility] Comment on above: Physical decondition ing (Primary Dx); Acute midline low back pain without sciatica; Impaired functional mobility, balance, gait, and endurance Start: 05-28-2023 End: 05-28-2023 ambulatory Kaleigh Mueller CERTIFIED SOLID WASTE FACILITY OPERATOR Work Phone: [facility] Comment on above: Physical decondition ing (Primary Dx) Start: 05-27-2023 ambulatory Wilton Beltre Staff ord sheet fed printerInter[employer] Comment on above: Community Monitoring Outreach Start: 05-16-2023 End: 05-16-2023 ambulatory Pantera Steiner PT Work Phone: [facility] Comment on above: Acute midline low ba ck pain without sciatica (Primary Dx); Physical deconditioning Start: 05-05-2023 End: 05-06-2023 Emergency department patient visit DR HAFSA JOHNSON MD Facility:[facility] Start: 05-05-2023 End: 05-05-2023 Emergency department patient visit DR HAFSA JOHNSON MD [facility] Start: 03-12-2023 ambulatory Wilton Beltre Staff ord sheet fed printerInter[employer] Comment on above: Community Monitoring Outreach Start: 02-20-2023 End: 02-20-2023 ambulatory [facility] Start: 02-20-2023 End: 02-20-2023 Office outpatient new 45 minutes Melinda Bradshaw MD Work Phone: [facility] Comment on above: Atrial fibrillation, unspecified type (CMS/HCC) (Primary Dx) Start: 01-21-2023 Telephone encounter Nakul Khalil MD Work Phone: [facility] Comment on above: Appointment (Fyi- ca lled patient to schedule his follow up appt. Pt declined and states he is no longer following up with [facility] providers-jj) Start: 01-17-2023 Telephone encounter Ulises Ramos DO Work Phone: [facility] [place] Comment on above: Release Of Medical R ecords ([facility]) Start: 01-15-2023 ambulatory Wilton dick sheet fed printerInter[employer]ative [employer] Management Comment on above: Community Monitoring Outreach Start: 01-10-2023 Telephone encounter Halle Haro Work Phone: [facility] Start: 01-03-2023 Telephone encounter Halle Haro Work Phone: [facility] Start: 01-01-2023 ambulatory Maddie White RN [facility] Start: 01-01-2023 Follow-up encounter Maddie White RN [employer] Comment on above: Transition Of Care ( TCM follow-up) Start: 12-30-2022 Telephone encounter Jenifer bell LPN Work Phone: [facility] Comment on above: Home Care Start: 12-27-2022 Telephone encounter Iona lockhart Work Phone: [facility] Comment on above: Home Care (Confirmat ion Call ) Start: 12-24-2022 Telephone encounter Marley galan RD Work Phone: Hematology/Oncology Comment on above: Nutrition Counseling (Weight Loss) Start: 12-20-2022 Telephone encounter Halle Haro Work Phone: [facility] Comment on above: Home Care Start: 12-19-2022 End: 12-26-2022 Evaluation and management of inpatient SERENE CAST DO~[id number] [facility] Start: 12-19-2022 Telephone encounter Loy Mcallister MD Work Phone: Urology Comment on above: Results Returning Patient's Call Orders Start: 12-19-2022 End: 12-19-2022 Emergency department patient visit ULISES RAMOS DO Facility:[facility] Start: 12-18-2022 End: 12-18-2022 ambulatory Halle Dale MD Work Phone: [facility] Hematology/Oncology Comment on above: CLL (chronic lymphoc ytic leukemia) (HCC) (Primary Dx); Essential thrombocythemia (HCC) Start: 12-18-2022 End: 12-18-2022 Patient encounter procedure Halle Dale MD Work Phone: [facility] Start: 12-13-2022 End: 12-13-2022 Office outpatient new 60 minutes Nakul Gallegos MD Work Phone: Pulmonary Medicine Comment on above: CIRA on CPAP (Primary Dx); Primary insomnia; Severe muscle deconditioning Start: 12-13-2022 End: 12-13-2022 ambulatory NAKUL GALLEGOS Facility:[facility] Start: 12-12-2022 Telephone encounter Ulises Ramos DO Work Phone: [facility] [place] Start: 12-09-2022 End: 12-09-2022 [facility] Yoselin Dobbs PhD Work Phone: [facility]ematology [facility] On[facility] Comment on above: 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) Start: 12-03-2022 Telephone encounter Ulises Ramos DO Work Phone: [facility] Comment on above: Patient Update Start: 11-29-2022 Telephone encounter Halle Haro Work Phone: [facility] Comment on above: Symptoms Start: 11-28-2022 ambulatory Ulises ortega DO Work Phone: [facility] Comment on above: Patient Question; Pa tient Update; Shortness of Breath Start: 11-27-2022 ambulatory Macie Payne Compa PROPAGATION MANAGER.STERNMAN Work Phone: [facility] Comment on above: Iron deficiency anem ia due to chronic blood loss (Primary Dx); SOB (shortness of breath); Lightheadedness Start: 11-27-2022 Telemedicine consult ation with patient Macie Payne Compa PROPAGATION MANAGER.STERNMAN Work Phone: [facility] Start: 11-27-2022 Telephone encounter Halle Haro Work Phone: [facility] Comment on above: Results Start: 11-26-2022 End: 11-26-2022 ambulatory Leslie Moon PROPAGATION MANAGER.STERNMAN Work Phone: [facility] Hematology/Oncology Comment on above: CT chest Essential thrombocyt hemia (HCC) (Primary Dx); CLL (chronic lymphocytic leukemia) (HCC) Start: 11-26-2022 E-mail encounter fro m caregiver Leslie Moon LARS.STERNMAN Work Phone: [facility] Start: 11-26-2022 End: 11-26-2022 Patient encounter procedure Leslie Beltre Sarai PROPAGATION MANAGER.STERNMAN Work Phone: [facility] Start: 11-25-2022 Telephone encounter Halle Haro Work Phone: [facility] Hematology/Oncology Comment on above: Appointment (Psychol ogy (new patient exam) with Dr Yoselin Dobbs 12/09/22, CT Chest 02/24/23, Follow up OV 03/05. Pt notified) Start: 11-22-2022 Refill Halle Dale MD Work Phone: [facility] Hematology/Oncology Comment on above: Refill Request Start: 11-21-2022 Telephone encounter Ulises Ramos DO Work Phone: [facility] Comment on above: Insurance Authorizat ion (PROVIGIL) Start: 11-21-2022 End: 11-21-2022 Patient encounter procedure Uilses Ramos DO Work Phone: [facility] Comment on above: CIRA (obstructive sle ep apnea) (Primary Dx); Deep vein thrombosis (DVT) of femoral vein of left lower extremity, unspecified chronicity (HCC); Essential thrombocythemia (HCC); CLL (chronic lymphocytic leukemia) (HCC) Start: 11-19-2022 End: 11-19-2022 ambulatory Halle Dale MD Work Phone: [facility] Hematology/Oncology Comment on above: Essential thrombocyt hemia (HCC) (Primary Dx); Renal cancer, right (HCC) Start: 11-19-2022 End: 11-19-2022 Patient encounter procedure Halle Dale MD Work Phone: [facility] Start: 11-18-2022 End: 11-19-2022 ambulatory ULISES RAMOS [facility] ital Start: 11-18-2022 Telephone encounter Ulises Ramos DO Work Phone[facility] Comment on above: Orders Start: 11-16-2022 Telephone encounter Bertha Chou MD Work Phone: [facility] Hematology/Oncology Comment on above: Patient Question Start: 11-15-2022 Telephone encounter Ulises Ramos DO Work Phone: [facility] Comment on above: Patient Request Refill Request Start: 11-12-2022 Telephone encounter Ulises Ramos DO Work Phone: [facility] Comment on above: Patient Update Results, Lab Start: 11-07-2022 Telephone encounter Ulises Ramos DO Work Phone: [facility] Comment on above: Patient Update; Resu lts, Lab Start: 11-06-2022 End: 11-07-2022 ambulatory ULISES Haro [facility] ital Start: 11-01-2022 Telephone encounter Bailey Hernandez Gastroenterology Comment on above: Results (labs) Start: 10-24-2022 Orders Only Leslie Moon PROPAGATION MANAGER.STERNMAN Work Phone: [facility] Hematology/Oncology Comment on above: Essential thrombocyt hemia (HCC) (Primary Dx) Community Monitoring Outreach Start: 10-23-2022 Telephone encounter Halle Haro Work Phone: [facility] Hematology/Oncology Comment on above: Results Start: 10-22-2022 ambulatory Wilton dick sheet fed printerInterpretative Dancer Management Comment on above: Community Monitoring Outreach Start: 10-18-2022 Refill Halle Dale MD Work Phone: [facility] Hematology/Oncology Comment on above: Refill Request Start: 10-17-2022 End: 10-17-2022 Patient encounter procedure Ulises Ramos DO Work Phone: [facility] Comment on above: Deep vein thrombosis (DVT) of femoral vein of left lower extremity, unspecified chronicity (HCC) (Primary Dx) Start: 10-17-2022 End: 10-17-2022 Subsequent hospital visit by physician [place] 2 [facility]IO [facility] Comment on above: Leg edema [R60.0] Start: 10-16-2022 Refill Ulises ortega DO Work Phone: [facility] Comment on above: Refill Request Start: 10-16-2022 End: 10-16-2022 ambulatory Halle Dale MD Work Phone: [facility] Hematology/Oncology Comment on above: Essential thrombocyt hemia (HCC) (Primary Dx); Leg edema; Other insomnia; Renal cancer, right (HCC); CLL (chronic lymphocytic leukemia) (HCC) Start: 10-16-2022 End: 10-16-2022 Patient encounter procedure Halle Dale MD Work Phone: [facility] [place] [facility] Start: 10-10-2022 Telephone encounter Halle Haro Work Phone: [facility] Hematology/Oncology Comment on above: Question Patient Question Start: 10-10-2022 End: 10-10-2022 ambulatory Chair 9 [address] [place] Work Phone: Hematology/Oncology Comment on above: Stage [...] 09-25-2022 Telephone encounter Halle Haro Work Phone: [facility] Hematology/Oncology Comment on above: Results Start: 09-17-2022 Telephone encounter Halle Haro Work Phone: [facility] Hematology/Oncology Comment on above: Question Start: 09-16-2022 ambulatory [place] dick sheet fed printerInterpretative Dancer Management Comment on above: Community Monitoring Outreach Start: 08-28-2022 End: 08-28-2022 ambulatory Chair 6 [facility] Work Phone: Hematology/Oncology Comment on above: Acute blood loss ane magali (Primary Dx); Severe anemia; Stage 3 chronic kidney disease, unspecified whether stage 3a or 3b CKD (HCC); Other iron deficiency anemia Start: 08-27-2022 Orders Only Halle Dale MD Work Phone: [facility] Hematology/Oncology Comment on above: Iron deficiency anem ia due to chronic blood loss (Primary Dx) Start: 08-20-2022 End: 08-20-2022 ambulatory Halle Dale MD Work Phone: [facility] Hematology/Oncology Comment on above: Iron deficiency anem ia due to chronic blood loss (Primary Dx) Start: 08-20-2022 End: 08-20-2022 Patient encounter procedure Halle Dale MD Work Phone: [facility] [place] [facility] Start: 08-15-2022 ambulatory [place] dick sheet fed printerInterpretative Dancer Management Comment on above: Community Monitoring Outreach Start: 08-15-2022 Telephone encounter Ulises Ramos DO Work Phone: [facility] Comment on above: Results; Patient Upd ate Start: 08-13-2022 End: 08-13-2022 Subsequent hospital visit by physician Ct [place] [facility]IO [facility] Comment on above: Chronic cough [R05.3 ] Start: 08-12-2022 Telephone encounter Halle Haro Work Phone: [facility] Hematology/Oncology Comment on above: Appointment Start: 08-07-2022 End: 08-07-2022 ambulatory Hortencia Gallardo MD Work Phone: Gastroenterology Comment on above: Gastrointestinal hem orrhage associated with angiodysplasia of stomach and duodenum (Primary Dx); Gastrointestinal hemorrhage, unspecified gastrointestinal hemorrhage type; Iron deficiency anemia due to chronic blood loss Start: 08-07-2022 End: 08-07-2022 Telemedicine consultation with patient Hortencia Gallardo MD Work Phone: [facility] Start: 08-05-2022 Telephone encounter Ulises Ramos DO Work Phone: [facility] Comment on above: Patient Question Start: 08-02-2022 Orders Only Halle Dale MD Work Phone: [facility] Hematology/Oncology Comment on above: Other insomnia (Prim erendira Dx); Renal cancer, right (HCC); Essential thrombocythemia (HCC) Start: 08-01-2022 Telephone encounter Ulises Ramos DO Work Phone: [facility] Comment on above: Consult Results Start: 07-26-2022 Telephone encounter Halle Haro Work Phone: [facility] Hematology/Oncology Comment on above: Refill Request Start: 07-25-2022 Telephone encounter Sean alston MD Work Phone: [facility] Cardiology [place] Comment on above: Database Tester - O ther (NIKOLAS Phillip) Referral Request Start: 07-22-2022 Refill Jocelyne Mccullough APRN.STERNMAN Work Phone: [facility] Comment on above: Refill Request Start: 07-22-2022 Telephone encounter Ulises Ramos DO Work Phone: [facility] Comment on above: Results Start: 07-18-2022 End: 07-18-2022 ambulatory Pulm [place] [facility] Comment on above: COPD Start: 07-18-2022 End: 07-18-2022 Patient encounter procedure Pulm Fct Lab [place] [facility] Start: 07-18-2022 End: 07-18-2022 Subsequent hospital visit by physician [place] [id number] [address] [facility] Comment on above: Iron deficiency anem ia due to chronic blood loss [D50.0] Start: 07-15-2022 End: 07-15-2022 Patient encounter procedure Sean Mays MD Work Phone: [facility] Cardiology [place] Comment on above: NSTEMI (non-ST eleva kali myocardial infarction) (HCC) (Primary Dx); Post PTCA; Mixed hyperlipidemia; Essential hypertension; Chronic kidney disease, unspecified CKD stage; Gastrointestinal hemorrhage associated with intestinal diverticulosis; CLL (chronic lymphocytic leukemia) (HCC); Personal history of DVT (deep vein thrombosis) Start: 07-11-2022 Telephone encounter Ulises Ramos DO Work Phone: [facility] [place] Comment on above: Orders Medication Question (Repatha directions) Care Coordination Start: 07-11-2022 End: 07-11-2022 Patient encounter procedure Ulises Olivier Richard DO Work Phone: [facility] [place] Comment on above: Iron deficiency anem ia due to chronic blood loss (Primary Dx); Acute deep vein thrombosis (DVT) of popliteal vein of left lower extremity (HCC); Right calf pain Start: 07-04-2022 Telephone encounter Sean alston MD Work Phone: [facility] Cardiology [place] Comment on above: Results Patient Question Start: 07-04-2022 End: 07-04-2022 Subsequent hospital visit by physician [facility] 2 [facility] [employer] Comment on above: Deep vein thrombosis (DVT) of left lower extremity, unspecified chronicity, unspecified vein (HCC) [I82.402] Start: 07-02-2022 End: 07-02-2022 Patient encounter procedure Ulises Olivier Richard DO Work Phone: [facility] [place] Comment on above: Chronic obstructive pulmonary disease with acute exacerbation (HCC) (Primary Dx); Deep vein thrombosis (DVT) of left lower extremity, unspecified chronicity, unspecified vein (HCC); Localized swelling, mass and lump, left upper limb ; History of colonic polyps Start: 06-30-2022 Refill Halle Dale MD Work Phone: [facility] Hematology/Oncology Comment on above: Refill Request Start: 06-28-2022 Telephone encounter Ulises Ramos DO Work Phone: [facility] [place] Comment on above: Appointment Start: 06-26-2022 End: 06-26-2022 ambulatory Sia Hodge PT Work Phone: [place] [facility] Comment on above: Physical decondition ing (Primary Dx); Impaired functional mobility, balance, gait, and endurance Start: 06-24-2022 End: 06-24-2022 ambulatory Kaleigh Mueller CERTIFIED SOLID WASTE FACILITY OPERATOR Work Phone: [facility] [facility] Comment on above: Physical decondition ing (Primary Dx) Community Monitoring Outreach Start: 06-21-2022 End: 06-21-2022 ambulatory Halle Dale MD Work Phone: [facility] Hematology/Oncology Comment on above: Essential thrombocyt hemia (HCC) (Primary Dx) Start: 06-21-2022 End: 06-21-2022 Patient encounter procedure Halle Dale MD Work Phone: [facility] Start: 06-19-2022 End: 06-19-2022 ambulatory Sia Hodge PT Work Phone: [facility] Comment on above: Physical decondition ing (Primary Dx); Impaired functional mobility, balance, gait, and endurance; Muscular deconditioning Start: 06-14-2022 Telephone encounter Ulises Ramos DO Work Phone: [facility] [employer] Comment on above: Forms (Mon's) Start: 06-14-2022 End: 06-14-2022 ambulatory Sia Hodge PT Work Phone: [facility] Comment on above: Physical decondition ing (Primary Dx); Impaired functional mobility, balance, gait, and endurance; Muscular deconditioning Start: 06-12-2022 End: 06-12-2022 ambulatory Sia Hodge PT Work Phone: [facility] [facility] Comment on above: Physical decondition [...] with hemorrhage; NSTEMI (non-ST elevated myocardial infarction) (HCC) Start: 06-10-2022 Refill Ulises ortega DO Work Phone: [facility] [employer] Comment on above: Refill Request Start: 06-07-2022 End: 06-07-2022 ambulatory Sia Hodge PT Work Phone: [place] [facility] Comment on above: Physical decondition ing (Primary Dx); Impaired functional mobility, balance, gait, and endurance; Muscular deconditioning Start: 06-05-2022 End: 06-05-2022 Patient encounter procedure Ulises Ramos DO Work Phone: [facility] [place] Comment on above: Bronchitis (Primary Dx) Start: 06-03-2022 End: 06-03-2022 ambulatory Sia Hodge PT Work Phone: [facility] [facility] Comment on above: Physical decondition ing (Primary Dx); Impaired functional mobility, balance, gait, and endurance Start: 05-31-2022 End: 05-31-2022 ambulatory Sia Hodge PT Work Phone: [place] [facility] Comment on above: Physical decondition ing (Primary Dx) Start: 05-23-2022 ambulatory Wilton Beltre Staff ord sheet fed printerInterpretative Dancer Management Comment on above: Community Monitoring Outreach Start: 05-22-2022 Refill Halle Dale MD Work Phone: [facility] Hematology/Oncology Comment on above: Refill Request Start: 05-14-2022 Refill Lucrecia baptiste APRN.STERNMAN Work Phone: [facility] [place] Comment on above: Refill Request Start: 04-30-2022 Telephone encounter Hortencia fagan MD Work Phone: Gastroenterology Comment on above: Patient Question Start: 04-25-2022 Refill Halle Dale MD Work Phone: [facility] Hematology/Oncology Comment on above: Refill Request Start: 04-22-2022 Telephone encounter Vivian Galvin RN Work Phone: Gastroenterology Comment on above: voicemail Start: 04-18-2022 ambulatory Wilton Beltre Staff ord sheet fed printerInterpretative Dancer Management Comment on above: Community Monitoring Outreach Start: 04-17-2022 Telephone encounter Annmarie valdez PA-C Work Phone: [facility] [place] Comment on above: Orders; Results Start: 04-17-2022 End: 04-17-2022 Subsequent hospital visit by physician Xr [place] [facility] Comment on above: URI with cough and c ongestion [J06.9] Start: 04-17-2022 End: 04-17-2022 Patient encounter procedure Annmarie Sharma Shima SCHAEFER Work Phone: [facility] Comment on above: URI with cough and c ongestion (Primary Dx); Wheeze Start: 04-05-2022 Telephone encounter Hortencia fagan MD Work Phone: Gastroenterology Comment on above: PA for Octerotide-Sa ndostatin Start: 04-04-2022 Telephone encounter Halle Haro Work Phone: [facility] Hematology/Oncology Comment on above: Question Start: 04-03-2022 Refill Halle Dale MD Work Phone: [facility] Hematology/Oncology Comment on above: Refill Request Start: 04-03-2022 End: 04-03-2022 ambulatory Sia Hodge PT Work Phone: [place] [facility] Comment on above: Impaired functional mobility, balance, gait, and endurance (Primary Dx); Muscular deconditioning Start: 03-27-2022 End: 03-27-2022 ambulatory Hortencia Gallardo MD Work Phone: Gastroenterology Comment on above: Iron deficiency anem ia due to chronic blood loss (Primary Dx) Start: 03-27-2022 End: 03-27-2022 Telemedicine consultation with patient Hortencia Gallardo MD Work Phone: [facility] Start: 03-25-2022 End: 03-25-2022 ambulatory Kaleigh Mueller CERTIFIED SOLID WASTE FACILITY OPERATOR Work Phone: [place] [facility] Comment on above: Impaired functional mobility, balance, gait, and endurance (Primary Dx) Start: 03-22-2022 Refill Halle Dale MD Work Phone: [facility] Hematology/Oncology Comment on above: Refill Request Start: 03-22-2022 End: 03-22-2022 ambulatory Halle Dale MD Work Phone: [facility] Hematology/Oncology Comment on above: Essential thrombocyt hemia (HCC) Start: 03-22-2022 End: 03-22-2022 Patient encounter procedure Halle Dale MD Work Phone: [facility] Start: 03-21-2022 End: 03-21-2022 ambulatory Chair 2 [facility] Hematology/Oncology Comment on above: Iron deficiency anem ia due to chronic blood loss (Primary Dx); Other iron deficiency anemia; Gastroesophageal reflux disease, unspecified whether esophagitis present Start: 03-21-2022 Telephone encounter Loy Mcallister MD Work Phone: [place] [facility] Comment on above: Results Start: 03-18-2022 End: 03-18-2022 ambulatory Chair 4 [facility] Hematology/Oncology Comment on above: Iron deficiency anem ia due to chronic blood loss (Primary Dx); Other iron deficiency anemia; Gastroesophageal reflux disease, unspecified whether esophagitis present Start: 03-15-2022 Refill Halle Dale MD Work Phone: [facility] Hematology/Oncology Comment on above: Refill Request Start: 03-14-2022 ambulatory [place] M Staff ord sheet fed printerInterpretative [employer]cer Management Comment on above: Community Monitoring Outreach Start: 03-13-2022 End: 03-13-2022 ambulatory Chair 6 [facility] Hematology/Oncology Comment on above: Iron deficiency anem ia due to chronic blood loss (Primary Dx); Other iron deficiency anemia; Gastroesophageal reflux disease, unspecified whether esophagitis present Start: 03-04-2022 End: 03-04-2022 ambulatory Bed 1 [facility] Hematology/Oncology Comment on above: Iron deficiency anem ia due to chronic blood loss (Primary Dx); Other iron deficiency anemia; Gastroesophageal reflux disease, unspecified whether esophagitis present Start: 02-26-2022 End: 02-26-2022 ambulatory Bed 1 [facility] Hematology/Oncology Comment on above: Iron deficiency anem ia due to chronic blood loss (Primary Dx); Other iron deficiency anemia; Gastroesophageal reflux disease, unspecified whether esophagitis present Start: 02-20-2022 Telephone encounter Ulises Ramos DO Work Phone: [facility] Comment on above: Orders; Referral Inf ormation (PT) Start: 02-15-2022 Telephone encounter Loy Mcallister MD Work Phone: [facility] Comment on above: Appointment Start: 02-13-2022 Telephone encounter Halle Haro Work Phone: [facility]On[facility] Comment on above: Question Start: 02-13-2022 End: 02-13-2022 Subsequent hospital visit by physician [place] 2 RADIO ULTRA [facility] Comment on above: N18.32 Start: 02-06-2022 ambulatory Louie Garg sheet fed printerInterpretative Dancer Management Comment on above: Community Monitoring Outreach Start: 01-23-2022 Telephone encounter Ulises Ramos DO Work Phone: [facility] Comment on above: Patient Question; Me dication Problem Start: 01-20-[address] Aleja Pollock [facility] Facility:[facility] Start: 01-17-2022 End: 01-17-2022 Patient encounter procedure Loy Mcallister MD Work Phone: Urology Comment on above: Renal cancer, right (HCC) (Primary Dx); Atypical small acinar proliferation of prostate; Elevated prostate specific antigen (PSA); Hydrocele in adult Start: 01-17-2022 Telephone encounter Loy Mcallister MD Work Phone: [facility] Comment on above: Additional Labs Start: 01-16-2022 ambulatory Ulises ortega DO Work Phone: [facility] Start: 01-16-2022 Follow-up encounter Ulises Ramos DO Work Phone: [facility] Comment on above: Visit Follow Up Ques tion Start: 12-26-2021 Telephone encounter Loy Mcallister MD Work Phone: [facility] Comment on above: Results (/) Start: 12-19-2021 ambulatory Louie Garg RN Interpretative [employer] Comment on above: Community Monitoring Outreach Start: 12-18-2021 Refill Halle Dale MD Work Phone: [facility] Comment on above: Refill Request Start: 12-12-2021 End: 12-12-2021 ambulatory Wilbert Watkins MD Work Phone: Gastroenterology Comment on above: Iron deficiency anem ia due to chronic blood loss (Primary Dx) Start: 12-12-2021 End: 12-12-2021 Telemedicine consultation with patient Wilbert Watkins MD Work Phone: [facility] Start: 12-07-2021 End: 12-07-2021 ambulatory Sia Hodge PT Work Phone: [facility] Comment on above: Left hip pain (Prima ry Dx); Impaired functional mobility, balance, gait, and endurance Start: 12-04-2021 Telephone encounter Intestinal Trans Coord Main Work Phone: [facility] Comment on above: Referral - Liver Txp ; Referral Request Start: 12-03-2021 End: 12-03-2021 Patient encounter procedure Ulises Ramos DO Work Phone: [facility] [place] Comment on above: Chronic diarrhea (Pr imary Dx); Neck pain Start: 12-01-2021 End: 12-01-2021 ambulatory Sia Hodge PT Work Phone: [facility] Comment on above: Left hip pain (Prima ry Dx); Impaired functional mobility, balance, gait, and endurance Start: 11-22-2021 Refill Halle Dale MD Work Phone: [facility] Comment on above: Refill Request Start: 11-19-2021 Telephone encounter Halle Haro Work Phone: [facility] Comment on above: Question Start: 11-19-2021 End: 11-19-2021 ambulatory Kaleigh Mueller CERTIFIED SOLID WASTE FACILITY OPERATOR Work Phone: [facility] Comment on above: Left hip pain (Prima ry Dx) Start: 11-13-2021 ambulatory Louie Garg RN Ambulatory [facility] Comment on above: Community Monitoring Outreach (CKD Telephonic CDM Outreach) Start: 11-12-2021 End: 11-12-2021 ambulatory Heaven Shelley CERTIFIED SOLID WASTE FACILITY OPERATOR Work Phone: [facility] Comment on above: Impaired functional mobility, balance, gait, and endurance (Primary Dx); Left hip pain Start: 11-07-2021 Telephone encounter Jorge Roman MD Work Phone: [facility] [place] Comment on above: Patient Question Start: 2021 ambulatory Louie Garg RN Ambulatory [facility] Comment on above: Community Monitoring Outreach Community Monitoring Outreach (CKD Telephnic CDM Outreach) Start: 2021 Refill Sean Mays MD Work Phone: [facility] Cardiology [place] Comment on above: Refill Request Start: 10-25-2021 Telephone encounter Ulises Ramos DO Work Phone: [facility] [employer] Comment on above: Results Start: 10-24-2021 Telephone encounter Halle Haro Work Phone: [facility] Hematology/Oncology Comment on above: Question Start: 10-24-2021 End: 10-24-2021 ambulatory Heaven Shelley CERTIFIED SOLID WASTE FACILITY OPERATOR Work Phone: [facility] Comment on above: Impaired functional mobility, balance, gait, and endurance (Primary Dx); Left hip pain; Chronic pain of left knee Start: 10-23-2021 Telephone encounter Ulises Ramos DO Work Phone: [facility] [employer] Comment on above: Medication Question; Referral Information (sleep medicine) Start: 10-22-2021 End: 10-22-2021 Patient encounter procedure Ulises Ramos DO Work Phone: [facility] [employer] Comment on above: Diarrhea, unspecifie d type (Primary Dx); Acute deep vein thrombosis (DVT) of left lower extremity, unspecified vein (HCC); Iron deficiency anemia due to chronic blood loss Start: 10-22-2021 End: 10-22-2021 ambulatory Heaven Shellye CERTIFIED SOLID WASTE FACILITY OPERATOR Work Phone: [facility] Comment on above: Impaired functional mobility, balance, gait, and endurance (Primary Dx); Left hip pain; Chronic pain of left knee Start: 10-21-2021 Refill Halle Dale MD Work Phone: [facility] Hematology/Oncology Comment on above: Refill Request Start: 10-18-2021 Refill Sean Mays MD Work Phone: [facility] Cardiology [place] Comment on above: Refill Request Start: 10-18-2021 Telephone encounter Halle Haro Work Phone: [facility] Hematology/Oncology Comment on above: Question Start: 10-17-2021 Telephone encounter Halle Haro Work Phone: [facility] Hematology/Oncology Comment on above: Appointment (Having blood transfusion tomorrow. Can you put in orders. ) Start: 10-16-2021 Orders Only Halle Dale MD Work Phone: [facility] Hematology/Oncology Comment on above: Iron deficiency anem ia due to chronic blood loss (Primary Dx) RE: Blood test Start: 10-11-2021 Refill Halle Dale MD Work Phone: [facility] Hematology/Oncology Comment on above: Refill Request Start: 10-10-2021 ambulatory Louie Garg sheet fed printerInterpretative [employer] Comment on above: Community Monitoring Outreach (CKD Telephonic CDM Outreach) Start: 10-10-2021 Refill Sean aMys MD Work Phone: [facility] Cardiology [place] Comment on above: Refill Request Start: 10-09-2021 Telephone encounter Ulises Ramos DO Work Phone: [facility] [place] Comment on above: Patient Question Question Start: 10-09-2021 End: 10-09-2021 ambulatory Sia Hodge PT Work Phone: [place] [facility] Comment on above: Impaired functional mobility, balance, gait, and endurance (Primary Dx); Left hip pain Start: 10-04-2021 Telephone encounter Melissa hartman APRN.STERNMAN Work Phone: [facility] Comment on above: Results Start: 10-03-2021 End: 10-03-2021 ambulatory Heaven Shelley CERTIFIED SOLID WASTE FACILITY OPERATOR Work Phone: [place] [facility] Comment on above: Impaired functional mobility, balance, gait, and endurance (Primary Dx); Chronic pain of left knee; Left hip pain Start: 10-02-2021 End: 10-02-2021 Patient encounter procedure Melissa Raymond APRN.STERNMAN Work Phone: [facility] Comment on above: Post PTCA (Primary D x); Mixed hyperlipidemia Start: 09-28-2021 Telephone encounter Delaney Turk [facility] [employer] Comment on above: Compliance Adherence (Adherence Packaging ) Start: 09-26-2021 Telephone encounter Halle Haro Work Phone: [facility] Hematology/Oncology Comment on above: Patient Question (Nikolas peacock wants to know if he has an altitude limit he has to stay under? He is traveling and will be flying over 8,000 feet. ) Start: 09-26-2021 End: 09-26-2021 ambulatory Heavne Shelley CERTIFIED [employer] FACILITY OPERATOR Work Phone: [facility] Comment on above: Impaired functional mobility, balance, gait, and endurance (Primary Dx); Chronic pain of left knee; Left hip pain Start: 09-25-2021 ambulatory Wilton Melchor [facility]ly [facility] Comment on above: Community Monitoring Outreach (CKD Telephonic CDM Outreach ) Start: 09-24-2021 End: 09-24-2021 ambulatory Heaven Shelley CERTIFIED [employer] FACILITY OPERATOR Work Phone: [facility] Comment on above: Impaired functional mobility, balance, gait, and endurance (Primary Dx) Start: 09-19-2021 End: 09-19-2021 ambulatory Halle Dale MD Work Phone: [facility] Hematology/Oncology Comment on above: Iron deficiency anem ia due to chronic blood loss (Primary Dx); Other insomnia Start: 09-19-2021 End: 09-19-2021 Patient encounter procedure Halle Dale MD Work Phone: [facility] Start: 09-13-2021 Telephone encounter Loy Mcallister MD Work Phone: Urology Comment on above: psa results Start: 09-13-2021 End: 09-13-2021 ambulatory Sierra Ortiz PT Work Phone: [facility] Comment on above: Impaired functional mobility, balance, gait, and endurance (Primary Dx); Chronic pain of left knee; Left hip pain Start: 09-12-2021 End: 09-12-2021 Patient encounter procedure Ulises Ramos DO Work Phone: [facility] Comment on above: Elevated PSA (Primar y Dx); Primary insomnia Start: 09-11-2021 ambulatory Kristal De Leon RN Amb[facility] Comment on above: ACM RITU RN ( [facility]) Start: 09-05-2021 End: 09-05-2021 ambulatory Heaven Shelley CERTIFIED [employer] FACILITY OPERATOR Work Phone: [facility] Comment on above: Impaired functional mobility, balance, gait, and endurance (Primary Dx); Chronic pain of left knee; Left hip pain Start: 09-04-2021 Telephone encounter Ulises Ramos DO Work Phone: [facility] Comment on above: Nurse Triage Call Start: 08-29-2021 End: 08-29-2021 ambulatory Heaven Espinosanot CERTIFIED [employer] FACILITY OPERATOR Work Phone: [facility] Comment on above: Impaired functional mobility, balance, gait, and endurance (Primary Dx); Chronic pain of left knee; Left hip pain Community Monitoring Outreach (CKD Telephonic CDM Outreach) Start: 08-27-2021 End: 08-27-2021 ambulatory Sierra Ortiz PT Work Phone: [facility] Comment on above: Impaired functional mobility, balance, gait, and endurance (Primary Dx); Chronic pain of left knee; Left hip pain Start: 08-21-2021 Refill Jorge sharma MD Work Phone: [facility] [place] Comment on above: Refill Request Start: 08-15-2021 Orders Only Loy Mcallister MD Work Phone: Urology Comment on above: Elevated prostate sp ecific antigen (PSA) (Primary Dx) Results Start: 08-14-2021 Telephone encounter Halle Haro Work Phone: [facility] Hematology/Oncology Comment on above: Orders CLL (chronic lymphoc ytic leukemia) (HCC) (Primary Dx) Start: 08-14-2021 End: 08-14-2021 ambulatory Heaven Arbuthnot CERTIFIED [employer] FACILITY OPERATOR Work Phone: [facility] Comment on above: Impaired functional mobility, balance, gait, and endurance (Primary Dx); Chronic pain of left knee; Left hip pain Start: 08-13-2021 ambulatory Louie Garg RN [facility] Comment on above: Community Monitoring Outreach (CKD Telephonic CDM Outreach) Start: 08-09-2021 Telephone encounter Ulises Ramos DO Work Phone: [facility] [place] Comment on above: Forms (Mon's) Start: 08-09-2021 End: 08-09-2021 ambulatory Sierra Ortiz PT Work Phone: [facility] Comment on above: Impaired functional mobility, balance, gait, and endurance (Primary Dx); Chronic pain of left knee; Left hip pain Start: 08-06-2021 ambulatory Louie Garg RN [facility] Comment on above: Community Monitoring Outreach (CKD Telephonic CDM Outreach) Start: 08-01-2021 Telephone encounter Ulises Ramos DO Work Phone: [facility] [place] Comment on above: Medication Problem Start: 08-01-2021 End: 08-01-2021 ambulatory Heaven Arbuthnot CERTIFIED [employer] FACILITY OPERATOR Work Phone: [facility] Comment on above: Impaired functional mobility, balance, gait, and endurance (Primary Dx); Chronic pain of left knee; Left hip pain Start: 07-30-2021 End: 07-30-2021 ambulatory Heaven Arbuthnot CERTIFIED [employer] FACILITY OPERATOR Work Phone: [facility] Comment on above: Impaired functional mobility, balance, gait, and endurance (Primary Dx); Left hip pain; Chronic pain of left knee; Pain in left hip Start: 07-27-2021 Telephone encounter Jorge Roman MD Work Phone: [facility] [place] Comment on above: Initial Consult (Ini tial consult [id number] ENT Right ear pain Nasal sore) Start: 07-27-2021 End: 07-27-2021 ambulatory Sierra Ortiz PT Work Phone: [facility] Comment on above: Impaired functional mobility, balance, gait, and endurance (Primary Dx); Left hip pain Start: 07-26-2021 ambulatory Louie Garg RN [facility] Comment on above: Community Monitoring Outreach (CKD Telephonic CDM Outreach) Start: 07-26-2021 Refill Ulises ortega DO Work Phone: [facility] [employer] [facility] Comment on above: Refill Request Start: 07-25-2021 Telephone encounter Ulises Ramos DO Work Phone: [facility] [place] Comment on above: Forms (meg) Start: 07-25-2021 End: 07-25-2021 ambulatory Heaven Shelley CERTIFIED [employer] FACILITY OPERATOR Work Phone: [facility] Comment on above: Impaired functional mobility, balance, gait, and endurance (Primary Dx); Left hip pain; Chronic pain of left knee Start: 07-20-2021 Telephone encounter Halle Haro Work Phone: [facility] Comment on above: Question Start: 07-20-2021 End: 07-20-2021 ambulatory Eileen Tishomingo CERTIFIED [employer] FACILITY OPERATOR Work Phone: [facility] Comment on above: Impaired functional [...] Telephone encounter Ulises Ramos DO Work Phone: [facility] Comment on above: Appointment (Resched ule appt-Provider out of office) Start: 07-11-2021 ambulatory Louie Garg RN [facility] Comment on above: Community Monitoring Outreach (CKD CDM Enrollment) Start: 07-06-2021 End: 07-06-2021 ambulatory Sia Hodge PT Work Phone: [facility] Comment on above: Impaired functional mobility, balance, gait, and endurance (Primary Dx); Chronic pain of left knee; Left hip pain Start: 08-21-2017 Ambulatory [facility] Procedures Date Procedure Procedure Detail Performing Clinician Start: 02-20-2023 ECG 12-LEAD MELINDA BRADSHAW Start: 02-20-2023 Ecg routine ecg w/le ast 12 lds w/i&r Melinda Bradshaw MD Work Phone: Start: 12-19-2022 Transfusion of Nonautologous Red Blood Cells into Peripheral Vein, Percutaneous Approach SERENE MARIE DO~[id number] Start: 12-11-2022 Antibody screen HORTENCIA GALLARDO Comment on above: Order Comment: Speci men Type: BLOOD SPECIMENOrdering Facility: [facility] Address: [address] [place] [address] Performed By: #### T SCR ####CC MAIN BLOOD BANKCLIA [id number] [address] Start: 12-08-2022 Antibody screen HORTENCIA GALLARDO Comment on above: Order Comment: Speci men Type: BLOOD SPECIMENOrdering Facility: [facility] Address: [address] [place] [address] Performed By: #### T SCR ####CC MAIN BLOOD BANKCLIA [id number] [address] Start: 10-16-2022 Antibody screen Halle schilling MD Work Phone: Start: 10-09-2022 Colonoscopy flx dx w /collj spec when pfrmd Hortencia Gallardo MD Work Phone: Start: 10-09-2022 Endoscopy upper smal l intestine Hortencia Gallardo MD Work Phone: Start: 10-09-2022 Colonoscopy Mc Q3r6 Work Phone: Start: 10-08-2022 Compatibility each u nit electronic Halle Dale MD Work Phone: Start: 08-28-2022 End: 08-28-2022 RBC TRANSFUSION INSTRUCTION ([place]) Halle Dale MD Work Phone: Start: 08-27-2022 [...] Start: 04-17-2022 COVID WITH FLUA+B, ROUTINE Annmarie Ronquillo PA-C Work Phone: Start: 01-17-2022 Isai post-voiding re sidual urine&/bladder cap Loy Mcallister MD Work Phone: Start: 04-05-2021 Adult depression scr eening assessment Sia Hodge PT Work Phone: Start: 11-25-2018 History of placement of stent for coronary artery disease S/P drug eluting coronary stent placement Sianisreen Hodge PT Work Phone: Start: 08-21-2017 Colonoscopy Sianisreen Hodge PT Work Phone: Large intestinal str [...] 10-09-2032 Screening for malignant neoplasm of colon [facility] Start: 10-10-2027 Colonoscopy COLONOSCOPY [facility] Start: 10-10-2027 COLORECTAL CANCER SCREENING COLORECTAL CANCER SCREENING [facility] Start: 10-10-2027 Screening for malignant neoplasm of colon [facility] Start: 08-22-2027 Screening for malignant neoplasm of colon [facility] Start: 07-03-2027 Lipid 1996 panel - Serum or Plasma Lipid Screening [facility] Start: 07-03-2027 Lipid panel Lipid Screening [facility] Start: 07-03-2027 LIPID SCREEN LIPID SCREEN [facility] Start: 04-23-2027 LIPID SCREEN LIPID SCREEN [facility] Start: 03-18-2027 PROSTATE CANCER SCREENING DISCUSSION PROSTATE CANCER SCREENING DISCUSSION [facility] Start: 01-17-2027 LIPID SCREEN LIPID SCREEN [facility] Start: 12-13-2026 PROSTATE CANCER SCREENING DISCUSSION PROSTATE CANCER SCREENING DISCUSSION [facility] Start: 10-03-2026 LIPID SCREEN LIPID SCREEN [facility] Start: 09-27-2026 PROSTATE CANCER SCREENING DISCUSSION PROSTATE CANCER SCREENING DISCUSSION [facility] Start: 09-11-2026 PROSTATE CANCER SCREENING DISCUSSION PROSTATE CANCER SCREENING DISCUSSION [facility] Start: 08-14-2026 PROSTATE CANCER SCREENING DISCUSSION PROSTATE CANCER SCREENING DISCUSSION [facility] Start: 01-19-2026 LIPID SCREEN LIPID SCREEN [facility] Start: 01-19-2026 PROSTATE CANCER SCREENING DISCUSSION PROSTATE CANCER SCREENING DISCUSSION [facility] Start: 12-17-2025 DIABETES SCREEN DIABETES SCREEN [facility] Start: 12-17-2025 Diabetes Screening Diabetes Screening [facility] Start: 12-11-2025 DIABETES SCREEN DIABETES SCREEN [facility] Start: 12-10-2025 DIABETES SCREEN DIABETES SCREEN [facility] Start: 12-09-2025 DIABETES SCREEN DIABETES SCREEN [facility] Start: 11-26-2025 DIABETES SCREEN DIABETES SCREEN [facility] Start: 11-11-2025 DIABETES SCREEN DIABETES SCREEN [facility] Start: 10-30-2025 DIABETES SCREEN DIABETES SCREEN [facility] Start: 10-07-2025 DIABETES SCREEN DIABETES SCREEN [facility] Start: 09-23-2025 DIABETES SCREEN DIABETES SCREEN [facility] Start: 09-10-2025 DIABETES SCREEN DIABETES SCREEN [facility] Start: 08-26-2025 DIABETES SCREEN DIABETES SCREEN [facility] Start: 06-19-2025 DIABETES SCREEN DIABETES SCREEN [facility] Start: 06-19-2024 DIABETES SCREEN DIABETES SCREEN [facility] Start: 01-08-2024 Covid-19 Vaccine () Covid-19 Vaccine () [facility] Start: 01-08-2024 End: 01-08-2024 ambulatory 01/08/2024 11:00 AM EDT OT/PT/Speech Visit [facility] [address] [place] [address] [phone] Андрей Mon, PT [address] [place], [place] [phone] TIA - requested acupuncture,would like dry needling if appropriate [facility] Comment on above: TIA - requested acupuncture,would like d ry needling if appropriate Start: 01-01-2024 End: 01-01-2024 ambulatory 01/01/2024 10:15 AM EDT OT/PT/Speech Visit [facility] [address] [place] [address] [phone] Heaven Shelley, CERTIFIED [employer] FACILITY OPERATOR [address] [place], [place] [phone] TIA - requested acupuncture,would like dry needling if appropriate [facility] Comment on above: TIA - requested acupuncture,would like d ry needling if appropriate Start: 12-25-2023 End: 12-25-2023 ambulatory 12/25/2023 9:30 AM EDT OT/PT/Speech Visit [facility] [address] [place] [address] [phone] Heaven Shelley, CERTIFIED [employer] FACILITY OPERATOR [address] [place] [address] TIA - requested acupuncture,would like dry needling if appropriate [facility] Comment on above: TIA - requested acupuncture,would like d ry needling if appropriate Start: 12-18-2023 Complete blood count Hemoglobin/Hematocrit [facility] Start: 12-18-2023 Creatinine measurement Serum Creatinine [facility] Start: 12-18-2023 HEMOGLOBIN/HEMATOCRIT HEMOGLOBIN/HEMATOCRIT [facility] Start: 12-18-2023 SERUM CREATININE SERUM CREATININE [facility] Start: 12-18-2023 End: 12-18-2023 ambulatory 12/18/2023 8:45 AM EDT OT/PT/Speech Visit [facility] [address] [place] [address] Lexie Valverde, PT [address] [place] [phone] TIA - requested acupuncture,would like dry needling if appropriate [facility] Comment on above: TIA - requested acupuncture,would like d ry needling if appropriate Start: 12-14-2023 Influenza vaccination Influenza Vaccine (#1) [facility] Start: 12-12-2023 HEMOGLOBIN/HEMATOCRIT HEMOGLOBIN/HEMATOCRIT [facility] Start: 12-12-2023 SERUM CREATININE SERUM CREATININE [facility] Start: 12-11-2023 HEMOGLOBIN/HEMATOCRIT HEMOGLOBIN/HEMATOCRIT [facility] Start: 12-11-2023 SERUM CREATININE SERUM CREATININE [facility] Start: 12-10-2023 HEMOGLOBIN/HEMATOCRIT HEMOGLOBIN/HEMATOCRIT [facility] Start: 12-10-2023 SERUM CREATININE SERUM CREATININE [facility] Start: 11-27-2023 HEMOGLOBIN/HEMATOCRIT HEMOGLOBIN/HEMATOCRIT [facility] Start: 11-27-2023 SERUM CREATININE SERUM CREATININE [facility] Start: 11-22-2023 ANNUAL PCP TEAM CHRONIC DISEASE VISIT ANNUAL PCP TEAM CHRONIC DISEASE VISIT [facility] Start: 11-22-2023 BP CONTROLLED (<130/80) BP CONTROLLED (<130/80) [facility] Start: 11-19-2023 SERUM CREATININE SERUM CREATININE [facility] Start: 11-12-2023 HEMOGLOBIN/HEMATOCRIT HEMOGLOBIN/HEMATOCRIT [facility] Start: 11-12-2023 SERUM CREATININE SERUM CREATININE [facility] Start: 11-12-2023 End: 11-12-2023 ambulatory 11/12/2023 11:00 AM EDT [facility] [address] [address] [address] [facility] [address] [place] [id number] F/U- Bleeding Gastroenterology Comment on above: F/U- Bleeding Start: 10-31-2023 HEMOGLOBIN/HEMATOCRIT HEMOGLOBIN/HEMATOCRIT [facility] Start: 10-31-2023 SERUM CREATININE SERUM CREATININE [facility] Start: 10-18-2023 ANNUAL PCP TEAM CHRONIC DISEASE VISIT ANNUAL PCP TEAM CHRONIC DISEASE VISIT [facility] Start: 10-17-2023 HEMOGLOBIN/HEMATOCRIT HEMOGLOBIN/HEMATOCRIT [facility] Start: 10-08-2023 HEMOGLOBIN/HEMATOCRIT HEMOGLOBIN/HEMATOCRIT [facility] Start: 10-08-2023 SERUM CREATININE SERUM CREATININE [facility] Start: 09-24-2023 End: 09-24-2023 ambulatory 09/24/2023 4:00 PM EDT [facility] [address] [address] [facility] [address] [address] F/U Gastroenterology Comment on above: F/U Start: 09-24-2023 HEMOGLOBIN/HEMATOCRIT HEMOGLOBIN/HEMATOCRIT [facility] Start: 09-24-2023 SERUM CREATININE SERUM CREATININE [facility] Start: 09-11-2023 HEMOGLOBIN/HEMATOCRIT HEMOGLOBIN/HEMATOCRIT [facility] Start: 09-11-2023 SERUM CREATININE SERUM CREATININE [facility] Start: 08-27-2023 HEMOGLOBIN/HEMATOCRIT HEMOGLOBIN/HEMATOCRIT [facility] Start: 08-27-2023 SERUM CREATININE SERUM CREATININE [facility] Start: 08-15-2023 HEMOGLOBIN/HEMATOCRIT HEMOGLOBIN/HEMATOCRIT [facility] Start: 08-07-2023 HEMOGLOBIN/HEMATOCRIT HEMOGLOBIN/HEMATOCRIT [facility] Start: 08-07-2023 SERUM CREATININE SERUM CREATININE [facility] Start: 07-31-2023 ANNUAL PCP TEAM CHRONIC DISEASE VISIT ANNUAL PCP TEAM CHRONIC DISEASE VISIT [facility] Start: 07-31-2023 HEMOGLOBIN/HEMATOCRIT HEMOGLOBIN/HEMATOCRIT [facility] Start: 07-31-2023 SERUM CREATININE SERUM CREATININE [facility] Start: 07-19-2023 HEMOGLOBIN/HEMATOCRIT HEMOGLOBIN/HEMATOCRIT [facility] Start: 07-12-2023 ANNUAL PCP TEAM CHRONIC DISEASE VISIT ANNUAL PCP TEAM CHRONIC DISEASE VISIT [facility] Start: 07-03-2023 ANNUAL PCP TEAM CHRONIC DISEASE VISIT ANNUAL PCP TEAM CHRONIC DISEASE VISIT [facility] Start: 07-03-2023 Hepatitis B surface antibody level LDL CHOLESTEROL [facility] Start: 06-20-2023 HEMOGLOBIN/HEMATOCRIT HEMOGLOBIN/HEMATOCRIT [facility] Start: 06-20-2023 SERUM CREATININE SERUM CREATININE [facility] Start: 06-05-2023 ANNUAL PCP TEAM CHRONIC DISEASE VISIT ANNUAL PCP TEAM CHRONIC DISEASE VISIT [facility] Start: 05-29-2023 HEMOGLOBIN/HEMATOCRIT HEMOGLOBIN/HEMATOCRIT [facility] Start: 05-06-2023 ANNUAL PCP TEAM CHRONIC DISEASE VISIT ANNUAL PCP TEAM CHRONIC DISEASE VISIT [facility] Start: 04-23-2023 HEMOGLOBIN/HEMATOCRIT HEMOGLOBIN/HEMATOCRIT [facility] Start: 04-17-2023 ANNUAL PCP TEAM CHRONIC DISEASE VISIT ANNUAL PCP TEAM CHRONIC DISEASE VISIT [facility] Start: 04-14-2023 Advance Directive Discussion Advance Directive Discussion [facility] Start: 04-14-2023 Behavioral Health Screening Behavioral Health Screening [facility] Start: 04-14-2023 Depression Assessment Depression Assessment [facility] Start: 04-08-2023 COVID-19 Vaccine (4 - Moderna risk series) COVID-19 Vaccine (4 - Moderna risk series) [facility] Start: 04-08-2023 Covid-19 Vaccine ( season) Covid-19 Vaccine ( season) [facility] Start: 03-18-2023 HEMOGLOBIN/HEMATOCRIT HEMOGLOBIN/HEMATOCRIT [facility] Start: 03-18-2023 SERUM CREATININE SERUM CREATININE [facility] Start: 02-24-2023 End: 12-24-2023 Ct thorax w/o contrast material CT CHEST WO IVCON Radiology Routine Renal cancer, right (HCC) Expected: 02/24/2023 (Approximate), Expires: 12/24/2023 [facility] Work Phone: Comment on above: Expected: 02/24/2023 (Approximate), Expi res: 12/24/2023 Start: 02-18-2023 HEMOGLOBIN/HEMATOCRIT HEMOGLOBIN/HEMATOCRIT [facility] Start: 01-23-2023 ANNUAL PCP TEAM CHRONIC DISEASE VISIT ANNUAL PCP TEAM CHRONIC DISEASE VISIT [facility] Start: 01-17-2023 HEMOGLOBIN/HEMATOCRIT HEMOGLOBIN/HEMATOCRIT [facility] Start: 12-13-2022 Covid-19 Vaccine () Covid-19 Vaccine () [facility] Start: 12-13-2022 HEMOGLOBIN/HEMATOCRIT HEMOGLOBIN/HEMATOCRIT [facility] Start: 12-13-2022 Influenza vaccination [facility] Start: 12-04-2022 End: 02-03-2023 CBC W Auto Differential panel - Blood CBC + DIFF Lab Routine Essential thrombocythemia (HCC) Expected: 12/04/2022 (Approximate), Expires: 02/03/2023 [facility] Work Phone: Comment on above: Expected: 12/04/2022 (Approximate), Expi res: 02/03/2023 Start: 12-03-2022 ANNUAL PCP TEAM CHRONIC DISEASE VISIT ANNUAL PCP TEAM CHRONIC DISEASE VISIT [facility] Start: 11-12-2022 HEMOGLOBIN/HEMATOCRIT HEMOGLOBIN/HEMATOCRIT [facility] Start: 11-12-2022 SERUM CREATININE SERUM CREATININE [facility] Start: 10-24-2022 End: 12-24-2022 CBC W Auto Differential panel - Blood CBC + DIFF Lab Routine Essential thrombocythemia (HCC) Expected: 10/24/2022, Expires: 12/24/2022 [facility] Work Phone: Comment on above: Expected: 10/24/2022, Expires: 3 Start: 10-24-2022 End: 12-24-2022 TYPE + SCREEN TYPE + SCREEN Blood Bank Routine Essential thrombocythemia (HCC) Expected: 10/24/2022, Expires: 12/24/2022 [facility] Work Phone: Comment on above: Expected: 10/24/2022, Expires: 3 Start: 10-22-2022 ANNUAL PCP TEAM CHRONIC DISEASE VISIT ANNUAL PCP TEAM CHRONIC DISEASE VISIT [facility] Start: 10-22-2022 BP CONTROLLED (<130/80) BP CONTROLLED (<130/80) [facility] Start: 10-22-2022 HEMOGLOBIN/HEMATOCRIT HEMOGLOBIN/HEMATOCRIT [facility] Start: 10-16-2022 HEMOGLOBIN/HEMATOCRIT HEMOGLOBIN/HEMATOCRIT [facility] Start: 10-10-2022 End: 12-10-2022 CBC W Auto Differential panel - Blood CBC + DIFF Lab Routine Essential thrombocythemia (HCC) Expected: 10/10/2022, Expires: 12/10/2022 [facility] Work Phone: Comment on above: Expected: 10/10/2022, Expires: Start: 10-02-2022 BP CONTROLLED (<130/80) BP CONTROLLED (<130/80) [facility] Start: 09-27-2022 HEMOGLOBIN/HEMATOCRIT HEMOGLOBIN/HEMATOCRIT [facility] Start: 09-21-2022 End: 11-21-2022 Comprehensive metabolic 2000 panel - Serum or Plasma COMP METABOLIC PANEL Lab Routine Essential thrombocythemia (HCC) Expected: 09/21/2022 (Approximate), Expires: 11/21/2022 [facility] Work Phone: Comment on above: Expected: 09/21/2022 (Approximate), Expi res: 11/21/2022 Start: 09-19-2022 BP CONTROLLED (<130/80) BP CONTROLLED (<130/80) [facility] Start: 09-12-2022 ANNUAL PCP TEAM CHRONIC DISEASE VISIT ANNUAL PCP TEAM CHRONIC DISEASE VISIT [facility] Start: 09-12-2022 BP CONTROLLED (<130/80) BP CONTROLLED (<130/80) [facility] Start: 09-11-2022 HEMOGLOBIN/HEMATOCRIT HEMOGLOBIN/HEMATOCRIT [facility] Start: 08-27-2022 End: 10-27-2022 TYPE + SCREEN [facility] Work Phone: Comment on above: Expected: 08/27/2022 (Approximate), Expi res: 10/27/2022 Start: 08-21-2022 Colonoscopy COLONOSCOPY [facility] Start: 08-21-2022 COLORECTAL CANCER SCREENING COLORECTAL CANCER SCREENING [facility] Start: 08-14-2022 HEMOGLOBIN/HEMATOCRIT HEMOGLOBIN/HEMATOCRIT [facility] Start: 08-12-2022 End: 10-12-2022 TYPE + SCREEN TYPE + SCREEN Blood Bank Routine Iron deficiency anemia due to chronic blood loss Expected: 08/12/2022 (Approximate), Expires: 10/12/2022 [facility] Work Phone: Comment on above: Expected: 08/12/2022 (Approximate), Expi res: 10/12/2022 Start: 07-25-2022 End: 09-24-2022 CBC W Auto Differential panel - Blood CBC + DIFF Lab Routine Iron deficiency anemia due to chronic blood loss Acute deep vein thrombosis (DVT) of popliteal vein of left lower extremity (HCC) Expected: 07/25/2022, Expires: 09/24/2022 [facility] [place] Work Phone: Comment on above: Expected: 07/25/2022, Expires: 3 Start: 07-17-2022 ANNUAL PCP TEAM CHRONIC DISEASE VISIT ANNUAL PCP TEAM CHRONIC DISEASE VISIT [facility] Start: 07-17-2022 HEMOGLOBIN/HEMATOCRIT HEMOGLOBIN/HEMATOCRIT [facility] Start: 07-02-2022 End: 09-01-2022 Alpha 1 antitrypsin [Mass/volume] in Serum or Plasma [facility] [place] Work Phone: Comment on above: Expected: 07/02/2022, Expires: 3 Start: 06-20-2022 BP CONTROLLED (<130/80) BP CONTROLLED (<130/80) [facility] Start: 06-19-2022 HEMOGLOBIN/HEMATOCRIT HEMOGLOBIN/HEMATOCRIT [facility] Start: 06-19-2022 SERUM CREATININE SERUM CREATININE [facility] Start: 05-28-2022 ANNUAL PCP TEAM CHRONIC DISEASE VISIT ANNUAL PCP TEAM CHRONIC DISEASE VISIT [facility] Start: 05-15-2022 FECAL OCCULT BLOOD FECAL OCCULT BLOOD [facility] Start: 05-15-2022 Screening for malignant neoplasm of colon Fecal Occult Blood [facility] Start: 05-13-2022 Diabetes mellitus screening Diabetes Screening [facility] Start: 04-30-2022 COVID-19 VACCINE (6 - Moderna risk series) COVID-19 VACCINE (6 - Moderna risk series) [facility] Start: 04-20-2022 DTaP/Tdap/Td Vaccines (2 - Td or Tdap) DTaP/Tdap/Td Vaccines (2 - Td or Tdap) [facility] Start: 04-20-2022 Urine microalbumin profile DTaP,Tdap,Td Vaccine (2 - Td or Tdap) [facility] Start: 04-14-2022 ADVANCE DIRECTIVE DISCUSSION ADVANCE DIRECTIVE DISCUSSION [facility] Start: 04-14-2022 DEPRESSION ASSESSMENT DEPRESSION ASSESSMENT [facility] Start: 04-05-2022 Adult depression screening assessment DEPRESSION SCREENING [facility] Start: 02-28-2022 SHINGRIX VACCINE (2 of 3) SHINGRIX VACCINE (2 of 3) [facility] Comment on above: Postponed from 11/12/2015 (Declined at t his time) Start: 02-28-2022 Urine microalbumin profile DTAP,TDAP,TD (1 - Tdap) [facility] Comment on above: Postponed from 1972 (Declined at t his time) Start: 02-27-2022 PNEUMOVAX AGE 65 AND OVER WITH 5YR LOOKBACK (#1) PNEUMOVAX AGE 65 AND OVER WITH 5YR LOOKBACK (#1) [facility] Start: 12-13-2021 Influenza vaccination INFLUENZA (#1) [facility] Start: 11-23-2021 COVID-19 VACCINE (5 - Booster for Moderna series) COVID-19 VACCINE (5 - Booster for Moderna series) [facility] Start: 10-24-2021 End: 12-24-2021 TYPE + SCREEN TYPE + SCREEN Blood Bank Routine Iron deficiency anemia due to chronic blood loss Expected: 10/24/2021 (Approximate), Expires: 12/24/2021 [facility] [place] Work Phone: Comment on above: Expected: 10/24/2021 (Approximate), Expi res: 12/24/2021 Start: 10-22-2021 End: 12-22-2021 CBC W Auto Differential panel - Blood [facility] [place] Work Phone: Comment on above: Expected: 10/22/2021, Expires: 2 Start: 10-22-2021 End: 12-22-2021 Iron and Iron binding capacity panel - Serum or Plasma [facility] [place] Work Phone: Comment on above: Expected: 10/22/2021, Expires: 2 Start: 10-16-2021 End: 12-16-2021 TYPE + SCREEN TYPE + SCREEN Blood Bank Routine Iron deficiency anemia due to chronic blood loss Expected: 10/16/2021 (Approximate), Expires: 12/16/2021 [facility] [place] Work Phone: Comment on above: Expected: 10/16/2021 (Approximate), Expi res: 12/16/2021 Start: 10-12-2021 End: 12-12-2021 Prostate Specific Ag Free [Mass/volume] in Serum or Plasma PSA FREE Lab Routine Elevated PSA Expected: 10/12/2021, Expires: 12/12/2021 [facility] [place] Work Phone: Comment on above: Expected: 10/12/2021, Expires: 2 Start: 10-02-2021 End: 12-02-2021 Lipid 1996 panel - Serum or Plasma LIPID PANEL BASIC Lab Routine Post PTCA Mixed hyperlipidemia Expected: 10/02/2021, Expires: 12/02/2021 [facility] [place] Work Phone: Comment on above: Expected: 10/02/2021, Expires: 2 Start: 09-18-2021 COVID-19 VACCINE (5 - Booster for Moderna series) COVID-19 VACCINE (5 - Booster for Moderna series) [facility] Start: 09-15-2021 End: 11-15-2021 Prostate specific Ag [Mass/volume] in Serum or Plasma PSA/PROSTSPECAG DIAG Lab Routine Elevated prostate specific antigen (PSA) Expected: 09/15/2021, Expires: 11/15/2021 [facility] [place] Work Phone: Comment on above: Expected: 09/15/2021, Expires: 2 Start: 09-06-2021 SHINGRIX VACCINE (2 of 2) SHINGRIX VACCINE (2 of 2) [facility] Start: 09-06-2021 SHINGRIX VACCINE (3 of 3) SHINGRIX VACCINE (3 of 3) [facility] Start: 08-24-2021 BP CONTROLLED (<130/80) BP CONTROLLED (<130/80) [facility] Start: 06-11-2021 COVID-19 VACCINE (4 - Booster for Moderna series) COVID-19 VACCINE (4 - Booster for Moderna series) [facility] Start: 04-14-2021 ADVANCE DIRECTIVE DISCUSSION ADVANCE DIRECTIVE DISCUSSION [facility] Start: 04-14-2021 DEPRESSION ASSESSMENT DEPRESSION ASSESSMENT [facility] Start: 02-27-2018 PNEUMOCOCCAL: 65+ (2 - PCV) PNEUMOCOCCAL: 65+ (2 - PCV) [facility] Start: 2013 RSV Vaccine (1 - 1-dose 60+ series) RSV Vaccine (1 - 1-dose 60+ series) [facility] Start: 1998 COLOGUARD (FIT-DNA) COLOGUARD (FIT-DNA) [facility] Start: [address] COLONOGRAPHY [facility] Start: 1998 Screening for malignant neoplasm of colon [facility] Start: 1998 SIGMOIDOSCOPY SIGMOIDOSCOPY [facility] Start: 10-27-1983 Zoledronic acid therapy ALPHA-1 ANTITRYPSIN DEFICIENCY SCREENING [facility] Start: 1972 Urine microalbumin profile [facility] Start: 10-27-1971 Anxiety Screening Anxiety Screening [facility] Start: 10-27-1971 Depression Screening Depression Screening [facility] Start: 10-27-1971 Hepatitis C screening Hepatitis C Screening [facility] Start: 10-27-1971 SPIROMETRY SPIROMETRY [facility] Start: 1965 Depression Screening Depression Screening [facility] Start: 1953 Lipid panel Lipid Panel [facility] Start: 1953 Medicare Annual Wellness (AWV) Medicare Annual Wellness (AWV) [facility] Start: 1953 Medicare Annual Wellness Visit Medicare Annual Wellness Visit (AWV) [facility] Start: 1955 Screening for malignant neoplasm of colon [facility] End: 08-14-2022 CBC W Auto Differential panel - Blood CBC + DIFF Lab Routine CLL (chronic lymphocytic leukemia) (HCC) Once per month for 20 Occurrences starting 08/14/2021 until 08/14/2022 [facility] [place] Work Phone: Comment on above: Once per month for 20 Occurrences starti ng 08/14/2021 until 08/14/2022 End: 03-22-2023 CBC W Auto Differential panel - Blood CBC + DIFF Lab Routine Essential thrombocythemia (HCC) Once per month for 20 Occurrences starting 03/22/2022 until 03/22/2023 [facility] [place] Work Phone: Comment on above: Once per month for 20 Occurrences starti ng 03/22/2022 until 03/22/2023 End: 06-21-2023 CBC W Auto Differential panel - Blood CBC + DIFF Lab Routine Essential thrombocythemia (HCC) Once per month for 20 Occurrences starting 06/21/2022 until 06/21/2023 [facility] [place] Work Phone: Comment on above: Once per month for 20 Occurrences starti ng 06/21/2022 until 06/21/2023 End: 08-02-2023 CBC W Auto Differential panel - Blood CBC + DIFF Lab Routine Essential thrombocythemia (HCC) Every other week for 10 Occurrences starting 08/02/2022 until 08/02/2023 [facility] [place] Work Phone: Comment on above: Every other week for 10 Occurrences star ting 08/02/2022 until 08/02/2023 End: 08-20-2023 CBC W Auto Differential panel - Blood CBC + DIFF Lab Routine Iron deficiency anemia due to chronic blood loss Every other week for 10 Occurrences starting 08/20/2022 until 08/20/2023 [facility] [place] Work Phone: Comment on above: Every other week for 10 Occurrences star roscoeg 08/20/2022 until 08/20/2023 Clostridioides difficile toxin genes [Presence] in Stool by MYA with probe detection C. DIFFICILE PCR Lab Routine Diarrhea, unspecified type Acute deep vein thrombosis (DVT) of left lower extremity, unspecified vein (HCC) 10/22/2021 3:30 PM EDT [facility] [place] Work Phone: End: 08-08-2023 COLONOSCOPY DIAGNOSTIC COLONOSCOPY DIAGNOSTIC Endoscopy Routine Gastrointestinal hemorrhage, unspecified gastrointestinal hemorrhage type 1 Occurrences starting 08/07/2022 until 08/08/2023 [facility] [place] Work Phone: Comment on above: 1 Occurrences starting 08/07/2022 until 08/08/2023 End: 08-20-2023 Comprehensive metabolic 2000 panel - Serum or Plasma COMP METABOLIC PANEL Lab Routine Iron deficiency anemia due to chronic blood loss Every other week for 10 Occurrences starting 08/20/2022 until 08/20/2023 [facility] [place] Work Phone: Comment on above: Every other week for 10 Occurrences star davis 08/20/2022 until 08/20/2023 End: 08-01-2023 Dup-scan xtr veins unilateral/limited study US DVT LOWER LT Radiology Routine Deep vein thrombosis (DVT) of left lower extremity, unspecified chronicity, unspecified vein (HCC) Localized swelling, mass and lump, left upper limb 1 Occurrences starting 07/02/2022 until 08/01/2023 [facility] [place] Work Phone: Comment on above: 1 Occurrences starting 07/02/2022 until 08/01/2023 ENTERIC BACTERIAL PANEL BY PCR ENTERIC BACTERIAL PANEL BY PCR Lab Routine Diarrhea, unspecified type 10/22/2021 3:30 PM EDT [facility] [place] Work Phone: End: 08-08-2023 ENTEROSCOPY ENTEROSCOPY Endoscopy Routine Gastrointestinal hemorrhage, unspecified gastrointestinal hemorrhage type 1 Occurrences starting 08/07/2022 until 08/08/2023 [facility] [place] Work Phone: Comment on above: 1 Occurrences starting 08/07/2022 until 08/08/2023 End: 08-14-2022 FERRITIN BLD FERRITIN BLD Lab Routine CLL (chronic lymphocytic leukemia) ([facility]) Once per month for 20 Occurrences starting 08/14/2021 until 08/14/2022 [facility] [place] Work Phone: Comment on above: Once per month for 20 Occurrences starti ng 08/14/2021 until 08/14/2022 Influenza virus A an d B RNA and SARS-CoV-2 (COVID-19) N gene panel - Respiratory specimen by MYA with probe detection COVID WITH FLUA+B, ROUTINE Microbiology Routine Chronic obstructive pulmonary disease with acute exacerbation (HCC) 07/02/2022 10:20 AM EDT [facility] [place] Work Phone: End: 09-19-2022 IRON + TIBC IRON + TIBC Lab Routine Iron deficiency anemia due to chronic blood loss Every 3 months for 20 Occurrences starting 09/19/2021 until 09/19/2022 [facility] [place] Work Phone: Comment on above: Every 3 months for 20 Occurrences starti ng 09/19/2021 until 09/19/2022 OCCULT BLD EXAM-DIAG OCCULT BLD EXAM-DIAG Microbiology Routine Diarrhea, unspecified type Ordered: 10/22/2021 [facility] [place] Work Phone: Comment on above: Ordered: 10/22/2021 End: 07-18-2022 Prostate specific Ag [Mass/volume] in Serum or Plasma PSA/PROSTSPECAG DIAG Lab Routine Elevated prostate specific antigen (PSA) 2 Occurrences starting 07/18/2021 until 07/18/2022 [facility] [place] Work Phone: Comment on above: 2 Occurrences starting 07/18/2021 until 07/18/2022 End: 01-17-2023 Prostate specific Ag [Mass/volume] in Serum or Plasma PSA/PROSTSPECAG DIAG Lab Routine Elevated prostate specific antigen (PSA) Atypical small acinar proliferation of prostate Every 6 months for 2 Occurrences starting 01/17/2022 until 01/17/2023 [facility] [place] Work Phone: Comment on above: Every 6 months for 2 Occurrences startin g 01/17/2022 until 01/17/2023 PT PLAN OF CARE CERTIFICATION PT PLAN OF CARE CERTIFICATION Procedures Routine Impaired functional mobility, balance, gait, and endurance Chronic pain of left knee Left hip pain Ordered: 07/09/2021 [facility] [place] Work Phone: Comment on above: Ordered: 07/09/2021 PT PLAN OF CARE CERTIFICATION PT PLAN OF CARE CERTIFICATION Procedures Routine Impaired functional mobility, balance, gait, and endurance Chronic pain of left knee Left hip pain Ordered: 08/27/2021 [facility] [place] Work Phone: Comment on above: Ordered: 08/27/2021 PT PLAN OF CARE CERTIFICATION PT PLAN OF CARE CERTIFICATION Procedures Routine Impaired functional mobility, balance, gait, and endurance Left hip pain Ordered: 10/09/2021 [facility] [place] Work Phone: Comment on above: Ordered: 10/09/2021 PT PLAN OF CARE CERTIFICATION PT PLAN OF CARE CERTIFICATION Procedures Routine Physical deconditioning Ordered: 05/31/2022 [facility] [place] Work Phone: Comment on above: Ordered: 05/31/2022 RED BLOOD CELLS, ADULT RED BLOOD CELLS, ADULT Blood Bank Routine Acute blood loss anemia Severe anemia Stage 3 chronic kidney disease, unspecified whether stage 3a or 3b CKD (HCC) Other iron deficiency anemia 08/27/2022 12:00 AM EDT [facility] [place] Work Phone: RED BLOOD CELLS, ADULT RED BLOOD CELLS, ADULT Blood Bank Routine Stage 3 chronic kidney disease, unspecified whether stage 3a or 3b CKD (HCC) Acute blood loss anemia Severe anemia Other iron deficiency anemia 10/08/2022 12:00 AM EDT [facility] [place] Work Phone: RSV B/O RSV B/O Lab Rout ine Chronic obstructive pulmonary disease with acute exacerbation (HCC) Ordered: 07/02/2022 [facility] [place] Work Phone: Comment on above: Ordered: 07/02/2022 SARS-CoV-2 (COVID-19 ) RNA [Presence] in Respiratory specimen by MYA with probe detection 2019 CORONAVIRUS Microbiology Routine Malaise and fatigue Ordered: 11/12/2022 [facility] [place] Work Phone: Comment on above: Ordered: 11/12/2022 End: 07-03-2023 Screening colonoscopy COLONOSCOPY SCREENING Endoscopy Routine History of colonic polyps 1 Occurrences starting 07/02/2022 until 07/03/2023 [facility] [place] Work Phone: Comment on above: 1 Occurrences starting 07/02/2022 until 07/03/2023 End: 08-01-2023 SPIROMETRY - BASELINE AND POST DILATOR SPIROMETRY - BASELINE AND POST DILATOR PFT Routine Chronic obstructive pulmonary disease with acute exacerbation (HCC) 1 Occurrences starting 07/02/2022 until 08/01/2023 [facility] [place] Work Phone: Comment on above: 1 Occurrences starting 07/02/2022 until 08/01/2023 SPIROMETRY - BASELIN E AND POST DILATOR SPIROMETRY - BASELINE AND POST DILATOR PFT Routine Chronic obstructive pulmonary disease with acute exacerbation (HCC) 07/18/2022 2:43 PM EDT [facility] [place] Work Phone: End: 11-15-2023 US DVT LOWER BILATERAL US DVT LOWER BILATERAL Radiology Routine Leg edema 1 Occurrences starting 10/16/2022 until 11/15/2023 [facility] [place] Work Phone: Comment on above: 1 Occurrences starting 10/16/2022 until 11/15/2023 End: 10-17-2022 US DVT LOWER BILATERAL [facility] [place] Work Phone: Comment on above: 1 Occurrences starting 10/17/2022 until 10/17/2022 End: 08-10-2023 US DVT LOWER RIGHT US DVT LOWER RIGHT Radiology Routine Iron deficiency anemia due to chronic blood loss Acute deep vein thrombosis (DVT) of popliteal vein of left lower extremity (HCC) Right calf pain 1 Occurrences starting 07/11/2022 until 08/10/2023 [facility] [place] Work Phone: Comment on above: 1 Occurrences starting 07/11/2022 until 08/10/2023 End: 07-18-2022 US DVT LOWER RIGHT [facility] [place] Work Phone: Comment on above: 1 Occurrences starting 07/18/2022 until 07/18/2022 End: 08-10-2023 US EXTREMITY MASS/FLUID COLLECTION LEFT US EXTREMITY MASS/FLUID COLLECTION LEFT Radiology Routine Iron deficiency anemia due to chronic blood loss Acute deep vein thrombosis (DVT) of popliteal vein of left lower extremity (HCC) Right calf pain 1 Occurrences starting 07/11/2022 until 08/10/2023 [facility] [place] Work Phone: Comment on above: 1 Occurrences starting 07/11/2022 until 08/10/2023 End: 07-18-2022 US EXTREMITY MASS/FLUID COLLECTION LEFT US EXTREMITY MASS/FLUID COLLECTION LEFT Radiology Routine Iron deficiency anemia due to chronic blood loss Acute deep vein thrombosis (DVT) of popliteal vein of left lower extremity (HCC) Right calf pain 1 Occurrences starting 07/18/2022 until 07/18/2022 [facility] [place] Work Phone: Comment on above: 1 Occurrences starting 07/18/2022 until 07/18/2022 [facility] Immunizations Immunization Date Immunization Notes Care Provider Fa cili 02-11-2023 Moderna COVID-19 vaccine, Fall 2022, 12 yeasrs and older (50mcg/0.5mL) Melinda Bradshaw MD Work Phone: [facility] Work Phone: 01-20-2023 RSV, 60 Years And Ol vickie (AREXVY) Melinda Bradshaw MD Work Phone: [facility] Work Phone: 01-10-2023 influenza, injectabl e, quadrivalent, contains preservative Melinda Bradshaw MD Work Phone: [facility] Work Phone: 01-10-2023 influenza virus vaccine, unspecified formulation Deysi Diop [employer] Work Phone: [facility] 03-15-2022 pneumococcal (PCV20) vaccine, 20 valent (PREVNAR 20) Annmarie Ronquillo PA-C Work Phone: [facility] Work Phone: 03-05-2022 Moderna COVID-19 vaccine, bivalent, blue cap/bee label *Check age/dose* Melinda Bradshaw MD Work Phone: [facility] Work Phone: 10-16-2021 zoster vaccine recombinant Ulises Ramos DO Work Phone: [facility] 07-24-2021 Pfizer Bee Cap SARS-CoV-2 Melinda Bradshaw MD Work Phone: [facility] Work Phone: 07-12-2021 zoster vaccine recombinant Loy Mcallister MD Work Phone: [facility] Work Phone: 05-22-2021 influenza, high-dose , quadrivalent vaccine (FLUZONE HIGH DOSE QUADRIVALENT) Sia Hodge PT Work Phone: [facility] 05-22-2021 influenza virus vaccine, unspecified formulation Marley Falk RD Work Phone: [facility] 07-19-2020 COVID-19 vaccine, fu ll dose (MODERNA) Sia Hodge PT Work Phone: [facility] 06-21-2020 COVID-19 vaccine, fu ll dose (MODERNA) Sia Hodge PT Work Phone: [facility] 01-19-2020 pneumococcal conjuga te vaccine, 13 valent Ulises Ramos DO Work Phone: [facility] 01-18-2020 influenza, high-dose , quadrivalent vaccine (FLUZONE HIGH DOSE QUADRIVALENT) Sia Hodge PT Work Phone: [facility] 01-18-2019 influenza, high dose seasonal, preservative-free Sia Hodge PT Work Phone: [facility] 01-20-2018 influenza, injectabl e, quadrivalent, preservative free Sia Hodge PT Work Phone: [facility] 02-27-2017 pneumococcal polysaccharide vaccine, 23 valent Sia Hodge PT Work Phone: [facility] 02-09-2017 Influenza, injectabl e, Madin Ifrah Canine Kidney, preservative free, quadrivalent Sia Hodge PT Work Phone: [facility] 01-31-2017 influenza, seasonal, injectable Sia Hodge PT Work Phone: [facility] 09-17-2015 zoster vaccine, live Sia Po tts PT Work Phone: [facility] 04-20-2012 influenza virus vaccine, unspecified formulation Melinda Bradshaw MD Work Phone: [facility] Work Phone: 04-20-2012 tetanus toxoid, redu myra diphtheria toxoid, and acellular pertussis vaccine, adsorbed Melinda Bradshaw MD Work Phone: [facility] Work Phone: Payers Date Payer Category Payer Self-pay 2022 Medicare [id number] 2020 Medicare MEDICARE SNF GEN QUENTIN [id number] 2020-Present [phone] [place] [id number] Medicare [id number] 2019 Unknown 2019 Unknown MMO MMO MEDICARE SUPPLEMENT [id number] 2019-Present [phone] [address] [place] [address] Indemnity [id number] 2018 Medicare MEDICARE MEDICAR E A AND B [id number] 2018-Present [phone] [address] [address] [place] [address] Medicare [id number] 2018 Medicare [id number] 1959 Medicare [id number] 1959 Unknown [id number] 1953 Unknown [id number] [id number]6 1953 Unknown [id number] 2.16.840.1.427177.3.579.2.1244 1953 Unknown [id number] 2.16.840.1.431413.3.579.2.627 1953 Unknown [id number] ..840.1.899877.3.579.2.627 1953 Unknown [id number] 2.16.840.1.015736.3.579.2.598 1953 Unknown [id number] 2.16.840.1.245280.3.579.2.598 1953 Unknown [id number] 2.16.840.1.299673.3.579.2.598 1953 Unknown [id number] 2.16.840.1.881507.3.579.2.598 1953 Unknown [id number] 2.16.840.1.818678.3.579.2.627 1953 Unknown [id number] 2.16.840.1.213521.3.579.2.627 1953 Unknown [id number] .16.840.1.038832.3.579.2.627 Unknown [id number] 2.16.840.1.731073.3.579.2.462 Unknown [id number] 2.16.840.1.313929.3.579.2.462 Unknown [id number] 2.16.840.1.166447.3.579.2.462 Unknown [id number] 2.840.1.528865.3.579.2.462 Unknown [id number] 2.840.1.737822.3.579.2.462 Unknown [id number] 2.840.1.151948.3.579.2.462 Unknown [id number] 2.840.1.413259.3.579.2.462 Unknown [id number] 2.840.1.680205.3.579.2.462 Unknown [id number] 2.840.1.280551.3.579.2.462 Unknown [id number] 2.840.1.071372.3.579.2.462 Unknown [id number] 2.840.1.780233.3.579.2.462 Unknown [id number] .840.1.220424.3.579.2.462 Unknown [id number] 2.16840.1.197714.3.579.2.462 Unknown [id number] 2.16840.1.389888.3.579.2.462 Unknown [id number] 2.16840.1.486238.3.579.2.462 Unknown [id number] 2.16.840.1.032816.3.579.2.462 Unknown [id number] 2.16.840.1.704692.3.579.2.462 Unknown [id number] 2.16.840.1.800566.3.579.2.462 Unknown [id number] 2.16.840.1.070376.3.579.2.462 Unknown [id number] 2.16.840.1.272997.3.579.2.462 Unknown [id number] 2.16.840.1.084905.3.579.2.462 Unknown [id number] 2.16.840.1.150601.3.579.2.462 Unknown [id number] 2.16.840.1.029828.3.579.2.462 Unknown [id number] 2.16.840.1.339729.3.579.2.462 Unknown [id number] 2.16.840.1.668975.3.579.2.462 Unknown [id number] 2.16.840.1.692217.3.579.2.462 Unknown [id number] 2.16.840.1.785774.3.579.2.462 Unknown [id number] 2.16.840.1.296120.3.579.2.462 Unknown [id number] 2.16.840.1.924990.3.579.2.462 Unknown [id number] 2.16.840.1.788598.3.579.2.462 Unknown [id number] 2.16.840.1.476188.3.579.2.462 Unknown [id number] 2.16.840.1.828314.3.579.2.462 Unknown [id number] 2.16.840.1.002769.3.579.2.462 Unknown [id number] 2.16.840.1.637406.3.579.2.462 Unknown [id number] 2.16.840.1.735729.3.579.2.462 Unknown [id number] 2.16.840.1.497862.3.579.2.462 Unknown [id number] 2.16.840.1.631405.3.579.2.462 Unknown [id number] 2.16.840.1.911160.3.579.2.462 Unknown [id number] 2.16.840.1.726083.3.579.2.462 Unknown [id number] 2.16.840.1.528048.3.579.2.462 Unknown [id number] 2.840.1.839016.3.579.2.462 Unknown [id number] 2.840.1.880635.3.579.2.462 Unknown [id number] 2.840.1.253888.3.579.2.462 Unknown [id number] 2.840.1.433818.3.579.2.462 Unknown [id number] 2.840.1.977137.3.579.2.462 Unknown [id number] 2.840.1.123252.3.579.2.462 Unknown [id number] 2.840.1.005818.3.579.2.462 Unknown [id number] 2.840.1.078474.3.579.2.462 Unknown [id number] 2.840.1.784500.3.579.2.462 Unknown [id number] 2.840.1.772753.3.579.2.462 Unknown [id number] 2.840.1.726525.3.579.2.462 Unknown [id number] 2.840.1.855524.3.579.2.462 Unknown [id number] 2.16840.1.537231.3.579.2.462 Unknown [id number] 2.16.840.1.812712.3.579.2.462 Unknown [id number] 2.16.840.1.450918.3.579.2.462 Unknown [id number] 2.16.840.1.845891.3.579.2.462 Unknown [id number] 2.16.840.1.094457.3.579.2.462 Unknown [id number] 2.840.1.378517.3.579.2.462 Unknown [id number] 2.840.1.535827.3.579.2.462 Unknown [id number] 2.840.1.167559.3.579.2.462 Unknown [id number] 2.840.1.873347.3.579.2.462 Unknown [id number] 2.840.1.420668.3.579.2.462 Unknown [id number] 2.840.1.388375.3.579.2.462 Unknown [id number] 2.840.1.481903.3.579.2.462 Unknown [id number] 2.840.1.726517.3.579.2.462 Unknown [id number] 2.840.1.175972.3.579.2.462 Unknown [id number] 2.840.1.644944.3.579.2.462 Unknown [id number] 2.840.1.681690.3.579.2.462 Unknown [id number] 2.840.1.010912.3.579.2.462 Unknown [id number] 2.16840.1.191033.3.579.2.462 Unknown [id number] 2.840.1.877449.3.579.2.462 Unknown [id number] 2.840.1.495044.3.579.2.462 Unknown [id number] 2.16.840.1.825274.3.579.2.462 Unknown [id number] 2.16.840.1.055038.3.579.2.462 Unknown [id number] 2.16.840.1.565894.3.579.2.462 Unknown [id number] 2.16.840.1.022246.3.579.2.462 Unknown [id number] 2.16.840.1.141625.3.579.2.462 Unknown [id number] 2.16.840.1.067121.3.579.2.462 Unknown [id number] 2.16.840.1.123443.3.579.2.462 Unknown [id number] 2.16.840.1.556858.3.579.2.462 Unknown [id number] 2.16.840.1.623478.3.579.2.462 Unknown [id number] 2.16.840.1.890319.3.579.2.462 Unknown [id number] 2.16.840.1.506744.3.579.2.462 Unknown [id number] 2.16.840.1.293987.3.579.2.462 Unknown [id number] 2.16840.1.452209.3.579.2.462 Unknown [id number] 2.16840.1.663463.3.579.2.462 Unknown [id number] 2.16840.1.738839.3.579.2.462 Unknown [id number] 2.16840.1.820223.3.579.2.462 Social History Date Type Detail Facility Start: 12-22-2015 End: 12-03-2021 Tobacco smoking status NHIS Ex-smoker [facility] Start: 12-21-1980 End: 12-21-1990 History of tobacco use Current smoker [facility] Start: 12-21-1980 End: 12-21-1990 History of tobacco use Cigarette Smoker [facility] End: 12-21-1990 History of tobacco use Cigar Smoker [facility] Start: 12-22-2015 End: 12-03-2021 Tobacco use and exposure Smokeless tobacco non-user [facility] Start: 06-20-2021 End: 12-19-2022 Alcohol intake Current drinker of alcohol (finding) [facility] Start: 05-20-2021 End: 07-04-2022 History SDOH Alcohol Frequency 2 [facility] Start: 05-20-2021 End: 07-04-2022 History SDOH Alcohol Std Drinks 98 [facility] Start: 05-20-2021 End: 07-04-2022 History SDOH Alcohol Binge 1 [facility] Start: 01-17-2021 History SDOH Alcohol Comment very little [facility] Start: 05-20-2021 End: 07-04-2022 History SDOH Social Connections Phone 5 [facility] Start: 05-20-2021 End: 07-04-2022 History SDOH Social Connections Living 4 [facility] Start: 05-20-2021 History SDOH Physical Activity DPW 0 [facility] Start: 05-20-2021 End: 07-04-2022 History SDOH Stress 3 [facility] Start: 1955 Sex Assigned At Not on file [facility] Start: 06-26-2021 End: 02-20-2023 Exposure to SARS-CoV-2 (event) Not sure [facility] Start: 10-08-2021 End: 10-18-2021 Exposure to SARS-CoV-2 (event) Yes [facility] Start: 07-04-2022 End: 08-16-2022 History of Social function [facility] Start: 07-04-2022 End: 08-16-2022 Social connection and isolation panel [facility] How often do you att end judaism or christianity services? Patient refused [facility] Do you belong to any clubs or organizations such as judaism groups, unions, fraternal or athletic groups, or school groups? No [facility] Are you now , , , , never or living with a partner? [facility] How often to you hav e a drink containing alcohol? Monthly or less [facility] How many standard dr inks containing alcohol do you have on a typical day? 3 or 4 [facility] How hard is it for y ou to pay for the very basics like food, housing, medical care, and heating Somewhat hard [facility] Do you feel stress - tense, restless, nervous, or anxious, or unable to sleep at night because your mind is troubled all the time - these days [OSQ] Only a little [facility] (I/We) worried wheth er (my/our) food would run out before (I/we) got money to buy more. DK or Refused [facility] Start: 02-20-2023 Tobacco smoking status NHIS Never smoked tobacco [facility] Work Phone: Start: 02-20-2023 Alcohol intake Ex-drinker (finding) [facility] Work Phone: Start: 12-19-2022 Tobacco smoking status Heavy tobacco smoker (finding) [facility] Start: 1955 Sex Assigned At Male [facility] Start: 05-05-2023 Gender identity Identifies as male gender (finding) [facility] Sexual Orientation [facility] Start: 12-19-2022 Sex Male (finding) [facility] Medical Equipment Procedure Code Equipment Code Equipment Original Text Equipment Identifier Dates Nail 11mm 400mm 125d Long Ti-15mo Ti-6al-[id number] Cocr Intramedullary Green [id number] Start: 07-23-2020 5mm Ti Lck Scr W /[id number] Sdriv 50mm F/Im Nail-St _imp Start: 07-23-2020 Screw Tfn-Advanc ed 10.35mm 3.5mm Bowen T-[id number] 90mm Bone Cannulated - [id number]_imp Start: 07-23-2020 Stent-10/26/2018 [id number] Start: 2018 Femur Rodding Intramedullary Unknown 05/24/24 Unknown Unknown FDA Start: 05-24-2024 Femur Rodding Intramedullary Unknown 05/24/24 Unknown Unknown FDA Start: 05-24-2024 Femur Rodding Intramedullary Unknown 05/24/24 Unknown Unknown FDA Start: 05-24-2024 Femur Rodding Intramedullary Unknown 05/24/24 Unknown Unknown FDA Start: 05-24-2024 Femur Rodding Intramedullary Unknown 05/24/24 Unknown Unknown FDA Start: 05-24-2024 Goals Date Patient Goal Desired Activity /State [...] instructions Functional Status Date Assessment Result Facility 05-26-2024 Functional Status Up to chair [facility] 05-26-2024 Functional Status Independent [facility] 05-26-2024 Functional Status Breakfast Percent 90 [facility] 05-26-2024 Functional Status Room check performed [facility] 05-26-2024 Functional Status Nurse Safety Karsten zhang q2hrs Performed 7pm-7am [facility] 05-26-2024 Functional Status [facility] 05-26-2024 Functional Status [facility] 05-25-2024 Functional Status [facility] 05-25-2024 Functional Status [facility] 05-25-2024 Functional Status [facility] 05-25-2024 Functional Status [facility] 05-25-2024 Functional Status Max A [facility] 05-25-2024 Functional Status bilateral knee high domenic lied/on [facility] 05-24-2024 Functional Status [facility] 05-24-2024 Functional Status ice chips and sips take n [facility] 05-24-2024 Functional Status [facility] 05-24-2024 Functional Status [facility] 05-23-2024 Functional Status Linen Change Done [facility] 05-23-2024 Functional Status [facility] 05-23-2024 Functional Status Sensory Deficits None A [facility] 05-03-2024 Functional Status Multilevel armando e, Other: he lives in the basement. [facility] 05-03-2024 Functional Status bilateral knee high domenic lied/on [facility] 05-03-2024 Functional Status Done [facility] 05-03-2024 Functional Status [facility] 05-03-2024 Functional Status [facility] 05-03-2024 Functional Status [facility] 05-02-2024 Functional Status 7am-7pm [facility] 05-02-2024 Functional Status [facility] 05-02-2024 Functional Status [facility] 05-02-2024 Functional Status [facility] 05-02-2024 Functional Status [facility] 05-02-2024 Functional Status Sensory Deficits None A [facility] 05-01-2024 Functional Status Identified as high risk, Room located near nursing station, Door open, Room check performed [facility] 05-01-2024 Functional Status [facility] 05-01-2024 Functional Status [facility] 05-05-2023 Functional Status Room check performed [facility] 05-05-2023 Functional Status [facility] Mental Status Date Assessment Result Facility 05-26-2024 [facility] Mental Status Oriented x 4 [facility] 05-02-2024 Mental Status [facility] 05-02-2024 Mental Status [facility] 05-01-2024 Mental Status Orientation Oriented x 4 [facility] 05-01-2024 Mental Status [facility] 05-05-2023 Mental Status Orientation Oriented x 4 [facility] 05-05-2023 Mental Status [facility] Clinical Notes 07-22-2020 to 07-07-2024 Note Date & Type Note Facility 07-07-2024 Note [facility] 05-26-2024 Note [facility] 05-26-2024 Hospital Discharg e instructions Patient Education 05/26/2024 14:26:10 Intramedullary Nailing of Hip Fracture, Care After Intramedullary Nailing of Hip Fracture, Care After This sheet gives you information about how to care for yourself after your procedure. Your health care provider may also give you more specific instructions. If you have problems or questions, contact your health care provider. What can I expect after the surgery? After the procedure, it is common to have these symptoms in your hip area: Pain. Swelling. Tenderness. Stiffness and weakness. Follow these instructions at home: Medicines Take jbho-ljh-ffzbthx and prescription medicines only as told by your health care provider. Ask your health care provider if the medicine prescribed to you: ?Requires you to avoid driving or using heavy machinery. ?Can cause constipation. You may need to take actions to prevent or treat constipation, such as: ?Drink enough fluid to keep your urine pale yellow. ?Take kjkp-deo-focxnpf or prescription medicines. ?Eat foods that are high in fiber, such as beans, whole grains, and fresh fruits and vegetables. ?Limit foods that are high in fat and processed sugars, such as fried or sweet foods. Bathing Do not take baths, swim, or use a hot tub until your health care provider approves. Ask your health care provider if you may take showers. You may only be allowed to take sponge baths. Keep your bandage (dressing) dry if you shower or take a sponge bath. Incision care Follow instructions from your health care provider about how to take care of your incision. Make sure you: ?Wash your hands with soap and water before and after you change your dressing. If soap and water are not available, use hand scanning tech. ?Change your dressing as told by your health care provider. ?Leave stitches (sutures), skin glue, or adhesive strips in place. These skin closures may need to stay in place for 2 weeks or longer. If adhesive strip edges start to loosen and curl up, you may trim the loose edges. Do not remove adhesive strips completely unless your health care provider tells you to do that. Check your incision area every day for signs of infection. Check for: ?More redness, swelling, or pain. ?Fluid or blood. ?Warmth. ?Pus or a bad smell. Managing pain, stiffness, and swelling If directed, put ice on the affected area. ?Put ice in a plastic bag. ?Place a towel between your skin and the bag. ? Leave the ice on for 20 minutes, 2 3 times a day. Move your toes often to reduce stiffness and swelling. Raise (elevate) the injured area above the level of your heart while you are lying down. Activity Rest as told by your health care provider. Use your crutches or walker as told by your health care provider. Your health care provider will let you know how much weight you can put on your leg. Your health care provider will do X-rays to check bone healing. As healing progresses, you may be allowed to put more weight on your leg. Avoid sitting for a long time without moving. Get up to take short walks every 1 2 hours. This is important to improve blood flow and breathing. Ask for help if you feel weak or unsteady. Keep all your physical therapy appointments. Do exercises as told by your health care provider. These exercises will prevent weakness and stiffness in your hip. Return to your normal activities as told by your health care provider. Ask your health care provider what activities are safe for you. It may take several months to heal completely. Ask your health care provider when it is safe to drive. General instructions Do not use any products that contain nicotine or tobacco, such as cigarettes, e-cigarettes, and chewing tobacco. These can delay bone healing after surgery. If you need help quitting, ask your health care provider. Take steps to prevent falls at home, such as removing throw rugs and tripping hazards. Keep all follow-up visits as told by your health care provider. This is important. Contact a health care provider if: You are not getting relief from your pain medicine. You have more redness, swelling, or pain around your incision. You have fluid or blood coming from your incision. Your incision feels warm to the touch. You have pus or a bad smell coming from your incision. Get help right away if: You have a fever and chills. You have chest pain or trouble breathing. Your incision breaks open. You have severe pain that does not get better with medicine. Summary After your surgery, it is normal to have some pain, swelling, and tenderness. Take cknv-nvw-vgbyxji and prescription medicines only as told by your health care provider. Follow instructions from your health care provider about how to take care of your incision. Check your incision area every day for signs of infection. Return to your normal activities as told by your health care provider. Ask your health care provider what activities are safe for you. It may take several months to heal completely. Keep all follow-up visits as told by your health care provider. This information is not intended to replace advice given to you by your health care provider. Make sure you discuss any questions you have with your health care provider. Document Released: 02/01/2019 Document Revised: 02/01/2019 Document Reviewed: 02/01/2019 [employer] Patient Education 2020 [employer]. Follow Up Care 05/23/2024 09:51:10 With:ELIJAH OROZCO MD Address: [facility] [address] [place] [address]- When:1-2 days Comments:Please call the office to schedule a hospital follow up appointment. With:MATT RAMSEY DO Address: [address] [facility]/[place] [address]- [phone] When:Within 2 Week(s) Comments:Call office to verify/schedule appointment as soon as possible for post-op visit 2 weeks from discharge. [facility] 05-26-2024 Discharge summary Date of Service 05/26/2024 Discharge Diagnosis Mechanical fall Right sided comminuted intra-articular hip fracture status post cephalomedullary nailing, 05/24/2024 Acute on chronic anemia, secondary to blood loss from surgery, status post 1 unit PRBC transfusion Hematoma of the right hip COPD without exacerbation Hypertension Hyperlipidemia Chronic leukocytosis in the setting of chronic lymphocytic leukemia Coronary artery disease Obstructive sleep apnea GERD History of DVT/PE with presence of IVC filter A-fib on Xarelto CKD stage III, stable Status post nephrectomy Constipation Presence of bilateral tympanic membranes tubes Decreased hearing Hospital Course 68 years old male with past medical history significant for chronic lymphocytic leukemia, right upper lobe lung nodule status post biopsy in 2023 reportedly benign, nephrectomy and CKD stage III, COPD, hypertension, hyperlipidemia, coronary artery disease without angina, obstructive sleep apnea, GERD, DVT/PE with presence of IVC filter, A-fib on Xarelto, chronic anemia, decreased hearing, bilateral tympanic membrane tube placement who presented to [facility] after experiencing a fall. Patient had recent hospitalization last month for pneumonia and COPD exacerbation and was discharged home on October 01. On presentation, she was hemodynamically stable. CBC showing chronic leukocytosis, hemoglobin 10.0. BMP showed creatinine 1.55 that is around her baseline. Ethanol level undetectable. Imaging was performed including CT head, CT cervical spine, x-ray hip as well as CT pelvis and patient found to have comminuted right intra-articular hip fracture with surrounding hematoma, large amount of rectal stool with distention and presacral stranding, diverticulosis, increased number of mesenteric and perirectal lymph nodes and a small fat-containing left inguinal hernia. EKG on admission showed sinus rhythm with left anterior fascicular block. Patient admitted under hospital service with orthopedics in consultation. Patient underwent cephalomedullary nailing on 05/24/2024 and tolerated the procedure well. Did require 1 unit PRBC transfusion for acute on chronic anemia secondary to blood loss during the surgery with hemoglobin as low as 7. Hemoglobin 8.1 on the day of discharge. . He was resumed on his Xarelto after the surgery. PT/OT recommended inpatient therapy. Orthopedics cleared him for discharge with outpatient follow-up. Outpatient CBC ordered to be performed at the facility. Patient being discharged to SNF and should follow-up with his primary care physician and orthopedics after discharge. Allergies doxycycline penicillin Consults Consult to Anesthesia - Ordered -- 05/23/24 13:37:00 EST, surgery pending Consult to Physician - Ordered -- 05/23/24 13:50:00 EST, BUSINESS OPERATIONS DIRECTOR, MATT DO, Routine, Right hip fracture Imaging Results and Diagnostics XR Fluoro 1-2 Hrs Tech Time Result Date: May 24, 2024 Verified By: OLIVIER CHICAS DO CLINICAL STATEMENT: IMPRESSION: Please see procedure note for further detail. CT Pelvis w/o Contrast Result Date: May 23, 2024 Verified By: OLIVIER CHICAS DO CLINICAL STATEMENT: IMPRESSION: CT Head or Brain w/o Contrast Result Date: May 23, 2024 Verified By: OLIVIER CHICAS DO CLINICAL STATEMENT: IMPRESSION: 1. No acute intracranial abnormality.2. New fluid within bilateral mastoid air cells. Correlate for mastoiditis. CT Spine Cervical w/o Contrast Result Date: May 23, 2024 Verified By: MAXI PALOMO DO CLINICAL STATEMENT: IMPRESSION: No acute abnormality of the cervical spine. Aerated secretions within the visualized sphenoid sinuses with bilateralmastoid effusions. Findings may represent acute sinusitis in appropriateclinical setting. XR Chest 1 View Result Date: May 23, 2024 Verified By: MAXI PALOMO DO CLINICAL STATEMENT: IMPRESSION: No acute radiographic findings. XR Hip Right w/Pelvis 4 Views Result Date: May 23, 2024 Verified By: OLIVIER CHICAS DO CLINICAL STATEMENT: IMPRESSION: Physical Exam Vitals and Measurements T: 36.6 C (Oral) HR: 100 (Apical) RR: 16 BP: 158/83 SpO2: 99% Weight Dosing Weight: 81.8 kg (05/23/24) Dosing Weight: 81.8 kg (05/23/24) General: Patient is not in acute distress Neck: Supple, No JVD HEENT: Normocephalic, atraumatic Cardiac: Regular rate and rhythm, S1 and S2 present, Lungs: Bilateral air entry present, no wheezing or crackles Abdomen: Bowel sounds audible, abdomen is soft, nontender, non-distended, Musculoskeletal: Right hip dressing is clean, no significant bruising Extremities: Sensation intact bilaterally, no significant lower extremity edema Skin: Warm, well perfused, no bruises Neurological: Alert and orientated x3, grossly nonfocal Code Status No qualifying data available. Admission Date 05/23/2024 Discharge Date 05/26/2024 Patient Instructions Please take your medications as prescribed and follow-up with your primary care physician as well as orthopedics after discharge. Get your blood work done to follow-up your hemoglobin. If your symptoms worsen, call your primary care physician or go to nearest ER. Medications Unchanged acetaminophen-oxyCODONE (Percocet 5 mg-325 mg oral tablet)1 tab(s) by mouth every 4 hours as needed as needed for pain for 7 Days. Refills: 0. albuterol (albuterol MDI (90 mcg/inh) CFC free inhalation aerosol)2 inh by inhalation every 6 hours as needed as needed for wheezing for 30 Days. Refills: 0. albuterol (albuterol MDI (90 mcg/inh) CFC free inhalation aerosol)1 puff(s) by inhalation every 4 hours as needed as needed for shortness of breath or wheezing. ascorbic acid (Vitamin C)2,000 Milligram by mouth once a day. budesonide/formoterol/glycopyrrol ate (Breztri Aerosphere 160 mcg-9 mcg-4.8 mcg/inh inhalation aerosol)2 puff(s) by inhalation two (2) times a day. rinse mouth and throat after use. calcitriol (calcitriol 0.25 mcg oral capsule)50 Microgram by mouth once a day. calcium carbonate (calcium (as carbonate) 600 mg oral tablet)1 tab(s) by mouth once a day. cyclobenzaprine (cyclobenzaprine 10 mg oral tablet)1 tab(s) by mouth three (3) times a day as needed Muscle spasm. TAKE 1 TABLET BY MOUTH THREE TIMES DAILY. escitalopram (escitalopram 5 mg oral tablet)1 tab(s) by mouth once a day. evolocumab (Repatha Prefilled Syringe)once a month. evolocumab (Repatha SureClick 140 mg/mL subcutaneous solution)140 Milligram Subcutaneous once a month. rotate injection sites. ferrous sulfate (ferrous sulfate 200 mg (65 mg elemental iron) oral tablet)1 tab(s) by mouth every day. fluticasone/umeclidinium/vilanter ol (Trelegy Ellipta 200 mcg-62.5 mcg-25 mcg/inh inhalation powder)1 puff(s) by inhalation once a day as needed Shortness of breath or wheezing. at the same time every day. hydroxyurea (hydroxyurea 500 mg oral capsule)3 cap by mouth every Fri / / Fri / / Fri and Friday. EXCEPT FOR SUNDAYS. magnesium oxide (magnesium oxide 400 mg oral tablet)2 tab(s) by mouth once a day. metoprolol (Metoprolol Succinate ER 100 mg oral TABLET extended release)1 tab(s) by mouth once a day. multivitamin with minerals (Vitamin D with Minerals oral tablet, chewable)1 tab(s) Chewed once a day. omeprazole (omeprazole 40 mg oral delayed release capsule)1 cap by mouth once a day. TAKE 1 CAPSULE BY MOUTH ONCE DAILY. ondansetron (ondansetron 8 mg oral tablet)1 tab(s) by mouth once as needed Nausea, mild. rivaroxaban (Xarelto 10 mg oral tablet)1 tab(s) by mouth daily at bedtime. zolpidem (zolpidem 10 mg oral tablet)1 tab(s) by mouth daily at bedtime as needed as needed for sleep. Follow Up Follow Up with ELIJAH OROZCO MD When:Within 1-2 days Where:[facility] [address] [place] [address]- Additional Information: Please call the office to schedule a hospital follow up appointment. Follow Up with MATT RAMSEY DO When:In 2 weeks Where:[address] [facility]/[place] [address]- [phone] Additional Information: Call office to verify/schedule appointment as soon as possible for post-op visit 2 weeks from discharge. Follow Up Appointments Transfer of Care OT - Ordered -- Reason for therapy: Hip fracture, 05/26/24 12:05:00 EST Transfer of Care PT - Ordered -- Reason for therapy: Hip fracture, 05/26/24 12:05:00 EST Follow Up Labs/Studies Discharge Labs Transfer of Care Labwork - Ordered -- CBC, Anemia, follow-up within: 3-5 days, Results Notify to: ELIJAH OROZCO MD, 05/26/24 12:05:00 EST Discharge Studies No Follow-up Studies Discharge Diet Transfer of Care Diet - Ordered -- Type of Diet: Regular Diet, 05/26/24 12:05:00 EST Discharge Activity Transfer of Care Activity - Ordered -- As instructed by therapy, 05/26/24 12:05:00 EST Condition on Discharge Fair Discharge Disposition SNF Time Spent Total time spent reviewing labs, diagnostics, evaluating the patient, and medical decision makin minutes Digitally Signed by JONEL MATIAS MD on 05/26/2024 03:[address] [facility] 05-26-2024 Orthopaedic surgery Progress note Date of Service 05/26/2024 Chief Complaint Postop day 2 right hip cephalomedullary nail Subjective Patient was examined at bedside this morning was resting comfortably. No acute events overnight. States that he worked with physical therapy yesterday and it went well. Was able to walk a few feet with a walker but states it was painful. States he is feeling slightly better this morning. Denies any numbness or tingling. All questions answered at bedside. Objective Vitals and Measurements T: 36.6 C (Oral) TMIN: 36.6 C (Oral) TMAX: 37.1 C (Axillary) HR: 99 RR: 16 BP: 135/76 SpO2: 96% Intake and Output 7AM Yesterday to 7AM Today Intake and Output (Last 24 hours) Intake Red Blood Cells Amount Transfused 300.00 Oral Intake 1490.00 Supplement Intake 237.00 Output Urine Voided 2100.00 Stool Count 1.00 Urine Count 2.00 Diaper Count 1.00 Total Summary Total Intake 2027.00 Total Output 2100.00 Fluid Balance -73.00 Physical Exam Right lower extremity -Dressing is clean dry and intact without signs of infection -Skin pink and well perfused -Sensation intact to light touch L3-S1 -Gross motor function intact to dorsi/plantarflexion of ankle and toes -DP, TP pulses palpable -Compartments are soft and compressible -No calf tenderness Weight Dosing Weight: 81.8 kg (05/23/24) Dosing Weight: 81.8 kg (05/23/24) Medications Medications (26) Active Scheduled: (11) acetaminophen 325 mg Tablet 650 mg 2 tab(s), Oral, QID albuterol - ipratropium 2.5 mg-0.5 mg/3 mL Inhal Marianela UD 3 mL, Inhalation, TIDRT budesonide 0.5 mg/2 mL Susp UD 0.5 mg 2 mL, Inhalation, BIDRT calcitriol 0.25 mcg Capsule 0.5 mcg 2 cap(s), Oral, qDay calcium carbonate 500 mg Chewable 500 mg 1 tab(s), Chewed, qDay escitalopram 5 mg tablet 5 mg 1 tab(s), Oral, qDay hydroxyurea 500 mg capsule 1,500 mg 3 cap(s), Oral, Fri//Fri//Fri/Sat metoprolol succinate 100 mg ER tablet 100 mg 1 tab(s), Oral, qDay mupirocin 2% Ointment 22 Gram(s) tube 1 domenic, Nostril, each, BID omeprazole [address] capsule 40 mg 1 cap(s), Oral, qDay rivaroxaban 10 mg tablet 10 mg 1 tab(s), Oral, qHS Continuous: (0) PRN: (15) acetaminophen 325 mg Tablet 650 mg 2 tab(s), Oral, q4h acetaminophen-HYDROcodone 325-5 mg tablet 1 tab(s), Oral, q4h Al hydrox/Mg hydrox/simethicone 200-200-20 mg/5 mL Susp UD 30 mL, Oral, q2h albuterol - ipratropium 2.5 mg-0.5 mg/3 mL Inhal Marianela UD 3 mL, Inhalation, q2hRT bisacodyl 5 mg EC tablet 10 mg 2 tab(s), Oral, qDay clonidine 0.1 mg tablet 0.1 mg 1 tab(s), Oral, q6h dextrose 50% Solution Disp syringe 50 mL 12.5 gram(s) 25 mL, IV Push, AsDirected docusate sodium 100 mg Capsule 100 mg 1 cap(s), Oral, BID hydromorphone 1 mg/mL (1mL) INJ 1 mg 1 mL, IV Push, q3h melatonin 3 mg tablet 3 mg 1 tab(s), Oral, qHS morphine 2 mg/mL 1 mL syringe 2 mg 1 mL, IV Push, q3h ondansetron 2 mg/ 1 mL 2 mL INJ 4 mg 2 mL, IV Push, q4h polyethylene glycol 3350 - UD packet 17 gram(s) 15 mL, Oral, qDay tramadol 50 mg Tablet 50 mg 1 tab(s), Oral, q6h zolpidem 5 mg tablet 10 mg 2 tab(s), Oral, qHS Lab Results 05/25 16:12 Hgb: 8.7 L Hct: 26.8 L 05/25 06:48 WBC: 19.9 H Hgb: 7.0 L Hct: 21.1 L Platelet: 192 Glucose Level: 131 H Sodium Level: 140 Potassium Level: 4.4 BUN: 23.0 H Creatinine Lvl (s): 1.33 EKG No qualifying data available. Assessment/Plan Intertrochanteric fracture of right hip Postoperative day # 2 from a right hip cephalomedullary nail -PT/OT: Weightbearing as tolerated right lower extremity -Okay to resume home Xarelto for DVT prophylaxis -Post op Hgb is pending -Maintain dressing, reinforce as needed. May change if oversaturated -Finish 24-hour postop course of antibiotics tomorrow -Medical management per hospitalist service -Case management consulted for discharge planning - Patient is stable from an orthopedic standpoint at this time, orthopedics signing off but is available if needed. Please call with any questions or concerns. -We will discuss with attending, Dr. Guerrero Digitally Signed by JHOAN OSPINA DO on 05/26/2024 06:[address] [facility] 05-26-2024 Note Discharge Instructions Thank you for allowing [facility] to assist you with your healthcare needs. The following is important discharge information regarding your hospital visit. Your Care Team ELIJAH OROZCO MD Your Diagnosis Intertrochanteric fracture of right hip What to do next Instructions From Your Doctor Please take your medications as prescribed and follow-up with your primary care physician as well as orthopedics after discharge. Get your blood work done to follow-up your hemoglobin. If your symptoms worsen, call your primary care physician or go to nearest ER. Follow Up Appointments Follow Up with ELIJAH OROZCO MD When:Within 1-2 days Where:[facility] [place] [address]- Additional Information: Please call the office to schedule a hospital follow up appointment. Follow Up with MATT RAMSEY DO When:In 2 weeks Where:[address] [facility]/[place] [address]- [phone] Additional Information: Call office to verify/schedule appointment as soon as possible for post-op visit 2 weeks from discharge. The Following Activity and Diet Have Been Ordered for You Discharge Activity - Ordered -- Activity As Tolerated, Weight bearing as tolerated to operative extremity., 05/23/24 14:34:00 EST Transfer of Care Activity - Ordered -- As instructed by therapy, 05/26/24 12:05:00 EST Transfer of Care Diet - Ordered -- Type of Diet: Regular Diet, 05/26/24 12:05:00 EST The Following Equipment Has Been Ordered for You Discharge Home Equipment Discharge Wound Care - Ordered -- Surgical dressing to remain in place for 5-7 days. Reapply dry sterile dressing daily if needed after. Ok to shower. Do not soak/suberge surgical site in water for extended periods of time., 05/23/24 14:34:00 EST The Following Treatments Have Been Ordered for You Discharge Labs Transfer of Care Labwork - Ordered -- CBC, Anemia, follow-up within: 3-5 days, Results Notify to: ELIJAH OROZCO MD, 05/26/24 12:05:00 EST Discharge Radiology No qualifying data available. Other Therapies Transfer of Care OT - Ordered -- Reason for therapy: Hip fracture, 05/26/24 12:05:00 EST Transfer of Care PT - Ordered -- Reason for therapy: Hip fracture, 05/26/24 12:05:00 EST Post Acute Orders Transfer of Care Admission Level of Care - Ordered -- Level of Care SNF, 05/26/24 12:05:10 EST Transfer of Care Code Status - Ordered -- Full Code, Constant Order Transfer of Care Communication Order - Ordered -- Expect less than 30 day stay., 05/26/24 12:05:10 EST Transfer of Care CPAP as at home - Ordered Transfer of Care Labwork - Ordered -- CBC, Anemia, follow-up within: 3-5 days, Results Notify to: ELIJAH OROZCO MD, 05/26/24 12:05:00 EST Transfer of Care Orders Electronically Signed By - Ordered -- 05/26/24 12:05:00 EST, JONEL MATIAS MD Transfer of Care Prognosis - Ordered -- Fair, Patient Aware: Yes Transfer of Care Rehab Potential - Ordered -- Rehab potential fair, 05/26/24 12:05:10 EST Someone Will Contact You Regarding These Home Health Referrals No home referrals have been ordered for you. No one will call you. Allergies doxycycline penicillin Medications Please ask your primary doctor or pharmacist before taking any other medication not listed, including over the counter drugs, herbal medications, vitamins and or supplements as they may interact with your home medications. What How Much When Why Instructions Last Dose Unchanged acetaminophen-oxyCODONE (Percocet 5 mg-325 mg oral tablet) 1 tab(s) by mouth Every 4 hours as needed for as needed for pain Intertrochanteric fracture of right hip Duration: 7 Days Pickup at [facility]/pharmacy #[id number] Unchanged albuterol (albuterol MDI (90 mcg/ inh) CFC free inhalation aerosol) 2 inh by inhalation Every 6 hours as needed for as needed for wheezing Duration: 30 Days Unchanged albuterol (albuterol MDI (90 mcg/ inh) CFC free inhalation aerosol) 1 puff(s) by inhalation Every 4 hours as needed for as needed for shortness of breath or wheezing Unchanged ascorbic acid (Vitamin C) 2,000 Milligram by mouth Once a day Unchanged budesonide/ formoterol/ glycopyrrolate (Breztri Aerosphere 160 mcg-9 mcg-4.8 mcg/ inh inhalation aerosol) 2 puff(s) by inhalation Two (2) times a day rinse mouth and throat after use Unchanged calcitriol (calcitriol 0.25 mcg oral capsule) 50 Microgram by mouth Once a day Unchanged calcium carbonate (calcium (as carbonate) 600 mg oral tablet) 1 tab(s) by mouth Once a day Unchanged cyclobenzaprine (cyclobenzaprine 10 mg oral tablet) 1 tab(s) by mouth Three (3) times a day as needed for Muscle spasm TAKE 1 TABLET BY MOUTH THREE TIMES DAILY Unchanged escitalopram (escitalopram 5 mg oral tablet) 1 tab(s) by mouth Once a day Unchanged evolocumab (Repatha Prefilled Syringe) Once a month Unchanged evolocumab (Repatha SureClick 140 mg/ mL subcutaneous solution) 140 Milligram Subcutaneous Once a month rotate injection sites Unchanged ferrous sulfate (ferrous sulfate 200 mg (65 mg elemental iron) oral tablet) 1 tab(s) by mouth Every day Unchanged fluticasone/ umeclidinium/ vilanterol (Trelegy Ellipta 200 mcg-62.5 mcg-25 mcg/ inh inhalation powder) 1 puff(s) by inhalation Once a day as needed for Shortness of breath or wheezing at the same time every day Unchanged hydroxyurea (hydroxyurea 500 mg oral capsule) 3 cap by mouth Every Fri / / Fri / / Fri and Friday EXCEPT FOR SUNDAYS Unchanged magnesium oxide (magnesium oxide 400 mg oral tablet) 2 tab(s) by mouth Once a day Unchanged metoprolol (Metoprolol Succinate ER 100 mg oral TABLET extended release) 1 tab(s) by mouth Once a day Unchanged multivitamin with minerals (Vitamin D with Minerals oral tablet, chewable) 1 tab(s) Chewed Once a day Unchanged omeprazole (omeprazole 40 mg oral delayed release capsule) 1 cap by mouth Once a day TAKE 1 CAPSULE BY MOUTH ONCE DAILY Unchanged ondansetron (ondansetron 8 mg oral tablet) 1 tab(s) by mouth Once as needed for Nausea, mild Unchanged rivaroxaban (Xarelto 10 mg oral tablet) 1 tab(s) by mouth Daily at bedtime Unchanged zolpidem (zolpidem 10 mg oral tablet) 1 tab(s) by mouth Daily at bedtime as needed for as needed for sleep Pharmacy Information [facility]/pharmacy #[id number]: [address] [place], [place] [id number] [phone] Please take this list to your next doctor s visit. Bring all medications you take, including over the counter medications, herbals and other supplements with you to your doctor s visit. Patients and families are reminded to discard old lists and to update any records with all medication providers or retail pharmacies. Medication Leaflets acetaminophen and oxycodone (a SEET a MIN oh fen and OX i KOE done) Endocet 10/325, Endocet 2.5/325, Endocet 5/325, Endocet 7.5/325, Nalocet, Percocet, Prolate What is the most important information I should know about acetaminophen and oxycodone? MISUSE OF OPIOID MEDICINE CAN CAUSE ADDICTION, [...] blistering and peeling. What is acetaminophen and oxycodone? Acetaminophen and oxycodone is a combination medicine used to relieve moderate to severe pain. Acetaminophen and oxycodone contains an opioide medicine and may be habit-forming. Acetaminophen and oxycodone may also be used for purposes not listed in this medication guide. What should I discuss with my healthcare provider before taking acetaminophen and oxycodone? You should not use this medicine if you are allergic to acetaminophen or oxycodone, or if you have: severe asthma or breathing problems; or a blockage in your stomach or intestines. Tell your doctor if you have ever had: breathing problems, sleep apnea; liver disease; a drug or alcohol addiction; [...] baby. How should I take acetaminophen and oxycodone? Follow all directions on your prescription label. Never take this medicine in larger amounts, or for longer than prescribed. An overdose can damage your liver or cause . Tell your doctor if you feel an increased urge to use more of this medicine. Never share opioid medicine with another person, especially someone with a history of drug abuse or addiction. MISUSE CAN CAUSE ADDICTION, OVERDOSE, OR . Keep the medicine in a place where others cannot get to it. Selling or giving away opioid medicine is against the law. Measure liquid [...] should I avoid while taking acetaminophen and oxycodone? Avoid driving or operating machinery until you [...] the possible side effects of acetaminophen and oxycodone? Get emergency medical help if you have [...] light-headed feeling, like you might pass out; weakness, tiredness, fever, unusual bruising or bleeding; confusion, unusual thoughts or behavior; problems with urination; liver problems--nausea, upper stomach pain, tiredness, loss of appetite, dark urine, carlene-colored stools, jaundice (yellowing of the skin or eyes); low cortisol levels-- nausea, vomiting, loss of appetite, dizziness, worsening tiredness or weakness; or high levels of serotonin in the body--agitation, hallucinations, fever, sweating, shivering, fast heart rate, muscle stiffness, twitching, loss of coordination, nausea, vomiting, diarrhea. Serious breathing problems may be more likely in older adults and in those who are debilitated or have wasting syndrome or chronic breathing disorders. Common side effects include: dizziness, drowsiness, feeling tired; feelings of extreme happiness or sadness; nausea, vomiting, stomach pain; constipation; or headache. This is not a complete list of side effects and others may occur. Call your doctor for medical advice about side effects. You may report side effects to FDA at 3-412-SBK-2124. What other drugs will affect acetaminophen and oxycodone? You may have breathing problems or withdrawal [...] complete. Other drugs may affect acetaminophen and oxycodone, including prescription and kibl-bgs-daionvv medicines, vitamins, and herbal products. Not all possible interactions are listed here. Where can I get more information? Your doctor or pharmacist can provide more information about acetaminophen and oxycodone. Remember, keep this and all other medicines out of the reach of children, never share your medicines with others, and use this medication only for the indication prescribed. Every effort has been made to ensure that the information provided by [employer]') is accurate, up-to-date, and complete, but no guarantee is made to that effect. Drug information contained herein may be time sensitive. [employer] information has been compiled for use by healthcare practitioners and consumers in the [place] and therefore [employer] does not warrant that uses outside of the [place] are appropriate, unless specifically indicated otherwise. [employer] drug information does not endorse drugs, diagnose patients or recommend therapy. [employer] drug information is an informational resource designed [...] effective or appropriate for any given patient. [employer] does not assume any responsibility for any aspect of healthcare administered with the aid of information [employer] provides. The information contained herein is not intended to cover all possible uses, directions, precautions, warnings, drug interactions, allergic reactions, or adverse effects. If you have questions about the drugs you are taking, check with your doctor, nurse or pharmacist. Copyright 6765-1497 [employer] Version: 22.. Revision Date: 11/14/2022. Education Materials Intramedullary Nailing of Hip Fracture, Care After This sheet gives you information about how to care for yourself after your procedure. Your health care provider may also give you more specific instructions. If you have problems or questions, contact your health care provider. What can I expect after the surgery? After the procedure, it is common to have these symptoms in your hip area: Pain. Swelling. Tenderness. Stiffness and weakness. Follow these instructions at home: Medicines Take ixxz-qep-fpoerzc and prescription medicines only as told by your health care provider. Ask your health care provider if the medicine prescribed to you: ? Requires you to avoid driving or using heavy machinery. ? Can cause constipation. You may need to take actions to prevent or treat constipation, such as: ? Drink enough fluid to keep your urine pale yellow. ? Take nqhb-hye-yzbetis or prescription medicines. ? Eat foods that are high in fiber, such as beans, whole grains, and fresh fruits and vegetables. ? Limit foods that are high in fat and processed sugars, such as fried or sweet foods. Bathing Do not take baths, swim, or use a hot tub until your health care provider approves. Ask your health care provider if you may take showers. You may only be allowed to take sponge baths. Keep your bandage (dressing) dry if you shower or take a sponge bath. Incision care Follow instructions from your health care provider about how to take care of your incision. Make sure you: ? Wash your hands with soap and water before and after you change your dressing. If soap and water are not available, use hand scanning tech. ? Change your dressing as told by your health care provider. ? Leave stitches (sutures), skin glue, or adhesive strips in place. These skin closures may need to stay in place for 2 weeks or longer. If adhesive strip edges start to loosen and curl up, you may trim the loose edges. Do not remove adhesive strips completely unless your health care provider tells you to do that. Check your incision area every day for signs of infection. Check for: ? More redness, swelling, or pain. ? Fluid or blood. ? Warmth. ? Pus or a bad smell. Managing pain, stiffness, and swelling If directed, put ice on the affected area. ? Put ice in a plastic bag. ? Place a towel between your skin and the bag. ? Leave the ice on for 20 minutes, 2 3 times a day. Move your toes often to reduce stiffness and swelling. Raise (elevate) the injured area above the level of your heart while you are lying down. Activity Rest as told by your health care provider. Use your crutches or walker as told by your health care provider. Your health care provider will let you know how much weight you can put on your leg. Your health care provider will do X-rays to check bone healing. As healing progresses, you may be allowed to put more weight on your leg. Avoid sitting for a long time without moving. Get up to take short walks every 1 2 hours. This is important to improve blood flow and breathing. Ask for help if you feel weak or unsteady. Keep all your physical therapy appointments. Do exercises as told by your health care provider. These exercises will prevent weakness and stiffness in your hip. Return to your normal activities as told by your health care provider. Ask your health care provider what activities are safe for you. It may take several months to heal completely. Ask your health care provider when it is safe to drive. General instructions Do not use any products that contain nicotine or tobacco, such as cigarettes, e-cigarettes, and chewing tobacco. These can delay bone healing after surgery. If you need help quitting, ask your health care provider. Take steps to prevent falls at home, such as removing throw rugs and tripping hazards. Keep all follow-up visits as told by your health care provider. This is important. Contact a health care provider if: You are not getting relief from your pain medicine. You have more redness, swelling, or pain around your incision. You have fluid or blood coming from your incision. Your incision feels warm to the touch. You have pus or a bad smell coming from your incision. Get help right away if: You have a fever and chills. You have chest pain or trouble breathing. Your incision breaks open. You have severe pain that does not get better with medicine. Summary After your surgery, it is normal to have some pain, swelling, and tenderness. Take pdmx-ido-ructnjm and prescription medicines only as told by your health care provider. Follow instructions from your health care provider about how to take care of your incision. Check your incision area every day for signs of infection. Return to your normal activities as told by your health care provider. Ask your health care provider what activities are safe for you. It may take several months to heal completely. Keep all follow-up visits as told by your health care provider. This information is not intended to replace advice given to you by your health care provider. Make sure you discuss any questions you have with your health care provider. Document Released: 02/01/2019 Document Revised: 02/01/2019 Document Reviewed: 02/01/2019 Elsevier Patient Education 2020 [employer] Additional Information VACCINATE! IT SAVES LIVES! Members of the community who have not yet received the COVID-19 vaccine and would like to receive it can visit one of [facility] vaccine clinics. There are many vaccine clinic locations within the [facility]. For locations and available times, please visit https://gettheshot.coronavirus.[place].gov/. It is important to note that some COVID mobile vaccine clinics are held outdoors and may be canceled in rainy or stormy conditions. To learn more about pediatric vaccinations (ages 5-11), we invite you to visit the [facility] webpage. [email or web address].org/pa [email or web address]-[email or web address]-Freque gorj-[email or web address].[email or web address] To learn more about the COVID-19 vaccine, we invite you to visit the CDC website for a list of frequently asked questions.https://www.cdc.gov/cor onavirus/2019-ncov/vaccines/faq.h tml [facility] Patient Portal Access Instructions: Stay connected with your healthcare team and access your personal medical information anytime with the [facility] Patient Portal. Please follow the directions below to create your [facility] account: 1.Access the email account you provided upon registration to the hospital/physician office.2.Look for an invitation email from [facility].3.Open the email and access the invitation link: Accept Invitation to [facility].4.Fill in the required morales to create your account. To access your account, visit [email or web address]. Click the blue button labeled Access Patient Portal and then log in with the username and password that you created in the steps above. You will be able to view your test results, lab results, a summary of your visits, upcoming appointments and more. There is also a convenient messaging option where you can send secure messages to your provider. In addition, you will have the ability to download any documents or summaries to your computer and/or send the information securely to a physician. Remember that your healthcare information is confidential, so carefully consider who you will allow to register on the [facility] Patient Portal for access to your information. You can also access the [facility] Patient Portal on the [facility] domenic. Simply click on Patient Portal and then log into your account. If you would like to receive a full copy of your medical records, please contact the [facility] Medical Records Department by calling [phone], Friday through Friday between 8 a.m. and 4:30 p.m. HOW TO SAFELY DISPOSE OF PRESCRIPTION MEDICATIONS [...] Call your local pharmacy or go to [email or web address] to find one close to you.3.Make use of household items: Use cat litter or old coffee grounds to dispose medications if other options are not available. Mix your drugs with these household products, seal them in an airtight container and throw it into the garbage. Call [facility]: [phone] to be sure your drugs can be disposed of in this way. Some medicines may require a different approach.4.Never flush your medications down the toilet. IF YOU HAVE BEEN PRESCRIBED AN OPIOID FOR PAIN If you have been prescribed [...] have withdrawal symptoms when a medication is stopped, can develop within a few days. KNOW [...] children, family, friends and visitors). The last page of this document has been signed and retained as a CHART COPY. Signatures Patient Education Materials Intramedullary Nailing of Hip Fracture, Care After Medication Leaflets acetaminophen and oxycodone My discharge plan and instructions have been reviewed and explained to me and I,ADINA DAVID understand my current condition and have read and understand these discharge instructions. I have received a written copy of the plan/instructions. If I have questions, I am aware that I should contact my doctor. 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 05-26-2024 Note Discharge Instructions Thank you for allowing [facility] to assist you with your healthcare needs. The following is important discharge information regarding your hospital visit. Your Care Team ELIJAH OROZCO MD Your Diagnosis Intertrochanteric fracture of right hip What to do next Instructions From Your Doctor Please take your medications as prescribed and follow-up with your primary care physician as well as orthopedics after discharge. Get your blood work done to follow-up your hemoglobin. If your symptoms worsen, call your primary care physician or go to nearest ER. Follow Up Appointments Follow Up with ELIJAH OROZCO MD When:Within 1-2 days Where:[facility] [address] [place] [address]- Additional Information: Please call the office to schedule a hospital follow up appointment. Follow Up with MATT RAMSEY DO When:In 2 weeks Where:[address] [facility]/[place] [address]- [phone] Additional Information: Call office to verify/schedule appointment as soon as possible for post-op visit 2 weeks from discharge. The Following Activity and Diet Have Been Ordered for You Discharge Activity - Ordered -- Activity As Tolerated, Weight bearing as tolerated to operative extremity., 05/23/24 14:34:00 EST Transfer of Care Activity - Ordered -- As instructed by therapy, 05/26/24 12:05:00 EST Transfer of Care Diet - Ordered -- Type of Diet: Regular Diet, 05/26/24 12:05:00 EST The Following Equipment Has Been Ordered for You Discharge Home Equipment Discharge Wound Care - Ordered -- Surgical dressing to remain in place for 5-7 days. Reapply dry sterile dressing daily if needed after. Ok to shower. Do not soak/suberge surgical site in water for extended periods of time., 05/23/24 14:34:00 EST The Following Treatments Have Been Ordered for You Discharge Labs Transfer of Care Labwork - Ordered -- CBC, Anemia, follow-up within: 3-5 days, Results Notify to: ELIJAH OROZCO MD, 05/26/24 12:05:00 EST Discharge Radiology No qualifying data available. Other Therapies Transfer of Care OT - Ordered -- Reason for therapy: Hip fracture, 05/26/24 12:05:00 EST Transfer of Care PT - Ordered -- Reason for therapy: Hip fracture, 05/26/24 12:05:00 EST Post Acute Orders Transfer of Care Admission Level of Care - Ordered -- Level of Care SNF, 05/26/24 12:05:10 EST Transfer of Care Code Status - Ordered -- Full Code, Constant Order Transfer of Care Communication Order - Ordered -- Expect less than 30 day stay., 05/26/24 12:05:10 EST Transfer of Care CPAP as at home - Ordered Transfer of Care Labwork - Ordered -- CBC, Anemia, follow-up within: 3-5 days, Results Notify to: ELIJAH OROZCO MD, 05/26/24 12:05:00 EST Transfer of Care Orders Electronically Signed By - Ordered -- 05/26/24 12:05:00 EST, JONEL MATIAS MD Transfer of Care Prognosis - Ordered -- Fair, Patient Aware: Yes Transfer of Care Rehab Potential - Ordered -- Rehab potential fair, 05/26/24 12:05:10 EST Someone Will Contact You Regarding These Home Health Referrals No home referrals have been ordered for you. No one will call you. Allergies doxycycline penicillin Medications Please ask your primary doctor or pharmacist before taking any other medication not listed, including over the counter drugs, herbal medications, vitamins and or supplements as they may interact with your home medications. What How Much When Why Instructions Last Dose Unchanged acetaminophen-oxyCODONE (Percocet 5 mg-325 mg oral tablet) 1 tab(s) by mouth Every 4 hours as needed for as needed for pain Intertrochanteric fracture of right hip Duration: 7 Days Pickup at [facility]/pharmacy #[id number] Unchanged albuterol (albuterol MDI (90 mcg/ inh) CFC free inhalation aerosol) 2 inh by inhalation Every 6 hours as needed for as needed for wheezing Duration: 30 Days Unchanged albuterol (albuterol MDI (90 mcg/ inh) CFC free inhalation aerosol) 1 puff(s) by inhalation Every 4 hours as needed for as needed for shortness of breath or wheezing Unchanged ascorbic acid (Vitamin C) 2,000 Milligram by mouth Once a day Unchanged budesonide/ formoterol/ glycopyrrolate (Breztri Aerosphere 160 mcg-9 mcg-4.8 mcg/ inh inhalation aerosol) 2 puff(s) by inhalation Two (2) times a day rinse mouth and throat after use Unchanged calcitriol (calcitriol 0.25 mcg oral capsule) 50 Microgram by mouth Once a day Unchanged calcium carbonate (calcium (as carbonate) 600 mg oral tablet) 1 tab(s) by mouth Once a day Unchanged cyclobenzaprine (cyclobenzaprine 10 mg oral tablet) 1 tab(s) by mouth Three (3) times a day as needed for Muscle spasm TAKE 1 TABLET BY MOUTH THREE TIMES DAILY Unchanged escitalopram (escitalopram 5 mg oral tablet) 1 tab(s) by mouth Once a day Unchanged evolocumab (Repatha Prefilled Syringe) Once a month Unchanged evolocumab (Repatha SureClick 140 mg/ mL subcutaneous solution) 140 Milligram Subcutaneous Once a month rotate injection sites Unchanged ferrous sulfate (ferrous sulfate 200 mg (65 mg elemental iron) oral tablet) 1 tab(s) by mouth Every day Unchanged fluticasone/ umeclidinium/ vilanterol (Trelegy Ellipta 200 mcg-62.5 mcg-25 mcg/ inh inhalation powder) 1 puff(s) by inhalation Once a day as needed for Shortness of breath or wheezing at the same time every day Unchanged hydroxyurea (hydroxyurea 500 mg oral capsule) 3 cap by mouth Every Fri / / Fri / / Fri and Friday EXCEPT FOR SUNDAYS Unchanged magnesium oxide (magnesium oxide 400 mg oral tablet) 2 tab(s) by mouth Once a day Unchanged metoprolol (Metoprolol Succinate ER 100 mg oral TABLET extended release) 1 tab(s) by mouth Once a day Unchanged multivitamin with minerals (Vitamin D with Minerals oral tablet, chewable) 1 tab(s) Chewed Once a day Unchanged omeprazole (omeprazole 40 mg oral delayed release capsule) 1 cap by mouth Once a day TAKE 1 CAPSULE BY MOUTH ONCE DAILY Unchanged ondansetron (ondansetron 8 mg oral tablet) 1 tab(s) by mouth Once as needed for Nausea, mild Unchanged rivaroxaban (Xarelto 10 mg oral tablet) 1 tab(s) by mouth Daily at bedtime Unchanged zolpidem (zolpidem 10 mg oral tablet) 1 tab(s) by mouth Daily at bedtime as needed for as needed for sleep Pharmacy Information [facility]/pharmacy #[id number]: [address] [place], [place] [id number] [phone] Please take this list to your next doctor s visit. Bring all medications you take, including over the counter medications, herbals and other supplements with you to your doctor s visit. Patients and families are reminded to discard old lists and to update any records with all medication providers or retail pharmacies. Additional Information VACCINATE! IT SAVES LIVES! Members of the community who have not yet received the COVID-19 vaccine and would like to receive it can visit one of [facility] vaccine clinics. There are many vaccine clinic locations within the [facility]. For locations and available times, please visit [email or web address].pa io.gov/. It is important to note that some COVID mobile vaccine clinics are held outdoors and may be canceled in rainy or stormy conditions. To learn more about pediatric vaccinations (ages 5-11), we invite you to visit the [facility] webpage. [email or web address] To learn more about the COVID-19 vaccine, we invite you to visit the CDC website for a list of frequently asked questions.https://www.cdc.gov/cor onavirus/2019-ncov/vaccines/faq.h tml [facility] Patient Portal Access Instructions: Stay connected with your healthcare team and access your personal medical information anytime with the [facility] Patient Portal. Please follow the directions below to create your [facility] account: 1.Access the email account you provided upon registration to the hospital/physician office.2.Look for an invitation email from [facility].3.Open the email and access the invitation link: Accept Invitation to [facility].4.Fill in the required morales to create your account. To access your account, visit [email or web address]. Click the blue button labeled Access Patient Portal and then log in with the username and password that you created in the steps above. You will be able to view your test results, lab results, a summary of your visits, upcoming appointments and more. There is also a convenient messaging option where you can send secure messages to your provider. In addition, you will have the ability to download any documents or summaries to your computer and/or send the information securely to a physician. Remember that your healthcare information is confidential, so carefully consider who you will allow to register on the [facility] Patient Portal for access to your information. You can also access the [facility] Patient Portal on the [facility] domenic. Simply click on Patient Portal and then log into your account. If you would like to receive a full copy of your medical records, please contact the [facility] Medical Records Department by calling [phone], Friday through Friday between 8 a.m. and 4:30 p.m. HOW TO SAFELY DISPOSE OF PRESCRIPTION MEDICATIONS [...] Call your local pharmacy or go to http://bit.ly/6N2Yy6i to find one close to you.3.Make use of household items: Use cat litter or old coffee grounds to dispose medications if other options are not available. Mix your drugs with these household products, seal them in an airtight container and throw it into the garbage. Call [facility]: [phone] to be sure your drugs can be disposed of in this way. Some medicines may require a different approach.4.Never flush your medications down the toilet. IF YOU HAVE BEEN PRESCRIBED AN OPIOID FOR PAIN If you have been prescribed [...] have withdrawal symptoms when a medication is stopped, can develop within a few days. KNOW [...] children, family, friends and visitors). The last page of this document has been signed and retained as a CHART COPY. Signatures Patient Education Materials Medication Leaflets My discharge plan and instructions have been reviewed and explained to me and I,ADINA DAVID understand my current condition and have read and understand these discharge instructions. I have received a written copy of the plan/instructions. If I have questions, I am aware that I should contact my doctor. 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 05-26-2024 Orthopaedic surgery Progress note Date of Service 05/26/2024 Chief Complaint Postop day 2 right hip cephalomedullary nail Subjective Patient was examined at bedside this morning was resting comfortably. No acute events overnight. States that he worked with physical therapy yesterday and it went well. Was able to walk a few feet with a walker but states it was painful. States he is feeling slightly better this morning. Denies any numbness or tingling. All questions answered at bedside. Objective Vitals and Measurements T: 36.6 C (Oral) TMIN: 36.6 C (Oral) TMAX: 37.1 C (Axillary) HR: 99 RR: 16 BP: 135/76 SpO2: 96% Intake and Output 7AM Yesterday to 7AM Today Intake and Output (Last 24 hours) Intake Red Blood Cells Amount Transfused 300.00 Oral Intake 1490.00 Supplement Intake 237.00 Output Urine Voided 2100.00 Stool Count 1.00 Urine Count 2.00 Diaper Count 1.00 Total Summary Total Intake 2027.00 Total Output 2100.00 Fluid Balance -73.00 Physical Exam Right lower extremity -Dressing is clean dry and intact without signs of infection -Skin pink and well perfused -Sensation intact to light touch L3-S1 -Gross motor function intact to dorsi/plantarflexion of ankle and toes -DP, TP pulses palpable -Compartments are soft and compressible -No calf tenderness Weight Dosing Weight: 81.8 kg (05/23/24) Dosing Weight: 81.8 kg (05/23/24) Medications Medications (26) Active Scheduled: (11) acetaminophen 325 mg Tablet 650 mg 2 tab(s), Oral, QID albuterol - ipratropium 2.5 mg-0.5 mg/3 mL Inhal Marianela UD 3 mL, Inhalation, TIDRT budesonide 0.5 mg/2 mL Susp UD 0.5 mg 2 mL, Inhalation, BIDRT calcitriol 0.25 mcg Capsule 0.5 mcg 2 cap(s), Oral, qDay calcium carbonate 500 mg Chewable 500 mg 1 tab(s), Chewed, qDay escitalopram 5 mg tablet 5 mg 1 tab(s), Oral, qDay hydroxyurea 500 mg capsule 1,500 mg 3 cap(s), Oral, Fri//Fri//Fri/Fri metoprolol succinate 100 mg ER tablet 100 mg 1 tab(s), Oral, qDay mupirocin 2% Ointment 22 Gram(s) tube 1 domenic, Nostril, each, BID omeprazole [address] capsule 40 mg 1 cap(s), Oral, qDay rivaroxaban 10 mg tablet 10 mg 1 tab(s), Oral, qHS Continuous: (0) PRN: (15) acetaminophen 325 mg Tablet 650 mg 2 tab(s), Oral, q4h acetaminophen-HYDROcodone 325-5 mg tablet 1 tab(s), Oral, q4h Al hydrox/Mg hydrox/simethicone 200-200-20 mg/5 mL Susp UD 30 mL, Oral, q2h albuterol - ipratropium 2.5 mg-0.5 mg/3 mL Inhal Marianela UD 3 mL, Inhalation, q2hRT bisacodyl 5 mg EC tablet 10 mg 2 tab(s), Oral, qDay clonidine 0.1 mg tablet 0.1 mg 1 tab(s), Oral, q6h dextrose 50% Solution Disp syringe 50 mL 12.5 gram(s) 25 mL, IV Push, AsDirected docusate sodium 100 mg Capsule 100 mg 1 cap(s), Oral, BID hydromorphone 1 mg/mL (1mL) INJ 1 mg 1 mL, IV Push, q3h melatonin 3 mg tablet 3 mg 1 tab(s), Oral, qHS morphine 2 mg/mL 1 mL syringe 2 mg 1 mL, IV Push, q3h ondansetron 2 mg/ 1 mL 2 mL INJ 4 mg 2 mL, IV Push, q4h polyethylene glycol 3350 - UD packet 17 gram(s) 15 mL, Oral, qDay tramadol 50 mg Tablet 50 mg 1 tab(s), Oral, q6h zolpidem 5 mg tablet 10 mg 2 tab(s), Oral, qHS Lab Results 05/25 16:12 Hgb: 8.7 L Hct: 26.8 L 05/25 06:48 WBC: 19.9 H Hgb: 7.0 L Hct: 21.1 L Platelet: 192 Glucose Level: 131 H Sodium Level: 140 Potassium Level: 4.4 BUN: 23.0 H Creatinine Lvl (s): 1.33 EKG No qualifying data available. Assessment/Plan Intertrochanteric fracture of right hip Postoperative day # 2 from a right hip cephalomedullary nail -PT/OT: Weightbearing as tolerated right lower extremity -Okay to resume home Xarelto for DVT prophylaxis -Post op Hgb is pending -Maintain dressing, reinforce as needed. May change if oversaturated -Finish 24-hour postop course of antibiotics tomorrow -Medical management per hospitalist service -Case management consulted for discharge planning - Patient is stable from an orthopedic standpoint at this time, orthopedics signing off but is available if needed. Please call with any questions or concerns. -We will discuss with attending, Dr. Guerrero Digitally Signed by JHOAN OSPINA DO on 05/26/2024 06:[address] [facility] 05-25-2024 Note Date of Service 05/25/2024 Chief Complaint Hip pain, Anemia Subjective Patient seen and examined at bedside. He underwent right hip cephalomedullary nailing yesterday. Hemoglobin this morning is 7.0. No acute events ported overnight. Right hip pain is relatively better. Has not been evaluated by PT/OT. Currently on 1 L nasal cannula. Denies worsening shortness of breath or chest pain. Objective Vitals and Measurements T: 37.1 C (Axillary) TMIN: 36.4 C (Oral) TMAX: 37.1 C (Axillary) HR: 101 RR: 18 BP: 150/78 SpO2: 98% Intake and Output 7AM Yesterday to 7AM Today Intake and Output (Last 24 hours) Intake Administration Information 1900.00 Oral Intake 70.00 Output Urine Voided 550.00 Intra-Op EBL 20.00 Stool Count 0.00 Urine Count 0.00 Total Summary Total Intake 1970.00 Total Output 570.00 Fluid Balance 1400.00 Physical Exam General: Patient is not in acute distress Neck: Supple, No JVD HEENT: Normocephalic, atraumatic Cardiac: Regular rate and rhythm, S1 and S2 present, Lungs: Clear to auscultation bilaterally, no wheezes, rhonchi, or rales appreciated Abdomen: Bowel sounds audible, abdomen is soft, nontender, non-distended, no rigidity or rebound tenderness noticed Musculoskeletal: No obvious joint tenderness, right hip dressing clean Extremities: No no lower extremity edema Skin: Warm, well perfused, no bruises Neurological: Alert and orientated x3, grossly nonfocal Weight Dosing Weight: 81.8 kg (05/23/24) Dosing Weight: 81.8 kg (05/23/24) Medications Medications (26) Active Scheduled: (11) acetaminophen 325 mg Tablet 650 mg 2 tab(s), Oral, QID albuterol - ipratropium 2.5 mg-0.5 mg/3 mL Inhal Marianela UD 3 mL, Inhalation, TIDRT budesonide 0.5 mg/2 mL Susp UD 0.5 mg 2 mL, Inhalation, BIDRT calcitriol 0.25 mcg Capsule 0.5 mcg 2 cap(s), Oral, qDay calcium carbonate 500 mg Chewable 500 mg 1 tab(s), Chewed, qDay ceFAZolin syringe 2 gram(s) 20 mL, IV Push (INT), q8hr escitalopram 5 mg tablet 5 mg 1 tab(s), Oral, qDay hydroxyurea 500 mg capsule 1,500 mg 3 cap(s), Oral, Fri//Fri//Fri/Sat metoprolol succinate 100 mg ER tablet 100 mg 1 tab(s), Oral, qDay mupirocin 2% Ointment 22 Gram(s) tube 1 domenic, Nostril, each, BID omeprazole [address] capsule 40 mg 1 cap(s), Oral, qDay Continuous: (0) PRN: (15) acetaminophen 325 mg Tablet 650 mg 2 tab(s), Oral, q4h acetaminophen-HYDROcodone 325-5 mg tablet 1 tab(s), Oral, q4h Al hydrox/Mg hydrox/simethicone 200-200-20 mg/5 mL Susp UD 30 mL, Oral, q2h albuterol - ipratropium 2.5 mg-0.5 mg/3 mL Inhal Marianela UD 3 mL, Inhalation, q2hRT bisacodyl 5 mg EC tablet 10 mg 2 tab(s), Oral, qDay clonidine 0.1 mg tablet 0.1 mg 1 tab(s), Oral, q6h dextrose 50% Solution Disp syringe 50 mL 12.5 gram(s) 25 mL, IV Push, AsDirected docusate sodium 100 mg Capsule 100 mg 1 cap(s), Oral, BID hydromorphone 1 mg/mL (1mL) INJ 1 mg 1 mL, IV Push, q3h melatonin 3 mg tablet 3 mg 1 tab(s), Oral, qHS morphine 2 mg/mL 1 mL syringe 2 mg 1 mL, IV Push, q3h ondansetron 2 mg/ 1 mL 2 mL INJ 4 mg 2 mL, IV Push, q4h polyethylene glycol 3350 - UD packet 17 gram(s) 15 mL, Oral, qDay tramadol 50 mg Tablet 50 mg 1 tab(s), Oral, q6h zolpidem 5 mg tablet 10 mg 2 tab(s), Oral, qHS Lab Results 05/25 06:48 WBC: 19.9 H Hgb: 7.0 L Hct: 21.1 L Platelet: 192 Glucose Level: 131 H Sodium Level: 140 Potassium Level: 4.4 BUN: 23.0 H Creatinine Lvl (s): 1.33 05/24 06:59 WBC: 24.1 H Hgb: 8.8 L Hct: 25.9 L Platelet: 202 Glucose Level: 111 Glucose Level: 111 Sodium Level: 139 Sodium Level: 137 Potassium Level: 4.4 Potassium Level: 4.4 BUN: 23.0 H BUN: 23.0 H Creatinine Lvl (s): 1.32 Creatinine Lvl (s): 1.35 EKG No qualifying data available. Assessment/Plan Fall Right sided comminuted intra-articular hip fracture status post cephalomedullary nailing, 05/24/2024 Acute on chronic anemia, secondary to blood loss from surgery Hematoma of the right hip COPD without exacerbation Hypertension Hyperlipidemia Chronic lymphocytic leukemia Coronary artery disease Obstructive sleep apnea GERD History of DVT/PE with presence of IVC filter A-fib on Xarelto CKD stage III, stable Status post nephrectomy Decreased hearing status post bilateral tympanic membrane tube placement Plan: Patient presented after a fall leading to right hip fracture with surrounding erythema. -- Patient is postop day #1 right hip hemiarthroplasty. Pain is reasonably controlled. Postop hemoglobin is 7.0. Given his underlying CLL and blood loss from surgery, we will give 1 unit PRBC transfusion. If hemoglobin stabilized, resume his home Xarelto from tomorrow. Discontinue IV fluids. Provide incentive spirometry. PT/OT evaluation. Continue aerosol breathing treatment for underlying COPD exacerbation. Watch for oxygen needs. Wean oxygen as tolerated. Renal function stable and at baseline. Continue medications as appropriate. Continue home eyedrops UTI. Monitor cell lines including hemoglobin and WBC count. 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 Questions answered. Level of Care Indication Regular Floor DVT Prophylaxis Other: specify in note Maintenance IVF Indication NA / No maintenance IVF Indwelling Urinary Catheter Indication NA No indwelling catheter Anticipated Timeline of Discharge 24 hours - 48 hours Anticipated DC Disposition SNF Digitally Signed by JONEL MATIAS MD on 05/25/2024 09:[address] [facility] 05-25-2024 Orthopaedic surgery Progress note Date of Service 05/25/2024 Chief Complaint Postop day 1 right hip cephalomedullary nail Subjective Patient was examined at bedside this morning and was resting comfortably. No acute events overnight. States that his hip pain is improved but he does not know how improved it is as he is has not stood up yet. Patient denies any new numbness or tingling. All questions answered at the bedside. Objective Vitals and Measurements T: 36.4 C (Oral) TMIN: 36.4 C (Oral) TMAX: 36.6 C (Oral) HR: 105 RR: 18 BP: 126/70 SpO2: 95% Intake and Output 7AM Yesterday to 7AM Today Intake and Output (Last 24 hours) Intake Administration Information 1900.00 Oral Intake 20.00 Output Urine Voided 550.00 Intra-Op EBL 20.00 Stool Count 0.00 Urine Count 0.00 Total Summary Total Intake 1920.00 Total Output 570.00 Fluid Balance 1350.00 Physical Exam Right lower extremity -Dressing is clean dry and intact without signs of infection -Skin pink and well perfused -Sensation intact to light touch L3-S1 -Gross motor function intact to dorsi/plantarflexion of ankle and toes -DP, TP pulses palpable -Compartments are soft and compressible -No calf tenderness Weight Dosing Weight: 81.8 kg (05/23/24) Dosing Weight: 81.8 kg (05/23/24) Medications Medications (27) Active Scheduled: (11) acetaminophen 325 mg Tablet 650 mg 2 tab(s), Oral, QID albuterol - ipratropium 2.5 mg-0.5 mg/3 mL Inhal Marianela UD 3 mL, Inhalation, TIDRT budesonide 0.5 mg/2 mL Susp UD 0.5 mg 2 mL, Inhalation, BIDRT calcitriol 0.25 mcg Capsule 0.5 mcg 2 cap(s), Oral, qDay calcium carbonate 500 mg Chewable 500 mg 1 tab(s), Chewed, qDay ceFAZolin syringe 2 gram(s) 20 mL, IV Push (INT), q8hr escitalopram 5 mg tablet 5 mg 1 tab(s), Oral, qDay hydroxyurea 500 mg capsule 1,500 mg 3 cap(s), Oral, Fri//Fri//Fri/Sat metoprolol succinate 100 mg ER tablet 100 mg 1 tab(s), Oral, qDay mupirocin 2% Ointment 22 Gram(s) tube 1 domenic, Nostril, each, BID omeprazole [address] capsule 40 mg 1 cap(s), Oral, qDay Continuous: (1) NS (0.9% nacl) 1,000 mL 1,000 mL, Intravenous, 100 mL/hr PRN: (15) acetaminophen 325 mg Tablet 650 mg 2 tab(s), Oral, q4h acetaminophen-HYDROcodone 325-5 mg tablet 1 tab(s), Oral, q4h Al hydrox/Mg hydrox/simethicone 200-200-20 mg/5 mL Susp UD 30 mL, Oral, q2h albuterol - ipratropium 2.5 mg-0.5 mg/3 mL Inhal Marianela UD 3 mL, Inhalation, q2hRT bisacodyl 5 mg EC tablet 10 mg 2 tab(s), Oral, qDay clonidine 0.1 mg tablet 0.1 mg 1 tab(s), Oral, q6h dextrose 50% Solution Disp syringe 50 mL 12.5 gram(s) 25 mL, IV Push, AsDirected docusate sodium 100 mg Capsule 100 mg 1 cap(s), Oral, BID hydromorphone 1 mg/mL (1mL) INJ 1 mg 1 mL, IV Push, q3h melatonin 3 mg tablet 3 mg 1 tab(s), Oral, qHS morphine 2 mg/mL 1 mL syringe 2 mg 1 mL, IV Push, q3h ondansetron 2 mg/ 1 mL 2 mL INJ 4 mg 2 mL, IV Push, q4h polyethylene glycol 3350 - UD packet 17 gram(s) 15 mL, Oral, qDay tramadol 50 mg Tablet 50 mg 1 tab(s), Oral, q6h zolpidem 5 mg tablet 10 mg 2 tab(s), Oral, qHS Lab Results 05/24 06:59 WBC: 24.1 H Hgb: 8.8 L Hct: 25.9 L Platelet: 202 Glucose Level: 111 Glucose Level: 111 Sodium Level: 139 Sodium Level: 137 Potassium Level: 4.4 Potassium Level: 4.4 BUN: 23.0 H BUN: 23.0 H Creatinine Lvl (s): 1.32 Creatinine Lvl (s): 1.35 EKG No qualifying data available. Assessment/Plan Intertrochanteric fracture of right hip Postoperative day # 1 from a right hip cephalomedullary nail -PT/OT: Weightbearing as tolerated right lower extremity -Okay to resume home Xarelto for DVT prophylaxis -Post op Hgb is pending -Maintain dressing, reinforce as needed. May change if oversaturated -Finish 24-hour postop course of antibiotics today -Medical management per hospitalist service -Case management consulted for discharge planning -We will discuss with attending, Dr. Blood Digitally Signed by JHOAN OSPINA DO on 05/25/2024 05:[address] [facility] 05-25-2024 Note Date of Service 05/25/2024 Chief Complaint Hip pain, Anemia Subjective Patient seen and examined at bedside. He underwent right hip cephalomedullary nailing yesterday. Hemoglobin this morning is 7.0. No acute events ported overnight. Right hip pain is relatively better. Has not been evaluated by PT/OT. Currently on 1 L nasal cannula. Denies worsening shortness of breath or chest pain. Objective Vitals and Measurements T: 37.1 C (Axillary) TMIN: 36.4 C (Oral) TMAX: 37.1 C (Axillary) HR: 101 RR: 18 BP: 150/78 SpO2: 98% Intake and Output 7AM Yesterday to 7AM Today Intake and Output (Last 24 hours) Intake Administration Information 1900.00 Oral Intake 70.00 Output Urine Voided 550.00 Intra-Op EBL 20.00 Stool Count 0.00 Urine Count 0.00 Total Summary Total Intake 1970.00 Total Output 570.00 Fluid Balance 1400.00 Physical Exam General: Patient is not in acute distress Neck: Supple, No JVD HEENT: Normocephalic, atraumatic Cardiac: Regular rate and rhythm, S1 and S2 present, Lungs: Clear to auscultation bilaterally, no wheezes, rhonchi, or rales appreciated Abdomen: Bowel sounds audible, abdomen is soft, nontender, non-distended, no rigidity or rebound tenderness noticed Musculoskeletal: No obvious joint tenderness, right hip dressing clean Extremities: No no lower extremity edema Skin: Warm, well perfused, no bruises Neurological: Alert and orientated x3, grossly nonfocal Weight Dosing Weight: 81.8 kg (05/23/24) Dosing Weight: 81.8 kg (05/23/24) Medications Medications (26) Active Scheduled: (11) acetaminophen 325 mg Tablet 650 mg 2 tab(s), Oral, QID albuterol - ipratropium 2.5 mg-0.5 mg/3 mL Inhal Marianela UD 3 mL, Inhalation, TIDRT budesonide 0.5 mg/2 mL Susp UD 0.5 mg 2 mL, Inhalation, BIDRT calcitriol 0.25 mcg Capsule 0.5 mcg 2 cap(s), Oral, qDay calcium carbonate 500 mg Chewable 500 mg 1 tab(s), Chewed, qDay ceFAZolin syringe 2 gram(s) 20 mL, IV Push (INT), q8hr escitalopram 5 mg tablet 5 mg 1 tab(s), Oral, qDay hydroxyurea 500 mg capsule 1,500 mg 3 cap(s), Oral, Fri//Fri//Fri/Sat metoprolol succinate 100 mg ER tablet 100 mg 1 tab(s), Oral, qDay mupirocin 2% Ointment 22 Gram(s) tube 1 domenic, Nostril, each, BID omeprazole [address] capsule 40 mg 1 cap(s), Oral, qDay Continuous: (0) PRN: (15) acetaminophen 325 mg Tablet 650 mg 2 tab(s), Oral, q4h acetaminophen-HYDROcodone 325-5 mg tablet 1 tab(s), Oral, q4h Al hydrox/Mg hydrox/simethicone 200-200-20 mg/5 mL Susp UD 30 mL, Oral, q2h albuterol - ipratropium 2.5 mg-0.5 mg/3 mL Inhal Marianela UD 3 mL, Inhalation, q2hRT bisacodyl 5 mg EC tablet 10 mg 2 tab(s), Oral, qDay clonidine 0.1 mg tablet 0.1 mg 1 tab(s), Oral, q6h dextrose 50% Solution Disp syringe 50 mL 12.5 gram(s) 25 mL, IV Push, AsDirected docusate sodium 100 mg Capsule 100 mg 1 cap(s), Oral, BID hydromorphone 1 mg/mL (1mL) INJ 1 mg 1 mL, IV Push, q3h melatonin 3 mg tablet 3 mg 1 tab(s), Oral, qHS morphine 2 mg/mL 1 mL syringe 2 mg 1 mL, IV Push, q3h ondansetron 2 mg/ 1 mL 2 mL INJ 4 mg 2 mL, IV Push, q4h polyethylene glycol 3350 - UD packet 17 gram(s) 15 mL, Oral, qDay tramadol 50 mg Tablet 50 mg 1 tab(s), Oral, q6h zolpidem 5 mg tablet 10 mg 2 tab(s), Oral, qHS Lab Results 05/25 06:48 WBC: 19.9 H Hgb: 7.0 L Hct: 21.1 L Platelet: 192 Glucose Level: 131 H Sodium Level: 140 Potassium Level: 4.4 BUN: 23.0 H Creatinine Lvl (s): 1.33 05/24 06:59 WBC: 24.1 H Hgb: 8.8 L Hct: 25.9 L Platelet: 202 Glucose Level: 111 Glucose Level: 111 Sodium Level: 139 Sodium Level: 137 Potassium Level: 4.4 Potassium Level: 4.4 BUN: 23.0 H BUN: 23.0 H Creatinine Lvl (s): 1.32 Creatinine Lvl (s): 1.35 EKG No qualifying data available. Assessment/Plan Fall Right sided comminuted intra-articular hip fracture status post cephalomedullary nailing, 05/24/2024 Acute on chronic anemia, secondary to blood loss from surgery Hematoma of the right hip COPD without exacerbation Hypertension Hyperlipidemia Chronic lymphocytic leukemia Coronary artery disease Obstructive sleep apnea GERD History of DVT/PE with presence of IVC filter A-fib on Xarelto CKD stage III, stable Status post nephrectomy Decreased hearing status post bilateral tympanic membrane tube placement Plan: Patient presented after a fall leading to right hip fracture with surrounding erythema. -- Patient is postop day #1 right hip hemiarthroplasty. Pain is reasonably controlled. Postop hemoglobin is 7.0. Given his underlying CLL and blood loss from surgery, we will give 1 unit PRBC transfusion. If hemoglobin stabilized, resume his home Xarelto from tomorrow. Discontinue IV fluids. Provide incentive spirometry. PT/OT evaluation. Continue aerosol breathing treatment for underlying COPD exacerbation. Watch for oxygen needs. Wean oxygen as tolerated. Renal function stable and at baseline. Continue medications as appropriate. Continue home eyedrops UTI. Monitor cell lines including hemoglobin and WBC count. 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 Questions answered. Level of Care Indication Regular Floor DVT Prophylaxis Other: specify in note Maintenance IVF Indication NA / No maintenance IVF Indwelling Urinary Catheter Indication NA No indwelling catheter Anticipated Timeline of Discharge 24 hours - 48 hours Anticipated DC Disposition SNF Digitally Signed by JONEL MATIAS MD on 05/25/2024 09:[address] [facility] 05-25-2024 Note Reason for Consultation Admission From: Home Consult Skin Team re: Pressure Staging - Ordered -- 05/23/24 17:52:38 EST Skin Team Findings Vitals and Measurements T: 37.1 C (Axillary) TMIN: 36.4 C (Oral) TMAX: 37.1 C (Axillary) HR: 101 RR: 18 BP: 150/78 SpO2: 98% Pressure Area Details ------Pressure Area------ Sacrum - Pressure Area Description: [place] Sacrum - Pressure Area Drainage: Scant, Serous Sacrum - Pressure Area Dressing Description: Open to air Sacrum - Pressure Area Surrounding Tissue: Erythema Sacrum - Pressure Ulcer Present On Admission: Yes, patient reported it was open before admission and he was applying barrier cream at home. Sacrum - Pressure Ulcer Stage: Stage 2 ------Pressure Area Measurements------ Sacrum - Pressure Area Length: 0.1 cm Sacrum - Pressure Area Width: 0.1 cm Sacrum - Pressure Area Depth: 0.1 cm ------Incision/Wound------ Leg Right Lateral, Upper, Other: x3 sites - Incision, Wound Dressing Assessment: Intact, Drainage present Leg Right Lateral, Upper, Other: x3 sites - Incision, Wound Dressing/Activity: Assessed Leg Right Lateral, Upper, Other: x3 sites - Incision, Wound Dressing: Composite, Hydrocolloid (DuoDERM), Silver Impregnated Dressing (Aquacel Ag) Leg Right Lateral, Upper, Other: x3 sites - Incision, Wound Surrounding Tissue: Normal Leg Right Lateral, Upper, Other: x3 sites - Skin Abnormality Type: Surgical incision Leg Right Lateral, Upper, Other: x3 sites - Wound Associated Pain: With activity, mobilization Leg Right Lateral, Upper, Other: x3 sites - Wound Exudate Amount: Scant Leg Right Lateral, Upper, Other: x3 sites - Wound Exudate Odor: None Leg Right Lateral, Upper, Other: x3 sites - Wound Exudate Type: Sanguineous Leg Right Lateral, Upper, Other: x3 sites - Wound Status: No complications Assessments and Recommendations ------Assessments------ Current Skin/Wound Interventions: Hospital bed, Turn and reposition every 2 hours Present For Wound Observation: Nurse ------Recommendations------ Recommended Skin/Wound Interventions: Seat cushion, Turn and position system, Barrier cream, Turn and reposition every 2 hours, Proposed orders sent to physician Additional Skin Team Comments: Bilateral heels red and blanching, floated off mattress with a pillow after skin assessment. Education Prevention interventions, skin/wound care, reinforce as needed. Digitally Signed by Brea Wilson RN, Skin Team on 05/25/2024 08:[address] [facility] 05-25-2024 Orthopaedic surgery Progress note Date of Service 05/25/2024 Chief Complaint Postop day 1 right hip cephalomedullary nail Subjective Patient was examined at bedside this morning and was resting comfortably. No acute events overnight. States that his hip pain is improved but he does not know how improved it is as he is has not stood up yet. Patient denies any new numbness or tingling. All questions answered at the bedside. Objective Vitals and Measurements T: 36.4 C (Oral) TMIN: 36.4 C (Oral) TMAX: 36.6 C (Oral) HR: 105 RR: 18 BP: 126/70 SpO2: 95% Intake and Output 7AM Yesterday to 7AM Today Intake and Output (Last 24 hours) Intake Administration Information 1900.00 Oral Intake 20.00 Output Urine Voided 550.00 Intra-Op EBL 20.00 Stool Count 0.00 Urine Count 0.00 Total Summary Total Intake 1920.00 Total Output 570.00 Fluid Balance 1350.00 Physical Exam Right lower extremity -Dressing is clean dry and intact without signs of infection -Skin pink and well perfused -Sensation intact to light touch L3-S1 -Gross motor function intact to dorsi/plantarflexion of ankle and toes -DP, TP pulses palpable -Compartments are soft and compressible -No calf tenderness Weight Dosing Weight: 81.8 kg (05/23/24) Dosing Weight: 81.8 kg (05/23/24) Medications Medications (27) Active Scheduled: (11) acetaminophen 325 mg Tablet 650 mg 2 tab(s), Oral, QID albuterol - ipratropium 2.5 mg-0.5 mg/3 mL Inhal Marianela UD 3 mL, Inhalation, TIDRT budesonide 0.5 mg/2 mL Susp UD 0.5 mg 2 mL, Inhalation, BIDRT calcitriol 0.25 mcg Capsule 0.5 mcg 2 cap(s), Oral, qDay calcium carbonate 500 mg Chewable 500 mg 1 tab(s), Chewed, qDay ceFAZolin syringe 2 gram(s) 20 mL, IV Push (INT), q8hr escitalopram 5 mg tablet 5 mg 1 tab(s), Oral, qDay hydroxyurea 500 mg capsule 1,500 mg 3 cap(s), Oral, Fri//Fri//Fri/Sat metoprolol succinate 100 mg ER tablet 100 mg 1 tab(s), Oral, qDay mupirocin 2% Ointment 22 Gram(s) tube 1 domenic, Nostril, each, BID omeprazole [address] capsule 40 mg 1 cap(s), Oral, qDay Continuous: (1) NS (0.9% nacl) 1,000 mL 1,000 mL, Intravenous, 100 mL/hr PRN: (15) acetaminophen 325 mg Tablet 650 mg 2 tab(s), Oral, q4h acetaminophen-HYDROcodone 325-5 mg tablet 1 tab(s), Oral, q4h Al hydrox/Mg hydrox/simethicone 200-200-20 mg/5 mL Susp UD 30 mL, Oral, q2h albuterol - ipratropium 2.5 mg-0.5 mg/3 mL Inhal Marianela UD 3 mL, Inhalation, q2hRT bisacodyl 5 mg EC tablet 10 mg 2 tab(s), Oral, qDay clonidine 0.1 mg tablet 0.1 mg 1 tab(s), Oral, q6h dextrose 50% Solution Disp syringe 50 mL 12.5 gram(s) 25 mL, IV Push, AsDirected docusate sodium 100 mg Capsule 100 mg 1 cap(s), Oral, BID hydromorphone 1 mg/mL (1mL) INJ 1 mg 1 mL, IV Push, q3h melatonin 3 mg tablet 3 mg 1 tab(s), Oral, qHS morphine 2 mg/mL 1 mL syringe 2 mg 1 mL, IV Push, q3h ondansetron 2 mg/ 1 mL 2 mL INJ 4 mg 2 mL, IV Push, q4h polyethylene glycol 3350 - UD packet 17 gram(s) 15 mL, Oral, qDay tramadol 50 mg Tablet 50 mg 1 tab(s), Oral, q6h zolpidem 5 mg tablet 10 mg 2 tab(s), Oral, qHS Lab Results 05/24 06:59 WBC: 24.1 H Hgb: 8.8 L Hct: 25.9 L Platelet: 202 Glucose Level: 111 Glucose Level: 111 Sodium Level: 139 Sodium Level: 137 Potassium Level: 4.4 Potassium Level: 4.4 BUN: 23.0 H BUN: 23.0 H Creatinine Lvl (s): 1.32 Creatinine Lvl (s): 1.35 EKG No qualifying data available. Assessment/Plan Intertrochanteric fracture of right hip Postoperative day # 1 from a right hip cephalomedullary nail -PT/OT: Weightbearing as tolerated right lower extremity -Okay to resume home Xarelto for DVT prophylaxis -Post op Hgb is pending -Maintain dressing, reinforce as needed. May change if oversaturated -Finish 24-hour postop course of antibiotics today -Medical management per hospitalist service -Case management consulted for discharge planning -We will discuss with attending, Dr. Blood Digitally Signed by JHOAN OSPINA DO on 05/25/2024 05:[address] [facility] 05-25-2024 Nurse Progress note Pt stated he does not want to be bothered from 12am-5am through the night. Educated on the importance of being turned while in bed to prevent skin break down and preventing wounds. Charge aware. Digitally Signed by Emilee Stokes LPN on 05/25/2024 12:[address] [facility] 05-24-2024 Anesthesiology Consult note Patient: ADINA DAVID Age: 68 years Sex: Male : 1955 Associated Diagnoses: None Author: АНДРЕЙ MOON MD Postoperative Information Post Operative Info: Post op day: Post Anesthesia Care Unit. Patient location: PACU. Assessment Postanesthesia assessment Vitals: Vital signs from flowsheet : Vital Signs 05/24/2024 16:21 EST Temperature Temporal Artery 36.5 DegC Heart Rate Monitored 80 bpm Respiratory Rate 16 br/min Systolic Blood Pressure Non-Invasive 126 mmHg Diastolic Blood Pressure Non-Invasive 67 mmHg 05/24/2024 15:45 EST Temperature Temporal Artery 36.6 DegC Heart Rate Monitored 82 bpm Respiratory Rate 15 br/min Systolic Blood Pressure Non-Invasive 129 mmHg Diastolic Blood Pressure Non-Invasive 64 mmHg Mean Arterial Pressure (NBP) 82 mmHg 05/24/2024 15:15 EST Heart Rate Monitored 84 bpm Respiratory Rate 12 br/min LOW Systolic Blood Pressure Non-Invasive 124 mmHg Diastolic Blood Pressure Non-Invasive 64 mmHg Mean Arterial Pressure (NBP) 83 mmHg 05/24/2024 15:04 EST Heart Rate Monitored 86 bpm Respiratory Rate 12 br/min LOW Systolic Blood Pressure Non-Invasive 125 mmHg Diastolic Blood Pressure Non-Invasive 65 mmHg Mean Arterial Pressure (NBP) 82 mmHg 05/24/2024 14:48 EST Heart Rate Monitored 87 bpm Respiratory Rate 16 br/min Systolic Blood Pressure Non-Invasive 129 mmHg Diastolic Blood Pressure Non-Invasive 66 mmHg Mean Arterial Pressure (NBP) 84 mmHg 05/24/2024 14:32 EST Heart Rate Monitored 89 bpm Respiratory Rate 16 br/min Systolic Blood Pressure Non-Invasive 128 mmHg Diastolic Blood Pressure Non-Invasive 67 mmHg Mean Arterial Pressure (NBP) 86 mmHg 05/24/2024 14:17 EST Temperature Temporal Artery 36.6 DegC Heart Rate Monitored 90 bpm Respiratory Rate 16 br/min Systolic Blood Pressure Non-Invasive 124 mmHg Diastolic Blood Pressure Non-Invasive 68 mmHg Mean Arterial Pressure (NBP) 85 mmHg 05/24/2024 14:15 EST Respiratory Rate - Anes 0 br/min br/min 05/24/2024 14:11 EST Systolic Blood Pressure Non-Invasive 113 mmHg mmHg Diastolic Blood Pressure Non-Invasive 62 mmHg mmHg 05/24/2024 14:10 EST Heart Rate Monitored 82 bpm bpm Respiratory Rate - Anes 21 br/min br/min 05/24/2024 14:08 EST Systolic Blood Pressure Non-Invasive 102 mmHg mmHg Diastolic Blood Pressure Non-Invasive 57 mmHg mmHg 05/24/2024 14:05 EST Heart Rate Monitored 81 bpm bpm Respiratory Rate - Anes 22 br/min br/min Systolic Blood Pressure Non-Invasive 108 mmHg mmHg Diastolic Blood Pressure Non-Invasive 60 mmHg mmHg 05/24/2024 14:01 EST Systolic Blood Pressure Non-Invasive 117 mmHg mmHg Diastolic Blood Pressure Non-Invasive 62 mmHg mmHg 05/24/2024 14:00 EST Heart Rate Monitored 88 bpm bpm Respiratory Rate - Anes 12 br/min br/min 05/24/2024 13:58 EST Systolic Blood Pressure Non-Invasive 97 mmHg mmHg Diastolic Blood Pressure Non-Invasive 58 mmHg mmHg 05/24/2024 13:55 EST Heart Rate Monitored 93 bpm bpm Respiratory Rate - Anes 12 br/min br/min Systolic Blood Pressure Non-Invasive 113 mmHg mmHg Diastolic Blood Pressure Non-Invasive 67 mmHg mmHg 05/24/2024 13:53 EST Systolic Blood Pressure Non-Invasive 103 mmHg mmHg Diastolic Blood Pressure Non-Invasive 59 mmHg mmHg 05/24/2024 13:50 EST Heart Rate Monitored 93 bpm bpm Respiratory Rate - Anes 12 br/min br/min 05/24/2024 13:49 EST Systolic Blood Pressure Non-Invasive 114 mmHg mmHg Diastolic Blood Pressure Non-Invasive 73 mmHg mmHg 05/24/2024 13:46 EST Systolic Blood Pressure Non-Invasive 87 mmHg mmHg Diastolic Blood Pressure Non-Invasive 56 mmHg mmHg 05/24/2024 13:45 EST Heart Rate Monitored 93 bpm bpm Respiratory Rate - Anes 12 br/min br/min 05/24/2024 13:43 EST Systolic Blood Pressure Non-Invasive 106 mmHg mmHg Diastolic Blood Pressure Non-Invasive 66 mmHg mmHg 05/24/2024 13:40 EST Heart Rate Monitored 96 bpm bpm Respiratory Rate - Anes 12 br/min br/min Systolic Blood Pressure Non-Invasive 87 mmHg mmHg Diastolic Blood Pressure Non-Invasive 59 mmHg mmHg 05/24/2024 13:37 EST Systolic Blood Pressure Non-Invasive 107 mmHg mmHg Diastolic Blood Pressure Non-Invasive 60 mmHg mmHg 05/24/2024 13:35 EST Heart Rate Monitored 102 bpm bpm Respiratory Rate - Anes 12 br/min br/min Systolic Blood Pressure Non-Invasive 123 mmHg mmHg Diastolic Blood Pressure Non-Invasive 65 mmHg mmHg 05/24/2024 13:31 EST Systolic Blood Pressure Non-Invasive 150 mmHg mmHg Diastolic Blood Pressure Non-Invasive 81 mmHg mmHg 05/24/2024 13:30 EST Heart Rate Monitored 107 bpm bpm Respiratory Rate - Anes 12 br/min br/min 05/24/2024 13:29 EST Systolic Blood Pressure Non-Invasive 147 mmHg mmHg Diastolic Blood Pressure Non-Invasive 90 mmHg mmHg 05/24/2024 13:26 EST Systolic Blood Pressure Non-Invasive 129 mmHg mmHg Diastolic Blood Pressure Non-Invasive 75 mmHg mmHg 05/24/2024 13:25 EST Heart Rate Monitored 101 bpm bpm Respiratory Rate - Anes 12 br/min br/min 05/24/2024 13:22 EST Systolic Blood Pressure Non-Invasive 69 mmHg mmHg Diastolic Blood Pressure Non-Invasive 57 mmHg mmHg 05/24/2024 13:20 EST Heart Rate Monitored 100 bpm bpm Respiratory Rate - Anes 14 br/min br/min 05/24/2024 13:19 EST Systolic Blood Pressure Non-Invasive 84 mmHg mmHg Diastolic Blood Pressure Non-Invasive 57 mmHg mmHg 05/24/2024 13:16 EST Systolic Blood Pressure Non-Invasive 108 mmHg mmHg Diastolic Blood Pressure Non-Invasive 68 mmHg mmHg 05/24/2024 13:15 EST Heart Rate Monitored 106 bpm bpm Respiratory Rate - Anes 14 br/min br/min 05/24/2024 13:13 EST Systolic Blood Pressure Non-Invasive 98 mmHg mmHg Diastolic Blood Pressure Non-Invasive 66 mmHg mmHg 05/24/2024 13:10 EST Temperature (Route Not Specified) 36.5 DegC DegC Heart Rate Monitored 96 bpm bpm Respiratory Rate - Anes 14 br/min br/min Systolic Blood Pressure Non-Invasive 76 mmHg mmHg Diastolic Blood Pressure Non-Invasive 57 mmHg mmHg 05/24/2024 13:07 EST Systolic Blood Pressure Non-Invasive 93 mmHg mmHg Diastolic Blood Pressure Non-Invasive 57 mmHg mmHg 05/24/2024 13:05 EST Heart Rate Monitored 102 bpm bpm Respiratory Rate - Anes 14 br/min br/min 05/24/2024 13:04 EST Systolic Blood Pressure Non-Invasive 116 mmHg mmHg Diastolic Blood Pressure Non-Invasive 88 mmHg mmHg 05/24/2024 13:00 EST Heart Rate Monitored 109 bpm bpm Respiratory Rate - Anes 10 br/min br/min Systolic Blood Pressure Non-Invasive 99 mmHg mmHg Diastolic Blood Pressure Non-Invasive 69 mmHg mmHg 05/24/2024 12:57 EST Systolic Blood Pressure Non-Invasive 98 mmHg mmHg Diastolic Blood Pressure Non-Invasive 65 mmHg mmHg 05/24/2024 12:55 EST Heart Rate Monitored 106 bpm bpm Respiratory Rate - Anes 0 br/min br/min Systolic Blood Pressure Non-Invasive 117 mmHg mmHg Diastolic Blood Pressure Non-Invasive 79 mmHg mmHg 05/24/2024 10:37 EST Peripheral Pulse Rate 78 bpm Respiratory Rate 16 br/min 05/24/2024 10:22 EST Peripheral Pulse Rate 78 bpm Respiratory Rate 16 br/min 05/24/2024 9:33 EST Temperature Oral 36.6 DegC Peripheral Pulse Rate 87 bpm Respiratory Rate 18 br/min Systolic Blood Pressure Non-Invasive 145 mmHg HI Diastolic Blood Pressure Non-Invasive 76 mmHg 05/24/2024 8:00 EST Apical Heart Rate Not Done: Not Appropriate at this Time (Not Done) 05/23/2024 21:24 EST Peripheral Pulse Rate 84 bpm Respiratory Rate 18 br/min Systolic Blood Pressure Non-Invasive 160 mmHg HI Diastolic Blood Pressure Non-Invasive 89 mmHg Blood Pressure Method Automatic Blood Pressure Location Right arm Blood Pressure Cuff Size Medium 05/23/2024 17:44 EST Apical Heart Rate 103 bpm HI 05/23/2024 17:42 EST Peripheral Pulse Rate 104 bpm HI Respiratory Rate 18 br/min Systolic Blood Pressure Non-Invasive 152 mmHg HI Diastolic Blood Pressure Non-Invasive 87 mmHg Reason For Taking VItal Signs Routine 05/23/2024 16:19 EST Temperature Oral 37.3 DegC Peripheral Pulse Rate 91 bpm Respiratory Rate 18 br/min Systolic Blood Pressure Non-Invasive 155 mmHg HI Diastolic Blood Pressure Non-Invasive 79 mmHg Reason For Taking VItal Signs Routine 05/23/2024 10:25 EST Temperature Oral Date\Time Correction Peripheral Pulse Rate Date\Time Correction Respiratory Rate Date\Time Correction Systolic Blood Pressure Non-Invasive Date\Time Correction Diastolic Blood Pressure Non-Invasive Date\Time Correction 05/23/2024 9:50 EST Temperature Oral 36.9 DegC (Modified) Peripheral Pulse Rate 93 bpm (Modified) Respiratory Rate 18 br/min (Modified) Systolic Blood Pressure Non-Invasive 145 mmHg HI (Modified) Diastolic Blood Pressure Non-Invasive 86 mmHg (Modified) . Mental status: at preoperative baseline. Respiratory function: respirations are non-labored, Stable. Respiratory support: none. CV function: Stable. Cardiovascular support: none. Pain: Satisfactory. Nausea status: Satisfactory. Postoperative hydration status: within normal limits. Notes: Patient is sufficiently recovered from anesthesia to participate in the evaluation. No follow-up care needed. No complications post-anesthesia.. Digitally Signed by АНДРЕЙ MOON MD on 05/24/2024 04:[address] [facility] 05-24-2024 Pastoral care Progress note Pastoral Care Note Entered On: 05/24/2024 15:38 EST Performed On: 05/24/2024 11:55 EST by Pantera Quintero Pastoral Care Type of Pastoral Visit : Initial visit Spiritual Care Visit Initiated by : Consult/Referral Spiritual Care Reason for Visit : General Spiritual Care Intervention : Patient Out of Room, Left calling card Spiritual Plan of Care : Visit as Requested Pastoral Care Visit Length : 5 minute(s) Pantera Quintero - 05/24/2024 15:37 EST Digitally Signed by Pantera Quintero on 05/24/2024 03:[address] [facility] 05-24-2024 Note System generated consult for a documented pressure injury. The patient is off the unit for surgery. Plan for skin team to follow up another time. Digitally Signed by Brea Wilson RN, Skin Team on 05/24/2024 02:[address] [facility] 05-24-2024 Note Exam Date Time Procedure Performing Provider Status 05/24/24 2:11 PM XR Fluoro 1-2 Hrs Tech Time Estrellita CHICAS DO; Auth (Verified) [id number] ORIGINAL EXAMINATION: DEBI MD - > 1 HR05/24/2024 2:11 pm COMPARISON: None. HISTORY: ORDERING SYSTEM PROVIDED HISTORY: Reason for Exam: rt intertrochanteric hip fx FLUOROSCOPY DOSE AND TYPE: Radiation Exposure Index: Kerma mGy, 16.935 FINDINGS: Intraoperative fluoroscopy utilized for right hip fracture. Images demonstrate interval placement of intramedullary yeimy and fixation screw with improved anatomic alignment. IMPRESSION: Please see procedure note for further detail. Interpreted by: Olivier Chicas DO Preliminary Report By: Olivier Chicas DO Electronically signed By Olivier Chicas DO Dictated Date: 05/24/2024 2:24:07 PM Prelim Date: 05/24/2024 2:25:34 PM Sign Date: 05/24/2024 2:25:34 PM Ordering Provider: [facility]ATT RAM[facility]Y [id number] Orthopaedic surgery Consult note Date of Service 05/23/2024 Reason for Consultation Right intertrochanteric femur fracture Referring Physician ED History of Present Illness Patient is a 68-year-old male with a medical history of nephrectomy for kidney cancer and, CKD stage III, CLL, A-fib on Xarelto, DVT/PE with presence of IVC filter who presents to [facility] after sustaining a ground-level fall on yesterday 05/22 in the evening. Upon talking to the patient, he reports minimal pain right now. He states that when he fell, he fell directly onto his right side. He was unable to ambulate and laid there for a while. He denies hitting his head or loss of consciousness. He denies any other injuries at this time. He denies any numbness or tingling about his right lower extremity. Patient states that he had previous hip fracture surgery of the left hip at [facility] About 10 years ago. Review of Systems Pertinent positives and negative were listed above. All other systems reviewed were negative. Physical Exam Vitals and Measurements T: 36.9 C (Oral) HR: 93 RR: 18 BP: 145/86 SpO2: 99% WT: 81.8 kg Weight Dosing Weight: 81.8 kg (05/23/24) Right lower Extremity: - Skin is intact and well perfused without abrasions. - Shortened and externally rotated - Tenderness to palpation about the hip. No tenderness to palpation about the femur, knee, tib/fib,foot or ankle - ROM of hip limited due to pain. Normal foot/ankle ROM. - Positive logroll - Motor intact distally with GSC, TA, EHL, FHL. - SILT superficial peroneal, deep peroneal, saphenous, sural, and tibial nerves. - Thigh and lower leg compartments are soft and compressible - DP and PT pulses are palpable. Lab Results 05/23 10:16 WBC: 35.2 H Hgb: 10.0 L Hct: 30.3 L Platelet: 239 Glucose Level: 96 Sodium Level: 139 Potassium Level: 4.4 BUN: 35.0 H Creatinine Lvl (s): 1.55 H Imaging Results and Diagnostics X-rays of the right hip and AP pelvis demonstrate a right intratrochanteric femur fracture. There is evidence of previous hardware for an intramedullary nail to the left hip. EKG EC05/23/24: SINUS RHYTHM LEFT ANTERIOR FASCICULAR BLOCK Electronic Signature: VILMA MARTINEZ MD 05/23/2024 11:42:59 Assessment/Plan 1. Right intertrochanteric femur fracture -68year old male presents after ground-level fall. This was a closed, isolated injury. Patient is NV intact. - I explained to the patient the need for surgical intervention to prevent major morbidity and mortality with nonoperative treatment. Patient voiced understanding and was agreeable to proceed. - Will obtain informed consent and plan for right hip cephalomedullary nail 05/24 Dr. Ramsey around noon. - Hold any chemical DVT prophylaxis at this time - Will order SCDs - Pain control - per primary - NWB to right lower extremity - N.P.O at midnight - Ancef on-call to the OR - We will order type and screen preoperatively. Patient's current hemoglobin is 10.0, platelets 239 - Plan discussed with communications attendant attending Dr. Ramsey Procedure/Surgical History Nephrectomy Large bowel PTCA - Percutaneous transluminal coronary angioplasty Stent Medications Inpatient calcium carbonate, 600 mg= 1 tab(s), Oral, qDay cloNIDine, 0.1 mg= 1 tab(s), Oral, q6h, PRN Dextrose 50% IV Push, 12.5 gram(s)= 25 mL, IV Push, AsDirected, PRN Dulcolax Laxative, 10 mg= 2 tab(s), Oral, qDay, PRN DuoNeb, 3 mL, Inhalation, q4hRT, PRN escitalopram, 5 mg= 1 tab(s), Oral, qDay Kefzol, 2 gram(s)= 20 mL, IV Push (INT), PREOP pharm Maalox, 30 mL, Oral, q2h, PRN melatonin, 3 mg= 1 tab(s), Oral, qHS, PRN mupirocin 2% topical ointment, 1 domenic, Nostril, each, BID NS 1,000 mL, 1000 mL, Intravenous omeprazole, 40 mg= 1 cap(s), Oral, qDay Percocet 325/5, 1 tab(s), Oral, q6hr, PRN Senokot S, 1 tab(s), Oral, BID, PRN Tylenol, 650 mg= 2 tab(s), Oral, q4h, PRN Tylenol, 650 mg= 2 tab(s), Oral, q4h, PRN Tylenol, 650 mg= 1 supp, Rectal, q4h, PRN Ultram, 50 mg= 1 tab(s), Oral, q6h, PRN Zofran, 4 mg= 2 mL, IV Push, q4h, PRN zolpidem, 10 mg= 2 tab(s), Oral, qHS, PRN Home albuterol MDI (90 mcg/inh) CFC free inhalation aerosol, 180 mcg= 2 inh, Inhalation, q6h, PRN Breztri Aerosphere 160 mcg-9 mcg-4.8 mcg/inh inhalation aerosol, 2 puff(s), Inhalation, BID calcitriol 0.25 mcg oral capsule, 50 mcg, Oral, qDay calcium (as carbonate) 600 mg oral tablet, 600 mg= 1 tab(s), Oral, qDay cyclobenzaprine 10 mg oral tablet, 10 mg= 1 tab(s), Oral, TID, PRN escitalopram 5 mg oral tablet, 5 mg= 1 tab(s), Oral, qDay hydroxyurea 500 mg oral capsule, 1500 mg= 3 cap(s), Oral, qDay magnesium oxide 400 mg oral tablet, 800 mg= 2 tab(s), Oral, qDay Metoprolol Succinate ER 100 mg oral TABLET extended release, 100 mg= 1 tab(s), Oral, qDay omeprazole 40 mg oral delayed release capsule, 40 mg= 1 cap(s), Oral, qDay Repatha SureClick 140 mg/mL subcutaneous solution, 140 mg, Subcutaneous, qmonth Vitamin C, 2000 mg, Oral, qDay Xarelto 10 mg oral tablet, 10 mg= 1 tab(s), Oral, qHS zolpidem 10 mg oral tablet, 10 mg= 1 tab(s), Oral, qHS, PRN Allergies doxycycline penicillin Social History Alcohol Use: Past., 12/19/2022 Substance Abuse Use: Current. Type: Marijuana., 12/19/2022 Tobacco Nicotine Use: 10 or more cigarettes (1/2 pack or more)/day in last 30 days. Type: Cigarettes., 12/19/2022 Family History Family history is unknown Immunizations No qualifying data available. Digitally Signed by KONSTANTIN DE GUZMAN DO on 05/23/2024 02:[address] [id number] Anesthesiology Consult note Patient: ADINA DAVID Age: 68 years Sex: Male : 1955 Associated Diagnoses: None Author: HOLDEN ALEJANDRO DO Preoperative Information NPO greater than 8 hours food and greater than 2 hours liquid Anesthesia history Patient's history: negative. Health Status Allergies: Allergic Reactions (Selected) Severity Not Documented Doxycycline- No reactions were documented. Penicillin- No reactions were documented., Allergies (2) ActiveSeverityReaction doxycyclineNone Documented penicillinNone Documented Current medications: (Selected) Inpatient Medications Ordered Dextrose 50% IV Push: 12.5 gram(s), 25 mL, IV Push, AsDirected, PRN: Hypoglycemia Dilaudid: 0.5 mg, 0.5 mL, IV Push, q3h, PRN: Pain, scale 7-10 Dulcolax Laxative: 10 mg, 2 tab(s), Oral, qDay, PRN: Constipation DuoNeb 0.5 mg - 2.5 mg/3 mL inhalation soln: 3 mL, Inhalation, TIDRT DuoNeb: 3 mL, Inhalation, q2hRT, PRN: Shortness of breath or wheezing Hydrea: 1,500 mg, 3 cap(s), Oral, Fri//Fri//Fri/Fri Kefzol: 2 gram(s), 20 mL, 240 mL/hr, IV Push (INT), PREOP pharm Maalox: 30 mL, Oral, q2h, PRN: Indigestion NS 1,000 mL: 100 mL/hr, Intravenous Percocet 325/5: 1 tab(s), Oral, q6hr, PRN: Pain, scale 7-10 Pulmicort Respules 0.5 mg/2 mL inhalation suspension: 0.5 mg, 2 mL, Inhalation, BIDRT Senokot S: 1 tab(s), Oral, BID, PRN: Constipation Tums: 500 mg, 1 tab(s), Chewed, qDay Tylenol: 650 mg, 1 supp, Rectal, q4h, PRN: TEMP greater than 38.6 degrees Celsius Tylenol: 650 mg, 2 tab(s), Oral, q4h, PRN: Pain, scale 1-3 Tylenol: 650 mg, 2 tab(s), Oral, q4h, PRN: TEMP greater than 38.6 degrees Celsius Ultram: 50 mg, 1 tab(s), Oral, q6h, PRN: Pain, scale 4-6 Zofran: 4 mg, 2 mL, IV Push, q4h, PRN: Nausea/Vomiting calcitriol: 0.5 mcg, 2 cap(s), Oral, qDay cloNIDine: 0.1 mg, 1 tab(s), Oral, q6h, PRN: Blood pressure control escitalopram: 5 mg, 1 tab(s), Oral, qDay melatonin: 3 mg, 1 tab(s), Oral, qHS, PRN: Sleep metoprolol succinate 100 mg oral TABLET extended release: 100 mg, 1 tab(s), Oral, qDay morphine: 2 mg, 1 mL, IV Push, q3h, PRN: Pain, scale 1-6 mupirocin 2% topical ointment: 1 domenic, Nostril, each, BID omeprazole: 40 mg, 1 cap(s), Oral, qDay zolpidem: 10 mg, 2 tab(s), Oral, qHS, PRN: Sleep Prescriptions Prescribed Percocet 5 mg-325 mg oral tablet: 1 tab(s), Oral, q4h, for 7 day(s), PRN: as needed for pain, 28 tab(s), 0 Refill(s) albuterol MDI (90 mcg/inh) CFC free inhalation aerosol: 180 mcg, 2 inh, Inhalation, q6h, for 30 day(s), PRN: as needed for wheezing, 18 gram(s), 0 Refill(s) Documented Medications Documented Breztri Aerosphere 160 mcg-9 mcg-4.8 mcg/inh inhalation aerosol: 2 puff(s), Inhalation, BID, rinse mouth and throat after use, 10.7 gram(s), 0 Refill(s) Metoprolol Succinate ER 100 mg oral TABLET extended release: 100 mg, 1 tab(s), Oral, qDay Repatha Prefilled Syringe: qmonth, 0 Refill(s) Repatha SureClick 140 mg/mL subcutaneous solution: 140 mg, Subcutaneous, qmonth, rotate injection sites Trelegy Ellipta 200 mcg-62.5 mcg-25 mcg/inh inhalation powder: 1 puff(s), Inhalation, qDay, at the same time every day, PRN: Shortness of breath or wheezing, 0 Refill(s) Vitamin C: 2,000 mg, Oral, qDay, 0 Refill(s) Vitamin D with Minerals oral tablet, chewable: 1 tab(s), Chewed, qDay, 30 tab(s), 0 Refill(s) Xarelto 10 mg oral tablet: 10 mg, 1 tab(s), Oral, qHS, 90 tab(s), 0 Refill(s) albuterol MDI (90 mcg/inh) CFC free inhalation aerosol: 1 puff(s), Inhalation, q4h, PRN: as needed for shortness of breath or wheezing, 6.7 gram(s), 0 Refill(s) calcitriol 0.25 mcg oral capsule: 50 mcg, Oral, qDay, 0 Refill(s) calcium (as carbonate) 600 mg oral tablet: 600 mg, 1 tab(s), Oral, qDay, 0 Refill(s) cyclobenzaprine 10 mg oral tablet: 10 mg, 1 tab(s), Oral, TID, TAKE 1 TABLET BY MOUTH THREE TIMES DAILY, PRN: Muscle spasm escitalopram 5 mg oral tablet: 5 mg, 1 tab(s), Oral, qDay, 0 Refill(s) ferrous sulfate 200 mg (65 mg elemental iron) oral tablet: 200 mg, 1 tab(s), Oral, Daily, 30 tab(s), 0 Refill(s) hydroxyurea 500 mg oral capsule: 1,500 mg, 3 cap(s), Oral, Fri//Fri//Fri/Fri, EXCEPT FOR SUNDAYS magnesium oxide 400 mg oral tablet: 800 mg, 2 tab(s), Oral, qDay omeprazole 40 mg oral delayed release capsule: 40 mg, 1 cap(s), Oral, qDay, TAKE 1 CAPSULE BY MOUTHONCE DAILY ondansetron 8 mg oral tablet: 8 mg, 1 tab(s), Oral, Once, PRN: Nausea, mild, 10 tab(s), 0 Refill(s) zolpidem 10 mg oral tablet: 10 mg, 1 tab(s), Oral, qHS, PRN: as needed for sleep, 0 Refill(s), Medications (27) Active Scheduled: (10) albuterol - ipratropium 2.5 mg-0.5 mg/3 mL Inhal Marianela UD 3 mL, Inhalation, TIDRT budesonide 0.5 mg/2 mL Susp UD 0.5 mg 2 mL, Inhalation, BIDRT calcitriol 0.25 mcg Capsule 0.5 mcg 2 cap(s), Oral, qDay calcium carbonate 500 mg Chewable 500 mg 1 tab(s), Chewed, qDay ceFAZolin syringe 2 gram(s) 20 mL, IV Push (INT), PREOP pharm escitalopram 5 mg tablet 5 mg 1 tab(s), Oral, qDay hydroxyurea 500 mg capsule 1,500 mg 3 cap(s), Oral, Fri//Fri//Fri/Sat metoprolol succinate 100 mg ER tablet 100 mg 1 tab(s), Oral, qDay mupirocin 2% Ointment 22 Gram(s) tube 1 domenic, Nostril, each, BID omeprazole [address] capsule 40 mg 1 cap(s), Oral, qDay Continuous: (1) NS (0.9% nacl) 1,000 mL 1,000 mL, Intravenous, 100 mL/hr PRN: (16) acetaminophen 325 mg Tablet 650 mg 2 tab(s), Oral, q4h acetaminophen 325 mg Tablet 650 mg 2 tab(s), Oral, q4h acetaminophen 650 mg Suppository 650 mg 1 supp, Rectal, q4h acetaminophen-OXYcodone 325 mg-5 mg Tablet 1 tab(s), Oral, q6hr Al hydrox/Mg hydrox/simethicone 200-200-20 mg/5 mL Susp UD 30 mL, Oral, q2h albuterol - ipratropium 2.5 mg-0.5 mg/3 mL Inhal Marianela UD 3 mL, Inhalation, q2hRT bisacodyl 5 mg EC tablet 10 mg 2 tab(s), Oral, qDay clonidine 0.1 mg tablet 0.1 mg 1 tab(s), Oral, q6h dextrose 50% Solution Disp syringe 50 mL 12.5 gram(s) 25 mL, IV Push, AsDirected docusate-senna (Senokot S) 50 mg-8.6 mg Tablet 1 tab(s), Oral, BID HYDROmorphone 0.5 mg/0.5 mL syringe 0.5 mg 0.5 mL, IV Push, q3h melatonin 3 mg tablet 3 mg 1 tab(s), Oral, qHS morphine 2 mg/mL 1 mL syringe 2 mg 1 mL, IV Push, q3h ondansetron 2 mg/ 1 mL 2 mL INJ 4 mg 2 mL, IV Push, q4h tramadol 50 mg Tablet 50 mg 1 tab(s), Oral, q6h zolpidem 5 mg tablet 10 mg 2 tab(s), Oral, qHS Problem list: No problem items selected or recorded., Active Problems (20) DENG (acute kidney injury) AVM (arteriovenous malformation) Rhodes esophagus BPH (benign prostatic hyperplasia) CAD (coronary artery disease) CLL (chronic lymphocytic leukemia) COPD (chronic obstructive pulmonary disease) DVT (deep venous thrombosis) GERD (gastroesophageal reflux disease) HTN (hypertension) Hypercholesterolemia Insomnia Iron deficiency anemia Mood disorder NSTEMI (non-ST elevated myocardial infarction) CIRA (obstructive sleep apnea) Pulmonary embolism Renal cancer Tobacco use Vitamin D deficiency Histories Past Medical History: No active or resolved past medical history items have been selected or recorded. Family History: History is unknown. Procedure history: Stent ([id number]). Comments: 12/19/2022 11:21 MEHUL Kevin coronary Large bowel ([id number]). Comments: 12/19/2022 11:20 MEHUL Kevin resection Nephrectomy ([id number]). Comments: 12/19/2022 11:20 MEHUL Kevin right PTCA - Percutaneous transluminal coronary angioplasty ([id number]). Social History: Social & Psychosocial Habits Alcohol 05/23/2024 Use: Past Substance Abuse 05/23/2024 Use: Current Type: Marijuana Tobacco 05/23/2024 Tobacco Use: 10 or more cigarettes (1/ Type: Cigarettes Physical Examination Vital Signs (last 24 hrs) Last Charted Temp Oral36.6 DegC (MAY 24 09:33) Heart Rate ApicalH 103 bpm (MAY 23 17:44) SBPH 145 mmHg (MAY 24 09:33) DBP76 mmHg (FEB 10 09:33) BMI26.62 (FEB 09 15:38) General: Alert and oriented. Airway: Mallampati classification: II (soft palate, fauces, uvula visible). Dentition Evaluation: Intact. Respiratory: Lungs are clear to auscultation, Respirations are non-labored. Cardiovascular: Normal rate, Regular rhythm. Heart Sounds: Normal. Neurologic: Alert, Oriented. Review / Management Results review: Labs (Last four charted values) WBC H 24.1(B 10)H 29.7(B 09)H 35.2(B 09) Hgb L 8.8(B 10)L 9.3(B 09)L 10.0(B 09) Hct L 25.9(B 10)L 28.3(B 09)L 30.3(B 09) Plt 202(FEB 10)212(FEB 09)239(FEB 09) Na 137(FEB 10)139(FEB 10)138(B 09)139(B 09) K 4.4(FEB 10)4.4(FEB 10)4.3(FEB 09)4.4(FEB 09) CO2 L 21(B 10)L 20(FEB 10)L 21(B 09)22(FEB 09) Cl 107(FEB 10)108(FEB 10)107(FEB 09)105(FEB 09) Cr 1.32(FEB 10)1.35(FEB 10)H 1.51(FEB 09)H 1.55(B 09) BUN H 23.0(FEB 10)H 23.0(FEB 10)H 33.0(FEB 09)H 35.0(FEB 09) Glucose 111(FEB 10)111(FEB 10)99(FEB 09)96(FEB 09) Mg 1.6(FEB 09) Phos 4.5(FEB 09) Ca 8.9(FEB 10)9.1(FEB 10)9.8(FEB 09)9.6(FEB 09) PT 13.2(B 09) INR 1.2(B 09) Total CK 47(B )63(B ) . Documentation reviewed: Current records. Assessment and Plan [place] [employer]esthesiologists (ASA) physical status classification: Class III. Anesthetic Preoperative Plan Premedication: intravenous. Anesthetic technique: General. Induction: intravenously. Maintenance airway: Oral endotracheal tube. Postoperative pain management: Per surgeon. Risks discussed: nausea, vomiting, headache, sore throat, dental injury, hypotension, allergic reaction, serious complications. Informed consent: signed by patient. Notes: Patient seen and evaluated pre-operatively by Anesthesiologist. ASA 3 or greater due to the following comorbidities:DENG, AVN, CAD, COPD, GERD, HTN. Digitally Signed by HOLDEN ALEJANDRO DO on 05/24/2024 11:[address] [facility] [id number] Respiratory therapy Hospital Progress note Respiratory Therapy Evaluation Entered On: 05/24/2024 10:12 EST Performed On: 05/24/2024 10:10 EST by Eveline Pratt Respiratory Therapy Evaluation Breath Sounds (RT) : Diminished due to poor inspiratory effort Cough (RT) : Strong, productive Level of Activity : Ambulatory with assistance Mental Status : Alert, oriented and cooperative Respiratory Therapy Evaluation Score : 7 RT Evaluation Steps : Assessment completed: RR, HR, Auscultation, Cough Respiratory Evaluation Triage Score : (6-10) Freq: TIDRT & Albuterol Q2hRT prn RT Assessment [Frequency/Schedule] : Triage score 6-10, change frequency to TIDRT and Albuterol Q2hRT PRN per protocol Eveline Pratt RTS - 05/24/2024 10:13 EST Pulmonary Status : Chronic pulmonary disease Surgical Status : General surgery Eveline Pratt [facility] [place] - 05/24/2024 10:10 EST Chest X-Ray : Clear/none available/older than 3 days Eveline Pratt RTS - 05/24/2024 10:13 EST Respiratory Pattern (RT) : RR 10-20 BPM, Regular pattern Eveline Pratt RTS - 05/24/2024 10:10 EST Digitally Signed by Eveline Pratt on 05/24/2024 10:[address] [facility] [id number] Orthopaedic surgery Consult note Date of Service 05/23/2024 Reason for Consultation Right intertrochanteric femur fracture Referring Physician ED History of Present Illness Patient is a 68-year-old male with a medical history of nephrectomy for kidney cancer and, CKD stage III, CLL, A-fib on Xarelto, DVT/PE with presence of IVC filter who presents to [facility] after sustaining a ground-level fall on yesterday 05/22 in the evening. Upon talking to the patient, he reports minimal pain right now. He states that when he fell, he fell directly onto his right side. He was unable to ambulate and laid there for a while. He denies hitting his head or loss of consciousness. He denies any other injuries at this time. He denies any numbness or tingling about his right lower extremity. Patient states that he had previous hip fracture surgery of the left hip at [facility] About 10 years ago. Review of Systems Pertinent positives and negative were listed above. All other systems reviewed were negative. Physical Exam Vitals and Measurements T: 36.9 C (Oral) HR: 93 RR: 18 BP: 145/86 SpO2: 99% WT: 81.8 kg Weight Dosing Weight: 81.8 kg (05/23/24) Right lower Extremity: - Skin is intact and well perfused without abrasions. - Shortened and externally rotated - Tenderness to palpation about the hip. No tenderness to palpation about the femur, knee, tib/fib,foot or ankle - ROM of hip limited due to pain. Normal foot/ankle ROM. - Positive logroll - Motor intact distally with GSC, TA, EHL, FHL. - SILT superficial peroneal, deep peroneal, saphenous, sural, and tibial nerves. - Thigh and lower leg compartments are soft and compressible - DP and PT pulses are palpable. Lab Results 05/23 10:16 WBC: 35.2 H Hgb: 10.0 L Hct: 30.3 L Platelet: 239 Glucose Level: 96 Sodium Level: 139 Potassium Level: 4.4 BUN: 35.0 H Creatinine Lvl (s): 1.55 H Imaging Results and Diagnostics X-rays of the right hip and AP pelvis demonstrate a right intratrochanteric femur fracture. There is evidence of previous hardware for an intramedullary nail to the left hip. EKG EC05/23/24: SINUS RHYTHM LEFT ANTERIOR FASCICULAR BLOCK Electronic Signature: VIMLA MARTINEZ MD 05/23/2024 11:42:59 Assessment/Plan 1. Right intertrochanteric femur fracture -68year old male presents after ground-level fall. This was a closed, isolated injury. Patient is NV intact. - I explained to the patient the need for surgical intervention to prevent major morbidity and mortality with nonoperative treatment. Patient voiced understanding and was agreeable to proceed. - Will obtain informed consent and plan for right hip cephalomedullary nail 05/24 Dr. Ramsey around noon. - Hold any chemical DVT prophylaxis at this time - Will order SCDs - Pain control - per primary - NWB to right lower extremity - N.P.O at midnight - Ancef on-call to the OR - We will order type and screen preoperatively. Patient's current hemoglobin is 10.0, platelets 239 - Plan discussed with communications attendant attending Dr. Ramsey Procedure/Surgical History Nephrectomy Large bowel PTCA - Percutaneous transluminal coronary angioplasty Stent Medications Inpatient calcium carbonate, 600 mg= 1 tab(s), Oral, qDay cloNIDine, 0.1 mg= 1 tab(s), Oral, q6h, PRN Dextrose 50% IV Push, 12.5 gram(s)= 25 mL, IV Push, AsDirected, PRN Dulcolax Laxative, 10 mg= 2 tab(s), Oral, qDay, PRN DuoNeb, 3 mL, Inhalation, q4hRT, PRN escitalopram, 5 mg= 1 tab(s), Oral, qDay Kefzol, 2 gram(s)= 20 mL, IV Push (INT), PREOP pharm Maalox, 30 mL, Oral, q2h, PRN melatonin, 3 mg= 1 tab(s), Oral, qHS, PRN mupirocin 2% topical ointment, 1 domenic, Nostril, each, BID NS 1,000 mL, 1000 mL, Intravenous omeprazole, 40 mg= 1 cap(s), Oral, qDay Percocet 325/5, 1 tab(s), Oral, q6hr, PRN Senokot S, 1 tab(s), Oral, BID, PRN Tylenol, 650 mg= 2 tab(s), Oral, q4h, PRN Tylenol, 650 mg= 2 tab(s), Oral, q4h, PRN Tylenol, 650 mg= 1 supp, Rectal, q4h, PRN Ultram, 50 mg= 1 tab(s), Oral, q6h, PRN Zofran, 4 mg= 2 mL, IV Push, q4h, PRN zolpidem, 10 mg= 2 tab(s), Oral, qHS, PRN Home albuterol MDI (90 mcg/inh) CFC free inhalation aerosol, 180 mcg= 2 inh, Inhalation, q6h, PRN Breztri Aerosphere 160 mcg-9 mcg-4.8 mcg/inh inhalation aerosol, 2 puff(s), Inhalation, BID calcitriol 0.25 mcg oral capsule, 50 mcg, Oral, qDay calcium (as carbonate) 600 mg oral tablet, 600 mg= 1 tab(s), Oral, qDay cyclobenzaprine 10 mg oral tablet, 10 mg= 1 tab(s), Oral, TID, PRN escitalopram 5 mg oral tablet, 5 mg= 1 tab(s), Oral, qDay hydroxyurea 500 mg oral capsule, 1500 mg= 3 cap(s), Oral, qDay magnesium oxide 400 mg oral tablet, 800 mg= 2 tab(s), Oral, qDay Metoprolol Succinate ER 100 mg oral TABLET extended release, 100 mg= 1 tab(s), Oral, qDay omeprazole 40 mg oral delayed release capsule, 40 mg= 1 cap(s), Oral, qDay Repatha SureClick 140 mg/mL subcutaneous solution, 140 mg, Subcutaneous, qmonth Vitamin C, 2000 mg, Oral, qDay Xarelto 10 mg oral tablet, 10 mg= 1 tab(s), Oral, qHS zolpidem 10 mg oral tablet, 10 mg= 1 tab(s), Oral, qHS, PRN Allergies doxycycline penicillin Social History Alcohol Use: Past., 12/19/2022 Substance Abuse Use: Current. Type: Marijuana., 12/19/2022 Tobacco Nicotine Use: 10 or more cigarettes (1/2 pack or more)/day in last 30 days. Type: Cigarettes., 12/19/2022 Family History Family history is unknown Immunizations No qualifying data available. Digitally Signed by KONSTANTIN DE GUZMAN DO on 05/23/2024 02:[address] [facility] [id number] Note Date of Service 05/24/2024 Chief Complaint 68 years old male with past medical history significant for chronic lymphocytic leukemia, right upper lobe lung nodule status post biopsy in 2023 reportedly benign, nephrectomy and CKD stage III, COPD, hypertension, hyperlipidemia, coronary artery disease without angina, obstructive sleep apnea, GERD, DVT/PE with presence of IVC filter, A-fib on Xarelto who presented to [facility] after experiencing a fall. Patient had recent hospitalization last month for pneumonia and COPD exacerbation and was discharged home on October 01. On presentation, she was hemodynamically stable. CBC showing chronic leukocytosis, hemoglobin 10.0.BMP showed creatinine 1.55 that is around her baseline. Ethanol level undetectable. Imaging was performed including CT head, CT cervical spine, x-ray hip as well as CT pelvis and patient found to have comminuted right intra-articular hip fracture with surrounding hematoma, large amount of rectal stool with distention and presacral stranding, diverticulosis, increased number of mesenteric and perirectal lymph nodes and a small fat- containing left inguinal hernia. EKG on admission showed sinus rhythm with left anterior fascicular block. Patient admitted under hospital service with orthopedics in consultation. Subjective Patient seen and examined today at bedside. Complains of right hip pain that worsens with movement also complains of mild back pain because of lying straight on bed. Denies any bowel movement. Deniesany nausea/vomiting. Denies chest pain or shortness of breath. Objective Vitals and Measurements T: 37.3 C (Oral) TMIN: 36.9 C (Oral) TMAX: 37.3 C (Oral) HR: 84 RR: 18 BP: 160/89 SpO2: 94% HT: 175.3 cm WT: 81.8 kg BMI: 26.62 Intake and Output 7AM Yesterday to 7AM Today Intake and Output (Last 24 hours) Intake Oral Intake 120.00 Administration Information 1396.67 Output Urine Voided 450.00 Stool Count 0.00 Emesis Count 0.00 Total Summary Total Intake 1516.67 Total Output 450.00 Fluid Balance 1066.67 Physical Exam General: Patient is not in acute distress Neck: Supple, No JVD HEENT: Normocephalic, atraumatic, Cardiac: Regular rate and rhythm, S1 and S2 present, Lungs: Clear to auscultation bilaterally, no wheezes, rhonchi, or rales appreciated Abdomen: Bowel sounds audible, abdomen is soft, nontender, non-distended, Extremities: No lower extremity edema, sensations intact Skin: Warm, well perfused, Neurological: Alert and orientated x3, grossly nonfocal Weight Dosing Weight: 81.8 kg (05/23/24) Dosing Weight: 81.8 kg (05/23/24) Medications Medications (25) Active Scheduled: (8) calcitriol 0.25 mcg Capsule 0.5 mcg 2 cap(s), Oral, qDay calcium carbonate 500 mg Chewable 500 mg 1 tab(s), Chewed, qDay ceFAZolin syringe 2 gram(s) 20 mL, IV Push (INT), PREOP pharm escitalopram 5 mg tablet 5 mg 1 tab(s), Oral, qDay hydroxyurea 500 mg capsule 1,500 mg 3 cap(s), Oral, Fri//Fri//Fri/Fri metoprolol succinate 100 mg ER tablet 100 mg 1 tab(s), Oral, qDay mupirocin 2% Ointment 22 Gram(s) tube 1 domenic, Nostril, each, BID omeprazole [address] capsule 40 mg 1 cap(s), Oral, qDay Continuous: (1) NS (0.9% nacl) 1,000 mL 1,000 mL, Intravenous, 100 mL/hr PRN: (16) acetaminophen 325 mg Tablet 650 mg 2 tab(s), Oral, q4h acetaminophen 325 mg Tablet 650 mg 2 tab(s), Oral, q4h acetaminophen 650 mg Suppository 650 mg 1 supp, Rectal, q4h acetaminophen-OXYcodone 325 mg-5 mg Tablet 1 tab(s), Oral, q6hr Al hydrox/Mg hydrox/simethicone 200-200-20 mg/5 mL Susp UD 30 mL, Oral, q2h albuterol - ipratropium 2.5 mg-0.5 mg/3 mL Inhal Marianela UD 3 mL, Inhalation, q4hRT bisacodyl 5 mg EC tablet 10 mg 2 tab(s), Oral, qDay clonidine 0.1 mg tablet 0.1 mg 1 tab(s), Oral, q6h dextrose 50% Solution Disp syringe 50 mL 12.5 gram(s) 25 mL, IV Push, AsDirected docusate-senna (Senokot S) 50 mg-8.6 mg Tablet 1 tab(s), Oral, BID HYDROmorphone 0.5 mg/0.5 mL syringe 0.5 mg 0.5 mL, IV Push, q3h melatonin 3 mg tablet 3 mg 1 tab(s), Oral, qHS morphine 2 mg/mL 1 mL syringe 2 mg 1 mL, IV Push, q3h ondansetron 2 mg/ 1 mL 2 mL INJ 4 mg 2 mL, IV Push, q4h tramadol 50 mg Tablet 50 mg 1 tab(s), Oral, q6h zolpidem 5 mg tablet 10 mg 2 tab(s), Oral, qHS Lab Results 05/23 17:00 WBC: 29.7 H Hgb: 9.3 L Hct: 28.3 L Platelet: 212 Protime: 13.2 PT International Ratio: 1.2 Glucose Level: 99 Sodium Level: 138 Potassium Level: 4.3 BUN: 33.0 H Creatinine Lvl (s): 1.51 H 05/23 10:16 WBC: 35.2 H Hgb: 10.0 L Hct: 30.3 L Platelet: 239 Glucose Level: 96 Sodium Level: 139 Potassium Level: 4.4 BUN: 35.0 H Creatinine Lvl (s): 1.55 H EKG EKG (ED) - Completed -- 05/23/24 10:02:00 EST, 05/23/24 10:02:00 EST Assessment/Plan Fall Right sided comminuted intra-articular hip fracture Hematoma of the right hip COPD without exacerbation Hypertension Hyperlipidemia Chronic lymphocytic leukemia Chronic anemia Coronary artery disease Obstructive sleep apnea GERD History of DVT/PE A-fib on Xarelto CKD stage III, stable Status post nephrectomy Plan: Patient presented after a fall leading to right hip fracture with surrounding erythema. Denied any syncopal episode or dizziness prior to episode. He was at friend's house. --Orthopedics following. Patient currently n.p.o. for possible surgical intervention Today. Hemoglobin 8.8 does have underlying chronic anemia. Transfuse as needed. Will monitor for now.Did receive Kcentra on admission given patient is on Xarelto given hematoma. -Continue IV fluids until n.p.o. status and surgical intervention. -Appropriate pain control. Does not seem to be in COPD exacerbation. Will continue aerosol breathing treatment. Renal function stable and at baseline. Resume home medications as appropriate. Discussed plan of care with patient at bedside. Questions answered. Level of Care Indication Regular Floor DVT Prophylaxis Suspended for procedure Maintenance IVF Indication NPO Indwelling Urinary Catheter Indication NA No indwelling catheter Anticipated Timeline of Discharge 48 hours Anticipated DC Disposition SNF Digitally Signed by JONEL MATIAS MD on 05/24/2024 08:[address] [facility] [id number] Orthopaedic surgery Consult note Date of Service 05/23/2024 Reason for Consultation Right intertrochanteric femur fracture Referring Physician ED History of Present Illness Patient is a 68-year-old male with a medical history of nephrectomy for kidney cancer and, CKD stage III, CLL, A-fib on Xarelto, DVT/PE with presence of IVC filter who presents [facility] after sustaining a ground-level fall on yesterday 05/22 in the evening. Upon talking to the patient, he reports minimal pain right now. He states that when he fell, he fell directly onto his right side. He was unable to ambulate and laid there for a while. He denies hitting his head or loss of consciousness. He denies any other injuries at this time. He denies any numbness or tingling about his right lower extremity. Patient states that he had previous hip fracture surgery of the left hip at [facility] About 10 years ago. Review of Systems Pertinent positives and negative were listed above. All other systems reviewed were negative. Physical Exam Vitals and Measurements T: 36.9 C (Oral) HR: 93 RR: 18 BP: 145/86 SpO2: 99% WT: 81.8 kg Weight Dosing Weight: 81.8 kg (05/23/24) Right lower Extremity: - Skin is intact and well perfused without abrasions. - Shortened and externally rotated - Tenderness to palpation about the hip. No tenderness to palpation about the femur, knee, tib/fib,foot or ankle - ROM of hip limited due to pain. Normal foot/ankle ROM. - Positive logroll - Motor intact distally with GSC, TA, EHL, FHL. - SILT superficial peroneal, deep peroneal, saphenous, sural, and tibial nerves. - Thigh and lower leg compartments are soft and compressible - DP and PT pulses are palpable. Lab Results 05/23 10:16 WBC: 35.2 H Hgb: 10.0 L Hct: 30.3 L Platelet: 239 Glucose Level: 96 Sodium Level: 139 Potassium Level: 4.4 BUN: 35.0 H Creatinine Lvl (s): 1.55 H Imaging Results and Diagnostics X-rays of the right hip and AP pelvis demonstrate a right intratrochanteric femur fracture. There is evidence of previous hardware for an intramedullary nail to the left hip. EKG EC05/23/24: SINUS RHYTHM LEFT ANTERIOR FASCICULAR BLOCK Electronic Signature: VILMA MARTINEZ MD 05/23/2024 11:42:59 Assessment/Plan 1. Right intertrochanteric femur fracture -68year old male presents after ground-level fall. This was a closed, isolated injury. Patient is NV intact. - I explained to the patient the need for surgical intervention to prevent major morbidity and mortality with nonoperative treatment. Patient voiced understanding and was agreeable to proceed. - Will obtain informed consent and plan for right hip cephalomedullary nail 05/24 Dr. Ramsey around noon. - Hold any chemical DVT prophylaxis at this time - Will order SCDs - Pain control - per primary - NWB to right lower extremity - N.P.O at midnight - Ancef on-call to the OR - We will order type and screen preoperatively. Patient's current hemoglobin is 10.0, platelets 239 - Plan discussed with communications attendant attending Dr. Ramsey Procedure/Surgical History Nephrectomy Large bowel PTCA - Percutaneous transluminal coronary angioplasty Stent Medications Inpatient calcium carbonate, 600 mg= 1 tab(s), Oral, qDay cloNIDine, 0.1 mg= 1 tab(s), Oral, q6h, PRN Dextrose 50% IV Push, 12.5 gram(s)= 25 mL, IV Push, AsDirected, PRN Dulcolax Laxative, 10 mg= 2 tab(s), Oral, qDay, PRN DuoNeb, 3 mL, Inhalation, q4hRT, PRN escitalopram, 5 mg= 1 tab(s), Oral, qDay Kefzol, 2 gram(s)= 20 mL, IV Push (INT), PREOP pharm Maalox, 30 mL, Oral, q2h, PRN melatonin, 3 mg= 1 tab(s), Oral, qHS, PRN mupirocin 2% topical ointment, 1 domenic, Nostril, each, BID NS 1,000 mL, 1000 mL, Intravenous omeprazole, 40 mg= 1 cap(s), Oral, qDay Percocet 325/5, 1 tab(s), Oral, q6hr, PRN Senokot S, 1 tab(s), Oral, BID, PRN Tylenol, 650 mg= 2 tab(s), Oral, q4h, PRN Tylenol, 650 mg= 2 tab(s), Oral, q4h, PRN Tylenol, 650 mg= 1 supp, Rectal, q4h, PRN Ultram, 50 mg= 1 tab(s), Oral, q6h, PRN Zofran, 4 mg= 2 mL, IV Push, q4h, PRN zolpidem, 10 mg= 2 tab(s), Oral, qHS, PRN Home albuterol MDI (90 mcg/inh) CFC free inhalation aerosol, 180 mcg= 2 inh, Inhalation, q6h, PRN Breztri Aerosphere 160 mcg-9 mcg-4.8 mcg/inh inhalation aerosol, 2 puff(s), Inhalation, BID calcitriol 0.25 mcg oral capsule, 50 mcg, Oral, qDay calcium (as carbonate) 600 mg oral tablet, 600 mg= 1 tab(s), Oral, qDay cyclobenzaprine 10 mg oral tablet, 10 mg= 1 tab(s), Oral, TID, PRN escitalopram 5 mg oral tablet, 5 mg= 1 tab(s), Oral, qDay hydroxyurea 500 mg oral capsule, 1500 mg= 3 cap(s), Oral, qDay magnesium oxide 400 mg oral tablet, 800 mg= 2 tab(s), Oral, qDay Metoprolol Succinate ER 100 mg oral TABLET extended release, 100 mg= 1 tab(s), Oral, qDay omeprazole 40 mg oral delayed release capsule, 40 mg= 1 cap(s), Oral, qDay Repatha SureClick 140 mg/mL subcutaneous solution, 140 mg, Subcutaneous, qmonth Vitamin C, 2000 mg, Oral, qDay Xarelto 10 mg oral tablet, 10 mg= 1 tab(s), Oral, qHS zolpidem 10 mg oral tablet, 10 mg= 1 tab(s), Oral, qHS, PRN Allergies doxycycline penicillin Social History Alcohol Use: Past., 12/19/2022 Substance Abuse Use: Current. Type: Marijuana., 12/19/2022 Tobacco Nicotine Use: 10 or more cigarettes (1/2 pack or more)/day in last 30 days. Type: Cigarettes., 12/19/2022 Family History Family history is unknown Immunizations No qualifying data available. Digitally Signed by KONSTANTIN DE GUZMAN DO on 05/23/2024 02:[address] [id number] History and physical note Date of Service May 23, 2024 Chief Complaint Fall History of Present Illness A 68 years old male with past medical history significant for right upper lobe lung nodule status post biopsy in 2023 reportedly benign, nephrectomy and CKD stage III, COPD, hypertension, hyperlipidemia, coronary artery disease without angina, chronic lymphocytic leukemia, obstructive sleep apnea, GERD, DVT/PE with presence of IVC filter, A-fib on Xarelto presented to [place] [facility] after he had a fall at home yesterday afternoon. Readmission documentation-patient is a readmission was just admitted from May 02 to April for sepsis secondary to bacterial pneumonia, COPD exacerbation. Patient stated that he was going upstairs and he fell on the landing hitting his right hip, denied hitting his head, denied passing out, denied feeling dizzy prior to fall. ED course: Vital signs, labs, imaging and EKG personally reviewed Vitally stable on arrival. CBC showed white count of 35,200 with left shift, hemoglobin of 10.0. BMP showed BUN/creatinine 35/1.55 with creatinine likely at baseline with GFR around 40s. Ethanol level below detection limit. CT head without contrast did not show any acute intracranial abnormality but did show new fluid within bilateral mastoid cells, CT cervical spine without contrast did not show any acute abnormality, chest x-ray on admission did not show any acute radiographic findings, x-ray right hip on admission showed comminuted and angulated right intra-articular hip fracture with large rectal stool volume CT pelvis without contrast showed comminuted right intra-articular hip fracture with surrounding hematoma, large amount of rectal stool with distention and presacral stranding, diverticulosis, increased number of mesenteric and perirectal lymph nodes, advanced vascular calcifications, small fat-containing left inguinal hernia. EKG on admission shows sinus rhythm with left anterior fascicular block. Review of Systems Review of systems are negative except mentioned in HPI Physical Exam Vitals and Measurements T: 36.9 C (Oral) HR: 93 RR: 18 BP: 145/86 SpO2: 99% WT: 81.8 kg Weight Dosing Weight: 81.8 kg (05/23/24) General Appearance: Appears to be stable and in no acute distress Head: Atraumatic and normocephalic EENT: EOMI, PERRLA, no oropharyngeal erythema, no tonsillar exudates, no conjunctival injection. sclera anicteric. Neck: No thyromegaly, no cervical lymphadenopathy, trachea midline Cardiac: S1 and S2 normal. RRR. No murmurs, rubs, or gallops. No JVD. No hepatojugular reflex. Lungs: Good air entry bilaterally. No increased work for breathing. No wheezes, rhonchi, or rales. Abdomen: Soft, nontender, nondistended. Normoactive bowel sounds. No rebound or guarding. Negative Natarajan's sign. No hepatosplenomegaly. Musculoskeletal: Full range of motion upper and lower extremities. No CVA tenderness. Extremities: No lower extremity pitting edema. 2+ radial and pedal pulses bilaterally. Neurological: No gross motor deficits Skin: No abrasions, scars, or hematomas on visible skin. No cyanosis. No purulent discharge. Psychiatric: Alert and oriented, well groomed, euthymic. cooperative Lab Results 05/23 10:16 WBC: 35.2 H Hgb: 10.0 L Hct: 30.3 L Platelet: 239 Glucose Level: 96 Sodium Level: 139 Potassium Level: 4.4 BUN: 35.0 H Creatinine Lvl (s): 1.55 H WBC: 35.2 10^3/mcL High (05/23/24 10:16:00) RBC: 2.24 10^6/mcL Low (05/23/24 10:16:00) Hgb: 10 G/dL Low (05/23/24 10:16:00) Hct: 30.3 % Low (05/23/24 10:16:00) MCV: 135.1 fL High (05/23/24 10:16:00) MCH: 44.4 pg High (05/23/24 10:16:00) MCHC: 32.8 G/dL (05/23/24 10:16:00) RDW: 16.9 % High (05/23/24 10:16:00) Platelet: 239 10^3/mcL (05/23/24 10:16:00) MPV: 7 fL (05/23/24 10:16:00) Monocyte Distribution Width: See Comment (05/23/24 10:16:00) Neutrophil %, Manual: 10 % Low (05/23/24 10:16:00) Lymphocyte %, Manual: 90 % High (05/23/24 10:16:00) Monocyte %, Manual: 0 % Low (05/23/24 10:16:00) Eosinophil %, Manual: 0 % (05/23/24 10:16:00) Basophil %, Manual: 0 % (05/23/24 10:16:00) Bands: 2 % (05/02/24 00:55:00) Nucleated RBC: 0 /100 WBC (05/23/24 10:16:00) Neutrophil, Abs Manual: 3.5 10^3/mcL (05/23/24 10:16:00) Lymphocyte, Abs Manual: 31.7 10^3/mcL High (05/23/24 10:16:00) Monocyte, Abs Manual: 0 10^3/mcL Low (05/23/24 10:16:00) Eosinophil, Abs Manual: 0 10^3/mcL (05/23/24 10:16:00) Basophil, Abs Manual: 0 10^3/mcL (05/23/24 10:16:00) Differential Comment: See Below DxOne (05/23/24 10:16:00) Platelet Estimate: Adequate (05/23/24 10:16:00) Anisocytosis: 1+ (05/23/24 10:16:00) Poik: 2+ (05/23/24 10:16:00) Hypochrom: 1+ (05/03/24 05:50:00) Polychrom: 1+ (05/02/24 00:55:00) Macrocytosis: 3+ (05/23/24 10:16:00) Smudge Cells: 2+ (05/02/24 00:55:00) Tear Cell: 1+ (05/03/24 05:50:00) Ovalocytes: 1+ (05/23/24 10:16:00) Stomatocytes: 2+ (05/23/24 10:16:00) APTT: 33 seconds (05/01/24 14:01:00) Protime: 17.5 seconds High (05/01/24 14:01:00) PT International Ratio: 1.5 (05/01/24 14:01:00) UA Specimen Type: Clean Catch (05/01/24 16:12:00) UA Color: Yellow (05/01/24 16:12:00) UA Appear: Clear (05/01/24 16:12:00) UA Spec Grav: 1.015 (05/01/24 16:12:00) UA Glucose: Negative. (05/01/24 16:12:00) UA Bili: Negative. (05/01/24 16:12:00) UA Ketones: Negative. (05/01/24 16:12:00) UA Blood: Negative. (05/01/24 16:12:00) UA pH: 5.5 (05/01/24 16:12:00) UA Protein: Trace (05/01/24 16:12:00) UA Urobilinogen: 0.2 (05/01/24 16:12:00) UA Nitrite: Positive.1 Abnormal (05/01/24 16:12:00) UA Leuk Est: Negative. (05/01/24 16:12:00) UA RBC: None Seen (05/01/24 16:12:00) UA WBC: 10-15 Abnormal (05/01/24 16:12:00) UA Squam Epithelial: None Seen (05/01/24 16:12:00) UA Bacteria: 3+ Abnormal (05/01/24 16:12:00) Glucose Level: 96 mg/dL (05/23/24 10:16:00) Sodium Level: 139 mEq/L (05/23/24 10:16:00) Potassium Level: 4.4 mEq/L (05/23/24 10:16:00) Chloride: 105 mEq/L (05/23/24 10:16:00) CO2: 22 mEq/L (05/23/24 10:16:00) Electrolyte Balance: 12 mEq/L (05/23/24 10:16:00) BUN: 35 mg/dL High (05/23/24 10:16:00) Creatinine Lvl (s): 1.55 mg/dL High (05/23/24 10:16:00) Estimated Glomerular Filtration Rate: 48 ml/min/1.73sqm (05/23/24 10:16:00) BUN/Creatinine Ratio: 22.6 ratio High (05/23/24 10:16:00) Calcium Lvl: 9.6 mg/dL (05/23/24 10:16:00) Magnesium Lvl: 1.6 mg/dL (05/02/24 00:55:00) Total Protein: 6.9 G/dL (05/01/24 14:01:00) Albumin Level: 3.6 G/dL (05/01/24 14:01:00) Globulin: 3.3 G/dL (05/01/24 14:01:00) A/G Ratio: 1.1 ratio (05/01/24 14:01:00) Bili Total: 1 mg/dL (05/01/24 14:01:00) Alk Phos: 93 U/L (05/01/24 14:01:00) AST/SGOT: 46 U/L High (05/01/24 14:01:00) ALT/SGPT: 13 U/L Low (05/01/24 14:01:00) CPK: 63 U/L (05/23/24 10:16:00) GFR Non-: 45 ml/min/1.73sqm (05/03/24 05:50:00) GFR : 54 ml/min/1.73sqm (05/03/24 05:50:00) Lactic Acid Lvl: 1.4 mmol/L (05/01/24 14:01:00) High Sensitivity Troponin I: 9 ng/L (05/23/24 10:16:00) Ethanol Level: <10.0 (05/23/24 10:16:00) Mycoplasma IgM: Negative. (05/02/24 00:55:00) Mycoplasma IgG: neg (05/02/24 00:55:00) SARS-CoV-2 PCR: Cepheid Neg (05/01/24 14:01:00) FLU A PCR: Cepheid Neg (05/01/24 14:01:00) FLU B PCR: Cepheid Neg (05/01/24 14:01:00) RSV PCR: Cepheid Neg (05/01/24 14:01:00) MRSA (PCR): Not Detected Cepheid (05/02/24 05:15:00) MRSA PCR Int: See Below1 (05/02/24 05:15:00) Culture Blood: Auth (Verified) See Result (05/01/24 14:01:00) Culture Blood: Auth (Verified) See Result (05/01/24 14:01:00) Culture Respiratory with Gram Stain: Auth (Verified) POS Critical (05/02/24 20:47:00) Culture Urine: Auth (Verified) See Result (05/01/24 16:40:00) Legionella Urine Ag: Auth (Verified) See Result (05/02/24 05:15:00) Streptococcus Pneumoniae Urine Antig: Auth (Verified) See Result (05/02/24 05:15:00) Blood Glucose, Capillary: 118 mg/dL High (05/03/24 08:22:00) Blood Glucose Testing Reason: Routine (05/03/24 08:22:00) Imaging Results and Diagnostics CT Pelvis w/o Contrast Result Date: May 23, 2024 Verified By: OLIVIER CHICAS DO CLINICAL STATEMENT: IMPRESSION: 1. Comminuted right intra-articular hip fracture with surrounding hematoma.2. Large amount of rectal stool with distension and presacral stranding.Correlate for fecal impaction.3. Diverticulosis.4. Increased number of mesenteric and perirectal lymph nodes, although noneappear pathologicin size. These may be reactive in nature. Is there ahistory of malignancy or lymphoproliferative disorder?5. Advanced vascular calcifications, particularly at the left SFA and CLIENT PROJECT COORDINATOR.Correlate with any history of claudication.6. Small fat- containing left inguinal hernia. CT Head or Brain w/o Contrast Result Date: May 23, 2024 Verified By: OLIVIER CHICAS DO CLINICAL STATEMENT: IMPRESSION: 1. No acute intracranial abnormality.2. New fluid within bilateral mastoid air cells. Correlate for mastoiditis. CT Spine Cervical w/o Contrast Result Date: May 23, 2024 Verified By: MAXI PALOMO DO CLINICAL STATEMENT: IMPRESSION: No acute abnormality of the cervical spine. Aerated secretions within the visualized sphenoid sinuses with bilateralmastoid effusions. Findings may represent acute sinusitis in appropriateclinical setting. XR Hip Right w/Pelvis 4 Views Result Date: May 23, 2024 Verified By: OLIVIER CHICAS DO CLINICAL STATEMENT: IMPRESSION: 1. Comminuted and angulated right intra-articular hip fracture.2. Large rectal stool volume. XR Chest 1 View Result Date: May 23, 2024 Verified By: MAXI PALOMO DO CLINICAL STATEMENT: IMPRESSION: No acute radiographic findings. EKG EC05/23/24: SINUS RHYTHM LEFT ANTERIOR FASCICULAR BLOCK Electronic Signature: VILMA MARTINEZ MD 05/23/2024 11:42:59 Assessment/Plan Patient is admitted to regular floor, patient requires at least 2 midnights stay in the hospital including care already provided in the ED due to fall with right hip fracture and surrounding hematomain a patient taking Xarelto at home. Case discussed with ED physician Assessment: Fall Right hip fracture Hematoma of the right hip COPD Hypertension Hyperlipidemia Chronic lymphocytic leukemia Coronary artery disease Obstructive sleep apnea GERD History of DVT/PE A-fib on Xarelto CKD stage III Status post nephrectomy Plan: -Presented with fall resulting in right hip fracture with surrounding hematoma Orthopedics informed by ED physician, surgery either today or tomorrow Regular diet for now, n.p.o. after midnight IV NS 100 mL/h Tylenol/tramadol/Percocet/morphine/Dilaudid as needed for pain depending pain severity, IV Zofran as needed for nausea/vomiting Orthopedics have been consulted For right hip hematoma ordered Kcentra 2000 units Hold home Xarelto for now, last dose of Xarelto was last night Patient's revised cardiac risk index is 1 points correlating with 6% risk of major cardiac event Patient is medically optimized for surgery 1 hour after she received Kcentra For COPD breathing treatments as needed Resume home meds other than Xarelto Creatinine of 1.55 on admission with GFR around 40 is likely patient's baseline History of DVT/PE status post IVC filter For A-fib hold Xarelto but continue metoprolol Did discuss CODE STATUS with the patient and patient would like to be full code DVT prophylaxis: SCDs Hold pharmacological DVT prophylaxis in the setting of patient requiring surgery for right hip fracture Note was written using [employer] consulting solution manager software. Some of the meaning of the words and sentences might have changed during consulting solution manager, if there was ever some confusion about the meaning of some sentences, please do not hesitate to contact me. Problem List/Past Medical History See HPI Procedure/Surgical History Nephrectomy Large bowel PTCA - Percutaneous transluminal coronary angioplasty Stent Medications Home Medications (14) Active albuterol MDI (90 mcg/inh) CFC free inhalation aerosol 180 mcg = 2 inh, PRN, Inhalation, q6h Breztri Aerosphere 160 mcg-9 mcg-4.8 mcg/inh inhalation aerosol 2 puff(s), Inhalation, BID calcitriol 0.25 mcg oral capsule 50 mcg, Oral, qDay calcium (as carbonate) 600 mg oral tablet 600 mg = 1 tab(s), Oral, qDay cyclobenzaprine 10 mg oral tablet 10 mg = 1 tab(s), PRN, Oral, TID escitalopram 5 mg oral tablet 5 mg = 1 tab(s), Oral, qDay hydroxyurea 500 mg oral capsule 1,500 mg = 3 cap(s), Oral, qDay magnesium oxide 400 mg oral tablet 800 mg = 2 tab(s), Oral, qDay Metoprolol Succinate ER 100 mg oral TABLET extended release 100 mg = 1 tab(s), Oral, qDay omeprazole 40 mg oral delayed release capsule 40 mg = 1 cap(s), Oral, qDay Repatha SureClick 140 mg/mL subcutaneous solution 140 mg, Subcutaneous, qmonth Vitamin C 2,000 mg, Oral, qDay Xarelto 10 mg oral tablet 10 mg = 1 tab(s), Oral, qHS zolpidem 10 mg oral tablet 10 mg = 1 tab(s), PRN, Oral, qHS Allergies doxycycline penicillin Social History Alcohol Use: Past., 12/19/2022 Substance Abuse Use: Current. Type: Marijuana., 12/19/2022 Tobacco Nicotine Use: 10 or more cigarettes (1/2 pack or more)/day in last 30 days. Type: Cigarettes., 12/19/2022 Family History Family history is unknown Immunizations No qualifying data available. Code Status Code Status - Ordered -- 05/23/24 13:50:00 EST, Full Code, Constant Order Digitally Signed by REJI STEEN MD on 05/23/2024 02:27 PM Digitally Signed by REJI STEEN MD on 05/23/2024 02:28 PM Digitally Signed by REJI STEEN MD on 05/23/2024 04:37 PM Digitally Signed by REJI STEEN MD on 05/23/2024 07:[address] [id number] Evaluation + Plan noteExtracted from: Title:History and Physical Author:REJI STEEN MD Date:05/23/24 Patient is admitted to regul ar floor, patient requires at least 2 midnights stay in the hospital including care already provided in the ED due to fall with right hip fracture and surrounding hematoma in a patient taking Xarelto at home. Case discussed with ED physician Assessment: Fall Right hip fracture Hematoma of the right hip COPD Hypertension Hyperlipidemia Chronic lymphocytic leukemia Coronary artery disease Obstructive sleep apnea GERD History of DVT/PE A-fib on Xarelto CKD stage III Status post nephrectomy Plan: -Presented with fall resulting in right hip fracture with surrounding hematoma Orthopedics informed by ED physician, surgery either today or tomorrow Regular diet for now, n.p.o. after midnight IV NS 100 mL/h Tylenol/tramadol/Percocet/morphine/Dilaudid as needed for pain depending pain severity, IV Zofran as needed for nausea/vomiting Orthopedics have been consulted For right hip hematoma ordered Kcentra 2000 units Hold home Xarelto for now, last dose of Xarelto was last night Patient's revised cardiac risk index is 1 points correlating with 6% risk of major cardiac event Patient is medically optimized for surgery 1 hour after she received Kcentra For COPD breathing treatments as needed Resume home meds other than Xarelto Creatinine of 1.55 on admission with GFR around 40 is likely patient's baseline History of DVT/PE status post IVC filter For A-fib hold Xarelto but continue metoprolol Did discuss CODE STATUS with the patient and patient would like to be full code DVT prophylaxis: SCDs Hold pharmacological DVT prophylaxis in the setting of patient requiring surgery for right hip fracture Note was written using [employer] consulting solution manager software. Some of the meaning of the words and sentences might have changed during consulting solution manager, if there was ever some confusion about the meaning of some sentences, please do not hesitate to contact me. [facility] 02-09-2025 Note* Exam Date Time Procedure Performing Provider Status 05/23/24 11:[address] Pelvis w/o Contrast OLIVIER CHICAS DO; Modified [id number] ADDENDUM ADDENDUM: Report should say intertrochanteric rather than intra-articular. Interpreted by: Olivier Chicas DO Preliminary Report By: Olivier Chicas DO Electronically signed By Olivier Chicas DO Dictated Date: 05/24/2024 2:26:28 PM Prelim Date: 05/24/2024 2:26:37 PM Sign Date: 05/24/2024 2:26:37 PM Ordering Provider: VILMA MARTINEZ ORIGINAL EXAMINATION: CT OF THE PELVIS WITHOUT CONTRAST05/23/2024 11:24 am TECHNIQUE: CT of the pelvis was performed without the administration of intravenous contrast. Multiplanar reformatted images are provided for review. Adjustment of mA and/or kV according to patient size was utilized. Automated exposure control, iterative reconstruction, and/or weight based adjustment of the mA/kV was utilized to reduce the radiation dose to as low as reasonably achievable. COMPARISON: Same day radiograph HISTORY: ORDERING SYSTEM PROVIDED HISTORY: Reason for Exam: pt fell. complains about right hip pain FINDINGS: Redemonstrated comminuted right intra-articular hip fracture with angulation and multiple fracture fragments. There is surrounding right hip hematoma. No hip dislocation. No sacral or iliac fracture. There is left hip fixation hardware in place. There are advanced calcifications, particularly at the left SFA and CLIENT PROJECT COORDINATOR. Large amount of rectal stool with distension and presacral stranding is evident. This measures 9 cm in diameter. There are postsurgical changes of the sigmoid colon. There is diverticulosis. There is an increased number of mesenteric and perirectal lymph nodes, although none appear pathologic in size. There is aortic calcification. The visualized portion of the left kidney is unremarkable. No small bowel dilatation. Urinary bladder and prostate are within normal limits. There is small fat containing left inguinal hernia. IMPRESSION: 1. Comminuted right intra-articular hip fracture with surrounding hematoma. 2. Large amount of rectal stool with distension and presacral stranding. Correlate for fecal impaction. 3. Diverticulosis. 4. Increased number of mesenteric and perirectal lymph nodes, although none appear pathologic in size. These may be reactive in nature. Is there a history of malignancy or lymphoproliferative disorder? 5. Advanced vascular calcifications, particularly at the left SFA and CLIENT PROJECT COORDINATOR. Correlate with any history of claudication. 6. Small fat-containing left inguinal hernia. Interpreted by: Olivier Chicas DO Preliminary Report By: Olivier Chicas DO Electronically signed By Olivier Chicas DO Dictated Date: 05/23/2024 11:25:33 AM Prelim Date: 05/23/2024 11:30:00 AM Sign Date: 05/23/2024 11:30:00 AM Ordering Provider: VILMA [facility]ART[facility]Z [id number] Note* Exam Date Time Procedure Performing Provider Status 05/23/24 11:18 AM XR Hip Right w/Pelvis 4 Views OLIVIER CHICAS DO; Modified [id number] ADDENDUM ADDENDUM: Report should say intertrochanteric rather than intra-articular. Interpreted by: Olivier Chicas DO Preliminary Report By: Olivier Chicas DO Electronically signed By Olivier Chicas DO Dictated Date: 05/24/2024 2:25:56 PM Prelim Date: 05/24/2024 2:26:18 PM Sign Date: 05/24/2024 2:26:18 PM Ordering Provider: VILMA MARTINEZ ORIGINAL EXAMINATION: 2 XRAY VIEWS OF THE RIGHT HIP, 2 VIEWS OF THE PELVIS05/23/2024 11:18 am COMPARISON: None HISTORY: ORDERING SYSTEM PROVIDED HISTORY: Reason for Exam: pain FINDINGS: Left hip fixation hardware is in place. The pelvic ring is intact. There is a comminuted and angulated right intra-articular hip fracture. There are vascular calcifications. There is large rectal stool volume. IMPRESSION: 1. Comminuted and angulated right intra-articular hip fracture. 2. Large rectal stool volume. Interpreted by: Olivier Chicas DO Preliminary Report By: Olivier Chicas DO Electronically signed By Olivier Chicas DO Dictated Date: 05/23/2024 11:24:16 AM Prelim Date: 05/23/2024 11:25:20 AM Sign Date: 05/23/2024 11:25:20 AM Ordering Provider: VILMA [facility]ARTINEZ [facility] [id number] Note* Exam Date Time Procedure Performing Provider Status 05/23/24 11:[address] Spine Cervical w/o Contrast MAXI PALOMO DO; Auth (Verified) [id number] ORIGINAL EXAMINATION: CT OF THE CERVICAL SPINE WITHOUT CONTRAST 05/23/2024 11:18 am TECHNIQUE: CT of the cervical spine was performed without the administration of intravenous contrast. Multiplanar reformatted images are provided for review. Automated exposure control, iterative reconstruction, and/or weight based adjustment of the mA/kV was utilized to reduce the radiation dose to as low as reasonably achievable. COMPARISON: CT cervical spine 05/05/2023. HISTORY: ORDERING SYSTEM PROVIDED HISTORY: Reason for Exam: neck pain after fall. pain FINDINGS: BONES/ALIGNMENT: There is no acute fracture or traumatic malalignment. Unchanged mild depression of the superior endplate of C7 vertebral body. Unchanged degenerative minimal anterolisthesis of C3 on C4 and minimal retrolisthesis of C5 on C6. DEGENERATIVE CHANGES: Moderate to severe multilevel degenerative changes with disc space narrowing greatest at C5-C6, C6-C7 and C7-T1. No significant spinal canal stenosis. There is variable neural foraminal stenoses greatest at C5-C6 bilaterally. SOFT TISSUES: There is no prevertebral soft tissue swelling. OTHER: Bilateral nonspecific mastoid effusions. Aerated secretions within the visualized sphenoid sinuses. IMPRESSION: No acute abnormality of the cervical spine. Aerated secretions within the visualized sphenoid sinuses with bilateral mastoid effusions. Findings may represent acute sinusitis in appropriate clinical setting. Interpreted by: Maxi Palomo Preliminary Report By: Maix Palomo Electronically signed By Maxi Palomo Dictated Date: 05/23/2024 11:31:13 AM Prelim Date: 05/23/2024 11:39:01 AM Sign Date: 05/23/2024 11:39:01 AM Ordering Provider: VILMA [facility]ARTINEZ [facility] [id number] Note* Exam Date Time Procedure Performing Provider Status 05/23/24 11:17 AM XR Chest 1 View MAXI PALOMO DO; [facility] (Verified) [id number] ORIGINAL EXAMINATION: ONE XRAY VIEW OF THE CHEST 05/23/2024 11:17 am COMPARISON: CT chest 05/02/2024, chest x-ray 05/01/2024. HISTORY: ORDERING SYSTEM PROVIDED HISTORY: Reason for Exam: pain FINDINGS: Cardiomediastinal silhouette is stable. No focal consolidation, large pleural effusion or pneumothorax. Osseous structures appear intact. IMPRESSION: No acute radiographic findings. Interpreted by: Maxi Palomo Preliminary Report By: Maxi Palomo Electronically signed By Maxi Palomo Dictated Date: 05/23/2024 11:26:57 AM Prelim Date: 05/23/2024 11:28:54 AM Sign Date: 05/23/2024 11:28:54 AM Ordering Provider: VILMA [facility]02-09-2025 Note* Exam Date Time Procedure Performing Provider Status 05/23/24 11:[address] Head or Brain w/o Contrast OLIVIER CHICAS DO; Auth (Verified) [id number] ORIGINAL EXAMINATION: CT OF THE HEAD WITHOUT CONTRAST 05/23/2024 11:17 am TECHNIQUE: CT of the head was performed without the administration of intravenous contrast. Automated exposure control, iterative reconstruction, and/or weight based adjustment of the mA/kV was utilized to reduce the radiation dose to as low as reasonably achievable. COMPARISON: 05/05/2023 HISTORY: ORDERING SYSTEM PROVIDED HISTORY: Reason for Exam: fall on Xarelto. negative loc. pain FINDINGS: There is no intracranial hemorrhage, mass, mass effect or abnormal extra-axial fluid collection. No evidence of an acute territorial infarct is identified. Periventricular and subcortical white matter hypoattenuation is nonspecific but most commonly reflects microvascular angiopathy. There is cerebral parenchymal loss, with associated enlargement of the ventricles and sulci. Calcifications of the larger arteries are noted. There are senescent calcifications within the basal ganglia. The skull base and calvarium demonstrate no acute abnormality. There is minor left maxillary sinus and ethmoid air cell mucosal disease. Remaining paranasal sinuses are clear. There is new fluid within bilateral mastoid air cells. IMPRESSION: 1. No acute intracranial abnormality. 2. New fluid within bilateral mastoid air cells. Correlate for mastoiditis. Interpreted by: Olivier Chicas DO Preliminary Report By: Olivier Chicas DO Electronically signed By Olivier Chicas DO Dictated Date: 05/23/2024 11:19:44 AM Prelim Date: 05/23/2024 11:24:05 AM Sign Date: 05/23/2024 11:24:05 AM Ordering Provider: VILMA MARTINEZ [facility] [id number] Note* Exam Date Time Procedure Performing Provider Status 05/23/24 10:14 AM EKG (ED) - CV VILMA MARTINEZ MD; Aut h (Verified) ECG Final Report SINUS RHYTHM LEFT ANTERIOR FASCICULAR BLOCK Electronic Signature: VILMA MARTINEZ MD 05/23/2024 11:42:[address] [facility] [id number] Note. MICRO - Microbiology PROCEDURE: Culture Respiratory with Gram Stain [^1 *1] SOURCE: Sputum BODY SITE: COLLECTED DATE/TIME: 05/02/2024 20:47 EST RECEIVED DATE/TIME: 05/02/2024 21:04 EST START DATE/TIME: 05/02/2024 21:04 EST FREE TEXT SOURCE: FINAL REPORTS Final Report [] Verified Date/Time/Personnel: 05/05/2024 08:02 EST Normal respiratory keo present. Light Pseudomonas aeruginosa PRELIMINARY REPORTS Preliminary Report [] Verified Date/Time/Personnel: 05/04/2024 09:51 EST Normal respiratory keo present. Light Pseudomonas aeruginosa TODD to follow Preliminary Report [] Verified Date/Time/Personnel: 05/03/2024 10:38 EST Culture results pending. STAINS GS [] Verified Date/Time/Personnel: 05/02/2024 23:14 EST 1+ Epithelial cells 3+ Polymorphonuclear cells 3+ Gram Negative Rods 3+ Gram Positive Cocci Rare Yeast SUSCEPTIBILITY RESULTS Pseudomonas aeruginosa Antibiotic TODD Dilut TODD Inter Aztreonam 16 Intermediate Cefepime 4 Susceptible Ceftazidime 4 Susceptible Ceftazidime/ <=4 Susceptible Avibactam Ceftolozane/ <=2 Susceptible Tazobactam ID Panel Not Not Applicable Applicable Imipenem 2 Susceptible Levofloxacin >4 Resistant Meropenem <=1 Susceptible Piperacillin/ <=8 Susceptible Tazobactam Tobramycin <=2 Susceptible Interpretive Data ^1: Culture Respiratory with Gram Stain Requests for Mycoplasma, Legionella, Fungi, Mycobacteria, Chlamydia, and Viruses require ordering of those individual tests. Performing Locations *1: This test was performed at: [address], [facility] , [facility] [id number] Note. MICRO - Microbiology PROCEDURE: Urine Culture [O1 *1] SOURCE: Urine BODY SITE: COLLECTED DATE/TIME: 05/01/2024 16:40 EST RECEIVED DATE/TIME: 05/02/2024 15:09 EST START DATE/TIME: 05/02/2024 15:09 EST FREE TEXT SOURCE: FINAL REPORTS Final Report [] Verified Date/Time/Personnel: 05/04/2024 07:01 EST No growth at 48 hours. PRELIMINARY REPORTS Preliminary Report [] Verified Date/Time/Personnel: 05/03/2024 08:32 EST No growth to date Order Comments O1: Urine Culture Added by Discern Performing Locations *1: This test was performed at: [facility], [address] [place] [address], [id number] , [facility]01-20-2025 Pastoral care Progress note Pastoral Care Note Entered On: 05/03/2024 14:41 EST Performed On: 05/03/2024 9:05 EST by Pantera Quintero Pastoral Care Type of Pastoral Visit : Initial visit Spiritual Care Visit Initiated by : Consult/Referral Spiritual Care Reason for Visit : General Pastoral Care Referral From : Patient Spiritual Assessment : Faithful, Hopeful, Grateful/Thankful Spiritual Care Emotional Assessment : Optimistic, Frustrated Spiritual Care Intervention : Active listening, Words of Encouragement, Compassion/Empathy, Validation of Feelings, Supportive presence, Humor/Laughter, Explore Spiritual Needs, Explore Emotional Needs, Prayer with Patient/Family, Conversation Spiritual Outcomes : Spiritual Resources Stirred, Expresses Gratitude, Expresses Brett Spiritual Plan of Care : Visit as Requested Pastoral Care Comments : Provided spiritual/emotional care to pt w/presence, emphatic listening, encouragement, conversation, validation of feelings, compassion, life review, humor. Pt expressed frustration...I can't seem to stay out of hospital. Pt expressed brett, hope, thankfulness, determination, desire to get home (and stay home!). Prayed at req of pt. Pastoral Care Visit Length : 15 minute(s) Pantera Quintero - 05/03/2024 14:39 EST Digitally Signed by Pantera Quintero on 05/03/2024 02:[address] [facility] [id number] Hospital Discharge instructions Patient Education 05/03/2024 10:47:36 Community-Acquired Pneumonia, Adult, [id number]-Zhra Community-Acquired Pneumonia, Adult Pneumonia is an infection of the lungs. It causes swelling in the airways of the lungs. Mucus and fluid may also build up inside the airways. One type of pneumonia can happen while a person is in a hospital. A different type can happen when a person is not in a hospital (community-acquired pneumonia). What are the causes? This condition is caused by germs (viruses, bacteria, or fungi). Some types of germs can be passed from one person to another. This can happen when you breathe in droplets from the cough or sneeze ofan infected person. What increases the risk? You are more likely to develop this condition if you: Have a long-term (chronic) disease, such as: ?Chronic obstructive pulmonary disease (COPD). ?Asthma. ?Cystic fibrosis. ?Congestive heart failure. ?Diabetes. ?Kidney disease. Have HIV. Have sickle cell disease. Have had your spleen removed. Do not take good care of your teeth and mouth (poor dental hygiene). Have a medical condition that increases the risk of breathing in droplets from your own mouth and nose. Have a weakened body defense system (immune system). Are a smoker. Travel to areas where the germs that cause this illness are common. Are around certain animals or the places they live. What are the signs or symptoms? A dry cough. A wet (productive) cough. Fever. Sweating. Chest pain. This often happens when breathing deeply or coughing. Fast breathing or trouble breathing. Shortness of breath. Shaking chills. Feeling tired (fatigue). Muscle aches. How is this treated? Treatment for this condition depends on many things. Most adults can be treated at home. In some cases, treatment must happen in a hospital. Treatment may include: Medicines given by mouth or through an IV tube. Being given extra oxygen. Respiratory therapy. In rare cases, treatment for very bad pneumonia may include: Using a machine to help you breathe. Having a procedure to remove fluid from around your lungs. Follow these instructions at home: Medicines Take sotx-hez-ihbubfu and prescription medicines only as told by your doctor. ?Only take cough medicine if you are losing sleep. If you were prescribed an antibiotic medicine, take it as told by your doctor. Do not stop taking the antibiotic even if you start to feel better. General instructions Sleep with your head and neck raised (elevated). You can do this by sleeping in a recliner or by putting a few pillows under your head. Rest as needed. Get at least 8 hours of sleep each night. Drink enough water to keep your pee (urine) pale yellow. Eat a healthy diet that includes plenty of vegetables, fruits, whole grains, low-fat dairy products, and lean protein. Do not use any products that contain nicotine or tobacco. These include cigarettes, e-cigarettes, and chewing tobacco. If you need help quitting, ask your doctor. Keep all follow-up visits as told by your doctor. This is important. How is this prevented? A shot (vaccine) can help prevent pneumonia. Shots are often suggested for: People older than 65 years of age. People older than 19 years of age who: ?Are having cancer treatment. ?Have long-term (chronic) lung disease. ?Have problems with their body's defense system. You may also prevent pneumonia if you take these actions: Get the flu (influenza) shot every year. Go to the dentist as often as told. Wash your hands often. If you cannot use soap and water, use hand scanning tech. Contact a doctor if: You have a fever. You lose sleep because your cough medicine does not help. Get help right away if: You are short of breath and it gets worse. You have more chest pain. Your sickness gets worse. This is very serious if: ?You are an older adult. ?Your body's defense system is weak. You cough up blood. Summary Pneumonia is an infection of the lungs. Most adults can be treated at home. Some will need treatment in a hospital. Drink enough water to keep your pee pale yellow. Get at least 8 hours of sleep each night. This information is not intended to replace advice given to you by your health care provider. Make sure you discuss any questions you have with your health care provider. Document Released: 09/16/2008 Document Revised: 07/21/2019 Document Reviewed: 11/26/2018 [employer] Patient Education 2020 [employer]. Follow Up Care 05/01/2024 18:41:02 With:ELIJAH OROZCO MD Address: [facility] [address] [place] [address] [address] [place] [address]- When:1-2 days Comments:Please call the office to schedule a hospital follow up appointment. With:JEYSON AGUIAR MD Address: [address] [facility] [address] [facility] [place] [address]- [phone] When:Within 3 Week(s) only if needed Comments:Lung doctor that saw you in the hospital [facility] 01-20-2025 Discharge summary Date of Service 05/03/24 Discharge Diagnosis -Sepsis due to right sided bacterial pneumonia due to unknown organism -COPD exacerbation -History of Pulmonary nodule s/p bx outside facility, repeat CT here wnl -Afib on xarelto -Presence of IVC filter -Bilateral tympanic membrane tube placement 04/27 on antibiotic ear drops -Anxiety and Depression -CLL -Chronic diarrhea Hospital Course 68-year-old male with a past medical history consistent with right upper lobe lung nodule s/p Bx 2023 reportedly benign, nephrectomy and chronic kidney disease stage 3 unspecified whether a or b, COPD, essential hypertension, dyslipidemia, coronary artery disease without angina, CLL, obstructive sleep apnea, GERD, DVT/PE with presence of IVC filter, and atrial fibrillation the presents for chief complaint of shortness of breath. Patient recently obtained pneumococcal vaccination. Increased shortness of breath and malaise led to ER presentation. Of note had bilateral ear tubes placed 04/27 by ENT and had been on antibiotic ear drops with plan to continue until 05/04. Tachycardic, tachypnea on arrival w/ low o2 requirement. WBC 24, hg 8.6, Cr 2 initially, BUN 36. CXR rt sided PNA, started on IV antibiotics and IV steroids for COPD exacerbation. He was admitted to hospital and monitored on telemetry. Pulmonology consulted based on history pulmonary nodule, repeat CT w/o contrast here was negative for malignant nodule. He received 2 doses of ceftriaxone and was switched to cefdinir 300 bid for 3 days. He was transitioned from IV to oral steroids for COPD exacerbation. His O2 was weaned during admit, he did not require O2 on discharge. His anticoagulation was continued. He was given ofloxacin drops for his ears here given recent bilateral tympanostomy procedure as this is what we had on formulary. He will follow up with all providers in his care. Allergies doxycycline penicillin Procedures none Consults Consult to Case Management/Social Service (Case Management/Social Service Consult) - Ordered -- 05/03/24 9:37:00 EST, Physician Order, needs help w/ transport Consult to Case Management/Social Service (Consult to Case Management) - Ordered -- 05/02/24 2:42:00 EST, Physician Order, Home going needs Consult to Physician (Physician Consult) - Ordered -- 05/02/24 2:43:00 EST, CARLOS MENDOZA MD, Routine, lung mass Consult to Spiritual Care Team (Consult to Pastoral Care) - Ordered -- 05/02/24 0:49:27 EST Imaging Results and Diagnostics CT Thorax w/o Contrast Result Date: May 02, 2024 Verified By: PANTERA PHILLIPS MD CLINICAL STATEMENT: IMPRESSION: Mild to moderate right and minimal left consolidation. This should befollowed to radiographic resolution. Mild lymphadenopathy. Physical Exam Vitals and Measurements T: 36.6 C (Oral) TMIN: 36.6 C (Oral) TMAX: 37.3 C (Oral) HR: 88 RR: 20 BP: 103/60 SpO2: 98% Weight Dosing Weight: 85.9 kg (05/02/24) general: well appearing, sitting up eating pancakes neuro: alert and oriented lungs: rhonchi R>>L. speaking full sentences no resp distress on room air. cardiac: RRR Code Status Code Status - Ordered -- 05/02/24 0:41:00 EST, Full Code, Constant Order Admission Date 05/02/24 Discharge Date 05/03/24 Patient Instructions Take prednisone steroid and antibiotic cefdinir as prescribed. Follow up with all providers involved in your care. No other changes were made to your medication. Medications New Prescription albuterol (albuterol MDI (90 mcg/inh) CFC free inhalation aerosol)2 inh by inhalation every 6 hoursas needed as needed for wheezing for 30 Days. Refills: 0. guaiFENesin (guaiFENesin 600 mg oral tablet, extended release)1 tab(s) by mouth two (2) times a dayfor 10 Days. Refills: 0. predniSONE (predniSONE 20 mg oral tablet)2 tab(s) by mouth once a day with a meal for 3 Days. Refills: 0. Changed ascorbic acid (Vitamin C)2,000 Milligram by mouth once a day. calcitriol (calcitriol 0.25 mcg oral capsule)50 Microgram by mouth once a day. cefdinir (cefdinir 300 mg oral capsule)1 cap by mouth every 12 hours for 3 Days. Refills: 0. cyclobenzaprine (cyclobenzaprine 10 mg oral tablet)1 tab(s) by mouth three (3) times a day as needed Muscle spasm. TAKE 1 TABLET BY MOUTH THREE TIMES DAILY. escitalopram (escitalopram 5 mg oral tablet)1 tab(s) by mouth once a day. magnesium oxide (magnesium oxide 400 mg oral tablet)2 tab(s) by mouth once a day. metoprolol (Metoprolol Succinate ER 100 mg oral TABLET extended release)1 tab(s) by mouth once a day. omeprazole (omeprazole 40 mg oral delayed release capsule)1 cap by mouth once a day. TAKE 1 CAPSULEBY MOUTH ONCE DAILY. rivaroxaban (Xarelto 10 mg oral tablet)1 tab(s) by mouth daily at bedtime. Unchanged budesonide/formoterol/glycopyrrolate (Breztri Aerosphere 160 mcg-9 mcg-4.8 mcg/inh inhalation aerosol)2 puff(s) by inhalation two (2) times a day. rinse mouth and throat after use. calcium carbonate (calcium (as carbonate) 600 mg oral tablet)1 tab(s) by mouth once a day. hydroxyurea (hydroxyurea 500 mg oral capsule)3 cap by mouth once a day. EXCEPT FOR SUNDAYS. zolpidem (zolpidem 10 mg oral tablet)1 tab(s) by mouth daily at bedtime as needed as needed for sleep. Discontinued acetaminophen1,000 Milligram by mouth two (2) times a day. amLODIPine (amLODIPine 5 mg oral tablet) azithromycin (azithromycin 250 mg oral tablet) codeine-guaifenesin (codeine-guaifenesin 10 mg-100 mg/5 mL oral syrup) ferrous sulfateUnknown Strength (NEEDS CLARIFIED). fluticasone nasal (fluticasone proprionate NASAL 50 mcg/ spray) ondansetronas needed as needed for nausea/vomiting. Follow Up Follow Up with ELIJAH OROZCO MD When:Within 1-2 days Where:AD[facility]ATR[facility] [address] [place] [address]- Additional Information: Please call the office to schedule a hospital follow up appointment. Follow Up with JEYSON AGUIAR MD When:In 3 weeks , only if needed [facility] [facility] [address] [place] [address]- [phone] Additional Information: Lung doctor that saw you in the hospital Follow Up Appointments No qualifying data available. Follow Up Labs/Studies Discharge Labs No Follow-up Labs Discharge Studies No Follow-up Studies Discharge Diet Discharge Diet - Ordered -- Type of Diet: Regular, 05/03/24 9:35:00 EST Discharge Activity Discharge Activity - Ordered -- Resume your pre-hospitalization activity, 05/03/24 9:35:00 EST Condition on Discharge fair Discharge Disposition home Information Provided To madelaine russell Time Spent 40min Digitally Signed by KRISTIN MAC MD on 05/03/2024 12:[address] [id number] Note Discharge Instructions Thank you for allowing [facility] to assist you with your healthcare needs. The following is importantdischarge information regarding your hospital visit. Your Care Team ELIJAH OORZCO MD What to do next Instructions From Your Doctor Take prednisone steroid and antibiotic cefdinir as prescribed. Follow up with all providers involved in your care. No other changes were made to your medication. Follow Up Appointments Follow Up with JEYSON AGUIAR MD When:In 3 weeks , only if needed Where:[address] [facility] [address] [place] [address]- [phone] Additional Information: Lung doctor that saw you in the hospital Follow Up with ELIJAH OROZCO MD When:Within 1-2 days Where:ADULT [facility]ATRICS/[facility] [address] [place] [address]- The Following Activity and Diet Have Been Ordered for You Discharge Activity - Ordered -- Resume your pre-hospitalization activity, 05/03/24 9:35:00 EST Discharge Diet - Ordered -- Type of Diet: Regular, 05/03/24 9:35:00 EST The Following Equipment Has Been Ordered for You No qualifying data available. The Following Treatments Have Been Ordered for You Discharge Labs No qualifying data available. Discharge Radiology No qualifying data available. Other Therapies No qualifying data available. Post Acute Orders No qualifying data available. Someone Will Contact You Regarding These Home Health Referrals No home referrals have been ordered for you. No one will call you. Allergies doxycycline penicillin Medications Please ask your primary doctor or pharmacist before taking any other medication not listed, including over the counter drugs, herbal medications, vitamins and or supplements as they may interact withyour home medications. What How Much When Instructions Last Dose New albuterol (albuterol MDI (90 mcg/ inh) CFC free inhalation aerosol) 2 inh by inhalation Every 6 hours as needed for as needed for wheezing Duration: 30 Days Printed Prescription New guaiFENesin (guaiFENesin 600 mg oral tablet, extended release) 1 tab(s) by mouth Two (2) times a day Duration: 10 Days Printed Prescription New predniSONE (predniSONE 20 mg oral tablet) 2 tab(s) by mouth Once a day with a meal Duration: 3 Days Printed Prescription Changed ascorbic acid (Vitamin C) 2,000 Milligram by mouth Once a day Changed calcitriol (calcitriol 0.25 mcg oral capsule) 50 Microgram by mouth Once a day Changed cefdinir (cefdinir 300 mg oral capsule) 1 cap by mouth Every 12 hours Duration: 3 Days Printed Prescription Changed cyclobenzaprine (cyclobenzaprine 10 mg oral tablet) 1 tab(s) by mouth Three (3) times a day as needed for Muscle spasm TAKE 1 TABLET BY MOUTH THREE TIMES DAILY Changed escitalopram (escitalopram 5 mg oral tablet) 1 tab(s) by mouth Once a day Changed magnesium oxide (magnesium oxide 400 mg oral tablet) 2 tab(s) by mouth Once a day Changed metoprolol (Metoprolol Succinate ER 100 mg oral TABLET extended release) 1 tab(s) by mouth Once a day Changed omeprazole (omeprazole 40 mg oral delayed release capsule) 1 cap by mouth Once a day TAKE 1 CAPSULE BY MOUTH ONCE DAILY Changed rivaroxaban (Xarelto 10 mg oral tablet) 1 tab(s) by mouth Daily at bedtime Unchanged budesonide/ formoterol/ glycopyrrolate (Breztri Aerosphere 160 mcg-9 mcg-4.8 mcg/ inh inhalation aerosol) 2 puff(s) by inhalation Two (2) times a day rinse mouth and throat after use Unchanged calcium carbonate (calcium (as carbonate) 600 mg oral tablet) 1 tab(s) by mouth Once a day Unchanged hydroxyurea (hydroxyurea 500 mg oral capsule) 3 cap by mouth Once a day EXCEPT FOR SUNDAYS Unchanged zolpidem (zolpidem 10 mg oral tablet) 1 tab(s) by mouth Daily at bedtime as needed for as needed for sleep What How Much When Comments Stop Taking acetaminophen 1,000 Milligram by mouth Two (2) times a day Stop Taking amLODIPine (amLODIPine 5 mg oral tablet) Stop Taking azithromycin (azithromycin 250 mg oral tablet) Stop Taking codeine-guaifenesin (codeine-guaifenesin 10 mg-100 mg/ 5 mL oral syrup) Stop Taking ferrous sulfate Unknown Strength (NEEDS CLARIFIED) Stop Taking fluticasone nasal (fluticasone proprionate NASAL 50 mcg/ spray) Stop Taking ondansetron As needed for as needed for nausea/vomiting Please take this list to your next doctor s visit. Bring all medications you take, including over the counter medications, herbals and other supplements with you to your doctor s visit. Patients and families are reminded to discard old lists and to update any records with all medication providers or retail pharmacies. Education Materials Community-Acquired Pneumonia, Adult Pneumonia is an infection of the lungs. It causes swelling in the airways of the lungs. Mucus and fluid may also build up inside the airways. One type of pneumonia can happen while a person is in a hospital. A different type can happen when a person is not in a hospital (community-acquired pneumonia). What are the causes? This condition is caused by germs (viruses, bacteria, or fungi). Some types of germs can be passed from one person to another. This can happen when you breathe in droplets from the cough or sneeze ofan infected person. What increases the risk? You are more likely to develop this condition if you: Have a long-term (chronic) disease, such as: ? Chronic obstructive pulmonary disease (COPD). ? Asthma. ? Cystic fibrosis. ? Congestive heart failure. ? Diabetes. ? Kidney disease. Have HIV. Have sickle cell disease. Have had your spleen removed. Do not take good care of your teeth and mouth (poor dental hygiene). Have a medical condition that increases the risk of breathing in droplets from your own mouth and nose. Have a weakened body defense system (immune system). Are a smoker. Travel to areas where the germs that cause this illness are common. Are around certain animals or the places they live. What are the signs or symptoms? A dry cough. A wet (productive) cough. Fever. Sweating. Chest pain. This often happens when breathing deeply or coughing. Fast breathing or trouble breathing. Shortness of breath. Shaking chills. Feeling tired (fatigue). Muscle aches. How is this treated? Treatment for this condition depends on many things. Most adults can be treated at home. In some cases, treatment must happen in a hospital. Treatment may include: Medicines given by mouth or through an IV tube. Being given extra oxygen. Respiratory therapy. In rare cases, treatment for very bad pneumonia may include: Using a machine to help you breathe. Having a procedure to remove fluid from around your lungs. Follow these instructions at home: Medicines Take triq-lpy-qgibcae and prescription medicines only as told by your doctor. ? Only take cough medicine if you are losing sleep. If you were prescribed an antibiotic medicine, take it as told by your doctor. Do not stop taking the antibiotic even if you start to feel better. General instructions Sleep with your head and neck raised (elevated). You can do this by sleeping in a recliner or by putting a few pillows under your head. Rest as needed. Get at least 8 hours of sleep each night. Drink enough water to keep your pee (urine) pale yellow. Eat a healthy diet that includes plenty of vegetables, fruits, whole grains, low-fat dairy products, and lean protein. Do not use any products that contain nicotine or tobacco. These include cigarettes, e-cigarettes, and chewing tobacco. If you need help quitting, ask your doctor. Keep all follow-up visits as told by your doctor. This is important. How is this prevented? A shot (vaccine) can help prevent pneumonia. Shots are often suggested for: People older than 65 years of age. People older than 19 years of age who: ? Are having cancer treatment. ? Have long-term (chronic) lung disease. ? Have problems with their body's defense system. You may also prevent pneumonia if you take these actions: Get the flu (influenza) shot every year. Go to the dentist as often as told. Wash your hands often. If you cannot use soap and water, use hand scanning tech. Contact a doctor if: You have a fever. You lose sleep because your cough medicine does not help. Get help right away if: You are short of breath and it gets worse. You have more chest pain. Your sickness gets worse. This is very serious if: ? You are an older adult. ? Your body's defense system is weak. You cough up blood. Summary Pneumonia is an infection of the lungs. Most adults can be treated at home. Some will need treatment in a hospital. Drink enough water to keep your pee pale yellow. Get at least 8 hours of sleep each night. This information is not intended to replace advice given to you by your health care provider. Make sure you discuss any questions you have with your health care provider. Document Released: 09/16/2008 Document Revised: 07/21/2019 Document Reviewed: 11/26/2018 Elsevier Patient Education 2020 [employer] Additional Information VACCINATE! IT SAVES LIVES! Members of the community who have not yet received the COVID-19 vaccine and would like to receive it can visit one of [facility] vaccine clinics. There are many vaccine clinic locations within the [facility]. For locations and available times, please visit [email or web address].[place].gov/. It is important to note that some COVID mobile vaccine clinics are held outdoors and may be canceled in rainy or stormy conditions. To learn more about pediatric vaccinations (ages 5-11), we invite you to visit the [facility] webpage. [email or web address].Gidsys.org/pages/[email or web address]-Sjhdn-Zapyrjcccde-Tttvoqmoqs-[email or web address] stions.htmlTo learn more about the COVID-19 vaccine, we invite you to visit the CDC website for a list of frequently asked questions.https://www.cdc.gov/coronavirus/2019-ncov/vaccines/faq.html [facility] Patient Portal Access Instructions: Stay connected with your healthcare team and access your personal medical information anytime with the [facility] Patient Portal. Please follow the directions below to create your [facility] account: 1.Access the email account you provided upon registration to the hospital/physician office.2.Look for an invitation email from [facility].3.Open the email and access the invitation link: AcceptInvitation to [facility].4.Fill in the required morales to create your account. To access your account, visit Farm[employer]/Hello Musict. Click the blue button labeled Access Patient Portal and then log in with the username and password that you created in the steps above. You will be able to view your test results, lab results, a summary of your visits, upcoming appointments and more. There is also a convenient messaging option where you can send secure messages to your p rovider. In addition, you will have the ability to download any documents or summaries to your computer and/or send the information securely to a physician. Remember that your healthcare information is confidential, so carefully consider who you will allowto register on the [facility] Patient Portal for access to your information. You can also access the [facility] on the [facility] domenic. Simply click on Patient Portal and then log into your account. If you would like to receive a full copy of your medical records, please contact the [facility] Medical Records Department by calling [phone], Friday through Friday between 8 a.m. and 4:30 p.m. HOW TO SAFELY DISPOSE OF PRESCRIPTION MEDICATIONS Please use one of the following methods to safely dispose of your unused medications. 1.Use a drug disposal kit: the drug disposal pouch allows you to safely discard your old and unuseddrugs. Ask your nurse to give you one when you are discharged.2.Visit a local take-back location: Many local pharmacies and police departments have programs that collect old and unwanted prescriptiondrugs. Call your local pharmacy or go to http://MuseAmi/0E7Us2s to find one close to you.3.Make use of household items: Use cat litter or old coffee grounds to dispose medications if other options arenot available. Mix your drugs with these household products, seal them in an airtight container andthrow it into the garbage. Call [facility]: [phone] to be sure your drugs can be disposed of in this way. Some medicines may require a different approach.4.Never flush your medications down the toilet. IF YOU HAVE BEEN PRESCRIBED AN OPIOID FOR PAIN If you have been prescribed [...] have withdrawal symptoms when a medication is stopped, can develop within a few days. KNOW [...] children, family, friends and visitors). The last page of this document has been signed and retained as a CHART COPY. Signatures Patient Education Materials Community-Acquired Pneumonia, Adult, Aflh-uk-Hfbw Medication Leaflets My discharge plan and instructions have been reviewed and explained to me and I,ADINA DAVID understand my current condition and have read and understand these discharge instructions. I have received awritten copy of the plan/instructions. If I have questions, I am aware that I should contact my doctor. 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 Note. MICRO - Microbiology PROCEDURE: Blood Culture (bacterial) [*1] SOURCE: Blood BODY SITE: COLLECTED DATE/TIME: 05/01/2024 14:01 EST RECEIVED DATE/TIME: 05/02/2024 14:37 EST START DATE/TIME: 05/02/2024 14:37 EST FREE TEXT SOURCE: PRELIMINARY REPORTS Preliminary Report [] Verified Date/Time/Personnel: 05/02/2024 15:59 EST Culture has been received in lab and is no growth to date. Routine cultures are held for 5 days. Performing Locations *1: This test was performed at: [facility], [address] [place] [address], [facility] , [facility]01-19-2025 Note. MICRO - Microbiology PROCEDURE: Blood Culture (bacterial) [*1] SOURCE: Blood BODY SITE: COLLECTED DATE/TIME: 05/01/2024 14:01 EST RECEIVED DATE/TIME: 05/02/2024 14:37 EST START DATE/TIME: 05/02/2024 14:38 EST FREE TEXT SOURCE: PRELIMINARY REPORTS Preliminary Report [] Verified Date/Time/Personnel: 05/02/2024 15:59 EST Culture has been received in lab and is no growth to date. Routine cultures are held for 5 days. Performing Locations *1: This test was performed at: [facility], [address] [place] [address], [id number] , [facility]01-19-2025 Evaluation + Plan noteExtracted from: Title:History and Physical Author:THERESA KENNEDY Date:05/02/24 Right lower lobe pneumonia Acute hypoxic respiratory failure COPD exacerbation Lung mass Leukocytosis in setting of pneumonia, CLL CIRA Status post nephrectomy Hypertension Hyperlipidemia CAD CKD Anemia Patient was admitted to stepdown for management of multiple medical issues including acute hypoxic respiratory failure in the setting of a right lower lobe pneumonia, likely COPD exacerbation. Additionally, patient with a noted lung mass on April [address] thorax with contrast initiated given known lung mass in the past. It is unclear whether this has been investigated. Pulmonology is consulted, appreciate recommendations. Patient may require IR guided lung biopsy. IV Rocephin, IV azithromycin initiated for right mid, right lower lobe pneumonia. De-escalate antibiotics as able. Urinary antigens and respiratory culture ordered, pending. 125 mg IV Solu-Medrol initiated, continue 60 mg every 8 hour IV Solu-Medrol the floor. As needed and scheduled DuoNebs. Wean nasal cannula oxygen therapy as tolerated. CBC and BMP ordered daily replete electrolytes as necessary. Patient with leukocytosis though has history of CLL. IV Dilaudid for pain control. IV Zofran for nausea control. Continue patient's home chronic medications pending pharmacy verification. The labs, the imaging, the EKG were personally reviewed this case. The case was personally discussed with the ED physician. DVT prophylaxis: SCDs Patient is full code [facility] 01-19-2025 Note* Exam Date Time Procedure Performing Provider Status 05/02/24 1:[address] Thorax w/o Contrast PANTERA PHILLIPS MD; Auth (Verified) [id number] ORIGINAL HISTORY: Cough, nodules COMPARISON: 05 May 2023 TECHNIQUE: Chest CT with sagittal and coronal reconstructions. This exam was performed according to our departmental dose optimization program, and includes the following measures where applicable: automated exposure control, adjustment of the mAs and/or kVp according to patient size and/or exam, and an iterative reconstruction algorithm. FINDINGS: There is irregular patchy consolidation in the right mid lung, with small scattered areas ground-glass opacification throughout much of the right upper lobe, and denser consolidation adjacent to the major fissures. In the right base, there is extensive small airway disease in the lower lobes along with mild bronchiectasis and bronchial wall thickening. There is milder bronchiectasis and scattered small airway disease on the left. There is mild axillary lymphadenopathy on both sides with nodes ranging in size up to about 10 mm. There is more prominent mediastinal lymphadenopathy, with nodes ranging in size up to a 15 mm right paratracheal node. 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 Chest wall structures are otherwise unremarkable. IMPRESSION: Mild to moderate right and minimal left consolidation. This should be followed to radiographic resolution. Mild lymphadenopathy. Interpreted by: Pantera Phillips MD Preliminary Report By: Pantera Phillips MD Electronically signed By Pantera Phillips MD Dictated Date: 05/02/2024 1:24:13 PM Prelim Date: 05/02/2024 1:27:50 PM Sign Date: 05/02/2024 1:27:50 PM Ordering Provider: [facility]01-19-2025 Note Date of Service 05/02/24 Subjective 68-year-old male with a past medical history consistent with right upper lobe lung nodule s/p Bx 2023 reportedly benign, nephrectomy and chronic kidney disease stage 3 unspecified whether a or b, COPD, essential hypertension, dyslipidemia, coronary artery disease without angina, CLL, obstructive sleep apnea, GERD, DVT/PE with presence of IVC filter, and atrial fibrillation the presents for chief complaint of shortness of breath. Patient recently obtained pneumococcal vaccination. Increased shortness of breath and malaise led to ER presentation. Of note had bilateral ear tubes placed 04/27 by ENT and had been on antibiotic ear drops with plan to continue until 05/04. Tachycardic, tachypnea on arrival w/ low o2 requirement. WBC 24, hg 8.6, Cr 2 initially, BUN 36. CXR rt sided PNA, started on IV antibiotics. No new complaints today. Objective Vitals and Measurements T: 36.5 C (Oral) TMIN: 36.3 C (Oral) TMAX: 37.7 C (Oral) HR: 87 RR: 18 BP: 117/62 SpO2: 99% HT: 177.8 cm WT: 85.9 kg BMI: 27.17 Intake and Output 7AM Yesterday to 7AM Today Intake and Output (Last 24 hours) Intake Oral Intake 180.00 Output Urine Voided 950.00 Stool Count 2.00 Urine Count 1.00 Total Summary Total Intake 180.00 Total Output 950.00 Fluid Balance -770.00 Physical Exam on 3L NC not in distress speaking in full sentences. Weight Dosing Weight: 85.9 kg (05/02/24) Medications Medications (19) Active Scheduled: (13) albuterol - ipratropium 2.5 mg-0.5 mg/3 mL Inhal Marianela UD 3 mL, Inhalation, TIDRT azithromycin IV 500 mg 5 mL, IV Piggyback, qDay budesonide 0.5 mg/2 mL Susp UD 0.5 mg 2 mL, Inhalation, BIDRT cefTRIAXone IVP syringe 2 gram(s) 20 mL, IV Push (INT), qDay escitalopram 5 mg tablet 5 mg 1 tab(s), Oral, qDay esomeprazole [address] capsule 40 mg 1 cap(s), Oral, qDayAC guaifenesin 600 mg ER 600 mg 1 tab(s), Oral, BID hydroxyurea 500 mg capsule 1,500 mg 3 cap(s), Oral, Fri//Fri//Fri/Sat magnesium oxide 400 mg Tablet 800 mg 2 tab(s), Oral, qDay metoprolol succinate 100 mg ER tablet 100 mg 1 tab(s), Oral, qDay ofloxacin OTIC 0.3% Solution 5 mL 5 drop(s), Ear, both, BID predniSONE 20 mg tablet 40 mg 2 tab(s), Oral, qDayM rivaroxaban 10 mg tablet 10 mg 1 tab(s), Oral, qHS Continuous: (0) PRN: (6) acetaminophen 325 mg Tablet 650 mg 2 tab(s), Oral, q4h albuterol - ipratropium 2.5 mg-0.5 mg/3 mL Inhal Marianela UD 3 mL, Inhalation, q4hRT albuterol 0.083% Soln UD (2.5mg/3 mL) 2.5 mg 3 mL, Inhalation, q2hRT dextrose 50% Solution Disp syringe 50 mL 12.5 gram(s) 25 mL, IV Push, AsDirected HYDROmorphone 0.5 mg/0.5 mL syringe 0.25 mg 0.25 mL, IV Push, q3h ondansetron 2 mg/ 1 mL 2 mL INJ 4 mg 2 mL, IV Push, q4h Lab Results 05/02 00:55 WBC: 24.0 H Hgb: 8.6 L Hct: 26.0 L Platelet: 260 Glucose Level: 127 H Sodium Level: 139 Potassium Level: 3.9 BUN: 28.0 H Creatinine Lvl (s): 1.60 H EKG Electrocardiogram (EKG) - InProcess -- 05/02/24 6:00:00 EST Assessment/Plan Orders: ofloxacin otic(ofloxacin 0.3% otic solution), 5 drop(s), Ear, both, BID predniSONE, 40 mg= 2 tab(s), Oral, qDayM rivaroxaban(Xarelto), 10 mg= 1 tab(s), Oral, qHS -Sepsis due to Right sided pneumonia Tachypnea 22, tachycardic 122 on arrival w/ leukocytosis 17. PSI atleast 150. Lactic acid 1.4. Sepsis was present on admission. Ceftriaxone and azithro, f/u atypicals. O2 support. Pulm following. CT ordered to follow up also onprior lung nodule. SD level of care for now d/t severity of illness. BCx NGTD. He did just have his pneumonia vaccine. -COPD exacerbation Steroids weaned to oral. Continue nebs. -History of Pulmonary nodule s/p bx outside facility w/ reported subsequent CT scan noting improving Repeat CT pending. Will f/u results. D/w dr. aguiar. -Afib on xarelto He had held xarelto initially for bilateral ear tube placement then resumed it on 04/28. No active bleeding. No plan for bx. -Presence of IVC filter History of bilateral tympanic membrane tubes placed 04/27 by ENT -Bilateral tympanic membrane tube placement 04/27 on antibiotic ear drops Ordered abx ear drops. Originally he was planned to be on these abx until 05/04. -Anxiety and Depression escitalopram -CLL Hydroxyurea -Chronic diarrhea He has ongoing diarrhea which has been a problem for several months. He will be following up with GI soon outpatient. D/w pt and daughter at length. Level of Care Indication SD monitor (other: specify in note) clinical concern DVT Prophylaxis Full anticoagulation Maintenance IVF Indication NA / No maintenance IVF Indwelling Urinary Catheter Indication NA No indwelling catheter Anticipated Timeline of Discharge 24 hours Anticipated DC Disposition Home without services Digitally Signed by KRISTIN MAC MD on 05/02/2024 12:[address] [id number] Pulmonary Consult note Date of Service 05/02/2024 Reason for Consultation Lung mass Referring Physician Dr. Kenneyd History of Present Illness The patient is a 68-year-old gentleman who presents for evaluation of shortness of breath. He states yesterday he was quite weak and could not get out of bed. In the emergency room, the patient underwent a chest x-ray that showed a right- sided infiltrate and diagnosis of pneumonia and exacerbation of COPD was made. He was started on oxygen, steroids, and antibiotics and admitted. The patient has a complex past medical history. This includes history of CLL currently on hydroxyurea, as well as history of right lung mass diagnosed 2023. CT of the chest from shows a 5 cm mass in the right upper lobe posterior segment. The patient states that he did undergo needle biopsyof this and was told that it is not malignant and could be related to his leukemia. No specific therapy was offered. In addition, the patient has history of left femur fracture about 2 years ago complicated by pulmonary embolism requiring IVC filter placement. He is maintained on anticoagulation with Xarelto. Xarelto is on hold for the last few days due to placement of ear tubes. The patient has history of COPD. He is a reformed smoker. In addition, he has history of peripheral vascular disease involving the right lower extremity, coronary artery disease status post stent placement at [facility] few years ago, and history of right nephrectomy due to cancer with chronic kidney disease resulting from that. The patient isvery knowledgeable about his past medical history. He gets most of his care at [place]. Review of Systems Otherwise, no GI or symptoms. No loss of consciousness. Generalized weakness. Physical Exam Vitals and Measurements T: 36.3 C (Oral) TMIN: 36.3 C (Oral) TMAX: 37.7 C (Oral) HR: 91 (Apical) RR: 18 BP: 116/64 SpO2: 93% HT: 177.8 cm WT: 85.9 kg BMI: 27.17 Weight Dosing Weight: 85.9 kg (05/02/24) This is a pleasant 68-year-old by gentleman who does not appear to be in acute distress. He is on nasal oxygen. Hard of hearing. Neck supple without lymphadenopathy chest is symmetrical. Lungs with diminished breath sounds bilaterally. Few inspiratory crackles on the right. Heart is regular. Abdomen soft and minimally tender in the right lower quadrant. No rebound or rigidity or masses. Extremities with no edema clubbing or cyanosis or skin rash. Neurologically nonfocal. Lab Results 05/02 00:55 WBC: 24.0 H Hgb: 8.6 L Hct: 26.0 L Platelet: 260 Glucose Level: 127 H Sodium Level: 139 Potassium Level: 3.9 BUN: 28.0 H Creatinine Lvl (s): 1.60 H Imaging Results and Diagnostics Chest x-ray shows a right-sided infiltrate. CT scan of the chest was reviewed from 05/05/2023. A 5 cm mass is noted in the posterior segment right upper lobe. No mediastinal adenopathy or pleural effusions are noted. Some thickening of the pleura is noted. This mass was not present on the CT from December 2022 Assessment/Plan 1. Hypoxic respiratory failure 2. Right-sided infiltrates suspicious for CAP 3. History of COPD. Mild acute exacerbation diagnosed in ER 4. History of right lung mass early 2023. Patient did undergo IR biopsy >> not malignant per patient 5. History of DVT/PE 2021 following left femur fracture. S/p IVC filter placement. On chronic AC 6. History of CLL on hydroxyurea. Right nephrectomy due to CA with CKD. PVD. CAD post PCI Recommendations: 1. Agree with CT scan of the chest. Will change to noncontrast chest CT given renal failure 2. Agree with DuoNeb and budesonide aerosols 3. Continue antibiotics. Urine serologies for pneumonia 4. Okay to continue Solu-Medrol 5. Recommend adding anticoagulation or at least DVT prophylaxis Further recommendations to follow Procedure/Surgical History Nephrectomy Large bowel PTCA - Percutaneous transluminal coronary angioplasty Stent Medications Inpatient azithromycin IV Dextrose 50% IV Push, 12.5 gram(s)= 25 mL, IV Push, AsDirected, PRN Dilaudid, 0.25 mg= 0.25 mL, IV Push, q3h, PRN DuoNeb, 3 mL, Inhalation, q4hRT, PRN DuoNeb, 3 mL, Inhalation, TIDRT escitalopram, 5 mg= 1 tab(s), Oral, qDay esomeprazole, 40 mg= 1 cap(s), Oral, qDayAC guaiFENesin 600 mg oral tablet, extended release, 600 mg= 1 tab(s), Oral, BID Hydrea, 1500 mg= 3 cap(s), Oral, Fri//Fri//Fri/Fri magnesium oxide, 800 mg= 2 tab(s), Oral, qDay metoprolol succinate 100 mg oral TABLET extended release, 100 mg= 1 tab(s), Oral, qDay Proventil (2.5 mg/3 mL) inhalation solution, 2.5 mg= 3 mL, Inhalation, q2hRT, PRN Pulmicort Respules 0.5 mg/2 mL inhalation suspension, 0.5 mg= 2 mL, Inhalation, BIDRT Rocephin, 2 gram(s)= 20 mL, IV Push (INT), qDay SOLU-Medrol 125 mg pf injection, 60 mg= 0.96 mL, IV Push, q8h Tylenol, 650 mg= 2 tab(s), Oral, q4h, PRN Zofran, 4 mg= 2 mL, IV Push, q4h, PRN Home calcitriol 0.25 mcg oral capsule, 50 mcg, Oral, qDay calcium (as carbonate) 600 mg oral tablet, 600 mg= 1 tab(s), Oral, qDay cyclobenzaprine 10 mg oral tablet, 10 mg= 1 tab(s), Oral, TID, PRN escitalopram 5 mg oral tablet, 5 mg= 1 tab(s), Oral, qDay ferrous sulfate, Unknown Strength (NEEDS CLARIFIED) hydroxyurea 500 mg oral capsule, 1500 mg= 3 cap(s), Oral, qDay magnesium oxide 400 mg oral tablet, 800 mg= 2 tab(s), Oral, qDay Metoprolol Succinate ER 100 mg oral TABLET extended release, 100 mg= 1 tab(s), Oral, qDay omeprazole 40 mg oral delayed release capsule, 40 mg= 1 cap(s), Oral, qDay Vitamin C, 2000 mg, Oral, qDay zolpidem 10 mg oral tablet, 10 mg= 1 tab(s), Oral, qHS, PRN Allergies doxycycline penicillin Social History Alcohol Use: Past., 12/19/2022 Substance Abuse Use: Current. Type: Marijuana., 12/19/2022 Tobacco Nicotine Use: 10 or more cigarettes (1/2 pack or more)/day in last 30 days. Type: Cigarettes., 12/19/2022 Family History Family history is unknown Immunizations No qualifying data available. Digitally Signed by JEYSON AGUIAR MD on 05/02/2024 11:[address] [id number] Respiratory therapy Hospital Progress note Respiratory Therapy Evaluation Entered On: 05/02/2024 7:24 EST Performed On: 05/02/2024 7:24 EST by Cherri Hurt RT Respiratory Therapy Evaluation Respiratory Evaluation Triage Score : (6-10) Freq: TIDRT & Albuterol Q2hRT prn RT Assessment [Frequency/Schedule] : No changes required Cherri Hurt RT - 05/02/2024 7:28 EST Surgical Status : No surgery Chest X-Ray : Chronic radiological changes Respiratory Pattern (RT) : RR 10-20 BPM, Regular pattern Breath Sounds (RT) : Diminished due to poor inspiratory effort Cough (RT) : Weak, non-productive Level of Activity : Ambulatory with assistance Mental Status : Alert, oriented and cooperative Respiratory Therapy Evaluation Score : 7 RT Evaluation Steps : Chart review completed, Assessment completed: RR, HR, Auscultation, Cough, Patient Interview completed Pulmonary Status : Current smoker Cherri Hurt RT - 05/02/2024 7:26 EST Digitally Signed by Cherri Hurt RT on 05/02/2024 07:[address] [facility] [id number] Note. MICRO - Microbiology PROCEDURE: Legionella Urine Ag [*1] SOURCE: Urine BODY SITE: COLLECTED DATE/TIME: 05/02/2024 05:15 EST RECEIVED DATE/TIME: 05/02/2024 06:08 EST START DATE/TIME: 05/02/2024 06:08 EST FREE TEXT SOURCE: FINAL REPORTS Final Report [] Verified Date/Time/Personnel: 05/02/2024 06:26 EST Presumptive negative for L. pneumophila serogroup 1 antigen in urine, suggesting no recent or current infection. Legionnaire's disease cannot be ruled out since other serogroups and species may also cause disease. Performing Locations *1: This test was performed at: [address], [address] , [facility] [id number] Note. MICRO - Microbiology PROCEDURE: Streptococcus Pneumoniae Urine Antig [^1 *1] SOURCE: Urine BODY SITE: COLLECTED DATE/TIME: 05/02/2024 05:15 EST RECEIVED DATE/TIME: 05/02/2024 06:08 EST START DATE/TIME: 05/02/2024 06:08 EST FREE TEXT SOURCE: FINAL REPORTS Final Report [] Verified Date/Time/Personnel: 05/02/2024 06:26 EST Presumptive negative for pneumococcal pneumonia, suggesting no current or recent pneumococcal infection. Infection due to Strep pneumoniae cannot be ruled out since the antigen present in the sample may be below the detection limit of the test. Interpretive Data ^1: Streptococcus Pneumoniae Urine Antig This test has not been evaluated on patients taking antibiotics for greater than 24 hours or on patients who have recently completed an antibiotic regimen. The accuracy of this test has not been proven in young children. Performing Locations *1: This test was performed at: [address], [address]- , [facility] [id number] Note* Exam Date Time Procedure Performing Provider Status 05/02/24 5:19 AM Electrocardiogram - EKG - CV YASHIRA FORD MD; Auth (Verified) ECG Final Report Sinus rhythm Left anterior fascicular block Consider anterior infarct Electronic Signature: YASHIRA FORD MD 05/02/2024 20:37:[address] [facility] [id number] Respiratory therapy Hospital Progress note Respiratory Therapy Evaluation Entered On: 05/02/2024 2:55 EST Performed On: 05/02/2024 2:53 EST by Raine Tinajero RRT Respiratory Therapy Evaluation RT Evaluation Steps : Chart review completed, Assessment completed: RR, HR, Auscultation, Cough Respiratory Evaluation Triage Score : (6-10) Freq: TIDRT & Albuterol Q2hRT prn RT Assessment [Frequency/Schedule] : Triage score 6-10, change frequency to TIDRT and Albuterol Q2hRT PRN per protocol Raine Tinajero FORGE HELPER - 05/02/2024 2:56 EST Pulmonary Status : Current smoker Surgical Status : No surgery Chest X-Ray : Infiltrates or atelectasis in more than one lobe or rib fractures Respiratory Pattern (RT) : RR 10-20 BPM, Regular pattern Breath Sounds (RT) : Clear to auscultation Cough (RT) : Weak, non-productive Level of Activity : Ambulatory with assistance Mental Status : Alert, oriented and cooperative Respiratory Therapy Evaluation Score : 8 Raine Tinajero FORGE HELPER - 05/02/2024 2:53 EST Digitally Signed by Raine Tinajero FORGE HELPER on 05/02/2024 02:53 AM Digitally Signed by Raine Tinajero FORGE HELPER on 05/02/2024 02:[address] [facility] [id number] History and physical note Date of Service May 02, 2024 Chief Complaint Shortness of breath History of Present Illness This is a 68-year-old male with a past medical history consistent with chronic kidney disease, COPD, previous nephrectomy, hypertension, dyslipidemia, coronary artery disease, CLL, obstructive sleep apnea, GERD, DVT/PE, and chronic atrial fibrillation the presents for chief complaint of shortness of breath. Patient recently obtained pneumococcal vaccination, suddenly developed shortness of breath afterwards. Came to the [facility] ED for further evaluation. It should be noted should be noted the patient had a April 2023 CT of the that demonstrated lung mass, patient states that he has had this evaluated but there are no records readily available, interval x-ray chest report noted need for repeat CT. Pertinent labs, CBC with WBC of 24, Hgb of 8.6. CMP with serum creatinine 1.6. Lactic acid and troponin were within normal limits. Patient was flu, COVID, RSV negative. CXR performed revealed evidence of right mid, lower lung field opacities concerning for pneumonia. Ordered, pending. Given azithromycin and Rocephin in the ED. Pertinent labs,, Tmax of 37.7, patient on 3 L nasal cannula saturating at 93%. Otherwise vital signs are stable. Patient denies active CP, abdominal pain, NVD. Review of Systems Complete detailed review of systems obtained and all pertinent positives and negatives are noted inthe history of present illness. Physical Exam Vitals and Measurements T: 37.7 C (Oral) HR: 98 RR: 18 BP: 126/67 SpO2: 93% No qualifying data available. Physical Examination General: No apparent distress. Alert and appropriate. HEENT: NCAT EOMI Neck: Supple. No appreciable elevation in JVP. Cardiovascular: S1 S2 normal. No extra-audible heart tones. Respiratory: Bilaterally clear breath sounds with no crepitation or wheeze. Abdominal: Soft, nontender and nonrigid. No guarding. Bowel sounds present. Extremities: No edema. Adequate peripheral circulation. Neurological: Grossly intact without focal deficit. Cerebellar function preserved. Skin: Intact. Dry. No rash. Lab Results No 36 Hour Lab Data Imaging Results and Diagnostics IMPRESSION: April 2023 CT thorax 1. There is no consolidation or pleural [...] sampling may be useful for further evaluation. CXR, right mid, right lower lobe infiltrates concern for pneumonia. Redemonstration of known lung mass, repeat CT recommended. EKG Ordered, pending. Assessment/Plan Right lower lobe pneumonia Acute hypoxic respiratory failure COPD exacerbation Lung mass Leukocytosis in setting of pneumonia, CLL CIRA Status post nephrectomy Hypertension Hyperlipidemia CAD CKD Anemia Patient was admitted to stepdown for management of multiple medical issues including acute hypoxic respiratory failure in the setting of a right lower lobe pneumonia, likely COPD exacerbation. Additionally, patient with a noted lung mass on April [address] thorax with contrast initiated given known lung mass in the past. It is unclear whether this has been investigated. Pulmonology is consulted, appreciate recommendations. Patient may requireIR guided lung biopsy. IV Rocephin, IV azithromycin initiated for right mid, right lower lobe pneumonia. De-escalate antibiotics as able. Urinary antigens and respiratory culture ordered, pending. 125 mg IV Solu-Medrol initiated, continue 60 mg every 8 hour IV Solu-Medrol the floor. As needed and scheduled DuoNebs. Wean nasal cannula oxygen therapy as tolerated. CBC and BMP ordered daily replete electrolytes as necessary. Patient with leukocytosis though has history of CLL. IV Dilaudid for pain control. IV Zofran for nausea control. Continue patient's home chronic medications pending pharmacy verification. The labs, the imaging, the EKG were personally reviewed this case. The case was personally discussed with the ED physician. DVT prophylaxis: SCDs Patient is full code Procedure/Surgical History Nephrectomy Large bowel PTCA - Percutaneous transluminal coronary angioplasty Stent Medications Home Medications (9) Active amLODIPine 5 mg oral tablet azithromycin 250 mg oral tablet calcitriol 0.25 mcg oral capsule cefdinir 300 mg oral capsule codeine-guaifenesin 10 mg-100 mg/5 mL oral syrup escitalopram 5 mg oral tablet fluticasone proprionate NASAL 50 mcg/ spray Metoprolol Tartrate 100 mg oral tablet zolpidem 10 mg oral tablet Allergies doxycycline penicillin Social History Alcohol Use: Past., 12/19/2022 Substance Abuse Use: Current. Type: Marijuana., 12/19/2022 Tobacco Nicotine Use: 10 or more cigarettes (1/2 pack or more)/day in last 30 days. Type: Cigarettes., 12/19/2022 Family History Family history is unknown Immunizations No qualifying data available. Code Status Code Status - Ordered -- 05/02/24 0:41:00 EST, Full Code, Constant Order Digitally Signed by THERESA KENNEDY DO on 05/02/2024 02:[address] [facility] [id number] Note* Exam Date Time Procedure Performing Provider Status 05/01/24 2:56 PM XR Chest 1 View PARRIS MAE MD; Auth (Verified) [id number] ORIGINAL EXAMINATION: ONE XRAY VIEW OF THE CHEST05/01/2024 2:57 pm COMPARISON: Chest CT 05/05/2023, no comparison chest radiograph HISTORY: ORDERING SYSTEM PROVIDED HISTORY: Reason for Exam: fever, pain or tachypnea, FINDINGS: Heart size and mediastinal contours are probably normal accounting for projection and rotation. There is no vascular congestion, pleural effusion or pneumothorax. Some deformities of the right lower ribs appear to be chronic. There is some asymmetric airspace type of opacity in the right mid and lower lung that is concerning for pneumonia or other pathology. The left lung seems to be clear. IMPRESSION: Some asymmetric right mid and lower lung infiltrates will require further evaluation. Previous CT also showed a right mid lung mass. If there is no interval surgery, CT of the chest may be appropriate to evaluate for that mass also. Interpreted by: Parris Mae MD Preliminary Report By: Parris Mae MD Electronically signed By Parris Mae MD Dictated Date: 05/01/2024 3:05:26 PM Prelim Date: 05/01/2024 3:07:49 PM Sign Date: 05/01/2024 3:07:49 PM Ordering Provider: NATASHA BERRY [facility]01-18-2025 Evaluation + Plan note Diagnostic Tests Pending * Culture Respiratory with Gram Stain 05/01/24 * Urine Culture 05/01/24 [facility] 12-07-2024 [facility] History of Present illness Narrative* Heaven Shelley, MAYITO - 01/01/2024 10:21 AM EDT Episode Visit Count: 3 Therapist [...] 1020 Heaven Shelley PTA documented [facility] History of Present illness Narrative* Андрей Mon, PT - 12/24/2023 1:24 PM EDT Images from the original note [...] Current prognosis is Good due to: current objec tive clinical presentation . He will benefit from continued skilled therapy services to meet the updated goals for this plan of care as noted below. Goals for Episode of Care: created on 11/20/23 through 01/15/24 Patient reported outcome of pain Interference will decrease T -score by a minimum of 5 points. [place] in home exercise program. Patient will demonstrate [...] Patient to be seen for Therapeutic exercise (37565), Neuromuscular re-education (09635), Therapeutic activities (32069), Gait Training (88078), Patient/Family/Caregiver Education PLAN FOR NEXT VISIT: Strength, Balance SUBJECTIVE: . Sold house and will likely be moving to [place] in 1 month. Compliant with HEP. Functional [...] - 2x4 A/P static stand 4: Quadruped Alt/[place] UE/LE Skilled Intervention: Skilled judgment used to assess appropriate program for balance and coordination activity. Billing Therapeutic Exercise Treatment Minutes: 25 Neuromuscular Re-Education Treatment Minutes: 15 Skilled Treatment Time Minutes (timed and untimed codes): 40 Total Session Time (minutes): 40 Session Start Time : 1235 Session Stop Time : 1315 Андрей Mon PT documented in this encounterGe[facility]08-23-2024 NoteHNO ID: [id number] Author: WILTON PALMA RN Service: ? Author Type: Registered Nurse Type: Progress Notes Filed: 12/05/2023 13:42 Note Text: [facility] Telephonic Outreach Provider Action/FYI Contacted for: Routine Telephonic Outreach Contact made with patient: No, unable to leave message. Wilton Palma RN December 05, 2023 1:36 [facility]08-23-2024 History of Present illness Narrative* Wilton Palma RN - 12/05/2023 1:36 PM EDT [facility] Telephonic Outreach Provider Action/FYI Contacted for: Routine Telephonic Outreach Contact made with patient: No, unable to leave message. Wilton Palma RN December 05, 2023 1:36 PM * Wilton Palma RN - 12/04/2023 12:00 PM EDT [facility] Telephonic Outreach Provider Action/FYI 11/03/23-11/15/23 [facility] Contacted for: Routine Telephonic Outreach Contact made with patient: No, unable to leave message. Will reattempt call Wilton Palma RN December 04, 2023 12:15 PM documented in this encounterGeorgetown [facility]al Hospital08-22-2024 NoteHNO ID: [id number] Author: WILTON PALMA RN Service: ? Author Type: Registered Nurse Type: Progress Notes Filed: 12/05/2023 13:42 Note Text: [facility] Telephonic Outreach Provider Action/FYI 11/03/23-11/15/23 [facility] Contacted for: Routine Telephonic Outreach Contact made with patient: No, unable to leave message. Will reattempt call Wilton Plama RN December 04, 2023 12:15 [facility]08-22-2024 NotePatient Outreach ([facility]) ADINA DAVID ([id number]) 1955 Date Time Provider Department 12/04/23 WILTON PALMA [facility] During your visit today, we recorded the following information about you: Wilton Palma RN 12/05/2023 1:42 PM Signed [facility] Telephonic Outreach Provider Action/FYI 11/03/23-11/15/23 [facility] Contacted for: Routine Telephonic Outreach Contact made with patient: No, unable to leave message. Will reattempt call Wilton Palma RN December 04, 2023 12:15 PM Wilton Palma RN 12/05/2023 1:42 PM Signed [facility] Telephonic Outreach Provider Action/FYI Contacted for: [...] 1 DOSE SUBCUTANEOUSLY ONCE EVERY MONTH - zhwexpuhirq-mbhwqudup-yjsigrfh (TRELEGY ELLIPTA) 100-62.5-25 mcg inhalation powder Inhale [...] unspecified chronicity, uns*12/01/2022 Coronary artery disease involving [place]*12/02/2022 Other emphysema (HCC) [J43.8] 12/02/2022 Chronic [...] 12/13/2022 Encounter Status:Closed by WILTON PALMA on 12/05/23[facility] History of Present illness Narrative* Андрей Mon, PT - 11/20/2023 6:29 PM EDT Program_ID:[id number] Access Code: [email or web address] URL: [email or web address] Date: 11-20-2023 Prepared By: Андрей Mon Program [...] weekly - 1 sets - 3 reps * Андрей Mon, PT - 11/20/2023 6:22 PM EDT Images from the original note [...] -score by a minimum of 5 points. [place] in home exercise program. Patient will demonstrate [...] Planned: 8 Planned Treatment Interventions: Therapeutic exercise (25904), Neuromuscular re- education (85767), Therapeutic activities (81369), Gait Training (41698), Patient/Family/Caregiver Education PLAN FOR NEXT VISIT: Strength, Balance Patient demonstrates good understanding of plan of care and treatment. The above goals and plan of care were discussed and agreed upon by patient/family. SUBJECTIVE: Having right ear issues since 10/16/23. Originally dx w/ mastoiditis. Went to ER 10/28 andadmitted w/ TIA. Functional Limitations: walking, physical activities, [...] and reviewed HEP* Access Code: [email or web address] URL: [email or web address] Date: 11/20/2023 Prepared by: Андрей Mon Exercises [...] Time : 1802 Session Stop Time : 1847 Андрей Mon PT documented in this encounterGe[facility]07-31-2024 [facility] Instructions* Patient Instructions* Hortencia Gallardo MD - 11/12/2023 11:26 AM EDT Magnesium supplement that doesn't cause diarrhea [email or web address] Phosphorus/calcium/vitamin D supplement [email or web address] documented in this encounterGeorgetown [facility]al Hospital07-31-2024 History of Present illness Narrative* Hortencia Gallardo MD - 11/12/2023 11:00 AM EDT SMALL BOWEL DISEASES AND NUTRITION FOLLOW-UP VISIT Date of direct communication: 11/12/2023 Assessment IMPRESSION: Adina David is a 66 [...] 3 months Hortencia Gallardo MD 11/12/2023 Staff Mail Delivery Supervisor, [facility] [place] PRIMARY PROBLEM: iron def anemia, small bowel AVM's INTERVAL HISTORY: -Last seen -Ongoing iron deficiency anemia, ferritin 18 Hgb 9.5 last month -Received 3 iron infusions since then -No kori blood in the stool -Currently admitted to [facility] - Hgb 9.7 currently -Had pneumonia [...] SUBCUTANEOUSLY ONCE EVERY MONTH 2 mL 0 ipwtwhjfekj-mwuizjumz-iyxpxnqn (TRELEGY ELLIPTA) 100-62.5-25 mcg inhalation powder Inhale 1 Puff asinstructed once daily. (Patient not taking: Reported on [...] studies. Capsule study 2019: 1st gastric image: duodenal image: 36 cecal image:does not reach the cecum in 13 hours and 19 minutes GET: SBTT:n/a TTT: 17 Prep: Fair Gastric images are limited. [...] examination, documentation, and co- ordination of care. I have communicated my name and active licensure. The patient's identity and physical location wereverified at the time of this visit. Either the patient or their legal admissions representative has been informed of the risks and benefits of -- and alternatives to -- treatment through a remote evaluation andconsents to proceed with the evaluation remotely. Patient consented to video visit. documented in this encounterGe[facility]07-31-2024 NoteHNO ID: [id number] Author: HORTENCIA GALLARDO MD Service: ? Author Type: Physician Type: Progress Notes Filed: 11/12/2023 12:13 Note Text: SMALL BOWEL DISEASES AND NUTRITION FOLLOW-UP VISIT Date of direct communication: 11/12/2023 Assessment IMPRESSION: Adina David is a 66 [...] 3 months Hortencia Gallardo MD 11/12/2023 Staff Mail Delivery Supervisor, [facility] [place] PRIMARY PROBLEM: iron def anemia, small bowel AVM's INTERVAL HISTORY: -Last seen -Ongoing iron deficiency anemia, ferritin 18 Hgb 9.5 last month -Received 3 iron infusions since then -No kori blood in the stool -Currently admitted to [facility] - Hgb 9.7 currently -Had pneumonia [...] SUBCUTANEOUSLY ONCE EVERY MONTH 2 mL 0 hufdmdbansd-hbbcukoau-iddqyhho (TRELEGY ELLIPTA) 100-62.5-25 mcg inhalation powder Inhale [...] The examination was ot (more content not included)...[facility]07-22-2024 [facility] NoteHNO ID: [id number] Author: WILTON PALMA RN Service: ? Author Type: Registered Nurse Type: Progress Notes Filed: 10/28/2023 13:24 Note Text: CDM Telephonic Outreach Provider Action/FYI CDM: CKD Left a message to verify symptom status, instructed to contact PCP for condition changes and needs. Goals updated Contacted for: Routine Telephonic Outreach Contact made with patient: No, left message. Wilton Palma RN October 28, 2023 1:17 [facility]07-16-2024 History of Present illness Narrative* Wilton Palma RN - 10/28/2023 1:17 PM EDT CDM Telephonic Outreach Provider Action/FYI CDM: CKD Left a message to verify symptom status, instructed to contact PCP for condition changes and needs. Goals updated Contacted for: Routine Telephonic Outreach Contact made with patient: No, left message. Wilton Palma RN October 28, 2023 1:17 PM * Wilton Palma RN - 10/27/2023 11:32 AM EDT CD Telephonic Outreach Provider Action/FYI CDM: CKD Called Pt to verify symptoms and needs, line was busy, unable to leave a message, Mail box was full Contacted for: Routine Telephonic Outreach Contact made with patient: No, unable to leave message. Will reattempt call Wilton Palma RN October 27, 2023 11:32 AM * Wilton Palma RN - 10/24/2023 12:25 PM EDT CD Telephonic Outreach Provider Action/FYI CDM: CKD Called Pt to verify symptoms and needs, line was busy, unable to leave a message, Mail box was full Goals updated Contacted for: Routine Telephonic Outreach Contact made with patient: No, unable to leave message. Will reattempt call Wilton Palma RN October 24, 2023 1:07 PM documented in this encounterGe[facility]07-[facility]-2024 NoteHNO ID: [id number] Author: WILTON PALMA RN Service: ? Author [...] Wilton Palma RN October 27, 2023 11:32 [facility]07-12-2024 NoteHNO ID: [id number] Author: WILTON PALMA RN Service: ? 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 States that he co ntinues to have productive cough with green mucus. [...] cava filter placed 4 days ago due toDVT in lower extremity. Denies any complications from filter placement. Denies any neck swelling orneck pain. Review of Systems Constitutional: Negative for [...] tablet daily. ergocalciferol (Vitamin D2) 1.25 MG (36388 UT) capsule TAKE 1 CAPSULE BY MOUTH [...] kidney Right COPD (chronic obstructive pulmonary disease) ([facility]) Diverticulitis Fractures back,left shoulder Heartburn Hemorrhoid High [...] without difficulty. Managing secretions. No trismus. No muffledvoice. Clear PND noted. Neck: Cardiovascular: Rate and [...] 1. Take 250 mg on days 2 through5. Take as directed Wheezing Acute cough Right otitis media noted on exam. Patient continues to have productive cough and wheezing on exam. I recommended that he proceed to ER for further evaluation. Discussed that since he is not improvingwith oral antibiotics, he would likely benefit from [...] time. Will start azithromycin. Denies allergy to azithromycin.Educated on symptoms that warrant prompt ER visit such as increased/changing shortness of breath, increased wheezing, worsening cough, high fever, weakness, or any new/worsening symptoms. Vital signsstable, afebrile. Patient in no acute distress. Respirations even and unlabored. Patient educated on plan of care and verbalized understanding. Deysi Diop APRN - [place] 07/05/24 1:19 PM If symptoms do not improve, worsen, or new symptoms develop, see PCP for further evaluation. documented in this [facility]06-12-2024 History of Present illness Narrative* Hortencia Gallardo MD - 09/24/2023 4:00 PM EDT Patient was no-show for scheduled visit, sent links x2 and called to leave . He may reschedule his appointment. The following note was initiated in anticipation of his clinic visit. SMALL BOWEL DISEASES AND NUTRITION FOLLOW-UP VISIT Date of direct communication: 09/24/2023 Assessment IMPRESSION: Adina David is a 66 [...] time FOLLOW-UP: Hortencia Gallardo MD 09/24/2023 Staff Mail Delivery Supervisor, [facility] [place] PRIMARY PROBLEM: iron def anemia, small bowel [...] SUBCUTANEOUSLY ONCE EVERY MONTH 2 mL 0 trzajiozycb-llsjmsaqc-sgakvgiz (TRELEGY ELLIPTA) 100-62.5-25 mcg inhalation powder Inhale 1 Puff asinstructed once daily. (Patient not taking: Reported on [...] studies. Capsule study 2019: 1st gastric image:00 1st duodenal image: 17 36 1st cecal [...] examination, documentation, and co- ordination of care. I have communicated my name and active licensure. The patient's identity and physical location wereverified at the time of this visit. Either the patient or their legal admissions representative has been informed of the risks and benefits of -- and alternatives to -- treatment through a remote evaluation andconsents to proceed with the evaluation remotely. Patient consented to video visit. documented in this encounterGe[facility]06-12-2024 NoteHNO ID: [id number] Author: HORTENCIA GALLARDO MD Service: ? Author Type: Physician Type: Progress Notes Filed: 09/24/2023 16:32 Note Text: Patient was no-show for scheduled visit, sent links x2 and called to leave . He may reschedule his appointment. The following note was initiated in anticipation of his clinic visit. SMALL BOWEL DISEASES AND NUTRITION FOLLOW-UP VISIT Date of direct communication: 09/24/2023 Assessment IMPRESSION: Adina David is a 66 [...] time FOLLOW-UP: Hortencia Gallardo MD 09/24/2023 Staff Mail Delivery Supervisor, [facility] [place] PRIMARY PROBLEM: iron def anemia, small bowel [...] SUBCUTANEOUSLY ONCE EVERY MONTH 2 mL 0 gtrarupccox-gkgqtterg-belurrij (TRELEGY ELLIPTA) 100-62.5-25 mcg inhalation powder Inhale [...] - No additional small (more content not included)...[facility] 09-19-2023 Telephone encounter Note* Telephone Encounter - Fidencio Mon RN - 09/19/2023 3:15 PM EDT Discussed with Dr. Yuo to add pt 09/24/23 at 1600. Called pt to notify of sooner appt-no answer. Left VM with appt info. Fidencio Mon RN [facility]06-07-[facility] Miscellaneous Notes* Telephone Encounter - Fidencio Mon RN - 09/19/2023 3:15 PM EDT Discussed with Dr. You to add pt 09/24/23 at 1600. Called pt to notify of sooner appt-no answer. Left VM with appt info. Fidencio Mon RN * Telephone Encounter - Tereza Sunshine - 09/18/2023 11:51 AM EDT 09/18/23 Patient calling for sooner appt.ed nurse cannot help with sooner appts. She can see if she can recommend anything for his internal bleeding issue he is still having. Kip documented in this encounterGeorgetown [facility] Hospital06-06-2024 NoteHNO ID: [id number] Author: WILTON PALMA RN Service: ? Author Type: Registered Nurse Type: Progress Notes Filed: 09/18/2023 16:54 Note Text: CDM Telephonic Outreach Provider Action/FYI CDM: CKD Left a message to verify symptom status, instructed to contact PCP for condition changes and needs. Contacted for: Routine Telephonic Outreach Contact made with patient: No, left message. Wilton Palma RN September 18, 2023 4:53 [facility]06-06-2024 History of Present illness Narrative* Wilton Palma RN - 09/18/2023 4:53 PM EDT CDM Telephonic Outreach Provider Action/FYI CDM: CKD Left a message to verify symptom status, instructed to contact PCP for condition changes and needs. Contacted for: Routine Telephonic Outreach Contact made with patient: No, left message. Wilton Palma RN September 18, 2023 4:53 PM * Wilton Palma RN - 09/17/2023 5:10 PM EDT CDM Telephonic Outreach Provider Action/FYI CDM: CKD Left a message to verify symptom status, instructed to contact PCP for condition changes and needs. Contacted for: Routine Telephonic Outreach Contact made with patient: No, left message. Wilton Palma RN September 17, 2023 5:23 PM documented in this encounterGeorgetown [facility]06-06-2024 Telephone encounter Note * Telephone Encounter - Tereza Sunshine - 09/18/2023 11:51 AM EDT 09/18/23 Patient calling for sooner appt.ed nurse cannot help with sooner appts. She can see if she can recommend anything for his internal bleeding issue he is still having. Kip [facility]06-05-[facility]24 NoteHNO ID: [id number] Author: WILTON PALMA RN Service: ? Author Type: Registered Nurse Type: Progress Notes Filed: 09/18/2023 16:49 Note Text: CDM Telephonic Outreach Provider Action/FYI CDM: CKD Left a message to verify symptom status, instructed to contact PCP for condition changes and needs. Contacted for: Routine Telephonic Outreach Contact made with patient: No, left message. Wilton Palma RN September 17, 2023 5:23 [facility]06-05-2024 NotePatient Outreach ([facility]) ADINA DAVID ([id number]) 1955 M Date Time Provider Department 09/17/23 WILTON PALMA [facility] During your visit today, we recorded the [...] 1 DOSE SUBCUTANEOUSLY ONCE EVERY MONTH - zcoxlogkawy-wogpnkbub-duwdtfpd (TRELEGY ELLIPTA) 100-62.5-25 mcg inhalation powder Inhale [...] unspecified chronicity, uns*12/01/2022 Coronary artery disease involving [place] fal[place]*12/02/2022 Other emphysema (HCC) [J43.8] 12/02/2022 Chronic [...] insomnia [F51.01] 12/13/2022 [place] (more content not included)...[facility]04-30-2024 NoteHNO ID: [id number] Author: WILTON PALMA RN Service: ? Author Type: Registered Nurse Type: Progress Notes Filed: 08/12/2023 15:36 Note Text: CDM Telephonic Outreach Provider Action/FYI CDM: CKD Left a message to verify symptom status and needs. Instructed to call PCP with any symptom or condition changes. Contacted for: Routine Telephonic Outreach Contact made with patient: No, left message. Wilton Palma RN August 12, 2023 3:33 [facility] History of Present illness Narrative* Wilton Palma RN - 08/12/2023 3:33 PM EDT CDM Telephonic Outreach Provider Action/FYI CDM: CKD Left a message to verify symptom status and needs. Instructed to call PCP with any symptom or condition changes. Contacted for: Routine Telephonic Outreach Contact made with patient: No, left message. Wilton Palma RN August 12, 2023 3:33 PM * Wilton Palma RN - 08/11/2023 12:02 PM EDT CDM Telephonic Outreach Provider Action/FYI CDM: CKD Left a message to verify symptom status and needs. Instructed to call PCP with any symptom or condition changes. Contacted for: Routine Telephonic Outreach Contact made with patient: No, left message. Wilton Palma RN August 11, 2023 12:02 PM documented in this encounterGeorgetown [facility]04-29-2024 NoteHNO ID: [id number] Author: WILTON PALMA RN Service: ? Author Type: Registered Nurse Type: Progress Notes Filed: 08/12/2023 15:36 Note Text: CDM Telephonic Outreach Provider Action/FYI CDM: CKD Left a message to verify symptom status and needs. Instructed to call PCP with any symptom or condition changes. Contacted for: Routine Telephonic Outreach Contact made with patient: No, left message. Wilton Palma RN August 11, 2023 12:02 [facility]04-29-2024 NotePatient Outreach ([facility]) ADINA DAVID ([id number]) 1955 [place] Date Time Provider Department 08/11/23 WILTON PALMA [facility] During your visit today, we recorded the [...] 140 MG SUBCUTANEOUSLY ONCE EVERY MONTH - msqavqniuan-bdtycfodd-eiegojaq (TRELEGY ELLIPTA) 100-62.5-25 mcg inhalation powder Inhale [...] unspecified chronicity, uns*12/01/2022 Coronary artery disease involving [place] fal[place]*12/02/2022 Other emphysema (HCC) [J43.8] 12/02/2022 Chronic deep vein thrombosis (DVT) of proximal *12/02/2022 AVM (arteriovenous malformation) [Q27.30] 12/02/2022 History of gastrointestinal bleeding [Z87.19] 12/02/2022 Tachycardia [R00.0] 12/03/2022 Elevated troponin [R79.89] 12/03/2022 12/11/2022 Pulmonary nodules [R91.8] 12/05/2022 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 Approval good from 04/14/2023 through 07/24/2024. Lm on pt vm of rx approval. Rowdy Asher LPN * Telephone Encounter - Rowdy Asher LPN - 07/25/2023 11:34 AM EDT PA sent via [employer] domenic. Rowdy Asher LPN documented in this encounterGe[facility]04-04-2024 History of Present illness Narrative* Андрей Mon PT - 07/17/2023 9:27 AM EDT Episode Visit Count: 13 Therapist [...] 924 Андрей Mon PT documented in this encounterGeorgetown [facility]04-02-2024 History of Present illness Narrative* Kaleigh Mueller PTA - 07/15/2023 10:53 AM EDT Episode Visit Count: 12 Therapist [...] 30 x 3 6: diagonals 3.5 pl [id number] 7: Leg ext 20# 3x15 8: Nustep 6min L5 9: Stretchboard for calf and soleus [id number] 10: Leg press 80# 3x15 11: Mid row 4pl 3x15 12: Leg curl 35# 4w56-83 13: High row 5pl 2v27-23 14: Straight arm pull down 4pl 3x15 Skilled Intervention: Skilled judgment was used in selection of appropriate interventions. Billing Total Session Time (minutes): 45 Session Start Time : 1102 Session Stop Time : 1147 Kaleigh Mueller PTA documented in this encounterGeorgetown [facility] Hospital03-28-2024 NoteHNO ID: [id number] Author: WILTON PALMA RN Service: ? Author Type: Registered Nurse Type: Progress Notes Filed: 07/10/2023 15:48 Note Text: CDM Telephonic Outreach Provider Action/FYI CDM: CKD Left a message to verify symptom status, instructed to contact PCP for condition changes and needs. Contacted for: Routine Telephonic Outreach Contact made with patient: No, left message. Wilton Palma RN July 10, 2023 3:47 [facility]03-27-2024 NoteHNO ID: [id number] Author: WILTON PALMA RN Service: ? Author Type: Registered Nurse Type: Progress Notes Filed: 07/10/2023 15:48 Note Text: CDM Telephonic Outreach Provider Action/FYI CDM: CKD Left a message to verify symptom status, instructed to contact PCP for condition changes and needs. Contacted for: Routine Telephonic Outreach Contact made with patient: No, left message. Wilton Palma RN July 09, 2023 12:22 [facility]03-27-2024 NotePatient Outreach ([facility]) ADINA DAVID ([id number]) 1955 Date Time Provider Department 07/09/23 WILTON PALMA AM[facility] During your visit today, we recorded the [...] Outreach [Other] Prescriptions as of 07/10/2023 - brqprgmgmjj-mpkqawadx-cuosiykb (TRELEGY ELLIPTA) 100-62.5-25 mcg inhalation powder Inhale [...] unspecified chronicity, uns*12/01/2022 Coronary artery disease involving [place]*12/02/2022 Other emphysema (HCC) [J43.8] 12/02/2022 Chronic [...] Z*12/11/2022 Primary insomnia [F51.01 (more content not included)...[facility]03-21-2024 History of Present illness Narrative* Pantera Steiner, PT - 07/03/2023 2:17 PM EDT Images from the original note [...] of Care: created on 05/16/23 through 08/14/23 [place] in home exercise program. Patient will decrease [...] Patient to be seen for Therapeutic exercise (50205), Manual therapy (81027), Self-snf management (78273), Aquatic PT (55083), Patient/Family/Caregiver Education, Group Therapy (28933) PLAN FOR NEXT VISIT: Continue land PT SUBJECTIVE: LBP/LE weakness. He thinks he is getting stronger and calf is hurting less. He is stilllimited in how long he can stand/walk overall. [...] 30 x 3 6: diagonals 3.5 pl [id number] 7: Leg ext 20# 3x15 8: Nustep 7min L4 9: Stretchboard [id number] 10: Leg press 75# 3x15 11: Mid row 4pl 3x15 12: Leg curl 35# 3u04-38 13: High row 4pl 4j65-24 14: Straight arm pull down 4pl 3x15 [...] 1135 Pantera Steiner PT documented in this encounterGe[facility]03-19-2024 History of Present illness Narrative* Kaleigh Mueller PTA - 07/01/2023 10:28 AM EDT Episode Visit Count: 9 Therapist [...] with no issues. He demonstrated improvements in overallstrength. . The patient will continue to benefit [...] celso 8: Nustep 5min L4 9: Stretchboard [id number] 10: Leg press 70# 3x15 11: Mid row 4pl 3x10 12: Leg curl 30# 3j43-23 13: High row 4pl 8g54-75 Skilled Intervention: Skilled judgment was used in selection of appropriate interventions. Billing Total Session Time (minutes): 45 Session Start Time : 1000 Session Stop Time : 1045 Kaleigh Mueller PTA documented in this encounterGeorgetown [facility] Hospital03-14-2024 History of Present illness Narrative* Eileen Medrano PTA - 06/26/2023 9:37 AM EDT Episode Visit Count: 8 Therapist That [...] celso 8: Nustep 5min L4 9: Stretchboard [id number] 10: Leg press 70# 3x15 11: Mid row 4pl 3x10 12: Leg curl 30# 7p02-09 13: High row 4pl 8l13-79 Skilled Intervention: Patient was educated in proper exercise technique and purpose for exercises. Skilled judgment was used in selection of appropriate interventions. Correct performance of therapeutic exercises was facilitated with verbal and visual cuing. Billing Therapeutic Exercise Treatment Minutes: 40 Skilled Treatment Time Minutes (timed and untimed codes): 40 Total Session Time (minutes): 40 Session Start Time : 829 Session Stop Time : 909 Eileen Medrano PTA documented in this encounterGeorgetown [facility]al Hospital03-08-2024 History of Present illness Narrative* Pantera Steiner, PT - 06/20/2023 12:23 PM EST Episode Visit Count: 7 Therapist [...] standing and walking. He has progressed toward goals.Patient continues to present with impairments in gait, [...] of Care: created on 05/16/23 through 08/14/23 [place] in home exercise program. Patient will decrease [...] Patient to be seen for Therapeutic exercise (83984), Manual therapy (86533), Self-snf management (09940), Aquatic PT (39237), Patient/Family/Caregiver Education, Group Therapy (36011) PLAN FOR NEXT VISIT: Continue land PT [...] *[place] 8: Nustep 5min L4 9: Stretchboard [id number] 10: Leg press 70# 3x15 11: Mid row 4pl 3x10 12: Leg curl 30# 3e81-77 13: High row 4pl 9o70-75 Skilled Intervention: Patient was educated in proper [...] 1130 Pantera Steiner PT documented in this encounterGeorgetown [facility] Hospital02-22-2024 History of Present illness Narrative* Eileen Medrano PTA - 06/05/2023 2:18 PM EST Episode Visit Count: 5 Therapist [...] 1430 Eileen Medrano PTA documented in this encounterGeorgetown [facility] Hospital02-19-2024 History of Present illness Narrative* Eileen Medrano PTA - 06/02/2023 9:20 AM EST Episode Visit Count: 4 Therapist That Will [...] per flowsheet TREATMENT: Aquatic Therapy: Aquatic Therapy (01783): 10 1: Walk f/b/s 2: squats x [...] 924 Eileen Medrano PTA documented in this encounterGeorgetown Behavioral Hospital02-16-2024 History of Present illness Narrative* Heaven Shelley PTA - 05/30/2023 8:37 AM EST Episode Visit Count: 3 Therapist That [...] exercise and strength progression and challenge with balanceexercise. The patient will continue to benefit from ongoing skilled physical therapy to progress toward set goals. PLAN FOR NEXT VISIT: pool x 6 SUBJECTIVE: slip and fall on ice; fractured mid lumbar pedicle. He has LBP on lower R side. He usedpain meds. He uses heat. He hurts no matter what position he is in. He plans to travel to [place] in a few weeks. He has performed aquatic PT before and thought it would be helpful to get him moving without hurting more. He would also like to return to right fit class at gym. Patient reports fatigue after last visit but doing okay. Last visit was too early and didn't do as well. Goes to [employer] 2x/week. Has plans to go on vacation to [place] with dtr to visit friends Pain: Pain Pain Level: 3 Pain Location: Back Description: (R calf pain) OBJECTIVE MEASURES WITH LEVEL OF FUNCTION: TREATMENT: Aquatic Therapy: Footwear on pool deck pre-treatment: Yes, patient wearing appropriate footwear andappeared safe on pool deck Footwear on pool [...] 919 Heaven Shelley PTA documented in this encounterGeorgetown [facility]02-14-2024 History of Present illness Narrative* Kaleigh Mueller PTA - 05/28/2023 7:58 AM EST Episode Visit Count: 2 Therapist [...] has LBP on lower R side. He usedpain meds. He uses heat. He hurts no matter what position he is in. He plans to travel to [place] in a few weeks. He has performed aquatic PT before and thought it would be helpful to get him moving without hurting more. He would also like to return to right fit class at gym. Pain: Pain Pain Level: 5 Pain Location: Back OBJECTIVE MEASURES WITH LEVEL OF FUNCTION: Low stamina TREATMENT: Aquatic Therapy: Aquatic Therapy (82903): 8 1: walk 2: squats x10 3: [...] Time : 739 Session Stop Time : 0815 Kaleigh Mueller PTA documented in this encounterGeorgetown Behavioral Hospital02-13-2024 NoteHNO ID: [id number] Author: WILTON PALMA RN Service: ? Author Type: Registered Nurse Type: Progress Notes Filed: 06/02/2023 13:53 Note Text: CDM Telephonic Outreach Provider Action/FYI CDM: CKD Left a message to verify symptom status and needs. Instructed to call PCP with any symptom or condition changes. Contacted for: Routine Telephonic Outreach Contact made with patient: No, left message. Wilton Palma RN May 27, 2023 1:21 [facility]02-13-20[facility] History of Present illness Narrative* Wilton Palma RN - 05/27/2023 1:19 PM EST CDM Telephonic Outreach Provider Action/FYI CDM: CKD Left a message to verify symptom status and needs. Instructed to call PCP with any symptom or condition changes. Contacted for: Routine Telephonic Outreach Contact made with patient: No, left message. Wilton Palma RN May 27, 2023 1:21 PM documented in this encounterGeorgetown Behavioral Hospital02-13-2024 NotePatient Outreach ([facility]) ADINA DAVID ([id number]) 1955 M Date Time Provider Department 05/27/23 WILTON PALMA [facility] During your visit today, we recorded the [...] Outreach [Other] Prescriptions as of 06/02/2023 - ycfzeauhmox-sywfcxodl-lxslnfro (TRELEGY ELLIPTA) 100-62.5-25 mcg inhalation powder Inhale [...] unspecified chronicity, uns*12/01/2022 Coronary artery disease involving [place]*12/02/2022 Other emphysema (HCC) [J43.8] 12/02/2022 Chronic [...] 12/13/2022 Encounter Status:Closed by WILTON PALMA on 06/02/23[facility] History of Present illness Narrative* Pantera Steiner, PT - 05/16/2023 11:35 AM EST Episode Visit Count: 1 Therapist That Will [...] (Patient-Reported Outcomes Measurement Information System) scores were reviewedand physical function domain identified as a rehabilitation concern. Prognosis for therapy is Good due to: current objective clinical presentation, positive past response to therapy . He will benefitfrom skilled therapy services to meet the goals established for this plan of care as noted below. Goals for Episode of Care: created on 05/16/23 through 08/14/23 [place] in home exercise program. Patient will decrease pain rating by 2 points to meet minimal clinical important difference for numeric pain rating scale. Patient will increase active ROM of L spine to WFL to allow pt to to improve postural alignment andto improve performance of ADLs. Perform stand/walk 30 minutes without pain. Improve postural awareness. Patient Goals: resolve pain Planned Interventions, Frequency, and Duration: Current Frequency: 2x/week Duration: 6 weeks Total Number of Visits Planned: 12 Planned Treatment Interventions: Therapeutic exercise (44696), Manual therapy (33140), Self-snf management (05827), Aquatic PT (25330), Patient/Family/Caregiver Education, Group Therapy (08201) PLAN FOR NEXT VISIT: Initiate aquatic therapy [...] in. He plans to travel to [place] in a few weeks. He has performed aquatic PT before and thought it would be helpful to get him moving without hurting more. He would also like to return to right Diaferon class at gym. Patient Goals: resolve pain Functional Limitations: sitting, rising from a chair, standing, walking, physical activities, recreational activities, sleeping Prior Level of Function: Independent without limitations Relevant History Past Relevant Medical Conditions: Cancer, Hypertension, Falls, Blood Disorders, Covid Employment: Retired Recreation / Current Exercise: right Diaferon class-2x per week Intake Information: Prescription present [...] Time (minutes): 40 Session Start Time : 829 Session Stop Time : 909 Pantera Steiner PT [facility] Hospital Discharge instructions Patient Education 05/05/2023 23:40:33 [...] problems may need surgery. Many compression fractures mendon their own. Follow-up As you improve, you may be given exercises to strengthen your bones. If you have osteoporosis, yourhealthcare provider may prescribe a medicine to treat [...] break. Trauma from a car accident or hardfall can fracture even healthy vertebrae. In rare [...] back pain in a person with cancer 5757-9050 [employer]. [address] [place] [address]. All rights reserved. This information is not intended as a substitute for professional medical care. Always follow yourhealthcare professional's instructions. Follow Up Care 05/05/2023 20:55:19 With:ULISES RAMOS DO Address: [address] [place] [phone] When:2-4 days [facility] 01-22-2024 Note Discharge Instructions Thank you for allowing [facility] to assist you with your healthcare needs. The following is importantdischarge information regarding your hospital visit. Diagnosis from [...] give me. You have a transverse process fractureL1 and L2 No qualifying data available. Post Acute Orders No qualifying data available. You Need to Schedule the Following Appointments Follow Up with ULISES RAMOS DO When Within 2-4 days Where: [address] [place] [phone] Allergies doxycycline penicillin Medications Please ask your primary doctor or pharmacist before taking any other medication not listed, including over the counter drugs, herbal medications, vitamins and or supplements as they may interact withyour home medications. What How Much When Why Instructions Last Dose New acetaminophen-hydrocodone ([place] 325- 5 mg oral tablet) 1 tab(s) [...] SEET a MIN oh fen and dorota ignacio KOZachary done) Lortab Elixir, Verdrocet What is the [...] where to locate a drug take-back disposal program.If there is no take-back program, flush the unused medicine down the toilet. What happens if I miss a dose? Since this medicine is used for pain, you are not likely to miss a dose. Skip any missed dose if itis almost time for your next dose. Do [...] health department. Make sure any person caring foryou knows where you keep naloxone and how to use it. What should I avoid while taking acetaminophen and hydrocodone? Avoid driving or operating machinery until you know how this medicine will affect you. Dizziness ordrowsiness can cause falls, accidents, or severe injuries. [...] if you have slow breathing with long pauses,blue colored lips, or if you are hard to wake up. In rare cases, acetaminophen may cause a severe skin reaction that can be fatal. This could occur even if you have taken acetaminophen in the past and had no reaction. Stop taking this medicine and call your doctor right away if you have skin redness or a rash that spreads and causes blistering andpeeling. Call your doctor at once if you [...] may report side effects to FDA at 2-759-QDI-0558. What other drugs will affect acetaminophen and [...] affect acetaminophen and hydrocodone, including prescription and hucq-swa-dfnhnfw medicines, vitamins, and herbal products. Not all [...] to ensure that the information provided by [employer]. ('[employer]') is accurate, up-to-date, and complete, but no guarantee is made to that effect. Drug information contained herein may be time sensitive. [employer] information has been compiled for use by healthcare practitioners and consumers in the [place] and therefore [employer] does not warrant that uses outside of the [place] are appropriate, unless specifically indicated otherwise. [employer]'s drug information does not endorse drugs, diagnose patients or recommend therapy. [employer] drug information isan informational resource designed to assist licensed healthcare practitioners in caring for their p atients and/or to serve consumers viewing this service as a supplement to, and not a substitute for, the expertise, skill, knowledge and judgment of healthcare practitioners. The absence of a warningfor a given drug or drug combination in no way should be construed to indicate that the drug or drug combination is safe, effective or appropriate for any given patient. [facility] does not assume any responsibility for any aspect of healthcare administered with the aid of information [facility] provides. The information contained herein is not intended to cover all possible uses, directions, precautions, warnings, drug interactions, allergic reactions, or adverse effects. If you have questions about the drugs you are taking, check with your doctor, nurse or pharmacist. Copyright 5575-2394 [facility] [employer]. Version: 19.. Revision Date: 12/02/2022. Education Materials [...] problems may need surgery. Many compression fractures mendon their own. Follow-up As you improve, you may be given exercises to strengthen your bones. If you have osteoporosis, yourhealthcare provider may prescribe a medicine to treat [...] break. Trauma from a car accident or hardfall can fracture even healthy vertebrae. In rare [...] back pain in a person with cancer 4486-9472 [employer]. [address] [place] [address]. All rights reserved. This information is not intended as a substitute for professional medical care. Always follow yourhealthcare professional's instructions. Additional Information VACCINATE! IT SAVES LIVES! Members of the community who have not yet received the COVID-19 vaccine and would like to receive it can visit one of [facility] vaccine clinics. There are many vaccine clinic locations within the [facility]. For locations and available times, please visit www.gettheshot.coronavirus.[place].gov/. It is important to note that some COVID mobile vaccine clinics are held outdoors and may be canceled in rainy or stormy conditions. To learn more about pediatric vaccinations (ages 5-11), we invite you to visit the [facility] webpage. https://www.akronVostus.org/pages/4295-Mbpto-Zyscardjupw-Nzyppivspb-Kjxcq-Odo stions.htmlTo learn more about the COVID-19 vaccine, we invite you to visit the CDC website for a list of frequently asked questions. https://www.cdc.gov/coronavirus/2019-ncov/vaccines/faq.html [facility] Patient Portal Access Instructions: Stay connected with your healthcare team and access your personal medical information anytime with the [facility] Patient Portal. If you would like a full copy of your medical records please contact the [facility] Medical Records Department Friday through Friday between 8a.m. and 4:30p.m. Please follow the directions below to access the portal: 1.Access the email account you provided upon registration to the [facility].2.Look for an invitation email from [facility].3.Open the email and access the invitation link: Accept Invitation to [facility]4.Fill in the required morales to create your account. Sign into [email or web address].[email or web address] with your username and password that you [...] you will allow to register on the [facility] Patient Portal for access to your information. You can also access the [facility] Patient Portal on the [employer]il. Simply click on Health Records under [facility] [employer] and then click on the 2,10E+07 logo. HOW TO SAFELY DISPOSE OF PRESCRIPTION MEDICATIONS Please use one of the following methods to safely dispose of your unused medications. 1.Use a drug disposal kit: the drug disposal pouch allows you to safely discard your old and unuseddrugs. Ask your nurse to give you one when you are discharged.2.Visit a local take-back location: Many local pharmacies and police departments have programs that collect old and unwanted prescriptiondrugs. Call your local pharmacy or go to http://Peak.[employer] Loyalty System/6N5Aq2y to find one close to you.3.Make use of household items: Use cat litter or old coffee grounds to dispose medications if other options arenot available. Mix your drugs with these household products, seal them in an airtight container andthrow it into the garbage. Call [facility]: [phone] to be sure your drugs can be [...] drowsiness, such as benzodiazepines, also known as benzos,including diazepam and alprazolam, muscle relaxants or sleep aids. Never sell or share prescriptionopioids. This is illegal. Store opioids in a secure place and out of reach of others (including children, family, friends and visitors). The last page(s) of this document has been signed and retained as a CHART COPY Signatures Patient Education Materials Back Fracture (Compression Fracture) Medication Leaflets acetaminophen and hydrocodone My discharge plan and instructions have been reviewed and explained to me and I,ADINA DAVID understand my current condition and have read and understand these discharge instructions. I have received awritten copy of the plan/instructions. If I have questions, I am aware that I should contact my doctor. 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 Signature: Date/Time: Relationship to Patient: Witness Name/Signature: Date/Time: [facility]01-22-2024 Note ORIGINAL EXAMINATION: 3 XRAY VIEWS OF [...] Sign Date: 05/05/2023 11:15:21 PM [facility] Note ORIGINAL EXAMINATION: CT OF THE CERVICAL [...] Date: 05/05/2023 11:06:53 PM Ordering [facility] Note ORIGINAL EXAMINATION: CT OF THE HEAD [...] Sign Date: 05/06/2023 12:09:18 AM Ordering Provider: [facility]01-22-2024 Note ORIGINAL EXAMINATION: CT OF THE CHEST [...] Sign Date: 05/05/2023 11:20:44 PM Ordering Provider: [facility]01-12-2024 NoteHNO ID: [id number] Author: WILTON PALMA RN Service: ? Author Type: Registered Nurse Type: Progress Notes Filed: 04/25/2023 15:43 Note Text: CDM Telephonic Outreach Provider Action/FYI CDM: CKD Left a message to verify symptom status, instructed to call PCP with any changes in condition?or needs. Contacted for: Routine Telephonic Outreach Contact made with patient: No, left message. Wilton Palma RN April 25, 2023 3:42 [facility]01-10-2024 NoteHNO ID: [id number] Author: WILTON PALMA RN Service: ? Author Type: Registered Nurse Type: Progress Notes Filed: 04/25/2023 15:43 Note Text: CDM Telephonic Outreach Provider Action/FYI CDM: CKD Left a message to verify symptom status, instructed to call PCP with any changes in condition?or needs. Contacted for: Routine Telephonic Outreach Contact made with patient: No, left message. Wilton Palma RN April 23, 2023 5:21 [facility]01-10-2024 NotePatient Outreach (AMBCMG) FRANKIEADINA Sharma ([id number]) 1955 Date Time Provider Department 04/23/23 WILTON PALMA AMBG During your visit today, we recorded the [...] Outreach [Other] Prescriptions as of 04/25/2023 - ghtkijvkekv-jrucdpxfj-rtrdbxtp (TRELEGY ELLIPTA) 100-62.5-25 mcg inhalation powder Inhale [...] unspecified chronicity, uns*12/01/2022 Coronary artery disease involving [place] falcon*12/02/2022 Other emphysema (HCC) [J43.8] 12/02/2022 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[facility]12-04-2023 NoteHNO ID: [id number] Author: Wilton Palma RN Service: ? Author Type: Registered Nurse Type: Progress Notes Filed: 03/17/2023 12:39 PM Note Text: CDM Telephonic Outreach Provider Action/FYI CDM: CKD Left a message to verify symptom status, instructed to call PCP with any changes in condition?or needs. Contacted for: Routine Telephonic Outreach Contact made with patient: No, left message. Wilton Palma RN March 17, 2023 12:35 [facility] History of Present illness Narrative* Wilton Palma RN - 03/17/2023 12:35 PM EST CDM Telephonic Outreach Provider Action/FYI CDM: CKD Left a message to verify symptom status, instructed to call PCP with any changes in condition?or needs. Contacted for: Routine Telephonic Outreach Contact made with patient: No, left message. Wilton Palma RN March 17, 2023 12:35 PM * Wilton Palma RN - 03/12/2023 9:14 AM EST CDM Telephonic Outreach Provider Action/FYI CDM: CKD Left a message to verify symptom status, instructed to call PCP with any changes in condition?or needs. Contacted for: Routine Telephonic Outreach Contact made with patient: No, left message. Wilton Palma RN March 12, 2023 9:14 AM documented in this encounterGe[facility]11-29-2023 NoteHNO ID: [id number] Author: Wilton Palma RN Service: ? Author Type: Registered Nurse Type: Progress Notes Filed: 03/17/2023 12:39 PM Note Text: CDM Telephonic Outreach Provider Action/FYI CDM: CKD Left a message to verify symptom status, instructed to call PCP with any changes in condition?or needs. Contacted for: Routine Telephonic Outreach Contact made with patient: No, left message. Wilton Palma RN March 12, 2023 9:14 [facility]11-29-2023 NotePatient Outreach ([facility]BCMG) ADINA DAVID ([id number]) 1955 Date Time Provider Department 03/12/23 WILTON PALMA AM[facility] During your visit today, we recorded the [...] Outreach [Other] Prescriptions as of 03/17/2023 - uwckshkkcuw-bkzywqvnj-gkxxvbrk (TRELEGY ELLIPTA) 100-62.5-25 mcg inhalation powder Inhale [...] unspecified chronicity, uns*12/01/2022 Coronary artery disease involving [place] falcon*12/02/2022 Other emphysema (HCC) [J43.8] 12/02/2022 Chronic deep vein thrombosis (DVT) of proximal *12/02/2022 AVM (arteriovenous malformation) [Q27.30] 12/02/2022 History of gastrointestinal bleeding [Z87.19] 12/02/2022 Tachycardia [R00.0] 12/03/2022 Elevated troponin [R79.89] 12/03/2022 12/11/2022 Pulmonary nodules [R91.8] 12/05/2022 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 year old male patient with CAD s/p NH in 2019 with PCI to LAD Hypertension CKD stage III s/p nephrectomy GI bleed with arteriovenous malformation of colon CLL 6. CIRA 7. DVT/PE?: did not take anticoagulation: hospitalized on 11/2022 at [facility] for this, back in 12/2022 with pneumonia. Bacteremic at that point. 8. Abnormal event monitor: referred to us for this. Occasional palpitations. Patient referred to us for abnormal holter monitor. 48 hour Monitor November 2022 showed sinus rhythmwith average heart rate of 98 bpm with [...] oral, Daily ergocalciferol (Vitamin D-2) 1.25 MG (75621 UT) capsule escitalopram (LEXAPRO) 5 mg, oral, Daily fluticasone (Flonase) 50 mcg/actuation nasal spray 1 spray, Each Nostril, Daily aexrvtclbcj-egijoriah-elymrqdv (Trelegy Ellipta) 100-62.5-25 mcg blister with device [...] Rate 69 Height (in) 1.778 m (5' 10) Weight (lb) 187 BMI 26.83 kg/m2 BSA (m2) 2.05 m2 Visit Report Report Visit Vitals BP 163/88 Pulse 69 Ht 1.778 m (5' 10) Wt 84.8 kg (187 lb) BMI 26.83 [...] seen today. Overall he claims to be do ing 99% better. Denies any SOB or palpitations. [...] for a Watchman procedure. [facility] Work Phone: [phone] NoteHNO ID: [id number] Author: Note, Interface Service: ? Author Type: ? Type: Progress Notes Filed: 01/25/2023 2:22 AM Note Text: Epic Scheduled Downtime: 01/25/2023 1:00:00 AM to 01/25/2023 1:28:00 [facility]10-10-2023 Miscellaneous Notes* Telephone Encounter - Lucio Juan MA - 01/21/2023 2:58 PM EDT Fyi- called patient to schedule his follow up appt. Pt declined and states he is no longer following up with [facility] providers-mir documented in this encounterGe[facility]10-06-2023 Miscellaneous Notes* Telephone Encounter - Marielos Schwartz - 01/17/2023 9:15 AM EDT MRO faxed and placed in scanned bin documented in this encounterGeorgetown [facility]al Hospital10-04-2023 NoteHNO ID: [id number] Author: Wilton Palma RN Service: ? Author Type: Registered Nurse Type: Progress Notes Filed: 02/03/2023 6:20 PM Note Text: CD Telephonic Outreach Provider Samia/KIMO Spk with Pt he noted was Admitted to [facility] 12/01/22-12/11/22 he noted was not happy with care. he reported is firing all [facility] providers. Pt noted will have an ultrasound of his right leg today, attempted to assess for symptoms and care needs, but was unable, Pt states he is not unhappy or upset with Database Tester.but with the other providers. Contacted for: Routine Telephonic Outreach Contact made with patient: Yes Patient identified by name and date of . Discussed care with patient Are you experiencing any new or worsening symptoms you need to talk about today? Yes Wilton Palma RN January 15, 2023 11:51 [facility]10-04-2023 History of Present illness Narrative* Wilton Palma RN - 01/15/2023 11:27 AM EDT [facility] Telephonic Outreach Provider Samia/KIMO Vazquezk with Pt he noted was Admitted to [facility] 12/01/22-12/11/22 he noted was not happy with care. he reported is firing all [facility] providers. Pt noted will have an ultrasound of his right leg today, attempted to assess for symptoms and care needs, but was unable, Pt states he is not unhappy or upset with Database Tester.but with the otherproviders. Contacted for: Routine Telephonic Outreach Contact made with patient: Yes Patient identified by name and date of . Discussed care with patient Are you experiencing any new or worsening symptoms you need to talk about today? Yes Wilton Palma RN January 15, 2023 11:51 AM documented in this encounterGeorgetown Behavioral Hospital10-04-2023 NotePatient Outreach (AMBCMG) ADINA DAVID ([id number]) 1955 M Date Time Provider Department 01/15/23 WILTON PALMAChantelle During your visit today, we recorded the following information about you: Wilton Palma, RN 02/03/2023 6:20 PM Signed [facility] Telephonic Outreach Provider Samia/KIMO Vazquezk with Pt he noted was Admitted to [facility] 12/01/22-12/11/22 he noted was not happy with care. he reported is firing all [facility] providers. Pt noted will have an ultrasound of his right leg today, attempted to assess for symptoms and care needs, but was unable, Pt states he is not unhappy or upset with Database Tester.but with the other providers. Contacted for: Routine Telephonic Outreach Contact made with patient: Yes Patient identified by name and date of . Discussed care with patient Are you experiencing any new or worsening symptoms you need to talk about today? Yes Wilton Palma, MEHUL January 15, 2023 11:51 AM Allergies As of Date: 01/15/2023 Noted Allergy Reaction DOXYCYCLINE 07/17/2021 5 - Intolerance Comments: Rash, diarrhea PENICILLIN 02/22/2017 4 - Hives PENICILLIN V POTASSIUM 12/20/2021 14 - Other: See Comments Date Reviewed: 12/19/2022 Reviewed by: Halle Dale MD - Fully Assessed Reason for Visit: Community Monitoring Outreach [Other] Prescriptions as of 02/03/2023 - rgmsfatgdze-cdjdjfpxg-numfukbd (TRELEGY ELLIPTA) 100-62.5-25 mcg inhalation powder Inhale [...] unspecified chronicity, uns*12/01/2022 Coronary artery disease involving [place] falcon*12/02/2022 Other emphysema (HCC) [J43.8] 12/02/2022 Chronic deep vein thrombosis (DVT) of proximal *12/02/2022 AVM (arteriovenous malformation) [Q27.30] 12/02/2022 History of gastrointestinal bleeding [Z87.19] 12/02/2022 Tachycardia [R00.0] 12/03/2022 Elevated troponin [R79.89] 12/03/2022 12/11/2022 Pulmonary nodules [R91.8] 12/05/2022 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 [id number] Miscellaneous Notes* Telephone Encounter - Quentin Guidry RN - 01/10/2023 3:29 PM EDT Call transfer received from Roland Ureña said pt needs handicap placard ordered on 12/19/22 (pending) to be sent to [facility] via fax at the request of the [facility] admissions representative on the line then transferred the call over. Messaged material handling crew supervisor TRAVON Cooney if ok to send Placard order to [facility] at pt's request. Ivet said ok. Placard sent to [facility] at their fax number as requested. Quentin Guidry LPN documented in this encounterGeorgetown Behavioral Hospital09-22-2023 Miscellaneous Notes* Telephone Encounter - Quentin Guidry RN - 01/03/2023 4:03 PM EDT Pt needs rescheduled (Appointment date 03/05/23) due to Dr Halle Dale schedule change. Pt unavailableat home phone. Left message on BackupAgentmail for return call. Quentin Guidry LPN documented in this encounterGeorgetown Behavioral Hospital09-20-2023 NoteHNO ID: [id number] Author: Maddie White RN Service: ? Author Type: Registered Nurse Type: Progress Notes Filed: 01/01/2023 2:18 PM Note Text: TRANSITION CARE MANAGEMENT (TCM) FOLLOW-UP NOTE Provider Action/FYI Chart reviewed. Per chart notes for [facility], [facility] No further follow-up at this time. Summary: Pt discharged from [facility] on 12/11/22. Admitted for: SOB, fatigue-Chronic pulmonary embolism Signature Maddie White RN [facility] 01[facility] History of Present illness Narrative* Maddie White RN - 01/01/2023 2:15 PM EDT TRANSITION CARE MANAGEMENT (TCM) FOLLOW-UP NOTE Provider Action/FYI Chart reviewed. Per chart notes for [facility], [facility] No further follow-up at this time. Summary: Pt discharged from [facility] on 12/11/22. Admitted for: SOB, fatigue-Chronic pulmonary embolism Signature Maddie White RN January 01, 2023 documented in this encounterGeorgetown Behavioral Hospital09-20-2023 NotePatient Outreach (AMBCMG) ADINA DAVID ([id number]) 1955 M Date Time Provider Department 01/01/23 MADDIE WHITE During your visit today, we recorded the following information about you: Maddie White RN 01/01/2023 2:18 PM Signed TRANSITION CARE MANAGEMENT (TCM) FOLLOW-UP NOTE Provider Action/FYI Chart reviewed. Per chart notes for [facility], pt has been admitted to inpatient at [facility]. No further follow-up at this time. Summary: Pt discharged from [facility] on 12/11/22. Admitted for: SOB, fatigue-Chronic pulmonary [...] tablet by mouth daily at bedtime. - eejsrjcirmf-ebvmzdpxt-qxjgzhjg (TRELEGY ELLIPTA) 100-62.5-25 mcg inhalation powder Inhale [...] unspecified chronicity, uns*12/01/2022 Coronary artery disease involving [place]*12/02/2022 Other emphysema (HCC) [J43.8] 12/02/2022 Chronic [...] 12/13/2022 Encounter Status:Closed by MADDIE WHITE on 01/01/23[facility] 12-30-2022 Miscellaneous Notes* Telephone Encounter - Jenifer Lloyd LPN - 12/30/2022 11:27 AM EDT Halle Dale MD, [facility] received a referral for [facility] services. Frankie is currently inpatient at [facility]. At this time we will be canceling the referral. Thank you, Jenifer Lloyd LPN Central Admissions Intake Nurse documented [facility] this [facility]23 Miscellaneous Notes* Telephone Encounter - Marley Falk RD - 12/24/2022 12:04 PM EDT Received consult from Dr. Dale regarding patient's weight loss and poor appetite. Called and spoke to patient's daughter, who states patient is currently admitted to [facility] with the potential of being discharged to a rehab facility. I explained patient would be followed by an RD atrehab. Family is interested hot meal delivery if patient is able to go back home. Provided my contact information for daughter to follow up once patient is d/c from rehab. Marley Falk RD documented in this [facility]Ge[facility]09-11-2023 Miscellaneous Notes* Telephone Encounter - Sue Raygoza LPN - 12/23/2022 5:[address] Dale, Thank you for the referral for [facility]. In reviewing your office note, he is has respiratory symptoms that could use nursing intervention and on going assessment. Would you be agreeable to adding SN to the order as well as the diagnosis the CLL (chronic lymphocytic leukemia) (HCC)? Thank you, Sue Ryagoza LPN * Telephone Encounter - Sue Raygoza LPN - 12/20/2022 6:[address] Dale, Thank you for the referral for [facility]. In reviewing your office note, he is has respiratory symptoms that could use nursing intervention and on going assessment. Would you be agreeable to adding SN to the order as well as the diagnosis the CLL (chronic lymphocytic leukemia) (HCC)? Thank you, Sue Raygoza LPN documented in this encounterGeorgetown [facility]09-11-2023 Note. MICRO - Microbiology PROCEDURE: Blood Culture (bacterial) [...] Locations *1: This test was performed at: [address], [address] , [facility] ([place])12-23-2022 Note. MICRO - Microbiology PROCEDURE: Blood Culture (bacterial) [...] Locations *1: This test was performed at: [address], [id number]- , [facility] ([place])12-21-2022 Note. MICRO - Microbiology PROCEDURE: Urine Culture [*1] [...] Locations *1: This test was performed at: [facility], [address] [place] [address], [id number] , [facility] ([place])12-19-2022 History of Present illness Narrative* Halle Dale MD - 12/19/2022 5:34 PM EDT PROGRESS NOTE 12/18/2022 Chief Complaint: Mr. Adina David is here to follow up his hematological conditions (CLL, MPN, VTE, bleeding) Interval History: Here to follow up. Accompanied by daughter. He was recently hospitalized at [facility] due to acute respiratory failure. PET CT with low level FDG activity in [place], intrathoracic LAD low to mild FDG, with low level in the mild right basilar opacities. ID was consulted and infectious work-up was conducted which was only positive for rhinovirus. Fungal and bacterial work-up was negative. Symptoms thought to be unlikely infectious in etiology asit is extremely unlikely for patient to have [...] daughter. He's doing poorly, struggle with breathing. Daughterreports that he spiked fever up to 104 over the weekend. Scheduled for bronchoscopy with his primary medical staff physician at [facility] tomorrow. He's barely eating, loosing weight, failure to thrive. Review of Systems Constitutional: Positive for fatigue and unexpected weight change. Negative for activity change, appetite change, chills, diaphoresis and fever. HENT: Negative for mouth sores, sore throat, trouble swallowing and voice change. Eyes: Negative for photophobia and visual disturbance. Respiratory: Positive for cough and shortness of breath. Negative for chest tightness, wheezing andstridor. Cardiovascular: Negative for chest pain, palpitations and [...] Inject 140 mg subcutaneously every 2 weeks. 4Each 5 magnesium oxide (MAG-OX) 400 mg (241.3 mg magnesium) tablet Take 0.5 tablets by mouth once daily. 0.5 tablet 90 tablet 3 BABY ASPIRIN ORAL Take 81 mg by mouth once daily. ergocalciferol 50,000 unit capsule (VITAMIN D2, DRISDOL) once every month. zldzmtwhciy-nhlcbisue-qnzbzcfo (TRELEGY ELLIPTA) 100-62.5-25 mcg inhalation powder Inhale 1 Puff asinstructed once daily. (Patient not taking: Reported on [...] Lymph 1.00 - 4.00 k/uL 44.38 (H) [place]% % 4.0 Abs Asotin <0.87 k/uL 2.19 (H) Eosin% % 0.0 [...] without increased FDG activity may be below resolutionof PET. * Intrathoracic lymphadenopathy with low level and mild FDG activity may in part be reactive and/orrelated to known CLL. * Previous left lung [...] 08/28, and 10/10. He underwent endoscope at [facility] on 10/09/2022, found bleeders s/p endoscopic hemastatic [...] changes likely secondary to TRALI or infection. ChronicRLL PE - scheduled for outpatient bronch at [facility] tomorrow. 4. CLL - diagnosed in [...] active infection (productive cough, spiking fever of 1042 days ago). He should completes bronch and have acute infection addressed before initiating CLL treatment. 5. Essential thrombocythemia - platelet count over 1000K, without clear secondary causes - CALR no variant detected; JAK2 V617F not detected; BCR-ABL not detected. MPL-a sequence change ofc.1502T>C in exon 10 was detected at approximately 18% allelic proportion; a sequence change of c. 1514G>A (p.Vcl821Vxn) in exon 10 was detected at approximately 16% allelic proportion - he was started on hydrea since 04/2020, 500 mg BID - labs from 12/17/2022 was reviewed WBC 54.79, Hb 7.6, Hct 25.6, MCV 114.3, platelet 508 K, ANC 3.29,lymphocyte 44.38. Continue hydrea at the same dose, [...] by urology 8. GIB - admitted to [facility] in 04/2021 with Hb 4.8, transfused 7 [...] 08/16, 08/28, 10/10. He underwent endoscope at [facility] on 10/09/2022, found bleeders s/p endoscopic hemostatic [...] Level: 4 - Moderate documented in this [facility]09-07-2023 Miscellaneous Notes* Telephone Encounter - Pratibha De La Rosa MA - 12/19/2022 3:53 PM EDT Patient has been notified of recent PSA results and has verbalized his understanding. Pratibha De La Rosa MA documented in this [facility]09-07-2023 Miscellaneous Notes* Telephone Encounter - Pantera Irwin MA - 12/19/2022 8:08 AM EDT Left message for pt to call back office Pantera Irwin MA * Telephone Encounter - Pantera Irwin MA - 12/19/2022 8:08 AM EDT ----- Message from Loy Mcallister MD sent at 12/18/2022 6:30 PM EDT ----- Notify patient PSA has come down to 3.18. documented in this encounterGeorgetown [facility] Hospital09-01-2023 Miscellaneous Notes* Addendum Note - Nakul Gallegos MD - 12/13/2022 1:05 PM EDTAddended by: NAKUL GALLEGOS on: 12/13/2022 01:05 PM Modules accepted: Orders documented in this [facility]09-01-2023 NoteHNO ID: [id number] Author: Nakul Gallegos MD Service: ? Author Type: Physician Type: Progress Notes Filed: 12/13/2022 12:59 PM Note Text: [facility] DEPARTMENT OF PULMONARY MEDICINE Date: December 13, 2022 Patient Name: Adina David Adina David is a 67 year old yr old male, presents to the [facility] for evaluation of CIRA and insomnia. Patient [...] for internal providers or letter via the [employer] Postal Service for external providers. Patient Entered Questionnaires: PROMIS Global Health - (T-Scores - the mean of general population = 50. Five points is a clinically meaningful difference.) 05/31/2022 05/31/2022 12/05/2021 Physical T-Score 29.6 29.6 34.9 Mental T-Score 36.3 36.3 - Modified Medical Research [place] Dyspnea Scale (MMRC) I am too breathless to leave the house or I am breathless when dressing 4 Daily cough: Yes Daily Sputum: Yes IMMUNIZATIONS: Immunization History Administered Date(s) Administered COVID-19 original vaccine, age 12+ yr, monovalent ([employer] - [place]) 07/24/2021 COVID-19 original vaccine, [...] congestionno, epistaxis no. GI: (more content not included)...[facility]09-01-[facility] History of Present illness Narrative* Nakul Gallegos MD - 12/13/2022 10:57 AM EDT Images from the original note were not included. [facility] DEPARTMENT OF PULMONARY MEDICINE Date: December 13, 2022 Patient Name: Adina David Adina David is a 67 year old yr old male, presents to the [facility] for evaluation of OSAand insomnia. Patient has a history of CIRA diagnosed in 2018. Patient has been on CPAP since that time, but he ishaving significantly difficulty using CPAP. Patient has a [...] take off during the night, but on mostnights, he was able to use the entire [...] moderately severe Obstructive disease. Patient is an activemarijuana smoker, for over 50 years. Patient did smoke cigarettes for approximately. Patient has also developed insomnia symptoms alsong the time that these symptoms have occurred. Patient currently reports that he is averaging 3 hours of sleep per night. Patient has noted that aftera HS 11:00 PM; ESL on average 2-3 [...] for internal providers or letter via the [employer] Postal Service for external providers. Patient Entered Questionnaires: PROMIS Global Health - (T-Scores - the mean of general population = 50. Five points is a clinicallymeaningful difference.) 05/31/2022 05/31/2022 12/05/2021 Physical T-Score 29.6 29.6 34.9 Mental T-Score 36.3 36.3 - Modified Medical Research [place] Dyspnea Scale (MMRC) I am too breathless to leave the house or I am breathless when dressing 4 Daily cough: Yes Daily Sputum: Yes IMMUNIZATIONS: Immunization History Administered Date(s) Administered COVID-19 original vaccine, age 12+ yr, monovalent ([employer] - [facility]) 07/24/2021 COVID-19 original vaccine, full dose, monovalent ([employer]ERNA) 06/21/2020 07/19/202003/1303/13/2021 COVID-19 vaccine, age 12+ yr, bivalent (MODERNA) [...] Joint swelling no. ARTURO: Easy bruising no. YKM INDEX: A . FEV1 >64% : 0 [...] 16 Ht 5' 10 (1.78m) SpO2 88% http://www.calculator.net/jddzg-crrdpm-jqbyzyobbt.html GEN: Breathingnonlabored, Cachexia not present . 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 PSP - Spirometry results were repeatable. Aerosol Albuterol 0.83% used as bronchodilator IMPRESSION: Spirometry indicates moderate obstruction. There is no significant bronchodilator response. Electronically Signed On 07-19-2022 8:02:07 EDT by Albino Hardy MD ID: [id number] Name: ADINA DAVID Race: White Ht: 70.00 in Wt: 199.00 lbs Age: 66 Gender: Male : 1955 Dx: Chronic obstructive pulmonary disease with (acute) exacerbation Smoking Hx: Non-smoker Doctor: ULISES RAMOS Test Date: 07/18/2022 Site: [facility] Tech: Olivier Mckeon PRE-BRONCH POST-BRONCH Pre LLN Pred ULN %Pred [...] 0.50 23 FIVC (L) 4.36 4.22 -3 QFH92-46 (L/sec) 0.90 1.11 2.51 4.47 36 0.77 [...] adjustments, and make further recommendations based on patientprogress. Given PFT findings of Moderate COPD, I [...] optimizing treatment of CIRA, and then optimizing othermedical conditions contributing to insomnia, including pulmonary disease, [...] due to deconditioning, and patient has requested areferral to urology, as he would like to [...] counseling Nakul Gallegos MD documented in this [facility]Ge[facility]08-31-2023 NoteHNO ID: [id number] Author: Maddie White RN Service: ? Author Type: Registered Nurse Type: Progress Notes Filed: 12/12/2022 11:50 AM Note Text: TCM Home Visit Referral Source of Stratification: [facility] Admission Status: Discharged Readmission Risk Score: [...] Network Status: In-Network Discharge Pt discharged from [facility] [place] on 12/11/22. Admitted for: SOB, fatigue-Chronic pulmonary embolism Contact made with patient: Yes Hi my name is Maddie White RN and I am calling from the [facility] on behalf of your PCP, Ulises Ramos, [...] like to speak with a social work maintenance team leader to help give you support for any [...] I will send your request to a master scheduler who will contact and assist you [...] way if possible). NYDIA Education Ordered -: [facility]08-31-2023 NotePatient Outreach (AMBC[facility]) ADINA DAVID ([id number]) 1955 M Date Time Provider Department 12/12/22 MADDIE WHITE During your visit today, we recorded the following information about you: Maddie White RN 12/12/2022 11:50 AM Signed TCM Home Visit Referral Source of Stratification: [facility] Admission Status: Discharged Readmission Risk Score: [...] Network Status: In-Network Discharge Pt discharged from [facility] on 12/11/22. Admitted for: SOB, fatigue-Chronic pulmonary embolism Contact made with patient: Yes Hi my name is Maddie White RN and I am calling from the [facility] on behalf of your PCP, Ulises Ramos, [...] like to speak with a social work maintenance team leader to help give you support for any [...] I will send your request to a master scheduler who will contact and assist you [...] Date Reviewed: 12/05/2022 Reviewed by: Amy Bach, MEHUL - Fully Assessed Reason for Visit: Transition Of Care [4074] Cmt: TCM initia (more content not included)... [facility]08-30-2023 NoteHNO ID: [id number] Author: Kirill Palacio RPh Service: Pharmacy Author [...] at this time from Discharge Medication List. Tatyanamary Matias [facility] December 11, 2022 4:12 PM Pager: [phone] 12/11/2022 4:12 PM Medication List START taking [...] ELLIPTA 100-62.5-25 mcg inhalation powder Generic drug: gmgvtgwmvix-vhfjhxhud-jewnaxhq Inhale 1 Puff as instructed once daily. [...] Your Medications These medications were sent to [facility] [address] [place] [id number] Hours: Friday-Friday 7am-8pm, Friday, Friday and Holidays 9am-5pm enoxaparin 40 mg/0.4 mL metoprolol tartrate (short acting) 25 mg tablet sodium bicarbonate 650 mg tablet These medications were sent to [facility] [address] [place] [address] [place], [place] [id number] hydroxyurea 500 mg capsule TRELEGY ELLIPTA 100-62.5-25 mcg inhalation powderTrumbull Memorial Hospital 12-11-2022 NoteHNO ID: [id number] Author: Vahe Cancino Service: ? Author Type: Quality Assurance/R&D Lab Technician Type: Plan of Care Filed: 12/11/2022 4:06 PM Note Text: PHARMACY BEDSIDE DELIVERY SERVICE Patient Name: Adina David The marked outpatient medications were Filled at: [facility] and delivered to the patient's [...] how much to take DELIVERED TO PATIENT REPATHA SURECLICK 140 mg/mL pen injector Generic drug: evolocumab Inject 140 mg subcutaneously every 2 weeks. What changed: when to take this TRELEGY ELLIPTA 100-62.5-25 mcg inhalation powder Generic drug: olxyiqzvkra-cafkkkhjb-rhbiszpf Inhale 1 Puff as instructed once daily. [...] valACYclovir 1 gram Commonly known as: VALTREX Vahe Cancino PAGER: [phone] December 11, 2022 4:05 [facility]08-29-2023 NoteHNO ID: [id number] Author: Ki Levin MD Service: Hematology/Oncology Author Type: Physician Type: Plan of Care Filed: 01/01/2023 5:52 PM Note Text: This note was created in error.[facility]08-29-2023 NoteHNO ID: [id number] Author: Nhan Qureshi Service: Pharmacy Author Type: Quality Assurance/R&D Lab Technician Type: Plan of Care Filed: 12/10/2022 11:26 [...] pharmacy, please send new prescription(s) over to [facility] pharmacy. Any questions, [place] [phone]. Thank you (Prices may vary at different pharmacy locations, this is the cost at [facility]08-29-2023 NoteHNO ID: [id number] Author: Gilbert Garcia LSW Service: Care Management Author Type: Research Center Director Type: Care Mgt Progress Note Filed: 12/11/2022 [...] 10, 2022 TIME: 11:15 AM PAGER/CONTACT #: [phone] Memorial Hospital08-29-2023 NoteHNO ID: [id number] Author: Carole Pascal MD Service: General Internal Medicine Author Type: Physician Type: Progress Notes Filed: 12/10/2022 4:44 PM Note Text: General Internal Medicine - Service Max Haro Progress Note From 7am to 5pm: Please page [phone] After hours 5pm to 7am: Please page on-call [phone] SERVICE DATE: 12/10/2022 SERVICE TIME: 9:05 AM Patient Summary Interval History: - NAEON, currently on RA - Kidney fxn improving, [...] Phos Recent Labs 12/10/22 0606 12/09/22 0813 12/08/22185712/08/22 1714 WBC 43.34* 34.52* -- 36.26* HB [...] Liver Function, Amylase, AND Lipase Recent Labs 12/08/22185712/08/22 1714 ALB 4.0 3.7* Cardiac Enzymes ABGs Procalcitonin <0.09 ng/mL 0.08 Urine pH, Urine Date Value Ref Range Status 12/04/2022 5.5 5.0 - 8.0 Final Specific [place], Ur Date Value Ref Range Status 12/04/2022 [...] the small saphenous v (more content not included)...[facility]08-28-2023 History of Present illness Narrative* Yoselin Dobbs, PhD - 12/09/2022 8:22 AM EDT [facility] Psycho-Oncology Program CONFIDENTIAL INITIAL PSYCHOLOGICAL EVALUATION DATE OF SERVICE: December 09, 2022, Virtual Initial Diagnostic Evaluation, 8:15pm to 9:00am PRESENT: Patient REFERRAL SOURCE: Dr. Dale Due to the [facility] and [facility] and the need for ongoing mental health services, thefollowing visit was completed virtually to reduce the risk of COVID-19 exposure. Consent related tovirtual visits was provided verbally after information was sent via [facility] or read to patient if MyChart not available. The session was completed virtually. [...] male who presented with multiple hematological conditions, whowas refer to oncology psychology for evaluation and [...] SYMPTOMS THAT HAVE HINDERED FUNCTIONING Physical limitations (can't breathe, can't move) Will assess PHQ and GABRIELLA next session. [...] q 6 H PRN Андрей Klein MD 3mL at 12/08/222048 hydroxyurea 1,000 mg cap(s) (HYDREA) [...] PRN Umesh Pierre MD 650 mg at 206 melatonin 1 mg tab(s) 1 mg ORAL DAILY (8 PM) Umesh Pierre MD 1 mg at 12/08/22 2206 aspirin 81 mg chewable tab(s) 81 mg ORAL/FEEDING TUBE DAILY Umesh Pierre MD 81 mg at 12/08/[address] 40 mg tab(s) (PROTONIX) 40 mg ORAL DAILY (6 AM) Umesh Pierre MD 40 mg at 12/09/22 0647 zolpidem 5 mg tab(s) (AMBIEN) 5 mg ORAL AT BEDTIME PRN Umesh Pierre MD 5 mg at 12/08/22 220 heparin 5,000 Units injection 5,000 Units SUBCUTANEOUS [...] Dobbs, Ph.D. Staff Clinical Psychologist Hem/Medical Onc Moonachieelva Alonso [phone] This note was partially generated using [employer] voice recognition system. documented in this encounterGeorgetown [facility]08-28-2023 NoteHNO ID: [id number] Author: Carole Pascal MD Service: General Internal Medicine Author Type: Physician Type: Progress Notes Filed: 12/09/2022 4:35 PM Note Text: General Internal Medicine - Service Max Haro Progress Note From 7am to 5pm: Please page [phone] After hours 5pm to 7am: Please page on-call [phone] SERVICE DATE: 12/07/2022 SERVICE TIME: 9:05 AM [...] CBC, Coags, BMP, Mg, Phos Recent Labs 12/08/22185712/08/22171312/07/22 0702 12/06/22 1700 12/06/22 1255 WBC -- [...] Liver Function, Amylase, AND Lipase Recent Labs 12/08/22185712/08/22171312/06/22 1255 ALB 4.0 3.7* 3.5* Cardiac Enzymes ABGs Procalcitonin <0.09 ng/mL 0.08 Urine pH, Urine Date Value Ref Range Status 12/04/2022 5.5 5.0 - 8.0 Final Specific [place], Ur Date Value Ref Range Status 12/04/2022 [...] deep vein thrombosis. RI (more content not included)...[facility]08-27-2023 NoteHNO ID: [id number] Author: Roger Guerrier MD Service: General Internal Medicine Author Type: Physician Type: Progress Notes Filed: 12/08/2022 10:48 AM Note Text: General Internal Medicine - Service Max Haro Progress Note From 7am to 5pm: Please page [phone] After hours 5pm to 7am: Please page on-call [phone] SERVICE DATE: 12/07/2022 SERVICE TIME: 9:05 AM Patient Summary Interval History: - NAEON, currently on RA - Kidney fxn improving, [...] 12/04/2022 5.5 5.0 - 8.0 Final Specific [place], Ur Date Value Ref Range Status 12/04/2022 [...] RIGHT SIDE - SUPER (more content not included)...[facility] 12-07-2022 NoteHNO ID: [id number] Author: Roger Guerrier MD Service: General Internal Medicine Author Type: Physician Type: Progress Notes Filed: 12/07/2022 2:12 PM Note Text: General Internal Medicine - Service Max Haro Progress Note From 7am to 5pm: Please page [phone] After hours 5pm to 7am: Please page on-call [phone] SERVICE DATE: 12/07/2022 SERVICE TIME: 9:05 AM Patient Summary Interval History: - EDIEON, currently on RA - Kidney fxn improving, [...] 12/04/2022 5.5 5.0 - 8.0 Final Specific [place], Ur Date Value Ref Range Status 12/04/2022 [...] Assessment and Plan Acti (more content not included)...[facility]08-22-2023 History of Past illness Narrative* Problem Noted Date Diagnosed Date Resolved Date Elevated troponin 12/03/2022 12/11/2022 Closed left subtrochanteric femur fracture 07/22/2020 07/27/2020 Facial numbness 03/31/2019 04/03/2019 GI bleed 12/31/2018 01/11/2019 Frequency of urination 03/19/201802/11 AVM (arteriovenous malformation) of colon 01/11/2019 documented as of this encounter (statuses as of 12/13/2022) [facility] of Past illness Narrative* Problem Noted Date Diagnosed Date Resolved Date Elevated troponin 12/03/2022 12/11/2022 Closed left subtrochanteric femur fracture 07/22/2020 07/27/2020 Facial numbness 03/31/2019 04/03/2019 GI bleed 12/31/2018 01/11/2019 Frequency of urination 03/19/201802/11 AVM (arteriovenous malformation) of colon 01/11/2019 documented as of this encounter (statuses as of 12/13/2022) [facility] History of Past illness Narrative* Problem Noted Date Diagnosed Date Resolved Date Elevated troponin 12/03/2022 12/11/2022 Closed left subtrochanteric femur fracture 07/22/2020 07/27/2020 Facial numbness 03/31/2019 04/03/2019 GI bleed 12/31/2018 01/11/2019 Frequency of urination 03/19/201802/11 AVM (arteriovenous malformation) of colon 01/11/2019 documented as of this encounter (statuses as of 12/19/2022) [facility] of Past illness Narrative* Problem Noted Date Diagnosed Date Resolved Date Elevated troponin 12/03/2022 12/11/2022 Closed left subtrochanteric femur fracture 07/22/2020 07/27/2020 Facial numbness 03/31/2019 04/03/2019 GI bleed 12/31/2018 01/11/2019 Frequency of urination 03/19/201802/11 AVM (arteriovenous malformation) of colon 01/11/2019 documented as of this encounter (statuses as of 12/20/2022) [facility] History of Past illness Narrative* Problem Noted Date Diagnosed Date Resolved Date Elevated troponin 12/03/2022 12/11/2022 Closed left subtrochanteric femur fracture 07/22/2020 07/27/2020 Facial numbness 03/31/2019 04/03/2019 GI bleed 12/31/2018 01/11/2019 Frequency of urination 03/19/201802/11 AVM (arteriovenous malformation) of colon 01/11/2019 documented as of this encounter (statuses as of 12/20/2022) [facility] History of Past illness Narrative* Problem Noted Date Diagnosed Date Resolved Date Elevated troponin 12/03/2022 12/11/2022 Closed left subtrochanteric femur fracture 07/22/2020 07/27/2020 Facial numbness 03/31/2019 04/03/2019 GI bleed 12/31/2018 01/11/2019 Frequency of urination 03/19/201802/11 AVM (arteriovenous malformation) of colon 01/11/2019 documented as of this encounter (statuses as of 12/24/2022) [facility] History of Past illness Narrative* Problem Noted Date Diagnosed Date Resolved Date Elevated troponin 12/03/2022 12/11/2022 Closed left subtrochanteric femur fracture 07/22/2020 07/27/2020 Facial numbness 03/31/2019 04/03/2019 GI bleed 12/31/2018 01/11/2019 Frequency of urination 03/19/201802/11 AVM (arteriovenous malformation) of colon 01/11/2019 documented as of this encounter (statuses as of 12/25/2022) [facility] History of Past illness Narrative* Problem Noted Date Diagnosed Date Resolved Date Elevated troponin 12/03/2022 12/11/2022 Closed left subtrochanteric femur fracture 07/22/2020 07/27/2020 Facial numbness 03/31/2019 04/03/2019 GI bleed 12/31/2018 01/11/2019 Frequency of urination 03/19/201802/11 AVM (arteriovenous malformation) of colon 01/11/2019 documented as of this encounter (statuses as of 12/27/2022) [facility] History of Past illness Narrative* Problem Noted Date Diagnosed Date Resolved Date Elevated troponin 12/03/2022 12/11/2022 Closed left subtrochanteric femur fracture 07/22/2020 07/27/2020 Facial numbness 03/31/2019 04/03/2019 GI bleed 12/31/2018 01/11/2019 Frequency of urination 03/19/201802/11 AVM (arteriovenous malformation) of colon 01/11/2019 documented as of this encounter (statuses as of 12/30/2022) [facility] History of Past illness Narrative* Problem Noted Date Diagnosed Date Resolved Date Elevated troponin 12/03/2022 12/11/2022 Closed left subtrochanteric femur fracture 07/22/2020 07/27/2020 Facial numbness 03/31/2019 04/03/2019 GI bleed 12/31/2018 01/11/2019 Frequency of urination 03/19/201802/11 AVM (arteriovenous malformation) of colon 01/11/2019 documented as of this encounter (statuses as of 01/01/2023) [facility] History of Past illness Narrative* Problem Noted Date Diagnosed Date Resolved Date Elevated troponin 12/03/2022 12/11/2022 Closed left subtrochanteric femur fracture 07/22/2020 07/27/2020 Facial numbness 03/31/2019 04/03/2019 GI bleed 12/31/2018 01/11/2019 Frequency of urination 03/19/201802/11 AVM (arteriovenous malformation) of colon 01/11/2019 documented as of this encounter (statuses as of 01/04/2023) [facility] History of Past illness Narrative* Problem Noted Date Diagnosed Date Resolved Date Elevated troponin 12/03/2022 12/11/2022 Closed left subtrochanteric femur fracture 07/22/2020 07/27/2020 Facial numbness 03/31/2019 04/03/2019 GI bleed 12/31/2018 01/11/2019 Frequency of urination 03/19/201802/11 AVM (arteriovenous malformation) of colon 01/11/2019 documented as of this encounter (statuses as of 01/11/2023) [facility] History of Past illness Narrative* Problem Noted Date Diagnosed Date Resolved Date Elevated troponin 12/03/2022 12/11/2022 Closed left subtrochanteric femur fracture 07/22/2020 07/27/2020 Facial numbness 03/31/2019 04/03/2019 GI bleed 12/31/2018 01/11/2019 Frequency of urination 03/19/201802/11 AVM (arteriovenous malformation) of colon 01/11/2019 documented as of this encounter (statuses as of 01/18/2023) [facility] History of Past illness Narrative* Problem Noted Date Diagnosed Date Resolved Date Elevated troponin 12/03/2022 12/11/2022 Closed left subtrochanteric femur fracture 07/22/2020 07/27/2020 Facial numbness 03/31/2019 04/03/2019 GI bleed 12/31/2018 01/11/2019 Frequency of urination 03/19/201802/11 AVM (arteriovenous malformation) of colon 01/11/2019 documented as of this encounter (statuses as of 01/18/2023) [facility] History of Past illness Narrative* Problem Noted Date Diagnosed Date Resolved Date Elevated troponin 12/03/2022 12/11/2022 Closed left subtrochanteric femur fracture 07/22/2020 07/27/2020 Facial numbness 03/31/2019 04/03/2019 GI bleed 12/31/2018 01/11/2019 Frequency of urination 03/19/201802/11 AVM (arteriovenous malformation) of colon 01/11/2019 documented as of this encounter (statuses as of 01/22/2023) [facility] History of Past illness Narrative* Problem Noted Date Diagnosed Date Resolved Date Elevated troponin 12/03/2022 12/11/2022 Closed left subtrochanteric femur fracture 07/22/2020 07/27/2020 Facial numbness 03/31/2019 04/03/2019 GI bleed 12/31/2018 01/11/2019 Frequency of urination 03/19/201802/11 AVM (arteriovenous malformation) of colon 01/11/2019 documented as of this encounter (statuses as of 01/31/2023) [facility] History of Past illness Narrative* Problem Noted Date Diagnosed Date Resolved Date Elevated troponin 12/03/2022 12/11/2022 Closed left subtrochanteric femur fracture 07/22/2020 07/27/2020 Facial numbness 03/31/2019 04/03/2019 GI bleed 12/31/2018 01/11/2019 Frequency of urination 03/19/201802/11 AVM (arteriovenous malformation) of colon 01/11/2019 documented as of this encounter (statuses as of 02/04/2023) [facility] History of Past illness Narrative* Problem Noted Date Diagnosed Date Resolved Date Elevated troponin 12/03/2022 12/11/2022 Closed left subtrochanteric femur fracture 07/22/2020 07/27/2020 Facial numbness 03/31/2019 04/03/2019 GI bleed 12/31/2018 01/11/2019 Frequency of urination 03/19/201802/11 AVM (arteriovenous malformation) of colon 01/11/2019 documented as of this encounter (statuses as of 03/17/2023) [facility] History of Past illness Narrative* Problem Noted Date Diagnosed Date Resolved Date Elevated troponin 12/03/2022 12/11/2022 Closed left subtrochanteric femur fracture 07/22/2020 07/27/2020 Facial numbness 03/31/2019 04/03/2019 GI bleed 12/31/2018 01/11/2019 Frequency of urination 03/19/201802/11 AVM (arteriovenous malformation) of colon 01/11/2019 documented as of this encounter (statuses as of 05/19/2023) [facility] History of Past illness Narrative* Problem Noted Date Diagnosed Date Resolved Date Elevated troponin 12/03/2022 12/11/2022 Closed left subtrochanteric femur fracture 07/22/2020 07/27/2020 Facial numbness 03/31/2019 04/03/2019 GI bleed 12/31/2018 01/11/2019 Frequency of urination 03/19/201802/11 AVM (arteriovenous malformation) of colon 01/11/2019 documented as of this encounter (statuses as of 05/28/2023) [facility] History of Past illness Narrative* Problem Noted Date Diagnosed Date Resolved Date Elevated troponin 12/03/2022 12/11/2022 Closed left subtrochanteric femur fracture 07/22/2020 07/27/2020 Facial numbness 03/31/2019 04/03/2019 GI bleed 12/31/2018 01/11/2019 Frequency of urination 03/19/201802/11 AVM (arteriovenous malformation) of colon 01/11/2019 documented as of this encounter (statuses as of 05/30/2023) [facility] History of Past illness Narrative* Problem Noted Date Diagnosed Date Resolved Date Elevated troponin 12/03/2022 12/11/2022 Closed left subtrochanteric femur fracture 07/22/2020 07/27/2020 Facial numbness 03/31/2019 04/03/2019 GI bleed 12/31/2018 01/11/2019 Frequency of urination 03/19/201802/11 AVM (arteriovenous malformation) of colon 01/11/2019 documented as of this encounter (statuses as of 06/02/2023) [facility] History of Past illness Narrative* Problem Noted Date Diagnosed Date Resolved Date Elevated troponin 12/03/2022 12/11/2022 Closed left subtrochanteric femur fracture 07/22/2020 07/27/2020 Facial numbness 03/31/2019 04/03/2019 GI bleed 12/31/2018 01/11/2019 Frequency of urination 03/19/201802/11 AVM (arteriovenous malformation) of colon 01/11/2019 documented as of this encounter (statuses as of 06/02/2023) [facility] History of Past illness Narrative* Problem Noted Date Diagnosed Date Resolved Date Elevated troponin 12/03/2022 12/11/2022 Closed left subtrochanteric femur fracture 07/22/2020 07/27/2020 Facial numbness 03/31/2019 04/03/2019 GI bleed 12/31/2018 01/11/2019 Frequency of urination 03/19/201802/11 AVM (arteriovenous malformation) of colon 01/11/2019 documented as of this encounter (statuses as of 06/05/2023) [facility] History of Past illness Narrative* Problem Noted Date Diagnosed Date Resolved Date Elevated troponin 12/03/2022 12/11/2022 Closed left subtrochanteric femur fracture 07/22/2020 07/27/2020 Facial numbness 03/31/2019 04/03/2019 GI bleed 12/31/2018 01/11/2019 Frequency of urination 03/19/201802/11 AVM (arteriovenous malformation) of colon 01/11/2019 documented as of this encounter (statuses as of 06/23/2023) [facility] History of Past illness Narrative* Problem Noted Date Diagnosed Date Resolved Date Elevated troponin 12/03/2022 12/11/2022 Closed left subtrochanteric femur fracture 07/22/2020 07/27/2020 Facial numbness 03/31/2019 04/03/2019 GI bleed 12/31/2018 01/11/2019 Frequency of urination 03/19/201802/11 AVM (arteriovenous malformation) of colon 01/11/2019 documented as of this encounter (statuses as of 06/26/2023) [facility] History of Past illness Narrative* Problem Noted Date Diagnosed Date Resolved Date Elevated troponin 12/03/2022 12/11/2022 Closed left subtrochanteric femur fracture 07/22/2020 07/27/2020 Facial numbness 03/31/2019 04/03/2019 GI bleed 12/31/2018 01/11/2019 Frequency of urination 03/19/201802/11 AVM (arteriovenous malformation) of colon 01/11/2019 documented as of this encounter (statuses as of 07/01/2023) [facility] History of Past illness Narrative* Problem Noted Date Diagnosed Date Resolved Date Elevated troponin 12/03/2022 12/11/2022 Closed left subtrochanteric femur fracture 07/22/2020 07/27/2020 Facial numbness 03/31/2019 04/03/2019 GI bleed 12/31/2018 01/11/2019 Frequency of urination 03/19/201802/11 AVM (arteriovenous malformation) of colon 01/11/2019 documented as of this encounter (statuses as of 07/03/2023) [facility] History of Past illness Narrative* Problem Noted Date Diagnosed Date Resolved Date Elevated troponin 12/03/2022 12/11/2022 Closed left subtrochanteric femur fracture 07/22/2020 07/27/2020 Facial numbness 03/31/2019 04/03/2019 GI bleed 12/31/2018 01/11/2019 Frequency of urination 03/19/201802/11 AVM (arteriovenous malformation) of colon 01/11/2019 documented as of this encounter (statuses as of 07/15/2023) [facility] History of Past illness Narrative* Problem Noted Date Diagnosed Date Resolved Date Elevated troponin 12/03/2022 12/11/2022 Closed left subtrochanteric femur fracture 07/22/2020 07/27/2020 Facial numbness 03/31/2019 04/03/2019 GI bleed 12/31/2018 01/11/2019 Frequency of urination 03/19/201802/11 AVM (arteriovenous malformation) of colon 01/11/2019 documented as of this encounter (statuses as of 07/17/2023) [facility] History of Past illness Narrative* Problem Noted Date Diagnosed Date Resolved Date Elevated troponin 12/03/2022 12/11/2022 Closed left subtrochanteric femur fracture 07/22/2020 07/27/2020 Facial numbness 03/31/2019 04/03/2019 GI bleed 12/31/2018 01/11/2019 Frequency of urination 03/19/201802/11 AVM (arteriovenous malformation) of colon 01/11/2019 documented as of this encounter (statuses as of 07/18/2023) [facility] History of Past illness Narrative* Problem Noted Date Diagnosed Date Resolved Date Elevated troponin 12/03/2022 12/11/2022 Closed left subtrochanteric femur fracture 07/22/2020 07/27/2020 Facial numbness 03/31/2019 04/03/2019 GI bleed 12/31/2018 01/11/2019 Frequency of urination 03/19/201802/11 AVM (arteriovenous malformation) of colon 01/11/2019 documented as of this encounter (statuses as of 07/31/2023) [facility] Miscellaneous Notes* Telephone Encounter - Alyse Quinn - 12/03/2022 10:54 AM EDT Pt currently admitted to [facility] Main for blood clots in right lung. They did another US of his legs and they were cleared. [facility] Miscellaneous Notes* Telephone Encounter - Bijal Rowan - 11/29/2022 11:46 AM EDT Daughter called today. Patient could barely get out of bed. He is not sleeping well. He has had a gradual decline with fatigue. They will go to main [facility] ER. Spoke with patient at length. (>25 minutes discussing his medical history and multiple issues with each specialty). He has no SOB within the conversation. He questions what Hgb level will you transfuse? Tried to explain 8.6, although low, transfusion not medically required. [facility] Miscellaneous Notes* Telephone Encounter - Ary Santoro [...] here. Please advise pt documented in [facility]Ge[facility]23 Miscellaneous Notes* Telephone Encounter - Quentin Guidry RN - 11/27/2022 3:39 PM EDT Called pt and informed Dr Dale's response below, pt verbalized understanding. Quentin Guidry LPN * Telephone Encounter - Halle Dale [...] advise Derek Horne MA documented in this encounterGe[facility]08[facility] History of Present illness Narrative* Macie Thacker APRN.CNP - 11/27/2022 12:54 PM EDT Virtualist Distance Health Note (CDM/TCM//CC HC/H@HCC escalations) I have communicated my name and active licensure. The patient's identity and physical location wereverified at the time of this visit. Either the patient or their legal admissions representative has been informed of the risks [...] in as Primary Virtualist, Secondary Virtualist, or [facility] Telehealth provider: Primary SIGNATURE: Macie Chatman APRN.CNP PATIENT NAME: Adina David DATE: November 27, 2022 documented in this [facility]Ge[facility] History of Present illness Narrative* Leslie Moon APRN.ALCIDES - 11/26/2022 10:46 AM EDT PROGRESS NOTE [...] 3 cycles started 02/02/2021 11/16/2021 Other (=) AmBismark ritter, RPh FERRIC CARBOXYMALTOSE 15 D1,8 4 of 4 cycles started 10/05/2019 02/02/2021 Other (non-formulary item)Yehuda Garrison, RPh FERRIC CARBOXYMALTOSE 15 D1,8 1 of 1 cycle started 07/27/2019 09/27/2019 Other RehmusSheela Hoogland FERRIC CARBOXYMALTOSE 15 D1,8 3 of 3 cycles started 01/27/2019 07/27/2019 Other Rehmus Sheela Hoogland FERRIC CARBOXYMALTOSE 15 D1,8 1 of 1 cycle started 10/22/2017 12/28/2018 Other Amriya (Pharmacist)B[place]ark NON-CHEMO 2 Plan Name Cycles Start Date Discontinue Date Discontinue Reason Discontinue User REGIONAL - TRANSFUSION, PRBC AND PLTS 1 of 1 cycle started 04/04/2021 06/09/2021 Other [...] (Temporal) Resp 18 Ht 177.8 cm (5' 10) Wt 84 kg(185 lb 3.2 oz) SpO2 [...] CT A/P w/ IV contrast on 01/19/2022 ([facility]) Right inguinal hernia containing loops of bowel. [...] 08/28, and 10/10. He underwent endoscope at [facility] on 10/09/2022, found bleeders s/p endoscopic hemastatic [...] proportion; a sequence change of c. 1514G>A (p.[id number]) in exon 10 was detected at approximately [...] no change 7. GIB - admitted to [facility] in 04/2021 with Hb 4.8, transfused 7 [...] 08/16, 08/28, 10/10. He underwent endoscope at [facility] on 10/09/2022, found bleeders s/p endoscopic hemostatic [...] minutes in consultation with him. Leslie Moon APRN.STERNMAN documented in this encounterGeorgetown [facility]08-14-2023 Miscellaneous Notes* Telephone Encounter - Quentin Guidry, RN - 11/25/2022 2:[address] Dale's request, Psychology (new patient exam) with Dr Yoselin Dobbs setup for 12/09/22, CT Chest scheduled for 02/24/23, Follow up OV scheduled for 03/05. Called pt to notify, pt verbalized understanding. Quentin Guidry LPN documented in this encounterGeorgetown [facility]al Hospital08-10-2023 Miscellaneous Notes* Telephone Encounter - Emilee Lake Ma - 11/21/2022 5:29 PM EDT Lmom. Tried to initiate auth through covermymeds but pt is not being found under insurance we have listed. Please verify pts insurance info. * Telephone Encounter - Emilee Lake Ma - 11/21/2022 11:13 AM EDT Auth for Sleepiness Due To Obstructive Sleep Apnea? * Telephone Encounter - SnehaKimberleyce - 11/21/2022 9:32 AM EDT The New medication PROVIGIL is needing a Prior Auth Pharmacy say the insurance is wanting to know what is the NEED for this medications. 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 [...] LIST Deng (Acute Kidney Injury) ([facility]) - 01/07/2019 (D priority) Iron Deficiency Anemia Due to Chronic Blood Loss - 02/19/2022 Vitamin D Deficiency - 07/17/2021 Obesity, Class I, Bmi 30-34.9 - 05/28/2021 Acute Blood Loss Anemia - 05/16/2021 Covid-19 Virus Infection - 05/16/2021 Severe Protein-Calorie Malnutrition ([facility]) - 05/09/2021 Severe Anemia - 05/02/2021 Cira (Obstructive Sleep Apnea) - 05/01/2021 Deep Vein Thrombosis (Dvt) of Femoral Vein of Left Lower Extremity ([facility]) - 03/14/2021 Leg Swelling - 03/14/2021 Leukocytosis - 03/31/2019 Essential Thrombocythemia ([facility]) - 03/31/2019 Ckd (Chronic Kidney Disease) Stage 3, Gfr 30-59 Ml/Min ([facility]) - 03/31/2019 Hypertriglyceridemia 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 Cont to fu w gi for tx of his AVL 3. Essential thrombocythemia (HCC) - ICD9: 238.71, ICD10: D47.3 Defer to heme 4. CLL (chronic lymphocytic leukemia) (HCC) - ICD9: 204.10, ICD10: C91.10 Cont to fu w heme Ulises Ramos DO 1. CIRA (obstructive sleep apnea) - ICD9: 327.23, ICD10: G47.33 Trial of provigil - MODAFINIL 200 MG TABLET Ulises Ramos DO documented in this encounterGeorgetown [facility]al Hospital08-08-2023 History of Present illness Narrative* Halle Dale [...] Abs. Lymph 0.84 - 2.85 thou/cmm Abs. Asotin 0.30 - 0.82 thou/cmm Abs. Eosin 0.04 [...] Lymph 1.00 - 4.00 k/uL 25.36 (H) Asotin% % 1.0 Abs Asotin <0.87 k/uL 0.36 Eosin% % 3.0 Abs [...] CT A/P w/ IV contrast on 01/19/2022 ([facility]) Right inguinal hernia containing loops of bowel. [...] 08/28, and 10/10. He underwent endoscope at [facility] on 10/09/2022, found bleeders s/p endoscopic hemastatic [...] proportion; a sequence change of c. 1514G>A (p.[id number]) in exon 10 was detected at approximately [...] by urology 7. GIB - admitted to [facility] in 04/2021 with Hb 4.8, transfused 7 [...] 08/16, 08/28, 10/10. He underwent endoscope at [facility] on 10/09/2022, found bleeders s/p endoscopic hemostatic [...] opinion. He asked to see Leslie Moon CNP who used to care for his . [...] Level: 4 - Moderate documented in this encounterGe[facility]08-07-2023 Miscellaneous Notes* Telephone Encounter - Yuko Raymond [...] covid testing previously placed. documented in this encounterGeorgetown [facility] Hospital08-05-2023 Miscellaneous Notes* Telephone Encounter - Bertha Chou MD - 11/16/2022 9:51 AM EDT Pt [...] COVID test in his chart from Dr. Ramso, to which I explained to him that I was not sure as I am not in his office but I don't see anything in his chart ordered. Pt stated that Dr. Dale can GFY. Pt then proceeded to yell at me and hang up. documented in this encounterGeorgetown [facility]al Hospital08-04-2023 Miscellaneous Notes* Telephone Encounter - Halle Dale [...] AM EDT [facility] [place], pt is requesting an early refill on [...] in) Derek Horne MA documented in this encounterGeorgetown [facility]al Hospital08-04-2023 Miscellaneous Notes* Telephone Encounter - Peter Land [...] him until his appointment. documented in this encounterGeorgetown [facility]al Hospital08-01-2023 Miscellaneous Notes* Telephone Encounter - Ary Araujo Ma - 11/12/2022 2:05 PM EDT Spoke to patient. He verified faxing lab results to [facility], Michelle. Richard placed Covid test order for patient. Informed patient he can schedule an appointment through [facility] to have his Covid test done.He might wait till his appointment with Richard. Faxed lab results to [phone]. * Telephone Encounter - Guerline Alex - [...] his lab results faxed to MICHELLE at [facility], fax number: [phone] attn: Dr. Milner documented in this encounterGeorgetown Behavioral Hospital07-27-2023 Miscellaneous Notes* Telephone Encounter - Thi Pavon [...] results and also his visit yesterday w/Dr. Lovelace. Justyna CABEZAS Patient Outreach Team documented in this encounterGeorgetown Behavioral Hospital07-26-2023 Miscellaneous Notes* Telephone Encounter - Fidencio Mon RN - 11/06/2022 11:49 AM EDT Pt had a visit with provider today. Fidencio Mon RN documented in this encounterGeorgetown [facility]al Hospital07-13-2023 Miscellaneous Notes* Telephone Encounter - Derek Horne [...] well Derek Horne MA documented in this [facility]07-13-2023 History of Present illness Narrative* Wilton Palma RN - 10/24/2022 10:35 AM EDT [facility] Telephonic Outreach Provider Action/FYI CDM: CKD Left a message, Instructed to call PCP with any symptom or condition changes. Contacted for: Routine Telephonic Outreach Contact made with patient: No, left message. Wilton Palma RN October 24, 2022 10:36 AM documented in this encounterGeorgetown [facility]al Hospital07-12-2023 History of Present illness Narrative* Wilton Palma RN - 10/23/2022 1:13 PM EDT CDM Telephonic Outreach Provider Action/FYI CDM: CKD Left a message, Instructed to call PCP with any symptom or condition changes Contacted for: Routine Telephonic Outreach Contact made with patient: No, left message. Wilton Palma RN October 23, 2022 1:34 PM * [...] 22, 2022 5:07 PM documented in this encounterGeorgetown Behavioral Hospital07-07-2023 Miscellaneous Notes* Telephone Encounter - Halle Dale MD - 10/18/2022 4:54 PM EDT I would not increase the dose of ambien. Encourage him to see PCP or sleep specialist for insomnia treatment. Ambien 10 mg is above recommended dose, may cause adverse events. * Telephone Encounter - eDrek Horne MA - 10/18/2022 10:17 AM EDT Pt called as his pharmacy still hasn't received the increased zolpidem script. Pt states it is supposed to be 10mg and to [facility] in [place]. 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 [...] Vein of Left Lower Extremity ([facility]) - 03/14/2021 Leg Swelling - 03/14/2021 Leukocytosis - 03/31/2019 Essential Thrombocythemia ([facility]) - 03/31/2019 Ckd (Chronic Kidney Disease) Stage 3, Gfr 30-59 Ml/Min ([facility]) - 03/31/2019 Hypertriglyceridemia 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 S/P Drug Eluting Coronary Stent Placement - 11/25/2018 Stage 2 Chronic Kidney Disease - 11/10/2018 Nstemi (Non-St Elevated Myocardial Infarction) ([facility]) - 10/24/2018 Bph (Benign Prostatic Hyperplasia) - 10/05/2018 History of Right Nephrectomy - 10/05/2018 Nocturia - 03/19/2018 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 Андрей w DO Ulises Matos DO documented in this encounterGe[facility]07-06-2023 Miscellaneous Notes* Telephone Encounter - Emilee Lkae Ma - 10/17/2022 2:19 PM EDT Pt [...] done 10/09/22. Pt can be reached at [phone]. Please review. documented in this encounterGeorgetown Behavioral Hospital07-06-2023 History of Present illness Narrative* RT Anthony(R) [...] 17, 2022 2:46 PM documented in this encounterGeorgetown Behavioral Hospital07-06-2023 History of Present illness Narrative* Halle Dale MD - 10/17/2022 10:48 AM EDT PROGRESS NOTE 10/17/2022 Chief Complaint: Mr. Adina David is here to follow up his hematological conditions (CLL, MPN, VTE, bleeding) Interval History: He remains on hydrea 1000 mg daily. Remains on Eliquis 2.5 mg BID. He underwent endoscope at [facility] main last week, found bleeding source s/p [...] Abs. Lymph 0.84 - 2.85 thou/cmm Abs. Asotin 0.30 - 0.82 thou/cmm Abs. Eosin 0.04 [...] Lymph 1.00 - 4.00 k/uL 28.70 (H) Asotin% % 1.0 Abs Asotin <0.87 k/uL 0.38 Eosin% % 0.0 Abs [...] CT A/P w/ IV contrast on 01/19/2022 ([facility]) Right inguinal hernia containing loops of bowel. [...] 08/28, and 10/10. He underwent endoscope at [facility] on 10/09/2022, found bleeders s/p endoscopic hemastatic [...] proportion; a sequence change of c. 1514G>A (p.[id number]) in exon 10 was detected at approximately [...] LE DVT scan, if clear, consider d/c Diana. 6. BPH - LUTS from BPH. - PSA 8.67. - prior prostate biopsy showed no evidence of cancer. - Being followed and managed by urology 7. GIB - admitted to [facility] in 04/2021 with Hb 4.8, transfused 7 [...] 08/16, 08/28, 10/10. He underwent endoscope at [facility] on 10/09/2022, found bleeders s/p endoscopic hemostatic [...] Level: 4 - Moderate documented in this encounterGeorgetown Behavioral Hospital07-05-2023 Miscellaneous Notes* Telephone Encounter - Jenn Alcala Ma - 10/16/2022 4:57 PM EDT Pt has appt tomorrow, 10/17 Requested Prescriptions Pending Prescriptions Disp Refills omeprazole (PRILOSEC) 40 mg capsule [Pharmacy Med Name: Omeprazole 40 MG Oral Capsule Delayed Release] 90 capsule 3 Sig: Take 1 capsule by mouth once daily Please review and advise. Jenn Alcala Ma documented in this encounterGeorgetown Behavioral Hospital06-29-2023 Miscellaneous Notes* Telephone Encounter - Derek Horne MA - 10/10/2022 10:32 AM EDT Pt came by saying he feels great, they found bleeding in his colon and got it with argon gas, whilehe feels great hes concerned his blood wont be at the low end of nornal, do you want another CBC tocheck? He also has an appoint ment on Friday. Derek Horne MA documented in this [facility]06-29-2023 Evaluation note* Diagnosis Stage 3 chronic kidney disease, unspecified whether stage 3a or 3b CKD (HCC)- Primary Acute blood loss anemia Acute posthemorrhagic anemia Severe anemia Other iron deficiency anemia documented in this encounter [facility] Nurse Note* Desire Croft LPN - 10/09/2022 [...] Instructions REFERRAL (RECOMMENDATION): None documented in this encounterGeorgetown Behavioral Hospital06-28-2023 History and physical note * Hortencia Gallardo [...] DATE: 10/09/2022 TIME: 1701 documented in this encounterGeorgetown Behavioral Hospital06-22-2023 Miscellaneous Notes* Telephone Encounter - Bailey Fox MA - 10/03/2022 10:25 AM EDT Spoke with pt informed him of Dr. Gallardo's message, sent instructions via . Pt verbalized understanding. documented in this encounterGeorgetown Behavioral Hospital06-21-2023 Miscellaneous Notes* Telephone Encounter - Deysi Licona [...] have family/friend present for procedure transport home:Patient/patient admissions representative was told that if they do [...] area. Any barriers to Patient learning: Patient/Patient Traffic Reporter responded appropriately on phone. Type of instruction given: Verbal by telephone contact. DEYSI Licona RN documented in this encounterGeorgetown Behavioral Hospital06-15-2023 Miscellaneous Notes* Telephone Encounter - Halle Dale [...] soon. Derek Horne MA documented in this encounterGeorgetown Behavioral Hospital06-06-2023 Miscellaneous Notes* Telephone Encounter - Halle Dale MD - 09/17/2022 5:14 PM EDT We will transfuse if Hb<8. Please let him know. * Telephone Encounter - Derek Horne MA - 09/17/2022 11:38 AM EDT Pt wanted to know if he could get more blood since after his second unit he was only up to 8.5 Derek Horne MA documented in this encounterGeorgetown Behavioral Hospital06-05-2023 History of Present illness Narrative* Wilton Palma [...] pounds in a week? No Based on airconditioning plant operator, the following disposition is advised: No symptoms or symptoms present, not severe. Routed to: No Action Needed NYDIA Education Provided this Outreach: No Wilton Palma RN September 16, 2022 10:34 AM documented in this encounterGeorgetown Behavioral Hospital05-09-2023 History of Present illness Narrative* Halle Dale [...] history of skin cancer bcc (r shoulder) 2016, scc (l lateral lower leg) 2019 Renal cancer (HCC) Stage 3 Sleep apnea [...] Abs. Lymph 0.84 - 2.85 thou/cmm Abs. Asotin 0.30 - 0.82 thou/cmm Abs. Eosin 0.04 [...] Lymph 1.00 - 4.00 k/uL 31.03 (H) Asotin% % 1.0 Abs Asotin <0.87 k/uL 0.43 Eosin% % 0.0 Abs [...] CT A/P w/ IV contrast on 01/19/2022 ([facility]) Right inguinal hernia containing loops of bowel. [...] proportion; a sequence change of c. 1514G>A (p.[id number]) in exon 10 was detected at approximately [...] by urology 7. GIB - admitted to [facility] in 04/2021 with Hb 4.8, transfused 7 [...] Level: 4 - Moderate documented in this encounterGeorgetown Behavioral Hospital05-08-2023 Miscellaneous Notes* Telephone Encounter - Derek Horne [...] best option or not documented in this encounterGeorgetown Behavioral Hospital05-04-2023 History of Present illness Narrative* Wilton Palma, MEHUL - 08/15/2022 11:58 AM EDT CDM Telephonic Outreach Provider Action/FYI : Routed updates to Dr. Ramos CDM: CKD Spk with Pt he denies new or worsening Urinary/ CKD symptoms Pt has Appt with Dr.Charles Sorensen Pulmonology with [facility], Pt is in process of scheduling a sleep study at [facility]. Pt reports will have a blood transfusion [...] to talk about today? Yes Based on airconditioning plant operator, the following disposition is advised: Symptoms present, not severe. Routed to: No Action Needed NYDIA Education Provided this Outreach: No Wilton Palma RN August 15, 2022 12:27 PM documented in this encounterGeorgetown Behavioral Hospital05-02-2023 History of Present illness Narrative* Deysi Melchor [...] 2022 TIME: 9:06 AM documented in this encounterGeorgetown Behavioral Hospital05-01-2023 Miscellaneous Notes* Telephone Encounter - Derek Horne [...] 8.1 Derek Horne MA documented in this encounterGeorgetown Behavioral Hospital04-26-2023 Instructions* Patient Instructions* Hortencia Gallardo MD - [...] If you do not have a responsible sprinkler driver (family member or friend) withyou to take you home, your exam cannot be done with sedation and will be cancelled. Please bring a list of all of your current medications, including any Ucsf-met-Sbocpje medications with you. Medications If you take [...] your exam. 2 03/2019 documented in this encounterGeorgetown Behavioral Hospital04-26-2023 History of Present illness Narrative* Hortencia Gallardo MD - 08/07/2022 10:00 AM EDT SMALL BOWEL DISEASES AND NUTRITION FOLLOW-UP VISIT Date of direct communication: 08/07/2022 [x] I have communicated my name and active licensure. The patient's identity and physical location were verified at the time of this visit. Either the patientor their legal admissions representative has been informed of the risks [...] FOLLOW-UP: Post-procedure Hortencia Gallardo MD 08/07/2022 Staff Mail Delivery Supervisor, [facility] [place] PRIMARY PROBLEM: iron def anemia, small bowel [...] - - Capsule study 2019: 1st gastric image: 1st duodenal image: 36 1st cecal image:does not reach the [...] co- ordination of care. documented in this encounterGeorgetown Behavioral Hospital04-24-2023 Miscellaneous Notes* Telephone Encounter - Jana Mackey [...] good idea. Please advise. documented in this encounterGeorgetown Behavioral Hospital04-21-2023 Miscellaneous Notes* Telephone Encounter - Halle Dale [...] results. Derek Horne MA documented in this encounterGeorgetown Behavioral Hospital04-20-2023 Miscellaneous Notes* Telephone Encounter - Marlene Blanco Pss - 08/01/2022 10:23 AM EDT Sleep Medicine Referral information [facility]. Ref# [id number]. [facility] Specialty office will call the patient within 7-10 business days to set this appointment up. documented in this encounterGeorgetown Behavioral Hospital04-17-2023 Miscellaneous Notes* Telephone Encounter - Halle Dale MD - 07/29/2022 9:07 AM EDT Prescription is sent in today. Going forward, he needs to ask his PCP Dr. Ramos about refill and dose adjustment. Please let him know. * Telephone Encounter - Derek Horne MA - 07/26/2022 10:55 AM EDT Pt called to see if Dr Dale can have his zolpidem released earlier as he is out and he would like itincreased to 10 mg. Derek Horne MA documented in this encounterGeorgetown Behavioral Hospital04-13-2023 Miscellaneous Notes* Telephone Encounter - Darrell Cabezas - 07/25/2022 1:41 PM EDT Order, last office note, and demographics were faxed to Dr Rios as requested * Telephone Encounter - Bernarda Sarah RN - 07/25/2022 12:25 PM EDT Patient requests a referral to pulmonology Dr. Pagan at [phone]. documented in this encounterGeorgetown Behavioral Hospital04-13-2023 Miscellaneous Notes* Telephone Encounter - Yuko Lauren RN - 07/25/2022 11:08 AM EDT Updated message on cover my meds: Your request has been approved Yuko Lauren RN * Telephone Encounter - Yuko Lauren RN - 07/25/2022 11:04 AM EDT Prior auth for Repatha submitted on cover my meds website. End message as follows: Your information [facility] been [facility] D. [facility] Medicare Part D will review the request and will issue a decision, typically within 1-3 days from your submission. You can check the updated outcome later by reopening this request. If [employer] Medicare Part D has not responded in 1-3 days or if you have any questions about your ePA request, please contact [facility] Medicare Part D at [phone]. If you think there may be a problem with your PA request, use our live chat feature at the bottom right Yuko Lauren RN documented in this encounterGeorgetown Behavioral Hospital04-10-2023 Miscellaneous Notes* Telephone Encounter - Pratibha Haque MA - 07/22/2022 9:05 AM EDT Patient scheduled 07/30. * Telephone Encounter - Ulises Ramos DO - 07/22/2022 7:37 AM EDT Get him a fu next week to review the pft and discuss all his other stuff as well documented in this encounterGeorgetown Behavioral Hospital04-07-2023 Miscellaneous Notes* Telephone Encounter - Fidencio Mon RN - 07/19/2022 10:16 AM EDT Pt scheduled for virtual visit on 08/07/22 to discuss POC. Fidencio Mon RN * Telephone Encounter - Tereza Sunshine - 07/11/2022 10:46 AM EDT 07/11/22 Message from patient for Jeison Farfan MD put patient back on Eliquis for DVT Tereza documented in this encounterGeorgetown Behavioral Hospital04-03-2023 History of Present illness Narrative* Sean Mays [...] treatment was advised. He was admitted to [facility] in October 2018 with chest tightness with [...] to be anemic. [facility] and underwentGI evaluation with endoscopy and colonoscopy. Colonoscopy identified colonic AV malformation and internal hemorrhoid bleeding. His Plavix was interrupted for a month. He had completed 3 months of dual antiplatelet therapy prior to this GI bleed. Was hospitalized again in March 2019 with electrolyte issues including hypocalcemia hypo kalemiaand hypomagnesemia. He sees Dr. Gruber Patient transitioned his care to [place] in March 2019. Patient had a mechanical [...] hydroxyurea PAST CARDIAC HISTORY: CAD status post NH, October 2018 status post LAD stent Hypertension [...] Lymph 1.00 - 4.00 k/uL 37.53 (H) Asotin% % 2.0 Abs Asotin <0.87 k/uL 0.84 Eosin% % 0.0 Abs [...] 3 mm x 22 mm everolimus eluting chilkat chromium stent to his LAD. S/p plavix [...] decision making from TODAY Sean Mays MD, FACC documented in this encounterGeorgetown Behavioral Hospital04-03-2023 Nurse Note* Gayle Ramires MA - 07/15/2022 10:11 AM EDT Patient has no cardiac complaints today. Gayle Ramires CMA documented in this encounterGeorgetown Behavioral Hospital04-03-2023 Miscellaneous Notes* Addendum Note - Ulises Ramos [...] for 1 mos supply documented in this encounterGeorgetown Behavioral Hospital03-30-2023 Miscellaneous Notes* Telephone Encounter - Thi Librado Pedroza - 07/11/2022 10:[address] Gallardo office notified and sent message to her. Items addressed in this encounter: Telephone Encounter Thi Librado Pedroza July 11, 2022 10:47 AM 10:47 AM * Telephone Encounter - Darrell Cabezas - 07/11/2022 10:[address] Gallardo and let her know I have to put him back on eliquis for a new dvt. I am checking his hemoglobin in two weeks. 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 [...] LIST Deng (Acute Kidney Injury) ([facility]) - 01/07/2019 (D priority) Iron Deficiency Anemia Due to Chronic Blood Loss - 02/19/2022 Vitamin D Deficiency - 07/17/2021 Obesity, Class I, Bmi 30-34.9 - 05/28/2021 Acute Blood Loss Anemia - 05/16/2021 Covid-19 Virus Infection - 05/16/2021 Severe Protein-Calorie Malnutrition ([facility]) - 05/09/2021 Severe Anemia - 05/02/2021 Cira (Obstructive Sleep Apnea) - 05/01/2021 Deep Vein Thrombosis (Dvt) of Femoral Vein of Left Lower Extremity ([facility]) - 03/14/2021 Leg Swelling - 03/14/2021 Leukocytosis - 03/31/2019 Essential Thrombocythemia ([facility]) - 03/31/2019 Ckd (Chronic Kidney Disease) Stage 3, Gfr 30-59 Ml/Min ([facility]) - 03/31/2019 Hypertriglyceridemia 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 Iron deficiency anemia due to chronic blood loss - ICD9: 280.0, ICD10: D50.0 (primary diagnosis) - CBC + DIFF - US DVT LOWER RIGHT - US EXTREMITY MASS/FLUID COLLECTION LEFT 2. Acute deep vein thrombosis (DVT) of popliteal vein of left lower extremity (HCC) - ICD9: 453.41,ICD10: I82.432 Clot extending, rough [...] INJECTOR Ulises Ramos DO documented in this encounterGeorgetown Behavioral Hospital03-23-2023 Miscellaneous Notes* Telephone Encounter - Yuko Lauren RN - 07/04/2022 11:13 AM EDT Spoke with pt. Notified of test results and Dr Mays's recommendations. Pt voices understanding. Yuko Laruen, RN * Telephone Encounter - Sean Mays MD - 07/04/2022 11:02 AM EDT Excellent lipid panel with LDL of 40. Continue with Repatha. Thanks documented in this encounterGeorgetown Behavioral Hospital03-23-2023 Miscellaneous Notes* Telephone Encounter - Tereza Sunshine - 07/04/2022 9:44 AM EDT 07/04/22 Patient calling to talk to Dr Gallardo if she has communicated with with him PCP to find out what the next step is going to be. 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 [...] LIST Deng (Acute Kidney Injury) ([facility]) - 01/07/2019 (D priority) Iron Deficiency Anemia Due to Chronic Blood Loss - 02/19/2022 Vitamin D Deficiency - 07/17/2021 Obesity, Class I, Bmi 30-34.9 - 05/28/2021 Acute Blood Loss Anemia - 05/16/2021 Covid-19 Virus Infection - 05/16/2021 Severe Protein-Calorie Malnutrition ([facility]) - 05/09/2021 Severe Anemia - 05/02/2021 Cira (Obstructive Sleep Apnea) - 05/01/2021 Deep Vein Thrombosis (Dvt) of Femoral Vein of Left Lower Extremity ([facility]) - 03/14/2021 Leg Swelling - 03/14/2021 Leukocytosis - 03/31/2019 Essential Thrombocythemia ([facility]) - 03/31/2019 Ckd (Chronic Kidney Disease) Stage 3, Gfr 30-59 Ml/Min ([facility]) - 03/31/2019 Hypertriglyceridemia 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 S/P Drug Eluting Coronary Stent Placement - 11/25/2018 Stage 2 Chronic Kidney Disease - 11/10/2018 Nstemi (Non-St Elevated Myocardial Infarction) ([facility]) - 10/24/2018 Bph (Benign Prostatic Hyperplasia) - 10/05/2018 History of Right Nephrectomy - 10/05/2018 Nocturia - 03/19/2018 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 Cll (Chronic Lymphocytic Leukemia) ([facility]) - 06/13/2017 Iron Deficiency Anemia - 06/13/2017 Renal Cancer, Right ([facility]) - 04/29/2017 Essential Hypertension Multiple Lipomas Gerd (Gastroesophageal Reflux Disease) Comment: HAS GI - [place] H/O Resection of Large Bowel - 04/14/2004 [...] SPIROMETRY - BASELINE AND POST DILATOR - [id number] BL - COVID WITH FLUA+B, ROUTINE - RSV B/O 2. Deep vein thrombosis (DVT) of left lower extremity, unspecified chronicity, unspecified vein (HCC) - ICD9: 453.40, ICD10: I82.402 - [id number] BL - US DVT LOWER LT 3. Localized swelling, mass and lump, left upper limb - ICD9: 782.2, ICD10: R22.32 - US DVT LOWER LT 4. History of colonic polyps - ICD9: V12.72, ICD10: Z86.010 - COLONOSCOPY SCREENING Ulises Ramos DO documented in this encounterGeorgetown Behavioral Hospital03-20-2023 Miscellaneous Notes* Telephone Encounter - Essie Rivera LPN - 07/01/2022 11:29 AM EDT [facility] message requesting the following refill Refill(s) Requested: Requested Prescriptions Pending Prescriptions Disp Refills zolpidem (AMBIEN) 5 mg tablet [Pharmacy Med Name: Zolpidem Tartrate 5 MG Oral Tablet] 30 tablet 0 Sig: TAKE 1 TABLET BY MOUTH ONCE DAILY AT BEDTIME NEEDED FOR UP TO 30 DAYS ALLERGIES Allergen Reactions Doxycycline Intolerance Rash, diarrhea Penicillin Hives Penicillin V Potass* Other: See Comments (home) [phone] (cell) Last Office Visit Date: 06/21/2022 Last [facility] Visit: Visit date not found Future Appointment: 09/17/2022 The patients preferred pharmacy has been captured for this encounter? yes Request is for script(s) to be escript to pharmacy. Essie Rivera LPN documented in this encounterGeorgetown Behavioral Hospital03-17-2023 Miscellaneous Notes* Telephone Encounter - Alexia Mariscal [...] to nurse Pt only wants to see Drtete Pt does not want a MANAGER DIALYSIS or PA Please advise, Notify Pt documented in this encounterGeorgetown Behavioral Hospital03-15-2023 History of Present illness Narrative* Sia Hodge PT - 06/26/2022 7:47 PM EDT Episode [...] created on 03/18/22 through 05/17/22-extended through 07/30/22 [place] in home exercise program.-Progressing Patient will decrease [...] 45 Sia Hodge PT documented in this encounterGeorgetown Behavioral Hospital03-14-2023 History of Present illness Narrative* Wilton Palma RN - 06/25/2022 9:40 AM EDT [facility] TELEPHONIC OUTREACH Provider Action/FYI: CDM: CKD 2nd Call, left a message to verify symptom status, instructed to call PCP with any changes in condition or needs. Contact made with patient: No - Left message Hello my name is Wilton Palma RN your Database Tester [facility] the [facility] I am callingtoday for your bi-weekly check [...] RN - 06/24/2022 9:20 AM EDT [facility] TELEPHONIC OUTREACH Provider Action/FYI: CDM: CKD Left a message to verify symptom status, instructed to call PCP with any changes in condition or needs. Contact made with patient: No - Left message Hello my name is Wilton Palma RN your Database Tester [facility] the [facility] I am callingtoday for your bi-weekly check [...] 24, 2022 9:20 AM documented in this encounterGeorgetown Behavioral Hospital03-13-2023 History of Present illness Narrative* Kaleigh Mueller [...] 45 Kaleigh Mueller PTA documented in this encounterGeorgetown Behavioral Hospital03-10-2023 History of Present illness Narrative* Halle Dale MD - 06/21/2022 10:20 AM EST PROGRESS NOTE 06/21/2022 Chief Complaint: Mr. Aidna David is here to follow up his hematological conditions (CLL, MPN, VTE, bleeding) Interval History: He is on hydrea 500 mg twice daily. Reports doing well overall. He follows GI at [facility]. No further GIB. Supposed to start [...] Abs. Lymph 0.84 - 2.85 thou/cmm Abs. Asotin 0.30 - 0.82 thou/cmm Abs. Eosin 0.04 [...] Lymph 1.00 - 4.00 k/uL 37.53 (H) Asotin% % 2.0 Abs Asotin <0.87 k/uL 0.84 Eosin% % 0.0 Abs [...] CT A/P w/ IV contrast on 01/19/2022 ([facility]) Right inguinal hernia containing loops of bowel. 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 GIB - admitted to [facility] in 04/2021 with Hb 4.8, transfused 7 [...] Level: 4 - Moderate documented in this encounterGeorgetown Behavioral Hospital03-08-2023 History of Present illness Narrative* Sia Hodge [...] 45 Sia Hodge PT documented in this encounterGeorgetown Behavioral Hospital03-03-2023 History of Present illness Narrative* Sia Hodge [...] 50 Sia Hodge PT documented in this encounterGeorgetown Behavioral Hospital03-03-2023 Miscellaneous Notes* Telephone Encounter - Bernarda Sarah RN - 06/14/2022 12:20 PM EST Mon's requests chart notes discussing the use and benefit of CPAP. Can you addend this in his last office visit? Please fax to [phone]. documented in this encounterGeorgetown Behavioral Hospital03-01-2023 History of Present illness Narrative* Sia Hodge [...] 45 Sia Hodge PT documented in this encounterGeorgetown Behavioral Hospital02-28-2023 Instructions* Patient Instructions* Destin Jacinto - 06/11/2022 [...] in clinic as needed documented in this encounterGeorgetown Behavioral Hospital02-28-2023 History of Present illness Narrative* Buffy Min [...] Adult) Pulse 92 Ht 177.8 cm (5' 10) Wt 90.7 kg (200 lb) SpO2 95% [...] polyp in D2, appears hyperplastic Rhodes's esophagus, [place] class C0M2. Biopsies taken to rule out [...] taken to rule out H. Pylori, adenoma, Rhodes's. CONVERTED FINAL DIAGNOSIS FINAL DIAGNOSIS: A) STOMACH, [...] review including available outside records, performing the ijgo-[id number]-bemd history and physical exam, and documenting the encounter in the EMR including the time spent by Dr. Yonas Oro. 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 [...] LIST Deng (Acute Kidney Injury) ([facility]) - 01/07/2019 (D priority) Iron Deficiency Anemia [...] Vein of Left Lower Extremity ([facility]) - 03/14/2021 Leg Swelling - 03/14/2021 Leukocytosis - 03/31/2019 Essential Thrombocythemia ([facility]) - 03/31/2019 Ckd (Chronic Kidney Disease) Stage 3, Gfr 30-59 Ml/Min ([facility]) - 03/31/2019 Hypertriglyceridemia 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 S/P Drug Eluting Coronary Stent Placement - 11/25/2018 Stage 2 Chronic Kidney Disease - 11/10/2018 Nstemi (Non-St Elevated Myocardial Infarction) ([facility]) - 10/24/2018 Bph (Benign Prostatic Hyperplasia) - 10/05/2018 History of Right Nephrectomy - 10/05/2018 Nocturia - 03/19/2018 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 Cll (Chronic Lymphocytic Leukemia) ([facility]) - 06/13/2017 Iron Deficiency Anemia - 06/13/2017 Renal Cancer, Right ([facility]) - 04/29/2017 Essential Hypertension Multiple Lipomas Gerd [...] F) (Left Tympanic) Ht 177.8 cm (5' 10) Wt 94.1 kg (207 lb 6.4 oz) SpO2 94% BMI 29.76 kg/m ASSESSMENT/PLAN: 1. Bronchitis - ICD9: 490, ICD10: J40 Will tx w antibiotic Ulises Ramos DO documented in this encounterGeorgetown [facility]02-20-2023 History of Present illness Narrative* Sia Hodge, PT - 06/03/2022 4:46 PM EST Episode [...] 43 Sia Hodge PT documented in this encounterGeorgetown [facility] Hospital02-17-2023 History of Present illness Narrative* Sia Hodge [...] created on 03/18/22 through 05/17/22-extended through 07/30/22 [place] in home exercise program.-Progressing Patient will decrease [...] Patient to be seen for Therapeutic exercise (31829), Neuromuscular re-education (30452), Manual therapy (22380), Therapeutic activities (06113), Self-snf management (39969), Gait Training (71562), Patient/Family/Caregiver Education PLAN FOR NEXT VISIT: general [...] 43 Sia Hodge PT documented in this encounterGeorgetown Behavioral Hospital02-09-2023 History of Present illness Narrative* Wilton Palma RN - 05/23/2022 10:11 AM EST INSIGHT CDM TELEPHONIC OUTREACH Provider Action/FYI: CKD: CKD Spk [...] like to speak with a social work maintenance team leader to help give you support for any [...] you up for automated weekly questionnaires through [facility]. This is an easy way for us [...] 23, 2022 10:11 AM documented in this encounterGeorgetown Behavioral Hospital02-08-2023 Miscellaneous Notes* Telephone Encounter - Essie Rivera LPN - 05/22/2022 3:20 PM EST Pharmacy [facility] message requesting the following refill Refill(s) Requested: Requested Prescriptions Pending Prescriptions Disp Refills zolpidem (AMBIEN) 5 mg tablet [Pharmacy Med Name: Zolpidem Tartrate 5 MG Oral Tablet] 30 tablet 0 Sig: TAKE 1 TABLET BY MOUTH ONCE DAILY AT BEDTIME NEEDED FOR UP TO 30 DAYS ALLERGIES Allergen Reactions Doxycycline Intolerance Rash, diarrhea Penicillin Hives Penicillin V Potass* Other: See Comments (home) [phone] (cell) Last Office Visit Date: 03/22/2022 Last [facility] Visit: Visit date not found Future Appointment: 06/21/2022 The patients preferred pharmacy has been captured for this encounter? yes Request is for script(s) to be escript to pharmacy. Essie Rivera LPN documented in this encounterGeorgetown Behavioral Hospital01-31-2023 Miscellaneous Notes* Telephone Encounter - Pari Pickett Ma - 05/14/2022 5:04 PM EST Patient phones requesting refills as follows: Last visit 05/06/2022 Requested Prescriptions Pending Prescriptions Disp Refills magnesium oxide (MAG-OX) 400 mg (241.3 mg magnesium) tablet [Pharmacy Med Name: Magnesium Oxide 400(241.3 Mg) MG Oral Tablet] 30 tablet 0 Sig: Take 1 tablet by mouth once daily Please review and advise. Pari Pickett Ma documented in this encounterGeorgetown Behavioral Hospital01-17-2023 Miscellaneous Notes* Telephone Encounter - Vivian Galvin RN - 04/30/2022 1:22 PM EST PT wanted to know if Dr. Gallardo had reviewed his most recent blood work results from 04/23/22 to see if he is doing better and his bleeding is improving. Has had several iron infusions. Let him know would ask MD. Vivian Galvin RN documented in this encounterGeorgetown Behavioral Hospital01-10-2023 Miscellaneous Notes* Telephone Encounter - Vivian Galvin RN - 04/23/2022 8:37 AM EST Details for this will be documented in other encounter, where trying to continue to work on PA for med. Vivian Galvin RN * Telephone Encounter - Kristie Anderson - 04/22/2022 11:08 AM EST Patient left a voicemail with cgrt admin regarding a prescription they are trying to get from Dr. Gallardo called gina, patient stated that there has been trouble getting that but per insurance provider if medication is billed under Part B instead of Part D, then that should work and cost less money. Patient documented in this encounterGeorgetown Behavioral Hospital01-05-2023 History of Present illness Narrative* Wilton Palma RN - 04/18/2022 1:06 PM EST INSIGHT CDM TELEPHONIC OUTREACH Provider Action/FYI: CDM: CKD Left a message to verify symptom status and needs, Instructed to call PCP with any changes in condition Contact made with patient: No - Left message Hello my name is Wilton Palma RN your Database Tester from the [facility] I am callingtoday for your bi-weekly check [...] 18, 2022 1:06 PM documented in this encounterGeorgetown Behavioral Hospital01-04-2023 Miscellaneous Notes* Telephone Encounter - Annmarie Ronquillo [...] Provider: ANNMARIE RONQUILLO PA-C documented in this encounterGeorgetown Behavioral Hospital01-04-2023 History of Present illness Narrative* RT Vandana(Placido) - 04/17/2022 1:10 PM EST Radiology Service [...] 17, 2022 1:16 PM documented in this encounterGeorgetown Behavioral Hospital01-04-2023 Instructions* Patient Instructions* Annmarie Ronquillo PA-C - 04/17/2022 11:19 AM EST For X-rays, go to: [facility], [place] [facility], [place] [id number] Call [phone] Imaging Friday: Closed Friday: 7 a.m. - 6:30 p.m. Friday: 7 a.m. - 6:30 p.m. Friday: 7 a.m. - 6:30 p.m. : 7 a.m. - 6:30 p.m. Friday: 7 a.m. - 6:30 p.m. Friday: 8 a.m. - Noon documented in this encounterGeorgetown Behavioral Hospital01-04-2023 History of Present illness Narrative* Annmarie Ronquillo PA-C - 04/17/2022 11:08 AM EST This note was created using [email or web address]. 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 Completed questions in [employer] system and sent to insurance, will await next steps. Vivian Galvin RN documented in this encounterGeorgetown Behavioral Hospital12-22-2022 Miscellaneous Notes* Telephone Encounter - Derek Horne MA - 04/04/2022 4:39 PM EST Pt informed. Derek Horne MA * Telephone Encounter - Halle Dale MD - 04/04/2022 12:19 PM EST I wrote back to his GI doc. Waiting for her to put in the orders for sandostatin LAR, then we can schedule monthly injection at [facility]. Please let him know. Thanks * Telephone Encounter - Derek Horne MA - 04/04/2022 11:09 AM EST Pt called to see if Dr Dale heard from his doctor recently about switching medications to Sandostatin to help with the bleeding in his intestines. Derek Horne MA documented in this encounterGeorgetown Behavioral Hospital12-21-2022 History of Present illness Narrative* Sia Hodge PT - 04/03/2022 2:58 PM EST Episode [...] 43 Sia Hodge PT documented in this encounterGeorgetown Behavioral Hospital12-21-2022 Miscellaneous Notes* Telephone Encounter - Essie Rivera LPN - 04/03/2022 10:52 AM EST Pharmacy [facility] message requesting the following refill Refill(s) Requested: Requested Prescriptions Pending Prescriptions Disp Refills zolpidem (AMBIEN) 5 mg tablet [Pharmacy Med Name: Zolpidem Tartrate 5 MG Oral Tablet] 30 tablet 0 Sig: TAKE 1 TABLET BY MOUTH ONCE DAILY AT BEDTIME FOR UP TO 30 DAYS ALLERGIES Allergen Reactions Doxycycline Intolerance Rash, diarrhea Penicillin Hives Penicillin V Potass* Other: See Comments (home) [phone] (cell) Last Office Visit Date: 03/22/2022 Last Distance Health Visit: Visit date not found Future Appointment: 06/21/2022 The patients preferred pharmacy has been captured for this encounter? yes Request is for script(s) to be escript to pharmacy. Essie Rivera LPN documented in this encounterGeorgetown Behavioral Hospital12-14-2022 History of Present illness Narrative* Hortencia Gallardo [...] needed -Start Sandostatin LAR 20mg monthly with police officer -If Hgb can be maintained with the [...] loss Hortencia Gallardo MD 03/27/22 0800 Staff Mail Delivery Supervisor [facility] , REFERRING PROVIDER: Aly Cannon [address] [facility] [id number] REASON FOR REFERRAL: Small bowel bleeding HISTORY: [...] when he goes to appointments. Attends Right MVERSE class twice a week. Doing PT. -10 [...] of records, and documentation. documented in this encounterGeorgetown Behavioral Hospital12-12-2022 History of Present illness Narrative* Kaleigh Mueller [...] 43 Kaleigh Mueller PTA documented in this encounterGeorgetown Behavioral Hospital12-09-2022 History of Present illness Narrative* Halle Dale [...] had US kidney and CT abdomen at [facility] to monitor his kidney cancer with negative [...] Abs. Lymph 0.84 - 2.85 thou/cmm Abs. Asotin 0.30 - 0.82 thou/cmm Abs. Eosin 0.04 [...] Lymph 1.00 - 4.00 k/uL 31.18 (H) Asotin% % 17.2 Abs Asotin <0.87 k/uL 7.96 (H) Eosin% % 0.2 [...] CT A/P w/ IV contrast on 01/19/2022 ([facility]) Right inguinal hernia containing loops of bowel. [...] proportion; a sequence change of c. 1514G>A ([id number]) in exon 10 was detected at approximately [...] by urology 7. GIB - admitted to [facility] in 04/2021 with Hb 4.8, transfused 7 [...] Level: 4 - Moderate documented in this encounterGeorgetown Behavioral Hospital12-08-2022 Miscellaneous Notes* Telephone Encounter - Roland Borges Ma - 03/21/2022 9:04 AM EST Called patient and left message that their test results are viewable on [facility], if they have any questions to call the office. Roland Borges MA * Telephone Encounter - Roland Borges Ma - 03/21/2022 9:04 AM EST ----- Message from Loy Mcallister MD sent at 03/21/2022 9:02 AM EST ----- Notify patient PSA remains stable at 5.28. documented in this encounterGeorgetown Behavioral Hospital12-05-2022 History of Present illness Narrative* Wilton Palma [...] like to speak with a social work maintenance team leader to help give you support for any [...] you up for automated weekly questionnaires through [facility]. This is an easy way for us [...] my name is Wilton Palma RN your Database Tester from [facility] I am callingtoday for your bi-weekly check in. I am sorry I missed your call. I will reach out to you again tomorrow. (if the third call I will reach out to you again next week) Enter next patient outreach date for the following day using the Track Pt Outreach. End outreach. MEHUL Knowles RN March 14, 2022 11:10 AM documented in this encounterGeorgetown Behavioral Hospital12-05-2022 Miscellaneous Notes* Telephone Encounter - Alison Ibarra [...] Penicillin V Potass* Other: See Comments (home) [phone] (cell) Last Office Visit Date: 12/20/2021 Last [facility] Visit: Visit date not found Future Appointment: 03/22/2022 The patients preferred pharmacy has been captured for this encounter? yes Request is for script(s) to be escript to pharmacy. Alison Ibarra RN documented in this encounterGeorgetown Behavioral Hospital11-09-2022 Miscellaneous Notes* Telephone Encounter - Courtney Cabezas - 02/20/2022 5:14 PM EST Referral information submitted to [facility]. Ref# [id number]. [facility] Specialty office will call the patient within 7-10 business days to set this appointment up. * Telephone Encounter - Juana Guerra RN - 02/20/2022 2:23 PM EST Patient requesting order for physical therapy following hernia repair surgery. documented in this encounterGeorgetown Behavioral Hospital11-04-2022 Miscellaneous Notes* Telephone Encounter - Cherri Contreras - 02/15/2022 12:24 PM EDT Andei from Dr. [facility] called and wanted you to look at pt's CT. He has swollen kidney. Would like pt to see you roque. Mari Fenton documented in this encounterGeorgetown Behavioral Hospital11-02-2022 Miscellaneous Notes* Telephone Encounter - Derek Horne MA - 02/13/2022 2:16 PM EDT Pt came in to let us know he had emergency hernia surgery 01/20/22 and blood work he stated the US showed something on his L Ureter. He wanted to keep Dr Dale in the loop. Derek Horne MA documented in this encounterGeorgetown Behavioral Hospital11-02-2022 History of Present illness Narrative* RT Arvin(R) [...] 13, 2022 10:10 AM documented in this encounterGeorgetown Behavioral Hospital2022 History of Present illness Narrative* Louie Silva RN - 02/06/2022 10:25 AM EDT INSIGHT CDM TELEPHONIC OUTREACH Provider Action/FYI: Routed updates to Dr. Ramos- No action required Spk with Pt he reports 01/19/22 had severe Right Abd/ groin pain, squad called Pt was transported [facility]. Pt reports underwent Hernia repair on [...] chills. Pt had a CT while at [facility] and is has contacted his City Detective for a follow up Appt related to [...] like to speak with a social work maintenance team leader to help give you support for any [...] you up for automated weekly questionnaires through [facility]. This is an easy way for us [...] 06, 2022 10:25 AM documented in this [facility]10-13-2022 Miscellaneous Notes* Telephone Encounter - Emilee Lake [...] wants him to do? documented in this [facility]10-06-2022 Instructions* Patient Instructions* Loy Mcallister MD - 01/17/2022 3:33 PM EDT Its good to see you today. Please continue with a PSA every 6 months. I'll see you annually provided your symptoms are stable. documented in this [facility]10-06-2022 History of Present illness Narrative* Loy Mcallister MD - 01/17/2022 2:57 PM EDT Images from the original note were not included. [facility] ESTABLISHED PATIENT OFFICE VISIT HISTORY OF PRESENT [...] history of skin cancer bcc (r shoulder) 2016, scc (l lateral lower leg) 2018 Renal [...] Never Pulse 97 Ht 177.8 cm (5' 10) SpO2 98% BMI 29.27 kg/m Physical Exam [...] extrapolated by contextual derivation. documented in this encounterGeorgetown Behavioral Hospital10-06-2022 Miscellaneous Notes* Telephone Encounter - Ashley Li Cma - 01/17/2022 9:44 AM EDT Patient called stated he was planning on having labs done and was wondering if you wanted another PSA done any time soon.Please advise. Ashley Li Cma documented in this encounterGeorgetown Behavioral Hospital10-05-2022 Miscellaneous Notes* Telephone Encounter - Pratibha Haque MA - 01/16/2022 9:27 AM EDT Separate [employer] message sent to [facility]. Added in other message that this picture was sent in. documented in this encounterGeorgetown Behavioral Hospital09-15-2022 Miscellaneous Notes* Telephone Encounter - Quyen Thomason Cma - 12/27/2021 2:50 PM EDT Called patient and left a voicemail notifying patient that I would send him a message in [facility] with results. Quyen Thomason Cma * Telephone Encounter - Ashley Li Cma - 12/26/2021 3:21 PM EDT Called patient to advise of psa results, no answer, I have left message for return call. Ashley Li Cma * Telephone Encounter - Ashley Guillermo Lou - 12/26/2021 3:21 PM EDT ----- Message from Loy Mcallister MD sent at 12/26/2021 12:50 PM EDT ----- Notify patient PSA stable at 6.95 documented in this encounterGeorgetown Behavioral Hospital09-07-2022 History of Present illness Narrative* Louie Silva [...] like to speak with a social work maintenance team leader to help give you support for any [...] you up for automated weekly questionnaires through [facility]. This is an easy way for us [...] 19, 2021 3:50 PM documented in this encounterGeorgetown Behavioral Hospital08-31-2022 History of Present illness Narrative* Wilbert Watkins MD - 12/12/2021 4:00 PM EDT VIRTUAL VISIT PROGRESS NOTE This is a virtual visit using [facility] video visit. It required patient-provider interaction for [...] to the hospital with presyncope. Admitted to [facility], transfused 7 units pRBC, Hgb of 4 [...] Mr. David, a capsule endoscopy performed at [facility] revealed small bowel angioectasias. Some of these [...] PACCevaluation as well as clearance from his education and development manager particularly if the stress test is indicated. Mr. David I will discuss this further early next week. I spent a total of 40 minutes on the date of the service which included preparing to see the patient and [id number] patient care documented in this encounterGeorgetown Behavioral Hospital08-26-2022 History of Present illness Narrative* Sia Hodge PT - 12/07/2021 2:43 PM EDT Episode [...] 43 Sia Hodge PT documented in this encounterGeorgetown Behavioral Hospital08-23-2022 Miscellaneous Notes* Telephone Encounter - Karina Delgado Coord - 12/04/2021 12:35 PM EDT Patient called our office today as he said that [facility] for a [facility] forhis bleeding lesions. I asked him more information on if he needs to see a surgeon or a GI doctor. He wasn't sure. He will call Dr. Morrow's office to find out. I provided him our office number if heneeds surgery evaluation and provided him the GI Scheduling line if he needs GI. documented in this encounterGeorgetown Behavioral Hospital08-22-2022 History of Present illness Narrative* Ulises Ramos DO - 12/03/2021 2:16 PM EDT Here for chronic diarrhea, GI doc going to get him scope [facility] but the diarrhea persists. 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 [...] LIST Deng (Acute Kidney Injury) ([facility]) - 01/07/2019 (D priority) Vitamin D Deficiency - 07/17/2021 Obesity, Class I, Bmi 30-34.9 - 05/28/2021 Acute Blood Loss Anemia - 05/16/2021 Covid-19 Virus Infection - 05/16/2021 Severe Protein-Calorie Malnutrition ([facility]) - 05/09/2021 Severe Anemia - 05/02/2021 Cira (Obstructive Sleep Apnea) - 05/01/2021 Deep Vein Thrombosis (Dvt) of Femoral Vein of Left Lower Extremity ([facility]) - 03/14/2021 Leg Swelling - 03/14/2021 Leukocytosis - 03/31/2019 Essential Thrombocythemia ([facility]) - 03/31/2019 Ckd (Chronic Kidney Disease) Stage 3, Gfr 30-59 Ml/Min ([facility]) - 03/31/2019 Hypertriglyceridemia 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 S/P Drug Eluting Coronary Stent Placement - 11/25/2018 Stage 2 Chronic Kidney Disease - 11/10/2018 Nstemi (Non-St Elevated Myocardial Infarction) ([facility]) - 10/24/2018 Bph (Benign Prostatic Hyperplasia) - 10/05/2018 History of Right Nephrectomy - 10/05/2018 Nocturia - 03/19/2018 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 Cll (Chronic Lymphocytic Leukemia) ([facility]) - 06/13/2017 Iron Deficiency Anemia - 06/13/2017 Renal Cancer, Right ([facility]) - 04/29/2017 Essential Hypertension Multiple Lipomas Gerd (Gastroesophageal Reflux Disease) Comment: HAS GI - [place]ZAK H/O Resection of Large Bowel - 04/14/2004 [...] TABLET Ulises Ramos DO documented in this encounterGeorgetown Behavioral Hospital08-20-2022 History of Present illness Narrative* Sia Hodge, PT - 12/01/2021 10:58 AM EDT Episode [...] 43 Sia Hodge PT documented in this encounterGeorgetown Behavioral Hospital08-11-2022 Miscellaneous Notes* Telephone Encounter - Alison Ibarra [...] Doxycycline Intolerance Rash, diarrhea Penicillin Hives (home) [phone] (cell) Last Office Visit Date: 09/19/2021 Last Distance Health Visit: Visit date not found Future Appointment: 12/20/2021 The patients preferred pharmacy has been captured for this encounter? yes Request is for script(s) to be escript to pharmacy. Alison Ibarra RN documented in this encounterGeorgetown Behavioral Hospital08-08-2022 Miscellaneous Notes* Telephone Encounter - Derek Horne [...] him. Derek Horne MA documented in this encounterGeorgetown Behavioral Hospital08-08-2022 History of Present illness Narrative* Kaleigh Mueller [...] Tired sore slipped in hot tub this weekend Pain: Pain Pain Level: 0 Pain Location: [...] 43 Kaleigh Mueller PTA documented in this encounterGeorgetown Behavioral Hospital08-04-2022 History of Present illness Narrative* Louie Silva RN - 11/15/2021 3:14 PM EDT [facility] TELEPHONIC OUTREACH Provider Action/FYI: Call to Pt left a message to verify CKD or other symptoms or concerns. Contact made with patient: No - Left message Hello my name is Wilton Palma RN your Database Tester from the [facility] I am callingtoday for your bi-weekly check [...] Silva RN - 11/13/2021 4:08 PM EDT [facility] TELEPHONIC OUTREACH Provider Action/FYI: Call to Pt left a message to verify CKD or other symptoms or concerns. Contact made with patient: No - Left message Hello my name is Wilton Palma RN your Database Tester from the [facility] I am callingtoday for your bi-weekly check [...] 13, 2021 4:08 PM documented in this encounterGeorgetown Behavioral Hospital08-01-2022 History of Present illness Narrative* Heaven Shelley PTA - 11/12/2021 10:54 AM EDT Episode Visit [...] 43 Heaven Shelley PTA documented in this encounterGeorgetown Behavioral Hospital07-27-2022 Miscellaneous Notes* Telephone Encounter - Kendy Burns [...] ER. Patient states he isn't even in [place] at the present time. * Telephone Encounter [...] : 1955 Provider for this encounter: Ulises Ramos, Reason for the call/escalation: Pt is established with Dr. Ramos as his pcp. Pt states he is established at [place] with Dr. Roman and that Dr. Roman is his back up because Dr. Ramos is booked to [facility] out. Pt wants to see Dr. Roman for chronic diarrhea for 3 weeks. Was Patient Referred to [facility]/Seek Emergency Treatment (Y/N): NA Did Patient Agree (Y/N): NA Was An Attempt Made To Transfer The Patient To The Office (Y/N): NA Were You Able To Reach Someone At The Office (Y/N): NA If Yes - Patient Was Transferred To (Caregivers Name): NA If No - Which [employer] Leadership Instrumentation Engineering Technician Did You Speak With Regarding This Patient: NA Was an appointment scheduled (Y/N): [id number] denied due to symptoms Reason patient was requesting visit (RFV/signs and symptoms/diagnosis) : Chronic diarrhea Person calling if other than patient: patient Return call to if other than patient: patient Best contact number: [phone] Thank you, Sierra Concepcion November 07, 2021 12:32 PM documented in this encounterGeorgetown Behavioral Hospital07-15-2022 History of Present illness Narrative* Louie Silva RN - 2021 12:18 PM EDT PRIMARY CARE COORDINATION QUICK NOTE Provider Action/FYI Opened in error Patient identified by name and date . Wilton Palma RN 2021 12:18 PM documented in this encounterGeorgetown Behavioral Hospital07-15-2022 History of Present illness Narrative* Louie Silva RN - 2021 12:14 PM EDT INSIGHT CDM TELEPHONIC OUTREACH Provider Action/FYI: Call to Pt left a message to verify CKD or other symptoms or concerns. Contact made with patient: No - Left message Hello my name is Wilton Palma RN your Database Tester from the [facility] I am callingtoday for your bi-weekly check in. I am sorry I missed your call. I will reach out to you again tomorrow. (if the third call I will reach out to you again next week) Enter next patient outreach date for the following business day using the Track Pt Outreach. End outreach. Wilton Palma RN 2021 12:14 PM documented in this encounterGeorgetown [facility]07-15-2022 Miscellaneous Notes* Telephone Encounter - Alison Ibarra RN - 2021 8:27 AM EDT Pharmacy requesting the following refill Refill(s) Requested: Pending Prescriptions Disp Refills HYDROXYUREA 500 MG CAPSULE 180 capsule 0 Sig: TAKE 3 CAPSULES BY MOUTH ONCE DAILY JEOVANNY: Yes ALLERGIES Allergen Reactions Doxycycline Intolerance Rash, diarrhea Penicillin Hives (home) [phone] (cell) Last Office Visit Date: 09/19/2021 Last [facility] Visit: Visit date not found Future Appointment: 12/20/2021 The patients preferred pharmacy has been captured for this encounter? yes Request is for script(s) to be escript to pharmacy. Alison Ibarra RN documented in this encounterGeorgetown [facility] Hospital07-15-2022 Miscellaneous Notes* Telephone Encounter - Pratibha Barba [...] accordingly. Pratibha Barba LPN documented in this encounterGeorgetown Behavioral Hospital07-14-2022 Miscellaneous Notes* Telephone Encounter - Courtney Montana Pss - 10/25/2021 1:24 PM EDT Referral [facility]. Ref# [id number]. [facility] Specialty office will call the patient within [...] specialist. Please order and send to schedulers. KIMO also wanted to let you know he [...] the fenofibrate * Telephone Encounter - Guerline Mckeon Pss - 10/23/2021 8:30 AM EDT Per patient, he takes the 145 of the Fenofibrate. Patient states that his triglycerides are down to 20 or less. Patient is taking a RX called, Repatha. Patient states he has less cholesterol then [...] at his appointment yesterday. documented in this encounterGeorgetown [facility] Hospital07-14-2022 Miscellaneous Notes* Telephone Encounter - Bernarda Sarah RN - 10/25/2021 11:03 AM EDT Patient notified. * Telephone Encounter - Ary Araujo Ma - 10/25/2021 10:57 AM EDT ----- Message from Ulises Ramos DO sent at 10/24/2021 7:56 AM EDT ----- All labs are normal, notify patient documented in this encounterGeorgetown [facility]07-13-2022 Miscellaneous Notes* Telephone Encounter - Derek Horne [...] .) Derek Horne MA documented in this encounterGeorgetown Behavioral Hospital07-13-2022 History of Present illness Narrative* Heaven MAYITO Shelley - 10/24/2021 11:35 AM EDT Episode Visit [...] 38 Heaven Shelley PTA documented in this encounterGeorgetown [facility]al Hospital07-11-2022 History of Present illness Narrative* Ulises Ramos, DO - 10/22/2021 2:21 PM EDT Here [...] Social History 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 hydroxyurea (HYDREA) 500 mg capsule Take 3 capsules by mouth once daily. apixaban (ELIQUIS) 5 mg tab(s) Take 0.5 tablets by mouth twice daily. aspirin, enteric coated (ASPIRIN, ENTERIC COATED) 325 mg EC tablet Take 1 tablet by mouth twice daily for 21 days. Problem List: ACTIVE PROBLEM LIST Deng (Acute Kidney Injury) ([facility]) - 01/07/2019 (D priority) Vitamin D Deficiency - 07/17/2021 Obesity, Class I, Bmi 30-34.9 - 05/28/2021 Acute Blood Loss Anemia - 05/16/2021 Covid-19 Virus Infection - 05/16/2021 Severe Protein-Calorie Malnutrition ([facility]) - 05/09/2021 Severe Anemia - 05/02/2021 Cira (Obstructive Sleep Apnea) - 05/01/2021 Deep Vein Thrombosis (Dvt) of Femoral Vein of Left Lower Extremity ([facility]) - 03/14/2021 Leg Swelling - 03/14/2021 Leukocytosis - 03/31/2019 Essential Thrombocythemia ([facility]) - 03/31/2019 Ckd (Chronic Kidney Disease) Stage 3, Gfr 30-59 Ml/Min ([facility]) - 03/31/2019 Hypertriglyceridemia 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 S/P Drug Eluting Coronary Stent Placement - 11/25/2018 Stage 2 Chronic Kidney Disease - 11/10/2018 Nstemi (Non-St Elevated Myocardial Infarction) ([facility]) - 10/24/2018 Bph (Benign Prostatic Hyperplasia) - 10/05/2018 History of Right Nephrectomy - 10/05/2018 Nocturia - 03/19/2018 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 Cll (Chronic Lymphocytic Leukemia) ([facility]) - 06/13/2017 Iron Deficiency Anemia - 06/13/2017 Renal Cancer, Right ([facility]) - 04/29/2017 Essential Hypertension Multiple Lipomas Gerd [...] DO Ulises Perdomo DO documented in this encounterGeorgetown [facility]al Hospital07-11-2022 History of Present illness Narrative* Heaven Shelley [...] 38 Heaven Shelley PTA documented in this encounterGeorgetown Behavioral Hospital07-07-2022 Miscellaneous Notes* Telephone Encounter - Derek Horne MA - 10/18/2021 4:35 PM EDT Pt informed and understands, he sees his PCP next week, he also thanks you for getting him in quickfor the transfusion. Dreek Horne MA * Telephone Encounter - Halle [...] Horne MA - 10/18/2021 1:41 PM EDT [facility] pharmacy in [place] called they received the zolpidem 5mg prescription the pt states 5mg doesn't work and he needs 10mg do you want to send a new script for 10mg? Derek Horne MA documented in this encounterGeorgetown [facility]al Hospital07-07-2022 Miscellaneous Notes* Telephone Encounter - Lolis Lazaro [...] accordingly. Lolis Lazaro LPN documented in this encounterGeorgetown Behavioral Hospital07-07-2022 Miscellaneous Notes* Telephone Encounter - Halle Dale MD - 10/18/2021 8:59 AM EDT Orders are placed. documented in this encounterGeorgetown Behavioral Hospital07-06-2022 Miscellaneous Notes* Telephone Encounter - Annmarie Ronquillo PA-C - 10/17/2021 8:31 AM EDT Message sent to patient via [facility]: Dear Mr. David Minoodiogo, my name is Annmarie Ronquillo and I am covering for Ulises Ramos DO. I saw your message from yesterday. Yes your hemoglobin was only 7.2. It looks like you were able toarrange a transfusion through your police officer Dr. Dale? Please let me know if you need anything from family medicine. I hope you are feeling better soon. Regards, Annmarie Ronquillo PA-C * Telephone Encounter - Angy Avelar - 10/17/2021 8:14 AM EDT Regarding recent labs. Angy Avelar documented in this encounterGeorgetown Behavioral Hospital07-05-2022 History of Present illness Narrative* Halle Dale MD - 10/16/2021 10:14 PM EDT Derek, please schedule 1 unit pRBC transfusion. Orders are in. Thank you documented in this encounterGeorgetown Behavioral Hospital06-30-2022 Miscellaneous Notes* Telephone Encounter - Alison Ibarra RN - 10/11/2021 1:05 PM EDT Pharmacy requesting the following refill Refill(s) Requested: Pending Prescriptions Disp Refills ZOLPIDEM 5 MG TABLET 30 tablet 0 Sig: TAKE 1 TABLET BY MOUTH ONCE DAILY AT BEDTIME NEEDED FOR UP TO 30 DAYS WENDY Class: C-IV JEOVANNY: Yes ALLERGIES Allergen Reactions Doxycycline Intolerance Rash, diarrhea Penicillin Hives (home) [phone] (cell) Last Office Visit Date: 09/19/2021 Last [facility] Visit: Visit date not found Future Appointment: 12/20/2021 The patients preferred pharmacy has been captured for this encounter? yes Request is for script(s) to be escript to pharmacy. Alison Ibarra RN documented in this encounterGeorgetown [facility]al Hospital06-30-2022 Miscellaneous Notes* Telephone Encounter - Bernarda Sarah [...] thinners. He will be flying out to [place] on 10/25. Made an appointment for him with Dr. Ramos on 10/22. However, if possible he would still like to speak to a nurse or Dr. Ramos before the appointment. Please advise. Thank you! documented in this encounterGeorgetown Behavioral Hospital06-29-2022 Miscellaneous Notes* Telephone Encounter - Shahla Prakash [...] Comment: patient no longer on amlodipine. Shahla Prakash LPN documented in this encounterGeorgetown Behavioral Hospital06-29-2022 History of Present illness Narrative* Louie Silva RN - 10/10/2021 1:13 PM EDT [facility] TELEPHONIC OUTREACH Provider Action/FYI: Spk with Pt, [...] like to speak with a social work maintenance team leader to help give you support for any [...] you up for automated weekly questionnaires through [facility]. This is an easy way for us [...] 10, 2021 1:13 PM documented in this encounterGeorgetown Behavioral Hospital06-28-2022 Miscellaneous Notes* Telephone Encounter - Halle Dale [...] 10/25. Derek Horne MA documented in this encounterGeorgetown Behavioral Hospital06-28-2022 History of Present illness Narrative* Sia Ayesha, PT - 10/09/2021 11:49 AM EDT Episode [...] created on 07/06/21 through 09/03/21-extended through 12/08/21 [place] in home exercise program. ONGOING Patient will [...] Patient to be seen for Neuromuscular re-education (24931);Therapeutic exercise (71539);Manual therapy (19812);Therapeutic activities (19302);Gait Training (84684);Patient/Family/Caregiver Education;E-Stim Unattended (36978) PLAN FOR NEXT VISIT: strength and conditioning, balance SUBJECTIVE: Patient Reason for Visit: L LE and deconditioning. States that he is doing better, but is still unable to balance on the left lower extremity and notes decreased strength throughout the left lower extremity. He also states that he took himself off of his eliquis and has a planned flightin October to [place]. I discussed the importance of letting his [...] 43 Sia Hodge PT documented in this encounterGeorgetown [facility]al Hospital06-23-2022 Miscellaneous Notes* Telephone Encounter - Pratibha Barba LPN - 10/04/2021 8:50 AM EDT I called and spoke to and informed him of Melissa's response to lab results and recommendations. Patient voiced understanding. Pratibha Barba LPN * Telephone Encounter - Pratibha Barba LPN - 10/04/2021 8:46 AM EDT ----- Message from Melissa Raymond APRN.STERNMAN sent at 10/04/2021 8:40 AM EDT ----- Please call the patient, and let them know the results of the blood work is amazing with repatha injection No change in medical treatment at this time. Please keep all appointments as scheduled. documented in this encounterGeorgetown [facility]al Hospital06-22-2022 History of Present illness Narrative* Heaven Shelley [...] 43 Heaven Shelley PTA documented in this encounterGeorgetown Behavioral Hospital06-21-2022 History of Present illness Narrative* Melissa Raymond APRN.STERNMAN - 10/02/2021 1:30 PM EDT PRIMARY CARE PHYSICIAN: Ulises Ramos [address] [place] [address] Chief Complaint Patient presents with: CARD Follow [...] be anemic, was admitted to [facility] and underwent GI evaluation with endoscopic [...] ago, but is going to ask his Drawbench Operator to see if he should continue. apixaban [...] they can worsen apneic events. Melissa Raymond APRN.CNP Follow up planning: Return in [address] Mays Electronically signed by Melissa Raymond APRN.CNP The above note was partially created using a dictation recognition software. A reasonable attempt has been made to correct any errors. I spent >20 minutes in the visit, which included a review of the patients pertinent past medicalhistory, history of present health status, review of systems, assessment & planning, counseling, and further coordination of care. documented in this encounterGeorgetown Behavioral Hospital06-21-2022 Nurse Note* Pratibha Barba LPN - 10/02/2021 1:17 PM EDT Patient c/o SOB with activity and increased fatigue. documented in this encounterGeorgetown Behavioral Hospital06-17-2022 Miscellaneous Notes* Telephone Encounter - Delaney Turk [facility] - 09/28/2021 3:40 PM EDT Pharmacy-Reviewed Medication History Patient Name:Linda David : 1955 Patient Contact Attempt: First attempt Adherence Packing Program Accepted? No, patient does not wish to participate. Patient is not interested at the time wants to stay at [facility] and decrease his meds. Gave him our phone number to reach out in case he is ever interested, thank you! Delaney Turk, PharmD, [facility] [phone] documented in this encounterGeorgetown Behavioral Hospital06-15-2022 Miscellaneous Notes* Telephone Encounter - Halle Dale MD - 09/26/2021 2:54 PM EDT I'm not aware of such limit. Please let him know. Thanks for double checking. * Telephone Encounter - Elsie Gallo MA - 09/26/2021 11:55 AM EDT Patient wants to know if he has an altitude limit he has to stay under? He is traveling and will beflying over 8,000 feet. [phone]. Elsie Gallo MA documented in this encounterGeorgetown Behavioral Hospital06-15-2022 History of Present illness Narrative* Louie Silva RN - 09/26/2021 11:22 AM EDT [facility] TELEPHONIC OUTREACH Provider Action/FYI: Call to Pt left a message to verify CKD or other symptoms or needs. Encouraged adequate hydration with hot / humid weather. Contact made with patient: No - Left message Hello my name is Wilton Palma RN your Database Tester from the [facility] I am callingtoday for your bi-weekly check in. I am sorry I missed your call. I will reach out to you again tomorrow. (if the third call I will reach out to you again next week) Enter next patient outreach date for the following day using the Track Pt Outreach. End outreach. 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 BABY [...] Abs. Lymph 0.84 - 2.85 thou/cmm Abs. [place]otin 0.30 - 0.82 thou/cmm Abs. Eosin 0.04 [...] k/uL 5.93 (H) 17.61 (H) 8.02 (H) [place]% % 35.2 1.0 31.6 Abs Asotin <0.87 k/uL 4.76 (H) 0.25 4.88 (H) Eosin% % 0.3 0.0 0.1 Abs Eosin <0.46 k/uL 0.04 0.00 <0.03 Baso% % 0.3 0.0 0.1 Abs Baso <0.11 k/uL 0.04 0.00 <0.03 [place]% % Component Latest Ref Rng & Units [...] proportion; a sequence change of c. 1514G>A ([id number]) in exon 10 was detected at approximately [...] Level: 4 - Moderate documented in this encounterGeorgetown [facility]al Hospital06-02-2022 History of Present illness Narrative* Sierra Ortiz PT - 09/13/2021 10:46 AM EDT Episode [...] 40 Sierra Ortiz PT documented in this encounterGeorgetown Behavioral Hospital06-02-2022 Miscellaneous Notes* Telephone Encounter - Love Meg KIRKLAND - 09/13/2021 10:11 AM EDT Spoke with patient and he understood the psa in October and possible mri He said that his urinary symptoms have subsided about 50% and I informed him that if they didn't get better to call us and we can have him come in for a urine check * Telephone Encounter - Love KIRKLAND - 09/13/2021 10:11 AM EDT ----- Message [...] get his urine checked. 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 ([facility]) - 03/14/2021 Leg Swelling - 03/14/2021 Leukocytosis - 03/31/2019 Essential Thrombocythemia ([facility]) - 03/31/2019 Ckd (Chronic Kidney Disease) Stage 3, Gfr 30-59 Ml/Min ([facility]) - 03/31/2019 Hypertriglyceridemia Rhodes Esophagus S/P Ptca (Percutaneous Transluminal Coronary Angioplasty) - 11/25/2018 S/P Drug Eluting Coronary Stent Placement - 11/25/2018 Stage 2 Chronic Kidney Disease - 11/10/2018 Nstemi (Non-St Elevated Myocardial Infarction) ([facility]) - 10/24/2018 Bph (Benign Prostatic Hyperplasia) - 10/05/2018 History of Right Nephrectomy - 10/05/2018 Nocturia - 03/19/2018 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 - Registration link sent to: [email or web address] Patient identified by name and date of . Patient Attributed To: QAE Payer: ACO ([facility]) Reason for review or outreach: Contract Priority Patient qualifies for ACO Ecosystem outreach Contact made with Patient: Yes Spoke to patient. Patient identified by name and . Hi my name is Kristal De Leon RN and I am calling from the [facility]. Because you receive care from Ulises Ramos [...] connect you to a provider if appropriate. PCPoffice number provided to the patient- [phone]. For non-urgent requests, you or a family member can also message your PCP on [facility]. Do you have access to your [facility] account? Y For life-threatening emergencies, go to the [facility] emergency department or call 911. PCP/Specialist [...] reaching out to you by phone or [facility] message to set up a time to review your medications. If you already see someone from our pharmacy team, that person will reach out to you. They will also request that you have your prescriptions filled by a [facility]. The reason for this is to allow us to more fully help you manage your medications and your disease conditions in the most comprehensive way. It also allows Ulises Ramos DO to have the most up to date access to your medication information. To learn more about [facility] locations and services, visit our website at [email or web address] or call [phone] ([phone]). RX Consult to outpatient pharmacy placed- Reason [...] routines. Can we connect you with a [facility] Speech Communication Professor to find a program that could help you meet your goals? No Clarity- Managing your health can be stressful, and to support you in your wellness journey the [facility] offers an emotional health and well-being program [...] in this program? Patient agreeable to Sheridan Jiang E-mail confirmed: [email or web address] Registration link sent to Patient: [email or web address] Route encounter to : P Wellness ECoaching- Indicate ACO Patient & which program they are interested in (Clarity) Add comment to Action/FYI PCSW- We would like to make sure you have what you need so that your basics needs are met - including your personal safety, food, housing and medications. Would you like to speak with a social work maintenance team leader to help give you support for any of these needs? No BHSW- It can be normal to feel anxious or down during a time like this. Would you like to talk to amental health professional about how you have been feeling? No Action Taken: No action taken Kristal De Leon RN September 11, 2021 10:41 AM documented in this encounterGeorgetown Behavioral Hospital05-31-2022 Evaluation note* Diagnosis Stage 3 chronic kidney disease, unspecified whether stage 3a or 3b CKD (HCC)- Primary documented in this encounter [facility] Miscellaneous Notes* Telephone Encounter - Loraine Ibarra [...] regards to urine frequency. documented in this encounterGeorgetown Behavioral Hospital05-25-2022 History of Present illness Narrative* Heaven Shelley [...] 40 Heaven Shelley PTA documented in this encounterGeorgetown Behavioral Hospital05-19-2022 History of Present illness Narrative* Loy Mcallister [...] like to speak with a social work maintenance team leader to help give you support for any [...] you up for automated weekly questionnaires through [facility]. This is an easy way for us [...] my name is Wilton Palma RN your Database Tester from the [facility] I am calling today for your bi-weekly check in. I am sorry I missed your call. I will reach out to you again tomorrow. (if the third call I will reach out to you again next week) Enter next patient outreach date forthe using the Track Pt Outreach. End outreach. Wilton Palma RN August 29, 2021 10:37 AM documented in this encounterGeorgetown Behavioral Hospital05-18-2022 History of Present illness Narrative* Heaven Shelley PTA - 08/29/2021 10:04 AM EDT Episode Visit [...] 45 Heaven Shelley PTA documented in this encounterGeorgetown Behavioral Hospital05-16-2022 History of Present illness Narrative* Sierra Ortiz, [...] of Care: created on 07/06/21 through 09/03/21 [place] in home exercise program. ONGOING Patient will [...] Patient to be seen for Neuromuscular re-education (85604);Therapeutic exercise (33668);Manual therapy (75806);Therapeutic activities (13481);Gait Training (05198);Patient/Family/Caregiver Education;E-Stim Unattended (15930) PLAN FOR NEXT VISIT: strength and conditioning, [...] 40 Sierra Ortiz PT documented in this encounterGeorgetown Behavioral Hospital05-10-2022 Miscellaneous Notes* Telephone Encounter - Rosalinda Melchor LPN - 08/21/2021 8:44 AM EDT Pharmacy faxed requesting the following refill Refill(s) Requested: Pending Prescriptions Disp Refills DOXYCYCLINE HYCLATE 100 MG CAPSULE 60 capsule 0 Sig: Take 1 capsule by mouth twice daily for 7 days JEOVANNY: Yes ALLERGIES Allergen Reactions Doxycycline Intolerance Rash, diarrhea Penicillin Hives (home) [phone] (cell) Last Office Visit Date: 07/17/2021 Last [facility] Visit: Visit date not found Future Appointment: Visit date not found The patients preferred pharmacy has been captured for this encounter? yes Request is for script(s) to be escript to pharmacy. Rosalinda Melchor LPN documented in this encounterGeorgetown Behavioral Hospital05-04-2022 Miscellaneous Notes* Telephone Encounter - Lani Ochoa [...] MRI of his prostate. documented in this encounterGeorgetown Behavioral Hospital05-03-2022 Miscellaneous Notes* Telephone Encounter - Alison Ibarra [...] it. Derek Horne MA documented in this encounterGeorgetown Behavioral Hospital05-03-2022 History of Present illness Narrative* Heaven Shelley [...] 45 Heaven Shelley PTA documented in this encounterGeorgetown Behavioral Hospital05-02-2022 History of Present illness Narrative* Louie Silva [...] like to speak with a social work maintenance team leader to help give you support for any [...] you up for automated weekly questionnaires through [facility]. This is an easy way for us [...] 13, 2021 12:48 PM documented in this encounterGeorgetown Behavioral Hospital04-28-2022 Miscellaneous Notes* Telephone Encounter - Ary Araujo Ma - 08/09/2021 2:47 PM EDT Medical supplies and equipment form placed on [facility]'s desk. documented in this encounterGeorgetown Behavioral [facility] History of Present illness Narrative* Sierra Ortiz, PT - 08/09/2021 1:10 PM EDT Episode [...] of Care: created on 07/06/21 through 09/03/21 [place] in home exercise program. ONGOING Patient will [...] Patient to be seen for Neuromuscular re-education (18154);Therapeutic exercise (97786);Manual therapy (12540);Therapeutic activities (04105);Gait Training (00438);Patient/Family/Caregiver Education;E-Stim Unattended (56445) PLAN FOR NEXT VISIT: strength and conditioning, [...] 38 Sierra Ortiz PT [facility] History of Present illness Narrative* Louie Silva RN - 08/06/2021 12:50 PM EDT INS[facility] CD[facility] TELEPHONIC OUTREACH Provider Action/FYI: Call to Pt left a message to verify CKD or other symptom concerns. Contact made with patient: No - Left message Anderson my name is Wilton Palma RN your Database Tester [facility] the [facility] I am calling today for your bi-weekly check in. I am sorry I missed your call. I will reach out to you again tomorrow. (if the third call I will reach out to you again next week) Enter next patient outreach date forthe using the Track Pt Outreach. End outreach. Wilton Palma RN August 06, 2021 12:50 PM [facility]04[facility]20[facility]22 Miscellaneous Notes* Telephone Encounter - Ulises Ramos DO - 08/01/2021 4:08 PM EDT Will do * Telephone Encounter - Bernarda Sarah RN - 08/01/2021 3:24 PM EDT Insurance will not pay for omeprazole 20 mg BID. They prefer to pay for once daily dosing. Would 40mg once daily be appropriate? If so, please send in a new rx. [facility] History of Present illness Narrative* Heaven Shelley [...] 38 Heaven Shelley PTA [facility]04[facility] History of Present illness Narrative* Heaven Shelley [...] 45 Heaven Shelley PTA [facility]22 Miscellaneous Notes* Telephone Encounter - Symone Paiz - 07/27/2021 5:41 PM EDT Referral submitted to [facility] Contact Center ([phone]). They will contact the patient to schedule.Confirmation number: [id number] Initial consult ENT H92.01 Right ear pain J34.89 Nasal sore Medicare Sandra documented [facility]Ge[facility]04[facility] History of Present illness Narrative* Sierra Ortiz, [...] and gait training SUBJECTIVE: Feels good today. [place] pretty worn out after last PT session [...] 38 Sierra Ortiz PT [facility]04[facility] History of Present illness Narrative* Louie Silva RN - 07/26/2021 10:10 AM EDT INSIGHT CDM TELEPHONIC OUTREACH Provider Action/FYI: Call to Pt left a message to verify CKD or other symptom status or needs. Contact made with patient: No - Left message [place] my name is Wilton Palma RN your Database Tester [facility] I am calling today for your bi-weekly check in. I am sorry I missed your call. I will reach out to you again tomorrow. (if the third call I will reach out to you again next week) Enter next patient outreach date forthe following using the Track Pt Outreach. End outreach. Wilton Palma RN July 26, 2021 10:10 AM documented [facility]Ge[facility]04-13-2022 Miscellaneous Notes* Telephone Encounter - Odilon Puentes - 07/25/2021 1:40 PM EDT Mon form on pcp desks for review and sign documented [facility]Ge[facility]04[facility]22 History of Present illness Narrative* Heaven Shelley [...] 40 Heaven Shelley PTA documented [facility]04-08-2022 Miscellaneous Notes* Telephone Encounter - Halle Dale MD - 07/20/2021 2:59 PM EDT I called Mr. David. No need for iron infusion. Continue oral iron and hydrea as prescribed. * Telephone Encounter - Derek Horne MA - 07/20/2021 10:58 AM EDT Pt stopped by his asic verification engineer thinks he needs an iron transfusion but wanted to see what Dr Dale thought. Derek Horne MA documented in this [facility]Ge[facility]04-08-2022 History of Present illness Narrative* Eileen Medrano [...] 43 Eileen Medrano PTA documented in this [facility]Ge[facility]04-06-2022 Instructions* Patient Instructions* Loy Mcallister MD - 07/18/2021 2:20 PM EDT It was great to see you today! Please get a PSA prior to seeing me in 6 months. Lets try some oxybutynin at night. documented in this [facility]Ge[facility]04-[facility]-2022 History of Present illness Narrative* Loy Mcallister MD - 07/18/2021 2:05 PM EDT Images from the original note were not included. Formerly [facility], [facility] ESTABLISHED PATIENT OFFICE VISIT HISTORY OF PRESENT [...] extrapolated by contextual derivation. documented in this encounterGe[facility]04-04-2022 Miscellaneous Notes* Telephone Encounter - Love Nielsen - 07/16/2021 7:31 AM EDT Spoke w/pt to reschedule today's appt. Pt wanted me to schedule him w/dr. West at . I advised pt I was unable to. Pt hung up, I called back and lvm to call w/any quest and reschedule appt at our office. Love Nielsen MA documented in this [facility]Ge[facility]03-30-2022 History of Present illness Narrative* Louie Silva [...] Receiving PT 2x week Patient referred by: [facility] Ritu Contact made with patient: Yes - Patient identified by name and . Discussed care with patient Anderson this is Wilton Palma RN and I am calling from Ulises Ramos DO office at the [facility]. I am a RN Database Tester with our [facility] program. [...] few questions once a week through your [facility] account. It will automatically show up for you to complete. There are simple questions that will help us identify if you have any concerns or symptoms and I will call you to help get what you need. We will be able to connect you, review your symptoms, do an on demand visit, or communicate with Ulises Ramos DO if needed. I am going [...] 11, 2021 1:31 PM documented in this encounterGe[facility]03-30-2022 Evaluation note* Diagnosis Stage 3 chronic kidney disease, unspecified whether stage 3a or 3b CKD (HCC)- Primary [facility] encounter [facility] History of Present illness Narrative* Sia Hodge, PT - 07/09/2021 10:54 AM EDT Episode [...] of Care: created on 07/06/21 through 09/03/21 [place] in home exercise program. Patient will decrease [...] Planned: 16 Planned Treatment Interventions: Neuromuscular re-education (08262);Therapeutic exercise (63725);Manual therapy (32692);Therapeutic activities (50299);Gait Training (63677);Patient/Family/Caregiver Education;E-Stim Unattended (42270) PLAN FOR NEXT VISIT: proximal hip strengthening/LE flexibility/balance and gait training Patient demonstrates good understanding of plan of care and treatment. The above goals and plan of care were discussed and agreed upon by patient/family. SUBJECTIVE: Adina David is a 65 year old male seen today for Deconditioning and left LE Pain. [facility] We had to stop PT in Apr/May due to significant drop in hemoglobin and then he was admitted to [facility] for COVID and a GI bleed. [...] 43 Sia Hodge PT documented in [facility]Ge[facility]04-10-[facility]21 History of Past illness Narrative* Problem Noted Date Resolved Date Closed left subtrochanteric femur fracture 07/2207/27/2020 Facial numbness 03/31/2019 04/03/2019 GI bleed 12/31/2018 01/11/2019 Frequency of urination 03/19/2018 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 documented as of this encounter (statuses as of 07/09/2021) [address]10-2021 History of Past illness Narrative* Problem Noted Date Resolved Date Closed left subtrochanteric femur fracture 07/2207/27/2020 Facial numbness 03/31/2019 04/03/2019 GI bleed 12/31/2018 01/11/2019 Frequency of urination 03/19/2018 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 documented as of this encounter (statuses as of 07/11/2021) [address]10-2021 History of Past illness Narrative* Problem Noted Date Resolved Date Closed left subtrochanteric femur fracture 07/2207/27/2020 Facial numbness 03/31/2019 04/03/2019 GI bleed 12/31/2018 01/11/2019 Frequency of urination 03/19/2018 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 documented as of this encounter (statuses as of 07/16/2021) [address]10-2021 History of Past illness Narrative* Problem Noted Date Resolved Date Closed left subtrochanteric femur fracture 07/2207/27/2020 Facial numbness 03/31/2019 04/03/2019 GI bleed 12/31/2018 01/11/2019 Frequency of urination 03/19/2018 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 documented as of this encounter (statuses as of 07/18/2021) [address]10-2021 History of Past illness Narrative* Problem Noted Date Resolved Date Closed left subtrochanteric femur fracture 07/2207/27/2020 Facial numbness 03/31/2019 04/03/2019 GI bleed 12/31/2018 01/11/2019 Frequency of urination 03/19/2018 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 documented as of this encounter (statuses as of 07/20/2021) [address]10-2021 History of Past illness Narrative* Problem Noted Date Resolved Date Closed left subtrochanteric femur fracture 07/2207/27/2020 Facial numbness 03/31/2019 04/03/2019 GI bleed 12/31/2018 01/11/2019 Frequency of urination 03/19/2018 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 documented as of this encounter (statuses as of 07/20/2021) [address]10-2021 History of Past illness Narrative* Problem Noted Date Resolved Date Closed left subtrochanteric femur fracture 07/2207/27/2020 Facial numbness 03/31/2019 04/03/2019 GI bleed 12/31/2018 01/11/2019 Frequency of urination 03/19/2018 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 documented as of this encounter (statuses as of 07/25/2021) [address]10-2021 History of Past illness Narrative* Problem Noted Date Resolved Date Closed left subtrochanteric femur fracture 07/2207/27/2020 Facial numbness 03/31/2019 04/03/2019 GI bleed 12/31/2018 01/11/2019 Frequency of urination 03/19/2018 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 documented as of this encounter (statuses as of 07/25/2021) [address]10-2021 History of Past illness Narrative* Problem Noted Date Resolved Date Closed left subtrochanteric femur fracture 07/2207/27/2020 Facial numbness 03/31/2019 04/03/2019 GI bleed 12/31/2018 01/11/2019 Frequency of urination 03/19/2018 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 documented as of this encounter (statuses as of 07/26/2021) [address]10-2021 History of Past illness Narrative* Problem Noted Date Resolved Date Closed left subtrochanteric femur fracture 07/2207/27/2020 Facial numbness 03/31/2019 04/03/2019 GI bleed 12/31/2018 01/11/2019 Frequency of urination 03/19/2018 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 documented as of this encounter (statuses as of 07/26/2021) [address]10-2021 History of Past illness Narrative* Problem Noted Date Resolved Date Closed left subtrochanteric femur fracture 07/2207/27/2020 Facial numbness 03/31/2019 04/03/2019 GI bleed 12/31/2018 01/11/2019 Frequency of urination 03/19/2018 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 documented as of this encounter (statuses as of 07/27/2021) [address]10-2021 History of Past illness Narrative* Problem Noted Date Resolved Date Closed left subtrochanteric femur fracture 07/2207/27/2020 Facial numbness 03/31/2019 04/03/2019 GI bleed 12/31/2018 01/11/2019 Frequency of urination 03/19/2018 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 documented as of this encounter (statuses as of 07/27/2021) [address]10-2021 History of Past illness Narrative* Problem Noted Date Resolved Date Closed left subtrochanteric femur fracture 07/2207/27/2020 Facial numbness 03/31/2019 04/03/2019 GI bleed 12/31/2018 01/11/2019 Frequency of urination 03/19/2018 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 documented as of this encounter (statuses as of 07/30/2021) [address]10-2021 History of Past illness Narrative* Problem Noted Date Resolved Date Closed left subtrochanteric femur fracture 07/2207/27/2020 Facial numbness 03/31/2019 04/03/2019 GI bleed 12/31/2018 01/11/2019 Frequency of urination 03/19/2018 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 documented as of this encounter (statuses as of 08/01/2021) [address]10-2021 History of Past illness Narrative* Problem Noted Date Resolved Date Closed left subtrochanteric femur fracture 07/2207/27/2020 Facial numbness 03/31/2019 04/03/2019 GI bleed 12/31/2018 01/11/2019 Frequency of urination 03/19/2018 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 documented as of this encounter (statuses as of 08/02/2021) [address]10-2021 History of Past illness Narrative* Problem Noted Date Resolved Date Closed left subtrochanteric femur fracture 07/2207/27/2020 Facial numbness 03/31/2019 04/03/2019 GI bleed 12/31/2018 01/11/2019 Frequency of urination 03/19/2018 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 documented as of this encounter (statuses as of 08/07/2021) [address]10-2021 History of Past illness Narrative* Problem Noted Date Resolved Date Closed left subtrochanteric femur fracture 07/2207/27/2020 Facial numbness 03/31/2019 04/03/2019 GI bleed 12/31/2018 01/11/2019 Frequency of urination 03/19/2018 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 documented as of this encounter (statuses as of 08/09/2021) [address]10-2021 History of Past illness Narrative* Problem Noted Date Resolved Date Closed left subtrochanteric femur fracture 07/2207/27/2020 Facial numbness 03/31/2019 04/03/2019 GI bleed 12/31/2018 01/11/2019 Frequency of urination 03/19/2018 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 documented as of this encounter (statuses as of 08/09/2021) [address]10-2021 History of Past illness Narrative* Problem Noted Date Resolved Date Closed left subtrochanteric femur fracture 07/2207/27/2020 Facial numbness 03/31/2019 04/03/2019 GI bleed 12/31/2018 01/11/2019 Frequency of urination 03/19/2018 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 documented as of this encounter (statuses as of 08/13/2021) [address]10-2021 History of Past illness Narrative* Problem Noted Date Resolved Date Closed left subtrochanteric femur fracture 07/2207/27/2020 Facial numbness 03/31/2019 04/03/2019 GI bleed 12/31/2018 01/11/2019 Frequency of urination 03/19/2018 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 documented as of this encounter (statuses as of 08/14/2021) [address]10-2021 History of Past illness Narrative* Problem Noted Date Resolved Date Closed left subtrochanteric femur fracture 07/2207/27/2020 Facial numbness 03/31/2019 04/03/2019 GI bleed 12/31/2018 01/11/2019 Frequency of urination 03/19/2018 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 documented as of this encounter (statuses as of 08/14/2021) [address]10-2021 History of Past illness Narrative* Problem Noted Date Resolved Date Closed left subtrochanteric femur fracture 07/2207/27/2020 Facial numbness 03/31/2019 04/03/2019 GI bleed 12/31/2018 01/11/2019 Frequency of urination 03/19/2018 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 documented as of this encounter (statuses as of 08/14/2021) [address]10-2021 History of Past illness Narrative* Problem Noted Date Resolved Date Closed left subtrochanteric femur fracture 07/2207/27/2020 Facial numbness 03/31/2019 04/03/2019 GI bleed 12/31/2018 01/11/2019 Frequency of urination 03/19/2018 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 documented as of this encounter (statuses as of 08/15/2021) [address]10-2021 History of Past illness Narrative* Problem Noted Date Resolved Date Closed left subtrochanteric femur fracture 07/2207/27/2020 Facial numbness 03/31/2019 04/03/2019 GI bleed 12/31/2018 01/11/2019 Frequency of urination 03/19/2018 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 documented as of this encounter (statuses as of 08/15/2021) [address]10-2021 History of Past illness Narrative* Problem Noted Date Resolved Date Closed left subtrochanteric femur fracture 07/2207/27/2020 Facial numbness 03/31/2019 04/03/2019 GI bleed 12/31/2018 01/11/2019 Frequency of urination 03/19/2018 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 documented as of this encounter (statuses as of 08/21/2021) [address]10-2021 History of Past illness Narrative* Problem Noted Date Resolved Date Closed left subtrochanteric femur fracture 07/2207/27/2020 Facial numbness 03/31/2019 04/03/2019 GI bleed 12/31/2018 01/11/2019 Frequency of urination 03/19/2018 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 documented as of this encounter (statuses as of 08/27/2021) [address]10-2021 History of Past illness Narrative* Problem Noted Date Resolved Date Closed left subtrochanteric femur fracture 07/2207/27/2020 Facial numbness 03/31/2019 04/03/2019 GI bleed 12/31/2018 01/11/2019 Frequency of urination 03/19/2018 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 documented as of this encounter (statuses as of 08/29/2021) [address]10-2021 History of Past illness Narrative* Problem Noted Date Resolved Date Closed left subtrochanteric femur fracture 07/2207/27/2020 Facial numbness 03/31/2019 04/03/2019 GI bleed 12/31/2018 01/11/2019 Frequency of urination 03/19/2018 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 documented as of this encounter (statuses as of 08/30/2021) [address]10-2021 History of Past illness Narrative* Problem Noted Date Resolved Date Closed left subtrochanteric femur fracture 07/2207/27/2020 Facial numbness 03/31/2019 04/03/2019 GI bleed 12/31/2018 01/11/2019 Frequency of urination 03/19/2018 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 documented as of this encounter (statuses as of 09/05/2021) [address]10-2021 History of Past illness Narrative* Problem Noted Date Resolved Date Closed left subtrochanteric femur fracture 07/2207/27/2020 Facial numbness 03/31/2019 04/03/2019 GI bleed 12/31/2018 01/11/2019 Frequency of urination 03/19/2018 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 documented as of this encounter (statuses as of 09/05/2021) [address]10-2021 History of Past illness Narrative* Problem Noted Date Resolved Date Closed left subtrochanteric femur fracture 07/2207/27/2020 Facial numbness 03/31/2019 04/03/2019 GI bleed 12/31/2018 01/11/2019 Frequency of urination 03/19/2018 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 documented as of this encounter (statuses as of 09/11/2021) [address]10-2021 History of Past illness Narrative* Problem Noted Date Resolved Date Closed left subtrochanteric femur fracture 07/2207/27/2020 Facial numbness 03/31/2019 04/03/2019 GI bleed 12/31/2018 01/11/2019 Frequency of urination 03/19/2018 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 documented as of this encounter (statuses as of 09/12/2021) [address]10-2021 History of Past illness Narrative* Problem Noted Date Resolved Date Closed left subtrochanteric femur fracture 07/2207/27/2020 Facial numbness 03/31/2019 04/03/2019 GI bleed 12/31/2018 01/11/2019 Frequency of urination 03/19/2018 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 documented as of this encounter (statuses as of 09/13/2021) [address]10-2021 History of Past illness Narrative* Problem Noted Date Resolved Date Closed left subtrochanteric femur fracture 07/2207/27/2020 Facial numbness 03/31/2019 04/03/2019 GI bleed 12/31/2018 01/11/2019 Frequency of urination 03/19/2018 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 documented as of this encounter (statuses as of 09/13/2021) [address]10-2021 History of Past illness Narrative* Problem Noted Date Resolved Date Closed left subtrochanteric femur fracture 07/2207/27/2020 Facial numbness 03/31/2019 04/03/2019 GI bleed 12/31/2018 01/11/2019 Frequency of urination 03/19/2018 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 documented as of this encounter (statuses as of 09/19/2021) [address]10-2021 History of Past illness Narrative* Problem Noted Date Resolved Date Closed left subtrochanteric femur fracture 07/2207/27/2020 Facial numbness 03/31/2019 04/03/2019 GI bleed 12/31/2018 01/11/2019 Frequency of urination 03/19/2018 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 documented as of this encounter (statuses as of 09/24/2021) [address]10-2021 History of Past illness Narrative* Problem Noted Date Resolved Date Closed left subtrochanteric femur fracture 07/2207/27/2020 Facial numbness 03/31/2019 04/03/2019 GI bleed 12/31/2018 01/11/2019 Frequency of urination 03/19/2018 9 AVM (arteriovenous malformation) of colon 01/11/2019 documented as of this encounter (statuses as of 09/26/2021) [address]10-2021 History of Past illness Narrative* Problem Noted Date Resolved Date Closed left subtrochanteric femur fracture 07/2207/27/2020 Facial numbness 03/31/2019 04/03/2019 GI bleed 12/31/2018 01/11/2019 Frequency of urination 03/19/2018 9 AVM (arteriovenous malformation) of colon 01/11/2019 documented as of this encounter (statuses as of 09/26/2021) [address]10-2021 History of Past illness Narrative* Problem Noted Date Resolved Date Closed left subtrochanteric femur fracture 07/2207/27/2020 Facial numbness 03/31/2019 04/03/2019 GI bleed 12/31/2018 01/11/2019 Frequency of urination 03/19/2018 9 AVM (arteriovenous malformation) of colon 01/11/2019 documented as of this encounter (statuses as of 09/28/2021) [address]10-2021 History of Past illness Narrative* Problem Noted Date Resolved Date Closed left subtrochanteric femur fracture 07/2207/27/2020 Facial numbness 03/31/2019 04/03/2019 GI bleed 12/31/2018 01/11/2019 Frequency of urination 03/19/2018 9 AVM (arteriovenous malformation) of colon 01/11/2019 documented as of this encounter (statuses as of 09/28/2021) [address]10-2021 History of Past illness Narrative* Problem Noted Date Resolved Date Closed left subtrochanteric femur fracture 07/2207/27/2020 Facial numbness 03/31/2019 04/03/2019 GI bleed 12/31/2018 01/11/2019 Frequency of urination 03/19/2018 9 AVM (arteriovenous malformation) of colon 01/11/2019 documented as of this encounter (statuses as of 10/02/2021) [address]10-2021 History of Past illness Narrative* Problem Noted Date Resolved Date Closed left subtrochanteric femur fracture 07/2207/27/2020 Facial numbness 03/31/2019 04/03/2019 GI bleed 12/31/2018 01/11/2019 Frequency of urination 03/19/2018 9 AVM (arteriovenous malformation) of colon 01/11/2019 documented as of this encounter (statuses as of 10/03/2021) [address]10-2021 History of Past illness Narrative* Problem Noted Date Resolved Date Closed left subtrochanteric femur fracture 07/2207/27/2020 Facial numbness 03/31/2019 04/03/2019 GI bleed 12/31/2018 01/11/2019 Frequency of urination 03/19/2018 9 AVM (arteriovenous malformation) of colon 01/11/2019 documented as of this encounter (statuses as of 10/04/2021) [address]10-2021 History of Past illness Narrative* Problem Noted Date Resolved Date Closed left subtrochanteric femur fracture 07/2207/27/2020 Facial numbness 03/31/2019 04/03/2019 GI bleed 12/31/2018 01/11/2019 Frequency of urination 03/19/2018 9 AVM (arteriovenous malformation) of colon 01/11/2019 documented as of this encounter (statuses as of 10/09/2021) [address]-2021 History of Past illness Narrative* Problem Noted Date Resolved Date Closed left subtrochanteric femur fracture 07/2207/27/2020 Facial numbness 03/31/2019 04/03/2019 GI bleed 12/31/2018 01/11/2019 Frequency of urination 03/19/2018 9 AVM (arteriovenous malformation) of colon 01/11/2019 documented as of this encounter (statuses as of 10/10/2021) [address]10-2021 History of Past illness Narrative* Problem Noted Date Resolved Date Closed left subtrochanteric femur fracture 07/2207/27/2020 Facial numbness 03/31/2019 04/03/2019 GI bleed 12/31/2018 01/11/2019 Frequency of urination 03/19/2018 9 AVM (arteriovenous malformation) of colon 01/11/2019 documented as of this encounter (statuses as of 10/11/2021) [address]10-2021 History of Past illness Narrative* Problem Noted Date Resolved Date Closed left subtrochanteric femur fracture 07/2207/27/2020 Facial numbness 03/31/2019 04/03/2019 GI bleed 12/31/2018 01/11/2019 Frequency of urination 03/19/2018 9 AVM (arteriovenous malformation) of colon 01/11/2019 documented as of this encounter (statuses as of 10/17/2021) [address]10-2021 History of Past illness Narrative* Problem Noted Date Resolved Date Closed left subtrochanteric femur fracture 07/2207/27/2020 Facial numbness 03/31/2019 04/03/2019 GI bleed 12/31/2018 01/11/2019 Frequency of urination 03/19/2018 9 AVM (arteriovenous malformation) of colon 01/11/2019 documented as of this encounter (statuses as of 10/17/2021) [address]10-2021 History of Past illness Narrative* Problem Noted Date Resolved Date Closed left subtrochanteric femur fracture 07/2207/27/2020 Facial numbness 03/31/2019 04/03/2019 GI bleed 12/31/2018 01/11/2019 Frequency of urination 03/19/2018 9 AVM (arteriovenous malformation) of colon 01/11/2019 documented as of this encounter (statuses as of 10/18/2021) [address]10-2021 History of Past illness Narrative* Problem Noted Date Resolved Date Closed left subtrochanteric femur fracture 07/2207/27/2020 Facial numbness 03/31/2019 04/03/2019 GI bleed 12/31/2018 01/11/2019 Frequency of urination 03/19/2018 9 AVM (arteriovenous malformation) of colon 01/11/2019 documented as of this encounter (statuses as of 10/18/2021) [address]10-2021 History of Past illness Narrative* Problem Noted Date Resolved Date Closed left subtrochanteric femur fracture 07/2207/27/2020 Facial numbness 03/31/2019 04/03/2019 GI bleed 12/31/2018 01/11/2019 Frequency of urination 03/19/2018 9 AVM (arteriovenous malformation) of colon 01/11/2019 documented as of this encounter (statuses as of 10/22/2021) [address]10-2021 History of Past illness Narrative* Problem Noted Date Resolved Date Closed left subtrochanteric femur fracture 07/2207/27/2020 Facial numbness 03/31/2019 04/03/2019 GI bleed 12/31/2018 01/11/2019 Frequency of urination 03/19/2018 9 AVM (arteriovenous malformation) of colon 01/11/2019 documented as of this encounter (statuses as of 10/22/2021) [address]10-2021 History of Past illness Narrative* Problem Noted Date Resolved Date Closed left subtrochanteric femur fracture 07/2207/27/2020 Facial numbness 03/31/2019 04/03/2019 GI bleed 12/31/2018 01/11/2019 Frequency of urination 03/19/2018 9 AVM (arteriovenous malformation) of colon 01/11/2019 documented as of this encounter (statuses as of 10/22/2021) [address]10-2021 History of Past illness Narrative* Problem Noted Date Resolved Date Closed left subtrochanteric femur fracture 07/2207/27/2020 Facial numbness 03/31/2019 04/03/2019 GI bleed 12/31/2018 01/11/2019 Frequency of urination 03/19/2018 9 AVM (arteriovenous malformation) of colon 01/11/2019 documented as of this encounter (statuses as of 10/24/2021) [address]10-2021 History of Past illness Narrative* Problem Noted Date Resolved Date Closed left subtrochanteric femur fracture 07/2207/27/2020 Facial numbness 03/31/2019 04/03/2019 GI bleed 12/31/2018 01/11/2019 Frequency of urination 03/19/2018 9 AVM (arteriovenous malformation) of colon 01/11/2019 documented as of this encounter (statuses as of 10/24/2021) [address]10-2021 History of Past illness Narrative* Problem Noted Date Resolved Date Closed left subtrochanteric femur fracture 07/2207/27/2020 Facial numbness 03/31/2019 04/03/2019 GI bleed 12/31/2018 01/11/2019 Frequency of urination 03/19/2018 9 AVM (arteriovenous malformation) of colon 01/11/2019 documented as of this encounter (statuses as of 10/25/2021) [address]10-2021 History of Past illness Narrative* Problem Noted Date Resolved Date Closed left subtrochanteric femur fracture 07/2207/27/2020 Facial numbness 03/31/2019 04/03/2019 GI bleed 12/31/2018 01/11/2019 Frequency of urination 03/19/2018 9 AVM (arteriovenous malformation) of colon 01/11/2019 documented as of this encounter (statuses as of 10/25/2021) [address]10-2021 History of Past illness Narrative* Problem Noted Date Resolved Date Closed left subtrochanteric femur fracture 07/2207/27/2020 Facial numbness 03/31/2019 04/03/2019 GI bleed 12/31/2018 01/11/2019 Frequency of urination 03/19/2018 9 AVM (arteriovenous malformation) of colon 01/11/2019 documented as of this encounter (statuses as of 2021) [address]10-2021 History of Past illness Narrative* Problem Noted Date Resolved Date Closed left subtrochanteric femur fracture 07/2207/27/2020 Facial numbness 03/31/2019 04/03/2019 GI bleed 12/31/2018 01/11/2019 Frequency of urination 03/19/2018 9 AVM (arteriovenous malformation) of colon 01/11/2019 documented as of this encounter (statuses as of 2021) [address]10-2021 History of Past illness Narrative* Problem Noted Date Resolved Date Closed left subtrochanteric femur fracture 07/2207/27/2020 Facial numbness 03/31/2019 04/03/2019 GI bleed 12/31/2018 01/11/2019 Frequency of urination 03/19/2018 9 AVM (arteriovenous malformation) of colon 01/11/2019 documented as of this encounter (statuses as of 2021) [address]10-2021 History of Past illness Narrative* Problem Noted Date Resolved Date Closed left subtrochanteric femur fracture 07/2207/27/2020 Facial numbness 03/31/2019 04/03/2019 GI bleed 12/31/2018 01/11/2019 Frequency of urination 03/19/2018 9 AVM (arteriovenous malformation) of colon 01/11/2019 documented as of this encounter (statuses as of 10/31/2021) [address]10-2021 History of Past illness Narrative* Problem Noted Date Resolved Date Closed left subtrochanteric femur fracture 07/2207/27/2020 Facial numbness 03/31/2019 04/03/2019 GI bleed 12/31/2018 01/11/2019 Frequency of urination 03/19/2018 9 AVM (arteriovenous malformation) of colon 01/11/2019 documented as of this encounter (statuses as of 11/07/2021) [address]10-2021 History of Past illness Narrative* Problem Noted Date Resolved Date Closed left subtrochanteric femur fracture 07/2207/27/2020 Facial numbness 03/31/2019 04/03/2019 GI bleed 12/31/2018 01/11/2019 Frequency of urination 03/19/2018 9 AVM (arteriovenous malformation) of colon 01/11/2019 documented as of this encounter (statuses as of 11/12/2021) [address]10-2021 History of Past illness Narrative* Problem Noted Date Resolved Date Closed left subtrochanteric femur fracture 07/2207/27/2020 Facial numbness 03/31/2019 04/03/2019 GI bleed 12/31/2018 01/11/2019 Frequency of urination 03/19/2018 9 AVM (arteriovenous malformation) of colon 01/11/2019 documented as of this encounter (statuses as of 11/15/2021) [address]10-2021 History of Past illness Narrative* Problem Noted Date Resolved Date Closed left subtrochanteric femur fracture 07/2207/27/2020 Facial numbness 03/31/2019 04/03/2019 GI bleed 12/31/2018 01/11/2019 Frequency of urination 03/19/2018 9 AVM (arteriovenous malformation) of colon 01/11/2019 documented as of this encounter (statuses as of 11/19/2021) [address]10-2021 History of Past illness Narrative* Problem Noted Date Resolved Date Closed left subtrochanteric femur fracture 07/2207/27/2020 Facial numbness 03/31/2019 04/03/2019 GI bleed 12/31/2018 01/11/2019 Frequency of urination 03/19/2018 9 AVM (arteriovenous malformation) of colon 01/11/2019 documented as of this encounter (statuses as of 11/19/2021) [address]10-2021 History of Past illness Narrative* Problem Noted Date Resolved Date Closed left subtrochanteric femur fracture 07/2207/27/2020 Facial numbness 03/31/2019 04/03/2019 GI bleed 12/31/2018 01/11/2019 Frequency of urination 03/19/2018 9 AVM (arteriovenous malformation) of colon 01/11/2019 documented as of this encounter (statuses as of 11/22/2021) [address]10-2021 History of Past illness Narrative* Problem Noted Date Resolved Date Closed left subtrochanteric femur fracture 07/2207/27/2020 Facial numbness 03/31/2019 04/03/2019 GI bleed 12/31/2018 01/11/2019 Frequency of urination 03/19/2018 9 AVM (arteriovenous malformation) of colon 01/11/2019 documented as of this encounter (statuses as of 12/01/2021) [address]10-2021 History of Past illness Narrative* Problem Noted Date Resolved Date Closed left subtrochanteric femur fracture 07/2207/27/2020 Facial numbness 03/31/2019 04/03/2019 GI bleed 12/31/2018 01/11/2019 Frequency of urination 03/19/2018 9 AVM (arteriovenous malformation) of colon 01/11/2019 documented as of this encounter (statuses as of 12/03/2021) [address]10-2021 History of Past illness Narrative* Problem Noted Date Resolved Date Closed left subtrochanteric femur fracture 07/2207/27/2020 Facial numbness 03/31/2019 04/03/2019 GI bleed 12/31/2018 01/11/2019 Frequency of urination 03/19/2018 9 AVM (arteriovenous malformation) of colon 01/11/2019 documented as of this encounter (statuses as of 12/04/2021) [address]10-2021 History of Past illness Narrative* Problem Noted Date Resolved Date Closed left subtrochanteric femur fracture 07/2207/27/2020 Facial numbness 03/31/2019 04/03/2019 GI bleed 12/31/2018 01/11/2019 Frequency of urination 03/19/2018 9 AVM (arteriovenous malformation) of colon 01/11/2019 documented as of this encounter (statuses as of 12/07/2021) [address]10-2021 History of Past illness Narrative* Problem Noted Date Resolved Date Closed left subtrochanteric femur fracture 07/2207/27/2020 Facial numbness 03/31/2019 04/03/2019 GI bleed 12/31/2018 01/11/2019 Frequency of urination 03/19/2018 9 AVM (arteriovenous malformation) of colon 01/11/2019 documented as of this encounter (statuses as of 12/12/2021) [address]10-2021 History of Past illness Narrative* Problem Noted Date Resolved Date Closed left subtrochanteric femur fracture 07/2207/27/2020 Facial numbness 03/31/2019 04/03/2019 GI bleed 12/31/2018 01/11/2019 Frequency of urination 03/19/2018 9 AVM (arteriovenous malformation) of colon 01/11/2019 documented as of this encounter (statuses as of 12/18/2021) [address]10-2021 History of Past illness Narrative* Problem Noted Date Resolved Date Closed left subtrochanteric femur fracture 07/2207/27/2020 Facial numbness 03/31/2019 04/03/2019 GI bleed 12/31/2018 01/11/2019 Frequency of urination 03/19/2018 9 AVM (arteriovenous malformation) of colon 01/11/2019 documented as of this encounter (statuses as of 12/19/2021) [address]10-2021 History of Past illness Narrative* Problem Noted Date Resolved Date Closed left subtrochanteric femur fracture 07/2207/27/2020 Facial numbness 03/31/2019 04/03/2019 GI bleed 12/31/2018 01/11/2019 Frequency of urination 03/19/2018 9 AVM (arteriovenous malformation) of colon 01/11/2019 documented as of this encounter (statuses as of 12/27/2021) [address]10-2021 History of Past illness Narrative* Problem Noted Date Resolved Date Closed left subtrochanteric femur fracture 07/2207/27/2020 Facial numbness 03/31/2019 04/03/2019 GI bleed 12/31/2018 01/11/2019 Frequency of urination 03/19/2018 9 AVM (arteriovenous malformation) of colon 01/11/2019 documented as of this encounter (statuses as of 01/16/2022) [address]10-2021 History of Past illness Narrative* Problem Noted Date Resolved Date Closed left subtrochanteric femur fracture 07/2207/27/2020 Facial numbness 03/31/2019 04/03/2019 GI bleed 12/31/2018 01/11/2019 Frequency of urination 03/19/2018 9 AVM (arteriovenous malformation) of colon 01/11/2019 documented as of this encounter (statuses as of 01/17/2022) [address]10-2021 History of Past illness Narrative* Problem Noted Date Resolved Date Closed left subtrochanteric femur fracture 07/2207/27/2020 Facial numbness 03/31/2019 04/03/2019 GI bleed 12/31/2018 01/11/2019 Frequency of urination 03/19/2018 9 AVM (arteriovenous malformation) of colon 01/11/2019 documented as of this encounter (statuses as of 01/17/2022) [address]10-2021 History of Past illness Narrative* Problem Noted Date Resolved Date Closed left subtrochanteric femur fracture 07/2207/27/2020 Facial numbness 03/31/2019 04/03/2019 GI bleed 12/31/2018 01/11/2019 Frequency of urination 03/19/2018 9 AVM (arteriovenous malformation) of colon 01/11/2019 documented as of this encounter (statuses as of 01/21/2022) [address]10-2021 History of Past illness Narrative* Problem Noted Date Resolved Date Closed left subtrochanteric femur fracture 07/2207/27/2020 Facial numbness 03/31/2019 04/03/2019 GI bleed 12/31/2018 01/11/2019 Frequency of urination 03/19/2018 9 AVM (arteriovenous malformation) of colon 01/11/2019 documented as of this encounter (statuses as of 01/24/2022) [address]10-2021 History of Past illness Narrative* Problem Noted Date Resolved Date Closed left subtrochanteric femur fracture 07/2207/27/2020 Facial numbness 03/31/2019 04/03/2019 GI bleed 12/31/2018 01/11/2019 Frequency of urination 03/19/2018 9 AVM (arteriovenous malformation) of colon 01/11/2019 documented as of this encounter (statuses as of 02/06/2022) [address]10-2021 History of Past illness Narrative* Problem Noted Date Resolved Date Closed left subtrochanteric femur fracture 07/2207/27/2020 Facial numbness 03/31/2019 04/03/2019 GI bleed 12/31/2018 01/11/2019 Frequency of urination 03/19/2018 9 AVM (arteriovenous malformation) of colon 01/11/2019 documented as of this encounter (statuses as of 02/14/2022) [address]10-2021 History of Past illness Narrative* Problem Noted Date Resolved Date Closed left subtrochanteric femur fracture 07/2207/27/2020 Facial numbness 03/31/2019 04/03/2019 GI bleed 12/31/2018 01/11/2019 Frequency of urination 03/19/2018 9 AVM (arteriovenous malformation) of colon 01/11/2019 documented as of this encounter (statuses as of 02/15/2022) [address]10-2021 History of Past illness Narrative* Problem Noted Date Resolved Date Closed left subtrochanteric femur fracture 07/2207/27/2020 Facial numbness 03/31/2019 04/03/2019 GI bleed 12/31/2018 01/11/2019 Frequency of urination 03/19/2018 9 AVM (arteriovenous malformation) of colon 01/11/2019 documented as of this encounter (statuses as of 02/19/2022) [address]10-2021 History of Past illness Narrative* Problem Noted Date Resolved Date Closed left subtrochanteric femur fracture 07/2207/27/2020 Facial numbness 03/31/2019 04/03/2019 GI bleed 12/31/2018 01/11/2019 Frequency of urination 03/19/2018 9 AVM (arteriovenous malformation) of colon 01/11/2019 documented as of this encounter (statuses as of 02/20/2022) [address]10-2021 History of Past illness Narrative* Problem Noted Date Resolved Date Closed left subtrochanteric femur fracture 07/2207/27/2020 Facial numbness 03/31/2019 04/03/2019 GI bleed 12/31/2018 01/11/2019 Frequency of urination 03/19/2018 9 AVM (arteriovenous malformation) of colon 01/11/2019 documented as of this encounter (statuses as of 02/26/2022) [address]10-2021 History of Past illness Narrative* Problem Noted Date Resolved Date Closed left subtrochanteric femur fracture 07/2207/27/2020 Facial numbness 03/31/2019 04/03/2019 GI bleed 12/31/2018 01/11/2019 Frequency of urination 03/19/2018 9 AVM (arteriovenous malformation) of colon 01/11/2019 documented as of this encounter (statuses as of 03/04/2022) [place] [address]10-2021 History of Past illness Narrative* Problem Noted Date Resolved Date Closed left subtrochanteric femur fracture 07/2207/27/2020 Facial numbness 03/31/2019 04/03/2019 GI bleed 12/31/2018 01/11/2019 Frequency of urination 03/19/2018 9 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/11/2019 documented as of this encounter (statuses as of 03/13/2022) [address]10-2021 History of Past illness Narrative* Problem Noted Date Resolved Date Closed left subtrochanteric femur fracture 07/2207/27/2020 Facial numbness 03/31/2019 04/03/2019 GI bleed 12/31/2018 01/11/2019 Frequency of urination 03/19/2018 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/11/2019 documented as of this encounter (statuses as of 03/18/2022) [address]10-2021 History of Past illness Narrative* Problem Noted Date Resolved Date Closed left subtrochanteric femur fracture 07/2207/27/2020 Facial numbness 03/31/2019 04/03/2019 GI bleed 12/31/2018 01/11/2019 Frequency of urination 03/19/2018 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/11/2019 documented as of this encounter (statuses as of 03/18/2022) [address]10-2021 History of Past illness Narrative* Problem Noted Date Resolved Date Closed left subtrochanteric femur fracture 07/2207/27/2020 Facial numbness 03/31/2019 04/03/2019 GI bleed 12/31/2018 01/11/2019 Frequency of urination 03/19/2018 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/11/2019 documented as of this encounter (statuses as of 03/18/2022) [address]10-2021 History of Past illness Narrative* Problem Noted Date Resolved Date Closed left subtrochanteric femur fracture 07/2207/27/2020 Facial numbness 03/31/2019 04/03/2019 GI bleed 12/31/2018 01/11/2019 Frequency of urination 03/19/2018 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/11/2019 documented as of this encounter (statuses as of 03/21/2022) [address]10-2021 History of Past illness Narrative* Problem Noted Date Resolved Date Closed left subtrochanteric femur fracture 07/2207/27/2020 Facial numbness 03/31/2019 04/03/2019 GI bleed 12/31/2018 01/11/2019 Frequency of urination 03/19/2018 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/11/2019 documented as of this encounter (statuses as of 03/21/2022) [address]10-2021 History of Past illness Narrative* Problem Noted Date Resolved Date Closed left subtrochanteric femur fracture 07/2207/27/2020 Facial numbness 03/31/2019 04/03/2019 GI bleed 12/31/2018 01/11/2019 Frequency of urination 03/19/2018 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/11/2019 documented as of this encounter (statuses as of 03/22/2022) [address]10-2021 History of Past illness Narrative* Problem Noted Date Resolved Date Closed left subtrochanteric femur fracture 07/2207/27/2020 Facial numbness 03/31/2019 04/03/2019 GI bleed 12/31/2018 01/11/2019 Frequency of urination 03/19/2018 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/11/2019 documented as of this encounter (statuses as of 03/25/2022) [address]10-2021 History of Past illness Narrative* Problem Noted Date Resolved Date Closed left subtrochanteric femur fracture 07/2207/27/2020 Facial numbness 03/31/2019 04/03/2019 GI bleed 12/31/2018 01/11/2019 Frequency of urination 03/19/2018 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/11/2019 documented as of this encounter (statuses as of 03/27/2022) [address]10-2021 History of Past illness Narrative* Problem Noted Date Resolved Date Closed left subtrochanteric femur fracture 07/2207/27/2020 Facial numbness 03/31/2019 04/03/2019 GI bleed 12/31/2018 01/11/2019 Frequency of urination 03/19/2018 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 documented as of this encounter (statuses as of 04/03/2022) [address]10-2021 History of Past illness Narrative* Problem Noted Date Resolved Date Closed left subtrochanteric femur fracture 07/2207/27/2020 Facial numbness 03/31/2019 04/03/2019 GI bleed 12/31/2018 01/11/2019 Frequency of urination 03/19/2018 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 documented as of this encounter (statuses as of 04/03/2022) [address]10-2021 History of Past illness Narrative* Problem Noted Date Resolved Date Closed left subtrochanteric femur fracture 07/2207/27/2020 Facial numbness 03/31/2019 04/03/2019 GI bleed 12/31/2018 01/11/2019 Frequency of urination 03/19/2018 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/11/2019 documented as of this encounter (statuses as of 04/05/2022) [address]10-2021 History of Past illness Narrative* Problem Noted Date Resolved Date Closed left subtrochanteric femur fracture 07/2207/27/2020 Facial numbness 03/31/2019 04/03/2019 GI bleed 12/31/2018 01/11/2019 Frequency of urination 03/19/2018 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 documented as of this encounter (statuses as of 04/06/2022) [address]10-2021 History of Past illness Narrative* Problem Noted Date Resolved Date Closed left subtrochanteric femur fracture 07/2207/27/2020 Facial numbness 03/31/2019 04/03/2019 GI bleed 12/31/2018 01/11/2019 Frequency of urination 03/19/2018 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 documented as of this encounter (statuses as of 04/19/2022) [address]10-2021 History of Past illness Narrative* Problem Noted Date Resolved Date Closed left subtrochanteric femur fracture 07/2207/27/2020 Facial numbness 03/31/2019 04/03/2019 GI bleed 12/31/2018 01/11/2019 Frequency of urination 03/19/2018 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 documented as of this encounter (statuses as of 04/19/2022) [address]10-2021 History of Past illness Narrative* Problem Noted Date Resolved Date Closed left subtrochanteric femur fracture 07/2207/27/2020 Facial numbness 03/31/2019 04/03/2019 GI bleed 12/31/2018 01/11/2019 Frequency of urination 03/19/2018 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 documented as of this encounter (statuses as of 04/19/2022) [address]10-2021 History of Past illness Narrative* Problem Noted Date Resolved Date Closed left subtrochanteric femur fracture 07/2207/27/2020 Facial numbness 03/31/2019 04/03/2019 GI bleed 12/31/2018 01/11/2019 Frequency of urination 03/19/2018 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 documented as of this encounter (statuses as of 04/20/2022) [address]10-2021 History of Past illness Narrative* Problem Noted Date Resolved Date Closed left subtrochanteric femur fracture 07/2207/27/2020 Facial numbness 03/31/2019 04/03/2019 GI bleed 12/31/2018 01/11/2019 Frequency of urination 03/19/2018 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/11/2019 documented as of this encounter (statuses as of 04/23/2022) [address]10-2021 History of Past illness Narrative* Problem Noted Date Resolved Date Closed left subtrochanteric femur fracture 07/2207/27/2020 Facial numbness 03/31/2019 04/03/2019 GI bleed 12/31/2018 01/11/2019 Frequency of urination 03/19/2018 9 AVM (arteriovenous malformation) of colon 01/11/2019 documented as of this encounter (statuses as of 04/25/2022) [address]10-2021 History of Past illness Narrative* Problem Noted Date Resolved Date Closed left subtrochanteric femur fracture 07/2207/27/2020 Facial numbness 03/31/2019 04/03/2019 GI bleed 12/31/2018 01/11/2019 Frequency of urination 03/19/2018 9 AVM (arteriovenous malformation) of colon 01/11/2019 documented as of this encounter (statuses as of 04/30/2022) [address]10-2021 History of Past illness Narrative* Problem Noted Date Resolved Date Closed left subtrochanteric femur fracture 07/2207/27/2020 Facial numbness 03/31/2019 04/03/2019 GI bleed 12/31/2018 01/11/2019 Frequency of urination 03/19/2018 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/11/2019 documented as of this encounter (statuses as of 05/15/2022) [address]10-2021 History of Past illness Narrative* Problem Noted Date Resolved Date Closed left subtrochanteric femur fracture 07/2207/27/2020 Facial numbness 03/31/2019 04/03/2019 GI bleed 12/31/2018 01/11/2019 Frequency of urination 03/19/2018 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/2019 documented as of this encounter (statuses as of 05/22/2022) [address]10-2021 History of Past illness Narrative* Problem Noted Date Resolved Date Closed left subtrochanteric femur fracture 07/2207/27/2020 Facial numbness 03/31/2019 04/03/2019 GI bleed 12/31/2018 01/11/2019 Frequency of urination 03/19/2018 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/11/2019 documented as of this encounter (statuses as of 05/23/2022) [address]10-2021 History of Past illness Narrative* Problem Noted Date Resolved Date Closed left subtrochanteric femur fracture 07/2207/27/2020 Facial numbness 03/31/2019 04/03/2019 GI bleed 12/31/2018 01/11/2019 Frequency of urination 03/19/2018 9 AVM (arteriovenous malformation) of colon 01/11/2019 documented as of this encounter (statuses as of 05/31/2022) [address]-2021 History of Past illness Narrative* Problem Noted Date Resolved Date Closed left subtrochanteric femur fracture 07/2207/27/2020 Facial numbness 03/31/2019 04/03/2019 GI bleed 12/31/2018 01/11/2019 Frequency of urination 03/19/2018 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/2019 documented as of this encounter (statuses as of 06/04/2022) [address]-2021 History of Past illness Narrative* Problem Noted Date Resolved Date Closed left subtrochanteric femur fracture 07/2207/27/2020 Facial numbness 03/31/2019 04/03/2019 GI bleed 12/31/2018 01/11/2019 Frequency of urination 03/19/2018 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/2019 documented as of this encounter (statuses as of 06/05/2022) [address]-2021 History of Past illness Narrative* Problem Noted Date Resolved Date Closed left subtrochanteric femur fracture 07/2207/27/2020 Facial numbness 03/31/2019 04/03/2019 GI bleed 12/31/2018 01/11/2019 Frequency of urination 03/19/2018 9 AVM (arteriovenous malformation) of colon 01/11/2019 documented as of this encounter (statuses as of 06/07/2022) [address]-2021 History of Past illness Narrative* Problem Noted Date Resolved Date Closed left subtrochanteric femur fracture 07/2207/27/2020 Facial numbness 03/31/2019 04/03/2019 GI bleed 12/31/2018 01/11/2019 Frequency of urination 03/19/2018 9 AVM (arteriovenous malformation) of colon 01/11/2019 documented as of this encounter (statuses as of 06/10/2022) [address]-2021 History of Past illness Narrative* Problem Noted Date Resolved Date Closed left subtrochanteric femur fracture 07/2207/27/2020 Facial numbness 03/31/2019 04/03/2019 GI bleed 12/31/2018 01/11/2019 Frequency of urination 03/19/2018 9 AVM (arteriovenous malformation) of colon 01/11/2019 documented as of this encounter (statuses as of 06/12/2022) [address]-2021 History of Past illness Narrative* Problem Noted Date Resolved Date Closed left subtrochanteric femur fracture 07/2207/27/2020 Facial numbness 03/31/2019 04/03/2019 GI bleed 12/31/2018 01/11/2019 Frequency of urination 03/19/2018 9 AVM (arteriovenous malformation) of colon 01/11/2019 documented as of this encounter (statuses as of 06/14/2022) [address]-2021 History of Past illness Narrative* Problem Noted Date Resolved Date Closed left subtrochanteric femur fracture 07/2207/27/2020 Facial numbness 03/31/2019 04/03/2019 GI bleed 12/31/2018 01/11/2019 Frequency of urination 03/19/2018 9 AVM (arteriovenous malformation) of colon 01/11/2019 documented as of this encounter (statuses as of 06/14/2022) [place] [address] History of Past illness Narrative* Problem Noted Date Resolved Date Closed left subtrochanteric femur fracture 07/2207/27/2020 Facial numbness 03/31/2019 04/03/2019 GI bleed 12/31/2018 01/11/2019 Frequency of urination 03/19/2018 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/11/2019 documented as of this encounter (statuses as of 06/19/2022) [address]-2021 History of Past illness Narrative* Problem Noted Date Resolved Date Closed left subtrochanteric femur fracture 07/2207/27/2020 Facial numbness 03/31/2019 04/03/2019 GI bleed 12/31/2018 01/11/2019 Frequency of urination 03/19/2018 9 AVM (arteriovenous malformation) of colon 01/11/2019 documented as of this encounter (statuses as of 06/21/2022) [address]-2021 History of Past illness Narrative* Problem Noted Date Resolved Date Closed left subtrochanteric femur fracture 07/2207/27/2020 Facial numbness 03/31/2019 04/03/2019 GI bleed 12/31/2018 01/11/2019 Frequency of urination 03/19/2018 9 AVM (arteriovenous malformation) of colon 01/11/2019 documented as of this encounter (statuses as of 06/24/2022) [address]-2021 History of Past illness Narrative* Problem Noted Date Resolved Date Closed left subtrochanteric femur fracture 07/2207/27/2020 Facial numbness 03/31/2019 04/03/2019 GI bleed 12/31/2018 01/11/2019 Frequency of urination 03/19/2018 9 AVM (arteriovenous malformation) of colon 01/11/2019 documented as of this encounter (statuses as of 06/25/2022) [address]-2021 History of Past illness Narrative* Problem Noted Date Resolved Date Closed left subtrochanteric femur fracture 07/2207/27/2020 Facial numbness 03/31/2019 04/03/2019 GI bleed 12/31/2018 01/11/2019 Frequency of urination 03/19/2018 9 AVM (arteriovenous malformation) of colon 01/11/2019 documented as of this encounter (statuses as of 06/27/2022) [address]-2021 History of Past illness Narrative* Problem Noted Date Resolved Date Closed left subtrochanteric femur fracture 07/2207/27/2020 Facial numbness 03/31/2019 04/03/2019 GI bleed 12/31/2018 01/11/2019 Frequency of urination 03/19/2018 9 AVM (arteriovenous malformation) of colon 01/11/2019 documented as of this encounter (statuses as of 06/28/2022) [address]-2021 History of Past illness Narrative* Problem Noted Date Resolved Date Closed left subtrochanteric femur fracture 07/2207/27/2020 Facial numbness 03/31/2019 04/03/2019 GI bleed 12/31/2018 01/11/2019 Frequency of urination 03/19/2018 9 AVM (arteriovenous malformation) of colon 01/11/2019 documented as of this encounter (statuses as of 07/01/2022) [address]-2021 History of Past illness Narrative* Problem Noted Date Resolved Date Closed left subtrochanteric femur fracture 07/2207/27/2020 Facial numbness 03/31/2019 04/03/2019 GI bleed 12/31/2018 01/11/2019 Frequency of urination 03/19/2018 9 AVM (arteriovenous malformation) of colon 01/11/2019 documented as of this encounter (statuses as of 07/02/2022) [address]-2021 History of Past illness Narrative* Problem Noted Date Resolved Date Closed left subtrochanteric femur fracture 07/2207/27/2020 Facial numbness 03/31/2019 04/03/2019 GI bleed 12/31/2018 01/11/2019 Frequency of urination 03/19/2018 9 AVM (arteriovenous malformation) of colon 01/11/2019 documented as of this encounter (statuses as of 07/04/2022) [address]21 History of Past illness Narrative* Problem Noted Date Resolved Date Closed left subtrochanteric femur fracture 07/2207/27/2020 Facial numbness 03/31/2019 04/03/2019 GI bleed 12/31/2018 01/11/2019 Frequency of urination 03/19/2018 9 AVM (arteriovenous malformation) of colon 01/11/2019 documented as of this encounter (statuses as of 07/05/2022) [address]10-2021 History of Past illness Narrative* Problem Noted Date Resolved Date Closed left subtrochanteric femur fracture 07/2207/27/2020 Facial numbness 03/31/2019 04/03/2019 GI bleed 12/31/2018 01/11/2019 Frequency of urination 03/19/2018 9 AVM (arteriovenous malformation) of colon 01/11/2019 documented as of this encounter (statuses as of 07/11/2022) [address]10-2021 History of Past illness Narrative* Problem Noted Date Resolved Date Closed left subtrochanteric femur fracture 07/2207/27/2020 Facial numbness 03/31/2019 04/03/2019 GI bleed 12/31/2018 01/11/2019 Frequency of urination 03/19/2018 9 AVM (arteriovenous malformation) of colon 01/11/2019 documented as of this encounter (statuses as of 07/11/2022) [address]10-2021 History of Past illness Narrative* Problem Noted Date Resolved Date Closed left subtrochanteric femur fracture 07/2207/27/2020 Facial numbness 03/31/2019 04/03/2019 GI bleed 12/31/2018 01/11/2019 Frequency of urination 03/19/2018 9 AVM (arteriovenous malformation) of colon 01/11/2019 documented as of this encounter (statuses as of 07/15/2022) [address]10-2021 History of Past illness Narrative* Problem Noted Date Resolved Date Closed left subtrochanteric femur fracture 07/2207/27/2020 Facial numbness 03/31/2019 04/03/2019 GI bleed 12/31/2018 01/11/2019 Frequency of urination 03/19/2018 9 AVM (arteriovenous malformation) of colon 01/11/2019 documented as of this encounter (statuses as of 07/15/2022) [address]10-2021 History of Past illness Narrative* Problem Noted Date Resolved Date Closed left subtrochanteric femur fracture 07/2207/27/2020 Facial numbness 03/31/2019 04/03/2019 GI bleed 12/31/2018 01/11/2019 Frequency of urination 03/19/2018 9 AVM (arteriovenous malformation) of colon 01/11/2019 documented as of this encounter (statuses as of 07/18/2022) [address]10-2021 History of Past illness Narrative* Problem Noted Date Resolved Date Closed left subtrochanteric femur fracture 07/2207/27/2020 Facial numbness 03/31/2019 04/03/2019 GI bleed 12/31/2018 01/11/2019 Frequency of urination 03/19/2018 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/11/2019 documented as of this encounter (statuses as of 07/19/2022) [address]10-2021 History of Past illness Narrative* Problem Noted Date Resolved Date Closed left subtrochanteric femur fracture 07/2207/27/2020 Facial numbness 03/31/2019 04/03/2019 GI bleed 12/31/2018 01/11/2019 Frequency of urination 03/19/2018 9 AVM (arteriovenous malformation) of colon 01/11/2019 documented as of this encounter (statuses as of 07/19/2022) [address]10-2021 History of Past illness Narrative* Problem Noted Date Resolved Date Closed left subtrochanteric femur fracture 07/2207/27/2020 Facial numbness 03/31/2019 04/03/2019 GI bleed 12/31/2018 01/11/2019 Frequency of urination 03/19/2018 9 AVM (arteriovenous malformation) of colon 01/11/2019 documented as of this encounter (statuses as of 07/19/2022) [address]10-2021 History of Past illness Narrative* Problem Noted Date Resolved Date Closed left subtrochanteric femur fracture 07/2207/27/2020 Facial numbness 03/31/2019 04/03/2019 GI bleed 12/31/2018 01/11/2019 Frequency of urination 03/19/2018 9 AVM (arteriovenous malformation) of colon 01/11/2019 documented as of this encounter (statuses as of 07/22/2022) [address]10-2021 History of Past illness Narrative* Problem Noted Date Resolved Date Closed left subtrochanteric femur fracture 07/2207/27/2020 Facial numbness 03/31/2019 04/03/2019 GI bleed 12/31/2018 01/11/2019 Frequency of urination 03/19/2018 9 AVM (arteriovenous malformation) of colon 01/11/2019 documented as of this encounter (statuses as of 07/23/2022) [address]10-2021 History of Past illness Narrative* Problem Noted Date Resolved Date Closed left subtrochanteric femur fracture 07/2207/27/2020 Facial numbness 03/31/2019 04/03/2019 GI bleed 12/31/2018 01/11/2019 Frequency of urination 03/19/2018 9 AVM (arteriovenous malformation) of colon 01/11/2019 documented as of this encounter (statuses as of 07/26/2022) [address]10-2021 History of Past illness Narrative* Problem Noted Date Resolved Date Closed left subtrochanteric femur fracture 07/2207/27/2020 Facial numbness 03/31/2019 04/03/2019 GI bleed 12/31/2018 01/11/2019 Frequency of urination 03/19/2018 9 AVM (arteriovenous malformation) of colon 01/11/2019 documented as of this encounter (statuses as of 07/26/2022) [address]10-2021 History of Past illness Narrative* Problem Noted Date Resolved Date Closed left subtrochanteric femur fracture 07/2207/27/2020 Facial numbness 03/31/2019 04/03/2019 GI bleed 12/31/2018 01/11/2019 Frequency of urination 03/19/2018 9 AVM (arteriovenous malformation) of colon 01/11/2019 documented as of this encounter (statuses as of 07/29/2022) [address]10-2021 History of Past illness Narrative* Problem Noted Date Resolved Date Closed left subtrochanteric femur fracture 07/2207/27/2020 Facial numbness 03/31/2019 04/03/2019 GI bleed 12/31/2018 01/11/2019 Frequency of urination 03/19/2018 9 AVM (arteriovenous malformation) of colon 01/11/2019 documented as of this encounter (statuses as of 08/01/2022) [address]10-2021 History of Past illness Narrative* Problem Noted Date Resolved Date Closed left subtrochanteric femur fracture 07/2207/27/2020 Facial numbness 03/31/2019 04/03/2019 GI bleed 12/31/2018 01/11/2019 Frequency of urination 03/19/2018 9 AVM (arteriovenous malformation) of colon 01/11/2019 documented as of this encounter (statuses as of 08/02/2022) [address]10-2021 History of Past illness Narrative* Problem Noted Date Resolved Date Closed left subtrochanteric femur fracture 07/2207/27/2020 Facial numbness 03/31/2019 04/03/2019 GI bleed 12/31/2018 01/11/2019 Frequency of urination 03/19/2018 9 AVM (arteriovenous malformation) of colon 01/11/2019 documented as of this encounter (statuses as of 08/02/2022) [address]10-2021 History of Past illness Narrative* Problem Noted Date Resolved Date Closed left subtrochanteric femur fracture 07/2207/27/2020 Facial numbness 03/31/2019 04/03/2019 GI bleed 12/31/2018 01/11/2019 Frequency of urination 03/19/2018 9 AVM (arteriovenous malformation) of colon 01/11/2019 documented as of this encounter (statuses as of 08/07/2022) [address]10-2021 History of Past illness Narrative* Problem Noted Date Resolved Date Closed left subtrochanteric femur fracture 07/2207/27/2020 Facial numbness 03/31/2019 04/03/2019 GI bleed 12/31/2018 01/11/2019 Frequency of urination 03/19/2018 9 AVM (arteriovenous malformation) of colon 01/11/2019 documented as of this encounter (statuses as of 08/08/2022) [address]10-2021 History of Past illness Narrative* Problem Noted Date Resolved Date Closed left subtrochanteric femur fracture 07/2207/27/2020 Facial numbness 03/31/2019 04/03/2019 GI bleed 12/31/2018 01/11/2019 Frequency of urination 03/19/2018 9 AVM (arteriovenous malformation) of colon 01/11/2019 documented as of this encounter (statuses as of 08/12/2022) [address]10-2021 History of Past illness Narrative* Problem Noted Date Resolved Date Closed left subtrochanteric femur fracture 07/2207/27/2020 Facial numbness 03/31/2019 04/03/2019 GI bleed 12/31/2018 01/11/2019 Frequency of urination 03/19/2018 9 AVM (arteriovenous malformation) of colon 01/11/2019 documented as of this encounter (statuses as of 08/14/2022) [address]10-2021 History of Past illness Narrative* Problem Noted Date Resolved Date Closed left subtrochanteric femur fracture 07/2207/27/2020 Facial numbness 03/31/2019 04/03/2019 GI bleed 12/31/2018 01/11/2019 Frequency of urination 03/19/2018 9 AVM (arteriovenous malformation) of colon 01/11/2019 documented as of this encounter (statuses as of 08/15/2022) [address]10-2021 History of Past illness Narrative* Problem Noted Date Resolved Date Closed left subtrochanteric femur fracture 07/2207/27/2020 Facial numbness 03/31/2019 04/03/2019 GI bleed 12/31/2018 01/11/2019 Frequency of urination 03/19/2018 9 AVM (arteriovenous malformation) of colon 01/11/2019 documented as of this encounter (statuses as of 08/19/2022) [address]10-2021 History of Past illness Narrative* Problem Noted Date Resolved Date Closed left subtrochanteric femur fracture 07/2207/27/2020 Facial numbness 03/31/2019 04/03/2019 GI bleed 12/31/2018 01/11/2019 Frequency of urination 03/19/2018 9 AVM (arteriovenous malformation) of colon 01/11/2019 documented as of this encounter (statuses as of 08/21/2022) [address]10-2021 History of Past illness Narrative* Problem Noted Date Resolved Date Closed left subtrochanteric femur fracture 07/2207/27/2020 Facial numbness 03/31/2019 04/03/2019 GI bleed 12/31/2018 01/11/2019 Frequency of urination 03/19/2018 9 AVM (arteriovenous malformation) of colon 01/11/2019 documented as of this encounter (statuses as of 08/27/2022) [address]10-2021 History of Past illness Narrative* Problem Noted Date Resolved Date Closed left subtrochanteric femur fracture 07/2207/27/2020 Facial numbness 03/31/2019 04/03/2019 GI bleed 12/31/2018 01/11/2019 Frequency of urination 03/19/2018 9 AVM (arteriovenous malformation) of colon 01/11/2019 documented as of this encounter (statuses as of 08/29/2022) [address]10-2021 History of Past illness Narrative* Problem Noted Date Resolved Date Closed left subtrochanteric femur fracture 07/2207/27/2020 Facial numbness 03/31/2019 04/03/2019 GI bleed 12/31/2018 01/11/2019 Frequency of urination 03/19/2018 9 AVM (arteriovenous malformation) of colon 01/11/2019 documented as of this encounter (statuses as of 09/16/2022) [address]10-2021 History of Past illness Narrative* Problem Noted Date Resolved Date Closed left subtrochanteric femur fracture 07/2207/27/2020 Facial numbness 03/31/2019 04/03/2019 GI bleed 12/31/2018 01/11/2019 Frequency of urination 03/19/2018 9 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/11/2019 documented as of this encounter (statuses as of 09/18/2022) [address]-2021 History of Past illness Narrative* Problem Noted Date Resolved Date Closed left subtrochanteric femur fracture 07/2207/27/2020 Facial numbness 03/31/2019 04/03/2019 GI bleed 12/31/2018 01/11/2019 Frequency of urination 03/19/2018 9 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 documented as of this encounter (statuses as of 09/26/2022) [address]-2021 History of Past illness Narrative* Problem Noted Date Resolved Date Closed left subtrochanteric femur fracture 07/2207/27/2020 Facial numbness 03/31/2019 04/03/2019 GI bleed 12/31/2018 01/11/2019 Frequency of urination 03/19/2018 9 AVM (arteriovenous malformation) of colon 01/11/2019 documented as of this encounter (statuses as of 10/03/2022) [address]-2021 History of Past illness Narrative* Problem Noted Date Resolved Date Closed left subtrochanteric femur fracture 07/2207/27/2020 Facial numbness 03/31/2019 04/03/2019 GI bleed 12/31/2018 01/11/2019 Frequency of urination 03/19/2018 9 AVM (arteriovenous malformation) of colon 01/11/2019 documented as of this encounter (statuses as of 10/10/2022) [address]-2021 History of Past illness Narrative* Problem Noted Date Resolved Date Closed left subtrochanteric femur fracture 07/2207/27/2020 Facial numbness 03/31/2019 04/03/2019 GI bleed 12/31/2018 01/11/2019 Frequency of urination 03/19/2018 9 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/11/2019 documented as of this encounter (statuses as of 10/10/2022) [address]10-2021 History of Past illness Narrative* Problem Noted Date Resolved Date Closed left subtrochanteric femur fracture 07/2207/27/2020 Facial numbness 03/31/2019 04/03/2019 GI bleed 12/31/2018 01/11/2019 Frequency of urination 03/19/2018 9 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/11/2019 documented as of this encounter (statuses as of 10/10/2022) [address]-2021 History of Past illness Narrative* Problem Noted Date Resolved Date Closed left subtrochanteric femur fracture 07/2207/27/2020 Facial numbness 03/31/2019 04/03/2019 GI bleed 12/31/2018 01/11/2019 Frequency of urination 03/19/2018 9 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/11/2019 documented as of this encounter (statuses as of 10/17/2022) [address]-2021 History of Past illness Narrative* Problem Noted Date Resolved Date Closed left subtrochanteric femur fracture 07/2207/27/2020 Facial numbness 03/31/2019 04/03/2019 GI bleed 12/31/2018 01/11/2019 Frequency of urination 03/19/2018 9 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/11/2019 documented as of this encounter (statuses as of 10/17/2022) [address]-2021 History of Past illness Narrative* Problem Noted Date Resolved Date Closed left subtrochanteric femur fracture 07/2207/27/2020 Facial numbness 03/31/2019 04/03/2019 GI bleed 12/31/2018 01/11/2019 Frequency of urination 03/19/2018 9 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/2019 documented as of this encounter (statuses as of 10/18/2022) [address]-2021 History of Past illness Narrative* Problem Noted Date Resolved Date Closed left subtrochanteric femur fracture 07/2207/27/2020 Facial numbness 03/31/2019 04/03/2019 GI bleed 12/31/2018 01/11/2019 Frequency of urination 03/19/2018 9 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 documented as of this encounter (statuses as of 10/18/2022) [address]-2021 History of Past illness Narrative* Problem Noted Date Diagnosed Date Resolved Date Closed left subtrochanteric femur fracture 07/22/2020 07/27/2020 Facial numbness 03/31/2019 04/03/2019 GI bleed 12/31/2018 01/11/2019 Frequency of urination 03/19/201802/11 AVM (arteriovenous malformation) of colon 01/11/2019 documented as of this encounter (statuses as of 10/19/2022) [address]-2021 History of Past illness Narrative* Problem Noted Date Diagnosed Date Resolved Date Closed left subtrochanteric femur fracture 07/22/2020 07/27/2020 Facial numbness 03/31/2019 04/03/2019 GI bleed 12/31/2018 01/11/2019 Frequency of urination 03/19/201802/11 AVM (arteriovenous malformation) of colon 01/11/2019 documented as of this encounter (statuses as of 10/22/2022) [address]-2021 History of Past illness Narrative* Problem Noted Date Diagnosed Date Resolved Date Closed left subtrochanteric femur fracture 07/22/2020 07/27/2020 Facial numbness 03/31/2019 04/03/2019 GI bleed 12/31/2018 01/11/2019 Frequency of urination 03/19/201802/11 AVM (arteriovenous malformation) of colon 01/11/2019 documented as of this encounter (statuses as of 10/24/2022) [address]-2021 History of Past illness Narrative* Problem Noted Date Diagnosed Date Resolved Date Closed left subtrochanteric femur fracture 07/22/2020 07/27/2020 Facial numbness 03/31/2019 04/03/2019 GI bleed 12/31/2018 01/11/2019 Frequency of urination 03/19/201802/11 AVM (arteriovenous malformation) of colon 01/11/2019 documented as of this encounter (statuses as of 10/24/2022) [address]-2021 History of Past illness Narrative* Problem Noted Date Diagnosed Date Resolved Date Closed left subtrochanteric femur fracture 07/22/2020 07/27/2020 Facial numbness 03/31/2019 04/03/2019 GI bleed 12/31/2018 01/11/2019 Frequency of urination 03/19/201802/11 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 documented as of this encounter (statuses as of 11/04/2022) [address]-2021 History of Past illness Narrative* Problem Noted Date Diagnosed Date Resolved Date Closed left subtrochanteric femur fracture 07/22/2020 07/27/2020 Facial numbness 03/31/2019 04/03/2019 GI bleed 12/31/2018 01/11/2019 Frequency of urination 03/19/201802/11 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 documented as of this encounter (statuses as of 11/06/2022) [address]-2021 History of Past illness Narrative* Problem Noted Date Diagnosed Date Resolved Date Closed left subtrochanteric femur fracture 07/22/2020 07/27/2020 Facial numbness 03/31/2019 04/03/2019 GI bleed 12/31/2018 01/11/2019 Frequency of urination 03/19/201802/11 AVM (arteriovenous malformation) of colon 01/11/2019 documented as of this encounter (statuses as of 11/07/2022) [address]-2021 History of Past illness Narrative* Problem Noted Date Diagnosed Date Resolved Date Closed left subtrochanteric femur fracture 07/22/2020 07/27/2020 Facial numbness 03/31/2019 04/03/2019 GI bleed 12/31/2018 01/11/2019 Frequency of urination 03/19/201802/11 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 documented as of this encounter (statuses as of 11/12/2022) [address]-2021 History of Past illness Narrative* Problem Noted Date Diagnosed Date Resolved Date Closed left subtrochanteric femur fracture 07/22/2020 07/27/2020 Facial numbness 03/31/2019 04/03/2019 GI bleed 12/31/2018 01/11/2019 Frequency of urination 03/19/201802/11 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 documented as of this encounter (statuses as of 11/13/2022) [address]-2021 History of Past illness Narrative* Problem Noted Date Diagnosed Date Resolved Date Closed left subtrochanteric femur fracture 07/22/2020 07/27/2020 Facial numbness 03/31/2019 04/03/2019 GI bleed 12/31/2018 01/11/2019 Frequency of urination 03/19/201802/11 AVM (arteriovenous malformation) of colon 01/11/2019 documented as of this encounter (statuses as of 11/15/2022) [address]-2021 History of Past illness Narrative* Problem Noted Date Diagnosed Date Resolved Date Closed left subtrochanteric femur fracture 07/22/2020 07/27/2020 Facial numbness 03/31/2019 04/03/2019 GI bleed 12/31/2018 01/11/2019 Frequency of urination 03/19/201802/11 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/11/2019 documented as of this encounter (statuses as of 11/16/2022) [address]10-2021 History of Past illness Narrative* Problem Noted Date Diagnosed Date Resolved Date Closed left subtrochanteric femur fracture 07/22/2020 07/27/2020 Facial numbness 03/31/2019 04/03/2019 GI bleed 12/31/2018 01/11/2019 Frequency of urination 03/19/201802/11 AVM (arteriovenous malformation) of colon 01/11/2019 documented as of this encounter (statuses as of 11/18/2022) [address]10-2021 History of Past illness Narrative* Problem Noted Date Diagnosed Date Resolved Date Closed left subtrochanteric femur fracture 07/22/2020 07/27/2020 Facial numbness 03/31/2019 04/03/2019 GI bleed 12/31/2018 01/11/2019 Frequency of urination 03/19/201802/11 AVM (arteriovenous malformation) of colon 01/11/2019 documented as of this encounter (statuses as of 11/21/2022) [address]10-2021 History of Past illness Narrative* Problem Noted Date Diagnosed Date Resolved Date Closed left subtrochanteric femur fracture 07/22/2020 07/27/2020 Facial numbness 03/31/2019 04/03/2019 GI bleed 12/31/2018 01/11/2019 Frequency of urination 03/19/201802/11 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/11/2019 documented as of this encounter (statuses as of 11/22/2022) [address]10-2021 History of Past illness Narrative* Problem Noted Date Diagnosed Date Resolved Date Closed left subtrochanteric femur fracture 07/22/2020 07/27/2020 Facial numbness 03/31/2019 04/03/2019 GI bleed 12/31/2018 01/11/2019 Frequency of urination 03/19/201802/11 AVM (arteriovenous malformation) of colon 01/11/2019 documented as of this encounter (statuses as of 11/23/2022) [address]10-2021 History of Past illness Narrative* Problem Noted Date Diagnosed Date Resolved Date Closed left subtrochanteric femur fracture 07/22/2020 07/27/2020 Facial numbness 03/31/2019 04/03/2019 GI bleed 12/31/2018 01/11/2019 Frequency of urination 03/19/201802/11 AVM (arteriovenous malformation) of colon 01/11/2019 documented as of this encounter (statuses as of 11/24/2022) [address]10-2021 History of Past illness Narrative* Problem Noted Date Diagnosed Date Resolved Date Closed left subtrochanteric femur fracture 07/22/2020 07/27/2020 Facial numbness 03/31/2019 04/03/2019 GI bleed 12/31/2018 01/11/2019 Frequency of urination 03/19/201802/11 AVM (arteriovenous malformation) of colon 01/11/2019 documented as of this encounter (statuses as of 11/26/2022) [address]10-2021 History of Past illness Narrative* Problem Noted Date Diagnosed Date Resolved Date Closed left subtrochanteric femur fracture 07/22/2020 07/27/2020 Facial numbness 03/31/2019 04/03/2019 GI bleed 12/31/2018 01/11/2019 Frequency of urination 03/19/201802/11 AVM (arteriovenous malformation) of colon 01/11/2019 documented as of this encounter (statuses as of 11/27/2022) [address]10-2021 History of Past illness Narrative* Problem Noted Date Diagnosed Date Resolved Date Closed left subtrochanteric femur fracture 07/22/2020 07/27/2020 Facial numbness 03/31/2019 04/03/2019 GI bleed 12/31/2018 01/11/2019 Frequency of urination 03/19/201802/11 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/11/2019 documented as of this encounter (statuses as of 11/27/2022) [address]10-2021 History of Past illness Narrative* Problem Noted Date Diagnosed Date Resolved Date Closed left subtrochanteric femur fracture 07/22/2020 07/27/2020 Facial numbness 03/31/2019 04/03/2019 GI bleed 12/31/2018 01/11/2019 Frequency of urination 03/19/201802/11 AVM (arteriovenous malformation) of colon 01/11/2019 documented as of this encounter (statuses as of 11/28/2022) [address]10-2021 History of Past illness Narrative* Problem Noted Date Diagnosed Date Resolved Date Closed left subtrochanteric femur fracture 07/22/2020 07/27/2020 Facial numbness 03/31/2019 04/03/2019 GI bleed 12/31/2018 01/11/2019 Frequency of urination 03/19/201802/11 AVM (arteriovenous malformation) of colon 01/11/2019 documented as of this encounter (statuses as of 11/28/2022) [address]10-2021 History of Past illness Narrative* Problem Noted Date Diagnosed Date Resolved Date Closed left subtrochanteric femur fracture 07/22/2020 07/27/2020 Facial numbness 03/31/2019 04/03/2019 GI bleed 12/31/2018 01/11/2019 Frequency of urination 03/19/201802/11 AVM (arteriovenous malformation) of colon 01/11/2019 documented as of this encounter (statuses as of 11/29/2022) [facility]04-10-2021 History of Past illness Narrative* Problem Noted Date Diagnosed Date Resolved Date Closed left subtrochanteric femur fracture 07/22/2020 07/27/2020 Facial numbness 03/31/2019 04/03/2019 GI bleed 12/31/2018 01/11/2019 Frequency of urination 03/19/201802/11 AVM (arteriovenous malformation) of colon 01/11/2019 documented as of this encounter (statuses as of 12/09/2022) [address]10-2021 History of Past illness Narrative* Problem Noted Date Diagnosed Date Resolved Date Closed left subtrochanteric femur fracture 07/22/2020 07/27/2020 Facial numbness 03/31/2019 04/03/2019 GI bleed 12/31/2018 01/11/2019 Frequency of urination 03/19/201802/11 AVM (arteriovenous malformation) of colon 01/11/2019 documented as of this encounter (statuses as of 12/10/2022) [facility] [place] [facility] No data available for this section [facility] Evaluation note* Diagnosis Impaired functional mobility, balance, gait, and endurance- Primary Chronic pain of left knee Pain in joint, lower leg Left hip pain Pain in joint, pelvic region and thigh [facility] Diagnosis Elevated prostate specific antigen (PSA)- Primary Personal history of renal cancer Personal history of malignant neoplasm of kidney Hydrocele in adult Renal cancer, right (HCC) 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 [facility] Diagnosis Impaired functional mobility, balance, gait, and endurance- Primary [facility] Diagnosis Impaired functional mobility, balance, gait, and endurance- Primary Left hip pain Pain in joint, pelvic region and thigh Chronic pain of left knee Pain in joint, lower leg [facility] Diagnosis Impaired functional mobility, balance, gait, and endurance- Primary Left hip pain Pain in joint, pelvic region and thigh [facility] Diagnosis Impaired functional mobility, balance, gait, and endurance- Primary Left hip pain Pain in joint, pelvic region and thigh Chronic pain of left knee Pain in joint, lower leg Pain in left hip Pain in joint, pelvic region and thigh [facility] [place] [facility]* Diagnosis Impaired functional mobility, balance, gait, and endurance- Primary Chronic pain of left knee Pain in joint, lower leg Left hip pain Pain in joint, pelvic region and thigh [facility] [place] [facility]* Diagnosis Impaired functional mobility, balance, gait, and endurance- Primary Chronic pain of left knee Pain in joint, lower leg Left hip pain Pain in joint, pelvic region and thigh [facility] Diagnosis Impaired functional mobility, balance, gait, and endurance- Primary Chronic pain of left knee Pain in joint, lower leg Left hip pain Pain in joint, pelvic region and thigh [facility] [place] [facility]* Diagnosis CLL (chronic lymphocytic leukemia) (HCC)- Primary Chronic lymphoid leukemia, without mention of having achieved remission [facility] [place] [facility]* Diagnosis Elevated prostate specific antigen (PSA)- Primary [facility]* Diagnosis Impaired functional mobility, balance, gait, and endurance- Primary Chronic pain of left knee Pain in joint, lower leg Left hip pain Pain in joint, pelvic region and thigh [facility] [place] [facility]* Diagnosis Elevated PSA- Primary Elevated prostate specific antigen (PSA) Primary insomnia Persistent disorder of initiating or maintaining sleep [facility] [place] [facility]* Diagnosis Impaired functional mobility, balance, gait, and endurance- Primary Chronic pain of left knee Pain in joint, lower leg Left hip pain Pain in joint, pelvic region and thigh [facility]* Diagnosis Iron deficiency anemia due to chronic blood loss- Primary Iron deficiency anemia secondary to blood loss (chronic) Other insomnia [facility]* Diagnosis Impaired functional mobility, balance, gait, and endurance- Primary [facility] [place] [facility]* Diagnosis Post PTCA- Primary Postsurgical percutaneous [...] NSTEMI (non-ST elevated myocardial infarction) ([facility]) Acute myocardial infarction, subendocardial infarction, episode of care unspecified [facility]* Diagnosis Physical deconditioning- Primary Debility, unspecified Impaired functional mobility, balance, gait, and endurance Muscular deconditioning Muscular wasting and disuse atrophy, not elsewhere classified [facility] [place] [facility]* Diagnosis Physical deconditioning- Primary Debility, unspecified Impaired functional mobility, balance, gait, and endurance Muscular deconditioning Muscular wasting and disuse atrophy, not elsewhere classified documented in this encounter [facility] note* Diagnosis Physical deconditioning- Primary Debility, unspecified Impaired functional mobility, balance, gait, and endurance Muscular deconditioning Muscular wasting and disuse atrophy, not elsewhere classified documented in this encounter [facility] note* Diagnosis Essential thrombocythemia (HCC)- Primary Essential thrombocythemia documented in this encounter [facility] note* Diagnosis Physical deconditioning- Primary Debility, unspecified [facility] [place] [facility]* Diagnosis Physical deconditioning- Primary Debility, unspecified Impaired functional mobility, balance, gait, and endurance documented in this encounter [facility] note* Diagnosis Other insomnia Renal cancer, right (HCC) CLL (chronic lymphocytic leukemia) (HCC) Chronic lymphoid leukemia, without mention of having achieved remission [facility] [place] [facility]* Diagnosis Chronic obstructive pulmonary disease with acute exacerbation (HCC)- Primary Obstructive chronic bronchitis with exacerbation Deep vein thrombosis (DVT) of left lower extremity, unspecified chronicity, unspecified vein (HCC) Localized swelling, mass and lump, left upper limb History of colonic polyps Personal history of colonic polyps [facility] [place] [facility]* Diagnosis Deep vein thrombosis (DVT) of left lower extremity, unspecified chronicity, unspecified vein (HCC) Localized swelling, mass and lump, left upper limb [facility] [place] [facility]* Diagnosis Iron deficiency anemia due to chronic blood loss- Primary Iron deficiency anemia secondary to blood loss (chronic) Acute deep vein thrombosis (DVT) of popliteal vein of left lower extremity (HCC) Right calf pain [facility] [place] [facility]* Diagnosis NSTEMI (non-ST elevated myocardial infarction) (HCC)- Primary Acute myocardial infarction, subendocardial infarction, episode [...] thrombosis and embolism [facility] [...] cancer, right (HCC) [facility]* [...] Dizziness and giddiness [facility] [place] [facility]* Diagnosis Essential thrombocythemia (HCC)- Primary Essential thrombocythemia documented [facility] [place] [facility]* Diagnosis 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 medical condition- Primary Mood disorder in conditions classified elsewhere [facility] [place] [facility]* Diagnosis CIRA on CPAP- Primary Obstructive sleep apnea (adult) (pediatric) Primary insomnia Persistent disorder of initiating or maintaining sleep Severe muscle deconditioning Other specific muscle disorders [facility] [place] [facility]* Diagnosis CLL (chronic lymphocytic leukemia) (HCC)- Primary Chronic lymphoid leukemia, without mention of having achieved remission Essential thrombocythemia (HCC) Essential thrombocythemia Acute blood loss anemia- Primary Acute posthemorrhagic anemia Severe anemia Stage 3 chronic kidney disease, unspecified whether stage 3a or 3b CKD (HCC) Other iron deficiency anemia [facility] [place] [facility]* Diagnosis Pulmonary embolism, unspecified chronicity, unspecified pulmonary embolism type, unspecified whether acute cor pulmonale present (HCC)- Primary Renal cancer, right (HCC) Deep vein thrombosis (DVT) of femoral vein of left lower extremity, unspecified chronicity (HCC) documented [facility] [place] [facility]* Diagnosis Atrial fibrillation, unspecified type (CMS/HCC)- Primary documented in this encounter [facility] Work Phone: Evaluation note* Diagnosis Acute midline low back pain without sciatica- Primary Physical deconditioning Debility, unspecified [facility] [place] [facility]* Diagnosis Physical deconditioning- Primary Debility, unspecified [facility] [place] [facility]* Diagnosis Physical deconditioning- Primary Debility, unspecified Acute midline low back pain without sciatica Impaired functional mobility, balance, gait, and endurance documented [facility] [place] [facility]* Diagnosis Physical deconditioning- Primary Debility, unspecified [facility] Diagnosis Physical deconditioning- Primary Debility, unspecified [facility] [place] [facility]* Diagnosis Physical deconditioning- Primary Debility, unspecified Acute midline low back pain without sciatica documented in this encounter [facility] note* Diagnosis Physical deconditioning- Primary Debility, unspecified documented in this encounter [facility] note* Diagnosis Physical deconditioning- Primary Debility, unspecified documented in this encounter [facility] note* Diagnosis Physical deconditioning- Primary Debility, unspecified Acute midline low back pain without sciatica Impaired functional mobility, balance, gait, and endurance documented in this encounter [facility] note* Diagnosis Acute midline low back pain without sciatica- Primary documented in this encounter [facility] note* Diagnosis Iron deficiency anemia due to chronic blood loss- Primary Iron deficiency anemia secondary to blood loss (chronic) documented in this encounter [facility] note* Diagnosis Other non-recurrent acute nonsuppurative otitis media of right ear- Primary Wheezing Acute cough documented in this encounter [facility] note* Diagnosis Iron deficiency anemia due to chronic blood loss- Primary Iron deficiency anemia secondary to blood loss (chronic) documented in this encounter [facility] note* Diagnosis Impaired functional mobility, balance, gait, and endurance- Primary documented in this encounter [facility] note* Diagnosis Impaired functional mobility, balance, gait, and endurance- Primary documented in this encounter [facility] note* Diagnosis Impaired functional mobility, balance, gait, and endurance- Primary Acute midline low back pain without sciatica Physical deconditioning Debility, unspecified Muscular deconditioning Muscular wasting and disuse atrophy, not elsewhere classified documented in this encounter [facility] Discharge instructions No data available for this section [facility] Instructions* Attachments The following attachments cannot be sent through Care Everywhere. * Ear Infection ED (Faroese) * Azithromycin (Systemic), ADULT ([place]aroese) [facility] No data available for this section [facility] Reason for referral (narrative)* Outpatient Procedure (Routine) - Pending Review Specialty Diagnoses / Procedures Referred By Yasmin t Referred To Contact [facility] Diagnoses History of colonic polyps Procedures COLONOSCOPY SCREENING COLONOSCOPY FLX DX W/COLLJ SPEC WHEN PFRMD Ulises Ramos, DO [address] [place] [address] [facility] [address] [place] [id number] Referral ID Status Reason Start Date Expiration Date Visits Requested Visits Authorized [id number] Pending Review Auto-Generat ed Referral 07/02/2022 07/03/2023 [...] XTR VEINS UNILATERAL/LIMITED STUDY Ulises Ramos DO [address] [place] [address] [facility] Referral ID Status Reason Start Date Expiration Date Visits Requested Visits Authorized [id number] Pending Review Auto-Generat ed Referral 07/02/2022 08/01/2023 1 1 * Outpatient Procedure (Routine) - Pending Review Specialty Diagnoses / Procedures Referred By Contac t Referred To [facility] Diagnoses Chronic obstructive pulmonary disease with acute exacerbation (HCC) Procedures SPIROMETRY - BASELINE AND POST DILATOR BRNCDILAT RSPSE SPMTRY PRE&POST-BRNCDILAT ADMN Ulises Ramos DO [address] [place] [address] [facility] [address] [place] [id number] Referral ID Status Reason Start Date Expiration Date Visits Requested Visits Authorized [id number] Pending Review Auto-Generat ed Referral 07/02/2022 08/01/2023 1 1 [facility] for referral (narrative)* Diagnostic Procedure Only (Routine) - Closed Specialty Diagnoses / Procedures Referred By Contac t Referred To Contact [facility] Diagnoses Deep vein thrombosis (DVT) of left lower extremity, unspecified chronicity, unspecified vein (HCC) Localized swelling, mass and lump, left upper limb Procedures US DVT LOWER LT DUP-SCAN XTR VEINS UNILATERAL/LIMITED STUDY Ulises Ramos DO [address] [place] [address] [facility] Referral ID Status Reason Start Date Expiration Date V isits Requested Visits Authorized [id number] Closed Auto-Generate d Referral 07/02/2022 08/01/2023 1 1 [facility] for referral (narrative)* Diagnostic Procedure Only (Routine) - Authorized Specialty Diagnoses / Procedures Referred By Contac t Referred To Contact [facility] Diagnoses Iron deficiency anemia due to chronic blood loss Acute deep vein thrombosis (DVT) of popliteal vein of left lower extremity (HCC) Right calf pain Procedures US EXTREMITY MASS/FLUID COLLECTION LEFT Ulises Ramos DO [address] [place] [address] [facility] Referral ID Status Reason Start Date Expiration Date Visits Requested Visits Authorized [id number] Authorized Auto-Generat ed Referral 07/11/2022 08/10/2023 1 [...] RIGHT DUP-SCAN XTR VEINS UNILATERAL/LIMITED STUDY Ulises Ramos DO [address] [place] [address] [facility] Referral ID Status Reason Start Date Expiration Date Visits Requested Visits Authorized [id number] Authorized Auto-Generat ed Referral 07/11/2022 08/10/2023 1 1 [facility] for referral (narrative)* Diagnostic Procedure Only (Routine) - Closed Specialty Diagnoses / Procedures Referred By Contac t Referred To Contact [facility] Diagnoses Iron deficiency anemia due to chronic blood loss Acute deep vein thrombosis (DVT) of popliteal vein of left lower extremity (HCC) Right calf pain Procedures US DVT LOWER RIGHT DUP-SCAN XTR VEINS UNILATERAL/LIMITED STUDY Ulises Ramos, DO [address] [place] [address] [facility] Referral ID Status Reason Start Date Expiration Date V isits Requested Visits Authorized [id number] Closed Auto-Generate d Referral 07/11/2022 08/10/2023 1 1 [facility] for referral (narrative)* Diagnostic Procedure Only (Routine) - Closed Specialty Diagnoses / Procedures Referred By Contac t Referred To Contact [facility] Diagnoses Iron deficiency anemia due to chronic blood loss Acute deep vein thrombosis (DVT) of popliteal vein of left lower extremity (HCC) Right calf pain Procedures US EXTREMITY MASS/FLUID COLLECTION LEFT Ulises Ramos, DO [address] [place] [address] [facility] Referral ID Status Reason Start Date Expiration Date V isits Requested Visits Authorized [id number] Closed Auto-Generate d Referral 07/11/2022 08/10/2023 1 1 [facility] for referral (narrative)* Outpatient Procedure (Routine) - Pending Review Specialty Diagnoses / Procedures Referred By Contac t Referred To Contact [facility] Diagnoses Gastrointestinal hemorrhage, unspecified gastrointestinal hemorrhage type Procedures COLONOSCOPY DIAGNOSTIC COLONOSCOPY FLX DX W/COLLJ SPEC WHEN Hortencia Henderson MD [address] [place] [address] [facility] [address] [place] [address] Referral ID Status Reason Start Date Expiration Date Visits Requested Visits Authorized [id number] Pending Review Auto-Generat ed Referral 08/07/2022 08/08/2023 1 1 * Outpatient Procedure (Routine) - Pending Review Specialty Diagnoses / Procedures Referred By Yasmin carey Referred To [facility] Diagnoses Gastrointestinal hemorrhage, unspecified gastrointestinal hemorrhage type Procedures ENTEROSCOPY ENDOSCOPY UPPER SMALL INTESTINE Hortencia Gallardo MD [address] [place] [address] [address] Referral ID Status Reason Start Date Expiration Date Visits Requested Visits Authorized [id number] Pending Review Auto-Generat ed Referral 08/07/2022 08/08/2023 1 1 [facility] for referral (narrative)* Outpatient Procedure (Routine) - Closed Specialty Diagnoses / Procedures Referred By Yasmin t Referred To [facility] Diagnoses Gastrointestinal hemorrhage, unspecified gastrointestinal hemorrhage type Procedures COLONOSCOPY DIAGNOSTIC COLONOSCOPY FLX DX W/COLLJ SPEC WHEN PFRMD Hortencia Gallardo MD [address] [place] [address] [address] Referral ID Status Reason Start Date Expiration Date V isits Requested Visits Authorized [id number] Closed Auto-Generate d Referral 08/07/2022 08/08/2023 1 1 * Outpatient Procedure (Routine) - Closed Specialty Diagnoses / Procedures Referred By Yasmin t Referred To [facility] Diagnoses Gastrointestinal hemorrhage, unspecified gastrointestinal hemorrhage type Procedures ENTEROSCOPY ENDOSCOPY UPPER SMALL INTESTINE Hortencia Gallardo MD [address] [place] [address] [address] Referral ID Status Reason Start Date Expiration Date V isits Requested Visits Authorized [id number] Closed Auto-Generate d Referral 08/07/2022 08/08/2023 1 1 [facility] for referral (narrative)* Diagnostic Procedure Only (Routine) - Closed Specialty Diagnoses / Procedures Referred By Contac t Referred To Contact US IMAGING Diagnoses Leg edema Procedures US DVT LOWER BILATERAL DUP-SCAN XTR VEINS COMPLETE BILATERAL STUDY Halle Dale MD [address] [place] [address] Us Imaging Referral ID Status Reason Start Date Expiration Date V isits Requested Visits Authorized [id number] Closed Auto-Generate d Referral 10/16/2022 11/15/2023 1 1 [facility] for referral (narrative)* Diagnostic Procedure Only (Routine) - Closed Specialty Diagnoses / Procedures Referred By Contac t Referred To Contact US IMAGING Diagnoses Leg edema Procedures US DVT LOWER BILATERAL DUP-SCAN XTR VEINS COMPLETE BILATERAL STUDY Halle Dale MD [address] [place] [address] Us Imaging Referral ID Status Reason Start Date Expiration Date V isits Requested Visits Authorized [id number] Closed Auto-Generate d Referral 10/16/2022 11/15/2023 1 1 [facility] for visit Narrative* Diagnostic Procedure Only (Routine) - Closed Specialty Diagnoses / Procedures Referred By Contac t Referred To Contact US IMAGING Diagnoses Deep vein thrombosis (DVT) of left lower extremity, unspecified chronicity, unspecified vein (HCC) Localized swelling, mass and lump, left upper limb Procedures US DVT LOWER LT DUP-SCAN XTR VEINS UNILATERAL/LIMITED STUDY Ulises Ramos, DO [address] [place] [address] Us Imaging Referral ID Status Reason Start Date Expiration Date V isits Requested Visits Authorized [id number] Closed Auto-Generate d Referral 07/02/2022 08/01/2023 1 1 [facility] for visit Narrative* Diagnostic Procedure Only (Routine) - Closed Specialty Diagnoses / Procedures Referred By Contac t Referred To Contact US IMAGING Diagnoses Iron deficiency anemia due to chronic blood loss Acute deep vein thrombosis (DVT) of popliteal vein of left lower extremity (HCC) Right calf pain Procedures US DVT LOWER RIGHT DUP-SCAN XTR VEINS UNILATERAL/LIMITED STUDY RichardUlises lawrence, DO [address] [place] [address] Us Imaging Referral ID Status Reason Start Date Expiration Date V isits Requested Visits Authorized [id number] Closed Auto-Generate d Referral 07/11/2022 08/10/2023 1 1 [facility] for visit Narrative* Diagnostic Procedure Only (Routine) - Closed Specialty Diagnoses / Procedures Referred By Contac t Referred To Contact US IMAGING Diagnoses Iron deficiency anemia due to chronic blood loss Acute deep vein thrombosis (DVT) of popliteal vein of left lower extremity (HCC) Right calf pain Procedures US EXTREMITY MASS/FLUID COLLECTION LEFT Ulises Ramos, DO [address] [place] [address] Us Imaging Referral ID Status Reason Start Date Expiration Date V isits Requested Visits Authorized [id number] Closed Auto-Generate d Referral 07/11/2022 08/10/2023 1 1 [facility] for visit Narrative* Outpatient Procedure (Routine) - Closed Specialty Diagnoses / Procedures Referred By Contac t Referred To Contact [facility] Diagnoses Gastrointestinal hemorrhage, unspecified gastrointestinal hemorrhage type Procedures COLONOSCOPY DIAGNOSTIC COLONOSCOPY FLX DX W/COLLJ SPEC WHEN PFRMD Hortencia Gallardo MD [address] [place] [address] [facility] [address] [place] [address] Referral ID Status Reason Start Date Expiration Date V isits Requested Visits Authorized [id number] Closed Auto-Generate d Referral 08/07/2022 08/08/2023 1 1 [facility] for visit Narrative* Diagnostic Procedure Only (Routine) - Closed Specialty Diagnoses / Procedures Referred By Contac t Referred To Contact US IMAGING Diagnoses Leg edema Procedures US DVT LOWER BILATERAL DUP-SCAN XTR VEINS COMPLETE BILATERAL STUDY Halle Dale MD [address] [place] [address] Us Imaging Referral ID Status Reason Start Date Expiration Date V isits Requested Visits Authorized [id number] Closed Auto-Generate d Referral 10/16/2022 11/15/2023 1 1 [facility] Summary Purpose Family History No Family History Records FoundNo Family History Records FoundNo Family History Records FoundNo Family History Records FoundNo Family History Records Found No data available for this section No Family History Records FoundNo Family History Records FoundNo Family History Records FoundNo Family History Records FoundNo Family History Records Found No data available for this section No data available for this section No Family History Records Found No data available for this section No Family History Records FoundNo Family History Records Found Advance Directives No Advanced Directives Records FoundDocuments on File Type Date Recorded 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 Advance Directive(s) 06/02/2017 1:46 PM [...] Documents on File Type Date Recorded 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 Advance Directive(s) 05/01/2021 6:25 PM [...] Documents on File Type Date Recorded 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 Advance Directive(s) 05/01/2021 6:25 PM [...] Documents on File Type Date Recorded 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 Advance Directive(s) 06/02/2017 1:46 PM [...] CONSULT TO SLEEP MEDICINE - ADULT OFFICE/OUTPATIENT [facility] MDM 60-74 MINUTES Ulises Ramos DO [address] [place] [address] Referral ID Status Reason Start Date Expiration Date Visits Requested Visits Authorized [id number] Authorized PCP Requested Referral 10/25/2021 10/25/2022 1 1 Specialty Diagnoses / Procedures Referred By Contac t Referred To Contact Diagnoses Chronic diarrhea Ulises Ramos DO [address] [place] [address] Referral ID Status Reason Start Date Expiration Date V isits Requested Visits Authorized [id number] Pending Review 1 1 Specialty Diagnoses / Procedures Referred By Contac t Referred To Contact [facility] Diagnoses Muscular deconditioning Procedures CONSULT TO PHYSICAL THERAPY PHYSICAL THERAPY EVALUATION HIGH COMPLEX 45 MINS Ulises Ramos DO [address] [place] [address] [facility] [address] [address] Referral ID Status Reason Start Date Expiration Date Visits Requested Visits Authorized [id number] Authorized PCP Requested Referral Auto-Generate d Referral 02/20/2022 02/20/2023 99 99 Specialty Diagnoses / Procedures Referred By Contac [place] [address] [place], [place] [id number] Referral ID Status Reason Start Date Expiration Date V isits Requested Visits Authorized [id number] Pending Review 1 1 Specialty Diagnoses / Procedures Referred By Contac t Referred To Contact [facility] Diagnoses Physical deconditioning Procedures PT REHAB FOLLOW UP ORDER THERAPEUTIC EXERCISES RE, EA 15 MIN. Pt [facility] [address] [place] [address] [facility] [place] [address] Referral ID Status Reason Start Date Expiration Date Visits Requested Visits Authorized [id number] Pending Review PCP Requested Referral Auto-Generate d Referral 05/31/2022 08/29/2022 1 1 Specialty Diagnoses / Procedures Referred By Contac t Referred To Contact [facility] Diagnoses Chronic obstructive pulmonary disease with acute exacerbation (HCC) Procedures CONSULT TO PULM/CRITICAL CARE OFFICE/OUTPATIENT [facility] 60-74 MINUTES Ulises Ramos DO [address] [place] [address] Referral ID Status Reason Start Date Expiration Date Visits Requested Visits Authorized [id number] Authorized PCP Requested Referral 07/25/2022 07/25/2023 1 1 Specialty Diagnoses / Procedures Referred By Contac t Referred To Contact CT IMAGING Diagnoses Chronic cough Procedures CT CHEST W IVCON DIAGNOSTIC COMPUTED TOMOGRAPHY THORAX W/CONTRAST Ulises Ramos DO [address] [place] [address] Ct Imaging Referral ID Status Reason Start Date Expiration Date V isits Requested Visits Authorized [id number] Closed Auto-Generate d Referral 07/30/2022 08/29/2023 1 1 Specialty Diagnoses / Procedures Referred By Contac t Referred To Contact Diagnoses CIRA (obstructive sleep apnea) Ulises Ramos, [address] [place] [address] Referral ID Status Reason Start Date Expiration Date V isits Requested Visits Authorized [id number] Pending Review 1 1 Specialty Diagnoses / Procedures Referred By Contac t Referred To Contact Psychology Diagnoses Renal cancer, right (HCC) Essential thrombocythemia (HCC) Procedures CONSULT TO PSYCHOLOGY OFFICE/OUTPATIENT [facility] 60-74 MINUTES Halle Dale MD [address] [place] [address] Referral ID Status Reason Start Date Expiration Date Visits Requested Visits Authorized [id number] Pending Review PCP Requested Referral 11/24/2022 11/24/2023 1 1 Specialty Diagnoses / Procedures Referred By Contac t Referred To Contact CT IMAGING Diagnoses Renal cancer, right (HCC) Procedures CT CHEST WO IVCON DIAGNOSTIC COMPUTED TOMOGRAPHY THORAX W/O CNTRST Halle Dale MD [address] [place] [address] Ct Imaging Referral ID Status Reason Start Date Expiration Date Visits Requested Visits Authorized [id number] Pending Review Auto-Generat ed Referral 3 12/24/2023 1 1 Specialty Diagnoses / Procedures Referred By Contac t Referred To Contact [facility] Diagnoses Severe muscle deconditioning Procedures CONSULT TO PHYSICAL THERAPY PHYSICAL THERAPY EVALUATION HIGH COMPLEX 45 MINS Nakul Gallegos MD [address] [address] [facility] [place] [address] [place] [address] Referral ID Status Reason Start Date Expiration Date Visits Requested Visits Authorized [id number] Authorized PCP Requested Referral Auto-Generate d Referral 12/13/2022 12/13/2023 99 99 Specialty Diagnoses / Procedures Referred By Contac t Referred To Contact Urology Diagnoses Primary insomnia Procedures CONSULT TO UROLOGY OFFICE/OUTPATIENT [facility] MDM 60-74 MINUTES Deo Hyatt MD [address] [place] [address] Referral ID Status Reason Start Date Expiration Date Visits Requested Visits Authorized [id number] Authorized PCP Requested Referral 12/13/2022 12/13/2023 1 1 Specialty Diagnoses / Procedures Referred By Contac t Referred To Contact Diagnoses Essential thrombocythemia (HCC) Procedures CONSULT TO [facility] Halle Dale MD [address] [place] [address] [address] [place] [address] Referral ID Status Reason Start Date Expiration Date Visits Requested Visits Authorized [id number] Pending Review PCP Requested Referral 12/18/2022 03/18/2023 1 1 Specialty Diagnoses / Procedures Referred By Contac t Referred To Contact Diagnoses Atrial fibrillation, unspecified type (CMS/HCC) Procedures ECG 12 lead (Clinic Performed) Melinda Kraft MD [address] [place] [address] Referral ID Status Reason Start Date Expiration Date V isits Requested Visits Authorized [id number] Pending Review 02/20/2023 02/20/2024 1 1 Medications [...] over 15 Minutes, ONCE, 1 dose, On 03/13/22 at 1430, Please conduct a 30 minute post dose observation. New Bag/Syringe/Bottle 03/13/2022 2:24 PM EST 200 mg 400 mL/hr Inactive Administered Medications - up to 3 most recent administrations Medication Order MAR Action Action Date Dose Rate Site iron sucrose 200 mg in NaCl 0.9% 100ml (VENOFER) 200 mg, INTRAVENOUS, at 400 mL/hr, Administer over 15 Minutes, ONCE, 1 dose, On 03/18/22 at 1430, Please conduct a 30 minute [...] and content) DATE CREATED AUTHOR 10/01/[address] [facility] DATE CREATED AUTHOR AUTHOR'S ORGANIZ ATION 02/03/2021 [facility] DATE CREATED AUTHOR AUTHOR'S ORGANIZ ATION 02/04/2022 [facility] ical [facility] DATE CREATED AUTHOR AUTHOR'S ORGANIZ ATION 01/23/2023 [facility] nter DATE CREATED AUTHOR AUTHOR'S ORGANIZ ATION 02/22/2023 [facility] t[facility] Ambulatory DATE CREATED AUTHOR AUTHOR'S ORGANIZ ATION 05/06/2023 [facility] DATE CREATED AUTHOR AUTHOR'S ORGANIZ ATION 05/10/2023 [facility] ([place]) DATE CREATED AUTHOR AUTHOR'S ORGANIZ ATION 08/27/2023 [facility] DATE CREATED AUTHOR AUTHOR'S ORGANIZ ATION 12/07/2023 [facility] DATE CREATED AUTHOR AUTHOR'S ORGANIZ ATION 02/13/2024 [facility] dical Center DATE CREATED AUTHOR AUTHOR'S ORGANIZ ATION 05/05/2024 [facility] DATE CREATED AUTHOR AUTHOR'S ORGANIZ ATION 06/04/2024 [facility] DATE CREATED AUTHOR AUTHOR'S ORGANIZ ATION 10/13/2024 [facility] Source Comments (unrecognize d section and content) In the event this informatio n is protected by the Federal Confidentiality of Alcohol and Drug Abuse Patient Records regulations: The Federal rules restrict any use of the information to criminally investigate or prosecute any alcohol or drug abuse patient.[facility] the event this information is protected by the Federal Confidentiality of Alcohol and Drug Abuse Patient Records regulations: The Federal rules restrict any use of the information to criminally investigate or prosecute any alcohol or drug abuse patient.[facility] the event this information is protected by the Federal Confidentiality of Alcohol and Drug Abuse Patient Records regulations: The Federal rules restrict any use of the information to criminally investigate or prosecute any alcohol or drug abuse patient.[facility] the event this information is protected by the Federal Confidentiality of Alcohol and Drug Abuse Patient Records regulations: The Federal rules restrict any use of the information to criminally investigate or prosecute any alcohol or drug abuse patient.[facility] the event this information is protected by the Federal Confidentiality of Alcohol and Drug Abuse Patient Records regulations: The Federal rules restrict any use of the information to criminally investigate or prosecute any alcohol or drug abuse patient.[facility] the event this information is protected by the Federal Confidentiality of Alcohol and Drug Abuse Patient Records regulations: The Federal rules restrict any use of the information to criminally investigate or prosecute any alcohol or drug abuse patient.[facility] the event this information is protected by the Federal Confidentiality of Alcohol and Drug Abuse Patient Records regulations: The Federal rules restrict any use of the information to criminally investigate or prosecute any alcohol or drug abuse patient.[facility] the event this information is protected by the Federal Confidentiality of Alcohol and Drug Abuse Patient Records regulations: The Federal rules restrict any use of the information to criminally investigate or prosecute any alcohol or drug abuse patient.[facility] the event this information is protected by the Federal Confidentiality of Alcohol and Drug Abuse Patient Records regulations: The Federal rules restrict any use of the information to criminally investigate or prosecute any alcohol or drug abuse patient.[facility] the event this information is protected by the Federal Confidentiality of Alcohol and Drug Abuse Patient Records regulations: The Federal rules restrict any use of the information to criminally investigate or prosecute any alcohol or drug abuse patient.[facility] the event this information is protected by the Federal Confidentiality of Alcohol and Drug Abuse Patient Records regulations: The Federal rules restrict any use of the information to criminally investigate or prosecute any alcohol or drug abuse patient.[facility] the event this information is protected by the Federal Confidentiality of Alcohol and Drug Abuse Patient Records regulations: The Federal rules restrict any use of the information to criminally investigate or prosecute any alcohol or drug abuse patient.[facility] the event this information is protected by the Federal Confidentiality of Alcohol and Drug Abuse Patient Records regulations: The Federal rules restrict any use of the information to criminally investigate or prosecute any alcohol or drug abuse patient.[facility] the event this information is protected by the Federal Confidentiality of Alcohol and Drug Abuse Patient Records regulations: The Federal rules restrict any use of the information to criminally investigate or prosecute any alcohol or drug abuse patient.[facility] the event this information is protected by the Federal Confidentiality of Alcohol and Drug Abuse Patient Records regulations: The Federal rules restrict any use of the information to criminally investigate or prosecute any alcohol or drug abuse patient.[facility] Hospital[facility] the event this information is protected by the Federal Confidentiality of Alcohol and Drug Abuse Patient Records regulations: The Federal rules restrict any use of the information to criminally investigate or prosecute any alcohol or drug abuse patient.[facility] the event this information is protected by the Federal Confidentiality of Alcohol and Drug Abuse Patient Records regulations: The Federal rules restrict any use of the information to criminally investigate or prosecute any alcohol or drug abuse patient.[facility] the event this information is protected by the Federal Confidentiality of Alcohol and Drug Abuse Patient Records regulations: The Federal rules restrict any use of the information to criminally investigate or prosecute any alcohol or drug abuse patient.[facility] Hospital[facility] the event this information is protected by the Federal Confidentiality of Alcohol and Drug Abuse Patient Records regulations: The Federal rules restrict any use of the information to criminally investigate or prosecute any alcohol or drug abuse patient.[facility] Hospital[facility] the event this information is protected by the Federal Confidentiality of Alcohol and Drug Abuse Patient Records regulations: The Federal rules restrict any use of the information to criminally investigate or prosecute any alcohol or drug abuse patient.[facility] Hospital[facility] the event this information is protected by the Federal Confidentiality of Alcohol and Drug Abuse Patient Records regulations: The Federal rules restrict any use of the information to criminally investigate or prosecute any alcohol or drug abuse patient.[facility] Hospital[facility] the event this information is protected by the Federal Confidentiality of Alcohol and Drug Abuse Patient Records regulations: The Federal rules restrict any use of the information to criminally investigate or prosecute any alcohol or drug abuse patient.[facility] Hospital[facility] the event this information is protected by the Federal Confidentiality of Alcohol and Drug Abuse Patient Records regulations: The Federal rules restrict any use of the information to criminally investigate or prosecute any alcohol or drug abuse patient.[facility] Hospital[facility] the event this information is protected by the Federal Confidentiality of Alcohol and Drug Abuse Patient Records regulations: The Federal rules restrict any use of the information to criminally investigate or prosecute any alcohol or drug abuse patient.[facility] Hospital[facility] the event this information is protected by the Federal Confidentiality of Alcohol and Drug Abuse Patient Records regulations: The Federal rules restrict any use of the information to criminally investigate or prosecute any alcohol or drug abuse patient.[facility] Hospital[facility] the event this information is protected by the Federal Confidentiality of Alcohol and Drug Abuse Patient Records regulations: The Federal rules restrict any use of the information to criminally investigate or prosecute any alcohol or drug abuse patient.[facility] Hospital[facility] the event this information is protected by the Federal Confidentiality of Alcohol and Drug Abuse Patient Records regulations: The Federal rules restrict any use of the information to criminally investigate or prosecute any alcohol or drug abuse patient.[facility] the event this information is protected by the Federal Confidentiality of Alcohol and Drug Abuse Patient Records regulations: The Federal rules restrict any use of the information to criminally investigate or prosecute any alcohol or drug abuse patient.[facility] HospitalIn the event this information is protected by the Federal Confidentiality of Alcohol and Drug Abuse Patient Records regulations: The Federal rules restrict any use of the information to criminally investigate or prosecute any alcohol or drug abuse patient.[facility]In the event this information is protected by the Federal Confidentiality of Alcohol and Drug Abuse Patient Records regulations: The Federal rules restrict any use of the information to criminally investigate or prosecute any alcohol or drug abuse patient.[facility] HospitalIn the event this information is protected by the Federal Confidentiality of Alcohol and Drug Abuse Patient Records regulations: The Federal rules restrict any use of the information to criminally investigate or prosecute any alcohol or drug abuse patient.[facility] HospitalIn the event this information is protected by the Federal Confidentiality of Alcohol and Drug Abuse Patient Records regulations: The Federal rules restrict any use of the information to criminally investigate or prosecute any alcohol or drug abuse patient.[facility] HospitalIn the event this information is protected by the Federal Confidentiality of Alcohol and Drug Abuse Patient Records regulations: The Federal rules restrict any use of the information to criminally investigate or prosecute any alcohol or drug abuse patient.[facility] HospitalIn the event this information is protected by the Federal Confidentiality of Alcohol and Drug Abuse Patient Records regulations: The Federal rules restrict any use of the information to criminally investigate or prosecute any alcohol or drug abuse patient.[facility] HospitalIn the event this information is protected by the Federal Confidentiality of Alcohol and Drug Abuse Patient Records regulations: The Federal rules restrict any use of the information to criminally investigate or prosecute any alcohol or drug abuse patient.[facility] HospitalIn the event this information is protected by the Federal Confidentiality of Alcohol and Drug Abuse Patient Records regulations: The Federal rules restrict any use of the information to criminally investigate or prosecute any alcohol or drug abuse patient.[facility] HospitalIn the event this information is protected by the Federal Confidentiality of Alcohol and Drug Abuse Patient Records regulations: The Federal rules restrict any use of the information to criminally investigate or prosecute any alcohol or drug abuse patient.[facility] HospitalIn the event this information is protected by the Federal Confidentiality of Alcohol and Drug Abuse Patient Records regulations: The Federal rules restrict any use of the information to criminally investigate or prosecute any alcohol or drug abuse patient.[facility] HospitalIn the event this information is protected by the Federal Confidentiality of Alcohol and Drug Abuse Patient Records regulations: The Federal rules restrict any use of the information to criminally investigate or prosecute any alcohol or drug abuse patient.[facility] HospitalIn the event this information is protected by the Federal Confidentiality of Alcohol and Drug Abuse Patient Records regulations: The Federal rules restrict any use of the information to criminally investigate or prosecute any alcohol or drug abuse patient.[facility] HospitalIn the event this information is protected by the Federal Confidentiality of Alcohol and Drug Abuse Patient Records regulations: The Federal rules restrict any use of the information to criminally investigate or prosecute any alcohol or drug abuse patient.[facility] HospitalIn the event this information is protected by the Federal Confidentiality of Alcohol and Drug Abuse Patient Records regulations: The Federal rules restrict any use of the information to criminally investigate or prosecute any alcohol or drug abuse patient.[facility] HospitalIn the event this information is protected by the Federal Confidentiality of Alcohol and Drug Abuse Patient Records regulations: The Federal rules restrict any use of the information to criminally investigate or prosecute any alcohol or drug abuse patient.[facility] HospitalIn the event this information is protected by the Federal Confidentiality of Alcohol and Drug Abuse Patient Records regulations: The Federal rules restrict any use of the information to criminally investigate or prosecute any alcohol or drug abuse patient.[facility] HospitalIn the event this information is protected by the Federal Confidentiality of Alcohol and Drug Abuse Patient Records regulations: The Federal rules restrict any use of the information to criminally investigate or prosecute any alcohol or drug abuse patient.[facility] HospitalIn the event this information is protected by the Federal Confidentiality of Alcohol and Drug Abuse Patient Records regulations: The Federal rules restrict any use of the information to criminally investigate or prosecute any alcohol or drug abuse patient.[facility] HospitalIn the event this information is protected by the Federal Confidentiality of Alcohol and Drug Abuse Patient Records regulations: The Federal rules restrict any use of the information to criminally investigate or prosecute any alcohol or drug abuse patient.[facility] HospitalIn the event this information is protected by the Federal Confidentiality of Alcohol and Drug Abuse Patient Records regulations: The Federal rules restrict any use of the information to criminally investigate or prosecute any alcohol or drug abuse patient.[facility] HospitalIn the event this information is protected by the Federal Confidentiality of Alcohol and Drug Abuse Patient Records regulations: The Federal rules restrict any use of the information to criminally investigate or prosecute any alcohol or drug abuse patient.[facility] HospitalIn the event this information is protected by the Federal Confidentiality of Alcohol and Drug Abuse Patient Records regulations: The Federal rules restrict any use of the information to criminally investigate or prosecute any alcohol or drug abuse patient.[facility] HospitalIn the event this information is protected by the Federal Confidentiality of Alcohol and Drug Abuse Patient Records regulations: The Federal rules restrict any use of the information to criminally investigate or prosecute any alcohol or drug abuse patient.[facility] HospitalIn the event this information is protected by the Federal Confidentiality of Alcohol and Drug Abuse Patient Records regulations: The Federal rules restrict any use of the information to criminally investigate or prosecute any alcohol or drug abuse patient.[facility] HospitalIn the event this information is protected by the Federal Confidentiality of Alcohol and Drug Abuse Patient Records regulations: The Federal rules restrict any use of the information to criminally investigate or prosecute any alcohol or drug abuse patient.[facility] HospitalIn the event this information is protected by the Federal Confidentiality of Alcohol and Drug Abuse Patient Records regulations: The Federal rules restrict any use of the information to criminally investigate or prosecute any alcohol or drug abuse patient.[facility] HospitalIn the event this information is protected by the Federal Confidentiality of Alcohol and Drug Abuse Patient Records regulations: The Federal rules restrict any use of the information to criminally investigate or prosecute any alcohol or drug abuse patient.[facility] HospitalIn the event this information is protected by the Federal Confidentiality of Alcohol and Drug Abuse Patient Records regulations: The Federal rules restrict any use of the information to criminally investigate or prosecute any alcohol or drug abuse patient.[facility] HospitalIn the event this information is protected by the Federal Confidentiality of Alcohol and Drug Abuse Patient Records regulations: The Federal rules restrict any use of the information to criminally investigate or prosecute any alcohol or drug abuse patient.[facility] HospitalIn the event this information is protected by the Federal Confidentiality of Alcohol and Drug Abuse Patient Records regulations: The Federal rules restrict any use of the information to criminally investigate or prosecute any alcohol or drug abuse patient.[facility] HospitalIn the event this information is protected by the Federal Confidentiality of Alcohol and Drug Abuse Patient Records regulations: The Federal rules restrict any use of the information to criminally investigate or prosecute any alcohol or drug abuse patient.[facility] HospitalIn the event this information is protected by the Federal Confidentiality of Alcohol and Drug Abuse Patient Records regulations: The Federal rules restrict any use of the information to criminally investigate or prosecute any alcohol or drug abuse patient.[facility] HospitalIn the event this information is protected by the Federal Confidentiality of Alcohol and Drug Abuse Patient Records regulations: The Federal rules restrict any use of the information to criminally investigate or prosecute any alcohol or drug abuse patient.[facility] HospitalIn the event this information is protected by the Federal Confidentiality of Alcohol and Drug Abuse Patient Records regulations: The Federal rules restrict any use of the information to criminally investigate or prosecute any alcohol or drug abuse patient.[facility] HospitalIn the event this information is protected by the Federal Confidentiality of Alcohol and Drug Abuse Patient Records regulations: The Federal rules restrict any use of the information to criminally investigate or prosecute any alcohol or drug abuse patient.[facility] HospitalIn the event this information is protected by the Federal Confidentiality of Alcohol and Drug Abuse Patient Records regulations: The Federal rules restrict any use of the information to criminally investigate or prosecute any alcohol or drug abuse patient.[facility] HospitalIn the event this information is protected by the Federal Confidentiality of Alcohol and Drug Abuse Patient Records regulations: The Federal rules restrict any use of the information to criminally investigate or prosecute any alcohol or drug abuse patient.[facility] HospitalIn the event this information is protected by the Federal Confidentiality of Alcohol and Drug Abuse Patient Records regulations: The Federal rules restrict any use of the information to criminally investigate or prosecute any alcohol or drug abuse patient.[facility] the event this information is protected by the Federal Confidentiality of Alcohol and Drug Abuse Patient Records regulations: The Federal rules restrict any use of the information to criminally investigate or prosecute any alcohol or drug abuse patient.[facility] HospitalIn the event this information is protected by the Federal Confidentiality of Alcohol and Drug Abuse Patient Records regulations: The Federal rules restrict any use of the information to criminally investigate or prosecute any alcohol or drug abuse patient.[facility] HospitalIn the event this information is protected by the Federal Confidentiality of Alcohol and Drug Abuse Patient Records regulations: The Federal rules restrict any use of the information to criminally investigate or prosecute any alcohol or drug abuse patient.[facility] HospitalIn the event this information is protected by the Federal Confidentiality of Alcohol and Drug Abuse Patient Records regulations: The Federal rules restrict any use of the information to criminally investigate or prosecute any alcohol or drug abuse patient.[facility] HospitalIn the event this information is protected by the Federal Confidentiality of Alcohol and Drug Abuse Patient Records regulations: The Federal rules restrict any use of the information to criminally investigate or prosecute any alcohol or drug abuse patient.[facility] HospitalIn the event this information is protected by the Federal Confidentiality of Alcohol and Drug Abuse Patient Records regulations: The Federal rules restrict any use of the information to criminally investigate or prosecute any alcohol or drug abuse patient.[facility] HospitalIn the event this information is protected by the Federal Confidentiality of Alcohol and Drug Abuse Patient Records regulations: The Federal rules restrict any use of the information to criminally investigate or prosecute any alcohol or drug abuse patient.[facility] HospitalIn the event this information is protected by the Federal Confidentiality of Alcohol and Drug Abuse Patient Records regulations: The Federal rules restrict any use of the information to criminally investigate or prosecute any alcohol or drug abuse patient.[facility] HospitalIn the event this information is protected by the Federal Confidentiality of Alcohol and Drug Abuse Patient Records regulations: The Federal rules restrict any use of the information to criminally investigate or prosecute any alcohol or drug abuse patient.[facility] HospitalIn the event this information is protected by the Federal Confidentiality of Alcohol and Drug Abuse Patient Records regulations: The Federal rules restrict any use of the information to criminally investigate or prosecute any alcohol or drug abuse patient.[facility] HospitalIn the event this information is protected by the Federal Confidentiality of Alcohol and Drug Abuse Patient Records regulations: The Federal rules restrict any use of the information to criminally investigate or prosecute any alcohol or drug abuse patient.[facility] HospitalIn the event this information is protected by the Federal Confidentiality of Alcohol and Drug Abuse Patient Records regulations: The Federal rules restrict any use of the information to criminally investigate or prosecute any alcohol or drug abuse patient.[facility] HospitalIn the event this information is protected by the Federal Confidentiality of Alcohol and Drug Abuse Patient Records regulations: The Federal rules restrict any use of the information to criminally investigate or prosecute any alcohol or drug abuse patient.[facility] HospitalIn the event this information is protected by the Federal Confidentiality of Alcohol and Drug Abuse Patient Records regulations: The Federal rules restrict any use of the information to criminally investigate or prosecute any alcohol or drug abuse patient.[facility] HospitalIn the event this information is protected by the Federal Confidentiality of Alcohol and Drug Abuse Patient Records regulations: The Federal rules restrict any use of the information to criminally investigate or prosecute any alcohol or drug abuse patient.[facility] HospitalIn the event this information is protected by the Federal Confidentiality of Alcohol and Drug Abuse Patient Records regulations: The Federal rules restrict any use of the information to criminally investigate or prosecute any alcohol or drug abuse patient.[facility] HospitalIn the event this information is protected by the Federal Confidentiality of Alcohol and Drug Abuse Patient Records regulations: The Federal rules restrict any use of the information to criminally investigate or prosecute any alcohol or drug abuse patient.[facility] HospitalIn the event this information is protected by the Federal Confidentiality of Alcohol and Drug Abuse Patient Records regulations: The Federal rules restrict any use of the information to criminally investigate or prosecute any alcohol or drug abuse patient.[facility] HospitalIn the event this information is protected by the Federal Confidentiality of Alcohol and Drug Abuse Patient Records regulations: The Federal rules restrict any use of the information to criminally investigate or prosecute any alcohol or drug abuse patient.[facility] HospitalIn the event this information is protected by the Federal Confidentiality of Alcohol and Drug Abuse Patient Records regulations: The Federal rules restrict any use of the information to criminally investigate or prosecute any alcohol or drug abuse patient.[facility] HospitalIn the event this information is protected by the Federal Confidentiality of Alcohol and Drug Abuse Patient Records regulations: The Federal rules restrict any use of the information to criminally investigate or prosecute any alcohol or drug abuse patient.[facility] HospitalIn the event this information is protected by the Federal Confidentiality of Alcohol and Drug Abuse Patient Records regulations: The Federal rules restrict any use of the information to criminally investigate or prosecute any alcohol or drug abuse patient.[facility] HospitalIn the event this information is protected by the Federal Confidentiality of Alcohol and Drug Abuse Patient Records regulations: The Federal rules restrict any use of the information to criminally investigate or prosecute any alcohol or drug abuse patient.[facility] HospitalIn the event this information is protected by the Federal Confidentiality of Alcohol and Drug Abuse Patient Records regulations: The Federal rules restrict any use of the information to criminally investigate or prosecute any alcohol or drug abuse patient.[facility] HospitalIn the event this information is protected by the Federal Confidentiality of Alcohol and Drug Abuse Patient Records regulations: The Federal rules restrict any use of the information to criminally investigate or prosecute any alcohol or drug abuse patient.[facility] HospitalIn the event this information is protected by the Federal Confidentiality of Alcohol and Drug Abuse Patient Records regulations: The Federal rules restrict any use of the information to criminally investigate or prosecute any alcohol or drug abuse patient.[facility] HospitalIn the event this information is protected by the Federal Confidentiality of Alcohol and Drug Abuse Patient Records regulations: The Federal rules restrict any use of the information to criminally investigate or prosecute any alcohol or drug abuse patient.[facility] HospitalIn the event this information is protected by the Federal Confidentiality of Alcohol and Drug Abuse Patient Records regulations: The Federal rules restrict any use of the information to criminally investigate or prosecute any alcohol or drug abuse patient.[facility] HospitalIn the event this information is protected by the Federal Confidentiality of Alcohol and Drug Abuse Patient Records regulations: The Federal rules restrict any use of the information to criminally investigate or prosecute any alcohol or drug abuse patient.[facility] HospitalIn the event this information is protected by the Federal Confidentiality of Alcohol and Drug Abuse Patient Records regulations: The Federal rules restrict any use of the information to criminally investigate or prosecute any alcohol or drug abuse patient.[facility] HospitalIn the event this information is protected by the Federal Confidentiality of Alcohol and Drug Abuse Patient Records regulations: The Federal rules restrict any use of the information to criminally investigate or prosecute any alcohol or drug abuse patient.[facility] HospitalIn the event this information is protected by the Federal Confidentiality of Alcohol and Drug Abuse Patient Records regulations: The Federal rules restrict any use of the information to criminally investigate or prosecute any alcohol or drug abuse patient.[facility] HospitalIn the event this information is protected by the Federal Confidentiality of Alcohol and Drug Abuse Patient Records regulations: The Federal rules restrict any use of the information to criminally investigate or prosecute any alcohol or drug abuse patient.[facility] HospitalIn the event this information is protected by the Federal Confidentiality of Alcohol and Drug Abuse Patient Records regulations: The Federal rules restrict any use of the information to criminally investigate or prosecute any alcohol or drug abuse patient.[facility] HospitalIn the event this information is protected by the Federal Confidentiality of Alcohol and Drug Abuse Patient Records regulations: The Federal rules restrict any use of the information to criminally investigate or prosecute any alcohol or drug abuse patient.[facility] HospitalIn the event this information is protected by the Federal Confidentiality of Alcohol and Drug Abuse Patient Records regulations: The Federal rules restrict any use of the information to criminally investigate or prosecute any alcohol or drug abuse patient.[facility] HospitalIn the event this information is protected by the Federal Confidentiality of Alcohol and Drug Abuse Patient Records regulations: The Federal rules restrict any use of the information to criminally investigate or prosecute any alcohol or drug abuse patient.[facility] HospitalIn the event this information is protected by the Federal Confidentiality of Alcohol and Drug Abuse Patient Records regulations: The Federal rules restrict any use of the information to criminally investigate or prosecute any alcohol or drug abuse patient.[facility] HospitalIn the event this information is protected by the Federal Confidentiality of Alcohol and Drug Abuse Patient Records regulations: The Federal rules restrict any use of the information to criminally investigate or prosecute any alcohol or drug abuse patient.[facility] HospitalIn the event this information is protected by the Federal Confidentiality of Alcohol and Drug Abuse Patient Records regulations: The Federal rules restrict any use of the information to criminally investigate or prosecute any alcohol or drug abuse patient.[facility] HospitalIn the event this information is protected by the Federal Confidentiality of Alcohol and Drug Abuse Patient Records regulations: The Federal rules restrict any use of the information to criminally investigate or prosecute any alcohol or drug abuse patient.[facility] HospitalIn the event this information is protected by the Federal Confidentiality of Alcohol and Drug Abuse Patient Records regulations: The Federal rules restrict any use of the information to criminally investigate or prosecute any alcohol or drug abuse patient.[facility] HospitalIn the event this information is protected by the Federal Confidentiality of Alcohol and Drug Abuse Patient Records regulations: The Federal rules restrict any use of the information to criminally investigate or prosecute any alcohol or drug abuse patient.[facility] HospitalIn the event this information is protected by the Federal Confidentiality of Alcohol and Drug Abuse Patient Records regulations: The Federal rules restrict any use of the information to criminally investigate or prosecute any alcohol or drug abuse patient.[facility] HospitalIn the event this information is protected by the Federal Confidentiality of Alcohol and Drug Abuse Patient Records regulations: The Federal rules restrict any use of the information to criminally investigate or prosecute any alcohol or drug abuse patient.[facility] HospitalIn the event this information is protected by the Federal Confidentiality of Alcohol and Drug Abuse Patient Records regulations: The Federal rules restrict any use of the information to criminally investigate or prosecute any alcohol or drug abuse patient.[facility] HospitalIn the event this information is protected by the Federal Confidentiality of Alcohol and Drug Abuse Patient Records regulations: The Federal rules restrict any use of the information to criminally investigate or prosecute any alcohol or drug abuse patient.[facility] HospitalIn the event this information is protected by the Federal Confidentiality of Alcohol and Drug Abuse Patient Records regulations: The Federal rules restrict any use of the information to criminally investigate or prosecute any alcohol or drug abuse patient.[facility] HospitalIn the event this information is protected by the Federal Confidentiality of Alcohol and Drug Abuse Patient Records regulations: The Federal rules restrict any use of the information to criminally investigate or prosecute any alcohol or drug abuse patient.[facility] HospitalIn the event this information is protected by the Federal Confidentiality of Alcohol and Drug Abuse Patient Records regulations: The Federal rules restrict any use of the information to criminally investigate or prosecute any alcohol or drug abuse patient.[facility] the event this information is protected by the Federal Confidentiality of Alcohol and Drug Abuse Patient Records regulations: The Federal rules restrict any use of the information to criminally investigate or prosecute any alcohol or drug abuse patient.[facility] HospitalIn the event this information is protected by the Federal Confidentiality of Alcohol and Drug Abuse Patient Records regulations: The Federal rules restrict any use of the information to criminally investigate or prosecute any alcohol or drug abuse patient.[facility] HospitalIn the event this information is protected by the Federal Confidentiality of Alcohol and Drug Abuse Patient Records regulations: The Federal rules restrict any use of the information to criminally investigate or prosecute any alcohol or drug abuse patient.[facility] HospitalIn the event this information is protected by the Federal Confidentiality of Alcohol and Drug Abuse Patient Records regulations: The Federal rules restrict any use of the information to criminally investigate or prosecute any alcohol or drug abuse patient.[facility] HospitalIn the event this information is protected by the Federal Confidentiality of Alcohol and Drug Abuse Patient Records regulations: The Federal rules restrict any use of the information to criminally investigate or prosecute any alcohol or drug abuse patient.[facility] HospitalIn the event this information is protected by the Federal Confidentiality of Alcohol and Drug Abuse Patient Records regulations: The Federal rules restrict any use of the information to criminally investigate or prosecute any alcohol or drug abuse patient.[facility] HospitalIn the event this information is protected by the Federal Confidentiality of Alcohol and Drug Abuse Patient Records regulations: The Federal rules restrict any use of the information to criminally investigate or prosecute any alcohol or drug abuse patient.[facility] HospitalIn the event this information is protected by the Federal Confidentiality of Alcohol and Drug Abuse Patient Records regulations: The Federal rules restrict any use of the information to criminally investigate or prosecute any alcohol or drug abuse patient.[facility] HospitalIn the event this information is protected by the Federal Confidentiality of Alcohol and Drug Abuse Patient Records regulations: The Federal rules restrict any use of the information to criminally investigate or prosecute any alcohol or drug abuse patient.[facility] HospitalIn the event this information is protected by the Federal Confidentiality of Alcohol and Drug Abuse Patient Records regulations: The Federal rules restrict any use of the information to criminally investigate or prosecute any alcohol or drug abuse patient.[facility] HospitalIn the event this information is protected by the Federal Confidentiality of Alcohol and Drug Abuse Patient Records regulations: The Federal rules restrict any use of the information to criminally investigate or prosecute any alcohol or drug abuse patient.[facility] HospitalIn the event this information is protected by the Federal Confidentiality of Alcohol and Drug Abuse Patient Records regulations: The Federal rules restrict any use of the information to criminally investigate or prosecute any alcohol or drug abuse patient.[facility] HospitalIn the event this information is protected by the Federal Confidentiality of Alcohol and Drug Abuse Patient Records regulations: The Federal rules restrict any use of the information to criminally investigate or prosecute any alcohol or drug abuse patient.[facility] HospitalIn the event this information is protected by the Federal Confidentiality of Alcohol and Drug Abuse Patient Records regulations: The Federal rules restrict any use of the information to criminally investigate or prosecute any alcohol or drug abuse patient.[facility] HospitalIn the event this information is protected by the Federal Confidentiality of Alcohol and Drug Abuse Patient Records regulations: The Federal rules restrict any use of the information to criminally investigate or prosecute any alcohol or drug abuse patient.[facility] HospitalIn the event this information is protected by the Federal Confidentiality of Alcohol and Drug Abuse Patient Records regulations: The Federal rules restrict any use of the information to criminally investigate or prosecute any alcohol or drug abuse patient.[facility] HospitalIn the event this information is protected by the Federal Confidentiality of Alcohol and Drug Abuse Patient Records regulations: The Federal rules restrict any use of the information to criminally investigate or prosecute any alcohol or drug abuse patient.[facility] HospitalIn the event this information is protected by the Federal Confidentiality of Alcohol and Drug Abuse Patient Records regulations: The Federal rules restrict any use of the information to criminally investigate or prosecute any alcohol or drug abuse patient.[facility] HospitalIn the event this information is protected by the Federal Confidentiality of Alcohol and Drug Abuse Patient Records regulations: The Federal rules restrict any use of the information to criminally investigate or prosecute any alcohol or drug abuse patient.[facility] HospitalIn the event this information is protected by the Federal Confidentiality of Alcohol and Drug Abuse Patient Records regulations: The Federal rules restrict any use of the information to criminally investigate or prosecute any alcohol or drug abuse patient.[facility] HospitalIn the event this information is protected by the Federal Confidentiality of Alcohol and Drug Abuse Patient Records regulations: The Federal rules restrict any use of the information to criminally investigate or prosecute any alcohol or drug abuse patient.[facility] HospitalIn the event this information is protected by the Federal Confidentiality of Alcohol and Drug Abuse Patient Records regulations: The Federal rules restrict any use of the information to criminally investigate or prosecute any alcohol or drug abuse patient.[facility] HospitalIn the event this information is protected by the Federal Confidentiality of Alcohol and Drug Abuse Patient Records regulations: The Federal rules restrict any use of the information to criminally investigate or prosecute any alcohol or drug abuse patient.[facility] HospitalIn the event this information is protected by the Federal Confidentiality of Alcohol and Drug Abuse Patient Records regulations: The Federal rules restrict any use of the information to criminally investigate or prosecute any alcohol or drug abuse patient.[facility] HospitalIn the event this information is protected by the Federal Confidentiality of Alcohol and Drug Abuse Patient Records regulations: The Federal rules restrict any use of the information to criminally investigate or prosecute any alcohol or drug abuse patient.[facility] HospitalIn the event this information is protected by the Federal Confidentiality of Alcohol and Drug Abuse Patient Records regulations: The Federal rules restrict any use of the information to criminally investigate or prosecute any alcohol or drug abuse patient.[facility] HospitalIn the event this information is protected by the Federal Confidentiality of Alcohol and Drug Abuse Patient Records regulations: The Federal rules restrict any use of the information to criminally investigate or prosecute any alcohol or drug abuse patient.[facility] HospitalIn the event this information is protected by the Federal Confidentiality of Alcohol and Drug Abuse Patient Records regulations: The Federal rules restrict any use of the information to criminally investigate or prosecute any alcohol or drug abuse patient.[facility] HospitalIn the event this information is protected by the Federal Confidentiality of Alcohol and Drug Abuse Patient Records regulations: The Federal rules restrict any use of the information to criminally investigate or prosecute any alcohol or drug abuse patient.[facility] HospitalIn the event this information is protected by the Federal Confidentiality of Alcohol and Drug Abuse Patient Records regulations: The Federal rules restrict any use of the information to criminally investigate or prosecute any alcohol or drug abuse patient.[facility] HospitalIn the event this information is protected by the Federal Confidentiality of Alcohol and Drug Abuse Patient Records regulations: The Federal rules restrict any use of the information to criminally investigate or prosecute any alcohol or drug abuse patient.[facility] HospitalIn the event this information is protected by the Federal Confidentiality of Alcohol and Drug Abuse Patient Records regulations: The Federal rules restrict any use of the information to criminally investigate or prosecute any alcohol or drug abuse patient.[facility] HospitalIn the event this information is protected by the Federal Confidentiality of Alcohol and Drug Abuse Patient Records regulations: The Federal rules restrict any use of the information to criminally investigate or prosecute any alcohol or drug abuse patient.[facility] HospitalIn the event this information is protected by the Federal Confidentiality of Alcohol and Drug Abuse Patient Records regulations: The Federal rules restrict any use of the information to criminally investigate or prosecute any alcohol or drug abuse patient.[facility] HospitalIn the event this information is protected by the Federal Confidentiality of Alcohol and Drug Abuse Patient Records regulations: The Federal rules restrict any use of the information to criminally investigate or prosecute any alcohol or drug abuse patient.[facility] HospitalIn the event this information is protected by the Federal Confidentiality of Alcohol and Drug Abuse Patient Records regulations: The Federal rules restrict any use of the information to criminally investigate or prosecute any alcohol or drug abuse patient.[facility] HospitalIn the event this information is protected by the Federal Confidentiality of Alcohol and Drug Abuse Patient Records regulations: The Federal rules restrict any use of the information to criminally investigate or prosecute any alcohol or drug abuse patient.[facility] HospitalIn the event this information is protected by the Federal Confidentiality of Alcohol and Drug Abuse Patient Records regulations: The Federal rules restrict any use of the information to criminally investigate or prosecute any alcohol or drug abuse patient.[facility] HospitalIn the event this information is protected by the Federal Confidentiality of Alcohol and Drug Abuse Patient Records regulations: The Federal rules restrict any use of the information to criminally investigate or prosecute any alcohol or drug abuse patient.[facility] HospitalIn the event this information is protected by the Federal Confidentiality of Alcohol and Drug Abuse Patient Records regulations: The Federal rules restrict any use of the information to criminally investigate or prosecute any alcohol or drug abuse patient.[facility] HospitalIn the event this information is protected by the Federal Confidentiality of Alcohol and Drug Abuse Patient Records regulations: The Federal rules restrict any use of the information to criminally investigate or prosecute any alcohol or drug abuse patient.[facility] HospitalIn the event this information is protected by the Federal Confidentiality of Alcohol and Drug Abuse Patient Records regulations: The Federal rules restrict any use of the information to criminally investigate or prosecute any alcohol or drug abuse patient.[facility] HospitalIn the event this information is protected by the Federal Confidentiality of Alcohol and Drug Abuse Patient Records regulations: The Federal rules restrict any use of the information to criminally investigate or prosecute any alcohol or drug abuse patient.[facility] HospitalIn the event this information is protected by the Federal Confidentiality of Alcohol and Drug Abuse Patient Records regulations: The Federal rules restrict any use of the information to criminally investigate or prosecute any alcohol or drug abuse patient.[facility] HospitalIn the event this information is protected by the Federal Confidentiality of Alcohol and Drug Abuse Patient Records regulations: The Federal rules restrict any use of the information to criminally investigate or prosecute any alcohol or drug abuse patient.[facility] HospitalIn the event this information is protected by the Federal Confidentiality of Alcohol and Drug Abuse Patient Records regulations: The Federal rules restrict any use of the information to criminally investigate or prosecute any alcohol or drug abuse patient.[facility] HospitalIn the event this information is protected by the Federal Confidentiality of Alcohol and Drug Abuse Patient Records regulations: The Federal rules restrict any use of the information to criminally investigate or prosecute any alcohol or drug abuse patient.[facility] HospitalIn the event this information is protected by the Federal Confidentiality of Alcohol and Drug Abuse Patient Records regulations: The Federal rules restrict any use of the information to criminally investigate or prosecute any alcohol or drug abuse patient.[facility] HospitalIn the event this information is protected by the Federal Confidentiality of Alcohol and Drug Abuse Patient Records regulations: The Federal rules restrict any use of the information to criminally investigate or prosecute any alcohol or drug abuse patient.[facility] HospitalIn the event this information is protected by the Federal Confidentiality of Alcohol and Drug Abuse Patient Records regulations: The Federal rules restrict any use of the information to criminally investigate or prosecute any alcohol or drug abuse patient.[facility] the event this information is protected by the Federal Confidentiality of Alcohol and Drug Abuse Patient Records regulations: The Federal rules restrict any use of the information to criminally investigate or prosecute any alcohol or drug abuse patient.[facility] HospitalIn the event this information is protected by the Federal Confidentiality of Alcohol and Drug Abuse Patient Records regulations: The Federal rules restrict any use of the information to criminally investigate or prosecute any alcohol or drug abuse patient.[facility] HospitalIn the event this information is protected by the Federal Confidentiality of Alcohol and Drug Abuse Patient Records regulations: The Federal rules restrict any use of the information to criminally investigate or prosecute any alcohol or drug abuse patient.[facility] HospitalIn the event this information is protected by the Federal Confidentiality of Alcohol and Drug Abuse Patient Records regulations: The Federal rules restrict any use of the information to criminally investigate or prosecute any alcohol or drug abuse patient.[facility] HospitalIn the event this information is protected by the Federal Confidentiality of Alcohol and Drug Abuse Patient Records regulations: The Federal rules restrict any use of the information to criminally investigate or prosecute any alcohol or drug abuse patient.[facility] HospitalIn the event this information is protected by the Federal Confidentiality of Alcohol and Drug Abuse Patient Records regulations: The Federal rules restrict any use of the information to criminally investigate or prosecute any alcohol or drug abuse patient.[facility] HospitalIn the event this information is protected by the Federal Confidentiality of Alcohol and Drug Abuse Patient Records regulations: The Federal rules restrict any use of the information to criminally investigate or prosecute any alcohol or drug abuse patient.[facility] HospitalIn the event this information is protected by the Federal Confidentiality of Alcohol and Drug Abuse Patient Records regulations: The Federal rules restrict any use of the information to criminally investigate or prosecute any alcohol or drug abuse patient.[facility] HospitalIn the event this information is protected by the Federal Confidentiality of Alcohol and Drug Abuse Patient Records regulations: The Federal rules restrict any use of the information to criminally investigate or prosecute any alcohol or drug abuse patient.[facility] HospitalIn the event this information is protected by the Federal Confidentiality of Alcohol and Drug Abuse Patient Records regulations: The Federal rules restrict any use of the information to criminally investigate or prosecute any alcohol or drug abuse patient.[facility] HospitalIn the event this information is protected by the Federal Confidentiality of Alcohol and Drug Abuse Patient Records regulations: The Federal rules restrict any use of the information to criminally investigate or prosecute any alcohol or drug abuse patient.[facility] HospitalIn the event this information is protected by the Federal Confidentiality of Alcohol and Drug Abuse Patient Records regulations: The Federal rules restrict any use of the information to criminally investigate or prosecute any alcohol or drug abuse patient.[facility] HospitalIn the event this information is protected by the Federal Confidentiality of Alcohol and Drug Abuse Patient Records regulations: The Federal rules restrict any use of the information to criminally investigate or prosecute any alcohol or drug abuse patient.[facility] HospitalIn the event this information is protected by the Federal Confidentiality of Alcohol and Drug Abuse Patient Records regulations: The Federal rules restrict any use of the information to criminally investigate or prosecute any alcohol or drug abuse patient.[facility] HospitalIn the event this information is protected by the Federal Confidentiality of Alcohol and Drug Abuse Patient Records regulations: The Federal rules restrict any use of the information to criminally investigate or prosecute any alcohol or drug abuse patient.[facility] HospitalIn the event this information is protected by the Federal Confidentiality of Alcohol and Drug Abuse Patient Records regulations: The Federal rules restrict any use of the information to criminally investigate or prosecute any alcohol or drug abuse patient.[facility] HospitalIn the event this information is protected by the Federal Confidentiality of Alcohol and Drug Abuse Patient Records regulations: The Federal rules restrict any use of the information to criminally investigate or prosecute any alcohol or drug abuse patient.[facility] HospitalIn the event this information is protected by the Federal Confidentiality of Alcohol and Drug Abuse Patient Records regulations: The Federal rules restrict any use of the information to criminally investigate or prosecute any alcohol or drug abuse patient.[facility] HospitalIn the event this information is protected by the Federal Confidentiality of Alcohol and Drug Abuse Patient Records regulations: The Federal rules restrict any use of the information to criminally investigate or prosecute any alcohol or drug abuse patient.[facility] HospitalIn the event this information is protected by the Federal Confidentiality of Alcohol and Drug Abuse Patient Records regulations: The Federal rules restrict any use of the information to criminally investigate or prosecute any alcohol or drug abuse patient.[facility] HospitalIn the event this information is protected by the Federal Confidentiality of Alcohol and Drug Abuse Patient Records regulations: The Federal rules restrict any use of the information to criminally investigate or prosecute any alcohol or drug abuse patient.[facility] HospitalIn the event this information is protected by the Federal Confidentiality of Alcohol and Drug Abuse Patient Records regulations: The Federal rules restrict any use of the information to criminally investigate or prosecute any alcohol or drug abuse patient.[facility] HospitalIn the event this information is protected by the Federal Confidentiality of Alcohol and Drug Abuse Patient Records regulations: The Federal rules restrict any use of the information to criminally investigate or prosecute any alcohol or drug abuse patient.[facility] HospitalIn the event this information is protected by the Federal Confidentiality of Alcohol and Drug Abuse Patient Records regulations: The Federal rules restrict any use of the information to criminally investigate or prosecute any alcohol or drug abuse patient.[facility] HospitalIn the event this information is protected by the Federal Confidentiality of Alcohol and Drug Abuse Patient Records regulations: The Federal rules restrict any use of the information to criminally investigate or prosecute any alcohol or drug abuse patient.[facility] HospitalIn the event this information is protected by the Federal Confidentiality of Alcohol and Drug Abuse Patient Records regulations: The Federal rules restrict any use of the information to criminally investigate or prosecute any alcohol or drug abuse patient.[facility] HospitalIn the event this information is protected by the Federal Confidentiality of Alcohol and Drug Abuse Patient Records regulations: The Federal rules restrict any use of the information to criminally investigate or prosecute any alcohol or drug abuse patient.[facility] HospitalIn the event this information is protected by the Federal Confidentiality of Alcohol and Drug Abuse Patient Records regulations: The Federal rules restrict any use of the information to criminally investigate or prosecute any alcohol or drug abuse patient.[facility] HospitalIn the event this information is protected by the Federal Confidentiality of Alcohol and Drug Abuse Patient Records regulations: The Federal rules restrict any use of the information to criminally investigate or prosecute any alcohol or drug abuse patient.[facility] HospitalIn the event this information is protected by the Federal Confidentiality of Alcohol and Drug Abuse Patient Records regulations: The Federal rules restrict any use of the information to criminally investigate or prosecute any alcohol or drug abuse patient.[facility] HospitalIn the event this information is protected by the Federal Confidentiality of Alcohol and Drug Abuse Patient Records regulations: The Federal rules restrict any use of the information to criminally investigate or prosecute any alcohol or drug abuse patient.[facility] HospitalIn the event this information is protected by the Federal Confidentiality of Alcohol and Drug Abuse Patient Records regulations: The Federal rules restrict any use of the information to criminally investigate or prosecute any alcohol or drug abuse patient.[facility] HospitalIn the event this information is protected by the Federal Confidentiality of Alcohol and Drug Abuse Patient Records regulations: The Federal rules restrict any use of the information to criminally investigate or prosecute any alcohol or drug abuse patient.[facility] HospitalIn the event this information is protected by the Federal Confidentiality of Alcohol and Drug Abuse Patient Records regulations: The Federal rules restrict any use of the information to criminally investigate or prosecute any alcohol or drug abuse patient.[facility] HospitalIn the event this information is protected by the Federal Confidentiality of Alcohol and Drug Abuse Patient Records regulations: The Federal rules restrict any use of the information to criminally investigate or prosecute any alcohol or drug abuse patient.[facility] HospitalIn the event this information is protected by the Federal Confidentiality of Alcohol and Drug Abuse Patient Records regulations: The Federal rules restrict any use of the information to criminally investigate or prosecute any alcohol or drug abuse patient.[facility] HospitalIn the event this information is protected by the Federal Confidentiality of Alcohol and Drug Abuse Patient Records regulations: The Federal rules restrict any use of the information to criminally investigate or prosecute any alcohol or drug abuse patient.[facility] HospitalIn the event this information is protected by the Federal Confidentiality of Alcohol and Drug Abuse Patient Records regulations: The Federal rules restrict any use of the information to criminally investigate or prosecute any alcohol or drug abuse patient.[facility] HospitalIn the event this information is protected by the Federal Confidentiality of Alcohol and Drug Abuse Patient Records regulations: The Federal rules restrict any use of the information to criminally investigate or prosecute any alcohol or drug abuse patient.[facility] HospitalIn the event this information is protected by the Federal Confidentiality of Alcohol and Drug Abuse Patient Records regulations: The Federal rules restrict any use of the information to criminally investigate or prosecute any alcohol or drug abuse patient.[facility] HospitalIn the event this information is protected by the Federal Confidentiality of Alcohol and Drug Abuse Patient Records regulations: The Federal rules restrict any use of the information to criminally investigate or prosecute any alcohol or drug abuse patient.[facility] HospitalIn the event this information is protected by the Federal Confidentiality of Alcohol and Drug Abuse Patient Records regulations: The Federal rules restrict any use of the information to criminally investigate or prosecute any alcohol or drug abuse patient.[facility] HospitalIn the event this information is protected by the Federal Confidentiality of Alcohol and Drug Abuse Patient Records regulations: The Federal rules restrict any use of the information to criminally investigate or prosecute any alcohol or drug abuse patient.[facility] HospitalIn the event this information is protected by the Federal Confidentiality of Alcohol and Drug Abuse Patient Records regulations: The Federal rules restrict any use of the information to criminally investigate or prosecute any alcohol or drug abuse patient.[facility] HospitalIn the event this information is protected by the Federal Confidentiality of Alcohol and Drug Abuse Patient Records regulations: The Federal rules restrict any use of the information to criminally investigate or prosecute any alcohol or drug abuse patient.[facility] HospitalIn the event this information is protected by the Federal Confidentiality of Alcohol and Drug Abuse Patient Records regulations: The Federal rules restrict any use of the information to criminally investigate or prosecute any alcohol or drug abuse patient.[facility] HospitalIn the event this information is protected by the Federal Confidentiality of Alcohol and Drug Abuse Patient Records regulations: The Federal rules restrict any use of the information to criminally investigate or prosecute any alcohol or drug abuse patient.[facility] HospitalIn the event this information is protected by the Federal Confidentiality of Alcohol and Drug Abuse Patient Records regulations: The Federal rules restrict any use of the information to criminally investigate or prosecute any alcohol or drug abuse patient.[facility] HospitalIn the event this information is protected by the Federal Confidentiality of Alcohol and Drug Abuse Patient Records regulations: The Federal rules restrict any use of the information to criminally investigate or prosecute any alcohol or drug abuse patient.[facility] HospitalIn the event this information is protected by the Federal Confidentiality of Alcohol and Drug Abuse Patient Records regulations: The Federal rules restrict any use of the information to criminally investigate or prosecute any alcohol or drug abuse patient.[facility] the event this information is protected by the Federal Confidentiality of Alcohol and Drug Abuse Patient Records regulations: The Federal rules restrict any use of the information to criminally investigate or prosecute any alcohol or drug abuse patient.[facility] HospitalIn the event this information is protected by the Federal Confidentiality of Alcohol and Drug Abuse Patient Records regulations: The Federal rules restrict any use of the information to criminally investigate or prosecute any alcohol or drug abuse patient.[facility] HospitalIn the event this information is protected by the Federal Confidentiality of Alcohol and Drug Abuse Patient Records regulations: The Federal rules restrict any use of the information to criminally investigate or prosecute any alcohol or drug abuse patient.[facility] HospitalIn the event this information is protected by the Federal Confidentiality of Alcohol and Drug Abuse Patient Records regulations: The Federal rules restrict any use of the information to criminally investigate or prosecute any alcohol or drug abuse patient.[facility] HospitalIn the event this information is protected by the Federal Confidentiality of Alcohol and Drug Abuse Patient Records regulations: The Federal rules restrict any use of the information to criminally investigate or prosecute any alcohol or drug abuse patient.[facility] HospitalIn the event this information is protected by the Federal Confidentiality of Alcohol and Drug Abuse Patient Records regulations: The Federal rules restrict any use of the information to criminally investigate or prosecute any alcohol or drug abuse patient.[facility] HospitalIn the event this information is protected by the Federal Confidentiality of Alcohol and Drug Abuse Patient Records regulations: The Federal rules restrict any use of the information to criminally investigate or prosecute any alcohol or drug abuse patient.[facility] HospitalIn the event this information is protected by the Federal Confidentiality of Alcohol and Drug Abuse Patient Records regulations: The Federal rules restrict any use of the information to criminally investigate or prosecute any alcohol or drug abuse patient.[facility] HospitalIn the event this information is protected by the Federal Confidentiality of Alcohol and Drug Abuse Patient Records regulations: The Federal rules restrict any use of the information to criminally investigate or prosecute any alcohol or drug abuse patient.[facility] HospitalIn the event this information is protected by the Federal Confidentiality of Alcohol and Drug Abuse Patient Records regulations: The Federal rules restrict any use of the information to criminally investigate or prosecute any alcohol or drug abuse patient.[facility] HospitalIn the event this information is protected by the Federal Confidentiality of Alcohol and Drug Abuse Patient Records regulations: The Federal rules restrict any use of the information to criminally investigate or prosecute any alcohol or drug abuse patient.[facility] HospitalIn the event this information is protected by the Federal Confidentiality of Alcohol and Drug Abuse Patient Records regulations: The Federal rules restrict any use of the information to criminally investigate or prosecute any alcohol or drug abuse patient.[facility] HospitalIn the event this information is protected by the Federal Confidentiality of Alcohol and Drug Abuse Patient Records regulations: The Federal rules restrict any use of the information to criminally investigate or prosecute any alcohol or drug abuse patient.[facility] HospitalIn the event this information is protected by the Federal Confidentiality of Alcohol and Drug Abuse Patient Records regulations: The Federal rules restrict any use of the information to criminally investigate or prosecute any alcohol or drug abuse patient.[facility] HospitalIn the event this information is protected by the Federal Confidentiality of Alcohol and Drug Abuse Patient Records regulations: The Federal rules restrict any use of the information to criminally investigate or prosecute any alcohol or drug abuse patient.[facility] HospitalIn the event this information is protected by the Federal Confidentiality of Alcohol and Drug Abuse Patient Records regulations: The Federal rules restrict any use of the information to criminally investigate or prosecute any alcohol or drug abuse patient.[facility] HospitalIn the event this information is protected by the Federal Confidentiality of Alcohol and Drug Abuse Patient Records regulations: The Federal rules restrict any use of the information to criminally investigate or prosecute any alcohol or drug abuse patient.[facility] HospitalIn the event this information is protected by the Federal Confidentiality of Alcohol and Drug Abuse Patient Records regulations: The Federal rules restrict any use of the information to criminally investigate or prosecute any alcohol or drug abuse patient.[facility] HospitalIn the event this information is protected by the Federal Confidentiality of Alcohol and Drug Abuse Patient Records regulations: The Federal rules restrict any use of the information to criminally investigate or prosecute any alcohol or drug abuse patient.[facility] HospitalIn the event this information is protected by the Federal Confidentiality of Alcohol and Drug Abuse Patient Records regulations: The Federal rules restrict any use of the information to criminally investigate or prosecute any alcohol or drug abuse patient.[facility] HospitalIn the event this information is protected by the Federal Confidentiality of Alcohol and Drug Abuse Patient Records regulations: The Federal rules restrict any use of the information to criminally investigate or prosecute any alcohol or drug abuse patient.[facility] HospitalIn the event this information is protected by the Federal Confidentiality of Alcohol and Drug Abuse Patient Records regulations: The Federal rules restrict any use of the information to criminally investigate or prosecute any alcohol or drug abuse patient.[facility] HospitalIn the event this information is protected by the Federal Confidentiality of Alcohol and Drug Abuse Patient Records regulations: The Federal rules restrict any use of the information to criminally investigate or prosecute any alcohol or drug abuse patient.[facility] HospitalIn the event this information is protected by the Federal Confidentiality of Alcohol and Drug Abuse Patient Records regulations: The Federal rules restrict any use of the information to criminally investigate or prosecute any alcohol or drug abuse patient.[facility] HospitalIn the event this information is protected by the Federal Confidentiality of Alcohol and Drug Abuse Patient Records regulations: The Federal rules restrict any use of the information to criminally investigate or prosecute any alcohol or drug abuse patient.[facility] HospitalIn the event this information is protected by the Federal Confidentiality of Alcohol and Drug Abuse Patient Records regulations: The Federal rules restrict any use of the information to criminally investigate or prosecute any alcohol or drug abuse patient.[facility] HospitalIn the event this information is protected by the Federal Confidentiality of Alcohol and Drug Abuse Patient Records regulations: The Federal rules restrict any use of the information to criminally investigate or prosecute any alcohol or drug abuse patient.[facility] Reason for Visit (unrecogniz ed section and content) Reason Comments PT Eval Specialty Diagnoses / Procedures Referred By Contac t Referred To Contact PHYSICAL THERAPY Diagnoses Physical deconditioning Procedures CONSULT TO PHYSICAL THERAPY PHYSICAL THERAPY EVALUATION HIGH COMPLEX 45 MINS Ernesto, Leighton Chi [address] [address] Referral ID Status Reason Start Date Expiration Date Visits Requested Visits Authorized [id number] Authorized PCP Requested Referral Auto-Generate d Referral 04/14/2023 04/13/2024 99 99 Reason Comments Physical Therapy Specialty Diagnoses / Procedures Referred By Contac t Referred To Contact PHYSICAL THERAPY Diagnoses Physical deconditioning Procedures CONSULT TO PHYSICAL THERAPY PHYSICAL THERAPY EVALUATION HIGH COMPLEX 45 MINS Ulises Ramos, [address] [place] [address] [address] Specialty Diagnoses / Procedures Referred By Contac t Referred To Contact [facility] Diagnoses Physical deconditioning Procedures CONSULT TO PHYSICAL THERAPY PHYSICAL THERAPY EVALUATION HIGH COMPLEX 45 MINS Ulises Ramos DO [address] [place] [address] [facility] [place] [address] [place] [address] Referral ID Status Reason Start Date Expiration Date Visits Requested Visits Authorized [id number] Authorized PCP Requested Referral Auto-Generate d Referral 12/19/2022 12/19/2023 99 99 Reason Comments PT Discharge Specialty Diagnoses / Procedures Referred By Contac t Referred To Contact Physical Therapy / PHYSICAL THERAPY Diagnoses Muscular deconditioning [R29.898] Procedures EST RS PT ORTH MSK Ulises Ramos, DO [address] [place] [address] Sia Hodge, PT [address] [address] Referral ID Status Reason Start Date Expiration Date V isits Requested Visits Authorized [id number] Authorized 04/14/2022 04/13/2023 20 20 Specialty Diagnoses / Procedures Referred By Contac t Referred To Contact [facility] Diagnoses History of left hip replacement Procedures CONSULT TO PHYSICAL THERAPY PHYSICAL THERAPY EVALUATION HIGH COMPLEX 45 MINS Ulises Ramos, DO [address] [place] [address] [facility] [place] [address] [place] [address] Referral ID Status Reason Start Date Expiration Date V isits Requested Visits Authorized [id number] Authorized 04/14/2021 04/13/2022 20 20 Reason Comments PT Progress Note Reason Onset Date Comments Community Monitoring Outreach 07/11/2021 CK D CDM Enrollment Reason Comments Appointment Reschedule appt-Prov ider out of office Reason Comments Renal Cancer Reason Comments Question Reason Comments Forms meg Reason Onset Date Comments Community Monitoring Outreach 07/26/2021 CK D Telephonic CDM Outreach Reason Comments Refill Request Reason Comments Initial Consult Initial consult 2341 11 ENT Right ear pain Nasal sore Reason Comments Medication Problem Reason Onset Date Comments Community Monitoring Outreach 08/06/2021 CK D Telephonic CDM Outreach Reason Comments Forms Meg's Reason Onset Date Comments Community Monitoring Outreach [...] Expiration Date V isits Requested Visits Authorized [id number] Authorized 04/14/2021 04/13/2022 99 99 Reason Onset [...] loss Halle Dale MD [address] [facility] [address] [place] [address] Arturo Treat [facility] [address] [place] [address] Referral ID Status Reason Start Date Expiration Date V isits Requested Visits Authorized [id number] Authorized 02/19/2022 05/20/2022 99 99 Reason Onset Date Comments Community Monitoring Outreach 03/14/2022 Specialty Diagnoses / Procedures Referred By Contac t Referred To Contact [facility] Diagnoses Muscular deconditioning Procedures CONSULT TO PHYSICAL THERAPY PHYSICAL THERAPY EVALUATION HIGH COMPLEX 45 MINS Ulises Ramos, DO [address] [place] [address] [facility] [place] [address] [place] [address] Referral ID Status Reason Start Date Expiration Date Visits Requested Visits Authorized [id number] Authorized PCP Requested Referral Auto-Generate d Referral [...] [R29.898] Procedures EST RS PT ORTH MSK Ulises Ramos, DO [address] [place] [address] Sia Hodge, PT [address] [place] [address] Reason Comments Cough Since April/greeni sh bee [...] RSPSE SPMTRY PRE&POST-BRNCDILAT ADMN Ulises Ramos, DO [address] [place] [address] [facility] [place] [address] [place] [address] Referral ID Status Reason Start Date Expiration Date V isits Requested Visits Authorized [id number] Closed Auto-Generate d Referral 07/02/2022 08/01/2023 1 1 Reason Comments Care Coordination Reason Comments Database Tester - Other NIKOLAS Phillip Reason Comments Referral Request Reason Comments Consult Reason Comments Rectal Bleeding Specialty Diagnoses / [facility] Diagnoses Chronic cough Procedures CT CHEST W IVCON DIAGNOSTIC COMPUTED TOMOGRAPHY THORAX W/CONTRAST Ulises Ramos, DO [address] [place] [address] Ct Imaging Referral ID Status Reason Start Date Expiration Date V isits Requested Visits Authorized [id number] Closed Auto-Generate d Referral 07/30/2022 08/29/2023 1 [...] Established Patient Reason Comments Appointment Psychology (new dar ent exam) with Dr Yoselin Dobbs 12/09/22, CT Chest 02/24/23, Follow up OV 03/05. Pt notified Reason Comments Escalation of Care Reason Comments Patient Question Patient Update Shortness of Breath Reason Comments Depression Reason Comments Sleep Apnea Specialty Diagnoses / Procedures [facility] Referred To Contact Diagnoses Chronic insomnia Procedures CONSULT TO SLEEP MEDICINE - ADULT OFFICE/OUTPATIENT [facility] MDM 60-74 MINUTES Ulises Ramos, [address] [place] [address] Referral ID Status Reason Start Date Expiration Date V isits Requested Visits Authorized [id number] Closed PCP Requested Referral 07/30/2022 07/30/2023 1 [...] he is no longer following up with [facility] providers-mir Reason Onset Date Comments Community Monitoring Outreach 01/15/2023 Reason Comments New Patient Visit Specialty Diagnoses / Procedures Referred By Contac t Referred To Contact Diagnoses Atrial fibrillation, unspecified type ([facility]) Procedures ECG 12 lead (Clinic Performed) Melinda Kraft MD [address] [place] [address] Referral ID Status Reason Start Date Expiration Date V isits Requested Visits Authorized [id number] Pending Review 02/20/2023 02/20/2024 1 1 Reason [...] Care Teams (unrecognized sec tion and content) Instrumentation Engineering Technician Relationship Specialty Start Date End Date Ulises Ramos, [address] [place] [address] PCP - General Family Practice 03/02/19 Instrumentation Engineering Technician Relationship Specialty Start Date End Date Ulises Ramos DO [address] [place] [address] PCP - General Family Practice 03/02/19 Louie Silva, farm operations technical directorSenior Regulatory Affairs Specialist Family Practice 07/11/21 Instrumentation Engineering Technician Relationship Specialty Start Date End Date Ulises Ramos DO [address] [place] [address] PCP - General Family Practice 03/02/19 Louie Silva, farm operations technical directorSenior Regulatory Affairs Specialist Family Practice 07/11/21 Instrumentation Engineering Technician Relationship Specialty Start Date End Date Ulises Ramos, DO [address] [place] [address] PCP - General Family Practice 03/02/19 Louie Silva, farm operations technical directorSenior Regulatory Affairs Specialist Family Practice 07/11/21 Instrumentation Engineering Technician Relationship Specialty Start Date End Date Ulises Ramos, DO [address] [place] [address] PCP - General Family Practice 03/02/19 Louie Silva, farm operations technical directorSenior Regulatory Affairs Specialist Family Practice 07/11/21 Instrumentation Engineering Technician Relationship Specialty Start Date End Date Ulises Ramos, DO [address] [place] [address] PCP - General Family Practice 03/02/19 Louie Silva, farm operations technical directorSenior Regulatory Affairs Specialist Family Practice 07/11/21 Instrumentation Engineering Technician Relationship Specialty Start Date End Date Ulises Ramos, DO [address] [place] [address] PCP - General Family Practice 03/02/19 Louie Silva, farm operations technical directorSenior Regulatory Affairs Specialist Family Practice 07/11/21 Instrumentation Engineering Technician Relationship Specialty Start Date End Date Ulises Ramos, DO [address] [place] [address] PCP - General Family Practice 03/02/19 Louie Silva, farm operations technical directorSenior Regulatory Affairs Specialist Family Practice 07/11/21 Instrumentation Engineering Technician Relationship Specialty Start Date End Date Ulises Ramos, DO [address] [place] [address] PCP - General Family Practice 03/02/19 Louie Silva, farm operations technical directorSenior Regulatory Affairs Specialist Family Practice 07/11/21 Instrumentation Engineering Technician Relationship Specialty Start Date End Date Ulises Ramos, DO [address] [facility] [place] [address] PCP - General Family Practice 03/02/19 Louie Silva, farm operations technical directorSenior Regulatory Affairs Specialist Family Practice 07/11/21 Instrumentation Engineering Technician Relationship Specialty Start Date End Date Ulises Ramos, DO [address] [facility] [place] [address] PCP - General Family Practice 03/02/19 Louie Silva, farm operations technical directorSenior Regulatory Affairs Specialist Family Practice 07/11/21 Instrumentation Engineering Technician Relationship Specialty Start Date End Date Ulises Ramos, DO [address] [facility] [address] PCP - General Family Practice 03/02/19 Louie Silva, farm operations technical directorSenior Regulatory Affairs Specialist Family Practice 07/11/21 Instrumentation Engineering Technician Relationship Specialty Start Date End Date Ulises Ramos, DO [address] [place] [address] PCP - General Family Practice 03/02/19 Louie Silva, farm operations technical directorSenior Regulatory Affairs Specialist Family Practice 07/11/21 Instrumentation Engineering Technician Relationship Specialty Start Date End Date Ulises Ramos, DO [address] [facility] [place] [address] PCP - General Family Practice 03/02/19 Louie Silva, farm operations technical directorSenior Regulatory Affairs Specialist Family Practice 07/11/21 Instrumentation Engineering Technician Relationship Specialty Start Date End Date Ulises Ramos, DO [address] [place] [address] PCP - General Family Practice 03/02/19 Louie Silva, farm operations technical directorSenior Regulatory Affairs Specialist Family Practice 07/11/21 Instrumentation Engineering Technician Relationship Specialty Start Date End Date Ulises Ramos, DO [address] [place] [address] PCP - General Family Practice 03/02/19 Louie Silva, farm operations technical directorSenior Regulatory Affairs Specialist Family Practice 07/11/21 Instrumentation Engineering Technician Relationship Specialty Start Date End Date Ulises Ramos, DO [address] [facility] [place] [address] PCP - General Family Practice 03/02/19 Louie Silva, farm operations technical directorSenior Regulatory Affairs Specialist Family Practice 07/11/21 Instrumentation Engineering Technician Relationship Specialty Start Date End Date Ulises Ramos, DO [address] [place] [address] PCP - General Family Practice 03/02/19 Louie Silva, farm operations technical directorSenior Regulatory Affairs Specialist Family Practice 07/11/21 Instrumentation Engineering Technician Relationship Specialty Start Date End Date Ulises Ramos, DO [address] [facility] [place] [address] PCP - General Family Practice 03/02/19 Louie Silva, farm operations technical directorSenior Regulatory Affairs Specialist Family Practice 07/11/21 Instrumentation Engineering Technician Relationship Specialty Start Date End Date Ulises Ramos, DO [address] [facility] [place] [address] PCP - General Family Practice 03/02/19 Louie Silva, farm operations technical directorSenior Regulatory Affairs Specialist Family Practice 07/11/21 Instrumentation Engineering Technician Relationship Specialty Start Date End Date Ulises Ramos, DO [address] [facility] [place] [address] PCP - General Family Practice 03/02/19 Louie Silva, farm operations technical directorSenior Regulatory Affairs Specialist Family Practice 07/11/21 Instrumentation Engineering Technician Relationship Specialty Start Date End Date Ulises Ramos, DO [address] [place] [address] PCP - General Family Medicine 03/02/19 Louie Silva, farm operations technical directorSenior Regulatory Affairs Specialist Family Medicine 07/11/21 Instrumentation Engineering Technician Relationship Specialty Start Date End Date Ulises Ramos, DO [address] [place] [address] PCP - General Family Medicine 03/02/19 Louie Silva, farm operations technical directorSenior Regulatory Affairs Specialist [facility] Medicine 07/11/21 Instrumentation Engineering Technician Relationship Specialty Start Date End Date Ulises Ramos, DO [address] [place] [address] PCP - General Family Medicine 03/02/19 Louie Silva, farm operations technical directorSenior Regulatory Affairs Specialist [facility] Medicine 07/11/21 Instrumentation Engineering Technician Relationship Specialty Start Date End Date Ulises Ramos, DO [address] [place] [address] PCP - General Family Medicine 03/02/19 Louie Silva, farm operations technical directorSenior Regulatory Affairs Specialist Family Medicine 07/11/21 Instrumentation Engineering Technician Relationship Specialty Start Date End Date Ulises Ramos, DO [address] [place] [address] PCP - General Family Medicine 03/02/19 Louie Silva, farm operations technical directorSenior Regulatory Affairs Specialist Family Medicine 07/11/21 Yuko Raymond, MEHUL Registered Nurse Primary Care 02/08/22 Instrumentation Engineering Technician Relationship Specialty Start Date End Date Ulises Ramos, DO [address] [place] [address] PCP - General Family Medicine 03/02/19 Louie Silva, farm operations technical directorSenior Regulatory Affairs Specialist Family Medicine 07/11/21 Yuko Raymond, RN Registered Nurse Primary Care 02/08/22 Instrumentation Engineering Technician Relationship Specialty Start Date End Date Ulises aRmos, DO [address] [place] [address] PCP - General Family Medicine 03/02/19 Louie Silva, farm operations technical directorSenior Regulatory Affairs Specialist Family Medicine 07/11/21 Yuko Raymond RN Registered Nurse Primary Care 02/08/22 Instrumentation Engineering Technician Relationship Specialty Start Date End Date Ulises Ramos, DO [address] [place] [address] PCP - General Family Medicine 03/02/19 Louie Silva, farm operations technical directorSenior Regulatory Affairs Specialist Family Medicine 07/11/21 Yuko Raymond, RN Registered Nurse Primary Care 02/08/22 Instrumentation Engineering Technician Relationship Specialty Start Date End Date Ulises Ramos, DO [address] [place] [address] PCP - General Family Medicine 03/02/19 Wilton Palma, farm operations technical directorSenior Regulatory Affairs Specialist Family Medicine 07/11/21 Yuko Raymond, RN Registered Nurse Primary Care 02/08/22 Instrumentation Engineering Technician Relationship Specialty Start Date End Date Ulises Ramos, DO [address] [place] [address] PCP - General Family Medicine 03/02/19 Wilton Palma, farm operations technical directorSenior Regulatory Affairs Specialist Family Medicine 07/11/21 Yuko Raymond, RN Registered Nurse Primary Care 02/08/22 Instrumentation Engineering Technician Relationship Specialty Start Date End Date Ulises Ramos, DO [address] [place] [address] PCP - General Family Medicine 03/02/19 Wilton Palma, farm operations technical directorSenior Regulatory Affairs Specialist Family [facility] 07/11/21 Yuko Raymond, RN Registered Nurse Primary Care 02/08/22 Instrumentation Engineering Technician Relationship Specialty Start Date End Date Ulises Ramos, DO [address] [place] [address] PCP - General Family Medicine 03/02/19 Wilton Palma, farm operations technical directorSenior Regulatory Affairs Specialist Family [facility] 07/11/21 Yuko Raymond, RN Registered Nurse Primary Care 02/08/22 Instrumentation Engineering Technician Relationship Specialty Start Date End Date Ulises Ramos, DO [address] [place] [address] PCP - General Family Medicine 03/02/19 Wilton Palma, farm operations technical directorSenior Regulatory Affairs Specialist [facility] 07/11/21 Yuko Raymond, MEHUL Registered Nurse Primary Care 02/08/22 Instrumentation Engineering Technician Relationship Specialty Start Date End Date Ulises Ramos, DO [address] [place] [address] PCP - General Family Medicine 03/02/19 Wilton Palma, farm operations technical directorSenior Regulatory Affairs Specialist [facility] 07/11/21 Yuko Raymond, RN Registered Nurse Primary Care 02/08/22 Instrumentation Engineering Technician Relationship Specialty Start Date End Date Ulises Ramos, DO [address] [place] [address] PCP - General Family Medicine 03/02/19 Wilton Palma, farm operations technical directorSenior Regulatory Affairs Specialist Family [facility] 07/11/21 Yuko Raymond, RN Registered Nurse Primary Care 02/08/22 Instrumentation Engineering Technician Relationship Specialty Start Date End Date Ulises Ramos, DO [address] [place] [address] PCP - General Family Medicine 03/02/19 Wilton Palma, farm operations technical directorSenior Regulatory Affairs Specialist Family [facility] 07/11/21 Yuko Raymond, RN Registered Nurse Primary Care 02/08/22 Instrumentation Engineering Technician Relationship Specialty Start Date End Date Ulises Ramos, DO [address] [place] [address] PCP - General Family Medicine 03/02/19 Wilton Palma, farm operations technical directorSenior Regulatory Affairs Specialist Family [facility] 07/11/21 Yuko Raymond, RN Registered Nurse Primary Care 02/08/22 Instrumentation Engineering Technician Relationship Specialty Start Date End Date Ulises Ramos, DO [address] [place] [address] PCP - General Family Medicine 03/02/19 Wilton Palma, farm operations technical directorSenior Regulatory Affairs Specialist [facility] 07/11/21 Yuko Raymond, RN Registered Nurse Primary Care 02/08/22 Instrumentation Engineering Technician Relationship Specialty Start Date End Date Ulises Ramos, DO [address] [place] [address] PCP - General Family Medicine 03/02/19 Wilton Palma, farm operations technical directorSenior Regulatory Affairs Specialist [facility] 07/11/21 Yuko Raymond, RN Registered Nurse Primary Care 02/08/22 Instrumentation Engineering Technician Relationship Specialty Start Date End Date Ulises Ramos, DO [address] [place] [address] PCP - General Family Medicine 03/02/19 Wilton Palma, farm operations technical directorSenior Regulatory Affairs Specialist Family [facility] 07/11/21 Yuko Raymond, RN Registered Nurse Primary Care 02/08/22 Instrumentation Engineering Technician Relationship Specialty Start Date End Date Ulises Ramos, DO [address] [place] [address] PCP - General Family Medicine 03/02/19 Wilton Palma, farm operations technical directorSenior Regulatory Affairs Specialist Family Medicine 07/11/21 Yuko Raymond, RN Registered Nurse Primary Care 02/08/22 Instrumentation Engineering Technician Relationship Specialty Start Date End Date Ulises Ramos, DO [address] [place] [address] PCP - General Family Medicine 03/02/19 Wilton Palma farm operations technical directorSenior Regulatory Affairs Specialist Family [facility] 07/11/21 Yuko Raymond, RN Registered Nurse Primary Care 02/08/22 Instrumentation Engineering Technician Relationship Specialty Start Date End Date Ulises Ramos, DO [address] [place] [address] PCP - General Family Medicine 03/02/19 Wilton Palma farm operations technical directorSenior Regulatory Affairs Specialist Family [facility] 07/11/21 Yuko Raymond, RN Registered Nurse Primary Care 02/08/22 Instrumentation Engineering Technician Relationship Specialty Start Date End Date Ulises Ramos, DO [address] [place] [address] PCP - General Family Medicine 03/02/19 Wilton Palma farm operations technical directorSenior Regulatory Affairs Specialist [facility] 07/11/21 Yuko Raymond, RN Registered Nurse Primary Care 02/08/22 Instrumentation Engineering Technician Relationship Specialty Start Date End Date Ulises Ramos, DO [address] [place] [address] PCP - General Family Medicine 03/02/19 Wilton Palma farm operations technical directorSenior Regulatory Affairs Specialist Family [facility] 07/11/21 Yuko Raymond, RN Registered Nurse Primary Care 02/08/22 Instrumentation Engineering Technician Relationship Specialty Start Date End Date Ulises Ramos, DO [address] [place] [address] PCP - General Family Medicine 03/02/19 Wilton Palma farm operations technical directorSenior Regulatory Affairs Specialist Family Medicine 07/11/21 Yuko Raymond, MEHUL Registered Nurse Primary Care 02/08/22 Instrumentation Engineering Technician Relationship Specialty Start Date End Date Ulises Ramos, DO [address] [place] [address] PCP - General Family Medicine 03/02/19 Wilton Palma, farm operations technical directorSenior Regulatory Affairs Specialist Family Medicine 07/11/21 Yuko Raymond, MEHUL Registered Nurse Primary Care 02/08/22 Instrumentation Engineering Technician Relationship Specialty Start Date End Date Ulises Ramos, DO [address] [place] [address] PCP - General Family Medicine 03/02/19 Wilton Palma, farm operations technical directorSenior Regulatory Affairs Specialist Family [facility] 07/11/21 Yuko Raymond RN Registered Nurse Primary Care 02/08/22 Instrumentation Engineering Technician Relationship Specialty Start Date End Date Ulises Ramos, DO [address] [place] [address] PCP - General Family Medicine 03/02/19 Wilton Palma, farm operations technical directorSenior Regulatory Affairs Specialist Family Medicine 07/11/21 Yuko Raymond, MEHUL Registered Nurse Primary Care 02/08/22 Instrumentation Engineering Technician Relationship Specialty Start Date End Date Ulises Ramos, DO [address] [place] [address] PCP - General Family Medicine 03/02/19 Wilton Palma, farm operations technical directorSenior Regulatory Affairs Specialist Family [facility] 07/11/21 Yuko Raymond RN Registered Nurse Primary Care 02/08/22 Instrumentation Engineering Technician Relationship Specialty Start Date End Date Ulises Ramos, DO [address] [place] [address] PCP - General Family Medicine 03/02/19 Wilton Palma, farm operations technical directorSenior Regulatory Affairs Specialist Family Medicine 07/11/21 Yuko Raymond, RN Registered Nurse Primary Care 02/08/22 Instrumentation Engineering Technician Relationship Specialty Start Date End Date Ulises Ramos, DO [address] [place] [address] PCP - General Family Medicine 03/02/19 Wilton Palma, farm operations technical directorSenior Regulatory Affairs Specialist Family [facility] 07/11/21 Yuko Raymond RN Registered Nurse Primary Care 02/08/22 Instrumentation Engineering Technician Relationship Specialty Start Date End Date Ulises Ramos, DO [address] [place] [address] PCP - General Family Medicine 03/02/19 Wilton Palma, farm operations technical directorSenior Regulatory Affairs Specialist [facility] 07/11/21 Yuko Raymond RN Registered Nurse Primary Care 02/08/22 Instrumentation Engineering Technician Relationship Specialty Start Date End Date Ulises Ramos, DO [address] [place] [address] PCP - General Family Medicine 03/02/19 Wilton Palma farm operations technical directorSenior Regulatory Affairs Specialist Family [facility] 07/11/21 Yuko Raymond, MEHUL Registered Nurse Primary Care 02/08/22 Instrumentation Engineering Technician Relationship Specialty Start Date End Date Ulises Ramos, DO [address] [place] [address] PCP - General Family Medicine 03/02/19 Wilton Palma farm operations technical directorSenior Regulatory Affairs Specialist Family [facility] 07/11/21 Yuko Raymond RN Registered Nurse Primary Care 02/08/22 Instrumentation Engineering Technician Relationship Specialty Start Date End Date Ulises Ramos, DO [address] [place] [address] PCP - General Family Medicine 03/02/19 Wilton Palma farm operations technical directorSenior Regulatory Affairs Specialist Family Medicine 07/11/21 Yuko Raymond, MEHUL Registered Nurse Primary Care 02/08/22 Instrumentation Engineering Technician Relationship Specialty Start Date End Date Ulises Ramos, DO [address] [place] [address] PCP - General Family Medicine 03/02/19 Wilton Palma, farm operations technical directorSenior Regulatory Affairs Specialist Family Medicine 07/11/21 Yuko Raymond, MEHUL Registered Nurse Primary Care 02/08/22 Instrumentation Engineering Technician Relationship Specialty Start Date End Date Ulises Ramos, DO [address] [place] [address] PCP - General Family Medicine 03/02/19 Wilton Palma, farm operations technical directorSenior Regulatory Affairs Specialist Family Medicine 07/11/21 Yuko Raymond, RN Registered Nurse Primary Care 02/08/22 Instrumentation Engineering Technician Relationship Specialty Start Date End Date Ulises Ramos, DO [address] [place] [address] PCP - General Family Medicine 03/02/19 Wilton Palma, farm operations technical directorSenior Regulatory Affairs Specialist Family Medicine 07/11/21 Yuko Raymond, RN Registered Nurse Primary Care 02/08/22 Instrumentation Engineering Technician Relationship Specialty Start Date End Date Ulises Ramos, DO [address] [place] [address] PCP - General Family Medicine 03/02/19 Wilton Palma, farm operations technical directorSenior Regulatory Affairs Specialist Family Medicine 07/11/21 Yuko Raymond, RN Registered Nurse Primary Care 02/08/22 Instrumentation Engineering Technician Relationship Specialty Start Date End Date Ulises Ramos, DO [address] [place] [address] PCP - General Family Medicine 03/02/19 Wilton Palma, farm operations technical directorSenior Regulatory Affairs Specialist [facility] 07/11/21 Yuko Raymond, RN Registered Nurse Primary Care 02/08/22 Instrumentation Engineering Technician Relationship Specialty Start Date End Date Ulises Ramos, [address] [place] [address] PCP - General Family Medicine 03/02/19 Wilton Palma, farm operations technical directorSenior Regulatory Affairs Specialist [facility] 07/11/21 Yuko Raymond, RN Registered Nurse Primary Care 02/08/22 Instrumentation Engineering Technician Relationship Specialty Start Date End Date Ulises Ramos, [address] [place] [address] PCP - General Family Medicine 03/02/19 Wilton Palma farm operations technical directorSenior Regulatory Affairs Specialist [facility] 07/11/21 Yuko Raymond, RN Registered Nurse Primary Care 02/08/22 Instrumentation Engineering Technician Relationship Specialty Start Date End Date Ulises Ramos, [address] [place] [address] PCP - General Family Medicine 03/02/19 Wilton Palma, farm operations technical directorSenior Regulatory Affairs Specialist [facility] 07/11/21 Yuko Raymond, MEHUL Registered Nurse Primary Care 02/08/22 Instrumentation Engineering Technician Relationship Specialty Start Date End Date Ulises Ramos, [address] [place] [address] PCP - General Family Medicine 03/02/19 Wilton Palma, farm operations technical directorSenior Regulatory Affairs Specialist [facility] 07/11/21 Yuko Raymond, RN Registered Nurse Primary Care 02/08/22 Instrumentation Engineering Technician Relationship Specialty Start Date End Date Ulises Ramos, [address] [place] [place] [address] PCP - General Family Medicine 03/02/19 Wilton Palma, farm operations technical directorSenior Regulatory Affairs Specialist Family Medicine 07/11/21 Yuko Raymond, RN Registered Nurse Primary Care 02/08/22 Instrumentation Engineering Technician Relationship Specialty Start Date End Date Ulises Ramos, DO [address] [place] [place] [address] PCP - General Family Medicine 03/02/19 Wilton Palma, farm operations technical directorSenior Regulatory Affairs Specialist Family Medicine 07/11/21 Yuko Raymond, RN Registered Nurse Primary Care 02/08/22 Instrumentation Engineering Technician Relationship Specialty Start Date End Date Ulises Ramos, [address] [place] [address] PCP - General Family Medicine 03/02/19 Wilton Palma, farm operations technical directorSenior Regulatory Affairs Specialist Family [facility] 07/11/21 Yuko Raymond, RN Registered Nurse Primary Care 02/08/22 Instrumentation Engineering Technician Relationship Specialty Start Date End Date Ulises Ramos, DO [address] [place] [place] [address] PCP - General Family Medicine 03/02/19 Wilton Palma, farm operations technical directorSenior Regulatory Affairs Specialist Family [facility] 07/11/21 Yuko Raymond, RN Registered Nurse Primary Care 02/08/22 Halle Dale MD [address] [address] Hematology/Oncology 11/29/22 Instrumentation Engineering Technician Relationship Specialty Start Date End Date Ulises Ramos, DO [address] [place] [place] [address] PCP - General Family Medicine 03/02/19 Wilton Palma, farm operations technical directorSenior Regulatory Affairs Specialist Family Medicine 07/11/21 Yuko Raymond, RN Registered Nurse Primary Care 02/08/22 Halle Dale MD [address] [place] [address] Hematology/Oncology 11/29/22 Instrumentation Engineering Technician Relationship Specialty Start Date End Date Ulises Ramos DO [address] [place] [address] PCP - General Family Medicine 03/02/19 Wilton Palma, farm operations technical directorSenior Regulatory Affairs Specialist Family Medicine 07/11/21 Yuko Raymond, RN Registered Nurse Primary Care 02/08/22 Halle Dale MD [address] [place] [address] Hematology/Oncology 11/29/22 Maddie White, farm operations technical director Measurement And Sensing Technician 12/11/22 01/10/23 Instrumentation Engineering Technician Relationship Specialty Start Date End Date Ulises Ramos DO [address] [place] [address] PCP - General Family Medicine 03/02/19 Wilton Palma farm operations technical directorSenior Regulatory Affairs Specialist Family Medicine 07/11/21 Yuko Raymond, RN Registered Nurse Primary Care 02/08/22 Halle Dale MD [address] [place] [address] Hematology/Oncology 11/29/22 Maddie White, farm operations technical director Measurement And Sensing Technician 12/11/22 01/10/23 Instrumentation Engineering Technician Relationship Specialty Start Date End Date Ulises Ramos DO [address] [place] [address] PCP - General Family Medicine 03/02/19 Wilton Palma, farm operations technical directorSenior Regulatory Affairs Specialist Family Medicine 07/11/21 Yuko Raymond, MEHUL Registered Nurse Primary Care 02/08/22 Halle Dale MD [address] [place] [address] Hematology/Oncology 11/29/22 Maddie White, farm operations technical director Measurement And Sensing Technician 12/11/22 01/10/23 Instrumentation Engineering Technician Relationship Specialty Start Date End Date Ulises Ramos DO [address] [place] [address] PCP - General Family Medicine 03/02/19 Wilton Palma RN Senior Regulatory Affairs Specialist Family Medicine 07/11/21 Yuko Raymond, RN Registered Nurse Primary Care 02/08/22 Halle Dale MD [address] [place] [address] Hematology/Oncology 11/29/22 Maddie White, farm operations technical director Measurement And Sensing Technician 12/11/22 01/10/23 Instrumentation Engineering Technician Relationship Specialty Start Date End Date Ulises Ramos DO [address] [place] [address] PCP - General Family Medicine 03/02/19 Wilton Palma, farm operations technical directorSenior Regulatory Affairs Specialist Family Medicine 07/11/21 Yuko Raymond, MEHUL Registered Nurse Primary Care 02/08/22 Halle Dale MD [address] [place] [address] Hematology/Oncology 11/29/22 Maddie White, farm operations technical director Measurement And Sensing Technician 12/11/22 01/10/23 Instrumentation Engineering Technician Relationship Specialty Start Date End Date Ulises Ramos DO [address] [place] [address] PCP - General Family Medicine 03/02/19 Wilton Palma, farm operations technical directorSenior Regulatory Affairs Specialist Family Medicine 07/11/21 Yuko Raymond, RN Registered Nurse Primary Care 02/08/22 Halle Dale MD [address] [place] [address] Hematology/Oncology 11/29/22 Maddie White, farm operations technical director Measurement And Sensing Technician 12/11/22 01/10/23 Instrumentation Engineering Technician Relationship Specialty Start Date End Date Ulises Ramos DO [address] [place] [address] PCP - General Family Medicine 03/02/19 Wilton Palma RN Senior Regulatory Affairs Specialist Family Medicine 07/11/21 Yuko Raymond, RN Registered Nurse Primary Care 02/08/22 Halle Dale MD [address] [place] [address] Hematology/Oncology 11/29/22 Maddie White, farm operations technical director Measurement And Sensing Technician 12/11/22 01/10/23 Halle Dale MD [address] [place] [address] Referring Hematology/Oncology 12/26/22 Halle Dale MD [address] [facility] [address] [place] [address] Home Care Provider Hematology/Oncology 12/26/22 Instrumentation Engineering Technician Relationship Specialty Start Date End Date Ulises Ramos DO [address] [place] [address] PCP - General Family Medicine 03/02/19 Wilton Palma, farm operations technical directorSenior Regulatory Affairs Specialist Family Medicine 07/11/21 Yuko Raymond, RN Registered Nurse Primary Care 02/08/22 Halle Dale MD [address] [place] [address] Hematology/Oncology 11/29/22 Halle Dale MD [address] [place] [address] Referring Hematology/Oncology 12/26/22 Halle Dale MD [address] [place] [address] Home Care Provider Hematology/Oncology 12/26/22 Instrumentation Engineering Technician Relationship Specialty Start Date End Date Ulises Ramos DO [address] [place] [address] PCP - General Family Medicine 03/02/19 Wilton Palma, farm operations technical directorSenior Regulatory Affairs Specialist Family Medicine 07/11/21 Yuko Raymond, RN Registered Nurse Primary Care 02/08/22 Halle Dale MD [address] [place] [address] Hematology/Oncology 11/29/22 Halle Dale MD [address] [place] [address] Referring Hematology/Oncology 12/26/22 Halle Dale MD [address] [place] [address] Home Care Provider Hematology/Oncology 12/26/22 Instrumentation Engineering Technician Relationship Specialty Start Date End Date Ulises Ramos DO [address] [place] [address] PCP - General Family Medicine 03/02/19 Wilton Palma, farm operations technical directorSenior Regulatory Affairs Specialist Family Medicine 07/11/21 Yuko Raymond, RN Registered Nurse Primary Care 02/08/22 Halle Dale MD [address] [place] [address] Hematology/Oncology 11/29/22 Halle Dale MD [address] [place] [address] Referring Hematology/Oncology 12/26/22 Halle Dale MD [address] [place] [address] Home Care Provider Hematology/Oncology 12/26/22 Instrumentation Engineering Technician Relationship Specialty Start Date End Date Ulises Ramos DO [address] [place] [address] PCP - General Family Medicine 03/02/19 Wilton Palma RN Senior Regulatory Affairs Specialist Family Medicine 07/11/21 Yuko Raymond, RN Registered Nurse Primary Care 02/08/22 Halle Dale MD [address] [place] [address] Hematology/Oncology 11/29/22 Halle Dale MD [address] [place] [address] Referring Hematology/Oncology 12/26/22 Halle Dale MD [address] [place] [address] Home Care Provider Hematology/Oncology 12/26/22 Instrumentation Engineering Technician Relationship Specialty Start Date End Date Ulises Ramos DO [address] [place] [address] PCP - General Family Medicine 03/02/19 Wilton Palma, farm operations technical directorSenior Regulatory Affairs Specialist Family Medicine 07/11/21 Yuko Raymond, RN Registered Nurse Primary Care 02/08/22 Halle Dale MD [address] [place] [address] Hematology/Oncology 11/29/22 Halle Dale MD [address] [place] [address] Referring Hematology/Oncology 12/26/22 Halle Dale MD [address] [place] [address] Home Care Provider Hematology/Oncology 12/26/22 Instrumentation Engineering Technician Relationship Specialty Start Date End Date Ulises Ramos DO [address] [place] [address] PCP - General Family Medicine 03/02/19 Wilton Palma RN Senior Regulatory Affairs Specialist Family Medicine 07/11/21 Yuko Raymond, RN Registered Nurse Primary Care 02/08/22 Halle Dale MD [address] [place] [address] Hematology/Oncology 11/29/22 Halle Dale MD [address] [place] [address] Referring Hematology/Oncology 12/26/22 Halle Dale MD [address] [facility] [address] [place] [address] Home Care Provider Hematology/Oncology 12/26/22 Instrumentation Engineering Technician Relationship Specialty Start Date End Date Ulises Ramos DO [address] [place] [address] PCP - General Family Medicine 03/02/19 Wilton Palma, farm operations technical directorSenior Regulatory Affairs Specialist Family Medicine 07/11/21 Yuko Raymond, RN Registered Nurse Primary Care 02/08/22 Halle Dale MD [address] [facility] [address] [place] [address] Hematology/Oncology 11/29/22 Halle Dale MD [address] [address] Referring Hematology/Oncology 12/26/22 Halle Dale MD [address] [facility] [address] [place] [address] Home Care Provider Hematology/Oncology 12/26/22 Instrumentation Engineering Technician Relationship Specialty Start Date End Date Aleja Uribe MD [address] [facility], [address] [place] [address] PCP - General 08/07/09 Instrumentation Engineering Technician Relationship Specialty Start Date End Date Ulises Ramos DO [address] [place] [phone] PCP - General Family Medicine 03/02/19 Wilton Palma farm operations technical directorSenior Regulatory Affairs Specialist Family Medicine 07/11/21 Yuko Raymond, RN Registered Nurse Primary Care 02/08/22 Halle Dale MD [address] [place] [address] Hematology/Oncology 11/29/22 Halle Dale MD [address] [place] [address] Referring Hematology/Oncology 12/26/22 Halle Dale MD [address] [place] [address] Home Care Provider Hematology/Oncology 12/26/22 Instrumentation Engineering Technician Relationship Specialty Start Date End Date Ulises Ramos DO [address] [place] [address] PCP - General Family Medicine 03/02/19 Wilton Palma, farm operations technical directorSenior Regulatory Affairs Specialist Family Medicine 07/11/21 Yuko Raymond RN Registered Nurse Primary Care 02/08/22 Halle Dale MD [address] [place] [address] Hematology/Oncology 11/29/22 Halle Dale MD [address] [place] [address] Referring Hematology/Oncology 12/26/22 Halle Dale MD [address] [place] [address] Home Care Provider Hematology/Oncology 12/26/22 Instrumentation Engineering Technician Relationship Specialty Start Date End Date Ulises Ramos DO [address] [place] [phone] PCP - General Family Medicine 03/02/19 Wilton Palma, farm operations technical directorSenior Regulatory Affairs Specialist Family Medicine 07/11/21 Yuko Raymond, RN Registered Nurse Primary Care 02/08/22 Halle Dale MD [address] [place] [address] Hematology/Oncology 11/29/22 Halle Dale MD [address] [place] [address] Referring Hematology/Oncology 12/26/22 Halle Dale MD [address] [place] [address] Home Care Provider Hematology/Oncology 12/26/22 Instrumentation Engineering Technician Relationship Specialty Start Date End Date Ulises Ramos DO [address] [place] [phone] PCP - General Family Medicine 03/02/19 Wilton Palma RN Senior Regulatory Affairs Specialist Family Medicine 07/11/21 Yuko Raymond, RN Registered Nurse Primary Care 02/08/22 Halle Dale MD [address] [place] [address] Hematology/Oncology 11/29/22 Halle Dale MD [address] [place] [address] Referring Hematology/Oncology 12/26/22 Halle Dale MD [address] [place] [address] Home Care Provider Hematology/Oncology 12/26/22 Instrumentation Engineering Technician Relationship Specialty Start Date End Date Ulises Ramos DO [address] [place] [phone] PCP - General Family Medicine 03/02/19 Wilton Palma, farm operations technical directorSenior Regulatory Affairs Specialist Family Medicine 07/11/21 Yuko Raymond, RN Registered Nurse Primary Care 02/08/22 Halle Dale MD [address] [place] [address] Hematology/Oncology 11/29/22 Halle Dale MD [address] [place] [address] Referring Hematology/Oncology 12/26/22 Halle Dale MD [address] [place] [address] Home Care Provider Hematology/Oncology 12/26/22 Instrumentation Engineering Technician Relationship Specialty Start Date End Date Ulises Ramos DO [address] [place] [address] PCP - General Family Medicine 03/02/19 Wilton Palma, farm operations technical directorSenior Regulatory Affairs Specialist [facility] Medicine 07/11/21 Yuko Raymond, RN Registered Nurse Primary Care 02/08/22 Halle Dale MD [address] [place] [address] Hematology/Oncology 11/29/22 Halle Dale MD [address] [place] [address] Referring Hematology/Oncology 12/26/22 Halle Dale MD [address] [place] [address] Home Care Provider Hematology/Oncology 12/26/22 Instrumentation Engineering Technician Relationship Specialty Start Date End Date Ulises Ramos DO [address] [place] [phone] PCP - General Family Medicine 03/02/19 Wilton Palma farm operations technical directorSenior Regulatory Affairs Specialist Family Medicine 07/11/21 Yuko Raymond, RN Registered Nurse Primary Care 02/08/22 Halle Dale MD [address] [place] [address] Hematology/Oncology 11/29/22 Halle Dale MD [address] [place] [address] Referring Hematology/Oncology 12/26/22 Halle Dale MD [address] [facility] [address] [place] [address] Home Care Provider Hematology/Oncology 12/26/22 Instrumentation Engineering Technician Relationship Specialty Start Date End Date Sandi Dutton MD [address] [place] [phone] PCP - General 08/19/17 Instrumentation Engineering Technician Relationship Specialty Start Date End Date Ulises Ramos DO [address] [place] [phone] PCP - General Family Medicine 03/02/19 12/04/23 Leighton Orozco Chi [address] [address] PCP - General Gerontology 12/05/23 Wilton Palma RN Senior Regulatory Affairs Specialist Family Medicine 07/11/21 12/04/23 Yuko Raymond, MEHUL Registered Nurse Primary Care 02/08/22 Halle Dale MD [address] [place] [address] Hematology/Oncology 11/29/22 Halle Dale MD [address] [place] [address] Referring Hematology/Oncology 12/26/22 Halle Dale MD [address] [place] [address] Home Care Provider Hematology/Oncology 12/26/22 Instrumentation Engineering Technician Relationship Specialty Start Date End Date Leighton Orozco Chi [address] [place] [address] PCP - General Gerontology 12/05/23 Yuko Raymond RN Registered Nurse Primary Care 02/08/22 Halle Dale MD [address] [place] [address] Hematology/Oncology 11/29/22 Halle Dale MD [address] [place] [address] Referring Hematology/Oncology 12/26/22 Halle Dale MD [address] [place] [address] Home Care Provider Hematology/Oncology 12/26/22 Instrumentation Engineering Technician Relationship Specialty Start Date End Date ErnestoLeighton Chi [address] [place] [address] PCP - General Gerontology 12/05/23 Yuko Raymond, MEHUL Registered Nurse Primary Care 02/08/22 Halle Dale MD [address] [place] [address] Hematology/Oncology 11/29/22 Halle Dale MD [address] [facility] [address] [place] [address] Referring Hematology/Oncology 12/26/22 Halle Dale MD [address] [facility] [address] [place] [address] Home Care Provider Hematology/Oncology 12/26/22 FOR RECORDS [...] BE BASED ON THE PRIMARY CLINICAL RECORDS. [facility] [employer] [facility] provides no warranty or guarantee of the accuracy or completeness of information in this document.
--- OUTSIDE RECORDS SUMMARY | 2024-10-13 22:51 | XMS RPT_ITS | CCD ---
Author Organization [facility] Care Team Providers Care Retail Marketing Specialist Name Role Phone Efe Suarez Unavailable Unavailable Sandi Dutton Unavailable Unavailable Sandi Dutton Unavailable Unavailable Ulises Ramos DO Primary Care Provider [phone] Wilton CARVER, Louie Beltre Unavailable UnavailUlises Garcia DO Primary Care Provider [phone] Louie Silva RN Unavailable UnavailUlises Garcia DO Primary Care Provider [phone] Louie Silva RN Unavailable UnavailDr. Aleja Weaver Primary Care JAKOB Conway Attending Unavailable Segundo CARVER, Yuko Unavailable Unavailable Louie CARVER, Wilton Beltre Unavailable UnavailUilses Garcia DO Primary Care Provider [phone] Louie CARVER, Wilton Beltre Unavailable Unavailmarbin Raymond RN, Yuko Unavailable Unavailable Louie CARVER, Wilton Beltre Unavailable Unavailmarbin Dale MD, Fanchantelle Unavailable Maddie White RN Unavailable Unavailable Chito COLINDRES, Fanchantelle Unavailable Chito COLINDRES, Fang Unavailable Aleja rUibe MD Primary Care Provider MELINDA KRAFT Attending ALEJA Gonzalez Primary Care Unavailable ULISES RAMOS DO Primary Care Physician SANDI DUTTON Primary Care Unavailable ULISES RAMOS DO Primary Care Unavailable TRISHA COLINDRES, DR SAM Wang Attending Jeramy JOHNSON MD, DR PEREYRA Attending Unavailab le RICHARD DO, ULISES Primary Care Unavailable Richard DO, Ulises Aguayo Primary Care Provider [phone] ESRENE DO~[id number], SERENE NHAN Atten carlos manuel Unavailable SAV COLINDRES, АНДРЕЙ Haro Consulting Unavailable MON DO, ARY Hernandez Procedure Practitioner Vita vailable MON DO~[id number], MEG Hernandez Admittin g Unavailable ULISES RAMOS Primary Care Unavailable SAV COLINDRES, АНДРЕЙ Haro Consulting Unavailable ZAHIDA COLINDRES, АНДРЕЙ Haro Consulting Unavailmarbin TEAGUE MD, АНДРЕЙ Haro Consulting Unavailmarbin LOVELACE MD, NALDO Beltre Consulting Unavailable ALBANIA COLINDRES, NALDO Beltre Consulting Unavailable JAYDEN COLINDRES, ERNIE Consulting Unavailable JAYDEN COLINDRES, ERNIE Consulting Unavailable ULISES RAMOS Primary Care Unavailable ROBERT COLINDRES~[id number], ROBERT cannon Unavailable ROBERT COLINDRES~[id number], ROBERT horowitz Unavailable ULISES RAMOS Primary Care Unavailable [place] COLINDRES~[id number], [place] Andersonittnisreen lockhart Unavailable [place] COLINDRES~[id number], [place] Beltre Attendin g Unavailable ULISES RAMOS Primary Care Unavailable LE DO~[id number], RAUDEL ARIZMENDI Admitting Jeramy moore LE DO~[id number], RAUDEL ARIZMENDI Attending Sandi Enamorado MD Primary Care Provider Richard SIERRA, Ulises Aguayo Primary Care Provider [phone] Louie CARVER, Wilton Beltre Unavailable UnavailLeighton Justin [...] Unavailable Ernesto, Leighton Chi Primary Care Unavailable [place], Quentin Referring Unavailable [place], Quentin Admitting Unavailable Edmonds, Monisha Attending Unavailable [...] Unavailable Ernesto, Leighton Chi Primary Care Unavailable [place] Quentin Attending Unavailable Ernesto, Leighton Chi Referring Unavailable Ernesto, Leighton Chi Primary Care Unavailable IsckarusNaiour Attending Unavailable Ernesto, Leighton Chi Referring Unavailable Ernesto, Leighton Chi Primary Care Unavailable Ernesto, Leighton Chi Attending Unavailable Enresto, Leighton Chi Primary Care Unavailable Ernesto, Leighton Chi Attending Unavailable Ernesto, Leighton Chi Primary Care Unavailable Ernesto, Leighton Chi Attending Unavailable Ernesto, Leighton Chi Referring Unavailable Edmonds, Monisha Referring Unavailable [place], Monisha Attending Unavailable Ernesto, Leightno Chi Primary Care Unavailable Ernesto, Leighton Chi Primary Care Unavailable Ernesto, Leighton Chi Attending Unavailable Ernesto, Leighton Chi Referring Unavailable Ernesto, Leighton Chi Primary Care Unavailable [place]mond[place], Monisha Attending Unavailable [place], Monisha Referring Unavailable Ernesto, Leighton Chi Primary Care Unavailable Renesto, Leighton Chi Attending Unavailable Ernesto, Leighton Chi [...] Unavailable Ernesto, Leighton Chi Primary Care Unavailable [place], Quentin Attending Unavailable [place], Quentin Referring Unavailable [place], Quentin Admitting Unavailable Ernesto, Leighton Chi Admitting Unavailable Ernesto, Leighton Chi Primary Care Unavailable Ernesto, Leighton Chi Attending Unavailable Gregg Mcdonnell Consulting Unavailable [...] Elizabeth Consulting Unavailable Quentin Chapman Consulting Unavailable Manohar Au Consulting Unavailable Ernesto, [...] Ernesto, Leighton Chi Primary Care Unavailable Yvette Shine Attending Unavailable Ernesto, Leighton Chi Referring Unavailable [...] Unavailable Ernesto, Leighton Chi Primary Care Unavailable [place], Quentin Consulting Unavailable [place], Quentin Attending Unavailable [place], Quentin Referring Unavailable Merlin, Quentin Admitting Unavailable Ernesto, Leighton Chi Attending Unavailable Ernesto, Leighton Chi Primary Care Unavailable Ernesto, Leighton Chi Primary Care Unavailable Ernesto, Leighton Chi Attending Unavailable Ernesto, Leighton Chi Referring Unavailable Allergies Allergy Classification Reported Allergen(s) Allergy Type Date of Onset Reaction(s) Facility (20 sources) Penicillin; Translations: [penicillin] Drug Allergy 7 Hives [facility] (20 sources) Doxycycline; Translations: [doxycycline] Drug Allergy 2 Intolerance, Other [facility] Work Phone: (20 sources) Penicillin V; Translations: [PENICILLIN V POTASSIUM] Drug Allergy 2 Other: See Comments [facility] (3 sources) levoFLOXacin; Translations: [LEVOFLOXACIN] Drug Allergy 3 Unknown [facility] Work Phone: (2 sources) Penicillins; Translations: [PENICILLINS] Drug Allergy 3 Unknown [facility] Work Phone: (1 source) Doxycycline Drug Allergy [facility] Repository (1 source) Penicillins Drug Allergy 6 Hives, Other, Unknown [facility] (1 source) Doxycycline Drug Allergy 5 [facility] Repository (1 source) Penicillins Drug allergy (disorder) 5 [facility] Repository Medications Current Medications Medication Drug Class(es) Dates Sig (Normalized) Sig (Original) acetaminophen 325 mg / HYDROcodone bitartrate 5 mg oral tablet (1 source) Opioid Agonist Start: 05-05-2023 End: 05-10-2023 take 1 tablet by mouth every six hours [facility] 325- 5 mg oral tablet Dose = [...] day(s), # 28 tab(s), 0 Refill(s), Pharmacy: [facility]/pharmacy #[id number], Intertrochanteric fracture of right hip, 177.8, [...] bear th every 6 hours as needed. [id number] 200 actuat albuterol 0.09 mg/actuat metered dose [...] 10.7 Unit: g Repeat number: 1 calcitriol 0.21540 mg oral capsule (20 sources) Vitamin D3 [...] Active Start: 01-18-2021 take 1 capsule by [facility] once daily calcitriol (ROCALTROL) 0.25 [...] 1 Start: 09-13-2020 take 1 tablet by bear th twice daily as needed calcium carbonate [...] Start: 02-12-2023 ergocalciferol (Vitamin D-2) 1.25 MG (05249 UT) capsule Start: 09-14-2020 ergocalciferol 50,000 unit [...] tab(s) Repeat number: 1 polyethylene glycol 3350 836998 mg / potassium chloride 2970 mg / sodium bicarbonate 6740 mg / sodium chloride 5860 mg / sodium sulfate 32080 mg powder for oral solution (18 sources) [...] Comment on above: Take 1 tablet by [facility] twice daily for 10 days. Trelegy Ellipta [...] on above: Take 3 tablets by mo [facility] twice daily before meals. docusate sodium 100 mg oral capsule (16 sources) Start: End: take 1 capsule by mouth twice daily docusate sodium (COLACE) 100 mg capsule TAKE 1 CAPSULE BY MOUTH 2 TIMES PER DAY 0 01/21/2022 03/22/2022 Discontinued (Course of therapy completed) Comment on above: TAKE 1 CAPSULE BY [facility] 2 TIMES PER DAY doxepin 3 [...] ago, but is going to ask his Home Care Associate to see if he should continue. 0 07/14/2021 12/03/2021 Discontinued Start: 07-14-2021 Fluorouracil 5 % cream APPLY CREAM TOPICALLY TWICE DAILY TO FOREHEAD DIRECTED FOR 14 DAYS 0 07/14/2021 Active Comment on above: APPLY CREAM TOPICALL Y TWICE DAILY TO FOREHEAD DIRECTED FOR 14 DAYS Patient states she s topped this 2 days ago, but is going to ask his Home Care Associate to see if he should continue. 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) use of inhaled steroids; Translations: [ASSOCIATE PROFESSOR OF KINESIOLOGY USE OF INHALED STEROIDS] Onset: 4 Episodic Other aftercare (1 source) correction (current) use of systemic steroids; Translations: [ASSOCIATE PROFESSOR OF KINESIOLOGY USE OF SYSTEMIC STEROIDS] Onset: 4 Episodic Other aftercare (1 source) Other halfway (current) drug therapy; Translations: [OTH CUSTODIAL CURRENT DRUG THERAPY] Onset: 4 Episodic Other [...] [#/Vol] 36.2 10*3/uL Invalid Interpretation Code 4.4-11.0 [facility] Comment on above: Result Comment: CRIT ICAL VALUE CALLED TO CASEY REYNA10/07/24 1551 Agnieszka Jules.RESULTS READ BACK BY SAME. AMENDED REPORT 10/07/24 1552 WBC previously reported as: 36.2 *H K/mm3 Performed By: #### L 100.0100, L503.6550, L503.6030, L500.4050, L501.9520, L506.1001 ####[facility] [address] [place], [place], [id number] Comprehensive Metabolic Prof mdon 10-07-2024 Albumin [Mass/Vol] 4.3 g/dL Normal 3.4-4.8 [facility] Comment on above: Performed By: #### L 100.0100, L503.6550, L503.6030, L500.4050, L501.9520, L506.1001 ####[facility] [address] [place], [place], [id number] Albumin/Globulin [Mass ratio] 2.0 {ratio} Normal 0.9-2.4 [facility] Comment on above: Performed By: #### L 100.0100, L503.6550, L503.6030, L500.4050, L501.9520, L506.1001 ####[facility] [address] [place], [address] ALK PHOS 98 U/L Normal 40-129 [facility] Comment on above: Performed By: #### L 100.0100, L503.6550, L503.6030, L500.4050, L501.9520, L506.1001 ####[facility] [address] [place], [address] ALT [Catalytic activity/Vol] 13 U/L Normal <=46 [facility] Comment on above: Performed By: #### L 100.0100, L503.6550, L503.6030, L500.4050, L501.9520, L506.1001 ####[facility] [address] [place], [address] AST [Catalytic activity/Vol] 20 U/L Normal <=37 [facility] Comment on above: Performed By: #### L 100.0100, L503.6550, L503.6030, L500.4050, L501.9520, L506.1001 ####[facility] [address] [place], [address] Bilirubin [Mass/Vol] 0.28 mg/dL Normal 0.00-1.30 [facility] Comment on above: Performed By: #### L 100.0100, L503.6550, L503.6030, L500.4050, L501.9520, L506.1001 ####[facility] [address] [place], [address] BUN/CRE 16.1 RATIO Normal 10-20 [facility] Comment on above: Performed By: #### L 100.0100, L503.6550, L503.6030, L500.4050, L501.9520, L506.1001 ####[facility] [address] [place], [address] Calcium [Mass/Vol] 9.7 mg/dL Normal 7.6-11.0 [facility] Comment on above: Performed By: #### L 100.0100, L503.6550, L503.6030, L500.4050, L501.9520, L506.1001 ####[facility] [address] [place], [address] Chloride [Moles/Vol] 104 mmol/L Normal 98-108 [facility] Comment on above: Performed By: #### L 100.0100, L503.6550, L503.6030, L500.4050, L501.9520, L506.1001 ####[facility] [address] [place], [address] CO2 [Moles/Vol] 20.7 mmol/L Low 21.0-32.0 [facility] Comment on above: Performed By: #### L 100.0100, L503.6550, L503.6030, L500.4050, L501.9520, L506.1001 ####[facility] [address] [place], [address] Creatinine [Mass/Vol] 2.01 mg/dL High 0.70-1.20 [facility] Comment on above: Performed By: #### L 100.0100, L503.6550, L503.6030, L500.4050, L501.9520, L506.1001 ####[facility] [address] [place], [address] GAP 15 Normal 5-15 [facility] Comment on above: Performed By: #### L 100.0100, L503.6550, L503.6030, L500.4050, L501.9520, L506.1001 ####[facility] [address] [place], [address] GFR/1.73 sq M.predicted among non-blacks MDRD (S/P/Bld) [Vol rate/Area] 35 mL/min/{1.73_m2} Low >60 [facility] Comment on above: Result Comment: mL/m in/1.73m2 CKD-EPI Creatinine Equation (2020) Performed By: #### L 100.0100, L503.6550, L503.6030, L500.4050, L501.9520, L506.1001 ####[facility] [address] [place], [address] Globulin (S) [Mass/Vol] 2.1 g/dL Low 2.2-4.2 [facility] Comment on above: Performed By: #### L 100.0100, L503.6550, L503.6030, L500.4050, L501.9520, L506.1001 ####[facility] [address] [place], [address] Glucose [Mass/Vol] 103 mg/dL High 70-99 [facility] Comment on above: Performed By: #### L 100.0100, L503.6550, L503.6030, L500.4050, L501.9520, L506.1001 ####[facility] [address] [place], [address] Potassium [Moles/Vol] 5.5 mmol/L High 3.3-5.1 [facility] Comment on above: Performed By: #### L 100.0100, L503.6550, L503.6030, L500.4050, L501.9520, L506.1001 ####[facility] [address] [place], [address] Sodium [Moles/Vol] 140 mmol/L Normal 133-145 [facility] Comment on above: Performed By: #### L 100.0100, L503.6550, L503.6030, L500.4050, L501.9520, L506.1001 ####[facility] [address] [place], [address] T PROT 6.4 g/dL Normal 5.9-8.4 [facility] Comment on above: Performed By: #### L 100.0100, L503.6550, L503.6030, L500.4050, L501.9520, L506.1001 ####[facility] [address] [place], [address] Urea nitrogen [Mass/Vol] 32 mg/dL High 4-19 [facility] Comment on above: Performed By: #### L 100.0100, L503.6550, L503.6030, L500.4050, L501.9520, L506.1001 ####[facility] [address] [place], [address] Ferritinon 10-07-2024 Ferritin [Mass/Vol] 196 ng/mL Normal 37-417 [facility] Comment on above: Performed By: #### L 100.0100, L503.6550, L503.6030, L500.4050, L501.9520, L506.1001 ####[facility] [address] [place], [address] Iron+Iron Binding Capacityon 10-07-2024 Iron [Mass/Vol] 112 ug/dL Normal 65-175 [facility] Comment on above: Performed By: #### L 100.0100, L503.6550, L503.6030, L500.4050, L501.9520, L506.1001 ####[facility] [address] [place], [address] IRON SATURATION 40.0 Normal 9-55 [facility] Comment on above: Performed By: #### L 100.0100, L503.6550, L503.6030, L500.4050, L501.9520, L506.1001 ####[facility] [address] [place], [address] TIBC 283 ug/dL Normal 250-450 [facility] Comment on above: Performed By: #### L 100.0100, L503.6550, L503.6030, L500.4050, L501.9520, L506.1001 ####[facility] [address] [place], [address] UIBC 171 ug/dL Low 228-428 [facility] Comment on above: Performed By: #### L 100.0100, L503.6550, L503.6030, L500.4050, L501.9520, L506.1001 ####[facility] [address] [place], [address] Thyroid Stim Hormone (TSH)on 10-07-2024 TSH 1.480 uIU/mL Normal 0.300-4.200 [facility] Comment on above: Performed By: #### L 100.0100, L503.6550, L503.6030, L500.4050, L501.9520, L506.1001 ####[facility] [address] [place], [address] Vitamin D,25 Hydroxyon 10-07 Vitamin D 25-OH 38.1 ng/mL Normal 30-100 [facility] Comment on above: Result Comment: Mila min D StatusDeficiency: <20 ng/mL (50nmol/L)Insufficiency: 20-30 ng/mL (50-75 nmol/L)Sufficiency: 30-100 ng/mL (75-250 nmol/L)Toxicity: >100 ng/mL (>250 nmol/L) Performed By: #### L 100.0100, L503.6550, L503.6030, L500.4050, L501.9520, L506.1001 ####[facility] [address] [place], [address] Inital Evaluation (1) - PTon 10-06-2024 Inital Evaluation (1) - PT Normal [facility] MR/BMS.BPon 09-19-2024 MR/BMS.BP Normal [facility] Acid Fast Bacillus Cultureon 09-13-2024 tAFBC Normal [facility] Comment on above: Performed By: #### M 100.2000, M600.2000, M300.2000, M300.3000, M100.2400 ####[facility] [address] [place], [address] Acid Fast Bacillus Smear/Flu oron 09-13-2024 tafb Normal [facility] Comment on above: Performed By: #### M 100.2000, M600.2000, M300.2000, M300.3000, M100.2400 ####[facility] [address] [place], [address] Culture, Fungus 8482on 09-13 CUF Normal [facility] Comment on above: Performed By: #### M 100.2000, M600.2000, M300.2000, M300.3000, M100.2400 ####[facility] [address] [place], [address] MR/BMS.BPon 08-27-2024 MR/BMS.BP Normal [facility] CBC W/Diff, Automatedon 04- PATH REV Reviewed Normal [facility] Comment on above: Order Comment: CRITI KENTRELL VALUE CALLED TO BRIDGET07/29/24 Tiffany Santoyo.RESULTS READ BACK BY ELROY. 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, [address] PATH REV Reviewed Normal [facility] Comment on above: Result Comment: SEE REPORT IN PATIENT'S EMR AMENDED REPORT 08/06/24 0857 PATH REV previously reported as: August foll Performed By: #### L 500.2500, L100.0100 ####[facility] [address] [place], [address] Chiropractic Reporton 2024 Chiropractic Report Normal [facility] Immunoglobulin Yosef 5 IMMUNOGLOB G QN 411 mg/dL Low 603-1613 [facility] Comment on above: Result Comment: Perf ormed at: - [facility] [address] [id number] Director: Jorge Chatterjee PhD, Phone: [phone] Performed By: #### L 9201.3146 ####[facility] [address] [place], [place], [id number] Ferritinon 07-29-2024 Ferritin [Mass/Vol] 321 ng/mL Normal 37-417 [facility] Comment on above: Order Comment: ADD O N FROM EARLIER TODAY, THANKS Performed By: #### L 503.6030, L503.4450 ####[facility] [address] [place], [address] Iron+Iron Binding Capacityon 07-29-2024 Iron [Mass/Vol] 33 ug/dL Low 65-175 [facility] Comment on above: Order Comment: ADD O N FROM EARLIER TODAY, THANKS Performed By: #### L 503.6030, L503.6550 ####[facility] [address] [place], [address] IRON SATURATION 13.0 Normal 9-55 [facility] Comment on above: Order Comment: ADD O N FROM EARLIER TODAY, THANKS Performed By: #### L 503.6030, L503.6550 ####[facility] [address] [place], [address] TIBC 245 ug/dL Low 250-450 [facility] Comment on above: Order Comment: ADD O N FROM EARLIER TODAY, THANKS Performed By: #### L 503.6030, L503.6550 ####[facility] [address] [place], [address] UIBC 212 ug/dL Low 228-428 [facility] Comment on above: Order Comment: ADD O N FROM EARLIER TODAY, THANKS Performed By: #### L 503.6030, L503.6550 ####[facility] [address] [place], [address] Oncology Visit Reporton 07-13 Oncology Visit Report Normal [facility] Respiratory Cultureon 2024 RESPC Normal [facility] Comment on above: Performed By: #### M 100.2000, M600.2000, M300.2000, M300.3000, M100.2400 ####[facility] [address] [place], [address] Gram Stainon 07-26-2024 GS Acceptable Specimen? Yes (<25 Epithelial cells per/lpf) Gram Stain 3+ Gram positive cocci 3+ Gram negative rods 2+ Gram positive rods 3+ White Blood Cells 1+ Epithelial cells Normal [facility] Comment on above: Performed By: #### M 100.2000, M600.2000, M300.2000, M300.3000, M100.2400 ####[facility] [address] [place], [address] CBC W/Diff, Automatedon 04-0 PATH REV N/A Normal [facility] Comment on above: Result Comment: AMENDED REPORT 07/21/242157 PATH REV previously reported as: May foll Performed By: #### L 100.0100, L500.4050, L501.9520, L506.1001 ####[facility] [address] [place], [address] Comprehensive Metabolic Prof ilon 07-20-2024 Albumin [Mass/Vol] 3.5 g/dL Normal 3.4-4.8 [facility] Comment on above: Performed By: #### L 100.0100, L500.4050, L501.9520, L506.1001 ####[facility] [address] [place], [address] Albumin/Globulin [Mass ratio] 1.3 {ratio} Normal 0.9-2.4 [facility] Comment on above: Performed By: #### L 100.0100, L500.4050, L501.9520, L506.1001 ####[facility] [address] [place], [address] ALK PHOS 118 U/L Normal 40-129 [facility] Comment on above: Performed By: #### L 100.0100, L500.4050, L501.9520, L506.1001 ####[facility] [facility] [address] [place], [address] ALT [Catalytic activity/Vol] 27 U/L Normal <=46 [facility] Comment on above: Performed By: #### L 100.0100, L500.4050, L501.9520, L506.1001 ####[facility] [address] [place], [address] AST [Catalytic activity/Vol] 17 U/L Normal <=37 [facility] Comment on above: Performed By: #### L 100.0100, L500.4050, L501.9520, L506.1001 ####[facility] [address] [place], [address] Bilirubin [Mass/Vol] 0.33 mg/dL Normal 0.00-1.30 [facility] Comment on above: Performed By: #### L 100.0100, L500.4050, L501.9520, L506.1001 ####[facility] [address] [place], [address] BUN/CRE 14.0 RATIO Normal 10-20 [facility] Comment on above: Performed By: #### L 100.0100, L500.4050, L501.9520, L506.1001 ####[facility] [address] [place], [address] Calcium [Mass/Vol] 9.1 mg/dL Normal 7.6-11.0 [facility] Comment on above: Performed By: #### L 100.0100, L500.4050, L501.9520, L506.1001 ####[facility] [address] [place], [address] Chloride [Moles/Vol] 101 mmol/L Normal 98-108 [facility] Comment on above: Performed By: #### L 100.0100, L500.4050, L501.9520, L506.1001 ####[facility] [address] [place], [address] CO2 [Moles/Vol] 22.7 mmol/L Normal 21.0-32.0 [facility] Comment on above: Performed By: #### L 100.0100, L500.4050, L501.9520, L506.1001 ####[facility] [address] [place], [address] Creatinine [Mass/Vol] 1.82 mg/dL High 0.70-1.20 [facility] Comment on above: Performed By: #### L 100.0100, L500.4050, L501.9520, L506.1001 ####[facility] [address] [place], [address] GAP 14 Normal 5-15 [facility] Comment on above: Performed By: #### L 100.0100, L500.4050, L501.9520, L506.1001 ####[facility] [address] [place], [address] GFR/1.73 sq M.predicted among non-blacks MDRD (S/P/Bld) [Vol rate/Area] 39 mL/min/{1.73_m2} Low >60 [facility] Comment on above: Result Comment: mL/m in/1.73m2 CKD-EPI Creatinine Equation (2020) Performed By: #### L 100.0100, L500.4050, L501.9520, L506.1001 ####[facility] [address] [place], [address] Globulin (S) [Mass/Vol] 2.7 g/dL Normal 2.2-4.2 [facility] Comment on above: Performed By: #### L 100.0100, L500.4050, L501.9520, L506.1001 ####[facility] [address] [place], [address] Glucose [Mass/Vol] 117 mg/dL High 70-99 [facility] Comment on above: Performed By: #### L 100.0100, L500.4050, [id number], L506.1001 ####[facility] [address] [place], [address] Potassium [Moles/Vol] 4.3 mmol/L Normal 3.3-5.1 [facility] Comment on above: Performed By: #### L 100.0100, L500.4050, [id number], L506.1001 ####[facility] [address] [place], [address] Sodium [Moles/Vol] 138 mmol/L Normal 133-145 [facility] Comment on above: Performed By: #### L 100.0100, L500.4050, [id number], L506.1001 ####[facility] [address] [place], [address] T PROT 6.2 g/dL Normal 5.9-8.4 [facility] Comment on above: Performed By: #### L 100.0100, L500.4050, [id number], L506.1001 ####[facility] [address] [place], [address] Urea nitrogen [Mass/Vol] 25 mg/dL High 4-19 [facility] Comment on above: Performed By: #### L 100.0100, L500.4050, [id number], L506.1001 ####[facility] [address] [place], [address] Thyroid Stim Hormone (TSH)on 07-20-2024 TSH 0.371 uIU/mL Normal 0.300-4.200 [facility] Comment on above: Performed By: #### L 100.0100, L500.4050, [id number], L506.1001 ####[facility] [address] [place], [address] Vitamin D,25 Hydroxyon 07-20 Vitamin D 25-OH 31.4 ng/mL Normal 30-100 [facility] Comment on above: Result Comment: Mila min D StatusDeficiency: <20 ng/mL (50nmol/L)Insufficiency: 20-30 ng/mL (50-75 nmol/L)Sufficiency: 30-100 ng/mL (75-250 nmol/L)Toxicity: >100 ng/mL (>250 nmol/L) Performed By: #### L 100.0100, L500.4050, L501.9520, L506.1001 ####[facility] [address] [place], [address] CBC W/Diff, Automatedon 04-0 PATH REV N/A Normal [facility] Comment on above: Result Comment: AMENDED REPORT 07/18/24 1800 PATH REV previously reported as: August Performed By: #### L 500.2500, L100.0100 ####[facility] [address] [place], [address] HH, Hemoglobin AND Hematocri ton 07-14-2024 Hematocrit (Bld) [Volume fraction] 30.6 % Low 40-54 [facility] Comment on above: Order Comment: 24 HO URS POST TRANFUSION Performed By: #### L 100.0600 ####[facility] [address] [place], [address] Hemoglobin (Bld) [Mass/Vol] 10.2 g/dL Low 13.0-16.5 [facility] Comment on above: Order Comment: 24 HO URS POST TRANFUSION Performed By: #### L 100.0600 ####[facility] [address] [place], [address] HH, Hemoglobin AND Hematocri ton 07-12-2024 Hematocrit (Bld) [Volume fraction] 24.1 % Low 40-54 [facility] Comment on above: Performed By: #### L 100.0600 ####[facility] [address] [place], [address] Hemoglobin (Bld) [Mass/Vol] 8.1 g/dL Low 13.0-16.5 [facility] Comment on above: Performed By: #### L 100.0600 ####[facility] [address] [place], [address] MR/CON.PCM.GIon 07-12-2024 MR/CON.PCM.GI Normal [facility] BRCon 07-11-2024 RC Normal [facility] Comment on above: Result Comment: [id number] BN RC TRANSFUSED 07/13/24 [id number] BN RC NOT AVAILABLE Performed By: #### B RC, BTS ####[facility] [address] [place], [address] Type AND Screenon 07-11-2024 ABO and Rh group Nom (Bld) Blood group B Rh(D) positive Normal [facility] Comment on above: Order Comment: CMV N EG? NNumber of units to transfuse: 2Reason for Ordering Blood: AcuteAre the blood/blood products to be transfused? YIs the patient having/had surgery? YWhen ReadyNYA Performed By: #### B RC, BTS ####[facility] [address] [place], [address] HH, Hemoglobin AND Hematocri ton 07-10-2024 Hematocrit (Bld) [Volume fraction] 22.7 % Low 40-54 [facility] Comment on above: Performed By: #### L 100.0600 ####[facility] [address] [place], [address] Hemoglobin (Bld) [Mass/Vol] 7.6 g/dL Low 13.0-16.5 [facility] Comment on above: Performed By: #### L 100.0600 ####[facility] [address] [place], [address] Stool Occult Blood iFOBon STOB Normal [facility] Comment on above: Performed By: #### M 100.7900 ####[facility] [address] [place], [address] CBC W/Diff, Automatedon 06-13 Anisocytosis Ql (Bld) 3+ Normal [facility] Comment on above: Performed By: #### L 100.0100, L500.4050 ####[facility] [address] [place], [address] PLT EST SLT DEC Normal ADEQ [facility] Comment on above: Performed By: #### L 100.0100, L500.4050 ####[facility] [address] [place], [address] Comprehensive Metabolic Prof ilon 07-09-2024 Albumin [Mass/Vol] 3.5 g/dL Normal 3.4-4.8 [facility] Comment on above: Performed By: #### L 100.0100, L500.4050 ####[facility] [address] [place], [address] Albumin/Globulin [Mass ratio] 1.5 {ratio} Normal 0.9-2.4 [facility] Comment on above: Performed By: #### L 100.0100, L500.4050 ####[facility] [address] [place], [address] ALK PHOS 98 U/L Normal 40-129 [facility] Comment on above: Performed By: #### L 100.0100, L500.4050 ####[facility] [address] [place], [address] ALT [Catalytic activity/Vol] 17 U/L Normal <=46 [facility] Comment on above: Performed By: #### L 100.0100, L500.4050 ####[facility] [address] [place], [address] AST [Catalytic activity/Vol] 17 U/L Normal <=37 [facility] Comment on above: Performed By: #### L 100.0100, L500.4050 ####[facility] [address] [place], [address] Bilirubin [Mass/Vol] 0.50 mg/dL Normal 0.00-1.30 [facility] Comment on above: Performed By: #### L 100.0100, L500.4050 ####[facility] [address] [place], [address] BUN/CRE 15.0 RATIO Normal 10-20 [facility] Comment on above: Performed By: #### L 100.0100, L500.4050 ####[facility] [address] [place], [address] Calcium [Mass/Vol] 9.7 mg/dL Normal 7.6-11.0 [facility] Comment on above: Performed By: #### L 100.0100, L500.4050 ####[facility] [address] [place], [address] Chloride [Moles/Vol] 107 mmol/L Normal 98-108 [facility] Comment on above: Performed By: #### L 100.0100, L500.4050 ####[facility] [address] [place], [address] CO2 [Moles/Vol] 20.9 mmol/L Low 21.0-32.0 [facility] Comment on above: Performed By: #### L 100.0100, L500.4050 ####[facility] [address] [place], [address] Creatinine [Mass/Vol] 1.75 mg/dL High 0.70-1.20 [facility] Comment on above: Performed By: #### L 100.0100, L500.4050 ####[facility] [address] [place], [address] ECRCL 39.28 ml/min Low 50-250 [facility] Comment on above: Performed By: #### L 100.0100, L500.4050 ####[facility] [address] [place], [address] GAP 11 Normal 5-15 [facility] Comment on above: Performed By: #### L 100.0100, L500.4050 ####[facility] [address] [place], [address] GFR/1.73 sq M.predicted among non-blacks MDRD (S/P/Bld) [Vol rate/Area] 41 mL/min/{1.73_m2} Low >60 [facility] Comment on above: Result Comment: mL/m in/1.73m2 CKD-EPI Creatinine Equation (2020) Performed By: #### L 100.0100, L500.4050 ####[facility] [address] [place], [address] Globulin (S) [Mass/Vol] 2.3 g/dL Normal 2.2-4.2 [facility] Comment on above: Performed By: #### L 100.0100, L500.4050 ####[facility] [address] [place], [address] Glucose [Mass/Vol] 110 mg/dL High 70-99 [facility] Comment on above: Performed By: #### L 100.0100, L500.4050 ####[facility] [address] [place], [address] Potassium [Moles/Vol] 5.1 mmol/L Normal 3.3-5.1 [facility] Comment on above: Performed By: #### L 100.0100, L500.4050 ####[facility] [address] [place], [address] Sodium [Moles/Vol] 140 mmol/L Normal 133-145 [facility] Comment on above: Performed By: #### L 100.0100, L500.4050 ####[facility] [address] [place], [address] T PROT 5.8 g/dL Low 5.9-8.4 [facility] Comment on above: Performed By: #### L 100.0100, L500.4050 ####[facility] [address] [place], [address] Urea nitrogen [Mass/Vol] 26 mg/dL High 4-19 [facility] Comment on above: Performed By: #### L 100.0100, L500.4050 ####[facility] [address] [place], [address] CBC W/Diff, Automatedon 03- PATH REV N/A Normal [facility] Comment on above: Result Comment: AMENDED REPORT 07/06/24 1049 PATH REV previously reported as: August Performed By: #### L 500.2500, L100.0100 ####[facility] [address] [place], [address] Basic Metabolic Profile (BMP )on 07-02-2024 BUN/CRE 28.5 RATIO High 10-20 [facility] Comment on above: Performed By: #### L 500.2500, L100.0100 ####[facility] [address] [place], [address] Calcium [Mass/Vol] 9.9 mg/dL Normal 7.6-11.0 [facility] Comment on above: Performed By: #### L 500.2500, L100.0100 ####[facility] [address] [place], [address] Chloride [Moles/Vol] 105 mmol/L Normal 98-108 [facility] Comment on above: Performed By: #### L 500.2500, L100.0100 ####[facility] [address] [place], [address] CO2 [Moles/Vol] 21.1 mmol/L Normal 21.0-32.0 [facility] Comment on above: Performed By: #### L 500.2500, L100.0100 ####[facility] [address] [place], [address] Creatinine [Mass/Vol] 1.55 mg/dL High 0.70-1.20 [facility] Comment on above: Performed By: #### L 500.2500, L100.0100 ####[facility] [address] [place], [address] ECRCL 44.35 ml/min Low 50-250 [facility] Comment on above: Performed By: #### L 500.2500, L100.0100 ####[facility] [address] [place], [address] GAP 14 Normal 5-15 [facility] Comment on above: Performed By: #### L 500.2500, L100.0100 ####[facility] [address] [place], [address] GFR/1.73 sq M.predicted among non-blacks MDRD (S/P/Bld) [Vol rate/Area] 48 mL/min/{1.73_m2} Low >60 [facility] Comment on above: Result Comment: mL/m in/1.73m2 CKD-EPI Creatinine Equation (2020) Performed By: #### L 500.2500, L100.0100 ####[facility] [address] [place], [address] Glucose [Mass/Vol] 85 mg/dL Normal 70-99 [facility] Comment on above: Performed By: #### L 500.2500, L100.0100 ####[facility] [address] [place], [address] Potassium [Moles/Vol] 5.1 mmol/L Normal 3.3-5.1 [facility] Comment on above: Performed By: #### L 500.2500, L100.0100 ####[facility] [address] [place], [address] Sodium [Moles/Vol] 139 mmol/L Normal 133-145 [facility] Comment on above: Performed By: #### L 500.2500, L100.0100 ####[facility] [address] [place], [address] Urea nitrogen [Mass/Vol] 44 mg/dL High 4-19 [facility] Comment on above: Performed By: #### L 500.2500, L100.0100 ####[facility] [address] [place], [address] Basic Metabolic Profile (BMP )on 06-24-2024 EST GFR - AA TNP Normal >60 [facility] Comment on above: Performed By: #### L 500.2500, L100.0100 ####[facility] [address] [place], [address] Respiratory Cultureon 2024 RESPC Normal [facility] Comment on above: Performed By: #### M 100.1999, M100.2400 ####[facility] [address] [place], [address] Basic Metabolic Profile (BMP )on 06-17-2024 EST GFR - AA TNP Normal >60 [facility] Comment on above: Performed By: #### L 500.2499, L100.0100 ####[facility] [address] [place], [address] Chest without Contraston Chest without Contrast Normal [facility] Gram Stainon 06-16-2024 GS Acceptable Specimen? Yes (<25 Epithelial cells per/lpf) Gram Stain 1+ Gram negative rods 2+ Gram positive cocci Rare White Blood Cells Rare Epithelial cells Normal [facility] Comment on above: Performed By: #### M 100.1999, M100.2400 ####[facility] [address] [place], [address] COVID 19 AG RAPID (RN COLLEC T)on 06-15-2024 SARS-CoV-2 (COVID-19) RNA MYA+probe Ql (Unsp spec) Normal [facility] Comment on above: Performed By: #### M 100.505 ####[facility] [address] [place], [address] Chest PA and Lateralon 06-15 Chest PA and Lateral Normal [facility] MR/BMS.BPon 06-15-2024 MR/BMS.BP Normal [facility] RESPIRATORY PANEL MOLECULARo n 06-15-2024 RP PANEL Normal [facility] Comment on above: Performed By: #### M 100.638 ####[facility] [address] [place], [address] Basic Metabolic Profile (BMP )on 06-10-2024 Chloride [Moles/Vol] 104 mmol/L Normal 98-107 [facility] Comment on above: Performed By: #### L 100.0100, L500.2500 ####[facility] [address] [place], [address] CO2 [Moles/Vol] 21.2 mmol/L Normal 21.0-32.0 [facility] Comment on above: Performed By: #### L 100.0100, L500.2500 ####[facility] [address] [place], [address] GAP 14 Normal 5-15 [facility] Comment on above: Performed By: #### L 100.0100, L500.2500 ####[facility] [address] [place], [address] Calcium [Mass/Vol] 9.5 mg/dL Normal 7.6-11.0 [facility] Comment on above: Performed By: #### L 100.0100, L500.2500 ####[facility] [address] [place], [address] EST GFR - AA TNP Normal >60 [facility] Comment on above: Performed By: #### L 100.0100, L500.2500 ####[facility] [address] [place], [address] Potassium [Moles/Vol] 4.9 mmol/L Normal 3.5-5.1 [facility] Comment on above: Performed By: #### L 100.0100, L500.2500 ####[facility] [address] [place], [address] Sodium [Moles/Vol] 139 mmol/L Normal 136-145 [facility] Comment on above: Performed By: #### L 100.0100, L500.2500 ####[facility] [address] [place], [address] CBC W/Diff, Automatedon 05-16 Anisocytosis Ql (Bld) 2+ Normal [facility] Comment on above: Performed By: #### L 100.0100, L500.2500 ####[facility] [address] [place], [address] SMUDGE CELLS 2+ Normal [facility] Comment on above: Performed By: #### L 100.0100, L500.2500 ####[facility] [address] [place], [address] TOXIC GRAN 1+ Normal [facility] Comment on above: Performed By: #### L 100.0100, L500.2500 ####[facility] [address] [place], [address] Basic Metabolic Profile (BMP )on 06-08-2024 Anion gap [Moles/Vol] 12 mmol/L Normal 5-15 [facility] Comment on above: Performed By: #### L 500.2500 ####[facility] [address] [place], [address] BUN/CRE 18.0 RATIO Normal 10-20 [facility] Comment on above: Performed By: #### L 500.2500 ####[facility] [address] [place], [address] Calcium [Mass/Vol] 9.8 mg/dL Normal 7.6-11.0 [facility] Comment on above: Performed By: #### L 500.2500 ####[facility] [address] [place], [address] Chloride [Moles/Vol] 103 mmol/L Normal 96-108 [facility] Comment on above: Performed By: #### L 500.2500 ####[facility] [address] [place], [address] CO2 [Moles/Vol] 22.0 mmol/L Normal 22.0-29.0 [facility] Comment on above: Performed By: #### L 500.2500 ####[facility] [address] [place], [address] Creatinine [Mass/Vol] 1.6 mg/dL High 0.8-1.3 [facility] Comment on above: Performed By: #### L 500.2500 ####[facility] [address] [place], [address] ECRCL 42.96 ml/min Normal [facility] Comment on above: Performed By: #### L 500.2500 ####[facility] [address] [place], [address] GFR/1.73 sq M.predicted among non-blacks MDRD (S/P/Bld) [Vol rate/Area] 47 mL/min/{1.73_m2} Low >60 [facility] Comment on above: Result Comment: mL/m in/1.73m2 CKD-EPI Creatinine Equation (2020) Performed By: #### L 500.2500 ####[facility] [address], [address] Glucose [Mass/Vol] 80 mg/dL Normal 70-99 [facility] Comment on above: Performed By: #### L 500.2500 ####[facility] [address] [place], [address] Potassium [Moles/Vol] 4.9 mmol/L Normal 3.3-5.1 [facility] Comment on above: Performed By: #### L 500.2500 ####[facility] [address] [place], [address] Sodium [Moles/Vol] 137 mmol/L Normal 133-145 [facility] Comment on above: Performed By: #### L 500.2500 ####[facility] [address] [place], [address] Urea nitrogen [Mass/Vol] 28 mg/dL High 4-19 [facility] Comment on above: Performed By: #### L 500.2500 ####[facility] [address] [place], [address] BUN Normal 7-18 [facility] Comment on above: Result Comment: PUTT ING UNDER DIFFERENT REQ Performed By: #### L 500.2500, L100.0500, L100.4500 ####[facility] [address] [place], [address] BUN/CRE Normal 10-20 [facility] Comment on above: Result Comment: PUTT ING UNDER DIFFERENT REQ Performed By: #### L 500.2500, L100.0500, L100.4500 ####[facility] [address] [place], [address] Calcium Normal 8.5-10.1 [facility] Comment on above: Result Comment: PUTT ING UNDER DIFFERENT REQ Performed By: #### L 500.2500, L100.0500, L100.4500 ####[facility] [address] [place], [address] CL Normal 98-107 [facility] Comment on above: Result Comment: PUTT ING UNDER DIFFERENT REQ Performed By: #### L 500.2500, L100.0500, L100.4500 ####[facility] [address] [place], [address] CO2 Normal 21.0-32.0 [facility] Comment on above: Result Comment: PUTT ING UNDER DIFFERENT REQ Performed By: #### L 500.2500, L100.0500, L100.4500 ####[facility] [address] [place], [address] CREAT,SERUM Normal 0.70-1.30 [facility] Comment on above: Result Comment: PUTT ING UNDER DIFFERENT REQ Performed By: #### L 500.2500, L100.0500, L100.4500 ####[facility] [address] [place], [address] eGFR Normal >60 [facility] Comment on above: Result Comment: PUTT ING UNDER DIFFERENT REQ Performed By: #### L 500.2500, L100.0500, L100.4500 ####[facility] [address] [place], [address] EST GFR - AA Normal >60 [facility] Comment on above: Result Comment: PUTT ING UNDER DIFFERENT REQ Performed By: #### L 500.2500, L100.0500, L100.4500 ####[facility] [address] [place], [address] GAP Normal 5-15 [facility] Comment on above: Result Comment: PUTT ING UNDER DIFFERENT REQ Performed By: #### L 500.2500, L100.0500, L100.4500 ####[facility] [address] [place], [address] GLU Normal 74-106 [facility] Comment on above: Result Comment: PUTT ING UNDER DIFFERENT REQ Performed By: #### L 500.2500, L100.0500, L100.4500 ####[facility] [address] [place], [address] Potassium Normal 3.5-5.1 [facility] Comment on above: Result Comment: PUTT ING UNDER DIFFERENT REQ Performed By: #### L 500.2500, L100.0500, L100.4500 ####[facility] [address] [place], [address] Basic Metabolic Profile (BMP) Normal 136-145 [facility] Comment on above: Result Comment: PUTT ING UNDER DIFFERENT REQ Performed By: #### L 500.2500, L100.0500, L100.4500 ####[facility] [address] [place], [address] CBC-Complete Blood Cnt No Di ffon 06-08-2024 Hematocrit (Bld) [Volume fraction] 34.2 % Low 40-54 [facility] Comment on above: Performed By: #### L 500.2500, L100.0500, L100.4500 ####[facility] [address] [place], [address] Hemoglobin (Bld) [Mass/Vol] 10.7 g/dL Low 13.0-16.5 [facility] Comment on above: Performed By: #### L 500.2500, L100.0500, L100.4500 ####[facility] [address] [place], [address] MCH (RBC) [Entitic mass] 35.9 pg High 27.0-32.0 [facility] Comment on above: Performed By: #### L 500.2500, L100.0500, L100.4500 ####[facility] [address] [place], [address] MCHC (RBC) [Mass/Vol] 31.3 g/dL Low 32-36 [facility] Comment on above: Performed By: #### L 500.2500, L100.0500, L100.4500 ####[facility] [address] [place], [address] MCV (RBC) [Entitic vol] 114.8 fL High 80-94 [facility] Comment on above: Performed By: #### L 500.2500, L100.0500, L100.4500 ####[facility] [address] [place], [address] Platelet mean volume (Bld) [Entitic vol] 9.2 fL Normal 6.2-12.0 [facility] Comment on above: Performed By: #### L 500.2500, L100.0500, L100.4500 ####[facility] [address] [place], [address] Platelets (Bld) [#/Vol] 344 10*3/uL Normal 150-450 [facility] Comment on above: Performed By: #### L 500.2500, L100.0500, L100.4500 ####[facility] [address] [place], [address] RBC (Bld) [#/Vol] 2.98 10*6/uL Low 4.6-6.2 [facility] Comment on above: Performed By: #### L 500.2500, L100.0500, L100.4500 ####[facility] [address] [place], [address] WBC (Bld) [#/Vol] 28.7 10*3/uL High 4.4-11.0 [facility] Comment on above: Performed By: #### L 500.2500, L100.0500, L100.4500 ####[facility] [address] [place], [address] Differential Commenton 06-08 SMEAR COMMENT COMMENT Normal [facility] Comment on above: Result Comment: DIMO RPHIC RBC POPULATION SEEN ON SLIDE REVIEW. Performed By: #### L 500.2500, L100.0500, L100.4500 ####[facility] [address] [place], [address] Modified Barium Swallow Stud yon 06-04-2024 Modified Barium Swallow Study Normal [facility] Basic Metabolic Profile (BMP )on 06-03-2024 BUN/CRE 26.5 RATIO High 10-20 [facility] Comment on above: Performed By: #### L 100.0100, L500.2500 ####[facility] [address] [place], [address] CA,Total 9.5 mg/dL Normal 8.5-10.1 [facility] Comment on above: Performed By: #### L 100.0100, L500.2500 ####[facility] [address] [place], [address] Chloride [Moles/Vol] 103 mmol/L Normal 98-107 [facility] Comment on above: Performed By: #### L 100.0100, L500.2500 ####[facility] [address] [place], [address] CO2 [Moles/Vol] 25.0 mmol/L Normal 21.0-32.0 [facility] Comment on above: Performed By: #### L 100.0100, L500.2500 ####[facility] [address] [place], [address] Creatinine [Mass/Vol] 1.70 mg/dL High 0.70-1.30 [facility] Comment on above: Result Comment: The validity of the calculated GFR GFRAA in patients over70 years has not been determined. Clinical correlation isessential. Performed By: #### L 100.0100, L500.2500 ####[facility] [address] [place], [address] ECRCL 40.43 ml/min Normal [facility] Comment on above: Performed By: #### L 100.0100, L500.2500 ####[facility] [address] [place], [address] EST GFR - AA 51 mL/min Low >60 [facility] Comment on above: Result Comment: Afri can [place] GFR Calc Performed By: #### L 100.0100, L500.2500 ####[facility] [address] [place], [address] GAP 9 Normal 5-15 [facility] Comment on above: Performed By: #### L 100.0100, L500.2500 ####[facility] [address] [place], [address] GFR/1.73 sq M.predicted among non-blacks MDRD (S/P/Bld) [Vol rate/Area] 43 mL/min/{1.73_m2} Low >60 [facility] Comment on above: Result Comment: Non- GFR Calc Performed By: #### L 100.0100, L500.2500 ####[facility] [address] [place], [address] Glucose [Mass/Vol] 120 mg/dL High 74-106 [facility] Comment on above: Result Comment: Fast ing Glucose result from 100 to 125 mg/dLsuggests IMPAIRED HOMEOSTASIS per A.D.A. criteria. Performed By: #### L 100.0100, L500.2500 ####[facility] [address] [place], [address] Potassium [Moles/Vol] 4.6 mmol/L Normal 3.5-5.1 [facility] Comment on above: Performed By: #### L 100.0100, L500.2500 ####[facility] [address] [place], [address] Sodium [Moles/Vol] 137 mmol/L Normal 136-145 [facility] Comment on above: Performed By: #### L 100.0100, L500.2500 ####[facility] [address] [place], [address] Urea nitrogen [Mass/Vol] 45 mg/dL High 7-18 [facility] Comment on above: Performed By: #### L 100.0100, L500.2500 ####[facility] [address] [place], [address] CBC W/Diff, Automatedon 05-16 PATH REV Reviewed Normal [facility] Comment on above: Result Comment: Abso lute lymphocytosis suggestive of low grade lympho-proliferative disorder.Macrocytic anemia.Clinical correlation is necessary.Prashanth Machado M.D. 06/03/24 AMENDED REPORT 06/03/24 1423 PATH REV previously reported as: August Performed By: #### L 100.0100, L500.2500 ####[facility] [address] [place], [address] Consultation - Infectious Dx on 06-03-2024 Consultation - Infectious Dx Normal [facility] Consultation - Surgicalon Consultation - Surgical Normal [facility] HH, Hemoglobin AND Hematocri ton 06-03-2024 Hematocrit (Bld) [Volume fraction] 31.5 % Low 40-54 [facility] Comment on above: Performed By: #### L 100.0600 ####[facility] [address] [place], [address] Hemoglobin (Bld) [Mass/Vol] 10.5 g/dL Low 13.0-16.5 [facility] Comment on above: Performed By: #### L 100.0600 ####[facility] [address] [place], [address] Venous Duplex US, Unilateral on 06-03-2024 Venous Duplex US, Unilateral Normal [facility] Abdomen/Pelvis WITH Contrast on 06-02-2024 Abdomen/Pelvis WITH Contrast Normal [facility] COVID 19 AG RAPID (RN COLLEKarsten T)on 06-02-2024 SARS-CoV-2 (COVID-19) RNA MYA+probe Ql (Unsp spec) Normal [facility] Comment on above: Performed By: #### M 100.505 ####[facility] [address] [place], [address] Consultation - Urologyon Consultation - Urology Normal [facility] Respiratory Cultureon 2024 RESPC Normal [facility] Comment on above: Performed By: #### M 100.2400, M100.2000 ####[facility] [address] [place], [address] BRCon 06-01-2024 RC Normal [facility] Comment on above: Result Comment: [id number] BN RC TRANSFUSED 06/02/24 [id number] BN RC TRANSFUSED 06/02/24 1507 Performed By: #### B RC, BTS ####[facility] [address] [place], [address] HH, Hemoglobin AND Hematocri ton 06-01-2024 Hematocrit (Bld) [Volume fraction] 24.2 % Low 40-54 [facility] Comment on above: Performed By: #### L 100.0600 ####[facility] [address] [place], [address] Hemoglobin (Bld) [Mass/Vol] 7.7 g/dL Low 13.0-16.5 [facility] Comment on above: Performed By: #### L 100.0600 ####[facility] [address] [place], [address] MR/CON.PCM.GIon 06-01-2024 MR/CON.PCM.GI Normal [facility] Type AND Screenon 06-01-2024 Ab SCREEN GEL Negative Normal [facility] Comment on above: Order Comment: CMV N EG? NNumber of units to transfuse: 2Reason for Ordering Blood: AcuteAre the blood/blood products to be transfused? YIs the patient having/had surgery? YWhen ReadyNYFRACTURED HIP Performed By: #### B RC, BTS ####[facility] [address] [place], [address] CBC W/Diff, Automatedon 05-15 PATH REV Reviewed Normal [facility] Comment on above: Result Comment: Abso lute lymphocytosis suggestive of low grade lympho-proliferative disorder.Macrocytic anemia.Clinical correlation is necessary.Prashanth Machado M.D. 05/31/24 AMENDED REPORT 05/31/24 1608 PATH REV previously reported as: August Performed By: #### L 100.0100 ####[facility] [address] [place], [address] HH, Hemoglobin AND Hematocri ton 05-31-2024 Hematocrit (Bld) [Volume fraction] 25.3 % Low 40-54 [facility] Comment on above: Performed By: #### L 100.0600 ####[facility] [address] [place], [address] Hemoglobin (Bld) [Mass/Vol] 8.2 g/dL Low 13.0-16.5 [facility] Comment on above: Performed By: #### L 100.0600 ####[facility] [address] [place], [address] HIP, UNI W/ Pelvis 2-3 Views on 05-31-2024 HIP, UNI W/ Pelvis 2-3 Views Normal [facility] Stool Occult Blood iFOBon STOB Normal [facility] Comment on above: Performed By: #### M 100.7900 ####[facility] [address] [place], [address] Gram Stainon 05-30-2024 GS List Antibiotics [place] 48 Hours? none List Antibiotics to be Started? cefdinir, zithromax Acceptable Specimen? Yes (<25 Epithelial cells per/lpf) Gram Stain 2+ White Blood Cells 2+ Gram negative rods Rare Yeast Like Organisms Rare Epithelial cells Normal [facility] Comment on above: Performed By: #### M 100.2400, M100.2000 ####[facility] [address] [place], [address] HH, Hemoglobin AND Hematocri ton 05-30-2024 Hematocrit (Bld) [Volume fraction] 26.2 % Low 40-54 [facility] Comment on above: Performed By: #### L 100.0600 ####[facility] [address] [place], [address] Hemoglobin (Bld) [Mass/Vol] 8.5 g/dL Low 13.0-16.5 [facility] Comment on above: Performed By: #### L 100.0600 ####[facility] [address] [place], [address] RESPIRATORY PANEL MOLECULARo n 05-30-2024 RP PANEL Normal [facility] Comment on above: Performed By: #### M 100.638 ####[facility] [address] [place], [address] Basic Metabolic Profile (BMP )on 05-29-2024 BUN/CRE 21.9 RATIO High 10-20 [facility] Comment on above: Performed By: #### L 500.2500 ####[facility] [address] [place], [address] CA,Total 9.3 mg/dL Normal 8.5-10.1 [facility] Comment on above: Performed By: #### L 500.2500 ####[facility] [address] [place], [address] Chloride [Moles/Vol] 105 mmol/L Normal 98-107 [facility] Comment on above: Performed By: #### L 500.2500 ####[facility] [address] [place], [address] CO2 [Moles/Vol] 20.0 mmol/L Low 21.0-32.0 [facility] Comment on above: Performed By: #### L 500.2500 ####[facility] [address] [place], [address] Creatinine [Mass/Vol] 1.51 mg/dL High 0.70-1.30 [facility] Comment on above: Result Comment: The validity of the calculated GFR GFRAA in patients over70 years has not been determined. Clinical correlation isessential. Performed By: #### L 500.2500 ####[facility] [address] [place], [address] ECRCL 45.52 ml/min Normal [facility] Comment on above: Performed By: #### L 500.2500 ####[facility] [address] [place], [address] EST GFR - AA 59 mL/min Low >60 [facility] Comment on above: Result Comment: Afri can [place] GFR Calc Performed By: #### L 500.2500 ####[facility] [address] [place], [address] GAP 9 Normal 5-15 [facility] Comment on above: Performed By: #### L 500.2500 ####[facility] [address] [place], [address] GFR/1.73 sq M.predicted among non-blacks MDRD (S/P/Bld) [Vol rate/Area] 49 mL/min/{1.73_m2} Low >60 [facility] Comment on above: Result Comment: Non- GFR Calc Performed By: #### L 500.2500 ####[facility] [address] [place], [address] Glucose [Mass/Vol] 132 mg/dL High 74-106 [facility] Comment on above: Result Comment: Fast ing Glucose result greater than or equal to 126 mg/dLsuggests DIABETES MELLITUS per A.D.A. criteria. Performed By: #### L 500.2500 ####[facility] [address] [place], [address] Potassium [Moles/Vol] 4.3 mmol/L Normal 3.5-5.1 [facility] Comment on above: Performed By: #### L 500.2500 ####[facility] [address] [place], [address] Sodium [Moles/Vol] 134 mmol/L Low 136-145 [facility] Comment on above: Performed By: #### L 500.2500 ####[facility] [address] [place], [address] Urea nitrogen [Mass/Vol] 33 mg/dL High 7-18 [facility] Comment on above: Performed By: #### L 500.2500 ####[facility] [address] [place], [address] CBC W/Diff, Automatedon 05-15 Absolute Neut Normal 2.0-7.7 [facility] Comment on above: Result Comment: Canc elled via OM: Duplicate Order Performed By: #### L 100.0100 ####[facility] [address] [place], [address] HCT Normal 40-54 [facility] Comment on above: Result Comment: Canc elled via OM: Duplicate Order Performed By: #### L 100.0100 ####[facility] [address] [place], [address] HGB Normal 13.0-16.5 [facility] Comment on above: Result Comment: Canc elled via OM: Duplicate Order Performed By: #### L 100.0100 ####[facility] [address] [place], [address] MCH Normal 27.0-32.0 [facility] Comment on above: Result Comment: Canc elled via OM: Duplicate Order Performed By: #### L 100.0100 ####[facility] [address] [place], [address] MCHC Normal 32-36 [facility] Comment on above: Result Comment: Canc elled via OM: Duplicate Order Performed By: #### L 100.0100 ####[facility] [address] [place], [address] MCV Normal 80-94 [facility] Comment on above: Result Comment: Canc elled via OM: Duplicate Order Performed By: #### L 100.0100 ####[facility] [address] [place], [address] NEUT% Normal 47-70 [facility] Comment on above: Result Comment: Canc elled via OM: Duplicate Order Performed By: #### L 100.0100 ####[facility] [address] [place], [address] PLT Normal 150-450 [facility] Comment on above: Result Comment: Canc elled via OM: Duplicate Order Performed By: #### L 100.0100 ####[facility] [address] [place], [address] RBC Normal 4.6-6.2 [facility] Comment on above: Result Comment: Canc elled via OM: Duplicate Order Performed By: #### L 100.0100 ####[facility] [address] [place], [address] RDW CV Normal 11.6-14.6 [facility] Comment on above: Result Comment: Canc elled via OM: Duplicate Order Performed By: #### L 100.0100 ####[facility] [address] [place], [address] RDW SD Normal 35.1-43.9 [facility] Comment on above: Result Comment: Canc elled via OM: Duplicate Order Performed By: #### L 100.0100 ####[facility] [address] [place], [address] WBC Normal 4.4-11.0 [facility] Comment on above: Result Comment: Bettina naranjo via OM: Duplicate Order Performed By: #### L 100.0100 ####[facility] [address] [place], [address] COVID 19 AG RAPID (RN PATRICIO Carey)on 05-29-2024 SARS-CoV-2 (COVID-19) RNA MYA+probe Ql (Unsp spec) Normal [facility] Comment on above: Performed By: #### M 100.505 ####[facility] [address] [place], [address] Chest PA and Lateralon 05-29 Chest PA and Lateral Normal [facility] HH, Hemoglobin AND Hematocri ton 05-29-2024 Hematocrit (Bld) [Volume fraction] 25.2 % Low 40-54 [facility] Comment on above: Performed By: #### L 100.0600 ####[facility] [address] [place], [address] Hemoglobin (Bld) [Mass/Vol] 8.3 g/dL Low 13.0-16.5 [facility] Comment on above: Performed By: #### L 100.0600 ####[facility] [address] [place], [address] HIP, UNI W/ Pelvis 2-3 Views on 05-29-2024 HIP, UNI W/ Pelvis 2-3 Views Normal [facility] Iron+Iron Binding Capacityon 05-29-2024 Iron [Mass/Vol] 29 ug/dL Low 65-175 [facility] Comment on above: Performed By: #### L 503.6030 ####[facility] [address] [place], [address] IRON SATURATION 10.2 Low 15.0-55.0 [facility] Comment on above: Performed By: #### L 503.6030 ####[facility] [address] [place], [address] TIBC 283 ug/dL Normal 250-450 [facility] Comment on above: Performed By: #### L 503.6030 ####[facility] [address] [place], [address] HH, Hemoglobin AND Hematocri ton 05-28-2024 Hematocrit (Bld) [Volume fraction] 27.5 % Low 40-54 [facility] Comment on above: Performed By: #### L 100.0600 ####[facility] [address] [place], [address] Hemoglobin (Bld) [Mass/Vol] 8.9 g/dL Low 13.0-16.5 [facility] Comment on above: Performed By: #### L 100.0600 ####[facility] [address] [place], [address] L7000.0750on 05-28-2024 P ELASTASE,FECA 315 Normal >200 [facility] Comment on above: Result Comment: Resu lt Units: ug Elast./g Severe Pancreatic Insufficiency: <100 Moderate Pancreatic Insufficiency: 100 - 200 Normal: >200 Performed By: #### L 7000.0750, L7000.0300, L7000.0700 ####[facility] [address] [place], [address] Basic Metabolic Profile (BMP )on 05-27-2024 BUN/CRE 22.3 RATIO High 10-20 [facility] Comment on above: Performed By: #### L 500.2500, L100.0100 ####[facility] [address] [place], [address] CA,Total 8.7 mg/dL Normal 8.5-10.1 [facility] Comment on above: Performed By: #### L 500.2500, L100.0100 ####[facility] [address] [place], [address] Chloride [Moles/Vol] 108 mmol/L High 98-107 [facility] Comment on above: Performed By: #### L 500.2500, L100.0100 ####[facility] [address] [place], [address] CO2 [Moles/Vol] 24.0 mmol/L Normal 21.0-32.0 [facility] Comment on above: Performed By: #### L 500.2500, L100.0100 ####[facility] [address] [place], [address] Creatinine [Mass/Vol] 1.48 mg/dL High 0.70-1.30 [facility] Comment on above: Result Comment: The validity of the calculated GFR GFRAA in patients over70 years has not been determined. Clinical correlation isessential. Performed By: #### L 500.2500, L100.0100 ####[facility] [address] [place], [address] EST GFR - AA 60 mL/min Normal >60 [facility] Comment on above: Result Comment: Afri can [place] GFR Calc Performed By: #### L 500.2500, L100.0100 ####[facility] [address] [place], [address] GAP 8 Normal 5-15 [facility] Comment on above: Performed By: #### L 500.2500, L100.0100 ####[facility] [address] [place], [address] GFR/1.73 sq M.predicted among non-blacks MDRD (S/P/Bld) [Vol rate/Area] 50 mL/min/{1.73_m2} Low >60 [facility] Comment on above: Result Comment: Non- GFR Calc Performed By: #### L 500.2500, L100.0100 ####[facility] [address] [place], [address] Glucose [Mass/Vol] 89 mg/dL Normal 74-106 [facility] Comment on above: Performed By: #### L 500.2500, L100.0100 ####[facility] [address] [place], [address] Potassium [Moles/Vol] 4.1 mmol/L Normal 3.5-5.1 [facility] Comment on above: Performed By: #### L 500.2500, L100.0100 ####[facility] [address] [place], [address] Sodium [Moles/Vol] 139 mmol/L Normal 136-145 [facility] Comment on above: Performed By: #### L 500.2500, L100.0100 ####[facility] [address] [place], [address] Urea nitrogen [Mass/Vol] 33 mg/dL High 7-18 [facility] Comment on above: Performed By: #### L 500.2500, L100.0100 ####[facility] [address] [place], [address] CBC W/Diff, Automatedon 05-15 PATH REV Reviewed Normal [facility] Comment on above: Result Comment: Abso lute lymphocytosis suggestive of low grade lympho-proliferative disorder.Macrocytic anemia.Clinical correlation is necessary.Prashanth Machado M.D. 05/27/24 AMENDED REPORT 05/27/24 1504 PATH REV previously reported as: August kathe Performed By: #### L 500.2500, L100.0100 ####[facility] [address] [place], [address] .GFRon 05-26-2024 Estimated Glomerular Filtration Rate 52 ml/min/1.73sqm Normal [facility] Comment on above: Result Comment: Stages [...] D IFF, GFR, BMP, MORPH, CBC #### [place] [address] .Manual Diffon 05-26-2024 Basophil %, Manual 0.0 % Normal 0.0-2.5 [facility] Comment on above: Performed By: #### D IFF, GFR, BMP, MORPH, CBC #### [place] [address] Basophil, Abs Manual 0.0 10 3/mcL Normal 0.0-0.[address] [facility] Comment on above: Performed By: #### D IFF, GFR, BMP, MORPH, CBC #### [place] [address] Eosinophil %, Manual 0.0 % Normal 0.0-6.0 [facility] Comment on above: Performed By: #### D IFF, GFR, BMP, MORPH, CBC #### [place] [address] Eosinophil, Abs Manual 0.0 10 3/mcL Normal 0.0-0.7 [facility] Comment on above: Performed By: #### D IFF, GFR, BMP, MORPH, CBC #### [place] [address] Lymphocyte %, Manual 90.0 % High 20.0-40.0 [facility] Comment on above: Performed By: #### D IFF, GFR, BMP, MORPH, CBC #### [place] [address] Lymphocyte, Abs Manual 15.9 10 3/mcL High 0.9-4.3 [facility] Comment on above: Performed By: #### D IFF, GFR, BMP, MORPH, CBC #### [place] [address] Monocyte %, Manual 0.0 % Low 2.0-13.0 [facility] Comment on above: Performed By: #### D IFF, GFR, BMP, MORPH, CBC #### [place] [address] Monocyte, Abs Manual 0.0 10 3/mcL Low 0.1-1.[address] [facility] Comment on above: Performed By: #### D IFF, GFR, BMP, MORPH, CBC #### [place] [address] Neutrophil %, Manual 10.0 % Low 50.0-75.0 [facility] Comment on above: Performed By: #### D IFF, GFR, BMP, MORPH, CBC #### [place] [address] Neutrophil, Abs Manual 1.8 10 3/mcL Low 2.3-8.1 [facility] Comment on above: Performed By: #### D IFF, GFR, BMP, MORPH, CBC #### [place] [address] Nucleated RBC 0.0 /100 WBC Normal [facility] Comment on above: Performed By: #### D IFF, GFR, BMP, MORPH, CBC #### [place] [address] .Morphon 05-26-2024 Anisocytosis Ql (Bld) 2+ Normal [facility] Comment on above: Performed By: #### D IFF, GFR, BMP, MORPH, CBC #### [place] [address] Hypochrom 1+ Normal [facility] Comment on above: Performed By: #### D IFF, GFR, BMP, MORPH, CBC #### [place] [address] Macrocytosis 3+ Normal [facility] Comment on above: Performed By: #### D IFF, GFR, BMP, MORPH, CBC #### [address] [address] Ovalocytes 1+ Normal [facility] Comment on above: Performed By: #### D IFF, GFR, BMP, MORPH, CBC #### [address] [address] Platelet Estimate Normal Normal [facility] Comment on above: Performed By: #### D IFF, GFR, BMP, MORPH, CBC #### [address] [address] Poik 2+ Normal [facility] Comment on above: Performed By: #### D IFF, GFR, BMP, MORPH, CBC #### [address] [address] BMPon 05-26-2024 BUN/Creatinine Ratio 20.1 ratio Normal 10.0-22.0 [facility] Comment on above: Performed By: #### D IFF, GFR, BMP, MORPH, CBC #### [address] [address] Calcium [Mass/Vol] 9.1 mg/dL Normal 8.7-10.4 [facility] Comment on above: Performed By: #### D IFF, GFR, BMP, MORPH, CBC #### [place] [id number] Chloride [Moles/Vol] 108 mmol/L Normal 98-110 [facility] Comment on above: Performed By: #### D IFF, GFR, BMP, MORPH, CBC #### [address] [address] CO2 [Moles/Vol] 25 mmol/L Normal 22-32 [facility] Comment on above: Performed By: #### D IFF, GFR, BMP, MORPH, CBC #### [address] [address] Creatinine [Mass/Vol] 1.44 mg/dL High 0.60-1.40 [facility] Comment on above: Result Comment: Test ing performed on Touchbase analyzer using enzymatic creatinine methodology. Performed By: #### D IFF, GFR, BMP, MORPH, CBC #### [address] [address] Electrolyte Balance 9.0 mEq/L Normal 4.0-15.0 [facility] Comment on above: Performed By: #### D IFF, GFR, BMP, MORPH, CBC #### [address] [address] Glucose [Mass/Vol] 97 mg/dL Normal 82-115 [facility] Comment on above: Performed By: #### D IFF, GFR, BMP, MORPH, CBC #### [place] [address] Potassium [Moles/Vol] 3.9 mmol/L Normal 3.5-5.0 [facility] Comment on above: Performed By: #### D IFF, GFR, BMP, MORPH, CBC #### [place] [id number] Sodium [Moles/Vol] 142 mmol/L Normal 136-145 [facility] Comment on above: Performed By: #### D IFF, GFR, BMP, MORPH, CBC #### [place] [address] Urea nitrogen [Mass/Vol] 29.0 mg/dL High 8.0-22.0 [facility] Comment on above: Performed By: #### D IFF, GFR, BMP, MORPH, CBC #### [address] [address] CBCon 05-26-2024 Erythrocyte distribution width (RBC) [Ratio] 31.3 % High 11.5-15.5 [facility] Comment on above: Performed By: #### D IFF, GFR, BMP, MORPH, CBC #### [address] [address] Hematocrit (Bld) [Volume fraction] 24.3 % Low 40.0-52.0 [facility] Comment on above: Performed By: #### D IFF, GFR, BMP, MORPH, CBC #### [place] [id number] Hgb 8.1 G/dL Low 13.0-17.5 [facility] Comment on above: Performed By: #### D IFF, GFR, BMP, MORPH, CBC #### [place] [address] MCH (RBC) [Entitic mass] 40.6 pg High 27.0-33.0 [facility] Comment on above: Performed By: #### D IFF, GFR, BMP, MORPH, CBC #### [place] [address] MCHC 33.4 G/dL Normal 32.0-36.0 [facility] Comment on above: Performed By: #### D IFF, GFR, BMP, MORPH, CBC #### [place] [address] MCV (RBC) [Entitic vol] 121.5 fL High 81.0-100.0 [facility] Comment on above: Performed By: #### D IFF, GFR, BMP, MORPH, CBC #### [place] [address] Platelet 188 10 3/mcL Normal 150-450 [facility] Comment on above: Performed By: #### D IFF, GFR, BMP, MORPH, CBC #### [place] [address] Platelet mean volume (Bld) [Entitic vol] 7.2 fL Normal 6.4-10.5 [facility] Comment on above: Performed By: #### D IFF, GFR, BMP, MORPH, CBC #### [place] [address] RBC 2.00 10 6/mcL Low 4.50-6.00 [facility] Comment on above: Performed By: #### D IFF, GFR, BMP, MORPH, CBC #### [place] [address] WBC 17.7 10 3/mcL High 4.5-10.8 [facility] Comment on above: Performed By: #### D IFF, GFR, BMP, MORPH, CBC #### [place] [address] Calprotectin, Stoolon [address] 30 ug/g Normal 0-120 [facility] Comment on above: Order Comment: Test( s) [id number], Neutral; [id number]-Pexu, Totalwas developed and its performance characteristicsdetermined by [facility]. It has not been cleared or approvedby the Food and Drug Administration. Result Comment: Conc entration Interpretation Follow-Up< 5 - 50 ug/g Normal None>50 -120 ug/g Borderline Re-evaluate in 4-6 weeks >120 ug/g Abnormal Repeat as clinically indicatedPerformed at: [facility] [address] [id number] Director: Jorge Chatterjee PhD, Phone: [phone] at: [facility] Lab[address] [id number] Director: Danny Shea MD, Phone: [phone] Performed By: #### L 7000.0750, L7000.0300, L7000.0700 ####[facility] [address] [place], [place], [id number] Fecal Fat, Qualitativeon FATS, NEUTRAL Normal Normal . [facility] Comment on above: Order Comment: Test( s) [id number], Neutral; [id number]-Xunm, Totalwas developed and its performance characteristicsdetermined by [employer]. It has not been cleared or approvedby the Food and Drug Administration. Result Comment: Norm al (<60 Droplets/HPF) Performed By: #### L 7000.0750, L7000.0300, L7000.0700 ####[facility] [address] [place], [place], [id number] FATS, TOTAL Normal Normal . [facility] Comment on above: Order Comment: Test( s) [id number], Neutral; [id number]-Zugp, Totalwas developed and its performance characteristicsdetermined by [facility]. It has not been cleared or approvedby the Food and Drug Administration. Result Comment: Norm al (<100 Droplets/HPF) Performed By: #### L 7000.0750, L7000.0300, L7000.0700 ####[facility] [address] [place], [address] LABORATORYOrdered By: SYSTEM SYSTEM on 05-26-2024 Anisocytosis [...] above: Interpretive Data: T esting performed on Touchbase analyzer using enzymatic creatinine methodology. Electrolyte Balance [...] Estimated Glomerular Filtration Rate 58 ml/min/1.73sqm Normal [facility] Comment on above: Result Comment: Stages [...] D IFF, BMP, CBC, GFR, MORPH #### [place] [address] .Manual Diffon 05-25-2024 Basophil %, Manual 0.0 % Normal 0.0-2.5 [facility] Comment on above: Performed By: #### D IFF, BMP, CBC, GFR, MORPH #### [address] [address] Basophil, Abs Manual 0.0 10 3/mcL Normal 0.0-0.[address] [facility] Comment on above: Performed By: #### D IFF, BMP, CBC, GFR, MORPH #### [address] [address] Eosinophil %, Manual 0.0 % Normal 0.0-6.0 [facility] Comment on above: Performed By: #### D IFF, BMP, CBC, GFR, MORPH #### [address] [address] Eosinophil, Abs Manual 0.0 10 3/mcL Normal 0.0-0.7 [facility] Comment on above: Performed By: #### D IFF, BMP, CBC, GFR, MORPH #### [address] [address] Lymphocyte %, Manual 92.0 % High 20.0-40.0 [facility] Comment on above: Performed By: #### D IFF, BMP, CBC, GFR, MORPH #### [address] [address] Lymphocyte, Abs Manual 18.3 10 3/mcL High 0.9-4.3 [facility] Comment on above: Performed By: #### D IFF, BMP, CBC, GFR, MORPH #### [address] [address] Monocyte %, Manual 0.0 % Low 2.0-13.0 [facility] Comment on above: Performed By: #### D IFF, BMP, CBC, GFR, MORPH #### [address] [address] Monocyte, Abs Manual 0.0 10 3/mcL Low 0.1-1.[address] [facility] Comment on above: Performed By: #### D IFF, BMP, CBC, GFR, MORPH #### [address] [address] Neutrophil %, Manual 8.0 % Low 50.0-75.0 [facility] Comment on above: Performed By: #### D IFF, BMP, CBC, GFR, MORPH #### [place] [address] Neutrophil, Abs Manual 1.6 10 3/mcL Low 2.3-8.1 [facility] Comment on above: Performed By: #### D IFF, BMP, CBC, GFR, MORPH #### [place] [address] Nucleated RBC 0.0 /100 WBC Normal [facility] Comment on above: Performed By: #### D IFF, BMP, CBC, GFR, MORPH #### [place] [address] .Morphon 05-25-2024 Anisocytosis Ql (Bld) 2+ Normal [facility] Comment on above: Performed By: #### D IFF, BMP, CBC, GFR, MORPH #### [place] [address] Hypochrom 1+ Normal [facility] Comment on above: Performed By: #### D IFF, BMP, CBC, GFR, MORPH #### [place] [address] Macrocytosis 3+ Normal [facility] Comment on above: Performed By: #### D IFF, BMP, CBC, GFR, MORPH #### [place] [address] Platelet Estimate Normal [facility] Comment on above: Performed By: #### D IFF, BMP, CBC, GFR, MORPH #### [place] [address] Poik 1+ Normal [facility] Comment on above: Performed By: #### D IFF, BMP, CBC, GFR, MORPH #### [place] [address] Polychrom 1+ [facility] Comment on above: Performed By: #### D IFF, BMP, CBC, GFR, MORPH #### [place] [address] Smudge Cells 1+ Normal [facility] Comment on above: Performed By: #### D IFF, BMP, CBC, GFR, MORPH #### [address] [address] Stomatocytes 1+ Normal [facility] Comment on above: Performed By: #### D IFF, BMP, CBC, GFR, MORPH #### [address] [address] Tear Cell 1+ Normal [facility] Comment on above: Performed By: #### D IFF, BMP, CBC, GFR, MORPH #### [address] [address] Differential Comment See Below Normal [facility] Comment on above: Result Comment: Diff erential performed on albumin smear Performed By: #### D IFF, BMP, CBC, GFR, MORPH #### [address] [address] BMPon 05-25-2024 BUN/Creatinine Ratio 17.3 ratio Normal 10.0-22.0 [facility] Comment on above: Performed By: #### D IFF, BMP, CBC, GFR, MORPH #### [address] [address] Calcium [Mass/Vol] 9.1 mg/dL Normal 8.7-10.4 [facility] Comment on above: Performed By: #### D IFF, BMP, CBC, GFR, MORPH #### [address] [address] Chloride [Moles/Vol] 108 mmol/L Normal 98-110 [facility] Comment on above: Performed By: #### D IFF, BMP, CBC, GFR, MORPH #### [address] [address] CO2 [Moles/Vol] 23 mmol/L Normal 22-32 [facility] Comment on above: Performed By: #### D IFF, BMP, CBC, GFR, MORPH #### [address] [address] Creatinine [Mass/Vol] 1.33 mg/dL Normal 0.60-1.40 [facility] Comment on above: Result Comment: Test ing performed on Touchbase analyzer using enzymatic creatinine methodology. Performed By: #### D IFF, BMP, CBC, GFR, MORPH #### [address] [address] Electrolyte Balance 9.0 mEq/L Normal 4.0-15.0 [facility] Comment on above: Performed By: #### D IFF, BMP, CBC, GFR, MORPH #### [address] [address] Glucose [Mass/Vol] 131 mg/dL High 82-115 [facility] Comment on above: Performed By: #### D IFF, BMP, CBC, GFR, MORPH #### [place] [id number] Potassium [Moles/Vol] 4.4 mmol/L Normal 3.5-5.0 [facility] Comment on above: Performed By: #### D IFF, BMP, CBC, GFR, MORPH #### [place] [id number] Sodium [Moles/Vol] 140 mmol/L Normal 136-145 [facility] Comment on above: Performed By: #### D IFF, BMP, CBC, GFR, MORPH #### [place] [id number] Urea nitrogen [Mass/Vol] 23.0 mg/dL High 8.0-22.0 [facility] Comment on above: Performed By: #### D IFF, BMP, CBC, GFR, MORPH #### [address] [address] CBCon 05-25-2024 Erythrocyte distribution width (RBC) [Ratio] 16.2 % High 11.5-15.5 [facility] Comment on above: Performed By: #### D IFF, BMP, CBC, GFR, MORPH #### [address] [address] Hematocrit (Bld) [Volume fraction] 21.1 % Low 40.0-52.0 [facility] Comment on above: Performed By: #### D IFF, BMP, CBC, GFR, MORPH #### [place] [id number] Hgb 7.0 G/dL Low 13.0-17.5 [facility] Comment on above: Performed By: #### D IFF, BMP, CBC, GFR, MORPH #### [place] [address] MCH (RBC) [Entitic mass] 44.7 pg High 27.0-33.0 [facility] Comment on above: Performed By: #### D IFF, BMP, CBC, GFR, MORPH #### [place] [address] MCHC 32.9 G/dL Normal 32.0-36.0 [facility] Comment on above: Performed By: #### D IFF, BMP, CBC, GFR, MORPH #### [place] [address] MCV (RBC) [Entitic vol] 135.8 fL High 81.0-100.0 [facility] Comment on above: Performed By: #### D IFF, BMP, CBC, GFR, MORPH #### [place] [address] Platelet 192 10 3/mcL Normal 150-450 [facility] Comment on above: Performed By: #### D IFF, BMP, CBC, GFR, MORPH #### [place] [address] Platelet mean volume (Bld) [Entitic vol] 7.2 fL Normal 6.4-10.5 [facility] Comment on above: Performed By: #### D IFF, BMP, CBC, GFR, MORPH #### [place] [address] RBC 1.56 10 6/mcL Low 4.50-6.00 [facility] Comment on above: Performed By: #### D IFF, BMP, CBC, GFR, MORPH #### [place] [address] WBC 19.9 10 3/mcL High 4.5-10.8 [facility] Comment on above: Performed By: #### D IFF, BMP, CBC, GFR, MORPH #### [place] [address] HHon 05-25-2024 Hematocrit (Bld) [Volume fraction] 26.8 % Low 40.0-52.0 [facility] Comment on above: Performed By: #### D IFF, GFR, BMP, MORPH, CBC #### [facility] [address] [place] [address] Hgb 8.7 G/dL Low 13.0-17.5 [facility] Comment on above: Performed By: #### D IFF, GFR, BMP, MORPH, CBC #### [facility] [address] [place] [id number] LABORATORYOrdered By: SYSTEM SYSTEM on 05-25-2024 Hematocrit [...] above: Interpretive Data: T esting performed on [employer] CH analyzer using enzymatic creatinine methodology. Dacrocytes [...] Product Ready RBC Ready for Pickup Normal [facility] MAIN Comment on above: Performed By: #### D IFF, GFR, BMP, MORPH, CBC #### [place] [address] .GFRon 05-24-2024 Estimated Glomerular Filtration Rate 56 ml/min/1.73sqm Normal [facility] MAIN Comment on above: Result Comment: Stages [...] D IFF, BMP, CBC, GFR, MORPH #### [place] [address] .Manual Diffon 05-24-2024 Basophil %, Manual 0.0 % Normal 0.0-2.5 [facility] MAIN Comment on above: Performed By: #### D IFF, GFR, BMP, MORPH, CBC #### [place] [address] Basophil, Abs Manual 0.0 10 3/mcL Normal 0.0-0.[address] [facility] MAIN Comment on above: Performed By: #### D IFF, GFR, BMP, MORPH, CBC #### [place] [address] Eosinophil %, Manual 0.0 % Normal 0.0-6.0 [facility] MAIN Comment on above: Performed By: #### D IFF, GFR, BMP, MORPH, CBC #### [address] [address] Eosinophil, Abs Manual 0.0 10 3/mcL Normal 0.0-0.7 [facility] MAIN Comment on above: Performed By: #### D IFF, GFR, BMP, MORPH, CBC #### [address] [address] Lymphocyte %, Manual 90.0 % High 20.0-40.0 [facility] MAIN Comment on above: Performed By: #### D IFF, GFR, BMP, MORPH, CBC #### [address] [address] Lymphocyte, Abs Manual 21.7 10 3/mcL High 0.9-4.3 [facility] MAIN Comment on above: Performed By: #### D IFF, GFR, BMP, MORPH, CBC #### [address] [address] Monocyte %, Manual 2.0 % Normal 2.0-13.0 [facility] MAIN Comment on above: Performed By: #### D IFF, GFR, BMP, MORPH, CBC #### [address] [address] Monocyte, Abs Manual 0.5 10 3/mcL Normal 0.1-1.[address] [facility] MAIN Comment on above: Performed By: #### D IFF, GFR, BMP, MORPH, CBC #### [address] [address] Neutrophil %, Manual 8.0 % Low 50.0-75.0 [facility] MAIN Comment on above: Performed By: #### D IFF, GFR, BMP, MORPH, CBC #### [address] [address] Neutrophil, Abs Manual 1.9 10 3/mcL Low 2.3-8.1 [facility] MAIN Comment on above: Performed By: #### D IFF, GFR, BMP, MORPH, CBC #### [address] [address] Nucleated RBC 0.0 /100 WBC Normal [facility] MAIN Comment on above: Performed By: #### D IFF, GFR, BMP, MORPH, CBC #### [address] [address] .Morphon 05-24-2024 Anisocytosis Ql (Bld) 1+ Normal [facility] MAIN Comment on above: Performed By: #### D IFF, GFR, BMP, MORPH, CBC #### [place] [address] Macrocytosis 3+ Normal [facility] MAIN Comment on above: Performed By: #### D IFF, GFR, BMP, MORPH, CBC #### [place] [address] Platelet Estimate Normal [facility] MAIN Comment on above: Performed By: #### D IFF, GFR, BMP, MORPH, CBC #### [place] [address] Polychrom 1+ Normal [facility] MAIN Comment on above: Performed By: #### D IFF, GFR, BMP, MORPH, CBC #### [place] [address] Smudge Cells 2+ Normal [facility] MAIN Comment on above: Performed By: #### D IFF, GFR, BMP, MORPH, CBC #### [place] [address] Differential Comment See Below [facility] MAIN Comment on above: Result Comment: Diff erential performed on albumin smear Performed By: #### D IFF, GFR, BMP, MORPH, CBC #### [place] [address] BMPon 05-24-2024 BUN/Creatinine Ratio 17.0 ratio Normal 10.0-22.0 [facility] MAIN Comment on above: Performed By: #### D IFF, BMP, CBC, GFR, MORPH #### [place] [address] Calcium [Mass/Vol] 8.9 mg/dL Normal 8.7-10.4 [facility] MAIN Comment on above: Performed By: #### D IFF, BMP, CBC, GFR, MORPH #### [place] [address] Chloride [Moles/Vol] 108 mmol/L Normal 98-110 [facility] MAIN Comment on above: Performed By: #### D IFF, BMP, CBC, GFR, MORPH #### [address] [address] CO2 [Moles/Vol] 20 mmol/L Low 22-32 [facility] MAIN Comment on above: Performed By: #### D IFF, BMP, CBC, GFR, MORPH #### [address] [address] Creatinine [Mass/Vol] 1.35 mg/dL Normal 0.60-1.40 [facility] MAIN Comment on above: Result Comment: Test ing performed on Touch[employer] analyzer using enzymatic creatinine methodology. Performed By: #### D IFF, BMP, CBC, GFR, MORPH #### [address] [address] Electrolyte Balance 11.0 mEq/L Normal 4.0-15.0 [facility] MAIN Comment on above: Performed By: #### D IFF, BMP, CBC, GFR, MORPH #### [address] [address] Glucose [Mass/Vol] 111 mg/dL Normal 82-115 [facility] MAIN Comment on above: Performed By: #### D IFF, BMP, CBC, GFR, MORPH #### [address] [address] Potassium [Moles/Vol] 4.4 mmol/L Normal 3.5-5.0 [facility] MAIN Comment on above: Performed By: #### D IFF, BMP, CBC, GFR, MORPH #### [address] [address] Sodium [Moles/Vol] 139 mmol/L Normal 136-145 [facility] MAIN Comment on above: Performed By: #### D IFF, BMP, CBC, GFR, MORPH #### [address] [address] Urea nitrogen [Mass/Vol] 23.0 mg/dL High 8.0-22.0 [facility] MAIN Comment on above: Performed By: #### D IFF, BMP, CBC, GFR, MORPH #### [place] [address] CBCon 05-24-2024 Erythrocyte distribution width (RBC) [Ratio] 16.6 % High 11.5-15.5 [facility] MAIN Comment on above: Performed By: #### D IFF, GFR, BMP, MORPH, CBC #### [place] [address] Hematocrit (Bld) [Volume fraction] 25.9 % Low 40.0-52.0 [facility] MAIN Comment on above: Performed By: #### D IFF, GFR, BMP, MORPH, CBC #### [place] [address] Hgb 8.8 G/dL Low 13.0-17.5 [facility] MAIN Comment on above: Performed By: #### D IFF, GFR, BMP, MORPH, CBC #### [place] [address] MCH (RBC) [Entitic mass] 45.6 pg High 27.0-33.0 [facility] MAIN Comment on above: Performed By: #### D IFF, GFR, BMP, MORPH, CBC #### [place] [address] MCHC 34.0 G/dL Normal 32.0-36.0 [facility] MAIN Comment on above: Performed By: #### D IFF, GFR, BMP, MORPH, CBC #### [place] [address] MCV (RBC) [Entitic vol] 134.2 fL High 81.0-100.0 [facility] MAIN Comment on above: Performed By: #### D IFF, GFR, BMP, MORPH, CBC #### [place] [address] Platelet 202 10 3/mcL Normal 150-450 [facility] MAIN Comment on above: Performed By: #### D IFF, GFR, BMP, MORPH, CBC #### [place] [address] Platelet mean volume (Bld) [Entitic vol] 7.3 fL Normal 6.4-10.5 [facility] MAIN Comment on above: Performed By: #### D IFF, GFR, BMP, MORPH, CBC #### [address] [address] RBC 1.93 10 6/mcL Low 4.50-6.00 [facility] MAIN Comment on above: Performed By: #### D IFF, GFR, BMP, MORPH, CBC #### [place] [address] WBC 24.1 10 3/mcL High 4.5-10.8 [facility] MAIN Comment on above: Performed By: #### D IFF, GFR, BMP, MORPH, CBC #### [place] [address] CMPon 05-24-2024 Albumin Level 3.2 G/dL Normal 3.2-4.8 [facility] MAIN Comment on above: Performed By: #### D IFF, GFR, BMP, MORPH, CBC #### [place] [address] Albumin/Globulin [Mass ratio] 1.4 {ratio} Normal 0.9-1.6 [facility] MAIN Comment on above: Performed By: #### D IFF, GFR, BMP, MORPH, CBC #### [place] [address] ALP [Catalytic activity/Vol] 62 U/L Normal 38-126 [facility] MAIN Comment on above: Performed By: #### D IFF, GFR, BMP, MORPH, CBC #### [place] [address] ALT [Catalytic activity/Vol] 13 U/L Normal 12-55 [facility] MAIN Comment on above: Performed By: #### D IFF, GFR, BMP, MORPH, CBC #### [place] [address] AST [Catalytic activity/Vol] 18 U/L Normal 8-34 [facility] MAIN Comment on above: Performed By: #### D IFF, GFR, BMP, MORPH, CBC #### [place] [address] Bili Total 0.90 mg/dL Normal 0.20-1.20 [facility] MAIN Comment on above: Result Comment: Use of this assay is not recommended for patients undergoing treatment with eltrombopag due to the potential for falsely elevated results. Performed By: #### D IFF, GFR, BMP, MORPH, CBC #### [address] [address] BUN/Creatinine Ratio 17.4 ratio Normal 10.0-22.0 [facility] MAIN Comment on above: Performed By: #### D IFF, GFR, BMP, MORPH, CBC #### [address] [address] Calcium [Mass/Vol] 9.1 mg/dL Normal 8.7-10.4 [facility] MAIN Comment on above: Performed By: #### D IFF, GFR, BMP, MORPH, CBC #### [address] [address] Chloride [Moles/Vol] 107 mmol/L Normal 98-110 [facility] MAIN Comment on above: Performed By: #### D IFF, GFR, BMP, MORPH, CBC #### [address] [address] CO2 [Moles/Vol] 21 mmol/L Low 22-32 [facility] MAIN Comment on above: Performed By: #### D IFF, GFR, BMP, MORPH, CBC #### [address] [address] Creatinine [Mass/Vol] 1.32 mg/dL Normal 0.60-1.40 [facility] MAIN Comment on above: Result Comment: Test ing performed on [employer] analyzer using enzymatic creatinine methodology. Performed By: #### D IFF, GFR, BMP, MORPH, CBC #### [address] [address] Electrolyte Balance 9.0 mEq/L Normal 4.0-15.0 [facility] MAIN Comment on above: Performed By: #### D IFF, GFR, BMP, MORPH, CBC #### [address] [address] Globulin 2.3 G/dL Normal 1.5-3.8 [facility] MAIN Comment on above: Performed By: #### D IFF, GFR, BMP, MORPH, CBC #### [address] [address] Glucose [Mass/Vol] 111 mg/dL Normal 82-115 [facility] MAIN Comment on above: Performed By: #### D IFF, GFR, BMP, MORPH, CBC #### [address] [address] Potassium [Moles/Vol] 4.4 mmol/L Normal 3.5-5.0 [facility] MAIN Comment on above: Performed By: #### D IFF, GFR, BMP, MORPH, CBC #### [address] [address] Sodium [Moles/Vol] 137 mmol/L Normal 136-145 [facility] MAIN Comment on above: Performed By: #### D IFF, GFR, BMP, MORPH, CBC #### [address] [address] Total Protein 5.5 G/dL Low 5.7-8.2 [facility] MAIN Comment on above: Performed By: #### D IFF, GFR, BMP, MORPH, CBC #### [address] [address] Urea nitrogen [Mass/Vol] 23.0 mg/dL High 8.0-22.0 [facility] MAIN Comment on above: Performed By: #### D IFF, GFR, BMP, MORPH, CBC #### [address] [address] [address] PELVIS W/O CONTRASTon CT PELVIS W/O [...] calcifications, particularly at the left SFA and [employer] NURSE PSYCHOTHERAPIST. Large amount of rectal stool with distension [...] calcifications, particularly at the left SFA and [employer] NURSE PSYCHOTHERAPIST. Correlate with any history of claudication. 6. Small fat-containing left inguinal hernia. Interpreted by: Olivier Chicas DO Preliminary Report By: Olivier Chicas DO Electronically signed By Olivier Chicas DO Dictated Date: 05/23/2024 11:25:33 AM Prelim Date: 05/23/2024 11:30:00 AM Sign Date: 05/23/2024 11:30:00 AM Ordering Provider: VILMA MARTINEZ [facility] MAIN LABORATORYOrdered By: SYSTEM SYSTEM on 05-24-2024 [...] Filtration Rate 56 ml/min/1.73sqm Invalid Interpretation Code [facility] SS Comment on above: Interpretive Data: Stages [...] 2.3 G/dL Normal 1.5 - 3.8 G/dL [facility] SS Lymphocytes (Bld) [#/Vol] 21.7 103/mcL High [...] Sensitivity Troponin I 9 ng/L Normal 0-54 [facility] MAIN Comment on above: Result Comment: High Sensitive Troponin I Reference Ranges: Female: 0-34 ng/L Male: 0-54 ng/L Testing performed on [employer] IM analyzer using direct chemiluminescent technology. Performed By: #### D IFF, GFR, BMP, MORPH, CBC #### [facility] [address] [place] [address] XR FLUORO 1-2 HRS TECH TIMEo n [...] 05/24/2024 2:25:34 PM Ordering Provider: MATT Iqbal [facility] MAIN XR HIP RIGHT W/PELVIS 4 VIEW [...] AM Ordering Provider: VILMA MARTINEZ [facility] MAIN .GFRon 05-23-2024 Estimated Glomerular Filtration Rate 49 ml/min/1.73sqm [facility] MAIN Comment on above: Result Comment: Stages [...] D IFF, BMP, CBC, GFR, MORPH #### [place] [address] Estimated Glomerular Filtration Rate 48 ml/min/1.73sqm [facility] MAIN Comment on above: Result Comment: Stages [...] D IFF, GFR, BMP, MORPH, CBC #### [place] [address] .MDWon 05-23-2024 Monocyte Distribution Width See Comment Normal 0.00-20.00 [facility] MAIN Comment on above: Result Comment: The MDW result could not be reported due to a sample abnormality that prevents the MDW from being calculated. Performed By: #### D IFF, GFR, BMP, MORPH, CBC #### [place] [address] .Manual Diffon 05-23-2024 Atypical Lymphs 20.0 % High 0.0-5.0 [facility] MAIN Comment on above: Performed By: #### D IFF, BMP, CBC, GFR, MORPH #### [place] [address] Basophil %, Manual 0.0 % Normal 0.0-2.5 [facility] MAIN Comment on above: Performed By: #### D IFF, BMP, CBC, GFR, MORPH #### [place] [address] Basophil, Abs Manual 0.0 10 3/mcL Normal 0.0-0.[address] [facility] MAIN Comment on above: Performed By: #### D IFF, BMP, CBC, GFR, MORPH #### [place] [address] Eosinophil %, Manual 0.0 % Normal 0.0-6.0 [facility] MAIN Comment on above: Performed By: #### D IFF, BMP, CBC, GFR, MORPH #### [place] [address] Eosinophil, Abs Manual 0.0 10 3/mcL Normal 0.0-0.7 [facility] MAIN Comment on above: Performed By: #### D IFF, BMP, CBC, GFR, MORPH #### [place] [address] Lymphocyte %, Manual 73.0 % High 20.0-40.0 [facility] MAIN Comment on above: Performed By: #### D IFF, BMP, CBC, GFR, MORPH #### [address] [address] Lymphocyte, Abs Manual 21.7 10 3/mcL High 0.9-4.3 [facility] MAIN Comment on above: Performed By: #### D IFF, BMP, CBC, GFR, MORPH #### [address] [address] Monocyte %, Manual 1.0 % Low 2.0-13.0 [facility] MAIN Comment on above: Performed By: #### D IFF, BMP, CBC, GFR, MORPH #### [address] [address] Monocyte, Abs Manual 0.3 10 3/mcL Normal 0.1-1.[address] [facility] MAIN Comment on above: Performed By: #### D IFF, BMP, CBC, GFR, MORPH #### [address] [address] Neutrophil %, Manual 6.0 % Low 50.0-75.0 [facility] MAIN Comment on above: Performed By: #### D IFF, BMP, CBC, GFR, MORPH #### [address] [address] Neutrophil, Abs Manual 1.8 10 3/mcL Low 2.3-8.1 [facility] MAIN Comment on above: Performed By: #### D IFF, BMP, CBC, GFR, MORPH #### [address] [address] Nucleated RBC 0.0 /100 WBC Normal [facility] MAIN Comment on above: Performed By: #### D IFF, BMP, CBC, GFR, MORPH #### [address] [address] Basophil %, Manual 0.0 % Normal 0.0-2.5 [facility] MAIN Comment on above: Performed By: #### D IFF, GFR, BMP, MORPH, CBC #### [address] [address] Basophil, Abs Manual 0.0 10 3/mcL Normal 0.0-0.[address] [facility] MAIN Comment on above: Performed By: #### D IFF, GFR, BMP, MORPH, CBC #### [address] [address] Eosinophil %, Manual 0.0 % Normal 0.0-6.0 [facility] MAIN Comment on above: Performed By: #### D IFF, GFR, BMP, MORPH, CBC #### [address] [address] Eosinophil, Abs Manual 0.0 10 3/mcL Normal 0.0-0.7 [facility] MAIN Comment on above: Performed By: #### D IFF, GFR, BMP, MORPH, CBC #### [address] [address] Lymphocyte %, Manual 90.0 % High 20.0-40.0 [facility] MAIN Comment on above: Performed By: #### D IFF, GFR, BMP, MORPH, CBC #### [address] [address] Lymphocyte, Abs Manual 31.7 10 3/mcL High 0.9-4.3 [facility] MAIN Comment on above: Performed By: #### D IFF, GFR, BMP, MORPH, CBC #### [address] [address] Monocyte %, Manual 0.0 % Low 2.0-13.0 [facility] MAIN Comment on above: Performed By: #### D IFF, GFR, BMP, MORPH, CBC #### [address] [address] Monocyte, Abs Manual 0.0 10 3/mcL Low 0.1-1.[address] [facility] MAIN Comment on above: Performed By: #### D IFF, GFR, BMP, MORPH, CBC #### [address] [address] Neutrophil %, Manual 10.0 % Low 50.0-75.0 [facility] MAIN Comment on above: Performed By: #### D IFF, GFR, BMP, MORPH, CBC #### [place] [address] Neutrophil, Abs Manual 3.5 10 3/mcL Normal 2.3-8.1 [facility] MAIN Comment on above: Performed By: #### D IFF, GFR, BMP, MORPH, CBC #### [place] [address] Nucleated RBC 0.0 /100 WBC Normal [facility] MAIN Comment on above: Performed By: #### D IFF, GFR, BMP, MORPH, CBC #### [place] [address] .Manual DiffOrdered By: SYST EM SYSTEM on 05-23-2024 Aytpical Lymph, Abs Manual 5.9 103/mcL High 0.0-0.5 [facility] SS Comment on above: Performed By: #### D IFF, BMP, CBC, GFR, MORPH #### [place] [address] .Morphon 05-23-2024 Anisocytosis Ql (Bld) 1+ Normal [facility] MAIN Comment on above: Performed By: #### D IFF, BMP, CBC, GFR, MORPH #### [place] [address] Macrocytosis 3+ Normal [facility] MAIN Comment on above: Performed By: #### D IFF, BMP, CBC, GFR, MORPH #### [place] [address] Ovalocytes 1+ Normal [facility] MAIN Comment on above: Performed By: #### D IFF, BMP, CBC, GFR, MORPH #### [place] [address] Platelet Estimate Normal [facility] MAIN Comment on above: Performed By: #### D IFF, BMP, CBC, GFR, MORPH #### [place] [address] Poik 1+ [facility] MAIN Comment on above: Performed By: #### D IFF, BMP, CBC, GFR, MORPH #### [place] [address] Polychrom 1+ Normal [facility] MAIN Comment on above: Performed By: #### D IFF, BMP, CBC, GFR, MORPH #### [address] [address] Tear Cell 1+ Normal [facility] MAIN Comment on above: Performed By: #### D IFF, BMP, CBC, GFR, MORPH #### [address] [address] Anisocytosis Ql (Bld) 1+ Normal [facility] MAIN Comment on above: Performed By: #### D IFF, GFR, BMP, MORPH, CBC #### [address] [address] Differential Comment See Below [facility] MAIN Comment on above: Result Comment: Diff erential performed on albumin smear Performed By: #### D IFF, GFR, BMP, MORPH, CBC #### [place] [address] Macrocytosis 3+ Normal [facility] MAIN Comment on above: Performed By: #### D IFF, GFR, BMP, MORPH, CBC #### [place] [address] Ovalocytes 1+ Normal [facility] MAIN Comment on above: Performed By: #### D IFF, GFR, BMP, MORPH, CBC #### [place] [address] Platelet Estimate Normal [facility] MAIN Comment on above: Performed By: #### D IFF, GFR, BMP, MORPH, CBC #### [place] [address] Poik 2+ [facility] MAIN Comment on above: Performed By: #### D IFF, GFR, BMP, MORPH, CBC #### [place] [address] Stomatocytes 2+ [facility] MAIN Comment on above: Performed By: #### D IFF, GFR, BMP, MORPH, CBC #### [place] [address] ABO/Rh (Gel)on 05-23-2024 ABO/Rh Interp Positive Invalid Interpretation Code [facility] MAIN Comment on above: Performed By: #### D IFF, GFR, BMP, MORPH, CBC #### [address] [address] ABS (Gel)on 05-23-2024 ABSC Interp (Gel) Negative Normal [facility] MAIN Comment on above: Performed By: #### D IFF, GFR, BMP, MORPH, CBC #### [address] [address] Jose 05-23-2024 Ethanol Level <10.0 Normal [facility] MAIN Comment on above: Performed By: #### D IFF, GFR, BMP, MORPH, CBC #### [address] [address] BMPon 05-23-2024 BUN/Creatinine Ratio 21.9 ratio Normal 10.0-22.0 [facility] MAIN Comment on above: Performed By: #### D IFF, BMP, CBC, GFR, MORPH #### [address] [address] Calcium [Mass/Vol] 9.8 mg/dL Normal 8.7-10.4 [facility] MAIN Comment on above: Performed By: #### D IFF, BMP, CBC, GFR, MORPH #### [address] [address] Chloride [Moles/Vol] 107 mmol/L Normal 98-110 [facility] MAIN Comment on above: Performed By: #### D IFF, BMP, CBC, GFR, MORPH #### [address] [address] CO2 [Moles/Vol] 21 mmol/L Low 22-32 [facility] MAIN Comment on above: Performed By: #### D IFF, BMP, CBC, GFR, MORPH #### [address] [address] Creatinine [Mass/Vol] 1.51 mg/dL High 0.60-1.40 [facility] MAIN Comment on above: Result Comment: Test ing performed on Touchbase analyzer using enzymatic creatinine methodology. Performed By: #### D IFF, BMP, CBC, GFR, MORPH #### [address] [address] Electrolyte Balance 10.0 mEq/L Normal 4.0-15.0 [facility] MAIN Comment on above: Performed By: #### D IFF, BMP, CBC, GFR, MORPH #### [address] [address] Glucose [Mass/Vol] 99 mg/dL Normal 82-115 [facility] MAIN Comment on above: Performed By: #### D IFF, BMP, CBC, GFR, MORPH #### [address] [address] Potassium [Moles/Vol] 4.3 mmol/L Normal 3.5-5.0 [facility] MAIN Comment on above: Performed By: #### D IFF, BMP, CBC, GFR, MORPH #### [address] [address] Sodium [Moles/Vol] 138 mmol/L Normal 136-145 [facility] MAIN Comment on above: Performed By: #### D IFF, BMP, CBC, GFR, MORPH #### [address] [address] Urea nitrogen [Mass/Vol] 33.0 mg/dL High 8.0-22.0 [facility] MAIN Comment on above: Performed By: #### D IFF, BMP, CBC, GFR, MORPH #### [address] [address] BUN/Creatinine Ratio 22.6 ratio High 10.0-22.0 [facility] MAIN Comment on above: Performed By: #### D IFF, GFR, BMP, MORPH, CBC #### [address] [address] Calcium [Mass/Vol] 9.6 mg/dL Normal 8.7-10.4 [facility] MAIN Comment on above: Performed By: #### D IFF, GFR, BMP, MORPH, CBC #### [address] [address] Chloride [Moles/Vol] 105 mmol/L Normal 98-110 [facility] Comment on above: Performed By: #### D IFF, GFR, BMP, MORPH, CBC #### [address] [address] CO2 [Moles/Vol] 22 mmol/L Normal 22-32 [facility] Comment on above: Performed By: #### D IFF, GFR, BMP, MORPH, CBC #### [address] [address] Creatinine [Mass/Vol] 1.55 mg/dL High 0.60-1.40 [facility] Comment on above: Result Comment: Test ing performed on Touchbase analyzer using enzymatic creatinine methodology. Performed By: #### D IFF, GFR, BMP, MORPH, CBC #### [address] [address] Electrolyte Balance 12.0 mEq/L Normal 4.0-15.0 [facility] Comment on above: Performed By: #### D IFF, GFR, BMP, MORPH, CBC #### [address] [address] Glucose [Mass/Vol] 96 mg/dL Normal 82-115 [facility] Comment on above: Performed By: #### D IFF, GFR, BMP, MORPH, CBC #### [address] [address] Potassium [Moles/Vol] 4.4 mmol/L Normal 3.5-5.0 [facility] MAIN Comment on above: Performed By: #### D IFF, GFR, BMP, MORPH, CBC #### [address] [address] Sodium [Moles/Vol] 139 mmol/L Normal 136-145 [facility] MAIN Comment on above: Performed By: #### D IFF, GFR, BMP, MORPH, CBC #### [address] [address] Urea nitrogen [Mass/Vol] 35.0 mg/dL High 8.0-22.0 [facility] MAIN Comment on above: Performed By: #### D IFF, GFR, BMP, MORPH, CBC #### [address] [address] CBCon 05-23-2024 Erythrocyte distribution width (RBC) [Ratio] 16.8 % High 11.5-15.5 [facility] MAIN Comment on above: Performed By: #### D IFF, BMP, CBC, GFR, MORPH #### [place] [address] Hematocrit (Bld) [Volume fraction] 28.3 % Low 40.0-52.0 [facility] MAIN Comment on above: Performed By: #### D IFF, BMP, CBC, GFR, MORPH #### [place] [address] Hgb 9.3 G/dL Low 13.0-17.5 [facility] MAIN Comment on above: Performed By: #### D IFF, BMP, CBC, GFR, MORPH #### [place] [address] MCH (RBC) [Entitic mass] 44.2 pg High 27.0-33.0 [facility] MAIN Comment on above: Performed By: #### D IFF, BMP, CBC, GFR, MORPH #### [place] [address] MCHC 32.8 G/dL Normal 32.0-36.0 [facility] MAIN Comment on above: Performed By: #### D IFF, BMP, CBC, GFR, MORPH #### [place] [address] MCV (RBC) [Entitic vol] 134.7 fL High 81.0-100.0 [facility] MAIN Comment on above: Performed By: #### D IFF, BMP, CBC, GFR, MORPH #### [place] [id number] Platelet 212 10 3/mcL Normal 150-450 [facility] MAIN Comment on above: Performed By: #### D IFF, BMP, CBC, GFR, MORPH #### [place] [address] Platelet mean volume (Bld) [Entitic vol] 7.2 fL Normal 6.4-10.5 [facility] MAIN Comment on above: Performed By: #### D IFF, BMP, CBC, GFR, MORPH #### [place] [address] RBC 2.10 10 6/mcL Low 4.50-6.00 [facility] MAIN Comment on above: Performed By: #### D IFF, BMP, CBC, GFR, MORPH #### [place] [address] WBC 29.7 10 3/mcL High 4.5-10.8 [facility] MAIN Comment on above: Performed By: #### D IFF, BMP, CBC, GFR, MORPH #### [place] [address] Erythrocyte distribution width (RBC) [Ratio] 16.9 % High 11.5-15.5 [facility] MAIN Comment on above: Performed By: #### D IFF, GFR, BMP, MORPH, CBC #### [place] [address] Hematocrit (Bld) [Volume fraction] 30.3 % Low 40.0-52.0 [facility] MAIN Comment on above: Performed By: #### D IFF, GFR, BMP, MORPH, CBC #### [place] [address] Hgb 10.0 G/dL Low 13.0-17.5 [facility] MAIN Comment on above: Performed By: #### D IFF, GFR, BMP, MORPH, CBC #### [place] [address] MCH (RBC) [Entitic mass] 44.4 pg High 27.0-33.0 [facility] MAIN Comment on above: Performed By: #### D IFF, GFR, BMP, MORPH, CBC #### [place] [address] MCHC 32.8 G/dL Normal 32.0-36.0 [facility] MAIN Comment on above: Performed By: #### D IFF, GFR, BMP, MORPH, CBC #### [place] [address] MCV (RBC) [Entitic vol] 135.1 fL High 81.0-100.0 [facility] MAIN Comment on above: Performed By: #### D IFF, GFR, BMP, MORPH, CBC #### [address] [address] Platelet 239 10 3/mcL Normal 150-450 [facility] MAIN Comment on above: Performed By: #### D IFF, GFR, BMP, MORPH, CBC #### [place] [address] Platelet mean volume (Bld) [Entitic vol] 7.0 fL Normal 6.4-10.5 [facility] MAIN Comment on above: Performed By: #### D IFF, GFR, BMP, MORPH, CBC #### [place] [address] RBC 2.24 10 6/mcL Low 4.50-6.00 [facility] MAIN Comment on above: Performed By: #### D IFF, GFR, BMP, MORPH, CBC #### [place] [address] WBC 35.2 10 3/mcL High 4.5-10.8 [facility] MAIN Comment on above: Performed By: #### D IFF, GFR, BMP, MORPH, CBC #### [place] [address] CKOrdered By: SYSTEM SYSTEM on 05-23-2024 CK [Catalytic activity/Vol] 47 U/L Normal 7-185 [facility] Comment on above: Performed By: #### D IFF, GFR, BMP, MORPH, CBC #### [place] [address] CKon 05-23-2024 CK [Catalytic activity/Vol] 63 U/L Normal 7-185 [facility] MAIN Comment on above: Performed By: #### D IFF, GFR, BMP, MORPH, CBC #### [place] [address] CT HEAD OR BRAIN W/O CONTRAS Ton [...] AM Ordering Provider: VILMA MARTINEZ [facility] MAIN CT SPINE CERVICAL W/O CONTRA STon [...] AM Ordering Provider: VILMA MARTINEZ [facility] MAIN LABORATORYOrdered By: SYSTEM SYSTEM on 05-23-2024 Troponin I.cardiac DL <= 0.01 ng/mL [Mass/Vol] 9 ng/L Normal 0 - 54 ng/L AH ADM SS Comment on above: Interpretive Data: High Sensitive Troponin I Reference Ranges: Female: 0-34 ng/L Male: 0-54 ng/L Testing performed on [employer] analyzer using direct chemiluminescent technology. Dacrocytes LM [...] Comment on above: Interpretive Data: Joan cruz [place] [employer] (CHEST, 1992, 102:312S-25S) [...] ng/L Male: 0-54 ng/L Testing performed on [employer] IM analyzer using direct chemiluminescent technology. MGOrdered By: SYSTEM SYSTEM on 05-23-2024 Magnesium [Mass/Vol] 1.6 mg/dL Normal 1.6-2.4 A DM SS Comment on above: Performed By: #### D IFF, GFR, BMP, MORPH, CBC #### [place] [address] PHOSOrdered By: SYSTEM [employer] on 05-23-2024 Phosphate [Mass/Vol] 4.5 mg/dL Normal 2.4-5.1 A DM SS Comment on above: Interpretive Data: * *Note - New Reference Range in effect 19 Result Comment: No te - New Reference Range in effect 19 Performed By: #### D IFF, GFR, BMP, MORPH, CBC #### [place] [address] PROon 05-23-2024 INR Coag (PPP) [Relative time] 1.2 {INR} Normal [facility] MAIN Comment on above: Result Comment: The [place] [employer] (CHEST, 1992, 102:312S-25S) recommended therapeutic range for oral anticoagulant therapy is: LOW RISK: Prophylaxis of venous thrombosis INR: 2.0-3.0 Treatment of pulmonary embolism 2.0-3.0 Prevention of systemic embolism 2.0-3.0 HIGH RISK: Mechanical prosthetic valves 2.5-3.5 Performed By: #### D IFF, GFR, BMP, MORPH, CBC #### [place] [id number] PROOrdered By: SYSTEM SYSTEM on 05-23-2024 PT [...] D IFF, GFR, BMP, MORPH, CBC #### [address] 05-23-2024 High Sensitivity Troponin I 10 ng/L Normal 0-54 [facility] MAIN Comment on above: Result Comment: High Sensitive Troponin I Reference Ranges: Female: 0-34 ng/L Male: 0-54 ng/L Testing performed on [employer] IM analyzer using direct chemiluminescent technology. Performed By: #### D IFF, GFR, BMP, MORPH, CBC #### [place] [address] High Sensitivity Troponin I 10 ng/L Normal 0-[address] [place] [address] MAIN Comment on above: Result Comment: High Sensitive Troponin I Reference Ranges: Female: 0-34 ng/L Male: 0-54 ng/L Testing performed on [employer] IM analyzer using direct chemiluminescent technology. Performed By: #### D IFF, GFR, BMP, MORPH, CBC #### [place] [address] High Sensitivity Troponin I 9 ng/L Normal 0-54 [facility] MAIN Comment on above: Result Comment: High Sensitive Troponin I Reference Ranges: Female: 0-34 ng/L Male: 0-54 ng/L Testing performed on [employer] IM analyzer using direct chemiluminescent technology. Performed By: #### D IFF, GFR, BMP, MORPH, CBC #### [place] [address] UAon 05-23-2024 Color (U) Yellow Normal [facility] MAIN Comment on above: Performed By: #### D IFF, GFR, BMP, MORPH, CBC #### [address] [address] Glucose (U) [Mass/Vol] Negative Normal Negative [facility] MAIN Comment on above: Performed By: #### D IFF, GFR, BMP, MORPH, CBC #### [place] [address] Ketones Ql (U) Negative Normal Neg-Trace [facility] MAIN Comment on above: Performed By: #### D IFF, GFR, BMP, MORPH, CBC #### [place] [address] UA Appear Clear Normal Clear [facility] MAIN Comment on above: Performed By: #### D IFF, GFR, BMP, MORPH, CBC #### [place] [address] UA Blood Negative Normal Neg-Trace [facility] MAIN Comment on above: Performed By: #### D IFF, GFR, BMP, MORPH, CBC #### [address] [address] UA Leuk Est Trace Normal Negative [facility] MAIN Comment on above: Performed By: #### D IFF, GFR, BMP, MORPH, CBC #### [address] [address] UA Nitrite Negative Normal Negative [facility] MAIN Comment on above: Performed By: #### D IFF, GFR, BMP, MORPH, CBC #### [place] [address] UA pH 7.0 Normal 5.0 - 8.0 [facility] MAIN Comment on above: Performed By: #### D IFF, GFR, BMP, MORPH, CBC #### [place] [id number] UA Protein Trace Normal Negative [facility] MAIN Comment on above: Performed By: #### D IFF, GFR, BMP, MORPH, CBC #### [place] [id number] UA Spec Grav 1.015 Normal 1.006-1.029 [facility] MAIN Comment on above: Performed By: #### D IFF, GFR, BMP, MORPH, CBC #### [facility] [address] [place] [address] UA Specimen Type Clean Catch Normal [facility] MAIN Comment on above: Performed By: #### D IFF, GFR, BMP, MORPH, CBC #### [facility] [address] [place] [address] UA Urobilinogen 0.2 E.U./dL Normal 0.2-1.0 [facility] MAIN Comment on above: Performed By: #### D IFF, GFR, BMP, MORPH, CBC #### [address] [address] Urobilinogen (U) [Mass/Vol] Negative Normal Neg-Trace [facility] MAIN Comment on above: Performed By: #### D IFF, GFR, BMP, MORPH, CBC #### [place] [id number] XR CHEST 1 VIEWon 05-23-2024 XR CHEST [...] 05/23/2024 11:28:54 AM Ordering Provider: VILMA MARTINEZ [facility] MAIN Celiac Disease Profileon ENDOMYSIAL IGA Negative Normal Negative [facility] Comment on above: Performed By: #### L 3410.2400, L501.6710 ####[facility] [address] [place], [address] IMMUNOGLOB A QN 15 mg/dL Low 61-437 [facility] Comment on above: Result Comment: Resu lt confirmed on concentration. Performed By: #### L 3410.2400, L501.6710 ####[facility] [address] [place], [address] tTG IGA <2 Normal 0-3 [facility] Comment on above: Result Comment: Nega tive 0 - 3 Weak Positive 4 - 10 Positive >10 Tissue Transglutaminase (tTG) has been identified as the endomysial antigen. Studies have demonstr- ated that endomysial IgA antibodies have over 99% specificity for gluten sensitive enteropathy. Performed By: #### L 3410.2400, L501.6710 ####[facility] [address] [place], [address] tTG IGG <2 Normal 0-5 [facility] Comment on above: Result Comment: Nega tive 0 - 5 Weak Positive 6 - 9 Positive >9Performed at: [employer] Director: Jorge Chatterjee PhD, Phone: [phone] Performed By: #### L 3410.2400, L501.6710 ####[facility] [address] [place], [address] CRPon 05-19-2024 C-REACTIVE PROT < 2.90 Normal 0.0-3.0 [facility] Comment on above: Result Comment: C-Re active Protein (CRP) provides useful information for thediagnosis, therapy and monitoring of inflammatory processesand associated diseases. For the evaluation of Relative Riskfor Cardiovascular Disease, a High Sensitivity CRP (HSCRP)should be ordered. Performed By: #### L 3410.2400, L501.6710 ####[facility] [address] [place], [address] MR/BMS.BPon 05-15-2024 MR/BMS.BP Normal [facility] CBC W/Diff, Automatedon - PATH REV Reviewed Normal [facility] Comment on above: Order Comment: CRITI KENTRELL VALUE CALLED TO [id number]/30/25 1507 Preeti Natanael.RESULTS READ BACK BY SAME. Result Comment: Abso lute lymphocytosis suggestive of low grade lympho-proliferative disorder.Macrocytic anemia.Clinical correlation is necessary.Prashanth Machado M.D. 05/14/24 AMENDED REPORT 05/14/24 1504 PATH REV previously reported as: August Performed By: #### L 100.0100, L500.4050, L503.6550, L504.2610, L503.6030 ####[facility] [address] [place], [address] Comprehensive Metabolic Prof ilon 05-13-2024 Albumin [Mass/Vol] 3.5 g/dL Normal 3.2-5.0 [facility] Comment on above: Performed By: #### L 100.0100, L500.4050, L503.6550, L504.2610, L503.6030 ####[facility] [address] [place], [address] Albumin/Globulin [Mass ratio] 1.3 {ratio} Normal 0.9-2.4 [facility] Comment on above: Performed By: #### L 100.0100, L500.4050, L503.6550, L504.2610, L503.6030 ####[facility] [address] [place], [address] ALK P 65 U/L Normal 45-117 [facility] Comment on above: Performed By: #### L 100.0100, L500.4050, L503.6550, L504.2610, L503.6030 ####[facility] [address] [place], [address] ALT [Catalytic activity/Vol] 19 U/L Normal 16-61 [facility] Comment on above: Performed By: #### L 100.0100, L500.4050, L503.6550, L504.2610, L503.6030 ####[facility] [address] [place], [address] AST [Catalytic activity/Vol] 13 U/L Low 15-37 [facility] Comment on above: Performed By: #### L 100.0100, L500.4050, L503.6550, L504.2610, L503.6030 ####[facility] [address] [place], [address] Bilirubin [Mass/Vol] 0.40 mg/dL Normal 0.20-1.00 [facility] Comment on above: Result Comment: For patients on eltrombopag therapy, use of Dimension [place] TBIL is not recommended. Performed By: #### L 100.0100, L500.4050, L503.6550, L504.2610, L503.6030 ####[facility] [address] [place], [address] BUN/CRE 22.2 RATIO High 10-20 [facility] Comment on above: Performed By: #### L 100.0100, L500.4050, L503.6550, L504.2610, L503.6030 ####[facility] [address] [place], [address] CA,Total 9.4 mg/dL Normal 8.5-10.1 [facility] Comment on above: Performed By: #### L 100.0100, L500.4050, L503.6550, L504.2610, L503.6030 ####[facility] [address] [place], [address] Chloride [Moles/Vol] 109 mmol/L High 98-107 [facility] Comment on above: Performed By: #### L 100.0100, L500.4050, L503.6550, L504.2610, L503.6030 ####[facility] [address] [place], [address] CO2 [Moles/Vol] 20.0 mmol/L Low 21.0-32.0 [facility] Comment on above: Performed By: #### L 100.0100, L500.4050, L503.6550, L504.2610, L503.6030 ####[facility] [address] [place], [address] Creatinine [Mass/Vol] 2.07 mg/dL High 0.70-1.30 [facility] Comment on above: Result Comment: The validity of the calculated GFR GFRAA in patients over70 years has not been determined. Clinical correlation isessential. Performed By: #### L 100.0100, L500.4050, L503.6550, L504.2610, L503.6030 ####[facility] [address] [place], [address] ECRCL 35.88 ml/min Normal [facility] Comment on above: Performed By: #### L 100.0100, L500.4050, L503.6550, L504.2610, L503.6030 ####[facility] [address] [place], [address] EST GFR - AA 41 mL/min Low >60 [facility] Comment on above: Result Comment: Afri can [place] GFR Calc Performed By: #### L 100.0100, L500.4050, L503.6550, L504.2610, L503.6030 ####[facility] [address] [place], [address] GAP 9 Normal 5-15 [facility] Comment on above: Performed By: #### L 100.0100, L500.4050, L503.6550, L504.2610, L503.6030 ####[facility] [address] [place], [address] GFR/1.73 sq M.predicted among non-blacks MDRD (S/P/Bld) [Vol rate/Area] 34 mL/min/{1.73_m2} Low >60 [facility] Comment on above: Result Comment: Non- GFR Calc Performed By: #### L 100.0100, L500.4050, L503.6550, L504.2610, L503.6030 ####[facility] [address] [place], [address] Globulin (S) [Mass/Vol] 2.7 g/dL Normal 2.2-4.2 [facility] Comment on above: Performed By: #### L 100.0100, L500.4050, L503.6550, L504.2610, L503.6030 ####[facility] [address] [place], [address] Glucose [Mass/Vol] 127 mg/dL High 74-106 [facility] Comment on above: Result Comment: Fast ing Glucose result greater than or equal to 126 mg/dLsuggests DIABETES MELLITUS per A.D.A. criteria. Performed By: #### L 100.0100, L500.4050, L503.6550, L504.2610, L503.6030 ####[facility] [address] [place], [address] Potassium [Moles/Vol] 4.8 mmol/L Normal 3.5-5.1 [facility] Comment on above: Performed By: #### L 100.0100, L500.4050, L503.6550, L504.2610, L503.6030 ####[facility] [address] [place], [address] Sodium [Moles/Vol] 138 mmol/L Normal 136-145 [facility] Comment on above: Performed By: #### L 100.0100, L500.4050, L503.6550, L504.2610, L503.6030 ####[facility] [address] [place], [address] T PROT 6.2 g/dL Low 6.4-8.2 [facility] Comment on above: Performed By: #### L 100.0100, L500.4050, L503.6550, L504.2610, L503.6030 ####[facility] [address] [place], [address] Urea nitrogen [Mass/Vol] 46 mg/dL High 7-18 [facility] Comment on above: Performed By: #### L 100.0100, L500.4050, L503.6550, L504.2610, L503.6030 ####[facility] [address] [place], [address] Ferritinon 05-13-2024 Ferritin [Mass/Vol] 64 ng/mL Normal 26-388 [facility] Comment on above: Performed By: #### L 100.0100, L500.4050, L503.6550, L504.2610, L503.6030 ####[facility] [address] [place], [address] Iron+Iron Binding Capacityon 05-13-2024 Iron [Mass/Vol] 122 ug/dL Normal 65-175 [facility] Comment on above: Performed By: #### L 100.0100, L500.4050, L503.6550, L504.2610, L503.6030 ####[facility] [address] [place], [address] IRON SATURATION 33.2 Normal 15.0-55.0 [facility] Comment on above: Performed By: #### L 100.0100, L500.4050, L503.6550, L504.2610, L503.6030 ####[facility] [address] [place], [address] TIBC 367 ug/dL Normal 250-450 [facility] Comment on above: Performed By: #### L 100.0100, L500.4050, L503.6550, L504.2610, L503.6030 ####[facility] [address] [place], [address] LDHon 05-13-2024 LDH 187 U/L Normal 87-241 [facility] Comment on above: Order Comment: 1 Performed By: #### L 100.0100, L500.4050, L503.6550, L504.2610, L503.6030 ####[facility] [address] [place], [address] Oncology Visit Reporton 04-16 Oncology Visit Report Normal [facility] Chest PA and Lateralon 05-11 Chest PA and Lateral Normal [facility] Ferritinon 05-11-2024 Ferritin [Mass/Vol] 79 ng/mL Normal 26-388 [facility] Comment on above: Performed By: #### L 503.6150, L503.6075, L503.6550, L500.3600 ####[facility] [address] [place], [address] Ironon 05-11-2024 Iron [Mass/Vol] 78 ug/dL Normal 65-175 [facility] Comment on above: Performed By: #### L 503.6150, L503.6075, L503.6550, L500.3600 ####[facility] [address] [place], [address] Iron Binding Capacity,Totalo n 05-11-2024 TIBC 367 ug/dL Normal 250-450 [facility] Comment on above: Performed By: #### L 503.6150, L503.6075, L503.6550, L500.3600 ####[facility] [address] [place], [address] M100.678on 05-11-2024 M100.678 SARS-CoV-2 (COVID 19 ) Negative INFLUENZA A Negative INFLUENZA B Negative RSV PCR Negative Normal [facility] Comment on above: Performed By: #### M 100.678 ####[facility] [address] [place], [address] Renal Profileon 05-11-2024 Albumin [Mass/Vol] 3.7 g/dL Normal 3.2-5.0 [facility] Comment on above: Performed By: #### L 503.6150, L503.6075, L503.6550, L500.3600 ####[facility] [address] [place], [address] BUN/CRE 16.3 RATIO Normal 10-20 [facility] Comment on above: Performed By: #### L 503.6150, L503.6075, L503.6550, L500.3600 ####[facility] [address] [place], [address] CA,Total 9.2 mg/dL Normal 8.5-10.1 [facility] Comment on above: Performed By: #### L 503.6150, L503.6075, L503.6550, L500.3600 ####[facility] [address] [place], [address] Chloride [Moles/Vol] 107 mmol/L Normal 98-107 [facility] Comment on above: Performed By: #### L 503.6150, L503.6075, L503.6550, L500.3600 ####[facility] [address] [place], [address] CO2 [Moles/Vol] 22.0 mmol/L Normal 21.0-32.0 [facility] Comment on above: Performed By: #### L 503.6150, L503.6075, L503.6550, L500.3600 ####[facility] [address] [place], [address] Creatinine [Mass/Vol] 2.02 mg/dL High 0.70-1.30 [facility] Comment on above: Result Comment: The validity of the calculated GFR GFRAA in patients over70 years has not been determined. Clinical correlation isessential. Performed By: #### L 503.6150, L503.6075, L503.6550, L500.3600 ####[facility] [address] [place], [address] EST GFR - AA 42 mL/min Low >60 [facility] Comment on above: Result Comment: Afri can [place] GFR Calc Performed By: #### L 503.6150, L503.6075, L503.6550, L500.3600 ####[facility] [address] [place], [address] GFR/1.73 sq M.predicted among non-blacks MDRD (S/P/Bld) [Vol rate/Area] 35 mL/min/{1.73_m2} Low >60 [facility] Comment on above: Result Comment: Non- GFR Calc Performed By: #### L 503.6150, L503.6075, L503.6550, L500.3600 ####[facility] [address] [place], [address] Glucose [Mass/Vol] 104 mg/dL Normal 74-106 [facility] Comment on above: Result Comment: Fast ing Glucose result from 100 to 125 mg/dLsuggests IMPAIRED HOMEOSTASIS per A.D.A. criteria. Performed By: #### L 503.6150, L503.6075, L503.6550, L500.3600 ####[facility] [address] [place], [address] Phosphate [Mass/Vol] 4.2 mg/dL Normal 2.5-4.9 [facility] Comment on above: Performed By: #### L 503.6150, L503.6075, L503.6550, L500.3600 ####[facility] [address] [place], [address] Potassium [Moles/Vol] 4.7 mmol/L Normal 3.5-5.1 [facility] Comment on above: Performed By: #### L 503.6150, L503.6075, L503.6550, L500.3600 ####[facility] [address] [place], [address] Sodium [Moles/Vol] 136 mmol/L Normal 136-145 [facility] Comment on above: Performed By: #### L 503.6150, [id number], L503.6550, L500.3600 ####[facility] [address] [place], [address] Urea nitrogen [Mass/Vol] 33 mg/dL High 7-18 [facility] Comment on above: Performed By: #### L 503.6150, [id number], L503.6550, L500.3600 ####[facility] [address] [place], [address] Cerv Spine 4 or 5 Viewson Cerv Spine 4 or 5 Views [facility] Orthopedic Visit Reporton Orthopedic Visit Report Normal [facility] 12 Lead EKG performed by [facility] on 05-05-2024 12 Lead EKG performed by [facility] Normal [facility] Cardiology Visit Reporton Cardiology Visit Report Normal [facility] .GFRon 05-03-2024 GFR 54 ml/min/1.73sqm [facility] Comment on above: Result Comment: GFR [...] D IFF, BMP, CBC, GFR, MORPH #### [place] [address] GFR Non- 45 ml/min/1.73sqm Normal [facility] Comment on above: Result Comment: GFR [...] D IFF, BMP, CBC, GFR, MORPH #### [address] [address] .Manual Diffon 05-03-2024 Basophil %, Manual 0.0 % Normal 0.0-2.5 [facility] Comment on above: Performed By: #### D IFF, BMP, CBC, GFR, MORPH #### [address] [address] Basophil, Abs Manual 0.0 10 3/mcL Normal 0.0-0.[address] [facility] Comment on above: Performed By: #### D IFF, BMP, CBC, GFR, MORPH #### [address] [address] Eosinophil %, Manual 0.0 % Normal 0.0-6.0 [facility] Comment on above: Performed By: #### D IFF, BMP, CBC, GFR, MORPH #### [address] [address] Eosinophil, Abs Manual 0.0 10 3/mcL Normal 0.0-0.7 [facility] Comment on above: Performed By: #### D IFF, BMP, CBC, GFR, MORPH #### [address] [address] Lymphocyte %, Manual 82.0 % High 20.0-40.0 [facility] Comment on above: Performed By: #### D IFF, BMP, CBC, GFR, MORPH #### [address] [address] Lymphocyte, Abs Manual 17.4 10 3/mcL High 0.9-4.3 [facility] Comment on above: Performed By: #### D IFF, BMP, CBC, GFR, MORPH #### [address] [address] Monocyte %, Manual 0.0 % Low 2.0-13.0 [facility] Comment on above: Performed By: #### D IFF, BMP, CBC, GFR, MORPH #### [address] [address] Monocyte, Abs Manual 0.0 10 3/mcL Low 0.1-1.[address] [facility] Comment on above: Performed By: #### D IFF, BMP, CBC, GFR, MORPH #### [address] [address] Neutrophil %, Manual 18.0 % Low 50.0-75.0 [facility] Comment on above: Performed By: #### D IFF, BMP, CBC, GFR, MORPH #### [address] [address] Neutrophil, Abs Manual 3.8 10 3/mcL Normal 2.3-8.1 [facility] Comment on above: Performed By: #### D IFF, BMP, CBC, GFR, MORPH #### [address] [address] Nucleated RBC 0.0 /100 WBC Normal [facility] Comment on above: Performed By: #### D IFF, BMP, CBC, GFR, MORPH #### [address] [address] .Morphon 05-03-2024 Anisocytosis Ql (Bld) 2+ Normal [facility] Comment on above: Performed By: #### D IFF, BMP, CBC, GFR, MORPH #### [place] [address] Differential Comment See Below Normal [facility] Comment on above: Result Comment: Diff erential performed on albumin smear Performed By: #### D IFF, BMP, CBC, GFR, MORPH #### [place] [address] Hypochrom 1+ Normal [facility] Comment on above: Performed By: #### D IFF, BMP, CBC, GFR, MORPH #### [place] [address] Macrocytosis 3+ Normal [facility] Comment on above: Performed By: #### D IFF, BMP, CBC, GFR, MORPH #### [place] [address] Platelet Estimate Normal [facility]IN Comment on above: Performed By: #### D IFF, BMP, CBC, GFR, MORPH #### [place] [address] Poik 1+ Normal [facility] Comment on above: Performed By: #### D IFF, BMP, CBC, GFR, MORPH #### [place] [address] Tear Cell 1+ Normal [facility] Comment on above: Performed By: #### D IFF, BMP, CBC, GFR, MORPH #### [place] [address] BMPon 05-03-2024 BUN/Creatinine Ratio 20.0 ratio Normal 10.0-22.0 [facility] Comment on above: Performed By: #### D IFF, GFR, BMP, MORPH, CBC #### [place] [address] Calcium [Mass/Vol] 9.8 mg/dL Normal 8.7-10.4 [facility] Comment on above: Performed By: #### D IFF, GFR, BMP, MORPH, CBC #### [address] [address] Chloride [Moles/Vol] 108 mmol/L Normal 98-110 [facility] Comment on above: Performed By: #### D IFF, GFR, BMP, MORPH, CBC #### [address] [address] CO2 [Moles/Vol] 24 mmol/L Normal 22-32 [facility] Comment on above: Performed By: #### D IFF, GFR, BMP, MORPH, CBC #### [address] [address] Creatinine [Mass/Vol] 1.55 mg/dL High 0.60-1.40 [facility] Comment on above: Result Comment: Test ing performed on Touchbase analyzer using enzymatic creatinine methodology. Performed By: #### D IFF, GFR, BMP, MORPH, CBC #### [address] [address] Electrolyte Balance 8.0 mEq/L Normal 4.0-15.0 [facility] MA[facility] Comment on above: Performed By: #### D IFF, GFR, BMP, MORPH, CBC #### [address] [address] Glucose [Mass/Vol] 128 mg/dL High 82-115 [facility] Comment on above: Performed By: #### D IFF, GFR, BMP, MORPH, CBC #### [address] [address] Potassium [Moles/Vol] 4.4 mmol/L Normal 3.5-5.0 [facility] Comment on above: Performed By: #### D IFF, GFR, BMP, MORPH, CBC #### [address] [address] Sodium [Moles/Vol] 140 mmol/L Normal 136-145 [facility] Comment on above: Performed By: #### D IFF, GFR, BMP, MORPH, CBC #### [address] [address] Urea nitrogen [Mass/Vol] 31.0 mg/dL High 8.0-22.0 [facility] Comment on above: Performed By: #### D IFF, GFR, BMP, MORPH, CBC #### [place] [address] CBCon 05-03-2024 Erythrocyte distribution width (RBC) [Ratio] 16.1 % High 11.5-15.5 [facility] Comment on above: Performed By: #### D IFF, GFR, BMP, MORPH, CBC #### [place] [address] Hematocrit (Bld) [Volume fraction] 26.1 % Low 40.0-52.0 [facility] Comment on above: Performed By: #### D IFF, GFR, BMP, MORPH, CBC #### [place] [address] Hgb 8.6 G/dL Low 13.0-17.5 [facility] Comment on above: Performed By: #### D IFF, GFR, BMP, MORPH, CBC #### [place] [address] MCH (RBC) [Entitic mass] 43.8 pg High 27.0-33.0 [facility] Comment on above: Performed By: #### D IFF, GFR, BMP, MORPH, CBC #### [place] [address] MCHC 32.8 G/dL Normal 32.0-36.0 [facility] Comment on above: Performed By: #### D IFF, GFR, BMP, MORPH, CBC #### [place] [address] MCV (RBC) [Entitic vol] 133.7 fL High 81.0-100.0 [facility] Comment on above: Performed By: #### D IFF, GFR, BMP, MORPH, CBC #### [place] [address] Platelet 324 10 3/mcL Normal 150-450 [facility] Comment on above: Performed By: #### D IFF, GFR, BMP, MORPH, CBC #### [facility] [address] [place] [address] Platelet mean volume (Bld) [Entitic vol] 7.6 fL Normal 6.4-10.5 [facility] Comment on above: Performed By: #### D IFF, GFR, BMP, MORPH, CBC #### [facility] [address] [place] [address] RBC 1.95 10 6/mcL Low 4.50-6.00 [facility] Comment on above: Performed By: #### D IFF, GFR, BMP, MORPH, CBC #### [facility] [address] [place] [address] WBC 21.2 10 3/mcL High 4.5-10.8 [facility] Comment on above: Performed By: #### D IFF, GFR, BMP, MORPH, CBC #### [place] [id number] [place] [address] LABORATORYOrdered By: Kodi Guadalupe on 05-03-2024 Blood Glucose Testing Reason Routine (05/03/24 8:22 AM) [facility] Work Phone: Glucose [Mass/Vol] 118 mg/dL High 82 - 115 mg/dL [facility] Work Phone: LABORATORYOrdered By: SYSTEM SYSTEM [...] [Vol rate/Area] 54 ml/min/1.73sqm Invalid Interpretation Code [employer] S Comment on above: Interpretive Data: [...] [Vol rate/Area] 45 ml/min/1.73sqm Invalid Interpretation Code [employer] S Comment on above: Interpretive Data: [...] SS MYCOon 05-03-2024 Mycoplasma IgG Negative Normal [facility] Comment on above: Result Comment: INTE RPRETATION OF MYCOPLASMA IgG BY EIA: Negative: No detectable M. pneumoniae IgG antibody. Positive: Mycoplasma pneumoniae IgG antibody Detected. Equivocal: Equivocal for IgG antibodies to Mycoplasma pneumoniae. Suggest repeat testing in 10-14 days. Performed By: #### D IFF, GFR, BMP, MORPH, CBC #### [place] [address] .GFRon 05-02-2024 GFR 52 ml/min/1.73sqm Normal [facility] Comment on above: Result Comment: GFR [...] D IFF, GFR, BMP, MORPH, CBC #### [address] [address] GFR Non- 43 ml/min/1.73sqm Normal [facility] Comment on above: Result Comment: GFR [...] D IFF, GFR, BMP, MORPH, CBC #### [address] [address] .Manual Diffon 05-02-2024 Bands 2.0 % Normal 0.0-5.0 [facility] Comment on above: Performed By: #### D IFF, GFR, BMP, MORPH, CBC #### [address] [address] Basophil %, Manual 0.0 % Normal 0.0-2.5 [facility] Comment on above: Performed By: #### D IFF, GFR, BMP, MORPH, CBC #### [address] [address] Basophil, Abs Manual 0.0 10 3/mcL Normal 0.0-0.[address] [facility] MAIN Comment on above: Performed By: #### D IFF, GFR, BMP, MORPH, CBC #### [address] [address] Eosinophil %, Manual 0.0 % Normal 0.0-6.0 [facility] Comment on above: Performed By: #### D IFF, GFR, BMP, MORPH, CBC #### [address] [address] Eosinophil, Abs Manual 0.0 10 3/mcL Normal 0.0-0.7 [facility] Comment on above: Performed By: #### D IFF, GFR, BMP, MORPH, CBC #### [address] [address] Lymphocyte %, Manual 79.0 % High 20.0-40.0 [facility] Comment on above: Performed By: #### D IFF, GFR, BMP, MORPH, CBC #### [address] [address] Lymphocyte, Abs Manual 18.9 10 3/mcL High 0.9-4.3 [facility] Comment on above: Performed By: #### D IFF, GFR, BMP, MORPH, CBC #### [address] [address] Monocyte %, Manual 5.0 % Normal 2.0-13.0 [facility] Comment on above: Performed By: #### D IFF, GFR, BMP, MORPH, CBC #### [address] [address] Monocyte, Abs Manual 1.2 10 3/mcL Normal 0.1-1.[address] [facility] MAIN Comment on above: Performed By: #### D IFF, GFR, BMP, MORPH, CBC #### [address] [address] Neutrophil %, Manual 14.0 % Low 50.0-75.0 [facility] Comment on above: Performed By: #### D IFF, GFR, BMP, MORPH, CBC #### [address] [address] Neutrophil, Abs Manual 3.9 10 3/mcL Normal 2.3-8.1 [facility] Comment on above: Performed By: #### D IFF, GFR, BMP, MORPH, CBC #### [address] [address] Nucleated RBC 0.0 /100 WBC Normal [facility] Comment on above: Performed By: #### D IFF, GFR, BMP, MORPH, CBC #### [address] [address] .Morphon 05-02-2024 Anisocytosis Ql (Bld) 1+ Normal [facility] Comment on above: Performed By: #### D IFF, GFR, BMP, MORPH, CBC #### [place] [address] Macrocytosis 1+ Normal [facility] Comment on above: Performed By: #### D IFF, GFR, BMP, MORPH, CBC #### [place] [address] Ovalocytes 1+ [facility] MAIN Comment on above: Performed By: #### D IFF, GFR, BMP, MORPH, CBC #### [place] [address] Platelet Estimate Normal [facility] MAIN Comment on above: Performed By: #### D IFF, GFR, BMP, MORPH, CBC #### [place] [address] Polychrom 1+ [facility] MAIN Comment on above: Performed By: #### D IFF, GFR, BMP, MORPH, CBC #### [place] [address] Smudge Cells 2+ [facility] MAIN Comment on above: Performed By: #### D IFF, GFR, BMP, MORPH, CBC #### [place] [address] Stomatocytes 1+ [facility]IN Comment on above: Performed By: #### D IFF, GFR, BMP, MORPH, CBC #### [place] [address] Tear Cell 1+ [facility] MAIN Comment on above: Performed By: #### D IFF, GFR, BMP, MORPH, CBC #### [place] [address] BMPon 05-02-2024 BUN/Creatinine Ratio 17.5 ratio Normal 10.0-22.0 [facility] Comment on above: Performed By: #### D IFF, GFR, BMP, MORPH, CBC #### [address] [address] Calcium [Mass/Vol] 9.4 mg/dL Normal 8.7-10.4 [facility] Comment on above: Performed By: #### D IFF, GFR, BMP, MORPH, CBC #### [address] [address] Chloride [Moles/Vol] 108 mmol/L Normal 98-110 [facility] Comment on above: Performed By: #### D IFF, GFR, BMP, MORPH, CBC #### [address] [address] CO2 [Moles/Vol] 22 mmol/L Normal 22-32 [facility] Comment on above: Performed By: #### D IFF, GFR, BMP, MORPH, CBC #### [place] [id number] Creatinine [Mass/Vol] 1.60 mg/dL High 0.60-1.40 [facility] MA[facility] Comment on above: Result Comment: Test ing performed on Touchbase analyzer using enzymatic creatinine methodology. Performed By: #### D IFF, GFR, BMP, MORPH, CBC #### [place] [address] Electrolyte Balance 9.0 mEq/L Normal 4.0-15.0 [facility] MAIN Comment on above: Performed By: #### D IFF, GFR, BMP, MORPH, CBC #### [address] [address] Glucose [Mass/Vol] 127 mg/dL High 82-115 [facility] MA[facility] Comment on above: Performed By: #### D IFF, GFR, BMP, MORPH, CBC #### [place] [id number] Potassium [Moles/Vol] 3.9 mmol/L Normal 3.5-5.0 [facility] Comment on above: Performed By: #### D IFF, GFR, BMP, MORPH, CBC #### [address] [address] Sodium [Moles/Vol] 139 mmol/L Normal 136-145 [facility] MA[facility] Comment on above: Performed By: #### D IFF, GFR, BMP, MORPH, CBC #### [place] [address] Urea nitrogen [Mass/Vol] 28.0 mg/dL High 8.0-22.0 [facility] Comment on above: Performed By: #### D IFF, GFR, BMP, MORPH, CBC #### [place] [address] CBCon 05-02-2024 Erythrocyte distribution width (RBC) [Ratio] 16.6 % High 11.5-15.5 [facility] Comment on above: Performed By: #### D IFF, GFR, BMP, MORPH, CBC #### [place] [address] Hematocrit (Bld) [Volume fraction] 26.0 % Low 40.0-52.0 [facility] Comment on above: Performed By: #### D IFF, GFR, BMP, MORPH, CBC #### [place] [address] Hgb 8.6 G/dL Low 13.0-17.5 [facility] Comment on above: Performed By: #### D IFF, GFR, BMP, MORPH, CBC #### [place] [address] MCH (RBC) [Entitic mass] 44.5 pg High 27.0-33.0 [facility] Comment on above: Performed By: #### D IFF, GFR, BMP, MORPH, CBC #### [place] [address] MCHC 33.2 G/dL Normal 32.0-36.0 [facility] Comment on above: Performed By: #### D IFF, GFR, BMP, MORPH, CBC #### [place] [address] MCV (RBC) [Entitic vol] 134.1 fL High 81.0-100.0 [facility] Comment on above: Performed By: #### D IFF, GFR, BMP, MORPH, CBC #### [facility] [address] [place] [address] Platelet 260 10 3/mcL Normal 150-450 [facility] Comment on above: Performed By: #### D IFF, GFR, BMP, MORPH, CBC #### [facility] [address] [place] [address] Platelet mean volume (Bld) [Entitic vol] 7.0 fL Normal 6.4-10.5 [facility] Comment on above: Performed By: #### D IFF, GFR, BMP, MORPH, CBC #### [facility] [address] [place] [address] RBC 1.94 10 6/mcL Low 4.50-6.00 [facility] Comment on above: Performed By: #### D IFF, GFR, BMP, MORPH, CBC #### [facility] [address] [place] [address] WBC 24.0 10 3/mcL High 4.5-10.8 [facility] Comment on above: Performed By: #### D IFF, GFR, BMP, MORPH, CBC #### [facility] [address] [place] [address] THORAX W/O CONTRASTon CT THORAX W/O [...] 1:27:50 PM Ordering Provider: JEYSON AGUIAR Normal [facility] MAIN LABORATORYOrdered By: Bianca Fajardo on 05-02-2024 Glucose [Mass/Vol] 194 mg/dL High 82 - 115 mg/dL [facility] Work Phone: LABORATORYOrdered By: Jerome houston on 05-02-2024 Blood Glucose Testing Reason Routine (05/02/24 4:50 PM) [facility] Work Phone: Glucose [Mass/Vol] 130 mg/dL High 82 - 115 mg/dL [facility] Work Phone: LABORATORYOrdered By: Eveline fam on 05-02-2024 Blood Glucose Testing Reason Routine (05/02/24 11:50 AM) [facility] Work Phone: LABORATORYOrdered By: Aleja Gamble on 05-02-2024 MRSA (PCR) Not Detected 1 (05/02/24 5:15 AM) Normal Not Detected [employer] [facility] Comment on above: Result Comment: [place] [id number] MRSA PCR Int MRSA DNA not detecte [...] above: Interpretive Data: T esting performed on Touchbase analyzer using enzymatic creatinine methodology. Dacrocytes LM [...] 05-02-2024 Magnesium [Mass/Vol] 1.6 mg/dL Normal 1.6-2.4 [facility] Comment on above: Performed By: #### D IFF, GFR, BMP, MORPH, CBC #### [place] [address] MRSAPCRon 05-02-2024 MRSA (PCR) Not detected Normal Not Detected [facility] Comment on above: Result Comment: [place] [id number] Performed By: #### D IFF, GFR, BMP, MORPH, CBC #### [place] [address] MRSA PCR Int Normal [facility] Comment on above: Result Comment: MRSA [...] D IFF, GFR, BMP, MORPH, CBC #### [place] [address] MYCOon 05-02-2024 Mycoplasma IgM Negative Normal [facility] Comment on above: Result Comment: INTE [...] D IFF, GFR, BMP, MORPH, CBC #### [facility] [address] [place] [address] No Panel InformationOrdered By: Pavel Solomon on 05-02-2024 Culture Respiratory with Gram Stain Culture results pending. [facility] Comment on above: Requests for Mycopla sma, Legionella, Fungi, Mycobacteria, Chlamydia, and Viruses require ordering of those individual tests. GS 1+ Epithelial cells 3+ Polymorphonuclear cells 3+ Gram Negative Rods 3+ Gram Positive Cocci Rare Yeast [facility] Comment on above: Requests for Mycopla sma, Legionella, Fungi, Mycobacteria, Chlamydia, and Viruses require ordering of those individual tests. No Panel Informationon 05-02 Legionella Urine Ag Presumptive negative for L. pneumophila serogroup 1 antigen in urine, suggesting no recent or current infection. Legionnaire's disease cannot be ruled out since other serogroups and species may also cause disease. [facility] Work Phone: Streptococcus Pneumoniae Urine Antig Presumptive negative for pneumococcal pneumonia, suggesting no current or recent pneumococcal infection. Infection due to Strep pneumoniae cannot be ruled out since the antigen present in the sample may be below the detection limit of the test. [facility] Work Phone: Comment on above: This test has not be en evaluated on patients taking antibiotics for greater than 24 hours or on patients who have recently completed an antibiotic regimen. The accuracy of this test has not been proven in young children. .GFRon 05-01-2024 GFR Non- 33 ml/min/1.73sqm Normal [facility] Comment on above: Result Comment: GFR Population [...] DIFF, CMP, MDW, CBC, PRO ####[address] [place], [place] [address] GFR 40 ml/min/1.73sqm Normal [facility] Comment on above: Result Comment: GFR Population [...] DIFF, CMP, MDW, CBC, PRO ####[address] [place], [place] [address] .MDWon 05-01-2024 Monocyte Distribution Width 34.55 High 0.00-20.00 [facility] Comment on above: Result Comment: The predictive value of MDW for identifying sepsis in patients with hematological abnormalities has not been established Performed By: #### L AC, GFR, APTT, TROPHS, MORPH, DIFF, CMP, MDW, CBC, PRO ####[address] [place], [place] [address] .Manual Diffon 05-01-2024 Bands 4.0 % Normal 0.0-5.0 [facility] Comment on above: Performed By: #### L AC, GFR, APTT, TROPHS, MORPH, DIFF, CMP, MDW, CBC, PRO ####[address] [place], [place] [address] Basophil %, Manual 0.0 % Normal 0.0-2.5 [facility] Comment on above: Performed By: #### L AC, GFR, APTT, TROPHS, MORPH, DIFF, CMP, MDW, CBC, PRO ####[address] [place], [place] [address] Basophil, Abs Manual 0.0 10 3/mcL Normal 0.0-0.2 [facility] Comment on above: Performed By: #### L AC, GFR, APTT, TROPHS, MORPH, DIFF, CMP, MDW, CBC, PRO ####[address] [place], [place] [address] Eosinophil %, Manual 0.0 % Normal 0.0-7.0 [facility] Comment on above: Performed By: #### L AC, GFR, APTT, TROPHS, MORPH, DIFF, CMP, MDW, CBC, PRO ####[address] [place], [place] [address] Eosinophil, Abs Manual 0.0 10 3/mcL Normal 0.0-0.7 [facility] Comment on above: Performed By: #### L AC, GFR, APTT, TROPHS, MORPH, DIFF, CMP, MDW, CBC, PRO ####[address] [place], [place] [address] Lymphocyte %, Manual 80.0 % High 20.0-40.0 [facility] Comment on above: Performed By: #### L AC, GFR, APTT, TROPHS, MORPH, DIFF, CMP, MDW, CBC, PRO ####[address] [place], [place] [address] Lymphocyte, Abs Manual 14.1 10 3/mcL High 0.9-4.3 [facility] Comment on above: Performed By: #### L AC, GFR, APTT, TROPHS, MORPH, DIFF, CMP, MDW, CBC, PRO ####Hussainisabelle [address] [place], [place] [address] Monocyte %, Manual 1.0 % Low 2.0-13.0 [facility] Comment on above: Performed By: #### L AC, GFR, APTT, TROPHS, MORPH, DIFF, CMP, MDW, CBC, PRO ####[facility] [place], [place] [address] Monocyte, Abs Manual 0.2 10 3/mcL Normal 0.1-1.4 [facility] Comment on above: Performed By: #### L AC, GFR, APTT, TROPHS, MORPH, DIFF, CMP, MDW, CBC, PRO ####[address] [place], [place] [address] Neutrophil %, Manual 15.0 % Low 50.0-75.0 [facility] Comment on above: Performed By: #### L AC, GFR, APTT, TROPHS, MORPH, DIFF, CMP, MDW, CBC, PRO ####[address] [place], [place] [address] Neutrophil, Abs Manual 3.3 10 3/mcL Normal 2.3-8.1 [facility] Comment on above: Performed By: #### L AC, GFR, APTT, TROPHS, MORPH, DIFF, CMP, MDW, CBC, PRO ####[address] [address] Nucleated RBC 0.0 /100 WBC Normal [facility] Comment on above: Performed By: #### L AC, GFR, APTT, TROPHS, MORPH, DIFF, CMP, MDW, CBC, PRO ####[facility] [place], [place] [address] .Morphon 05-01-2024 Anisocytosis Ql (Bld) 1+ Normal [facility] Comment on above: Performed By: #### L AC, GFR, APTT, TROPHS, MORPH, DIFF, CMP, MDW, CBC, PRO ####[facility] [place] [address] Macrocytosis 1+ Normal [facility] Comment on above: Performed By: #### L AC, GFR, APTT, TROPHS, MORPH, DIFF, CMP, MDW, CBC, PRO ####[address] [place], [place] [address] Ovalocytes 1+ Normal [facility] Comment on above: Performed By: #### L AC, GFR, APTT, TROPHS, MORPH, DIFF, CMP, MDW, CBC, PRO ####[address] [place], [place] [address] Platelet Estimate Normal Normal [facility] Comment on above: Performed By: #### L AC, GFR, APTT, TROPHS, MORPH, DIFF, CMP, MDW, CBC, PRO ####[address] [place], [place] [address] Smudge Cells 2+ Normal [facility] Comment on above: Performed By: #### L AC, GFR, APTT, TROPHS, MORPH, DIFF, CMP, MDW, CBC, PRO ####[address] [place] [address] Tear Cell 1+ Normal [facility] Comment on above: Performed By: #### L AC, GFR, APTT, TROPHS, MORPH, DIFF, CMP, MDW, CBC, PRO ####[address] [place], [place] [address] .Urinalysis Microscopic (AO) on 05-01-2024 UA Bacteria 3+ /hpf Abnormal [facility] Comment on above: Performed By: #### U A, UAMICAO ####[address] [place], [place] [address] UA RBC None Seen Normal None Seen [facility] Comment on above: Performed By: #### U A, UAMICAO ####[address] [place], [place] [address] UA Squam Epithelial None Seen Normal None Seen [facility] Comment on above: Performed By: #### U A, UAMICAO ####[address] [place], [place] [address] UA WBC 10-15 Abnormal None Seen [facility] Comment on above: Performed By: #### U A, UAMICAO ####[address] [address] APTTon 05-01-2024 aPTT Coag (Bld) [Time] 33.0 s Normal 25.0-35.0 [facility] Comment on above: Result Comment: For Heparin anticoagulation therapy, the recommended therapeutic range is: 45.4-75.9 seconds. Patients on heparin therapy may have an extreme result. Performed By: #### L AC, GFR, APTT, TROPHS, MORPH, DIFF, CMP, MDW, CBC, PRO #### [address] [address] CBCon 05-01-2024 Erythrocyte distribution width (RBC) [Ratio] 16.5 % High 11.5-15.5 [facility] Comment on above: Performed By: #### L AC, GFR, APTT, TROPHS, MORPH, DIFF, CMP, MDW, CBC, PRO #### [address] [address] Hematocrit (Bld) [Volume fraction] 28.0 % Low 40.0-52.0 [facility] Comment on above: Performed By: #### L AC, GFR, APTT, TROPHS, MORPH, DIFF, CMP, MDW, CBC, PRO #### [address] [address] Hgb 9.5 G/dL Low 13.0-17.5 [facility] Comment on above: Performed By: #### L AC, GFR, APTT, TROPHS, MORPH, DIFF, CMP, MDW, CBC, PRO #### [address] [address] MCH (RBC) [Entitic mass] 44.5 pg High 27.0-33.0 [facility] Comment on above: Performed By: #### L AC, GFR, APTT, TROPHS, MORPH, DIFF, CMP, MDW, CBC, PRO #### [address] [address] MCHC 34.0 G/dL Normal 32.0-36.0 [facility] Comment on above: Performed By: #### L AC, GFR, APTT, TROPHS, MORPH, DIFF, CMP, MDW, CBC, PRO #### [address] [address] MCV (RBC) [Entitic vol] 131.0 fL High 81.0-100.0 [facility] Comment on above: Performed By: #### L AC, GFR, APTT, TROPHS, MORPH, DIFF, CMP, MDW, CBC, PRO #### [address] [address] Platelet 270 10 3/mcL Normal 150-450 [facility] Comment on above: Performed By: #### L AC, GFR, APTT, TROPHS, MORPH, DIFF, CMP, MDW, CBC, PRO #### [address] [address] Platelet mean volume (Bld) [Entitic vol] 7.6 fL Normal 6.4-10.5 [facility] Comment on above: Performed By: #### L AC, GFR, APTT, TROPHS, MORPH, DIFF, CMP, MDW, CBC, PRO #### [address] [address] RBC 2.14 10 6/mcL Low 4.50-6.00 [facility] Comment on above: Performed By: #### L AC, GFR, APTT, TROPHS, MORPH, DIFF, CMP, MDW, CBC, PRO #### [address] [address] WBC 17.6 10 3/mcL High 4.5-10.8 [facility] Comment on above: Performed By: #### L AC, GFR, APTT, TROPHS, MORPH, DIFF, CMP, MDW, CBC, PRO #### [address] [address] CMPon 05-01-2024 Albumin Level 3.6 G/dL Normal 3.4-4.8 [facility] Comment on above: Performed By: #### L AC, GFR, APTT, TROPHS, MORPH, DIFF, CMP, MDW, CBC, PRO ####[address] [place], [place] [address] Albumin/Globulin [Mass ratio] 1.1 {ratio} Normal 1.1-2.5 [facility] Comment on above: Performed By: #### L AC, GFR, APTT, TROPHS, MORPH, DIFF, CMP, MDW, CBC, PRO ####[address] [place], [place] [address] ALP [Catalytic activity/Vol] 93 U/L Normal 40-135 [facility] Comment on above: Performed By: #### L AC, GFR, APTT, TROPHS, MORPH, DIFF, CMP, MDW, CBC, PRO ####[address] [place] [address] ALT [Catalytic activity/Vol] 13 U/L Low 16-63 [facility] Comment on above: Performed By: #### L AC, GFR, APTT, TROPHS, MORPH, DIFF, CMP, MDW, CBC, PRO ####[address] [place] [id number] AST [Catalytic activity/Vol] 46 U/L High 10-40 [facility] Comment on above: Performed By: #### L AC, GFR, APTT, TROPHS, MORPH, DIFF, CMP, MDW, CBC, PRO ####[address] [place], [place] [address] Bili Total 1.0 mg/dL Normal 0.2-1.0 [facility] Comment on above: Result Comment: Use of this assay is not recommended for patients undergoing treatment with eltrombopag due to the potential for falsely elevated results. Performed By: #### L AC, GFR, APTT, TROPHS, MORPH, DIFF, CMP, MDW, CBC, PRO ####[address] [place] [id number] BUN/Creatinine Ratio 18 ratio Normal 7-27 [facility] Comment on above: Performed By: #### L AC, GFR, APTT, TROPHS, MORPH, DIFF, CMP, MDW, CBC, PRO ####[address]ain [address] [place], [place] [address] Calcium [Mass/Vol] 9.8 mg/dL Normal 8.4-10.2 [facility] Comment on above: Performed By: #### L AC, GFR, APTT, TROPHS, MORPH, DIFF, CMP, MDW, CBC, PRO ####[facility] [place], [place] [address] Chloride [Moles/Vol] 100 mmol/L Normal 98-107 [facility] Comment on above: Performed By: #### L AC, GFR, APTT, TROPHS, MORPH, DIFF, CMP, MDW, CBC, PRO ####[place] [address] [place] [id number] CO2 [Moles/Vol] 24 mmol/L Normal 23-31 [facility] Comment on above: Performed By: #### L AC, GFR, APTT, TROPHS, MORPH, DIFF, CMP, MDW, CBC, PRO ####[address] [place], [place] [address] Creatinine [Mass/Vol] 2.01 mg/dL High 0.70-1.30 [facility] Comment on above: Result Comment: Test ing performed on Siemens Dimension EXL analyzer using a modified kinetic Becca technique. Performed By: #### L AC, GFR, APTT, TROPHS, MORPH, DIFF, CMP, MDW, CBC, PRO ####[address] [place], [place] [address] Electrolyte Balance 13.0 mEq/L Normal 4.0-15.0 [facility] Comment on above: Performed By: #### L AC, GFR, APTT, TROPHS, MORPH, DIFF, CMP, MDW, CBC, PRO ####[address] [place], [place] [address] Globulin 3.3 G/dL Normal [facility] Comment on above: Performed By: #### L AC, GFR, APTT, TROPHS, MORPH, DIFF, CMP, MDW, CBC, PRO ####[place] [address] [place] [id number] Glucose [Mass/Vol] 134 mg/dL High 83-110 [facility] Comment on above: Performed By: #### L AC, GFR, APTT, TROPHS, MORPH, DIFF, CMP, MDW, CBC, PRO ####[address] [place], [place] [address] Potassium [Moles/Vol] 5.3 mmol/L High 3.5-5.1 [facility] Comment on above: Performed By: #### L AC, GFR, APTT, TROPHS, MORPH, DIFF, CMP, MDW, CBC, PRO ####[address] [place], [place] [address] Sodium [Moles/Vol] 137 mmol/L Normal 136-145 [facility] Comment on above: Performed By: #### L AC, GFR, APTT, TROPHS, MORPH, DIFF, CMP, MDW, CBC, PRO ####[address] [place], [place] [address] Total Protein 6.9 G/dL Normal 6.4-8.2 [facility] Comment on above: Performed By: #### L AC, GFR, APTT, TROPHS, MORPH, DIFF, CMP, MDW, CBC, PRO ####[place] [address] [place], [place] [address] Urea nitrogen [Mass/Vol] 36 mg/dL High 7-18 [facility] Comment on above: Performed By: #### L AC, GFR, APTT, TROPHS, MORPH, DIFF, CMP, MDW, CBC, PRO ####[address] [place], [place] [address] CVFLURVon 05-01-2024 FLU A PCR Negative Normal Negative [facility] Comment on above: Performed By: #### C VFLURV #### [address] [address] FLU B PCR Negative Normal Negative [facility] Comment on above: Performed By: #### C VFLURV #### [address] [address] RSV PCR Negative Normal Negative [facility] Comment on above: Performed By: #### C VFLURV #### [place] [address] [place], [place] [address] SARS-CoV-2 (COVID-19) RNA MYA+probe Ql (Unsp spec) Negative Normal Negative [facility] Comment on above: Result Comment: Resu lts [...] results. Performed By: #### C VFLURV #### [address] [place], [place] [address] LABORATORYOrdered By: Marjorie Natarajan on 05-01-2024 Appearance [...] Comment on above: Interpretive Data: Joan cruz [employer] [place] [employer] (CHEST, 1991, 102:312S-25S) [...] ng/L Male: 0-76 ng/L Testing performed on [employer] using a homogeneous sandwich chemiluminescent immunoassay based on Blue Box technology. Urea nitrogen [Mass/Vol] 36 mg/dL High 7 - 18 mg/dL AO ADM SS Urea nitrogen/Creatinine [Mass ratio] 18 ratio Normal 7 - 27 ratio AO ADM SS WBC (Bld) [#/Vol] 17.6 103/mcL High 4.5 - 10.8 10^3/mcL AO Workflow SS LACon 05-01-2024 Lactic Acid Lvl 1.4 mmol/L Normal 0.4-2.0 [facility] Comment on above: Performed By: #### L AC, GFR, APTT, TROPHS, MORPH, DIFF, CMP, MDW, CBC, PRO #### [place] [address] [place], [place] [address] No Panel Informationon 05-01 Microscopic examination of blood, culture Culture has been received in lab and is no growth to date. Routine cultures are held for 5 days. [facility] Work Phone: PROon 05-01-2024 PT Coag (PPP) [Time] 17.5 s High 9.0-14.4 [facility] Comment on above: Performed By: #### L AC, GFR, APTT, TROPHS, MORPH, DIFF, CMP, MDW, CBC, PRO #### [address] [address] PT International Ratio 1.5 Normal [facility] Comment on above: Result Comment: The [place] [employer] (CHEST, 1992, 102:312S-25S) recommended therapeutic range for oral anticoagulant therapy is: LOW RISK: Prophylaxis of venous thrombosis INR: 2.0-3.0 Treatment of pulmonary embolism 2.0-3.0 Prevention of systemic embolism 2.0-3.0 HIGH RISK: Mechanical prosthetic valves 2.5-3.5 Performed By: #### L AC, GFR, APTT, TROPHS, MORPH, DIFF, CMP, MDW, CBC, PRO #### [place] [address] [place], [place] [address] TROPHSon 05-01-2024 High Sensitivity Troponin I 9 ng/L Normal 0-76 [facility] Comment on above: Result Comment: High Sensitive Troponin I Reference Ranges: Female: 0-51 ng/L Male: 0-76 ng/L Testing performed on Dimension EXL using a homogeneous sandwich chemiluminescent immunoassay based on Blue Box technology. Performed By: #### L AC, GFR, APTT, TROPHS, MORPH, DIFF, CMP, MDW, CBC, PRO #### [address] [address] UAon 05-01-2024 Color (U) Yellow Normal [facility] Comment on above: Performed By: #### U A, UAMICAO ####[address] [place] [address] Glucose (U) [Mass/Vol] Negative Normal Negative [facility] Comment on above: Performed By: #### U A, UAMICAO ####[address] [place] [address] Ketones Ql (U) Negative Normal Negative [facility] Comment on above: Performed By: #### U A, UAMICAO ####[address] [place] [address] UA Appear Clear Normal Clear [facility] Comment on above: Performed By: #### U A, UAMICAO ####[address] [address] UA Blood Negative Normal Negative [facility] Comment on above: Performed By: #### U A, UAMICAO ####[address] [address] UA Leuk Est Negative Normal Negative [facility] Comment on above: Performed By: #### U A, UAMICAO ####[address] [address] UA Nitrite Positive Abnormal Negative [facility] Comment on above: Performed By: #### U A, UAMICAO ####[address] [address] UA pH 5.5 Normal 5.0 - 8.0 [facility] Comment on above: Performed By: #### U A, UAMICAO ####[address]isabelle [address] [place] [address] UA Protein Trace Normal Negative [facility] Comment on above: Performed By: #### U A, UAMICAO ####[address] [place] [address] UA Spec Grav 1.015 Normal 1.015-1.025 [facility] Comment on above: Performed By: #### U A, UAMICAO ####[address] [place], [place] [address] UA Specimen Type Clean Catch Normal [facility] Comment on above: Performed By: #### U A, UAMICAO ####[place] [address] [place], [place] [address] UA Urobilinogen 0.2 E.U./dL Normal 0.2-1.0 [facility] Comment on above: Performed By: #### U A, UAMICAO ####[place] [address] [place], [place] [address] Urobilinogen (U) [Mass/Vol] Negative Normal Negative [facility] Comment on above: Performed By: #### U Mary UAMICAO ####[place] [address] [place], [place] [address] XR CHEST 1 VIEWon 05-01-2024 XR CHEST [...] 3:07:49 PM Ordering Provider: NATASHA BERRY Normal [facility] Discharge Instructionon 04-14 Discharge Instruction Normal [facility] MR/POSTOP.ANEon 04-27-2024 MR/POSTOP.ANE Normal [facility] MR/RXUYIHQU9na 04-27-2024 MR/POSTOPAN2 Normal [facility] Operative Reporton Operative Report Normal [facility] MR/PAT.ANEon 04-23-2024 MR/PAT.ANE Normal [facility] CBC W/Diff, Automatedon PATH REV Reviewed Normal [facility] Comment on above: Result Comment: Abso lute lymphocytosis suggestive of low grade lympho-proliferative disorder.Clinical correlation is necessary.Macrocytic anemia.Prashanth Machado M.D. 04/19/24 AMENDED REPORT 04/19/24 1320 PATH REV previously reported as: August Performed By: #### L 506.1000, L501.9520, L100.0100, L500.4050 ####[facility] [address] [place], [address] Comprehensive Metabolic Prof ilon 04-16-2024 Albumin [Mass/Vol] 3.8 g/dL Normal 3.2-5.0 [facility] Comment on above: Performed By: #### L 506.1000, L501.9520, L100.0100, L500.4050 ####[facility] [address] [place], [address] Albumin/Globulin [Mass ratio] 1.2 {ratio} Normal 0.9-2.4 [facility] Comment on above: Performed By: #### L 506.1000, L501.9520, L100.0100, L500.4050 ####[facility] [address] [place], [address] ALK P 93 U/L Normal 45-117 [facility] Comment on above: Performed By: #### L 506.1000, L501.9520, L100.0100, L500.4050 ####[facility] [address] [place], [address] ALT [Catalytic activity/Vol] 14 U/L Low 16-61 [facility] Comment on above: Performed By: #### L 506.1000, L501.9520, L100.0100, L500.4050 ####[facility] [address] [place], [address] AST [Catalytic activity/Vol] 7 U/L Low 15-37 [facility] Comment on above: Performed By: #### L 506.1000, L501.9520, L100.0100, L500.4050 ####[facility] [address] [place], [address] Bilirubin [Mass/Vol] 0.40 mg/dL Normal 0.20-1.00 [facility] Comment on above: Result Comment: For patients on eltrombopag therapy, use of Dimension [place] TBIL is not recommended. Performed By: #### L 506.1000, L501.9520, L100.0100, L500.4050 ####[facility] [address] [place], [address] BUN/CRE 22.1 RATIO High 10-20 [facility] Comment on above: Performed By: #### L 506.1000, L501.9520, L100.0100, L500.4050 ####[facility] [address] [place], [address] CA,Total 9.2 mg/dL Normal 8.5-10.1 [facility] Comment on above: Performed By: #### L 506.1000, L501.9520, L100.0100, L500.4050 ####[facility] [address] [place], [address] Chloride [Moles/Vol] 109 mmol/L High 98-107 [facility] Comment on above: Performed By: #### L 506.1000, L501.9520, L100.0100, L500.4050 ####[facility] [address] [place], [address] CO2 [Moles/Vol] 23.0 mmol/L Normal 21.0-32.0 [facility] Comment on above: Performed By: #### L 506.1000, L501.9520, L100.0100, L500.4050 ####[facility] [address] [place], [address] Creatinine [Mass/Vol] 1.99 mg/dL High 0.70-1.30 [facility] Comment on above: Result Comment: The validity of the calculated GFR GFRAA in patients over70 years has not been determined. Clinical correlation isessential. Performed By: #### L 506.1000, L501.9520, L100.0100, L500.4050 ####[facility] [address] [place], [address] EST GFR - AA 43 mL/min Low >60 [facility] Comment on above: Result Comment: Afri can [place] GFR Calc Performed By: #### L 506.1000, L501.9520, L100.0100, L500.4050 ####[facility] [address] [place], [address] GAP 7 Normal 5-15 [facility] Comment on above: Performed By: #### L 506.1000, L501.9520, L100.0100, L500.4050 ####[facility] [address] [place], [address] GFR/1.73 sq M.predicted among non-blacks MDRD (S/P/Bld) [Vol rate/Area] 35 mL/min/{1.73_m2} Low >60 [facility] Comment on above: Result Comment: Non- GFR Calc Performed By: #### L 506.1000, L501.9520, L100.0100, L500.4050 ####[facility] [address] [place], [address] Globulin (S) [Mass/Vol] 3.1 g/dL Normal 2.2-4.2 [facility] Comment on above: Performed By: #### L 506.1000, L501.9520, L100.0100, L500.4050 ####[facility] [address] [place], [address] Glucose [Mass/Vol] 119 mg/dL High 74-106 [facility] Comment on above: Result Comment: Fast ing Glucose result from 100 to 125 mg/dLsuggests IMPAIRED HOMEOSTASIS per A.D.A. criteria. Performed By: #### L 506.1000, L501.9520, L100.0100, L500.4050 ####[facility] [address] [place], [address] Potassium [Moles/Vol] 4.6 mmol/L Normal 3.5-5.1 [facility] Comment on above: Performed By: #### L 506.1000, L501.9520, L100.0100, L500.4050 ####[facility] [address] [place], [address] Sodium [Moles/Vol] 139 mmol/L Normal 136-145 [facility] Comment on above: Performed By: #### L 506.1000, L501.9520, L100.0100, L500.4050 ####[facility] [address] [place], [address] T PROT 6.9 g/dL Normal 6.4-8.2 [facility] Comment on above: Performed By: #### L 506.1000, L501.9520, L100.0100, L500.4050 ####[facility] [address] [place], [address] Urea nitrogen [Mass/Vol] 44 mg/dL High 7-18 [facility] Comment on above: Performed By: #### L 506.1000, L501.9520, L100.0100, L500.4050 ####[facility] [address], [address] MR/BMS.BPon 04-16-2024 MR/BMS.BP Normal [facility] Thyroid Stim Hormone (TSH)on 04-16-2024 TSH 0.799 uIU/mL Normal 0.358-3.740 [facility] Comment on above: Performed By: #### L 506.1000, L501.9520, L100.0100, L500.4050 ####[facility] [address] [place], [address] Vitamin D,25 Hydroxyon 04-16 Vitamin D 25-OH 41.2 ng/mL Normal [facility] Comment on above: Result Comment: Mila min D 25(OH) Status Range Deficiency <20 ng/mL (50nmol/L) Insufficiency 20 - 30 ng/mL (50 - 75 nmol/L) Sufficiency 30 - 100 ng/mL (75 - 250 nmol/L) Toxicity >100 ng/mL (>250 nmol/L) Performed By: #### L 506.1000, L501.9520, L100.0100, L500.4050 ####[facility] [address] [place], [address] Re-Evaluation - PT (1)on Re-Evaluation - PT (1) Normal [facility] Upper Ext No Joint W/WO Cont on 03-26-2024 Upper Ext No Joint W/WO Cont Normal [facility] CBC W/Diff, Automatedon 12-0 PATH REV Reviewed Normal [facility] Comment on above: Result Comment: LYMP HOCYTOSIS SUGGESTIVE OF PROLIFERATIVE PROCESSMacrocytic anemia.Clinical correlation necessary.Daniele Sandy D.O. 03/22/24 AMENDED REPORT 03/22/24 1438 PATH REV previously reported as: August kathe Performed By: #### L 100.0100 ####[facility] [address] [place], [address] Culture, Blood (WB)on 2023 CUB Blood cultures x2, f rom two different sites No growth in 5 days. Normal [facility] Comment on above: Performed By: #### M 200.1000 ####[facility] [address] [place], [address] Basic Metabolic Profile (BMP )on 03-20-2024 BUN/CRE 11.8 RATIO Normal 10-20 [facility] [facility] Comment on above: Performed By: #### L 500.2500 ####[facility] [address] [place], [address] CA,Total 9.4 mg/dL Normal 8.5-10.1 [facility] Comment on above: Performed By: #### L 500.2500 ####[facility] [address] [place], [address] Chloride [Moles/Vol] 112 mmol/L High 98-107 [facility] Comment on above: Performed By: #### L 500.2500 ####[facility] [address] [place], [address] CO2 [Moles/Vol] 23.0 mmol/L Normal 21.0-32.0 [facility] Comment on above: Performed By: #### L 500.2500 ####[facility] [address] [place], [address] Creatinine [Mass/Vol] 1.70 mg/dL High 0.70-1.30 [facility] Comment on above: Result Comment: The validity of the calculated GFR GFRAA in patients over70 years has not been determined. Clinical correlation isessential. Performed By: #### L 500.2500 ####[facility] [address] [place], [address] ECRCL 41.75 ml/min Normal [facility] Comment on above: Performed By: #### L 500.2500 ####[facility] [address] [place], [address] EST GFR - AA 51 mL/min Low >60 [facility] Comment on above: Result Comment: Afri can [place] GFR Calc Performed By: #### L 500.2500 ####[facility] [address] [place], [address] GAP 7 Normal 5-15 [facility] Comment on above: Performed By: #### L 500.2500 ####[facility] [address] [place], [address] GFR/1.73 sq M.predicted among non-blacks MDRD (S/P/Bld) [Vol rate/Area] 43 mL/min/{1.73_m2} Low >60 [facility] Comment on above: Result Comment: Non- GFR Calc Performed By: #### L 500.2500 ####[facility] [address] [place], [address] Glucose [Mass/Vol] 95 mg/dL Normal 74-106 [facility] Comment on above: Performed By: #### L 500.2500 ####[facility] [address] [place], [address] Potassium [Moles/Vol] 4.2 mmol/L Normal 3.5-5.1 [facility] Comment on above: Performed By: #### L 500.2500 ####[facility] [address] [place], [address] Sodium [Moles/Vol] 142 mmol/L Normal 136-145 [facility] Comment on above: Performed By: #### L 500.2500 ####[facility] [address] [place], [address] Urea nitrogen [Mass/Vol] 20 mg/dL High 7-18 [facility] Comment on above: Performed By: #### L 500.2500 ####[facility] [address] [place], [address] Discharge Instructionon Discharge Instruction Normal [facility] CBC W/Diff, Automatedon PATH REV Reviewed Normal [facility] Comment on above: Result Comment: Neut rophilic leukocytosis.Macrocytic anemia.Clinical correlation suggested.Daniele Sandy D.O. 03/19/24 AMENDED REPORT 03/19/24 1419 PATH REV previously reported as: August foll Performed By: #### L 100.0100 ####[facility] [address] [place], [address] PATH REV Reviewed Normal [facility] Comment on above: Result Comment: LYMP HOCYTOSIS CONSISTENT WITH CLLMacrocytic anemia.Clinical correlation necessary.Daniele Sandy D.O. 03/19/24 AMENDED REPORT 03/19/24 1414 PATH REV previously reported as: August foll Performed By: #### L 100.0100, L500.4050 ####[facility] [address] [place], [address] Respiratory Cultureon 2023 RESPC Normal [facility] Comment on above: Performed By: #### M 100.678, M100.2400, M100.2000 ####[facility] [address] [place], [address] Urine Cultureon 03-19-2024 URC Normal [facility] Comment on above: Performed By: #### L 400.0001, M100.2200 ####[facility] [address] [place], [address] CBC W/Diff, Automatedon 0 PATH REV Reviewed Normal [facility] Comment on above: Result Comment: ABSO LUTE LYMPHOCYTOSIS SUGGESTIVE OF PROLIFERATIVE DISORDERMacrocytic anemia.Clinical correlation necessary.Daniele Sandy D.O. 03/18/24 AMENDED REPORT 03/18/24 1441 PATH REV previously reported as: August Performed By: #### L 300.4310, L500.4050, L503.6005, L100.0100, L300.3900, L501.4020 ####[facility] [address] [place], [address] Comprehensive Metabolic Prof ilon 03-18-2024 Albumin [Mass/Vol] 2.7 g/dL Low 3.2-5.0 [facility] Comment on above: Performed By: #### L 100.0100, L500.4050 ####[facility] [address] [place], [address] Albumin/Globulin [Mass ratio] 1.0 {ratio} Normal 0.9-2.4 [facility] Comment on above: Performed By: #### L 100.0100, L500.4050 ####[facility] [address] [place], [address] ALK P 66 U/L Normal 45-117 [facility] Comment on above: Performed By: #### L 100.0100, L500.4050 ####[facility] [address] [place], [address] ALT [Catalytic activity/Vol] 8 U/L Low 16-61 [facility] Comment on above: Performed By: #### L 100.0100, L500.4050 ####[facility] [address] [place], [address] AST [Catalytic activity/Vol] 8 U/L Low 15-37 [facility] Comment on above: Performed By: #### L 100.0100, L500.4050 ####[facility] [address] [place], [address] Bilirubin [Mass/Vol] 0.40 mg/dL Normal 0.20-1.00 [facility] Comment on above: Result Comment: For patients on eltrombopag therapy, use of Dimension [place] TBIL is not recommended. Performed By: #### L 100.0100, L500.4050 ####[facility] [address] [place], [address] BUN/CRE 14.5 RATIO Normal 10-20 [facility] Comment on above: Performed By: #### L 100.0100, L500.4050 ####[facility] [address] [place], [address] [place],Total 8.5 mg/dL Normal 8.5-10.1 [facility] Comment on above: Performed By: #### L 100.0100, L500.4050 ####[facility] [address] [place], [address] Chloride [Moles/Vol] 114 mmol/L High 98-107 [facility] Comment on above: Performed By: #### L 100.0100, L500.4050 ####[facility] [address] [place], [address] CO2 [Moles/Vol] 23.0 mmol/L Normal 21.0-32.0 [facility] Comment on above: Performed By: #### L 100.0100, L500.4050 ####[facility] [address] [place], [address] Creatinine [Mass/Vol] 1.52 mg/dL High 0.70-1.30 [facility] Comment on above: Result Comment: The validity of the calculated GFR GFRAA in patients over70 years has not been determined. Clinical correlation isessential. Performed By: #### L 100.0100, L500.4050 ####[facility] [address] [place], [address] ECRCL 46.69 ml/min Normal [facility] Comment on above: Performed By: #### L 100.0100, L500.4050 ####[facility] [address] [place], [address] EST GFR - AA 59 mL/min Low >60 [facility] Comment on above: Result Comment: Afri can [place] GFR Calc Performed By: #### L 100.0100, L500.4050 ####[facility] [address] [place], [address] GAP 6 Normal 5-15 [facility] Comment on above: Performed By: #### L 100.0100, L500.4050 ####[facility] [address] [place], [address] GFR/1.73 sq M.predicted among non-blacks MDRD (S/P/Bld) [Vol rate/Area] 48 mL/min/{1.73_m2} Low >60 [facility] Comment on above: Result Comment: Non- GFR Calc Performed By: #### L 100.0100, L500.4050 ####[facility] [address] [place], [address] Globulin (S) [Mass/Vol] 2.7 g/dL Normal 2.2-4.2 [facility] Comment on above: Performed By: #### L 100.0100, L500.4050 ####[facility] [address] [place], [address] Glucose [Mass/Vol] 105 mg/dL Normal 74-106 [facility] Comment on above: Result Comment: Fast ing Glucose result from 100 to 125 mg/dLsuggests IMPAIRED HOMEOSTASIS per A.D.A. criteria. Performed By: #### L 100.0100, L500.4050 ####[facility] [address] [place], [address] Potassium [Moles/Vol] 3.9 mmol/L Normal 3.5-5.1 [facility] Comment on above: Performed By: #### L 100.0100, L500.4050 ####[facility] [address] [place], [address] Sodium [Moles/Vol] 143 mmol/L Normal 136-145 [facility] Comment on above: Performed By: #### L 100.0100, L500.4050 ####[facility] [address] [place], [address] T PROT 5.4 g/dL Low 6.4-8.2 [facility] Comment on above: Performed By: #### L 100.0100, L500.4050 ####[facility] [address] [place], [address] Urea nitrogen [Mass/Vol] 22 mg/dL High 7-18 [facility] Comment on above: Performed By: #### L 100.0100, L500.4050 ####[facility] [address] [place], [address] Consultation - Infectious Dx on 03-18-2024 Consultation - Infectious Dx Normal [facility] Consultation - Intensiviston 03-18-2024 Consultation - Senior Functional Analyst Normal [facility] RESPIRATORY PANEL MOLECULARo n 03-18-2024 RP PANEL Normal [facility] Comment on above: Performed By: #### M 100.638 ####[facility] [address] [place], [address] 12 Lead EKGon 03-17-2024 12 Lead EKG Normal [facility] CPK Total, Creatine Kinaseon 03-17-2024 CPK TOTAL 18 U/L Low 39-308 [facility] Comment on above: Performed By: #### L 501.3620, L500.4050 ####[facility] [address] [place], [address] Chest PA and Lateralon 03-17 Chest PA and Lateral Normal [facility] Comprehensive Metabolic Prof ilon 12-04-2024 Albumin [Mass/Vol] 3.2 g/dL Normal 3.2-5.0 [facility] Comment on above: Performed By: #### L 501.3620, L500.4050 ####[facility] [address] [place], [address] Albumin/Globulin [Mass ratio] 1.1 {ratio} Normal 0.9-2.4 [facility] Comment on above: Performed By: #### L 501.3620, L500.4050 ####[facility] [address] [place], [address] ALK P 77 U/L Normal 45-117 [facility] Comment on above: Performed By: #### L 501.3620, L500.4050 ####[facility] [address] [place], [address] ALT [Catalytic activity/Vol] 8 U/L Low 16-61 [facility] Comment on above: Performed By: #### L 501.3620, L500.4050 ####[facility] [address] [place], [address] AST [Catalytic activity/Vol] 9 U/L Low 15-37 [facility] Comment on above: Performed By: #### L 501.3620, L500.4050 ####[facility] [address] [place], [address] Bilirubin [Mass/Vol] 0.80 mg/dL Normal 0.20-1.00 [facility] Comment on above: Result Comment: For patients on eltrombopag therapy, use of Dimension [place] TBIL is not recommended. Performed By: #### L 501.3620, L500.4050 ####[facility] [address] [place], [address] BUN/CRE 14.6 RATIO Normal 10-20 [facility] Comment on above: Performed By: #### L 501.3620, L500.4050 ####[facility] [address] [place], [address] CA,Total 9.0 mg/dL Normal 8.5-10.1 [facility] Comment on above: Performed By: #### L 501.3620, L500.4050 ####[facility] [address] [place], [address] Chloride [Moles/Vol] 107 mmol/L Normal 98-107 [facility] Comment on above: Performed By: #### L 501.3620, L500.4050 ####[facility] [address] [place], [address] CO2 [Moles/Vol] 24.0 mmol/L Normal 21.0-32.0 [facility] Comment on above: Performed By: #### L 501.3620, L500.4050 ####[facility] [address] [place], [address] Creatinine [Mass/Vol] 1.85 mg/dL High 0.70-1.30 [facility] Comment on above: Result Comment: The validity of the calculated GFR GFRAA in patients over70 years has not been determined. Clinical correlation isessential. Performed By: #### L 501.3620, L500.4050 ####[facility] [address] [place], [address] ECRCL 40.48 ml/min Normal [facility] Comment on above: Performed By: #### L 501.3620, L500.4050 ####[facility] [address] [place], [address] EST GFR - AA 47 mL/min Low >60 [facility] Comment on above: Result Comment: Afri can [place] GFR Calc Performed By: #### L 501.3620, L500.4050 ####[facility] [address] [place], [address] GAP 7 Normal 5-15 [facility] Comment on above: Performed By: #### L 501.3620, L500.4050 ####[facility] [address] [place], [address] GFR/1.73 sq M.predicted among non-blacks MDRD (S/P/Bld) [Vol rate/Area] 39 mL/min/{1.73_m2} Low >60 [facility] Comment on above: Result Comment: Non- GFR Calc Performed By: #### L 501.3620, L500.4050 ####[facility] [address] [place], [address] Globulin (S) [Mass/Vol] 3.0 g/dL Normal 2.2-4.2 [facility] Comment on above: Performed By: #### L 501.3620, L500.4050 ####[facility] [address] [place], [address] Glucose [Mass/Vol] 147 mg/dL High 74-106 [facility] Comment on above: Result Comment: Fast ing Glucose result greater than or equal to 126 mg/dLsuggests DIABETES MELLITUS per A.D.A. criteria. Performed By: #### L 501.3620, L500.4050 ####[facility] [address] [place], [address] Potassium [Moles/Vol] 4.0 mmol/L Normal 3.5-5.1 [facility] Comment on above: Performed By: #### L 501.3620, L500.4050 ####[facility] [address] [place], [address] Sodium [Moles/Vol] 138 mmol/L Normal 136-145 [facility] Comment on above: Performed By: #### L 501.3620, L500.4050 ####[facility] [address] [place], [address] T PROT 6.2 g/dL Low 6.4-8.2 [facility] Comment on above: Performed By: #### L 501.3620, L500.4050 ####[facility] [address] [place], [address] Urea nitrogen [Mass/Vol] 27 mg/dL High 7-18 [facility] Comment on above: Performed By: #### L 501.3620, L500.4050 ####[facility] [address] [place], [address] Albumin [Mass/Vol] 3.4 g/dL Normal 3.2-5.0 [facility] Comment on above: Order Comment: 'TROP ' Serial specimen #1, #2 or #3: 1 Performed By: #### L 300.4310, L500.4050, L503.6005, L100.0100, L300.3900, L501.4020 ####[facility] [address] [place], [address] Albumin/Globulin [Mass ratio] 1.2 {ratio} Normal 0.9-2.4 [facility] Comment on above: Order Comment: 'TROP ' Serial specimen #1, #2 or #3: 1 Performed By: #### L 300.4310, L500.4050, L503.6005, L100.0100, L300.3900, L501.4020 ####[facility] [address] [place], [address] ALK P 78 U/L Normal 45-117 [facility] Comment on above: Order Comment: 'TROP ' Serial specimen #1, #2 or #3: 1 Performed By: #### L 300.4310, L500.4050, L503.6005, L100.0100, L300.3900, L501.4020 ####[facility] [address] [place], [address] ALT [Catalytic activity/Vol] 11 U/L Low 16-61 [facility] Comment on above: Order Comment: 'TROP ' Serial specimen #1, #2 or #3: 1 Performed By: #### L 300.4310, L500.4050, L503.6005, L100.0100, L300.3900, L501.4020 ####[facility] [address] [place], [address] AST [Catalytic activity/Vol] 6 U/L Low 15-37 [facility] Comment on above: Order Comment: 'TROP ' Serial specimen #1, #2 or #3: 1 Performed By: #### L 300.4310, L500.4050, L503.6005, L100.0100, L300.3900, L501.4020 ####[facility] [address] [place], [address] Bilirubin [Mass/Vol] 1.30 mg/dL High 0.20-1.00 [facility] Comment on above: Order Comment: 'TROP ' Serial specimen #1, #2 or #3: 1 Result Comment: For patients on eltrombopag therapy, use of Dimension [place] TBIL is not recommended. Performed By: #### L 300.4310, L500.4050, L503.6005, L100.0100, L300.3900, L501.4020 ####[facility] [address] [place], [address] BUN/CRE 14.4 RATIO Normal 10-20 [facility] Comment on above: Order Comment: 'TROP ' Serial specimen #1, #2 or #3: 1 Performed By: #### L 300.4310, L500.4050, L503.6005, L100.0100, L300.3900, L501.4020 ####[facility] [address] [place], [address] CA,Total 9.3 mg/dL Normal 8.5-10.1 [facility] Comment on above: Order Comment: 'TROP ' Serial specimen #1, #2 or #3: 1 Performed By: #### L 300.4310, L500.4050, L503.6005, L100.0100, L300.3900, L501.4020 ####[facility] [address] [place], [address] Chloride [Moles/Vol] 105 mmol/L Normal 98-107 [facility] Comment on above: Order Comment: 'TROP ' Serial specimen #1, #2 or #3: 1 Performed By: #### L 300.4310, L500.4050, L503.6005, L100.0100, L300.3900, L501.4020 ####[facility] [address] [place], [address] CO2 [Moles/Vol] 23.0 mmol/L Normal 21.0-32.0 [facility] Comment on above: Order Comment: 'TROP ' Serial specimen #1, #2 or #3: 1 Performed By: #### L 300.4310, L500.4050, L503.6005, L100.0100, L300.3900, L501.4020 ####[facility] [address] [place], [address] Creatinine [Mass/Vol] 1.94 mg/dL High 0.70-1.30 [facility] Comment on above: Order Comment: 'TROP ' Serial specimen #1, #2 or #3: 1 Result Comment: The validity of the calculated GFR GFRAA in patients over70 years has not been determined. Clinical correlation isessential. Performed By: #### L 300.4310, L500.4050, L503.6005, L100.0100, L300.3900, L501.4020 ####[facility] [address] [place], [address] ECRCL 38.60 ml/min Normal [facility] Comment on above: Order Comment: 'TROP ' Serial specimen #1, #2 or #3: 1 Performed By: #### L 300.4310, L500.4050, L503.6005, L100.0100, L300.3900, L501.4020 ####[facility] [address] [place], [address] EST GFR - AA 44 mL/min Low >60 [facility] Comment on above: Order Comment: 'TROP ' Serial specimen #1, #2 or #3: 1 Result Comment: Afri can [place] GFR Calc Performed By: #### L 300.4310, L500.4050, L503.6005, L100.0100, L300.3900, L501.4020 ####[facility] [address] [place], [address] GAP 8 Normal 5-15 [facility] Comment on above: Order Comment: 'TROP ' Serial specimen #1, #2 or #3: 1 Performed By: #### L 300.4310, L500.4050, L503.6005, L100.0100, L300.3900, L501.4020 ####[facility] [address] [place], [address] GFR/1.73 sq M.predicted among non-blacks MDRD (S/P/Bld) [Vol rate/Area] 37 mL/min/{1.73_m2} Low >60 [facility] Comment on above: Order Comment: 'TROP ' Serial specimen #1, #2 or #3: 1 Result Comment: Non- GFR Calc Performed By: #### L 300.4310, L500.4050, L503.6005, L100.0100, L300.3900, L501.4020 ####[facility] [address] [place], [address] Globulin (S) [Mass/Vol] 2.8 g/dL Normal 2.2-4.2 [facility] Comment on above: Order Comment: 'TROP ' Serial specimen #1, #2 or #3: 1 Performed By: #### L 300.4310, L500.4050, L503.6005, L100.0100, L300.3900, L501.4020 ####[facility] [address] [place], [address] Glucose [Mass/Vol] 120 mg/dL High 74-106 [facility] Comment on above: Order Comment: 'TROP ' Serial specimen #1, #2 or #3: 1 Result Comment: Fast ing Glucose result from 100 to 125 mg/dLsuggests IMPAIRED HOMEOSTASIS per A.D.A. criteria. Performed By: #### L 300.4310, L500.4050, L503.6005, L100.0100, L300.3900, L501.4020 ####[facility] [address] [place], [address] Potassium [Moles/Vol] 3.9 mmol/L Normal 3.5-5.1 [facility] Comment on above: Order Comment: 'TROP ' Serial specimen #1, #2 or #3: 1 Performed By: #### L 300.4310, L500.4050, L503.6005, L100.0100, L300.3900, L501.4020 ####[facility] [address] [place], [address] Sodium [Moles/Vol] 136 mmol/L Normal 136-145 [facility] Comment on above: Order Comment: 'TROP ' Serial specimen #1, #2 or #3: 1 Performed By: #### L 300.4310, L500.4050, L503.6005, L100.0100, L300.3900, L501.4020 ####[facility] [address] [place], [address] T PROT 6.2 g/dL Low 6.4-8.2 [facility] Comment on above: Order Comment: 'TROP ' Serial specimen #1, #2 or #3: 1 Performed By: #### L 300.4310, L500.4050, L503.6005, L100.0100, L300.3900, L501.4020 ####[facility] [address] [place], [address] Urea nitrogen [Mass/Vol] 28 mg/dL High 7-18 [facility] Comment on above: Order Comment: 'TROP ' Serial specimen #1, #2 or #3: 1 Performed By: #### L 300.4310, L500.4050, L503.6005, L100.0100, L300.3900, L501.4020 ####[facility] [address] [place], [address] Emergency Department Summary on 03-17-2024 Emergency Department Summary Normal [facility] Gram Stainon 03-17-2024 GS Acceptable Specimen? Yes (<25 Epithelial cells per/lpf) Gram Stain 2+ White Blood Cells 3+ Gram negative cocco bacillus Rare Gram positive cocci Normal [facility] Comment on above: Performed By: #### M 100.678, M100.2400, M100.2000 ####[facility] [address] [place], [address] H AND P Exam - Hospitaliston 03-17-2024 H&P Exam - Hospitalist Normal [facility] L501.4020on 03-17-2024 TROPONIN-I HS 9 pg/mL Normal 3.0-78.0 [facility] Comment on above: Order Comment: 'TROP ' Serial specimen #1, #2 or #3: 1 Result Comment: Plea se Note: New Test Units and Gender Specific Reference Ranges. For more information see Policy Stat Procedure [place] High Sensitivity Troponin (TNIH) and attachments. Performed By: #### L 300.4310, L500.4050, L503.6005, L100.0100, L300.3900, L501.4020 ####[facility] [address] [place], [address] Lactic Acidon 03-17-2024 Lactate [Moles/Vol] 2.0 mmol/L Normal 0.4-1.9 [facility] Comment on above: Result Comment: Crit ical Result(s) Called at: 16:12:47 03/17/2024 by:CAROLEE CHAVEZ TO WES NIELSEN. Results read back by same. Performed By: #### L 503.6005 ####[facility] [address] [place], [address] Lactate [Moles/Vol] 2.5 mmol/L Invalid Interpretation Code 0.4-1.9 [facility] Comment on above: Order Comment: Y Result Comment: Crit ical Result(s) Called at: 11:17:55 03/17/2024 by:CAROLEE CHAVEZ TO MEHUL VALENTINE. Results read back bysame. Performed By: #### L 300.4310, L500.4050, L503.6005, L100.0100, L300.3900, L501.4020 ####[facility] [address] [place], [address] Legionella Antigen Urineon 1 05-18-2023 LEGU Normal [facility] Comment on above: Performed By: #### M 300.4500, M300.4600 ####[facility] [address] [place], [address] M100.678on 03-17-2024 M100.678 Pending SARS-CoV-2 (COVID 19) Negative INFLUENZA A Negative INFLUENZA B Negative RSV PCR Negative Normal [facility] Comment on above: Performed By: #### M 100.678, M100.2400, M100.2000 ####[facility] [address] [place], [address] Partial Thromboplast Timeon 03-17-2024 aPTT Coag (Bld) [Time] 35.3 s Normal 24.1-36.2 [facility] Comment on above: Performed By: #### L 300.4310, L500.4050, L503.6005, L100.0100, L300.3900, L501.4020 ####[facility] [address] [place], [address] Prothrombin Time w/INRon INR Coag (PPP) [Relative time] 1.7 {INR} Normal [facility] Comment on above: Performed By: #### L 300.4310, L500.4050, L503.6005, L100.0100, L300.3900, L501.4020 ####[facility] [address] [place], [address] PT Coag (PPP) [Time] 20.3 s High 11.7-14.9 [facility] Comment on above: Performed By: #### L 300.4310, L500.4050, L503.6005, L100.0100, L300.3900, L501.4020 ####[facility] [address] [place], [address] Strep pneumoniae Antig(UR,CS F)on 03-17-2024 STPAG Normal [facility] Comment on above: Performed By: #### M 300.4500, M300.4600 ####[facility] [address] [place], [address] Surgery Visit Reporton 03-17 Surgery Visit Report Normal [facility] Urinalysis, Completeon 03-17 BACTERIA 2+ /hpf Normal None Seen [facility] Comment on above: Order Comment: COLLE CTOR TO SPECIFY Performed By: #### L 400.0001, M100.2200 ####[facility] [address] [place], [address] CAST,HYALINE 0-5 SEEN Normal 0-5 [facility] Comment on above: Order Comment: COLLE CTOR TO SPECIFY Performed By: #### L 400.0001, ####[facility] [address] [place], [address] EPI,SQUAMOUS 0-5 SEEN Normal 0-5 [facility] Comment on above: Order Comment: LUIS ALFREDO CTOR TO SPECIFY Performed By: #### L 400.0001, .2199 ####[facility] [address] [place], [address] WBC 0-5 SEEN Normal 0-5 [facility] Comment on above: Order Comment: LUIS ALFREDO CTOR TO SPECIFY Performed By: #### L 400.0001, ####[facility] [address] [place], [address] BILIRUBIN URINE Negative Normal Negative [facility] Comment on above: Order Comment: LUIS ALFREDO CTOR TO SPECIFY Performed By: #### L 400.0001, ####[facility] [address] [place], [address] Clarity (U) Sl. Cloudy Normal Clear [facility] Comment on above: Order Comment: LUIS ALFREDO CTOR TO SPECIFY Performed By: #### L 400.0001, ####[facility] [address] [place], [address] Color (U) Yellow Normal Yellow [facility] Comment on above: Order Comment: LUIS ALFREDO CTOR TO SPECIFY Performed By: #### L 400.0001, ####[facility] [address] [place], [address] GLUCOSE, UR Normal Normal Normal [facility] Comment on above: Order Comment: LUIS ALFREDO CTOR TO SPECIFY Performed By: #### L 400.0001, ####[facility] [address] [place], [address] KETONE UR 5 mg/dl Abnormal Negative [facility] Comment on above: Order Comment: LUIS ALFREDO CTOR TO SPECIFY Performed By: #### L 400.0001, ####[facility] [address] [place], [address] LEUK ESTERASE 25 /ul Abnormal Negative [facility] Comment on above: Order Comment: LUIS ALFREDO CTOR TO SPECIFY Performed By: #### L 400.0001, ####[facility] [address] [place], [address] Nitrite Ql (U) Negative Normal Negative [facility] Comment on above: Order Comment: LUIS ALFREDO CTOR TO SPECIFY Performed By: #### L 400.0001, ####[facility] [address] [place], [address] OCCULT BLOOD-UR Negative Normal Negative [facility] Comment on above: Order Comment: LUIS ALFREDO CTOR TO SPECIFY Performed By: #### L 400.0001, ####[facility] [address] [place], [address] pH UR 6.5 Normal 5.0 - 8.0 [facility] Comment on above: Order Comment: LUIS ALFREDO CTOR TO SPECIFY Performed By: #### L 400.0001, ####[facility] [address] [place], [address] PROT DIPSTX 30 mg/dl Abnormal Negative [facility] Comment on above: Order Comment: LUIS ALFREDO CTOR TO SPECIFY Performed By: #### L 400.0001, ####[facility] [address] [place], [address] SP.GR. DIPSTX 1.010 Normal 1.002-1.030 [facility] Comment on above: Order Comment: LUIS ALFREDO CTOR TO SPECIFY Performed By: #### L 400.0001, ####[facility] [address] [place], [address] UROBILI 1 mg/dl Abnormal Normal [facility] Comment on above: Order Comment: COLLE CTOR TO SPECIFY Performed By: #### L 400.0001, M100.2200 ####[facility] [address] [place], [address] Mucus Ql (Urine sed) 0 SEEN Normal [facility] Comment on above: Order Comment: COLLE CTOR TO SPECIFY Performed By: #### L 400.0001, M100.2200 ####[facility] [address] [place], [address] RBC 0 SEEN Normal 0-5 [facility] Comment on above: Order Comment: COLLE CTOR TO SPECIFY Performed By: #### L 400.0001, M100.2200 ####[facility] [address] [place], [address] Basic Metabolic Profile (BMP )on 03-12-2024 BUN Normal 7-18 [facility] Comment on above: Result Comment: Canc elled via OM: Order cancelled - Patient discharged Performed By: #### L 500.2500, L100.0100 ####[facility] [address] [place], [address] BUN/CRE Normal 10-20 [facility] Comment on above: Result Comment: Canc elled via OM: Order cancelled - Patient discharged Performed By: #### L 500.2500, L100.0100 ####[facility] [address] [place], [address] CA,Total Normal 8.5-10.1 [facility] Comment on above: Result Comment: Canc elled via OM: Order cancelled - Patient discharged Performed By: #### L 500.2500, L100.0100 ####[facility] [address] [place], [address] CL Normal 98-107 [facility] Comment on above: Result Comment: Canc elled via OM: Order cancelled - Patient discharged Performed By: #### L 500.2500, L100.0100 ####[facility] [address] [place], [address] CO2 Normal 21.0-32.0 [facility] Comment on above: Result Comment: Canc elled via OM: Order cancelled - Patient discharged Performed By: #### L 500.2500, L100.0100 ####[facility] [address] [place], [address] CREAT,SERUM Normal 0.70-1.30 [facility] Comment on above: Result Comment: Canc elled via OM: Order cancelled - Patient discharged Performed By: #### L 500.2500, L100.0100 ####[facility] [address] [place], [address] EST GFR Normal >60 [facility] Comment on above: Result Comment: Canc elled via OM: Order cancelled - Patient discharged Performed By: #### L 500.2500, L100.0100 ####[facility] [address] [place], [address] EST GFR - AA Normal >60 [facility] Comment on above: Result Comment: Canc elled via OM: Order cancelled - Patient discharged Performed By: #### L 500.2500, L100.0100 ####[facility] [address] [place], [address] GAP Normal 5-15 [facility] Comment on above: Result Comment: Canc elled via OM: Order cancelled - Patient discharged Performed By: #### L 500.2500, L100.0100 ####[facility] [address] [place], [address] GLU Normal 74-106 [facility] Comment on above: Result Comment: Canc elled via OM: Order cancelled - Patient discharged Performed By: #### L 500.2500, L100.0100 ####[facility] [address] [place], [address] Potassium Normal 3.5-5.1 [facility] Comment on above: Result Comment: Canc elled via OM: Order cancelled - Patient discharged Performed By: #### L 500.2500, L100.0100 ####[facility] [address] [place], [address] Basic Metabolic Profile (BMP) Normal 136-145 [facility] Comment on above: Result Comment: Canc elled via OM: Order cancelled - Patient discharged Performed By: #### L 500.2500, L100.0100 ####[facility] [address] [place], [address] CBC W/Diff, Automatedon 11-2 Absolute Neut Normal 2.0-7.7 [facility] Comment on above: Result Comment: Canc elled via OM: Order cancelled - Patient discharged Performed By: #### L 500.2500, L100.0100 ####[facility] [address] [place], [address] HCT Normal 40-54 [facility] Comment on above: Result Comment: Canc elled via OM: Order cancelled - Patient discharged Performed By: #### L 500.2500, L100.0100 ####[facility] [address] [place], [address] HGB Normal 13.0-16.5 [facility] Comment on above: Result Comment: Canc elled via OM: Order cancelled - Patient discharged Performed By: #### L 500.2500, L100.0100 ####[facility] [address] [place], [address] MCH Normal 27.0-32.0 [facility] Comment on above: Result Comment: Canc elled via OM: Order cancelled - Patient discharged Performed By: #### L 500.2500, L100.0100 ####[facility] [address] [place], [address] MCHC Normal 32-36 [facility] Comment on above: Result Comment: Canc elled via OM: Order cancelled - Patient discharged Performed By: #### L 500.2500, L100.0100 ####[facility] [address] [place], [address] MCV Normal 80-94 [facility] Comment on above: Result Comment: Canc elled via OM: Order cancelled - Patient discharged Performed By: #### L 500.2500, L100.0100 ####[facility] [address] [place], [address] NEUT% Normal 47-70 [facility] Comment on above: Result Comment: Canc elled via OM: Order cancelled - Patient discharged Performed By: #### L 500.2500, L100.0100 ####[facility] [address] [place], [address] PLT Normal 150-450 [facility] Comment on above: Result Comment: Canc elled via OM: Order cancelled - Patient discharged Performed By: #### L 500.2500, L100.0100 ####[facility] [address] [place], [address] RBC Normal 4.6-6.2 [facility] Comment on above: Result Comment: Canc elled via OM: Order cancelled - Patient discharged Performed By: #### L 500.2500, L100.0100 ####[facility] [address] [place], [address] RDW CV Normal 11.6-14.6 [facility] Comment on above: Result Comment: Canc elled via OM: Order cancelled - Patient discharged Performed By: #### L 500.2500, L100.0100 ####[facility] [address] [place], [address] RDW SD Normal 35.1-43.9 [facility] Comment on above: Result Comment: Canc elled via OM: Order cancelled - Patient discharged Performed By: #### L 500.2500, L100.0100 ####[facility] [address] [place], [address] WBC Normal 4.4-11.0 [facility] Comment on above: Result Comment: Canc elled via OM: Order cancelled - Patient discharged Performed By: #### L 500.2500, L100.0100 ####[facility] [address] [place], [address] Basic Metabolic Profile (BMP )on 03-05-2024 BUN Normal 7-18 [facility] Comment on above: Result Comment: Canc elled via OM: Order cancelled - Patient discharged Performed By: #### L 100.0100, L500.2500 ####[facility] [address] [place], [address] BUN/CRE Normal 10-20 [facility] Comment on above: Result Comment: Canc elled via OM: Order cancelled - Patient discharged Performed By: #### L 100.0100, L500.2500 ####[facility] [address] [place], [address] CA,Total Normal 8.5-10.1 [facility] Comment on above: Result Comment: Canc elled via OM: Order cancelled - Patient discharged Performed By: #### L 100.0100, L500.2500 ####[facility] [address] [place], [address] CL Normal 98-107 [facility] Comment on above: Result Comment: Canc elled via OM: Order cancelled - Patient discharged Performed By: #### L 100.0100, L500.2500 ####[facility] [address] [place], [address] CO2 Normal 21.0-32.0 [facility] Comment on above: Result Comment: Canc elled via OM: Order cancelled - Patient discharged Performed By: #### L 100.0100, L500.2500 ####[facility] [address] [place], [address] CREAT,SERUM Normal 0.70-1.30 [facility] Comment on above: Result Comment: Canc elled via OM: Order cancelled - Patient discharged Performed By: #### L 100.0100, L500.2500 ####[facility] [address] [place], [address] EST GFR Normal >60 [facility] Comment on above: Result Comment: Canc elled via OM: Order cancelled - Patient discharged Performed By: #### L 100.0100, L500.2500 ####[facility] [address] [place], [address] EST GFR - AA Normal >60 [facility] Comment on above: Result Comment: Canc elled via OM: Order cancelled - Patient discharged Performed By: #### L 100.0100, L500.2500 ####[facility] [address] [place], [address] GAP Normal 5-15 [facility] Comment on above: Result Comment: Canc elled via OM: Order cancelled - Patient discharged Performed By: #### L 100.0100, L500.2500 ####[facility] [address] [place], [address] GLU Normal 74-106 [facility] Comment on above: Result Comment: Canc elled via OM: Order cancelled - Patient discharged Performed By: #### L 100.0100, L500.2500 ####[facility] [address] [place], [address] Potassium Normal 3.5-5.1 [facility] Comment on above: Result Comment: Canc elled via OM: Order cancelled - Patient discharged Performed By: #### L 100.0100, L500.2500 ####[facility] [address] [place], [address] Basic Metabolic Profile (BMP) Normal 136-145 [facility] Comment on above: Result Comment: Canc elled via OM: Order cancelled - Patient discharged Performed By: #### L 100.0100, L500.2500 ####[facility] [address] [place], [address] CBC W/Diff, Automatedon 11-2 Absolute Neut Normal 2.0-7.7 [facility] Comment on above: Result Comment: Canc elled via OM: Order cancelled - Patient discharged Performed By: #### L 100.0100, L500.2500 ####[facility] [address] [place], [address] HCT Normal 40-54 [facility] Comment on above: Result Comment: Canc elled via OM: Order cancelled - Patient discharged Performed By: #### L 100.0100, L500.2500 ####[facility] [address] [place], [address] HGB Normal 13.0-16.5 [facility] Comment on above: Result Comment: Canc elled via OM: Order cancelled - Patient discharged Performed By: #### L 100.0100, L500.2500 ####[facility] [address] [place], [address] MCH Normal 27.0-32.0 [facility] Comment on above: Result Comment: Canc elled via OM: Order cancelled - Patient discharged Performed By: #### L 100.0100, L500.2500 ####[facility] [address] [place], [address] MCHC Normal 32-36 [facility] Comment on above: Result Comment: Canc elled via OM: Order cancelled - Patient discharged Performed By: #### L 100.0100, L500.2500 ####[facility] [address] [place], [address] MCV Normal 80-94 [facility] Comment on above: Result Comment: Canc elled via OM: Order cancelled - Patient discharged Performed By: #### L 100.0100, L500.2500 ####[facility] [address] [place], [address] NEUT% Normal 47-70 [facility] Comment on above: Result Comment: Canc elled via OM: Order cancelled - Patient discharged Performed By: #### L 100.0100, L500.2500 ####[facility] [address] [place], [address] PLT Normal 150-450 [facility] Comment on above: Result Comment: Canc elled via OM: Order cancelled - Patient discharged Performed By: #### L 100.0100, L500.2500 ####[facility] [address] [place], [address] RBC Normal 4.6-6.2 [facility] Comment on above: Result Comment: Canc elled via OM: Order cancelled - Patient discharged Performed By: #### L 100.0100, L500.2500 ####[facility] [address] [place], [address] RDW CV Normal 11.6-14.6 [facility] Comment on above: Result Comment: Canc elled via OM: Order cancelled - Patient discharged Performed By: #### L 100.0100, L500.2500 ####[facility] [address] [place], [address] RDW SD Normal 35.1-43.9 [facility] Comment on above: Result Comment: Canc elled via OM: Order cancelled - Patient discharged Performed By: #### L 100.0100, L500.2500 ####[facility] [address] [place], [address] WBC Normal 4.4-11.0 [facility] Comment on above: Result Comment: Canc elled via OM: Order cancelled - Patient discharged Performed By: #### L 100.0100, L500.2500 ####[facility] [address] [place], [address] Basic Metabolic Profile (BMP )on 02-27-2024 BUN Normal 7-18 [facility] Comment on above: Result Comment: Canc elled via OM: Order cancelled - Patient discharged Performed By: #### L 100.0100, L500.2500 ####[facility] [address] [place], [address] BUN/CRE Normal 10-20 [facility] Comment on above: Result Comment: Canc elled via OM: Order cancelled - Patient discharged Performed By: #### L 100.0100, L500.2500 ####[facility] [address] [place], [address] CA,Total Normal 8.5-10.1 [facility] Comment on above: Result Comment: Canc elled via OM: Order cancelled - Patient discharged Performed By: #### L 100.0100, L500.2500 ####[facility] [address] [place], [address] CL Normal 98-107 [facility] Comment on above: Result Comment: Canc elled via OM: Order cancelled - Patient discharged Performed By: #### L 100.0100, L500.2500 ####[facility] [address] [place], [address] CO2 Normal 21.0-32.0 [facility] Comment on above: Result Comment: Canc elled via OM: Order cancelled - Patient discharged Performed By: #### L 100.0100, L500.2500 ####[facility] [address] [place], [address] CREAT,SERUM Normal 0.70-1.30 [facility] Comment on above: Result Comment: Canc elled via OM: Order cancelled - Patient discharged Performed By: #### L 100.0100, L500.2500 ####[facility] [address] [place], [address] EST GFR Normal >60 [facility] Comment on above: Result Comment: Canc elled via OM: Order cancelled - Patient discharged Performed By: #### L 100.0100, L500.2500 ####[facility] [address] [place], [address] EST GFR - AA Normal >60 [facility] Comment on above: Result Comment: Canc elled via OM: Order cancelled - Patient discharged Performed By: #### L 100.0100, L500.2500 ####[facility] [address] [place], [address] GAP Normal 5-15 [facility] Comment on above: Result Comment: Canc elled via OM: Order cancelled - Patient discharged Performed By: #### L 100.0100, L500.2500 ####[facility] [address] [place], [address] GLU Normal 74-106 [facility] Comment on above: Result Comment: Canc elled via OM: Order cancelled - Patient discharged Performed By: #### L 100.0100, L500.2500 ####[facility] [address] [place], [address] Potassium Normal 3.5-5.1 [facility] Comment on above: Result Comment: Canc elled via OM: Order cancelled - Patient discharged Performed By: #### L 100.0100, L500.2500 ####[facility] [address] [place], [address] Basic Metabolic Profile (BMP) Normal 136-145 [facility] Comment on above: Result Comment: Canc elled via OM: Order cancelled - Patient discharged Performed By: #### L 100.0100, L500.2500 ####[facility] [address] [place], [address] CBC W/Diff, Automatedon 11- Absolute Neut Normal 2.0-7.7 [facility] Comment on above: Result Comment: Canc elled via OM: Order cancelled - Patient discharged Performed By: #### L 100.0100, L500.2500 ####[facility] [address] [place], [address] HCT Normal 40-54 [facility] Comment on above: Result Comment: Canc elled via OM: Order cancelled - Patient discharged Performed By: #### L 100.0100, L500.2500 ####[facility] [address] [place], [address] HGB Normal 13.0-16.5 [facility] Comment on above: Result Comment: Canc elled via OM: Order cancelled - Patient discharged Performed By: #### L 100.0100, L500.2500 ####[facility] [address] [place], [address] MCH Normal 27.0-32.0 [facility] Comment on above: Result Comment: Canc elled via OM: Order cancelled - Patient discharged Performed By: #### L 100.0100, L500.2500 ####[facility] [address] [place], [address] MCHC Normal 32-36 [facility] Comment on above: Result Comment: Canc elled via OM: Order cancelled - Patient discharged Performed By: #### L 100.0100, L500.2500 ####[facility] [address] [place], [address] MCV Normal 80-94 [facility] Comment on above: Result Comment: Canc elled via OM: Order cancelled - Patient discharged Performed By: #### L 100.0100, L500.2500 ####[facility] [address] [place], [address] NEUT% Normal 47-70 [facility] Comment on above: Result Comment: Canc elled via OM: Order cancelled - Patient discharged Performed By: #### L 100.0100, L500.2500 ####[facility] [address] [place], [address] PLT Normal 150-450 [facility] Comment on above: Result Comment: Canc elled via OM: Order cancelled - Patient discharged Performed By: #### L 100.0100, L500.2500 ####[facility] [address] [place], [address] RBC Normal 4.6-6.2 [facility] Comment on above: Result Comment: Canc elled via OM: Order cancelled - Patient discharged Performed By: #### L 100.0100, L500.2500 ####[facility] [address] [place], [address] RDW CV Normal 11.6-14.6 [facility] Comment on above: Result Comment: Canc elled via OM: Order cancelled - Patient discharged Performed By: #### L 100.0100, L500.2500 ####[facility] [address] [place], [address] RDW SD Normal 35.1-43.9 [facility] Comment on above: Result Comment: Canc elled via OM: Order cancelled - Patient discharged Performed By: #### L 100.0100, L500.2500 ####[facility] [address] [place], [address] WBC Normal 4.4-11.0 [facility] Comment on above: Result Comment: Canc elled via OM: Order cancelled - Patient discharged Performed By: #### L 100.0100, L500.2500 ####[facility] [address] [place], [address] Forearm 2 Viewson 02-27-2024 Forearm 2 Views Normal [facility] L/S Spine Min 4 Viewson 02-12 L/S Spine Min 4 Views Normal [facility] Inital Evaluation (1) - PTon 02-24-2024 Inital Evaluation (1) - PT Normal [facility] Respiratory Cultureon 2023 RESPC Normal [facility] Comment on above: Performed By: #### M 100.2000, M100.2400 ####[facility] [address] [place], [address] Basic Metabolic Profile (BMP )on 02-20-2024 BUN/CRE 20.4 RATIO High 10-20 [facility] Comment on above: Performed By: #### L 500.2500, L100.0100 ####[facility] [address] [place], [address] CA,Total 9.1 mg/dL Normal 8.5-10.1 [facility] Comment on above: Performed By: #### L 500.2500, L100.0100 ####[facility] [address] [place], [address] Chloride [Moles/Vol] 116 mmol/L High 98-107 [facility] Comment on above: Performed By: #### L 500.2500, L100.0100 ####[facility] [address] [place], [address] CO2 [Moles/Vol] 19.0 mmol/L Low 21.0-32.0 [facility] Comment on above: Performed By: #### L 500.2500, L100.0100 ####[facility] [address] [place], [address] Creatinine [Mass/Vol] 1.67 mg/dL High 0.70-1.30 [facility] Comment on above: Result Comment: The validity of the calculated GFR GFRAA in patients over70 years has not been determined. Clinical correlation isessential. Performed By: #### L 500.2500, L100.0100 ####[facility] [address] [place], [address] ECRCL 41.16 ml/min Normal [facility] Comment on above: Performed By: #### L 500.2500, L100.0100 ####[facility] [address] [place], [address] EST GFR - AA 53 mL/min Low >60 [facility] Comment on above: Result Comment: Afri can [place] GFR Calc Performed By: #### L 500.2500, L100.0100 ####[facility] [address] [place], [address] GAP 7 Normal 5-15 [facility] Comment on above: Performed By: #### L 500.2500, L100.0100 ####[facility] [address] [place], [address] GFR/1.73 sq M.predicted among non-blacks MDRD (S/P/Bld) [Vol rate/Area] 43 mL/min/{1.73_m2} Low >60 [facility] Comment on above: Result Comment: Non- GFR Calc Performed By: #### L 500.2500, L100.0100 ####[facility] [address] [place], [address] Glucose [Mass/Vol] 92 mg/dL Normal 74-106 [facility] Comment on above: Performed By: #### L 500.2500, L100.0100 ####[facility] [address] [place], [address] Potassium [Moles/Vol] 4.6 mmol/L Normal 3.5-5.1 [facility] Comment on above: Performed By: #### L 500.2500, L100.0100 ####[facility] [address] [place], [address] Sodium [Moles/Vol] 142 mmol/L Normal 136-145 [facility] Comment on above: Performed By: #### L 500.2500, L100.0100 ####[facility] [address] [place], [address] Urea nitrogen [Mass/Vol] 34 mg/dL High 7-18 [facility] Comment on above: Performed By: #### L 500.2500, L100.0100 ####[facility] [address] [place], [address] CBC W/Diff, Automatedon 11-0 PATH REV Reviewed Normal [facility] Comment on above: Result Comment: Abso lute lymphocytosis suggestive of low grade lympho-proliferative disorder.Clinical correlation is necessary.Macrocytic anemia.Clinical correlation necessary.Prashanth Machado M.D. 02/20/24 AMENDED REPORT 02/20/24 1446 PATH REV previously reported as: August Performed By: #### L 500.2500, L100.0100 ####[facility] [address] [place], [address] Gram Stainon 02-18-2024 GS List Antibiotics [place] 48 Hours? Flagyl, Omnicef Acceptable Specimen? Yes (<25 Epithelial cells per/lpf) Gram Stain 3+ Red Blood Cells Rare White Blood Cells 2+ Gram positive cocci in clusters Normal [facility] Comment on above: Performed By: #### M 100.2000, M100.2400 ####[facility] [address] [place], [address] CBC W/Diff, Automatedon 11-0 PATH REV Reviewed Normal [facility] Comment on above: Result Comment: Abso lute lymphocytosis suggestive of low grade lympho-proliferative disorder.Clinical correlation is necessary.Macrocytic anemia.Prashanth Machado M.D. 02/16/24 AMENDED REPORT 02/16/24 1419 PATH REV previously reported as: August Performed By: #### L 500.4100, L500.2500, L100.0100 ####[facility] [address] [place], [address] Basic Metabolic Profile (BMP )on 02-13-2024 BUN/CRE 18.7 RATIO Normal 10-20 [facility] Comment on above: Performed By: #### L 500.4100, L500.2500, L100.0100 ####[facility] [address] [place], [address] CA,Total 9.4 mg/dL Normal 8.5-10.1 [facility] Comment on above: Performed By: #### L 500.4100, L500.2500, L100.0100 ####[facility] [address] [place], [address] Chloride [Moles/Vol] 113 mmol/L High 98-107 [facility] Comment on above: Performed By: #### L 500.4100, L500.2500, L100.0100 ####[facility] [address] [place], [address] CO2 [Moles/Vol] 20.0 mmol/L Low 21.0-32.0 [facility] Comment on above: Performed By: #### L 500.4100, L500.2500, L100.0100 ####[facility] [address] [place], [address] Creatinine [Mass/Vol] 1.82 mg/dL High 0.70-1.30 [facility] Comment on above: Result Comment: The validity of the calculated GFR GFRAA in patients over70 years has not been determined. Clinical correlation isessential. Performed By: #### L 500.4100, L500.2500, L100.0100 ####[facility] [address] [place], [address] ECRCL 37.77 ml/min Normal [facility] Comment on above: Performed By: #### L 500.4100, L500.2500, L100.0100 ####[facility] [address] [place], [address] EST GFR - AA 48 mL/min Low >60 [facility] Comment on above: Result Comment: Afri can [place] GFR Calc Performed By: #### L 500.4100, L500.2500, L100.0100 ####[facility] [address] [place], [address] GAP 7 Normal 5-15 [facility] Comment on above: Performed By: #### L 500.4100, L500.2500, L100.0100 ####[facility] [address] [place], [address] GFR/1.73 sq M.predicted among non-blacks MDRD (S/P/Bld) [Vol rate/Area] 39 mL/min/{1.73_m2} Low >60 [facility] Comment on above: Result Comment: Non- GFR Calc Performed By: #### L 500.4100, L500.2500, L100.0100 ####[facility] [address] [place], [address] Glucose [Mass/Vol] 98 mg/dL Normal 74-106 [facility] Comment on above: Performed By: #### L 500.4100, L500.2500, L100.0100 ####[facility] [address] [place], [address] Potassium [Moles/Vol] 4.5 mmol/L Normal 3.5-5.1 [facility] Comment on above: Performed By: #### L 500.4100, L500.2500, L100.0100 ####[facility] [address] [place], [address] Sodium [Moles/Vol] 140 mmol/L Normal 136-145 [facility] Comment on above: Performed By: #### L 500.4100, L500.2500, L100.0100 ####[facility] [address] [place], [address] Urea nitrogen [Mass/Vol] 34 mg/dL High 7-18 [facility] Comment on above: Performed By: #### L 500.4100, L500.2500, L100.0100 ####[facility] [address] [place], [address] CBC W/Diff, Automatedon PATH REV Reviewed Normal [facility] Comment on above: Result Comment: Abso lute lymphocytosis suggestive of low grade lympho-proliferative disorder.Clinical correlation is necessary.Macrocytic anemia.Thrombocytosis.Prashanth Machado M.D. 02/13/24 AMENDED REPORT 02/13/24 1440 PATH REV previously reported as: Skye archuleta Performed By: #### L 100.0100, L100.9950, L500.4050, L503.6550, L503.6030 ####[facility] [address] [place], [address] Lipid Profileon 02-13-2024 Cholesterol [Mass/Vol] 102 mg/dL Normal 200 [facility] Comment on above: Result Comment: <200 mg/dL Desirable 200-240 mg/dL Borderline >240 mg/dL High Risk Performed By: #### L 500.4100, L500.2500, L100.0100 ####[facility] [address] [place], [address] Cholesterol in HDL [Mass/Vol] 43 mg/dL Normal [facility] Comment on above: Result Comment: The drugs N-Acetylcysteine and Metamizole may falselydepress this assay. Reference Range HDL <40 mg/dL Low HDL Cholesterol HDL >or= 60 mg/dL High HDL Cholesterol Performed By: #### L 500.4100, L500.2500, L100.0100 ####[facility] [address] [place], [address] Cholesterol in LDL [Mass/Vol] 30 mg/dL Normal 0-130 [facility] Comment on above: Performed By: #### L 500.4100, L500.2500, L100.0100 ####[facility] [address] [place], [address] Cholesterol in VLDL [Mass/Vol] 29 mg/dL Normal 5-40 [facility] Comment on above: Performed By: #### L 500.4100, L500.2500, L100.0100 ####[facility] [address] [place], [address] Triglyceride [Mass/Vol] 144 mg/dL Normal [facility] Comment on above: Result Comment: The drugs N-Acetylcysteine and Metamizole may falselydepress this assay.Serum Triglycerides Reference Interval Normal <150 mg/dL Borderline high 150 - 199 mg/dL High 200 - 499 mg/dL Very High > or = 500 mg/dL Performed By: #### L 500.4100, L500.2500, L100.0100 ####[facility] [address] [place], [address] Comprehensive Metabolic Prof [facility] 02-12-2024 Albumin [Mass/Vol] 3.1 g/dL Low 3.2-5.0 [facility] Comment on above: Performed By: #### L 100.0100, L100.9950, L500.4050, L503.6550, L503.6030 ####[facility] [address] [place], [address] Albumin/Globulin [Mass ratio] 0.9 {ratio} Normal 0.9-2.4 [facility] Comment on above: Performed By: #### L 100.0100, L100.9950, L500.4050, L503.6550, L503.6030 ####[facility] [address] [place], [address] ALK P 119 U/L High 45-117 [facility] Comment on above: Performed By: #### L 100.0100, L100.9950, L500.4050, L503.6550, L503.6030 ####[facility] [address] [place], [address] ALT [Catalytic activity/Vol] 15 U/L Low 16-61 [facility] Comment on above: Performed By: #### L 100.0100, L100.9950, L500.4050, L503.6550, L503.6030 ####[facility] [address] [place], [address] AST [Catalytic activity/Vol] 10 U/L Low 15-37 [facility] Comment on above: Performed By: #### L 100.0100, L100.9950, L500.4050, L503.6550, L503.6030 ####[facility] [address] [place], [address] Bilirubin [Mass/Vol] 0.30 mg/dL Normal 0.20-1.00 [facility] Comment on above: Result Comment: For patients on eltrombopag therapy, use of Dimension [place] TBIL is not recommended. Performed By: #### L 100.0100, L100.9950, L500.4050, L503.6550, L503.6030 ####[facility] [address] [place], [address] BUN/CRE 15.9 RATIO Normal 10-20 [facility] Comment on above: Performed By: #### L 100.0100, L100.9950, L500.4050, L503.6550, L503.6030 ####[facility] [address] [place], [address] CA,Total 9.7 mg/dL Normal 8.5-10.1 [facility] Comment on above: Performed By: #### L 100.0100, L100.9950, L500.4050, L503.6550, L503.6030 ####[facility] [address] [place], [address] Chloride [Moles/Vol] 109 mmol/L High 98-107 [facility] Comment on above: Performed By: #### L 100.0100, L100.9950, L500.4050, L503.6550, L503.6030 ####[facility] [address] [place], [address] CO2 [Moles/Vol] 20.0 mmol/L Low 21.0-32.0 [facility] Comment on above: Performed By: #### L 100.0100, L100.9950, L500.4050, L503.6550, L503.6030 ####[facility] [address] [place], [address] Creatinine [Mass/Vol] 1.95 mg/dL High 0.70-1.30 [facility] Comment on above: Result Comment: The validity of the calculated GFR GFRAA in patients over70 years has not been determined. Clinical correlation isessential. Performed By: #### L 100.0100, L100.9950, L500.4050, L503.6550, L503.6030 ####[facility] [address] [place], [address] ECRCL 39.43 ml/min Normal [facility] Comment on above: Performed By: #### L 100.0100, L100.9950, L500.4050, L503.6550, L503.6030 ####[facility] [address] [place], [address] EST GFR - AA 44 mL/min Low >60 [facility] Comment on above: Result Comment: Afri can [place] GFR Calc Performed By: #### L 100.0100, L100.9950, L500.4050, L503.6550, L503.6030 ####[facility] [address] [place], [address] GAP 8 Normal 5-15 [facility] Comment on above: Performed By: #### L 100.0100, L100.9950, L500.4050, L503.6550, L503.6030 ####[facility] [address] [place], [address] GFR/1.73 sq M.predicted among non-blacks MDRD (S/P/Bld) [Vol rate/Area] 36 mL/min/{1.73_m2} Low >60 [facility] Comment on above: Result Comment: Non- GFR Calc Performed By: #### L 100.0100, L100.9950, L500.4050, L503.6550, L503.6030 ####[facility] [address] [place], [address] Globulin (S) [Mass/Vol] 3.5 g/dL Normal 2.2-4.2 [facility] Comment on above: Performed By: #### L 100.0100, L100.9950, L500.4050, L503.6550, L503.6030 ####[facility] [address] [place], [address] Glucose [Mass/Vol] 113 mg/dL High 74-106 [facility] Comment on above: Result Comment: Fast ing Glucose result from 100 to 125 mg/dLsuggests IMPAIRED HOMEOSTASIS per A.D.A. criteria. Performed By: #### L 100.0100, L100.9950, L500.4050, L503.6550, L503.6030 ####[facility] [address] [place], [address] Potassium [Moles/Vol] 4.2 mmol/L Normal 3.5-5.1 [facility] Comment on above: Performed By: #### L 100.0100, L100.9950, L500.4050, L503.6550, L503.6030 ####[facility] [address] [place], [address] Sodium [Moles/Vol] 137 mmol/L Normal 136-145 [facility] Comment on above: Performed By: #### L 100.0100, L100.9950, L500.4050, L503.6550, L503.6030 ####[facility] [address] [place], [address] T PROT 6.6 g/dL Normal 6.4-8.2 [facility] Comment on above: Performed By: #### L 100.0100, L100.9950, L500.4050, L503.6550, L503.6030 ####[facility] [address] [place], [address] Urea nitrogen [Mass/Vol] 31 mg/dL High 7-18 [facility] Comment on above: Performed By: #### L 100.0100, L100.9950, L500.4050, L503.6550, L503.6030 ####[facility] [address] [place], [address] Ferritinon 02-12-2024 Ferritin [Mass/Vol] 238 ng/mL Normal 26-388 [facility] Comment on above: Performed By: #### L 100.0100, L100.9950, L500.4050, L503.6550, L503.6030 ####[facility] [address] [place], [address] Iron+Iron Binding Capacityon 02-12-2024 Iron [Mass/Vol] 106 ug/dL Normal 65-175 [facility] Comment on above: Performed By: #### L 100.0100, L100.9950, L500.4050, L503.6550, L503.6030 ####[facility] [address] [place], [address] IRON SATURATION 36.8 Normal 15.0-55.0 [facility] Comment on above: Performed By: #### L 100.0100, L100.9950, L500.4050, L503.6550, L503.6030 ####[facility] [address] [place], [address] TIBC 288 ug/dL Normal 250-450 [facility] Comment on above: Performed By: #### L 100.0100, L100.9950, L500.4050, L503.6550, L503.6030 ####[facility] [address] [place], [address] Oncology Visit Reporton 01-14 Oncology Visit Report Normal [facility] Retic Panelon 02-12-2024 IM RET FRACTION 29.40 High 3.00-15.90 [facility] Comment on above: Performed By: #### L 100.0100, L100.9950, L500.4050, L503.6550, L503.6030 ####[facility] [address] [place], [address] RET-HE 30.0 pg Normal 30-35 [facility] Comment on above: Performed By: #### L 100.0100, L100.9950, L500.4050, L503.6550, L503.6030 ####[facility] [address] [place], [address] Retic Count 3.24 High 0.5-1.5 [facility] Comment on above: Performed By: #### L 100.0100, L100.9950, L500.4050, L503.6550, L503.6030 ####[facility] [address] [place], [address] Chest without Contraston Chest without Contrast Normal [facility] Spine Cervical (Routine)on 1 Spine Cervical (Routine) Normal [facility] Brain without Contraston Brain without Contrast Normal [facility] CBC W/Diff, Automatedon 01-13 PATH REV Reviewed Normal [facility] Comment on above: Result Comment: Abso lute lymphocytosis suggestive of low grade lympho-proliferative disorder.Clinical correlation is necessary.Macrocytic anemia.Clinical correlation necessary.Prashanth Machado M.D. 02/09/24Prashanth Machado M.D. 02/09/24 AMENDED REPORT 02/09/24 1418 PATH REV previously reported as: August Performed By: #### L 500.2500, L100.0100 ####[facility] [address] [place], [address] HH, Hemoglobin AND Hematocri ton 02-09-2024 Hematocrit (Bld) [Volume fraction] 26.5 % Low 40-54 [facility] Comment on above: Performed By: #### L 100.0600 ####[facility] [address] [place], [address] Hemoglobin (Bld) [Mass/Vol] 8.3 g/dL Low 13.0-16.5 [facility] Comment on above: Performed By: #### L 100.0600 ####[facility] [address] [place], [address] Basic Metabolic Profile (BMP )on 02-07-2024 BUN/CRE 15.5 RATIO Normal 01-31 [facility] Comment on above: Performed By: #### L 500.2500, L100.0100 ####[facility] [address] [place], [address] CA,Total 10.1 mg/dL Normal 8.5-10.1 [facility] Comment on above: Performed By: #### L 500.2500, L100.0100 ####[facility] [address] [place], [address] Chloride [Moles/Vol] 108 mmol/L High 98-107 [facility] Comment on above: Performed By: #### L 500.2500, L100.0100 ####[facility] [address] [place], [address] CO2 [Moles/Vol] 24.0 mmol/L Normal 21.0-32.0 [facility] Comment on above: Performed By: #### L 500.2500, L100.0100 ####[facility] [address] [place], [address] Creatinine [Mass/Vol] 1.74 mg/dL High 0.70-1.30 [facility] Comment on above: Result Comment: The validity of the calculated GFR GFRAA in patients over70 years has not been determined. Clinical correlation isessential. Performed By: #### L 500.2500, L100.0100 ####[facility] [address] [place], [address] ECRCL 39.50 ml/min Normal [facility] Comment on above: Performed By: #### L 500.2500, L100.0100 ####[facility] [address] [place], [address] EST GFR - AA 50 mL/min Low >60 [facility] Comment on above: Result Comment: Afri can [place] GFR Calc Performed By: #### L 500.2500, L100.0100 ####[facility] [address], [address] GAP 6 Normal 5-15 [facility] Comment on above: Performed By: #### L 500.2500, L100.0100 ####[facility] [address] [place], [address] GFR/1.73 sq M.predicted among non-blacks MDRD (S/P/Bld) [Vol rate/Area] 41 mL/min/{1.73_m2} Low >60 [facility] Comment on above: Result Comment: Non- GFR Calc Performed By: #### L 500.2500, L100.0100 ####[facility] [address] [place], [address] Glucose [Mass/Vol] 109 mg/dL High 74-106 [facility] Comment on above: Result Comment: Fast ing Glucose result from 100 to 125 mg/dLsuggests IMPAIRED HOMEOSTASIS per A.D.A. criteria. Performed By: #### L 500.2500, L100.0100 ####[facility] [address] [place], [address] Potassium [Moles/Vol] 4.1 mmol/L Normal 3.5-5.1 [facility] Comment on above: Performed By: #### L 500.2500, L100.0100 ####[facility] [address] [place], [address] Sodium [Moles/Vol] 138 mmol/L Normal 136-145 [facility] Comment on above: Performed By: #### L 500.2500, L100.0100 ####[facility] [address] [place], [address] Urea nitrogen [Mass/Vol] 27 mg/dL High 7-18 [facility] Comment on above: Performed By: #### L 500.2500, L100.0100 ####[facility] [address] [place], [address] Basic Metabolic Profile (BMP )on 02-06-2024 BUN/CRE 14.0 RATIO Normal - [facility] Comment on above: Performed By: #### L 100.0100, L500.2500 ####[facility] [address] [place], [address] CA,Total 9.8 mg/dL Normal 8.5-10.1 [facility] Comment on above: Performed By: #### L 100.0100, L500.2500 ####[facility] [address] [place], [address] Chloride [Moles/Vol] 106 mmol/L Normal 98-107 [facility] Comment on above: Performed By: #### L 100.0100, L500.2500 ####[facility] [address] [place], [address] CO2 [Moles/Vol] 24.0 mmol/L Normal 21.0-32.0 [facility] Comment on above: Performed By: #### L 100.0100, L500.2500 ####[facility] [address] [place], [address] Creatinine [Mass/Vol] 1.86 mg/dL High 0.70-1.30 [facility] Comment on above: Result Comment: The validity of the calculated GFR GFRAA in patients over70 years has not been determined. Clinical correlation isessential. Performed By: #### L 100.0100, L500.2500 ####[facility] [address] [place], [address] ECRCL 36.95 ml/min Normal [facility] Comment on above: Performed By: #### L 100.0100, L500.2500 ####[facility] [address] [place], [address] EST GFR - AA 46 mL/min Low >60 [facility] Comment on above: Result Comment: Afri can [place] GFR Calc Performed By: #### L 100.0100, L500.2500 ####[facility] [address] [place], [address] GAP 7 Normal 5-15 [facility] Comment on above: Performed By: #### L 100.0100, L500.2500 ####[facility] [address] [place], [address] GFR/1.73 sq M.predicted among non-blacks MDRD (S/P/Bld) [Vol rate/Area] 38 mL/min/{1.73_m2} Low >60 [facility] Comment on above: Result Comment: Non- GFR Calc Performed By: #### L 100.0100, L500.2500 ####[facility] [address] [place], [address] Glucose [Mass/Vol] 105 mg/dL Normal 74-106 [facility] Comment on above: Result Comment: Fast ing Glucose result from 100 to 125 mg/dLsuggests IMPAIRED HOMEOSTASIS per A.D.A. criteria. Performed By: #### L 100.0100, L500.2500 ####[facility] [address] [place], [address] Potassium [Moles/Vol] 4.4 mmol/L Normal 3.5-5.1 [facility] Comment on above: Performed By: #### L 100.0100, L500.2500 ####[facility] [address] [place], [address] Sodium [Moles/Vol] 137 mmol/L Normal 136-145 [facility] Comment on above: Performed By: #### L 100.0100, L500.2500 ####[facility] [address] [place], [address] Urea nitrogen [Mass/Vol] 26 mg/dL High 7-18 [facility] Comment on above: Performed By: #### L 100.0100, L500.2500 ####[facility] [address] [place], [address] CBC W/Diff, Automatedon 10-2 5-2024 PATH REV Reviewed Normal [facility] Comment on above: Result Comment: Abso lute lymphocytosis suggestive of low grade lympho-proliferative disorder.Clinical correlation is necessary.Macrocytic anemia.Prashanth Machado M.D. 02/06/24 AMENDED REPORT 02/06/24 1549 PATH REV previously reported as: August Performed By: #### L 100.0100, L500.2500 ####[facility] [address] [place], [address] Basic Metabolic Profile (BMP )on 02-05-2024 BUN/CRE 17.8 RATIO Normal 01-31 [facility] Comment on above: Performed By: #### L 500.2500, L100.0100 ####[facility] [address] [place], [address] CA,Total 9.9 mg/dL Normal 8.5-10.1 [facility] Comment on above: Performed By: #### L 500.2500, L100.0100 ####[facility] [address] [place], [address] Chloride [Moles/Vol] 104 mmol/L Normal 98-107 [facility] Comment on above: Performed By: #### L 500.2500, L100.0100 ####[facility] [address] [place], [address] CO2 [Moles/Vol] 29.0 mmol/L Normal 21.0-32.0 [facility] Comment on above: Performed By: #### L 500.2500, L100.0100 ####[facility] [address] [place], [address] Creatinine [Mass/Vol] 2.02 mg/dL High 0.70-1.30 [facility] Comment on above: Result Comment: The validity of the calculated GFR GFRAA in patients over70 years has not been determined. Clinical correlation isessential. Performed By: #### L 500.2500, L100.0100 ####[facility] [address] [place], [address] ECRCL 34.03 ml/min Normal [facility] Comment on above: Performed By: #### L 500.2500, L100.0100 ####[facility] [address] [place], [address] EST GFR - AA 42 mL/min Low >60 [facility] Comment on above: Result Comment: Afri can [place] GFR Calc Performed By: #### L 500.2500, L100.0100 ####[facility] [address] [place], [address] GAP 4 Low 5-15 [facility] Comment on above: Performed By: #### L 500.2500, L100.0100 ####[facility] [address] [place], [address] GFR/1.73 sq M.predicted among non-blacks MDRD (S/P/Bld) [Vol rate/Area] 35 mL/min/{1.73_m2} Low >60 [facility] Comment on above: Result Comment: Non- GFR Calc Performed By: #### L 500.2500, L100.0100 ####[facility] [address] [place], [address] Glucose [Mass/Vol] 97 mg/dL Normal 74-106 [facility] Comment on above: Performed By: #### L 500.2500, L100.0100 ####[facility] [address] [place], [address] Potassium [Moles/Vol] 4.6 mmol/L Normal 3.5-5.1 [facility] Comment on above: Performed By: #### L 500.2500, L100.0100 ####[facility] [address] [place], [address] Sodium [Moles/Vol] 137 mmol/L Normal 136-145 [facility] Comment on above: Performed By: #### L 500.2500, L100.0100 ####[facility] [address] [place], [address] Urea nitrogen [Mass/Vol] 36 mg/dL High 7-18 [facility] Comment on above: Performed By: #### L 500.2500, L100.0100 ####[facility] [address] [place], [address] CBC W/Diff, Automatedon 10- SMEAR COMMENT SCANNED Normal [facility] Comment on above: Performed By: #### L 500.2500, L100.0100 ####[facility] [address] [place], [address] BRCon 02-04-2024 RC Normal [facility] Comment on above: Result Comment: [id number] BP RC TRANSFUSED 02/04/24 0656 Performed By: #### B TS, BR ####[facility] [address] [place], [address] Basic Metabolic Profile (BMP )on 02-04-2024 BUN/CRE 13.3 RATIO Normal 10-20 [facility] Comment on above: Performed By: #### L 100.0100, L500.2500 ####[facility] [address] [place], [address] CA,Total 9.4 mg/dL Normal 8.5-10.1 [facility] Comment on above: Performed By: #### L 100.0100, L500.2500 ####[facility] [address] [place], [address] Chloride [Moles/Vol] 106 mmol/L Normal 98-107 [facility] Comment on above: Performed By: #### L 100.0100, L500.2500 ####[facility] [address] [place], [address] CO2 [Moles/Vol] 26.0 mmol/L Normal 21.0-32.0 [facility] Comment on above: Performed By: #### L 100.0100, L500.2500 ####[facility] [address] [place], [address] Creatinine [Mass/Vol] 2.10 mg/dL High 0.70-1.30 [facility] Comment on above: Result Comment: The validity of the calculated GFR GFRAA in patients over70 years has not been determined. Clinical correlation isessential. Performed By: #### L 100.0100, L500.2500 ####[facility] [address] [place], [address] ECRCL 32.73 ml/min Normal [facility] Comment on above: Performed By: #### L 100.0100, L500.2500 ####[facility] [address] [place], [address] EST GFR - AA 40 mL/min Low >60 [facility] Comment on above: Result Comment: Afri can [place] GFR Calc Performed By: #### L 100.0100, L500.2500 ####[facility] [address] [place], [address] GAP 5 Normal 5-15 [facility] Comment on above: Performed By: #### L 100.0100, L500.2500 ####[facility] [address] [place], [address] GFR/1.73 sq M.predicted among non-blacks MDRD (S/P/Bld) [Vol rate/Area] 33 mL/min/{1.73_m2} Low >60 [facility] Comment on above: Result Comment: Non- GFR Calc Performed By: #### L 100.0100, L500.2500 ####[facility] [address] [place], [address] Glucose [Mass/Vol] 122 mg/dL High 74-106 [facility] Comment on above: Result Comment: Fast ing Glucose result from 100 to 125 mg/dLsuggests IMPAIRED HOMEOSTASIS per A.D.A. criteria. Performed By: #### L 100.0100, L500.2500 ####[facility] [address] [place], [address] Potassium [Moles/Vol] 4.8 mmol/L Normal 3.5-5.1 [facility] Comment on above: Result Comment: Slig ht Hemolysis, Result may be falsely increased. Performed By: #### L 100.0100, L500.2500 ####[facility] [address] [place], [address] Sodium [Moles/Vol] 137 mmol/L Normal 136-145 [facility] Comment on above: Performed By: #### L 100.0100, L500.2500 ####[facility] [address] [place], [address] Urea nitrogen [Mass/Vol] 28 mg/dL High 7-18 [facility] Comment on above: Performed By: #### L 100.0100, L500.2500 ####[facility] [address] [place], [address] CBC W/Diff, Automatedon 01-13 PATH REV Reviewed Normal [facility] Comment on above: Result Comment: Abso lute lymphocytosis suggestive of low grade lympho-proliferative disorder.Clinical correlation is necessary.SEVERE Macrocytic anemia.Prashanth Machado M.D. 02/04/24 AMENDED REPORT 02/04/24 1407 PATH REV previously reported as: August kathe Performed By: #### L 100.0100, L500.2500 ####[facility] [address] [place], [address] Hemoglobinon 02-04-2024 Hemoglobin (Bld) [Mass/Vol] 8.3 g/dL Low 13.0-16.5 [facility] Comment on above: Performed By: #### L 100.1300 ####[facility] [address] [place], [place], [address] Type AND Screenon 02-04-2024 ABO and Rh group Nom (Bld) Blood group B Rh(D) positive Normal [facility] Comment on above: Order Comment: CMV N EG? NNumber of units to transfuse: 1Reason for Ordering Blood: AcuteAre the blood/blood products to be transfused? YIs the patient having/had surgery? YWhen ReadyNY Performed By: #### B , [facility] ####[facility] [address] [place], [place], [address] Decalcification bone/plaqueo n 02-03-2024 Decalcification bone/plaque Normal [facility] Comment on above: Performed By: #### P DEC ####[facility] [address] [place], [place], [address] MR/POSTOP.ANEon 02-03-2024 MR/POSTOP.ANE Normal [facility] MR/[id number] 02-03-2024 MR/POSTOPAN2 Normal [facility] Operative Reporton Operative Report Normal [facility] Miscellaneous Lab Procedureo n 01-27-2024 [facility] LAB TEST Normal [facility] Comment on above: Order Comment: STOOL CX [id number] Result Comment: Stoo l Culture Final ReportSalmonella/Shigella Screen No Salmonella/Shigella isolated.Campylobacter Culture No Campylobacter isolated.E coli Shiga Toxin EIA Negative [facility] ORIGINAL REPORT ON FILE IN LAB CONTAINS ADDITIONAL TEST SITE INFORMATION. ____ Performed By: #### M 100.6796, L801.1541, M100.2000, M100.0605, M100.6795 ####[facility] [address] [place], [address] CBC W/Diff, Automatedon 10-1 PATH REV Reviewed Normal [facility] Comment on above: Order Comment: cc: c mp and cbc to and dr. boyer Result Comment: ABSO LUTE LYMPHOCYTOSIS CONSISTENT WITH CLLMacrocytic anemia.Clinical correlation necessary.Prashanth Machado M.D. 01/23/24 AMENDED REPORT 01/23/24 1318 PATH REV previously reported as: August Performed By: #### L 500.4050, L100.0100, L501.5200 ####[facility] [address] [place], [address] CBC W/Diff, Automatedon 10-1 Absolute Neut Normal 2.0-7.7 [facility] Comment on above: Result Comment: DR. OROZCO ORDERED CMP AND CBCD Performed By: #### L 500.4050, L100.0100 ####[facility] [address] [place], [address] HCT Normal 40-54 [facility] Comment on above: Result Comment: DR. OROZCO ORDERED CMP AND CBCD Performed By: #### L 500.4050, L100.0100 ####[facility] [address] [place], [address] HGB Normal 13.0-16.5 [facility] Comment on above: Result Comment: DR. OROZCO ORDERED CMP AND CBCD Performed By: #### L 500.4050, L100.0100 ####[facility] [address] [place], [address] MCH Normal 27.0-32.0 [facility] Comment on above: Result Comment: DR. OROZCO ORDERED CMP AND CBCD Performed By: #### L 500.4050, L100.0100 ####[facility] [address] [place], [address] MCHC Normal 32-36 [facility] Comment on above: Result Comment: DR. OROZCO ORDERED CMP AND CBCD Performed By: #### L 500.4050, L100.0100 ####[facility] [address] [place], [address] MCV Normal 80-94 [facility] Comment on above: Result Comment: DR. OROZCO ORDERED CMP AND CBCD Performed By: #### L 500.4050, L100.0100 ####[facility] [address] [place], [address] NEUT% Normal 47-70 [facility] Comment on above: Result Comment: DR. OROZCO ORDERED CMP AND CBCD Performed By: #### L 500.4050, L100.0100 ####[facility] [address] [place], [address] PLT Normal 150-450 [facility] Comment on above: Result Comment: DR. OROZCO ORDERED CMP AND CBCD Performed By: #### L 500.4050, L100.0100 ####[facility] [address] [place], [address] RBC Normal 4.6-6.2 [facility] Comment on above: Result Comment: DR. OROZCO ORDERED CMP AND CBCD Performed By: #### L 500.4050, L100.0100 ####[facility] [address] [place], [address] RDW CV Normal 11.6-14.6 [facility] Comment on above: Result Comment: DR. OROZCO ORDERED CMP AND CBCD Performed By: #### L 500.4050, L100.0100 ####[facility] [address] [place], [address] RDW SD Normal 35.1-43.9 [facility] Comment on above: Result Comment: DR. OROZCO ORDERED CMP AND CBCD Performed By: #### L 500.4050, L100.0100 ####[facility] [address] [place], [address] WBC Normal 4.4-11.0 [facility] Comment on above: Result Comment: DR. OROZCO ORDERED CMP AND CBCD Performed By: #### L 500.4050, L100.0100 ####[facility] [address] [place], [address] Comprehensive Metabolic Prof ilon 01-22-2024 Albumin [Mass/Vol] 3.2 g/dL Normal 3.2-5.0 [facility] Comment on above: Order Comment: cc: c mp and cbc to and dr. boyer Performed By: #### L 500.4050, L100.0100, L501.5200 ####[facility] [address] [place], [address] Albumin/Globulin [Mass ratio] 0.9 {ratio} Normal 0.9-2.4 [facility] Comment on above: Order Comment: cc: c mp and cbc to and dr. boyer Performed By: #### L 500.4050, L100.0100, L501.5200 ####[facility] [address] [place], [address] ALK P 106 U/L Normal 45-117 [facility] Comment on above: Order Comment: cc: c mp and cbc to and dr. boyer Performed By: #### L 500.4050, L100.0100, L501.5200 ####[facility] [address] [place], [address] ALT [Catalytic activity/Vol] 17 U/L Normal 16-61 [facility] Comment on above: Order Comment: cc: c mp and cbc to and dr. boyer Performed By: #### L 500.4050, L100.0100, L501.5200 ####[facility] [address] [place], [address] AST [Catalytic activity/Vol] 16 U/L Normal 15-37 [facility] Comment on above: Order Comment: cc: c mp and cbc to and dr. boyer Performed By: #### L 500.4050, L100.0100, L501.5200 ####[facility] [address] [place], [address] Bilirubin [Mass/Vol] 0.40 mg/dL Normal 0.20-1.00 [facility] Comment on above: Order Comment: cc: c mp and cbc to and dr. boyer Result Comment: For patients on eltrombopag therapy, use of Dimension [place] TBIL is not recommended. Performed By: #### L 500.4050, L100.0100, L501.5200 ####[facility] [address] [place], [address] BUN/CRE 11.9 RATIO Normal 10-20 [facility] Comment on above: Order Comment: cc: c mp and cbc to and dr. boyer Performed By: #### L 500.4050, L100.0100, L501.5200 ####[facility] [address] [place], [address] CA,Total 9.0 mg/dL Normal 8.5-10.1 [facility] Comment on above: Order Comment: cc: c mp and cbc to and dr. boyer Performed By: #### L 500.4050, L100.0100, L501.5200 ####[facility] [address] [place], [address] Chloride [Moles/Vol] 104 mmol/L Normal 98-107 [facility] Comment on above: Order Comment: cc: c mp and cbc to and dr. boyer Performed By: #### L 500.4050, L100.0100, L501.5200 ####[facility] [address] [place], [address] CO2 [Moles/Vol] 23.0 mmol/L Normal 21.0-32.0 [facility] Comment on above: Order Comment: cc: c mp and cbc to and dr. boyer Performed By: #### L 500.4050, L100.0100, L501.5200 ####[facility] [address] [place], [address] Creatinine [Mass/Vol] 2.01 mg/dL High 0.70-1.30 [facility] Comment on above: Order Comment: cc: c mp and cbc to and dr. boyer Result Comment: The validity of the calculated GFR GFRAA in patients over70 years has not been determined. Clinical correlation isessential. Performed By: #### L 500.4050, L100.0100, L501.5200 ####[facility] [address] [place], [address] EST GFR - AA 42 mL/min Low >60 [facility] Comment on above: Order Comment: cc: c mp and cbc to and dr. boyer Result Comment: Afri can [place] GFR Calc Performed By: #### L 500.4050, L100.0100, L501.5200 ####[facility] [address] [place], [address] GAP 10 Normal 5-15 [facility] Comment on above: Order Comment: cc: c mp and cbc to and dr. boyer Performed By: #### L 500.4050, L100.0100, L501.5200 ####[facility] [address] [place], [address] GFR/1.73 sq M.predicted among non-blacks MDRD (S/P/Bld) [Vol rate/Area] 35 mL/min/{1.73_m2} Low >60 [facility] Comment on above: Order Comment: cc: c mp and cbc to and dr. boyer Result Comment: Non- GFR Calc Performed By: #### L 500.4050, L100.0100, L501.5200 ####[facility] [address] [place], [address] Globulin (S) [Mass/Vol] 3.7 g/dL Normal 2.2-4.2 [facility] Comment on above: Order Comment: cc: c mp and cbc to and dr. boyer Performed By: #### L 500.4050, L100.0100, L501.5200 ####[facility] [address] [place], [address] Glucose [Mass/Vol] 108 mg/dL High 74-106 [facility] Comment on above: Order Comment: cc: c mp and cbc to and dr. boyer Result Comment: Fast ing Glucose result from 100 to 125 mg/dLsuggests IMPAIRED HOMEOSTASIS per A.D.A. criteria. Performed By: #### L 500.4050, L100.0100, L501.5200 ####[facility] [address] [place], [address] Potassium [Moles/Vol] 4.2 mmol/L Normal 3.5-5.1 [facility] Comment on above: Order Comment: cc: c mp and cbc to and dr. boyer Performed By: #### L 500.4050, L100.0100, L501.5200 ####[facility] [address] [place], [address] Sodium [Moles/Vol] 136 mmol/L Normal 136-145 [facility] Comment on above: Order Comment: cc: c mp and cbc to and dr. boyer Performed By: #### L 500.4050, L100.0100, L501.5200 ####[facility] [address] [place], [address] T PROT 6.9 g/dL Normal 6.4-8.2 [facility] Comment on above: Order Comment: cc: c mp and cbc to and dr. byoer Performed By: #### L 500.4050, L100.0100, L501.5200 ####[facility] [address] [place], [address] Urea nitrogen [Mass/Vol] 24 mg/dL High 7-18 [facility] Comment on above: Order Comment: cc: c mp and cbc to and dr. boyer Performed By: #### L 500.4050, L100.0100, L501.5200 ####[facility] [address] [place], [address] ALB Normal 3.2-5.0 [facility] Comment on above: Result Comment: DR. OROZCO ORDERED CMP AND CBCD Performed By: #### L 500.4050, L100.0100 ####[facility] [address] [place], [address] ALK P Normal 45-117 [facility] Comment on above: Result Comment: DR. OROZCO ORDERED CMP AND CBCD Performed By: #### L 500.4050, L100.0100 ####[facility] [address] [place], [address] ALT Normal 16-61 [facility] Comment on above: Result Comment: DR. OROZCO ORDERED CMP AND CBCD Performed By: #### L 500.4050, L100.0100 ####[facility] [address] [place], [address] AST Normal 15-37 [facility] Comment on above: Result Comment: DR. OROZCO ORDERED CMP AND CBCD Performed By: #### L 500.4050, L100.0100 ####[facility] [address] [place], [address] BUN Normal 7-18 [facility] Comment on above: Result Comment: DR. OROZCO ORDERED CMP AND CBCD Performed By: #### L 500.4050, L100.0100 ####[facility] [address] [place], [address] BUN/CRE Normal 10-20 [facility] Comment on above: Result Comment: DR. OROZCO ORDERED CMP AND CBCD Performed By: #### L 500.4050, L100.0100 ####[facility] [address] [place], [address] CA,Total Normal 8.5-10.1 [facility] Comment on above: Result Comment: DR. OROZCO ORDERED CMP AND CBCD Performed By: #### L 500.4050, L100.0100 ####[facility] [address] [place], [address] CL Normal 98-107 [facility] Comment on above: Result Comment: DR. OROZCO ORDERED CMP AND CBCD Performed By: #### L 500.4050, L100.0100 ####[facility] [address] [place], [address] CO2 Normal 21.0-32.0 [facility] Comment on above: Result Comment: DR. OROZCO ORDERED CMP AND CBCD Performed By: #### L 500.4050, L100.0100 ####[facility] [address] [place], [address] CREAT,SERUM Normal 0.70-1.30 [facility] Comment on above: Result Comment: DR. OROZCO ORDERED CMP AND CBCD Performed By: #### L 500.4050, L100.0100 ####[facility] [address] [place], [address] EST GFR Normal >60 [facility] Comment on above: Result Comment: DR. OROZCO ORDERED CMP AND CBCD Performed By: #### L 500.4050, L100.0100 ####[facility] [address] [place], [address] EST GFR - AA Normal >60 [facility] Comment on above: Result Comment: DR. OROZCO ORDERED CMP AND CBCD Performed By: #### L 500.4050, L100.0100 ####[facility] [address] [place], [address] GAP Normal 5-15 [facility] Comment on above: Result Comment: DR. OROZCO ORDERED CMP AND CBCD Performed By: #### L 500.4050, L100.0100 ####[facility] [address] [place], [address] GLU Normal 74-106 [facility] Comment on above: Result Comment: DR. OROZCO ORDERED CMP AND CBCD Performed By: #### L 500.4050, L100.0100 ####[facility] [address] [place], [address] Potassium Normal 3.5-5.1 [facility] Comment on above: Result Comment: DR. OROZCO ORDERED CMP AND CBCD Performed By: #### L 500.4050, L100.0100 ####[facility] [address] [place], [address] T BILI Normal 0.20-1.00 [facility] Comment on above: Result Comment: DR. OROZCO ORDERED CMP AND CBCD Performed By: #### L 500.4050, L100.0100 ####[facility] [address] [place], [address] T PROT Normal 6.4-8.2 [facility] Comment on above: Result Comment: DR. OROZCO ORDERED CMP AND CBCD Performed By: #### L 500.4050, L100.0100 ####[facility] [address] [place], [address] Comprehensive Metabolic Profil Normal 136-145 [facility] Comment on above: Result Comment: DR. OROZCO ORDERED CMP AND CBCD Performed By: #### L 500.4050, L100.0100 ####[facility] [address] [place], [address] Magnesiumon 01-22-2024 Magnesium [Mass/Vol] 1.5 mg/dL Low 1.6-2.6 [facility] Comment on above: Order Comment: cc: c mp and cbc to and dr. boyer Performed By: #### L 500.4050, L100.0100, L501.5200 ####[facility] [address] [place], [address] Partial Thromboplast Timeon 01-22-2024 aPTT Coag (Bld) [Time] 38.2 s High 24.1-36.2 [facility] Comment on above: Performed By: #### L 300.3900, L300.4310 ####[facility] [address] [place], [address] Prothrombin Time w/INRon INR Coag (PPP) [Relative time] 1.8 {INR} Normal [facility] Comment on above: Performed By: #### L 300.3900, L300.4310 ####[facility] [address] [place], [address] PT Coag (PPP) [Time] 20.5 s High 11.7-14.9 [facility] Comment on above: Performed By: #### L 300.3900, L300.4310 ####[facility] [address] [place], [address] Type AND Screen - PAT ONLYon 01-22-2024 ABO and Rh group Nom (Bld) Blood group B Rh(D) positive Normal [facility] Comment on above: Order Comment: Reaso n for Laboratory Test [id number]/ANNSFEMORAL ENDARTECECTOMY Performed By: #### B TSPAT ####[facility] [address] [place], [address] CBC W/Diff, Automatedon 10-0 PATH REV Reviewed Normal [facility] Comment on above: Result Comment: Abso lute lymphocytosis suggestive of low grade lympho-proliferative disorder.Clinical correlation is necessary.Macrocytic anemia.Prashanth Machado M.D. 01/19/24 AMENDED REPORT 01/19/24 1355 PATH REV previously reported as: August Performed By: #### L 500.4050, L501.2450, L100.0100 ####[facility] [address] [place], [address] Gram Stainon 01-18-2024 GS ORDERED INCORRECTLY STOOL CULTURE IS EP PANEL results to Dr. Orozco/ EP PANEL Gram Stn Spec Normal [facility] Comment on above: Performed By: #### M 100.6796, L801.1541, M100.2000, M100.0605, M100.6795 ####[facility] [address] [place], [address] Urine Cultureon 01-18-2024 URC Normal [facility] Comment on above: Performed By: #### M 100.2200 ####[facility] [address] [place], [address] CDIFF (PCR)on 01-17-2024 CDIFF Normal [facility] Comment on above: Performed By: #### M 100.6796, L801.1541, M100.1999, M100.0605, M100.6795 ####[facility] [address] [place], [address] Clostridium Diff Toxin/Agon 01-17-2024 CDIFF (EIA) Normal [facility] Comment on above: Performed By: #### M 100.6796, L801.1541, M100.1999, M100.0605, M100.6795 ####[facility] [address] [place], [address] Stool Lactoferrin/WBCon WBCST Normal [facility] Comment on above: Performed By: #### M 100.6796, L801.1541, M100.1999, M100.0605, M100.6795 ####[facility] [address] [place], [address] Abdomen/Pelvis W IV Cont ONL Yon 01-16-2024 Abdomen/Pelvis W IV Cont ONLY Normal [facility] Comprehensive Metabolic Prof ilon 01-16-2024 Albumin [Mass/Vol] 3.0 g/dL Low 3.2-5.0 [facility] Comment on above: Performed By: #### L 500.4050, L501.2450, L100.0100 ####[facility] [address] [place], [address] Albumin/Globulin [Mass ratio] 1.0 {ratio} Normal 0.9-2.4 [facility] Comment on above: Performed By: #### L 500.4050, L501.2450, L100.0100 ####[facility] [address] [place], [address] ALK P 94 U/L Normal 45-117 [facility] Comment on above: Performed By: #### L 500.4050, L501.2450, L100.0100 ####[facility] [address] [place], [address] ALT [Catalytic activity/Vol] 13 U/L Low 16-61 [facility] Comment on above: Performed By: #### L 500.4050, L501.2450, L100.0100 ####[facility] [address] [place], [address] AST [Catalytic activity/Vol] 16 U/L Normal 15-37 [facility] Comment on above: Performed By: #### L 500.4050, L501.2450, L100.0100 ####[facility] [address] [place], [address] Bilirubin [Mass/Vol] 0.40 mg/dL Normal 0.20-1.00 [facility] Comment on above: Result Comment: For patients on eltrombopag therapy, use of Dimension [place] TBIL is not recommended. Performed By: #### L 500.4050, L501.2450, L100.0100 ####[facility] [address] [place], [address] BUN/CRE 13.7 RATIO Normal 10-20 [facility] Comment on above: Performed By: #### L 500.4050, L501.2450, L100.0100 ####[facility] [address] [place], [address] CA,Total 8.1 mg/dL Low 8.5-10.1 [facility] Comment on above: Performed By: #### L 500.4050, L501.2450, L100.0100 ####[facility] [address] [place], [address] Chloride [Moles/Vol] 108 mmol/L High 98-107 [facility] Comment on above: Performed By: #### L 500.4050, L501.2450, L100.0100 ####[facility] [address] [place], [address] CO2 [Moles/Vol] 24.0 mmol/L Normal 21.0-32.0 [facility] Comment on above: Performed By: #### L 500.4050, L501.2450, L100.0100 ####[facility] [address] [place], [address] Creatinine [Mass/Vol] 1.53 mg/dL High 0.70-1.30 [facility] Comment on above: Result Comment: The validity of the calculated GFR GFRAA in patients over70 years has not been determined. Clinical correlation isessential. Performed By: #### L 500.4050, L501.2450, L100.0100 ####[facility] [address] [place], [address] ECRCL 50.42 ml/min Normal [facility] Comment on above: Performed By: #### L 500.4050, L501.2450, L100.0100 ####[facility] [address] [place], [address] EST GFR - AA 58 mL/min Low >60 [facility] Comment on above: Result Comment: Afri can [place] GFR Calc Performed By: #### L 500.4050, L501.2450, L100.0100 ####[facility] [address] [place], [address] GAP 5 Normal 5-15 [facility] Comment on above: Performed By: #### L 500.4050, L501.2450, L100.0100 ####[facility] [address] [place], [address] GFR/1.73 sq M.predicted among non-blacks MDRD (S/P/Bld) [Vol rate/Area] 48 mL/min/{1.73_m2} Low >60 [facility] Comment on above: Result Comment: Non- GFR Calc Performed By: #### L 500.4050, L501.2450, L100.0100 ####[facility] [address] [place], [address] Globulin (S) [Mass/Vol] 3.0 g/dL Normal 2.2-4.2 [facility] Comment on above: Performed By: #### L 500.4050, L501.2450, L100.0100 ####[facility] [address] [place], [address] Glucose [Mass/Vol] 101 mg/dL Normal 74-106 [facility] Comment on above: Result Comment: Fast ing Glucose result from 100 to 125 mg/dLsuggests IMPAIRED HOMEOSTASIS per A.D.A. criteria. Performed By: #### L 500.4050, L501.2450, L100.0100 ####[facility] [address] [place], [address] Potassium [Moles/Vol] 4.1 mmol/L Normal 3.5-5.1 [facility] Comment on above: Performed By: #### L 500.4050, L501.2450, L100.0100 ####[facility] [address] [place], [address] Sodium [Moles/Vol] 138 mmol/L Normal 136-145 [facility] Comment on above: Performed By: #### L 500.4050, L501.2450, L100.0100 ####[facility] [address] [place], [address] T PROT 6.0 g/dL Low 6.4-8.2 [facility] Comment on above: Performed By: #### L 500.4050, L501.2450, L100.0100 ####[facility] [address] [place], [address] Urea nitrogen [Mass/Vol] 21 mg/dL High 7-18 [facility] Comment on above: Performed By: #### L 500.4050, L501.2450, L100.0100 ####[facility] [address] [place], [address] Emergency Department Summary on 01-16-2024 Emergency Department Summary Normal [facility] Lipaseon 01-16-2024 Lipase [Catalytic activity/Vol] 43 U/L Normal 13-75 [facility] Comment on above: Result Comment: Susan conway note:LIPASE revised reference range effective 22.New Lipase methodology. Expected to produce lower valuesthan the previous assay method.NEW Reference Range: 13 - 75 U/L Performed By: #### L 500.4050, L501.2450, L100.0100 ####[facility] [address] [place], [address] Urinalysis, Completeon 01-15 BACTERIA 2+ /hpf Normal None Seen [facility] Comment on above: Order Comment: CLEAN CATCH Performed By: #### L 400.0001 ####[facility] [address] [place], [address] WBC 0-5 SEEN Normal 0-5 [facility] Comment on above: Order Comment: CLEAN CATCH Performed By: #### L 400.0001 ####[facility] [address] [place], [address] EPI,SQUAMOUS 0 SEEN Normal 0-5 [facility] Comment on above: Order Comment: CLEAN CATCH Performed By: #### L 400.0001 ####[facility] [address] [place], [address] Mucus Ql (Urine sed) 0 SEEN Normal [facility] Comment on above: Order Comment: CLEAN CATCH Performed By: #### L 400.0001 ####[facility] [address] [place], [address] RBC 0 SEEN Normal 0-5 [facility] Comment on above: Order Comment: CLEAN CATCH Performed By: #### L 400.0001 ####[facility] [address] [place], [address] CBC W/Diff, Automatedon 10-0 PATH REV Reviewed Normal [facility] Comment on above: Result Comment: Abso lute lymphocytosis suggestive of low grade lympho-proliferative disorder.Clinical correlation is necessary.Macrocytic anemia.Prashanth Machado M.D. 01/13/24 AMENDED REPORT 01/13/24 1505 PATH REV previously reported as: August Performed By: #### L 501.9520, L506.1000, L501.5200, L500.4050, L501.9910, L100.0100 ####[facility] [address] [place], [address] 12 Lead EKGon 01-12-2024 12 Lead EKG Normal [facility] 12 Lead EKG Normal [facility] Chest PA and Lateralon 01-11 Chest PA and Lateral Normal [facility] Comprehensive Metabolic Prof ilon 01-12-2024 Albumin [Mass/Vol] 3.2 g/dL Normal 3.2-5.0 [facility] Comment on above: Performed By: #### L 501.9520, L506.1000, L501.5200, L500.4050, L501.9910, L100.0100 ####[facility] [address] [place], [address] Albumin/Globulin [Mass ratio] 0.9 {ratio} Normal 0.9-2.4 [facility] Comment on above: Performed By: #### L 501.9520, L506.1000, L501.5200, L500.4050, L501.9910, L100.0100 ####[facility] [address] [place], [address] ALK P 101 U/L Normal 45-117 [facility] Comment on above: Performed By: #### L 501.9520, L506.1000, L501.5200, L500.4050, L501.9910, L100.0100 ####[facility] [address] [place], [address] ALT [Catalytic activity/Vol] 15 U/L Low 16-61 [facility] Comment on above: Performed By: #### L 501.9520, L506.1000, L501.5200, L500.4050, L501.9910, L100.0100 ####[facility] [address] [place], [address] AST [Catalytic activity/Vol] 13 U/L Low 15-37 [facility] Comment on above: Performed By: #### L 501.9520, L506.1000, L501.5200, L500.4050, L501.9910, L100.0100 ####[facility] [address] [place], [address] Bilirubin [Mass/Vol] 0.50 mg/dL Normal 0.20-1.00 [facility] Comment on above: Result Comment: For patients on eltrombopag therapy, use of Dimension [place] TBIL is not recommended. Performed By: #### L 501.9520, L506.1000, L501.5200, L500.4050, L501.9910, L100.0100 ####[facility] [address] [place], [address] BUN/CRE 14.3 RATIO Normal 10-20 [facility] Comment on above: Performed By: #### L 501.9520, L506.1000, L501.5200, L500.4050, L501.9910, L100.0100 ####[facility] [address] [place], [address] CA,Total 7.2 mg/dL Low 8.5-10.1 [facility] Comment on above: Performed By: #### L 501.9520, L506.1000, L501.5200, L500.4050, L501.9910, L100.0100 ####[facility] [address] [place], [address] Chloride [Moles/Vol] 108 mmol/L High 98-107 [facility] Comment on above: Performed By: #### L 501.9520, L506.1000, L501.5200, L500.4050, L501.9910, L100.0100 ####[facility] [address] [place], [address] CO2 [Moles/Vol] 22.0 mmol/L Normal 21.0-32.0 [facility] Comment on above: Performed By: #### L 501.9520, L506.1000, L501.5200, L500.4050, L501.9910, L100.0100 ####[facility] [address] [place], [address] Creatinine [Mass/Vol] 1.89 mg/dL High 0.70-1.30 [facility] Comment on above: Result Comment: The validity of the calculated GFR GFRAA in patients over70 years has not been determined. Clinical correlation isessential. Performed By: #### L 501.9520, L506.1000, L501.5200, L500.4050, L501.9910, L100.0100 ####[facility] [address] [place], [address] EST GFR - AA 46 mL/min Low >60 [facility] Comment on above: Result Comment: Afri can [place] GFR Calc Performed By: #### L 501.9520, L506.1000, L501.5200, L500.4050, L501.9910, L100.0100 ####[facility] [address] [place], [address] GAP 12 Normal 5-15 [facility] Comment on above: Performed By: #### L 501.9520, L506.1000, L501.5200, L500.4050, L501.9910, L100.0100 ####[facility] [address] [place], [address] GFR/1.73 sq M.predicted among non-blacks MDRD (S/P/Bld) [Vol rate/Area] 38 mL/min/{1.73_m2} Low >60 [facility] Comment on above: Result Comment: Non- GFR Calc Performed By: #### L 501.9520, L506.1000, L501.5200, L500.4050, L501.9910, L100.0100 ####[facility] [address] [place], [address] Globulin (S) [Mass/Vol] 3.4 g/dL Normal 2.2-4.2 [facility] Comment on above: Performed By: #### L 501.9520, L506.1000, L501.5200, L500.4050, L501.9910, L100.0100 ####[facility] [address] [place], [address] Glucose [Mass/Vol] 104 mg/dL Normal 74-106 [facility] Comment on above: Result Comment: Fast ing Glucose result from 100 to 125 mg/dLsuggests IMPAIRED HOMEOSTASIS per A.D.A. criteria. Performed By: #### L 501.9520, L506.1000, L501.5200, L500.4050, L501.9910, L100.0100 ####[facility] [address] [place], [address] Potassium [Moles/Vol] 4.0 mmol/L Normal 3.5-5.1 [facility] Comment on above: Performed By: #### L 501.9520, L506.1000, L501.5200, L500.4050, L501.9910, L100.0100 ####[facility] [address] [place], [address] Sodium [Moles/Vol] 142 mmol/L Normal 136-145 [facility] Comment on above: Performed By: #### L 501.9520, L506.1000, L501.5200, L500.4050, L501.9910, L100.0100 ####[facility] [address] [place], [address] T PROT 6.6 g/dL Normal 6.4-8.2 [facility] Comment on above: Performed By: #### L 501.9520, L506.1000, L501.5200, L500.4050, L501.9910, L100.0100 ####[facility] [address] [place], [address] Urea nitrogen [Mass/Vol] 27 mg/dL High 7-18 [facility] Comment on above: Performed By: #### L 501.9520, L506.1000, L501.5200, L500.4050, L501.9910, L100.0100 ####[facility] [address] [place], [address] Emergency Department Summary on 01-12-2024 Emergency Department Summary Normal [facility] L501.4020on 01-12-2024 TROPONIN-I HS 10 pg/mL Normal 3.0-78.0 [facility] Comment on above: Order Comment: 'TROP ' Serial specimen #1, #2 or #3: 1 Result Comment: Plea se Note: New Test Units and Gender Specific Reference Ranges. For more information see Policy Stat Procedure [place] High Sensitivity Troponin (TNIH) and attachments. Performed By: #### L 501.4020, L501.2300 ####[facility] [address] [place], [address] Magnesiumon 01-12-2024 Magnesium [Mass/Vol] 1.0 mg/dL Low 1.6-2.6 [facility] Comment on above: Performed By: #### L 501.5200 ####[facility] [address] [place], [address] Magnesium [Mass/Vol] 0.6 mg/dL Invalid Interpretation Code 1.6-2.6 [facility] Comment on above: Result Comment: Crit ical Result(s) Called at: 14:51:21 01/12/2024 by: CAIN Cooper. Results read back by same. Performed By: #### L 501.9520, L506.1000, L501.5200, L500.4050, L501.9910, L100.0100 ####[facility] [address] [place], [address] PSA,Total - Annual Screenon 01-12-2024 PSA,TOT SCREEN 5.50 ng/mL High 0.00-4.00 [facility] Comment on above: Result Comment: This test was performed using the TPSA assay method for [employer] chemistry system. Values obtained with differentassay methods cannot be used interchangably.When changing PSA assays in the course of monitoring apatient, additional sequential testing should be carriedout to confirm baseline values. Performed By: #### L 501.9520, L506.1000, L501.5200, L500.4050, L501.9910, L100.0100 ####[facility] [address] [place], [address] Phosphoruson 01-12-2024 Phosphate [Mass/Vol] 2.5 mg/dL Normal 2.5-4.9 [facility] Comment on above: Order Comment: 'TROP ' Serial specimen #1, #2 or #3: 1 Performed By: #### L 501.4020, L501.2300 ####[facility] [address] [place], [address] Thyroid Stim Hormone (TSH)on 01-12-2024 TSH 0.616 uIU/mL Normal 0.358-3.740 [facility] Comment on above: Performed By: #### L 501.9520, L506.1000, L501.5200, L500.4050, L501.9910, L100.0100 ####[facility] [address] [place], [address] Vitamin D,25 Hydroxyon 01-11 Vitamin D 25-OH 50.6 ng/mL Normal [facility] Comment on above: Result Comment: Mila min D 25(OH) Status Range Deficiency <20 ng/mL (50nmol/L) Insufficiency 20 - 30 ng/mL (50 - 75 nmol/L) Sufficiency 30 - 100 ng/mL (75 - 250 nmol/L) Toxicity >100 ng/mL (>250 nmol/L) Performed By: #### L 501.9520, L506.1000, L501.5200, L500.4050, L501.9910, L100.0100 ####[facility] [address] [place], [address] MR/BMS.BVSon 01-01-2024 MR/BMS.BVS Normal [facility] Magnesiumon 12-25-2023 Magnesium [Mass/Vol] 1.1 mg/dL Low 1.6-2.6 [facility] Comment on above: Performed By: #### L 500.3600, L506.1000, L501.5200, L509.1000 ####[facility] [address] [place], [address] PTHINon 12-25-2023 PTH 69.5 pg/mL Normal 18.4-80.1 [facility] Comment on above: Performed By: #### L 500.3600, L506.1000, L501.5200, L509.1000 ####[facility] [address] [place], [address] Renal Profileon 12-25-2023 Albumin [Mass/Vol] 3.6 g/dL Normal 3.2-5.0 [facility] Comment on above: Performed By: #### L 500.3600, L506.1000, L501.5200, L509.1000 ####[facility] [address] [place], [address] BUN/CRE 25.8 RATIO High 10-20 [facility] Comment on above: Performed By: #### L 500.3600, L506.1000, L501.5200, L509.1000 ####[facility] [address] [place], [address] CA,Total 8.1 mg/dL Low 8.5-10.1 [facility] Comment on above: Performed By: #### L 500.3600, L506.1000, L501.5200, L509.1000 ####[facility] [address] [place], [address] Chloride [Moles/Vol] 109 mmol/L High 98-107 [facility] Comment on above: Performed By: #### L 500.3600, L506.1000, L501.5200, L509.1000 ####[facility] [address] [place], [address] CO2 [Moles/Vol] 20.0 mmol/L Low 21.0-32.0 [facility] Comment on above: Performed By: #### L 500.3600, L506.1000, L501.5200, L509.1000 ####[facility] [address] [place], [address] Creatinine [Mass/Vol] 1.59 mg/dL High 0.70-1.30 [facility] Comment on above: Result Comment: The validity of the calculated GFR GFRAA in patients over70 years has not been determined. Clinical correlation isessential. Performed By: #### L 500.3600, L506.1000, L501.5200, L509.1000 ####[facility] [address] [place], [address] EST GFR - AA 56 mL/min Low >60 [facility] Comment on above: Result Comment: Afri can [place] GFR Calc Performed By: #### L 500.3600, L506.1000, L501.5200, L509.1000 ####[facility] [address] [place], [address] GFR/1.73 sq M.predicted among non-blacks MDRD (S/P/Bld) [Vol rate/Area] 46 mL/min/{1.73_m2} Low >60 [facility] Comment on above: Result Comment: Non- GFR Calc Performed By: #### L 500.3600, L506.1000, L501.5200, L509.1000 ####[facility] [address] [place], [address] Glucose [Mass/Vol] 110 mg/dL High 74-106 [facility] Comment on above: Result Comment: Fast ing Glucose result from 100 to 125 mg/dLsuggests IMPAIRED HOMEOSTASIS per A.D.A. criteria. Performed By: #### L 500.3600, L506.1000, L501.5200, L509.1000 ####[facility] [address] [place], [address] Phosphate [Mass/Vol] 3.5 mg/dL Normal 2.5-4.9 [facility] Comment on above: Performed By: #### L 500.3600, L506.1000, L501.5200, L509.1000 ####[facility] [address] [place], [address] Potassium [Moles/Vol] 4.6 mmol/L Normal 3.5-5.1 [facility] Comment on above: Performed By: #### L 500.3600, L506.1000, L501.5200, L509.1000 ####[facility] [address] [place], [address] Sodium [Moles/Vol] 138 mmol/L Normal 136-145 [facility] Comment on above: Performed By: #### L 500.3600, L506.1000, L501.5200, L509.1000 ####[facility] [address] [place], [address] Urea nitrogen [Mass/Vol] 41 mg/dL High 7-18 [facility] Comment on above: Performed By: #### L 500.3600, L506.1000, L501.5200, L509.1000 ####[facility] [address] [place], [address] Vitamin D,25 Hydroxyon 12-24 Vitamin D 25-OH 36.6 ng/mL Normal [facility] Comment on above: Result Comment: Mila min D 25(OH) Status Range Deficiency <20 ng/mL (50nmol/L) Insufficiency 20 - 30 ng/mL (50 - 75 nmol/L) Sufficiency 30 - 100 ng/mL (75 - 250 nmol/L) Toxicity >100 ng/mL (>250 nmol/L) Performed By: #### L 500.3600, L506.1000, L501.5200, L509.1000 ####[facility] [address] [place], [address] CBC W/Diff, Automatedon - PATH REV Reviewed Normal [facility] Comment on above: Result Comment: Abso lute lymphocytosis suggestive of low grade lympho-proliferative disorder.Clinical correlation is necessary.Macrocytic anemia.Prashanth Machado M.D. 12/18/23 AMENDED REPORT 12/18/23 1015 PATH REV previously reported as: August kathe Performed By: #### L 503.6550, L100.0100, L500.4050, L503.6030 ####[facility] [address] [place], [address] Comprehensive Metabolic Prof ilon 12-17-2023 Albumin [Mass/Vol] 3.6 g/dL Normal 3.2-5.0 [facility] Comment on above: Performed By: #### L 503.6550, L100.0100, L500.4050, L503.6030 ####[facility] [address] [place], [address] Albumin/Globulin [Mass ratio] 1.3 {ratio} Normal 0.9-2.4 [facility] Comment on above: Performed By: #### L 503.6550, L100.0100, L500.4050, L503.6030 ####[facility] [address] [place], [address] ALK P 60 U/L Normal 45-117 [facility] Comment on above: Performed By: #### L 503.6550, L100.0100, L500.4050, L503.6030 ####[facility] [address] [place], [address] ALT [Catalytic activity/Vol] 39 U/L Normal 16-61 [facility] Comment on above: Performed By: #### L 503.6550, L100.0100, L500.4050, L503.6030 ####[facility] [address] [place], [address] AST [Catalytic activity/Vol] 23 U/L Normal 15-37 [facility] Comment on above: Performed By: #### L 503.6550, L100.0100, L500.4050, L503.6030 ####[facility] [address] [place], [address] Bilirubin [Mass/Vol] 0.50 mg/dL Normal 0.20-1.00 [facility] Comment on above: Result Comment: For patients on eltrombopag therapy, use of Dimension [place] TBIL is not recommended. Performed By: #### L 503.6550, L100.0100, L500.4050, L503.6030 ####[facility] [address] [place], [address] BUN/CRE 21.7 RATIO High 10-20 [facility] Comment on above: Performed By: #### L 503.6550, L100.0100, L500.4050, L503.6030 ####[facility] [address] [place], [address] CA,Total 6.5 mg/dL Invalid Interpretation Code 8.5-10.1 [facility] Comment on above: Performed By: #### L 503.6550, L100.0100, L500.4050, L503.6030 ####[facility] [address] [place], [address] Chloride [Moles/Vol] 107 mmol/L Normal 98-107 [facility] Comment on above: Performed By: #### L 503.6550, L100.0100, L500.4050, L503.6030 ####[facility] [address] [place], [address] CO2 [Moles/Vol] 27.0 mmol/L Normal 21.0-32.0 [facility] Comment on above: Performed By: #### L 503.6550, L100.0100, L500.4050, L503.6030 ####[facility] [address] [place], [address] Creatinine [Mass/Vol] 1.98 mg/dL High 0.70-1.30 [facility] Comment on above: Result Comment: The validity of the calculated GFR GFRAA in patients over70 years has not been determined. Clinical correlation isessential. Performed By: #### L 503.6550, L100.0100, L500.4050, L503.6030 ####[facility] [address] [place], [address] ECRCL 39.54 ml/min Normal [facility] Comment on above: Performed By: #### L 503.6550, L100.0100, L500.4050, L503.6030 ####[facility] [address] [place], [address] EST GFR - AA 43 mL/min Low >60 [facility] Comment on above: Result Comment: Afri can [place] GFR Calc Performed By: #### L 503.6550, L100.0100, L500.4050, L503.6030 ####[facility] [address] [place], [address] GAP 6 Normal 5-15 [facility] Comment on above: Performed By: #### L 503.6550, L100.0100, L500.4050, L503.6030 ####[facility] [address] [place], [address] GFR/1.73 sq M.predicted among non-blacks MDRD (S/P/Bld) [Vol rate/Area] 36 mL/min/{1.73_m2} Low >60 [facility] Comment on above: Result Comment: Non- GFR Calc Performed By: #### L 503.6550, L100.0100, L500.4050, L503.6030 ####[facility] [address] [place], [address] Globulin (S) [Mass/Vol] 2.8 g/dL Normal 2.2-4.2 [facility] Comment on above: Performed By: #### L 503.6550, L100.0100, L500.4050, L503.6030 ####[facility] [address] [place], [address] Glucose [Mass/Vol] 95 mg/dL Normal 74-106 [facility] Comment on above: Performed By: #### L 503.6550, L100.0100, L500.4050, L503.6030 ####[facility] [address] [place], [address] Potassium [Moles/Vol] 4.7 mmol/L Normal 3.5-5.1 [facility] Comment on above: Performed By: #### L 503.6550, L100.0100, L500.4050, L503.6030 ####[facility] [address] [place], [address] Sodium [Moles/Vol] 140 mmol/L Normal 136-145 [facility] Comment on above: Performed By: #### L 503.6550, L100.0100, L500.4050, L503.6030 ####[facility] [address] [place], [address] T PROT 6.4 g/dL Normal 6.4-8.2 [facility] Comment on above: Performed By: #### L 503.6550, L100.0100, L500.4050, L503.6030 ####[facility] [address] [place], [address] Urea nitrogen [Mass/Vol] 43 mg/dL High 7-18 [facility] Comment on above: Performed By: #### L 503.6550, L100.0100, L500.4050, L503.6030 ####[facility] [address] [place], [address] Ferritinon 12-17-2023 Ferritin [Mass/Vol] 72 ng/mL Normal 26-388 [facility] Comment on above: Performed By: #### L 503.6550, L100.0100, L500.4050, L503.6030 ####[facility] [address] [place], [address] Iron+Iron Binding Capacityon 09-04-2024 Iron [Mass/Vol] 156 ug/dL Normal 65-175 [facility] Comment on above: Performed By: #### L 503.6550, L100.0100, L500.4050, L503.6030 ####[facility] [address] [place], [address] IRON SATURATION 47.3 Normal 15.0-55.0 [facility] Comment on above: Performed By: #### L 503.6550, L100.0100, L500.4050, L503.6030 ####[facility] [address] [place], [address] TIBC 330 ug/dL Normal 250-450 [facility] Comment on above: Performed By: #### L 503.6550, L100.0100, L500.4050, L503.6030 ####[facility] [address] [place], [address] Oncology Visit Reporton Oncology Visit Report Normal [facility] CTA Abd w/Runoff W/WO Contra ston 12-10-2023 CTA Abd w/Runoff W/WO Contrast Normal [facility] Basic Metabolic Profile (BMP )on 12-02-2023 BUN Normal -18 [facility] Comment on above: Result Comment: Canc elled via OM: Order cancelled - Patient discharged Performed By: #### L 500.2500, L100.0100 ####[facility] [address] [place], [address] BUN/CRE Normal 10-20 [facility] Comment on above: Result Comment: Canc elled via OM: Order cancelled - Patient discharged Performed By: #### L 500.2500, L100.0100 ####[facility] [address] [place], [address] CA,Total Normal 8.5-10.1 [facility] Comment on above: Result Comment: Canc elled via OM: Order cancelled - Patient discharged Performed By: #### L 500.2500, L100.0100 ####[facility] [address] [place], [address] CL Normal 98-107 [facility] Comment on above: Result Comment: Canc elled via OM: Order cancelled - Patient discharged Performed By: #### L 500.2500, L100.0100 ####[facility] [address] [place], [address] CO2 Normal 21.0-32.0 [facility] Comment on above: Result Comment: Canc elled via OM: Order cancelled - Patient discharged Performed By: #### L 500.2500, L100.0100 ####[facility] [address] [place], [address] CREAT,SERUM Normal 0.70-1.30 [facility] Comment on above: Result Comment: Canc elled via OM: Order cancelled - Patient discharged Performed By: #### L 500.2500, L100.0100 ####[facility] [address] [place], [address] EST GFR Normal >60 [facility] Comment on above: Result Comment: Canc elled via OM: Order cancelled - Patient discharged Performed By: #### L 500.2500, L100.0100 ####[facility] [address] [place], [address] EST GFR - AA Normal >60 [facility] Comment on above: Result Comment: Canc elled via OM: Order cancelled - Patient discharged Performed By: #### L 500.2500, L100.0100 ####[facility] [address] [place], [address] GAP Normal 5-15 [facility] Comment on above: Result Comment: Canc elled via OM: Order cancelled - Patient discharged Performed By: #### L 500.2500, L100.0100 ####[facility] [address] [place], [address] GLU Normal 74-106 [facility] Comment on above: Result Comment: Canc elled via OM: Order cancelled - Patient discharged Performed By: #### L 500.2500, L100.0100 ####[facility] [address] [place], [address] Potassium Normal 3.5-5.1 [facility] Comment on above: Result Comment: Canc elled via OM: Order cancelled - Patient discharged Performed By: #### L 500.2500, L100.0100 ####[facility] [address] [place], [address] Basic Metabolic Profile (BMP) Normal 136-145 [facility] Comment on above: Result Comment: Canc elled via OM: Order cancelled - Patient discharged Performed By: #### L 500.2500, L100.0100 ####[facility] [address] [place], [address] CBC W/Diff, Automatedon 08-2 0-2023 Absolute Neut Normal 2.0-7.7 [facility] Comment on above: Result Comment: Canc elled via OM: Order cancelled - Patient discharged Performed By: #### L 500.2500, L100.0100 ####[facility] [address] [place], [address] HCT Normal 40-54 [facility] Comment on above: Result Comment: Canc elled via OM: Order cancelled - Patient discharged Performed By: #### L 500.2500, L100.0100 ####[facility] [address] [place], [address] HGB Normal 13.0-16.5 [facility] Comment on above: Result Comment: Canc elled via OM: Order cancelled - Patient discharged Performed By: #### L 500.2500, L100.0100 ####[facility] [address] [place], [address] MCH Normal 27.0-32.0 [facility] Comment on above: Result Comment: Canc elled via OM: Order cancelled - Patient discharged Performed By: #### L 500.2500, L100.0100 ####[facility] [address] [place], [address] MCHC Normal 32-36 [facility] Comment on above: Result Comment: Canc elled via OM: Order cancelled - Patient discharged Performed By: #### L 500.2500, L100.0100 ####[facility] [address] [place], [address] MCV Normal 80-94 [facility] Comment on above: Result Comment: Canc elled via OM: Order cancelled - Patient discharged Performed By: #### L 500.2500, L100.0100 ####[facility] [address] [place], [address] NEUT% Normal 47-70 [facility] Comment on above: Result Comment: Canc elled via OM: Order cancelled - Patient discharged Performed By: #### L 500.2500, L100.0100 ####[facility] [address] [place], [address] PLT Normal 150-450 [facility] Comment on above: Result Comment: Canc elled via OM: Order cancelled - Patient discharged Performed By: #### L 500.2500, L100.0100 ####[facility] [address] [place], [address] RBC Normal 4.6-6.2 [facility] Comment on above: Result Comment: Canc elled via OM: Order cancelled - Patient discharged Performed By: #### L 500.2500, L100.0100 ####[facility] [address] [place], [address] RDW CV Normal 11.6-14.6 [facility] Comment on above: Result Comment: Canc elled via OM: Order cancelled - Patient discharged Performed By: #### L 500.2500, L100.0100 ####[facility] [address] [place], [address] RDW SD Normal 35.1-43.9 [facility] Comment on above: Result Comment: Canc elled via OM: Order cancelled - Patient discharged Performed By: #### L 500.2500, L100.0100 ####[facility] [address] [place], [address] WBC Normal 4.4-11.0 [facility] Comment on above: Result Comment: Canc elled via OM: Order cancelled - Patient discharged Performed By: #### L 500.2500, L100.0100 ####[facility] [address] [place], [address] Basic Metabolic Profile (BMP )on 11-25-2023 BUN Normal 7-18 [facility] Comment on above: Result Comment: Canc elled via OM: Order cancelled - Patient discharged Performed By: #### L 100.0100, L500.2500 ####[facility] [address] [place], [address] BUN/CRE Normal 10-20 [facility] Comment on above: Result Comment: Canc elled via OM: Order cancelled - Patient discharged Performed By: #### L 100.0100, L500.2500 ####[facility] [address] [place], [address] CA,Total Normal 8.5-10.1 [facility] Comment on above: Result Comment: Canc elled via OM: Order cancelled - Patient discharged Performed By: #### L 100.0100, L500.2500 ####[facility] [address] [place], [address] CL Normal 98-107 [facility] Comment on above: Result Comment: Canc elled via OM: Order cancelled - Patient discharged Performed By: #### L 100.0100, L500.2500 ####[facility] [address] [place], [address] CO2 Normal 21.0-32.0 [facility] Comment on above: Result Comment: Canc elled via OM: Order cancelled - Patient discharged Performed By: #### L 100.0100, L500.2500 ####[facility] [address] [place], [address] CREAT,SERUM Normal 0.70-1.30 [facility] Comment on above: Result Comment: Canc elled via OM: Order cancelled - Patient discharged Performed By: #### L 100.0100, L500.2500 ####[facility] [address] [place], [address] EST GFR Normal >60 [facility] Comment on above: Result Comment: Canc elled via OM: Order cancelled - Patient discharged Performed By: #### L 100.0100, L500.2500 ####[facility] [address] [place], [address] EST GFR - AA Normal >60 [facility] Comment on above: Result Comment: Canc elled via OM: Order cancelled - Patient discharged Performed By: #### L 100.0100, L500.2500 ####[facility] [address] [place], [address] GAP Normal 5-15 [facility] Comment on above: Result Comment: Canc elled via OM: Order cancelled - Patient discharged Performed By: #### L 100.0100, L500.2500 ####[facility] [address] [place], [address] GLU Normal 74-106 [facility] Comment on above: Result Comment: Canc elled via OM: Order cancelled - Patient discharged Performed By: #### L 100.0100, L500.2500 ####[facility] [address] [place], [address] Potassium Normal 3.5-5.1 [facility] Comment on above: Result Comment: Canc elled via OM: Order cancelled - Patient discharged Performed By: #### L 100.0100, L500.2500 ####[facility] [address] [place], [address] Basic Metabolic Profile (BMP) Normal 136-145 [facility] Comment on above: Result Comment: Canc elled via OM: Order cancelled - Patient discharged Performed By: #### L 100.0100, L500.2500 ####[facility] [address] [place], [address] CBC W/Diff, Automatedon 08- Absolute Neut Normal 2.0-7.7 [facility] Comment on above: Result Comment: Canc elled via OM: Order cancelled - Patient discharged Performed By: #### L 100.0100, L500.2500 ####[facility] [address] [place], [address] HCT Normal 40-54 [facility] Comment on above: Result Comment: Canc elled via OM: Order cancelled - Patient discharged Performed By: #### L 100.0100, L500.2500 ####[facility] [address] [place], [address] HGB Normal 13.0-16.5 [facility] Comment on above: Result Comment: Canc elled via OM: Order cancelled - Patient discharged Performed By: #### L 100.0100, L500.2500 ####[facility] [address] [place], [address] MCH Normal 27.0-32.0 [facility] Comment on above: Result Comment: Canc elled via OM: Order cancelled - Patient discharged Performed By: #### L 100.0100, L500.2500 ####[facility] [address] [place], [address] MCHC Normal 32-36 [facility] Comment on above: Result Comment: Canc elled via OM: Order cancelled - Patient discharged Performed By: #### L 100.0100, L500.2500 ####[facility] [address] [place], [address] MCV Normal 80-94 [facility] Comment on above: Result Comment: Canc elled via OM: Order cancelled - Patient discharged Performed By: #### L 100.0100, L500.2500 ####[facility] [address] [place], [address] NEUT% Normal 47-70 [facility] Comment on above: Result Comment: Canc elled via OM: Order cancelled - Patient discharged Performed By: #### L 100.0100, L500.2500 ####[facility] [address] [place], [address] PLT Normal 150-450 [facility] Comment on above: Result Comment: Canc elled via OM: Order cancelled - Patient discharged Performed By: #### L 100.0100, L500.2500 ####[facility] [address] [place], [address] RBC Normal 4.6-6.2 [facility] Comment on above: Result Comment: Canc elled via OM: Order cancelled - Patient discharged Performed By: #### L 100.0100, L500.2500 ####[facility] [address] [place], [address] RDW CV Normal 11.6-14.6 [facility] Comment on above: Result Comment: Canc elled via OM: Order cancelled - Patient discharged Performed By: #### L 100.0100, L500.2500 ####[facility] [address] [place], [address] RDW SD Normal 35.1-43.9 [facility] Comment on above: Result Comment: Canc elled via OM: Order cancelled - Patient discharged Performed By: #### L 100.0100, L500.2500 ####[facility] [address] [place], [address] WBC Normal 4.4-11.0 [facility] Comment on above: Result Comment: Canc elled via OM: Order cancelled - Patient discharged Performed By: #### L 100.0100, L500.2500 ####[facility] [address] [place], [address] L/S Spine Min 4 Viewson 08-0 -2023 L/S Spine Min 4 Views Normal [facility] Orthopedic Visit Reporton Orthopedic Visit Report Normal [facility] Basic Metabolic Profile (BMP )on 11-18-2023 BUN Normal 7-18 [facility] Comment on above: Result Comment: Canc elled via OM: Order cancelled - Patient discharged Performed By: #### L 500.2500, L100.0100 ####[facility] [address] [place], [address] BUN/CRE Normal 10-20 [facility] Comment on above: Result Comment: Canc elled via OM: Order cancelled - Patient discharged Performed By: #### L 500.2500, L100.0100 ####[facility] [address] [place], [address] CA,Total Normal 8.5-10.1 [facility] Comment on above: Result Comment: Canc elled via OM: Order cancelled - Patient discharged Performed By: #### L 500.2500, L100.0100 ####[facility] [address] [place], [address] CL Normal 98-107 [facility] Comment on above: Result Comment: Canc elled via OM: Order cancelled - Patient discharged Performed By: #### L 500.2500, L100.0100 ####[facility] [address] [place], [address] CO2 Normal 21.0-32.0 [facility] Comment on above: Result Comment: Canc elled via OM: Order cancelled - Patient discharged Performed By: #### L 500.2500, L100.0100 ####[facility] [address] [place], [address] CREAT,SERUM Normal 0.70-1.30 [facility] Comment on above: Result Comment: Canc elled via OM: Order cancelled - Patient discharged Performed By: #### L 500.2500, L100.0100 ####[facility] [address] [place], [address] EST GFR Normal >60 [facility] Comment on above: Result Comment: Canc elled via OM: Order cancelled - Patient discharged Performed By: #### L 500.2500, L100.0100 ####[facility] [address] [place], [address] EST GFR - AA Normal >60 [facility] Comment on above: Result Comment: Canc elled via OM: Order cancelled - Patient discharged Performed By: #### L 500.2500, L100.0100 ####[facility] [address] [place], [address] GAP Normal 5-15 [facility] Comment on above: Result Comment: Canc elled via OM: Order cancelled - Patient discharged Performed By: #### L 500.2500, L100.0100 ####[facility] [address] [place], [address] GLU Normal 74-106 [facility] Comment on above: Result Comment: Canc elled via OM: Order cancelled - Patient discharged Performed By: #### L 500.2500, L100.0100 ####[facility] [address] [place], [address] Potassium Normal 3.5-5.1 [facility] Comment on above: Result Comment: Canc elled via OM: Order cancelled - Patient discharged Performed By: #### L 500.2500, L100.0100 ####[facility] [address] [place], [address] Basic Metabolic Profile (BMP) Normal 136-145 [facility] Comment on above: Result Comment: Canc elled via OM: Order cancelled - Patient discharged Performed By: #### L 500.2500, L100.0100 ####[facility] [address] [place], [address] CBC W/Diff, Automatedon 08-0 -2023 Absolute Neut Normal 2.0-7.7 [facility] Comment on above: Result Comment: Canc elled via OM: Order cancelled - Patient discharged Performed By: #### L 500.2500, L100.0100 ####[facility] [address] [place], [address] HCT Normal 40-54 [facility] Comment on above: Result Comment: Canc elled via OM: Order cancelled - Patient discharged Performed By: #### L 500.2500, L100.0100 ####[facility] [address] [place], [address] HGB Normal 13.0-16.5 [facility] Comment on above: Result Comment: Canc elled via OM: Order cancelled - Patient discharged Performed By: #### L 500.2500, L100.0100 ####[facility] [address] [place], [address] MCH Normal 27.0-32.0 [facility] Comment on above: Result Comment: Canc elled via OM: Order cancelled - Patient discharged Performed By: #### L 500.2500, L100.0100 ####[facility] [address] [place], [address] MCHC Normal 32-36 [facility] Comment on above: Result Comment: Canc elled via OM: Order cancelled - Patient discharged Performed By: #### L 500.2500, L100.0100 ####[facility] [address] [place], [address] MCV Normal 80-94 [facility] Comment on above: Result Comment: Canc elled via OM: Order cancelled - Patient discharged Performed By: #### L 500.2500, L100.0100 ####[facility] [address] [place], [address] NEUT% Normal 47-70 [facility] Comment on above: Result Comment: Canc elled via OM: Order cancelled - Patient discharged Performed By: #### L 500.2500, L100.0100 ####[facility] [address] [place], [address] PLT Normal 150-450 [facility] Comment on above: Result Comment: Canc elled via OM: Order cancelled - Patient discharged Performed By: #### L 500.2500, L100.0100 ####[facility] [address] [place], [address] RBC Normal 4.6-6.2 [facility] Comment on above: Result Comment: Canc elled via OM: Order cancelled - Patient discharged Performed By: #### L 500.2500, L100.0100 ####[facility] [address] [place], [address] RDW CV Normal 11.6-14.6 [facility] Comment on above: Result Comment: Canc elled via OM: Order cancelled - Patient discharged Performed By: #### L 500.2500, L100.0100 ####[facility] [address] [place], [address] RDW SD Normal 35.1-43.9 [facility] Comment on above: Result Comment: Canc elled via OM: Order cancelled - Patient discharged Performed By: #### L 500.2500, L100.0100 ####[facility] [address] [place], [address] WBC Normal 4.4-11.0 [facility] Comment on above: Result Comment: Canc elled via OM: Order cancelled - Patient discharged Performed By: #### L 500.2500, L100.0100 ####[facility] [address] [place], [address] Basic Metabolic Profile (BMP )on 11-14-2023 BUN/CRE 28.0 RATIO High 10-20 [facility] Comment on above: Performed By: #### L 500.2500 ####[facility] [address] [place], [address] CA,Total 9.2 mg/dL Normal 8.5-10.1 [facility] Comment on above: Performed By: #### L 500.2500 ####[facility] [address] [place], [address] Chloride [Moles/Vol] 114 mmol/L High 98-107 [facility] Comment on above: Performed By: #### L 500.2500 ####[facility] [address] [place], [address] CO2 [Moles/Vol] 18.0 mmol/L Low 21.0-32.0 [facility] Comment on above: Performed By: #### L 500.2500 ####[facility] [address] [place], [address] Creatinine [Mass/Vol] 1.89 mg/dL High 0.70-1.30 [facility] Comment on above: Result Comment: The validity of the calculated GFR GFRAA in patients over70 years has not been determined. Clinical correlation isessential. Performed By: #### L 500.2500 ####[facility] [address] [place], [address] ECRCL 37.55 ml/min Normal [facility] Comment on above: Performed By: #### L 500.2500 ####[facility] [address] [place], [address] EST GFR - AA 46 mL/min Low >60 [facility] Comment on above: Result Comment: Afri can [place] GFR Calc Performed By: #### L 500.2500 ####[facility] [address] [place], [address] GAP 8 Normal 5-15 [facility] Comment on above: Performed By: #### L 500.2500 ####[facility] [address] [place], [address] GFR/1.73 sq M.predicted among non-blacks MDRD (S/P/Bld) [Vol rate/Area] 38 mL/min/{1.73_m2} Low >60 [facility] Comment on above: Result Comment: Non- GFR Calc Performed By: #### L 500.2500 ####[facility] [address] [place], [address] Glucose [Mass/Vol] 94 mg/dL Normal 74-106 [facility] Comment on above: Performed By: #### L 500.2500 ####[facility] [address] [place], [address] Potassium [Moles/Vol] 4.2 mmol/L Normal 3.5-5.1 [facility] Comment on above: Performed By: #### L 500.2500 ####[facility] [address] [place], [address] Sodium [Moles/Vol] 140 mmol/L Normal 136-145 [facility] Comment on above: Performed By: #### L 500.2500 ####[facility] [address] [place], [address] Urea nitrogen [Mass/Vol] 53 mg/dL High 7-18 [facility] Comment on above: Performed By: #### L 500.2500 ####[facility] [address] [place], [address] COVID 19 AG RAPID (RN PATRICIO Carey)on 11-13-2023 SARS-CoV-2 (COVID-19) RNA MYA+probe Ql (Unsp spec) Normal [facility] Comment on above: Performed By: #### M 100.505 ####[facility] [address] [place], [address] Basic Metabolic Profile (BMP )on 11-12-2023 BUN/CRE 25.9 RATIO High 10-20 [facility] Comment on above: Performed By: #### L 500.2500 ####[facility] [address] [place], [address] [place],Total 8.9 mg/dL Normal 8.5-10.1 [facility] Comment on above: Performed By: #### L 500.2500 ####[facility] [address] [place], [address] Chloride [Moles/Vol] 110 mmol/L High 98-107 [facility] Comment on above: Performed By: #### L 500.2500 ####[facility] [address] [place], [address] CO2 [Moles/Vol] 21.0 mmol/L Normal 21.0-32.0 [facility] Comment on above: Performed By: #### L 500.2500 ####[facility] [address] [place], [address] Creatinine [Mass/Vol] 2.20 mg/dL High 0.70-1.30 [facility] Comment on above: Result Comment: The validity of the calculated GFR GFRAA in patients over70 years has not been determined. Clinical correlation isessential. Performed By: #### L 500.2500 ####[facility] [address] [place], [address] ECRCL 32.26 ml/min Normal [facility] Comment on above: Performed By: #### L 500.2500 ####[facility] [address] [place], [address] EST GFR - AA 38 mL/min Low >60 [facility] Comment on above: Result Comment: Afri can [place] GFR Calc Performed By: #### L 500.2500 ####[facility] [address] [place], [address] GAP 8 Normal 5-15 [facility] Comment on above: Performed By: #### L 500.2500 ####[facility] [address] [place], [address] GFR/1.73 sq M.predicted among non-blacks MDRD (S/P/Bld) [Vol rate/Area] 32 mL/min/{1.73_m2} Low >60 [facility] Comment on above: Result Comment: Non- GFR Calc Performed By: #### L 500.2500 ####[facility] [address] [place], [address] Glucose [Mass/Vol] 104 mg/dL Normal 74-106 [facility] Comment on above: Result Comment: Fast ing Glucose result from 100 to 125 mg/dLsuggests IMPAIRED HOMEOSTASIS per A.D.A. criteria. Performed By: #### L 500.2500 ####[facility] [address] [place], [address] Potassium [Moles/Vol] 4.3 mmol/L Normal 3.5-5.1 [facility] Comment on above: Performed By: #### L 500.2500 ####[facility] [address] [place], [address] Sodium [Moles/Vol] 139 mmol/L Normal 136-145 [facility] Comment on above: Performed By: #### L 500.2500 ####[facility] [address] [place], [address] Urea nitrogen [Mass/Vol] 57 mg/dL High 7-18 [facility] Comment on above: Performed By: #### L 500.2500 ####[facility] [address] [place], [address] CBC W/Diff, Automatedon 07-3 PATH REV Reviewed Normal [facility] Comment on above: Result Comment: Abso lute lymphocytosis suggestive of low grade lympho-proliferative disorder.Clinical correlation is necessary.Macrocytic anemia.Prashanth Machado M.D. 11/12/23 AMENDED REPORT 11/12/23 1341 PATH REV previously reported as: August kathe Performed By: #### L 500.2500, L100.0100 ####[facility] [address] [place], [address] Basic Metabolic Profile (BMP )on 11-11-2023 BUN/CRE 27.8 RATIO High 10-20 [facility] Comment on above: Performed By: #### L 500.2500, L100.0100 ####[facility] [address] [place], [address] CA,Total 9.8 mg/dL Normal 8.5-10.1 [facility] Comment on above: Performed By: #### L 500.2500, L100.0100 ####[facility] [address] [place], [address] Chloride [Moles/Vol] 109 mmol/L High 98-107 [facility] Comment on above: Performed By: #### L 500.2500, L100.0100 ####[facility] [address] [place], [address] CO2 [Moles/Vol] 20.0 mmol/L Low 21.0-32.0 [facility] Comment on above: Performed By: #### L 500.2500, L100.0100 ####[facility] [address] [place], [address] Creatinine [Mass/Vol] 1.80 mg/dL High 0.70-1.30 [facility] Comment on above: Result Comment: The validity of the calculated GFR GFRAA in patients over70 years has not been determined. Clinical correlation isessential. Performed By: #### L 500.2500, L100.0100 ####[facility] [address] [place], [address] ECRCL 39.43 ml/min Normal [facility] Comment on above: Performed By: #### L 500.2500, L100.0100 ####[facility] [address] [place], [address] EST GFR - AA 48 mL/min Low >60 [facility] Comment on above: Result Comment: Afri can [place] GFR Calc Performed By: #### L 500.2500, L100.0100 ####[facility] [address] [place], [address] GAP 11 Normal 5-15 [facility] Comment on above: Performed By: #### L 500.2500, L100.0100 ####[facility] [address] [place], [address] GFR/1.73 sq M.predicted among non-blacks MDRD (S/P/Bld) [Vol rate/Area] 40 mL/min/{1.73_m2} Low >60 [facility] Comment on above: Result Comment: Non- GFR Calc Performed By: #### L 500.2500, L100.0100 ####[facility] [address] [place], [address] Glucose [Mass/Vol] 110 mg/dL High 74-106 [facility] Comment on above: Result Comment: Fast ing Glucose result from 100 to 125 mg/dLsuggests IMPAIRED HOMEOSTASIS per A.D.A. criteria. Performed By: #### L 500.2500, L100.0100 ####[facility] [address] [place], [address] Potassium [Moles/Vol] 5.2 mmol/L High 3.5-5.1 [facility] Comment on above: Performed By: #### L 500.2500, L100.0100 ####[facility] [address] [place], [address] Sodium [Moles/Vol] 140 mmol/L Normal 136-145 [facility] Comment on above: Performed By: #### L 500.2500, L100.0100 ####[facility] [address] [place], [address] Urea nitrogen [Mass/Vol] 50 mg/dL High 7-18 [facility] Comment on above: Performed By: #### L 500.2500, L100.0100 ####[facility] [address] [place], [address] Brain without Contraston Brain without Contrast Normal [facility] MR/BMS.BVSon 11-07-2023 MR/BMS.BVS Normal [facility] NCS and/or EMG Patienton NCS and/or EMG Patient Normal [facility] Basic Metabolic Profile (BMP )on 11-04-2023 BUN/CRE 24.5 RATIO High 10-20 [facility] Comment on above: Performed By: #### L 100.0100, L500.2500 ####[facility] [address] [place], [address] CA,Total 9.7 mg/dL Normal 8.5-10.1 [facility] Comment on above: Performed By: #### L 100.0100, L500.2500 ####[facility] [address] [place], [address] Chloride [Moles/Vol] 107 mmol/L Normal 98-107 [facility] Comment on above: Performed By: #### L 100.0100, L500.2500 ####[facility] [address] [place], [address] CO2 [Moles/Vol] 23.0 mmol/L Normal 21.0-32.0 [facility] Comment on above: Performed By: #### L 100.0100, L500.2500 ####[facility] [address] [place], [address] Creatinine [Mass/Vol] 1.43 mg/dL High 0.70-1.30 [facility] Comment on above: Result Comment: The validity of the calculated GFR GFRAA in patients over70 years has not been determined. Clinical correlation isessential. Performed By: #### L 100.0100, L500.2500 ####[facility] [address] [place], [address] ECRCL 49.63 ml/min Normal [facility] Comment on above: Performed By: #### L 100.0100, L500.2500 ####[facility] [address] [place], [address] EST GFR - AA 63 mL/min Normal >60 [facility] Comment on above: Result Comment: Afri can [place] GFR Calc Performed By: #### L 100.0100, L500.2500 ####[facility] [address] [place], [address] GAP 11 Normal 5-15 [facility] Comment on above: Performed By: #### L 100.0100, L500.2500 ####[facility] [address] [place], [address] GFR/1.73 sq M.predicted among non-blacks MDRD (S/P/Bld) [Vol rate/Area] 52 mL/min/{1.73_m2} Low >60 [facility] Comment on above: Result Comment: Non- GFR Calc Performed By: #### L 100.0100, L500.2500 ####[facility] [address] [place], [address] Glucose [Mass/Vol] 102 mg/dL Normal 74-106 [facility] Comment on above: Result Comment: Fast ing Glucose result from 100 to 125 mg/dLsuggests IMPAIRED HOMEOSTASIS per A.D.A. criteria. Performed By: #### L 100.0100, L500.2500 ####[facility] [address] [place], [address] Potassium [Moles/Vol] 5.1 mmol/L Normal 3.5-5.1 [facility] Comment on above: Performed By: #### L 100.0100, L500.2500 ####[facility] [address] [place], [address] Sodium [Moles/Vol] 141 mmol/L Normal 136-145 [facility] Comment on above: Performed By: #### L 100.0100, L500.2500 ####[facility] [address] [place], [address] Urea nitrogen [Mass/Vol] 35 mg/dL High 7-18 [facility] Comment on above: Performed By: #### L 100.0100, L500.2500 ####[facility] [address] [place], [address] CBC W/Diff, Automatedon - PATH REV Reviewed Normal [facility] Comment on above: Result Comment: Abso lute lymphocytosis suggestive of low grade lympho-proliferative disorder.Clinical correlation is necessary.Macrocytic anemia.Prashanth Machado M.D. 11/04/23 AMENDED REPORT 11/04/23 1151 PATH REV previously reported as: August Performed By: #### L 100.0100, L500.2500 ####[facility] [address] [place], [address] PATH REV Reviewed Normal [facility] Comment on above: Result Comment: Abso lute lymphocytosis suggestive of low grade lympho-proliferative disorder.Clinical correlation is necessary.Macrocytic anemia.Prashanth Machado M.D. 11/04/23 AMENDED REPORT 11/04/23 1148 PATH REV previously reported as: August Performed By: #### L 500.2500, L100.0100 ####[facility] [address] [place], [address] 12 Lead EKGon 11-03-2023 12 Lead EKG Normal [facility] Basic Metabolic Profile (BMP )on 11-03-2023 BUN/CRE 22.6 RATIO High 10-20 [facility] Comment on above: Performed By: #### L 500.2500, L100.0100 ####[facility] [address] [place], [address] CA,Total 9.3 mg/dL Normal 8.5-10.1 [facility] Comment on above: Performed By: #### L 500.2500, L100.0100 ####[facility] [address] [place], [address] Chloride [Moles/Vol] 112 mmol/L High 98-107 [facility] Comment on above: Performed By: #### L 500.2500, L100.0100 ####[facility] [address] [place], [address] CO2 [Moles/Vol] 21.0 mmol/L Normal 21.0-32.0 [facility] Comment on above: Performed By: #### L 500.2500, L100.0100 ####[facility] [address] [place], [address] Creatinine [Mass/Vol] 1.37 mg/dL High 0.70-1.30 [facility] Comment on above: Result Comment: The validity of the calculated GFR GFRAA in patients over70 years has not been determined. Clinical correlation isessential. Performed By: #### L 500.2500, L100.0100 ####[facility] [address] [place], [address] ECRCL 51.80 ml/min Normal [facility] Comment on above: Performed By: #### L 500.2500, L100.0100 ####[facility] [address] [place], [address] EST GFR - AA 66 mL/min Normal >60 [facility] Comment on above: Result Comment: Afri can [place] GFR Calc Performed By: #### L 500.2500, L100.0100 ####[facility] [address] [place], [address] GAP 6 Normal 5-15 [facility] Comment on above: Performed By: #### L 500.2500, L100.0100 ####[facility] [address] [place], [address] GFR/1.73 sq M.predicted among non-blacks MDRD (S/P/Bld) [Vol rate/Area] 55 mL/min/{1.73_m2} Low >60 [facility] Comment on above: Result Comment: Non- GFR Calc Performed By: #### L 500.2500, L100.0100 ####[facility] [address] [place], [address] Glucose [Mass/Vol] 112 mg/dL High 74-106 [facility] Comment on above: Result Comment: Fast ing Glucose result from 100 to 125 mg/dLsuggests IMPAIRED HOMEOSTASIS per A.D.A. criteria. Performed By: #### L 500.2500, L100.0100 ####[facility] [address] [place], [address] Potassium [Moles/Vol] 5.0 mmol/L Normal 3.5-5.1 [facility] Comment on above: Performed By: #### L 500.2500, L100.0100 ####[facility] [address] [place], [address] Sodium [Moles/Vol] 139 mmol/L Normal 136-145 [facility] Comment on above: Performed By: #### L 500.2500, L100.0100 ####[facility] [address] [place], [address] Urea nitrogen [Mass/Vol] 31 mg/dL High 10-29 [facility] Comment on above: Performed By: #### L 500.2500, L100.0100 ####[facility] [address] [place], [address] CBC W/Diff, Automatedon 10-13 PATH REV Reviewed Normal [facility] Comment on above: Result Comment: Abso lute lymphocytosis suggestive of low grade lympho-proliferative disorder.Clinical correlation is necessary.Macrocytic anemia.Prashanth Machado M.D. 11/03/23 AMENDED REPORT 11/03/23 1521 PATH REV previously reported as: August Performed By: #### L 100.0100, L500.2500 ####[facility] [address] [place], [address] Vancomycin, Random Levelon 0 11-02-2023 VANCO, RANDOM 17.8 ug/mL High 0.0-15.0 [facility] Comment on above: Result Comment: VANC OMYCIN STANDARD DRUG THERAPY: CRITICAL VALUE IS > 15.0 mg/LVANCOMYCIN HIGH INTENSITY THERAPY: CRITICAL VALUE IS > 20.0 mg/LPLEASE CONTACT PHARMACY SERVICES (#8934) FOR INTERPRETATIONOF RESULTS. THIS RESULT DOES NOT REPRESENT A PEAK OR TROUGHLEVEL FOR THIS DRUG. Performed By: #### L 501.8850 ####[facility] [address] [place], [address] Vancomycin, Trough Levelon 0 - VANCO, TROUGH 22.7 ug/mL High 5.0-15.0 [facility] Comment on above: Order Comment: Comme nts: Trough to be drawn 30 mins prior to scheduled [id number] Result Comment: VANC OMYCIN STANDARED DRUG THERAPY TROUGH LEVEL: 5.0 - 15.0 mg/LVANCOMYCIN HIGH INTENSITY THERAPY TROUGH LEVEL: 15.0 - 20.0 mg/LHigh Intensity therapy recommended for serious lifethreatening infections include:- Emukhpnhut-Mhspaqfxndnh-Wyiivhnah (Ventilator/Healtcare Associated)-SepsisPLEASE CONTACT PHARMACY SERVICES (#6432) FOR INTERPRETATIONOF RESULTS. Performed By: #### L 501.8820 ####[facility] [address] [place], [address] Basic Metabolic Profile (BMP )on 11-01-2023 BUN/CRE 21.4 RATIO High 10-20 [facility] Comment on above: Performed By: #### L 100.0100, L500.2500 ####[facility] [address] [place], [address] CA,Total 7.4 mg/dL Low 8.5-10.1 [facility] Comment on above: Performed By: #### L 100.0100, L500.2500 ####[facility] [address] [place], [address] Chloride [Moles/Vol] 115 mmol/L High 98-107 [facility] Comment on above: Performed By: #### L 100.0100, L500.2500 ####[facility] [address] [place], [address] CO2 [Moles/Vol] 23.0 mmol/L Normal 21.0-32.0 [facility] Comment on above: Performed By: #### L 100.0100, L500.2500 ####[facility] [address] [place], [address] Creatinine [Mass/Vol] 1.31 mg/dL High 0.70-1.30 [facility] Comment on above: Result Comment: The validity of the calculated GFR GFRAA in patients over70 years has not been determined. Clinical correlation isessential. Performed By: #### L 100.0100, L500.2500 ####[facility] [address] [place], [address] ECRCL 54.18 ml/min Normal [facility] Comment on above: Performed By: #### L 100.0100, L500.2500 ####[facility] [address] [place], [address] EST GFR - AA 70 mL/min Normal >60 [facility] Comment on above: Result Comment: Afri can [place] GFR Calc Performed By: #### L 100.0100, L500.2500 ####[facility] [address] [place], [address] GAP 5 Normal 5-15 [facility] Comment on above: Performed By: #### L 100.0100, L500.2500 ####[facility] [address] [place], [address] GFR/1.73 sq M.predicted among non-blacks MDRD (S/P/Bld) [Vol rate/Area] 58 mL/min/{1.73_m2} Low >60 [facility] Comment on above: Result Comment: Non- GFR Calc Performed By: #### L 100.0100, L500.2500 ####[facility] [address] [place], [address] Glucose [Mass/Vol] 103 mg/dL Normal 74-106 [facility] Comment on above: Result Comment: Fast ing Glucose result from 100 to 125 mg/dLsuggests IMPAIRED HOMEOSTASIS per A.D.A. criteria. Performed By: #### L 100.0100, L500.2500 ####[facility] [address] [place], [address] Potassium [Moles/Vol] 4.8 mmol/L Normal 3.5-5.1 [facility] Comment on above: Performed By: #### L 100.0100, L500.2500 ####[facility] [address] [place], [address] Sodium [Moles/Vol] 143 mmol/L Normal 136-145 [facility] Comment on above: Performed By: #### L 100.0100, L500.2500 ####[facility] [address] [place], [address] Urea nitrogen [Mass/Vol] 28 mg/dL High 10-29 [facility] Comment on above: Performed By: #### L 100.0100, L500.2500 ####[facility] [address] [place], [address] Vancomycin, Trough Levelon 0 11-01-2023 VANCO, TROUGH 14.5 ug/mL Normal 5.0-15.0 [facility] Comment on above: Order Comment: Comme nts: DRAW 30 MIN PRIOR TO [id number] Result Comment: VANC OMYCIN STANDARED DRUG THERAPY TROUGH LEVEL: 5.0 - 15.0 mg/LVANCOMYCIN HIGH INTENSITY THERAPY TROUGH LEVEL: 15.0 - 20.0 mg/LHigh Intensity therapy recommended for serious lifethreatening infections include:- Qrlfrusrzz-Ouabcwbdazqn-Zqgeuygzq (Ventilator/Healtcare Associated)-SepsisPLEASE CONTACT PHARMACY SERVICES (#7630) FOR INTERPRETATIONOF RESULTS. Performed By: #### L 501.8820 ####[facility] [address] [place], [address] Basic Metabolic Profile (BMP )on 10-31-2023 BUN/CRE 23.4 RATIO High 01-31 [facility] Comment on above: Performed By: #### L 501.5200, L500.2500 ####[facility] [address] [place], [address] [place],Total 6.8 mg/dL Low 8.5-10.1 [facility] Comment on above: Result Comment: Crit ical Result(s) Called at: 07:17:18 10/31/2023 by: CAIN to Ashia Quinonez. Results read back by same. Performed By: #### L 501.5200, L500.2500 ####[facility] [address] [place], [address] Chloride [Moles/Vol] 110 mmol/L High 98-107 [facility] Comment on above: Performed By: #### L 501.5200, L500.2500 ####[facility] [address] [place], [address] CO2 [Moles/Vol] 22.0 mmol/L Normal 21.0-32.0 [facility] Comment on above: Performed By: #### L 501.5200, L500.2500 ####[facility] [address] [place], [address] Creatinine [Mass/Vol] 1.37 mg/dL High 0.70-1.30 [facility] Comment on above: Result Comment: The validity of the calculated GFR GFRAA in patients over70 years has not been determined. Clinical correlation isessential. Performed By: #### L 501.5200, L500.2500 ####[facility] [address] [place], [address] ECRCL 51.80 ml/min Normal [facility] Comment on above: Performed By: #### L 501.5200, L500.2500 ####[facility] [address] [place], [address] EST GFR - AA 66 mL/min Normal >60 [facility] Comment on above: Result Comment: Afri can [place] GFR Calc Performed By: #### L 501.5200, L500.2500 ####[facility] [address] [place], [address] GAP 12 Normal 5-15 [facility] Comment on above: Performed By: #### L 501.5200, L500.2500 ####[facility] [address] [place], [address] GFR/1.73 sq M.predicted among non-blacks MDRD (S/P/Bld) [Vol rate/Area] 55 mL/min/{1.73_m2} Low >60 [facility] Comment on above: Result Comment: Non- GFR Calc Performed By: #### L 501.5200, L500.2500 ####[facility] [address] [place], [address] Glucose [Mass/Vol] 125 mg/dL High 74-106 [facility] Comment on above: Result Comment: Fast ing Glucose result from 100 to 125 mg/dLsuggests IMPAIRED HOMEOSTASIS per A.D.A. criteria. Performed By: #### L 501.5200, L500.2500 ####[facility] [address] [place], [address] Potassium [Moles/Vol] 4.0 mmol/L Normal 3.5-5.1 [facility] Comment on above: Performed By: #### L 501.5200, L500.2500 ####[facility] [address] [place], [address] Sodium [Moles/Vol] 144 mmol/L Normal 136-145 [facility] Comment on above: Performed By: #### L 501.5200, L500.2500 ####[facility] [address] [place], [address] Urea nitrogen [Mass/Vol] 32 mg/dL High 7-18 [facility] Comment on above: Performed By: #### L 501.5200, L500.2500 ####[facility] [address] [place], [address] CBC W/Diff, Automatedon 07-1 9-2024 PATH REV Reviewed Normal [facility] Comment on above: Result Comment: Abso lute lymphocytosis suggestive of low grade lympho-proliferative disorder.Clinical correlation is necessary.Macrocytic anemia.Prashanth Machado M.D. 10/31/23 AMENDED REPORT 10/31/23 1254 PATH REV previously reported as: August kathe Performed By: #### L 501.5200, L500.4100, L500.2500, L100.0100 ####[facility] [address] [place], [address] Consultation - Infectious Dx on 10-31-2023 Consultation - Infectious Dx Normal [facility] MR/CON.PCM.NEon 10-31-2023 MR/CON.PCM.NE Normal [facility] Magnesiumon 10-31-2023 Magnesium [Mass/Vol] 2.0 mg/dL Normal 1.6-2.6 [facility] Comment on above: Performed By: #### L 501.5200, L500.2500 ####[facility] [address] [place], [address] Basic Metabolic Profile (BMP )on 10-30-2023 BUN/CRE 15.4 RATIO Normal 10-20 [facility] Comment on above: Performed By: #### L 501.5200, L500.2500 ####[facility] [address] [place], [address] CA,Total 5.6 mg/dL Invalid Interpretation Code 8.5-10.1 [facility] Comment on above: Result Comment: Crit ical Result(s) Called at: 15:09:05 10/30/2023 by: CAIN Malone. Results read back by same. Performed By: #### L 501.5200, L500.2500 ####[facility] [address] [place], [address] Chloride [Moles/Vol] 109 mmol/L High 98-107 [facility] Comment on above: Performed By: #### L 501.5200, L500.2500 ####[facility] [address] [place], [address] CO2 [Moles/Vol] 16.0 mmol/L Low 21.0-32.0 [facility] Comment on above: Performed By: #### L 501.5200, L500.2500 ####[facility] [address] [place], [address] Creatinine [Mass/Vol] 1.62 mg/dL High 0.70-1.30 [facility] Comment on above: Result Comment: The validity of the calculated GFR GFRAA in patients over70 years has not been determined. Clinical correlation isessential. Performed By: #### L 501.5200, L500.2500 ####[facility] [address] [place], [address] ECRCL 43.81 ml/min Normal [facility] Comment on above: Performed By: #### L 501.5200, L500.2500 ####[facility] [address] [place], [address] EST GFR - AA 54 mL/min Low >60 [facility] Comment on above: Result Comment: Afri can [place] GFR Calc Performed By: #### L 501.5200, L500.2500 ####[facility] [address] [place], [address] GAP 17 High 5-15 [facility] Comment on above: Performed By: #### L 501.5200, L500.2500 ####[facility] [address] [place], [address] GFR/1.73 sq M.predicted among non-blacks MDRD (S/P/Bld) [Vol rate/Area] 45 mL/min/{1.73_m2} Low >60 [facility] Comment on above: Result Comment: Non- GFR Calc Performed By: #### L 501.5200, L500.2500 ####[facility] [address] [place], [address] Glucose [Mass/Vol] 172 mg/dL High 74-106 [facility] Comment on above: Result Comment: Fast ing Glucose result greater than or equal to 126 mg/dLsuggests DIABETES MELLITUS per A.D.A. criteria. Performed By: #### L 501.5200, L500.2500 ####[facility] [address] [place], [address] Potassium [Moles/Vol] 3.8 mmol/L Normal 3.5-5.1 [facility] Comment on above: Performed By: #### L 501.5200, L500.2500 ####[facility] [address] [place], [address] Sodium [Moles/Vol] 142 mmol/L Normal 136-145 [facility] Comment on above: Performed By: #### L 501.5200, L500.2500 ####[facility] [address] [place], [address] Urea nitrogen [Mass/Vol] 25 mg/dL High 7-18 [facility] Comment on above: Performed By: #### L 501.5200, L500.2500 ####[facility] [address] [place], [address] BUN/CRE 17.0 RATIO Normal 10-20 [facility] Comment on above: Order Comment: Comme nts: NPO at [place] prior to lipid panel Performed By: #### L 501.5200, L500.4100, L500.2500, L100.0100 ####[facility] [address] [place], [address] [place],Total 6.1 mg/dL Invalid Interpretation Code 8.5-10.1 [facility] Comment on above: Order Comment: Comme nts: NPO at [place] prior to lipid panel Result Comment: Crit ical Result(s) Called at: 06:30:30 10/30/2023 by:Kareen Lorenzo. Results read back by same. Performed By: #### L 501.5200, L500.4100, L500.2500, L100.0100 ####[facility] [address] [place], [address] Chloride [Moles/Vol] 112 mmol/L High 98-107 [facility] Comment on above: Order Comment: Comme nts: NPO at [place] prior to lipid panel Performed By: #### L 501.5200, L500.4100, L500.2500, L100.0100 ####[facility] [address] [place], [address] CO2 [Moles/Vol] 23.0 mmol/L Normal 21.0-32.0 [facility] Comment on above: Order Comment: Comme nts: NPO at [place] prior to lipid panel Performed By: #### L 501.5200, L500.4100, L500.2500, L100.0100 ####[facility] [address] [place], [address] Creatinine [Mass/Vol] 1.41 mg/dL High 0.70-1.30 [facility] Comment on above: Order Comment: Comme nts: NPO at [place] prior to lipid panel Result Comment: The validity of the calculated GFR GFRAA in patients over70 years has not been determined. Clinical correlation isessential. Performed By: #### L 501.5200, L500.4100, L500.2500, L100.0100 ####[facility] [address] [place], [address] ECRCL 50.33 ml/min Normal [facility] Comment on above: Order Comment: Comme nts: NPO at [place] prior to lipid panel Performed By: #### L 501.5200, L500.4100, L500.2500, L100.0100 ####[facility] [address] [place], [address] EST GFR - AA 64 mL/min Normal >60 [facility] Comment on above: Order Comment: Comme nts: NPO at [place] prior to lipid panel Result Comment: Afri can [place] GFR Calc Performed By: #### L 501.5200, L500.4100, L500.2500, L100.0100 ####[facility] [address] [place], [address] GAP 9 Normal 5-15 [facility] Comment on above: Order Comment: Comme nts: NPO at [place] prior to lipid panel Performed By: #### L 501.5200, L500.4100, L500.2500, L100.0100 ####[facility] [address] [place], [address] GFR/1.73 sq M.predicted among non-blacks MDRD (S/P/Bld) [Vol rate/Area] 53 mL/min/{1.73_m2} Low >60 [facility] Comment on above: Order Comment: Comme nts: NPO at [place] prior to lipid panel Result Comment: Non- GFR Calc Performed By: #### L 501.5200, L500.4100, L500.2500, L100.0100 ####[facility] [address] [place], [address] Glucose [Mass/Vol] 111 mg/dL High 74-106 [facility] Comment on above: Order Comment: Comme nts: NPO at [place] prior to lipid panel Result Comment: Fast ing Glucose result from 100 to 125 mg/dLsuggests IMPAIRED HOMEOSTASIS per A.D.A. criteria. Performed By: #### L 501.5200, L500.4100, L500.2500, L100.0100 ####[facility] [address] [place], [address] Potassium [Moles/Vol] 3.7 mmol/L Normal 3.5-5.1 [facility] Comment on above: Order Comment: Comme nts: NPO at [place] prior to lipid panel Performed By: #### L 501.5200, L500.4100, L500.2500, L100.0100 ####[facility] [address] [place], [address] Sodium [Moles/Vol] 144 mmol/L Normal 136-145 [facility] Comment on above: Order Comment: Comme nts: NPO at [place] prior to lipid panel Performed By: #### L 501.5200, L500.4100, L500.2500, L100.0100 ####[facility] [address] [place], [address] Urea nitrogen [Mass/Vol] 24 mg/dL High 10-29 [facility] Comment on above: Order Comment: Comme nts: NPO at [place] prior to lipid panel Performed By: #### L 501.5200, L500.4100, L500.2500, L100.0100 ####[facility] [address] [place], [address] Brain without Contraston Brain without Contrast Normal [facility] CBC W/Diff, Automatedon 10-12 PATH REV Reviewed Normal [facility] Comment on above: Result Comment: Abso lute lymphocytosis suggestive of low grade lympho-proliferative disorder.Clinical correlation is necessary.Macrocytic anemia.Clinical correlation necessary.Prashanth Machado M.D. 10/30/23 AMENDED REPORT 10/30/23 1316 PATH REV previously reported as: August Performed By: #### L 300.3900, L300.4310, L100.0100, L501.4020, L500.2500 ####[facility] [address] [place], [address] L501.2276on 10-30-2023 Ionized Calcium 3.80 mg/dL Low 4.36-5.20 [facility] Comment on above: Performed By: #### L 501.2276 ####[facility] [address] [place], [address] Lipid Profileon 10-30-2023 Cholesterol [Mass/Vol] 57 mg/dL Normal 200 [facility] Comment on above: Order Comment: Comme nts: NPO at [place] prior to lipid panel Result Comment: <200 mg/dL Desirable 200-240 mg/dL Borderline >240 mg/dL High Risk Performed By: #### L 501.5200, L500.4100, L500.2500, L100.0100 ####[facility] [address] [place], [address] Cholesterol in HDL [Mass/Vol] 38 mg/dL Low [facility] Comment on above: Order Comment: Comme nts: NPO at [place] prior to lipid panel Result Comment: The drugs N-Acetylcysteine and Metamizole may falselydepress this assay. Reference Range HDL <40 mg/dL Low HDL Cholesterol HDL >or= 60 mg/dL High HDL Cholesterol Performed By: #### L 501.5200, L500.4100, L500.2500, L100.0100 ####[facility] [address] [place], [address] Cholesterol in LDL [Mass/Vol] -2 mg/dL Low 0-130 [facility] Comment on above: Order Comment: Comme nts: NPO at [place] prior to lipid panel Performed By: #### L 501.5200, L500.4100, L500.2500, L100.0100 ####[facility] [address] [place], [address] Cholesterol in VLDL [Mass/Vol] 21 mg/dL Normal 5-40 [facility] Comment on above: Order Comment: Comme nts: NPO at [place] prior to lipid panel Performed By: #### L 501.5200, L500.4100, L500.2500, L100.0100 ####[facility] [address] [place], [address] Triglyceride [Mass/Vol] 106 mg/dL Normal [facility] Comment on above: Order Comment: Comme nts: NPO at [place] prior to lipid panel Result Comment: The drugs N-Acetylcysteine and Metamizole may falselydepress this assay.Serum Triglycerides Reference Interval Normal <150 mg/dL Borderline high 150 - 199 mg/dL High 200 - 499 mg/dL Very High > or = 500 mg/dL Performed By: #### L 501.5200, L500.4100, L500.2500, L100.0100 ####[facility] [address] [place], [address] MR/CON.PCM.NEon 10-30-2023 MR/CON.PCM.NE Normal [facility] Magnesiumon 10-30-2023 Magnesium [Mass/Vol] 1.6 mg/dL Normal 1.6-2.6 [facility] Comment on above: Performed By: #### L 501.5200, L500.2500 ####[facility] [address] [place], [address] Magnesium [Mass/Vol] 0.3 mg/dL Invalid Interpretation Code 1.6-2.6 [facility] Comment on above: Order Comment: Comme nts: NPO at [place] prior to lipid panel Result Comment: Crit ical Result(s) Called at: 06:30:30 10/30/2023 by:Kareen Lorenzo. Results read back by same. Performed By: #### L 501.5200, L500.4100, L500.2500, L100.0100 ####[facility] [address] [place], [address] Phosphoruson 10-30-2023 Phosphate [Mass/Vol] 4.9 mg/dL Normal 2.5-4.9 [facility] Comment on above: Performed By: #### L 501.2300 ####[facility] [address] [place], [address] 12 Lead EKGon 10-29-2023 12 Lead EKG Normal [facility] Basic Metabolic Profile (BMP )on 10-29-2023 BUN/CRE 18.0 RATIO Normal 10-20 [facility] Comment on above: Order Comment: 'TROP ' Serial specimen #1, #2 or #3: 1 Performed By: #### L 300.3900, L300.4310, L100.0100, L501.4020, L500.2500 ####[facility] [address] [place], [address] [place],Total 5.8 mg/dL Invalid Interpretation Code 8.5-10.1 [facility] Comment on above: Order Comment: 'TROP ' Serial specimen #1, #2 or #3: 1 Result Comment: Crit ical Result(s) Called at: 14:45:15 10/29/2023 by: Cain Gar. Results read back by same. Performed By: #### L 300.3900, L300.4310, L100.0100, L501.4020, L500.2500 ####[facility] [address] [place], [address] Chloride [Moles/Vol] 108 mmol/L High 98-107 [facility] Comment on above: Order Comment: 'TROP ' Serial specimen #1, #2 or #3: 1 Performed By: #### L 300.3900, L300.4310, L100.0100, L501.4020, L500.2500 ####[facility] [address] [place], [address] CO2 [Moles/Vol] 21.0 mmol/L Normal 21.0-32.0 [facility] Comment on above: Order Comment: 'TROP ' Serial specimen #1, #2 or #3: 1 Performed By: #### L 300.3900, L300.4310, L100.0100, L501.4020, L500.2500 ####[facility] [address] [place], [address] Creatinine [Mass/Vol] 1.72 mg/dL High 0.70-1.30 [facility] Comment on above: Order Comment: 'TROP ' Serial specimen #1, #2 or #3: 1 Result Comment: The validity of the calculated GFR GFRAA in patients over70 years has not been determined. Clinical correlation isessential. Performed By: #### L 300.3900, L300.4310, L100.0100, L501.4020, L500.2500 ####[facility] [address] [facility] [address] ECRCL 41.26 ml/min Normal [facility] Comment on above: Order Comment: 'TROP ' Serial specimen #1, #2 or #3: 1 Performed By: #### L 300.3900, L300.4310, L100.0100, L501.4020, L500.2500 ####[facility] [address] [place], [address] EST GFR - AA 51 mL/min Low >60 [facility] Comment on above: Order Comment: 'TROP ' Serial specimen #1, #2 or #3: 1 Result Comment: Afri can [place] GFR Calc Performed By: #### L 300.3900, L300.4310, L100.0100, L501.4020, L500.2500 ####[facility] [address] [place], [address] GAP 12 Normal 5-15 [facility] Comment on above: Order Comment: 'TROP ' Serial specimen #1, #2 or #3: 1 Performed By: #### L 300.3900, L300.4310, L100.0100, L501.4020, L500.2500 ####[facility] [address] [place], [address] GFR/1.73 sq M.predicted among non-blacks MDRD (S/P/Bld) [Vol rate/Area] 42 mL/min/{1.73_m2} Low >60 [facility] Comment on above: Order Comment: 'TROP ' Serial specimen #1, #2 or #3: 1 Result Comment: Non- GFR Calc Performed By: #### L 300.3900, L300.4310, L100.0100, L501.4020, L500.2500 ####[facility] [facility] [address] [place], [address] Glucose [Mass/Vol] 96 mg/dL Normal 74-106 [facility] Comment on above: Order Comment: 'TROP ' Serial specimen #1, #2 or #3: 1 Performed By: #### L 300.3900, L300.4310, L100.0100, L501.4020, L500.2500 ####[facility] [address] [place], [address] Potassium [Moles/Vol] 4.1 mmol/L Normal 3.5-5.1 [facility] Comment on above: Order Comment: 'TROP ' Serial specimen #1, #2 or #3: 1 Performed By: #### L 300.3900, L300.4310, L100.0100, L501.4020, L500.2500 ####[facility] [address] [place], [address] Sodium [Moles/Vol] 141 mmol/L Normal 136-145 [facility] Comment on above: Order Comment: 'TROP ' Serial specimen #1, #2 or #3: 1 Performed By: #### L 300.3900, L300.4310, L100.0100, L501.4020, L500.2500 ####[facility] [address] [place], [address] Urea nitrogen [Mass/Vol] 31 mg/dL High 7-18 [facility] Comment on above: Order Comment: 'TROP ' Serial specimen #1, #2 or #3: 1 Performed By: #### L 300.3900, L300.4310, L100.0100, L501.4020, L500.2500 ####[facility] [address] [place], [address] Bedside Glucoseon 10-29-2023 FINGERSTICK GLU 97 mg/dL Normal 74-106 [facility] Comment on above: Result Comment: TRACE LEON OF PATIENT CARE PER NURSING PROTOCOL Performed By: #### L 501.080 ####[facility] [address] [place], [address] CTA Head AND Neck W/ Contras ton 10-29-2023 CTA Head AND Neck W/ Contrast Normal [facility] Chest 1 Viewon 10-29-2023 Chest 1 View Normal [facility] Echo Completeon 10-29-2023 Echo Complete Normal [facility] Emergency Department Summary on 10-29-2023 Emergency Department Summary Normal [facility] H AND P Exam - Hospitaliston 10-29-2023 H&P Exam - Hospitalist Normal [facility] L501.4020on 10-29-2023 TROPONIN-I HS 33 pg/mL Normal 3.0-78.0 [facility] Comment on above: Order Comment: 'TROP ' Serial specimen #1, #2 or #3: 1 Result Comment: Plea se Note: New Test Units and Gender Specific Reference Ranges. For more information see Policy Stat Procedure [place] High Sensitivity Troponin (TNIH) and attachments. Performed By: #### L 300.3900, L300.4310, L100.0100, L501.4020, L500.2500 ####[facility] [address] [place], [address] Partial Thromboplast Timeon 10-29-2023 aPTT Coag (Bld) [Time] 25.3 s Normal 24.1-36.2 [facility] Comment on above: Performed By: #### L 300.3900, L300.4310, L100.0100, L501.4020, L500.2500 ####[facility] [address] [place], [address] Prothrombin Time w/INRon INR Coag (PPP) [Relative time] 1.4 {INR} Normal [facility] Comment on above: Performed By: #### L 300.3900, L300.4310, L100.0100, L501.4020, L500.2500 ####[facility] [address] [place], [address] PT Coag (PPP) [Time] 17.0 s High 11.7-14.9 [facility] Comment on above: Performed By: #### L 300.3900, L300.4310, L100.0100, L501.4020, L500.2500 ####[facility] [address] [place], [address] STROKE Brain/Head without Co nton 10-29-2023 STROKE Brain/Head without Cont Normal [facility] CBC W/Diff, Automatedon 10-12 PATH REV Reviewed Normal [facility] Comment on above: Result Comment: Abso lute lymphocytosis suggestive of low grade lympho-proliferative disorder.Clinical correlation is necessary.Macrocytic anemia.Prashanth Machado M.D. 10/27/23 Performed By: #### L 503.6030, L503.6550, L100.0100, L504.2610, L500.4050 ####[facility] [address] [place], [address] Comprehensive Metabolic Prof ilon 10-23-2023 Albumin [Mass/Vol] 3.3 g/dL Normal 3.2-5.0 [facility] Comment on above: Order Comment: 1 Performed By: #### L 503.6030, L503.6550, L100.0100, L504.2610, L500.4050 ####[facility] [address] [place], [address] Albumin/Globulin [Mass ratio] 1.3 {ratio} Normal 0.9-2.4 [facility] Comment on above: Order Comment: 1 Performed By: #### L 503.6030, L503.6550, L100.0100, L504.2610, L500.4050 ####[facility] [address] [place], [address] ALK P 71 U/L Normal 45-117 [facility] Comment on above: Order Comment: 1 Performed By: #### L 503.6030, L503.6550, L100.0100, L504.2610, L500.4050 ####[facility] [address] [place], [address] ALT [Catalytic activity/Vol] 19 U/L Normal 16-61 [facility] Comment on above: Order Comment: 1 Performed By: #### L 503.6030, L503.6550, L100.0100, L504.2610, L500.4050 ####[facility] [address] [place], [address] AST [Catalytic activity/Vol] 14 U/L Low 15-37 [facility] Comment on above: Order Comment: 1 Performed By: #### L 503.6030, L503.6550, L100.0100, L504.2610, L500.4050 ####[facility] [address] [place], [address] Bilirubin [Mass/Vol] 0.30 mg/dL Normal 0.20-1.00 [facility] Comment on above: Order Comment: 1 Result Comment: For patients on eltrombopag therapy, use of Dimension [place] TBIL is not recommended. Performed By: #### L 503.6030, L503.6550, L100.0100, L504.2610, L500.4050 ####[facility] [address] [place], [address] BUN/CRE 18.4 RATIO Normal 10-20 [facility] Comment on above: Order Comment: 1 Performed By: #### L 503.6030, L503.6550, L100.0100, L504.2610, L500.4050 ####[facility] [address] [place], [address] CA,Total 5.4 mg/dL Invalid Interpretation Code 8.5-10.1 [facility] Comment on above: Order Comment: 1 Result Comment: Crit ical Result(s) Called at: 13:04:08 10/23/2023 by: Sharri. Results read back by Elvie Lynn Performed By: #### L 503.6030, L503.6550, L100.0100, L504.2610, L500.4050 ####[facility] [address] [place], [address] Chloride [Moles/Vol] 110 mmol/L High 98-107 [facility] Comment on above: Order Comment: 1 Performed By: #### L 503.6030, L503.6550, L100.0100, L504.2610, L500.4050 ####[facility] [address] [place], [address] CO2 [Moles/Vol] 21.0 mmol/L Normal 21.0-32.0 [facility] Comment on above: Order Comment: 1 Performed By: #### L 503.6030, L503.6550, L100.0100, L504.2610, L500.4050 ####[facility] [address] [place], [address] Creatinine [Mass/Vol] 1.74 mg/dL High 0.70-1.30 [facility] Comment on above: Order Comment: 1 Result Comment: The validity of the calculated GFR GFRAA in patients over70 years has not been determined. Clinical correlation isessential. Performed By: #### L 503.6030, L503.6550, L100.0100, L504.2610, L500.4050 ####[facility] [address] [place], [address] ECRCL 45.20 ml/min Normal [facility] Comment on above: Order Comment: 1 Performed By: #### L 503.6030, L503.6550, L100.0100, L504.2610, L500.4050 ####[facility] [address] [place], [address] EST GFR - AA 50 mL/min Low >60 [facility] Comment on above: Order Comment: 1 Result Comment: Afri can [place] GFR Calc Performed By: #### L 503.6030, L503.6550, L100.0100, L504.2610, L500.4050 ####[facility] [address] [place], [address] GAP 10 Normal 5-15 [facility] Comment on above: Order Comment: 1 Performed By: #### L 503.6030, L503.6550, L100.0100, L504.2610, L500.4050 ####[facility] [address] [place], [address] GFR/1.73 sq M.predicted among non-blacks MDRD (S/P/Bld) [Vol rate/Area] 41 mL/min/{1.73_m2} Low >60 [facility] Comment on above: Order Comment: 1 Result Comment: Non- GFR Calc Performed By: #### L 503.6030, L503.6550, L100.0100, L504.2610, L500.4050 ####[facility] [address] [place], [address] Globulin (S) [Mass/Vol] 2.6 g/dL Normal 2.2-4.2 [facility] Comment on above: Order Comment: 1 Performed By: #### L 503.6030, L503.6550, L100.0100, L504.2610, L500.4050 ####[facility] [address] [place], [address] Glucose [Mass/Vol] 119 mg/dL High 74-106 [facility] Comment on above: Order Comment: 1 Result Comment: Fast ing Glucose result from 100 to 125 mg/dLsuggests IMPAIRED HOMEOSTASIS per A.D.A. criteria. Performed By: #### L 503.6030, L503.6550, L100.0100, L504.2610, L500.4050 ####[facility] [address] [place], [address] Potassium [Moles/Vol] 3.5 mmol/L Normal 3.5-5.1 [facility] Comment on above: Order Comment: 1 Performed By: #### L 503.6030, L503.6550, L100.0100, L504.2610, L500.4050 ####[facility] [address] [place], [address] Sodium [Moles/Vol] 141 mmol/L Normal 136-145 [facility] Comment on above: Order Comment: 1 Performed By: #### L 503.6030, L503.6550, L100.0100, L504.2610, L500.4050 ####[facility] [address] [place], [address] T PROT 5.9 g/dL Low 6.4-8.2 [facility] Comment on above: Order Comment: 1 Performed By: #### L 503.6030, L503.6550, L100.0100, L504.2610, L500.4050 ####[facility] [address] [place], [address] Urea nitrogen [Mass/Vol] 32 mg/dL High 7-18 [facility] Comment on above: Order Comment: 1 Performed By: #### L 503.6030, L503.6550, L100.0100, L504.2610, L500.4050 ####[facility] [address] [place], [address] Ferritinon 10-23-2023 Ferritin [Mass/Vol] 178 ng/mL Normal 26-388 [facility] Comment on above: Order Comment: 1 Performed By: #### L 503.6030, L503.6550, L100.0100, L504.2610, L500.4050 ####[facility] [address] [place], [address] Iron+Iron Binding Capacityon 10-23-2023 Iron [Mass/Vol] 139 ug/dL Normal 65-175 [facility] Comment on above: Order Comment: 1 Performed By: #### L 503.6030, L503.6550, L100.0100, L504.2610, L500.4050 ####[facility] [address] [place], [address] IRON SATURATION 50.9 Normal 15.0-55.0 [facility] Comment on above: Order Comment: 1 Performed By: #### L 503.6030, L503.6550, L100.0100, L504.2610, L500.4050 ####[facility] [address] [place], [address] TIBC 273 ug/dL Normal 250-450 [facility] Comment on above: Order Comment: 1 Performed By: #### L 503.6030, L503.6550, L100.0100, L504.2610, L500.4050 ####[facility] [address] [place], [address] LDHon 10-23-2023 LDH 349 U/L High 87-241 [facility] Comment on above: Order Comment: 1 Performed By: #### L 503.6030, L503.6550, L100.0100, L504.2610, L500.4050 ####[facility] [address] [place], [address] Oncology Visit Reporton 10-12 Oncology Visit Report Normal [facility] Chest PA and Lateralon 10-19 Chest PA and Lateral Normal [facility] CNPNon 09-18-2023 CNPN Telephone (GGENMN) ADINA DAVID ([id number]) 1955 M Date Time Provider Department 09/18/23 [...] 1 DOSE SUBCUTANEOUSLY ONCE EVERY MONTH - kwcppqolbbn-qzcefsnvb-vxxsg ter (TRELEGY ELLIPTA) 100-62.5-25 mcg inhalation powder [...] unspecified chronicity, uns*12/01/2022 Coronary artery disease involving nansemond indian tribe falcon*12/02/2022 Other emphysema (HCC) [J43.8] 12/02/2022 Chronic [...] Encounter Status:Closed by FIDENCIO MON on 09/19/[address] [facility] XR Chest 2 view-PA & LATon 0 [...] JAIME ATKINS MD, MD Date: 08/15/2023 17:49 [facility] Comment on above: Order Comment: Rales right [...] 05/06/2023 12:09:18 AM Ordering Provider: HAFSA JOHNSON [facility] [place] SPINE CERVICAL W/O NORMAA Omega 05-06-2023 [...] 05/05/2023 11:06:53 PM Ordering Provider: HAFSA JOHNSON [facility] [place] THORAX W/O CONTRASTon CT THORAX W/O [...] 05/05/2023 11:20:44 PM Ordering Provider: HAFSA JOHNSON [facility] [place] XR SPINE LUMBOSACRAL 2 OR 3 VIEWSon [...] 11:15:21 PM Ordering Provider: HAFSA JOHNSON Normal [facility] [place] ED Nursing Noteon 05-05-2023 ED Nursing Note Family came to nori [facility]berg stating they are taking him to another hospital Vida Owusu, MEHUL 05/05/231938 Normal [facility] ECG 12 lead (Clinic Performe d)on 02-20-2023 [facility] Work Phone: See scanned report [facility] Work Phone: CNPNon 01-21-2023 CNPN Telephone [facility] ADINA DAVID ([id number]) 1955 M Date Time Provider Department 01/21/23 NAKUL GALLEGOS [facility] During your visit today, we recorded the following information about you: Lucio Juan MA 01/21/2023 2:58 PM Signed Fyi- called patient to schedule his follow up appt. Pt declined and states he is no longer following up with [facility] providers-jj Allergies As of Date: 01/21/2023 [...] he is no longer following up with [facility] providers-jj Prescriptions as of 01/21/2023 - BABY ASPIRIN ORAL Take 81 mg by mouth once daily. - CPAP - enoxaparin (LOVENOX) 40 mg/0.4 mL Inject 0.4 mL subcutaneously every 24 hours. - ergocalciferol 50,000 unit capsule (VITAMIN D2, DRISDOL) once every month. - evolocumab (REPATHA SURECLICK) 140 mg/mL pen injector Inject 140 mg subcutaneously every 2 weeks. - lgxjhjwmvak-qqxjdzwza-fkhdw ter (TRELEGY ELLIPTA) 100-62.5-25 mcg inhalation powder [...] unspecified chronicity, uns*12/01/2022 Coronary artery disease involving nansemond indian tribe falcon*12/02/2022 Other emphysema (HCC) [J43.8] 12/02/2022 Chronic [...] Encounter Status:Closed by LUCIO JUAN on 01/21/23 [facility] Patrick 01-17-2023 [facility]N Telephone [facility] ADINA DAVID ([id number]) 1955 M Date Time Provider Department 01/17/23 ULISES RAMOS [facility] During your visit today, we [...] Medical Records [2017] Cmt: [facility] Prescriptions as of 01/17/2023 - gjvutwgwjfg-tkohsoqtr-zvpzt ter (TRELEGY ELLIPTA) 100-62.5-25 mcg inhalation powder [...] unspecified chronicity, uns*12/01/2022 Coronary artery disease involving nansemond indian tribe falcon*12/02/2022 Other emphysema (HCC) [J43.8] 12/02/2022 Chronic [...] Encounter Status:Closed by MARIELOS SCHWARTZ on 01/17/[address] [facility] CNCOon 12-30-2022 CNCO Letter Text [facility] CNPNon 12-30-2022 CNPN Telephone ([facility]CSIND) ADINA DAVID ([id number]) 1955 M Date Time Provider Department 12/30/22 JENIFER LLOYD During your visit today, we recorded the following information about you: Jenifer Lloyd LPN 12/30/2022 11:29 AM Signed Halle Dale MD, [facility] received a referral for [facility] services. Frankie is currently inpatient at [facility]. At this time we will be canceling [...] tablet by mouth daily at bedtime. - iqxmdigqhit-scbbvzhbq-wbyzm ter (TRELEGY ELLIPTA) 100-62.5-25 mcg inhalation powder [...] unspecified chronicity, uns*12/01/2022 Coronary artery disease involving nansemond indian tribe falcon*12/02/2022 Other emphysema (HCC) [J43.8] 12/02/2022 Chronic [...] Encounter Status:Closed by JENIFER LLOYD on 12/30/[address] [facility] Patrick 12-27-2022 [facility] Telephone (HCSIND) ADINA DAVID ([id number]) 1955 M Date Time Provider Department 12/27/22 [...] the following requesting call back to confirm [facility] [phone] PARTH Dawkins Lisa, LPN 12/29/2022 11:34 AM Signed Vm left at the following requesting call back to confirm [facility] [phone] Loraine Talbot LPN Allergies As of Date: [...] tablet by mouth daily at bedtime. - vxobbjxqlqt-ypmnuhapg-blinl ter (TRELEGY ELLIPTA) 100-62.5-25 mcg inhalation powder [...] unspecified chronicity, uns*12/01/2022 Coronary artery disease involving nansemond indian tribe falcon*12/02/2022 Other emphysema (HCC) [J43.8] 12/02/2022 Chronic [...] Z*12/11/2022 Vivi (more content not included)... Normal [facility] BioFire PCR Stool Pathogens (GI Panel)on 12-25-2022 Adenovirus F 40/41 Not detected Normal NOT DETECTED [facility] Comment on above: Order Comment: GI Pa yaneth for: Clostridium Difficile, Stool Culture , Ova/Parasite, Giardia/Crypto, Shiga Toxin Performed By: #### B IOGI #### [facility] [address] [place], [place] [id number] Antibiotic Normal [facility] Comment on above: Order Comment: GI Pa yaneth for: Clostridium Difficile, Stool Culture , Ova/Parasite, Giardia/Crypto, Shiga Toxin Performed By: #### B IOGI #### [facility] [address] [place] [address] Astrovirus Not detected Normal NOT DETECTED [facility] Comment on above: Order Comment: GI Pa yaneth for: Clostridium Difficile, Stool Culture , Ova/Parasite, Giardia/Crypto, Shiga Toxin Performed By: #### B IOGI #### [facility] [address] [place], [place] [id number] Bacteria identified Cx Nom (Unsp spec) < BACTERIA > Normal [facility] Comment on above: Order Comment: GI Pa yaneth for: Clostridium Difficile, Stool Culture , Ova/Parasite, Giardia/Crypto, Shiga Toxin Performed By: #### B IOGI #### [facility] [address] [place], [place] [id number] C. difficile tox A/B Not detected Normal NOT DETECTED [facility] Comment on above: Order Comment: GI Pa yaneth for: Clostridium Difficile, Stool Culture , Ova/Parasite, Giardia/Crypto, Shiga Toxin Performed By: #### B IOGI #### [address] [place], [place] [address] Campylobacter Not detected Normal NOT DETECTED [facility] Comment on above: Order Comment: GI Pa yaneth for: Clostridium Difficile, Stool Culture , Ova/Parasite, Giardia/Crypto, Shiga Toxin Performed By: #### B IOGI #### [facility] [address] [place], [place] [id number] Cryptosporidium Not detected Normal NOT DETECTED [facility] Comment on above: Order Comment: GI Pa yaneth for: Clostridium Difficile, Stool Culture , Ova/Parasite, Giardia/Crypto, Shiga Toxin Performed By: #### B IOGI #### [facility] [address] [place] [address] Cyclospora Not detected Normal NOT DETECTED [facility] Comment on above: Order Comment: GI Pa yaneth for: Clostridium Difficile, Stool Culture , Ova/Parasite, Giardia/Crypto, Shiga Toxin Performed By: #### B IOGI #### [facility] [address] [place] [address] Diar E. coli/Shig < DIARRHEAGENIC E. C TORRES / SHIGELLA > Normal [facility] Comment on above: Order Comment: GI Pa yaneth for: Clostridium Difficile, Stool Culture , Ova/Parasite, Giardia/Crypto, Shiga Toxin Performed By: #### B IOGI #### [facility] [address] [place], [place] [id number] E. coli (EAEC) Not detected Normal NOT DETECTED [facility] Comment on above: Order Comment: GI Pa yaneth for: Clostridium Difficile, Stool Culture , Ova/Parasite, Giardia/Crypto, Shiga Toxin Performed By: #### B IOGI #### [facility] [address] [place], [place] [id number] E. coli (EPEC) Not detected Normal NOT DETECTED [facility] Comment on above: Order Comment: GI Pa yaneth for: Clostridium Difficile, Stool Culture , Ova/Parasite, Giardia/Crypto, Shiga Toxin Performed By: #### B IOGI #### [facility] [address] [place], [place] [id number] E. coli (ETEC) Not detected Normal NOT DETECTED [facility] Comment on above: Order Comment: GI Pa yaneth for: Clostridium Difficile, Stool Culture , Ova/Parasite, Giardia/Crypto, Shiga Toxin Performed By: #### B IOGI #### [facility] [address] [place] [address] E. coli (STEC) Not detected Normal NOT DETECTED [facility] Comment on above: Order Comment: GI Pa yaneth for: Clostridium Difficile, Stool Culture , Ova/Parasite, Giardia/Crypto, Shiga Toxin Performed By: #### B IOGI #### [facility] [address] [place] [address] E. coli O157 N/A Normal NOT DETECTED [facility] Comment on above: Order Comment: GI Pa yaneth for: Clostridium Difficile, Stool Culture , Ova/Parasite, Giardia/Crypto, Shiga Toxin Performed By: #### B IOGI #### [facility] [address] [place] [address] E. histolytica Not detected Normal NOT DETECTED [facility] Comment on above: Order Comment: GI Pa yaneth for: Clostridium Difficile, Stool Culture , Ova/Parasite, Giardia/Crypto, Shiga Toxin Performed By: #### B IOGI #### [facility] [address] [place] [address] GI Pathogens Sum ----- GASTROINTESTIN AL PATHOGENS SUMMARY ----- Normal [facility] Comment on above: Order Comment: GI Pa yaneth for: Clostridium Difficile, Stool Culture , Ova/Parasite, Giardia/Crypto, Shiga Toxin Performed By: #### B IOGI #### [facility] [address] [place] [address] Giardia lamblia Not detected Normal NOT DETECTED [facility] Comment on above: Order Comment: GI Pa yaneth for: Clostridium Difficile, Stool Culture , Ova/Parasite, Giardia/Crypto, Shiga Toxin Performed By: #### B IOGI #### [facility] [address] [place] [address] Indiv PCR Results ----- INDIVIDUAL PCR RESULTS ----- Normal [facility] Comment on above: Order Comment: GI Pa yaneth for: Clostridium Difficile, Stool Culture , Ova/Parasite, Giardia/Crypto, Shiga Toxin Performed By: #### B IOGI #### [facility] [address] [place], [place] [id number] Norovirus GI/GII Not detected Normal NOT DETECTED [facility] Comment on above: Order Comment: GI Pa yaneth for: Clostridium Difficile, Stool Culture , Ova/Parasite, Giardia/Crypto, Shiga Toxin Performed By: #### B IOGI #### [facility] [address] [place], [place] [id number] P. shigelloides Not detected Normal NOT DETECTED [facility] Comment on above: Order Comment: GI Pa yaneth for: Clostridium Difficile, Stool Culture , Ova/Parasite, Giardia/Crypto, Shiga Toxin Performed By: #### B IOGI #### [facility] [address] [place] [address] Parasites < PARASITES > Normal [facility] Comment on above: Order Comment: GI Pa yaneth for: Clostridium Difficile, Stool Culture , Ova/Parasite, Giardia/Crypto, Shiga Toxin Performed By: #### B IOGI #### [facility] [address] [place], [place] [id number] Pathogens Detected Detected Normal NOT DETECTED [facility] Comment on above: Order Comment: GI Pa yaneth for: Clostridium Difficile, Stool Culture , Ova/Parasite, Giardia/Crypto, Shiga Toxin Performed By: #### B IOGI #### [facility] [address] [place], [place] [phone] Pathogens Detected Normal NOT DETECTED [facility] Comment on above: Order Comment: GI Pa yaneth for: Clostridium Difficile, Stool Culture , Ova/Parasite, Giardia/Crypto, Shiga Toxin Performed By: #### B IOGI #### [facility] [address] [place], [place] [id number] Rotavirus A Not detected Normal NOT DETECTED [facility] Comment on above: Order Comment: GI Pa yaneth for: Clostridium Difficile, Stool Culture , Ova/Parasite, Giardia/Crypto, Shiga Toxin Performed By: #### B IOGI #### [facility] [address] [place], [place] [phone] Salmonella Not detected Normal NOT DETECTED [facility] Comment on above: Order Comment: GI Pa yaneth for: Clostridium Difficile, Stool Culture , Ova/Parasite, Giardia/Crypto, Shiga Toxin Performed By: #### B IOGI #### [facility] [address] [place] [address] Sapovirus Not detected Normal NOT DETECTED [facility] Comment on above: Order Comment: GI Pa yaneth for: Clostridium Difficile, Stool Culture , Ova/Parasite, Giardia/Crypto, Shiga Toxin Performed By: #### B IOGI #### [facility] [address] [place] [address] Shig/E. coli (EIEC) Not detected Normal NOT DETECTED [facility] Comment on above: Order Comment: GI Pa yaneth for: Clostridium Difficile, Stool Culture , Ova/Parasite, Giardia/Crypto, Shiga Toxin Performed By: #### B IOGI #### [facility] [address] [place] [address] Vibrio Not detected Normal NOT DETECTED [facility] Comment on above: Order Comment: GI Pa yaneth for: Clostridium Difficile, Stool Culture , Ova/Parasite, Giardia/Crypto, Shiga Toxin Performed By: #### B IOGI #### [facility] [address] [place] [address] Vibrio cholerae Not detected Normal NOT DETECTED [facility] Comment on above: Order Comment: GI Pa yaneth for: Clostridium Difficile, Stool Culture , Ova/Parasite, Giardia/Crypto, Shiga Toxin Performed By: #### B IOGI #### [facility] [address] [place] [address] Viruses < VIRUSES > Normal [facility] Comment on above: Order Comment: GI Pa yaneth for: Clostridium Difficile, Stool Culture , Ova/Parasite, Giardia/Crypto, Shiga Toxin Performed By: #### B IOGI #### [facility] [address] [place] [address] Yersinia Not detected Normal NOT DETECTED [facility] Comment on above: Order Comment: GI Pa yaneth for: Clostridium Difficile, Stool Culture , Ova/Parasite, Giardia/Crypto, Shiga Toxin Performed By: #### B IOGI #### [facility] [address] [place] [address] 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 carinii), DFA SOURCE : SPUTUM Result/Comment: Not Detected Reference Range: Not Detected Test Performed by [facility], [employer] [facility], [address] [place] [address] Nhan Light M.D., Ph.D., Director of Laboratories , CLIA [id number] Performed By: #### P CDFA #### [facility] [address] [place] [address] XR Chest 1 view-Mobileon XR Chest 1 view-Mobile PORTABLE CHEST: CLINICAL INDICATION: R06.02: SHORTNESS OF BREATH [id number]: Cough TECHNIQUE: Portable AP COMPARISON: 12/20/2022 FINDINGS: [...] BISMARK BURTON MD, MD Date: 12/22/2022 06:44 [facility] .CBC Path Reviewon CBC Path Review Marked macrocytic an emia and marked leukocytosis with marked atypical absolute lymphocytosis and several smudge cells, suspicious for lymphoproliferative disorder. Myeloid left shift with some toxic changes also noted. Rule out infection. Rule out blood loss. Suggest further hematologic evaluation if clinically indicated. Normal [facility] [place] Comment on above: Result Comment: Elec tronically signed by: MAGNOLIA YANG 12.20.2022 17:10 EDT Performed By: #### C MP, TROPHS, GFR, CBC, CBCPR, LAC, PRO, DIFF, MDW ####[place] [address]#### MORPH, APTT ####[facility] [address] [place] [address] BCIDon 12-20-2022 Acinetobacter kentrell-baumanii complex Not detected Normal Not Detected [facility] ([place] Comment on above: Performed By: #### B PIETER ####Hussainsabi LaneNr[address] [place] [address] Bacteroides fragilis Not detected Normal Not Detected [facility] ([place] Comment on above: Performed By: #### B PIETER ####[facility] [address]msfrkmd[address] [place] [address] BCID Comment See Comment Normal [facility] ([place] Comment on above: Result Comment: Anti microbial [...] follow. Performed By: #### B PIETER ####[facility] Mcq[address]zx85[address] [place] [address] Barbara albicans Not detected Normal Not Detected [facility] ([place] Comment on above: Performed By: #### B PIETER ####Hussainsabi LaneOhqtaobds7586 [place] [address] Barbara auris Not detected Normal Not Detected [facility] ([place] Comment on above: Performed By: #### B PIETER ####[facility] SystemHxemtavis0119 [place] [address] Barbara glabrata Not detected Normal Not Detected [facility] ([place] Comment on above: Performed By: #### B PIETER ####[facility] Xvairuuuo7[address] [place] [address] Barbara krusei Not detected Normal Not Detected [facility] ([place] Comment on above: Performed By: #### B PIETER ####[facility] [address] [place], [place] [address] Barbara parapsilosis Not detected Normal Not Detected [facility] [place] Comment on above: Performed By: #### B PIETER ####[facility] [address] [place], [place] [address] Barbara tropicalis Not detected Normal Not Detected [facility] [place] Comment on above: Performed By: #### B PIETER ####[facility] [address] [place] [phone] Cryptococcus neoformans-gattii Not detected Normal Not Detected [facility] [place] Comment on above: Performed By: #### B PIETER ####Hussainsabi OlivarezVvcofeufx2231 [place] [address] CTX-M (ESBL) Not Applicable Normal Not Detected [facility] ([place] Comment on above: Performed By: #### B PIETER ####[facility]ain Gxxouwduh[address] [place] [phone] E. Coli Not detected Normal Not Detected [facility] ([place] Comment on above: Performed By: #### B PIETER ####[facility] Mnbaibpvt0999 [place] [phone] Enterobacter cloacae Complex Not detected Normal Not Detected [facility] [place] Comment on above: Performed By: #### B PIETER ####Hussainsabi LaneLpwuwtccs5349 [place] [phone] Enterobacterales Not detected Normal Not Detected [facility] [place] Comment on above: Performed By: #### B PIETER ####Hussainsabi LaneZslikccke6288 [place] [phone] Enterococcus faecalis Not detected Normal Not Detected [facility] [place] Comment on above: Performed By: #### B PIETER ####Hussainsabi LaneJknehkjgw5516 [place] [phone] Enterococcus faecium Not detected Normal Not Detected [facility] [place] Comment on above: Performed By: #### B PIETER ####Hussainsabi OlivarezRigptfags4289 [place] [address] Haemophilus influenzae Not detected Normal Not Detected [facility] [place] Comment on above: Performed By: #### B PIETER ####[facility] [address] [place] [phone] IMP (Carbapenemase) Not Applicable Normal Not Detected [facility] [place] Comment on above: Performed By: #### B PIETER ####[facility] [address] [place] [address] Klebsiella aerogenes Not detected Normal Not Detected [facility] [place] Comment on above: Performed By: #### B PIETER ####[facility] [address] [place] [address] Klebsiella oxytoca Not detected Normal Not Detected [facility] [place] Comment on above: Performed By: #### B PIETER ####[facility] [address] [place] [phone] Klebsiella pneumoniae group Not detected Normal Not Detected [facility] [place] Comment on above: Performed By: #### B PIETER ####[facility] [address] [place] [address] KPC (Carbapenemase) Not Applicable Normal Not Detected [facility] ([place] Comment on above: Performed By: #### B PIETER ####[facility] [address] [place] [phone] Listeria monocytogenes Not detected Normal Not Detected [facility] [place] Comment on above: Performed By: #### B PIETER ####[facility] [address] [place] [address] MCR-1 (Colistin Resistance) Not Applicable Normal Not Detected [facility] ([place] Comment on above: Performed By: #### B PIETER ####[facility] [address] [place] [address] Mec A/C Not Applicable Normal Not Detected [facility] [place] Comment on above: Performed By: #### B PIETER ####[facility] [address] [place] [address] Mec A/C-MREJ (MRSA) Not Applicable Normal Not Detected [facility] ([place] Comment on above: Performed By: #### B PIETER ####[facility] [address] [place], [place] [address] NDM (Carbapenemase) Not Applicable Normal Not Detected [facility] ([place] Comment on above: Performed By: #### B PIETER ####[facility] [address] [place], [place] [address] Neisseria meningitidis (Encapsalated) Not detected Normal Not Detected [facility] ([place] Comment on above: Performed By: #### B PIETER ####[facility] [address] [place] [phone] OXA-48 like (Carbapenemase) Not Applicable Normal Not Detected [facility] ([place] Comment on above: Performed By: #### B PIETER ####[facility]20[facility] [place] [phone] Proteus Not detected Normal Not Detected [facility] ([place] Comment on above: Performed By: #### B PIETER ####[facility] [address] [place] [phone] Pseudomonas aeruginosa Not detected Normal Not Detected [facility] ([place] Comment on above: Performed By: #### B PIETER ####[facility]2021 [place], [place] [address] S. agalactiae Org specific cx Ql (Vag fld) Not detected Normal Not Detected [facility] ([place] Comment on above: Performed By: #### B PIETER ####[facility]2021 [place] [phone] Salmonella species Not detected Normal Not Detected [facility] ([place] Comment on above: Performed By: #### B PIETER ####Hussain Hfpywmycs9805 [place] [phone] Serratia marcescens Not detected Normal Not Detected [facility] ([place] Comment on above: Performed By: #### B PIETER ####[facility]ain Xzsyppasz1210 [place] [phone] Staphylococcus Not detected Normal Not Detected [facility] ([place] Comment on above: Performed By: #### B PIETER ####Hussain OlivarezSeoojjsra0956 [place], [place] [address] Staphylococcus aureus Not detected Normal Not Detected [facility] ([place] Comment on above: Result Comment: If S taphylococcus aureus is Detected, an Infectious Disease physician consult is required on identification. Performed By: #### B PIETER ####Hussain OlivarezJcoapwpvn9148 [place], [place] [address] Staphylococcus epidermidis Not detected Normal Not Detected [facility] ([place] Comment on above: Performed By: #### B PIETER ####Hussain OlivarezHsmsonkmd8637 [place], [place] [address] Staphylococcus lugdunensis Not detected Normal Not Detected [facility] [place] Comment on above: Performed By: #### B PIETER ####H[facility] [address] [place], [place] [address] Stenotrophomonas maltophilia Not detected Normal Not Detected [facility] ([place] Comment on above: Performed By: #### B PIETER ####Hussain OlivarezFujdsakvc9328 [place], [place] [address] Streptococcus Detected Abnormal Not Detected [facility] ([place] Comment on above: Performed By: #### B PIETER ####Hussain OlivarezDtoljthxd7275 [place], [place] [address] Streptococcus pneumoniae Detected Abnormal Not Detected [facility] ([place] Comment on above: Performed By: #### B PIETER ####Hussain OlivarezOdvbkhidt3952 [place], [place] [address] Streptococcus pyogenes Not detected Normal Not Detected [facility] ([place] Comment on above: Performed By: #### B PIETER ####Hussain OlivarezBoqdinqhh4152 [place], [place] [address] Van A/B Not Applicable Normal Not Detected [facility] ([place] Comment on above: Performed By: #### B PIETER ####Hussain OlivarezXvuuglgey2840 [place], [place] [address] VIM (Carbapenemase) Not Applicable Normal Not Detected [facility] ([place] Comment on above: Performed By: #### B PIETER ####Hussain Myvgbmmoq6363 [place], [place] [address] [facility] 12-20-2022 CNPN Telephone (HCSIND) ADINA DAVID ([id number]) 1955 M Date Time Provider Department 12/20/22 HALLE DALE HCSIND During your visit today, we recorded the following information about you: Sue Raygoza LPN 12/20/2022 6:[address] Dale, Thank you for the referral for Adina to [facility] with [facility]. [...] you for the referral for Adina to [facility] with [facility]. [...] [4073] Primary Visit Diagnosis:CLL (chronic lymphocytic leukemia) ([facility]) [C91.10] Order(s):CONSULT TO [facility] [[id number]] Order #: [id number]: 1 Prescriptions as of 12/26/2022 - Doxepin (SILENOR) 3 mg tab Take 1 tablet by mouth daily at bedtime. - vxeknixdipm-ihihvtqpv-wpdfk ter (TRELEGY ELLIPTA) 100-62.5-25 mcg inhalation powder [...] *10/24/2018 Stag (more content not included)... Normal [facility] XR Chest 1 view-Mobileon XR Chest [...] RATNA LYONS MD, MD Date: 12/20/2022 06:33 [facility] .GFRon 12-19-2022 GFR Non- 30 ml/min/1.73sqm Normal [facility] ([place]) Comment on above: Result Comment: GFR [...] CBC, CBCPR, LAC, PRO, DIFF, MDW #### [facility] [address] [place] [address] #### MORPH, APTT #### [facility] [address] [place], [place] [address] GFR 36 ml/min/1.73sqm Normal [facility] ([place]) Comment on above: Result Comment: GFR [...] CBC, CBCPR, LAC, PRO, DIFF, MDW #### [place] [address] #### BOBBI, APTT #### [facility] [address] [place] [address] .MDWon 12-19-2022 Monocyte Distribution Width 46.30 High 0.00-20.00 [facility] ([place] Comment on above: Result Comment: The predictive value of MDW for identifying sepsis in patients with hematological abnormalities has not been established Performed By: #### C MP, TROPHS, GFR, CBC, CBCPR, LAC, PRO, DIFF, MDW ####[place] [address]#### BOBBI, APTT ####[place] [id number] [place] [address] .Manual Diffon 12-19-2022 Basophil %, Manual 0.0 % Normal 0.0-2.5 [facility] ([place] Comment on above: Performed By: #### C MP, TROPHS, GFR, CBC, CBCPR, LAC, PRO, DIFF, MDW ####[place] [address]#### MORPH, APTT ####[place] [address] Basophil, Abs Manual 0.0 10 3/mcL Normal 0.0-0.2 [facility] ([place] Comment on above: Performed By: #### C MP, TROPHS, GFR, CBC, CBCPR, LAC, PRO, DIFF, MDW ####[place] [address]#### MORPH, APTT ####[facility]ain Zgruewoms5654 [place], [place] [address] Eosinophil %, Manual 0.0 % Normal 0.0-7.0 [facility] ([place] Comment on above: Performed By: #### C MP, TROPHS, GFR, CBC, CBCPR, LAC, PRO, DIFF, MDW ####[place] [address]#### MORPH, APTT ####[facility] Frplpphzk[address]01 [place], [place] [address] Eosinophil, Abs Manual 0.0 10 3/mcL Normal 0.0-0.4 [facility] ([place] Comment on above: Performed By: #### C MP, TROPHS, GFR, CBC, CBCPR, LAC, PRO, DIFF, MDW ####[place] [address]#### MORPH, APTT ####[place] Jchsputhq3143 [place], [place] [address] Lymphocyte %, Manual 82.0 % High 10.0-50.0 [facility] ([place]) Comment on above: Performed By: #### C MP, TROPHS, GFR, CBC, CBCPR, LAC, PRO, DIFF, MDW ####[place] [address]#### MORPH, APTT ####[place] Snedwgpgw9167 [place], [place] [address] Lymphocyte, Abs Manual 42.7 10 3/mcL High 0.8-3.9 [facility] ([place] Comment on above: Performed By: #### C MP, TROPHS, GFR, CBC, CBCPR, LAC, PRO, DIFF, MDW ####[place] [address]#### MORPH, APTT ####Hussainsabi LaneAqvazjhru2802 [place], [place] [address] Monocyte %, Manual 2.0 % Normal 1.7-13.0 [facility] ([place]) Comment on above: Performed By: #### C MP, TROPHS, GFR, CBC, CBCPR, LAC, PRO, DIFF, MDW ####[place] [address]#### MORPH, APTT ####[place] Lkhklcbwg5347 [place], [place] [address] Monocyte, Abs Manual 1.1 10 3/mcL High 0.2-1.0 [facility] ([place] Comment on above: Performed By: #### C MP, TROPHS, GFR, CBC, CBCPR, LAC, PRO, DIFF, MDW ####[place] [address]#### MORPH, APTT ####[facility] SystemDbbxqzeib9883 [place], [place] [address] Neutrophil %, Manual 16.0 % Low 37.0-80.0 [facility] ([place] Comment on above: Performed By: #### C MP, TROPHS, GFR, CBC, CBCPR, LAC, PRO, DIFF, MDW ####[place] [address]#### MORPH, APTT ####[facility] SystemUnqvplljx5011 [place], [place] [address] Neutrophil, Abs Manual 8.3 10 3/mcL High 2.9-6.2 [facility] ([place] Comment on above: Performed By: #### C MP, TROPHS, GFR, CBC, CBCPR, LAC, PRO, DIFF, MDW ####[place] [address]#### MORPH, APTT ####[facility] SystemKdruapath0130 [place], [place] [address] Nucleated RBC 0.0 /100 WBC Normal [facility] ([place] Comment on above: Performed By: #### C MP, TROPHS, GFR, CBC, CBCPR, LAC, PRO, DIFF, MDW ####[place] [address]#### MORPH, APTT ####[facility] [address] [place] [address] .Morphon 12-19-2022 Hypochrom 1+ Normal [facility] ([place] Comment on above: Performed By: #### C MP, TROPHS, GFR, CBC, CBCPR, LAC, PRO, DIFF, MDW ####[place] [address]#### MORPH, APTT ####[facility] SystemOmxaecstf13[address] [place] [address] Macrocytosis 1+ Normal [facility] ([place] Comment on above: Performed By: #### C MP, TROPHS, GFR, CBC, CBCPR, LAC, PRO, DIFF, MDW ####[place] [address]#### MORPH, APTT ####[facility] [place] [address] Platelet Estimate Normal Normal [facility] ([place] Comment on above: Performed By: #### C MP, TROPHS, GFR, CBC, CBCPR, LAC, PRO, DIFF, MDW ####[place] [address]#### MORPH, APTT ####[place] [address] Smudge Cells 1+ Normal [facility] ([place] Comment on above: Performed By: #### C MP, TROPHS, GFR, CBC, CBCPR, LAC, PRO, DIFF, MDW ####[place] [address]#### MORPH, APTT ####[facility] SystemVzfpejqur1113 [place] [address] .Urinalysis Microscopic (AO) on 12-19-2022 UA Amorphus 1+ /hpf Normal [facility] ([place] Comment on above: Performed By: #### U A, UAMICAO #### [facility] [address] [place] [address] UA Coarse Granular Casts 0-5 Abnormal [facility] ([place] Comment on above: Performed By: #### U A, UAMICAO #### [facility] [address] [place], [place] [address] UA RBC None Seen Normal None Seen [facility] ([place] Comment on above: Performed By: #### U A, UAMICAO #### [facility] [address] [place], [place] [address] UA Squam Epithelial 0-5 Abnormal None Seen [facility] ([place] Comment on above: Performed By: #### U A, UAMICAO #### [facility] [address] [place], [place] [address] UA WBC None Seen Normal None Seen [facility] ([place] Comment on above: Performed By: #### U A, UAMICAO #### [facility] [address] [place], [place] [address] APTTon 12-19-2022 aPTT Coag (Bld) [Time] 25.2 s Normal 25.0-35.0 [facility] ([place] Comment on above: Result Comment: For Heparin anticoagulation therapy, the recommended therapeutic range is: 50.6-87.4 seconds. Patients on heparin therapy may have an extreme result. Performed By: #### C MP, TROPHS, GFR, CBC, CBCPR, LAC, PRO, DIFF, MDW #### [place] [address] #### MORPH, APTT #### [facility] [address] [place] [address] Heparin dose (APTT) LMW Heparin Normal [facility] ([place] Comment on above: Performed By: #### C MP, TROPHS, GFR, CBC, CBCPR, LAC, PRO, DIFF, MDW #### [place] [address] #### MORPH, APTT #### [facility] [address] [place] [address] CBCon 12-19-2022 Erythrocyte distribution width (RBC) [Ratio] 17.6 % High 11.5-14.5 [facility] ([place] Comment on above: Performed By: #### C MP, TROPHS, GFR, CBC, CBCPR, LAC, PRO, DIFF, MDW #### [place] [address] #### MORPH, APTT #### [facility] [address] [place], [place] [address] Hematocrit (Bld) [Volume fraction] 24.3 % Low 42.0-52.0 [facility] ([place] Comment on above: Performed By: #### C MP, TROPHS, GFR, CBC, CBCPR, LAC, PRO, DIFF, MDW #### [place] [address] #### MORPH, APTT #### [facility] [address] [place], [place] [address] Hgb 7.3 G/dL Low 14.0-18.0 [facility] ([place] Comment on above: Performed By: #### C MP, TROPHS, GFR, CBC, CBCPR, LAC, PRO, DIFF, MDW #### [place] [address] #### MORPH, APTT #### [facility] [address] [place], [place] [address] MCH (RBC) [Entitic mass] 33.3 pg High 27.0-31.2 [facility] ([place] Comment on above: Performed By: #### C MP, TROPHS, GFR, CBC, CBCPR, LAC, PRO, DIFF, MDW #### [place] [address] #### MORPH, APTT #### [facility] [address] [place], [place] [address] MCHC 30.2 G/dL Low 31.8-35.4 [facility] ([place] Comment on above: Performed By: #### C MP, TROPHS, GFR, CBC, CBCPR, LAC, PRO, DIFF, MDW #### [place] [address] #### MORPH, APTT #### [facility] [address] [place], [place] [address] MCV (RBC) [Entitic vol] 110.1 fL High 80.0-94.0 [facility] ([place] Comment on above: Performed By: #### C MP, TROPHS, GFR, CBC, CBCPR, LAC, PRO, DIFF, MDW #### [place] [address] #### MORPH, APTT #### [facility] [address] [place], [place] [address] Platelet 377 10 3/mcL Normal 130-400 [facility] ([place] Comment on above: Performed By: #### C MP, TROPHS, GFR, CBC, CBCPR, LAC, PRO, DIFF, W #### [place] [address] #### MORPH, APTT #### [facility] [address] [place], [place] [address] Platelet mean volume (Bld) [Entitic vol] 8.6 fL Normal 7.4-10.4 [facility] ([place] Comment on above: Performed By: #### C MP, TROPHS, GFR, CBC, CBCPR, LAC, PRO, DIFF, MDW #### [place] [address] #### MORPH, APTT #### [facility] [address] [place], [place] [address] RBC 2.21 10 6/mcL Low 4.04-6.13 [facility] ([place] Comment on above: Performed By: #### C MP, TROPHS, GFR, CBC, CBCPR, LAC, PRO, DIFF, W #### [place] [address] #### MORPH, APTT #### [facility] [address] [place], [place] [address] WBC 52.1 10 3/mcL Critically abnormal 4.6-10.8 [facility] ([place] Comment on above: Performed By: #### C MP, TROPHS, GFR, CBC, CBCPR, LAC, PRO, DIFF, MDW #### [place] [address] #### MORPH, APTT #### [facility] [address] [place], [place] [address] CMPon 12-19-2022 Albumin Level 2.4 G/dL Low 3.4-4.8 [facility] ([place]) Comment on above: Performed By: #### C MP, TROPHS, GFR, CBC, CBCPR, LAC, PRO, DIFF, MDW #### [place] [address] #### MORPH, APTT #### [facility] [address] [place], [place] [address] Albumin/Globulin [Mass ratio] 0.7 {ratio} Low 1.1-2.5 [facility] ([place] Comment on above: Performed By: #### C MP, TROPHS, GFR, CBC, CBCPR, LAC, PRO, DIFF, MDW #### [place] [address] #### MORPH, APTT #### [facility] [address] [place], [place] [address] ALP [Catalytic activity/Vol] 144 U/L High 40-135 [facility] ([place] Comment on above: Performed By: #### C MP, TROPHS, GFR, CBC, CBCPR, LAC, PRO, DIFF, MDW #### [place] [address] #### MORPH, APTT #### [facility] [address] [place], [place] [address] ALT [Catalytic activity/Vol] 45 U/L Normal 16-63 [facility] ([place] Comment on above: Performed By: #### C MP, TROPHS, GFR, CBC, CBCPR, LAC, PRO, DIFF, MDW #### [place] [address] #### MORPH, APTT #### [facility] [address] [place], [place] [address] AST [Catalytic activity/Vol] 23 U/L Normal 10-40 [facility] ([place] Comment on above: Performed By: #### C MP, TROPHS, GFR, CBC, CBCPR, LAC, PRO, DIFF, MDW #### [place] [address] #### MORPH, APTT #### [facility] [address] [place], [place] [address] Bili Total 0.7 mg/dL Normal 0.2-1.0 [facility] ([place] Comment on above: Result Comment: Use of this assay is not recommended for patients undergoing treatment with eltrombopag due to the potential for falsely elevated results. Performed By: #### C MP, TROPHS, GFR, CBC, CBCPR, LAC, PRO, DIFF, MDW #### [place] [address] #### MORPH, APTT #### [facility] [address] [place], [place] [address] BUN/Creatinine Ratio 13 ratio Normal 7-27 [facility] ([place]) Comment on above: Performed By: #### C MP, TROPHS, GFR, CBC, CBCPR, LAC, PRO, DIFF, MDW #### [place] [address] #### MORPH, APTT #### [facility] [address] [place], [place] [address] Calcium [Mass/Vol] 8.6 mg/dL Normal 8.4-10.2 [facility] ([place]) Comment on above: Performed By: #### C MP, TROPHS, GFR, CBC, CBCPR, LAC, PRO, DIFF, MDW #### [place] [address] #### MORPH, APTT #### [facility] [address] [place], [place] [address] Chloride [Moles/Vol] 98 mmol/L Normal 98-107 [facility] ([place] Comment on above: Performed By: #### C MP, TROPHS, GFR, CBC, CBCPR, LAC, PRO, DIFF, MDW #### [place] [address] #### MORPH, APTT #### [facility] [address] [place], [place] [address] CO2 [Moles/Vol] 18 mmol/L Low 23-31 [facility] ([place] Comment on above: Performed By: #### C MP, TROPHS, GFR, CBC, CBCPR, LAC, PRO, DIFF, MDW #### [place] [address] #### MORPH, APTT #### [facility] [address] [place], [place] [address] Creatinine [Mass/Vol] 2.22 mg/dL High 0.70-1.30 [facility] ([place] Comment on above: Performed By: #### C MP, TROPHS, GFR, CBC, CBCPR, LAC, PRO, DIFF, W #### [place] [address] #### MORPH, APTT #### [facility] [address] [place], [place] [address] Electrolyte Balance 14.0 mEq/L Normal 4.0-15.0 [facility] ([place]) Comment on above: Performed By: #### C MP, TROPHS, GFR, CBC, CBCPR, LAC, PRO, DIFF, W #### [place] [address] #### MORPH, APTT #### [facility] [address] [place], [place] [address] Globulin 3.6 G/dL Normal [facility] ([place] Comment on above: Performed By: #### C MP, TROPHS, GFR, CBC, CBCPR, LAC, PRO, DIFF, MDW #### [place] [address] #### MORPH, APTT #### [facility] [address] [place], [place] [address] Glucose [Mass/Vol] 151 mg/dL High 80-115 [facility] ([place] Comment on above: Performed By: #### C MP, TROPHS, GFR, CBC, CBCPR, LAC, PRO, DIFF, MDW #### [place] [address] #### MORPH, APTT #### [facility] [address] [place], [place] [address] Potassium [Moles/Vol] 4.4 mmol/L Normal 3.5-5.1 [facility] ([place] Comment on above: Performed By: #### C MP, TROPHS, GFR, CBC, CBCPR, LAC, PRO, DIFF, MDW #### [place] [address] #### MORPH, APTT #### [facility] [address] [place], [place] [address] Sodium [Moles/Vol] 130 mmol/L Low 136-145 [facility] ([place] Comment on above: Performed By: #### C MP, TROPHS, GFR, CBC, CBCPR, LAC, PRO, DIFF, PADMINI #### [place] [address] #### MORPH, APTT #### [facility] [address] [place], [place] [address] Total Protein 6.0 G/dL Low 6.4-8.2 [facility] ([place] Comment on above: Performed By: #### C MP, TROPHS, GFR, CBC, CBCPR, LAC, PRO, DIFF, PADMINI #### [place] [address] #### MORPH, APTT #### [facility] [address] [place], [place] [address] Urea nitrogen [Mass/Vol] 28 mg/dL High 7-18 [facility] ([place] Comment on above: Performed By: #### C MP, TROPHS, GFR, CBC, CBCPR, LAC, PRO, DIFF, W #### [place] [address] #### MORPH, APTT #### [facility] [address] [place], [place] [address] [id number] 12-19-2022 SARS-CoV-2 (COVID-19) RNA MYA+probe Ql (Unsp spec) Negative Normal Negative [facility] ([place]) Comment on above: Performed By: #### Ira SHANTEL COVMarco9 ####[address] [place], [place] [address] SARS-CoV-2 (COVID-19) RNA MYA+probe Ql (Unsp spec) Normal [facility] ([place]) Comment on above: Result Comment: Nega [...] complexity tests. COVID-19 Int Performed By: #### Iar SHANTEL COVD19 ####[address] [place], [place] [address] CT HEAD OR BRAIN W/O CONTRAS Ton [...] Date: 12/19/2022 1:15:57 PM [facility] CERVICAL W/O CONTRA STon 12-19-2022 [...] 12/19/2022 1:17:30 PM Ordering Provider: SAM RICO [facility] CT THORAX W/O CONTRASTon CT THORAX W/O [...] SOB FINDINGS: Subcentimeter tiny thyroid lobe nodules. 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 The test is intended for use as an aid in the differential diagnosis of influenza A virus, influenza B virus, and RSV in humans and is not intended to detect influenza C. Performed By: #### F SHANTEL COVD19 ####[address] [place], [place] [address] Flu B PCR (AO) Negative Normal Negative [facility] ([place]) Comment on above: Result Comment: Posi tive [...] virus (RSV) nucleic acid in nasopharyngeal swab (CUSTOMER GREETER) specimens from patients with signs and symptoms of respiratory infection in conjunction with clinical and laboratory findings. The test is intended for use as an aid in the differential diagnosis of influenza A virus, influenza B virus, and RSV in humans and is not intended to detect influenza C. Performed By: #### F SHANTEL, COVD19 ####[address] [place], [place] [address] RSV PCR (AO) Negative Normal Negative [facility] ([place]) Comment on above: Result Comment: Posi tive [...] REPEAT COLLECTION AND TESTING IS RECOMMENDED. The Hipscan Flu A/B & RSV Assay is a real-time polymerase chain reaction (PCR) based qualitative in vitro diagnostic test for the direct detection and differentiation of influenza A virus, influenza B virus, and respiratory syncytial virus (RSV) nucleic acid in nasopharyngeal swab (CUSTOMER GREETER) specimens from patients with signs and symptoms of respiratory infection in conjunction with clinical and laboratory findings. The test is intended for use as an aid in the differential diagnosis of influenza A virus, influenza B virus, and RSV in humans and is not intended to detect influenza C. Performed By: #### F LURSV, COVD19 ####[address] [place] [address] LACon 12-19-2022 Lactic Acid Lvl 1.5 mmol/L Normal 0.4-2.0 [facility] ([place]) Comment on above: Order Comment: Order ed secondary to Lactic Acid result greater than or equal to 2.0 Performed By: #### L AC ####[place] [address] Lactic Acid Lvl 3.4 mmol/L High 0.4-2.0 [facility] ([place]) Comment on above: Performed By: #### C MP, TROPHS, GFR, CBC, CBCPR, LAC, PRO, DIFF, MDW ####[place] [address]#### MORPH, APTT ####[address] [place] [address] Leukodepleted Red Cells Rele asedon 12-19-2022 Product Code E0336 [facility] Comment on above: Performed By: #### R LRC #### [facility] [address] [place] [address] Rel By DG [facility] Comment on above: Performed By: #### R LRC #### [facility] [address] [place] [address] Rel Date 12/19/2022 [facility] Comment on above: Performed By: #### R LRC #### [facility] [address] [place] [address] Rel Time 2115 [facility] Comment on above: Performed By: #### R LRC #### [facility] [address] [place] [address] Rel To DB [facility] Comment on above: Performed By: #### R LRC #### [facility] [address] [place] [address] [id number] [facility] Comment on above: Performed By: #### R LRC #### [facility] [address] [place] [address] PROon 12-19-2022 PT Coag (PPP) [Time] 20.4 s High 9.0-14.2 [facility] ([place]) Comment on above: Performed By: #### C MP, TROPHS, GFR, CBC, CBCPR, LAC, PRO, DIFF, MDW #### [facility] [address] [place] [address] #### MORPH, APTT #### [facility] [address] [place], [place] [address] PT International Ratio 1.8 [facility] ([place]) Comment on above: Result Comment: The [place] [employer] (CHEST, 1992, 102:312S-25S) recommended therapeutic range for oral anticoagulant therapy is: LOW RISK: Prophylaxis of venous thrombosis INR: 2.0-3.0 Treatment of pulmonary embolism 2.0-3.0 Prevention of systemic embolism 2.0-3.0 HIGH RISK: Mechanical prosthetic valves 2.5-3.5 Performed By: #### C MP, TROPHS, GFR, CBC, CBCPR, LAC, PRO, DIFF, MDW #### [place] [address] #### MORPH, APTT #### [facility] [address] [place], [place] [address] TROPHSon 12-19-2022 Troponin I High Sensitivity 428.3 ng/L High 0.0-76.2 [facility] ([place]) Comment on above: Performed By: #### T ROPHS ####[place] [address] Troponin I High Sensitivity 144.9 ng/L High 0.0-76.2 [facility] ([place]) Comment on above: Performed By: #### C MP, TROPHS, GFR, CBC, CBCPR, LAC, PRO, DIFF, MDW #### [place] [address] #### MORPH, APTT #### [facility] [address] [place], [place] [address] UAon 12-19-2022 Color (U) Yellow Normal [facility] ([place]) Comment on above: Performed By: #### U A, UAMICAO #### [facility] [address] [place], [place] [address] Glucose (U) [Mass/Vol] Negative Normal Negative [facility] ([place]) Comment on above: Performed By: #### U A, UAMICAO #### [facility] [address] [place], [place] [address] Ketones Ql (U) Negative Normal Negative [facility] ([place]) Comment on above: Performed By: #### U A, UAMICAO #### [facility] [address] [place], [place] [address] UA Appear Slightly Cloudy Abnormal Clear [facility] ([place]) Comment on above: Performed By: #### U A, UAMICAO #### [facility] [address] [place], [place] [address] UA Blood Negative Normal Negative [facility] ([place]) Comment on above: Performed By: #### U A, UAMICAO #### [facility] [address] [place], [place] [address] UA Leuk Est Negative Normal Negative [facility] ([place] Comment on above: Performed By: #### U A, UAMICAO #### [facility] [address] [place], [place] [address] UA Nitrite Negative Normal Negative [facility] ([place] Comment on above: Performed By: #### U A, UAMICAO #### [facility] [address] [place], [place] [address] UA pH 5.5 Normal 5.0 - 8.0 [facility] ([place] Comment on above: Performed By: #### U A, UAMICAO #### [facility] [address] [place] [id number] UA Protein 100 mg/dL Abnormal Negative [facility] ([place] Comment on above: Performed By: #### U A, UAMICAO #### [facility] [address] [place] [id number] UA Spec Grav 1.015 Normal 1.015-1.025 [facility] ([place] Comment on above: Performed By: #### U A, UAMICAO #### [facility] [address] [place] [id number] UA Specimen Type Catheter Normal [facility] ([place] Comment on above: Performed By: #### U A, UAMICAO #### [facility] [address] [place], [place] [address] UA Urobilinogen 0.2 E.U./dL Normal 0.2-1.0 [facility] ([place] Comment on above: Performed By: #### U A, UAMICAO #### [facility] [address] [place] [id number] Urobilinogen (U) [Mass/Vol] Negative Normal Negative [facility] ([place] Comment on above: Performed By: #### U A, UAMICAO #### [facility] [address] [place] [phone] CNOVon 12-13-2022 [facility] Office Visit (PULU ) ADINA DAVID ([id number]) 1955 M Date Time Provider Department 12/13/22 10:30 AM NAKUL GALLEGOS [facility] During your visit today, we recorded the following information about you: Temperature Pulse Respiration Blood pressure 96.7 degrees 107/minute 16/minute 134/76 Height 1.778 m Nakul Gallegos MD 12/13/2022 12:59 PM Signed [facility] DEPARTMENT OF PULMONARY MEDICINE Date: December 13, 2022 Patient Name: Adina David Adina David is a 67 year old yr old male, presents to the [facility] [place] for evaluation of CIRA and insomnia. Patient [...] for internal providers or letter via the [employer] for external providers. Patient Entered Questionnaires: PROMIS Global Health - (T-Scores - the mean of general population = 50. Five points is a clinically meaningful difference.) 05/31/2022 05/31/2022 12/05/2021 Physical T-Score 29.6 29.6 34.9 Mental T-Score 36.3 36.3 - Modified Medical Research [place] Dyspnea Scale (MMRC) I am too breathless to leave the house or I am breathless when dressing 4 Daily cough: Yes Daily Sputum: Yes IMMUNIZATIONS: Immunization History Administered Date(s) Administered COVID-19 original vaccine, age 12+ yr, monovalent ([employer]) 07/24/2021 COVID-19 original vaccine, [...] live (ZOSTAVAX (more content not included)... Normal [facility] ADINA DAVID ([id number]) 1955 Date Time Provider Department 12/12/22 ULISES RAMOS [facility] During your visit today, we recorded the following information about you: Allergies As of Date: 12/12/2022 Noted Allergy Reaction DOXYCYCLINE 07/17/2021 5 - Intolerance Comments: Rash, diarrhea PENICILLIN 02/22/2017 4 - Hives PENICILLIN V POTASSIUM 12/20/2021 14 - Other: See Comments Date Reviewed: 12/05/2022 Reviewed by: Amy Bach, RN - Fully Assessed Prescriptions as of 12/12/2022 - cdfqbsehaot-gtuqfhddz-oqrky ter (TRELEGY ELLIPTA) 100-62.5-25 mcg inhalation powder [...] unspecified chronicity, uns*12/01/2022 Coronary artery disease involving nansemond indian tribe falcon*12/02/2022 Other emphysema (HCC) [J43.8] 12/02/2022 Chronic [...] Status:Closed by DARRELL DOUGLAS on 12/12/22 Normal [facility] Basic metabolic 2000 panelon 12-11-2022 Anion gap [Moles/Vol] 15 mmol/L Normal 9-18 [facility] Comment on above: Order Comment: Speci men Type: BLOOD SPECIMENOrdering Facility: [facility] Address: [address] [place] [address] Performed By: #### 1 9123-9, 37170-3 ####[facility] LABCLIA [id number] [place] [address] [place] Calcium [Mass/Vol] 10.4 mg/dL High 8.5-10.2 [facility] Comment on above: Order Comment: Speci men Type: BLOOD SPECIMENOrdering Facility: [facility] Address: [address] [place] [address] Performed By: #### 1 [address]1239, 42221-4 ####[facility] LABCLIA [id number] [place] [address] [place] Chloride [Moles/Vol] 102 mmol/L Normal 97-105 [facility] Comment on above: Order Comment: Speci men Type: BLOOD SPECIMENOrdering Facility: [facility] Address: [address] [place] [address] Performed By: #### 1 9123-9, 95043-5 ####[facility] LABCLIA [id number] [place] [address] [place] CO2 [Moles/Vol] 20 mmol/L Low 22-30 [facility] Comment on above: Order Comment: Speci men Type: BLOOD SPECIMENOrdering Facility: [facility] Address: [address] [place] [address] Performed By: #### 1 9123-9, 65285-2 ####[facility] LABCLIA [id number] [address] Creatinine [Mass/Vol] 2.33 mg/dL High 0.73-1.22 [facility] Comment on above: Order Comment: Speci men Type: BLOOD SPECIMENOrdering Facility: [facility] Address: [address] [place] [address] Performed By: #### 1 9123-9, 53728-1 ####[facility] LABIA [id number] [address] Creatinine and Glomerular filtration rate.predicted panel (S/P/Bld) 30 mL/min/1.73m??? Low >=60 [facility] Comment on above: Order Comment: Speci men Type: BLOOD SPECIMENOrdering Facility: [facility] Address: [address] [place] [address] Result Comment: Mady mated Glomerular Filtration Rate [...] actual GFR. Performed By: #### 1 9123-9, 47981-4 ####[facility] LABCLIA [id number] [place] [address] [place] Glucose [Mass/Vol] 107 mg/dL High 74-99 [facility] Comment on above: Order Comment: Speci men Type: BLOOD SPECIMENOrdering Facility: [facility] Address: [address] [place], [place] [id number] Result Comment: The [place] Diabetes Association (ADA) provides guidance for cutoff [...] Standards of Medical Care in Diabetes 2016, [place] [employer]. Diabetes Care. 2016.39(Suppl 1). Performed By: #### 1 9123-9, 14423-1 ####[facility] LABCLIA [id number] [place] [address] [place] Potassium [Moles/Vol] 4.6 mmol/L Normal 3.7-5.1 [facility] Comment on above: Order Comment: Speci men Type: BLOOD SPECIMENOrdering Facility: [facility] Address: [address] [place], [place] [id number] Performed By: #### 1 9123-9, ####[facility] LABIA [id number] [place] [address] [place] Sodium [Moles/Vol] 137 mmol/L Normal 136-144 [facility] Comment on above: Order Comment: Speci men Type: BLOOD SPECIMENOrdering Facility: [facility] Address: [address] [place], [place] [id number] Performed By: #### 1 9123, ####[facility] LABCLIA [id number] [place] [address] [place] Urea nitrogen [Mass/Vol] 45 mg/dL High 9-24 [facility] Comment on above: Order Comment: Speci men Type: BLOOD SPECIMENOrdering Facility: [facility] Address: [address] [address] Performed By: #### 1 9123-9, 81752-3 ####[facility] LABIA [id number] [address] [place] CBC panel Auto (Bld)on 12-11 Erythrocyte distribution width (RBC) [Ratio] 17.2 % High 11.5-15.0 [facility] Comment on above: Order Comment: Speci men Type: BLOOD SPECIMENOrdering Facility: [facility] Address: [address] [place] [address] Performed By: #### 5 8410-2 ####[facility] LABIA [id number] [address] [place] Hematocrit (Bld) [Volume fraction] 28.3 % Low 39.0-51.0 [facility] Comment on above: Order Comment: Speci men Type: BLOOD SPECIMENOrdering Facility: [facility] Address: [address] [place] [address] Performed By: #### 5 8410-2 ####[facility] LABIA [id number] [address] [place] Hemoglobin (Bld) [Mass/Vol] 8.4 g/dL Low 13.0-17.0 [facility] Comment on above: Order Comment: Speci men Type: BLOOD SPECIMENOrdering Facility: [facility] Address: [address] [place] [address] Performed By: #### 5 8410-2 ####[facility] LABIA [id number] [address] [place] MCH (RBC) [Entitic mass] 33.3 pg Normal 26.0-34.0 [facility] Comment on above: Order Comment: Speci men Type: BLOOD SPECIMENOrdering Facility: [facility] Address: [address] [place] [address] Performed By: #### 5 8410-2 ####[facility] LABIA [id number] [address] [facility] MCHC (RBC) [Mass/Vol] 29.7 g/dL Low 30.5-36.0 [facility] Comment on above: Order Comment: Speci men Type: BLOOD SPECIMENOrdering Facility: [facility] Address: [address] [place] [address] Performed By: #### 5 8410-2 ####[facility] LABIA [id number] [place] [address] [place] MCV (RBC) [Entitic vol] 112.3 fL High 80.0-100.0 [facility] Comment on above: Order Comment: Speci men Type: BLOOD SPECIMENOrdering Facility: [facility] Address: [address] [place] [address] Performed By: #### 5 8410-2 ####[facility] [id number] [place] [address] [place] Nucleated RBC (Bld) [#/Vol] 10*3/uL Normal <0.01 [facility] Comment on above: Order Comment: Speci men Type: BLOOD SPECIMENOrdering Facility: [facility] Address: [address] [place] [address] Performed By: #### 5 8410-2 ####[facility] LABIA [id number] [address] [place] Platelet mean volume (Bld) [Entitic vol] 9.5 fL Normal 9.0-12.7 [facility] Comment on above: Order Comment: Speci men Type: BLOOD SPECIMENOrdering Facility: [facility] Address: [address] [place] [address] Performed By: #### 5 8410-2 ####[facility] [id number] [place] [id number] [place] Platelets (Bld) [#/Vol] 423 10*3/uL High 150-400 [facility] Comment on above: Order Comment: Speci men Type: BLOOD SPECIMENOrdering Facility: [facility] Address: [address] [place] [address] Performed By: #### 5 8410-2 ####[facility] LABCLIA [id number] [place] [address] [place] RBC (Bld) [#/Vol] 2.52 10*6/uL Low 4.20-6.00 [facility] Comment on above: Order Comment: Speci men Type: BLOOD SPECIMENOrdering Facility: [facility] Address: [address] [place] [address] Performed By: #### 5 8410-2 ####[facility] LABCLIA [id number] [place] [address] [place] WBC (Bld) [#/Vol] 37.75 10*3/uL High 3.70-11.00 [facility] Comment on above: Order Comment: Speci men Type: BLOOD SPECIMENOrdering Facility: [facility] Address: [address] [place] [address] Performed By: #### 5 8410-2 ####[facility] LABCLIA [id number] [place] [address] [place] [facility] CNDSon 12-11-2022 CNDS HNO ID: [id number] Author: Carole Pascal MD Service: General Internal [...] Yes) Active Problems: 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 Antic (more content not included)... Normal [facility] CONSULT PROGon 12-11-2022 CONSULT PROG HNO ID: [id number] Author: Yolette Grajeda APRN.ASSISTANT WINEMAKER Service: Vascular Medicine Author Type: Nurse Practitioner [...] December 11, 2022 TIME: 12:07 PM pager: [phone] . Normal [facility] Magnesium SerPl-mCncon 12-11 Magnesium [Mass/Vol] 1.5 mg/dL Low 1.7-2.3 [facility] Comment on above: Order Comment: Kaylee christianson Type: BLOOD SPECIMENOrdering Facility: [facility] Address: [address] [place] [address] Performed By: #### 1 9123-9, 69886-6 ####[facility] LABCLIA [id number] [address] THERAPY NTon 12-11-2022 THERAPY NT HNO ID: [id number] Author: Eileen Maldonado, PT, DPT Service: Physical Therapy Author Type: Physical Therapist Type: Therapy (PT/OT/Speech/Resp) Filed: 12/11/2022 9:06 AM Note Text: PHYSICAL THERAPY COMMUNICATION NOTE SERVICE DATE: 12/11/2022 SERVICE TIME: 06 ROOM: [place] [address] Physical therapy consult received. Chart reviewed. No [...] December 11, 2022 TIME: 9:06 AM Normal [facility] TYPE + SCREENon 12-11-2022 ABO B Normal [facility] Comment on above: Order Comment: Speci men Type: BLOOD SPECIMENOrdering Facility: [facility] Address: [address] [address] Performed By: #### T SCR ####CC MAIN BLOOD BANKCLIA [id number] [address] [place] [facility] HISTORICAL AB SCR STATUS Negative Normal [facility] Comment on above: Order Comment: Speci men Type: BLOOD SPECIMENOrdering Facility: [facility] Address: [address] [address] Performed By: #### T SCR ####CC MAIN BLOOD BANKCLIA [id number] [place] [address] [place] Rh Nom (Bld) Positive Normal [facility] Comment on above: Order Comment: Speci men Type: BLOOD SPECIMENOrdering Facility: [facility] Address: [address] [place] [address] Performed By: #### T SCR ####CC MAIN BLOOD BANKCLIA [id number] [address] [place] TYPE AND SCREEN EXPIRATION 12/14/2022 23:59 Normal [facility] Comment on above: Order Comment: Speci men Type: BLOOD SPECIMENOrdering Facility: [facility] Address: [address] [place] [address] Performed By: #### T SCR ####CC MAIN BLOOD BANKCLIA [id number] [place] [address] [place] Basic metabolic 2000 panelon 12-10-2022 Anion gap [Moles/Vol] 14 mmol/L Normal 9-18 [facility] Comment on above: Order Comment: Speci men Type: BLOOD SPECIMENOrdering Facility: [facility] Address: [address] [place] [address] Performed By: #### 1 9123-9, 88593-4 ####[facility] LABCLIA [id number] [place] [address] [place] Calcium [Mass/Vol] 10.9 mg/dL High 8.5-10.2 [facility] Comment on above: Order Comment: Speci men Type: BLOOD SPECIMENOrdering Facility: [facility] Address: [address] [place], [place] [address] Performed By: #### 1 9123-9, 37425-1 ####[facility] LABCLIA [id number] [place] [address] [place] Chloride [Moles/Vol] 100 mmol/L Normal 97-105 [facility] Comment on above: Order Comment: Speci men Type: BLOOD SPECIMENOrdering Facility: [facility] Address: [address] [place] [address] Performed By: #### 1 91239, ####[facility] LABCLIA [id number] [address] [place] CO2 [Moles/Vol] 19 mmol/L Low 22-30 [facility] Comment on above: Order Comment: Speci men Type: BLOOD SPECIMENOrdering Facility: [facility] Address: [address] [place] [address] Performed By: #### 1 91239, ####[facility] LABCLIA [id number] [place] [address] [place] Creatinine [Mass/Vol] 2.26 mg/dL High 0.73-1.22 [facility] Comment on above: Order Comment: Speci men Type: BLOOD SPECIMENOrdering Facility: [facility] Address: [address] [place] [address] Performed By: #### 1 91239, 31335-9 ####[facility] LABCLIA [id number] [place] [address] [place] Creatinine and Glomerular filtration rate.predicted panel (S/P/Bld) 31 mL/min/1.73m??? Low >=60 [facility] Comment on above: Order Comment: Kaylee christianson Type: BLOOD SPECIMENOrdering Facility: [facility] Address: [address] [place] [address] Result Comment: Mady mated Glomerular Filtration Rate [...] actual GFR. Performed By: #### 1 9123-9, 43341-3 ####[facility] [id number] [place] [address] [place] Glucose [Mass/Vol] 85 mg/dL Normal 74-99 [facility] Comment on above: Order Comment: Kaylee christianson Type: BLOOD SPECIMENOrdering Facility: [facility] Address: [address] [place] [address] Result Comment: The [place] Diabetes Association (ADA) provides guidance for cutoff [...] Standards of Medical Care in Diabetes 2016, [place] [employer]. Diabetes Care. 2016.39(Suppl 1). Performed By: #### 1 9123-9, 19330-8 ####[facility] [id number] [place] [address] [place] Potassium [Moles/Vol] 5.3 mmol/L High 3.7-5.1 [facility] Comment on above: Order Comment: Kaylee christianson Type: BLOOD SPECIMENOrdering Facility: [facility] Address: [address] Performed By: #### 1 9123-9, 64440-5 ####[facility] LABCLIA [id number] [place] [address] [place] Sodium [Moles/Vol] 133 mmol/L Low 136-144 [facility] Comment on above: Order Comment: Speci men Type: BLOOD SPECIMENOrdering Facility: [facility] Address: [address] [place] [address] Performed By: #### 1 9123-9, 24548-6 ####[facility] LABIA [id number] [place] [address] [place] Urea nitrogen [Mass/Vol] 41 mg/dL High 9-24 [facility] Comment on above: Order Comment: Speci men Type: BLOOD SPECIMENOrdering Facility: [facility] Address: [address] [address] Performed By: #### 1 9123-9, 79895-0 ####[facility] LABIA [id number] [place] [address] [place] CBC panel Auto (Bld)on 12-10 Erythrocyte distribution width (RBC) [Ratio] 17.2 % High 11.5-15.0 [facility] Comment on above: Order Comment: Speci men Type: BLOOD SPECIMENOrdering Facility: [facility] Address: [address] [place] [address] Performed By: #### 5 8410-2 ####[facility] LABIA [id number] [place] [address] [place] Hematocrit (Bld) [Volume fraction] 28.8 % Low 39.0-51.0 [facility] Comment on above: Order Comment: Speci men Type: BLOOD SPECIMENOrdering Facility: [facility] Address: [address] [place] [address] Performed By: #### 5 8410-2 ####[facility] LABIA [id number] [place] [address] [place] Hemoglobin (Bld) [Mass/Vol] 8.7 g/dL Low 13.0-17.0 [facility] Comment on above: Order Comment: Speci men Type: BLOOD SPECIMENOrdering Facility: [facility] Address: [address] [place] [address] Performed By: #### 5 8410-2 ####[facility] LABIA [id number] [place] [address] [place] MCH (RBC) [Entitic mass] 33.6 pg Normal 26.0-34.0 [facility] Comment on above: Order Comment: Speci men Type: BLOOD SPECIMENOrdering Facility: [facility] Address: [address] [place] [address] Performed By: #### 5 8410-2 ####[facility] [id number] [address] [place] MCHC (RBC) [Mass/Vol] 30.2 g/dL Low 30.5-36.0 [facility] Comment on above: Order Comment: Speci men Type: BLOOD SPECIMENOrdering Facility: [facility] Address: [address] [place] [address] Performed By: #### 5 8410-2 ####[facility] [id number] [place] [address] [place] MCV (RBC) [Entitic vol] 111.2 fL High 80.0-100.0 [facility] Comment on above: Order Comment: Speci men Type: BLOOD SPECIMENOrdering Facility: [facility] Address: [address] [place] [address] Performed By: #### 5 8410-2 ####[facility] [id number] [id number] [address] [place] Nucleated RBC (Bld) [#/Vol] 10*3/uL Normal <0.01 [facility] Comment on above: Order Comment: Speci men Type: BLOOD SPECIMENOrdering Facility: [facility] Address: [address] [place] [address] Performed By: #### 5 8410-2 ####[facility] LABCLIA [id number] [place] [address] [place] Platelet mean volume (Bld) [Entitic vol] 9.4 fL Normal 9.0-12.7 [facility] Comment on above: Order Comment: Speci men Type: BLOOD SPECIMENOrdering Facility: [facility] Address: [address] [place] [address] Performed By: #### 5 8410-2 ####[facility] LABCLIA [id number] [place] [address] [place] Platelets (Bld) [#/Vol] 446 10*3/uL High 150-400 [facility] Comment on above: Order Comment: Speci men Type: BLOOD SPECIMENOrdering Facility: [facility] Address: [address] [place] [address] Performed By: #### 5 8410-2 ####[facility] LABCLIA [id number] [place] [address] [place] RBC (Bld) [#/Vol] 2.59 10*6/uL Low 4.20-6.00 [facility] Comment on above: Order Comment: Speci men Type: BLOOD SPECIMENOrdering Facility: [facility] Address: [address] [place] [address] Performed By: #### 5 8410-2 ####[facility] LABCLIA [id number] [place] [address] [place] WBC (Bld) [#/Vol] 43.34 10*3/uL High 3.70-11.00 [facility] Comment on above: Order Comment: Speci men Type: BLOOD SPECIMENOrdering Facility: [facility] Address: [address] [place] [address] Performed By: #### 5 8410-2 ####[facility] LABCLIA [id number] SOMMER ZUNIGA [id number] [place], [place] [address] [place] CONSULT PROGon 12-10-2022 CONSULT PROG HNO ID: [id number] Author: Sophie Avila APRN.ASSISTANT WINEMAKER Service: Vascular Medicine Author Type: Nurse Practitioner [...] December 10, 2022 TIME: 12:46 PM pager: [phone] . Normal [facility] Magnesium SerPl-Amadouon 12-10 Magnesium [Mass/Vol] 1.7 mg/dL Normal 1.7-2.3 [facility] Comment on above: Order Comment: Speci men Type: BLOOD SPECIMENOrdering Facility: [facility] Address: [address] [place] [address] [place] [address] Performed By: #### 1 9123-9, 03098-0 ####[facility] LABCLIA [id number] [address] OF [facility] NUTRITIONon 12-10-2022 NUTRITION HNO ID: [id number] Author: Tony Powell RD Service: Nutrition Therapy [...] Weight loss, Imaging studies Estimated kilocalorie needs: 8845-6484 Calorie Calculation Method: 25-30 kcals/kg Estimated protein [...] December 10, 2022 TIME: 10:57 AM Normal [facility] Basic metabolic 2000 panelon 12-09-2022 Anion gap [Moles/Vol] 13 mmol/L Normal 9-18 [facility] Comment on above: Order Comment: Speci men Type: BLOOD SPECIMENOrdering Facility: [facility] Address: [address] [place] [address] Performed By: #### 2 2, ####[facility] LABCLIA [id number] [place] [address] [place] Calcium [Mass/Vol] 10.2 mg/dL Normal 8.5-10.2 [facility] Comment on above: Order Comment: Speci men Type: BLOOD SPECIMENOrdering Facility: [facility] Address: [address] [address] Performed By: #### 2 4320-05, ####[facility] LABCLIA [id number] [place] [address] [place] Chloride [Moles/Vol] 101 mmol/L Normal 97-105 [facility] Comment on above: Order Comment: Speci men Type: BLOOD SPECIMENOrdering Facility: [facility] Address: [address] Performed By: #### 2 4320-05, ####[facility] LABCLIA [id number] [place] [address] [place] CO2 [Moles/Vol] 19 mmol/L Low 22-30 [facility] Comment on above: Order Comment: Speci men Type: BLOOD SPECIMENOrdering Facility: [facility] Address: [address] Performed By: #### 2 43204-15, ####[facility] LABIA [id number] [place] [address] [place] Creatinine [Mass/Vol] 2.10 mg/dL High 0.73-1.22 [facility] Comment on above: Order Comment: Speci men Type: BLOOD SPECIMENOrdering Facility: [facility] Address: [address] Performed By: #### 2 4322, ####[facility] [id number] [address] [facility] Creatinine and Glomerular filtration rate.predicted panel (S/P/Bld) 33 mL/min/1.73m??? Low >=60 [facility] Comment on above: Order Comment: Kaylee men Type: BLOOD SPECIMENOrdering Facility: [facility] Address: [address] [address] Result Comment: Mady mated Glomerular Filtration Rate [...] actual GFR. Performed By: #### 2 43204-15, ####[facility] LABIA [id number] [place] [address] [place] Glucose [Mass/Vol] 102 mg/dL High 74-99 [facility] Comment on above: Order Comment: Speci men Type: BLOOD SPECIMENOrdering Facility: [facility] Address: [address] [address] Result Comment: The [place] Diabetes Association (ADA) provides guidance for cutoff [...] Standards of Medical Care in Diabetes 2016, [place] [employer]. Diabetes Care. 2016.39(Suppl 1). Performed By: #### 2 4320-05, ####[facility] LABCLIA [id number] [place] [address] [place] Potassium [Moles/Vol] 4.7 mmol/L Normal 3.7-5.1 [facility] Comment on above: Order Comment: Speci men Type: BLOOD SPECIMENOrdering Facility: [facility] Address: [address] [place] [address] Performed By: #### 2 4320-05, ####[facility] LABIA [id number] [place] [address] [place] Sodium [Moles/Vol] 133 mmol/L Low 136-144 [facility] Comment on above: Order Comment: Noyi men Type: BLOOD SPECIMENOrdering Facility: [facility] Address: [address] [place] [address] Performed By: #### 2 4320-05, ####[facility] LABCLIA [id number] [place] [address] [place] Urea nitrogen [Mass/Vol] 35 mg/dL High 9-24 [facility] Comment on above: Order Comment: Speci men Type: BLOOD SPECIMENOrdering Facility: [facility] Address: [address] Performed By: #### 2 4320-05, ####[facility] LABCLIA [id number] [address] [place] CBC panel Auto (Bld)on 12-09 Erythrocyte distribution width (RBC) [Ratio] 17.1 % High 11.5-15.0 [facility] Comment on above: Order Comment: Speci men Type: BLOOD SPECIMENOrdering Facility: [facility] Address: [address] [place] [address] Performed By: #### 5 8410-2 ####[facility] [id number] [address] [place] Hematocrit (Bld) [Volume fraction] 27.9 % Low 39.0-51.0 [facility] Comment on above: Order Comment: Speci men Type: BLOOD SPECIMENOrdering Facility: [facility] Address: [address] [place] [address] Performed By: #### 5 8410-2 ####[facility] LABIA [id number] [address] [place] Hemoglobin (Bld) [Mass/Vol] 8.5 g/dL Low 13.0-17.0 [facility] Comment on above: Order Comment: Speci men Type: BLOOD SPECIMENOrdering Facility: [facility] Address: [address] [place] [address] Performed By: #### 5 8410-2 ####[facility] LABIA [id number] [place] [address] [place] MCH (RBC) [Entitic mass] 33.9 pg Normal 26.0-34.0 [facility] Comment on above: Order Comment: Speci men Type: BLOOD SPECIMENOrdering Facility: [facility] Address: [address] [place] [address] Performed By: #### 5 8410-2 ####[facility] LABIA [id number] [address] [place] MCHC (RBC) [Mass/Vol] 30.5 g/dL Normal 30.5-36.0 [facility] Comment on above: Order Comment: Speci men Type: BLOOD SPECIMENOrdering Facility: [facility] Address: [address] Performed By: #### 5 8410-2 ####[facility] LABIA [id number] [address] [place] MCV (RBC) [Entitic vol] 111.2 fL High 80.0-100.0 [facility] Comment on above: Order Comment: Speci men Type: BLOOD SPECIMENOrdering Facility: [facility] Address: [address] [place] [address] Performed By: #### 5 8410-2 ####[facility] LABIA [id number] [place] [address] [place] Nucleated RBC (Bld) [#/Vol] 10*3/uL Normal <0.01 [facility] Comment on above: Order Comment: Speci men Type: BLOOD SPECIMENOrdering Facility: [facility] Address: [address] [place] [address] Performed By: #### 5 8410-2 ####[facility] LABIA [id number] [place] [address] [place] Platelet mean volume (Bld) [Entitic vol] 9.4 fL Normal 9.0-12.7 [facility] Comment on above: Order Comment: Speci men Type: BLOOD SPECIMENOrdering Facility: [facility] Address: [address] [place] [address] Performed By: #### 5 8410-2 ####[facility] LABIA [id number] [place] [address] [place] Platelets (Bld) [#/Vol] 421 10*3/uL High 150-400 [facility] Comment on above: Order Comment: Speci men Type: BLOOD SPECIMENOrdering Facility: [facility] Address: [address] [address] Performed By: #### 5 8410-2 ####[facility] LABCLIA [id number] [place] [address] [place] RBC (Bld) [#/Vol] 2.51 10*6/uL Low 4.20-6.00 [facility] Comment on above: Order Comment: Speci men Type: BLOOD SPECIMENOrdering Facility: [facility] Address: [address] [address] Performed By: #### 5 8410-2 ####[facility] LABIA [id number] [place] [address] [place] WBC (Bld) [#/Vol] 34.52 10*3/uL High 3.70-11.00 [facility] Comment on above: Order Comment: Speci men Type: BLOOD SPECIMENOrdering Facility: [facility] Address: [address] [address] Performed By: #### 5 8410-2 ####[facility] LABIA [id number] [place] [address] [place] CNCOon 12-09-2022 CNCO Letter Text [facility] CONSULTon 12-09-2022 CONSULT HNO ID: [id number] Author: Kristi Humphreys MD Service: Hematology/Oncology Author [...] recommend 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 Normal [facility] Magnesium SerPl-mCncon 12-09 Magnesium [Mass/Vol] 1.7 mg/dL Normal 1.7-2.3 [facility] Comment on above: Order Comment: Speci men Type: BLOOD SPECIMENOrdering Facility: [facility] Address: [address] [place] [address] Performed By: #### 2 4321-2, ####[facility] LABCLIA [id number] [facility] [place] [id number] [place] Albumin SerPl-mCncon 023 Albumin [Mass/Vol] 4.0 g/dL Normal 3.9-4.9 [facility] Comment on above: Order Comment: Speci men Type: BLOOD SPECIMENOrdering Facility: [facility] Address: [address] [place] [address] Performed By: #### 2 4321-2, 7, 2776-04, ####[facility] LABCLIA [id number] [facility] [address] [place] Basic metabolic 2000 panelon 12-08-2022 Anion gap [Moles/Vol] 13 mmol/L Normal 9-18 [facility] Comment on above: Order Comment: Speci men Type: BLOOD SPECIMENOrdering Facility: [facility] Address: [address] [place] [address] Performed By: #### 2 4321-2, 1750-7, 2776-04, ####[facility] LABCLIA [id number] [facility] [place] [id number] [place] Calcium [Mass/Vol] 10.3 mg/dL High 8.5-10.2 [facility] Comment on above: Order Comment: Speci men Type: BLOOD SPECIMENOrdering Facility: [facility] Address: [address] [place] [address] Performed By: #### 2 4321-2, 1750-7, 2776-, ####[facility] LABCLIA [id number] [place] [address] [place] Chloride [Moles/Vol] 100 mmol/L Normal 97-105 [facility] Comment on above: Order Comment: Speci men Type: BLOOD SPECIMENOrdering Facility: [facility] Address: [address] [place] [address] Performed By: #### 2 4321-2, 1750-7, 27710-12, ####[facility] LABCLIA [id number] [place] [address] [place] CO2 [Moles/Vol] 19 mmol/L Low 22-30 [facility] Comment on above: Order Comment: Speci men Type: BLOOD SPECIMENOrdering Facility: [facility] Address: [address] [place] [address] Performed By: #### 2 4321-2, 1750-7, 27710-12, ####[facility] LABCLIA [id number] [place] [address] [place] Creatinine [Mass/Vol] 2.35 mg/dL High 0.73-1.22 [facility] Comment on above: Order Comment: Speci men Type: BLOOD SPECIMENOrdering Facility: [facility] Address: [address] [place] [address] Performed By: #### 2 4321-2, 175-7, 27710-12, ####[facility] LABCLIA [id number] [place] [address] [place] Creatinine and Glomerular filtration rate.predicted panel (S/P/Bld) 29 mL/min/1.73m??? Low >=60 [facility] Comment on above: Order Comment: Speci men Type: BLOOD SPECIMENOrdering Facility: [facility] Address: [address] [place] [address] Result Comment: Mady mated Glomerular Filtration Rate [...] Performed By: #### 2 4321-2, 1750-10, 2776-04, ####[facility] LABCLIA [id number] [address] [address] [place] Glucose [Mass/Vol] 111 mg/dL High 74-99 [facility] Comment on above: Order Comment: Kaylee christianson Type: BLOOD SPECIMENOrdering Facility: [facility] Address: [address] [address] Result Comment: The [place] [employer] Association (ADA) provides guidance for cutoff [...] Standards of Medical Care in Diabetes 2016, [place] [employer]. Diabetes Care. 2016.39(Suppl 1). Performed By: #### 2 4321-2, 1750-10, 2776-04, ####[facility] LABCLIA [id number] [place] [id number] [place] Potassium [Moles/Vol] 4.8 mmol/L Normal 3.7-5.1 [facility] Comment on above: Order Comment: Kaylee christianson Type: BLOOD SPECIMENOrdering Facility: [facility] Address: [address] [phone] Performed By: #### 2 4321-2, 1750-10, 2776-04, ####[facility] LABCLIA [id number] [place] [address] [place] Sodium [Moles/Vol] 132 mmol/L Low 136-144 [facility] Comment on above: Order Comment: Speci men Type: BLOOD SPECIMENOrdering Facility: [facility] Address: [address] [place] [address] Performed By: #### 2 4321-2, 1750-7, 277-, ####[facility] LABIA [id number] [place] [address] [place] Urea nitrogen [Mass/Vol] 34 mg/dL High 9-24 [facility] Comment on above: Order Comment: Speci men Type: BLOOD SPECIMENOrdering Facility: [facility] Address: [address] [place] [address] Performed By: #### 2 4321-2, 7, 27710-12, ####[facility] LABIA [id number] [place] [address] [place] CBC panel Auto (Bld)on 12-08 Erythrocyte distribution width (RBC) [Ratio] 17.0 % High 11.5-15.0 [facility] Comment on above: Order Comment: Speci men Type: BLOOD SPECIMENOrdering Facility: [facility] Address: [address] [place] [address] Performed By: #### 5 8410-2 ####[facility] LABIA [id number] [place] [address] [place] Hematocrit (Bld) [Volume fraction] 27.1 % Low 39.0-51.0 [facility] Comment on above: Order Comment: Speci men Type: BLOOD SPECIMENOrdering Facility: [facility] Address: [address] [place] [address] Performed By: #### 5 8410-2 ####[facility] LABIA [id number] [address] [place] Hemoglobin (Bld) [Mass/Vol] 8.2 g/dL Low 13.0-17.0 [facility] Comment on above: Order Comment: Speci men Type: BLOOD SPECIMENOrdering Facility: [facility] Address: [address] [place] [address] Performed By: #### 5 8410-2 ####[facility] LABIA [id number] [address] MCH (RBC) [Entitic mass] 33.9 pg Normal 26.0-34.0 [facility] Comment on above: Order Comment: Speci men Type: BLOOD SPECIMENOrdering Facility: [facility] Address: [address] [place] [address] Performed By: #### 5 8410-2 ####[facility] LABIA [id number] [address] [place] [facility] MCHC (RBC) [Mass/Vol] 30.3 g/dL Low 30.5-36.0 [facility] Comment on above: Order Comment: Speci men Type: BLOOD SPECIMENOrdering Facility: [facility] Address: [address] [place], [place] [address] Performed By: #### 5 8410-2 ####[facility] LABIA [id number] [address] [place] MCV (RBC) [Entitic vol] 112.0 fL High 80.0-100.0 [facility] Comment on above: Order Comment: Speci men Type: BLOOD SPECIMENOrdering Facility: [facility] Address: [address] [place] [address] Performed By: #### 5 8410-2 ####[facility] LABIA [id number] [address] [place] Nucleated RBC (Bld) [#/Vol] 10*3/uL Normal <0.01 [facility] Comment on above: Order Comment: Speci men Type: BLOOD SPECIMENOrdering Facility: [facility] Address: [address] Performed By: #### 5 8410-2 ####[facility] LABCLIA [id number] [place] [address] [place] Platelet mean volume (Bld) [Entitic vol] 9.2 fL Normal 9.0-12.7 [facility] Comment on above: Order Comment: Speci men Type: BLOOD SPECIMENOrdering Facility: [facility] Address: [address] [place] [address] Performed By: #### 5 8410-2 ####[facility] LABCLIA [id number] [place] [address] [place] Platelets (Bld) [#/Vol] 436 10*3/uL High 150-400 [facility] Comment on above: Order Comment: Speci men Type: BLOOD SPECIMENOrdering Facility: [facility] Address: [address] [place] [address] Performed By: #### 5 8410-2 ####[facility] LABIA [id number] [place] [address] [place] RBC (Bld) [#/Vol] 2.42 10*6/uL Low 4.20-6.00 [facility] Comment on above: Order Comment: Speci men Type: BLOOD SPECIMENOrdering Facility: [facility] Address: [address] [place] [address] Performed By: #### 5 8410-2 ####[facility] LABCLIA [id number] [place] [address] [place] WBC (Bld) [#/Vol] 36.26 10*3/uL High 3.70-11.00 [facility] Comment on above: Order Comment: Speci men Type: BLOOD SPECIMENOrdering Facility: [facility] Address: [address] [place] [address] Performed By: #### 5 8410-2 ####[facility] LABCLIA [id number] LILLIANAEstrellita EFRAIN [id number] [address] [place] CONSULT PROGon 12-08-2022 CONSULT PROG HNO ID: [id number] Author: Quintin Haywood MD Service: Infectious Disease [...] December 08, 2022 TIME: 8:58 PM Normal [facility] Magnesium SerPl-mCncon 12-08 Magnesium [Mass/Vol] 1.7 mg/dL Normal 1.7-2.3 [facility] Comment on above: Order Comment: Speci men Type: BLOOD SPECIMENOrdering Facility: [facility] Address: [address] [place] [address] Performed By: #### 2 4321-2, 1751-7, 2777-1, 53451-5 ####[facility] LABCLIA [id number] [address] [place] NUTRITIONon 12-08-2022 NUTRITION HNO ID: [id number] Author: Elysia Murillo DTR Service: Nutrition Therapy Author Type: Flowers Salesperson Type: Nutrition Filed: 12/08/2022 12:09 PM Note Text: NUTRITION THERAPY INTERPRETIVE PROGRAM COORDINATOR NOTE SERVICE DATE: 12/08/2022 SERVICE TIME: 925 [...] December 08, 2022 TIME: 12:09 PM Normal [facility] Phosphate SerPl-mCncon 12-08 Phosphate [Mass/Vol] 4.1 mg/dL Normal 2.7-4.8 [facility] Comment on above: Order Comment: Speci men Type: BLOOD SPECIMENOrdering Facility: [facility] Address: [address] [place] [address] Performed By: #### 2 4321-2, 1751-7, 2777-1, 51620-5 ####[facility] [id number] [place] [address] [place] Renal function 2000 panelon 12-08-2022 Albumin [Mass/Vol] 3.7 g/dL Low 3.9-4.9 [facility] Comment on above: Order Comment: Speci men Type: BLOOD SPECIMENOrdering Facility: [facility] Address: [address] [address] Performed By: #### 2 4362-6 ####[facility] [id number] [place] [address] [place] Anion gap [Moles/Vol] 13 mmol/L Normal 9-18 [facility] Comment on above: Order Comment: Speci men Type: BLOOD SPECIMENOrdering Facility: [facility] Address: [address] [address] Performed By: #### 2 4362-6 ####[facility] LABCLIA [id number] [place] [address] [place] Calcium [Mass/Vol] 10.0 mg/dL Normal 8.5-10.2 [facility] Comment on above: Order Comment: Speci men Type: BLOOD SPECIMENOrdering Facility: [facility] Address: [address] [place] [address] Performed By: #### 2 4362-6 ####[facility] LABCLIA [id number] [place] [address] [place] Chloride [Moles/Vol] 102 mmol/L Normal 97-105 [facility] Comment on above: Order Comment: Speci men Type: BLOOD SPECIMENOrdering Facility: [facility] Address: [address] [place] [address] Performed By: #### 2 4362-6 ####[facility] LABCLIA [id number] [place] [address] [place] CO2 [Moles/Vol] 18 mmol/L Low 22-30 [facility] Comment on above: Order Comment: Speci men Type: BLOOD SPECIMENOrdering Facility: [facility] Address: [address] [place] [address] Performed By: #### 2 4362-6 ####[facility] LABCLIA [id number] [place] [address] [place] Creatinine [Mass/Vol] 2.37 mg/dL High 0.73-1.22 [facility] Comment on above: Order Comment: Speci men Type: BLOOD SPECIMENOrdering Facility: [facility] Address: [address] [place] [address] Performed By: #### 2 4362-6 ####[facility] LABCLIA [id number] [place] [address] [place] Creatinine and Glomerular filtration rate.predicted panel (S/P/Bld) 29 mL/min/1.73m??? Low >=60 [facility] Comment on above: Order Comment: Kaylee christianson Type: BLOOD SPECIMENOrdering Facility: [facility] Address: [address] [place] [address] Result Comment: Mady mated Glomerular Filtration Rate [...] actual GFR. Performed By: #### 2 4362-6 ####[facility] LABCLIA [id number] [place] [address] [place] Glucose [Mass/Vol] 99 mg/dL Normal 74-99 [facility] Comment on above: Order Comment: Kaylee christianson Type: BLOOD SPECIMENOrdering Facility: [facility] Address: [address] [place] [address] Result Comment: The [place] [employer] (ADA) provides guidance for cutoff [...] Standards of Medical Care in Diabetes 2016, [place] [employer]. Diabetes Care. 2016.39(Suppl 1). Performed By: #### 2 4362-6 ####[facility] LABCLIA [id number] [place] [id number] [place] Phosphate [Mass/Vol] 4.5 mg/dL Normal 2.7-4.8 [facility] Comment on above: Order Comment: Speci men Type: BLOOD SPECIMENOrdering Facility: [facility] Address: [address] [address] Performed By: #### 2 4362-6 ####[facility] LABCLIA [id number] [place] [address] [place] Potassium [Moles/Vol] 5.2 mmol/L High 3.7-5.1 [facility] Comment on above: Order Comment: Speci men Type: BLOOD SPECIMENOrdering Facility: [facility] Address: [address] [address] Performed By: #### 2 4362-6 ####[facility] LABCLIA [id number] [place] [address] [place] Sodium [Moles/Vol] 133 mmol/L Low 136-144 [facility] Comment on above: Order Comment: Speci men Type: BLOOD SPECIMENOrdering Facility: [facility] Address: [address] [address] Performed By: #### 2 4362-6 ####[facility] LABCLIA [id number] [place] [address] [place] Urea nitrogen [Mass/Vol] 34 mg/dL High 9-24 [facility] Comment on above: Order Comment: Speci men Type: BLOOD SPECIMENOrdering Facility: [facility] Address: [address] [address] Performed By: #### 2 4362-6 ####[facility] LABCLIA [id number] [place] [address] [place] TYPE + SCREENon 12-08-2022 ABO B Normal [facility] Comment on above: Order Comment: Speci men Type: BLOOD SPECIMENOrdering Facility: [facility] Address: [address] [place] [address] Performed By: #### T SCR ####[facility] BLOOD BANKCLIA [id number] [address] [place] [facility] HISTORICAL AB SCR STATUS Negative Normal [facility] Comment on above: Order Comment: Speci men Type: BLOOD SPECIMENOrdering Facility: [facility] Address: [address] [address] Performed By: #### T SCR ####[facility] BLOOD BANKCLIA [id number] [address] [place] Rh Nom (Bld) Positive Normal [facility] Comment on above: Order Comment: Speci men Type: BLOOD SPECIMENOrdering Facility: [facility] Address: [address] [address] Performed By: #### T SCR ####[facility] BLOOD BANKCLIA [id number] [address] OF [facility] TYPE AND SCREEN EXPIRATION 12/11/2022 23:59 Normal [facility] Comment on above: Order Comment: Speci men Type: BLOOD SPECIMENOrdering Facility: [facility] Address: [address] [address] Performed By: #### T SCR ####[facility] BLOOD BANKCLIA [id number] [place] [address] [place] Basic metabolic 2000 panelon 12-07-2022 Anion gap [Moles/Vol] 13 mmol/L Normal 9-18 [facility] Comment on above: Order Comment: Speci men Type: BLOOD SPECIMENOrdering Facility: [facility] Address: [address] Performed By: #### 1 9123-9, 48704-2 ####[facility] LABCLIA [id number] [place] [address] [place] Calcium [Mass/Vol] 10.0 mg/dL Normal 8.5-10.2 [facility] Comment on above: Order Comment: Speci men Type: BLOOD SPECIMENOrdering Facility: [facility] Address: [address] Performed By: #### 1 9123-9, 53770-6 ####[facility] LABCLIA [id number] [place] [address] [place] Chloride [Moles/Vol] 104 mmol/L Normal 97-105 [facility] Comment on above: Order Comment: Speci men Type: BLOOD SPECIMENOrdering Facility: [facility] Address: [address] [place] [address] Performed By: #### 1 9123-9, 75229-1 ####[facility] LABIA [id number] [place] [address] [place] CO2 [Moles/Vol] 19 mmol/L Low 22-30 [facility] Comment on above: Order Comment: Speci men Type: BLOOD SPECIMENOrdering Facility: [facility] Address: [address] [place] [address] Performed By: #### 1 9123-9, 57819-6 ####[facility] LABIA [id number] [place] [address] [place] Creatinine [Mass/Vol] 2.14 mg/dL High 0.73-1.22 [facility] Comment on above: Order Comment: Speci men Type: BLOOD SPECIMENOrdering Facility: [facility] Address: [address] [place] [address] Performed By: #### 1 9123-9, 43157-9 ####[facility] LABIA [id number] [place] [address] [place] Creatinine and Glomerular filtration rate.predicted panel (S/P/Bld) 33 mL/min/1.73m??? Low >=60 [facility] Comment on above: Order Comment: Speci men Type: BLOOD SPECIMENOrdering Facility: [facility] Address: [address] [place] [address] Result Comment: Mady mated Glomerular Filtration Rate [...] actual GFR. Performed By: #### 1 9123-9, 50504-1 ####[facility] LABCLIA [id number] [place] [address] [place] Glucose [Mass/Vol] 96 mg/dL Normal 74-99 [facility] Comment on above: Order Comment: Kaylee christianson Type: BLOOD SPECIMENOrdering Facility: [facility] Address: [address] [address] Result Comment: The [place] [employer] Association (ADA) provides guidance for cutoff [...] Standards of Medical Care in Diabetes 2016, [place] [employer]. Diabetes Care. 2016.39(Suppl 1). Performed By: #### 1 9123-9, 51180-2 ####[facility] LABCLIA [id number] [place] [id number] [place] Potassium [Moles/Vol] 5.3 mmol/L High 3.7-5.1 [facility] Comment on above: Order Comment: Kaylee christianson Type: BLOOD SPECIMENOrdering Facility: [facility] Address: [address] [id number] Performed By: #### 1 9123-9, 71276-5 ####[facility] LABCLIA [id number] [place] [address] [place] Sodium [Moles/Vol] 136 mmol/L Normal 136-144 [facility] Comment on above: Order Comment: Speci men Type: BLOOD SPECIMENOrdering Facility: [facility] Address: [address] [place] [address] Performed By: #### 1 9123-9, 04074-5 ####[facility] LABCLIA [id number] [place] [address] [place] Urea nitrogen [Mass/Vol] 31 mg/dL High 9-24 [facility] Comment on above: Order Comment: Speci men Type: BLOOD SPECIMENOrdering Facility: [facility] Address: [address] [place] [address] Performed By: #### 1 9123-9, 81158-8 ####[facility] LABCLIA [id number] [place] [address] [place] CBC panel Auto (Bld)on 12-07 Erythrocyte distribution width (RBC) [Ratio] 17.1 % High 11.5-15.0 [facility] Comment on above: Order Comment: Speci men Type: BLOOD SPECIMENOrdering Facility: [facility] Address: [address] [place] [address] Performed By: #### 5 8410-2 ####[facility] LABCLIA [id number] [place] [address] [place] Hematocrit (Bld) [Volume fraction] 27.3 % Low 39.0-51.0 [facility] Comment on above: Order Comment: Speci men Type: BLOOD SPECIMENOrdering Facility: [facility] Address: [address] [place] [address] Performed By: #### 5 8410-2 ####[facility] LABCLIA [id number] [place] [address] [place] Hemoglobin (Bld) [Mass/Vol] 8.3 g/dL Low 13.0-17.0 [facility] Comment on above: Order Comment: Speci men Type: BLOOD SPECIMENOrdering Facility: [facility] Address: [address] Performed By: #### 5 8410-2 ####[facility] LABIA [id number] [address] [place] MCH (RBC) [Entitic mass] 34.4 pg High 26.0-34.0 [facility] Comment on above: Order Comment: Speci men Type: BLOOD SPECIMENOrdering Facility: [facility] Address: [address] Performed By: #### 5 8410-2 ####[facility] LABIA [id number] [address] [place] MCHC (RBC) [Mass/Vol] 30.4 g/dL Low 30.5-36.0 [facility] Comment on above: Order Comment: Speci men Type: BLOOD SPECIMENOrdering Facility: [facility] Address: [address] Performed By: #### 5 8410-2 ####[facility] LABIA [id number] [address] [place] MCV (RBC) [Entitic vol] 113.3 fL High 80.0-100.0 [facility] Comment on above: Order Comment: Speci men Type: BLOOD SPECIMENOrdering Facility: [facility] Address: [address] Performed By: #### 5 8410-2 ####[facility] LABIA [id number] [address] [place] Nucleated RBC (Bld) [#/Vol] 10*3/uL Normal <0.01 [facility] Comment on above: Order Comment: Speci men Type: BLOOD SPECIMENOrdering Facility: [facility] Address: [address] Performed By: #### 5 8410-2 ####[facility] LABCLIA [id number] [place] [address] [place] Platelet mean volume (Bld) [Entitic vol] 9.2 fL Normal 9.0-12.7 [facility] Comment on above: Order Comment: Speci men Type: BLOOD SPECIMENOrdering Facility: [facility] Address: [address] [place] [address] Performed By: #### 5 8410-2 ####[facility] LABCLIA [id number] [place] [address] [place] Platelets (Bld) [#/Vol] 429 10*3/uL High 150-400 [facility] Comment on above: Order Comment: Speci men Type: BLOOD SPECIMENOrdering Facility: [facility] Address: [address] [place] [address] Performed By: #### 5 8410-2 ####[facility] LABCLIA [id number] [place] [address] [place] RBC (Bld) [#/Vol] 2.41 10*6/uL Low 4.20-6.00 [facility] Comment on above: Order Comment: Speci men Type: BLOOD SPECIMENOrdering Facility: [facility] Address: [address] [place] [phone] Performed By: #### 5 8410-2 ####[facility] LABCLIA [id number] [place] [address] [place] WBC (Bld) [#/Vol] 34.46 10*3/uL High 3.70-11.00 [facility] Comment on above: Order Comment: Speci men Type: BLOOD SPECIMENOrdering Facility: [facility] Address: [address] [place] [address] Performed By: #### 5 8410-2 ####[facility] LABCLIA [id number] [place] [id number] [facility] [place] CONSULT PROGon 12-07-2022 CONSULT PROG HNO ID: [id number] Author: Quintin Haywood MD Service: Infectious Disease [...] December 07, 2022 TIME: 9:05 PM Normal [facility] HISTOPLASMA AG URINEon 12-07 H. capsulatum Ag (U) [Mass/Vol] <0.2 Normal <0.2 [facility] Comment on above: Order Comment: Speci men Type: URINE SPECIMENOrdering Facility: [facility] Address: [address] [place] [address] Performed By: #### U HISTO ####[facility] [facility] LABCLIA [id number] [place] [address] [place] H. capsulatum Ag IA Ql (U) Negative Normal Negative [facility] Comment on above: Order Comment: Speci men Type: URINE SPECIMENOrdering Facility: [facility] Address: [address] [place] [address] Result Comment: Hist oplasma galactomannan antigen, urine test is used as an aid in diagnosing histoplasmosis. A negative result cannot rule out infection. Low positive results may at times be due to cross-reactivity with Blastomyces, Talaromyces marneffei, Paracoccidioides, and some Barbara species. Clinical radiological, and epidemiological correlation is required. Performed By: #### U HISTO ####[facility] LABCLIA [id number] [place] [address] [place] Magnesium SerPl-mCncon 12-07 Magnesium [Mass/Vol] 1.6 mg/dL Low 1.7-2.3 [facility] Comment on above: Order Comment: Speci men Type: BLOOD SPECIMENOrdering Facility: [facility] Address: [address] [place] [address] Performed By: #### 1 9123-9, 78153-7 ####[facility] LABCLIA [id number] [address] [id number] [address] [facility] Culture Sputum w/ Gram Stain on 11-06-2022 Culture Sputum w/ Gram Stain Direct Exam: >25 WBC's per low power field >25 Epithelial Cells per low power field Gram stain indicates excessive oral contamination. Culture will not be interpreted. Please re-order and re-submit if clinically indicated. Susceptibility Data: [facility] Comment on above: Order Comment: TODD p erformed at additional charge when indicated Performed By: #### C XSPUTM #### [facility] [address] [place], [place] [id number] CBC W Auto Differential pane l (Bld)on 10-16-2022 Anisocytosis Ql (Bld) Present [facility] Basophils (Bld) [#/Vol] 0.00 10*3/uL <0.11 k/uL [facility] Basophils/100 WBC (Bld) 0.0 % [facility] Differential cell count method Nom (Bld) Manual [facility] Eosinophils (Bld) [#/Vol] 0.00 10*3/uL <0.46 k/uL [facility] Eosinophils/100 WBC (Bld) 0.0 % [facility] Erythrocyte distribution width (RBC) [Ratio] 19.9 % High 11.5 - 15.0 % [facility] Hematocrit (Bld) [Volume fraction] 34.7 % Low 39.0 - 51.0 % [facility] Hemoglobin (Bld) [Mass/Vol] 10.2 g/dL Low 13.0 - 17.0 g/dL [facility] Lymphocytes (Bld) [#/Vol] 28.70 10*3/uL High 1.00 - 4.00 k/uL [facility] Lymphocytes/100 WBC (Bld) 76.0 % [facility] Lymphocytes/100 WBC (Bld) 6.0 % [facility] MCH (RBC) [Entitic mass] 31.4 pg 26.0 - 34.0 pg [facility] MCHC (RBC) [Mass/Vol] 29.4 g/dL Low 30.5 - 36.0 g/dL [facility] MCV (RBC) [Entitic vol] 106.8 fL High 80.0 - 100.0 fL [facility] Monocytes (Bld) [#/Vol] 0.38 10*3/uL <0.87 k/uL [facility] Monocytes/100 WBC (Bld) 1.0 % [facility] Neutrophils (Bld) [#/Vol] 6.42 10*3/uL 1.45 - 7.50 k/uL [facility] Neutrophils/100 WBC (Bld) 17.0 % [facility] Nucleated RBC (Bld) [#/Vol] <0.01 k/uL [facility] Nucleated RBC/100 WBC (Bld) [Ratio] 0.0 /100 WBC [facility] Ovalocytes LM Ql (Bld) Few [facility] Platelet mean volume (Bld) [Entitic vol] 9.7 fL 9.0 - 12.7 fL [facility] Platelets (Bld) [#/Vol] 615 10*3/uL High 150 - 400 k/uL [facility] Platelets Estimate (Bld) [#/Vol] Increased [facility] RBC (Bld) [#/Vol] 3.25 10*6/uL Low 4.20 - 6.0 0 m/uL [facility] Red Cell Morph Reviewed: see result s of individual morphologies [facility] WBC (Bld) [#/Vol] 37.76 10*3/uL High 3.70 - 11.00 k/uL [facility] TYPE + SCREENon 10-16-2022 ABO B [facility] HIstorical Ab Scr Status Negative [facility] Rh Nom (Bld) Positive [facility] Type and Screen Expiration 10/19/2022 23:59 [facility] COLONOSCOPY DIAGNOSTICon [facility] ENTEROSCOPYon 10-09-2022 [facility] CT CHEST W IVCONon Radiology Result ACTIONABLE Abnormal [facility] US DVT LOWER LTon 07-04-2022 [facility] Influenza virus A and B RNA and SARS-CoV-2 (COVID-19) N gene panel MYA+probe (Resp)on 04-17-2022 FLUAV RNA MYA+probe Ql (Unsp spec) Negative Negative for Influenza A by RT-PCR [facility] FLUBV RNA MYA+probe Ql (Unsp spec) Negative Negative for Influenza B by RT-PCR [facility] SARS-CoV-2 (COVID-19) RNA MYA+probe Ql (Resp) SARS-CoV-2 (Agent of COVID-19) Not Detected by RT-PCR or equivalent method. Not Detected [facility] No Panel Informationon 04-17 [facility] Surgical Pathology Depar tmenton 01-20-2022 [facility] Surgical Pathology Department Name ADINA DAVID Pathologist: AALIYAH MONSALVE MD Date of Procedure: 01/20/2022 Date Received: 01/21/2022 Date Reported 01/30/2022 Submitting Physician: JAKOB BLOCK Location: [facility] Other External # [id number] FINAL DIAGNOSIS A. HERNIA SAC: -- FIBROADIPOSE TISSUE CONSISTENT WITH HERNIA SAC. Electronically Signed Out By AALIYAH MONSALVE MD/CALOS By the signature on this report, the individual or group listed as making the Final Interpretation/Diagnosis certifies that they have reviewed this case. Diagnostic interpretation performed at [facility] [address] [facility] [address] Clinical History: Incarcerated inguinal hernia Specimens Submitted As: A: HERNIA SAC Other Case Numbers [id number] Gross Description: Received in formalin, labeled with the patient's name and hospital number and hernia sac, is a membraneous segment of tissue measuring 1.0 x 6.5 x 2.0 cm. Areas of induration, nodularity, hemorrhage, necrosis are not seen. Booth Supervisor sections are submitted in one cassette. WILLIAM hart/01/23/2022 [facility] Department of Pathology [address] [place] [address] [facility] Comment on above: Performed By: #### U [facility] #### [facility] Surgical Pathology Department [id number] [facility] [address] XR CHEST 2V FRONTAL/LATon XR CHEST 2V [...] thoracic spine. IMPRESSION: No acute radiographic abnormality. Induction Coordination Power Engineer: ISABELLE Transcribe Date/Time: Mar 30 2020 2:14P Dictated by : EULALIO ADAMS MD This examination was interpreted and the report reviewed and electronically signed by: EULALIO ADAMS MD on Mar 30 2020 2:15PM EST Normal [facility] No Panel Information [facility] Vital Signs Date Time Vital Sign Value Performing Clinician Facility 05-26-2024 10:11-0500 Heart rate 100 /min REJI STEEN MD [facility] 05-26-2024 07:58-0500 Heart rate 95 /min REJI STEEN MD [facility] 05-26-2024 07:58-0500 Respiratory rate 16 /min REJI STEEN MD [facility] 05-26-2024 07:56-0500 Blood Pressure Cuff Size REJI STEEN MD [facility] 05-26-2024 07:56-0500 Blood Pressure Location REJI STEEN MD [address] [place] [address] 05-26-2024 07:56-0500 Blood Pressure Method REJI STEEN MD [address] [place] [address] 05-26-2024 07:56-0500 Body temperature 97.88 [degF] REJI STEEN MD [address] 05-26-2024 07:56-0500 Diastolic Blood Pressure Non-Invasive 83 mm[Hg] REJI STEEN MD [address] 05-26-2024 07:56-0500 Heart rate 81 /min REJI STEEN MD [address] 05-26-2024 07:56-0500 Reason For Taking VItal Signs REJI STEEN MD [address] 05-26-2024 07:56-0500 Respiratory rate 16 /min REJI STEEN MD [address] [place] [address] 05-26-2024 07:56-0500 Systolic Blood Pressure Non-Invasive 158 mm[Hg] RJEI STEEN MD [address] [place] [address] 05-25-2024 21:58-0500 Blood Pressure Cuff Size REJI STEEN MD [address] [place] [address] 05-25-2024 21:58-0500 Blood Pressure Location REJI STEEN MD [address] [place] [address] 05-25-2024 21:58-0500 Blood Pressure Method REJI STEEN MD [address] [place] [address] 05-25-2024 21:58-0500 Body temperature 97.88 [degF] REJI STEEN MD [facility] 05-25-2024 21:58-0500 Diastolic Blood Pressure Non-Invasive 76 mm[Hg] REJI STEEN MD [address] [place] [address] 05-25-2024 21:58-0500 Heart rate 99 /min REJI STEEN MD [address] [place] [address] 05-25-2024 21:58-0500 Respiratory rate 16 /min REJI STEEN MD [address] [place] [address] 05-25-2024 21:58-0500 Systolic Blood Pressure Non-Invasive 135 mm[Hg] REJI STEEN MD [address] 05-25-2024 15:07-0500 Body temperature 97.88 [degF] REJI STEEN MD [address] 05-25-2024 15:07-0500 Diastolic Blood Pressure Non-Invasive 74 mm[Hg] REJI STEEN MD [address] [place] [address] 05-25-2024 15:07-0500 Reason For Taking VItal Signs REJI STEEN MD [address] [place] [address] 05-25-2024 15:07-0500 Signs/Symptoms Transfusion Reaction REJI STEEN MD [address] [place] [address] 05-25-2024 15:07-0500 Systolic Blood Pressure Non-Invasive 112 mm[Hg] REJI STEEN MD [address] [place] [address] 05-25-2024 14:32-0500 Heart rate 106 /min REJI STEEN MD [address] [place] [address] 05-25-2024 14:32-0500 Reason For Taking VItal Signs REJI STEEN MD [address] [place] [address] 05-25-2024 14:07-0500 Diastolic blood pressure 75 mm[Hg] REJI STEEN MD [address] [place] [address] 05-25-2024 14:07-0500 Signs/Symptoms Transfusion Reaction REJI STEEN MD [facility] 05-25-2024 14:07-0500 Systolic blood pressure 118 mm[Hg] REJI STEEN MD [address] [place] [address] 05-25-2024 14:01-0500 Signs/Symptoms Transfusion Reaction No REJI STEEN MD [address] [place] [address] 05-25-2024 10:19-0500 Heart rate 90 /min REJI STEEN MD [address] [place] [address] 05-25-2024 10:10-0500 Heart rate 92 /min REJI STEEN MD [address] [place] [address] 05-25-2024 07:52-0500 Blood Pressure Cuff Size REJI STEEN MD [address] [place] [address] 05-25-2024 07:52-0500 Blood Pressure Location REJI STEEN MD [address] [place] [address] 05-25-2024 07:52-0500 Blood Pressure Method REJI STEEN MD [address] [place] [address] 05-25-2024 07:52-0500 Body temperature 98.78 [degF] REJI STEEN MD [address] [place] [address] 05-24-2024 16:21-0500 Body temperature 97.7 [degF] REJI STEEN MD [address] [place] [address] 05-24-2024 16:21-0500 Heart rate 80 /min REJI STEEN MD [address] [place] [address] 05-24-2024 15:45-0500 Body temperature 97.88 [degF] REJI STEEN MD [address] [place] [address] 05-24-2024 15:45-0500 Heart rate 82 /min REJI STEEN MD [address] [place] [address] 05-24-2024 15:45-0500 Mean blood pressure 82 mm[Hg] REJI STEEN MD [address] [place] [address] 05-24-2024 15:15-0500 Mean blood pressure 83 mm[Hg] REJI STEEN MD [address] [place] [address] 05-24-2024 15:04-0500 Mean blood pressure 82 mm[Hg] REJI STEEN MD [address] [place] [address] 05-24-2024 14:17-0500 Body temperature 97.88 [degF] REJI STEEN MD [address] [place] [address] 05-24-2024 14:15-0500 Respiratory Rate - Anes 0 br/min REJI STEEN MD [address] [place] [address] 05-24-2024 14:10-0500 Respiratory Rate - Anes 21 br/min REJI STEEN MD [address] [place] [address] 05-24-2024 14:05-0500 Respiratory Rate - Anes 22 br/min REJI STEEN MD [address] [place] [address] 05-24-2024 13:10-0500 Body temperature 97.7 [degF] REJI STEEN MD [address] [place] [address] 05-23-2024 15:38-0500 Body height 175.3 cm REJI STEEN MD [address] [place] [address] 05-23-2024 15:38-0500 Body weight 81.8 kg REJI STEEN MD [address] [place] [address] 05-23-2024 15:38-0500 Body weight 26.62 kg/m2 REJI STEEN MD [address] [place] [address] 05-23-2024 09:50-0500 Body weight 81.8 kg REJI STEEN MD [address] [place] [address] 05-03-2024 11:08-0500 Heart rate 88 /min THERESA KENNEDY DO [address] [place] [address] 05-03-2024 11:08-0500 Respiratory rate 20 /min THERESA KENNEDY DO [address] [place] [address] 05-03-2024 08:00-0500 Heart rate 101 /min THERESA KENNEDY DO [address] [place] [address] 05-03-2024 06:33-0500 Heart rate 85 /min THERESA MARIA D DO [address] [place] [address] 05-03-2024 06:33-0500 Respiratory rate 18 /min THERESA KENNEDY DO [address] 05-03-2024 04:30-0500 Reason For Taking VItal Signs THERESA KENNEDY DO [address] [place] [address] 05-03-2024 03:17-0500 Blood Pressure Cuff Size THERESA KENNEDY DO [address] [place] [address] 05-03-2024 03:17-0500 Blood Pressure Location THERESA KENNEDY DO [address] [place] [address] 05-03-2024 03:17-0500 Blood Pressure Method THERESA KENNEDY DO [address] [place] [address] 05-03-2024 03:17-0500 Body temperature 97.88 [degF] THERESA KENNEDY DO [address] [place] [address] 05-03-2024 03:17-0500 Diastolic Blood Pressure Non-Invasive 60 mm[Hg] THERESA KENNEDY DO [address] [place] [address] 05-03-2024 03:17-0500 Respiratory rate 18 /min THERESA KENNEDY DO [address] [place] [address] 05-03-2024 03:17-0500 Systolic Blood Pressure Non-Invasive 103 mm[Hg] THERESA KENNEDY DO [address] [place] [address] 05-02-2024 23:27-0500 Body temperature 98.42 [degF] THERESA KENNEDY DO [facility] 05-02-2024 23:27-0500 Diastolic Blood Pressure Non-Invasive 55 mm[Hg] THERESA MARIA D [facility] 05-02-2024 23:27-0500 Heart rate 86 /min THERESA MARIA D [facility] 05-02-2024 23:27-0500 Systolic Blood Pressure Non-Invasive 110 mm[Hg] THERESA MARIA D [facility] 05-02-2024 19:51-0500 Diastolic Blood Pressure Non-Invasive 65 mm[Hg] THERESA MARIA D [facility] 05-02-2024 19:51-0500 Systolic Blood Pressure Non-Invasive 127 mm[Hg] THERESA MARIA D [facility] 05-02-2024 19:45-0500 Body temperature 98.24 [degF] THERESA MARIA D [facility] 05-02-2024 11:50-0500 Blood Pressure Cuff Size THERESA MARIA D [facility] 05-02-2024 11:50-0500 Blood Pressure Location THERESA MARIA D [facility] 05-02-2024 11:50-0500 Blood Pressure Method THERESA MARIA DLILLIAM SIERRA [facility] 05-02-2024 08:06-0500 Heart rate 91 /min THERESA MARIA D [facility] 05-02-2024 07:54-0500 Blood Pressure Cuff Size THERESA MARIA D [facility] 05-02-2024 07:54-0500 Blood Pressure Location THERESA MARIA D [facility] 05-02-2024 07:54-0500 Blood Pressure Method THERESA MARIA D [facility] 05-02-2024 03:10-0500 Heart rate 95 /min THERESA KENNEDY DO [facility] 05-02-2024 00:37-0500 Body height 177.8 cm THERESA KENNEDY DO [facility] 05-02-2024 00:37-0500 Body weight 85.9 kg THERESA KENNEDY DO [facility] 05-02-2024 00:37-0500 Body weight 27.17 kg/m2 THERESA KENNEDY DO [facility] 05-01-2024 23:00-0500 Diastolic Blood Pressure Non-Invasive 67 mm[Hg] DIMITRY JIMENES MD [facility] 05-01-2024 23:00-0500 Heart rate 100 /min DIMITRY JIMENES MD [facility] 05-01-2024 23:00-0500 Systolic Blood Pressure Non-Invasive 109 mm[Hg] DIMITRY JIMENES MD [facility] 05-01-2024 22:21-0500 Diastolic Blood Pressure Non-Invasive 66 mm[Hg] DIMITRY JIMENES MD [facility] 05-01-2024 22:21-0500 Heart rate 103 /min DIMITRY JIMENES MD [facility] 05-01-2024 22:21-0500 Respiratory rate 16 /min DIMITRY JIMENES MD [facility] 05-01-2024 22:21-0500 Systolic Blood Pressure Non-Invasive 118 mm[Hg] DIMITRY JIMENES MD [facility] 05-01-2024 21:14-0500 Diastolic Blood Pressure Non-Invasive 71 mm[Hg] DIMITRY JIMENES MD [facility] 05-01-2024 21:14-0500 Heart rate 104 /min DIMITRY JIMENES MD [facility] 05-01-2024 21:14-0500 Respiratory rate 20 /min DIMITRY JIMENES MD [facility] 05-01-2024 21:14-0500 Systolic Blood Pressure Non-Invasive 104 mm[Hg] DIMITRY JIMENES MD [facility] 05-01-2024 15:46-0500 Mean blood pressure 58 mm[Hg] DIMITRY JIMENES MD [facility] 05-01-2024 15:21-0500 Mean blood pressure 80 mm[Hg] DIMITRY JIMENES MD [facility] 05-01-2024 15:21-0500 Reason For Taking VItal Signs DIMITRY JIMENES MD [facility] 05-01-2024 15:00-0500 Mean blood pressure 67 mm[Hg] DIMITRY JIMENES MD [facility] 05-01-2024 14:46-0500 Reason For Taking VItal Signs DIMITRY JIMENES MD [facility] 05-01-2024 13:38-0500 Blood Pressure Location DIMITRY JIMENES MD [facility] 05-01-2024 13:38-0500 Body temperature 98.6 [degF] DMIITRY JIMENES MD [facility] 01-01-2024 10:00-0400 Heart rate 108 /min Heaven Shelley TAIL EDGER Work Phone: [facility] 01-01-2024 10:00-0400 SaO2% (BldA) [Mass fraction] 98 % Heaven Shelley TAIL EDGER Work Phone: [facility] 12-24-2023 12:00-0400 Diastolic blood pressure 91 mm[Hg] Андрей Mon PT Work Phone: [facility] 12-24-2023 12:00-0400 Systolic blood pressure 140 mm[Hg] Андрей Mon PT Work Phone: [facility] 10-17-2023 12:52-0400 Body temperature 97.81 [degF] Deysi Chikis CUTTER INSPECTOR - ASSISTANT WINEMAKER Work Phone: [facility] 10-17-2023 12:52-0400 Diastolic blood pressure 86 mm[Hg] Deysi Chikis CUTTER INSPECTOR - ASSISTANT WINEMAKER Work Phone: [facility] 10-17-2023 12:52-0400 Heart rate 89 /min Deysibelkis Robertsargenis CUTTER INSPECTOR - ASSISTANT WINEMAKER Work Phone: [facility] 10-17-2023 12:52-0400 SaO2% (BldA) [Mass fraction] 96 % Deysi Robertsargenis CUTTER INSPECTOR - ASSISTANT WINEMAKER Work Phone: [facility] 10-17-2023 12:52-0400 Systolic blood pressure 124 mm[Hg] Deysi Chikis CUTTER INSPECTOR - ASSISTANT WINEMAKER Work Phone: [facility] 05-05-2023 23:50-0500 Body temperature 98.24 [degF] DR HAFSA JOHNSON MD [facility] 05-05-2023 23:50-0500 Diastolic blood pressure 80 mm[Hg] DR HAFSA JOHNSON MD [facility] 05-05-2023 23:50-0500 Heart rate 94 /min DR HAFSA JOHNSON MD [facility] 05-05-2023 23:50-0500 Respiratory rate 18 /min DR HAFSA JOHNSON MD [facility] 05-05-2023 23:50-0500 Systolic blood pressure 167 mm[Hg] DR HAFSA JOHNSON MD [facility] 05-05-2023 21:02-0500 Body height 177.[address] HAFSA JOHNSON MD [facility] 05-05-2023 21:02-0500 Body temperature 98.42 [degF] DR HAFSA JOHNSON MD [facility] 05-05-2023 21:02-0500 Body weight 90.[address] HAFSA JOHNSON MD [facility] 05-05-2023 21:02-0500 Diastolic Blood Pressure Non-Invasive 102 mm[Hg] DR HAFSA JOHNSON MD [facility] 05-05-2023 21:02-0500 Heart rate 99 /min DR HAFSA JOHNSON MD [facility] 05-05-2023 21:02-0500 Respiratory rate 18 /min DR HAFSA JOHNSON MD [facility] 05-05-2023 21:02-0500 Systolic Blood Pressure Non-Invasive 164 mm[Hg] DR HAFSA JOHNSON MD [facility] 02-20-2023 14:13-0500 Body height 177.8 cm Melinda Bradshaw MD Work Phone: [facility] 02-20-2023 14:13-0500 Body mass index (BMI) [Ratio] 26.83 kg/m2 Melinda Bradshaw MD Work Phone: [facility] 02-20-2023 14:13-0500 Body weight 84.82 kg Melinda Brdashaw MD Work Phone: [facility] 02-20-2023 14:13-0500 Diastolic blood pressure 88 mm[Hg] Melinda Bradshaw MD Work Phone: [facility] 02-20-2023 14:13-0500 Heart rate 69 /min Melinda Bradshaw MD Work Phone: [facility] 02-20-2023 14:13-0500 Systolic blood pressure 163 mm[Hg] Melinda Bradshaw MD Work Phone: [facility] 12-18-2022 15:50-0400 Body height 177.8 cm Halle Dale MD Work Phone: [facility] 12-18-2022 15:50-0400 Body temperature 98.1 [degF] Halle Dale MD Work Phone: [facility] 12-18-2022 15:50-0400 Body weight 81.6 kg Halle Dale MD Work Phone: [facility] 12-18-2022 15:50-0400 Diastolic blood pressure 64 mm[Hg] Halle Dale MD Work Phone: [facility] 12-18-2022 15:50-0400 Heart rate 118 /min Halle Dale MD Work Phone: [facility] 12-18-2022 15:50-0400 Respiratory rate 18 /min Halle Dale MD Work Phone: [facility] 12-18-2022 15:50-0400 SaO2% (BldA) [Mass fraction] 98 % Halle Dale MD Work Phone: [facility] 12-18-2022 15:50-0400 Systolic blood pressure 133 mm[Hg] Halle Dale MD Work Phone: [facility] 12-13-2022 10:39-0400 Body height 177.8 cm Nakul Gallegos MD Work Phone: [facility] 12-13-2022 10:39-0400 Body temperature 96.69 [degF] Nakul Gallegos MD Work Phone: [facility] 12-13-2022 10:39-0400 Diastolic blood pressure 76 mm[Hg] Nakul Gallegos MD Work Phone: [facility] 12-13-2022 10:39-0400 Heart rate 107 /min Nakul Gallegos MD Work Phone: [facility] 12-13-2022 10:39-0400 Respiratory rate 16 /min Nakul Gallegos MD Work Phone: [facility] 12-13-2022 10:39-0400 SaO2% (BldA) [Mass fraction] 88 % Nakul Gallegos MD Work Phone: [facility] 12-13-2022 10:39-0400 Systolic blood pressure 134 mm[Hg] Nakul Gallegos MD Work Phone: [facility] 11-26-2022 10:14-0400 Body height 177.8 cm Leslie Moon CUTTER INSPECTOR.ASSISTANT WINEMAKER Work Phone: [facility] 11-26-2022 10:14-0400 Body temperature 97.3 [degF] Leslie Cruzim CUTTER INSPECTOR.ASSISTANT WINEMAKER Work Phone: [facility] 11-26-2022 10:14-0400 Body weight 84.01 kg Leslie Sarai CUTTER INSPECTOR.ASSISTANT WINEMAKER Work Phone: [facility] 11-26-2022 10:14-0400 Diastolic blood pressure 71 mm[Hg] Leslie Sarai CUTTER INSPECTOR.ASSISTANT WINEMAKER Work Phone: [facility] 11-26-2022 10:14-0400 Heart rate 106 /min Leslie Cruzim CUTTER INSPECTOR.ASSISTANT WINEMAKER Work Phone: [facility] 11-26-2022 10:14-0400 Respiratory rate 18 /min Leslie Sarai CUTTER INSPECTOR.ASSISTANT WINEMAKER Work Phone: [facility] 11-26-2022 10:14-0400 SaO2% (BldA) [Mass fraction] 96 % Leslie Moon CUTTER INSPECTOR.ASSISTANT WINEMAKER Work Phone: [facility] 11-26-2022 10:14-0400 Systolic blood pressure 131 mm[Hg] Leslie Moon CUTTER INSPECTOR.ASSISTANT WINEMAKER Work Phone: [facility] 11-21-2022 08:38-0400 Body height 177.8 cm Ulises Richard DO Work Phone: [facility] 11-21-2022 08:38-0400 Body temperature 98.2 [degF] Ulises Richard DO Work Phone: [facility] 11-21-2022 08:38-0400 Body weight 84.37 kg Ulises Richard DO Work Phone: [facility] 11-21-2022 08:38-0400 Diastolic blood pressure 72 mm[Hg] Ulises Richard DO Work Phone: [facility] 11-21-2022 08:38-0400 Heart rate 92 /min Ulises Richard DO Work Phone: [facility] 11-21-2022 08:38-0400 SaO2% (BldA) [Mass fraction] 95 % Ulises Richard DO Work Phone: [facility] 11-21-2022 08:38-0400 Systolic blood pressure 120 mm[Hg] Ulises Richard DO Work Phone: [facility] 11-19-2022 11:24-0400 Body height 177.8 cm Halle Dale MD Work Phone: [facility] 11-19-2022 11:24-0400 Body temperature 97.5 [degF] Halle Dale MD Work Phone: [facility] 11-19-2022 11:24-0400 Body weight 84.46 kg Halle Dale MD Work Phone: [facility] 11-19-2022 11:24-0400 Diastolic blood pressure 72 mm[Hg] Halle Dale MD Work Phone: [facility] 11-19-2022 11:24-0400 Heart rate 108 /min Halle Dale MD Work Phone: [facility] 11-19-2022 11:24-0400 Respiratory rate 18 /min Halle Dale MD Work Phone: [facility] 11-19-2022 11:24-0400 SaO2% (BldA) [Mass fraction] 96 % Halle Dale MD Work Phone: [facility] 11-19-2022 11:24-0400 Systolic blood pressure 144 mm[Hg] Halle Dale MD Work Phone: [facility] 10-17-2022 15:36-0400 Body temperature 98.1 [degF] Ulises Richard DO Work Phone: [facility] 10-17-2022 15:36-0400 Body weight 89.27 kg Ulises Richard DO Work Phone: [facility] 10-17-2022 15:36-0400 Diastolic blood pressure 90 mm[Hg] Ulises Richard DO Work Phone: [facility] 10-17-2022 15:36-0400 Heart rate 85 /min Ulises Richard DO Work Phone: [facility] 10-17-2022 15:36-0400 Respiratory rate 16 /min Ulises Richard DO Work Phone: [facility] 10-17-2022 15:36-0400 SaO2% (BldA) [Mass fraction] 98 % Ulises Richard DO Work Phone: [facility] 10-17-2022 15:36-0400 Systolic blood pressure 140 mm[Hg] Ulises Richard DO Work Phone: [facility] 10-16-2022 11:43-0400 Body height 177.8 cm Halle Dale MD Work Phone: [facility] 10-16-2022 11:43-0400 Body temperature 98.29 [degF] Halle Dale MD Work Phone: [facility] 10-16-2022 11:43-0400 Body weight 88.91 kg Halle Dale MD Work Phone: [facility] 10-16-2022 11:43-0400 Diastolic blood pressure 71 mm[Hg] Halle Dale MD Work Phone: [facility] 10-16-2022 11:43-0400 Heart rate 120 /min Halle Dale MD Work Phone: [facility] 10-16-2022 11:43-0400 Respiratory rate 16 /min Halle Dale MD Work Phone: [facility] 10-16-2022 11:43-0400 SaO2% (BldA) [Mass fraction] 99 % Halle Dale MD Work Phone: [facility] 10-16-2022 11:43-0400 Systolic blood pressure 145 mm[Hg] Halle Dale MD Work Phone: [facility] 10-10-2022 10:19-0400 Body temperature 97.9 [degF] Chair Keller Work Phone: [facility] 10-10-2022 10:19-0400 Diastolic blood pressure 64 mm[Hg] Chair Keller Work Phone: [facility] 10-10-2022 10:19-0400 Heart rate 97 /min Chair Keller Work Phone: [facility] 10-10-2022 10:19-0400 Respiratory rate 18 /min Chair Keller Work Phone: [facility] 10-10-2022 10:19-0400 Systolic blood pressure 159 mm[Hg] Chair Keller Work Phone: [facility] 10-09-2022 19:50-0400 Diastolic blood pressure 100 mm[Hg] Q3r6 Work Phone: [facility] 10-09-2022 19:50-0400 Heart rate 79 /min Q3r6 Work Phone: [facility] 10-09-2022 19:50-0400 Respiratory rate 16 /min Q3r6 Work Phone: [facility] 10-09-2022 19:50-0400 SaO2% (BldA) [Mass fraction] 97 % Q3r6 Work Phone: [facility] 10-09-2022 19:50-0400 Systolic blood pressure 179 mm[Hg] Q3r6 Work Phone: [facility] 10-09-2022 15:43-0400 Body height 177.8 cm Q3r6 Work Phone: [facility] 10-09-2022 15:43-0400 Body temperature 96.8 [degF] Q3r6 Work Phone: [facility] 10-09-2022 15:43-0400 Body weight 90.72 kg Q3r6 Work Phone: [facility] 08-28-2022 15:45-0400 Body temperature 98.1 [degF] Chair Bath Work Phone: [facility] 08-28-2022 15:45-0400 Diastolic blood pressure 82 mm[Hg] Chair Bath Work Phone: [facility] 08-28-2022 15:45-0400 Heart rate 68 /min Chair Bath Work Phone: [facility] 08-28-2022 15:45-0400 Respiratory rate 18 /min Chair Bath Work Phone: [facility] 08-28-2022 15:45-0400 Systolic blood pressure 163 mm[Hg] Chair Bath Work Phone: [facility] 08-20-2022 10:32-0400 Body height 177.8 cm Halle Dale MD Work Phone: [facility] 08-20-2022 10:32-0400 Body temperature 98.2 [degF] Halle Dale MD Work Phone: [facility] 08-20-2022 10:32-0400 Body weight 95.25 kg Halle Dale MD Work Phone: [facility] 08-20-2022 10:32-0400 Diastolic blood pressure 71 mm[Hg] Halle Dale MD Work Phone: [facility] 08-20-2022 10:32-0400 Heart rate 87 /min Halle Dale MD Work Phone: [facility] 08-20-2022 10:32-0400 Respiratory rate 18 /min Halle Dale MD Work Phone: [facility] 08-20-2022 10:32-0400 SaO2% (BldA) [Mass fraction] 98 % Halle Dale MD Work Phone: [facility] 08-20-2022 10:32-0400 Systolic blood pressure 154 mm[Hg] Halle Dale MD Work Phone: [facility] 07-15-2022 10:06-0400 Body height 177.8 cm Sean Mays MD Work Phone: [facility] 07-15-2022 10:06-0400 Body weight 90.72 kg Sean Mays MD Work Phone: [facility] 07-15-2022 10:06-0400 Diastolic blood pressure 74 mm[Hg] Sean Mays MD Work Phone: [facility] 07-15-2022 10:06-0400 Heart rate 118 /min Sean Mays MD Work Phone: [facility] 07-15-2022 10:06-0400 Respiratory rate 18 /min Sean Mays MD Work Phone: [facility] 07-15-2022 10:06-0400 SaO2% (BldA) [Mass fraction] 97 % Sean Mays MD Work Phone: [facility] 07-15-2022 10:06-0400 Systolic blood pressure 148 mm[Hg] Sean Mays MD Work Phone: [facility] 07-11-2022 09:56-0400 Body height 177.8 cm Ulises Ramos DO Work Phone: [facility] 07-11-2022 09:56-0400 Body temperature 97.81 [degF] Ulises Richard DO Work Phone: [facility] 07-11-2022 09:56-0400 Body weight 92.94 kg Ulises Richard DO Work Phone: [facility] 07-11-2022 09:56-0400 Diastolic blood pressure 93 mm[Hg] Ulises Richard DO Work Phone: [facility] 07-11-2022 09:56-0400 Heart rate 89 /min Ulises Henryley DO Work Phone: [facility] 07-11-2022 09:56-0400 SaO2% (BldA) [Mass fraction] 97 % Ulises Henryley DO Work Phone: [facility] 07-11-2022 09:56-0400 Systolic blood pressure 163 mm[Hg] Ulises Henryley DO Work Phone: [facility] 07-02-2022 09:51-0400 Body temperature 97.5 [degF] Ulises Henryley DO Work Phone: [facility] 07-02-2022 09:51-0400 Body weight 92.31 kg Ulises Henryley DO Work Phone: [facility] 07-02-2022 09:51-0400 Diastolic blood pressure 90 mm[Hg] Ulises Henryley DO Work Phone: [facility] 07-02-2022 09:51-0400 Heart rate 105 /min Ulises Henryley DO Work Phone: [facility] 07-02-2022 09:51-0400 SaO2% (BldA) [Mass fraction] 93 % Ulises Henryley DO Work Phone: [facility] 07-02-2022 09:51-0400 Systolic blood pressure 144 mm[Hg] Ulises Ramos Work Phone: [facility] 06-21-2022 10:02-0500 Body temperature 97.9 [degF] Halle Dale MD Work Phone: [facility] 06-21-2022 10:02-0500 Body weight 94.35 kg Halle Dale MD Work Phone: [facility] 06-21-2022 10:02-0500 Diastolic blood pressure 82 mm[Hg] Halle Dale MD Work Phone: [facility] 06-21-2022 10:02-0500 Heart rate 87 /min Halle Dale MD Work Phone: [facility] 06-21-2022 10:02-0500 SaO2% (BldA) [Mass fraction] 96 % Halle Dale MD Work Phone: [facility] 06-21-2022 10:02-0500 Systolic blood pressure 174 mm[Hg] Halle Dale MD Work Phone: [facility] 06-11-2022 16:14-0500 Body height 177.8 cm Buffy Min MD Work Phone: [facility] 06-11-2022 16:14-0500 Body weight 90.72 kg Buffy Min MD Work Phone: [facility] 06-11-2022 16:14-0500 Diastolic blood pressure 97 mm[Hg] Buffy Min MD Work Phone: [facility] 06-11-2022 16:14-0500 Heart rate 92 /min Buffy Min MD Work Phone: [facility] 06-11-2022 16:14-0500 SaO2% (BldA) [Mass fraction] 95 % Buffy Min MD Work Phone: [facility] 06-11-2022 16:14-0500 Systolic blood pressure 187 mm[Hg] Buffy Min MD Work Phone: [facility] 06-05-2022 14:37-0500 Body height 177.8 cm Ulises Ramos DO Work Phone: [facility] 06-05-2022 14:37-0500 Body temperature 97.7 [degF] Ulises Ramos DO Work Phone: [facility] 06-05-2022 14:37-0500 Body weight 94.08 kg Ulises Ramos DO Work Phone: [facility] 06-05-2022 14:37-0500 Diastolic blood pressure 80 mm[Hg] Ulises Ramos DO Work Phone: [facility] 06-05-2022 14:37-0500 Heart rate 77 /min Ulises Ramos DO Work Phone: [facility] 06-05-2022 14:37-0500 SaO2% (BldA) [Mass fraction] 94 % Ulises Ramos DO Work Phone: [facility] 06-05-2022 14:37-0500 Systolic blood pressure 148 mm[Hg] Ulises Ramos DO Work Phone: [facility] 04-17-2022 11:19-0500 Diastolic blood pressure 78 mm[Hg] Annmarie Ronquillo PA-C Work Phone: [facility] 04-17-2022 11:19-0500 Systolic blood pressure 158 mm[Hg] Annmarie Ronquillo PA-C Work Phone: [facility] 04-17-2022 11:00-0500 Body weight 91.22 kg Annmarie Ronquillo PA-C Work Phone: [facility] 04-17-2022 11:00-0500 Heart rate 78 /min Annmarie Ronquillo PA-C Work Phone: [facility] 04-17-2022 11:00-0500 SaO2% (BldA) [Mass fraction] 97 % Annmarie Ronquillo PA-C Work Phone: [facility] 03-22-2022 09:42-0500 Body height 177.8 cm Halle Dale MD Work Phone: [facility] 03-22-2022 09:42-0500 Body temperature 96.91 [degF] Halle Dale MD Work Phone: [facility] 03-22-2022 09:42-0500 Body weight 91.63 kg Halle Dale MD Work Phone: [facility] 03-22-2022 09:42-0500 Diastolic blood pressure 100 mm[Hg] Halle Dale MD Work Phone: [facility] 03-22-2022 09:42-0500 Heart rate 88 /min Halle Dale MD Work Phone: [facility] 03-22-2022 09:42-0500 Respiratory rate 22 /min Halle Dale MD Work Phone: [facility] 03-22-2022 09:42-0500 SaO2% (BldA) [Mass fraction] 97 % Halle Dale MD Work Phone: [facility] 03-22-2022 09:42-0500 Systolic blood pressure 149 mm[Hg] Halle Dale MD Work Phone: [facility] 03-21-2022 15:07-0500 Diastolic blood pressure 63 mm[Hg] [facility] 03-21-2022 15:07-0500 Heart rate 78 /min [facility] 03-21-2022 15:07-0500 Systolic blood pressure 140 mm[Hg] [facility] 03-21-2022 15:06-0500 Respiratory rate 18 /min [facility] 03-18-2022 15:15-0500 Body temperature 97.3 [degF] [facility] 03-18-2022 15:15-0500 Diastolic blood pressure 80 mm[Hg] [facility] 03-18-2022 15:15-0500 Heart rate 78 /min [facility] 03-18-2022 15:15-0500 Respiratory rate 18 /min [facility] 03-18-2022 15:15-0500 Systolic blood pressure 142 mm[Hg] [facility] 03-13-2022 14:18-0500 Body weight 90.72 kg [facility] 03-13-2022 14:18-0500 Diastolic blood pressure 80 mm[Hg] [facility] 03-13-2022 14:18-0500 Heart rate 72 /min [facility] 03-13-2022 14:18-0500 Respiratory rate 18 /min [facility] 03-13-2022 14:18-0500 SaO2% (BldA) [Mass fraction] 96 % [facility] 03-13-2022 14:18-0500 Systolic blood pressure 163 mm[Hg] [facility] 03-04-2022 14:55-0500 Diastolic blood pressure 58 mm[Hg] [facility] 03-04-2022 14:55-0500 Heart rate 76 /min [facility] 03-04-2022 14:55-0500 Respiratory rate 18 /min [facility] 03-04-2022 14:55-0500 Systolic blood pressure 163 mm[Hg] [facility] 03-04-2022 13:51-0500 Body temperature 97.9 [degF] [facility] 02-26-2022 15:20-0500 Diastolic blood pressure 85 mm[Hg] [facility] 02-26-2022 15:20-0500 Heart rate 76 /min [facility] 02-26-2022 15:20-0500 Respiratory rate 18 /min [facility] 02-26-2022 15:20-0500 Systolic blood pressure 173 mm[Hg] [facility] 02-26-2022 14:11-0500 Body weight 88.95 kg [facility] 01-17-2022 14:58-0400 Body height 177.8 cm Loy Mcallister MD Work Phone: [facility] 01-17-2022 14:58-0400 Heart rate 97 /min Loy Mcallister MD Work Phone: [facility] 01-17-2022 14:58-0400 SaO2% (BldA) [Mass fraction] 98 % Loy Mcallister MD Work Phone: [facility] 12-03-2021 14:05-0400 Body temperature 97.5 [degF] Ulises Richard DO Work Phone: [facility] 12-03-2021 14:05-0400 Body weight 91.67 kg Ulises Richard DO Work Phone: [facility] 12-03-2021 14:05-0400 Diastolic blood pressure 78 mm[Hg] Ulises Richard DO Work Phone: [facility] 12-03-2021 14:05-0400 Heart rate 86 /min Ulises Richard DO Work Phone: [facility] 12-03-2021 14:05-0400 SaO2% (BldA) [Mass fraction] 97 % Ulises Richard DO Work Phone: [facility] 12-03-2021 14:05-0400 Systolic blood pressure 136 mm[Hg] Ulises Richard DO Work Phone: [facility] 10-22-2021 14:17-0400 Body temperature 98.6 [degF] Ulises Richard DO Work Phone: [facility] 10-22-2021 14:17-0400 Body weight 92.49 kg Ulises Richard DO Work Phone: [facility] 10-22-2021 14:17-0400 Diastolic blood pressure 62 mm[Hg] Ulises Richard DO Work Phone: [facility] 10-22-2021 14:17-0400 Systolic blood pressure 118 mm[Hg] Ulises Richard DO Work Phone: [facility] 10-02-2021 13:12-0400 Body height 177.8 cm Melissa Raymond CUTTER INSPECTOR.ASSISTANT WINEMAKER Work Phone: [facility] 10-02-2021 13:12-0400 Body weight 91.49 kg Melissa Raymond CUTTER INSPECTOR.ASSISTANT WINEMAKER Work Phone: [facility] 10-02-2021 13:12-0400 Diastolic blood pressure 72 mm[Hg] Melissa Raymond CUTTER INSPECTOR.ASSISTANT WINEMAKER Work Phone: [facility] 10-02-2021 13:12-0400 Heart rate 83 /min Melissa Raymond CUTTER INSPECTOR.ASSISTANT WINEMAKER Work Phone: [facility] 10-02-2021 13:12-0400 Respiratory rate 18 /min Melissa Raymond CUTTER INSPECTOR.ASSISTANT WINEMAKER Work Phone: [facility] 10-02-2021 13:12-0400 SaO2% (BldA) [Mass fraction] 97 % Melissa Raymond CUTTER INSPECTOR.ASSISTANT WINEMAKER Work Phone: [facility] 10-02-2021 13:12-0400 Systolic blood pressure 116 mm[Hg] Melissa Raymond CUTTER INSPECTOR.ASSISTANT WINEMAKER Work Phone: [facility] 09-19-2021 10:59-0400 Body temperature 98.6 [degF] Halle Dale MD Work Phone: [facility] 09-19-2021 10:59-0400 Body weight 93.44 kg Halle Dale MD Work Phone: [facility] 09-19-2021 10:59-0400 Diastolic blood pressure 78 mm[Hg] Halle Dale MD Work Phone: [facility] 09-19-2021 10:59-0400 Heart rate 79 /min Halle Dale MD Work Phone: [facility] 09-19-2021 10:59-0400 SaO2% (BldA) [Mass fraction] 96 % Halle Dale MD Work Phone: [facility] 09-19-2021 10:59-0400 Systolic blood pressure 128 mm[Hg] Halle Dale MD Work Phone: [facility] 09-12-2021 10:47-0400 Body temperature 97.5 [degF] Ulises Ramos DO Work Phone: [facility] 09-12-2021 10:47-0400 Body weight 94.8 kg Ulises Ramos DO Work Phone: [facility] 09-12-2021 10:47-0400 Diastolic blood pressure 72 mm[Hg] Ulises Henryley DO Work Phone: [facility] 09-12-2021 10:47-0400 Heart rate 87 /min Ulises Henryley DO Work Phone: [facility] 09-12-2021 10:47-0400 SaO2% (BldA) [Mass fraction] 98 % Ulises Ramos DO Work Phone: [facility] 09-12-2021 10:47-0400 Systolic blood pressure 118 mm[Hg] Ulises Ramos DO Work Phone: [facility] 07-18-2021 13:51-0400 Diastolic blood pressure 90 mm[Hg] Loy Mcallister MD Work Phone: [facility] 07-18-2021 13:51-0400 Heart rate 90 /min Loy Mcallister MD Work Phone: [facility] 07-18-2021 13:51-0400 SaO2% (BldA) [Mass fraction] 95 % Loy Mcallister MD Work Phone: [facility] 07-18-2021 13:51-0400 Systolic blood pressure 140 mm[Hg] Loy Mcallister MD Work Phone: [facility] Encounters Encounter Date Encounter Type Care Provider Facility Start: 10-18-2024 ambulatory Leighton Chi Ernesto Facility:[facility] Start: 10-13-2024 ambulatory Leighton Chi Ernesto Facility:[facility] Start: 10-12-2024 ambulatory Leighton Chi Ernesto Facility:[facility] Start: 10-06-2024 End: 10-07-2024 ambulatory Leighton Chi Ernesto Facility:[facility] Start: 09-24-2024 ambulatory Leighton Chi Ernesto Facility:[facility] Start: 09-17-2024 End: 09-17-2024 ambulatory Leighton Chi Ernesto Facility:[facility] Start: 08-27-2024 End: 08-27-2024 ambulatory Leighton Chi Ernesto Facility:[facility] Start: 08-05-2024 End: 08-05-2024 ambulatory Leighton Chi Ernesto Facility:[facility] Start: 07-29-2024 End: 07-29-2024 ambulatory Leighton Chi Ernesto Facility:[facility] Start: 07-26-2024 End: 07-26-2024 ambulatory Leighton Chi Ernesto Facility:[facility] Start: 07-20-2024 End: 07-20-2024 ambulatory Leighton Chi Ernesto Facility:[facility] Start: 07-13-2024 ambulatory Leighton Chi Ernesto Facility:[facility] Start: 06-16-2024 End: 06-16-2024 ambulatory Leighton Chi Ernesto Facility:[facility] Start: 06-14-2024 End: 06-14-2024 ambulatory Leighton Chi Ernesto Facility:[facility] Start: 06-03-2024 ambulatory Leighton Chi Ernesto Facility:[facility] Start: 06-03-2024 End: 06-03-2024 ambulatory Leighton Chi Ernesto Facility:[facility] Start: 06-02-2024 End: 06-02-2024 ambulatory Leighton Chi Ernesto Facility:[facility] Start: 05-26-2024 ambulatory Leighton Chi Ernesto Facility:[facility] Start: 05-26-2024 End: 07-15-2024 Evaluation and management of inpatient Leighton Chi Ernesto Facility:[facility] Start: 05-23-2024 End: 05-26-2024 Evaluation and management of inpatient REJI STEEN MD [facility] Start: 05-20-2024 End: 05-20-2024 ambulatory Leighton Chi Ernesto Facility:[facility] Start: 05-20-2024 End: 05-20-2024 ambulatory Vincent Jabour Facility:[facility] Start: 05-19-2024 End: 05-19-2024 ambulatory Vincent bour Facility:[facility] Start: 05-13-2024 End: 05-13-2024 ambulatory Leighton Chi Ernesto Facility:[facility] Start: 05-11-2024 End: 05-11-2024 ambulatory Zaira Denis Facility:[facility] Start: 05-07-2024 End: 05-07-2024 ambulatory Leighton Chi Ernesto Facility:[facility] Start: 05-06-2024 End: 05-06-2024 ambulatory Jocelyne Rodriguez Facility:[facility] Start: 05-05-2024 End: 05-05-2024 ambulatory Idris Guzman Facility:[facility] Start: 05-02-2024 End: 05-03-2024 Evaluation and management of inpatient THERESA MARIA D SIERRA [facility] Start: 05-01-2024 End: 05-02-2024 Emergency department patient visit DIMITRY JIMENES MD [facility] Start: 04-27-2024 End: 04-27-2024 ambulatory Leighton Chi Ernesto Facility:[facility] Start: 04-19-2024 ambulatory Leihgton Chi Ernesto Facility:[facility] Start: 04-16-2024 End: 04-16-2024 ambulatory Leighton Chi Ernesto Facility:[facility] Start: 04-16-2024 End: 04-16-2024 ambulatory Leighton Chi Ernesto Facility:[facility] Start: 03-26-2024 End: 03-26-2024 ambulatory Leighton Chi Ernesto Facility:[facility] Start: 03-19-2024 ambulatory Leighton Chi Ernesto Facility:[facility] Start: 03-17-2024 ambulatory Leighton Chi Ernesto Facility:[facility] Start: 03-17-2024 ambulatory Leighton Chi Ernesto Facility:[facility] Start: 03-17-2024 End: 03-20-2024 Evaluation and management of inpatient Leightno Chi Ernesto Facility:[facility] Start: 03-17-2024 End: 03-17-2024 ambulatory Leighton Chi Ernesto Facility:[facility] Start: 02-27-2024 End: 02-27-2024 ambulatory Leighton Chi Ernesto Facility:[facility] Start: 02-25-2024 Encounter for other preprocedural examination Quentin Boyer [facility] Start: 02-25-2024 ambulatory Leighton Chi Ernesto Facility:[facility] Start: 02-12-2024 End: 02-12-2024 ambulatory Leighton Chi Ernesto Facility:[facility] Start: 02-10-2024 End: 02-10-2024 ambulatory Leighton Chi Ernesto Facility:[facility] Start: 02-09-2024 End: 02-09-2024 ambulatory Leighton Chi Ernesto Facility:[facility] Start: 02-06-2024 End: 02-22-2024 Evaluation and management of inpatient Leighton Chi Ernesto Facility:[facility] Start: 02-03-2024 ambulatory Leighton Chi Ernesto Facility:[facility] Start: 02-03-2024 End: 02-06-2024 Evaluation and management of inpatient Leighton Chi Ernesto Facility:[facility] Start: 02-03-2024 ambulatory Leighton Chi Ernesto Facility:[facility] Start: 01-28-2024 ambulatory Leighton Chi Ernesto Facility:[facility] Start: 01-22-2024 End: 01-22-2024 ambulatory Leighton Chi Ernesto Facility:[facility] Start: 01-17-2024 End: 01-17-2024 ambulatory Leighton Chi Ernesto Facility:[facility] Start: 01-16-2024 End: 01-16-2024 Emergency department patient visit Leighton Chi Ernesto Facility:[facility] Start: 01-12-2024 End: 01-12-2024 Emergency department patient visit Leighton Chi Ernesto Facility:[facility] Start: 01-12-2024 End: 01-12-2024 ambulatory Leighton Chi Ernesto Facility:[facility] Start: 01-12-2024 End: 01-12-2024 ambulatory Leighton Chi Ernesto Facility:[facility] Start: 01-01-2024 End: 01-01-2024 ambulatory Leighton Chi Ernesto Facility:[facility] Start: 01-01-2024 End: 01-01-2024 ambulatory Heaven Shelley TAIL EDGER Work Phone: [facility] Comment on above: Impaired functional mobility, balance, gait, and endurance (Primary Dx); Acute midline low back pain without sciatica; Physical deconditioning; Muscular deconditioning Start: 12-24-2023 End: 12-25-2023 ambulatory Андрей Mon PT Work Phone: [facility] Comment on above: Impaired functional mobility, balance, gait, and endurance (Primary Dx) Start: 12-17-2023 End: 12-17-2023 ambulatory Leighton Chi Ernseto Facility:[facility] Start: 12-10-2023 End: 12-10-2023 ambulatory Leighton Chi Ernesto Facility:[facility] Start: 12-04-2023 End: 12-05-2023 ambulatory Wilton Palma RN Meter Reader Inspector Management Comment on above: Community Monitoring Outreach Start: 11-22-2023 Refill Jocelyne Jamel DARDENASSISTANT WINEMAKER Work Phone: [facility] Comment on above: Refill Request Start: 11-21-2023 End: 11-21-2023 ambulatory Leighton Chi Ernesto Facility:[facility] Start: 11-20-2023 End: 11-20-2023 ambulatory Андрей Mon PT Work Phone: [facility] Comment on above: Impaired functional [...] 11-07-2023 End: 11-07-2023 ambulatory Leighton Chi Ernesto Facility:[facility] Start: 11-05-2023 End: 11-05-2023 ambulatory Monisha Edmonds Facility:[facility] Start: 11-03-2023 ambulatory Monisha Edmonds [facility] Start: 11-03-2023 End: 11-15-2023 Evaluation and management of inpatient Leighton Chi Ernesto Facility:[facility] Start: 11-03-2023 End: 11-03-2023 ambulatory Eric Oumar Facility:[facility] Start: 10-30-2023 End: 11-03-2023 Evaluation and management of inpatient Eric Oumar Facility:[facility] Start: 10-30-2023 ambulatory Manohar Au Facility:[facility] Start: 10-29-2023 ambulatory Tripp Rodriguez Facility:[facility] Start: 10-24-2023 ambulatory Wilton Beltre Staff ord fisheries managerMeter Reader Inspector Management Comment on above: Community Monitoring Outreach Start: 10-23-2023 End: 10-23-2023 ambulatory [facility] Ernesto Facility:[facility] Start: 10-20-2023 End: 10-20-2023 ambulatory [facility] Facility:[facility] Start: 10-17-2023 End: 10-17-2023 Office outpatient new 30 minutes Deysi Diop CUTTER INSPECTOR - ASSISTANT WINEMAKER Work Phone: [facility] Comment on above: [...] Start: 09-17-2023 ambulatory Wilton Beltre Staff ord fisheries managerMeter Reader Inspector Management Comment on above: Community Monitoring Outreach Start: 09-08-2023 Refill Jocelyne Mccullough APRN.ASSISTANT WINEMAKER Work Phone: [facility] Comment on above: Refill Request Start: 08-15-2023 End: 08-15-2023 Emergency department patient visit [facility]ES [facility] Start: 08-11-2023 ambulatory Wilton Beltre Staff ord fisheries managerMeter Reader Inspector Management Comment on above: Community Monitoring Outreach Start: 07-25-2023 Telephone encounter Barrett jackson MD Work Phone: [facility] Cardiology [place] Start: 07-17-2023 Refill Ulises ortega DO Work Phone: [facility] Comment on above: Refill Request Start: 07-17-2023 End: 07-17-2023 ambulatory Андрей Mon PT Work Phone: [facility] Comment on above: Acute midline low ba ck pain without sciatica (Primary Dx) Start: 07-15-2023 End: 07-15-2023 ambulatory Kaleigh Mueller TAIL EDGER Work Phone: [facility] Comment on above: Physical decondition ing (Primary Dx) Start: 07-11-2023 End: 07-11-2023 ambulatory PANTERA STEINER Facility:[facility] Start: 07-03-2023 End: 07-03-2023 ambulatory Pantera Steiner PT Work Phone: [facility] Comment on above: Physical decondition ing (Primary Dx); Acute midline low back pain without sciatica; Impaired functional mobility, balance, gait, and endurance Start: 07-01-2023 End: 07-01-2023 ambulatory Kaleigh Mueller TAIL EDGER Work Phone: [facility] Comment on above: Physical decondition ing (Primary Dx) Start: 06-26-2023 End: 06-26-2023 ambulatory Eileen Medrano TAIL EDGER Work Phone: [facility] Comment on above: Physical decondition ing (Primary Dx) Start: 06-20-2023 End: 06-20-2023 ambulatory Pantera Steiner PT Work Phone: [facility] Comment on above: Physical decondition ing (Primary Dx); Acute midline low back pain without sciatica Start: 06-09-2023 End: 06-09-2023 ambulatory ULISES RAMOS [facility] Start: 06-05-2023 End: 06-05-2023 ambulatory Eileen Medrano TAIL EDGER Work Phone: [facility] Comment on above: Physical decondition ing (Primary Dx) Start: 06-02-2023 End: 06-02-2023 ambulatory Eileen Medrano TAIL EDGER Work Phone: [facility] Comment on above: Physical decondition ing (Primary Dx) Start: 05-30-2023 End: 05-30-2023 ambulatory Heaven Shelley TAIL EDGER Work Phone: [facility] Comment on above: Physical decondition ing (Primary Dx); Acute midline low back pain without sciatica; Impaired functional mobility, balance, gait, and endurance Start: 05-28-2023 End: 05-28-2023 ambulatory Kaleigh Mueller TAIL EDGER Work Phone: [facility] Comment on above: Physical decondition ing (Primary Dx) Start: 05-27-2023 ambulatory Wilton Beltre Staff ord fisheries managerMeter Reader Inspector Management Comment on above: Community Monitoring Outreach Start: 05-16-2023 End: 05-16-2023 ambulatory Pantera Steiner PT Work Phone: [facility] Comment on above: Acute midline low ba ck pain without sciatica (Primary Dx); Physical deconditioning Start: 05-05-2023 End: 05-06-2023 Emergency department patient visit DR HAFSA JOHNSON MD Facility:B Start: 05-05-2023 End: 05-05-2023 Emergency department patient visit DR HAFSA JOHNSON MD [facility] Start: 03-12-2023 ambulatory Wilton Beltre Staff ord fisheries managerMeter Reader Inspector Management Comment on above: Community Monitoring Outreach Start: 02-20-2023 End: 02-20-2023 ambulatory [facility] Start: 02-20-2023 End: 02-20-2023 Office outpatient new 45 minutes Melinda Bradshaw MD Work Phone: [facility] Comment on above: Atrial fibrillation, unspecified type (CMS/HCC) (Primary Dx) Start: 01-21-2023 Telephone encounter Nakul Khalil MD Work Phone: [facility] Comment on above: Appointment (Fyi- ca lled patient to schedule his follow up appt. Pt declined and states he is no longer following up with [facility] providers-jj) Start: 01-17-2023 Telephone encounter Ulises Ramos DO Work Phone: [facility] [place] Comment on above: Release Of Medical R ecords (Adult geriatrics [facility]) Start: 01-15-2023 ambulatory Wilton dick fisheries managerMeter Reader Inspector Management Comment on above: Community Monitoring Outreach Start: 01-10-2023 Telephone encounter Halle Haro Work Phone: [facility] Start: 01-03-2023 Telephone encounter Halle Haro Work Phone: [facility] Start: 01-01-2023 ambulatory Maddie White RN [facility] Start: 01-01-2023 Follow-up encounter Maddie White RN Meter Reader Inspector Management Comment on above: Transition Of Care ( TCM follow-up) Start: 12-30-2022 Telephone encounter Jenifer bell LPN Work Phone: [facility] Comment on above: Home Care Start: 12-27-2022 Telephone encounter Iona lockhart Work Phone: [facility] Comment on above: Home Care (Confirmat ion Call ) Start: 12-24-2022 Telephone encounter Marley galan RD Work Phone: Hematology/Oncology Comment on above: Nutrition Counseling (Weight Loss) Start: 12-20-2022 Telephone encounter Halle Haro Work Phone: [facility] Comment on above: Home Care Start: 12-19-2022 End: 12-26-2022 Evaluation and management of inpatient SERENE CAST DO~[id number] [facility] Start: 12-19-2022 Telephone encounter Loy Mcallister MD Work Phone: Urology Comment on above: Results Returning Patient's Call Orders Start: 12-19-2022 End: 12-19-2022 Emergency department patient visit ULISES RAMOS DO Facility:B Start: 12-18-2022 End: 12-18-2022 ambulatory Halle Dale MD Work Phone: [facility] Hematology/Oncology Comment on above: CLL (chronic lymphoc ytic leukemia) (HCC) (Primary Dx); Essential thrombocythemia (HCC) Start: 12-18-2022 End: 12-18-2022 Patient encounter procedure Halle Dale MD Work Phone: [facility] Start: 12-13-2022 End: 12-13-2022 Office outpatient new 60 minutes Nakul Gallegos MD Work Phone: Pulmonary Medicine Comment on above: CIRA on CPAP (Primary Dx); Primary insomnia; Severe muscle deconditioning Start: 12-13-2022 End: 12-13-2022 ambulatory NAKUL GALLEGOS Facility:[facility] Start: 12-12-2022 Telephone encounter Ulises Ramos DO Work Phone: [facility] [place] Start: 12-09-2022 End: 12-09-2022 [facility] Yoselin Dobbs PhD Work Phone: [facility] Hematology & Oncology Comment on above: 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) Start: 12-03-2022 Telephone encounter Ulises Ramos DO Work Phone: [facility] Comment on above: Patient Update Start: 11-29-2022 Telephone encounter Halle Haro Work Phone: [facility] Comment on above: Symptoms Start: 11-28-2022 ambulatory Ulises ortega DO Work Phone: [facility] Comment on above: Patient Question; Pa tient Update; Shortness of Breath Start: 11-27-2022 ambulatory Macie Payne Compa CUTTER INSPECTOR.ASSISTANT WINEMAKER Work Phone: [facility] Comment on above: Iron deficiency anem ia due to chronic blood loss (Primary Dx); SOB (shortness of breath); Lightheadedness Start: 11-27-2022 Telemedicine consult ation with patient Macie Payne Compa CUTTER INSPECTOR.ASSISTANT WINEMAKER Work Phone: [facility] Start: 11-27-2022 Telephone encounter Halle Haro Work Phone: [facility] Comment on above: Results Start: 11-26-2022 End: 11-26-2022 ambulatory Leslie Moon CUTTER INSPECTOR.ASSISTANT WINEMAKER Work Phone: [facility] Hematology/Oncology Comment on above: CT chest Essential thrombocyt hemia (HCC) (Primary Dx); CLL (chronic lymphocytic leukemia) (HCC) Start: 11-26-2022 E-mail encounter fro m caregiver Leslie Moon LARS.ASSISTANT WINEMAKER Work Phone: [facility] Start: 11-26-2022 End: 11-26-2022 Patient encounter procedure Leslie Beltre Sarai CUTTER INSPECTOR.ASSISTANT WINEMAKER Work Phone: [facility] Start: 11-25-2022 Telephone encounter Halle Haro Work Phone: [facility] Hematology/Oncology Comment on above: Appointment (Psychol ogy (new patient exam) with Dr Yoselin Dobbs 12/09/22, CT Chest 02/24/23, Follow up OV 03/05. Pt notified) Start: 11-22-2022 Refill Halle Dale MD Work Phone: [facility] Hematology/Oncology Comment on above: Refill Request Start: 11-21-2022 Telephone encounter Ulises Ramos DO Work Phone: [facility] Comment on above: Insurance Authorizat ion (PROVIGIL) Start: 11-21-2022 End: 11-21-2022 Patient encounter procedure Ulises Ramos DO Work Phone: [facility] Comment on above: CIRA (obstructive sle ep apnea) (Primary Dx); Deep vein thrombosis (DVT) of femoral vein of left lower extremity, unspecified chronicity (HCC); Essential thrombocythemia (HCC); CLL (chronic lymphocytic leukemia) (HCC) Start: 11-19-2022 End: 11-19-2022 ambulatory Halle Dale MD Work Phone: [facility] Hematology/Oncology Comment on above: Essential thrombocyt hemia (HCC) (Primary Dx); Renal cancer, right (HCC) Start: 11-19-2022 End: 11-19-2022 Patient encounter procedure Halle Dale MD Work Phone: [facility] Start: 11-18-2022 End: 11-19-2022 ambulatory ULISES RAMOS [place] [facility] Start: 11-18-2022 Telephone encounter Ulises Ramos DO [facility] Phone: [facility] Comment on above: Orders Start: 11-16-2022 Telephone encounter Bertha Chou MD Work Phone: [facility] Hematology/Oncology Comment on above: Patient Question Start: 11-15-2022 Telephone encounter Ulises Ramos DO Work Phone: [facility] Comment on above: Patient Request Refill Request Start: 11-12-2022 Telephone encounter Ulises Ramos DO Work Phone: [facility] Comment on above: Patient Update Results, Lab Start: 11-07-2022 Telephone encounter Ulises Ramos DO Work Phone: [facility] Comment on above: Patient Update; Resu lts, Lab Start: 11-06-2022 End: 11-07-2022 ambulatory ULISES Haro [facility] ital Start: 11-01-2022 Telephone encounter Bailey Hernandez [facility] Comment on above: Results (labs) Start: 10-24-2022 Orders Only Leslie Moon CUTTER INSPECTOR.ASSISTANT WINEMAKER Work Phone: [facility] Hematology/Oncology Comment on above: Essential thrombocyt hemia (HCC) (Primary Dx) Community Monitoring Outreach Start: 10-23-2022 Telephone encounter Halle Haro Work Phone: [facility] Hematology/Oncology Comment on above: Results Start: 10-22-2022 ambulatory Wilton dick fisheries managerMeter Reader Inspector Management Comment on above: Community Monitoring Outreach Start: 10-18-2022 Refill Halle Dale MD Work Phone: [facility] Hematology/Oncology Comment on above: Refill Request Start: 10-17-2022 End: 10-17-2022 Patient encounter procedure Ulises Ramos DO Work Phone: [facility] Comment on above: Deep vein thrombosis (DVT) of femoral vein of left lower extremity, unspecified chronicity (HCC) (Primary Dx) Start: 10-17-2022 End: 10-17-2022 Subsequent hospital visit by physician [place] [facility] Comment on above: Leg edema [R60.0] Start: 10-16-2022 Refill Ulises ortega DO Work Phone: [facility] Comment on above: Refill Request Start: 10-16-2022 End: 10-16-2022 ambulatory Halle Dale MD Work Phone: [facility] Hematology/Oncology Comment on above: Essential thrombocyt hemia (HCC) (Primary Dx); Leg edema; Other insomnia; Renal cancer, right (HCC); CLL (chronic lymphocytic leukemia) (HCC) Start: 10-16-2022 End: 10-16-2022 Patient encounter procedure Halle Dale MD Work Phone: [facility] Start: 10-10-2022 Telephone encounter Halle Haro Work Phone: [facility] Hematology/Oncology Comment on above: Question Patient Question Start: 10-10-2022 End: 10-10-2022 ambulatory Chair 9 [address] [place] Work Phone: Hematology/Oncology Comment on above: Stage [...] Telephone encounter Halle Haro Work Phone: [facility] Hematology/Oncology Comment on above: Results Start: 09-17-2022 Telephone encounter Halle Haro Work Phone: [facility] Hematology/Oncology Comment on above: Question Start: 09-16-2022 ambulatory Wilton dick fisheries managerMeter Reader Inspector Management Comment on above: Community Monitoring Outreach Start: 08-28-2022 End: 08-28-2022 ambulatory Chair 6 [facility] [place] Work Phone: Hematology/Oncology Comment on above: Acute blood loss ane magali (Primary Dx); Severe anemia; Stage 3 chronic kidney disease, unspecified whether stage 3a or 3b CKD (HCC); Other iron deficiency anemia Start: 08-27-2022 Orders Only Halle Dale MD Work Phone: [facility] Hematology/Oncology Comment on above: Iron deficiency anem ia due to chronic blood loss (Primary Dx) Start: 08-20-2022 End: 08-20-2022 ambulatory Halle Dale MD Work Phone: [facility] Hematology/Oncology Comment on above: Iron deficiency anem ia due to chronic blood loss (Primary Dx) Start: 08-20-2022 End: 08-20-2022 Patient encounter procedure Halle Dale MD Work Phone: [facility] Start: 08-15-2022 ambulatory Wilton dick fisheries managerMeter Reader Inspector Management Comment on above: Community Monitoring Outreach Start: 08-15-2022 Telephone encounter Ulises Ramos DO Work Phone: [facility] Comment on above: Results; Patient Upd ate Start: 08-13-2022 End: 08-13-2022 Subsequent hospital visit by physician [facility] [place] [facility] Comment on above: Chronic cough [R05.3 ] Start: 08-12-2022 Telephone encounter Halle Haro Work Phone: [facility] Hematology/Oncology Comment on above: Appointment Start: 08-07-2022 End: 08-07-2022 ambulatory Hortencia Gallardo MD Work Phone: Gastroenterology Comment on above: Gastrointestinal hem orrhage associated with angiodysplasia of stomach and duodenum (Primary Dx); Gastrointestinal hemorrhage, unspecified gastrointestinal hemorrhage type; Iron deficiency anemia due to chronic blood loss Start: 08-07-2022 End: 08-07-2022 Telemedicine consultation with patient Hortencia Gallardo MD Work Phone: [facility] Start: 08-05-2022 Telephone encounter Ulises Ramos DO Work Phone: [facility] Comment on above: Patient Question Start: 08-02-2022 Orders Only Halle Dale MD Work Phone: [facility] Hematology/Oncology Comment on above: Other insomnia (Prim erendira Dx); Renal cancer, right (HCC); Essential thrombocythemia (HCC) Start: 08-01-2022 Telephone encounter Ulises Ramos DO Work Phone: [facility] Comment on above: Consult Results Start: 07-26-2022 Telephone encounter Halle Haro Work Phone: [facility] Hematology/Oncology Comment on above: Refill Request Start: 07-25-2022 Telephone encounter Sean alston MD Work Phone: [facility] Cardiology [place] Comment on above: 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 - O ther (NIKOLAS Phillip) Referral Request Start: 07-22-2022 Refill Jocelyne Mccullough APRN.ASSISTANT WINEMAKER Work Phone: [facility] Comment on above: Refill Request Start: 07-22-2022 Telephone encounter Ulises Ramos DO Work Phone: [facility] Comment on above: Results Start: 07-18-2022 End: 07-18-2022 ambulatory Pulm [place] [facility]m [facility] Comment on above: COPD Start: 07-18-2022 End: 07-18-2022 Patient encounter procedure Pulm [facility]ct [facility] [place] [facility] Start: 07-18-2022 End: 07-18-2022 Subsequent hospital visit by physician [place] [id number] [facility] Comment on above: Iron deficiency anem ia due to chronic blood loss [D50.0] Start: 07-15-2022 End: 07-15-2022 Patient encounter procedure Sean Mays MD Work Phone: [facility] Cardiology [place] Comment on above: NSTEMI (non-ST eleva kali myocardial infarction) (HCC) (Primary Dx); Post PTCA; Mixed hyperlipidemia; Essential hypertension; Chronic kidney disease, unspecified CKD stage; Gastrointestinal hemorrhage associated with intestinal diverticulosis; CLL (chronic lymphocytic leukemia) (HCC); Personal history of DVT (deep vein thrombosis) Start: 07-11-2022 Telephone encounter Ulises Ramos DO Work Phone: [facility] [place] [employer] Comment on above: Orders Medication Question (Repatha directions) Care Coordination Start: 07-11-2022 End: 07-11-2022 Patient encounter procedure Ulises Olivier Richard DO Work Phone: [facility] [employer] Comment on above: Iron deficiency anem ia due to chronic blood loss (Primary Dx); Acute deep vein thrombosis (DVT) of popliteal vein of left lower extremity (HCC); Right calf pain Start: 07-04-2022 Telephone encounter Sean alston MD Work Phone: [facility] Cardiology [place] Comment on above: Results Patient Question Start: 07-04-2022 End: 07-04-2022 Subsequent hospital visit by physician [facility] [place] Comment on above: Deep vein thrombosis (DVT) of left lower extremity, unspecified chronicity, unspecified vein (HCC) [I82.402] Start: 07-02-2022 End: 07-02-2022 Patient encounter procedure Ulises Olivier Richard DO Work Phone: [facility] [place] [employer] Comment on above: Chronic obstructive pulmonary disease with acute exacerbation (HCC) (Primary Dx); Deep vein thrombosis (DVT) of left lower extremity, unspecified chronicity, unspecified vein (HCC); Localized swelling, mass and lump, left upper limb ; History of colonic polyps Start: 06-30-2022 Refill Halle Dale MD Work Phone: [facility] Hematology/Oncology Comment on above: Refill Request Start: 06-28-2022 Telephone encounter Ulises Ramos DO Work Phone: [facility] [place] [employer] Comment on above: Appointment Start: 06-26-2022 End: 06-26-2022 ambulatory Sia Hodge PT Work Phone: [facility] Comment on above: Physical decondition ing (Primary Dx); Impaired functional mobility, balance, gait, and endurance Start: 06-24-2022 End: 06-24-2022 ambulatory Kaleigh Mueller TAIL EDGER Work Phone: [facility] Comment on above: Physical decondition ing (Primary Dx) Community Monitoring Outreach Start: 06-21-2022 End: 06-21-2022 ambulatory Halle Dale MD Work Phone: [facility] Hematology/Oncology Comment on above: Essential thrombocyt hemia (HCC) (Primary Dx) Start: 06-21-2022 End: 06-21-2022 Patient encounter procedure Halle Dale MD Work Phone: [facility] Start: 06-19-2022 End: 06-19-2022 ambulatory Sia Hodge PT Work Phone: [facility] Comment on above: Physical decondition ing (Primary Dx); Impaired functional mobility, balance, gait, and endurance; Muscular deconditioning Start: 06-14-2022 Telephone encounter Ulises Ramos DO Work Phone: [facility] [place] Comment on above: Forms (Mon's) Start: 06-14-2022 End: 06-14-2022 ambulatory Sia Hodge PT Work Phone: [facility] Comment on above: Physical decondition ing (Primary Dx); Impaired functional mobility, balance, gait, and endurance; Muscular deconditioning Start: 06-12-2022 End: 06-12-2022 ambulatory Sia Hodge PT Work Phone: [facility] Comment on above: Physical decondition [...] 06-10-2022 Refill Ulises ortega DO Work Phone: [facility] Comment on above: Refill Request Start: 06-07-2022 End: 06-07-2022 ambulatory Sia Hodge PT Work Phone: [facility] Comment on above: Physical decondition ing (Primary Dx); Impaired functional mobility, balance, gait, and endurance; Muscular deconditioning Start: 06-05-2022 End: 06-05-2022 Patient encounter procedure Ulises Ramos DO Work Phone: [facility] [place] Comment on above: Bronchitis (Primary Dx) Start: 06-03-2022 End: 06-03-2022 ambulatory Sia Hodge PT Work Phone: [facility] Comment on above: Physical decondition ing (Primary Dx); Impaired functional mobility, balance, gait, and endurance Start: 05-31-2022 End: 05-31-2022 ambulatory Sia Hodge PT Work Phone: [facility] Comment on above: Physical decondition ing (Primary Dx) Start: 05-23-2022 ambulatory Wilton Beltre Staff ord fisheries managerMeter Reader Inspector Management Comment on above: Community Monitoring Outreach Start: 05-22-2022 Refill Halle Dale MD Work Phone: [facility] Hematology/Oncology Comment on above: Refill Request Start: 05-14-2022 Refill Lucrecia baptiste APRN.ASSISTANT WINEMAKER Work Phone: [facility] [place] Comment on above: Refill Request Start: 04-30-2022 Telephone encounter Hortencia fagan MD Work Phone: Gastroenterology Comment on above: Patient Question Start: 04-25-2022 Refill Halle Dale MD Work Phone: [facility] Hematology/Oncology Comment on above: Refill Request Start: 04-22-2022 Telephone encounter Vivian Galvin RN Work Phone: Gastroenterology Comment on above: voicemail Start: 04-18-2022 ambulatory Wilton Beltre Staff ord fisheries managerMeter Reader Inspector Management Comment on above: Community Monitoring Outreach Start: 04-17-2022 Telephone encounter Annmarie valdez PA-C Work Phone: [facility] [place] Comment on above: Orders; Results Start: 04-17-2022 End: 04-17-2022 Subsequent hospital visit by physician [facility] Comment on above: URI with cough and c ongestion [J06.9] Start: 04-17-2022 End: 04-17-2022 Patient encounter procedure Annmarie Sharma Shima SCHAEFER Work Phone: [facility] Comment on above: URI with cough and c ongestion (Primary Dx); Wheeze Start: 04-05-2022 Telephone encounter Hortencia fagan MD Work Phone: Gastroenterology Comment on above: PA for Octerotide-Sa ndostatin Start: 04-04-2022 Telephone encounter Halle Haro Work Phone: [facility] Hematology/Oncology Comment on above: Question Start: 04-03-2022 Refill Halle Dale MD Work Phone: [facility] Hematology/Oncology Comment on above: Refill Request Start: 04-03-2022 End: 04-03-2022 ambulatory Sia Hodge PT Work Phone: [facility] Comment on above: Impaired functional mobility, balance, gait, and endurance (Primary Dx); Muscular deconditioning Start: 03-27-2022 End: 03-27-2022 ambulatory Hortencia Gallardo MD Work Phone: Gastroenterology Comment on above: Iron deficiency anem ia due to chronic blood loss (Primary Dx) Start: 03-27-2022 End: 03-27-2022 Telemedicine consultation with patient Hortencia Gallardo MD Work Phone: [facility] Start: 03-25-2022 End: 03-25-2022 ambulatory Kaleigh Mueller TAIL EDGER Work Phone: [facility] Comment on above: Impaired functional mobility, balance, gait, and endurance (Primary Dx) Start: 03-22-2022 Refill Halle Dale MD Work Phone: [facility] Hematology/Oncology Comment on above: Refill Request Start: 03-22-2022 End: 03-22-2022 ambulatory Halle Dale MD Work Phone: [facility] Hematology/Oncology Comment on above: Essential thrombocyt hemia (HCC) Start: 03-22-2022 End: 03-22-2022 Patient encounter procedure Halle Dale MD Work Phone: [facility] Start: 03-21-2022 End: 03-21-2022 ambulatory Chair 2 [facility] Hematology/Oncology Comment on above: Iron deficiency anem ia due to chronic blood loss (Primary Dx); Other iron deficiency anemia; Gastroesophageal reflux disease, unspecified whether esophagitis present Start: 03-21-2022 Telephone encounter Loy Mcallister MD Work Phone: [facility] Comment on above: Results Start: 03-18-2022 End: 03-18-2022 ambulatory Chair 4 [facility] Hematology/Oncology Comment on above: Iron deficiency anem ia due to chronic blood loss (Primary Dx); Other iron deficiency anemia; Gastroesophageal reflux disease, unspecified whether esophagitis present Start: 03-15-2022 Refill Halle Dale MD Work Phone: [facility] Hematology/Oncology Comment on above: Refill Request Start: 03-14-2022 ambulatory Wilton M Staff ord fisheries managerMeter Reader Inspector Management Comment on above: Community Monitoring Outreach Start: 03-13-2022 End: 03-13-2022 ambulatory Chair 6 [facility] Hematology/Oncology Comment on above: Iron deficiency anem ia due to chronic blood loss (Primary Dx); Other iron deficiency anemia; Gastroesophageal reflux disease, unspecified whether esophagitis present Start: 03-04-2022 End: 03-04-2022 ambulatory Bed 1 [facility] Hematology/Oncology Comment on above: Iron deficiency anem ia due to chronic blood loss (Primary Dx); Other iron deficiency anemia; Gastroesophageal reflux disease, unspecified whether esophagitis present Start: 02-26-2022 End: 02-26-2022 ambulatory Bed 1 [facility] Hematology/Oncology Comment on above: Iron deficiency anem ia due to chronic blood loss (Primary Dx); Other iron deficiency anemia; Gastroesophageal reflux disease, unspecified whether esophagitis present Start: 02-20-2022 Telephone encounter Ulises Ramos DO Work Phone: [facility] Comment on above: Orders; Referral Inf ormation (PT) Start: 02-15-2022 Telephone encounter Loy Mcallister MD Work Phone: [facility] Comment on above: Appointment Start: 02-13-2022 Telephone encounter Halle Haro Work Phone: [facility] Comment on above: Question Start: 02-13-2022 End: 02-13-2022 Subsequent hospital visit by physician Us [place] [facility] Comment on above: N18.32 Start: 02-06-2022 ambulatory Louie Garg fisheries managerMeter Reader Inspector Management Comment on above: Community Monitoring Outreach Start: 01-23-2022 Telephone encounter Ulises Ramos DO Work Phone: [facility] Comment on above: Patient Question; Me dication Problem Start: 01-20-[address] Aleja Pollock [facility] Facility:[facility] Start: 01-17-2022 End: 01-17-2022 Patient encounter procedure Loy Mcallister MD Work Phone: Urology Comment on above: Renal cancer, right (HCC) (Primary Dx); Atypical small acinar proliferation of prostate; Elevated prostate specific antigen (PSA); Hydrocele in adult Start: 01-17-2022 Telephone encounter Loy Mcallister MD Work Phone: [facility] Comment on above: Additional Labs Start: 01-16-2022 ambulatory Ulises ortega DO Work Phone: [facility] Start: 01-16-2022 Follow-up encounter Ulises Ramos DO Work Phone: [facility] Comment on above: Visit Follow Up Ques tion Start: 12-26-2021 Telephone encounter Loy Mcallister MD Work Phone: [facility] Comment on above: Results (/) Start: 12-19-2021 ambulatory Louie Garg RN Meter Reader Inspector Management Comment on above: Community Monitoring Outreach Start: 12-18-2021 Refill Halle Dale MD Work Phone: [facility] Comment on above: Refill Request Start: 12-12-2021 End: 12-12-2021 ambulatory Wilbert Watkins MD Work Phone: Gastroenterology Comment on above: Iron deficiency anem ia due to chronic blood loss (Primary Dx) Start: 12-12-2021 End: 12-12-2021 Telemedicine consultation with patient Wilbert Watkins MD Work Phone: [facility] Start: 12-07-2021 End: 12-07-2021 ambulatory Sia Hodge PT Work Phone: [facility] Comment on above: Left hip pain (Prima ry Dx); Impaired functional mobility, balance, gait, and endurance Start: 12-04-2021 Telephone encounter Intestinal Trans Coord Main Work Phone: [facility] Comment on above: Referral - Liver Txp ; Referral Request Start: 12-03-2021 End: 12-03-2021 Patient encounter procedure Ulises Ramos DO Work Phone: [facility] [place] [employer] Comment on above: Chronic diarrhea (Pr imary Dx); Neck pain Start: 12-01-2021 End: 12-01-2021 ambulatory Sia Hodge PT Work Phone: [facility] Comment on above: Left hip pain (Prima ry Dx); Impaired functional mobility, balance, gait, and endurance Start: 11-22-2021 Refill Halle Dale MD Work Phone: [facility] Comment on above: Refill Request Start: 11-19-2021 Telephone encounter Halle Haro Work Phone: [facility] Comment on above: Question Start: 11-19-2021 End: 11-19-2021 ambulatory Kaleigh Mueller TAIL EDGER Work Phone: [facility] Comment on above: Left hip pain (Prima ry Dx) Start: 11-13-2021 ambulatory Louie Garg RN Amb[facility] Comment on above: Community Monitoring Outreach (CKD Telephonic CDM Outreach) Start: 11-12-2021 End: 11-12-2021 ambulatory Heaven Shelley TAIL EDGER Work Phone: [facility] Comment on above: Impaired functional mobility, balance, gait, and endurance (Primary Dx); Left hip pain Start: 11-07-2021 Telephone encounter Jorge Roman MD Work Phone: [facility] [place] Comment on above: Patient Question Start: 2021 ambulatory Louie Garg RN Ambulatory [facility] Comment on above: Community Monitoring Outreach Community Monitoring Outreach (CKD Telephnic CDM Outreach) Start: 2021 Refill Sean Mays MD Work Phone: [facility] [place] Comment on above: Refill Request Start: 10-25-2021 Telephone encounter Ulises Ramos DO Work Phone: [facility] [place] Comment on above: Results Start: 10-24-2021 Telephone encounter Halle Haro Work Phone: [facility] Hematology/Oncology Comment on above: Question Start: 10-24-2021 End: 10-24-2021 ambulatory Heaven Shelley TAIL EDGER Work Phone: [facility] Comment on above: Impaired functional mobility, balance, gait, and endurance (Primary Dx); Left hip pain; Chronic pain of left knee Start: 10-23-2021 Telephone encounter Ulises Ramos DO Work Phone: [facility] [place] Comment on above: Medication Question; Referral Information (sleep medicine) Start: 10-22-2021 End: 10-22-2021 Patient encounter procedure Ulises Ramos DO Work Phone: [facility] [place] Comment on above: Diarrhea, unspecifie d type (Primary Dx); Acute deep vein thrombosis (DVT) of left lower extremity, unspecified vein (HCC); Iron deficiency anemia due to chronic blood loss Start: 10-22-2021 End: 10-22-2021 ambulatory Heaven Shelley TAIL EDGER Work Phone: [facility] Comment on above: Impaired functional mobility, balance, gait, and endurance (Primary Dx); Left hip pain; Chronic pain of left knee Start: 10-21-2021 Refill Halle Dale MD Work Phone: [facility] Hematology/Oncology Comment on above: Refill Request Start: 10-18-2021 Refill Sean Mays MD Work Phone: [facility] Card[facility] [place] Comment on above: Refill Request Start: 10-18-2021 Telephone encounter Halle Haro Work Phone: [facility] Hematology/Oncology Comment on above: Question Start: 10-17-2021 Telephone encounter Halle Haro Work Phone: [facility] Hematology/Oncology Comment on above: Appointment (Having blood transfusion tomorrow. Can you put in orders. ) Start: 10-16-2021 Orders Only Halle Dale MD Work Phone: [facility] Hematology/Oncology Comment on above: Iron deficiency anem ia due to chronic blood loss (Primary Dx) RE: Blood test Start: 10-11-2021 Refill Halle Dale MD Work Phone: [facility] Hematology/Oncology Comment on above: Refill Request Start: 10-10-2021 ambulatory Louie Garg fisheries managerMeter Reader Inspector Management Comment on above: Community Monitoring Outreach (CKD Telephonic CDM Outreach) Start: 10-10-2021 Refill Sean Mays MD Work Phone: [facility] Cardiology [place] Comment on above: Refill Request Start: 10-09-2021 Telephone encounter Ulises Ramos DO Work Phone: [facility] [place] Comment on above: Patient Question Question Start: 10-09-2021 End: 10-09-2021 ambulatory Sia Hodge PT Work Phone: [facility] Comment on above: Impaired functional mobility, balance, gait, and endurance (Primary Dx); Left hip pain Start: 10-04-2021 Telephone encounter Melissa hartman APRN.ASSISTANT WINEMAKER Work Phone: [facility] Cardiology Comment on above: Results Start: 10-03-2021 End: 10-03-2021 ambulatory Heaven Shelley TAIL EDGER Work Phone: [facility] Comment on above: Impaired functional mobility, balance, gait, and endurance (Primary Dx); Chronic pain of left knee; Left hip pain Start: 10-02-2021 End: 10-02-2021 Patient encounter procedure Melissa Raymond APRN.ASSISTANT WINEMAKER Work Phone: [facility] Cardiology Comment on above: Post PTCA (Primary D x); Mixed hyperlipidemia Start: 09-28-2021 Telephone encounter Delaney Turk [facility] RX Adherence Packaging Comment on above: Compliance Adherence (Adherence Packaging ) Start: 09-26-2021 Telephone encounter Halle Haro Work Phone: [facility] Hematology/Oncology Comment on above: Patient Question (Nikolas peacock wants to know if he has an altitude limit he has to stay under? He is traveling and will be flying over 8,000 feet. ) Start: 09-26-2021 End: 09-26-2021 ambulatory Heaven Shelley TAIL EDGER Work Phone: [facility] Comment on above: Impaired functional mobility, balance, gait, and endurance (Primary Dx); Chronic pain of left knee; Left hip pain Start: 09-25-2021 ambulatory Wilton Melchor [facility] Comment on above: Community Monitoring Outreach (CKD Telephonic CDM Outreach ) Start: 09-24-2021 End: 09-24-2021 ambulatory Heaven Shelley TAIL EDGER Work Phone: [facility] Comment on above: Impaired functional mobility, balance, gait, and endurance (Primary Dx) Start: 09-19-2021 End: 09-19-2021 ambulatory Halle Dale MD Work Phone: [facility] Hematology/Oncology Comment on above: Iron deficiency anem ia due to chronic blood loss (Primary Dx); Other insomnia Start: 09-19-2021 End: 09-19-2021 Patient encounter procedure Halle Dale MD Work Phone: [facility] Start: 09-13-2021 Telephone encounter Loy Mcallister MD Work Phone: Urology Comment on above: psa results Start: 09-13-2021 End: 09-13-2021 ambulatory Sierra Ortiz PT Work Phone: [facility] Comment on above: Impaired functional mobility, balance, gait, and endurance (Primary Dx); Chronic pain of left knee; Left hip pain Start: 09-12-2021 End: 09-12-2021 Patient encounter procedure Ulises Ramos DO Work Phone: [facility] Comment on above: Elevated PSA (Primar y Dx); Primary insomnia Start: 09-11-2021 ambulatory Kristal De Leon RN Ambulator y Care Management Comment on above: ACM RITU RN ( [facility]) Start: 09-05-2021 End: 09-05-2021 ambulatory Heaven Shelley TAIL EDGER Work Phone: [facility] Comment on above: Impaired functional mobility, balance, gait, and endurance (Primary Dx); Chronic pain of left knee; Left hip pain Start: 09-04-2021 Telephone encounter Ulises Ramos DO Work Phone: [facility] Comment on above: Nurse Triage Call Start: 08-29-2021 End: 08-29-2021 ambulatory Heaven Espinosanot TAIL EDGER Work Phone: [facility] Comment on above: Impaired functional mobility, balance, gait, and endurance (Primary Dx); Chronic pain of left knee; Left hip pain Community Monitoring Outreach (CKD Telephonic CDM Outreach) Start: 08-27-2021 End: 08-27-2021 ambulatory Sierra Ortiz PT Work Phone: [facility] Comment on above: Impaired functional mobility, balance, gait, and endurance (Primary Dx); Chronic pain of left knee; Left hip pain Start: 08-21-2021 Refill Jorge sharma MD Work Phone: [facility] [place] Comment on above: Refill Request Start: 08-15-2021 Orders Only Loy Mcallister MD Work Phone: Urology Comment on above: Elevated prostate sp ecific antigen (PSA) (Primary Dx) Results Start: 08-14-2021 Telephone encounter Halle Haro Work Phone: [facility] Hematology/Oncology Comment on above: Orders CLL (chronic lymphoc ytic leukemia) (HCC) (Primary Dx) Start: 08-14-2021 End: 08-14-2021 ambulatory Heaven Arbuthnot TAIL EDGER Work Phone: [facility] Comment on above: Impaired functional mobility, balance, gait, and endurance (Primary Dx); Chronic pain of left knee; Left hip pain Start: 08-13-2021 ambulatory Louie Garg RN Meter Reader Inspector Management Comment on above: Community Monitoring Outreach (CKD Telephonic CDM Outreach) Start: 08-09-2021 Telephone encounter Ulises Ramos DO Work Phone: [facility] [place] Comment on above: Forms (Mon's) Start: 08-09-2021 End: 08-09-2021 ambulatory Sierra Ortiz PT Work Phone: [facility] Comment on above: Impaired functional mobility, balance, gait, and endurance (Primary Dx); Chronic pain of left knee; Left hip pain Start: 08-06-2021 ambulatory Louei Garg RN Meter Reader Inspector Management Comment on above: Community Monitoring Outreach (CKD Telephonic CDM Outreach) Start: 08-01-2021 Telephone encounter Ulises Ramos DO Work Phone: [facility] [place] Comment on above: Medication Problem Start: 08-01-2021 End: 08-01-2021 ambulatory Heaven Arbuthnot TAIL EDGER Work Phone: [facility] Comment on above: Impaired functional mobility, balance, gait, and endurance (Primary Dx); Chronic pain of left knee; Left hip pain Start: 07-30-2021 End: 07-30-2021 ambulatory Heaven Arbuthnot TAIL EDGER Work Phone: [facility] Comment on above: Impaired functional mobility, balance, gait, and endurance (Primary Dx); Left hip pain; Chronic pain of left knee; Pain in left hip Start: 07-27-2021 Telephone encounter Jorge Roman MD Work Phone: [facility] [place] Comment on above: Initial Consult (Ini tial consult [id number] ENT Right ear pain Nasal sore) Start: 07-27-2021 End: 07-27-2021 ambulatory Sierra Ortiz PT Work Phone: [facility] Comment on above: Impaired functional mobility, balance, gait, and endurance (Primary Dx); Left hip pain Start: 07-26-2021 ambulatory Louie Garg RN Meter Reader Inspector Management Comment on above: Community Monitoring Outreach (CKD Telephonic CDM Outreach) Start: 07-26-2021 Refill Ulises ortega DO Work Phone: [facility] Comment on above: Refill Request Start: 07-25-2021 Telephone encounter Ulises Ramos DO Work Phone: [facility] [place] [employer] Comment on above: Forms (meg) Start: 07-25-2021 End: 07-25-2021 ambulatory Heaven Shelley TAIL EDGER Work Phone: [facility] Comment on above: Impaired functional mobility, balance, gait, and endurance (Primary Dx); Left hip pain; Chronic pain of left knee Start: 07-20-2021 Telephone encounter Halle Haro Work Phone: [facility] Comment on above: Question Start: 07-20-2021 End: 07-20-2021 ambulatory Eileen Fidelity TAIL EDGER Work Phone: [facility] Comment on above: Impaired functional [...] Telephone encounter Ulises Ramos DO Work Phone: [facility] [place] Comment on above: Appointment (Resched ule appt-Provider out of office) Start: 07-11-2021 ambulatory Louie Garg RN Meter Reader Inspector Management Comment on above: Community Monitoring Outreach (CKD CDM Enrollment) Start: 07-06-2021 End: 07-06-2021 ambulatory Sia Hodge PT Work Phone: [facility] Comment on above: Impaired functional mobility, balance, gait, and endurance (Primary Dx); Chronic pain of left knee; Left hip pain Start: 08-21-2017 Ambulatory [facility] Procedures Date Procedure Procedure Detail Performing Clinician Start: 02-20-2023 ECG 12-LEAD MELINDA BRADSHAW Start: 02-20-2023 Ecg routine ecg w/le ast 12 lds w/i&r Melinda Bradshaw MD Work Phone: Start: 12-19-2022 Transfusion of Nonautologous Red Blood Cells into Peripheral Vein, Percutaneous Approach SERENE MARIE DO~[id number] Start: 12-11-2022 Antibody screen HORTENCIA GALLARDO Comment on above: Order Comment: Speci men Type: BLOOD SPECIMENOrdering Facility: [facility] Address: [address] [place] [address] Performed By: #### T SCR ####CC MAIN BLOOD BANKCLIA [id number] [address] Start: 12-08-2022 Antibody screen HORTENCIA GALLARDO Comment on above: Order Comment: Speci men Type: BLOOD SPECIMENOrdering Facility: [facility] Address: [address] [place] [address] Performed By: #### T SCR ####CC MAIN BLOOD BANKCLIA [id number] [address] Start: 10-16-2022 Antibody screen Halle schilling MD Work Phone: Start: 10-09-2022 Colonoscopy flx dx w /collj spec when pfrmd Hortencia Gallardo MD Work Phone: Start: 10-09-2022 Endoscopy upper smal l intestine Hortencia Gallardo MD Work Phone: Start: 10-09-2022 Colonoscopy Mc [id number] Work Phone: Start: 10-08-2022 Compatibility each u nit electronic Halle Dale MD Work Phone: Start: 08-28-2022 End: 08-28-2022 RBC TRANSFUSION INSTRUCTION ([place]) Halle Dale MD Work Phone: Start: 08-27-2022 [...] 10-09-2032 Screening for malignant neoplasm of colon [facility] Start: 10-10-2027 Colonoscopy COLONOSCOPY [facility] Start: 10-10-2027 COLORECTAL CANCER SCREENING COLORECTAL CANCER SCREENING [facility] Start: 10-10-2027 Screening for malignant neoplasm of colon [facility] Start: 08-22-2027 Screening for malignant neoplasm of colon [facility] Start: 07-03-2027 Lipid 1996 panel - Serum or Plasma Lipid Screening [facility] Start: 07-03-2027 Lipid panel Lipid Screening [facility] Start: 07-03-2027 LIPID SCREEN LIPID SCREEN [facility] Start: 04-23-2027 LIPID SCREEN LIPID SCREEN [facility] Start: 03-18-2027 PROSTATE CANCER SCREENING DISCUSSION PROSTATE CANCER SCREENING DISCUSSION [facility] Start: 01-17-2027 LIPID SCREEN LIPID SCREEN [facility] Start: 12-13-2026 PROSTATE CANCER SCREENING DISCUSSION PROSTATE CANCER SCREENING DISCUSSION [facility] Start: 10-03-2026 LIPID SCREEN L[facility]ID SCREEN [facility] [facility] Start: 09-27-2026 PROSTATE CANCER SCREENING DISCUSSION PROSTATE CANCER SCREENING DISCUSSION [facility] Start: 09-11-2026 PROSTATE CANCER SCREENING DISCUSSION PROSTATE CANCER SCREENING DISCUSSION [facility] Start: 08-14-2026 PROSTATE CANCER SCREENING DISCUSSION PROSTATE CANCER SCREENING DISCUSSION [facility] Start: 01-19-2026 LIPID SCREEN LIPID SCREEN [facility] Start: 01-19-2026 PROSTATE CANCER SCREENING DISCUSSION PROSTATE CANCER SCREENING DISCUSSION [facility] Start: 12-17-2025 DIABETES SCREEN DIABETES SCREEN [facility] Start: 12-17-2025 Diabetes Screening Diabetes Screening [facility] Start: 12-11-2025 DIABETES SCREEN DIABETES SCREEN [facility] Start: 12-10-2025 DIABETES SCREEN DIABETES SCREEN [facility] Start: 12-09-2025 DIABETES SCREEN DIABETES SCREEN [facility] Start: 11-26-2025 DIABETES SCREEN DIABETES SCREEN [facility] Start: 11-11-2025 DIABETES SCREEN DIABETES SCREEN [facility] Start: 10-30-2025 DIABETES SCREEN DIABETES SCREEN [facility] Start: 10-07-2025 DIABETES SCREEN DIABETES SCREEN [facility] Start: 09-23-2025 DIABETES SCREEN DIABETES SCREEN [facility] Start: 09-10-2025 DIABETES SCREEN DIABETES SCREEN [facility] Start: 08-26-2025 DIABETES SCREEN DIABETES SCREEN [facility] Start: 06-19-2025 DIABETES SCREEN DIABETES SCREEN [facility] Start: 06-19-2024 DIABETES SCREEN DIABETES SCREEN [facility] Start: 01-08-2024 Covid-19 Vaccine () Covid-19 Vaccine () [facility] Start: 01-08-2024 End: 01-08-2024 ambulatory 01/08/2024 11:00 AM EDT OT/PT/Speech Visit [facility] [address] [place] [address] [phone] Андрей Mon, PT [address] [place], [place] [phone] TIA - requested acupuncture,would like dry needling if appropriate [facility] Comment on above: TIA - requested acupuncture,would like d ry needling if appropriate Start: 01-01-2024 End: 01-01-2024 ambulatory 01/01/2024 10:15 AM EDT OT/PT/Speech Visit [facility] [address] [place] [address] [phone] Heaven Shelley, TAIL EDGER [address] [place], [place] [phone] TIA - requested acupuncture,would like dry needling if appropriate [facility] Comment on above: TIA - requested acupuncture,would like d ry needling if appropriate Start: 12-25-2023 End: 12-25-2023 ambulatory 12/25/2023 9:30 AM EDT OT/PT/Speech Visit [facility] [address] [place] [address] [phone] Heaven Shelley, TAIL EDGER [address] [place] [address] TIA - requested acupuncture,would like dry needling if appropriate [facility] Comment on above: TIA - requested acupuncture,would like d ry needling if appropriate Start: 12-18-2023 Complete blood count Hemoglobin/Hematocrit [facility] Start: 12-18-2023 Creatinine measurement Serum Creatinine [facility] Start: 12-18-2023 HEMOGLOBIN/HEMATOCRIT HEMOGLOBIN/HEMATOCRIT [facility] Start: 12-18-2023 SERUM CREATININE SERUM CREATININE [facility] Start: 12-18-2023 End: 12-18-2023 ambulatory 12/18/2023 8:45 AM EDT OT/PT/Speech Visit [facility] [address] [place] [address] Lexie Vavlerde, PT [address] [place] [phone] TIA - requested acupuncture,would like dry needling if appropriate [facility] Comment on above: TIA - requested acupuncture,would like d ry needling if appropriate Start: 12-14-2023 Influenza vaccination Influenza Vaccine (#1) [facility] Start: 12-12-2023 HEMOGLOBIN/HEMATOCRIT HEMOGLOBIN/HEMATOCRIT [facility] Start: 12-12-2023 SERUM CREATININE SERUM CREATININE [facility] Start: 12-11-2023 HEMOGLOBIN/HEMATOCRIT HEMOGLOBIN/HEMATOCRIT [facility] Start: 12-11-2023 SERUM CREATININE SERUM CREATININE [facility] Start: 12-10-2023 HEMOGLOBIN/HEMATOCRIT HEMOGLOBIN/HEMATOCRIT [facility] Start: 12-10-2023 SERUM CREATININE SERUM CREATININE [facility] Start: 11-27-2023 HEMOGLOBIN/HEMATOCRIT HEMOGLOBIN/HEMATOCRIT [facility] Start: 11-27-2023 SERUM CREATININE SERUM CREATININE [facility] Start: 11-22-2023 ANNUAL PCP TEAM CHRONIC DISEASE VISIT ANNUAL PCP TEAM CHRONIC DISEASE VISIT [facility] Start: 11-22-2023 BP CONTROLLED (<130/80) BP CONTROLLED (<130/80) [facility] Start: 11-19-2023 SERUM CREATININE SERUM CREATININE [facility] Start: 11-12-2023 HEMOGLOBIN/HEMATOCRIT HEMOGLOBIN/HEMATOCRIT [facility] Start: 11-12-2023 SERUM CREATININE SERUM CREATININE [facility] Start: 11-12-2023 End: 11-12-2023 ambulatory 11/12/2023 11:00 AM EDT [facility] [address] [address] Hortencia Gallardo MD [facility] [address] [place] [address] F/U- Bleeding Gastroenterology Comment on above: F/U- Bleeding Start: 10-31-2023 HEMOGLOBIN/HEMATOCRIT HEMOGLOBIN/HEMATOCRIT [facility] Start: 10-31-2023 SERUM CREATININE SERUM CREATININE [facility] Start: 10-18-2023 ANNUAL PCP TEAM CHRONIC DISEASE VISIT ANNUAL PCP TEAM CHRONIC DISEASE VISIT [facility] Start: 10-17-2023 HEMOGLOBIN/HEMATOCRIT HEMOGLOBIN/HEMATOCRIT [facility] Start: 10-08-2023 HEMOGLOBIN/HEMATOCRIT HEMOGLOBIN/HEMATOCRIT [facility] Start: 10-08-2023 SERUM CREATININE SERUM CREATININE [facility] Start: 09-24-2023 End: 09-24-2023 ambulatory 09/24/2023 4:00 PM EDT [facility] [address] [address] Hortencia Gallardo MD [facility] [address] [address] F/U Gastroenterology Comment on above: F/U Start: 09-24-2023 HEMOGLOBIN/HEMATOCRIT HEMOGLOBIN/HEMATOCRIT [facility] Start: 09-24-2023 SERUM CREATININE SERUM CREATININE [facility] Start: 09-11-2023 HEMOGLOBIN/HEMATOCRIT HEMOGLOBIN/HEMATOCRIT [facility] Start: 09-11-2023 SERUM CREATININE SERUM CREATININE [facility] Start: 08-27-2023 HEMOGLOBIN/HEMATOCRIT HEMOGLOBIN/HEMATOCRIT [facility] Start: 08-27-2023 SERUM CREATININE SERUM CREATININE [facility] Start: 08-15-2023 HEMOGLOBIN/HEMATOCRIT HEMOGLOBIN/HEMATOCRIT [facility] Start: 08-07-2023 HEMOGLOBIN/HEMATOCRIT HEMOGLOBIN/HEMATOCRIT [facility] Start: 08-07-2023 SERUM CREATININE SERUM CREATININE [facility] Start: 07-31-2023 ANNUAL PCP TEAM CHRONIC DISEASE VISIT ANNUAL PCP TEAM CHRONIC DISEASE VISIT [facility] Start: 07-31-2023 HEMOGLOBIN/HEMATOCRIT HEMOGLOBIN/HEMATOCRIT [facility] Start: 07-31-2023 SERUM CREATININE SERUM CREATININE [facility] Start: 07-19-2023 HEMOGLOBIN/HEMATOCRIT HEMOGLOBIN/HEMATOCRIT [facility] Start: 07-12-2023 ANNUAL PCP TEAM CHRONIC DISEASE VISIT ANNUAL PCP TEAM CHRONIC DISEASE VISIT [facility] Start: 07-03-2023 ANNUAL PCP TEAM CHRONIC DISEASE VISIT ANNUAL PCP TEAM CHRONIC DISEASE VISIT [facility] Start: 07-03-2023 Hepatitis B surface antibody level LDL CHOLESTEROL [facility] Start: 06-20-2023 HEMOGLOBIN/HEMATOCRIT HEMOGLOBIN/HEMATOCRIT [facility] Start: 06-20-2023 SERUM CREATININE SERUM CREATININE [facility] Start: 06-05-2023 ANNUAL PCP TEAM CHRONIC DISEASE VISIT ANNUAL PCP TEAM CHRONIC DISEASE VISIT [facility] Start: 05-29-2023 HEMOGLOBIN/HEMATOCRIT HEMOGLOBIN/HEMATOCRIT [facility] Start: 05-06-2023 ANNUAL PCP TEAM CHRONIC DISEASE VISIT ANNUAL PCP TEAM CHRONIC DISEASE VISIT [facility] Start: 04-23-2023 HEMOGLOBIN/HEMATOCRIT HEMOGLOBIN/HEMATOCRIT [facility] Start: 04-17-2023 ANNUAL PCP TEAM CHRONIC DISEASE VISIT ANNUAL PCP TEAM CHRONIC DISEASE VISIT [facility] Start: 04-14-2023 Advance Directive Discussion Advance Directive Discussion [facility] Start: 04-14-2023 Behavioral Health Screening Behavioral Health Screening [facility] Start: 04-14-2023 Depression Assessment Depression Assessment [facility] Start: 04-08-2023 COVID-19 Vaccine (4 - Moderna risk series) COVID-19 Vaccine (4 - Moderna risk series) [facility] Start: 04-08-2023 Covid-19 Vaccine ( season) Covid-19 Vaccine ( season) [facility] Start: 03-18-2023 HEMOGLOBIN/HEMATOCRIT HEMOGLOBIN/HEMATOCRIT [facility] Start: 03-18-2023 SERUM CREATININE SERUM CREATININE [facility] Start: 02-24-2023 End: 12-24-2023 Ct thorax w/o contrast material CT CHEST WO IVCON Radiology Routine Renal cancer, right (HCC) Expected: 02/24/2023 (Approximate), Expires: 12/24/[address] [facility] Work Phone: Comment on above: Expected: 02/24/2023 (Approximate), Expi res: 12/24/2023 Start: 02-18-2023 HEMOGLOBIN/HEMATOCRIT HEMOGLOBIN/HEMATOCRIT [facility] Start: 01-23-2023 ANNUAL PCP TEAM CHRONIC DISEASE VISIT ANNUAL PCP TEAM CHRONIC DISEASE VISIT [facility] Start: 01-17-2023 HEMOGLOBIN/HEMATOCRIT HEMOGLOBIN/HEMATOCRIT [facility] Start: 12-13-2022 Covid-19 Vaccine () Covid-19 Vaccine () [facility] Start: 12-13-2022 HEMOGLOBIN/HEMATOCRIT HEMOGLOBIN/HEMATOCRIT [facility] Start: 12-13-2022 Influenza vaccination [facility] Start: 12-04-2022 End: 02-03-2023 CBC W Auto Differential panel - Blood CBC + DIFF Lab Routine Essential thrombocythemia (HCC) Expected: 12/04/2022 (Approximate), Expires: 02/03/[address] [facility] Work Phone: Comment on above: Expected: 12/04/2022 (Approximate), Expi res: 02/03/2023 Start: 12-03-2022 ANNUAL PCP TEAM CHRONIC DISEASE VISIT ANNUAL PCP TEAM CHRONIC DISEASE VISIT [facility] Start: 11-12-2022 HEMOGLOBIN/HEMATOCRIT HEMOGLOBIN/HEMATOCRIT [facility] Start: 11-12-2022 SERUM CREATININE SERUM CREATININE [facility] Start: 10-24-2022 End: 12-24-2022 CBC W Auto Differential panel - Blood CBC + DIFF Lab Routine Essential thrombocythemia (HCC) Expected: 10/24/2022, Expires: 12/24/[address] [facility] Work Phone: Comment on above: Expected: 10/24/2022, Expires: 3 Start: 10-24-2022 End: 12-24-2022 TYPE + SCREEN TYPE + SCREEN Blood Bank Routine Essential thrombocythemia (HCC) Expected: 10/24/2022, Expires: 12/24/[address] [facility] Work Phone: Comment on above: Expected: 10/24/2022, Expires: 3 Start: 10-22-2022 ANNUAL PCP TEAM CHRONIC DISEASE VISIT ANNUAL PCP TEAM CHRONIC DISEASE VISIT [facility] Start: 10-22-2022 BP CONTROLLED (<130/80) BP CONTROLLED (<130/80) [facility] Start: 10-22-2022 HEMOGLOBIN/HEMATOCRIT HEMOGLOBIN/HEMATOCRIT [facility] Start: 10-16-2022 HEMOGLOBIN/HEMATOCRIT HEMOGLOBIN/HEMATOCRIT [facility] Start: 10-10-2022 End: 12-10-2022 CBC W Auto Differential panel - Blood CBC + DIFF Lab Routine Essential thrombocythemia (HCC) Expected: 10/10/2022, Expires: 12/10/[address] [facility] Work Phone: Comment on above: Expected: 10/10/2022, Expires: Start: 10-02-2022 BP CONTROLLED (<130/80) BP CONTROLLED (<130/80) [facility] Start: 09-27-2022 HEMOGLOBIN/HEMATOCRIT HEMOGLOBIN/HEMATOCRIT [facility] Start: 09-21-2022 End: 11-21-2022 Comprehensive metabolic 2000 panel - Serum or Plasma COMP METABOLIC PANEL Lab Routine Essential thrombocythemia (HCC) Expected: 09/21/2022 (Approximate), Expires: 11/21/[address] [facility] Work Phone: Comment on above: Expected: 09/21/2022 (Approximate), Expi res: 11/21/2022 Start: 09-19-2022 BP CONTROLLED (<130/80) BP CONTROLLED (<130/80) [facility] Start: 09-12-2022 ANNUAL PCP TEAM CHRONIC DISEASE VISIT ANNUAL PCP TEAM CHRONIC DISEASE VISIT [facility] Start: 09-12-2022 BP CONTROLLED (<130/80) BP CONTROLLED (<130/80) [facility] Start: 09-11-2022 HEMOGLOBIN/HEMATOCRIT HEMOGLOBIN/HEMATOCRIT [facility] Start: 08-27-2022 End: 10-27-2022 TYPE + SCREEN [facility] Work Phone: Comment on above: Expected: 08/27/2022 (Approximate), Expi res: 10/27/2022 Start: 08-21-2022 Colonoscopy COLONOSCOPY [facility] Start: 08-21-2022 COLORECTAL CANCER SCREENING COLORECTAL CANCER SCREENING [facility] Start: 08-14-2022 HEMOGLOBIN/HEMATOCRIT HEMOGLOBIN/HEMATOCRIT [facility] Start: 08-12-2022 End: 10-12-2022 TYPE + SCREEN TYPE + SCREEN Blood Bank Routine Iron deficiency anemia due to chronic blood loss Expected: 08/12/2022 (Approximate), Expires: 10/12/[address] [facility] Work Phone: Comment on above: Expected: 08/12/2022 (Approximate), Expi res: 10/12/2022 Start: 07-25-2022 End: 09-24-2022 CBC W Auto Differential panel - Blood CBC + DIFF Lab Routine Iron deficiency anemia due to chronic blood loss Acute deep vein thrombosis (DVT) of popliteal vein of left lower extremity (HCC) Expected: 07/25/2022, Expires: 09/24/[address] [facility] Work Phone: Comment on above: Expected: 07/25/2022, Expires: 3 Start: 07-17-2022 ANNUAL PCP TEAM CHRONIC DISEASE VISIT ANNUAL PCP TEAM CHRONIC DISEASE VISIT [facility] Start: 07-17-2022 HEMOGLOBIN/HEMATOCRIT HEMOGLOBIN/HEMATOCRIT [facility] Start: 07-02-2022 End: 09-01-2022 Alpha 1 antitrypsin [Mass/volume] in Serum or Plasma [facility] Work Phone: Comment on above: Expected: 07/02/2022, Expires: 3 Start: 06-20-2022 BP CONTROLLED (<130/80) BP CONTROLLED (<130/80) [facility] Start: 06-19-2022 HEMOGLOBIN/HEMATOCRIT HEMOGLOBIN/HEMATOCRIT [facility] Start: 06-19-2022 SERUM CREATININE SERUM CREATININE [facility] Start: 05-28-2022 ANNUAL PCP TEAM CHRONIC DISEASE VISIT ANNUAL PCP TEAM CHRONIC DISEASE VISIT [facility] Start: 05-15-2022 FECAL OCCULT BLOOD FECAL OCCULT BLOOD [facility] Start: 05-15-2022 Screening for malignant neoplasm of colon Fecal Occult Blood [facility] Start: 05-13-2022 Diabetes mellitus screening Diabetes Screening [facility] Start: 04-30-2022 COVID-19 VACCINE (6 - Moderna risk series) COVID-19 VACCINE (6 - Moderna risk series) [facility] Start: 04-20-2022 DTaP/Tdap/Td Vaccines (2 - Td or Tdap) DTaP/Tdap/Td Vaccines (2 - Td or Tdap) [facility] Start: 04-20-2022 Urine microalbumin profile DTaP,Tdap,Td Vaccine (2 - Td or Tdap) [facility] Start: 04-14-2022 ADVANCE DIRECTIVE DISCUSSION ADVANCE DIRECTIVE DISCUSSION [facility] Start: 04-14-2022 DEPRESSION ASSESSMENT DEPRESSION ASSESSMENT [facility] Start: 04-05-2022 Adult depression screening assessment DEPRESSION SCREENING [facility] Start: 02-28-2022 SHINGRIX VACCINE (2 of 3) SHINGRIX VACCINE (2 of 3) [facility] Comment on above: Postponed from 11/12/2015 (Declined at t his time) Start: 02-28-2022 Urine microalbumin profile DTAP,TDAP,TD (1 - Tdap) [facility] Comment on above: Postponed from 1972 (Declined at t his time) Start: 02-27-2022 PNEUMOVAX AGE 65 AND OVER WITH 5YR LOOKBACK (#1) PNEUMOVAX AGE 65 AND OVER WITH 5YR LOOKBACK (#1) [facility] Start: 12-13-2021 Influenza vaccination INFLUENZA (#1) [facility] Start: 11-23-2021 COVID-19 VACCINE (5 - Booster for Moderna series) COVID-19 VACCINE (5 - Booster for Moderna series) [facility] Start: 10-24-2021 End: 12-24-2021 TYPE + SCREEN TYPE + SCREEN Blood Bank Routine Iron deficiency anemia due to chronic blood loss Expected: 10/24/2021 (Approximate), Expires: 12/24/[address] [facility] Work Phone: Comment on above: Expected: 10/24/2021 (Approximate), Expi res: 12/24/2021 Start: 10-22-2021 End: 12-22-2021 CBC W Auto Differential panel - Blood [facility] Work Phone: Comment on above: Expected: 10/22/2021, Expires: 2 Start: 10-22-2021 End: 12-22-2021 Iron and Iron binding capacity panel - Serum or Plasma [facility] Work Phone: Comment on above: Expected: 10/22/2021, Expires: 2 Start: 10-16-2021 End: 12-16-2021 TYPE + SCREEN TYPE + SCREEN Blood Bank Routine Iron deficiency anemia due to chronic blood loss Expected: 10/16/2021 (Approximate), Expires: 12/16/[address] [facility] Work Phone: Comment on above: Expected: 10/16/2021 (Approximate), Expi res: 12/16/2021 Start: 10-12-2021 End: 12-12-2021 Prostate Specific Ag Free [Mass/volume] in Serum or Plasma PSA FREE Lab Routine Elevated PSA Expected: 10/12/2021, Expires: 12/12/[address] [facility] Work Phone: Comment on above: Expected: 10/12/2021, Expires: 2 Start: 10-02-2021 End: 12-02-2021 Lipid 1996 panel - Serum or Plasma LIPID PANEL BASIC Lab Routine Post PTCA Mixed hyperlipidemia Expected: 10/02/2021, Expires: 12/02/[address] [facility] Work Phone: Comment on above: Expected: 10/02/2021, Expires: 2 Start: 09-18-2021 COVID-19 VACCINE (5 - Booster for Moderna series) COVID-19 VACCINE (5 - Booster for Moderna series) [facility] Start: 09-15-2021 End: 11-15-2021 Prostate specific Ag [Mass/volume] in Serum or Plasma PSA/PROSTSPECAG DIAG Lab Routine Elevated prostate specific antigen (PSA) Expected: 09/15/2021, Expires: 11/15/[address] [facility] Work Phone: Comment on above: Expected: 09/15/2021, Expires: 2 Start: 09-06-2021 SHINGRIX VACCINE (2 of 2) SHINGRIX VACCINE (2 of 2) [facility] Start: 09-06-2021 SHINGRIX VACCINE (3 of 3) SHINGRIX VACCINE (3 of 3) [facility] Start: 08-24-2021 BP CONTROLLED (<130/80) BP CONTROLLED (<130/80) [facility] Start: 06-11-2021 COVID-19 VACCINE (4 - Booster for Moderna series) COVID-19 VACCINE (4 - Booster for Moderna series) [facility] Start: 04-14-2021 ADVANCE DIRECTIVE DISCUSSION ADVANCE DIRECTIVE DISCUSSION [facility] Start: 04-14-2021 DEPRESSION ASSESSMENT DEPRESSION ASSESSMENT [facility] Start: 02-27-2018 PNEUMOCOCCAL: 65+ (2 - PCV) PNEUMOCOCCAL: 65+ (2 - PCV) [facility] Start: 2013 RSV Vaccine (1 - 1-dose 60+ series) RSV Vaccine (1 - 1-dose 60+ series) [facility] Start: 1998 COLOGUARD (FIT-DNA) COLOGUARD (FIT-DNA) [facility] Start: [address] COLONOGRAPHY [facility] Start: 1998 Screening for malignant neoplasm of colon [facility] Start: 1998 SIGMOIDOSCOPY SIGMOIDOSCOPY [facility] Start: 10-27-1983 Zoledronic acid therapy ALPHA-1 ANTITRYPSIN DEFICIENCY SCREENING [facility] Start: 1972 Urine microalbumin profile [facility] Start: 10-27-1971 Anxiety Screening Anxiety Screening [facility] Start: 10-27-1971 Depression Screening Depression Screening [facility] Start: 10-27-1971 Hepatitis C screening Hepatitis C Screening [facility] Start: 10-27-1971 SPIROMETRY SPIROMETRY [facility] Start: 1965 Depression Screening Depression Screening [facility] Start: 1953 Lipid panel Lipid Panel [facility] Start: 1953 Medicare Annual Wellness (AWV) Medicare Annual Wellness (AWV) [facility] Start: 1953 Medicare Annual Wellness Visit Medicare Annual Wellness Visit (AWV) [facility] Start: 1955 Screening for malignant neoplasm of colon [facility] End: 08-14-2022 CBC W Auto Differential panel - Blood CBC + DIFF Lab Routine CLL (chronic lymphocytic leukemia) (HCC) Once per month for 20 Occurrences starting 08/14/2021 until 08/14/[address] [facility] Work Phone: Comment on above: Once per month for 20 Occurrences starti ng 08/14/2021 until 08/14/2022 End: 03-22-2023 CBC W Auto Differential panel - Blood CBC + DIFF Lab Routine Essential thrombocythemia (HCC) Once per month for 20 Occurrences starting 03/22/2022 until 03/22/[address] [facility] Work Phone: Comment on above: Once per month for 20 Occurrences starti ng 03/22/2022 until 03/22/2023 End: 06-21-2023 CBC W Auto Differential panel - Blood CBC + DIFF Lab Routine Essential thrombocythemia (HCC) Once per month for 20 Occurrences starting 06/21/2022 until 06/21/[address] [facility] Work Phone: Comment on above: Once per month for 20 Occurrences starti ng 06/21/2022 until 06/21/2023 End: 08-02-2023 CBC W Auto Differential panel - Blood CBC + DIFF Lab Routine Essential thrombocythemia (HCC) Every other week for 10 Occurrences starting 08/02/2022 until 08/02/[address] [facility] Work Phone: Comment on above: Every other week for 10 Occurrences star ting 08/02/2022 until 08/02/2023 End: 08-20-2023 CBC W Auto Differential panel - Blood CBC + DIFF Lab Routine Iron deficiency anemia due to chronic blood loss Every other week for 10 Occurrences starting 08/20/2022 until 08/20/[address] [facility] Work Phone: Comment on above: Every other week for 10 Occurrences star roscoeg 08/20/2022 until 08/20/2023 Clostridioides difficile toxin genes [Presence] in Stool by MYA with probe detection C. DIFFICILE PCR Lab Routine Diarrhea, unspecified type Acute deep vein thrombosis (DVT) of left lower extremity, unspecified vein (HCC) 10/22/2021 3:30 PM EDT [facility] Work Phone: End: 08-08-2023 COLONOSCOPY DIAGNOSTIC COLONOSCOPY DIAGNOSTIC Endoscopy Routine Gastrointestinal hemorrhage, unspecified gastrointestinal hemorrhage type 1 Occurrences starting 08/07/2022 until 08/08/[address] [facility] Work Phone: Comment on above: 1 Occurrences starting 08/07/2022 until 08/08/2023 End: 08-20-2023 Comprehensive metabolic 2000 panel - Serum or Plasma COMP METABOLIC PANEL Lab Routine Iron deficiency anemia due to chronic blood loss Every other week for 10 Occurrences starting 08/20/2022 until 08/20/[address] [facility] Work Phone: Comment on above: Every other week for 10 Occurrences star davis 08/20/2022 until 08/20/2023 End: 08-01-2023 Dup-scan xtr veins unilateral/limited study US DVT LOWER LT Radiology Routine Deep vein thrombosis (DVT) of left lower extremity, unspecified chronicity, unspecified vein (HCC) Localized swelling, mass and lump, left upper limb 1 Occurrences starting 07/02/2022 until 08/01/[address] [facility] Work Phone: Comment on above: 1 Occurrences starting 07/02/2022 until 08/01/2023 ENTERIC BACTERIAL PANEL BY PCR ENTERIC BACTERIAL PANEL BY PCR Lab Routine Diarrhea, unspecified type 10/22/2021 3:30 PM EDT [facility] Work Phone: End: 08-08-2023 ENTEROSCOPY ENTEROSCOPY Endoscopy Routine Gastrointestinal hemorrhage, unspecified gastrointestinal hemorrhage type 1 Occurrences starting 08/07/2022 until 08/08/[address] [facility] Work Phone: Comment on above: 1 Occurrences starting 08/07/2022 until 08/08/2023 End: 08-14-2022 FERRITIN BLD FERRITIN BLD Lab Routine CLL (chronic lymphocytic leukemia) ([facility]) Once per month for 20 Occurrences starting 08/14/2021 until 08/14/[address] [facility] Work Phone: Comment on above: Once per month for 20 Occurrences starti ng 08/14/2021 until 08/14/2022 Influenza virus A an d B RNA and SARS-CoV-2 (COVID-19) N gene panel - Respiratory specimen by MYA with probe detection COVID WITH FLUA+B, ROUTINE Microbiology Routine Chronic obstructive pulmonary disease with acute exacerbation (HCC) 07/02/2022 10:20 AM EDT [facility] Work Phone: End: 09-19-2022 IRON + TIBC IRON + TIBC Lab Routine Iron deficiency anemia due to chronic blood loss Every 3 months for 20 Occurrences starting 09/19/2021 until 09/19/[address] [facility] Work Phone: Comment on above: Every 3 months for 20 Occurrences starti ng 09/19/2021 until 09/19/2022 OCCULT BLD EXAM-DIAG OCCULT BLD EXAM-DIAG Microbiology Routine Diarrhea, unspecified type Ordered: 10/22/[address] [facility] Work Phone: Comment on above: Ordered: 10/22/2021 End: 07-18-2022 Prostate specific Ag [Mass/volume] in Serum or Plasma PSA/PROSTSPECAG DIAG Lab Routine Elevated prostate specific antigen (PSA) 2 Occurrences starting 07/18/2021 until 07/18/[address] [facility] Work Phone: Comment on above: 2 Occurrences starting 07/18/2021 until 07/18/2022 End: 01-17-2023 Prostate specific Ag [Mass/volume] in Serum or Plasma PSA/PROSTSPECAG DIAG Lab Routine Elevated prostate specific antigen (PSA) Atypical small acinar proliferation of prostate Every 6 months for 2 Occurrences starting 01/17/2022 until 01/17/[address] [facility] Work Phone: Comment on above: Every 6 months for 2 Occurrences startin g 01/17/2022 until 01/17/2023 PT PLAN OF CARE CERTIFICATION PT PLAN OF CARE CERTIFICATION Procedures Routine Impaired functional mobility, balance, gait, and endurance Chronic pain of left knee Left hip pain Ordered: 07/09/[address] [facility] Work Phone: Comment on above: Ordered: 07/09/2021 PT PLAN OF CARE CERTIFICATION PT PLAN OF CARE CERTIFICATION Procedures Routine Impaired functional mobility, balance, gait, and endurance Chronic pain of left knee Left hip pain Ordered: 08/27/[address] [facility] Work Phone: Comment on above: Ordered: 08/27/2021 PT PLAN OF CARE CERTIFICATION PT PLAN OF CARE CERTIFICATION Procedures Routine Impaired functional mobility, balance, gait, and endurance Left hip pain Ordered: 10/09/[address] [facility] Work Phone: Comment on above: Ordered: 10/09/2021 PT PLAN OF CARE CERTIFICATION PT PLAN OF CARE CERTIFICATION Procedures Routine Physical deconditioning Ordered: 05/31/[address] [facility] Work Phone: Comment on above: Ordered: 05/31/2022 RED BLOOD CELLS, ADULT RED BLOOD CELLS, ADULT Blood Bank Routine Acute blood loss anemia Severe anemia Stage 3 chronic kidney disease, unspecified whether stage 3a or 3b CKD (HCC) Other iron deficiency anemia 08/27/2022 12:00 AM EDT [facility] Work Phone: RED BLOOD CELLS, ADULT RED BLOOD CELLS, ADULT Blood Bank Routine Stage 3 chronic kidney disease, unspecified whether stage 3a or 3b CKD (HCC) Acute blood loss anemia Severe anemia Other iron deficiency anemia 10/08/2022 12:00 AM EDT [facility] Work Phone: RSV B/O RSV B/O Lab Rout ine Chronic obstructive pulmonary disease with acute exacerbation (HCC) Ordered: 07/02/[address] [facility] Work Phone: Comment on above: Ordered: 07/02/2022 SARS-CoV-2 (COVID-19 ) RNA [Presence] in Respiratory specimen by MYA with probe detection 2019 CORONAVIRUS Microbiology Routine Malaise and fatigue Ordered: 11/12/[address] [facility] Work Phone: Comment on above: Ordered: 11/12/2022 End: 07-03-2023 Screening colonoscopy COLONOSCOPY SCREENING Endoscopy Routine History of colonic polyps 1 Occurrences starting 07/02/2022 until 07/03/[address] [facility] Work Phone: Comment on above: 1 Occurrences starting 07/02/2022 until 07/03/2023 End: 08-01-2023 SPIROMETRY - BASELINE AND POST DILATOR SPIROMETRY - BASELINE AND POST DILATOR PFT Routine Chronic obstructive pulmonary disease with acute exacerbation (HCC) 1 Occurrences starting 07/02/2022 until 08/01/[address] [facility] Work Phone: Comment on above: 1 Occurrences starting 07/02/2022 until 08/01/2023 SPIROMETRY - BASELIN E AND POST DILATOR SPIROMETRY - BASELINE AND POST DILATOR PFT Routine Chronic obstructive pulmonary disease with acute exacerbation (HCC) 07/18/2022 2:43 PM EDT [facility] Work Phone: End: 11-15-2023 US DVT LOWER BILATERAL US DVT LOWER BILATERAL Radiology Routine Leg edema 1 Occurrences starting 10/16/2022 until 11/15/[address] [facility] Work Phone: Comment on above: 1 Occurrences starting 10/16/2022 until 11/15/2023 End: 10-17-2022 US DVT LOWER BILATERAL [facility] Work Phone: Comment on above: 1 Occurrences starting 10/17/2022 until 10/17/2022 End: 08-10-2023 US DVT LOWER RIGHT US DVT LOWER RIGHT Radiology Routine Iron deficiency anemia due to chronic blood loss Acute deep vein thrombosis (DVT) of popliteal vein of left lower extremity (HCC) Right calf pain 1 Occurrences starting 07/11/2022 until 08/10/[address] [facility] Work Phone: Comment on above: 1 Occurrences starting 07/11/2022 until 08/10/2023 End: 07-18-2022 US DVT LOWER RIGHT [facility] Work Phone: Comment on above: 1 Occurrences starting 07/18/2022 until 07/18/2022 End: 08-10-2023 US EXTREMITY MASS/FLUID COLLECTION LEFT US EXTREMITY MASS/FLUID COLLECTION LEFT Radiology Routine Iron deficiency anemia due to chronic blood loss Acute deep vein thrombosis (DVT) of popliteal vein of left lower extremity (HCC) Right calf pain 1 Occurrences starting 07/11/2022 until 08/10/[address] [facility] Work Phone: Comment on above: 1 Occurrences starting 07/11/2022 until 08/10/2023 End: 07-18-2022 US EXTREMITY MASS/FLUID COLLECTION LEFT US EXTREMITY MASS/FLUID COLLECTION LEFT Radiology Routine Iron deficiency anemia due to chronic blood loss Acute deep vein thrombosis (DVT) of popliteal vein of left lower extremity (HCC) Right calf pain 1 Occurrences starting 07/18/2022 until 07/18/[address] [facility] Work Phone: Comment on above: 1 Occurrences starting 07/18/2022 until 07/18/2022 [facility] Immunizations Immunization Date Immunization Notes Care Provider Fa cili 02-11-2023 Moderna COVID-19 vaccine, Fall 2022, 12 yeasrs and older (50mcg/0.5mL) Melinda Bradshaw MD Work Phone: [facility] Work Phone: 01-20-2023 RSV, 60 Years And Ol vickie (AREXVY) Melinda Bradshaw MD Work Phone: [facility] Work Phone: 01-10-2023 influenza, injectabl e, quadrivalent, contains preservative Melinda Bradshaw MD Work Phone: [facility] Work Phone: 01-10-2023 influenza virus vaccine, unspecified formulation Deysi Diop [employer] Work Phone: [facility] 03-15-2022 pneumococcal (PCV20) vaccine, 20 valent (PREVNAR 20) Annmarie Ronquillo PA-C Work Phone: [facility] Work Phone: 03-05-2022 Moderna COVID-19 vaccine, bivalent, blue cap/bee label *Check age/dose* Melinda Bradshaw MD Work Phone: [facility] Work Phone: 10-16-2021 zoster vaccine recombinant Ulises Ramos DO Work Phone: [facility] 07-24-2021 Pfizer Bee Cap SARS-CoV-2 Melinda Bradshaw MD Work Phone: [facility] Work Phone: 07-12-2021 zoster vaccine recombinant Loy Mcallister MD Work Phone: [facility] Work Phone: 05-22-2021 influenza, high-dose , quadrivalent vaccine (FLUZONE HIGH DOSE QUADRIVALENT) Sia Hodge PT Work Phone: [facility] 05-22-2021 influenza virus vaccine, unspecified formulation Marley Falk RD Work Phone: [facility] 07-19-2020 COVID-19 vaccine, fu ll dose (MODERNA) Sia Hodge PT Work Phone: [facility] 06-21-2020 COVID-19 vaccine, fu ll dose (MODERNA) Sia Hodge PT Work Phone: [facility] 01-19-2020 pneumococcal conjuga te vaccine, 13 valent Ulises Ramos DO Work Phone: [facility] 01-18-2020 influenza, high-dose , quadrivalent vaccine (FLUZONE HIGH DOSE QUADRIVALENT) Sia Hodge PT Work Phone: [facility] 01-18-2019 influenza, high dose seasonal, preservative-free Sia Hodge PT Work Phone: [facility] 01-20-2018 influenza, injectabl e, quadrivalent, preservative free Sia Hodge PT Work Phone: [facility] 02-27-2017 pneumococcal polysaccharide vaccine, 23 valent Sia Hodge PT Work Phone: [facility] 02-09-2017 Influenza, injectabl e, Madin Ifrah Canine Kidney, preservative free, quadrivalent Sia Hodge PT Work Phone: [facility] 01-31-2017 influenza, seasonal, injectable Sia Hodge PT Work Phone: [facility] 09-17-2015 zoster vaccine, live Sia Po tts PT Work Phone: [facility] 04-20-2012 influenza virus vaccine, unspecified formulation Melinda Bradshaw MD Work Phone: [facility] Work Phone: 04-20-2012 tetanus toxoid, redu myra diphtheria toxoid, and acellular pertussis vaccine, adsorbed Melinda Bradshaw MD Work Phone: [facility] Work Phone: Payers Date Payer Category Payer Self-pay 2022 Medicare [id number] 2020 Medicare MEDICARE SNF GEN QUENTIN [id number] 2020-Present [phone] [place] [id number] Medicare [id number] 2019 Unknown 2019 Unknown MMO MMO MEDICARE SUPPLEMENT [id number] 2019-Present [phone] [address] [place] [address] Indemnity [id number]. [id number] 2018 Medicare MEDICARE MEDICAR E A AND B [id number] 2018-Present [phone] [address] [address] [place] [address] Medicare [id number]. [id number] 2018 Medicare [id number]. 1.13.159.2.7.3. [id number] 1959 Medicare [id number] 1959 Unknown [id number] 1953 Unknown [id number] 2.16.840.1.532825.3.579.2.356 1953 Unknown [id number] 2.16.840.1.302069.3.579.2.1244 1953 Unknown [id number] 2.16.840.1.559209.3.579.2.627 1953 Unknown [id number] ..840.1.505055.3.579.2.627 1953 Unknown [id number] 2.16.840.1.845882.3.579.2.598 1953 Unknown [id number] 2.16.840.1.795485.3.579.2.598 1953 Unknown [id number] 2.16.840.1.150305.3.579.2.598 1953 Unknown [id number] 2.16.840.1.991150.3.579.2.598 1953 Unknown [id number] 2.16.840.1.561920.3.579.2.627 1953 Unknown [id number] 2.16.840.1.233376.3.579.2.627 1953 Unknown [id number] .16.840.1.266699.3.579.2.627 Unknown [id number] 2.16.840.1.608610.3.579.2.462 Unknown [id number] 2.16.840.1.491384.3.579.2.462 Unknown [id number] 2.16.840.1.052493.3.579.2.462 Unknown [id number] 2.840.1.910732.3.579.2.462 Unknown [id number] 2.840.1.376470.3.579.2.462 Unknown [id number] 2.840.1.246015.3.579.2.462 Unknown [id number] 2.840.1.870089.3.579.2.462 Unknown [id number] 2.840.1.559709.3.579.2.462 Unknown [id number] 2.840.1.017702.3.579.2.462 Unknown [id number] 2.840.1.552031.3.579.2.462 Unknown [id number] 2.840.1.540176.3.579.2.462 Unknown [id number] .840.1.362849.3.579.2.462 Unknown [id number] 2.16840.1.103181.3.579.2.462 Unknown [id number] 2.16840.1.309865.3.579.2.462 Unknown [id number] 2.16840.1.157383.3.579.2.462 Unknown [id number] 2.16.840.1.864985.3.579.2.462 Unknown [id number] 2.16.840.1.368784.3.579.2.462 Unknown [id number] 2.16.840.1.991688.3.579.2.462 Unknown [id number] 2.16.840.1.610980.3.579.2.462 Unknown [id number] 2.16.840.1.144632.3.579.2.462 Unknown [id number] 2.16.840.1.504189.3.579.2.462 Unknown [id number] 2.16.840.1.148076.3.579.2.462 Unknown [id number] 2.16.840.1.830406.3.579.2.462 Unknown [id number] 2.16.840.1.438391.3.579.2.462 Unknown [id number] 2.16.840.1.274541.3.579.2.462 Unknown [id number] 2.16.840.1.782873.3.579.2.462 Unknown [id number] 2.16.840.1.098994.3.579.2.462 Unknown [id number] 2.16.840.1.981501.3.579.2.462 Unknown [id number] 2.16.840.1.393293.3.579.2.462 Unknown [id number] 2.16.840.1.751354.3.579.2.462 Unknown [id number] 2.16.840.1.172426.3.579.2.462 Unknown [id number] 2.16.840.1.027230.3.579.2.462 Unknown [id number] 2.16.840.1.164021.3.579.2.462 Unknown [id number] 2.16.840.1.194305.3.579.2.462 Unknown [id number] 2.16.840.1.495657.3.579.2.462 Unknown [id number] 2.16.840.1.865669.3.579.2.462 Unknown [id number] 2.16.840.1.651408.3.579.2.462 Unknown [id number] 2.16.840.1.210077.3.579.2.462 Unknown [id number] 2.16.840.1.446895.3.579.2.462 Unknown [id number] 2.16.840.1.097218.3.579.2.462 Unknown [id number] 2.840.1.693045.3.579.2.462 Unknown [id number] 2.840.1.678717.3.579.2.462 Unknown [id number] 2.840.1.208111.3.579.2.462 Unknown [id number] 2.840.1.070182.3.579.2.462 Unknown [id number] 2.840.1.775856.3.579.2.462 Unknown [id number] 2.840.1.712105.3.579.2.462 Unknown [id number] 2.840.1.245299.3.579.2.462 Unknown [id number] 2.840.1.271544.3.579.2.462 Unknown [id number] 2.840.1.029203.3.579.2.462 Unknown [id number] 2.840.1.017913.3.579.2.462 Unknown [id number] 2.840.1.680377.3.579.2.462 Unknown [id number] 2.840.1.775411.3.579.2.462 Unknown [id number] 2.16840.1.706717.3.579.2.462 Unknown [id number] 2.16.840.1.617933.3.579.2.462 Unknown [id number] 2.16.840.1.018454.3.579.2.462 Unknown [id number] 2.16.840.1.589756.3.579.2.462 Unknown [id number] 2.16.840.1.315640.3.579.2.462 Unknown [id number] 2.840.1.425497.3.579.2.462 Unknown [id number] 2.840.1.961252.3.579.2.462 Unknown [id number] 2.840.1.152295.3.579.2.462 Unknown [id number] 2.840.1.246158.3.579.2.462 Unknown [id number] 2.840.1.721044.3.579.2.462 Unknown [id number] 2.840.1.167060.3.579.2.462 Unknown [id number] 2.840.1.862408.3.579.2.462 Unknown [id number] 2.840.1.533270.3.579.2.462 Unknown [id number] 2.840.1.149410.3.579.2.462 Unknown [id number] 2.840.1.157840.3.579.2.462 Unknown [id number] 2.840.1.243752.3.579.2.462 Unknown [id number] 2.840.1.272123.3.579.2.462 Unknown [id number] 2.16840.1.702693.3.579.2.462 Unknown [id number] 2.840.1.121204.3.579.2.462 Unknown [id number] 2.840.1.617281.3.579.2.462 Unknown [id number] 2.16.840.1.261409.3.579.2.462 Unknown [id number] 2.16.840.1.107286.3.579.2.462 Unknown [id number] 2.16.840.1.627223.3.579.2.462 Unknown [id number] 2.16.840.1.339306.3.579.2.462 Unknown [id number] 2.16.840.1.306983.3.579.2.462 Unknown [id number] 2.16.840.1.354090.3.579.2.462 Unknown [id number] 2.16.840.1.158107.3.579.2.462 Unknown [id number] 2.16.840.1.838076.3.579.2.462 Unknown [id number] 2.16.840.1.314585.3.579.2.462 Unknown [id number] 2.16.840.1.838673.3.579.2.462 Unknown [id number] 2.16.840.1.139580.3.579.2.462 Unknown [id number] 2.16.840.1.899470.3.579.2.462 Unknown [id number] 2.16840.1.216515.3.579.2.462 Unknown [id number] 2.16840.1.083614.3.579.2.462 Unknown [id number] 2.16840.1.795445.3.579.2.462 Unknown [id number] 2.16840.1.306639.3.579.2.462 Social History Date Type Detail Facility Start: 12-22-2015 End: 12-03-2021 Tobacco smoking status NHIS Ex-smoker [facility] Start: 12-21-1980 End: 12-21-1990 History of tobacco use Current smoker [facility] Start: 12-21-1980 End: 12-21-1990 History of tobacco use Cigarette Smoker [facility] End: 12-21-1990 History of tobacco use Cigar Smoker [facility] Start: 12-22-2015 End: 12-03-2021 Tobacco use and exposure Smokeless tobacco non-user [facility] Start: 06-20-2021 End: 12-19-2022 Alcohol intake Current drinker of alcohol (finding) [facility] Start: 05-20-2021 End: 07-04-2022 History SDOH Alcohol Frequency 2 [facility] Start: 05-20-2021 End: 07-04-2022 History SDOH Alcohol Std Drinks 98 [facility] Start: 05-20-2021 End: 07-04-2022 History SDOH Alcohol Binge 1 [facility] Start: 01-17-2021 History SDOH Alcohol Comment very little [facility] Start: 05-20-2021 End: 07-04-2022 History SDOH Social Connections Phone 5 [facility] Start: 05-20-2021 End: 07-04-2022 History SDOH Social Connections Living 4 [facility] Start: 05-20-2021 History SDOH Physical Activity DPW 0 [facility] Start: 05-20-2021 End: 07-04-2022 History SDOH Stress 3 [facility] Start: 1955 Sex Assigned At Not on file [facility] Start: 06-26-2021 End: 02-20-2023 Exposure to SARS-CoV-2 (event) Not sure [facility] Start: 10-08-2021 End: 10-18-2021 Exposure to SARS-CoV-2 (event) Yes [facility] Start: 07-04-2022 End: 08-16-2022 History of Social function [facility] Start: 07-04-2022 End: 08-16-2022 Social connection and isolation panel [facility] How often do you att end mu-ism or oriental orthodox services? Patient refused [facility] Do you belong to any clubs or organizations such as mu-ism groups, unions, fraternal or athletic groups, or school groups? No [facility] Are you now , , , , never or living with a partner? [facility] How often to you hav e a drink containing alcohol? Monthly or less [facility] How many standard dr inks containing alcohol do you have on a typical day? 3 or 4 [facility] How hard is it for y ou to pay for the very basics like food, housing, medical care, and heating Somewhat hard [facility] Do you feel stress - tense, restless, nervous, or anxious, or unable to sleep at night because your mind is troubled all the time - these days [OSQ] Only a little [facility] (I/We) worried wheth er (my/our) food would run out before (I/we) got money to buy more. DK or Refused [facility] Start: 02-20-2023 Tobacco smoking status NHIS Never smoked tobacco [facility] Work Phone: Start: 02-20-2023 Alcohol intake Ex-drinker (finding) [facility] Work Phone: Start: 12-19-2022 Tobacco smoking status Heavy tobacco smoker (finding) [facility] Start: 1955 Sex Assigned At Male [facility] Start: 05-05-2023 Gender identity Identifies as male gender (finding) [facility] Sexual Orientation [facility] ospital [facility] Start: 12-19-2022 Sex Male (finding) [facility] Medical Equipment Procedure Code Equipment Code Equipment Original Text Equipment Identifier Dates Nail 11mm 400mm 125d Long Ti-15mo [id number] Cocr Intramedullary Green [id number] Start: 07-23-2020 5mm Ti Lck Scr W /[id number] Sdriv 50mm F/Im Nail-St _imp Start: 07-23-2020 Screw Tfn-Advanc ed 10.35mm 3.5mm Bowen [id number] 90mm Bone Cannulated - [id number] Start: 07-23-2020 Stent-10/26/2018 [id number] Start: 2018 [...] Facility 05-26-2024 Functional Status Up to chair [facility] 05-26-2024 Functional Status Independent [facility] 05-26-2024 Functional Status Breakfast Percent 90 [facility] 05-26-2024 Functional Status Room check performed [facility] 05-26-2024 Functional Status Nurse Safety Karsten zhang q2hrs Performed 7pm-7am [facility] 05-26-2024 Functional Status [facility] 05-26-2024 Functional Status [facility] 05-25-2024 Functional Status [facility] [facility] 05-25-2024 Functional Status [facility] 05-25-2024 Functional Status [facility] 05-25-2024 Functional Status [facility] 05-25-2024 Functional Status Max A [facility] 05-25-2024 Functional Status bilateral knee high domenic lied/on [facility] 05-24-2024 Functional Status [facility] 05-24-2024 Functional Status ice chips and sips take n [facility] 05-24-2024 Functional Status [facility] 05-24-2024 Functional Status [facility] 05-23-2024 Functional Status Linen Change Done [facility] 05-23-2024 Functional Status [facility] 05-23-2024 Functional Status Sensory Deficits None A [facility] 05-03-2024 Functional Status Multilevel armando e, Other: he lives in the basement. [facility] 05-03-2024 Functional Status bilateral knee high domenic lied/on [facility] 05-03-2024 Functional Status Done [facility] 05-03-2024 Functional Status [facility] 05-03-2024 Functional Status [facility] 05-03-2024 Functional Status [facility] 05-02-2024 Functional Status 7am-7pm [facility] 05-02-2024 Functional Status [facility] 05-02-2024 Functional Status [facility] 05-02-2024 Functional Status [facility] 05-02-2024 Functional Status [facility] 05-02-2024 Functional Status Sensory Deficits None A [facility] 05-01-2024 Functional Status Identified as high risk, Room located near nursing station, Door open, Room check performed [facility] 05-01-2024 Functional Status [facility] 05-01-2024 Functional Status [facility] 05-05-2023 Functional Status Room check performed [facility] 05-05-2023 Functional Status [facility] Mental Status Date Assessment Result Facility 05-26-2024 Mental Status Oriented x 4 [facility] 05[facility] Mental Status [facility] 05-25-2024 Mental Status [facility] 05-24-2024 Mental Status [facility] 05-03-2024 Mental Status Oriented x 4 [facility] 05-02-2024 Mental Status [facility] 05-02-2024 Mental Status [facility] 05-01-2024 Mental Status Orientation Oriented x 4 [facility] 05-01-2024 Mental Status [facility] 05-05-2023 Mental Status Orientation Oriented x 4 [facility] 05-05-2023 Mental Status [facility] Clinical Notes 07-22-2020 to 07-07-2024 Note Date & Type Note Facility 07-07-2024 Note [facility] 05-26-2024 Note [facility] 05-26-2024 Hospital Discharg e instructions Patient Education [...] Follow these instructions at home: Medicines Take ynho-agc-xdnycsm and prescription medicines only as told by your health care provider. Ask your health care provider if the medicine prescribed to you: ?Requires you to avoid driving or using heavy machinery. ?Can cause constipation. You may need to take actions to prevent or treat constipation, such as: ?Drink enough fluid to keep your urine pale yellow. ?Take tvci-wns-roymmmg or prescription medicines. ?Eat foods that are [...] and water are not available, use hand newspaper editor. ?Change your dressing as told by your [...] have some pain, swelling, and tenderness. Take jvsh-zub-afvstwz and prescription medicines only as told by [...] 02/01/2019 Document Revised: 02/01/2019 Document Reviewed: 02/01/2019 [employer] Patient Education 2020 [employer]. Follow Up Care 05/23/2024 09:51:10 With:ELIJAH OROZCO MD Address: [facility] [address] [place] [address]- When:1-2 days Comments:Please call the office to schedule a hospital follow up appointment. With:MATT RAMSEY DO Address: [address] [facility]/[place] [address]- [phone] When:Within 2 Week(s) Comments:Call office to verify/schedule appointment as soon as possible for post-op visit 2 weeks from discharge. [facility] 05-26-2024 Discharge summary Date of Service [...] tympanic membrane tube placement who presented to [facility] after experiencing a fall. Patient had [...] Physician - Ordered -- 05/23/24 13:50:00 EST, BYPRODUCTS OPERATOR, MATT DO, Routine, Right hip fracture Imaging [...] Where:[facility] [address] [place] [address]- Additional Information: Please call the office to schedule a hospital follow up appointment. Follow Up with MATT RAMSEY DO When:In 2 weeks Where:[address] [facility]/[place] [address]- [phone] Additional Information: Call office to verify/schedule appointment [...] JONEL MATIAS MD on 05/26/2024 03:52 PM [facility] 05-26-2024 Orthopaedic surgery Progress note Date [...] JHOAN OSPINA DO on 05/26/2024 06:42 AM [facility] 05-26-2024 Note Discharge Instructions Thank you for allowing [facility] to assist you with your healthcare needs. [...] OROZCO MD When:Within 1-2 days Where:[facility] [address] [place] [address]- Additional Information: Please call the office to schedule a hospital follow up appointment. Follow Up with MATT RAMSEY DO When:In 2 weeks Where:[address] [facility] [address]- [phone] Additional Information: Call office to verify/schedule appointment [...] right hip Duration: 7 Days Pickup at [facility]/pharmacy #[id number] Unchanged albuterol (albuterol MDI (90 mcg/ inh) [...] for as needed for sleep Pharmacy Information [facility]/pharmacy #[id number]: [address], [place] [phone] Please take this list to your next [...] may report side effects to FDA at [phone]-[phone]. What other drugs will affect acetaminophen and [...] affect acetaminophen and oxycodone, including prescription and mybm-vdf-rzyxcbu medicines, vitamins, and herbal products. Not all [...] to ensure that the information provided by [employer]. ('[employer]') is accurate, up-to-date, and complete, but no guarantee is made to that effect. Drug information contained herein may be time sensitive. [employer] information has been compiled for use by healthcare practitioners and consumers in the [place] and therefore [employer] does not warrant that uses outside of the [place] are appropriate, unless specifically indicated otherwise. [employer] drug information does not endorse drugs, diagnose patients or recommend therapy. [employer] drug information is an informational resource designed [...] effective or appropriate for any given patient. [employer] does not assume any responsibility for any aspect of healthcare administered with the aid of information [employer] provides. The information contained herein is not intended to cover all possible uses, directions, precautions, warnings, drug interactions, allergic reactions, or adverse effects. If you have questions about the drugs you are taking, check with your doctor, nurse or pharmacist. Copyright 8298-0484 [employer]. Version: 22.. Revision Date: 11/14/2022. Education Materials [...] Follow these instructions at home: Medicines Take ukbz-dut-bebgnhz and prescription medicines only as told by your health care provider. Ask your health care provider if the medicine prescribed to you: ? Requires you to avoid driving or using heavy machinery. ? Can cause constipation. You may need to take actions to prevent or treat constipation, such as: ? Drink enough fluid to keep your urine pale yellow. ? Take dkid-jmz-gimumqo or prescription medicines. ? Eat foods that [...] and water are not available, use hand newspaper editor. ? Change your dressing as told by [...] have some pain, swelling, and tenderness. Take cgpr-sof-hatlygj and prescription medicines only as told by [...] Document Reviewed: 02/01/2019 Elsevier Patient Education 2020 [employer] Additional Information VACCINATE! IT SAVES LIVES! Members of the community who have not yet received the COVID-19 vaccine and would like to receive it can visit one of [facility] vaccine clinics. There are many vaccine clinic locations within the [facility]. For locations and available times, please visit https://gettheshot.coronavirus.[place] io.gov/. It is important to note that some COVID mobile vaccine clinics are held outdoors and may be canceled in rainy or stormy conditions. To learn more about pediatric vaccinations (ages 5-11), we invite you to visit the [facility] webpage. https://www.Frugalos.org/pa ges/6757-Mdatt-Dnqvddnethu-Freque hbcw-Ahddz-Romngihpj.html To learn more about the COVID-19 vaccine, we invite you to visit the CDC website for a list of frequently asked questions.https://www.cdc.gov/cor onavirus/2019-ncov/vaccines/faq.h tml [facility] Patient Portal Access Instructions: Stay connected with your healthcare team and access your personal medical information anytime with the [facility] Patient Portal. Please follow the directions below to create your [facility] account: 1.Access the email account you provided upon registration to the hospital/physician office.2.Look for an invitation email from [facility].3.Open the email and access the invitation link: Accept Invitation to [facility].4.Fill in the required morales to create your account. To access your account, visit [employer]. Click the blue button labeled Access Patient [...] you will allow to register on the [facility] Patient Portal for access to your information. You can also access the [facility] Patient Portal on the [employer] domenic. Simply click on Patient Portal and then log into your account. If you would like to receive a full copy of your medical records, please contact the [facility] Medical Records Department by calling [phone], Friday through Friday between 8 a.m. and [...] Call your local pharmacy or go to [email or web address] to find one close to you.3.Make use of household items: Use cat litter or old coffee grounds to dispose medications if other options are not available. Mix your drugs with these household products, seal them in an airtight container and throw it into the garbage. Call [facility]: [phone] to be sure your drugs can be [...] aware that I should contact my doctor. Patient/Booth Supervisor Signature: Date/Time: Relationship to Patient: ____ Witness Name/Signature: Date/Time: [facility] 05-26-2024 Note Discharge Instructions Thank you for allowing [facility] to assist you with your healthcare needs. [...] Where:[facility] [address] [place] [address]- Additional Information: Please call the office to schedule a hospital follow up appointment. Follow Up with MATT RAMSEY DO When:In 2 weeks Where:[address] [facility]/[place] [address] [phone] Additional Information: Call office to verify/schedule appointment [...] right hip Duration: 7 Days Pickup at [facility]/pharmacy #[id number] Unchanged albuterol (albuterol MDI (90 mcg/ inh) [...] for as needed for sleep Pharmacy Information [facility]/pharmacy #[id number]: [address], [place] [phone] Please take this list to your next [...] to receive it can visit one of [facility] vaccine clinics. There are many vaccine clinic locations within the [facility]. For locations and available times, please visit https://gettheshot.coronavirus.[place] io.gov/. It is important to note that some COVID mobile vaccine clinics are held outdoors and may be canceled in rainy or stormy conditions. To learn more about pediatric vaccinations (ages 5-11), we invite you to visit the [facility] webpage. https://www.[facility].org/pa ges/8150-Cmnwn-Pcvhrlgcjpk-Freque npag-Kjepo-Zxmlmgszw.html To learn more about the COVID-19 vaccine, we invite you to visit the CDC website for a list of frequently asked questions.https://www.cdc.gov/cor onavirus/2019-ncov/vaccines/faq.h tml [facility] Patient Portal Access Instructions: Stay connected with your healthcare team and access your personal medical information anytime with the [facility] [email or web address] Patient Portal. Please follow the directions below to create your [facility] account: 1.Access the email account you provided upon registration to the hospital/physician office.2.Look for an invitation email from [facility].3.Open the email and access the invitation link: Accept Invitation to [facility] [email or web address].4.Fill in the required morales to create your account. To access your account, visit [email or web address]. Click the blue button labeled Access Patient [...] you will allow to register on the [facility] [email or web address] Patient Portal for access to your information. You can also access the [facility] [email or web address] Patient Portal on the [facility] [employer] domenic. Simply click on Patient Portal and then log into your account. If you would like to receive a full copy of your medical records, please contact the [facility] Medical Records Department by calling [phone], Friday through Friday between 8 a.m. and [...] Call your local pharmacy or go to http://bit.ly/0U2Cw3n to find one close to you.3.Make use of household items: Use cat litter or old coffee grounds to dispose medications if other options are not available. Mix your drugs with these household products, seal them in an airtight container and throw it into the garbage. Call [facility]: [phone] to be sure your drugs can be [...] aware that I should contact my doctor. Patient/Booth Supervisor Signature: Date/Time: Relationship to Patient: ____ Witness Name/Signature: Date/Time: [facility] 05-26-2024 Orthopaedic surgery Progress note Date [...] concerns. -We will discuss with attending, Dr. Guerrreo Digitally Signed by JHOAN OSPINA DO on 05/26/2024 06:42 AM [facility] 05-25-2024 Note Date of Service 05/25/2024 [...] and WBC count. 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 Plan of care discussed with patient as [...] JONEL MATIAS MD on 05/25/2024 09:19 AM [facility] 05-25-2024 Note Reason for Consultation Admission From: Home Consult Skin Team re: Pressure Staging - Ordered -- 05/23/24 17:52:38 EST Skin Team Findings Vitals and Measurements T: 37.1 C (Axillary) TMIN: 36.4 C (Oral) TMAX: 37.1 C (Axillary) HR: 101 RR: 18 BP: 150/78 SpO2: 98% Pressure Area Details ------Pressure Area------ Sacrum - Pressure Area Description: [place] Sacrum - Pressure Area Drainage: Scant, Serous [...] RN, Skin Team on 05/25/2024 08:53 AM [facility] 05-25-2024 Orthopaedic surgery Progress note Date [...] JHOAN OSPINA DO on 05/25/2024 05:59 AM [facility] 05-25-2024 Nurse Progress note Pt stated he does not want to be bothered from 12am-5am through the night. Educated on the importance of being turned while in bed to prevent skin break down and preventing wounds. Charge aware. Digitally Signed by Emilee Stokes LPN on 05/25/2024 12:24 AM [facility] 05-24-2024 Anesthesiology Consult note Patient: ADINA [...] АНДРЕЙ MOON MD on 05/24/2024 04:29 PM [facility] 05-24-2024 Pastoral care Progress note Pastoral [...] by Pantera Quintero on 05/24/2024 03:37 PM [facility] 05-24-2024 Note System generated consult for a documented pressure injury. The patient is off the unit for surgery. Plan for skin team to follow up another time. Digitally Signed by Brea Wilson RN, Skin Team on 05/24/2024 02:13 PM [facility] 05-24-2024 Note Exam Date Time Procedure Performing Provider Status 05/24/24 2:11 PM XR Fluoro 1-2 Hrs Tech Time Estrellita CHICAS DO; Auth (Verified) [id number] ORIGINAL EXAMINATION: DEBI MD - > 1 [...] 05/24/2024 2:25:34 PM Ordering Provider: MATT RAMSEY [id number] Orthopaedic surgery Consult note Date of Service 05/23/2024 Reason for Consultation Right intertrochanteric femur fracture Referring Physician ED History of Present Illness Patient is a 68-year-old male with a medical history of nephrectomy for kidney cancer and, CKD stage III, CLL, A-fib on Xarelto, DVT/PE with presence of IVC filter who presents to [facility] after sustaining a ground-level fall on [...] fracture surgery of the left hip at [facility] About 10 years ago. Review of Systems [...] 10.0, platelets 239 - Plan discussed with construction lineman attending Dr. Ramsey Procedure/Surgical History Nephrectomy Large [...] DE GUZMAN DO on 05/23/2024 02:39 PM [facility] [id number] Anesthesiology Consult note Patient: ADINA DAVID Age: [...] History: History is unknown. Procedure history: Stent ([id number]). Comments: 12/19/2022 11:21 MEHUL Kevin coronary Large bowel ([id number]). Comments: 12/19/2022 11:20 MEHUL Kevin resection Nephrectomy ([id number]). Comments: 12/19/2022 11:20 MEHUL Kevin right PTCA - Percutaneous transluminal coronary angioplasty ([id number]). Social History: Social & Psychosocial Habits Alcohol [...] Documentation reviewed: Current records. Assessment and Plan [place] [employer] Anesthesiologists (ASA) physical status classification: [...] HOLDEN ALEJANDRO DO on 05/24/2024 11:31 AM [facility] [id number] Respiratory therapy Hospital Progress note Respiratory Therapy [...] Surgical Status : General surgery Eveline Pratt [facility] - 05/24/2024 10:10 EST Chest X-Ray : Clear/none available/older than 3 days Eveline Pratt [facility] - 05/24/2024 10:13 EST Respiratory Pattern (RT) : RR 10-20 BPM, Regular pattern Eveline Pratt [facility] - 05/24/2024 10:10 EST Digitally Signed by Eveline Pratt on 05/24/2024 10:13 AM [facility] [id number] Orthopaedic surgery Consult note Date of Service 05/23/2024 Reason for Consultation Right intertrochanteric femur fracture Referring Physician ED History of Present Illness Patient is a 68-year-old male with a medical history of nephrectomy for kidney cancer and, CKD stage III, CLL, A-fib on Xarelto, DVT/PE with presence of IVC filter who presents to [facility] after sustaining a ground-level fall on [...] fracture surgery of the left hip at [facility] About 10 years ago. Review of Systems [...] 10.0, platelets 239 - Plan discussed with construction lineman attending Dr. Ramsey Procedure/Surgical History Nephrectomy Large [...] DE GUZMAN DO on 05/23/2024 02:39 PM [facility] [id number] Note Date of Service 05/24/2024 Chief Complaint 68 years old male with past medical history significant for chronic lymphocytic leukemia, right upper lobe lung nodule status post biopsy in 2023 reportedly benign, nephrectomy and CKD stage III, COPD, hypertension, hyperlipidemia, coronary artery disease without angina, obstructive sleep apnea, GERD, DVT/PE with presence of IVC filter, A-fib on Xarelto who presented to [facility] after experiencing a fall. Patient had [...] JONEL MATIAS MD on 05/24/2024 08:10 AM [facility] [id number] Orthopaedic surgery Consult note Date of Service 05/23/2024 Reason for Consultation Right intertrochanteric femur fracture Referring Physician ED History of Present Illness Patient is a 68-year-old male with a medical history of nephrectomy for kidney cancer and, CKD stage III, CLL, A-fib on Xarelto, DVT/PE with presence of IVC filter who presents to [facility] after sustaining a ground-level fall on [...] fracture surgery of the left hip at [facility] About 10 years ago. Review of Systems [...] 10.0, platelets 239 - Plan discussed with construction lineman attending Dr. Ramsey Procedure/Surgical History Nephrectomy Large [...] DE GUZMAN DO on 05/23/2024 02:39 PM [facility] [id number] History and physical note Date of Service [...] IVC filter, A-fib on Xarelto presented to [facility] after he had a fall at [...] calcifications, particularly at the left SFA and ADVANCED PRACTICE NURSE PSYCHOTHERAPIST.Correlate with any history of claudication.6. Small fat- containing left inguinal hernia. CT Head or Brain w/o Contrast Result Date: May 23, 2024 Verified By: OLIVIER CHCIAS DO CLINICAL STATEMENT: IMPRESSION: 1. No acute [...] right hip fracture Note was written using [employer] crisis clinician software. Some of the meaning of the words and sentences might have changed during crisis clinician, if there was ever some confusion about [...] REJI STEEN MD on 05/23/2024 07:46 PM [facility] [id number] Evaluation + Plan noteExtracted from: Title:History and [...] right hip fracture Note was written using [employer] crisis clinician software. Some of the meaning of the words and sentences might have changed during crisis clinician, if there was ever some confusion about the meaning of some sentences, please do not hesitate to contact me. [facility] 02-09-2025 Note* Exam Date Time Procedure Performing Provider Status 05/23/24 11:[address] Pelvis w/o Contrast OLIVIER CHICAS DO; Modified [id number] ADDENDUM ADDENDUM: Report should say intertrochanteric rather [...] calcifications, particularly at the left SFA and ADVANCED PRACTICE NURSE PSYCHOTHERAPIST. Large amount of rectal stool with distension [...] calcifications, particularly at the left SFA and ADVANCED PRACTICE NURSE PSYCHOTHERAPIST. Correlate with any history of claudication. 6. Small fat-containing left inguinal hernia. Interpreted by: Olivier Chicas DO Preliminary Report By: Olivier Chicas DO Electronically signed By Olivier Chicas DO Dictated Date: 05/23/2024 11:25:33 AM Prelim Date: 05/23/2024 11:30:00 AM Sign Date: 05/23/2024 11:30:00 AM Ordering Provider: VILMA MARTINEZ [facility] [id number] Note* Exam Date Time Procedure Performing Provider Status 05/23/24 11:18 AM XR Hip Right w/Pelvis 4 Views OLIVIER CHICAS DO; Modified [id number] ADDENDUM ADDENDUM: Report should say intertrochanteric rather [...] 05/23/2024 11:25:20 AM Ordering Provider: VILMA MARTINEZ [facility] [id number] Note* Exam Date Time Procedure Performing Provider Status 05/23/24 11:[address] Spine Cervical w/o Contrast MAXI PALOMO DO; Auth (Verified) [id number] ORIGINAL EXAMINATION: CT OF THE CERVICAL SPINE [...] 05/23/2024 11:39:01 AM Ordering Provider: VILMA MARTINEZ [facility] [facility]fh[facility] Note* Exam Date Time Procedure Performing Provider Status 05/23/24 11:17 AM XR Chest 1 View MAXI PALOMO DO; [facility] (Verified) [id number] ORIGINAL EXAMINATION: ONE XRAY VIEW OF THE [...] Date: 05/23/2024 11:28:54 AM Ordering Provider: VILMA [facility]02-09-2025 Note* Exam Date Time Procedure Performing Provider Status 05/23/24 11:[address] Head or Brain w/o Contrast OLIVIER CHICAS DO; Auth (Verified) [id number] ORIGINAL EXAMINATION: CT OF THE HEAD WITHOUT [...] 05/23/2024 11:24:05 AM Ordering Provider: VILMA MARTINEZ [facility]Znhxxefe53-37-5340 Note* Exam Date Time Procedure Performing Provider Status 05/23/24 10:14 AM EKG (ED) - CV VILMA MARTINEZ MD; Aut h (Verified) ECG Final Report SINUS RHYTHM LEFT ANTERIOR FASCICULAR BLOCK Electronic Signature: VILMA MARTINEZ MD 05/23/2024 11:42:59 [facility]Qgnqizhv09-21-0235 Note. MICRO - Microbiology PROCEDURE: Culture Respiratory [...] Locations *1: This test was performed at: [address], [facility] , [facility] [id number] Note. MICRO - Microbiology PROCEDURE: Urine Culture [...] Locations *1: This test was performed at: [facility], [address] [place] [address], [id number]- , [facility]01-20-2025 Pastoral care Progress note Pastoral Care Note [...] by Pantera Quintero on 05/03/2024 02:39 PM [facility] HospitalFchkatdp94-53-3360 Hospital Discharge instructions Patient Education 05/03/2024 10:47:36 Community-Acquired Pneumonia, Adult, Witg-vz-Skjh Community-Acquired Pneumonia, Adult Pneumonia is an infection [...] Follow these instructions at home: Medicines Take eipt-eer-tyyjfpc and prescription medicines only as told by [...] cannot use soap and water, use hand newspaper editor. Contact a doctor if: You have a [...] 09/16/2008 Document Revised: 07/21/2019 Document Reviewed: 11/26/2018 [employer] Patient Education 2020 [employer]. Follow Up Care 05/01/2024 18:41:02 With:ELIJAH OROZCO MD Address: [facility] [address] [place] [address] [address] [place] [address]- When:1-2 days Comments:Please call the office to schedule a hospital follow up appointment. With:JEYSON AGUIAR MD Address: [address] [facility] [address] [facility] [place] [address] [phone] When:Within 3 Week(s) only if needed Comments:Lung doctor that saw you in the hospital [facility] 01-20-2025 Discharge summary Date of Service [...] OROZCO MD When:Within 1-2 days Where:[facility] [address] [place] [address]- Additional Information: Please call the office to schedule a hospital follow up appointment. Follow Up with JEYSON AGUIAR MD When:In 3 weeks , only if needed [facility]:[address] [facility] [address] [place] [address] [phone] Additional Information: Lung doctor that saw you [...] russell Time Spent 40min Digitally Signed by KIRSTIN MAC MD on 05/03/2024 12:03 PM [facility] HospitalImppsvwc51-41-0526 Note Discharge Instructions Thank you for allowing [facility] to assist you with your healthcare needs. The following is importantdischarge information regarding your hospital visit. Your Care Team ELIJAH OROZCO MD What to do next Instructions From Your Doctor Take prednisone steroid and antibiotic cefdinir as prescribed. Follow up with all providers involved in your care. No other changes were made to your medication. Follow Up Appointments Follow Up with JEYSON AGUIAR MD When:In 3 weeks , only if needed Where:[address] [facility] [address] [place] [address]- [phone] Additional Information: Lung doctor that saw you in the hospital Follow Up with ELIJAH OROZCO MD When:Within 1-2 days Where:[facility] [address] [place] [address]- The Following Activity and Diet Have Been [...] Follow these instructions at home: Medicines Take wrvf-fyt-lstwcjs and prescription medicines only as told by [...] cannot use soap and water, use hand newspaper editor. Contact a doctor if: You have a [...] Document Reviewed: 11/26/2018 Elsevier Patient Education 2020 [employer] Additional Information VACCINATE! IT SAVES LIVES! Members of the community who have not yet received the COVID-19 vaccine and would like to receive it can visit one of [facility] vaccine clinics. There are many vaccine clinic locations within the [facility]. For locations and available times, please visit [email or web address]/. It is important to note that some COVID mobile vaccine clinics are held outdoors and may be canceled in rainy or stormy conditions. To learn more about pediatric vaccinations (ages 5-11), we invite you to visit the [facility] webpage. https://www.Frugalos.org/pages/0774-Orrum-Fqoujhsxepe-Defxrqjorm-Nkeps-Yvl stions.htmlTo learn more about the COVID-19 vaccine, we invite you to visit the CDC website for a list of frequently asked questions.https://www.cdc.gov/coronavirus/2019-ncov/vaccines/faq.html [facility] Patient Portal Access Instructions: Stay connected with your healthcare team and access your personal medical information anytime with the [facility] Patient Portal. Please follow the directions below to create your [facility] account: 1.Access the email account you provided upon registration to the hospital/physician office.2.Look for an invitation email from [facility].3.Open the email and access the invitation link: AcceptInvitation to [facility].4.Fill in the required morales to create your account. To access your account, visit [employer] Solutionst. Click the blue button labeled Access Patient [...] who you will allowto register on the [facility] Patient Portal for access to your information. You can also access the [facility] Portal on the [facility] Anywhere domenic. Simply click on Patient Portal and then log into your account. If you would like to receive a full copy of your medical records, please contact the [facility] Medical Records Department by calling [phone], Friday through Friday between 8 a.m. and [...] Call your local pharmacy or go to [email or web address] [email or web address] to find one close to you.3.Make use of household items: Use cat litter or old coffee grounds to dispose medications if other options arenot available. Mix your drugs with these household products, seal them in an airtight container andthrow it into the garbage. Call [facility]: [phone] to be sure your drugs can be [...] Signatures Patient Education Materials Community-Acquired Pneumonia, Adult, Cdrx-ml-Bkyy Medication Leaflets My discharge plan and instructions have been reviewed and explained to me and I,ADINA DAVID understand my current condition and have read and understand these discharge instructions. I have received awritten copy of the plan/instructions. If I have questions, I am aware that I should contact my doctor. Patient/Booth Supervisor Signature: Date/Time: Relationship to Patient: Witness Name/Signature: Date/Time: [facility] HospitalLaambhda29-66-9646 Note. MICRO - Microbiology PROCEDURE: Blood Culture [...] Locations *1: This test was performed at: [facility], [address] [place] [address], [facility] , [facility]01-19-2025 Note. MICRO - Microbiology PROCEDURE: Blood Culture [...] Locations *1: This test was performed at: [facility], [address] [place] [address], [address]- , [facility]01-19-2025 Evaluation + Plan noteExtracted from: Title:History and [...] DVT prophylaxis: SCDs Patient is full code [facility] 01-19-2025 Note* Exam Date Time Procedure Performing Provider Status 05/02/24 1:[address] Thorax w/o Contrast PANTERA PHILLIPS MD; Auth (Verified) [id number] ORIGINAL HISTORY: Cough, nodules COMPARISON: 05 May [...] Sign Date: 05/02/2024 1:27:50 PM Ordering Provider: [facility]01-19-2025 Note Date of Service 05/02/24 Subjective 68-year-old [...] KRISTIN MAC MD on 05/02/2024 12:13 PM [facility] HospitalIyuieczq95-15-5415 Pulmonary Consult note Date of Service 05/02/2024 Reason for Consultation Lung mass Referring Physician Dr. Kennedy History of Present Illness The patient is [...] artery disease status post stent placement at [facility] few years ago, and history of right nephrectomy due to cancer with chronic kidney disease resulting from that. The patient isvery knowledgeable about his past medical history. He gets most of his care at [facility]. Review of Systems Otherwise, no GI or [...] JEYSON AGUIAR MD on 05/02/2024 11:00 AM [facility] HospitalNstfcggb55-68-2302 Respiratory therapy Hospital Progress note Respiratory Therapy [...] Cherri Hurt RT on 05/02/2024 07:28 AM [facility] HospitalEypfoiyk30-22-4211 Note. MICRO - Microbiology PROCEDURE: Legionella Urine [...] Locations *1: This test was performed at: [address], [address]- , [facility] [id number] Note. MICRO - Microbiology PROCEDURE: Streptococcus Pneumoniae [...] Locations *1: This test was performed at: [address], [address]- , [facility] [id number] Note* Exam Date Time Procedure Performing Provider Status 05/02/24 5:19 AM Electrocardiogram - EKG - CV YASHIRA FORD MD; Auth (Verified) ECG Final Report Sinus rhythm Left anterior fascicular block Consider anterior infarct Electronic Signature: YASHIRA FORD MD 05/02/2024 20:37:46 [facility] HospitalAjfummon03-67-3235 Respiratory therapy Hospital Progress note Respiratory Therapy [...] Albuterol Q2hRT PRN per protocol Raine Tinajero APPEALS SPECIALIST - 05/02/2024 2:56 EST Pulmonary Status : [...] Therapy Evaluation Score : 8 Raine Tinajero APPEALS SPECIALIST - 05/02/2024 2:53 EST Digitally Signed by Raine Tinajero APPEALS SPECIALIST on 05/02/2024 02:53 AM Digitally Signed by Raine Tinajero APPEALS SPECIALIST on 05/02/2024 02:56 AM [facility] HospitalFrjkwbrh22-60-6279 History and physical note Date of Service [...] shortness of breath afterwards. Came to the [facility] ED for further evaluation. It should be [...] THERESA KENNEDY DO on 05/02/2024 02:48 AM [facility] HospitalPjrcaaln40-12-0559 Note* Exam Date Time Procedure Performing Provider Status 05/01/24 2:56 PM XR Chest 1 View PARRIS MAE MD; Auth (Verified) [id number] ORIGINAL EXAMINATION: ONE XRAY VIEW OF THE [...] 05/01/2024 3:07:49 PM Ordering Provider: NATASHA BERRY [facility]01-18-2025 Evaluation + Plan note Diagnostic Tests Pending * Culture Respiratory with Gram Stain 05/01/24 * Urine Culture 05/01/24 [facility] 12-07-2024 [facility]11-05-2024 [facility]10-25-2024 [facility] 02-06-2024 [facility]10-22-2024 [facility]09-19-2024 History of Present illness Narrative* Heaven Shelley, [...] [address] Heaven Shelley PTA documented in this encounterUniversity Hospitals Lake West Medical Center09-11-2024 History of Present illness Narrative* Андрей Mon, [...] -score by a minimum of 5 points. Ralph in home exercise program. Patient will demonstrate [...] Patient to be seen for Therapeutic exercise (92537), Neuromuscular re-education (24365), Therapeutic activities (70012), Gait Training (61018), Patient/Family/Caregiver Education PLAN FOR NEXT VISIT: Strength, Balance SUBJECTIVE: . Sold house and will likely be moving to [place] in 1 month. Compliant with HEP. Functional [...] - 2x4 A/P static stand 4: Quadruped Alt/[place] UE/LE Skilled Intervention: Skilled judgment used to assess appropriate program for balance and coordination activity. Billing Therapeutic Exercise Treatment Minutes: 25 Neuromuscular Re-Education Treatment Minutes: 15 Skilled Treatment Time Minutes (timed and untimed codes): 40 Total Session Time (minutes): 40 Session Start Time : 1235 Session Stop Time : 1315 Андрей Mon PT documented in this encounterUniversity Hospitals Lake West Medical Center08-23-2024 NoteHNO ID: [id number] Author: WILTON PALMA RN Service: ? Author Type: Registered Nurse Type: Progress Notes Filed: 12/05/2023 13:42 Note Text: [facility] Telephonic Outreach Provider Action/FYI Contacted for: Routine Telephonic Outreach Contact made with patient: No, unable to leave message. Wilton Palma RN December 05, 2023 1:36 [facility]08-23-2024 History of Present illness Narrative* Wilton Palma RN - 12/05/2023 1:36 PM EDT [facility] Telephonic Outreach Provider Action/FYI Contacted for: Routine Telephonic Outreach Contact made with patient: No, unable to leave message. Wilton Palma RN December 05, 2023 1:36 PM * Wilton Palma RN - 12/04/2023 12:00 PM EDT [facility] Telephonic Outreach Provider Action/FYI 11/03/23-11/15/23 [facility] Contacted for: Routine Telephonic Outreach Contact made with patient: No, unable to leave message. Will reattempt call Wilton Palma RN December 04, 2023 12:15 PM documented in this encounterUniversity Hospitals Lake West Medical Center08-22-2024 NoteHNO ID: [id number] Author: WILTON PALMA RN Service: ? Author Type: Registered Nurse Type: Progress Notes Filed: 12/05/2023 13:42 Note Text: [facility] Telephonic Outreach Provider Action/FYI 11/03/23-11/15/23 [facility] Contacted for: Routine Telephonic Outreach Contact made with patient: No, unable to leave message. Will reattempt call Wilton Palma RN December 04, 2023 12:15 [facility]08-22-2024 NotePatient Outreach (AMBCMG) ADINA DAVID ([id number]) 1955 Date Time Provider Department 12/04/23 WILTON PALMA AMBG During your visit today, we recorded the following information about you: Wilton Palma RN 12/05/2023 1:42 PM Signed [facility] Telephonic Outreach Provider Action/FYI 11/03/23-11/15/23 [facility] Contacted for: Routine Telephonic Outreach Contact made with patient: No, unable to leave message. Will reattempt call Wilton Palma RN December 04, 2023 12:15 PM Wilton Palma RN 12/05/2023 1:42 PM Signed [facility] Telephonic Outreach Provider Action/FYI Contacted [...] 1 DOSE SUBCUTANEOUSLY ONCE EVERY MONTH - elbhwpehhyw-xdsaxmtck-dhrlgofz (TRELEGY ELLIPTA) 100-62.5-25 mcg inhalation powder Inhale [...] unspecified chronicity, uns*12/01/2022 Coronary artery disease involving nansemond indian tribe falcon*12/02/2022 Other emphysema (HCC) [J43.8] 12/02/2022 Chronic [...] 12/13/2022 Encounter Status:Closed by WILTON PALMA on 12/05/23[facility]08-08-2024 History of Present illness Narrative* Андрей Mon, PT - 11/20/2023 6:29 PM EDT Program_ID:[id number] Access Code: [email or web address] URL: [email or web address] Date: 11-20-2023 Prepared By: Андрей Mon Program [...] -score by a minimum of 5 points. Ralph in home exercise program. Patient will demonstrate [...] Planned: 8 Planned Treatment Interventions: Therapeutic exercise (99495), Neuromuscular re- education (01648), Therapeutic activities (13571), Gait Training (47294), Patient/Family/Caregiver Education PLAN FOR NEXT VISIT: Strength, [...] and reviewed HEP* Access Code: [email or web address] URL: [email or web address] Date: 11/20/2023 Prepared by: Андрей Mon Exercises [...] 1847 Андрей Mon PT documented in this encounterUniversity Hospitals Lake West Medical Center07-31-2024 [facility]07-31-2024 Instructions* Patient Instructions* Hortencia Gallardo MD - 11/12/2023 11:26 AM EDT Magnesium supplement that doesn't cause diarrhea [email or web address]/ Phosphorus/calcium/vitamin D supplement https://[employer]/orczytwy-sato-m/ documented in this encounterUniversity Hospitals Lake West Medical Center07-31-2024 History of Present illness Narrative* Hortencia Gallardo [...] 3 months Hortencia Gallardo MD 11/12/2023 Staff Furniture Associate, [facility] [place] PRIMARY PROBLEM: iron def anemia, small bowel AVM's INTERVAL HISTORY: -Last seen -Ongoing iron deficiency anemia, ferritin 18 Hgb 9.5 last month -Received 3 iron infusions since then -No kori blood in the stool -Currently admitted to [facility] - Hgb 9.7 currently -Had pneumonia a [...] SUBCUTANEOUSLY ONCE EVERY MONTH 2 mL 0 vrhritlzowj-gtjavhksg-jvzcxaaj (TRELEGY ELLIPTA) 100-62.5-25 mcg inhalation powder Inhale [...] visit. Either the patient or their legal kiosk sales representative has been informed of the risks and benefits of -- and alternatives to -- treatment through a remote evaluation andconsents to proceed with the evaluation remotely. Patient consented to video visit. documented in this encounterUniversity Hospitals Lake West Medical Center07-31-2024 NoteHNO ID: [id number] Author: HORTENCIA GALLARDO MD Service: ? Author [...] 3 months Hortencia Gallardo MD 11/12/2023 Staff Furniture Associate, [facility] [place] PRIMARY PROBLEM: iron def anemia, small bowel AVM's INTERVAL HISTORY: -Last seen -Ongoing iron deficiency anemia, ferritin 18 Hgb 9.5 last month -Received 3 iron infusions since then -No kori blood in the stool -Currently admitted to [facility] - Hgb 9.7 currently -Had pneumonia a [...] SUBCUTANEOUSLY ONCE EVERY MONTH 2 mL 0 snmrpotstkb-oiriihuwi-rwtamacl (TRELEGY ELLIPTA) 100-62.5-25 mcg inhalation powder Inhale [...] The examination was ot (more content not included)...[facility]07-22-2024 [facility]07-22-2024 [facility]07-16-2024 NoteHNO ID: [id number] Author: WILTON PALMA RN Service: ? Author Type: Registered Nurse Type: Progress Notes Filed: 10/28/2023 13:24 Note Text: [facility] Telephonic Outreach Provider Action/FYI CDM: CKD Left a message to verify symptom status, instructed to contact PCP for condition changes and needs. Goals updated Contacted for: Routine Telephonic Outreach Contact made with patient: No, left message. Wilton Palma RN October 28, 2023 1:17 [facility]07-16-2024 History of Present illness Narrative* Wilton [...] 24, 2023 1:07 PM documented in this encounterUniversity Hospitals Lake West Medical Center07-15-2024 NoteHNO ID: [id number] Author: WILTON PALMA RN Service: ? Author [...] Wilton Palma RN October 27, 2023 11:32 [facility]07-12-2024 NoteHNO ID: [id number] Author: WILTON PALMA RN Service: ? Author [...] Wilton Palma RN October 24, 2023 1:07 [facility]07-12-2024 NotePatient Outreach (AMBCMG) ADINA DAVID ([id number]) 1955 M Date Time Provider Department 10/24/23 [...] 1 DOSE SUBCUTANEOUSLY ONCE EVERY MONTH - apsuwvqdgwm-bpwjyterh-tdfuxwvr (TRELEGY ELLIPTA) 100-62.5-25 mcg inhalation powder Inhale [...] unspecified chronicity, uns*12/01/2022 Coronary artery disease involving nansemond indian tribe falcon*12/02/2022 Other emphysema (HCC) [J43.8] 12/02/2022 Chronic deep vein thrombosis (DVT) of proximal *12/02/2022 AVM (a (more content not included)...[facility]07-05-2024 History of Present illness Narrative* Deysi Diop, CUTTER INSPECTOR - ASSISTANT WINEMAKER - 10/17/2023 12:40 PM EDT Images from [...] tablet daily. ergocalciferol (Vitamin D2) 1.25 MG (13593 UT) capsule TAKE 1 CAPSULE BY MOUTH [...] kidney Right COPD (chronic obstructive pulmonary disease) ([facility]) Diverticulitis Fractures back,left shoulder Heartburn Hemorrhoid High [...] PCP for further evaluation. documented in this [facility]06-12-2024 History of Present illness Narrative* Hortencia Gallardo [...] time FOLLOW-UP: Hortencia Gallardo MD 09/24/2023 Staff Furniture Associate, [facility] [place] PRIMARY PROBLEM: iron def anemia, small bowel [...] SUBCUTANEOUSLY ONCE EVERY MONTH 2 mL 0 ojskwltfhxl-anlvzugrk-abpokxig (TRELEGY ELLIPTA) 100-62.5-25 mcg inhalation powder Inhale [...] visit. Either the patient or their legal kiosk sales representative has been informed of the risks and benefits of -- and alternatives to -- treatment through a remote evaluation andconsents to proceed with the evaluation remotely. Patient consented to video visit. documented in this encounterUniversity Hospitals Lake West Medical Center06-12-2024 NoteHNO ID: [id number] Author: HORTENCIA GALLARDO MD Service: ? Author [...] time FOLLOW-UP: Hortencia Gallardo MD 09/24/2023 Staff Furniture Associate, [facility] [place] PRIMARY PROBLEM: iron def anemia, small bowel [...] SUBCUTANEOUSLY ONCE EVERY MONTH 2 mL 0 noptxzqgppn-ehbgspmox-owcdlzkv (TRELEGY ELLIPTA) 100-62.5-25 mcg inhalation powder Inhale [...] - No additional small (more content not included)...[facility] 09-19-2023 Telephone encounter Note* Telephone Encounter - Fidencio Mon RN - 09/19/2023 3:15 PM EDT Discussed with Dr. You to add pt 09/24/23 at 1600. Called pt to notify of sooner appt-no answer. Left VM with appt info. Fidencio Mon RN [facility]06-07-2024 Miscellaneous Notes* Telephone Encounter - Fidencio Mon [...] is still having. Kip documented in this encounterUniversity Hospitals Lake West Medical Center06-06-2024 NoteHNO ID: [id number] Author: WILTON PALMA RN Service: ? Author Type: Registered Nurse Type: Progress Notes Filed: 09/18/2023 16:54 Note Text: [facility] Telephonic Outreach Provider Action/FYI CDM: CKD Left a message to verify symptom status, instructed to contact PCP for condition changes and needs. Contacted for: Routine Telephonic Outreach Contact made with patient: No, left message. Wilton Palma RN September 18, 2023 4:53 [facility]06-06-2024 History of Present illness Narrative* Wilton [...] 17, 2023 5:23 PM documented in this encounterUniversity Hospitals Lake [facility] Center06-06-2024 Telephone encounter Note * Telephone Encounter - Tereza Sunshine - 09/18/2023 11:51 AM EDT 09/18/23 Patient calling for sooner appt.ed nurse cannot help with sooner appts. She can see if she can recommend anything for his internal bleeding issue he is still having. Kip [facility]06-05-2024 NoteHNO ID: [id number] Author: WILTON PALMA RN Service: ? Author Type: Registered Nurse Type: Progress Notes Filed: 09/18/2023 16:49 Note Text: [facility] Telephonic Outreach Provider Action/FYI CDM: CKD Left a message to verify symptom status, instructed to contact PCP for condition changes and needs. Contacted for: Routine Telephonic Outreach Contact made with patient: No, left message. Wilton Palma RN September 17, 2023 5:23 [facility]06-05-2024 NotePatient Outreach (AMBCMG) ADINA DAVID ([id number]) 1955 M Date Time Provider Department 09/17/23 [...] 1 DOSE SUBCUTANEOUSLY ONCE EVERY MONTH - awnebzjkdtq-dowysmuwn-rhvmghuc (TRELEGY ELLIPTA) 100-62.5-25 mcg inhalation powder Inhale [...] unspecified chronicity, uns*12/01/2022 Coronary artery disease involving nansemond indian tribe falcon*12/02/2022 Other emphysema (HCC) [J43.8] 12/02/2022 Chronic [...] insomnia [F51.01] 12/13/2022 [place] (more content not included)...[facility]04-30-2024 NoteHNO ID: [id number] Author: WILTON PALMA RN Service: ? Author [...] RN August 12, 2023 3:33 [facility] [facility] History of Present illness Narrative* Wilton [...] 11, 2023 12:02 PM documented in this encounterUniversity Hospitals Lake West [facility] Center04-29-2024 NoteHNO ID: [id number] Author: WILTON PALMA RN Service: ? Author Type: Registered Nurse Type: Progress Notes Filed: 08/12/2023 15:36 Note Text: CDM Telephonic Outreach Provider Action/FYI CDM: CKD Left a message to verify symptom status and needs. Instructed to call PCP with any symptom or condition changes. Contacted for: Routine Telephonic Outreach Contact made with patient: No, left message. Wilton Palma RN August 11, 2023 12:02 [facility]04-29-2024 NotePatient Outreach ([facility]BC[facility]) AIDNA DAVID ([id number]) 1955 [place] Date Time Provider Department 08/11/23 WILTON PALAM [facility] During your visit today, we recorded the following information about you: Wilton Palma RN 08/12/2023 3:36 PM Signed CDM Telephonic Outreach Provider Action/FYI CDM: CKD Left a message to verify symptom status and needs. Instructed to call PCP with any symptom or condition changes. Contacted for: Routine Telephonic Outreach Contact made with patient: No, left message. 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] 12/02/2022 History of gastrointestinal bleeding [Z87.19] 12/02/2022 Tachycardia [R00.0] 12/03/2022 Elevated troponin [R79.89] 12/03/2022 12/11/2022 Pulmonary nodules [R91.8] 12/05/2022 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[facility]04-12-[facility] Miscellaneous Notes* Telephone Encounter - Rowdy Asher LPN - 07/25/2023 11:35 AM EDT Per CMM domenic response: Repatha Approval received and reviewed. Approval good from 04/14/2023 through 07/24/2024. Lm on pt vm of rx approval. Rowdy Asher LPN * Telephone Encounter - Rowdy Asher LPN - 07/25/2023 11:34 AM EDT PA sent via [employer] domenic. Rowdy Asher LPN documented in this encounterUniversity Hospitals Lake West Medical Center04-04-2024 History of Present illness Narrative* Анрдей Mon PT - 07/17/2023 9:27 AM EDT [...] 924 Андрей Mon PT documented in this encounterUniversity Hospitals Lake West [facility] Center04-02-2024 History of Present illness Narrative* Kaleigh Mueller [...] 30 x 3 6: diagonals 3.5 pl [id number] 7: Leg ext 20# 3x15 8: Nustep 6min L5 9: Stretchboard for calf and soleus 5y57zgm 10: Leg press 80# 3x15 11: Mid row 4pl 3x15 12: Leg curl 35# 4f38-90 13: High row 5pl 8m19-39 14: Straight arm pull down 4pl 3x15 Skilled Intervention: Skilled judgment was used in selection of appropriate interventions. Billing Total Session Time (minutes): 45 Session Start Time : 1102 Session Stop Time : 1147 Kaleigh Mueller PTA documented in this encounterUniversity Hospitals Lake West Medical Center03-28-2024 NoteHNO ID: [id number] Author: WILTON PALMA RN Service: ? Author Type: Registered Nurse Type: Progress Notes Filed: 07/10/2023 15:48 Note Text: CDM Telephonic Outreach Provider Action/FYI CDM: CKD Left a message to verify symptom status, instructed to contact PCP for condition changes and needs. Contacted for: Routine Telephonic Outreach Contact made with patient: No, left message. Wilton Palma RN July 10, 2023 3:47 [facility]03-27-2024 NoteHNO ID: [id number] Author: WILTON PALMA RN Service: ? Author Type: Registered Nurse Type: Progress Notes Filed: 07/10/2023 15:48 Note Text: CDM Telephonic Outreach Provider Action/FYI CDM: CKD Left a message to verify symptom status, instructed to contact PCP for condition changes and needs. Contacted for: Routine Telephonic Outreach Contact made with patient: No, left message. Wilton Palma RN July 09, 2023 12:22 [facility]03-27-2024 NotePatient Outreach ([facility]) ADINA DAVID ([id number]) 1955 Date Time Provider Department 07/09/23 WILTON [...] Outreach [Other] Prescriptions as of 07/10/2023 - obzaqgxcmnp-asykefaus-llypjpke (TRELEGY ELLIPTA) 100-62.5-25 mcg inhalation powder Inhale [...] unspecified chronicity, uns*12/01/2022 Coronary artery disease involving nansemond indian tribe falcon*12/02/2022 Other emphysema (HCC) [J43.8] 12/02/2022 Chronic [...] Z*12/11/2022 Primary insomnia [F51.01 (more content not included)...[facility]03-21-[facility] History of Present illness Narrative* Pantera Steiner, [...] of Care: created on 05/16/23 through 08/14/23 Ralph in home exercise program. Patient will decrease [...] Patient to be seen for Therapeutic exercise (92019), Manual therapy (93880), Self-longterm management (05300), Aquatic PT (53830), Patient/Family/Caregiver Education, Group Therapy (06550) PLAN FOR NEXT VISIT: Continue land PT [...] 30 x 3 6: diagonals 3.5 pl [id number] 7: Leg ext 20# 3x15 8: Nustep 7min L4 9: Stretchboard 0a51gzh 10: Leg press 75# 3x15 11: Mid row 4pl 3x15 12: Leg curl 35# 1v84-14 13: High row 4pl 2s56-61 14: Straight arm pull down 4pl 3x15 [...] 1135 Pantera Steiner PT documented in this encounterUniversity Hospitals Lake [facility] Center03-19-2024 History of Present illness Narrative* Kaleigh Mueller [...] celso 8: Nustep 5min L4 9: Stretchboard 0y42xll 10: Leg press 70# 3x15 11: Mid row 4pl 3x10 12: Leg curl 30# 6i49-64 13: High row 4pl 6a38-85 Skilled Intervention: Skilled judgment was used in selection of appropriate interventions. Billing Total Session Time (minutes): 45 Session Start Time : 1000 Session Stop Time : 1045 Kaleigh Mueller PTA documented in this encounterUniversity Hospitals Lake [facility] Center03-14-2024 History of Present illness Narrative* Eileen Medrano [...] celso 8: Nustep 5min L4 9: Stretchboard 6j17hra 10: Leg press 70# 3x15 11: Mid row 4pl 3x10 12: Leg curl 30# 0u36-41 13: High row 4pl 8x72-72 Skilled Intervention: Patient was educated in proper [...] 909 Eileen Medrano PTA documented in this encounterUniversity Hospitals Lake [facility] Center03-08-2024 History of Present illness Narrative* Pantera Steiner, [...] of Care: created on 05/16/23 through 08/14/23 Ralph in home exercise program. Patient will decrease [...] Patient to be seen for Therapeutic exercise (62082), Manual therapy (38426), Self-longterm management (11944), Aquatic PT (41602), Patient/Family/Caregiver Education, Group Therapy (53332) PLAN FOR NEXT VISIT: Continue land PT [...] *Bridges 8: Nustep 5min L4 9: Stretchboard 7s04xkm 10: Leg press 70# 3x15 11: Mid row 4pl 3x10 12: Leg curl 30# 8e53-34 13: High row 4pl 5q21-90 Skilled Intervention: Patient was educated in proper [...] 1130 Pantera Steiner PT documented in this encounterUniversity Hospitals Lake [facility] Center02-22-2024 History of Present illness Narrative* Eileen Medrano [...] 1430 Eileen Medrano PTA documented in this encounterUniversity Hospitals Lake West [facility] Center02-19-2024 History of Present illness Narrative* Eileen Medrano [...] per flowsheet TREATMENT: Aquatic Therapy: Aquatic Therapy (24081): 10 1: Walk f/b/s 2: squats x [...] 924 Eileen Medrano PTA documented in this encounterUniversity Hospitals Lake West Medical Center02-16-2024 History of Present illness Narrative* Heaven Shelley [...] is in. He plans to travel to [place] in a few weeks. He has performed aquatic PT before and thought it would be helpful to get him moving without hurting more. He would also like to return to right fit class at gym. Patient reports fatigue after last visit but doing okay. Last visit was too early and didn't do as well. Goes to [employer] 2x/week. Has plans to go on vacation to [place] with dtr to visit friends Pain: Pain [...] 919 Heaven Shelley PTA documented in this encounterUniversity Hospitals Lake West Medical Center02-14-2024 History of Present illness Narrative* Kaleigh Mueller [...] is in. He plans to travel to [place] in a few weeks. He has performed aquatic PT before and thought it would be helpful to get him moving without hurting more. He would also like to return to right fit class at gym. Pain: Pain Pain Level: 5 Pain Location: Back OBJECTIVE MEASURES WITH LEVEL OF FUNCTION: Low stamina TREATMENT: Aquatic Therapy: Aquatic Therapy (75733): 8 1: walk 2: squats x10 3: [...] 0815 Kaleigh Mueller PTA documented in this encounterUniversity Hospitals Lake West [facility] Center02-13-2024 NoteHNO ID: [id number] Author: WILTON PALMA RN Service: ? Author Type: Registered Nurse Type: Progress Notes Filed: 06/02/2023 13:53 Note Text: CDM Telephonic Outreach Provider Action/FYI CDM: CKD Left a message to verify symptom status and needs. Instructed to call PCP with any symptom or condition changes. Contacted for: Routine Telephonic Outreach Contact made with patient: No, left message. Wilton Palma RN May 27, 2023 1:21 [facility]02-13-2024 History of Present illness Narrative* Wilton Palma RN - 05/27/2023 1:19 PM EST CDM Telephonic Outreach Provider Action/FYI CDM: CKD Left a message to verify symptom status and needs. Instructed to call PCP with any symptom or condition changes. Contacted for: Routine Telephonic Outreach Contact made with patient: No, left message. Wilton Palma RN May 27, 2023 1:21 PM documented in this encounterUniversity Hospitals Lake [facility] Medical Center02-13-2024 NotePatient Outreach ([facility]) ADINA DAVID ([id number]) 1955 M Date Time Provider Department 05/27/23 [facility] During your visit today, we recorded the [...] Outreach [Other] Prescriptions as of 06/02/2023 - imuabbuzgkg-swjmvouqr-jaynkvas (TRELEGY ELLIPTA) 100-62.5-25 mcg inhalation powder Inhale [...] unspecified chronicity, uns*12/01/2022 Coronary artery disease involving nansemond indian tribe falcon*12/02/2022 Other emphysema (HCC) [J43.8] 12/02/2022 Chronic [...] 12/13/2022 Encounter Status:Closed by WILTON PALMA on 06/02/23[facility]02-02-2024 History of Present illness Narrative* Pantera Steiner, [...] of Care: created on 05/16/23 through 08/14/23 Ralph in home exercise program. Patient will decrease [...] Planned: 12 Planned Treatment Interventions: Therapeutic exercise (36832), Manual therapy (48171), Self-longterm management (78611), Aquatic PT (61053), Patient/Family/Caregiver Education, Group Therapy (46547) PLAN FOR NEXT VISIT: Initiate aquatic therapy [...] is in. He plans to travel to [place] in a few weeks. He has performed aquatic PT before and thought it would be helpful to get him moving without hurting more. He would also like to return to right [employer] class at gym. Patient Goals: resolve pain Functional Limitations: sitting, rising from a chair, standing, walking, physical activities, recreational activities, sleeping Prior Level of Function: Independent without limitations Relevant History Past Relevant Medical Conditions: Cancer, Hypertension, Falls, Blood Disorders, Covid Employment: Retired Recreation / Current Exercise: right [employer] class-2x per week Intake Information: Prescription present [...] 909 Pantera Steiner PT documented in this encounterUniversity Hospitals Lake [facility] Center01-23-2024 Hospital Discharge instructions Patient Education 05/05/2023 23:40:33 [...] back pain in a person with cancer 5912-2579 [employer]. [address] [place] [address] 04852. All rights reserved. This information is not intended as a substitute for professional medical care. Always follow yourhealthcare professional's instructions. Follow Up Care 05/05/2023 20:55:19 With:ULISES RAMOS DO Address: [address] [place] [phone] When:2-4 days [facility] 01-22-2024 Note Discharge Instructions Thank you for allowing [facility] to assist you with your healthcare needs. [...] RAMOS DO When Within 2-4 days Where: [address] [place] [address] [phone] Allergies doxycycline penicillin Medications Please ask your primary doctor or pharmacist before taking any other medication not listed, including over the counter drugs, herbal medications, vitamins and or supplements as they may interact withyour home medications. What How Much When Why Instructions Last Dose New acetaminophen-hydrocodone ([place]gate 325- 5 mg oral tablet) 1 tab(s) [...] may report side effects to FDA at 5-584-BPK-3528. What other drugs will affect acetaminophen and [...] affect acetaminophen and hydrocodone, including prescription and kiyq-oip-eucherj medicines, vitamins, and herbal products. Not all [...] to ensure that the information provided by [employer] ('[employer]') is accurate, up-to-date, and complete, but no guarantee is made to that effect. Drug information contained herein may be time sensitive. [employer] information has been compiled for use by healthcare practitioners and consumers in the [place] and therefore [employer] does not warrant that uses outside of the [place] are appropriate, unless specifically indicated otherwise. [employer]'s drug information does not endorse drugs, diagnose patients or recommend therapy. [employer] drug information isan informational resource designed to [...] effective or appropriate for any given patient. [facility] does not assume any responsibility for any aspect of healthcare administered with the aid of information The [facility] provides. The information contained herein is not intended to cover all possible uses, directions, precautions, warnings, drug interactions, allergic reactions, or adverse effects. If you have questions about the drugs you are taking, check with your doctor, nurse or pharmacist. Copyright 8976-3007 [facility] [employer]. Version: 19.. Revision Date: 12/02/2022. Education Materials [...] back pain in a person with cancer 3839-7679 [employer]. [address] [place] [address] 80647. All rights reserved. This information is not intended as a substitute for professional medical care. Always follow yourhealthcare professional's instructions. Additional Information VACCINATE! IT SAVES LIVES! Members of the community who have not yet received the COVID-19 vaccine and would like to receive it can visit one of [facility] vaccine clinics. There are many vaccine clinic locations within the [facility]. For locations and available times, please visit www.[email or web address].[place].gov/. It is important to note that some COVID mobile vaccine clinics are held outdoors and may be canceled in rainy or stormy conditions. To learn more about pediatric vaccinations (ages 5-11), we invite you to visit the [facility] webpage. [email or web address]/[email or web address]-Uhcnp-Agsnownrqyz-Ftitofmqja-Gwyke-Siq stions.htmlTo learn more about the COVID-19 vaccine, we invite you to visit the CDC website for a list of frequently asked questions. https://www.cdc.gov/coronavirus/2019-ncov/vaccines/faq.html [facility] Patient Portal Access Instructions: Stay connected with your healthcare team and access your personal medical information anytime with the [facility] Patient Portal. If you would like a full copy of your medical records please contact the [facility] Medical Records Department Friday through Friday between 8a.m. and 4:30p.m. Please follow the directions below to access the portal: 1.Access the email account you provided upon registration to the [facility].2.Look for an invitation email from [facility].3.Open the email and access the invitation link: Accept Invitation to [facility]4.Fill in the required morales to create your account. Sign into www.[employer] with your username and password that you [...] you will allow to register on the [facility] Patient Portal for access to your information. You can also access the [facility] Patient Portal on the [employer]. Simply click on Health Records under [employer] and then click on the WebNotes logo. HOW TO SAFELY DISPOSE OF PRESCRIPTION [...] Call your local pharmacy or go to [email or web address] to find one close to you.3.Make use of household items: Use cat litter or old coffee grounds to dispose medications if other options arenot available. Mix your drugs with these household products, seal them in an airtight container andthrow it into the garbage. Call [facility]: [phone] to be sure your drugs can be [...] aware that I should contact my doctor. 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/Booth Supervisor Signature: Date/Time: Relationship to Patient: Witness Name/Signature: Date/Time: [facility]01-22-2024 Note ORIGINAL EXAMINATION: 3 XRAY VIEWS [...] Date: 05/05/2023 11:15:21 PM [facility] Note ORIGINAL EXAMINATION: CT OF THE [...] Date: 05/05/2023 11:06:53 PM Ordering Provider: [facility]24 Note ORIGINAL EXAMINATION: CT OF THE HEAD [...] Sign Date: 05/06/2023 12:09:18 AM Ordering Provider: [facility]01-22-2024 Note ORIGINAL EXAMINATION: CT OF THE CHEST [...] Sign Date: 05/05/2023 11:20:44 PM Ordering Provider: [facility]01-12-2024 NoteHNO ID: [id number] Author: WILTON PALMA RN Service: ? Author Type: Registered Nurse Type: Progress Notes Filed: 04/25/2023 15:43 Note Text: CDM Telephonic Outreach Provider Action/FYI CDM: CKD Left a message to verify symptom status, instructed to call PCP with any changes in condition?or needs. Contacted for: Routine Telephonic Outreach Contact made with patient: No, left message. Wilton Palma RN April 25, 2023 3:42 [facility]01-10-2024 NoteHNO ID: [id number] Author: WILTON PALMA RN Service: ? Author Type: Registered Nurse Type: Progress Notes Filed: 04/25/2023 15:43 Note Text: CDM Telephonic Outreach Provider Action/FYI CDM: CKD Left a message to verify symptom status, instructed to call PCP with any changes in condition?or needs. Contacted for: Routine Telephonic Outreach Contact made with patient: No, left message. 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 Author [...] RN March 17, 2023 12:[facility] History of Present illness Narrative* Wilton [...] 12, 2023 9:14 AM documented in this encounterUniversity Hospitals Lake [facility] Center11-29-2023 NoteHNO ID: [id number] Author: Wilton Palma RN Service: ? Author Type: Registered Nurse Type: Progress Notes Filed: 03/17/2023 12:39 PM Note Text: CDM Telephonic Outreach Provider Action/FYI CDM: CKD Left a message to verify symptom status, instructed to call PCP with any changes in condition?or needs. Contacted for: Routine Telephonic Outreach Contact made with patient: No, left message. 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 CIRA 7. DVT/PE?: did not take anticoagulation: hospitalized on 11/2022 at [facility] for this, back in 12/2022 with [...] oral, Daily ergocalciferol (Vitamin D-2) 1.25 MG (04212 UT) capsule escitalopram (LEXAPRO) 5 mg, oral, Daily fluticasone (Flonase) 50 mcg/actuation nasal spray 1 spray, Each Nostril, Daily vyfrqnrfwna-hyhpcnmcy-snzuhzfy (Trelegy Ellipta) 100-62.5-25 mcg blister with device [...] for a Watchman procedure. documented in this encounterBlanchard [facility] Work Phone: 1(313) 479-987010-14-2023 NoteHNO ID: [id number] Author: Note, Interface Service: ? Author Type: ? Type: Progress Notes Filed: 01/25/2023 2:22 AM Note Text: Epic Scheduled Downtime: 01/25/2023 1:00:00 AM to 01/25/2023 1:28:00 [facility]10-10-2023 Miscellaneous Notes* Telephone Encounter - Lucio Juan MA - 01/21/2023 2:58 PM EDT Fyi- called patient to schedule his follow up appt. Pt declined and states he is no longer following up with [facility] providers-mir documented in this encounterUniversity Hospitals Lake [facility] Center10-06-2023 Miscellaneous Notes* Telephone Encounter - Marielos Schwartz - 01/17/2023 9:15 AM EDT MRO faxed and placed in scanned bin documented in this encounterUniversity Hospitals Lake West Medical Center10-04-2023 NoteHNO ID: [id number] Author: Wilton Palma RN Service: ? Author [...] he is not unhappy or upset with 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.but with the other providers. Contacted for: Routine Telephonic Outreach Contact made with patient: Yes Patient identified by name and date of . Discussed care with patient Are you experiencing any new or worsening symptoms you need to talk about today? Yes Wilton Palma RN January 15, 2023 11:51 [facility]10-04-2023 History of Present illness Narrative* Wilton Palma RN - 01/15/2023 11:27 AM EDT [facility] Telephonic Outreach Provider Samia/KIMO Vazquezk with Pt he noted was Admitted to [facility] 12/[facility]/22-12/11/22 he noted was not happy with care. he reported is firing all [facility] providers. Pt noted will have an ultrasound of his right leg today, attempted to assess for symptoms and care needs, but was unable, Pt states he is not unhappy or upset with 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.but with the otherproviders. Contacted for: Routine Telephonic Outreach Contact made with patient: Yes Patient identified by name and date of . Discussed care with patient Are you experiencing any new or worsening symptoms you need to talk about today? Yes Wilton Palma RN January 15, 2023 11:51 AM documented in this encounterUniversity Hospitals Lake West Medical [facility] NotePatient Outreach (AMBC[facility]) ADINA DAVID ([id number]) 1955 M Date Time Provider Department 01/15/23 WILTON PALMAChantelle During your visit today, we recorded the following information about you: Wilton Palma, RN 02/03/2023 6:20 PM Signed [facility] Telephonic Outreach Provider Samia/KIMO Vazquezk with Pt he noted was Admitted to [facility] 12/01/22-12/11/22 he noted was not happy with care. he reported is firing all [facility] providers. Pt noted will have an ultrasound of his right leg today, attempted to assess for symptoms and care needs, but was unable, Pt states he is not unhappy or upset with 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.but with the other providers. 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 [facility] [id number] Miscellaneous Notes* Telephone Encounter - Quentin Guidry RN - 01/10/2023 3:29 PM EDT Call transfer received from Roland Ureña said pt needs handicap placard ordered on 12/19/22 (pending) to be sent to [facility] via fax at the request of the [facility] kiosk sales representative on the line then transferred the call over. Messaged building custodial supervisor TRAVON Cooney if ok to send Placard order to [facility] at pt's request. Ivet said ok. Placard sent to [facility] at their fax number as requested. Quentin Guidry LPN documented in this encounterUniversity Hospitals Lake West Medical Center09-22-2023 Miscellaneous Notes* Telephone Encounter - Quentin Guidry RN - 01/03/2023 4:03 PM EDT Pt needs rescheduled (Appointment date 03/05/23) due to Dr Halle Dale schedule change. Pt unavailableat home phone. Left message on vLinemail for return call. Quentin Guidry LPN documented in this encounterUniversity Hospitals Lake West Medical Center09-20-2023 NoteHNO ID: [id number] Author: Maddie White RN Service: ? Author Type: Registered Nurse Type: Progress Notes Filed: 01/01/2023 2:18 PM Note Text: TRANSITION CARE MANAGEMENT (TCM) FOLLOW-UP NOTE Provider Action/FYI Chart reviewed. Per chart notes for [facility], pt has been admitted to inpatient at [facility]. No further follow-up at this time. Summary: Pt discharged from [facility] on 12/[facility]. Admitted for: SOB, fatigue-Chronic pulmonary embolism Signature Maddie White RN [facility] 01[facility] History of Present illness Narrative* Maddie White RN - 01/01/2023 2:15 PM EDT TRANSITION CARE MANAGEMENT (TCM) FOLLOW-UP NOTE Provider Action/FYI Chart reviewed. Per chart notes for [facility], pt has been admitted to inpatient at [facility]. No further follow-up at this time. Summary: Pt discharged from [facility] on 12/11/22. Admitted for: SOB, fatigue-Chronic pulmonary embolism Signature Maddie White RN January 01, 2023 documented in this encounterUniversity Hospitals Lake West Medical Center09-20-2023 NotePatient Outreach ([facility]) ADINA DAVID ([id number]) 1955 M Date Time Provider Department 01/01/23 MADDIE WHITE During your visit today, we recorded the following information about you: Maddie White RN 01/01/2023 2:18 PM Signed TRANSITION CARE MANAGEMENT (TCM) FOLLOW-UP NOTE Provider Action/FYI Chart reviewed. Per chart notes for [facility], pt has been admitted to inpatient at [facility]. No further follow-up at this time. Summary: Pt discharged from [facility] on 12/11/22. Admitted for: SOB, fatigue-Chronic pulmonary [...] tablet by mouth daily at bedtime. - xpeplvgwfpe-kzelanvyk-ssjuzmoo (TRELEGY ELLIPTA) 100-62.5-25 mcg inhalation powder Inhale [...] unspecified chronicity, uns*12/01/2022 Coronary artery disease involving nansemond indian tribe falcon*12/02/2022 Other emphysema (HCC) [J43.8] 12/02/2022 Chronic [...] 12/13/2022 Encounter Status:Closed by MADDIE WHITE on 01/01/23[facility] 12-30-2022 Miscellaneous Notes* Telephone Encounter - Jenifer Lloyd LPN - 12/30/2022 11:27 AM EDT Halle Dale MD, [facility] received a referral for [facility] services. Frankie is currently inpatient at [facility]. At this time we will be canceling the referral. Thank you, Jenifer Lloyd LPN Central Admissions Intake Nurse documented in this encounterUniversity Hospitals Lake West Medical Center09-12-2023 Miscellaneous Notes* Telephone Encounter - Marley Falk RD - 12/24/2022 12:04 PM EDT Received consult from Dr. Dale regarding patient's weight loss and poor appetite. Called and spoke to patient's daughter, who states patient is currently admitted to [facility] with the potential of being discharged to a rehab facility. I explained patient would be followed by an RD atrehab. Family is interested hot meal delivery if patient is able to go back home. Provided my contact information for daughter to follow up once patient is d/c from rehab. Marley Falk RD documented in this encounterUniversity Hospitals Lake West Medical Center09-11-2023 Miscellaneous Notes* Telephone Encounter - Sue Raygoza LPN - 12/23/2022 5:[address] Dale, Thank you for the referral for Adina to [facility] with [facility]. In reviewing your office note, he is has respiratory symptoms that could use nursing intervention and on going assessment. Would you be agreeable to adding SN to the order as well as the diagnosis the CLL (chronic lymphocytic leukemia) (HCC)? Thank you, Sue Raygoza LPN * Telephone Encounter - Sue Raygoza LPN - 12/20/2022 6:[address] Dale, Thank you for the referral for Adina to [facility] care [facility] with [facility]. In reviewing your office note, he is has respiratory symptoms that could use nursing intervention and on going assessment. Would you be agreeable to adding SN to the order as well as the diagnosis the CLL (chronic lymphocytic leukemia) (HCC)? Thank you, Sue Raygoza LPN documented in this encounterUniversity Hospitals Lake West Medical Center09-11-2023 Note. MICRO - Microbiology PROCEDURE: Blood Culture [...] Locations *1: This test was performed at: [address], [address]- , [facility]22 Note. MICRO - Microbiology PROCEDURE: Blood Culture [...] Locations *1: This test was performed at: [address], [address]- , [facility]12[facility]2022 Note. MICRO - Microbiology PROCEDURE: Urine Culture [...] Locations *1: This test was performed at: [facility], [address] [place] [address], [address]- , [facility]12-19-2022 History of Present illness Narrative* Halle Dale MD - 12/19/2022 5:34 PM EDT PROGRESS NOTE 12/18/2022 Chief Complaint: Mr. Adina David is here to follow up his hematological conditions (CLL, MPN, VTE, bleeding) Interval History: Here to follow up. Accompanied by daughter. He was recently hospitalized at [facility] due to acute respiratory failure. PET [...] weekend. Scheduled for bronchoscopy with his primary hadoop application developer at [facility] tomorrow. He's barely [...] capsule (VITAMIN D2, DRISDOL) once every month. zsnmldupgme-cadjghiyl-eeavldym (TRELEGY ELLIPTA) 100-62.5-25 mcg inhalation powder Inhale [...] Lymph 1.00 - 4.00 k/uL 44.38 (H) Brooke% % 4.0 Abs Brooke <0.87 k/uL 2.19 (H) Eosin% % 0.0 [...] 08/28, and 10/10. 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 GIB - admitted to [facility] in 04/2021 with Hb 4.8, transfused 7 [...] 08/16, 08/28, 10/10. He underwent endoscope at [facility] on 10/09/2022, found bleeders s/p endoscopic [...] Level: 4 - Moderate documented in this [facility]09-07-2023 Miscellaneous Notes* Telephone Encounter - Pratibha De La Rosa MA - 12/19/2022 3:53 PM EDT Patient has been notified of recent PSA results and has verbalized his understanding. Pratibha De La Rosa MA documented in this [facility]09-07-2023 Miscellaneous Notes* Telephone Encounter - Pantera Irwin MA - 12/19/2022 8:08 AM EDT Left message for pt to call back office Pantera Irwin MA * Telephone Encounter - Pantera Irwin MA - 12/19/2022 8:08 AM EDT ----- Message from Loy Mcallister MD sent at 12/18/2022 6:30 PM EDT ----- Notify patient PSA has come down to 3.18. documented in this encounterUniversity Hospitals Lake West Medical Center09-01-2023 Miscellaneous Notes* Addendum Note - Nakul Gallegos MD - 12/13/2022 1:05 PM EDTAddended by: NAKUL GALLEGOS on: 12/13/2022 01:05 PM Modules accepted: Orders documented in this [facility]09-01-2023 NoteHNO ID: [id number] Author: Nakul Gallegos MD Service: ? Author Type: Physician Type: Progress Notes Filed: 12/13/2022 12:59 PM Note Text: [facility] DEPARTMENT OF PULMONARY MEDICINE Date: December 13, 2022 Patient Name: Adina David Adina David is a 67 year old yr old male, presents to the [facility] [place] for evaluation of CIRA and insomnia. Patient [...] for internal providers or letter via the [employer] for external providers. Patient Entered Questionnaires: PROMIS Global Health - (T-Scores - the mean of general population = 50. Five points is a clinically meaningful difference.) 05/31/2022 05/31/2022 12/05/2021 Physical T-Score 29.6 29.6 34.9 Mental T-Score 36.3 36.3 - Modified Medical Research [place] Dyspnea Scale (MMRC) I am too breathless to leave the house or I am breathless when dressing 4 Daily cough: Yes Daily Sputum: Yes IMMUNIZATIONS: Immunization History Administered Date(s) Administered COVID-19 original vaccine, age 12+ yr, monovalent ([employer] - [place]) 07/24/2021 COVID-19 original vaccine, [...] congestionno, epistaxis no. GI: (more content not included)...[facility]09-01-2023 History of Present illness Narrative* Nakul Gallegos MD - 12/13/2022 10:57 AM EDT Images from the original note were not included. [facility] DEPARTMENT OF PULMONARY MEDICINE Date: December 13, 2022 Patient Name: Adina David Adina David is a 67 year old yr old male, presents to the [facility] [place] for evaluation of OSAand insomnia. Patient has [...] for internal providers or letter via the [employer] for external providers. Patient Entered Questionnaires: PROMIS Global Health - (T-Scores - the mean of general population = 50. Five points is a clinicallymeaningful difference.) 05/31/2022 05/31/2022 12/05/2021 Physical T-Score 29.6 29.6 34.9 Mental T-Score 36.3 36.3 - Modified Medical Research [place] Dyspnea Scale (MMRC) I am too breathless to leave the house or I am breathless when dressing 4 Daily cough: Yes Daily Sputum: Yes IMMUNIZATIONS: Immunization History Administered Date(s) Administered COVID-19 original vaccine, age 12+ yr, monovalent ([employer] - [facility]) 07/24/2021 COVID-19 original vaccine, full dose, monovalent [...] 16 Ht 5' 10 (1.78m) SpO2 88% http://www.calculator.net/tjfsh-cayvuh-xagrfrvota.html GEN: Breathingnonlabored, Cachexia not present . HEENT: [...] Collected: 07/18/2022 2:43 PM (Final result) Narrative: [facility] [address] [place] [place] [address] Test Date: 2022-07-18 Pat Name: ADINA DAVID Department: Room: Gender: Male Corporate Travel Coordinator: : 1955 Requested By: Order Number: [id number] Reading MD: Albino Hardy MD Interpretive Statements PT ID checked birthdate/ last name PSP - Spirometry results were repeatable. PSP - Spirometry results were repeatable. Aerosol Albuterol 0.83% used as bronchodilator IMPRESSION: Spirometry indicates moderate obstruction. There is no significant bronchodilator response. Electronically Signed On 07-19-2022 8:02:07 EDT by Albino Hardy MD ID: [id number] Name: ADINA DAVID Race: White Ht: 70.00 in Wt: 199.00 lbs Age: 66 Gender: Male : 1955 Dx: Chronic obstructive pulmonary disease with (acute) exacerbation Smoking Hx: Non-smoker Doctor: ULISES RAMOS Test Date: 07/18/2022 Site: [facility] Tech: Olivier Mckeon PRE-BRONCH POST-BRONCH Pre LLN [...] 0.50 23 FIVC (L) 4.36 4.22 -3 PFA13-39 (L/sec) 0.90 1.11 2.51 4.47 36 0.77 [...] counseling Nakul Gallegos MD documented in this encounterUniversity Hospitals Lake West Medical Center08-31-2023 NoteHNO ID: [id number] Author: Maddie White RN Service: ? Author Type: Registered Nurse Type: Progress Notes Filed: 12/12/2022 11:50 AM Note Text: TCM Home Visit Referral Source of Stratification: [facility] Admission Status: Discharged Readmission Risk [...] Status: In-Network Discharge Pt discharged from [facility] on 12/11/22. Admitted for: SOB, fatigue-Chronic pulmonary embolism Contact made with patient: Yes Hi my name is Maddie White RN and I am calling from the [facility] on behalf of your PCP, Ulises Ramos, [...] like to speak with a social work steam tender to help give you support for any [...] I will send your request to a computer processing scheduler who will contact and assist you [...] way if possible). NYDIA Education Ordered -: [facility]08-31-2023 NotePatient Outreach ([facility]MG) ADINA DAVID ([id number]) 1955 M Date Time Provider Department 12/12/22 MADDIE WHITE During your visit today, we recorded the following information about you: Maddie White RN 12/12/2022 11:50 AM Signed TCM Home Visit Referral Source of Stratification: [facility] Admission Status: Discharged Readmission Risk [...] Network Status: In-Network Discharge Pt discharged from [facility] on 12/11/22. Admitted for: SOB, fatigue-Chronic pulmonary embolism Contact made with patient: Yes Hi my name is Maddie White RN and I am calling from the [facility] on behalf of your PCP, Ulises Ramos, [...] like to speak with a social work steam tender to help give you support for any [...] I will send your request to a computer processing scheduler who will contact and assist you [...] Cmt: TCM initia (more content not included)... [facility]08-30-2023 NoteHNO ID: [id number] Author: Kirill Palacio RPh Service: Pharmacy Author [...] time from Discharge Medication List. Tatyanamary Matias [facility] December 11, 2022 4:12 PM Pager: [phone] 12/11/2022 4:12 PM Medication List START taking [...] ELLIPTA 100-62.5-25 mcg inhalation powder Generic drug: vzsxqiupjjy-nevfipauj-ugfpbtri Inhale 1 Puff as instructed once daily. [...] Your Medications These medications were sent to [facility] [address] [place] [id number] Hours: Friday-Friday 7am-8pm, Friday, Friday and Holidays 9am-5pm enoxaparin 40 mg/0.4 mL metoprolol tartrate (short acting) 25 mg tablet sodium bicarbonate 650 mg tablet These medications were sent to [facility] [address] [place] [address] [place], [place] [id number] hydroxyurea 500 mg capsule TRELEGY ELLIPTA 100-62.5-25 mcg inhalation powderUniversity Hospitals [facility]wood [facility] Center 12-11-2022 NoteHNO ID: [id number] Author: Vahe Cancino Service: ? Author Type: Operator Coating Furnace Type: Plan of Care Filed: 12/11/2022 4:06 PM Note Text: PHARMACY BEDSIDE DELIVERY SERVICE Patient Name: Adina David The marked outpatient medications were Filled at[facility] and delivered to the patient's [...] ELLIPTA 100-62.5-25 mcg inhalation powder Generic drug: grgbiqvkyjl-fqhsywtgt-zinvrkpq Inhale 1 Puff as instructed once daily. [...] Commonly known as: VALTREX Vahe Cancino PAGER: [phone] December 11, 2022 4:05 [facility]08-29-2023 NoteHNO ID: [id number] Author: Ki Levin MD Service: Hematology/Oncology Author Type: Physician Type: Plan of Care Filed: 01/01/2023 5:52 PM Note Text: This note was created in error.[facility]08-29-2023 NoteHNO ID: [id number] Author: Nhan Qureshi Service: Pharmacy Author Type: Operator Coating Furnace Type: Plan of Care Filed: 12/10/2022 11:26 [...] pharmacy, please send new prescription(s) [facility] to [facility]. Any questions, please [place] [phone]. Thank you (Prices may vary at different pharmacy locations, this is the cost at [facility]08-29-2023 NoteHNO ID: [id number] Author: Gilbert Garcia LSW Service: Care Management Author Type: Rim Roller Setter Type: Care Mgt Progress Note Filed: 12/11/2022 [...] Management. SIGNATURE: AMOR Parker PATIENT NAME: Adina Daivd DATE: December 10, 2022 TIME: 11:15 AM PAGER/CONTACT #: [phone] Hospitals [facility]wood [facility] Center08-29-2023 NoteHNO ID: [id number] Author: Carole Pascal MD Service: General Internal Medicine Author Type: Physician Type: Progress Notes Filed: 12/10/2022 4:44 PM Note Text: General Internal Medicine - Service Max Haro Progress Note From 7am to 5pm: Please page [phone] After hours 5pm to 7am: Please page on-call [phone] SERVICE DATE: 12/10/2022 SERVICE TIME: 9:05 AM [...] 12/04/2022 5.5 5.0 - 8.0 Final Specific [place], Ur Date Value Ref Range Status 12/04/2022 [...] the small saphenous v (more content not included)...[facility]08-28-2023 History of Present illness Narrative* Yoselin Dobbs, PhD - 12/09/2022 8:22 AM EDT [facility] GENERAL Psycho-Oncology Program CONFIDENTIAL INITIAL PSYCHOLOGICAL EVALUATION DATE OF SERVICE: December 09, 2022, Virtual Initial Diagnostic Evaluation, 8:15pm to 9:00am PRESENT: Patient REFERRAL SOURCE: Dr. Dale Due to the [facility] and [facility] and the need for ongoing mental health services, thefollowing visit was completed virtually to reduce the risk of COVID-19 exposure. Consent related tovirtual visits was provided verbally after information was sent via News[employer] or read to patient if MyChart not [...] Ph.D. Staff Clinical Psychologist Hem/Medical Onc [place] Alonso [phone] This note was partially generated using [employer] voice recognition system. documented in this encounterUniversity Hospitals Lake [facility] Center08-28-2023 NoteHNO ID: [id number] Author: Carole Pascal MD Service: General Internal Medicine Author Type: Physician Type: Progress Notes Filed: 12/09/2022 4:35 PM Note Text: General Internal Medicine - Service Max Haro Progress Note From 7am to 5pm: Please page [phone] After hours 5pm to 7am: Please page on-call [phone] SERVICE DATE: 12/07/2022 SERVICE TIME: 9:05 AM [...] 12/04/2022 5.5 5.0 - 8.0 Final Specific [place], Ur Date Value Ref Range Status 12/04/2022 [...] deep vein thrombosis. [place] (more content not included)...[facility]08-27-2023 NoteHNO ID: [id number] Author: Roger Guerrier MD Service: General Internal Medicine Author Type: Physician Type: Progress Notes Filed: 12/08/2022 10:48 AM Note Text: General Internal Medicine - Service Max Haro Progress Note From 7am to 5pm: Please page [phone] After hours 5pm to 7am: Please page on-call [phone] SERVICE DATE: 12/07/2022 SERVICE TIME: 9:05 AM [...] 12/04/2022 5.5 5.0 - 8.0 Final Specific [place], Ur Date Value Ref Range Status 12/04/2022 [...] RIGHT SIDE - SUPER (more content not included)...[facility] 12-07-2022 NoteHNO ID: [id number] Author: Roger Guerrier MD Service: General Internal Medicine Author Type: Physician Type: Progress Notes Filed: 12/07/2022 2:12 PM Note Text: General Internal Medicine - Service Max Haro Progress Note From 7am to 5pm: Please page [phone] After hours 5pm to 7am: Please page on-call [phone] SERVICE DATE: 12/07/2022 SERVICE TIME: 9:05 AM [...] 12/04/2022 5.5 5.0 - 8.0 Final Specific [place], Ur Date Value Ref Range Status 12/04/2022 [...] Assessment and Plan Acti (more content not included)...[facility]08-22-2023 History of Past illness Narrative* Problem Noted Date Diagnosed Date Resolved Date Elevated troponin 12/03/2022 12/11/2022 Closed left subtrochanteric femur fracture 07/22/2020 07/27/2020 Facial numbness 03/31/2019 04/03/2019 GI bleed 12/31/2018 01/11/2019 Frequency of urination 03/19/201802/11 AVM (arteriovenous malformation) of colon 01/11/2019 documented as of this encounter (statuses as of 12/13/2022) [facility]08-22-2023 History of Past illness Narrative* Problem Noted Date Diagnosed Date Resolved Date Elevated troponin 12/03/2022 12/11/2022 Closed left subtrochanteric femur fracture 07/22/2020 07/27/2020 Facial numbness 03/31/2019 04/03/2019 GI bleed 12/31/2018 01/11/2019 Frequency of urination 03/19/201802/11 AVM (arteriovenous malformation) of colon 01/11/2019 documented as of this encounter (statuses as of 12/13/2022) [facility]08-[facility] History of Past illness Narrative* Problem Noted Date Diagnosed Date Resolved Date Elevated troponin 12/03/2022 12/11/2022 Closed left subtrochanteric femur fracture 07/22/2020 07/27/2020 Facial numbness 03/31/2019 04/03/2019 GI bleed 12/31/2018 01/11/2019 Frequency of urination 03/19/201802/11 AVM (arteriovenous malformation) of colon 01/11/2019 documented as of this encounter (statuses as of 12/19/2022) [facility] History of Past illness Narrative* Problem Noted Date Diagnosed Date Resolved Date Elevated troponin 12/03/2022 12/11/2022 Closed left subtrochanteric femur fracture 07/22/2020 07/27/2020 Facial numbness 03/31/2019 04/03/2019 GI bleed 12/31/2018 01/11/2019 Frequency of urination 03/19/201802/11 AVM (arteriovenous malformation) of colon 01/11/2019 documented as of this encounter (statuses as of 12/20/2022) [facility] History of Past illness Narrative* Problem Noted Date Diagnosed Date Resolved Date Elevated troponin 12/03/2022 12/11/2022 Closed left subtrochanteric femur fracture 07/22/2020 07/27/2020 Facial numbness 03/31/2019 04/03/2019 GI bleed 12/31/2018 01/11/2019 Frequency of urination 03/19/201802/11 AVM (arteriovenous malformation) of colon 01/11/2019 documented as of this encounter (statuses as of 12/20/2022) [facility] of Past illness Narrative* Problem Noted Date Diagnosed Date Resolved Date Elevated troponin 12/03/2022 12/11/2022 Closed left subtrochanteric femur fracture 07/22/2020 07/27/2020 Facial numbness 03/31/2019 04/03/2019 GI bleed 12/31/2018 01/11/2019 Frequency of urination 03/19/201802/11 AVM (arteriovenous malformation) of colon 01/11/2019 documented as of this encounter (statuses as of 12/24/2022) [facility] History of Past illness Narrative* Problem Noted Date Diagnosed Date Resolved Date Elevated troponin 12/03/2022 12/11/2022 Closed left subtrochanteric femur fracture 07/22/2020 07/27/2020 Facial numbness 03/31/2019 04/03/2019 GI bleed 12/31/2018 01/11/2019 Frequency of urination 03/19/201802/11 AVM (arteriovenous malformation) of colon 01/11/2019 documented as of this encounter (statuses as of 12/25/2022) [facility]08-22-2023 History of Past illness Narrative* Problem Noted Date Diagnosed Date Resolved Date Elevated troponin 12/03/2022 12/11/2022 Closed left subtrochanteric femur fracture 07/22/2020 07/27/2020 Facial numbness 03/31/2019 04/03/2019 GI bleed 12/31/2018 01/11/2019 Frequency of urination 03/19/201802/11 AVM (arteriovenous malformation) of colon 01/11/2019 documented as of this encounter (statuses as of 12/27/2022) [facility] History of Past illness Narrative* Problem Noted Date Diagnosed Date Resolved Date Elevated troponin 12/03/2022 12/11/2022 Closed left subtrochanteric femur fracture 07/22/2020 07/27/2020 Facial numbness 03/31/2019 04/03/2019 GI bleed 12/31/2018 01/11/2019 Frequency of urination 03/19/201802/11 AVM (arteriovenous malformation) of colon 01/11/2019 documented as of this encounter (statuses as of 12/30/2022) [facility] History of Past illness Narrative* Problem Noted Date Diagnosed Date Resolved Date Elevated troponin 12/03/2022 12/11/2022 Closed left subtrochanteric femur fracture 07/22/2020 07/27/2020 Facial numbness 03/31/2019 04/03/2019 GI bleed 12/31/2018 01/11/2019 Frequency of urination 03/19/201802/11 AVM (arteriovenous malformation) of colon 01/11/2019 documented as of this encounter (statuses as of 01/01/2023) [facility] History of Past illness Narrative* Problem Noted Date Diagnosed Date Resolved Date Elevated troponin 12/03/2022 12/11/2022 Closed left subtrochanteric femur fracture 07/22/2020 07/27/2020 Facial numbness 03/31/2019 04/03/2019 GI bleed 12/31/2018 01/11/2019 Frequency of urination 03/19/201802/11 AVM (arteriovenous malformation) of colon 01/11/2019 documented as of this encounter (statuses as of 01/04/2023) [facility] History of Past illness Narrative* Problem Noted Date Diagnosed Date Resolved Date Elevated troponin 12/03/2022 12/11/2022 Closed left subtrochanteric femur fracture 07/22/2020 07/27/2020 Facial numbness 03/31/2019 04/03/2019 GI bleed 12/31/2018 01/11/2019 Frequency of urination 03/19/201802/11 AVM (arteriovenous malformation) of colon 01/11/2019 documented as of this encounter (statuses as of 01/11/2023) [facility] History of Past illness Narrative* Problem Noted Date Diagnosed Date Resolved Date Elevated troponin 12/03/2022 12/11/2022 Closed left subtrochanteric femur fracture 07/22/2020 07/27/2020 Facial numbness 03/31/2019 04/03/2019 GI bleed 12/31/2018 01/11/2019 Frequency of urination 03/19/201802/11 AVM (arteriovenous malformation) of colon 01/11/2019 documented as of this encounter (statuses as of 01/18/2023) [facility] History of Past illness Narrative* Problem Noted Date Diagnosed Date Resolved Date Elevated troponin 12/03/2022 12/11/2022 Closed left subtrochanteric femur fracture 07/22/2020 07/27/2020 Facial numbness 03/31/2019 04/03/2019 GI bleed 12/31/2018 01/11/2019 Frequency of urination 03/19/201802/11 AVM (arteriovenous malformation) of colon 01/11/2019 documented as of this encounter (statuses as of 01/18/2023) [facility] History of Past illness Narrative* Problem Noted Date Diagnosed Date Resolved Date Elevated troponin 12/03/2022 12/11/2022 Closed left subtrochanteric femur fracture 07/22/2020 07/27/2020 Facial numbness 03/31/2019 04/03/2019 GI bleed 12/31/2018 01/11/2019 Frequency of urination 03/19/201802/11 AVM (arteriovenous malformation) of colon 01/11/2019 documented as of this encounter (statuses as of 01/22/2023) [facility] History of Past illness Narrative* Problem Noted Date Diagnosed Date Resolved Date Elevated troponin 12/03/2022 12/11/2022 Closed left subtrochanteric femur fracture 07/22/2020 07/27/2020 Facial numbness 03/31/2019 04/03/2019 GI bleed 12/31/2018 01/11/2019 Frequency of urination 03/19/201802/11 AVM (arteriovenous malformation) of colon 01/11/2019 documented as of this encounter (statuses as of 01/31/2023) [facility] History of Past illness Narrative* Problem Noted Date Diagnosed Date Resolved Date Elevated troponin 12/03/2022 12/11/2022 Closed left subtrochanteric femur fracture 07/22/2020 07/27/2020 Facial numbness 03/31/2019 04/03/2019 GI bleed 12/31/2018 01/11/2019 Frequency of urination 03/19/201802/11 AVM (arteriovenous malformation) of colon 01/11/2019 documented as of this encounter (statuses as of 02/04/2023) [facility] History of Past illness Narrative* Problem Noted Date Diagnosed Date Resolved Date Elevated troponin 12/03/2022 12/11/2022 Closed left subtrochanteric femur fracture 07/22/2020 07/27/2020 Facial numbness 03/31/2019 04/03/2019 GI bleed 12/31/2018 01/11/2019 Frequency of urination 03/19/201802/11 AVM (arteriovenous malformation) of colon 01/11/2019 documented as of this encounter (statuses as of 03/17/2023) [facility] History of Past illness Narrative* Problem Noted Date Diagnosed Date Resolved Date Elevated troponin 12/03/2022 12/11/2022 Closed left subtrochanteric femur fracture 07/22/2020 07/27/2020 Facial numbness 03/31/2019 04/03/2019 GI bleed 12/31/2018 01/11/2019 Frequency of urination 03/19/201802/11 AVM (arteriovenous malformation) of colon 01/11/2019 documented as of this encounter (statuses as of 05/19/2023) [facility] History of Past illness Narrative* Problem Noted Date Diagnosed Date Resolved Date Elevated troponin 12/03/2022 12/11/2022 Closed left subtrochanteric femur fracture 07/22/2020 07/27/2020 Facial numbness 03/31/2019 04/03/2019 GI bleed 12/31/2018 01/11/2019 Frequency of urination 03/19/201802/11 AVM (arteriovenous malformation) of colon 01/11/2019 documented as of this encounter (statuses as of 05/28/2023) [facility] History of Past illness Narrative* Problem Noted Date Diagnosed Date Resolved Date Elevated troponin 12/03/2022 12/11/2022 Closed left subtrochanteric femur fracture 07/22/2020 07/27/2020 Facial numbness 03/31/2019 04/03/2019 GI bleed 12/31/2018 01/11/2019 Frequency of urination 03/19/201802/11 AVM (arteriovenous malformation) of colon 01/11/2019 documented as of this encounter (statuses as of 05/30/2023) [facility] History of Past illness Narrative* Problem Noted Date Diagnosed Date Resolved Date Elevated troponin 12/03/2022 12/11/2022 Closed left subtrochanteric femur fracture 07/22/2020 07/27/2020 Facial numbness 03/31/2019 04/03/2019 GI bleed 12/31/2018 01/11/2019 Frequency of urination 03/19/201802/11 AVM (arteriovenous malformation) of colon 01/11/2019 documented as of this encounter (statuses as of 06/02/2023) [facility] History of Past illness Narrative* Problem Noted Date Diagnosed Date Resolved Date Elevated troponin 12/03/2022 12/11/2022 Closed left subtrochanteric femur fracture 07/22/2020 07/27/2020 Facial numbness 03/31/2019 04/03/2019 GI bleed 12/31/2018 01/11/2019 Frequency of urination 03/19/201802/11 AVM (arteriovenous malformation) of colon 01/11/2019 documented as of this encounter (statuses as of 06/02/2023) [facility] History of Past illness Narrative* Problem Noted Date Diagnosed Date Resolved Date Elevated troponin 12/03/2022 12/11/2022 Closed left subtrochanteric femur fracture 07/22/2020 07/27/2020 Facial numbness 03/31/2019 04/03/2019 GI bleed 12/31/2018 01/11/2019 Frequency of urination 03/19/201802/11 AVM (arteriovenous malformation) of colon 01/11/2019 documented as of this encounter (statuses as of 06/05/2023) [facility] History of Past illness Narrative* Problem Noted Date Diagnosed Date Resolved Date Elevated troponin 12/03/2022 12/11/2022 Closed left subtrochanteric femur fracture 07/22/2020 07/27/2020 Facial numbness 03/31/2019 04/03/2019 GI bleed 12/31/2018 01/11/2019 Frequency of urination 03/19/201802/11 AVM (arteriovenous malformation) of colon 01/11/2019 documented as of this encounter (statuses as of 06/23/2023) [facility] History of Past illness Narrative* Problem Noted Date Diagnosed Date Resolved Date Elevated troponin 12/03/2022 12/11/2022 Closed left subtrochanteric femur fracture 07/22/2020 07/27/2020 Facial numbness 03/31/2019 04/03/2019 GI bleed 12/31/2018 01/11/2019 Frequency of urination 03/19/201802/11 AVM (arteriovenous malformation) of colon 01/11/2019 documented as of this encounter (statuses as of 06/26/2023) [facility] History of Past illness Narrative* Problem Noted Date Diagnosed Date Resolved Date Elevated troponin 12/03/2022 12/11/2022 Closed left subtrochanteric femur fracture 07/22/2020 07/27/2020 Facial numbness 03/31/2019 04/03/2019 GI bleed 12/31/2018 01/11/2019 Frequency of urination 03/19/201802/11 AVM (arteriovenous malformation) of colon 01/11/2019 documented as of this encounter (statuses as of 07/01/2023) [facility] History of Past illness Narrative* Problem Noted Date Diagnosed Date Resolved Date Elevated troponin 12/03/2022 12/11/2022 Closed left subtrochanteric femur fracture 07/22/2020 07/27/2020 Facial numbness 03/31/2019 04/03/2019 GI bleed 12/31/2018 01/11/2019 Frequency of urination 03/19/201802/11 AVM (arteriovenous malformation) of colon 01/11/2019 documented as of this encounter (statuses as of 07/03/2023) [facility]08[facility] History of Past illness Narrative* Problem Noted Date Diagnosed Date Resolved Date Elevated troponin 12/03/2022 12/11/2022 Closed left subtrochanteric femur fracture 07/22/2020 07/27/2020 Facial numbness 03/31/2019 04/03/2019 GI bleed 12/31/2018 01/11/2019 Frequency of urination 03/19/201802/11 AVM (arteriovenous malformation) of colon 01/11/2019 documented as of this encounter (statuses as of 07/15/2023) [facility] History of Past illness Narrative* Problem Noted Date Diagnosed Date Resolved Date Elevated troponin 12/03/2022 12/11/2022 Closed left subtrochanteric femur fracture 07/22/2020 07/27/2020 Facial numbness 03/31/2019 04/03/2019 GI bleed 12/31/2018 01/11/2019 Frequency of urination 03/19/201802/11 AVM (arteriovenous malformation) of colon 01/11/2019 documented as of this encounter (statuses as of 07/17/2023) [facility] History of Past illness Narrative* Problem Noted Date Diagnosed Date Resolved Date Elevated troponin 12/03/2022 12/11/2022 Closed left subtrochanteric femur fracture 07/22/2020 07/27/2020 Facial numbness 03/31/2019 04/03/2019 GI bleed 12/31/2018 01/11/2019 Frequency of urination 03/19/201802/11 AVM (arteriovenous malformation) of colon 01/11/2019 documented as of this encounter (statuses as of 07/18/2023) [facility] History of Past illness Narrative* Problem Noted Date Diagnosed Date Resolved Date Elevated troponin 12/03/2022 12/11/2022 Closed left subtrochanteric femur fracture 07/22/2020 07/27/2020 Facial numbness 03/31/2019 04/03/2019 GI bleed 12/31/2018 01/11/2019 Frequency of urination 03/19/201802/11 AVM (arteriovenous malformation) of colon 01/11/2019 documented as of this encounter (statuses as of 07/31/2023) [facility]08-22-2023 Miscellaneous Notes* Telephone Encounter - Alyse Quinn - 12/03/2022 10:54 AM EDT Pt currently admitted to [facility] Main for blood clots in right lung. They did another US of his legs and they were cleared. documented in this encounterUniversity [facility]-2023 Miscellaneous Notes* Telephone Encounter - Bijal Rowan - 11/29/2022 11:46 AM EDT Daughter called today. Patient could barely get out of bed. He is not sleeping well. He has had a gradual decline with fatigue. They will go to main [facility] ER. Spoke with patient at length. (>25 minutes discussing his medical history and multiple issues with each specialty). He has no SOB within the conversation. He questions what Hgb level will you transfuse? Tried to explain 8.6, although low, transfusion not medically required. documented in this encounterUniversity [facility]als [facility]-2023 Miscellaneous Notes* Telephone Encounter - Ary Santoro [...] here. Please advise pt documented in this encounterUniversity [facility]als [facility]08-16-2023 Miscellaneous Notes* Telephone Encounter - Quentin Guidry RN - 11/27/2022 3:39 PM EDT Called pt and informed Dr Dael's response below, pt verbalized understanding. Quentin Guidry [...] advise Derek Horne MA documented in this encounterUniversity Hospitals [facility]08-[facility]-2023 History of Present illness Narrative* Macie Thacker APRN.CNP - 11/27/2022 12:54 PM EDT Virtualist Distance Health Note (CDM/TCM//CC HC/H@HCC escalations) I have communicated my name and active licensure. The patient's identity and physical location wereverified at the time of this visit. Either the patient or their legal kiosk sales representative has been informed of the risks [...] in as Primary Virtualist, Secondary Virtualist, or [facility] Telehealth provider: Primary SIGNATURE: Macie Chatman APRN.CNP PATIENT NAME: Adina David DATE: November 27, 2022 documented in this encounterUniversity Hospitals [facility]08-[facility]-2023 History of Present illness Narrative* Leslie Moon [...] of 1 cycle started 10/22/2017 12/28/2018 Other Amryia (Pharmacist)[place] NON-CHEMO 2 Plan Name Cycles Start [...] CT A/P w/ IV contrast on 01/19/2022 ([facility]) Right inguinal hernia containing loops of bowel. [...] 08/28, and 10/10. He underwent endoscope at [facility] on 10/09/2022, found bleeders s/p endoscopic [...] proportion; a sequence change of c. 1514G>A (p.[id number]) in exon 10 was detected at approximately [...] no change 7. GIB - admitted to [facility] in 04/2021 with Hb 4.8, transfused 7 [...] 08/16, 08/28, 10/10. He underwent endoscope at [facility] on 10/09/2022, found bleeders s/p endoscopic [...] minutes in consultation with him. Leslie Moon APRN.ASSISTANT WINEMAKER documented in this encounterUniversity Hospitals [facility]08-14-2023 Miscellaneous Notes* Telephone Encounter - Quentin Guidry, RN - 11/25/2022 2:[address] Dale's request, Psychology (new patient exam) with Dr Yoselin Dobbs setup for 12/09/22, CT Chest scheduled for 02/24/23, Follow up OV scheduled for 03/05. Called pt to notify, pt verbalized understanding. Quentin Guidry LPN documented in this encounterUniversity Hospitals [facility]08-10-2023 Miscellaneous Notes* Telephone Encounter - Emilee [place] [...] NEED for this medications. 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 [...] ACTIVE PROBLEM LIST Deng (Acute Kidney Injury) ([facility]) - 01/07/2019 (D priority) Iron Deficiency Anemia Due to Chronic Blood Loss - 02/19/2022 Vitamin D Deficiency - 07/17/2021 Obesity, Class I, Bmi 30-34.9 - 05/28/2021 Acute Blood Loss Anemia - 05/16/2021 Covid-19 Virus Infection - 05/16/2021 Severe Protein-Calorie Malnutrition ([facility]) - 05/09/2021 Severe Anemia - 05/02/2021 Cira (Obstructive Sleep Apnea) - 05/01/2021 Deep Vein 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 Lymph 0.84 - 2.85 thou/cmm Abs. Brooke 0.30 - 0.82 thou/cmm Abs. Eosin 0.04 [...] Lymph 1.00 - 4.00 k/uL 25.36 (H) Brooke% % 1.0 Abs Brooke <0.87 k/uL 0.36 Eosin% % 3.0 Abs [...] CT A/P w/ IV contrast on 01/19/2022 ([facility]) Right inguinal hernia containing loops of bowel. [...] 08/28, and 10/10. He underwent endoscope at [facility] on 10/09/2022, found bleeders s/p endoscopic [...] proportion; a sequence change of c. 1514G>A (p.[id number]) in exon 10 was detected at approximately [...] by urology 7. GIB - admitted to [facility] in 04/2021 with Hb 4.8, transfused 7 [...] 08/16, 08/28, 10/10. He underwent endoscope at [facility] on 10/09/2022, found bleeders s/p endoscopic [...] Level: 4 - Moderate documented in this encounterUniversity Hospitals [facility] Center08-07-2023 Miscellaneous Notes* Telephone Encounter - Yuko Raymond [...] covid testing previously placed. documented in this encounterUniversity Hospitals [facility] Center08-05-2023 Miscellaneous Notes* Telephone Encounter - Bertha Chou [...] me and hang up. documented in this encounterUniversity Hospitals Lake West Medical Center08-04-2023 Miscellaneous Notes* Telephone Encounter - Halle Dale [...] AM EDT [facility] [place] pt [facility] an early [facility]ill on [...] in) Derek Horne MA documented in this encounterUniversity Hospitals [facility] Center08-04-2023 Miscellaneous Notes* Telephone Encounter - Peter Land [...] him until his appointment. documented in this encounterUniversity Hospitals Lake West Medical Center08-01-2023 Miscellaneous Notes* Telephone Encounter - Ary Araujo Ma - 11/12/2022 2:05 PM EDT Spoke to patient. He verified faxing lab results to [facility], Michelle. Richard placed Covid test order for patient. Informed patient he can schedule an appointment through [facility] to have his Covid test done.He might wait till his appointment with Richard. Faxed lab results to [phone]. * Telephone Encounter - Guerline Alex - [...] MICHELLE at [facility], fax number: [phone] attn: Dr. Milner documented in this encounterUniversity Hospitals Lake West Medical Center07-27-2023 Miscellaneous Notes* Telephone Encounter - Thi Pavon [...] CABEZAS Patient Outreach Team documented in this encounterUniversity Hospitals Lake West [facility] Center07-26-2023 Miscellaneous Notes* Telephone Encounter - Fidencio Mon RN - 11/06/2022 11:49 AM EDT Pt had a visit with provider today. iFdencio Mon RN documented in this encounterUniversity Hospitals Lake [facility] Medical Center07-13-2023 Miscellaneous Notes* Telephone Encounter - Derek Horne [...] well Derek Horne MA documented in this [facility]07-13-2023 History of Present illness Narrative* Wilton Palma RN - 10/24/2022 10:35 AM EDT [facility] Telephonic Outreach Provider Action/FYI CDM: CKD Left a message, Instructed to call PCP with any symptom or condition changes. Contacted for: Routine Telephonic Outreach Contact made with patient: No, left message. Wilton Palma RN October 24, 2022 10:36 AM documented in this encounterUniversity Hospitals Lake [facility] Medical Center07-12-2023 History of Present illness Narrative* Wilton Palma [...] 22, 2022 5:07 PM documented in this encounterUniversity Hospitals Lake West Medical Center07-07-2023 Miscellaneous Notes* Telephone Encounter - Halle Dale [...] stow. 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 [...] of Femoral Vein of Left Lower Extremity ([facility]) - 03/14/2021 Leg Swelling - 03/14/2021 Leukocytosis - 03/31/2019 Essential Thrombocythemia ([facility]) - 03/31/2019 Ckd (Chronic Kidney Disease) Stage 3, Gfr 30-59 Ml/Min ([facility]) - 03/31/2019 Hypertriglyceridemia 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 S/P Drug Eluting Coronary Stent Placement - 11/25/2018 Stage 2 Chronic Kidney Disease - 11/10/2018 Nstemi (Non-St Elevated Myocardial Infarction) ([facility]) - 10/24/2018 Bph (Benign Prostatic Hyperplasia) - 10/05/2018 History of Right Nephrectomy - 10/05/2018 Nocturia - 03/19/2018 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 Андрей w DO Ulises Matos DO documented in this encounterUniversity Hospitals Lake [facility] Center07-06-2023 Miscellaneous Notes* Telephone Encounter - [place] [...] done 10/09/22. Pt can be reached at [phone]. Please review. documented in this encounterUniversity Hospitals Lake [facility] Center07-06-2023 History of Present illness Narrative* RT Anthony(R) [...] 17, 2022 2:46 PM documented in this encounterUniversity Hospitals Lake [facility] Center07-06-2023 History of Present illness Narrative* Halle Dale MD - 10/17/2022 10:48 AM EDT PROGRESS NOTE 10/17/2022 Chief Complaint: Mr. Adina David is here to follow up his hematological conditions (CLL, MPN, VTE, bleeding) Interval History: He remains on hydrea 1000 mg daily. Remains on Eliquis 2.5 mg BID. He underwent endoscope at [facility] main last week, found bleeding source [...] Abs. Lymph 0.84 - 2.85 thou/cmm Abs. Brooke 0.30 - 0.82 thou/cmm Abs. Eosin 0.04 [...] Lymph 1.00 - 4.00 k/uL 28.70 (H) Brooke% % 1.0 Abs Brooke <0.87 k/uL 0.38 Eosin% % 0.0 Abs [...] CT A/P w/ IV contrast on 01/19/2022 ([facility]) Right inguinal hernia containing loops of bowel. [...] 08/28, and 10/10. He underwent endoscope at [facility] on 10/09/2022, found bleeders s/p endoscopic [...] proportion; a sequence change of c. 1514G>A (p.[id number]) in exon 10 was detected at approximately [...] by urology 7. GIB - admitted to [facility] in 04/2021 with Hb 4.8, transfused 7 [...] 08/16, 08/28, 10/10. He underwent endoscope at [facility] on 10/09/2022, found bleeders s/p endoscopic [...] Level: 4 - Moderate documented in this encounterUniversity Hospitals Lake [facility] Medical Center07-05-2023 Miscellaneous Notes* Telephone Encounter - Jenn Alcala Ma - 10/16/2022 4:57 PM EDT Pt has appt tomorrow, 10/17 Requested Prescriptions Pending Prescriptions Disp Refills omeprazole (PRILOSEC) 40 mg capsule [Pharmacy Med Name: Omeprazole 40 MG Oral Capsule Delayed Release] 90 capsule 3 Sig: Take 1 capsule by mouth once daily Please review and advise. Jenn Alcala Ma documented in this encounterUniversity Hospitals Lake West Medical Center06-29-2023 Miscellaneous Notes* Telephone Encounter - Derek Horne [...] Friday. Derek Horne MA documented in this [facility]06-29-2023 Evaluation note* Diagnosis Stage 3 chronic kidney disease, unspecified whether stage 3a or 3b CKD (HCC)- Primary Acute blood loss anemia Acute posthemorrhagic anemia Severe anemia Other iron deficiency anemia documented in this encounter [facility]06[facility]28[facility] Nurse Note* Desire Croft LPN - 10/09/2022 [...] Instructions REFERRAL (RECOMMENDATION): None documented in this encounterUniversity Hospitals Lake [facility] Center06-28-2023 History and physical note * Hortencia Gallardo [...] DATE: 10/09/2022 TIME: 1701 documented in this encounterUniversity Hospitals Lake [facility]06-22-2023 Miscellaneous Notes* Telephone Encounter - Bailey Fox MA - 10/03/2022 10:25 AM EDT Spoke with pt informed him of Dr. Gallardo's message, sent instructions via . Pt verbalized understanding. documented in this encounterUniversity Hospitals Lake [facility] Center06-21-2023 Miscellaneous Notes* Telephone Encounter - Deysi Licona [...] have family/friend present for procedure transport home:Patient/patient kiosk sales representative was told that if they do [...] area. Any barriers to Patient learning: Patient/Patient Booth Supervisor responded appropriately on phone. Type of instruction given: Verbal by telephone contact. DEYSI Licona RN documented in this encounterUniversity Hospitals [facility]06-15-2023 Miscellaneous Notes* Telephone Encounter - Halle Dale [...] soon. Derek Horne MA documented in this encounterUniversity Hospitals Lake [facility] Center06-06-2023 Miscellaneous Notes* Telephone Encounter - Halle Dale MD - 09/17/2022 5:14 PM EDT We will transfuse if Hb<8. Please let him know. * Telephone Encounter - Derek Horne MA - 09/17/2022 11:38 AM EDT Pt wanted to know if he could get more blood since after his second unit he was only up to 8.5 Derek Horne MA documented in this encounterUniversity Hospitals Lake [facility] Center06-05-2023 History of Present illness Narrative* Wilton Palma [...] pounds in a week? No Based on documentation improvement specialist, the following disposition is advised: No symptoms or symptoms present, not severe. Routed to: No Action Needed NYDIA Education Provided this Outreach: No Wilton Palma RN September 16, 2022 10:34 AM documented in this encounterUniversity Hospitals Lake [facility] Center05-09-2023 History of Present illness Narrative* Halle Dale [...] Abs. Lymph 0.84 - 2.85 thou/cmm Abs. Brooke 0.30 - 0.82 thou/cmm Abs. Eosin 0.04 [...] Lymph 1.00 - 4.00 k/uL 31.03 (H) Brooke% % 1.0 Abs Brooke <0.87 k/uL 0.43 Eosin% % 0.0 Abs [...] CT A/P w/ IV contrast on 01/19/2022 ([facility]) Right inguinal hernia containing loops of bowel. [...] proportion; a sequence change of c. 1514G>A ([id number]) in exon 10 was detected at approximately [...] by urology 7. GIB - admitted to [facility] in 04/2021 with Hb 4.8, transfused 7 [...] Level: 4 - Moderate documented in this encounterUniversity Hospitals [facility] Center05-08-2023 Miscellaneous Notes* Telephone Encounter - Derek Horne [...] best option or not documented in this encounterUniversity Hospitals Lake [facility] Center05-04-2023 History of Present illness Narrative* Wilton Palma, MEHUL - 08/15/2022 11:58 AM EDT CDM Telephonic Outreach Provider Action/FYI : Routed updates to Dr. Ramos CDM: CKD Spk with Pt he denies new or worsening Urinary/ CKD symptoms Pt has Appt with Dr.Charles Sorensen Pulmonology with [facility], Pt is in process of scheduling a sleep study at [facility]. Pt reports will have a blood transfusion [...] to talk about today? Yes Based on documentation improvement specialist, the following disposition is advised: Symptoms present, not severe. Routed to: No Action Needed NYDIA Education Provided this Outreach: No Wilton Palma RN August 15, 2022 12:27 PM documented in this encounterUniversity Hospitals [facility]05-02-2023 History of Present illness Narrative* Deysi Melchor [...] 2022 TIME: 9:06 AM documented in this encounterUniversity Hospitals Lake [facility] Center05-01-2023 Miscellaneous Notes* Telephone Encounter - Deerk Horne MA - 08/12/2022 4:28 PM EDT [...] 8.1 Derek Horne MA documented in this encounterUniversity Hospitals Lake [facility] Medical Center04-26-2023 Instructions* Patient Instructions* Hortencia Gallardo MD - [...] If you do not have a responsible wedding transportation driver (family member or friend) withyou to take you home, your exam cannot be done with sedation and will be cancelled. Please bring a list of all of your current medications, including any [id number] medications with you. Medications If you take [...] your exam. 2 03/2019 documented in this encounterUniversity Hospitals Lake [facility] Center04-26-2023 History of Present illness Narrative* Hortencia Gallardo MD - 08/07/2022 10:00 AM EDT SMALL BOWEL DISEASES AND NUTRITION FOLLOW-UP VISIT Date of direct communication: 08/07/2022 [x] I have communicated my name and active licensure. The patient's identity and physical location were verified at the time of this visit. Either the patientor their legal kiosk sales representative has been informed of the risks [...] FOLLOW-UP: Post-procedure Hortencia Gallardo MD 08/07/2022 Staff Furniture Associate, [facility] [place] PRIMARY PROBLEM: iron def anemia, small bowel [...] co- ordination of care. documented in this encounterUniversity Hospitals Lake [facility] Center04-24-2023 Miscellaneous Notes* Telephone Encounter - Jana Mackey [...] good idea. Please advise. documented in this encounterUniversity Hospitals Lake West Medical Center04-21-2023 Miscellaneous Notes* Telephone Encounter - Halle Dale [...] results. Derek Horne MA documented in this encounterUniversity Hospitals Lake [facility] Medical Center04-20-2023 Miscellaneous Notes* Telephone Encounter - Marlene Blanco Pss - 08/01/2022 10:23 AM EDT Sleep Medicine Referral information submitted to [facility]. Ref# [id number]. [facility] Specialty office will call the patient within 7-10 business days to set this appointment up. documented in this encounterUniversity Hospitals Lake [facility] Center04-17-2023 Miscellaneous Notes* Telephone Encounter - Halle Dale [...] mg. Derek Horne MA documented in this encounterUniversity Hospitals Lake West Medical Center04-13-2023 Miscellaneous Notes* Telephone Encounter - Darrell Cabezas - 07/25/2022 1:41 PM EDT Order, last office note, and demographics were faxed to Dr Rios as requested * Telephone Encounter - Bernarda Sarah RN - 07/25/2022 12:25 PM EDT Patient requests a referral to pulmonology Dr. Pagan at [phone]. documented in this encounterUniversity Hospitals Lake [facility] Medical Center04-13-2023 Miscellaneous Notes* Telephone Encounter - Yuko Lauren RN - 07/25/2022 11:08 AM EDT Updated message on cover my meds: Your request has been approved Yuko Lauren RN * Telephone Encounter - Yuko Lauren RN - 07/25/2022 11:04 AM EDT Prior auth for Repatha submitted on cover my meds website. End message as follows: [facility]. [facility] Medicare Part D will review the request and will issue a decision, typically within 1-3 days from your submission. You can check the updated outcome later by reopening this request. If [employer] Medicare Part D has not responded in 1-3 days or if you have any questions about your ePA request, please contact [facility] Medicare Part D at [phone]. If you think there may be a problem with your PA request, use our live chat feature at the bottom right Yuko Lauren RN documented in this encounterUniversity Hospitals Lake [facility] Center04-10-2023 Miscellaneous Notes* Telephone Encounter - Pratibha Haque MA - 07/22/2022 9:05 AM EDT Patient scheduled 07/30. * Telephone Encounter - Ulises Ramos DO - 07/22/2022 7:37 AM EDT Get him a fu next week to review the pft and discuss all his other stuff as well documented in this encounterUniversity Hospitals Lake [facility] Center04-07-2023 Miscellaneous Notes* Telephone Encounter - Fidencio Mon RN - 07/19/2022 10:16 AM EDT Pt scheduled for virtual visit on 08/07/22 to discuss POC. Fidencio Mon RN * Telephone Encounter - Tereza Sunshine - 07/11/2022 10:46 AM EDT 07/11/22 Message from patient for Jeison Farfan MD put patient back on Eliquis for DVT Tereza documented in this encounterUniversity Hospitals Lake West Medical Center04-03-2023 History of Present illness Narrative* Sean Mays [...] treatment was advised. He was admitted to [facility] in October 2018 with chest tightness with [...] to be anemic. [facility] and underwentGI evaluation with endoscopy and colonoscopy. Colonoscopy identified colonic AV malformation and internal hemorrhoid bleeding. His Plavix was interrupted for a month. He had completed 3 months of dual antiplatelet therapy prior to this GI bleed. Was hospitalized again in March 2019 with electrolyte issues including hypocalcemia hypo kalemiaand hypomagnesemia. He sees Dr. Gruber Patient transitioned his care to [place] in March 2019. Patient had a mechanical [...] hydroxyurea PAST CARDIAC HISTORY: CAD status post [place], October 2018 status post LAD stent Hypertension [...] Lymph 1.00 - 4.00 k/uL 37.53 (H) Brooke% % 2.0 Abs Brooke <0.87 k/uL 0.84 Eosin% % 0.0 Abs [...] 3 mm x 22 mm everolimus eluting hydaburg chromium stent to his LAD. S/p plavix [...] Sean Mays MD, FACC documented in this encounterUniversity Hospitals Lake [facility] Medical Center04-03-2023 Nurse Note* Gayle Ramires MA - 07/15/2022 10:11 AM EDT Patient has no cardiac complaints today. Gayle Ramires CMA documented in this encounterUniversity Hospitals Lake [facility] Center04-03-2023 Miscellaneous Notes* Addendum Note - Ulises Ramos [...] for 1 mos supply documented in this encounterUniversity Hospitals Lake [facility] Center03-30-2023 Miscellaneous Notes* Telephone Encounter - Thi Librado [...] hemoglobin in two weeks. 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 [...] ACTIVE PROBLEM LIST Deng (Acute Kidney Injury) ([facility]) - 01/07/2019 (D priority) Iron Deficiency Anemia Due to Chronic Blood Loss - 02/19/2022 Vitamin D Deficiency - 07/17/2021 Obesity, Class I, Bmi 30-34.9 - 05/28/2021 Acute Blood Loss Anemia - 05/16/2021 Covid-19 Virus Infection - 05/16/2021 Severe Protein-Calorie Malnutrition ([facility]) - 05/09/2021 Severe Anemia - 05/02/2021 Cira (Obstructive Sleep Apnea) - 05/01/2021 Deep Vein 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 Notified of test results and Dr Mays's recommendations. Pt voices understanding. Yuko Lauren, RN * Telephone Encounter - Sean Mays MD - 07/04/2022 11:02 AM EDT Excellent lipid panel with LDL of 40. Continue with Repatha. Thanks documented in this encounterUniversity Hospitals Lake West Medical Center03-23-2023 Miscellaneous Notes* Telephone Encounter - Tereza Sunshine - 07/04/2022 9:44 AM EDT 07/04/22 Patient calling to talk to Dr Gallardo if she has communicated with with him PCP to find out what the next step is going to be. 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 [...] ACTIVE PROBLEM LIST Deng (Acute Kidney Injury) ([facility]) - 01/07/2019 (D priority) Iron Deficiency Anemia Due to Chronic Blood Loss - 02/19/2022 Vitamin D Deficiency - 07/17/2021 Obesity, Class I, Bmi 30-34.9 - 05/28/2021 Acute Blood Loss Anemia - 05/16/2021 Covid-19 Virus Infection - 05/16/2021 Severe Protein-Calorie Malnutrition ([facility]) - 05/09/2021 Severe Anemia - 05/02/2021 Cira (Obstructive Sleep Apnea) - 05/01/2021 Deep Vein Thrombosis (Dvt) of Femoral Vein of Left Lower Extremity ([facility]) - 03/14/2021 Leg Swelling - 03/14/2021 Leukocytosis - 03/31/2019 Essential Thrombocythemia ([facility]) - 03/31/2019 Ckd (Chronic Kidney Disease) Stage 3, Gfr 30-59 Ml/Min ([facility]) - 03/31/2019 Hypertriglyceridemia 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 S/P Drug Eluting Coronary Stent Placement - 11/25/2018 Stage 2 Chronic Kidney Disease - 11/10/2018 Nstemi (Non-St Elevated Myocardial Infarction) ([facility]) - 10/24/2018 Bph (Benign Prostatic Hyperplasia) - 10/05/2018 History of Right Nephrectomy - 10/05/2018 Nocturia - 03/19/2018 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 Deep vein thrombosis (DVT) of left lower extremity, unspecified chronicity, unspecified vein (HCC) - ICD9: 453.40, ICD10: I82.402 - [id number] BL - US DVT LOWER LT 3. Localized swelling, mass and lump, left upper limb - ICD9: 782.2, ICD10: R22.32 - US DVT LOWER LT 4. History of colonic polyps - ICD9: V12.72, ICD10: Z86.010 - COLONOSCOPY SCREENING Ulises Ramos DO documented in this encounterUniversity Hospitals Lake [facility] Center03-20-2023 Miscellaneous Notes* Telephone Encounter - Essie Rivera LPN - 07/01/2022 11:29 AM EDT Pharmacy [employer] message requesting the following refill Refill(s) Requested: Requested Prescriptions Pending Prescriptions Disp Refills zolpidem (AMBIEN) 5 mg tablet [Pharmacy Med Name: Zolpidem Tartrate 5 MG Oral Tablet] 30 tablet 0 Sig: TAKE 1 TABLET BY MOUTH ONCE DAILY AT BEDTIME NEEDED FOR UP TO 30 DAYS ALLERGIES Allergen Reactions Doxycycline Intolerance Rash, diarrhea Penicillin Hives Penicillin V Potass* Other: See Comments (home) [phone] (cell) Last Office Visit Date: 06/21/2022 Last [facility] Visit: Visit date not found Future Appointment: 09/17/2022 The patients preferred pharmacy has been captured for this encounter? yes Request is for script(s) to be escript to pharmacy. Essie Rivera LPN documented in this encounterUniversity Hospitals Lake [facility] Center03-17-2023 Miscellaneous Notes* Telephone Encounter - Alexia Mariscal [...] see Drtete Pt does not want a STRATEGIC COMMUNICATIONS MANAGER or PA Please advise, Notify Pt documented in this encounterUniversity Hospitals Lake West Medical Center03-15-2023 History of Present illness Narrative* Sia Hodge [...] created on 03/18/22 through 05/17/22-extended through 07/30/22 Ralph in home exercise program.-Progressing Patient will decrease [...] 43 Sia Hodge PT documented in this encounterUniversity Hospitals Lake West Medical Center03-14-2023 History of Present illness Narrative* Wilton Palma RN - 06/25/2022 9:40 AM EDT [facility] TELEPHONIC OUTREACH Provider Action/FYI: CDM: CKD 2nd Call, left a message to verify symptom status, instructed to call PCP with any changes in condition or needs. Contact made with patient: No - Left message Hello my name is Wilton Palma RN your 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 from the [facility] I am callingtoday for your bi-weekly check [...] RN - 06/24/2022 9:20 AM EDT [facility] TELEPH[facility] OUTREACH Provider Action/FYI: CDM: CKD Left a message to verify symptom status, instructed to call PCP with any changes in condition or needs. Contact made with patient: No - Left message Hello my name is Wilton Palma RN your 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 from the [facility] I am callingtoday for your bi-weekly check [...] 24, 2022 9:20 AM documented in this encounterUniversity Hospitals Lake West Medical Center03-13-2023 History of Present illness Narrative* Kaleigh Mueller [...] 43 Kaleigh Mueller PTA documented in this encounterUniversity Hospitals Lake West Medical Center03-10-2023 History of Present illness Narrative* Halle Dale MD - 06/21/2022 10:20 AM EST PROGRESS NOTE 06/21/2022 Chief Complaint: Mr. Adina David is here to follow up his hematological conditions (CLL, MPN, VTE, bleeding) Interval History: He is on hydrea 500 mg twice daily. Reports doing well overall. He follows GI at [facility]. No further GIB. Supposed to start [...] Abs. Lymph 0.84 - 2.85 thou/cmm Abs. Brooke 0.30 - 0.82 thou/cmm Abs. Eosin 0.04 [...] Lymph 1.00 - 4.00 k/uL 37.53 (H) Brooke% % 2.0 Abs Brooke <0.87 k/uL 0.84 Eosin% % 0.0 Abs [...] CT A/P w/ IV contrast on 01/19/2022 ([facility]) Right inguinal hernia containing loops of bowel. [...] proportion; a sequence change of c. 1514G>A ([id number]) in exon 10 was detected at approximately [...] by urology 7. GIB - admitted to [facility] in 04/2021 with Hb 4.8, transfused 7 [...] Level: 4 - Moderate documented in this encounterUniversity Hospitals Lake West Medical Center03-08-2023 History of Present illness Narrative* Sia Hodge [...] 43 Sia Hodge PT documented in this encounterUniversity Hospitals Lake West Medical Center03-03-2023 History of Present illness Narrative* Sia Hodge [...] 48 Sia Hodge PT documented in this encounterUniversity Hospitals Lake West Medical Center03-03-2023 Miscellaneous Notes* Telephone Encounter - Bernarda Sarah RN - 06/14/2022 12:20 PM EST Mon's requests chart notes discussing the use and benefit of CPAP. Can you addend this in his last office visit? Please fax to [phone]. documented in this encounterUniversity Hospitals Lake West Medical Center03-01-2023 History of Present illness Narrative* Sia Hodge [...] 43 Sia Hodge PT documented in this encounterUniversity Hospitals Lake West Medical Center02-28-2023 Instructions* Patient Instructions* Destin Jacinto - 06/11/2022 [...] in clinic as needed documented in this encounterUniversity Hospitals Lake West Medical Center02-28-2023 History of Present illness Narrative* Buffy Min [...] polyp in D2, appears hyperplastic Rhodes's esophagus, [place] class C0M2. Biopsies taken to rule out [...] review including available outside records, performing the [id number] history and physical exam, and documenting the encounter in the EMR including the time spent by Dr. Yonas Oro. documented in this encounterUniversity Hospitals Lake West Medical Center02-24-2023 History of Present illness Narrative* Sia Hodge, [...] Total Treatment Time Minutes (timed/untimed): 45 Sia Hodeg PT documented in this encounterUniversity Hospitals Lake West Medical Center02-22-2023 History of Present illness Narrative* Ulises Ramos, [...] femur REPAIR EPIGASTRIC HERNIA,REDUC STENT PLACEMENT 2018 MATRIN LAD TONSILLECTOMY AND ADENOIDECTOMY HX ads a child FAMILY HISTORY Problem Relation Age of Onset Cancer Mother BOWEL Heart Father Hyperlipidemia Father Diabetes Father Hypertension Father Colon Cancer No Family History Social History 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 [...] ACTIVE PROBLEM LIST Deng (Acute Kidney Injury) ([facility]) - 01/07/2019 (D priority) Iron Deficiency Anemia [...] of Femoral Vein of Left Lower Extremity ([facility]) - 03/14/2021 Leg Swelling - 03/14/2021 Leukocytosis - 03/31/2019 Essential Thrombocythemia ([facility]) - 03/31/2019 Ckd (Chronic Kidney Disease) Stage 3, Gfr 30-59 Ml/Min ([facility]) - 03/31/2019 Hypertriglyceridemia 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 S/P Drug Eluting Coronary Stent Placement - 11/25/2018 Stage 2 Chronic Kidney Disease - 11/10/2018 Nstemi (Non-St Elevated Myocardial Infarction) ([facility]) - 10/24/2018 Bph (Benign Prostatic Hyperplasia) - 10/05/2018 History of Right Nephrectomy - 10/05/2018 Nocturia - 03/19/2018 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 Cll (Chronic Lymphocytic Leukemia) ([facility]) - 06/13/2017 Iron Deficiency Anemia - 06/13/2017 Renal Cancer, Right ([facility]) - 04/29/2017 Essential Hypertension Multiple Lipomas Gerd [...] antibiotic Ulises Ramos DO documented in this encounterUniversity Hospitals Lake [facility] Medical Center02-20-2023 History of Present illness Narrative* Sia Hodge, [...] 43 Sia Hodge PT documented in this encounterUniversity Hospitals Lake West Medical Center02-17-2023 History of Present illness Narrative* Sia Hodge [...] created on 03/18/22 through 05/17/22-extended through 07/30/22 Ralph in home exercise program.-Progressing Patient will decrease [...] Patient to be seen for Therapeutic exercise (57590), Neuromuscular re-education (85856), Manual therapy (75744), Therapeutic activities (25024), Self-longterm management (30709), Gait Training (71442), Patient/Family/Caregiver Education PLAN FOR NEXT VISIT: general [...] 43 Sia Hodge PT documented in this encounterUniversity Hospitals Lake West Medical Center02-09-2023 History of Present illness Narrative* Wilton Palma [...] like to speak with a social work steam tender to help give you support for any [...] you up for automated weekly questionnaires through [employer]. This is an easy way for us [...] 23, 2022 10:11 AM documented in this encounterUniversity Hospitals Lake West Medical Center02-08-2023 Miscellaneous Notes* Telephone Encounter - Essie Rivera LPN - 05/22/2022 3:20 PM EST Pharmacy [facility] message requesting the following refill Refill(s) Requested: Requested Prescriptions Pending Prescriptions Disp Refills zolpidem (AMBIEN) 5 mg tablet [Pharmacy Med Name: Zolpidem Tartrate 5 MG Oral Tablet] 30 tablet 0 Sig: TAKE 1 TABLET BY MOUTH ONCE DAILY AT BEDTIME NEEDED FOR UP TO 30 DAYS ALLERGIES Allergen Reactions Doxycycline Intolerance Rash, diarrhea Penicillin Hives Penicillin V Potass* Other: See Comments (home) [phone] (cell) Last Office Visit Date: 03/22/2022 Last [facility] Visit: Visit date not found Future Appointment: 06/21/2022 The patients preferred pharmacy has been captured for this encounter? yes Request is for script(s) to be escript to pharmacy. Essie Rivera LPN documented in this encounterUniversity Hospitals Lake West Medical Center01-31-2023 Miscellaneous Notes* Telephone Encounter - Pari Pickett [...] advise. Pari Pickett Ma documented in this encounterUniversity Hospitals Lake West Medical Center01-17-2023 Miscellaneous Notes* Telephone Encounter - Vivian Galvin RN - 04/30/2022 1:22 PM EST PT wanted to know if Dr. Gallardo had reviewed his most recent blood work results from 04/23/22 to see if he is doing better and his bleeding is improving. Has had several iron infusions. Let him know would ask MD. Vivian Galvin RN documented in this encounterUniversity [facility] Miscellaneous Notes* Telephone Encounter - Vivian Galvin RN - 04/23/2022 8:37 AM EST Details for this will be documented in other encounter, where trying to continue to work on PA for med. Vivina Galvin RN * Telephone Encounter - Kristie [...] cost less money. Patient documented in this encounterUniversity [facility]als [facility]01-05-2023 History of Present illness Narrative* Wilton Palma RN - 04/18/2022 1:06 PM EST INSIGHT CDM TELEPHONIC OUTREACH Provider Action/FYI: CDM: CKD Left a message to verify symptom status and needs, Instructed to call PCP with any changes in condition Contact made with patient: No - Left message Hello my name is Wilton Palma RN your 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 from the [facility] I am callingtoday for your bi-weekly check [...] 18, 2022 1:06 PM documented in this encounterUniversity [facility]als [facility]01-04-2023 Miscellaneous Notes* Telephone Encounter - Annmarie Ronquillo [...] Provider: ANNMARIE RONQUILLO PA-C documented in this encounterUniversity [facility]als [facility]01-04-2023 History of Present illness Narrative* RT Vandana(Placido) [...] 17, 2022 1:16 PM documented in this encounterUniversity Hospitals [facility]01-04-2023 Instructions* Patient Instructions* Annmarie Ronquillo PA-C - 04/17/2022 11:19 AM EST For X-rays, go to: [facility], [place] [phone] Call [phone] Imaging Friday: Closed Friday: 7 a.m. - 6:30 p.m. Friday: 7 a.m. - 6:30 p.m. Friday: 7 a.m. - 6:30 p.m. : 7 a.m. - 6:30 p.m. Friday: 7 a.m. - 6:30 p.m. Friday: 8 a.m. - Noon documented in this encounterUniversity Hospitals [facility]01-04-2023 History of Present illness Narrative* Annmarie Ronquillo PA-C - 04/17/2022 11:08 AM EST This note was created using [employer]. 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 Completed questions in [employer] system and sent to insurance, will await next steps. Vivian Galvin RN documented in this encounterUniversity Hospitals [facility]12-22-2022 Miscellaneous Notes* Telephone Encounter - Derek Horne MA - 04/04/2022 4:39 PM EST Pt informed. Derek Horne MA * Telephone Encounter - Halle Dale MD - 04/04/2022 12:19 PM EST I wrote back to his GI doc. Waiting for her to put in the orders for sandostatin LAR, then we can schedule monthly injection at [place]. Please let him know. Thanks * Telephone Encounter - Derek Horne MA - 04/04/2022 11:09 AM EST Pt called to see if Dr Dale heard from his doctor recently about switching medications to Sandostatin to help with the bleeding in his intestines. Derek Horne MA documented in this encounterUniversity Hospitals [facility]12-21-2022 History of Present illness Narrative* Sia Hodge PT - 04/03/2022 2:58 PM EST Episode Visit Count: 3 Therapist That Will Accept/Oversee The Plan Of Care: Zachary Hogde Start of Care Date: 03/18/22 Onset Date: [...] 43 Sia Hodge PT documented in this encounterUniversity Hospitals [facility]12-21-2022 Miscellaneous Notes* Telephone Encounter - Essie Rivera LPN - 04/03/2022 10:52 AM EST Pharmacy Newsreps message requesting the following refill Refill(s) Requested: Requested Prescriptions Pending Prescriptions Disp Refills zolpidem (AMBIEN) 5 mg tablet [Pharmacy Med Name: Zolpidem Tartrate 5 MG Oral Tablet] 30 tablet 0 Sig: TAKE 1 TABLET BY MOUTH ONCE DAILY AT BEDTIME FOR UP TO 30 DAYS ALLERGIES Allergen Reactions Doxycycline Intolerance Rash, diarrhea Penicillin Hives Penicillin V Potass* Other: See Comments (home) [phone] (cell) Last Office Visit Date: 03/22/2022 Last Distance Health Visit: Visit date not found Future Appointment: 06/21/2022 The patients preferred pharmacy has been captured for this encounter? yes Request is for script(s) to be escript to pharmacy. Essie Rivera LPN documented in this encounterUniversity Hospitals [facility]12-14-2022 History of Present illness Narrative* Hortencia Gallardo [...] needed -Start Sandostatin LAR 20mg monthly with restaurant team member -If Hgb can be maintained with the [...] loss Hortencia Gallardo MD 03/27/22 0800 Staff Furniture Associate [facility] [place] [facility] , REFERRING PROVIDER: Aly Cannon [address] [facility] [id number] REASON FOR REFERRAL: Small bowel bleeding HISTORY: [...] when he goes to appointments. Attends [employer] class twice a week. Doing PT. -10 [...] of records, and documentation. documented in this encounterUniversity Hospitals [facility]12-12-2022 History of Present illness Narrative* Kaleigh Mueller [...] 43 Kaleigh Mueller PTA documented in this encounterUniversity Hospitals [facility]12-09-2022 History of Present illness Narrative* Halle Dale [...] had US kidney and CT abdomen at [facility] to monitor his kidney cancer with [...] Abs. Lymph 0.84 - 2.85 thou/cmm Abs. Brooke 0.30 - 0.82 thou/cmm Abs. Eosin 0.04 [...] Lymph 1.00 - 4.00 k/uL 31.18 (H) Brooke% % 17.2 Abs Brooke <0.87 k/uL 7.96 (H) Eosin% % 0.2 [...] CT A/P w/ IV contrast on 01/19/2022 ([facility]) Right inguinal hernia containing loops of bowel. [...] Pathology: none Assessment and Plan: Mr. 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 GIB - admitted to [facility] in 04/2021 with Hb 4.8, transfused 7 [...] Level: 4 - Moderate documented in this encounterUniversity Hospitals [facility]12-08-2022 Miscellaneous Notes* Telephone Encounter - Roland Borges Ma - 03/21/2022 9:04 AM EST Called patient and left message that their test results are viewable on Newsreps, if they have any questions to call the office. Roland Borges MA * Telephone Encounter - Roland Borges Ma - 03/21/2022 9:04 AM EST ----- Message from Loy Mcallister MD sent at 03/21/2022 9:02 AM EST ----- Notify patient PSA remains stable at 5.28. documented in this encounterUniversity Hospitals [facility]12-05-2022 History of Present illness Narrative* Wilton Palma [...] like to speak with a social work steam tender to help give you support for any [...] you up for automated weekly questionnaires through Newsreps. This is an easy way for us [...] my name is Wilton Palma RN your 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 from the [facility] I am callingtoday for your bi-weekly check in. I am sorry I missed your call. I will reach out to you again tomorrow. (if the third call I will reach out to you again next week) Enter next patient outreach date for the following day using the Track Pt Outreach. End outreach. MEHUL Knowles RN March 14, 2022 11:10 AM documented in this encounterUniversity Hospitals [facility]12-05-2022 Miscellaneous Notes* Telephone Encounter - Alison Ibarra [...] Penicillin V Potass* Other: See Comments (home) [phone] (cell) Last Office Visit Date: 12/20/2021 Last [facility] Health Visit: Visit date not found Future Appointment: 03/22/2022 The patients preferred pharmacy has been captured for this encounter? yes Request is for script(s) to be escript to pharmacy. Alison Ibarra RN documented in this encounterUniversity Hospitals [facility]11-09-2022 Miscellaneous Notes* Telephone Encounter - Courtney Cabezas - 02/20/2022 5:14 PM EST Referral information submitted to [facility]. Ref# [id number]. [facility] Specialty office will call the patient within 7-10 business days to set this appointment up. * Telephone Encounter - Juana Guerra RN - 02/20/2022 2:23 PM EST Patient requesting order for physical therapy following hernia repair surgery. documented in this encounterUniversity Hospitals [facility]11-04-2022 Miscellaneous Notes* Telephone Encounter - Cherri Contreras - 02/15/2022 12:24 PM EDT Andie from Dr. [facility] of[facility] called and wanted you to look at pt's CT. He has swollen kidney. Would like pt to see you roque. Mari Fenton documented in this encounterUniversity [facility]als [facility]11-02-2022 Miscellaneous Notes* Telephone Encounter - Derek Horne MA - 02/13/2022 2:16 PM EDT Pt came in to let us know he had emergency hernia surgery 01/20/22 and blood work he stated the US showed something on his L Ureter. He wanted to keep Dr Dale in the loop. Derek Horne MA documented in this encounterUniversity Hospitals [facility]11-02-2022 History of Present illness Narrative* RT Arvin(R) [...] 13, 2022 10:10 AM documented in this encounterUniversity Hospitals [facility] Center2022 History of Present illness Narrative* Louie Silva RN - 02/06/2022 10:25 AM EDT INSIGHT CDM TELEPHONIC OUTREACH Provider Action/FYI: Routed updates to Dr. Ramos- No action required Spk with Pt he reports 01/19/22 had severe Right Abd/ groin pain, squad called Pt was transported [facility]. Pt reports underwent Hernia repair on [...] chills. Pt had a CT while at [facility] and is has contacted his Consumer Educator for a follow up Appt related to [...] like to speak with a social work steam tender to help give you support for any [...] you up for automated weekly questionnaires through Newsreps. This is an easy way for us [...] 06, 2022 10:25 AM documented in this [facility]10-13-2022 Miscellaneous Notes* Telephone Encounter - Emilee Lake [...] wants him to do? documented in this [facility]10-06-2022 Instructions* Patient Instructions* Loy Mcallister MD - 01/17/2022 3:33 PM EDT Its good to see you today. Please continue with a PSA every 6 months. I'll see you annually provided your symptoms are stable. documented in this [facility]10-06-2022 History of Present illness Narrative* Loy Mcallister MD - 01/17/2022 2:57 PM EDT Images from the original note were not included. [facility] [place] ESTABLISHED PATIENT OFFICE VISIT HISTORY OF PRESENT [...] extrapolated by contextual derivation. documented in this encounterUniversity Hospitals [facility]10-06-2022 Miscellaneous Notes* Telephone Encounter - Ashley Li Cma - 01/17/2022 9:44 AM EDT Patient called stated he was planning on having labs done and was wondering if you wanted another PSA done any time soon.Please advise. Ashley Li Cma documented in this encounterUniversity Hospitals [facility]10-05-2022 Miscellaneous Notes* Telephone Encounter - Pratibha Haque MA - 01/16/2022 9:27 AM EDT Separate [employer] message sent to [facility]. Added in other message that this picture was sent in. documented in this encounterUniversity Hospitals [facility]09-15-2022 Miscellaneous Notes* Telephone Encounter - Quyen Thomason Cma - 12/27/2021 2:50 PM EDT Called patient and left a voicemail notifying patient that I would send him a message in Newsreps with results. Quyen Thomason Cma * Telephone [...] PSA stable at 6.95 documented in this encounterUniversity Hospitals [facility]09-07-2022 History of Present illness Narrative* Louei Silva RN - 12/19/2021 3:50 PM EDT [...] like to speak with a social work steam tender to help give you support for any [...] you up for automated weekly questionnaires through Newsreps. This is an easy way for us [...] 19, 2021 3:50 PM documented in this encounterUniversity Hospitals [facility]08-31-2022 History of Present illness Narrative* Wilbert Watkins MD - 12/12/2021 4:00 PM EDT VIRTUAL VISIT PROGRESS NOTE This is a virtual visit using Newsreps video visit. It required patient-provider interaction for [...] to the hospital with presyncope. Admitted to [facility], transfused 7 units pRBC, Hgb of 4 [...] erosions. Dr. nEio Degroot. HEMORRHOID SURGERY HX 2000 LAP NEPHRECTOMY [...] Mr. David, a capsule endoscopy performed at [facility] revealed small bowel angioectasias. Some of [...] PACCevaluation as well as clearance from his controls technician particularly if the stress test is indicated. Mr. David I will discuss this further early next week. I spent a total of 40 minutes on the date of the service which included preparing to see the patient and [id number] patient care documented in this encounterUniversity Hospitals [facility]08-26-2022 History of Present illness Narrative* Sia Hodge [...] 43 Sia Hodge PT documented in this encounterUniversity Hospitals [facility]08-23-2022 Miscellaneous Notes* Telephone Encounter - Karina Delgado Coord - 12/04/2021 12:35 PM EDT Patient called our office today as he said that he was referred to [facility] for a scope forhis bleeding lesions. I asked him more information on if he needs to see a surgeon or a GI doctor. He wasn't sure. He will call Dr. Morrow's office to find out. I provided him our office number if heneeds surgery evaluation and provided him the GI Scheduling line if he needs GI. documented in this encounterUniversity Hospitals [facility]08-22-2022 History of Present illness Narrative* Ulises Ramos DO - 12/03/2021 2:16 PM EDT Here for chronic diarrhea, GI doc going to get him scope at [facility] but the diarrhea persists. 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 ([facility]) - 03/14/2021 Leg Swelling - 03/14/2021 Leukocytosis - 03/31/2019 Essential Thrombocythemia ([facility]) - 03/31/2019 Ckd (Chronic Kidney Disease) Stage 3, Gfr 30-59 Ml/Min ([facility]) - 03/31/2019 Hypertriglyceridemia 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 S/P Drug Eluting Coronary Stent Placement - 11/25/2018 Stage 2 Chronic Kidney Disease - 11/10/2018 Nstemi (Non-St Elevated Myocardial Infarction) ([facility]) - 10/24/2018 Bph (Benign Prostatic Hyperplasia) - 10/05/2018 History of Right Nephrectomy - 10/05/2018 Nocturia - 03/19/2018 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 Cll (Chronic Lymphocytic Leukemia) ([facility]) - 06/13/2017 Iron Deficiency Anemia - 06/13/2017 Renal Cancer, Right ([facility]) - 04/29/2017 Essential Hypertension Multiple Lipomas Gerd [...] TABLET Ulises Ramos DO documented in this encounterUniversity [facility]08-20-2022 History of Present illness Narrative* Sia Hodge, [...] 43 Sia Hodge PT documented in this encounterUniversity [facility]als [facility]08-11-2022 Miscellaneous Notes* Telephone Encounter - Alison Ibarra [...] Doxycycline Intolerance Rash, diarrhea Penicillin Hives (home) [phone] (cell) Last Office Visit Date: 09/19/2021 Last Distance Health Visit: Visit date not found Future Appointment: 12/20/2021 The patients preferred pharmacy has been captured for this encounter? yes Request is for script(s) to be escript to pharmacy. Alison Ibarra RN documented in this encounterUniversity Hospitals [facility]08-08-2022 Miscellaneous Notes* Telephone Encounter - Derek Horne [...] him. Derek Horne MA documented in this encounterUniversity Hospitals [facility]08-08-2022 History of Present illness Narrative* Kaleigh Mueller [...] 43 Kaleigh Mueller PTA documented in this encounterUniversity Hospitals [facility]08-04-2022 History of Present illness Narrative* Louie Silva RN - 11/15/2021 3:14 PM EDT [facility] TELEPHONIC OUTREACH Provider Action/FYI: Call to Pt left a message to verify CKD or other symptoms or concerns. Contact made with patient: No - Left message Hello my name is Wilton Palma RN your 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 from the [facility] I am callingtoday for your bi-weekly check [...] Silva RN - 11/13/2021 4:08 PM EDT [facility] TELEPHONIC OUTREACH Provider Action/FYI: Call to Pt left a message to verify CKD or other symptoms or concerns. Contact made with patient: No - Left message Hello my name is Wilton Palma RN your 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 from the [facility] I am callingtoday for your bi-weekly check [...] 13, 2021 4:08 PM documented in this encounterUniversity [facility]als [facility]08-01-2022 History of Present illness Narrative* Heaven Shelley [...] 43 Heaven Shelley PTA documented in this encounterUniversity Hospitals [facility] Center07-27-2022 Miscellaneous Notes* Telephone Encounter - Kendy Burns [...] ER. Patient states he isn't even in [place] at the present time. * Telephone Encounter [...] pcp. Pt states he is established at [facility] with Dr. Roman and that Dr. Roman is his back up because Dr. Ramos is booked to [facility] out. Pt wants to see Dr. Roman for chronic diarrhea for 3 weeks. Was Patient Referred to [facility]/Seek Emergency Treatment (Y/N): NA Did Patient Agree (Y/N): NA Was An Attempt Made To Transfer The Patient To The Office (Y/N): NA Were You Able To Reach Someone At The Office (Y/N): NA If Yes - Patient Was Transferred To (Caregivers Name): NA If No - Which [facility] Leadership Retail Marketing Specialist Did You Speak With Regarding This Patient: NA Was an appointment scheduled (Y/N): [id number] denied due to symptoms Reason patient was requesting visit (RFV/signs and symptoms/diagnosis) : Chronic diarrhea Person calling if other than patient: patient Return call to if other than patient: patient Best contact number: [phone] Thank you, Sierra Concepcion November 07, 2021 12:32 PM documented in this encounterUniversity Hospitals [facility]07-15-2022 History of Present illness Narrative* Louie Silva RN - 2021 12:18 PM EDT PRIMARY CARE COORDINATION QUICK NOTE Provider Action/FYI Opened in error Patient identified by name and date . Wilton Palma RN 2021 12:18 PM documented in this encounterUniversity Hospitals [facility] Center07-15-2022 History of Present illness Narrative* Louie Silva RN - 2021 12:14 PM EDT INSIGHT CDM TELEPHONIC OUTREACH Provider Action/FYI: Call to Pt left a message to verify CKD or other symptoms or concerns. Contact made with patient: No - Left message Hello my name is Wilton Palma RN your 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 from the [facility] I am callingtoday for your bi-weekly check in. I am sorry I missed your call. I will reach out to you again tomorrow. (if the third call I will reach out to you again next week) Enter next patient outreach date for the following business day using the Track Pt Outreach. End outreach. Wilton Palma RN 2021 12:14 PM documented in this encounterUniversity Hospitals [facility]07-15-2022 Miscellaneous Notes* Telephone Encounter - Alison Ibarra RN - 2021 8:27 AM EDT Pharmacy requesting the following refill Refill(s) Requested: Pending Prescriptions Disp Refills HYDROXYUREA 500 MG CAPSULE 180 capsule 0 Sig: TAKE 3 CAPSULES BY MOUTH ONCE DAILY JEOVANNY: Yes ALLERGIES Allergen Reactions Doxycycline Intolerance Rash, diarrhea Penicillin Hives (home) [phone] (cell) Last Office Visit Date: 09/19/2021 Last [facility] Health Visit: Visit date not found Future Appointment: 12/20/2021 The patients preferred pharmacy has been captured for this encounter? yes Request is for script(s) to be escript to pharmacy. Alison Ibarra RN documented in this encounterUniversity Hospitals [facility]07-15-2022 Miscellaneous Notes* Telephone Encounter - Pratibha Barba [...] accordingly. Pratibha Barba LPN documented in this encounterUniversity Hospitals [facility]07-14-2022 Miscellaneous Notes* Telephone Encounter - Courtney Montana Pss - 10/25/2021 1:24 PM EDT Referral information submitted to [facility]. Ref# [id number]. [facility] Specialty office will call the patient within [...] at his appointment yesterday. documented in this encounterUniversity Hospitals [facility]07-14-2022 Miscellaneous Notes* Telephone Encounter - Bernarda Sarah RN - 10/25/2021 11:03 AM EDT Patient notified. * Telephone Encounter - Ary Araujo Ma - 10/25/2021 10:57 AM EDT ----- Message from Ulises Ramos DO sent at 10/24/2021 7:56 AM EDT ----- All labs are normal, notify patient documented in this encounterUniversity Hospitals [facility]07-13-2022 Miscellaneous Notes* Telephone Encounter - Derek Horne [...] .) Derek Horne MA documented in this encounterUniversity Hospitals [facility]07-13-2022 History of Present illness Narrative* Heaven MAYITO [...] 38 Heaven Shelley PTA documented in this encounterUniversity Hospitals [facility] Center07-11-2022 History of Present illness Narrative* Ulises Ramos, [...] Social History 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 hydroxyurea (HYDREA) 500 mg capsule Take 3 capsules by mouth once daily. apixaban (ELIQUIS) 5 mg tab(s) Take 0.5 tablets by mouth twice daily. aspirin, enteric coated (ASPIRIN, ENTERIC COATED) 325 mg EC tablet Take 1 tablet by mouth twice daily for 21 days. Problem List: ACTIVE PROBLEM LIST Deng (Acute Kidney Injury) ([facility]) - 01/07/2019 (D priority) Vitamin D Deficiency - 07/17/2021 Obesity, Class I, Bmi 30-34.9 - 05/28/2021 Acute Blood Loss Anemia - 05/16/2021 Covid-19 Virus Infection - 05/16/2021 Severe Protein-Calorie Malnutrition ([facility]) - 05/09/2021 Severe Anemia - 05/02/2021 Cira (Obstructive Sleep Apnea) - 05/01/2021 Deep Vein Thrombosis (Dvt) of Femoral Vein of Left Lower Extremity ([facility]) - 03/14/2021 Leg Swelling - 03/14/2021 Leukocytosis - 03/31/2019 Essential Thrombocythemia ([facility]) - 03/31/2019 Ckd (Chronic Kidney Disease) Stage 3, Gfr 30-59 Ml/Min ([facility]) - 03/31/2019 Hypertriglyceridemia 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 S/P Drug Eluting Coronary Stent Placement - 11/25/2018 Stage 2 Chronic Kidney Disease - 11/10/2018 Nstemi (Non-St Elevated Myocardial Infarction) ([facility]) - 10/24/2018 Bph (Benign Prostatic Hyperplasia) - 10/05/2018 History of Right Nephrectomy - 10/05/2018 Nocturia - 03/19/2018 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 Cll (Chronic Lymphocytic Leukemia) ([facility]) - 06/13/2017 Iron Deficiency Anemia - 06/13/2017 Renal Cancer, Right ([facility]) - 04/29/2017 Essential Hypertension Multiple Lipomas Gerd [...] DO Ulises Perdomo DO documented in this encounterUniversity Hospitals [facility] Center07-11-2022 History of Present illness Narrative* Heaven Shelley [...] 38 Heaven Shelley PTA documented in this encounterUniversity Hospitals Lake [facility]07[facility]22 Miscellaneous Notes* Telephone Encounter - Derek Horne [...] Horne MA - 10/18/2021 1:41 PM EDT [facility] pharmacy in [place] called they received the zolpidem 5mg prescription the pt states 5mg doesn't work and he needs 10mg do you want to send a new script for 10mg? Derek Horne MA documented in this encounterUniversity Hospitals Lake [facility]07-07-2022 Miscellaneous Notes* Telephone Encounter - Lolis Lazaro [...] accordingly. Lolis Lazaro LPN documented in this encounterUniversity Hospitals Lake [facility] Center07-07-2022 Miscellaneous Notes* Telephone Encounter - Halle Dale MD - 10/18/2021 8:59 AM EDT Orders are placed. documented in this encounterUniversity Hospitals Lake [facility] Center07-06-2022 Miscellaneous Notes* Telephone Encounter - Annmarie Ronquillo PA-C - 10/17/2021 8:31 AM EDT Message sent to patient via Newsreps: Dear Mr. David Minoodiogo, my name is Annmarie Ronquillo and I am covering for Ulises Ramos DO. I saw your message from yesterday. Yes your hemoglobin was only 7.2. It looks like you were able toarrange a transfusion through your restaurant team member Dr. Dale? Please let me know if you need anything from family medicine. I hope you are feeling better soon. Regards, Annmarie Ronquillo PA-C * Telephone Encounter - Angy Avelar - 10/17/2021 8:14 AM EDT Regarding recent labs. Angy Avelar documented in this encounterUniversity Hospitals Lake West Medical Center07-05-2022 History of Present illness Narrative* Halle Dale MD - 10/16/2021 10:14 PM EDT Derek, please schedule 1 unit pRBC transfusion. Orders are in. Thank you documented in this encounterUniversity Hospitals Lake West Medical Center06-30-2022 Miscellaneous Notes* Telephone Encounter - Alison Ibarra RN - 10/11/2021 1:05 PM EDT Pharmacy requesting the following refill Refill(s) Requested: Pending Prescriptions Disp Refills ZOLPIDEM 5 MG TABLET 30 tablet 0 Sig: TAKE 1 TABLET BY MOUTH ONCE DAILY AT BEDTIME NEEDED FOR UP TO 30 DAYS WENDY Class: C-IV JEOVANNY: Yes ALLERGIES Allergen Reactions Doxycycline Intolerance Rash, diarrhea Penicillin Hives (home) [phone] (cell) Last Office Visit Date: 09/19/2021 Last [facility] Health Visit: Visit date not found Future Appointment: 12/20/2021 The patients preferred pharmacy has been captured for this encounter? yes Request is for script(s) to be escript to pharmacy. Alison Ibarra RN documented in this encounterUniversity Hospitals Lake [facility] Medical Center06-30-2022 Miscellaneous Notes* Telephone Encounter - Bernarda Sarah [...] thinners. He will be flying out to [place] on 10/25. Made an appointment for him with Dr. Ramos on 10/22. However, if possible he would still like to speak to a nurse or Dr. Ramos before the appointment. Please advise. Thank you! documented in this encounterUniversity Hospitals Lake West Medical Center06-29-2022 Miscellaneous Notes* Telephone Encounter - Shahla Prakash [...] amlodipine. Shahla Prakash LPN documented in this encounterUniversity Hospitals Lake West Medical Center06-29-2022 History of Present illness Narrative* Louie Silva RN - 10/10/2021 1:13 PM EDT [facility] TELEPHONIC OUTREACH Provider Action/FYI: Spk with [...] like to speak with a social work steam tender to help give you support for any [...] you up for automated weekly questionnaires through Newsreps. This is an easy way for us [...] 10, 2021 1:13 PM documented in this encounterUniversity Hospitals Lake West Medical Center06-28-2022 Miscellaneous Notes* Telephone Encounter - Halle Dale [...] 10/25. Derek Horne MA documented in this encounterUniversity Hospitals Lake West Medical Center06-28-2022 History of Present illness Narrative* Sia Ayesha, [...] created on 07/06/21 through 09/03/21-extended through 12/08/21 Ralph in home exercise program. ONGOING Patient will [...] Patient to be seen for Neuromuscular re-education (29456);Therapeutic exercise (02341);Manual therapy (00449);Therapeutic activities (33309);Gait Training (38527);Patient/Family/Caregiver Education;E-Stim Unattended (35257) PLAN FOR NEXT VISIT: strength and conditioning, balance SUBJECTIVE: Patient Reason for Visit: L LE and deconditioning. States that he is doing better, but is still unable to balance on the left lower extremity and notes decreased strength throughout the left lower extremity. He also states that he took himself off of his eliquis and has a planned flightin October to [place]. I discussed the importance of letting his [...] 43 Sia Hodge PT documented in this encounterUniversity Hospitals Lake West Medical Center06-23-2022 Miscellaneous Notes* Telephone Encounter - Pratibha Barba LPN - 10/04/2021 8:50 AM EDT I called and spoke to and informed him of Melissa's response to lab results and recommendations. Patient voiced understanding. Pratibha Barba LPN * Telephone Encounter - Pratibha Barba LPN - 10/04/2021 8:46 AM EDT ----- Message from Melissa Raymond APRN.ASSISTANT WINEMAKER sent at 10/04/2021 8:40 AM EDT ----- Please call the patient, and let them know the results of the blood work is amazing with repatha injection No change in medical treatment at this time. Please keep all appointments as scheduled. documented in this encounterUniversity Hospitals Lake West Medical Center06-22-2022 History of Present illness Narrative* Heaven Shelley [...] 43 Heaven Shelley PTA documented in this encounterUniversity Hospitals Lake West Medical Center06-21-2022 History of Present illness Narrative* Melissa Raymond APRN.ASSISTANT WINEMAKER - 10/02/2021 1:30 PM EDT PRIMARY CARE PHYSICIAN: Ulises Ramos [address] [place] [address] Chief Complaint Patient presents with: CARD Follow [...] found to be anemic, was admitted to [facility] and underwent GI evaluation with endoscopic [...] ago, but is going to ask his Home Care Associate to see if he should continue. apixaban [...] further coordination of care. documented in this encounterUniversity Hospitals Lake West Medical Center06-21-2022 Nurse Note* Pratibha Barba LPN - 10/02/2021 1:17 PM EDT Patient c/o SOB with activity and increased fatigue. documented in this encounterUniversity Hospitals Lake West Medical Center06-17-2022 Miscellaneous Notes* Telephone Encounter - Delaney Turk [facility] - 09/28/2021 3:40 PM EDT Pharmacy-Reviewed Medication History Patient Name:Linda David : 1955 Patient Contact Attempt: First attempt Adherence Packing Program Accepted? No, patient does not wish to participate. Patient is not interested at the time wants to stay at [facility] and decrease his meds. Gave him our phone number to reach out in case he is ever interested, thank you! Delaney Turk, PharmD, [facility] [phone] documented in this encounterUniversity Hospitals Lake West Medical Center06-15-2022 Miscellaneous Notes* Telephone Encounter - Halle Dale MD - 09/26/2021 2:54 PM EDT I'm not aware of such limit. Please let him know. Thanks for double checking. * Telephone Encounter - Elsie Gallo MA - 09/26/2021 11:55 AM EDT Patient wants to know if he has an altitude limit he has to stay under? He is traveling and will beflying over 8,000 feet. [phone]. Elsie Gallo MA documented in this encounterUniversity Hospitals Lake [facility] Medical Center06-15-2022 History of Present illness Narrative* Louie Silva RN - 09/26/2021 11:22 AM EDT INSIGHT [facility] TELEPHONIC OUTREACH Provider Action/FYI: Call to Pt left a message to verify CKD or other symptoms or needs. Encouraged adequate hydration with hot / humid weather. Contact made with patient: No - Left message Hello my name is Wilton Palma RN your 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 from the [facility] I am callingtoday for your bi-weekly check in. I am sorry I missed your call. I will reach out to you again tomorrow. (if the third call I will reach out to you again next week) Enter next patient outreach date for the following day using the Track Pt Outreach. End outreach. 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 BABY [...] Abs. Lymph 0.84 - 2.85 thou/cmm Abs. Brooke 0.30 - 0.82 thou/cmm Abs. Eosin 0.04 [...] k/uL 5.93 (H) 17.61 (H) 8.02 (H) Brooke% % 35.2 1.0 31.6 Abs Brooke <0.87 k/uL 4.76 (H) 0.25 4.88 (H) Eosin% % 0.3 0.0 0.1 Abs Eosin <0.46 k/uL 0.04 0.00 <0.03 Baso% % 0.3 0.0 0.1 Abs Baso <0.11 k/uL 0.04 0.00 <0.03 [facility]% % Component Latest Ref Rng & Units [...] proportion; a sequence change of c. 1514G>A (p.[id number]) in exon 10 was detected at approximately [...] Level: 4 - Moderate documented in this encounterUniversity Hospitals Lake West Medical Center06-02-2022 History of Present illness Narrative* Sierra Ortiz [...] 38 Sierra Ortiz PT documented in this encounterUniversity Hospitals Lake [facility] Medical Center06-02-2022 Miscellaneous Notes* Telephone Encounter - Love Meg [...] get his urine checked. documented in this encounterUniversity Hospitals Lake West Medical Center06-01-2022 History of Present illness Narrative* Ulises Ramos, [...] Social History 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 ([facility]) - 03/14/2021 Leg Swelling - 03/14/2021 Leukocytosis - 03/31/2019 Essential Thrombocythemia ([facility]) - 03/31/2019 Ckd (Chronic Kidney Disease) Stage 3, Gfr 30-59 Ml/Min ([facility]) - 03/31/2019 Hypertriglyceridemia Rhodes Esophagus S/P Ptca (Percutaneous Transluminal Coronary Angioplasty) - 11/25/2018 S/P Drug Eluting Coronary Stent Placement - 11/25/2018 Stage 2 Chronic Kidney Disease - 11/10/2018 Nstemi (Non-St Elevated Myocardial Infarction) ([facility]) - 10/24/2018 Bph (Benign Prostatic Hyperplasia) - 10/05/2018 History of Right Nephrectomy - 10/05/2018 Nocturia - 03/19/2018 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 - Registration link sent to: [email or web address] Patient identified by name and date of . Patient Attributed To: QAE Payer: ACO ([facility]) Reason for review or outreach: Contract Priority Patient qualifies for ACO Ecosystem outreach Contact made with Patient: Yes Spoke to patient. Patient identified by name and . Hi my name is Kristal De Leon RN and I am calling from the [facility]. Because you receive care from Ulises Ramos [...] appropriate. PCPoffice number provided to the patient- [phone]. For non-urgent requests, you or a family member can also message your PCP on Newsreps. Do you have access to your Newsreps account? Y For life-threatening emergencies, go to the [facility] emergency department or call 911. PCP/Specialist [...] reaching out to you by phone or Newsreps message to set up a time to review your medications. If you already see someone from our pharmacy team, that person will reach out to you. They will also request that you have your prescriptions filled by a [facility]. The reason for this is to allow us to more fully help you manage your medications and your disease conditions in the most comprehensive way. It also allows Ulises Ramos DO to have the most up to date access to your medication information. To learn more about [facility] locations and services, visit our website at [email or web address] or call [phone] ([phone]). RX Consult to outpatient pharmacy placed- Reason [...] routines. Can we connect you with a [facility] Health Appliance Servicer to find a program that could help you meet your goals? No Clarity- Managing your health can be stressful, and to support you in your wellness journey the [facility] offers an emotional health and well-being program [...] Patient agreeable to Sheridan Jiang E-mail confirmed: [email or web address] Registration link sent to Patient: [email or web address] Route encounter to : P Wellness ECoaching- Indicate ACO Patient & which program they are interested in (Clarity) Add comment to Action/FYI PCSW- We would like to make sure you have what you need so that your basics needs are met - including your personal safety, food, housing and medications. Would you like to speak with a social work steam tender to help give you support for any of these needs? No BHSW- It can be normal to feel anxious or down during a time like this. Would you like to talk to amental health professional about how you have been feeling? No Action Taken: No action taken Kristal De Leon RN September 11, 2021 10:41 AM documented in this encounterUniversity Hospitals Lake West Medical Center05-31-2022 Evaluation note* Diagnosis Stage 3 chronic kidney disease, unspecified whether stage 3a or 3b CKD (HCC)- Primary documented in this encounter [facility]05[facility]-2022 Miscellaneous Notes* Telephone Encounter - Loraine Ibarra [...] regards to urine frequency. documented in this encounterUniversity Hospitals Lake West Medical Center05-25-2022 History of Present illness Narrative* Heaven Shelley [...] 40 Heaven Shelley PTA documented in this encounterUniversity Hospitals Lake [facility] Medical Center05-19-2022 History of Present illness Narrative* Loy Mcallister [...] like to speak with a social work steam tender to help give you support for any [...] you up for automated weekly questionnaires through Newsreps. This is an easy way for us [...] my name is Wilton Palma RN your 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 from the [facility] I am calling today for your bi-weekly check in. I am sorry I missed your call. I will reach out to you again tomorrow. (if the third call I will reach out to you again next week) Enter next patient outreach date forthe using the Track Pt Outreach. End outreach. Wilton Palma RN August 29, 2021 10:37 AM documented in this encounterUniversity Hospitals Lake [facility] Medical Center05-18-2022 History of Present illness Narrative* Heaven Shelley [...] 45 Heaven Shelley PTA documented in this encounterUniversity Hospitals Lake [facility] Medical Center05-16-2022 History of Present illness Narrative* Sierra Ortiz, [...] of Care: created on 07/06/21 through 09/03/21 Ralph in home exercise program. ONGOING Patient will [...] Patient to be seen for Neuromuscular re-education (70158);Therapeutic exercise (48666);Manual therapy (83432);Therapeutic activities (43591);Gait Training (97031);Patient/Family/Caregiver Education;E-Stim Unattended (84681) PLAN FOR NEXT VISIT: strength and conditioning, [...] 40 Sierra Ortiz PT documented in this encounterUniversity Hospitals Lake [facility] Medical Center05-10-2022 Miscellaneous Notes* Telephone Encounter - Rosalinda Melchor LPN - 08/21/2021 8:44 AM EDT Pharmacy faxed requesting the following refill Refill(s) Requested: Pending Prescriptions Disp Refills DOXYCYCLINE HYCLATE 100 MG CAPSULE 60 capsule 0 Sig: Take 1 capsule by mouth twice daily for 7 days JEOVANNY: Yes ALLERGIES Allergen Reactions Doxycycline Intolerance Rash, diarrhea Penicillin Hives (home) [phone] (cell) Last Office Visit Date: 07/17/2021 Last [facility] Health Visit: Visit date not found Future Appointment: Visit date not found The patients preferred pharmacy has been captured for this encounter? yes Request is for script(s) to be escript to pharmacy. Rosalinda Melchor LPN documented in this encounterUniversity Hospitals Lake [facility] Medical Center05-04-2022 Miscellaneous Notes* Telephone Encounter - Lani Ochoa [...] MRI of his prostate. documented in this encounterUniversity Hospitals Lake West Medical Center05-03-2022 Miscellaneous Notes* Telephone Encounter - Alison Ibarra [...] it. Derek Horne MA documented in this encounterUniversity Hospitals Lake West Medical Center05-03-2022 History of Present illness Narrative* Heaven Shelley [...] 45 Heaven Shelley PTA documented in this encounterUniversity Hospitals Lake [facility] Medical Center05-02-2022 History of Present illness Narrative* Louie Silva [...] like to speak with a social work steam tender to help give you support for any [...] you up for automated weekly questionnaires through Newsreps. This is an easy way for us [...] 13, 2021 12:48 PM documented in this encounterUniversity Hospitals Lake West Medical Center04-28-2022 Miscellaneous Notes* Telephone Encounter - Ary Araujo Ma - 08/09/2021 2:47 PM EDT Medical supplies and equipment form placed on [facility]'s desk. documented in this encounterUniversity Hospitals Lake West Medical Center04-28-2022 History of Present illness Narrative* Sierra Ortiz, [...] of Care: created on 07/06/21 through 09/03/21 Ralph in home exercise program. ONGOING Patient will [...] Patient to be seen for Neuromuscular re-education (15329);Therapeutic exercise (01353);Manual therapy (48188);Therapeutic activities (82809);Gait Training (62458);Patient/Family/Caregiver Education;E-Stim Unattended (71817) PLAN FOR NEXT VISIT: strength and conditioning, [...] 40 Sierra Ortiz PT documented in this encounterUniversity Hospitals Lake West Medical Center04-25-2022 History of Present illness Narrative* Louie Silva RN - 08/06/2021 12:50 PM EDT INSIGHT [facility] TELEPHONIC OUTREACH Provider Action/FYI: Call to Pt left a message to verify CKD or other symptom concerns. Contact made with patient: No - Left message Anderson my name is Wilton Palma RN your 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 from the [facility] I am calling today for your bi-weekly check in. I am sorry I missed your call. I will reach out to you again tomorrow. (if the third call I will reach out to you again next week) Enter next patient outreach date forthe using the Track Pt Outreach. End outreach. Wilton Palma RN August 06, 2021 12:50 PM documented in this encounterUniversity Hospitals Lake [facility] Medical Center04-20-2022 Miscellaneous Notes* Telephone Encounter - Ulises Ramos DO - 08/01/2021 4:08 PM EDT Will do * Telephone Encounter - Bernarda Sarah RN - 08/01/2021 3:24 PM EDT Insurance will not pay for omeprazole 20 mg BID. They prefer to pay for once daily dosing. Would 40mg once daily be appropriate? If so, please send in a new rx. documented in this encounterUniversity Hospitals Lake West Medical Center04-20-2022 History of Present illness Narrative* Heaven Shelley [...] 40 Heaven Shelley PTA documented in this encounterUniversity Hospitals Lake [facility] Medical Center04-18-2022 History of Present illness Narrative* Heaven Shelley [...] 45 Heaven Shelley PTA documented in this encounterUniversity Hospitals Lake [facility] Medical Center04-15-2022 Miscellaneous Notes* Telephone Encounter - Symone Paiz - 07/27/2021 5:41 PM EDT Referral submitted to [facility] Contact Center ([phone]). They will contact the patient to schedule.Confirmation number: [id number] Initial consult ENT H92.01 Right ear pain J34.89 Nasal sore Medicare Sandra documented in this encounterUniversity Hospitals Lake West Medical Center04-15-2022 History of Present illness Narrative* Sierra Ortiz, [...] and gait training SUBJECTIVE: Feels good today. [place] pretty worn out after last PT session [...] 40 Sierra Ortiz PT documented in this encounterUniversity Hospitals Lake [facility] Medical Center04-14-2022 History of Present illness Narrative* Louie Silva RN - 07/26/2021 10:10 AM EDT INSIGHT [facility] TELEPHONIC OUTREACH Provider Action/FYI: Call to Pt left a message to verify CKD or other symptom status or needs. Contact made with patient: No - Left message Minoolo my name is Wilton Palma RN your 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 from the [facility] I am calling today for your bi-weekly check in. I am sorry I missed your call. I will reach out to you again tomorrow. (if the third call I will reach out to you again next week) Enter next patient outreach date forthe following using the Track Pt Outreach. End outreach. Wilton Palma RN July 26, 2021 10:10 AM documented in this encounterUniversity Hospitals Lake [facility] Medical Center04-13-2022 Miscellaneous Notes* Telephone Encounter - Odilon Puentes - 07/25/2021 1:40 PM EDT Mon form on pcp desks for review and sign documented in this encounterUniversity Hospitals Lake [facility] Center04-13-2022 History of Present illness Narrative* Heaven Shelley [...] 40 Heaven Shelley PTA documented in this encounterUniversity Hospitals Lake [facility] Center04-08-2022 Miscellaneous Notes* Telephone Encounter - Halle Dale MD - 07/20/2021 2:59 PM EDT I called Mr. David. No need for iron infusion. Continue oral iron and hydrea as prescribed. * Telephone Encounter - Derek Horne MA - 07/20/2021 10:58 AM EDT Pt stopped by his brisket puller thinks he needs an iron transfusion but wanted to see what Dr Dale thought. Derek Horne MA documented in this encounterUniversity Hospitals Lake [facility] Medical Center04-08-2022 History of Present illness Narrative* Eileen Medrano [...] 45 Eileen Medrano PTA documented in this encounterUniversity Hospitals Lake [facility] Medical Center04-06-2022 Instructions* Patient Instructions* Loy Mcallister MD - 07/18/2021 2:20 PM EDT It was great to see you today! Please get a PSA prior to seeing me in 6 months. Lets try some oxybutynin at night. documented in this encounterUniversity Hospitals Lake West Medical Center04-06-2022 History of Present illness Narrative* Loy Mcallister MD - 07/18/2021 2:05 PM EDT Images from the original note were not included. [facility] [place] ESTABLISHED PATIENT OFFICE VISIT HISTORY OF PRESENT [...] extrapolated by contextual derivation. documented in this encounterUniversity Hospitals Lake [facility] Medical Center04-04-2022 Miscellaneous Notes* Telephone Encounter - Love Nielsen - 07/16/2021 7:31 AM EDT Spoke w/pt to reschedule today's appt. Pt wanted me to schedule him w/dr. [place] at . I advised pt I was unable to. Pt hung up, I called back and lvm to call w/any quest and reschedule appt at our office. Love Nielsen MA documented in this encounterUniversity Hospitals Lake [facility] Medical Center03-30-2022 History of Present illness Narrative* Louie Silva [...] Receiving PT 2x week Patient referred by: [facility] Ritu Contact made with patient: Yes - Patient identified by name and . Discussed care with patient Anderson this is Wilton Palma RN and I am calling from Ulises Ramos DO office at [facility]. I am a RN 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 with our [employer] [facility] program. [...] few questions once a week through your [employer] account. It will automatically show up for [...] 11, 2021 1:31 PM documented in [facility] encounter[facility] Evaluation note* Diagnosis Stage 3 chronic kidney disease, unspecified whether stage 3a or 3b CKD (HCC)- Primary documented in this encounter [facility]03-28-[facility]22 History of Present illness Narrative* Sia Hodge, [...] of Care: created on 07/06/21 through 09/03/21 Ralph in home exercise program. Patient will decrease [...] Planned: 16 Planned Treatment Interventions: Neuromuscular re-education (49306);Therapeutic exercise (30769);Manual therapy (18593);Therapeutic activities (06628);Gait Training (88939);Patient/Family/Caregiver Education;E-Stim Unattended (49503) PLAN FOR NEXT VISIT: proximal hip strengthening/LE flexibility/balance and gait training Patient demonstrates good understanding of plan of care and treatment. The above goals and plan of care were discussed and agreed upon by patient/family. SUBJECTIVE: Adina David is a 65 year old male seen today for Deconditioning and left LE Pain. [facility]. We had to stop PT in Apr/May due to significant drop in hemoglobin and then he was admitted to [facility] for COVID and a GI bleed. Spent [...] 43 Sia Hodge PT documented in this [facility] History of Past illness Narrative* Problem Noted Date Resolved Date Closed left subtrochanteric femur fracture 07/2207/27/2020 Facial numbness 03/31/2019 04/03/2019 GI bleed 12/31/2018 01/11/2019 Frequency of urination 03/19/2018 9 AVM (arteriovenous malformation) of colon 01/11/2019 documented as of this encounter (statuses as of 07/09/2021) [address]-2021 History of Past illness Narrative* Problem Noted Date Resolved Date Closed left subtrochanteric femur fracture 07/2207/27/2020 Facial numbness 03/31/2019 04/03/2019 GI bleed 12/31/2018 01/11/2019 Frequency of urination 03/19/2018 9 AVM (arteriovenous malformation) of colon 01/11/2019 documented as of this encounter (statuses as of 07/11/2021) [address]-2021 History of Past illness Narrative* Problem Noted Date Resolved Date Closed left subtrochanteric femur fracture 07/2207/27/2020 Facial numbness 03/31/2019 04/03/2019 GI bleed 12/31/2018 01/11/2019 Frequency of urination 03/19/2018 9 AVM (arteriovenous malformation) of colon 01/11/2019 documented as of this encounter (statuses as of 07/16/2021) [address]-2021 History of Past illness Narrative* Problem Noted Date Resolved Date Closed left subtrochanteric femur fracture 07/2207/27/2020 Facial numbness 03/31/2019 04/03/2019 GI bleed 12/31/2018 01/11/2019 Frequency of urination 03/19/2018 9 AVM (arteriovenous malformation) of colon 01/11/2019 documented as of this encounter (statuses as of 07/18/2021) [address]-2021 History of Past illness Narrative* Problem Noted Date Resolved Date Closed left subtrochanteric femur fracture 07/2207/27/2020 Facial numbness 03/31/2019 04/03/2019 GI bleed 12/31/2018 01/11/2019 Frequency of urination 03/19/2018 9 AVM (arteriovenous malformation) of colon 01/11/2019 documented as of this encounter (statuses as of 07/20/2021) [address]-2021 History of Past illness Narrative* Problem Noted Date Resolved Date Closed left subtrochanteric femur fracture 07/2207/27/2020 Facial numbness 03/31/2019 04/03/2019 GI bleed 12/31/2018 01/11/2019 Frequency of urination 03/19/2018 9 AVM (arteriovenous malformation) of colon 01/11/2019 documented as of this encounter (statuses as of 07/20/2021) [address]-2021 History of Past illness Narrative* Problem Noted Date Resolved Date Closed left subtrochanteric femur fracture 07/2207/27/2020 Facial numbness 03/31/2019 04/03/2019 GI bleed 12/31/2018 01/11/2019 Frequency of urination 03/19/2018 9 AVM (arteriovenous malformation) of colon 01/11/2019 documented as of this encounter (statuses as of 07/25/2021) [address]-2021 History of Past illness Narrative* Problem Noted Date Resolved Date Closed left subtrochanteric femur fracture 07/2207/27/2020 Facial numbness 03/31/2019 04/03/2019 GI bleed 12/31/2018 01/11/2019 Frequency of urination 03/19/2018 9 AVM (arteriovenous malformation) of colon 01/11/2019 documented as of this encounter (statuses as of 07/25/2021) [address]-2021 History of Past illness Narrative* Problem Noted Date Resolved Date Closed left subtrochanteric femur fracture 07/2207/27/2020 Facial numbness 03/31/2019 04/03/2019 GI bleed 12/31/2018 01/11/2019 Frequency of urination 03/19/2018 9 AVM (arteriovenous malformation) of colon 01/11/2019 documented as of this encounter (statuses as of 07/26/2021) [address]-2021 History of Past illness Narrative* Problem Noted Date Resolved Date Closed left subtrochanteric femur fracture 07/2207/27/2020 Facial numbness 03/31/2019 04/03/2019 GI bleed 12/31/2018 01/11/2019 Frequency of urination 03/19/2018 9 AVM (arteriovenous malformation) of colon 01/11/2019 documented as of this encounter (statuses as of 07/26/2021) [address]-2021 History of Past illness Narrative* Problem Noted Date Resolved Date Closed left subtrochanteric femur fracture 07/2207/27/2020 Facial numbness 03/31/2019 04/03/2019 GI bleed 12/31/2018 01/11/2019 Frequency of urination 03/19/2018 9 AVM (arteriovenous malformation) of colon 01/11/2019 documented as of this encounter (statuses as of 07/27/2021) [address]-2021 History of Past illness Narrative* Problem Noted Date Resolved Date Closed left subtrochanteric femur fracture 07/2207/27/2020 Facial numbness 03/31/2019 04/03/2019 GI bleed 12/31/2018 01/11/2019 Frequency of urination 03/19/2018 9 AVM (arteriovenous malformation) of colon 01/11/2019 documented as of this encounter (statuses as of 07/27/2021) [address]-2021 History of Past illness Narrative* Problem Noted Date Resolved Date Closed left subtrochanteric femur fracture 07/2207/27/2020 Facial numbness 03/31/2019 04/03/2019 GI bleed 12/31/2018 01/11/2019 Frequency of urination 03/19/2018 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 documented as of this encounter (statuses as of 07/30/2021) [address]-2021 History of Past illness Narrative* Problem Noted Date Resolved Date Closed left subtrochanteric femur fracture 07/2207/27/2020 Facial numbness 03/31/2019 04/03/2019 GI bleed 12/31/2018 01/11/2019 Frequency of urination 03/19/2018 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 documented as of this encounter (statuses as of 08/01/2021) [address]-2021 History of Past illness Narrative* Problem Noted Date Resolved Date Closed left subtrochanteric femur fracture 07/2207/27/2020 Facial numbness 03/31/2019 04/03/2019 GI bleed 12/31/2018 01/11/2019 Frequency of urination 03/19/2018 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 documented as of this encounter (statuses as of 08/02/2021) [address]-2021 History of Past illness Narrative* Problem Noted Date Resolved Date Closed left subtrochanteric femur fracture 07/2207/27/2020 Facial numbness 03/31/2019 04/03/2019 GI bleed 12/31/2018 01/11/2019 Frequency of urination 03/19/2018 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 documented as of this encounter (statuses as of 08/07/2021) [address]-2021 History of Past illness Narrative* Problem Noted Date Resolved Date Closed left subtrochanteric femur fracture 07/2207/27/2020 Facial numbness 03/31/2019 04/03/2019 GI bleed 12/31/2018 01/11/2019 Frequency of urination 03/19/2018 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 documented as of this encounter (statuses as of 08/09/2021) [address]-2021 History of Past illness Narrative* Problem Noted Date Resolved Date Closed left subtrochanteric femur fracture 07/2207/27/2020 Facial numbness 03/31/2019 04/03/2019 GI bleed 12/31/2018 01/11/2019 Frequency of urination 03/19/2018 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 documented as of this encounter (statuses as of 08/09/2021) [address]-2021 History of Past illness Narrative* Problem Noted Date Resolved Date Closed left subtrochanteric femur fracture 07/2207/27/2020 Facial numbness 03/31/2019 04/03/2019 GI bleed 12/31/2018 01/11/2019 Frequency of urination 03/19/2018 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 documented as of this encounter (statuses as of 08/13/2021) [address]-2021 History of Past illness Narrative* Problem Noted Date Resolved Date Closed left subtrochanteric femur fracture 07/2207/27/2020 Facial numbness 03/31/2019 04/03/2019 GI bleed 12/31/2018 01/11/2019 Frequency of urination 03/19/2018 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 documented as of this encounter (statuses as of 08/14/2021) [address]-2021 History of Past illness Narrative* Problem Noted Date Resolved Date Closed left subtrochanteric femur fracture 07/2207/27/2020 Facial numbness 03/31/2019 04/03/2019 GI bleed 12/31/2018 01/11/2019 Frequency of urination 03/19/2018 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 documented as of this encounter (statuses as of 08/14/2021) [address]-2021 History of Past illness Narrative* Problem Noted Date Resolved Date Closed left subtrochanteric femur fracture 07/2207/27/2020 Facial numbness 03/31/2019 04/03/2019 GI bleed 12/31/2018 01/11/2019 Frequency of urination 03/19/2018 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 documented as of this encounter (statuses as of 08/14/2021) [address]-2021 History of Past illness Narrative* Problem Noted Date Resolved Date Closed left subtrochanteric femur fracture 07/2207/27/2020 Facial numbness 03/31/2019 04/03/2019 GI bleed 12/31/2018 01/11/2019 Frequency of urination 03/19/2018 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 documented as of this encounter (statuses as of 08/15/2021) [address]-2021 History of Past illness Narrative* Problem Noted Date Resolved Date Closed left subtrochanteric femur fracture 07/2207/27/2020 Facial numbness 03/31/2019 04/03/2019 GI bleed 12/31/2018 01/11/2019 Frequency of urination 03/19/2018 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 documented as of this encounter (statuses as of 08/15/2021) [address]-2021 History of Past illness Narrative* Problem Noted Date Resolved Date Closed left subtrochanteric femur fracture 07/2207/27/2020 Facial numbness 03/31/2019 04/03/2019 GI bleed 12/31/2018 01/11/2019 Frequency of urination 03/19/2018 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 documented as of this encounter (statuses as of 08/21/2021) [address]-2021 History of Past illness Narrative* Problem Noted Date Resolved Date Closed left subtrochanteric femur fracture 07/2207/27/2020 Facial numbness 03/31/2019 04/03/2019 GI bleed 12/31/2018 01/11/2019 Frequency of urination 03/19/2018 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 documented as of this encounter (statuses as of 08/27/2021) [address]-2021 History of Past illness Narrative* Problem Noted Date Resolved Date Closed left subtrochanteric femur fracture 07/2207/27/2020 Facial numbness 03/31/2019 04/03/2019 GI bleed 12/31/2018 01/11/2019 Frequency of urination 03/19/2018 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 documented as of this encounter (statuses as of 08/29/2021) [address]-2021 History of Past illness Narrative* Problem Noted Date Resolved Date Closed left subtrochanteric femur fracture 07/2207/27/2020 Facial numbness 03/31/2019 04/03/2019 GI bleed 12/31/2018 01/11/2019 Frequency of urination 03/19/2018 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 documented as of this encounter (statuses as of 08/30/2021) [address]-2021 History of Past illness Narrative* Problem Noted Date Resolved Date Closed left subtrochanteric femur fracture 07/2207/27/2020 Facial numbness 03/31/2019 04/03/2019 GI bleed 12/31/2018 01/11/2019 Frequency of urination 03/19/2018 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 documented as of this encounter (statuses as of 09/05/2021) [address]-2021 History of Past illness Narrative* Problem Noted Date Resolved Date Closed left subtrochanteric femur fracture 07/2207/27/2020 Facial numbness 03/31/2019 04/03/2019 GI bleed 12/31/2018 01/11/2019 Frequency of urination 03/19/2018 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 documented as of this encounter (statuses as of 09/05/2021) [address]-2021 History of Past illness Narrative* Problem Noted Date Resolved Date Closed left subtrochanteric femur fracture 07/2207/27/2020 Facial numbness 03/31/2019 04/03/2019 GI bleed 12/31/2018 01/11/2019 Frequency of urination 03/19/2018 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/2019 documented as of this encounter (statuses as of 09/11/2021) [address]-2021 History of Past illness Narrative* Problem Noted Date Resolved Date Closed left subtrochanteric femur fracture 07/2207/27/2020 Facial numbness 03/31/2019 04/03/2019 GI bleed 12/31/2018 01/11/2019 Frequency of urination 03/19/2018 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 documented as of this encounter (statuses as of 09/12/2021) [address]-2021 History of Past illness Narrative* Problem Noted Date Resolved Date Closed left subtrochanteric femur fracture 07/2207/27/2020 Facial numbness 03/31/2019 04/03/2019 GI bleed 12/31/2018 01/11/2019 Frequency of urination 03/19/2018 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 documented as of this encounter (statuses as of 09/13/2021) [address]-2021 History of Past illness Narrative* Problem Noted Date Resolved Date Closed left subtrochanteric femur fracture 07/2207/27/2020 Facial numbness 03/31/2019 04/03/2019 GI bleed 12/31/2018 01/11/2019 Frequency of urination 03/19/2018 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 documented as of this encounter (statuses as of 09/13/2021) [address]-2021 History of Past illness Narrative* Problem Noted Date Resolved Date Closed left subtrochanteric femur fracture 07/2207/27/2020 Facial numbness 03/31/2019 04/03/2019 GI bleed 12/31/2018 01/11/2019 Frequency of urination 03/19/2018 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 documented as of this encounter (statuses as of 09/19/2021) [address]-2021 History of Past illness Narrative* Problem Noted Date Resolved Date Closed left subtrochanteric femur fracture 07/2207/27/2020 Facial numbness 03/31/2019 04/03/2019 GI bleed 12/31/2018 01/11/2019 Frequency of urination 03/19/2018 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 documented as of this encounter (statuses as of 09/24/2021) [address]-2021 History of Past illness Narrative* Problem Noted Date Resolved Date Closed left subtrochanteric femur fracture 07/2207/27/2020 Facial numbness 03/31/2019 04/03/2019 GI bleed 12/31/2018 01/11/2019 Frequency of urination 03/19/2018 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 documented as of this encounter (statuses as of 09/26/2021) [address]-2021 History of Past illness Narrative* Problem Noted Date Resolved Date Closed left subtrochanteric femur fracture 07/2207/27/2020 Facial numbness 03/31/2019 04/03/2019 GI bleed 12/31/2018 01/11/2019 Frequency of urination 03/19/2018 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 documented as of this encounter (statuses as of 09/26/2021) [address]-2021 History of Past illness Narrative* Problem Noted Date Resolved Date Closed left subtrochanteric femur fracture 07/2207/27/2020 Facial numbness 03/31/2019 04/03/2019 GI bleed 12/31/2018 01/11/2019 Frequency of urination 03/19/2018 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 documented as of this encounter (statuses as of 09/28/2021) [address]-2021 History of Past illness Narrative* Problem Noted Date Resolved Date Closed left subtrochanteric femur fracture 07/2207/27/2020 Facial numbness 03/31/2019 04/03/2019 GI bleed 12/31/2018 01/11/2019 Frequency of urination 03/19/2018 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 documented as of this encounter (statuses as of 09/28/2021) [address]-2021 History of Past illness Narrative* Problem Noted Date Resolved Date Closed left subtrochanteric femur fracture 07/2207/27/2020 Facial numbness 03/31/2019 04/03/2019 GI bleed 12/31/2018 01/11/2019 Frequency of urination 03/19/2018 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 documented as of this encounter (statuses as of 10/02/2021) [address]-2021 History of Past illness Narrative* Problem Noted Date Resolved Date Closed left subtrochanteric femur fracture 07/2207/27/2020 Facial numbness 03/31/2019 04/03/2019 GI bleed 12/31/2018 01/11/2019 Frequency of urination 03/19/2018 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 documented as of this encounter (statuses as of 10/03/2021) [address]-2021 History of Past illness Narrative* Problem Noted Date Resolved Date Closed left subtrochanteric femur fracture 07/2207/27/2020 Facial numbness 03/31/2019 04/03/2019 GI bleed 12/31/2018 01/11/2019 Frequency of urination 03/19/2018 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 documented as of this encounter (statuses as of 10/04/2021) [address]-2021 History of Past illness Narrative* Problem Noted Date Resolved Date Closed left subtrochanteric femur fracture 07/2207/27/2020 Facial numbness 03/31/2019 04/03/2019 GI bleed 12/31/2018 01/11/2019 Frequency of urination 03/19/2018 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 documented as of this encounter (statuses as of 10/09/2021) [address]-2021 History of Past illness Narrative* Problem Noted Date Resolved Date Closed left subtrochanteric femur fracture 07/2207/27/2020 Facial numbness 03/31/2019 04/03/2019 GI bleed 12/31/2018 01/11/2019 Frequency of urination 03/19/2018 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 documented as of this encounter (statuses as of 10/10/2021) [address]-2021 History of Past illness Narrative* Problem Noted Date Resolved Date Closed left subtrochanteric femur fracture 07/2207/27/2020 Facial numbness 03/31/2019 04/03/2019 GI bleed 12/31/2018 01/11/2019 Frequency of urination 03/19/2018 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/11/2019 documented as of this encounter (statuses as of 10/11/2021) [address]-2021 History of Past illness Narrative* Problem Noted Date Resolved Date Closed left subtrochanteric femur fracture 07/2207/27/2020 Facial numbness 03/31/2019 04/03/2019 GI bleed 12/31/2018 01/11/2019 Frequency of urination 03/19/2018 9 AVM (arteriovenous malformation) of colon 01/11/2019 documented as of this encounter (statuses as of 10/17/2021) [address]21 History of Past illness Narrative* Problem Noted Date Resolved Date Closed left subtrochanteric femur fracture 07/2207/27/2020 Facial numbness 03/31/2019 04/03/2019 GI bleed 12/31/2018 01/11/2019 Frequency of urination 03/19/2018 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 documented as of this encounter (statuses as of 10/17/2021) [address]-2021 History of Past illness Narrative* Problem Noted Date Resolved Date Closed left subtrochanteric femur fracture 07/2207/27/2020 Facial numbness 03/31/2019 04/03/2019 GI bleed 12/31/2018 01/11/2019 Frequency of urination 03/19/2018 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 documented as of this encounter (statuses as of 10/18/2021) [address]-2021 History of Past illness Narrative* Problem Noted Date Resolved Date Closed left subtrochanteric femur fracture 07/2207/27/2020 Facial numbness 03/31/2019 04/03/2019 GI bleed 12/31/2018 01/11/2019 Frequency of urination 03/19/2018 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 documented as of this encounter (statuses as of 10/18/2021) [address]-2021 History of Past illness Narrative* Problem Noted Date Resolved Date Closed left subtrochanteric femur fracture 07/2207/27/2020 Facial numbness 03/31/2019 04/03/2019 GI bleed 12/31/2018 01/11/2019 Frequency of urination 03/19/2018 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 documented as of this encounter (statuses as of 10/22/2021) [address]-2021 History of Past illness Narrative* Problem Noted Date Resolved Date Closed left subtrochanteric femur fracture 07/2207/27/2020 Facial numbness 03/31/2019 04/03/2019 GI bleed 12/31/2018 01/11/2019 Frequency of urination 03/19/2018 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 documented as of this encounter (statuses as of 10/22/2021) [address]-2021 History of Past illness Narrative* Problem Noted Date Resolved Date Closed left subtrochanteric femur fracture 07/2207/27/2020 Facial numbness 03/31/2019 04/03/2019 GI bleed 12/31/2018 01/11/2019 Frequency of urination 03/19/2018 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/11/2019 documented as of this encounter (statuses as of 10/22/2021) [address]21 History of Past illness Narrative* Problem Noted Date Resolved Date Closed left subtrochanteric femur fracture 07/2207/27/2020 Facial numbness 03/31/2019 04/03/2019 GI bleed 12/31/2018 01/11/2019 Frequency of urination 03/19/2018 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 documented as of this encounter (statuses as of 10/24/2021) [address]21 History of Past illness Narrative* Problem Noted Date Resolved Date Closed left subtrochanteric femur fracture 07/2207/27/2020 Facial numbness 03/31/2019 04/03/2019 GI bleed 12/31/2018 01/11/2019 Frequency of urination 03/19/2018 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 documented as of this encounter (statuses as of 10/24/2021) [address]-2021 History of Past illness Narrative* Problem Noted Date Resolved Date Closed left subtrochanteric femur fracture 07/2207/27/2020 Facial numbness 03/31/2019 04/03/2019 GI bleed 12/31/2018 01/11/2019 Frequency of urination 03/19/2018 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 documented as of this encounter (statuses as of 10/25/2021) [address]21 History of Past illness Narrative* Problem Noted Date Resolved Date Closed left subtrochanteric femur fracture 07/2207/27/2020 Facial numbness 03/31/2019 04/03/2019 GI bleed 12/31/2018 01/11/2019 Frequency of urination 03/19/2018 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 documented as of this encounter (statuses as of 10/25/2021) [address]21 History of Past illness Narrative* Problem Noted Date Resolved Date Closed left subtrochanteric femur fracture 07/2207/27/2020 Facial numbness 03/31/2019 04/03/2019 GI bleed 12/31/2018 01/11/2019 Frequency of urination 03/19/2018 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 documented as of this encounter (statuses as of 2021) [address]-2021 History of Past illness Narrative* Problem Noted Date Resolved Date Closed left subtrochanteric femur fracture 07/2207/27/2020 Facial numbness 03/31/2019 04/03/2019 GI bleed 12/31/2018 01/11/2019 Frequency of urination 03/19/2018 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 documented as of this encounter (statuses as of 2021) [address]-2021 History of Past illness Narrative* Problem Noted Date Resolved Date Closed left subtrochanteric femur fracture 07/2207/27/2020 Facial numbness 03/31/2019 04/03/2019 GI bleed 12/31/2018 01/11/2019 Frequency of urination 03/19/2018 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 documented as of this encounter (statuses as of 2021) [address]-2021 History of Past illness Narrative* Problem Noted Date Resolved Date Closed left subtrochanteric femur fracture 07/2207/27/2020 Facial numbness 03/31/2019 04/03/2019 GI bleed 12/31/2018 01/11/2019 Frequency of urination 03/19/2018 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/11/2019 documented as of this encounter (statuses as of 10/31/2021) [address]-2021 History of Past illness Narrative* Problem Noted Date Resolved Date Closed left subtrochanteric femur fracture 07/2207/27/2020 Facial numbness 03/31/2019 04/03/2019 GI bleed 12/31/2018 01/11/2019 Frequency of urination 03/19/2018 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 documented as of this encounter (statuses as of 11/07/2021) [address]-2021 History of Past illness Narrative* Problem Noted Date Resolved Date Closed left subtrochanteric femur fracture 07/2207/27/2020 Facial numbness 03/31/2019 04/03/2019 GI bleed 12/31/2018 01/11/2019 Frequency of urination 03/19/2018 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 documented as of this encounter (statuses as of 11/12/2021) [address]-2021 History of Past illness Narrative* Problem Noted Date Resolved Date Closed left subtrochanteric femur fracture 07/2207/27/2020 Facial numbness 03/31/2019 04/03/2019 GI bleed 12/31/2018 01/11/2019 Frequency of urination 03/19/2018 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 documented as of this encounter (statuses as of 11/15/2021) [address]-2021 History of Past illness Narrative* Problem Noted Date Resolved Date Closed left subtrochanteric femur fracture 07/2207/27/2020 Facial numbness 03/31/2019 04/03/2019 GI bleed 12/31/2018 01/11/2019 Frequency of urination 03/19/2018 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 documented as of this encounter (statuses as of 11/19/2021) [address]-2021 History of Past illness Narrative* Problem Noted Date Resolved Date Closed left subtrochanteric femur fracture 07/2207/27/2020 Facial numbness 03/31/2019 04/03/2019 GI bleed 12/31/2018 01/11/2019 Frequency of urination 03/19/2018 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 documented as of this encounter (statuses as of 11/19/2021) [address]-2021 History of Past illness Narrative* Problem Noted Date Resolved Date Closed left subtrochanteric femur fracture 07/2207/27/2020 Facial numbness 03/31/2019 04/03/2019 GI bleed 12/31/2018 01/11/2019 Frequency of urination 03/19/2018 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/11/2019 documented as of this encounter (statuses as of 11/22/2021) [address]-2021 History of Past illness Narrative* Problem Noted Date Resolved Date Closed left subtrochanteric femur fracture 07/2207/27/2020 Facial numbness 03/31/2019 04/03/2019 GI bleed 12/31/2018 01/11/2019 Frequency of urination 03/19/2018 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/11/2019 documented as of this encounter (statuses as of 12/01/2021) [address]-2021 History of Past illness Narrative* Problem Noted Date Resolved Date Closed left subtrochanteric femur fracture 07/2207/27/2020 Facial numbness 03/31/2019 04/03/2019 GI bleed 12/31/2018 01/11/2019 Frequency of urination 03/19/2018 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 documented as of this encounter (statuses as of 12/03/2021) [address]-2021 History of Past illness Narrative* Problem Noted Date Resolved Date Closed left subtrochanteric femur fracture 07/2207/27/2020 Facial numbness 03/31/2019 04/03/2019 GI bleed 12/31/2018 01/11/2019 Frequency of urination 03/19/2018 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/11/2019 documented as of this encounter (statuses as of 12/04/2021) [address]-2021 History of Past illness Narrative* Problem Noted Date Resolved Date Closed left subtrochanteric femur fracture 07/2207/27/2020 Facial numbness 03/31/2019 04/03/2019 GI bleed 12/31/2018 01/11/2019 Frequency of urination 03/19/2018 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/11/2019 documented as of this encounter (statuses as of 12/07/2021) [address]-2021 History of Past illness Narrative* Problem Noted Date Resolved Date Closed left subtrochanteric femur fracture 07/2207/27/2020 Facial numbness 03/31/2019 04/03/2019 GI bleed 12/31/2018 01/11/2019 Frequency of urination 03/19/2018 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/11/2019 documented as of this encounter (statuses as of 12/12/2021) [address]-2021 History of Past illness Narrative* Problem Noted Date Resolved Date Closed left subtrochanteric femur fracture 07/2207/27/2020 Facial numbness 03/31/2019 04/03/2019 GI bleed 12/31/2018 01/11/2019 Frequency of urination 03/19/2018 9 AVM (arteriovenous malformation) of colon 01/11/2019 documented as of this encounter (statuses as of 12/18/2021) [address]-2021 History of Past illness Narrative* Problem Noted Date Resolved Date Closed left subtrochanteric femur fracture 07/2207/27/2020 Facial numbness 03/31/2019 04/03/2019 GI bleed 12/31/2018 01/11/2019 Frequency of urination 03/19/2018 9 AVM (arteriovenous malformation) of colon 01/11/2019 documented as of this encounter (statuses as of 12/19/2021) [address]-2021 History of Past illness Narrative* Problem Noted Date Resolved Date Closed left subtrochanteric femur fracture 07/2207/27/2020 Facial numbness 03/31/2019 04/03/2019 GI bleed 12/31/2018 01/11/2019 Frequency of urination 03/19/2018 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/11/2019 documented as of this encounter (statuses as of 12/27/2021) [address]-2021 History of Past illness Narrative* Problem Noted Date Resolved Date Closed left subtrochanteric femur fracture 07/2207/27/2020 Facial numbness 03/31/2019 04/03/2019 GI bleed 12/31/2018 01/11/2019 Frequency of urination 03/19/2018 9 AVM (arteriovenous malformation) of colon 01/11/2019 documented as of this encounter (statuses as of 01/16/2022) [address]-2021 History of Past illness Narrative* Problem Noted Date Resolved Date Closed left subtrochanteric femur fracture 07/2207/27/2020 Facial numbness 03/31/2019 04/03/2019 GI bleed 12/31/2018 01/11/2019 Frequency of urination 03/19/2018 9 AVM (arteriovenous malformation) of colon 01/11/2019 documented as of this encounter (statuses as of 01/17/2022) [address]-2021 History of Past illness Narrative* Problem Noted Date Resolved Date Closed left subtrochanteric femur fracture 07/2207/27/2020 Facial numbness 03/31/2019 04/03/2019 GI bleed 12/31/2018 01/11/2019 Frequency of urination 03/19/2018 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/11/2019 documented as of this encounter (statuses as of 01/17/2022) [address]-2021 History of Past illness Narrative* Problem Noted Date Resolved Date Closed left subtrochanteric femur fracture 07/2207/27/2020 Facial numbness 03/31/2019 04/03/2019 GI bleed 12/31/2018 01/11/2019 Frequency of urination 03/19/2018 9 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 documented as of this encounter (statuses as of 01/21/2022) [address]-2021 History of Past illness Narrative* Problem Noted Date Resolved Date Closed left subtrochanteric femur fracture 07/2207/27/2020 Facial numbness 03/31/2019 04/03/2019 GI bleed 12/31/2018 01/11/2019 Frequency of urination 03/19/2018 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 documented as of this encounter (statuses as of 01/24/2022) [address]-2021 History of Past illness Narrative* Problem Noted Date Resolved Date Closed left subtrochanteric femur fracture 07/2207/27/2020 Facial numbness 03/31/2019 04/03/2019 GI bleed 12/31/2018 01/11/2019 Frequency of urination 03/19/2018 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 documented as of this encounter (statuses as of 02/06/2022) [address]-2021 History of Past illness Narrative* Problem Noted Date Resolved Date Closed left subtrochanteric femur fracture 07/2207/27/2020 Facial numbness 03/31/2019 04/03/2019 GI bleed 12/31/2018 01/11/2019 Frequency of urination 03/19/2018 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 documented as of this encounter (statuses as of 02/14/2022) [address]-2021 History of Past illness Narrative* Problem Noted Date Resolved Date Closed left subtrochanteric femur fracture 07/2207/27/2020 Facial numbness 03/31/2019 04/03/2019 GI bleed 12/31/2018 01/11/2019 Frequency of urination 03/19/2018 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 documented as of this encounter (statuses as of 02/15/2022) [address]-2021 History of Past illness Narrative* Problem Noted Date Resolved Date Closed left subtrochanteric femur fracture 07/2207/27/2020 Facial numbness 03/31/2019 04/03/2019 GI bleed 12/31/2018 01/11/2019 Frequency of urination 03/19/2018 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 documented as of this encounter (statuses as of 02/19/2022) [address]-2021 History of Past illness Narrative* Problem Noted Date Resolved Date Closed left subtrochanteric femur fracture 07/2207/27/2020 Facial numbness 03/31/2019 04/03/2019 GI bleed 12/31/2018 01/11/2019 Frequency of urination 03/19/2018 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 documented as of this encounter (statuses as of 02/20/2022) [address]-2021 History of Past illness Narrative* Problem Noted Date Resolved Date Closed left subtrochanteric femur fracture 07/2207/27/2020 Facial numbness 03/31/2019 04/03/2019 GI bleed 12/31/2018 01/11/2019 Frequency of urination 03/19/2018 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 documented as of this encounter (statuses as of 02/26/2022) [address]-2021 History of Past illness Narrative* Problem Noted Date Resolved Date Closed left subtrochanteric femur fracture 07/2207/27/2020 Facial numbness 03/31/2019 04/03/2019 GI bleed 12/31/2018 01/11/2019 Frequency of urination 03/19/2018 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 documented as of this encounter (statuses as of 03/04/2022) [place] [id number] History of Past illness Narrative* Problem Noted Date Resolved Date Closed left subtrochanteric femur fracture 07/2207/27/2020 Facial numbness 03/31/2019 04/03/2019 GI bleed 12/31/2018 01/11/2019 Frequency of urination 03/19/2018 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 documented as of this encounter (statuses as of 03/13/2022) [address]-2021 History of Past illness Narrative* Problem Noted Date Resolved Date Closed left subtrochanteric femur fracture 07/2207/27/2020 Facial numbness 03/31/2019 04/03/2019 GI bleed 12/31/2018 01/11/2019 Frequency of urination 03/19/2018 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 documented as of this encounter (statuses as of 03/18/2022) [address]-2021 History of Past illness Narrative* Problem Noted Date Resolved Date Closed left subtrochanteric femur fracture 07/2207/27/2020 Facial numbness 03/31/2019 04/03/2019 GI bleed 12/31/2018 01/11/2019 Frequency of urination 03/19/2018 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 documented as of this encounter (statuses as of 03/18/2022) [address]-2021 History of Past illness Narrative* Problem Noted Date Resolved Date Closed left subtrochanteric femur fracture 07/2207/27/2020 Facial numbness 03/31/2019 04/03/2019 GI bleed 12/31/2018 01/11/2019 Frequency of urination 03/19/2018 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 documented as of this encounter (statuses as of 03/18/2022) [address]-2021 History of Past illness Narrative* Problem Noted Date Resolved Date Closed left subtrochanteric femur fracture 07/2207/27/2020 Facial numbness 03/31/2019 04/03/2019 GI bleed 12/31/2018 01/11/2019 Frequency of urination 03/19/2018 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 documented as of this encounter (statuses as of 03/21/2022) [address]-2021 History of Past illness Narrative* Problem Noted Date Resolved Date Closed left subtrochanteric femur fracture 07/2207/27/2020 Facial numbness 03/31/2019 04/03/2019 GI bleed 12/31/2018 01/11/2019 Frequency of urination 03/19/2018 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 documented as of this encounter (statuses as of 03/21/2022) [address]-2021 History of Past illness Narrative* Problem Noted Date Resolved Date Closed left subtrochanteric femur fracture 07/2207/27/2020 Facial numbness 03/31/2019 04/03/2019 GI bleed 12/31/2018 01/11/2019 Frequency of urination 03/19/2018 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 documented as of this encounter (statuses as of 03/22/2022) [address]-2021 History of Past illness Narrative* Problem Noted Date Resolved Date Closed left subtrochanteric femur fracture 07/2207/27/2020 Facial numbness 03/31/2019 04/03/2019 GI bleed 12/31/2018 01/11/2019 Frequency of urination 03/19/2018 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 documented as of this encounter (statuses as of 03/25/2022) [address]-2021 History of Past illness Narrative* Problem Noted Date Resolved Date Closed left subtrochanteric femur fracture 07/2207/27/2020 Facial numbness 03/31/2019 04/03/2019 GI bleed 12/31/2018 01/11/2019 Frequency of urination 03/19/2018 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 documented as of this encounter (statuses as of 03/27/2022) [address]-2021 History of Past illness Narrative* Problem Noted Date Resolved Date Closed left subtrochanteric femur fracture 07/2207/27/2020 Facial numbness 03/31/2019 04/03/2019 GI bleed 12/31/2018 01/11/2019 Frequency of urination 03/19/2018 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 documented as of this encounter (statuses as of 04/03/2022) [address]-2021 History of Past illness Narrative* Problem Noted Date Resolved Date Closed left subtrochanteric femur fracture 07/2207/27/2020 Facial numbness 03/31/2019 04/03/2019 GI bleed 12/31/2018 01/11/2019 Frequency of urination 03/19/2018 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 documented as of this encounter (statuses as of 04/03/2022) [address]-2021 History of Past illness Narrative* Problem Noted Date Resolved Date Closed left subtrochanteric femur fracture 07/2207/27/2020 Facial numbness 03/31/2019 04/03/2019 GI bleed 12/31/2018 01/11/2019 Frequency of urination 03/19/2018 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 documented as of this encounter (statuses as of 04/05/2022) [address]-2021 History of Past illness Narrative* Problem Noted Date Resolved Date Closed left subtrochanteric femur fracture 07/2207/27/2020 Facial numbness 03/31/2019 04/03/2019 GI bleed 12/31/2018 01/11/2019 Frequency of urination 03/19/2018 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 documented as of this encounter (statuses as of 04/06/2022) [address]-2021 History of Past illness Narrative* Problem Noted Date Resolved Date Closed left subtrochanteric femur fracture 07/2207/27/2020 Facial numbness 03/31/2019 04/03/2019 GI bleed 12/31/2018 01/11/2019 Frequency of urination 03/19/2018 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 documented as of this encounter (statuses as of 04/19/2022) [address]-2021 History of Past illness Narrative* Problem Noted Date Resolved Date Closed left subtrochanteric femur fracture 07/2207/27/2020 Facial numbness 03/31/2019 04/03/2019 GI bleed 12/31/2018 01/11/2019 Frequency of urination 03/19/2018 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 documented as of this encounter (statuses as of 04/19/2022) [address]-2021 History of Past illness Narrative* Problem Noted Date Resolved Date Closed left subtrochanteric femur fracture 07/2207/27/2020 Facial numbness 03/31/2019 04/03/2019 GI bleed 12/31/2018 01/11/2019 Frequency of urination 03/19/2018 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 documented as of this encounter (statuses as of 04/19/2022) [address]-2021 History of Past illness Narrative* Problem Noted Date Resolved Date Closed left subtrochanteric femur fracture 07/2207/27/2020 Facial numbness 03/31/2019 04/03/2019 GI bleed 12/31/2018 01/11/2019 Frequency of urination 03/19/2018 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 documented as of this encounter (statuses as of 04/20/2022) [address]21 History of Past illness Narrative* Problem Noted Date Resolved Date Closed left subtrochanteric femur fracture 07/2207/27/2020 Facial numbness 03/31/2019 04/03/2019 GI bleed 12/31/2018 01/11/2019 Frequency of urination 03/19/2018 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 documented as of this encounter (statuses as of 04/23/2022) [address]21 History of Past illness Narrative* Problem Noted Date Resolved Date Closed left subtrochanteric femur fracture 07/2207/27/2020 Facial numbness 03/31/2019 04/03/2019 GI bleed 12/31/2018 01/11/2019 Frequency of urination 03/19/2018 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 documented as of this encounter (statuses as of 04/25/2022) [address]-2021 History of Past illness Narrative* Problem Noted Date Resolved Date Closed left subtrochanteric femur fracture 07/2207/27/2020 Facial numbness 03/31/2019 04/03/2019 GI bleed 12/31/2018 01/11/2019 Frequency of urination 03/19/2018 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 documented as of this encounter (statuses as of 04/30/2022) [address]-2021 History of Past illness Narrative* Problem Noted Date Resolved Date Closed left subtrochanteric femur fracture 07/2207/27/2020 Facial numbness 03/31/2019 04/03/2019 GI bleed 12/31/2018 01/11/2019 Frequency of urination 03/19/2018 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 documented as of this encounter (statuses as of 05/15/2022) [address]21 History of Past illness Narrative* Problem Noted Date Resolved Date Closed left subtrochanteric femur fracture 07/2207/27/2020 Facial numbness 03/31/2019 04/03/2019 GI bleed 12/31/2018 01/11/2019 Frequency of urination 03/19/2018 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 documented as of this encounter (statuses as of 05/22/2022) [address]-2021 History of Past illness Narrative* Problem Noted Date Resolved Date Closed left subtrochanteric femur fracture 07/2207/27/2020 Facial numbness 03/31/2019 04/03/2019 GI bleed 12/31/2018 01/11/2019 Frequency of urination 03/19/2018 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 documented as of this encounter (statuses as of 05/23/2022) [address]21 History of Past illness Narrative* Problem Noted Date Resolved Date Closed left subtrochanteric femur fracture 07/2207/27/2020 Facial numbness 03/31/2019 04/03/2019 GI bleed 12/31/2018 01/11/2019 Frequency of urination 03/19/2018 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 documented as of this encounter (statuses as of 05/31/2022) [address]21 History of Past illness Narrative* Problem Noted Date Resolved Date Closed left subtrochanteric femur fracture 07/2207/27/2020 Facial numbness 03/31/2019 04/03/2019 GI bleed 12/31/2018 01/11/2019 Frequency of urination 03/19/2018 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 documented as of this encounter (statuses as of 06/04/2022) [address]21 History of Past illness Narrative* Problem Noted Date Resolved Date Closed left subtrochanteric femur fracture 07/2207/27/2020 Facial numbness 03/31/2019 04/03/2019 GI bleed 12/31/2018 01/11/2019 Frequency of urination 03/19/2018 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 documented as of this encounter (statuses as of 06/05/2022) [address]21 History of Past illness Narrative* Problem Noted Date Resolved Date Closed left subtrochanteric femur fracture 07/2207/27/2020 Facial numbness 03/31/2019 04/03/2019 GI bleed 12/31/2018 01/11/2019 Frequency of urination 03/19/2018 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 documented as of this encounter (statuses as of 06/07/2022) [address]21 History of Past illness Narrative* Problem Noted Date Resolved Date Closed left subtrochanteric femur fracture 07/2207/27/2020 Facial numbness 03/31/2019 04/03/2019 GI bleed 12/31/2018 01/11/2019 Frequency of urination 03/19/2018 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 documented as of this encounter (statuses as of 06/10/2022) [address]-2021 History of Past illness Narrative* Problem Noted Date Resolved Date Closed left subtrochanteric femur fracture 07/2207/27/2020 Facial numbness 03/31/2019 04/03/2019 GI bleed 12/31/2018 01/11/2019 Frequency of urination 03/19/2018 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 documented as of this encounter (statuses as of 06/12/2022) [address]21 History of Past illness Narrative* Problem Noted Date Resolved Date Closed left subtrochanteric femur fracture 07/2207/27/2020 Facial numbness 03/31/2019 04/03/2019 GI bleed 12/31/2018 01/11/2019 Frequency of urination 03/19/2018 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 documented as of this encounter (statuses as of 06/14/2022) [address]21 History of Past illness Narrative* Problem Noted Date Resolved Date Closed left subtrochanteric femur fracture 07/2207/27/2020 Facial numbness 03/31/2019 04/03/2019 GI bleed 12/31/2018 01/11/2019 Frequency of urination 03/19/2018 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 documented as of this encounter (statuses as of 06/14/2022) [place] [address] History of Past illness Narrative* Problem Noted Date Resolved Date Closed left subtrochanteric femur fracture 07/2207/27/2020 Facial numbness 03/31/2019 04/03/2019 GI bleed 12/31/2018 01/11/2019 Frequency of urination 03/19/2018 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 documented as of this encounter (statuses as of 06/19/2022) [address]21 History of Past illness Narrative* Problem Noted Date Resolved Date Closed left subtrochanteric femur fracture 07/2207/27/2020 Facial numbness 03/31/2019 04/03/2019 GI bleed 12/31/2018 01/11/2019 Frequency of urination 03/19/2018 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 documented as of this encounter (statuses as of 06/21/2022) [address]21 History of Past illness Narrative* Problem Noted Date Resolved Date Closed left subtrochanteric femur fracture 07/2207/27/2020 Facial numbness 03/31/2019 04/03/2019 GI bleed 12/31/2018 01/11/2019 Frequency of urination 03/19/2018 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 documented as of this encounter (statuses as of 06/24/2022) [address]21 History of Past illness Narrative* Problem Noted Date Resolved Date Closed left subtrochanteric femur fracture 07/2207/27/2020 Facial numbness 03/31/2019 04/03/2019 GI bleed 12/31/2018 01/11/2019 Frequency of urination 03/19/2018 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 documented as of this encounter (statuses as of 06/25/2022) [address]21 History of Past illness Narrative* Problem Noted Date Resolved Date Closed left subtrochanteric femur fracture 07/2207/27/2020 Facial numbness 03/31/2019 04/03/2019 GI bleed 12/31/2018 01/11/2019 Frequency of urination 03/19/2018 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 documented as of this encounter (statuses as of 06/27/2022) [address]21 History of Past illness Narrative* Problem Noted Date Resolved Date Closed left subtrochanteric femur fracture 07/2207/27/2020 Facial numbness 03/31/2019 04/03/2019 GI bleed 12/31/2018 01/11/2019 Frequency of urination 03/19/2018 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 documented as of this encounter (statuses as of 06/28/2022) [address]21 History of Past illness Narrative* Problem Noted Date Resolved Date Closed left subtrochanteric femur fracture 07/2207/27/2020 Facial numbness 03/31/2019 04/03/2019 GI bleed 12/31/2018 01/11/2019 Frequency of urination 03/19/2018 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 documented as of this encounter (statuses as of 07/01/2022) [address]21 History of Past illness Narrative* Problem Noted Date Resolved Date Closed left subtrochanteric femur fracture 07/2207/27/2020 Facial numbness 03/31/2019 04/03/2019 GI bleed 12/31/2018 01/11/2019 Frequency of urination 03/19/2018 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 documented as of this encounter (statuses as of 07/02/2022) [address]10-2021 History of Past illness Narrative* Problem Noted Date Resolved Date Closed left subtrochanteric femur fracture 07/2207/27/2020 Facial numbness 03/31/2019 04/03/2019 GI bleed 12/31/2018 01/11/2019 Frequency of urination 03/19/2018 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 documented as of this encounter (statuses as of 07/04/2022) [address]21 History of Past illness Narrative* Problem Noted Date Resolved Date Closed left subtrochanteric femur fracture 07/2207/27/2020 Facial numbness 03/31/2019 04/03/2019 GI bleed 12/31/2018 01/11/2019 Frequency of urination 03/19/2018 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 documented as of this encounter (statuses as of 07/05/2022) [address]-2021 History of Past illness Narrative* Problem Noted Date Resolved Date Closed left subtrochanteric femur fracture 07/2207/27/2020 Facial numbness 03/31/2019 04/03/2019 GI bleed 12/31/2018 01/11/2019 Frequency of urination 03/19/2018 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 documented as of this encounter (statuses as of 07/11/2022) [address]-2021 History of Past illness Narrative* Problem Noted Date Resolved Date Closed left subtrochanteric femur fracture 07/2207/27/2020 Facial numbness 03/31/2019 04/03/2019 GI bleed 12/31/2018 01/11/2019 Frequency of urination 03/19/2018 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 documented as of this encounter (statuses as of 07/11/2022) [address]-2021 History of Past illness Narrative* Problem Noted Date Resolved Date Closed left subtrochanteric femur fracture 07/2207/27/2020 Facial numbness 03/31/2019 04/03/2019 GI bleed 12/31/2018 01/11/2019 Frequency of urination 03/19/2018 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 documented as of this encounter (statuses as of 07/15/2022) [address]-2021 History of Past illness Narrative* Problem Noted Date Resolved Date Closed left subtrochanteric femur fracture 07/2207/27/2020 Facial numbness 03/31/2019 04/03/2019 GI bleed 12/31/2018 01/11/2019 Frequency of urination 03/19/2018 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 documented as of this encounter (statuses as of 07/15/2022) [address]-2021 History of Past illness Narrative* Problem Noted Date Resolved Date Closed left subtrochanteric femur fracture 07/2207/27/2020 Facial numbness 03/31/2019 04/03/2019 GI bleed 12/31/2018 01/11/2019 Frequency of urination 03/19/2018 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 documented as of this encounter (statuses as of 07/18/2022) [address]-2021 History of Past illness Narrative* Problem Noted Date Resolved Date Closed left subtrochanteric femur fracture 07/2207/27/2020 Facial numbness 03/31/2019 04/03/2019 GI bleed 12/31/2018 01/11/2019 Frequency of urination 03/19/2018 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 documented as of this encounter (statuses as of 07/19/2022) [address]-2021 History of Past illness Narrative* Problem Noted Date Resolved Date Closed left subtrochanteric femur fracture 07/2207/27/2020 Facial numbness 03/31/2019 04/03/2019 GI bleed 12/31/2018 01/11/2019 Frequency of urination 03/19/2018 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 documented as of this encounter (statuses as of 07/19/2022) [address]-2021 History of Past illness Narrative* Problem Noted Date Resolved Date Closed left subtrochanteric femur fracture 07/2207/27/2020 Facial numbness 03/31/2019 04/03/2019 GI bleed 12/31/2018 01/11/2019 Frequency of urination 03/19/2018 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 documented as of this encounter (statuses as of 07/19/2022) [address]-2021 History of Past illness Narrative* Problem Noted Date Resolved Date Closed left subtrochanteric femur fracture 07/2207/27/2020 Facial numbness 03/31/2019 04/03/2019 GI bleed 12/31/2018 01/11/2019 Frequency of urination 03/19/2018 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 documented as of this encounter (statuses as of 07/22/2022) [address]-2021 History of Past illness Narrative* Problem Noted Date Resolved Date Closed left subtrochanteric femur fracture 07/2207/27/2020 Facial numbness 03/31/2019 04/03/2019 GI bleed 12/31/2018 01/11/2019 Frequency of urination 03/19/2018 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 documented as of this encounter (statuses as of 07/23/2022) [address]-2021 History of Past illness Narrative* Problem Noted Date Resolved Date Closed left subtrochanteric femur fracture 07/2207/27/2020 Facial numbness 03/31/2019 04/03/2019 GI bleed 12/31/2018 01/11/2019 Frequency of urination 03/19/2018 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 documented as of this encounter (statuses as of 07/26/2022) [address]-2021 History of Past illness Narrative* Problem Noted Date Resolved Date Closed left subtrochanteric femur fracture 07/2207/27/2020 Facial numbness 03/31/2019 04/03/2019 GI bleed 12/31/2018 01/11/2019 Frequency of urination 03/19/2018 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 documented as of this encounter (statuses as of 07/26/2022) [address]-2021 History of Past illness Narrative* Problem Noted Date Resolved Date Closed left subtrochanteric femur fracture 07/2207/27/2020 Facial numbness 03/31/2019 04/03/2019 GI bleed 12/31/2018 01/11/2019 Frequency of urination 03/19/2018 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 documented as of this encounter (statuses as of 07/29/2022) [address]-2021 History of Past illness Narrative* Problem Noted Date Resolved Date Closed left subtrochanteric femur fracture 07/2207/27/2020 Facial numbness 03/31/2019 04/03/2019 GI bleed 12/31/2018 01/11/2019 Frequency of urination 03/19/2018 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 documented as of this encounter (statuses as of 08/01/2022) [address]-2021 History of Past illness Narrative* Problem Noted Date Resolved Date Closed left subtrochanteric femur fracture 07/2207/27/2020 Facial numbness 03/31/2019 04/03/2019 GI bleed 12/31/2018 01/11/2019 Frequency of urination 03/19/2018 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 documented as of this encounter (statuses as of 08/02/2022) [address]-2021 History of Past illness Narrative* Problem Noted Date Resolved Date Closed left subtrochanteric femur fracture 07/2207/27/2020 Facial numbness 03/31/2019 04/03/2019 GI bleed 12/31/2018 01/11/2019 Frequency of urination 03/19/2018 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 documented as of this encounter (statuses as of 08/02/2022) [address]-2021 History of Past illness Narrative* Problem Noted Date Resolved Date Closed left subtrochanteric femur fracture 07/2207/27/2020 Facial numbness 03/31/2019 04/03/2019 GI bleed 12/31/2018 01/11/2019 Frequency of urination 03/19/2018 9 AVM (arteriovenous malformation) of colon 01/11/2019 documented as of this encounter (statuses as of 08/07/2022) [address]-2021 History of Past illness Narrative* Problem Noted Date Resolved Date Closed left subtrochanteric femur fracture 07/2207/27/2020 Facial numbness 03/31/2019 04/03/2019 GI bleed 12/31/2018 01/11/2019 Frequency of urination 03/19/2018 9 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 documented as of this encounter (statuses as of 08/08/2022) [address]-2021 History of Past illness Narrative* Problem Noted Date Resolved Date Closed left subtrochanteric femur fracture 07/2207/27/2020 Facial numbness 03/31/2019 04/03/2019 GI bleed 12/31/2018 01/11/2019 Frequency of urination 03/19/2018 9 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 documented as of this encounter (statuses as of 08/12/2022) [address]10-2021 History of Past illness Narrative* Problem Noted Date Resolved Date Closed left subtrochanteric femur fracture 07/2207/27/2020 Facial numbness 03/31/2019 04/03/2019 GI bleed 12/31/2018 01/11/2019 Frequency of urination 03/19/2018 9 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 documented as of this encounter (statuses as of 08/14/2022) [address]10-2021 History of Past illness Narrative* Problem Noted Date Resolved Date Closed left subtrochanteric femur fracture 07/2207/27/2020 Facial numbness 03/31/2019 04/03/2019 GI bleed 12/31/2018 01/11/2019 Frequency of urination 03/19/2018 9 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 documented as of this encounter (statuses as of 08/15/2022) [address]-2021 History of Past illness Narrative* Problem Noted Date Resolved Date Closed left subtrochanteric femur fracture 07/2207/27/2020 Facial numbness 03/31/2019 04/03/2019 GI bleed 12/31/2018 01/11/2019 Frequency of urination 03/19/2018 9 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 documented as of this encounter (statuses as of 08/19/2022) [address]10-2021 History of Past illness Narrative* Problem Noted Date Resolved Date Closed left subtrochanteric femur fracture 07/2207/27/2020 Facial numbness 03/31/2019 04/03/2019 GI bleed 12/31/2018 01/11/2019 Frequency of urination 03/19/2018 9 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 documented as of this encounter (statuses as of 08/21/2022) [address]10-2021 History of Past illness Narrative* Problem Noted Date Resolved Date Closed left subtrochanteric femur fracture 07/2207/27/2020 Facial numbness 03/31/2019 04/03/2019 GI bleed 12/31/2018 01/11/2019 Frequency of urination 03/19/2018 9 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 documented as of this encounter (statuses as of 08/27/2022) [address]10-2021 History of Past illness Narrative* Problem Noted Date Resolved Date Closed left subtrochanteric femur fracture 07/2207/27/2020 Facial numbness 03/31/2019 04/03/2019 GI bleed 12/31/2018 01/11/2019 Frequency of urination 03/19/2018 9 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 documented as of this encounter (statuses as of 08/29/2022) [address]10-2021 History of Past illness Narrative* Problem Noted Date Resolved Date Closed left subtrochanteric femur fracture 07/2207/27/2020 Facial numbness 03/31/2019 04/03/2019 GI bleed 12/31/2018 01/11/2019 Frequency of urination 03/19/2018 9 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 documented as of this encounter (statuses as of 09/16/2022) [address]10-2021 History of Past illness Narrative* Problem Noted Date Resolved Date Closed left subtrochanteric femur fracture 07/2207/27/2020 Facial numbness 03/31/2019 04/03/2019 GI bleed 12/31/2018 01/11/2019 Frequency of urination 03/19/2018 9 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 documented as of this encounter (statuses as of 09/18/2022) [address]10-2021 History of Past illness Narrative* Problem Noted Date Resolved Date Closed left subtrochanteric femur fracture 07/2207/27/2020 Facial numbness 03/31/2019 04/03/2019 GI bleed 12/31/2018 01/11/2019 Frequency of urination 03/19/2018 9 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 documented as of this encounter (statuses as of 09/26/2022) [address]10-2021 History of Past illness Narrative* Problem Noted Date Resolved Date Closed left subtrochanteric femur fracture 07/2207/27/2020 Facial numbness 03/31/2019 04/03/2019 GI bleed 12/31/2018 01/11/2019 Frequency of urination 03/19/2018 9 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 documented as of this encounter (statuses as of 10/03/2022) [address]10-2021 History of Past illness Narrative* Problem Noted Date Resolved Date Closed left subtrochanteric femur fracture 07/2207/27/2020 Facial numbness 03/31/2019 04/03/2019 GI bleed 12/31/2018 01/11/2019 Frequency of urination 03/19/2018 9 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 documented as of this encounter (statuses as of 10/10/2022) [address]10-2021 History of Past illness Narrative* Problem Noted Date Resolved Date Closed left subtrochanteric femur fracture 07/2207/27/2020 Facial numbness 03/31/2019 04/03/2019 GI bleed 12/31/2018 01/11/2019 Frequency of urination 03/19/2018 9 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 documented as of this encounter (statuses as of 10/10/2022) [address]10-2021 History of Past illness Narrative* Problem Noted Date Resolved Date Closed left subtrochanteric femur fracture 07/2207/27/2020 Facial numbness 03/31/2019 04/03/2019 GI bleed 12/31/2018 01/11/2019 Frequency of urination 03/19/2018 9 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 documented as of this encounter (statuses as of 10/10/2022) [address]-2021 History of Past illness Narrative* Problem Noted Date Resolved Date Closed left subtrochanteric femur fracture 07/2207/27/2020 Facial numbness 03/31/2019 04/03/2019 GI bleed 12/31/2018 01/11/2019 Frequency of urination 03/19/2018 9 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 documented as of this encounter (statuses as of 10/17/2022) [address]-2021 History of Past illness Narrative* Problem Noted Date Resolved Date Closed left subtrochanteric femur fracture 07/2207/27/2020 Facial numbness 03/31/2019 04/03/2019 GI bleed 12/31/2018 01/11/2019 Frequency of urination 03/19/2018 9 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 documented as of this encounter (statuses as of 10/17/2022) [address]10-2021 History of Past illness Narrative* Problem Noted Date Resolved Date Closed left subtrochanteric femur fracture 07/2207/27/2020 Facial numbness 03/31/2019 04/03/2019 GI bleed 12/31/2018 01/11/2019 Frequency of urination 03/19/2018 9 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 documented as of this encounter (statuses as of 10/18/2022) [address]-2021 History of Past illness Narrative* Problem Noted Date Resolved Date Closed left subtrochanteric femur fracture 07/2207/27/2020 Facial numbness 03/31/2019 04/03/2019 GI bleed 12/31/2018 01/11/2019 Frequency of urination 03/19/2018 9 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 documented as of this encounter (statuses as of 10/18/2022) [address]-2021 History of Past illness Narrative* Problem Noted Date Diagnosed Date Resolved Date Closed left subtrochanteric femur fracture 07/22/2020 07/27/2020 Facial numbness 03/31/2019 04/03/2019 GI bleed 12/31/2018 01/11/2019 Frequency of urination 03/19/201802/11 AVM (arteriovenous malformation) of colon 01/11/2019 documented as of this encounter (statuses as of 10/19/2022) [address]-2021 History of Past illness Narrative* Problem Noted Date Diagnosed Date Resolved Date Closed left subtrochanteric femur fracture 07/22/2020 07/27/2020 Facial numbness 03/31/2019 04/03/2019 GI bleed 12/31/2018 01/11/2019 Frequency of urination 03/19/201802/11 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/11/2019 documented as of this encounter (statuses as of 10/22/2022) [address]-2021 History of Past illness Narrative* Problem Noted Date Diagnosed Date Resolved Date Closed left subtrochanteric femur fracture 07/22/2020 07/27/2020 Facial numbness 03/31/2019 04/03/2019 GI bleed 12/31/2018 01/11/2019 Frequency of urination 03/19/201802/11 AVM (arteriovenous malformation) of colon 01/11/2019 documented as of this encounter (statuses as of 10/24/2022) [address]10-2021 History of Past illness Narrative* Problem Noted Date Diagnosed Date Resolved Date Closed left subtrochanteric femur fracture 07/22/2020 07/27/2020 Facial numbness 03/31/2019 04/03/2019 GI bleed 12/31/2018 01/11/2019 Frequency of urination 03/19/201802/11 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/11/2019 documented as of this encounter (statuses as of 10/24/2022) [address]-2021 History of Past illness Narrative* Problem Noted Date Diagnosed Date Resolved Date Closed left subtrochanteric femur fracture 07/22/2020 07/27/2020 Facial numbness 03/31/2019 04/03/2019 GI bleed 12/31/2018 01/11/2019 Frequency of urination 03/19/201802/11 AVM (arteriovenous malformation) of colon 01/11/2019 documented as of this encounter (statuses as of 11/04/2022) [address]-2021 History of Past illness Narrative* Problem Noted Date Diagnosed Date Resolved Date Closed left subtrochanteric femur fracture 07/22/2020 07/27/2020 Facial numbness 03/31/2019 04/03/2019 GI bleed 12/31/2018 01/11/2019 Frequency of urination 03/19/201802/11 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/11/2019 documented as of this encounter (statuses as of 11/06/2022) [address]-2021 History of Past illness Narrative* Problem Noted Date Diagnosed Date Resolved Date Closed left subtrochanteric femur fracture 07/22/2020 07/27/2020 Facial numbness 03/31/2019 04/03/2019 GI bleed 12/31/2018 01/11/2019 Frequency of urination 03/19/201802/11 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/11/2019 documented as of this encounter (statuses as of 11/07/2022) [address]-2021 History of Past illness Narrative* Problem Noted Date Diagnosed Date Resolved Date Closed left subtrochanteric femur fracture 07/22/2020 07/27/2020 Facial numbness 03/31/2019 04/03/2019 GI bleed 12/31/2018 01/11/2019 Frequency of urination 03/19/201802/11 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/11/2019 documented as of this encounter (statuses as of 11/12/2022) [address]-2021 History of Past illness Narrative* Problem Noted Date Diagnosed Date Resolved Date Closed left subtrochanteric femur fracture 07/22/2020 07/27/2020 Facial numbness 03/31/2019 04/03/2019 GI bleed 12/31/2018 01/11/2019 Frequency of urination 03/19/201802/11 AVM (arteriovenous malformation) of colon 01/11/2019 documented as of this encounter (statuses as of 11/13/2022) [address]-2021 History of Past illness Narrative* Problem Noted Date Diagnosed Date Resolved Date Closed left subtrochanteric femur fracture 07/22/2020 07/27/2020 Facial numbness 03/31/2019 04/03/2019 GI bleed 12/31/2018 01/11/2019 Frequency of urination 03/19/201802/11 AVM (arteriovenous malformation) of colon 01/11/2019 documented as of this encounter (statuses as of 11/15/2022) [address]-2021 History of Past illness Narrative* Problem Noted Date Diagnosed Date Resolved Date Closed left subtrochanteric femur fracture 07/22/2020 07/27/2020 Facial numbness 03/31/2019 04/03/2019 GI bleed 12/31/2018 01/11/2019 Frequency of urination 03/19/201802/11 AVM (arteriovenous malformation) of colon 01/11/2019 documented as of this encounter (statuses as of 11/16/2022) [address]-2021 History of Past illness Narrative* Problem Noted Date Diagnosed Date Resolved Date Closed left subtrochanteric femur fracture 07/22/2020 07/27/2020 Facial numbness 03/31/2019 04/03/2019 GI bleed 12/31/2018 01/11/2019 Frequency of urination 03/19/201802/11 AVM (arteriovenous malformation) of colon 01/11/2019 documented as of this encounter (statuses as of 11/18/2022) [address]-2021 History of Past illness Narrative* Problem Noted Date Diagnosed Date Resolved Date Closed left subtrochanteric femur fracture 07/22/2020 07/27/2020 Facial numbness 03/31/2019 04/03/2019 GI bleed 12/31/2018 01/11/2019 Frequency of urination 03/19/201802/11 AVM (arteriovenous malformation) of colon 01/11/2019 documented as of this encounter (statuses as of 11/21/2022) [address]-2021 History of Past illness Narrative* Problem Noted Date Diagnosed Date Resolved Date Closed left subtrochanteric femur fracture 07/22/2020 07/27/2020 Facial numbness 03/31/2019 04/03/2019 GI bleed 12/31/2018 01/11/2019 Frequency of urination 03/19/201802/11 AVM (arteriovenous malformation) of colon 01/11/2019 documented as of this encounter (statuses as of 11/22/2022) [address]-2021 History of Past illness Narrative* Problem Noted Date Diagnosed Date Resolved Date Closed left subtrochanteric femur fracture 07/22/2020 07/27/2020 Facial numbness 03/31/2019 04/03/2019 GI bleed 12/31/2018 01/11/2019 Frequency of urination 03/19/201802/11 AVM (arteriovenous malformation) of colon 01/11/2019 documented as of this encounter (statuses as of 11/23/2022) [address]-2021 History of Past illness Narrative* Problem Noted Date Diagnosed Date Resolved Date Closed left subtrochanteric femur fracture 07/22/2020 07/27/2020 Facial numbness 03/31/2019 04/03/2019 GI bleed 12/31/2018 01/11/2019 Frequency of urination 03/19/201802/11 AVM (arteriovenous malformation) of colon 01/11/2019 documented as of this encounter (statuses as of 11/24/2022) [address]-2021 History of Past illness Narrative* Problem Noted Date Diagnosed Date Resolved Date Closed left subtrochanteric femur fracture 07/22/2020 07/27/2020 Facial numbness 03/31/2019 04/03/2019 GI bleed 12/31/2018 01/11/2019 Frequency of urination 03/19/201802/11 AVM (arteriovenous malformation) of colon 01/11/2019 documented as of this encounter (statuses as of 11/26/2022) [address]-2021 History of Past illness Narrative* Problem Noted Date Diagnosed Date Resolved Date Closed left subtrochanteric femur fracture 07/22/2020 07/27/2020 Facial numbness 03/31/2019 04/03/2019 GI bleed 12/31/2018 01/11/2019 Frequency of urination 03/19/201802/11 AVM (arteriovenous malformation) of colon 01/11/2019 documented as of this encounter (statuses as of 11/27/2022) [address]-2021 History of Past illness Narrative* Problem Noted Date Diagnosed Date Resolved Date Closed left subtrochanteric femur fracture 07/22/2020 07/27/2020 Facial numbness 03/31/2019 04/03/2019 GI bleed 12/31/2018 01/11/2019 Frequency of urination 03/19/201802/11 AVM (arteriovenous malformation) of colon 01/11/2019 documented as of this encounter (statuses as of 11/27/2022) [address]-2021 History of Past illness Narrative* Problem Noted Date Diagnosed Date Resolved Date Closed left subtrochanteric femur fracture 07/22/2020 07/27/2020 Facial numbness 03/31/2019 04/03/2019 GI bleed 12/31/2018 01/11/2019 Frequency of urination 03/19/201802/11 AVM (arteriovenous malformation) of colon 01/11/2019 documented as of this encounter (statuses as of 11/28/2022) [address]-2021 History of Past illness Narrative* Problem Noted Date Diagnosed Date Resolved Date Closed left subtrochanteric femur fracture 07/22/2020 07/27/2020 Facial numbness 03/31/2019 04/03/2019 GI bleed 12/31/2018 01/11/2019 Frequency of urination 03/19/201802/11 AVM (arteriovenous malformation) of colon 01/11/2019 documented as of this encounter (statuses as of 11/28/2022) [address]-2021 History of Past illness Narrative* Problem Noted Date Diagnosed Date Resolved Date Closed left subtrochanteric femur fracture 07/22/2020 07/27/2020 Facial numbness 03/31/2019 04/03/2019 GI bleed 12/31/2018 01/11/2019 Frequency of urination 03/19/201802/11 AVM (arteriovenous malformation) of colon 01/11/2019 documented as of this encounter (statuses as of 11/29/2022) [facility]04-10-2021 History of Past illness Narrative* Problem Noted Date Diagnosed Date Resolved Date Closed left subtrochanteric femur fracture 07/22/2020 07/27/2020 Facial numbness 03/31/2019 04/03/2019 GI bleed 12/31/2018 01/11/2019 Frequency of urination 03/19/201802/11 AVM (arteriovenous malformation) of colon 01/11/2019 documented as of this encounter (statuses as of 12/09/2022) [address]21 History of Past illness Narrative* Problem Noted Date Diagnosed Date Resolved Date Closed left subtrochanteric femur fracture 07/22/2020 07/27/2020 Facial numbness 03/31/2019 04/03/2019 GI bleed 12/31/2018 01/11/2019 Frequency of urination 03/19/201802/11 AVM (arteriovenous malformation) of colon 01/11/2019 documented as of this encounter (statuses as of 12/10/2022) [facility] [place] [facility] No data available for this section [facility] Evaluation note* Diagnosis Impaired functional mobility, balance, gait, and endurance- Primary Chronic pain of left knee Pain in joint, lower leg Left hip pain Pain in joint, pelvic region and thigh documented in this encounter [facility] Diagnosis Elevated prostate specific antigen (PSA)- Primary Personal history of renal cancer Personal history of malignant neoplasm of kidney Hydrocele in adult Renal cancer, right (HCC) 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 [facility] Diagnosis Impaired functional mobility, balance, gait, and endurance- Primary [facility] Diagnosis Impaired functional mobility, balance, gait, and endurance- Primary Left hip pain Pain in joint, pelvic region and thigh Chronic pain of left knee Pain in joint, lower leg [facility] Diagnosis Impaired functional mobility, balance, gait, and endurance- Primary Left hip pain Pain in joint, pelvic region and thigh [facility] Diagnosis Impaired functional mobility, balance, gait, and endurance- Primary Left hip pain Pain in joint, pelvic region and thigh Chronic pain of left knee Pain in joint, lower leg Pain in left hip Pain in joint, pelvic region and thigh [facility] [place] [facility] Diagnosis Impaired functional mobility, balance, gait, and endurance- Primary Chronic pain of left knee Pain in joint, lower leg Left hip pain Pain in joint, pelvic region and thigh [facility] [place] [facility] Diagnosis Impaired functional mobility, balance, gait, and endurance- Primary Chronic pain of left knee Pain in joint, lower leg Left hip pain Pain in joint, pelvic region and thigh [facility] Diagnosis Impaired functional mobility, balance, gait, and endurance- Primary Chronic pain of left knee Pain in joint, lower leg Left hip pain Pain in joint, pelvic region and thigh [facility] [place] [facility]* Diagnosis CLL (chronic lymphocytic leukemia) (HCC)- Primary Chronic lymphoid leukemia, without mention of having achieved remission [facility] [place] [facility]* Diagnosis Elevated prostate specific antigen (PSA)- Primary [facility] Diagnosis Impaired functional mobility, balance, gait, and endurance- Primary Chronic pain of left knee Pain in joint, lower leg Left hip pain Pain in joint, pelvic region and thigh [facility] [place] [facility]* Diagnosis Elevated PSA- Primary Elevated prostate specific antigen (PSA) Primary insomnia Persistent disorder of initiating or maintaining sleep [facility] [place] [facility]* Diagnosis Impaired functional mobility, balance, gait, and endurance- Primary Chronic pain of left knee Pain in joint, lower leg Left hip pain Pain in joint, pelvic region and thigh [facility] Diagnosis Iron deficiency anemia due to chronic blood loss- Primary Iron deficiency anemia secondary to blood loss (chronic) Other insomnia [facility] Diagnosis Impaired functional mobility, balance, gait, and endurance- Primary [facility] [place] [facility]* Diagnosis Post PTCA- Primary Postsurgical percutaneous [...] with hemorrhage NSTEMI (non-ST elevated myocardial infarction) ([facility]) Acute myocardial infarction, subendocardial infarction, episode of care unspecified [facility]* Diagnosis Physical deconditioning- Primary Debility, unspecified Impaired functional mobility, balance, gait, and endurance Muscular deconditioning Muscular wasting and disuse atrophy, not elsewhere classified [facility] [place] [facility] Diagnosis Physical deconditioning- Primary Debility, unspecified Impaired functional mobility, balance, gait, and endurance Muscular deconditioning Muscular wasting and disuse atrophy, not elsewhere classified documented in this encounter [facility] note* Diagnosis Physical deconditioning- Primary Debility, unspecified Impaired functional mobility, balance, gait, and endurance Muscular deconditioning Muscular wasting and disuse atrophy, not elsewhere classified documented in this encounter [facility] note* Diagnosis Essential thrombocythemia (HCC)- Primary Essential thrombocythemia documented in this encounter [facility] note* Diagnosis Physical deconditioning- Primary Debility, unspecified [facility] [place] [facility]* Diagnosis Physical deconditioning- Primary Debility, unspecified Impaired functional mobility, balance, gait, and endurance documented in this encounter [facility] note* Diagnosis Other insomnia Renal cancer, right (HCC) CLL (chronic lymphocytic leukemia) (HCC) Chronic lymphoid leukemia, without mention of having achieved remission [facility] [place] [facility]* Diagnosis Chronic obstructive pulmonary disease with acute exacerbation (HCC)- Primary Obstructive chronic bronchitis with exacerbation Deep vein thrombosis (DVT) of left lower extremity, unspecified chronicity, unspecified vein (HCC) Localized swelling, mass and lump, left upper limb History of colonic polyps Personal history of colonic polyps documented [facility] [place] [facility]* Diagnosis Deep vein thrombosis (DVT) of left lower extremity, unspecified chronicity, unspecified vein (HCC) Localized swelling, mass and lump, left upper limb [facility] [place] [facility]* Diagnosis Iron deficiency anemia due to chronic blood loss- Primary Iron deficiency anemia secondary to blood loss (chronic) Acute deep vein thrombosis (DVT) of popliteal vein of left lower extremity (HCC) Right calf pain [facility] [place] [facility]* Diagnosis NSTEMI (non-ST elevated myocardial infarction) [...] Dizziness and giddiness documented [facility] this [facility] [place] [facility]* Diagnosis Essential thrombocythemia (HCC)- Primary Essential thrombocythemia documented [facility] this encounter [facility] [place] [facility]* Diagnosis 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 medical condition- Primary Mood disorder in conditions classified elsewhere [facility] [place] [facility]* Diagnosis CIRA on CPAP- Primary Obstructive sleep apnea (adult) (pediatric) Primary insomnia Persistent disorder of initiating or maintaining sleep Severe muscle deconditioning Other specific muscle disorders documented [facility] this encounter [facility] [place] [facility]* Diagnosis CLL (chronic lymphocytic leukemia) (HCC)- Primary Chronic lymphoid leukemia, without mention of having achieved remission Essential thrombocythemia (HCC) Essential thrombocythemia Acute blood loss anemia- Primary Acute posthemorrhagic anemia Severe anemia Stage 3 chronic kidney disease, unspecified whether stage 3a or 3b CKD (HCC) Other iron deficiency anemia documented [facility] this [facility] [place] [facility]* Diagnosis Pulmonary embolism, unspecified chronicity, unspecified pulmonary embolism type, unspecified whether acute cor pulmonale present (HCC)- Primary Renal cancer, right (HCC) Deep vein thrombosis (DVT) of femoral vein of left lower extremity, unspecified chronicity (HCC) documented in this encounter [facility] [place] [facility]* Diagnosis Atrial fibrillation, unspecified type (CMS/HCC)- Primary documented in this encounter [facility] Work Phone: Evaluation note* Diagnosis Acute midline low back pain without sciatica- Primary Physical deconditioning Debility, unspecified documented [facility] this encounter [facility] [place] [facility]* Diagnosis Physical deconditioning- Primary Debility, unspecified documented in this encounter [facility] [place] [facility]* Diagnosis Physical deconditioning- Primary Debility, unspecified Acute midline low back pain without sciatica Impaired functional mobility, balance, gait, and endurance documented in this encounter [facility] [place] [facility]* Diagnosis Physical deconditioning- Primary Debility, unspecified documented [facility] encounter [facility]* Diagnosis Physical deconditioning- Primary Debility, unspecified documented in this encounter [facility] [place] [facility]* Diagnosis Physical deconditioning- Primary Debility, unspecified Acute midline low back pain without sciatica documented in this encounter [facility] note* Diagnosis Physical deconditioning- Primary Debility, unspecified documented in this encounter [facility] note* Diagnosis Physical deconditioning- Primary Debility, unspecified documented in this encounter [facility] note* Diagnosis Physical deconditioning- Primary Debility, unspecified Acute midline low back pain without sciatica Impaired functional mobility, balance, gait, and endurance documented in this encounter [facility] note* Diagnosis Acute midline low back pain without sciatica- Primary documented in this encounter [facility] note* Diagnosis Iron deficiency anemia due to chronic blood loss- Primary Iron deficiency anemia secondary to blood loss (chronic) documented in this encounter [facility] note* Diagnosis Other non-recurrent acute nonsuppurative otitis media of right ear- Primary Wheezing Acute cough documented in this encounter [facility] note* Diagnosis Iron deficiency anemia due to chronic blood loss- Primary Iron deficiency anemia secondary to blood loss (chronic) documented in this encounter [facility] note* Diagnosis Impaired functional mobility, balance, gait, and endurance- Primary documented in this encounter [facility] note* Diagnosis Impaired functional mobility, balance, gait, and endurance- Primary documented in this encounter [facility] note* Diagnosis Impaired functional mobility, balance, gait, and endurance- Primary Acute midline low back pain without sciatica Physical deconditioning Debility, unspecified Muscular deconditioning Muscular wasting and disuse atrophy, not elsewhere classified documented in this encounter [facility] Discharge instructions No data available for this section [facility] Instructions* Attachments The following attachments cannot be sent through Care Everywhere. * Ear Infection ED ([facility]) * Azithromycin (Systemic), ADULT ([facility]) [facility] No data available for this section [facility] Reason for referral (narrative)* Outpatient Procedure (Routine) - Pending Review Specialty Diagnoses / Procedures Referred By Yasmin t Referred To Contact [facility] Diagnoses History of colonic polyps Procedures COLONOSCOPY SCREENING COLONOSCOPY FLX DX W/COLLJ SPEC WHEN PFRMD Ulises Ramos, DO [address] [place] [address] [facility] [place] [address] [place] [id number] Referral ID Status Reason Start Date Expiration Date Visits Requested Visits Authorized [id number] Pending Review Auto-Generat ed Referral 07/02/2022 07/03/2023 [...] XTR VEINS UNILATERAL/LIMITED STUDY Ulises Ramos DO [address] [place] [address] [facility] Referral ID Status Reason Start Date Expiration Date Visits Requested Visits Authorized [id number] Pending Review Auto-Generat ed Referral 07/02/2022 08/01/2023 1 1 * Outpatient Procedure (Routine) - Pending Review Specialty Diagnoses / Procedures Referred By Contac t Referred To [facility] Diagnoses Chronic obstructive pulmonary disease with acute exacerbation (HCC) Procedures SPIROMETRY - BASELINE AND POST DILATOR BRNCDILAT RSPSE SPMTRY PRE&POST-BRNCDILAT ADMN Ulises Ramos DO [address] [place] [address] [facility] [place] [address] [place] [id number] Referral ID Status Reason Start Date Expiration Date Visits Requested Visits Authorized [id number] Pending Review Auto-Generat ed Referral 07/02/2022 08/01/2023 1 1 [facility] for referral (narrative)* Diagnostic Procedure Only (Routine) - Closed Specialty Diagnoses / Procedures Referred By Contac t Referred To Contact [facility] Diagnoses Deep vein thrombosis (DVT) of left lower extremity, unspecified chronicity, unspecified vein (HCC) Localized swelling, mass and lump, left upper limb Procedures US DVT LOWER LT DUP-SCAN XTR VEINS UNILATERAL/LIMITED STUDY Ulises Ramos DO [address] [place] [address] [facility] Referral ID Status Reason Start Date Expiration Date V isits Requested Visits Authorized [id number] Closed Auto-Generate d Referral 07/02/2022 08/01/2023 1 1 [facility] for referral (narrative)* Diagnostic Procedure Only (Routine) - Authorized Specialty Diagnoses / Procedures Referred By Contac t Referred To Contact [facility] Diagnoses Iron deficiency anemia due to chronic blood loss Acute deep vein thrombosis (DVT) of popliteal vein of left lower extremity (HCC) Right calf pain Procedures US EXTREMITY MASS/FLUID COLLECTION LEFT Ulises Ramos DO [address] [place] [address] [facility] Imaging Referral ID Status Reason Start Date Expiration Date Visits Requested Visits Authorized [id number] Authorized Auto-Generat ed Referral 07/11/2022 08/10/2023 1 [...] STUDY Ulises Ramos DO [address] [place] [address] [facility] Imaging Referral ID Status Reason Start Date Expiration Date Visits Requested Visits Authorized [id number] Authorized Auto-Generat ed Referral 07/11/2022 08/10/2023 1 1 [facility] for referral (narrative)* Diagnostic Procedure Only (Routine) - Closed Specialty Diagnoses / Procedures Referred By Contac t Referred To Contact [facility] Diagnoses Iron deficiency anemia due to chronic blood loss Acute deep vein thrombosis (DVT) of popliteal vein of left lower extremity (HCC) Right calf pain Procedures US DVT LOWER RIGHT DUP-SCAN XTR VEINS UNILATERAL/LIMITED STUDY Ulises Ramos, DO [address] [place] [address] [facility] Imaging Referral ID Status Reason Start Date Expiration Date V isits Requested Visits Authorized [id number] Closed Auto-Generate d Referral 07/11/2022 08/10/2023 1 1 [facility] for referral (narrative)* Diagnostic Procedure Only (Routine) - Closed Specialty Diagnoses / Procedures Referred By Contac t Referred To Contact [facility] Diagnoses Iron deficiency anemia due to chronic blood loss Acute deep vein thrombosis (DVT) of popliteal vein of left lower extremity (HCC) Right calf pain Procedures US EXTREMITY MASS/FLUID COLLECTION LEFT Ulises Ramos, DO [address] [place] [address] [facility] Imaging Referral ID Status Reason Start Date Expiration Date V isits Requested Visits Authorized [id number] Closed Auto-Generate d Referral 07/11/2022 08/10/2023 1 1 [facility] for referral (narrative)* Outpatient Procedure (Routine) - Pending Review Specialty Diagnoses / Procedures Referred By Contac t Referred To Contact [facility] Diagnoses Gastrointestinal hemorrhage, unspecified gastrointestinal hemorrhage type Procedures COLONOSCOPY DIAGNOSTIC COLONOSCOPY FLX DX W/COLLJ SPEC WHEN Hortencia Henderson MD [address] [place] [address] [facility] [place] [address] [place] [address] Referral ID Status Reason Start Date Expiration Date Visits Requested Visits Authorized [id number] Pending Review Auto-Generat ed Referral 08/07/2022 08/08/2023 1 1 * Outpatient Procedure (Routine) - Pending Review Specialty Diagnoses / Procedures Referred By Yasmin carey Referred To [facility] Diagnoses Gastrointestinal hemorrhage, unspecified gastrointestinal hemorrhage type Procedures ENTEROSCOPY ENDOSCOPY UPPER SMALL INTESTINE Hortencia Gallardo MD [address] [place] [address] [address] Referral ID Status Reason Start Date Expiration Date Visits Requested Visits Authorized [id number] Pending Review Auto-Generat ed Referral 08/07/2022 08/08/2023 1 1 [facility] for referral (narrative)* Outpatient Procedure (Routine) - Closed Specialty Diagnoses / Procedures Referred By Yasmin t Referred To [facility] Diagnoses Gastrointestinal hemorrhage, unspecified gastrointestinal hemorrhage type Procedures COLONOSCOPY DIAGNOSTIC COLONOSCOPY FLX DX W/COLLJ SPEC WHEN PFRMD Hortencia Gallardo MD [address] [place] [address] [address] Referral ID Status Reason Start Date Expiration Date V isits Requested Visits Authorized [id number] Closed Auto-Generate d Referral 08/07/2022 08/08/2023 1 1 * Outpatient Procedure (Routine) - Closed Specialty Diagnoses / Procedures Referred By Yasmin t Referred To [facility] Diagnoses Gastrointestinal hemorrhage, unspecified gastrointestinal hemorrhage type Procedures ENTEROSCOPY ENDOSCOPY UPPER SMALL INTESTINE Hortencia Gallardo MD [address] [place] [address] [address] Referral ID Status Reason Start Date Expiration Date V isits Requested Visits Authorized [id number] Closed Auto-Generate d Referral 08/07/2022 08/08/2023 1 1 [facility] for referral (narrative)* Diagnostic Procedure Only (Routine) - Closed Specialty Diagnoses / Procedures Referred By Contac t Referred To Contact [facility] Diagnoses Leg edema Procedures US DVT LOWER BILATERAL DUP-SCAN XTR VEINS COMPLETE BILATERAL STUDY Halle Dale MD [address] [place] [address] Us Imaging Referral ID Status Reason Start Date Expiration Date V isits Requested Visits Authorized [id number] Closed Auto-Generate d Referral 10/16/2022 11/15/2023 1 1 [facility] for referral (narrative)* Diagnostic Procedure Only (Routine) - Closed Specialty Diagnoses / Procedures Referred By Contac t Referred To Contact [facility] Diagnoses Leg edema Procedures US DVT LOWER BILATERAL DUP-SCAN XTR VEINS COMPLETE BILATERAL STUDY Halle Dale MD [address] [place] [address] Us Imaging Referral ID Status Reason Start Date Expiration Date V isits Requested Visits Authorized [id number] Closed Auto-Generate d Referral 10/16/2022 11/15/2023 1 1 [facility] for visit Narrative* Diagnostic Procedure Only (Routine) - Closed Specialty Diagnoses / Procedures Referred By Contac t Referred To Contact [facility] Diagnoses Deep vein thrombosis (DVT) of left lower extremity, unspecified chronicity, unspecified vein (HCC) Localized swelling, mass and lump, left upper limb Procedures US DVT LOWER LT DUP-SCAN XTR VEINS UNILATERAL/LIMITED STUDY Ulises Ramos, DO [address] [place] [address] Us Imaging Referral ID Status Reason Start Date Expiration Date V isits Requested Visits Authorized [id number] Closed Auto-Generate d Referral 07/02/2022 08/01/2023 1 1 [facility] for visit Narrative* Diagnostic Procedure Only [...] STUDY RichardUlises lawrence, DO [address] [place] [address] Us Imaging Referral ID Status Reason Start Date Expiration Date V isits Requested Visits Authorized [id number] Closed Auto-Generate d Referral 07/11/2022 08/10/2023 1 1 [facility] for visit Narrative* Diagnostic Procedure Only (Routine) - Closed Specialty Diagnoses / Procedures Referred By Contac t Referred To Contact [facility] Diagnoses Iron deficiency anemia due to chronic blood loss Acute deep vein thrombosis (DVT) of popliteal vein of left lower extremity (HCC) Right calf pain Procedures US EXTREMITY MASS/FLUID COLLECTION LEFT Ulises Ramos, DO [address] [place] [address] Us Imaging Referral ID Status Reason Start Date Expiration Date V isits Requested Visits Authorized [id number] Closed Auto-Generate d Referral 07/11/2022 08/10/2023 1 1 [facility] for visit Narrative* Outpatient Procedure (Routine) - Closed Specialty Diagnoses / Procedures Referred By Contac t Referred To Contact [facility] Diagnoses Gastrointestinal hemorrhage, unspecified gastrointestinal hemorrhage type Procedures COLONOSCOPY DIAGNOSTIC COLONOSCOPY FLX DX W/COLLJ SPEC WHEN PFRMD Hortencia Gallardo MD [address] [place] [address] [facility] [place] [address] [place] [address] Referral ID Status Reason Start Date Expiration Date V isits Requested Visits Authorized [id number] Closed Auto-Generate d Referral 08/07/2022 08/08/2023 1 1 [facility] for visit Narrative* Diagnostic Procedure Only (Routine) - Closed Specialty Diagnoses / Procedures Referred By Contac t Referred To Contact [facility] Diagnoses Leg edema Procedures US DVT LOWER BILATERAL DUP-SCAN XTR VEINS COMPLETE BILATERAL STUDY Halle Dale MD [address] [place] [address] Us Imaging Referral ID Status Reason Start Date Expiration Date V isits Requested Visits Authorized [id number] Closed Auto-Generate d Referral 10/16/2022 11/15/2023 1 1 [facility] Summary Purpose Family History No Family History [...] FoundDocuments on File Type Date Recorded 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 Advance Directive(s) 06/02/2017 1:46 PM [...] Documents on File Type Date Recorded 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 Advance Directive(s) 05/01/2021 6:25 PM [...] Documents on File Type Date Recorded 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 Advance Directive(s) 05/01/2021 6:25 PM [...] Documents on File Type Date Recorded 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 Advance Directive(s) 06/02/2017 1:46 PM [...] CONSULT TO SLEEP MEDICINE - ADULT OFFICE/OUTPATIENT REPLACED BY [facility] MDM [id number] MINUTES Ulises Ramos DO [address] [address] Referral ID Status Reason Start Date Expiration Date Visits Requested Visits Authorized [id number] Authorized PCP Requested Referral 10/25/2021 10/25/2022 1 1 Specialty Diagnoses / Procedures Referred By Contac t Referred To Contact Diagnoses Chronic diarrhea Ulises Ramos DO [address] [place] [address] Referral ID Status Reason Start Date Expiration Date V isits Requested Visits Authorized [id number] Pending Review 1 1 Specialty Diagnoses / Procedures Referred By Contac t Referred To Contact [facility] Diagnoses Muscular deconditioning Procedures CONSULT TO PHYSICAL THERAPY PHYSICAL THERAPY EVALUATION HIGH COMPLEX 45 MINS Ulises Ramos DO [address] [place] [address] [facility] [address] [address] Referral ID Status Reason Start Date Expiration Date Visits Requested Visits Authorized [id number] Authorized PCP Requested Referral Auto-Generate d Referral 02/20/2022 02/20/2023 99 99 Specialty Diagnoses / Procedures Referred By Contac [place] [address] [place], [place] [address] Referral ID Status Reason Start Date Expiration Date V isits Requested Visits Authorized [id number] Pending Review 1 1 Specialty Diagnoses / Procedures Referred By Contac t Referred To Contact [facility] Diagnoses Physical deconditioning Procedures PT REHAB FOLLOW UP ORDER THERAPEUTIC EXERCISES RE, EA 15 MIN. Pt [facility] [address] [place] [address] [facility] [place] [address] Referral ID Status Reason Start Date Expiration Date Visits Requested Visits Authorized [id number] Pending Review PCP Requested Referral Auto-Generate d Referral 05/31/2022 08/29/2022 1 1 Specialty Diagnoses / Procedures Referred By Contac t Referred To Contact Pulmonary and Critical Care Medicine Diagnoses Chronic obstructive pulmonary disease with acute exacerbation (HCC) Procedures CONSULT TO PULM/CRITICAL CARE OFFICE/OUTPATIENT [facility] 60-74 MINUTES Ulises Ramos DO [address] [place] [address] Referral ID Status Reason Start Date Expiration Date Visits Requested Visits Authorized [id number] Authorized PCP Requested Referral 07/25/2022 07/25/2023 1 1 Specialty Diagnoses / Procedures Referred By Contac t Referred To Contact CT IMAGING Diagnoses Chronic cough Procedures CT CHEST W IVCON DIAGNOSTIC COMPUTED TOMOGRAPHY THORAX W/CONTRAST Ulises Ramos DO [address] [place] [address] Ct Imaging Referral ID Status Reason Start Date Expiration Date V isits Requested Visits Authorized [id number] Closed Auto-Generate d Referral 07/30/2022 08/29/2023 1 1 Specialty Diagnoses / Procedures Referred By Contac t Referred To Contact Diagnoses CIRA (obstructive sleep apnea) Ulises Ramos, [address] [place] [address] Referral ID Status Reason Start Date Expiration Date V isits Requested Visits Authorized [id number] Pending Review 1 1 Specialty Diagnoses / Procedures Referred By Contac t Referred To Contact Psychology Diagnoses Renal cancer, right (HCC) Essential thrombocythemia (HCC) Procedures CONSULT TO PSYCHOLOGY OFFICE/OUTPATIENT [facility] 60-74 MINUTES Halle Dale MD [address] [place] [address] Referral ID Status Reason Start Date Expiration Date Visits Requested Visits Authorized [id number] Pending Review PCP Requested Referral 11/24/2022 11/24/2023 1 1 Specialty Diagnoses / Procedures Referred By Contac t Referred To Contact CT IMAGING Diagnoses Renal cancer, right (HCC) Procedures CT CHEST WO IVCON DIAGNOSTIC COMPUTED TOMOGRAPHY THORAX W/O CNTRST Halle Dale MD [address] [place] [address] Ct Imaging Referral ID Status Reason Start Date Expiration Date Visits Requested Visits Authorized [id number] Pending Review Auto-Generat ed Referral 3 12/24/2023 1 1 Specialty Diagnoses / Procedures Referred By Contac t Referred To Contact [facility] Diagnoses Severe muscle deconditioning Procedures CONSULT TO PHYSICAL THERAPY PHYSICAL THERAPY EVALUATION HIGH COMPLEX 45 MINS Nakul Gallegos MD [address] [address] [facility] [place] [address] [place] [id number] Referral ID Status Reason Start Date Expiration Date Visits Requested Visits Authorized [id number] Authorized PCP Requested Referral Auto-Generate d Referral 12/13/2022 12/13/2023 99 99 Specialty Diagnoses / Procedures Referred By Contac t Referred To Contact Urology Diagnoses Primary insomnia Procedures CONSULT TO UROLOGY OFFICE/OUTPATIENT REPLACED BY [facility] 60-74 MINUTES Deo Hyatt MD [address] [place] [address] Referral ID Status Reason Start Date Expiration Date Visits Requested Visits Authorized [id number] Authorized PCP Requested Referral 12/13/2022 12/13/2023 1 1 Specialty Diagnoses / Procedures Referred By Contac t Referred To Contact Diagnoses Essential thrombocythemia (HCC) Procedures CONSULT TO [facility] Halle Dale MD [address] [place] [address] [address] [place] [id number] Referral ID Status Reason Start Date Expiration Date Visits Requested Visits Authorized [id number] Pending Review PCP Requested Referral 12/18/2022 03/18/2023 1 1 Specialty Diagnoses / Procedures Referred By Contac t Referred To Contact Diagnoses Atrial fibrillation, unspecified type (CMS/HCC) Procedures ECG 12 lead (Clinic Performed) Melinda Kraft MD [address] [place] [address] Referral ID Status Reason Start Date Expiration Date V isits Requested Visits Authorized [id number] Pending Review 02/20/2023 02/20/2024 1 1 Medications [...] section and content) DATE CREATED AUTHOR 10/01/2017 [facility] DATE CREATED AUTHOR AUTHOR'S ORGANIZ ATION 02/03/2021 [facility] DATE CREATED AUTHOR AUTHOR'S ORGANIZ ATION 02/04/2022 [facility] DATE CREATED AUTHOR AUTHOR'S ORGANIZ ATION 01/23/2023 [facility] DATE CREATED AUTHOR AUTHOR'S ORGANIZ ATION 02/22/2023 [facility] DATE CREATED AUTHOR AUTHOR'S ORGANIZ ATION 05/06/2023 [facility] DATE CREATED AUTHOR AUTHOR'S ORGANIZ ATION 05/10/2023 [facility] ([place]) DATE CREATED AUTHOR AUTHOR'S ORGANIZ ATION 08/27/2023 [facility] DATE CREATED AUTHOR AUTHOR'S ORGANIZ ATION 12/07/2023 [facility] DATE CREATED AUTHOR AUTHOR'S ORGANIZ ATION 02/13/2024 [facility] DATE CREATED AUTHOR AUTHOR'S ORGANIZ ATION 05/05/2024 [facility] DATE CREATED AUTHOR AUTHOR'S ORGANIZ ATION 06/04/2024 [facility] DATE CREATED AUTHOR AUTHOR'S ORGANIZ ATION 10/13/2024 [facility] Source Comments (unrecognize d section and content) In the event this informatio n is protected by the Federal Confidentiality of Alcohol and Drug Abuse Patient Records regulations: The Federal rules restrict any use of the information to criminally investigate or prosecute any alcohol or drug abuse patient.[facility] the event this information is protected by the Federal Confidentiality of Alcohol and Drug Abuse Patient Records regulations: The Federal rules restrict any use of the information to criminally investigate or prosecute any alcohol or drug abuse patient.[facility] CenterIn the event this information is protected by the Federal Confidentiality of Alcohol and Drug Abuse Patient Records regulations: The Federal rules restrict any use of the information to criminally investigate or prosecute any alcohol or drug abuse patient.[facility] CenterIn the event this information is protected by the Federal Confidentiality of Alcohol and Drug Abuse Patient Records regulations: The Federal rules restrict any use of the information to criminally investigate or prosecute any alcohol or drug abuse patient.[facility] CenterIn the event this information is protected by the Federal Confidentiality of Alcohol and Drug Abuse Patient Records regulations: The Federal rules restrict any use of the information to criminally investigate or prosecute any alcohol or drug abuse patient.[facility] CenterIn the event this information is protected by the Federal Confidentiality of Alcohol and Drug Abuse Patient Records regulations: The Federal rules restrict any use of the information to criminally investigate or prosecute any alcohol or drug abuse patient.[facility] CenterIn the event this information is protected by the Federal Confidentiality of Alcohol and Drug Abuse Patient Records regulations: The Federal rules restrict any use of the information to criminally investigate or prosecute any alcohol or drug abuse patient.[facility] CenterIn the event this information is protected by the Federal Confidentiality of Alcohol and Drug Abuse Patient Records regulations: The Federal rules restrict any use of the information to criminally investigate or prosecute any alcohol or drug abuse patient.[facility] CenterIn the event this information is protected by the Federal Confidentiality of Alcohol and Drug Abuse Patient Records regulations: The Federal rules restrict any use of the information to criminally investigate or prosecute any alcohol or drug abuse patient.[facility] CenterIn the event this information is protected by the Federal Confidentiality of Alcohol and Drug Abuse Patient Records regulations: The Federal rules restrict any use of the information to criminally investigate or prosecute any alcohol or drug abuse patient.[facility] CenterIn the event this information is protected by the Federal Confidentiality of Alcohol and Drug Abuse Patient Records regulations: The Federal rules restrict any use of the information to criminally investigate or prosecute any alcohol or drug abuse patient.[facility] CenterIn the event this information is protected by the Federal Confidentiality of Alcohol and Drug Abuse Patient Records regulations: The Federal rules restrict any use of the information to criminally investigate or prosecute any alcohol or drug abuse patient.[facility] CenterIn the event this information is protected by the Federal Confidentiality of Alcohol and Drug Abuse Patient Records regulations: The Federal rules restrict any use of the information to criminally investigate or prosecute any alcohol or drug abuse patient.[facility] CenterIn the event this information is protected by the Federal Confidentiality of Alcohol and Drug Abuse Patient Records regulations: The Federal rules restrict any use of the information to criminally investigate or prosecute any alcohol or drug abuse patient.[facility] CenterIn the event this information is protected by the Federal Confidentiality of Alcohol and Drug Abuse Patient Records regulations: The Federal rules restrict any use of the information to criminally investigate or prosecute any alcohol or drug abuse patient.[facility] CenterIn the event this information is protected by the Federal Confidentiality of Alcohol and Drug Abuse Patient Records regulations: The Federal rules restrict any use of the information to criminally investigate or prosecute any alcohol or drug abuse patient.[facility] the event this information is protected by the Federal Confidentiality of Alcohol and Drug Abuse Patient Records regulations: The Federal rules restrict any use of the information to criminally investigate or prosecute any alcohol or drug abuse patient.[facility] CenterIn the event this information is protected by the Federal Confidentiality of Alcohol and Drug Abuse Patient Records regulations: The Federal rules restrict any use of the information to criminally investigate or prosecute any alcohol or drug abuse patient.[facility] CenterIn the event this information is protected by the Federal Confidentiality of Alcohol and Drug Abuse Patient Records regulations: The Federal rules restrict any use of the information to criminally investigate or prosecute any alcohol or drug abuse patient.[facility] CenterIn the event this information is protected by the Federal Confidentiality of Alcohol and Drug Abuse Patient Records regulations: The Federal rules restrict any use of the information to criminally investigate or prosecute any alcohol or drug abuse patient.[facility] CenterIn the event this information is protected by the Federal Confidentiality of Alcohol and Drug Abuse Patient Records regulations: The Federal rules restrict any use of the information to criminally investigate or prosecute any alcohol or drug abuse patient.[facility] CenterIn the event this information is protected by the Federal Confidentiality of Alcohol and Drug Abuse Patient Records regulations: The Federal rules restrict any use of the information to criminally investigate or prosecute any alcohol or drug abuse patient.[facility] CenterIn the event this information is protected by the Federal Confidentiality of Alcohol and Drug Abuse Patient Records regulations: The Federal rules restrict any use of the information to criminally investigate or prosecute any alcohol or drug abuse patient.[facility] CenterIn the event this information is protected by the Federal Confidentiality of Alcohol and Drug Abuse Patient Records regulations: The Federal rules restrict any use of the information to criminally investigate or prosecute any alcohol or drug abuse patient.[facility] CenterIn the event this information is protected by the Federal Confidentiality of Alcohol and Drug Abuse Patient Records regulations: The Federal rules restrict any use of the information to criminally investigate or prosecute any alcohol or drug abuse patient.[facility] CenterIn the event this information is protected by the Federal Confidentiality of Alcohol and Drug Abuse Patient Records regulations: The Federal rules restrict any use of the information to criminally investigate or prosecute any alcohol or drug abuse patient.[facility] CenterIn the event this information is protected by the Federal Confidentiality of Alcohol and Drug Abuse Patient Records regulations: The Federal rules restrict any use of the information to criminally investigate or prosecute any alcohol or drug abuse patient.[facility] CenterIn the event this information is protected by the Federal Confidentiality of Alcohol and Drug Abuse Patient Records regulations: The Federal rules restrict any use of the information to criminally investigate or prosecute any alcohol or drug abuse patient.[facility] CenterIn the event this information is protected by the Federal Confidentiality of Alcohol and Drug Abuse Patient Records regulations: The Federal rules restrict any use of the information to criminally investigate or prosecute any alcohol or drug abuse patient.[facility] CenterIn the event this information is protected by the Federal Confidentiality of Alcohol and Drug Abuse Patient Records regulations: The Federal rules restrict any use of the information to criminally investigate or prosecute any alcohol or drug abuse patient.[facility] CenterIn the event this information is protected by the Federal Confidentiality of Alcohol and Drug Abuse Patient Records regulations: The Federal rules restrict any use of the information to criminally investigate or prosecute any alcohol or drug abuse patient.[facility] CenterIn the event this information is protected by the Federal Confidentiality of Alcohol and Drug Abuse Patient Records regulations: The Federal rules restrict any use of the information to criminally investigate or prosecute any alcohol or drug abuse patient.[facility] CenterIn the event this information is protected by the Federal Confidentiality of Alcohol and Drug Abuse Patient Records regulations: The Federal rules restrict any use of the information to criminally investigate or prosecute any alcohol or drug abuse patient.[facility] CenterIn the event this information is protected by the Federal Confidentiality of Alcohol and Drug Abuse Patient Records regulations: The Federal rules restrict any use of the information to criminally investigate or prosecute any alcohol or drug abuse patient.[facility] CenterIn the event this information is protected by the Federal Confidentiality of Alcohol and Drug Abuse Patient Records regulations: The Federal rules restrict any use of the information to criminally investigate or prosecute any alcohol or drug abuse patient.[facility] CenterIn the event this information is protected by the Federal Confidentiality of Alcohol and Drug Abuse Patient Records regulations: The Federal rules restrict any use of the information to criminally investigate or prosecute any alcohol or drug abuse patient.[facility] CenterIn the event this information is protected by the Federal Confidentiality of Alcohol and Drug Abuse Patient Records regulations: The Federal rules restrict any use of the information to criminally investigate or prosecute any alcohol or drug abuse patient.[facility] CenterIn the event this information is protected by the Federal Confidentiality of Alcohol and Drug Abuse Patient Records regulations: The Federal rules restrict any use of the information to criminally investigate or prosecute any alcohol or drug abuse patient.[facility] CenterIn the event this information is protected by the Federal Confidentiality of Alcohol and Drug Abuse Patient Records regulations: The Federal rules restrict any use of the information to criminally investigate or prosecute any alcohol or drug abuse patient.[facility] CenterIn the event this information is protected by the Federal Confidentiality of Alcohol and Drug Abuse Patient Records regulations: The Federal rules restrict any use of the information to criminally investigate or prosecute any alcohol or drug abuse patient.[facility] CenterIn the event this information is protected by the Federal Confidentiality of Alcohol and Drug Abuse Patient Records regulations: The Federal rules restrict any use of the information to criminally investigate or prosecute any alcohol or drug abuse patient.[facility] CenterIn the event this information is protected by the Federal Confidentiality of Alcohol and Drug Abuse Patient Records regulations: The Federal rules restrict any use of the information to criminally investigate or prosecute any alcohol or drug abuse patient.[facility] CenterIn the event this information is protected by the Federal Confidentiality of Alcohol and Drug Abuse Patient Records regulations: The Federal rules restrict any use of the information to criminally investigate or prosecute any alcohol or drug abuse patient.[facility] CenterIn the event this information is protected by the Federal Confidentiality of Alcohol and Drug Abuse Patient Records regulations: The Federal rules restrict any use of the information to criminally investigate or prosecute any alcohol or drug abuse patient.[facility] CenterIn the event this information is protected by the Federal Confidentiality of Alcohol and Drug Abuse Patient Records regulations: The Federal rules restrict any use of the information to criminally investigate or prosecute any alcohol or drug abuse patient.[facility] CenterIn the event this information is protected by the Federal Confidentiality of Alcohol and Drug Abuse Patient Records regulations: The Federal rules restrict any use of the information to criminally investigate or prosecute any alcohol or drug abuse patient.[facility] CenterIn the event this information is protected by the Federal Confidentiality of Alcohol and Drug Abuse Patient Records regulations: The Federal rules restrict any use of the information to criminally investigate or prosecute any alcohol or drug abuse patient.[facility] CenterIn the event this information is protected by the Federal Confidentiality of Alcohol and Drug Abuse Patient Records regulations: The Federal rules restrict any use of the information to criminally investigate or prosecute any alcohol or drug abuse patient.[facility] CenterIn the event this information is protected by the Federal Confidentiality of Alcohol and Drug Abuse Patient Records regulations: The Federal rules restrict any use of the information to criminally investigate or prosecute any alcohol or drug abuse patient.[facility] CenterIn the event this information is protected by the Federal Confidentiality of Alcohol and Drug Abuse Patient Records regulations: The Federal rules restrict any use of the information to criminally investigate or prosecute any alcohol or drug abuse patient.[facility] CenterIn the event this information is protected by the Federal Confidentiality of Alcohol and Drug Abuse Patient Records regulations: The Federal rules restrict any use of the information to criminally investigate or prosecute any alcohol or drug abuse patient.[facility] CenterIn the event this information is protected by the Federal Confidentiality of Alcohol and Drug Abuse Patient Records regulations: The Federal rules restrict any use of the information to criminally investigate or prosecute any alcohol or drug abuse patient.[facility] CenterIn the event this information is protected by the Federal Confidentiality of Alcohol and Drug Abuse Patient Records regulations: The Federal rules restrict any use of the information to criminally investigate or prosecute any alcohol or drug abuse patient.[facility] CenterIn the event this information is protected by the Federal Confidentiality of Alcohol and Drug Abuse Patient Records regulations: The Federal rules restrict any use of the information to criminally investigate or prosecute any alcohol or drug abuse patient.[facility] CenterIn the event this information is protected by the Federal Confidentiality of Alcohol and Drug Abuse Patient Records regulations: The Federal rules restrict any use of the information to criminally investigate or prosecute any alcohol or drug abuse patient.[facility] CenterIn the event this information is protected by the Federal Confidentiality of Alcohol and Drug Abuse Patient Records regulations: The Federal rules restrict any use of the information to criminally investigate or prosecute any alcohol or drug abuse patient.[facility] CenterIn the event this information is protected by the Federal Confidentiality of Alcohol and Drug Abuse Patient Records regulations: The Federal rules restrict any use of the information to criminally investigate or prosecute any alcohol or drug abuse patient.[facility] CenterIn the event this information is protected by the Federal Confidentiality of Alcohol and Drug Abuse Patient Records regulations: The Federal rules restrict any use of the information to criminally investigate or prosecute any alcohol or drug abuse patient.[facility] CenterIn the event this information is protected by the Federal Confidentiality of Alcohol and Drug Abuse Patient Records regulations: The Federal rules restrict any use of the information to criminally investigate or prosecute any alcohol or drug abuse patient.[facility] CenterIn the event this information is protected by the Federal Confidentiality of Alcohol and Drug Abuse Patient Records regulations: The Federal rules restrict any use of the information to criminally investigate or prosecute any alcohol or drug abuse patient.[facility] CenterIn the event this information is protected by the Federal Confidentiality of Alcohol and Drug Abuse Patient Records regulations: The Federal rules restrict any use of the information to criminally investigate or prosecute any alcohol or drug abuse patient.[facility] [facility] CenterIn the event this information is protected by the Federal Confidentiality of Alcohol and Drug Abuse Patient Records regulations: The Federal rules restrict any use of the information to criminally investigate or prosecute any alcohol or drug abuse patient.[facility] the event this information is protected by the Federal Confidentiality of Alcohol and Drug Abuse Patient Records regulations: The Federal rules restrict any use of the information to criminally investigate or prosecute any alcohol or drug abuse patient.[facility] CenterIn the event this information is protected by the Federal Confidentiality of Alcohol and Drug Abuse Patient Records regulations: The Federal rules restrict any use of the information to criminally investigate or prosecute any alcohol or drug abuse patient.[facility] CenterIn the event this information is protected by the Federal Confidentiality of Alcohol and Drug Abuse Patient Records regulations: The Federal rules restrict any use of the information to criminally investigate or prosecute any alcohol or drug abuse patient.[facility] CenterIn the event this information is protected by the Federal Confidentiality of Alcohol and Drug Abuse Patient Records regulations: The Federal rules restrict any use of the information to criminally investigate or prosecute any alcohol or drug abuse patient.[facility] the event this information is protected by the Federal Confidentiality of Alcohol and Drug Abuse Patient Records regulations: The Federal rules restrict any use of the information to criminally investigate or prosecute any alcohol or drug abuse patient.[facility] CenterIn the event this information is protected by the Federal Confidentiality of Alcohol and Drug Abuse Patient Records regulations: The Federal rules restrict any use of the information to criminally investigate or prosecute any alcohol or drug abuse patient.[facility] CenterIn the event this information is protected by the Federal Confidentiality of Alcohol and Drug Abuse Patient Records regulations: The Federal rules restrict any use of the information to criminally investigate or prosecute any alcohol or drug abuse patient.[facility] CenterIn the event this information is protected by the Federal Confidentiality of Alcohol and Drug Abuse Patient Records regulations: The Federal rules restrict any use of the information to criminally investigate or prosecute any alcohol or drug abuse patient.[facility] CenterIn the event this information is protected by the Federal Confidentiality of Alcohol and Drug Abuse Patient Records regulations: The Federal rules restrict any use of the information to criminally investigate or prosecute any alcohol or drug abuse patient.[facility] CenterIn the event this information is protected by the Federal Confidentiality of Alcohol and Drug Abuse Patient Records regulations: The Federal rules restrict any use of the information to criminally investigate or prosecute any alcohol or drug abuse patient.[facility] CenterIn the event this information is protected by the Federal Confidentiality of Alcohol and Drug Abuse Patient Records regulations: The Federal rules restrict any use of the information to criminally investigate or prosecute any alcohol or drug abuse patient.[facility] CenterIn the event this information is protected by the Federal Confidentiality of Alcohol and Drug Abuse Patient Records regulations: The Federal rules restrict any use of the information to criminally investigate or prosecute any alcohol or drug abuse patient.[facility] CenterIn the event this information is protected by the Federal Confidentiality of Alcohol and Drug Abuse Patient Records regulations: The Federal rules restrict any use of the information to criminally investigate or prosecute any alcohol or drug abuse patient.[facility] CenterIn the event this information is protected by the Federal Confidentiality of Alcohol and Drug Abuse Patient Records regulations: The Federal rules restrict any use of the information to criminally investigate or prosecute any alcohol or drug abuse patient.[facility] CenterIn the event this information is protected by the Federal Confidentiality of Alcohol and Drug Abuse Patient Records regulations: The Federal rules restrict any use of the information to criminally investigate or prosecute any alcohol or drug abuse patient.[facility] CenterIn the event this information is protected by the Federal Confidentiality of Alcohol and Drug Abuse Patient Records regulations: The Federal rules restrict any use of the information to criminally investigate or prosecute any alcohol or drug abuse patient.[facility] CenterIn the event this information is protected by the Federal Confidentiality of Alcohol and Drug Abuse Patient Records regulations: The Federal rules restrict any use of the information to criminally investigate or prosecute any alcohol or drug abuse patient.[facility] CenterIn the event this information is protected by the Federal Confidentiality of Alcohol and Drug Abuse Patient Records regulations: The Federal rules restrict any use of the information to criminally investigate or prosecute any alcohol or drug abuse patient.[facility] CenterIn the event this information is protected by the Federal Confidentiality of Alcohol and Drug Abuse Patient Records regulations: The Federal rules restrict any use of the information to criminally investigate or prosecute any alcohol or drug abuse patient.[facility] CenterIn the event this information is protected by the Federal Confidentiality of Alcohol and Drug Abuse Patient Records regulations: The Federal rules restrict any use of the information to criminally investigate or prosecute any alcohol or drug abuse patient.[facility] CenterIn the event this information is protected by the Federal Confidentiality of Alcohol and Drug Abuse Patient Records regulations: The Federal rules restrict any use of the information to criminally investigate or prosecute any alcohol or drug abuse patient.[facility] CenterIn the event this information is protected by the Federal Confidentiality of Alcohol and Drug Abuse Patient Records regulations: The Federal rules restrict any use of the information to criminally investigate or prosecute any alcohol or drug abuse patient.[facility] CenterIn the event this information is protected by the Federal Confidentiality of Alcohol and Drug Abuse Patient Records regulations: The Federal rules restrict any use of the information to criminally investigate or prosecute any alcohol or drug abuse patient.[facility] CenterIn the event this information is protected by the Federal Confidentiality of Alcohol and Drug Abuse Patient Records regulations: The Federal rules restrict any use of the information to criminally investigate or prosecute any alcohol or drug abuse patient.[facility] CenterIn the event this information is protected by the Federal Confidentiality of Alcohol and Drug Abuse Patient Records regulations: The Federal rules restrict any use of the information to criminally investigate or prosecute any alcohol or drug abuse patient.[facility] CenterIn the event this information is protected by the Federal Confidentiality of Alcohol and Drug Abuse Patient Records regulations: The Federal rules restrict any use of the information to criminally investigate or prosecute any alcohol or drug abuse patient.[facility] CenterIn the event this information is protected by the Federal Confidentiality of Alcohol and Drug Abuse Patient Records regulations: The Federal rules restrict any use of the information to criminally investigate or prosecute any alcohol or drug abuse patient.[facility] CenterIn the event this information is protected by the Federal Confidentiality of Alcohol and Drug Abuse Patient Records regulations: The Federal rules restrict any use of the information to criminally investigate or prosecute any alcohol or drug abuse patient.[facility] CenterIn the event this information is protected by the Federal Confidentiality of Alcohol and Drug Abuse Patient Records regulations: The Federal rules restrict any use of the information to criminally investigate or prosecute any alcohol or drug abuse patient.[facility] CenterIn the event this information is protected by the Federal Confidentiality of Alcohol and Drug Abuse Patient Records regulations: The Federal rules restrict any use of the information to criminally investigate or prosecute any alcohol or drug abuse patient.[facility] CenterIn the event this information is protected by the Federal Confidentiality of Alcohol and Drug Abuse Patient Records regulations: The Federal rules restrict any use of the information to criminally investigate or prosecute any alcohol or drug abuse patient.[facility] CenterIn the event this information is protected by the Federal Confidentiality of Alcohol and Drug Abuse Patient Records regulations: The Federal rules restrict any use of the information to criminally investigate or prosecute any alcohol or drug abuse patient.[facility] CenterIn the event this information is protected by the Federal Confidentiality of Alcohol and Drug Abuse Patient Records regulations: The Federal rules restrict any use of the information to criminally investigate or prosecute any alcohol or drug abuse patient.[facility] CenterIn the event this information is protected by the Federal Confidentiality of Alcohol and Drug Abuse Patient Records regulations: The Federal rules restrict any use of the information to criminally investigate or prosecute any alcohol or drug abuse patient.[facility] CenterIn the event this information is protected by the Federal Confidentiality of Alcohol and Drug Abuse Patient Records regulations: The Federal rules restrict any use of the information to criminally investigate or prosecute any alcohol or drug abuse patient.[facility] CenterIn the event this information is protected by the Federal Confidentiality of Alcohol and Drug Abuse Patient Records regulations: The Federal rules restrict any use of the information to criminally investigate or prosecute any alcohol or drug abuse patient.[facility]In the event this information is protected by the Federal Confidentiality of Alcohol and Drug Abuse Patient Records regulations: The Federal rules restrict any use of the information to criminally investigate or prosecute any alcohol or drug abuse patient.[facility]In the event this information is protected by the Federal Confidentiality of Alcohol and Drug Abuse Patient Records regulations: The Federal rules restrict any use of the information to criminally investigate or prosecute any alcohol or drug abuse patient.[facility] CenterIn the event this information is protected by the Federal Confidentiality of Alcohol and Drug Abuse Patient Records regulations: The Federal rules restrict any use of the information to criminally investigate or prosecute any alcohol or drug abuse patient.[facility]In the event this information is protected by the Federal Confidentiality of Alcohol and Drug Abuse Patient Records regulations: The Federal rules restrict any use of the information to criminally investigate or prosecute any alcohol or drug abuse patient.[facility] CenterIn the event this information is protected by the Federal Confidentiality of Alcohol and Drug Abuse Patient Records regulations: The Federal rules restrict any use of the information to criminally investigate or prosecute any alcohol or drug abuse patient.[facility]In the event this information is protected by the Federal Confidentiality of Alcohol and Drug Abuse Patient Records regulations: The Federal rules restrict any use of the information to criminally investigate or prosecute any alcohol or drug abuse patient.[facility]In the event this information is protected by the Federal Confidentiality of Alcohol and Drug Abuse Patient Records regulations: The Federal rules restrict any use of the information to criminally investigate or prosecute any alcohol or drug abuse patient.[facility]In the event this information is protected by the Federal Confidentiality of Alcohol and Drug Abuse Patient Records regulations: The Federal rules restrict any use of the information to criminally investigate or prosecute any alcohol or drug abuse patient.[facility]In the event this information is protected by the Federal Confidentiality of Alcohol and Drug Abuse Patient Records regulations: The Federal rules restrict any use of the information to criminally investigate or prosecute any alcohol or drug abuse patient.[facility] CenterIn the event this information is protected by the Federal Confidentiality of Alcohol and Drug Abuse Patient Records regulations: The Federal rules restrict any use of the information to criminally investigate or prosecute any alcohol or drug abuse patient.[facility]In the event this information is protected by the Federal Confidentiality of Alcohol and Drug Abuse Patient Records regulations: The Federal rules restrict any use of the information to criminally investigate or prosecute any alcohol or drug abuse patient.[facility]In the event this information is protected by the Federal Confidentiality of Alcohol and Drug Abuse Patient Records regulations: The Federal rules restrict any use of the information to criminally investigate or prosecute any alcohol or drug abuse patient.[facility] CenterIn the event this information is protected by the Federal Confidentiality of Alcohol and Drug Abuse Patient Records regulations: The Federal rules restrict any use of the information to criminally investigate or prosecute any alcohol or drug abuse patient.[facility]In the event this information is protected by the Federal Confidentiality of Alcohol and Drug Abuse Patient Records regulations: The Federal rules restrict any use of the information to criminally investigate or prosecute any alcohol or drug abuse patient.[facility] CenterIn the event this information is protected by the Federal Confidentiality of Alcohol and Drug Abuse Patient Records regulations: The Federal rules restrict any use of the information to criminally investigate or prosecute any alcohol or drug abuse patient.[facility] CenterIn the event this information is protected by the Federal Confidentiality of Alcohol and Drug Abuse Patient Records regulations: The Federal rules restrict any use of the information to criminally investigate or prosecute any alcohol or drug abuse patient.[facility]In the event this information is protected by the Federal Confidentiality of Alcohol and Drug Abuse Patient Records regulations: The Federal rules restrict any use of the information to criminally investigate or prosecute any alcohol or drug abuse patient.[facility] CenterIn the event this information is protected by the Federal Confidentiality of Alcohol and Drug Abuse Patient Records regulations: The Federal rules restrict any use of the information to criminally investigate or prosecute any alcohol or drug abuse patient.[facility] the event this information is protected by the Federal Confidentiality of Alcohol and Drug Abuse Patient Records regulations: The Federal rules restrict any use of the information to criminally investigate or prosecute any alcohol or drug abuse patient.[facility] CenterIn the event this information is protected by the Federal Confidentiality of Alcohol and Drug Abuse Patient Records regulations: The Federal rules restrict any use of the information to criminally investigate or prosecute any alcohol or drug abuse patient.[facility]In the event this information is protected by the Federal Confidentiality of Alcohol and Drug Abuse Patient Records regulations: The Federal rules restrict any use of the information to criminally investigate or prosecute any alcohol or drug abuse patient.[facility]In the event this information is protected by the Federal Confidentiality of Alcohol and Drug Abuse Patient Records regulations: The Federal rules restrict any use of the information to criminally investigate or prosecute any alcohol or drug abuse patient.[facility]In the event this information is protected by the Federal Confidentiality of Alcohol and Drug Abuse Patient Records regulations: The Federal rules restrict any use of the information to criminally investigate or prosecute any alcohol or drug abuse patient.[facility]In the event this information is protected by the Federal Confidentiality of Alcohol and Drug Abuse Patient Records regulations: The Federal rules restrict any use of the information to criminally investigate or prosecute any alcohol or drug abuse patient.[facility]In the event this information is protected by the Federal Confidentiality of Alcohol and Drug Abuse Patient Records regulations: The Federal rules restrict any use of the information to criminally investigate or prosecute any alcohol or drug abuse patient.[facility]In the event this information is protected by the Federal Confidentiality of Alcohol and Drug Abuse Patient Records regulations: The Federal rules restrict any use of the information to criminally investigate or prosecute any alcohol or drug abuse patient.[facility]In the event this information is protected by the Federal Confidentiality of Alcohol and Drug Abuse Patient Records regulations: The Federal rules restrict any use of the information to criminally investigate or prosecute any alcohol or drug abuse patient.[facility]In the event this information is protected by the Federal Confidentiality of Alcohol and Drug Abuse Patient Records regulations: The Federal rules restrict any use of the information to criminally investigate or prosecute any alcohol or drug abuse patient.[facility]In the event this information is protected by the Federal Confidentiality of Alcohol and Drug Abuse Patient Records regulations: The Federal rules restrict any use of the information to criminally investigate or prosecute any alcohol or drug abuse patient.[facility]In the event this information is protected by the Federal Confidentiality of Alcohol and Drug Abuse Patient Records regulations: The Federal rules restrict any use of the information to criminally investigate or prosecute any alcohol or drug abuse patient.[facility]In the event this information is protected by the Federal Confidentiality of Alcohol and Drug Abuse Patient Records regulations: The Federal rules restrict any use of the information to criminally investigate or prosecute any alcohol or drug abuse patient.[facility]In the event this information is protected by the Federal Confidentiality of Alcohol and Drug Abuse Patient Records regulations: The Federal rules restrict any use of the information to criminally investigate or prosecute any alcohol or drug abuse patient.[facility]In the event this information is protected by the Federal Confidentiality of Alcohol and Drug Abuse Patient Records regulations: The Federal rules restrict any use of the information to criminally investigate or prosecute any alcohol or drug abuse patient.[facility]In the event this information is protected by the Federal Confidentiality of Alcohol and Drug Abuse Patient Records regulations: The Federal rules restrict any use of the information to criminally investigate or prosecute any alcohol or drug abuse patient.[facility]In the event this information is protected by the Federal Confidentiality of Alcohol and Drug Abuse Patient Records regulations: The Federal rules restrict any use of the information to criminally investigate or prosecute any alcohol or drug abuse patient.[facility]In the event this information is protected by the Federal Confidentiality of Alcohol and Drug Abuse Patient Records regulations: The Federal rules restrict any use of the information to criminally investigate or prosecute any alcohol or drug abuse patient.[facility]In the event this information is protected by the Federal Confidentiality of Alcohol and Drug Abuse Patient Records regulations: The Federal rules restrict any use of the information to criminally investigate or prosecute any alcohol or drug abuse patient.[facility]In the event this information is protected by the Federal Confidentiality of Alcohol and Drug Abuse Patient Records regulations: The Federal rules restrict any use of the information to criminally investigate or prosecute any alcohol or drug abuse patient.[facility]In the event this information is protected by the Federal Confidentiality of Alcohol and Drug Abuse Patient Records regulations: The Federal rules restrict any use of the information to criminally investigate or prosecute any alcohol or drug abuse patient.[facility]In the event this information is protected by the Federal Confidentiality of Alcohol and Drug Abuse Patient Records regulations: The Federal rules restrict any use of the information to criminally investigate or prosecute any alcohol or drug abuse patient.[facility]In the event this information is protected by the Federal Confidentiality of Alcohol and Drug Abuse Patient Records regulations: The Federal rules restrict any use of the information to criminally investigate or prosecute any alcohol or drug abuse patient.[facility]In the event this information is protected by the Federal Confidentiality of Alcohol and Drug Abuse Patient Records regulations: The Federal rules restrict any use of the information to criminally investigate or prosecute any alcohol or drug abuse patient.[facility] CenterIn the event this information is protected by the Federal Confidentiality of Alcohol and Drug Abuse Patient Records regulations: The Federal rules restrict any use of the information to criminally investigate or prosecute any alcohol or drug abuse patient.[facility] CenterIn the event this information is protected by the Federal Confidentiality of Alcohol and Drug Abuse Patient Records regulations: The Federal rules restrict any use of the information to criminally investigate or prosecute any alcohol or drug abuse patient.[facility] CenterIn the event this information is protected by the Federal Confidentiality of Alcohol and Drug Abuse Patient Records regulations: The Federal rules restrict any use of the information to criminally investigate or prosecute any alcohol or drug abuse patient.[facility] CenterIn the event this information is protected by the Federal Confidentiality of Alcohol and Drug Abuse Patient Records regulations: The Federal rules restrict any use of the information to criminally investigate or prosecute any alcohol or drug abuse patient.[facility] CenterIn the event this information is protected by the Federal Confidentiality of Alcohol and Drug Abuse Patient Records regulations: The Federal rules restrict any use of the information to criminally investigate or prosecute any alcohol or drug abuse patient.[facility] CenterIn the event this information is protected by the Federal Confidentiality of Alcohol and Drug Abuse Patient Records regulations: The Federal rules restrict any use of the information to criminally investigate or prosecute any alcohol or drug abuse patient.[facility] CenterIn the event this information is protected by the Federal Confidentiality of Alcohol and Drug Abuse Patient Records regulations: The Federal rules restrict any use of the information to criminally investigate or prosecute any alcohol or drug abuse patient.[facility] CenterIn the event this information is protected by the Federal Confidentiality of Alcohol and Drug Abuse Patient Records regulations: The Federal rules restrict any use of the information to criminally investigate or prosecute any alcohol or drug abuse patient.[facility] CenterIn the event this information is protected by the Federal Confidentiality of Alcohol and Drug Abuse Patient Records regulations: The Federal rules restrict any use of the information to criminally investigate or prosecute any alcohol or drug abuse patient.[facility] CenterIn the event this information is protected by the Federal Confidentiality of Alcohol and Drug Abuse Patient Records regulations: The Federal rules restrict any use of the information to criminally investigate or prosecute any alcohol or drug abuse patient.[facility] CenterIn the event this information is protected by the Federal Confidentiality of Alcohol and Drug Abuse Patient Records regulations: The Federal rules restrict any use of the information to criminally investigate or prosecute any alcohol or drug abuse patient.[facility] CenterIn the event this information is protected by the Federal Confidentiality of Alcohol and Drug Abuse Patient Records regulations: The Federal rules restrict any use of the information to criminally investigate or prosecute any alcohol or drug abuse patient.[facility] CenterIn the event this information is protected by the Federal Confidentiality of Alcohol and Drug Abuse Patient Records regulations: The Federal rules restrict any use of the information to criminally investigate or prosecute any alcohol or drug abuse patient.[facility] CenterIn the event this information is protected by the Federal Confidentiality of Alcohol and Drug Abuse Patient Records regulations: The Federal rules restrict any use of the information to criminally investigate or prosecute any alcohol or drug abuse patient.[facility] CenterIn the event this information is protected by the Federal Confidentiality of Alcohol and Drug Abuse Patient Records regulations: The Federal rules restrict any use of the information to criminally investigate or prosecute any alcohol or drug abuse patient.[facility] CenterIn the event this information is protected by the Federal Confidentiality of Alcohol and Drug Abuse Patient Records regulations: The Federal rules restrict any use of the information to criminally investigate or prosecute any alcohol or drug abuse patient.[facility] CenterIn the event this information is protected by the Federal Confidentiality of Alcohol and Drug Abuse Patient Records regulations: The Federal rules restrict any use of the information to criminally investigate or prosecute any alcohol or drug abuse patient.[facility] CenterIn the event this information is protected by the Federal Confidentiality of Alcohol and Drug Abuse Patient Records regulations: The Federal rules restrict any use of the information to criminally investigate or prosecute any alcohol or drug abuse patient.[facility] CenterIn the event this information is protected by the Federal Confidentiality of Alcohol and Drug Abuse Patient Records regulations: The Federal rules restrict any use of the information to criminally investigate or prosecute any alcohol or drug abuse patient.[facility] CenterIn the event this information is protected by the Federal Confidentiality of Alcohol and Drug Abuse Patient Records regulations: The Federal rules restrict any use of the information to criminally investigate or prosecute any alcohol or drug abuse patient.[facility] CenterIn the event this information is protected by the Federal Confidentiality of Alcohol and Drug Abuse Patient Records regulations: The Federal rules restrict any use of the information to criminally investigate or prosecute any alcohol or drug abuse patient.[facility] CenterIn the event this information is protected by the Federal Confidentiality of Alcohol and Drug Abuse Patient Records regulations: The Federal rules restrict any use of the information to criminally investigate or prosecute any alcohol or drug abuse patient.[facility] CenterIn the event this information is protected by the Federal Confidentiality of Alcohol and Drug Abuse Patient Records regulations: The Federal rules restrict any use of the information to criminally investigate or prosecute any alcohol or drug abuse patient.[facility] CenterIn the event this information is protected by the Federal Confidentiality of Alcohol and Drug Abuse Patient Records regulations: The Federal rules restrict any use of the information to criminally investigate or prosecute any alcohol or drug abuse patient.[facility] CenterIn the event this information is protected by the Federal Confidentiality of Alcohol and Drug Abuse Patient Records regulations: The Federal rules restrict any use of the information to criminally investigate or prosecute any alcohol or drug abuse patient.[facility] CenterIn the event this information is protected by the Federal Confidentiality of Alcohol and Drug Abuse Patient Records regulations: The Federal rules restrict any use of the information to criminally investigate or prosecute any alcohol or drug abuse patient.[facility] the event this information is protected by the Federal Confidentiality of Alcohol and Drug Abuse Patient Records regulations: The Federal rules restrict any use of the information to criminally investigate or prosecute any alcohol or drug abuse patient.[facility] CenterIn the event this information is protected by the Federal Confidentiality of Alcohol and Drug Abuse Patient Records regulations: The Federal rules restrict any use of the information to criminally investigate or prosecute any alcohol or drug abuse patient.[facility] CenterIn the event this information is protected by the Federal Confidentiality of Alcohol and Drug Abuse Patient Records regulations: The Federal rules restrict any use of the information to criminally investigate or prosecute any alcohol or drug abuse patient.[facility] CenterIn the event this information is protected by the Federal Confidentiality of Alcohol and Drug Abuse Patient Records regulations: The Federal rules restrict any use of the information to criminally investigate or prosecute any alcohol or drug abuse patient.[facility] CenterIn the event this information is protected by the Federal Confidentiality of Alcohol and Drug Abuse Patient Records regulations: The Federal rules restrict any use of the information to criminally investigate or prosecute any alcohol or drug abuse patient.[facility] CenterIn the event this information is protected by the Federal Confidentiality of Alcohol and Drug Abuse Patient Records regulations: The Federal rules restrict any use of the information to criminally investigate or prosecute any alcohol or drug abuse patient.[facility] CenterIn the event this information is protected by the Federal Confidentiality of Alcohol and Drug Abuse Patient Records regulations: The Federal rules restrict any use of the information to criminally investigate or prosecute any alcohol or drug abuse patient.[facility] CenterIn the event this information is protected by the Federal Confidentiality of Alcohol and Drug Abuse Patient Records regulations: The Federal rules restrict any use of the information to criminally investigate or prosecute any alcohol or drug abuse patient.[facility] CenterIn the event this information is protected by the Federal Confidentiality of Alcohol and Drug Abuse Patient Records regulations: The Federal rules restrict any use of the information to criminally investigate or prosecute any alcohol or drug abuse patient.[facility] CenterIn the event this information is protected by the Federal Confidentiality of Alcohol and Drug Abuse Patient Records regulations: The Federal rules restrict any use of the information to criminally investigate or prosecute any alcohol or drug abuse patient.[facility] CenterIn the event this information is protected by the Federal Confidentiality of Alcohol and Drug Abuse Patient Records regulations: The Federal rules restrict any use of the information to criminally investigate or prosecute any alcohol or drug abuse patient.[facility] CenterIn the event this information is protected by the Federal Confidentiality of Alcohol and Drug Abuse Patient Records regulations: The Federal rules restrict any use of the information to criminally investigate or prosecute any alcohol or drug abuse patient.[facility] CenterIn the event this information is protected by the Federal Confidentiality of Alcohol and Drug Abuse Patient Records regulations: The Federal rules restrict any use of the information to criminally investigate or prosecute any alcohol or drug abuse patient.[facility] CenterIn the event this information is protected by the Federal Confidentiality of Alcohol and Drug Abuse Patient Records regulations: The Federal rules restrict any use of the information to criminally investigate or prosecute any alcohol or drug abuse patient.[facility] CenterIn the event this information is protected by the Federal Confidentiality of Alcohol and Drug Abuse Patient Records regulations: The Federal rules restrict any use of the information to criminally investigate or prosecute any alcohol or drug abuse patient.[facility] CenterIn the event this information is protected by the Federal Confidentiality of Alcohol and Drug Abuse Patient Records regulations: The Federal rules restrict any use of the information to criminally investigate or prosecute any alcohol or drug abuse patient.[facility] CenterIn the event this information is protected by the Federal Confidentiality of Alcohol and Drug Abuse Patient Records regulations: The Federal rules restrict any use of the information to criminally investigate or prosecute any alcohol or drug abuse patient.[facility] CenterIn the event this information is protected by the Federal Confidentiality of Alcohol and Drug Abuse Patient Records regulations: The Federal rules restrict any use of the information to criminally investigate or prosecute any alcohol or drug abuse patient.[facility] CenterIn the event this information is protected by the Federal Confidentiality of Alcohol and Drug Abuse Patient Records regulations: The Federal rules restrict any use of the information to criminally investigate or prosecute any alcohol or drug abuse patient.[facility] CenterIn the event this information is protected by the Federal Confidentiality of Alcohol and Drug Abuse Patient Records regulations: The Federal rules restrict any use of the information to criminally investigate or prosecute any alcohol or drug abuse patient.[facility] CenterIn the event this information is protected by the Federal Confidentiality of Alcohol and Drug Abuse Patient Records regulations: The Federal rules restrict any use of the information to criminally investigate or prosecute any alcohol or drug abuse patient.[facility] CenterIn the event this information is protected by the Federal Confidentiality of Alcohol and Drug Abuse Patient Records regulations: The Federal rules restrict any use of the information to criminally investigate or prosecute any alcohol or drug abuse patient.[facility] CenterIn the event this information is protected by the Federal Confidentiality of Alcohol and Drug Abuse Patient Records regulations: The Federal rules restrict any use of the information to criminally investigate or prosecute any alcohol or drug abuse patient.[facility] CenterIn the event this information is protected by the Federal Confidentiality of Alcohol and Drug Abuse Patient Records regulations: The Federal rules restrict any use of the information to criminally investigate or prosecute any alcohol or drug abuse patient.[facility] CenterIn the event this information is protected by the Federal Confidentiality of Alcohol and Drug Abuse Patient Records regulations: The Federal rules restrict any use of the information to criminally investigate or prosecute any alcohol or drug abuse patient.[facility] CenterIn the event this information is protected by the Federal Confidentiality of Alcohol and Drug Abuse Patient Records regulations: The Federal rules restrict any use of the information to criminally investigate or prosecute any alcohol or drug abuse patient.[facility] CenterIn the event this information is protected by the Federal Confidentiality of Alcohol and Drug Abuse Patient Records regulations: The Federal rules restrict any use of the information to criminally investigate or prosecute any alcohol or drug abuse patient.[facility] CenterIn the event this information is protected by the Federal Confidentiality of Alcohol and Drug Abuse Patient Records regulations: The Federal rules restrict any use of the information to criminally investigate or prosecute any alcohol or drug abuse patient.[facility]In the event this information is protected by the Federal Confidentiality of Alcohol and Drug Abuse Patient Records regulations: The Federal rules restrict any use of the information to criminally investigate or prosecute any alcohol or drug abuse patient.[facility] CenterIn the event this information is protected by the Federal Confidentiality of Alcohol and Drug Abuse Patient Records regulations: The Federal rules restrict any use of the information to criminally investigate or prosecute any alcohol or drug abuse patient.[facility] CenterIn the event this information is protected by the Federal Confidentiality of Alcohol and Drug Abuse Patient Records regulations: The Federal rules restrict any use of the information to criminally investigate or prosecute any alcohol or drug abuse patient.[facility] CenterIn the event this information is protected by the Federal Confidentiality of Alcohol and Drug Abuse Patient Records regulations: The Federal rules restrict any use of the information to criminally investigate or prosecute any alcohol or drug abuse patient.[facility] CenterIn the event this information is protected by the Federal Confidentiality of Alcohol and Drug Abuse Patient Records regulations: The Federal rules restrict any use of the information to criminally investigate or prosecute any alcohol or drug abuse patient.[facility] CenterIn the event this information is protected by the Federal Confidentiality of Alcohol and Drug Abuse Patient Records regulations: The Federal rules restrict any use of the information to criminally investigate or prosecute any alcohol or drug abuse patient.[facility] CenterIn the event this information is protected by the Federal Confidentiality of Alcohol and Drug Abuse Patient Records regulations: The Federal rules restrict any use of the information to criminally investigate or prosecute any alcohol or drug abuse patient.[facility] CenterIn the event this information is protected by the Federal Confidentiality of Alcohol and Drug Abuse Patient Records regulations: The Federal rules restrict any use of the information to criminally investigate or prosecute any alcohol or drug abuse patient.[facility] CenterIn the event this information is protected by the Federal Confidentiality of Alcohol and Drug Abuse Patient Records regulations: The Federal rules restrict any use of the information to criminally investigate or prosecute any alcohol or drug abuse patient.[facility] CenterIn the event this information is protected by the Federal Confidentiality of Alcohol and Drug Abuse Patient Records regulations: The Federal rules restrict any use of the information to criminally investigate or prosecute any alcohol or drug abuse patient.[facility] CenterIn the event this information is protected by the Federal Confidentiality of Alcohol and Drug Abuse Patient Records regulations: The Federal rules restrict any use of the information to criminally investigate or prosecute any alcohol or drug abuse patient.[facility] CenterIn the event this information is protected by the Federal Confidentiality of Alcohol and Drug Abuse Patient Records regulations: The Federal rules restrict any use of the information to criminally investigate or prosecute any alcohol or drug abuse patient.[facility] CenterIn the event this information is protected by the Federal Confidentiality of Alcohol and Drug Abuse Patient Records regulations: The Federal rules restrict any use of the information to criminally investigate or prosecute any alcohol or drug abuse patient.[facility] CenterIn the event this information is protected by the Federal Confidentiality of Alcohol and Drug Abuse Patient Records regulations: The Federal rules restrict any use of the information to criminally investigate or prosecute any alcohol or drug abuse patient.[facility] CenterIn the event this information is protected by the Federal Confidentiality of Alcohol and Drug Abuse Patient Records regulations: The Federal rules restrict any use of the information to criminally investigate or prosecute any alcohol or drug abuse patient.[facility] CenterIn the event this information is protected by the Federal Confidentiality of Alcohol and Drug Abuse Patient Records regulations: The Federal rules restrict any use of the information to criminally investigate or prosecute any alcohol or drug abuse patient.[facility] CenterIn the event this information is protected by the Federal Confidentiality of Alcohol and Drug Abuse Patient Records regulations: The Federal rules restrict any use of the information to criminally investigate or prosecute any alcohol or drug abuse patient.[facility] CenterIn the event this information is protected by the Federal Confidentiality of Alcohol and Drug Abuse Patient Records regulations: The Federal rules restrict any use of the information to criminally investigate or prosecute any alcohol or drug abuse patient.[facility] CenterIn the event this information is protected by the Federal Confidentiality of Alcohol and Drug Abuse Patient Records regulations: The Federal rules restrict any use of the information to criminally investigate or prosecute any alcohol or drug abuse patient.[facility] CenterIn the event this information is protected by the Federal Confidentiality of Alcohol and Drug Abuse Patient Records regulations: The Federal rules restrict any use of the information to criminally investigate or prosecute any alcohol or drug abuse patient.[facility] CenterIn the event this information is protected by the Federal Confidentiality of Alcohol and Drug Abuse Patient Records regulations: The Federal rules restrict any use of the information to criminally investigate or prosecute any alcohol or drug abuse patient.[facility] CenterIn the event this information is protected by the Federal Confidentiality of Alcohol and Drug Abuse Patient Records regulations: The Federal rules restrict any use of the information to criminally investigate or prosecute any alcohol or drug abuse patient.[facility] the event this information is protected by the Federal Confidentiality of Alcohol and Drug Abuse Patient Records regulations: The Federal rules restrict any use of the information to criminally investigate or prosecute any alcohol or drug abuse patient.[facility] CenterIn the event this information is protected by the Federal Confidentiality of Alcohol and Drug Abuse Patient Records regulations: The Federal rules restrict any use of the information to criminally investigate or prosecute any alcohol or drug abuse patient.[facility] CenterIn the event this information is protected by the Federal Confidentiality of Alcohol and Drug Abuse Patient Records regulations: The Federal rules restrict any use of the information to criminally investigate or prosecute any alcohol or drug abuse patient.[facility] CenterIn the event this information is protected by the Federal Confidentiality of Alcohol and Drug Abuse Patient Records regulations: The Federal rules restrict any use of the information to criminally investigate or prosecute any alcohol or drug abuse patient.[facility] CenterIn the event this information is protected by the Federal Confidentiality of Alcohol and Drug Abuse Patient Records regulations: The Federal rules restrict any use of the information to criminally investigate or prosecute any alcohol or drug abuse patient.[facility] CenterIn the event this information is protected by the Federal Confidentiality of Alcohol and Drug Abuse Patient Records regulations: The Federal rules restrict any use of the information to criminally investigate or prosecute any alcohol or drug abuse patient.[facility] CenterIn the event this information is protected by the Federal Confidentiality of Alcohol and Drug Abuse Patient Records regulations: The Federal rules restrict any use of the information to criminally investigate or prosecute any alcohol or drug abuse patient.[facility] CenterIn the event this information is protected by the Federal Confidentiality of Alcohol and Drug Abuse Patient Records regulations: The Federal rules restrict any use of the information to criminally investigate or prosecute any alcohol or drug abuse patient.[facility] CenterIn the event this information is protected by the Federal Confidentiality of Alcohol and Drug Abuse Patient Records regulations: The Federal rules restrict any use of the information to criminally investigate or prosecute any alcohol or drug abuse patient.[facility] CenterIn the event this information is protected by the Federal Confidentiality of Alcohol and Drug Abuse Patient Records regulations: The Federal rules restrict any use of the information to criminally investigate or prosecute any alcohol or drug abuse patient.[facility] CenterIn the event this information is protected by the Federal Confidentiality of Alcohol and Drug Abuse Patient Records regulations: The Federal rules restrict any use of the information to criminally investigate or prosecute any alcohol or drug abuse patient.[facility] CenterIn the event this information is protected by the Federal Confidentiality of Alcohol and Drug Abuse Patient Records regulations: The Federal rules restrict any use of the information to criminally investigate or prosecute any alcohol or drug abuse patient.[facility] CenterIn the event this information is protected by the Federal Confidentiality of Alcohol and Drug Abuse Patient Records regulations: The Federal rules restrict any use of the information to criminally investigate or prosecute any alcohol or drug abuse patient.[facility] CenterIn the event this information is protected by the Federal Confidentiality of Alcohol and Drug Abuse Patient Records regulations: The Federal rules restrict any use of the information to criminally investigate or prosecute any alcohol or drug abuse patient.[facility] CenterIn the event this information is protected by the Federal Confidentiality of Alcohol and Drug Abuse Patient Records regulations: The Federal rules restrict any use of the information to criminally investigate or prosecute any alcohol or drug abuse patient.[facility] CenterIn the event this information is protected by the Federal Confidentiality of Alcohol and Drug Abuse Patient Records regulations: The Federal rules restrict any use of the information to criminally investigate or prosecute any alcohol or drug abuse patient.[facility] CenterIn the event this information is protected by the Federal Confidentiality of Alcohol and Drug Abuse Patient Records regulations: The Federal rules restrict any use of the information to criminally investigate or prosecute any alcohol or drug abuse patient.[facility] CenterIn the event this information is protected by the Federal Confidentiality of Alcohol and Drug Abuse Patient Records regulations: The Federal rules restrict any use of the information to criminally investigate or prosecute any alcohol or drug abuse patient.[facility] CenterIn the event this information is protected by the Federal Confidentiality of Alcohol and Drug Abuse Patient Records regulations: The Federal rules restrict any use of the information to criminally investigate or prosecute any alcohol or drug abuse patient.[facility] CenterIn the event this information is protected by the Federal Confidentiality of Alcohol and Drug Abuse Patient Records regulations: The Federal rules restrict any use of the information to criminally investigate or prosecute any alcohol or drug abuse patient.[facility] CenterIn the event this information is protected by the Federal Confidentiality of Alcohol and Drug Abuse Patient Records regulations: The Federal rules restrict any use of the information to criminally investigate or prosecute any alcohol or drug abuse patient.[facility] CenterIn the event this information is protected by the Federal Confidentiality of Alcohol and Drug Abuse Patient Records regulations: The Federal rules restrict any use of the information to criminally investigate or prosecute any alcohol or drug abuse patient.[facility] CenterIn the event this information is protected by the Federal Confidentiality of Alcohol and Drug Abuse Patient Records regulations: The Federal rules restrict any use of the information to criminally investigate or prosecute any alcohol or drug abuse patient.[facility] CenterIn the event this information is protected by the Federal Confidentiality of Alcohol and Drug Abuse Patient Records regulations: The Federal rules restrict any use of the information to criminally investigate or prosecute any alcohol or drug abuse patient.[facility] CenterIn the event this information is protected by the Federal Confidentiality of Alcohol and Drug Abuse Patient Records regulations: The Federal rules restrict any use of the information to criminally investigate or prosecute any alcohol or drug abuse patient.[facility] CenterIn the event this information is protected by the Federal Confidentiality of Alcohol and Drug Abuse Patient Records regulations: The Federal rules restrict any use of the information to criminally investigate or prosecute any alcohol or drug abuse patient.[facility] CenterIn the event this information is protected by the Federal Confidentiality of Alcohol and Drug Abuse Patient Records regulations: The Federal rules restrict any use of the information to criminally investigate or prosecute any alcohol or drug abuse patient.[facility] Reason for Visit (unrecogniz ed section and content) Reason Comments PT Eval Specialty Diagnoses / Procedures Referred By Contac t Referred To Contact PHYSICAL THERAPY Diagnoses Physical deconditioning Procedures CONSULT TO PHYSICAL THERAPY PHYSICAL THERAPY EVALUATION HIGH COMPLEX 45 MINS Ernesto, Leighton Chi [address] [address] Referral ID Status Reason Start Date Expiration Date Visits Requested Visits Authorized [id number] Authorized PCP Requested Referral Auto-Generate d Referral 04/14/2023 04/13/2024 99 99 Reason Comments Physical Therapy Specialty Diagnoses / Procedures Referred By Contac t Referred To Contact PHYSICAL THERAPY Diagnoses Physical deconditioning Procedures CONSULT TO PHYSICAL THERAPY PHYSICAL THERAPY EVALUATION HIGH COMPLEX 45 MINS Ulises Ramos, [address] [place] [address] [address] Specialty Diagnoses / Procedures Referred By Contac t Referred To Contact [facility] Diagnoses Physical deconditioning Procedures CONSULT TO PHYSICAL THERAPY PHYSICAL THERAPY EVALUATION HIGH COMPLEX 45 MINS Ulises Ramos DO [address] [place] [address] [facility] [place] [address] [place] [address] Referral ID Status Reason Start Date Expiration Date Visits Requested Visits Authorized [id number] Authorized PCP Requested Referral Auto-Generate d Referral 12/19/2022 12/19/2023 99 99 Reason Comments PT Discharge Specialty Diagnoses / Procedures Referred By Contac t Referred To Contact Physical Therapy / PHYSICAL THERAPY Diagnoses Muscular deconditioning [R29.898] Procedures EST RS PT ORTH MSK Ulises Ramos, DO [address] [place] [address] Sia Hodge, PT [address] [address] Referral ID Status Reason Start Date Expiration Date V isits Requested Visits Authorized [id number] Authorized 04/14/2022 04/13/2023 20 20 Specialty Diagnoses / Procedures Referred By Contac t Referred To Contact [facility] Diagnoses History of left hip replacement Procedures CONSULT TO PHYSICAL THERAPY PHYSICAL THERAPY EVALUATION HIGH COMPLEX 45 MINS Ulises Ramos, DO [address] [place] [address] [facility] [place] [address] [place] [address] Referral ID Status Reason Start Date Expiration Date V isits Requested Visits Authorized [id number] Authorized 04/14/2021 04/13/2022 20 20 Reason Comments [...] Expiration Date V isits Requested Visits Authorized [id number] Authorized 04/14/2021 04/13/2022 99 99 Reason Onset [...] Halle Dale MD [address] [facility] [address] [place] [address] Arturo Treat [facility] [address] [place] [address] Referral ID Status Reason Start Date Expiration Date V isits Requested Visits Authorized [id number] Authorized 02/19/2022 05/20/2022 99 99 Reason Onset Date Comments Community Monitoring Outreach 03/14/2022 Specialty Diagnoses / Procedures Referred By Contac t Referred To Contact [facility] Diagnoses Muscular deconditioning Procedures CONSULT TO PHYSICAL THERAPY PHYSICAL THERAPY EVALUATION HIGH COMPLEX 45 MINS Ulises Ramos, DO [address] [place] [address] [facility] [place] [address] [place] [address] Referral ID Status Reason Start Date Expiration Date Visits Requested Visits Authorized [id number] Authorized PCP Requested Referral Auto-Generate d Referral [...] RS PT ORTH MSK Ulises Ramos, DO [address] [place] [address] Sia Hodge, PT [address] [place] [address] Reason Comments Cough Since April/greeni sh bee [...] DILATOR BRNCDILAT RSPSE SPMTRY PRE&POST-BRNCDILAT ADMN Ulises Ramso, DO [address] [place] [address] [facility] [place] [address] [place] [address] Referral ID Status Reason Start Date Expiration Date V isits Requested Visits Authorized [id number] Closed Auto-Generate d Referral 07/02/2022 08/01/2023 1 1 Reason Comments Care Coordination Reason Comments 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 - Other NIKOLAS Phillip Reason Comments Referral Request Reason Comments Consult Reason Comments Rectal Bleeding Specialty Diagnoses / [facility] Diagnoses Chronic cough Procedures CT CHEST W IVCON DIAGNOSTIC COMPUTED TOMOGRAPHY THORAX W/CONTRAST Ulises Ramos, DO [address] [place] [address] Ct Imaging Referral ID Status Reason Start Date Expiration Date V isits Requested Visits Authorized [id number] Closed Auto-Generate d Referral 07/30/2022 08/29/2023 1 [...] Apnea Specialty Diagnoses / Procedures [facility] Referred To Contact Diagnoses Chronic insomnia Procedures CONSULT TO SLEEP MEDICINE - ADULT OFFICE/OUTPATIENT [facility] MDM 60-74 MINUTES Ulises Ramos, [address] [place] [address] Referral ID Status Reason Start Date Expiration Date V isits Requested Visits Authorized [id number] Closed PCP Requested Referral 07/30/2022 07/30/2023 1 [...] he is no longer following up with [facility] providers-mir Reason Onset Date Comments Community Monitoring Outreach 01/15/2023 Reason Comments New Patient Visit Specialty Diagnoses / Procedures Referred By Contac t Referred To Contact Diagnoses Atrial fibrillation, unspecified type ([facility]) Procedures ECG 12 lead (Clinic Performed) Melinda Kraft MD [address] [place] [address] Referral ID Status Reason Start Date Expiration Date V isits Requested Visits Authorized [id number] Pending Review 02/20/2023 02/20/2024 1 1 Reason [...] Care Teams (unrecognized sec tion and content) Retail Marketing Specialist Relationship Specialty Start Date End Date Ulises Ramos, [address] [place] [address] PCP - General Family Practice 03/02/19 Retail Marketing Specialist Relationship Specialty Start Date End Date Ulises Ramos DO [address] [place] [address] PCP - General Family Practice 03/02/19 Louie Silva, supervisor shaving and splittingSchool [facility] 07/11/21 Retail Marketing Specialist Relationship Specialty Start Date End Date Ulises Ramos DO [address] [place] [address] PCP - General Family Practice 03/02/19 Louie Silva, supervisor shaving and splittingSchool [facility] 07/11/21 Retail Marketing Specialist Relationship Specialty Start Date End Date Ulises Ramos, DO [address] [place] [address] PCP - General Family Practice 03/02/19 Louie Silva, supervisor shaving and splittingSchool [facility] 07/11/21 Retail Marketing Specialist Relationship Specialty Start Date End Date Ulises Ramos, DO [address] [place] [address] PCP - General Family Practice 03/02/19 Louie Silva, supervisor shaving and splittingSchool [facility] 07/11/21 Retail Marketing Specialist Relationship Specialty Start Date End Date Ulises Ramos, DO [address] [place] [address] PCP - General Family Practice 03/02/19 Louie Silva, supervisor shaving and splittingSchool [facility] 07/11/21 Retail Marketing Specialist Relationship Specialty Start Date End Date Ulises Ramos, DO [address] [place] [address] PCP - General Family Practice 03/02/19 Louie Silva, supervisor shaving and splittingSchool [facility] 07/11/21 Retail Marketing Specialist Relationship Specialty Start Date End Date Ulises Ramos, DO [address] [place] [address] PCP - General Family Practice 03/02/19 Louie Silva, supervisor shaving and splittingSchool [facility] 07/11/21 Retail Marketing Specialist Relationship Specialty Start Date End Date Ulises Ramos, DO [address] [place] [address] PCP - General Family Practice 03/02/19 Louie Silva, supervisor shaving and splittingSchool [facility] 07/11/21 Retail Marketing Specialist Relationship Specialty Start Date End Date Ulises Ramos, DO [address] [facility] [place] [address] PCP - General Family Practice 03/02/19 Louie Silva, supervisor shaving and splittingSchool [facility] 07/11/21 Retail Marketing Specialist Relationship Specialty Start Date End Date Ulises Ramos, DO [address] [facility] [place] [place] [address] PCP - General Family Practice 03/02/19 Louie Silva, supervisor shaving and splittingSchool [facility] 07/11/21 Retail Marketing Specialist Relationship Specialty Start Date End Date Ulises Ramos, DO [address] [facility] [address] PCP - General Family Practice 03/02/19 Louie Silva, supervisor shaving and splittingSchool [facility] 07/11/21 Retail Marketing Specialist Relationship Specialty Start Date End Date Ulises Ramos, DO [address] [place] [address] PCP - General Family Practice 03/02/19 Louie Silva, supervisor shaving and splittingSchool [facility] 07/11/21 Retail Marketing Specialist Relationship Specialty Start Date End Date Ulises Ramos, DO [address] [facility] [place] [address] PCP - General Family Practice 03/02/19 Louie Silva, supervisor shaving and splittingSchool [facility] 07/11/21 Retail Marketing Specialist Relationship Specialty Start Date End Date Ulises Ramos, DO [address] [place] [place] [address] PCP - General Family Practice 03/02/19 Louie Silva, supervisor shaving and splittingSchool [facility] 07/11/21 Retail Marketing Specialist Relationship Specialty Start Date End Date Ulises Ramos, DO [address] [place] [address] PCP - General Family Practice 03/02/19 Louie Silva, supervisor shaving and splittingSchool [facility] 07/11/21 Retail Marketing Specialist Relationship Specialty Start Date End Date Ulises Ramos, DO [address] [facility] [place] [address] PCP - General Family Practice 03/02/19 Louie Silva, supervisor shaving and splittingSchool [facility] 07/11/21 Retail Marketing Specialist Relationship Specialty Start Date End Date Ulises Ramos, DO [address] [place] [address] PCP - General Family Practice 03/02/19 Louie Silva, supervisor shaving and splittingSchool [facility] 07/11/21 Retail Marketing Specialist Relationship Specialty Start Date End Date Ulises Ramos, DO [address] [facility] [place] [address] PCP - General Family Practice 03/02/19 Louie Silva, supervisor shaving and splittingSchool [facility] 07/11/21 Retail Marketing Specialist Relationship Specialty Start Date End Date Ulises Ramos, DO [address] [facility] [place] [address] PCP - General Family Practice 03/02/19 Louie Silva, supervisor shaving and splittingSchool [facility] 07/11/21 Retail Marketing Specialist Relationship Specialty Start Date End Date Ulises Ramos, DO [address] [facility] [place] [address] PCP - General Family Practice 03/02/19 Louie Silva, supervisor shaving and splittingSchool [facility] 07/11/21 Retail Marketing Specialist Relationship Specialty Start Date End Date Ulises Ramos, DO [address] [place] [address] PCP - General Family Medicine 03/02/19 Louie Silva, supervisor shaving and splittingSchool [facility] 07/11/21 Retail Marketing Specialist Relationship Specialty Start Date End Date Ulises Ramos, DO [address] [place] [address] PCP - General Family Medicine 03/02/19 Louie Silva, supervisor shaving and splittingSchool Patrol [facility] 07/11/21 Retail Marketing Specialist Relationship Specialty Start Date End Date Ulises Ramos, DO [address] [place] [address] PCP - General Family Medicine 03/02/19 Louie Silva, supervisor shaving and splittingSchool Patrol [facility] 07/11/21 Retail Marketing Specialist Relationship Specialty Start Date End Date Ulises Ramos, DO [address] [place] [address] PCP - General Family Medicine 03/02/19 Louie Silva, supervisor shaving and splittingSchool [facility] 07/11/21 Retail Marketing Specialist Relationship Specialty Start Date End Date Ulises Ramos, DO [address] [place] [address] PCP - General Family Medicine 03/02/19 Louie Silva, supervisor shaving and splittingSchool [facility] 07/11/21 Yuko Raymond, MEHUL Registered Nurse Primary Care 02/08/22 Retail Marketing Specialist Relationship Specialty Start Date End Date Ulises Ramos, DO [address] [place] [address] PCP - General Family Medicine 03/02/19 Louie Silva, supervisor shaving and splittingSchool [facility] 07/11/21 Yuko Raymond, RN Registered Nurse Primary Care 02/08/22 Retail Marketing Specialist Relationship Specialty Start Date End Date Ulises Ramos, DO [address] [place] [address] PCP - General Family Medicine 03/02/19 Louie Silva, supervisor shaving and splittingSchool [facility] 07/11/21 Yuko Raymond RN Registered Nurse Primary Care 02/08/22 Retail Marketing Specialist Relationship Specialty Start Date End Date Ulises Ramos, DO [address] [place] [address] PCP - General Family Medicine 03/02/19 Louie Silva, supervisor shaving and splittingSchool [facility] 07/11/21 Yuko Raymond, RN Registered Nurse Primary Care 02/08/22 Retail Marketing Specialist Relationship Specialty Start Date End Date Ulises Ramos, DO [address] [place] [address] PCP - General Family Medicine 03/02/19 Wilton Palma, supervisor shaving and splittingSchool [facility] 07/11/21 Yuko Raymond, RN Registered Nurse Primary Care 02/08/22 Retail Marketing Specialist Relationship Specialty Start Date End Date Ulises Ramos, DO [address] [place] [address] PCP - General Family Medicine 03/02/19 Wilton Palma, supervisor shaving and splittingSchool [facility] 07/11/21 Yuko Raymond, RN Registered Nurse Primary Care 02/08/22 Retail Marketing Specialist Relationship Specialty Start Date End Date Ulises Ramos, DO [address] [place] [address] PCP - General Family Medicine 03/02/19 Wilton Palma, supervisor shaving and splittingSchool Patrol [facility] 07/11/21 Yuko Raymodn, RN Registered Nurse Primary Care 02/08/22 Retail Marketing Specialist Relationship Specialty Start Date End Date Ulises Ramos, DO [address] [place] [address] PCP - General Family Medicine 03/02/19 Wilton Palma, supervisor shaving and splittingSchool Patrol [facility] 07/11/21 Yuko Raymond, RN Registered Nurse Primary Care 02/08/22 Retail Marketing Specialist Relationship Specialty Start Date End Date Ulises Ramos, DO [address] [place] [address] PCP - General Family Medicine 03/02/19 Wilton Palma, supervisor shaving and splittingSchool Patrol [facility] 07/11/21 Yuko Raymond, MEHUL Registered Nurse Primary Care 02/08/22 Retail Marketing Specialist Relationship Specialty Start Date End Date Ulises Ramos, DO [address] [place] [address] PCP - General Family Medicine 03/02/19 Wilton Palma, supervisor shaving and splittingSchool Patrol [facility] 07/11/21 Yuko Raymond, RN Registered Nurse Primary Care 02/08/22 Retail Marketing Specialist Relationship Specialty Start Date End Date Ulises Ramos, DO [address] [place] [address] PCP - General Family Medicine 03/02/19 Wilton Palma, supervisor shaving and splittingSchool Patrol [facility] 07/11/21 Yuko Raymond, RN Registered Nurse Primary Care 02/08/22 Retail Marketing Specialist Relationship Specialty Start Date End Date Ulises Ramos, DO [address] [place] [address] PCP - General Family Medicine 03/02/19 Wilton Palma, supervisor shaving and splittingSchool Patrol [facility] 07/11/21 Yuko Raymond, RN Registered Nurse Primary Care 02/08/22 Retail Marketing Specialist Relationship Specialty Start Date End Date Ulises Ramos, DO [address] [place] [address] PCP - General Family Medicine 03/02/19 Wilton Palma, supervisor shaving and splittingSchool Patrol [facility] 07/11/21 Yuko Raymond, RN Registered Nurse Primary Care 02/08/22 Retail Marketing Specialist Relationship Specialty Start Date End Date Ulises Ramos, DO [address] [place] [address] PCP - General Family Medicine 03/02/19 Wilton Palma, supervisor shaving and splittingSchool Patrol [facility] 07/11/21 Yuko Raymond, RN Registered Nurse Primary Care 02/08/22 Retail Marketing Specialist Relationship Specialty Start Date End Date Ulises Ramos, DO [address] [place] [address] PCP - General Family Medicine 03/02/19 Wilton Palma, supervisor shaving and splittingSchool Patrol [facility] 07/11/21 Yuko Raymond, RN Registered Nurse Primary Care 02/08/22 Retail Marketing Specialist Relationship Specialty Start Date End Date Ulises Ramos, DO [address] [place] [address] PCP - General Family Medicine 03/02/19 Wilton Palma, supervisor shaving and splittingSchool Patrol [facility] 07/11/21 Yuko Raymond, RN Registered Nurse Primary Care 02/08/22 Retail Marketing Specialist Relationship Specialty Start Date End Date Ulises Ramos, DO [address] [place] [address] PCP - General Family Medicine 03/02/19 Wilton Palma, supervisor shaving and splittingSchool Patrol [facility] 07/11/21 Yuko Raymond, RN Registered Nurse Primary Care 02/08/22 Retail Marketing Specialist Relationship Specialty Start Date End Date Ulises Ramos, DO [address] [place] [address] PCP - General Family Medicine 03/02/19 Wilton Palma supervisor shaving and splittingSchool Patrol [facility] 07/11/21 Yuko Raymond, RN Registered Nurse Primary Care 02/08/22 Retail Marketing Specialist Relationship Specialty Start Date End Date Ulises Ramos, DO [address] [place] [address] PCP - General Family Medicine 03/02/19 Wilton Palma supervisor shaving and splittingSchool Patrol [facility] 07/11/21 Yuko Raymond, RN Registered Nurse Primary Care 02/08/22 Retail Marketing Specialist Relationship Specialty Start Date End Date Ulises Ramos, DO [address] [place] [address] PCP - General Family Medicine 03/02/19 Wilton Palma supervisor shaving and splittingSchool Patrol [facility] 07/11/21 Yuko Raymond, RN Registered Nurse Primary Care 02/08/22 Retail Marketing Specialist Relationship Specialty Start Date End Date Ulises Ramos, DO [address] [place] [address] PCP - General Family Medicine 03/02/19 Wilton Palma supervisor shaving and splittingSchool Patrol [facility] 07/11/21 Yuko Raymond, RN Registered Nurse Primary Care 02/08/22 Retail Marketing Specialist Relationship Specialty Start Date End Date Ulises Ramos, DO [address] [place] [address] PCP - General Family Medicine 03/02/19 Wilton Palma supervisor shaving and splittingSchool Patrol [facility] 07/11/21 Yuko Raymond, MEHUL Registered Nurse Primary Care 02/08/22 Retail Marketing Specialist Relationship Specialty Start Date End Date Ulises Ramos, DO [address] [place] [address] PCP - General Family Medicine 03/02/19 Wilton Palma, supervisor shaving and splittingSchool Patrol [facility] 07/11/21 Yuko Raymond, MEHUL Registered Nurse Primary Care 02/08/22 Retail Marketing Specialist Relationship Specialty Start Date End Date Ulises Ramos, DO [address] [place] [address] PCP - General Family Medicine 03/02/19 Wilton Palma, supervisor shaving and splittingSchool Patrol [facility] 07/11/21 Yuko Raymond RN Registered Nurse Primary Care 02/08/22 Retail Marketing Specialist Relationship Specialty Start Date End Date Ulises Ramos, DO [address] [place] [address] PCP - General Family Medicine 03/02/19 Wilton Palma, supervisor shaving and splittingSchool Patrol [facility] 07/11/21 Yuko Raymodn, MEHUL Registered Nurse Primary Care 02/08/22 Retail Marketing Specialist Relationship Specialty Start Date End Date Ulises Ramos, DO [address] [place] [address] PCP - General Family Medicine 03/02/19 Wilton Palma, supervisor shaving and splittingSchool Patrol [facility] 07/11/21 Yuko Raymond RN Registered Nurse Primary Care 02/08/22 Retail Marketing Specialist Relationship Specialty Start Date End Date Ulises Ramso, DO [address] [place] [address] PCP - General Family Medicine 03/02/19 Wilton Palma, supervisor shaving and splittingSchool Patrol [facility] 07/11/21 Yuko Raymond, RN Registered Nurse Primary Care 02/08/22 Retail Marketing Specialist Relationship Specialty Start Date End Date Ulises Ramos, DO [address] [place] [address] PCP - General Family Medicine 03/02/19 Wilton Palma, supervisor shaving and splittingSchool Patrol [facility] 07/11/21 Yuko Raymond RN Registered Nurse Primary Care 02/08/22 Retail Marketing Specialist Relationship Specialty Start Date End Date Ulises Ramos, DO [address] [place] [address] PCP - General Family Medicine 03/02/19 Wilton Palma, supervisor shaving and splittingSchool Patrol [facility] 07/11/21 Yuko Raymond RN Registered Nurse Primary Care 02/08/22 Retail Marketing Specialist Relationship Specialty Start Date End Date Ulises Ramos, DO [address] [place] [address] PCP - General Family Medicine 03/02/19 Wilton Palma supervisor shaving and splittingSchool Patrol [facility] 07/11/21 Yuko Raymond, MEHUL Registered Nurse Primary Care 02/08/22 Retail Marketing Specialist Relationship Specialty Start Date End Date Ulises Ramos, DO [address] [place] [address] PCP - General Family Medicine 03/02/19 Wilton Palma supervisor shaving and splittingSchool Patrol [facility] 07/11/21 Yuko Raymond RN Registered Nurse Primary Care 02/08/22 Retail Marketing Specialist Relationship Specialty Start Date End Date Ulises Ramos, DO [address] [place] [address] PCP - General Family Medicine 03/02/19 Wilton Palma supervisor shaving and splittingSchool Patrol [facility] 07/11/21 Yuko Raymond, MEHUL Registered Nurse Primary Care 02/08/22 Retail Marketing Specialist Relationship Specialty Start Date End Date Ulises Ramos, DO [address] [place] [address] PCP - General Family Medicine 03/02/19 Wilton Palma, supervisor shaving and splittingSchool Patrol [facility] 07/11/21 Yuko Raymond, MEHUL Registered Nurse Primary Care 02/08/22 Retail Marketing Specialist Relationship Specialty Start Date End Date Ulises Ramos, DO [address] [place] [address] PCP - General Family Medicine 03/02/19 Wilton Palma, supervisor shaving and splittingSchool Patrol [facility] 07/11/21 Yuko Raymond, RN Registered Nurse Primary Care 02/08/22 Retail Marketing Specialist Relationship Specialty Start Date End Date Ulises Ramos, DO [address] [place] [address] PCP - General Family Medicine 03/02/19 Wilton Palma, supervisor shaving and splittingSchool Patrol [facility] 07/11/21 Yuko Raymond, RN Registered Nurse Primary Care 02/08/22 Retail Marketing Specialist Relationship Specialty Start Date End Date Ulises Ramos, DO [address] [place] [address] PCP - General Family Medicine 03/02/19 Wilton Palma, supervisor shaving and splittingSchool Patrol [facility] 07/11/21 Yuko Raymond, RN Registered Nurse Primary Care 02/08/22 Retail Marketing Specialist Relationship Specialty Start Date End Date Ulises Ramos, DO [address] [place] [address] PCP - General Family Medicine 03/02/19 Wilton Palma, supervisor shaving and splittingSchool Patrol [facility] 07/11/21 Yuko Raymond, RN Registered Nurse Primary Care 02/08/22 Retail Marketing Specialist Relationship Specialty Start Date End Date Ulises Ramos, [address] [place] [address] PCP - General Family Medicine 03/02/19 Wilton Palma, supervisor shaving and splittingSchool Patrol [facility] 07/11/21 Yuko Raymond, RN Registered Nurse Primary Care 02/08/22 Retail Marketing Specialist Relationship Specialty Start Date End Date Ulises Ramos, [address] [place] [address] PCP - General Family Medicine 03/02/19 Wilton Palma supervisor shaving and splittingSchool Patrol [facility] 07/11/21 Yuko Raymond, RN Registered Nurse Primary Care 02/08/22 Retail Marketing Specialist Relationship Specialty Start Date End Date Ulises Ramos, [address] [place] [address] PCP - General Family Medicine 03/02/19 Wilton Palma, supervisor shaving and splittingSchool Patrol [facility] 07/11/21 Yuko Raymond, MEHUL Registered Nurse Primary Care 02/08/22 Retail Marketing Specialist Relationship Specialty Start Date End Date Ulises Ramos, [address] [place] [address] PCP - General Family Medicine 03/02/19 Wilton Palma, supervisor shaving and splittingSchool Patrol [facility] 07/11/21 Yuko Raymond, RN Registered Nurse Primary Care 02/08/22 Retail Marketing Specialist Relationship Specialty Start Date End Date Ulises Ramos, [address] [place] [address] PCP - General Family Medicine 03/02/19 Wilton Palma, supervisor shaving and splittingSchool Patrol [facility] 07/11/21 Yuko Raymond, RN Registered Nurse Primary Care 02/08/22 Retail Marketing Specialist Relationship Specialty Start Date End Date Ulises Ramos, DO [address] [place] [address] PCP - General Family Medicine 03/02/19 Wilton Palma, supervisor shaving and splittingSchool Patrol [facility] 07/11/21 Yuko Raymond, RN Registered Nurse Primary Care 02/08/22 Retail Marketing Specialist Relationship Specialty Start Date End Date Ulises Ramos, [address] [place] [address] PCP - General Family Medicine 03/02/19 Wilton Palma, supervisor shaving and splittingSchool Patrol [facility] 07/11/21 Yuko Raymond, RN Registered Nurse Primary Care 02/08/22 Retail Marketing Specialist Relationship Specialty Start Date End Date Ulises Ramos, DO [address] [place] [address] PCP - General Family Medicine 03/02/19 Wilton Palma, supervisor shaving and splittingSchool Patrol [facility] 07/11/21 Yuko Raymond, RN Registered Nurse Primary Care 02/08/22 Halle Dale MD [address] [address] Hematology/Oncology 11/29/22 Retail Marketing Specialist Relationship Specialty Start Date End Date Ulises Ramos, DO [address] [place] [address] PCP - General Family Medicine 03/02/19 Wilton Palma, supervisor shaving and splittingSchool Patrol [facility] 07/11/21 Yuko Raymond, RN Registered Nurse Primary Care 02/08/22 Halle Dale MD [address] [place] [address] Hematology/Oncology 11/29/22 Retail Marketing Specialist Relationship Specialty Start Date End Date Ulises Ramos DO [address] [place] [address] PCP - General Family Medicine 03/02/19 Wilton Palma, supervisor shaving and splittingSchool Patrol [facility] 07/11/21 Yuko Raymond, RN Registered Nurse Primary Care 02/08/22 Halle Dale MD [address] [place] [address] Hematology/Oncology 11/29/22 Maddie White, supervisor shaving and splitting Law Enforcement Director 12/11/22 01/10/23 Retail Marketing Specialist Relationship Specialty Start Date End Date Ulises Ramos DO [address] [place] [address] PCP - General Family Medicine 03/02/19 Wilton Palma supervisor shaving and splittingSchool Patrol [facility] 07/11/21 Yuko Raymond, RN Registered Nurse Primary Care 02/08/22 Halle Dale MD [address] [place] [address] Hematology/Oncology 11/29/22 Maddie White, supervisor shaving and splitting Law Enforcement Director 12/11/22 01/10/23 Retail Marketing Specialist Relationship Specialty Start Date End Date Ulises Ramos DO [address] [place] [address] PCP - General Family Medicine 03/02/19 Wilton Palma, supervisor shaving and splittingSchool Patrol [facility] 07/11/21 Yuko Raymond, MEHUL Registered Nurse Primary Care 02/08/22 Halle Dale MD [address] [place] [address] Hematology/Oncology 11/29/22 Maddie White, supervisor shaving and splitting Law Enforcement Director 12/11/22 01/10/23 Retail Marketing Specialist Relationship Specialty Start Date End Date Ulises Ramos DO [address] [place] [address] PCP - General Family Medicine 03/02/19 Wilton Palma RN School Patrol [facility] 07/11/21 Yuko Raymond, RN Registered Nurse Primary Care 02/08/22 Halle Dale MD [address] [place] [address] Hematology/Oncology 11/29/22 Maddie White, supervisor shaving and splitting Law Enforcement Director 12/11/22 01/10/23 Retail Marketing Specialist Relationship Specialty Start Date End Date Ulises Ramos DO [address] [place] [address] PCP - General Family Medicine 03/02/19 Wilton Palma, supervisor shaving and splittingSchool Patrol [facility] 07/11/21 Yuko Raymond, MEHUL Registered Nurse Primary Care 02/08/22 Halle Dale MD [address] [place] [address] Hematology/Oncology 11/29/22 Maddie White, supervisor shaving and splitting Law Enforcement Director 12/11/22 01/10/23 Retail Marketing Specialist Relationship Specialty Start Date End Date Ulises Ramos DO [address] [place] [address] PCP - General Family Medicine 03/02/19 Wilton Palma, supervisor shaving and splittingSchool Patrol [facility] 07/11/21 Yuko Raymond, RN Registered Nurse Primary Care 02/08/22 Halle Dale MD [address] [place] [address] Hematology/Oncology 11/29/22 Maddie White, supervisor shaving and splitting Law Enforcement Director 12/11/22 01/10/23 Retail Marketing Specialist Relationship Specialty Start Date End Date Ulises Ramos DO [address] [place] [address] PCP - General Family Medicine 03/02/19 Wilton Palma RN School Patrol Family [facility] 07/11/21 Yuko Raymond, RN Registered Nurse Primary Care 02/08/22 Halle Dale MD [address] [place] [address] Hematology/Oncology 11/29/22 Maddie White, supervisor shaving and splitting Law Enforcement Director 12/11/22 01/10/23 Halle Dale MD [address] [place] [address] Referring Hematology/Oncology 12/26/22 Halle Dale MD [address] [facility] [address] [place] [address] Home Care Provider Hematology/Oncology 12/26/22 Retail Marketing Specialist Relationship Specialty Start Date End Date Ulises Ramos DO [address] [place] [address] PCP - General Family Medicine 03/02/19 Wilton Palma, supervisor shaving and splittingSchool Patrol Family [facility] 07/11/21 Yuko Raymond, RN Registered Nurse Primary Care 02/08/22 Halle Dale MD [address] [place] [address] Hematology/Oncology 11/29/22 Halle Dale MD [address] [place] [address] Referring Hematology/Oncology 12/26/22 Halle Dale MD [address] [place] [address] Home Care Provider Hematology/Oncology 12/26/22 Retail Marketing Specialist Relationship Specialty Start Date End Date Ulises Ramos DO [address] [place] [address] PCP - General Family Medicine 03/02/19 Wilton Palma, supervisor shaving and splittingSchool Patrol Family [facility] 07/11/21 Yuko Raymond, RN Registered Nurse Primary Care 02/08/22 Halle Dale MD [address] [place] [address] Hematology/Oncology 11/29/22 Halle Dale MD [address] [place] [address] Referring Hematology/Oncology 12/26/22 Halle Dale MD [address] [place] [address] Home Care Provider Hematology/Oncology 12/26/22 Retail Marketing Specialist Relationship Specialty Start Date End Date Ulises Ramos DO [address] [place] [address] PCP - General Family Medicine 03/02/19 Wilton Palma, supervisor shaving and splittingSchool Patrol Family Medicine 07/11/21 Yuko Raymond, RN Registered Nurse Primary Care 02/08/22 Halle Dale MD [address] [place] [address] Hematology/Oncology 11/29/22 Halle Dale MD [address] [place] [address] Referring Hematology/Oncology 12/26/22 Halle Dale MD [address] [place] [address] Home Care Provider Hematology/Oncology 12/26/22 Retail Marketing Specialist Relationship Specialty Start Date End Date Ulises Ramos DO [address] [place] [address] PCP - General Family Medicine 03/02/19 Wilton Palma RN School Patrol Family [facility] 07/11/21 Yuko Raymond, RN Registered Nurse Primary Care 02/08/22 Halle Dale MD [address] [place] [address] Hematology/Oncology 11/29/22 Halle Dale MD [address] [place] [address] Referring Hematology/Oncology 12/26/22 Halle Dale MD [address] [place] [address] Home Care Provider Hematology/Oncology 12/26/22 Retail Marketing Specialist Relationship Specialty Start Date End Date Ulises Ramos DO [address] [place] [address] PCP - General Family Medicine 03/02/19 Wilton Palma, supervisor shaving and splittingSchool Patrol Family Medicine 07/11/21 Yuko Raymond, RN Registered Nurse Primary Care 02/08/22 Halle Dale MD [address] [place] [address] Hematology/Oncology 11/29/22 Halle Dale MD [address] [place] [address] Referring Hematology/Oncology 12/26/22 Halle Dale MD [address] [place] [address] Home Care Provider Hematology/Oncology 12/26/22 Retail Marketing Specialist Relationship Specialty Start Date End Date Ulises Ramos DO [address] [place] [address] PCP - General Family Medicine 03/02/19 Wilton Palma RN School Patrol Family [facility] 07/11/21 Yuko Raymond, RN Registered Nurse Primary Care 02/08/22 Halle Dale MD [address] [place] [address] Hematology/Oncology 11/29/22 Halle Dale MD [address] [place] [address] Referring Hematology/Oncology 12/26/22 Halle Dale MD [address] [facility] [address] [place] [address] Home Care Provider Hematology/Oncology 12/26/22 Retail Marketing Specialist Relationship Specialty Start Date End Date Ulises Ramos DO [address] [place] [address] PCP - General Family Medicine 03/02/19 Wilton Palma, supervisor shaving and splittingSchool Patrol Family Medicine 07/11/21 Yuko Raymond, RN Registered Nurse Primary Care 02/08/22 Halle Dale MD [address] [facility] [address] [place] [address] Hematology/Oncology 11/29/22 Halle Dale MD [address] [address] Referring Hematology/Oncology 12/26/22 Halle Dale MD [address] [facility] [address] [place] [address] Home Care Provider Hematology/Oncology 12/26/22 Retail Marketing Specialist Relationship Specialty Start Date End Date Aleja Uribe MD [address] [facility], [address] [place] [address] PCP - General 08/07/09 Retail Marketing Specialist Relationship Specialty Start Date End Date Ulises Ramos DO [address] [place] [address] PCP - General Family Medicine 03/02/19 Wilton Palma supervisor shaving and splittingSchool Patrol Family Medicine 07/11/21 Yuko Raymond, RN Registered Nurse Primary Care 02/08/22 Halle Dale MD [address] [place] [address] Hematology/Oncology 11/29/22 Halle Dale MD [address] [place] [address] Referring Hematology/Oncology 12/26/22 Halle Dale MD [address] [place] [address] Home Care Provider Hematology/Oncology 12/26/22 Retail Marketing Specialist Relationship Specialty Start Date End Date Ulises Ramos DO [address] [place] [address] PCP - General Family Medicine 03/02/19 Wilton Palma, supervisor shaving and splittingSchool Patrol Family Medicine 07/11/21 Yuko Raymond RN Registered Nurse Primary Care 02/08/22 Halle Dale MD [address] [place] [address] Hematology/Oncology 11/29/22 Halle Dale MD [address] [place] [address] Referring Hematology/Oncology 12/26/22 Halle Dale MD [address] [place] [address] Home Care Provider Hematology/Oncology 12/26/22 Retail Marketing Specialist Relationship Specialty Start Date End Date Ulises Ramos DO [address] [place] [address] PCP - General Family Medicine 03/02/19 Wilton Palma, supervisor shaving and splittingSchool Patrol Family Medicine 07/11/21 Yuko Raymond, RN Registered Nurse Primary Care 02/08/22 Halle Dale MD [address] [place] [address] Hematology/Oncology 11/29/22 Halle Dale MD [address] [place] [address] Referring Hematology/Oncology 12/26/22 Halle Dale MD [address] [place] [address] Home Care Provider Hematology/Oncology 12/26/22 Retail Marketing Specialist Relationship Specialty Start Date End Date Ulises Ramos DO [address] [place] [address] PCP - General Family Medicine 03/02/19 Wilton Palma RN School Patrol Family Medicine 07/11/21 Yuko Raymond, RN Registered Nurse Primary Care 02/08/22 Halle Dale MD [address] [place] [address] Hematology/Oncology 11/29/22 Halle Dale MD [address] [place] [address] Referring Hematology/Oncology 12/26/22 Halle Dale MD [address] [place] [address] Home Care Provider Hematology/Oncology 12/26/22 Retail Marketing Specialist Relationship Specialty Start Date End Date Ulises Ramos DO [address] [place] [address] PCP - General Family Medicine 03/02/19 Wilton Palma, supervisor shaving and splittingSchool Patrol Family Medicine 07/11/21 Yuko Raymond, RN Registered Nurse Primary Care 02/08/22 Halle Dale MD [address] [place] [address] Hematology/Oncology 11/29/22 Halle Dale MD [address] [place] [address] Referring Hematology/Oncology 12/26/22 Halle Dale MD [address] [place] [address] Home Care Provider Hematology/Oncology 12/26/22 Retail Marketing Specialist Relationship Specialty Start Date End Date Ulises Ramos DO [address] [place] [address] PCP - General Family Medicine 03/02/19 Wilton Palma, supervisor shaving and splittingSchool Patrol [facility] 07/11/21 Yuko Raymond, RN Registered Nurse Primary Care 02/08/22 Halle Dale MD [address] [place] [address] Hematology/Oncology 11/29/22 Halle Dale MD [address] [place] [address] Referring Hematology/Oncology 12/26/22 Halle Dale MD [address] [place] [address] Home Care Provider Hematology/Oncology 12/26/22 Retail Marketing Specialist Relationship Specialty Start Date End Date Ulises Ramos DO [address] [place] [address] PCP - General Family Medicine 03/02/19 Wilton Palma supervisor shaving and splittingSchool Patrol Family Medicine 07/11/21 Yuko Raymond, RN Registered Nurse Primary Care 02/08/22 Halle Dale MD [address] [place] [address] Hematology/Oncology 11/29/22 Halle Dale MD [address] [place] [address] Referring Hematology/Oncology 12/26/22 Halle Dale MD [address] [facility] [address] [place] [address] Home Care Provider Hematology/Oncology 12/26/22 Retail Marketing Specialist Relationship Specialty Start Date End Date Sandi Dutton MD [address] [phone] PCP - General 08/19/17 Retail Marketing Specialist Relationship Specialty Start Date End Date Ulises Ramos DO [address] [place] [address] PCP - General Family Medicine 03/02/19 12/04/23 Leighton Orozco Chi [address] [address] PCP - General Gerontology 12/05/23 Wilton Palma RN School Patrol Family Medicine 07/11/21 12/04/23 Yuko Raymond, MEHUL Registered Nurse Primary Care 02/08/22 Halle Dale MD [address] [place] [address] Hematology/Oncology 11/29/22 Halle Dale MD [address] [place] [address] Referring Hematology/Oncology 12/26/22 Halle Dale MD [address] [place] [address] Home Care Provider Hematology/Oncology 12/26/22 Retail Marketing Specialist Relationship Specialty Start Date End Date Leighton Orozco Chi [address] [place] [address] PCP - General Gerontology 12/05/23 Yuko Raymond RN Registered Nurse Primary Care 02/08/22 Halle Dale MD [address] [place] [address] Hematology/Oncology 11/29/22 Halle Dale MD [address] [place] [address] Referring Hematology/Oncology 12/26/22 Halle Dale MD [address] [place] [address] Home Care Provider Hematology/Oncology 12/26/22 Retail Marketing Specialist Relationship Specialty Start Date End Date ErnestoLeighton Chi [address] [place] [address] PCP - General Gerontology 12/05/23 Yuko Raymond, MEHUL Registered Nurse Primary Care 02/08/22 Halle Dale MD [address] [place] [address] Hematology/Oncology 11/29/22 Halle Dale MD [address] [facility] [address] [place] [address] Referring Hematology/Oncology 12/26/22 Halle Dale MD [address] [facility] [address] [place] [address] Home Care Provider Hematology/Oncology 12/26/22 FOR RECORDS [...] BE BASED ON THE PRIMARY CLINICAL RECORDS. [facility]. provides no warranty or guarantee of the accuracy or completeness of information in this document.
== END | disposition home or self-care (01) ==
LOC: CVS 14:49
PROVIDERS: PCP Family Medicine Geriatric Medicine; Referring Provider Physician Assistant; Visit Provider Physician Assistant
DX: I73.9 Peripheral vascular disease, unspecified (principal)
CPT/HCPCS: 93923

== ENCOUNTER → 2024-11-04 | Outpatient (CLI) | payer MEDICARE, OTHER, SELFPAY ==
[2024-11-04 13:31] LABS: Barbiturate Urine NEGATIVE (< 200 ng/mL); Benzodiazepine Urine NEGATIVE (< 200 ng/mL); PCP Urine NEGATIVE (< 25 ng/mL); THC Urine PRESUMPTIVE POSITIVE (< 50 ng/mL)
== END | disposition home or self-care (01) ==
LOC: LAB 11:50
PROVIDERS: PCP Family Medicine Geriatric Medicine; Referring Provider Anesthesiology Pain Medicine; Visit Provider Anesthesiology Pain Medicine
DX: F11.20 Opioid dependence, uncomplicated (principal)
CPT/HCPCS: 80307

== ENCOUNTER 2024-11-17 07:29 | Day surgery (SDC) | payer MEDICARE, OTHER, SELFPAY ==
[2024-11-16 09:33] VITALS: BMI 26.2
[2024-11-17 08:01] LABS: Hematocrit 31.0 % (40-54); Hemoglobin 10.2 g/dL (13.0-16.5); Mean Corp Hgb Conc 32.9 g/dL (32-36); Mean Corpuscular Volume 140.9 fL (80-94); Mean Platelet Vol. 9.4 fl (6.2-12.0); POSITIVE COUNT YES; POSITIVE MORPHOLOGY YES; Platelet Count 320 K/mm3 (150-450); RBC Distribution Width CV 14.5 % (11.6-14.6); RBC Distribution Width SD 73.6 fl (35.1-43.9); Red Blood Count 2.20 M/mm3 (4.6-6.2)
[2024-11-17 08:20] LABS: White Blood Count 32.9 K/mm3 (4.4-11.0)
[2024-11-17 08:45] LABS: Scan Indicated on CBC? Y/N YES- FLAGS NOTED
[2024-11-17 08:47] LABS: Anion Gap 13 (5-15); BUN 36 mg/dL (4-19); BUN/Creat Ratio 19.1 RATIO (10-20); Calcium,Total 9.4 mg/dL (7.6-11.0); Carbon Dioxide 19.9 mmol/L (21.0-32.0); Chloride 107 mmol/L (98-108); Estimated Creatinine Clearance 36.23 ml/min (50-250); Glucose 105 mg/dL (70-99); Potassium 4.9 mmol/L (3.3-5.1)
--- NOTE | 2024-11-17 12:00 | PCM.OPRPT ---
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 Initially he had resolution of his symptoms and was walking without limitation. Several months ago he suffered a fall and femur fracture which required significant open reduction and fixation with extensive yeimy and screw placements. Since that time has had recurrence of his right calf claudication. He has known pre-existing SFA popliteal distal occlusion with reconstitution of the distal popliteal artery which was not addressed at the time of his prior revascularization. He has moderate chronic kidney disease which limits contrast imaging option so he presents now for angiogram with CO2 to determine if new arterial occlusive disease is present or if there is an alternate explanation for the new claudication symptoms. Description of procedure: Upon obtaining informed consent verification correct patient procedure site patient was taken Manager Ui where he was positioned prepped and draped in usual sterile fashion. Timeout was performed, sedation ministered Versed and fentanyl. Right radial artery access was obtained and the sheath infused with verapamil, nitro, heparin. Through the sheath a Bentson wire and pigtail catheter were advanced navigating into the aortic arch. We then traversed the arch and navigate into the descending thoracic aorta advancing the wire and catheter into the abdominal aorta. The wire was then withdrawn and digital subtraction aortogram pelvic angiogram with CO2 was performed. This revealed normal caliber abdominal aorta with moderate diffuse calcification with no stenosis. The left common and external iliac arteries were patent with diffuse calcified atherosclerosis but no significant stenosis. The left common femoral artery is appeared to be totally occluded or at the very least highly diseased. The right common and external iliac arteries were patent with diffuse calcification but no significant stenosis. The prior right common femoral endarterectomy and profunda endarterectomy site was widely patent with no evidence of recurrent stenosis. The proximal superficial femoral artery had moderate calcification with approximately 50% stenosis. The wire was then readvanced to the catheter and navigated into the right iliac artery. The pigtail catheter was exchanged for a long quick cross catheter which was advanced into the distal external iliac artery. From this position completion subtract angiography sequential imaging of the right lower extremity was performed. This revealed the mid segment superficial femoral artery was relatively free of any significant atherosclerosis though did have diffuse calcification. The distal SFA and proximal popliteal artery were totally occluded with moderate to severe calcified atherosclerosis. There is reconstitution of the mid popliteal artery with relatively minimal atherosclerotic burden in the distal popliteal artery. The tibioperoneal trunk, anterior tibial artery and posterior tibial artery were all patent with no significant stenosis and inline flow to the ankle. Seeing no lesions that were amenable to endovascular treatment from the radial access the wire and catheter were then withdrawn. A TR band was then applied and the sheath was removed after which the patient was taken the recovery area. Surgical Findings: See above Complications Complications: No
== END 2024-11-17 12:48 | disposition home or self-care (01) ==
PROVIDERS: Physician Assistant; PCP Family Medicine Geriatric Medicine; Referring Provider Surgery Trauma Surgery; Visit Provider Surgery Trauma Surgery
DX: I70.211 Atherosclerosis of native arteries of extremities with intermittent claudication, right leg (principal); J43.9 Emphysema, unspecified; I48.0 Paroxysmal atrial fibrillation; N18.30 Chronic kidney disease, stage 3 unspecified; I70.92 Chronic total occlusion of artery of the extremities; I12.9 Hypertensive chronic kidney disease with stage 1 through stage 4 chronic kidney disease, or unspecified chronic kidney disease; E78.5 Hyperlipidemia, unspecified; G47.33 Obstructive sleep apnea (adult) (pediatric); Z79.01 Long term (current) use of anticoagulants; Z79.899 Other long term (current) drug therapy; I25.2 Old myocardial infarction; Z86.718 Personal history of other venous thrombosis and embolism; Z86.73 Personal history of transient ischemic attack (TIA), and cerebral infarction without residual deficits; Z87.891 Personal history of nicotine dependence; Z95.5 Presence of coronary angioplasty implant and graft
CPT/HCPCS: 36200; 36245; 36415; 75625; 75710; 80048; 85027; 99152; 99153; C1769; C1887; C1894

== ENCOUNTER 2024-11-18 10:57 | Observation (INO) | payer MEDICARE, OTHER, SELFPAY ==
[2024-11-18] VITALS (9 sets, daily range): BP systolic 111–162; BP diastolic 60–74; PULSE 67–92; RESP 12–20; TEMP 36.6–37.2; O2SAT 95–100; BMI 25.2
--- NOTE | 2024-11-18 11:05 | ED.RN ---
PT COMPLAINING ABOUT TRIAGE PROCESS. SNICKERS EVERYTIME HE IS ASKED A QUESTION.
--- NOTE | 2024-11-18 11:06 | ED.RN ---
SPOKE WITH DR. RIVERA REGARDING PT. PT IS TO BE PLACED IN A ROOM D/T LKW BEING OVER 24HR.
--- NOTE | 2024-11-18 11:09 | ED.RN ---
PT UNPLUGGED PREETHI MAP IN TRIAGE. STATES THAT KNOW ONE CAN DO ANYTHING RIGHT. PT DEMANDING AND RUDE TO THE VOLUNTEER ASA.
--- NOTE | 2024-11-18 11:25 | CT_ITS ---
PROCEDURE: CTA HEAD AND NECK W/ CONTRAST 11/18/2024 REASON FOR EXAM: DIPLOPIA Left-sided headache following recent vascular examination. Double vision. History of left nephrectomy for renal carcinoma. TECHNIQUE: CTA HEAD AND NECK W/ CONTRAST Multiplanar Sagittal and Coronal images were obtained. 3D post processing was performed CONTRAST: Isovue-300 VOLUME: 100 mL One or more dose reduction techniques were used (e.g., Automated exposure control, adjustment of the mA and/or kV according to patient size, use of iterative reconstruction technique). RADIATION DOSE SUMMARY: CTDlvol: 20 mGy DLP: 1556.59 mGycm COMPARISON: Prior CT scan of the brain done earlier in the day. FINDINGS: Aortic Arch: Normal size and branching pattern. Mild atherosclerotic plaque. Brachiocephalic and Subclavians: Mild atherosclerotic plaque without significant stenosis. RIGHT Carotid: Right CCA: Unremarkable. Right ICA: Moderate calcified and soft plaque. Maximum stenosis (NASCET): 60 % Right ECA: Mild calcified and soft plaque. LEFT Carotid: Left CCA: Mild calcified and soft plaque. Left ICA: Marked degree of plaque formation. Maximum stenosis (NASCET): Subtotal occlusion. % Left ECA: Unremarkable. Vertebrals: Codominant. Arise from the subclavians. Both vertebrals form the basilar. RIGHT Vertebral: Unremarkable. LEFT Vertebral: Unremarkable. Anatomy: [place] anatomy is normal. Aneurysm or avm: No intracranial aneurysms or large vascular malformations are identified. Anterior cerebral arteries: Unremarkable: Middle cerebral arteries: Unremarkable. Basilar artery: Unremarkable. Posterior cerebral arteries: Unremarkable. Other major branches of the posterior circulation: Unremarkable. Major venous structures: Unremarkable. CT/CTA Head AND Neck W/ Contrast IMPRESSION: High-grade stenosis at the origin of the left internal carotid artery. 60% stenosis at the origin of the right internal carotid artery. Reading Location: [facility]
--- NOTE | 2024-11-18 11:25 | CT_ITS ---
PROCEDURE: BRAIN/HEAD WITHOUT CONTRAST 11/18/2024 REASON FOR EXAM: VISUAL DISTURBANCE TECHNIQUE: BRAIN/HEAD WITHOUT CONTRAST Coronal and Sagittal reconstruction series were provided. One or more dose reduction techniques were used (e.g., Automated exposure control, adjustment of the mA and/or kV according to patient size, use of iterative reconstruction technique. RADIATION DOSE SUMMARY: CTDlvol: 44.99 mGy DLP: 779.24 mGycm COMPARISON: None FINDINGS: Brain: Low density in the periventricular white matter suggests mild chronic small vessel ischemic changes. Calcification of the basal ganglia bilaterally. This is a normal variant. CSF Spaces: Mild generalized cerebral atrophy mild degree of cerebellar atrophy. Sinuses/Mastoids: Partial opacification of the maxillary sinuses as well as the ethmoid sinuses ethmoid sinuses and sphenoid sinus. Bones: Unremarkable CT/Brain/Head without Contrast IMPRESSION: CHRONIC CHANGES. NO ACUTE FINDINGS. Pansinusitis. Reading Location: [id number]
--- NOTE | 2024-11-18 11:26 | EKG12_ITS ---
Test Reason : VISION Blood Pressure : */* mmHG Vent. Rate : 75 BPM Atrial Rate : 75 BPM P-R Int : 144 ms QRS Dur : 92 ms QT Int : 362 ms P-R-T Axes : 75 -70 38 degrees QTcB Int : 404 ms Normal sinus rhythm Left axis deviation Abnormal ECG Confirmed by ELMA HERBERT ([id number]), health editor COSTA MILLARD ([id number]) on 11/22/2024 6:45:29 AM Referred By: Confirmed By: ELMA HERBERT
--- NOTE | 2024-11-18 11:29 | EX.ED.DYSGE1 ---
HPI <NIKOLAS Christy - Last Filed: 11/18/24 15:38> History of Present Illness Chief Complaint: Vision Prob Narrative Narrative: 69-year-old male with past medical history of HTN, HLD, CAD with stents, A-fib, DVT/PE, CKD, TIA, COPD, CIRA presents with bilateral blurry vision and diplopia that started around 11 AM yesterday. He had a procedure yesterday with a CT angiogram of his lower extremities with Dr. Boyer. He was given fentanyl and states right after this both eyes became blurry and he developed double vision that is worse on the left. He is also had a left-sided headache. He mentioned it at the end of the procedure and when it persisted this morning he called Dr. Boyre's office and they recommended he come to the ED for evaluation. He also went to see Dr. Guidry at the [facility] this morning and visual acuity in both eyes is 20/200. He had cataract surgery several weeks ago and his intraocular lenses appear normal. He was sent to the ED to evaluate for possible stroke. He is on Xarelto and last took it November 13 because he had stopped before the vascular procedure. [facility] <NIKOLAS Christy - Last Filed: 11/18/24 15:38> [facility] Medical History Kidney disease GI bleed Atrial fibrillation Myocardial infarct DVT (deep venous thrombosis) Segmental and somatic dysfunction of cervical region History of fracture of femur History of reduction of closed fracture Anxiety Bladder disease Prostate disease Low iron Pulmonary embolism History of diverticulitis History of GI bleed Former smoker CPAP (continuous positive airway pressure) dependence COPD (chronic obstructive pulmonary disease) Hypertension History of stress test History of echocardiogram Cardiology follow-up encounter Paroxysmal atrial fibrillation Tachycardia LAFB (left anterior fascicular block) PAD (peripheral artery disease) Hyperlipidemia Depression Loss of hearing Cancer Chronic cough Shortness of breath on exertion History of edema History of heart attack (~2019) Tia filter in place Peripheral neuropathy Insomnia GERD (gastroesophageal reflux disease) Essential (primary) hypertension Hypomagnesemia Mastoiditis of right side TIA (transient ischemic attack) Recurrent deep vein thrombosis (DVT) Depressive disorder due to another medical condition with depressive features History of pulmonary embolism History of DVT (deep vein thrombosis) Iron deficiency anemia due to chronic blood loss Emphysema lung Multiple lipomas History of elevated PSA BPH (benign prostatic hyperplasia) AVM (arteriovenous malformation) of colon Chronic GI bleeding Diverticular disease History of skin cancer Multiple lung nodules Cancer of kidney Essential thrombocythemia Femur fracture (~2020) CKD (chronic kidney disease), stage III Debility Pulmonary fibrosis Pulmonary embolism DVT (deep venous thrombosis) Obstructive sleep apnea Coronary artery disease CLL (chronic lymphocytic leukemia) Rhodes esophagus COPD (chronic obstructive pulmonary disease) Home Medications ?Medication ?Instructions ?Recorded ?Last Taken ?Type omeprazole 40 mg capsule,delayed 40 mg PO DAILY GERD 12/26/22 11/17/24 History release zolpidem 5 mg tablet 10 mg PO QHS PRN PRN sleep 12/26/22 03/15/24 History hydroxyurea 500 mg capsule 1,500 mg PO MOTUTHFRSA Chemo 12/17/23 03/16/24 History calcium carbonate (Calcium 600) 600 mg PO DAILY Supplement 02/03/24 03/16/24 History ascorbic acid (vitamin C) 500 mg 1 g PO DAILY Supplement 03/17/24 03/16/24 History tablet cholecalciferol (vitamin D3) 50 400 unit PO DAILY Nutrition 04/06/24 Unknown History mcg (2,000 unit) capsule (Vitamin D3) metoprolol succinate 100 mg 100 mg PO DAILY BP #90 tabs 05/05/24 11/17/24 Rx tablet,extended release 24 hr lactobacillus combination no.4 3 3,000 mmu cells PO QDAY 05/13/24 Unknown History billion cell capsule (Probiotic) multivitamin with minerals 1 cap PO DAILY Supplement 05/26/24 Unknown History acetaminophen 500 mg tablet 1,000 mg (2 x 500 mg) PO Q8 #0 tabs 07/07/24 Unknown Rx hydrocodone bitartrate 10 mg 10 mg PO Q12H 08/05/24 Unknown History capsule, oral only, extended rel 12 hr budesonide 0.5 mg/2 mL suspension 0.25 mg inhalation BID 10/22/24 Unknown History for nebulization rivaroxaban 20 mg tablet (Xarelto) 5 mg PO DAILY Blood Thinner 10/22/24 11/15/24 History azithromycin 250 mg tablet 250 mg PO ONCE 10/27/24 Unknown History evolocumab 140 mg/mL subcutaneous 140 mg subcut QMONTH 10/27/24 Unknown History pen injector (Repatha SureClick) amlodipine 2.5 mg tablet 2.5 mg PO QDAY #90 tabs 11/17/24 Unknown Rx escitalopram oxalate 10 mg tablet 15 mg PO DAILY 11/18/24 Unknown History Allergy/AdvReac Type Severity Reaction Status Date / Time Penicillins Allergy PT UNSURE Verified 11/18/24 10:58 OF REACTION fentanyl AdvReac Severe VISION Verified 11/18/24 14:30 PROBLEMS doxycycline AdvReac Unknown Upset Verified 11/18/24 10:58 Stomach Family History Father Myocardial infarction Heart disease CVA (cerebral vascular accident) Mother Colon cancer Surgical History History of embolic filter insertion History of hydrocelectomy (~12/2019) History of surgery on lower extremity (02/03/24) History of cardiac catheterization (~2018) S/P IVC filter (~2023) History of heart artery stent (~2018) History of hernia surgery (~2021) H/O kidney removal (~05/2017) History of bowel resection (~2005) Hx of tonsillectomy Social History household members: children and other details: Lives with daughter Haydee, who has a , 2 children. Smoking Status: Former smoker pack-years: 10 alcohol intake: never substance use type: does not use, former substance user and other details: marijuana ROS <NIKOLAS Christy - Last Filed: 11/18/24 15:38> ROS ED ROS Narrative Constitutional: Negative for fever, chills, malaise. Eyes: Positive for visual change. CVS: Negative for chest pain. Respiratory: Negative for shortness of breath. GI: Negative for abdominal pain, nausea, vomiting. EXAM <NIKOLAS Christy - Last Filed: 11/18/24 15:38> Physical Exam Narrative Exam Narrative: CONST: Patient sitting in no acute distress. EYES: Normal inspection. PERRL, EOMI, no visual field deficits. NECK: Normal inspection. RESP: No respiratory distress, coarse lung sounds. CVS: Regular rate and rhythm, no murmur, no gallop. SKIN: Color normal, no rash, warm, dry, intact. EXTREMITIES: Normal appearance, no pedal edema. NEURO: Alert and answering questions appropriately. Face symmetric, 5/5 upper and lower extremity strength, no drift of upper or lower extremities, normal finger-nose and [id number], normal sensation, normal speech. NIH is 0. PSYCH: Normal affect. Const Vital Signs: 11/18/24 10:57 11/18/24 12:51 Temperature 98 F Temperature Source Temporal Pulse Rate 92 73 Respiratory Rate 14 12 Blood Pressure 111/72 137/60 H Blood Pressure Mean 85 85 Pulse Ox 98 95 Oxygen Delivery Method Room Air Room Air <Dr. Quentin Montalvo DO - Last Filed: 11/18/24 16:45> Physical Exam Const Vital Signs: 11/18/24 10:57 11/18/24 12:51 Temperature 98 F Temperature Source Temporal Pulse Rate 92 73 Respiratory Rate 14 12 Blood Pressure 111/72 137/60 H Blood Pressure Mean 85 85 Pulse Ox 98 95 Oxygen Delivery Method Room Air Room Air MDM <NIKOLAS Christy - Last Filed: 11/18/24 15:38> [facility] Narrative Medical decision making narrative: History gathered from: Patient and daughter Differential: CVA, intraocular process 69-year-old male has had approximately 24 hours of bilateral blurry vision and diplopia. He presents outside of the acute stroke window. He is awake alert no distress. Vital stable. He has no visual field deficits on exam. The record from the eye clinic this morning show vision is 20/200 bilaterally. He has no other neurological deficits and his NIH is 0. Labs showed WBC of 24.5 consistent with his CLL. Hgb 10.8, PLT 297. Electrolytes are normal. BUN 32, creatinine 1.99 is his baseline. Glucose 120. Coags are pending. EKG shows normal sinus rhythm. CT brain shows no acute findings. CTA shows no LVO but there is high-grade stenosis at the origin of the LICA and 60% stenosis at the origin of the CARINA. Patient needs admitted for a stroke workup with MRI. I called the hospitalist for admission. Lab Data Attestation: I reviewed the patient's lab results. Labs: Laboratory Results - last 24 hr 11/18/24 11/18/24 11:45 12:57 WBC 24.5 H RBC 2.34 L Hgb 10.8 L Hct 32.3 L MCV 138.0 H MCH 46.2 H MCHC 33.4 RDW Std Deviation 73.9 H RDW Coeff of Susan 14.5 Plt Count 297 MPV 9.1 Immature Gran % (Auto) 0.400 Neut % (Auto) 7.6 L Lymph % (Auto) 66.2 H Pine % (Auto) 25.7 H Eos % (Auto) 0.0 Baso % (Auto) 0.1 Absolute Neuts (auto) 1.9 L Absolute Lymphs (auto) 16.22 H Nucleated RBC % 0.2 Differential Comment Diff Path Review May foll Smudge Cells 2+ PT 14.0 INR 1.1 APTT 25.7 Sodium 138 Potassium 4.9 Chloride 104 Carbon Dioxide 21.9 Anion Gap 13 BUN 32 H Creatinine 1.99 H Estim Creat Clear Calc 38.00 L Est GFR (MDRD) Non-Af 35 L BUN/Creatinine Ratio 16.3 Glucose 120 H Calcium 9.4 Radiography Diagnostic Testing: Clinical Impression(s) from Imaging Studies Brain CT 11/18/24 11:25 IMPRESSION: CHRONIC CHANGES. NO ACUTE FINDINGS. Pansinusitis. Reading Location: [facility] Head/Neck CTA 11/18/24 11:25 IMPRESSION: High-grade stenosis at the origin of the left internal carotid artery. 60% stenosis at the origin of the right internal carotid artery. Reading Location: [id number] <Dr. Quentin Montalvo, DO - Last Filed: 11/18/24 16:45> [facility] Lab Data Labs: Laboratory Results - last 24 hr 11/18/24 11/18/24 11:45 12:57 WBC 24.5 H RBC 2.34 L Hgb 10.8 L Hct 32.3 L MCV 138.0 H MCH 46.2 H MCHC 33.4 RDW Std Deviation 73.9 H RDW Coeff of Susan 14.5 Plt Count 297 MPV 9.1 Immature Gran % (Auto) 0.400 Neut % (Auto) 7.6 L Lymph % (Auto) 66.2 H Pine % (Auto) 25.7 H Eos % (Auto) 0.0 Baso % (Auto) 0.1 Absolute Neuts (auto) 1.9 L Absolute Lymphs (auto) 16.22 H Nucleated RBC % 0.2 Differential Comment Diff Path Review May foll Smudge Cells 2+ PT 14.0 INR 1.1 APTT 25.7 Sodium 138 Potassium 4.9 Chloride 104 Carbon Dioxide 21.9 Anion Gap 13 BUN 32 H Creatinine 1.99 H Estim Creat Clear Calc 38.00 L Est GFR (MDRD) Non-Af 35 L BUN/Creatinine Ratio 16.3 Glucose 120 H Calcium 9.4 Radiography Diagnostic Testing: Clinical Impression(s) from Imaging Studies Brain CT 11/18/24 11:25 IMPRESSION: CHRONIC CHANGES. NO ACUTE FINDINGS. Pansinusitis. Reading Location: [id number] Head/Neck CTA 11/18/24 11:25 IMPRESSION: High-grade stenosis at the origin of the left internal carotid artery. 60% stenosis at the origin of the right internal carotid artery. Reading Location: [facility] EKG Initial EKG: Attestation: I personally reviewed and interpreted this EKG as follows: Interpretation: Sinus Rhythm (75) and No Acute Injury Pattern Comments: EKG was obtained. On my independent interpretation, it showed a normal sinus rhythm with a rate of 75. TN interval, QRS interval, and QTc intervals were all normal. There is left axis deviation -70. There are no acute ST or T wave changes. Management Discussion w/another healthcare provider: Hospitalist Treatment and Re-Evaluation :: I have personally performed a face to face assessment of the patient and have reviewed the HANSA Note. I performed a substantive portion of the visit including all aspects of the following. My baum findings include: History: Patient presents with diplopia that began yesterday. Patient was having a lower extremity angiogram yesterday. Patient was given a dose of fentanyl during the procedure. Patient states that shortly after he was given the fentanyl, he started having double vision. Patient felt that it was medication related. Patient states the double vision has been persistent today. Patient followed up with his offset assistant press operator today since he had recent cataract surgery. Patient had 20/200 vision bilaterally at offset assistant press operator's office. Patient reports that the offset assistant press operator did not see any abnormalities with the cataract or the lens. Patient was then referred to the emergency department for possible stroke. Patient describes his vision as tilted. Patient also admits to a headache over the left side of his head. Exam: Vital signs are stable. Patient is afebrile. Patient is in no acute distress. Pupils are equal, round, and reactive to light bilaterally. Extraocular muscles are intact. There are no visual field deficits noted. Oral mucosa is pink and moist. Oropharynx is clear. Airway is patent. Cranial nerves II through XII are intact. There are no focal motor or sensory deficits noted. Heart with regular rate and rhythm. Lungs are clear and equal bilaterally. Abdomen is soft. Bowel sounds are normal. There is no tenderness. Medical Decision Making: Differential diagnosis includes stroke, electrolyte abnormality, intracranial bleeding, cardiac dysrhythmia, cardiac ischemia, and dehydration. CT scan of the brain will be obtained to assess for intracranial bleeding. CTA of the head and neck will be obtained to assess for large vessel occlusion. CBC will be obtained to assess for leukocytosis and anemia. Basic metabolic profile will be obtained to assess for electrolyte abnormality and renal function. EKG will be obtained to assess for cardiac dysrhythmia and cardiac ischemia. PT with INR and PTT will be obtained to assess for coagulopathy. EKG was obtained. On my independent interpretation, it shows a normal sinus rhythm with a rate of 75. TN interval was normal at 144 ms. QRS interval was normal at 92 ms. QTc interval was normal at 4 4 ms. There is left axis deviation at -70. There are no acute ST or T wave changes noted. CBC was reviewed. There is a leukocytosis of 24.5. Hemoglobin is stable at 10.8 and hematocrit is 32.3. These are consistent with previous results. PT with INR and PTT were reviewed and were within normal limits. Basic metabolic profile was reviewed. BUN was slightly elevated at 32 and creatinine was 1.99. Consistent with previous results. Hospitalist was paged for admission. He was in to evaluate the patient. He will admit the patient for observation. Patient and family understood and were agreeable with this plan. All questions were answered. Discharge Plan Dx/Rx/DC Orders Clinical Impression: Vision changes, Diplopia, CKD (chronic kidney disease), stage III Disposition Disposition: Acute Care Hospital [facility]
[2024-11-18 12:01] LABS: Hematocrit 32.3 % (40-54); Hemoglobin 10.8 g/dL (13.0-16.5); Immature Granulocytes Count 0.110 X10^3/uL (0.0-0.0); Mean Corp Hgb Conc 33.4 g/dL (32-36); Mean Corpuscular Volume 138.0 fL (80-94); Mean Platelet Vol. 9.1 fl (6.2-12.0); NRBC Flagged by Analyzer 0.2 % (0-5); POSITIVE DIFFERENTIAL YES; POSITIVE MORPHOLOGY YES; Platelet Count 297 K/mm3 (150-450); RBC Distribution Width CV 14.5 % (11.6-14.6); RBC Distribution Width SD 73.9 fl (35.1-43.9); Red Blood Count 2.34 M/mm3 (4.6-6.2); White Blood Count 24.5 K/mm3 (4.4-11.0)
[2024-11-18 12:18] LABS: Anion Gap 13 (5-15); BUN 32 mg/dL (4-19); BUN/Creat Ratio 16.3 RATIO (10-20); Calcium,Total 9.4 mg/dL (7.6-11.0); Carbon Dioxide 21.9 mmol/L (21.0-32.0); Chloride 104 mmol/L (98-108); Estimated Creatinine Clearance 38.00 ml/min (50-250); Glucose 120 mg/dL (70-99); Potassium 4.9 mmol/L (3.3-5.1)
[2024-11-18 12:44] LABS: Differential Indicated SCAN CRITERIA MET
[2024-11-18 12:45] LABS: Smudge Cells 2+
[2024-11-18 13:14] LABS: Partial Thromboplast Time 25.7 Seconds (24.1-36.2); Prothrombin Time (Protime)PT. 14.0 SECONDS (11.7-14.9)
--- NOTE | 2024-11-18 13:54 | ECHOD_ITS ---
Reason For Study Reason For Study: TIA/CVA Procedure This was a 2D Doppler, Color Flow transthoracic echocardiogram. The study was technically difficult. Due to supoptimal accoustic imaging windows. Deferred DEFINITY D/T LT nephrectomy. Exam performed in department. Left Ventricle Normal LV size. The estimated ejection fraction is 55 %. No regional wall motion abnormalities noted. Right Ventricle Normal RV size. Normal systolic function. Atria Normal left atrium. Prominent eustachian valve. Normal right atrium. No doppler evidence for ASD. Mitral Valve Mild mitral annular calcification. There is no mitral valve stenosis. Tricuspid Valve Normal tricuspid valve. Trivial tricuspid valve insufficiency. Pulmonary artery systolic pressure is 27 mmHg. Aortic Valve The aortic valve is not well visualized in the short axis view. There is no aortic stenosis. Pulmonic Valve The pulmonic valve is not well visualized. Great Vessels Normal aortic root. Pericardium/Pleural No pericardial effusion. MMode/2D Measurements & Calculations LVIDd: 5.5 cm IVSd: 1.0 cm LAV(MOD- bp): 47.9 ml LVIDs: 3.5 cm LVPWd: 1.0 cm LAV(MOD- bp) Indexed: 24.7 ml/m2 RVDd: 3.2 cm FS: 37.0 % LAV(MOD- sp2): 45.3 ml LAV(MOD- sp4): 44.5 ml SV(MOD-sp4): 69.4 ml SV(sp4- el): 72.6 ml LVAd ap4: 31.7 cm2 LVLd ap4: 7.5 cm SI(MOD-sp4): 35.7 ml/m2 EDV(MOD-sp4): 112.1 ml EDV(sp4-el): 113.8 ml LVAs ap4: 16.6 cm2 LVLs ap4: 5.7 cm ESV(MOD-sp4): 42.6 ml ESV(sp4-el): 41.2 ml EF(MOD-sp4): 62.0 % EF(sp4-el): 63.8 % LA A4 area: 16.1 cm2 LA dimension(2D): 3.9 cm RA A4 area: 14.4 cm2 TAPSE: 2.4 cm Time Measurements MV dec time: 0.20 sec Doppler Measurements & Calculations MV E max hiram: 58.1 cm/sec Lat Peak E' Hiram: 5.1 cm/sec Med Peak E' Hiram: 5.5 cm/sec MV A max hiram: 93.2 cm/sec E/E' lat: 11.5 E/E' med: 10.6 MV E/A: 0.62 MV V2 max: 113.9 cm/sec MV P1/2t max hiram: 73.3 cm/sec Ao V2 max: 189.9 cm/sec MV max P.2 mmHg MV P1/2t: 64.3 msec Ao max P.4 mmHg MV V2 mean: 56.5 cm/sec Ao V2 mean: 118.1 cm/sec MV mean P.5 mmHg MV dec slope: 333.9 cm/sec2 Ao mean P.4 mmHg MV V2 VTI: 21.6 cm MVA(P1/2t): 3.4 cm2 Ao V2 VTI: 35.9 cm AV (velocity ratio): 0.48 LV V1 max: 93.6 cm/sec PA V2 max: 96.6 cm/sec TR max hiram: 245.8 cm/sec LV V1 max P.5 mmHg PA V2 mean: 61.3 cm/sec TR max P.2 mmHg LV V1 mean P.5 mmHg PA V2 VTI: 16.3 cm LV V1 mean: 58.2 cm/sec LV V1 VTI: 17.3 cm ECHO/Echo Complete Interpretation Summary The estimated ejection fraction is 55 %. Mild mitral annular calcification. Normal LV systolic function The study was technically difficult. Ordering Physician: Quentin Chapman Referring Physician: Leighton Orozco Chi Performed By: Rosemarie Martin RDCS, RVT
--- NOTE | 2024-11-18 15:14 | CHAPLAIN ---
Type of Pastoral Visit _x__ Initial Visit ___ Follow-up Visit ___ On-call Visit ___ General Patient Visit ___ Spiritual Assessment ___ Family Conference ___ Bereavement ___ Rapid Response ___ Code Blue ___ Other (describe below) Pastoral Care Referral From _x__ Patient _x__ Family ___ Nurse ___ Physician ___ Network Contractor ___ Paraffin Machine Operator ___ Other (describe below) Sacrament/Intervention _x__ Active listening ___ Anointing ___ Zoroastrianism ___ Bereavement ___ Communion ___ Ashlyn exploration ___ ___ Life review _x__ Prayer ___ Reconciliation ___ Sacrament of Sick _x__ Supportive presence ___ Wedding ___ Other (describe below) Pastoral Comments this patient is in the ED after a medical procedure done yesterday; pt has been seen many times in this hospital; pt makes specific request to see this conduit worker; daughter is with him; pt expresses frustrations at the outcome of his procedure and the ongoing frustrations of going three steps forward and then ten steps back; pt is upset at this turn of events and is expressive of feelings; pt is given time to vent; pt is given calm response and a perspective of what positive things that can still happen; pt is able to list some good things that he has had happen in the recent past; pt welcomes presence and prayer and future visits if possible
--- NOTE | 2024-11-18 15:20 | HP.PCM.HOS_ITS ---
[facility] General Date of Service: 11/18/24 Chief Complaint: diplopia [facility] Narrative ADINA DAVID, is a 69 M who presents with diplopia. Patient underwent an angiogram yesterday with Dr. Boyer and then afterwards noticed that he was having left eye diplopia where things were at an intersecting angle. Symptoms do not get better. 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 In the emergency room, patient underwent CTA of his head and neck that showed high-grade stenosis of the origin of the left internal carotid and 6 point stenosis of the origin of the right internal carotid. For his angiogram, patient had stopped taking his rivaroxaban on Friday. Patient is on a lower dose due to history of bleeding. Takes it for history of paroxysmal atrial fibrillation. [facility] Medical History Kidney disease GI bleed Atrial fibrillation Myocardial infarct DVT (deep venous thrombosis) Segmental and somatic dysfunction of cervical region History of fracture of femur History of reduction of closed fracture Anxiety Bladder disease Prostate disease Low iron Pulmonary embolism History of diverticulitis History of GI bleed Former smoker CPAP (continuous positive airway pressure) dependence COPD (chronic obstructive pulmonary disease) Hypertension History of stress test History of echocardiogram Cardiology follow-up encounter Paroxysmal atrial fibrillation Tachycardia LAFB (left anterior fascicular block) PAD (peripheral artery disease) Hyperlipidemia Depression Loss of hearing Cancer Chronic cough Shortness of breath on exertion History of edema History of heart attack (~2018) Tia filter in place Peripheral neuropathy Insomnia GERD (gastroesophageal reflux disease) Essential (primary) hypertension Hypomagnesemia Mastoiditis of right side TIA (transient ischemic attack) Recurrent deep vein thrombosis (DVT) Depressive disorder due to another medical condition with depressive features History of pulmonary embolism History of DVT (deep vein thrombosis) Iron deficiency anemia due to chronic blood loss Emphysema lung Multiple lipomas History of elevated PSA BPH (benign prostatic hyperplasia) AVM (arteriovenous malformation) of colon Chronic GI bleeding Diverticular disease History of skin cancer Multiple lung nodules Cancer of kidney Essential thrombocythemia Femur fracture (~2020) CKD (chronic kidney disease), stage III Debility Pulmonary fibrosis Pulmonary embolism DVT (deep venous thrombosis) Obstructive sleep apnea Coronary artery disease CLL (chronic lymphocytic leukemia) Rhodes esophagus COPD (chronic obstructive pulmonary disease) Home Medications ?Medication ?Instructions ?Recorded ?Last Taken ?Type omeprazole 40 mg capsule,delayed 40 mg PO DAILY GERD 0 12/26/22 11/17/24 History release zolpidem 5 mg tablet 10 mg PO QHS PRN PRN sleep 0 12/26/22 03/15/24 History hydroxyurea 500 mg capsule 1,500 mg PO MOTUTHFRSA Chem o 12/17/23 03/16/24 History calcium carbonate (Calcium 600) 600 mg PO DAILY Supple ment 02/03/24 03/16/24 History ascorbic acid (vitamin C) 500 mg 1 g PO DAILY Suppleme nt 03/17/24 03/16/24 History tablet cholecalciferol (vitamin D3) 50 400 unit PO DAILY Nutr ition 04/06/24 Unknown History mcg (2,000 unit) capsule (Vitamin D3) metoprolol succinate 100 mg 100 mg PO DAILY BP #90 tab s 05/05/24 11/17/24 Rx tablet,extended release 24 hr lactobacillus combination no.4 3 3,000 mmu cells PO QD AY 05/13/24 Unknown History billion cell capsule (Probiotic) multivitamin with minerals 1 cap PO DAILY Supplement 0 05/26/24 Unknown History acetaminophen 500 mg tablet 1,000 mg (2 x 500 mg) PO Q 8 #0 tabs 07/07/24 Unknown Rx hydrocodone bitartrate 10 mg 10 mg PO Q12H 08/05/24 Un known History capsule, oral only, extended rel 12 hr budesonide 0.5 mg/2 mL suspension 0.25 mg inhalation B ID 10/22/24 Unknown History for nebulization rivaroxaban 20 mg tablet (Xarelto) 5 mg PO DAILY Blood Thinner 10/22/24 11/15/24 History azithromycin 250 mg tablet 250 mg PO ONCE 10/27/24 Unk nown History evolocumab 140 mg/mL subcutaneous 140 mg subcut QMONTH 10/27/24 Unknown History pen injector (Repatha SureClick) amlodipine 2.5 mg tablet 2.5 mg PO QDAY #90 tabs 10/06 Unknown Rx escitalopram oxalate 10 mg tablet 15 mg PO DAILY 11/18 Unknown History Allergy/AdvReac Type Severity Reaction Status Date / Time Penicillins Allergy PT UNSURE Verified 11/18/24 10:58 OF REACTION fentanyl AdvReac Severe VISION Verified 11/18/24 14:30 PROBLEMS doxycycline AdvReac Unknown Upset Verified 11/18/24 10:58 Stomach Family History Father Myocardial infarction Heart disease CVA (cerebral vascular accident) Mother Colon cancer Surgical History History of embolic filter insertion History of hydrocelectomy (~12/2019) History of surgery on lower extremity (02/03/24) History of cardiac catheterization (~2018) S/P IVC filter (~2023) History of heart artery stent (~2018) History of hernia surgery (~2021) H/O kidney removal (~05/2017) History of bowel resection (~2005) Hx of tonsillectomy Social History household members: children and other details: Lives with daughter Haydee, who has a , 2 children. Smoking Status: Former smoker pack-years: 10 alcohol intake: never substance use type: does not use, former substance user and other details: marijuana ROS ROS Narrative All review of systems were negative except as mentioned above in the history of present illness and the other review of systems. Vital Signs Vital Signs Vital Signs: 11/18/24 10:57 11/18/24 12:51 11/18/24 13:48 Temperature 36.6 C Temperature Source Temporal Pulse Rate 92 73 73 Respiratory Rate 14 12 14 Blood Pressure 111/72 137/60 H 152/74 H Blood Pressure Mean 85 85 100 Pulse Ox 98 95 95 Oxygen Delivery Method Room Air Room Air Room Air 11/18/24 14:00 Temperature 37.2 C Temperature Source Pulse Rate 67 Respiratory Rate 14 Blood Pressure 150/70 H Blood Pressure Mean 96 Pulse Ox 100 Oxygen Delivery Method Weight Weight: 78.9 kg Body Mass Index (BMI) 0.2 Physical Exam Const alert and no apparent distress HEENT normocephalic and head/scalp atraumatic Eyes PERRL and EOMs intact bilaterally Neck no lymphadenopathy Resp normal respiratory effort, no retractions, no use of accessory muscles and clear to auscultation bilaterally Cardio regular rate, regular rhythm, S1 normal heart sound and S2 normal heart sound GI normal to inspection, nondistended, normoactive bowel sounds, soft to palpation, non-tender and non-distended Extremity normal to inspection, full ROM and no clubbing, cyanosis or edema Neuro Neuro Narrative: Impaired vision in the left lower quadrant. Sensorium / Orientation: awake, alert, oriented to person, oriented to place and oriented to time Coordination / Balance: [id number] test normal and [id number] test normal Speech: speech normal Psych affect normal Results Lab / Micro Data Attestation: I reviewed the patient's lab results. 11/18/24 11:45 11/18/24 11:45 Labs: Laboratory Results - last 24 hr 11/18/24 11:45: WBC 24.5 H, RBC 2.34 L, Hgb 10.8 L, Hct 32.3 L, MCV 138.0 H, MCH 46.2 H, MCHC 33.4, RDW Std Deviation 73.9 H, RDW Coeff of Susan 14.5, Plt Count 297, MPV 9.1, Immature Gran % (Auto) 0.400, Neut % (Auto) 7.6 L, Lymph % (Auto) 66.2 H, [place] % (Auto) 25.7 H, Eos % (Auto) 0.0, Baso % (Auto) 0.1, Absolute Neuts (auto) 1.9 L, Absolute Lymphs (auto) 16.22 H, Nucleated RBC % 0.2, Differential Comment , Diff Path Review May foll, Smudge Cells 2+, Sodium 138, Potassium 4.9, Chloride 104, Carbon Dioxide 21.9, Anion Gap 13, BUN 32 H, C reatinine 1.99 H, Estim Creat Clear Calc 38.00 L, Est GFR (MDRD) Non-Af 35 L, BUN/Creatinine Ratio 16.3, Glucose 120 H, Calcium 9.4 11/18/24 12:57: PT 14.0, INR 1.1, APTT 25.7 Imaging Radiology Impression Brain CT 11/18/24 11:25 IMPRESSION: CHRONIC CHANGES. NO ACUTE FINDINGS. Pansinusitis. Reading Location: [id number] Head/Neck CTA 11/18/24 11:25 IMPRESSION: High-grade stenosis at the origin of the left internal carotid artery. 60% stenosis at the origin of the right internal carotid artery. Reading Location: [id number] Assessment & Plan Assessment/Plan (1) Diplopia: PLAN: Concern for CVA. Patient has multiple risk factors including paroxysmal atrial fibrillation being off anticoagulation but also PAD with noted carotid stenosis. Plan is to continue with stroke workup and MRI of the brain, echocardiogram, therapy evaluation Start aspirin. Will continue to hold off on his rivaroxaban for now until we get further stroke workup. [facility] teleneurology consultation. Patient had the window for TNK as symptoms began roughly 24 hours prior to presentation. PLAN: Plan Carotid stenosis: Discussed with Dr. Boyer. Recommends outpatient follow-up where those can be further addressed. Paroxysmal atrial fibrillation: Holding off on rivaroxaban for now. Patient is on a lower dose at 10 mg daily due to history of bleeding from removal of skin cancer from his arms GERD/Rhodes's: Continue with PPI VTE prophylaxis: Holding off right now given current observation status. Medical plan is for the patient to resume his rivaroxaban based on MRI findings. CODE STATUS: Addressed with the patient. Patient wishes to be full code. Discussed with the patient's daughter at bedside. Charges/Coding Visit Charges Inpatient E&M: 12261 Init Hosp L3
--- NOTE | 2024-11-18 17:06 | MRI_ITS ---
PROCEDURE: MR BRAIN WITHOUT CONTRAST 11/18/2024 REASON FOR EXAM: CVA TECHNIQUE: Multiplanar and multisequential MRI of the brain was performed without contrast. COMPARISON: CT head/angiography earlier today 11/18/2024. FINDINGS: No regions of abnormal restricted diffusion to indicate recent infarct. No evidence of intracranial hemorrhage, extra-axial collection, mass effect, or other acute abnormality. Mild age-appropriate generalized brain parenchymal volume loss. Minimal scattered foci of leukoaraiosis. Probable tiny focus of chronic lacunar infarct in the left cerebellar hemisphere. Preserved major vascular flow voids. Absent ekwok ocular lenses. Mucosal thickening throughout the bilateral maxillary and sphenoid sinuses and ethmoid air cells. Nonspecific bilateral mastoid effusions. MRI/Brain without Contrast IMPRESSION: 1. No acute intracranial abnormality; No acute infarct. 2. Mild volume loss and minimal leukoaraiosis. 3. Paranasal sinus disease, and nonspecific bilateral mastoid effusions. Reading Location: [id number]
[2024-11-18] MEDS: Budesonide Respules 0.5 MG/2 ML AMPUL.NEB. 0.25 MG INHALATION (20:39)
[2024-11-18] MEDS: 0.9% Saline Lock 10 ML Syringe IV (22:34)
[2024-11-19] VITALS (8 sets, daily range): BP systolic 127–151; BP diastolic 58–77; PULSE 66–82; RESP 16–18; TEMP 36.6–37.2; O2SAT 95–100; BMI 25.2
[2024-11-19 08:16] LABS: Cholesterol 76 mg/dL (<=200); Low Density Lipoprotein Calc. 15 mg/dL; Triglycerides 74 mg/dL; Very Low Density Lipoprotein 15 mg/dL (5-40); cholesterol:hdl ratio screen 1.65
[2024-11-19] MEDS: Metoprolol(XL)Succ 100 MG Tablet PO (10:04)
[2024-11-19] MEDS: HYDROcodone Bitartrate/Apap 5/325 Tablet PO ×2 (10:12→21:09)
--- NOTE | 2024-11-19 12:29 | NEURO.CONS ---
Assessment and Plan: Neuro Assessment/Plan ADINA DAVID is a 69 M , being evaluated by Teleneurology for double vision. He told me that his symptoms started right after he received dose of fentanyl and has been described as binocular double vision with images on top of each other which gets better when each closed . Symptoms are worse with left eye ,worse when looking down. His EOM are intact Also complained of blurry vision worse on the left eye and wear glasses for that . Denies any other neurological symptoms. Given episodic nature,recommend checking MG panel. MRI brain negative for acute pathology .Ct angio with high grade stenosis. Recommend checking Carotid US for that . I wonder if there was hypotensive episode after receiving fentanyl dose contributing to eye stroke?however it should not cause double vision but instead blurry/loss of vision Would also recommend transfer to [facility] for ophthalmology evaluation. Transfer to [facility] for the following reasons: ophthalmology evaluation. I personally attended this patient and spent a total time of 55 minutes evaluating this patient including clinical assessment, review of chart, medical history imaging, and determining appropriate treatment and workup. HPI Consult Data Date of Consult: 11/19/24 HPI Narrative HPI Narrative: As per HPI, 69 M who presents with diplopia. Patient underwent an angiogram yesterday with Dr. Boyer and then afterwards noticed that he was having left eye diplopia where things were at an intersecting angle. Symptoms do not get better. He did recently have lens implant for cataracts placed and saw his window shade installer today and said that the lens implant was in place and not the cause of his symptoms and instructed go to the emergency room. In the emergency room, patient underwent CTA of his head and neck that showed high-grade stenosis of the origin of the left internal carotid and 6 point stenosis of the origin of the right internal carotid. For his angiogram, patient had stopped taking his rivaroxaban on Friday. Patient is on a lower dose due to history of bleeding. Takes it for history of paroxysmal atrial fibrillation. He told me that his symptoms started right after he received dose of fentanyl and has been described as binocular double vision with images on top of each other which gets better when he closes eye . Symptoms are worse wiht left eye worse when looking down.Also complained of blurry vision worse on the left eye and wear glasses for that . Denies any other neurological symptoms. COUNTS INCLUDE 234 BEDS AT THE [facility] Medical History Kidney disease GI bleed Atrial fibrillation Myocardial infarct DVT (deep venous thrombosis) Segmental and somatic dysfunction of cervical region History of fracture of femur History of reduction of closed fracture Anxiety Bladder disease Prostate disease Low iron Pulmonary embolism History of diverticulitis History of GI bleed Former smoker CPAP (continuous positive airway pressure) dependence COPD (chronic obstructive pulmonary disease) Hypertension History of stress test History of echocardiogram Cardiology follow-up encounter Paroxysmal atrial fibrillation Tachycardia LAFB (left anterior fascicular block) PAD (peripheral artery disease) Hyperlipidemia Depression Loss of hearing Cancer Chronic cough Shortness of breath on exertion History of edema History of heart attack (~2018) Tia filter in place Peripheral neuropathy Insomnia GERD (gastroesophageal reflux disease) Essential (primary) hypertension Hypomagnesemia Mastoiditis of right side TIA (transient ischemic attack) Recurrent deep vein thrombosis (DVT) Depressive disorder due to another medical condition with depressive features History of pulmonary embolism History of DVT (deep vein thrombosis) Iron deficiency anemia due to chronic blood loss Emphysema lung Multiple lipomas History of elevated PSA BPH (benign prostatic hyperplasia) AVM (arteriovenous malformation) of colon Chronic GI bleeding Diverticular disease History of skin cancer Multiple lung nodules Cancer of kidney Essential thrombocythemia Femur fracture (~2020) CKD (chronic kidney disease), stage III Debility Pulmonary fibrosis Pulmonary embolism DVT (deep venous thrombosis) Obstructive sleep apnea Coronary artery disease CLL (chronic lymphocytic leukemia) Rhodes esophagus COPD (chronic obstructive pulmonary disease) Home Medications ?Medication ?Instructions ?Recorded ?Last Taken ?Type omeprazole 40 mg capsule,delayed 40 mg PO DAILY GERD 12/26/22 11/17/24 History release zolpidem 5 mg tablet 10 mg PO QHS PRN PRN sleep 12/26/22 03/15/24 History hydroxyurea 500 mg capsule 1,500 mg PO MOTUTHFRSA Chemo 12/17/23 03/16/24 History calcium carbonate (Calcium 600) 600 mg PO DAILY Supplement 02/03/24 03/16/24 History ascorbic acid (vitamin C) 500 mg 1 g PO DAILY Supplement 03/17/24 03/16/24 History tablet cholecalciferol (vitamin D3) 50 400 unit PO DAILY Nutrition 04/06/24 Unknown History mcg (2,000 unit) capsule (Vitamin D3) metoprolol succinate 100 mg 100 mg PO DAILY BP #90 tabs 05/05/24 11/17/24 Rx tablet,extended release 24 hr lactobacillus combination no.4 3 3,000 mmu cells PO QDAY 05/13/24 Unknown History billion cell capsule (Probiotic) multivitamin with minerals 1 cap PO DAILY Supplement 05/26/24 Unknown History acetaminophen 500 mg tablet 1,000 mg (2 x 500 mg) PO Q8 #0 tabs 07/07/24 Unknown Rx hydrocodone bitartrate 10 mg 10 mg PO Q12H 08/05/24 Unknown History capsule, oral only, extended rel 12 hr budesonide 0.5 mg/2 mL suspension 0.25 mg inhalation BID 10/22/24 Unknown History for nebulization rivaroxaban 20 mg tablet (Xarelto) 5 mg PO DAILY Blood Thinner 10/22/24 11/15/24 History azithromycin 250 mg tablet 250 mg PO ONCE 10/27/24 Unknown History evolocumab 140 mg/mL subcutaneous 140 mg subcut QMONTH 10/27/24 Unknown History pen injector (Kenji Hennessy) amlodipine 2.5 mg tablet 2.5 mg PO QDAY #90 tabs 11/17/24 Unknown Rx escitalopram oxalate 10 mg tablet 15 mg PO DAILY 11/18/24 Unknown History Allergy/AdvReac Type Severity Reaction Status Date / Time Penicillins Allergy PT UNSURE Verified 11/18/24 10:58 OF REACTION fentanyl AdvReac Severe VISION Verified 11/18/24 14:30 PROBLEMS doxycycline AdvReac Unknown Upset Verified 11/18/24 10:58 Stomach Family History Father Myocardial infarction Heart disease CVA (cerebral vascular accident) Mother Colon cancer Surgical History History of embolic filter insertion History of hydrocelectomy (~12/2019) History of surgery on lower extremity (02/03/24) History of cardiac catheterization (~2018) S/P IVC filter (~2023) History of heart artery stent (~2018) History of hernia surgery (~2021) H/O kidney removal (~05/2017) History of bowel resection (~2005) Hx of tonsillectomy Social History household members: children and other details: Lives with daughter Haydee, who has a , 2 children. Smoking Status: Former smoker pack-years: 10 alcohol intake: never substance use type: does not use, former substance user and other details: marijuana Vital Signs Vital Signs Vital Signs: 11/18/24 12:51 11/18/24 13:48 11/18/24 14:00 Temperature 98.9 F Temperature Source Pulse Rate 73 73 67 Pulse Strength Respiratory Rate 12 14 14 Respiratory Effort Respiratory Depth Respiratory Pattern Blood Pressure 137/60 H 152/74 H 150/70 H Blood Pressure Mean 85 100 96 Blood Pressure Source Blood Pressure Position Blood Pressure Location Pulse Ox 95 95 100 Oxygen Delivery Method Room Air Room Air 11/18/24 15:00 11/18/24 16:00 11/18/24 16:57 Temperature 98.7 F Temperature Source Oral Pulse Rate 72 70 71 Pulse Strength Respiratory Rate 14 14 20 H Respiratory Effort Respiratory Depth Respiratory Pattern Blood Pressure 162/66 H 153/63 H 151/68 H Blood Pressure Mean 98 93 95 Blood Pressure Source Monitor Blood Pressure Position Semi-Fowlers Blood Pressure Location Left Arm Pulse Ox 98 98 97 Oxygen Delivery Method Room Air Room Air Room Air 11/18/24 18:00 11/18/24 19:57 11/18/24 20:02 Temperature 98.4 F Temperature Source Oral Pulse Rate 73 Pulse Strength Respiratory Rate 17 Respiratory Effort Normal Non-Labored Normal Non-Labored Respiratory Depth Normal Normal Respiratory Pattern Normal Normal Blood Pressure 113/67 Blood Pressure Mean 82 Blood Pressure Source Monitor Blood Pressure Position Semi-Fowlers Blood Pressure Location Right Arm Pulse Ox 97 Oxygen Delivery Method Room Air Room Air Room Air 11/18/24 20:38 11/18/24 20:38 11/19/24 02:02 Temperature 98.9 F Temperature Source Oral Pulse Rate 71 66 Pulse Strength Respiratory Rate 12 18 Respiratory Effort Respiratory Depth Respiratory Pattern Normal Blood Pressure 127/58 H Blood Pressure Mean 81 Blood Pressure Source Monitor Blood Pressure Position Semi-Fowlers Blood Pressure Location Left Arm Pulse Ox 95 100 Oxygen Delivery Method Room Air Room Air 11/19/24 06:40 11/19/24 07:00 11/19/24 08:00 Temperature 97.9 F Temperature Source Oral Pulse Rate 68 66 Pulse Strength Respiratory Rate 18 Respiratory Effort Respiratory Depth Respiratory Pattern Blood Pressure 151/77 H Blood Pressure Mean 101 Blood Pressure Source Monitor Blood Pressure Position Supine Blood Pressure Location Left Arm Pulse Ox 98 Oxygen Delivery Method Room Air Room Air 11/19/24 08:18 11/19/24 10:04 Temperature Temperature Source Pulse Rate 66 Pulse Strength Normal (2+) Respiratory Rate Respiratory Effort Respiratory Depth Respiratory Pattern Blood Pressure 151/77 H Blood Pressure Mean Blood Pressure Source Blood Pressure Position Blood Pressure Location Pulse Ox Oxygen Delivery Method Weight Weight: 77.5 kg Body Mass Index (BMI) 25.2 Physical Exam Neuro Neuro Narrative: -? General: Laying comfortably in bed; in no acute distress. -? HENT: Normal oropharynx and mucosa. Normal external appearance of ears and nose. Exophthalmos. -? Neck: Supple, no pain or tenderness -? CV:? No peripheral edema. -? Pulmonary:? Normal respiratory effort. -? Ext: No cyanosis, edema, or deformity -? Skin: No rash. Normal palpation of skin.? -? Musculoskeletal: full range of motion; no joint tenderness. Normal digits and nails by inspection. No clubbing. -? NEURO: -? Mental Status: The patient was alert and oriented to time, place, and person. Normal recent/remote memory, concentration, and general fund of knowledge. -? Language: speech is normal.? Naming, repetition, fluency, and comprehension intact. -? Cranial Nerves: . EOMI, visual morales full, no facial asymmetry, facial sensation intact, hearing intact, tongue midline, no evidence of atrophy or fibrillations. As performed by the nurse Sternocleidomastoid and trapezius were equally strong. Soft palate raises equally, no uvular deviations -? Motor: normal bulk, tone, and strength throughout. No pronator drift or satelliting. Upper and lower extremities equal bilaterally. R L PF R -? Tone: is normal and bulk is normal -? Sensation- Intact to light touch bilaterally -? Coordination: No dysmetria on [id number], finger follow finger or [id number]. Lab / Micro Data 11/18/24 11:45 11/18/24 11:45 Labs: Laboratory Results - last 24 hr 11/18/24 11:45: WBC 24.5 H, RBC 2.34 L, Hgb 10.8 L, Hct 32.3 L, MCV 138.0 H, MCH 46.2 H, MCHC 33.4, RDW Std Deviation 73.9 H, RDW Coeff of Susan 14.5, Plt Count 297, MPV 9.1, Immature Gran % (Auto) 0.400, Neut % (Auto) 7.6 L, Lymph % (Auto) 66.2 H, Greenlee % (Auto) 25.7 H, Eos % (Auto) 0.0, Baso % (Auto) 0.1, Absolute Neuts (auto) 1.9 L, Absolute Lymphs (auto) 16.22 H, Nucleated RBC % 0.2, Differential Comment , Diff Path Review May foll, Smudge Cells 2+ 11/18/24 12:57: PT 14.0, INR 1.1, APTT 25.7 11/19/24 06:52: Triglycerides 74, Cholesterol 76, LDL Cholesterol, Calc 15, VLDL Cholesterol 15, HDL Cholesterol 46, Cholesterol/HDL Ratio 1.65 Imaging Radiology Impression Brain CT 11/18/24 11:25 IMPRESSION: CHRONIC CHANGES. NO ACUTE FINDINGS. Pansinusitis. Reading Location: [id number] Head/Neck CTA 11/18/24 11:25 IMPRESSION: High-grade stenosis at the origin of the left internal carotid artery. 60% stenosis at the origin of the right internal carotid artery. Reading Location: [id number] Brain MRI 11/18/24 17:06 IMPRESSION: 1. No acute intracranial abnormality; No acute infarct. 2. Mild volume loss and minimal leukoaraiosis. 3. Paranasal sinus disease, and nonspecific bilateral mastoid effusions. Reading Location: [facility] Active Medications Active Medications Active Medications: Current Medications Generic Name Dose Route Start Last Admin Trade Name Santino PRN Reason Stop Dose Admin Acetaminophen 1,000 mg 11/18/24 17:06 11/19/24 06:03 Acetaminophen 500 Mg Tablet PO 1,000 mg Q8 FELICITY Administration Hydrocodone Bitart/Acetaminophen 1 tablet 11/18/24 17:06 11/19/24 10:12 Hydrocodone Bitartrate/Apap 5/325 Tablet PO 1 tablet BID PRN Administration Pain Score 1-10 Amlodipine Besylate 2.5 mg 11/19/24 10:00 11/19/24 10:04 Amlodipine 2.5 Mg Tablet PO 2.5 mg DAILY FELICITY Administration Protocol Aspirin 81 mg 11/19/24 08:00 11/19/24 10:04 Aspirin 81 Mg Tab.Chew PO 81 mg BREAKFAST FELICITY Administration Azithromycin 250 mg 11/19/24 10:00 11/19/24 10:04 Azithromycin 250 Mg Tablet PO 250 mg [id number]@1000 FELICITY Administration Budesonide 0.25 mg 11/18/24 22:00 11/18/24 20:39 Budesonide Respules 0.5 Mg/2 Ml Ampul.Neb. INHALATION 0.25 mg BID.RT FELICITY Administration Calcium Carbonate 500 mg 11/19/24 10:00 11/19/24 10:04 Calcium Carbonate 500 Mg Tablet PO 500 mg DAILY FELICITY Administration Escitalopram Oxalate 15 mg 11/19/24 10:00 11/19/24 10:05 Escitalopram Oxalate 10 Mg Tablet PO 15 mg DAILY FELICITY Administration Hydralazine HCl 5 mg 11/18/24 17:06 Hydralazine 20 Mg/Ml Vial IV 11/19/24 17:06 Q30M PRN maintain BP parameters with HR <60 Hydroxyurea 1,500 mg 11/19/24 10:00 11/19/24 10:06 Hydroxyurea 500 Mg Capsule PO 1,500 mg [id number]@1000 FELICITY Administration Sodium Chloride 250 mls @ 15 mls/hr 11/18/24 16:56 IV .[id number] PRN Saline Flush Sodium Chloride 250 mls @ 15 mls/hr 11/18/24 16:56 IV .[id number] PRN Additional IVPB Infusion Labetalol HCl 10 - 20 mg 11/18/24 17:06 Labetalol 20 Mg/4 Ml Vial IV 11/19/24 17:06 Q10M PRN PRN maintain BP parameters with HR >/=60 Metoprolol Succinate 100 mg 11/19/24 10:00 11/19/24 10:04 Metoprolol(Xl)Succ 100 Mg Tablet PO 100 mg DAILY FELICITY Administration Protocol Pantoprazole Sodium 40 mg 11/19/24 10:00 11/19/24 10:04 Pantoprazole Sodium 40 Mg Tablet PO 40 mg DAILY FELICITY Administration Rivaroxaban 5 mg 11/19/24 17:00 Rivaroxaban 2.5 Mg Tablet PO DINNER FELICITY Sodium Chloride 10 - 40 ml 11/18/24 16:56 11/18/24 22:34 0.9% Saline Lock 10 Ml Syringe IV 10 ml UD PRN Administration SALINE FLUSH Zolpidem Tartrate 10 mg 11/18/24 17:06 11/18/24 22:33 Zolpidem Tartrate 5 Mg Tablet PO 10 mg QHS PRN PRN Administration sleep NIHSS NIHSS Nursing Documentation NIHSS Nursing Documentation: NIH Stroke Scale Start: 11/18/24 12:52 Freq: Status: Discharge Protocol: Activity Type Activity Date Activity User E-sign Co-sign Detail Recorded Client Recorded Date Recorded By Document 11/18/24 12:52 MARA [id number] 11/18/24 12:52 MARA 11/18/24 12:52 NIH Stroke Scale [NIHSS] A score of 0 is normal or asymptomatic . Total possible score is 42. Inpatient: RN or Physician to activate a stroke alert for onset of new stroke symptoms or with NIHSS increase >/= 3 points. Following change in neurological status, NIHSS will be performed per physician order or more frequently PRN. -1a. Level of Consciousness 0 - Alert; keenly responsive -1b. LOC Questions 0 - Answers BOTH questions correctly -1c. LOC Commands 0 - Performs BOTH tasks correctly -2. Best Gaze 0 - Normal -3. Visual 0 - No visual loss -4. Facial Palsy 0 - Normal symmetrical movements -5a. Left Arm 0 - No drift; arm holds 90 ( or 45) degrees for full 10 seconds -5b. Right Arm 0 - No drift; arm holds 90 ( or 45) degrees for full 10 seconds -6a. Left Leg 0 - No drift; leg holds 30- degree position for full 5 seconds -6b. Right Leg 0 - No drift; leg holds 30- degree position for full 5 seconds -7. Limb Ataxia 0 - Absent -8. Sensory 0 - Normal; no sensory loss -9. Best Language 0 - No aphasia; normal -10. Dysarthria 0 - Normal -11. Extinction and Inattention 0 - No abnormality -Total 0 Query Text:A score of 0 is normal or asymptomatic. Total possible score is 42 . ED: Notify Physician for NIHSS increase by > / = 3 points. Inpatient: RN or Physician to activate a stroke alert for NIHSS increase of > / = 3 points. NIHSS: Ischemic Stroke/TIA Start: 11/18/24 17:06 Text: For PCU Patients: NIH and Neuro Check every 4 Status: Complete hours, PRN and with change in RN caregiver. Freq: Q4H Protocol: Activity Type Activity Date Activity User E-sign Co-sign Detail Recorded Client Recorded Date Recorded By Document 11/18/24 20:00 [id number] 11/18/24 20:14 11/18/24 20:00 -1a. Level of Consciousness 0 - Alert; keenly responsive -1b. LOC Questions 0 - Answers BOTH questions correctly -1c. LOC Commands 0 - Performs BOTH tasks correctly -2. Best Gaze 0 - Normal -3. Visual 0 - No visual loss -4. Facial Palsy 0 - Normal symmetrical movements -5a. Left Arm 0 - No drift; arm holds 90 ( or 45) degrees for full 10 seconds -5b. Right Arm 0 - No drift; arm holds 90 ( or 45) degrees for full 10 seconds -6a. Left Leg 0 - No drift; leg holds 30- degree position for full 5 seconds -6b. Right Leg 0 - No drift; leg holds 30- degree position for full 5 seconds -7. Limb Ataxia 0 - Absent -8. Sensory 0 - Normal; no sensory loss -9. Best Language 0 - No aphasia; normal -10. Dysarthria 0 - Normal -11. Extinction and Inattention 0 - No abnormality -Total 0 Query Text:A score of 0 is normal or asymptomatic. Total possible score is 42 . ED: Notify Physician for NIHSS increase by > / = 3 points. Inpatient: RN or Physician to activate a stroke alert for NIHSS increase of > / = 3 points. Coma Scale [Assess] -Eye Opening Spontaneous -Motor Obeys Commands -Verbal Oriented [Total] -Coma Scale Total 15
--- NOTE | 2024-11-19 14:53 | CASEMGMT ---
RIBERA Pt declined to allow this copywriter to review RIBERA form and declined to sign. Copy provided to pt and original placed in chart. Aria Ortega DC Planning Asst.
--- NOTE | 2024-11-19 15:53 | CHAPLAIN ---
Type of Pastoral Visit ___ Initial Visit _x__ Follow-up Visit ___ On-call Visit ___ General Patient Visit ___ Spiritual Assessment ___ Family Conference ___ Bereavement ___ Rapid Response ___ Code Blue ___ Other (describe below) Pastoral Care Referral From _x__ Patient ___ Family ___ Nurse ___ Physician ___ Chain Carrier ___ Hat Lining Paster ___ Other (describe below) Sacrament/Intervention __x_ Active listening ___ Anointing ___ Pentecostalism ___ Bereavement ___ Communion _x__ Ashlyn exploration ___ _x__ Life review _x__ Prayer ___ Reconciliation ___ Sacrament of Sick _x__ Supportive presence ___ Wedding ___ Other (describe below) Pastoral Comments patient continues to have double vision issues; pt is frustrated and expresses his 'bad luck', 'distrust', and 'annoyance'; calming presence, listening ear, offer of hope, are all given to patient; pt goes through some of his life review again; pt acknowledges that he has to believe in something beyond himself even when he has questions or doubts; pt expresses thanks for listening and being available to him; pt welcomes prayer
--- NOTE | 2024-11-19 16:26 | CASEMGMT ---
Social Work Per physician, pt did not have stroke. PHQ9 not completed. AMOR Dillard
--- NOTE | 2024-11-19 16:51 | PN_ITS ---
Subjective Subjective Patient seen and examined. He still complains of double vision. He has no other complaints and review of systems otherwise negative. MRI is negative for any evidence of a stroke. Objective Data Objective Data Vital Signs: Vital Signs Temp Pulse Resp BP Pulse Ox O2 Del Method 98.4 F 72 16 135/68 H 98 Room Air 11/19/24 15:12 11/19/24 15:12 11/19/24 15:12 11/19/24 15:12 11/19/24 15:12 11/19/24 15:12 Oxygen Delivery Method Room Air Weight: 170 lb 13.732 oz Body Mass Index (BMI) 25.2 Intake & Output: Intake and Output for Last 24 Hours 11/17/24 11/18/24 11/19/24 23:59 23:59 23:59 Intake Total 500 / 500 Output Total 300 / 300 Balance 200 / 200 Lab / Micro Data 11/18/24 11:45 11/18/24 11:45 Labs: Laboratory Results - last 24 hr 11/19/24 06:52: Triglycerides 74, Cholesterol 76, LDL Cholesterol, Calc 15, VLDL Cholesterol 15, HDL Cholesterol 46, Cholesterol/HDL Ratio 1.65 Radiography Diagnostic Testing: Radiology Impression Echocardiogram 11/18/24 13:54 Interpretation Summary The estimated ejection fraction is 55 %. Mild mitral annular calcification. Normal LV systolic function The study was technically difficult. Ordering Physician: Quentin Chapman Referring Physician: Leighton Orozco Chi Performed By: Rosemarie Martin, RDCS, RVT Brain MRI 11/18/24 17:06 IMPRESSION: 1. No acute intracranial abnormality; No acute infarct. 2. Mild volume loss and minimal leukoaraiosis. 3. Paranasal sinus disease, and nonspecific bilateral mastoid effusions. Reading Location: [id number] Physical Exam Const alert, oriented x3 and no apparent distress General Appearance: cooperative and well developed HEENT normocephalic, head/scalp atraumatic, moist oral mucous membranes and oropharynx normal Eyes PERRL and EOMs intact bilaterally Eyes Narrative: Double vision has resolved at time of my review. Neck supple Lymph Lymphatic: no lymphedema noted Resp normal respiratory effort, normal air movement and clear to auscultation bilaterally Cardio regular rate, regular rhythm, S1 normal heart sound, S2 normal heart sound and no murmurs GI normal to inspection, nondistended, normoactive bowel sounds, soft to palpation, non-tender and non-distended Extremity normal capillary refill, no clubbing, cyanosis or edema and no calf tenderness General Extremity: no tenderness to palpation of joints or extremities Skin General Skin Exam: no breakdown Neuro no focal motor deficits and no sensory deficits noted Neuro Narrative: Double vision has largely resolved at time of review. Motor Exam: strength 5/5 throughout Psych thought process normal and cooperative Appearance: appropriate Assessment & Plan Assessment/Plan (1) Diplopia: PLAN: Plan #Diplopia * Patient states he was having a procedure with vascular surgery was given fentanyl and subsequently started having diplopia. He went to see his eye doctor who ruled out any eye pathology. * Was therefore sent to the ER to rule out a stroke. CT of the brain and MRI of the brain all negative for stroke. CTA of the head and neck did show bilateral carotid stenosis and this was discussed with vascular surgery who recommended that he could follow-up on outpatient basis * He is on aspirin and high intensity statin. [facility] neurology reviewed patient and are recommending transfer to [facility] for ophthalmology review due to concerns about possible myasthenia gravis. Recommend checking myasthenia gravis panel. Awaiting transfer to [facility] for ophthalmology evaluation. * PT OT on board. Fall precautions. * 2D echo showed EF of 55% with normal left ventricular systolic function * #Peripheral artery disease: S/p right lower extremity angiogram done on 11/17/2024. He does have a history of right femoral extensive endarterectomy. on aspirin and statin. On evolocumab. #Hypertension; on amlodipine and metoprolol #GERD: on PPI #History of afib: on xarelto. On metoprolol. DVT prophylaxis: on xarelto Disposition: Awaiting transfer to [facility] neurology recommendation # Charges/Coding Visit Charges Inpatient E&M: 37342 Subs Hosp L2
--- NOTE | 2024-11-19 18:42 | DS.PCM_ITS ---
Providers Date of Admission: 11/18/24 Date of Discharge: 11/19/24 Primary Care Physician: Dr. Leighton Orozco MD Consultations 11/18/24 17:06 Consult: Tele-Neurology Routine Consulting Provider: [facility] Reason for Consult: Acute Ischemic Stroke/TIA EMERGENT Consult: No MD Notified: Yes Date Notified: 11/18/24 Time Notified: 17:31 Method of Notification: Answering Service Nursing Unit Staff Notify [facility] of Tele-Neurology Consult: Yes Reason For Visit: VISUAL CHANGES Diagnosis Discharge Diagnosis (1) Diplopia: Status: Acute Code(s): H53.2 - Diplopia Plan #Diplopia * Patient states he was having a procedure with vascular surgery was given fentanyl and subsequently started having diplopia. He went to see his eye doctor who ruled out any eye pathology. * Was therefore sent to the ER to rule out a stroke. CT of the brain and MRI of the brain all negative for stroke. CTA of the head and neck did show bilateral carotid stenosis and this was discussed with vascular surgery who recommended that he could follow-up on outpatient basis * He is on aspirin and high intensity statin. [facility] reviewed patient and are recommending transfer to [facility] for ophthalmology review due to concerns about possible myasthenia gravis. Recommend checking myasthenia gravis panel. Awaiting transfer to [facility] for ophthalmology evaluation. * PT OT on board. Fall precautions. * 2D echo showed EF of 55% with normal left ventricular systolic function * #Peripheral artery disease: S/p right lower extremity angiogram done on 11/17/2024. He does have a history of right femoral extensive endarterectomy. on aspirin and statin. On evolocumab. #Hypertension; on amlodipine and metoprolol #GERD: on PPI #History of afib: on xarelto. On metoprolol. DVT prophylaxis: on xarelto Disposition: Awaiting transfer to [facility] neurology recommendation # Medications at Discharge Home Medications omeprazole 40 mg capsule,delayed release 40 mg PO DAILY GERD 12/26/22 zolpidem 5 mg tablet 10 mg PO QHS PRN PRN sleep 12/26/22 hydroxyurea 500 mg capsule 1,500 mg PO MOTUTHFRSA Chemo 12/17/23 calcium carbonate (Calcium 600) 600 mg PO DAILY Supplement 02/03/24 ascorbic acid (vitamin C) 500 mg tablet 1 g PO DAILY Supplement 03/17/24 cholecalciferol (vitamin D3) 50 mcg (2,000 unit) capsule (Vitamin D3) 400 unit PO DAILY Nutrition 04/06/24 metoprolol succinate 100 mg tablet,extended release 24 hr 100 mg PO DAILY BP #90 tabs 05/05/24 lactobacillus combination no.4 3 billion cell capsule (Probiotic) 3,000 mmu cells PO QDAY 05/13/24 multivitamin with minerals 1 cap PO DAILY Supplement 05/26/24 acetaminophen 500 mg tablet 1,000 mg (2 x 500 mg) PO Q8 #0 tabs 07/07/24 hydrocodone bitartrate 10 mg capsule, oral only, extended rel 12 hr 10 mg PO Q12H 08/05/24 budesonide 0.5 mg/2 mL suspension for nebulization 0.25 mg inhalation BID 10/22/24 rivaroxaban 20 mg tablet (Xarelto) 5 mg PO DAILY Blood Thinner 10/22/24 azithromycin 250 mg tablet 250 mg PO ONCE 10/27/24 evolocumab 140 mg/mL subcutaneous pen injector (Repatha SureClick) 140 mg subcut QMONTH 10/27/24 amlodipine 2.5 mg tablet 2.5 mg PO QDAY #90 tabs 11/17/24 escitalopram oxalate 10 mg tablet 15 mg PO DAILY 11/18/24 Hospital Course Operations None Procedures 2-D Echocardiogram Summary of Care Provided Minutes Spent on Discharge: 45 Hospital Course: Patient is a 69-year-old male with past medical history as outlined was admitted to the ED on 11/18/2024 with complaint of diplopia. Patient had angiogram with vascular surgery on 11/17/2024 and said he had 2 doses of fentanyl after which she started having diplopia. He was subsequently discharged home but his symptoms did not improve so he went to see his eye doctor in the office as he had recently had lens implant for cataracts and thought that may be due to it. He saw his eye doctor who said his symptoms were not likely due to the lens implant and so he was told to come to the ED for stroke to be ruled out. CT of the brain showed no acute intracranial pathology but CT of the head and neck showed high-grade stenosis of the origin of the left internal carotid and 60% stenosis of the origin of the right carotid artery. Patient was post to be on Xarelto which she has stopped taking on account of him having the angiogram. He stopped taking the Xarelto a few days prior to him having the angiogram. He was admitted to be managed for diplopia to rule out a stroke. MRI of the brain did not show any evidence of a stroke. Neurology was consulted. Neurology reviewed him and was concerned about possible myasthenia gravis and so recommended that he be transferred to [facility] for evaluation by inpatient ophthalmology. He did have 2D echo which showed EF of 55% with no regional wall motion abnormalities noted. He was transferred to [facility] on 11/19/2024. Patient was seen and examined with his nurse by his bedside on the day of discharge and also prior to transfer. He was still having the double vision though he said he had improved slightly. He had no other focal complaints review of systems otherwise negative. Labs and vitals reviewed. His daughter was by his bedside and also reassured and given the reason for the transfer and she expressed understanding. She did bring in medication that she said patient was post be taking. 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 She was told that they would have to take it over to [facility] for her to be administered as patient was being transferred at the time of this discussion. They expressed understanding. Physical Exam Const alert, oriented x3 and no apparent distress General Appearance: cooperative, comfortable, well kempt and well developed Orientation / Consciousness: awake HEENT normocephalic, head/scalp atraumatic, moist oral mucous membranes and oropharynx normal Eyes PERRL and EOMs intact bilaterally Eyes Narrative: Patient still having double vision prior to transfer. Double vision loss with both eyes. Neck supple Lymph Lymphatic: no lymphedema noted Resp normal respiratory effort, normal air movement, no retractions, no use of accessory muscles and clear to auscultation bilaterally Cardio regular rate, regular rhythm, S1 normal heart sound, S2 normal heart sound and no murmurs GI normal to inspection, nondistended, normoactive bowel sounds, soft to palpation, non-tender and non-distended Extremity normal to inspection, full ROM, normal capillary refill, no clubbing, cyanosis or edema and no calf tenderness General Extremity: no tenderness to palpation of joints or extremities Skin no rashes or lesions noted General Skin Exam: no breakdown Neuro oriented x3, moves all extremities, no focal motor deficits and no sensory deficits noted Neuro Narrative: Double vision of both eyes. Sensorium / Orientation: awake and alert Coordination / Balance: [id number] test normal Speech: speech normal Motor Exam: strength 5/5 throughout Psych thought process normal, cooperative and affect normal Appearance: appropriate Weight / BMI Weight Weight: 170 lb 13.732 oz Body Mass Index (BMI) 25.2 ABG / Lab / Microbiology Data 11/18/24 11:45 11/18/24 11:45 Laboratory: Laboratory Results - last 24 hr 11/19/24 06:52: Triglycerides 74, Cholesterol 76, LDL Cholesterol, Calc 15, VLDL Cholesterol 15, HDL Cholesterol 46, Cholesterol/HDL Ratio 1.65 Radiography Diagnostic Testing: Radiology Impression Echocardiogram 11/18/24 13:54 Interpretation Summary The estimated ejection fraction is 55 %. Mild mitral annular calcification. Normal LV systolic function The study was technically difficult. Ordering Physician: Quentin Chapman Referring Physician: Leighton Orozco Chi Performed By: Rosemarie Martin RDCS, RVT D/C Instructions DC O2, CPAP, BIPAP Needs Home O2 Discharge instructions: No Meaningful Use Info Meaningful Use Meaningful Use Diagnoses (Choose all that apply): None applicable Discharge Plan Admission Admit Date/Time: 11/18/24 13:48 Primary Reason for Your Visit: diplopia Attending Provider: Nini Duke Primary Care Provider: Leighton Orozco Chi Consulting Providers: Tripp Rodriguez; Malinda Escobar; Tiesha Phillip; Monisha Kuo; Marley Diaz; Abiodun Crabtree; Brigette Paul; Marek Beyer; Ulysses Torres; Albino Quiroz; Eloise Fraser; Ritesh Rojo; Elvie tOero; Ena Saunders; Alton Montilla; Deonte Valencia; Latrell Do; Chadd Rowland; Maribel Denis; Melquiades Elizabeth; Quentin Chapman Discharge Orders/Prescriptions Prescriptions: No Action ascorbic acid (vitamin C) 500 mg tablet 1 g PO DAILY Xarelto 20 mg tablet 5 mg PO DAILY Rx Instructions: must administer with evening meal hydroxyurea 500 mg capsule 1,500 mg PO MOTUTHFR Rx Instructions: rest on Friday Probiotic 3 billion cell capsule 3,000 mmu cells PO QDAY Rx Instructions: administer with a meal metoprolol succinate 100 mg tablet extended release 24 hr 100 mg PO DAILY Qty: 90 3RF Rx Instructions: Hold for heart less than 50 or systolic blood pressure less than 100 mmHg. hydrocodone bitartrate 10 mg capsule, oral only, ER 12hr 10 mg PO Q12H azithromycin 250 mg tablet 250 mg PO ONCE Rx Instructions: 3 x a week Repatha SureClick 140 mg/mL pen injector 140 mg subcut QMONTH budesonide 0.5 mg/2 mL suspension for nebulization 0.25 mg inhalation BID omeprazole 40 mg capsule,delayed release(DR/EC) 40 mg PO DAILY Patient Comments: TAKE 1 CAPSULE BY MOUTH ONCE DAILY zolpidem 5 mg tablet 10 mg PO QHS PRN PRN (Reason: sleep) calcium carbonate [Calcium 600] 600 mg calcium (1,500 mg) tablet 600 mg PO DAILY cholecalciferol (vitamin D3) [Vitamin D3] 50 mcg (2,000 unit) capsule 400 unit PO DAILY escitalopram oxalate 10 mg Tablet 15 mg PO DAILY multivitamin with minerals Capsule 1 cap PO DAILY acetaminophen 500 mg Tablet 1,000 mg PO Q8 Qty: 0 0RF amlodipine 2.5 mg tablet 2.5 mg PO QDAY Qty: 90 3RF Referrals / Follow Up: Leighton Orozco Chi, MD [Primary Care Provider] - Disposition Disposition (needs filled in before D/C Order can be placed): Acute Care Hospital Charges/Coding Visit Charges Inpatient E&M: 52535 Disch Hosp >30min
--- NOTE | 2024-11-19 20:01 | NURSING ---
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 Pt educated on its function yet, continues to refuse.
[2024-11-19] MEDS: Budesonide Respules 0.5 MG/2 ML AMPUL.NEB. 0.25 MG INHALATION (20:02)
[2024-11-19] MEDS: 0.9% Saline Lock 10 ML Syringe IV (21:07)
== END 2024-11-19 21:33 | disposition short-term general hospital (02) ==
LOC: ED 15:05 → PCU 16:09
PROVIDERS: Physician Assistant; Emergency Provider Emergency Medicine; PCP Family Medicine Geriatric Medicine; Visit Provider Student in an Organized Health Care Education/Training Program
DX: H53.2 Diplopia (principal); J44.9 Chronic obstructive pulmonary disease, unspecified; I48.0 Paroxysmal atrial fibrillation; N18.30 Chronic kidney disease, stage 3 unspecified; M48.02 Spinal stenosis, cervical region; B96.5 Pseudomonas (aeruginosa) (mallei) (pseudomallei) as the cause of diseases classified elsewhere; Z79.51 Long term (current) use of inhaled steroids; Z82.49 Family history of ischemic heart disease and other diseases of the circulatory system; Z86.718 Personal history of other venous thrombosis and embolism; Z86.711 Personal history of pulmonary embolism; Z79.899 Other long term (current) drug therapy; H54.7 Unspecified visual loss; Z87.891 Personal history of nicotine dependence; G47.00 Insomnia, unspecified; K21.9 Gastro-esophageal reflux disease without esophagitis; I25.10 Atherosclerotic heart disease of native coronary artery without angina pectoris; E78.5 Hyperlipidemia, unspecified; I12.9 Hypertensive chronic kidney disease with stage 1 through stage 4 chronic kidney disease, or unspecified chronic kidney disease; I65.23 Occlusion and stenosis of bilateral carotid arteries; K22.70 Barrett's esophagus without dysplasia; Z99.89 Dependence on other enabling machines and devices; I73.9 Peripheral vascular disease, unspecified; G47.33 Obstructive sleep apnea (adult) (pediatric); Z95.5 Presence of coronary angioplasty implant and graft
CPT/HCPCS: 36415; 70450; 70496; 70498; 70551; 80048; 80061; 85025; 85610; 85730; 93005; 93306; 94640; 97162; 97166; 97802; 99221; 99284; Q9967; A4216; G0378

== ENCOUNTER → 2024-12-11 | Outpatient (CLI) | payer MEDICARE, OTHER, SELFPAY ==
--- NOTE | 2024-12-11 09:04 | MRI_ITS ---
PROCEDURE: SPINE LUMBAR (ROUTINE) 12/11/2024 REASON FOR EXAM: RADICULOPATHY TECHNIQUE: Procedure Code: MRISPL Modality: MR Procedure: SPINE LUMBAR (ROUTINE) FINDINGS: Normal lumbar alignment and vertebral body height. Normal conus. No retroperitoneal mass. T12-L1 and L1-L2 demonstrate no spinal stenosis. Mild canal narrowing at L2-3 from concentric annular bulge. Facet arthrosis at L3-4 without spinal stenosis. Mild canal narrowing from concentric annular bulging at L4-5. At this level, there is asymmetric right L4 impingement far laterally on the right on sagittal images 12 and 13 and axial image 13 L5-S1 is unremarkable MRI/Spine Lumbar (Routine) IMPRESSION: Mild canal narrowing. Far right protrusion at L4-5 impinging the far right L4 nerve [facility]
--- OUTSIDE RECORDS SUMMARY | 2024-12-11 09:08 | XMS RPT_ITS | CCD ---
Author Organization [facility] CliniSyga Care Team Providers Care Income Tax Adjuster Name Role Phone Efe Suarez Unavailable Unavailable Sandi Dutton Unavailable Unavailable Sandi Dutton Unavailable Unavailable Ulises Ramos DO Primary Care Provider [phone] Wilton CARVER, Louie Beltre Unavailable Unavailabl Ulises Morgan DO Primary Care Provider [phone] Louie Silva RN Unavailable UnavailUlises Garcia DO Primary Care Provider [phone] Louie Silva RN Unavailable UnavailDr. Aleja Weaver Primary Care JAKOB Conway Attending Unavailable Segundo CARVER, Yuko Unavailable Unavailable Louie CARVER, Wilton Beltre Unavailable UnavailUlises Garcia DO Primary Care Provider [phone] Louie CARVER, Wilton Beltre Unavailable Unavailmarbin Raymond [...] JOHNSON MD, DR PEREYRA Attending Unavailab le ULISES RAMOS DO Primary Care Unavailable Ulises Ramos DO Primary Care Provider [phone] SERENE DO~[id number], SERENE JUSTIN Atten carlos manuel Unavailable SAV COLINDRES, АНДРЕЙ Haro Consulting Unavailable MON DO, ARY Hernandez Procedure Practitioner Vita vailable MON DO~[id number], ELIESER Hernandez Admittin g Unavailable ULISES RAMOS Primary Care Unavailable SAV COLINDRES, АНДРЕЙ Haro Consulting Unavailable ZAHIDA COLINDRES, АНДРЕЙ Haro Consulting Unavailmarbin TEAGUE MD, АНДРЕЙ Haro Consulting Unavailabl e [place] COLINDRES, KAIDEN Beltre Consulting Unavailable [place] COLINDRES, KAIDEN Beltre Consulting Unavailable JAYDEN COLINDRES, ERNIE Consulting Unavailable JAYDEN COLINDRES, ERNIE Consulting Unavailable ULISES RAMOS Primary Care Unavailable ROBERT COLINDRES~[id number], ROBERT cannon Unavailable ROBERT COLINDRES~[id number], ROBERT horowitz Unavailable ULISES RAMOS Primary Care Unavailable [place] COLINDRES~[id number], [place] lockhart Unavailable [place] COLINDRES~[id number], [place] Beltre Attendnisreen g Unavailable ULISES RAMOS Primary Care Unavailable LE DO~[id number], RAUDEL ARIZMENDI Admitting Jeramy moore LE DO~[id number], RAUDEL ARIZMENDI Attending Sandi Enamorado MD Primary Care Provider Richard SIERRA, Ulises Aguayo Primary Care Provider [phone] Louie CARVER, Wilton Beltre Unavailable Unavailmarbin Orozco, Leighton Ibarra Primary Care Provider [phone] HORTENCIA GALLARDO Attending Unavailable HORTENCIA GALLARDO Referring Unavailable ULISES RAMOS Primary Care Unavailable NAKUL GALLEGOS Attending Unavail able ULISES RAMOS Referring Unavailable ULISES RAMOS Primary Care Unavailable ULISES RAMOS Referring Unavailable ULISES RAMOS Primary Care Unavailable ULISES RAMOS Referring Unavailable ULISES RAMOS Primary Care Unavailable ULISES RAMOS Referring Unavailable ULISES RAMOS Primary Care Unavailable PANTERA STENIER Attending Unavailable ULISES RAMOS Referring Unavailable ULISES [...] Unavailable ERNESTO COLINDRES, DR NAVA Consulting Unavailable CHANDRAKANT COLINDRES, ANS Attending Unavailable ENIO COLINDRES, REJI Admitting Unavailable HEATHER SIERRA MATT Consulting Unavailable JAVON DO, HOLDEN S Consulting Unavailable АНДРЕЙ MOON MD Consulting Unavailable ERNESTO COLINDRES, DR NAVA Primary Care Unavailable COSME COLINDRES, JEYSON Consulting Unavailable KRISTIN MAC MD Attending Unavailable THERESA KENNEDY DO Admitting Unavailable CURTIS FISCHER MD, CARLOS Consulting Unavailable Ernesto COLINDRES, Peewee Primary Care Provider Samara HORNER [facility], Mansamanda S Unavailable Arvin CARVER, Jocelyne Unavailable Unavailable CASTRO SCHAFFER Attending Unavailable SHELLI HERNANDEZ Admitting Unavailable NGHIA MOREIRA Referring Unavailable CONSULT, OPHTHALMOLOGY Consulting Unavailab le Ernesto, Leighton Chi Primary Care Unavailable Ernesto, Leighton Chi Admitting Unavailable Carmelo Daly Attending Unavailable Ernesto, Leighton Chi Referring Unavailable Gregg Mcdonnell Consulting Unavailable Ratna Macias Consulting Unavailable Ernesto, Leighton Chi Consulting Unavailable Ernesto, Leighton Chi Primary Care Unavailable Yvette Shine Attending Unavailable Ernesto, Leighton Chi Referring Unavailable Ernesto, Leighton Chi Primary Care Unavailable Monisha Edmonds Attending Unavailable Erensto, Leighton Chi Referring Unavailable Ernesto, Leighton Chi Primary Care Unavailable Jocelyne Rodriguez Attending Unavailable River, Quentin Admitting Unavailable Merlin, Quentin Attending Unavailable Ernesto, Leighton Chi Primary Care Unavailable River, Quentin Referring Unavailable Ernesto, Leighton Chi Primary Care Unavailable Ernesto, Leighton Chi Attending Unavailable Gregg Mcdonnell Consulting Unavailable Ernesto, Leighton Chi Admitting Unavailable Ernesto, Leighton Chi Primary Care Unavailable Ernesto, Leighton Chi Attending Unavailable Ratna Macias Consulting Unavailable Ernesto, Leighton Chi Primary Care Unavailable Zaira Denis Attending Unavailable Ernesto, Leighton Chi Primary Care Unavailable Edmonds, Monisha Attending Unavailable Ernesto, Leighton Chi Referring Unavailable [...] Attending Unavailable Ernesto, Leighton Chi Referring Unavailable Ratna Macias Attending Unavailable Ratna Macias Attending Unavailable Ernesto, Leighton Chi Primary Care Unavailable Ernesto, Leighton Chi Referring Unavailable Ernesto, Leighton Chi Primary Care Unavailable River, Quentin Attending Unavailable Ernesto, Leighton Chi Referring Unavailable Ernesto, Leighton Chi Primary Care Unavailable Tripp Rodriguez Consulting Unavailable Jopperi, Quentin Admitting Unavailable CarolamNghia Katie Attending Unavailable Adeli, Amir Consulting Unavailable Hinduja, Tiesha Consulting Unavailable Ayaan, Monisha Consulting Unavailable Joe, Marley Consulting Unavailable Bro, Abiodun Consulting Unavailable Beverly, Brigette Consulting Unavailable Marek Beyer Consulting Unavailable Pantera Torres Consulting Unavailable Albino Quiroz Consulting Unavailable Eloise Fraser Consulting Unavailable Nakul Rojo Consulting Unavailable Elvie Otero Consulting Unavailable Ena Saunders Consulting Unavailable Alton Montilla Consulting UnavailDeonte Bess Consulting Unavailable Latrell Do Consulting Unavailable Chadd Rowland Consulting Unavailable Maribel Denis Consulting Unavailable Hannawi, Yousef Consulting Unavailable Jopperi, Quentin Consulting Unavailable Ernesto, Leighton Chi Primary Care Unavailable Idris Guzman Attending Unavailable Ernesto, Leighton Chi Referring Unavailable Edmonds, Monisha Consulting Unavailable River, Quentin Referring Unavailable River, Quentin Attending Unavailable Ernesto, Leighton Chi Primary Care Unavailable Basali, Ayman Attending Unavailable Basali, Ayman Referring Unavailable Ernesto, Leighton Chi Primary Care Unavailable Ernesto, Leighton Chi Primary Care Unavailable Ernesto, Leighton Chi Attending Unavailable Ernesto, Leighton Chi Referring Unavailable Ernesto, Leighton Chi Primary Care Unavailable Jabour, Vincent Attending Unavailable Jabour, Vincent Referring Unavailable Jabour, Vincent Referring Unavailable Ernesto, Leighton Chi Primary Care Unavailable Jabour, Vincent Attending Unavailable Ernesto, Leighton Chi Primary Care Unavailable Ernesto, Leighton Chi Attending Unavailable Ernesto, Leighton Chi Primary Care Unavailable Adeel, Zaira Consulting Unavailable Ernesto, Leighton Chi Attending Unavailable Ernesto, Leighton Chi Referring Unavailable Ernesto, Leighton Chi Primary Care Unavailable Meeta Jerardo Attending Unavailable Ernesto, Leighton Chi Primary Care Unavailable Quentin Montalvo Attending Unavailable Ernesto, Leighton Chi Primary Care Unavailable Ernesto, Leighton Chi Attending Unavailable Ernesto, Leighton Chi Referring Unavailable Ernesto, Leighton Chi Primary Care Unavailable Ernesto, Leighton Chi Attending Unavailable Ernesto, Leighton Chi Referring Unavailable Ernesto, Leighton Chi Primary Care Unavailable Ernesto, Leighton Chi Attending Unavailable Ernesto, Leighton Chi Attending Unavailable Ernesto, Leighton Chi Referring Unavailable Ernesto, Leighton Chi Primary Care Unavailable Meeta, Jerardo Referring Unavailable Meeta Jerardo Attending Unavailable Ernesto, Leighton Chi Primary Care Unavailable Ernesto, Leighton Chi Primary Care Unavailable IsckarusLavinia Attending Unavailable Isckarus, Mansour Referring Unavailable Ernesto, Leighton Chi Primary Care Unavailable Basali, Ayman Referring Unavailable Basali, Ayman Attending Unavailable Ernesto, Leighton Chi Primary Care Unavailable Demiter, Oniel Referring Unavailable Demiter, Oniel Attending Unavailable Edmonds, Monisha Attending Unavailable Edmonds, Monisha Referring Unavailable Ernesto, Leighton Chi Primary Care Unavailable Demiter, Oniel Referring Unavailable Demiter, Oniel Attending Unavailable Ernesto, Leighton Chi Primary Care Unavailable Ernesto, Leighton Chi Primary Care Unavailable Adeel, Zaira Consulting Unavailable Isckarus, Mansour Attending Unavailable Isckarus, Mansour Referring Unavailable SNYDER, DEYSI Consulting Unavailable SNYDER, DEYSI Attending Unavailable SNYDER, DEYSI Referring Unavailable Ernesto, Leighton Chi Primary Care [...] Unavailable Ernesto, Leighton Chi Primary Care Unavailable Wartmann, Christopher Referring Unavailabl e Wartmann, Christopher Attending Unavailabl e Ernesto, Leighton Chi Primary Care Unavailable Jocelyne Rodriguez Attending Unavailable Edmonds, Monisha Referring Unavailable Merlin, Quentin Attending Unavailable Ernesto, Leighton Chi Primary Care Unavailable Ernesto, Leighton Chi Primary Care Unavailable Marcia Simons Attending Unavailable Ernesto, Leighton Chi Primary Care Unavailable Edmonds, Monisha Consulting Unavailable River, Quentin Referring Unavailable River, Quentin Attending Unavailable Merlin, Quentin Consulting Unavailable River, Quentin Admitting Unavailable River, Quentin Consulting Unavailable Edmonds, Monisha Attending Unavailable Ernesto, Leighton Chi Primary Care Unavailable River, Quentin Referring Unavailable Ernesto, Leighton Chi Primary Care Unavailable Jopperi, Quentin Attending Unavailable Ernesto, Leighton Chi Primary Care Unavailable Jopperi, Quentin Admitting Unavailable Tripp Rodriguez Consulting Unavailable Koram, Nghia Katie Attending Unavailable Adeli, Amir Consulting Unavailable Hinduja, Tiesha Consulting Unavailable Ayaan, Monisha Consulting Unavailable Zha, Marley Consulting Unavailable Bro, Abiodun Consulting Unavailable Beverly, Brigette Consulting Unavailable Bittalauren Marek Consulting Unavailable Pantera Torres Consulting Unavailable Albino Quiroz Consulting Unavailable Eloise Fraser Consulting Unavailable Nakul Rojo Consulting Unavailable Elvie Otero Consulting Unavailable Ena Saunders Consulting Unavailable Alton Montilla Consulting UnavailDeonte Bess Consulting Unavailable Latrell Do Consulting Unavailable Chadd Rowland Consulting Unavailable Maribel Denis Consulting Unavailable Melquiades Elizabeth Consulting Unavailable Ari Quentin Consulting Unavailable Koram, Nghia Katie Consulting Unavailable Ernesto, Leighton Chi Primary Care Unavailable [facility], Eric Attending Unavailable Sathya, Gregg Consulting Unavailable Ernesto, Leighton Chi Primary Care Unavailable [facility], Eric Referring Unavailable Sathya, Gregg Consulting Unavailable Alexander Manjarrez Attending Unavailable [facility], Eric Admitting Unavailable Oumar, Eric Consulting Unavailable Oumar, Eric Attending Unavailable Deo Cui Attending Unavailable Merlin, Quentin Admitting Unavailable Merlin, Quentin Consulting Unavailable River, Quentin Attending Unavailable Ernesto, Leighton Chi Primary Care Unavailable River, Quentin Referring Unavailable Ernesto, Leighton Chi Primary Care Unavailable SkJocelyne hanna Attending Unavailable Ernesto, Leighton Chi Primary Care Unavailable Idris Guzman Attending Unavailable Ernesto, Leighton Chi Primary Care Unavailable Ernesto, Leighton Chi Referring Unavailable IsckarLavinia garsia Attending Unavailable Ernesto, Leighton Chi Primary Care Unavailable Ernesto, Leighton Chi Referring Unavailable IsckarLavinia garsia Attending Unavailable SkJocelyne hanna Attending Unavailable Ernesto, Leighton Chi Primary Care Unavailable River Quentin Attending Unavailable Ernesto, Leighton Chi Primary Care Unavailable Ernesto, Leighton Chi Referring Unavailable Ernesto, Leighton Chi Primary Care Unavailable Lavinia Pascual Attending Unavailable Ernesto, Leighton Chi Referring Unavailable Ernesto, Leighton Chi Primary Care Unavailable IsckarusLavinia Attending Unavailable Ernesto, Leighton Chi Referring Unavailable Ernesto, Leighton Chi Primary Care Unavailable Annmarie Moralez Attending Unavailable Ernesto, Leighton Chi Referring Unavailable SkJocelyne hanna Attending Unavailable Ernesto, Leighton Chi Primary Care Unavailable Ernesto, Leighton Chi Primary Care Unavailable Jocelyne Rodriguez Attending Unavailable Monisha Edmonds Attending Unavailable Ernesto, Leighton Chi Referring Unavailable Ernesto, Leighton Chi Primary Care Unavailable IsckarLavinia garsia Attending Unavailable Ernesto, Leighton Chi Referring Unavailable Ernesto, Leighton Chi Primary Care Unavailable Oniel Jurado Attending Unavailable Ernesto, Leighton Chi Primary Care Unavailable Ernesto, Leighton Chi Referring Unavailable SkJocelyne hanna Attending Unavailable Ernesto, Leighton Chi Primary Care Unavailable Ernesto, Leighton Chi Primary Care Unavailable Oumar, Eric Admitting Unavailable Oumar, Eric Attending Unavailable Sathya, Gregg Consulting Unavailable Ernesto, Leighton Chi Primary Care Unavailable David Lainez Attending Unavailabl e David Lainez Referring Unavailabl e Ernesto, Leighton Chi Admitting Unavailable Ernesto, Leighton Chi Primary Care Unavailable Ernesto, Leighton Chi Attending Unavailable Leighton Orozco Chi Referring Unavailable Allergies Allergy Classification Reported Allergen(s) Allergy Type Date of Onset Reaction(s) Facility (20 sources) Penicillin; Translations: [penicillin] Drug Allergy 7 Hives [facility] (20 sources) Doxycycline; Translations: [doxycycline] Drug Allergy 2 Intolerance, Other [facility] Work Phone: (20 sources) Penicillin V; Translations: [PENICILLIN V POTASSIUM] Drug Allergy 2 Other: See Comments [facility] (3 sources) levoFLOXacin; Translations: [LEVOFLOXACIN] Drug Allergy 3 Unknown [facility] Work Phone: (2 sources) Penicillins; Translations: [PENICILLINS] Drug Allergy 3 Unknown [facility] Work Phone: (1 source) Doxycycline Drug Allergy [facility] (1 source) Penicillins Drug Allergy 6 Hives, Other, Unknown [facility] (1 source) Doxycycline Drug Allergy 5 [facility] (1 source) fentaNYL Drug Allergy 5 [facility] (1 source) Penicillins Drug allergy (disorder) 5 [facility] Repository Medications Current Medications Medication Drug Class(es) Dates Sig (Normalized) Sig (Original) acetaminophen 325 mg / HYDROcodone bitartrate 5 mg oral tablet (1 source) Opioid Agonist Start: 05-05-2023 End: 05-10-2023 take 1 tablet by mouth every six hours [place] 325- 5 mg oral tablet Dose = [...] day(s), # 28 tab(s), 0 Refill(s), Pharmacy: [facility]/pharmacy #[id number], Intertrochanteric fracture of right hip, 177.8, cm, [...] by bear every 6 hours as needed. [id number] 200 actuat albuterol 0.09 mg/actuat metered dose [...] by mouth once daily. 0 08/01/2022 Active ascorbic acid 2000 mg oral tablet (3 sources) Vitamin C Start: 05-02-2024 take 1 dose by mouth once daily Vitamin C Dose : 2,000 mg =, Oral, qDay, 0 Refill(s) Start Date: 05/02/24 Status: Ordered Repeat number: 1 atropine sulfate 0.025 mg / diphenoxylate hydrochloride 2.5 mg oral tablet (18 sources) Anticholinergic, Cholinergic Muscarinic Antagonist, Antidiarrheal Start: 12-20-2021 End: 03-27-2022 take 1 tablet by mouth every six hours as needed for diarrhea and diarrhea diphenoxylate-atr opine (LOMOTIL) 2.5-0.025 mg per tablet Indications: Diarrhea, unspecified type Take 1 tablet by mouth four times daily as needed for up to 5 days. 20 tablet 0 12/20/2021 03/27/2022 Discontinued (Course of therapy completed) Comment on above: Take 1 tablet by bear four times daily as needed for up to 5 days. baclofen 10 mg oral tablet (20 sources) gamma-Aminobutyric Acid-ergic Agonist Start: 12-03-2021 End: 03-27-2022 take 1 tablet by mouth every eight hours as needed baclofen (LIORESAL) 10 mg tablet Take 1 tablet by mouth three times daily as needed. 90 tablet 2 12/03/2021 03/27/2022 Discontinued (Course of therapy completed) Comment on above: Take 1 tablet by bear three times daily as needed. Breztri Aerosphere 160 mcg-9 mcg-4.8 mcg/inh inhalation aerosol (2 sources) Start: 05-03-2024 take 1 dose by mouth twice daily Breztri Aerosphere 160 mcg-9 mcg-4.8 mcg/inh inhalation aerosol Dose = 2 puff(s), Inhalation, BID, rinse mouth and throat after use, # 10.7 gram(s), 0 Refill(s) Start Date: 05/03/24 Status: Ordered Quantity: 10.7 Unit: g Repeat number: 1 calcitriol 0.07626 mg oral capsule (20 sources) Vitamin D3 [...] Start: 01-18-2021 take 1 capsule by mo uth once daily calcitriol (ROCALTROL) 0.25 mcg capsule Take 0.25 mcg by mouth once daily. 0 01/18/2021 Suspended Comment on above: Take 0.25 mcg by bear once daily. calcium carbonate 1500 mg oral [...] 09/13/2020 Suspended take 1 tablet by bear in the morning calcium carbonate (Os-Kentrell) 600 MG tablet Take 1 tablet by mouth in the morning and 1 tablet in the evening. Take before meals. Active calcium carbonat e (Tums) 500 MG chewable tablet Chew 1 tablet daily. Active take 2 tablets by mo [facility] once daily calcium carbonate (CALCIUM 600 ORAL) [...] Start: 02-12-2023 ergocalciferol (Vitamin D-2) 1.25 MG (86372 UT) capsule Start: 09-14-2020 ergocalciferol 50,000 unit capsule (VITAMIN D2, DRISDOL) once every month. 09/14/2020 Active End: 02-20-2023 ergocalciferol (Vitamin D-2) 50 MCG (2000 UT) capsule capsule Comment on above: once every month. 1 ml evolocumab 140 mg/ml auto-injector (20 sources) PCSK9 Inhibitor Start: 05-23-19 inject 1 dose by subcutaneous injection every [...] 2 weeks. 2 Pen 11 04/03/2021 Active Repatha SureClic k 140 MG/ML Solution Auto-injector injection Inject 1 mL under the skin every 14 days. Active inject 140 mg by sub cutaneous [...] take 1 puff(s) by inhalation once daily fluticasone-umeclid in-vilanter (TRELEGY ELLIPTA) 100-62.5-25 mcg inhalation powder Inhale 1 Puff as instructed once daily. 30 Each 1 12/11/2022 Active Comment on above: Inhale 1 Puff as ins tructed once daily. krill oil 1000 mg oral [...] 1 tablet by bear once daily for 10 days. magnesium oxide [...] Take 1 tablet by bear once daily Take 0.5 tablets by mouth [...] capsule (20 sources) Proton Pump Inhibitor Start: omeprazole 40 mg oral delayed release capsule [...] 07/26/2021 08/01/2021 Discontinued take 1 capsule by [facility] once daily omeprazole (PriLOSEC) [address] capsule Take 20 mg by mouth daily. Active Comment on above: Take 1 capsule by mo [facility] twice daily Take 1 capsule by [facility] once daily. Take 1 capsule by [facility] once daily ondansetron 8 mg oral tablet (1 source) Serotonin-3 Receptor Antagonist Start: 05-23-2024 ondansetron 8 mg oral tablet Dose : 8 mg = 1 tab(s), Oral, Once, PRN Nausea, mild, # 10 tab(s), 0 Refill(s) Start Date: 05/23/24 Status: Ordered Quantity: 10.0 Unit: tab(s) Repeat number: 1 polyethylene glycol 3350 533483 mg / potassium chloride 2970 mg / sodium bicarbonate 6740 mg / sodium chloride 5860 mg / sodium sulfate 38384 mg powder for oral solution (18 sources) [...] 1 tablet by bear twice daily for 5 days. Take 1 tablet by bear twice daily. Repatha Prefilled Syringe (1 source) Start: Repatha Prefilled Syringe qmonth, 0 Refill(s) Start Date: 05/23/24 Status: Ordered Repeat number: 1 sodium bicarbonate 650 mg oral tablet (20 sources) Start: End: take 1 tablet by mouth twice daily sodium bicarbonate 650 mg tablet Take 1 tablet by mouth twice daily. 60 tablet 1 12/11/2022 Active Comment on above: Take 1 tablet by bear twice daily. sulfamethoxazole 800 mg / trimethoprim 160 mg oral tablet (8 sources) Dihydrofolate Reductase Inhibitor Antibacterial, Sulfonamide Antimicrobial Start: End: take 1 tablet by mouth twice daily sulfamethoxazole-t rimethoprim (BACTRIM DS) 800-160 mg per tablet Take 1 tablet by mouth twice daily for 10 days. 20 tablet 0 09/12/2021 09/22/2021 Active Comment on above: Take 1 tablet by bear twice daily for 10 days. Trelegy Ellipta 200 mcg-62.5 mcg-25 mcg/inh inhalation powder (1 source) Start: take 1 dose by inhalation once daily as needed for wheezing Trelegy Ellipta 200 mcg-62.5 mcg-25 mcg/inh inhalation powder Dose = 1 puff(s), Inhalation, qDay, PRN Shortness of breath or wheezing, at the same time every day, 0 Refill(s) Start Date: 05/23/24 Status: Ordered Repeat number: 1 Trelegy Ellipta 200-62.5-25 mcg blister with device (1 source) Start: 023 Trelegy Ellipta 200-62.5-25 mcg blister with device valACYclovir 1000 mg oral tablet (20 sources) Herpesvirus Nucleoside Analog DNA Polymerase Inhibitor, Herpes Simplex Virus Nucleoside Analog DNA Polymerase Inhibitor, Herpes Zoster Virus Nucleoside Analog DNA Polymerase Inhibitor Start: 023 take 1 tablet by mouth twice daily [...] Sig (Normalized) Sig (Original) acetaminophen 325 mg oral tablet (1 source) Start: 11-20-2024 End: 11-22-2024 take 1 tablet by mouth every six hours as needed 650 mg, Oral, EVERY 6 HOURS NEEDED, Starting on 11/20/24 at 0026, Until 11/22/24 at 1733, Mild Pain, Oral temp > 100.4 F, Headaches, Alternate with ibuprofen if ordered, Maximum dose of acetaminophen is 4000 mg from all sources in 24 hours or 2000 mg from all sources in patients with cirrhosis in 24 hours. albuterol 0.833 mg/ml / ipratropium bromide 0.167 mg/ml inhalation solution (2 sources) Anticholinergic, beta2-Adrenergic Agonist Start: 11-20-2024 End: 11-22-2024 take 3 mL by inhalation every six hours as needed take 3 mL by inhalat ion every six hours as needed Ipratropium-albuterol 0.5-2.5 (3) MG/3ML nebulizer solution Take 3 mL by nebulization every 6 hours as needed for Shortness of Breath, Cough or Breathing Treatment. Active amLODIPine 2.5 mg oral tablet (20 sources) Dihydropyridine Calcium Channel Freda Start: 11-20-2024 End: 11-22-2024 take 2.5 mg by mouth once daily 2.5 mg, Oral, DAILY, First dose on 11/20/24 at 0900, Until Discontinued Start: 05-05-2023 amLODIPine 5 m g oral tablet 0 Refill(s) Start Date: 05/05/23 [...] daily. 90 tablet 3 09/05/2020 09/12/2021 Discontinued take 0.5 tablet by m outh once daily amLODIPine 5 MG tablet Take 0.5 tablets by mouth daily. Active Comment on above: Take 1 tablet by bear th once daily. apixaban 2.5 mg oral tablet (20 sources) [...] tablet by bear th twice daily. aspirin 81 mg chewable tablet (20 sources) Platelet Aggregation Inhibitor, Nonsteroidal Anti-inflammatory Drug Start: 11-20-2024 End: 11-22-2024 take 81 mg by mouth once daily 81 mg, Oral, DAILY, First dose on 11/20/24 at 0900, Until Discontinued Start: 07-27-2020 End: 12-03-2021 take 1 tablet by mouth twice daily aspirin, enteric coated (ASPIRIN, ENTERIC COATED) 325 mg EC tablet Take 1 tablet by mouth twice daily for 21 days. 42 tablet 0 07/27/2020 12/03/2021 Discontinued take 1 tablet by bear th once daily Aspirin [address] tablet Take 1 tablet by mouth daily. Active take 81 mg by mouth once daily B LINA ASPIRIN ORAL Take 81 mg by mouth once daily. Active Comment on above: Take 81 mg [...] List Cleanup) atorvastatin 80 mg oral tablet (2 sources) HMG-CoA Reductase Inhibitor Start: 4 End: 3 atorvastatin (Lipitor) 80 mg tablet Take by mouth once daily. 0 04/21/2013 02/20/2023 Discontinued (Med List Cleanup) take 1 tablet by mouth once phuong y Atorvastatin 40 MG tablet Take 1 tablet by mouth daily. Active azithromycin 250 mg oral tablet (4 sources) Macrolide Antimicrobial Start: 10-17-2023 azithromycin (Zithromax Z-Mario) 250 MG tablet Indications: Other non-recurrent acute nonsuppurative otitis media of right ear Take 500 mg on day 1. Take 250 mg on days 2 through 5. Take as directed 6 tablet 10/17/2023 Active Start: 05-05-2023 End: 11-22-2024 budesonide 0.25 mg/ml inhalation suspension (2 sources) Corticosteroid Start: 11-20-2024 End: 11-22-2024 take 0.5 mg by inhalation twice daily 0.5 mg, Inhalation, 2 TIMES DAILY, First dose on 11/20/24 at 0900, Until Discontinued take 2 mL by inhalation twice da belkis budesonide 0.5 MG/2ML nebulizer suspension Inhale 2 mL 2 times daily. Active cholestyramine resin 4000 mg powder for oral suspension (20 sources) Bile Acid Sequestrant Start: 12-10-2021 End: 03-22-2022 take 1 dose by mouth three times daily at mealtime cholestyramine (QUESTRAN) 4 gram packet Take 1 Packet by mouth three times daily with meals. 90 Packet 11 12/10/2021 03/22/2022 Discontinued (Course of therapy completed) Comment on above: Take 1 Packet by bear three times daily with meals. colesevelam hydrochloride 625 mg oral tablet (3 sources) Bile Acid Sequestrant Start: 12-03-2021 take 3 tablets by mouth twice daily before mealtime colesevelam (WELCHOL) 625 mg tablet Indications: Chronic diarrhea Take 3 tablets by mouth twice daily before meals. 360 tablet 3 12/03/2021 Active Comment on above: Take 3 tablets by mo ut twice daily before meals. docusate sodium 100 mg oral capsule (16 sources) Start: 01-21-2022 End: 03-22-2022 take 1 capsule by mouth twice daily docusate sodium (COLACE) 100 mg capsule TAKE 1 CAPSULE BY MOUTH 2 TIMES PER DAY 0 01/21/2022 03/22/2022 Discontinued (Course of therapy completed) Comment on above: TAKE 1 CAPSULE BY MO UTH 2 TIMES PER DAY doxepin 3 mg oral tablet (12 sources) Tricyclic Antidepressant Start: 12-13-2022 End: 02-20-2023 take 1 tablet by mouth once daily at bedtime doxepin 3 mg tablet Take 1 tablet (3 mg) by mouth once daily at bedtime. 0 12/13/2022 02/20/2023 Discontinued (Med List Cleanup) Comment on above: Take 1 tablet by bear daily at bedtime. escitalopram 10 mg oral tablet (8 sources) Serotonin Reuptake Inhibitor Start: 11-20-2024 End: 11-22-2024 take 15 mg by mouth once daily 15 mg, Oral, DAILY, First dose on 11/20/24 at 0900, Until Discontinued Start: 05-05-2023 escitalopram 5 mg oral tablet Dose : 5 mg = 1 tab(s), Oral, qDay, 0 Refill(s) Start Date: 05/05/23 Status: Ordered Repeat number: 1 Start: 01-10-2023 take 1 tablet by bear th once daily escitalopram (Lexapro) 5 mg tablet Take 1 tablet (5 mg) by mouth once daily. 0 01/10/2023 Active take 1.5 tablets by mouth once daily Escitalopram 10 MG tablet Take 1.5 tablets by mouth daily. 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 0 07/14/2021 12/03/2021 Discontinued Start: 07-14-2021 Fluorouracil 5 % cream APPLY CREAM TOPICALLY TWICE DAILY TO FOREHEAD DIRECTED FOR 14 DAYS 0 07/14/2021 Active Comment on above: APPLY CREAM TOPICALL Y TWICE DAILY TO FOREHEAD DIRECTED FOR 14 DAYS Patient states she s topped this 2 days ago, but is going to ask his Manufacturing Project Manager to see if he should continue. 30 actuat fluticasone furoate 0.2 mg/actuat / vilanterol 0.025 mg/actuat dry powder inhaler (20 sources) Corticosteroid, beta2-Adrenergic Agonist Start: 09-11-19 End: 02-21-20 take 1 puff(s) by inhalation [...] Comment on above: Inhale as instructed . guaiFENesin 20 mg/ml oral solution (2 sources) Start: End: take 400 mg by mouth every six hours as needed 400 mg, Oral, EVERY 6 HOURS NEEDED, Starting on 11/20/24 at 0026, Until 11/22/24 at 1733, Cough, Congestion Start: 05-03-2024 End: 05-13-2024 guaiFENesin 600 mg oral tabl et, extended release Dose : 600 mg = 1 tab(s), Oral, BID, X 10 day(s), # 20 tab(s), 0 Refill(s), 05/13/24 9:29:00 AM EST Start Date: 05/03/24 Stop Date: 05/13/24 Status: Ordered Quantity: 20.0 Unit: tab(s) Repeat number: 1 hydroCHLOROthiazide 12.5 mg / lisinopril 20 mg oral tablet (1 source) Thiazide Diuretic, Angiotensin Converting Enzyme Inhibitor Start: 07-18-2012 End: 02-20-2023 take 1 tablet by mouth once daily lisinopriL-hydrochlorothiazide 20-12.5 mg tablet Take 1 tablet by mouth once daily. 0 07/18/2012 02/20/2023 Discontinued (Med List Cleanup) hydroxyurea 500 mg oral capsule (20 sources) Antimetabolite Start: 11-20-2024 End: 11-22-2024 take 1 capsule by mouth once daily 1,500 mg, Oral, CUSTOM FREQUENCY (Once per day on Friday), First dose on 11/20/24 at 0900, Until Discontinued, Do not split, break, crush or open capsules or this medication. Contact pharmacy if altered dose or route needed. Start: 05-02-2024 hydroxyurea 50 0 mg oral capsule Dose : 1,500 mg = 3 cap(s), Oral, Fri//Fri//Fri/Fri, EXCEPT FOR SUNDAYS Start Date: 05/02/24 Status: [...] 2 capsules by m outh once daily. melatonin 3 mg oral tablet (1 source) Start: 11-20-2024 End: 11-22-2024 take 6 mg by mouth once daily at bedtime as needed 6 mg, Oral, DAILY AT BEDTIME NEEDED, Starting on 11/20/24 at 0026, Until 11/22/24 at 1733, Insomnia 24 hr metoprolol succinate 100 mg extended release oral tablet (20 sources) beta-Adrenergic Freda Start: 05-25-2024 End: 05-26-2024 take 1 tablet by mouth in the [...] 30 mg oral tablet (20 sources) Start: 2021 End: 2021 take 1 tablet by mouth once daily at bedtime mirtazapine (REMERON) 30 mg tablet Take 1 tablet by mouth daily at bedtime. 30 tablet 5 09/12/2021 12/03/2021 Discontinued Comment on above: Take 1 tablet by bear th daily at bedtime. Ondansetron 4mg/2ml (ZOFRAN) injection 4 mg (1 source) Start: 2024 End: 2024 take 4 mg intravenously every six hours as needed Ondansetron 4mg/2ml (ZOFRAN) injection 4 mg oxybutynin chloride 5 mg oral tablet (20 sources) Cholinergic Muscarinic Antagonist Start: 2021 End: 2021 take 1 tablet by mouth three times daily oxybutynin (DITROPAN) 5 mg tablet Take 1 tablet by mouth three times daily. 90 tablet 3 07/18/2021 12/03/2021 Discontinued Comment on above: Take 1 tablet by ebar th three times daily. oxyCODONE hydrochloride 5 mg oral tablet (1 source) Opioid Agonist Start: 2024 End: 2024 take 1 tablet by mouth every six hours as needed 5 mg, Oral, EVERY 6 HOURS NEEDED, Starting on 11/20/24 at 1117, Until Fri11/22/24 at 1733, Severe Pain pantoprazole 40 mg delayed release oral tablet (1 source) Proton Pump Inhibitor Start: 2024 End: 2024 take 40 mg by mouth once daily 40 mg, Oral, DAILY, First dose on 11/20/24 at 0900, Until Discontinued, Swallow whole; do not crush or chew., Indications: Continuation of Home Therapy polyethylene glycol 3350 40426 mg powder for oral solution (1 source) Osmotic Laxative Start: 2024 End: 2024 17 g, Oral, DAILY NEEDED, Starting on 11/20/24 at 0026, Until Fri11/22/24 at 1733, Constipation 1st Line rivaroxaban 10 mg oral tablet (6 sources) Factor Xa Inhibitor Start: 2024 End: 2024 take 1 tablet by mouth once daily 10 mg, Oral, DAILY, First dose on 11/20/24 at 0900, Until Discontinued, Due to the rapid onset of action of rivaroxaban, no overlap is needed with other anticoagulants (e.g. enoxaparin, heparin). Administer doses of 15mg or greater with food. For patients who cannot swallow whole tablets, the tablets may be crushed and mixed with applesauce immediately prior to use. If administered via feeding tube, crush tablets and mix with 50 mL water. Tube must empty into the stomach for this route., Indications: Atrial Fibrillation roflumilast 0.5 mg oral tablet (20 sources) Phosphodiesterase 4 Inhibitor Start: 2022 End: 2023 take 1 tablet by mouth once roflumilast (DALIRESP) 500 mcg tab Take 1 tablet by mouth every afternoon. 0 11/23/2022 11/12/2023 Discontinued (Course of therapy completed) Comment on above: Take 1 tablet by bear th every afternoon. sennosides, chcf 8.6 mg oral tablet (1 source) Start: 2024 End: 2024 take 1 tablet by mouth every twelve hours as needed 8.6 mg, Oral, EVERY 12 HOURS NEEDED, Starting on 11/20/24 at 0026, Until 11/22/24 at 1733, Constipation 2nd Line 250 ml sodium chloride 9 mg/ml injection (1 source) Start: 2024 End: 2024 Intravenous, at 20 mL/hr, NEEDED, Starting on 11/20/24 at 0026, Until 11/22/24 at 1733, Carrier Fluid - See Admin. Inst, 250mL 0.9NS to be used as carrier fluid for intermittent small volume or piggyback medication administration as needed. Infusion rate of the carrier fluid should be set at 20 mL/hr unless the rate as the intermittent medication is less than 20 mL/hr. For intermittent medications with a rate less than 20 mL/hr set the carrier fluid at that rate of the intermittent or piggy back medication. tobramycin 60 mg/ml inhalation solution (3 sources) Aminoglycoside Antibacterial Start: 2024 End: 2024 300 mg, Nebulization, DAILY, First dose (after last modification) on 11/22/24 at 0900, Until Discontinued Start: 11-21-2024 End: 11-21-2024 300 mg, Nebulization, EVERY 12 HOURS, First dose on Fri11/21/24 at 1000, Until Discontinued take 5 mL by inhalat ion every twelve hours Tobramycin 300 MG/5ML Nebu Soln inhalation solution Take 5 mL by nebulization every 12 hours. Active traZODone hydrochloride 50 mg oral tablet (3 sources) Serotonin Reuptake Inhibitor Start: 05-28-2021 take 1 tablet by mouth once daily at bedtime traZODone (DESYREL) 50 mg tablet Indications: Insomnia, unspecified type Take 1 tablet by mouth daily at bedtime. 30 tablet 0 05/28/2021 Active Comment on above: Take 1 tablet by bear th daily at bedtime. zolpidem tartrate 5 mg oral tablet (20 sources) gamma-Aminobutyr ic Acid-ergic Agonist Start: 11-20-2024 End: 11-22-2024 take 10 mg by mouth once daily at bedtime 10 mg, Oral, DAILY AT BEDTIME, First dose on 11/20/24 at 0045, Until Discontinued Start: 01-24-2023 zolpidem 10 mg oral tablet Dose : [...] Translations: [Anxiety disorder, unspecified] Onset: 5 Chronic Blindness and vision defects (8 sources) Diplopia; Translations: [Diplopia] Onset: 5 11-22-2024 Episodic Cancer of kidney and renal pelvis [...] Onset: 9 11-10-2018 Chronic Chronic kidney disease (2 sources) Chronic kidney disease; Translations: [CHRONIC KIDNEY [...] Coronary arteriosclerosis; Translations: [Atherosclerotic heart disease of [place] coronary artery without angina pectoris] Onset: 3 [...] Chronic Fracture of neck of femur (hip) (5 sources) Closed intertrochanteric fracture of right femur; [...] 2 05-16-2021 Chronic Other aftercare (3 sources) assisted (current) use of aspirin; Translations: [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 (current) use of aspirin] Onset: 8 Episodic Other aftercare (1 source) assisted (current) use of inhaled steroids; Translations: [LONGTERM USE OF INHALED STEROIDS] Onset: 4 Episodic Other aftercare (1 source) assisted (current) use of systemic steroids; Translations: [LONGTERM USE OF SYSTEMIC STEROIDS] Onset: 4 Episodic Other aftercare (1 source) Other tank terminal gauger (current) drug therapy; Translations: [OTH ANESTHESIA ATTENDING CURRENT DRUG THERAPY] Onset: 4 Episodic Other and ill-defined heart disease (2 sources) Heart disease, unspecified; Translations: [Heart disease, unspecified] Onset: 5 Chronic Other and unspecified benign neoplasm (2 sources) [...] Onset: 3 02-17-2023 Episodic Other circulatory disease (2 sources) Disorder [...] Cough; Translations: [Acute cough] 10-17-2023 Episodic Other lower respiratory disease (1 source) Other forms of dyspnea; Translations: [Other forms of dyspnea] Onset: 5 Episodic Other lower respiratory disease (1 source) Other nonspecific abnormal finding of lung field; Translations: [Other nonspecific abnormal finding of lung field] Onset: 5 Episodic Other male genital disorders (2 sources) Adult hydrocele; Translations: [Hydrocele, unspecified] Episodic Other male genital disorders (2 sources) Atypical small acinar proliferation of prostate; Translations: [Atypical small acinar proliferation of prostate] Episodic Other non-epithelial cancer of skin (1 source) Personal history of other malignant neoplasm of skin; Translations: [Personal history of other malignant neoplasm of skin] Onset: 5 Episodic Other non-traumatic joint disorders (14 sources) [...] Hypomagnesemia; Translations: [Hypomagnesemia] Onset: 4 Chronic Other screening for suspected conditions (not mental disorders or infectious disease) (19 sources) Raised prostate specific antigen; Translations: [Elevated prostate specific antigen [PSA]] Onset: 3 Resolved: 3 Episodic Other skin disorders (2 sources) Disorder of left upper extremity; Translations: [Localized swelling, mass and lump, left upper limb] Episodic Other upper respiratory disease (1 source) Allergic rhinitis; Translations: [Allergic rhinitis, unspecified] Onset: 3 02-20-2023 Chronic Other upper respiratory infections (2 sources) Upper respiratory infection; Translations: [Acute upper respiratory infection, unspecified] Episodic Peripheral and visceral atherosclerosis (3 sources) Peripheral vascular disease, unspecified; Translations: [Atherosclerosis of [place] arteries of extremities with intermittent claudication, right leg] Onset: 5 Chronic Phlebitis; thrombophlebitis and thromboembolism (20 sources) Chronic deep venous thrombosis of thigh; Translations: [Chronic embolism and thrombosis of unspecified deep veins of left proximal lower extremity] Onset: 3 12-02-2022 Chronic Phlebitis; thrombophlebitis and thromboembolism (20 sources) Deep venous thrombosis of lower extremity; Translations: [Acute embolism and thrombosis of left femoral vein] Onset: 1 03-14-2021 Episodic Pulmonary heart disease (1 source) Chronic [...] history of nicotine dependence] Onset: 8 Episodic Septicemia (except in labor) (4 sources) Sepsis, unspecified organism; Translations: [Sepsis due to Streptococcus pneumoniae] Onset: 3 Episodic Spondylosis; intervertebral disc disorders; other back problems (1 source) Other cervical disc degeneration, unspecified cervical region; Translations: [Other cervical disc degeneration, unspecified cervical region] Onset: 5 Chronic Spondylosis; intervertebral disc disorders; other back problems (10 sources) Neck pain; Translations: [Cervicalgia] Onset: 4 Episodic Substance-related disorders (1 source) Opioid dependence, uncomplicated; Translations: [Opioid dependence, uncomplicated] Onset: 5 Chronic Unclassified (1 source) ACIDOSIS UNSPECIFIED; Translations: [...] not specified as recurrent] Onset: 5 Episodic Abdominal pain (2 sources) Left lower quadrant [...] [Nocturia] Onset: 8 Resolved: 9 03-19-2018 Episodic Influenza (1 source) Influenza due to unidentified influenza virus with other respiratory manifestations; Translations: [Influenza due to unidentified influenza virus with other respiratory manifestations] Onset: 5 Episodic Mood disorders (20 sources) Mood disorder [...] of right arm] Onset: 5 Episodic Other bone disease and musculoskeletal deformities (1 source) Segmental and somatic dysfunction of cervical region; Translations: [Segmental and somatic dysfunction of cervical region] Onset: 5 Episodic Other connective tissue disease [...] [Other acute postprocedural pain] Onset: 4 Episodic Otitis media and related conditions (2 sources) Acute secretory otitis media; Translations: [Other acute nonsuppurative otitis media, right ear] Onset: 4 10-17-2023 Episodic Pneumonia (except that caused by tuberculosis or sexually transmitted disease) (2 sources) Other viral pneumonia; Translations: [Pneumonia due to Pseudomonas] Onset: 3 Episodic Residual codes; unclassified (20 sources) History [...] [ACUTE RESPIRATORY FAIL W/HYPOXIA] Onset: 3 Episodic Unclassified (3 sources) Acquired absence of kidney; Translations: [Acquired absence of kidney] Onset: 8 Episodic Viral infection (20 sources) Disease caused by 2019-nCoV; Translations: [COVID-19] Onset: 2 05-16-2021 Episodic Results Test Name Value Interpretation Reference Range Facility CBC W/Diff, Automatedon 11-13 PATH REV Reviewed Normal [facility] Comment on above: Result Comment: SEE REPORT IN PATIENT'S EMR AMENDED REPORT 12/01/24 1322 PATH REV previously reported as: August Performed By: #### L 500.2500, L100.0100 ####[facility] [id number] [place], [address] CBC,PLATELETSon 11-22-2024 Erythrocyte distribution width (RBC) [Ratio] 14.0 % 10.9 - 14.3 % [facility] Hematocrit (Bld) [Volume fraction] 29.8 % Low 39.6 - 48.8 % [facility] Hemoglobin (Bld) [Mass/Vol] 9.6 g/dL Low 13.4 - 16.8 g/dL [facility] Interpretation and review of laboratory results Abnormal [facility] MCH (RBC) [Entitic mass] 44.4 pg High 26.1 - 33.[address] [facility] MCHC (RBC) [Mass/Vol] 32.2 g/dL 31.9 - 36.5 g/dL [facility] MCV (RBC) [Entitic vol] 138.0 fL High 79.0 - 94.[address] [facility] Platelet mean volume (Bld) [Entitic vol] 9.5 fL 8.7 - 12.[address] [facility] Platelets (Bld) [#/Vol] 276 10*3/uL 146 - 337 K/uL [facility] RBC (Bld) [#/Vol] 2.16 10*6/uL Low [facility] WBC (Bld) [#/Vol] 25.75 10*3/uL High 3.73 - 10.10 K/uL [facility] Hematocrit (Bld) [Volume fraction] 29.8 % Low 39.6-48.8 [facility] Comment on above: Performed By: #### H EMOGC #### [place] [facility] (DEFAULT) [address] [place] [address] Hemoglobin (Bld) [Mass/Vol] 9.6 g/dL Low 13.4-16.8 [facility] Comment on above: Performed By: #### H EMOGC #### [place] [facility] (DEFAULT) [address] [place] [address] MCV (RBC) [Entitic vol] 138.0 fL High 79.0-94.5 [facility] Comment on above: Performed By: #### H EMOGC #### [place] [facility] (DEFAULT) [address] [address] Mean Cell Hgb 44.4 pg High 26.1-33.3 [facility] Comment on above: Performed By: #### H EMOGC #### [facility] (DEFAULT) [address] [address] Mean Cell Hgb Conc 32.2 g/dL Normal 31.9-36.5 [facility] Comment on above: Performed By: #### H EMOGC #### [facility] (DEFAULT) [address] [address] Platelet mean volume (Bld) [Entitic vol] 9.5 fL Normal 8.7-12.3 [facility] Comment on above: Performed By: #### H EMOGC #### [facility] (DEFAULT) [address] [address] Platelets (Bld) [#/Vol] 276 10*3/uL Normal 146-337 [facility] Comment on above: Performed By: #### H EMOGC #### [facility] (DEFAULT) [address] [address] RBC (Bld) [#/Vol] 2.16 10*6/uL Low 4.38-5.83 [facility] Comment on above: Performed By: #### H EMOGC #### [facility] (DEFAULT) [address] [place] [address] RBC Distribution 14.0 % Normal 10.9-14.3 [facility] Comment on above: Performed By: #### H [facility] #### [facility] (DEFAULT) [address] [place] [address] WBC (Bld) [#/Vol] 25.75 10*3/uL High 3.73-10.10 [facility] Comment on above: Performed By: #### H [facility] #### [facility] (DEFAULT) [address] [place] [address] CHEM 7 (LYTES,BUN,CREA,GLUC) on 11-22-2024 Anion gap [Moles/Vol] 15 mmol/L 7 - 17 mmol/L [facility] Chloride [Moles/Vol] 107 mmol/L 98 - 10 8 mmol/L [facility] CO2 [Moles/Vol] 21 mmol/L 21 - 31 mmol/L [facility] Creatinine [Mass/Vol] 2.02 mg/dL High 0.70 - 1.30 mg/dL [facility] eGFR, CKD-EPI, Male 33 Low - PINF [facility] Comment on above: Reported eGFR is bas ed on the CKD-EPI 2020 equation using creatinine, age, and sex. Glucose [Mass/Vol] 97 mg/dL 70 - 179 mg/dL [facility] Interpretation and review of laboratory results Abnormal [facility] Osmolality Calc [Osmolality] [address] [facility] Potassium [Moles/Vol] 4.8 mmol/L 3.5 - 5.0 mmol/L [facility] Sodium [Moles/Vol] 138 mmol/L 135 - 145 mmol/L [facility] Urea nitrogen [Mass/Vol] 40 mg/dL High 7 - 25 mg/dL [facility] Urea nitrogen/Creatinine [Mass ratio] 20 mg/mg [facility] Anion gap [Moles/Vol] 15 mmol/L Normal 7-17 [facility] Comment on above: Performed By: #### C HM7 #### U [facility] (DEFAULT) [address] [place] [address] Chloride [Moles/Vol] 107 mmol/L Normal 98-108 [facility] Comment on above: Performed By: #### C HM7 #### [facility] (DEFAULT) [address] [place] [address] CO2 [Moles/Vol] 21 mmol/L Normal 21-31 [facility] Comment on above: Performed By: #### C HM7 #### [facility] (DEFAULT) [address] [place] [address] Creatinine [Mass/Vol] 2.02 mg/dL High 0.70-1.30 [facility] Comment on above: Performed By: #### C HM7 #### [facility] (DEFAULT) [address] [place] [address] GFR/1.73 sq M.predicted among non-blacks MDRD (S/P/Bld) [Vol rate/Area] 35 mL/min/{1.73_m2} Low >=60 [facility] Comment on above: Result Comment: Repo rted eGFR is based on the CKD-EPI 2020 equation using creatinine, age, and sex. Performed By: #### C HM7 #### [place] [facility] (DEFAULT) [address] [place] [address] Glucose [Mass/Vol] 97 mg/dL Normal Nonfastin -179 mg/dL; Fastin-99 [facility] Comment on above: Performed By: #### C HM7 #### [facility] (DEFAULT) [address] [place] [address] Osmolality [Osmolality] 300 mosm/kg Normal 278-305 [facility] Comment on above: Performed By: #### C HM7 #### [facility] (DEFAULT) [address] [place] [address] Potassium [Moles/Vol] 4.8 mmol/L Normal 3.5-5.0 [facility] Comment on above: Performed By: #### C HM7 #### [facility] (DEFAULT) [address] [place] [address] Sodium [Moles/Vol] 138 mmol/L Normal 135-145 [facility] Comment on above: Performed By: #### C HM7 #### [facility] (DEFAULT) [address] [address] Urea nitrogen [Mass/Vol] 40 mg/dL High 7-25 [facility] Comment on above: Performed By: #### C HM7 #### [facility] (DEFAULT) [address] [address] Urea nitrogen/Creatinine [Mass ratio] 20 mg/mg Normal [facility] Comment on above: Performed By: #### C HM7 #### [facility] (DEFAULT) [address] [address] PATHOLOGIST DIFFERENTIALon 0 11-22-2024 Annotation comment [Interpretation] Narrative See Note [facility] Comment on above: Lymphocytosis of sma ll mature lymphocytes with clumped chromatin.Smudge cells are present.The findings can be seen in a lymphoproliferative disorder.Correlation with flow cytometric analysis is recommended. Band form neutrophils/100 WBC (Bld) 0.0 % [facility] Basophils (Bld) [#/Vol] 0.00 10*3/uL 0.00 - 0.09 K/uL [facility] Basophils/100 WBC (Bld) 0.0 % [facility] Eosinophils (Bld) [#/Vol] 0.00 10*3/uL [facility] Eosinophils/100 WBC (Bld) 0.0 % [facility] Interpretation and review of laboratory results Abnormal [facility] Lymphocytes (Bld) [#/Vol] 26.55 10*3/uL High 0.83 - 3.57 K/uL [facility] Lymphocytes/100 WBC (Bld) 88.0 % [facility] Monocytes (Bld) [#/Vol] 0.30 10*3/uL 0.24 - 0.93 K/uL [facility] Monocytes/100 WBC (Bld) 1.0 % [facility] Neutrophils (Bld) [#/Vol] 3.32 10*3/uL 1.57 - 6.19 K/uL [facility] Pathologist interpretation (Unsp spec) [Interp] Daniel Tobar MD [facility] RBC morphology finding Nom (Bld) RBC INDICES CONFIRMED WITH MANUAL SLIDE REVIEW [facility] Segmented neutrophils/100 WBC (Bld) 11.0 % [facility] CBC,PLATELETSon 11-21-2024 Erythrocyte distribution width (RBC) [Ratio] 14.2 % 10.9 - 14.3 % [facility] Hematocrit (Bld) [Volume fraction] 30.7 % Low 39.6 - 48.8 % [facility] Hemoglobin (Bld) [Mass/Vol] 10.1 g/dL Low 13.4 - 16.8 g/dL [facility] Interpretation and review of laboratory results Abnormal [facility] MCH (RBC) [Entitic mass] 45.7 pg High 26.1 - 33.[address] [facility] MCHC (RBC) [Mass/Vol] 32.9 g/dL 31.9 - 36.5 g/dL [facility] MCV (RBC) [Entitic vol] 138.9 fL High 79.0 - 94.[address] [facility] Platelet mean volume (Bld) [Entitic vol] 9.2 fL 8.7 - 12.[address] [facility] Platelets (Bld) [#/Vol] 268 10*3/uL 146 - 337 K/uL [facility] RBC (Bld) [#/Vol] 2.21 10*6/uL Low [facility] WBC (Bld) [#/Vol] 26.46 10*3/uL High 3.73 - 10.10 K/uL [facility] Hematocrit (Bld) [Volume fraction] 30.7 % Low 39.6-48.8 [facility] Comment on above: Performed By: #### H EMOGC #### U [facility] (DEFAULT) [address] [address] Hemoglobin (Bld) [Mass/Vol] 10.1 g/dL Low 13.4-16.8 [facility] Comment on above: Performed By: #### H EMOGC #### [facility] (DEFAULT) [address] [address] MCV (RBC) [Entitic vol] 138.9 fL High 79.0-94.5 [facility] Comment on above: Performed By: #### H EMOGC #### [place] [facility] (DEFAULT) [address] [address] Mean Cell Hgb 45.7 pg High 26.1-33.3 [facility] Comment on above: Performed By: #### H EMOGC #### [place] [facility] (DEFAULT) [address] [address] Mean Cell Hgb Conc 32.9 g/dL Normal 31.9-36.5 [facility] Comment on above: Performed By: #### H EMOGC #### U [facility] (DEFAULT) [address] [address] Platelet mean volume (Bld) [Entitic vol] 9.2 fL Normal 8.7-12.3 [facility] Comment on above: Performed By: #### H EMOGC #### [facility] (DEFAULT) [address] [address] Platelets (Bld) [#/Vol] 268 10*3/uL Normal 146-337 [facility] Comment on above: Performed By: #### H EMOGC #### [facility] (DEFAULT) [address] [address] RBC (Bld) [#/Vol] 2.21 10*6/uL Low 4.38-5.83 [facility] Comment on above: Performed By: #### H [facility] #### [facility] (DEFAULT) [address] [place] [address] RBC Distribution 14.2 % Normal 10.9-14.3 [facility] Comment on above: Performed By: #### H [facility] #### [facility] (DEFAULT) [address] [place] [address] WBC (Bld) [#/Vol] 26.46 10*3/uL High 3.73-10.10 [facility] Comment on above: Performed By: #### H [facility] #### [facility] (DEFAULT) [address] [place] [address] CHEM 7 (LYTES,BUN,CREA,GLUC) on 11-21-2024 Anion gap [Moles/Vol] 15 mmol/L 7 - 17 mmol/L [facility] Chloride [Moles/Vol] 108 mmol/L 98 - 10 8 mmol/L [facility] CO2 [Moles/Vol] 22 mmol/L 21 - 31 mmol/L [facility] Creatinine [Mass/Vol] 1.92 mg/dL High 0.70 - 1.30 mg/dL [facility] eGFR, CKD-EPI, Male 37 Low - PINF [facility] Comment on above: Reported eGFR is bas ed on the CKD-EPI 2020 equation using creatinine, age, and sex. Glucose [Mass/Vol] 88 mg/dL 70 - 179 mg/dL [facility] Interpretation and review of laboratory results Abnormal [facility] Osmolality Calc [Osmolality] [address] [facility] Potassium [Moles/Vol] 4.7 mmol/L 3.5 - 5.0 mmol/L [facility] Sodium [Moles/Vol] 140 mmol/L 135 - 145 mmol/L [facility] Urea nitrogen [Mass/Vol] 38 mg/dL High 7 - 25 mg/dL [facility] Urea nitrogen/Creatinine [Mass ratio] 20 mg/mg [facility] Anion gap [Moles/Vol] 15 mmol/L Normal 7-17 [facility] Comment on above: Performed By: #### P TPTT #### U [facility] (DEFAULT) [address] [address] Chloride [Moles/Vol] 108 mmol/L Normal 98-108 [facility] Comment on above: Performed By: #### P TPTT #### [facility] (DEFAULT) [address] [address] CO2 [Moles/Vol] 22 mmol/L Normal 21-31 [facility] Comment on above: Performed By: #### P TPTT #### U [facility] (DEFAULT) [address] [address] Creatinine [Mass/Vol] 1.92 mg/dL High 0.70-1.30 [facility] Comment on above: Performed By: #### P TPTT #### U [facility] (DEFAULT) [address] [address] GFR/1.73 sq M.predicted among non-blacks MDRD (S/P/Bld) [Vol rate/Area] 37 mL/min/{1.73_m2} Low >=60 [facility] Comment on above: Result Comment: Repo rted eGFR is based on the CKD-EPI 2020 equation using creatinine, age, and sex. Performed By: #### P TPTT #### U [facility] (DEFAULT) [address] [address] Glucose [Mass/Vol] 88 mg/dL Normal Nonfastin -179 mg/dL; Fastin-99 [facility] Comment on above: Performed By: #### P TPTT #### [facility] (DEFAULT) [address] [address] Osmolality [Osmolality] 302 mosm/kg Normal 278-305 [facility] Comment on above: Performed By: #### P TPTT #### U [facility] (DEFAULT) [address] [place] [address] Potassium [Moles/Vol] 4.7 mmol/L Normal 3.5-5.0 [facility] Comment on above: Performed By: #### P TPTT #### [facility] (DEFAULT) [address] [place] [address] Sodium [Moles/Vol] 140 mmol/L Normal 135-145 [facility] Comment on above: Performed By: #### P TPTT #### [facility] (DEFAULT) [address] [place] [address] Urea nitrogen [Mass/Vol] 38 mg/dL High 7-25 [facility] Comment on above: Performed By: #### P TPTT #### [facility] (DEFAULT) [address] [place] [address] Urea nitrogen/Creatinine [Mass ratio] 20 mg/mg Normal [facility] Comment on above: Performed By: #### P TPTT #### [facility] (DEFAULT) [address] [place] [address] SEDIMENTATION RATE, AUTOMATE Don 11-21-2024 ESR (Bld) [Velocity] 17 mm/h [facility] Interpretation and review of laboratory results Normal [facility] ESR Westergren 17 mm/hr Normal <20 [facility] Comment on above: Performed By: #### E SR #### [facility] (DEFAULT) [address] [place] [address] C REACTIVE PROTEINon 025 CRP High sensitivity method [Mass/Vol] 11.66 mg/L High NINF - 10.00 mg/L [facility] Interpretation and review of laboratory results Abnormal [facility] CRP [Mass/Vol] 11.66 mg/L High <10.00 [facility] Comment on above: Performed By: #### P TPTT #### [facility] (DEFAULT) [address] [place] [address] CBC AND ELECTRONIC DIFFOrder ed By: Castro Coronado on 11-20-2024 Erythrocyte distribution width (RBC) [Ratio] 14.2 % 10.9 - 14.3 % [facility] Hematocrit (Bld) [Volume fraction] 30.6 % Low 39.6 - 48.8 % [facility] Hemoglobin (Bld) [Mass/Vol] 9.9 g/dL Low 13.4 - 16.8 g/dL [facility] Interpretation and review of laboratory results Abnormal [facility] Manual differential performed Ql (Bld) SENT TO PATHOLOGIST [facility] Comment on above: This is an appended report. These results have been appended to a previously preliminary verified report. MCH (RBC) [Entitic mass] 45.2 pg High 26.1 - 33.[address] [facility] MCHC (RBC) [Mass/Vol] 32.4 g/dL 31.9 - 36.5 g/dL [facility] MCV (RBC) [Entitic vol] 139.7 fL High 79.0 - 94.[address] [facility] Platelet mean volume (Bld) [Entitic vol] 9.7 fL 8.7 - 12.[address] [facility] Platelets (Bld) [#/Vol] 279 10*3/uL 146 - 337 K/uL [facility] RBC (Bld) [#/Vol] 2.19 10*6/uL Low [facility] WBC (Bld) [#/Vol] 30.17 10*3/uL High 3.73 - 10.10 K/uL [facility] CBC AND ELECTRONIC DIFFon DIFF STATUS SENT TO PATHOLOGIST Normal [facility] Comment on above: Result Comment: This is an appended report. These results have been appended to a previously preliminary verified report. Performed By: #### L [id number] #### [facility] (DEFAULT) [address] [place] [address] Hematocrit (Bld) [Volume fraction] 30.6 % Low 39.6-48.8 [facility] Comment on above: Performed By: #### L AB980 #### U [facility] (DEFAULT) [address] [place] [address] Hemoglobin (Bld) [Mass/Vol] 9.9 g/dL Low 13.4-16.8 [facility] Comment on above: Performed By: #### L AB980 #### [facility] (DEFAULT) [address] [place] [address] MCV (RBC) [Entitic vol] 139.7 fL High 79.0-94.5 [facility] Comment on above: Performed By: #### L AB980 #### [facility] (DEFAULT) [address] [place] [address] Mean Cell Hgb 45.2 pg High 26.1-33.3 [facility] Comment on above: Performed By: #### L AB980 #### [facility] (DEFAULT) [address] [place] [address] Mean Cell Hgb Conc 32.4 g/dL Normal 31.9-36.5 [facility] Comment on above: Performed By: #### L AB980 #### [facility] (DEFAULT) [address] [place] [address] Platelet mean volume (Bld) [Entitic vol] 9.7 fL Normal 8.7-12.3 [facility] Comment on above: Performed By: #### L AB980 #### [facility] (DEFAULT) [address] [place] [address] Platelets (Bld) [#/Vol] 279 10*3/uL Normal 146-337 [facility] Comment on above: Performed By: #### L AB980 #### [facility] (DEFAULT) [address] [place] [address] RBC (Bld) [#/Vol] 2.19 10*6/uL Low 4.38-5.83 [facility] Comment on above: Performed By: #### L AB980 #### [facility] (DEFAULT) [address] [place] [address] RBC Distribution 14.2 % Normal 10.9-14.3 [facility] Comment on above: Performed By: #### L AB980 #### [facility] (DEFAULT) [address] [place] [address] WBC (Bld) [#/Vol] 30.17 10*3/uL High 3.73-10.10 [facility] Comment on above: Performed By: #### L AB980 #### U [facility] (DEFAULT) [address] [place] [address] CHEM 7 (LYTES,BUN,CREA,GLUC) on 11-20-2024 GFR/1.73 sq M.predicted among non-blacks MDRD (S/P/Bld) [Vol rate/Area] 33 mL/min/{1.73_m2} Low >=60 [facility] Comment on above: Result Comment: Repo rted eGFR is based on the CKD-EPI 2020 equation using creatinine, age, and sex. Performed By: #### H FP, CHM7, MGO, CRP #### [facility] (DEFAULT) [address] [place] [address] Osmolality [Osmolality] 299 mosm/kg Normal 278-305 [facility] Comment on above: Performed By: #### H FP, CHM7, MGO, CRP #### [facility] (DEFAULT) [address] [place] [address] Anion gap [Moles/Vol] 16 mmol/L Normal 7-[address] [facility] Comment on above: Performed By: #### H FP, CHM7, MGO, CRP #### [facility] (DEFAULT) [address] [place] [address] Chloride [Moles/Vol] 106 mmol/L Normal 98-[address] [facility] Comment on above: Performed By: #### H FP, CHM7, MGO, CRP #### [facility] (DEFAULT) [address] [place] [address] CO2 [Moles/Vol] 20 mmol/L Low 21-31 [facility] Comment on above: Performed By: #### H FP, CHM7, MGO, CRP #### [facility] (DEFAULT) [address] [place] [address] Creatinine [Mass/Vol] 2.09 mg/dL High 0.70-1.[address] [facility] Comment on above: Performed By: #### H FP, CHM7, MGO, CRP #### [facility] (DEFAULT) [address] [place] [address] Glucose [Mass/Vol] 104 mg/dL Normal Nonfastin -179 mg/dL; Fastin-[address] [facility] Comment on above: Performed By: #### H FP, CHM7, MGO, CRP #### [facility] (DEFAULT) [address] [place] [address] Potassium [Moles/Vol] 5.1 mmol/L High 3.5-5.[address] [facility] Comment on above: Performed By: #### H FP, CHM7, MGO, CRP #### [facility] (DEFAULT) [address] [place] [address] Sodium [Moles/Vol] 137 mmol/L Normal 135-145 [facility] Comment on above: Performed By: #### H FP, CHM7, MGO, CRP #### [facility] (DEFAULT) [address] [place] [address] Urea nitrogen [Mass/Vol] 40 mg/dL High 7-[address] [facility] Comment on above: Performed By: #### H FP, CHM7, MGO, CRP #### [facility] (DEFAULT) [address] [place] [address] Urea nitrogen/Creatinine [Mass ratio] 19 mg/mg Normal [facility] Comment on above: Performed By: #### H FP, CHM7, MGO, CRP #### [facility] (DEFAULT) [address] [place] [address] eGFR, CKD-EPI, Male 33 Low - PINF [facility] Comment on above: Reported eGFR is bas ed on the CKD-EPI 2020 equation using creatinine, age, and sex. Osmolality Calc [Osmolality] [address] [facility] HEPATIC FUNCTION PANELon Bilirubin.indirect [Mass/Vol] 0.1 mg/dL Normal <0.3 [facility] Comment on above: Performed By: #### H FP, CHM7, MGO, CRP #### [facility] (DEFAULT) [address] [place] [address] Albumin [Mass/Vol] 4.1 g/dL Normal 3.5-5.0 [facility] Comment on above: Performed By: #### H FP, CHM7, MGO, CRP #### [facility] (DEFAULT) [address] [place] [address] ALP [Catalytic activity/Vol] 65 U/L Normal 32-[address] [facility] Comment on above: Performed By: #### H FP, CHM7, MGO, CRP #### [facility] (DEFAULT) [address] [place] [address] ALT [Catalytic activity/Vol] 8 U/L Low 10-[address] [facility] Comment on above: Performed By: #### H FP, CHM7, MGO, CRP #### [facility] (DEFAULT) [address] [place] [address] AST [Catalytic activity/Vol] 16 U/L Normal 10-[address] [facility] Comment on above: Performed By: #### H FP, CHM7, MGO, CRP #### [facility] (DEFAULT) [address] [place] [address] Bilirubin [Mass/Vol] 0.4 mg/dL Normal <1.[address] [facility] Comment on above: Performed By: #### H FP, CHM7, MGO, CRP #### [facility] (DEFAULT) [address] [place] [address] Protein [Mass/Vol] 5.9 g/dL Low 6.4-8.3 [facility] Comment on above: Performed By: #### H FP, CHM7, MGO, CRP #### [facility] (DEFAULT) [address] [address] Bilirubin.direct [Mass/Vol] 0.1 mg/dL NINF - 0.3 mg/dL [facility] MAGNESIUMon 11-20-2024 Magnesium [Mass/Vol] 1.5 mg/dL Low 1.6-2.[address] [facility] Comment on above: Performed By: #### H FP, CHM7, MGO, CRP #### U [facility] (DEFAULT) [address] [address] MYASTHENIA GRAVIS PANELon ACH RECEPTOR BINDING AB 0.00 nmol/L Normal <=0.02 [facility] Comment on above: Result Comment: ADDITIONAL INFORMATION This test was developed and its performance characteristics determined by [facility] in a manner consistent with CLIA requirements. This test has not been cleared or approved by the U.S. Food and Drug Administration. Test Performed by: [place] [address] Senior Bioinformatics Scientist: Naif Salvador Ph.D.; CLIA# [id number] Performed By: #### Y MGPD #### U [facility] (DEFAULT) [address] [address] MG Interpretation SEE COMMENTS Normal [facility] Comment on above: Result Comment: No i nformative autoantibodies were detected. A negative result does not exclude a diagnosis of autoimmune myasthenia gravis. Performed By: #### Y MGPD #### [facility] (DEFAULT) [address] [address] No Panel InformationOrdered By: Castro Coronado on 11-20-[address] [facility] No Panel Informationon 11-20 Interpretation and review of laboratory results Abnormal [facility] PT,INR,PTTon 11-20-2024 aPTT Coag (Bld) [Time] 30.1 s Normal 24.0-34.3 [facility] Comment on above: Performed By: #### P TPTT #### [facility] (DEFAULT) [address] [place] [address] INR Coag (PPP) [Relative time] 1.3 {INR} High 0.9-1.1 [facility] Comment on above: Performed By: #### P TPTT #### [facility] (DEFAULT) [address] [place] [address] PT Coag (PPP) [Time] 16.0 s High 11.9-14.[address] [facility] Comment on above: Performed By: #### P TPTT #### [facility] (DEFAULT) [address] [place] [address] aPTT Coag (PPP) [Time] 30.[address] [facility] INR Coag (Bld) [Relative time] 1.3 {INR} High 0.9 - 1.[address] [facility] Interpretation and review of laboratory results Abnormal [facility] Lipid Profileon 11-19-2024 CHOL:HDL 1.65 Normal [facility] Comment on above: Order Comment: Comme nts: NPO at [place] prior to lipid panel Performed By: #### L 500.4100 ####[facility] [address] [place], [address] Cholesterol [Mass/Vol] 76 mg/dL Normal <=200 [facility] Comment on above: Order Comment: Comme nts: NPO at [place] prior to lipid panel Result Comment: Chol esterol level, Desirable <200 mg/dLBorderline high cholesterol 200-239 mg/dLHigh cholesterol >=240 mg/dLRecommendations of the NCEP Adult Treatment Panel for thefollowing risk-cutoff thresholds for the [place] Americanpopulation. Performed By: #### L 500.4100 ####[facility] [address] [place], [address] Cholesterol in HDL [Mass/Vol] 46 mg/dL Normal [facility] Comment on above: Order Comment: Comme nts: NPO at [place] prior to lipid panel Result Comment: Lorelei onal Cholesterol Education Program (NCEP) guidelines:<40 mg/dL: Low HDL-cholesterol (major risk factor for CHD)>= 60 mg/dL: High HDL-cholesterol (negative risk factor forCHD)HDL-cholesterol is affected by a number of factors, e.g.smoking, exercise, hormones, sex and age. Performed By: #### L 500.4100 ####[facility] [address] [place], [address] Cholesterol in LDL [Mass/Vol] 15 mg/dL Normal [facility] Comment on above: Order Comment: Comme nts: NPO at [place] prior to lipid panel Result Comment: Bord uucptc=994-245 mg/dL Higher Sulw=189 mg/dL or greaterFriedwald Equation for LDL-C Performed By: #### L 500.4100 ####[facility] [address] [place], [address] Cholesterol in VLDL [Mass/Vol] 15 mg/dL Normal 5-40 [facility] Comment on above: Order Comment: Comme nts: NPO at [place] prior to lipid panel Performed By: #### L 500.4100 ####[facility] [address] [place], [address] Triglyceride [Mass/Vol] 74 mg/dL Normal [facility] Comment on above: Order Comment: Comme nts: NPO at [place] prior to lipid panel Result Comment: The drugs N-Acetylcysteine and Metamizole may falselydepress this assay.Normal range: <150 mg/dLBorderline High: 150-199 mg/dLHigh: 200-499 mg/dLVery High: >500 mg/dL Performed By: #### L 500.4100 ####[facility] [address] [place], [address] MR/CON.PCM.NEon 11-19-2024 MR/CON.PCM.NE Normal [facility] 12 Lead EKGon 11-18-2024 12 Lead EKG Normal [facility] Basic Metabolic Profile (BMP )on 11-18-2024 BUN/CRE 16.3 RATIO Normal 10-20 [facility] Comment on above: Performed By: #### L 500.2500, L100.0100 ####[facility] [address] [place], [address] Calcium [Mass/Vol] 9.4 mg/dL Normal 7.6-11.0 [facility] Comment on above: Performed By: #### L 500.2500, L100.0100 ####[facility] [address] [place], [address] Chloride [Moles/Vol] 104 mmol/L Normal 98-108 [facility] Comment on above: Performed By: #### L 500.2500, L100.0100 ####[facility] [address] [place], [address] CO2 [Moles/Vol] 21.9 mmol/L Normal 21.0-32.0 [facility] Comment on above: Performed By: #### L 500.2500, L100.0100 ####[facility] [address] [place], [address] Creatinine [Mass/Vol] 1.99 mg/dL High 0.70-1.20 [facility] Comment on above: Performed By: #### L 500.2500, L100.0100 ####[facility] [address] [place], [address] ECRCL 38.00 ml/min Low 50-250 [facility] Comment on above: Performed By: #### L 500.2500, L100.0100 ####[facility] [address] [place], [address] GAP 13 Normal 5-15 [facility] Comment on above: Performed By: #### L 500.2500, L100.0100 ####[facility] [address] [place], [address] GFR/1.73 sq M.predicted among non-blacks MDRD (S/P/Bld) [Vol rate/Area] 35 mL/min/{1.73_m2} Low >60 [facility] Comment on above: Result Comment: mL/m in/1.73m2 CKD-EPI Creatinine Equation (2020) Performed By: #### L 500.2500, L100.0100 ####[facility] [address] [place], [address] Glucose [Mass/Vol] 120 mg/dL High 70-99 [facility] Comment on above: Performed By: #### L 500.2500, L100.0100 ####[facility] [address] [place], [address] Potassium [Moles/Vol] 4.9 mmol/L Normal 3.3-5.1 [facility] [facility] Comment on above: Performed By: #### L 500.2500, L100.0100 ####[facility] [address] [place], [address] Sodium [Moles/Vol] 138 mmol/L Normal 133-145 [facility] Comment on above: Performed By: #### L 500.2500, L100.0100 ####[facility] [address] [place], [address] Urea nitrogen [Mass/Vol] 32 mg/dL High 4-19 [facility] Comment on above: Performed By: #### L 500.2500, L100.0100 ####[facility] [address] [place], [address] Brain without Contraston Brain without Contrast Normal [facility] Brain/Head without Contrasto n 11-18-2024 Brain/Head without Contrast Normal [facility] CTA Head AND Neck W/ Contras ton 11-18-2024 CTA Head AND Neck W/ Contrast Normal [facility] Echo Completeon 11-18-2024 Echo Complete Normal [facility] Emergency Department Summary on 11-18-2024 Emergency Department Summary Normal [facility] H AND P Exam - Hospitaliston 11-18-2024 H&P Exam - Hospitalist Normal [facility] Partial Thromboplast Timeon 11-18-2024 aPTT Coag (Bld) [Time] 25.7 s Normal 24.1-36.2 [facility] Comment on above: Performed By: #### L 300.4310, L300.3900 ####[facility] [address] [place], [address] Prothrombin Time w/INRon INR Coag (PPP) [Relative time] 1.1 {INR} Normal [facility] Comment on above: Performed By: #### L 300.4310, L300.3900 ####[facility] [address] [place], [address] PT Coag (PPP) [Time] 14.0 s Normal 11.7-14.9 [facility] Comment on above: Performed By: #### L 300.4310, L300.3900 ####[facility] [address] [place], [address] Basic Metabolic Profile (BMP )on 11-17-2024 BUN/CRE 19.1 RATIO Normal 10-20 [facility] Comment on above: Performed By: #### L 500.2500, L100.0500 ####[facility] [address] [place], [address] Calcium [Mass/Vol] 9.4 mg/dL Normal 7.6-11.0 [facility] Comment on above: Performed By: #### L 500.2500, L100.0500 ####[facility] [address] [place], [address] Chloride [Moles/Vol] 107 mmol/L Normal 98-108 [facility] Comment on above: Performed By: #### L 500.2500, L100.0500 ####[facility] [address] [place], [address] CO2 [Moles/Vol] 19.9 mmol/L Low 21.0-32.0 [facility] Comment on above: Performed By: #### L 500.2500, L100.0500 ####[facility] [address] [place], [address] Creatinine [Mass/Vol] 1.87 mg/dL High 0.70-1.20 [facility] Comment on above: Performed By: #### L 500.2500, L100.0500 ####[facility] [address] [place], [address] ECRCL 36.23 ml/min Low 50-250 [facility] Comment on above: Performed By: #### L 500.2500, L100.0500 ####[facility] [address] [place], [address] GAP 13 Normal 5-15 [facility] Comment on above: Performed By: #### L 500.2500, L100.0500 ####[facility] [address] [place], [address] GFR/1.73 sq M.predicted among non-blacks MDRD (S/P/Bld) [Vol rate/Area] 38 mL/min/{1.73_m2} Low >60 [facility] Comment on above: Result Comment: mL/m in/1.73m2 CKD-EPI Creatinine Equation (2020) Performed By: #### L 500.2500, L100.0500 ####[facility] [address] [place], [address] Glucose [Mass/Vol] 105 mg/dL High 70-99 [facility] Comment on above: Performed By: #### L 500.2500, L100.0500 ####[facility] [address] [place], [address] Potassium [Moles/Vol] 4.9 mmol/L Normal 3.3-5.1 [facility] Comment on above: Performed By: #### L 500.2500, L100.0500 ####[facility] [address] [place], [address] Sodium [Moles/Vol] 140 mmol/L Normal 133-145 [facility] Comment on above: Performed By: #### L 500.2500, L100.0500 ####[facility] [address] [place], [address] Urea nitrogen [Mass/Vol] 36 mg/dL High 4-19 [facility] Comment on above: Performed By: #### L 500.2500, L100.0500 ####[facility] [address] [place], [address] CBC-Complete Blood Cnt No Di ffon 11-17-2024 WBC (Bld) [#/Vol] 32.9 10*3/uL Invalid Interpretation Code 4.4-11.0 [facility] Comment on above: Result Comment: CRIT ICAL VALUE CALLED TO Omega RENE11/17/24 0820 Uma Ortiz.RESULTS READ BACK BY SAME. Performed By: #### L 500.2500, L100.0500 ####[facility] [address] [place], [address] Erythrocyte distribution width (RBC) [Ratio] 14.5 % Normal 11.6-14.6 [facility] Comment on above: Performed By: #### L 500.2500, L100.0500 ####[facility] [address] [place], [address] Hematocrit (Bld) [Volume fraction] 31.0 % Low 40-54 [facility] Comment on above: Performed By: #### L 500.2500, L100.0500 ####[facility] [address] [place], [address] Hemoglobin (Bld) [Mass/Vol] 10.2 g/dL Low 13.0-16.5 [facility] Comment on above: Performed By: #### L 500.2500, L100.0500 ####[facility] [address] [place], [address] MCH (RBC) [Entitic mass] 46.4 pg High 27.0-32.0 [facility] Comment on above: Performed By: #### L 500.2500, L100.0500 ####[facility] [address] [place], [address] MCHC (RBC) [Mass/Vol] 32.9 g/dL Normal 32-36 [facility] Comment on above: Performed By: #### L 500.2500, L100.0500 ####[facility] [address] [place], [address] MCV (RBC) [Entitic vol] 140.9 fL High 80-94 [facility] Comment on above: Performed By: #### L 500.2500, L100.0500 ####[facility] [address] [place], [address] Platelet mean volume (Bld) [Entitic vol] 9.4 fL Normal 6.2-12.0 [facility] Comment on above: Performed By: #### L 500.2500, L100.0500 ####[facility] [address] [place], [address] Platelets (Bld) [#/Vol] 320 10*3/uL Normal 150-450 [facility] Comment on above: Performed By: #### L 500.2500, L100.0500 ####[facility] [address] [place], [address] RBC (Bld) [#/Vol] 2.20 10*6/uL Low 4.6-6.2 [facility] Comment on above: Performed By: #### L 500.2500, L100.0500 ####[facility] [address] [place], [address] RDW SD 73.6 fl High 35.1-43.9 [facility] Comment on above: Performed By: #### L 500.2500, L100.0500 ####[facility] [address] [place], [address] Operative Reporton Operative Report Normal [facility] L3410.9992on 11-10-2024 [facility] Misc. COMMENT Normal . [facility] Comment on above: Order Comment: [id number] RMT Result Comment: Test Ordered: [id number] S95-Ujryxt+OW9Vuounvfbfjpa Screen, Urine Negative ng/mL UI Reference Range: Aeljux=774Sbjwloywane test includes Amphetamine and Methamphetamine.Barbiturates Negative ng/mL UI Reference Range: Ssnjxl=297Zzdykhlwbahgxss Negative ng/mL UI Reference Range: Piqaly=720Pfjnrls (Metab.), Urine Negative ng/mL UI Reference Range: Hzygnj=543Tbculaz Note: ng/mL UI See Final Results Reference Range: Brxrpk=061Uypfjq test includes Codeine, Morphine, Hydromorphone, Hydrocodone.Opiates Positive [A ] UI Reference Range: Ootapc=734Doljmr test includes Codeine, Morphine, Hydromorphone, Hydrocodone.Codeine Negative UI Reference Range: Vilxky=250Jvdunwkt Negative UI Reference Range: Ljuamj=310Zbuehgctwqmot Positive [A ] UI Reference Range: .Hydromorphone Conf, MS, UR 670 ng/mL UI Reference Range: Dplikn=547Uquncmqwzmj Positive [A ] UI Reference Range: .Hydrocodone Conf, MS, UR 2208 ng/mL UI Reference Range: Yiheqp=9603-Ivezktiwmdaghf, Urine Negative ng/mL UI Reference Range: Cutoff=10Oxycodone/Oxymorphone, Urine Negative ng/mL UI Reference Range: Kbaelr=781Efwx includes Oxycodone and OxymorphonePCP, Urine Negative ng/mL UI Reference Range: Cutoff=25Methadone Screen, Urine Negative ng/mL UI Reference Range: Cpayra=883Sngqmojbkwme, Urine Negative ng/mL UI Reference Range: Wertoj=296Pmesgcrm, Urine Negative ng/mL UI Reference Range: Cutoff=2.0Test includes Fentanyl and NorfentanylThis test was developed and its performance characteristicsdetermined by [employer]. It has not been cleared orapproved by the Food and Drug Administration.Tramadol Negative ng/mL UI Reference Range: Djmnle=394Qurhdwyqacswk, Urine Negative ng/mL UI Reference Range: Cutoff=10Creatinine, Urine 252.6 mg/dL UI Reference Range: 20.0-300.0pH, Urine 5.2 UI Reference Range: 4.5-8.9Performed at: [facility] [id number] [place], [place] [id number] Director: Alejandro Cardozo PhD, Phone: [phone] at: [address] [id number] Director: Jorge Chatterjee PhD, Phone: [phone] Performed By: #### L 3410.9992, L505.5000 ####[facility] [address] [facility] [address] Urine Drug Screen (VISTA)on 11-04-2024 AMPHETAMINES Negative Normal <1000 ng/mL [facility] Comment on above: Order Comment: MEDTO X Performed By: #### L 3410.9992, L505.5000 ####[facility] [address] [facility] [facility] [id number] BARBITIURATES Negative Normal < 200 ng/mL [facility] Comment on above: Order Comment: MEDTO X Performed By: #### L 3410.9992, L505.5000 ####[facility] [address] [place], [address] BENZODIAZIPINE Negative Normal < 200 ng/mL [facility] Comment on above: Order Comment: MEDTO X Performed By: #### L 3410.9992, L505.5000 ####[facility] [address] [place], [address] BUP Ur Drug Scr Negative Normal < 200 ng/mL [facility] Comment on above: Order Comment: MEDTO X Performed By: #### L 3410.9992, L505.5000 ####[facility] [address] [place], [address] COCAINE Negative Normal < 300 ng/mL [facility] Comment on above: Order Comment: MEDTO X Performed By: #### L 3410.9992, L505.5000 ####[facility] [address] [place], [address] Fentanyl Negative Normal [facility] Comment on above: Order Comment: MEDTO X Performed By: #### L 3410.9992, L505.5000 ####[facility] [address] [place], [address] METHADONE Negative Normal < 300 ng/mL [facility] Comment on above: Order Comment: MEDTO X Performed By: #### L 3410.9992, L505.5000 ####[facility] [address] [place], [address] OPIATES Positive Normal < 300 ng/mL [facility] Comment on above: Order Comment: MEDTO X Result Comment: If c onfirmation testing is needed, a separate order will berequired to send out testing to the reference laboratory. Performed By: #### L 3410.9992, L505.5000 ####[facility] [address] [place], [address] OXYCODONE Negative Normal < 100 ng/mL [facility] Comment on above: Order Comment: MEDTO X Performed By: #### L 3410.9992, L505.5000 ####[facility] [address] [place], [address] PCP Negative Normal < 25 ng/mL [facility] Comment on above: Order Comment: MEDTO X Performed By: #### L 3410.9992, L505.5000 ####[facility] [address] [place], [address] THC Positive Normal < 50 ng/mL [facility] Comment on above: Order Comment: MEDTO X Result Comment: If c onfirmation testing is needed, a separate order will berequired to send out testing to the reference laboratory. Performed By: #### L 3410.9992, L505.5000 ####[facility] [address] [place], [address] MR/BMS.BPon 11-03-2024 MR/BMS.BP Normal [facility] CBC W/Diff, Automatedon 10-12 PATH REV Reviewed Normal [facility] Comment on above: Result Comment: SEE REPORT IN PATIENT'S EMR AMENDED REPORT 10/27/24 1016 PATH REV previously reported as: August Performed By: #### L 100.0100, L503.6550, L503.6030, L500.4050, L501.9520, L506.1001 ####[facility] [address] [place], [address] Cardiology Visit Reporton Cardiology Visit Report Normal [facility] CBC W/Diff, Automatedon 10-12 Absolute Lymph 22.36 X10 3/uL High 0.83-4.51 [facility] Comment on above: Performed By: #### L 503.6030, L504.2610, L503.0106, L503.6550, L500.4050, L100.9950, L100.0100 ####[facility] [address] [place], [address] Absolute Neut 1.7 X10 3/uL Low 2.0-7.7 [facility] Comment on above: Performed By: #### L 503.6030, L504.2610, L503.0106, L503.6550, L500.4050, L100.9950, L100.0100 ####[facility] [address] [place], [address] Basophils/100 WBC (Bld) 0.1 % Normal 0-1 [facility] Comment on above: Performed By: #### L 503.6030, L504.2610, L503.0106, L503.6550, L500.4050, L100.9950, L100.0100 ####[facility] [address] [place], [address] Eosinophils/100 WBC (Bld) 0.1 % Normal 0-5 [facility] Comment on above: Performed By: #### L 503.6030, L504.2610, L503.0106, L503.6550, L500.4050, L100.9950, L100.0100 ####[facility] [address] [place], [address] Erythrocyte distribution width (RBC) [Ratio] 15.0 % High 11.6-14.6 [facility] Comment on above: Performed By: #### L 503.6030, L504.2610, L503.0106, L503.6550, L500.4050, L100.9950, L100.0100 ####[facility] [address] [place], [address] Hematocrit (Bld) [Volume fraction] 30.0 % Low 40-54 [facility] Comment on above: Performed By: #### L 503.6030, L504.2610, L503.0106, L503.6550, L500.4050, L100.9950, L100.0100 ####[facility] [address] [place], [address] Hemoglobin (Bld) [Mass/Vol] 9.8 g/dL Low 13.0-16.5 [facility] Comment on above: Performed By: #### L 503.6030, L504.2610, L503.0106, L503.6550, L500.4050, L100.9950, L100.0100 ####[facility] [address] [place], [address] IG% 0.200 Normal 0.0-0.9 [facility] Comment on above: Result Comment: IG% - Immature Granulocytes (promyelocytes, myelocytes andmetamyelocytes) > 1% indicates that a LEFT SHIFT is Present. Performed By: #### L 503.6030, L504.2610, L503.0106, L503.6550, L500.4050, L100.9950, L100.0100 ####[facility] [address] [place], [address] Lymphocytes/100 WBC (Bld) 64.2 % High 19-41 [facility] Comment on above: Performed By: #### L 503.6030, L504.2610, L503.0106, L503.6550, L500.4050, L100.9950, L100.0100 ####[facility] [address] [place], [address] MCH (RBC) [Entitic mass] 46.4 pg High 27.0-32.0 [facility] Comment on above: Performed By: #### L 503.6030, L504.2610, L503.0106, L503.6550, L500.4050, L100.9950, L100.0100 ####[facility] [address] [place], [address] MCHC (RBC) [Mass/Vol] 32.7 g/dL Normal 32-36 [facility] Comment on above: Performed By: #### L 503.6030, L504.2610, L503.0106, L503.6550, L500.4050, L100.9950, L100.0100 ####[facility] [address] [place], [address] MCV (RBC) [Entitic vol] 142.2 fL High 80-94 [facility] Comment on above: Performed By: #### L 503.6030, L504.2610, L503.0106, L503.6550, L500.4050, L100.9950, L100.0100 ####[facility] [address] [place], [address] Monocytes/100 WBC (Bld) 30.6 % High 0-10 [facility] Comment on above: Performed By: #### L 503.6030, L504.2610, L503.0106, L503.6550, L500.4050, L100.9950, L100.0100 ####[facility] [address] [place], [address] Neutrophils/100 WBC (Bld) 4.8 % Low 47-70 [facility] Comment on above: Performed By: #### L 503.6030, L504.2610, L503.0106, L503.6550, L500.4050, L100.9950, L100.0100 ####[facility] [address] [place], [address] Nucleated RBC (Bld) [#/Vol] 0 10*3/uL Normal 0-5 [facility] Comment on above: Performed By: #### L 503.6030, L504.2610, L503.0106, L503.6550, L500.4050, L100.9950, L100.0100 ####[facility] [address] [place], [address] Platelet mean volume (Bld) [Entitic vol] 9.4 fL Normal 6.2-12.0 [facility] Comment on above: Performed By: #### L 503.6030, L504.2610, L503.0106, L503.6550, L500.4050, L100.9950, L100.0100 ####[facility] [address] [place], [address] Platelets (Bld) [#/Vol] 403 10*3/uL Normal 150-450 [facility] Comment on above: Performed By: #### L 503.6030, L504.2610, L503.0106, L503.6550, L500.4050, L100.9950, L100.0100 ####[facility] [address] [place], [address] RBC (Bld) [#/Vol] 2.11 10*6/uL Low 4.6-6.2 [facility] Comment on above: Performed By: #### L 503.6030, L504.2610, L503.0106, L503.6550, L500.4050, L100.9950, L100.0100 ####[facility] [address] [place], [address] RDW SD 77.2 fl High 35.1-43.9 [facility] Comment on above: Performed By: #### L 503.6030, L504.2610, L503.0106, L503.6550, L500.4050, L100.9950, L100.0100 ####[facility] [address] [place], [address] Comprehensive Metabolic Prof ilon 2024 Albumin [Mass/Vol] 4.2 g/dL Normal 3.4-4.8 [facility] Comment on above: Performed By: #### L 503.6030, L504.2610, L503.0106, L503.6550, L500.4050, L100.9950, L100.0100 ####[facility] [address] [place], [address] Albumin/Globulin [Mass ratio] 2.1 {ratio} Normal 0.9-2.4 [facility] Comment on above: Performed By: #### L 503.6030, L504.2610, L503.0106, L503.6550, L500.4050, L100.9950, L100.0100 ####[facility] [address] [place], [address] ALK PHOS 89 U/L Normal 40-129 [facility] Comment on above: Performed By: #### L 503.6030, L504.2610, L503.0106, L503.6550, L500.4050, L100.9950, L100.0100 ####[facility] [address] [place], [address] ALT [Catalytic activity/Vol] 11 U/L Normal <=46 [facility] Comment on above: Performed By: #### L 503.6030, L504.2610, L503.0106, L503.6550, L500.4050, L100.9950, L100.0100 ####[facility] [address] [place], [address] AST [Catalytic activity/Vol] 18 U/L Normal <=37 [facility] Comment on above: Performed By: #### L 503.6030, L504.2610, L503.0106, L503.6550, L500.4050, L100.9950, L100.0100 ####[facility] [address] [place], [address] Bilirubin [Mass/Vol] 0.27 mg/dL Normal 0.00-1.30 [facility] Comment on above: Performed By: #### L 503.6030, L504.2610, L503.0106, L503.6550, L500.4050, L100.9950, L100.0100 ####[facility] [address] [place], [address] BUN/CRE 17.7 RATIO Normal 10-20 [facility] Comment on above: Performed By: #### L 503.6030, L504.2610, L503.0106, L503.6550, L500.4050, L100.9950, L100.0100 ####[facility] [address] [place], [address] Calcium [Mass/Vol] 9.4 mg/dL Normal 7.6-11.0 [facility] Comment on above: Performed By: #### L 503.6030, L504.2610, L503.0106, L503.6550, L500.4050, L100.9950, L100.0100 ####[facility] [address] [place], [address] Chloride [Moles/Vol] 108 mmol/L Normal 98-108 [facility] Comment on above: Performed By: #### L 503.6030, L504.2610, L503.0106, L503.6550, L500.4050, L100.9950, L100.0100 ####[facility] [address] [place], [address] CO2 [Moles/Vol] 19.3 mmol/L Low 21.0-32.0 [facility] Comment on above: Performed By: #### L 503.6030, L504.2610, L503.0106, L503.6550, L500.4050, L100.9950, L100.0100 ####[facility] [address] [place], [address] Creatinine [Mass/Vol] 2.37 mg/dL High 0.70-1.20 [facility] Comment on above: Performed By: #### L 503.6030, L504.2610, L503.0106, L503.6550, L500.4050, L100.9950, L100.0100 ####[facility] [address] [place], [address] ECRCL 28.59 ml/min Low 50-250 [facility] Comment on above: Performed By: #### L 503.6030, L504.2610, L503.0106, L503.6550, L500.4050, L100.9950, L100.0100 ####[facility] [address] [place], [address] GAP 13 Normal 5-15 [facility] Comment on above: Performed By: #### L 503.6030, L504.2610, L503.0106, L503.6550, L500.4050, L100.9950, L100.0100 ####[facility] [address] [place], [address] GFR/1.73 sq M.predicted among non-blacks MDRD (S/P/Bld) [Vol rate/Area] 29 mL/min/{1.73_m2} Low >60 [facility] Comment on above: Result Comment: mL/m in/1.73m2 CKD-EPI Creatinine Equation (2020) Performed By: #### L 503.6030, L504.2610, L503.0106, L503.6550, L500.4050, L100.9950, L100.0100 ####[facility] [address] [place], [address] Globulin (S) [Mass/Vol] 2.0 g/dL Low 2.2-4.2 [facility] Comment on above: Performed By: #### L 503.6030, L504.2610, L503.0106, L503.6550, L500.4050, L100.9950, L100.0100 ####[facility] [address] [place], [address] Glucose [Mass/Vol] 110 mg/dL High 70-99 [facility] Comment on above: Performed By: #### L 503.6030, L504.2610, L503.0106, L503.6550, L500.4050, L100.9950, L100.0100 ####[facility] [address] [place], [address] Potassium [Moles/Vol] 5.3 mmol/L High 3.3-5.1 [facility] Comment on above: Performed By: #### L 503.6030, L504.2610, L503.0106, L503.6550, L500.4050, L100.9950, L100.0100 ####[facility] [address] [place], [address] Sodium [Moles/Vol] 140 mmol/L Normal 133-145 [facility] Comment on above: Performed By: #### L 503.6030, L504.2610, L503.0106, L503.6550, L500.4050, L100.9950, L100.0100 ####[facility] [address] [place], [address] T PROT 6.2 g/dL Normal 5.9-8.4 [facility] Comment on above: Performed By: #### L 503.6030, L504.2610, L503.0106, L503.6550, L500.4050, L100.9950, L100.0100 ####[facility] [address] [place], [address] Urea nitrogen [Mass/Vol] 42 mg/dL High 4-19 [facility] Comment on above: Performed By: #### L 503.6030, L504.2610, L503.0106, L503.6550, L500.4050, L100.9950, L100.0100 ####[facility] [address] [place], [address] Ferritinon 2024 Ferritin [Mass/Vol] 127 ng/mL Normal 37-417 [facility] Comment on above: Performed By: #### L 503.6030, L504.2610, L503.0106, L503.6550, L500.4050, L100.9950, L100.0100 ####[facility] [address] [place], [address] Iron+Iron Binding Capacityon 2024 Iron [Mass/Vol] 87 ug/dL Normal 65-175 [facility] Comment on above: Performed By: #### L 503.6030, L504.2610, L503.0106, L503.6550, L500.4050, L100.9950, L100.0100 ####[facility] [address] [place], [place], [id number] IRON SATURATION 28.0 Normal 9-55 [facility] [facility] Comment on above: Performed By: #### L 503.6030, L504.2610, L503.0106, L503.6550, L500.4050, L100.9950, L100.0100 ####[facility] [address] [place], [address] TIBC 312 ug/dL Normal 250-450 [facility] Comment on above: Performed By: #### L 503.6030, L504.2610, L503.0106, L503.6550, L500.4050, L100.9950, L100.0100 ####[facility] [address] [place], [place], [id number] UIBC 225 ug/dL Low 228-428 [facility] Comment on above: Performed By: #### L 503.6030, L504.2610, L503.0106, L503.6550, L500.4050, L100.9950, L100.0100 ####[facility] [address] [place], [place], [address] LDHon 2024 LDH 184 U/L Normal 87-241 [facility] Comment on above: Order Comment: 1 Performed By: #### L 503.6030, L504.2610, L503.0106, L503.6550, L500.4050, L100.9950, L100.0100 ####[facility] [address] [place], [place], [id number] Oncology Visit Reporton 10-12 Oncology Visit Report Normal [facility] Retic Panelon 2024 IM RET FRACTION 27.60 High 3.00-15.90 [facility] Comment on above: Performed By: #### L 503.6030, L504.2610, L503.0106, L503.6550, L500.4050, L100.9950, L100.0100 ####[facility] [address] [place], [place], [id number] RET-HE 41.3 pg High 30-35 [facility] Comment on above: Performed By: #### L 503.6030, L504.2610, L503.0106, L503.6550, L500.4050, L100.9950, L100.0100 ####[facility] [address] [place], [place], [id number] Retic Count 2.81 High 0.5-1.5 [facility] Comment on above: Performed By: #### L 503.6030, L504.2610, L503.0106, L503.6550, L500.4050, L100.9950, L100.0100 ####[facility] [address] [place], [address] Vitamin B12on 2024 Cobalamin (Vitamin B12) [Mass/Vol] 545 pg/mL Normal 180-914 [facility] Comment on above: Performed By: #### L 503.6030, L504.2610, L503.0106, L503.6550, L500.4050, L100.9950, L100.0100 ####[facility] [address] [place], [address] MR/BMS.BVSon 10-22-2024 MR/BMS.BVS Normal [facility] Basic Metabolic Profile (BMP )on 10-13-2024 BUN/CRE 14.8 RATIO Normal 10-20 [facility] Comment on above: Performed By: #### L 500.2500 ####[facility] [address] [place], [address] Calcium [Mass/Vol] 9.1 mg/dL Normal 7.6-11.0 [facility] Comment on above: Performed By: #### L 500.2500 ####[facility] [address] [place], [address] Chloride [Moles/Vol] 106 mmol/L Normal 98-108 [facility] Comment on above: Performed By: #### L 500.2500 ####[facility] [address] [place], [address] CO2 [Moles/Vol] 21.1 mmol/L Normal 21.0-32.0 [facility] Comment on above: Performed By: #### L 500.2500 ####[facility] [address] [place], [address] Creatinine [Mass/Vol] 2.17 mg/dL High 0.70-1.20 [facility] Comment on above: Performed By: #### L 500.2500 ####[facility] [address] [place], [address] GAP 14 Normal 5-15 [facility] Comment on above: Performed By: #### L 500.2500 ####[facility] [address] [place], [address] GFR/1.73 sq M.predicted among non-blacks MDRD (S/P/Bld) [Vol rate/Area] 32 mL/min/{1.73_m2} Low >60 [facility] Comment on above: Result Comment: mL/m in/1.73m2 CKD-EPI Creatinine Equation (2020) Performed By: #### L 500.2500 ####[facility] [address] [place], [address] Glucose [Mass/Vol] 84 mg/dL Normal 70-99 [facility] Comment on above: Performed By: #### L 500.2500 ####[facility] [address] [place], [address] Potassium [Moles/Vol] 4.7 mmol/L Normal 3.3-5.1 [facility] Comment on above: Performed By: #### L 500.2500 ####[facility] [address] [place], [address] Sodium [Moles/Vol] 141 mmol/L Normal 133-145 [facility] Comment on above: Performed By: #### L 500.2500 ####[facility] [address] [place], [address] Urea nitrogen [Mass/Vol] 32 mg/dL High 4-19 [facility] Comment on above: Performed By: #### L 500.2500 ####[facility] [address] [place], [address] Lower Ext Art Exam w/o Exerc shante 10-13-2024 Lower Ext Art Exam w/o Exercis Normal [facility] Comprehensive Metabolic Prof ilon 10-07-2024 Albumin [Mass/Vol] 4.3 g/dL Normal 3.4-4.8 [facility] Comment on above: Performed By: #### L 100.0100, L503.6550, L503.6030, L500.4050, L501.9520, L506.1001 ####[facility] [address] [place], [address] Albumin/Globulin [Mass ratio] 2.0 {ratio} Normal 0.9-2.4 [facility] Comment on above: Performed By: #### L 100.0100, L503.6550, L503.6030, L500.4050, L501.9520, L506.1001 ####[facility] [address] [place], [address] ALK PHOS 98 U/L Normal 40-129 [facility] Comment on above: Performed By: #### L 100.0100, L503.6550, L503.6030, L500.4050, L501.9520, L506.1001 ####[facility] [address] [place], [address] ALT [Catalytic activity/Vol] 13 U/L Normal <=46 [facility] Comment on above: Performed By: #### L 100.0100, L503.6550, L503.6030, L500.4050, L501.9520, L506.1001 ####[facility] [address] [place], [address] AST [Catalytic activity/Vol] 20 U/L Normal <=37 [facility] Comment on above: Performed By: #### L 100.0100, L503.6550, L503.6030, L500.4050, L501.9520, L506.1001 ####[facility] [address] [place], [address] Bilirubin [Mass/Vol] 0.28 mg/dL Normal 0.00-1.30 [facility] Comment on above: Performed By: #### L 100.0100, L503.6550, L503.6030, L500.4050, L501.9520, L506.1001 ####[facility] [address] [place], [address] BUN/CRE 16.1 RATIO Normal 10-20 [facility] Comment on above: Performed By: #### L 100.0100, L503.6550, L503.6030, L500.4050, L501.9520, L506.1001 ####[facility] [address] [place], [address] Calcium [Mass/Vol] 9.7 mg/dL Normal 7.6-11.0 [facility] Comment on above: Performed By: #### L 100.0100, L503.6550, L503.6030, L500.4050, L501.9520, L506.1001 ####[facility] [address] [place], [address] Chloride [Moles/Vol] 104 mmol/L Normal 98-108 [facility] Comment on above: Performed By: #### L 100.0100, L503.6550, L503.6030, L500.4050, L501.9520, L506.1001 ####[facility] [address] [place], [address] CO2 [Moles/Vol] 20.7 mmol/L Low 21.0-32.0 [facility] Comment on above: Performed By: #### L 100.0100, L503.6550, L503.6030, L500.4050, L501.9520, L506.1001 ####[facility] [address] [place], [address] Creatinine [Mass/Vol] 2.01 mg/dL High 0.70-1.20 [facility] Comment on above: Performed By: #### L 100.0100, L503.6550, L503.6030, L500.4050, L501.9520, L506.1001 ####[facility] [address] [place], [address] GAP 15 Normal 5-15 [facility] Comment on above: Performed By: #### L 100.0100, L503.6550, L503.6030, L500.4050, L501.9520, L506.1001 ####[facility] [address] [place], [address] GFR/1.73 sq M.predicted among non-blacks MDRD (S/P/Bld) [Vol rate/Area] 35 mL/min/{1.73_m2} Low >60 [facility] Comment on above: Result Comment: mL/m in/1.73m2 CKD-EPI Creatinine Equation (2020) Performed By: #### L 100.0100, L503.6550, L503.6030, L500.4050, L501.9520, L506.1001 ####[facility] [address] [place], [address] Globulin (S) [Mass/Vol] 2.1 g/dL Low 2.2-4.2 [facility] Comment on above: Performed By: #### L 100.0100, L503.6550, L503.6030, L500.4050, L501.9520, L506.1001 ####[facility] [address] [place], [address] Glucose [Mass/Vol] 103 mg/dL High 70-99 [facility] Comment on above: Performed By: #### L 100.0100, L503.6550, L503.6030, L500.4050, L501.9520, L506.1001 ####[facility] [address] [place], [address] Potassium [Moles/Vol] 5.5 mmol/L High 3.3-5.1 [facility] Comment on above: Performed By: #### L 100.0100, L503.6550, L503.6030, L500.4050, L501.9520, L506.1001 ####[facility] [address] [place], [address] Sodium [Moles/Vol] 140 mmol/L Normal 133-145 [facility] Comment on above: Performed By: #### L 100.0100, L503.6550, L503.6030, L500.4050, L501.9520, L506.1001 ####[facility] [address] [place], [address] T PROT 6.4 g/dL Normal 5.9-8.4 [facility] Comment on above: Performed By: #### L 100.0100, L503.6550, L503.6030, L500.4050, L501.9520, L506.1001 ####[facility] [address] [place], [address] Urea nitrogen [Mass/Vol] 32 mg/dL High 4-19 [facility] Comment on above: Performed By: #### L 100.0100, L503.6550, L503.6030, L500.4050, L501.9520, L506.1001 ####[facility] [address] [place], [address] Ferritinon 10-07-2024 Ferritin [Mass/Vol] 196 ng/mL Normal 37-417 [facility] Comment on above: Performed By: #### L 100.0100, L503.6550, L503.6030, L500.4050, L501.9520, L506.1001 ####[facility] [address] [place], [address] Iron+Iron Binding Capacityon 10-07-2024 Iron [Mass/Vol] 112 ug/dL Normal 65-175 [facility] Comment on above: Performed By: #### L 100.0100, L503.6550, L503.6030, L500.4050, L501.9520, L506.1001 ####[facility] [address] [place], [address] IRON SATURATION 40.0 Normal 9-55 [facility] Comment on above: Performed By: #### L 100.0100, L503.6550, L503.6030, L500.4050, L501.9520, L506.1001 ####[facility] [address] [place], [address] TIBC 283 ug/dL Normal 250-450 [facility] Comment on above: Performed By: #### L 100.0100, L503.6550, L503.6030, L500.4050, L501.9520, L506.1001 ####[facility] [address] [place], [address] UIBC 171 ug/dL Low 228-428 [facility] Comment on above: Performed By: #### L 100.0100, L503.6550, L503.6030, L500.4050, L501.9520, L506.1001 ####[facility] [address] [place], [address] Thyroid Stim Hormone (TSH)on 10-07-2024 TSH 1.480 uIU/mL Normal 0.300-4.200 [facility] Comment on above: Performed By: #### L 100.0100, L503.6550, L503.6030, L500.4050, L501.9520, L506.1001 ####[facility] [address] [place], [address] Vitamin D,25 Hydroxyon 10-07 Vitamin D 25-OH 38.1 ng/mL Normal 30-100 [facility] Comment on above: Result Comment: Mila min D StatusDeficiency: <20 ng/mL (50nmol/L)Insufficiency: 20-30 ng/mL (50-75 nmol/L)Sufficiency: 30-100 ng/mL (75-250 nmol/L)Toxicity: >100 ng/mL (>250 nmol/L) Performed By: #### L 100.0100, L503.6550, L503.6030, L500.4050, L501.9520, L506.1001 ####[facility] [address] [place], [address] Inital Evaluation (1) - PTon 10-06-2024 Inital Evaluation (1) - PT Normal [facility] MR/BMS.BPon 09-19-2024 MR/BMS.BP Normal [facility] Acid Fast Bacillus Cultureon 09-13-2024 tAFBC [facility] Comment on above: Performed By: #### M 600.2000, M300.2000, M300.3000, M100.2000, M100.2400 ####[facility] [address] [place], [address] Acid Fast Bacillus Smear/Flu oron 09-13-2024 tafb [facility] Comment on above: Performed By: #### M 600.2000, M300.2000, M300.3000, M100.2000, M100.2400 ####[facility] [address] [place], [address] Culture, Fungus 8482on 09-13 CUF [facility] Comment on above: Performed By: #### M 600.2000, M300.2000, M300.3000, M100.2000, M100.2400 ####[facility] [address] [place], [address] MR/BMS.BPon 08-27-2024 MR/BMS.BP Normal [facility] CBC W/Diff, Automatedon 07-14 PATH REV Reviewed Normal [facility] Comment on above: Order Comment: CRITI KENTRELL VALUE CALLED TO MISTY07/29/24 1438 Preeti Santoyo.RESULTS READ BACK BY ELROY. 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 [place], [place], [address] PATH REV Reviewed Normal [facility] Comment on above: Result Comment: SEE REPORT IN PATIENT'S EMR AMENDED REPORT 08/06/24 0857 PATH REV previously reported as: August foll Performed By: #### L 500.2500, L100.0100 ####[facility] [address] [place], [place], [address] Chiropractic Reporton 2024 Chiropractic Report Normal [facility] Immunoglobulin Yosef 5 IMMUNOGLOB G QN 411 mg/dL Low 603-4883 [facility] Comment on above: Result Comment: Perf ormed at: - [facility] [address] [id number] Director: Jorge Chatterjee PhD, Phone: [phone] Performed By: #### L 5740.1300 ####[facility] [address] [place], [place], [address] Ferritinon 07-29-2024 Ferritin [Mass/Vol] 321 ng/mL Normal 37-417 [facility] Comment on above: Order Comment: ADD O N FROM EARLIER TODAY, THANKS Performed By: #### L 116.3381, L503.6560 ####[facility] [address] [place], [address] Iron+Iron Binding Capacityon 07-29-2024 Iron [Mass/Vol] 33 ug/dL Low 65-175 [facility] Comment on above: Order Comment: ADD O N FROM EARLIER TODAY, THANKS Performed By: #### L 503.6030, L503.6550 ####[facility] [address] [place], [address] IRON SATURATION 13.0 Normal 9-55 [facility] Comment on above: Order Comment: ADD O N FROM EARLIER TODAY, THANKS Performed By: #### L 503.6030, L503.6550 ####[facility] [address] [place], [address] TIBC 245 ug/dL Low 250-450 [facility] Comment on above: Order Comment: ADD O N FROM EARLIER TODAY, THANKS Performed By: #### L 503.6030, L503.6550 ####[facility] [address] [place], [address] UIBC 212 ug/dL Low 228-428 [facility] Comment on above: Order Comment: ADD O N FROM EARLIER TODAY, THANKS Performed By: #### L 503.6030, L503.6550 ####[facility] [address] [place], [address] Oncology Visit Reporton 07-13 Oncology Visit Report Normal [facility] Respiratory Cultureon 2024 RESPC Normal [facility] Comment on above: Performed By: #### M 600.2000, M300.2000, M300.3000, M100.2000, M100.2400 ####[facility] [address] [place], [address] Gram Stainon 07-26-2024 GS Acceptable Specimen? Yes (<25 Epithelial cells per/lpf) Gram Stain 3+ Gram positive cocci 3+ Gram negative rods 2+ Gram positive rods 3+ White Blood Cells 1+ Epithelial cells Normal [facility] Comment on above: Performed By: #### M 600.2000, M300.2000, M300.3000, M100.2000, M100.2400 ####[facility] [address] [place], [address] CBC W/Diff, Automatedon 04- PATH REV N/A Normal [facility] Comment on above: Result Comment: AMENDED REPORT 07/21/242157 PATH REV previously reported as: August Performed By: #### L 100.0100, L500.4050, L501.9520, L506.1001 ####[facility] [address] [place], [address] Comprehensive Metabolic Prof ilon 07-20-2024 Albumin [Mass/Vol] 3.5 g/dL Normal 3.4-4.8 [facility] Comment on above: Performed By: #### L 100.0100, L500.4050, L501.9520, L506.1001 ####[facility] [address] [place], [address] Albumin/Globulin [Mass ratio] 1.3 {ratio} Normal 0.9-2.4 [facility] Comment on above: Performed By: #### L 100.0100, L500.4050, L501.9520, L506.1001 ####[facility] [address] [place], [address] ALK PHOS 118 U/L Normal 40-129 [facility] Comment on above: Performed By: #### L 100.0100, L500.4050, L501.9520, L506.1001 ####[facility] [address] [place], [address] ALT [Catalytic activity/Vol] 27 U/L Normal <=46 [facility] Comment on above: Performed By: #### L 100.0100, L500.4050, L501.9520, L506.1001 ####[facility] [address] [place], [address] AST [Catalytic activity/Vol] 17 U/L Normal <=37 [facility] Comment on above: Performed By: #### L 100.0100, L500.4050, L501.9520, L506.1001 ####[facility] [address] [place], [address] Bilirubin [Mass/Vol] 0.33 mg/dL Normal 0.00-1.30 [facility] Comment on above: Performed By: #### L 100.0100, L500.4050, L501.9520, L506.1001 ####[facility] [address] [place], [address] BUN/CRE 14.0 RATIO Normal 10-20 [facility] Comment on above: Performed By: #### L 100.0100, L500.4050, L501.9520, L506.1001 ####[facility] [address] [place], [address] Calcium [Mass/Vol] 9.1 mg/dL Normal 7.6-11.0 [facility] Comment on above: Performed By: #### L 100.0100, L500.4050, L501.9520, L506.1001 ####[facility] [address] [place], [address] Chloride [Moles/Vol] 101 mmol/L Normal 98-108 [facility] Comment on above: Performed By: #### L 100.0100, L500.4050, L501.9520, L506.1001 ####[facility] [address] [place], [address] CO2 [Moles/Vol] 22.7 mmol/L Normal 21.0-32.0 [facility] Comment on above: Performed By: #### L 100.0100, L500.4050, L501.9520, L506.1001 ####[facility] [address] [place], [address] Creatinine [Mass/Vol] 1.82 mg/dL High 0.70-1.20 [facility] Comment on above: Performed By: #### L 100.0100, L500.4050, L501.9520, L506.1001 ####[facility] [address] [place], [address] GAP 14 Normal 5-15 [facility] Comment on above: Performed By: #### L 100.0100, L500.4050, L501.9520, L506.1001 ####[facility] [address] [place], [address] GFR/1.73 sq M.predicted among non-blacks MDRD (S/P/Bld) [Vol rate/Area] 39 mL/min/{1.73_m2} Low >60 [facility] Comment on above: Result Comment: mL/m in/1.73m2 CKD-EPI Creatinine Equation (2020) Performed By: #### L 100.0100, L500.4050, L501.9520, L506.1001 ####[facility] [address] [place], [address] Globulin (S) [Mass/Vol] 2.7 g/dL Normal 2.2-4.2 [facility] Comment on above: Performed By: #### L 100.0100, L500.4050, L501.9520, L506.1001 ####[facility] [address] [place], [address] Glucose [Mass/Vol] 117 mg/dL High 70-99 [facility] Comment on above: Performed By: #### L 100.0100, L500.4050, L501.9520, L506.1001 ####[facility] [address] [place], [address] Potassium [Moles/Vol] 4.3 mmol/L Normal 3.3-5.1 [facility] Comment on above: Performed By: #### L 100.0100, L500.4050, L501.9520, L506.1001 ####[facility] [address] [place], [address] Sodium [Moles/Vol] 138 mmol/L Normal 133-145 [facility] Comment on above: Performed By: #### L 100.0100, L500.4050, L501.9520, L506.1001 ####[facility] [address] [place], [address] T PROT 6.2 g/dL Normal 5.9-8.4 [facility] Comment on above: Performed By: #### L 100.0100, L500.4050, L501.9520, L506.1001 ####[facility] [address] [place], [address] Urea nitrogen [Mass/Vol] 25 mg/dL High 4-19 [facility] Comment on above: Performed By: #### L 100.0100, L500.4050, L501.9520, L506.1001 ####[facility] [address] [place], [address] Thyroid Stim Hormone (TSH)on 07-20-2024 TSH 0.371 uIU/mL Normal 0.300-4.200 [facility] Comment on above: Performed By: #### L 100.0100, L500.4050, L501.9520, L506.1001 ####[facility] [address] [place], [address] Vitamin D,25 Hydroxyon 07-20 Vitamin D 25-OH 31.4 ng/mL Normal 30-100 [facility] Comment on above: Result Comment: Mila min D StatusDeficiency: <20 ng/mL (50nmol/L)Insufficiency: 20-30 ng/mL (50-75 nmol/L)Sufficiency: 30-100 ng/mL (75-250 nmol/L)Toxicity: >100 ng/mL (>250 nmol/L) Performed By: #### L 100.0100, L500.4050, L501.9520, L506.1001 ####[facility] [address] [place], [address] CBC W/Diff, Automatedon 04-0 PATH REV N/A Normal [facility] Comment on above: Result Comment: AMENDED REPORT 07/18/24 1800 PATH REV previously reported as: August kathe Performed By: #### L 500.2500, L100.0100 ####[facility] [address] [place], [address] HH, Hemoglobin AND Hematocri ton 07-14-2024 Hematocrit (Bld) [Volume fraction] 30.6 % Low 40-54 [facility] Comment on above: Order Comment: 24 HO URS POST TRANFUSION Performed By: #### L 100.0600 ####[facility] [address] [place], [address] Hemoglobin (Bld) [Mass/Vol] 10.2 g/dL Low 13.0-16.5 [facility] Comment on above: Order Comment: 24 HO URS POST TRANFUSION Performed By: #### L 100.0600 ####[facility] [address] [place], [address] HH, Hemoglobin AND Hematocri ton 07-12-2024 Hematocrit (Bld) [Volume fraction] 24.1 % Low 40-54 [facility] Comment on above: Performed By: #### L 100.0600 ####[facility] [address] [place], [address] Hemoglobin (Bld) [Mass/Vol] 8.1 g/dL Low 13.0-16.5 [facility] Comment on above: Performed By: #### L 100.0600 ####[facility] [address] [place], [address] MR/CON.PCM.GIon 07-12-2024 MR/CON.PCM.GI Normal [facility] BRCon 07-11-2024 RC Normal [facility] Comment on above: Result Comment: [id number] BN RC TRANSFUSED 07/13/24 [id number] BN RC NOT AVAILABLE Performed By: #### B [facility] ####[facility] [address] [place], [address] Type AND Screenon 07-11-2024 ABO and Rh group Nom (Bld) Blood group B Rh(D) positive Normal [facility] Comment on above: Order Comment: CMV N EG? NNumber of units to transfuse: 2Reason for Ordering Blood: AcuteAre the blood/blood products to be transfused? YIs the patient having/had surgery? YWhen ReadyELADIAA Performed By: #### [facility] ####[facility] [id number] [place], [address] HH, Hemoglobin AND Hematocri ton 07-10-2024 Hematocrit (Bld) [Volume fraction] 22.7 % Low 40-54 [facility] Comment on above: Performed By: #### L [id number] ####[facility] [id number] [place], [address] Hemoglobin (Bld) [Mass/Vol] 7.6 g/dL Low 13.0-16.5 [facility] Comment on above: Performed By: #### L 100.0600 ####[facility] [address] [place], [address] Stool Occult Blood iFOBon STOB Normal [facility] Comment on above: Performed By: #### M 100.7900 ####[facility] [address] [place], [address] CBC W/Diff, Automatedon - Anisocytosis Ql (Bld) 3+ Normal [facility] Comment on above: Performed By: #### L 100.0100, L500.4050 ####[facility] [address] [place], [address] PLT EST SLT DEC Normal ADEQ [facility] Comment on above: Performed By: #### L 100.0100, L500.4050 ####[facility] [address] [place], [address] Comprehensive Metabolic Prof ilon 07-09-2024 Albumin [Mass/Vol] 3.5 g/dL Normal 3.4-4.8 [facility] Comment on above: Performed By: #### L 100.0100, L500.4050 ####[facility] [address] [place], [address] Albumin/Globulin [Mass ratio] 1.5 {ratio} Normal 0.9-2.4 [facility] Comment on above: Performed By: #### L 100.0100, L500.4050 ####[facility] [address] [place], [address] ALK PHOS 98 U/L Normal 40-129 [facility] Comment on above: Performed By: #### L 100.0100, L500.4050 ####[facility] [address] [place], [address] ALT [Catalytic activity/Vol] 17 U/L Normal <=46 [facility] Comment on above: Performed By: #### L 100.0100, L500.4050 ####[facility] [address] [place], [address] AST [Catalytic activity/Vol] 17 U/L Normal <=37 [facility] Comment on above: Performed By: #### L 100.0100, L500.4050 ####[facility] [address] [place], [address] Bilirubin [Mass/Vol] 0.50 mg/dL Normal 0.00-1.30 [facility] Comment on above: Performed By: #### L 100.0100, L500.4050 ####[facility] [address] [place], [address] BUN/CRE 15.0 RATIO Normal 10-20 [facility] Comment on above: Performed By: #### L 100.0100, L500.4050 ####[facility] [address] [place], [address] Calcium [Mass/Vol] 9.7 mg/dL Normal 7.6-11.0 [facility] Comment on above: Performed By: #### L 100.0100, L500.4050 ####[facility] [address] [place], [address] Chloride [Moles/Vol] 107 mmol/L Normal 98-108 [facility] Comment on above: Performed By: #### L 100.0100, L500.4050 ####[facility] [address] [place], [address] CO2 [Moles/Vol] 20.9 mmol/L Low 21.0-32.0 [facility] Comment on above: Performed By: #### L 100.0100, L500.4050 ####[facility] [address] [place], [address] Creatinine [Mass/Vol] 1.75 mg/dL High 0.70-1.20 [facility] Comment on above: Performed By: #### L 100.0100, L500.4050 ####[facility] [address] [place], [address] ECRCL 39.28 ml/min Low 50-250 [facility] Comment on above: Performed By: #### L 100.0100, L500.4050 ####[facility] [address] [place], [address] GAP 11 Normal 5-15 [facility] Comment on above: Performed By: #### L 100.0100, L500.4050 ####[facility] [address] [place], [address] GFR/1.73 sq M.predicted among non-blacks MDRD (S/P/Bld) [Vol rate/Area] 41 mL/min/{1.73_m2} Low >60 [facility] Comment on above: Result Comment: mL/m in/1.73m2 CKD-EPI Creatinine Equation (2020) Performed By: #### L 100.0100, L500.4050 ####[facility] [address] [place], [address] Globulin (S) [Mass/Vol] 2.3 g/dL Normal 2.2-4.2 [facility] Comment on above: Performed By: #### L 100.0100, L500.4050 ####[facility] [address] [place], [address] Glucose [Mass/Vol] 110 mg/dL High 70-99 [facility] Comment on above: Performed By: #### L 100.0100, L500.4050 ####[facility] [address] [place], [address] Potassium [Moles/Vol] 5.1 mmol/L Normal 3.3-5.1 [facility] Comment on above: Performed By: #### L 100.0100, L500.4050 ####[facility] [address] [place], [address] Sodium [Moles/Vol] 140 mmol/L Normal 133-145 [facility] Comment on above: Performed By: #### L 100.0100, L500.4050 ####[facility] [address] [place], [address] T PROT 5.8 g/dL Low 5.9-8.4 [facility] Comment on above: Performed By: #### L 100.0100, L500.4050 ####[facility] [address] [place], [address] Urea nitrogen [Mass/Vol] 26 mg/dL High 4-19 [facility] Comment on above: Performed By: #### L 100.0100, L500.4050 ####[facility] [address] [place], [address] CBC W/Diff, Automatedon 06-13 PATH REV N/A Normal [facility] Comment on above: Result Comment: AMENDED REPORT 07/06/24 1049 PATH REV previously reported as: August Performed By: #### L 500.2500, L100.0100 ####[facility] [address] [place], [address] Basic Metabolic Profile (BMP )on 07-02-2024 BUN/CRE 28.5 RATIO High 10-20 [facility] Comment on above: Performed By: #### L 500.2500, L100.0100 ####[facility] [address] [place], [address] Calcium [Mass/Vol] 9.9 mg/dL Normal 7.6-11.0 [facility] Comment on above: Performed By: #### L 500.2500, L100.0100 ####[facility] [address] [place], [address] Chloride [Moles/Vol] 105 mmol/L Normal 98-108 [facility] Comment on above: Performed By: #### L 500.2500, L100.0100 ####[facility] [address] [place], [address] CO2 [Moles/Vol] 21.1 mmol/L Normal 21.0-32.0 [facility] Comment on above: Performed By: #### L 500.2500, L100.0100 ####[facility] [address] [place], [address] Creatinine [Mass/Vol] 1.55 mg/dL High 0.70-1.20 [facility] Comment on above: Performed By: #### L 500.2500, L100.0100 ####[facility] [address] [place], [address] ECRCL 44.35 ml/min Low 50-250 [facility] Comment on above: Performed By: #### L 500.2500, L100.0100 ####[facility] [address] [place], [address] GAP 14 Normal 5-15 [facility] Comment on above: Performed By: #### L 500.2500, L100.0100 ####[facility] [address] [place], [address] GFR/1.73 sq M.predicted among non-blacks MDRD (S/P/Bld) [Vol rate/Area] 48 mL/min/{1.73_m2} Low >60 [facility] Comment on above: Result Comment: mL/m in/1.73m2 CKD-EPI Creatinine Equation (2020) Performed By: #### L 500.2500, L100.0100 ####[facility] [address] [place], [address] Glucose [Mass/Vol] 85 mg/dL Normal 70-99 [facility] Comment on above: Performed By: #### L 500.2500, L100.0100 ####[facility] [address] [place], [address] Potassium [Moles/Vol] 5.1 mmol/L Normal 3.3-5.1 [facility] Comment on above: Performed By: #### L 500.2500, L100.0100 ####[facility] [address] [place], [address] Sodium [Moles/Vol] 139 mmol/L Normal 133-145 [facility] Comment on above: Performed By: #### L 500.2500, L100.0100 ####[facility] [address] [place], [address] Urea nitrogen [Mass/Vol] 44 mg/dL High 4-19 [facility] Comment on above: Performed By: #### L 500.2500, L100.0100 ####[facility] [address] [place], [address] Basic Metabolic Profile (BMP )on 06-24-2024 EST GFR - AA TNP Normal >60 [facility] Comment on above: Performed By: #### L 500.2500, L100.0100 ####[facility] [address] [place], [address] Respiratory Cultureon 2024 RESPC Normal [facility] Comment on above: Performed By: #### M 100.2000, M100.2400 ####[facility] [address] [place], [address] Basic Metabolic Profile (BMP )on 06-17-2024 EST GFR - AA TNP Normal >60 [facility] Comment on above: Performed By: #### L 500.2500, L100.0100 ####[facility] [address] [place], [address] Chest without Contraston Chest without Contrast Normal [facility] Gram Stainon 06-16-2024 GS Acceptable Specimen? Yes (<25 Epithelial cells per/lpf) Gram Stain 1+ Gram negative rods 2+ Gram positive cocci Rare White Blood Cells Rare Epithelial cells Normal [facility] Comment on above: Performed By: #### M 100.2000, M100.2400 ####[facility] [address] [place], [address] COVID 19 AG RAPID (RN PATRICIO Carey)on 06-15-2024 SARS-CoV-2 (COVID-19) RNA MYA+probe Ql (Unsp spec) Normal [facility] Comment on above: Performed By: #### M 100.505 ####[facility] [address] [place], [address] Chest PA and Lateralon 06-15 Chest PA and Lateral Normal [facility] MR/BMS.BPon 06-15-2024 MR/BMS.BP Normal [facility] RESPIRATORY PANEL MOLECULARo n 06-15-2024 RP PANEL Normal [facility] Comment on above: Performed By: #### M 100.638 ####[facility] [address] [place], [address] Basic Metabolic Profile (BMP )on 06-10-2024 Chloride [Moles/Vol] 104 mmol/L Normal 98-107 [facility] Comment on above: Performed By: #### L 100.0100, L500.2500 ####[facility] [address] [place], [address] CO2 [Moles/Vol] 21.2 mmol/L Normal 21.0-32.0 [facility] Comment on above: Performed By: #### L 100.0100, L500.2500 ####[facility] [address] [place], [address] GAP 14 Normal 5-15 [facility] Comment on above: Performed By: #### L 100.0100, L500.2500 ####[facility] [address] [place], [address] Calcium [Mass/Vol] 9.5 mg/dL Normal 7.6-11.0 [facility] Comment on above: Performed By: #### L 100.0100, L500.2500 ####[facility] [address] [place], [address] EST GFR - AA TNP Normal >60 [facility] Comment on above: Performed By: #### L 100.0100, L500.2500 ####[facility] [address] [place], [address] Potassium [Moles/Vol] 4.9 mmol/L Normal 3.5-5.1 [facility] Comment on above: Performed By: #### L 100.0100, L500.2500 ####[facility] [address] [place], [address] Sodium [Moles/Vol] 139 mmol/L Normal 136-145 [facility] Comment on above: Performed By: #### L 100.0100, L500.2500 ####[facility] [address] [place], [address] CBC W/Diff, Automatedon 02- Anisocytosis Ql (Bld) 2+ Normal [facility] Comment on above: Performed By: #### L 100.0100, L500.2500 ####[facility] [address] [place], [address] SMUDGE CELLS 2+ Normal [facility] Comment on above: Performed By: #### L 100.0100, L500.2500 ####[facility] [address] [place], [address] TOXIC GRAN 1+ Normal [facility] Comment on above: Performed By: #### L 100.0100, L500.2500 ####[facility] [address] [place], [address] Basic Metabolic Profile (BMP )on 06-08-2024 Anion gap [Moles/Vol] 12 mmol/L Normal 5-15 [facility] Comment on above: Performed By: #### L 500.2500 ####[facility] [address] [place], [address] BUN/CRE 18.0 RATIO Normal 10-20 [facility] Comment on above: Performed By: #### L 500.2500 ####[facility] [address] [place], [address] Calcium [Mass/Vol] 9.8 mg/dL Normal 7.6-11.0 [facility] Comment on above: Performed By: #### L 500.2500 ####[facility] [address] [place], [address] Chloride [Moles/Vol] 103 mmol/L Normal 96-108 [facility] Comment on above: Performed By: #### L 500.2500 ####[facility] [address] [place], [address] CO2 [Moles/Vol] 22.0 mmol/L Normal 22.0-29.0 [facility] Comment on above: Performed By: #### L 500.2500 ####[facility] [address] [place], [address] Creatinine [Mass/Vol] 1.6 mg/dL High 0.8-1.3 [facility] Comment on above: Performed By: #### L 500.2500 ####[facility] [address] [place], [address] ECRCL 42.96 ml/min Normal [facility] Comment on above: Performed By: #### L 500.2500 ####[facility] [address] [place], [address] GFR/1.73 sq M.predicted among non-blacks MDRD (S/P/Bld) [Vol rate/Area] 47 mL/min/{1.73_m2} Low >60 [facility] Comment on above: Result Comment: mL/m in/1.73m2 CKD-EPI Creatinine Equation (2020) Performed By: #### L 500.2500 ####[facility] [address] [place], [address] Glucose [Mass/Vol] 80 mg/dL Normal 70-99 [facility] Comment on above: Performed By: #### L 500.2500 ####[facility] [address] [place], [address] Potassium [Moles/Vol] 4.9 mmol/L Normal 3.3-5.1 [facility] Comment on above: Performed By: #### L 500.2500 ####[facility] [address] [place], [address] Sodium [Moles/Vol] 137 mmol/L Normal 133-145 [facility] Comment on above: Performed By: #### L 500.2500 ####[facility] [address] [place], [address] Urea nitrogen [Mass/Vol] 28 mg/dL High 4-19 [facility] Comment on above: Performed By: #### L 500.2500 ####[facility] [address] [place], [address] BUN Normal 7-18 [facility] Comment on above: Result Comment: PUTT ING UNDER DIFFERENT REQ Performed By: #### L 500.2500, L100.0500, L100.4500 ####[facility] [address] [place], [address] BUN/CRE Normal 10-20 [facility] Comment on above: Result Comment: PUTT ING UNDER DIFFERENT REQ Performed By: #### L 500.2500, L100.0500, L100.4500 ####[facility] [address] [place], [address] Calcium Normal 8.5-10.1 [facility] Comment on above: Result Comment: PUTT ING UNDER DIFFERENT REQ Performed By: #### L 500.2500, L100.0500, L100.4500 ####[facility] [address] [place], [address] CL Normal 98-107 [facility] Comment on above: Result Comment: PUTT ING UNDER DIFFERENT REQ Performed By: #### L 500.2500, L100.0500, L100.4500 ####[facility] [address] [place], [address] CO2 Normal 21.0-32.0 [facility] Comment on above: Result Comment: PUTT ING UNDER DIFFERENT REQ Performed By: #### L 500.2500, L100.0500, L100.4500 ####[facility] [address] [place], [address] CREAT,SERUM Normal 0.70-1.30 [facility] Comment on above: Result Comment: PUTT ING UNDER DIFFERENT REQ Performed By: #### L 500.2500, L100.0500, L100.4500 ####[facility] [address] [place], [address] eGFR Normal >60 [facility] Comment on above: Result Comment: PUTT ING UNDER DIFFERENT REQ Performed By: #### L 500.2500, L100.0500, L100.4500 ####[facility] [address] [place], [address] EST GFR - AA Normal >60 [facility] Comment on above: Result Comment: PUTT ING UNDER DIFFERENT REQ Performed By: #### L 500.2500, L100.0500, L100.4500 ####[facility] [address] [place], [address] GAP Normal 5-15 [facility] Comment on above: Result Comment: PUTT ING UNDER DIFFERENT REQ Performed By: #### L 500.2500, L100.0500, L100.4500 ####[facility] [address] [place], [address] GLU Normal 74-106 [facility] Comment on above: Result Comment: PUTT ING UNDER DIFFERENT REQ Performed By: #### L 500.2500, L100.0500, L100.4500 ####[facility] [address] [place], [address] Potassium Normal 3.5-5.1 [facility] Comment on above: Result Comment: PUTT ING UNDER DIFFERENT REQ Performed By: #### L 500.2500, L100.0500, L100.4500 ####[facility] [address] [place], [address] Basic Metabolic Profile (BMP) Normal 136-145 [facility] Comment on above: Result Comment: PUTT ING UNDER DIFFERENT REQ Performed By: #### L 500.2500, L100.0500, L100.4500 ####[facility] [address] [place], [address] CBC-Complete Blood Cnt No Di ffon 06-08-2024 Hematocrit (Bld) [Volume fraction] 34.2 % Low 40-54 [facility] Comment on above: Performed By: #### L 500.2500, L100.0500, L100.4500 ####[facility] [address] [place], [address] Hemoglobin (Bld) [Mass/Vol] 10.7 g/dL Low 13.0-16.5 [facility] Comment on above: Performed By: #### L 500.2500, L100.0500, L100.4500 ####[facility] [address] [place], [address] MCH (RBC) [Entitic mass] 35.9 pg High 27.0-32.0 [facility] Comment on above: Performed By: #### L 500.2500, L100.0500, L100.4500 ####[facility] [address] [place], [address] MCHC (RBC) [Mass/Vol] 31.3 g/dL Low 32-36 [facility] Comment on above: Performed By: #### L 500.2500, L100.0500, L100.4500 ####[facility] [address] [place], [address] MCV (RBC) [Entitic vol] 114.8 fL High 80-94 [facility] Comment on above: Performed By: #### L 500.2500, L100.0500, L100.4500 ####[facility] [address] [place], [address] Platelet mean volume (Bld) [Entitic vol] 9.2 fL Normal 6.2-12.0 [facility] Comment on above: Performed By: #### L 500.2500, L100.0500, L100.4500 ####[facility] [address] [place], [address] Platelets (Bld) [#/Vol] 344 10*3/uL Normal 150-450 [facility] Comment on above: Performed By: #### L 500.2500, L100.0500, L100.4500 ####[facility] [address] [place], [address] RBC (Bld) [#/Vol] 2.98 10*6/uL Low 4.6-6.2 [facility] Comment on above: Performed By: #### L 500.2500, L100.0500, L100.4500 ####[facility] [address] [place], [address] WBC (Bld) [#/Vol] 28.7 10*3/uL High 4.4-11.0 [facility] Comment on above: Performed By: #### L 500.2500, L100.0500, L100.4500 ####[facility] [address] [place], [address] Differential Commenton 06-08 SMEAR COMMENT COMMENT Normal [facility] Comment on above: Result Comment: DIMO RPHIC RBC POPULATION SEEN ON SLIDE REVIEW. Performed By: #### L 500.2500, L100.0500, L100.4500 ####[facility] [address] [place], [address] Modified Barium Swallow Stud yon 06-04-2024 Modified Barium Swallow Study Normal [facility] Basic Metabolic Profile (BMP )on 06-03-2024 BUN/CRE 26.5 RATIO High 01-31 [facility] Comment on above: Performed By: #### L 100.0100, L500.2500 ####[facility] [address] [place], [address] CA,Total 9.5 mg/dL Normal 8.5-10.1 [facility] Comment on above: Performed By: #### L 100.0100, L500.2500 ####[facility] [address] [place], [address] Chloride [Moles/Vol] 103 mmol/L Normal 98-107 [facility] Comment on above: Performed By: #### L 100.0100, L500.2500 ####[facility] [address] [place], [address] CO2 [Moles/Vol] 25.0 mmol/L Normal 21.0-32.0 [facility] Comment on above: Performed By: #### L 100.0100, L500.2500 ####[facility] [address] [place], [address] Creatinine [Mass/Vol] 1.70 mg/dL High 0.70-1.30 [facility] Comment on above: Result Comment: The validity of the calculated GFR GFRAA in patients over70 years has not been determined. Clinical correlation isessential. Performed By: #### L 100.0100, L500.2500 ####[facility] [address] [place], [address] ECRCL 40.43 ml/min Normal [facility] Comment on above: Performed By: #### L 100.0100, L500.2500 ####[facility] [address] [place], [address] EST GFR - AA 51 mL/min Low >60 [facility] Comment on above: Result Comment: Afri can [place]eg[place] GFR Calc Performed By: #### L 100.0100, L500.2500 ####[facility] [address] [place], [address] GAP 9 Normal 5-15 [facility] Comment on above: Performed By: #### L 100.0100, L500.2500 ####[facility] [address] [place], [address] GFR/1.73 sq M.predicted among non-blacks MDRD (S/P/Bld) [Vol rate/Area] 43 mL/min/{1.73_m2} Low >60 [facility] Comment on above: Result Comment: Non- GFR Calc Performed By: #### L 100.0100, L500.2500 ####[facility] [address] [place], [address] Glucose [Mass/Vol] 120 mg/dL High 74-106 [facility] Comment on above: Result Comment: Fast ing Glucose result from 100 to 125 mg/dLsuggests IMPAIRED HOMEOSTASIS per A.D.A. criteria. Performed By: #### L 100.0100, L500.2500 ####[facility] [address] [place], [address] Potassium [Moles/Vol] 4.6 mmol/L Normal 3.5-5.1 [facility] Comment on above: Performed By: #### L 100.0100, L500.2500 ####[facility] [address] [place], [address] Sodium [Moles/Vol] 137 mmol/L Normal 136-145 [facility] Comment on above: Performed By: #### L 100.0100, L500.2500 ####[facility] [address] [place], [address] Urea nitrogen [Mass/Vol] 45 mg/dL High 7-18 [facility] Comment on above: Performed By: #### L 100.0100, L500.2500 ####[facility] [address] [place], [address] CBC W/Diff, Automatedon 05-16 PATH REV Reviewed Normal [facility] Comment on above: Result Comment: Abso lute lymphocytosis suggestive of low grade lympho-proliferative disorder.Macrocytic anemia.Clinical correlation is necessary.Prashanth Machado M.D. 06/03/24 AMENDED REPORT 06/03/24 1423 PATH REV previously reported as: August Performed By: #### L 100.0100, L500.2500 ####[facility] [address] [place], [address] Consultation - Infectious Dx on 06-03-2024 Consultation - Infectious Dx Normal [facility] Consultation - Surgicalon Consultation - Surgical Normal [facility] HH, Hemoglobin AND Hematocri ton 06-03-2024 Hematocrit (Bld) [Volume fraction] 31.5 % Low 40-54 [facility] Comment on above: Performed By: #### L 100.0600 ####[facility] [address] [place], [address] Hemoglobin (Bld) [Mass/Vol] 10.5 g/dL Low 13.0-16.5 [facility] Comment on above: Performed By: #### L 100.0600 ####[facility] [address] [place], [address] Venous Duplex US, Unilateral on 06-03-2024 Venous Duplex US, Unilateral Normal [facility] Abdomen/Pelvis WITH Contrast on 06-02-2024 Abdomen/Pelvis WITH Contrast Normal [facility] COVID 19 AG RAPID (MEHUL Carey)on 06-02-2024 SARS-CoV-2 (COVID-19) RNA MYA+probe Ql (Unsp spec) Normal [facility] Comment on above: Performed By: #### M 100.505 ####[facility] [address] [place], [place], [address] Consultation - Urologyon Consultation - Urology Normal [facility] Respiratory Cultureon 2024 RESPC Normal [facility] Comment on above: Performed By: #### M 100.2400, M100.2000 ####[facility] [address] [place], [address] BRCon 06-01-2024 RC Normal [facility] Comment on above: Result Comment: [id number] BN RC TRANSFUSED 06/02/24 [id number] BN RC TRANSFUSED 06/02/24 1507 Performed By: #### B RC, BTS ####[facility] [address] [place], [address] HH, Hemoglobin AND Hematocri ton 06-01-2024 Hematocrit (Bld) [Volume fraction] 24.2 % Low 40-54 [facility] Comment on above: Performed By: #### L 100.0600 ####[facility] [address] [place], [address] Hemoglobin (Bld) [Mass/Vol] 7.7 g/dL Low 13.0-16.5 [facility] Comment on above: Performed By: #### L 100.0600 ####[facility] [address] [place], [address] MR/CON.PCM.GIon 06-01-2024 MR/CON.PCM.GI Normal [facility] Type AND Screenon 06-01-2024 Ab SCREEN GEL Negative Normal [facility] Comment on above: Order Comment: CMV N EG? NNumber of units to transfuse: 2Reason for Ordering Blood: AcuteAre the blood/blood products to be transfused? YIs the patient having/had surgery? YWhen ReadyNYFRACTURED HIP Performed By: #### B RC, BTS ####[facility] [address] [place], [address] CBC W/Diff, Automatedon 05-15 PATH REV Reviewed Normal [facility] Comment on above: Result Comment: Abso lute lymphocytosis suggestive of low grade lympho-proliferative disorder.Macrocytic anemia.Clinical correlation is necessary.Prashanth Machado M.D. 05/31/24 AMENDED REPORT 05/31/24 1608 PATH REV previously reported as: August Performed By: #### L 100.0100 ####[facility] [address] [place], [address] HH, Hemoglobin AND Hematocri ton 05-31-2024 Hematocrit (Bld) [Volume fraction] 25.3 % Low 40-54 [facility] Comment on above: Performed By: #### L 100.0600 ####[facility] [address] [place], [address] Hemoglobin (Bld) [Mass/Vol] 8.2 g/dL Low 13.0-16.5 [facility] Comment on above: Performed By: #### L 100.0600 ####[facility] [address] [place], [address] HIP, UNI W/ Pelvis 2-3 Views on 05-31-2024 HIP, UNI W/ Pelvis 2-3 Views Normal [facility] Stool Occult Blood iFOBon STOB Normal [facility] Comment on above: Performed By: #### M 100.7900 ####[facility] [address] [place], [address] Gram Stainon 05-30-2024 GS List Antibiotics [place] 48 Hours? none List Antibiotics to be Started? cefdinir, zithromax Acceptable Specimen? Yes (<25 Epithelial cells per/lpf) Gram Stain 2+ White Blood Cells 2+ Gram negative rods Rare Yeast Like Organisms Rare Epithelial cells Normal [facility] Comment on above: Performed By: #### M 100.2400, M100.2000 ####[facility] [address] [place], [address] HH, Hemoglobin AND Hematocri ton 05-30-2024 Hematocrit (Bld) [Volume fraction] 26.2 % Low 40-54 [facility] Comment on above: Performed By: #### L 100.0600 ####[facility] [address] [place], [address] Hemoglobin (Bld) [Mass/Vol] 8.5 g/dL Low 13.0-16.5 [facility] Comment on above: Performed By: #### L 100.0600 ####[facility] [address] [place], [address] RESPIRATORY PANEL MOLECULARo n 05-30-2024 RP PANEL Normal [facility] Comment on above: Performed By: #### M 100.638 ####[facility] [address] [place], [address] Basic Metabolic Profile (BMP )on 05-29-2024 BUN/CRE 21.9 RATIO High 10-20 [facility] Comment on above: Performed By: #### L 500.2500 ####[facility] [address] [place], [address] CA,Total 9.3 mg/dL Normal 8.5-10.1 [facility] Comment on above: Performed By: #### L 500.2500 ####[facility] [address] [place], [address] Chloride [Moles/Vol] 105 mmol/L Normal 98-107 [facility] Comment on above: Performed By: #### L 500.2500 ####[facility] [address] [place], [address] CO2 [Moles/Vol] 20.0 mmol/L Low 21.0-32.0 [facility] Comment on above: Performed By: #### L 500.2500 ####[facility] [address] [place], [address] Creatinine [Mass/Vol] 1.51 mg/dL High 0.70-1.30 [facility] Comment on above: Result Comment: The validity of the calculated GFR GFRAA in patients over70 years has not been determined. Clinical correlation isessential. Performed By: #### L 500.2500 ####[facility] [address] [place], [address] ECRCL 45.52 ml/min Normal [facility] Comment on above: Performed By: #### L 500.2500 ####[facility] [address] [place], [address] EST GFR - AA 59 mL/min Low >60 [facility] Comment on above: Result Comment: Afri can Senegalese GFR Calc Performed By: #### L 500.2500 ####[facility] [address] [place], [address] GAP 9 Normal 5-15 [facility] Comment on above: Performed By: #### L 500.2500 ####[facility] [address] [place], [address] GFR/1.73 sq M.predicted among non-blacks MDRD (S/P/Bld) [Vol rate/Area] 49 mL/min/{1.73_m2} Low >60 [facility] Comment on above: Result Comment: Non- GFR Calc Performed By: #### L 500.2500 ####[facility] [address] [place], [address] Glucose [Mass/Vol] 132 mg/dL High 74-106 [facility] Comment on above: Result Comment: Fast ing Glucose result greater than or equal to 126 mg/dLsuggests DIABETES MELLITUS per A.D.A. criteria. Performed By: #### L 500.2500 ####[facility] [address] [place], [address] Potassium [Moles/Vol] 4.3 mmol/L Normal 3.5-5.1 [facility] Comment on above: Performed By: #### L 500.2500 ####[facility] [address] [place], [address] Sodium [Moles/Vol] 134 mmol/L Low 136-145 [facility] Comment on above: Performed By: #### L 500.2500 ####[facility] [address] [place], [address] Urea nitrogen [Mass/Vol] 33 mg/dL High 7-18 [facility] Comment on above: Performed By: #### L 500.2500 ####[facility] [address] [place], [address] CBC W/Diff, Automatedon 05-15 Absolute Neut Normal 2.0-7.7 [facility] Comment on above: Result Comment: Canc elled via OM: Duplicate Order Performed By: #### L 100.0100 ####[facility] [address] [place], [address] HCT Normal 40-54 [facility] Comment on above: Result Comment: Canc elled via OM: Duplicate Order Performed By: #### L 100.0100 ####[facility] [address] [place], [address] HGB Normal 13.0-16.5 [facility] Comment on above: Result Comment: Canc elled via OM: Duplicate Order Performed By: #### L 100.0100 ####[facility] [address] [place], [address] MCH Normal 27.0-32.0 [facility] Comment on above: Result Comment: Canc elled via OM: Duplicate Order Performed By: #### L 100.0100 ####[facility] [address] [place], [address] MCHC Normal 32-36 [facility] Comment on above: Result Comment: Canc elled via OM: Duplicate Order Performed By: #### L 100.0100 ####[facility] [address] [place], [address] MCV Normal 80-94 [facility] Comment on above: Result Comment: Canc elled via OM: Duplicate Order Performed By: #### L 100.0100 ####[facility] [address] [place], [address] NEUT% Normal 47-70 [facility] Comment on above: Result Comment: Canc elled via OM: Duplicate Order Performed By: #### L 100.0100 ####[facility] [address] [place], [address] PLT Normal 150-450 [facility] Comment on above: Result Comment: Canc elled via OM: Duplicate Order Performed By: #### L 100.0100 ####[facility] [address] [place], [address] RBC Normal 4.6-6.2 [facility] Comment on above: Result Comment: Canc elled via OM: Duplicate Order Performed By: #### L 100.0100 ####[facility] [address] [place], [address] RDW CV Normal 11.6-14.6 [facility] Comment on above: Result Comment: Canc elled via OM: Duplicate Order Performed By: #### L 100.0100 ####[facility] [address] [place], [address] RDW SD Normal 35.1-43.9 [facility] Comment on above: Result Comment: Canc elled via OM: Duplicate Order Performed By: #### L 100.0100 ####[facility] [address] [place], [address] WBC Normal 4.4-11.0 [facility] Comment on above: Result Comment: Canc elled via OM: Duplicate Order Performed By: #### L 100.0100 ####[facility] [address] [place], [address] COVID 19 AG RAPID (MEHUL Carey)on 05-29-2024 SARS-CoV-2 (COVID-19) RNA MYA+probe Ql (Unsp spec) Normal [facility] Comment on above: Performed By: #### M 100.505 ####[facility] [address] [place], [address] Chest PA and Lateralon 05-29 Chest PA and Lateral Normal [facility] HH, Hemoglobin AND Hematocri ton 05-29-2024 Hematocrit (Bld) [Volume fraction] 25.2 % Low 40-54 [facility] Comment on above: Performed By: #### L 100.0600 ####[facility] [address] [place], [address] Hemoglobin (Bld) [Mass/Vol] 8.3 g/dL Low 13.0-16.5 [facility] Comment on above: Performed By: #### L 100.0600 ####[facility] [address] [place], [address] HIP, UNI W/ Pelvis 2-3 Views on 05-29-2024 HIP, UNI W/ Pelvis 2-3 Views Normal [facility] Iron+Iron Binding Capacityon 05-29-2024 Iron [Mass/Vol] 29 ug/dL Low 65-175 [facility] Comment on above: Performed By: #### L 503.6030 ####[facility] [address] [place], [address] IRON SATURATION 10.2 Low 15.0-55.0 [facility] Comment on above: Performed By: #### L 503.6030 ####[facility] [address] [place], [address] TIBC 283 ug/dL Normal 250-450 [facility] Comment on above: Performed By: #### L 503.6030 ####[facility] [address] [place], [address] HH, Hemoglobin AND Hematocri ton 05-28-2024 Hematocrit (Bld) [Volume fraction] 27.5 % Low 40-54 [facility] Comment on above: Performed By: #### L 100.0600 ####[facility] [address] [place], [address] Hemoglobin (Bld) [Mass/Vol] 8.9 g/dL Low 13.0-16.5 [facility] Comment on above: Performed By: #### L 100.0600 ####[facility] [address] [place], [address] L7000.0750on 05-28-2024 P ELASTASE,FECA 315 Normal >200 [facility] Comment on above: Result Comment: Resu lt Units: ug Elast./g Severe Pancreatic Insufficiency: <100 Moderate Pancreatic Insufficiency: 100 - 200 Normal: >200 Performed By: #### L 7000.0300, L7000.0750, L7000.0700 ####[facility] [address] [place], [address] Basic Metabolic Profile (BMP )on 05-27-2024 BUN/CRE 22.3 RATIO High 10-20 [facility] Comment on above: Performed By: #### L 100.0100, L500.2500 ####[facility] [address] [place], [address] CA,Total 8.7 mg/dL Normal 8.5-10.1 [facility] Comment on above: Performed By: #### L 100.0100, L500.2500 ####[facility] [address] [place], [address] Chloride [Moles/Vol] 108 mmol/L High 98-107 [facility] Comment on above: Performed By: #### L 100.0100, L500.2500 ####[facility] [address] [place], [address] CO2 [Moles/Vol] 24.0 mmol/L Normal 21.0-32.0 [facility] Comment on above: Performed By: #### L 100.0100, L500.2500 ####[facility] [address] [place], [address] Creatinine [Mass/Vol] 1.48 mg/dL High 0.70-1.30 [facility] Comment on above: Result Comment: The validity of the calculated GFR GFRAA in patients over70 years has not been determined. Clinical correlation isessential. Performed By: #### L 100.0100, L500.2500 ####[facility] [address] [place], [address] EST GFR - AA 60 mL/min Normal >60 [facility] Comment on above: Result Comment: Afri can Seneg[place]e GFR Calc Performed By: #### L 100.0100, L500.2500 ####[facility] [address] [place], [address] GAP 8 Normal 5-15 [facility] Comment on above: Performed By: #### L 100.0100, L500.2500 ####[facility] [address] [place], [address] GFR/1.73 sq M.predicted among non-blacks MDRD (S/P/Bld) [Vol rate/Area] 50 mL/min/{1.73_m2} Low >60 [facility] Comment on above: Result Comment: Non- GFR Calc Performed By: #### L 100.0100, L500.2500 ####[facility] [address] [place], [address] Glucose [Mass/Vol] 89 mg/dL Normal 74-106 [facility] Comment on above: Performed By: #### L 100.0100, L500.2500 ####[facility] [address] [place], [address] Potassium [Moles/Vol] 4.1 mmol/L Normal 3.5-5.1 [facility] Comment on above: Performed By: #### L 100.0100, L500.2500 ####[facility] [address] [place], [address] Sodium [Moles/Vol] 139 mmol/L Normal 136-145 [facility] Comment on above: Performed By: #### L 100.0100, L500.2500 ####[facility] [address] [place], [address] Urea nitrogen [Mass/Vol] 33 mg/dL High 7-18 [facility] Comment on above: Performed By: #### L 100.0100, L500.2500 ####[facility] [address] [place], [address] CBC W/Diff, Automatedon - PATH REV Reviewed Normal [facility] Comment on above: Result Comment: Abso lute lymphocytosis suggestive of low grade lympho-proliferative disorder.Macrocytic anemia.Clinical correlation is necessary.Prashanth Machado M.D. 05/27/24 AMENDED REPORT 05/27/24 1504 PATH REV previously reported as: August kathe Performed By: #### L 100.0100, L500.2500 ####[facility] [address] [place], [address] .GFRon 05-26-2024 Estimated Glomerular Filtration Rate 52 ml/min/1.73sqm Normal [facility] Comment on above: Result Comment: [...] D IFF, GFR, BMP, MORPH, CBC #### [place] [address] .Manual Diffon 05-26-2024 Basophil %, Manual 0.0 % Normal 0.0-2.5 [facility] Comment on above: Performed By: #### D IFF, GFR, BMP, MORPH, CBC #### [place] [address] Basophil, Abs Manual 0.0 10 3/mcL Normal 0.0-0.3 [facility] Comment on above: Performed By: #### D IFF, GFR, BMP, MORPH, CBC #### [place] [address] Eosinophil %, Manual 0.0 % Normal 0.0-6.0 [facility] Comment on above: Performed By: #### D IFF, GFR, BMP, MORPH, CBC #### [address] [address] Eosinophil, Abs Manual 0.0 10 3/mcL Normal 0.0-0.7 [facility] Comment on above: Performed By: #### D IFF, GFR, BMP, MORPH, CBC #### [address] [address] Lymphocyte %, Manual 90.0 % High 20.0-40.0 [facility] Comment on above: Performed By: #### D IFF, GFR, BMP, MORPH, CBC #### [address] [address] Lymphocyte, Abs Manual 15.9 10 3/mcL High 0.9-4.3 [facility] Comment on above: Performed By: #### D IFF, GFR, BMP, MORPH, CBC #### [address] [address] Monocyte %, Manual 0.0 % Low 2.0-13.0 [facility] Comment on above: Performed By: #### D IFF, GFR, BMP, MORPH, CBC #### [address] [address] Monocyte, Abs Manual 0.0 10 3/mcL Low 0.1-1.4 [facility] Comment on above: Performed By: #### D IFF, GFR, BMP, MORPH, CBC #### [address] [address] Neutrophil %, Manual 10.0 % Low 50.0-75.0 [facility] Comment on above: Performed By: #### D IFF, GFR, BMP, MORPH, CBC #### [address] [address] Neutrophil, Abs Manual 1.8 10 3/mcL Low 2.3-8.1 [facility] Comment on above: Performed By: #### D IFF, GFR, BMP, MORPH, CBC #### [address] [address] Nucleated RBC 0.0 /100 WBC Normal [facility] Comment on above: Performed By: #### D IFF, GFR, BMP, MORPH, CBC #### [address] [address] .Morphon 05-26-2024 Anisocytosis Ql (Bld) 2+ Normal [facility] Comment on above: Performed By: #### D IFF, GFR, BMP, MORPH, CBC #### [place] [address] Hypochrom 1+ Normal [facility] Comment on above: Performed By: #### D IFF, GFR, BMP, MORPH, CBC #### [place] [address] Macrocytosis 3+ Normal [facility] Comment on above: Performed By: #### D IFF, GFR, BMP, MORPH, CBC #### [place] [address] Ovalocytes 1+ [facility] Comment on above: Performed By: #### D IFF, GFR, BMP, MORPH, CBC #### [place] [address] Platelet Estimate Normal [facility] Comment on above: Performed By: #### D IFF, GFR, BMP, MORPH, CBC #### [place] [address] Poik 2+ [facility] Comment on above: Performed By: #### D IFF, GFR, BMP, MORPH, CBC #### [place] [address] BMPon 05-26-2024 BUN/Creatinine Ratio 20.1 ratio Normal 10.0-22.0 [facility] Comment on above: Performed By: #### D IFF, GFR, BMP, MORPH, CBC #### [place] [address] Calcium [Mass/Vol] 9.1 mg/dL Normal 8.7-10.4 [facility] Comment on above: Performed By: #### D IFF, GFR, BMP, MORPH, CBC #### [place] [address] Chloride [Moles/Vol] 108 mmol/L Normal 98-110 [facility] Comment on above: Performed By: #### D IFF, GFR, BMP, MORPH, CBC #### [address] [address] CO2 [Moles/Vol] 25 mmol/L Normal 22-32 [facility] Comment on above: Performed By: #### D IFF, GFR, BMP, MORPH, CBC #### [address] [address] Creatinine [Mass/Vol] 1.44 mg/dL High 0.60-1.40 [facility] Comment on above: Result Comment: Test ing performed on [employer] analyzer using enzymatic creatinine methodology. Performed By: #### D IFF, GFR, BMP, MORPH, CBC #### [address] [address] Electrolyte Balance 9.0 mEq/L Normal 4.0-15.0 [facility] Comment on above: Performed By: #### D IFF, GFR, BMP, MORPH, CBC #### [address] [address] Glucose [Mass/Vol] 97 mg/dL Normal 82-115 [facility] Comment on above: Performed By: #### D IFF, GFR, BMP, MORPH, CBC #### [address] [address] Potassium [Moles/Vol] 3.9 mmol/L Normal 3.5-5.0 [facility] Comment on above: Performed By: #### D IFF, GFR, BMP, MORPH, CBC #### [address] [address] Sodium [Moles/Vol] 142 mmol/L Normal 136-145 [facility] Comment on above: Performed By: #### D IFF, GFR, BMP, MORPH, CBC #### [address] [address] Urea nitrogen [Mass/Vol] 29.0 mg/dL High 8.0-22.0 [facility] Comment on above: Performed By: #### D IFF, GFR, BMP, MORPH, CBC #### [address] [address] CBCon 05-26-2024 Erythrocyte distribution width (RBC) [Ratio] 31.3 % High 11.5-15.5 [facility] Comment on above: Performed By: #### D IFF, GFR, BMP, MORPH, CBC #### [address] [address] Hematocrit (Bld) [Volume fraction] 24.3 % Low 40.0-52.0 [facility] Comment on above: Performed By: #### D IFF, GFR, BMP, MORPH, CBC #### [address] [address] Hgb 8.1 G/dL Low 13.0-17.5 [facility] Comment on above: Performed By: #### D IFF, GFR, BMP, MORPH, CBC #### [address] [address] MCH (RBC) [Entitic mass] 40.6 pg High 27.0-33.0 [facility] Comment on above: Performed By: #### D IFF, GFR, BMP, MORPH, CBC #### [address] [address] MCHC 33.4 G/dL Normal 32.0-36.0 [facility] Comment on above: Performed By: #### D IFF, GFR, BMP, MORPH, CBC #### [address] [address] MCV (RBC) [Entitic vol] 121.5 fL High 81.0-100.0 [facility] Comment on above: Performed By: #### D IFF, GFR, BMP, MORPH, CBC #### [address] [address] Platelet 188 10 3/mcL Normal 150-450 [facility] Comment on above: Performed By: #### D IFF, GFR, BMP, MORPH, CBC #### [address] [address] Platelet mean volume (Bld) [Entitic vol] 7.2 fL Normal 6.4-10.5 [facility] Comment on above: Performed By: #### D IFF, GFR, BMP, MORPH, CBC #### [facility] [address] [place] [address] RBC 2.00 10 6/mcL Low 4.50-6.00 [facility] Comment on above: Performed By: #### D IFF, GFR, BMP, MORPH, CBC #### [facility] [address] [place] [address] WBC 17.7 10 3/mcL High 4.5-10.8 [facility] Comment on above: Performed By: #### D IFF, GFR, BMP, MORPH, CBC #### [facility] [address] [place] [address] Calprotectin, Stoolon [address] 30 ug/g Normal 0-120 [facility] Comment on above: Order Comment: Test( s) [id number], Neutral; [id number], Totalwas developed and its performance characteristicsdetermined by [employer]. It has not been cleared or approvedby the Food and Drug Administration. Result Comment: Conc entration Interpretation Follow-Up< 5 - 50 ug/g Normal None>50 -120 ug/g Borderline Re-evaluate in 4-6 weeks >120 ug/g Abnormal Repeat as clinically indicatedPerformed at: [address] [id number] Director: Jorge Chatterjee PhD, Phone: [phone] at: [address] [id number] Director: Danny Shea MD, Phone: [phone] Performed By: #### L 7000.0300, L7000.0750, L7000.0700 ####[facility] [address] [place], [address] Fecal Fat, Qualitativeon FATS, NEUTRAL Normal Normal . [facility] Comment on above: Order Comment: Test( s) [id number], Neutral; [id number], Totalwas developed and its performance characteristicsdetermined by [employer]. It has not been cleared or approvedby the Food and Drug Administration. Result Comment: Norm al (<60 Droplets/HPF) Performed By: #### L 7000.0300, L7000.0750, L7000.0700 ####[facility] [address] [place], [place], [address] FATS, TOTAL Normal Normal . [facility] Comment on above: Order Comment: Test( s) [id number], Neutral; [id number]-Yqaz, Totalwas developed and its performance characteristicsdetermined by [employer]. It has not been cleared or approvedby the Food and Drug Administration. Result Comment: Norm al (<100 Droplets/HPF) Performed By: #### L 7000.0300, L7000.0750, L7000.0700 ####[facility] [address] [place], [place], [address] LABORATORYOrdered By: SYSTEM SYSTEM on 05-26-2024 Anisocytosis [...] 0 mEq/L AH ADM SS CO2 [Moles/Vol] 25 mmol/L Normal 22 - 32 mEq/L ADM SS Creatinine [Mass/Vol] 1.44 mg/dL High 0.60 - 1.40 mg/dL AH ADM SS Comment on above: Interpretive Data: T esting performed on [employer] analyzer using enzymatic creatinine methodology. Electrolyte Balance 9.0 mEq/L Normal 4.0 - 15 .0 mEq/L ADM SS Eosinophils (Bld) [#/Vol] 0.0 103/mcL Normal 0.0 - 0.7 10^3/mcL AH Workflow SS Eosinophils/100 WBC (Bld) 0.0 % Normal 0.0 - 6.0 % AH Workflow SS Erythrocyte distribution width (RBC) [Ratio] 31.3 % High 11.5 - 15.5 % AH Workflow SS Estimated Glomerular Filtration Rate 52 [...] 97 mg/dL Normal 82 - 115 mg/dL ADM SS Hematocrit (Bld) [Volume fraction] 24.3 % Low 40.0 - 52.0 % AH Workflow SS Hemoglobin (Bld) [Mass/Vol] 8.1 G/dL Low 13.0 - 17.5 G/dL AH Workflow SS Hypochromia Ql (Bld) 1+ *NA* (05/26/24 7:09 AM) Invalid Interpretation Code Workflow SS Lymphocytes (Bld) [#/Vol] 15.9 103/mcL High 0.9 - 4.3 10^3/mcL AH Workflow SS Lymphocytes/100 WBC (Bld) 90.0 % High 20.0 - 40.0 % AH Workflow SS Macrocytes Ql (Bld) 3+ *NA* (05/26/24 7:09 AM) Invalid Interpretation Code Workflow SS MCH (RBC) [Entitic mass] 40.6 [...] 7:09 AM) Invalid Interpretation Code Workflow SS Poikilocytosis LM Ql (Bld) 2+ [...] 29.0 mg/dL High 8.0 - 22.0 mg/dL AH ADM SS Urea nitrogen/Creatinine [Mass ratio] 20.1 ratio Normal 10.0 - 22.0 ratio AH ADM SS WBC (Bld) [#/Vol] 17.7 103/mcL High 4.5 - 10.8 10^3/mcL AH Workflow SS .GFRon 05-25-2024 Estimated Glomerular Filtration Rate 58 ml/min/1.73sqm Normal [facility] Comment on above: Result Comment: [...] D IFF, BMP, CBC, GFR, MORPH #### [place] [address] .Manual Diffon 05-25-2024 Basophil %, Manual 0.0 % Normal 0.0-2.5 [facility] Comment on above: Performed By: #### D IFF, BMP, CBC, GFR, MORPH #### [place] [address] Basophil, Abs Manual 0.0 10 3/mcL Normal 0.0-0.3 [facility] Comment on above: Performed By: #### D IFF, BMP, CBC, GFR, MORPH #### [place] [address] Eosinophil %, Manual 0.0 % Normal 0.0-6.0 [facility] Comment on above: Performed By: #### D IFF, BMP, CBC, GFR, MORPH #### [place] [address] Eosinophil, Abs Manual 0.0 10 3/mcL Normal 0.0-0.7 [facility] Comment on above: Performed By: #### D IFF, BMP, CBC, GFR, MORPH #### [place] [address] Lymphocyte %, Manual 92.0 % High 20.0-40.0 [facility] Comment on above: Performed By: #### D IFF, BMP, CBC, GFR, MORPH #### [place] [address] Lymphocyte, Abs Manual 18.3 10 3/mcL High 0.9-4.3 [facility] Comment on above: Performed By: #### D IFF, BMP, CBC, GFR, MORPH #### [place] [address] Monocyte %, Manual 0.0 % Low 2.0-13.0 [facility] Comment on above: Performed By: #### D IFF, BMP, CBC, GFR, MORPH #### [place] [address] Monocyte, Abs Manual 0.0 10 3/mcL Low 0.1-1.4 [facility] Comment on above: Performed By: #### D IFF, BMP, CBC, GFR, MORPH #### [place] [address] Neutrophil %, Manual 8.0 % Low 50.0-75.0 [facility] Comment on above: Performed By: #### D IFF, BMP, CBC, GFR, MORPH #### [place] [address] Neutrophil, Abs Manual 1.6 10 3/mcL Low 2.3-8.1 [facility] Comment on above: Performed By: #### D IFF, BMP, CBC, GFR, MORPH #### [place] [address] Nucleated RBC 0.0 /100 WBC [facility] Comment on above: Performed By: #### D IFF, BMP, CBC, GFR, MORPH #### [place] [address] .Morphon 05-25-2024 Anisocytosis Ql (Bld) 2+ Normal [facility] Comment on above: Performed By: #### D IFF, BMP, CBC, GFR, MORPH #### [place] [address] Hypochrom 1+ Normal [facility] Comment on above: Performed By: #### D IFF, BMP, CBC, GFR, MORPH #### [place] [address] Macrocytosis 3+ Normal [facility] Comment on above: Performed By: #### D IFF, BMP, CBC, GFR, MORPH #### [place] [address] Platelet Estimate Normal [facility] Comment on above: Performed By: #### D IFF, BMP, CBC, GFR, MORPH #### [address] [address] Poik 1+ [facility] Comment on above: Performed By: #### D IFF, BMP, CBC, GFR, MORPH #### [address] [address] Polychrom 1+ [facility] Comment on above: Performed By: #### D IFF, BMP, CBC, GFR, MORPH #### [address] [address] Smudge Cells 1+ [facility] Comment on above: Performed By: #### D IFF, BMP, CBC, GFR, MORPH #### [place] [id number] Stomatocytes 1+ [facility] Comment on above: Performed By: #### D IFF, BMP, CBC, GFR, MORPH #### [address] [address] Tear Cell 1+ [facility] MAIN Comment on above: Performed By: #### D IFF, BMP, CBC, GFR, MORPH #### [address] [address] Differential Comment See Below [facility] Comment on above: Result Comment: Diff erential performed on albumin smear Performed By: #### D IFF, BMP, CBC, GFR, MORPH #### [place] [id number] BMPon 05-25-2024 BUN/Creatinine Ratio 17.3 ratio Normal 10.0-22.0 [facility] Comment on above: Performed By: #### D IFF, BMP, CBC, GFR, MORPH #### [address] [address] Calcium [Mass/Vol] 9.1 mg/dL Normal 8.7-10.4 [facility] Comment on above: Performed By: #### D IFF, BMP, CBC, GFR, MORPH #### [place] [address] Chloride [Moles/Vol] 108 mmol/L Normal 98-110 [facility] Comment on above: Performed By: #### D IFF, BMP, CBC, GFR, MORPH #### [address] [address] CO2 [Moles/Vol] 23 mmol/L Normal 22-32 [facility] Comment on above: Performed By: #### D IFF, BMP, CBC, GFR, MORPH #### [address] [address] Creatinine [Mass/Vol] 1.33 mg/dL Normal 0.60-1.40 [facility] Comment on above: Result Comment: Test ing performed on [employer] analyzer using enzymatic creatinine methodology. Performed By: #### D IFF, BMP, CBC, GFR, MORPH #### [address] [address] Electrolyte Balance 9.0 mEq/L Normal 4.0-15.0 [facility] Comment on above: Performed By: #### D IFF, BMP, CBC, GFR, MORPH #### [address] [address] Glucose [Mass/Vol] 131 mg/dL High 82-115 [facility] Comment on above: Performed By: #### D IFF, BMP, CBC, GFR, MORPH #### [address] [address] Potassium [Moles/Vol] 4.4 mmol/L Normal 3.5-5.0 [facility] Comment on above: Performed By: #### D IFF, BMP, CBC, GFR, MORPH #### [address] [address] Sodium [Moles/Vol] 140 mmol/L Normal 136-145 [facility] Comment on above: Performed By: #### D IFF, BMP, CBC, GFR, MORPH #### [address] [address] Urea nitrogen [Mass/Vol] 23.0 mg/dL High 8.0-22.0 [facility] Comment on above: Performed By: #### D IFF, BMP, CBC, GFR, MORPH #### [address] [address] CBCon 05-25-2024 Erythrocyte distribution width (RBC) [Ratio] 16.2 % High 11.5-15.5 [facility] Comment on above: Performed By: #### D IFF, BMP, CBC, GFR, MORPH #### [address] [address] Hematocrit (Bld) [Volume fraction] 21.1 % Low 40.0-52.0 [facility] Comment on above: Performed By: #### D IFF, BMP, CBC, GFR, MORPH #### [address] [address] Hgb 7.0 G/dL Low 13.0-17.5 [facility] Comment on above: Performed By: #### D IFF, BMP, CBC, GFR, MORPH #### [address] [address] MCH (RBC) [Entitic mass] 44.7 pg High 27.0-33.0 [facility] Comment on above: Performed By: #### D IFF, BMP, CBC, GFR, MORPH #### [address] [address] MCHC 32.9 G/dL Normal 32.0-36.0 [facility] Comment on above: Performed By: #### D IFF, BMP, CBC, GFR, MORPH #### [address] [address] MCV (RBC) [Entitic vol] 135.8 fL High 81.0-100.0 [facility] Comment on above: Performed By: #### D IFF, BMP, CBC, GFR, MORPH #### [address] [address] Platelet 192 10 3/mcL Normal 150-450 [facility] Comment on above: Performed By: #### D IFF, BMP, CBC, GFR, MORPH #### [address] [address] Platelet mean volume (Bld) [Entitic vol] 7.2 fL Normal 6.4-10.5 [facility] Comment on above: Performed By: #### D IFF, BMP, CBC, GFR, MORPH #### [place] [id number] [place] [address] RBC 1.56 10 6/mcL Low 4.50-6.00 [facility] Comment on above: Performed By: #### D IFF, BMP, CBC, GFR, MORPH #### [place] [id number] [place] [address] WBC 19.9 10 3/mcL High 4.5-10.8 [facility] Comment on above: Performed By: #### D IFF, BMP, CBC, GFR, MORPH #### [place] [id number] [place] [address] HHon 05-25-2024 Hematocrit (Bld) [Volume fraction] 26.8 % Low 40.0-52.0 [facility] Comment on above: Performed By: #### D IFF, GFR, BMP, MORPH, CBC #### [place] [address] Hgb 8.7 G/dL Low 13.0-17.5 [facility] Comment on above: Performed By: #### D IFF, GFR, BMP, MORPH, CBC #### [place] [address] LABORATORYOrdered By: SYSTEM SYSTEM on 05-25-2024 Hematocrit [...] 4 mg/dL AH ADM SS Chloride [Moles/Vol] 108 mmol/L Normal 98 - 11 0 mEq/L ADM SS CO2 [Moles/Vol] 23 mmol/L Normal 22 - 32 mEq/L ADM SS Creatinine [Mass/Vol] 1.33 mg/dL Normal 0.60 - 1.40 mg/dL ADM SS Comment on above: Interpretive Data: T esting performed on [employer] analyzer using enzymatic creatinine methodology. Dacrocytes LM Ql (Bld) 1+ *NA* (05/25/24 6:48 AM) Invalid Interpretation Code Workflow SS Differential Comment See Below 13 [...] 16.2 % High 11.5 - 15.5 % Workflow SS Estimated Glomerular Filtration Rate 58 [...] 21.1 % Low 40.0 - 52.0 % Workflow SS Hemoglobin (Bld) [Mass/Vol] 7.0 G/dL Low 13.0 - 17.5 G/dL Workflow SS Hypochromia Ql (Bld) 1+ *NA* (05/25/24 6:48 AM) Invalid Interpretation Code AH Workflow SS Lymphocytes (Bld) [#/Vol] 18.3 103/mcL High 0.9 - 4.3 10^3/mcL AH Workflow SS Lymphocytes/100 WBC (Bld) 92.0 % High 20.0 - 40.0 % AH Workflow SS Macrocytes Ql (Bld) 3+ *NA* (05/25/24 6:48 AM) Invalid Interpretation Code AH Workflow SS MCH (RBC) [Entitic mass] 44.7 [...] mEq/L AH ADM SS RBC (Bld) [#/Vol] 1.56 106/mcL Low 4.50 - 6.0 0 10^6/mcL AH Workflow SS Smudge cells LM Ql (Bld) 1+ *NA* (05/25/24 6:48 AM) Invalid Interpretation Code AH Workflow SS Sodium [Moles/Vol] 140 mmol/L Normal 136 - 145 mEq/L AH ADM SS Stomatocytes LM Ql (Bld) 1+ *NA* (05/25/24 6:48 AM) Invalid Interpretation Code AH Workflow SS Urea nitrogen [Mass/Vol] 23.0 mg/dL High 8.0 - 22.0 mg/dL AH ADM SS Urea nitrogen/Creatinine [Mass ratio] 17.3 ratio Normal 10.0 - 22.0 ratio AH ADM SS WBC (Bld) [#/Vol] 19.9 103/mcL High 4.5 - 10.8 10^3/mcL AH Workflow SS LABORATORYOrdered By: Brittani Saez on 05-25-2024 RBC Product Ready RBC Ready for Pickup (05/25/24 9:12 AM) Normal BB Manual SS RBC (Product)on 05-25-2024 RBC Product Ready RBC Ready for Pickup Normal [facility] Comment on above: Performed By: #### D IFF, GFR, BMP, MORPH, CBC #### [address] [address] .GFRon 05-24-2024 Estimated Glomerular Filtration Rate 56 ml/min/1.73sqm Normal [facility] Comment on above: Result Comment: [...] D IFF, BMP, CBC, GFR, MORPH #### [address] [address] .Manual Diffon 05-24-2024 Basophil %, Manual 0.0 % Normal 0.0-2.5 [facility] Comment on above: Performed By: #### D IFF, GFR, BMP, MORPH, CBC #### [address] [address] Basophil, Abs Manual 0.0 10 3/mcL Normal 0.0-0.3 [facility] Comment on above: Performed By: #### D IFF, GFR, BMP, MORPH, CBC #### [address] [address] Eosinophil %, Manual 0.0 % Normal 0.0-6.0 [facility] Comment on above: Performed By: #### D IFF, GFR, BMP, MORPH, CBC #### [address] [address] Eosinophil, Abs Manual 0.0 10 3/mcL Normal 0.0-0.7 [facility] Comment on above: Performed By: #### D IFF, GFR, BMP, MORPH, CBC #### [address] [address] Lymphocyte %, Manual 90.0 % High 20.0-40.0 [facility] Comment on above: Performed By: #### D IFF, GFR, BMP, MORPH, CBC #### [address] [address] Lymphocyte, Abs Manual 21.7 10 3/mcL High 0.9-4.3 [facility] Comment on above: Performed By: #### D IFF, GFR, BMP, MORPH, CBC #### [address] [address] Monocyte %, Manual 2.0 % Normal 2.0-13.0 [facility] Comment on above: Performed By: #### D IFF, GFR, BMP, MORPH, CBC #### [address] [address] Monocyte, Abs Manual 0.5 10 3/mcL Normal 0.1-1.4 [facility] Comment on above: Performed By: #### D IFF, GFR, BMP, MORPH, CBC #### [address] [address] Neutrophil %, Manual 8.0 % Low 50.0-75.0 [facility] Comment on above: Performed By: #### D IFF, GFR, BMP, MORPH, CBC #### [place] [address] Neutrophil, Abs Manual 1.9 10 3/mcL Low 2.3-8.1 [facility] Comment on above: Performed By: #### D IFF, GFR, BMP, MORPH, CBC #### [place] [address] Nucleated RBC 0.0 /100 WBC Normal [facility] Comment on above: Performed By: #### D IFF, GFR, BMP, MORPH, CBC #### [place] [address] .Morphon 05-24-2024 Anisocytosis Ql (Bld) 1+ Normal [facility] Comment on above: Performed By: #### D IFF, GFR, BMP, MORPH, CBC #### [place] [address] Macrocytosis 3+ Normal [facility] Comment on above: Performed By: #### D IFF, GFR, BMP, MORPH, CBC #### [place] [address] Platelet Estimate Normal Normal [facility] Comment on above: Performed By: #### D IFF, GFR, BMP, MORPH, CBC #### [place] [address] Polychrom 1+ Normal [facility] Comment on above: Performed By: #### D IFF, GFR, BMP, MORPH, CBC #### [place] [address] Smudge Cells 2+ Normal [facility] Comment on above: Performed By: #### D IFF, GFR, BMP, MORPH, CBC #### [place] [address] Differential Comment See Below [facility]IN Comment on above: Result Comment: Diff erential performed on albumin smear Performed By: #### D IFF, GFR, BMP, MORPH, CBC #### [address] [address] BMPon 05-24-2024 BUN/Creatinine Ratio 17.0 ratio Normal 10.0-22.0 [facility] Comment on above: Performed By: #### D IFF, BMP, CBC, GFR, MORPH #### [address] [address] Calcium [Mass/Vol] 8.9 mg/dL Normal 8.7-10.4 [facility] Comment on above: Performed By: #### D IFF, BMP, CBC, GFR, MORPH #### [address] [address] Chloride [Moles/Vol] 108 mmol/L Normal 98-110 [facility] Comment on above: Performed By: #### D IFF, BMP, CBC, GFR, MORPH #### [address] [address] CO2 [Moles/Vol] 20 mmol/L Low 22-32 [facility] Comment on above: Performed By: #### D IFF, BMP, CBC, GFR, MORPH #### [address] [address] Creatinine [Mass/Vol] 1.35 mg/dL Normal 0.60-1.40 [facility] Comment on above: Result Comment: Test ing performed on [employer] analyzer using enzymatic creatinine methodology. Performed By: #### D IFF, BMP, CBC, GFR, MORPH #### [address] [address] Electrolyte Balance 11.0 mEq/L Normal 4.0-15.0 [facility] Comment on above: Performed By: #### D IFF, BMP, CBC, GFR, MORPH #### [address] [address] Glucose [Mass/Vol] 111 mg/dL Normal 82-115 [facility] Comment on above: Performed By: #### D IFF, BMP, CBC, GFR, MORPH #### [address] [address] Potassium [Moles/Vol] 4.4 mmol/L Normal 3.5-5.0 [facility] Comment on above: Performed By: #### D IFF, BMP, CBC, GFR, MORPH #### [place] [address] Sodium [Moles/Vol] 139 mmol/L Normal 136-145 [facility] Comment on above: Performed By: #### D IFF, BMP, CBC, GFR, MORPH #### [place] [address] Urea nitrogen [Mass/Vol] 23.0 mg/dL High 8.0-22.0 [facility] Comment on above: Performed By: #### D IFF, BMP, CBC, GFR, MORPH #### [place] [address] CBCon 05-24-2024 Erythrocyte distribution width (RBC) [Ratio] 16.6 % High 11.5-15.5 [facility] Comment on above: Performed By: #### D IFF, GFR, BMP, MORPH, CBC #### [place] [address] Hematocrit (Bld) [Volume fraction] 25.9 % Low 40.0-52.0 [facility] Comment on above: Performed By: #### D IFF, GFR, BMP, MORPH, CBC #### [place] [address] Hgb 8.8 G/dL Low 13.0-17.5 [facility] Comment on above: Performed By: #### D IFF, GFR, BMP, MORPH, CBC #### [place] [address] MCH (RBC) [Entitic mass] 45.6 pg High 27.0-33.0 [facility] Comment on above: Performed By: #### D IFF, GFR, BMP, MORPH, CBC #### [place] [address] MCHC 34.0 G/dL Normal 32.0-36.0 [facility] Comment on above: Performed By: #### D IFF, GFR, BMP, MORPH, CBC #### [place] [address] MCV (RBC) [Entitic vol] 134.2 fL High 81.0-100.0 [facility] Comment on above: Performed By: #### D IFF, GFR, BMP, MORPH, CBC #### [address] [address] Platelet 202 10 3/mcL Normal 150-450 [facility] Comment on above: Performed By: #### D IFF, GFR, BMP, MORPH, CBC #### [place] [address] Platelet mean volume (Bld) [Entitic vol] 7.3 fL Normal 6.4-10.5 [facility] Comment on above: Performed By: #### D IFF, GFR, BMP, MORPH, CBC #### [place] [address] RBC 1.93 10 6/mcL Low 4.50-6.00 [facility] Comment on above: Performed By: #### D IFF, GFR, BMP, MORPH, CBC #### [place] [id number] WBC 24.1 10 3/mcL High 4.5-10.8 [facility] Comment on above: Performed By: #### D IFF, GFR, BMP, MORPH, CBC #### [address] [address] CMPon 05-24-2024 Albumin Level 3.2 G/dL Normal 3.2-4.8 [facility] Comment on above: Performed By: #### D IFF, GFR, BMP, MORPH, CBC #### [place] [id number] Albumin/Globulin [Mass ratio] 1.4 {ratio} Normal 0.9-1.6 [facility] Comment on above: Performed By: #### D IFF, GFR, BMP, MORPH, CBC #### [address] [address] ALP [Catalytic activity/Vol] 62 U/L Normal 38-126 [facility] Comment on above: Performed By: #### D IFF, GFR, BMP, MORPH, CBC #### [address] [address] ALT [Catalytic activity/Vol] 13 U/L Normal 12-55 [facility] Comment on above: Performed By: #### D IFF, GFR, BMP, MORPH, CBC #### [address] [address] AST [Catalytic activity/Vol] 18 U/L Normal 8-34 [facility] Comment on above: Performed By: #### D IFF, GFR, BMP, MORPH, CBC #### [address] [address] Bili Total 0.90 mg/dL Normal 0.20-1.20 [facility] Comment on above: Result Comment: Use of this assay is not recommended for patients undergoing treatment with eltrombopag due to the potential for falsely elevated results. Performed By: #### D IFF, GFR, BMP, MORPH, CBC #### [place] [id number] BUN/Creatinine Ratio 17.4 ratio Normal 10.0-22.0 [facility] Comment on above: Performed By: #### D IFF, GFR, BMP, MORPH, CBC #### [address] [address] Calcium [Mass/Vol] 9.1 mg/dL Normal 8.7-10.4 [facility] Comment on above: Performed By: #### D IFF, GFR, BMP, MORPH, CBC #### [address] [address] Chloride [Moles/Vol] 107 mmol/L Normal 98-110 [facility] Comment on above: Performed By: #### D IFF, GFR, BMP, MORPH, CBC #### [address] [address] CO2 [Moles/Vol] 21 mmol/L Low 22-32 [facility] Comment on above: Performed By: #### D IFF, GFR, BMP, MORPH, CBC #### [address] [address] Creatinine [Mass/Vol] 1.32 mg/dL Normal 0.60-1.40 [facility] Comment on above: Result Comment: Test ing performed on [employer] analyzer using enzymatic creatinine methodology. Performed By: #### D IFF, GFR, BMP, MORPH, CBC #### [address] [address] Electrolyte Balance 9.0 mEq/L Normal 4.0-15.0 [facility] Comment on above: Performed By: #### D IFF, GFR, BMP, MORPH, CBC #### [address] [address] Globulin 2.3 G/dL Normal 1.5-3.8 [facility] Comment on above: Performed By: #### D IFF, GFR, BMP, MORPH, CBC #### [address] [address] Glucose [Mass/Vol] 111 mg/dL Normal 82-115 [facility] Comment on above: Performed By: #### D IFF, GFR, BMP, MORPH, CBC #### [address] [address] Potassium [Moles/Vol] 4.4 mmol/L Normal 3.5-5.0 [facility] Comment on above: Performed By: #### D IFF, GFR, BMP, MORPH, CBC #### [address] [address] Sodium [Moles/Vol] 137 mmol/L Normal 136-145 [facility] Comment on above: Performed By: #### D IFF, GFR, BMP, MORPH, CBC #### [address] [address] Total Protein 5.5 G/dL Low 5.7-8.2 [facility] Comment on above: Performed By: #### D IFF, GFR, BMP, MORPH, CBC #### [address] [address] Urea nitrogen [Mass/Vol] 23.0 mg/dL High 8.0-22.0 [facility] Comment on above: Performed By: #### D IFF, GFR, BMP, MORPH, CBC #### [address] [address] [address] PELVIS W/O CONTRASTon CT PELVIS W/O CONTRAST ADDENDUM ADDENDUM: Report should say intertrochanteric rather than intra-articular. Interpreted by: Olivier Chicas DO Preliminary Report By: Olivier Chicas DO Electronically signed By Olivier hCicas DO Dictated Date: 05/24/2024 2:26:28 PM Prelim [...] calcifications, particularly at the left SFA and PEOPLE MANAGER. Large amount of rectal stool with distension [...] calcifications, particularly at the left SFA and PEOPLE MANAGER. Correlate with any history of claudication. 6. Small fat-containing left inguinal hernia. Interpreted by: Olivier Chicas DO Preliminary Report By: Olivier Chicas DO Electronically signed By Olivier Chicas DO Dictated Date: 05/23/2024 11:25:33 AM Prelim Date: 05/23/2024 11:30:00 AM Sign Date: 05/23/2024 11:30:00 AM Ordering Provider: VILMA MARTINEZ [facility] MAIN LABORATORYOrdered By: SYSTEM SYSTEM on [...] 0.0 - 2.5 % AH Workflow SS Bilirubin [Mass/Vol] 0.90 mg/dL Normal [...] 20 mmol/L Low 22 - 32 mEq/L ADM SS Creatinine [Mass/Vol] 1.32 mg/dL Normal 0.60 - 1.40 mg/dL ADM SS Comment on above: Interpretive Data: T esting performed on [employer] CH analyzer using enzymatic creatinine methodology. Creatinine [Mass/Vol] 1.35 mg/dL Normal 0.60 - 1.40 mg/dL ADM SS Comment on above: Interpretive Data: T esting performed on [employer] CH analyzer using enzymatic creatinine methodology. Differential Comment See Below 14 *NA* (05/24/24 6:59 AM) Invalid Interpretation Code Workflow SS Comment [...] Filtration Rate 56 ml/min/1.73sqm Invalid Interpretation Code ADM SS Comment on above: Interpretive Data: Stages [...] 2.3 G/dL Normal 1.5 - 3.8 G/dL ADM SS Lymphocytes (Bld) [#/Vol] 21.7 103/mcL High 0.9 - 4.3 10^3/mcL AH Workflow SS Lymphocytes/100 WBC (Bld) 90.0 % High 20.0 - 40.0 % AH Workflow SS Macrocytes Ql (Bld) 3+ *NA* (05/24/24 6:59 AM) Invalid Interpretation Code AH Workflow SS MCH (RBC) [Entitic mass] 45.6 pg High 27.0 - 33.0 pg AH Workflow SS MCHC 34.0 G/dL Normal 32.0 - 36.0 G/dL AH Workflow SS MCV (RBC) [Entitic vol] 134.2 fL High 81.0 - 100.0 fL AH Workflow SS Monocytes (Bld) [#/Vol] 0.5 103/mcL [...] 202 103/mcL Normal 150 - 450 10^3/mcL AH Workflow SS Platelets LM Ql (Bld) Normal *NA* (05/24/24 6:59 AM) Invalid Interpretation Code AH Workflow SS Polychromasia LM Ql (Bld) 1+ *NA* (05/24/24 6:59 AM) Invalid Interpretation Code AH Workflow SS Protein [Mass/Vol] 5.5 G/dL Low 5.7 - 8.2 G/dL AH ADM SS RBC (Bld) [#/Vol] 1.93 106/mcL Low 4.50 - 6.0 0 10^6/mcL AH Workflow SS Smudge cells LM Ql (Bld) 2+ *NA* (05/24/24 6:59 AM) Invalid Interpretation Code AH Workflow SS Sodium [Moles/Vol] 137 mmol/L Normal 136 - 145 mEq/L AH ADM SS Sodium [Moles/Vol] 139 mmol/L Normal 136 - 145 mEq/L AH ADM SS Urea nitrogen/Creatinine [Mass ratio] 17.4 ratio Normal 10.0 - 22.0 ratio AH ADM SS Urea nitrogen/Creatinine [Mass ratio] 17.0 [...] Sensitivity Troponin I 9 ng/L Normal 0-54 [facility] Comment on above: Result Comment: High Sensitive Troponin I Reference Ranges: Female: 0-34 ng/L Male: 0-54 ng/L Testing performed on Bion[employer] analyzer using direct chemiluminescent technology. Performed By: #### D IFF, GFR, BMP, MORPH, CBC #### [place] [address] XR FLUORO 1-2 HRS TECH TIMEo n [...] 05/24/2024 2:25:34 PM Ordering Provider: MATT Iqbal [facility] XR HIP RIGHT W/PELVIS 4 [...] AM Ordering Provider: VILMA MARTINEZ [facility] .GFRon 05-23-2024 Estimated Glomerular Filtration Rate 49 ml/min/1.73sqm [facility] Comment on above: Result Comment: Stages of [...] D IFF, BMP, CBC, GFR, MORPH #### [place] [address] Estimated Glomerular Filtration Rate 48 ml/min/1.73sqm Normal [facility] Comment on above: Result Comment: [...] D IFF, GFR, BMP, MORPH, CBC #### [place] [address] .MDWon 05-23-2024 Monocyte Distribution Width See Comment Normal 0.00-20.00 [facility] Comment on above: Result Comment: The MDW result could not be reported due to a sample abnormality that prevents the MDW from being calculated. Performed By: #### D IFF, GFR, BMP, MORPH, CBC #### [place] [address] .Manual Diffon 05-23-2024 Atypical Lymphs 20.0 % High 0.0-5.0 [facility] Comment on above: Performed By: #### D IFF, BMP, CBC, GFR, MORPH #### [place] [address] Basophil %, Manual 0.0 % Normal 0.0-2.5 [facility] Comment on above: Performed By: #### D IFF, BMP, CBC, GFR, MORPH #### [place] [address] Basophil, Abs Manual 0.0 10 3/mcL Normal 0.0-0.3 [facility] Comment on above: Performed By: #### D IFF, BMP, CBC, GFR, MORPH #### [address] [address] Eosinophil %, Manual 0.0 % Normal 0.0-6.0 [facility] Comment on above: Performed By: #### D IFF, BMP, CBC, GFR, MORPH #### [facility] [address] [place] [address] Eosinophil, Abs Manual 0.0 10 3/mcL Normal 0.0-0.7 [facility] Comment on above: Performed By: #### D IFF, BMP, CBC, GFR, MORPH #### [address] [address] Lymphocyte %, Manual 73.0 % High 20.0-40.0 [facility] Comment on above: Performed By: #### D IFF, BMP, CBC, GFR, MORPH #### [address] [address] Lymphocyte, Abs Manual 21.7 10 3/mcL High 0.9-4.3 [facility] Comment on above: Performed By: #### D IFF, BMP, CBC, GFR, MORPH #### [address] [address] Monocyte %, Manual 1.0 % Low 2.0-13.0 [facility] Comment on above: Performed By: #### D IFF, BMP, CBC, GFR, MORPH #### [address] [address] Monocyte, Abs Manual 0.3 10 3/mcL Normal 0.1-1.4 [facility] Comment on above: Performed By: #### D IFF, BMP, CBC, GFR, MORPH #### [address] [address] Neutrophil %, Manual 6.0 % Low 50.0-75.0 [facility] Comment on above: Performed By: #### D IFF, BMP, CBC, GFR, MORPH #### [address] [address] Neutrophil, Abs Manual 1.8 10 3/mcL Low 2.3-8.1 [facility] Comment on above: Performed By: #### D IFF, BMP, CBC, GFR, MORPH #### [address] [address] Nucleated RBC 0.0 /100 WBC Normal [facility] Comment on above: Performed By: #### D IFF, BMP, CBC, GFR, MORPH #### [address] [address] Basophil %, Manual 0.0 % Normal 0.0-2.5 [facility] Comment on above: Performed By: #### D IFF, GFR, BMP, MORPH, CBC #### [address] [address] Basophil, Abs Manual 0.0 10 3/mcL Normal 0.0-0.3 [facility] Comment on above: Performed By: #### D IFF, GFR, BMP, MORPH, CBC #### [address] [address] Eosinophil %, Manual 0.0 % Normal 0.0-6.0 [facility] Comment on above: Performed By: #### D IFF, GFR, BMP, MORPH, CBC #### [address] [address] Eosinophil, Abs Manual 0.0 10 3/mcL Normal 0.0-0.7 [facility] Comment on above: Performed By: #### D IFF, GFR, BMP, MORPH, CBC #### [address] [address] Lymphocyte %, Manual 90.0 % High 20.0-40.0 [facility] Comment on above: Performed By: #### D IFF, GFR, BMP, MORPH, CBC #### [address] [address] Lymphocyte, Abs Manual 31.7 10 3/mcL High 0.9-4.3 [facility] Comment on above: Performed By: #### D IFF, GFR, BMP, MORPH, CBC #### [address] [address] Monocyte %, Manual 0.0 % Low 2.0-13.0 [facility] Comment on above: Performed By: #### D IFF, GFR, BMP, MORPH, CBC #### [place] [address] Monocyte, Abs Manual 0.0 10 3/mcL Low 0.1-1.4 [facility] Comment on above: Performed By: #### D IFF, GFR, BMP, MORPH, CBC #### [place] [address] Neutrophil %, Manual 10.0 % Low 50.0-75.0 [facility] Comment on above: Performed By: #### D IFF, GFR, BMP, MORPH, CBC #### [place] [address] Neutrophil, Abs Manual 3.5 10 3/mcL Normal 2.3-8.1 [facility] Comment on above: Performed By: #### D IFF, GFR, BMP, MORPH, CBC #### [place] [address] Nucleated RBC 0.0 /100 WBC Normal [facility] Comment on above: Performed By: #### D IFF, GFR, BMP, MORPH, CBC #### [place] [address] .Manual DiffOrdered By: SYST EM SYSTEM on 05-23-2024 Aytpical Lymph, Abs Manual 5.9 103/mcL High 0.0-0.5 AH Workflow SS Comment on above: Performed By: #### D IFF, BMP, CBC, GFR, MORPH #### [place] [address] .Morphon 05-23-2024 Anisocytosis Ql (Bld) 1+ Normal [facility] Comment on above: Performed By: #### D IFF, BMP, CBC, GFR, MORPH #### [place] [address] Macrocytosis 3+ Normal [facility] Comment on above: Performed By: #### D IFF, BMP, CBC, GFR, MORPH #### [place] [address] Ovalocytes 1+ Normal [facility] Comment on above: Performed By: #### D IFF, BMP, CBC, GFR, MORPH #### [address] [address] Platelet Estimate Normal [facility] Comment on above: Performed By: #### D IFF, BMP, CBC, GFR, MORPH #### [address] [address] Poik 1+ [facility] Comment on above: Performed By: #### D IFF, BMP, CBC, GFR, MORPH #### [place] [id number] Polychrom 1+ [facility] Comment on above: Performed By: #### D IFF, BMP, CBC, GFR, MORPH #### [place] [address] Tear Cell 1+ [facility] Comment on above: Performed By: #### D IFF, BMP, CBC, GFR, MORPH #### [place] [address] Anisocytosis Ql (Bld) 1+ [facility] Comment on above: Performed By: #### D IFF, GFR, BMP, MORPH, CBC #### [place] [address] Differential Comment See Below [facility] Comment on above: Result Comment: Diff erential performed on albumin smear Performed By: #### D IFF, GFR, BMP, MORPH, CBC #### [place] [id number] Macrocytosis 3+ [facility] Comment on above: Performed By: #### D IFF, GFR, BMP, MORPH, CBC #### [place] [address] Ovalocytes 1+ [facility] Comment on above: Performed By: #### D IFF, GFR, BMP, MORPH, CBC #### [place] [address] Platelet Estimate Normal [facility] Comment on above: Performed By: #### D IFF, GFR, BMP, MORPH, CBC #### [place] [address] Poik 2+ [facility] Comment on above: Performed By: #### D IFF, GFR, BMP, MORPH, CBC #### [address] [address] Stomatocytes 2+ [facility] Comment on above: Performed By: #### D IFF, GFR, BMP, MORPH, CBC #### [address] [address] ABO/Rh (Gel)on 05-23-2024 ABO/Rh Interp Positive Invalid Interpretation Code [facility] Comment on above: Performed By: #### D IFF, GFR, BMP, MORPH, CBC #### [address] [address] ABS (Gel)on 05-23-2024 ABSC Interp (Gel) Negative [facility] Comment on above: Performed By: #### D IFF, GFR, BMP, MORPH, CBC #### [place] [id number] Jose 05-23-2024 Ethanol Level <10.0 [facility] Comment on above: Performed By: #### D IFF, GFR, BMP, MORPH, CBC #### [address] [address] BMPon 05-23-2024 BUN/Creatinine Ratio 21.9 ratio Normal 10.0-22.0 [facility] Comment on above: Performed By: #### D IFF, BMP, CBC, GFR, MORPH #### [address] [address] Calcium [Mass/Vol] 9.8 mg/dL Normal 8.7-10.4 [facility] Comment on above: Performed By: #### D IFF, BMP, CBC, GFR, MORPH #### [address] [address] Chloride [Moles/Vol] 107 mmol/L Normal 98-110 [facility] Comment on above: Performed By: #### D IFF, BMP, CBC, GFR, MORPH #### [address] [address] CO2 [Moles/Vol] 21 mmol/L Low 22-32 [facility] Comment on above: Performed By: #### D IFF, BMP, CBC, GFR, MORPH #### [address] [address] Creatinine [Mass/Vol] 1.51 mg/dL High 0.60-1.40 [facility] Comment on above: Result Comment: Test ing performed on [employer] analyzer using enzymatic creatinine methodology. Performed By: #### D IFF, BMP, CBC, GFR, MORPH #### [address] [address] Electrolyte Balance 10.0 mEq/L Normal 4.0-15.0 [facility] Comment on above: Performed By: #### D IFF, BMP, CBC, GFR, MORPH #### [address] [address] Glucose [Mass/Vol] 99 mg/dL Normal 82-115 [facility] Comment on above: Performed By: #### D IFF, BMP, CBC, GFR, MORPH #### [address] [address] Potassium [Moles/Vol] 4.3 mmol/L Normal 3.5-5.0 [facility] Comment on above: Performed By: #### D IFF, BMP, CBC, GFR, MORPH #### [address] [address] Sodium [Moles/Vol] 138 mmol/L Normal 136-145 [facility] Comment on above: Performed By: #### D IFF, BMP, CBC, GFR, MORPH #### [address] [address] Urea nitrogen [Mass/Vol] 33.0 mg/dL High 8.0-22.0 [facility] Comment on above: Performed By: #### D IFF, BMP, CBC, GFR, MORPH #### [address] [address] BUN/Creatinine Ratio 22.6 ratio High 10.0-22.0 [facility] Comment on above: Performed By: #### D IFF, GFR, BMP, MORPH, CBC #### [address] [address] Calcium [Mass/Vol] 9.6 mg/dL Normal 8.7-10.4 [facility] Comment on above: Performed By: #### D IFF, GFR, BMP, MORPH, CBC #### [address] [address] Chloride [Moles/Vol] 105 mmol/L Normal 98-110 [facility] Comment on above: Performed By: #### D IFF, GFR, BMP, MORPH, CBC #### [address] [address] CO2 [Moles/Vol] 22 mmol/L Normal 22-32 [facility] Comment on above: Performed By: #### D IFF, GFR, BMP, MORPH, CBC #### [address] [address] Creatinine [Mass/Vol] 1.55 mg/dL High 0.60-1.40 [facility] Comment on above: Result Comment: Test ing performed on [employer] analyzer using enzymatic creatinine methodology. Performed By: #### D IFF, GFR, BMP, MORPH, CBC #### [address] [address] Electrolyte Balance 12.0 mEq/L Normal 4.0-15.0 [facility] Comment on above: Performed By: #### D IFF, GFR, BMP, MORPH, CBC #### [address] [address] Glucose [Mass/Vol] 96 mg/dL Normal 82-115 [facility] Comment on above: Performed By: #### D IFF, GFR, BMP, MORPH, CBC #### [address] [address] Potassium [Moles/Vol] 4.4 mmol/L Normal 3.5-5.0 [facility] Comment on above: Performed By: #### D IFF, GFR, BMP, MORPH, CBC #### [address] [address] Sodium [Moles/Vol] 139 mmol/L Normal 136-145 [facility] Comment on above: Performed By: #### D IFF, GFR, BMP, MORPH, CBC #### [place] [address] Urea nitrogen [Mass/Vol] 35.0 mg/dL High 8.0-22.0 [facility] Comment on above: Performed By: #### D IFF, GFR, BMP, MORPH, CBC #### [place] [id number] CBCon 05-23-2024 Erythrocyte distribution width (RBC) [Ratio] 16.8 % High 11.5-15.5 [facility] Comment on above: Performed By: #### D IFF, BMP, CBC, GFR, MORPH #### [place] [address] Hematocrit (Bld) [Volume fraction] 28.3 % Low 40.0-52.0 [facility] Comment on above: Performed By: #### D IFF, BMP, CBC, GFR, MORPH #### [place] [address] Hgb 9.3 G/dL Low 13.0-17.5 [facility] Comment on above: Performed By: #### D IFF, BMP, CBC, GFR, MORPH #### [place] [address] MCH (RBC) [Entitic mass] 44.2 pg High 27.0-33.0 [facility] Comment on above: Performed By: #### D IFF, BMP, CBC, GFR, MORPH #### [place] [address] MCHC 32.8 G/dL Normal 32.0-36.0 [facility] Comment on above: Performed By: #### D IFF, BMP, CBC, GFR, MORPH #### [place] [address] MCV (RBC) [Entitic vol] 134.7 fL High 81.0-100.0 [facility] Comment on above: Performed By: #### D IFF, BMP, CBC, GFR, MORPH #### [address] [address] Platelet 212 10 3/mcL Normal 150-450 [facility] Comment on above: Performed By: #### D IFF, BMP, CBC, GFR, MORPH #### [address] [address] Platelet mean volume (Bld) [Entitic vol] 7.2 fL Normal 6.4-10.5 [facility] Comment on above: Performed By: #### D IFF, BMP, CBC, GFR, MORPH #### [address] [address] RBC 2.10 10 6/mcL Low 4.50-6.00 [facility] Comment on above: Performed By: #### D IFF, BMP, CBC, GFR, MORPH #### [address] [address] WBC 29.7 10 3/mcL High 4.5-10.8 [facility] Comment on above: Performed By: #### D IFF, BMP, CBC, GFR, MORPH #### [address] [address] Erythrocyte distribution width (RBC) [Ratio] 16.9 % High 11.5-15.5 [facility] Comment on above: Performed By: #### D IFF, GFR, BMP, MORPH, CBC #### [address] [address] Hematocrit (Bld) [Volume fraction] 30.3 % Low 40.0-52.0 [facility] Comment on above: Performed By: #### D IFF, GFR, BMP, MORPH, CBC #### [address] [address] Hgb 10.0 G/dL Low 13.0-17.5 [facility] Comment on above: Performed By: #### D IFF, GFR, BMP, MORPH, CBC #### [address] [address] MCH (RBC) [Entitic mass] 44.4 pg High 27.0-33.0 [facility] Comment on above: Performed By: #### D IFF, GFR, BMP, MORPH, CBC #### [address] [address] MCHC 32.8 G/dL Normal 32.0-36.0 [facility] Comment on above: Performed By: #### D IFF, GFR, BMP, MORPH, CBC #### [address] [address] MCV (RBC) [Entitic vol] 135.1 fL High 81.0-100.0 [facility] Comment on above: Performed By: #### D IFF, GFR, BMP, MORPH, CBC #### [place] [address] Platelet 239 10 3/mcL Normal 150-450 [facility] Comment on above: Performed By: #### D IFF, GFR, BMP, MORPH, CBC #### [place] [address] Platelet mean volume (Bld) [Entitic vol] 7.0 fL Normal 6.4-10.5 [facility] Comment on above: Performed By: #### D IFF, GFR, BMP, MORPH, CBC #### [place] [address] RBC 2.24 10 6/mcL Low 4.50-6.00 [facility] Comment on above: Performed By: #### D IFF, GFR, BMP, MORPH, CBC #### [place] [address] WBC 35.2 10 3/mcL High 4.5-10.8 [facility] Comment on above: Performed By: #### D IFF, GFR, BMP, MORPH, CBC #### [place] [address] CKOrdered By: SYSTEM SYSTEM on 05-23-2024 CK [Catalytic activity/Vol] 47 U/L Normal 7-185 AH ADM SS Comment on above: Performed By: #### D IFF, GFR, BMP, MORPH, CBC #### [place] [address] CKon 05-23-2024 CK [Catalytic activity/Vol] 63 U/L Normal 7-185 [facility] Comment on above: Performed By: #### D IFF, GFR, BMP, MORPH, CBC #### [facility] [address] [place] [address] CT HEAD OR BRAIN W/O CONTRAS Ton [...] 05/23/2024 11:24:05 AM Ordering Provider: VILMA MARTINEZ [facility] MAIN CT SPINE CERVICAL W/O JAIRON Duff 05-23-2024 CT SPINE CERVICAL W/O CONTRAST ORIGINAL [...] 05/23/2024 11:39:01 AM Ordering Provider: VILMA MARTINEZ [facility] MAIN LABORATORYOrdered By: SYSTEM SYSTEM on 05-23-2024 Troponin I.cardiac DL <= 0.01 ng/mL [Mass/Vol] 9 ng/L Normal 0 - 54 ng/L AH ADM SS Comment on above: Interpretive Data: High Sensitive Troponin I Reference Ranges: Female: 0-34 ng/L Male: 0-54 ng/L Testing performed on [employer] analyzer using direct chemiluminescent technology. Dacrocytes LM Ql (Bld) 1+ *NA* (05/23/24 5:00 PM) Invalid Interpretation Code AH Workflow SS Ovalocytes LM Ql (Bld) 1+ *NA* (05/23/24 5:00 PM) Invalid Interpretation Code AH Workflow SS Poikilocytosis LM Ql (Bld) 1+ *NA* (05/23/24 5:00 PM) Invalid Interpretation Code AH Workflow SS Polychromasia LM Ql (Bld) 1+ *NA* (05/23/24 5:00 PM) Invalid Interpretation Code AH Workflow SS PT International Ratio 1.2 ratio Invalid Interpretation Code [employer] SS Comment on above: Interpretive Data: T fernando [employer] (CHEST, 1992, 102:312S-25S) recommended therapeutic range for oral anticoagulant therapy is: LOW RISK: Prophylaxis of venous thrombosis INR: 2.0-3.0 Treatment of pulmonary embolism 2.0-3.0 Prevention of systemic embolism 2.0-3.0 HIGH RISK: Mechanical prosthetic valves 2.5-3.5 Variant lymphocytes/100 WBC (Bld) 20.0 % High 0.0 - 5.0 % Workflow SS CK [Catalytic activity/Vol] 63 U/L Normal 7 - 185 U/L AH ADM SS Differential Comment See Below 15 *NA* (05/23/24 10:16 AM) Invalid Interpretation Code Workflow SS Comment on above: Result Comment: Diff erential performed on albumin smear Ethanol [Mass/Vol] mg/dL Invalid Interpretation Code ADM SS Monocyte distribution width Auto (Bld) [Entitic vol] See Comment Invalid Interpretation Code 0.00 - 20.00 Hematology S Comment on above: Result Comment: The MDW result could not be reported due to a sample abnormality that prevents the MDW from being calculated. Ovalocytes LM Ql (Bld) 1+ *NA* (05/23/24 10:16 AM) Invalid Interpretation Code Workflow SS Stomatocytes LM Ql (Bld) 2+ *NA* (05/23/24 10:16 AM) Invalid Interpretation Code Workflow SS LABORATORYOrdered By: Nilam Galindo on [...] Nitrite Negative (05/23/24 5:08 PM) Normal Negative Auto Urine SS UA pH 7.0 (05/23/24 5:08 PM) Normal 5.0 - 8.0 AH Auto Urine SS UA Protein Trace mg/dL Normal Negative AH Auto Urine SS UA Spec Grav 1.015 (05/23/24 5:08 PM) Normal 1.006-1.029 AH Auto Urine SS UA Specimen Type Clean Catch (05/23/24 5:08 PM) Normal Auto Urine SS UA Urobilinogen 0.2 E.U./dL Normal 0.2-1.0 AH Auto Urine SS LABORATORYOrdered By: Aria rod on 05-23-2024 ABO and Rh group Nom (Bld) Blood group B Rh(D) positive Invalid Interpretation Code BB Auto SS Blood group antibody screen Ql Negative ABSC (05/23/24 5:00 PM) Normal BB Auto SS Laboratory - Chemistry and C hemistry - challengeOrdered By: BitePal on 05-23-2024 Troponin I.cardiac DL <= 0.01 ng/mL [Mass/Vol] 10 ng/L Normal 0 - 54 ng/L ADM Comment on above: Interpretive Data: High Sensitive Troponin I Reference Ranges: Female: 0-34 ng/L Male: 0-54 ng/L Testing performed on [employer] analyzer using direct chemiluminescent technology. MGOrdered By: [employer]itePal on 05-23-2024 Magnesium [Mass/Vol] 1.6 mg/dL Normal 1.6-2.4 A DM Comment on above: Performed By: #### D IFF, GFR, BMP, MORPH, CBC #### [place] [address] PHOSOrdered By: Priztag on 05-23-2024 Phosphate [Mass/Vol] 4.5 mg/dL Normal 2.4-5.1 A DM SS Comment on above: Interpretive Data: * *Note - New Reference Range in effect 19 Result Comment: No te - New Reference Range in effect 19 Performed By: #### D IFF, GFR, BMP, MORPH, CBC #### [place] [address] PROon 05-23-2024 INR Coag (PPP) [Relative time] 1.2 {INR} Normal [facility] Comment on above: Result Comment: [employer] (CHEST, 1991, 102:312S-25S) recommended therapeutic range for oral anticoagulant therapy is: LOW RISK: Prophylaxis of venous thrombosis INR: 2.0-3.0 Treatment of pulmonary embolism 2.0-3.0 Prevention of systemic embolism 2.0-3.0 HIGH RISK: Mechanical prosthetic valves 2.5-3.5 Performed By: #### D IFF, GFR, BMP, MORPH, CBC #### [address] [address] PROOrdered By: SYSTEM SYSTEM on 05-23-2024 PT [...] D IFF, GFR, BMP, MORPH, CBC #### [place] [address] TROPHSon 05-23-2024 High Sensitivity Troponin I 10 ng/L Normal 0-54 [facility] Comment on above: Result Comment: High Sensitive Troponin I Reference Ranges: Female: 0-34 ng/L Male: 0-54 ng/L Testing performed on [employer] IM analyzer using direct chemiluminescent technology. Performed By: #### D IFF, GFR, BMP, MORPH, CBC #### [place] [address] High Sensitivity Troponin I 10 ng/L Normal 0-54 [facility] Comment on above: Result Comment: High Sensitive Troponin I Reference Ranges: Female: 0-34 ng/L Male: 0-54 ng/L Testing performed on [employer] IM analyzer using direct chemiluminescent technology. Performed By: #### D IFF, GFR, BMP, MORPH, CBC #### [place] [address] High Sensitivity Troponin I 9 ng/L Normal 0-54 [facility] Comment on above: Result Comment: High Sensitive Troponin I Reference Ranges: Female: 0-34 ng/L Male: 0-54 ng/L Testing performed on [employer] IM analyzer using direct chemiluminescent technology. Performed By: #### D IFF, GFR, BMP, MORPH, CBC #### [place] [address] UAon 05-23-2024 Color (U) Yellow Normal [facility] Comment on above: Performed By: #### D IFF, GFR, BMP, MORPH, CBC #### [place] [address] Glucose (U) [Mass/Vol] Negative Normal Negative [facility] Comment on above: Performed By: #### D IFF, GFR, BMP, MORPH, CBC #### [place] [address] Ketones Ql (U) Negative Normal Neg-Trace [facility] Comment on above: Performed By: #### D IFF, GFR, BMP, MORPH, CBC #### [place] [address] UA Appear Clear Normal Clear [facility] Comment on above: Performed By: #### D IFF, GFR, BMP, MORPH, CBC #### [place] [id number] UA Blood Negative Normal Neg-Trace [facility] Comment on above: Performed By: #### D IFF, GFR, BMP, MORPH, CBC #### [place] [id number] UA Leuk Est Trace Normal Negative [facility] Comment on above: Performed By: #### D IFF, GFR, BMP, MORPH, CBC #### [place] [id number] UA Nitrite Negative Normal Negative [facility] Comment on above: Performed By: #### D IFF, GFR, BMP, MORPH, CBC #### [address] [address] UA pH 7.0 Normal 5.0 - 8.0 [facility] Comment on above: Performed By: #### D IFF, GFR, BMP, MORPH, CBC #### [address] [address] UA Protein Trace Normal Negative [facility] Comment on above: Performed By: #### D IFF, GFR, BMP, MORPH, CBC #### [address] [address] UA Spec Grav 1.015 Normal 1.006-1.029 [facility] Comment on above: Performed By: #### D IFF, GFR, BMP, MORPH, CBC #### [address] [address] UA Specimen Type Clean Catch Normal [facility] Comment on above: Performed By: #### D IFF, GFR, BMP, MORPH, CBC #### [place] [address] UA Urobilinogen 0.2 E.U./dL Normal 0.2-1.0 [facility] Comment on above: Performed By: #### D IFF, GFR, BMP, MORPH, CBC #### [place] [address] Urobilinogen (U) [Mass/Vol] Negative Normal Neg-Trace [facility] Comment on above: Performed By: #### D IFF, GFR, BMP, MORPH, CBC #### [place] [address] XR CHEST 1 VIEWon 05-23-2024 XR CHEST [...] 05/23/2024 11:28:54 AM Ordering Provider: VILMA MARTINEZ [facility] MAIN Celiac Disease Profileon ENDOMYSIAL IGA Negative Normal Negative [facility] Comment on above: Performed By: #### L 501.6710, [id number] ####[facility] [id number] [place], [place], [id number] IMMUNOGLOB A QN 15 mg/dL Low 61-437 [facility] Comment on above: Result Comment: Resu lt confirmed on concentration. Performed By: #### L 501.6710, [id number] ####[facility] [id number] [place], [place], [id number] tTG IGA <2 Normal 0-3 [facility] Comment on above: Result Comment: Nega tive 0 - 3 Weak Positive 4 - 10 Positive >10 Tissue Transglutaminase (tTG) has been identified as the endomysial antigen. Studies have demonstr- ated that endomysial IgA antibodies have over 99% specificity for gluten sensitive enteropathy. Performed By: #### L 501.6710, [id number] ####[facility] [id number] [place], [place], [id number] tTG IGG <2 Normal 0-5 [facility] Comment on above: Result Comment: Nega tive 0 - 5 Weak Positive 6 - 9 Positive >9Performed at: [facility] [address] [id number] Director: Jorge Chatterjee PhD, Phone: [phone] Performed By: #### L 501.6710, [id number] ####[facility] [address] [place], [place], [id number] CRPon 05-19-2024 C-REACTIVE PROT < 2.90 Normal 0.0-3.0 [facility] Comment on above: Result Comment: C-Re active Protein (CRP) provides useful information for thediagnosis, therapy and monitoring of inflammatory processesand associated diseases. For the evaluation of Relative Riskfor Cardiovascular Disease, a High Sensitivity CRP (HSCRP)should be ordered. Performed By: #### L 501.6710, L3410.2400 ####[facility] [address] [place], [address] MR/BMS.BPon 05-15-2024 MR/BMS.BP Normal [facility] CBC W/Diff, Automatedon - PATH REV Reviewed Normal [facility] Comment on above: Order Comment: CRITI KENTRELL VALUE CALLED TO IPGEIL59/30/25 1507 Preeti Santoyo.RESULTS READ BACK BY SAME. Result Comment: Abso lute lymphocytosis suggestive of low grade lympho-proliferative disorder.Macrocytic anemia.Clinical correlation is necessary.Prashanth Machado M.D. 05/14/24 AMENDED REPORT 05/14/24 1504 PATH REV previously reported as: August Performed By: #### L 100.0100, L503.6550, L504.2610, L503.6030, L500.4050 ####[facility] [address] [place], [address] Comprehensive Metabolic Prof ilon 05-13-2024 Albumin [Mass/Vol] 3.5 g/dL Normal 3.2-5.0 [facility] Comment on above: Performed By: #### L 100.0100, L503.6550, L504.2610, L503.6030, L500.4050 ####[facility] [address] [place], [address] Albumin/Globulin [Mass ratio] 1.3 {ratio} Normal 0.9-2.4 [facility] Comment on above: Performed By: #### L 100.0100, L503.6550, L504.2610, L503.6030, L500.4050 ####[facility] [address] [place], [address] ALK P 65 U/L Normal 45-117 [facility] Comment on above: Performed By: #### L 100.0100, L503.6550, L504.2610, L503.6030, L500.4050 ####[facility] [address] [place], [address] ALT [Catalytic activity/Vol] 19 U/L Normal 16-61 [facility] Comment on above: Performed By: #### L 100.0100, L503.6550, L504.2610, L503.6030, L500.4050 ####[facility] [address] [place], [address] AST [Catalytic activity/Vol] 13 U/L Low 15-37 [facility] Comment on above: Performed By: #### L 100.0100, L503.6550, L504.2610, L503.6030, L500.4050 ####[facility] [address] [place], [address] Bilirubin [Mass/Vol] 0.40 mg/dL Normal 0.20-1.00 [facility] Comment on above: Result Comment: For patients on eltrombopag therapy, use of Dimension [place] TBIL is not recommended. Performed By: #### L 100.0100, L503.6550, L504.2610, L503.6030, L500.4050 ####[facility] [address] [place], [address] BUN/CRE 22.2 RATIO High 10-20 [facility] Comment on above: Performed By: #### L 100.0100, L503.6550, L504.2610, L503.6030, L500.4050 ####[facility] [address] [place], [address] CA,Total 9.4 mg/dL Normal 8.5-10.1 [facility] Comment on above: Performed By: #### L 100.0100, L503.6550, L504.2610, L503.6030, L500.4050 ####[facility] [address] [place], [address] Chloride [Moles/Vol] 109 mmol/L High 98-107 [facility] Comment on above: Performed By: #### L 100.0100, L503.6550, L504.2610, L503.6030, L500.4050 ####[facility] [address] [place], [address] CO2 [Moles/Vol] 20.0 mmol/L Low 21.0-32.0 [facility] Comment on above: Performed By: #### L 100.0100, L503.6550, L504.2610, L503.6030, L500.4050 ####[facility] [address] [place], [address] Creatinine [Mass/Vol] 2.07 mg/dL High 0.70-1.30 [facility] Comment on above: Result Comment: The validity of the calculated GFR GFRAA in patients over70 years has not been determined. Clinical correlation isessential. Performed By: #### L 100.0100, L503.6550, L504.2610, L503.6030, L500.4050 ####[facility] [address] [place], [address] ECRCL 35.88 ml/min Normal [facility] Comment on above: Performed By: #### L 100.0100, L503.6550, L504.2610, L503.6030, L500.4050 ####[facility] [address] [place], [address] EST GFR - AA 41 mL/min Low >60 [facility] Comment on above: Result Comment: Afri can Senegalese GFR Calc Performed By: #### L 100.0100, L503.6550, L504.2610, L503.6030, L500.4050 ####[facility] [address] [place], [address] GAP 9 Normal 5-15 [facility] Comment on above: Performed By: #### L 100.0100, L503.6550, L504.2610, L503.6030, L500.4050 ####[facility] [address] [place], [address] GFR/1.73 sq M.predicted among non-blacks MDRD (S/P/Bld) [Vol rate/Area] 34 mL/min/{1.73_m2} Low >60 [facility] Comment on above: Result Comment: Non- GFR Calc Performed By: #### L 100.0100, L503.6550, L504.2610, L503.6030, L500.4050 ####[facility] [address] [place], [address] Globulin (S) [Mass/Vol] 2.7 g/dL Normal 2.2-4.2 [facility] Comment on above: Performed By: #### L 100.0100, L503.6550, L504.2610, L503.6030, L500.4050 ####[facility] [address] [place], [address] Glucose [Mass/Vol] 127 mg/dL High 74-106 [facility] Comment on above: Result Comment: Fast ing Glucose result greater than or equal to 126 mg/dLsuggests DIABETES MELLITUS per A.D.A. criteria. Performed By: #### L 100.0100, L503.6550, L504.2610, L503.6030, L500.4050 ####[facility] [address] [place], [address] Potassium [Moles/Vol] 4.8 mmol/L Normal 3.5-5.1 [facility] Comment on above: Performed By: #### L 100.0100, L503.6550, L504.2610, L503.6030, L500.4050 ####[facility] [address] [place], [address] Sodium [Moles/Vol] 138 mmol/L Normal 136-145 [facility] Comment on above: Performed By: #### L 100.0100, L503.6550, L504.2610, L503.6030, L500.4050 ####[facility] [address] [place], [address] T PROT 6.2 g/dL Low 6.4-8.2 [facility] Comment on above: Performed By: #### L 100.0100, L503.6550, L504.2610, L503.6030, L500.4050 ####[facility] [address] [place], [address] Urea nitrogen [Mass/Vol] 46 mg/dL High 7-18 [facility] Comment on above: Performed By: #### L 100.0100, L503.6550, L504.2610, L503.6030, L500.4050 ####[facility] [address] [place], [address] Ferritinon 05-13-2024 Ferritin [Mass/Vol] 64 ng/mL Normal 26-388 [facility] Comment on above: Performed By: #### L 100.0100, L503.6550, L504.2610, L503.6030, L500.4050 ####[facility] [address] [place], [address] Iron+Iron Binding Capacityon 05-13-2024 Iron [Mass/Vol] 122 ug/dL Normal 65-175 [facility] Comment on above: Performed By: #### L 100.0100, L503.6550, L504.2610, L503.6030, L500.4050 ####[facility] [address] [place], [address] IRON SATURATION 33.2 Normal 15.0-55.0 [facility] Comment on above: Performed By: #### L 100.0100, L503.6550, L504.2610, L503.6030, L500.4050 ####[facility] [address] [place], [address] TIBC 367 ug/dL Normal 250-450 [facility] Comment on above: Performed By: #### L 100.0100, L503.6550, L504.2610, L503.6030, L500.4050 ####[facility] [address] [place], [address] LDHon 05-13-2024 LDH 187 U/L Normal 87-241 [facility] Comment on above: Order Comment: 1 Performed By: #### L 100.0100, L503.6550, L504.2610, L503.6030, L500.4050 ####[facility] [address] [place], [address] Oncology Visit Reporton 04-16 Oncology Visit Report Normal [facility] Chest PA and Lateralon 05-11 Chest PA and Lateral Normal [facility] Ferritinon 05-11-2024 Ferritin [Mass/Vol] 79 ng/mL Normal 26-388 [facility] Comment on above: Performed By: #### L 503.6075, L503.6550, L503.6150, L500.3600 ####[facility] [address] [place], [address] Ironon 05-11-2024 Iron [Mass/Vol] 78 ug/dL Normal 65-175 [facility] Comment on above: Performed By: #### L 503.6075, L503.6550, L503.6150, L500.3600 ####[facility] [address] [place], [address] Iron Binding Capacity,Totalo n 05-11-2024 TIBC 367 ug/dL Normal 250-450 [facility] Comment on above: Performed By: #### L 503.6075, L503.6550, L503.6150, L500.3600 ####[facility] [address] [place], [address] M100.678on 05-11-2024 M100.678 SARS-CoV-2 (COVID 19 ) Negative INFLUENZA A Negative INFLUENZA B Negative RSV PCR Negative Normal [facility] Comment on above: Performed By: #### M 100.678 ####[facility] [address] [place], [address] Renal Profileon 05-11-2024 Albumin [Mass/Vol] 3.7 g/dL Normal 3.2-5.0 [facility] Comment on above: Performed By: #### L 503.6075, L503.6550, L503.6150, L500.3600 ####[facility] [address] [place], [address] BUN/CRE 16.3 RATIO Normal 10-20 [facility] Comment on above: Performed By: #### L 503.6075, L503.6550, L503.6150, L500.3600 ####[facility] [address] [place], [address] CA,Total 9.2 mg/dL Normal 8.5-10.1 [facility] Comment on above: Performed By: #### L 503.6075, L503.6550, L503.6150, L500.3600 ####[facility] [address] [place], [address] Chloride [Moles/Vol] 107 mmol/L Normal 98-107 [facility] Comment on above: Performed By: #### L 503.6075, L503.6550, L503.6150, L500.3600 ####[facility] [address] [place], [address] CO2 [Moles/Vol] 22.0 mmol/L Normal 21.0-32.0 [facility] Comment on above: Performed By: #### L 503.6075, L503.6550, L503.6150, L500.3600 ####[facility] [address] [place], [address] Creatinine [Mass/Vol] 2.02 mg/dL High 0.70-1.30 [facility] Comment on above: Result Comment: The validity of the calculated GFR GFRAA in patients over70 years has not been determined. Clinical correlation isessential. Performed By: #### L 503.6075, L503.6550, L503.6150, L500.3600 ####[facility] [address] [place], [address] EST GFR - AA 42 mL/min Low >60 [facility] Comment on above: Result Comment: Afri can [place] GFR Calc Performed By: #### L 503.6075, L503.6550, L503.6150, L500.3600 ####[facility] [address] [place], [address] GFR/1.73 sq M.predicted among non-blacks MDRD (S/P/Bld) [Vol rate/Area] 35 mL/min/{1.73_m2} Low >60 [facility] Comment on above: Result Comment: Non- GFR Calc Performed By: #### L 503.6075, L503.6550, L503.6150, L500.3600 ####[facility] [address] [place], [address] Glucose [Mass/Vol] 104 mg/dL Normal 74-106 [facility] Comment on above: Result Comment: Fast ing Glucose result from 100 to 125 mg/dLsuggests IMPAIRED HOMEOSTASIS per A.D.A. criteria. Performed By: #### L 503.6075, L503.6550, L503.6150, L500.3600 ####[facility] [address] [place], [address] Phosphate [Mass/Vol] 4.2 mg/dL Normal 2.5-4.9 [facility] Comment on above: Performed By: #### L 503.6075, L503.6550, L503.6150, L500.3600 ####[facility] [address] [place], [address] Potassium [Moles/Vol] 4.7 mmol/L Normal 3.5-5.1 [facility] Comment on above: Performed By: #### L 503.6075, L503.6550, L503.6150, L500.3600 ####[facility] [address] [place], [address] Sodium [Moles/Vol] 136 mmol/L Normal 136-145 [facility] Comment on above: Performed By: #### L 503.6075, L503.6550, L503.6150, L500.3600 ####[facility] [address] [place], [address] Urea nitrogen [Mass/Vol] 33 mg/dL High 7-18 [facility] Comment on above: Performed By: #### L 503.6075, L503.6550, L503.6150, L500.3600 ####[facility] [address] [place], [address] Cerv Spine 4 or 5 Viewson Cerv Spine 4 or 5 Views Normal [facility] Orthopedic Visit Reporton Orthopedic Visit Report Normal [facility] 12 Lead EKG performed by HANNAH on 05-05-2024 12 Lead EKG performed by BMS [facility] Cardiology Visit Reporton Cardiology Visit Report Normal [facility] .GFRon 05-03-2024 GFR 54 ml/min/1.73sqm [facility] Comment on above: Result Comment: [...] D IFF, BMP, CBC, GFR, MORPH #### [address] [address] GFR Non- 45 ml/min/1.73sqm [facility] MAIN Comment on above: Result Comment: [...] D IFF, BMP, CBC, GFR, MORPH #### [address] [address] .Manual Diffon 05-03-2024 Basophil %, Manual 0.0 % Normal 0.0-2.5 [facility] Comment on above: Performed By: #### D IFF, BMP, CBC, GFR, MORPH #### [address] [address] Basophil, Abs Manual 0.0 10 3/mcL Normal 0.0-0.3 [facility] Comment on above: Performed By: #### D IFF, BMP, CBC, GFR, MORPH #### [address] [address] Eosinophil %, Manual 0.0 % Normal 0.0-6.0 [facility] Comment on above: Performed By: #### D IFF, BMP, CBC, GFR, MORPH #### [address] [address] Eosinophil, Abs Manual 0.0 10 3/mcL Normal 0.0-0.7 [facility] Comment on above: Performed By: #### D IFF, BMP, CBC, GFR, MORPH #### [address] [address] Lymphocyte %, Manual 82.0 % High 20.0-40.0 [facility] Comment on above: Performed By: #### D IFF, BMP, CBC, GFR, MORPH #### [address] [address] Lymphocyte, Abs Manual 17.4 10 3/mcL High 0.9-4.3 [facility] Comment on above: Performed By: #### D IFF, BMP, CBC, GFR, MORPH #### [address] [address] Monocyte %, Manual 0.0 % Low 2.0-13.0 [facility] Comment on above: Performed By: #### D IFF, BMP, CBC, GFR, MORPH #### [address] [address] Monocyte, Abs Manual 0.0 10 3/mcL Low 0.1-1.4 [facility] Comment on above: Performed By: #### D IFF, BMP, CBC, GFR, MORPH #### [address] [address] Neutrophil %, Manual 18.0 % Low 50.0-75.0 [facility] Comment on above: Performed By: #### D IFF, BMP, CBC, GFR, MORPH #### [place] [address] Neutrophil, Abs Manual 3.8 10 3/mcL Normal 2.3-8.1 [facility] Comment on above: Performed By: #### D IFF, BMP, CBC, GFR, MORPH #### [place] [address] Nucleated RBC 0.0 /100 WBC Normal [facility] Comment on above: Performed By: #### D IFF, BMP, CBC, GFR, MORPH #### [place] [address] .Morphon 05-03-2024 Anisocytosis Ql (Bld) 2+ Normal [facility] Comment on above: Performed By: #### D IFF, BMP, CBC, GFR, MORPH #### [place] [address] Differential Comment See Below Normal [facility] Comment on above: Result Comment: Diff erential performed on albumin smear Performed By: #### D IFF, BMP, CBC, GFR, MORPH #### [place] [address] Hypochrom 1+ Normal [facility] Comment on above: Performed By: #### D IFF, BMP, CBC, GFR, MORPH #### [place] [address] Macrocytosis 3+ Normal [facility] Comment on above: Performed By: #### D IFF, BMP, CBC, GFR, MORPH #### [place] [address] Platelet Estimate Normal [facility]IN Comment on above: Performed By: #### D IFF, BMP, CBC, GFR, MORPH #### [place] [address] Poik 1+ [facility]IN Comment on above: Performed By: #### D IFF, BMP, CBC, GFR, MORPH #### [place] [address] Tear Cell 1+ Normal [facility] Comment on above: Performed By: #### D IFF, BMP, CBC, GFR, MORPH #### [address] [address] BMPon 05-03-2024 BUN/Creatinine Ratio 20.0 ratio Normal 10.0-22.0 [facility] Comment on above: Performed By: #### D IFF, GFR, BMP, MORPH, CBC #### [address] [address] Calcium [Mass/Vol] 9.8 mg/dL Normal 8.7-10.4 [facility] Comment on above: Performed By: #### D IFF, GFR, BMP, MORPH, CBC #### [place] [id number] Chloride [Moles/Vol] 108 mmol/L Normal 98-110 [facility] Comment on above: Performed By: #### D IFF, GFR, BMP, MORPH, CBC #### [address] [address] CO2 [Moles/Vol] 24 mmol/L Normal 22-32 [facility] Comment on above: Performed By: #### D IFF, GFR, BMP, MORPH, CBC #### [address] [address] Creatinine [Mass/Vol] 1.55 mg/dL High 0.60-1.40 [facility] Comment on above: Result Comment: Test ing performed on [employer] analyzer using enzymatic creatinine methodology. Performed By: #### D IFF, GFR, BMP, MORPH, CBC #### [address] [address] Electrolyte Balance 8.0 mEq/L Normal 4.0-15.0 [facility] Comment on above: Performed By: #### D IFF, GFR, BMP, MORPH, CBC #### [address] [address] Glucose [Mass/Vol] 128 mg/dL High 82-115 [facility] Comment on above: Performed By: #### D IFF, GFR, BMP, MORPH, CBC #### [address] [address] Potassium [Moles/Vol] 4.4 mmol/L Normal 3.5-5.0 [facility] Comment on above: Performed By: #### D IFF, GFR, BMP, MORPH, CBC #### [address] [address] Sodium [Moles/Vol] 140 mmol/L Normal 136-145 [facility] Comment on above: Performed By: #### D IFF, GFR, BMP, MORPH, CBC #### [address] [address] Urea nitrogen [Mass/Vol] 31.0 mg/dL High 8.0-22.0 [facility] Comment on above: Performed By: #### D IFF, GFR, BMP, MORPH, CBC #### [address] [address] CBCon 05-03-2024 Erythrocyte distribution width (RBC) [Ratio] 16.1 % High 11.5-15.5 [facility] Comment on above: Performed By: #### D IFF, GFR, BMP, MORPH, CBC #### [place] [address] Hematocrit (Bld) [Volume fraction] 26.1 % Low 40.0-52.0 [facility] Comment on above: Performed By: #### D IFF, GFR, BMP, MORPH, CBC #### [place] [address] Hgb 8.6 G/dL Low 13.0-17.5 [facility] Comment on above: Performed By: #### D IFF, GFR, BMP, MORPH, CBC #### [address] [address] MCH (RBC) [Entitic mass] 43.8 pg High 27.0-33.0 [facility] Comment on above: Performed By: #### D IFF, GFR, BMP, MORPH, CBC #### [place] [id number] MCHC 32.8 G/dL Normal 32.0-36.0 [facility] Comment on above: Performed By: #### D IFF, GFR, BMP, MORPH, CBC #### [place] [address] MCV (RBC) [Entitic vol] 133.7 fL High 81.0-100.0 [facility] Comment on above: Performed By: #### D IFF, GFR, BMP, MORPH, CBC #### [place] [address] Platelet 324 10 3/mcL Normal 150-450 [facility] Comment on above: Performed By: #### D IFF, GFR, BMP, MORPH, CBC #### [place] [address] Platelet mean volume (Bld) [Entitic vol] 7.6 fL Normal 6.4-10.5 [facility] Comment on above: Performed By: #### D IFF, GFR, BMP, MORPH, CBC #### [place] [address] RBC 1.95 10 6/mcL Low 4.50-6.00 [facility] Comment on above: Performed By: #### D IFF, GFR, BMP, MORPH, CBC #### [place] [address] WBC 21.2 10 3/mcL High 4.5-10.8 [facility] Comment on above: Performed By: #### D IFF, GFR, BMP, MORPH, CBC #### [place] [address] LABORATORYOrdered By: Kodi Guadalupe on 05-03-2024 Blood Glucose Testing Reason Routine (05/03/24 8:22 AM) [facility] Work Phone: Glucose [Mass/Vol] 118 mg/dL High 82 - 115 mg/dL [facility] Work Phone: LABORATORYOrdered By: SYSTEM SYSTEM on 05-03-2024 Anisocytosis Ql (Bld) 2+ *NA* (05/03/24 5:50 AM) Invalid Interpretation Code AH Workflow SS Basophils (Bld) [#/Vol] 0.0 103/mcL Normal 0.0 - 0.3 10^3/mcL Workflow SS Basophils/100 WBC (Bld) 0.0 % Normal 0.0 - 2.5 % Workflow SS Calcium [Mass/Vol] 9.8 mg/dL Normal 8.7 - 10. 4 mg/dL ADM SS Chloride [Moles/Vol] 108 mmol/L Normal 98 - 11 0 mEq/L ADM SS CO2 [Moles/Vol] 24 mmol/L Normal 22 - 32 mEq/L ADM SS Creatinine [Mass/Vol] 1.55 mg/dL High 0.60 - 1.40 mg/dL ADM SS Comment on above: Interpretive Data: T esting performed on [employer] analyzer using enzymatic creatinine methodology. Dacrocytes LM [...] 16.1 % High 11.5 - 15.5 % Workflow SS GFR/1.73 sq M.predicted among blacks MDRD (S/P/Bld) [Vol rate/Area] 54 ml/min/1.73sqm Invalid Interpretation Code Chemistry S Comment [...] [Vol rate/Area] 45 ml/min/1.73sqm Invalid Interpretation Code Chemistry S Comment [...] 5:50 AM) Invalid Interpretation Code Workflow SS Lymphocytes (Bld) [#/Vol] 17.4 103/mcL High 0.9 - 4.3 10^3/mcL AH Workflow SS Lymphocytes/100 WBC (Bld) 82.0 % High 20.0 - 40.0 % AH Workflow SS Macrocytes Ql (Bld) 3+ *NA* (05/03/24 5:50 AM) Invalid Interpretation Code Workflow SS MCH (RBC) [Entitic mass] 43.8 pg High 27.0 - 33.0 pg AH Workflow SS MCHC 32.8 G/dL Normal 32.0 - 36.0 G/dL Workflow SS MCV (RBC) [Entitic vol] 133.7 [...] 140 mmol/L Normal 136 - 145 mEq/L AH ADM SS Urea nitrogen [Mass/Vol] 31.0 mg/dL High 8.0 - 22.0 mg/dL AH ADM SS Urea nitrogen/Creatinine [Mass ratio] 20.0 ratio Normal 10.0 - 22.0 ratio AH ADM SS WBC (Bld) [#/Vol] 21.2 103/mcL High 4.5 - 10.8 10^3/mcL Workflow SS MYCOon 05-03-2024 Mycoplasma IgG Negative Normal [facility] Comment on above: Result Comment: INTE RPRETATION OF MYCOPLASMA IgG BY EIA: Negative: No detectable M. pneumoniae IgG antibody. Positive: Mycoplasma pneumoniae IgG antibody Detected. Equivocal: Equivocal for IgG antibodies to Mycoplasma pneumoniae. Suggest repeat testing in 10-14 days. Performed By: #### D IFF, GFR, BMP, MORPH, CBC #### [place] [address] .GFRon 05-02-2024 GFR 52 ml/min/1.73sqm [facility] MAIN Comment on above: Result Comment: [...] D IFF, GFR, BMP, MORPH, CBC #### [address] [address] GFR Non- 43 ml/min/1.73sqm [facility] MAIN Comment on above: Result Comment: [...] D IFF, GFR, BMP, MORPH, CBC #### [address] [address] .Manual Diffon 05-02-2024 Bands 2.0 % Normal 0.0-5.0 [facility] Comment on above: Performed By: #### D IFF, GFR, BMP, MORPH, CBC #### [address] [address] Basophil %, Manual 0.0 % Normal 0.0-2.5 [facility] MAIN Comment on above: Performed By: #### D IFF, GFR, BMP, MORPH, CBC #### [address] [address] Basophil, Abs Manual 0.0 10 3/mcL Normal 0.0-0.3 [facility] Comment on above: Performed By: #### D IFF, GFR, BMP, MORPH, CBC #### [address] [address] Eosinophil %, Manual 0.0 % Normal 0.0-6.0 [facility] Comment on above: Performed By: #### D IFF, GFR, BMP, MORPH, CBC #### [address] [address] Eosinophil, Abs Manual 0.0 10 3/mcL Normal 0.0-0.7 [facility] Comment on above: Performed By: #### D IFF, GFR, BMP, MORPH, CBC #### [address] [address] Lymphocyte %, Manual 79.0 % High 20.0-40.0 [facility] Comment on above: Performed By: #### D IFF, GFR, BMP, MORPH, CBC #### [address] [address] Lymphocyte, Abs Manual 18.9 10 3/mcL High 0.9-4.3 [facility] Comment on above: Performed By: #### D IFF, GFR, BMP, MORPH, CBC #### [address] [address] Monocyte %, Manual 5.0 % Normal 2.0-13.0 [facility] Comment on above: Performed By: #### D IFF, GFR, BMP, MORPH, CBC #### [address] [address] Monocyte, Abs Manual 1.2 10 3/mcL Normal 0.1-1.4 [facility] Comment on above: Performed By: #### D IFF, GFR, BMP, MORPH, CBC #### [place] [address] Neutrophil %, Manual 14.0 % Low 50.0-75.0 [facility] Comment on above: Performed By: #### D IFF, GFR, BMP, MORPH, CBC #### [place] [address] Neutrophil, Abs Manual 3.9 10 3/mcL Normal 2.3-8.1 [facility] Comment on above: Performed By: #### D IFF, GFR, BMP, MORPH, CBC #### [place] [address] Nucleated RBC 0.0 /100 WBC Normal [facility] Comment on above: Performed By: #### D IFF, GFR, BMP, MORPH, CBC #### [place] [address] .Morphon 05-02-2024 Anisocytosis Ql (Bld) 1+ Normal [facility] Comment on above: Performed By: #### D IFF, GFR, BMP, MORPH, CBC #### [place] [address] Macrocytosis 1+ Normal [facility] Comment on above: Performed By: #### D IFF, GFR, BMP, MORPH, CBC #### [place] [address] Ovalocytes 1+ Normal [facility] Comment on above: Performed By: #### D IFF, GFR, BMP, MORPH, CBC #### [place] [address] Platelet Estimate Normal Normal [facility] Comment on above: Performed By: #### D IFF, GFR, BMP, MORPH, CBC #### [place] [address] Polychrom 1+ Normal [facility] Comment on above: Performed By: #### D IFF, GFR, BMP, MORPH, CBC #### [place] [address] Smudge Cells 2+ Normal [facility] Comment on above: Performed By: #### D IFF, GFR, BMP, MORPH, CBC #### [address] [address] Stomatocytes 1+ Normal [facility] Comment on above: Performed By: #### D IFF, GFR, BMP, MORPH, CBC #### [address] [address] Tear Cell 1+ Normal [facility] Comment on above: Performed By: #### D IFF, GFR, BMP, MORPH, CBC #### [address] [address] BMPon 05-02-2024 BUN/Creatinine Ratio 17.5 ratio Normal 10.0-22.0 [facility] Comment on above: Performed By: #### D IFF, GFR, BMP, MORPH, CBC #### [address] [address] Calcium [Mass/Vol] 9.4 mg/dL Normal 8.7-10.4 [facility] Comment on above: Performed By: #### D IFF, GFR, BMP, MORPH, CBC #### [address] [address] Chloride [Moles/Vol] 108 mmol/L Normal 98-110 [facility] Comment on above: Performed By: #### D IFF, GFR, BMP, MORPH, CBC #### [address] [address] CO2 [Moles/Vol] 22 mmol/L Normal 22-32 [facility] Comment on above: Performed By: #### D IFF, GFR, BMP, MORPH, CBC #### [address] [address] Creatinine [Mass/Vol] 1.60 mg/dL High 0.60-1.40 [facility] Comment on above: Result Comment: Test ing performed on StyleCaster analyzer using enzymatic creatinine methodology. Performed By: #### D IFF, GFR, BMP, MORPH, CBC #### [address] [address] Electrolyte Balance 9.0 mEq/L Normal 4.0-15.0 [facility] Comment on above: Performed By: #### D IFF, GFR, BMP, MORPH, CBC #### [address] [address] Glucose [Mass/Vol] 127 mg/dL High 82-115 [facility] Comment on above: Performed By: #### D IFF, GFR, BMP, MORPH, CBC #### [place] [id number] Potassium [Moles/Vol] 3.9 mmol/L Normal 3.5-5.0 [facility] Comment on above: Performed By: #### D IFF, GFR, BMP, MORPH, CBC #### [address] [address] Sodium [Moles/Vol] 139 mmol/L Normal 136-145 [facility] Comment on above: Performed By: #### D IFF, GFR, BMP, MORPH, CBC #### [place] [address] Urea nitrogen [Mass/Vol] 28.0 mg/dL High 8.0-22.0 [facility] Comment on above: Performed By: #### D IFF, GFR, BMP, MORPH, CBC #### [address] [address] CBCon 05-02-2024 Erythrocyte distribution width (RBC) [Ratio] 16.6 % High 11.5-15.5 [facility] Comment on above: Performed By: #### D IFF, GFR, BMP, MORPH, CBC #### [place] [id number] Hematocrit (Bld) [Volume fraction] 26.0 % Low 40.0-52.0 [facility] Comment on above: Performed By: #### D IFF, GFR, BMP, MORPH, CBC #### [place] [id number] Hgb 8.6 G/dL Low 13.0-17.5 [facility] Comment on above: Performed By: #### D IFF, GFR, BMP, MORPH, CBC #### [place] [phone] MCH (RBC) [Entitic mass] 44.5 pg High 27.0-33.0 [facility] Comment on above: Performed By: #### D IFF, GFR, BMP, MORPH, CBC #### [place] [address] MCHC 33.2 G/dL Normal 32.0-36.0 [facility] Comment on above: Performed By: #### D IFF, GFR, BMP, MORPH, CBC #### [place] [address] MCV (RBC) [Entitic vol] 134.1 fL High 81.0-100.0 [facility] Comment on above: Performed By: #### D IFF, GFR, BMP, MORPH, CBC #### [place] [address] Platelet 260 10 3/mcL Normal 150-450 [facility] Comment on above: Performed By: #### D IFF, GFR, BMP, MORPH, CBC #### [place] [address] Platelet mean volume (Bld) [Entitic vol] 7.0 fL Normal 6.4-10.5 [facility] Comment on above: Performed By: #### D IFF, GFR, BMP, MORPH, CBC #### [place] [address] RBC 1.94 10 6/mcL Low 4.50-6.00 [facility] Comment on above: Performed By: #### D IFF, GFR, BMP, MORPH, CBC #### [place] [address] WBC 24.0 10 3/mcL High 4.5-10.8 [facility] Comment on above: Performed By: #### D IFF, GFR, BMP, MORPH, CBC #### [place] [address] CT THORAX W/O CONTRASTon CT THORAX W/O [...] 1:27:50 PM Ordering Provider: JEYSON AGUIAR Normal [facility] LABORATORYOrdered By: Bianca Fajardo on 05-02-2024 Glucose [Mass/Vol] 194 mg/dL High 82 - 115 mg/dL [facility] Work Phone: LABORATORYOrdered By: Jerome houston on 05-02-2024 Blood Glucose Testing Reason Routine (05/02/24 4:50 PM) [facility] Work Phone: Glucose [Mass/Vol] 130 mg/dL High 82 - 115 mg/dL [facility] Work Phone: LABORATORYOrdered By: Eveline fam on 05-02-2024 Blood Glucose Testing Reason Routine (05/02/24 11:50 AM) [facility] Work Phone: LABORATORYOrdered By: Aleja Gamble on 05-02-2024 MRSA (PCR) Not Detected 1 (05/02/24 5:15 AM) Normal Not Detected [facility] Auto Viro/Sero SS Comment on above: Result [place]: [place] [id number] MRSA PCR Int MRSA DNA not detecte [...] 1.60 mg/dL High 0.60 - 1.40 mg/dL AH ADM SS Comment on above: Interpretive Data: T esting performed on StyleCaster analyzer using enzymatic creatinine methodology. Dacrocytes LM [...] [Vol rate/Area] 52 ml/min/1.73sqm Invalid Interpretation Code Unidym Chemistry S Comment on above: Interpretive Data: [...] [Vol rate/Area] 43 ml/min/1.73sqm Invalid Interpretation Code Unidym Chemistry S Comment on above: Interpretive Data: [...] 26.0 % Low 40.0 - 52.0 % AH Workflow SS Hemoglobin (Bld) [Mass/Vol] 8.6 G/dL Low 13.0 - 17.5 G/dL AH Workflow SS Lymphocytes (Bld) [#/Vol] 18.9 103/mcL High 0.9 - 4.3 10^3/mcL AH Workflow SS Lymphocytes/100 WBC (Bld) 79.0 % High 20.0 - 40.0 % AH Workflow SS Macrocytes Ql (Bld) 1+ *NA* (05/02/24 12:55 AM) Invalid Interpretation Code AH Workflow SS Magnesium [Mass/Vol] 1.6 mg/dL Normal [...] mEq/L AH ADM SS RBC (Bld) [#/Vol] 1.94 106/mcL [...] 28.0 mg/dL High 8.0 - 22.0 mg/dL ADM SS Urea nitrogen/Creatinine [Mass ratio] 17.5 ratio Normal 10.0 - 22.0 ratio ADM SS WBC (Bld) [#/Vol] 24.0 103/mcL High 4.5 - 10.8 10^3/mcL Workflow SS LABORATORYOrdered By: Marv Molina on 05-02-2024 M. pneumoniae IgG IA Ql (S) Negative Invalid Interpretation Code Auto Viro/Sero SS Comment on above: Interpretive Data: I NTERPRETATION OF MYCOPLASMA IgG BY EIA: Negative: No detectable M. pneumoniae IgG antibody. Positive: Mycoplasma pneumoniae IgG antibody Detected. Equivocal: Equivocal for IgG antibodies to Mycoplasma pneumoniae. Suggest repeat testing in 10-14 days. MGon 05-02-2024 Magnesium [Mass/Vol] 1.6 mg/dL Normal 1.6-2.4 [facility] Comment on above: Performed By: #### D IFF, GFR, BMP, MORPH, CBC #### [facility] [address] [place] [address] MRSAPCRon 05-02-2024 MRSA (PCR) Not detected Normal Not Detected [facility] Comment on above: Result Comment: [place] [id number] Performed By: #### D IFF, GFR, BMP, MORPH, CBC #### [facility] [address] [place] [address] MRSA PCR Int Normal [facility] Comment on above: Result Comment: [...] D IFF, GFR, BMP, MORPH, CBC #### [place] [address] MYCOon 05-02-2024 Mycoplasma IgM Negative Normal [facility] Comment on above: Result Comment: [...] D IFF, GFR, BMP, MORPH, CBC #### [address] [address] No Panel InformationOrdered By: Pavel Solomon on 05-02-2024 Culture Respiratory with Gram Stain Culture results pending. [facility] Comment on above: Requests for Mycopla sma, Legionella, Fungi, Mycobacteria, Chlamydia, and Viruses require ordering of those individual tests. GS 1+ Epithelial cells 3+ Polymorphonuclear cells 3+ Gram Negative Rods 3+ Gram Positive Cocci Rare Yeast [facility] Comment on above: Requests for Mycopla sma, Legionella, Fungi, Mycobacteria, Chlamydia, and Viruses require ordering of those individual tests. No Panel Informationon 05-02 Legionella Urine Ag Presumptive negative for L. pneumophila serogroup 1 antigen in urine, suggesting no recent or current infection. Legionnaire's disease cannot be ruled out since other serogroups and species may also cause disease. [facility] Work Phone: Streptococcus Pneumoniae Urine Antig Presumptive negative for pneumococcal pneumonia, suggesting no current or recent pneumococcal infection. Infection due to Strep pneumoniae cannot be ruled out since the antigen present in the sample may be below the detection limit of the test. [facility] Work Phone: Comment on above: This test has not be en evaluated on patients taking antibiotics for greater than 24 hours or on patients who have recently completed an antibiotic regimen. The accuracy of this test has not been proven in young children. .GFRon 05-01-2024 GFR Non- 33 ml/min/1.73sqm Normal [facility] Comment on above: Result Comment: GFR [...] TROPHS, MORPH, DIFF, CMP, MDW, CBC, PRO ####[place] [address] [place], [place] [address] GFR 40 ml/min/1.73sqm Normal [facility] Comment on above: Result Comment: GFR [...] TROPHS, MORPH, DIFF, CMP, MDW, CBC, PRO ####[place] [address] [place], [place] [address] .MDWon 05-01-2024 Monocyte Distribution Width 34.55 High 0.00-20.00 [facility] Comment on above: Result Comment: The predictive value of MDW for identifying sepsis in patients with hematological abnormalities has not been established Performed By: #### L AC, GFR, APTT, TROPHS, MORPH, DIFF, CMP, MDW, CBC, PRO ####[place] [address] [place], [place] [address] .Manual Diffon 05-01-2024 Bands 4.0 % Normal 0.0-5.0 [facility] Comment on above: Performed By: #### L AC, GFR, APTT, TROPHS, MORPH, DIFF, CMP, MDW, CBC, PRO ####[place] [address] [place], [place] [address] Basophil %, Manual 0.0 % Normal 0.0-2.5 [facility] Comment on above: Performed By: #### L AC, GFR, APTT, TROPHS, MORPH, DIFF, CMP, MDW, CBC, PRO ####[place] [address] [place], [place] [address] Basophil, Abs Manual 0.0 10 3/mcL Normal 0.0-0.2 [facility] Comment on above: Performed By: #### L AC, GFR, APTT, TROPHS, MORPH, DIFF, CMP, MDW, CBC, PRO ####[place] [address] [place], [place] [address] Eosinophil %, Manual 0.0 % Normal 0.0-7.0 [facility] Comment on above: Performed By: #### L AC, GFR, APTT, TROPHS, MORPH, DIFF, CMP, MDW, CBC, PRO ####[facility] [place], [place] [address] Eosinophil, Abs Manual 0.0 10 3/mcL Normal 0.0-0.7 [facility] Comment on above: Performed By: #### L AC, GFR, APTT, TROPHS, MORPH, DIFF, CMP, MDW, CBC, PRO ####[place] [address] [place], [place] [address] Lymphocyte %, Manual 80.0 % High 20.0-40.0 [facility] Comment on above: Performed By: #### L AC, GFR, APTT, TROPHS, MORPH, DIFF, CMP, MDW, CBC, PRO ####[place] [address] [place], [place] [address] Lymphocyte, Abs Manual 14.1 10 3/mcL High 0.9-4.3 [facility] Comment on above: Performed By: #### L AC, GFR, APTT, TROPHS, MORPH, DIFF, CMP, MDW, CBC, PRO ####[place] [address] [place], [place] [address] Monocyte %, Manual 1.0 % Low 2.0-13.0 [facility] Comment on above: Performed By: #### L AC, GFR, APTT, TROPHS, MORPH, DIFF, CMP, MDW, CBC, PRO ####[place] [address] [place], [place] [address] Monocyte, Abs Manual 0.2 10 3/mcL Normal 0.1-1.4 [facility] Comment on above: Performed By: #### L AC, GFR, APTT, TROPHS, MORPH, DIFF, CMP, MDW, CBC, PRO ####[address] [address] Neutrophil %, Manual 15.0 % Low 50.0-75.0 [facility] Comment on above: Performed By: #### L AC, GFR, APTT, TROPHS, MORPH, DIFF, CMP, MDW, CBC, PRO ####[address] [address] Neutrophil, Abs Manual 3.3 10 3/mcL Normal 2.3-8.1 [facility] Comment on above: Performed By: #### L AC, GFR, APTT, TROPHS, MORPH, DIFF, CMP, MDW, CBC, PRO ####[place] [address] [place], [place] [address] Nucleated RBC 0.0 /100 WBC Normal [facility] Comment on above: Performed By: #### L AC, GFR, APTT, TROPHS, MORPH, DIFF, CMP, MDW, CBC, PRO ####[place] [address] [place], [place] [address] .Morphon 05-01-2024 Anisocytosis Ql (Bld) 1+ Normal [facility] Comment on above: Performed By: #### L AC, GFR, APTT, TROPHS, MORPH, DIFF, CMP, MDW, CBC, PRO ####[place] [address] [place] [address] Macrocytosis 1+ Normal [facility] Comment on above: Performed By: #### L AC, GFR, APTT, TROPHS, MORPH, DIFF, CMP, MDW, CBC, PRO ####[place] [address] [place] [address] Ovalocytes 1+ Normal [facility] Comment on above: Performed By: #### L AC, GFR, APTT, TROPHS, MORPH, DIFF, CMP, MDW, CBC, PRO ####[place] [address] [place] [address] Platelet Estimate Normal Normal [facility] Comment on above: Performed By: #### L AC, GFR, APTT, TROPHS, MORPH, DIFF, CMP, MDW, CBC, PRO ####[place] [address] [place] [address] Smudge Cells 2+ Normal [facility] Comment on above: Performed By: #### L AC, GFR, APTT, TROPHS, MORPH, DIFF, CMP, MDW, CBC, PRO ####[place] [address] [place] [address] Tear Cell 1+ Normal [facility] Comment on above: Performed By: #### L AC, GFR, APTT, TROPHS, MORPH, DIFF, CMP, MDW, CBC, PRO ####[place] [address] [place] [address] .Urinalysis Microscopic (AO) on 05-01-2024 UA Bacteria 3+ /hpf Abnormal [facility] Comment on above: Performed By: #### U A, UAMICAO ####[place] [address] [place], [place] [address] UA RBC None Seen Normal None Seen [facility] Comment on above: Performed By: #### U A UAMICAO ####[address] [address] UA Squam Epithelial None Seen Normal None Seen [facility] Comment on above: Performed By: #### U A UAMICAO ####[facility] [place], [place] [address] UA WBC 10-15 Abnormal None Seen [facility] Comment on above: Performed By: #### U A UAMICAO ####[place] [address] [place], [place] [address] APTTon 05-01-2024 aPTT Coag (Bld) [Time] 33.0 s Normal 25.0-35.0 [facility] Comment on above: Result Comment: For Heparin anticoagulation therapy, the recommended therapeutic range is: 45.4-75.9 seconds. Patients on heparin therapy may have an extreme result. Performed By: #### L AC, GFR, APTT, TROPHS, MORPH, DIFF, CMP, MDW, CBC, PRO #### [address] [address] CBCon 05-01-2024 Erythrocyte distribution width (RBC) [Ratio] 16.5 % High 11.5-15.5 [facility] Comment on above: Performed By: #### L AC, GFR, APTT, TROPHS, MORPH, DIFF, CMP, MDW, CBC, PRO #### [address] [address] Hematocrit (Bld) [Volume fraction] 28.0 % Low 40.0-52.0 [facility] Comment on above: Performed By: #### L AC, GFR, APTT, TROPHS, MORPH, DIFF, CMP, MDW, CBC, PRO #### [address] [address] Hgb 9.5 G/dL Low 13.0-17.5 [facility] Comment on above: Performed By: #### L AC, GFR, APTT, TROPHS, MORPH, DIFF, CMP, MDW, CBC, PRO #### [address] [address] MCH (RBC) [Entitic mass] 44.5 pg High 27.0-33.0 [facility] Comment on above: Performed By: #### L AC, GFR, APTT, TROPHS, MORPH, DIFF, CMP, MDW, CBC, PRO #### [address] [address] MCHC 34.0 G/dL Normal 32.0-36.0 [facility] Comment on above: Performed By: #### L AC, GFR, APTT, TROPHS, MORPH, DIFF, CMP, MDW, CBC, PRO #### [place] [address] MCV (RBC) [Entitic vol] 131.0 fL High 81.0-100.0 [facility] Comment on above: Performed By: #### L AC, GFR, APTT, TROPHS, MORPH, DIFF, CMP, MDW, CBC, PRO #### [address] [address] Platelet 270 10 3/mcL Normal 150-450 [facility] Comment on above: Performed By: #### L AC, GFR, APTT, TROPHS, MORPH, DIFF, CMP, MDW, CBC, PRO #### [address] [address] Platelet mean volume (Bld) [Entitic vol] 7.6 fL Normal 6.4-10.5 [facility] Comment on above: Performed By: #### L AC, GFR, APTT, TROPHS, MORPH, DIFF, CMP, MDW, CBC, PRO #### [address] [address] RBC 2.14 10 6/mcL Low 4.50-6.00 [facility] Comment on above: Performed By: #### L AC, GFR, APTT, TROPHS, MORPH, DIFF, CMP, MDW, CBC, PRO #### [place] [id number] WBC 17.6 10 3/mcL High 4.5-10.8 [facility] Comment on above: Performed By: #### L AC, GFR, APTT, TROPHS, MORPH, DIFF, CMP, MDW, CBC, PRO #### [facility] [address] [place], [place] [address] CMPon 05-01-2024 Albumin Level 3.6 G/dL Normal 3.4-4.8 [facility] Comment on above: Performed By: #### L AC, GFR, APTT, TROPHS, MORPH, DIFF, CMP, MDW, CBC, PRO ####[facility] [place], [place] [address] Albumin/Globulin [Mass ratio] 1.1 {ratio} Normal 1.1-2.5 [facility] Comment on above: Performed By: #### L AC, GFR, APTT, TROPHS, MORPH, DIFF, CMP, MDW, CBC, PRO ####[facility] [place], [place] [address] ALP [Catalytic activity/Vol] 93 U/L Normal 40-135 [facility] Comment on above: Performed By: #### L AC, GFR, APTT, TROPHS, MORPH, DIFF, CMP, MDW, CBC, PRO ####[facility] [place], [place] [address] ALT [Catalytic activity/Vol] 13 U/L Low 16-63 [facility] Comment on above: Performed By: #### L AC, GFR, APTT, TROPHS, MORPH, DIFF, CMP, MDW, CBC, PRO ####[place] [address] [place], [place] [address] AST [Catalytic activity/Vol] 46 U/L High 10-40 [facility] Comment on above: Performed By: #### L AC, GFR, APTT, TROPHS, MORPH, DIFF, CMP, MDW, CBC, PRO ####[facility] [place], [place] [address] Bili Total 1.0 mg/dL Normal 0.2-1.0 [facility] Comment on above: Result Comment: Use of this assay is not recommended for patients undergoing treatment with eltrombopag due to the potential for falsely elevated results. Performed By: #### L AC, GFR, APTT, TROPHS, MORPH, DIFF, CMP, MDW, CBC, PRO ####[place] [address] [place], [place] [address] BUN/Creatinine Ratio 18 ratio Normal 7-27 [facility] Comment on above: Performed By: #### L AC, GFR, APTT, TROPHS, MORPH, DIFF, CMP, MDW, CBC, PRO ####[place] [address] [place], [place] [address] Calcium [Mass/Vol] 9.8 mg/dL Normal 8.4-10.2 [facility] Comment on above: Performed By: #### L AC, GFR, APTT, TROPHS, MORPH, DIFF, CMP, MDW, CBC, PRO ####[place] [address] [place] [id number] Chloride [Moles/Vol] 100 mmol/L Normal 98-107 [facility] Comment on above: Performed By: #### L AC, GFR, APTT, TROPHS, MORPH, DIFF, CMP, MDW, CBC, PRO ####[place] [address] [place] [phone] CO2 [Moles/Vol] 24 mmol/L Normal 23-31 [facility] Comment on above: Performed By: #### L AC, GFR, APTT, TROPHS, MORPH, DIFF, CMP, MDW, CBC, PRO ####[place] [address] [place], [place] [address] Creatinine [Mass/Vol] 2.01 mg/dL High 0.70-1.30 [facility] Comment on above: Result Comment: Test ing performed on Siemens Dimension EXL analyzer using a modified kinetic Becca technique. Performed By: #### L AC, GFR, APTT, TROPHS, MORPH, DIFF, CMP, MDW, CBC, PRO ####[place] [address] [place], [place] [address] Electrolyte Balance 13.0 mEq/L Normal 4.0-15.0 [facility] Comment on above: Performed By: #### L AC, GFR, APTT, TROPHS, MORPH, DIFF, CMP, MDW, CBC, PRO ####[facility] [place], [place] [address] Globulin 3.3 G/dL Normal [facility] Comment on above: Performed By: #### L AC, GFR, APTT, TROPHS, MORPH, DIFF, CMP, MDW, CBC, PRO ####[place] [address] [place], [place] [address] Glucose [Mass/Vol] 134 mg/dL High 83-110 [facility] Comment on above: Performed By: #### L AC, GFR, APTT, TROPHS, MORPH, DIFF, CMP, MDW, CBC, PRO ####[place] [address] [place], [place] [address] Potassium [Moles/Vol] 5.3 mmol/L High 3.5-5.1 [facility] Comment on above: Performed By: #### L AC, GFR, APTT, TROPHS, MORPH, DIFF, CMP, MDW, CBC, PRO ####[place] [address] [place], [place] [address] Sodium [Moles/Vol] 137 mmol/L Normal 136-145 [facility] Comment on above: Performed By: #### L AC, GFR, APTT, TROPHS, MORPH, DIFF, CMP, MDW, CBC, PRO ####[facility] [place], [place] [address] Total Protein 6.9 G/dL Normal 6.4-8.2 [facility] Comment on above: Performed By: #### L AC, GFR, APTT, TROPHS, MORPH, DIFF, CMP, MDW, CBC, PRO ####[facility] [place], [place] [address] Urea nitrogen [Mass/Vol] 36 mg/dL High 7-18 [facility] Comment on above: Performed By: #### L AC, GFR, APTT, TROPHS, MORPH, DIFF, CMP, MDW, CBC, PRO ####[address] [address] CVFLURVon 05-01-2024 FLU A PCR Negative Normal Negative [facility] Comment on above: Performed By: #### C VFLURV #### [place] [address] FLU B PCR Negative Normal Negative [facility] Comment on above: Performed By: #### C VFLURV #### [place] [address] RSV PCR Negative Normal Negative [facility] Comment on above: Performed By: #### C VFLURV #### [place] [address] SARS-CoV-2 (COVID-19) RNA MYA+probe Ql (Unsp spec) Negative Normal Negative [facility] Comment on above: Result Comment: Resu [...] results. Performed By: #### C VFLURV #### [place] [address] LABORATORYOrdered By: Marjorie Natarajan on 05-01-2024 Appearance [...] [employer] SS Comment on above: Interpretive Data: [employer]ure[employer] (CHEST, 1992, 102:312S-25S) [...] ng/L Male: 0-76 ng/L Testing performed on Aiotra using a homogeneous sandwich chemiluminescent immunoassay based on [employer] technology. Urea nitrogen [Mass/Vol] 36 mg/dL High 7 - 18 mg/dL AO ADM SS Urea nitrogen/Creatinine [Mass ratio] 18 ratio Normal 7 - 27 ratio AO ADM SS WBC (Bld) [#/Vol] 17.6 103/mcL High 4.5 - 10.8 10^3/mcL AO Workflow SS LACon 05-01-2024 Lactic Acid Lvl 1.4 mmol/L Normal 0.4-2.0 [facility] Comment on above: Performed By: #### L AC, GFR, APTT, TROPHS, MORPH, DIFF, CMP, MDW, CBC, PRO #### [place] [id number] [place], [place] [address] No Panel Informationon 05-01 Microscopic examination of blood, culture Culture has been received in lab and is no growth to date. Routine cultures are held for 5 days. [facility] Work Phone: PROon 05-01-2024 PT Coag (PPP) [Time] 17.5 s High 9.0-14.4 [facility] Comment on above: Performed By: #### L AC, GFR, APTT, TROPHS, MORPH, DIFF, CMP, MDW, CBC, PRO #### [place] [id number] [place], [place] [address] PT International Ratio 1.5 Normal [facility] Comment on above: Result Comment: [employer] (CHEST, 1992, 102:312S-25S) recommended therapeutic range for oral anticoagulant therapy is: LOW RISK: Prophylaxis of venous thrombosis INR: 2.0-3.0 Treatment of pulmonary embolism 2.0-3.0 Prevention of systemic embolism 2.0-3.0 HIGH RISK: Mechanical prosthetic valves 2.5-3.5 Performed By: #### L AC, GFR, APTT, TROPHS, MORPH, DIFF, CMP, MDW, CBC, PRO #### [place] [address] [place], [place] [address] TROPHSon 05-01-2024 High Sensitivity Troponin I 9 ng/L Normal 0-76 [facility] Comment on above: Result Comment: High Sensitive Troponin I Reference Ranges: Female: 0-51 ng/L Male: 0-76 ng/L Testing performed on [employer] using a homogeneous sandwich chemiluminescent immunoassay based on [employer] technology. Performed By: #### L AC, GFR, APTT, TROPHS, MORPH, DIFF, CMP, MDW, CBC, PRO #### [facility] [place] [address] [place], [place] [address] UAon 05-01-2024 Color (U) Yellow Normal [facility] Comment on above: Performed By: #### U A, [place] ####[facility] [address] [place] [id number] Glucose (U) [Mass/Vol] Negative Normal Negative [facility] Comment on above: Performed By: #### U A, [place] ####[facility] [address] [place], [place] [address] Ketones Ql (U) Negative Normal Negative [facility] Comment on above: Performed By: #### U A, [place] ####[place] [address] [address] UA Appear Clear Normal Clear [facility] Comment on above: Performed By: #### U A, [place] ####[facility] [address] [place] [id number] UA Blood Negative Normal Negative [facility] Comment on above: Performed By: #### U A, [place] ####[address]abel[address] [place], [place] [address] UA Leuk Est Negative Normal Negative [facility] Comment on above: Performed By: #### U A, UAMICAO ####[facility] [address] [place], [place] [address] UA Nitrite Positive Abnormal Negative [facility] Comment on above: Performed By: #### U A, UAMICAO ####[facility] [address] [place] [address] UA pH 5.5 Normal 5.0 - 8.0 [facility] Comment on above: Performed By: #### U A, UAMICAO ####[place] [address] [place] [address] UA Protein Trace Normal Negative [facility] Comment on above: Performed By: #### U A, UAMICAO ####[place] [address] [place] [address] UA Spec Grav 1.015 Normal 1.015-1.025 [facility] Comment on above: Performed By: #### U A, UAMICAO ####[place] [address] [place] [address] UA Specimen Type Clean Catch Normal [facility] Comment on above: Performed By: #### U A, UAMICAO ####[facility] [place] [address] UA Urobilinogen 0.2 E.U./dL Normal 0.2-1.0 [facility] Comment on above: Performed By: #### U A, UAMICAO ####[place] [address] [place] [address] Urobilinogen (U) [Mass/Vol] Negative Normal Negative [facility] Comment on above: Performed By: #### U A, UAMICAO ####[facility] [place] [address] XR CHEST 1 VIEWon 05-01-2024 XR CHEST [...] 3:07:49 PM Ordering Provider: NATASHA BERRY Normal [facility] Discharge Instructionon 04-14 Discharge Instruction Normal [facility] MR/POSTOP.ANEon 04-27-2024 MR/POSTOP.ANE Normal [facility] MR/[id number] 04-27-2024 MR/POSTOPAN2 Normal [facility] Operative Reporton Operative Report Normal [facility] MR/PAT.ANEon 04-23-2024 MR/PAT.ANE Normal [facility] CBC W/Diff, Automatedon PATH REV Reviewed Normal [facility] Comment on above: Result Comment: Abso lute lymphocytosis suggestive of low grade lympho-proliferative disorder.Clinical correlation is necessary.Macrocytic anemia.Prashanth Machado M.D. 04/19/24 AMENDED REPORT 04/19/24 1320 PATH REV previously reported as: August Performed By: #### L 506.1000, L501.9520, L100.0100, L500.4050 ####[facility] [address] [place], [place], [address] Comprehensive Metabolic Prof ilon 04-16-2024 Albumin [Mass/Vol] 3.8 g/dL Normal 3.2-5.0 [facility] Comment on above: Performed By: #### L 506.1000, L501.9520, L100.0100, L500.4050 ####[facility] [address] [place], [address] Albumin/Globulin [Mass ratio] 1.2 {ratio} Normal 0.9-2.4 [facility] Comment on above: Performed By: #### L 506.1000, L501.9520, L100.0100, L500.4050 ####[facility] [address] [place], [address] ALK P 93 U/L Normal 45-117 [facility] Comment on above: Performed By: #### L 506.1000, L501.9520, L100.0100, L500.4050 ####[facility] [address] [place], [address] ALT [Catalytic activity/Vol] 14 U/L Low 16-61 [facility] Comment on above: Performed By: #### L 506.1000, L501.9520, L100.0100, L500.4050 ####[facility] [address] [place], [address] AST [Catalytic activity/Vol] 7 U/L Low 15-37 [facility] Comment on above: Performed By: #### L 506.1000, L501.9520, L100.0100, L500.4050 ####[facility] [address] [place], [address] Bilirubin [Mass/Vol] 0.40 mg/dL Normal 0.20-1.00 [facility] Comment on above: Result Comment: For patients on eltrombopag therapy, use of Dimension [place] TBIL is not recommended. Performed By: #### L 506.1000, L501.9520, L100.0100, L500.4050 ####[facility] [address] [place], [address] BUN/CRE 22.1 RATIO High 10-20 [facility] Comment on above: Performed By: #### L 506.1000, L501.9520, L100.0100, L500.4050 ####[facility] [address] [place], [address] CA,Total 9.2 mg/dL Normal 8.5-10.1 [facility] Comment on above: Performed By: #### L 506.1000, L501.9520, L100.0100, L500.4050 ####[facility] [address] [place], [address] Chloride [Moles/Vol] 109 mmol/L High 98-107 [facility] Comment on above: Performed By: #### L 506.1000, L501.9520, L100.0100, L500.4050 ####[facility] [address] [place], [address] CO2 [Moles/Vol] 23.0 mmol/L Normal 21.0-32.0 [facility] Comment on above: Performed By: #### L 506.1000, L501.9520, L100.0100, L500.4050 ####[facility] [address] [place], [address] Creatinine [Mass/Vol] 1.99 mg/dL High 0.70-1.30 [facility] Comment on above: Result Comment: The validity of the calculated GFR GFRAA in patients over70 years has not been determined. Clinical correlation isessential. Performed By: #### L 506.1000, L501.9520, L100.0100, L500.4050 ####[facility] [address] [place], [address] EST GFR - AA 43 mL/min Low >60 [facility] Comment on above: Result Comment: Afri can Senegalese GFR Calc Performed By: #### L 506.1000, L501.9520, L100.0100, L500.4050 ####[facility] [address] [place], [address] GAP 7 Normal 5-15 [facility] Comment on above: Performed By: #### L 506.1000, L501.9520, L100.0100, L500.4050 ####[facility] [address] [place], [address] GFR/1.73 sq M.predicted among non-blacks MDRD (S/P/Bld) [Vol rate/Area] 35 mL/min/{1.73_m2} Low >60 [facility] Comment on above: Result Comment: Non- GFR Calc Performed By: #### L 506.1000, L501.9520, L100.0100, L500.4050 ####[facility] [address] [place], [address] Globulin (S) [Mass/Vol] 3.1 g/dL Normal 2.2-4.2 [facility] Comment on above: Performed By: #### L 506.1000, L501.9520, L100.0100, L500.4050 ####[facility] [address] [place], [address] Glucose [Mass/Vol] 119 mg/dL High 74-106 [facility] Comment on above: Result Comment: Fast ing Glucose result from 100 to 125 mg/dLsuggests IMPAIRED HOMEOSTASIS per A.D.A. criteria. Performed By: #### L 506.1000, L501.9520, L100.0100, L500.4050 ####[facility] [address] [place], [address] Potassium [Moles/Vol] 4.6 mmol/L Normal 3.5-5.1 [facility] Comment on above: Performed By: #### L 506.1000, L501.9520, L100.0100, L500.4050 ####[facility] [address] [place], [address] Sodium [Moles/Vol] 139 mmol/L Normal 136-145 [facility] Comment on above: Performed By: #### L 506.1000, L501.9520, L100.0100, L500.4050 ####[facility] [address] [place], [address] T PROT 6.9 g/dL Normal 6.4-8.2 [facility] Comment on above: Performed By: #### L 506.1000, L501.9520, L100.0100, L500.4050 ####[facility] [address] [place], [address] Urea nitrogen [Mass/Vol] 44 mg/dL High 7-18 [facility] Comment on above: Performed By: #### L 506.1000, L501.9520, L100.0100, L500.4050 ####[facility] [address] [place], [address] MR/BMS.BPon 04-16-2024 MR/BMS.BP Normal [facility] Thyroid Stim Hormone (TSH)on 04-16-2024 TSH 0.799 uIU/mL Normal 0.358-3.740 [facility] Comment on above: Performed By: #### L 506.1000, L501.9520, L100.0100, L500.4050 ####[facility] [address] [place], [address] Vitamin D,25 Hydroxyon 04-16 Vitamin D 25-OH 41.2 ng/mL Normal [facility] Comment on above: Result Comment: Mila min D 25(OH) Status Range Deficiency <20 ng/mL (50nmol/L) Insufficiency 20 - 30 ng/mL (50 - 75 nmol/L) Sufficiency 30 - 100 ng/mL (75 - 250 nmol/L) Toxicity >100 ng/mL (>250 nmol/L) Performed By: #### L 506.1000, L501.9520, L100.0100, L500.4050 ####[facility] [address] [place], [address] Re-Evaluation - PT (1)on Re-Evaluation - PT (1) Normal [facility] Upper Ext No Joint W/WO Cont on 03-26-2024 Upper Ext No Joint W/WO Cont Normal [facility] CBC W/Diff, Automatedon - PATH REV Reviewed Normal [facility] Comment on above: Result Comment: LYMP HOCYTOSIS SUGGESTIVE OF PROLIFERATIVE PROCESSMacrocytic anemia.Clinical correlation necessary.Daniele Sandy D.O. 03/22/24 AMENDED REPORT 03/22/24 1438 PATH REV previously reported as: August Performed By: #### L 100.0100 ####[facility] [address] [place], [address] Culture, Blood (WB)on 2023 CUB Blood cultures x2, f rom two different sites No growth in 5 days. Normal [facility] Comment on above: Performed By: #### M 200.1000 ####[facility] [address] [place], [address] Basic Metabolic Profile (BMP )on 03-20-2024 BUN/CRE 11.8 RATIO Normal 10-20 [facility] Comment on above: Performed By: #### L 500.2500 ####[facility] [address] [place], [address] CA,Total 9.4 mg/dL Normal 8.5-10.1 [facility] Comment on above: Performed By: #### L 500.2500 ####[facility] [address] [place], [address] Chloride [Moles/Vol] 112 mmol/L High 98-107 [facility] Comment on above: Performed By: #### L 500.2500 ####[facility] [address] [place], [address] CO2 [Moles/Vol] 23.0 mmol/L Normal 21.0-32.0 [facility] Comment on above: Performed By: #### L 500.2500 ####[facility] [address] [place], [address] Creatinine [Mass/Vol] 1.70 mg/dL High 0.70-1.30 [facility] Comment on above: Result Comment: The validity of the calculated GFR GFRAA in patients over70 years has not been determined. Clinical correlation isessential. Performed By: #### L 500.2500 ####[facility] [address] [place], [address] ECRCL 41.75 ml/min Normal [facility] Comment on above: Performed By: #### L 500.2500 ####[facility] [address] [place], [address] EST GFR - AA 51 mL/min Low >60 [facility] Comment on above: Result Comment: Afri can [place] GFR Calc Performed By: #### L 500.2500 ####[facility] [address] [place], [address] GAP 7 Normal 5-15 [facility] Comment on above: Performed By: #### L 500.2500 ####[facility] [address] [place], [address] GFR/1.73 sq M.predicted among non-blacks MDRD (S/P/Bld) [Vol rate/Area] 43 mL/min/{1.73_m2} Low >60 [facility] Comment on above: Result Comment: Non- GFR Calc Performed By: #### L 500.2500 ####[facility] [address] [place], [address] Glucose [Mass/Vol] 95 mg/dL Normal 74-106 [facility] Comment on above: Performed By: #### L 500.2500 ####[facility] [address] [place], [address] Potassium [Moles/Vol] 4.2 mmol/L Normal 3.5-5.1 [facility] Comment on above: Performed By: #### L 500.2500 ####[facility] [address] [place], [address] Sodium [Moles/Vol] 142 mmol/L Normal 136-145 [facility] Comment on above: Performed By: #### L 500.2500 ####[facility] [address] [place], [address] Urea nitrogen [Mass/Vol] 20 mg/dL High 7-18 [facility] Comment on above: Performed By: #### L 500.2500 ####[facility] [address] [place], [address] Discharge Instructionon Discharge Instruction Normal [facility] CBC W/Diff, Automatedon PATH REV Reviewed Normal [facility] Comment on above: Result Comment: Neut rophilic leukocytosis.Macrocytic anemia.Clinical correlation suggested.Omega DominguezOYecenia 03/19/24 AMENDED REPORT 03/19/24 1419 PATH REV previously reported as: May foll Performed By: #### L 100.0100 ####[facility] [address] [place], [address] PATH REV Reviewed Normal [facility] Comment on above: Result Comment: LYMP HOCYTOSIS CONSISTENT WITH CLLMacrocytic anemia.Clinical correlation necessary.Daniele Sandy D.O. 03/19/24 AMENDED REPORT 03/19/24 1414 PATH REV previously reported as: May foll Performed By: #### L 100.0100, L500.4050 ####[facility] [address] [place], [address] Respiratory Cultureon 2023 RESPC Normal [facility] Comment on above: Performed By: #### M 100.678, M100.2400, M100.2000 ####[facility] [address] [place], [address] Urine Cultureon 03-19-2024 URC Normal [facility] Comment on above: Performed By: #### L 400.0001, M100.2200 ####[facility] [address] [place], [address] CBC W/Diff, Automatedon 12-0 PATH REV Reviewed Normal [facility] Comment on above: Result Comment: ABSO LUTE LYMPHOCYTOSIS SUGGESTIVE OF PROLIFERATIVE DISORDERMacrocytic anemia.Clinical correlation necessary.Daniele Sandy D.O. 03/18/24 AMENDED REPORT 03/18/24 1441 PATH REV previously reported as: August Performed By: #### L 500.4050, L503.6005, L100.0100, L300.3900, L300.4310, L501.4020 ####[facility] [address] [place], [address] Comprehensive Metabolic Prof ilon 03-18-2024 Albumin [Mass/Vol] 2.7 g/dL Low 3.2-5.0 [facility] Comment on above: Performed By: #### L 100.0100, L500.4050 ####[facility] [address] [place], [address] Albumin/Globulin [Mass ratio] 1.0 {ratio} Normal 0.9-2.4 [facility] Comment on above: Performed By: #### L 100.0100, L500.4050 ####[facility] [address] [place], [address] ALK P 66 U/L Normal 45-117 [facility] Comment on above: Performed By: #### L 100.0100, L500.4050 ####[facility] [address] [place], [address] ALT [Catalytic activity/Vol] 8 U/L Low 16-61 [facility] Comment on above: Performed By: #### L 100.0100, L500.4050 ####[facility] [address] [place], [address] AST [Catalytic activity/Vol] 8 U/L Low 15-37 [facility] Comment on above: Performed By: #### L 100.0100, L500.4050 ####[facility] [address] [place], [address] Bilirubin [Mass/Vol] 0.40 mg/dL Normal 0.20-1.00 [facility] Comment on above: Result Comment: For patients on eltrombopag therapy, use of Dimension [place] TBIL is not recommended. Performed By: #### L 100.0100, L500.4050 ####[facility] [address] [place], [address] BUN/CRE 14.5 RATIO Normal 10-20 [facility] Comment on above: Performed By: #### L 100.0100, L500.4050 ####[facility] [address] [place], [address] CA,Total 8.5 mg/dL Normal 8.5-10.1 [facility] Comment on above: Performed By: #### L 100.0100, L500.4050 ####[facility] [address] [place], [address] Chloride [Moles/Vol] 114 mmol/L High 98-107 [facility] Comment on above: Performed By: #### L 100.0100, L500.4050 ####[facility] [address] [place], [address] CO2 [Moles/Vol] 23.0 mmol/L Normal 21.0-32.0 [facility] Comment on above: Performed By: #### L 100.0100, L500.4050 ####[facility] [address] [place], [address] Creatinine [Mass/Vol] 1.52 mg/dL High 0.70-1.30 [facility] Comment on above: Result Comment: The validity of the calculated GFR GFRAA in patients over70 years has not been determined. Clinical correlation isessential. Performed By: #### L 100.0100, L500.4050 ####[facility] [address] [place], [address] ECRCL 46.69 ml/min Normal [facility] Comment on above: Performed By: #### L 100.0100, L500.4050 ####[facility] [address] [place], [address] EST GFR - AA 59 mL/min Low >60 [facility] Comment on above: Result Comment: Afri can [place] GFR Calc Performed By: #### L 100.0100, L500.4050 ####[facility] [address] [place], [address] GAP 6 Normal 5-15 [facility] Comment on above: Performed By: #### L 100.0100, L500.4050 ####[facility] [address] [place], [address] GFR/1.73 sq M.predicted among non-blacks MDRD (S/P/Bld) [Vol rate/Area] 48 mL/min/{1.73_m2} Low >60 [facility] Comment on above: Result Comment: Non- GFR Calc Performed By: #### L 100.0100, L500.4050 ####[facility] [address] [place], [address] Globulin (S) [Mass/Vol] 2.7 g/dL Normal 2.2-4.2 [facility] Comment on above: Performed By: #### L 100.0100, L500.4050 ####[facility] [address] [place], [address] Glucose [Mass/Vol] 105 mg/dL Normal 74-106 [facility] Comment on above: Result Comment: Fast ing Glucose result from 100 to 125 mg/dLsuggests IMPAIRED HOMEOSTASIS per A.D.A. criteria. Performed By: #### L 100.0100, L500.4050 ####[facility] [address] [place], [address] Potassium [Moles/Vol] 3.9 mmol/L Normal 3.5-5.1 [facility] Comment on above: Performed By: #### L 100.0100, L500.4050 ####[facility] [address] [place], [address] Sodium [Moles/Vol] 143 mmol/L Normal 136-145 [facility] Comment on above: Performed By: #### L 100.0100, L500.4050 ####[facility] [address] [place], [address] T PROT 5.4 g/dL Low 6.4-8.2 [facility] Comment on above: Performed By: #### L 100.0100, L500.4050 ####[facility] [address] [place], [address] Urea nitrogen [Mass/Vol] 22 mg/dL High 7-18 [facility] Comment on above: Performed By: #### L 100.0100, L500.4050 ####[facility] [address] [place], [address] Consultation - Infectious Dx on 03-18-2024 Consultation - Infectious Dx Normal [facility] Consultation - Intensiviston 03-18-2024 Consultation - Catering Associate Normal [facility] RESPIRATORY PANEL MOLECULARo n 03-18-2024 RP PANEL Normal [facility] Comment on above: Performed By: #### M 100.638 ####[facility] [address] [place], [address] 12 Lead EKGon 03-17-2024 12 Lead EKG Normal [facility] CPK Total, Creatine Kinaseon 03-17-2024 CPK TOTAL 18 U/L Low 39-308 [facility] Comment on above: Performed By: #### L 500.4050, L501.3620 ####[facility] [address] [place], [address] Chest PA and Lateralon 03-17 Chest PA and Lateral Normal [facility] Comprehensive Metabolic Prof ilon 03-17-2024 Albumin [Mass/Vol] 3.2 g/dL Normal 3.2-5.0 [facility] Comment on above: Performed By: #### L 500.4050, L501.3620 ####[facility] [address] [place], [address] Albumin/Globulin [Mass ratio] 1.1 {ratio} Normal 0.9-2.4 [facility] Comment on above: Performed By: #### L 500.4050, L501.3620 ####[facility] [address] [place], [address] ALK P 77 U/L Normal 45-117 [facility] Comment on above: Performed By: #### L 500.4050, L501.3620 ####[facility] [address] [place], [address] ALT [Catalytic activity/Vol] 8 U/L Low 16-61 [facility] Comment on above: Performed By: #### L 500.4050, L501.3620 ####[facility] [address] [place], [address] AST [Catalytic activity/Vol] 9 U/L Low 15-37 [facility] Comment on above: Performed By: #### L 500.4050, L501.3620 ####[facility] [address] [place], [address] Bilirubin [Mass/Vol] 0.80 mg/dL Normal 0.20-1.00 [facility] Comment on above: Result Comment: For patients on eltrombopag therapy, use of Dimension [place] TBIL is not recommended. Performed By: #### L 500.4050, L501.3620 ####[facility] [address] [place], [address] BUN/CRE 14.6 RATIO Normal 10-20 [facility] Comment on above: Performed By: #### L 500.4050, L501.3620 ####[facility] [address] [place], [address] CA,Total 9.0 mg/dL Normal 8.5-10.1 [facility] Comment on above: Performed By: #### L 500.4050, L501.3620 ####[facility] [address] [place], [address] Chloride [Moles/Vol] 107 mmol/L Normal 98-107 [facility] Comment on above: Performed By: #### L 500.4050, L501.3620 ####[facility] [address] [place], [address] CO2 [Moles/Vol] 24.0 mmol/L Normal 21.0-32.0 [facility] Comment on above: Performed By: #### L 500.4050, L501.3620 ####[facility] [address] [place], [address] Creatinine [Mass/Vol] 1.85 mg/dL High 0.70-1.30 [facility] Comment on above: Result Comment: The validity of the calculated GFR GFRAA in patients over70 years has not been determined. Clinical correlation isessential. Performed By: #### L 500.4050, L501.3620 ####[facility] [address] [place], [address] ECRCL 40.48 ml/min Normal [facility] Comment on above: Performed By: #### L 500.4050, L501.3620 ####[facility] [address] [place], [address] EST GFR - AA 47 mL/min Low >60 [facility] Comment on above: Result Comment: Afri can [place] GFR Calc Performed By: #### L 500.4050, L501.3620 ####[facility] [address] [place], [address] GAP 7 Normal 5-15 [facility] Comment on above: Performed By: #### L 500.4050, L501.3620 ####[facility] [address] [place], [address] GFR/1.73 sq M.predicted among non-blacks MDRD (S/P/Bld) [Vol rate/Area] 39 mL/min/{1.73_m2} Low >60 [facility] Comment on above: Result Comment: Non- GFR Calc Performed By: #### L 500.4050, L501.3620 ####[facility] [address] [place], [address] Globulin (S) [Mass/Vol] 3.0 g/dL Normal 2.2-4.2 [facility] Comment on above: Performed By: #### L 500.4050, L501.3620 ####[facility] [address] [place], [address] Glucose [Mass/Vol] 147 mg/dL High 74-106 [facility] Comment on above: Result Comment: Fast ing Glucose result greater than or equal to 126 mg/dLsuggests DIABETES MELLITUS per A.D.A. criteria. Performed By: #### L 500.4050, L501.3620 ####[facility] [address] [place], [address] Potassium [Moles/Vol] 4.0 mmol/L Normal 3.5-5.1 [facility] Comment on above: Performed By: #### L 500.4050, L501.3620 ####[facility] [address] [place], [address] Sodium [Moles/Vol] 138 mmol/L Normal 136-145 [facility] Comment on above: Performed By: #### L 500.4050, L501.3620 ####[facility] [address] [place], [address] T PROT 6.2 g/dL Low 6.4-8.2 [facility] Comment on above: Performed By: #### L 500.4050, L501.3620 ####[facility] [address] [place], [address] Urea nitrogen [Mass/Vol] 27 mg/dL High 7-18 [facility] Comment on above: Performed By: #### L 500.4050, L501.3620 ####[facility] [address] [place], [address] Albumin [Mass/Vol] 3.4 g/dL Normal 3.2-5.0 [facility] Comment on above: Order Comment: 'TROP ' Serial specimen #1, #2 or #3: 1 Performed By: #### L 500.4050, L503.6005, L100.0100, L300.3900, L300.4310, L501.4020 ####[facility] [address] [place], [address] Albumin/Globulin [Mass ratio] 1.2 {ratio} Normal 0.9-2.4 [facility] Comment on above: Order Comment: 'TROP ' Serial specimen #1, #2 or #3: 1 Performed By: #### L 500.4050, L503.6005, L100.0100, L300.3900, L300.4310, L501.4020 ####[facility] [address] [place], [address] ALK P 78 U/L Normal 45-117 [facility] Comment on above: Order Comment: 'TROP ' Serial specimen #1, #2 or #3: 1 Performed By: #### L 500.4050, L503.6005, L100.0100, L300.3900, L300.4310, L501.4020 ####[facility] [address] [place], [address] ALT [Catalytic activity/Vol] 11 U/L Low 16-61 [facility] Comment on above: Order Comment: 'TROP ' Serial specimen #1, #2 or #3: 1 Performed By: #### L 500.4050, L503.6005, L100.0100, L300.3900, L300.4310, L501.4020 ####[facility] [address] [place], [address] AST [Catalytic activity/Vol] 6 U/L Low 15-37 [facility] Comment on above: Order Comment: 'TROP ' Serial specimen #1, #2 or #3: 1 Performed By: #### L 500.4050, L503.6005, L100.0100, L300.3900, L300.4310, L501.4020 ####[facility] [address] [place], [address] Bilirubin [Mass/Vol] 1.30 mg/dL High 0.20-1.00 [facility] Comment on above: Order Comment: 'TROP ' Serial specimen #1, #2 or #3: 1 Result Comment: For patients on eltrombopag therapy, use of Dimension [place] TBIL is not recommended. Performed By: #### L 500.4050, L503.6005, L100.0100, L300.3900, L300.4310, L501.4020 ####[facility] [address] [place], [address] BUN/CRE 14.4 RATIO Normal 10-20 [facility] Comment on above: Order Comment: 'TROP ' Serial specimen #1, #2 or #3: 1 Performed By: #### L 500.4050, L503.6005, L100.0100, L300.3900, L300.4310, L501.4020 ####[facility] [address] [place], [address] CA,Total 9.3 mg/dL Normal 8.5-10.1 [facility] Comment on above: Order Comment: 'TROP ' Serial specimen #1, #2 or #3: 1 Performed By: #### L 500.4050, L503.6005, L100.0100, L300.3900, L300.4310, L501.4020 ####[facility] [address] [place], [address] Chloride [Moles/Vol] 105 mmol/L Normal 98-107 [facility] Comment on above: Order Comment: 'TROP ' Serial specimen #1, #2 or #3: 1 Performed By: #### L 500.4050, L503.6005, L100.0100, L300.3900, L300.4310, L501.4020 ####[facility] [address] [place], [address] CO2 [Moles/Vol] 23.0 mmol/L Normal 21.0-32.0 [facility] Comment on above: Order Comment: 'TROP ' Serial specimen #1, #2 or #3: 1 Performed By: #### L 500.4050, L503.6005, L100.0100, L300.3900, L300.4310, L501.4020 ####[facility] [address] [place], [address] Creatinine [Mass/Vol] 1.94 mg/dL High 0.70-1.30 [facility] Comment on above: Order Comment: 'TROP ' Serial specimen #1, #2 or #3: 1 Result Comment: The validity of the calculated GFR GFRAA in patients over70 years has not been determined. Clinical correlation isessential. Performed By: #### L 500.4050, L503.6005, L100.0100, L300.3900, L300.4310, L501.4020 ####[facility] [address] [place], [address] ECRCL 38.60 ml/min Normal [facility] Comment on above: Order Comment: 'TROP ' Serial specimen #1, #2 or #3: 1 Performed By: #### L 500.4050, L503.6005, L100.0100, L300.3900, L300.4310, L501.4020 ####[facility] [address] [place], [address] EST GFR - AA 44 mL/min Low >60 [facility] Comment on above: Order Comment: 'TROP ' Serial specimen #1, #2 or #3: 1 Result Comment: Afri can Seneg[place]e GFR Calc Performed By: #### L 500.4050, L503.6005, L100.0100, L300.3900, L300.4310, L501.4020 ####[facility] [address] [place], [address] GAP 8 Normal 5-15 [facility] Comment on above: Order Comment: 'TROP ' Serial specimen #1, #2 or #3: 1 Performed By: #### L 500.4050, L503.6005, L100.0100, L300.3900, L300.4310, L501.4020 ####[facility] [address] [place], [address] GFR/1.73 sq M.predicted among non-blacks MDRD (S/P/Bld) [Vol rate/Area] 37 mL/min/{1.73_m2} Low >60 [facility] Comment on above: Order Comment: 'TROP ' Serial specimen #1, #2 or #3: 1 Result Comment: Non- GFR Calc Performed By: #### L 500.4050, L503.6005, L100.0100, L300.3900, L300.4310, L501.4020 ####[facility] [address] [place], [address] Globulin (S) [Mass/Vol] 2.8 g/dL Normal 2.2-4.2 [facility] Comment on above: Order Comment: 'TROP ' Serial specimen #1, #2 or #3: 1 Performed By: #### L 500.4050, L503.6005, L100.0100, L300.3900, L300.4310, L501.4020 ####[facility] [address] [place], [address] Glucose [Mass/Vol] 120 mg/dL High 74-106 [facility] Comment on above: Order Comment: 'TROP ' Serial specimen #1, #2 or #3: 1 Result Comment: Fast ing Glucose result from 100 to 125 mg/dLsuggests IMPAIRED HOMEOSTASIS per A.D.A. criteria. Performed By: #### L 500.4050, L503.6005, L100.0100, L300.3900, L300.4310, L501.4020 ####[facility] [address] [place], [address] Potassium [Moles/Vol] 3.9 mmol/L Normal 3.5-5.1 [facility] Comment on above: Order Comment: 'TROP ' Serial specimen #1, #2 or #3: 1 Performed By: #### L 500.4050, L503.6005, L100.0100, L300.3900, L300.4310, L501.4020 ####[facility] [address] [place], [address] Sodium [Moles/Vol] 136 mmol/L Normal 136-145 [facility] Comment on above: Order Comment: 'TROP ' Serial specimen #1, #2 or #3: 1 Performed By: #### L 500.4050, L503.6005, L100.0100, L300.3900, L300.4310, L501.4020 ####[facility] [address] [place], [address] T PROT 6.2 g/dL Low 6.4-8.2 [facility] Comment on above: Order Comment: 'TROP ' Serial specimen #1, #2 or #3: 1 Performed By: #### L 500.4050, L503.6005, L100.0100, L300.3900, L300.4310, L501.4020 ####[facility] [address] [place], [address] Urea nitrogen [Mass/Vol] 28 mg/dL High 7-18 [facility] Comment on above: Order Comment: 'TROP ' Serial specimen #1, #2 or #3: 1 Performed By: #### L 500.4050, L503.6005, L100.0100, L300.3900, L300.4310, L501.4020 ####[facility] [address] [place], [address] Emergency Department Summary on 03-17-2024 Emergency Department Summary Normal [facility] Gram Stainon 03-17-2024 GS Acceptable Specimen? Yes (<25 Epithelial cells per/lpf) Gram Stain 2+ White Blood Cells 3+ Gram negative cocco bacillus Rare Gram positive cocci Normal [facility] Comment on above: Performed By: #### M 100.678, M100.2400, M100.2000 ####[facility] [address] [place], [address] H AND P Exam - Hospitaliston 03-17-2024 H&P Exam - Hospitalist Normal [facility] L501.4020on 03-17-2024 TROPONIN-I HS 9 pg/mL Normal 3.0-78.0 [facility] Comment on above: Order Comment: 'TROP ' Serial specimen #1, #2 or #3: 1 Result Comment: Susan conway Note: New Test Units and Gender Specific Reference Ranges. For more information see Policy Stat Procedure [place] High Sensitivity Troponin (TNIH) and attachments. Performed By: #### L 500.4050, L503.6005, L100.0100, L300.3900, L300.4310, L501.4020 ####[facility] [address] [place], [address] Lactic Acidon 03-17-2024 Lactate [Moles/Vol] 2.0 mmol/L Normal 0.4-1.9 [facility] Comment on above: Result Comment: Crit ical Result(s) Called at: 16:12:47 03/17/2024 by:CAROLEE CHAVEZ TO WES NIELSEN. Results read back by same. Performed By: #### L 503.6005 ####[facility] [address] [place], [address] Lactate [Moles/Vol] 2.5 mmol/L Invalid Interpretation Code 0.4-1.9 [facility] Comment on above: Order Comment: Y Result Comment: Crit ical Result(s) Called at: 11:17:55 03/17/2024 by:CAROLEE CHAVEZ TO MEHUL VALENTINE. Results read back bydc. Performed By: #### L 500.4050, L503.6005, L100.0100, L300.3900, L300.4310, L501.4020 ####[facility] [address] [place], [address] Legionella Antigen Urineon 1 05-18-2023 LEGU Normal [facility] Comment on above: Performed By: #### M 300.4500, M300.4600 ####[facility] [address] [place], [address] M100.678on 03-17-2024 M100.678 Pending SARS-CoV-2 (COVID 19) Negative INFLUENZA A Negative INFLUENZA B Negative RSV PCR Negative Normal [facility] Comment on above: Performed By: #### M 100.678, M100.2400, M100.2000 ####[facility] [address] [place], [address] Partial Thromboplast Timeon 03-17-2024 aPTT Coag (Bld) [Time] 35.3 s Normal 24.1-36.2 [facility] Comment on above: Performed By: #### L 500.4050, L503.6005, L100.0100, L300.3900, L300.4310, L501.4020 ####[facility] [address] [place], [address] Prothrombin Time w/INRon INR Coag (PPP) [Relative time] 1.7 {INR} Normal [facility] Comment on above: Performed By: #### L 500.4050, L503.6005, L100.0100, L300.3900, L300.4310, L501.4020 ####[facility] [address] [place], [address] PT Coag (PPP) [Time] 20.3 s High 11.7-14.9 [facility] Comment on above: Performed By: #### L 500.4050, L503.6005, L100.0100, L300.3900, L300.4310, L501.4020 ####[facility] [address] [place], [address] Strep pneumoniae Antig(UR,CS F)on 03-17-2024 STPAG Normal [facility] Comment on above: Performed By: #### M 300.4500, M300.4600 ####[facility] [address] [place], [address] Surgery Visit Reporton 03-17 Surgery Visit Report Normal [facility] Urinalysis, Completeon 03-17 BACTERIA 2+ /hpf Normal None Seen [facility] Comment on above: Order Comment: LUIS ALFREDO CTOR TO SPECIFY Performed By: #### L 400.0001, M100.2200 ####[facility] [address] [place], [address] CAST,HYALINE 0-5 SEEN Normal 0-5 [facility] Comment on above: Order Comment: LUIS ALFREDO CTOR TO SPECIFY Performed By: #### L 400.0001, M100.2200 ####[facility] [address] [place], [address] EPI,SQUAMOUS 0-5 SEEN Normal 0-5 [facility] Comment on above: Order Comment: LUIS ALFREDO CTOR TO SPECIFY Performed By: #### L 400.0001, M1.0 ####[facility] [address] [place], [address] WBC 0-5 SEEN Normal 0-5 [facility] Comment on above: Order Comment: LUIS ALFREDO CTOR TO SPECIFY Performed By: #### L 400.0001, M100.2200 ####[facility] [address] [place], [address] BILIRUBIN URINE Negative Normal Negative [facility] Comment on above: Order Comment: LUIS ALFREDO CTOR TO SPECIFY Performed By: #### L 400.0001, M100.2200 ####[facility] [address] [place], [address] Clarity (U) Sl. Cloudy Normal Clear [facility] Comment on above: Order Comment: LUIS ALFREDO CTOR TO SPECIFY Performed By: #### L 400.0001, M100.2200 ####[facility] [address] [place], [address] Color (U) Yellow Normal Yellow [facility] Comment on above: Order Comment: LUIS ALFREDO CTOR TO SPECIFY Performed By: #### L 400.0001, ####[facility] [address] [place], [address] GLUCOSE, UR Normal Normal Normal [facility] Comment on above: Order Comment: LUIS ALFREDO CTOR TO SPECIFY Performed By: #### L 400.0001, ####[facility] [address] [place], [address] KETONE UR 5 mg/dl Abnormal Negative [facility] Comment on above: Order Comment: LUIS ALFREDO CTOR TO SPECIFY Performed By: #### L 400.0001, ####[facility] [address] [place], [address] LEUK ESTERASE 25 /ul Abnormal Negative [facility] Comment on above: Order Comment: LUIS ALFREDO CTOR TO SPECIFY Performed By: #### L 400.0001, ####[facility] [address] [place], [address] Nitrite Ql (U) Negative Normal Negative [facility] Comment on above: Order Comment: LUIS ALFREDO CTOR TO SPECIFY Performed By: #### L 400.0001, ####[facility] [address] [place], [address] OCCULT BLOOD-UR Negative Normal Negative [facility] Comment on above: Order Comment: LUIS ALFREDO CTOR TO SPECIFY Performed By: #### L 400.0001, ####[facility] [address] [place], [address] pH UR 6.5 Normal 5.0 - 8.0 [facility] Comment on above: Order Comment: LUIS ALFREDO CTOR TO SPECIFY Performed By: #### L 400.0001, ####[facility] [address] [place], [address] PROT DIPSTX 30 mg/dl Abnormal Negative [facility] Comment on above: Order Comment: LUIS ALFREDO CTOR TO SPECIFY Performed By: #### L 400.0001, M100.2200 ####[facility] [address] [place], [address] SP.GR. DIPSTX 1.010 Normal 1.002-1.030 [facility] Comment on above: Order Comment: LUIS ALFREDO CTOR TO SPECIFY Performed By: #### L 400.0001, M100.2200 ####[facility] [address] [place], [address] UROBILI 1 mg/dl Abnormal Normal [facility] Comment on above: Order Comment: LUISA LFREDO CTOR TO SPECIFY Performed By: #### L 400.0001, M1.0 ####[facility] [address] [place], [address] Mucus Ql (Urine sed) 0 SEEN Normal [facility] Comment on above: Order Comment: LUIS ALFREDO CTOR TO SPECIFY Performed By: #### L 400.0001, M1.0 ####[facility] [address] [place], [address] RBC 0 SEEN Normal 0-5 [facility] Comment on above: Order Comment: LUIS ALFREDO CTOR TO SPECIFY Performed By: #### L 400.0001, M100.2200 ####[facility] [address] [place], [address] Basic Metabolic Profile (BMP )on 03-12-2024 BUN Normal 7-18 [facility] Comment on above: Result Comment: Canc elled via OM: Order cancelled - Patient discharged Performed By: #### L 500.2500, L100.0100 ####[facility] [address] [place], [address] BUN/CRE Normal 10-20 [facility] Comment on above: Result Comment: Canc elled via OM: Order cancelled - Patient discharged Performed By: #### L 500.2500, L100.0100 ####[facility] [address] [place], [address] CA,Total Normal 8.5-10.1 [facility] Comment on above: Result Comment: Canc elled via OM: Order cancelled - Patient discharged Performed By: #### L 500.2500, L100.0100 ####[facility] [address] [place], [address] CL Normal 98-107 [facility] Comment on above: Result Comment: Canc elled via OM: Order cancelled - Patient discharged Performed By: #### L 500.2500, L100.0100 ####[facility] [address] [place], [address] CO2 Normal 21.0-32.0 [facility] Comment on above: Result Comment: Canc elled via OM: Order cancelled - Patient discharged Performed By: #### L 500.2500, L100.0100 ####[facility] [address] [place], [address] CREAT,SERUM Normal 0.70-1.30 [facility] Comment on above: Result Comment: Canc elled via OM: Order cancelled - Patient discharged Performed By: #### L 500.2500, L100.0100 ####[facility] [address] [place], [address] EST GFR Normal >60 [facility] Comment on above: Result Comment: Canc elled via OM: Order cancelled - Patient discharged Performed By: #### L 500.2500, L100.0100 ####[facility] [address] [place], [address] EST GFR - AA Normal >60 [facility] Comment on above: Result Comment: Canc elled via OM: Order cancelled - Patient discharged Performed By: #### L 500.2500, L100.0100 ####[facility] [address] [place], [address] GAP Normal 5-15 [facility] Comment on above: Result Comment: Canc elled via OM: Order cancelled - Patient discharged Performed By: #### L 500.2500, L100.0100 ####[facility] [address] [place], [address] GLU Normal 74-106 [facility] Comment on above: Result Comment: Canc elled via OM: Order cancelled - Patient discharged Performed By: #### L 500.2500, L100.0100 ####[facility] [address] [place], [address] Potassium Normal 3.5-5.1 [facility] Comment on above: Result Comment: Canc elled via OM: Order cancelled - Patient discharged Performed By: #### L 500.2500, L100.0100 ####[facility] [address] [place], [address] Basic Metabolic Profile (BMP) Normal 136-145 [facility] Comment on above: Result Comment: Canc elled via OM: Order cancelled - Patient discharged Performed By: #### L 500.2500, L100.0100 ####[facility] [address] [place], [address] CBC W/Diff, Automatedon 11-2 Absolute Neut Normal 2.0-7.7 [facility] Comment on above: Result Comment: Canc elled via OM: Order cancelled - Patient discharged Performed By: #### L 500.2500, L100.0100 ####[facility] [address] [place], [address] HCT Normal 40-54 [facility] Comment on above: Result Comment: Canc elled via OM: Order cancelled - Patient discharged Performed By: #### L 500.2500, L100.0100 ####[facility] [address] [place], [address] HGB Normal 13.0-16.5 [facility] Comment on above: Result Comment: Canc elled via OM: Order cancelled - Patient discharged Performed By: #### L 500.2500, L100.0100 ####[facility] [address] [place], [address] MCH Normal 27.0-32.0 [facility] Comment on above: Result Comment: Canc elled via OM: Order cancelled - Patient discharged Performed By: #### L 500.2500, L100.0100 ####[facility] [address] [place], [address] MCHC Normal 32-36 [facility] Comment on above: Result Comment: Canc elled via OM: Order cancelled - Patient discharged Performed By: #### L 500.2500, L100.0100 ####[facility] [address] [place], [address] MCV Normal 80-94 [facility] Comment on above: Result Comment: Canc elled via OM: Order cancelled - Patient discharged Performed By: #### L 500.2500, L100.0100 ####[facility] [address] [place], [address] NEUT% Normal 47-70 [facility] Comment on above: Result Comment: Canc elled via OM: Order cancelled - Patient discharged Performed By: #### L 500.2500, L100.0100 ####[facility] [address] [place], [address] PLT Normal 150-450 [facility] Comment on above: Result Comment: Canc elled via OM: Order cancelled - Patient discharged Performed By: #### L 500.2500, L100.0100 ####[facility] [address] [place], [address] RBC Normal 4.6-6.2 [facility] Comment on above: Result Comment: Canc elled via OM: Order cancelled - Patient discharged Performed By: #### L 500.2500, L100.0100 ####[facility] [address] [place], [address] RDW CV Normal 11.6-14.6 [facility] Comment on above: Result Comment: Canc elled via OM: Order cancelled - Patient discharged Performed By: #### L 500.2500, L100.0100 ####[facility] [address] [place], [address] RDW SD Normal 35.1-43.9 [facility] Comment on above: Result Comment: Canc elled via OM: Order cancelled - Patient discharged Performed By: #### L 500.2500, L100.0100 ####[facility] [address] [place], [address] WBC Normal 4.4-11.0 [facility] Comment on above: Result Comment: Canc elled via OM: Order cancelled - Patient discharged Performed By: #### L 500.2500, L100.0100 ####[facility] [address] [place], [address] Basic Metabolic Profile (BMP )on 03-05-2024 BUN Normal 7-18 [facility] Comment on above: Result Comment: Canc elled via OM: Order cancelled - Patient discharged Performed By: #### L 100.0100, L500.2500 ####[facility] [address] [place], [address] BUN/CRE Normal 10-20 [facility] Comment on above: Result Comment: Canc elled via OM: Order cancelled - Patient discharged Performed By: #### L 100.0100, L500.2500 ####[facility] [address] [place], [address] CA,Total Normal 8.5-10.1 [facility] Comment on above: Result Comment: Canc elled via OM: Order cancelled - Patient discharged Performed By: #### L 100.0100, L500.2500 ####[facility] [address] [place], [address] CL Normal 98-107 [facility] Comment on above: Result Comment: Canc elled via OM: Order cancelled - Patient discharged Performed By: #### L 100.0100, L500.2500 ####[facility] [address] [place], [address] CO2 Normal 21.0-32.0 [facility] Comment on above: Result Comment: Canc elled via OM: Order cancelled - Patient discharged Performed By: #### L 100.0100, L500.2500 ####[facility] [address] [place], [address] CREAT,SERUM Normal 0.70-1.30 [facility] Comment on above: Result Comment: Canc elled via OM: Order cancelled - Patient discharged Performed By: #### L 100.0100, L500.2500 ####[facility] [address] [place], [address] EST GFR Normal >60 [facility] Comment on above: Result Comment: Canc elled via OM: Order cancelled - Patient discharged Performed By: #### L 100.0100, L500.2500 ####[facility] [address] [place], [address] EST GFR - AA Normal >60 [facility] Comment on above: Result Comment: Canc elled via OM: Order cancelled - Patient discharged Performed By: #### L 100.0100, L500.2500 ####[facility] [address] [place], [address] GAP Normal 5-15 [facility] Comment on above: Result Comment: Canc elled via OM: Order cancelled - Patient discharged Performed By: #### L 100.0100, L500.2500 ####[facility] [address] [place], [address] GLU Normal 74-106 [facility] Comment on above: Result Comment: Canc elled via OM: Order cancelled - Patient discharged Performed By: #### L 100.0100, L500.2500 ####[facility] [address] [place], [address] Potassium Normal 3.5-5.1 [facility] Comment on above: Result Comment: Canc elled via OM: Order cancelled - Patient discharged Performed By: #### L 100.0100, L500.2500 ####[facility] [address] [place], [address] Basic Metabolic Profile (BMP) Normal 136-145 [facility] [facility] Comment on above: Result Comment: Canc elled via OM: Order cancelled - Patient discharged Performed By: #### L 100.0100, L500.2500 ####[facility] [address] [place], [address] CBC W/Diff, Automatedon 11-2 -2023 Absolute Neut Normal 2.0-7.7 [facility] Comment on above: Result Comment: Canc elled via OM: Order cancelled - Patient discharged Performed By: #### L 100.0100, L500.2500 ####[facility] [address] [place], [address] HCT Normal 40-54 [facility] Comment on above: Result Comment: Canc elled via OM: Order cancelled - Patient discharged Performed By: #### L 100.0100, L500.2500 ####[facility] [address] [place], [address] HGB Normal 13.0-16.5 [facility] Comment on above: Result Comment: Canc elled via OM: Order cancelled - Patient discharged Performed By: #### L 100.0100, L500.2500 ####[facility] [address] [place], [address] MCH Normal 27.0-32.0 [facility] Comment on above: Result Comment: Canc elled via OM: Order cancelled - Patient discharged Performed By: #### L 100.0100, L500.2500 ####[facility] [address] [place], [address] MCHC Normal 32-36 [facility] Comment on above: Result Comment: Canc elled via OM: Order cancelled - Patient discharged Performed By: #### L 100.0100, L500.2500 ####[facility] [address] [place], [address] MCV Normal 80-94 [facility] Comment on above: Result Comment: Canc elled via OM: Order cancelled - Patient discharged Performed By: #### L 100.0100, L500.2500 ####[facility] [address] [place], [address] NEUT% Normal 47-70 [facility] Comment on above: Result Comment: Canc elled via OM: Order cancelled - Patient discharged Performed By: #### L 100.0100, L500.2500 ####[facility] [address] [place], [address] PLT Normal 150-450 [facility] Comment on above: Result Comment: Canc elled via OM: Order cancelled - Patient discharged Performed By: #### L 100.0100, L500.2500 ####[facility] [address] [place], [address] RBC Normal 4.6-6.2 [facility] Comment on above: Result Comment: Canc elled via OM: Order cancelled - Patient discharged Performed By: #### L 100.0100, L500.2500 ####[facility] [address] [place], [address] RDW CV Normal 11.6-14.6 [facility] Comment on above: Result Comment: Canc elled via OM: Order cancelled - Patient discharged Performed By: #### L 100.0100, L500.2500 ####[facility] [address] [place], [address] RDW SD Normal 35.1-43.9 [facility] Comment on above: Result Comment: Canc elled via OM: Order cancelled - Patient discharged Performed By: #### L 100.0100, L500.2500 ####[facility] [address] [place], [address] WBC Normal 4.4-11.0 [facility] Comment on above: Result Comment: Canc elled via OM: Order cancelled - Patient discharged Performed By: #### L 100.0100, L500.2500 ####[facility] [address] [place], [address] Basic Metabolic Profile (BMP )on 02-27-2024 BUN Normal 7-18 [facility] Comment on above: Result Comment: Canc elled via OM: Order cancelled - Patient discharged Performed By: #### L 500.2500, L100.0100 ####[facility] [address] [place], [address] BUN/CRE Normal 10-20 [facility] Comment on above: Result Comment: Canc elled via OM: Order cancelled - Patient discharged Performed By: #### L 500.2500, L100.0100 ####[facility] [address] [place], [address] CA,Total Normal 8.5-10.1 [facility] Comment on above: Result Comment: Canc elled via OM: Order cancelled - Patient discharged Performed By: #### L 500.2500, L100.0100 ####[facility] [address] [place], [address] CL Normal 98-107 [facility] Comment on above: Result Comment: Canc elled via OM: Order cancelled - Patient discharged Performed By: #### L 500.2500, L100.0100 ####[facility] [address] [place], [address] CO2 Normal 21.0-32.0 [facility] Comment on above: Result Comment: Canc elled via OM: Order cancelled - Patient discharged Performed By: #### L 500.2500, L100.0100 ####[facility] [address] [place], [address] CREAT,SERUM Normal 0.70-1.30 [facility] Comment on above: Result Comment: Canc elled via OM: Order cancelled - Patient discharged Performed By: #### L 500.2500, L100.0100 ####[facility] [address] [place], [address] EST GFR Normal >60 [facility] Comment on above: Result Comment: Canc elled via OM: Order cancelled - Patient discharged Performed By: #### L 500.2500, L100.0100 ####[facility] [address] [place], [address] EST GFR - AA Normal >60 [facility] Comment on above: Result Comment: Canc elled via OM: Order cancelled - Patient discharged Performed By: #### L 500.2500, L100.0100 ####[facility] [address] [place], [address] GAP Normal 5-15 [facility] Comment on above: Result Comment: Canc elled via OM: Order cancelled - Patient discharged Performed By: #### L 500.2500, L100.0100 ####[facility] [address] [place], [address] GLU Normal 74-106 [facility] Comment on above: Result Comment: Canc elled via OM: Order cancelled - Patient discharged Performed By: #### L 500.2500, L100.0100 ####[facility] [address] [place], [address] Potassium Normal 3.5-5.1 [facility] Comment on above: Result Comment: Canc elled via OM: Order cancelled - Patient discharged Performed By: #### L 500.2500, L100.0100 ####[facility] [address] [place], [address] Basic Metabolic Profile (BMP) Normal 136-145 [facility] Comment on above: Result Comment: Canc elled via OM: Order cancelled - Patient discharged Performed By: #### L 500.2500, L100.0100 ####[facility] [address] [place], [address] CBC W/Diff, Automatedon 11-1 Absolute Neut Normal 2.0-7.7 [facility] Comment on above: Result Comment: Canc elled via OM: Order cancelled - Patient discharged Performed By: #### L 500.2500, L100.0100 ####[facility] [address] [place], [address] HCT Normal 40-54 [facility] Comment on above: Result Comment: Canc elled via OM: Order cancelled - Patient discharged Performed By: #### L 500.2500, L100.0100 ####[facility] [address] [place], [address] HGB Normal 13.0-16.5 [facility] Comment on above: Result Comment: Canc elled via OM: Order cancelled - Patient discharged Performed By: #### L 500.2500, L100.0100 ####[facility] [address] [place], [address] MCH Normal 27.0-32.0 [facility] Comment on above: Result Comment: Canc elled via OM: Order cancelled - Patient discharged Performed By: #### L 500.2500, L100.0100 ####[facility] [address] [place], [address] MCHC Normal 32-36 [facility] Comment on above: Result Comment: Canc elled via OM: Order cancelled - Patient discharged Performed By: #### L 500.2500, L100.0100 ####[facility] [address] [place], [address] MCV Normal 80-94 [facility] Comment on above: Result Comment: Canc elled via OM: Order cancelled - Patient discharged Performed By: #### L 500.2500, L100.0100 ####[facility] [address] [place], [address] NEUT% Normal 47-70 [facility] Comment on above: Result Comment: Canc elled via OM: Order cancelled - Patient discharged Performed By: #### L 500.2500, L100.0100 ####[facility] [address] [place], [address] PLT Normal 150-450 [facility] Comment on above: Result Comment: Canc elled via OM: Order cancelled - Patient discharged Performed By: #### L 500.2500, L100.0100 ####[facility] [address] [place], [address] RBC Normal 4.6-6.2 [facility] Comment on above: Result Comment: Canc elled via OM: Order cancelled - Patient discharged Performed By: #### L 500.2500, L100.0100 ####[facility] [address] [place], [address] RDW CV Normal 11.6-14.6 [facility] Comment on above: Result Comment: Canc elled via OM: Order cancelled - Patient discharged Performed By: #### L 500.2500, L100.0100 ####[facility] [address] [place], [address] RDW SD Normal 35.1-43.9 [facility] Comment on above: Result Comment: Canc elled via OM: Order cancelled - Patient discharged Performed By: #### L 500.2500, L100.0100 ####[facility] [address] [place], [address] WBC Normal 4.4-11.0 [facility] Comment on above: Result Comment: Canc elled via OM: Order cancelled - Patient discharged Performed By: #### L 500.2500, L100.0100 ####[facility] [address] [place], [address] Forearm 2 Viewson 02-27-2024 Forearm 2 Views Normal [facility] L/S Spine Min 4 Viewson 02-12 L/S Spine Min 4 Views Normal [facility] Inital Evaluation (1) - PTon 02-24-2024 Inital Evaluation (1) - PT Normal [facility] Respiratory Cultureon 2023 RESPC Normal [facility] Comment on above: Performed By: #### M 100.2000, M100.2400 ####[facility] [address] [place], [address] Basic Metabolic Profile (BMP )on 02-20-2024 BUN/CRE 20.4 RATIO High 10-20 [facility] Comment on above: Performed By: #### L 500.2500, L100.0100 ####[facility] [address] [place], [address] CA,Total 9.1 mg/dL Normal 8.5-10.1 [facility] Comment on above: Performed By: #### L 500.2500, L100.0100 ####[facility] [address] [place], [address] Chloride [Moles/Vol] 116 mmol/L High 98-107 [facility] Comment on above: Performed By: #### L 500.2500, L100.0100 ####[facility] [address] [place], [address] CO2 [Moles/Vol] 19.0 mmol/L Low 21.0-32.0 [facility] Comment on above: Performed By: #### L 500.2500, L100.0100 ####[facility] [address] [place], [address] Creatinine [Mass/Vol] 1.67 mg/dL High 0.70-1.30 [facility] Comment on above: Result Comment: The validity of the calculated GFR GFRAA in patients over70 years has not been determined. Clinical correlation isessential. Performed By: #### L 500.2500, L100.0100 ####[facility] [address] [place], [address] ECRCL 41.16 ml/min Normal [facility] Comment on above: Performed By: #### L 500.2500, L100.0100 ####[facility] [address] [place], [address] EST GFR - AA 53 mL/min Low >60 [facility] Comment on above: Result Comment: Afri can [place]egalese GFR Calc Performed By: #### L 500.2500, L100.0100 ####[facility] [address] [place], [address] GAP 7 Normal 5-15 [facility] Comment on above: Performed By: #### L 500.2500, L100.0100 ####[facility] [address] [place], [address] GFR/1.73 sq M.predicted among non-blacks MDRD (S/P/Bld) [Vol rate/Area] 43 mL/min/{1.73_m2} Low >60 [facility] Comment on above: Result Comment: Non- GFR Calc Performed By: #### L 500.2500, L100.0100 ####[facility] [address] [place], [address] Glucose [Mass/Vol] 92 mg/dL Normal 74-106 [facility] Comment on above: Performed By: #### L 500.2500, L100.0100 ####[facility] [address] [place], [address] Potassium [Moles/Vol] 4.6 mmol/L Normal 3.5-5.1 [facility] Comment on above: Performed By: #### L 500.2500, L100.0100 ####[facility] [address] [place], [address] Sodium [Moles/Vol] 142 mmol/L Normal 136-145 [facility] Comment on above: Performed By: #### L 500.2500, L100.0100 ####[facility] [address] [place], [address] Urea nitrogen [Mass/Vol] 34 mg/dL High 7-18 [facility] Comment on above: Performed By: #### L 500.2500, L100.0100 ####[facility] [address] [place], [address] CBC W/Diff, Automatedon 11-0 PATH REV Reviewed Normal [facility] Comment on above: Result Comment: Abso lute lymphocytosis suggestive of low grade lympho-proliferative disorder.Clinical correlation is necessary.Macrocytic anemia.Clinical correlation necessary.Prashanth Machado M.D. 02/20/24 AMENDED REPORT 02/20/24 1446 PATH REV previously reported as: Skye archuleta Performed By: #### L 500.2500, L100.0100 ####[facility] [address] [place], [address] Gram Stainon 02-18-2024 GS List Antibiotics [place] t 48 Hours? Flagyl, Omnicef Acceptable Specimen? Yes (<25 Epithelial cells per/lpf) Gram Stain 3+ Red Blood Cells Rare White Blood Cells 2+ Gram positive cocci in clusters Normal [facility] Comment on above: Performed By: #### M 100.2000, M100.2400 ####[facility] [address] [place], [address] CBC W/Diff, Automatedon 11- PATH REV Reviewed Normal [facility] Comment on above: Result Comment: Abso lute lymphocytosis suggestive of low grade lympho-proliferative disorder.Clinical correlation is necessary.Macrocytic anemia.Prashanth Machado M.D. 02/16/24 AMENDED REPORT 02/16/24 1419 PATH REV previously reported as: August Performed By: #### L 500.4100, L500.2500, L100.0100 ####[facility] [address] [place], [address] Basic Metabolic Profile (BMP )on 02-13-2024 BUN/CRE 18.7 RATIO Normal 10-20 [facility] Comment on above: Performed By: #### L 500.4100, L500.2500, L100.0100 ####[facility] [address] [place], [address] CA,Total 9.4 mg/dL Normal 8.5-10.1 [facility] Comment on above: Performed By: #### L 500.4100, L500.2500, L100.0100 ####[facility] [address] [place], [address] Chloride [Moles/Vol] 113 mmol/L High 98-107 [facility] Comment on above: Performed By: #### L 500.4100, L500.2500, L100.0100 ####[facility] [address] [place], [address] CO2 [Moles/Vol] 20.0 mmol/L Low 21.0-32.0 [facility] Comment on above: Performed By: #### L 500.4100, L500.2500, L100.0100 ####[facility] [address] [place], [address] Creatinine [Mass/Vol] 1.82 mg/dL High 0.70-1.30 [facility] Comment on above: Result Comment: The validity of the calculated GFR GFRAA in patients over70 years has not been determined. Clinical correlation isessential. Performed By: #### L 500.4100, L500.2500, L100.0100 ####[facility] [address] [place], [address] ECRCL 37.77 ml/min Normal [facility] Comment on above: Performed By: #### L 500.4100, L500.2500, L100.0100 ####[facility] [address] [place], [address] EST GFR - AA 48 mL/min Low >60 [facility] Comment on above: Result Comment: Afri can [place] GFR Calc Performed By: #### L 500.4100, L500.2500, L100.0100 ####[facility] [address] [place], [address] GAP 7 Normal 5-15 [facility] Comment on above: Performed By: #### L 500.4100, L500.2500, L100.0100 ####[facility] [address] [place], [address] GFR/1.73 sq M.predicted among non-blacks MDRD (S/P/Bld) [Vol rate/Area] 39 mL/min/{1.73_m2} Low >60 [facility] Comment on above: Result Comment: Non- GFR Calc Performed By: #### L 500.4100, L500.2500, L100.0100 ####[facility] [address] [place], [address] Glucose [Mass/Vol] 98 mg/dL Normal 74-106 [facility] Comment on above: Performed By: #### L 500.4100, L500.2500, L100.0100 ####[facility] [address] [place], [address] Potassium [Moles/Vol] 4.5 mmol/L Normal 3.5-5.1 [facility] Comment on above: Performed By: #### L 500.4100, L500.2500, L100.0100 ####[facility] [address] [place], [address] Sodium [Moles/Vol] 140 mmol/L Normal 136-145 [facility] Comment on above: Performed By: #### L 500.4100, L500.2500, L100.0100 ####[facility] [address] [place], [address] Urea nitrogen [Mass/Vol] 34 mg/dL High 7-18 [facility] Comment on above: Performed By: #### L 500.4100, L500.2500, L100.0100 ####[facility] [address] [place], [address] CBC W/Diff, Automatedon 11-0 PATH REV Reviewed Normal [facility] Comment on above: Result Comment: Abso lute lymphocytosis suggestive of low grade lympho-proliferative disorder.Clinical correlation is necessary.Macrocytic anemia.Thrombocytosis.Prashanth Machado M.D. 02/13/24 AMENDED REPORT 02/13/24 1440 PATH REV previously reported as: August kathe Performed By: #### L 100.0100, L100.9950, L500.4050, L503.6550, L503.6030 ####[facility] [address] [place], [address] Lipid Profileon 02-13-2024 Cholesterol [Mass/Vol] 102 mg/dL Normal 200 [facility] Comment on above: Result Comment: <200 mg/dL Desirable 200-240 mg/dL Borderline >240 mg/dL High Risk Performed By: #### L 500.4100, L500.2500, L100.0100 ####[facility] [address] [place], [address] Cholesterol in HDL [Mass/Vol] 43 mg/dL Normal [facility] Comment on above: Result Comment: The drugs N-Acetylcysteine and Metamizole may falselydepress this assay. Reference Range HDL <40 mg/dL Low HDL Cholesterol HDL >or= 60 mg/dL High HDL Cholesterol Performed By: #### L 500.4100, L500.2500, L100.0100 ####[facility] [address] [place], [address] Cholesterol in LDL [Mass/Vol] 30 mg/dL Normal 0-130 [facility] Comment on above: Performed By: #### L 500.4100, L500.2500, L100.0100 ####[facility] [address] [place], [address] Cholesterol in VLDL [Mass/Vol] 29 mg/dL Normal 5-40 [facility] Comment on above: Performed By: #### L 500.4100, L500.2500, L100.0100 ####[facility] [address] [place], [address] Triglyceride [Mass/Vol] 144 mg/dL Normal [facility] Comment on above: Result Comment: The drugs N-Acetylcysteine and Metamizole may falselydepress this assay.Serum Triglycerides Reference Interval Normal <150 mg/dL Borderline high 150 - 199 mg/dL High 200 - 499 mg/dL Very High > or = 500 mg/dL Performed By: #### L 500.4100, L500.2500, L100.0100 ####[facility] [address] [place], [address] Comprehensive Metabolic [facility] 02-12-2024 Albumin [Mass/Vol] 3.1 g/dL Low 3.2-5.0 [facility] Comment on above: Performed By: #### L 100.0100, L100.9950, L500.4050, L503.6550, L503.6030 ####[facility] [address] [place], [address] Albumin/Globulin [Mass ratio] 0.9 {ratio} Normal 0.9-2.4 [facility] Comment on above: Performed By: #### L 100.0100, L100.9950, L500.4050, L503.6550, L503.6030 ####[facility] [address] [place], [address] ALK P 119 U/L High 45-117 [facility] Comment on above: Performed By: #### L 100.0100, L100.9950, L500.4050, L503.6550, L503.6030 ####[facility] [address] [place], [address] ALT [Catalytic activity/Vol] 15 U/L Low 16-61 [facility] Comment on above: Performed By: #### L 100.0100, L100.9950, L500.4050, L503.6550, L503.6030 ####[facility] [address] [place], [address] AST [Catalytic activity/Vol] 10 U/L Low 15-37 [facility] Comment on above: Performed By: #### L 100.0100, L100.9950, L500.4050, L503.6550, L503.6030 ####[facility] [address] [place], [address] Bilirubin [Mass/Vol] 0.30 mg/dL Normal 0.20-1.00 [facility] Comment on above: Result Comment: For patients on eltrombopag therapy, use of Dimension [place] TBIL is not recommended. Performed By: #### L 100.0100, L100.9950, L500.4050, L503.6550, L503.6030 ####[facility] [address] [place], [address] BUN/CRE 15.9 RATIO Normal 10-20 [facility] Comment on above: Performed By: #### L 100.0100, L100.9950, L500.4050, L503.6550, L503.6030 ####[facility] [address] [place], [address] CA,Total 9.7 mg/dL Normal 8.5-10.1 [facility] Comment on above: Performed By: #### L 100.0100, L100.9950, L500.4050, L503.6550, L503.6030 ####[facility] [address] [place], [address] Chloride [Moles/Vol] 109 mmol/L High 98-107 [facility] Comment on above: Performed By: #### L 100.0100, L100.9950, L500.4050, L503.6550, L503.6030 ####[facility] [address] [place], [address] CO2 [Moles/Vol] 20.0 mmol/L Low 21.0-32.0 [facility] Comment on above: Performed By: #### L 100.0100, L100.9950, L500.4050, L503.6550, L503.6030 ####[facility] [address] [place], [address] Creatinine [Mass/Vol] 1.95 mg/dL High 0.70-1.30 [facility] Comment on above: Result Comment: The validity of the calculated GFR GFRAA in patients over70 years has not been determined. Clinical correlation isessential. Performed By: #### L 100.0100, L100.9950, L500.4050, L503.6550, L503.6030 ####[facility] [address] [place], [address] ECRCL 39.43 ml/min Normal [facility] Comment on above: Performed By: #### L 100.0100, L100.9950, L500.4050, L503.6550, L503.6030 ####[facility] [address] [place], [address] EST GFR - AA 44 mL/min Low >60 [facility] Comment on above: Result Comment: Afri can [place] GFR Calc Performed By: #### L 100.0100, L100.9950, L500.4050, L503.6550, L503.6030 ####[facility] [address] [place], [address] GAP 8 Normal 5-15 [facility] Comment on above: Performed By: #### L 100.0100, L100.9950, L500.4050, L503.6550, L503.6030 ####[facility] [address] [place], [address] GFR/1.73 sq M.predicted among non-blacks MDRD (S/P/Bld) [Vol rate/Area] 36 mL/min/{1.73_m2} Low >60 [facility] Comment on above: Result Comment: Non- GFR Calc Performed By: #### L 100.0100, L100.9950, L500.4050, L503.6550, L503.6030 ####[facility] [address] [place], [address] Globulin (S) [Mass/Vol] 3.5 g/dL Normal 2.2-4.2 [facility] Comment on above: Performed By: #### L 100.0100, L100.9950, L500.4050, L503.6550, L503.6030 ####[facility] [address] [place], [address] Glucose [Mass/Vol] 113 mg/dL High 74-106 [facility] Comment on above: Result Comment: Fast ing Glucose result from 100 to 125 mg/dLsuggests IMPAIRED HOMEOSTASIS per A.D.A. criteria. Performed By: #### L 100.0100, L100.9950, L500.4050, L503.6550, L503.6030 ####[facility] [address] [place], [address] Potassium [Moles/Vol] 4.2 mmol/L Normal 3.5-5.1 [facility] Comment on above: Performed By: #### L 100.0100, L100.9950, L500.4050, L503.6550, L503.6030 ####[facility] [address] [place], [address] Sodium [Moles/Vol] 137 mmol/L Normal 136-145 [facility] Comment on above: Performed By: #### L 100.0100, L100.9950, L500.4050, L503.6550, L503.6030 ####[facility] [address] [place], [address] T PROT 6.6 g/dL Normal 6.4-8.2 [facility] Comment on above: Performed By: #### L 100.0100, L100.9950, L500.4050, L503.6550, L503.6030 ####[facility] [address] [place], [address] Urea nitrogen [Mass/Vol] 31 mg/dL High 7-18 [facility] Comment on above: Performed By: #### L 100.0100, L100.9950, L500.4050, L503.6550, L503.6030 ####[facility] [address] [place], [address] Ferritinon 02-12-2024 Ferritin [Mass/Vol] 238 ng/mL Normal 26-388 [facility] Comment on above: Performed By: #### L 100.0100, L100.9950, L500.4050, L503.6550, L503.6030 ####[facility] [address] [place], [address] Iron+Iron Binding Capacityon 02-12-2024 Iron [Mass/Vol] 106 ug/dL Normal 65-175 [facility] Comment on above: Performed By: #### L 100.0100, L100.9950, L500.4050, L503.6550, L503.6030 ####[facility] [address] [place], [address] IRON SATURATION 36.8 Normal 15.0-55.0 [facility] Comment on above: Performed By: #### L 100.0100, L100.9950, L500.4050, L503.6550, L503.6030 ####[facility] [address] [place], [address] TIBC 288 ug/dL Normal 250-450 [facility] Comment on above: Performed By: #### L 100.0100, L100.9950, L500.4050, L503.6550, L503.6030 ####[facility] [address] [place], [address] Oncology Visit Reporton 01-14 Oncology Visit Report Normal [facility] Retic Panelon 02-12-2024 IM RET FRACTION 29.40 High 3.00-15.90 [facility] Comment on above: Performed By: #### L 100.0100, L100.9950, L500.4050, L503.6550, L503.6030 ####[facility] [address] [place], [address] RET-HE 30.0 pg Normal 30-35 [facility] Comment on above: Performed By: #### L 100.0100, L100.9950, L500.4050, L503.6550, L503.6030 ####[facility] [address] [place], [address] Retic Count 3.24 High 0.5-1.5 [facility] Comment on above: Performed By: #### L 100.0100, L100.9950, L500.4050, L503.6550, L503.6030 ####[facility] [address] [place], [address] Chest without Contraston Chest without Contrast Normal [facility] Spine Cervical (Routine)on 1 Spine Cervical (Routine) Normal [facility] Brain without Contraston Brain without Contrast Normal [facility] CBC W/Diff, Automatedon - PATH REV Reviewed Normal [facility] Comment on above: Result Comment: Abso lute lymphocytosis suggestive of low grade lympho-proliferative disorder.Clinical correlation is necessary.Macrocytic anemia.Clinical correlation necessary.Prashanth Machado M.D. 02/09/24Prashanth Machado M.D. 02/09/24 AMENDED REPORT 02/09/24 1418 PATH REV previously reported as: August Performed By: #### L 500.2500, L100.0100 ####[facility] [address] [place], [address] HH, Hemoglobin AND Hematocr iton 02-09-2024 Hematocrit (Bld) [Volume fraction] 26.5 % Low 40-54 [facility] Comment on above: Performed By: #### L 100.0600 ####[facility] [address] [place], [address] Hemoglobin (Bld) [Mass/Vol] 8.3 g/dL Low 13.0-16.5 [facility] Comment on above: Performed By: #### L 100.0600 ####[facility] [address] [place], [address] Basic Metabolic Profile (BMP )on 02-07-2024 BUN/CRE 15.5 RATIO Normal 10-20 [facility] Comment on above: Performed By: #### L 500.2500, L100.0100 ####[facility] [address] [place], [address] CA,Total 10.1 mg/dL Normal 8.5-10.1 [facility] Comment on above: Performed By: #### L 500.2500, L100.0100 ####[facility] [address] [place], [address] Chloride [Moles/Vol] 108 mmol/L High 98-107 [facility] Comment on above: Performed By: #### L 500.2500, L100.0100 ####[facility] [address] [place], [address] CO2 [Moles/Vol] 24.0 mmol/L Normal 21.0-32.0 [facility] Comment on above: Performed By: #### L 500.2500, L100.0100 ####[facility] [address] [place], [address] Creatinine [Mass/Vol] 1.74 mg/dL High 0.70-1.30 [facility] Comment on above: Result Comment: The validity of the calculated GFR GFRAA in patients over70 years has not been determined. Clinical correlation isessential. Performed By: #### L 500.2500, L100.0100 ####[facility] [address] [place], [address] ECRCL 39.50 ml/min Normal [facility] Comment on above: Performed By: #### L 500.2500, L100.0100 ####[facility] [address] [place], [address] EST GFR - AA 50 mL/min Low >60 [facility] Comment on above: Result Comment: Afri can Senegalese GFR Calc Performed By: #### L 500.2500, L100.0100 ####[facility] [address] [place], [address] GAP 6 Normal 5-15 [facility] Comment on above: Performed By: #### L 500.2500, L100.0100 ####[facility] [address] [place], [address] GFR/1.73 sq M.predicted among non-blacks MDRD (S/P/Bld) [Vol rate/Area] 41 mL/min/{1.73_m2} Low >60 [facility] Comment on above: Result Comment: Non- GFR Calc Performed By: #### L 500.2500, L100.0100 ####[facility] [address] [place], [address] Glucose [Mass/Vol] 109 mg/dL High 74-106 [facility] Comment on above: Result Comment: Fast ing Glucose result from 100 to 125 mg/dLsuggests IMPAIRED HOMEOSTASIS per A.D.A. criteria. Performed By: #### L 500.2500, L100.0100 ####[facility] [address] [place], [address] Potassium [Moles/Vol] 4.1 mmol/L Normal 3.5-5.1 [facility] Comment on above: Performed By: #### L 500.2500, L100.0100 ####[facility] [address] [place], [address] Sodium [Moles/Vol] 138 mmol/L Normal 136-145 [facility] Comment on above: Performed By: #### L 500.2500, L100.0100 ####[facility] [address] [place], [address] Urea nitrogen [Mass/Vol] 27 mg/dL High 7-18 [facility] Comment on above: Performed By: #### L 500.2500, L100.0100 ####[facility] [address] [place], [address] Basic Metabolic Profile (BMP )on 02-06-2024 BUN/CRE 14.0 RATIO Normal 10-20 [facility] Comment on above: Performed By: #### L 100.0100, L500.2500 ####[facility] [address] [place], [address] CA,Total 9.8 mg/dL Normal 8.5-10.1 [facility] Comment on above: Performed By: #### L 100.0100, L500.2500 ####[facility] [address] [place], [address] Chloride [Moles/Vol] 106 mmol/L Normal 98-107 [facility] Comment on above: Performed By: #### L 100.0100, L500.2500 ####[facility] [address] [place], [address] CO2 [Moles/Vol] 24.0 mmol/L Normal 21.0-32.0 [facility] Comment on above: Performed By: #### L 100.0100, L500.2500 ####[facility] [address] [place], [address] Creatinine [Mass/Vol] 1.86 mg/dL High 0.70-1.30 [facility] Comment on above: Result Comment: The validity of the calculated GFR GFRAA in patients over70 years has not been determined. Clinical correlation isessential. Performed By: #### L 100.0100, L500.2500 ####[facility] [address] [place], [address] ECRCL 36.95 ml/min Normal [facility] Comment on above: Performed By: #### L 100.0100, L500.2500 ####[facility] [address] [place], [address] EST GFR - AA 46 mL/min Low >60 [facility] Comment on above: Result Comment: Afri can Senegalese GFR Calc Performed By: #### L 100.0100, L500.2500 ####[facility] [address] [place], [address] GAP 7 Normal 5-15 [facility] Comment on above: Performed By: #### L 100.0100, L500.2500 ####[facility] [address] [place], [address] GFR/1.73 sq M.predicted among non-blacks MDRD (S/P/Bld) [Vol rate/Area] 38 mL/min/{1.73_m2} Low >60 [facility] Comment on above: Result Comment: Non- GFR Calc Performed By: #### L 100.0100, L500.2500 ####[facility] [address] [place], [address] Glucose [Mass/Vol] 105 mg/dL Normal 74-106 [facility] Comment on above: Result Comment: Fast ing Glucose result from 100 to 125 mg/dLsuggests IMPAIRED HOMEOSTASIS per A.D.A. criteria. Performed By: #### L 100.0100, L500.2500 ####[facility] [address] [place], [address] Potassium [Moles/Vol] 4.4 mmol/L Normal 3.5-5.1 [facility] Comment on above: Performed By: #### L 100.0100, L500.2500 ####[facility] [address] [place], [address] Sodium [Moles/Vol] 137 mmol/L Normal 136-145 [facility] Comment on above: Performed By: #### L 100.0100, L500.2500 ####[facility] [address] [place], [address] Urea nitrogen [Mass/Vol] 26 mg/dL High 7-18 [facility] Comment on above: Performed By: #### L 100.0100, L500.2500 ####[facility] [address] [place], [address] CBC W/Diff, Automatedon 01-13 PATH REV Reviewed Normal [facility] Comment on above: Result Comment: Abso lute lymphocytosis suggestive of low grade lympho-proliferative disorder.Clinical correlation is necessary.Macrocytic anemia.Prashanth Machado M.D. 02/06/24 AMENDED REPORT 02/06/24 1549 PATH REV previously reported as: August kathe Performed By: #### L 100.0100, L500.2500 ####[facility] [address] [place], [address] Basic Metabolic Profile (BMP )on 02-05-2024 BUN/CRE 17.8 RATIO Normal - [facility] Comment on above: Performed By: #### L 500.2500, L100.0100 ####[facility] [address] [place], [address] CA,Total 9.9 mg/dL Normal 8.5-10.1 [facility] Comment on above: Performed By: #### L 500.2500, L100.0100 ####[facility] [address] [place], [address] Chloride [Moles/Vol] 104 mmol/L Normal 98-107 [facility] Comment on above: Performed By: #### L 500.2500, L100.0100 ####[facility] [address] [place], [address] CO2 [Moles/Vol] 29.0 mmol/L Normal 21.0-32.0 [facility] Comment on above: Performed By: #### L 500.2500, L100.0100 ####[facility] [address] [place], [address] Creatinine [Mass/Vol] 2.02 mg/dL High 0.70-1.30 [facility] Comment on above: Result Comment: The validity of the calculated GFR GFRAA in patients over70 years has not been determined. Clinical correlation isessential. Performed By: #### L 500.2500, L100.0100 ####[facility] [address] [place], [address] ECRCL 34.03 ml/min Normal [facility] Comment on above: Performed By: #### L 500.2500, L100.0100 ####[facility] [address] [place], [address] EST GFR - AA 42 mL/min Low >60 [facility] Comment on above: Result Comment: Afri can Senegalese GFR Calc Performed By: #### L 500.2500, L100.0100 ####[facility] [address] [place], [address] GAP 4 Low 5-15 [facility] Comment on above: Performed By: #### L 500.2500, L100.0100 ####[facility] [address] [place], [address] GFR/1.73 sq M.predicted among non-blacks MDRD (S/P/Bld) [Vol rate/Area] 35 mL/min/{1.73_m2} Low >60 [facility] Comment on above: Result Comment: Non- GFR Calc Performed By: #### L 500.2500, L100.0100 ####[facility] [address] [place], [address] Glucose [Mass/Vol] 97 mg/dL Normal 74-106 [facility] Comment on above: Performed By: #### L 500.2500, L100.0100 ####[facility] [address] [place], [address] Potassium [Moles/Vol] 4.6 mmol/L Normal 3.5-5.1 [facility] Comment on above: Performed By: #### L 500.2500, L100.0100 ####[facility] [address] [place], [address] Sodium [Moles/Vol] 137 mmol/L Normal 136-145 [facility] Comment on above: Performed By: #### L 500.2500, L100.0100 ####[facility] [address] [place], [address] Urea nitrogen [Mass/Vol] 36 mg/dL High 7-18 [facility] Comment on above: Performed By: #### L 500.2500, L100.0100 ####[facility] [address] [place], [address] CBC W/Diff, Automatedon 10- SMEAR COMMENT SCANNED Normal [facility] Comment on above: Performed By: #### L 500.2500, L100.0100 ####[facility] [address] [place], [address] BRCon 02-04-2024 RC Normal [facility] Comment on above: Result Comment: [id number] BP RC TRANSFUSED 02/04/24 0656 Performed By: #### B TS, BR ####[facility] [address] [place], [address] Basic Metabolic Profile (BMP )on 02-04-2024 BUN/CRE 13.3 RATIO Normal 10-20 [facility] Comment on above: Performed By: #### L 500.2500, L100.0100 ####[facility] [address] [place], [address] CA,Total 9.4 mg/dL Normal 8.5-10.1 [facility] Comment on above: Performed By: #### L 500.2500, L100.0100 ####[facility] [address] [place], [address] Chloride [Moles/Vol] 106 mmol/L Normal 98-107 [facility] Comment on above: Performed By: #### L 500.2500, L100.0100 ####[facility] [address] [place], [address] CO2 [Moles/Vol] 26.0 mmol/L Normal 21.0-32.0 [facility] Comment on above: Performed By: #### L 500.2500, L100.0100 ####[facility] [address] [place], [address] Creatinine [Mass/Vol] 2.10 mg/dL High 0.70-1.30 [facility] Comment on above: Result Comment: The validity of the calculated GFR GFRAA in patients over70 years has not been determined. Clinical correlation isessential. Performed By: #### L 500.2500, L100.0100 ####[facility] [address] [place], [address] ECRCL 32.73 ml/min Normal [facility] Comment on above: Performed By: #### L 500.2500, L100.0100 ####[facility] [address] [place], [address] EST GFR - AA 40 mL/min Low >60 [facility] Comment on above: Result Comment: Afri can Senegalese GFR Calc Performed By: #### L 500.2500, L100.0100 ####[facility] [address] [place], [address] GAP 5 Normal 5-15 [facility] Comment on above: Performed By: #### L 500.2500, L100.0100 ####[facility] [address] [place], [address] GFR/1.73 sq M.predicted among non-blacks MDRD (S/P/Bld) [Vol rate/Area] 33 mL/min/{1.73_m2} Low >60 [facility] Comment on above: Result Comment: Non- GFR Calc Performed By: #### L 500.2500, L100.0100 ####[facility] [address] [place], [address] Glucose [Mass/Vol] 122 mg/dL High 74-106 [facility] Comment on above: Result Comment: Fast ing Glucose result from 100 to 125 mg/dLsuggests IMPAIRED HOMEOSTASIS per A.D.A. criteria. Performed By: #### L 500.2500, L100.0100 ####[facility] [address] [place], [address] Potassium [Moles/Vol] 4.8 mmol/L Normal 3.5-5.1 [facility] Comment on above: Result Comment: Slig ht Hemolysis, Result may be falsely increased. Performed By: #### L 500.2500, L100.0100 ####[facility] [address] [place], [address] Sodium [Moles/Vol] 137 mmol/L Normal 136-145 [facility] Comment on above: Performed By: #### L 500.2500, L100.0100 ####[facility] [address] [place], [address] Urea nitrogen [Mass/Vol] 28 mg/dL High 7-18 [facility] Comment on above: Performed By: #### L 500.2500, L100.0100 ####[facility] [address] [place], [address] CBC W/Diff, Automatedon 10-2 PATH REV Reviewed Normal [facility] Comment on above: Result Comment: Abso lute lymphocytosis suggestive of low grade lympho-proliferative disorder.Clinical correlation is necessary.SEVERE Macrocytic anemia.Prashanth Machado M.D. 02/04/24 AMENDED REPORT 02/04/24 1407 PATH REV previously reported as: August Performed By: #### L 500.2500, L100.0100 ####[facility] [address] [place], [place], [address] Hemoglobinon 02-04-2024 Hemoglobin (Bld) [Mass/Vol] 8.3 g/dL Low 13.0-16.5 [facility] Comment on above: Performed By: #### L 100.1300 ####[facility] [address] [place], [place], [address] Type AND Screenon 02-04-2024 ABO and Rh group Nom (Bld) Blood group B Rh(D) positive Normal [facility] Comment on above: Order Comment: CMV N EG? NNumber of units to transfuse: 1Reason for Ordering Blood: AcuteAre the blood/blood products to be transfused? YIs the patient having/had surgery? YJackie Castillo Performed By: #### B TS, BR ####[facility] [address] [place], [place], [address] Decalcification bone/plaqueo n 02-03-2024 Decalcification bone/plaque Normal [facility] Comment on above: Performed By: #### P DEC ####[facility] [address] [place], [place], [address] MR/POSTOP.ANEon 02-03-2024 MR/POSTOP.ANE Normal [facility] MR/[id number] 02-03-2024 MR/POSTOPAN2 Normal [facility] Operative Reporton Operative Report Normal [facility] Miscellaneous Lab Procedureo n 01-27-2024 MISC LAB TEST Normal [facility] Comment on above: Order Comment: STOOL CX [id number] Result Comment: Stoo l Culture Final ReportSalmonella/Shigella Screen No Salmonella/Shigella isolated.Campylobacter Culture No Campylobacter isolated.E coli Shiga Toxin EIA Negative TESTING PERFORMED AT [facility]. ORIGINAL REPORT ON FILE IN LAB CONTAINS ADDITIONAL TEST SITE INFORMATION. ____ Performed By: #### M 100.6796, L801.1541, M100.6795, M100.2000, M100.0605 ####[facility] [address] [place], [address] CBC W/Diff, Automatedon 10-1 PATH REV Reviewed Normal [facility] Comment on above: Order Comment: cc: c mp and cbc to and dr. boyer Result Comment: ABSO LUTE LYMPHOCYTOSIS CONSISTENT WITH CLLMacrocytic anemia.Clinical correlation necessary.Prashanth Machado M.D. 01/23/24 AMENDED REPORT 01/23/24 1318 PATH REV previously reported as: August Performed By: #### L 100.0100, L500.4050, L501.5200 ####[facility] [address] [place], [address] CBC W/Diff, Automatedon 10-1 Absolute Neut Normal 2.0-7.7 [facility] Comment on above: Result Comment: DR. OROZCO ORDERED CMP AND CBCD Performed By: #### L 500.4050, L100.0100 ####[facility] [address] [place], [address] HCT Normal 40-54 [facility] Comment on above: Result Comment: DR. OROZCO ORDERED CMP AND CBCD Performed By: #### L 500.4050, L100.0100 ####[facility] [address] [place], [address] HGB Normal 13.0-16.5 [facility] Comment on above: Result Comment: DR. OROZCO ORDERED CMP AND CBCD Performed By: #### L 500.4050, L100.0100 ####[facility] [address] [place], [address] MCH Normal 27.0-32.0 [facility] Comment on above: Result Comment: DR. OROZCO ORDERED CMP AND CBCD Performed By: #### L 500.4050, L100.0100 ####[facility] [address] [place], [address] MCHC Normal 32-36 [facility] Comment on above: Result Comment: DR. OROZCO ORDERED CMP AND CBCD Performed By: #### L 500.4050, L100.0100 ####[facility] [address] [place], [address] MCV Normal 80-94 [facility] Comment on above: Result Comment: DR. OROZCO ORDERED CMP AND CBCD Performed By: #### L 500.4050, L100.0100 ####[facility] [address] [place], [address] NEUT% Normal 47-70 [facility] Comment on above: Result Comment: DR. OROZCO ORDERED CMP AND CBCD Performed By: #### L 500.4050, L100.0100 ####[facility] [address] [place], [address] PLT Normal 150-450 [facility] Comment on above: Result Comment: DR. OROZCO ORDERED CMP AND CBCD Performed By: #### L 500.4050, L100.0100 ####[facility] [address] [place], [address] RBC Normal 4.6-6.2 [facility] Comment on above: Result Comment: DR. OROZCO ORDERED CMP AND CBCD Performed By: #### L 500.4050, L100.0100 ####[facility] [address] [place], [address] RDW CV Normal 11.6-14.6 [facility] Comment on above: Result Comment: DR. OROZCO ORDERED CMP AND CBCD Performed By: #### L 500.4050, L100.0100 ####[facility] [address] [place], [address] RDW SD Normal 35.1-43.9 [facility] Comment on above: Result Comment: DR. OROZCO ORDERED CMP AND CBCD Performed By: #### L 500.4050, L100.0100 ####[facility] [address] [place], [address] WBC Normal 4.4-11.0 [facility] Comment on above: Result Comment: DR. OROZCO ORDERED CMP AND CBCD Performed By: #### L 500.4050, L100.0100 ####[facility] [address] [place], [address] Comprehensive Metabolic Prof ilon 01-22-2024 Albumin [Mass/Vol] 3.2 g/dL Normal 3.2-5.0 [facility] Comment on above: Order Comment: cc: c mp and cbc to and dr. boyer Performed By: #### L 100.0100, L500.4050, L501.5200 ####[facility] [address] [place], [address] Albumin/Globulin [Mass ratio] 0.9 {ratio} Normal 0.9-2.4 [facility] Comment on above: Order Comment: cc: c mp and cbc to and dr. boyer Performed By: #### L 100.0100, L500.4050, L501.5200 ####[facility] [address] [place], [address] ALK P 106 U/L Normal 45-117 [facility] Comment on above: Order Comment: cc: c mp and cbc to and dr. boyer Performed By: #### L 100.0100, L500.4050, L501.5200 ####[facility] [address] [place], [address] ALT [Catalytic activity/Vol] 17 U/L Normal 16-61 [facility] Comment on above: Order Comment: cc: c mp and cbc to and dr. boyer Performed By: #### L 100.0100, L500.4050, L501.5200 ####[facility] [address] [place], [address] AST [Catalytic activity/Vol] 16 U/L Normal 15-37 [facility] Comment on above: Order Comment: cc: c mp and cbc to and dr. boyer Performed By: #### L 100.0100, L500.4050, L501.5200 ####[facility] [address] [place], [address] Bilirubin [Mass/Vol] 0.40 mg/dL Normal 0.20-1.00 [facility] Comment on above: Order Comment: cc: c mp and cbc to and dr. boyer Result Comment: For patients on eltrombopag therapy, use of Dimension [place] TBIL is not recommended. Performed By: #### L 100.0100, L500.4050, L501.5200 ####[facility] [address] [place], [address] BUN/CRE 11.9 RATIO Normal 10-20 [facility] Comment on above: Order Comment: cc: c mp and cbc to and dr. boyer Performed By: #### L 100.0100, L500.4050, L501.5200 ####[facility] [address] [place], [address] CA,Total 9.0 mg/dL Normal 8.5-10.1 [facility] Comment on above: Order Comment: cc: c mp and cbc to and dr. boyer Performed By: #### L 100.0100, L500.4050, L501.5200 ####[facility] [address] [place], [address] Chloride [Moles/Vol] 104 mmol/L Normal 98-107 [facility] Comment on above: Order Comment: cc: c mp and cbc to and dr. boyer Performed By: #### L 100.0100, L500.4050, L501.5200 ####[facility] [address] [place], [address] CO2 [Moles/Vol] 23.0 mmol/L Normal 21.0-32.0 [facility] Comment on above: Order Comment: cc: c mp and cbc to and dr. boyer Performed By: #### L 100.0100, L500.4050, L501.5200 ####[facility] [address] [place], [address] Creatinine [Mass/Vol] 2.01 mg/dL High 0.70-1.30 [facility] Comment on above: Order Comment: cc: c mp and cbc to and dr. boyer Result Comment: The validity of the calculated GFR GFRAA in patients over70 years has not been determined. Clinical correlation isessential. Performed By: #### L 100.0100, L500.4050, L501.5200 ####[facility] [address] [place], [address] EST GFR - AA 42 mL/min Low >60 [facility] Comment on above: Order Comment: cc: c mp and cbc to and dr. boyer Result Comment: Afri can Senegalese GFR Calc Performed By: #### L 100.0100, L500.4050, L501.5200 ####[facility] [address] [place], [address] GAP 10 Normal 5-15 [facility] Comment on above: Order Comment: cc: c mp and cbc to and dr. boyer Performed By: #### L 100.0100, L500.4050, L501.5200 ####[facility] [address] [place], [address] GFR/1.73 sq M.predicted among non-blacks MDRD (S/P/Bld) [Vol rate/Area] 35 mL/min/{1.73_m2} Low >60 [facility] Comment on above: Order Comment: cc: c mp and cbc to and dr. boyer Result Comment: Non- GFR Calc Performed By: #### L 100.0100, L500.4050, L501.5200 ####[facility] [address] [place], [address] Globulin (S) [Mass/Vol] 3.7 g/dL Normal 2.2-4.2 [facility] Comment on above: Order Comment: cc: c mp and cbc to and dr. boyer Performed By: #### L 100.0100, L500.4050, L501.5200 ####[facility] [address] [place], [address] Glucose [Mass/Vol] 108 mg/dL High 74-106 [facility] Comment on above: Order Comment: cc: c mp and cbc to and dr. boyer Result Comment: Fast ing Glucose result from 100 to 125 mg/dLsuggests IMPAIRED HOMEOSTASIS per A.D.A. criteria. Performed By: #### L 100.0100, L500.4050, L501.5200 ####[facility] [address] [place], [address] Potassium [Moles/Vol] 4.2 mmol/L Normal 3.5-5.1 [facility] Comment on above: Order Comment: cc: c mp and cbc to and dr. boyer Performed By: #### L 100.0100, L500.4050, L501.5200 ####[facility] [address] [place], [address] Sodium [Moles/Vol] 136 mmol/L Normal 136-145 [facility] Comment on above: Order Comment: cc: c mp and cbc to and dr. boyer Performed By: #### L 100.0100, L500.4050, L501.5200 ####[facility] [address] [place], [address] T PROT 6.9 g/dL Normal 6.4-8.2 [facility] Comment on above: Order Comment: cc: c mp and cbc to and dr. boyer Performed By: #### L 100.0100, L500.4050, L501.5200 ####[facility] [address] [place], [address] Urea nitrogen [Mass/Vol] 24 mg/dL High 7-18 [facility] Comment on above: Order Comment: cc: c mp and cbc to and dr. boyer Performed By: #### L 100.0100, L500.4050, L501.5200 ####[facility] [address] [place], [address] ALB Normal 3.2-5.0 [facility] Comment on above: Result Comment: DR. OROZCO ORDERED CMP AND CBCD Performed By: #### L 500.4050, L100.0100 ####[facility] [address] [place], [address] ALK P Normal 45-117 [facility] Comment on above: Result Comment: DR. OROZCO ORDERED CMP AND CBCD Performed By: #### L 500.4050, L100.0100 ####[facility] [address] [place], [address] ALT Normal 16-61 [facility] Comment on above: Result Comment: DR. OROZCO ORDERED CMP AND CBCD Performed By: #### L 500.4050, L100.0100 ####[facility] [address] [place], [address] AST Normal 15-37 [facility] Comment on above: Result Comment: DR. OROZCO ORDERED CMP AND CBCD Performed By: #### L 500.4050, L100.0100 ####[facility] [address] [place], [address] BUN Normal 7-18 [facility] Comment on above: Result Comment: DR. OROZCO ORDERED CMP AND CBCD Performed By: #### L 500.4050, L100.0100 ####[facility] [address] [place], [address] BUN/CRE Normal 10-20 [facility] Comment on above: Result Comment: DR. OROZCO ORDERED CMP AND CBCD Performed By: #### L 500.4050, L100.0100 ####[facility] [address] [place], [address] CA,Total Normal 8.5-10.1 [facility] Comment on above: Result Comment: DR. OROZCO ORDERED CMP AND CBCD Performed By: #### L 500.4050, L100.0100 ####[facility] [address] [place], [address] CL Normal 98-107 [facility] Comment on above: Result Comment: DR. OROZCO ORDERED CMP AND CBCD Performed By: #### L 500.4050, L100.0100 ####[facility] [address] [place], [address] CO2 Normal 21.0-32.0 [facility] Comment on above: Result Comment: DR. OROZCO ORDERED CMP AND CBCD Performed By: #### L 500.4050, L100.0100 ####[facility] [address] [place], [address] CREAT,SERUM Normal 0.70-1.30 [facility] Comment on above: Result Comment: DR. OROZCO ORDERED CMP AND CBCD Performed By: #### L 500.4050, L100.0100 ####[facility] [address] [place], [address] EST GFR Normal >60 [facility] Comment on above: Result Comment: DR. OROZCO ORDERED CMP AND CBCD Performed By: #### L 500.4050, L100.0100 ####[facility] [address] [place], [address] EST GFR - AA Normal >60 [facility] Comment on above: Result Comment: DR. OROZCO ORDERED CMP AND CBCD Performed By: #### L 500.4050, L100.0100 ####[facility] [address] [place], [address] GAP Normal 5-15 [facility] Comment on above: Result Comment: DR. OROZCO ORDERED CMP AND CBCD Performed By: #### L 500.4050, L100.0100 ####[facility] [address] [place], [address] GLU Normal 74-106 [facility] Comment on above: Result Comment: DR. OROZCO ORDERED CMP AND CBCD Performed By: #### L 500.4050, L100.0100 ####[facility] [address] [place], [address] Potassium Normal 3.5-5.1 [facility] Comment on above: Result Comment: DR. OROZCO ORDERED CMP AND CBCD Performed By: #### L 500.4050, L100.0100 ####[facility] [address] [place], [address] T BILI Normal 0.20-1.00 [facility] Comment on above: Result Comment: DR. OROZCO ORDERED CMP AND CBCD Performed By: #### L 500.4050, L100.0100 ####[facility] [address] [place], [address] T PROT Normal 6.4-8.2 [facility] Comment on above: Result Comment: DR. OROZCO ORDERED CMP AND CBCD Performed By: #### L 500.4050, L100.0100 ####[facility] [address] [place], [address] Comprehensive Metabolic Profil Normal 136-145 [facility] Comment on above: Result Comment: DR. OROZCO ORDERED CMP AND CBCD Performed By: #### L 500.4050, L100.0100 ####[facility] [address] [place], [address] Magnesiumon 01-22-2024 Magnesium [Mass/Vol] 1.5 mg/dL Low 1.6-2.6 [facility] Comment on above: Order Comment: cc: c mp and cbc to and dr. boyer Performed By: #### L 100.0100, L500.4050, L501.5200 ####[facility] [address] [place], [address] Partial Thromboplast Timeon 01-22-2024 aPTT Coag (Bld) [Time] 38.2 s High 24.1-36.2 [facility] Comment on above: Performed By: #### L 300.3900, L300.4310 ####[facility] [address] [place], [address] Prothrombin Time w/INRon INR Coag (PPP) [Relative time] 1.8 {INR} Normal [facility] Comment on above: Performed By: #### L 300.3900, L300.4310 ####[facility] [address] [place], [address] PT Coag (PPP) [Time] 20.5 s High 11.7-14.9 [facility] Comment on above: Performed By: #### L 300.3900, L300.4310 ####[facility] [address] [place], [address] Type AND Screen - PAT ONLYon 01-22-2024 ABO and Rh group Nom (Bld) Blood group B Rh(D) positive Normal [facility] Comment on above: Order Comment: Reaso n for Laboratory Test [id number]/ANNSFEMORAL ENDARTECECTOMY Performed By: #### B TSPAT ####[facility] [address] [place], [address] CBC W/Diff, Automatedon 10-0 PATH REV Reviewed Normal [facility] Comment on above: Result Comment: Abso lute lymphocytosis suggestive of low grade lympho-proliferative disorder.Clinical correlation is necessary.Macrocytic anemia.Prashanth Machado M.D. 01/19/24 AMENDED REPORT 01/19/24 9615 PATH REV previously reported as: August kathe Performed By: #### L 501.2450, L100.0100, L500.4050 ####[facility] [address] [place], [address] Gram Stainon 01-18-2024 GS ORDERED INCORRECTLY STOOL CULTURE IS EP PANEL results to Dr. Orozco/ EP PANEL Gram Stn Spec Normal [facility] Comment on above: Performed By: #### M 100.6796, L801.1541, M100.6795, M100.2000, M100.0605 ####[facility] [address] [place], [address] Urine Cultureon 01-18-2024 URC Normal [facility] Comment on above: Performed By: #### M 100.2200 ####[facility] [address] [place], [address] CDIFF (PCR)on 01-17-2024 CDIFF Normal [facility] Comment on above: Performed By: #### M 100.6796, L801.1541, M100.6795, M100.2000, M100.0605 ####[facility] [address] [place], [address] Clostridium Diff Toxin/Agon 01-17-2024 CDIFF (EIA) Normal [facility] Comment on above: Performed By: #### M 100.6796, L801.1541, M100.6795, M100.2000, M100.0605 ####[facility] [address] [place], [address] Stool Lactoferrin/WBCon WBCST Normal [facility] Comment on above: Performed By: #### M 100.6796, L801.1541, M100.6795, M100.2000, M100.0605 ####[facility] [address] [place], [address] Abdomen/Pelvis W IV Cont ONL Yon 01-16-2024 Abdomen/Pelvis W IV Cont ONLY Normal [facility] Comprehensive Metabolic Prof ilon 01-16-2024 Albumin [Mass/Vol] 3.0 g/dL Low 3.2-5.0 [facility] Comment on above: Performed By: #### L 501.2450, L100.0100, L500.4050 ####[facility] [address] [place], [address] Albumin/Globulin [Mass ratio] 1.0 {ratio} Normal 0.9-2.4 [facility] Comment on above: Performed By: #### L 501.2450, L100.0100, L500.4050 ####[facility] [address] [place], [address] ALK P 94 U/L Normal 45-117 [facility] Comment on above: Performed By: #### L 501.2450, L100.0100, L500.4050 ####[facility] [address] [place], [address] ALT [Catalytic activity/Vol] 13 U/L Low 16-61 [facility] Comment on above: Performed By: #### L 501.2450, L100.0100, L500.4050 ####[facility] [address] [place], [address] AST [Catalytic activity/Vol] 16 U/L Normal 15-37 [facility] Comment on above: Performed By: #### L 501.2450, L100.0100, L500.4050 ####[facility] [address] [place], [address] Bilirubin [Mass/Vol] 0.40 mg/dL Normal 0.20-1.00 [facility] Comment on above: Result Comment: For patients on eltrombopag therapy, use of Dimension [place] TBIL is not recommended. Performed By: #### L 501.2450, L100.0100, L500.4050 ####[facility] [address] [place], [address] BUN/CRE 13.7 RATIO Normal 10-20 [facility] Comment on above: Performed By: #### L 501.2450, L100.0100, L500.4050 ####[facility] [address] [place], [address] CA,Total 8.1 mg/dL Low 8.5-10.1 [facility] Comment on above: Performed By: #### L 501.2450, L100.0100, L500.4050 ####[facility] [address] [place], [address] Chloride [Moles/Vol] 108 mmol/L High 98-107 [facility] Comment on above: Performed By: #### L 501.2450, L100.0100, L500.4050 ####[facility] [address] [place], [address] CO2 [Moles/Vol] 24.0 mmol/L Normal 21.0-32.0 [facility] Comment on above: Performed By: #### L 501.2450, L100.0100, L500.4050 ####[facility] [address] [place], [address] Creatinine [Mass/Vol] 1.53 mg/dL High 0.70-1.30 [facility] Comment on above: Result Comment: The validity of the calculated GFR GFRAA in patients over70 years has not been determined. Clinical correlation isessential. Performed By: #### L 501.2450, L100.0100, L500.4050 ####[facility] [address] [place], [address] ECRCL 50.42 ml/min Normal [facility] Comment on above: Performed By: #### L 501.2450, L100.0100, L500.4050 ####[facility] [address] [place], [address] EST GFR - AA 58 mL/min Low >60 [facility] Comment on above: Result Comment: Afri can Senegalese GFR Calc Performed By: #### L 501.2450, L100.0100, L500.4050 ####[facility] [address] [place], [address] GAP 5 Normal 5-15 [facility] Comment on above: Performed By: #### L 501.2450, L100.0100, L500.4050 ####[facility] [address] [place], [address] GFR/1.73 sq M.predicted among non-blacks MDRD (S/P/Bld) [Vol rate/Area] 48 mL/min/{1.73_m2} Low >60 [facility] Comment on above: Result Comment: Non- GFR Calc Performed By: #### L 501.2450, L100.0100, L500.4050 ####[facility] [address] [place], [address] Globulin (S) [Mass/Vol] 3.0 g/dL Normal 2.2-4.2 [facility] Comment on above: Performed By: #### L 501.2450, L100.0100, L500.4050 ####[facility] [address] [place], [address] Glucose [Mass/Vol] 101 mg/dL Normal 74-106 [facility] Comment on above: Result Comment: Fast ing Glucose result from 100 to 125 mg/dLsuggests IMPAIRED HOMEOSTASIS per A.D.A. criteria. Performed By: #### L 501.2450, L100.0100, L500.4050 ####[facility] [address] [place], [address] Potassium [Moles/Vol] 4.1 mmol/L Normal 3.5-5.1 [facility] Comment on above: Performed By: #### L 501.2450, L100.0100, L500.4050 ####[facility] [address] [place], [address] Sodium [Moles/Vol] 138 mmol/L Normal 136-145 [facility] Comment on above: Performed By: #### L 501.2450, L100.0100, L500.4050 ####[facility] [address] [place], [address] T PROT 6.0 g/dL Low 6.4-8.2 [facility] Comment on above: Performed By: #### L 501.2450, L100.0100, L500.4050 ####[facility] [address] [place], [address] Urea nitrogen [Mass/Vol] 21 mg/dL High 7-18 [facility] Comment on above: Performed By: #### L 501.2450, L100.0100, L500.4050 ####[facility] [address] [place], [address] Emergency Department Summary on 01-16-2024 Emergency Department Summary Normal [facility] Lipaseon 01-16-2024 Lipase [Catalytic activity/Vol] 43 U/L Normal 13-75 [facility] Comment on above: Result Comment: Susan conway note:LIPASE revised reference range effective 22.New Lipase methodology. Expected to produce lower valuesthan the previous assay method.NEW Reference Range: 13 - 75 U/L Performed By: #### L 501.2450, L100.0100, L500.4050 ####[facility] [address] [place], [address] Urinalysis, Completeon 01-15 BACTERIA 2+ /hpf Normal None Seen [facility] Comment on above: Order Comment: CLEAN CATCH Performed By: #### L 400.0001 ####[facility] [address] [place], [address] WBC 0-5 SEEN Normal 0-5 [facility] Comment on above: Order Comment: CLEAN CATCH Performed By: #### L 400.0001 ####[facility] [address] [place], [address] EPI,SQUAMOUS 0 SEEN Normal 0-5 [facility] Comment on above: Order Comment: CLEAN CATCH Performed By: #### L 400.0001 ####[facility] [address] [place], [address] Mucus Ql (Urine sed) 0 SEEN Normal [facility] Comment on above: Order Comment: CLEAN CATCH Performed By: #### L 400.0001 ####[facility] [address] [place], [address] RBC 0 SEEN Normal 0-5 [facility] Comment on above: Order Comment: CLEAN CATCH Performed By: #### L 400.0001 ####[facility] [address] [place], [address] CBC W/Diff, Automatedon 10-0 PATH REV Reviewed Normal [facility] Comment on above: Result Comment: Abso lute lymphocytosis suggestive of low grade lympho-proliferative disorder.Clinical correlation is necessary.Macrocytic anemia.Prashanth Machado M.D. 01/13/24 AMENDED REPORT 01/13/24 1505 PATH REV previously reported as: August kathe Performed By: #### L 506.1000, L501.5200, L500.4050, L501.9910, L501.9520, L100.0100 ####[facility] [address] [place], [address] 12 Lead EKGon 01-12-2024 12 Lead EKG Normal [facility] 12 Lead EKG Normal [facility] Chest PA and Lateralon 01-11 Chest PA and Lateral Normal [facility] Comprehensive Metabolic Prof ilon 01-12-2024 Albumin [Mass/Vol] 3.2 g/dL Normal 3.2-5.0 [facility] Comment on above: Performed By: #### L 506.1000, L501.5200, L500.4050, L501.9910, L501.9520, L100.0100 ####[facility] [address] [place], [address] Albumin/Globulin [Mass ratio] 0.9 {ratio} Normal 0.9-2.4 [facility] Comment on above: Performed By: #### L 506.1000, L501.5200, L500.4050, L501.9910, L501.9520, L100.0100 ####[facility] [address] [place], [address] ALK P 101 U/L Normal 45-117 [facility] Comment on above: Performed By: #### L 506.1000, L501.5200, L500.4050, L501.9910, L501.9520, L100.0100 ####[facility] [address] [place], [address] ALT [Catalytic activity/Vol] 15 U/L Low 16-61 [facility] Comment on above: Performed By: #### L 506.1000, L501.5200, L500.4050, L501.9910, L501.9520, L100.0100 ####[facility] [address] [place], [address] AST [Catalytic activity/Vol] 13 U/L Low 15-37 [facility] Comment on above: Performed By: #### L 506.1000, L501.5200, L500.4050, L501.9910, L501.9520, L100.0100 ####[facility] [address] [place], [address] Bilirubin [Mass/Vol] 0.50 mg/dL Normal 0.20-1.00 [facility] Comment on above: Result Comment: For patients on eltrombopag therapy, use of Dimension [place] TBIL is not recommended. Performed By: #### L 506.1000, L501.5200, L500.4050, L501.9910, L501.9520, L100.0100 ####[facility] [address] [place], [address] BUN/CRE 14.3 RATIO Normal 10-20 [facility] Comment on above: Performed By: #### L 506.1000, L501.5200, L500.4050, L501.9910, L501.9520, L100.0100 ####[facility] [address] [place], [address] CA,Total 7.2 mg/dL Low 8.5-10.1 [facility] Comment on above: Performed By: #### L 506.1000, L501.5200, L500.4050, L501.9910, L501.9520, L100.0100 ####[facility] [address] [place], [address] Chloride [Moles/Vol] 108 mmol/L High 98-107 [facility] Comment on above: Performed By: #### L 506.1000, L501.5200, L500.4050, L501.9910, L501.9520, L100.0100 ####[facility] [address] [place], [address] CO2 [Moles/Vol] 22.0 mmol/L Normal 21.0-32.0 [facility] Comment on above: Performed By: #### L 506.1000, L501.5200, L500.4050, L501.9910, L501.9520, L100.0100 ####[facility] [address] [place], [address] Creatinine [Mass/Vol] 1.89 mg/dL High 0.70-1.30 [facility] Comment on above: Result Comment: The validity of the calculated GFR GFRAA in patients over70 years has not been determined. Clinical correlation isessential. Performed By: #### L 506.1000, L501.5200, L500.4050, L501.9910, L501.9520, L100.0100 ####[facility] [address] [place], [address] EST GFR - AA 46 mL/min Low >60 [facility] Comment on above: Result Comment: Afri can Senegalese GFR Calc Performed By: #### L 506.1000, L501.5200, L500.4050, L501.9910, L501.9520, L100.0100 ####[facility] [address] [place], [address] GAP 12 Normal 5-15 [facility] Comment on above: Performed By: #### L 506.1000, L501.5200, L500.4050, L501.9910, L501.9520, L100.0100 ####[facility] [address] [place], [address] GFR/1.73 sq M.predicted among non-blacks MDRD (S/P/Bld) [Vol rate/Area] 38 mL/min/{1.73_m2} Low >60 [facility] Comment on above: Result Comment: Non- GFR Calc Performed By: #### L 506.1000, L501.5200, L500.4050, L501.9910, L501.9520, L100.0100 ####[facility] [address] [place], [address] Globulin (S) [Mass/Vol] 3.4 g/dL Normal 2.2-4.2 [facility] Comment on above: Performed By: #### L 506.1000, L501.5200, L500.4050, L501.9910, L501.9520, L100.0100 ####[facility] [address] [place], [address] Glucose [Mass/Vol] 104 mg/dL Normal 74-106 [facility] Comment on above: Result Comment: Fast ing Glucose result from 100 to 125 mg/dLsuggests IMPAIRED HOMEOSTASIS per A.D.A. criteria. Performed By: #### L 506.1000, L501.5200, L500.4050, L501.9910, L501.9520, L100.0100 ####[facility] [address] [place], [address] Potassium [Moles/Vol] 4.0 mmol/L Normal 3.5-5.1 [facility] Comment on above: Performed By: #### L 506.1000, L501.5200, L500.4050, L501.9910, L501.9520, L100.0100 ####[facility] [address] [place], [address] Sodium [Moles/Vol] 142 mmol/L Normal 136-145 [facility] Comment on above: Performed By: #### L 506.1000, L501.5200, L500.4050, L501.9910, L501.9520, L100.0100 ####[facility] [address] [place], [address] T PROT 6.6 g/dL Normal 6.4-8.2 [facility] Comment on above: Performed By: #### L 506.1000, L501.5200, L500.4050, L501.9910, L501.9520, L100.0100 ####[facility] [address] [place], [address] Urea nitrogen [Mass/Vol] 27 mg/dL High 7-18 [facility] Comment on above: Performed By: #### L 506.1000, L501.5200, L500.4050, L501.9910, L501.9520, L100.0100 ####[facility] [address] [place], [address] Emergency Department Summary on 01-12-2024 Emergency Department Summary Normal [facility] L501.4020on 01-12-2024 TROPONIN-I HS 10 pg/mL Normal 3.0-78.0 [facility] Comment on above: Order Comment: 'TROP ' Serial specimen #1, #2 or #3: 1 Result Comment: Susan conway Note: New Test Units and Gender Specific Reference Ranges. For more information see Policy Stat Procedure [place] High Sensitivity Troponin (TNIH) and attachments. Performed By: #### L 501.4020, L501.2300 ####[facility] [address] [place], [address] Magnesiumon 01-12-2024 Magnesium [Mass/Vol] 1.0 mg/dL Low 1.6-2.6 [facility] Comment on above: Performed By: #### L 501.5200 ####[facility] [address] [place], [address] Magnesium [Mass/Vol] 0.6 mg/dL Invalid Interpretation Code 1.6-2.6 [facility] Comment on above: Result Comment: Crit ical Result(s) Called at: 14:51:21 01/12/2024 by: ZACK Cooper. Results read back by same. Performed By: #### L 506.1000, L501.5200, L500.4050, L501.9910, L501.9520, L100.0100 ####[facility] [address] [place], [address] PSA,Total - Annual Screenon 01-12-2024 PSA,TOT SCREEN 5.50 ng/mL High 0.00-4.00 [facility] Comment on above: Result Comment: This test was performed using the TPSA assay method for theKeemotion chemistry system. Values obtained with differentassay methods cannot be used interchangably.When changing PSA assays in the course of monitoring apatient, additional sequential testing should be carriedout to confirm baseline values. Performed By: #### L 506.1000, L501.5200, L500.4050, L501.9910, L501.9520, L100.0100 ####[facility] [address] [place], [address] Phosphoruson 01-12-2024 Phosphate [Mass/Vol] 2.5 mg/dL Normal 2.5-4.9 [facility] Comment on above: Order Comment: 'TROP ' Serial specimen #1, #2 or #3: 1 Performed By: #### L 501.4020, L501.2300 ####[facility] [address] [place], [address] Thyroid Stim Hormone (TSH)on 01-12-2024 TSH 0.616 uIU/mL Normal 0.358-3.740 [facility] Comment on above: Performed By: #### L 506.1000, L501.5200, L500.4050, L501.9910, L501.9520, L100.0100 ####[facility] [address] [place], [address] Vitamin D,25 Hydroxyon 01-11 Vitamin D 25-OH 50.6 ng/mL Normal [facility] Comment on above: Result Comment: Mila min D 25(OH) Status Range Deficiency <20 ng/mL (50nmol/L) Insufficiency 20 - 30 ng/mL (50 - 75 nmol/L) Sufficiency 30 - 100 ng/mL (75 - 250 nmol/L) Toxicity >100 ng/mL (>250 nmol/L) Performed By: #### L 506.1000, L501.5200, L500.4050, L501.9910, L501.9520, L100.0100 ####[facility] [address] [place], [address] MR/BMS.BVSon 01-01-2024 MR/BMS.BVS Normal [facility] Magnesiumon 12-25-2023 Magnesium [Mass/Vol] 1.1 mg/dL Low 1.6-2.6 [facility] Comment on above: Performed By: #### L 501.5200, L509.1000, L500.3600, L506.1000 ####[facility] [address] [place], [address] PTHINon 12-25-2023 PTH 69.5 pg/mL Normal 18.4-80.1 [facility] Comment on above: Performed By: #### L 501.5200, L509.1000, L500.3600, L506.1000 ####[facility] [address] [place], [address] Renal Profileon 12-25-2023 Albumin [Mass/Vol] 3.6 g/dL Normal 3.2-5.0 [facility] Comment on above: Performed By: #### L 501.5200, L509.1000, L500.3600, L506.1000 ####[facility] [address] [place], [address] BUN/CRE 25.8 RATIO High 10-20 [facility] Comment on above: Performed By: #### L 501.5200, L509.1000, L500.3600, L506.1000 ####[facility] [address] [place], [address] CA,Total 8.1 mg/dL Low 8.5-10.1 [facility] Comment on above: Performed By: #### L 501.5200, L509.1000, L500.3600, L506.1000 ####[facility] [address] [place], [address] Chloride [Moles/Vol] 109 mmol/L High 98-107 [facility] Comment on above: Performed By: #### L 501.5200, L509.1000, L500.3600, L506.1000 ####[facility] [address] [place], [address] CO2 [Moles/Vol] 20.0 mmol/L Low 21.0-32.0 [facility] Comment on above: Performed By: #### L 501.5200, L509.1000, L500.3600, L506.1000 ####[facility] [address] [place], [address] Creatinine [Mass/Vol] 1.59 mg/dL High 0.70-1.30 [facility] Comment on above: Result Comment: The validity of the calculated GFR GFRAA in patients over70 years has not been determined. Clinical correlation isessential. Performed By: #### L 501.5200, L509.1000, L500.3600, L506.1000 ####[facility] [address] [place], [address] EST GFR - AA 56 mL/min Low >60 [facility] Comment on above: Result Comment: Afri can [place]egalese GFR Calc Performed By: #### L 501.5200, L509.1000, L500.3600, L506.1000 ####[facility] [address] [place], [address] GFR/1.73 sq M.predicted among non-blacks MDRD (S/P/Bld) [Vol rate/Area] 46 mL/min/{1.73_m2} Low >60 [facility] Comment on above: Result Comment: Non- GFR Calc Performed By: #### L 501.5200, L509.1000, L500.3600, L506.1000 ####[facility] [address] [place], [address] Glucose [Mass/Vol] 110 mg/dL High 74-106 [facility] Comment on above: Result Comment: Fast ing Glucose result from 100 to 125 mg/dLsuggests IMPAIRED HOMEOSTASIS per A.D.A. criteria. Performed By: #### L 501.5200, L509.1000, L500.3600, L506.1000 ####[facility] [address] [place], [address] Phosphate [Mass/Vol] 3.5 mg/dL Normal 2.5-4.9 [facility] Comment on above: Performed By: #### L 501.5200, L509.1000, L500.3600, L506.1000 ####[facility] [address] [place], [address] Potassium [Moles/Vol] 4.6 mmol/L Normal 3.5-5.1 [facility] Comment on above: Performed By: #### L 501.5200, L509.1000, L500.3600, L506.1000 ####[facility] [address] [place], [address] Sodium [Moles/Vol] 138 mmol/L Normal 136-145 [facility] Comment on above: Performed By: #### L 501.5200, L509.1000, L500.3600, L506.1000 ####[facility] [address] [place], [address] Urea nitrogen [Mass/Vol] 41 mg/dL High 7-18 [facility] Comment on above: Performed By: #### L 501.5200, L509.1000, L500.3600, L506.1000 ####[facility] [address] [place], [address] Vitamin D,25 Hydroxyon 12-24 Vitamin D 25-OH 36.6 ng/mL Normal [facility] Comment on above: Result Comment: Mila min D 25(OH) Status Range Deficiency <20 ng/mL (50nmol/L) Insufficiency 20 - 30 ng/mL (50 - 75 nmol/L) Sufficiency 30 - 100 ng/mL (75 - 250 nmol/L) Toxicity >100 ng/mL (>250 nmol/L) Performed By: #### L 501.5200, L509.1000, L500.3600, L506.1000 ####[facility] [address] [place], [address] CBC W/Diff, Automatedon 09-0 PATH REV Reviewed Normal [facility] Comment on above: Result Comment: Abso lute lymphocytosis suggestive of low grade lympho-proliferative disorder.Clinical correlation is necessary.Macrocytic anemia.Prashanth Machado M.D. 12/18/23 AMENDED REPORT 12/18/23 1015 PATH REV previously reported as: August Performed By: #### L 503.6550, L100.0100, L500.4050, L503.6030 ####[facility] [address] [place], [address] Comprehensive Metabolic Prof ilon 12-17-2023 Albumin [Mass/Vol] 3.6 g/dL Normal 3.2-5.0 [facility] Comment on above: Performed By: #### L 503.6550, L100.0100, L500.4050, L503.6030 ####[facility] [address] [place], [address] Albumin/Globulin [Mass ratio] 1.3 {ratio} Normal 0.9-2.4 [facility] Comment on above: Performed By: #### L 503.6550, L100.0100, L500.4050, L503.6030 ####[facility] [address] [place], [address] ALK P 60 U/L Normal 45-117 [facility] Comment on above: Performed By: #### L 503.6550, L100.0100, L500.4050, L503.6030 ####[facility] [address] [place], [address] ALT [Catalytic activity/Vol] 39 U/L Normal 16-61 [facility] Comment on above: Performed By: #### L 503.6550, L100.0100, L500.4050, L503.6030 ####[facility] [address] [place], [address] AST [Catalytic activity/Vol] 23 U/L Normal 15-37 [facility] Comment on above: Performed By: #### L 503.6550, L100.0100, L500.4050, L503.6030 ####[facility] [address] [place], [address] Bilirubin [Mass/Vol] 0.50 mg/dL Normal 0.20-1.00 [facility] Comment on above: Result Comment: For patients on eltrombopag therapy, use of Dimension [place] TBIL is not recommended. Performed By: #### L 503.6550, L100.0100, L500.4050, L503.6030 ####[facility] [address] [place], [address] BUN/CRE 21.7 RATIO High 10-20 [facility] Comment on above: Performed By: #### L 503.6550, L100.0100, L500.4050, L503.6030 ####[facility] [address] [place], [address] CA,Total 6.5 mg/dL Invalid Interpretation Code 8.5-10.1 [facility] Comment on above: Performed By: #### L 503.6550, L100.0100, L500.4050, L503.6030 ####[facility] [address] [place], [address] Chloride [Moles/Vol] 107 mmol/L Normal 98-107 [facility] Comment on above: Performed By: #### L 503.6550, L100.0100, L500.4050, L503.6030 ####[facility] [address] [place], [address] CO2 [Moles/Vol] 27.0 mmol/L Normal 21.0-32.0 [facility] Comment on above: Performed By: #### L 503.6550, L100.0100, L500.4050, L503.6030 ####[facility] [address] [place], [address] Creatinine [Mass/Vol] 1.98 mg/dL High 0.70-1.30 [facility] Comment on above: Result Comment: The validity of the calculated GFR GFRAA in patients over70 years has not been determined. Clinical correlation isessential. Performed By: #### L 503.6550, L100.0100, L500.4050, L503.6030 ####[facility] [address] [place], [address] ECRCL 39.54 ml/min Normal [facility] Comment on above: Performed By: #### L 503.6550, L100.0100, L500.4050, L503.6030 ####[facility] [address] [place], [address] EST GFR - AA 43 mL/min Low >60 [facility] Comment on above: Result Comment: Afri can [place] GFR Calc Performed By: #### L 503.6550, L100.0100, L500.4050, L503.6030 ####[facility] [address] [place], [address] GAP 6 Normal 5-15 [facility] Comment on above: Performed By: #### L 503.6550, L100.0100, L500.4050, L503.6030 ####[facility] [address] [place], [address] GFR/1.73 sq M.predicted among non-blacks MDRD (S/P/Bld) [Vol rate/Area] 36 mL/min/{1.73_m2} Low >60 [facility] Comment on above: Result Comment: Non- GFR Calc Performed By: #### L 503.6550, L100.0100, L500.4050, L503.6030 ####[facility] [address] [place], [address] Globulin (S) [Mass/Vol] 2.8 g/dL Normal 2.2-4.2 [facility] Comment on above: Performed By: #### L 503.6550, L100.0100, L500.4050, L503.6030 ####[facility] [address] [place], [address] Glucose [Mass/Vol] 95 mg/dL Normal 74-106 [facility] Comment on above: Performed By: #### L 503.6550, L100.0100, L500.4050, L503.6030 ####[facility] [address] [place], [address] Potassium [Moles/Vol] 4.7 mmol/L Normal 3.5-5.1 [facility] Comment on above: Performed By: #### L 503.6550, L100.0100, L500.4050, L503.6030 ####[facility] [address] [place], [address] Sodium [Moles/Vol] 140 mmol/L Normal 136-145 [facility] Comment on above: Performed By: #### L 503.6550, L100.0100, L500.4050, L503.6030 ####[facility] [address] [place], [address] T PROT 6.4 g/dL Normal 6.4-8.2 [facility] Comment on above: Performed By: #### L 503.6550, L100.0100, L500.4050, L503.6030 ####[facility] [address] [place], [address] Urea nitrogen [Mass/Vol] 43 mg/dL High 7-18 [facility] Comment on above: Performed By: #### L 503.6550, L100.0100, L500.4050, L503.6030 ####[facility] [address] [place], [address] Ferritinon 12-17-2023 Ferritin [Mass/Vol] 72 ng/mL Normal 26-388 [facility] Comment on above: Performed By: #### L 503.6550, L100.0100, L500.4050, L503.6030 ####[facility] [address] [place], [address] Iron+Iron Binding Capacityon 12-17-2023 Iron [Mass/Vol] 156 ug/dL Normal 65-175 [facility] Comment on above: Performed By: #### L 503.6550, L100.0100, L500.4050, L503.6030 ####[facility] [address] [place], [address] IRON SATURATION 47.3 Normal 15.0-55.0 [facility] Comment on above: Performed By: #### L 503.6550, L100.0100, L500.4050, L503.6030 ####[facility] [address] [place], [address] TIBC 330 ug/dL Normal 250-450 [facility] Comment on above: Performed By: #### L 503.6550, L100.0100, L500.4050, L503.6030 ####[facility] [address] [place], [address] Oncology Visit Reporton Oncology Visit Report Normal [facility] CTA Abd w/Runoff W/WO Contra ston 12-10-2023 CTA Abd w/Runoff W/WO Contrast Normal [facility] CNPNon 09-18-2023 CNPN Telephone (GGEN[facility]) ADINA DAVID ([id number]) 1955 M Date Time Provider Department 09/18/23 HORTENCIA GALLARDO [facility]GEN[facility] During your visit today, we recorded the following information about you: Jong Tereza 09/18/2023 11:52 AM Signed 09/18/23 Patient calling [...] 1 DOSE SUBCUTANEOUSLY ONCE EVERY MONTH - kiicewnsoqm-takmarqlz-syuws ter (TRELEGY ELLIPTA) 100-62.5-25 mcg inhalation powder [...] 04/14/2004 Essential hypertension [I10] Renal cancer, right ([facility]) [C64.1] 04/29/2017 CLL (chronic lymphocytic leukemia) ([facility]) [C91.1*06/13/2017 Iron deficiency anemia [D50.9] 06/13/2017 Iron [...] 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] DENG (acute kidney injury) ([facility]) [N17.9] 01/07/2019 Facial numbness [R20.0] 03/31/2019 04/03/2019 [...] unspecified chronicity, uns*12/01/2022 Coronary artery disease involving [place] falcon*12/02/2022 Other emphysema (HCC) [J43.8] 12/02/2022 Chronic [...] Status:Closed by FIDENCIO MON on 09/19/23 Normal [facility] XR Chest 2 view-PA & LATon 0 [...] JAIME ATKINS MD, MD Date: 08/15/2023 17:49 [facility] Comment on above: Order Comment: Rales right [...] 05/06/2023 12:09:18 AM Ordering Provider: HAFSA JOHNSON [facility] ([place]) [place] SPINE CERVICAL W/O NORMAA Omega 05-06-2023 [...] 05/05/2023 11:06:53 PM Ordering Provider: HAFSA JOHNSON [facility] [place] THORAX W/O CONTRASTon CT THORAX W/O [...] 05/05/2023 11:20:44 PM Ordering Provider: HAFSA Iqbal [facility] ([place]) X[place] SPINE LUMBOSACRAL 2 OR 3 VIEWSon [...] 05/05/2023 11:15:21 PM Ordering Provider: HAFSA JOHNSON [facility] ([place]) ED Nursing Noteon 05-05-2023 ED Nursing Note [facility] they are taking him to another hospital Vida Owusu RN 05/05/231938 Normal [facility] ECG 12 lead (Clinic Performe d)on 02-20-2023 [facility] Work Phone: See scanned report [facility] Work Phone: Patrick 01-21-2023 CNPN Telephone ([facility]) ADINA DAVID ([id number]) 1955 M Date Time Provider Department 01/21/23 NAKUL GALLEGOS [facility] During your visit today, we recorded the following information about you: Lucio Juan MA 01/21/2023 2:58 PM Signed Fyi- called patient to schedule his follow up appt. Pt declined and states he is no longer following up with [facility] providers-jj Allergies As of Date: [...] he is no longer following up with [facility] providers-jj Prescriptions as of 01/21/2023 - BABY ASPIRIN ORAL Take 81 mg by mouth once daily. - CPAP - enoxaparin (LOVENOX) 40 mg/0.4 mL Inject 0.4 mL subcutaneously every 24 hours. - ergocalciferol 50,000 unit capsule (VITAMIN D2, DRISDOL) once every month. - evolocumab (REPATHA SURECLICK) 140 mg/mL pen injector Inject 140 mg subcutaneously every 2 weeks. - unknuoxxlbe-wjteltgkc-swirm ter (TRELEGY ELLIPTA) 100-62.5-25 mcg inhalation powder [...] unspecified chronicity, uns*12/01/2022 Coronary artery disease involving [place] fal[place]*12/02/2022 Other emphysema (HCC) [J43.8] 12/02/2022 Chronic [...] JUAN on 01/21/23 [facility] ALCIDESAraceli 01-17-2023 [facility] ADINA DAVID ([id number]) 1955 M Date Time Provider Department 01/17/23 ULISES RAMOS [facility] During your visit today, we recorded [...] Medical Records [2017] Cmt: [facility] Prescriptions as of 01/17/2023 - trfnwktxhau-jejlexlgh-xzpko ter (TRELEGY ELLIPTA) 100-62.5-25 mcg inhalation powder [...] (HCC) [C64.1] 04/29/2017 CLL (chronic lymphocytic leukemia) ([facility]) [C91.1*06/13/2017 Iron deficiency anemia [D50.9] 06/13/2017 Iron [...] unspecified chronicity, uns*12/01/2022 Coronary artery disease involving [place] fal[place]*12/02/2022 Other emphysema (HCC) [J43.8] 12/02/2022 Chronic [...] Encounter Status:Closed by MARIELOS SCHWARTZ on 01/17/23 [facility] CNCOon 12-30-2022 CNCO Letter Text [facility] CNPNon 12-30-2022 CNPN Telephone ([facility]) ADINA DAVID ([id number]) 1955 M Date Time Provider Department 12/30/22 JENIFER LLOYD During your visit today, we recorded the following information about you: Jenifer Lloyd LPN 12/30/2022 11:29 AM Signed Halle Dale MD, [facility] received a referral for [facility] services. Frankie is currently inpatient at [facility]. At this time we will be canceling [...] tablet by mouth daily at bedtime. - qszxqigmboh-lxjgngqqu-vqech ter (TRELEGY ELLIPTA) 100-62.5-25 mcg inhalation powder [...] unspecified chronicity, uns*12/01/2022 Coronary artery disease involving [place] fal[place]*12/02/2022 Other emphysema (HCC) [J43.8] 12/02/2022 Chronic [...] Encounter Status:Closed by JENIFER LLOYD on 12/30/22 [facility] Patrick 12-27-2022 ESTHER Telephone ([facility]) ADINA DAVID ([id number]) 1955 M Date Time Provider Department 12/27/22 [...] the following requesting call back to confirm [facility] [phone] PARTH Dawkins Lisa, LPN 12/29/2022 11:34 AM Signed Vm left at the following requesting call back to confirm [facility] [phone] Loraine Talbot LPN Allergies As of Date: [...] tablet by mouth daily at bedtime. - pcnhdjkiazk-ibtywiqzc-wzuwb ter (TRELEGY ELLIPTA) 100-62.5-25 mcg inhalation powder [...] unspecified chronicity, uns*12/01/2022 Coronary artery disease involving [place] fal[place]*12/02/2022 Other emphysema (HCC) [J43.8] 12/02/2022 Chronic [...] Z*12/11/2022 Vivi (more content not included)... Normal [facility] BioFire PCR Stool Pathogens (GI Panel)on 12-25-2022 Adenovirus F 40/41 Not detected Normal NOT DETECTED [facility] Comment on above: Order Comment: GI Pa yaneth for: Clostridium Difficile, Stool Culture , Ova/Parasite, Giardia/Crypto, Shiga Toxin Performed By: #### B IOGI #### [facility] [address] [place], [place] [id number] Antibiotic Normal [facility] Comment on above: Order Comment: GI Pa yaneth for: Clostridium Difficile, Stool Culture , Ova/Parasite, Giardia/Crypto, Shiga Toxin Performed By: #### B IOGI #### [facility] [address] [place], [place] [phone] Astrovirus Not detected Normal NOT DETECTED [facility] Comment on above: Order Comment: GI Pa yaneth for: Clostridium Difficile, Stool Culture , Ova/Parasite, Giardia/Crypto, Shiga Toxin Performed By: #### B IOGI #### [facility] [address] [place] [address] Bacteria identified Cx Nom (Unsp spec) < BACTERIA > Normal [facility] Comment on above: Order Comment: GI Pa yaneth for: Clostridium Difficile, Stool Culture , Ova/Parasite, Giardia/Crypto, Shiga Toxin Performed By: #### B IOGI #### [facility] [address] [place], [place] [phone] C. difficile tox A/B Not detected Normal NOT DETECTED [facility] Comment on above: Order Comment: GI Pa yaneth for: Clostridium Difficile, Stool Culture , Ova/Parasite, Giardia/Crypto, Shiga Toxin Performed By: #### B IOGI #### [facility] [address] [place], [place] [phone] Campylobacter Not detected Normal NOT DETECTED [facility] Comment on above: Order Comment: GI Pa yaneth for: Clostridium Difficile, Stool Culture , Ova/Parasite, Giardia/Crypto, Shiga Toxin Performed By: #### B IOGI #### [facility] [address] [place], [place] [phone] Cryptosporidium Not detected Normal NOT DETECTED [facility] Comment on above: Order Comment: GI Pa yaneth for: Clostridium Difficile, Stool Culture , Ova/Parasite, Giardia/Crypto, Shiga Toxin Performed By: #### B IOGI #### [facility] [address] [place] [address] Cyclospora Not detected Normal NOT DETECTED [facility] Comment on above: Order Comment: GI Pa yaneth for: Clostridium Difficile, Stool Culture , Ova/Parasite, Giardia/Crypto, Shiga Toxin Performed By: #### B IOGI #### [facility] [address] [place] [address] Diar E. coli/Shig < DIARRHEAGENIC E. C TORRES / SHIGELLA > Normal [facility] Comment on above: Order Comment: GI Pa yaneth for: Clostridium Difficile, Stool Culture , Ova/Parasite, Giardia/Crypto, Shiga Toxin Performed By: #### B IOGI #### [facility] [address] [place] [address] E. coli (EAEC) Not detected Normal NOT DETECTED [facility] Comment on above: Order Comment: GI Pa yaneth for: Clostridium Difficile, Stool Culture , Ova/Parasite, Giardia/Crypto, Shiga Toxin Performed By: #### B IOGI #### [facility] [address] [place] [address] E. coli (EPEC) Not detected Normal NOT DETECTED [facility] Comment on above: Order Comment: GI Pa yaneth for: Clostridium Difficile, Stool Culture , Ova/Parasite, Giardia/Crypto, Shiga Toxin Performed By: #### B IOGI #### [facility] [address] [place] [address] E. coli (ETEC) Not detected Normal NOT DETECTED [facility] Comment on above: Order Comment: GI Pa yaneth for: Clostridium Difficile, Stool Culture , Ova/Parasite, Giardia/Crypto, Shiga Toxin Performed By: #### B IOGI #### [place] [address] E. coli (STEC) Not detected Normal NOT DETECTED [facility] Comment on above: Order Comment: GI Pa yaneth for: Clostridium Difficile, Stool Culture , Ova/Parasite, Giardia/Crypto, Shiga Toxin Performed By: #### B IOGI #### [facility] [address] [place] [address] E. coli O157 N/A Normal NOT DETECTED [facility] Comment on above: Order Comment: GI Pa yaneth for: Clostridium Difficile, Stool Culture , Ova/Parasite, Giardia/Crypto, Shiga Toxin Performed By: #### B IOGI #### [facility] [address] [place] [address] E. histolytica Not detected Normal NOT DETECTED [facility] Comment on above: Order Comment: GI Pa yaneth for: Clostridium Difficile, Stool Culture , Ova/Parasite, Giardia/Crypto, Shiga Toxin Performed By: #### B IOGI #### [facility] [address] [place] [address] GI Pathogens Sum ----- GASTROINTESTIN AL PATHOGENS SUMMARY ----- Normal [facility] Comment on above: Order Comment: GI Pa yaneth for: Clostridium Difficile, Stool Culture , Ova/Parasite, Giardia/Crypto, Shiga Toxin Performed By: #### B IOGI #### [facility] [address] [place] [address] Giardia lamblia Not detected Normal NOT DETECTED [facility] Comment on above: Order Comment: GI Pa yaneth for: Clostridium Difficile, Stool Culture , Ova/Parasite, Giardia/Crypto, Shiga Toxin Performed By: #### B IOGI #### [facility] [address] [place] [address] Indiv PCR Results ----- INDIVIDUAL PCR RESULTS ----- Normal [facility] Comment on above: Order Comment: GI Pa yaneth for: Clostridium Difficile, Stool Culture , Ova/Parasite, Giardia/Crypto, Shiga Toxin Performed By: #### B IOGI #### [facility] [address] [place] [address] Norovirus GI/GII Not detected Normal NOT DETECTED [facility] Comment on above: Order Comment: GI Pa yaneth for: Clostridium Difficile, Stool Culture , Ova/Parasite, Giardia/Crypto, Shiga Toxin Performed By: #### B IOGI #### [facility] [address] [place], [place] [id number] P. shigelloides Not detected Normal NOT DETECTED [facility] Comment on above: Order Comment: GI Pa yaneth for: Clostridium Difficile, Stool Culture , Ova/Parasite, Giardia/Crypto, Shiga Toxin Performed By: #### B IOGI #### [facility] [address] [place] [address] Parasites < PARASITES > Normal [facility] Comment on above: Order Comment: GI Pa yaneth for: Clostridium Difficile, Stool Culture , Ova/Parasite, Giardia/Crypto, Shiga Toxin Performed By: #### B IOGI #### [facility] [address] [place] [address] Pathogens Detected Detected Normal NOT DETECTED [facility] Comment on above: Order Comment: GI Pa yaneth for: Clostridium Difficile, Stool Culture , Ova/Parasite, Giardia/Crypto, Shiga Toxin Performed By: #### B IOGI #### [facility] [address] [place] [address] Pathogens Detected Normal NOT DETECTED [facility] Comment on above: Order Comment: GI Pa yaneth for: Clostridium Difficile, Stool Culture , Ova/Parasite, Giardia/Crypto, Shiga Toxin Performed By: #### B IOGI #### [facility] [address] [place], [place] [id number] Rotavirus A Not detected Normal NOT DETECTED [facility] Comment on above: Order Comment: GI Pa yaneth for: Clostridium Difficile, Stool Culture , Ova/Parasite, Giardia/Crypto, Shiga Toxin Performed By: #### B IOGI #### [facility] [address] [place], [place] [id number] Salmonella Not detected Normal NOT DETECTED [facility] Comment on above: Order Comment: GI Pa yaneth for: Clostridium Difficile, Stool Culture , Ova/Parasite, Giardia/Crypto, Shiga Toxin Performed By: #### B IOGI #### [facility] [address] [place], [place] [id number] Sapovirus Not detected Normal NOT DETECTED [facility] Comment on above: Order Comment: GI Pa yaneth for: Clostridium Difficile, Stool Culture , Ova/Parasite, Giardia/Crypto, Shiga Toxin Performed By: #### B IOGI #### [facility] [address] [place] [address] Shig/E. coli (EIEC) Not detected Normal NOT DETECTED [facility] Comment on above: Order Comment: GI Pa yaneth for: Clostridium Difficile, Stool Culture , Ova/Parasite, Giardia/Crypto, Shiga Toxin Performed By: #### B IOGI #### [facility] [address] [place] [address] Vibrio Not detected Normal NOT DETECTED [facility] Comment on above: Order Comment: GI Pa yaneth for: Clostridium Difficile, Stool Culture , Ova/Parasite, Giardia/Crypto, Shiga Toxin Performed By: #### B IOGI #### [facility] [address] [place] [address] Vibrio cholerae Not detected Normal NOT DETECTED [facility] Comment on above: Order Comment: GI Pa yaneth for: Clostridium Difficile, Stool Culture , Ova/Parasite, Giardia/Crypto, Shiga Toxin Performed By: #### B IOGI #### [facility] [address] [place] [address] Viruses < VIRUSES > Normal [facility] Comment on above: Order Comment: GI Pa yaneth for: Clostridium Difficile, Stool Culture , Ova/Parasite, Giardia/Crypto, Shiga Toxin Performed By: #### B IOGI #### [place] [address] Yersinia Not detected Normal NOT DETECTED [facility] Comment on above: Order Comment: GI Pa yaneth for: Clostridium Difficile, Stool Culture , Ova/Parasite, Giardia/Crypto, Shiga Toxin Performed By: #### B IOGI #### [place] [address] Pneumocystis jirovecii DFAon 12-25-2022 Result/Comment SEE BELOW [facility] Comment on above: Result Comment: Pneu mocystis jirovecii (P. carinii), DFA SOURCE : SPUTUM Result/Comment: Not Detected Reference Range: Not Detected Test Performed by Nadir Christy, [facility], [address] [place], [place] Bassam Light M.D., Ph.D., Director of Laboratories , [facility] [id number] Performed By: #### P CDFA #### [facility] [address] [place] [address] XR Chest 1 view-Mobileon XR Chest 1 view-Mobile PORTABLE CHEST: CLINICAL INDICATION: R06.02: SHORTNESS OF BREATH [id number]: Cough TECHNIQUE: Portable AP COMPARISON: 12/20/2022 FINDINGS: [...] by: BISMARK BURTON MD, Date: 12/22/2022 06:44 Normal [facility] .CBC Path Reviewon CBC Path Review Marked macrocytic an emia and marked leukocytosis with marked atypical absolute lymphocytosis and several smudge cells, suspicious for lymphoproliferative disorder. Myeloid left shift with some toxic changes also noted. Rule out infection. Rule out blood loss. Suggest further hematologic evaluation if clinically indicated. Normal [facility] ([place]) Comment on above: Result Comment: Elec tronically signed by: MAGNOLIA YANG 12.20.2022 17:10 EDT Performed By: #### C MP, TROPHS, GFR, CBC, CBCPR, LAC, PRO, DIFF, MDW ####[address] [address]#### MORPH, APTT ####[address] [place], [place] [address] BCIDon 12-20-2022 Acinetobacter kentrell-baumanii complex Not detected Normal Not Detected [facility] ([place] Comment on above: Performed By: #### B PIETER ####[address] Olivarez[address]un[address]ju[address] [place], [place] [address] Bacteroides fragilis Not detected Normal Not Detected [facility] ([place]) Comment on above: Performed By: #### B PIETER ####H[address]ain OlivarezWgoijhkmf[address] [place], [place] [address] BCID Comment See Comment Normal [facility] ([place] Comment on above: Result Comment: Anti microbial [...] Performed By: #### B PIETER ####[address] [place], [place] [address] Barbara albicans Not detected Normal Not Detected [facility] ([place]) Comment on above: Performed By: #### B PIETER ####Hussain OlivarezFyjpbwedc[address] [place], [place] [address] Barbara auris Not detected Normal Not Detected [facility] ([place]) Comment on above: Performed By: #### B PIETER ####Hussain OlivarezIbmfgjmvl[address] [place], [place] [address] Barbara glabrata Not detected Normal Not Detected [facility] ([place]) Comment on above: Performed By: #### B PIETER ####Hussain OlivarezTkvqahgvi4804 [place], [place] [address] Barbara krusei Not detected Normal Not Detected [facility] ([place]) Comment on above: Performed By: #### B PIETER ####Hussain OlivarezDcogdjjin1716 [place], [place] [address] Barbara parapsilosis Not detected Normal Not Detected [facility] ([place]) Comment on above: Performed By: #### B PIETER ####Hussainsabi OlivarezRbgmaqrpb[address] [place], [place] [address] Barbara tropicalis Not detected Normal Not Detected [facility] ([place]) Comment on above: Performed By: #### B PIETER ####[address] [place] [phone] Cryptococcus neoformans-gattii Not detected Normal Not Detected [facility] ([place]) Comment on above: Performed By: #### B PIETER ####[address] [place] [phone] CTX-M (ESBL) Not Applicable Normal Not Detected [facility] ([place]) Comment on above: Performed By: #### B PIETER ####[address] [place] [address] E. Coli Not detected Normal Not Detected [facility] ([place]) Comment on above: Performed By: #### B PIETER ####Hussainsabi OlivarezOvuusuffa[address] [place] [address] Enterobacter cloacae Complex Not detected Normal Not Detected [facility] ([place] Comment on above: Performed By: #### B PIETER ####[address]rcio[address] [place] [address] Enterobacterales Not detected Normal Not Detected [facility] ([place] Comment on above: Performed By: #### B PIETER ####[address]umpr[address] [place] [address] Enterococcus faecalis Not detected Normal Not Detected [facility] ([place] Comment on above: Performed By: #### B PIETER ####Hussainsabi LanePpcoooztp[address] [place] [address] Enterococcus faecium Not detected Normal Not Detected [facility] ([place]) Comment on above: Performed By: #### B PIETER ####Hussainsabi [address]Qwcjoydbg[address] [place] [address] Haemophilus influenzae Not detected Normal Not Detected [facility] ([place]) Comment on above: Performed By: #### B PIETER ####Hussainsabi OlivarezLndwglrit4498 [place] [address] IMP (Carbapenemase) Not Applicable Normal Not Detected [facility] ([place]) Comment on above: Performed By: #### B PIETER ####Hussainsabi OlivarezGuispchao[address] [place] [address] Klebsiella aerogenes Not detected Normal Not Detected [facility] ([place] Comment on above: Performed By: #### B PIETER ####[address] [place] [phone] Klebsiella oxytoca Not detected Normal Not Detected [facility] ([place] Comment on above: Performed By: #### B PIETER ####[address] [place] [phone] Klebsiella pneumoniae group Not detected Normal Not Detected [facility] ([place] Comment on above: Performed By: #### B PIETER ####[address] [place] [address] KPC (Carbapenemase) Not Applicable Normal Not Detected [facility] ([place] Comment on above: Performed By: #### B PIETER ####[address] [place] [phone] Listeria monocytogenes Not detected Normal Not Detected [facility] ([place] Comment on above: Performed By: #### B PIETER ####[address] [place] [address] MCR-1 (Colistin Resistance) Not Applicable Normal Not Detected [facility] ([place] Comment on above: Performed By: #### B PIETER ####[address] [place] [phone] Mec A/C Not Applicable Normal Not Detected [facility] ([place] Comment on above: Performed By: #### B PIETER ####[address] [place] [address] Mec A/C-MREJ (MRSA) Not Applicable Normal Not Detected [facility] ([place] Comment on above: Performed By: #### B PIETER ####Hussainsabi OlivarezRzsiugnij[address] [place] [address] NDM (Carbapenemase) Not Applicable Normal Not Detected [facility] ([place] Comment on above: Performed By: #### B PIETER ####Hussainsabi OlivarezTjzdqedye[address] [place] [phone] Neisseria meningitidis (Encapsalated) Not detected Normal Not Detected [facility] ([place] Comment on above: Performed By: #### B PIETER ####[facility] [place], [place] [address] OXA-48 like (Carbapenemase) Not Applicable Normal Not Detected [facility] ([place] Comment on above: Performed By: #### B PIETER ####[facility]20[facility] [place], [place] [address] Proteus Not detected Normal Not Detected [facility] ([place] Comment on above: Performed By: #### B PIETER ####[address]ain [address]at[address] [place], [place] [address] Pseudomonas aeruginosa Not detected Normal Not Detected [facility] ([place] Comment on above: Performed By: #### B PIETER ####[facility]ainDay Kimball HospitalCclwnwilw2677 [place], [place] [address] S. agalactiae Org specific cx Ql (Vag fld) Not detected Normal Not Detected [facility] ([place] Comment on above: Performed By: #### B PIETER ####[facility]20[facility] [place] [phone] Salmonella species Not detected Normal Not Detected [facility] ([place] Comment on above: Performed By: #### B PIETER ####[facility]20[facility] [place] [phone] Serratia marcescens Not detected Normal Not Detected [facility] ([place] Comment on above: Performed By: #### B PIETER ####[facility]20[facility] [place] [phone] Staphylococcus Not detected Normal Not Detected [facility] ([place] Comment on above: Performed By: #### B PIETER ####[facility] [place] [phone] Staphylococcus aureus Not detected Normal Not Detected [facility] ([place] Comment on above: Result Comment: If S taphylococcus aureus is Detected, an Infectious Disease physician consult is required on identification. Performed By: #### B PIETER ####[facility]20[facility] [place] [phone] Staphylococcus epidermidis Not detected Normal Not Detected [facility] ([place] Comment on above: Performed By: #### B PIETER ####[address] [place] [address] Staphylococcus lugdunensis Not detected Normal Not Detected [facility] ([place]) Comment on above: Performed By: #### B PIETER ####[address] [place] [address] Stenotrophomonas maltophilia Not detected Normal Not Detected [facility] ([place] Comment on above: Performed By: #### B PIETER ####[address] [place] [address] Streptococcus Detected Abnormal Not Detected [facility] ([place] Comment on above: Performed By: #### B PIETER ####[address] [place] [address] Streptococcus pneumoniae Detected Abnormal Not Detected [facility] ([place] Comment on above: Performed By: #### B PIETER ####[address] [place] [address] Streptococcus pyogenes Not detected Normal Not Detected [facility] ([place] Comment on above: Performed By: #### B PIETER ####[address] [place] [address] Van A/B Not Applicable Normal Not Detected [facility] ([place] Comment on above: Performed By: #### B PIETER ####[address] [place] [address] VIM (Carbapenemase) Not Applicable Normal Not Detected [facility] ([place] Comment on above: Performed By: #### B PIETER ####[address] [place] [address] Patrick 12-20-2022 ESTHER Telephone (HCSIND) ADINA DAVID ([id number]) 1955 M Date Time Provider Department 12/20/22 HALLE DALE During your visit today, we recorded the following information about you: Sue Raygoza LPN 12/20/2022 6:[address] Dale, Thank you for the referral for Adina to [facility] home care services with [facility]. In [...] you for the referral for Adina to [facility] care services with [facility]. In [...] RAYGOZA on: 12/26/2022 05:26 PM Modules accepted: Sue Meehan LPN 12/26/2022 5:30 PM Signed Addended by: SUE RAYGOZA on: 12/26/2022 05:30 PM Modules accepted: Orders Allergies As of Date: 12/20/2022 Noted Allergy Reaction DOXYCYCLINE 07/17/2021 5 - Intolerance Comments: Rash, diarrhea PENICILLIN 02/22/2017 4 - Hives PENICILLIN V POTASSIUM 12/20/2021 14 - Other: See Comments Date Reviewed: 12/19/2022 Reviewed by: Halle Dale MD - Fully Assessed Reason for Visit: Home Care [7304] Primary Visit Diagnosis:CLL (chronic lymphocytic leukemia) ([facility]) [C91.10] Order(s):CONSULT TO [facility] AT HOME [[id number]] Order #: [id number]: 1 Prescriptions as of 12/26/2022 - Doxepin (SILENOR) 3 mg tab Take 1 tablet by mouth daily at bedtime. - dmpynpzedmo-tymugwexq-uznav ter (TRELEGY ELLIPTA) 100-62.5-25 mcg inhalation powder [...] *10/24/2018 Stag (more content not included)... Normal [facility] XR Chest 1 view-Mobileon XR Chest 1 [...] pneumonia. Report Dictated on Authenticated by: Ratna Lynos On: 12/20/2022 06:33 Read by: RATNA LYONS MD, Date: 12/20/2022 06:33 [facility] .GFRon 12-19-2022 GFR Non- 30 ml/min/1.73sqm Normal [facility] ([place]) Comment on above: Result Comment: GFR Population [...] CBC, CBCPR, LAC, PRO, DIFF, MDW #### [place] [address] #### MORPH, APTT #### [facility] [address] [place], [place] [address] GFR 36 ml/min/1.73sqm Normal [facility] ([place]) Comment on above: Result Comment: GFR Population [...] CBC, CBCPR, LAC, PRO, DIFF, MDW #### [place] [address] #### MORPH, APTT #### [facility] [address] [place] [phone] .MDWon 12-19-2022 Monocyte Distribution Width 46.30 High 0.00-20.00 [facility] ([place]) Comment on above: Result Comment: The predictive value of MDW for identifying sepsis in patients with hematological abnormalities has not been established Performed By: #### C MP, TROPHS, GFR, CBC, CBCPR, LAC, PRO, DIFF, MDW ####[place] [address]#### MORPH, APTT ####[place] [address] .Manual Diffon 12-19-2022 Basophil %, Manual 0.0 % Normal 0.0-2.5 [facility] ([place]) Comment on above: Performed By: #### C MP, TROPHS, GFR, CBC, CBCPR, LAC, PRO, DIFF, W ####[place] [address]#### MORPH, APTT ####[place] [address] Basophil, Abs Manual 0.0 10 3/mcL Normal 0.0-0.2 [facility] ([place]) Comment on above: Performed By: #### C MP, TROPHS, GFR, CBC, CBCPR, LAC, PRO, DIFF, MDW ####[place] [address]#### MORPH, APTT ####[place] [address] Eosinophil %, Manual 0.0 % Normal 0.0-7.0 [facility] ([place]) Comment on above: Performed By: #### C MP, TROPHS, GFR, CBC, CBCPR, LAC, PRO, DIFF, W ####[place] [address]#### MORPH, APTT ####Hussain OlivarezNuhvknwkn[address] [place], [place] [address] Eosinophil, Abs Manual 0.0 10 3/mcL Normal 0.0-0.4 [facility] ([place]) Comment on above: Performed By: #### C MP, TROPHS, GFR, CBC, CBCPR, LAC, PRO, DIFF, MDW ####[place] [address]#### MORPH, APTT ####Hussainsabi OlivarezSfyzkdgrc[address] [place], [place] [address] Lymphocyte %, Manual 82.0 % High 10.0-50.0 [facility] ([place] Comment on above: Performed By: #### C MP, TROPHS, GFR, CBC, CBCPR, LAC, PRO, DIFF, MDW ####[place] [address]#### MORPH, APTT ####Hussains[address]Lhmyptsrb[address] [place], [place] [address] Lymphocyte, Abs Manual 42.7 10 3/mcL High 0.8-3.9 [facility] ([place]) Comment on above: Performed By: #### C MP, TROPHS, GFR, CBC, CBCPR, LAC, PRO, DIFF, MDW ####[place] [address]#### MORPH, APTT ####Hussainsabi [address]Tyjstnfkg[address] [place], [place] [address] Monocyte %, Manual 2.0 % Normal 1.7-13.0 [facility] ([place] Comment on above: Performed By: #### C MP, TROPHS, GFR, CBC, CBCPR, LAC, PRO, DIFF, MDW ####[place] [address]#### MORPH, APTT ####Hussainsabi OlivarezPtuxmixgs[address] [place], [place] [address] Monocyte, Abs Manual 1.1 10 3/mcL High 0.2-1.0 [facility] ([place]) Comment on above: Performed By: #### C MP, TROPHS, GFR, CBC, CBCPR, LAC, PRO, DIFF, MDW ####[place] [address]#### MORPH, APTT ####[facility] [place], [place] [address] Neutrophil %, Manual 16.0 % Low 37.0-80.0 [facility] ([place] Comment on above: Performed By: #### C MP, TROPHS, GFR, CBC, CBCPR, LAC, PRO, DIFF, MDW ####[place] [address]#### MORPH, APTT ####[facility] HospitalPcuqspbmb5066 [place], [place] [address] Neutrophil, Abs Manual 8.3 10 3/mcL High 2.9-6.2 [facility] ([place] Comment on above: Performed By: #### C MP, TROPHS, GFR, CBC, CBCPR, LAC, PRO, DIFF, MDW ####[place] [address]#### MORPH, APTT ####[facility] [place] [phone] Nucleated RBC 0.0 /100 WBC Normal [facility] ([place] Comment on above: Performed By: #### C MP, TROPHS, GFR, CBC, CBCPR, LAC, PRO, DIFF, MDW ####[place] [address]#### MORPH, APTT ####[facility] HospitalYsdltobtx4896 [place], [place] [address] .Morphon 12-19-2022 Hypochrom 1+ Normal [facility] ([place] Comment on above: Performed By: #### C MP, TROPHS, GFR, CBC, CBCPR, LAC, PRO, DIFF, MDW ####[place] [address]#### MORPH, APTT ####[facility] HospitalTriklurag6766 [place] [address] Macrocytosis 1+ Normal [facility] ([place] Comment on above: Performed By: #### C MP, TROPHS, GFR, CBC, CBCPR, LAC, PRO, DIFF, MDW ####[place] [address]#### MORPH, APTT ####[place] [id number] [place] [address] Platelet Estimate Normal Normal [facility] ([place] Comment on above: Performed By: #### C MP, TROPHS, GFR, CBC, CBCPR, LAC, PRO, DIFF, MDW ####[place] [address]#### MORPH, APTT ####[place] [address] Smudge Cells 1+ Normal [facility] ([place] Comment on above: Performed By: #### C MP, TROPHS, GFR, CBC, CBCPR, LAC, PRO, DIFF, MDW ####[place] [address]#### MORPH, APTT ####[place] [address] .Urinalysis Microscopic (AO) on 12-19-2022 UA Amorphus 1+ /hpf Normal [facility] ([place] Comment on above: Performed By: #### U A, UAMICAO #### [address] [place] [address] [place] [address] UA Coarse Granular Casts 0-5 Abnormal [facility] ([place] Comment on above: Performed By: #### U A, UAMICAO #### [facility] [place] [address] [place] [phone] UA RBC None Seen Normal None Seen [facility] ([place] Comment on above: Performed By: #### U A, UAMICAO #### [facility] [place] [address] [place] [phone] UA Squam Epithelial 0-5 Abnormal None Seen [facility] ([place]) Comment on above: Performed By: #### U A, UAMICAO #### [facility] [address] [place], [place] [address] UA WBC None Seen Normal None Seen [facility] ([place] Comment on above: Performed By: #### U A, UAMICAO #### [facility] [address] [place], [place] [address] APTTon 12-19-2022 aPTT Coag (Bld) [Time] 25.2 s Normal 25.0-35.0 [facility] ([place]) Comment on above: Result Comment: For Heparin anticoagulation therapy, the recommended therapeutic range is: 50.6-87.4 seconds. Patients on heparin therapy may have an extreme result. Performed By: #### C MP, TROPHS, GFR, CBC, CBCPR, LAC, PRO, DIFF, MDW #### [place] [address] #### MORPH, APTT #### [facility] [address] [place] [phone] Heparin dose (APTT) LMW Heparin Normal [facility] ([place]) Comment on above: Performed By: #### C MP, TROPHS, GFR, CBC, CBCPR, LAC, PRO, DIFF, W #### [place] [address] #### MORPH, APTT #### [facility] [address] [place], [place] [address] CBCon 12-19-2022 Erythrocyte distribution width (RBC) [Ratio] 17.6 % High 11.5-14.5 [facility] ([place]) Comment on above: Performed By: #### C MP, TROPHS, GFR, CBC, CBCPR, LAC, PRO, DIFF, W #### [place] [address] #### MORPH, APTT #### [facility] [address] [place], [place] [address] Hematocrit (Bld) [Volume fraction] 24.3 % Low 42.0-52.0 [facility] ([place]) Comment on above: Performed By: #### C MP, TROPHS, GFR, CBC, CBCPR, LAC, PRO, DIFF, MDW #### [place] [address] #### MORPH, APTT #### [facility] [address] [place], [place] [address] Hgb 7.3 G/dL Low 14.0-18.0 [facility] ([place]) Comment on above: Performed By: #### C MP, TROPHS, GFR, CBC, CBCPR, LAC, PRO, DIFF, MDW #### [place] [address] #### MORPH, APTT #### [facility] [address] [place], [place] [address] MCH (RBC) [Entitic mass] 33.3 pg High 27.0-31.2 [facility] ([place]) Comment on above: Performed By: #### C MP, TROPHS, GFR, CBC, CBCPR, LAC, PRO, DIFF, MDW #### [place] [address] #### MORPH, APTT #### [facility] [address] [place], [place] [address] MCHC 30.2 G/dL Low 31.8-35.4 [facility] ([place]) Comment on above: Performed By: #### C MP, TROPHS, GFR, CBC, CBCPR, LAC, PRO, DIFF, MDW #### [place] [address] #### MORPH, APTT #### [facility] [address] [place], [place] [address] MCV (RBC) [Entitic vol] 110.1 fL High 80.0-94.0 [facility] ([place]) Comment on above: Performed By: #### C MP, TROPHS, GFR, CBC, CBCPR, LAC, PRO, DIFF, MDW #### [place] [address] #### MORPH, APTT #### [facility] [address] [place], [place] [address] Platelet 377 10 3/mcL Normal 130-400 [facility] ([place]) Comment on above: Performed By: #### C MP, TROPHS, GFR, CBC, CBCPR, LAC, PRO, DIFF, PADMINI #### [place] [address] #### MORPH, APTT #### [facility] [address] [place], [place] [address] Platelet mean volume (Bld) [Entitic vol] 8.6 fL Normal 7.4-10.4 [facility] ([place] Comment on above: Performed By: #### C MP, TROPHS, GFR, CBC, CBCPR, LAC, PRO, DIFF, PADMINI #### [place] [address] #### MORPH, APTT #### [facility] [address] [place], [place] [address] RBC 2.21 10 6/mcL Low 4.04-6.13 [facility] ([place] Comment on above: Performed By: #### C MP, TROPHS, GFR, CBC, CBCPR, LAC, PRO, DIFF, PADMIIN #### [place] [address] #### MORPH, APTT #### [facility] [address] [place], [place] [address] WBC 52.1 10 3/mcL Critically abnormal 4.6-10.8 [facility] ([place] Comment on above: Performed By: #### C MP, TROPHS, GFR, CBC, CBCPR, LAC, PRO, DIFF, W #### [place] [address] #### MORPH, APTT #### [facility] [address] [place], [place] [address] CMPon 12-19-2022 Albumin Level 2.4 G/dL Low 3.4-4.8 [facility] ([place] Comment on above: Performed By: #### C MP, TROPHS, GFR, CBC, CBCPR, LAC, PRO, DIFF, PADMINI #### [place] [address] #### MORPH, APTT #### [facility] [address] [place], [place] [address] Albumin/Globulin [Mass ratio] 0.7 {ratio} Low 1.1-2.5 [facility] ([place] Comment on above: Performed By: #### C MP, TROPHS, GFR, CBC, CBCPR, LAC, PRO, DIFF, MDW #### [place] [address] #### MORPH, APTT #### [facility] [address] [place], [place] [address] ALP [Catalytic activity/Vol] 144 U/L High 40-135 [facility] ([place] Comment on above: Performed By: #### C MP, TROPHS, GFR, CBC, CBCPR, LAC, PRO, DIFF, MDW #### [place] [address] #### MORPH, APTT #### [facility] [address] [place], [place] [address] ALT [Catalytic activity/Vol] 45 U/L Normal 16-63 [facility] ([place] Comment on above: Performed By: #### C MP, TROPHS, GFR, CBC, CBCPR, LAC, PRO, DIFF, MDW #### [place] [address] #### MORPH, APTT #### [facility] [address] [place], [place] [address] AST [Catalytic activity/Vol] 23 U/L Normal 10-40 [facility] ([place] Comment on above: Performed By: #### C MP, TROPHS, GFR, CBC, CBCPR, LAC, PRO, DIFF, MDW #### [place] [address] #### MORPH, APTT #### [facility] [address] [place], [place] [address] Bili Total 0.7 mg/dL Normal 0.2-1.0 [facility] ([place]) Comment on above: Result Comment: Use of this assay is not recommended for patients undergoing treatment with eltrombopag due to the potential for falsely elevated results. Performed By: #### C MP, TROPHS, GFR, CBC, CBCPR, LAC, PRO, DIFF, W #### [place] [address] #### MORPH, APTT #### [facility] [address] [place], [place] [address] BUN/Creatinine Ratio 13 ratio Normal 7-27 [facility] ([place]) Comment on above: Performed By: #### C MP, TROPHS, GFR, CBC, CBCPR, LAC, PRO, DIFF, W #### [place] [address] #### MORPH, APTT #### [facility] [address] [place], [place] [address] Calcium [Mass/Vol] 8.6 mg/dL Normal 8.4-10.2 [facility] ([place]) Comment on above: Performed By: #### C MP, TROPHS, GFR, CBC, CBCPR, LAC, PRO, DIFF, PADMINI #### [place] [address] #### MORPH, APTT #### [facility] [address] [place], [place] [address] Chloride [Moles/Vol] 98 mmol/L Normal 98-107 [facility] ([place] Comment on above: Performed By: #### C MP, TROPHS, GFR, CBC, CBCPR, LAC, PRO, DIFF, MDW #### [place] [address] #### MORPH, APTT #### [facility] [address] [place], [place] [address] CO2 [Moles/Vol] 18 mmol/L Low 23-31 [facility] ([place] Comment on above: Performed By: #### C MP, TROPHS, GFR, CBC, CBCPR, LAC, PRO, DIFF, MDW #### [place] [address] #### MORPH, APTT #### [facility] [address] [place], [place] [address] Creatinine [Mass/Vol] 2.22 mg/dL High 0.70-1.30 [facility] ([place] Comment on above: Performed By: #### C MP, TROPHS, GFR, CBC, CBCPR, LAC, PRO, DIFF, MDW #### [place] [address] #### MORPH, APTT #### [facility] [address] [place], [place] [address] Electrolyte Balance 14.0 mEq/L Normal 4.0-15.0 [facility] ([place]) Comment on above: Performed By: #### C MP, TROPHS, GFR, CBC, CBCPR, LAC, PRO, DIFF, MDW #### [place] [address] #### MORPH, APTT #### [facility] [address] [place], [place] [address] Globulin 3.6 G/dL Normal [facility] ([place] Comment on above: Performed By: #### C MP, TROPHS, GFR, CBC, CBCPR, LAC, PRO, DIFF, MDW #### [place] [address] #### MORPH, APTT #### [facility] [address] [place], [place] [address] Glucose [Mass/Vol] 151 mg/dL High 80-115 [facility] ([place] Comment on above: Performed By: #### C MP, TROPHS, GFR, CBC, CBCPR, LAC, PRO, DIFF, MDW #### [place] [address] #### MORPH, APTT #### [facility] [address] [place] [address] Potassium [Moles/Vol] 4.4 mmol/L Normal 3.5-5.1 [facility] ([place]) Comment on above: Performed By: #### C MP, TROPHS, GFR, CBC, CBCPR, LAC, PRO, DIFF, MDW #### [place] [address] #### MORPH, APTT #### [facility] [address] [place], [place] [address] Sodium [Moles/Vol] 130 mmol/L Low 136-145 [facility] ([place] Comment on above: Performed By: #### C MP, TROPHS, GFR, CBC, CBCPR, LAC, PRO, DIFF, MDW #### [place] [address] #### MORPH, APTT #### [facility] [address] [place], [place] [address] Total Protein 6.0 G/dL Low 6.4-8.2 [facility] ([place] Comment on above: Performed By: #### C MP, TROPHS, GFR, CBC, CBCPR, LAC, PRO, DIFF, MDW #### [place] [address] #### MORPH, APTT #### [facility] [address] [place], [place] [address] Urea nitrogen [Mass/Vol] 28 mg/dL High 7-18 [facility] ([place] Comment on above: Performed By: #### C MP, TROPHS, GFR, CBC, CBCPR, LAC, PRO, DIFF, MDW #### [place] [address] #### MORPH, APTT #### [facility] [address] [place], [place] [address] [id number] 12-19-2022 SARS-CoV-2 (COVID-19) RNA MYA+probe Ql (Unsp spec) Negative Normal Negative [facility] ([place] Comment on above: Performed By: #### F LURSV, COVD19 ####[facility] [place], [place] [address] SARS-CoV-2 (COVID-19) RNA MYA+probe Ql (Unsp spec) Normal [facility] ([place]) Comment on above: Result Comment: Nega tive [...] Int Performed By: #### F SHANTEL, COVD19 ####[facility] [place], [place] [address] CT HEAD OR BRAIN W/O CONTRMOISES Ton 12-19-2022 CT HEAD OR BRAIN W/O [...] 12/19/2022 1:15:57 PM Ordering Provider: SAM RICO [facility] ([place] SPINE CERVICAL W/O CONTRA Omega 12-19-2022 [...] 12/19/2022 1:17:30 PM Ordering Provider: SAM RICO [facility] ([place] THORAX W/O CONTRASTon CT THORAX W/O [...] SOB FINDINGS: Subcentimeter tiny thyroid lobe nodules. 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 The test is intended for use as an aid in the differential diagnosis of influenza A virus, influenza B virus, and RSV in humans and is not intended to detect influenza C. Performed By: #### F SHANTEL COVD19 ####[facility] [address] [place], [place] [address] Flu B PCR (AO) Negative Normal Negative [facility] ([place]) Comment on above: Result Comment: Posi tive [...] REPEAT COLLECTION AND TESTING IS RECOMMENDED. [employer] Flu A/B & RSV Assay is a real-time polymerase chain reaction (PCR) based qualitative in vitro diagnostic test for the direct detection and differentiation of influenza A virus, influenza B virus, and respiratory syncytial virus (RSV) nucleic acid in nasopharyngeal swab (CTRS) specimens from patients with signs and symptoms of respiratory infection in conjunction with clinical and laboratory findings. The test is intended for use as an aid in the differential diagnosis of influenza A virus, influenza B virus, and RSV in humans and is not intended to detect influenza C. Performed By: #### F SHANTEL COVD19 ####[facility] [address] [place], [place] [address] RSV PCR (AO) Negative Normal Negative [facility] ([place]) Comment on above: Result Comment: Posi tive [...] REPEAT COLLECTION AND TESTING IS RECOMMENDED. [employer] Flu A/B & RSV Assay is a real-time polymerase chain reaction (PCR) based qualitative in vitro diagnostic test for the direct detection and differentiation of influenza A virus, influenza B virus, and respiratory syncytial virus (RSV) nucleic acid in nasopharyngeal swab (CTRS) specimens from patients with signs and symptoms of respiratory infection in conjunction with clinical and laboratory findings. The test is intended for use as an aid in the differential diagnosis of influenza A virus, influenza B virus, and RSV in humans and is not intended to detect influenza C. Performed By: #### F SHANTEL COVD19 ####[facility] [address] [place] [address] LACon 12-19-2022 Lactic Acid Lvl 1.5 mmol/L Normal 0.4-2.0 [facility] ([place]) Comment on above: Order Comment: Order ed secondary to Lactic Acid result greater than or equal to 2.0 Performed By: #### L AC ####[place] [address] Lactic Acid Lvl 3.4 mmol/L High 0.4-2.0 [facility] ([place]) Comment on above: Performed By: #### C MP, TROPHS, GFR, CBC, CBCPR, LAC, PRO, DIFF, MDW ####[place] [address]#### MORPH, APTT ####[facility] [address] [place] [id number] Leukodepleted Red Cells Rele [facility] 12-19-2022 Product Code E0336 [facility] Comment on above: Performed By: #### R LRC #### [place] [address] Rel By [facility] Comment on above: Performed By: #### R LRC #### [place] [address] Rel Date 12/19/2022 [facility] Comment on above: Performed By: #### R LRC #### [facility] [address] [place] [address] Rel Time 2115 [facility] Comment on above: Performed By: #### R LRC #### [facility] [address] [place] [address] Rel To DB [facility] Comment on above: Performed By: #### R LRC #### [facility] [address] [place] [address] [id number] [facility] Comment on above: Performed By: #### R LRC #### [facility] [address] [place] [address] PROon 12-19-2022 PT Coag (PPP) [Time] 20.4 s High 9.0-14.2 [facility] ([place]) Comment on above: Performed By: #### C MP, TROPHS, GFR, CBC, CBCPR, LAC, PRO, DIFF, PADMINI #### [place] [address] #### MORPH, APTT #### [facility] [address] [place] [id number] PT International Ratio 1.8 [facility] ([place]) Comment on above: Result Comment: The [place] [employer] (CHEST, 1991, 102:312S-25S) recommended therapeutic range for oral anticoagulant therapy is: LOW RISK: Prophylaxis of venous thrombosis INR: 2.0-3.0 Treatment of pulmonary embolism 2.0-3.0 Prevention of systemic embolism 2.0-3.0 HIGH RISK: Mechanical prosthetic valves 2.5-3.5 Performed By: #### C MP, TROPHS, GFR, CBC, CBCPR, LAC, PRO, DIFF, W #### [place] [address] #### MORPH, APTT #### [facility] [address] [place], [place] [address] TROPHSon 12-19-2022 Troponin I High Sensitivity 428.3 ng/L High 0.0-76.2 [facility] ([place]) Comment on above: Performed By: #### T ROPHS ####[place] [address] Troponin I High Sensitivity 144.9 ng/L High 0.0-76.2 [facility] ([place]) Comment on above: Performed By: #### C MP, TROPHS, GFR, CBC, CBCPR, LAC, PRO, DIFF, MDW #### [facility] [address] [place] [address] #### MORPH, APTT #### [facility] [address] [place], [place] [address] UAon 12-19-2022 Color (U) Yellow Normal [facility] ([place] Comment on above: Performed By: #### U A, UAMICAO #### [facility] [place] [address] [place], [place] [address] Glucose (U) [Mass/Vol] Negative Normal Negative [facility] ([place] Comment on above: Performed By: #### U A, UAMICAO #### [facility] [place] [address] [place], [place] [address] Ketones Ql (U) Negative Normal Negative [facility] ([place] Comment on above: Performed By: #### U A, UAMICAO #### [facility] [place] [address] [place], [place] [address] UA Appear Slightly Cloudy Abnormal Clear [facility] ([place] Comment on above: Performed By: #### U A, UAMICAO #### [facility] [place] [address] [place], [place] [address] UA Blood Negative Normal Negative [facility] ([place] Comment on above: Performed By: #### U A, UAMICAO #### [facility] [place] [address] [place], [place] [address] UA Leuk Est Negative Normal Negative [facility] ([place] Comment on above: Performed By: #### U A, UAMICAO #### [facility] [place] [address] [place], [place] [address] UA Nitrite Negative Normal Negative [facility] ([place]) Comment on above: Performed By: #### U A, UAMICAO #### [facility] [address] [place], [place] [address] UA pH 5.5 Normal 5.0 - 8.0 [facility] ([place] Comment on above: Performed By: #### U A, UAMICAO #### [facility] [address] [place], [place] [address] UA Protein 100 mg/dL Abnormal Negative [facility] ([place] Comment on above: Performed By: #### U A, UAMICAO #### [facility] [place] [address] [place], [place] [address] UA Spec Grav 1.015 Normal 1.015-1.025 [facility] ([place] Comment on above: Performed By: #### U A, UAMICAO #### [facility] [address] [place], [place] [address] UA Specimen Type Catheter Normal [facility] ([place] Comment on above: Performed By: #### U A, UAMICAO #### [facility] [address] [place], [place] [address] UA Urobilinogen 0.2 E.U./dL Normal 0.2-1.0 [facility] ([place] Comment on above: Performed By: #### U A, UAMICAO #### [facility] [address] [place], [place] [address] Urobilinogen (U) [Mass/Vol] Negative Normal Negative [facility] ([place] Comment on above: Performed By: #### U A, UAMICAO #### [facility] [address] [place], [place] [address] CNOVon 12-13-2022 CNOV Office Visit ([facility] ) ADINA DAVID ([id number]) 1955 M Date Time Provider Department 12/13/22 10:30 AM NAKUL GALLEGOS [facility] During your visit today, we recorded the following information about you: Temperature Pulse Respiration Blood pressure 96.7 degrees 107/minute 16/minute 134/76 Height 1.778 m Nakul Gallegos MD 12/13/2022 12:59 PM Signed [facility] DEPARTMENT OF PULMONARY MEDICINE Date: December 13, 2022 Patient Name: Adina David Adina David is a 67 year old yr old male, presents to the [facility] [place] for evaluation of CIRA and insomnia. Patient [...] for internal providers or letter via the [employer] for external providers. Patient Entered Questionnaires: PROMIS Global Health - (T-Scores - the mean of general population = 50. Five points is a clinically meaningful difference.) 05/31/2022 05/31/2022 12/05/2021 Physical T-Score 29.6 29.6 34.9 Mental T-Score 36.3 36.3 - Modified Medical Research [place] Dyspnea Scale (MMRC) I am too breathless to leave the house or I am breathless when dressing 4 Daily cough: Yes Daily Sputum: Yes IMMUNIZATIONS: Immunization History Administered Date(s) Administered COVID-19 original vaccine, age 12+ yr, monovalent ([employer]) 07/24/2021 COVID-19 original vaccine, [...] live (ZOSTAVAX (more content not included)... Normal [facility] ADINA DAVID ([id number]) 1955 M Date Time Provider Department 12/12/22 ULISES RAMOS [facility] During your visit today, we recorded the following information about you: Allergies As of Date: 12/12/2022 Noted Allergy Reaction DOXYCYCLINE 07/17/2021 5 - Intolerance Comments: Rash, diarrhea PENICILLIN 02/22/2017 4 - Hives PENICILLIN V POTASSIUM 12/20/2021 14 - Other: See Comments Date Reviewed: 12/05/2022 Reviewed by: Amy Bach, RN - Fully Assessed Prescriptions as of 12/12/2022 - mjkzkcvmfjm-ktbpyipic-mmwvb ter (TRELEGY ELLIPTA) 100-62.5-25 mcg inhalation powder [...] unspecified chronicity, uns*12/01/2022 Coronary artery disease involving [place] falcon*12/02/2022 Other emphysema (HCC) [J43.8] 12/02/2022 Chronic [...] Status:Closed by DARRELL DOUGLAS on 12/12/22 Normal [facility] Basic metabolic 2000 panelon 12-11-2022 Anion gap [Moles/Vol] 15 mmol/L Normal 9-18 [facility] Comment on above: Order Comment: Speci men Type: BLOOD SPECIMENOrdering Facility: [facility] Address: [address] [place] [address] Performed By: #### 1 9123-9, 06804-6 ####[facility] LABCLIA [id number] [place] [address] [place] Calcium [Mass/Vol] 10.4 mg/dL High 8.5-10.2 [facility] Comment on above: Order Comment: Speci men Type: BLOOD SPECIMENOrdering Facility: [facility] Address: [address] Performed By: #### 1 9123-9, 55578-7 ####[facility] LABCLIA [id number] [place] [address] [place] Chloride [Moles/Vol] 102 mmol/L Normal 97-105 [facility] Comment on above: Order Comment: Speci men Type: BLOOD SPECIMENOrdering Facility: [facility] Address: [address] [place], [place] [address] Performed By: #### 1 239, 32947-6 ####[facility] LABCLIA [id number] [place] [address] [place] CO2 [Moles/Vol] 20 mmol/L Low 22-30 [facility] Comment on above: Order Comment: Speci men Type: BLOOD SPECIMENOrdering Facility: [facility] Address: [address] Performed By: #### 1 9123-9, 78246-6 ####[facility] LABCLIA [id number] [place] [address] [place] Creatinine [Mass/Vol] 2.33 mg/dL High 0.73-1.22 [facility] Comment on above: Order Comment: Kaylee christianson Type: BLOOD SPECIMENOrdering Facility: [facility] Address: [address] [place] [address] Performed By: #### 1 9123-9, 43539-9 ####[facility] [id number] [address] [facility] Creatinine and Glomerular filtration rate.predicted panel (S/P/Bld) 30 mL/min/1.73m??? Low >=60 [facility] Comment on above: Order Comment: Kaylee christianson Type: BLOOD SPECIMENOrdering Facility: [facility] Address: [address] [place] [address] Result Comment: Mady mated Glomerular Filtration Rate [...] actual GFR. Performed By: #### 1 9123-9, ####[facility] [id number] [place] [address] [place] Glucose [Mass/Vol] 107 mg/dL High 74-99 [facility] Comment on above: Order Comment: Kaylee meghan Type: BLOOD SPECIMENOrdering Facility: [facility] Address: [address] [place] [address] Result Comment: The [place] [employer] Association (ADA) provides guidance for cutoff [...] Standards of Medical Care in Diabetes 2016, [place] [employer] Association. Diabetes Care. 2016.39(Suppl 1). Performed By: #### 1 9123-9, 20923-4 ####[facility] LABCLIA [id number] [place] [address] [place] Potassium [Moles/Vol] 4.6 mmol/L Normal 3.7-5.1 [facility] Comment on above: Order Comment: Kaylee christianson Type: BLOOD SPECIMENOrdering Facility: [facility] Address: [address] [place] [address] Performed By: #### 1 [address]1239, 28007-9 ####[facility] LABCLIA [id number] [place] [address] [place] Sodium [Moles/Vol] 137 mmol/L Normal 136-144 [facility] Comment on above: Order Comment: Kaylee christianson Type: BLOOD SPECIMENOrdering Facility: [facility] Address: [address] [place] [address] Performed By: #### 1 [address], ####[facility] LABCLIA [id number] [place] [address] [place] Urea nitrogen [Mass/Vol] 45 mg/dL High 9-24 [facility] Comment on above: Order Comment: Noyi men Type: BLOOD SPECIMENOrdering Facility: [facility] Address: [address] Performed By: #### 1 9123, 14224-9 ####[facility] LABCLIA [id number] [place] [id number] [place] CBC panel Auto (Bld)on 12-11 Erythrocyte distribution width (RBC) [Ratio] 17.2 % High 11.5-15.0 [facility] Comment on above: Order Comment: Speci men Type: BLOOD SPECIMENOrdering Facility: [facility] Address: [address] [place] [address] Performed By: #### 5 8410-2 ####[facility] LABIA [id number] [address] [place] Hematocrit (Bld) [Volume fraction] 28.3 % Low 39.0-51.0 [facility] Comment on above: Order Comment: Speci men Type: BLOOD SPECIMENOrdering Facility: [facility] Address: [address] [place] [address] Performed By: #### 5 8410-2 ####[facility] LABIA [id number] [address] [place] Hemoglobin (Bld) [Mass/Vol] 8.4 g/dL Low 13.0-17.0 [facility] Comment on above: Order Comment: Speci men Type: BLOOD SPECIMENOrdering Facility: [facility] Address: [address] [place], [place] [address] Performed By: #### 5 8410-2 ####[facility] LABIA [id number] [address] [place] MCH (RBC) [Entitic mass] 33.3 pg Normal 26.0-34.0 [facility] Comment on above: Order Comment: Speci men Type: BLOOD SPECIMENOrdering Facility: [facility] Address: [address] Performed By: #### 5 8410-2 ####[facility] LABIA [id number] [address] [place] MCHC (RBC) [Mass/Vol] 29.7 g/dL Low 30.5-36.0 [facility] Comment on above: Order Comment: Speci men Type: BLOOD SPECIMENOrdering Facility: [facility] Address: [address] [place] [address] Performed By: #### 5 8410-2 ####[facility] LABCLIA [id number] [address] [place] MCV (RBC) [Entitic vol] 112.3 fL High 80.0-100.0 [facility] Comment on above: Order Comment: Speci men Type: BLOOD SPECIMENOrdering Facility: [facility] Address: [address] [place] [address] Performed By: #### 5 8410-2 ####[facility] LABIA [id number] [place] [address] [place] Nucleated RBC (Bld) [#/Vol] 10*3/uL Normal <0.01 [facility] [facility] Comment on above: Order Comment: Speci men Type: BLOOD SPECIMENOrdering Facility: [facility] Address: [address] [place], [place] [address] Performed By: #### 5 8410-2 ####[facility] LABIA [id number] [place] [address] [place] Platelet mean volume (Bld) [Entitic vol] 9.5 fL Normal 9.0-12.7 [facility] Comment on above: Order Comment: Speci men Type: BLOOD SPECIMENOrdering Facility: [facility] Address: [address] [place] [address] Performed By: #### 5 8410-2 ####[facility] LABCLIA [id number] [place] [address] [place] Platelets (Bld) [#/Vol] 423 10*3/uL High 150-400 [facility] Comment on above: Order Comment: Speci men Type: BLOOD SPECIMENOrdering Facility: [facility] Address: [address] [place] [address] Performed By: #### 5 8410-2 ####[facility] LABCLIA [id number] [place] [address] [place] RBC (Bld) [#/Vol] 2.52 10*6/uL Low 4.20-6.00 [facility] Comment on above: Order Comment: Speci men Type: BLOOD SPECIMENOrdering Facility: [facility] Address: [address] [place] [address] Performed By: #### 5 8410-2 ####[facility] LABCLIA [id number] [address] WBC (Bld) [#/Vol] 37.75 10*3/uL High 3.70-11.00 [facility] Comment on above: Order Comment: Speci men Type: BLOOD SPECIMENOrdering Facility: [facility] Address: [address] [place] [address] Performed By: #### 5 8410-2 ####[facility] LABCLIA [id number] [address] [facility] CNDSon 12-11-2022 CNDS HNO ID: [id number] Author: Carole Pascal MD Service: General Internal [...] Yes) Active Problems: Coronary artery disease involving [place] coronary artery of [place] heart without angina pectoris (POA: Unknown) Other [...] group. Antic (more content not included)... Normal [facility] CONSULT PROGon 12-11-2022 CONSULT PROG HNO ID: [id number] Author: Yolette Grajeda APRN.CYLINDER TESTER Service: Vascular Medicine Author Type: Nurse Practitioner [...] December 11, 2022 TIME: 12:07 PM pager: [phone] . Normal [facility] Magnesium SerPl-mCncon 12-11 Magnesium [Mass/Vol] 1.5 mg/dL Low 1.7-2.3 [facility] Comment on above: Order Comment: Speci men Type: BLOOD SPECIMENOrdering Facility: [facility] Address: [address] [place] [address] Performed By: #### 1 9123-9, 20415-6 ####[facility] LABCLIA [id number] [address] [facility] THERAPY NTon 12-11-2022 THERAPY NT HNO ID: [id number] Author: Eileen Maldonado, PT, DPT Service: Physical Therapy Author Type: Physical Therapist Type: Therapy (PT/OT/Speech/Resp) Filed: 12/11/2022 9:06 AM Note Text: PHYSICAL THERAPY COMMUNICATION NOTE SERVICE DATE: 12/11/2022 SERVICE TIME: 905 ROOM: [place] [address] Physical therapy consult received. Chart reviewed. No [...] December 11, 2022 TIME: 9:06 AM Normal [facility] TYPE + SCREENon 12-11-2022 ABO B Normal [facility] Comment on above: Order Comment: Speci men Type: BLOOD SPECIMENOrdering Facility: [facility] Address: [address] [place] [address] Performed By: #### T SCR ####[facility] BLOOD BANKCLIA [id number] [address] [facility] HISTORICAL AB SCR STATUS Negative Normal [facility] Comment on above: Order Comment: Speci men Type: BLOOD SPECIMENOrdering Facility: [facility] Address: [address] Performed By: #### T SCR ####[facility] BLOOD BANKCLIA [id number] [address] [place] Rh Nom (Bld) Positive Normal [facility] Comment on above: Order Comment: Speci men Type: BLOOD SPECIMENOrdering Facility: [facility] Address: [address] Performed By: #### T SCR ####[facility] BLOOD BANKCLIA [id number] [place] [address] [place] [address] [facility] TYPE AND SCREEN EXPIRATION 12/14/2022 23:59 Normal [facility] Comment on above: Order Comment: Speci men Type: BLOOD SPECIMENOrdering Facility: [facility] Address: [address] [place] [address] Performed By: #### T SCR ####[facility] BLOOD BANKCLIA [id number] [place] [address] [place] Basic metabolic 2000 panelon 12-10-2022 Anion gap [Moles/Vol] 14 mmol/L Normal 9-18 [facility] Comment on above: Order Comment: Speci men Type: BLOOD SPECIMENOrdering Facility: [facility] Address: [address] Performed By: #### 1 9123-9, 61165-5 ####[facility] LABCLIA [id number] [address] [place] Calcium [Mass/Vol] 10.9 mg/dL High 8.5-10.2 [facility] Comment on above: Order Comment: Speci men Type: BLOOD SPECIMENOrdering Facility: [facility] Address: [address] Performed By: #### 1 9123-9, 33940-8 ####[facility] LABCLIA [id number] [address] STATES OF [facility] Chloride [Moles/Vol] 100 mmol/L Normal 97-105 [facility] Comment on above: Order Comment: Speci men Type: BLOOD SPECIMENOrdering Facility: [facility] Address: [address] [place] [address] Performed By: #### 1 9123-9, 92545-0 ####[facility] LABIA [id number] [address] [facility] CO2 [Moles/Vol] 19 mmol/L Low 22-30 [facility] Comment on above: Order Comment: Speci men Type: BLOOD SPECIMENOrdering Facility: [facility] Address: [address] [place] [address] Performed By: #### 1 9123-9, 36505-0 ####[facility] LABIA [id number] [address] Creatinine [Mass/Vol] 2.26 mg/dL High 0.73-1.22 [facility] Comment on above: Order Comment: Speci men Type: BLOOD SPECIMENOrdering Facility: [facility] Address: [address] [place] [address] Performed By: #### 1 9123-9, 25099-8 ####[facility] LABIA [id number] [address] Creatinine and Glomerular filtration rate.predicted panel (S/P/Bld) 31 mL/min/1.73m??? Low >=60 [facility] Comment on above: Order Comment: Speci men Type: BLOOD SPECIMENOrdering Facility: [facility] Address: [address] [place] [address] Result Comment: Mady mated Glomerular Filtration Rate [...] actual GFR. Performed By: #### 1 9123-9, 66645-5 ####[facility] LABIA [id number] [address] [address] [place] Glucose [Mass/Vol] 85 mg/dL Normal 74-99 [facility] Comment on above: Order Comment: Speci men Type: BLOOD SPECIMENOrdering Facility: [facility] Address: [address] [place] [address] Result Comment: The [place] [employer] (ADA) provides guidance for cutoff [...] Standards of Medical Care in Diabetes 2016, [place] [employer]. Diabetes Care. 2016.39(Suppl 1). Performed By: #### 1 9123-9, 63705-3 ####[facility] LABIA [id number] [place] [address] [place] Potassium [Moles/Vol] 5.3 mmol/L High 3.7-5.1 [facility] Comment on above: Order Comment: Noyi men Type: BLOOD SPECIMENOrdering Facility: [facility] Address: [address] [place] [address] Performed By: #### 1 9123-9, 29069-4 ####[facility] LABIA [id number] [address] [address] [place] Sodium [Moles/Vol] 133 mmol/L Low 136-144 [facility] Comment on above: Order Comment: Speci men Type: BLOOD SPECIMENOrdering Facility: [facility] Address: [address] Performed By: #### 1 9123-9, 07478-1 ####[facility] LABIA [id number] [place] [address] [place] Urea nitrogen [Mass/Vol] 41 mg/dL High 9-24 [facility] Comment on above: Order Comment: Speci men Type: BLOOD SPECIMENOrdering Facility: [facility] Address: [address] [place] [address] Performed By: #### 1 9123-9, 23449-5 ####[facility] LABIA [id number] [place] [address] [place] CBC panel Auto (Bld)on 12-10 Erythrocyte distribution width (RBC) [Ratio] 17.2 % High 11.5-15.0 [facility] Comment on above: Order Comment: Speci men Type: BLOOD SPECIMENOrdering Facility: [facility] Address: [address] [place] [address] Performed By: #### 5 8410-2 ####[facility] LABIA [id number] [place] [address] [place] Hematocrit (Bld) [Volume fraction] 28.8 % Low 39.0-51.0 [facility] Comment on above: Order Comment: Speci men Type: BLOOD SPECIMENOrdering Facility: [facility] Address: [address] [place], [place] [address] Performed By: #### 5 8410-2 ####[facility] LABIA [id number] [place] [address] [place] Hemoglobin (Bld) [Mass/Vol] 8.7 g/dL Low 13.0-17.0 [facility] Comment on above: Order Comment: Speci men Type: BLOOD SPECIMENOrdering Facility: [facility] Address: [address] Performed By: #### 5 8410-2 ####[facility] LABIA [id number] [address] MCH (RBC) [Entitic mass] 33.6 pg Normal 26.0-34.0 [facility] Comment on above: Order Comment: Speci men Type: BLOOD SPECIMENOrdering Facility: [facility] Address: [address] [place], [place] [address] Performed By: #### 5 8410-2 ####[facility] [id number] [address] [place] MCHC (RBC) [Mass/Vol] 30.2 g/dL Low 30.5-36.0 [facility] Comment on above: Order Comment: Speci men Type: BLOOD SPECIMENOrdering Facility: [facility] Address: [address] [place], [place] [address] Performed By: #### 5 8410-2 ####[facility] [id number] [place] [address] [place] MCV (RBC) [Entitic vol] 111.2 fL High 80.0-100.0 [facility] Comment on above: Order Comment: Speci men Type: BLOOD SPECIMENOrdering Facility: [facility] Address: [address] [place], [place] [address] Performed By: #### 5 8410-2 ####[facility] [id number] [address] [place] Nucleated RBC (Bld) [#/Vol] 10*3/uL Normal <0.01 [facility] Comment on above: Order Comment: Speci men Type: BLOOD SPECIMENOrdering Facility: [facility] Address: [address] [place] [address] Performed By: #### 5 8410-2 ####[facility] [id number] [place] [address] [place] Platelet mean volume (Bld) [Entitic vol] 9.4 fL Normal 9.0-12.7 [facility] Comment on above: Order Comment: Speci men Type: BLOOD SPECIMENOrdering Facility: [facility] Address: [address] [place] [address] Performed By: #### 5 8410-2 ####[facility] LABCLIA [id number] [place] [address] [place] Platelets (Bld) [#/Vol] 446 10*3/uL High 150-400 [facility] Comment on above: Order Comment: Speci men Type: BLOOD SPECIMENOrdering Facility: [facility] Address: [address] [place] [address] Performed By: #### 5 8410-2 ####[facility] LABCLIA [id number] [place] [address] [place] RBC (Bld) [#/Vol] 2.59 10*6/uL Low 4.20-6.00 [facility] Comment on above: Order Comment: Speci men Type: BLOOD SPECIMENOrdering Facility: [facility] Address: [address] [place], [place] [address] Performed By: #### 5 8410-2 ####[facility] LABIA [id number] [place] [address] [place] WBC (Bld) [#/Vol] 43.34 10*3/uL High 3.70-11.00 [facility] Comment on above: Order Comment: Speci men Type: BLOOD SPECIMENOrdering Facility: [facility] Address: [address] [place], [place] [address] Performed By: #### 5 8410-2 ####[facility] LABCLIA [id number] [place] [address] [place] CONSULT PROGon 12-10-2022 CONSULT PROG HNO ID: [id number] Author: Sophie Avila APRN.CYLINDER TESTER Service: Vascular Medicine Author Type: Nurse Practitioner [...] coagulation -CAD s/p LAD PCI w/ MARTIN (2019) -CKD 3 -CIRA -COPD -BPH -diverticulosis c/b [...] December 10, 2022 TIME: 12:46 PM pager: [phone] . Normal [facility] Magnesium SerPl-ncon 12-10 Magnesium [Mass/Vol] 1.7 mg/dL Normal 1.7-2.3 [facility] Comment on above: Order Comment: Speci men Type: BLOOD SPECIMENOrdering Facility: [facility] Address: [address] [place] [address] Performed By: #### 1 9123-9, 19872-7 ####[facility] LABCLIA [id number] [address] [facility] NUTRITIONon 12-10-2022 NUTRITION HNO ID: [id number] Author: Tony Powell RD Service: Nutrition Therapy [...] Weight loss, Imaging studies Estimated kilocalorie needs: 5627-0109 Calorie Calculation Method: 25-30 kcals/kg Estimated protein [...] December 10, 2022 TIME: 10:57 AM Normal [facility] Basic metabolic 2000 panelon 12-09-2022 Anion gap [Moles/Vol] 13 mmol/L Normal 9-18 [facility] Comment on above: Order Comment: Speci men Type: BLOOD SPECIMENOrdering Facility: [facility] Address: [address] [place] [address] Performed By: #### 2 4321-2, ####[facility] LABCLIA [id number] [place] [address] [place] Calcium [Mass/Vol] 10.2 mg/dL Normal 8.5-10.2 [facility] Comment on above: Order Comment: Speci men Type: BLOOD SPECIMENOrdering Facility: [facility] Address: [address] [place], [place] [address] Performed By: #### 2 4320-2, ####[facility] LABCLIA [id number] [place] [address] [place] Chloride [Moles/Vol] 101 mmol/L Normal 97-105 [facility] Comment on above: Order Comment: Speci men Type: BLOOD SPECIMENOrdering Facility: [facility] Address: [address] [place], [place] [address] Performed By: #### 2 2, ####[facility] LABCLIA [id number] [place] [address] [place] CO2 [Moles/Vol] 19 mmol/L Low 22-30 [facility] Comment on above: Order Comment: Speci men Type: BLOOD SPECIMENOrdering Facility: [facility] Address: [address] [place], [place] [address] Performed By: #### 2 2, ####[facility] LABCLIA [id number] [place] [address] [place] Creatinine [Mass/Vol] 2.10 mg/dL High 0.73-1.22 [facility] Comment on above: Order Comment: Speci men Type: BLOOD SPECIMENOrdering Facility: [facility] Address: [address] [place] [address] Performed By: #### 2 4321-2, ####[facility] LABIA [id number] [address] [place] Creatinine and Glomerular filtration rate.predicted panel (S/P/Bld) 33 mL/min/1.73m??? Low >=60 [facility] Comment on above: Order Comment: Kaylee christianson Type: BLOOD SPECIMENOrdering Facility: [facility] Address: [address] [place] [address] Result Comment: Mady mated Glomerular Filtration Rate [...] actual GFR. Performed By: #### 2 4321-2, ####[facility] LABIA [id number] [place] [address] [place] Glucose [Mass/Vol] 102 mg/dL High 74-99 [facility] Comment on above: Order Comment: Kaylee meghan Type: BLOOD SPECIMENOrdering Facility: [facility] Address: [address] [place] [address] Result Comment: The [place] [employer] (ADA) provides guidance for cutoff [...] Standards of Medical Care in Diabetes 2016, [place] [employer]. Diabetes Care. 2016.39(Suppl 1). Performed By: #### 2 432-2, ####[facility] LABIA [id number] [place] [address] [place] Potassium [Moles/Vol] 4.7 mmol/L Normal 3.7-5.1 [facility] Comment on above: Order Comment: Speci men Type: BLOOD SPECIMENOrdering Facility: [facility] Address: [address] [place] [address] Performed By: #### 2 43204-15, ####[facility] LABIA [id number] [place] [address] [place] Sodium [Moles/Vol] 133 mmol/L Low 136-144 [facility] Comment on above: Order Comment: Speci men Type: BLOOD SPECIMENOrdering Facility: [facility] Address: [address] [place] [address] Performed By: #### 2 43204-15, ####[facility] LABIA [id number] [place] [address] [place] Urea nitrogen [Mass/Vol] 35 mg/dL High 9-24 [facility] Comment on above: Order Comment: Speci men Type: BLOOD SPECIMENOrdering Facility: [facility] Address: [address] Performed By: #### 2 4320-05, ####[facility] LABIA [id number] [place] [address] [place] CBC panel Auto (Bld)on 12-09 Erythrocyte distribution width (RBC) [Ratio] 17.1 % High 11.5-15.0 [facility] Comment on above: Order Comment: Speci men Type: BLOOD SPECIMENOrdering Facility: [facility] Address: [address] [place] [address] Performed By: #### 5 8410-2 ####[facility] LABIA [id number] [place] [address] [place] Hematocrit (Bld) [Volume fraction] 27.9 % Low 39.0-51.0 [facility] Comment on above: Order Comment: Speci men Type: BLOOD SPECIMENOrdering Facility: [facility] Address: [address] [place] [address] Performed By: #### 5 8410-2 ####[facility] [id number] [address] [place] Hemoglobin (Bld) [Mass/Vol] 8.5 g/dL Low 13.0-17.0 [facility] Comment on above: Order Comment: Speci men Type: BLOOD SPECIMENOrdering Facility: [facility] Address: [address] [place] [address] Performed By: #### 5 8410-2 ####[facility] [id number] [address] [place] MCH (RBC) [Entitic mass] 33.9 pg Normal 26.0-34.0 [facility] Comment on above: Order Comment: Speci men Type: BLOOD SPECIMENOrdering Facility: [facility] Address: [address] [place] [address] Performed By: #### 5 8410-2 ####[facility] [id number] [address] [place] MCHC (RBC) [Mass/Vol] 30.5 g/dL Normal 30.5-36.0 [facility] Comment on above: Order Comment: Speci men Type: BLOOD SPECIMENOrdering Facility: [facility] Address: [address] [place] [address] Performed By: #### 5 8410-2 ####[facility] [id number] [address] [place] MCV (RBC) [Entitic vol] 111.2 fL High 80.0-100.0 [facility] Comment on above: Order Comment: Speci men Type: BLOOD SPECIMENOrdering Facility: [facility] Address: [address] [place], [place] [address] Performed By: #### 5 8410-2 ####[facility] LABCLIA [id number] [place] [address] [place] Nucleated RBC (Bld) [#/Vol] 10*3/uL Normal <0.01 [facility] Comment on above: Order Comment: Speci men Type: BLOOD SPECIMENOrdering Facility: [facility] Address: [address] [place], [place] [address] Performed By: #### 5 8410-2 ####[facility] LABIA [id number] [place] [address] [place] Platelet mean volume (Bld) [Entitic vol] 9.4 fL Normal 9.0-12.7 [facility] Comment on above: Order Comment: Speci men Type: BLOOD SPECIMENOrdering Facility: [facility] Address: [address] [place], [place] [address] Performed By: #### 5 8410-2 ####[facility] LABIA [id number] [place] [address] [place] Platelets (Bld) [#/Vol] 421 10*3/uL High 150-400 [facility] Comment on above: Order Comment: Speci men Type: BLOOD SPECIMENOrdering Facility: [facility] Address: [address] [place] [address] Performed By: #### 5 8410-2 ####[facility] LABCLIA [id number] [place] [address] [place] RBC (Bld) [#/Vol] 2.51 10*6/uL Low 4.20-6.00 [facility] Comment on above: Order Comment: Speci men Type: BLOOD SPECIMENOrdering Facility: [facility] Address: [address] [place] [id number] Performed By: #### 5 8410-2 ####[facility] LABIA [id number] [place] [address] [place] WBC (Bld) [#/Vol] 34.52 10*3/uL High 3.70-11.00 [facility] Comment on above: Order Comment: Speci men Type: BLOOD SPECIMENOrdering Facility: [facility] Address: [address] Performed By: #### 5 8410-2 ####[facility] LABIA [id number] [address] [place] CNCOon 12-09-2022 CNCO Letter Text Normal [facility] CONSULTon 12-09-2022 CONSULT HNO ID: [id number] Author: Kristi Humphreys MD Service: Hematology/Oncology Author [...] recommend close follow-up with the patient's outpatient sedimentationist once his current clinical picture improves enough [...] Levin MD Date: 12/10/2022 Time: 10:[address] [facility] LYMPHOMA/MYELOMA SERVICE - INITIAL CONSULT DATE OF [...] Infectious work (more content not included)... Normal [facility] Magnesium SerPl[facility] Magnesium [Mass/Vol] 1.7 mg/dL Normal 1.7-2.3 [facility] Comment on above: Order Comment: Speci men Type: BLOOD SPECIMENOrdering Facility: [facility] Address: [address] [facility] [address] [address] [place] [id number] Performed By: #### 2 4321-2, 79110-6 ####[facility] LABCLIA [id number] [address] [place] Albumin SerPl-mCncon 023 Albumin [Mass/Vol] 4.0 g/dL Normal 3.9-4.9 [facility] Comment on above: Order Comment: Speci men Type: BLOOD SPECIMENOrdering Facility: [facility] Address: [address] [place], [place] [address] Performed By: #### 2 4321-2, 1750-10, 2776-04, ####[facility] LABCLIA [id number] [place] [id number] [place] Basic metabolic 2000 panelon 12-08-2022 Anion gap [Moles/Vol] 13 mmol/L Normal 9-18 [facility] Comment on above: Order Comment: Speci men Type: BLOOD SPECIMENOrdering Facility: [facility] Address: [address] [place] [address] Performed By: #### 2 4321-2, 1750-10, 2776-04, ####[facility] LABCLIA [id number] [place] [address] [place] Calcium [Mass/Vol] 10.3 mg/dL High 8.5-10.2 [facility] Comment on above: Order Comment: Speci men Type: BLOOD SPECIMENOrdering Facility: [facility] Address: [address] [place], [place] [address] Performed By: #### 2 4321-2, 1750-10, 2776-04, ####[facility] LABCLIA [id number] [address] [address] [place] Chloride [Moles/Vol] 100 mmol/L Normal 97-105 [facility] Comment on above: Order Comment: Speci men Type: BLOOD SPECIMENOrdering Facility: [facility] Address: [address] [place], [place] [address] Performed By: #### 2 4321-2, 1750-10, 2776-04, ####[facility] LABCLIA [id number] [place] [address] [place] CO2 [Moles/Vol] 19 mmol/L Low 22-30 [facility] Comment on above: Order Comment: Speci men Type: BLOOD SPECIMENOrdering Facility: [facility] Address: [address] [place] [address] Performed By: #### 2 4321-2, 1750-10, 2776-04, ####[facility] LABIA [id number] [place] [address] [place] Creatinine [Mass/Vol] 2.35 mg/dL High 0.73-1.22 [facility] Comment on above: Order Comment: Speci men Type: BLOOD SPECIMENOrdering Facility: [facility] Address: [address] [place] [address] Performed By: #### 2 4321-2, 1750-10, 2776-04, ####[facility] [id number] [place] [address] [place] Creatinine and Glomerular filtration rate.predicted panel (S/P/Bld) 29 mL/min/1.73m??? Low >=60 [facility] Comment on above: Order Comment: Speci men Type: BLOOD SPECIMENOrdering Facility: [facility] Address: [address] [place] [address] Result Comment: Mady mated Glomerular Filtration Rate [...] actual GFR. Performed By: #### 2 4321-2, 1750-7, 2776-04, ####[facility] LABCLIA [id number] [place] [address] [place] Glucose [Mass/Vol] 111 mg/dL High 74-99 [facility] Comment on above: Order Comment: Speci men Type: BLOOD SPECIMENOrdering Facility: [facility] Address: [address] [place] [address] Result Comment: The [place] [employer] (ADA) provides guidance for cutoff [...] Standards of Medical Care in Diabetes 2016, [place] [employer]. Diabetes Care. 2016.39(Suppl 1). Performed By: #### 2 4321-2, 1750-10, 2776-04, ####[facility] LABCLIA [id number] [place] [address] [place] Potassium [Moles/Vol] 4.8 mmol/L Normal 3.7-5.1 [facility] Comment on above: Order Comment: Speci men Type: BLOOD SPECIMENOrdering Facility: [facility] Address: [address] [place], [place] [address] Performed By: #### 2 4321-2, 1750-10, 2776-04, ####[facility] LABCLIA [id number] [place] [address] [place] Sodium [Moles/Vol] 132 mmol/L Low 136-144 [facility] Comment on above: Order Comment: Speci men Type: BLOOD SPECIMENOrdering Facility: [facility] Address: [address] [place], [place] [address] Performed By: #### 2 4321-2, 1750-10, 2776-04, ####[facility] LABCLIA [id number] [place] [address] [place] Urea nitrogen [Mass/Vol] 34 mg/dL High 9-24 [facility] Comment on above: Order Comment: Speci men Type: BLOOD SPECIMENOrdering Facility: [facility] Address: [address] [place] [address] Performed By: #### 2 4321-2, 1751-7, 2776-, ####[facility] LABCLIA [id number] [place] [address] [place] CBC panel Auto (Bld)on 12-08 Erythrocyte distribution width (RBC) [Ratio] 17.0 % High 11.5-15.0 [facility] Comment on above: Order Comment: Speci men Type: BLOOD SPECIMENOrdering Facility: [facility] Address: [address] [place] [address] Performed By: #### 5 8410-2 ####[facility] LABCLIA [id number] [place] [address] [place] Hematocrit (Bld) [Volume fraction] 27.1 % Low 39.0-51.0 [facility] Comment on above: Order Comment: Speci men Type: BLOOD SPECIMENOrdering Facility: [facility] Address: [address] [place] [address] Performed By: #### 5 8410-2 ####[facility] LABCLIA [id number] [place] [address] [place] Hemoglobin (Bld) [Mass/Vol] 8.2 g/dL Low 13.0-17.0 [facility] Comment on above: Order Comment: Speci men Type: BLOOD SPECIMENOrdering Facility: [facility] Address: [address] [place] [address] Performed By: #### 5 8410-2 ####[facility] LABCLIA [id number] [address] [place] MCH (RBC) [Entitic mass] 33.9 pg Normal 26.0-34.0 [facility] Comment on above: Order Comment: Speci men Type: BLOOD SPECIMENOrdering Facility: [facility] Address: [address] [place] [address] Performed By: #### 5 8410-2 ####[facility] [id number] [address] STATES [facility] MCHC (RBC) [Mass/Vol] 30.3 g/dL Low 30.5-36.0 [facility] Comment on above: Order Comment: Speci men Type: BLOOD SPECIMENOrdering Facility: [facility] Address: [address] [place] [address] Performed By: #### 5 8410-2 ####[facility] [id number] [address] [place] MCV (RBC) [Entitic vol] 112.0 fL High 80.0-100.0 [facility] Comment on above: Order Comment: Speci men Type: BLOOD SPECIMENOrdering Facility: [facility] Address: [address] [place] [address] Performed By: #### 5 8410-2 ####[facility] [id number] [place] [address] [place] Nucleated RBC (Bld) [#/Vol] 10*3/uL Normal <0.01 [facility] Comment on above: Order Comment: Speci men Type: BLOOD SPECIMENOrdering Facility: [facility] Address: [address] [place] [address] Performed By: #### 5 8410-2 ####[facility] [id number] [address] [place] Platelet mean volume (Bld) [Entitic vol] 9.2 fL Normal 9.0-12.7 [facility] Comment on above: Order Comment: Speci men Type: BLOOD SPECIMENOrdering Facility: [facility] Address: [address] [place] [address] Performed By: #### 5 8410-2 ####[facility] LABCLIA [id number] [place] [address] [place] Platelets (Bld) [#/Vol] 436 10*3/uL High 150-400 [facility] Comment on above: Order Comment: Speci men Type: BLOOD SPECIMENOrdering Facility: [facility] Address: [address] [place], [place] [address] Performed By: #### 5 8410-2 ####[facility] LABCLIA [id number] [place] [address] [place] RBC (Bld) [#/Vol] 2.42 10*6/uL Low 4.20-6.00 [facility] Comment on above: Order Comment: Speci men Type: BLOOD SPECIMENOrdering Facility: [facility] Address: [address] [place], [place] [address] Performed By: #### 5 8410-2 ####[facility] LABCLIA [id number] [place] [address] [place] WBC (Bld) [#/Vol] 36.26 10*3/uL High 3.70-11.00 [facility] Comment on above: Order Comment: Speci men Type: BLOOD SPECIMENOrdering Facility: [facility] Address: [address] [place], [place] [address] Performed By: #### 5 8410-2 ####[facility] LABCLIA [id number] [address] [place] CONSULT PROGon 12-08-2022 CONSULT PROG HNO ID: [id number] Author: Quintin Haywood MD Service: Infectious Disease [...] December 08, 2022 TIME: 8:58 PM Normal [facility] Magnesium SerPl-mCncon 12-08 Magnesium [Mass/Vol] 1.7 mg/dL Normal 1.7-2.3 [facility] Comment on above: Order Comment: Speci men Type: BLOOD SPECIMENOrdering Facility: [facility] Address: [address] [place] [address] Performed By: #### 2 4321-2, 1751-7, 2777-1, 03479-4 ####[facility] LABCLIA [id number] [address] NUTRITIONon 12-08-2022 NUTRITION HNO ID: [id number] Author: Elysia Murillo DTR Service: Nutrition Therapy Author Type: User Experience Researcher Type: Nutrition Filed: 12/08/2022 12:09 PM Note Text: NUTRITION THERAPY BOILER TUBE BLOWER NOTE SERVICE DATE: 12/08/2022 SERVICE TIME: 925 [...] December 08, 2022 TIME: 12:09 PM Normal [facility] Phosphate SerPl-mCncon 12-08 Phosphate [Mass/Vol] 4.1 mg/dL Normal 2.7-4.8 [facility] Comment on above: Order Comment: Speci men Type: BLOOD SPECIMENOrdering Facility: [facility] Address: [address] [address] Performed By: #### 2 4321-2, 1751-7, 2777-1, 74650-6 ####[facility] LABCLIA [id number] [place] [address] [place] Renal function 2000 panelon 12-08-2022 Albumin [Mass/Vol] 3.7 g/dL Low 3.9-4.9 [facility] Comment on above: Order Comment: Speci men Type: BLOOD SPECIMENOrdering Facility: [facility] Address: [address] [address] Performed By: #### 2 4362-6 ####[facility] LABCLIA [id number] [place] [address] [place] Anion gap [Moles/Vol] 13 mmol/L Normal 9-18 [facility] Comment on above: Order Comment: Speci men Type: BLOOD SPECIMENOrdering Facility: [facility] Address: [address] [address] Performed By: #### 2 4362-6 ####[facility] LABIA [id number] [place] [address] [place] Calcium [Mass/Vol] 10.0 mg/dL Normal 8.5-10.2 [facility] Comment on above: Order Comment: Speci men Type: BLOOD SPECIMENOrdering Facility: [facility] Address: [address] Performed By: #### 2 4362-6 ####[facility] LABCLIA [id number] [place] [address] [place] Chloride [Moles/Vol] 102 mmol/L Normal 97-105 [facility] Comment on above: Order Comment: Speci men Type: BLOOD SPECIMENOrdering Facility: [facility] Address: [address] [place] [address] Performed By: #### 2 4362-6 ####[facility] LABCLIA [id number] [place] [address] [place] CO2 [Moles/Vol] 18 mmol/L Low 22-30 [facility] Comment on above: Order Comment: Speci men Type: BLOOD SPECIMENOrdering Facility: [facility] Address: [address] [place] [address] Performed By: #### 2 4362-6 ####[facility] LABCLIA [id number] [place] [address] [place] Creatinine [Mass/Vol] 2.37 mg/dL High 0.73-1.22 [facility] Comment on above: Order Comment: Speci men Type: BLOOD SPECIMENOrdering Facility: [facility] Address: [address] [place] [address] Performed By: #### 2 4362-6 ####[facility] LABIA [id number] [address] [place] Creatinine and Glomerular filtration rate.predicted panel (S/P/Bld) 29 mL/min/1.73m??? Low >=60 [facility] Comment on above: Order Comment: Speci men Type: BLOOD SPECIMENOrdering Facility: [facility] Address: [address] [place] [address] Result Comment: Mady mated Glomerular Filtration Rate [...] actual GFR. Performed By: #### 2 4362-6 ####[facility] LABCLIA [id number] [address] [address] [place] Glucose [Mass/Vol] 99 mg/dL Normal 74-99 [facility] Comment on above: Order Comment: Speci men Type: BLOOD SPECIMENOrdering Facility: [facility] Address: [address] [id number] Result Comment: The [place] [employer] (ADA) provides guidance for cutoff [...] Standards of Medical Care in Diabetes 2016, [place] [employer]. Diabetes Care. 2016.39(Suppl 1). Performed By: #### 2 4362-6 ####[facility] LABCLIA [id number] [place] [address] [place] Phosphate [Mass/Vol] 4.5 mg/dL Normal 2.7-4.8 [facility] Comment on above: Order Comment: Kaylee christianson Type: BLOOD SPECIMENOrdering Facility: [facility] Address: [address] [place] [address] Performed By: #### 2 4362-6 ####[facility] LABCLIA [id number] [address] [address] [place] Potassium [Moles/Vol] 5.2 mmol/L High 3.7-5.1 [facility] Comment on above: Order Comment: Speci men Type: BLOOD SPECIMENOrdering Facility: [facility] Address: [address] Performed By: #### 2 4362-6 ####[facility] LABCLIA [id number] [place] [address] [place] Sodium [Moles/Vol] 133 mmol/L Low 136-144 [facility] Comment on above: Order Comment: Speci men Type: BLOOD SPECIMENOrdering Facility: [facility] Address: [address] Performed By: #### 2 4362-6 ####[facility] LABCLIA [id number] [address] [place] Urea nitrogen [Mass/Vol] 34 mg/dL High 9-24 [facility] Comment on above: Order Comment: Speci men Type: BLOOD SPECIMENOrdering Facility: [facility] Address: [address] Performed By: #### 2 4362-6 ####[facility] LABCLIA [id number] [address] [facility] TYPE + SCREENon 12-08-2022 ABO B Normal [facility] Comment on above: Order Comment: Speci men Type: BLOOD SPECIMENOrdering Facility: [facility] Address: [address] Performed By: #### T SCR ####[facility]ANKCL[facility] [id number] [address] [place] HISTORICAL AB SCR STATUS Negative Normal [facility] Comment on above: Order Comment: Speci men Type: BLOOD SPECIMENOrdering Facility: [facility] Address: [address] [place] [address] Performed By: #### T SCR ####[facility]ANKCLIA [id number] [address] [place] Rh Nom (Bld) Positive Normal [facility] Comment on above: Order Comment: Speci men Type: BLOOD SPECIMENOrdering Facility: [facility] Address: [address] Performed By: #### T SCR ####[facility]LO[facility] BANKCLIA [id number] [place] [address] [place] [address] [facility] TYPE AND SCREEN EXPIRATION 12/11/2022 23:59 Normal [facility] Comment on above: Order Comment: Speci men Type: BLOOD SPECIMENOrdering Facility: [facility] Address: [address] [address] Performed By: #### T SCR ####[facility] BLOOD BANKIA [id number] [place] [address] [place] Basic metabolic 2000 panelon 12-07-2022 Anion gap [Moles/Vol] 13 mmol/L Normal 9-18 [facility] Comment on above: Order Comment: Speci men Type: BLOOD SPECIMENOrdering Facility: [facility] Address: [address] [place], [place] [address] Performed By: #### 1 9123-9, 95044-6 ####[facility] LABCLIA [id number] [place] [address] [place] Calcium [Mass/Vol] 10.0 mg/dL Normal 8.5-10.2 [facility] Comment on above: Order Comment: Speci men Type: BLOOD SPECIMENOrdering Facility: [facility] Address: [address] [place], [place] [address] Performed By: #### 1 9123-9, 92385-6 ####[facility] LABCLIA [id number] [address] [place] Chloride [Moles/Vol] 104 mmol/L Normal 97-105 [facility] Comment on above: Order Comment: Speci men Type: BLOOD SPECIMENOrdering Facility: [facility] Address: [address] [address] Performed By: #### 1 9123-9, 92694-5 ####[facility] LABIA [id number] [place] [address] [place] CO2 [Moles/Vol] 19 mmol/L Low 22-30 [facility] Comment on above: Order Comment: Speci men Type: BLOOD SPECIMENOrdering Facility: [facility] Address: [address] [place] [address] Performed By: #### 1 9123-9, 55512-7 ####[facility] LABIA [id number] [address] [place] Creatinine [Mass/Vol] 2.14 mg/dL High 0.73-1.22 [facility] Comment on above: Order Comment: Speci men Type: BLOOD SPECIMENOrdering Facility: [facility] Address: [address] [place] [address] Performed By: #### 1 9123-9, 17163-6 ####[facility] LABIA [id number] [address] [facility] Creatinine and Glomerular filtration rate.predicted panel (S/P/Bld) 33 mL/min/1.73m??? Low >=60 [facility] Comment on above: Order Comment: Speci men Type: BLOOD SPECIMENOrdering Facility: [facility] Address: [address] [place] [address] Result Comment: Mady mated Glomerular Filtration Rate [...] actual GFR. Performed By: #### 1 9123-9, 52127-8 ####[facility] LABCLIA [id number] [place] [address] [place] Glucose [Mass/Vol] 96 mg/dL Normal 74-99 [facility] Comment on above: Order Comment: Speci men Type: BLOOD SPECIMENOrdering Facility: [facility] Address: [address] [place] [address] Result Comment: The [place] [employer] (ADA) provides guidance for cutoff [...] Standards of Medical Care in Diabetes 2016, [place] [employer]. Diabetes Care. 2016.39(Suppl 1). Performed By: #### 1 9123-9, 68722-8 ####[facility] LABCLIA [id number] [place] [address] [place] Potassium [Moles/Vol] 5.3 mmol/L High 3.7-5.1 [facility] Comment on above: Order Comment: Speci men Type: BLOOD SPECIMENOrdering Facility: [facility] Address: [address] [place] [address] Performed By: #### 1 9123-9, 05039-6 ####[facility] LABCLIA [id number] [place] [address] [place] Sodium [Moles/Vol] 136 mmol/L Normal 136-144 [facility] Comment on above: Order Comment: Speci men Type: BLOOD SPECIMENOrdering Facility: [facility] Address: [address] [place] [address] Performed By: #### 1 9123-9, 94582-7 ####[facility] LABCLIA [id number] [place] [address] [place] Urea nitrogen [Mass/Vol] 31 mg/dL High 9-24 [facility] Comment on above: Order Comment: Speci men Type: BLOOD SPECIMENOrdering Facility: [facility] Address: [address] [place] [address] Performed By: #### 1 9123-9, 61639-9 ####[facility] LABCLIA [id number] [place] [address] [place] CBC panel Auto (Bld)on 12-07 Erythrocyte distribution width (RBC) [Ratio] 17.1 % High 11.5-15.0 [facility] Comment on above: Order Comment: Speci men Type: BLOOD SPECIMENOrdering Facility: [facility] Address: [address] [place] [address] Performed By: #### 5 8410-2 ####[facility] LABCLIA [id number] [place] [address] [place] Hematocrit (Bld) [Volume fraction] 27.3 % Low 39.0-51.0 [facility] Comment on above: Order Comment: Speci men Type: BLOOD SPECIMENOrdering Facility: [facility] Address: [address] [place] [address] Performed By: #### 5 8410-2 ####[facility] LABCLIA [id number] [place] [address] [place] Hemoglobin (Bld) [Mass/Vol] 8.3 g/dL Low 13.0-17.0 [facility] Comment on above: Order Comment: Speci men Type: BLOOD SPECIMENOrdering Facility: [facility] Address: [address] [place] [address] Performed By: #### 5 8410-2 ####[facility] LABCLIA [id number] [place] [address] [place] MCH (RBC) [Entitic mass] 34.4 pg High 26.0-34.0 [facility] Comment on above: Order Comment: Speci men Type: BLOOD SPECIMENOrdering Facility: [facility] Address: [address] [place] [address] Performed By: #### 5 8410-2 ####[facility] LABIA [id number] [place] [address] [place] MCHC (RBC) [Mass/Vol] 30.4 g/dL Low 30.5-36.0 [facility] Comment on above: Order Comment: Speci men Type: BLOOD SPECIMENOrdering Facility: [facility] Address: [address] [place] [address] Performed By: #### 5 8410-2 ####[facility] [id number] [place] [address] [place] MCV (RBC) [Entitic vol] 113.3 fL High 80.0-100.0 [facility] Comment on above: Order Comment: Speci men Type: BLOOD SPECIMENOrdering Facility: [facility] Address: [address] [place], [place] [address] Performed By: #### 5 8410-2 ####[facility] LABIA [id number] [place] [address] [place] Nucleated RBC (Bld) [#/Vol] 10*3/uL Normal <0.01 [facility] Comment on above: Order Comment: Speci men Type: BLOOD SPECIMENOrdering Facility: [facility] Address: [address] [place], [place] [address] Performed By: #### 5 8410-2 ####[facility] LABIA [id number] [place] [address] [place] Platelet mean volume (Bld) [Entitic vol] 9.2 fL Normal 9.0-12.7 [facility] Comment on above: Order Comment: Speci men Type: BLOOD SPECIMENOrdering Facility: [facility] Address: [address] [address] Performed By: #### 5 8410-2 ####[facility] LABCLIA [id number] [place] [address] [place] Platelets (Bld) [#/Vol] 429 10*3/uL High 150-400 [facility] Comment on above: Order Comment: Speci men Type: BLOOD SPECIMENOrdering Facility: [facility] Address: [address] [place] [address] Performed By: #### 5 8410-2 ####[facility] LABIA [id number] [address] RBC (Bld) [#/Vol] 2.41 10*6/uL Low 4.20-6.00 [facility] Comment on above: Order Comment: Speci men Type: BLOOD SPECIMENOrdering Facility: [facility] Address: [address] [place] [address] Performed By: #### 5 8410-2 ####[facility] LABIA [id number] [place] [address] [place] [facility] [place] WBC (Bld) [#/Vol] 34.46 10*3/uL High 3.70-11.00 [facility] Comment on above: Order Comment: Speci men Type: BLOOD SPECIMENOrdering Facility: [facility] Address: [address] [place] [address] Performed By: #### 5 8410-2 ####[facility] [id number] [address] [facility] CONSULT PROGon 12-07-2022 CONSULT PROG HNO ID: [id number] Author: Quintin Haywood MD Service: Infectious Disease [...] December 07, 2022 TIME: 9:05 PM Normal [facility] HISTOPLASMA AG URINEon 12-07 H. capsulatum Ag (U) [Mass/Vol] <0.2 Normal <0.2 [facility] Comment on above: Order Comment: Speci men Type: URINE SPECIMENOrdering Facility: [facility] Address: [address] [place] [address] Performed By: #### U HISTO ####[facility] LABCLIA [id number] [address] [place] H. capsulatum Ag IA Ql (U) Negative Normal Negative [facility] [place] Comment on above: Order Comment: Speci men Type: URINE SPECIMENOrdering Facility: [facility] Address: [address] [place] [address] Result Comment: Hist oplasma galactomannan antigen, urine test is used as an aid in diagnosing histoplasmosis. A negative result cannot rule out infection. Low positive results may at times be due to cross-reactivity with Blastomyces, Talaromyces marneffei, Paracoccidioides, and some Barbara species. Clinical radiological, and epidemiological correlation is required. Performed By: #### U HISTO ####[facility] LABCLIA [id number] [place] [address] [place] Magnesium SerPl-mCncon 12-07 Magnesium [Mass/Vol] 1.6 mg/dL Low 1.7-2.3 [facility] Comment on above: Order Comment: Speci men Type: BLOOD SPECIMENOrdering Facility: [facility] Address: [address] [place] [address] Performed By: #### 1 9123-9, 35037-6 ####[facility] LABCLIA [id number] [place] [address] [place] Culture Sputum w/ Gram Stain on 11-06-2022 Culture Sputum w/ Gram Stain Direct Exam: >25 WBC's per low power field >25 Epithelial Cells per low power field Gram stain indicates excessive oral contamination. Culture will not be interpreted. Please re-order and re-submit if clinically indicated. Susceptibility Data: [facility] Comment on above: Order Comment: TODD santiago erformed at additional charge when indicated Performed By: #### C XSPUT #### [facility] [address] [place] [address] CBC W Auto Differential pane l (Bld)on 10-16-2022 Anisocytosis Ql (Bld) Present [facility] Basophils (Bld) [#/Vol] 0.00 10*3/uL <0.11 k/uL [facility] Basophils/100 WBC (Bld) 0.0 % [facility] Differential cell count method Nom (Bld) Manual [facility] Eosinophils (Bld) [#/Vol] 0.00 10*3/uL <0.46 k/uL [facility] Eosinophils/100 WBC (Bld) 0.0 % [facility] Erythrocyte distribution width (RBC) [Ratio] 19.9 % High 11.5 - 15.0 % [facility] Hematocrit (Bld) [Volume fraction] 34.7 % Low 39.0 - 51.0 % [facility] Hemoglobin (Bld) [Mass/Vol] 10.2 g/dL Low 13.0 - 17.0 g/dL [facility] Lymphocytes (Bld) [#/Vol] 28.70 10*3/uL High 1.00 - 4.00 k/uL [facility] Lymphocytes/100 WBC (Bld) 76.0 % [facility] Lymphocytes/100 WBC (Bld) 6.0 % [facility] MCH (RBC) [Entitic mass] 31.4 pg 26.0 - 34.0 pg [facility] MCHC (RBC) [Mass/Vol] 29.4 g/dL Low 30.5 - 36.0 g/dL [facility] MCV (RBC) [Entitic vol] 106.8 fL High 80.0 - 100.0 fL [facility] Monocytes (Bld) [#/Vol] 0.38 10*3/uL <0.87 k/uL [facility] Monocytes/100 WBC (Bld) 1.0 % [facility] Neutrophils (Bld) [#/Vol] 6.42 10*3/uL 1.45 - 7.50 k/uL [facility] Neutrophils/100 WBC (Bld) 17.0 % [facility] Nucleated RBC (Bld) [#/Vol] <0.01 k/uL [facility] Nucleated RBC/100 WBC (Bld) [Ratio] 0.0 /100 WBC [facility] Ovalocytes LM Ql (Bld) Few [facility] Platelet mean volume (Bld) [Entitic vol] 9.7 fL 9.0 - 12.7 fL [facility] Platelets (Bld) [#/Vol] 615 10*3/uL High 150 - 400 k/uL [facility] Platelets Estimate (Bld) [#/Vol] Increased [facility] RBC (Bld) [#/Vol] 3.25 10*6/uL Low 4.20 - 6.0 0 m/uL [facility] Red Cell Morph Reviewed: see result s of individual morphologies [facility] WBC (Bld) [#/Vol] 37.76 10*3/uL High 3.70 - 11.00 k/uL [facility] TYPE + SCREENon 10-16-2022 ABO B [facility] HIstorical Ab Scr Status Negative [facility] Rh Nom (Bld) Positive [facility] Type and Screen Expiration 10/19/2022 23:59 [facility] COLONOSCOPY DIAGNOSTICon [facility] ENTEROSCOPYon 10-09-[address] [facility] [address] CHEST W IVCONon 3 Radiology Result ACTIONABLE Abnormal [facility] US DVT LOWER LTon 07-04-2022 [facility] Influenza virus A and B RNA and SARS-CoV-2 (COVID-19) N gene panel MYA+probe (Resp)on 04-17-2022 [facility] RNA MYA+probe Ql (Unsp spec) Negative Negative for Influenza A by RT-PCR [facility] FLUBV RNA MYA+probe Ql (Unsp spec) Negative Negative for Influenza B by RT-PCR [facility] SARS-CoV-2 (COVID-19) RNA MYA+probe Ql (Resp) SARS-CoV-2 (Agent of COVID-19) Not Detected by RT-PCR or equivalent method. Not Detected [facility] No Panel Informationon 04-17 [facility] Surgical Pathology Depar tmenton 01-20-2022 [facility] Surgical Pathology Department Name ADINA DAVID Pathologist: AALIYAH MONSALVE MD Date of Procedure: 01/20/2022 Date Received: 01/21/2022 Date Reported 01/30/2022 Submitting Physician: JAKOB BLOCK Location: [facility] Other External # [id number] FINAL DIAGNOSIS A. HERNIA SAC: -- FIBROADIPOSE TISSUE CONSISTENT WITH HERNIA SAC. Electronically Signed Out By AALIYAH MONSALVE MD/CALOS By the signature on this report, the individual or group listed as making the Final Interpretation/Diagnosis certifies that they have reviewed this case. Diagnostic interpretation performed at [place] [address] Clinical History: Incarcerated inguinal hernia Specimens Submitted As: A: HERNIA SAC Other Case Numbers [id number] Gross Description: Received in formalin, labeled with the patient's name and hospital number and hernia sac, is a membraneous segment of tissue measuring 1.0 x 6.5 x 2.0 cm. Areas of induration, nodularity, hemorrhage, necrosis are not seen. Food Chemist sections are submitted in one cassette. WILLIAM hart/01/23/2022 [facility] Department of Pathology [address] [place] [address] Normal [facility] Comment on above: Performed By: #### U [facility] #### [facility] Surgical Pathology Department [id number] [facility] [address] XR CHEST 2V FRONTAL/LATon XR CHEST 2V [...] thoracic spine. IMPRESSION: No acute radiographic abnormality. Studio Operation Engineer: PSCB Transcribe Date/Time: Mar 30 2020 2:14P Dictated by : EULALIO ADAMS MD This examination was interpreted and the report reviewed and electronically signed by: EULALIO ADAMS MD on Mar 30 2020 2:15PM EST Normal [facility] No Panel Information [facility] Vital Signs Date Time Vital Sign Value Performing Clinician Facility 11-22-2024 13:54-0400 Body temperature 98.01 [degF] Shelli Hernandez MD Work Phone: [facility] 11-22-2024 13:54-0400 Diastolic blood pressure 71 mm[Hg] Shelli Hernandez MD Work Phone: [facility] 11-22-2024 13:54-0400 Heart rate 92 /min Shelli Hernandez MD Work Phone: [facility] 11-22-2024 13:54-0400 Respiratory rate 17 /min Shelli Hernandez MD Work Phone: [facility] 11-22-2024 13:54-0400 SaO2% (BldA) [Mass fraction] 96 % Shelli Hernandez MD Work Phone: [facility] 11-22-2024 13:54-0400 Systolic blood pressure 116 mm[Hg] Shelli Hernandez MD Work Phone: [facility] 11-20-2024 01:00-0400 Body height 175.3 cm Shelli Hernandez MD Work Phone: [facility] 11-20-2024 01:00-0400 Body mass index (BMI) [Ratio] 26.23 kg/m2 Shelli Hernandez MD Work Phone: [facility] 11-20-2024 01:00-0400 Body weight 80.56 kg Shelli Hernandez MD Work Phone: [facility] 05-26-2024 10:11-0500 Heart rate 100 /min REJI STEEN MD [address] [place] [address] 05-26-2024 07:58-0500 Heart rate 95 /min REJI STEEN MD [address] 05-26-2024 07:58-0500 Respiratory rate 16 /min REJI STEEN MD [address] [place] [address] 05-26-2024 07:56-0500 Blood Pressure Cuff Size REJI STEEN MD [address] [place] [address] 05-26-2024 07:56-0500 Blood Pressure Location REJI STEEN MD [address] [place] [address] 05-26-2024 07:56-0500 Blood Pressure Method REJI STEEN MD [address] [place] [address] 05-26-2024 07:56-0500 Body temperature 97.88 [degF] REJI STEEN MD [address] [place] [address] 05-26-2024 07:56-0500 Diastolic Blood Pressure Non-Invasive 83 mm[Hg] REJI STEEN MD [address] [place] [address] 05-26-2024 07:56-0500 Heart rate 81 /min REJI STEEN MD [address] [place] [address] 05-26-2024 07:56-0500 Reason For Taking VItal Signs REJI STEEN MD [address] [place] [address] 05-26-2024 07:56-0500 Respiratory rate 16 /min REJI STEEN MD [address] 05-26-2024 07:56-0500 Systolic Blood Pressure Non-Invasive 158 mm[Hg] REJI STEEN MD [address] [place] [address] 05-25-2024 21:58-0500 Blood Pressure Cuff Size REJI STEEN MD [address] [place] [address] 05-25-2024 21:58-0500 Blood Pressure Location REJI STEEN MD [address] [place] [address] 05-25-2024 21:58-0500 Blood Pressure Method REJI STEEN MD [address] [place] [address] 05-25-2024 21:58-0500 Body temperature 97.88 [degF] REJI STEEN MD [address] [place] [address] 05-25-2024 21:58-0500 Diastolic Blood Pressure Non-Invasive 76 mm[Hg] REJI STEEN MD [address] [place] [address] 05-25-2024 21:58-0500 Heart rate 99 /min REJI STEEN MD [address] [place] [address] 05-25-2024 21:58-0500 Respiratory rate 16 /min REJI STEEN MD [address] [place] [address] 05-25-2024 21:58-0500 Systolic Blood Pressure Non-Invasive 135 mm[Hg] REJI STEEN MD [address] [place] [address] 05-25-2024 15:07-0500 Body temperature 97.88 [degF] REJI STEEN MD [facility] 05-25-2024 15:07-0500 Diastolic Blood Pressure Non-Invasive 74 mm[Hg] REJI STEEN MD [facility] 05-25-2024 15:07-0500 Reason For Taking VItal Signs REJI STEEN MD [address] [place] [address] 05-25-2024 15:07-0500 Signs/Symptoms Transfusion Reaction REJI STEEN MD [address] [place] [address] 05-25-2024 15:07-0500 Systolic Blood Pressure Non-Invasive 112 mm[Hg] REJI STEEN MD [address] [place] [address] 05-25-2024 14:32-0500 Heart rate 106 /min REJI STEEN MD [address] [place] [address] 05-25-2024 14:32-0500 Reason For Taking VItal Signs REJI STEEN MD [address] [place] [address] 05-25-2024 14:07-0500 Diastolic blood pressure 75 mm[Hg] REJI STEEN MD [address] [place] [address] 05-25-2024 14:07-0500 Signs/Symptoms Transfusion Reaction REJI STEEN MD [address] [place] [address] 05-25-2024 14:07-0500 Systolic blood pressure 118 mm[Hg] REJI STEEN MD [address] [place] [address] 05-25-2024 14:01-0500 Signs/Symptoms Transfusion Reaction No REJI STEEN MD [address] [place] [address] 05-25-2024 10:19-0500 Heart rate 90 /min REJI STEEN MD [address] [place] [address] 05-25-2024 10:10-0500 Heart rate 92 /min REJI STEEN MD [address] [place] [address] 05-25-2024 07:52-0500 Blood Pressure Cuff Size REJI STEEN MD [address] [place] [address] 05-25-2024 07:52-0500 Blood Pressure Location REJI STEEN MD [address] [place] [address] 05-25-2024 07:52-0500 Blood Pressure Method REJI STEEN MD [address] [place] [address] 05-25-2024 07:52-0500 Body temperature 98.78 [degF] REJI STEEN MD [address] [place] [address] 05-24-2024 16:21-0500 Body temperature 97.7 [degF] REJI STEEN MD [address] [place] [address] 05-24-2024 16:21-0500 Heart rate 80 /min REJI STEEN MD [address] [place] [address] 05-24-2024 15:45-0500 Body temperature 97.88 [degF] REJI STEEN MD [address] [place] [address] 05-24-2024 15:45-0500 Heart rate 82 /min REJI STEEN MD [address] [place] [address] 05-24-2024 15:45-0500 Mean blood pressure 82 mm[Hg] REJI STEEN MD [address] [place] [address] 05-24-2024 15:15-0500 Mean blood pressure 83 mm[Hg] REJI STEEN MD [address] [place] [address] 05-24-2024 15:04-0500 Mean blood pressure 82 mm[Hg] REJI STEEN MD [address] [place] [address] 05-24-2024 14:17-0500 Body temperature 97.88 [degF] REJI STEEN MD [address] 05-24-2024 14:15-0500 Respiratory Rate - Anes 0 br/min REJI STEEN MD [address] [place] [address] 05-24-2024 14:10-0500 Respiratory Rate - Anes 21 br/min REJI STEEN MD [address] [place] [address] 05-24-2024 14:05-0500 Respiratory Rate - Anes 22 br/min REJI STEEN MD [address] [place] [address] 05-24-2024 13:10-0500 Body temperature 97.7 [degF] REJI STEEN MD [address] [place] [address] 05-23-2024 15:38-0500 Body height 175.3 cm REJI STEEN MD [address] [place] [address] 05-23-2024 15:38-0500 Body weight 81.8 kg REJI STEEN MD [address] [place] [address] 05-23-2024 15:38-0500 Body weight 26.62 kg/m2 REJI STEEN MD [address] [place] [address] 05-23-2024 09:50-0500 Body weight 81.8 kg REJI STEEN MD [address] [place] [address] 05-03-2024 11:08-0500 Heart rate 88 /min THERESA KENNEDY DO [address] [place] [address] 05-03-2024 11:08-0500 Respiratory rate 20 /min THERESA KENNEDY DO [address] [place] [address] 05-03-2024 08:00-0500 Heart rate 101 /min THERESA KENNEDY DO [address] [place] [address] 05-03-2024 06:33-0500 Heart rate 85 /min THERESA KENNEDY DO [address] [place] [address] 05-03-2024 06:33-0500 Respiratory rate 18 /min THERESA KENNEDY DO [address] [place] [address] 05-03-2024 04:30-0500 Reason For Taking VItal Signs THERESA KENNEDY DO [facility] 05-03-2024 03:17-0500 Blood Pressure Cuff Size THERESA KENNEDY DO [facility] 05-03-2024 03:17-0500 Blood Pressure Location THERESA KENNEDY DO [facility] 05-03-2024 03:17-0500 Blood Pressure Method THERESA KENNEDY DO [address] [place] [address] 05-03-2024 03:17-0500 Body temperature 97.88 [degF] THERESA KENNEDY DO [address] [place] [address] 05-03-2024 03:17-0500 Diastolic Blood Pressure Non-Invasive 60 mm[Hg] THERESA KENNEDY DO [address] [place] [address] 05-03-2024 03:17-0500 Respiratory rate 18 /min THERESA KENNEDY DO [address] [place] [address] 05-03-2024 03:17-0500 Systolic Blood Pressure Non-Invasive 103 mm[Hg] THERESA KENNEDY DO [address] [place] [address] 05-02-2024 23:27-0500 Body temperature 98.42 [degF] THERESA KENNEDY DO [facility] 05-02-2024 23:27-0500 Diastolic Blood Pressure Non-Invasive 55 mm[Hg] THERESA KENNEDY DO [address] [place] [address] 05-02-2024 23:27-0500 Heart rate 86 /min THERESA KENNEDY DO [address] [place] [address] 05-02-2024 23:27-0500 Systolic Blood Pressure Non-Invasive 110 mm[Hg] THERESA KENNEDY DO [facility] 05-02-2024 19:51-0500 Diastolic Blood Pressure Non-Invasive 65 mm[Hg] THERESA KENNEDY DO [address] [place] [address] 05-02-2024 19:51-0500 Systolic Blood Pressure Non-Invasive 127 mm[Hg] THERESA KENNEDY DO [facility] 05-02-2024 19:45-0500 Body temperature 98.24 [degF] THERESA KENNEDY DO [facility] 05-02-2024 11:50-0500 Blood Pressure Cuff Size THERESA KENNEDY DO [facility] 05-02-2024 11:50-0500 Blood Pressure Location THERESA KENNEDY DO [facility] 05-02-2024 11:50-0500 Blood Pressure Method THERESA KENNEDY DO [address] [place] [address] 05-02-2024 08:06-0500 Heart rate 91 /min THERESA KENNEDY DO [address] [place] [address] 05-02-2024 07:54-0500 Blood Pressure Cuff Size THERESA KENNEDY DO [address] [place] [address] 05-02-2024 07:54-0500 Blood Pressure Location THERESA KENNEDY DO [facility] 05-02-2024 07:54-0500 Blood Pressure Method THERESA KENNEDY DO [facility] 05-02-2024 03:10-0500 Heart rate 95 /min THERESA KENNEDY DO [facility] 05-02-2024 00:37-0500 Body height 177.8 cm THERESA KENNEDY DO [facility] 05-02-2024 00:37-0500 Body weight 85.9 kg THERESA MARIA D SIERRA [facility] 05-02-2024 00:37-0500 Body weight 27.17 kg/m2 THERESA MARIA D SIERRA [facility] 05-01-2024 23:00-0500 Diastolic Blood Pressure Non-Invasive 67 mm[Hg] DIMITRY JIMENES MD [facility] 05-01-2024 23:00-0500 Heart rate 100 /min DIMITRY JIMENES MD [facility] 05-01-2024 23:00-0500 Systolic Blood Pressure Non-Invasive 109 mm[Hg] DIMITRY JIMENES MD [facility] 05-01-2024 22:21-0500 Diastolic Blood Pressure Non-Invasive 66 mm[Hg] DIMITRY JIMENES MD [facility] 05-01-2024 22:21-0500 Heart rate 103 /min DIMITRY JIMENES MD [facility] 05-01-2024 22:21-0500 Respiratory rate 16 /min DIMITRY JIMENES MD [facility] 05-01-2024 22:21-0500 Systolic Blood Pressure Non-Invasive 118 mm[Hg] DIMITRY JIMENES MD [facility] 05-01-2024 21:14-0500 Diastolic Blood Pressure Non-Invasive 71 mm[Hg] DIMITRY JIMENES MD [facility] 05-01-2024 21:14-0500 Heart rate 104 /min DIMITRY JIMENES MD [facility] 05-01-2024 21:14-0500 Respiratory rate 20 /min DIMITRY JIMENES MD [facility] 05-01-2024 21:14-0500 Systolic Blood Pressure Non-Invasive 104 mm[Hg] DIMITRY JIMENES MD [facility] 05-01-2024 15:46-0500 Mean blood pressure 58 mm[Hg] DIMITRY JIMENES MD [facility] 05-01-2024 15:21-0500 Mean blood pressure 80 mm[Hg] DIMITRY JIMENES MD [facility] 05-01-2024 15:21-0500 Reason For Taking VItal Signs DIMITRY JIMENES MD [facility] 05-01-2024 15:00-0500 Mean blood pressure 67 mm[Hg] DIMITRY JIMENES MD [facility] 05-01-2024 14:46-0500 Reason For Taking VItal Signs DIMITRY JIMENES MD [facility] 05-01-2024 13:38-0500 Blood Pressure Location DIMITRY JIMENES MD [facility] 05-01-2024 13:38-0500 Body temperature 98.6 [degF] DIMITRY JIMENES MD [facility] 01-01-2024 10:00-0400 Heart rate 108 /min Heaven Shelley SPRAYER HAND Work Phone: [facility] 01-01-2024 10:00-0400 SaO2% (BldA) [Mass fraction] 98 % Heaven Shelley SPRAYER HAND Work Phone: [facility] 12-24-2023 12:00-0400 Diastolic blood pressure 91 mm[Hg] Андрей Mon PT Work Phone: [facility] 12-24-2023 12:00-0400 Systolic blood pressure 140 mm[Hg] Андрей Mon PT Work Phone: [facility] 10-17-2023 12:52-0400 Body temperature 97.81 [degF] Deysi Diop SURGICAL SCRUB TECHNOLOGIST - CYLINDER TESTER Work Phone: [facility] 10-17-2023 12:52-0400 Diastolic blood pressure 86 mm[Hg] Deysi Diop SURGICAL SCRUB TECHNOLOGIST - CYLINDER TESTER Work Phone: [facility] 10-17-2023 12:52-0400 Heart rate 89 /min Deysi Diop SURGICAL SCRUB TECHNOLOGIST - CYLINDER TESTER Work Phone: [facility] 10-17-2023 12:52-0400 SaO2% (BldA) [Mass fraction] 96 % Deysi Diop SURGICAL SCRUB TECHNOLOGIST - CYLINDER TESTER Work Phone: [facility] 10-17-2023 12:52-0400 Systolic blood pressure 124 mm[Hg] Deysi Diop SURGICAL SCRUB TECHNOLOGIST - CYLINDER TESTER Work Phone: [facility] 05-05-2023 23:50-0500 Body temperature 98.24 [degF] DR HAFSA JOHNSON MD [facility] 05-05-2023 23:50-0500 Diastolic blood pressure 80 mm[Hg] DR HAFSA JOHNSON MD [facility] 05-05-2023 23:50-0500 Heart rate 94 /min DR HAFSA JOHNSON MD [facility] 05-05-2023 23:50-0500 Respiratory rate 18 /min DR HAFSA JOHNSON MD [facility] 05-05-2023 23:50-0500 Systolic blood pressure 167 mm[Hg] DR HAFSA JOHNSON MD [facility] 05-05-2023 21:02-0500 Body height 177.[address] HAFSA JOHNSON MD [facility] 05-05-2023 21:02-0500 Body temperature 98.42 [degF] DR HAFSA JOHNSON MD [facility] 05-05-2023 21:02-0500 Body weight 90.[address] HAFSA JOHNSON MD [facility] 05-05-2023 21:02-0500 Diastolic Blood Pressure Non-Invasive 102 mm[Hg] DR HAFSA JOHNSON MD [facility] 05-05-2023 21:02-0500 Heart rate 99 /min DR HAFSA JOHNSON MD [facility] 05-05-2023 21:02-0500 Respiratory rate 18 /min DR HAFSA JOHNSON MD [facility] 05-05-2023 21:02-0500 Systolic Blood Pressure Non-Invasive 164 mm[Hg] DR HAFSA JOHNSON MD [facility] 02-20-2023 14:13-0500 Body height 177.8 cm Melinda Bradshaw MD Work Phone: [facility] 02-20-2023 14:13-0500 Body mass index (BMI) [Ratio] 26.83 kg/m2 Melinda Bradshaw MD Work Phone: [facility] 02-20-2023 14:13-0500 Body weight 84.82 kg Melinda Bradshaw MD Work Phone: [facility] 02-20-2023 14:13-0500 Diastolic blood pressure 88 mm[Hg] Melinda Bradshaw MD Work Phone: [facility] 02-20-2023 14:13-0500 Heart rate 69 /min Melinda Bradshaw MD Work Phone: [facility] 02-20-2023 14:13-0500 Systolic blood pressure 163 mm[Hg] Melinda Bradshaw MD Work Phone: [facility] 12-18-2022 15:50-0400 Body height 177.8 cm Halle Dale MD Work Phone: [facility] 12-18-2022 15:50-0400 Body temperature 98.1 [degF] Halle Dale MD Work Phone: [facility] 12-18-2022 15:50-0400 Body weight 81.6 kg Halle Dale MD Work Phone: [facility] 12-18-2022 15:50-0400 Diastolic blood pressure 64 mm[Hg] Halle Dale MD Work Phone: [facility] 12-18-2022 15:50-0400 Heart rate 118 /min Halle Dale MD Work Phone: [facility] 12-18-2022 15:50-0400 Respiratory rate 18 /min Halle Dale MD Work Phone: [facility] 12-18-2022 15:50-0400 SaO2% (BldA) [Mass fraction] 98 % Halle Dale MD Work Phone: [facility] 12-18-2022 15:50-0400 Systolic blood pressure 133 mm[Hg] Halle Dale MD Work Phone: [facility] 12-13-2022 10:39-0400 Body height 177.8 cm Nakul Gallegos MD Work Phone: [facility] 12-13-2022 10:39-0400 Body temperature 96.69 [degF] Nakul Gallegos MD Work Phone: [facility] 12-13-2022 10:39-0400 Diastolic blood pressure 76 mm[Hg] Nakul Gallegos MD Work Phone: [facility] 12-13-2022 10:39-0400 Heart rate 107 /min Nakul Gallegos MD Work Phone: [facility] 12-13-2022 10:39-0400 Respiratory rate 16 /min Nakul Gallegos MD Work Phone: [facility] 12-13-2022 10:39-0400 SaO2% (BldA) [Mass fraction] 88 % Nakul Gallegos MD Work Phone: [facility] 12-13-2022 10:39-0400 Systolic blood pressure 134 mm[Hg] Nakul Gallegos MD Work Phone: [facility] 11-26-2022 10:14-0400 Body height 177.8 cm Leslie Sarai SURGICAL SCRUB TECHNOLOGIST.CYLINDER TESTER Work Phone: [facility] 11-26-2022 10:14-0400 Body temperature 97.3 [degF] Leslie Sarai SURGICAL SCRUB TECHNOLOGIST.CYLINDER TESTER Work Phone: [facility] 11-26-2022 10:14-0400 Body weight 84.01 kg Leslie Sarai SURGICAL SCRUB TECHNOLOGIST.CYLINDER TESTER Work Phone: [facility] 11-26-2022 10:14-0400 Diastolic blood pressure 71 mm[Hg] Leslie Sarai SURGICAL SCRUB TECHNOLOGIST.CYLINDER TESTER Work Phone: [facility] 11-26-2022 10:14-0400 Heart rate 106 /min Leslie Sarai SURGICAL SCRUB TECHNOLOGIST.CYLINDER TESTER Work Phone: [facility] 11-26-2022 10:14-0400 Respiratory rate 18 /min Leslie Sarai SURGICAL SCRUB TECHNOLOGIST.CYLINDER TESTER Work Phone: [facility] 11-26-2022 10:14-0400 SaO2% (BldA) [Mass fraction] 96 % Leslie Sarai SURGICAL SCRUB TECHNOLOGIST.CYLINDER TESTER Work Phone: [facility] 11-26-2022 10:14-0400 Systolic blood pressure 131 mm[Hg] Leslie Sarai SURGICAL SCRUB TECHNOLOGIST.CYLINDER TESTER Work Phone: [facility] 11-21-2022 08:38-0400 Body height 177.8 cm Ulises Ramos DO Work Phone: [facility] 11-21-2022 08:38-0400 Body temperature 98.2 [degF] Ulises Ramos DO Work Phone: [facility] 11-21-2022 08:38-0400 Body weight 84.37 kg Ulises Richard DO Work Phone: [facility] 11-21-2022 08:38-0400 Diastolic blood pressure 72 mm[Hg] Ulises Richard DO Work Phone: [facility] 11-21-2022 08:38-0400 Heart rate 92 /min Ulises Richard DO Work Phone: [facility] 11-21-2022 08:38-0400 SaO2% (BldA) [Mass fraction] 95 % Ulises Richard DO Work Phone: [facility] 11-21-2022 08:38-0400 Systolic blood pressure 120 mm[Hg] Ulises Richard DO Work Phone: [facility] 11-19-2022 11:24-0400 Body height 177.8 cm Halle Dale MD Work Phone: [facility] 11-19-2022 11:24-0400 Body temperature 97.5 [degF] Halle Dale MD Work Phone: [facility] 11-19-2022 11:24-0400 Body weight 84.46 kg Halle Dale MD Work Phone: [facility] 11-19-2022 11:24-0400 Diastolic blood pressure 72 mm[Hg] Halle Dale MD Work Phone: [facility] 11-19-2022 11:24-0400 Heart rate 108 /min Halle Dale MD Work Phone: [facility] 11-19-2022 11:24-0400 Respiratory rate 18 /min Halle Dale MD Work Phone: [facility] 11-19-2022 11:24-0400 SaO2% (BldA) [Mass fraction] 96 % Halle Dale MD Work Phone: [facility] 11-19-2022 11:24-0400 Systolic blood pressure 144 mm[Hg] Halle Dale MD Work Phone: [facility] 10-17-2022 15:36-0400 Body temperature 98.1 [degF] Ulises Richard DO Work Phone: [facility] 10-17-2022 15:36-0400 Body weight 89.27 kg Ulises Richard DO Work Phone: [facility] 10-17-2022 15:36-0400 Diastolic blood pressure 90 mm[Hg] Ulises Richard DO Work Phone: [facility] 10-17-2022 15:36-0400 Heart rate 85 /min Ulises Richard DO Work Phone: [facility] 10-17-2022 15:36-0400 Respiratory rate 16 /min Ulises Richard DO Work Phone: [facility] 10-17-2022 15:36-0400 SaO2% (BldA) [Mass fraction] 98 % Ulises Richard DO Work Phone: [facility] 10-17-2022 15:36-0400 Systolic blood pressure 140 mm[Hg] Ulises Richard DO Work Phone: [facility] 10-16-2022 11:43-0400 Body height 177.8 cm Halle Dale MD Work Phone: [facility] 10-16-2022 11:43-0400 Body temperature 98.29 [degF] Halle Dale MD Work Phone: [facility] 10-16-2022 11:43-0400 Body weight 88.91 kg Halle Dale MD Work Phone: [facility] 10-16-2022 11:43-0400 Diastolic blood pressure 71 mm[Hg] Halle Dale MD Work Phone: [facility] 10-16-2022 11:43-0400 Heart rate 120 /min Halle Dale MD Work Phone: [facility] 10-16-2022 11:43-0400 Respiratory rate 16 /min Halle Dale MD Work Phone: [facility] 10-16-2022 11:43-0400 SaO2% (BldA) [Mass fraction] 99 % Halle Dale MD Work Phone: [facility] 10-16-2022 11:43-0400 Systolic blood pressure 145 mm[Hg] Halle Dale MD Work Phone: [facility] 10-10-2022 10:19-0400 Body temperature 97.9 [degF] Chair [place] Work Phone: [facility] 10-10-2022 10:19-0400 Diastolic blood pressure 64 mm[Hg] Chair [place] Work Phone: [facility] 10-10-2022 10:19-0400 Heart rate 97 /min Chair [place] Work Phone: [facility] 10-10-2022 10:19-0400 Respiratory rate 18 /min Chair [place] Work Phone: [facility] 10-10-2022 10:19-0400 Systolic blood pressure 159 mm[Hg] Chair [place] Work Phone: [facility] 10-09-2022 19:50-0400 Diastolic blood pressure 100 mm[Hg] Mc Q3r6 Work Phone: [facility] 10-09-2022 19:50-0400 Heart rate 79 /min Mc Q3r6 Work Phone: [facility] 10-09-2022 19:50-0400 Respiratory rate 16 /min Mc Q3r6 Work Phone: [facility] 10-09-2022 19:50-0400 SaO2% (BldA) [Mass fraction] 97 % Mc Q3r6 Work Phone: [facility] 10-09-2022 19:50-0400 Systolic blood pressure 179 mm[Hg] Mc Q3r6 Work Phone: [facility] 10-09-2022 15:43-0400 Body height 177.8 cm Mc Q3r6 Work Phone: [facility] 10-09-2022 15:43-0400 Body temperature 96.8 [degF] Mc Q3r6 Work Phone: [facility] 10-09-2022 15:43-0400 Body weight 90.72 kg Q3r6 Work Phone: [facility] 08-28-2022 15:45-0400 Body temperature 98.1 [degF] Chair [place] Work Phone: [facility] 08-28-2022 15:45-0400 Diastolic blood pressure 82 mm[Hg] Chair [place] Work Phone: [facility] 08-28-2022 15:45-0400 Heart rate 68 /min Chair [place] Work Phone: [facility] 08-28-2022 15:45-0400 Respiratory rate 18 /min Chair [place] Work Phone: [facility] 08-28-2022 15:45-0400 Systolic blood pressure 163 mm[Hg] Chair [place] Work Phone: [facility] 08-20-2022 10:32-0400 Body height 177.8 cm Halle Dale MD Work Phone: [facility] 08-20-2022 10:32-0400 Body temperature 98.2 [degF] Halle Dale MD Work Phone: [facility] 08-20-2022 10:32-0400 Body weight 95.25 kg Halle Dale MD Work Phone: [facility] 08-20-2022 10:32-0400 Diastolic blood pressure 71 mm[Hg] Halle Dale MD Work Phone: [facility] 08-20-2022 10:32-0400 Heart rate 87 /min Halle Dale MD Work Phone: [facility] 08-20-2022 10:32-0400 Respiratory rate 18 /min Halle Dale MD Work Phone: [facility] 08-20-2022 10:32-0400 SaO2% (BldA) [Mass fraction] 98 % Halle Dale MD Work Phone: [facility] 08-20-2022 10:32-0400 Systolic blood pressure 154 mm[Hg] Halle Dale MD Work Phone: [facility] 07-15-2022 10:06-0400 Body height 177.8 cm Sean Mays MD Work Phone: [facility] 07-15-2022 10:06-0400 Body weight 90.72 kg Sean Mays MD Work Phone: [facility] 07-15-2022 10:06-0400 Diastolic blood pressure 74 mm[Hg] Sean Mays MD Work Phone: [facility] 07-15-2022 10:06-0400 Heart rate 118 /min Sean Mays MD Work Phone: [facility] 07-15-2022 10:06-0400 Respiratory rate 18 /min Sean Mays MD Work Phone: [facility] 07-15-2022 10:06-0400 SaO2% (BldA) [Mass fraction] 97 % Sean Mays MD Work Phone: [facility] 07-15-2022 10:06-0400 Systolic blood pressure 148 mm[Hg] Sean Mays MD Work Phone: [facility] 07-11-2022 09:56-0400 Body height 177.8 cm Ulises Ramos DO Work Phone: [facility] 07-11-2022 09:56-0400 Body temperature 97.81 [degF] Ulises Ramos DO Work Phone: [facility] 07-11-2022 09:56-0400 Body weight 92.94 kg Ulises Ramos DO Work Phone: [facility] 07-11-2022 09:56-0400 Diastolic blood pressure 93 mm[Hg] Ulises Ramos DO Work Phone: [facility] 07-11-2022 09:56-0400 Heart rate 89 /min Ulises Ramos DO Work Phone: [facility] 07-11-2022 09:56-0400 SaO2% (BldA) [Mass fraction] 97 % Ulises Richard DO Work Phone: [facility] 07-11-2022 09:56-0400 Systolic blood pressure 163 mm[Hg] Ulises Richard DO Work Phone: [facility] 07-02-2022 09:51-0400 Body temperature 97.5 [degF] Ulises Richard DO Work Phone: [facility] 07-02-2022 09:51-0400 Body weight 92.31 kg Ulises Richard DO Work Phone: [facility] 07-02-2022 09:51-0400 Diastolic blood pressure 90 mm[Hg] Ulises Richard DO Work Phone: [facility] 07-02-2022 09:51-0400 Heart rate 105 /min Ulises Richard DO Work Phone: [facility] 07-02-2022 09:51-0400 SaO2% (BldA) [Mass fraction] 93 % Ulises Richard DO Work Phone: [facility] 07-02-2022 09:51-0400 Systolic blood pressure 144 mm[Hg] Ulises Richard DO Work Phone: [facility] 06-21-2022 10:02-0500 Body temperature 97.9 [degF] Halle Dale MD Work Phone: [facility] 06-21-2022 10:02-0500 Body weight 94.35 kg Halle Dale MD Work Phone: [facility] 06-21-2022 10:02-0500 Diastolic blood pressure 82 mm[Hg] Halle Dale MD Work Phone: [facility] 06-21-2022 10:02-0500 Heart rate 87 /min Halle Dale MD Work Phone: [facility] 06-21-2022 10:02-0500 SaO2% (BldA) [Mass fraction] 96 % Halle Dale MD Work Phone: [facility] 06-21-2022 10:02-0500 Systolic blood pressure 174 mm[Hg] Halle Dale MD Work Phone: [facility] 06-11-2022 16:14-0500 Body height 177.8 cm Buffy Min MD Work Phone: [facility] 06-11-2022 16:14-0500 Body weight 90.72 kg Buffy Min MD Work Phone: [facility] 06-11-2022 16:14-0500 Diastolic blood pressure 97 mm[Hg] Buffy Min MD Work Phone: [facility] 06-11-2022 16:14-0500 Heart rate 92 /min Buffy Min MD Work Phone: [facility] 06-11-2022 16:14-0500 SaO2% (BldA) [Mass fraction] 95 % Buffy Min MD Work Phone: [facility] 06-11-2022 16:14-0500 Systolic blood pressure 187 mm[Hg] Buffy Min MD Work Phone: [facility] 06-05-2022 14:37-0500 Body height 177.8 cm Ulises Richard DO Work Phone: [facility] 06-05-2022 14:37-0500 Body temperature 97.7 [degF] Ulises Richard DO Work Phone: [facility] 06-05-2022 14:37-0500 Body weight 94.08 kg Ulises Richard DO Work Phone: [facility] 06-05-2022 14:37-0500 Diastolic blood pressure 80 mm[Hg] Ulises Richard DO Work Phone: [facility] 06-05-2022 14:37-0500 Heart rate 77 /min Ulises Richard DO Work Phone: [facility] 06-05-2022 14:37-0500 SaO2% (BldA) [Mass fraction] 94 % Ulises Ramos DO Work Phone: [facility] 06-05-2022 14:37-0500 Systolic blood pressure 148 mm[Hg] Ulises Ramos DO Work Phone: [facility] 04-17-2022 11:19-0500 Diastolic blood pressure 78 mm[Hg] Annmarie Ronquillo PA-C Work Phone: [facility] 04-17-2022 11:19-0500 Systolic blood pressure 158 mm[Hg] Annmarie Ronquillo PA-C Work Phone: [facility] 04-17-2022 11:00-0500 Body weight 91.22 kg Annmarie Ronquillo PA-C Work Phone: [facility] 04-17-2022 11:00-0500 Heart rate 78 /min Annmarie Ronquillo PA-C Work Phone: [facility] 04-17-2022 11:00-0500 SaO2% (BldA) [Mass fraction] 97 % Annmarie Ronquillo PA-C Work Phone: [facility] 03-22-2022 09:42-0500 Body height 177.8 cm Halle Dale MD Work Phone: [facility] 03-22-2022 09:42-0500 Body temperature 96.91 [degF] Halle Dale MD Work Phone: [facility] 03-22-2022 09:42-0500 Body weight 91.63 kg Halle Dale MD Work Phone: [facility] 03-22-2022 09:42-0500 Diastolic blood pressure 100 mm[Hg] Halle Dale MD Work Phone: [facility] 03-22-2022 09:42-0500 Heart rate 88 /min Halle Dale MD Work Phone: [facility] 03-22-2022 09:42-0500 Respiratory rate 22 /min Halle Dale MD Work Phone: [facility] 03-22-2022 09:42-0500 SaO2% (BldA) [Mass fraction] 97 % Halle Dale MD Work Phone: [facility] 03-22-2022 09:42-0500 Systolic blood pressure 149 mm[Hg] Halle Dale MD Work Phone: [facility] 03-21-2022 15:07-0500 Diastolic blood pressure 63 mm[Hg] [facility] 03-21-2022 15:07-0500 Heart rate 78 /min [facility] 03-21-2022 15:07-0500 Systolic blood pressure 140 mm[Hg] [facility] 03-21-2022 15:06-0500 Respiratory rate 18 /min [facility] 03-18-2022 15:15-0500 Body temperature 97.3 [degF] [facility] 03-18-2022 15:15-0500 Diastolic blood pressure 80 mm[Hg] [facility] 03-18-2022 15:15-0500 Heart rate 78 /min [facility] 03-18-2022 15:15-0500 Respiratory rate 18 /min [facility] 03-18-2022 15:15-0500 Systolic blood pressure 142 mm[Hg] [facility] 03-13-2022 14:18-0500 Body weight 90.72 kg [facility] 03-13-2022 14:18-0500 Diastolic blood pressure 80 mm[Hg] [facility] 03-13-2022 14:18-0500 Heart rate 72 /min [facility] 03-13-2022 14:18-0500 Respiratory rate 18 /min [facility] 03-13-2022 14:18-0500 SaO2% (BldA) [Mass fraction] 96 % [facility] 03-13-2022 14:18-0500 Systolic blood pressure 163 mm[Hg] [facility] 03-04-2022 14:55-0500 Diastolic blood pressure 58 mm[Hg] [facility] 03-04-2022 14:55-0500 Heart rate 76 /min [facility] 03-04-2022 14:55-0500 Respiratory rate 18 /min [facility] 03-04-2022 14:55-0500 Systolic blood pressure 163 mm[Hg] [facility] 03-04-2022 13:51-0500 Body temperature 97.9 [degF] [facility] 02-26-2022 15:20-0500 Diastolic blood pressure 85 mm[Hg] [facility] 02-26-2022 15:20-0500 Heart rate 76 /min [facility] 02-26-2022 15:20-0500 Respiratory rate 18 /min [facility] 02-26-2022 15:20-0500 Systolic blood pressure 173 mm[Hg] [facility] 02-26-2022 14:11-0500 Body weight 88.95 kg [facility] 01-17-2022 14:58-0400 Body height 177.8 cm Loy Mcallister MD Work Phone: [facility] 01-17-2022 14:58-0400 Heart rate 97 /min Loy Mcallister MD Work Phone: [facility] 01-17-2022 14:58-0400 SaO2% (BldA) [Mass fraction] 98 % Loy Mcallister MD Work Phone: [facility] 12-03-2021 14:05-0400 Body temperature 97.5 [degF] Ulises Ramos DO Work Phone: [facility] 12-03-2021 14:05-0400 Body weight 91.67 kg Ulises Ramos DO Work Phone: [facility] 12-03-2021 14:05-0400 Diastolic blood pressure 78 mm[Hg] Ulises Ramos DO Work Phone: [facility] 12-03-2021 14:05-0400 Heart rate 86 /min Ulises Ramos DO Work Phone: [facility] 12-03-2021 14:05-0400 SaO2% (BldA) [Mass fraction] 97 % Ulises Henryley DO Work Phone: [facility] 12-03-2021 14:05-0400 Systolic blood pressure 136 mm[Hg] Ulises Richard DO Work Phone: [facility] 10-22-2021 14:17-0400 Body temperature 98.6 [degF] Ulises Henryley DO Work Phone: [facility] 10-22-2021 14:17-0400 Body weight 92.49 kg Ulises Henryley DO Work Phone: [facility] 10-22-2021 14:17-0400 Diastolic blood pressure 62 mm[Hg] Ulises Henryley DO Work Phone: [facility] 10-22-2021 14:17-0400 Systolic blood pressure 118 mm[Hg] Ulises Henryley DO Work Phone: [facility] 10-02-2021 13:12-0400 Body height 177.8 cm Melissa Raymond SURGICAL SCRUB TECHNOLOGIST.CYLINDER TESTER Work Phone: [facility] 10-02-2021 13:12-0400 Body weight 91.49 kg Melissa Raymond APRN.CYLINDER TESTER Work Phone: [facility] 10-02-2021 13:12-0400 Diastolic blood pressure 72 mm[Hg] Melissa Raymond APRN.CYLINDER TESTER Work Phone: [facility] 10-02-2021 13:12-0400 Heart rate 83 /min Melissa Raymond APRN.CYLINDER TESTER Work Phone: [facility] 10-02-2021 13:12-0400 Respiratory rate 18 /min Melissa Raymond APRN.CYLINDER TESTER Work Phone: [facility] 10-02-2021 13:12-0400 SaO2% (BldA) [Mass fraction] 97 % Melissa Raymond APRN.CYLINDER TESTER Work Phone: [facility] 10-02-2021 13:12-0400 Systolic blood pressure 116 mm[Hg] Melissa Raymond APRN.CYLINDER TESTER Work Phone: [facility] 09-19-2021 10:59-0400 Body temperature 98.6 [degF] Halle Dale MD Work Phone: [facility] 09-19-2021 10:59-0400 Body weight 93.44 kg Halle Dale MD Work Phone: [facility] 09-19-2021 10:59-0400 Diastolic blood pressure 78 mm[Hg] Halle Dale MD Work Phone: [facility] 09-19-2021 10:59-0400 Heart rate 79 /min Halle Dale MD Work Phone: [facility] 09-19-2021 10:59-0400 SaO2% (BldA) [Mass fraction] 96 % Halle Dale MD Work Phone: [facility] 09-19-2021 10:59-0400 Systolic blood pressure 128 mm[Hg] Halle Dale MD Work Phone: [facility] 09-12-2021 10:47-0400 Body temperature 97.5 [degF] Uilses Ramos DO Work Phone: [facility] 09-12-2021 10:47-0400 Body weight 94.8 kg Ulises Richard DO Work Phone: [facility] 09-12-2021 10:47-0400 Diastolic blood pressure 72 mm[Hg] Ulises Richard DO Work Phone: [facility] 09-12-2021 10:47-0400 Heart rate 87 /min Ulises Richard DO Work Phone: [facility] 09-12-2021 10:47-0400 SaO2% (BldA) [Mass fraction] 98 % Ulises Richard DO Work Phone: [facility] 09-12-2021 10:47-0400 Systolic blood pressure 118 mm[Hg] Ulises Henryley DO Work Phone: [facility] 07-18-2021 13:51-0400 Diastolic blood pressure 90 mm[Hg] Loy Mcallister MD Work Phone: [facility] 07-18-2021 13:51-0400 Heart rate 90 /min Loy Mcallister MD Work Phone: [facility] 07-18-2021 13:51-0400 SaO2% (BldA) [Mass fraction] 95 % Loy Mcallister MD Work Phone: [facility] 07-18-2021 13:51-0400 Systolic blood pressure 140 mm[Hg] Loy Mcallister MD Work Phone: [facility] Encounters Encounter Date Encounter Type Care Provider Facility Start: 12-11-2024 ambulatory Leighton Chi Ernesto Facility:[facility] Start: 11-26-2024 ambulatory Oniel Demiter Facility :[facility] Start: 11-25-2024 ambulatory Leighton Chi Ernesto Facility:[facility] Start: 11-19-2024 End: 11-22-2024 Evaluation and management of inpatient Shelli Hernandez MD Work Phone: [id number] Comment on above: [facility] Start: 11-19-2024 ambulatory Leighton Chi Ernesto Facility:[facility] Start: 11-18-2024 ambulatory Leighton Chi Ernesto [facility] Start: 11-18-2024 End: 11-19-2024 ambulatory Elighton Chi Ernesto Facility:[facility] Start: 11-17-2024 End: 11-17-2024 ambulatory Monisha Edmonds Facility:[facility] Start: 11-15-2024 ambulatory Leighton Chi Ernesto Facility:[facility] Start: 11-04-2024 End: 11-04-2024 ambulatory Ayman Basali Facility:[facility] Start: 11-01-2024 End: 11-01-2024 ambulatory Jocelyne Rodriguez Facility:[facility] Start: 10-27-2024 End: 10-27-2024 ambulatory Oniel Demiter Facility:[facility] Start: 2024 End: 2024 ambulatory Lavinia Pascual Facility:[facility] Start: 10-22-2024 End: 10-22-2024 ambulatory Monisha Edmonds Facility:[facility] Start: 10-18-2024 ambulatory Monisha Edmonds Facility:[facility] Start: 10-13-2024 Encounter for other preprocedural examination Quentin Boyer [facility] Start: 10-13-2024 ambulatory Monisha Edmonds [facility] Start: 10-13-2024 End: 10-13-2024 ambulatory Leighton Chi Ernesto Facility:[facility] Start: 10-07-2024 End: 10-07-2024 ambulatory Leighton Chi Ernesto Facility:[facility] Start: 09-24-2024 ambulatory Ratna Peguero lity:[facility] Start: 09-17-2024 End: 09-17-2024 ambulatory Leighton Chi Ernesto Facility:[facility] Start: 08-27-2024 End: 08-27-2024 ambulatory Jocelyne Benítezck Facility:[facility] Start: 08-05-2024 End: 08-05-2024 ambulatory Leighton Chi Ernesto Facility:[facility] Start: 07-29-2024 End: 07-29-2024 ambulatory Leighton Chi Ernesto Facility:[facility] Start: 07-26-2024 End: 07-26-2024 ambulatory DEYSI SNYDER Facility:[facility] Start: 07-20-2024 End: 07-20-2024 ambulatory Leighton Chi Ernesto Facility:[facility] Start: 07-13-2024 ambulatory Leighton Chi Ernesto Facility:[facility] Start: 06-16-2024 End: 06-16-2024 ambulatory Leighton Chi Ernesto Facility:[facility] Start: 06-14-2024 End: 06-14-2024 ambulatory Jocelyne Skkristick Facility:[facility] Start: 06-03-2024 ambulatory Leighton Chi Ernesto [facility] Start: 06-03-2024 End: 06-03-2024 ambulatory Leighton Chi Ernesto Facility:[facility] Start: 06-02-2024 End: 06-02-2024 ambulatory Leighton Chi Ernesto Facility:[facility] Start: 05-26-2024 ambulatory Leighton Chi Ernesto [facility] Start: 05-26-2024 End: 07-15-2024 Evaluation and management of inpatient Gregg Mcdonnell Facility:[facility] Start: 05-23-2024 End: 05-26-2024 Evaluation and management of inpatient REJI STEEN MD [facility] Start: 05-20-2024 End: 05-20-2024 ambulatory Leighton Chi Ernesto Facility:[facility] Start: 05-20-2024 End: 05-20-2024 ambulatory Vincent Jabour Facility:[facility] Start: 05-19-2024 End: 05-19-2024 ambulatory Leighton Chi Ernesto Facility:[facility] Start: 05-13-2024 End: 05-13-2024 ambulatory Leighton Chi Ernesto Facility:[facility] Start: 05-11-2024 End: 05-11-2024 ambulatory Leighton Chi Ernesto Facility:[facility] Start: 05-07-2024 End: 05-07-2024 ambulatory Leighton Chi Ernesto Facility:[facility] Start: 05-06-2024 End: 05-06-2024 ambulatory Leighton Chi Ernesto Facility:[facility] Start: 05-05-2024 End: 05-05-2024 ambulatory Leighton Chi Ernesto Facility:[facility] Start: 05-02-2024 End: 05-03-2024 Evaluation and management of inpatient THERESA KENNEDY DO [facility] Start: 05-01-2024 End: 05-02-2024 Emergency department patient visit DIMITRY JIMENES MD [facility] Start: 04-27-2024 End: 04-27-2024 ambulatory Leighton Chi Ernesto Facility:[facility] Start: 04-19-2024 ambulatory Leighton Chi Ernesto Facility:[facility] Start: 04-16-2024 End: 04-16-2024 ambulatory Leighton Chi Ernesto Facility:[facility] Start: 04-16-2024 End: 04-16-2024 ambulatory Leighton Chi Ernesto Facility:[facility] Start: 03-26-2024 End: 03-26-2024 ambulatory Leighton Chi Ernesto Facility:[facility] Start: 03-19-2024 ambulatory Leighton Chi Ernesto [facility] Start: 03-17-2024 ambulatory Leighton Chi Ernesto Facility:[facility] Start: 03-17-2024 ambulatory Leighton Chi Ernesto [facility] Start: 03-17-2024 End: 03-20-2024 Evaluation and management of inpatient Leighton Chi Ernesto Facility:[facility] Start: 03-17-2024 End: 03-17-2024 ambulatory Leighton Chi Ernesto Facility:[facility] Start: 02-27-2024 End: 02-27-2024 ambulatory Leighton Chi Ernesto Facility:[facility] Start: 02-25-2024 ambulatory Leighton Chi Ernesto [facility] Start: 02-12-2024 End: 02-12-2024 ambulatory Leighton Chi Ernesto Facility:[facility] Start: 02-10-2024 End: 02-10-2024 ambulatory Leighton Chi Ernesto Facility:[facility] Start: 02-09-2024 End: 02-09-2024 ambulatory Leighton Chi Ernesto Facility:[facility] Start: 02-06-2024 End: 02-22-2024 Evaluation and management of inpatient Leighton Chi Ernesto Facility:[facility] Start: 02-03-2024 ambulatory Quentin River Facility:[facility] Start: 02-03-2024 End: 02-06-2024 Evaluation and management of inpatient Quentin River Facility:[facility] Start: 02-03-2024 ambulatory Quentin River [facility] Start: 01-28-2024 ambulatory Leighton Chi Ernesto Facility:[facility] Start: 01-22-2024 End: 01-22-2024 ambulatory Leighton Chi Ernesto Facility:[facility] Start: 01-17-2024 End: 01-17-2024 ambulatory Jerardo Meeta Facility:[facility] Start: 01-16-2024 End: 01-16-2024 Emergency department patient visit Leighton Chi Ernesto Facility:[facility] Start: 01-12-2024 End: 01-12-2024 Emergency department patient visit Leighton Chi Ernesto Facility:[facility] Start: 01-12-2024 End: 01-12-2024 ambulatory Leighton Chi Ernesto Facility:[facility] Start: 01-12-2024 End: 01-12-2024 ambulatory Leighton Chi Ernesto Facility:[facility] Start: 01-01-2024 End: 01-01-2024 ambulatory Quentin Boyer Facility:[facility] Start: 01-01-2024 End: 01-01-2024 ambulatory Heaven Shelley [employer] Work Phone: [facility] Comment on above: Impaired functional mobility, balance, gait, and endurance (Primary Dx); Acute midline low back pain without sciatica; Physical deconditioning; Muscular deconditioning Start: 12-24-2023 End: 12-25-2023 ambulatory Андрей Mon PT Work Phone: [facility] Comment on above: Impaired functional mobility, balance, gait, and endurance (Primary Dx) Start: 12-17-2023 End: 12-17-2023 ambulatory Leighton Chi Ernesto Facility:[facility] Start: 12-10-2023 End: 12-10-2023 ambulatory Monisha Edmonds Facility:[facility] Start: 12-04-2023 End: 12-05-2023 ambulatory Wilton Palma flag [employer] Manager Management Comment on above: [facility] Start: 11-22-2023 Refill Jocelyne Mccullough APRN.CYLINDER TESTER Work Phone: [facility] Comment on above: Refill Request Start: 11-20-2023 End: 11-20-2023 ambulatory Андрей Mon PT Work Phone: [facility] Comment on above: Impaired functional mobility, balance, gait, and endurance (Primary Dx) Start: 11-12-2023 End: 11-12-2023 ambulatory Hortencia Gallardo MD Work Phone: Gastroenterology Comment on above: Iron deficiency anem ia due to chronic blood loss (Primary Dx) Start: 11-12-2023 End: 11-12-2023 Telemedicine consultation with patient Hortencia Gallardo MD Work Phone: Gastroenterology Start: 10-24-2023 ambulatory Wilton dick flag signalerExpress Manager Management Comment on above: Community Monitoring Outreach Start: 10-17-2023 End: 10-17-2023 Office outpatient new 30 minutes Deysi Diop SURGICAL SCRUB TECHNOLOGIST - CYLINDER TESTER Work Phone: [facility] Comment on above: [...] Start: 09-17-2023 ambulatory Wilton Beltre Staff ord flag signalerExpress Manager Management Comment on above: Community Monitoring Outreach Start: 09-08-2023 Refill Jocelyne Mccullough APRN.CYLINDER TESTER Work Phone: [facility] Comment on above: Refill Request Start: 08-15-2023 End: 08-15-2023 Emergency department patient visit [facility] Start: 08-11-2023 ambulatory Wilton Beltre Staff ord flag signalerExpress Manager Management Comment on above: Community Monitoring Outreach Start: 07-25-2023 Telephone encounter Barrett jackson MD Work Phone: [facility] Cardiology [place] Start: 07-17-2023 Refill Ulises ortega DO Work Phone: [facility] Comment on above: Refill Request Start: 07-17-2023 End: 07-17-2023 ambulatory Андрей Mon PT Work Phone: [facility] Comment on above: Acute midline low ba ck pain without sciatica (Primary Dx) Start: 07-15-2023 End: 07-15-2023 ambulatory Kaleigh Mueller SPRAYER HAND Work Phone: [facility] Comment on above: Physical decondition ing (Primary Dx) Start: 07-11-2023 End: 07-11-2023 ambulatory PANTERA STEINER Facility[facility] Start: 07-03-2023 End: 07-03-2023 ambulatory Pantera Steiner PT Work Phone: [facility] Comment on above: Physical decondition ing (Primary Dx); Acute midline low back pain without sciatica; Impaired functional mobility, balance, gait, and endurance Start: 07-01-2023 End: 07-01-2023 ambulatory Kaleigh Melendezutler SPRAYER HAND Work Phone: [facility] Comment on above: Physical decondition ing (Primary Dx) Start: 06-26-2023 End: 06-26-2023 ambulatory Eileen Medrano SPRAYER HAND Work Phone: [facility] Comment on above: Physical decondition ing (Primary Dx) Start: 06-20-2023 End: 06-20-2023 ambulatory Pantera Steiner PT Work Phone: [facility] Comment on above: Physical decondition ing (Primary Dx); Acute midline low back pain without sciatica Start: 06-09-2023 End: 06-09-2023 ambulatory ULISES RAMOS Facility:[facility] Start: 06-05-2023 End: 06-05-2023 ambulatory Eileen Medrano SPRAYER HAND Work Phone: [facility] Comment on above: Physical decondition ing (Primary Dx) Start: 06-02-2023 End: 06-02-2023 ambulatory Eileen Medrano SPRAYER HAND Work Phone: [facility] Comment on above: Physical decondition ing (Primary Dx) Start: 05-30-2023 End: 05-30-2023 ambulatory Heaven Shelely SPRAYER HAND Work Phone: [facility] Comment on above: Physical decondition ing (Primary Dx); Acute midline low back pain without sciatica; Impaired functional mobility, balance, gait, and endurance Start: 05-28-2023 End: 05-28-2023 ambulatory Kaleigh Mueller SPRAYER HAND Work Phone: [facility] Comment on above: Physical decondition ing (Primary Dx) Start: 05-27-2023 ambulatory Wilton dick flag signalerExpress Manager Management Comment on above: Community Monitoring Outreach Start: 05-16-2023 End: 05-16-2023 ambulatory Pantera Steiner PT Work Phone: [facility] Comment on above: Acute midline low ba ck pain without sciatica (Primary Dx); Physical deconditioning Start: 05-05-2023 End: 05-06-2023 Emergency department patient visit DR HAFSA JOHNSON MD Facility:[facility] Start: 05-05-2023 End: 05-05-2023 Emergency department patient visit DR HAFSA JOHNSON MD [facility] Start: 03-12-2023 ambulatory Wilton dick flag signalerExpress Manager Management Comment on above: Community Monitoring Outreach Start: 02-20-2023 End: 02-20-2023 ambulatory [facility] Ambulatory Start: 02-20-2023 End: 02-20-2023 Office outpatient new 45 minutes Melinda Bradshaw MD Work Phone: [facility] Comment on above: Atrial fibrillation, unspecified type (CMS/HCC) (Primary Dx) Start: 01-21-2023 Telephone encounter Nakul Khalil MD Work Phone: [facility] Comment on above: Appointment (Fyi- lisseth lled patient to schedule his follow up appt. Pt declined and states he is no longer following up with [facility] providers-jj) Start: 01-17-2023 Telephone encounter Ulises Ramos DO Work Phone: Family Medicine [facility] Comment on above: Release Of Medical R ecords ([facility]) Start: 01-15-2023 ambulatory Wilton dick flag signalerExpress Manager Management Comment on above: Community Monitoring Outreach Start: 01-10-2023 Telephone encounter Halle Haro Work Phone: [facility] Start: 01-03-2023 Telephone encounter Halle Haro Work Phone: [facility] Start: 01-01-2023 ambulatory Maddie White RN [facility] Start: 01-01-2023 Follow-up encounter Maddie White RN Express Manager Management Comment on above: Transition Of Care ( TCM follow-up) Start: 12-30-2022 Telephone encounter Jenifer bell LPN Work Phone: [facility] Comment on above: Home Care Start: 12-27-2022 Telephone encounter Iona Jeffries chantelle Work Phone: [facility] Comment on above: Home Care (Confirmat ion Call ) Start: 12-24-2022 Telephone encounter Marley galan RD Work Phone: Hematology/Oncology Comment on above: Nutrition Counseling (Weight Loss) Start: 12-20-2022 Telephone encounter Halle Haro Work Phone: [facility] Comment on above: Home Care Start: 12-19-2022 End: 12-26-2022 Evaluation and management of inpatient SERENE CAST DO~[id number] [facility] Start: 12-19-2022 Telephone encounter Loy Mcallister MD Work Phone: Urology Comment on above: Results Returning Patient's Call Orders Start: 12-19-2022 End: 12-19-2022 Emergency department patient visit ULISES RAMOS DO Facility:[facility] Start: 12-18-2022 End: 12-18-2022 ambulatory Halle Dale MD Work Phone: [facility] Hematology/Oncology Comment on above: CLL (chronic lymphoc ytic leukemia) (HCC) (Primary Dx); Essential thrombocythemia (HCC) Start: 12-18-2022 End: 12-18-2022 Patient encounter procedure Halle Dale MD Work Phone: [facility] Start: 12-13-2022 End: 12-13-2022 Office outpatient new 60 minutes Nakul Gallegos MD Work Phone: Pulmonary Medicine Comment on above: CIRA on CPAP (Primary Dx); Primary insomnia; Severe muscle deconditioning Start: 12-13-2022 End: 12-13-2022 ambulatory NAKUL GALLEGOS Facility:[facility] Start: 12-12-2022 Telephone encounter Ulises Ramos DO Work Phone: [facility] [place] Start: 12-09-2022 End: 12-09-2022 [facility] Yoselin Dilia PhD Work Phone: [facility] Comment on above: 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 Hematology/Oncology Comment on above: Symptoms Start: 11-28-2022 ambulatory Ulises ortega DO Work Phone: [facility] Comment on above: Patient Question; Pa tient Update; Shortness of Breath Start: 11-27-2022 ambulatory Macie Chatman SURGICAL SCRUB TECHNOLOGIST.CYLINDER TESTER Work Phone: [facility] Comment on above: Iron deficiency anem ia due to chronic blood loss (Primary Dx); SOB (shortness of breath); Lightheadedness Start: 11-27-2022 Telemedicine consult ation with patient Macie Chatman SURGICAL SCRUB TECHNOLOGIST.CYLINDER TESTER Work Phone: [facility] Start: 11-27-2022 Telephone encounter Halle Haro Work Phone: [facility] Hematology/Oncology Comment on above: Results Start: 11-26-2022 End: 11-26-2022 ambulatory Leslie Moon APRN.CYLINDER TESTER Work Phone: [facility] Hematology/Oncology Comment on above: CT chest Essential thrombocyt hemia (HCC) (Primary Dx); CLL (chronic lymphocytic leukemia) (HCC) Start: 11-26-2022 E-mail encounter fro m caregiver Leslie Moon APRN.CYLINDER TESTER Work Phone: [facility] Start: 11-26-2022 End: 11-26-2022 Patient encounter procedure Leslie Moon APRN.CYLINDER TESTER Work Phone: [facility] Start: 11-25-2022 Telephone encounter Halle Haro Work Phone: [facility] Hematology/Oncology Comment on above: Appointment (Psychol ogy (new patient exam) with Dr Yoselin Dobbs 12/09/22, CT Chest 02/24/23, Follow up OV 03/05. Pt notified) Start: 11-22-2022 Refill Halle Dale MD Work Phone: [facility] Hematology/Oncology Comment on above: Refill Request Start: 11-21-2022 Telephone encounter Ulises Ramos DO Work Phone: [facility] Comment on above: Insurance Authorizat ion (PROVIGIL) Start: 11-21-2022 End: 11-21-2022 Patient encounter procedure Ulises Ramos DO Work Phone: [facility] Comment on above: CIRA (obstructive sle ep apnea) (Primary Dx); Deep vein thrombosis (DVT) of femoral vein of left lower extremity, unspecified chronicity (HCC); Essential thrombocythemia (HCC); CLL (chronic lymphocytic leukemia) (HCC) Start: 11-19-2022 End: 11-19-2022 ambulatory Halle Dale MD Work Phone: [facility] Hematology/Oncology Comment on above: Essential thrombocyt hemia (HCC) (Primary Dx); Renal cancer, right (HCC) Start: 11-19-2022 End: 11-19-2022 Patient encounter procedure Halle Dale MD Work Phone: [facility] Start: 11-18-2022 End: 11-19-2022 ambulatory ULISES RAMOS [facility] Start: 11-18-2022 Telephone encounter Ulises Ramos DO Work Phone: [facility] Comment on above: Orders Start: 11-16-2022 Telephone encounter Bertha Chou MD Work Phone: [facility] Hematology/Oncology Comment on above: Patient Question Start: 11-15-2022 Telephone encounter Ulises Ramos DO Work Phone: [facility] Comment on above: Patient Request Refill Request Start: 11-12-2022 Telephone encounter Ulises Ramos DO Work Phone: [facility] Comment on above: Patient Update Results, Lab Start: 11-07-2022 Telephone encounter Ulises Ramos DO Work Phone: [facility]ie [facility] Comment on above: Patient Update; Resu lts, Lab Start: 11-06-2022 End: 11-07-2022 ambulatory ULISES RAMOS [facility] Start: 11-01-2022 Telephone encounter Baiely Hernandez Gastroenterology Comment on above: Results (labs) Start: 10-24-2022 Orders Only Leslie Moon SURGICAL SCRUB TECHNOLOGIST.CYLINDER TESTER Work Phone: [facility] Hematology/Oncology Comment on above: Essential thrombocyt hemia (HCC) (Primary Dx) Community Monitoring Outreach Start: 10-23-2022 Telephone encounter Halle Haro Work Phone: [facility] Hematology/Oncology Comment on above: Results Start: 10-22-2022 ambulatory Wilton dick flag signalerExpress Manager Management Comment on above: Community Monitoring Outreach Start: 10-18-2022 Refill Halle Dale MD Work Phone: [facility] Hematology/Oncology Comment on above: Refill Request Start: 10-17-2022 End: 10-17-2022 Patient encounter procedure Ulises Ramos DO Work Phone: [facility] Comment on above: Deep vein thrombosis (DVT) of femoral vein of left lower extremity, unspecified chronicity (HCC) (Primary Dx) Start: 10-17-2022 End: 10-17-2022 Subsequent hospital visit by physician [place] 2 [facility] Comment on above: Leg edema [R60.0] Start: 10-16-2022 Refill Ulises ortega DO Work Phone: [facility] Comment on above: Refill Request Start: 10-16-2022 End: 10-16-2022 ambulatory Halle Dale MD Work Phone: [facility] Hematology/Oncology Comment on above: Essential thrombocyt hemia (HCC) (Primary Dx); Leg edema; Other insomnia; Renal cancer, right (HCC); CLL (chronic lymphocytic leukemia) (HCC) Start: 10-16-2022 End: 10-16-2022 Patient encounter procedure Halle Dale MD Work Phone: [facility] Start: 10-10-2022 Telephone encounter Halle Haro Work Phone: [facility] Hematology/Oncology Comment on above: Question Patient Question Start: 10-10-2022 End: 10-10-2022 ambulatory Chair 9 [facility] [place] Work Phone: Hematology/Oncology Comment on above: Stage [...] 09-25-2022 Telephone encounter Halle Haro Work Phone: [facility] Hematology/Oncology Comment on above: Results Start: 09-17-2022 Telephone encounter Halle Haro Work Phone: [facility] Hematology/Oncology Comment on above: Question Start: 09-16-2022 ambulatory Wilton dick flag signalerExpress Manager Management Comment on above: Community Monitoring Outreach Start: 08-28-2022 End: 08-28-2022 ambulatory Chair 6 [facility] [place] Work Phone: Hematology/Oncology Comment on above: Acute blood loss ane magali (Primary Dx); Severe anemia; Stage 3 chronic kidney disease, unspecified whether stage 3a or 3b CKD (HCC); Other iron deficiency anemia Start: 08-27-2022 Orders Only Halle Dale MD Work Phone: [facility] Hematology/Oncology Comment on above: Iron deficiency anem ia due to chronic blood loss (Primary Dx) Start: 08-20-2022 End: 08-20-2022 ambulatory Halle Dale MD Work Phone: [facility] Hematology/Oncology Comment on above: Iron deficiency anem ia due to chronic blood loss (Primary Dx) Start: 08-20-2022 End: 08-20-2022 Patient encounter procedure Halle Dale MD Work Phone: [facility] Start: 08-15-2022 ambulatory Wilton dick flag signalerExpress Manager Management Comment on above: Community Monitoring Outreach Start: 08-15-2022 Telephone encounter Ulises Ramos DO Work Phone: [facility] Comment on above: Results; Patient Upd ate Start: 08-13-2022 End: 08-13-2022 Subsequent hospital visit by physician Ct [place] [facility]IO CT SCAN HW STOW Comment on above: Chronic cough [R05.3 ] Start: 08-12-2022 Telephone encounter Halle Haro Work Phone: [facility] Hematology/Oncology Comment on above: Appointment Start: 08-07-2022 End: 08-07-2022 ambulatory Hortencia Gallardo MD Work Phone: Gastroenterology Comment on above: Gastrointestinal hem orrhage associated with angiodysplasia of stomach and duodenum (Primary Dx); Gastrointestinal hemorrhage, unspecified gastrointestinal hemorrhage type; Iron deficiency anemia due to chronic blood loss Start: 08-07-2022 End: 08-07-2022 Telemedicine consultation with patient Hortencia Gallardo MD Work Phone: [facility] Start: 08-05-2022 Telephone encounter Ulises Ramos DO Work Phone: [facility] Comment on above: Patient Question Start: 08-02-2022 Orders Only Halle Dale MD Work Phone: [facility] Hematology/Oncology Comment on above: Other insomnia (Prim erendira Dx); Renal cancer, right (HCC); Essential thrombocythemia (HCC) Start: 08-01-2022 Telephone encounter Ulises Ramos DO Work Phone: [facility] Comment on above: Consult Results Start: 07-26-2022 Telephone encounter Halle Haro Work Phone: [facility] Hematology/Oncology Comment on above: Refill Request Start: 07-25-2022 Telephone encounter Sean alston MD Work Phone: [facility] Cardiology [place] Comment on above: Credit Verifier - O ther (NIKOLAS Phillip) Referral Request Start: 07-22-2022 Refill Jocelyne Mccullough APRN.CNP Work Phone: [facility] Comment on above: Refill Request Start: 07-22-2022 Telephone encounter Ulises Ramos DO Work Phone: [facility] Comment on above: Results Start: 07-18-2022 End: 07-18-2022 ambulatory Pulm [place] [facility] Comment on above: COPD Start: 07-18-2022 End: 07-18-2022 Patient encounter procedure Pulm [facility]ct Lab [place] [facility] Start: 07-18-2022 End: 07-18-2022 Subsequent hospital visit by physician [place] 1 [facility] ULTRA [facility] STOW Comment on above: Iron deficiency anem ia due to chronic blood loss [D50.0] Start: 07-15-2022 End: 07-15-2022 Patient encounter procedure Sean Mays MD Work Phone: [facility] Cardiology [place] Comment on above: NSTEMI (non-ST eleva kali myocardial infarction) (HCC) (Primary Dx); Post PTCA; Mixed hyperlipidemia; Essential hypertension; Chronic kidney disease, unspecified CKD stage; Gastrointestinal hemorrhage associated with intestinal diverticulosis; CLL (chronic lymphocytic leukemia) ([facility]); Personal history of DVT (deep vein thrombosis) Start: 07-11-2022 Telephone encounter Ulises Ramos DO Work Phone: [facility] Comment on above: Orders Medication Question (Kenji directions) Care Coordination Start: 07-11-2022 End: 07-11-2022 Patient encounter procedure Ulises Ramos DO Work Phone: [facility] Comment on above: Iron deficiency anem ia due to chronic blood loss (Primary Dx); Acute deep vein thrombosis (DVT) of popliteal vein of left lower extremity (HCC); Right calf pain Start: 07-04-2022 Telephone encounter Sean alston MD Work Phone: [facility] Cardiology [place] Comment on above: Results Patient Question Start: 07-04-2022 End: 07-04-2022 Subsequent hospital visit by physician [facility] 2 [facility] Comment on above: Deep vein thrombosis (DVT) of left lower extremity, unspecified chronicity, unspecified vein (HCC) [I82.402] Start: 07-02-2022 End: 07-02-2022 Patient encounter procedure Ulises Ramos DO Work Phone: [facility] [employer] Comment on above: Chronic obstructive pulmonary disease with acute exacerbation (HCC) (Primary Dx); Deep vein thrombosis (DVT) of left lower extremity, unspecified chronicity, unspecified vein (HCC); Localized swelling, mass and lump, left upper limb ; History of colonic polyps Start: 06-30-2022 Refill Halle Dale MD Work Phone: [facility] Hematology/Oncology Comment on above: Refill Request Start: 06-28-2022 Telephone encounter Ulises Ramos DO Work Phone: [facility] [employer] Comment on above: Appointment Start: 06-26-2022 End: 06-26-2022 ambulatory Sia Hodge PT Work Phone: [facility] Comment on above: Physical decondition ing (Primary Dx); Impaired functional mobility, balance, gait, and endurance Start: 06-24-2022 End: 06-24-2022 ambulatory Kaleigh Mueller PTA Work Phone: [facility] Comment on above: Physical decondition ing (Primary Dx) Community Monitoring Outreach Start: 06-21-2022 End: 06-21-2022 ambulatory Halle Dale MD Work Phone: [facility] Hematology/Oncology Comment on above: Essential thrombocyt hemia (HCC) (Primary Dx) Start: 06-21-2022 End: 06-21-2022 Patient encounter procedure Halle Dale MD Work Phone: [facility] Start: 06-19-2022 End: 06-19-2022 ambulatory Sia Hodge PT Work Phone: [facility] Comment on above: Physical decondition ing (Primary Dx); Impaired functional mobility, balance, gait, and endurance; Muscular deconditioning Start: 06-14-2022 Telephone encounter Ulises Ramos DO Work Phone: [facility] [place] [employer] Comment on above: Forms (Mon's) Start: 06-14-2022 End: 06-14-2022 ambulatory Sia Hodge PT Work Phone: [facility] Comment on above: Physical decondition ing (Primary Dx); Impaired functional mobility, balance, gait, and endurance; Muscular deconditioning Start: 06-12-2022 End: 06-12-2022 ambulatory Sia Hodge PT Work Phone: [facility] Comment on above: Physical decondition [...] 06-10-2022 Refill Ulises ortega DO Work Phone: [facility] Comment on above: Refill Request Start: 06-07-2022 End: 06-07-2022 ambulatory Sia Hodge PT Work Phone: [facility] Comment on above: Physical decondition ing (Primary Dx); Impaired functional mobility, balance, gait, and endurance; Muscular deconditioning Start: 06-05-2022 End: 06-05-2022 Patient encounter procedure Ulises Ramos DO Work Phone: [facility] [employer] Comment on above: Bronchitis (Primary Dx) Start: 06-03-2022 End: 06-03-2022 ambulatory Sia Hodge PT Work Phone: [facility] Comment on above: Physical decondition ing (Primary Dx); Impaired functional mobility, balance, gait, and endurance Start: 05-31-2022 End: 05-31-2022 ambulatory Sia Hodge PT Work Phone: [facility] Comment on above: Physical decondition ing (Primary Dx) Start: 05-23-2022 ambulatory Wilton M Staff ord flag signalerExpress Manager Management Comment on above: Community Monitoring Outreach Start: 05-22-2022 Refill Halle Dale MD Work Phone: [facility] Hematology/Oncology Comment on above: Refill Request Start: 05-14-2022 Refill Lucrecia baptiste APRN.CYLINDER TESTER Work Phone: [facility] Comment on above: Refill Request Start: 04-30-2022 Telephone encounter Hortencia faagn MD Work Phone: Gastroenterology Comment on above: Patient Question Start: 04-25-2022 Refill Halle Dale MD Work Phone: [facility] Hematology/Oncology Comment on above: Refill Request Start: 04-22-2022 Telephone encounter Vivian Galvin RN Work Phone: Gastroenterology Comment on above: voicemail Start: 04-18-2022 ambulatory Wilton M Staff ord flag signalerExpress Manager Management Comment on above: Community Monitoring Outreach Start: 04-17-2022 Telephone encounter Annmarie valdez PA-C Work Phone: [facility] Comment on above: Orders; Results Start: 04-17-2022 End: 04-17-2022 Subsequent hospital visit by physician [facility] [place] [facility] Comment on above: URI with cough and c ongestion [J06.9] Start: 04-17-2022 End: 04-17-2022 Patient encounter procedure Annmarie Ronquillo PA-C Work Phone: [facility] Comment on above: URI with cough and c ongestion (Primary Dx); Wheeze Start: 04-05-2022 Telephone encounter Hortencia fagan MD Work Phone: Gastroenterology Comment on above: PA for Octerotide-Sa ndostatin Start: 04-04-2022 Telephone encounter Halle Haro Work Phone: [facility] Hematology/Oncology Comment on above: Question Start: 04-03-2022 Refill Halle Dale MD Work Phone: [facility] Hematology/Oncology Comment on above: Refill Request Start: 04-03-2022 End: 04-03-2022 ambulatory Sia Ayesha PT Work Phone: [facility] Comment on above: Impaired functional mobility, balance, gait, and endurance (Primary Dx); Muscular deconditioning Start: 03-27-2022 End: 03-27-2022 ambulatory Hortencia Gallardo MD Work Phone: Gastroenterology Comment on above: Iron deficiency anem ia due to chronic blood loss (Primary Dx) Start: 03-27-2022 End: 03-27-2022 Telemedicine consultation with patient Hortencia Gallardo MD Work Phone: [facility] Start: 03-25-2022 End: 03-25-2022 ambulatory Kaleigh Mueller SPRAYER HAND Work Phone: [place] [facility] Comment on above: Impaired functional mobility, balance, gait, and endurance (Primary Dx) Start: 03-22-2022 Refill Halle Dale MD Work Phone: [facility] Hematology/Oncology Comment on above: Refill Request Start: 03-22-2022 End: 03-22-2022 ambulatory Halle Dale MD Work Phone: [facility] Hematology/Oncology Comment on above: Essential thrombocyt hemia (HCC) Start: 03-22-2022 End: 03-22-2022 Patient encounter procedure Halle Dale MD Work Phone: [facility] Start: 03-21-2022 End: 03-21-2022 ambulatory Chair 2 [facility] Hematology/Oncology Comment on above: Iron deficiency anem ia due to chronic blood loss (Primary Dx); Other iron deficiency anemia; Gastroesophageal reflux disease, unspecified whether esophagitis present Start: 03-21-2022 Telephone encounter Loy Mcallister MD Work Phone: [facility] Comment on above: Results Start: 03-18-2022 End: 03-18-2022 ambulatory Chair 4 [facility] Hematology/Oncology Comment on above: Iron deficiency anem ia due to chronic blood loss (Primary Dx); Other iron deficiency anemia; Gastroesophageal reflux disease, unspecified whether esophagitis present Start: 03-15-2022 Refill Halle Dale MD Work Phone: [facility] Hematology/Oncology Comment on above: Refill Request Start: 03-14-2022 ambulatory Wilton dick flag signalerExpress Manager Management Comment on above: Community Monitoring Outreach Start: 03-13-2022 End: 03-13-2022 ambulatory Chair 6 [facility] Hematology/Oncology Comment on above: Iron deficiency anem ia due to chronic blood loss (Primary Dx); Other iron deficiency anemia; Gastroesophageal reflux disease, unspecified whether esophagitis present Start: 03-04-2022 End: 03-04-2022 ambulatory Bed 1 [facility] Hematology/Oncology Comment on above: Iron deficiency anem ia due to chronic blood loss (Primary Dx); Other iron deficiency anemia; Gastroesophageal reflux disease, unspecified whether esophagitis present Start: 02-26-2022 End: 02-26-2022 ambulatory Bed 1 [facility] Hematology/Oncology Comment on above: Iron deficiency anem ia due to chronic blood loss (Primary Dx); Other iron deficiency anemia; Gastroesophageal reflux disease, unspecified whether esophagitis present Start: 02-20-2022 Telephone encounter Ulises Ramos DO Work Phone: [facility] Comment on above: Orders; Referral Inf ormation (PT) Start: 02-15-2022 Telephone encounter Loy Mcallister MD Work Phone: [facility] Comment on above: Appointment Start: 02-13-2022 Telephone encounter Halle Haro Work Phone: [facility] Hematology/Oncology Comment on above: Question Start: 02-13-2022 End: 02-13-2022 Subsequent hospital visit by physician [facility] 2 [facility] Comment on above: N18.32 Start: 02-06-2022 ambulatory Louie Garg RN Express [employer] Management Comment on above: Community Monitoring Outreach Start: 01-23-2022 Telephone encounter Ulises Ramos DO Work Phone: [facility] Comment on above: Patient Question; Me dication Problem Start: 01-20-[address] Aleja garcia Jojo Facility:[facility] Start: 01-17-2022 End: 01-17-2022 Patient encounter procedure Loy Mcallister MD Work Phone: Urology Comment on above: Renal cancer, right (HCC) (Primary Dx); Atypical small acinar proliferation of prostate; Elevated prostate specific antigen (PSA); Hydrocele in adult Start: 01-17-2022 Telephone encounter Loy Mcallister MD Work Phone: [facility] Comment on above: Additional Labs Start: 01-16-2022 ambulatory Ulises ortega DO Work Phone: [facility] Start: 01-16-2022 Follow-up encounter Ulises Ramos DO Work Phone: [facility] Comment on above: Visit Follow Up Ques tion Start: 12-26-2021 Telephone encounter Loy Mcallister MD Work Phone: [facility] Comment on above: Results (/) Start: 12-19-2021 ambulatory Louie Garg flag signalerExpress Manager Management Comment on above: Community Monitoring Outreach Start: 12-18-2021 Refill Halle Dale MD Work Phone: [facility] Hematology/Oncology Comment on above: Refill Request Start: 12-12-2021 End: 12-12-2021 ambulatory Wilbert Watkins MD Work Phone: Gastroenterology Comment on above: Iron deficiency anem ia due to chronic blood loss (Primary Dx) Start: 12-12-2021 End: 12-12-2021 Telemedicine consultation with patient Wilbert Watkins MD Work Phone: [facility] Start: 12-07-2021 End: 12-07-2021 ambulatory Sia Hodge PT Work Phone: [facility] Comment on above: Left hip pain (Prima ry Dx); Impaired functional mobility, balance, gait, and endurance Start: 12-04-2021 Telephone encounter Intestinal Trans Coord Main Work Phone: [facility] Comment on above: Referral - Liver Txp ; Referral Request Start: 12-03-2021 End: 12-03-2021 Patient encounter procedure Ulises Ramos DO Work Phone: [facility] [place] Comment on above: Chronic diarrhea (Pr imary Dx); Neck pain Start: 12-01-2021 End: 12-01-2021 ambulatory Sia Hodge PT Work Phone: [facility] Comment on above: Left hip pain (Prima ry Dx); Impaired functional mobility, balance, gait, and endurance Start: 11-22-2021 Refill Halle Dale MD Work Phone: [facility] Hematology/Oncology Comment on above: Refill Request Start: 11-19-2021 Telephone encounter Halle Haro Work Phone: [facility] Hematology/Oncology Comment on above: Question Start: 11-19-2021 End: 11-19-2021 ambulatory Kaleigh Mueller SPRAYER HAND Work Phone: [facility] Comment on above: Left hip pain (Prima ry Dx) Start: 11-13-2021 ambulatory Louie Garg RN Ambulatory [facility] Comment on above: Community Monitoring Outreach (CKD Telephonic CDM Outreach) Start: 11-12-2021 End: 11-12-2021 ambulatory Heaven Shelley SPRAYER HAND Work Phone: [facility] Comment on above: Impaired functional mobility, balance, gait, and endurance (Primary Dx); Left hip pain Start: 11-07-2021 Telephone encounter Jorge Roman MD Work Phone: [facility] [place] Comment on above: Patient Question Start: 2021 ambulatory Louie Garg RN Ambulatory [facility] Comment on above: Community Monitoring Outreach Community Monitoring Outreach (CKD Telephnic CDM Outreach) Start: 2021 Refill Sean Mays MD Work Phone: [facility] [place] Comment on above: Refill Request Start: 10-25-2021 Telephone encounter Ulises Ramos DO Work Phone: [facility] [place] [employer] Comment on above: Results Start: 10-24-2021 Telephone encounter Halle Haro Work Phone: [facility] Hematology/Oncology Comment on above: Question Start: 10-24-2021 End: 10-24-2021 ambulatory Heaven Arbuthshruti SPRAYER HAND Work Phone: [facility] Comment on above: Impaired functional mobility, balance, gait, and endurance (Primary Dx); Left hip pain; Chronic pain of left knee Start: 10-23-2021 Telephone encounter Ulises Ramos DO Work Phone: [facility] [place] [employer] Comment on above: Medication Question; Referral Information (sleep medicine) Start: 10-22-2021 End: 10-22-2021 Patient encounter procedure Ulises Ramos DO Work Phone: [facility] [place] [employer] Comment on above: Diarrhea, unspecifie d type (Primary Dx); Acute deep vein thrombosis (DVT) of left lower extremity, unspecified vein (HCC); Iron deficiency anemia due to chronic blood loss Start: 10-22-2021 End: 10-22-2021 ambulatory Heaven Arbuthnot SPRAYER HAND Work Phone: [facility] Comment on above: Impaired functional mobility, balance, gait, and endurance (Primary Dx); Left hip pain; Chronic pain of left knee Start: 10-21-2021 Refill Halle Dale MD Work Phone: [facility] Hematology/Oncology Comment on above: Refill Request Start: 10-18-2021 Refill Sean Mays MD Work Phone: [facility] Comment on above: Refill Request Start: 10-18-2021 Telephone encounter Halle Haro Work Phone: [facility] Hematology/Oncology Comment on above: Question Start: 10-17-2021 Telephone encounter Halle Haro Work Phone: [facility] Hematology/Oncology Comment on above: Appointment (Having blood transfusion tomorrow. Can you put in orders. ) Start: 10-16-2021 Orders Only Halle Dale MD Work Phone: [facility] Hematology/Oncology Comment on above: Iron deficiency anem ia due to chronic blood loss (Primary Dx) RE: Blood test Start: 10-11-2021 Refill Halle Dale MD Work Phone: [facility] Hematology/Oncology Comment on above: Refill Request Start: 10-10-2021 ambulatory oLuie Garg RN [employer] Comment on above: Community Monitoring Outreach (CKD Telephonic CDM Outreach) Start: 10-10-2021 Refill Sean Mays MD Work Phone: [facility] Comment on above: Refill Request Start: 10-09-2021 Telephone encounter Ulises Ramos DO Work Phone: [facility] [place] Comment on above: Patient Question Question Start: 10-09-2021 End: 10-09-2021 ambulatory Sia Hodge PT Work Phone: [facility] Comment on above: Impaired functional mobility, balance, gait, and endurance (Primary Dx); Left hip pain Start: 10-04-2021 Telephone encounter Melissa hartman APRN.CYLINDER TESTER Work Phone: [facility] Comment on above: Results Start: 10-03-2021 End: 10-03-2021 ambulatory Heaven Shelley SPRAYER HAND Work Phone: [facility] Comment on above: Impaired functional mobility, balance, gait, and endurance (Primary Dx); Chronic pain of left knee; Left hip pain Start: 10-02-2021 End: 10-02-2021 Patient encounter procedure Melissa Raymond APRN.CYLINDER TESTER Work Phone: [facility] Comment on above: Post PTCA (Primary D x); Mixed hyperlipidemia Start: 09-28-2021 Telephone encounter Delaney Turk [facility] Comment on above: Compliance Adherence (Adherence Packaging ) Start: 09-26-2021 Telephone encounter Halle Haro Work Phone: [facility] Hematology/Oncology Comment on above: Patient Question (Nikolas peacock wants to know if he has an altitude limit he has to stay under? He is traveling and will be flying over 8,000 feet. ) Start: 09-26-2021 End: 09-26-2021 ambulatory Heaven Karsten SPRAYER HAND Work Phone: [facility] Comment on above: Impaired functional mobility, balance, gait, and endurance (Primary Dx); Chronic pain of left knee; Left hip pain Start: 09-25-2021 ambulatory Wilton Melchor [facility] Comment on above: Community Monitoring Outreach (CKD Telephonic CDM Outreach ) Start: 09-24-2021 End: 09-24-2021 ambulatory Heaven Shelley SPRAYER HAND Work Phone: [facility] Comment on above: Impaired functional mobility, balance, gait, and endurance (Primary Dx) Start: 09-19-2021 End: 09-19-2021 ambulatory Halle Dale MD Work Phone: [facility] Hematology/Oncology Comment on above: Iron deficiency anem ia due to chronic blood loss (Primary Dx); Other insomnia Start: 09-19-2021 End: 09-19-2021 Patient encounter procedure Halle Dale MD Work Phone: [facility] Start: 09-13-2021 Telephone encounter Loy Mcallister MD Work Phone: Urology Comment on above: psa results Start: 09-13-2021 End: 09-13-2021 ambulatory Sierra Ortiz PT Work Phone: [facility] Comment on above: Impaired functional mobility, balance, gait, and endurance (Primary Dx); Chronic pain of left knee; Left hip pain Start: 09-12-2021 End: 09-12-2021 Patient encounter procedure Ulises Ramos DO Work Phone: [facility] [place] Comment on above: Elevated PSA (Primar y Dx); Primary insomnia Start: 09-11-2021 ambulatory Kristal De Leon RN Ambulator y Care Management Comment on above: ELIECER CHANEY RN ( [employer]) Start: 09-05-2021 End: 09-05-2021 ambulatory Heaven Shelley SPRAYER HAND Work Phone: [facility] Comment on above: Impaired functional mobility, balance, gait, and endurance (Primary Dx); Chronic pain of left knee; Left hip pain Start: 09-04-2021 Telephone encounter Ulises Ramos DO Work Phone: [facility] [place] Comment on above: Nurse Triage Call Start: 08-29-2021 End: 08-29-2021 ambulatory Heaven Espinosanot SPRAYER HAND Work Phone: [facility] Comment on above: Impaired functional mobility, balance, gait, and endurance (Primary Dx); Chronic pain of left knee; Left hip pain Community Monitoring Outreach (CKD Telephonic CDM Outreach) Start: 08-27-2021 End: 08-27-2021 ambulatory Sierra Ortiz PT Work Phone: [facility] Comment on above: Impaired functional mobility, balance, gait, and endurance (Primary Dx); Chronic pain of left knee; Left hip pain Start: 08-21-2021 Refill Jorge sharma MD Work Phone: [facility] Comment on above: Refill Request Start: 08-15-2021 Orders Only Loy Mcallister MD Work Phone: Urology Comment on above: Elevated prostate sp ecific antigen (PSA) (Primary Dx) Results Start: 08-14-2021 Telephone encounter Halle Haro Work Phone: [facility] Hematology/Oncology Comment on above: Orders CLL (chronic lymphoc ytic leukemia) (HCC) (Primary Dx) Start: 08-14-2021 End: 08-14-2021 ambulatory Heaven Shelley SPRAYER HAND Work Phone: [facility] Comment on above: Impaired functional mobility, balance, gait, and endurance (Primary Dx); Chronic pain of left knee; Left hip pain Start: 08-13-2021 ambulatory Louie Garg flag signalerExpress Manager Management Comment on above: Community Monitoring Outreach (CKD Telephonic CDM Outreach) Start: 08-09-2021 Telephone encounter Ulises Ramos DO Work Phone: [facility] [place] Comment on above: Forms (Mon's) Start: 08-09-2021 End: 08-09-2021 ambulatory Sierra Ortiz PT Work Phone: [facility] Comment on above: Impaired functional mobility, balance, gait, and endurance (Primary Dx); Chronic pain of left knee; Left hip pain Start: 08-06-2021 ambulatory Louie Garg flag signalerExpress Manager Management Comment on above: Community Monitoring Outreach (CKD Telephonic CDM Outreach) Start: 08-01-2021 Telephone encounter Ulises Ramos DO Work Phone: [facility] [place] Comment on above: Medication Problem Start: 08-01-2021 End: 08-01-2021 ambulatory Heaven Espinosanot SPRAYER HAND Work Phone: [facility] Comment on above: Impaired functional mobility, balance, gait, and endurance (Primary Dx); Chronic pain of left knee; Left hip pain Start: 07-30-2021 End: 07-30-2021 ambulatory Heaven Arbuthnot SPRAYER HAND Work Phone: [facility] Comment on above: Impaired functional mobility, balance, gait, and endurance (Primary Dx); Left hip pain; Chronic pain of left knee; Pain in left hip Start: 07-27-2021 Telephone encounter Jorge Roman MD Work Phone: [facility] [place] Comment on above: Initial Consult (Inrabia tiaminna consult [id number] ENT Right ear pain Nasal sore) Start: 07-27-2021 End: 07-27-2021 ambulatory Sierra Ortiz PT Work Phone: [facility] Comment on above: Impaired functional mobility, balance, gait, and endurance (Primary Dx); Left hip pain Start: 07-26-2021 ambulatory Louie Garg RN [employer] Comment on above: Community Monitoring Outreach (CKD Telephonic CDM Outreach) Start: 07-26-2021 Refill Ulises ortega DO Work Phone: [facility] [place] Comment on above: Refill Request Start: 07-25-2021 Telephone encounter Ulises Ramos DO Work Phone: [facility] Comment on above: Forms (mon) Start: 07-25-2021 End: 07-25-2021 ambulatory Heaven Shelley SPRAYER HAND Work Phone: [facility] Comment on above: Impaired functional mobility, balance, gait, and endurance (Primary Dx); Left hip pain; Chronic pain of left knee Start: 07-20-2021 Telephone encounter Halle Haro Work Phone: [facility] Comment on above: Question Start: 07-20-2021 End: 07-20-2021 ambulatory Eileen Medrano SPRAYER HAND Work Phone: [facility] Comment on above: Impaired functional [...] Telephone encounter Ulises Ramos DO Work Phone: [facility] Comment on above: Appointment (Resched ule appt-Provider out of office) Start: 07-11-2021 ambulatory Louie Garg RN [employer] Comment on above: Community Monitoring Outreach (CKD CDM Enrollment) Start: 07-06-2021 End: 07-06-2021 ambulatory Sia Hodge PT Work Phone: [facility] Comment on above: Impaired functional mobility, balance, gait, and endurance (Primary Dx); Chronic pain of left knee; Left hip pain Start: 08-21-2017 Ambulatory [facility] Procedures Date Procedure Procedure Detail Performing Clinician Start: 11-22-2024 Creatinine blood Loraine Nelson MD Work Phone: Start: 11-21-2024 Sedimentation rate r bc automated Rosa Arreaga APRN-CYLINDER TESTER Work Phone: Start: 11-20-2024 Assay of magnesium Loraine Nelson MD Work Phone: Start: 11-20-2024 Hepatic function panel Loraine Nelson MD Work Phone: Start: 11-20-2024 Blood smear peripher al interp phys w/writ report Loraine Nelson MD Work Phone: Start: 11-20-2024 CBC AND ELECTRONIC DIFF Loraine Nelson MD Work Phone: Start: 11-20-2024 Complete blood count with white cell differential, automated Loraine Nelson MD Work Phone: Start: 11-20-2024 [id number] Loraine Nelson MD Work Phone: Start: 02-20-2023 ECG 12-LEAD MELINDA BRADSHAW Start: 02-20-2023 Ecg routine ecg w/le ast 12 lds w/i&r Melinda Bradshaw MD Work Phone: Start: 12-19-2022 Transfusion of Nonautologous Red Blood Cells into Peripheral Vein, Percutaneous Approach SERENE CSAT DO~[id number] Start: 12-11-2022 Antibody screen HORTENCIA GALLARDO Comment on above: Order Comment: Speci men Type: BLOOD SPECIMENOrdering Facility: [facility] Address: [address] [place] [address] Performed By: #### T SCR ####CC MAIN BLOOD BANKCLIA [id number] [address] Start: 12-08-2022 Antibody screen HORTENCIA GALLARDO Comment on above: Order Comment: Speci men Type: BLOOD SPECIMENOrdering Facility: [facility] Address: [address] [place] [address] Performed By: #### T SCR ####CC MAIN BLOOD BANKCLIA [id number] [address] Start: 10-16-2022 Antibody screen Halle schilling MD Work Phone: Start: 10-09-2022 Colonoscopy flx dx w /collj spec when pfrmd Hortencia Gallardo MD Work Phone: Start: 10-09-2022 Endoscopy upper smal l intestine Hortencia Gallardo MD Work Phone: Start: 10-09-2022 Colonoscopy Mc Q3r6 Work Phone: Start: 10-08-2022 Compatibility each u nit electronic Halle Dale MD Work Phone: Start: 08-28-2022 End: 08-28-2022 RBC TRANSFUSION INSTRUCTION ([place] Halle Dale MD Work Phone: Start: 08-27-2022 Compatibility each u nit electronic Halle Dale MD Work Phone: Start: 08-13-2022 Ct thorax w/contrast material Ulsies Ramos DO Work Phone: Start: 07-18-2022 Brncdilat [...] 10-09-2032 Screening for malignant neoplasm of colon [facility] Start: 10-10-2027 Colonoscopy COLONOSCOPY [facility] Start: 10-10-2027 COLORECTAL CANCER SCREENING COLORECTAL CANCER SCREENING [facility] Start: 10-10-2027 Screening for malignant neoplasm of colon [facility] Start: 08-22-2027 Screening for malignant neoplasm of colon [facility] Start: 07-03-2027 Lipid 1996 panel - Serum or Plasma Lipid Screening [facility] Start: 07-03-2027 Lipid panel Lipid Screening [facility] Start: 07-03-2027 LIPID SCREEN LIPID SCREEN [facility] Start: 04-23-2027 LIPID SCREEN LIPID SCREEN [facility] Start: 03-18-2027 PROSTATE CANCER SCREENING DISCUSSION PROSTATE CANCER SCREENING DISCUSSION [facility] Start: 01-17-2027 LIPID SCREEN LIPID SCREEN [facility] Start: 12-13-2026 PROSTATE CANCER SCREENING DISCUSSION PROSTATE CANCER SCREENING DISCUSSION [facility] Start: 10-03-2026 LIPID SCREEN LIPID SCREEN [facility] Start: 09-27-2026 PROSTATE CANCER SCREENING DISCUSSION PROSTATE CANCER SCREENING DISCUSSION [facility] Start: 09-11-2026 PROSTATE CANCER SCREENING DISCUSSION PROSTATE CANCER SCREENING DISCUSSION [facility] Start: 08-14-2026 PROSTATE CANCER SCREENING DISCUSSION PROSTATE CANCER SCREENING DISCUSSION [facility] Start: 01-19-2026 LIPID SCREEN LIPID SCREEN [facility] Start: 01-19-2026 PROSTATE CANCER SCREENING DISCUSSION PROSTATE CANCER SCREENING DISCUSSION [facility] Start: 12-17-2025 DIABETES SCREEN DIABETES SCREEN [facility] Start: 12-17-2025 Diabetes Screening Diabetes Screening [facility] Start: 12-11-2025 DIABETES SCREEN DIABETES SCREEN [facility] Start: 12-10-2025 DIABETES SCREEN DIABETES SCREEN [facility] Start: 12-09-2025 DIABETES SCREEN DIABETES SCREEN [facility] Start: 11-26-2025 DIABETES SCREEN DIABETES SCREEN [facility] Start: 11-11-2025 DIABETES SCREEN DIABETES SCREEN [facility] Start: 10-30-2025 DIABETES SCREEN DIABETES SCREEN [facility] Start: 10-07-2025 DIABETES SCREEN DIABETES SCREEN [facility] Start: 09-23-2025 DIABETES SCREEN DIABETES SCREEN [facility] Start: 09-10-2025 DIABETES SCREEN DIABETES SCREEN [facility] Start: 08-26-2025 DIABETES SCREEN DIABETES SCREEN [facility] Start: 06-19-2025 DIABETES SCREEN DIABETES SCREEN [facility] Start: 12-13-2024 Influenza vaccination INFLUENZA VACCINE (#1) [facility] Start: 06-19-2024 DIABETES SCREEN DIABETES SCREEN [facility] Start: 01-08-2024 Covid-19 Vaccine ( season) Covid-19 Vaccine ( season) [facility] Start: 01-08-2024 End: 01-08-2024 ambulatory 01/08/2024 11:00 AM EDT OT/PT/Speech Visit [facility] [address] [place], [place] [id number] Андрей Mon, PT [address] [place] [phone] TIA - requested acupuncture,would like dry needling if appropriate [facility] Comment on above: TIA - requested acupuncture,would like d ry needling if appropriate Start: 01-01-2024 End: 01-01-2024 ambulatory 01/01/2024 10:15 AM EDT OT/PT/Speech Visit [facility] [address] [place] [address] [phone] Heaven Shelley, SPRAYER HAND [address] [place] [address] TIA - requested acupuncture,would like dry needling if appropriate [facility] Comment on above: TIA - requested acupuncture,would like d ry needling if appropriate Start: 12-25-2023 End: 12-25-2023 ambulatory 12/25/2023 9:30 AM EDT OT/PT/Speech Visit [facility] [address] [place], [place] [phone] Heaven Shelley, SPRAYER HAND [address] [place], [place] [phone] TIA - requested acupuncture,would like dry needling if appropriate [facility] Comment on above: TIA - requested acupuncture,would like d ry needling if appropriate Start: 12-18-2023 Complete blood count Hemoglobin/Hematocrit [facility] Start: 12-18-2023 Creatinine measurement Serum Creatinine [facility] Start: 12-18-2023 HEMOGLOBIN/HEMATOCRIT HEMOGLOBIN/HEMATOCRIT [facility] Start: 12-18-2023 SERUM CREATININE SERUM CREATININE [facility] Start: 12-18-2023 End: 12-18-2023 ambulatory 12/18/2023 8:45 AM EDT OT/PT/Speech Visit [facility] [address] [place], [place] [phone] Lexie Valverde, PT [address] [place] [phone] TIA - requested acupuncture,would like dry needling if appropriate [facility] Comment on above: TIA - requested acupuncture,would like d ry needling if appropriate Start: 12-14-2023 COVID-19 VACCINE ( season) COVID-19 VACCINE ( season) [facility] Start: 12-14-2023 Influenza vaccination Influenza Vaccine (#1) [facility] Start: 12-12-2023 HEMOGLOBIN/HEMATOCRIT HEMOGLOBIN/HEMATOCRIT [facility] Start: 12-12-2023 SERUM CREATININE SERUM CREATININE [facility] Start: 12-11-2023 HEMOGLOBIN/HEMATOCRIT HEMOGLOBIN/HEMATOCRIT [facility] Start: 12-11-2023 SERUM CREATININE SERUM CREATININE [facility] Start: 12-10-2023 HEMOGLOBIN/HEMATOCRIT HEMOGLOBIN/HEMATOCRIT [facility] Start: 12-10-2023 SERUM CREATININE SERUM CREATININE [facility] Start: 11-27-2023 HEMOGLOBIN/HEMATOCRIT HEMOGLOBIN/HEMATOCRIT [facility] Start: 11-27-2023 SERUM CREATININE SERUM CREATININE [facility] Start: 11-22-2023 ANNUAL PCP TEAM CHRONIC DISEASE VISIT ANNUAL PCP TEAM CHRONIC DISEASE VISIT [facility] Start: 11-22-2023 BP CONTROLLED (<130/80) BP CONTROLLED (<130/80) [facility] Start: 11-19-2023 SERUM CREATININE SERUM CREATININE [facility] Start: 11-12-2023 HEMOGLOBIN/HEMATOCRIT HEMOGLOBIN/HEMATOCRIT [facility] Start: 11-12-2023 SERUM CREATININE SERUM CREATININE [facility] Start: 11-12-2023 End: 11-12-2023 ambulatory 11/12/2023 11:00 AM EDT [facility] [address] [id number] Hortencia Gallardo MD [facility] [address] [place] [id number] F/U- Bleeding Gastroenterology Comment on above: F/U- Bleeding Start: 10-31-2023 HEMOGLOBIN/HEMATOCRIT HEMOGLOBIN/HEMATOCRIT [facility] Start: 10-31-2023 SERUM CREATININE SERUM CREATININE [facility] Start: 10-18-2023 ANNUAL PCP TEAM CHRONIC DISEASE VISIT ANNUAL PCP TEAM CHRONIC DISEASE VISIT [facility] Start: 10-17-2023 HEMOGLOBIN/HEMATOCRIT HEMOGLOBIN/HEMATOCRIT [facility] Start: 10-08-2023 HEMOGLOBIN/HEMATOCRIT HEMOGLOBIN/HEMATOCRIT [facility] Start: 10-08-2023 SERUM CREATININE SERUM CREATININE [facility] Start: 09-24-2023 End: 09-24-2023 ambulatory 09/24/2023 4:00 PM EDT [facility] [address] [address] Hortencia Gallardo MD [facility] [address] [place] [id number] F/U Gastroenterology Comment on above: F/U Start: 09-24-2023 HEMOGLOBIN/HEMATOCRIT HEMOGLOBIN/HEMATOCRIT [facility] Start: 09-24-2023 SERUM CREATININE SERUM CREATININE [facility] Start: 09-11-2023 HEMOGLOBIN/HEMATOCRIT HEMOGLOBIN/HEMATOCRIT [facility] Start: 09-11-2023 SERUM CREATININE SERUM CREATININE [facility] Start: 08-27-2023 HEMOGLOBIN/HEMATOCRIT HEMOGLOBIN/HEMATOCRIT [facility] Start: 08-27-2023 SERUM CREATININE SERUM CREATININE [facility] Start: 08-15-2023 HEMOGLOBIN/HEMATOCRIT HEMOGLOBIN/HEMATOCRIT [facility] Start: 08-07-2023 HEMOGLOBIN/HEMATOCRIT HEMOGLOBIN/HEMATOCRIT [facility] Start: 08-07-2023 SERUM CREATININE SERUM CREATININE [facility] Start: 07-31-2023 ANNUAL PCP TEAM CHRONIC DISEASE VISIT ANNUAL PCP TEAM CHRONIC DISEASE VISIT [facility] Start: 07-31-2023 HEMOGLOBIN/HEMATOCRIT HEMOGLOBIN/HEMATOCRIT [facility] Start: 07-31-2023 SERUM CREATININE SERUM CREATININE [facility] Start: 07-19-2023 HEMOGLOBIN/HEMATOCRIT HEMOGLOBIN/HEMATOCRIT [facility] Start: 07-12-2023 ANNUAL PCP TEAM CHRONIC DISEASE VISIT ANNUAL PCP TEAM CHRONIC DISEASE VISIT [facility] Start: 07-03-2023 ANNUAL PCP TEAM CHRONIC DISEASE VISIT ANNUAL PCP TEAM CHRONIC DISEASE VISIT [facility] Start: 07-03-2023 Hepatitis B surface antibody level LDL CHOLESTEROL [facility] Start: 06-20-2023 HEMOGLOBIN/HEMATOCRIT HEMOGLOBIN/HEMATOCRIT [facility] Start: 06-20-2023 SERUM CREATININE SERUM CREATININE [facility] Start: 06-05-2023 ANNUAL PCP TEAM CHRONIC DISEASE VISIT ANNUAL PCP TEAM CHRONIC DISEASE VISIT [facility] Start: 05-29-2023 HEMOGLOBIN/HEMATOCRIT HEMOGLOBIN/HEMATOCRIT [facility] Start: 05-06-2023 ANNUAL PCP TEAM CHRONIC DISEASE VISIT ANNUAL PCP TEAM CHRONIC DISEASE VISIT [facility] Start: 04-23-2023 HEMOGLOBIN/HEMATOCRIT HEMOGLOBIN/HEMATOCRIT [facility] Start: 04-17-2023 ANNUAL PCP TEAM CHRONIC DISEASE VISIT ANNUAL PCP TEAM CHRONIC DISEASE VISIT [facility] Start: 04-14-2023 Advance Directive Discussion Advance Directive Discussion [facility] Start: 04-14-2023 Behavioral Health Screening Behavioral Health Screening [facility] Start: 04-14-2023 Depression Assessment Depression Assessment [facility] Start: 04-08-2023 COVID-19 Vaccine (4 - Moderna risk series) COVID-19 Vaccine (4 - Moderna risk series) [facility] Start: 04-08-2023 Covid-19 Vaccine ( season) Covid-19 Vaccine () [facility] Start: 03-18-2023 HEMOGLOBIN/HEMATOCRIT HEMOGLOBIN/HEMATOCRIT [facility] Start: 03-18-2023 SERUM CREATININE SERUM CREATININE [facility] Start: 02-24-2023 End: 12-24-2023 Ct thorax w/o contrast material CT CHEST WO IVCON Radiology Routine Renal cancer, right (HCC) Expected: 02/24/2023 (Approximate), Expires: 12/24/2023 [facility] Work Phone: Comment on above: Expected: 02/24/2023 (Approximate), Expi res: 12/24/2023 Start: 02-18-2023 HEMOGLOBIN/HEMATOCRIT HEMOGLOBIN/HEMATOCRIT [facility] Start: 01-23-2023 ANNUAL PCP TEAM CHRONIC DISEASE VISIT ANNUAL PCP TEAM CHRONIC DISEASE VISIT [facility] Start: 01-17-2023 HEMOGLOBIN/HEMATOCRIT HEMOGLOBIN/HEMATOCRIT [facility] Start: 12-13-2022 Covid-19 Vaccine () Covid-19 Vaccine () [facility] Start: 12-13-2022 HEMOGLOBIN/HEMATOCRIT HEMOGLOBIN/HEMATOCRIT [facility] Start: 12-13-2022 Influenza vaccination [facility] Start: 12-04-2022 End: 02-03-2023 CBC W Auto Differential panel - Blood CBC + DIFF Lab Routine Essential thrombocythemia (HCC) Expected: 12/04/2022 (Approximate), Expires: 02/03/2023 [facility] Work Phone: Comment on above: Expected: 12/04/2022 (Approximate), Expi res: 02/03/2023 Start: 12-03-2022 ANNUAL PCP TEAM CHRONIC DISEASE VISIT ANNUAL PCP TEAM CHRONIC DISEASE VISIT [facility] Start: 11-12-2022 HEMOGLOBIN/HEMATOCRIT HEMOGLOBIN/HEMATOCRIT [facility] Start: 11-12-2022 SERUM CREATININE SERUM CREATININE [facility] Start: 10-24-2022 End: 12-24-2022 CBC W Auto Differential panel - Blood CBC + DIFF Lab Routine Essential thrombocythemia (HCC) Expected: 10/24/2022, Expires: 12/24/2022 [facility] Work Phone: Comment on above: Expected: 10/24/2022, Expires: Start: 10-24-2022 End: 12-24-2022 TYPE + SCREEN TYPE + SCREEN Blood Bank Routine Essential thrombocythemia (HCC) Expected: 10/24/2022, Expires: 12/24/2022 [facility] Work Phone: Comment on above: Expected: 10/24/2022, Expires: 3 Start: 10-22-2022 ANNUAL PCP TEAM CHRONIC DISEASE VISIT ANNUAL PCP TEAM CHRONIC DISEASE VISIT [facility] Start: 10-22-2022 BP CONTROLLED (<130/80) BP CONTROLLED (<130/80) [facility] Start: 10-22-2022 HEMOGLOBIN/HEMATOCRIT HEMOGLOBIN/HEMATOCRIT [facility] Start: 10-16-2022 HEMOGLOBIN/HEMATOCRIT HEMOGLOBIN/HEMATOCRIT [facility] Start: 10-10-2022 End: 12-10-2022 CBC W Auto Differential panel - Blood CBC + DIFF Lab Routine Essential thrombocythemia (HCC) Expected: 10/10/2022, Expires: 12/10/2022 [facility] Work Phone: Comment on above: Expected: 10/10/2022, Expires: 3 Start: 10-02-2022 BP CONTROLLED (<130/80) BP CONTROLLED (<130/80) [facility] Start: 09-27-2022 HEMOGLOBIN/HEMATOCRIT HEMOGLOBIN/HEMATOCRIT [facility] Start: 09-21-2022 End: 11-21-2022 Comprehensive metabolic 2000 panel - Serum or Plasma COMP METABOLIC PANEL Lab Routine Essential thrombocythemia (HCC) Expected: 09/21/2022 (Approximate), Expires: 11/21/2022 [facility] Work Phone: Comment on above: Expected: 09/21/2022 (Approximate), Expi res: 11/21/2022 Start: 09-19-2022 BP CONTROLLED (<130/80) BP CONTROLLED (<130/80) [facility] Start: 09-12-2022 ANNUAL PCP TEAM CHRONIC DISEASE VISIT ANNUAL PCP TEAM CHRONIC DISEASE VISIT [facility] Start: 09-12-2022 BP CONTROLLED (<130/80) BP CONTROLLED (<130/80) [facility] Start: 09-11-2022 HEMOGLOBIN/HEMATOCRIT HEMOGLOBIN/HEMATOCRIT [facility] Start: 08-27-2022 End: 10-27-2022 TYPE + SCREEN [facility] Work Phone: Comment on above: Expected: 08/27/2022 (Approximate), Expi res: 10/27/2022 Start: 08-21-2022 Colonoscopy COLONOSCOPY [facility] Start: 08-21-2022 COLORECTAL CANCER SCREENING COLORECTAL CANCER SCREENING [facility] Start: 08-14-2022 HEMOGLOBIN/HEMATOCRIT HEMOGLOBIN/HEMATOCRIT [facility] Start: 08-12-2022 End: 10-12-2022 TYPE + SCREEN TYPE + SCREEN Blood Bank Routine Iron deficiency anemia due to chronic blood loss Expected: 08/12/2022 (Approximate), Expires: 10/12/2022 [facility] Work Phone: Comment on above: Expected: 08/12/2022 (Approximate), Expi res: 10/12/2022 Start: 07-25-2022 End: 09-24-2022 CBC W Auto Differential panel - Blood CBC + DIFF Lab Routine Iron deficiency anemia due to chronic blood loss Acute deep vein thrombosis (DVT) of popliteal vein of left lower extremity (HCC) Expected: 07/25/2022, Expires: 09/24/2022 [facility] Work Phone: Comment on above: Expected: 07/25/2022, Expires: 3 Start: 07-17-2022 ANNUAL PCP TEAM CHRONIC DISEASE VISIT ANNUAL PCP TEAM CHRONIC DISEASE VISIT [facility] Start: 07-17-2022 HEMOGLOBIN/HEMATOCRIT HEMOGLOBIN/HEMATOCRIT [facility] Start: 07-02-2022 End: 09-01-2022 Alpha 1 antitrypsin [Mass/volume] in Serum or Plasma [facility] Work Phone: Comment on above: Expected: 07/02/2022, Expires: 3 Start: 06-20-2022 BP CONTROLLED (<130/80) BP CONTROLLED (<130/80) [facility] Start: 06-19-2022 HEMOGLOBIN/HEMATOCRIT HEMOGLOBIN/HEMATOCRIT [facility] Start: 06-19-2022 SERUM CREATININE SERUM CREATININE [facility] Start: 05-28-2022 ANNUAL PCP TEAM CHRONIC DISEASE VISIT ANNUAL PCP TEAM CHRONIC DISEASE VISIT [facility] Start: 05-15-2022 FECAL OCCULT BLOOD FECAL OCCULT BLOOD [facility] Start: 05-15-2022 Screening for malignant neoplasm of colon Fecal Occult Blood [facility] Start: 05-13-2022 Diabetes mellitus screening Diabetes Screening [facility] Start: 04-30-2022 COVID-19 VACCINE (6 - Moderna risk series) COVID-19 VACCINE (6 - Moderna risk series) [facility] Start: 04-20-2022 DTaP/Tdap/Td Vaccines (2 - Td or Tdap) DTaP/Tdap/Td Vaccines (2 - Td or Tdap) [facility] Start: 04-20-2022 Tetanus vaccination TETANUS [facility] Start: 04-20-2022 Urine microalbumin profile DTaP,Tdap,Td Vaccine (2 - Td or Tdap) [facility] Start: 04-14-2022 ADVANCE DIRECTIVE DISCUSSION ADVANCE DIRECTIVE DISCUSSION [facility] Start: 04-14-2022 DEPRESSION ASSESSMENT DEPRESSION ASSESSMENT [facility] Start: 04-05-2022 Adult depression screening assessment DEPRESSION SCREENING [facility] Start: 02-28-2022 SHINGRIX VACCINE (2 of 3) SHINGRIX VACCINE (2 of 3) [facility] Comment on above: Postponed from 11/12/2015 (Declined at t his time) Start: 02-28-2022 Urine microalbumin profile DTAP,TDAP,TD (1 - Tdap) [facility] Comment on above: Postponed from 1972 (Declined at t his time) Start: 02-27-2022 PNEUMOVAX AGE 65 AND OVER WITH 5YR LOOKBACK (#1) PNEUMOVAX AGE 65 AND OVER WITH 5YR LOOKBACK (#1) [facility] Start: 12-13-2021 Influenza vaccination INFLUENZA (#1) [facility] Start: 11-23-2021 COVID-19 VACCINE (5 - Booster for Moderna series) COVID-19 VACCINE (5 - Booster for Moderna series) [facility] Start: 10-24-2021 End: 12-24-2021 TYPE + SCREEN TYPE + SCREEN Blood Bank Routine Iron deficiency anemia due to chronic blood loss Expected: 10/24/2021 (Approximate), Expires: 12/24/2021 [facility] Work Phone: Comment on above: Expected: 10/24/2021 (Approximate), Expi res: 12/24/2021 Start: 10-22-2021 End: 12-22-2021 CBC W Auto Differential panel - Blood [facility] Work Phone: Comment on above: Expected: 10/22/2021, Expires: 2 Start: 10-22-2021 End: 12-22-2021 Iron and Iron binding capacity panel - Serum or Plasma [facility] Work Phone: Comment on above: Expected: 10/22/2021, Expires: 2 Start: 10-16-2021 End: 12-16-2021 TYPE + SCREEN TYPE + SCREEN Blood Bank Routine Iron deficiency anemia due to chronic blood loss Expected: 10/16/2021 (Approximate), Expires: 12/16/2021 [facility] Work Phone: Comment on above: Expected: 10/16/2021 (Approximate), Expi res: 12/16/2021 Start: 10-12-2021 End: 12-12-2021 Prostate Specific Ag Free [Mass/volume] in Serum or Plasma PSA FREE Lab Routine Elevated PSA Expected: 10/12/2021, Expires: 12/12/2021 [facility] Work Phone: Comment on above: Expected: 10/12/2021, Expires: 2 Start: 10-02-2021 End: 12-02-2021 Lipid 1996 panel - Serum or Plasma LIPID PANEL BASIC Lab Routine Post PTCA Mixed hyperlipidemia Expected: 10/02/2021, Expires: 12/02/2021 [facility] Work Phone: Comment on above: Expected: 10/02/2021, Expires: 2 Start: 09-18-2021 COVID-19 VACCINE (5 - Booster for Moderna series) COVID-19 VACCINE (5 - Booster for Moderna series) [facility] Start: 09-15-2021 End: 11-15-2021 Prostate specific Ag [Mass/volume] in Serum or Plasma PSA/PROSTSPECAG DIAG Lab Routine Elevated prostate specific antigen (PSA) Expected: 09/15/2021, Expires: 11/15/2021 [facility] Work Phone: Comment on above: Expected: 09/15/2021, Expires: 2 Start: 09-06-2021 SHINGRIX VACCINE (2 of 2) SHINGRIX VACCINE (2 of 2) [facility] Start: 09-06-2021 SHINGRIX VACCINE (3 of 3) SHINGRIX VACCINE (3 of 3) [facility] Start: 08-24-2021 BP CONTROLLED (<130/80) BP CONTROLLED (<130/80) [facility] Start: 06-11-2021 COVID-19 VACCINE (4 - Booster for Moderna series) COVID-19 VACCINE (4 - Booster for Moderna series) [facility] Start: 04-14-2021 ADVANCE DIRECTIVE DISCUSSION ADVANCE DIRECTIVE DISCUSSION [facility] Start: 04-14-2021 DEPRESSION ASSESSMENT DEPRESSION ASSESSMENT [facility] Start: 02-27-2018 PNEUMOCOCCAL: 65+ (2 - PCV) PNEUMOCOCCAL: 65+ (2 - PCV) [facility] Start: 05-03-2014 Screening for malignant neoplasm of colon COLORECTAL CANCER SCREENING DISCUSSION [facility] Start: 2013 RSV Vaccine (1 - 1-dose 60+ series) RSV Vaccine (1 - 1-dose 60+ series) [facility] Start: 1998 COLOGUARD (FIT-DNA) COLOGUARD (FIT-DNA) [facility] Start: [address] COLONOGRAPHY [facility] Start: 1998 Screening for malignant neoplasm of colon [facility] Start: 1998 SIGMOIDOSCOPY SIGMOIDOSCOPY [facility] Start: 1993 Lipid panel LIPID SCREENING [facility] Start: 10-27-1983 Zoledronic acid therapy ALPHA-1 ANTITRYPSIN DEFICIENCY SCREENING [facility] Start: 1972 Urine microalbumin profile [facility] Start: 10-27-1971 Anxiety Screening Anxiety Screening [facility] Start: 10-27-1971 Depression Screening Depression Screening [facility] Start: 10-27-1971 Hepatitis C screening Hepatitis C Screening [facility] Start: 10-27-1971 SPIROMETRY SPIROMETRY [facility] Start: 1965 Depression Screening Depression Screening [facility] Start: 1953 Hepatitis C screening HEPATITIS C VIRUS SCREENING [facility] Start: 1953 Lipid panel Lipid Panel [facility] Start: 1953 Medicare Annual Wellness (AWV) Medicare Annual Wellness (AWV) [facility] Start: 1953 Medicare Annual Wellness Visit Medicare Annual Wellness Visit (AWV) [facility] Start: 1953 Screening for malignant neoplasm of colon [facility] End: 08-14-2022 CBC W Auto Differential panel - Blood CBC + DIFF Lab Routine CLL (chronic lymphocytic leukemia) (HCC) Once per month for 20 Occurrences starting 08/14/2021 until 08/14/2022 [facility] Work Phone: Comment on above: Once per month for 20 Occurrences starti ng 08/14/2021 until 08/14/2022 End: 03-22-2023 CBC W Auto Differential panel - Blood CBC + DIFF Lab Routine Essential thrombocythemia (HCC) Once per month for 20 Occurrences starting 03/22/2022 until 03/22/2023 [facility] Work Phone: Comment on above: Once per month for 20 Occurrences starti ng 03/22/2022 until 03/22/2023 End: 06-21-2023 CBC W Auto Differential panel - Blood CBC + DIFF Lab Routine Essential thrombocythemia (HCC) Once per month for 20 Occurrences starting 06/21/2022 until 06/21/2023 [facility] Work Phone: Comment on above: Once per month for 20 Occurrences starti ng 06/21/2022 until 06/21/2023 End: 08-02-2023 CBC W Auto Differential panel - Blood CBC + DIFF Lab Routine Essential thrombocythemia (HCC) Every other week for 10 Occurrences starting 08/02/2022 until 08/02/2023 [facility] Work Phone: Comment on above: Every other week for 10 Occurrences [facility] 08/02/2022 until 08/02/2023 End: 08-20-2023 CBC W Auto Differential panel - Blood CBC + DIFF Lab Routine Iron deficiency anemia due to chronic blood loss Every other week for 10 Occurrences starting 08/20/2022 until 08/20/2023 [facility] Work Phone: Comment on above: Every other week for 10 Occurrences phil cannon 08/20/2022 until 08/20/2023 Clostridioides difficile toxin genes [Presence] in Stool by MYA with probe detection C. DIFFICILE PCR Lab Routine Diarrhea, unspecified type Acute deep vein thrombosis (DVT) of left lower extremity, unspecified vein (HCC) 10/22/2021 3:[address] [facility] Work Phone: End: 08-08-2023 COLONOSCOPY DIAGNOSTIC COLONOSCOPY DIAGNOSTIC Endoscopy Routine Gastrointestinal hemorrhage, unspecified gastrointestinal hemorrhage type 1 Occurrences starting 08/07/2022 until 08/08/2023 [facility] Work Phone: Comment on above: 1 Occurrences starting 08/07/2022 until 08/08/2023 End: 08-20-2023 Comprehensive metabolic 2000 panel - Serum or Plasma COMP METABOLIC PANEL Lab Routine Iron deficiency anemia due to chronic blood loss Every other week for 10 Occurrences starting 08/20/2022 until 08/20/2023 [facility] Work Phone: Comment on above: Every other week for 10 Occurrences phil cannon 08/20/2022 until 08/20/2023 End: 08-01-2023 Dup-scan xtr veins unilateral/limited study US DVT LOWER LT Radiology Routine Deep vein thrombosis (DVT) of left lower extremity, unspecified chronicity, unspecified vein (HCC) Localized swelling, mass and lump, left upper limb 1 Occurrences starting 07/02/2022 until 08/01/2023 [facility] Work Phone: Comment on above: 1 Occurrences starting 07/02/2022 until 08/01/2023 ENTERIC BACTERIAL PANEL BY PCR ENTERIC BACTERIAL PANEL BY PCR Lab Routine Diarrhea, unspecified type 10/22/2021 3:[address] [facility] Work Phone: End: 08-08-2023 ENTEROSCOPY ENTEROSCOPY Endoscopy Routine Gastrointestinal hemorrhage, unspecified gastrointestinal hemorrhage type 1 Occurrences starting 08/07/2022 until 08/08/2023 [facility] Work Phone: Comment on above: 1 Occurrences starting 08/07/2022 until 08/08/2023 End: 08-14-2022 FERRITIN BLD FERRITIN BLD Lab Routine CLL (chronic lymphocytic leukemia) (HCC) Once per month for 20 Occurrences starting 08/14/2021 until 08/14/2022 [facility] Work Phone: Comment on above: Once per month for 20 Occurrences starti ng 08/14/2021 until 08/14/2022 Influenza virus A an d B RNA and SARS-CoV-2 (COVID-19) N gene panel - Respiratory specimen by MYA with probe detection COVID WITH FLUA+B, ROUTINE Microbiology Routine Chronic obstructive pulmonary disease with acute exacerbation (HCC) 07/02/2022 10:[address] [facility] Work Phone: End: 09-19-2022 IRON + TIBC IRON + TIBC Lab Routine Iron deficiency anemia due to chronic blood loss Every 3 months for 20 Occurrences starting 09/19/2021 until 09/19/2022 [facility] Work Phone: Comment on above: Every 3 months for 20 Occurrences starti ng 09/19/2021 until 09/19/2022 End: 11-20-2024 MYASTHENIA GRAVIS PANEL MYASTHENIA GRAVIS PANEL Lab Routine One Time for 1 Occurrences starting 11/20/2024 until 11/20/[address] [facility] Comment on above: One Time for 1 Occurrences starting 12/2024 until 11/20/2024 MYASTHENIA GRAVIS PANEL MYASTHENIA GRAVIS PANEL Lab Routine 11/20/2024 2:00 AM EDT [facility] OCCULT BLD EXAM-DIAG OCCULT BLD EXAM-DIAG Microbiology Routine Diarrhea, unspecified type Ordered: 10/22/2021 [facility] Work Phone: Comment on above: Ordered: 10/22/2021 End: 07-18-2022 Prostate specific Ag [Mass/volume] in Serum or Plasma PSA/PROSTSPECAG DIAG Lab Routine Elevated prostate specific antigen (PSA) 2 Occurrences starting 07/18/2021 until 07/18/2022 [facility] Work Phone: Comment on above: 2 Occurrences starting 07/18/2021 until 07/18/2022 End: 01-17-2023 Prostate specific Ag [Mass/volume] in Serum or Plasma PSA/PROSTSPECAG DIAG Lab Routine Elevated prostate specific antigen (PSA) Atypical small acinar proliferation of prostate Every 6 months for 2 Occurrences starting 01/17/2022 until 01/17/2023 [facility] Work Phone: Comment on above: Every 6 months for 2 Occurrences startin g 01/17/2022 until 01/17/2023 PT PLAN OF CARE CERTIFICATION PT PLAN OF CARE CERTIFICATION Procedures Routine Impaired functional mobility, balance, gait, and endurance Chronic pain of left knee Left hip pain Ordered: 07/09/2021 [facility] Work Phone: Comment on above: Ordered: 07/09/2021 PT PLAN OF CARE CERTIFICATION PT PLAN OF CARE CERTIFICATION Procedures Routine Impaired functional mobility, balance, gait, and endurance Chronic pain of left knee Left hip pain Ordered: 08/27/2021 [facility] Work Phone: Comment on above: Ordered: 08/27/2021 PT PLAN OF CARE CERTIFICATION PT PLAN OF CARE CERTIFICATION Procedures Routine Impaired functional mobility, balance, gait, and endurance Left hip pain Ordered: 10/09/2021 [facility] Work Phone: Comment on above: Ordered: 10/09/2021 PT PLAN OF CARE CERTIFICATION PT PLAN OF CARE CERTIFICATION Procedures Routine Physical deconditioning Ordered: 05/31/2022 [facility] Work Phone: Comment on above: Ordered: 05/31/2022 RED BLOOD CELLS, ADULT RED BLOOD CELLS, ADULT Blood Bank Routine Acute blood loss anemia Severe anemia Stage 3 chronic kidney disease, unspecified whether stage 3a or 3b CKD (HCC) Other iron deficiency anemia 08/27/2022 12:[address] [facility] Work Phone: RED BLOOD CELLS, ADULT RED BLOOD CELLS, ADULT Blood Bank Routine Stage 3 chronic kidney disease, unspecified whether stage 3a or 3b CKD (HCC) Acute blood loss anemia Severe anemia Other iron deficiency anemia 10/08/2022 12:[address] [facility] Work Phone: RSV B/O RSV B/O Lab Rout ine Chronic obstructive pulmonary disease with acute exacerbation (HCC) Ordered: 07/02/2022 [facility] Work Phone: Comment on above: Ordered: 07/02/2022 SARS-CoV-2 (COVID-19 ) RNA [Presence] in Respiratory specimen by MYA with probe detection 2019 CORONAVIRUS Microbiology Routine Malaise and fatigue Ordered: 11/12/2022 [facility] Work Phone: Comment on above: Ordered: 11/12/2022 End: 07-03-2023 Screening colonoscopy COLONOSCOPY SCREENING Endoscopy Routine History of colonic polyps 1 Occurrences starting 07/02/2022 until 07/03/2023 [facility] Work Phone: Comment on above: 1 Occurrences starting 07/02/2022 until 07/03/2023 End: 08-01-2023 SPIROMETRY - BASELINE AND POST DILATOR SPIROMETRY - BASELINE AND POST DILATOR PFT Routine Chronic obstructive pulmonary disease with acute exacerbation (HCC) 1 Occurrences starting 07/02/2022 until 08/01/2023 [facility] Work Phone: Comment on above: 1 Occurrences starting 07/02/2022 until 08/01/2023 SPIROMETRY - BASELIN E AND POST DILATOR SPIROMETRY - BASELINE AND POST DILATOR PFT Routine Chronic obstructive pulmonary disease with acute exacerbation (HCC) 07/18/2022 2:[address] [facility] Work Phone: End: 11-15-2023 US DVT LOWER BILATERAL US DVT LOWER BILATERAL Radiology Routine Leg edema 1 Occurrences starting 10/16/2022 until 11/15/2023 [facility] Work Phone: Comment on above: 1 Occurrences starting 10/16/2022 until 11/15/2023 End: 10-17-2022 US DVT LOWER BILATERAL [facility] Work Phone: Comment on above: 1 Occurrences starting 10/17/2022 until 10/17/2022 End: 08-10-2023 US DVT LOWER RIGHT US DVT LOWER RIGHT Radiology Routine Iron deficiency anemia due to chronic blood loss Acute deep vein thrombosis (DVT) of popliteal vein of left lower extremity (HCC) Right calf pain 1 Occurrences starting 07/11/2022 until 08/10/2023 [facility] Work Phone: Comment on above: 1 Occurrences starting 07/11/2022 until 08/10/2023 End: 07-18-2022 US DVT LOWER RIGHT [facility] Work Phone: Comment on above: 1 Occurrences starting 07/18/2022 until 07/18/2022 End: 08-10-2023 US EXTREMITY MASS/FLUID COLLECTION LEFT US EXTREMITY MASS/FLUID COLLECTION LEFT Radiology Routine Iron deficiency anemia due to chronic blood loss Acute deep vein thrombosis (DVT) of popliteal vein of left lower extremity (HCC) Right calf pain 1 Occurrences starting 07/11/2022 until 08/10/2023 [facility] Work Phone: Comment on above: 1 Occurrences starting 07/11/2022 until 08/10/2023 End: 07-18-2022 US EXTREMITY MASS/FLUID COLLECTION LEFT US EXTREMITY MASS/FLUID COLLECTION LEFT Radiology Routine Iron deficiency anemia due to chronic blood loss Acute deep vein thrombosis (DVT) of popliteal vein of left lower extremity (HCC) Right calf pain 1 Occurrences starting 07/18/2022 until 07/18/2022 [facility] Work Phone: Comment on above: 1 Occurrences starting 07/18/2022 until 07/18/2022 [facility] Immunizations Immunization Date Immunization Notes Care Provider [facility] 02-11-2023 Moderna COVID-19 vaccine, Fall 2022, 12 yeasrs and older (50mcg/0.5mL) Melinda Bradshaw MD Work Phone: [facility] Work Phone: 01-20-2023 RSV, 60 Years And Ol vickie (AREXVY) Melinda Bradshaw MD Work Phone: [facility] Work Phone: 01-10-2023 influenza, injectabl e, quadrivalent, contains preservative Melinda Bradshaw MD Work Phone: [facility] Work Phone: 01-10-2023 influenza virus vaccine, unspecified formulation Deysi Diop SURGICAL SCRUB TECHNOLOGIST - CYLINDER TESTER Work Phone: [facility] 03-15-2022 pneumococcal (PCV20) vaccine, 20 valent (PREVNAR 20) Annmarie Ronquillo PA-C Work Phone: [facility] Work Phone: 03-05-2022 Moderna COVID-19 vaccine, bivalent, blue cap/bee label *Check age/dose* Melinda Bradshaw MD Work Phone: [facility] Work Phone: 10-16-2021 zoster vaccine recombinant Ulises Ramos DO Work Phone: [facility] 07-24-2021 Pfizer Bee Cap SARS-CoV-2 Melinda Bradshaw MD Work Phone: [facility] Work Phone: 07-12-2021 zoster vaccine recombinant Loy Mcallister MD Work Phone: [facility] Work Phone: 05-22-2021 influenza, high-dose , quadrivalent vaccine (FLUZONE HIGH DOSE QUADRIVALENT) Sia Hodge PT Work Phone: [facility] 05-22-2021 influenza virus vaccine, unspecified formulation Marley Falk RD Work Phone: [facility] 07-19-2020 COVID-19 vaccine, fu ll dose (MODERNA) Sia Hodge PT Work Phone: [facility] 06-21-2020 COVID-19 vaccine, fu ll dose (MODERNA) Sia Hodge PT Work Phone: [facility] 01-19-2020 pneumococcal conjuga te vaccine, 13 valent Ulises Ramos DO Work Phone: [facility] 01-18-2020 influenza, high-dose , quadrivalent vaccine (FLUZONE HIGH DOSE QUADRIVALENT) Sia Hodge PT Work Phone: [facility] 01-18-2019 influenza, high dose seasonal, preservative-free Sia Hodge PT Work Phone: [facility] 01-20-2018 influenza, injectabl e, quadrivalent, preservative free Sia Hodge PT Work Phone: [facility] 02-27-2017 pneumococcal polysaccharide vaccine, 23 valent Sia Hodge PT Work Phone: [facility] 02-09-2017 Influenza, injectabl e, Madin Ifrah Canine Kidney, preservative free, quadrivalent Sia Hodge PT Work Phone: [facility] 01-31-2017 influenza, seasonal, injectable Sia Hodge PT Work Phone: [facility] 09-17-2015 zoster vaccine, live Sia Po tts PT Work Phone: [facility] 04-20-2012 influenza virus vaccine, unspecified formulation Melinda Bradshaw MD Work Phone: [facility] Work Phone: 04-20-2012 tetanus toxoid, redu myra diphtheria toxoid, and acellular pertussis vaccine, adsorbed Melinda Bradshaw MD Work Phone: [facility] Work Phone: Payers Date Payer Category Payer Self-pay 2022 Medicare [id number] 2020 Medicare MEDICARE SNF GEN QUENTIN [id number] 2020-Present [phone] [address] [place] [address] Medicare [id number] 2019 Unknown 2019 Unknown MMO MMO MEDICARE SUPPLEMENT [id number] 2019-Present [phone] [address] [place] [address] Indemnity [id number] 2018 Managed Care (unspecified) MEDICARE SUPPLEMENT [id number] 2018 Medicare MEDICARE MEDICAR E A AND B [id number] 2018-Present [phone] [address] [address] [place] [address] Medicare [id number] 2018 Medicare [id number]. [id number]. [id number] 1959 Medicare [id number] 1959 Unknown [id number] 1953 Unknown [id number] 2.16.840.1.362185.3.579.2. 356 1953 Unknown [id number] 2.16.840.1.983792.3.579.2. 1244 1953 Unknown [id number] 2.16.840.1.596174.3.579.2. 627 1953 Unknown [id number] 2.16.840.1.365848.3.579.2. 627 1953 Unknown [id number] 2.16.840.1.543046.3.579.2. 598 1953 Unknown [id number] 2.16.840.1.861613.3.579.2. 598 1953 Unknown [id number] 2.16.840.1.520222.3.579.2. 598 1953 Unknown [id number] 2.16.840.1.203754.3.579.2. 598 1953 Unknown [id number] 2.16.840.1.159856.3.579.2. 627 1953 Unknown [id number] 2.16.840.1.114778.3.579.2. 627 1953 Unknown [id number] 2.16.840.1.001661.3.579.2. 627 1953 Unknown [id number] 2.16.840.1.946916.3.579.2. 594 Unknown [id number] 2.16.840.1.501956.3.579.2. 462 Unknown [id number] 2.16.840.1.643391.3.579.2. 462 Unknown [id number] 2..840.1.463008.3.579.2. 462 Unknown [id number] 2.840.1.898727.3.579.2. 462 Unknown [id number] 2..840.1.303011.3.579.2. 462 Unknown [id number] 2.840.1.602147.3.579.2. 462 Unknown [id number] 2.840.1.002707.3.579.2. 462 Unknown [id number] 2.840.1.447866.3.579.2. 462 Unknown [id number] 2.840.1.382595.3.579.2. 462 Unknown [id number] 2.840.1.965600.3.579.2. 462 Unknown [id number] 2.840.1.740408.3.579.2. 462 Unknown [id number] 2.840.1.221335.3.579.2. 462 Unknown [id number] 2.840.1.985622.3.579.2. 462 Unknown [id number] 2.16840.1.985326.3.579.2. 462 Unknown [id number] 2.16.840.1.634040.3.579.2. 462 Unknown [id number] 2.16840.1.618954.3.579.2. 462 Unknown [id number] 2.16.840.1.755803.3.579.2. 462 Unknown [id number] 2.16840.1.781788.3.579.2. 462 Unknown [id number] 2.16.840.1.276713.3.579.2. 462 Unknown [id number] 2.16840.1.990859.3.579.2. 462 Unknown [id number] 2.16.840.1.693588.3.579.2. 462 Unknown [id number] 2.840.1.122158.3.579.2. 462 Unknown [id number] 2.840.1.210792.3.579.2. 462 Unknown [id number] 2.840.1.076364.3.579.2. 462 Unknown [id number] 2.840.1.451123.3.579.2. 462 Unknown [id number] 2.840.1.449563.3.579.2. 462 Unknown [id number] 2.840.1.086373.3.579.2. 462 Unknown [id number] 2.840.1.658199.3.579.2. 462 Unknown [id number] 2.840.1.228852.3.579.2. 462 Unknown [id number] 2.840.1.315805.3.579.2. 462 Unknown [id number] 2.840.1.080031.3.579.2. 462 Unknown [id number] 2.16840.1.680713.3.579.2. 462 Unknown [id number] 2.16840.1.402933.3.579.2. 462 Unknown [id number] 2.840.1.494500.3.579.2. 462 Unknown [id number] 2.16.840.1.791983.3.579.2. 462 Unknown [id number] 2.16.840.1.381753.3.579.2. 462 Unknown [id number] 2.16.840.1.530100.3.579.2. 462 Unknown [id number] 2.16.840.1.174663.3.579.2. 462 Unknown [id number] 2.16.840.1.077938.3.579.2. 462 Unknown [id number] 2.16.840.1.584364.3.579.2. 462 Unknown [id number] 2.840.1.295578.3.579.2. 462 Unknown [id number] 2..840.1.763237.3.579.2. 462 Unknown [id number] 2..840.1.330106.3.579.2. 462 Unknown [id number] 2.840.1.675963.3.579.2. 462 Unknown [id number] 2..840.1.639219.3.579.2. 462 Unknown [id number] 2..840.1.180213.3.579.2. 462 Unknown [id number] 2..840.1.742710.3.579.2. 462 Unknown [id number] 2..840.1.920250.3.579.2. 462 Unknown [id number] 2.16.840.1.012422.3.579.2. 462 Unknown [id number] 2.16.840.1.723414.3.579.2. 462 Unknown [id number] 2.16.840.1.857271.3.579.2. 462 Unknown [id number] 2.16.840.1.287298.3.579.2. 462 Unknown [id number] 2.16.840.1.323849.3.579.2. 462 Unknown [id number] 2.840.1.167822.3.579.2. 462 Unknown [id number] 2.840.1.274406.3.579.2. 462 Unknown [id number] 2.840.1.094971.3.579.2. 462 Unknown [id number] 2.840.1.461796.3.579.2. 462 Unknown [id number] 2.840.1.033940.3.579.2. 462 Unknown [id number] 2.840.1.061566.3.579.2. 462 Unknown [id number] 2.840.1.801058.3.579.2. 462 Unknown [id number] 2.840.1.037934.3.579.2. 462 Unknown [id number] 2.840.1.100192.3.579.2. 462 Unknown [id number] 2.840.1.794814.3.579.2. 462 Unknown [id number] 2.840.1.555636.3.579.2. 462 Unknown [id number] 2.840.1.242133.3.579.2. 462 Unknown [id number] 2.840.1.246436.3.579.2. 462 Unknown [id number] 2.840.1.800461.3.579.2. 462 Unknown [id number] 2.840.1.463573.3.579.2. 462 Unknown [id number] 2.840.1.149278.3.579.2. 462 Unknown [id number] 2.840.1.456542.3.579.2. 462 Unknown [id number] 2.840.1.504636.3.579.2. 462 Unknown [id number] 2.16.840.1.718494.3.579.2. 462 Unknown [id number] 2.16.840.1.435122.3.579.2. 462 Unknown [id number] 2.16.840.1.905472.3.579.2. 462 Unknown [id number] 2.16.840.1.260520.3.579.2. 462 Unknown [id number] 2.16.840.1.017633.3.579.2. 462 Unknown [id number] 2.16.840.1.101897.3.579.2. 462 Unknown [id number] 2.16840.1.556492.3.579.2. 462 Unknown [id number] 2.16.840.1.728173.3.579.2. 462 Unknown [id number] 2.16840.1.002629.3.579.2. 462 Unknown [id number] 2.16840.1.364595.3.579.2. 462 Unknown [id number] 2.16840.1.592000.3.579.2. 462 Unknown [id number] 2.16840.1.818072.3.579.2. 462 Unknown [id number] 2.16840.1.703937.3.579.2. 462 Social History Date Type Detail Facility Start: 12-22-2015 End: 12-03-2021 Tobacco smoking status NHIS Ex-smoker [facility] Start: 12-21-1980 End: 12-21-1990 History of tobacco use Current smoker [facility] Start: 12-21-1980 End: 12-21-1990 History of tobacco use Cigarette Smoker [facility] End: 12-21-1990 History of tobacco use Cigar Smoker [facility] Start: 12-22-2015 End: 12-03-2021 Tobacco use and exposure Smokeless tobacco non-user [facility] Start: 06-20-2021 End: 12-19-2022 Alcohol intake Current drinker of alcohol (finding) [facility] Start: 05-20-2021 End: 07-04-2022 History SDOH Alcohol Frequency 2 [facility] Start: 05-20-2021 End: 07-04-2022 History SDOH Alcohol Std Drinks 98 [facility] Start: 05-20-2021 End: 07-04-2022 History SDOH Alcohol Binge 1 [facility] Start: 01-17-2021 History SDOH Alcohol Comment very little [facility] Start: 05-20-2021 End: 07-04-2022 History SDOH Social Connections Phone 5 [facility] Start: 05-20-2021 End: 07-04-2022 History SDOH Social Connections Living 4 [facility] Start: 05-20-2021 History SDOH Physical Activity DPW 0 [facility] Start: 05-20-2021 End: 07-04-2022 History SDOH Stress 3 [facility] Start: 1955 Sex Assigned At Not on file [facility] Start: 06-26-2021 End: 02-20-2023 Exposure to SARS-CoV-2 (event) Not sure [facility] Start: 10-08-2021 End: 10-18-2021 Exposure to SARS-CoV-2 (event) Yes [facility] Start: 07-04-2022 End: 11-22-2024 History of Social function [facility] Start: 07-04-2022 End: 11-22-2024 Social connection and isolation panel [facility] How often do you att end yarsani or advent services? Patient refused [facility] Do you belong to any clubs or organizations such as yarsani groups, unions, fraternal or athletic groups, or school groups? No [facility] Are you now , , , , never or living with a partner? [facility] How often to you hav e a drink containing alcohol? Monthly or less [facility] How many standard dr inks containing alcohol do you have on a typical day? 3 or 4 [facility] How hard is it for y ou to pay for the very basics like food, housing, medical care, and heating Somewhat hard [facility] Do you feel stress - tense, restless, nervous, or anxious, or unable to sleep at night because your mind is troubled all the time - these days [OSQ] Only a little [facility] (I/We) worried louisa er (my/our) food would run out before (I/we) got money to buy more. DK or Refused [facility] Start: 02-20-2023 End: 11-20-2024 Tobacco smoking status NHIS Never smoked tobacco [facility] Work Phone: Start: 02-20-2023 Alcohol intake Ex-drinker (finding) [facility] Work Phone: Start: 12-19-2022 Tobacco smoking status Heavy tobacco smoker (finding) [facility] Start: 1955 Sex Assigned At Male [facility] Start: 05-05-2023 Gender identity Identifies as male gender (finding) [facility] Sexual Orientation [facility] Start: 12-19-2022 End: 10-29-2023 Sex Male (finding) [facility] Medical Equipment Procedure Code Equipment Code Equipment Original Text Equipment Identifier Dates Nail 11mm 400mm 125d Long Ti-15mo [id number] Cocr Intramedullary Green [id number] Start: 07-23-2020 5mm Ti Lck Scr W /[id number] Sdriv 50mm F/Im Nail-St [id number] Start: 07-23-2020 Screw Tfn-Advanc ed 10.35mm 3.5mm Bowen [id number] 90mm Bone Cannulated - [id number] Start: 07-23-2020 Stent-10/26/2018 [id number] Start: 2018 Femur [...] goals by 08/16/23 (describe interventions done by [facility]) Verbal instructions Comment on above: Formatting of [...] instructions Functional Status Date Assessment Result Facility 11-20-2024 Are you deaf, or do you have serious difficulty hearing Yes 11/20/2024 12:00 AM Ana Ames, MEHUL Yes [facility] 11-20-2024 Are you blind, or do you have serious difficulty seeing, even when wearing glasses No 11/20/2024 12:00 AM Ana Ames, MEHUL No [facility] 11-20-2024 Do you have serious difficulty walking or climbing stairs No 11/20/2024 12:00 AM Ana Ames, MEHUL No [facility] 11-20-2024 Do you have difficul ty dressing or bathing No 11/20/2024 12:00 AM Ana Ames, MEHUL No [facility] 11-20-2024 Because of a physica l, mental, or emotional condition, do you have difficulty doing errands alone such as visiting a physician's office or shopping No 11/20/2024 12:00 AM Ana Ames, MEHUL No [facility] 05-26-2024 Functional Status Up to chair [facility] 05-26-2024 Functional Status [facility] Functional Status Breakfast Percent 90 [facility] 05-26-2024 Functional Status Room check performed [facility] 05-26-2024 Functional Status Nurse Corbin zhang q2hrs Performed 7pm-7am [facility] 05-26-2024 Functional Status [facility] 05-26-2024 Functional Status [facility] 05-25-2024 Functional Status [facility] 05-25-2024 Functional Status [facility] 05-25-2024 Functional Status [facility] 05-25-2024 Functional Status [facility] 05-25-2024 Functional Status Max A [facility] 05-25-2024 Functional Status bilateral knee high applied/on [facility] 05-24-2024 [facility] Functional Status ice chips and sips take n [facility] 05-24-2024 Functional Status [facility] 05-24-2024 Functional Status [facility] 05-23-2024 Functional Status Linen Change Done [facility] 05-23-2024 [facility] Functional Status Sensory Deficits None A [facility] 05-03-2024 Functional Status Multilevel armando e, Other: he lives in the basement. [facility] 05-03-2024 Functional Status bilateral knee high applied/on [facility] 05-03-2024 Functional Status Done [facility] 05-03-20[facility] Functional Status [facility] 05-03-2024 Functional Status [facility] 05-03-2024 Functional Status [facility] 05-02-2024 Functional Status 7am-7pm [facility] 05-02-2024 Functional Status [facility] 05-02-2024 Functional Status [facility] 05-02-2024 Functional Status [facility] 05-02-2024 Functional Status [facility] 05-02-2024 Functional Status Sensory Deficits None A [facility] 05-01-2024 Functional Status Identified as high risk, Room located near nursing station, Door open, Room check performed [facility] 05-01-2024 Functional Status [facility] 05-01-2024 Functional Status [facility] 05-05-2023 Functional Status Room check performed [facility] 05-05-2023 Functional Status [facility] Mental Status Date Assessment Result Facility 11-20-2024 Because of a physica l, mental, or emotional condition, do you have serious difficulty concentrating, remembering, or making decisions Yes 11/20/2024 12:00 AM Ana Ames, MEHUL Yes [facility] 05-26-2024 Mental Status Oriented x 4 [facility] 05-25-2024 Mental Status [facility] 05-25-2024 Mental Status [facility] 05-24-2024 Mental Status [facility] 05-03-2024 Mental Status Oriented x 4 [facility] 05-02-2024 Mental Status [facility] 05-02-2024 Mental Status [facility] 05-01-2024 Mental Status Orientation Oriented x 4 [facility] 05-01-2024 Mental Status [facility] 05-05-2023 Mental Status Orientation Oriented x 4 [facility] 05-05-2023 Mental Status [facility] Clinical Notes 07-22-2020 to 11-22-2024 Nursing Notes - Lucero Carlson RN - 11/22/2024 2:19 PM EDTNursing Notes - Lucero Carlson RN - 11/22/2024 2:19 PM EDTNursing Notes - July Katz RN - 11/22/2024 10:57 AM EDTDischarge Instructions Note Date & Type Note Facility 11-22-2024 Nurse Note Pt alert and oriented. Removed peripheral IV. Pt received discharge paperwork. Pt received home meds from refrigerator. Pt to discharge home via private vehicle. [facility] 11-22-2024 Miscellaneous Notes Pt alert and oriented. Removed peripheral IV. Pt received discharge paperwork. Pt received home meds from refrigerator. Pt to discharge home via private vehicle. Summary: Requested Correspondence Completed Faxed discharge summary and ophthalmology notes to Dr. Ulises Guidry in [place], [place] using fax number . Fax confirmation received. Problem: Adult Inpatient Plan of Care Goal: Plan of Care Review Outcome: Progressing Goal: Patient-Specific Goal (Individualized) Outcome: Progressing Goal: Absence of Hospital-Acquired Illness or Injury Outcome: Progressing Goal: Optimal Comfort and Wellbeing Outcome: Progressing Goal: Readiness for Transition of Care Outcome: Progressing Problem: OT - Vision Goal: Visual Scanning ADL - Patient will employ use of visual compensatory strategies with no cues in 5/5 trials to increase participation and safety in ADLs. Outcome: Ongoing Problem: OT - Other Goal: Energy Conservation Task Recall - Patient will independently recall 3 energy conservation principles to increase functional activity tolerance during ADLs, IADLs, and functional mobility tasks. Outcome: Ongoing .On admission to [facility], from outside hospital ([facility]) a dual RN initial assessment of skin condition was performed by Ana Tapia RN and Ira Crawford RN. Skin Assessment: Skin not within defined limits. - Pressure Injury suspected: No - Wound(s) identified: No - Consult ordered: No - Photo taken and uploaded into notes in IHIS: Yes Tyler Score: 20 (For Tyler Score </= 18, implement STAND skin bundle) High-Risk Areas Checked Include: Behind ears, elbows, back, sacrum/coccyx, hips, ankles and heels Yes Pictures Taken of all Alterations in Skin Integrity: Redness, large bruising, open wounds, blisters, skin tears, etc. Yes LDA Added:No Ana Tapia RN documented in this encounter [facility] 11-22-2024 Nurse Note Summary: Requested Correspondence Completed Faxed discharge summary and ophthalmology notes to Dr. Ulises Guidry in [place], [place] using fax number . [facility] confirmation [facility] History of Presen t illness Narrative Care Management Discharge Note Case Management: 1. Patient medically stable for DC to home with family. 2. AVS completed and recommendations for requested follow-up in place for patient. 3. Primary nurse is aware of POC to DC . 4. Esol Teacher informed patient/family they will need to make the necessary appointments that are placed on the AVS by the primary team. 5. No further needs identified. Patient medically stable for discharge per physician/medical team. Patient/Food Chemist remain in agreement with the discharge plan. Faby Fuentes RN BSN [facility] Plant Security Guard Discharge Planning Assessment Is the patient able to participate in the assessment?: Yes Care Management Plan CM in room to speak with patient. Patient alert and oriented to name, place and time. No services or DME. Patient is independent. No needs noted. Initial Discharge Planning Expected Discharge Disposition: Home Transportation Available for Discharge: Private Vehicle, Family or Friend Anticipated DME: none Anticipated Services at Discharge: Outpatient follow up Patient Assessment Completed: Initial Legal Next of Kin Does the patient have a Guardian?: No Spouse: No Adult Child(lynsey), List All Adult Children: Yes Name and Contact information: Raine Ott [phone] Would you like to add additional adult children?: No Reviewed and Updated in Demographics? : Yes Advanced Care Planning Has the patient completed Advance Directives?: Not Completed Referral to Social Work for Advance Care Planning? : Patient Declines Medication Management Does the patient have prescription insurance coverage? : Yes Is the patient on Anticoagulation? : No [facility] [address] [place], [place] [id number] [phone] [address] Living Environment and Support System Is the patient from a facility or nursing home?: No Living Environment: House Patient Caregiving Responsibilities: Self Patient-identified caregiver/support network: Family Who does the patient identify as a teachable caregiver(s)?: Child(lynsey) - Independent Services Does the patient use a home health or hospice agency?: No Current with dialysis?: No Does the patient use any community programs or services?: No Does patient use DME? : none Does the patient use oxygen?: No Does patient use medical supplies? : none Anticipated Changes Related to Illness/Injury? : No Initial ADLs Prior to Arrival What is the patient's reported baseline physical functioning prior to this acute illness?: independent What is the patient's reported baseline cognitive functioning prior to this acute illness?: independent Is the patient's baseline functioning changed by this acute illness? : No Concerns with patient being able to care for themselves at home? : No Faby uFentes RN BSN [facility] [employer] Acute Physical Therapy Evaluation Prior Gross Functional Mobility: independent Current AM-PAC score(s): CURRENT AM-PAC Mobility Raw Score: 22 Based on the above AM-PAC score(s) and PT clinical judgment, patient is a good candidate for discharge to Home Barriers to discharge home: None Mobility equipment available at home: none used ADL equipment available at home: shower chair Equipment needed for discharge: none Current therapy frequency recommendation in acute: PT Therapy Frequency: no acute therapy warranted Precautions and Weightbearing Status: Existing Precautions/Restrictions: (pt with right eye patch) Lines/Tubes/Drains (Rehab Status): No critical lines at this time Patient Safety Communication Prior to Visit: Nursing Subjective: pt pleasant, agreeable to PT session. pt reports frustration with his hospital course. Pain: General Pain Documentation (Adult, OB, Peds) Presence of Pain: denies pain/discomfort Presence of Pain Score (Auto-calculated): 0 Home Setting Residence: House Lives With: children (adult) (daughter) Patient receives help from : none Second floor setup: walk in shower, bedroom (Pt lives in daughter's basement, has bed/ bath in basement) Number of stairs in home: flight to basement Mobility Equipment Available: none used ADL Equipment Available: shower chair Previous Level of Function Gross Functional Mobility: independent Assistive Device: none used Prior level ADL Overview: Independent with all ADLs Dominant Hand: Right Bed Mobility: independent Transfers: independent Stairs: independent Ambulation: independent with all needs Vocation: retired Objective/Observation: Vitals/Vitals Responses to Treatment: Vitals not assessed this session; no adverse event to warrant vitals assessment. O2 Device: room air Cognition Overall Cognitive Status: Within Functional Limits Arousal/Alertness: Appropriate responses to stimuli Orientation Level: Oriented X4 Following Commands: Follows all commands and directions without difficulty Vision Screen Currently wearing corrective lenses: No (has glasses, is not wearing right now) Vision History: history of light sensitivity Subjective Patient Complaints: Double vision Clinical Observations: observed lt eyelid closing frequently throughout session Visual Impairments Observed?: Yes Extraocular Movements : Both eyes full range of motion Ocular (Smooth) Pursuits - Descripton: Jerky, Full range of motion, Causes symptoms Ocular Saccades - Quality: Fair Ocular Saccades - Description: Causes symptoms, Overshooting, Undershooting Confrontation Visual Field - Right: Intact Confrontation Visual Field - Left: Intact Speech Speech: no gross deficits noted Successful Methods (Communication Strategies): verbal speech Hearing Hearing: hard of hearing Extremity Assessments: RUE Assessment RUE Assessment: Within Functional Limits LUE Assessment LUE Assessment: Within Functional Limits RLE Assessment RLE Assessment: Within Functional Limits LLE Assessment LLE Assessment: Within Functional Limits Sensation Overall Sensation: Intact Skin Integrity Skin Integrity Description: WFL Edema Edema: none noted Mobility Assessment: Supine to Sit Mobility [place] Level: Supine->Sit: modified independence Bed Features/Set-up: Supine->Sit: Head of bed elevated Balance: Sitting Balance Static Sitting-Level of Assistance: Independent Dynamic Sitting-Level of Assistance: Independent Standing Balance Static Standing-Level of Assistance: Independent Dynamic Standing-Level of Assistance: Supervision Standing-Balance Support: Gait belt Transfer Assessment: Sit to Stand Transfer [place] Level: Sit->Stand: independent Stand to Sit Transfer [place] Level: Stand->Sit: independent Gait/Functional Mobility: Gait Assessment [place] Level: Gait: supervision Assistive Device: Gait: gait belt Ambulation Distance (Feet): 200 Gait Deviations Identified: decreased donte, wide base of support Gait Skilled Rationale: verbal Skilled Intervention/Details - Gait: pt denies need for cane/WW at this time. Stairs: Stairs Assessment [place] Level: Stair Negotiation: supervision Assistive Device: Stair Negotiation: gait belt, left rail (ascending) Number of stairs: 12 Stairs Skilled Rationale: verbal, nonreciprocal pattern, reciprocal pattern Outcome Score(s): CURRENT [facility] Basic Mobility Inpatient Short Form Turning over in bed: 4 - No Assistance Moving from lying on back to sittin - No Assistance Moving to and from bed to chair: 4 - No Assistance Sitting/standing from chair: 4 - No Assistance Walk in hospital room: 3 - A Little Assistance Climbing 3-5 steps with a railin - A Little Assistance CURRENT [facility] Mobility Raw Score: 22 CURRENT [facility] Mobility Functional Limitation: 20.91% Impaired in Basic Mobility Interventions: Assessment & Plan: Patient was admitted for acute onset diplopia following RLE angiogram, presents with CN4 palsy and seen for therapy evaluation related to concerns for impaired functional mobility/assistive device needs/stair safety/safe discharge plan. Pt Supervision - Independent with all transfers/gait without device and stairs with railing at this time. pt limited by decreased endurance. PT reviewed importance of OOB activity/hallway gait at least 2-3 times/day with the pt to help improve his endurance. Pt displayed understanding and reports he will comply with this mobility program. Current clinical presentation is Stable - unchanging or predictable (Low). Patient Instruction/Education this session: Learners: Patient Education provided: Plan of care, Role of this discipline Teaching method: Verbal Education/Instruction Learner response: Applies knowledge Learning preferences: Auditory Learning considerations: No barriers/ready to learn Plan for next session: No acute care PT warranted Acute PT Goals Notes from 11/21/2024 11:10 PM through 11/22/2024 11:10 AM All below goals are written for this pt to improve his/her mobility by discharge. 1. Educate pt on importance of OOB activity/hallway gait at least 2-3 times/day and pt display understanding - met. PT treatment consisted of the following to progress towards the above goal(s): PT Evaluation and Treatment Time PT Evaluation (Low) Time Entry: 10 Evaluating Therapist: Melody Gu PT Additional Details: PT Co-Eval/Treatment Information Co-evaluation/co-treatment performed?: No simultaneous skilled care performed Evaluation Complexity Components History: Moderate (1-2 personal factors and/or comorbidities) Body Systems Review: Low (Addressing 1-2 elements) Clinical Presentation: Stable - unchanging or predictable (Low) Clinical Decision Making Complexity: Low Time In: 0835 Time Out: 0845 Total Visit Time: 10 minutes Total Treatment Time (skilled, billable minutes): 10 minutes PPE used during patient interaction: facemask, gloves Patient location at end of session: edge of bed, RN aware, lines intact Alarms on at end of session: none altered, RN aware Needs in reach. Upon discontinuation of Acute Care Physical Therapy Services or patient discharge from the hospital this note represents the current Physical Therapy Discharge Summary. [facility] Medicine Progress Note Patient: Adina David, : 1955, Impression / Plan Adina David is a 69 y.o. male with history of PAD s/p R endarterectomy, CLL, cecal/duodenal AVM, DVT s/p IVC filter, COPD, HTN, CKD3, cataract surgery. who presented with diplopia Diplopia Developed new diplopia after receiving fentanyl 8/6 for his angiogram with vascular surgery. He saw his securities broker who confirmed that his cataract lens was still in place. Ddx ocular myasthenia gravis, cranial nerve palsy, ophthalmic issue, less likely TIA/CVA CT head nonacute, CTA with bilateral carotid stenosis and 60% stenosis of right ICA. Discussed with [facility] who had concerns for possible ?myasthenia gravis, discussed here and currently waiting for MG panel to come back otherwise nothing to do inpatient Ophthalmology consulted MRI brain, however had one at [facility] that was negative for stroke (results in media tab now and images being pushed over) Continue aspirin, statin CKD3: Cr 1.99 and at baseline Monitor and renally dose meds Chronic anemia, hx of cecal and ascending colon AVM Hgb 10.8, no signs of GI bleeding, monitor and transfuse if <7 Continue home iron Chronic Pseudomonas infection: Follows with title processor Dr. Rios. Continue azithromycin and aerosolized tobramycin Paroxysmal AFib: Continue Xarelto for anticoagulation. Continue metoprolol for rate control PAD s/p right femoral extensive endarterectomy: Continue aspirin atorvastatin DVT s/p IVC filter: continue xarelto Fall and recent femur fracture s/p ORIF with yeimy and screw placement: Fall precautions, PT / OT Bilateral Carotid artery stenosis: Noted incidentally on CTA with High-grade stenosis of left ICA and 60% stenosis right ICA. Follow-up outpatient CLL: Continue hydroxyurea, stable per patient Hyperlipidemia: Continue evolocumab output, not taking statin Hypertension: Continue amlodipine, metoprolol COPD continue home inhalers Mood disorder: Continue escitalopram Insomnia: Continue zolpidem Complexity. Hypomagnesemia - Continue to monitor and replete. Wound Documentation Any conditions listed below are present on admission unless otherwise specified. . DVT prophylaxis with xarelto Anticipated Disposition: home Code status is Full Code Interval History / Subjective -frustrated about still being in the hospital without answer Objective Temp: [97.7 F (36.5 C)-98.7 F (37.1 C)] 97.7 F (36.5 C) Pulse (Heart Rate): [73-101] 92 Resp Rate: [16-20] 18 BP: (108-130)/(58-76) 127/76 O2 Sat (%): [92 %-99 %] 93 % Physical Exam Gen: A, A, NAD, lying in bed ENT: MMM Resp: CTA bilat, normal effort Cardio: RRR, normal S1, S2, No ADEEL GI: S/NT/ND Psych: Ox3, appropriate affect and cognition Data Review WBC/Hgb/Hct/Plts: 26.46/10.1/30.7/268 (11/21 545) Na/K+/Phos/Mg/Ca: 140/4.7/--/--/-- (11/21 545) Bun/Creat/Cl/CO2/Glucose: 38/1.92/108/22/88 (11/21 545) Acute Occupational Therapy Evaluation Prior Gross Functional Mobility: independent Current AM-PAC score(s): CURRENT AM-PAC Mobility Raw Score: 22 CURRENT AM-PAC Activity Raw Score: 21 CURRENT AM-PAC Cognitive Raw Score: 24 Based on the above AM-PAC score(s) and OT clinical judgment, discharge destination recommendation is: Home Mobility equipment available at home: none used ADL equipment available at home: shower chair Equipment recommendations for discharge: Current therapy frequency recommendation(s) in acute: 1 time a week Precautions and Weightbearing Status: OT Existing Precautions/Restrictions: no known precautions/restrictions Lines/Tubes/Drains (Rehab Status): No critical lines at this time Patient Safety Communication Prior to Visit: Nursing Subjective: Pt received supine and agreeable to tx. Pt reports I told the other hospital to make sure they send the CT scan and MRI with me, but they didn't. Pain: General Pain Documentation (Adult, OB, Peds) Presence of Pain: denies pain/discomfort Presence of Pain Score (Auto-calculated): 0 Home Setting Residence: House Lives With: children (adult) (daughter) Patient receives help from : none Second floor setup: walk in shower, bedroom (Pt lives in daughter's basement, has bed/ bath in basement) Number of stairs in home: flight to basement Mobility Equipment Available: none used ADL Equipment Available: shower chair Previous Level of Function Gross Functional Mobility: independent Assistive Device: none used Prior level ADL Overview: Independent with all ADLs Dominant Hand: Right Bed Mobility: independent Transfers: independent Stairs: independent Ambulation: independent with all needs Vocation: retired IADL History IADLs: independent Primary Language: Emir[place] Home Management Skills: independent Medication Management: independent Objective/Observation: Vitals/Vitals Responses to Treatment: Vitals not assessed this session; no adverse event to warrant vitals assessment. O2 Device: room air Vision Screen Currently wearing corrective lenses: No (has glasses, is not wearing right now) Vision History: history of light sensitivity Subjective Patient Complaints: Double vision Clinical Observations: observed lt eyelid closing frequently throughout session Visual Impairments Observed?: Yes Extraocular Movements : Both eyes full range of motion Ocular (Smooth) Pursuits - Descripton: Jerky, Full range of motion, Causes symptoms Ocular Saccades - Quality: Fair Ocular Saccades - Description: Causes symptoms, Overshooting, Undershooting Confrontation Visual Field - Right: Intact Confrontation Visual Field - Left: Intact Speech Speech: no gross deficits noted Successful Methods (Communication Strategies): verbal speech Hearing Hearing: hard of hearing, hearing aids (pt reports recently purchased hearing aids) Cognition Overall Cognitive Status: Within Functional Limits Arousal/Alertness: Appropriate responses to stimuli Orientation Level: Oriented X4 Following Commands: Follows all commands and directions without difficulty Safety Judgment: Good awareness of safety precautions Awareness of Errors: Good awareness of errors made Deficits: Fully aware of deficits Attention Span: Appears intact Memory: Appears intact Problem Solving: Able to problem solve independently ADLs: ADL Assessment: Assessed All ADLs ADL Anticipated Performance (ADLs not directly observed this session): Toileting, UE Dressing, Bathing Eating Assistance: Independent Grooming Assistance: Modified independent Bathing Assistance: Set up supervision UE Dressing Assistance: Independent LE Dressing Assistance: Supervision LE Dressing Location: edge of bed LE Dressing Deficit: Increased time to complete, Generalized weakness, Retrieval of items LE Dressing Skilled Rationale (Verbal/Tactile/Visual/Demonstrat ion): Setup, Cues for increased safety, Technique of activity, Compensatory techniques LE Dressing Intervention/Details: Pt doffed/ donned bilat non skid socks using figure four technique without overt LOB. Toilet Assistance: Supervision Extremity Assessments: Hand Physician Practice Market Manager Strength Hand Physician Practice Market Manager Strength Interpretation: Left WNL, Right WNL RUE Assessment RUE Assessment: Within Functional Limits LUE Assessment LUE Assessment: Within Functional Limits Balance: Sitting Balance Static Sitting-Level of Assistance: Independent Dynamic Sitting-Level of Assistance: Modified independent Skilled Rationale: Verbal cues, Tactile cues, Full extension to upright positioning/posture, Technique of activity, Cues for increased safety Sitting Balance Skilled Intervention/Details: Facilitated sitting balance on EOB without overt LOB. Standing Balance Static Standing-Level of Assistance: Independent Dynamic Standing-Level of Assistance: Modified independent, Supervision Skilled Rationale: Verbal cues Standing Balance Skilled Intervention/Details: Facilitated standing without overt LOB with functional ambulation around room Neuro: Sensation Overall Sensation: Intact Gross Coordination Gross Coordination: bilat UE intact Fine Motor Coordination Additional Documentation: Yes Fine Motor Coordination Left Hand Thumb/Finger Opposition Skills: normal performance Right Hand Thumb/Finger Opposition Skills: normal performance Left Hand, Manipulation of Objects: normal performance Right Hand, Manipulation of Objects: normal performance Skin and Edema: Edema Edema: none noted Mobility Assessment: Supine to Sit Mobility [place] Level: Supine->Sit: modified independence Bed Features/Set-up: Supine->Sit: Head of bed elevated, Use of bed rail Skilled Rationale: Verbal cues, Hand placement, Technique of activity, Cues for increased safety Transfer Assessment: Sit to Stand Transfer [place] Level: Sit->Stand: independent Skilled Rationale: Verbal cues Skilled Intervention/Details: Sit->Stand: x 2 from EOB Stand to Sit Transfer [place] Level: Stand->Sit: independent Skilled Rationale: Verbal cues Skilled Intervention/Details: Stand->Sit: x 2 to EOB Outcome Score(s): CURRENT [facility] Daily Activity Inpatient Short Form Putting on/Taking Off Lower Body Clothin - A Little Assistance Bathin - A Little Assistance Toiletin - A Little Assistance Putting on/Taking Off Upper Body Clothin - No Assistance Groomin - No Assistance Eatin - No Assistance CURRENT [facility] Activity Raw Score: 21 CURRENT [facility] Activity Functional Limitation/Modifier: 32.79% Currently Impaired in Daily Activity - CJ CURRENT [facility] Applied Cognitive Inpatient Short Form Follow 10-15 min presentation: 4 - Without difficulty/effort Understand familiar people during conversation: 4 - Without difficulty/effort Takes meds at appropriate time: 4 - Without difficulty/effort Remembers where things were placed: 4 - Without difficulty/effort Remembers list of 4-5 errands without writing it down: 4 - Without difficulty/effort Takes care of complicated tasks: 4 - Without difficulty/effort CURRENT [facility] Cognitive Raw Score: 24 CURRENT [facility] Cognitive Functional Limitation/Modifier: 0.00% Currently Impaired in Cognition - CH CURRENT [facility] Basic Mobility Inpatient Short Form Turning over in bed: 4 - No Assistance Moving from lying on back to sittin - No Assistance Moving to and from bed to chair: 4 - No Assistance Sitting/standing from chair: 4 - No Assistance Walk in hospital room: 3 - A Little Assistance Climbing 3-5 steps with a railin - A Little Assistance CURRENT -[facility] Mobility Raw Score: 22 CURRENT [facility] Mobility Functional Limitation: 20.91% Impaired in Basic Mobility Assessment & Plan: Patient was admitted for acute onset diplopia following RLE angiogram, presents with CN4 palsy and seen for therapy evaluation related to concerns for decreased balance, strength and functional cognition leading to a possible decline in self care status and basic mobility. Pt issued black occlusive eye patch to alleviate diplopia. Pt educated regarding option to put opaque tape onto one glasses lens to alleviate diplopia and allow for use of peripheral vision. Pt reports I don't think the tape on the glasses will work. Pt thankful for eye patch. Answered all OT related questions at this time. Exam findings include impairments in: balance, vision, endurance. These impairments contribute to occupational performance limitations including bathing, dressing, community integration, leisure integration, home management tasks, toileting. The following factors impact the plan of care: Past Medical History[1] Past Surgical History[2] Patient will benefit from skilled occupational therapy to address these impairments, occupational performance limitations, and participation restrictions. Patient's rehab potential is: excellent. Planned Therapy Interventions (OT Eval): ADL retraining, IADL retraining, cognitive training, functional activity tolerance Patient Instruction/Education this session: Learners: Patient Education provided: Plan of care, Role of this discipline, Discharge recommendations, Compensatory strategies Teaching method: Verbal Education/Instruction Learner response: Applies knowledge Learning preferences: Auditory Learning considerations: No barriers/ready to learn Plan for next session: vision Acute OT Goals Plan of Care by Yeny Hairston OT at 11/21/2024 10:55 AM Version 1 of 1 Problem: OT - Vision Goal: Visual Scanning ADL - Patient will employ use of visual compensatory strategies with no cues in 5/5 trials to increase participation and safety in ADLs. Outcome: Ongoing Problem: OT - Other Goal: Energy Conservation Task Recall - Patient will independently recall 3 energy conservation principles to increase functional activity tolerance during ADLs, IADLs, and functional mobility tasks. Outcome: Ongoing OT treatment consisted of the following to work and progress towards the above goal(s): OT Evaluation and Treatment Time OT Evaluation (Low) Time Entry: 26 Evaluating Therapist: Yeny Hairston OT Additional Details: OT Co-Eval/Treatment Information Co-evaluation/co-treatment performed?: No simultaneous skilled care performed OT Evaluation Complexity Occupational Profile and Client History: Moderate - expanded history Assessment of Occupational Performance: Low (1-3 performance deficits) Clinical Decision/Performance Deficits: Low (problem-focused assessments w/limited treatment options) Time In: 1055 Time Out: 1124 Total Visit Time: 29 minutes Total Treatment Time (skilled, billable minutes): 26 minutes PPE used during patient interaction: facemask, gloves Patient location at end of session: edge of bed, RN aware, lines intact Alarms on at end of session: RN aware, none altered Needs in reach. Upon discontinuation of Acute Care Occupational Therapy Services or patient discharge from the hospital this note represents the current Occupational Therapy Discharge Summary. [1] No past medical history on file. [2] No past surgical history on file. [facility] Medicine Progress Note Patient: Adina David, : 1955, Impression / Plan Adina David is a 69 y.o. male with history of PAD s/p R endarterectomy, CLL, cecal/duodenal AVM, DVT s/p IVC filter, COPD, HTN, CKD3, cataract surgery. who presented with diplopia Diplopia Developed new diplopia after receiving fentanyl 8/6 for his angiogram with vascular surgery. He saw his securities broker who confirmed that his cataract lens was still in place. Ddx ocular myasthenia gravis, cranial nerve palsy, ophthalmic issue, less likely TIA/CVA CT head nonacute, CTA with bilateral carotid stenosis and 60% stenosis of right ICA. Discussed with [facility] who had concerns for possible ?myasthenia gravis, discussed here and currently waiting for MG panel to come back otherwise nothing to do inpatient Ophthalmology consulted Continue aspirin, statin CKD3: Cr 1.99 and at baseline Monitor and renally dose meds Chronic anemia, hx of cecal and ascending colon AVM Hgb 10.8, no signs of GI bleeding, monitor and transfuse if <7 Continue home iron Chronic Pseudomonas infection: Follows with title processor Dr. Rios. Continue azithromycin and aerosolized tobramycin 3x weekly Paroxysmal AFib: Continue Xarelto for anticoagulation. Continue metoprolol for rate control PAD s/p right femoral extensive endarterectomy: Continue aspirin atorvastatin DVT s/p IVC filter: continue xarelto Fall and recent femur fracture s/p ORIF with yeimy and screw placement: Fall precautions, PT / OT Bilateral Carotid artery stenosis: Noted incidentally on CTA with High-grade stenosis of left ICA and 60% stenosis right ICA. Follow-up outpatient CLL: Continue hydroxyurea, stable per patient Hyperlipidemia: Continue statin, evolocumab output Hypertension: Continue amlodipine, metoprolol COPD continue home inhalers Mood disorder: Continue escitalopram Insomnia: Continue zolpidem Complexity. Hypomagnesemia - Continue to monitor and replete. Wound Documentation Any conditions listed below are present on admission unless otherwise specified. . DVT prophylaxis with xarelto Anticipated Disposition: home Code status is Full Code Interval History / Subjective -vision appears worse in right eye than left, otherwise no concerns at this time Objective Temp: [97.5 F (36.4 C)-97.9 F (36.6 C)] 97.6 F (36.4 C) Pulse (Heart Rate): [70-81] 81 Resp Rate: [16-18] 17 BP: (125-142)/(58-71) 126/58 O2 Sat (%): [92 %-98 %] 96 % Weight: [80.6 kg (177 lb 9.6 oz)] 80.6 kg (177 lb 9.6 oz) Physical Exam Gen: A, A, NAD, lying in bed ENT: MMM, intact visual confrontation, eyesight in left eye appears worse than right when reading at 2 feet Resp: CTA bilat, normal effort Cardio: RRR, normal S1, S2, No ADEEL GI: S/NT/ND Psych: Ox3, appropriate affect and cognition Data Review WBC/Hgb/Hct/Plts: 30.17/9.9/30.6/279 (11/20 158) Na/K+/Phos/Mg/Ca: 137/5.1/--/1.5/-- (11/20 199) Bun/Creat/Cl/CO2/Glucose: 40/2.09/106/20/104 (11/20 199) Ptt/Pt/Inr: 30.1/16.0/1.3 (11/20 199) documented in this encounter [facility] 11-22-2024 Hospital course Narrative Images from the original note were not included. Hospital Medicine Discharge Summary Patient: Adina David, : 1955, Admission Details Admit Date 11/19/2024 Discharge Date 11/22/2024 Inpatient Days 3 Primary Diagnoses Diplopia likely 2/2 loss of fusion Action Items Follow up with neuro-ophthalmology in 4-6 weeks (referral placed) Myasthenia gravis panel pending at time of discharge Summary of Hospitalization Dear Doctors, I recently had the opportunity to care for Adina David during his recent hospital stay at [facility]. As you may know, Adina David is a 69 y.o. male with history of PAD s/p R endarterectomy, CLL, cecal/duodenal AVM, DVT s/p IVC filter, COPD, HTN, CKD3, cataract surgery who presented with diplopia after an angiogram During his angiogram, shortly after he received fentanyl, patient experienced acute onset of diplopia. MRI brain was performed that did not show any sign of stroke. Tele neurology was consulted with question of myasthenia gravis so he was transferred to [facility]. Here MG panel was drawn and pending at time of discharge. Ophthalmology was consulted who initially recommended MRI brain w/wo, however based on his MRI at [facility] prior to coming in said this did not need to be repeated. Inflammatory markers were negative. Based on workup and their exam, concern for loss of fusion likely from medication, though still waiting on panel for myasthenia. Will follow up with neuro-ophtho outpatient in 4-6 weeks BMI: 26.3 Upon discharge the patient's code was Full Code Please see the remainder of this document for relevant data from this admission as well as the patient's discharge instructions and follow-up appointments. An electronic copy of the patient's records can be obtained via [facility] [email or web address] at [email or web address] It has been my pleasure participating in this patient's care. Please contact me with any questions or concerns regarding his hospital stay. The total time of discharge was 35 minutes. Sincerely, Castro Schaffer MD Division of Hospital Medicine Problem list reviewed at discharge. Relevant Data from this Admission Temp: [97.1 F (36.2 C)-98.2 F (36.8 C)] 98.2 F (36.8 C) Pulse (Heart Rate): [77-113] 113 Resp Rate: [16-24] 18 BP: (94-129)/(55-91) 120/61 O2 Sat (%): [91 %-96 %] 96 % Physical Exam Gen: Alert, Awake, NAD Eyes: EOMI, no icterus ENT: MMM Resp: CTA, normal respiratory effort Cardio: RRR, normal S1, S2, no M/R/G. No ADEEL. GI: S/NT/ND Skin: No jaundice or rash Psych: Ox3, appropriate affect and cognition Recent Labs 11/20/24 0200 11/21/24 0546 11/22/24 0158 WBC -- < > 25.75* HGB -- < > 9.6* PLATELET -- < > 276 SODIUM 137 < > 138 POTASSIUM 5.1* < > 4.8 CO2 20* < > 21 ANIONGAP 16 < > 15 BUN 40* < > 40* CREATSERUM 2.09* < > 2.02* MAGNESIUM 1.5* -- -- AST 16 -- -- ALT 8* -- -- ALKPHOS 65 -- -- BILITOTAL 0.4 -- -- BILIDIRECT 0.1 -- -- INR 1.3* -- -- PTT 30.1 -- -- < > = values in this interval not displayed. Patient Instructions No future appointments. No follow-up provider specified. Medication List for when you go home CONTINUE taking these medications Morning Afternoon Evening Bedtime As Needed amLODIPine 5 MG TABS Take 0.5 tablets by mouth daily. Commonly known as: NORVASC Last time this was given: 2.5 mg on November 22, 2024 9:20 AM 0.5 tablets Aspirin [address] tablet Take 1 tablet by mouth daily. Last time this was given: Ask your nurse or doctor 1 tablet Atorvastatin 40 MG TABS Take 1 tablet by mouth daily. Commonly known as: LIPITOR 1 tablet Azithromycin 250 MG TABS Take 1 tablet by mouth three times a week. Commonly known as: ZITHROMAX Take 1 tablet by mouth three times a week. budesonide 0.5 MG/2ML nebulizer suspension Inhale 2 mL 2 times daily. Commonly known as: PULMICORT Last time this was given: 0.5 mg on November 22, 2024 9:53 AM 2 mL 2 mL Escitalopram 10 MG TABS Take 1.5 tablets by mouth daily. Commonly known as: LEXAPRO Last time this was given: 15 mg on November 22, 2024 9:19 AM 1.5 tablets hydroxyurea 500 MG capsule Take 3 capsules by mouth daily. Except for sundays Commonly known as: HYDREA Last time this was given: 1,500 mg on November 22, 2024 9:21 AM 3 capsules Ipratropium-albuterol 0.5-2.5 (3) MG/3ML nebulizer solution Take 3 mL by nebulization every 6 hours as needed for Shortness of Breath, Cough or Breathing Treatment. Commonly known as: DUONEB 3 mL omeprazole [address] capsule Take 1 capsule by mouth daily. Commonly known as: PRILOSEC 1 capsule Repatha SureClick 140 MG/ML SOAJ injection Inject 1 mL under the skin every 14 days. Generic drug: Evolocumab Inject 1 mL under the skin every 14 days. Tobramycin 300 MG/5ML NEBU inhalation solution Take 5 mL by nebulization every 12 hours. Commonly known as: KATY Last time this was given: 300 mg on November 22, 2024 10:05 AM 5 mL 5 mL Xarelto 10 MG TABS Take 1 tablet by mouth daily. Last time this was given: 10 mg on November 22, 2024 9:19 AM Generic drug: Rivaroxaban 1 tablet zolpidem 10 MG TABS Take 1 tablet by mouth at bedtime. Commonly known as: AMBIEN Last time this was given: 10 mg on November 21, 2024 9:32 PM 1 tablet documented in this encounter [facility] 11-22-2024 Hospital Discharg e instructions Castro Schaffer MD - 11/22/2024 10:09 AM EDT Discharge instructions from your inpatient doctor, Castro Schaffer MD, and team You were admitted to the hospital for double vision While you were here, we performed blood work and reviewed imaging to see what the cause might be. Currently we think this is due to loss of fusion and would like you to see a neuro-securities broker After discharge, please do the following: Please follow up with neuro-ophthalmology, I would also recommend you follow up with your current securities broker Please review the first page of your after-visit summary for a detailed list of medication changes, follow-up instructions and scheduled appointments. Please note that not all appointments will be set up on discharge per case management policy. Please check your my chart if needed and follow up with your appointments if you do not receive a call. If you have any questions after your discharge, please call our office at [phone] or your floor and one of our nurses will call you back. Division of Hospital Medicine [phone] documented in this encounter [facility] 11-22-2024 Plan of care note Problem: Adult Inpatient Plan of Care Goal: Plan of Care Review Outcome: Progressing Goal: Patient-Specific Goal (Individualized) Outcome: Progressing Goal: Absence of Hospital-Acquired Illness or Injury Outcome: Progressing Goal: Optimal Comfort and Wellbeing Outcome: Progressing Goal: Readiness for Transition of Care Outcome: Progressing [facility] 11-21-2024 Plan of care note Problem: OT - Vision Goal: Visual Scanning ADL - Patient will employ use of visual compensatory strategies with no cues in 5/5 trials to increase participation and safety in ADLs. Outcome: Ongoing Problem: OT - Other Goal: Energy Conservation Task Recall - Patient will independently recall 3 energy conservation principles to increase functional activity tolerance during ADLs, IADLs, and functional mobility tasks. Outcome: Ongoing [facility] 11-20-2024 Consult note Associated Order (s): IP CONSULT TO OPHTHALMOLOGY Images from the original note were not included. OPHTHALMOLOGY CONSULT NOTE REASON FOR CONSULTATION: new diplopia 2d, appreciate diagnostic eval to help determine etiology. CTH/CTA and MRI brain neg for stroke ASSESSMENT AND PLAN Adina David is a 69 y.o. male with: Diplopia, binocular CN 4 palsy, right eye - Patient received fentanyl for an angiogram 11/19/2024 and developed diagonal diplopia immediately - VA J1+ OU, IOP WNL, no APD - Strabismus exam shows exotropia and hypertropia, with hypertropia worse with upgaze; worse in LEFT gaze and RIGHT head tilt - Patient does endorse new left sided mormonism pain around this time of diplopia - Ddx includes loss of fusion, brain infarct, GBS, MG, GCA, other inflammatory or autoimmune - Imaging: CT head nonacute, CTA with bilateral carotid stenosis and 60% stenosis of right ICA Recommendations: - Overall concern for ischemic event vs loss of fusion from fentanyl vs less likely MG or GCA - Please obtain MRI brain WWO, ESR/CRP, MG panel - Per primary team, OSH MRI normal, but unable to view. If images not able to be obtained, would repeat imaging. - We will continue to follow Patient was discussed with Dr. Rausch. Please do not hesitate to call with questions or concerns. Thank you for the opportunity to participate in this patient's care. Surendra Montez MD Ophthalmology Resident [facility] For urgent/emergent questions regarding this patient, please page Ophthalmology on-call on [employer]: Ophthalmology --> Consults 1st Year Resident HISTORY OF PRESENT ILLNESS Adina David is a 69 y.o. male with history of PAD s/p R endarterectomy, CLL, cecal/duodenal AVM, DVT s/p IVC filter, COPD, HTN, CKD3, who is admitted for new onset diplopia. Patient developed new diplopia after receiving fentanyl 11/17 for his angiogram with vascular surgery. He saw his securities broker who confirmed that his cataract lens was still in place. Patient says it happened almost immediately with the fentanyl. He says the double vision is diagonal and will fluctuate heavily throughout the day. It goes away when he closes one eye. He says he has developed a dull ache along the left side of his head near his mormonism since the episode, but he thinks it is more related to seeing double. Denies mormonism tenderness to palpation. Patient denies jaw claudication, tongue pain, scalp tenderness, episodes of transient vision loss, fever/chills, unintentional weight loss, shoulder pain, proximal muscle weakness. OCULAR REVIEW History: Cataract surgery ~1 mo ago Provider: Unknown. Last Dilated Exam: 11/18/2024 Current Ophthalmologic Drops/Medications: None. Ophthalmologic Family History: Unknown. PHYSICAL EXAM Base Eye Exam Visual Acuity (Juan Carlos Card) Right Left Near cc J1+ J1+ Tonometry (Tonopen, 10:48 AM) Right Left Pressure 19 17 Pupils Pupils Right PERRL Left PERRL Visual Morales Left Right Full Full Dilation Both eyes: 2.5% Phenylephrine, 1.0% Mydriacyl @ 9:00 AM Additional Tests Color Right Left Ishihara 02/22 02/22 Strabismus Exam 0 0 0 ET 3 0 0 0 RHT 1 ET 4 0 0 ET 4 0 0 ET 4 RHT 3 RHT 3 RHT 6 0 0 0 ET 4 0 0 0 RHT 6 Slit Lamp and Fundus Exam Slit Lamp Exam Right Left Lids/Lashes Normal Normal Conjunctiva/Sclera White and quiet White and quiet Cornea Clear Clear Anterior Chamber Deep and quiet Deep and quiet Iris Round and reactive Round and reactive Lens PCIOL, well positioned PCIOL, well positioned Fundus Exam Right Left Vitreous Normal Normal Disc Normal Normal C/D Ratio 0.2 0.2 Macula Few soft drusen inferotemporal Normal Vessels Normal Normal Periphery Normal Normal ATTENTION: PUPILS DILATED Patient's eyes were dilated at time noted in exam section above. Effects of these drops typically last 12-24 hours but may last longer. Pupillary dilation, poor pupillary reaction to light, blurred vision, and photosensitivity can be expected over this time. Brief Baum of Common Ophthalmology Abbreviations: AC: anterior chamber DFE: dilated fundus exam EOMs: extraocular movements HVF: Humphry Visual Morales IOP: intraocular pressure OCT: optical coherence tomography OD: right eye OS: left eye OU: both eyes RNFL: retinal nerve fiber layer VA: visual acuity VF: visual morales Cosigned by Yaima Rausch MD at 11/21/2024 10:08 AM EDT Associated attestation - Yaima Rausch MD - 11/21/2024 10:08 AM EDT While I did not have the opportunity to see this patient personally today, I reviewed chart, images and labs, discussed case with resident and agree with the plan as documented by Dr. Montez with the following addition/summary: -new onset biocular diplopia during vascular surgery with narcotic use. No other associate neurological focal deficit. Very small misalignment by bedside exam per documentation. Ok to get brain MRI to rule out small brainstem/cerebellar ischemic assault, more likely temporal fusion impaired. If MRI negative, monitor clinically no acute intervention from ophthalmology standpoint. 11/21/24 Yaima(September) MD Shalom, PhD Psychologist Educational Multiple sclerosis & neuroimmunology Neuro-ophthalmology Department of Neurology [address] [place], [place], [address] [facility] Work Phone: 11-20-2024 Consult note Associated Order (s): IP CONSULT TO OPHTHALMOLOGY Images from the original note were not included. OPHTHALMOLOGY CONSULT NOTE REASON FOR CONSULTATION: new diplopia 2d, appreciate diagnostic eval to help determine etiology. CTH/CTA and MRI brain neg for stroke ASSESSMENT AND PLAN Adina David is a 69 y.o. male with: Diplopia, binocular CN 4 palsy, right eye - Patient received fentanyl for an angiogram 11/19/2024 and developed diagonal diplopia immediately - VA J1+ OU, IOP WNL, no APD - Strabismus exam shows exotropia and hypertropia, with hypertropia worse with upgaze; worse in LEFT gaze and RIGHT head tilt - Patient does endorse new left sided mormonism pain around this time of diplopia - Ddx includes loss of fusion, brain infarct, GBS, MG, GCA, other inflammatory or autoimmune - Imaging: CT head nonacute, CTA with bilateral carotid stenosis and 60% stenosis of right ICA Recommendations: - Overall concern for ischemic event vs loss of fusion from fentanyl vs less likely MG or GCA - Please obtain MRI brain WWO, ESR/CRP, MG panel - Per primary team, OSH MRI normal, but unable to view. If images not able to be obtained, would repeat imaging. - We will continue to follow Patient was discussed with Dr. Rausch. Please do not hesitate to call with questions or concerns. Thank you for the opportunity to participate in this patient's care. Surendra Montez MD Ophthalmology Resident [facility] For urgent/emergent questions regarding this patient, please page Ophthalmology on-call on [employer]: Ophthalmology --> Consults 1st Year Resident HISTORY OF PRESENT ILLNESS Adina David is a 69 y.o. male with history of PAD s/p R endarterectomy, CLL, cecal/duodenal AVM, DVT s/p IVC filter, COPD, HTN, CKD3, who is admitted for new onset diplopia. Patient developed new diplopia after receiving fentanyl 11/17 for his angiogram with vascular surgery. He saw his securities broker who confirmed that his cataract lens was still in place. Patient says it happened almost immediately with the fentanyl. He says the double vision is diagonal and will fluctuate heavily throughout the day. It goes away when he closes one eye. He says he has developed a dull ache along the left side of his head near his mormonism since the episode, but he thinks it is more related to seeing double. Denies mormonism tenderness to palpation. Patient denies jaw claudication, tongue pain, scalp tenderness, episodes of transient vision loss, fever/chills, unintentional weight loss, shoulder pain, proximal muscle weakness. OCULAR REVIEW History: Cataract surgery ~1 mo ago Provider: Unknown. Last Dilated Exam: 11/18/2024 Current Ophthalmologic Drops/Medications: None. Ophthalmologic Family History: Unknown. PHYSICAL EXAM Base Eye Exam Visual Acuity (Juan Carlos Card) Right Left Near cc J1+ J1+ Tonometry (Tonopen, 10:48 AM) Right Left Pressure 19 17 Pupils Pupils Right PERRL Left PERRL Visual Morales Left Right Full Full Dilation Both eyes: 2.5% Phenylephrine, 1.0% Mydriacyl @ 9:00 AM Additional Tests Color Right Left Ishihara 02/22 02/22 Strabismus Exam 0 0 0 ET 3 0 0 0 RHT 1 ET 4 0 0 ET 4 0 0 ET 4 RHT 3 RHT 3 RHT 6 0 0 0 ET 4 0 0 0 RHT 6 Slit Lamp and Fundus Exam Slit Lamp Exam Right Left Lids/Lashes Normal Normal Conjunctiva/Sclera White and quiet White and quiet Cornea Clear Clear Anterior Chamber Deep and quiet Deep and quiet Iris Round and reactive Round and reactive Lens PCIOL, well positioned PCIOL, well positioned Fundus Exam Right Left Vitreous Normal Normal Disc Normal Normal C/D Ratio 0.2 0.2 Macula Few soft drusen inferotemporal Normal Vessels Normal Normal Periphery Normal Normal ATTENTION: PUPILS DILATED Patient's eyes were dilated at time noted in exam section above. Effects of these drops typically last 12-24 hours but may last longer. Pupillary dilation, poor pupillary reaction to light, blurred vision, and photosensitivity can be expected over this time. Brief Baum of Common Ophthalmology Abbreviations: AC: anterior chamber DFE: dilated fundus exam EOMs: extraocular movements HVF: Humphry Visual Morales IOP: intraocular pressure OCT: optical coherence tomography OD: right eye OS: left eye OU: both eyes RNFL: retinal nerve fiber layer VA: visual acuity VF: visual morales Cosigned by Yaima Rausch MD at 11/21/2024 10:08 AM EDT Associated attestation - Yaima Rausch MD - 11/21/2024 10:08 AM EDT While I did not have the opportunity to see this patient personally today, I reviewed chart, images and labs, discussed case with resident and agree with the plan as documented by Dr. Montez with the following addition/summary: -new onset biocular diplopia during vascular surgery with narcotic use. No other associate neurological focal deficit. Very small misalignment by bedside exam per documentation. Ok to get brain MRI to rule out small brainstem/cerebellar ischemic assault, more likely temporal fusion impaired. If MRI negative, monitor clinically no acute intervention from ophthalmology standpoint. 11/21/24 Yaima(September) MD Shalom, PhD Psychologist Educational Multiple sclerosis & neuroimmunology Neuro-ophthalmology Department of Neurology [address] [place], [place], [address] documented in this encounter [facility] 11-20-2024 Nurse Note .On admission to [facility], from outside hospital ([facility]) a dual RN initial assessment of skin condition was performed by Ana Tapia RN and Ira Crawford RN. Skin Assessment: Skin not within defined limits. - Pressure Injury suspected: No - Wound(s) identified: No - Consult ordered: No - Photo taken and uploaded into notes in IHIS: Yes Tyler Score: 20 (For Tyler Score High-Risk Areas Checked Include: Behind ears, elbows, back, sacrum/coccyx, hips, ankles and heels Yes Pictures Taken of all Alterations in Skin Integrity: Redness, large bruising, open wounds, blisters, skin tears, etc. Yes LDA Added:No [facility] History and physical note Hospital Medicine Admission History & Physical Patient: Adina David, : 1955, Date of face to face patient encounter: 11/20/2024 Impression / Plan Adina David is a 69 y.o. male with history of PAD s/p R endarterectomy, CLL, cecal/duodenal AVM, DVT s/p IVC filter, COPD, HTN, CKD3, cataract surgery. who presents with the following problems: Diplopia Developed new diplopia after receiving fentanyl 8/6 for his angiogram with vascular surgery. He saw his securities broker who confirmed that his cataract lens was still in place. Ddx ocular myasthenia gravis, cranial nerve palsy, ophthalmic issue, less likely TIA/CVA CT head nonacute, CTA with bilateral carotid stenosis and 60% stenosis of right ICA. Discussed with [facility] who had concerns for possible ?myasthenia gravis Neurology consulted Ophthalmology consulted Continue aspirin, statin CKD3: Cr 1.99 and at baseline Monitor and renally dose meds Chronic anemia, hx of cecal and ascending colon AVM Hgb 10.8, no signs of GI bleeding, monitor and transfuse if <7 Continue home iron Chronic Pseudomonas infection: Follows with title processor Dr. Rios. Continue azithromycin and aerosolized tobramycin 3x weekly Paroxysmal AFib: Continue Xarelto for anticoagulation. Continue metoprolol for rate control PAD s/p right femoral extensive endarterectomy: Continue aspirin atorvastatin DVT s/p IVC filter: continue xarelto Fall and recent femur fracture s/p ORIF with yeimy and screw placement: Fall precautions, PT / OT Bilateral Carotid artery stenosis: Noted incidentally on CTA with High-grade stenosis of left ICA and 60% stenosis right ICA. Follow-up outpatient CLL: Continue hydroxyurea, stable per patient Hyperlipidemia: Continue statin, evolocumab output Hypertension: Continue amlodipine, metoprolol COPD continue home inhalers Mood disorder: Continue escitalopram Insomnia: Continue zolpidem BMI: DVT prophylaxis with xarelto Anticipated Disposition: admit Code status is FULL Loraine Nelson MD Hospitalist Chief Complaint diplopia History of Presenting Illness Aidna David is a 69 y.o. male with history of PAD, CLL, cecal/duodenal AVM, DVT s/p IVC filter, COPD, HTN, CKD3, cataract surgery. Patient presents as a transfer from outside hospital for ophthalmology and neurology evaluation. He presents with diplopia of both eyes which started 8/6 after he underwent right lower extremity angiogram. States he started noticing double vision after receiving fentanyl. Occurs both at rest and with movement, has a mild left sided headache, no fevers or chills, nausea or vomiting, no vertigo, lightheadedness or dizziness. He saw his securities broker as well who confirmed that his lens implant for his cataract was still in place. Seen at [place] where CT head nonacute and CTA showed high-grade stenosis of the left internal carotid artery 60% of the origin of the right internal carotid. MRI brain was negative, showed paranasal sinus disease and nonspecific bilateral mastoid effusions . He was transferred to [facility] for further evaluation. Review of Systems Constitutional: No fever, chills, weight changes Eyes: +diplopia ENT: No ringing, loss of hearing +mild left sided headache Cardiovascular: No LE edema, leg pain with walking, PND, Orthopnea Respiratory: No cough, SOB Gastrointestinal: No abd pain, constipation, diarrhea Genitourinary: No dysuria, gross hematuria Integumentary: No rash Musculoskeletal: No joint deformity, joint pains Psychiatric: No depressed mood History No past medical history on file. No past surgical history on file. Social History he has no history on file for tobacco use, alcohol use, and drug use. Family History family history is not on file. Medications / Allergies None Not on File Objective Findings BP 142/71 (BP Location: Right arm, BP Position: Lying) Pulse 78 Temp 97.9 F (36.6 C) (Oral) Resp 16 SpO2 96% Physical Exam Gen: Alert, Awake, NAD Eyes: PERRLA, EOMI, no icterus ENT: MMM, trachea midline Resp: CTA & P, normal respiratory effort Cardio: RRR, normal S1, S2, no M/R/G. No ADEEL. GI: S/NT/ND, NABS MS: No joint effusions or erythema Skin: No jaundice or rash Neuro: Moves all ext spontaneously +diplopia Psych: Ox3, appropriate affect and cognition Data Review [facility] 11-19-2024 History and physical note Hospital Medicine Admission History & Physical Patient: Adina David, : 1955, Date of face to face patient encounter: 11/20/2024 Impression / Plan Adina David is a 69 y.o. male with history of PAD s/p R endarterectomy, CLL, cecal/duodenal AVM, DVT s/p IVC filter, COPD, HTN, CKD3, cataract surgery. who presents with the following problems: Diplopia Developed new diplopia after receiving fentanyl 8/6 for his angiogram with vascular surgery. He saw his securities broker who confirmed that his cataract lens was still in place. Ddx ocular myasthenia gravis, cranial nerve palsy, ophthalmic issue, less likely TIA/CVA CT head nonacute, CTA with bilateral carotid stenosis and 60% stenosis of right ICA. Discussed with [facility] who had concerns for possible ?myasthenia gravis Neurology consulted Ophthalmology consulted Continue aspirin, statin CKD3: Cr 1.99 and at baseline Monitor and renally dose meds Chronic anemia, hx of cecal and ascending colon AVM Hgb 10.8, no signs of GI bleeding, monitor and transfuse if <7 Continue home iron Chronic Pseudomonas infection: Follows with title processor Dr. Rios. Continue azithromycin and aerosolized tobramycin 3x weekly Paroxysmal AFib: Continue Xarelto for anticoagulation. Continue metoprolol for rate control PAD s/p right femoral extensive endarterectomy: Continue aspirin atorvastatin DVT s/p IVC filter: continue xarelto Fall and recent femur fracture s/p ORIF with yeimy and screw placement: Fall precautions, PT / OT Bilateral Carotid artery stenosis: Noted incidentally on CTA with High-grade stenosis of left ICA and 60% stenosis right ICA. Follow-up outpatient CLL: Continue hydroxyurea, stable per patient Hyperlipidemia: Continue statin, evolocumab output Hypertension: Continue amlodipine, metoprolol COPD continue home inhalers Mood disorder: Continue escitalopram Insomnia: Continue zolpidem BMI: DVT prophylaxis with xarelto Anticipated Disposition: admit Code status is FULL Loraine Nelson MD Hospitalist Chief Complaint diplopia History of Presenting Illness Adina David is a 69 y.o. male with history of PAD, CLL, cecal/duodenal AVM, DVT s/p IVC filter, COPD, HTN, CKD3, cataract surgery. Patient presents as a transfer from outside hospital for ophthalmology and neurology evaluation. He presents with diplopia of both eyes which started 8/6 after he underwent right lower extremity angiogram. States he started noticing double vision after receiving fentanyl. Occurs both at rest and with movement, has a mild left sided headache, no fevers or chills, nausea or vomiting, no vertigo, lightheadedness or dizziness. He saw his securities broker as well who confirmed that his lens implant for his cataract was still in place. Seen at [facility] where CT head nonacute and CTA showed high-grade stenosis of the left internal carotid artery 60% of the origin of the right internal carotid. MRI brain was negative, showed paranasal sinus disease and nonspecific bilateral mastoid effusions . He was transferred to [facility] for further evaluation. Review of Systems Constitutional: No fever, chills, weight changes Eyes: +diplopia ENT: No ringing, loss of hearing +mild left sided headache Cardiovascular: No LE edema, leg pain with walking, PND, Orthopnea Respiratory: No cough, SOB Gastrointestinal: No abd pain, constipation, diarrhea Genitourinary: No dysuria, gross hematuria Integumentary: No rash Musculoskeletal: No joint deformity, joint pains Psychiatric: No depressed mood History No past medical history on file. No past surgical history on file. Social History he has no history on file for tobacco use, alcohol use, and drug use. Family History family history is not on file. Medications / Allergies None Not on File Objective Findings BP 142/71 (BP Location: Right arm, BP Position: Lying) Pulse 78 Temp 97.9 F (36.6 C) (Oral) Resp 16 SpO2 96% Physical Exam Gen: Alert, Awake, NAD Eyes: PERRLA, EOMI, no icterus ENT: MMM, trachea midline Resp: CTA & P, normal respiratory effort Cardio: RRR, normal S1, S2, no M/R/G. No ADEEL. GI: S/NT/ND, NABS MS: No joint effusions or erythema Skin: No jaundice or rash Neuro: Moves all ext spontaneously +diplopia Psych: Ox3, appropriate affect and cognition Data Review documented in this encounter [facility] 11-19-2024 Note [facility] 07-07-2024 Note [facility] 05-26-2024 Note [facility] 05-26-2024 Hospital Discharg e instructions Patient [...] Follow these instructions at home: Medicines Take mfqr-bkq-zzrftwl and prescription medicines only as told by your health care provider. Ask your health care provider if the medicine prescribed to you: ?Requires you to avoid driving or using heavy machinery. ?Can cause constipation. You may need to take actions to prevent or treat constipation, such as: ?Drink enough fluid to keep your urine pale yellow. ?Take jtsr-wfi-ggrsvtn or prescription medicines. ?Eat foods that are [...] and water are not available, use hand nursing surgical services director. ?Change your dressing as told by your [...] have some pain, swelling, and tenderness. Take vggc-tbx-wurlmac and prescription medicines only as told by [...] 02/01/2019 Document Revised: 02/01/2019 Document Reviewed: 02/01/2019 [employer] Patient Education 2020 Vital Access. Follow Up Care 05/23/2024 09:51:10 With:PEEWEE OROZCO MD Address: [facility] [address] [place] [address]- When:1-2 days Comments:Please call the office to schedule a hospital follow up appointment. With:MATT RAMSEY DO Address: [address] [facility]/[place] [address]- [phone] When:Within 2 Week(s) Comments:Call office to verify/schedule appointment as soon as possible for post-op visit 2 weeks from discharge. [facility] 05-26-2024 Discharge summary Date of Service 05/26/2024 [...] tympanic membrane tube placement who presented to [facility] after experiencing a fall. Patient had recent [...] Physician - Ordered -- 05/23/24 13:50:00 EST, MATT RAMSEY DO, Routine, Right hip fracture Imaging Results [...] for sleep. Follow Up Follow Up with PEEWEE OROZCO MD When:Within 1-2 days Where:[facility] [facility] [address] [place] [id number]- Additional Information: Please call the office to schedule a hospital follow up appointment. Follow Up with MATT RAMSEY DO When:In 2 weeks Where:[address] [facility]/[place] [address]- [phone] Additional Information: Call office to verify/schedule appointment [...] follow-up within: 3-5 days, Results Notify to: PEEWEE OROZCO MD, 05/26/24 12:05:00 EST Discharge Studies [...] JONEL MATIAS MD on 05/26/2024 03:52 PM [facility] 05-26-2024 Orthopaedic surgery Progress note Date of [...] Diaper Count 1.00 Total Summary Total Intake 2026. Total Output 2100.00 Fluid Balance -73.00 Physical [...] mg capsule 1,500 mg 3 cap(s), Oral, Mon//Fri//Fri/Sat metoprolol succinate 100 mg ER tablet 100 [...] JHOAN OSPINA DO on 05/26/2024 06:42 AM [facility] 05-26-2024 Note Discharge Instructions Thank you for allowing [place] to assist you with your healthcare needs. The following is important discharge information regarding your hospital visit. Your Care Team PEEWEE OROZCO MD Your Diagnosis Intertrochanteric fracture of [...] ER. Follow Up Appointments Follow Up with PEEWEE OROZCO MD When:Within 1-2 days Where:[facility] [address] [place] [address]- Additional Information: Please call the office to schedule a hospital follow up appointment. Follow Up with MATT RAMSEY DO When:In 2 weeks Where:[address] [facility]/[place] [address]- [phone] Additional Information: Call office to verify/schedule appointment [...] follow-up within: 3-5 days, Results Notify to: PEEWEE OROZCO MD, 05/26/24 12:05:00 EST Discharge Radiology [...] follow-up within: 3-5 days, Results Notify to: PEEWEE OROZCO MD, 05/26/24 12:05:00 EST Transfer of [...] right hip Duration: 7 Days Pickup at [facility]/pharmacy #[id number] Unchanged albuterol (albuterol MDI (90 mcg/ inh) [...] for as needed for sleep Pharmacy Information [facility]/pharmacy #[id number]: [address], [place] [phone] Please take this list to your next doctor s visit. Bring all medications you take, including over the counter medications, herbals and other supplements with you to your doctor s visit. Patients and families are reminded to discard old lists and to update any records with all medication providers or retail pharmacies. Medication Leaflets acetaminophen and oxycodone (a SEET a [place] fen and OX i ZIGGY done) Endocet 10/325, Endocet 2.5/325, Endocet 5/325, [...] may report side effects to FDA at [phone]. What other drugs will affect acetaminophen and [...] affect acetaminophen and oxycodone, including prescription and ckue-nta-ifnhtyv medicines, vitamins, and herbal products. Not all [...] to ensure that the information provided by [employer]. ('[employer]') is accurate, up-to-date, and complete, but no guarantee is made to that effect. Drug information contained herein may be time sensitive. [employer] information has been compiled for use by healthcare practitioners and consumers in the [place] and therefore [employer] does not warrant that uses outside of the [place] are appropriate, unless specifically indicated otherwise. [employer]ples drug information does not endorse drugs, diagnose patients or recommend therapy. [employer] drug information is an informational resource designed [...] effective or appropriate for any given patient. [facility] does not assume any responsibility for any aspect of healthcare administered with the aid of information [facility] provides. The information contained herein is not intended to cover all possible uses, directions, precautions, warnings, drug interactions, allergic reactions, or adverse effects. If you have questions about the drugs you are taking, check with your doctor, nurse or pharmacist. Copyright 7659-4866 [facility] [employer]. Version: 22.01. Revision Date: 11/14/2022. Education Materials Intramedullary Nailing [...] Follow these instructions at home: Medicines Take klmj-mrb-kkwleuk and prescription medicines only as told by your health care provider. Ask your health care provider if the medicine prescribed to you: ? Requires you to avoid driving or using heavy machinery. ? Can cause constipation. You may need to take actions to prevent or treat constipation, such as: ? Drink enough fluid to keep your urine pale yellow. ? Take pszg-ouw-tcgqqbr or prescription medicines. ? Eat foods that [...] and water are not available, use hand nursing surgical services director. ? Change your dressing as told by [...] have some pain, swelling, and tenderness. Take fwpk-zvq-dcgafgr and prescription medicines only as told by [...] 02/01/2019 Document Revised: 02/01/2019 Document Reviewed: 02/01/2019 [employer] Patient Education 2020 Vital Access. Additional Information VACCINATE! IT SAVES LIVES! Members of the community who have not yet received the COVID-19 vaccine and would like to receive it can visit one of [facility] vaccine clinics. There are many vaccine clinic locations within the [facility]. For locations and available times, please visit [email or web address].coronavirus.[place].gov/. It is important to note that some COVID mobile vaccine clinics are held outdoors and may be canceled in rainy or stormy conditions. To learn more about pediatric vaccinations (ages 5-11), we invite you to visit the [facility] [facility] webpage. https://www.akTorqeedos.org/pa ges/5878-Dqwdx-Bmhkfeafgbp-Freque nyxd-Iljms-Bmikuhxet.html To learn more about the COVID-19 vaccine, we invite you to visit the CDC website for a list of frequently asked questions.https://www.cdc.gov/cor onavirus/2019-ncov/vaccines/faq.h tml [employer] Patient Portal Access Instructions: Stay connected with your healthcare team and access your personal medical information anytime with the [employer] Patient Portal. Please follow the directions below to create your [employer] account: 1.Access the email account you provided upon registration to the hospital/physician office.2.Look for an invitation email from [facility].3.Open the email and access the invitation link: Accept Invitation to [facility].4.Fill in the required morales to create your account. To access your account, visit [email or web address]. Click the blue button labeled Access Patient [...] you will allow to register on the [facility] Patient Portal for access to your information. You can also access the [facility] Patient Portal on the [place] [facility] domenic. Simply click on Patient Portal and then log into your account. If you would like to receive a full copy of your medical records, please contact the [facility] Medical Records Department by calling [phone], Friday through Friday between 8 a.m. and [...] Call your local pharmacy or go to http://bit.[employer]/6U2Jm6y to find one close to you.3.Make use of household items: Use cat litter or old coffee grounds to dispose medications if other options are not available. Mix your drugs with these household products, seal them in an airtight container and throw it into the garbage. Call [facility]: [phone] to be sure your drugs can be [...] aware that I should contact my doctor. Patient/Food Chemist Signature: Date/Time: Relationship to Patient: ____ Witness Name/Signature: Date/Time: [facility] 05-26-2024 Note Discharge Instructions Thank you for allowing [facility] to assist you with your healthcare needs. The following is important discharge information regarding your hospital visit. Your Care Team PEEWEE OROZCO MD Your Diagnosis Intertrochanteric fracture of [...] ER. Follow Up Appointments Follow Up with PEEWEE OROZCO MD When:Within 1-2 days Where:[facility] [address] [place] [address]- Additional Information: Please call the office to schedule a hospital follow up appointment. Follow Up with MATT RAMSEY DO When:In 2 weeks Where:[address] [facility]/[place] [address]- [phone] Additional Information: Call office to verify/schedule appointment [...] follow-up within: 3-5 days, Results Notify to: PEEWEE OROZCO MD, 05/26/24 12:05:00 EST Discharge Radiology [...] follow-up within: 3-5 days, Results Notify to: PEEWEE OROZCO MD, 05/26/24 12:05:00 EST Transfer of [...] right hip Duration: 7 Days Pickup at [facility]/pharmacy #[id number] Unchanged albuterol (albuterol MDI (90 mcg/ inh) [...] for as needed for sleep Pharmacy Information [facility]/pharmacy #[id number]: [address], [place] [phone] Please take this list to your next [...] to receive it can visit one of [facility] vaccine clinics. There are many vaccine clinic locations within the [facility]. For locations and available times, please visit https://gettheshot.coronavirus.[facility].gov/. It is important to note that some COVID mobile vaccine clinics are held outdoors and may be canceled in rainy or stormy conditions. To learn more about pediatric vaccinations (ages 5-11), we invite you to visit the [employer] webpage. https://www.fishfishme.org/pa ges/9567-Zzhgs-Dtxzqnufctq-Freque eoqj-Castt-Sbpxxffyv.html To learn more about the COVID-19 vaccine, we invite you to visit the CDC website for a list of frequently asked questions.https://www.cdc.gov/cor onavirus/2019-ncov/vaccines/faq.h tml [employer] Patient Portal Access Instructions: Stay connected with your healthcare team and access your personal medical information anytime with the [facility] Patient Portal. Please follow the directions below to create your [facility] account: 1.Access the email account you provided upon registration to the hospital/physician office.2.Look for an invitation email from [facility].3.Open the email and access the invitation link: Accept Invitation to [employer].4.Fill in the required morales to create your account. To access your account, visit [email or web address]. Click the blue button labeled Access Patient [...] you will allow to register on the [facility] Patient Portal for access to your information. You can also access the [facility] Patient Portal on the [place] [facility] domenic. Simply click on Patient Portal and then log into your account. If you would like to receive a full copy of your medical records, please contact the [facility] Medical Records Department by calling [phone], Friday through Friday between 8 a.m. and [...] Call your local pharmacy or go to http://[employer]/3E5Ul0i to find one close to you.3.Make use of household items: Use cat litter or old coffee grounds to dispose medications if other options are not available. Mix your drugs with these household products, seal them in an airtight container and throw it into the garbage. Call [facility]: [phone] to be sure your drugs can be [...] aware that I should contact my doctor. Patient/Food Chemist Signature: Date/Time: Relationship to Patient: ____ Witness Name/Signature: Date/Time: [facility] 05-26-2024 Orthopaedic surgery Progress note Date of [...] Diaper Count 1.00 Total Summary Total Intake 2026.00 Total Output 2100.00 Fluid Balance -73.00 Physical [...] JHOAN OSPINA DO on 05/26/2024 06:42 AM [facility] 05-25-2024 Note Date of Service 05/25/2024 Chief [...] mg capsule 1,500 mg 3 cap(s), Oral, Mon//Fri//Fri/Sat metoprolol succinate 100 mg ER tablet 100 [...] and WBC count. Outpatient follow-up with his sedimentationist Plan of care discussed with patient as [...] JONEL MATIAS MD on 05/25/2024 09:19 AM [facility] 05-25-2024 Orthopaedic surgery Progress note Date of [...] JHOAN OSPINA DO on 05/25/2024 05:59 AM [facility] 05-25-2024 Note Date of Service 05/25/2024 Chief [...] and WBC count. Outpatient follow-up with his sedimentationist Plan of care discussed with patient as [...] JONEL MATIAS MD on 05/25/2024 09:19 AM [facility] 05-25-2024 Note Reason for Consultation Admission From: Home Consult Skin Team re: Pressure Staging - Ordered -- 05/23/24 17:52:38 EST Skin Team Findings Vitals and Measurements T: 37.1 C (Axillary) TMIN: 36.4 C (Oral) TMAX: 37.1 C (Axillary) HR: 101 RR: 18 BP: 150/78 SpO2: 98% Pressure Area Details ------Pressure Area------ Sacrum - Pressure Area Description: [place] Sacrum - Pressure Area Drainage: Scant, Serous [...] RN, Skin Team on 05/25/2024 08:53 AM [facility] 05-25-2024 Orthopaedic surgery Progress note Date of [...] JHOAN OSPINA DO on 05/25/2024 05:59 AM [facility] 05-25-2024 Nurse Progress note Pt stated he does not want to be bothered from 12am-5am through the night. Educated on the importance of being turned while in bed to prevent skin break down and preventing wounds. Charge aware. Digitally Signed by Emilee Stokes LPN on 05/25/2024 12:24 AM [facility] 05-24-2024 Anesthesiology Consult note Patient: ADINA DAVID [...] АНДРЕЙ MOON MD on 05/24/2024 04:29 PM [facility] 05-24-2024 Pastoral care Progress note Pastoral Care [...] by Pantera Quintero on 05/24/2024 03:37 PM [facility] 05-24-2024 Note System generated consult for a documented pressure injury. The patient is off the unit for surgery. Plan for skin team to follow up another time. Digitally Signed by Brea Wilson RN, Skin Team on 05/24/2024 02:13 PM [facility] 05-24-2024 Note Exam Date Time Procedure Performing Provider Status 05/24/24 2:11 PM XR Fluoro 1-2 Hrs Tech Time Estrellita CHICAS DO; Auth (Verified) [id number] ORIGINAL EXAMINATION: FLUORO MD - > 1 [...] 05/24/2024 2:25:34 PM Ordering Provider: MATT RAMSEY [id number] Orthopaedic surgery Consult note Date of Service 05/23/2024 Reason for Consultation Right intertrochanteric femur fracture Referring Physician ED History of Present Illness Patient is a 68-year-old male with a medical history of nephrectomy for kidney cancer and, CKD stage III, CLL, A-fib on Xarelto, DVT/PE with presence of IVC filter who presents to [facility] after sustaining a ground-level fall on yesterday [...] denies any numbness or tingling about his rightlower extremity. Patient states that he had previous hip fracture surgery of the left hip at [facility] About 10 years ago. Review of Systems [...] 10.0, platelets 239 - Plan discussed with production painter attending Dr. Ramsey Procedure/Surgical History Nephrectomy Large [...] DE GUZMAN DO on 05/23/2024 02:39 PM [id number] Anesthesiology Consult note Patient: ADINA DAVID Age: [...] wheezing Hydrea: 1,500 mg, 3 cap(s), Oral, Fri//Fri//Fri/Sat Kefzol: 2 gram(s), 20 mL, 240 mL/hr, [...] mupirocin 2% Ointment 22 Gram(s) tube 1 dmoenic, Nostril, each, BID omeprazole [address] [...] History: History is unknown. Procedure history: Stent ([id number]). Comments: 12/19/2022 11:21 MEHUL Kevin coronary Large bowel ([id number]). Comments: 12/19/2022 11:20 MEHUL Kevin resection Nephrectomy ([id number]). Comments: 12/19/2022 11:20 MEHUL Kevin right PTCA - Percutaneous transluminal coronary angioplasty ([id number]). Social History: Social & Psychosocial Habits Alcohol 05/23/2024 Use: Past Substance Abuse 05/23/2024 Use: Current Type: Marijuana Tobacco 05/23/2024 Tobacco Use: 10 or more cigarettes (1/ Type: Cigarettes Physical Examination Vital Signs (last 24 hrs) Last Charted Temp Oral36.6 DegC (MAY 24 09:33) Heart Rate ApicalH 103 bpm (MAY 23 17:44) SBPH 145 mmHg (MAY 24 09:33) DBP76 mmHg (MAY 24 09:33) BMI26.62 (MAY 23 15:38) General: Alert and oriented. Airway: Mallampati classification: II (soft palate, fauces, uvula visible). Dentition Evaluation: Intact. Respiratory: Lungs are clear to auscultation, Respirations are non-labored. Cardiovascular: Normal rate, Regular rhythm. Heart Sounds: Normal. Neurologic: Alert, Oriented. Review / Management Results review: Labs (Last four charted values) WBC H 24.1(MAY 24)H 29.7(MAY 23)H 35.2(MAY 23) Hgb L 8.8(MAY 24)L 9.3(MAY 23)L 10.0(MAY 23) Hct L 25.9(MAY 24)L 28.3(MAY 23)L 30.3(MAY 23) Plt 202(MAY 10)212(MAY 23)239(MAY 09) Na 137(MAY 24)139(FEB 10)138(MAY 23)139(MAY 23) K 4.4(MAY 10)4.4(MAY 10)4.3(MAY 23)4.4(MAY 23) CO2 L 21(MAY 24)L 20(MAY 10)L 21(MAY 23)22(MAY 09) Cl 107(MAY 10)108(MAY 24)107(MAY 23)105(MAY 23) Cr 1.32(MAY 24)1.35(MAY 24)H 1.51(MAY 23)H 1.55(MAY 23) BUN H 23.0(MAY 24)H 23.0(MAY 24)H 33.0(MAY 23)H 35.0(MAY 23) Glucose 111(MAY 24)111(MAY 24)99(MAY 23)96(MAY 23) Mg 1.6(MAY 23) Phos 4.5(MAY 23) Ca 8.9(MAY 24)9.1(MAY 24)9.8(MAY 23)9.6(MAY 23) PT 13.2(MAY 23) INR 1.2(MAY 23) Total CK 47(MAY 23)63(MAY 23) . Documentation reviewed: Current records. Assessment and Plan [place] [employer] Anesthesiologists (ASA) physical status classification: [...] HOLDEN ALEJANDRO DO on 05/24/2024 11:31 AM [facility] [id number] Respiratory therapy Hospital Progress note Respiratory Therapy [...] Surgical Status : General surgery Eveline Pratt RTS - 05/24/2024 10:10 EST Chest X-Ray : Clear/none available/older than 3 days Eveline Pratt RTS - 05/24/2024 10:13 EST Respiratory Pattern (RT) : RR 10-20 BPM, Regular pattern Eveline Pratt RTS - 05/24/2024 10:10 EST Digitally Signed by Terence Eveline RTS on 05/24/2024 10:13 AM [facility] [id number] Orthopaedic surgery Consult note Date of Service 05/23/2024 Reason for Consultation Right intertrochanteric femur fracture Referring Physician ED History of Present Illness Patient is a 68-year-old male with a medical history of nephrectomy for kidney cancer and, CKD stage III, CLL, A-fib on Xarelto, DVT/PE with presence of IVC filter who presents to [facility] after sustaining a ground-level fall on yesterday [...] fracture surgery of the left hip at [facility] About 10 years ago. Review of [...] 10.0, platelets 239 - Plan discussed with production painter attending Dr. Ramsey Procedure/Surgical History Nephrectomy Large [...] DE GUZMAN DO on 05/23/2024 02:39 PM [facility] [id number] Note Date of Service 05/24/2024 Chief Complaint 68 years old male with past medical history significant for chronic lymphocytic leukemia, right upper lobe lung nodule status post biopsy in 2023 reportedly benign, nephrectomy and CKD stage III, COPD, hypertension, hyperlipidemia, coronary artery disease without angina, obstructive sleep apnea, GERD, DVT/PE with presence of IVC filter, A-fib on Xarelto who presented to [facility] after experiencing a fall. Patient had recent [...] JONEL MATIAS MD on 05/24/2024 08:10 AM [facility] [id number] Orthopaedic surgery Consult note Date of Service 05/23/2024 Reason for Consultation Right intertrochanteric femur fracture Referring Physician ED History of Present Illness Patient is a 68-year-old male with a medical history of nephrectomy for kidney cancer and, CKD stage III, CLL, A-fib on Xarelto, DVT/PE with presence of IVC filter who presents to [facility] after sustaining a ground-level fall on yesterday [...] fracture surgery of the left hip at [facility] About 10 years ago. Review of [...] 10.0, platelets 239 - Plan discussed with production painter attending Dr. Ramsey Procedure/Surgical History Nephrectomy Large [...] DE GUZMAN DO on 05/23/2024 02:39 PM [facility] [id number] History and physical note Date of Service [...] IVC filter, A-fib on Xarelto presented to [place] [facility] after he had a fall at [...] calcifications, particularly at the left SFA and PEOPLE MANAGER.Correlate with any history of claudication.6. Small fat- [...] right hip fracture Note was written using [employer] flight mechanic software. Some of the meaning of the words and sentences might have changed during flight mechanic, if there was ever some confusion about [...] REJI STEEN MD on 05/23/2024 07:46 PM [facility] [id number] Evaluation + Plan noteExtracted from: Title:History and [...] right hip fracture Note was written using [employer] flight mechanic software. Some of the meaning of the words and sentences might have changed during flight mechanic, if there was ever some confusion about the meaning of some sentences, please do not hesitate to contact me. [facility] 02-09-2025 Note* Exam Date Time Procedure Performing Provider Status 05/23/24 11:[address] Pelvis w/o Contrast OLIVIER CHICAS DO; Modified [id number] ADDENDUM ADDENDUM: Report should say intertrochanteric rather [...] calcifications, particularly at the left SFA and PEOPLE MANAGER. Large amount of rectal stool with distension [...] calcifications, particularly at the left SFA and PEOPLE MANAGER. Correlate with any history of claudication. 6. Small fat-containing left inguinal hernia. Interpreted by: Olivier Chicas DO Preliminary Report By: Olivier Chicas DO Electronically signed By Olivier Chicas DO Dictated Date: 05/23/2024 11:25:33 AM Prelim Date: 05/23/2024 11:30:00 AM Sign Date: 05/23/2024 11:30:00 AM Ordering Provider: VILMA MARTINEZ [facility] [id number] Note* Exam Date Time Procedure Performing Provider Status 05/23/24 11:18 AM XR Hip Right w/Pelvis 4 Views OLIVIER CHICAS DO; Modified [id number] ADDENDUM ADDENDUM: Report should say intertrochanteric rather [...] Date: 05/23/2024 11:25:20 AM Ordering Provider: VILMA [facility]02-09-2025 Note* Exam Date Time Procedure Performing Provider Status 05/23/24 11:[address] Spine Cervical w/o Contrast MAXI PALOMO DO; Auth (Verified) [id number] ORIGINAL EXAMINATION: CT OF THE CERVICAL SPINE [...] Sign Date: 05/23/2024 11:39:01 AM Ordering Provider: [facility]02-09-2025 Note* Exam Date Time Procedure Performing Provider Status 05/23/24 11:17 AM XR Chest 1 View MAXI PALOMO DO; [facility] (Verified) [id number] ORIGINAL EXAMINATION: ONE XRAY VIEW OF THE [...] Sign Date: 05/23/2024 11:28:54 AM Ordering Provider: [facility]02-09-2025 Note* Exam Date Time Procedure Performing Provider Status 05/23/24 11:[address] Head or Brain w/o Contrast OLIVIER CHICAS DO; Auth (Verified) [id number] ORIGINAL EXAMINATION: CT OF THE HEAD WITHOUT [...] 05/23/2024 11:24:05 AM Ordering Provider: VILMA MARTINEZ [facility] [id number] Note* Exam Date Time Procedure Performing Provider Status 05/23/24 10:14 AM EKG (ED) - CV VILMA MARTINEZ MD; Aut h (Verified) ECG Final Report SINUS RHYTHM LEFT ANTERIOR FASCICULAR BLOCK Electronic Signature: VILMA MARTINEZ MD 05/23/2024 11:42:59 [facility] [id number] Note. MICRO - Microbiology PROCEDURE: Culture Respiratory [...] Locations *1: This test was performed at: [address]01-21-2025 Note. MICRO - Microbiology PROCEDURE: Urine Culture [...] Locations *1: This test was performed at: [address], [address] [place], [place] [address]01-20-2025 Pastoral care Progress note Pastoral Care Note [...] by Pantera Quintero on 05/03/2024 02:39 PM [facility] CenterIzpjsgip07-69-3435 Hospital Discharge instructions Patient Education 05/03/2024 10:47:36 Community-Acquired Pneumonia, Adult, Yexn-qa-Fxpt Community-Acquired Pneumonia, Adult Pneumonia is an infection [...] Follow these instructions at home: Medicines Take mqiy-keq-axizndi and prescription medicines only as told by [...] cannot use soap and water, use hand nursing surgical services director. Contact a doctor if: You have a [...] 09/16/2008 Document Revised: 07/21/2019 Document Reviewed: 11/26/2018 [employer] Patient Education 2019 [employer]. Follow Up Care 05/01/2024 18:41:02 With:PEEWEE OROZCO MD Address: [facility] [id number] [facility] [address] [place] [address]- When:1-2 days Comments:Please call the office to schedule a hospital follow up appointment. With:JEYSON AGUIAR MD Address: [address] [place] [address] [address] [place] [address]- [phone] When:Within 3 Week(s) only if needed Comments:Lung doctor that saw you in the hospital [facility] 01-20-2025 Discharge summary Date of Service 05/03/24 [...] for nausea/vomiting. Follow Up Follow Up with PEEWEE OROZCO MD When:Within 1-2 days Where:[facility] [facility] [facility] [address] [place] [address]- Additional Information: Please call the office to schedule a hospital follow up appointment. Follow Up with JEYSON AGUIAR MD When:In 3 weeks , only if needed [facility] [facility] [address] [place] [address] [phone] Additional Information: Lung doctor that saw you [...] KRISTIN MAC MD on 05/03/2024 12:03 PM [facility] [id number] Note Discharge Instructions Thank you for allowing [place] to assist you with your healthcare needs. The following is importantdischarge information regarding your hospital visit. Your Care Team PEEWEE OROZCO MD What to do next Instructions From Your Doctor Take prednisone steroid and antibiotic cefdinir as prescribed. Follow up with all providers involved in your care. No other changes were made to your medication. Follow Up Appointments Follow Up with JEYSON AGUIAR MD When:In 3 weeks , only if needed [facility] [facility] [address] [place] [address]- [phone] Additional Information: Lung doctor that saw you in the hospital Follow Up with PEEWEE OROZCO MD When:Within 1-2 days Where:[facility] [address] [place] [address]- The Following Activity and Diet Have Been [...] Follow these instructions at home: Medicines Take ihzs-bst-cqumxti and prescription medicines only as told by [...] cannot use soap and water, use hand nursing surgical services director. Contact a doctor if: You have a [...] 09/16/2008 Document Revised: 07/21/2019 Document Reviewed: 11/26/2018 [employer] Patient Education 2020 [employer]. Additional Information VACCINATE! IT SAVES LIVES! Members of the community who have not yet received the COVID-19 vaccine and would like to receive it can visit one of [facility] vaccine clinics. There are many vaccine clinic locations within the [facility]. For locations and available times, please visit [email or web address].[email or web address] It is important to note that some COVID mobile vaccine clinics are held outdoors and may be canceled in rainy or stormy conditions. To learn more about pediatric vaccinations (ages 5-11), we invite you to visit the [facility] webpage. [email or web address].[email or web address].org/pages/[email or web address]-Ljvnxogysrg-Sipyeikupq-Kwzub-Emt stions.htmlTo learn more about the COVID-19 vaccine, we invite you to visit the CDC website for a list of frequently asked questions.https://www.cdc.gov/coronavirus/2019-ncov/vaccines/faq.html [place] [facility] Patient Portal Access Instructions: Stay connected with your healthcare team and access your personal medical information anytime with the [facility] Patient Portal. Please follow the directions below to create your [facility] account: 1.Access the email account you provided upon registration to the hospital/physician office.2.Look for an invitation email from [facility].3.Open the email and access the invitation link: AcceptInvitation to [place] [facility].4.Fill in the required morales to create your account. To access your account, visit [employer]. Click the blue button labeled Access Patient Portal and then log in with the username and password that you created in the steps above. You will be able to view your test results, lab results, a summary of your visits, upcoming appointments and more. There is also a convenient messaging option where you can send secure messages to your p Shortlistvider. In addition, you will have the ability to download any documents or summaries to your computer and/or send the information securely to a physician. Remember that your healthcare information is confidential, so carefully consider who you will allowto register on the [place] [facility] Patient Portal for access to your information. You can also access the [place] [facility] Patient Portal on the [employer] domenic. Simply click on Patient Portal and then log into your account. If you would like to receive a full copy of your medical records, please contact the [facility] Medical Records Department by calling [phone], Friday through Friday between 8 a.m. and [...] Call your local pharmacy or go to [email or web address] [email or web address] to find one close to you.3.Make use of household items: Use cat litter or old coffee grounds to dispose medications if other options arenot available. Mix your drugs with these household products, seal them in an airtight container andthrow it into the garbage. Call [facility]: [phone] to be sure your drugs can be [...] Signatures Patient Education Materials Community-Acquired Pneumonia, Adult, Egim-ni-Bass Medication Leaflets My discharge plan and instructions have been reviewed and explained to me and IFRANKIE TIM E understand my current condition and have read and understand these discharge instructions. I have received awritten copy of the plan/instructions. If I have questions, I am aware that I should contact my doctor. Patient/Food Chemist Signature: Date/Time: Relationship to Patient: Witness Name/Signature: Date/Time: [facility] [id number] Note. MICRO - Microbiology PROCEDURE: Blood Culture [...] Locations *1: This test was performed at: [address], [address] [place], [place] [address]-19-2025 Note. MICRO - Microbiology PROCEDURE: Blood Culture [...] Locations *1: This test was performed at: [address]01-19-2025 Evaluation + Plan noteExtracted from: Title:History and Physical Author:THERESA KENNEDY Date:05/02/24 Right lower lobe pneumonia Acute hypoxic respiratory failure COPD exacerbation Lung mass Leukocytosis in setting of pneumonia, CLL CIRA Status post nephrectomy Hypertension Hyperlipidemia CAD CKD Anemia [facility] for [facility] of multiple medical issues including [...] DVT prophylaxis: SCDs Patient is full code [facility] 01-19-2025 Note* Exam Date Time Procedure Performing Provider Status 05/02/24 1:[address] Thorax w/o Contrast PANTERA PHILLIPS MD; Auth (Verified) [id number] ORIGINAL HISTORY: Cough, nodules COMPARISON: 05 May [...] Date: 05/02/2024 1:27:50 PM Ordering Provider: JEYSON [facility]01-19-2025 Note Date of Service 05/02/24 [...] KRISTIN MAC MD on 05/02/2024 12:13 PM [facility] CenterTcruubga21-02-3722 Pulmonary Consult note Date of Service 05/02/2024 [...] artery disease status post stent placement at [facility] few years ago, and history of right nephrectomy due to cancer with chronic kidney disease resulting from that. The patient isvery knowledgeable about his past medical history. He gets most of his care at [place]. Review of Systems Otherwise, no GI or [...] BID Hydrea, 1500 mg= 3 cap(s), Oral, Mon//Fri//Fri/Sat magnesium oxide, 800 mg= 2 tab(s), Oral, [...] JEYSON AGUIAR MD on 05/02/2024 11:00 AM [facility] [id number] Respiratory therapy Hospital Progress note Respiratory Therapy Evaluation Entered On: 05/02/2024 7:24 EST Performed On: 05/02/2024 7:24 EST by Cherri Hurt RT Respiratory Therapy Evaluation Respiratory Evaluation Triage Score : (6-10) Freq: TIDRT & Albuterol Q2hRT prn RT Assessment [Frequency/Schedule] : No changes required SavageCherri kulkarni ZAFAR RT - 05/02/2024 7:28 EST Surgical Status [...] Interview completed Pulmonary Status : Current smoker SavageCherri kulkarni ZAFAR RT - 05/02/2024 7:26 EST Digitally Signed by Cherri Hurt RT on 05/02/2024 07:28 AM [facility] [id number] Note. MICRO - Microbiology PROCEDURE: Legionella Urine [...] Locations *1: This test was performed at: [facility], [address] [place] [address], [address] , [facility]01-19-2025 Note. MICRO - Microbiology PROCEDURE: Streptococcus Pneumoniae [...] Locations *1: This test was performed at: [facility], [address] [place] [address], [facility] , [facility]01-19-2025 Note* Exam Date Time Procedure Performing Provider Status 05/02/24 5:19 AM Electrocardiogram - EKG - CV YASHIRA FORD MD; Auth (Verified) ECG Final Report Sinus rhythm Left anterior fascicular block Consider anterior infarct Electronic Signature: YASHIRA FORD MD 05/02/2024 20:37:46 [facility] [id number] Respiratory therapy Hospital Progress note Respiratory Therapy [...] Albuterol Q2hRT PRN per protocol Raine Tinajero INSTRUCTOR PAINTING - 05/02/2024 2:56 EST Pulmonary Status : [...] Therapy Evaluation Score : 8 Raine Tinajero INSTRUCTOR PAINTING - 05/02/2024 2:53 EST Digitally Signed by Raine Tinajero RRT on 05/02/2024 02:53 AM Digitally Signed by Raine Tinajero RRT on 05/02/2024 02:56 AM [facility] CenterRkwvivxb67-97-2388 History and physical note Date of Service [...] shortness of breath afterwards. Came to the [place] ED for further evaluation. It should be [...] THERESA KENNEDY DO on 05/02/2024 02:48 AM [facility] [id number] Note* Exam Date Time Procedure Performing Provider Status 05/01/24 2:56 PM XR Chest 1 View PARRIS MAE MD; Auth (Verified) [id number] ORIGINAL EXAMINATION: ONE XRAY VIEW OF THE [...] 05/01/2024 3:07:49 PM Ordering Provider: NATASHA BERRY [facility]01-18-2025 Evaluation + Plan note Diagnostic Tests Pending * Culture Respiratory with Gram Stain 05/01/24 * Urine Culture 05/01/24 [facility] 12-07-2024 [facility]11-05-2024 [facility]10-25-2024 [facility] 02-06-2024 [facility]10-22-2024 [facility]09-19-2024 History of Present illness Narrative* Heaven Shelley PTA - 01/01/2024 10:21 AM EDT Episode Visit [...] with review of activity management 2: Bridging x 2 3: Hooklying june 4: SL [...] 1020 Heaven Shelley PTA documented in this encounterPromedica [facility]09-11-20[facility] History of Present illness Narrative* Андрей [...] -score by a minimum of 5 points. [place] in home exercise program. Patient will demonstrate [...] Patient to be seen for Therapeutic exercise (92395), Neuromuscular re-education (64443), Therapeutic activities (13815), Gait Training (18233), Patient/Family/Caregiver Education PLAN FOR NEXT VISIT: Strength, Balance SUBJECTIVE: . Sold house and will likely be moving to [place] in 1 month. Compliant with HEP. Functional [...] - 2x4 A/P static stand 4: Quadruped Alt/Ajo UE/LE Skilled Intervention: Skilled judgment used to assess appropriate program for balance and coordination activity. Billing Therapeutic Exercise Treatment Minutes: 25 Neuromuscular Re-Education Treatment Minutes: 15 Skilled Treatment Time Minutes (timed and untimed codes): 40 Total Session Time (minutes): 40 Session Start Time : 1235 Session Stop Time : 1315 Андрей Mon, PT documented in this encounterPromedica Flower Hospital08-23-2024 NoteHNO ID: [id number] Author: WILTON PALMA RN Service: ? Author Type: Registered Nurse Type: Progress Notes Filed: 12/05/2023 13:42 Note Text: CDM Telephonic Outreach Provider Action/FYI Contacted for: Routine Telephonic Outreach Contact made with patient: No, unable to leave message. Wilton Palma RN December 05, 2023 1:36 [facility]08-23-2024 History of Present illness Narrative* Wilton Palma RN - 12/05/2023 1:36 PM EDT [facility] Telephonic Outreach Provider Action/FYI Contacted for: Routine Telephonic Outreach Contact made with patient: No, unable to leave message. Wilton Palma RN December 05, 2023 1:36 PM * Wilton Palma RN - 12/04/2023 12:00 PM EDT [facility] Telephonic Outreach Provider Action/FYI 11/03/23-11/15/23 [facility] Contacted for: Routine Telephonic Outreach Contact made with patient: No, unable to leave message. Will reattempt call Wilton Palma RN December 04, 2023 12:15 PM documented in this encounterPromedica Flower Hospital08-22-2024 NoteHNO ID: [id number] Author: WILTON PALMA RN Service: ? Author Type: Registered Nurse Type: Progress Notes Filed: 12/05/2023 13:42 Note Text: [facility] Telephonic Outreach Provider Action/FYI 11/03/23-11/15/23 [facility] Contacted for: Routine Telephonic Outreach Contact made with patient: No, unable to leave message. Will reattempt call Wilton Palma RN December 04, 2023 12:15 [facility]08-22-2024 NotePatient Outreach ([facility]) ADINA DAVID ([id number]) 1955 [place] Date Time Provider Department 12/04/23 WILTON PALMA [facility] During your visit today, we recorded the following information about you: Wilton Palma RN 12/05/2023 1:42 PM Signed [facility] Telephonic Outreach Provider Action/FYI 11/03/23-11/15/23 [facility] Contacted for: Routine Telephonic Outreach Contact made with patient: No, unable to leave message. Will reattempt call Wilton Palma RN December 04, 2023 12:15 PM Wilton Palma RN 12/05/2023 1:42 PM Signed [facility] Telephonic Outreach Provider Action/FYI Contacted for: Routine [...] 1 DOSE SUBCUTANEOUSLY ONCE EVERY MONTH - tcuxjdysehi-ddjgttetg-sxhcnfgo (TRELEGY ELLIPTA) 100-62.5-25 mcg inhalation powder Inhale [...] unspecified chronicity, uns*12/01/2022 Coronary artery disease involving turtle mountain falcon*12/02/2022 Other emphysema (HCC) [J43.8] 12/02/2022 Chronic [...] 12/13/2022 Encounter Status:Closed by WILTON PALMA on 12/05/23[facility] History of Present illness Narrative* Андрей Mon, PT - 11/20/2023 6:29 PM EDT Program_ID:[id number] Access Code: [email or web address] URL: [email or web address] Date: 11-20-2023 Prepared By: Андрей Mon Program [...] -score by a minimum of 5 points. [place] in home exercise program. Patient will demonstrate [...] Planned: 8 Planned Treatment Interventions: Therapeutic exercise (22323), Neuromuscular re- education (85774), Therapeutic activities (34306), Gait Training (44079), Patient/Family/Caregiver Education PLAN FOR NEXT VISIT: Strength, [...] and reviewed HEP* Access Code: [email or web address] URL: [email or web address] Date: 11/20/2023 Prepared by: Андрей Mno Exercises - Supine Bridge - 1 x [...] Time (minutes): 45 Session Start Time : 1801 Session Stop Time : 1846 Андрей Mon, PT documented in this encounterPromedica Flower Hospital07-31-2024 Instructions* Patient Instructions* Hortencia Gallardo MD - 11/12/2023 11:26 AM EDT Magnesium supplement that doesn't cause diarrhea [email or web address] Phosphorus/calcium/vitamin D supplement [email or web address] documented in this encounterPromedica Flower Hospital07-31-2024 History of Present illness Narrative* Hortencia [...] 3 months Hortencia Gallardo MD 11/12/2023 Staff Hospital Sales Representative, [facility] [place] PRIMARY PROBLEM: iron def anemia, small bowel [...] SUBCUTANEOUSLY ONCE EVERY MONTH 2 mL 0 yablbdnmabf-qjflylbdq-egkisbct (TRELEGY ELLIPTA) 100-62.5-25 mcg inhalation powder Inhale [...] studies. Capsule study 2019: 1st gastric image: 1st duodenal image: 36 1st cecal image:does not reach the cecum in 13 hours and 19 minutes GET: SBTT:n/a TTT: Prep: Fair Gastric images are [...] visit. Either the patient or their legal fuels sales representative has been informed of the risks and benefits of -- and alternatives to -- treatment through a remote evaluation andconsents to proceed with the evaluation remotely. Patient consented to video visit. documented in this encounterPromedica Flower Hospital07-31-2024 NoteHNO ID: [id number] Author: HORTENCIA GALLARDO MD Service: ? Author [...] 3 months Hortencia Gallardo MD 11/12/2023 Staff Hospital Sales Representative, [facility] [place] PRIMARY PROBLEM: iron def anemia, small bowel [...] SUBCUTANEOUSLY ONCE EVERY MONTH 2 mL 0 ykggbzdblyz-hzvgidubi-ovjzhnvr (TRELEGY ELLIPTA) 100-62.5-25 mcg inhalation powder Inhale [...] The examination was ot (more content not included)...[facility]07-16-2024 NoteHNO ID: [id number] Author: WILTON PALMA RN Service: ? Author Type: Registered Nurse Type: Progress Notes Filed: 10/28/2023 13:24 Note Text: CDM Telephonic Outreach Provider Action/FYI CDM: CKD Left a message to verify symptom status, instructed to contact PCP for condition changes and needs. Goals updated Contacted for: Routine Telephonic Outreach Contact made with patient: No, left message. Wilton Palma RN October 28, 2023 1:17 [facility]07-16-2024 History of Present illness Narrative* Wilton Palma [...] Palma RN - 10/27/2023 11:32 AM EDT CDM Telephonic Outreach Provider Action/FYI CDM: CKD Called Pt to verify symptoms and needs, line was busy, unable to leave a message, Mail box was full Contacted for: Routine Telephonic Outreach Contact made with patient: No, unable to leave message. Will reattempt call Wilton Palma RN October 27, 2023 11:32 AM * [place] Palma RN - 10/24/2023 12:25 PM EDT CDM Telephonic Outreach Provider Action/FYI CDM: CKD Called Pt to verify symptoms and needs, line was busy, unable to leave a message, Mail box was full Goals updated Contacted for: Routine Telephonic Outreach Contact made with patient: No, unable to leave message. Will reattempt call Wilton Palma RN October 24, 2023 1:07 PM documented in this encounterPromedica Flower [facility]07-15-2024 NoteHNO ID: [id number] Author: WILTON PALMA RN Service: ? Author [...] Wilton Palma RN October 27, 2023 11:32 [facility]07-12-2024 NoteHNO ID: [id number] Author: WILTON PALMA RN Service: ? 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 ergocalciferol (Vitamin D2) 1.25 MG (56889 UT) capsule TAKE 1 CAPSULE BY MOUTH [...] PCP for further evaluation. documented in this [facility]06-12-2024 History of Present illness Narrative* Hortencia [...] time FOLLOW-UP: Hortencia Gallardo MD 09/24/2023 Staff Hospital Sales Representative, [facility] [place] PRIMARY PROBLEM: iron def anemia, small bowel [...] SUBCUTANEOUSLY ONCE EVERY MONTH 2 mL 0 ijlbhhnjncx-tmghqggwx-pvxuokvu (TRELEGY ELLIPTA) 100-62.5-25 mcg inhalation powder Inhale [...] and 19 minutes GET: 00 SBTT:n/a TTT:13 17 Prep: Fair Gastric images are limited. [...] visit. Either the patient or their legal fuels sales representative has been informed of the risks and benefits of -- and alternatives to -- treatment through a remote evaluation andconsents to proceed with the evaluation remotely. Patient consented to video visit. documented in this encounterPromedica Flower Hospital06-12-2024 NoteHNO ID: [id number] Author: HORTENCIA GALLARDO MD Service: ? Author [...] time FOLLOW-UP: Hortencia Gallardo MD 09/24/2023 Staff Hospital Sales Representative, [facility] [place] PRIMARY PROBLEM: iron def anemia, small bowel [...] SUBCUTANEOUSLY ONCE EVERY MONTH 2 mL 0 rpyxwofgfkb-fipovtbcm-oyzvcejm (TRELEGY ELLIPTA) 100-62.5-25 mcg inhalation powder Inhale [...] - No additional small (more content not included)...[facility] 09-19-2023 Telephone encounter Note* Telephone Encounter - Fidencio Mon RN - 09/19/2023 3:15 PM EDT Discussed with Dr. You to add pt 09/24/23 at 1600. Called pt to notify of sooner appt-no answer. Left VM with appt info. Fidencio Mon RN [facility]06-07-[facility] Miscellaneous Notes* Telephone Encounter - Fidencio [...] is still having. Kip documented in this encounterPromedica Flower Hospital06-06-2024 NoteHNO ID: [id number] Author: WILTON PALMA RN Service: ? Author Type: Registered Nurse Type: Progress Notes Filed: 09/18/2023 16:54 Note Text: CDM Telephonic Outreach Provider Action/FYI CDM: CKD Left a message to verify symptom status, instructed to contact PCP for condition changes and needs. Contacted for: Routine Telephonic Outreach Contact made with patient: No, left message. Wilton Palma RN September 18, 2023 4:53 [facility]06-06-2024 History of Present illness Narrative* Wilton Palma [...] 17, 2023 5:23 PM documented in this encounterPromedica Flower Hospital06-06-2024 Telephone encounter Note * Telephone Encounter - Tereza Sunshine - 09/18/2023 11:51 AM EDT 09/18/23 Patient calling for sooner appt.ed nurse cannot help with sooner appts. She can see if she can recommend anything for his internal bleeding issue he is still having. Kip [facility]06-05-2024 NoteHNO ID: [id number] Author: WILTON PALMA RN Service: ? Author Type: Registered Nurse Type: Progress Notes Filed: 09/18/2023 16:49 Note Text: CDM Telephonic Outreach Provider Action/FYI CDM: CKD Left a message to verify symptom status, instructed to contact PCP for condition changes and needs. Contacted for: Routine Telephonic Outreach Contact made with patient: No, left message. Wilton Palma RN September 17, 2023 5:23 [facility]06-05-2024 NotePatient Outreach ([facility]BCMG) ADINA DAVID ([id number]) 1955 M Date Time Provider Department 09/17/23 WILTON PALMA During your visit today, we [...] 1 DOSE SUBCUTANEOUSLY ONCE EVERY MONTH - zzjuzgotgei-qjstjuikc-lgxghvsu (TRELEGY ELLIPTA) 100-62.5-25 mcg inhalation powder Inhale [...] unspecified chronicity, uns*12/01/2022 Coronary artery disease involving turtle mountain falcon*12/02/2022 Other emphysema (HCC) [J43.8] 12/02/2022 Chronic [...] insomnia [F51.01] 12/13/2022 [place] (more content not included)...[facility]04-30-2024 NoteHNO ID: [id number] Author: WILTON PALMA RN Service: ? Author Type: Registered Nurse Type: Progress Notes Filed: 08/12/2023 15:36 Note Text: CDM Telephonic Outreach Provider Action/FYI CDM: CKD Left a message to verify symptom status and needs. Instructed to call PCP with any symptom or condition changes. Contacted for: Routine Telephonic Outreach Contact made with patient: No, left message. Wilton Palma RN August 12, 2023 3:[facility] History of Present illness Narrative* Wilton [...] 11, 2023 12:02 PM documented in this encounterPromedica Flower Hospital04-29-2024 NoteHNO ID: [id number] Author: WILTON PALMA RN Service: ? Author Type: Registered Nurse Type: Progress Notes Filed: 08/12/2023 15:36 Note Text: CDM Telephonic Outreach Provider Action/FYI CDM: CKD Left a message to verify symptom status and needs. Instructed to call PCP with any symptom or condition changes. Contacted for: Routine Telephonic Outreach Contact made with patient: No, left message. Wilton Palma RN August 11, 2023 12:02 [facility]04-29-2024 NotePatient Outreach ([facility]BCMG) ADINA DAVID ([id number]) 1955 M Date Time Provider Department 08/11/23 WILTON PALMA AMBChantelle During your visit today, we recorded the [...] 140 MG SUBCUTANEOUSLY ONCE EVERY MONTH - azbcafongvu-pktekecmx-mtubplye (TRELEGY ELLIPTA) 100-62.5-25 mcg inhalation powder Inhale [...] unspecified chronicity, uns*12/01/2022 Coronary artery disease involving turtle mountain falcon*12/02/2022 Other emphysema (HCC) [J43.8] 12/02/2022 Chronic deep vein thrombosis (DVT) of proximal *12/02/2022 AVM (arteriovenous malformation) [Q27.30] 12/02/2022 History of gastrointestinal bleeding [Z87.19] 12/02/2022 Tachycardia [R00.0] 12/03/2022 Elevated troponin [R79.89] 12/03/2022 12/11/2022 Pulmonary nodules [R91.8] 12/05/2022 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 Approval good from 04/14/2023 through 07/24/2024. Lm on pt vm of rx approval. Rowdy Asher LPN * Telephone Encounter - Rowdy Asher LPN - 07/25/2023 11:34 AM EDT PA sent via [employer] domenic. Rowdy Asher LPN documented in this encounterPromedica Flower Hospital04-04-2024 History of Present illness Narrative* Андрей Mon, PT - 07/17/2023 9:27 AM EDT Episode [...] 924 Андрей Mon PT documented in this encounterPromedica Flower Hospital04-02-2024 History of Present illness Narrative* Kaleigh Mueller, MAYITO - 07/15/2023 10:53 AM EDT Episode Visit [...] 30 x 3 6: diagonals 3.5 pl 7k48lmm 7: Leg ext 20# 3x15 8: Nustep 6min L5 9: Stretchboard for calf and soleus 0t75dle 10: Leg press 80# 3x15 11: Mid row 4pl 3x15 12: Leg curl 35# 0f23-98 13: High row 5pl 2a95-72 14: Straight arm pull down 4pl 3x15 Skilled Intervention: Skilled judgment was used in selection of appropriate interventions. Billing Total Session Time (minutes): 45 Session Start Time : 1102 Session Stop Time : 1147 Kaleigh Mueller PTA documented in this encounterPromedica Flower Hospital03-28-2024 NoteHNO ID: [id number] Author: WILTON PALMA RN Service: ? Author Type: Registered Nurse Type: Progress Notes Filed: 07/10/2023 15:48 Note Text: CDM Telephonic Outreach Provider Action/FYI CDM: CKD Left a message to verify symptom status, instructed to contact PCP for condition changes and needs. Contacted for: Routine Telephonic Outreach Contact made with patient: No, left message. Wilton Palma RN July 10, 2023 3:47 [facility]03-27-2024 NoteHNO ID: [id number] Author: WILTON PALMA RN Service: ? Author Type: Registered Nurse Type: Progress Notes Filed: 07/10/2023 15:48 Note Text: CDM Telephonic Outreach Provider Action/FYI CDM: CKD Left a message to verify symptom status, instructed to contact PCP for condition changes and needs. Contacted for: Routine Telephonic Outreach Contact made with patient: No, left message. Wilton Palma RN July 09, 2023 12:22 [facility]03-27-2024 NotePatient Outreach ([facility]) ADINA DAVID ([id number]) 1955 M Date Time Provider Department 07/09/23 WILTON PALMACMG During your visit today, we recorded the [...] Outreach [Other] Prescriptions as of 07/10/2023 - mxrdzppdbzv-hogyojdwd-keqadlny (TRELEGY ELLIPTA) 100-62.5-25 mcg inhalation powder Inhale [...] unspecified chronicity, uns*12/01/2022 Coronary artery disease involving turtle mountain falcon*12/02/2022 Other emphysema (HCC) [J43.8] 12/02/2022 Chronic [...] Z*12/11/2022 Primary insomnia [F51.01 (more content not included)...[facility]03-21-2024 History of Present illness Narrative* Pantera Steiner, PT - 07/03/2023 2:17 PM EDT Images from the original note were not included. Episode Visit Count: 10 Therapist That Will Accept/Oversee The Plan Of Care: Leister, J Start of Care Date: 05/16/23 Onset Date: [...] of Care: created on 05/16/23 through 08/14/23 [place] in home exercise program. Patient will decrease [...] Patient to be seen for Therapeutic exercise (74941), Manual therapy (36562), Self-intermediate management (78582), Aquatic PT (86915), Patient/Family/Caregiver Education, Group Therapy (51996) PLAN FOR NEXT VISIT: Continue land PT [...] 30 x 3 6: diagonals 3.5 pl 1h08fsu 7: Leg ext 20# 3x15 8: Nustep 7min L4 9: Stretchboard 8l07zun 10: Leg press 75# 3x15 11: Mid row 4pl 3x15 12: Leg curl 35# 5l45-97 13: High row 4pl 7i40-02 14: Straight arm pull down 4pl 3x15 [...] 1135 Pantera Steiner PT documented in this encounterPromedica Flower Hospital03-19-2024 History of Present illness Narrative* Kaleigh [...] celso 8: Nustep 5min L4 9: Stretchboard 0i79mvf 10: Leg press 70# 3x15 11: Mid row 4pl 3x10 12: Leg curl 30# 9k36-75 13: High row 4pl 4w51-97 Skilled Intervention: Skilled judgment was used in selection of appropriate interventions. Billing Total Session Time (minutes): 45 Session Start Time : 1000 Session Stop Time : 1045 Kaleigh Mueller PTA documented in this encounterPromedica Flower Hospital03-14-2024 History of Present illness Narrative* Eileen [...] celso 8: Nustep 5min L4 9: Stretchboard 9j90rcc 10: Leg press 70# 3x15 11: Mid row 4pl 3x10 12: Leg curl 30# 7d81-07 13: High row 4pl 6h52-61 Skilled Intervention: Patient was educated in proper [...] 0910 Eileen Medrano PTA documented in this encounterPromedica Flower Hospital03-08-2024 History of Present illness Narrative* Pantera [...] of Care: created on 05/16/23 through 08/14/23 [place] in home exercise program. Patient will decrease [...] Patient to be seen for Therapeutic exercise (53364), Manual therapy (44517), Self-intermediate management (08675), Aquatic PT (33094), Patient/Family/Caregiver Education, Group Therapy (74299) PLAN FOR NEXT VISIT: Continue land PT [...] *Bridges 8: Nustep 5min L4 9: Stretchboard 3b01cey 10: Leg press 70# 3x15 11: Mid row 4pl 3x10 12: Leg curl 30# 1z45-61 13: High row 4pl 5d90-15 Skilled Intervention: Patient was educated in proper [...] 1130 Pantera Steiner PT documented in this encounterPromedica Flower Hospital02-22-2024 History of Present illness Narrative* Eileen [...] 1430 Eileen Medrano PTA documented in this encounterPromedica Flower Hospital02-19-2024 History of Present illness Narrative* Eileen [...] per flowsheet TREATMENT: Aquatic Therapy: Aquatic Therapy (80550): 10 1: Walk f/b/s 2: squats x [...] 924 Eileen Medrano PTA documented in this encounterPromedica Flower Hospital02-16-2024 History of Present illness Narrative* Heaven [...] is in. He plans to travel to [place] in a few weeks. He has performed aquatic PT before and thought it would be helpful to get him moving without hurting more. He would also like to return to right [employer] class at gym. Patient reports fatigue after last visit but doing okay. Last visit was too early and didn't do as well. Goes to [employer] 2x/week. Has plans to go on vacation to [place] with dtr to visit friends Pain: Pain [...] 919 Heaven Shelley PTA documented in this encounterPromedica Flower Hospital02-14-2024 History of Present illness Narrative* Kaleigh [...] is in. He plans to travel to [place] in a few weeks. He has performed aquatic PT before and thought it would be helpful to get him moving without hurting more. He would also like to return to right fit class at gym. Pain: Pain Pain Level: 5 Pain Location: Back OBJECTIVE MEASURES WITH LEVEL OF FUNCTION: Low stamina TREATMENT: Aquatic Therapy: Aquatic Therapy (40495): 8 1: walk 2: squats x10 3: [...] 814 Kaleigh Mueller PTA documented in this encounterPromedica Flower Hospital02-13-2024 NoteHNO ID: [id number] Author: WILTON PALMA RN Service: ? Author Type: Registered Nurse Type: Progress Notes Filed: 06/02/2023 13:53 Note Text: CDM Telephonic Outreach Provider Action/FYI CDM: CKD Left a message to verify symptom status and needs. Instructed to call PCP with any symptom or condition changes. Contacted for: Routine Telephonic Outreach Contact made with patient: No, left message. Wilton Palma RN May 27, 2023 1:21 [facility]02-13-2024 History of Present illness Narrative* Wilton Palma RN - 05/27/2023 1:19 PM EST CDM Telephonic Outreach Provider Action/FYI CDM: CKD Left a message to verify symptom status and needs. Instructed to call PCP with any symptom or condition changes. Contacted for: Routine Telephonic Outreach Contact made with patient: No, left message. Wilton Palma RN May 27, 2023 1:21 PM documented in this encounterPromedica Flower Hospital02-13-2024 NotePatient Outreach ([facility]) ADINA DAVID ([id number]) 1955 M Date Time Provider Department 05/27/23 WILTON PALMA [facility]MG During your visit today, [...] Outreach [Other] Prescriptions as of 06/02/2023 - twjajeguour-mfearnshq-fepcxgrk (TRELEGY ELLIPTA) 100-62.5-25 mcg inhalation powder Inhale [...] unspecified chronicity, uns*12/01/2022 Coronary artery disease involving turtle mountain falcon*12/02/2022 Other emphysema (HCC) [J43.8] 12/02/2022 Chronic [...] 12/13/2022 Encounter Status:Closed by WILTON PALMA on 06/02/23[facility] History of Present illness Narrative* Pantera Steiner, [...] of Care: created on 05/16/23 through 08/14/23 [place] in home exercise program. Patient will decrease [...] Planned: 12 Planned Treatment Interventions: Therapeutic exercise (63884), Manual therapy (55046), Self-intermediate management (53296), Aquatic PT (06978), Patient/Family/Caregiver Education, Group Therapy (04056) PLAN FOR NEXT VISIT: Initiate aquatic therapy [...] is in. He plans to travel to [place] in a few weeks. He has performed aquatic PT before and thought it would be helpful to get him moving without hurting more. He would also like to return to [employer] class at gym. Patient Goals: resolve pain Functional Limitations: sitting, rising from a chair, standing, walking, physical activities, recreational activities, sleeping Prior Level of Function: Independent without limitations Relevant History Past Relevant Medical Conditions: Cancer, Hypertension, Falls, Blood Disorders, Covid Employment: Retired Recreation / Current Exercise: right [employer] class-2x per week Intake Information: Prescription present [...] 909 Pantera Steiner PT documented in this encounterPromedica Flower Hospital01-23-2024 Hospital Discharge instructions Patient Education 05/05/2023 [...] back pain in a person with cancer 9165-[address] [employer] [place] [address]889. All rights reserved. This information is not intended as a substitute for professional medical care. Always follow yourhealthcare professional's instructions. Follow Up Care 05/05/2023 20:55:19 With:ULISES RAMOS DO Address: [address] [place] [phone] When:2-4 days [facility] 01-22-2024 Note Discharge Instructions Thank you for allowing [facility] to assist you with your healthcare needs. [...] RAMOS DO When Within 2-4 days Where: [address] [place] [address] [phone]- [phone] Allergies doxycycline penicillin Medications Please ask your primary doctor or pharmacist before taking any other medication not listed, including over the counter drugs, herbal medications, vitamins and or supplements as they may interact withur home medications. What How Much When Why Instructions Last Dose New acetaminophen-hydrocodone (Laurel 325- 5 mg oral tablet) 1 tab(s) [...] SEET a MIN oh fen and dorota TRINH done) Lortab Elixir, Verdrocet What is [...] may report side effects to FDA at 1-189-NEF-1047. What other drugs will affect acetaminophen and [...] affect acetaminophen and hydrocodone, including prescription and fwnj-gux-qduiczf medicines, vitamins, and herbal products. Not all [...] to ensure that the information provided by [employer]. ('[employer]') is accurate, up-to-date, and complete, but no guarantee is made to that effect. Drug information contained herein may be time sensitive. [employer] information has been compiled for use by healthcare practitioners and consumers in the [place] and therefore [employer] does not warrant that uses outside of the [place] are appropriate, unless specifically indicated otherwise. [employer] drug information does not endorse drugs, diagnose patients or recommend therapy. [employer] drug information isan informational resource designed to [...] effective or appropriate for any given patient. [employer] does not assume any responsibility for any aspect of healthcare administered with the aid of information [employer] provides. The information contained herein is not intended to cover all possible uses, directions, precautions, warnings, drug interactions, allergic reactions, or adverse effects. If you have questions about the drugs you are taking, check with your doctor, nurse or pharmacist. Copyright 4827-3126 [employer] Version: 19.. Revision Date: 12/02/2022. Education Materials [...] back pain in a person with cancer 9843-[address]001 [employer]. [address] [place] [address]. All rights reserved. This information is not intended as a substitute for professional medical care. Always follow yourhealthcare professional's instructions. Additional Information VACCINATE! IT SAVES LIVES! Members of the community who have not yet received the COVID-19 vaccine and would like to receive it can visit one of [facility] vaccine clinics. There are many vaccine clinic locations within the [facility]. For locations and available times, please visit www.gettheshot.coronavirus.[place].gov/. It is important to note that some COVID mobile vaccine clinics are held outdoors and may be canceled in rainy or stormy conditions. To learn more about pediatric vaccinations (ages 5-11), we invite you to visit the [facility] webpage. https://www.[email or web address].org/pages/5761-Nztlw-Fufqwzjvlxw-Ianqzpvdqr-Gyxbv-Qtb stions.htmlTo learn more about the COVID-19 vaccine, we invite you to visit the CDC website for a list of frequently asked questions. https://www.cdc.gov/coronavirus/2019-ncov/vaccines/faq.html [facility] Patient Portal Access Instructions: Stay connected with your healthcare team and access your personal medical information anytime with the [facility] Patient Portal. If you would like a full copy of your medical records please contact the [facility] Medical Records Department Friday through Friday between 8a.m. and 4:30p.m. Please follow the directions below to access the portal: 1.Access the email account you provided upon registration to the [facility].2.Look for an invitation email from [facility].3.Open the email and access the invitation link: Accept Invitation to [facility]4.Fill in the required morales to create your account. Sign into www.[employer] with your username and password that you [...] you will allow to register on the [facility] Patient Portal for access to your information. You can also access the [facility] Patient Portal on the [employer] domenic. Simply click on Health Records under [employer] and then click on the [employer] logo. HOW TO SAFELY DISPOSE OF PRESCRIPTION [...] Call your local pharmacy or go to http://bit.[employer]/7L0Sm4k to find one close to you.3.Make use of household items: Use cat litter or old coffee grounds to dispose medications if other options arenot available. Mix your drugs with these household products, seal them in an airtight container andthrow it into the garbage. Call [facility]: [phone] to be sure your drugs can be [...] aware that I should contact my doctor. Patient/Food Chemist Signature: Date/Time: Relationship to Patient: Witness Name/Signature: Date/Time: [facility]01-22-2024 Note ORIGINAL EXAMINATION: 3 XRAY VIEWS OF [...] Date: 05/05/2023 11:15:21 PM [facility] ORIGINAL EXAMINATION: CT OF THE CERVICAL [...] Sign Date: 05/05/2023 11:06:53 PM Ordering Provider: [facility]01-22-2024 Note ORIGINAL EXAMINATION: CT OF THE [...] Sign Date: 05/06/2023 12:09:18 AM Ordering Provider: [facility]01-22-2024 Note ORIGINAL EXAMINATION: CT OF THE [...] Sign Date: 05/05/2023 11:20:44 PM Ordering Provider: [facility]01-12-2024 NoteHNO ID: [id number] Author: WILTON PALMA RN Service: ? Author Type: Registered Nurse Type: Progress Notes Filed: 04/25/2023 15:43 Note Text: CDM Telephonic Outreach Provider Action/FYI CDM: CKD Left a message to verify symptom status, instructed to call PCP with any changes in condition?or needs. Contacted for: Routine Telephonic Outreach Contact made with patient: No, left message. Wilton Palma RN April 25, 2023 3:42 [facility]01-10-2024 NoteHNO ID: [id number] Author: WILTON PALMA RN Service: ? Author Type: Registered Nurse Type: Progress Notes Filed: 04/25/2023 15:43 Note Text: CDM Telephonic Outreach Provider Action/FYI CDM: CKD Left a message to verify symptom status, instructed to call PCP with any changes in condition?or needs. Contacted for: Routine Telephonic Outreach Contact made with patient: No, left message. Wilton Palma RN April 23, 2023 5:21 [facility]01-10-2024 NotePatient Outreach ([facility]) ADINA DAVID ([id number]) 1955 [place] Date Time Provider Department 04/23/23 WILTON PALMA [facility] During your visit today, [...] Outreach [Other] Prescriptions as of 04/25/2023 - pmbzoswciez-erfjocxli-oumqscrc (TRELEGY ELLIPTA) 100-62.5-25 mcg inhalation powder Inhale [...] unspecified chronicity, uns*12/01/2022 Coronary artery disease involving turtle mountain falcon*12/02/2022 Other emphysema (HCC) [J43.8] 12/02/2022 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 Author Type: Registered Nurse Type: Progress Notes Filed: 03/17/2023 12:39 PM Note Text: CDM Telephonic Outreach Provider Action/FYI CDM: CKD Left a message to verify symptom status, instructed to call PCP with any changes in condition?or needs. Contacted for: Routine Telephonic Outreach Contact made with patient: No, left message. Wilton Palma RN March 17, 2023 12:35 [facility]12-04-2023 History of Present illness Narrative* Wilton Palma [...] 12, 2023 9:14 AM documented in this encounterPromedica Flower Hospital11-29-2023 NoteHNO ID: [id number] Author: Wilton Palma RN Service: ? Author Type: Registered Nurse Type: Progress Notes Filed: 03/17/2023 12:39 PM Note Text: CDM Telephonic Outreach Provider Action/FYI CDM: CKD Left a message to verify symptom status, instructed to call PCP with any changes in condition?or needs. Contacted for: Routine Telephonic Outreach Contact made with patient: No, left message. 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 year old male patient with CAD s/p [place] in 2019 with PCI to LAD Hypertension CKD stage III s/p nephrectomy GI bleed with arteriovenous malformation of colon CLL 6. CIRA 7. DVT/PE?: did not take anticoagulation: hospitalized on 11/2022 at [facility] for this, back in 12/2022 with [...] oral, Daily ergocalciferol (Vitamin D-2) 1.25 MG (79597 UT) capsule escitalopram (LEXAPRO) 5 mg, oral, Daily fluticasone (Flonase) 50 mcg/actuation nasal spray 1 spray, Each Nostril, Daily gquwnnyoege-kqmdnbljc-ovapfzkd (Trelegy Ellipta) 100-62.5-25 mcg blister with device [...] for a Watchman procedure. documented in this [facility] Work Phone: [phone] NoteHNO ID: [id number] Author: Note, Interface Service: ? Author Type: ? Type: Progress Notes Filed: 01/25/2023 2:22 AM Note Text: Epic Scheduled Downtime: 01/25/2023 1:00:00 AM to 01/25/2023 1:28:00 [facility]10-10-2023 Miscellaneous Notes* Telephone Encounter - Lucio Juan MA - 01/21/2023 2:58 PM EDT Fyi- called patient to schedule his follow up appt. Pt declined and states he is no longer following up with [facility] providers-jj documented in this encounterPromedica Flower Hospital10-06-2023 Miscellaneous Notes* Telephone Encounter - Marielos Schwartz - 01/17/2023 9:15 AM EDT MRO faxed and placed in scanned bin documented in this encounterPromedica Flower Hospital10-04-2023 NoteHNO ID: [id number] Author: Wilton Palma RN Service: ? Author Type: Registered Nurse Type: Progress Notes Filed: 02/03/2023 6:20 PM Note Text: CDM Telephonic Outreach Provider Action/JULIAI Spk with Pt he noted was Admitted to [facility] 12/01/22-12/11/22 he noted was not happy with care. he reported is firing all [facility] providers. Pt noted will have an ultrasound of his right leg today, attempted to assess for symptoms and care needs, but was unable, Pt states he is not unhappy or upset with [employer]but with the other providers. Contacted for: Routine Telephonic Outreach Contact made with patient: Yes Patient identified by name and date of . Discussed care with patient Are you experiencing any new or worsening symptoms you need to talk about today? Yes Wilton Palma RN January 15, 2023 11:51 [facility]10-04-2023 History of Present illness Narrative* Wilton Palma RN - 01/15/2023 11:27 AM EDT [facility] Telephonic Outreach Provider Samia/KIMO Peacock with Pt he noted was Admitted to [facility] 12/01/22-12/11/22 he noted was not happy with care. he reported is firing all [facility] providers. Pt noted will have an ultrasound of his right leg today, attempted to assess for symptoms and care needs, but was unable, Pt states he is not unhappy or upset with [employer].but with the otherproviders. Contacted for: Routine Telephonic Outreach Contact made with patient: Yes Patient identified by name and date of . Discussed care with patient Are you experiencing any new or worsening symptoms you need to talk about today? Yes Wilton Palma RN January 15, 2023 11:51 AM documented in this encounterPromedica Flower Hospital10-04-2023 NotePatient Outreach ([facility]) ADINA DAVID ([id number]) 1955 M Date Time Provider Department 01/15/23 WILTON PALMA [facility] During your visit today, we recorded the following information about you: Wilton Palma RN 02/03/2023 6:20 PM Signed [facility] Telephonic Outreach Provider Samia/KIMO Peacock with Pt he noted was Admitted to [facility] 12/01/22-12/11/22 he noted was not happy with care. he reported is firing all [facility] providers. Pt noted will have an ultrasound of his right leg today, attempted to assess for symptoms and care needs, but was unable, Pt states he is not unhappy or upset with [employer].but with the other providers. 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 [facility]09-29-2023 Miscellaneous Notes* Telephone Encounter - Quentin Guidry RN - 01/10/2023 3:29 PM EDT Call transfer received from Roland Ureña said pt needs handicap placard ordered on 12/19/22 (pending) to be sent to [facility] via fax at the request of the [employer] sales representative on the line then transferred the call over. Messaged metal extrusion supervisor TRAVON Cooney if ok to send Placard order to [employer] at pt's request. Ivet said ok. Placard sent to [facility] at their fax number as requested. Quentin Guidry LPN documented in this encounterPromedica Flower Hospital09-22-2023 Miscellaneous Notes* Telephone Encounter - Quentin Guidry RN - 01/03/2023 4:03 PM EDT Pt needs rescheduled (Appointment date 03/05/23) due to Dr Halle Dale schedule change. Pt unavailableat home phone. Left message on voicemail for return call. Quentin Guidry LPN documented in this encounterPromedica Flower Hospital09-20-2023 NoteHNO ID: [id number] Author: Maddie White RN Service: ? Author Type: Registered Nurse Type: Progress Notes Filed: 01/01/2023 2:18 PM Note Text: TRANSITION CARE MANAGEMENT (TCM) FOLLOW-UP NOTE Provider Action/FYI Chart reviewed. Per chart notes for [facility], [facility] No further follow-up at this time. Summary: Pt discharged from [facility] on 12/11/22. Admitted for: SOB, fatigue-Chronic pulmonary embolism Signature Maddie White RN January 01[facility]09-[facility] History of Present illness Narrative* Maddie White RN - 01/01/2023 2:15 PM EDT TRANSITION CARE MANAGEMENT (TCM) FOLLOW-UP NOTE Provider Action/FYI Chart reviewed. Per chart notes for [facility], pt has been admitted to inpatient at [facility]. No further follow-up at this time. Summary: Pt discharged from [facility] on 12/11/22. Admitted for: SOB, fatigue-Chronic pulmonary embolism Signature Maddie White RN January 01, 2023 documented in this encounterPromedica Flower Hospital09-20-2023 NotePatient Outreach ([facility]) ADINA DAVID ([id number]) 1955 M Date Time Provider Department 01/01/23 MADDIE WHITE During your visit today, we recorded the following information about you: Maddie White RN 01/01/2023 2:18 PM Signed TRANSITION CARE MANAGEMENT (TCM) FOLLOW-UP NOTE Provider Action/FYI Chart reviewed. Per chart notes for [facility], pt has [facility] No further follow-up at this time. Summary: Pt discharged from [facility] on 12/11/22. Admitted for: SOB, fatigue-Chronic pulmonary [...] tablet by mouth daily at bedtime. - irrcyekwjsh-pafzeblnu-xebopqpp (TRELEGY ELLIPTA) 100-62.5-25 mcg inhalation powder Inhale [...] unspecified chronicity, uns*12/01/2022 Coronary artery disease involving turtle mountain falcon*12/02/2022 Other emphysema (HCC) [J43.8] 12/02/2022 Chronic [...] 12/13/2022 Encounter Status:Closed by MADDIE WHITE on 01/01/23[facility] 12-30-2022 Miscellaneous Notes* Telephone Encounter - Jenifer Lloyd LPN - 12/30/2022 11:27 AM EDT Halle Dale MD, [facility] received a referral for [facility] services. Frank[facility]. At this time we will be canceling the referral. Thank you, Jenifer Lloyd LPN [facility] Admissions Intake Nurse documented in this encounterCleveland [id number] Miscellaneous Notes* Telephone Encounter - Marley Falk RD - 12/24/2022 12:04 PM EDT Received consult from Dr. Dale regarding patient's weight loss and poor appetite. Called and spoke to patient's daughter, who states patient is currently admitted to [facility] with the potential of being discharged to a rehab facility. I explained patient would be followed by an RD atrehab. Family is interested hot meal delivery if patient is able to go back home. Provided my contact information for daughter to follow up once patient is d/c from rehab. Marley Falk RD documented in this encounterPromedica Flower Hospital09-11-2023 Miscellaneous Notes* Telephone Encounter - Sue Raygoza LPN - 12/23/2022 5:[address] Dale, Thank you for the referral for Adina to [facility] home care services with [facility]. In [...] you for the referral for Adina to [facility] home care services with [facility]. In reviewing your office note, he is has respiratory symptoms that could use nursing intervention and on going assessment. Would you be agreeable to adding SN to the order as well as the diagnosis the CLL (chronic lymphocytic leukemia) (HCC)? Thank you, Sue Raygoza LPN documented in this encounterPromedica Flower Hospital09-11-2023 Note. MICRO - Microbiology PROCEDURE: Blood [...] Locations *1: This test was performed at: [address], [facility] , [facility] ([place])12-23-2022 Note. MICRO - Microbiology PROCEDURE: Blood Culture [...] Locations *1: This test was performed at: [address], [address] [place] [address] ([facility]12-21-2022 Note. MICRO - Microbiology PROCEDURE: Urine Culture [...] Locations *1: This test was performed at: [address], [address] [place] [address] ([place])12-19-2022 History of Present illness Narrative* Halle Dale MD - 12/19/2022 5:34 PM EDT PROGRESS NOTE 12/18/2022 Chief Complaint: Mr. Adina David is here to follow up his hematological conditions (CLL, MPN, VTE, bleeding) Interval History: Here to follow up. Accompanied by daughter. He was recently hospitalized at [facility] due to acute respiratory failure. PET [...] weekend. Scheduled for bronchoscopy with his primary title processor at [facility] tomorrow. He's barely eating, loosing weight, [...] capsule (VITAMIN D2, DRISDOL) once every month. zijxotilqwl-xflkdzmdv-wwzzbabs (TRELEGY ELLIPTA) 100-62.5-25 mcg inhalation powder Inhale [...] Lymph 1.00 - 4.00 k/uL 44.38 (H) [place]% % 4.0 Abs [place] <0.87 k/uL 2.19 (H) Eosin% % 0.0 [...] 08/28, and 10/10. He underwent endoscope at [facility] on 10/09/2022, found bleeders s/p endoscopic [...] PE - scheduled for outpatient bronch at [facility] tomorrow. 4. 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 GIB - admitted to [facility] in 04/2021 with Hb 4.8, transfused [...] 08/16, 08/28, 10/10. He underwent endoscope at [facility] on 10/09/2022, found bleeders s/p endoscopic [...] Level: 4 - Moderate documented in this encounterPromedica Flower Hospital09-07-2023 Miscellaneous Notes* Telephone Encounter - Pratibha De La Rosa MA - 12/19/2022 3:53 PM EDT Patient has been notified of recent PSA results and has verbalized his understanding. Pratibha De La Rosa MA documented in this encounterPromedica Flower Hospital09-07-2023 Miscellaneous Notes* Telephone Encounter - Pantera Irwin MA - 12/19/2022 8:08 AM EDT Left message for pt to call back office Pantera Irwin MA * Telephone Encounter - Pantera Irwin MA - 12/19/2022 8:08 AM EDT ----- Message from Loy Mcallister MD sent at 12/18/2022 6:30 PM EDT ----- Notify patient PSA has come down to 3.18. documented in this encounterPromedica Flower Hospital09-01-2023 Miscellaneous Notes* Addendum Note - Nakul Gallegos MD - 12/13/2022 1:05 PM EDTAddended by: NAKUL GALLEGOS on: 12/13/2022 01:05 PM Modules accepted: Orders documented in this encounterPromedica Flower Hospital09-01-2023 NoteHNO ID: [id number] Author: Nakul Gallegos MD Service: ? Author Type: Physician Type: Progress Notes Filed: 12/13/2022 12:59 PM Note Text: [facility] DEPARTMENT OF PULMONARY MEDICINE Date: December 13, 2022 Patient Name: Adina David Adina David is a 67 year old yr old male, presents to the [facility] [place] for evaluation of CIRA and insomnia. Patient [...] for internal providers or letter via the [employer] Postal Service for external providers. Patient Entered Questionnaires: PROMIS Global Health - (T-Scores - the mean of general population = 50. Five points is a clinically meaningful difference.) 05/31/2022 05/31/2022 12/05/2021 Physical T-Score 29.6 29.6 34.9 Mental T-Score 36.3 36.3 - Modified Medical Research [place] Dyspnea Scale (MMRC) I am too breathless to leave the house or I am breathless when dressing 4 Daily cough: Yes Daily Sputum: Yes IMMUNIZATIONS: Immunization History Administered Date(s) Administered COVID-19 original vaccine, age 12+ yr, monovalent (ASSET4 - GAYLE TOP) 07/24/2021 COVID-19 original vaccine, [...] congestionno, epistaxis no. GI: (more content not included)...[facility]09-01-2023 History of Present illness Narrative* Nakul Gallegos MD - 12/13/2022 10:57 AM EDT Images from the original note were not included. [facility] DE[facility]ICINE Date: December 13, 2022 Patient Name: Adina David Adina David is a 67 year old yr old male, presents to the [facility] [place] for evaluation of OSAand insomnia. Patient has [...] for internal providers or letter via the [employer] Postal Service for external providers. Patient Entered Questionnaires: PROMIS Global Health - (T-Scores - the mean of general population = 50. Five points is a clinicallymeaningful difference.) 05/31/2022 05/31/2022 12/05/2021 Physical T-Score 29.6 29.6 34.9 Mental T-Score 36.3 36.3 - Modified Medical Research [place] Dyspnea Scale (MMRC) I am too breathless to leave the house or I am breathless when dressing 4 Daily cough: Yes Daily Sputum: Yes IMMUNIZATIONS: Immunization History Administered Date(s) Administered COVID-19 original vaccine, age 12+ yr, monovalent (ASSET4 - GAYLE TOP) 07/24/2021 COVID-19 original vaccine, [...] 16 Ht 5' 10 (1.78m) SpO2 88% http://www.calculator.net/reset-sswmzv-dlzlssevea.[email or web address] GEN: Breathingnonlabored, Cachexia not present . 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 PSP - Spirometry results were repeatable. Aerosol Albuterol 0.83% used as bronchodilator IMPRESSION: Spirometry indicates moderate obstruction. There is no significant bronchodilator response. Electronically Signed On 07-19-2022 8:02:07 EDT by Albino Hardy MD ID: [id number] Name: ADINA DAVID Race: White Ht: 70.00 in Wt: 199.00 lbs Age: 66 Gender: Male : 1955 Dx: Chronic obstructive pulmonary disease with (acute) exacerbation Smoking Hx: Non-smoker Doctor: ULISES RAMOS Test Date: 07/18/2022 Site: [facility] Tech: Olivier Mckeon PRE-BRONCH POST-BRONCH Pre [...] 0.50 23 FIVC (L) 4.36 4.22 -3 USW24-09 (L/sec) 0.90 1.11 2.51 4.47 36 0.77 [...] counseling Nakul Gallegos MD documented in this encounterPromedica Flower Hospital08-31-2023 NoteHNO ID: [id number] Author: Maddie White RN Service: ? Author Type: Registered Nurse Type: Progress Notes Filed: 12/12/2022 11:50 AM Note Text: TCM Home Visit Referral Source of Stratification: [facility] Hospital Admission Status: Discharged Readmission Risk [...] Status: In-Network Discharge Pt discharged from [facility] on 12/11/22. Admitted for: SOB, fatigue-Chronic pulmonary embolism Contact made with patient: Yes Hi my name is Maddie White RN and I am calling from the [facility] on behalf of your PCP, Ulises [...] like to speak with a social work bakery team leader to help give you support [...] I will send your request to a senior software project manager who will contact and assist you with [...] way if possible). [employer] Education Ordered -: [facility]08-31-2023 NotePatient Outreach ([facility]) ADINA DAVID ([id number]) 1955 M Date Time Provider Department 12/12/22 MADDIE WHITE [facility] During your visit today, we recorded the following information about you: Maddie White RN 12/12/2022 11:50 AM Signed TCM Home Visit Referral Source of Stratification: [facility] Hospital Admission Status: Discharged Readmission Risk [...] Network Status: In-Network Discharge Pt discharged from [facility] on 12/11/22. Admitted for: SOB, fatigue-Chronic pulmonary embolism Contact made with patient: Yes Hi my name is Maddie White RN and I am calling from the [facility] on behalf of your PCP, Ulises [...] like to speak with a social work bakery team leader to help give you support [...] I will send your request to a senior software project manager who will contact and assist you with [...] Cmt: TCM initia (more content not included)... [facility]08-30-2023 NoteHNO ID: [id number] Author: Kirill Palacio RPh Service: Pharmacy Author [...] RPh December 11, 2022 4:12 PM Pager: [phone] 12/11/2022 4:12 PM Medication List START taking [...] ELLIPTA 100-62.5-25 mcg inhalation powder Generic drug: odggcijzttn-oegxwarsa-ojnpvsmt Inhale 1 Puff as instructed once daily. [...] Your Medications These medications were sent to [facility] [address] [place] [address] Hours: Friday-Friday 7am-8pm, Friday, Friday and Holidays 9am-5pm enoxaparin 40 mg/0.4 mL metoprolol tartrate (short acting) 25 mg tablet sodium bicarbonate 650 mg tablet These medications were sent to [facility] [address] [place] [address] [place] [address] hydroxyurea 500 mg capsule TRELEGY ELLIPTA 100-62.5-25 mcg inhalation [facility] 12-11-2022 NoteHNO ID: [id number] Author: Vahe Cancino Service: ? Author Type: Screw Driver Operator Type: Plan of Care Filed: 12/11/2022 4:06 PM Note Text: PHARMACY BEDSIDE DELIVERY SERVICE Patient Name: Adina David The marked outpatient medications were Filled at: [facility] and delivered to the patient's [...] ELLIPTA 100-62.5-25 mcg inhalation powder Generic drug: ftqouneosoq-pxikjggks-ncmgnpku Inhale 1 Puff as instructed once daily. [...] Commonly known as: VALTREX Vahe Cancino PAGER: [phone] December 11, 2022 4:05 [facility]08-29-2023 NoteHNO ID: [id number] Author: Ki Levin MD Service: Hematology/Oncology Author Type: Physician Type: Plan of Care Filed: 01/01/2023 5:52 PM Note Text: This note was created in error.[facility]08-29-2023 NoteHNO ID: [id number] Author: Bassam Qureshi Service: Pharmacy Author Type: Screw Driver Operator Type: Plan of Care Filed: 12/10/2022 11:26 [...] pharmacy, please send new prescription(s) over to [facility]. Any questions, [place] [phone]. Thank you (Prices may vary at different pharmacy locations, this is the cost at [facility]08-29-2023 NoteHNO ID: [id number] Author: Gilbert Garcia LSW Service: Care Management Author Type: Business Process Manager Type: Care Mgt Progress Note Filed: 12/11/2022 [...] 10, 2022 TIME: 11:15 AM PAGER/CONTACT #: [phone] [facility]-29-2023 NoteHNO ID: [id number] Author: Carole Pascal MD Service: General Internal Medicine Author Type: Physician Type: Progress Notes Filed: 12/10/2022 4:44 PM Note Text: General Internal Medicine - Service Max Haro Progress Note From 7am to 5pm: Please page [phone] After hours 5pm to 7am: Please page on-call [phone] SERVICE DATE: 12/10/2022 SERVICE TIME: 9:05 AM [...] 12/04/2022 5.5 5.0 - 8.0 Final Specific [place], Ur Date Value Ref Range Status 12/04/2022 [...] the small saphenous v (more content not included)...[facility]08-28-2023 History of Present illness Narrative* Yoselin Dobbs, PhD - 12/09/2022 8:22 AM EDT [facility] GENERAL Psycho-Oncology Program CONFIDENTIAL INITIAL PSYCHOLOGICAL EVALUATION DATE OF SERVICE: December 09, 2022, Virtual Initial Diagnostic Evaluation, 8:15pm to 9:00am PRESENT: Patient REFERRAL SOURCE: Dr. Dale Due to the [facility] and [facility] and the need for ongoing mental health services, thefollowing visit was completed virtually to reduce the risk of COVID-19 exposure. Consent related tovirtual visits was provided verbally after information was sent via [employer] for Google Glass or read to patient if MyChart not [...] breathe, can't move) Will assess PHQ and GABRIELAL next session. MDD: history of depression over [...] contrast (radiology procedure) INTRAVENOUS DIRECTED PRN Silvino Barcenas, iv contrast (radiology procedure) INTRAVENOUS DIRECTED PRN Silvino Barcenas, NaCl 0.9% iv flush bag 20 mL INTRAVENOUS PRN David Petersen MD acetaminophen 650 mg tab(s) (TYLENOL) 650 mg ORAL q 6 H PRN Umesh Pierre MD 650 mg at melatonin 1 mg tab(s) 1 mg ORAL [...] Dobbs, Ph.D. Staff Clinical Psychologist Hem/Medical Onc [facility] [id number] This note was partially generated using bettermarks voice recognition system. documented in this encounterPromedica Flower Hospital08-28-[facility]23 NoteHNO ID: [id number] Author: Carole Pascal MD Service: General Internal Medicine Author Type: Physician Type: Progress Notes Filed: 12/09/2022 4:35 PM Note Text: General Internal Medicine - Service Max Haro Progress Note From 7am to 5pm: Please page [phone] After hours 5pm to 7am: Please page on-call [phone] SERVICE DATE: 12/07/2022 SERVICE TIME: 9:05 AM [...] 12/04/2022 5.5 5.0 - 8.0 Final Specific [place], Ur Date Value Ref Range Status 12/04/2022 [...] deep vein thrombosis. [place] (more content not included)...[facility]08-27-2023 NoteHNO ID: [id number] Author: Roger Guerrier MD Service: General Internal Medicine Author Type: Physician Type: Progress Notes Filed: 12/08/2022 10:48 AM Note Text: General Internal Medicine - Service Max Haro Progress Note From 7am to 5pm: Please page [phone] After hours 5pm to 7am: Please page on-call [phone] SERVICE DATE: 12/07/2022 SERVICE TIME: 9:05 AM [...] 12/04/2022 5.5 5.0 - 8.0 Final Specific [place], Ur Date Value Ref Range Status 12/04/2022 [...] RIGHT SIDE - SUPER (more content not included)...[facility] 12-07-2022 NoteHNO ID: [id number] Author: Roger Guerrier MD Service: General Internal Medicine Author Type: Physician Type: Progress Notes Filed: 12/07/2022 2:12 PM Note Text: General Internal Medicine - Service Max Haro Progress Note From 7am to 5pm: Please page [phone] After hours 5pm to 7am: Please page on-call [phone] SERVICE DATE: 12/07/2022 SERVICE TIME: 9:05 AM [...] 12/04/2022 5.5 5.0 - 8.0 Final Specific [place], Ur Date Value Ref Range Status 12/04/2022 [...] Assessment and Plan Acti (more content not included)...[facility]08-22-2023 History of Past illness Narrative* Problem Noted Date Diagnosed Date Resolved Date Elevated troponin 12/03/2022 12/11/2022 Closed left subtrochanteric femur fracture 07/22/2020 07/27/2020 Facial numbness 03/31/2019 04/03/2019 GI bleed 12/31/2018 01/11/2019 Frequency of urination 03/19/201802/11 AVM (arteriovenous malformation) of colon 01/11/2019 documented as of this encounter (statuses as of 12/13/2022) [facility] of Past illness Narrative* Problem Noted Date Diagnosed Date Resolved Date Elevated troponin 12/03/2022 12/11/2022 Closed left subtrochanteric femur fracture 07/22/2020 07/27/2020 Facial numbness 03/31/2019 04/03/2019 GI bleed 12/31/2018 01/11/2019 Frequency of urination 03/19/201802/11 AVM (arteriovenous malformation) of colon 01/11/2019 documented as of this encounter (statuses as of 12/13/2022) [facility] of Past illness Narrative* Problem Noted Date Diagnosed Date Resolved Date Elevated troponin 12/03/2022 12/11/2022 Closed left subtrochanteric femur fracture 07/22/2020 07/27/2020 Facial numbness 03/31/2019 04/03/2019 GI bleed 12/31/2018 01/11/2019 Frequency of urination 03/19/201802/11 AVM (arteriovenous malformation) of colon 01/11/2019 documented as of this encounter (statuses as of 12/19/2022) [facility] of Past illness Narrative* Problem Noted Date Diagnosed Date Resolved Date Elevated troponin 12/03/2022 12/11/2022 Closed left subtrochanteric femur fracture 07/22/2020 07/27/2020 Facial numbness 03/31/2019 04/03/2019 GI bleed 12/31/2018 01/11/2019 Frequency of urination 03/19/201802/11 AVM (arteriovenous malformation) of colon 01/11/2019 documented as of this encounter (statuses as of 12/20/2022) [facility] Narrative* Problem Noted Date Diagnosed Date Resolved Date Elevated troponin 12/03/2022 12/11/2022 Closed left subtrochanteric femur fracture 07/22/2020 07/27/2020 Facial numbness 03/31/2019 04/03/2019 GI bleed 12/31/2018 01/11/2019 Frequency of urination 03/19/201802/11 AVM (arteriovenous malformation) of colon 01/11/2019 documented as of this encounter (statuses as of 12/20/2022) [facility] Narrative* Problem Noted Date Diagnosed Date Resolved Date Elevated troponin 12/03/2022 12/11/2022 Closed left subtrochanteric femur fracture 07/22/2020 07/27/2020 Facial numbness 03/31/2019 04/03/2019 GI bleed 12/31/2018 01/11/2019 Frequency of urination 03/19/201802/11 AVM (arteriovenous malformation) of colon 01/11/2019 documented as of this encounter (statuses as of 12/24/2022) [facility] Narrative* Problem Noted Date Diagnosed Date Resolved Date Elevated troponin 12/03/2022 12/11/2022 Closed left subtrochanteric femur fracture 07/22/2020 07/27/2020 Facial numbness 03/31/2019 04/03/2019 GI bleed 12/31/2018 01/11/2019 Frequency of urination 03/19/201802/11 AVM (arteriovenous malformation) of colon 01/11/2019 documented as of this encounter (statuses as of 12/25/2022) [facility] Narrative* Problem Noted Date Diagnosed Date Resolved Date Elevated troponin 12/03/2022 12/11/2022 Closed left subtrochanteric femur fracture 07/22/2020 07/27/2020 Facial numbness 03/31/2019 04/03/2019 GI bleed 12/31/2018 01/11/2019 Frequency of urination 03/19/201802/11 AVM (arteriovenous malformation) of colon 01/11/2019 documented as of this encounter (statuses as of 12/27/2022) [facility] Narrative* Problem Noted Date Diagnosed Date Resolved Date Elevated troponin 12/03/2022 12/11/2022 Closed left subtrochanteric femur fracture 07/22/2020 07/27/2020 Facial numbness 03/31/2019 04/03/2019 GI bleed 12/31/2018 01/11/2019 Frequency of urination 03/19/201802/11 AVM (arteriovenous malformation) of colon 01/11/2019 documented as of this encounter (statuses as of 12/30/2022) [facility] Narrative* Problem Noted Date Diagnosed Date Resolved Date Elevated troponin 12/03/2022 12/11/2022 Closed left subtrochanteric femur fracture 07/22/2020 07/27/2020 Facial numbness 03/31/2019 04/03/2019 GI bleed 12/31/2018 01/11/2019 Frequency of urination 03/19/201802/11 AVM (arteriovenous malformation) of colon 01/11/2019 documented as of this encounter (statuses as of 01/01/2023) [facility] Narrative* Problem Noted Date Diagnosed Date Resolved Date Elevated troponin 12/03/2022 12/11/2022 Closed left subtrochanteric femur fracture 07/22/2020 07/27/2020 Facial numbness 03/31/2019 04/03/2019 GI bleed 12/31/2018 01/11/2019 Frequency of urination 03/19/201802/11 AVM (arteriovenous malformation) of colon 01/11/2019 documented as of this encounter (statuses as of 01/04/2023) [facility] Narrative* Problem Noted Date Diagnosed Date Resolved Date Elevated troponin 12/03/2022 12/11/2022 Closed left subtrochanteric femur fracture 07/22/2020 07/27/2020 Facial numbness 03/31/2019 04/03/2019 GI bleed 12/31/2018 01/11/2019 Frequency of urination 03/19/201802/11 AVM (arteriovenous malformation) of colon 01/11/2019 documented as of this encounter (statuses as of 01/11/2023) [facility] Narrative* Problem Noted Date Diagnosed Date Resolved Date Elevated troponin 12/03/2022 12/11/2022 Closed left subtrochanteric femur fracture 07/22/2020 07/27/2020 Facial numbness 03/31/2019 04/03/2019 GI bleed 12/31/2018 01/11/2019 Frequency of urination 03/19/201802/11 AVM (arteriovenous malformation) of colon 01/11/2019 documented as of this encounter (statuses as of 01/18/2023) [facility] Narrative* Problem Noted Date Diagnosed Date Resolved Date Elevated troponin 12/03/2022 12/11/2022 Closed left subtrochanteric femur fracture 07/22/2020 07/27/2020 Facial numbness 03/31/2019 04/03/2019 GI bleed 12/31/2018 01/11/2019 Frequency of urination 03/19/201802/11 AVM (arteriovenous malformation) of colon 01/11/2019 documented as of this encounter (statuses as of 01/18/2023) [facility] Narrative* Problem Noted Date Diagnosed Date Resolved Date Elevated troponin 12/03/2022 12/11/2022 Closed left subtrochanteric femur fracture 07/22/2020 07/27/2020 Facial numbness 03/31/2019 04/03/2019 GI bleed 12/31/2018 01/11/2019 Frequency of urination 03/19/201802/11 AVM (arteriovenous malformation) of colon 01/11/2019 documented as of this encounter (statuses as of 01/22/2023) [facility] Narrative* Problem Noted Date Diagnosed Date Resolved Date Elevated troponin 12/03/2022 12/11/2022 Closed left subtrochanteric femur fracture 07/22/2020 07/27/2020 Facial numbness 03/31/2019 04/03/2019 GI bleed 12/31/2018 01/11/2019 Frequency of urination 03/19/201802/11 AVM (arteriovenous malformation) of colon 01/11/2019 documented as of this encounter (statuses as of 01/31/2023) [facility] Narrative* Problem Noted Date Diagnosed Date Resolved Date Elevated troponin 12/03/2022 12/11/2022 Closed left subtrochanteric femur fracture 07/22/2020 07/27/2020 Facial numbness 03/31/2019 04/03/2019 GI bleed 12/31/2018 01/11/2019 Frequency of urination 03/19/201802/11 AVM (arteriovenous malformation) of colon 01/11/2019 documented as of this encounter (statuses as of 02/04/2023) [facility] Narrative* Problem Noted Date Diagnosed Date Resolved Date Elevated troponin 12/03/2022 12/11/2022 Closed left subtrochanteric femur fracture 07/22/2020 07/27/2020 Facial numbness 03/31/2019 04/03/2019 GI bleed 12/31/2018 01/11/2019 Frequency of urination 03/19/201802/11 AVM (arteriovenous malformation) of colon 01/11/2019 documented as of this encounter (statuses as of 03/17/2023) [facility] Narrative* Problem Noted Date Diagnosed Date Resolved Date Elevated troponin 12/03/2022 12/11/2022 Closed left subtrochanteric femur fracture 07/22/2020 07/27/2020 Facial numbness 03/31/2019 04/03/2019 GI bleed 12/31/2018 01/11/2019 Frequency of urination 03/19/201802/11 AVM (arteriovenous malformation) of colon 01/11/2019 documented as of this encounter (statuses as of 05/19/2023) [facility] Narrative* Problem Noted Date Diagnosed Date Resolved Date Elevated troponin 12/03/2022 12/11/2022 Closed left subtrochanteric femur fracture 07/22/2020 07/27/2020 Facial numbness 03/31/2019 04/03/2019 GI bleed 12/31/2018 01/11/2019 Frequency of urination 03/19/201802/11 AVM (arteriovenous malformation) of colon 01/11/2019 documented as of this encounter (statuses as of 05/28/2023) [facility] Narrative* Problem Noted Date Diagnosed Date Resolved Date Elevated troponin 12/03/2022 12/11/2022 Closed left subtrochanteric femur fracture 07/22/2020 07/27/2020 Facial numbness 03/31/2019 04/03/2019 GI bleed 12/31/2018 01/11/2019 Frequency of urination 03/19/201802/11 AVM (arteriovenous malformation) of colon 01/11/2019 documented as of this encounter (statuses as of 05/30/2023) [facility] Narrative* Problem Noted Date Diagnosed Date Resolved Date Elevated troponin 12/03/2022 12/11/2022 Closed left subtrochanteric femur fracture 07/22/2020 07/27/2020 Facial numbness 03/31/2019 04/03/2019 GI bleed 12/31/2018 01/11/2019 Frequency of urination 03/19/201802/11 AVM (arteriovenous malformation) of colon 01/11/2019 documented as of this encounter (statuses as of 06/02/2023) [facility] Narrative* Problem Noted Date Diagnosed Date Resolved Date Elevated troponin 12/03/2022 12/11/2022 Closed left subtrochanteric femur fracture 07/22/2020 07/27/2020 Facial numbness 03/31/2019 04/03/2019 GI bleed 12/31/2018 01/11/2019 Frequency of urination 03/19/201802/11 AVM (arteriovenous malformation) of colon 01/11/2019 documented as of this encounter (statuses as of 06/02/2023) [facility] Narrative* Problem Noted Date Diagnosed Date Resolved Date Elevated troponin 12/03/2022 12/11/2022 Closed left subtrochanteric femur fracture 07/22/2020 07/27/2020 Facial numbness 03/31/2019 04/03/2019 GI bleed 12/31/2018 01/11/2019 Frequency of urination 03/19/201802/11 AVM (arteriovenous malformation) of colon 01/11/2019 documented as of this encounter (statuses as of 06/05/2023) [facility] Narrative* Problem Noted Date Diagnosed Date Resolved Date Elevated troponin 12/03/2022 12/11/2022 Closed left subtrochanteric femur fracture 07/22/2020 07/27/2020 Facial numbness 03/31/2019 04/03/2019 GI bleed 12/31/2018 01/11/2019 Frequency of urination 03/19/201802/11 AVM (arteriovenous malformation) of colon 01/11/2019 documented as of this encounter (statuses as of 06/23/2023) [facility] Narr[facility]* Problem Noted Date Diagnosed Date Resolved Date Elevated troponin 12/03/2022 12/11/2022 Closed left subtrochanteric femur fracture 07/22/2020 07/27/2020 Facial numbness 03/31/2019 04/03/2019 GI bleed 12/31/2018 01/11/2019 Frequency of urination 03/19/201802/11 AVM (arteriovenous malformation) of colon 01/11/2019 documented as of this encounter (statuses as of 06/26/2023) [facility] Narrative* Problem Noted Date Diagnosed Date Resolved Date Elevated troponin 12/03/2022 12/11/2022 Closed left subtrochanteric femur fracture 07/22/2020 07/27/2020 Facial numbness 03/31/2019 04/03/2019 GI bleed 12/31/2018 01/11/2019 Frequency of urination 03/19/201802/11 AVM (arteriovenous malformation) of colon 01/11/2019 documented as of this encounter (statuses as of 07/01/2023) [facility] Narrative* Problem Noted Date Diagnosed Date Resolved Date Elevated troponin 12/03/2022 12/11/2022 Closed left subtrochanteric femur fracture 07/22/2020 07/27/2020 Facial numbness 03/31/2019 04/03/2019 GI bleed 12/31/2018 01/11/2019 Frequency of urination 03/19/201802/11 AVM (arteriovenous malformation) of colon 01/11/2019 documented as of this encounter (statuses as of 07/03/2023) [facility] Narrative* Problem Noted Date Diagnosed Date Resolved Date Elevated troponin 12/03/2022 12/11/2022 Closed left subtrochanteric femur fracture 07/22/2020 07/27/2020 Facial numbness 03/31/2019 04/03/2019 GI bleed 12/31/2018 01/11/2019 Frequency of urination 03/19/201802/11 AVM (arteriovenous malformation) of colon 01/11/2019 documented as of this encounter (statuses as of 07/15/2023) [facility] Narrative* Problem Noted Date Diagnosed Date Resolved Date Elevated troponin 12/03/2022 12/11/2022 Closed left subtrochanteric femur fracture 07/22/2020 07/27/2020 Facial numbness 03/31/2019 04/03/2019 GI bleed 12/31/2018 01/11/2019 Frequency of urination 03/19/201802/11 AVM (arteriovenous malformation) of colon 01/11/2019 documented as of this encounter (statuses as of 07/17/2023) [facility] Narrative* Problem Noted Date Diagnosed Date Resolved Date Elevated troponin 12/03/2022 12/11/2022 Closed left subtrochanteric femur fracture 07/22/2020 07/27/2020 Facial numbness 03/31/2019 04/03/2019 GI bleed 12/31/2018 01/11/2019 Frequency of urination 03/19/201802/11 AVM (arteriovenous malformation) of colon 01/11/2019 documented as of this encounter (statuses as of 07/18/2023) [facility] Narrative* Problem Noted Date Diagnosed Date Resolved Date Elevated troponin 12/03/2022 12/11/2022 Closed left subtrochanteric femur fracture 07/22/2020 07/27/2020 Facial numbness 03/31/2019 04/03/2019 GI bleed 12/31/2018 01/11/2019 Frequency of urination 03/19/201802/11 AVM (arteriovenous malformation) of colon 01/11/2019 documented as of this encounter (statuses as of 07/31/2023) [facility] Miscellaneous Notes* Telephone Encounter - Alyse Quinn - 12/03/2022 10:54 AM EDT Pt currently admitted to [facility] for blood clots in right lung. They did another US of his legs and they were cleared. documented in this encounterPromedica Flower Hospital08-18-2023 Miscellaneous Notes* Telephone Encounter - Bijal [...] transfusion not medically required. documented in this encounterPromedica Flower Hospital08-17-2023 Miscellaneous Notes* Telephone Encounter - Ary [...] here. Please advise pt documented in this encounterPromedica Flower Hospital08-16-2023 Miscellaneous Notes* Telephone Encounter - Quentin [...] advise Derek Horne MA documented in this encounterPromedica Flower Hospital08-16-2023 History of Present illness Narrative* Macie Thacker APRN.CYLINDER TESTER - 11/27/2022 12:54 PM EDT Virtualist Distance Health Note (CDM/TCM//CC HC/H@HCC escalations) I have communicated my name and active licensure. The patient's identity and physical location wereverified at the time of this visit. Either the patient or their legal fuels sales representative has been informed of the [...] in as Primary Virtualist, Secondary Virtualist, or [facility] Telehealth provider: Primary SIGNATURE: Macie Chatman APRN.CNP PATIENT NAME: Adina David DATE: November 27, 2022 documented in this encounterPromedica Flower Hospital08-15-2023 History of Present illness Narrative* Leslie [...] started 02/26/2022 08/14/2022 Treatment Complete Shahla Walker, RN FERRIC DERISOMALTOSE D1 3 of 3 cycles started 02/02/2021 11/16/2021 Other (=) Bismark James, Ej FERRIC CARBOXYMALTOSE 15 D1,8 4 of 4 cycles started 10/05/2019 02/02/2021 Other (non-formulary item)Yehuda Garrison, Ej FERRIC CARBOXYMALTOSE 15 D1,8 1 of 1 cycle started 07/27/2019 09/27/2019 Other Sheela Bray FERRIC CARBOXYMALTOSE 15 D1,8 3 of 3 cycles started 01/27/2019 07/27/2019 Other RehmusSheela Hooglestee FERRIC CARBOXYMALTOSE 15 D1,8 1 of 1 [...] CT A/P w/ IV contrast on 01/19/2022 ([facility]) Right inguinal hernia containing loops of bowel. [...] 08/28, and 10/10. 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 GIB - admitted to [facility] in 04/2021 with Hb 4.8, transfused [...] 08/16, 08/28, 10/10. He underwent endoscope at [facility] on 10/09/2022, found bleeders s/p endoscopic [...] minutes in consultation with him. Leslie Moon APRN.CYLINDER TESTER documented in this encounterPromedica Flower Hospital08-14-2023 Miscellaneous Notes* Telephone Encounter - Quentin Guidry RN - 11/25/2022 2:[address] Dale's request, Psychology (new patient exam) with Dr Yoselin Dobbs setup for 12/09/22, CT Chest scheduled for 02/24/23, Follow up OV scheduled for 03/05. Called pt to notify, pt verbalized understanding. Quentin Guidry LPN documented in this encounterPromedica Flower Hospital08-10-2023 Miscellaneous Notes* Telephone Encounter - Emilee [...] NEED for this medications. documented in this encounterPromedica Flower Hospital08-10-2023 History of Present illness Narrative* Ulises [...] Social History Social History Narrative WORKS A [employer] = [employer] 70[employer]78 LBS MON - FRI [...] TABLET Ulises Ramos DO documented in this encounterPromedica Flower Hospital08-08-2023 History of Present illness Narrative* Halle [...] Abs. Lymph 0.84 - 2.85 thou/cmm Abs. [place] 0.30 - 0.82 thou/cmm Abs. Eosin 0.04 [...] Lymph 1.00 - 4.00 k/uL 25.36 (H) [place]% % 1.0 Abs [place] <0.87 k/uL 0.36 Eosin% % 3.0 Abs [...] CT A/P w/ IV contrast on 01/19/2022 ([facility]) Right inguinal hernia containing loops of bowel. [...] 08/28, and 10/10. He underwent endoscope at [facility] on 10/09/2022, found bleeders s/p endoscopic [...] proportion; a sequence change of c. 1514G>A ([id number]) in exon 10 was detected at approximately [...] by urology 7. GIB - admitted to [facility] in 04/2021 with Hb 4.8, transfused [...] 08/16, 08/28, 10/10. He underwent endoscope at [facility] on 10/09/2022, found bleeders s/p endoscopic [...] Level: 4 - Moderate documented in this encounterPromedica Flower Hospital08-07-2023 Miscellaneous Notes* Telephone Encounter - Yuko [...] covid testing previously placed. documented in this encounterPromedica Flower Hospital08-05-2023 Miscellaneous Notes* Telephone Encounter - Bertha [...] handled on the weekend but that Dr. Dael already handled this on Friday with the [...] me and hang up. documented in this encounterPromedica Flower Hospital08-04-2023 Miscellaneous Notes* Telephone Encounter - Halle [...] EDT [facility] [place] pt [facility] requesting an early refill on [...] in) Derek Horne MA documented in this encounterPromedica Flower Hospital08-04-2023 Miscellaneous Notes* Telephone Encounter - Peter [...] him until his appointment. documented in this encounterPromedica Flower Hospital08-01-2023 Miscellaneous Notes* Telephone Encounter - Ary Araujo Ma - 11/12/2022 2:05 PM EDT Spoke to patient. He verified faxing lab results to [facility], Michelle. Richard placed Covid test order for patient. Informed patient he can schedule an appointment through [facility] to have his Covid test done.He might wait till his appointment with Richard. Faxed lab results to [phone]. * Telephone Encounter - Guerline Alex - [...] his lab results faxed to MICHELLE at [facility], fax number: [phone] attn: Dr. Milner documented in this encounterPromedica Flower Hospital07-27-2023 Miscellaneous Notes* Telephone Encounter - Librado MYERS Thi - 11/07/2022 1:26 PM EDT Items addressed in this encounter: Telephone Encounter Thi Snyder CMA November 07, 2022 1:26 PM * [...] also his visit yesterday w/Dr. Guidry. Justyna [facility] Patient Outreach Team documented in this encounterPromedica Flower Hospital07-26-2023 Miscellaneous Notes* Telephone Encounter - Fidencio Mon RN - 11/06/2022 11:49 AM EDT Pt had a visit with provider today. Fidencio Mon RN documented in this encounterPromedica Flower Hospital07-13-2023 Miscellaneous Notes* Telephone Encounter - Derek [...] well Derek Horne MA documented in this encounterPromedica Flower Hospital07-13-2023 History of Present illness Narrative* Wilton Palma RN - 10/24/2022 10:35 AM EDT CDM Telephonic Outreach Provider Action/FYI CDM: CKD Left a message, Instructed to call PCP with any symptom or condition changes. Contacted for: Routine Telephonic Outreach Contact made with patient: No, left message. Wilton Palma RN October 24, 2022 10:36 AM documented in this encounterPromedica Flower [facility] History of Present illness Narrative* Wilton [...] 22, 2022 5:07 PM documented in this encounterPromedica Flower Hospital07-07-2023 Miscellaneous Notes* Telephone Encounter - Halle [...] stow. 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 Андрей w specialists DO Ulises Perdomo DO documented in this encounterPromedica Flower Hospital07-06-2023 Miscellaneous Notes* Telephone Encounter - [place] [...] done 10/09/22. Pt can be reached at [phone]. Please review. documented in this encounterPromedica Flower Hospital07-06-2023 History of Present illness Narrative* RT [...] 17, 2022 2:46 PM documented in this encounterPromedica Flower Hospital07-06-2023 History of Present illness Narrative* Halle Dale MD - 10/17/2022 10:48 AM EDT PROGRESS NOTE 10/17/2022 Chief Complaint: Mr. Adina David is here to follow up his hematological conditions (CLL, MPN, VTE, bleeding) Interval History: He remains on hydrea 1000 mg daily. Remains on Eliquis 2.5 mg BID. He underwent endoscope at [facility] last week, found bleeding source s/p endoscopic [...] Abs. Lymph 0.84 - 2.85 thou/cmm Abs. [place] 0.30 - 0.82 thou/cmm Abs. Eosin 0.04 [...] Lymph 1.00 - 4.00 k/uL 28.70 (H) [place]% % 1.0 Abs [place] <0.87 k/uL 0.38 Eosin% % 0.0 Abs [...] CT A/P w/ IV contrast on 01/19/2022 ([facility]) Right inguinal hernia containing loops of bowel. [...] 08/28, and 10/10. He underwent endoscope at [facility] on 10/09/2022, found bleeders s/p endoscopic [...] proportion; a sequence change of c. 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 GIB - admitted to [facility] in 04/2021 with Hb 4.8, transfused [...] 08/16, 08/28, 10/10. He underwent endoscope at [facility] on 10/09/2022, found bleeders s/p endoscopic [...] Level: 4 - Moderate documented in this encounterPromedica Flower Hospital07-05-2023 Miscellaneous Notes* Telephone Encounter - Jenn Cari Pedroza - 10/16/2022 4:57 PM EDT Pt has appt tomorrow, 10/17 Requested Prescriptions Pending Prescriptions Disp Refills omeprazole (PRILOSEC) 40 mg capsule [Pharmacy Med Name: Omeprazole 40 MG Oral Capsule Delayed Release] 90 capsule 3 Sig: Take 1 capsule by mouth once daily Please review and advise. Jenn Alcala Ma documented in this encounterPromedica Flower Hospital06-29-2023 Miscellaneous Notes* Telephone Encounter - Derek [...] Friday. Derek Horne MA documented in this encounterPromedica Flower Hospital06-29-2023 Evaluation note* Diagnosis Stage 3 chronic kidney disease, unspecified whether stage 3a or 3b CKD (HCC)- Primary Acute blood loss anemia Acute posthemorrhagic anemia Severe anemia Other iron deficiency anemia documented in this encounter [facility] Nurse Note* Desire Croft LPN - [...] Instructions REFERRAL (RECOMMENDATION): None documented in this encounterPromedica Flower Hospital06-28-2023 History and physical note * Hortencia [...] DATE: 10/09/2022 TIME: 1701 documented in this encounterPromedica Flower Hospital06-22-2023 Miscellaneous Notes* Telephone Encounter - Bailey Fox MA - 10/03/2022 10:25 AM EDT Spoke with pt informed him of Dr. Gallardo's message, sent instructions via . Pt verbalized understanding. documented in this encounterPromedica Flower Hospital06-21-2023 Miscellaneous Notes* Telephone Encounter - Deysi [...] have family/friend present for procedure transport home:Patient/patient fuels sales representative was told that if they [...] area. Any barriers to Patient learning: Patient/Patient Food Chemist responded appropriately on phone. Type of instruction given: Verbal by telephone contact. DEYSI Licona RN documented in this encounterPromedica Flower Hospital06-15-2023 Miscellaneous Notes* Telephone Encounter - Halle aDle MD - 09/26/2022 8:34 AM EDT Spoke with Yecenia Watersy. No need for blood transfusion for now. I will follow up on endoscope finding. * Telephone Encounter - Derek Horne MA - 09/25/2022 2:05 PM EDT Pt came by to see what you thought in regards to his lab results given that he is going in for his procedure soon. Derek Horne MA documented in this encounterPromedica Flower Hospital06-06-2023 Miscellaneous Notes* Telephone Encounter - Halle Dale MD - 09/17/2022 5:14 PM EDT We will transfuse if Hb<8. Please let him know. * Telephone Encounter - Derek Horne MA - 09/17/2022 11:38 AM EDT Pt wanted to know if he could get more blood since after his second unit he was only up to 8.5 Derek Horne MA documented in this encounterPromedica Flower Hospital06-05-2023 History of Present illness Narrative* Wilton [...] pounds in a week? No Based on canoe builder, the following disposition is advised: No symptoms or symptoms present, not severe. Routed to: No Action Needed NYDIA Education Provided this Outreach: No Wilton Palma RN September 16, 2022 10:34 AM documented in this encounterPromedica Flower Hospital05-09-2023 History of Present illness Narrative* Halle [...] FOR WHEEZING 9 g 0 evolocumab (REPATHA SUREMARKOICK) 140 mg/mL pen injector Inject 140 mg [...] Abs. Lymph 0.84 - 2.85 thou/cmm Abs. [place] 0.30 - 0.82 thou/cmm Abs. Eosin 0.04 [...] Lymph 1.00 - 4.00 k/uL 31.03 (H) [place]% % 1.0 Abs [place] <0.87 k/uL 0.43 Eosin% % 0.0 Abs [...] are mildly decreased in size compared to 2021. Partially imagedlymph nodes in the upper abdomen [...] CT A/P w/ IV contrast on 01/19/2022 ([facility]) Right inguinal hernia containing loops of bowel. [...] proportion; a sequence change of c. 1514G>A ([id number]) in exon 10 was detected at approximately [...] by urology 7. GIB - admitted to [facility] in 04/2021 with Hb 4.8, transfused [...] Level: 4 - Moderate documented in this encounterPromedica Flower Hospital05-08-2023 Miscellaneous Notes* Telephone Encounter - Derek [...] best option or not documented in this encounterPromedica Flower Hospital05-04-2023 History of Present illness Narrative* Wilton Palma RN - 08/15/2022 11:58 AM EDT CDM Telephonic Outreach Provider Action/FYI : Routed updates to Dr. Ramos CDM: CKD Spk with Pt he denies new or worsening Urinary/ CKD symptoms Pt has Appt with Dr.Charles Sorensen Pulmonology with [facility], Pt is in process of scheduling a sleep study at [facility]. Pt reports will have a blood [...] to talk about today? Yes Based on canoe builder, the following disposition is advised: Symptoms present, not severe. Routed to: No Action Needed NYDIA Education Provided this Outreach: No Wilton Palma RN August 15, 2022 12:27 PM documented in this encounterPromedica Flower Hospital05-02-2023 History of Present illness Narrative* Deysi [...] 2022 TIME: 9:06 AM documented in this encounterPromedica Flower Hospital05-01-2023 Miscellaneous Notes* Telephone Encounter - Derek [...] 8.1 Derek Horne MA documented in this encounterPromedica Flower Hospital04-26-2023 Instructions* Patient Instructions* Hortencia Gallardo MD [...] you do not have a responsible local hazmat driver (family member or friend) withyou to take you home, your exam cannot be done with sedation and will be cancelled. Please bring a list of all of your current medications, including any Lwtv-srz-Fdbmglu medications with you. Medications If you take [...] your exam. 2 03/2019 documented in this encounterPromedica Flower Hospital04-26-2023 History of Present illness Narrative* Hortencia Gallardo MD - 08/07/2022 10:00 AM EDT SMALL BOWEL DISEASES AND NUTRITION FOLLOW-UP VISIT Date of direct communication: 08/07/2022 [x] I have communicated my name and active licensure. The patient's identity and physical location were verified at the time of this visit. Either the patientor their legal fuels sales representative has been informed of the [...] FOLLOW-UP: Post-procedure Hortencia Gallardo MD 08/07/2022 Staff [facility] Sales Representative, [facility] [place] PRIMARY PROBLEM: iron def anemia, small bowel [...] 2019: 1st gastric image: 1st duodenal image: 1st cecal image:does not reach the cecum in 13 hours and 19 minutes GET: SBTT:n/a TTT: Prep: Fair Gastric images are [...] co- ordination of care. documented in this encounterPromedica Flower Hospital04-24-2023 Miscellaneous Notes* Telephone Encounter - Jana [...] good idea. Please advise. documented in this encounterPromedica Flower Hospital04-21-2023 Miscellaneous Notes* Telephone Encounter - Halle [...] results. Derek Horne MA documented in this encounterPromedica Flower Hospital04-20-2023 Miscellaneous Notes* Telephone Encounter - Marlene Cabezas - 08/01/2022 10:23 AM EDT Sleep Medicine Referral information submitted to [facility]. Ref# [id number]. [facility] Specialty office will call the patient within 7-10 business days to set this appointment up. documented in this encounterPromedica Flower Hospital04-17-2023 Miscellaneous Notes* Telephone Encounter - Halle [...] mg. Derek Horne MA documented in this encounterPromedica Flower Hospital04-13-2023 Miscellaneous Notes* Telephone Encounter - Darrell Cabezas - 07/25/2022 1:41 PM EDT Order, last office note, and demographics were faxed to Dr Rios as requested * Telephone Encounter - Bernarda Sarah RN - 07/25/2022 12:25 PM EDT Patient requests a referral to pulmonology Dr. Pagan at [phone]. documented in this encounterPromedica Flower Hospital04-13-2023 Miscellaneous Notes* Telephone Encounter - Yuko Lauren RN - 07/25/2022 11:08 AM EDT Updated message on cover my meds: Your request has been approved Yuko Lauren RN * Telephone Encounter - Yuko Lauren RN - 07/25/2022 11:04 AM EDT Prior auth for Kenji submitted on cover my meds website. End message as follows: Your information has been submitted to [employer] Part D. [facility] Part D will review the request and will issue a decision, typically within 1-3 days from your submission. You can check the updated outcome later by reopening this request. If [facility] Medicare Part D has not responded in 1-3 days or if you have any questions about your ePA request, please contact [facility] Medicare Part D at [phone]. If you think there may be a problem with your PA request, use our live chat feature at the bottom right Yuko Lauren RN documented in this encounterPromedica Flower Hospital04-10-2023 Miscellaneous Notes* Telephone Encounter - Pratibha Haque MA - 07/22/2022 9:05 AM EDT Patient scheduled 07/30. * Telephone Encounter - Ulises Ramos DO - 07/22/2022 7:37 AM EDT Get him a fu next week to review the pft and discuss all his other stuff as well documented in this encounterPromedica Flower Hospital04-07-2023 Miscellaneous Notes* Telephone Encounter - Fidencio Mon RN - 07/19/2022 10:16 AM EDT Pt scheduled for virtual visit on 08/07/22 to discuss POC. Fidencio Mon RN * Telephone Encounter - Tereza Sunshine - 07/11/2022 10:46 AM EDT 07/11/[address] Gallardo, Jeison Hare MD put patient back on Eliquis for DVT Tereza documented in this encounterPromedica Flower Hospital04-03-2023 History of Present illness Narrative* Sean [...] treatment was advised. He was admitted to [facility] in October 2018 with chest tightness [...] Dr. Gruber Patient transitioned his care to dc in March 2019. Patient had a mechanical [...] hydroxyurea PAST CARDIAC HISTORY: CAD status post [place], October 2018 status post LAD stent Hypertension [...] Lymph 1.00 - 4.00 k/uL 37.53 (H) [place]% % 2.0 Abs [place] <0.87 k/uL 0.84 Eosin% % 0.0 Abs [...] 3 mm x 22 mm everolimus [place] chromium stent to his LAD. S/p plavix [...] Sean Mays MD, FACC documented in this encounterPromedica Flower Hospital04-03-2023 Nurse Note* Gayle Ramires MA - 07/15/2022 10:11 AM EDT Patient has no cardiac complaints today. Gayle Ike ROBOTIC WELDING OPERATOR documented in this encounterPromedica Flower Hospital04-03-2023 Miscellaneous Notes* Addendum Note - Ulises [...] for 1 mos supply documented in this encounterPromedica Flower Hospital03-30-2023 Miscellaneous Notes* Telephone Encounter - Thi Snyder Ma - 07/11/2022 10:[address] Gallardo office notified and sent message to her. Items addressed in this encounter: Telephone Encounter Thi Snyder Ma July 11, 2022 10:47 AM 10:47 AM * Telephone Encounter - Darrell Cabezas - 07/11/2022 10:[address] Gallardo and let her know I have to put him back on eliquis for a new dvt. I am checking his hemoglobin in two weeks. 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 Notified of test results and Dr Mays's recommendations. Pt voices understanding. Yuko Lauren RN * Telephone Encounter - Sean Mays MD - 07/04/2022 11:02 AM EDT Excellent lipid panel with LDL of 40. Continue with Repatha. Thanks documented in this encounterPromedica Flower Hospital03-23-2023 Miscellaneous Notes* Telephone Encounter - Tereza Sunshine - 07/04/2022 9:44 AM EDT 07/04/22 Patient calling to talk to Dr Gallardo if she has communicated with with him PCP to find out what the next step is going to be. 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 Deep vein thrombosis (DVT) of left lower extremity, unspecified chronicity, unspecified vein (HCC) - ICD9: 453.40, ICD10: I82.402 - [id number] BL - US DVT LOWER LT 3. Localized swelling, mass and lump, left upper limb - ICD9: 782.2, ICD10: R22.32 - US DVT LOWER LT 4. History of colonic polyps - ICD9: V12.72, ICD10: Z86.010 - COLONOSCOPY SCREENING Ulises Ramos DO documented in this encounterPromedica Flower Hospital03-20-2023 Miscellaneous Notes* Telephone Encounter - Essie Rivera LPN - 07/01/2022 11:29 AM EDT Pharmacy [employer] message requesting the following refill Refill(s) Requested: Requested Prescriptions Pending Prescriptions Disp Refills zolpidem (AMBIEN) 5 mg tablet [Pharmacy Med Name: Zolpidem Tartrate 5 MG Oral Tablet] 30 tablet 0 Sig: TAKE 1 TABLET BY MOUTH ONCE DAILY AT BEDTIME NEEDED FOR UP TO 30 DAYS ALLERGIES Allergen Reactions Doxycycline Intolerance Rash, diarrhea Penicillin Hives Penicillin V Potass* Other: See Comments (home) [phone] (cell) Last Office Visit Date: 06/21/2022 Last Distance Health Visit: Visit date not found Future Appointment: 09/17/2022 The patients preferred pharmacy has been captured for this encounter? yes Request is for script(s) to be escript to pharmacy. Essie Rivera LPN documented in this encounterPromedica Flower Hospital03-17-2023 Miscellaneous Notes* Telephone Encounter - Alexia [...] see Dr's Pt does not want a ANNEALER HELPER or PA Please advise, Notify Pt documented in this encounterPromedica Flower Hospital03-15-2023 History of Present illness Narrative* Isa Ayesha, PT - 06/26/2022 7:47 PM EDT Episode [...] created on 03/18/22 through 05/17/22-extended through 07/30/22 [place] in home exercise program.-Progressing Patient will decrease [...] 45 Sia Hodge PT documented in this encounterPromedica Flower Hospital03-14-2023 History of Present illness Narrative* Wilton Palma RN - 06/25/2022 9:40 AM EDT INSIGHT CDM TELEPHONIC OUTREACH Provider Action/FYI: CDM: CKD 2nd Call, left a message to verify symptom status, instructed to call PCP with any changes in condition or needs. Contact made with patient: No - Left message Anderson my name is Wilton Palma RN your Credit Verifier from the [facility] I am callingtoday for your bi-weekly [...] Palma RN - 06/24/2022 9:20 AM EDT INSIGHT CDM TELEPHONIC OUTREACH Provider Action/FYI: CDM: CKD Left a message to verify symptom status, instructed to call PCP with any changes in condition or needs. Contact made with patient: No - Left message Hello my name is Witlon Palma RN your Credit Verifier from the [facility] I am callingtoday for your bi-weekly [...] 24, 2022 9:20 AM documented in this encounterPromedica Flower Hospital03-13-2023 History of Present illness Narrative* Kaleigh [...] 45 Kaleigh Mueller PTA documented in this encounterPromedica Flower Hospital03-10-2023 History of Present illness Narrative* Halle Dale MD - 06/21/2022 10:20 AM EST PROGRESS NOTE 06/21/2022 Chief Complaint: Mr. Adina David is here to follow up his hematological conditions (CLL, MPN, VTE, bleeding) Interval History: He is on hydrea 500 mg twice daily. Reports doing well overall. He follows GI at [facility]. No further GIB. Supposed to start octreotide [...] daily. ergocalciferol 50,000 unit capsule (VITAMIN D2, MACEYOL) once every month. calcium carbonate (CALCIUM ANTACID) [...] Abs. Lymph 0.84 - 2.85 thou/cmm Abs. [place] 0.30 - 0.82 thou/cmm Abs. Eosin 0.04 [...] Lymph 1.00 - 4.00 k/uL 37.53 (H) [place]% % 2.0 Abs [place] <0.87 k/uL 0.84 Eosin% % 0.0 Abs [...] CT A/P w/ IV contrast on 01/19/2022 ([facility]) Right inguinal hernia containing loops of bowel. 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 GIB - admitted to [facility] in 04/2021 with Hb 4.8, transfused [...] Level: 4 - Moderate documented in this encounterPromedica Flower Hospital03-08-2023 History of Present illness Narrative* Sia [...] 45 Sia Hodge PT documented in this encounterPromedica Flower Hospital03-03-2023 History of Present illness Narrative* Sia [...] 50 Sia Hodge PT documented in this encounterPromedica Flower Hospital03-03-2023 Miscellaneous Notes* Telephone Encounter - Bernarda Sarah RN - 06/14/2022 12:20 PM EST Elieser's requests chart notes discussing the use and benefit of CPAP. Can you addend this in his last office visit? Please fax to [phone]. documented in this encounterPromedica Flower Hospital03-01-2023 History of Present illness Narrative* Sia [...] 45 Sia Hodge PT documented in this encounterPromedica Flower Hospital02-28-2023 Instructions* Patient Instructions* Destin Jacinto - [...] in clinic as needed documented in this encounterPromedica Flower Hospital02-28-2023 History of Present illness Narrative* Buffy [...] polyp in D2, appears hyperplastic Rhodes's esophagus, Blodgett class C0M2. Biopsies taken to rule out [...] review including available outside records, performing the [id number] history and physical exam, and documenting the encounter in the EMR including the time spent by Dr. Yonas Oro. 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 [...] ICD9: 490, ICD10: J40 Will tx w lizzie Ulises Ramos DO documented in this encounterPromedica Flower Hospital02-20-2023 History of Present illness Narrative* Sia [...] 45 Sia Hodge PT documented in this encounterPromedica Flower Hospital02-17-2023 History of Present illness Narrative* Sia [...] created on 03/18/22 through 05/17/22-extended through 07/30/22 [place] in home exercise program.-Progressing Patient will decrease [...] Patient to be seen for Therapeutic exercise (08375), Neuromuscular re-education (92761), Manual therapy (94955), Therapeutic activities (12371), Self-intermediate management (93965), Gait Training (92038), Patient/Family/Caregiver Education PLAN FOR NEXT VISIT: general [...] 45 Sia Hodge PT documented in this encounterPromedica Flower Hospital02-09-2023 History of Present illness Narrative* Wilton [...] like to speak with a social work bakery team leader to help give you support [...] you up for automated weekly questionnaires through [employer]. This is an easy way for us [...] 23, 2022 10:11 AM documented in this encounterPromedica Flower Hospital02-08-2023 Miscellaneous Notes* Telephone Encounter - Essie Rivera LPN - 05/22/2022 3:20 PM EST Pharmacy [employer] message requesting the following refill Refill(s) Requested: Requested Prescriptions Pending Prescriptions Disp Refills zolpidem (AMBIEN) 5 mg tablet [Pharmacy Med Name: Zolpidem Tartrate 5 MG Oral Tablet] 30 tablet 0 Sig: TAKE 1 TABLET BY MOUTH ONCE DAILY AT BEDTIME NEEDED FOR UP TO 30 DAYS ALLERGIES Allergen Reactions Doxycycline Intolerance Rash, diarrhea Penicillin Hives Penicillin V Potass* Other: See Comments (home) [phone] (cell) Last Office Visit Date: 03/22/2022 Last [facility] Visit: Visit date not found Future Appointment: 06/21/2022 The patients preferred pharmacy has been captured for this encounter? yes Request is for script(s) to be escript to pharmacy. Essie Rivera LPN documented in this encounterPromedica Flower Hospital01-31-2023 Miscellaneous Notes* Telephone Encounter - Pari [...] advise. Pari Pickett Ma documented in this encounterPromedica Flower Hospital01-17-2023 Miscellaneous Notes* Telephone Encounter - Vivian Galvin RN - 04/30/2022 1:22 PM EST PT wanted to know if Dr. Gallardo had reviewed his most recent blood work results from 04/23/22 to see if he is doing better and his bleeding is improving. Has had several iron infusions. Let him know would ask MD. Vivian Galvin RN documented in this encounterPromedica Flower Hospital01-10-2023 Miscellaneous Notes* Telephone Encounter - Vivian [...] cost less money. Patient documented in this encounterPromedica Flower Hospital01-05-2023 History of Present illness Narrative* Wilton Palma RN - 04/18/2022 1:06 PM EST INSIGHT CDM TELEPHONIC OUTREACH Provider Action/FYI: CDM: CKD Left a message to verify symptom status and needs, Instructed to call PCP with any changes in condition Contact made with patient: No - Left message Hello my name is Wilton Palma, RN your Credit Verifier from the [facility] I am callingtoday for your bi-weekly check in. I am sorry I missed your call. I will reach out to you again tomorrow. (if the third call I will reach out to you again next week) Enter next patient outreach date for the following using the Track Pt Outreach. End outreach. Wilton Palma RN April 18, 2022 1:06 PM documented in this encounterPromedica Flower Hospital01-04-2023 Miscellaneous Notes* Telephone Encounter - Annmarie [...] Provider: ANNMARIE RONQUILLO PA-C documented in this encounterPromedica Flower Hospital01-04-2023 History of Present illness Narrative* Renuka Concepcion, RT(R) - 04/17/2022 1:10 PM EST Radiology Service [...] IV DATA: Not applicable SIGNED BY: RT Vandana(R) April 17, 2022 1:16 PM documented in this encounterPromedica Flower Hospital01-04-2023 Instructions* Patient Instructions* Annmarie Ronquillo PA-C - 04/17/2022 11:19 AM EST For X-rays, go to: [facility], [facility] [place] [address] Call [phone] Imaging Friday: Closed Friday: 7 a.m. - 6:30 p.m. Friday: 7 a.m. - 6:30 p.m. Friday: 7 a.m. - 6:30 p.m. : 7 a.m. - 6:30 p.m. Friday: 7 a.m. - 6:30 p.m. Friday: 8 a.m. - Noon documented in this encounterPromedica Flower Hospital01-04-2023 History of Present illness Narrative* Annmarie Ronquillo PA-C - 04/17/2022 11:08 AM EST This note was created using [employer]. 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 Completed questions in [employer] PA system and sent to insurance, will await next steps. Vivian Galvin RN documented in this [facility]12-22-2022 Miscellaneous Notes* Telephone Encounter - Derek Horne MA - 04/04/2022 4:39 PM EST Pt informed. Derek Horne MA * Telephone Encounter - Halle Dale MD - 04/04/2022 12:19 PM EST I wrote back to his GI doc. Waiting for her to put in the orders for sandostatin LAR, then we can schedule monthly injection at [facility]. Please let him know. Thanks * Telephone Encounter - Derek Horne MA - 04/04/2022 11:09 AM EST Pt called to see if Dr Dale heard from his doctor recently about switching medications to Sandostatin to help with the bleeding in his intestines. Derek Horne MA documented in this [facility]12-21-2022 History of Present illness Narrative* Sia Hodge, [...] 43 Sia Hodge PT documented in this encounterPromedica Flower Hospital12-21-2022 Miscellaneous Notes* Telephone Encounter - Essie Rivera LPN - 04/03/2022 10:52 AM EST Pharmacy [employer] [facility] [employer] message requesting the following refill Refill(s) Requested: Requested Prescriptions Pending Prescriptions Disp Refills zolpidem (AMBIEN) 5 mg tablet [Pharmacy Med Name: Zolpidem Tartrate 5 MG Oral Tablet] 30 tablet 0 Sig: TAKE 1 TABLET BY MOUTH ONCE DAILY AT BEDTIME FOR UP TO 30 DAYS ALLERGIES Allergen Reactions Doxycycline Intolerance Rash, diarrhea Penicillin Hives Penicillin V Potass* Other: See Comments (home) [phone] (cell) Last Office Visit Date: 03/22/2022 Last [facility] Emergency Department Health Visit: Visit date not found Future Appointment: 06/21/2022 The patients preferred pharmacy has been captured for this encounter? yes Request is for script(s) to be escript to pharmacy. Essie Rivera LPN documented in this encounterPromedica Flower Hospital12-14-2022 History of Present illness Narrative* Hortencia [...] needed -Start Sandostatin LAR 20mg monthly with sedimentationist -If Hgb can be maintained with the [...] loss Hortencia Gallardo MD 03/27/22 0[facility] Sales Representative [facility] , REFERRING PROVIDER: Aly Tadeo [facility] [id number] REASON FOR REFERRAL: Small bowel bleeding HISTORY: [...] past year -Hgb checked monthly, most recently 12 - ferritin 122, Hgb 11.6 -No overt [...] when he goes to appointments. Attends Right Fit class twice a week. Doing PT. -10 [...] of records, and documentation. documented in this encounterPromedica Flower Hospital12-12-2022 History of Present illness Narrative* Kaleigh Mueller, MAYITO - 03/25/2022 10:14 AM EST Episode Visit [...] 43 Kaleigh Mueller PTA documented in this encounterPromedica Flower Hospital12-09-2022 History of Present illness Narrative* Halle [...] had US kidney and CT abdomen at [facility] to monitor his kidney cancer with negative [...] once daily 90 tablet 3 evolocumab (REPATHA SUREMARKOICK) 140 mg/mL pen injector Inject 1 pen [...] Abs. Lymph 0.84 - 2.85 thou/cmm Abs. [place] 0.30 - 0.82 thou/cmm Abs. Eosin 0.04 [...] Lymph 1.00 - 4.00 k/uL 31.18 (H) [place]% % 17.2 Abs [place] <0.87 k/uL 7.96 (H) Eosin% % 0.2 [...] CT A/P w/ IV contrast on 01/19/2022 ([facility]) Right inguinal hernia containing loops of bowel. 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 GIB - admitted to [facility] in 04/2021 with Hb 4.8, transfused [...] Level: 4 - Moderate documented in this encounterPromedica Flower Hospital12-08-2022 Miscellaneous Notes* Telephone Encounter - Roland Borges Ma - 03/21/2022 9:04 AM EST Called patient and left message that their test results are viewable on [employer] Glass, if they have any questions to call the office. Roland Borges MA * Telephone Encounter - Roland Borges Ma - 03/21/2022 9:04 AM EST ----- Message from Loy Mcallister MD sent at 03/21/2022 9:02 AM EST ----- Notify patient PSA remains stable at 5.28. documented in this encounterPromedica Flower Hospital12-05-2022 History of Present illness Narrative* Wilton [...] like to speak with a social work bakery team leader to help give you support [...] you up for automated weekly questionnaires through [employer]. This is an easy way for us [...] my name is Wilton Palma RN your Credit Verifier from the [facility] I am callingtoday for your bi-weekly [...] 14, 2022 11:10 AM documented in this encounterPromedica Flower Hospital12-05-2022 Miscellaneous Notes* Telephone Encounter - Alison [...] Penicillin V Potass* Other: See Comments (home) [phone] (cell) Last Office Visit Date: 12/20/2021 Last [facility] Emergency Department Health Visit: Visit date not found Future Appointment: 03/22/2022 The patients preferred pharmacy has been captured for this encounter? yes Request is for script(s) to be escript to pharmacy. Alison Ibarra RN documented in this encounterPromedica Flower Hospital11-09-2022 Miscellaneous Notes* Telephone Encounter - Courtney Montana Pss - 02/20/2022 5:14 PM EST Referral information submitted to [facility]. Ref# [id number]. [facility] Specialty office will call the patient within 7-10 business days to set this appointment up. * Telephone Encounter - Juana Guerra RN - 02/20/2022 2:23 PM EST Patient requesting order for physical therapy following hernia repair surgery. documented in this encounterPromedica Flower Hospital11-04-2022 Miscellaneous Notes* Telephone Encounter - Cherri Contreras - 02/15/2022 12:24 PM EDT Andie from Dr. [facility] of[facility] called and wanted you to look at pt's CT. He has swollen kidney. Would like pt to see you roque. Mari Fenton documented in this encounterPromedica Flower Hospital11-02-2022 Miscellaneous Notes* Telephone Encounter - Derek Horne MA - 02/13/2022 2:16 PM EDT Pt came in to let us know he had emergency hernia surgery 01/20/22 and blood work he stated the US showed something on his L Ureter. He wanted to keep Dr Dale in the loop. Derek Horne MA documented in this encounterPromedica Flower Hospital11-02-2022 History of Present illness Narrative* RT [...] 13, 2022 10:10 AM documented in this encounterPromedica Flower Hospital2022 History of Present illness Narrative* Louie Silva RN - 02/06/2022 10:25 AM EDT INSIGHT CDM TELEPHONIC OUTREACH Provider Action/FYI: Routed updates to Dr. Ramos- No action required Spk with Pt he reports 01/19/22 had severe Right Abd/ groin pain, squad called Pt was transported [facility]. Pt reports underwent Hernia repair on [...] chills. Pt had a CT while at [facility] and is has contacted his Assistant Branch Manager for a follow up Appt related to [...] like to speak with a social work bakery team leader to help give you support [...] you up for automated weekly questionnaires through [employer] for [employer] Glass. This is an easy way for us [...] 06, 2022 10:25 AM documented in this encounterPromedica Flower Hospital10-13-2022 Miscellaneous Notes* Telephone Encounter - Emilee [place] [...] wants him to do? documented in this encounterPromedica Flower Hospital10-06-2022 Instructions* Patient Instructions* Loy Mcallister MD - 01/17/2022 3:33 PM EDT Its good to see you today. Please continue with a PSA every 6 months. I'll see you annually provided your symptoms are stable. documented in this encounterPromedica Flower Hospital10-06-2022 History of Present illness Narrative* Loy Mcallister MD - 01/17/2022 2:57 PM EDT Images from the original note were not included. [facility] [place] ESTABLISHED PATIENT OFFICE VISIT HISTORY OF PRESENT [...] extrapolated by contextual derivation. documented in this encounterPromedica Flower Hospital10-06-2022 Miscellaneous Notes* Telephone Encounter - Ashley Li Cma - 01/17/2022 9:44 AM EDT Patient called stated he was planning on having labs done and was wondering if you wanted another PSA done any time soon.Please advise. Ashley Li Cma documented in this encounterCleveland [id number] Miscellaneous Notes* Telephone Encounter - Pratibha Haque MA - 01/16/2022 9:27 AM EDT Separate [employer] message sent to [facility]. Added in other message that this picture was sent in. documented in this encounterPromedica Flower Hospital09-15-2022 Miscellaneous Notes* Telephone Encounter - Quyen Thomason Cma - 12/27/2021 2:50 PM EDT Called patient and left a voicemail notifying patient that I would send him a message in [employer] with results. Quyen Thomason Cma * Telephone [...] PSA stable at 6.95 documented in this encounterPromedica Flower Hospital09-07-2022 History of Present illness Narrative* Louie [...] like to speak with a social work bakery team leader to help give you support [...] you up for automated weekly questionnaires through [employer]. This is an easy way for us [...] 19, 2021 3:50 PM documented in this encounterPromedica Flower Hospital08-31-2022 History of Present illness Narrative* Wilbert Watkins MD - 12/12/2021 4:00 PM EDT VIRTUAL VISIT PROGRESS NOTE This is a virtual visit using [employer] for [employer] video visit. It required patient-provider interaction for [...] to the hospital with presyncope. Admitted to [facility], transfused 7 units pRBC, Hgb of [...] Mr. David, a capsule endoscopy performed at [facility] revealed small bowel angioectasias. Some of [...] PACCevaluation as well as clearance from his administration assistant particularly if the stress test is indicated. Mr. David I will discuss this further early next week. I spent a total of 40 minutes on the date of the service which included preparing to see the patient and [id number] patient care documented in this encounterPromedica Flower Hospital08-26-2022 History of Present illness Narrative* Sia Hodge, [...] 43 Sia Hodge PT documented in this encounterPromedica Flower Hospital08-23-2022 Miscellaneous Notes* Telephone Encounter - Karina Delgado [facility] - 12/04/2021 12:35 PM EDT Patient called our office today as he said that he was [facility] for a scope forhis bleeding lesions. I asked him more information on if he needs to see a surgeon or a GI doctor. He wasn't sure. He will call Dr. Morrow's office to find out. I provided him our office number if heneeds surgery evaluation and provided him the GI Scheduling line if he needs GI. documented in this encounterPromedica Flower Hospital08-22-2022 History of Present illness Narrative* Ulises Olivier Richard, DO - 12/03/2021 2:16 PM EDT Here for chronic diarrhea, GI doc [facility] but the diarrhea persists. 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 [...] Kidney Injury) ([facility]) - 01/07/2019 (D priority) Vitamin D Deficiency [...] TABLET Ulises Ramos DO documented in this encounterPromedica Flower Hospital08-20-2022 History of Present illness Narrative* Sia Hodge [...] 43 Sia Hodge PT documented in this encounterPromedica Flower Hospital08-11-2022 Miscellaneous Notes* Telephone Encounter - Alison [...] Doxycycline Intolerance Rash, diarrhea Penicillin Hives (home) [phone] (cell) Last Office Visit Date: 09/19/2021 Last [facility] Emergency Department Health Visit: Visit date not found Future Appointment: 12/20/2021 The patients preferred pharmacy has been captured for this encounter? yes Request is for script(s) to be escript to pharmacy. Alison bIarra RN documented in this encounterPromedica Flower Hospital08-08-2022 Miscellaneous Notes* Telephone Encounter - Derek [...] him. Derek Horne MA documented in this encounterPromedica Flower Hospital08-08-2022 History of Present illness Narrative* Kaleigh [...] 43 Kaleigh Mueller PTA documented in this encounterPromedica Flower Hospital08-04-2022 History of Present illness Narrative* Louie Silva RN - 11/15/2021 3:14 PM EDT INSIGHT CDM TELEPHONIC OUTREACH Provider Action/FYI: Call to Pt left a message to verify CKD or other symptoms or concerns. Contact made with patient: No - Left message Anderson my name is Wilton Palma RN your Credit Verifier from the [facility] I am callingtoday for your bi-weekly [...] RN - 11/13/2021 4:08 PM EDT INSIGHT CD TELEPHONIC OUTREACH Provider Action/FYI: Call to Pt left a message to verify CKD or other symptoms or concerns. Contact made with patient: No - Left message Hello my name is Wilton Palma RN your Credit Verifier from the [facility] I am callingtoday for your bi-weekly [...] 13, 2021 4:08 PM documented in this encounterPromedica Flower Hospital08-01-2022 History of Present illness Narrative* Heaven [...] 43 Heaven Shelley PTA documented in this encounterPromedica Flower Hospital07-27-2022 Miscellaneous Notes* Telephone Encounter - Kendy [...] ER. Patient states he isn't even in [place] at the present time. * Telephone Encounter [...] pcp. Pt states he is established at [place] with Dr. Roman and that Dr. Roman is his back up because Dr. Ramos is booked to [facility] out. Pt wants to see Dr. Roman for chronic diarrhea for 3 weeks. Was Patient Referred to [facility]/Seek Emergency Treatment (Y/N): NA Did Patient Agree (Y/N): NA Was An Attempt Made To Transfer The Patient To The Office (Y/N): NA Were You Able To Reach Someone At The Office (Y/N): NA If Yes - Patient Was Transferred To (Caregivers Name): NA If No - Which [facility] Leadership Income Tax Adjuster Did You Speak With Regarding This Patient: NA Was an appointment scheduled (Y/N): [id number] denied due to symptoms Reason patient was requesting visit (RFV/signs and symptoms/diagnosis) : Chronic diarrhea Person calling if other than patient: patient Return call to if other than patient: patient Best contact number: [phone] Thank you, Sierra Concepcion November 07, 2021 12:32 PM documented in this encounterPromedica Flower Hospital07-15-2022 History of Present illness Narrative* Louie Silva RN - 2021 12:18 PM EDT PRIMARY CARE COORDINATION QUICK NOTE Provider Action/FYI Opened in error Patient identified by name and date . Wilton Palma RN 2021 12:18 PM documented in this encounterPromedica Flower Hospital07-15-2022 History of Present illness Narrative* Louie Silva RN - 2021 12:14 PM EDT INSIGHT CDM TELEPHONIC OUTREACH Provider Action/FYI: Call to Pt left a message to verify CKD or other symptoms or concerns. Contact made with patient: No - Left message Anderson my name is Wilton Palma RN your Credit Verifier from the [facility] I am callingtoday for your bi-weekly check in. I am sorry I missed your call. I will reach out to you again tomorrow. (if the third call I will reach out to you again next week) Enter next patient outreach date for the following day using the Track Pt Outreach. End outreach. Wilton Palma RN 2021 12:14 PM documented in this encounterPromedica Flower Hospital07-15-2022 Miscellaneous Notes* Telephone Encounter - Alison Ibarra RN - 2021 8:27 AM EDT Pharmacy requesting the following refill Refill(s) Requested: Pending Prescriptions Disp Refills HYDROXYUREA 500 MG CAPSULE 180 capsule 0 Sig: TAKE 3 CAPSULES BY MOUTH ONCE DAILY JEOVANNY: Yes ALLERGIES Allergen Reactions Doxycycline Intolerance Rash, diarrhea Penicillin Hives (home) [phone] (cell) Last Office Visit Date: 09/19/2021 Last [facility] Emergency Department Health Visit: Visit date not found Future Appointment: 12/20/2021 The patients preferred pharmacy has been captured for this encounter? yes Request is for script(s) to be escript to pharmacy. Alison Ibarra RN documented in this encounterPromedica Flower Hospital07-15-2022 Miscellaneous Notes* Telephone Encounter - Pratibha [...] accordingly. Pratibha Barba LPN documented in this encounterPromedica Flower Hospital07-14-2022 Miscellaneous Notes* Telephone Encounter - Courtney Montana Pss - 10/25/2021 1:24 PM EDT Referral information submitted to [facility]. Ref# [id number]. [facility] office will call the patient [...] sleep specialist. * Telephone Encounter - Thi Snyder Ma - 10/23/2021 5:10 PM EDT Pt [...] at his appointment yesterday. documented in this encounterPromedica Flower Hospital07-14-2022 Miscellaneous Notes* Telephone Encounter - Bernarda Sarah RN - 10/25/2021 11:03 AM EDT Patient notified. * Telephone Encounter - Ary Araujo Ma - 10/25/2021 10:57 AM EDT ----- Message from Ulises Ramos DO sent at 10/24/2021 7:56 AM EDT ----- All labs are normal, notify patient documented in this encounterPromedica Flower Hospital07-13-2022 Miscellaneous Notes* Telephone Encounter - Derek [...] .) Derek Horne MA documented in this encounterPromedica Flower Hospital07-13-2022 History of Present illness Narrative* Heaven Shelley [...] 38 Heaven Shelley PTA documented in this encounterPromedica Flower Hospital07-11-2022 History of Present illness Narrative* Ulises Ramos, - 10/22/2021 2:21 PM EDT Here to [...] Social History 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 hydroxyurea [...] (DVT) of left lower extremity, unspecified vein ([facility]) - ICD9: 453.40,ICD10: I82.402 - C. DIFFICILE PCR 3. Iron deficiency anemia due to chronic blood loss - ICD9: 280.0, ICD10: D50.0 - CBC + DIFF - IRON + TIBC DO Ulises Perdomo DO documented in this encounterPromedica Flower Hospital07-11-2022 History of Present illness Narrative* Heaven Shelley, SPRAYER HAND - 10/22/2021 10:11 AM EDT Episode Visit [...] 38 Heaven Shelley PTA documented in this encounterPromedica Flower Hospital07-07-2022 Miscellaneous Notes* Telephone Encounter - Derek [...] Horne MA - 10/18/2021 1:41 PM EDT [facility] pharmacy in [place] called they received the zolpidem 5mg prescription the pt states 5mg doesn't work and he needs 10mg do you want to send a new script for 10mg? Derek Horne MA documented in this encounterPromedica Flower Hospital07-07-2022 Miscellaneous Notes* Telephone Encounter - Lolis [...] accordingly. Lolis Lazaro LPN documented in this encounterPromedica Flower Hospital07-07-2022 Miscellaneous Notes* Telephone Encounter - Halle Dale MD - 10/18/2021 8:59 AM EDT Orders are placed. documented in this [facility]07-06-2022 Miscellaneous Notes* Telephone Encounter - Annmarie Ronquillo PA-C - 10/17/2021 8:31 AM EDT Message sent to patient via [employer] for Google Glass: Dear Anderson Billingsley, my name is Annmarie Shima and I am covering for Ulises Ramos DO. I saw your message from yesterday. Yes your hemoglobin was only 7.2. It looks like you were able toarrange a transfusion through your sedimentationist Dr. Dale? Please let me know [facility]. I hope you are feeling better soon. Regards, Annmarie Ronquillo PA-C * Telephone Encounter - Angy Avelar - 10/17/2021 8:14 AM EDT Regarding recent labs. Angy Avelar documented in this encounterPromedica Flower Hospital07-05-2022 History of Present illness Narrative* Halle Dale MD - 10/16/2021 10:14 PM EDT Derek, please schedule 1 unit pRBC transfusion. Orders are in. Thank you documented in this encounterPromedica Flower Hospital06-30-2022 Miscellaneous Notes* Telephone Encounter - Alison Ibarra RN - 10/11/2021 1:05 PM EDT Pharmacy requesting the following refill Refill(s) Requested: Pending Prescriptions Disp Refills ZOLPIDEM 5 MG TABLET 30 tablet 0 Sig: TAKE 1 TABLET BY MOUTH ONCE DAILY AT BEDTIME NEEDED FOR UP TO 30 DAYS WENDY Class: C-IV JEOVANNY: Yes ALLERGIES Allergen Reactions Doxycycline Intolerance Rash, diarrhea Penicillin Hives (home) [phone] (cell) Last Office Visit Date: 09/19/2021 Last Distance Health Visit: Visit date not found Future Appointment: 12/20/2021 The patients preferred pharmacy has been captured for this encounter? yes Request is for script(s) to be escript to pharmacy. Alison Ibarra RN documented in this encounterPromedica Flower Hospital06-30-2022 Miscellaneous Notes* Telephone Encounter - Bernarda [...] thinners. He will be flying out to [place] on 10/25. Made an appointment for him with Dr. Ramos on 10/22. However, if possible he would still like to speak to a nurse or Dr. Ramos before the appointment. Please advise. Thank you! documented in this encounterPromedica Flower Hospital06-29-2022 Miscellaneous Notes* Telephone Encounter - Shahla [...] amlodipine. Shahla Prakash LPN documented in this [facility]06[facility] History of Present illness Narrative* Louie Silva [...] like to speak with a social work bakery team leader to help give you support [...] you up for automated weekly questionnaires through [employer]. This is an easy way for us [...] 10, 2021 1:13 PM documented in this encounterPromedica Flower Hospital06-28-2022 Miscellaneous Notes* Telephone Encounter - Halle [...] 10/25. Derek Horne MA documented in this encounterPromedica Flower Hospital06-28-2022 History of Present illness Narrative* Sia Hodge, PT - 10/09/2021 11:49 AM EDT Episode [...] created on 07/06/21 through 09/03/21-extended through 12/08/21 [place] in home exercise program. ONGOING Patient will [...] Patient to be seen for Neuromuscular re-education (96500);Therapeutic exercise (86201);Manual therapy (45323);Therapeutic activities (76977);Gait Training (58081);Patient/Family/Caregiver Education;E-Stim Unattended (25471) PLAN FOR NEXT VISIT: strength and conditioning, balance SUBJECTIVE: Patient Reason for Visit: L LE and deconditioning. States that he is doing better, but is still unable to balance on the left lower extremity and notes decreased strength throughout the left lower extremity. He also states that he took himself off of his eliquis and has a planned flightin October to [place]. I discussed the importance of letting his [...] 43 Sia Hodge PT documented in this encounterPromedica Flower Hospital06-23-2022 Miscellaneous Notes* Telephone Encounter - Pratibha Barba LPN - 10/04/2021 8:50 AM EDT I called and spoke to and informed him of Melissa's response to lab results and recommendations. Patient voiced understanding. Pratibha Barba LPN * Telephone Encounter - Pratibha Barba LPN - 10/04/2021 8:46 AM EDT ----- Message from Melissa Raymond APRN.CYLINDER TESTER sent at 10/04/2021 8:40 AM EDT ----- Please call the patient, and let them know the results of the blood work is amazing with repatha injection No change in medical treatment at this time. Please keep all appointments as scheduled. documented in this encounterPromedica Flower Hospital06-22-2022 History of Present illness Narrative* Heaven Shelley, MAYITO - 10/03/2021 10:47 AM EDT Episode Visit [...] 43 Heaven Shelley PTA documented in this encounterPromedica Flower Hospital06-21-2022 History of Present illness Narrative* Melissa Raymond APRN.[facility] - 10/02/2021 1:30 PM EDT PRIMARY CARE PHYSICIAN: Ulises Ramos [address] [place] [address] Chief Complaint Patient presents with: CARD Follow [...] found to be anemic, was admitted to [facility] and underwent GI evaluation with endoscopic [...] ago, but is going to ask his Manufacturing Project Manager to see if he should continue. apixaban [...] further coordination of care. documented in this encounterPromedica Flower Hospital06-21-2022 Nurse Note* Pratibha Barba LPN - 10/02/2021 1:17 PM EDT Patient c/o SOB with activity and increased fatigue. documented in this encounterPromedica Flower Hospital06-17-2022 Miscellaneous Notes* Telephone Encounter - Delaney Turk RPh - 09/28/2021 3:40 PM EDT Pharmacy-Reviewed Medication History Patient Name:Linda David : 1955 Patient Contact Attempt: First attempt Adherence Packing Program Accepted? No, patient does not wish to participate. Patient is not interested at the time wants to stay at [facility] and decrease his meds. Gave him our phone number to reach out in case he is ever interested, thank you! Delaney Tukr, PharmD, [facility] Adherence Pharmacy [phone] documented in this encounterPromedica Flower Hospital06-15-2022 Miscellaneous Notes* Telephone Encounter - Halle [...] traveling and will beflying over 8,000 feet. [phone]. Elsie Gallo MA documented in this encounterPromedica Flower Hospital06-15-2022 History of Present illness Narrative* Louie Silva RN - 09/26/2021 11:22 AM EDT INSIGHT CDM TELEPHONIC OUTREACH Provider Action/FYI: Call to Pt left a message to verify CKD or other symptoms or needs. Encouraged adequate hydration with hot / humid weather. Contact made with patient: No - Left message Hello my name is Wilton Palma RN your Credit Verifier from the [facility] I am callingtoday for your bi-weekly [...] 27, 2021 10:32 AM documented in this encounterPromedica Flower Hospital06-15-2022 History of Present illness Narrative* Heaven Shelley PTA - 09/26/2021 10:48 AM EDT Episode Visit [...] 40 Heaven Shelley PTA documented in this encounterPromedica Flower Hospital06-13-2022 History of Present illness Narrative* Heaven [...] 40 Heaven Shelley PTA documented in this encounterPromedica Flower Hospital06-08-2022 History of Present illness Narrative* Halle Dale MD - 09/19/2021 11:32 AM EDT PROGRESS NOTE Adina Zachary Frankie 1955 September 19, 2021 SYNOPSIS 1. 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 glovre Diverticulitis of intestine with perforation 2004 WITH [...] ago, but is going to ask his Manufacturing Project Manager to see if he should continue. BABY [...] Abs. Lymph 0.84 - 2.85 thou/cmm Abs. [place] 0.30 - 0.82 thou/cmm Abs. Eosin 0.04 [...] k/uL 5.93 (H) 17.61 (H) 8.02 (H) [place]% % 35.2 1.0 31.6 Abs [place] <0.87 k/uL 4.76 (H) 0.25 4.88 (H) Eosin% % 0.3 0.0 0.1 Abs Eosin <0.46 k/uL 0.04 0.00 <0.03 Baso% % 0.3 0.0 0.1 Abs Baso <0.11 k/uL 0.04 0.00 <0.03 Conception% % Component Latest Ref Rng & Units [...] proportion; a sequence change of c. 1514G>A (p.Dep182Jcb) in exon 10 was detected at approximately [...] Level: 4 - Moderate documented in this encounterPromedica Flower Hospital06-02-2022 History of Present illness Narrative* Sierra Ortiz, [...] 40 Sierra Ortiz PT documented in this encounterPromedica Flower Hospital06-02-2022 Miscellaneous Notes* Telephone Encounter - Love PINA - 09/13/2021 10:11 AM EDT Spoke with patient and he understood the psa in October and possible mri He said that his urinary symptoms have subsided about 50% and I informed him that if they didn't get better to call us and we can have him come in for a urine check * Telephone Encounter - Love Mon COORD - 09/13/2021 10:11 AM EDT ----- Message [...] get his urine checked. 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 BABY [...] FREE Ulises Ramos DO documented in this encounterPromedica Flower Hospital05-31-2022 History of Present illness Narrative* Kristal [...] as well. - Registration link sent to: [email or web address] Patient identified by name and date of . Patient Attributed To: QAE Payer: ACO ([facility]) Reason for review or outreach: Contract Priority Patient qualifies for ACO Ecosystem outreach Contact made with Patient: Yes Spoke to patient. Patient identified by name and . Hi my name is Kristal De Leon RN and I am calling from the [facility]. Because you receive care from Ulises [...] First, please know that care is available 24/ through your PCP's office. Unless you are experiencing a life-threatening emergency, contact your primary care provider first. They will assess for the appropriate place for care, schedule appointments, and connect you to a provider if appropriate. PCPoffice number provided to the patient- [phone]. For non-urgent requests, you or a family member can also message your PCP on LynxFit for Google Glass. Do you have access to your MyChart account? Y For life-threatening emergencies, go to the [facility] emergency department or call 911. PCP/Specialist [...] reaching out to you by phone or LynxFit for Google Glass message to set up a time to review your medications. If you already see someone from our pharmacy team, that person will reach out to you. They will also request that you have your prescriptions filled by a [facility]. The reason for this is to allow us to more fully help you manage your medications and your disease conditions in the most comprehensive way. It also allows Ulises Ramos DO to have the most up to date access to your medication information. To learn more about [facility] locations and services, visit our website at [email or web address] or call [phone] ([phone]). RX Consult to outpatient pharmacy placed- Reason [...] routines. Can we connect you with a [facility] Principal Data Architect to find a program that could help you meet your goals? No Clarity- Managing your health can be stressful, and to support you in your wellness journey the [facility] offers an emotional health and well-being [...] participate in this program? Patient agreeable to iogyn Y E-mail confirmed: [email or web address] Registration link sent to Patient: [email or web address] encounter to : P Wellness ECoaching- Indicate ACO Patient & which program they are interested in (Clarity) Add comment to Action/FYI PCSW- We would like to make sure you have what you need so that your basics needs are met - including your personal safety, food, housing and medications. Would you like to speak with a social work bakery team leader to help give you support for any of these needs? No BHSW- It can be normal to feel anxious or down during a time like this. Would you like to talk to amental health professional about how you have been feeling? No Action Taken: No action taken Kristal De Leon RN September 11, 2021 10:41 AM documented in this encounterPromedica Flower Hospital05-31-2022 Evaluation note* Diagnosis Stage 3 chronic kidney disease, unspecified whether stage 3a or 3b CKD (HCC)- Primary documented in this encounter [facility] Miscellaneous Notes* Telephone Encounter - Loraine [...] regards to urine frequency. documented in this encounterPromedica Flower Hospital05-25-2022 History of Present illness Narrative* Heaven [...] 40 Heaven Shelley PTA documented in this encounterPromedica Flower Hospital05-19-2022 History of Present illness Narrative* Loy [...] like to speak with a social work bakery team leader to help give you support [...] you up for automated weekly questionnaires through [employer] for Google Glass. This is an easy way for us [...] RN - 08/29/2021 10:37 AM EDT INSIGHT CD TELEPHONIC OUTREACH Provider Action/FYI: Call to Pt left a message to verify CKD or other symptom status and needs. Contact made with patient: No - Left message Anderson my name is Wilton Palma RN your Credit Verifier from the [facility] I am calling today for your bi-weekly check in. I am sorry I missed your call. I will reach out to you again tomorrow. (if the third call I will reach out to you again next week) Enter next patient outreach date forthe following using the Track Pt Outreach. End outreach. Wilton Palma RN August 29, 2021 10:37 AM documented in this encounterPromedica Flower Hospital05-18-2022 History of Present illness Narrative* Heaven [...] 45 Heaven Shelley PTA documented in this encounterPromedica Flower Hospital05-16-2022 History of Present illness Narrative* Sierra [...] of Care: created on 07/06/21 through 09/03/21 [place] in home exercise program. ONGOING Patient will [...] Patient to be seen for Neuromuscular re-education (93306);Therapeutic exercise (73465);Manual therapy (82202);Therapeutic activities (16747);Gait Training (13408);Patient/Family/Caregiver Education;E-Stim Unattended (06713) PLAN FOR NEXT VISIT: strength and conditioning, [...] 40 Sierra Ortiz PT documented in this encounterPromedica Flower Hospital05-10-2022 Miscellaneous Notes* Telephone Encounter - Rosalinda Melchor LPN - 08/21/2021 8:44 AM EDT Pharmacy faxed requesting the following refill Refill(s) Requested: Pending Prescriptions Disp Refills DOXYCYCLINE HYCLATE 100 MG CAPSULE 60 capsule 0 Sig: Take 1 capsule by mouth twice daily for 7 days JEOVANNY: Yes ALLERGIES Allergen Reactions Doxycycline Intolerance Rash, diarrhea Penicillin Hives (home) [phone] (cell) Last Office Visit Date: 07/17/2021 Last [facility] Health Visit: Visit date not found Future Appointment: Visit date not found The patients preferred pharmacy has been captured for this encounter? yes Request is for script(s) to be escript to pharmacy. Rosalinda Melchor LPN documented in this encounterPromedica Flower Hospital05-04-2022 Miscellaneous Notes* Telephone Encounter - Lani [...] MRI of his prostate. documented in this encounterPromedica Flower Hospital05-03-2022 Miscellaneous Notes* Telephone Encounter - Alison [...] it. Derek Horne MA documented in this encounterPromedica Flower Hospital05-03-2022 History of Present illness Narrative* Heaven [...] 45 Heaven Shelley PTA documented in this encounterPromedica Flower Hospital05-02-2022 History of Present illness Narrative* Louie [...] like to speak with a social work bakery team leader to help give you support [...] you up for automated weekly questionnaires through [employer] for Google Glass. This is an easy way for us [...] 13, 2021 12:48 PM documented in this encounterPromedica Flower Hospital04-28-2022 Miscellaneous Notes* Telephone Encounter - Ary Araujo Ma - 08/09/2021 2:47 PM EDT Medical supplies and equipment form placed on Richard's desk. documented in this encounterPromedica Flower Hospital04-28-2022 History of Present illness Narrative* Sierra [...] of Care: created on 07/06/21 through 09/03/21 [place] in home exercise program. ONGOING Patient will [...] Patient to be seen for Neuromuscular re-education (56541);Therapeutic exercise (37496);Manual therapy (11958);Therapeutic activities (61745);Gait Training (60674);Patient/Family/Caregiver Education;E-Stim Unattended (71384) PLAN FOR NEXT VISIT: strength and conditioning, [...] 40 Sierra Ortiz PT documented in this encounterPromedica Flower Hospital04-25-2022 History of Present illness Narrative* Louie Silva RN - 08/06/2021 12:50 PM EDT INSIGHT [facility] TELEPHONIC OUTREACH Provider Action/FYI: Call to Pt left a message to verify CKD or other symptom concerns. Contact made with patient: No - Left message Hello my name is Wilton Palma RN your Credit Verifier from the [facility] I am calling today for your bi-weekly check in. I am sorry I missed your call. I will reach out to you again tomorrow. (if the third call I will reach out to you again next week) Enter next patient outreach date forthe following using the Track Pt Outreach. End outreach. Wilton Palma RN August 06, 2021 12:50 PM documented in this encounterPromedica Flower Hospital04-20-2022 Miscellaneous Notes* Telephone Encounter - Ulises Ramos DO - 08/01/2021 4:08 PM EDT Will do * Telephone Encounter - Bernarda Sarah RN - 08/01/2021 3:24 PM EDT Insurance will not pay for omeprazole 20 mg BID. They prefer to pay for once daily dosing. Would 40mg once daily be appropriate? If so, please send in a new rx. documented in this encounterPromedica Flower Hospital04-20-2022 History of Present illness Narrative* Heaven [...] 40 Heaven Shelley PTA documented in this encounterPromedica Flower Hospital04-18-2022 History of Present illness Narrative* Heaven [...] 45 Heaven Shelley PTA documented in this encounterPromedica Flower Hospital04-15-2022 Miscellaneous Notes* Telephone Encounter - Symone Izabel - 07/27/2021 5:41 PM EDT Referral submitted to [facility] Contact Center ([phone]). They will contact the patient to schedule.Confirmation number: [id number] Initial consult ENT H92.01 Right ear pain J34.89 Nasal sore Medicare Sandra documented in this encounterPromedica Flower Hospital04-15-2022 History of Present illness Narrative* Sierra Ortiz PT - 07/27/2021 10:51 AM EDT Episode [...] and gait training SUBJECTIVE: Feels good today. [place] pretty worn out after last PT session [...] 40 Sierra Ortiz PT documented in this encounterPromedica Flower Hospital04-14-2022 History of Present illness Narrative* Louie Silva RN - 07/26/2021 10:10 AM EDT INSIGHT CDM TELEPHONIC OUTREACH Provider Action/FYI: Call to Pt left a message to verify CKD or other symptom status or needs. Contact made with patient: No - Left message Anderson my name is Wilton Palma RN your Credit Verifier from the [facility] I am calling today for your bi-weekly check in. I am sorry I missed your call. I will reach out to you again tomorrow. (if the third call I will reach out to you again next week) Enter next patient outreach date forthe following using the Track Pt Outreach. End outreach. Wilton Palma RN July 26, 2021 10:10 AM documented in this encounterPromedica Flower Hospital04-13-2022 Miscellaneous Notes* Telephone Encounter - Odilon Puentes - 07/25/2021 1:40 PM EDT Mon form on pcp desks for review and sign documented in this encounterPromedica Flower Hospital04-13-2022 History of Present illness Narrative* Heaven [...] 40 Heaven Shelley PTA documented in this encounterPromedica Flower Hospital04-08-2022 Miscellaneous Notes* Telephone Encounter - Halle Dale MD - 07/20/2021 2:59 PM EDT I called Mr. David. No need for iron infusion. Continue oral iron and hydrea as prescribed. 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 Derek Horne MA documented in this encounterPromedica Flower Hospital04-08-2022 History of Present illness Narrative* Eileen [...] 45 Eileen Medrano PTA documented in this encounterPromedica Flower Hospital04-06-2022 Instructions* Patient Instructions* Loy Mcallister MD - 07/18/2021 2:20 PM EDT It was great to see you today! Please get a PSA prior to seeing me in 6 months. Lets try some oxybutynin at night. documented in this encounterPromedica Flower Hospital04-06-2022 History of Present illness Narrative* Loy Mcallister MD - 07/18/2021 2:05 PM EDT Images from the original note were not included. [facility] [place] ESTABLISHED PATIENT OFFICE VISIT HISTORY OF PRESENT [...] extrapolated by contextual derivation. documented in this encounterPromedica Flower Hospital04-04-2022 Miscellaneous Notes* Telephone Encounter - Love Nielsen - 07/16/2021 7:31 AM EDT Spoke w/pt to reschedule today's appt. Pt wanted me to schedule him w/dr. West at . I advised pt I was unable to. Pt hung up, I called back and lvm to call w/any quest and reschedule appt at our office. Love Nielsen MA documented in this encounterPromedica Flower Hospital03-30-2022 History of Present illness Narrative* Louie [...] from Ulises Ramos DO office at the [facility]. I am a RN Credit Verifier with our [employer] Chronic Disease Management program. [...] few questions once a week through your LynxFit for Google Glass account. It will automatically show up for you to complete. There are simple questions that will help us identify if you have any concerns or symptoms and I will call you to help get what you need. We will be able to connect you, review your symptoms, do an on demand visit, or communicate with Ulises Ramos, DO if needed. I am going to [...] 11, 2021 1:31 PM documented in this encounterPromedica Flower Hospital03-30-2022 Evaluation note* Diagnosis Stage 3 chronic kidney disease, unspecified whether stage 3a or 3b CKD (HCC)- Primary documented in this encounter [facility]03[facility] History of Present illness Narrative* Sia Hodge [...] of Care: created on 07/06/21 through 09/03/21 [place] in home exercise program. Patient will decrease [...] Planned: 16 Planned Treatment Interventions: Neuromuscular re-education (67445);Therapeutic exercise (02138);Manual therapy (43653);Therapeutic activities (00028);Gait Training (08623);Patient/Family/Caregiver Education;E-Stim Unattended (91560) PLAN FOR NEXT VISIT: proximal hip strengthening/LE flexibility/balance and gait training Patient demonstrates good understanding of plan of care and treatment. The above goals and plan of care were discussed and agreed upon by patient/family. SUBJECTIVE: Adina David is a 65 year old male seen today for Deconditioning and left LE Pain. [facility] We had to stop PT in Apr/May due to significant drop in hemoglobin and then he was admitted to [facility] for COVID and a GI bleed. 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 documented as of this encounter (statuses as of 07/09/2021) [place] [address]-10-2021 History of Past illness Narrative* Problem Noted Date Resolved Date Closed left subtrochanteric femur fracture 07/2207/27/2020 Facial numbness 03/31/2019 04/03/2019 GI bleed 12/31/2018 01/11/2019 Frequency of urination 03/19/2018 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 documented as of this encounter (statuses as of 07/11/2021) [address]10-[address]21 History of Past illness Narrative* Problem Noted Date Resolved Date Closed left subtrochanteric femur fracture 07/2207/27/2020 Facial numbness 03/31/2019 04/03/2019 GI bleed 12/31/2018 01/11/2019 Frequency of urination 03/19/2018 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 documented as of this encounter (statuses as of 07/16/2021) [address]10-[address]21 History of Past illness Narrative* Problem Noted Date Resolved Date Closed left subtrochanteric femur fracture 07/2207/27/2020 Facial numbness 03/31/2019 04/03/2019 GI bleed 12/31/2018 01/11/2019 Frequency of urination 03/19/2018 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 documented as of this encounter (statuses as of 07/18/2021) [address]10[address]21 History of Past illness Narrative* Problem Noted Date Resolved Date Closed left subtrochanteric femur fracture 07/2207/27/2020 Facial numbness 03/31/2019 04/03/2019 GI bleed 12/31/2018 01/11/2019 Frequency of urination 03/19/2018 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 documented as of this encounter (statuses as of 07/20/2021) [address]21 History of Past illness Narrative* Problem Noted Date Resolved Date Closed left subtrochanteric femur fracture 07/2207/27/2020 Facial numbness 03/31/2019 04/03/2019 GI bleed 12/31/2018 01/11/2019 Frequency of urination 03/19/2018 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 documented as of this encounter (statuses as of 07/20/2021) [address]10[address]21 History of Past illness Narrative* Problem Noted Date Resolved Date Closed left subtrochanteric femur fracture 07/2207/27/2020 Facial numbness 03/31/2019 04/03/2019 GI bleed 12/31/2018 01/11/2019 Frequency of urination 03/19/2018 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 documented as of this encounter (statuses as of 07/25/2021) [address]21 History of Past illness Narrative* Problem Noted Date Resolved Date Closed left subtrochanteric femur fracture 07/2207/27/2020 Facial numbness 03/31/2019 04/03/2019 GI bleed 12/31/2018 01/11/2019 Frequency of urination 03/19/2018 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 documented as of this encounter (statuses as of 07/25/2021) [address]21 History of Past illness Narrative* Problem Noted Date Resolved Date Closed left subtrochanteric femur fracture 07/2207/27/2020 Facial numbness 03/31/2019 04/03/2019 GI bleed 12/31/2018 01/11/2019 Frequency of urination 03/19/2018 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 documented as of this encounter (statuses as of 07/26/2021) [address]21 History of Past illness Narrative* Problem Noted Date Resolved Date Closed left subtrochanteric femur fracture 07/2207/27/2020 Facial numbness 03/31/2019 04/03/2019 GI bleed 12/31/2018 01/11/2019 Frequency of urination 03/19/2018 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 documented as of this encounter (statuses as of 07/26/2021) [address]21 History of Past illness Narrative* Problem Noted Date Resolved Date Closed left subtrochanteric femur fracture 07/2207/27/2020 Facial numbness 03/31/2019 04/03/2019 GI bleed 12/31/2018 01/11/2019 Frequency of urination 03/19/2018 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 documented as of this encounter (statuses as of 07/27/2021) [address]10-[address]21 History of Past illness Narrative* Problem Noted Date Resolved Date Closed left subtrochanteric femur fracture 07/2207/27/2020 Facial numbness 03/31/2019 04/03/2019 GI bleed 12/31/2018 01/11/2019 Frequency of urination 03/19/2018 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 documented as of this encounter (statuses as of 07/27/2021) [address]21 History of Past illness Narrative* Problem Noted Date Resolved Date Closed left subtrochanteric femur fracture 07/2207/27/2020 Facial numbness 03/31/2019 04/03/2019 GI bleed 12/31/2018 01/11/2019 Frequency of urination 03/19/2018 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 documented as of this encounter (statuses as of 07/30/2021) [address]10-[address]21 History of Past illness Narrative* Problem Noted Date Resolved Date Closed left subtrochanteric femur fracture 07/2207/27/2020 Facial numbness 03/31/2019 04/03/2019 GI bleed 12/31/2018 01/11/2019 Frequency of urination 03/19/2018 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 documented as of this encounter (statuses as of 08/01/2021) [address]21 History of Past illness Narrative* Problem Noted Date Resolved Date Closed left subtrochanteric femur fracture 07/2207/27/2020 Facial numbness 03/31/2019 04/03/2019 GI bleed 12/31/2018 01/11/2019 Frequency of urination 03/19/2018 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 documented as of this encounter (statuses as of 08/02/2021) [address]21 History of Past illness Narrative* Problem Noted Date Resolved Date Closed left subtrochanteric femur fracture 07/2207/27/2020 Facial numbness 03/31/2019 04/03/2019 GI bleed 12/31/2018 01/11/2019 Frequency of urination 03/19/2018 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 documented as of this encounter (statuses as of 08/07/2021) [address]21 History of Past illness Narrative* Problem Noted Date Resolved Date Closed left subtrochanteric femur fracture 07/2207/27/2020 Facial numbness 03/31/2019 04/03/2019 GI bleed 12/31/2018 01/11/2019 Frequency of urination 03/19/2018 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 documented as of this encounter (statuses as of 08/09/2021) [address]10-2021 History of Past illness Narrative* Problem Noted Date Resolved Date Closed left subtrochanteric femur fracture 07/2207/27/2020 Facial numbness 03/31/2019 04/03/2019 GI bleed 12/31/2018 01/11/2019 Frequency of urination 03/19/2018 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 documented as of this encounter (statuses as of 08/09/2021) [address]-2021 History of Past illness Narrative* Problem Noted Date Resolved Date Closed left subtrochanteric femur fracture 07/2207/27/2020 Facial numbness 03/31/2019 04/03/2019 GI bleed 12/31/2018 01/11/2019 Frequency of urination 03/19/2018 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 documented as of this encounter (statuses as of 08/13/2021) [address]-2021 History of Past illness Narrative* Problem Noted Date Resolved Date Closed left subtrochanteric femur fracture 07/2207/27/2020 Facial numbness 03/31/2019 04/03/2019 GI bleed 12/31/2018 01/11/2019 Frequency of urination 03/19/2018 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 documented as of this encounter (statuses as of 08/14/2021) [address]10-2021 History of Past illness Narrative* Problem Noted Date Resolved Date Closed left subtrochanteric femur fracture 07/2207/27/2020 Facial numbness 03/31/2019 04/03/2019 GI bleed 12/31/2018 01/11/2019 Frequency of urination 03/19/2018 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 documented as of this encounter (statuses as of 08/14/2021) [address]-2021 History of Past illness Narrative* Problem Noted Date Resolved Date Closed left subtrochanteric femur fracture 07/2207/27/2020 Facial numbness 03/31/2019 04/03/2019 GI bleed 12/31/2018 01/11/2019 Frequency of urination 03/19/2018 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 documented as of this encounter (statuses as of 08/14/2021) [address]-2021 History of Past illness Narrative* Problem Noted Date Resolved Date Closed left subtrochanteric femur fracture 07/2207/27/2020 Facial numbness 03/31/2019 04/03/2019 GI bleed 12/31/2018 01/11/2019 Frequency of urination 03/19/2018 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 documented as of this encounter (statuses as of 08/15/2021) [address]-2021 History of Past illness Narrative* Problem Noted Date Resolved Date Closed left subtrochanteric femur fracture 07/2207/27/2020 Facial numbness 03/31/2019 04/03/2019 GI bleed 12/31/2018 01/11/2019 Frequency of urination 03/19/2018 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 documented as of this encounter (statuses as of 08/15/2021) [address]-2021 History of Past illness Narrative* Problem Noted Date Resolved Date Closed left subtrochanteric femur fracture 07/2207/27/2020 Facial numbness 03/31/2019 04/03/2019 GI bleed 12/31/2018 01/11/2019 Frequency of urination 03/19/2018 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 documented as of this encounter (statuses as of 08/21/2021) [address]10-2021 History of Past illness Narrative* Problem Noted Date Resolved Date Closed left subtrochanteric femur fracture 07/2207/27/2020 Facial numbness 03/31/2019 04/03/2019 GI bleed 12/31/2018 01/11/2019 Frequency of urination 03/19/2018 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 documented as of this encounter (statuses as of 08/27/2021) [address]-2021 History of Past illness Narrative* Problem Noted Date Resolved Date Closed left subtrochanteric femur fracture 07/2207/27/2020 Facial numbness 03/31/2019 04/03/2019 GI bleed 12/31/2018 01/11/2019 Frequency of urination 03/19/2018 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 documented as of this encounter (statuses as of 08/29/2021) [address]10-2021 History of Past illness Narrative* Problem Noted Date Resolved Date Closed left subtrochanteric femur fracture 07/2207/27/2020 Facial numbness 03/31/2019 04/03/2019 GI bleed 12/31/2018 01/11/2019 Frequency of urination 03/19/2018 9 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 documented as of this encounter (statuses as of 08/30/2021) [address]-2021 History of Past illness Narrative* Problem Noted Date Resolved Date Closed left subtrochanteric femur fracture 07/2207/27/2020 Facial numbness 03/31/2019 04/03/2019 GI bleed 12/31/2018 01/11/2019 Frequency of urination 03/19/2018 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 documented as of this encounter (statuses as of 09/05/2021) [address]10-2021 History of Past illness Narrative* Problem Noted Date Resolved Date Closed left subtrochanteric femur fracture 07/2207/27/2020 Facial numbness 03/31/2019 04/03/2019 GI bleed 12/31/2018 01/11/2019 Frequency of urination 03/19/2018 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 documented as of this encounter (statuses as of 09/05/2021) [address]-2021 History of Past illness Narrative* Problem Noted Date Resolved Date Closed left subtrochanteric femur fracture 07/2207/27/2020 Facial numbness 03/31/2019 04/03/2019 GI bleed 12/31/2018 01/11/2019 Frequency of urination 03/19/2018 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 documented as of this encounter (statuses as of 09/11/2021) [address]10-2021 History of Past illness Narrative* Problem Noted Date Resolved Date Closed left subtrochanteric femur fracture 07/2207/27/2020 Facial numbness 03/31/2019 04/03/2019 GI bleed 12/31/2018 01/11/2019 Frequency of urination 03/19/2018 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 documented as of this encounter (statuses as of 09/12/2021) [address]10-2021 History of Past illness Narrative* Problem Noted Date Resolved Date Closed left subtrochanteric femur fracture 07/2207/27/2020 Facial numbness 03/31/2019 04/03/2019 GI bleed 12/31/2018 01/11/2019 Frequency of urination 03/19/2018 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 documented as of this encounter (statuses as of 09/13/2021) [address]10-2021 History of Past illness Narrative* Problem Noted Date Resolved Date Closed left subtrochanteric femur fracture 07/2207/27/2020 Facial numbness 03/31/2019 04/03/2019 GI bleed 12/31/2018 01/11/2019 Frequency of urination 03/19/2018 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 documented as of this encounter (statuses as of 09/13/2021) [address]10-2021 History of Past illness Narrative* Problem Noted Date Resolved Date Closed left subtrochanteric femur fracture 07/2207/27/2020 Facial numbness 03/31/2019 04/03/2019 GI bleed 12/31/2018 01/11/2019 Frequency of urination 03/19/2018 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 documented as of this encounter (statuses as of 09/19/2021) [address]10-2021 History of Past illness Narrative* Problem Noted Date Resolved Date Closed left subtrochanteric femur fracture 07/2207/27/2020 Facial numbness 03/31/2019 04/03/2019 GI bleed 12/31/2018 01/11/2019 Frequency of urination 03/19/2018 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 documented as of this encounter (statuses as of 09/24/2021) [address]10-2021 History of Past illness Narrative* Problem Noted Date Resolved Date Closed left subtrochanteric femur fracture 07/2207/27/2020 Facial numbness 03/31/2019 04/03/2019 GI bleed 12/31/2018 01/11/2019 Frequency of urination 03/19/2018 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 documented as of this encounter (statuses as of 09/26/2021) [address]10-2021 History of Past illness Narrative* Problem Noted Date Resolved Date Closed left subtrochanteric femur fracture 07/2207/27/2020 Facial numbness 03/31/2019 04/03/2019 GI bleed 12/31/2018 01/11/2019 Frequency of urination 03/19/2018 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 documented as of this encounter (statuses as of 09/26/2021) [address]10-2021 History of Past illness Narrative* Problem Noted Date Resolved Date Closed left subtrochanteric femur fracture 07/2207/27/2020 Facial numbness 03/31/2019 04/03/2019 GI bleed 12/31/2018 01/11/2019 Frequency of urination 03/19/2018 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 documented as of this encounter (statuses as of 09/28/2021) [address]10-2021 History of Past illness Narrative* Problem Noted Date Resolved Date Closed left subtrochanteric femur fracture 07/2207/27/2020 Facial numbness 03/31/2019 04/03/2019 GI bleed 12/31/2018 01/11/2019 Frequency of urination 03/19/2018 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 documented as of this encounter (statuses as of 09/28/2021) [address]10-2021 History of Past illness Narrative* Problem Noted Date Resolved Date Closed left subtrochanteric femur fracture 07/2207/27/2020 Facial numbness 03/31/2019 04/03/2019 GI bleed 12/31/2018 01/11/2019 Frequency of urination 03/19/2018 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 documented as of this encounter (statuses as of 10/02/2021) [address]10-2021 History of Past illness Narrative* Problem Noted Date Resolved Date Closed left subtrochanteric femur fracture 07/2207/27/2020 Facial numbness 03/31/2019 04/03/2019 GI bleed 12/31/2018 01/11/2019 Frequency of urination 03/19/2018 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 documented as of this encounter (statuses as of 10/03/2021) [address]10-2021 History of Past illness Narrative* Problem Noted Date Resolved Date Closed left subtrochanteric femur fracture 07/2207/27/2020 Facial numbness 03/31/2019 04/03/2019 GI bleed 12/31/2018 01/11/2019 Frequency of urination 03/19/2018 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 documented as of this encounter (statuses as of 10/04/2021) [address]10-2021 History of Past illness Narrative* Problem Noted Date Resolved Date Closed left subtrochanteric femur fracture 07/2207/27/2020 Facial numbness 03/31/2019 04/03/2019 GI bleed 12/31/2018 01/11/2019 Frequency of urination 03/19/2018 9 AVM (arteriovenous malformation) of colon 01/11/2019 documented as of this encounter (statuses as of 10/09/2021) [address]10-2021 History of Past illness Narrative* Problem Noted Date Resolved Date Closed left subtrochanteric femur fracture 07/2207/27/2020 Facial numbness 03/31/2019 04/03/2019 GI bleed 12/31/2018 01/11/2019 Frequency of urination 03/19/2018 9 AVM (arteriovenous malformation) of colon 01/11/2019 documented as of this encounter (statuses as of 10/10/2021) [address]10-2021 History of Past illness Narrative* Problem Noted Date Resolved Date Closed left subtrochanteric femur fracture 07/2207/27/2020 Facial numbness 03/31/2019 04/03/2019 GI bleed 12/31/2018 01/11/2019 Frequency of urination 03/19/2018 9 AVM (arteriovenous malformation) of colon 01/11/2019 documented as of this encounter (statuses as of 10/11/2021) [address]10-2021 History of Past illness Narrative* Problem Noted Date Resolved Date Closed left subtrochanteric femur fracture 07/2207/27/2020 Facial numbness 03/31/2019 04/03/2019 GI bleed 12/31/2018 01/11/2019 Frequency of urination 03/19/2018 9 AVM (arteriovenous malformation) of colon 01/11/2019 documented as of this encounter (statuses as of 10/17/2021) [address]10-2021 History of Past illness Narrative* Problem Noted Date Resolved Date Closed left subtrochanteric femur fracture 07/2207/27/2020 Facial numbness 03/31/2019 04/03/2019 GI bleed 12/31/2018 01/11/2019 Frequency of urination 03/19/2018 9 AVM (arteriovenous malformation) of colon 01/11/2019 documented as of this encounter (statuses as of 10/17/2021) [address]10-2021 History of Past illness Narrative* Problem Noted Date Resolved Date Closed left subtrochanteric femur fracture 07/2207/27/2020 Facial numbness 03/31/2019 04/03/2019 GI bleed 12/31/2018 01/11/2019 Frequency of urination 03/19/2018 9 AVM (arteriovenous malformation) of colon 01/11/2019 documented as of this encounter (statuses as of 10/18/2021) [address]10-2021 History of Past illness Narrative* Problem Noted Date Resolved Date Closed left subtrochanteric femur fracture 07/2207/27/2020 Facial numbness 03/31/2019 04/03/2019 GI bleed 12/31/2018 01/11/2019 Frequency of urination 03/19/2018 9 AVM (arteriovenous malformation) of colon 01/11/2019 documented as of this encounter (statuses as of 10/18/2021) [address]10-2021 History of Past illness Narrative* Problem Noted Date Resolved Date Closed left subtrochanteric femur fracture 07/2207/27/2020 Facial numbness 03/31/2019 04/03/2019 GI bleed 12/31/2018 01/11/2019 Frequency of urination 03/19/2018 9 AVM (arteriovenous malformation) of colon 01/11/2019 documented as of this encounter (statuses as of 10/22/2021) [address]10-2021 History of Past illness Narrative* Problem Noted Date Resolved Date Closed left subtrochanteric femur fracture 07/2207/27/2020 Facial numbness 03/31/2019 04/03/2019 GI bleed 12/31/2018 01/11/2019 Frequency of urination 03/19/2018 9 AVM (arteriovenous malformation) of colon 01/11/2019 documented as of this encounter (statuses as of 10/22/2021) [address]10-2021 History of Past illness Narrative* Problem Noted Date Resolved Date Closed left subtrochanteric femur fracture 07/2207/27/2020 Facial numbness 03/31/2019 04/03/2019 GI bleed 12/31/2018 01/11/2019 Frequency of urination 03/19/2018 9 AVM (arteriovenous malformation) of colon 01/11/2019 documented as of this encounter (statuses as of 10/22/2021) [address]10-2021 History of Past illness Narrative* Problem Noted Date Resolved Date Closed left subtrochanteric femur fracture 07/2207/27/2020 Facial numbness 03/31/2019 04/03/2019 GI bleed 12/31/2018 01/11/2019 Frequency of urination 03/19/2018 9 AVM (arteriovenous malformation) of colon 01/11/2019 documented as of this encounter (statuses as of 10/24/2021) [address]10-2021 History of Past illness Narrative* Problem Noted Date Resolved Date Closed left subtrochanteric femur fracture 07/2207/27/2020 Facial numbness 03/31/2019 04/03/2019 GI bleed 12/31/2018 01/11/2019 Frequency of urination 03/19/2018 9 AVM (arteriovenous malformation) of colon 01/11/2019 documented as of this encounter (statuses as of 10/24/2021) [address]10-2021 History of Past illness Narrative* Problem Noted Date Resolved Date Closed left subtrochanteric femur fracture 07/2207/27/2020 Facial numbness 03/31/2019 04/03/2019 GI bleed 12/31/2018 01/11/2019 Frequency of urination 03/19/2018 9 AVM (arteriovenous malformation) of colon 01/11/2019 documented as of this encounter (statuses as of 10/25/2021) [address]10-2021 History of Past illness Narrative* Problem Noted Date Resolved Date Closed left subtrochanteric femur fracture 07/2207/27/2020 Facial numbness 03/31/2019 04/03/2019 GI bleed 12/31/2018 01/11/2019 Frequency of urination 03/19/2018 9 AVM (arteriovenous malformation) of colon 01/11/2019 documented as of this encounter (statuses as of 10/25/2021) [address]10-2021 History of Past illness Narrative* Problem Noted Date Resolved Date Closed left subtrochanteric femur fracture 07/2207/27/2020 Facial numbness 03/31/2019 04/03/2019 GI bleed 12/31/2018 01/11/2019 Frequency of urination 03/19/2018 9 AVM (arteriovenous malformation) of colon 01/11/2019 documented as of this encounter (statuses as of 2021) [address]10-2021 History of Past illness Narrative* Problem Noted Date Resolved Date Closed left subtrochanteric femur fracture 07/2207/27/2020 Facial numbness 03/31/2019 04/03/2019 GI bleed 12/31/2018 01/11/2019 Frequency of urination 03/19/2018 9 AVM (arteriovenous malformation) of colon 01/11/2019 documented as of this encounter (statuses as of 2021) [address]10-2021 History of Past illness Narrative* Problem Noted Date Resolved Date Closed left subtrochanteric femur fracture 07/2207/27/2020 Facial numbness 03/31/2019 04/03/2019 GI bleed 12/31/2018 01/11/2019 Frequency of urination 03/19/2018 9 AVM (arteriovenous malformation) of colon 01/11/2019 documented as of this encounter (statuses as of 2021) [address]10-2021 History of Past illness Narrative* Problem Noted Date Resolved Date Closed left subtrochanteric femur fracture 07/2207/27/2020 Facial numbness 03/31/2019 04/03/2019 GI bleed 12/31/2018 01/11/2019 Frequency of urination 03/19/2018 9 AVM (arteriovenous malformation) of colon 01/11/2019 documented as of this encounter (statuses as of 10/31/2021) [address]10-2021 History of Past illness Narrative* Problem Noted Date Resolved Date Closed left subtrochanteric femur fracture 07/2207/27/2020 Facial numbness 03/31/2019 04/03/2019 GI bleed 12/31/2018 01/11/2019 Frequency of urination 03/19/2018 9 AVM (arteriovenous malformation) of colon 01/11/2019 documented as of this encounter (statuses as of 11/07/2021) [address]10-2021 History of Past illness Narrative* Problem Noted Date Resolved Date Closed left subtrochanteric femur fracture 07/2207/27/2020 Facial numbness 03/31/2019 04/03/2019 GI bleed 12/31/2018 01/11/2019 Frequency of urination 03/19/2018 9 AVM (arteriovenous malformation) of colon 01/11/2019 documented as of this encounter (statuses as of 11/12/2021) [address]10-2021 History of Past illness Narrative* Problem Noted Date Resolved Date Closed left subtrochanteric femur fracture 07/2207/27/2020 Facial numbness 03/31/2019 04/03/2019 GI bleed 12/31/2018 01/11/2019 Frequency of urination 03/19/2018 9 AVM (arteriovenous malformation) of colon 01/11/2019 documented as of this encounter (statuses as of 11/15/2021) [address]10-2021 History of Past illness Narrative* Problem Noted Date Resolved Date Closed left subtrochanteric femur fracture 07/2207/27/2020 Facial numbness 03/31/2019 04/03/2019 GI bleed 12/31/2018 01/11/2019 Frequency of urination 03/19/2018 9 AVM (arteriovenous malformation) of colon 01/11/2019 documented as of this encounter (statuses as of 11/19/2021) [address]10-2021 History of Past illness Narrative* Problem Noted Date Resolved Date Closed left subtrochanteric femur fracture 07/2207/27/2020 Facial numbness 03/31/2019 04/03/2019 GI bleed 12/31/2018 01/11/2019 Frequency of urination 03/19/2018 9 AVM (arteriovenous malformation) of colon 01/11/2019 documented as of this encounter (statuses as of 11/19/2021) [address]10-2021 History of Past illness Narrative* Problem Noted Date Resolved Date Closed left subtrochanteric femur fracture 07/2207/27/2020 Facial numbness 03/31/2019 04/03/2019 GI bleed 12/31/2018 01/11/2019 Frequency of urination 03/19/2018 9 AVM (arteriovenous malformation) of colon 01/11/2019 documented as of this encounter (statuses as of 11/22/2021) [address]10-2021 History of Past illness Narrative* Problem Noted Date Resolved Date Closed left subtrochanteric femur fracture 07/2207/27/2020 Facial numbness 03/31/2019 04/03/2019 GI bleed 12/31/2018 01/11/2019 Frequency of urination 03/19/2018 9 AVM (arteriovenous malformation) of colon 01/11/2019 documented as of this encounter (statuses as of 12/01/2021) [address]10-2021 History of Past illness Narrative* Problem Noted Date Resolved Date Closed left subtrochanteric femur fracture 07/2207/27/2020 Facial numbness 03/31/2019 04/03/2019 GI bleed 12/31/2018 01/11/2019 Frequency of urination 03/19/2018 9 AVM (arteriovenous malformation) of colon 01/11/2019 documented as of this encounter (statuses as of 12/03/2021) [address]10-2021 History of Past illness Narrative* Problem Noted Date Resolved Date Closed left subtrochanteric femur fracture 07/2207/27/2020 Facial numbness 03/31/2019 04/03/2019 GI bleed 12/31/2018 01/11/2019 Frequency of urination 03/19/2018 9 AVM (arteriovenous malformation) of colon 01/11/2019 documented as of this encounter (statuses as of 12/04/2021) [address]10-2021 History of Past illness Narrative* Problem Noted Date Resolved Date Closed left subtrochanteric femur fracture 07/2207/27/2020 Facial numbness 03/31/2019 04/03/2019 GI bleed 12/31/2018 01/11/2019 Frequency of urination 03/19/2018 9 AVM (arteriovenous malformation) of colon 01/11/2019 documented as of this encounter (statuses as of 12/07/2021) [address]10-2021 History of Past illness Narrative* Problem Noted Date Resolved Date Closed left subtrochanteric femur fracture 07/2207/27/2020 Facial numbness 03/31/2019 04/03/2019 GI bleed 12/31/2018 01/11/2019 Frequency of urination 03/19/2018 9 AVM (arteriovenous malformation) of colon 01/11/2019 documented as of this encounter (statuses as of 12/12/2021) [address]10-2021 History of Past illness Narrative* Problem Noted Date Resolved Date Closed left subtrochanteric femur fracture 07/2207/27/2020 Facial numbness 03/31/2019 04/03/2019 GI bleed 12/31/2018 01/11/2019 Frequency of urination 03/19/2018 9 AVM (arteriovenous malformation) of colon 01/11/2019 documented as of this encounter (statuses as of 12/18/2021) [address]10-2021 History of Past illness Narrative* Problem Noted Date Resolved Date Closed left subtrochanteric femur fracture 07/2207/27/2020 Facial numbness 03/31/2019 04/03/2019 GI bleed 12/31/2018 01/11/2019 Frequency of urination 03/19/2018 9 AVM (arteriovenous malformation) of colon 01/11/2019 documented as of this encounter (statuses as of 12/19/2021) [address]10-2021 History of Past illness Narrative* Problem Noted Date Resolved Date Closed left subtrochanteric femur fracture 07/2207/27/2020 Facial numbness 03/31/2019 04/03/2019 GI bleed 12/31/2018 01/11/2019 Frequency of urination 03/19/2018 9 AVM (arteriovenous malformation) of colon 01/11/2019 documented as of this encounter (statuses as of 12/27/2021) [address]10-2021 History of Past illness Narrative* Problem Noted Date Resolved Date Closed left subtrochanteric femur fracture 07/2207/27/2020 Facial numbness 03/31/2019 04/03/2019 GI bleed 12/31/2018 01/11/2019 Frequency of urination 03/19/2018 9 AVM (arteriovenous malformation) of colon 01/11/2019 documented as of this encounter (statuses as of 01/16/2022) [address]-2021 History of Past illness Narrative* Problem Noted Date Resolved Date Closed left subtrochanteric femur fracture 07/2207/27/2020 Facial numbness 03/31/2019 04/03/2019 GI bleed 12/31/2018 01/11/2019 Frequency of urination 03/19/2018 9 AVM (arteriovenous malformation) of colon 01/11/2019 documented as of this encounter (statuses as of 01/17/2022) [address]-2021 History of Past illness Narrative* Problem Noted Date Resolved Date Closed left subtrochanteric femur fracture 07/2207/27/2020 Facial numbness 03/31/2019 04/03/2019 GI bleed 12/31/2018 01/11/2019 Frequency of urination 03/19/2018 9 AVM (arteriovenous malformation) of colon 01/11/2019 documented as of this encounter (statuses as of 01/17/2022) [address]-2021 History of Past illness Narrative* Problem Noted Date Resolved Date Closed left subtrochanteric femur fracture 07/2207/27/2020 Facial numbness 03/31/2019 04/03/2019 GI bleed 12/31/2018 01/11/2019 Frequency of urination 03/19/2018 9 AVM (arteriovenous malformation) of colon 01/11/2019 documented as of this encounter (statuses as of 01/21/2022) [address]-2021 History of Past illness Narrative* Problem Noted Date Resolved Date Closed left subtrochanteric femur fracture 07/2207/27/2020 Facial numbness 03/31/2019 04/03/2019 GI bleed 12/31/2018 01/11/2019 Frequency of urination 03/19/2018 9 AVM (arteriovenous malformation) of colon 01/11/2019 documented as of this encounter (statuses as of 01/24/2022) [address]-2021 History of Past illness Narrative* Problem Noted Date Resolved Date Closed left subtrochanteric femur fracture 07/2207/27/2020 Facial numbness 03/31/2019 04/03/2019 GI bleed 12/31/2018 01/11/2019 Frequency of urination 03/19/2018 9 AVM (arteriovenous malformation) of colon 01/11/2019 documented as of this encounter (statuses as of 02/06/2022) [address]-2021 History of Past illness Narrative* Problem Noted Date Resolved Date Closed left subtrochanteric femur fracture 07/2207/27/2020 Facial numbness 03/31/2019 04/03/2019 GI bleed 12/31/2018 01/11/2019 Frequency of urination 03/19/2018 9 AVM (arteriovenous malformation) of colon 01/11/2019 documented as of this encounter (statuses as of 02/14/2022) [address]10-2021 History of Past illness Narrative* Problem Noted Date Resolved Date Closed left subtrochanteric femur fracture 07/2207/27/2020 Facial numbness 03/31/2019 04/03/2019 GI bleed 12/31/2018 01/11/2019 Frequency of urination 03/19/2018 9 AVM (arteriovenous malformation) of colon 01/11/2019 documented as of this encounter (statuses as of 02/15/2022) [address]10-2021 History of Past illness Narrative* Problem Noted Date Resolved Date Closed left subtrochanteric femur fracture 07/2207/27/2020 Facial numbness 03/31/2019 04/03/2019 GI bleed 12/31/2018 01/11/2019 Frequency of urination 03/19/2018 9 AVM (arteriovenous malformation) of colon 01/11/2019 documented as of this encounter (statuses as of 02/19/2022) [address]10-2021 History of Past illness Narrative* Problem Noted Date Resolved Date Closed left subtrochanteric femur fracture 07/2207/27/2020 Facial numbness 03/31/2019 04/03/2019 GI bleed 12/31/2018 01/11/2019 Frequency of urination 03/19/2018 9 AVM (arteriovenous malformation) of colon 01/11/2019 documented as of this encounter (statuses as of 02/20/2022) [address]10-2021 History of Past illness Narrative* Problem Noted Date Resolved Date Closed left subtrochanteric femur fracture 07/2207/27/2020 Facial numbness 03/31/2019 04/03/2019 GI bleed 12/31/2018 01/11/2019 Frequency of urination 03/19/2018 9 AVM (arteriovenous malformation) of colon 01/11/2019 documented as of this encounter (statuses as of 02/26/2022) [address]10-2021 History of Past illness Narrative* Problem Noted Date Resolved Date Closed left subtrochanteric femur fracture 07/2207/27/2020 Facial numbness 03/31/2019 04/03/2019 GI bleed 12/31/2018 01/11/2019 Frequency of urination 03/19/2018 9 AVM (arteriovenous malformation) of colon 01/11/2019 documented as of this encounter (statuses as of 03/04/2022) [address]10-2021 History of Past illness Narrative* Problem Noted Date Resolved Date Closed left subtrochanteric femur fracture 07/2207/27/2020 Facial numbness 03/31/2019 04/03/2019 GI bleed 12/31/2018 01/11/2019 Frequency of urination 03/19/2018 9 AVM (arteriovenous malformation) of colon 01/11/2019 documented as of this encounter (statuses as of 03/13/2022) [address]10-2021 History of Past illness Narrative* Problem Noted Date Resolved Date Closed left subtrochanteric femur fracture 07/2207/27/2020 Facial numbness 03/31/2019 04/03/2019 GI bleed 12/31/2018 01/11/2019 Frequency of urination 03/19/2018 9 AVM (arteriovenous malformation) of colon 01/11/2019 documented as of this encounter (statuses as of 03/18/2022) [address]10-2021 History of Past illness Narrative* Problem Noted Date Resolved Date Closed left subtrochanteric femur fracture 07/2207/27/2020 Facial numbness 03/31/2019 04/03/2019 GI bleed 12/31/2018 01/11/2019 Frequency of urination 03/19/2018 9 AVM (arteriovenous malformation) of colon 01/11/2019 documented as of this encounter (statuses as of 03/18/2022) [address]10-2021 History of Past illness Narrative* Problem Noted Date Resolved Date Closed left subtrochanteric femur fracture 07/2207/27/2020 Facial numbness 03/31/2019 04/03/2019 GI bleed 12/31/2018 01/11/2019 Frequency of urination 03/19/2018 9 AVM (arteriovenous malformation) of colon 01/11/2019 documented as of this encounter (statuses as of 03/18/2022) [address]10-2021 History of Past illness Narrative* Problem Noted Date Resolved Date Closed left subtrochanteric femur fracture 07/2207/27/2020 Facial numbness 03/31/2019 04/03/2019 GI bleed 12/31/2018 01/11/2019 Frequency of urination 03/19/2018 9 AVM (arteriovenous malformation) of colon 01/11/2019 documented as of this encounter (statuses as of 03/21/2022) [address]10-2021 History of Past illness Narrative* Problem Noted Date Resolved Date Closed left subtrochanteric femur fracture 07/2207/27/2020 Facial numbness 03/31/2019 04/03/2019 GI bleed 12/31/2018 01/11/2019 Frequency of urination 03/19/2018 9 AVM (arteriovenous malformation) of colon 01/11/2019 documented as of this encounter (statuses as of 03/21/2022) [address]10-2021 History of Past illness Narrative* Problem Noted Date Resolved Date Closed left subtrochanteric femur fracture 07/2207/27/2020 Facial numbness 03/31/2019 04/03/2019 GI bleed 12/31/2018 01/11/2019 Frequency of urination 03/19/2018 9 AVM (arteriovenous malformation) of colon 01/11/2019 documented as of this encounter (statuses as of 03/22/2022) [address]10-2021 History of Past illness Narrative* Problem Noted Date Resolved Date Closed left subtrochanteric femur fracture 07/2207/27/2020 Facial numbness 03/31/2019 04/03/2019 GI bleed 12/31/2018 01/11/2019 Frequency of urination 03/19/2018 9 AVM (arteriovenous malformation) of colon 01/11/2019 documented as of this encounter (statuses as of 03/25/2022) [address]10-2021 History of Past illness Narrative* Problem Noted Date Resolved Date Closed left subtrochanteric femur fracture 07/2207/27/2020 Facial numbness 03/31/2019 04/03/2019 GI bleed 12/31/2018 01/11/2019 Frequency of urination 03/19/2018 9 AVM (arteriovenous malformation) of colon 01/11/2019 documented as of this encounter (statuses as of 03/27/2022) [address]10-2021 History of Past illness Narrative* Problem Noted Date Resolved Date Closed left subtrochanteric femur fracture 07/2207/27/2020 Facial numbness 03/31/2019 04/03/2019 GI bleed 12/31/2018 01/11/2019 Frequency of urination 03/19/2018 9 AVM (arteriovenous malformation) of colon 01/11/2019 documented as of this encounter (statuses as of 04/03/2022) [address]10-2021 History of Past illness Narrative* Problem Noted Date Resolved Date Closed left subtrochanteric femur fracture 07/2207/27/2020 Facial numbness 03/31/2019 04/03/2019 GI bleed 12/31/2018 01/11/2019 Frequency of urination 03/19/2018 9 AVM (arteriovenous malformation) of colon 01/11/2019 documented as of this encounter (statuses as of 04/03/2022) [address]10-2021 History of Past illness Narrative* Problem Noted Date Resolved Date Closed left subtrochanteric femur fracture 07/2207/27/2020 Facial numbness 03/31/2019 04/03/2019 GI bleed 12/31/2018 01/11/2019 Frequency of urination 03/19/2018 9 AVM (arteriovenous malformation) of colon 01/11/2019 documented as of this encounter (statuses as of 04/05/2022) [address]10-2021 History of Past illness Narrative* Problem Noted Date Resolved Date Closed left subtrochanteric femur fracture 07/2207/27/2020 Facial numbness 03/31/2019 04/03/2019 GI bleed 12/31/2018 01/11/2019 Frequency of urination 03/19/2018 9 AVM (arteriovenous malformation) of colon 01/11/2019 documented as of this encounter (statuses as of 04/06/2022) [address]10-2021 History of Past illness Narrative* Problem Noted Date Resolved Date Closed left subtrochanteric femur fracture 07/2207/27/2020 Facial numbness 03/31/2019 04/03/2019 GI bleed 12/31/2018 01/11/2019 Frequency of urination 03/19/2018 9 AVM (arteriovenous malformation) of colon 01/11/2019 documented as of this encounter (statuses as of 04/19/2022) [address]10-2021 History of Past illness Narrative* Problem Noted Date Resolved Date Closed left subtrochanteric femur fracture 07/2207/27/2020 Facial numbness 03/31/2019 04/03/2019 GI bleed 12/31/2018 01/11/2019 Frequency of urination 03/19/2018 9 AVM (arteriovenous malformation) of colon 01/11/2019 documented as of this encounter (statuses as of 04/19/2022) [address]10-2021 History of Past illness Narrative* Problem Noted Date Resolved Date Closed left subtrochanteric femur fracture 07/2207/27/2020 Facial numbness 03/31/2019 04/03/2019 GI bleed 12/31/2018 01/11/2019 Frequency of urination 03/19/2018 9 AVM (arteriovenous malformation) of colon 01/11/2019 documented as of this encounter (statuses as of 04/19/2022) [facility]04-10-2021 History of Past illness Narrative* Problem Noted Date Resolved Date Closed left subtrochanteric femur fracture 07/2207/27/2020 Facial numbness 03/31/2019 04/03/2019 GI bleed 12/31/2018 01/11/2019 Frequency of urination 03/19/2018 9 AVM (arteriovenous malformation) of colon 01/11/2019 documented as of this encounter (statuses as of 04/20/2022) [address]10-2021 History of Past illness Narrative* Problem Noted Date Resolved Date Closed left subtrochanteric femur fracture 07/2207/27/2020 Facial numbness 03/31/2019 04/03/2019 GI bleed 12/31/2018 01/11/2019 Frequency of urination 03/19/2018 9 AVM (arteriovenous malformation) of colon 01/11/2019 documented as of this encounter (statuses as of 04/23/2022) [address]10-2021 History of Past illness Narrative* Problem Noted Date Resolved Date Closed left subtrochanteric femur fracture 07/2207/27/2020 Facial numbness 03/31/2019 04/03/2019 GI bleed 12/31/2018 01/11/2019 Frequency of urination 03/19/2018 9 AVM (arteriovenous malformation) of colon 01/11/2019 documented as of this encounter (statuses as of 04/25/2022) [address]10-2021 History of Past illness Narrative* Problem Noted Date Resolved Date Closed left subtrochanteric femur fracture 07/2207/27/2020 Facial numbness 03/31/2019 04/03/2019 GI bleed 12/31/2018 01/11/2019 Frequency of urination 03/19/2018 9 AVM (arteriovenous malformation) of colon 01/11/2019 documented as of this encounter (statuses as of 04/30/2022) [address]10-2021 History of Past illness Narrative* Problem Noted Date Resolved Date Closed left subtrochanteric femur fracture 07/2207/27/2020 Facial numbness 03/31/2019 04/03/2019 GI bleed 12/31/2018 01/11/2019 Frequency of urination 03/19/2018 9 AVM (arteriovenous malformation) of colon 01/11/2019 documented as of this encounter (statuses as of 05/15/2022) [address]10-2021 History of Past illness Narrative* Problem Noted Date Resolved Date Closed left subtrochanteric femur fracture 07/2207/27/2020 Facial numbness 03/31/2019 04/03/2019 GI bleed 12/31/2018 01/11/2019 Frequency of urination 03/19/2018 9 AVM (arteriovenous malformation) of colon 01/11/2019 documented as of this encounter (statuses as of 05/22/2022) [address]10-2021 History of Past illness Narrative* Problem Noted Date Resolved Date Closed left subtrochanteric femur fracture 07/2207/27/2020 Facial numbness 03/31/2019 04/03/2019 GI bleed 12/31/2018 01/11/2019 Frequency of urination 03/19/2018 9 AVM (arteriovenous malformation) of colon 01/11/2019 documented as of this encounter (statuses as of 05/23/2022) [address]10-2021 History of Past illness Narrative* Problem Noted Date Resolved Date Closed left subtrochanteric femur fracture 07/2207/27/2020 Facial numbness 03/31/2019 04/03/2019 GI bleed 12/31/2018 01/11/2019 Frequency of urination 03/19/2018 9 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 documented as of this encounter (statuses as of 05/31/2022) [address]10-2021 History of Past illness Narrative* Problem Noted Date Resolved Date Closed left subtrochanteric femur fracture 07/2207/27/2020 Facial numbness 03/31/2019 04/03/2019 GI bleed 12/31/2018 01/11/2019 Frequency of urination 03/19/2018 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 documented as of this encounter (statuses as of 06/04/2022) [address]10-2021 History of Past illness Narrative* Problem Noted Date Resolved Date Closed left subtrochanteric femur fracture 07/2207/27/2020 Facial numbness 03/31/2019 04/03/2019 GI bleed 12/31/2018 01/11/2019 Frequency of urination 03/19/2018 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 documented as of this encounter (statuses as of 06/05/2022) [address]10-2021 History of Past illness Narrative* Problem Noted Date Resolved Date Closed left subtrochanteric femur fracture 07/2207/27/2020 Facial numbness 03/31/2019 04/03/2019 GI bleed 12/31/2018 01/11/2019 Frequency of urination 03/19/2018 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 documented as of this encounter (statuses as of 06/07/2022) [address]10-2021 History of Past illness Narrative* Problem Noted Date Resolved Date Closed left subtrochanteric femur fracture 07/2207/27/2020 Facial numbness 03/31/2019 04/03/2019 GI bleed 12/31/2018 01/11/2019 Frequency of urination 03/19/2018 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 documented as of this encounter (statuses as of 06/10/2022) [address]10-2021 History of Past illness Narrative* Problem Noted Date Resolved Date Closed left subtrochanteric femur fracture 07/2207/27/2020 Facial numbness 03/31/2019 04/03/2019 GI bleed 12/31/2018 01/11/2019 Frequency of urination 03/19/2018 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 documented as of this encounter (statuses as of 06/12/2022) [address]10-2021 History of Past illness Narrative* Problem Noted Date Resolved Date Closed left subtrochanteric femur fracture 07/2207/27/2020 Facial numbness 03/31/2019 04/03/2019 GI bleed 12/31/2018 01/11/2019 Frequency of urination 03/19/2018 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 documented as of this encounter (statuses as of 06/14/2022) [address]10-2021 History of Past illness Narrative* Problem Noted Date Resolved Date Closed left subtrochanteric femur fracture 07/2207/27/2020 Facial numbness 03/31/2019 04/03/2019 GI bleed 12/31/2018 01/11/2019 Frequency of urination 03/19/2018 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 documented as of this encounter (statuses as of 06/14/2022) [address]10-2021 History of Past illness Narrative* Problem Noted Date Resolved Date Closed left subtrochanteric femur fracture 07/2207/27/2020 Facial numbness 03/31/2019 04/03/2019 GI bleed 12/31/2018 01/11/2019 Frequency of urination 03/19/2018 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 documented as of this encounter (statuses as of 06/19/2022) [address]10-2021 History of Past illness Narrative* Problem Noted Date Resolved Date Closed left subtrochanteric femur fracture 07/2207/27/2020 Facial numbness 03/31/2019 04/03/2019 GI bleed 12/31/2018 01/11/2019 Frequency of urination 03/19/2018 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 documented as of this encounter (statuses as of 06/21/2022) [address]10-2021 History of Past illness Narrative* Problem Noted Date Resolved Date Closed left subtrochanteric femur fracture 07/2207/27/2020 Facial numbness 03/31/2019 04/03/2019 GI bleed 12/31/2018 01/11/2019 Frequency of urination 03/19/2018 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 documented as of this encounter (statuses as of 06/24/2022) [facility]04-10-2021 History of Past illness Narrative* Problem Noted Date Resolved Date Closed left subtrochanteric femur fracture 07/2207/27/2020 Facial numbness 03/31/2019 04/03/2019 GI bleed 12/31/2018 01/11/2019 Frequency of urination 03/19/2018 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 documented as of this encounter (statuses as of 06/25/2022) [address]10-2021 History of Past illness Narrative* Problem Noted Date Resolved Date Closed left subtrochanteric femur fracture 07/2207/27/2020 Facial numbness 03/31/2019 04/03/2019 GI bleed 12/31/2018 01/11/2019 Frequency of urination 03/19/2018 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 documented as of this encounter (statuses as of 06/27/2022) [address]10-2021 History of Past illness Narrative* Problem Noted Date Resolved Date Closed left subtrochanteric femur fracture 07/2207/27/2020 Facial numbness 03/31/2019 04/03/2019 GI bleed 12/31/2018 01/11/2019 Frequency of urination 03/19/2018 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 documented as of this encounter (statuses as of 06/28/2022) [address]10-2021 History of Past illness Narrative* Problem Noted Date Resolved Date Closed left subtrochanteric femur fracture 07/2207/27/2020 Facial numbness 03/31/2019 04/03/2019 GI bleed 12/31/2018 01/11/2019 Frequency of urination 03/19/2018 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 documented as of this encounter (statuses as of 07/01/2022) [address]10-2021 History of Past illness Narrative* Problem Noted Date Resolved Date Closed left subtrochanteric femur fracture 07/2207/27/2020 Facial numbness 03/31/2019 04/03/2019 GI bleed 12/31/2018 01/11/2019 Frequency of urination 03/19/2018 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 documented as of this encounter (statuses as of 07/02/2022) [address]10-2021 History of Past illness Narrative* Problem Noted Date Resolved Date Closed left subtrochanteric femur fracture 07/2207/27/2020 Facial numbness 03/31/2019 04/03/2019 GI bleed 12/31/2018 01/11/2019 Frequency of urination 03/19/2018 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 documented as of this encounter (statuses as of 07/04/2022) [address]10-2021 History of Past illness Narrative* Problem Noted Date Resolved Date Closed left subtrochanteric femur fracture 07/2207/27/2020 Facial numbness 03/31/2019 04/03/2019 GI bleed 12/31/2018 01/11/2019 Frequency of urination 03/19/2018 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 documented as of this encounter (statuses as of 07/05/2022) [address]10-2021 History of Past illness Narrative* Problem Noted Date Resolved Date Closed left subtrochanteric femur fracture 07/2207/27/2020 Facial numbness 03/31/2019 04/03/2019 GI bleed 12/31/2018 01/11/2019 Frequency of urination 03/19/2018 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 documented as of this encounter (statuses as of 07/11/2022) [address]10-2021 History of Past illness Narrative* Problem Noted Date Resolved Date Closed left subtrochanteric femur fracture 07/2207/27/2020 Facial numbness 03/31/2019 04/03/2019 GI bleed 12/31/2018 01/11/2019 Frequency of urination 03/19/2018 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 documented as of this encounter (statuses as of 07/11/2022) [facility]04-10-2021 History of Past illness Narrative* Problem Noted Date Resolved Date Closed left subtrochanteric femur fracture 07/2207/27/2020 Facial numbness 03/31/2019 04/03/2019 GI bleed 12/31/2018 01/11/2019 Frequency of urination 03/19/2018 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 documented as of this encounter (statuses as of 07/15/2022) [address]10-2021 History of Past illness Narrative* Problem Noted Date Resolved Date Closed left subtrochanteric femur fracture 07/2207/27/2020 Facial numbness 03/31/2019 04/03/2019 GI bleed 12/31/2018 01/11/2019 Frequency of urination 03/19/2018 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 documented as of this encounter (statuses as of 07/15/2022) [address]10-2021 History of Past illness Narrative* Problem Noted Date Resolved Date Closed left subtrochanteric femur fracture 07/2207/27/2020 Facial numbness 03/31/2019 04/03/2019 GI bleed 12/31/2018 01/11/2019 Frequency of urination 03/19/2018 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 documented as of this encounter (statuses as of 07/18/2022) [address]10-2021 History of Past illness Narrative* Problem Noted Date Resolved Date Closed left subtrochanteric femur fracture 07/2207/27/2020 Facial numbness 03/31/2019 04/03/2019 GI bleed 12/31/2018 01/11/2019 Frequency of urination 03/19/2018 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 documented as of this encounter (statuses as of 07/19/2022) [address]10-2021 History of Past illness Narrative* Problem Noted Date Resolved Date Closed left subtrochanteric femur fracture 07/2207/27/2020 Facial numbness 03/31/2019 04/03/2019 GI bleed 12/31/2018 01/11/2019 Frequency of urination 03/19/2018 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 documented as of this encounter (statuses as of 07/19/2022) [address]10-2021 History of Past illness Narrative* Problem Noted Date Resolved Date Closed left subtrochanteric femur fracture 07/2207/27/2020 Facial numbness 03/31/2019 04/03/2019 GI bleed 12/31/2018 01/11/2019 Frequency of urination 03/19/2018 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 documented as of this encounter (statuses as of 07/19/2022) [address]10-2021 History of Past illness Narrative* Problem Noted Date Resolved Date Closed left subtrochanteric femur fracture 07/2207/27/2020 Facial numbness 03/31/2019 04/03/2019 GI bleed 12/31/2018 01/11/2019 Frequency of urination 03/19/2018 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 documented as of this encounter (statuses as of 07/22/2022) [address]10-2021 History of Past illness Narrative* Problem Noted Date Resolved Date Closed left subtrochanteric femur fracture 07/2207/27/2020 Facial numbness 03/31/2019 04/03/2019 GI bleed 12/31/2018 01/11/2019 Frequency of urination 03/19/2018 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 documented as of this encounter (statuses as of 07/23/2022) [address]10-2021 History of Past illness Narrative* Problem Noted Date Resolved Date Closed left subtrochanteric femur fracture 07/2207/27/2020 Facial numbness 03/31/2019 04/03/2019 GI bleed 12/31/2018 01/11/2019 Frequency of urination 03/19/2018 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 documented as of this encounter (statuses as of 07/26/2022) [facility]04-10-2021 History of Past illness Narrative* Problem Noted Date Resolved Date Closed left subtrochanteric femur fracture 07/2207/27/2020 Facial numbness 03/31/2019 04/03/2019 GI bleed 12/31/2018 01/11/2019 Frequency of urination 03/19/2018 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 documented as of this encounter (statuses as of 07/26/2022) [address]10-2021 History of Past illness Narrative* Problem Noted Date Resolved Date Closed left subtrochanteric femur fracture 07/2207/27/2020 Facial numbness 03/31/2019 04/03/2019 GI bleed 12/31/2018 01/11/2019 Frequency of urination 03/19/2018 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 documented as of this encounter (statuses as of 07/29/2022) [address]10-2021 History of Past illness Narrative* Problem Noted Date Resolved Date Closed left subtrochanteric femur fracture 07/2207/27/2020 Facial numbness 03/31/2019 04/03/2019 GI bleed 12/31/2018 01/11/2019 Frequency of urination 03/19/2018 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 documented as of this encounter (statuses as of 08/01/2022) [address]10-2021 History of Past illness Narrative* Problem Noted Date Resolved Date Closed left subtrochanteric femur fracture 07/2207/27/2020 Facial numbness 03/31/2019 04/03/2019 GI bleed 12/31/2018 01/11/2019 Frequency of urination 03/19/2018 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 documented as of this encounter (statuses as of 08/02/2022) [address]10-2021 History of Past illness Narrative* Problem Noted Date Resolved Date Closed left subtrochanteric femur fracture 07/2207/27/2020 Facial numbness 03/31/2019 04/03/2019 GI bleed 12/31/2018 01/11/2019 Frequency of urination 03/19/2018 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 documented as of this encounter (statuses as of 08/02/2022) [address]10-2021 History of Past illness Narrative* Problem Noted Date Resolved Date Closed left subtrochanteric femur fracture 07/2207/27/2020 Facial numbness 03/31/2019 04/03/2019 GI bleed 12/31/2018 01/11/2019 Frequency of urination 03/19/2018 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 documented as of this encounter (statuses as of 08/07/2022) [address]10-2021 History of Past illness Narrative* Problem Noted Date Resolved Date Closed left subtrochanteric femur fracture 07/2207/27/2020 Facial numbness 03/31/2019 04/03/2019 GI bleed 12/31/2018 01/11/2019 Frequency of urination 03/19/2018 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 documented as of this encounter (statuses as of 08/08/2022) [address]10-2021 History of Past illness Narrative* Problem Noted Date Resolved Date Closed left subtrochanteric femur fracture 07/2207/27/2020 Facial numbness 03/31/2019 04/03/2019 GI bleed 12/31/2018 01/11/2019 Frequency of urination 03/19/2018 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 documented as of this encounter (statuses as of 08/12/2022) [address]10-2021 History of Past illness Narrative* Problem Noted Date Resolved Date Closed left subtrochanteric femur fracture 07/2207/27/2020 Facial numbness 03/31/2019 04/03/2019 GI bleed 12/31/2018 01/11/2019 Frequency of urination 03/19/2018 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 documented as of this encounter (statuses as of 08/14/2022) [facility]04-10-2021 History of Past illness Narrative* Problem Noted Date Resolved Date Closed left subtrochanteric femur fracture 07/2207/27/2020 Facial numbness 03/31/2019 04/03/2019 GI bleed 12/31/2018 01/11/2019 Frequency of urination 03/19/2018 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 documented as of this encounter (statuses as of 08/15/2022) [facility]21 History of Past illness Narrative* Problem Noted Date Resolved Date Closed left subtrochanteric femur fracture 07/2207/27/2020 Facial numbness 03/31/2019 04/03/2019 GI bleed 12/31/2018 01/11/2019 Frequency of urination 03/19/2018 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 documented as of this encounter (statuses as of 08/19/2022) [facility] History of Past illness Narrative* Problem Noted Date Resolved Date Closed left subtrochanteric femur fracture 07/2207/27/2020 Facial numbness 03/31/2019 04/03/2019 GI bleed 12/31/2018 01/11/2019 Frequency of urination 03/19/2018 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 documented as of this encounter (statuses as of 08/21/2022) [address]10-2021 History of Past illness Narrative* Problem Noted Date Resolved Date Closed left subtrochanteric femur fracture 07/2207/27/2020 Facial numbness 03/31/2019 04/03/2019 GI bleed 12/31/2018 01/11/2019 Frequency of urination 03/19/2018 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 documented as of this encounter (statuses as of 08/27/2022) [address]10-2021 History of Past illness Narrative* Problem Noted Date Resolved Date Closed left subtrochanteric femur fracture 07/2207/27/2020 Facial numbness 03/31/2019 04/03/2019 GI bleed 12/31/2018 01/11/2019 Frequency of urination 03/19/2018 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 documented as of this encounter (statuses as of 08/29/2022) [address]10-2021 History of Past illness Narrative* Problem Noted Date Resolved Date Closed left subtrochanteric femur fracture 07/2207/27/2020 Facial numbness 03/31/2019 04/03/2019 GI bleed 12/31/2018 01/11/2019 Frequency of urination 03/19/2018 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 documented as of this encounter (statuses as of 09/16/2022) [address]10-2021 History of Past illness Narrative* Problem Noted Date Resolved Date Closed left subtrochanteric femur fracture 07/2207/27/2020 Facial numbness 03/31/2019 04/03/2019 GI bleed 12/31/2018 01/11/2019 Frequency of urination 03/19/2018 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 documented as of this encounter (statuses as of 09/18/2022) [address]10-2021 History of Past illness Narrative* Problem Noted Date Resolved Date Closed left subtrochanteric femur fracture 07/2207/27/2020 Facial numbness 03/31/2019 04/03/2019 GI bleed 12/31/2018 01/11/2019 Frequency of urination 03/19/2018 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 documented as of this encounter (statuses as of 09/26/2022) [address]10-2021 History of Past illness Narrative* Problem Noted Date Resolved Date Closed left subtrochanteric femur fracture 07/2207/27/2020 Facial numbness 03/31/2019 04/03/2019 GI bleed 12/31/2018 01/11/2019 Frequency of urination 03/19/2018 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 documented as of this encounter (statuses as of 10/03/2022) [address]10-2021 History of Past illness Narrative* Problem Noted Date Resolved Date Closed left subtrochanteric femur fracture 07/2207/27/2020 Facial numbness 03/31/2019 04/03/2019 GI bleed 12/31/2018 01/11/2019 Frequency of urination 03/19/2018 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 documented as of this encounter (statuses as of 10/10/2022) [address]10-2021 History of Past illness Narrative* Problem Noted Date Resolved Date Closed left subtrochanteric femur fracture 07/2207/27/2020 Facial numbness 03/31/2019 04/03/2019 GI bleed 12/31/2018 01/11/2019 Frequency of urination 03/19/2018 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 documented as of this encounter (statuses as of 10/10/2022) [address]10-2021 History of Past illness Narrative* Problem Noted Date Resolved Date Closed left subtrochanteric femur fracture 07/2207/27/2020 Facial numbness 03/31/2019 04/03/2019 GI bleed 12/31/2018 01/11/2019 Frequency of urination 03/19/2018 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 documented as of this encounter (statuses as of 10/10/2022) [address]10-2021 History of Past illness Narrative* Problem Noted Date Resolved Date Closed left subtrochanteric femur fracture 07/2207/27/2020 Facial numbness 03/31/2019 04/03/2019 GI bleed 12/31/2018 01/11/2019 Frequency of urination 03/19/2018 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 documented as of this encounter (statuses as of 10/17/2022) [address]10-2021 History of Past illness Narrative* Problem Noted Date Resolved Date Closed left subtrochanteric femur fracture 07/2207/27/2020 Facial numbness 03/31/2019 04/03/2019 GI bleed 12/31/2018 01/11/2019 Frequency of urination 03/19/2018 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 documented as of this encounter (statuses as of 10/17/2022) [address]10-2021 History of Past illness Narrative* Problem Noted Date Resolved Date Closed left subtrochanteric femur fracture 07/2207/27/2020 Facial numbness 03/31/2019 04/03/2019 GI bleed 12/31/2018 01/11/2019 Frequency of urination 03/19/2018 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 documented as of this encounter (statuses as of 10/18/2022) [address]10-2021 History of Past illness Narrative* Problem Noted Date Resolved Date Closed left subtrochanteric femur fracture 07/2207/27/2020 Facial numbness 03/31/2019 04/03/2019 GI bleed 12/31/2018 01/11/2019 Frequency of urination 03/19/2018 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 documented as of this encounter (statuses as of 10/18/2022) [address]10-2021 History of Past illness Narrative* Problem Noted Date Diagnosed Date Resolved Date Closed left subtrochanteric femur fracture 07/22/2020 07/27/2020 Facial numbness 03/31/2019 04/03/2019 GI bleed 12/31/2018 01/11/2019 Frequency of urination 03/19/201802/11 AVM (arteriovenous malformation) of colon 01/11/2019 documented as of this encounter (statuses as of 10/19/2022) [address]10-2021 History of Past illness Narrative* Problem Noted Date Diagnosed Date Resolved Date Closed left subtrochanteric femur fracture 07/22/2020 07/27/2020 Facial numbness 03/31/2019 04/03/2019 GI bleed 12/31/2018 01/11/2019 Frequency of urination 03/19/201802/11 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/11/2019 documented as of this encounter (statuses as of 10/22/2022) [address]10-2021 History of Past illness Narrative* Problem Noted Date Diagnosed Date Resolved Date Closed left subtrochanteric femur fracture 07/22/2020 07/27/2020 Facial numbness 03/31/2019 04/03/2019 GI bleed 12/31/2018 01/11/2019 Frequency of urination 03/19/201802/11 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/11/2019 documented as of this encounter (statuses as of 10/24/2022) [address]10-2021 History of Past illness Narrative* Problem Noted Date Diagnosed Date Resolved Date Closed left subtrochanteric femur fracture 07/22/2020 07/27/2020 Facial numbness 03/31/2019 04/03/2019 GI bleed 12/31/2018 01/11/2019 Frequency of urination 03/19/201802/11 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/11/2019 documented as of this encounter (statuses as of 10/24/2022) [address]10-2021 History of Past illness Narrative* Problem Noted Date Diagnosed Date Resolved Date Closed left subtrochanteric femur fracture 07/22/2020 07/27/2020 Facial numbness 03/31/2019 04/03/2019 GI bleed 12/31/2018 01/11/2019 Frequency of urination 03/19/201802/11 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/11/2019 documented as of this encounter (statuses as of 11/04/2022) [address]10-2021 History of Past illness Narrative* Problem Noted Date Diagnosed Date Resolved Date Closed left subtrochanteric femur fracture 07/22/2020 07/27/2020 Facial numbness 03/31/2019 04/03/2019 GI bleed 12/31/2018 01/11/2019 Frequency of urination 03/19/201802/11 AVM (arteriovenous malformation) of colon 01/11/2019 documented as of this encounter (statuses as of 11/06/2022) [address]10-2021 History of Past illness Narrative* Problem Noted Date Diagnosed Date Resolved Date Closed left subtrochanteric femur fracture 07/22/2020 07/27/2020 Facial numbness 03/31/2019 04/03/2019 GI bleed 12/31/2018 01/11/2019 Frequency of urination 03/19/201802/11 AVM (arteriovenous malformation) of colon 01/11/2019 documented as of this encounter (statuses as of 11/07/2022) [address]10-2021 History of Past illness Narrative* Problem Noted Date Diagnosed Date Resolved Date Closed left subtrochanteric femur fracture 07/22/2020 07/27/2020 Facial numbness 03/31/2019 04/03/2019 GI bleed 12/31/2018 01/11/2019 Frequency of urination 03/19/201802/11 AVM (arteriovenous malformation) of colon 01/11/2019 documented as of this encounter (statuses as of 11/12/2022) [address]10-2021 History of Past illness Narrative* Problem Noted Date Diagnosed Date Resolved Date Closed left subtrochanteric femur fracture 07/22/2020 07/27/2020 Facial numbness 03/31/2019 04/03/2019 GI bleed 12/31/2018 01/11/2019 Frequency of urination 03/19/201802/11 AVM (arteriovenous malformation) of colon 01/11/2019 documented as of this encounter (statuses as of 11/13/2022) [address]10-2021 History of Past illness Narrative* Problem Noted Date Diagnosed Date Resolved Date Closed left subtrochanteric femur fracture 07/22/2020 07/27/2020 Facial numbness 03/31/2019 04/03/2019 GI bleed 12/31/2018 01/11/2019 Frequency of urination 03/19/201802/11 AVM (arteriovenous malformation) of colon 01/11/2019 documented as of this encounter (statuses as of 11/15/2022) [address]10-2021 History of Past illness Narrative* Problem Noted Date Diagnosed Date Resolved Date Closed left subtrochanteric femur fracture 07/22/2020 07/27/2020 Facial numbness 03/31/2019 04/03/2019 GI bleed 12/31/2018 01/11/2019 Frequency of urination 03/19/201802/11 AVM (arteriovenous malformation) of colon 01/11/2019 documented as of this encounter (statuses as of 11/16/2022) [address]10-2021 History of Past illness Narrative* Problem Noted Date Diagnosed Date Resolved Date Closed left subtrochanteric femur fracture 07/22/2020 07/27/2020 Facial numbness 03/31/2019 04/03/2019 GI bleed 12/31/2018 01/11/2019 Frequency of urination 03/19/201802/11 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/11/2019 documented as of this encounter (statuses as of 11/18/2022) [address]10-2021 History of Past illness Narrative* Problem Noted Date Diagnosed Date Resolved Date Closed left subtrochanteric femur fracture 07/22/2020 07/27/2020 Facial numbness 03/31/2019 04/03/2019 GI bleed 12/31/2018 01/11/2019 Frequency of urination 03/19/201802/11 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 documented as of this encounter (statuses as of 11/21/2022) [address]10-2021 History of Past illness Narrative* Problem Noted Date Diagnosed Date Resolved Date Closed left subtrochanteric femur fracture 07/22/2020 07/27/2020 Facial numbness 03/31/2019 04/03/2019 GI bleed 12/31/2018 01/11/2019 Frequency of urination 03/19/201802/11 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 documented as of this encounter (statuses as of 11/22/2022) [address]10-2021 History of Past illness Narrative* Problem Noted Date Diagnosed Date Resolved Date Closed left subtrochanteric femur fracture 07/22/2020 07/27/2020 Facial numbness 03/31/2019 04/03/2019 GI bleed 12/31/2018 01/11/2019 Frequency of urination 03/19/201802/11 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 documented as of this encounter (statuses as of 11/23/2022) [address]10-2021 History of Past illness Narrative* Problem Noted Date Diagnosed Date Resolved Date Closed left subtrochanteric femur fracture 07/22/2020 07/27/2020 Facial numbness 03/31/2019 04/03/2019 GI bleed 12/31/2018 01/11/2019 Frequency of urination 03/19/201802/11 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 documented as of this encounter (statuses as of 11/24/2022) [address]10-2021 History of Past illness Narrative* Problem Noted Date Diagnosed Date Resolved Date Closed left subtrochanteric femur fracture 07/22/2020 07/27/2020 Facial numbness 03/31/2019 04/03/2019 GI bleed 12/31/2018 01/11/2019 Frequency of urination 03/19/201802/11 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 documented as of this encounter (statuses as of 11/26/2022) [address]10-2021 History of Past illness Narrative* Problem Noted Date Diagnosed Date Resolved Date Closed left subtrochanteric femur fracture 07/22/2020 07/27/2020 Facial numbness 03/31/2019 04/03/2019 GI bleed 12/31/2018 01/11/2019 Frequency of urination 03/19/201802/11 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 documented as of this encounter (statuses as of 11/27/2022) [address]10-2021 History of Past illness Narrative* Problem Noted Date Diagnosed Date Resolved Date Closed left subtrochanteric femur fracture 07/22/2020 07/27/2020 Facial numbness 03/31/2019 04/03/2019 GI bleed 12/31/2018 01/11/2019 Frequency of urination 03/19/201802/11 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 documented as of this encounter (statuses as of 11/27/2022) [address]10-2021 History of Past illness Narrative* Problem Noted Date Diagnosed Date Resolved Date Closed left subtrochanteric femur fracture 07/22/2020 07/27/2020 Facial numbness 03/31/2019 04/03/2019 GI bleed 12/31/2018 01/11/2019 Frequency of urination 03/19/201802/11 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 documented as of this encounter (statuses as of 11/28/2022) [address]10-2021 History of Past illness Narrative* Problem Noted Date Diagnosed Date Resolved Date Closed left subtrochanteric femur fracture 07/22/2020 07/27/2020 Facial numbness 03/31/2019 04/03/2019 GI bleed 12/31/2018 01/11/2019 Frequency of urination 03/19/201802/11 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 documented as of this encounter (statuses as of 11/28/2022) [address]10-2021 History of Past illness Narrative* Problem Noted Date Diagnosed Date Resolved Date Closed left subtrochanteric femur fracture 07/22/2020 07/27/2020 Facial numbness 03/31/2019 04/03/2019 GI bleed 12/31/2018 01/11/2019 Frequency of urination 03/19/201802/11 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 documented as of this encounter (statuses as of 11/29/2022) [address]10-2021 History of Past illness Narrative* Problem Noted Date Diagnosed Date Resolved Date Closed left subtrochanteric femur fracture 07/22/2020 07/27/2020 Facial numbness 03/31/2019 04/03/2019 GI bleed 12/31/2018 01/11/2019 Frequency of urination 03/19/201802/11 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 documented as of this encounter (statuses as of 12/09/2022) [address]10-2021 History of Past illness Narrative* Problem Noted Date Diagnosed Date Resolved Date Closed left subtrochanteric femur fracture 07/22/2020 07/27/2020 Facial numbness 03/31/2019 04/03/2019 GI bleed 12/31/2018 01/11/2019 Frequency of urination 03/19/201802/11 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 documented as of this encounter (statuses as of 12/10/2022) [facility] No data available for this section [facility]* Diagnosis Impaired functional mobility, balance, gait, and endurance- Primary Chronic pain of left knee Pain in joint, lower leg Left hip pain Pain in joint, pelvic region and thigh [facility] Diagnosis Elevated prostate specific antigen (PSA)- Primary Personal history of renal cancer Personal history of malignant neoplasm of kidney Hydrocele in adult Renal cancer, right (HCC) 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 [facility] Diagnosis Impaired functional mobility, balance, gait, and endurance- Primary [facility] Diagnosis Impaired functional mobility, balance, gait, and endurance- Primary Left hip pain Pain in joint, pelvic region and thigh Chronic pain of left knee Pain in joint, lower leg [facility] Impaired functional mobility, balance, gait, and endurance- Primary Left hip pain Pain in joint, pelvic region and thigh [facility] Diagnosis Impaired functional mobility, balance, gait, and endurance- Primary Left hip pain Pain in joint, pelvic region and thigh Chronic pain of left knee Pain in joint, lower leg Pain in left hip Pain in joint, pelvic region and thigh [facility] Diagnosis Impaired functional mobility, balance, gait, and endurance- Primary Chronic pain of left knee Pain in joint, lower leg Left hip pain Pain in joint, pelvic region and thigh [facility] Diagnosis Impaired functional mobility, balance, gait, and endurance- Primary Chronic pain of left knee Pain in joint, lower leg Left hip pain Pain in joint, pelvic region and thigh [facility] Diagnosis Impaired functional mobility, balance, gait, and endurance- Primary Chronic pain of left knee Pain in joint, lower leg Left hip pain Pain in joint, pelvic region and thigh [facility] Diagnosis CLL (chronic lymphocytic leukemia) (HCC)- [...] achieved remission [facility] Diagnosis Physical deconditioning- Primary Debility, unspecified [facility] Diagnosis Physical deconditioning- Primary Debility, unspecified Impaired functional mobility, balance, gait, and endurance [facility] Diagnosis Bronchitis- Primary Bronchitis, not specified as acute or chronic [facility] Diagnosis Physical deconditioning- Primary Debility, unspecified Impaired functional mobility, balance, gait, and endurance Muscular deconditioning Muscular wasting and disuse atrophy, not elsewhere classified [facility] Diagnosis Wheeze Wheezing [facility] Diagnosis Iron deficiency anemia due to chronic blood loss- Primary Iron deficiency anemia secondary to blood loss (chronic) Stage 2 chronic kidney disease AVM (arteriovenous malformation) of small bowel, acquired with hemorrhage Angiodysplasia of intestine with hemorrhage NSTEMI (non-ST elevated myocardial infarction) ([facility]) Acute myocardial infarction, subendocardial infarction, episode of care unspecified [facility] Diagnosis Physical deconditioning- Primary Debility, unspecified Impaired functional mobility, balance, gait, and endurance Muscular deconditioning Muscular wasting and disuse atrophy, not elsewhere classified [facility] Diagnosis Physical deconditioning- Primary Debility, unspecified Impaired functional mobility, balance, gait, and endurance Muscular deconditioning Muscular wasting and disuse atrophy, not elsewhere classified [facility] Diagnosis Physical deconditioning- Primary Debility, unspecified Impaired functional mobility, balance, gait, and endurance Muscular deconditioning Muscular wasting and disuse atrophy, not elsewhere classified [facility] Diagnosis Essential thrombocythemia (HCC)- Primary Essential thrombocythemia [facility] Diagnosis Physical deconditioning- Primary Debility, unspecified [facility] Diagnosis Physical deconditioning- Primary Debility, unspecified Impaired functional mobility, balance, gait, and endurance [facility] Diagnosis Other insomnia Renal cancer, right (HCC) CLL (chronic lymphocytic leukemia) (HCC) Chronic lymphoid leukemia, without mention of having achieved remission [facility] Diagnosis Chronic obstructive pulmonary disease with acute exacerbation (HCC)- Primary Obstructive chronic bronchitis with exacerbation Deep vein thrombosis (DVT) of left lower extremity, unspecified chronicity, unspecified vein (HCC) Localized swelling, mass and lump, left upper limb History of colonic polyps Personal history of colonic polyps [facility] Diagnosis Deep vein thrombosis (DVT) of left lower extremity, unspecified chronicity, unspecified vein (HCC) Localized swelling, mass and lump, left upper limb [facility] Diagnosis Iron deficiency anemia due to chronic blood loss- Primary Iron deficiency anemia secondary to blood loss (chronic) Acute deep vein thrombosis (DVT) of popliteal vein of left lower extremity (HCC) Right calf pain [facility] Diagnosis NSTEMI (non-ST elevated myocardial [...] thrombosis and embolism [facility] Diagnosis Chronic obstructive pulmonary disease with acute exacerbation (HCC) Obstructive chronic bronchitis with exacerbation [facility] Diagnosis Iron deficiency anemia due to chronic blood loss Iron deficiency anemia secondary to blood loss (chronic) Acute deep vein thrombosis (DVT) of popliteal vein of left lower extremity (HCC) Right calf pain [facility] Diagnosis Iron deficiency anemia due to chronic blood loss Iron deficiency anemia secondary to blood loss (chronic) Acute deep vein thrombosis (DVT) of popliteal vein of left lower extremity (HCC) Right calf pain [facility] Diagnosis Wheeze Wheezing [facility] Diagnosis Chronic obstructive pulmonary disease with acute exacerbation (HCC)- Primary Obstructive chronic bronchitis with exacerbation [facility] Diagnosis Other insomnia Renal cancer, [...] Dizziness and giddiness [facility] Diagnosis Essential thrombocythemia (HCC)- Primary Essential thrombocythemia [facility] Diagnosis 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 medical condition- Primary Mood disorder in conditions classified elsewhere [facility] Diagnosis CIRA on CPAP- Primary Obstructive sleep apnea (adult) (pediatric) Primary insomnia Persistent disorder of initiating or maintaining sleep Severe muscle deconditioning Other specific muscle disorders [facility]* Diagnosis CLL (chronic lymphocytic leukemia) (HCC)- Primary Chronic lymphoid leukemia, without mention of having achieved remission Essential thrombocythemia (HCC) Essential thrombocythemia Acute blood loss anemia- Primary Acute posthemorrhagic anemia Severe anemia Stage 3 chronic kidney disease, unspecified whether stage 3a or 3b CKD (HCC) Other iron deficiency anemia [facility]* Diagnosis Pulmonary embolism, unspecified chronicity, unspecified pulmonary embolism type, unspecified whether acute cor pulmonale present (HCC)- Primary Renal cancer, right (HCC) Deep vein thrombosis (DVT) of femoral vein of left lower extremity, unspecified chronicity (HCC) documented in this encounter [facility] note* Diagnosis Atrial fibrillation, unspecified type (CMS/HCC)- Primary documented in this encounter [facility] Work Phone: Evaluation note* Diagnosis Acute midline low back pain without sciatica- Primary Physical deconditioning Debility, unspecified documented in this encounter [facility] note* Diagnosis Physical deconditioning- Primary Debility, unspecified documented in this encounter [facility] note* Diagnosis Physical deconditioning- Primary Debility, unspecified Acute midline low back pain without sciatica Impaired functional mobility, balance, gait, and endurance documented in this encounter [facility] note* Diagnosis Physical deconditioning- Primary Debility, unspecified documented in this encounter [facility] note* Diagnosis Physical deconditioning- Primary Debility, unspecified documented in this encounter [facility] note* Diagnosis Physical deconditioning- Primary Debility, unspecified Acute midline low back pain without sciatica documented in this encounter [facility] note* Diagnosis Physical deconditioning- Primary Debility, unspecified documented in this encounter [facility] note* Diagnosis Physical deconditioning- Primary Debility, unspecified documented in this encounter [facility] note* Diagnosis Physical deconditioning- Primary Debility, unspecified Acute midline low back pain without sciatica Impaired functional mobility, balance, gait, and endurance documented in this encounter [facility] note* Diagnosis Acute midline low back pain without sciatica- Primary documented in this encounter [facility] note* Diagnosis Iron deficiency anemia due to chronic blood loss- Primary Iron deficiency anemia secondary to blood loss (chronic) documented in this encounter [facility] note* Diagnosis Other non-recurrent acute nonsuppurative otitis media of right ear- Primary Wheezing Acute cough documented in this encounter [facility] note* Diagnosis Iron deficiency anemia due to chronic blood loss- Primary Iron deficiency anemia secondary to blood loss (chronic) documented in this encounter [facility] note* Diagnosis Impaired functional mobility, balance, gait, and endurance- Primary [facility]* Diagnosis Impaired functional mobility, balance, gait, and endurance- Primary [facility] Diagnosis Impaired functional mobility, balance, gait, and endurance- Primary Acute midline low back pain without sciatica Physical deconditioning Debility, unspecified Muscular deconditioning Muscular wasting and disuse atrophy, not elsewhere classified [facility]* Diagnosis Diplopia- Primary Diplopia [facility] No data available for this section [facility] Instructions* Attachments The following attachments cannot be sent through Care Everywhere. * Ear Infection ED (Emirati) * Azithromycin (Systemic), ADULT ([facility]) [facility] No data available for this section [facility] Reason for referral (narrative)* Outpatient Procedure (Routine) - Pending Review Specialty Diagnoses / Procedures Referred By Yasmin t Referred To Contact [facility] Diagnoses History of colonic polyps Procedures COLONOSCOPY SCREENING COLONOSCOPY FLX DX W/COLLJ SPEC WHEN PFRMD Ulises Ramos DO [address] [place] [address] [facility] [place] [address] [place] [address] Referral ID Status Reason Start Date Expiration Date Visits Requested Visits Authorized [id number] Pending Review Auto-Generat ed Referral 07/02/2022 07/03/2023 1 1 * Diagnostic Procedure Only (Routine) - Pending Review Specialty Diagnoses / Procedures Referred By Yasmin carey Referred To Contact [facility] Diagnoses Deep vein thrombosis (DVT) of left lower extremity, unspecified chronicity, unspecified vein (HCC) Localized swelling, mass and lump, left upper limb Procedures US DVT LOWER LT DUP-SCAN XTR VEINS UNILATERAL/LIMITED STUDY Ulises Ramos DO [address] [place] [address] [facility] Referral ID Status Reason Start Date Expiration Date Visits Requested Visits Authorized [id number] Pending Review Auto-Generat ed Referral 07/02/2022 08/01/2023 1 1 * Outpatient Procedure (Routine) - Pending Review Specialty Diagnoses / Procedures Referred By Contac t Referred To Contact [facility] Diagnoses Chronic obstructive pulmonary disease with acute exacerbation (HCC) Procedures SPIROMETRY - BASELINE AND POST DILATOR BRNCDILAT RSPSE SPMTRY PRE&POST-BRNCDILAT ADMN Ulises Ramos, [address] [address] [facility] [place] [address] [place] [address] Referral ID Status Reason Start Date Expiration Date Visits Requested Visits Authorized [id number] Pending Review Auto-Generat ed Referral 07/02/2022 08/01/2023 1 1 [facility] for referral (narrative)* Diagnostic Procedure Only (Routine) - Closed Specialty Diagnoses / Procedures Referred By Contac t Referred To Contact [facility] Diagnoses Deep vein thrombosis (DVT) of left lower extremity, unspecified chronicity, unspecified vein (HCC) Localized swelling, mass and lump, left upper limb Procedures US DVT LOWER LT DUP-SCAN XTR VEINS UNILATERAL/LIMITED STUDY Ulises Ramos, [address] [place] [address] [facility] Referral ID Status Reason Start Date Expiration Date V isits Requested Visits Authorized [id number] Closed Auto-Generate d Referral 07/02/2022 08/01/2023 1 1 [facility] for referral (narrative)* Diagnostic Procedure Only (Routine) - Authorized Specialty Diagnoses / Procedures Referred By Contac t Referred To Contact [facility] Diagnoses Iron deficiency anemia due to chronic blood loss Acute deep vein thrombosis (DVT) of popliteal vein of left lower extremity (HCC) Right calf pain Procedures US EXTREMITY MASS/FLUID COLLECTION LEFT Ulises Ramos, DO [address] [place] [address] [facility] Referral ID Status Reason Start Date Expiration Date Visits Requested Visits Authorized [id number] Authorized Auto-Generat ed Referral 07/11/2022 08/10/2023 1 [...] UNILATERAL/LIMITED STUDY Ulises Ramos, DO [address] [place] [address] Us Imaging Referral ID Status Reason Start Date Expiration Date Visits Requested Visits Authorized [id number] Authorized Auto-Generat ed Referral 07/11/2022 08/10/2023 1 1 [facility] for referral (narrative)* Diagnostic Procedure Only (Routine) - Closed Specialty Diagnoses / Procedures Referred By Contac t Referred To Contact [facility] Diagnoses Iron deficiency anemia due to chronic blood loss Acute deep vein thrombosis (DVT) of popliteal vein of left lower extremity (HCC) Right calf pain Procedures US DVT LOWER RIGHT DUP-SCAN XTR VEINS UNILATERAL/LIMITED STUDY Ulises Ramos, DO [address] [place] [address] [facility] Imaging Referral ID Status Reason Start Date Expiration Date V isits Requested Visits Authorized [id number] Closed Auto-Generate d Referral 07/11/2022 08/10/2023 1 1 [facility] for referral (narrative)* Diagnostic Procedure Only (Routine) - Closed Specialty Diagnoses / Procedures Referred By Contac t Referred To Contact [facility] Diagnoses Iron deficiency anemia due to chronic blood loss Acute deep vein thrombosis (DVT) of popliteal vein of left lower extremity (HCC) Right calf pain Procedures US EXTREMITY MASS/FLUID COLLECTION LEFT Ulises Ramos, [address] [place] [address] Us Imaging Referral ID Status Reason Start Date Expiration Date V isits Requested Visits Authorized [id number] Closed Auto-Generate d Referral 07/11/2022 08/10/2023 1 1 [facility] for referral (narrative)* Outpatient Procedure (Routine) - Pending Review Specialty Diagnoses / Procedures Referred By Contac t Referred To [facility] Diagnoses Gastrointestinal hemorrhage, unspecified gastrointestinal hemorrhage type Procedures COLONOSCOPY DIAGNOSTIC COLONOSCOPY FLX DX W/COLLJ SPEC WHEN PFRMD Hortencia Gallardo MD [address] [place] [address] [address] Referral ID Status Reason Start Date Expiration Date Visits Requested Visits Authorized [id number] Pending Review Auto-Generat ed Referral 08/07/2022 08/08/2023 1 1 * Outpatient Procedure (Routine) - Pending Review Specialty Diagnoses / Procedures Referred By Contac t Referred To [facility] Diagnoses Gastrointestinal hemorrhage, unspecified gastrointestinal hemorrhage type Procedures ENTEROSCOPY ENDOSCOPY UPPER SMALL INTESTINE Hortencia Gallardo MD [address] [place] [address] [address] Referral ID Status Reason Start Date Expiration Date Visits Requested Visits Authorized [id number] Pending Review Auto-Generat ed Referral 08/07/2022 08/08/2023 1 1 [facility] for referral (narrative)* Outpatient Procedure (Routine) - Closed Specialty Diagnoses / Procedures Referred By Contac t Referred To Contact [facility] Diagnoses Gastrointestinal hemorrhage, unspecified gastrointestinal hemorrhage type Procedures COLONOSCOPY DIAGNOSTIC COLONOSCOPY FLX DX W/COLLJ SPEC WHEN PFRMD Hortencia Gallardo MD [address] [place] [address] [address] Referral ID Status Reason Start Date Expiration Date V isits Requested Visits Authorized [id number] Closed Auto-Generate d Referral 08/07/2022 08/08/2023 1 1 * Outpatient Procedure (Routine) - Closed Specialty Diagnoses / Procedures Referred By Contac t Referred To Contact [facility] Diagnoses Gastrointestinal hemorrhage, unspecified gastrointestinal hemorrhage type Procedures ENTEROSCOPY ENDOSCOPY UPPER SMALL INTESTINE Hortencia Gallardo MD [address] [place] [address] [address] Referral ID Status Reason Start Date Expiration Date V isits Requested Visits Authorized [id number] Closed Auto-Generate d Referral 08/07/2022 08/08/2023 1 1 [facility] for referral (narrative)* Diagnostic Procedure Only (Routine) - Closed Specialty Diagnoses / Procedures Referred By Contac t Referred To Contact [facility] Diagnoses Leg edema Procedures US DVT LOWER BILATERAL DUP-SCAN XTR VEINS COMPLETE BILATERAL STUDY Halle Dale MD [address] [place] [address] Us Imaging Referral ID Status Reason Start Date Expiration Date V isits Requested Visits Authorized [id number] Closed Auto-Generate d Referral 10/16/2022 11/15/2023 1 1 [facility] for referral (narrative)* Diagnostic Procedure Only (Routine) - Closed Specialty Diagnoses / Procedures Referred By Contac t Referred To Contact [facility] Diagnoses Leg edema Procedures US DVT LOWER BILATERAL DUP-SCAN XTR VEINS COMPLETE BILATERAL STUDY Halle Dale MD [address] [place] [address] Us Imaging Referral ID Status Reason Start Date Expiration Date V isits Requested Visits Authorized [id number] Closed Auto-Generate d Referral 10/16/2022 11/15/2023 1 1 [facility] for visit Narrative* Diagnostic Procedure Only (Routine) - Closed Specialty Diagnoses / Procedures Referred By Contac t Referred To Contact [facility] Diagnoses Deep vein thrombosis (DVT) of left lower extremity, unspecified chronicity, unspecified vein (HCC) Localized swelling, mass and lump, left upper limb Procedures US DVT LOWER LT DUP-SCAN XTR VEINS UNILATERAL/LIMITED STUDY Ulises Ramos, [address] [place] [address] Us Imaging Referral ID Status Reason Start Date Expiration Date V isits Requested Visits Authorized [id number] Closed Auto-Generate d Referral 07/02/2022 08/01/2023 1 1 [facility] for visit Narrative* Diagnostic Procedure Only (Routine) - Closed Specialty Diagnoses / Procedures Referred By Contac t Referred To Contact [facility] Diagnoses Iron deficiency anemia due to chronic blood loss Acute deep vein thrombosis (DVT) of popliteal vein of left lower extremity (HCC) Right calf pain Procedures US DVT LOWER RIGHT DUP-SCAN XTR VEINS UNILATERAL/LIMITED STUDY Ulises Ramos, [address] [place] [address] Us Imaging Referral ID Status Reason Start Date Expiration Date V isits Requested Visits Authorized [id number] Closed Auto-Generate d Referral 07/11/2022 08/10/2023 1 1 [facility] for visit Narrative* Diagnostic Procedure Only (Routine) - Closed Specialty Diagnoses / Procedures Referred By Contac t Referred To Contact [facility] Diagnoses Iron deficiency anemia due to chronic blood loss Acute deep vein thrombosis (DVT) of popliteal vein of left lower extremity (HCC) Right calf pain Procedures US EXTREMITY MASS/FLUID COLLECTION LEFT Ulises Ramos, DO [address] [place] [address] Us Imaging Referral ID Status Reason Start Date Expiration Date V isits Requested Visits Authorized [id number] Closed Auto-Generate d Referral 07/11/2022 08/10/2023 1 1 [facility] for visit Narrative* Outpatient Procedure (Routine) - Closed Specialty Diagnoses / Procedures Referred By Contac t Referred To Contact [facility] Diagnoses Gastrointestinal hemorrhage, unspecified gastrointestinal hemorrhage type Procedures COLONOSCOPY DIAGNOSTIC COLONOSCOPY FLX DX W/COLLJ SPEC WHEN Hortencia Henderson MD [address] [place] [address] [facility] [place] [address] [place] [address] Referral ID Status Reason Start Date Expiration Date V isits Requested Visits Authorized [id number] Closed Auto-Generate d Referral 08/07/2022 08/08/2023 1 1 [facility] for visit Narrative* Diagnostic Procedure Only (Routine) - Closed Specialty Diagnoses / Procedures Referred By Contac t Referred To Contact [facility] Diagnoses Leg edema Procedures US DVT LOWER BILATERAL DUP-SCAN XTR VEINS COMPLETE BILATERAL STUDY Halle Dale MD [address] [place] [address] Us Imaging Referral ID Status Reason Start Date Expiration Date V isits Requested Visits Authorized [id number] Closed Auto-Generate d Referral 10/16/2022 11/15/2023 1 1 [facility] for visit Narrative* Auth/Cert Specialty Diagnoses / Procedures Referred By Contac t Referred To Contact Diagnoses Diplopia Shelli Hernandez MD [address] [facility] [address] [place] [address] Phone: tel: fax: [facility] [address] [place] [address] Referral ID Status Reason Start Date Expiration Date Visits Re quested Visits Authorized [id number] [address] 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) 06/02/2017 1:46 PM [...] Comments Full Code Order Discussed With: Patient Documents on File Type Date Recorded 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 Advance Directives/Living Will 03/05/2024 [facility]Care Power of International Student Counselor 05/26/2021 Date Activated Date Inactivated Comments 11/20/2024 12:31 AM Reason for Referral Specialty Diagnoses / Procedures Referred By Contac t Referred To Contact Diagnoses Chronic insomnia Procedures CONSULT TO SLEEP MEDICINE - ADULT OFFICE/OUTPATIENT [facility] MDM 60-74 MINUTES Ulises Ramos, [address] [place] [address] Referral ID Status Reason Start Date Expiration Date Visits Requested Visits Authorized [id number] Authorized PCP Requested Referral 10/25/2021 10/25/2022 1 1 Specialty Diagnoses / Procedures Referred By Contac t Referred To Contact Diagnoses Chronic diarrhea Ulises Ramos DO [address] [place] [address] Referral ID Status Reason Start Date Expiration Date V isits Requested Visits Authorized [id number] Pending Review 1 1 Specialty Diagnoses / Procedures Referred By Contac t Referred To Contact [facility] Diagnoses Muscular deconditioning Procedures CONSULT TO PHYSICAL THERAPY PHYSICAL THERAPY EVALUATION HIGH COMPLEX 45 MINS Ulises Ramos DO [address] [place] [address] [facility] [place] [address] [place] [address] Referral ID Status Reason Start Date Expiration Date Visits Requested Visits Authorized [id number] Authorized PCP Requested Referral Auto-Generate d Referral 02/20/2022 02/20/2023 99 99 Specialty Diagnoses / Procedures Referred By Contac t Referred To Contact Hortencia Gallardo MD [address] [place] [address] Referral ID Status Reason Start Date Expiration Date V isits Requested Visits Authorized [id number] Pending Review 1 1 Specialty Diagnoses / Procedures Referred By Contac t Referred To Contact [facility] Diagnoses Physical deconditioning Procedures PT REHAB FOLLOW UP ORDER THERAPEUTIC EXERCISES RE, EA 15 MIN. Pt [facility] [address] [place] [address] [facility] [address] [address] Referral ID Status Reason Start Date Expiration Date Visits Requested Visits Authorized [id number] Pending Review PCP Requested Referral Auto-Generate d Referral 05/31/2022 08/29/2022 1 1 Specialty Diagnoses / Procedures Referred By Contac t Referred To Contact [facility] Diagnoses Chronic obstructive pulmonary disease with acute exacerbation (HCC) Procedures CONSULT TO PULM/CRITICAL CARE OFFICE/OUTPATIENT [facility] 60-74 MINUTES Ulises Ramos DO [address] [address] Referral ID Status Reason Start Date Expiration Date Visits Requested Visits Authorized [id number] Authorized PCP Requested Referral 07/25/2022 07/25/2023 1 1 Specialty Diagnoses / Procedures Referred By Contac t Referred To Contact CT IMAGING Diagnoses Chronic cough Procedures CT CHEST W IVCON DIAGNOSTIC COMPUTED TOMOGRAPHY THORAX W/CONTRAST Ulises Ramos DO [address] [address] Ct Imaging Referral ID Status Reason Start Date Expiration Date V isits Requested Visits Authorized [id number] Closed Auto-Generate d Referral 07/30/2022 08/29/2023 1 1 Specialty Diagnoses / Procedures Referred By Contac t Referred To Contact Diagnoses CIRA (obstructive sleep apnea) Ulises Ramos DO [address] [place] [address] Referral ID Status Reason Start Date Expiration Date V isits Requested Visits Authorized [id number] Pending Review 1 1 Specialty Diagnoses / Procedures Referred By Contac t Referred To Contact Psychology Diagnoses Renal cancer, right (HCC) Essential thrombocythemia (HCC) Procedures CONSULT TO PSYCHOLOGY OFFICE/OUTPATIENT [facility] 60-74 MINUTES Halle Dale MD [address] [place] [address] Referral ID Status Reason Start Date Expiration Date Visits Requested Visits Authorized [id number] Pending Review PCP Requested Referral 11/24/2022 11/24/2023 1 1 Specialty Diagnoses / Procedures Referred By Contac t Referred To Contact CT IMAGING Diagnoses Renal cancer, right (HCC) Procedures CT CHEST WO IVCON DIAGNOSTIC COMPUTED TOMOGRAPHY THORAX W/O CNTRST Halle Dale MD [address] [place] [address] Ct Imaging Referral ID Status Reason Start Date Expiration Date Visits Requested Visits Authorized [id number] Pending Review Auto-Generat ed Referral 3 12/24/2023 1 1 Specialty Diagnoses / Procedures Referred By Contac t Referred To Contact [facility] Diagnoses Severe muscle deconditioning Procedures CONSULT TO PHYSICAL THERAPY PHYSICAL THERAPY EVALUATION HIGH COMPLEX 45 MINS Nakul Gallegos MD [address] [facility] [address] [place] [address] [facility] [address] [address] Referral ID Status Reason Start Date Expiration Date Visits Requested Visits Authorized [id number] Authorized PCP Requested Referral Auto-Generate d Referral 12/13/2022 12/13/2023 99 99 Specialty Diagnoses / Procedures Referred By Contac t Referred To Contact Urology Diagnoses Primary insomnia Procedures CONSULT TO UROLOGY OFFICE/OUTPATIENT [facility] MDM 60-74 MINUTES Deo Hyatt MD [address] [place] [address] Referral ID Status Reason Start Date Expiration Date Visits Requested Visits Authorized [id number] Authorized PCP Requested Referral 12/13/2022 12/13/2023 1 1 Specialty Diagnoses / Procedures Referred By Contac t Referred To Contact Diagnoses Essential thrombocythemia (HCC) Procedures CONSULT TO [facility] Halle Dale MD [address] [place] [address] [address] [place] [address] Referral ID Status Reason Start Date Expiration Date Visits Requested Visits Authorized [id number] Pending Review PCP Requested Referral 12/18/2022 03/18/2023 1 1 Specialty Diagnoses / Procedures Referred By Contac t Referred To Contact Diagnoses Atrial fibrillation, unspecified type (CMS/HCC) Procedures ECG 12 lead (Clinic Performed) Melinda Kraft MD [address] [place] [address] Referral ID Status Reason Start Date Expiration Date V isits Requested Visits Authorized [id number] Pending Review 02/20/2023 02/20/2024 1 1 Medications [...] section and content) DATE CREATED AUTHOR [facility]01/2017 [facility] DATE CREATED AUTHOR AUTHOR'S ORGANIZ ATION 02/03/2021 [facility] DATE CREATED AUTHOR AUTHOR'S ORGANIZ ATION 02/04/2022 [facility] DATE CREATED AUTHOR AUTHOR'S ORGANIZ ATION 01/23/2023 [facility] nter DATE CREATED AUTHOR AUTHOR'S ORGANIZ ATION 02/22/2023 [facility] DATE CREATED AUTHOR AUTHOR'S ORGANIZ ATION 05/06/2023 [facility] [email or web address] [facility] DATE CREATED AUTHOR AUTHOR'S ORGANIZ ATION 05/10/2023 [facility] ([place]) DATE CREATED AUTHOR AUTHOR'S ORGANIZ ATION 08/27/2023 [facility] DATE CREATED AUTHOR AUTHOR'S ORGANIZ ATION 12/07/2023 [facility] DATE CREATED AUTHOR AUTHOR'S ORGANIZ ATION 02/13/2024 [facility] DATE CREATED AUTHOR AUTHOR'S ORGANIZ ATION 05/05/2024 [facility] DATE CREATED AUTHOR AUTHOR'S ORGANIZ ATION 06/04/2024 [facility] DATE CREATED AUTHOR AUTHOR'S ORGANIZ ATION 11/25/2024 [facility] DATE CREATED AUTHOR AUTHOR'S ORGANIZ ATION 12/02/2024 [facility] Source Comments (unrecognize d section and content) In the event this informatio n is protected by the Federal Confidentiality of Alcohol and Drug Abuse Patient Records regulations: The Federal rules restrict any use of the information to criminally investigate or prosecute any alcohol or drug abuse patient.[facility] the event this information is protected by the Federal Confidentiality of Alcohol and Drug Abuse Patient Records regulations: The Federal rules restrict any use of the information to criminally investigate or prosecute any alcohol or drug abuse patient.[facility]In the event this information is protected by the Federal Confidentiality of Alcohol and Drug Abuse Patient Records regulations: The Federal rules restrict any use of the information to criminally investigate or prosecute any alcohol or drug abuse patient.[facility]In the event this information is protected by the Federal Confidentiality of Alcohol and Drug Abuse Patient Records regulations: The Federal rules restrict any use of the information to criminally investigate or prosecute any alcohol or drug abuse patient.[facility]In the event this information is protected by the Federal Confidentiality of Alcohol and Drug Abuse Patient Records regulations: The Federal rules restrict any use of the information to criminally investigate or prosecute any alcohol or drug abuse patient.[facility]In the event this information is protected by the Federal Confidentiality of Alcohol and Drug Abuse Patient Records regulations: The Federal rules restrict any use of the information to criminally investigate or prosecute any alcohol or drug abuse patient.[facility]In the event this information is protected by the Federal Confidentiality of Alcohol and Drug Abuse Patient Records regulations: The Federal rules restrict any use of the information to criminally investigate or prosecute any alcohol or drug abuse patient.[facility] HospitalIn the event this information is protected by the Federal Confidentiality of Alcohol and Drug Abuse Patient Records regulations: The Federal rules restrict any use of the information to criminally investigate or prosecute any alcohol or drug abuse patient.[facility] HospitalIn the event this information is protected by the Federal Confidentiality of Alcohol and Drug Abuse Patient Records regulations: The Federal rules restrict any use of the information to criminally investigate or prosecute any alcohol or drug abuse patient.[facility] HospitalIn the event this information is protected by the Federal Confidentiality of Alcohol and Drug Abuse Patient Records regulations: The Federal rules restrict any use of the information to criminally investigate or prosecute any alcohol or drug abuse patient.[facility] HospitalIn the event this information is protected by the Federal Confidentiality of Alcohol and Drug Abuse Patient Records regulations: The Federal rules restrict any use of the information to criminally investigate or prosecute any alcohol or drug abuse patient.[facility]In the event this information is protected by the Federal Confidentiality of Alcohol and Drug Abuse Patient Records regulations: The Federal rules restrict any use of the information to criminally investigate or prosecute any alcohol or drug abuse patient.[facility]In the event this information is protected by the Federal Confidentiality of Alcohol and Drug Abuse Patient Records regulations: The Federal rules restrict any use of the information to criminally investigate or prosecute any alcohol or drug abuse patient.[facility]In the event this information is protected by the Federal Confidentiality of Alcohol and Drug Abuse Patient Records regulations: The Federal rules restrict any use of the information to criminally investigate or prosecute any alcohol or drug abuse patient.[facility] HospitalIn the event this information is protected by the Federal Confidentiality of Alcohol and Drug Abuse Patient Records regulations: The Federal rules restrict any use of the information to criminally investigate or prosecute any alcohol or drug abuse patient.[facility] HospitalIn the event this information is protected by the Federal Confidentiality of Alcohol and Drug Abuse Patient Records regulations: The Federal rules restrict any use of the information to criminally investigate or prosecute any alcohol or drug abuse patient.[facility]In the event this information is protected by the Federal Confidentiality of Alcohol and Drug Abuse Patient Records regulations: The Federal rules restrict any use of the information to criminally investigate or prosecute any alcohol or drug abuse patient.[facility]In the event this information is protected by the Federal Confidentiality of Alcohol and Drug Abuse Patient Records regulations: The Federal rules restrict any use of the information to criminally investigate or prosecute any alcohol or drug abuse patient.[facility] HospitalIn the event this information is protected by the Federal Confidentiality of Alcohol and Drug Abuse Patient Records regulations: The Federal rules restrict any use of the information to criminally investigate or prosecute any alcohol or drug abuse patient.[facility] HospitalIn the event this information is protected by the Federal Confidentiality of Alcohol and Drug Abuse Patient Records regulations: The Federal rules restrict any use of the information to criminally investigate or prosecute any alcohol or drug abuse patient.[facility] HospitalIn the event this information is protected by the Federal Confidentiality of Alcohol and Drug Abuse Patient Records regulations: The Federal rules restrict any use of the information to criminally investigate or prosecute any alcohol or drug abuse patient.[facility] HospitalIn the event this information is protected by the Federal Confidentiality of Alcohol and Drug Abuse Patient Records regulations: The Federal rules restrict any use of the information to criminally investigate or prosecute any alcohol or drug abuse patient.[facility] HospitalIn the event this information is protected by the Federal Confidentiality of Alcohol and Drug Abuse Patient Records regulations: The Federal rules restrict any use of the information to criminally investigate or prosecute any alcohol or drug abuse patient.[facility]In the event this information is protected by the Federal Confidentiality of Alcohol and Drug Abuse Patient Records regulations: The Federal rules restrict any use of the information to criminally investigate or prosecute any alcohol or drug abuse patient.[facility]In the event this information is protected by the Federal Confidentiality of Alcohol and Drug Abuse Patient Records regulations: The Federal rules restrict any use of the information to criminally investigate or prosecute any alcohol or drug abuse patient.[facility] HospitalIn the event this information is protected by the Federal Confidentiality of Alcohol and Drug Abuse Patient Records regulations: The Federal rules restrict any use of the information to criminally investigate or prosecute any alcohol or drug abuse patient.[facility] HospitalIn the event this information is protected by the Federal Confidentiality of Alcohol and Drug Abuse Patient Records regulations: The Federal rules restrict any use of the information to criminally investigate or prosecute any alcohol or drug abuse patient.[facility] HospitalIn the event this information is protected by the Federal Confidentiality of Alcohol and Drug Abuse Patient Records regulations: The Federal rules restrict any use of the information to criminally investigate or prosecute any alcohol or drug abuse patient.[facility] HospitalIn the event this information is protected by the Federal Confidentiality of Alcohol and Drug Abuse Patient Records regulations: The Federal rules restrict any use of the information to criminally investigate or prosecute any alcohol or drug abuse patient.[facility] HospitalIn the event this information is protected by the Federal Confidentiality of Alcohol and Drug Abuse Patient Records regulations: The Federal rules restrict any use of the information to criminally investigate or prosecute any alcohol or drug abuse patient.[facility] HospitalIn the event this information is protected by the Federal Confidentiality of Alcohol and Drug Abuse Patient Records regulations: The Federal rules restrict any use of the information to criminally investigate or prosecute any alcohol or drug abuse patient.[facility] HospitalIn the event this information is protected by the Federal Confidentiality of Alcohol and Drug Abuse Patient Records regulations: The Federal rules restrict any use of the information to criminally investigate or prosecute any alcohol or drug abuse patient.[facility] HospitalIn the event this information is protected by the Federal Confidentiality of Alcohol and Drug Abuse Patient Records regulations: The Federal rules restrict any use of the information to criminally investigate or prosecute any alcohol or drug abuse patient.[facility] HospitalIn the event this information is protected by the Federal Confidentiality of Alcohol and Drug Abuse Patient Records regulations: The Federal rules restrict any use of the information to criminally investigate or prosecute any alcohol or drug abuse patient.[facility] HospitalIn the event this information is protected by the Federal Confidentiality of Alcohol and Drug Abuse Patient Records regulations: The Federal rules restrict any use of the information to criminally investigate or prosecute any alcohol or drug abuse patient.[facility] HospitalIn the event this information is protected by the Federal Confidentiality of Alcohol and Drug Abuse Patient Records regulations: The Federal rules restrict any use of the information to criminally investigate or prosecute any alcohol or drug abuse patient.[facility] HospitalIn the event this information is protected by the Federal Confidentiality of Alcohol and Drug Abuse Patient Records regulations: The Federal rules restrict any use of the information to criminally investigate or prosecute any alcohol or drug abuse patient.[facility] HospitalIn the event this information is protected by the Federal Confidentiality of Alcohol and Drug Abuse Patient Records regulations: The Federal rules restrict any use of the information to criminally investigate or prosecute any alcohol or drug abuse patient.[facility] HospitalIn the event this information is protected by the Federal Confidentiality of Alcohol and Drug Abuse Patient Records regulations: The Federal rules restrict any use of the information to criminally investigate or prosecute any alcohol or drug abuse patient.[facility] HospitalIn the event this information is protected by the Federal Confidentiality of Alcohol and Drug Abuse Patient Records regulations: The Federal rules restrict any use of the information to criminally investigate or prosecute any alcohol or drug abuse patient.[facility] HospitalIn the event this information is protected by the Federal Confidentiality of Alcohol and Drug Abuse Patient Records regulations: The Federal rules restrict any use of the information to criminally investigate or prosecute any alcohol or drug abuse patient.[facility] HospitalIn the event this information is protected by the Federal Confidentiality of Alcohol and Drug Abuse Patient Records regulations: The Federal rules restrict any use of the information to criminally investigate or prosecute any alcohol or drug abuse patient.[facility] HospitalIn the event this information is protected by the Federal Confidentiality of Alcohol and Drug Abuse Patient Records regulations: The Federal rules restrict any use of the information to criminally investigate or prosecute any alcohol or drug abuse patient.[facility] HospitalIn the event this information is protected by the Federal Confidentiality of Alcohol and Drug Abuse Patient Records regulations: The Federal rules restrict any use of the information to criminally investigate or prosecute any alcohol or drug abuse patient.[facility] HospitalIn the event this information is protected by the Federal Confidentiality of Alcohol and Drug Abuse Patient Records regulations: The Federal rules restrict any use of the information to criminally investigate or prosecute any alcohol or drug abuse patient.[facility] HospitalIn the event this information is protected by the Federal Confidentiality of Alcohol and Drug Abuse Patient Records regulations: The Federal rules restrict any use of the information to criminally investigate or prosecute any alcohol or drug abuse patient.[facility] HospitalIn the event this information is protected by the Federal Confidentiality of Alcohol and Drug Abuse Patient Records regulations: The Federal rules restrict any use of the information to criminally investigate or prosecute any alcohol or drug abuse patient.[facility]In the event this information is protected by the Federal Confidentiality of Alcohol and Drug Abuse Patient Records regulations: The Federal rules restrict any use of the information to criminally investigate or prosecute any alcohol or drug abuse patient.[facility] HospitalIn the event this information is protected by the Federal Confidentiality of Alcohol and Drug Abuse Patient Records regulations: The Federal rules restrict any use of the information to criminally investigate or prosecute any alcohol or drug abuse patient.[facility] HospitalIn the event this information is protected by the Federal Confidentiality of Alcohol and Drug Abuse Patient Records regulations: The Federal rules restrict any use of the information to criminally investigate or prosecute any alcohol or drug abuse patient.[facility] HospitalIn the event this information is protected by the Federal Confidentiality of Alcohol and Drug Abuse Patient Records regulations: The Federal rules restrict any use of the information to criminally investigate or prosecute any alcohol or drug abuse patient.[facility] HospitalIn the event this information is protected by the Federal Confidentiality of Alcohol and Drug Abuse Patient Records regulations: The Federal rules restrict any use of the information to criminally investigate or prosecute any alcohol or drug abuse patient.[facility]In the event this information is protected by the Federal Confidentiality of Alcohol and Drug Abuse Patient Records regulations: The Federal rules restrict any use of the information to criminally investigate or prosecute any alcohol or drug abuse patient.[facility] HospitalIn the event this information is protected by the Federal Confidentiality of Alcohol and Drug Abuse Patient Records regulations: The Federal rules restrict any use of the information to criminally investigate or prosecute any alcohol or drug abuse patient.[facility]In the event this information is protected by the Federal Confidentiality of Alcohol and Drug Abuse Patient Records regulations: The Federal rules restrict any use of the information to criminally investigate or prosecute any alcohol or drug abuse patient.[facility]In the event this information is protected by the Federal Confidentiality of Alcohol and Drug Abuse Patient Records regulations: The Federal rules restrict any use of the information to criminally investigate or prosecute any alcohol or drug abuse patient.[facility] HospitalIn the event this information is protected by the Federal Confidentiality of Alcohol and Drug Abuse Patient Records regulations: The Federal rules restrict any use of the information to criminally investigate or prosecute any alcohol or drug abuse patient.[facility]In the event this information is protected by the Federal Confidentiality of Alcohol and Drug Abuse Patient Records regulations: The Federal rules restrict any use of the information to criminally investigate or prosecute any alcohol or drug abuse patient.[facility]In the event this information is protected by the Federal Confidentiality of Alcohol and Drug Abuse Patient Records regulations: The Federal rules restrict any use of the information to criminally investigate or prosecute any alcohol or drug abuse patient.[facility]In the event this information is protected by the Federal Confidentiality of Alcohol and Drug Abuse Patient Records regulations: The Federal rules restrict any use of the information to criminally investigate or prosecute any alcohol or drug abuse patient.[facility]In the event this information is protected by the Federal Confidentiality of Alcohol and Drug Abuse Patient Records regulations: The Federal rules restrict any use of the information to criminally investigate or prosecute any alcohol or drug abuse patient.[facility] HospitalIn the event this information is protected by the Federal Confidentiality of Alcohol and Drug Abuse Patient Records regulations: The Federal rules restrict any use of the information to criminally investigate or prosecute any alcohol or drug abuse patient.[facility] HospitalIn the event this information is protected by the Federal Confidentiality of Alcohol and Drug Abuse Patient Records regulations: The Federal rules restrict any use of the information to criminally investigate or prosecute any alcohol or drug abuse patient.[facility]In the event this information is protected by the Federal Confidentiality of Alcohol and Drug Abuse Patient Records regulations: The Federal rules restrict any use of the information to criminally investigate or prosecute any alcohol or drug abuse patient.[facility]In the event this information is protected by the Federal Confidentiality of Alcohol and Drug Abuse Patient Records regulations: The Federal rules restrict any use of the information to criminally investigate or prosecute any alcohol or drug abuse patient.[facility]In the event this information is protected by the Federal Confidentiality of Alcohol and Drug Abuse Patient Records regulations: The Federal rules restrict any use of the information to criminally investigate or prosecute any alcohol or drug abuse patient.[facility]In the event this information is protected by the Federal Confidentiality of Alcohol and Drug Abuse Patient Records regulations: The Federal rules restrict any use of the information to criminally investigate or prosecute any alcohol or drug abuse patient.[facility] HospitalIn the event this information is protected by the Federal Confidentiality of Alcohol and Drug Abuse Patient Records regulations: The Federal rules restrict any use of the information to criminally investigate or prosecute any alcohol or drug abuse patient.[facility]In the event this information is protected by the Federal Confidentiality of Alcohol and Drug Abuse Patient Records regulations: The Federal rules restrict any use of the information to criminally investigate or prosecute any alcohol or drug abuse patient.[facility]In the event this information is protected by the Federal Confidentiality of Alcohol and Drug Abuse Patient Records regulations: The Federal rules restrict any use of the information to criminally investigate or prosecute any alcohol or drug abuse patient.[facility]In the event this information is protected by the Federal Confidentiality of Alcohol and Drug Abuse Patient Records regulations: The Federal rules restrict any use of the information to criminally investigate or prosecute any alcohol or drug abuse patient.[facility]In the event this information is protected by the Federal Confidentiality of Alcohol and Drug Abuse Patient Records regulations: The Federal rules restrict any use of the information to criminally investigate or prosecute any alcohol or drug abuse patient.[facility]In the event this information is protected by the Federal Confidentiality of Alcohol and Drug Abuse Patient Records regulations: The Federal rules restrict any use of the information to criminally investigate or prosecute any alcohol or drug abuse patient.[facility]In the event this information is protected by the Federal Confidentiality of Alcohol and Drug Abuse Patient Records regulations: The Federal rules restrict any use of the information to criminally investigate or prosecute any alcohol or drug abuse patient.[facility]In the event this information is protected by the Federal Confidentiality of Alcohol and Drug Abuse Patient Records regulations: The Federal rules restrict any use of the information to criminally investigate or prosecute any alcohol or drug abuse patient.[facility]In the event this information is protected by the Federal Confidentiality of Alcohol and Drug Abuse Patient Records regulations: The Federal rules restrict any use of the information to criminally investigate or prosecute any alcohol or drug abuse patient.[facility]In the event this information is protected by the Federal Confidentiality of Alcohol and Drug Abuse Patient Records regulations: The Federal rules restrict any use of the information to criminally investigate or prosecute any alcohol or drug abuse patient.[facility]In the event this information is protected by the Federal Confidentiality of Alcohol and Drug Abuse Patient Records regulations: The Federal rules restrict any use of the information to criminally investigate or prosecute any alcohol or drug abuse patient.[facility]In the event this information is protected by the Federal Confidentiality of Alcohol and Drug Abuse Patient Records regulations: The Federal rules restrict any use of the information to criminally investigate or prosecute any alcohol or drug abuse patient.[facility]In the event this information is protected by the Federal Confidentiality of Alcohol and Drug Abuse Patient Records regulations: The Federal rules restrict any use of the information to criminally investigate or prosecute any alcohol or drug abuse patient.[facility]In the event this information is protected by the Federal Confidentiality of Alcohol and Drug Abuse Patient Records regulations: The Federal rules restrict any use of the information to criminally investigate or prosecute any alcohol or drug abuse patient.[facility]In the event this information is protected by the Federal Confidentiality of Alcohol and Drug Abuse Patient Records regulations: The Federal rules restrict any use of the information to criminally investigate or prosecute any alcohol or drug abuse patient.[facility]In the event this information is protected by the Federal Confidentiality of Alcohol and Drug Abuse Patient Records regulations: The Federal rules restrict any use of the information to criminally investigate or prosecute any alcohol or drug abuse patient.[facility] HospitalIn the event this information is protected by the Federal Confidentiality of Alcohol and Drug Abuse Patient Records regulations: The Federal rules restrict any use of the information to criminally investigate or prosecute any alcohol or drug abuse patient.[facility]In the event this information is protected by the Federal Confidentiality of Alcohol and Drug Abuse Patient Records regulations: The Federal rules restrict any use of the information to criminally investigate or prosecute any alcohol or drug abuse patient.[facility]In the event this information is protected by the Federal Confidentiality of Alcohol and Drug Abuse Patient Records regulations: The Federal rules restrict any use of the information to criminally investigate or prosecute any alcohol or drug abuse patient.[facility] HospitalIn the event this information is protected by the Federal Confidentiality of Alcohol and Drug Abuse Patient Records regulations: The Federal rules restrict any use of the information to criminally investigate or prosecute any alcohol or drug abuse patient.[facility]In the event this information is protected by the Federal Confidentiality of Alcohol and Drug Abuse Patient Records regulations: The Federal rules restrict any use of the information to criminally investigate or prosecute any alcohol or drug abuse patient.[facility] HospitalIn the event this information is protected by the Federal Confidentiality of Alcohol and Drug Abuse Patient Records regulations: The Federal rules restrict any use of the information to criminally investigate or prosecute any alcohol or drug abuse patient.[facility] HospitalIn the event this information is protected by the Federal Confidentiality of Alcohol and Drug Abuse Patient Records regulations: The Federal rules restrict any use of the information to criminally investigate or prosecute any alcohol or drug abuse patient.[facility] HospitalIn the event this information is protected by the Federal Confidentiality of Alcohol and Drug Abuse Patient Records regulations: The Federal rules restrict any use of the information to criminally investigate or prosecute any alcohol or drug abuse patient.[facility] HospitalIn the event this information is protected by the Federal Confidentiality of Alcohol and Drug Abuse Patient Records regulations: The Federal rules restrict any use of the information to criminally investigate or prosecute any alcohol or drug abuse patient.[facility] HospitalIn the event this information is protected by the Federal Confidentiality of Alcohol and Drug Abuse Patient Records regulations: The Federal rules restrict any use of the information to criminally investigate or prosecute any alcohol or drug abuse patient.[facility] HospitalIn the event this information is protected by the Federal Confidentiality of Alcohol and Drug Abuse Patient Records regulations: The Federal rules restrict any use of the information to criminally investigate or prosecute any alcohol or drug abuse patient.[facility] HospitalIn the event this information is protected by the Federal Confidentiality of Alcohol and Drug Abuse Patient Records regulations: The Federal rules restrict any use of the information to criminally investigate or prosecute any alcohol or drug abuse patient.[facility] HospitalIn the event this information is protected by the Federal Confidentiality of Alcohol and Drug Abuse Patient Records regulations: The Federal rules restrict any use of the information to criminally investigate or prosecute any alcohol or drug abuse patient.[facility] HospitalIn the event this information is protected by the Federal Confidentiality of Alcohol and Drug Abuse Patient Records regulations: The Federal rules restrict any use of the information to criminally investigate or prosecute any alcohol or drug abuse patient.[facility] HospitalIn the event this information is protected by the Federal Confidentiality of Alcohol and Drug Abuse Patient Records regulations: The Federal rules restrict any use of the information to criminally investigate or prosecute any alcohol or drug abuse patient.[facility] HospitalIn the event this information is protected by the Federal Confidentiality of Alcohol and Drug Abuse Patient Records regulations: The Federal rules restrict any use of the information to criminally investigate or prosecute any alcohol or drug abuse patient.[facility] HospitalIn the event this information is protected by the Federal Confidentiality of Alcohol and Drug Abuse Patient Records regulations: The Federal rules restrict any use of the information to criminally investigate or prosecute any alcohol or drug abuse patient.[facility] HospitalIn the event this information is protected by the Federal Confidentiality of Alcohol and Drug Abuse Patient Records regulations: The Federal rules restrict any use of the information to criminally investigate or prosecute any alcohol or drug abuse patient.[facility] HospitalIn the event this information is protected by the Federal Confidentiality of Alcohol and Drug Abuse Patient Records regulations: The Federal rules restrict any use of the information to criminally investigate or prosecute any alcohol or drug abuse patient.[facility] HospitalIn the event this information is protected by the Federal Confidentiality of Alcohol and Drug Abuse Patient Records regulations: The Federal rules restrict any use of the information to criminally investigate or prosecute any alcohol or drug abuse patient.[facility] HospitalIn the event this information is protected by the Federal Confidentiality of Alcohol and Drug Abuse Patient Records regulations: The Federal rules restrict any use of the information to criminally investigate or prosecute any alcohol or drug abuse patient.[facility] HospitalIn the event this information is protected by the Federal Confidentiality of Alcohol and Drug Abuse Patient Records regulations: The Federal rules restrict any use of the information to criminally investigate or prosecute any alcohol or drug abuse patient.[facility] HospitalIn the event this information is protected by the Federal Confidentiality of Alcohol and Drug Abuse Patient Records regulations: The Federal rules restrict any use of the information to criminally investigate or prosecute any alcohol or drug abuse patient.[facility] HospitalIn the event this information is protected by the Federal Confidentiality of Alcohol and Drug Abuse Patient Records regulations: The Federal rules restrict any use of the information to criminally investigate or prosecute any alcohol or drug abuse patient.[facility] HospitalIn the event this information is protected by the Federal Confidentiality of Alcohol and Drug Abuse Patient Records regulations: The Federal rules restrict any use of the information to criminally investigate or prosecute any alcohol or drug abuse patient.[facility] HospitalIn the event this information is protected by the Federal Confidentiality of Alcohol and Drug Abuse Patient Records regulations: The Federal rules restrict any use of the information to criminally investigate or prosecute any alcohol or drug abuse patient.[facility] HospitalIn the event this information is protected by the Federal Confidentiality of Alcohol and Drug Abuse Patient Records regulations: The Federal rules restrict any use of the information to criminally investigate or prosecute any alcohol or drug abuse patient.[facility] HospitalIn the event this information is protected by the Federal Confidentiality of Alcohol and Drug Abuse Patient Records regulations: The Federal rules restrict any use of the information to criminally investigate or prosecute any alcohol or drug abuse patient.[facility] HospitalIn the event this information is protected by the Federal Confidentiality of Alcohol and Drug Abuse Patient Records regulations: The Federal rules restrict any use of the information to criminally investigate or prosecute any alcohol or drug abuse patient.[facility] HospitalIn the event this information is protected by the Federal Confidentiality of Alcohol and Drug Abuse Patient Records regulations: The Federal rules restrict any use of the information to criminally investigate or prosecute any alcohol or drug abuse patient.[facility] HospitalIn the event this information is protected by the Federal Confidentiality of Alcohol and Drug Abuse Patient Records regulations: The Federal rules restrict any use of the information to criminally investigate or prosecute any alcohol or drug abuse patient.[facility] HospitalIn the event this information is protected by the Federal Confidentiality of Alcohol and Drug Abuse Patient Records regulations: The Federal rules restrict any use of the information to criminally investigate or prosecute any alcohol or drug abuse patient.[facility] HospitalIn the event this information is protected by the Federal Confidentiality of Alcohol and Drug Abuse Patient Records regulations: The Federal rules restrict any use of the information to criminally investigate or prosecute any alcohol or drug abuse patient.[facility] HospitalIn the event this information is protected by the Federal Confidentiality of Alcohol and Drug Abuse Patient Records regulations: The Federal rules restrict any use of the information to criminally investigate or prosecute any alcohol or drug abuse patient.[facility] HospitalIn the event this information is protected by the Federal Confidentiality of Alcohol and Drug Abuse Patient Records regulations: The Federal rules restrict any use of the information to criminally investigate or prosecute any alcohol or drug abuse patient.[facility] HospitalIn the event this information is protected by the Federal Confidentiality of Alcohol and Drug Abuse Patient Records regulations: The Federal rules restrict any use of the information to criminally investigate or prosecute any alcohol or drug abuse patient.[facility] HospitalIn the event this information is protected by the Federal Confidentiality of Alcohol and Drug Abuse Patient Records regulations: The Federal rules restrict any use of the information to criminally investigate or prosecute any alcohol or drug abuse patient.[facility] HospitalIn the event this information is protected by the Federal Confidentiality of Alcohol and Drug Abuse Patient Records regulations: The Federal rules restrict any use of the information to criminally investigate or prosecute any alcohol or drug abuse patient.[facility] HospitalIn the event this information is protected by the Federal Confidentiality of Alcohol and Drug Abuse Patient Records regulations: The Federal rules restrict any use of the information to criminally investigate or prosecute any alcohol or drug abuse patient.[facility] HospitalIn the event this information is protected by the Federal Confidentiality of Alcohol and Drug Abuse Patient Records regulations: The Federal rules restrict any use of the information to criminally investigate or prosecute any alcohol or drug abuse patient.[facility] HospitalIn the event this information is protected by the Federal Confidentiality of Alcohol and Drug Abuse Patient Records regulations: The Federal rules restrict any use of the information to criminally investigate or prosecute any alcohol or drug abuse patient.[facility] HospitalIn the event this information is protected by the Federal Confidentiality of Alcohol and Drug Abuse Patient Records regulations: The Federal rules restrict any use of the information to criminally investigate or prosecute any alcohol or drug abuse patient.[facility] HospitalIn the event this information is protected by the Federal Confidentiality of Alcohol and Drug Abuse Patient Records regulations: The Federal rules restrict any use of the information to criminally investigate or prosecute any alcohol or drug abuse patient.[facility] HospitalIn the event this information is protected by the Federal Confidentiality of Alcohol and Drug Abuse Patient Records regulations: The Federal rules restrict any use of the information to criminally investigate or prosecute any alcohol or drug abuse patient.[facility] HospitalIn the event this information is protected by the Federal Confidentiality of Alcohol and Drug Abuse Patient Records regulations: The Federal rules restrict any use of the information to criminally investigate or prosecute any alcohol or drug abuse patient.[facility] HospitalIn the event this information is protected by the Federal Confidentiality of Alcohol and Drug Abuse Patient Records regulations: The Federal rules restrict any use of the information to criminally investigate or prosecute any alcohol or drug abuse patient.[facility] HospitalIn the event this information is protected by the Federal Confidentiality of Alcohol and Drug Abuse Patient Records regulations: The Federal rules restrict any use of the information to criminally investigate or prosecute any alcohol or drug abuse patient.[facility] HospitalIn the event this information is protected by the Federal Confidentiality of Alcohol and Drug Abuse Patient Records regulations: The Federal rules restrict any use of the information to criminally investigate or prosecute any alcohol or drug abuse patient.[facility] HospitalIn the event this information is protected by the Federal Confidentiality of Alcohol and Drug Abuse Patient Records regulations: The Federal rules restrict any use of the information to criminally investigate or prosecute any alcohol or drug abuse patient.[facility] HospitalIn the event this information is protected by the Federal Confidentiality of Alcohol and Drug Abuse Patient Records regulations: The Federal rules restrict any use of the information to criminally investigate or prosecute any alcohol or drug abuse patient.[facility] HospitalIn the event this information is protected by the Federal Confidentiality of Alcohol and Drug Abuse Patient Records regulations: The Federal rules restrict any use of the information to criminally investigate or prosecute any alcohol or drug abuse patient.[facility] HospitalIn the event this information is protected by the Federal Confidentiality of Alcohol and Drug Abuse Patient Records regulations: The Federal rules restrict any use of the information to criminally investigate or prosecute any alcohol or drug abuse patient.[facility] HospitalIn the event this information is protected by the Federal Confidentiality of Alcohol and Drug Abuse Patient Records regulations: The Federal rules restrict any use of the information to criminally investigate or prosecute any alcohol or drug abuse patient.[facility] HospitalIn the event this information is protected by the Federal Confidentiality of Alcohol and Drug Abuse Patient Records regulations: The Federal rules restrict any use of the information to criminally investigate or prosecute any alcohol or drug abuse patient.[facility] HospitalIn the event this information is protected by the Federal Confidentiality of Alcohol and Drug Abuse Patient Records regulations: The Federal rules restrict any use of the information to criminally investigate or prosecute any alcohol or drug abuse patient.[facility] HospitalIn the event this information is protected by the Federal Confidentiality of Alcohol and Drug Abuse Patient Records regulations: The Federal rules restrict any use of the information to criminally investigate or prosecute any alcohol or drug abuse patient.[facility] HospitalIn the event this information is protected by the Federal Confidentiality of Alcohol and Drug Abuse Patient Records regulations: The Federal rules restrict any use of the information to criminally investigate or prosecute any alcohol or drug abuse patient.[facility] HospitalIn the event this information is protected by the Federal Confidentiality of Alcohol and Drug Abuse Patient Records regulations: The Federal rules restrict any use of the information to criminally investigate or prosecute any alcohol or drug abuse patient.[facility] HospitalIn the event this information is protected by the Federal Confidentiality of Alcohol and Drug Abuse Patient Records regulations: The Federal rules restrict any use of the information to criminally investigate or prosecute any alcohol or drug abuse patient.[facility] HospitalIn the event this information is protected by the Federal Confidentiality of Alcohol and Drug Abuse Patient Records regulations: The Federal rules restrict any use of the information to criminally investigate or prosecute any alcohol or drug abuse patient.[facility] HospitalIn the event this information is protected by the Federal Confidentiality of Alcohol and Drug Abuse Patient Records regulations: The Federal rules restrict any use of the information to criminally investigate or prosecute any alcohol or drug abuse patient.[facility] HospitalIn the event this information is protected by the Federal Confidentiality of Alcohol and Drug Abuse Patient Records regulations: The Federal rules restrict any use of the information to criminally investigate or prosecute any alcohol or drug abuse patient.[facility] HospitalIn the event this information is protected by the Federal Confidentiality of Alcohol and Drug Abuse Patient Records regulations: The Federal rules restrict any use of the information to criminally investigate or prosecute any alcohol or drug abuse patient.[facility] HospitalIn the event this information is protected by the Federal Confidentiality of Alcohol and Drug Abuse Patient Records regulations: The Federal rules restrict any use of the information to criminally investigate or prosecute any alcohol or drug abuse patient.[facility] HospitalIn the event this information is protected by the Federal Confidentiality of Alcohol and Drug Abuse Patient Records regulations: The Federal rules restrict any use of the information to criminally investigate or prosecute any alcohol or drug abuse patient.[facility] HospitalIn the event this information is protected by the Federal Confidentiality of Alcohol and Drug Abuse Patient Records regulations: The Federal rules restrict any use of the information to criminally investigate or prosecute any alcohol or drug abuse patient.[facility] HospitalIn the event this information is protected by the Federal Confidentiality of Alcohol and Drug Abuse Patient Records regulations: The Federal rules restrict any use of the information to criminally investigate or prosecute any alcohol or drug abuse patient.[facility] HospitalIn the event this information is protected by the Federal Confidentiality of Alcohol and Drug Abuse Patient Records regulations: The Federal rules restrict any use of the information to criminally investigate or prosecute any alcohol or drug abuse patient.[facility] HospitalIn the event this information is protected by the Federal Confidentiality of Alcohol and Drug Abuse Patient Records regulations: The Federal rules restrict any use of the information to criminally investigate or prosecute any alcohol or drug abuse patient.[facility]In the event this information is protected by the Federal Confidentiality of Alcohol and Drug Abuse Patient Records regulations: The Federal rules restrict any use of the information to criminally investigate or prosecute any alcohol or drug abuse patient.[facility] HospitalIn the event this information is protected by the Federal Confidentiality of Alcohol and Drug Abuse Patient Records regulations: The Federal rules restrict any use of the information to criminally investigate or prosecute any alcohol or drug abuse patient.[facility] HospitalIn the event this information is protected by the Federal Confidentiality of Alcohol and Drug Abuse Patient Records regulations: The Federal rules restrict any use of the information to criminally investigate or prosecute any alcohol or drug abuse patient.[facility] HospitalIn the event this information is protected by the Federal Confidentiality of Alcohol and Drug Abuse Patient Records regulations: The Federal rules restrict any use of the information to criminally investigate or prosecute any alcohol or drug abuse patient.[facility] HospitalIn the event this information is protected by the Federal Confidentiality of Alcohol and Drug Abuse Patient Records regulations: The Federal rules restrict any use of the information to criminally investigate or prosecute any alcohol or drug abuse patient.[facility] HospitalIn the event this information is protected by the Federal Confidentiality of Alcohol and Drug Abuse Patient Records regulations: The Federal rules restrict any use of the information to criminally investigate or prosecute any alcohol or drug abuse patient.[facility]In the event this information is protected by the Federal Confidentiality of Alcohol and Drug Abuse Patient Records regulations: The Federal rules restrict any use of the information to criminally investigate or prosecute any alcohol or drug abuse patient.[facility]In the event this information is protected by the Federal Confidentiality of Alcohol and Drug Abuse Patient Records regulations: The Federal rules restrict any use of the information to criminally investigate or prosecute any alcohol or drug abuse patient.[facility]In the event this information is protected by the Federal Confidentiality of Alcohol and Drug Abuse Patient Records regulations: The Federal rules restrict any use of the information to criminally investigate or prosecute any alcohol or drug abuse patient.[facility]In the event this information is protected by the Federal Confidentiality of Alcohol and Drug Abuse Patient Records regulations: The Federal rules restrict any use of the information to criminally investigate or prosecute any alcohol or drug abuse patient.[facility]In the event this information is protected by the Federal Confidentiality of Alcohol and Drug Abuse Patient Records regulations: The Federal rules restrict any use of the information to criminally investigate or prosecute any alcohol or drug abuse patient.[facility] HospitalIn the event this information is protected by the Federal Confidentiality of Alcohol and Drug Abuse Patient Records regulations: The Federal rules restrict any use of the information to criminally investigate or prosecute any alcohol or drug abuse patient.[facility]In the event this information is protected by the Federal Confidentiality of Alcohol and Drug Abuse Patient Records regulations: The Federal rules restrict any use of the information to criminally investigate or prosecute any alcohol or drug abuse patient.[facility]In the event this information is protected by the Federal Confidentiality of Alcohol and Drug Abuse Patient Records regulations: The Federal rules restrict any use of the information to criminally investigate or prosecute any alcohol or drug abuse patient.[facility]In the event this information is protected by the Federal Confidentiality of Alcohol and Drug Abuse Patient Records regulations: The Federal rules restrict any use of the information to criminally investigate or prosecute any alcohol or drug abuse patient.[facility]In the event this information is protected by the Federal Confidentiality of Alcohol and Drug Abuse Patient Records regulations: The Federal rules restrict any use of the information to criminally investigate or prosecute any alcohol or drug abuse patient.[facility]In the event this information is protected by the Federal Confidentiality of Alcohol and Drug Abuse Patient Records regulations: The Federal rules restrict any use of the information to criminally investigate or prosecute any alcohol or drug abuse patient.[facility]In the event this information is protected by the Federal Confidentiality of Alcohol and Drug Abuse Patient Records regulations: The Federal rules restrict any use of the information to criminally investigate or prosecute any alcohol or drug abuse patient.[facility] HospitalIn the event this information is protected by the Federal Confidentiality of Alcohol and Drug Abuse Patient Records regulations: The Federal rules restrict any use of the information to criminally investigate or prosecute any alcohol or drug abuse patient.[facility] HospitalIn the event this information is protected by the Federal Confidentiality of Alcohol and Drug Abuse Patient Records regulations: The Federal rules restrict any use of the information to criminally investigate or prosecute any alcohol or drug abuse patient.[facility] HospitalIn the event this information is protected by the Federal Confidentiality of Alcohol and Drug Abuse Patient Records regulations: The Federal rules restrict any use of the information to criminally investigate or prosecute any alcohol or drug abuse patient.[facility] HospitalIn the event this information is protected by the Federal Confidentiality of Alcohol and Drug Abuse Patient Records regulations: The Federal rules restrict any use of the information to criminally investigate or prosecute any alcohol or drug abuse patient.[facility] HospitalIn the event this information is protected by the Federal Confidentiality of Alcohol and Drug Abuse Patient Records regulations: The Federal rules restrict any use of the information to criminally investigate or prosecute any alcohol or drug abuse patient.[facility] HospitalIn the event this information is protected by the Federal Confidentiality of Alcohol and Drug Abuse Patient Records regulations: The Federal rules restrict any use of the information to criminally investigate or prosecute any alcohol or drug abuse patient.[facility] HospitalIn the event this information is protected by the Federal Confidentiality of Alcohol and Drug Abuse Patient Records regulations: The Federal rules restrict any use of the information to criminally investigate or prosecute any alcohol or drug abuse patient.[facility] HospitalIn the event this information is protected by the Federal Confidentiality of Alcohol and Drug Abuse Patient Records regulations: The Federal rules restrict any use of the information to criminally investigate or prosecute any alcohol or drug abuse patient.[facility] HospitalIn the event this information is protected by the Federal Confidentiality of Alcohol and Drug Abuse Patient Records regulations: The Federal rules restrict any use of the information to criminally investigate or prosecute any alcohol or drug abuse patient.[facility] HospitalIn the event this information is protected by the Federal Confidentiality of Alcohol and Drug Abuse Patient Records regulations: The Federal rules restrict any use of the information to criminally investigate or prosecute any alcohol or drug abuse patient.[facility] HospitalIn the event this information is protected by the Federal Confidentiality of Alcohol and Drug Abuse Patient Records regulations: The Federal rules restrict any use of the information to criminally investigate or prosecute any alcohol or drug abuse patient.[facility] HospitalIn the event this information is protected by the Federal Confidentiality of Alcohol and Drug Abuse Patient Records regulations: The Federal rules restrict any use of the information to criminally investigate or prosecute any alcohol or drug abuse patient.[facility] HospitalIn the event this information is protected by the Federal Confidentiality of Alcohol and Drug Abuse Patient Records regulations: The Federal rules restrict any use of the information to criminally investigate or prosecute any alcohol or drug abuse patient.[facility] HospitalIn the event this information is protected by the Federal Confidentiality of Alcohol and Drug Abuse Patient Records regulations: The Federal rules restrict any use of the information to criminally investigate or prosecute any alcohol or drug abuse patient.[facility] HospitalIn the event this information is protected by the Federal Confidentiality of Alcohol and Drug Abuse Patient Records regulations: The Federal rules restrict any use of the information to criminally investigate or prosecute any alcohol or drug abuse patient.[facility] HospitalIn the event this information is protected by the Federal Confidentiality of Alcohol and Drug Abuse Patient Records regulations: The Federal rules restrict any use of the information to criminally investigate or prosecute any alcohol or drug abuse patient.[facility] HospitalIn the event this information is protected by the Federal Confidentiality of Alcohol and Drug Abuse Patient Records regulations: The Federal rules restrict any use of the information to criminally investigate or prosecute any alcohol or drug abuse patient.[facility] HospitalIn the event this information is protected by the Federal Confidentiality of Alcohol and Drug Abuse Patient Records regulations: The Federal rules restrict any use of the information to criminally investigate or prosecute any alcohol or drug abuse patient.[facility] HospitalIn the event this information is protected by the Federal Confidentiality of Alcohol and Drug Abuse Patient Records regulations: The Federal rules restrict any use of the information to criminally investigate or prosecute any alcohol or drug abuse patient.[facility] HospitalIn the event this information is protected by the Federal Confidentiality of Alcohol and Drug Abuse Patient Records regulations: The Federal rules restrict any use of the information to criminally investigate or prosecute any alcohol or drug abuse patient.[facility] HospitalIn the event this information is protected by the Federal Confidentiality of Alcohol and Drug Abuse Patient Records regulations: The Federal rules restrict any use of the information to criminally investigate or prosecute any alcohol or drug abuse patient.[facility] HospitalIn the event this information is protected by the Federal Confidentiality of Alcohol and Drug Abuse Patient Records regulations: The Federal rules restrict any use of the information to criminally investigate or prosecute any alcohol or drug abuse patient.[facility] HospitalIn the event this information is protected by the Federal Confidentiality of Alcohol and Drug Abuse Patient Records regulations: The Federal rules restrict any use of the information to criminally investigate or prosecute any alcohol or drug abuse patient.[facility] HospitalIn the event this information is protected by the Federal Confidentiality of Alcohol and Drug Abuse Patient Records regulations: The Federal rules restrict any use of the information to criminally investigate or prosecute any alcohol or drug abuse patient.[facility] HospitalIn the event this information is protected by the Federal Confidentiality of Alcohol and Drug Abuse Patient Records regulations: The Federal rules restrict any use of the information to criminally investigate or prosecute any alcohol or drug abuse patient.[facility] HospitalIn the event this information is protected by the Federal Confidentiality of Alcohol and Drug Abuse Patient Records regulations: The Federal rules restrict any use of the information to criminally investigate or prosecute any alcohol or drug abuse patient.[facility] HospitalIn the event this information is protected by the Federal Confidentiality of Alcohol and Drug Abuse Patient Records regulations: The Federal rules restrict any use of the information to criminally investigate or prosecute any alcohol or drug abuse patient.[facility] HospitalIn the event this information is protected by the Federal Confidentiality of Alcohol and Drug Abuse Patient Records regulations: The Federal rules restrict any use of the information to criminally investigate or prosecute any alcohol or drug abuse patient.[facility] HospitalIn the event this information is protected by the Federal Confidentiality of Alcohol and Drug Abuse Patient Records regulations: The Federal rules restrict any use of the information to criminally investigate or prosecute any alcohol or drug abuse patient.[facility] HospitalIn the event this information is protected by the Federal Confidentiality of Alcohol and Drug Abuse Patient Records regulations: The Federal rules restrict any use of the information to criminally investigate or prosecute any alcohol or drug abuse patient.[facility] HospitalIn the event this information is protected by the Federal Confidentiality of Alcohol and Drug Abuse Patient Records regulations: The Federal rules restrict any use of the information to criminally investigate or prosecute any alcohol or drug abuse patient.[facility] HospitalIn the event this information is protected by the Federal Confidentiality of Alcohol and Drug Abuse Patient Records regulations: The Federal rules restrict any use of the information to criminally investigate or prosecute any alcohol or drug abuse patient.[facility] HospitalIn the event this information is protected by the Federal Confidentiality of Alcohol and Drug Abuse Patient Records regulations: The Federal rules restrict any use of the information to criminally investigate or prosecute any alcohol or drug abuse patient.[facility] HospitalIn the event this information is protected by the Federal Confidentiality of Alcohol and Drug Abuse Patient Records regulations: The Federal rules restrict any use of the information to criminally investigate or prosecute any alcohol or drug abuse patient.[facility] HospitalIn the event this information is protected by the Federal Confidentiality of Alcohol and Drug Abuse Patient Records regulations: The Federal rules restrict any use of the information to criminally investigate or prosecute any alcohol or drug abuse patient.[facility] HospitalIn the event this information is protected by the Federal Confidentiality of Alcohol and Drug Abuse Patient Records regulations: The Federal rules restrict any use of the information to criminally investigate or prosecute any alcohol or drug abuse patient.[facility] HospitalIn the event this information is protected by the Federal Confidentiality of Alcohol and Drug Abuse Patient Records regulations: The Federal rules restrict any use of the information to criminally investigate or prosecute any alcohol or drug abuse patient.[facility] HospitalIn the event this information is protected by the Federal Confidentiality of Alcohol and Drug Abuse Patient Records regulations: The Federal rules restrict any use of the information to criminally investigate or prosecute any alcohol or drug abuse patient.[facility] HospitalIn the event this information is protected by the Federal Confidentiality of Alcohol and Drug Abuse Patient Records regulations: The Federal rules restrict any use of the information to criminally investigate or prosecute any alcohol or drug abuse patient.[facility] HospitalIn the event this information is protected by the Federal Confidentiality of Alcohol and Drug Abuse Patient Records regulations: The Federal rules restrict any use of the information to criminally investigate or prosecute any alcohol or drug abuse patient.[facility] HospitalIn the event this information is protected by the Federal Confidentiality of Alcohol and Drug Abuse Patient Records regulations: The Federal rules restrict any use of the information to criminally investigate or prosecute any alcohol or drug abuse patient.[facility] HospitalIn the event this information is protected by the Federal Confidentiality of Alcohol and Drug Abuse Patient Records regulations: The Federal rules restrict any use of the information to criminally investigate or prosecute any alcohol or drug abuse patient.[facility] HospitalIn the event this information is protected by the Federal Confidentiality of Alcohol and Drug Abuse Patient Records regulations: The Federal rules restrict any use of the information to criminally investigate or prosecute any alcohol or drug abuse patient.[facility] HospitalIn the event this information is protected by the Federal Confidentiality of Alcohol and Drug Abuse Patient Records regulations: The Federal rules restrict any use of the information to criminally investigate or prosecute any alcohol or drug abuse patient.[facility] HospitalIn the event this information is protected by the Federal Confidentiality of Alcohol and Drug Abuse Patient Records regulations: The Federal rules restrict any use of the information to criminally investigate or prosecute any alcohol or drug abuse patient.[facility] HospitalIn the event this information is protected by the Federal Confidentiality of Alcohol and Drug Abuse Patient Records regulations: The Federal rules restrict any use of the information to criminally investigate or prosecute any alcohol or drug abuse patient.[facility] HospitalIn the event this information is protected by the Federal Confidentiality of Alcohol and Drug Abuse Patient Records regulations: The Federal rules restrict any use of the information to criminally investigate or prosecute any alcohol or drug abuse patient.[facility] HospitalIn the event this information is protected by the Federal Confidentiality of Alcohol and Drug Abuse Patient Records regulations: The Federal rules restrict any use of the information to criminally investigate or prosecute any alcohol or drug abuse patient.[facility] HospitalIn the event this information is protected by the Federal Confidentiality of Alcohol and Drug Abuse Patient Records regulations: The Federal rules restrict any use of the information to criminally investigate or prosecute any alcohol or drug abuse patient.[facility] HospitalIn the event this information is protected by the Federal Confidentiality of Alcohol and Drug Abuse Patient Records regulations: The Federal rules restrict any use of the information to criminally investigate or prosecute any alcohol or drug abuse patient.[facility] HospitalIn the event this information is protected by the Federal Confidentiality of Alcohol and Drug Abuse Patient Records regulations: The Federal rules restrict any use of the information to criminally investigate or prosecute any alcohol or drug abuse patient.[facility] HospitalIn the event this information is protected by the Federal Confidentiality of Alcohol and Drug Abuse Patient Records regulations: The Federal rules restrict any use of the information to criminally investigate or prosecute any alcohol or drug abuse patient.[facility] HospitalIn the event this information is protected by the Federal Confidentiality of Alcohol and Drug Abuse Patient Records regulations: The Federal rules restrict any use of the information to criminally investigate or prosecute any alcohol or drug abuse patient.[facility] HospitalIn the event this information is protected by the Federal Confidentiality of Alcohol and Drug Abuse Patient Records regulations: The Federal rules restrict any use of the information to criminally investigate or prosecute any alcohol or drug abuse patient.[facility] HospitalIn the event this information is protected by the Federal Confidentiality of Alcohol and Drug Abuse Patient Records regulations: The Federal rules restrict any use of the information to criminally investigate or prosecute any alcohol or drug abuse patient.[facility] HospitalIn the event this information is protected by the Federal Confidentiality of Alcohol and Drug Abuse Patient Records regulations: The Federal rules restrict any use of the information to criminally investigate or prosecute any alcohol or drug abuse patient.[facility] HospitalIn the event this information is protected by the Federal Confidentiality of Alcohol and Drug Abuse Patient Records regulations: The Federal rules restrict any use of the information to criminally investigate or prosecute any alcohol or drug abuse patient.[facility] HospitalIn the event this information is protected by the Federal Confidentiality of Alcohol and Drug Abuse Patient Records regulations: The Federal rules restrict any use of the information to criminally investigate or prosecute any alcohol or drug abuse patient.[facility] HospitalIn the event this information is protected by the Federal Confidentiality of Alcohol and Drug Abuse Patient Records regulations: The Federal rules restrict any use of the information to criminally investigate or prosecute any alcohol or drug abuse patient.[facility] HospitalIn the event this information is protected by the Federal Confidentiality of Alcohol and Drug Abuse Patient Records regulations: The Federal rules restrict any use of the information to criminally investigate or prosecute any alcohol or drug abuse patient.[facility] HospitalIn the event this information is protected by the Federal Confidentiality of Alcohol and Drug Abuse Patient Records regulations: The Federal rules restrict any use of the information to criminally investigate or prosecute any alcohol or drug abuse patient.[facility] HospitalIn the event this information is protected by the Federal Confidentiality of Alcohol and Drug Abuse Patient Records regulations: The Federal rules restrict any use of the information to criminally investigate or prosecute any alcohol or drug abuse patient.[facility] HospitalIn the event this information is protected by the Federal Confidentiality of Alcohol and Drug Abuse Patient Records regulations: The Federal rules restrict any use of the information to criminally investigate or prosecute any alcohol or drug abuse patient.[facility] HospitalIn the event this information is protected by the Federal Confidentiality of Alcohol and Drug Abuse Patient Records regulations: The Federal rules restrict any use of the information to criminally investigate or prosecute any alcohol or drug abuse patient.[facility] HospitalIn the event this information is protected by the Federal Confidentiality of Alcohol and Drug Abuse Patient Records regulations: The Federal rules restrict any use of the information to criminally investigate or prosecute any alcohol or drug abuse patient.[facility] HospitalIn the event this information is protected by the Federal Confidentiality of Alcohol and Drug Abuse Patient Records regulations: The Federal rules restrict any use of the information to criminally investigate or prosecute any alcohol or drug abuse patient.[facility] HospitalIn the event this information is protected by the Federal Confidentiality of Alcohol and Drug Abuse Patient Records regulations: The Federal rules restrict any use of the information to criminally investigate or prosecute any alcohol or drug abuse patient.[facility] HospitalIn the event this information is protected by the Federal Confidentiality of Alcohol and Drug Abuse Patient Records regulations: The Federal rules restrict any use of the information to criminally investigate or prosecute any alcohol or drug abuse patient.[facility] HospitalIn the event this information is protected by the Federal Confidentiality of Alcohol and Drug Abuse Patient Records regulations: The Federal rules restrict any use of the information to criminally investigate or prosecute any alcohol or drug abuse patient.[facility] HospitalIn the event this information is protected by the Federal Confidentiality of Alcohol and Drug Abuse Patient Records regulations: The Federal rules restrict any use of the information to criminally investigate or prosecute any alcohol or drug abuse patient.[facility] HospitalIn the event this information is protected by the Federal Confidentiality of Alcohol and Drug Abuse Patient Records regulations: The Federal rules restrict any use of the information to criminally investigate or prosecute any alcohol or drug abuse patient.[facility] HospitalIn the event this information is protected by the Federal Confidentiality of Alcohol and Drug Abuse Patient Records regulations: The Federal rules restrict any use of the information to criminally investigate or prosecute any alcohol or drug abuse patient.[facility] HospitalIn the event this information is protected by the Federal Confidentiality of Alcohol and Drug Abuse Patient Records regulations: The Federal rules restrict any use of the information to criminally investigate or prosecute any alcohol or drug abuse patient.[facility] Reason for Visit (unrecogniz ed section and content) Reason Comments PT Eval Specialty Diagnoses / Procedures Referred By Contac t Referred To Contact PHYSICAL THERAPY Diagnoses Physical deconditioning Procedures CONSULT TO PHYSICAL THERAPY PHYSICAL THERAPY EVALUATION HIGH COMPLEX 45 MINS Ernesto, Leighton Chi [address] [address] Referral ID Status Reason Start Date Expiration Date Visits Requested Visits Authorized [id number] Authorized PCP Requested Referral Auto-Generate d Referral 04/14/2023 04/13/2024 99 99 Reason Comments Physical Therapy Specialty Diagnoses / Procedures Referred By Contac t Referred To Contact PHYSICAL THERAPY Diagnoses Physical deconditioning Procedures CONSULT TO PHYSICAL THERAPY PHYSICAL THERAPY EVALUATION HIGH COMPLEX 45 MINS Ulises Ramos, [address] [place] [address] [address] Specialty Diagnoses / Procedures Referred By Contac t Referred To Contact [facility] Diagnoses Physical deconditioning Procedures CONSULT TO PHYSICAL THERAPY PHYSICAL THERAPY EVALUATION HIGH COMPLEX 45 MINS Ulises Ramos, [address] [place] [address] [facility] [address] [place] [address] Referral ID Status Reason Start Date Expiration Date Visits Requested Visits Authorized [id number] Authorized PCP Requested Referral Auto-Generate d Referral 12/19/2022 12/19/2023 99 99 Reason Comments PT Discharge Specialty Diagnoses / Procedures Referred By Contac t Referred To Contact Physical Therapy / PHYSICAL THERAPY Diagnoses Muscular deconditioning [R29.898] Procedures EST RS PT ORTH MSK Ulises Ramos, DO [address] [place] [address] Sia Hodge, PT [address] [place] [address] Referral ID Status Reason Start Date Expiration Date V isits Requested Visits Authorized [id number] Authorized 04/14/2022 04/13/2023 20 20 Specialty Diagnoses / Procedures Referred By Contac t Referred To Contact [facility] Diagnoses History of left hip replacement Procedures CONSULT TO PHYSICAL THERAPY PHYSICAL THERAPY EVALUATION HIGH COMPLEX 45 MINS Ulises Ramos, DO [address] [place] [address] [facility] [address] [place] [address] Referral ID Status Reason Start Date Expiration Date V isits Requested Visits Authorized [id number] Authorized 04/14/2021 04/13/2022 20 20 Reason Comments [...] Expiration Date V isits Requested Visits Authorized [id number] Authorized 04/14/2021 04/13/2022 99 99 Reason Onset [...] loss Halle Dale MD [address] [facility] [address] [place] [address] Arturo Treat [facility] [address] [place] [address] Referral ID Status Reason Start Date Expiration Date V isits Requested Visits Authorized [id number] Authorized 02/19/2022 05/20/2022 99 99 Reason Onset Date Comments Community Monitoring Outreach 03/14/2022 Specialty Diagnoses / Procedures Referred By Contac t Referred To Contact [facility] Diagnoses Muscular deconditioning Procedures CONSULT TO PHYSICAL THERAPY PHYSICAL THERAPY EVALUATION HIGH COMPLEX 45 MINS Ulises Ramos, [address] [place] [address] [facility] [address] [place] [address] Referral ID Status Reason Start Date Expiration Date Visits Requested Visits Authorized [id number] Authorized PCP Requested Referral Auto-Generate d Referral [...] RS PT ORTH MSK Ulises Ramos, DO [address] [place] [address] Sia Hodge, PT [address] [place] [address] Reason Comments Cough Since April/greeni sh bee [...] RSPSE SPMTRY PRE&POST-BRNCDILAT ADMN Ulises Ramos, DO [address] [place] [address] [facility] [address] [place] [address] Referral ID Status Reason Start Date Expiration Date V isits Requested Visits Authorized [id number] Closed Auto-Generate d Referral 07/02/2022 08/01/2023 1 1 Reason Comments Care Coordination Reason Comments Credit Verifier - Other NIKOLAS Phillip Reason Comments Referral Request Reason Comments Consult Reason Comments Rectal Bleeding Specialty Diagnoses / Procedures [facility] IMAGING Diagnoses Chronic cough Procedures CT CHEST W IVCON DIAGNOSTIC COMPUTED TOMOGRAPHY THORAX W/CONTRAST Ulises Ramos, [address] [place] [address] Ct Imaging Referral ID Status Reason Start Date Expiration Date V isits Requested Visits Authorized [id number] Closed Auto-Generate d Referral 07/30/2022 08/29/2023 1 [...] Established Patient Reason Comments Appointment Psychology (new [facility] ent exam) with Dr Yoselin Dobbs 12/09/22, CT Chest 02/24/23, Follow up OV 03/05. Pt notified Reason Comments Escalation of Care Reason Comments Patient Question Patient Update Shortness of Breath Reason Comments Depression Reason Comments Sleep Apnea Specialty Diagnoses / Procedures [facility] Referred To Contact Diagnoses Chronic insomnia Procedures CONSULT TO SLEEP MEDICINE - ADULT OFFICE/OUTPATIENT NEW [facility] MDM [id number] MINUTES Ulises Ramos, [address] [place] [address] Referral ID Status Reason Start Date Expiration Date V isits Requested Visits Authorized [id number] Closed PCP Requested Referral 07/30/2022 07/30/2023 1 1 Reason Comments Returning Patient's Call Reason Comments Home Care Reason Comments Nutrition Counseling Weight Loss Reason Comments Home Care Confirmation Call Reason Onset Date Comments Transition Of Care 01/01/2023 TCM follow-up Reason Comments Symptoms Reason Comments Release Of Medical Records Adult geriatr ics eriberto fajardo Reason Comments Appointment Fyi- called patient to schedule his follow up appt. Pt declined and states he is no longer following up with [facility] providers-mir Reason Onset Date Comments Community Monitoring Outreach 01/15/2023 Reason Comments New Patient Visit Specialty Diagnoses / Procedures Referred By Contac t Referred To Contact Diagnoses Atrial fibrillation, unspecified type (CMS/[facility]) Procedures ECG 12 lead (Clinic Performed) Melinda Kraft MD [address] [place] [address] Referral ID Status Reason Start Date Expiration Date V isits Requested Visits Authorized [id number] Pending Review 02/20/2023 02/20/2024 1 1 Reason [...] Care Teams (unrecognized sec tion and content) Income Tax Adjuster Relationship Specialty Start Date End Date Ulises Ramos DO [address] [place] [address] PCP - General Family Practice 03/02/19 Income Tax Adjuster Relationship Specialty Start Date End Date Ulises Ramos DO [address] [place] [address] PCP - General Family Practice 03/02/19 Louie Silva, civil celebrantWarp Yarn Sorter [facility] 07/11/21 Income Tax Adjuster Relationship Specialty Start Date End Date Ulises Ramos DO [address] [place] [address] PCP - General Family Practice 03/02/19 Louie Silva, civil celebrantWarp Yarn Sorter [facility] 07/11/21 Income Tax Adjuster Relationship Specialty Start Date End Date Ulises Ramos, DO [address] [place] [address] PCP - General Family Practice 03/02/19 Louie Silva, civil celebrantWarp Yarn Sorter [facility] 07/11/21 Income Tax Adjuster Relationship Specialty Start Date End Date Ulises Ramos, DO [address] [place] [address] PCP - General Family Practice 03/02/19 Louie Silva, civil celebrantWarp Yarn Sorter [facility] 07/11/21 Income Tax Adjuster Relationship Specialty Start Date End Date Ulises Ramos, DO [address] [place] [address] PCP - General Family Practice 03/02/19 Louie Silva, civil celebrantWarp Yarn Sorter [facility] 07/11/21 Income Tax Adjuster Relationship Specialty Start Date End Date Ulises Ramos, DO [address] [place] [place] [address] PCP - General Family Practice 03/02/19 Louie Silva, civil celebrantWarp Yarn Sorter [facility] 07/11/21 Income Tax Adjuster Relationship Specialty Start Date End Date Ulises Ramos, DO [address] [place] [address] PCP - General Family Practice 03/02/19 Louie Silva, civil celebrantWarp Yarn Sorter [facility] 07/11/21 Income Tax Adjuster Relationship Specialty Start Date End Date Ulises Ramos, DO [address] [place] [address] PCP - General Family Practice 03/02/19 Louie Silva, civil celebrantWarp Yarn Sorter [facility] 07/11/21 Income Tax Adjuster Relationship Specialty Start Date End Date Ulises Ramos, DO [address] [place] [address] PCP - General Family Practice 03/02/19 Louie Silva, civil celebrantWarp Yarn Sorter [facility] 07/11/21 Income Tax Adjuster Relationship Specialty Start Date End Date Ulises Ramos, DO [address] [place] [address] PCP - General Family Practice 03/02/19 Louie Sivla, civil celebrantWarp Yarn Sorter [facility] 07/11/21 Income Tax Adjuster Relationship Specialty Start Date End Date Ulises Ramos, DO [address] [place] [address] PCP - General Family Practice 03/02/19 Louie Silva, civil celebrantWarp Yarn Sorter [facility] Practice 07/11/21 Income Tax Adjuster Relationship Specialty Start Date End Date Ulises Ramos, DO [address] [place] [address] PCP - General Family Practice 03/02/19 Louie Silva, civil celebrantWarp Yarn Sorter [facility] 07/11/21 Income Tax Adjuster Relationship Specialty Start Date End Date Ulises Ramos, DO [address] [place] [address] PCP - General Family Practice 03/02/19 Louie Silva, civil celebrantWarp Yarn Sorter [facility] 07/11/21 Income Tax Adjuster Relationship Specialty Start Date End Date Ulises Ramos, DO [address] [place] [address] PCP - General Family Practice 03/02/19 Louie Silva, civil celebrantWarp Yarn Sorter [facility] 07/11/21 Income Tax Adjuster Relationship Specialty Start Date End Date Ulises Ramos, DO [address] [place] [address] PCP - General Family Practice 03/02/19 Louie Silva, civil celebrantWarp Yarn Sorter [facility] 07/11/21 Income Tax Adjuster Relationship Specialty Start Date End Date Ulises Ramos, DO [address] [place] [address] PCP - General Family Practice 03/02/19 Louie Silva, civil celebrantWarp Yarn Sorter [facility] 07/11/21 Income Tax Adjuster Relationship Specialty Start Date End Date Ulises Ramos, DO [address] [place] [address] PCP - General Family Practice 03/02/19 Louie Silva, civil celebrantWarp Yarn Sorter [facility] 07/11/21 Income Tax Adjuster Relationship Specialty Start Date End Date Ulises Ramos, DO [address] [place] [address] PCP - General Family Practice 03/02/19 Louie Silva, civil celebrantWarp Yarn Sorter [facility] 07/11/21 Income Tax Adjuster Relationship Specialty Start Date End Date Ulises Ramos, DO [address] [place] [address] PCP - General Family Practice 03/02/19 Louie Silva, civil celebrantWarp Yarn Sorter [facility] 07/11/21 Income Tax Adjuster Relationship Specialty Start Date End Date Ulises Ramos, DO [address] [place] [address] PCP - General Family Practice 03/02/19 Louie Silva, civil celebrantWarp Yarn Sorter [facility] 07/11/21 Income Tax Adjuster Relationship Specialty Start Date End Date Ulises Ramos, DO [address] [place] [address] PCP - General Family Medicine 03/02/19 Louie Silva, civil celebrantWarp Yarn Sorter [facility] 07/11/21 Income Tax Adjuster Relationship Specialty Start Date End Date Ulises Ramos, DO [address] [place] [address] PCP - General Family Medicine 03/02/19 Louie Silva, civil celebrantWarp Yarn Sorter [facility] 07/11/21 Income Tax Adjuster Relationship Specialty Start Date End Date Ulises Ramos, DO [address] [place] [address] PCP - General Family Medicine 03/02/19 Louie Silva, civil celebrantWarp Yarn Sorter [facility] 07/11/21 Income Tax Adjuster Relationship Specialty Start Date End Date Ulises Ramos, DO [address] [place] [address] PCP - General Family Medicine 03/02/19 Louie Silva, civil celebrantWarp Yarn Sorter [facility] 07/11/21 Income Tax Adjuster Relationship Specialty Start Date End Date Ulises Ramos, DO [address] [place] [address] PCP - General Family Medicine 03/02/19 Louie Silva, civil celebrantWarp Yarn Sorter [facility] 07/11/21 Yuko Raymond, MEHUL Registered Nurse Primary Care 02/08/22 Income Tax Adjuster Relationship Specialty Start Date End Date Ulises Ramos, DO [address] [place] [address] PCP - General Family Medicine 03/02/19 Louie Silva, civil celebrantWarp Yarn Sorter [facility] 07/11/21 Yuko Raymond, RN Registered Nurse Primary Care 02/08/22 Income Tax Adjuster Relationship Specialty Start Date End Date Ulises Ramos, DO [address] [place] [address] PCP - General Family Medicine 03/02/19 Louie Sliva, civil celebrantWarp Yarn Sorter [facility] 07/11/21 Yuko Raymond, MEHUL Registered Nurse Primary Care 02/08/22 Income Tax Adjuster Relationship Specialty Start Date End Date Ulises Ramos, DO [address] [place] [address] PCP - General Family Medicine 03/02/19 Louie Silva, civil celebrantWarp Yarn Sorter [facility] 07/11/21 Yuko Raymond RN Registered Nurse Primary Care 02/08/22 Income Tax Adjuster Relationship Specialty Start Date End Date Ulises Ramos, DO [address] [place] [address] PCP - General Family Medicine 03/02/19 Wilton Palma, civil celebrantWarp Yarn Sorter [facility] 07/11/21 Yuko Raymond, MEHUL Registered Nurse Primary Care 02/08/22 Income Tax Adjuster Relationship Specialty Start Date End Date Ulises Ramos, DO [address] [place] [address] PCP - General Family Medicine 03/02/19 Wilton Palma civil celebrantWarp Yarn Sorter [facility] 07/11/21 Yuko Raymond RN Registered Nurse Primary Care 02/08/22 Income Tax Adjuster Relationship Specialty Start Date End Date Ulises Ramos, DO [address] [place] [address] PCP - General Family Medicine 03/02/19 Wilton Palma civil celebrantWarp Yarn Sorter [facility] 07/11/21 Raymond, Yuko, RN Registered Nurse Primary Care 02/08/22 Income Tax Adjuster Relationship Specialty Start Date End Date Ulises Ramos, DO [address] [place] [address] PCP - General Family Medicine 03/02/19 Wilton Palma, civil celebrantWarp Yarn Sorter [facility] 07/11/21 Yuko Raymond, MEHUL Registered Nurse Primary Care 02/08/22 Income Tax Adjuster Relationship Specialty Start Date End Date Ulises Ramos, DO [address] [place] [address] PCP - General Family Medicine 03/02/19 Wilton Palma, civil celebrantWarp Yarn Sorter [facility] 07/11/21 Yuko Raymond RN Registered Nurse Primary Care 02/08/22 Income Tax Adjuster Relationship Specialty Start Date End Date Ulises Ramos, DO [address] [place] [address] PCP - General Family Medicine 03/02/19 Wilton Palma civil celebrantWarp Yarn Sorter Family [facility] 07/11/21 Yuko Raymond, MEHUL Registered Nurse Primary Care 02/08/22 Income Tax Adjuster Relationship Specialty Start Date End Date Ulises Ramos, DO [address] [place] [address] PCP - General Family Medicine 03/02/19 Wilton Palma, civil celebrantWarp Yarn Sorter Family [facility] 07/11/21 Yuko Raymond, RN Registered Nurse Primary Care 02/08/22 Income Tax Adjuster Relationship Specialty Start Date End Date Ulises Ramos, DO [address] [place] [address] PCP - General Family Medicine 03/02/19 Wilton Palma civil celebrantWarp Yarn Sorter [facility] 07/11/21 Yuko Raymond RN Registered Nurse Primary Care 02/08/22 Income Tax Adjuster Relationship Specialty Start Date End Date Ulises Ramos, DO [address] [place] [address] PCP - General Family Medicine 03/02/19 Wilton Palma, civil celebrantWarp Yarn Sorter Family [facility] 07/11/21 Yuko Raymond, MEHUL Registered Nurse Primary Care 02/08/22 Income Tax Adjuster Relationship Specialty Start Date End Date Ulises Ramos, DO [address] [place] [address] PCP - General Family Medicine 03/02/19 Wilton Palma, civil celebrantWarp Yarn Sorter [facility] 07/11/21 Yuko Raymond, RN Registered Nurse Primary Care 02/08/22 Income Tax Adjuster Relationship Specialty Start Date End Date Ulises Ramos, DO [address] [place] [address] PCP - General Family Medicine 03/02/19 Wilton Palma, civil celebrantWarp Yarn Sorter [facility] 07/11/21 Yuko Raymond, MEHUL Registered Nurse Primary Care 02/08/22 Income Tax Adjuster Relationship Specialty Start Date End Date Ulises Ramos, DO [address] [place] [address] PCP - General Family Medicine 03/02/19 Wilton Palma, civil celebrantWarp Yarn Sorter [facility] 07/11/21 Yuko Raymond, RN Registered Nurse Primary Care 02/08/22 Income Tax Adjuster Relationship Specialty Start Date End Date Ulises Ramos, DO [address] [place] [address] PCP - General Family Medicine 03/02/19 Wilton Palma civil celebrantWarp Yarn Sorter [facility] 07/11/21 Yuko Raymond, RN Registered Nurse Primary Care 02/08/22 Income Tax Adjuster Relationship Specialty Start Date End Date Ulises Ramos, DO [address] [place] [address] PCP - General Family Medicine 03/02/19 Wilton Palma, civil celebrantWarp Yarn Sorter Family [facility] 07/11/21 Yuko Raymond, RN Registered Nurse Primary Care 02/08/22 Income Tax Adjuster Relationship Specialty Start Date End Date Ulises Ramos, DO [address] [place] [address] PCP - General Family Medicine 03/02/19 Wilton Palma, civil celebrantWarp Yarn Sorter Family [facility] 07/11/21 Yuko Raymond, RN Registered Nurse Primary Care 02/08/22 Income Tax Adjuster Relationship Specialty Start Date End Date Ulises Ramos, DO [address] [place] [address] PCP - General Family Medicine 03/02/19 Wilton Palma, civil celebrantWarp Yarn Sorter [facility] 07/11/21 Yuko Raymond, RN Registered Nurse Primary Care 02/08/22 Income Tax Adjuster Relationship Specialty Start Date End Date Ulises Ramos, DO [address] [place] [address] PCP - General Family Medicine 03/02/19 Wilton Palma, civil celebrantWarp Yarn Sorter [facility] 07/11/21 Yuko Raymond, RN Registered Nurse Primary Care 02/08/22 Income Tax Adjuster Relationship Specialty Start Date End Date Ulises Ramos, DO [address] [place] [address] PCP - General Family Medicine 03/02/19 Wilton Palma, civil celebrantWarp Yarn Sorter [facility] 07/11/21 Yuko Raymond, RN Registered Nurse Primary Care 02/08/22 Income Tax Adjuster Relationship Specialty Start Date End Date Ulises Ramos, DO [address] [place] [address] PCP - General Family Medicine 03/02/19 Wilton Palma, civil celebrantWarp Yarn Sorter [facility] 07/11/21 Yuko Raymond, RN Registered Nurse Primary Care 02/08/22 Income Tax Adjuster Relationship Specialty Start Date End Date Ulises Ramos, DO [address] [place] [address] PCP - General Family Medicine 03/02/19 Wilton Palma, civil celebrantWarp Yarn Sorter Family [facility] 07/11/21 Yuko Raymond, RN Registered Nurse Primary Care 02/08/22 Income Tax Adjuster Relationship Specialty Start Date End Date Ulises Ramos, DO [address] [place] [address] PCP - General Family Medicine 03/02/19 Wilton Palma, civil celebrantWarp Yarn Sorter [facility] 07/11/21 Yuko Raymond, RN Registered Nurse Primary Care 02/08/22 Income Tax Adjuster Relationship Specialty Start Date End Date Ulises Ramos, DO [address] [place] [address] PCP - General Family Medicine 03/02/19 Wilton Palma, civil celebrantWarp Yarn Sorter [facility] 07/11/21 Yuko Raymond, RN Registered Nurse Primary Care 02/08/22 Income Tax Adjuster Relationship Specialty Start Date End Date Ulises Ramos, DO [address] [place] [address] PCP - General Family Medicine 03/02/19 Wilton Palma, civil celebrantWarp Yarn Sorter [facility] 07/11/21 Yuko Raymond, RN Registered Nurse Primary Care 02/08/22 Income Tax Adjuster Relationship Specialty Start Date End Date Ulises Ramos, DO [address] [place] [address] PCP - General Family Medicine 03/02/19 Wilton Palma, civil celebrantWarp Yarn Sorter [facility] 07/11/21 Yuko Raymond, RN Registered Nurse Primary Care 02/08/22 Income Tax Adjuster Relationship Specialty Start Date End Date Ulises Ramos, DO [address] [place] [address] PCP - General Family Medicine 03/02/19 Wilton Palma, civil celebrantWarp Yarn Sorter Family [facility] 07/11/21 Yuko Raymond, RN Registered Nurse Primary Care 02/08/22 Income Tax Adjuster Relationship Specialty Start Date End Date Ulises Ramos, DO [address] [place] [address] PCP - General Family Medicine 03/02/19 Wilton Palma, civil celebrantWarp Yarn Sorter [facility] 07/11/21 Yuko Raymond, RN Registered Nurse Primary Care 02/08/22 Income Tax Adjuster Relationship Specialty Start Date End Date Ulises Ramos, DO [address] [place] [address] PCP - General Family Medicine 03/02/19 Wilton Palma, civil celebrantWarp Yarn Sorter [facility] 07/11/21 Yuko Raymond, RN Registered Nurse Primary Care 02/08/22 Income Tax Adjuster Relationship Specialty Start Date End Date Ulises Ramos, DO [address] [place] [address] PCP - General Family Medicine 03/02/19 Wilton Palma, civil celebrantWarp Yarn Sorter [facility] 07/11/21 Yuko Raymond, RN Registered Nurse Primary Care 02/08/22 Income Tax Adjuster Relationship Specialty Start Date End Date Ulises Ramos, DO [address] [place] [address] PCP - General Family Medicine 03/02/19 Wilton Palma, civil celebrantWarp Yarn Sorter [facility] 07/11/21 Yuko Raymond, RN Registered Nurse Primary Care 02/08/22 Income Tax Adjuster Relationship Specialty Start Date End Date Ulises Ramos, DO [address] [place] [address] PCP - General Family Medicine 03/02/19 Wilton Palma, civil celebrantWarp Yarn Sorter [facility] 07/11/21 Yuko Raymond, RN Registered Nurse Primary Care 02/08/22 Income Tax Adjuster Relationship Specialty Start Date End Date Ulises Ramos, DO [address] [place] [address] PCP - General Family Medicine 03/02/19 Wilton Palma, civil celebrantWarp Yarn Sorter [facility] 07/11/21 Yuko Raymond, MEHUL Registered Nurse Primary Care 02/08/22 Income Tax Adjuster Relationship Specialty Start Date End Date Ulises Ramos, DO [address] [place] [address] PCP - General Family Medicine 03/02/19 Wilton Palma, civil celebrantWarp Yarn Sorter [facility] 07/11/21 Yuko Raymond, RN Registered Nurse Primary Care 02/08/22 Income Tax Adjuster Relationship Specialty Start Date End Date Ulises Ramos, DO [address] [place] [address] PCP - General Family Medicine 03/02/19 Wilton Palma, civil celebrantWarp Yarn Sorter [facility] 07/11/21 Yuko Raymond, RN Registered Nurse Primary Care 02/08/22 Income Tax Adjuster Relationship Specialty Start Date End Date Ulises Ramos, DO [address] [place] [address] PCP - General Family Medicine 03/02/19 Wilton Palma, civil celebrantWarp Yarn Sorter Family [facility] 07/11/21 Yuko Raymond, RN Registered Nurse Primary Care 02/08/22 Income Tax Adjuster Relationship Specialty Start Date End Date Ulises Ramos, DO [address] [place] [address] PCP - General Family Medicine 03/02/19 Wilton Palma, civil celebrantWarp Yarn Sorter [facility] 07/11/21 Yuko Raymond, MEHUL Registered Nurse Primary Care 02/08/22 Income Tax Adjuster Relationship Specialty Start Date End Date Ulises Ramos, [address] [place] [address] PCP - General Family Medicine 03/02/19 Wilton Palma, civil celebrantWarp Yarn Sorter [facility] Medicine 07/11/21 Yuko Raymond, RN Registered Nurse Primary Care 02/08/22 Income Tax Adjuster Relationship Specialty Start Date End Date Ulises Ramos, DO [address] [place] [address] PCP - General Family Medicine 03/02/19 Wilton Palma, civil celebrantWarp Yarn Sorter [facility] 07/11/21 Yuko Raymond, MEHUL Registered Nurse Primary Care 02/08/22 Income Tax Adjuster Relationship Specialty Start Date End Date Ulises Ramos, [address] [place] [address] PCP - General Family Medicine 03/02/19 Wilton Palma, civil celebrantWarp Yarn Sorter Family [facility] 07/11/21 Yuko Raymond, RN Registered Nurse Primary Care 02/08/22 Income Tax Adjuster Relationship Specialty Start Date End Date Ulises Ramos, [address] [place] [address] PCP - General Family Medicine 03/02/19 Wilton Palma, civil celebrantWarp Yarn Sorter [facility] 07/11/21 Yuko Raymond, RN Registered Nurse Primary Care 02/08/22 Income Tax Adjuster Relationship Specialty Start Date End Date Ulises Ramos, [address] [address] PCP - General Family Medicine 03/02/19 Wilton Palma, civil celebrantWarp Yarn Sorter [facility] 07/11/21 Yuko Raymond, RN Registered Nurse Primary Care 02/08/22 Income Tax Adjuster Relationship Specialty Start Date End Date Ulises Ramos, [address] [address] PCP - General Family Medicine 03/02/19 Wilton Palma, civil celebrantWarp Yarn Sorter [facility] 07/11/21 Yuko Raymond, RN Registered Nurse Primary Care 02/08/22 Halle Dale MD [address] [address] Hematology/Oncology 11/29/22 Income Tax Adjuster Relationship Specialty Start Date End Date Ulises Ramos, [address] [place] [address] PCP - General Family Medicine 03/02/19 Wilton Palma, civil celebrantWarp Yarn Sorter [facility] 07/11/21 Yuko Raymond, RN Registered Nurse Primary Care 02/08/22 Halle Dale MD [address] [place] [address] Hematology/Oncology 11/29/22 Income Tax Adjuster Relationship Specialty Start Date End Date Ulises Ramos DO [address] [place] [address] PCP - General Family Medicine 03/02/19 Wilton Palma, civil celebrantWarp Yarn Sorter [facility] 07/11/21 Yuko Raymond, MEHUL Registered Nurse Primary Care 02/08/22 Halle Dale MD [address] [place] [address] Hematology/Oncology 11/29/22 Maddie White, civil celebrant Health Unit Coordinator 12/11/22 01/10/23 Income Tax Adjuster Relationship Specialty Start Date End Date Ulises Ramos DO [address] [place] [address] PCP - General Family Medicine 03/02/19 Wilton Palma RN War[employer] [facility] 07/11/21 Yuko Raymond, RN Registered Nurse Primary Care 02/08/22 Halle Dale MD [address] [place] [address] Hematology/Oncology 11/29/22 Maddie White, civil celebrant Health Unit Coordinator 12/11/22 01/10/23 Income Tax Adjuster Relationship Specialty Start Date End Date Ulises Ramos DO [address] [place] [address] PCP - General Family Medicine 03/02/19 Wilton Palma RN [employer] [facility] 07/11/21 Yuko Raymond, RN Registered Nurse Primary Care 02/08/22 Halle Dale MD [address] [place] [address] Hematology/Oncology 11/29/22 Maddie White, civil celebrant Health Unit Coordinator 12/11/22 01/10/23 Income Tax Adjuster Relationship Specialty Start Date End Date Ulises Ramos DO [address] [place] [address] PCP - General Family Medicine 03/02/19 Wilton Palma RN [employer] [facility] 07/11/21 Yuko Raymond, RN Registered Nurse Primary Care 02/08/22 Halle Dale MD [address] [place] [address] Hematology/Oncology 11/29/22 Maddie White, civil celebrant Health Unit Coordinator 12/11/22 01/10/23 Income Tax Adjuster Relationship Specialty Start Date End Date Ulises Ramos DO [address] [place] [address] PCP - General Family Medicine 03/02/19 Wilton Palma RN War[employer] Sorter [facility] 07/11/21 Yuko Raymond, RN Registered Nurse Primary Care 02/08/22 Halle Dale MD [address] [place] [address] Hematology/Oncology 11/29/22 Maddie White, civil celebrant Health Unit Coordinator 12/11/22 01/10/23 Income Tax Adjuster Relationship Specialty Start Date End Date Ulises Ramos DO [address] [place] [address] PCP - General Family Medicine 03/02/19 Wilton Palma, civil celebrantWarp Yarn Sorter Family [facility] 07/11/21 Yuko Raymond, RN Registered Nurse Primary Care 02/08/22 Halle Dale MD [address] [place] [address] Hematology/Oncology 11/29/22 Maddie White, civil celebrant Health Unit Coordinator 12/11/22 01/10/23 Income Tax Adjuster Relationship Specialty Start Date End Date Ulises Ramos DO [address] [place] [address] PCP - General Family Medicine 03/02/19 Wilton Palma RN [employer] Family Medicine 07/11/21 Yuko Raymond, RN Registered Nurse Primary Care 02/08/22 Halle Dale MD [address] [place] [address] Hematology/Oncology 11/29/22 Maddie White, civil celebrant Health Unit Coordinator 12/11/22 01/10/23 Halle Dale MD [address] [place] [address] Referring Hematology/Oncology 12/26/22 Halle Dale MD [address] [place] [address] Home Care Provider Hematology/Oncology 12/26/22 Income Tax Adjuster Relationship Specialty Start Date End Date Ulises Ramos DO [address] [place] [address] PCP - General Family Medicine 03/02/19 Wilton Palma, civil celebrantWarp Yarn Sorter Family Medicine 07/11/21 Yuko Raymond, RN Registered Nurse Primary Care 02/08/22 Halle Dale MD [address] [place] [address] Hematology/Oncology 11/29/22 Halle Dale MD [address] [place] [address] Referring Hematology/Oncology 12/26/22 Halle Dale MD [address] [place] [address] Home Care Provider Hematology/Oncology 12/26/22 Income Tax Adjuster Relationship Specialty Start Date End Date Ulises Ramos DO [address] [place] [address] PCP - General Family Medicine 03/02/19 Wilton Palma, civil celebrantWarp Yarn Sorter Family Medicine 07/11/21 Yuko Raymond, RN Registered Nurse Primary Care 02/08/22 Halle Dale MD [address] [place] [address] Hematology/Oncology 11/29/22 Halle Dale MD [address] [place] [address] Referring Hematology/Oncology 12/26/22 Halle Dale MD [address] [place] [address] Home Care Provider Hematology/Oncology 12/26/22 Income Tax Adjuster Relationship Specialty Start Date End Date Ulises Ramos DO [address] [place] [address] PCP - General Family Medicine 03/02/19 Wilton Palma, civil celebrantWarp Yarn Sorter Family Medicine 07/11/21 Yuko Raymond, RN Registered Nurse Primary Care 02/08/22 Halle Dale MD [address] [place] [address] Hematology/Oncology 11/29/22 Halle Dale MD [address] [place] [address] Referring Hematology/Oncology 12/26/22 Halle Dale MD [address] [place] [address] Home Care Provider Hematology/Oncology 12/26/22 Income Tax Adjuster Relationship Specialty Start Date End Date Ulises Ramos DO [address] [place] [address] PCP - General Family Medicine 03/02/19 Wilotn Palma, civil celebrantWarp Yarn Sorter Family Medicine 07/11/21 Yuko Raymond, RN Registered Nurse Primary Care 02/08/22 Halle Dale MD [address] [place] [address] Hematology/Oncology 11/29/22 Halle Dale MD [address] [place] [address] Referring Hematology/Oncology 12/26/22 Halle Dale MD [address] [place] [address] Home Care Provider Hematology/Oncology 12/26/22 Income Tax Adjuster Relationship Specialty Start Date End Date Ulises Ramos DO [address] [place] [address] PCP - General Family Medicine 03/02/19 Wilton Palma, civil celebrantWarp Yarn Sorter Family Medicine 07/11/21 Yuko Raymond, RN Registered Nurse Primary Care 02/08/22 Halle Dale MD [address] [place] [address] Hematology/Oncology 11/29/22 Halle Dale MD [address] [place] [address] Referring Hematology/Oncology 12/26/22 Halle Dale MD [address] [place] [address] Home Care Provider Hematology/Oncology 12/26/22 Income Tax Adjuster Relationship Specialty Start Date End Date Ulises Ramos DO [address] [place] [address] PCP - General Family Medicine 03/02/19 Wilton Palma, civil celebrantWarp Yarn Sorter Family Medicine 07/11/21 Yuko Raymond, RN Registered Nurse Primary Care 02/08/22 Halle Dale MD [address] [place] [address] Hematology/Oncology 11/29/22 Halle Dale MD [address] [place] [address] Referring Hematology/Oncology 12/26/22 Halle Dale MD [address] [place] [address] Home Care Provider Hematology/Oncology 12/26/22 Income Tax Adjuster Relationship Specialty Start Date End Date Ulises Ramos DO [address] [place] [address] PCP - General Family Medicine 03/02/19 Wilton Palma, civil celebrantWarp Yarn Sorter Family Medicine 07/11/21 Yuko Raymond, RN Registered Nurse Primary Care 02/08/22 Halle Dale MD [address] [facility] [address] [place] [address] Hematology/Oncology 11/29/22 Halle Dale MD [address] [facility] [address] [place] [address] Referring Hematology/Oncology 12/26/22 Halle Dale MD [address] [facility] [address] [place] [address] Home Care Provider Hematology/Oncology 12/26/22 Income Tax Adjuster Relationship Specialty Start Date End Date Aleja Uribe MD [address] [facility] [address] [place] [address] PCP - General 08/07/09 Income Tax Adjuster Relationship Specialty Start Date End Date Ulises Ramos DO [address] [place] [address] PCP - General Family Medicine 03/02/19 Wilton Palma, civil celebrantWarp Yarn Sorter Family Medicine 07/11/21 Yuko Raymond, RN Registered Nurse Primary Care 02/08/22 Halle Dale MD [address] [facility] [address] [place] [address] Hematology/Oncology 11/29/22 Halle Dale MD [address] [place] [address] Referring Hematology/Oncology 12/26/22 Halle Dale MD [address] [place] [address] Home Care Provider Hematology/Oncology 12/26/22 Income Tax Adjuster Relationship Specialty Start Date End Date Ulises Ramos DO [address] [place] [address] PCP - General Family Medicine 03/02/19 Wilton Palma RN [employer] Family Medicine 07/11/21 Yuko Raymond, MEHUL Registered Nurse Primary Care 02/08/22 Halle Dale MD [address] [place] [address] Hematology/Oncology 11/29/22 Halle Dale MD [address] [place] [address] Referring Hematology/Oncology 12/26/22 Halle Dale MD [address] [place] [address] Home Care Provider Hematology/Oncology 12/26/22 Income Tax Adjuster Relationship Specialty Start Date End Date Ulises Ramos DO [address] [place] [phone] PCP - General Family Medicine 03/02/19 Wilton Palma civil celebrantWarp Yarn Sorter Family Medicine 07/11/21 Yuko Raymond, RN Registered Nurse Primary Care 02/08/22 Halle Dale MD [address] [place] [address] Hematology/Oncology 11/29/22 Halle Dale MD [address] [place] [address] Referring Hematology/Oncology 12/26/22 Halle Dale MD [address] [place] [address] Home Care Provider Hematology/Oncology 12/26/22 Income Tax Adjuster Relationship Specialty Start Date End Date Ulises Ramos DO [address] [place] [phone] PCP - General Family Medicine 03/02/19 Wilton Palma, civil celebrantWarp Yarn Sorter Family Medicine 07/11/21 Yuko Raymond, MEHUL Registered Nurse Primary Care 02/08/22 Halle Dale MD [address] [place] [address] Hematology/Oncology 11/29/22 Halle Dale MD [address] [place] [address] Referring Hematology/Oncology 12/26/22 Halle Dale MD [address] [place] [address] Home Care Provider Hematology/Oncology 12/26/22 Income Tax Adjuster Relationship Specialty Start Date End Date Ulises Ramos DO [address] [place] [phone] PCP - General Family Medicine 03/02/19 Wilton Palma RN [employer] Family Medicine 07/11/21 Yuko Raymond, RN Registered Nurse Primary Care 02/08/22 Halle Dale MD [address] [place] [address] Hematology/Oncology 11/29/22 Halle Dale MD [address] [place] [address] Referring Hematology/Oncology 12/26/22 Halle Dale MD [address] [place] [address] Home Care Provider Hematology/Oncology 12/26/22 Income Tax Adjuster Relationship Specialty Start Date End Date Ulises Ramos DO [address] [place] [phone] PCP - General Family Medicine 03/02/19 Wilton Palma RN [employer] Family Medicine 07/11/21 Yuko Raymond, RN Registered Nurse Primary Care 02/08/22 Halle Dale MD [address] [place] [address] Hematology/Oncology 11/29/22 Halle Dale MD [address] [place] [address] Referring Hematology/Oncology 12/26/22 Halle Dale MD [address] [place] [address] Home Care Provider Hematology/Oncology 12/26/22 Income Tax Adjuster Relationship Specialty Start Date End Date Ulises Ramos DO [address] [place] [address] PCP - General Family Medicine 03/02/19 Wilton Palma RN [employer] Family Medicine 07/11/21 Yuko Raymond, RN Registered Nurse Primary Care 02/08/22 Halle Dale MD [address] [place] [address] Hematology/Oncology 11/29/22 Halle Dale MD [address] [place] [address] Referring Hematology/Oncology 12/26/22 Halle Dale MD [address] [place] [address] Home Care Provider Hematology/Oncology 12/26/22 Income Tax Adjuster Relationship Specialty Start Date End Date Sandi Dutton MD [address] [place] [phone] PCP - General 08/19/17 Income Tax Adjuster Relationship Specialty Start Date End Date Ulises Ramos DO [address] [place] [address] PCP - General Family Medicine 03/02/19 12/04/23 Leighton Orozco Chi [address] [id number] PCP - General Gerontology 12/05/23 Wilton Palma RN [employer] Family Medicine 07/11/21 12/04/23 Yuko Raymond, RN Registered Nurse Primary Care 02/08/22 Halle Dale MD [address] [place] [address] Hematology/Oncology 11/29/22 Halle Dale MD [address] [place] [address] Referring Hematology/Oncology 12/26/22 Halle Dale MD [address] [place] [address] Home Care Provider Hematology/Oncology 12/26/22 Income Tax Adjuster Relationship Specialty Start Date End Date Leighton Orozco Chi [address] [place] [address] PCP - General Gerontology 12/05/23 Yuko Raymond, RN Registered Nurse Primary Care 02/08/22 Halle Dale MD [address] [place] [address] Hematology/Oncology 11/29/22 Halle Dale MD [address] [place] [address] Referring Hematology/Oncology 12/26/22 Halle Dale MD [address] [place] [address] Home Care Provider Hematology/Oncology 12/26/22 Income Tax Adjuster Relationship Specialty Start Date End Date Leighton Orozco Chi [address] [place] [address] PCP - General Gerontology 12/05/23 Yuko Raymond, RN Registered Nurse Primary Care 02/08/22 Halle Dale MD [address] [place] [address] Hematology/Oncology 11/29/22 Halle Dale MD [address] [place] [address] Referring Hematology/Oncology 12/26/22 Halle Dale MD [address] [place] [address] Home Care Provider Hematology/Oncology 12/26/22 Income Tax Adjuster Relationship Specialty Start Date End Date Peewee Orozco MD [address] [place], [place] [id number] PCP - General Internal Medicine 11/21/24 Lavinia Pascual MB [facility] [address] [place], [place] [id number] Referring Provider Medical Oncology 11/22/24 Jocelyne Sheridan, MEHUL Registered Nurse 11/22/24 Scheduled Active and Recently Administ ered Medications (unrecognized section and content) Medication Order 11/20/2024 11/21/2024 11/22/2024 amLODIPine (NORVASC) tablet 2.5 mg 2.5 mg, Oral, DAILY, First dose on 11/20/24 at 0900, Until Discontinued 1018 (Given - Provider: Quan Del Rosario RN) 0831 (Given - Provider: Quan Del Rosario RN) 0920 (Given - Provider: Lucero Carlson, RN) aspirin chewable tablet 81 mg 81 mg, Oral, DAILY, First dose on 11/20/24 at 0900, Until Discontinued 1018 (Given - Provider: Quan Del Rosario RN) 0831 (Given - Provider: Quan Del Rosario RN) 0920 (Given - Provider: Lucero Carlson, RN) Azithromycin (ZITHROMAX) tablet 250 mg 250 mg, Oral, EVERY M, W & F, First dose on 11/22/24 at 0900, Until Discontinued 1417 (Not Given - Provider: Lucero Carlson RN - Reason: Patient/family refused) budesonide (PULMICORT) nebulizer suspension 0.5 mg 0.5 mg, Inhalation, 2 TIMES DAILY, First dose on 11/20/24 at 0900, Until Discontinued 0943 (Given - Provider: Alyse Aguillon, Limited Permit Bravo)1738 (Given - Provider: Alyse Aguillon, Limited Permit Bravo) 0954 (Given - Provider: Surjit Martinez, Limited Permit Bravo)214 (Given - Provider: Prince Joni RCP) 0953 (Given - Provider: Pantera Concepcion RCP) Escitalopram (LEXAPRO) tablet 15 mg 15 mg, Oral, DAILY, First dose on 11/20/24 at 0900, Until Discontinued 1018 (Given - Provider: Quan Del Rosario RN) 830 (Given - Provider: Quan Del Rosario RN) 918 (Given - Provider: Lucero Carlson RN) hydroxyurea (HYDREA) capsule; dose = 1,500 mg 1,500 mg, Oral, CUSTOM FREQUENCY (Once per day on Friday), First dose on 11/20/24 at 0900, Until Discontinued, Do not split, break, crush or open capsules or this medication. Contact pharmacy if altered dose or route needed. 1018 (Not Given - Provider: Quan Del Rosario RN - Reason: Other - Comment: patient takes this med at night) 920 (Given - Provider: Lucero Carlson RN) Pantoprazole (PROTONIX) tablet DR 40 mg 40 mg, Oral, DAILY, First dose on 11/20/24 at 0900, Until Discontinued, Swallow whole; do not crush or chew., Indications: Continuation of Home Therapy 1018 (Given - Provider: Quan Del Rosario RN) 830 (Given - Provider: Quan Del Rosario RN) 920 (Given - Provider: Lucero Carlson RN) Rivaroxaban (XARELTO) tablet 10 mg 10 mg, Oral, DAILY, First dose on 11/20/24 at 0900, Until Discontinued, Due to the rapid onset of action of rivaroxaban, no overlap is needed with other anticoagulants (e.g. enoxaparin, heparin). Administer doses of 15mg or greater with food. For patients who cannot swallow whole tablets, the tablets may be crushed and mixed with applesauce immediately prior to use. If administered via feeding tube, crush tablets and mix with 50 mL water. Tube must empty into the stomach for this route., Indications: Atrial Fibrillation 0746 (Held by provider - Provider: Castro Schaffer MD - Reason: Other)0746 (Unheld by provider - Provider: Castro Scahffer MD)1018 (Given - Provider: Quan Del Rosario RN) 0832 (Not Given - Provider: Quan Del Rosario RN - Reason: Patient/family refused) 0919 (Given - Provider: Lucero Carlson RN) Tobramycin (KATY) inhalation solution 300 mg (CANCELED) 300 mg, Nebulization, EVERY 12 HOURS, First dose on 11/21/24 at 1000, Until Discontinued 1123 (Given - Provider: Surjit Martinez, Limited Permit Bravo) Tobramycin (KATY) inhalation solution 300 mg 300 mg, Nebulization, DAILY, First dose (after last modification) on 11/22/24 at 0900, Until Discontinued 1005 (Given - Provider: Pantera Concepcion RCP) Zolpidem (AMBIEN) tablet 10 mg 10 mg, Oral, DAILY AT BEDTIME, First dose on 11/20/24 at 0045, Until Discontinued 0111 (Not Given - Provider: Ana Tapia RN - Reason: Other - Comment: received from previous hospital prior transfer)2123 (Given - Provider: Kaiden Gonzales RN) 2131 (Given - Provider: Kaiden Gonzales RN) PRN Medication Order 11/20/2024 11/21/2024 11/22/2024 Acetaminophen (TYLENOL) tablet 650 mg 650 mg, Oral, EVERY 6 HOURS NEEDED, Starting on 11/20/24 at 0026, Until 11/22/24 at 1733, Mild Pain, Oral temp > 100.4 F, Headaches, Alternate with ibuprofen if ordered, Maximum dose of acetaminophen is 4000 mg from all sources in 24 hours or 2000 mg from all sources in patients with cirrhosis in 24 hours. 1104 (Given - Provider: Quan Del Rosario RN)2130 (Given - Provider: Kaiden Gonzales RN) 1418 (Given - Provider: Lucero Carlson RN) guaiFENesin (ROBITUSSIN) oral solution 400 mg 400 mg, Oral, EVERY 6 HOURS NEEDED, Starting on 11/20/24 at 0026, Until Fri11/22/24 at 1733, Cough, Congestion Ipratropium-albuterol (DUONEB) 0.5-2.5 (3) MG/3ML nebulizer solution 3 mL 3 mL, Nebulization, EVERY 6 HOURS NEEDED, Starting on 11/20/24 at 0035, Until Fri11/22/24 at 1733, Shortness of Breath, Cough, Breathing Treatment Melatonin tablet 6 mg 6 mg, Oral, DAILY AT BEDTIME NEEDED, Starting on 11/20/24 at 0026, Until Fri11/22/24 at 1733, Insomnia Ondansetron (ZOFRAN-ODT) disintegrating tablet 4 mg(Linked Group 1) 4 mg, Oral, EVERY 6 HOURS NEEDED, Starting on 11/20/24 at 0026, Until Fri11/22/24 at 1733, Nausea / Vomiting Ondansetron 4mg/2ml (ZOFRAN) injection 4 mg(Linked Group 1) 4 mg, Intravenous, EVERY 6 HOURS NEEDED, Starting on 11/20/24 at 0026, Until Fri11/22/24 at 1733, Nausea / Vomiting oxyCODONE (ROXICODONE) tablet 5 mg 5 mg, Oral, EVERY 6 HOURS NEEDED, Starting on 11/20/24 at 1117, Until Fri11/22/24 at 1733, Severe Pain 1403 (Given - Provider: Quan Del Rosario RN)1948 (Given - Provider: Kaiden Gonzales RN) 0357 (Given - Provider: Kaiden Gonzales RN)1137 (Given - Provider: Quan Del Rosario RN)1813 (Given - Provider: Quan Del Rosario RN) 0002 (Given - Provider: Kaiden Gonzales RN)0608 (Given - Provider: Kaiden Gonzales, MEHUL) Polyethylene glycol (MIRALAX) packet 17 g 17 g, Oral, DAILY NEEDED, Starting on 11/20/24 at 0026, Until Fri11/22/24 at 1733, Constipation 1st Line Senna (SENOKOT) tablet 8.6 mg 8.6 mg, Oral, EVERY 12 HOURS NEEDED, Starting on 11/20/24 at 0026, Until 11/22/24 at 1733, Constipation 2nd Line Sodium chloride 0.9% IV solution 250 mL Intravenous, at 20 mL/hr, NEEDED, Starting on 11/20/24 at 0026, Until 11/22/24 at 1733, Carrier Fluid - See Admin. Inst, 250mL 0.9NS to be used as carrier fluid for intermittent small volume or piggyback medication administration as needed. Infusion rate of the carrier fluid should be set at 20 mL/hr unless the rate as the intermittent medication is less than 20 mL/hr. For intermittent medications with a rate less than 20 mL/hr set the carrier fluid at that rate of the intermittent or piggy back medication. Linked Groups Order Group 1: Ondansetron 4mg/2ml (ZOFRAN) injection 4 mgJump to med 4 mg, Intravenous, EVERY 6 HOURS NEEDED, Starting on 11/20/24 at 0026, Until 11/22/24 at 1733, Nausea / Vomiting Or Ondansetron (ZOFRAN-ODT) disintegrating tablet 4 mgJump to med 4 mg, Oral, EVERY 6 HOURS NEEDED, Starting on 11/20/24 at 0026, Until 11/22/24 at 1733, Nausea / Vomiting FOR RECORDS PERTAINING TO PATIENTS WHO ARE [...] BE BASED ON THE PRIMARY CLINICAL RECORDS. [facility]. provides no warranty or guarantee of the accuracy or completeness of information in this document.
== END | disposition home or self-care (01) ==
LOC: MRI 08:51
PROVIDERS: PCP Family Medicine Geriatric Medicine; Referring Provider Anesthesiology Pain Medicine; Visit Provider Anesthesiology Pain Medicine
DX: M54.16 Radiculopathy, lumbar region (principal)
CPT/HCPCS: 72148

== ENCOUNTER → 2024-12-29 | Outpatient (CLI) | payer MEDICARE, OTHER, SELFPAY ==
--- NOTE | 2024-12-29 12:48 | NEURO ---
NCS and/or EMG Patient Report Ordering Doctor: Leighton Orozco Chi DATE OF SERVICE: 12/29/24 Siva narvaez with complaints of weakness, numbness and tingling in the right lower leg. Electrodiagnostic findings: Right peroneal motor nerve demonstrates normal distal latency, amplitude and conduction velocity mid measured at the tibialis anterior. Right tibial motor nerve demonstrates reduced conduction velocity. Absent right superficial peroneal response. Right sural latency is prolonged. Prolonged right tibial and right peroneal F?wave. Prolonged H?reflux bilaterally. Needle EMG testing was performed the right lower limb. All muscles tested showed no evidence of denervation with normal motor unit potentials. Electrodiagnostic impression: This is an abnormal study in the right lower limb. 1. Electrodiagnostic findings are suggestive of sensory neuropathy, involving the right sural and right superficial peroneal nerve. There is also evidence of right tibial neuropathy, with evidence of demyelination. Would recommend correlation with the left lower limb to better evaluate for peripheral polyneuropathy. 2. No electrodiagnostic evidence is noted for lumbosacral radiculopathy Multi Select Codes Neurology Neurology Interp Codes: 96287-36 Musc test done w/n test comp (interp) and 59601-10 Nrv cndj test 7-8 studies (interp)
== END | disposition home or self-care (01) ==
PROVIDERS: PCP Family Medicine Geriatric Medicine; Referring Provider Family Medicine Geriatric Medicine; Visit Provider Family Medicine Geriatric Medicine
DX: M54.31 Sciatica, right side (principal)
CPT/HCPCS: 95886; 95910

== ENCOUNTER → 2025-01-21 | Outpatient (CLI) | payer MEDICARE, OTHER, SELFPAY ==
[2025-01-21 13:37] LABS: Hematocrit 33.0 % (40-54); Hemoglobin 10.7 g/dL (13.0-16.5); Immature Granulocytes Count 0.090 X10^3/uL (0.0-0.0); Mean Corp Hgb Conc 32.4 g/dL (32-36); Mean Corpuscular Volume 133.6 fL (80-94); Mean Platelet Vol. 8.8 fl (6.2-12.0); NRBC Flagged by Analyzer 0 % (0-5); POSITIVE COUNT YES; POSITIVE DIFFERENTIAL YES; POSITIVE MORPHOLOGY YES; Platelet Count 287 K/mm3 (150-450); RBC Distribution Width CV 14.9 % (11.6-14.6); RBC Distribution Width SD 74.0 fl (35.1-43.9); Red Blood Count 2.47 M/mm3 (4.6-6.2)
[2025-01-21 14:27] LABS: Differential Indicated SCAN CRITERIA MET
[2025-01-21 14:31] LABS: White Blood Count 43.0 K/mm3 (4.4-11.0)
[2025-01-21 14:34] LABS: AST(SGOT) 21 U/L (<=37); Alanine Aminotransfer ALT/SGPT 17 U/L (<=46); Albumin, Serum 4.4 g/dL (3.4-4.8); Alkaline Phosphatase 176 U/L (40-129); Anion Gap 13 (5-15); BUN 33 mg/dL (4-19); BUN/Creat Ratio 17.4 RATIO (10-20); Calcium,Total 9.5 mg/dL (7.6-11.0); Carbon Dioxide 19.8 mmol/L (21.0-32.0); Chloride 108 mmol/L (98-108); Globulin 2.2 g/dL (2.2-4.2); Glucose 109 mg/dL (70-99); Potassium 4.8 mmol/L (3.3-5.1); Vitamin D,25 Hydroxy 42.1 ng/mL (30-100)
[2025-01-21 14:43] LABS: Differential Comment SCANNED
[2025-01-21 14:49] LABS: Anisocytosis 2+
== END | disposition home or self-care (01) ==
PROVIDERS: PCP Family Medicine Geriatric Medicine; Referring Provider Internal Medicine Hematology & Oncology; Visit Provider Internal Medicine Hematology & Oncology
DX: R91.8 Other nonspecific abnormal finding of lung field (principal); I10 Essential (primary) hypertension; I95.9 Hypotension, unspecified; E55.9 Vitamin D deficiency, unspecified
CPT/HCPCS: 36415; 71250; 80053; 82306; 84443; 85025

== ENCOUNTER → 2025-02-01 | Outpatient (CLI) | payer MEDICARE, OTHER, SELFPAY ==
--- NOTE | 2025-02-01 15:25 | RAD_ITS ---
PROCEDURE: L/S SPINE MIN 4 VIEWS 02/01/2025 REASON FOR EXAM: PELVIC PAIN AND LUMBAR SPONDYLOSIS TECHNIQUE: Procedure Code: RADSPLS Modality: DX Procedure: L/S SPINE MIN 4 VIEWS COMPARISON: MRI from 12/11/2024 FINDINGS: There is anatomic alignment of the lumbar spine. No demonstrated scoliotic curvature. No acute fracture, there is a chronic compression fracture affecting the superior endplate of L1. No pars defect or spondylolisthesis. Mild disc space narrowing in the lumbar spine with sclerotic endplate changes. IVC filter noted. RAD/L/S Spine Min 4 Views IMPRESSION: Age consistent multilevel degenerative changes, no acute findings Chronic compression fracture affecting the superior endplate of L1 Reading Location: [id number]
--- NOTE | 2025-02-01 15:25 | RAD_ITS ---
PROCEDURE: SACRUM-COCCYX MIN 2 VIEWS 02/01/2025 REASON FOR EXAM: PELVIC PAIN AND LUMBAR SPONDYLOSIS TECHNIQUE: Procedure Code: RADSAC Modality: DX Procedure: SACRUM-COCCYX MIN 2 VIEWS COMPARISON: None FINDINGS: Bones: Bones are demineralized. No demonstrated fracture Joints: Age consistent hip and SI joint arthrosis without subchondral changes Other: Surgical hardware in the femurs free of complication Peripheral calcifications in the abdominal aorta without aneurysm. IVC filter noted RAD/Sacrum-Coccyx min 2 Views IMPRESSION: Osteopenia, no demonstrated fracture Age consistent hip and SI joint arthrosis without subchondral changes Surgical hardware in both femurs free of complication Reading Location: [id number]
== END | disposition home or self-care (01) ==
LOC: RAD 15:22
PROVIDERS: PCP Family Medicine Geriatric Medicine; Referring Provider Anesthesiology; Visit Provider Anesthesiology
DX: R10.20 Pelvic and perineal pain unspecified side (principal); M47.816 Spondylosis without myelopathy or radiculopathy, lumbar region
CPT/HCPCS: 72110; 72220

== ENCOUNTER → 2025-03-08 | Outpatient (CLI) | payer MEDICARE, OTHER, SELFPAY ==
--- NOTE | 2025-03-08 12:24 | RAD_ITS ---
EXAM: XR Thoracic Spine, 2 Views CLINICAL INDICATION: THORACIC SPONDYLOSIS TECHNIQUE: Frontal and lateral views of the thoracic spine. COMPARISON: No relevant prior studies available. FINDINGS: VERTEBRAE: Degenerative disc disease and facet arthropathy throughout the thoracic spine. No acute fracture. Normal alignment. DISC SPACES: See above. SOFT TISSUES: Unremarkable. RAD/Thoracic Spine 2 Views IMPRESSION: Degenerative changes thoracic spine as described. Reading Location: [id number]
== END | disposition home or self-care (01) ==
LOC: RAD 12:16
PROVIDERS: PCP Family Medicine Geriatric Medicine; Referring Provider Anesthesiology; Visit Provider Anesthesiology
DX: M47.814 Spondylosis without myelopathy or radiculopathy, thoracic region (principal)
CPT/HCPCS: 72070

== ENCOUNTER 2025-03-14 14:00 | Outpatient (RCR) | payer MEDICARE, OTHER, SELFPAY ==
--- NOTE | 2024-10-06 12:00 | HP.PTEVAL ---
Patient's Visit Information Visit Information Visit Information: ADINA DAVID is a 68 year old M referred to Physical Therapy by Dr. Leighton Orozco MD with a diagnosis of R hip fracture with IM nailing, DOS: 06/03/24. Date of Evaluation: 10/04/24 Physical Therapist: Yehuda Bowens DPT Visit Plan Frequency: 2x /Week Duration: 6 Weeks Plan: 1) BLE and BUE strength 2) dynamic balance 3) endurance progression to improve distance with gait. Subjective Subjective: Pt. is here today for his initial evaluation with diagnosis of R displaced femur fracture with subsequent surgery. DOS: 05/24/24. Pt. reports sleeping on a box. Pt. multiple rehabs working on strength and mobility. PMH: COPD, falls risk, HTN, skin CA. Pt. reports having pain his R calf and the front of his leg as well. Pt. reports having issues from previous injury. Pt. reports having less pain in his R hip. Pt. reports no N/T in either LE. Pt. is sleeping well. He walks without an AD, no falls since starting PT. Pt. is hopeful to get back to walk 1 mile, camping, potential ride a motorcycle. Pain R hip: Pain Intensity (Out of 10): 3 Pain Intensity Range: 0 and 3 Comment: lateral aspect greater trochanter aspect. Objective Objective: POSTURE: Pt. has fairly normal posture in stance. Pt has slight flexed posture. Normal AMADA in stance. Normal wt. shifting. PALPATION: Pt. has normal palpation, slight tenderness at R greater trochanter and R hip flexor NEURO: normal DTR and normal sensation in BLEs. MMT: L hip: flex 30.2#, abd 33.2#; knee: 41.4#, flex 24.6# R hip: flex 17.9#, abd 13.6#; knee: ext 33.1#, flex 20.9# R shoulder: flexion 21.9#, abd 21.1# L shoulder: flexion 20.9#, 23.4# GAIT: Pt. ambulates without AD, but has marked postural sway with trunk correction. STAIRS: reciprocal to ascend, step to descend. 1 HR to complete Balance/Special Test Scores Functional Gait Assessment Score: 18 % Disability: 40.0000 Lower Extremity Functional Score: 31 TUG Test Time Seconds: 15.06 30 Second Chair Rise Test Seconds: 8 Goals Goal 1:: LTG: Pt. to be I with HEP. Goal Time Frame: 4-6 Weeks Goal 2:: LTG: Pt. to have increased BUE and BLE strength improved by 10# throughout. Goal Time Frame: 4-6 Weeks Goal 3:: LTG: Pt. to complete TUG under 10seconds without AD. Goal Time Frame: 4-6 Weeks Goal 4:: LTG: pt. to complete 30sec sit to stand rep test with at least 14 reps. Goal Time Frame: 4-6 Weeks Goal 5:: LTG: Pt. to complete 6 MWT with distances of at least 900 feet. Goal Time Frame: 4-6 Weeks Rehabilitation Potential Physical Therapy Diagnosis: Pt. has signs and symptoms consistent with R hip fracture with IM nailing, DOS: 06/03/24. Pt. has overall general weakness from being hospitalized for a longer period of time, but also has marked RLE weakness when compared to LLE, imbalance, difficulty with gait and reduced endurance. Rehabilitation Potential: Good Anticipated Interventions Patient/Client Instruction: Educate patient on: Condition, Plan of Care, Risk Factors and Benefits of Fitness Program For the Purpose of:: To improve decision making, To facilitate caregiver knowledge, To improve self management, To prevent re-injury, To improve ability to perform tasks related to life management and To improve tolerance to ADL's Therapeutic Exercise to Include: Strength training, Power training, Endurance training, Balance training, Body mechanics, Postural training, Flexibilty training, Gait and locomotor training and Dynamic Lumbar Stabilization For the Purpose of:: To decrease pain, To increase ROM, To improve nutrient delivery to tissue, To increase oxygenation perfusion, To improve muscle performance and motor function, To improve health of tissue, To decrease soft tissue restriction, To increase flexibility/ROM and To improve balance Text: Thank you for the opportunity to evaluate your patient. For Medicare and Medicare HMO plans, please review the plan of care and approve it. It will need to be FAXED BACK to us at [phone] for Medicare purposes. For Medicare only, by signing this I certify the plan of care. Please let me know if there are questions or concerns regarding this plan of care. Physician Signature: Date:
--- NOTE | 2024-12-14 15:24 | HP.PTREVAL ---
Re-Evaluation Intro: Dr. Leighton Orozco MD, It has been my pleasure to treat ADINA DAVID over the last 9 visits for R hip fracture with IM nailing, DOS: 06/03/24. Please see the progress note below for an update on the physical therapy plan of care! Subjective Subjective: Pt. reports he was in the hospital after having a procedure. They were looking at his vascularity and they was sent to another hospital with thoughts of CVA. Pt. is doing better now. No CVA, but reports being run down. Objective Objective/Function: MMT: R knee: ext 25.1#, flex 23.4#; hip Flex 12.9#, abd 18.1# L Knee: Ext 34.3#, flex 31.1#; hip: flex 25.0#, abd 22.2#, Pt. was in a hospital for ~1 week, 2 separate hospitals with a suspected CVA. PT. did not have 1, but was laid up and is now weak. Pt. has minimal improvement to slight regression in others. I attribute this to his hospital stay. I would like him to work on further strengthening, gait, dynamic balance Plan Plan Plan: Pt. would benefit from PT to work on the above goals. He actually regressed with a lot of his goals, but I feel this was due to his extended/unexpected hospital stay. I would like him to continue to work on strengthening, balance, endurance in order to increase his ability to complete all daily activities. Balance/Gait/Functional tests Balance/Special Test Scores Functional Gait Assessment Score: 18 % Disability: 40.0000 Lower Extremity Functional Score: 27 TUG Test Time Seconds: 15.46 Tug Test: <20 sec.=mostly independent 30 Second Chair Rise Test Seconds: 7 6 Minute Walk Test: 451 no AD Goals Goals Goal 1:: LTG: Pt. to be I with HEP. Goal Time Frame: 4-6 Weeks Goal Progress: Progressing Goal 2:: LTG: Pt. to have increased BUE and BLE strength improved by 10# throughout. Goal Time Frame: 4-6 Weeks Goal Progress: Not Progressing Goal 3:: LTG: Pt. to complete TUG under 10seconds without AD. Goal Time Frame: 4-6 Weeks Goal 4:: LTG: pt. to complete 30sec sit to stand rep test with at least 14 reps. Goal Time Frame: 4-6 Weeks Goal Progress: Progressing Goal 5:: LTG: Pt. to complete 6 MWT with distances of at least 900 feet. Goal Time Frame: 4-6 Weeks Goal Progress: Progressing Anticipated Interventions Anticipated Interventions Patient/Client Instruction: Educate patient on: Condition, Plan of Care, Risk Factors and Benefits of Fitness Program For the Purpose of:: To improve decision making, To facilitate caregiver knowledge, To improve self management, To prevent re-injury, To improve ability to perform tasks related to life management and To improve tolerance to ADL's Therapeutic Exercise to Include: Strength training, Power training, Endurance training, Balance training, Body mechanics, Postural training, Flexibilty training, Gait and locomotor training and Dynamic Lumbar Stabilization For the Purpose of:: To decrease pain, To increase ROM, To improve nutrient delivery to tissue, To increase oxygenation perfusion, To improve muscle performance and motor function, To improve health of tissue, To decrease soft tissue restriction, To increase flexibility/ROM and To improve balance Re-Evaluation Ending Re-evaluation ending: Please do not hesitate to contact me at [phone] by phone or if you have questions or concerns regarding this new plan of care! Sincerely, Yehuda Bowens DPT
== END 2025-03-14 19:00 | disposition home or self-care (01) ==
LOC: PT 14:00
PROVIDERS: PCP Family Medicine Geriatric Medicine; Referring Provider Family Medicine Geriatric Medicine; Visit Provider Family Medicine Geriatric Medicine
DX: S72.141G Displaced intertrochanteric fracture of right femur, subsequent encounter for closed fracture with delayed healing (principal); R53.1 Weakness; Z47.89 Encounter for other orthopedic aftercare
CPT/HCPCS: 97110; 97161; 97530

== ENCOUNTER 2025-03-31 10:46 | Outpatient (CLI) | payer MEDICARE, OTHER, SELFPAY ==
[2025-03-31 11:05] VITALS: BP 143/79; PULSE 101; RESP 18; TEMP 36.1; O2SAT 95; BMI 25.8
[2025-03-31 12:02] VITALS: BP 106/69; PULSE 89; RESP 16; TEMP 36.1; O2SAT 94
[2025-03-31 12:59] VITALS: BP 116/70; PULSE 86; RESP 16; TEMP 36.2; O2SAT 94
[2025-03-31 14:14] VITALS: BP 117/70; PULSE 87; RESP 16; TEMP 35.8; O2SAT 96
== END 2025-03-31 23:59 | disposition home or self-care (01) ==
LOC: MEDOUTP 10:46
PROVIDERS: PCP Family Medicine Geriatric Medicine; Referring Provider Nurse Practitioner Adult Health; Visit Provider Nurse Practitioner Adult Health
DX: D64.9 Anemia, unspecified (principal); I25.10 Atherosclerotic heart disease of native coronary artery without angina pectoris
CPT/HCPCS: 36430; 86850; 86900; 86901; P9016; A4216

== ENCOUNTER 2025-04-11 11:57 | Emergency (ER) | payer MEDICARE, OTHER, SELFPAY ==
[2025-04-11 11:58] VITALS: BP 142/84; PULSE 85; RESP 19; TEMP 36.6; O2SAT 97; BMI 27.0
--- NOTE | 2025-04-11 12:52 | EX.ED.DYSGE1 ---
HPI History of Present Illness Chief Complaint: General Illness Narrative Narrative: 69-year-old male history of CLL, Rhodes's esophagus, iron deficiency anemia, CKD with 1 kidney presents emergency department for complaint of elevated potassium. Patient states that he is coming from nursing facility who [facility] blood this morning noting elevated potassium level they have given him medication to get it down and then rechecked and it was still slightly high. Also noted that his white blood cell count was a little higher than normal. Patient does have a history of chronic lung infection but he is on tobramycin nebulizers over the past year for. Denies any fevers, chills, chest pain, shortness of breath, decreased urination. [facility] Medical History (Updated 04/11/25 @ 15:[address] Jyotsna Crowell, ) History of atrial fibrillation Diplopia Kidney disease (~03/31/25) GI bleed Atrial fibrillation Myocardial infarct DVT (deep venous thrombosis) Segmental and somatic dysfunction of cervical region History of fracture of femur History of reduction of closed fracture Anxiety Bladder disease Prostate disease Low iron Pulmonary embolism History of diverticulitis History of GI bleed Former smoker CPAP (continuous positive airway pressure) dependence COPD (chronic obstructive pulmonary disease) Hypertension History of stress test History of echocardiogram Cardiology follow-up encounter Paroxysmal atrial fibrillation Tachycardia LAFB (left anterior fascicular block) PAD (peripheral artery disease) Hyperlipidemia Depression Loss of hearing Cancer Chronic cough Shortness of breath on exertion History of edema History of heart attack (~2018) Tia filter in place Peripheral neuropathy Insomnia GERD (gastroesophageal reflux disease) Essential (primary) hypertension Hypomagnesemia Mastoiditis of right side TIA (transient ischemic attack) Recurrent deep vein thrombosis (DVT) Depressive disorder due to another medical condition with depressive features History of pulmonary embolism History of DVT (deep vein thrombosis) Iron deficiency anemia due to chronic blood loss Emphysema lung Multiple lipomas History of elevated PSA BPH (benign prostatic hyperplasia) AVM (arteriovenous malformation) of colon Chronic GI bleeding Diverticular disease History of skin cancer Multiple lung nodules Cancer of kidney Essential thrombocythemia Femur fracture (~2020) CKD (chronic kidney disease), stage III Debility Pulmonary fibrosis Pulmonary embolism DVT (deep venous thrombosis) Obstructive sleep apnea Coronary artery disease CLL (chronic lymphocytic leukemia) Rhodes esophagus COPD (chronic obstructive pulmonary disease) Home Medications ?Medication ?Instructions ?Recorded ?Last Taken ?Type ascorbic acid (vitamin C) 500 mg 1 g PO DAILY@1800 Supplement 03/17/24 03/16/24 History tablet cholecalciferol (vitamin D3) 50 400 unit PO DAILY@1800 Nutrition 04/06/24 Unknown History mcg (2,000 unit) capsule (Vitamin D3) budesonide 0.5 mg/2 mL suspension 0.5 mg inhalation DAILY.TCU lungs 10/22/24 Unknown History for nebulization evolocumab 140 mg/mL subcutaneous 140 mg subcut QMONTH ? 10/27/24 Unknown History pen injector (tessyazan SchultzVinodbang) escitalopram oxalate 10 mg tablet 15 mg PO DAILY depression 11/18/24 Unknown History rivaroxaban 20 mg tablet (Xarelto) 10 mg PO DAILY Blood Thinner 01/25/25 Unknown History prednisone 10 mg tablet 10 mg PO DAILY inflammation 03/31/25 Unknown History zolpidem 5 mg tablet 5 mg PO QHS mood 20 days #20 tabs 04/04/25 Unknown Rx hydroxyurea 500 mg capsule 1,500 mg PO MOTUTHFRSA@1800 kidneys 04/05/25 Unknown History loratadine 10 mg tablet (Allergy 10 mg PO DAILY PRN allergies 04/05/25 Unknown History Relief (loratadine)) metoprolol succinate 100 mg 100 mg PO DAILY BP 04/05/25 Unknown History tablet,extended release 24 hr naloxone 0.4 mg/mL injection 0.4 mg IM Q3M PRN accidental 04/05/25 Unknown History syringe overdose ondansetron 4 mg disintegrating 4 mg PO Q8H PRN nausea and vomiting 04/05/25 Unknown History tablet L.acidophil,salivari-Bifido 1 cap PO DAILYCM #1 cap 04/11/25 Unknown Rx bifidum-Strep thermoph 175 mg capsule acetaminophen 325 mg tablet 650 mg (2 x 325 mg) PO BID #1 TAB 04/11/25 Unknown Rx azithromycin 250 mg tablet 250 mg PO MoWeFr@1000 #1 TAB 04/11/25 Unknown Rx calcium carbonate 500 mg (2.5 x 200 mg calcium (500 04/11/25 Unknown Rx mg)) PO DAILY@1800 #1 TAB ferrous sulfate 325 mg (65 mg 325 mg PO DAILY@1700 #1 TAB 04/11/25 Unknown Rx iron) tablet (FeroSul) lidocaine HCl 2 % mucosal solution 15 ml PO Q3H PRN PRN MOUTH 04/11/25 Unknown Rx (Lidocaine Viscous) IRRITATION #1 mL magnesium chloride 64 mg 128 mg (2 x 64 mg) PO BID #1 TAB 04/11/25 Unknown Rx (magnesium chloride) tablet,delayed release (Mag 64) multivitamin-iron 9 mg-folic acid 1 tab PO BREAKFAST #1 TAB 04/11/25 Unknown Rx 400 mcg-calcium and minerals tablet (Therapeutic-M) oxycodone 5 mg tablet 10 mg (2 x 5 mg) PO Q4H PRN PRN 04/11/25 Unknown Rx Pain Score 1-10 1 day #1 TAB pantoprazole 40 mg tablet,delayed 40 mg PO BID #1 TAB 04/11/25 Unknown Rx release sennosides 8.6 mg-docusate sodium 2 tab PO BID #1 TAB 04/11/25 Unknown Rx 50 mg tablet (Stimulant Laxative Plus) sodium chloride 0.9 % (flush) (BD 10 - 40 ml IV UD PRN Saline Flush 04/11/25 Unknown Rx PosiFlush Normal Saline 0.9 % #1 mL injection syringe) tobramycin sulfate 40 mg/mL 300 mg (7.5 mL) inhalation Q12H.RT 04/11/25 Unknown Rx injection solution #1 mL Allergy/AdvReac Type Severity Reaction Status Date / Time amlodipine Allergy Severe RASH BOTH Verified 04/11/25 12:02 ARMS: stopped when dc'd Penicillins Allergy PT UNSURE Verified 04/11/25 12:02 OF REACTION fentanyl AdvReac Severe VISION Verified 04/11/25 12:02 PROBLEMS: Double Vision doxycycline AdvReac Unknown Upset Verified 04/11/25 12:02 Stomach Family History Father Myocardial infarction Heart disease CVA (cerebral vascular accident) Mother Colon cancer Surgical History History of embolic filter insertion History of hydrocelectomy (~12/2019) History of surgery on lower extremity (02/03/24) History of cardiac catheterization (~2018) S/P IVC filter (~2023) History of heart artery stent (~2018) History of hernia surgery (~2021) H/O kidney removal (~05/2017) History of bowel resection (~2005) Hx of tonsillectomy Social History household members: children and other details: Lives with daughter Haydee, who has a , 2 children. Smoking Status: Former smoker pack-years: 10 alcohol intake: never substance use type: does not use, former substance user and other details: marijuana EXAM Physical Exam Const Vital Signs: 04/11/25 11:58 04/11/25 13:29 04/11/25 13:57 Temperature 98 F Temperature Source Oral Pulse Rate 85 70 Respiratory Rate 19 H 14 Respiratory Effort Normal Respiratory Pattern Normal Blood Pressure 142/84 H 128/77 H Blood Pressure Mean 103 94 Pulse Ox 97 96 Oxygen Delivery Method Room Air 04/11/25 15:00 04/11/25 15:44 Temperature 98 F Temperature Source Pulse Rate 68 68 Respiratory Rate 12 12 Respiratory Effort Respiratory Pattern Blood Pressure 130/68 H 130/68 H Blood Pressure Mean 88 88 Pulse Ox 94 94 Oxygen Delivery Method Room Air Positive well nourished and well developed General Appearance ED: well developed Resp normal respiratory effort and clear to auscultation bilaterally Effort and Inspection: Negative for retractions Cardio regular rate and no murmurs GI Palpation: soft; Negative for tender Extremity normal to inspection Neuro oriented x3, CN's II-XII intact bilaterally and no sensory deficits noted Sensorium / Orientation: alert MDM MDM MDM Narrative Medical decision making narrative: 69-year-old male history of CLL, Rhodes's esophagus, iron deficiency anemia, CKD with 1 kidney presents emergency department for complaint of elevated potassium. Patient states that he is coming from nursing facility who [facility] blood this morning noting elevated potassium level they have given him medication to get it down and then rechecked and it was still slightly high. Also noted that his white blood cell count was a little higher than normal. Patient does have a history of chronic lung infection but he is on tobramycin nebulizers over the past year for. Denies any fevers, chills, chest pain, shortness of breath, decreased urination. On my Physical exam patient breathing on room air saturating 95% no acute respiratory distress. Vitals within normal limits no evidence of tachycardia or tachypnea. Patient does have elevated white blood cell count however likely in the setting of CLL. Chest x-ray showing no evidence of acute cardiopulmonary process and urinalysis negative for UTI. There has been a large increase in leukocytosis from 33-77,000 and over the past week. In the setting of patient's hyperkalemia off-and-on outpatient this could be in the setting of tumor lysis syndrome. I spoke to the patient's doctor at a TCU facility discussing his treatment and high potassium and that they are recommending admission to hospital for oncology consultation. Patient has been on hydroxyurea daily. I spoke to Dr. Denis, hospitalist regarding patient's presentation for admission for oncology consult and tumor lysis syndrome however she does not understand why patient needs to be admitted at this time and there is questionable oncology coverage over the next week due to the holiday. I spoke to Shanice with oncology who did not feel that patient needed to be admitted as patient has had leukocytosis and waxing and waning potassium likely secondary to CKD and does not feel that this is tumor lysis syndrome. Feels that patient would be stable to be discharged back to TCU. I did update patient on this and he is agreeable and will discharge his vitals are stable and return precautions given. Lab Data Attestation: I reviewed the patient's lab results. Lab results narrative: Labs reviewed showing elevated leukocytosis from 33-77,000 within a matter of a week likely in the setting of CLL however concern for possible tumor lysis syndrome. Potassium now normalized at 4.6. No evidence of infection patient not meeting SIRS criteria negative for UTI Labs: Laboratory Results - last 24 hr 04/11/25 04/11/25 13:00 14:11 WBC 77.4 H* RBC 2.80 L Hgb 10.8 L Hct 34.6 L MCV 123.6 H MCH 38.6 H MCHC 31.2 L RDW Std Deviation TNP RDW Coeff of Susan TNP Plt Count 424 MPV 9.1 Immature Gran % (Auto) 0.700 Neut % (Auto) 5.7 L Lymph % (Auto) 71.5 H Crowley % (Auto) 21.9 H Eos % (Auto) 0.0 Baso % (Auto) 0.2 Absolute Neuts (auto) 4.5 Absolute Lymphs (auto) 55.32 H Nucleated RBC % 0.1 Atypical Lymphocytes RARE Sodium 141 Potassium 4.6 Chloride 107 H Carbon Dioxide 23.9 Anion Gap 11 BUN 34 H Creatinine 1.88 H Estim Creat Clear Calc 36.04 L Est GFR (MDRD) Non-Af 38 L BUN/Creatinine Ratio 18.1 Glucose 98 Calcium 9.4 Total Bilirubin 0.24 AST 19 ALT 25 Alkaline Phosphatase 263 H Lactate Dehydrogenase 215 Total Protein 6.0 Albumin 4.0 Globulin 2.0 L Albumin/Globulin Ratio 2.1 Urine Color Yellow Urine Clarity Clear Urine pH 6.0 Ur Specific [place] 1.015 Urine Protein 30 H Urine Glucose (UA) Normal Urine Ketones Negative Urine Occult Blood Negative Urine Nitrite Negative Urine Bilirubin Negative Urine Urobilinogen Normal Ur Leukocyte Esterase Negative Radiography Chest X-Ray - ED: 1 View Diagnostic Testing: Clinical Impression(s) from Imaging Studies Chest X-Ray 04/11/25 13:40 IMPRESSION: Lungs appear clear of acute disease. No pleural effusion or pneumothorax is noted. The cardiomediastinal silhouette is remarkable for a tortuous aorta; no evidence of cardiomegaly. No interval osseous changes seen. Asymmetric right acromioclavicular joint degenerative changes are noted. Calcifications adjacent to bilateral humeral head greater tuberosity, consistent with calcific tendinosis. Reading Location: [place] [id number] Chest x-ray and bili turbid by myself showing no evidence of acute cardiopulmonary process Discharge Plan Triage Chief Complaint: General Illness ED Provider: Jyotsna Crowell Dx/Rx/DC Orders Clinical Impression: Chronic lymphocytic leukemia, Encounter for laboratory test, Tumor lysis syndrome Prescriptions: No Action ascorbic acid (vitamin C) 500 mg tablet 1 g PO DAILY@1800 Xarelto 20 mg tablet 10 mg PO DAILY Rx Instructions: must administer with evening meal Repatha SureClick 140 mg/mL pen injector 140 mg subcut QMONTH Rx Instructions: monthly on the budesonide 0.5 mg/2 mL suspension for nebulization 0.5 mg inhalation DAILY.TCU cholecalciferol (vitamin D3) [Vitamin D3] 50 mcg (2,000 unit) capsule 400 unit PO DAILY@1800 escitalopram oxalate 10 mg Tablet 15 mg PO DAILY prednisone 10 mg tablet 10 mg PO DAILY loratadine [Allergy Relief (loratadine)] 10 mg tablet 10 mg PO DAILY PRN (Reason: allergies) ondansetron 4 mg tablet,disintegrating 4 mg PO Q8H PRN (Reason: nausea and vomiting) naloxone 0.4 mg/mL syringe 0.4 mg IM Q3M PRN (Reason: accidental overdose) Rx Instructions: NTExceed 10 mg total dose/episode hydroxyurea 500 mg capsule 1,500 mg PO MOTUTHFRSA@1800 Rx Instructions: 1,500 mg orally daily EXCEPT Wednesdays & Sundays; metoprolol succinate 100 mg tablet extended release 24 hr 100 mg PO DAILY Rx Instructions: Hold for heart rate less than 55 or systolic blood pressure less than 130 mmHg. sodium chloride 0.9 % (flush) [BD PosiFlush Normal Saline 0.9] Syringe 10 - 40 ml IV UD PRN (Reason: Saline Flush) Qty: 1 0RF acetaminophen 325 mg Tablet 650 mg PO BID Qty: 1 0RF azithromycin 250 mg Tablet 250 mg PO MoWeFr@1000 Qty: 1 0RF calcium carbonate 200 mg calcium (500 mg) Tablet,Chewable 500 mg PO DAILY@1800 Qty: 1 0RF lidocaine HCl [Lidocaine Viscous] 2 % Solution 15 ml PO Q3H PRN PRN (Reason: MOUTH IRRITATION) Qty: 1 0RF ferrous sulfate [FeroSul] 325 mg (65 mg iron) Tablet 325 mg PO DAILY@1700 Qty: 1 0RF L.acidoph,saliva-B.bif-S.therm 175 mg Capsule 1 cap PO DAILYCM Qty: 1 0RF magnesium chloride [Mag 64] 64 mg Tablet,Delayed Release (Dr/Ec) 128 mg PO BID Qty: 1 0RF sennosides-docusate sodium [Stimulant Laxative Plus] 8.6-50 mg Tablet 2 tab PO BID Qty: 1 0RF pantoprazole 40 mg Tablet,Delayed Release (Dr/Ec) 40 mg PO BID Qty: 1 0RF oxycodone 5 mg Tablet 10 mg PO Q4H PRN PRN (Reason: Pain Score 1-10) 1 Days Qty: 1 0RF Therapeutic-M 9 mg iron-400 mcg Tablet 1 tab PO BREAKFAST Qty: 1 0RF tobramycin sulfate 40 mg/mL Solution 300 mg inhalation Q12H.RT Qty: 1 0RF zolpidem 5 mg tablet 5 mg PO QHS 20 Days Qty: 20 0RF Primary Care Provider: Leighton Orozco Chi Referrals: Leighton Orozco Chi, MD [Primary Care Provider, Geriatrics] Activity Restrictions/Additional Instructions: Please follow-up with your primary care provider within the next 1 to 2 days regarding your visit today. Potassium level today was within normal limits here in emergency department. No evidence of infection on your chest x-ray or blood work with chronic findings consistent with your CLL diagnosis. If you develop any fevers, shortness of breath or infectious symptoms return to the emergency department for reevaluation. Print Language: Yakut Disposition Disposition: Home, Self Care
[2025-04-11 13:18] LABS: Hematocrit 34.6 % (40-54); Hemoglobin 10.8 g/dL (13.0-16.5); Immature Granulocytes Count 0.530 X10^3/uL (0.0-0.0); Mean Corp Hgb Conc 31.2 g/dL (32-36); Mean Corpuscular Volume 123.6 fL (80-94); Mean Platelet Vol. 9.1 fl (6.2-12.0); NRBC Flagged by Analyzer 0.1 % (0-5); POSITIVE COUNT YES; POSITIVE DIFFERENTIAL YES; POSITIVE MORPHOLOGY YES; Platelet Count 424 K/mm3 (150-450); Red Blood Count 2.80 M/mm3 (4.6-6.2)
[2025-04-11 13:19] LABS: Differential Indicated SCAN CRITERIA MET; White Blood Count 77.4 K/mm3 (4.4-11.0)
[2025-04-11] MEDS: 0.9% Normal Saline (500mL Bag) 500 ML 999 ML IV (13:26)
--- NOTE | 2025-04-11 13:40 | RAD_ITS ---
PROCEDURE: CHEST 1 VIEW (PORTABLE) 04/11/2025 REASON FOR EXAM: INCREASE WBC TECHNIQUE: Frontal view of the chest. COMPARISON: Chest x-ray of 06/15/2024. RAD/Chest 1 View (Portable) IMPRESSION: Lungs appear clear of acute disease. No pleural effusion or pneumothorax is no kali. The cardiomediastinal silhouette is remarkable for a tortuous aorta; no evidenc e of cardiomegaly. No interval osseous changes seen. Asymmetric right acromioclavicular joint deg enerative changes are noted. Calcifications adjacent to bilateral humeral head greater tuberosity, consisten t with calcific tendinosis. Reading Location: [place] [id number]
[2025-04-11 13:57] VITALS: BP 128/77; PULSE 70; RESP 14; O2SAT 96
[2025-04-11 14:13] LABS: LDH 215 U/L (87-241)
[2025-04-11 14:16] LABS: AST(SGOT) 19 U/L (<=37); Alanine Aminotransfer ALT/SGPT 25 U/L (<=46); Albumin, Serum 4.0 g/dL (3.4-4.8); Alkaline Phosphatase 263 U/L (40-129); Anion Gap 11 (7-18); BUN 34 mg/dL (4-19); BUN/Creat Ratio 18.1 RATIO (10-20); Calcium,Total 9.4 mg/dL (7.6-11.0); Carbon Dioxide 23.9 mmol/L (20.0-29.0); Chloride 107 mmol/L (96-106); Estimated Creatinine Clearance 36.04 ml/min (50-250); Globulin 2.0 g/dL (2.2-4.2); Glucose 98 mg/dL (70-99); Potassium 4.6 mmol/L (3.5-5.1)
[2025-04-11 14:18] LABS: Color, Urine Yellow (Yellow); Glucose, Dipstick Normal (Normal); Ketone-Dipstick Negative (Negative); Leukocyte Esterase-Dipstick Negative /ul (Negative); Nitrite-Dipstick Negative (Negative); Occult Blood-Urine Negative /ul (Negative); Protein-Dipstick 30 mg/dl (Negative); Specific Gravity, Urine 1.015 (1.002-1.030); Urine Bilirubin Dipstick Negative (Negative)
[2025-04-11 15:00] VITALS: BP 130/68; PULSE 68; RESP 12; O2SAT 94
[2025-04-11 15:44] VITALS: BP 130/68; PULSE 68; RESP 12; TEMP 36.6; O2SAT 94
[2025-04-11 17:00] VITALS: BP 161/84; PULSE 74; O2SAT 97
== END 2025-04-11 20:37 | disposition home or self-care (01) ==
PROVIDERS: Emergency Provider Student in an Organized Health Care Education/Training Program; PCP Family Medicine Geriatric Medicine; Visit Provider Student in an Organized Health Care Education/Training Program
DX: C91.10 Chronic lymphocytic leukemia of B-cell type not having achieved remission (principal); J43.9 Emphysema, unspecified; N18.30 Chronic kidney disease, stage 3 unspecified; Z86.711 Personal history of pulmonary embolism; I12.9 Hypertensive chronic kidney disease with stage 1 through stage 4 chronic kidney disease, or unspecified chronic kidney disease; Z87.891 Personal history of nicotine dependence; Z86.718 Personal history of other venous thrombosis and embolism; I25.10 Atherosclerotic heart disease of native coronary artery without angina pectoris; E88.3 Tumor lysis syndrome; E78.5 Hyperlipidemia, unspecified; D50.9 Iron deficiency anemia, unspecified; Z90.5 Acquired absence of kidney; Z79.899 Other long term (current) drug therapy; E87.5 Hyperkalemia
CPT/HCPCS: 71045; 80053; 81002; 83615; 85025; 87040; 96360; 96361; 99283; A4216